=== PATIENT | female | born 1960 | race Caucasian/White ===

== ENCOUNTER → 2019-02-24 09:26 | Outpatient (CLI) | payer OTHER, SELFPAY ==
--- NOTE | 2019-02-24 09:37 | BD_ITS ---
STUDY: DUAL ENERGY X-RAY ABSORPTIOMETRY / DXA REASON FOR EXAM: Female, 59 years old. The patient is postmenopausal. History of breast cancer. TECHNIQUE: Bone Mineral Density (BMD) measurements of lumbar spine and bilateral hips were obtained. COMPARISON: Comparison is made with prior study dated January 24, 2017. FINDINGS: Lumbar Spine (L1-L4): g/cm2 (1.247) / T-score (0.6) / Z-score (1.7) Findings are suggestive of normal bone density with a low fracture risk. Left Femur Total: g/cm2 (0.951) / T-score (-0.5) / Z-score (0.5) Left Femoral Neck: g/cm2 (0.920) / T-score (-0.9) / Z-score (0.4) Right Femur Total: g/cm2 (0.894) / T-score (-0.9) / Z-score (0.0) Right Femoral Neck: g/cm2 (0.879) / T-score (-1.1) / Z-score (0.1) The T-Scores on the most recent prior examination were: Lumbar Spine (L1-L4): There has been worsening of bone density since the previous examination. Left Femur Total: which represents a worsening of 0.5%. Right Femur Total: which represents a worsening of 7.4%. BD/Dexa Bone Density Study IMPRESSION: The patient is considered osteopenic as outlined below according to World Michael Organization (WHO) criteria with a low fracture risk. There has been worsening of bone density since the previous examination. Reference Information: The T-score is the number of standard deviations above or below the standard which is normal for young adults at their peak bone mineral density. The World Health Organization (WHO) interprets the T-scores as follows: Above -1 Normal bone density Between -1 and -2.5 Osteopenia Equal to / or below -2.5 Osteoporosis As a practical clinical guideline, osteopenia may be graded as follows: Mild -1 through -1.5 Moderate -1.6 through -2.0 Severe -2.1 through -2.4 The Z-score is the number of standard deviations above or below age-matched controls. A Z-score of less than -1.5 would be considered abnormal. References: 1. NIH Osteoporosis and Related Bone Diseases http://www.osteo.org 2. International Society for Clinical Densitometry http://www.iscd.org 3. National Osteoporosis Foundation http://www.nof.org Electronically Signed: Dawson Medina, at 8:34 EST , Service support ,
== END ==
PROVIDERS: Family Provider Internal Medicine; PCP Internal Medicine; Referring Provider Internal Medicine Gastroenterology; Visit Provider Internal Medicine Gastroenterology
DX: K74.3 Primary biliary cirrhosis (principal); Z78.0 Asymptomatic menopausal state
CPT/HCPCS: 77080

== ENCOUNTER → 2019-03-02 10:23 | Outpatient (CLI) | payer OTHER, SELFPAY ==
[2019-03-02 12:35] LABS: Vitamin D,25 Hydroxy 70.4 ng/mL (29.95-100.01)
== END ==
PROVIDERS: Family Provider Internal Medicine; PCP Internal Medicine; Referring Provider Internal Medicine Gastroenterology; Visit Provider Internal Medicine Gastroenterology
DX: M85.9 Disorder of bone density and structure, unspecified (principal)
CPT/HCPCS: 36415; 82306

== ENCOUNTER → 2021-11-30 | Outpatient (CLI) | payer BC, SELFPAY ==
--- NOTE | 2021-11-30 08:11 | US_ITS ---
STUDY: ABDOMINAL ULTRASOUND - RIGHT UPPER QUADRANT REASON FOR VISIT: Female, 61 years old . Primary biliary cirrhosis. TECHNIQUE: Ultrasound evaluation of the right upper quadrant was performed with real-time and static barrios-scale imaging. TECHNICAL QUALITY: Adequate. COMPARISON: None. FINDINGS: Liver: The liver is enlarged and measures 18 cm. There is increased echogenicity consistent with fatty infiltration. The bile ducts are within normal limits. There is hepatic color flow. The direction of portal flow is hepatopetal. There is a 1.5 cm x 0.8 cm x 0.8 cm hemangioma in the right lobe of the liver. Gallbladder: Normal distended gallbladder. The gallbladder wall measures 1.3 mm. There is a negative sonographic Garcia''s sign. There is no pericholecystic fluid. There is a solitary echogenic gallstone within the gallbladder. This measures 1.2 cm x 1 cm x 0.4 cm. Common Bile Duct (C.B.D.): The common bile duct measures 3.6 mm. Pancreas: Normal size of the head, body and tail of the pancreas. There is normal echogenicity of the pancreas. There is no demonstrated pancreatic mass or cyst. Right Kidney: Normal size of the right kidney. The right kidney measures 10.8 cm x 4.5 cm x 4.1 cm. Normal renal cortex. The right cortex measures 1.5 cm. There is no demonstrated renal mass or cyst. There is no right hydronephrosis. Findings suggestive of a 2 nonobstructive intrarenal calculi. The larger measures 11 mm x 9 mm x 3 mm. US/Abdomen Limited IMPRESSION: Hepatomegaly and fatty infiltration of the liver. 1.5 cm x 0.8 cm x 0.8 cm hemangioma in the right lobe. Small right intrarenal calculus. Electronically Signed: Dawson Medina MD at 15:08 EDT ,
--- NOTE | 2021-11-30 08:12 | US_ITS ---
STUDY: ABDOMINAL ULTRASOUND - ELASTOGRAPHY REASON FOR VISIT: Female, 61 years old. History of primary biliary cirrhosis. TECHNIQUE: Liver stiffness measurements were obtained on a [employer] RS 85 ultrasound machine using a CA 1-7 probe following the SRU guidelines. 3 measurements were obtained using a 2-D-SWE method. The IQR/M was 19% suggesting a quality data set. TECHNICAL QUALITY: Adequate. COMPARISON: Comparison is made with prior sonogram done earlier today. FINDINGS: Liver: And homogeneous echotexture of the liver. Median liver stiffness measured 6.2 kPa. US/Elastography Parenchyma/Organ IMPRESSION: Liver stiffness measures 6.2 kPa compatible with F2-F3 (Mild to moderate liver fibrosis) Metavir score. Electronically Signed: Dawson Medina MD at 15:11 EDT ,
--- NOTE | 2021-11-30 08:12 | RAD_ITS ---
STUDY: X-RAY - ESOPHAGUS (BARIUM SWALLOW) WITH FLUOROSCOPY REASON FOR EXAM: Female, 61 years old. DYSPHAGIA. Foods get stuck in the esophagus. TECHNIQUE: 26 view(s) of the esophagus were obtained following swallowing of barium. FLUOROSCOPY TIME (if supplied): (54 seconds) minutes/seconds COMPARISON: None. FINDINGS: There is no demonstrated esophageal foreign body. There is no demonstrated stricture or mucosal abnormality. Normal gastroesophageal junction, without a demonstrated hiatal hernia. Tertiary contraction of the distal esophagus. The patient ingested a 12 mm tablet of barium. The tablet described at the gastroesophageal junction. There is atherosclerotic tortuosity of the aortic arch and descending thoracic aorta. Normal visualized pulmonary parenchyma. Normal visualized osseous structures of the thorax. RAD/Esophagus Dual Contrast IMPRESSION: The patient ingested 12 mm tablet that barium. The tablet is trapped at the gastroesophageal junction. Electronically Signed: Dawson Medina MD at 9:36 EDT ,
== END | disposition home or self-care (01) ==
PROVIDERS: PCP Internal Medicine; Referring Provider Internal Medicine Gastroenterology; Visit Provider Internal Medicine Gastroenterology
DX: R13.10 Dysphagia, unspecified (principal)
CPT/HCPCS: 74221; 76705; 76981

== ENCOUNTER → 2021-12-27 | Outpatient (CLI) | payer BC, SELFPAY ==
--- NOTE | 2021-12-27 11:23 | BD_ITS ---
STUDY: DUAL ENERGY X-RAY ABSORPTIOMETRY / DXA REASON FOR EXAM: Female, 61 years old. Z780. Patient is postmenopausal. TECHNIQUE: Bone Mineral Density (BMD) measurements of lumbar spine and left hip were obtained. COMPARISON: Comparison is made with prior study 02/24/2019. FINDINGS: Lumbar Spine (L1-L4): g/cm2 (1.054) / T-score (0.1) / Z-score (1.7) Findings are suggestive of normal bone density with a low fracture risk. Left Femur Total: g/cm2 (0.931) / T-score (-0.1) / Z-score (1.0) Left Femoral Neck: g/cm2 (0.776) / T-score (-0.7) / Z-score (0.8) The T-Scores on the most recent prior examination were: Lumbar Spine (L1-L4): There has been worsening of bone density since the previous examination. Left Femur Total: which represents an improvement of 5.1%. BD/Dexa Bone Density Study IMPRESSION: The patient is considered normal as outlined below according to World Michael Organization (WHO) criteria with a low fracture risk. There has been improvement of bone density since the previous examination. Reference Information: The T-score is the number of standard deviations above or below the standard which is normal for young adults at their peak bone mineral density. The World Health Organization (WHO) interprets the T-scores as follows: Above -1 Normal bone density Between -1 and -2.5 Osteopenia Equal to / or below -2.5 Osteoporosis As a practical clinical guideline, osteopenia may be graded as follows: Mild -1 through -1.5 Moderate -1.6 through -2.0 Severe -2.1 through -2.4 The Z-score is the number of standard deviations above or below age-matched controls. A Z-score of less than -1.5 would be considered abnormal. References: 1. NIH Osteoporosis and Related Bone Diseases www osteo.org 2. International Society for Clinical Densitometry www iscd.org 3. National Osteoporosis Foundation www nof.org Electronically Signed: Dawson Medina MD at 14:25 EDT ,
== END | disposition home or self-care (01) ==
PROVIDERS: PCP Internal Medicine; Visit Provider Internal Medicine Gastroenterology
DX: Z78.0 Asymptomatic menopausal state (principal)
CPT/HCPCS: 77080

== ENCOUNTER 2023-07-08 16:09 | Emergency (ER) | payer BC, SELFPAY ==
[2023-07-08 16:09] VITALS: BP 133/90; PULSE 96; RESP 16; TEMP 36.6; O2SAT 97; BMI 29.9
[2023-07-08 17:38] LABS: Mucous, Urine 0 SEEN /hpf (<or=2+)
[2023-07-08 17:40] LABS: Absolute Lymphocyte Count 1.06 X10^3/uL (0.83-4.51); Absolute Neutrophil Count 6.5 X10^3/uL (2.0-7.7); Basophil# 0.04 X10^3/uL; Basophil% 0.5 % (0-1); Eosinophil# 0.05 X10^3/uL; Eosinophils% 0.6 % (0-5); Hematocrit 32.3 % (37-47); Hemoglobin 10.4 g/dL (12.0-15.0); Lymphocyte # 1.06 X10^3/ul (0.83-4.51); Lymphocyte % 12.7 % (19-41); Mean Corp Hgb Conc 32.2 g/dL (32-36); Mean Corpuscular Hgb 27.8 pg (27.0-32.0); Mean Corpuscular Volume 86.4 fL (81-99); Mean Platelet Vol. 10.4 fl (6.2-12.0); Monocyte# 0.71 X10^3/uL; Monocyte% 8.5 % (0-10); NRBC Flagged by Analyzer 0 % (0-5); Neutrophil # 6.47 X10^3/uL (2.7-7.7); Neutrophil % 77.5 % (47-70); Platelet Count 240 K/mm3 (150-450); RBC Distribution Width CV 14.3 % (11.6-14.6); RBC Distribution Width SD 45.2 fl (35.1-43.9); Red Blood Count 3.74 M/mm3 (4.2-5.4); White Blood Count 8.4 K/mm3 (4.4-11.0)
[2023-07-08 17:53] LABS: Anion Gap 6 (5-15); BUN 15 mg/dL (7-18); BUN/Creat Ratio 13.5 RATIO (10-20); Calcium,Total 9.1 mg/dL (8.5-10.1); Chloride 102 mmol/L (98-107); Creatinine, Serum 1.11 mg/dL (0.55-1.02); EST Glomerular Filtration Rate 53 mL/min (>60); Est Glom Filt Rate - Afr Amer 64 mL/min (>60); Estimated Creatinine Clearance 56.04 ml/min; Glucose 294 mg/dL (74-106); Potassium 3.7 mmol/L (3.5-5.1); Sodium Level 137 mmol/L (136-145)
[2023-07-08 18:01] LABS: Color, Urine Yellow (Yellow); Glucose, Dipstick 1000 mg/dl (Normal); Ketone-Dipstick Negative (Negative); Leukocyte Esterase-Dipstick 500 /ul (Negative); Nitrite-Dipstick Negative (Negative); Occult Blood-Urine 250 /ul (Negative); Protein-Dipstick 100 mg/dl (Negative); Specific Gravity, Urine 1.015 (1.002-1.030); Urine Bilirubin Dipstick Negative (Negative); Urine Clarity Cloudy (Clear); Urine Urobilinogen Normal (Normal)
--- NOTE | 2023-07-08 18:44 | EX.ED.DYSGE1 ---
HPI History of Present Illness Chief Complaint: Complaint Narrative Narrative: 63-year-old female presenting with vague complaint of weakness. She states she just feels off. Patient states she woke up this way but feels better now. She denies chest pain or shortness of breath. She denies fevers or chills. She denies nausea or vomiting. She does state that she has some mild suprapubic pain which is more increased on the left. She states she was at the urgent care prior to coming here and had some blood in her urine. She has increased urinary frequency but no dysuria. No history of kidney stones. No back or flank pain. No diarrhea or constipation. [facility] Medical History Abnormal mammogram of left breast Breast cancer HTN (hypertension) Home Medications trazodone 50 mg tablet 25 mg PO QHS PRN Sleep 06/07/14 [History Last Taken 06/06/14 22:00] ascorbic acid (vitamin C) 100 mg tablet 500 mg PO QDAY 03/29/17 [History Last Taken Unknown] calcium carbonate 600 mg calcium (1,500 mg) tablet (Calcium) 600 mg PO QDAY 03/29/17 [History Last Taken Unknown] lisinopril 20 mg-hydrochlorothiazide 12.5 mg tablet 1 tab PO QDAY 03/29/17 [History Last Taken Unknown] ursodiol 500 mg tablet (DARRELL Forte) 1,500 mg PO QDAY 03/29/17 [History Last Taken Unknown] vitamin E (dl, acetate) 45 mg (100 unit) capsule 400 unit PO QDAY 03/29/17 [History Last Taken Unknown] aspirin 81 mg chewable tablet 81 mg PO ONCE 04/04/17 [History Last Taken 04/16/17] cyanocobalamin (vitamin B-12) 1,000 mcg capsule 1,000 mcg PO DAILY 04/23/17 [History Last Taken Unknown] ergocalciferol (vitamin D2) 1,250 mcg (50,000 unit) capsule (Vitamin D2) 1.25 mg PO TUSA 04/23/17 [History Last Taken Unknown] hydrocodone-acetaminophen 5-325mg 5mg-325mg 1 tab PO Q6H PRN PRN Pain ##10 04/24/17 [Rx Last Taken Unknown] cephalexin 500 mg capsule 500 mg PO Q12 #14 CAPSULES 07/08/23 [Rx Last Taken Unknown] metformin 500 mg tablet,extended release 24 hr 500 mg PO BID #60 tabs 07/08/23 [Rx Last Taken Unknown] Allergy/AdvReac Type Severity Reaction Status Date / Time No Known Allergies Allergy Verified 07/08/23 16:09 Family History Mother Diabetes Heart disease Hypertension CVA (cerebral vascular accident) Father Diabetes Hypertension Surgical History History of section S/P breast biopsy S/P total knee replacement Social History Smoking Status: Never smoker alcohol intake: current alcohol intake frequency: 0-2 drinks per day substance use type: does not use EXAM Physical Exam Const Vital Signs: 07/08/23 16:09 07/08/23 19:00 07/08/23 20:23 Temperature 97.9 F 98.3 F 98.4 F Temperature Source Temporal Temporal Oral Pulse Rate 96 92 71 Respiratory Rate 16 16 16 Blood Pressure 133/90 H 152/89 H 138/74 H Blood Pressure Mean 104 110 95 Pulse Ox 97 97 96 Oxygen Delivery Method Room Air Room Air Positive well nourished General Appearance ED: NAD; Negative for pallor HEENT Reports moist mucous membranes Eyes PERRL and EOMs intact bilaterally Chest Wall inspection of chest normal Resp normal respiratory effort and clear to auscultation bilaterally Auscultation: Negative for rales, rhonchi or wheezes Cardio regular rate and regular rhythm GI GI Narrative: Mild suprapubic tenderness on the left Neuro oriented x3 Sensorium / Orientation: alert Psych mental status grossly normal Skin no rashes or lesions noted General Skin Exam: Negative for jaundice or pallor MDM MDM MDM Narrative Medical decision making narrative: Patient with mild complaints of urine blood in her urine. She states she feels off. Patient denies urinary frequency without dysuria. After discussion patient states that she had blood work done recently which showed her blood sugar was high and she has no history of diabetes. She is not on any medications. She states her blood sugars have been in the 300s. Differential includes new onset diabetes, dehydration, anemia, electro abnormalities, UTI, pyelonephritis. CBC was obtained to assess white blood cell count, hemoglobin, platelets. BMP to assess renal function, electrolytes, glucose, anion gap. Urinalysis to assess for UTI. CBC shows normal white blood cell count. Hemoglobin 10.4 with no recent comparison. Creatinine slightly elevated 1.11 and patient was given IV fluids. Urinalysis shows 500 leukocyte esterase, greater than 100 white blood cells, 2+ bacteria with 0-5 squamous epithelial cells. Patient given Keflex and urine culture sent. Discussed with Dr. Saha who is on-call for her primary care. He recommended starting metformin ER twice daily as the patient states that metformin would give her stomach issues and she already has stomach issues. Dr. Saha stated that the ER metformin would help with the symptoms. Patient also was given Keflex for home. Patient to follow-up next week for diabetic teaching and return precautions discussed. Impression: 1. Hyperglycemia 2. UTI Lab Data Attestation: I reviewed the patient's lab results. Labs: Laboratory Results - last 24 hr 07/08/23 17:25 WBC 8.4 RBC 3.74 L Hgb 10.4 L Hct 32.3 L MCV 86.4 MCH 27.8 MCHC 32.2 RDW Std Deviation 45.2 H RDW Coeff of Rosie 14.3 Plt Count 240 MPV 10.4 Immature Gran % (Auto) 0.200 Neut % (Auto) 77.5 H Lymph % (Auto) 12.7 L [place] % (Auto) 8.5 Eos % (Auto) 0.6 Baso % (Auto) 0.5 Absolute Neuts (auto) 6.5 Absolute Lymphs (auto) 1.06 Nucleated RBC % 0 Sodium 137 Potassium 3.7 Chloride 102 Carbon Dioxide 29.0 Anion Gap 6 BUN 15 Creatinine 1.11 H Estim Creat Clear Calc 56.04 Est GFR (MDRD) Af Amer 64 Est GFR (MDRD) Non-Af 53 L BUN/Creatinine Ratio 13.5 Glucose 294 H Calcium 9.1 Urine Color Yellow Urine Clarity Cloudy Urine pH 6.0 Ur Specific [place] 1.015 Urine Protein 100 H Urine Glucose (UA) 1000 H Urine Ketones Negative Urine Occult Blood 250 H Urine Nitrite Negative Urine Bilirubin Negative Urine Urobilinogen Normal Ur Leukocyte Esterase 500 H Urine RBC 10-25 SEEN Urine WBC >100 SEEN Ur Squamous Epith Cells 0-5 SEEN Amorphous Sediment 1+ URATE Urine Bacteria 2+ Urine Mucus 0 SEEN Discharge Plan Triage Chief Complaint: Complaint ED Provider: Jaquan Nelson Dx/Rx/DC Orders Instructions: ED Diabetic Hyperglycemia, ED Cystitis Female Adult Prescriptions: New metformin 500 mg tablet extended release 24 hr 500 mg PO BID Qty: 60 0RF cephalexin 500 mg capsule 500 mg PO Q12 Qty: 14 0RF No Action aspirin 81 mg tablet,chewable 81 mg PO ONCE lisinopril-hydrochlorothiazide 20-12.5 mg tablet 1 tab PO QDAY vitamin E (dl, acetate) 100 unit capsule 400 unit PO QDAY ascorbic acid (vitamin C) 100 mg tablet 100 mg tablet 500 mg PO QDAY calcium carbonate [Calcium 600] 600 mg calcium (1,500 mg) tablet 600 mg PO QDAY ursodiol [DARRELL Forte] 500 mg tablet 1,500 mg PO QDAY trazodone 50 MG tablet 25 mg PO QHS PRN (Reason: Sleep) ergocalciferol (vitamin D2) [Vitamin D2] 50,000 UNIT capsule 1.25 mg PO TUSA cyanocobalamin (vitamin B-12) 1,000 MCG capsule 1,000 mcg PO DAILY hydrocodone-acetaminophen 1 TABLET tablet 1 tab PO Q6H PRN PRN (Reason: Pain) Qty: 10 0RF Primary Care Provider: Asha Pratt Referrals: Asha Pratt MD [Primary Care Provider] - Disposition Disposition: Home, Self Care
[2023-07-08 18:53] LABS: Amorphous Sediment 1+ URATE; Bacteria 2+ /hpf (None Seen); Red Blood Cells-Urine 10-25 SEEN /hpf (0-5); Squamous Epithelial Cells - UA 0-5 SEEN /hpf (5-10); White Blood Cells >100 SEEN /hpf (0-5)
[2023-07-08] MEDS: 0.9% Normal Saline (1000mL) 1,000 ML 999 ML IV (18:58)
[2023-07-08 19:00] VITALS: BP 152/89; PULSE 92; RESP 16; TEMP 36.8; O2SAT 97
[2023-07-08 20:23] VITALS: BP 138/74; PULSE 71; RESP 16; TEMP 36.9; O2SAT 96
[2023-07-08] MEDS: Cephalexin 250 MG Capsule 500 MG PO (20:32)
[2023-07-08 20:35] VITALS: BP 132/71; PULSE 72; RESP 15; TEMP 36.4; O2SAT 97
== END 2023-07-08 20:40 | disposition home or self-care (01) ==
PROVIDERS: Emergency Provider Student in an Organized Health Care Education/Training Program; PCP Internal Medicine; Visit Provider Student in an Organized Health Care Education/Training Program
DX: R73.9 Hyperglycemia, unspecified (principal); N39.0 Urinary tract infection, site not specified
CPT/HCPCS: 80048; 81001; 85025; 87086; 87088; 96365; 99284; J7030; A4216

== ENCOUNTER 2023-10-15 15:28 | Outpatient (RCR) | payer SELFPAY | END 2023-10-15 19:00 | disposition home or self-care (01) | LOC: PT 15:28 | PROVIDERS: PCP Internal Medicine | DX: Z00.00 Encounter for general adult medical examination without abnormal findings (principal) ==

== ENCOUNTER → 2024-03-24 | Outpatient (CLI) | payer MEDICARE, OTHER, SELFPAY ==
--- NOTE | 2024-03-24 08:27 | US_ITS ---
STUDY: ABDOMINAL ULTRASOUND - RIGHT UPPER QUADRANT REASON FOR VISIT: Female, 64 years old [place] TECHNIQUE: Ultrasound evaluation of the right upper quadrant was performed with real-time and static barrios-scale imaging. TECHNICAL QUALITY: Adequate. COMPARISON: 11/30/2021 FINDINGS: Liver: The liver measures 15.5 cm. There is normal echogenicity of the liver. The bile ducts are within normal limits. There is hepatic color flow. The direction of portal flow is hepatopetal. No change in 1.2 cm hyperechoic mass within the right lobe of liver likely consistent with a small hemangioma. Gallbladder: Normal distended gallbladder. The gallbladder wall measures 2 mm. There is a negative sonographic Garcia''s sign. There is no pericholecystic fluid. There are multiple echogenic structures within the gallbladder, consistent with multiple gallstones. Common Bile Duct (C.B.D.): The common bile duct measures 4 mm. Pancreas: Normal size of the head, body and tail of the pancreas. There is normal echogenicity of the pancreas. There is no demonstrated pancreatic mass or cyst. Right Kidney: Normal size of the right kidney. The right kidney measures 10.6 cm. Normal renal cortex. The right cortex measures 1.3 cm. There is no demonstrated renal mass or cyst. There is no right hydronephrosis. US/Abdomen Limited IMPRESSION: Cholelithiasis. Electronically Signed: Dominic Tracy MD at 12:47 EST ,
--- NOTE | 2024-03-24 09:13 | BD_ITS ---
STUDY: DUAL ENERGY X-RAY ABSORPTIOMETRY / DXA REASON FOR EXAM: Female, 64 years old. Z780 TECHNIQUE: Bone Mineral Density (BMD) measurements of lumbar spine and left hip were obtained. COMPARISON: None. FINDINGS: Lumbar Spine (L1-L4): g/cm2 (1.062) / T-score (0.1) / Z-score (1.9) Findings are suggestive of normal bone density with a low fracture risk. Left Femur Total: g/cm2 (0.925) / T-score (-0.1) / Z-score (1.1) Left Femoral Neck: g/cm2 (0.757) / T-score (-0.8) / Z-score (0.7) The T-Scores on the most recent prior examination were: Lumbar Spine (L1-L4): There has been improvement of bone density since the previous examination. Left Femur Total: which represents a worsening of 0.7%. BD/Dexa Bone Density Study IMPRESSION: The patient is considered normal as outlined below according to World Michael Organization (WHO) criteria with a low fracture risk. There has been improvement of bone density since the previous examination. Reference Information: The T-score is the number of standard deviations above or below the standard which is normal for young adults at their peak bone mineral density. The World Health Organization (WHO) interprets the T-scores as follows: Above -1 Normal bone density Between -1 and -2.5 Osteopenia Equal to / or below -2.5 Osteoporosis As a practical clinical guideline, osteopenia may be graded as follows: Mild -1 through -1.5 Moderate -1.6 through -2.0 Severe -2.1 through -2.4 The Z-score is the number of standard deviations above or below age-matched controls. A Z-score of less than -1.5 would be considered abnormal. References: 1. NIH Osteoporosis and Related Bone Diseases www osteo.org 2. International Society for Clinical Densitometry www iscd.org 3. National Osteoporosis Foundation www nof.org Electronically Signed: Dawson Medina MD at 8:30 EST ,
== END | disposition home or self-care (01) ==
LOC: OPBD 08:26
PROVIDERS: PCP Internal Medicine; Referring Provider Internal Medicine Gastroenterology; Visit Provider Internal Medicine Gastroenterology
DX: Z78.0 Asymptomatic menopausal state (principal); K74.3 Primary biliary cirrhosis
CPT/HCPCS: 76705; 77080

== ENCOUNTER 2024-05-21 11:40 | Emergency (ER) | payer MEDICARE, OTHER, SELFPAY ==
[2024-05-21 11:41] VITALS: BP 197/128; PULSE 124; RESP 16; TEMP 36.4; O2SAT 98; BMI 29.0
--- NOTE | 2024-05-21 12:03 | EKG12_ITS ---
Test Reason : SOB Blood Pressure : */* mmHG Vent. Rate : 126 BPM Atrial Rate : 126 BPM P-R Int : 136 ms QRS Dur : 80 ms QT Int : 312 ms P-R-T Axes : 43 15 72 degrees QTcB Int : 451 ms Sinus tachycardia Possible Left atrial enlargement Borderline ECG Confirmed by EDUARDO NARAYAN, MIKALEA ([id number]), legal editor SERENITY CARLSON ([id number]) on 05/25/2024 8:06:33 AM Referred By: Confirmed By: MIKAELA CLARK MD
--- NOTE | 2024-05-21 12:09 | EX.ED.DYSGE1 ---
HPI History of Present Illness Chief Complaint: Hypertension Informant: patient Narrative Narrative: Presents for evaluation of elevated blood pressure today 214/160. She has been noticing palpitations for 3 days mild dyspnea with deep breaths today. Postop day 3 left breast capsule removal outpatient under general anesthesia. No leg swelling or cramping. No history of PE or DVT. Denies cough symptoms. Denies vomiting or diarrhea. She is tolerating oral fluids. Denies headache chest pains or abdominal pain. 3 weeks ago had added blood pressure medicine of amlodipine 2.5 mg to her 50 mg losartan by her PCP due to systolic blood pressure 150s. She did not take her medications today.Breast cancer history currently on oral chemotherapy and hormone therapy. She is followed by Dr. Olivia. [facility] Medical History Acute kidney injury Chemotherapy induced cardiomyopathy Malignant neoplasm of lower-outer quadrant of left breast of female, estrogen receptor positive Type 2 diabetes mellitus with hyperglycemia Primary biliary cirrhosis History of chemotherapy Breast cancer Abnormal mammogram of left breast HTN (hypertension) Home Medications ?Medication ?Instructions ?Recorded ?Last Taken ?Type ascorbic acid (vitamin C) 100 mg 500 mg PO QDAY 03/29/17 05/20/24 History tablet ursodiol 500 mg tablet (DARRELL Forte) 1,500 mg PO QDAY 03/29/17 05/20/24 History vitamin E (dl, acetate) 45 mg (100 400 unit PO QDAY 03/29/17 05/20/24 History unit) capsule aspirin 81 mg chewable tablet 81 mg PO ONCE 04/04/17 05/20/24 History cyanocobalamin (vitamin B-12) 1,000 mcg PO DAILY 04/23/17 05/20/24 History 1,000 mcg capsule ergocalciferol (vitamin D2) 1,250 50,000 unit PO QWEEK 09/03/23 Unknown History mcg (50,000 unit) capsule (Vitamin D2) everolimus (antineoplastic) 10 mg 10 mg PO DAILY 09/03/23 05/20/24 History tablet exemestane 25 mg tablet 25 mg PO DAILY 09/03/23 05/20/24 History lorazepam 0.5 mg tablet 0.5 mg PO TID PRN anxiety 09/03/23 Unknown History pantoprazole 40 mg tablet,delayed 40 mg PO DAILY 09/03/23 05/20/24 History release calcium carbonate 1,000 mg PO DAILY 10/09/23 Unknown History glipizide 5 mg tablet, extended 5 mg PO BID 10/09/23 Unknown History release 24 hr losartan 50 mg tablet 50 mg PO DAILY #90 tabs 10/09/23 05/20/24 Rx amlodipine 2.5 mg tablet 2.5 mg PO DAILY 05/21/24 05/20/24 History Allergy/AdvReac Type Severity Reaction Status Date / Time No Known Allergies Allergy Verified 05/21/24 12:02 Family History Mother Diabetes Heart disease Hypertension CVA (cerebral vascular accident) Father Diabetes Hypertension Surgical History Hx of total mastectomy of left breast S/P breast biopsy S/P total knee replacement History of section Social History Smoking Status: Never smoker alcohol intake: current alcohol intake frequency: 0-2 drinks per day substance use type: does not use ROS ROS ED Constitutional Constitutional ED: Denies chills, fever(s) or sweats ENT ENT ED: Denies sore throat Cardiovascular Cardiovascular: Reports chest pain and palpitations; Denies leg edema or racing heartbeat Respiratory/Chest Respiratory/Chest: Reports dyspnea; Denies cough or dyspnea on exertion Gastrointestinal Gastrointestinal: Denies abdominal pain, diarrhea, nausea or vomiting Genitourinary Genitourinary ED: Denies dysuria, hematuria or urinary frequency Musculoskeletal Musculoskeletal: Denies back pain, extremity pain or neck pain Integumentary Denies rash or wounds Neurologic Neurologic: Denies headache(s), paresthesias or weakness EXAM Physical Exam Const Vital Signs: 05/21/24 11:41 05/21/24 11:59 05/21/24 14:09 Temperature 97.6 F L Temperature Source Oral Pulse Rate 124 H 119 H Respiratory Rate 16 Respiratory Effort Normal Respiratory Pattern Normal Blood Pressure 197/128 H 170/111 H Blood Pressure Mean 151 130 Pulse Ox 98 98 Oxygen Delivery Method Room Air 05/21/24 16:00 05/21/24 16:13 Temperature 97.4 F L Temperature Source Pulse Rate 112 H 112 H Respiratory Rate 14 14 Respiratory Effort Respiratory Pattern Blood Pressure 161/104 H 161/104 H Blood Pressure Mean 123 123 Pulse Ox 98 98 Oxygen Delivery Method Positive well nourished and well developed General Appearance ED: well developed and NAD HEENT HEENT Narrative: Mild dry mucosal membranes normocephalic and atraumatic Eyes General Eye ED: Yes normal appearance of both eyes Neck full ROM Chest Wall Chest Narrative: Left mastectomy. Drain to left chest, minimal drainage from SHYANN bulb. Resp normal respiratory effort and normal air movement Resp Narrative: Symmetric breath sounds. Effort and Inspection: symmetric chest movement; Negative for respiratory distress Cardio regular rhythm and no murmurs Rate: tachycardic Peripheral Pulses: pulses 2+ throughout GI normal to inspection, nondistended, normoactive bowel sounds and non-tender Palpation: Negative for guarding or rebound tenderness present Extremity normal to inspection General Extremety ED: Negative for edema or tenderness General Extremity: Negative for edema Neuro oriented x3 and no sensory deficits noted Sensorium / Orientation: awake and alert Skin no rashes or lesions noted and no wounds MDM MDM MDM Narrative Medical decision making narrative: Interventions / MDM: Differential diagnosis: Postop dyspnea, elevated blood pressure with history of hypertension. Diagnosis considered but do not suspect: Pulmonary embolism however CT negative. No hypertensive emergency findings. My EKG interpretation: Sinus rate of 126, no ST or T wave changes. Imaging independently reviewed and interpreted by myself: 1 view chest x-ray: Per radiology reporting chest tube however this was a drain tube. Reported apical small pneumothorax residual. CT angiogram chest: No pulmonary embolism, minimal pleural effusion bilaterally per radiology. No pneumothorax on CT. External documents reviewed: N/A Test considered but not ordered:N/A ED course: Patient tachycardic on arrival pulse ox 97 on room air. Slight dry mucosal membranes. No headaches or chest pains. Patient will be given IV fluids will obtain labs including D-dimer low risk Wells criteria with tachycardia and her recent surgery. Blood pressure 197/128. Will monitor and give her home dose of blood pressure medicines. 1350: Patient elevated D-dimer subsequent CTA chest neck for PE small bilateral pleural effusions. Reassured on findings. Blood pressure trending down with her medications. She will monitor her blood pressure. She is not hypoxic. She has follow-up with her doctor this coming Saturday. She will keep the appointment. Discussed tricked return precautions. All questions were answered. Re-evaluation: stable Disposition discussed with patient/family/significant other: Patient and spouse Case discussed with consulting clinician: N/A This note was generated with [employer] dictation software. It may contain incorrect words, spelling, and punctuation that were not noted in checking the note before signing. Lab Data Attestation: I reviewed the patient's lab results. Labs: Laboratory Results - last 24 hr 05/21/24 05/21/24 12:11 12:12 WBC 11.2 H RBC 4.02 L Hgb 10.9 L Hct 34.0 L MCV 84.6 MCH 27.1 MCHC 32.1 RDW Std Deviation 40.3 RDW Coeff of Rosie 13.2 Plt Count 298 MPV 10.2 Immature Gran % (Auto) 1.300 H Neut % (Auto) 73.0 H Lymph % (Auto) 15.6 L [place] % (Auto) 8.9 Eos % (Auto) 0.5 Baso % (Auto) 0.7 Absolute Neuts (auto) 8.2 H Absolute Lymphs (auto) 1.74 Nucleated RBC % 0 PT 13.2 INR 1.0 APTT 26.7 D-Dimer Quant (PE/DVT) 1.50 H* Sodium 137 Potassium 3.6 Chloride 106 Carbon Dioxide 23.0 Anion Gap 8 BUN 19 H Creatinine 1.04 H Estim Creat Clear Calc 58.10 Est GFR (MDRD) Af Amer 68 Est GFR (MDRD) Non-Af 57 L BUN/Creatinine Ratio 18.3 Glucose 200 H Calcium 9.2 Radiography Diagnostic Testing: Clinical Impression(s) from Imaging Studies Chest X-Ray 05/21/24 12:20 IMPRESSION: A left chest tube is in place, only a tiny left apical pneumothorax is seen. Questionable very small left pleural effusion. No right pleural effusion is evident. No evidence of significant pulmonary edema. No acute pneumonic process is otherwise noted. Cardiomediastinal silhouette is within the normal range for age and technique. Reading Location: [address] Chest CTA 05/21/24 14:23 IMPRESSION: No evidence of pulmonary embolism. Small bilateral pleural effusions slightly greater on the right side with mild degree of bibasilar atelectasis. Prominence of the septal lines suggestive of mild vascular congestion. One or more dose reduction techniques were used (e.g., Automated exposure control, adjustment of the mA and/or kV according to patient size, use of iterative reconstruction technique). Reading Location: [place] [address] Discharge Plan Triage Chief Complaint: Hypertension ED Provider: Rai Sterling Dx/Rx/DC Orders Clinical Impression: Dyspnea, Palpitations, Elevated blood pressure reading in office with diagnosis of hypertension Instructions: ED Dyspnea, ED Palpitations Prescriptions: No Action aspirin 81 mg tablet,chewable 81 mg PO ONCE vitamin E (dl, acetate) 100 unit capsule 400 unit PO QDAY ascorbic acid (vitamin C) 100 mg tablet 500 mg PO QDAY ursodiol [DARRELL Forte] 500 mg tablet 1,500 mg PO QDAY lorazepam 0.5 mg tablet 0.5 mg PO TID PRN (Reason: anxiety) exemestane 25 mg tablet 25 mg PO DAILY everolimus (antineoplastic) 10 mg tablet 10 mg PO DAILY pantoprazole 40 mg tablet,delayed release (DR/EC) 40 mg PO DAILY glipizide 5 mg tablet extended release 24hr 5 mg PO BID calcium carbonate 500 mg calcium (1,250 mg) tablet 1,000 mg PO DAILY losartan 50 mg tablet 50 mg PO DAILY Qty: 90 3RF cyanocobalamin (vitamin B-12) 1,000 MCG capsule 1,000 mcg PO DAILY ergocalciferol (vitamin D2) [Vitamin D2] 1,250 mcg (50,000 unit) capsule 50,000 unit PO QWEEK amlodipine 2.5 mg tablet 2.5 mg PO DAILY Primary Care Provider: Asha Pratt Referrals: Asha Pratt MD [Primary Care Provider] - 3-5 Days Activity Restrictions/Additional Instructions: CT chest negative for PE. Labs are stable. EKG sinus tachycardia. Continue oral fluids for hydration. Continue your blood pressure medicines. If you develop recurrent or worsening symptoms, return to ED for reevaluation. Keep your follow-up with your doctors. Print Language: [place] Disposition Disposition: Home, Self Care Discharge Date/Time: 05/21/24 16:14
[2024-05-21] MEDS: 0.9% Normal Saline (1000mL) 1,000 ML 1000 ML IV (12:10)
--- NOTE | 2024-05-21 12:20 | RAD_ITS ---
PROCEDURE: CHEST 1 VIEW (PORTABLE) REASON FOR EXAM: Shortness of breath. TECHNIQUE: AP portable upright chest. COMPARISON: No prior comparison studies are provided. RAD/Chest 1 View (Portable) IMPRESSION: A left chest tube is in place, only a tiny left apical pneumothorax is seen. Questionable very small left pleural effusion. No right pleural effusion is evident. No evidence of significant pulmonary edema. No acute pneumonic process is otherwise noted. Cardiomediastinal silhouette is within the normal range for age and technique. Reading Location: [id number]
[2024-05-21 12:25] LABS: Absolute Lymphocyte Count 1.74 X10^3/uL (0.83-4.51); Absolute Neutrophil Count 8.2 X10^3/uL (2.0-7.7); Basophil# 0.08 X10^3/uL; Basophil% 0.7 % (0-1); Eosinophil# 0.06 X10^3/uL; Eosinophils% 0.5 % (0-5); Hemoglobin 10.9 g/dL (12.0-15.0); Lymphocyte # 1.74 X10^3/ul (0.83-4.51); Lymphocyte % 15.6 % (19-41); Mean Corp Hgb Conc 32.1 g/dL (32-36); Mean Corpuscular Hgb 27.1 pg (27.0-32.0); Mean Corpuscular Volume 84.6 fL (81-99); Mean Platelet Vol. 10.2 fl (6.2-12.0); Monocyte% 8.9 % (0-10); NRBC Flagged by Analyzer 0 % (0-5); Neutrophil # 8.15 X10^3/uL (2.7-7.7); Platelet Count 298 K/mm3 (150-450); RBC Distribution Width CV 13.2 % (11.6-14.6); RBC Distribution Width SD 40.3 fl (35.1-43.9); Red Blood Count 4.02 M/mm3 (4.2-5.4); White Blood Count 11.2 K/mm3 (4.4-11.0)
[2024-05-21 12:34] LABS: Partial Thromboplast Time 26.7 Seconds (24.1-36.2); Prothrombin Time (Protime)PT. 13.2 SECONDS (11.7-14.9)
[2024-05-21 12:40] LABS: Anion Gap 8 (5-15); BUN 19 mg/dL (7-18); BUN/Creat Ratio 18.3 RATIO (10-20); Calcium,Total 9.2 mg/dL (8.5-10.1); Chloride 106 mmol/L (98-107); Creatinine, Serum 1.04 mg/dL (0.55-1.02); EST Glomerular Filtration Rate 57 mL/min (>60); Est Glom Filt Rate - Afr Amer 68 mL/min (>60); Glucose 200 mg/dL (74-106); Potassium 3.6 mmol/L (3.5-5.1); Sodium Level 137 mmol/L (136-145)
[2024-05-21] MEDS: Losartan Potassium 50 MG Tablet PO (13:14)
[2024-05-21] MEDS: amLODIPine 2.5 MG Tablet PO (13:15)
[2024-05-21 14:09] VITALS: BP 170/111; PULSE 119; O2SAT 98
--- NOTE | 2024-05-21 14:23 | CT_ITS ---
PROCEDURE: CTA CHEST W/WO CONTRAST REASON FOR EXAM: Dyspnea. Elevated D-dimer. Recent surgery. Removal of encapsulated breast implant on the left side. TECHNIQUE: CTA imaging of the chest with intravenous contrast. 3D reconstructions. CONTRAST: 100 cc of Isovue 370. COMPARISON: Comparison is made with prior study done earlier in the day. FINDINGS: Hardware: None. Mild subcutaneous emphysema overlying the left anterior chest wall in keeping with recent breast surgery. Lymph nodes: No mediastinal hilar or axillary lymphadenopathy. Heart: Normal heart size. No pericardial effusion. RV/LV Diameter Ratio: N/A Thoracic Aorta: No thoracic aortic aneurysm or dissection. Pulmonary Vessels: No evidence of acute pulmonary emboli through the major subsegmental branches. Most Proximal Level of Embolus (if embolus present): N/A Lungs and Airways: Mild bibasilar atelectasis. Prominence of the septal lines suggestive of mild vascular congestion. Pleura: Small bilateral pleural effusions right slightly greater than left. Upper Abdomen: Visualized portions of the upper abdominal viscera are unremarkable. Bones: Degenerative changes of the thoracic spine. CT/CTA Chest W/WO Contrast IMPRESSION: No evidence of pulmonary embolism. Small bilateral pleural effusions slightly greater on the right side with mild degree of bibasilar atelectasis. Prominence of the septal lines suggestive of mild vascular congestion. One or more dose reduction techniques were used (e.g., Automated exposure contr ol, adjustment of the mA and/or kV according to patient size, use of iterative reconstruction technique). Reading Location: [place] [id number]
[2024-05-21 16:00] VITALS: BP 161/104; PULSE 112; RESP 14; O2SAT 98
[2024-05-21 16:13] VITALS: BP 161/104; PULSE 112; RESP 14; TEMP 36.3; O2SAT 98
== END 2024-05-21 16:14 | disposition home or self-care (01) ==
PROVIDERS: Emergency Provider Emergency Medicine; PCP Internal Medicine; Visit Provider Emergency Medicine
DX: R06.00 Dyspnea, unspecified (principal); C50.512 Malignant neoplasm of lower-outer quadrant of left female breast; E11.9 Type 2 diabetes mellitus without complications; I10 Essential (primary) hypertension; R07.9 Chest pain, unspecified; Z79.899 Other long term (current) drug therapy; Z79.82 Long term (current) use of aspirin
CPT/HCPCS: 71045; 71275; 80048; 85025; 85379; 85610; 85730; 93005; 96360; 96361; 99284; Q9967; A4216

== ENCOUNTER → 2024-08-03 | Outpatient (CLI) | payer MEDICARE, OTHER, SELFPAY ==
[2024-08-03 15:44] LABS: Anion Gap 11 (5-15); BUN 29 mg/dL (4-19); BUN/Creat Ratio 34.2 RATIO (10-20); Calcium,Total 9.3 mg/dL (7.6-11.0); Carbon Dioxide 24.7 mmol/L (21.0-32.0); Chloride 103 mmol/L (98-108); Creatinine, Serum 0.84 mg/dL (0.70-1.20); EST Glomerular Filtration Rate 77 (>60); Glucose 153 mg/dL (70-99); Potassium 3.9 mmol/L (3.3-5.1); Sodium Level 139 mmol/L (133-145)
== END | disposition home or self-care (01) ==
LOC: LAB 13:40
PROVIDERS: PCP Internal Medicine; Referring Provider Internal Medicine Cardiovascular Disease; Visit Provider Internal Medicine Cardiovascular Disease
DX: I10 Essential (primary) hypertension (principal)
CPT/HCPCS: 36415; 80048

== ENCOUNTER 2024-11-15 17:38 | Inpatient (IN) | payer MEDICARE, OTHER, SELFPAY ==
[2024-11-15] VITALS (7 sets, daily range): BP systolic 93–121; BP diastolic 52–67; PULSE 86–102; RESP 16–18; TEMP 36.6–38.5; O2SAT 95–99; BMI 28.2; BMI 28.5
--- NOTE | 2024-11-15 17:55 | EX.ED.DYSGE1 ---
HPI History of Present Illness Chief Complaint: General Illness Informant: patient Onset/Context/Timing Onset: Days (3) Context: Gradual Onset Timing: Continuous Quality: Weakness Location: Generalized Worsened by: Nothing Relieved by: Nothing Narrative Narrative: Patient presents with diarrhea and weakness that has been getting worse over the past 3 days. Patient states she feels weak all over. Patient states it is gradually getting worse. Patient admits to decreased appetite. Patient states nothing makes her symptoms worse and nothing makes them better. Patient admits to some subjective fevers and chills. Patient also admits to some sweats. Patient admits to some decreased urine output but denies any dysuria or hematuria. [facility] Medical History History of removal of left breast implant (05/18/24) Acute kidney injury Chemotherapy induced cardiomyopathy Malignant neoplasm of lower-outer quadrant of left breast of female, estrogen receptor positive Type 2 diabetes mellitus with hyperglycemia Primary biliary cirrhosis History of chemotherapy Breast cancer Abnormal mammogram of left breast HTN (hypertension) Home Medications ?Medication ?Instructions ?Recorded ?Last Taken ?Type ascorbic acid (vitamin C) 100 mg 500 mg PO QDAY 03/29/17 05/20/24 History tablet vitamin E (dl, acetate) 45 mg (100 400 unit PO QDAY 03/29/17 05/20/24 History unit) capsule aspirin 81 mg chewable tablet 81 mg PO ONCE 04/04/17 05/20/24 History cyanocobalamin (vitamin B-12) 1,000 mcg PO DAILY 04/23/17 05/20/24 History 1,000 mcg capsule ergocalciferol (vitamin D2) 1,250 50,000 unit PO QWEEK 09/03/23 Unknown History mcg (50,000 unit) capsule (Vitamin D2) everolimus (antineoplastic) 10 mg 10 mg PO DAILY 09/03/23 05/20/24 History tablet exemestane 25 mg tablet 25 mg PO DAILY 09/03/23 05/20/24 History lorazepam 0.5 mg tablet 0.5 mg PO TID PRN anxiety 09/03/23 Unknown History pantoprazole 40 mg tablet,delayed 40 mg PO DAILY 09/03/23 05/20/24 History release calcium carbonate 1,000 mg PO DAILY 10/09/23 Unknown History amlodipine 5 mg tablet 5 mg PO QDAY #90 tabs 07/02/24 Unknown Rx insulin glargine 100 unit/mL (3 20 unit subcut QAM 07/02/24 Unknown History mL) subcutaneous pen (Lantus Solostar U-100 Insulin) metoprolol succinate 25 mg 25 mg PO QDAY 07/02/24 Unknown History tablet,extended release 24 hr ursodiol 500 mg tablet (DARRELL Forte) 1,250 mg PO QDAY 07/02/24 Unknown History hydrochlorothiazide 12.5 mg tablet 12.5 mg PO QDAY 11/02/24 Unknown History losartan 25 mg tablet 50 mg PO DAILY 11/15/24 Unknown History tirzepatide 2.5 mg/0.5 mL 2.5 mg subcut QWEEK 11/15/24 Unknown History subcutaneous pen injector (Mounjaro) trazodone 50 mg tablet 50 mg PO QHS 11/15/24 Unknown History Allergy/AdvReac Type Severity Reaction Status Date / Time No Known Allergies Allergy Verified 11/02/24 11:11 Family History Mother Diabetes Heart disease Hypertension CVA (cerebral vascular accident) Father Diabetes Hypertension Surgical History Hx of total mastectomy of left breast S/P breast biopsy S/P total knee replacement History of section Social History household members: spouse Smoking Status: Never smoker alcohol intake: current alcohol intake frequency: 0-2 drinks per day substance use type: does not use ROS ROS ED Constitutional Constitutional ED: Reports chills, fever(s), subjective and sweats Eyes Eyes: Reports blurry vision; Denies diplopia ENT ENT ED: Denies rhinorrhea or sore throat Cardiovascular Cardiovascular: Denies chest pain or palpitations Respiratory/Chest Respiratory/Chest: Denies cough or dyspnea Gastrointestinal Gastrointestinal: Reports diarrhea; Denies abdominal pain, nausea or vomiting Genitourinary Genitourinary ED: Denies dysuria or hematuria Musculoskeletal Musculoskeletal: Denies back pain or neck pain Integumentary Denies abscess or rash Neurologic Neurologic: Denies headache(s) or weakness Allergic/Immunologic Allergic/Immunologic ED: Denies mouth swelling or urticaria EXAM Physical Exam Const Vital Signs: 11/15/24 17:38 11/15/24 17:38 11/15/24 19:38 Temperature 97.8 F Temperature Source Oral Pulse Rate 92 86 Pulse Rate [Lying] Pulse Rate [Sitting (for 1 minute prior to obtaining)] Pulse Rate [Standing (for 1 minute prior to obtaining)] Respiratory Rate 18 16 Respiratory Effort Normal Non-Labored Respiratory Pattern Normal Blood Pressure 103/67 103/62 Blood Pressure [Lying] Blood Pressure [Sitting (for 1 minute prior to obtaining)] Blood Pressure [Standing (for 1 minute prior to obtaining)] Blood Pressure Mean 79 75 Blood Pressure Mean [Lying] Blood Pressure Mean [Sitting (for 1 minute prior to obtaining)] Blood Pressure Mean [Standing (for 1 minute prior to obtaining)] Pulse Ox 99 96 Oxygen Delivery Method Room Air Room Air 11/15/24 19:56 11/15/24 21:00 Temperature Temperature Source Pulse Rate 99 Pulse Rate [Lying] 90 Pulse Rate [Sitting (for 1 minute prior to obtaining)] 98 Pulse Rate [Standing (for 1 minute prior to obtaining)] 93 Respiratory Rate 16 Respiratory Effort Respiratory Pattern Blood Pressure 101/55 L Blood Pressure [Lying] 95/59 L Blood Pressure [Sitting (for 1 minute prior to obtaining)] 121/61 H Blood Pressure [Standing (for 1 minute prior to obtaining)] 93/52 L Blood Pressure Mean 70 Blood Pressure Mean [Lying] 71 Blood Pressure Mean [Sitting (for 1 minute prior to obtaining)] 81 Blood Pressure Mean [Standing (for 1 minute prior to obtaining)] 65 Pulse Ox 97 Oxygen Delivery Method Room Air Positive well nourished and well developed General Appearance ED: well developed and NAD HEENT Reports moist mucous membranes Neck supple and no JVD Resp normal respiratory effort and clear to auscultation bilaterally Cardio regular rate and regular rhythm GI non-tender and non-distended Palpation: soft Neuro oriented x3, CN's II-XII intact bilaterally and no sensory deficits noted Sensorium / Orientation: alert Motor Exam: strength 5/5 throughout Psych mental status grossly normal MDM MDM MDM Narrative Medical decision making narrative: Differential diagnosis includes pneumonia, bronchitis, electrolyte abnormality, dehydration, urinary tract infection, and anxiety. CBC will be obtained to assess for leukocytosis and anemia. Basic metabolic profile will be obtained to assess for electrolyte abnormality or renal function. Urinalysis will be obtained to assess for urinary tract infection and hematuria. COVID-19, influenza, and RSV PCR will be obtained to assess for viral illness. History & Record Review Additional record(s) reviewed:: Prior outpatient record and Prior labs Lab Data Attestation: I reviewed the patient's lab results. Lab results narrative: CBC was reviewed. There is a leukocytosis of 12.9. Hemoglobin is slightly low at 9.2 and hematocrit was 26.9. Platelet count was slightly low at 135. Basic metabolic profile was reviewed. Sodium was low at 130 and potassium was low at 2.8. Chloride was low at 93. BUN was elevated at 45 and creatinine was elevated at 3.98. These were new compared to previous results. Urinalysis was reviewed. Leukocyte esterase was 500. There are greater than 100 white blood cells and 2+ bacteria. COVID-19 PCR was reviewed and was negative. Influenza PCR was reviewed and was negative for influenza A and influenza B. RSV PCR was reviewed and was negative. Labs: Laboratory Results - last 24 hr 11/15/24 11/15/24 18:47 19:12 WBC 12.9 H RBC 3.28 L Hgb 9.2 L Hct 26.9 L MCV 82.0 MCH 28.0 MCHC 34.2 RDW Std Deviation 39.1 RDW Coeff of Rosie 13.0 Plt Count 135 L MPV 10.0 Immature Gran % (Auto) 0.300 Neut % (Auto) 86.5 H Lymph % (Auto) 8.9 L [place] % (Auto) 4.2 Eos % (Auto) 0.0 Baso % (Auto) 0.1 Absolute Neuts (auto) 11.1 H Absolute Lymphs (auto) 1.15 Nucleated RBC % 0 Sodium 130 L Potassium 2.8 L Chloride 93 L Carbon Dioxide 22.6 Anion Gap 14 BUN 45 H Creatinine 3.18 H Estim Creat Clear Calc 18.75 L Est GFR (MDRD) Non-Af 16 L BUN/Creatinine Ratio 14.1 Glucose 123 H Calcium 7.7 Phosphorus 2.7 Magnesium 1.5 Urine Color Yellow Urine Clarity Sl. Cloudy Urine pH 5.0 Ur Specific [place] 1.010 Urine Protein 100 H Urine Glucose (UA) Normal Urine Ketones Negative Urine Occult Blood 250 H Urine Nitrite Negative Urine Bilirubin Negative Urine Urobilinogen Normal Ur Leukocyte Esterase 500 H Urine RBC 0-5 SEEN Urine WBC >100 SEEN Ur Squamous Epith Cells 0 SEEN Ur Transition Epith Cell 0-5 SEEN Ur Renal Epithelial Cell 0-5 SEEN Urine Bacteria 2+ Urine Mucus 0 SEEN Management Discussion w/another healthcare provider: Hospitalist Treatment and Re-Evaluation :: Patient was given IV fluids. Patient was given a dose of oral potassium. Patient was advised of her findings. Patient was given a dose of Rocephin. Patient was advised of the need for hospitalization. Patient is agreeable with this. Case was discussed with the hospitalist. She will admit the patient to her service. Patient understood and was agreeable with the plan. All questions were answered. Discharge Plan Dx/Rx/DC Orders Clinical Impression: Acute kidney injury, Hypokalemia, Breast cancer, Urinary tract infection Disposition Disposition: Acute Care Hospital [facility] Discharge Date/Time: 11/15/24 23:08
--- OUTSIDE RECORDS SUMMARY | 2024-11-15 18:34 | XMS RPT_ITS | CCD ---
Author Organization [facility] Care Team Providers Care Quality Control Associate Name Role Phone Mindi Dasilva Unavailable Subhash Silverio Unavailable Palma Carter Unavailable Surinder Valdivia Unavailable Emily Arteaga Unavailable Unavailable Zee Avila Unavailable Unavailable Unavailable Unavailable Ankush RN, Dena Unavailable Unavailable Raul NARAYAN MD, Jesus Unavailable Lisa Malhotra RN Unavailable Jacinta Rivas MD Primary Care Provider Taz Howard MD Unavailable Taz Howard MD Unavailable Dave PT, Lizeth Unavailable Ankush MIRAMONTES, Dena Unavailable Unavailable Raul NARAYAN MD, Jesus Unavailable Lisa Malhotra RN Unavailable Jacinta Rivas MD Primary Care Provider Taz Howard MD Unavailable Taz Howard MD Unavailable Dave PT, Lizeth Unavailable Ankush MIRAMONTES, Dena Unavailable Unavailable Raul NARAYAN MD, Jesus Unavailable Jacinta Rivas MD Primary Care Provider Taz Howard MD Unavailable Taz Howard MD Unavailable Dave PT, Lizeth Unavailable Arash NARAYAN, Eliz Mackey Unavailable Kathy Hartmana Dorsey Unavailable KAM DANGELO Attending Unavailable SERENA CARRASCO Referring Unavailable TALAMPAS, JACINTA D Primary Care Unavailable KAM DANGELO Admitting Unavailable KAM DANGELO Attending Unavailable TALAMPAS, JACINTA D Primary Care Unavailable Hailey Ney F Unavailable Ankush RN, Dena Unavailable Unavailable Ney Hart MD Unavailable Mino Overton Unavailable Unavailcaitlin Carter MD, Jesus Unavailable Eliz Bingham MD Unavailable Paneccasio [facility], Tatianna Unavailable Jacinta Rivas MD Primary Care Provider Dave PT, Lizeth Unavailable Roscoe MIRAMONTES, Lisa Unavailable Burr 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, Cathy Unavailable Rona HULLER OPERATOR.PLATEN GRINDER, Lisbet Unavailable Rona HULLER OPERATOR.PLATEN GRINDER, Lisbet Angelita Unavailable Rona HULLER OPERATOR.PLATEN GRINDER, Lisbet Unavailable Rona HULLER OPERATOR.PLATEN GRINDER, Lisbet Unavailable Rona HULLER OPERATOR.PLATEN GRINDER, Lisbet Unavailable TALAMPAS, JACINTA D Primary Care Unavailable ELIZ BINGHAM Referring Unavailable TALAMPAS, JACINTA D Primary Care Unavailable MICKI BUTLER Attending Unavailable Burr 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, Cathy Unavailable Burr 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, Cathy Unavailable SERENA CARRASCO Referring Unavailable TALAMPAS, JACINTA D Primary Care Unavailable SERENA CARRASCO Referring Unavailable TALAMPAS, JACINTA D Primary Care Unavailable NEL DAY Referring Unavailable TALAMPAS, JACINTA D Primary Care Unavailable TALAMPAS, JACINTA D Primary Care Unavailable PROVIDER, UNKNOWN Referring Unavailable MASCI, SERENA A Referring Unavailable TALAMPAS, JACINTA D Primary Care Unavailable MASCI, SERENA A Referring Unavailable TALAMPAS, JACINTA D Primary Care Unavailable MASCI, SERENA A Referring Unavailable TALAMPAS, JACINTA D Primary Care Unavailable MASCI, SERENA A Referring Unavailable TALAMPAS, JACINTA D Primary Care Unavailable MASCI, SERENA A Referring Unavailable TALAMPAS, JACINTA D Primary Care Unavailable MASCI, SERENA A Referring Unavailable TALAMPAS, JACINTA D Primary Care Unavailable MASCI, SERENA A Referring Unavailable TALAMPAS, JACINTA D Primary Care Unavailable MASCI, SERENA A Referring Unavailable TALAMPAS, JACINTA D Primary Care Unavailable Raffiampas , Dr. Jacinta North Primary Care Provider [phone] Nata NARAYAN, Dr. Mendez Attending Provider Nata NARAYAN, Dr. Mendez Referring Provider Terence NARAYAN, Dr. Jacinta North Referring Provider [phone] Paulo Bajwa Attending Provider [phone] MILAGROS BROWN Attending Unavailable BLOCK, MICKI Referring Unavailable TALAMPAS, JACINTA D Primary Care Unavailable BLOCK, MICKI Referring Unavailable TALAMPAS, JACINTA D Primary Care Unavailable BLOCK, MICKI Referring Unavailable TALAMPAS, JACINTA D Primary Care Unavailable BLOCK, MICKI Referring Unavailable TALAMPAS, JACINTA D Primary Care Unavailable MILAGROS BROWN Attending Unavailable BLOCK, MICKI Referring Unavailable TALAMPAS, JACINTA D Primary Care Unavailable BLOCK, MICKI Referring Unavailable TALAMPAS, JACINTA D Primary Care Unavailable BLOCK, MICKI Referring Unavailable TALAMPAS, JACINTA D Primary Care Unavailable BLOCK, MICKI Referring Unavailable TALAMPAS, JACINTA D Primary Care Unavailable BLOCK, MICKI Referring Unavailable TALAMPAS, JACINTA D Primary Care Unavailable BLOCK, MICKI Referring Unavailable TALAMPAS, JACINTA D Primary Care Unavailable BLOCK, MICKI Referring Unavailable TALAMPAS, JACINTA D Primary Care Unavailable BLOCK, MICKI Referring Unavailable TALAMPAS, JACINTA D Primary Care Unavailable BLOCK, MICKI Referring Unavailable TALAMPAS, JACINTA D Primary Care Unavailable MILAGROS BROWN Attending Unavailable BLOCK, MICKI Referring Unavailable TALAMPAS, JACINTA D Primary Care Unavailable Demiter, Paulo Attending Unavailable Talampas, Jacinta D Referring Unavailable Talampas, Jacinta D Primary Care Unavailable Talampas, Jacinta D Referring Unavailable Talampas, Jacinta D Primary Care Unavailable Nata, Andrea Attending Unavailable Talampas, Jacinta D Primary Care Unavailable Hailey, Kathyent Referring Unavailable Ney Hart Attending Unavailable Talampas, Jacinta D Primary Care Unavailable Nata, Andrea Referring Unavailable Nata, Rector Attending Unavailable Rai Sterling Attending Unavailable Talampas, Jacinta D Primary Care Unavailable Demiter, Paulo Referring Unavailable Demiter, Paulo Attending Unavailable Talampas, Jacinta D Primary Care Unavailable TALAMPAS, JACINTA D Primary Care Unavailable MASCI, SERENA Referring Unavailable TALAMPAS, JACINTA D Primary Care Unavailable MASCI, SERENA Referring Unavailable TALAMPAS, JACINTA D Primary Care Unavailable TALAMPAS, JACINTA D Primary Care Unavailable SELF Referring Unavailable LISBET PZIANO Attending Unavailable MASCI, SERENA Referring Unavailable TALAMPAS, JACINTA D Primary Care Unavailable TALAMPAS, JACINTA D Primary Care Unavailable TALAMPAS, JACINTA D Primary Care Unavailable SELF Referring Unavailable KISHA, MINO L Attending Unavailable TALAMPAS, JACINTA D Primary Care Unavailable BURR, CATHY Attending Unavailable BURR, CATHY Referring Unavailable TALAMPAS, JACINTA D Primary Care Unavailable ELIZ BINGHAM Referring Unavailable TALAMPAS, JACINTA D Primary Care Unavailable TALAMPAS, JACINTA D Primary Care Unavailable BLOCK, MICKI Attending Unavailable TALAMPAS, JACINTA D Primary Care Unavailable KISHA, MINO L Attending Unavailable TALAMPAS, JACINTA D Primary Care Unavailable BURR, CATHY Attending Unavailable TALAMPAS, JACINTA D Primary Care Unavailable TALAMPAS, JACINTA D Primary Care Unavailable MARCELINO, MICKI Attending Unavailable TALAMPAS, JACINTA D Primary Care Unavailable TALAMPAS, JACINTA D Primary Care Unavailable TALAMPAS, JACINTA D Primary Care Unavailable BEARD, MINO L Attending Unavailable TALAMPAS, JACINTA D Primary Care Unavailable BLOCK, MICKI Attending Unavailable TALAMPAS, JACINTA D Primary Care Unavailable MARCELINO, MICKI Attending Unavailable TALAMPAS, JACINTA D Primary Care Unavailable MASCI, SERENA Referring Unavailable MASCI, SERENA Attending Unavailable TALAMPAS, JACINTA D Primary Care Unavailable TALAMPAS, JACINTA D Primary Care Unavailable BEARD, MINO L Attending Unavailable DAISY TITUS Attending Unavailable TALAMPAS, JACINTA D Referring Unavailable TALAMPAS, JACINTA D Primary Care Unavailable LISBET PIZANO Attending Unavailable TALAMPAS, JACINTA D Primary Care Unavailable TALAMPAS, JACINTA D Primary Care Unavailable BURR, CATHY Attending Unavailable TALAMPAS, JACINTA D Primary Care Unavailable BURR, CATHY Attending Unavailable TALAMPAS, JACINTA D Primary Care Unavailable TALAMPAS, JACINTA D Primary Care Unavailable LEMON, BOBBI Attending Unavailable MASCI SERENA Referring Unavailable TALAMPAS, JACINTA D Primary Care Unavailable LEMON, BOBBI Attending Unavailable MASCI, SERENA Referring Unavailable TALAMPAS, JACINTA D Primary Care Unavailable MARCELINOMICKI DONG Admitting Unavailable MARCELINO, MICKI Attending Unavailable TALAMPAS, JACINTA D Primary Care Unavailable BURR, CATHY Referring Unavailable TALAMPAS, JACINTA D Primary Care Unavailable MINO BEARD Attending Unavailable TALAMPAS, JACINTA D Primary Care Unavailable TALAMPAS, JACINAT D Primary Care Unavailable SERENA CARRASCO Attending Unavailable DAISY TITUS Attending Unavailable TALAMPAS, JACINTA D Primary Care Unavailable BARBNEL Referring Unavailable TALAMPAS, JACINTA D Primary Care Unavailable BARBNEL M Attending Unavailable TALAMPAS, JACINTA D Primary Care Unavailable TALAMPAS, JACINTA D Primary Care Unavailable FERMINNINGELIZ Attending Unavailable FERMINNING ELIZ A Referring Unavailable TALAMPAS, JACINTA D Primary Care Unavailable MINO BEARD Attending Unavailable TALAMPAS, JACINTA D Primary Care Unavailable TALAMPAS, JACINTA D Primary Care Unavailable MASCI SERENA Referring Unavailable TALAMPAS, JACINTA D Primary Care Unavailable TALAMPAS, JACINTA D Primary Care Unavailable BURR, CATHY Referring Unavailable BURR, CATHY Attending Unavailable TALAMPAS, JACINTA D Primary Care Unavailable MASCI SERENA Attending Unavailable TALAMPAS, JACINTA D Primary Care Unavailable MASCI, SERENA Referring Unavailable TALAMPAS, JACINTA D Primary Care Unavailable FANNING, ELIZ A Attending Unavailable TALAMPAS, JACINTA D Primary Care Unavailable BURR, CATHY Referring Unavailable TALAMPAS, JACINTA D Primary Care Unavailable MASCI, SERENA Referring Unavailable TALAMPAS, JACINTA D Primary Care Unavailable CARLA FORBES Referring Unavailable TALAMPAS, JACINTA D Primary Care Unavailable LEMBOBBI BATEMAN Attending Unavailable TALAMPAS, JACINTA D Primary Care Unavailable SERENA CARRASCO Referring Unavailable TALAMPAS, JACINTA D Primary Care Unavailable EDSONISERENA Referring Unavailable TALAMPAS, JACINTA D Attending Unavailable TALAMPAS, JACINTA D Primary Care Unavailable DAISY TITUS Attending Unavailable SERENA CARRASCO Referring Unavailable TALAMPAS, JACINTA D Primary Care Unavailable SUBHASH AVILA Attending Unavailable TALAMPAS, JACINTA D Primary Care Unavailable TALAMPAS, JACINTA D Primary Care Unavailable TALAMPAS, JACINTA D Primary Care Unavailable MICKI MARCELINO Referring Unavailable CATHY BURR Referring Unavailable TALAMPAS, JACINTA D Primary Care Unavailable MICKI MARCELINO Attending Unavailable TALAMPAS, JACINTA D Primary Care Unavailable TALAMPAS, JACINTA D Primary Care Unavailable TALAMPAS, JACINTA D Primary Care Unavailable TALAMPAS, JACINTA D Primary Care Unavailable TALAMPAS, JACINTA D Primary Care Unavailable SERENA CARRASCO Referring Unavailable SERENA CARRASCO Attending Unavailable Allergies Allergy Classification Reported Allergen(s) Allergy Type Date of Onset Reaction(s) Facility Penicillins (antibiotic) (2 sources) Amoxicillin Drug Allergy 11-15-2022 [facility] (20 sources) Amoxicillin; Translations: [AMOXICILLIN] Drug Allergy 11-15-2022 [facility] Work Phone: Medications Current Medications Medication Drug Class(es) Dates Sig (Normalized) Sig (Original) acetaminophen 500 mg / diphenhydrAMINE hydrochloride 25 mg oral tablet (20 sources) Histamine-1 Receptor Antagonist take 1 tablet by mouth every twenty-four hours as needed diphenhydrAMINE -Acetaminophen (TYLENOL PM EXTRA STRENGTH) 25-500 mg tab Take 1 tablet by mouth at bedtime as needed. Active acetaminophen 325 mg / oxyCODONE hydrochloride 5 mg oral tablet (7 sources) Opioid Agonist Start: 05-14-2024 End: 05-21-2024 take 1 tablet by mouth every six hours as needed for pain oxyCODONE-aceta minophen (PERCOCET) 5-325 mg tablet Indications: Post-op pain Take 1 tablet by mouth every 6 hours as needed for pain for up to 7 days. 28 tablet 05/14/2024 05/21/2024 Active amLODIPine 5 mg oral tablet (20 sources) Dihydropyridine Calcium Channel Anahy Start: 07-02-2024 take 1 tablet by mouth once daily Amlodipine 5 mg tablet Active 5 mg PO daily 90 3 July 02, 2024 12:00am Start: 05-12-2024 End: 05-12-2025 take 1 tablet by mouth once daily Amlodipine 2.5 mg tablet Discontinued 2.5 mg PO DAILY May 21, 2024 1:00am July 02, 2024 11:11am ascorbic acid 100 mg oral tablet (20 sources) Vitamin C Start: 03-29-2017 take 5 tablets by mouth once daily Ascorbic Acid (Vitamin C) 100 mg tablet Active 500 mg PO daily March 29, 2017 1:00am Start: 09-09-2009 take 1 tablet by severo th once daily VITAMIN C, 100MG (Oral Tablet Chewable) 1 (one) Tablet Chewable Daily for 0 days Quantity: 90 {Tablet_Chewable} Refills: 0 Ordered: 09-Sep-2009 Tasia Phillips RN Start : 09-Sep-2009 Active take 1 tablet by severo th once daily ascorbic acid, vitamin C, (VITAMIN C) 500 mg tablet Take 500 mg by mouth once daily. Active Comment on above: Take 500 mg by mouth once daily. azithromycin 250 mg oral tablet (9 sources) Macrolide Antimicrobial Start: 05-07-19 End: 05-12-19 take 2 tablets by mouth once daily, then take 1 tablet by mouth once daily azithromycin (ZITHROMAX) 250 mg tablet Indications: Sore throat Take 2 tablets by mouth once daily for 1 day, THEN 1 tablet once daily for 4 days. 6 tablet 05/07/2024 05/12/2024 Active Start: 11-12-2022 End: 11-18-2022 azithromycin (ZITHROMAX) 250 mg tablet take 2 tablets by mouth immediately then take 1 tablet by mouth once daily for 4 days 0 11/12/2022 11/18/2022 Active Start: 12-29-2020 End: 01-03-2021 take 2 tablets by mouth once daily, then take 1 tablet by mouth once daily azithromycin (ZITHROMAX) 250 mg tablet Indications: Acute sinusitis, recurrence not specified, unspecified location Take 2 tablets by mouth once daily for 1 day, THEN 1 tablet once daily for 4 days. 6 tablet 12/29/2020 01/03/2021 Start: 07-28-2015 End: 02-11-2017 take 1 tablet by mouth once daily Azithromycin 500 MG Oral Tablet 1 (one) Tablet qd for 0 days Quantity: 10 {Tablet} Refills: 0 Ordered: 11-Feb-2017 Chandler Emily PACHECO Start : 28-Jul-2015 End : 11-Feb-2017 Inactive Comment on above: take 2 tablets by mo uth immediately then take 1 tablet by mouth once daily for 4 days Blood-Glucose Meter monitoring kit (1 source) Start: 4 End: 4 Blood-Glucose Meter monitoring kit Glucose Meter of Choice - Kit - Dx: Type 2 DM - Uncontrolled E11.65 1 Each 0 11/13/2023 11/14/2023 Active calcium carbonate 1250 mg oral tablet (20 sources) Start: 4 take 1 tablet by mouth once daily Calcium Carbonate 500 mg calcium (1,250 mg) tablet Active 1000 mg PO DAILY October 09, 2023 12:00am Start: 03-29-2017 End: 09-03-2023 take 1 tablet by mouth once daily Calcium Carbonate (Calcium 600) 600 mg calcium (1,500 mg) tablet Discontinued 600 mg PO daily March 29, 2017 1:00am September 03, 2023 10:05am take 1 tablet by severo th once daily CALCIUM CARBONATE (CALCIUM 500 ORAL) Take 1 tablet by mouth once daily. Suspended take 1 tablet by severo th once daily CALCIUM CARBONATE (CALCIUM 500 ORAL) Take 1 tablet by mouth once daily. Active take 1 tablet by severo th once daily CALCIUM CARBONATE (CALCIUM 500 ORAL) Take 1 tablet by mouth once daily. 0 Active Comment on above: Take 1 tablet by severo th once daily. cefadroxil 500 mg oral capsule (7 sources) Cephalosporin Antibacterial Start: 5 End: 5 take 1 capsule by mouth twice daily cefADROxil (DURICEF) 500 mg capsule Take 1 capsule by mouth two times a day for 10 days. 20 capsule 05/14/2024 05/24/2024 Active cefuroxime 500 mg oral tablet (5 sources) Cephalosporin Antibacterial Start: 5 End: 5 take 1 tablet by mouth twice daily cefUROXime (CEFTIN) 500 mg tablet Take 1 tablet by mouth two times a day for 10 days. 20 tablet 09/25/2024 10/05/2024 Active Start: 07-28-2015 End: 02-11-2017 take 1 tablet by mouth twice daily Ceftin 500 MG Oral Tablet 1 (one) Tablet bid for 0 days Quantity: 20 {Tablet} Refills: 0 Ordered: 11-Feb-2017 Chandler Emily PACHECO Start : 28-Jul-2015 End : 11-Feb-2017 Inactive doxycycline monohydrate 100 mg oral capsule (10 sources) Tetracycline-class Drug Start: 10-13-2024 End: 10-23-2024 take 1 capsule by mouth twice daily doxycycline monohydrate (MONODOX) 100 mg capsule Indications: Urinary tract infection with hematuria, site unspecified Take 1 capsule by mouth two times a day for 10 days. 20 capsule 10/13/2024 10/23/2024 Active Start: 07-06-2024 End: 07-11-2024 take 1 capsule by mouth twice daily doxycycline hyclate (VIBRAMYCIN) 100 mg capsule Take 1 capsule by mouth two times a day for 5 days. 10 capsule 07/06/2024 07/11/2024 Active ergocalciferol 1.25 mg oral capsule (20 sources) Provitamin D2 Compound Start: 09-03-2023 Ergocalciferol (May min D2) (Vitamin D2) 1,250 mcg (50,000 unit) capsule Active 33682 U PO EVERY WEEK September 03, 2023 10:04am Start: 10-20-2018 take 1 capsule by [facility] two times weekly Ergocalciferol 72620 UNIT Oral Capsule 1 (one) Capsule twice weekly for 0 days Quantity: 24 {Capsule} Refills: 1 Ordered: 20-Oct-2018 Mindi Dasilva DO, DO, Kathleen Start : 20-Oct-2018 Active Start: 07-11-2018 take 1 capsule by mo ut two times weekly Ergocalciferol 02855 UNIT Oral Capsule 1 (one) Capsule twice weekly for 0 days Quantity: 24 {Capsule} Refills: 0 Ordered: 11-Jul-2018 Mindi Dasilva DO, DO, Kathleen Start : 11-Jul-2018 Active Start: 04-21-2018 take 1 capsule by mo ut two times weekly Ergocalciferol 37083 UNIT Oral Capsule 1 (one) Capsule twice weekly for 0 days Quantity: 24 {Capsule} Refills: 0 Ordered: 21-Apr-2018 Brown COMBS Mindi Dhillon DO Start : 21-Apr-2018 Active Start: 04-23-2017 End: 09-03-2023 Ergocalciferol (Vitamin D2) (Vitamin D2) 50,000 UNIT capsule Discontinued 1.25 mg PO TUSA April 23, 2017 1:00am September 03, 2023 10:06am Start: 03-25-2017 take 1 capsule by [facility] every week VITAMIN D 50,000 unit capsule Take 1 capsule by mouth one time a week. 03/25/2017 Active Comment on above: 1 capsule one time a week. 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 90 tablet 3 05/21/2024 Active Comment on above: Take 1 tablet by [facility] once daily. TAKE AFTER A MEAL. hydroCHLOROthiazide 12.5 mg oral tablet (20 sources) Thiazide Diuretic Start : 11-02 take 1 tablet by mouth once daily Hydrochlorothiazide 12.5 mg tablet Active 12.5 mg PO daily November 02, 2024 12:00am Start: 10-30-2024 take 1 capsule by [facility] once daily hydroCHLOROthiazide 12.5 mg capsule Take 1 capsule by mouth once daily. 90 capsule 3 10/30/2024 Active Start: 07-02-2024 End: 11-02-2024 take 1 tablet by mouth once daily in the morning Hydrochlorothiazide 25 mg tablet Discontinued 25 mg PO EVERY MORNING 60 3 July 02, 2024 12:00am November 02, 2024 11:15am On Hold: Fatigue End: 10-30-2024 hydroCHLOROthiazide 25 mg ta blet Take 12.5 mg by mouth once daily. 10/30/2024 Discontinued 3 ml insulin glargine 100 unt/ml pen injector (20 sources) Insulin Analog Start: 09-08-2024 insulin glargi ne (LANTUS SOLOSTAR U-100 INSULIN) 100 unit/mL (3 mL) Inject 30 Units subcutaneously every morning. 15 mL 5 09/08/2024 Active Start: 08-11-2024 End: 09-08-2024 insulin glargine (LANTUS ALFREDA OSTAR U-100 INSULIN) 100 unit/mL (3 mL) Inject 26 Units subcutaneously every morning. 08/11/2024 09/08/2024 Discontinued Start: 07-14-2024 End: 08-11-2024 insulin glargine (LANTUS ALFREDA OSTAR U-100 INSULIN) 100 unit/mL (3 mL) Inject 24 Units subcutaneously every morning. 15 mL 1 07/14/2024 08/11/2024 Discontinued (Adjust Sig - Block E-Cancel) Start: 07-02-2024 Insulin Glargi ne (Lantus Solostar U-100 Insulin) 100 unit/mL (3 mL) insulin pen Active 20 U SC EVERY MORNING July 02, 2024 12:00am Start: 05-05-2024 End: 07-14-2024 insulin glargine (LANTUS ALFREDA OSTAR U-100 INSULIN) 100 unit/mL (3 mL) Inject 20 Units subcutaneously every morning. 05/05/2024 07/14/2024 Discontinued Start: 04-15-2024 End: 05-05-2024 insulin glargine (LANTUS ALFREDA OSTAR U-100 INSULIN) 100 unit/mL (3 mL) Inject 18 Units subcutaneously every morning. 15 mL 2 04/15/2024 05/05/2024 Discontinued (Adjust Sig - Block E-Cancel) Start: 02-05-2024 End: 04-15-2024 insulin glargine (LANTUS ALFREDA OSTAR U-100 INSULIN) 100 unit/mL (3 mL) Inject 12 Units subcutaneously every morning. 15 mL 2 02/25/2024 04/15/2024 Discontinued iv contrast (will be provide d with radiology test) (4 sources) Start: 01-06-2024 End: 01-07-2024 iv contrast (will be provide d with radiology test) MRI Breast DEYVI Inject, intravenously, once for 1 dose. No IV access, insert saline lock prior to the beginning of sedation, infusion, injection of imaging exam. Discontinue saline lock post exam. If Pt has a central line or IVAD, may access for administration according to line specific nursing protocol. Once exam is complete flush line and de-access according to line specific nursing protocol in the MR contrast administration guidelines link 1 Each 01/06/2024 01/07/2024 Active Start: 08-01-2022 End: 08-02-2022 iv contrast (will be provide d with radiology test) MRI Breast DEYVI Inject, intravenously, once for 1 dose. No IV access, insert saline lock prior to the beginning of sedation, infusion, injection of imaging exam. Discontinue saline lock post exam. If Pt has a central line or IVAD, may access for administration according to line specific nursing protocol. Once exam is complete flush line and de-access according to line specific nursing protocol in the MR contrast administration guidelines link 1 Each 0 08/01/2022 08/02/2022 Start: 08-01-2022 End: 08-02-2022 iv contrast (will be provide d with radiology test) MRI Breast DEYVI Inject, intravenously, once for 1 dose. No IV access, insert saline lock prior to the beginning of sedation, infusion, injection of imaging exam. Discontinue saline lock post exam. If Pt has a central line or IVAD, may access for administration according to line specific nursing protocol. Once exam is complete flush line and de-access according to line specific nursing protocol in the MR contrast administration guidelines link 1 Each 0 08/01/2022 08/02/2022 Active Comment on above: MRI Breast DEYVI Injec t, intravenously, once for 1 dose. No IV access, insert saline lock prior to the beginning of sedation, infusion, injection of imaging exam. Discontinue saline lock post exam. If Pt has a central line or IVAD, may access for administration according to line specific nursing protocol. 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 90 tablet 12/12/2023 01/11/2024 Active Start: 11-06-2023 End: 12-06-2023 take 1 tablet by mouth three times daily as needed LORazepam (ATIVAN) 0.5 mg Indications: 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) , Malignant neoplasm of left breast in female, estrogen receptor positive, unspecified site of breast (HCC) , 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 lymph node (HCC) Take 1 tablet by mouth three times a day as needed for up to 30 days. 90 tablet 11/06/2023 12/06/2023 Active Start: 07-05-2023 End: 10-11-2023 take 1 tablet by mouth three times daily as needed LORazepam (ATIVAN) 0.5 mg Indications: 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) , Malignant neoplasm of left breast in female, estrogen receptor positive, unspecified site of breast (HCC) , 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 lymph node (HCC) Take 1 tablet by mouth three times a day as needed for up to 30 days. 90 tablet 0 09/11/2023 10/11/2023 Active Start: 05-24-2023 End: 06-23-2023 take 1 tablet by mouth three times daily as needed LORazepam (ATIVAN) 0.5 mg Indications: Malignant neoplasm of left breast in female, estrogen receptor positive, unspecified site of breast (HCC) , 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) , 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 lymph node (HCC) Take 1 tablet by mouth three times a day as needed for up to 30 days. 90 tablet 0 05/24/2023 06/23/2023 Active Start: 04-11-2023 End: 05-11-2023 take 1 tablet by mouth three times daily as needed LORazepam (ATIVAN) 0.5 mg Indications: Malignant neoplasm of left breast in female, estrogen receptor positive, unspecified site of breast (HCC) (HCC) , 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) , 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 lymph node (HCC) Take 1 tablet by mouth three times a day as needed for up to 30 days. 90 tablet 0 04/11/2023 05/11/2023 Start: 03-07-2007 End: 09-04-2007 take 1 tablet by mouth once daily as needed ATIVAN, 0.5MG (Oral Tablet) 1 (one) Tablet Daily prn for 0 days Quantity: 3 {Tablet} Refills: 0 Ordered: 07-Mar-2007 Emily Arteaga LPN Start : 07-Mar-2007 End : 04-Sep-2007 Inactive Comment on above: Take 1 tablet by severo th three times a day as needed for up to 30 days. losartan potassium 25 mg oral tablet (20 sources) Angiotensin 2 Receptor Anahy Start: 11-02-2024 take 1 tablet by mouth once daily Losartan 25 mg tablet Active 25 mg PO DAILY 30 November 02, 2024 11:47am Start: 11-02-2024 End: 11-02-2024 take 1 tablet by mouth once daily Losartan 50 mg tablet Discontinued 50 mg PO DAILY November 02, 2024 11:13am November 02, 2024 11:47am Start: 10-30-2024 End: 10-30-2025 take 0.5 tablet by mouth once losartan (COZAAR) 100 mg tablet Take 0.5 tablets by mouth every afternoon. 45 tablet 3 10/30/2024 10/30/2025 Active Start: 07-02-2024 End: 11-02-2024 take 2 tablets by mouth once daily Losartan 50 mg tablet Discontinued 100 mg PO DAILY July 02, 2024 11:13am November 02, 2024 11:16am Start: 05-07-2024 End: 05-07-2025 take 1 tablet by mouth once losartan (COZAAR) 100 mg t ablet Take 1 tablet by mouth every afternoon. 90 tablet 3 05/07/2024 10/30/2024 Discontinued Start: 10-09-2023 End: 07-02-2024 take 1 tablet by mouth once losartan (COZAAR) 50 mg ta blet Take 1 tablet by mouth every afternoon. 01/01/2024 05/07/2024 Discontinued Start: 04-11-2023 End: 05-07-2024 take 1 tablet by mouth once daily Losartan 25 mg tablet Discontinued 25 mg PO DAILY September 03, 2023 12:00am October 09, 2023 10:48am Comment on above: Take 1 tablet by severo th once daily. meloxicam 15 mg oral tablet (20 sources) Nonsteroidal Anti-inflammatory Drug Start: 02-22-2023 End: 04-23-2023 take 1 tablet by mouth once daily meloxicam (MOBIC) 15 mg tablet Indications: Arthritis of midfoot Take 1 tablet by mouth once daily. 30 tablet 1 02/22/2023 04/23/2023 Active Start: 01-25-2022 End: 05-07-2022 take 1 tablet by mouth once daily meloxicam (MOBIC) 15 mg tablet take 1 tablet by mouth once daily 30 tablet 1 04/07/2022 05/07/2022 Active Comment on above: Take 15 mg by mouth once daily as needed. Take 1 tablet by severo th once daily. take 1 tablet by seevro th once daily methylPREDNISolone (1 source) Corticosteroid Start : 05-08 End: 05-14 methylPREDNISolone (MEDROL, ALEXEI,) 4 mg Dose-Pack Indications: Acute effusion of right ear Follow dosing instructions, take with food. 21 tablet 0 05/08/2023 05/14/2023 Active Comment on above: Follow dosing instru ctions, take with food. 24 hr metoprolol succinate 25 mg extended release oral tablet (20 sources) beta-Adrenergic Anahy Start : 06-05 End: 06-26 take 1 tablet by mouth once daily metoprolol succinate ER (TOPROL XL) 25 mg 24 hr tablet take 1 tablet by mouth once daily 90 tablet 3 06/26/2024 Active nitrofurantoin, macrocrystals 25 mg / nitrofurantoin, monohydrate 75 mg oral capsule (5 sources) Nitrofuran Antibacterial Start : 09-10 End: 09-17 take 1 capsule by mouth twice daily at mealtime nitrofurantoin monohydrate and macrocrystal (MACROBID) 100 mg capsule Take 1 capsule by mouth two times a day with meals for 7 days. 14 capsule 09/10/2024 09/17/2024 Active Start: 02-05-2022 End: 02-10-2022 take 1 capsule by mouth twice daily nitrofurantoin monohydrate and macrocrystal (MACROBID) 100 mg capsule Take 1 capsule by mouth twice daily for 5 days. 10 capsule 0 02/05/2022 02/07/2022 Discontinued (Clinical Decision) Comment on above: Take 1 capsule by [facility] twice daily for 5 days. ONETOUCH ULTRA PLUS TEST strp (20 sources) Start: 10-30-2023 ONETOUCH ULTRA PLUS TEST strp 1 Each two times a day. E11.65; No insulin 200 Each 3 10/30/2023 Suspended Start: 10-30-2023 ONETOUCH ULTRA PLUS TEST strp 1 Each two times a day. E11.65; No insulin 200 Each 3 10/30/2023 Active Start: 09-05-2023 End: 10-30-2023 ONETOUCH ULTRA PLUS TEST str p 1 Each two times a day. E11.65; No insulin 200 Each 3 09/05/2023 10/30/2023 Discontinued Start: 09-05-2023 ONETOUCH ULTRA PLUS TEST strp 1 Each two times a day. E11.65; No insulin 200 Each 3 09/05/2023 Active Start: 07-19-2023 End: 09-05-2023 ONETOUCH ULTRA PLUS TEST str p 1 Each two times a day. And as needed for symptoms of sugars too high or too low. Diagnosis: E11.65, Insulin: No 200 Each 3 07/19/2023 09/05/2023 Discontinued Start: 07-19-2023 ONETOUCH ULTRA PLUS TEST strp 1 Each two times a day. And as needed for symptoms of sugars too high or too low. Diagnosis: E11.65, Insulin: No 200 Each 3 07/19/2023 Active Comment on above: 1 Each two times a d ay. And as needed for symptoms of sugars too high or too low. Diagnosis: E11.65, Insulin: No pantoprazole 40 mg delayed release oral tablet (20 sources) Proton Pump Inhibitor Start: 2021 take 1 tablet by mouth once daily before breakfast pantoprazole DR (PROTONIX) 40 mg tablet Take 40 mg by mouth daily before breakfast. 01/01/2022 Active Comment on above: Take 40 mg by mouth daily before breakfast. semaglutide (OZEMPIC) 0.25 mg or 0.5 mg (2 mg/3 mL) pen (14 sources) Start: 2023 End: 2023 inject 0.25 mg by subcutaneous injection every week, then inject 0.5 mg by subcutaneous injection every week semaglutide (OZEMPIC) 0.25 mg or 0.5 mg (2 mg/3 mL) pen Inject 0.25 mg subcutaneously one time a week for 28 days, THEN 0.5 mg one time a week. 3 mL 1 08/13/2023 10/22/2023 Active sodium fluoride 2 mg/ml mouthwash (20 sources) Sodium Fluoride, Dental Rinse, 0.2 % SWISH 10 ML BY MOUTH THEN SPIT ONCE WEEKLY Active sulfamethoxazole 800 mg / trimethoprim 160 mg oral tablet (5 sources) Dihydrofolate Reductase Inhibitor Antibacterial, Sulfonamide Antimicrobial Start: 2023 End: 2023 take 1 tablet by mouth twice daily sulfamethoxazole-tri methoprim (BACTRIM DS) 800-160 mg per tablet Indications: Acute cystitis with hematuria Take 1 tablet by mouth two times a day for 7 days. 14 tablet 0 10/23/2023 10/30/2023 Active Start: 09-20-2022 End: 09-23-2022 take 1 tablet by mouth twice daily sulfamethoxazole-trimethoprim (BACTRIM D S) 800-160 mg per tablet Take 1 tablet by mouth twice daily for 3 days. 6 tablet 0 09/20/2022 09/23/2022 Active Comment on above: Take 1 tablet by severo th twice daily for 3 days. tirzepatide (MOUNJARO) 2.5 mg/0.5 mL pen injector (4 sources) Start: 025 inject 2.5 mg by subcutaneous injection every week tirzepatide (MOUNJARO) 2.5 mg/0.5 mL pen injector Indications: Diabetes mellitus treated with injections of non-insulin medication (HCC) Inject 2.5 mg subcutaneously one time a week. 4 each 5 11/05/2024 Active traZODone hydrochloride 50 mg oral tablet (20 sources) Serotonin Reuptake Inhibitor Start: 025 take 1 tablet by mouth once daily at bedtime traZODone (DESYREL) 50 mg tablet Take 1 tablet by mouth daily at bedtime. 90 tablet 3 07/09/2024 Active Start: 07-04-2022 End: 07-04-2023 take 1 tablet by mouth once daily at bedtime traZODone (DESYREL) 50 mg tablet Indications: Insomnia, unspecified type Take 1 tablet by mouth daily at bedtime. 90 tablet 3 07/04/2022 07/04/2023 Active Start: 02-12-2020 End: 05-29-2022 take 1 tablet by mouth once daily at bedtime traZODone (DESYREL) 50 mg tablet Indications: Insomnia, unspecified type Take 1 tablet by mouth daily at bedtime. 90 tablet 3 05/29/2021 05/29/2022 Active Start: 06-06-2017 take 0.5 tablet by m outh once daily at bedtime TraZODone HCl 50 MG Oral Tablet 1/2 Tablet qhs / HS for 0 days Quantity: 30 {Tablet} Refills: 3 Ordered: 06-Jun-2017 Mindi Dasilva DO, DO, Kathleen Start : 06-Jun-2017 Active Start: 06-07-2014 End: 09-03-2023 Trazodone 50 MG tablet Disco ntinued 25 mg PO AT BEDTIME as needed for Sleep June 07, 2014 1:00am September 03, 2023 10:05am Start: 06-07-2014 take 25 mg by mouth at bedtime Trazodone Active 25 MG PO AT BEDTIME June 07, 2014 1:00am Comment on above: Take 1 tablet by severo daily at bedtime. ursodiol 250 mg oral tablet (20 sources) Bile Acid Start: 03-14-2024 take 1 tablet by mouth twice daily ursodiol (LEENA) 250 mg tablet Take 250 mg by mouth two times a day. 03/14/2024 Active Start: 03-29-2017 End: 07-02-2024 take 1 tablet by mouth once daily Ursodiol (Leena Forte) 500 mg tablet Active 1250 mg PO daily 0 July 02, 2024 11:13am Start: 03-25-2017 End: 05-04-2024 take 1.5 tablets by mouth twice daily Ursodiol 500 mg tablet Take 1.5 tablets by mouth twice daily. 03/25/2017 05/04/2024 Discontinued (Duplicate Entry) take 3 tablets by mo ut once daily Lenea Forte 500 MG Oral Tablet 3 qd (500 MG) Active Comment on above: 1.5 tablets twice da anatoliy. Take 1.5 tablets by mouth twice daily. vitamin b12 1 mg oral capsule (20 sources) Vitamin B12 Start: 04-23-2017 take 1 capsule by mouth once daily Cyanocobalamin (Vitamin B-12) 1,000 MCG capsule Active 1000 ug PO DAILY April 23, 2017 1:00am cyanocobalamin ( VITAMIN B-12) 1,000 mcg tab Take 500 mcg by mouth once daily. Active take 1 tablet by mouth once merry y cyanocobalamin (VITAMIN B-12) 1,000 mcg tab Take 1,000 mcg by mouth once daily. 0 Active take 5 tablets by mouth once lew ly VITAMIN B12, 100MCG (Oral Tablet) 5 qd (100 MCG) Active Comment on above: Take 1,000 mcg by mo uth once daily. Take 500 mcg by mout h once daily. dl-alpha tocopheryl acetate 100 unt oral capsule (20 sources) Start: 03-29-2017 Vitamin E (Dl, Acetate) 100 unit capsule Active 400 U PO daily 0 March 29, 2017 1:00am Start: 03-29-2017 take 400 [IU[facility] by [facility] once daily Vitamin E (Dl, Acetate) Active 400 UNIT PO daily March 29, 2017 1:00am Start: 09-09-2009 take 1 capsule by [facility] once daily VITAMIN E, 100UNIT (Oral Capsule) 1 Capsule Daily for 0 days Quantity: 90 {Capsule} Refills: 0 Ordered: 09-Sep-2009 Tasia Phillips RN Start : 09-Sep-2009 Active take 1 capsule by [facility] once daily alpha tocopheryl acetate (VITAMIN E) 400 unit capsule Take 400 Units by mouth once daily. Active take 1 capsule by [facility] once daily alpha tocopheryl acetate (VITAMIN E) 400 unit capsule Take 400 Units by mouth once daily. 0 Active Comment on above: Take 400 Units by [facility] once daily. Completed/Discontinued Medications Medication Drug Class(es) Dates Sig (Normalized) Sig (Original) abemaciclib 150 mg oral tablet (20 sources) Start: 08-16-2022 End: 11-01-2022 take 1 tablet by mouth twice daily abemaciclib (VERZENIO) 150 mg tablet Indications: 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) Take 1 tablet (150 mg) by mouth twice daily. 60 tablet 5 08/17/2022 11/01/2022 Discontinued Comment on above: Take 1 tablet (150 m g) by mouth twice daily. acetaminophen 325 mg oral tablet (20 sources) Start: 11-09-2024 End: 11-09-2024 take 1 dose by mouth once, then take 4000 mg by mouth once daily 650 mg, ORAL, ONCE, 1 dose, On Sat11/09/24 at 0930, No more than 4000 mg of acetaminophen should be given per day (FROM ALL SOURCES) Start: 05-18-2024 End: 05-19-2024 1,000 mg, ORAL, NEEDED, 1 dose, Starting on Sat05/18/24 at 1250, Until Sat05/19/24 at 0303, Mild Pain (1-3) - Enteral Start: 05-18-2024 End: 05-18-2024 take 1 dose by mouth once 1,000 mg, ORAL, PRE-OP ONCE, 1 dose, On Sat05/18/24 at 1030, Preprocedure Start: 04-13-2024 End: 04-13-2024 take 1 dose by mouth once, then take 4000 mg by mouth once daily 650 mg, ORAL, ONCE, 1 dose, On Sat04/13/24 at 1530, No more than 4000 mg of acetaminophen should be given per day (FROM ALL SOURCES) Start: 03-22-2019 End: 08-13-2022 take 1 tablet by mouth every eight hours as needed acetaminophen (TYLENOL) 500 mg tablet Take 500 mg by mouth every 8 hours as needed for Pain. 03/22/2019 08/13/2022 Discontinued Comment on above: Take 500 mg by mouth every 8 hours as needed for Pain. acetaminophen 325 mg / HYDROcodone bitartrate 5 mg oral tablet (6 sources) Opioid Agonist Start: 04-24-2017 End: 09-03-2023 Hydrocodone-Acetaminophen 1 TABLET tablet Discontinued 1 {tbl} PO EVERY 6 HOURS NEEDED as needed for Pain 10 April 24, 2017 1:00am September 03, 2023 10:05am Postoperative pain Other acute postprocedural pain Start: 04-24-2017 take 1 tablet by severo th every six hours as needed Hydrocodone-Acetaminophen Active 1 TABLE T PO EVERY 6 HOURS NEEDED April 24, 2017 1:00am Start: 06-25-2014 End: 03-29-2017 Hydrocodone-Acetaminophen 1 TABLET tablet Discontinued 1 - 2 {tbl} PO EVERY 4 HOURS NEEDED as needed for Pain 12 June 25, 2014 12:00am March 29, 2017 3:41pm Start: 06-25-2014 End: 03-29-2017 take 1 tablet by mouth every four hours as needed Hydrocodone-Acetaminophen Discontinued 1 - 2 TABLET PO EVERY 4 HOURS NEEDED June 25, 2014 12:00am March 29, 2017 3:41pm ACTAVIS (4 sources) ACTAVIS 500mg bi d Active [id number] actuat albuterol 0.09 mg/actuat metered dose inhaler (20 sources) beta2-Adrenergic Agonist Start: 1 End: 2 take 2 puff(s) by inhalation every four hours as needed for wheezing albuterol HFA (VENTOLIN HFA) 90 mcg/actuation inhaler Indications: Bronchitis Inhale 2 Puffs as instructed every 4 hours as needed for wheezing/shortness of breath. 18 g 02/13/2021 02/19/2022 Discontinued Start: 04-21-2010 End: 10-10-2010 ALBUTEROL SULFATE, (2.5 MG/3 ML)0.083% (Inhalation Nebulization Solution) 1 Nebulized Soln q 6 hr prn for 0 days Quantity: 1 {Nebulized_Soln} Refills: 0 Ordered: 10-Oct-2010 Emily Arteaga LPN Start : 21-Apr-2010 End : 10-Oct-2010 Inactive Comments: dispense one box Start: 04-17-2010 End: 10-10-2010 VENTOLIN HFA, 108 (90 Base)M CG/ACT (Inhalation Aerosol Solution) 2 (two) Aerosol Soln Q 4hr/PRN for 0 days Quantity: 1 {Aerosol_Soln} Refills: 0 Ordered: 10-Oct-2010 Emily Arteaga LPN Start : 17-Apr-2010 End : 10-Oct-2010 Inactive Start: 09-09-2009 End: 09-09-2009 PROVENTIL HFA, 108 (90 Base) MCG/ACT (Inhalation Aerosol Solution) 2 (two) Aerosol Soln bid for 0 days Quantity: 1 {Aerosol_Soln} Refills: 0 Ordered: 09-Sep-2009 Mast Tasia MIRAMONTES Start : 09-Sep-2009 End : 09-Sep-2009 Discontinued Comment on above: dispense one box Inhale 2 Puffs as in structed every 4 hours as needed for wheezing/shortness of breath. amoxicillin 500 mg oral capsule (3 sources) Penicillin-class Antibacterial Start: 06-26-19 15 End: 03-29-20 17 take 1 capsule by mouth every twelve hours Amoxicillin 500 MG capsule Discontinued 500 mg PO Q12H 10 June 25, 2014 12:00am March 29, 2017 3:41pm anastrozole 1 mg oral tablet (20 sources) Aromatase Inhibitor Start: 08-12-19 21 End: 08-10-19 23 take 1 tablet by mouth once daily anastrozole (ARIMIDEX) 1 mg tablet take 1 tablet by mouth once daily 90 tablet 3 08/11/2020 05/15/2021 Discontinued Comment on above: Take 1 tablet by severo once daily. TAKE 1 TABLET DAILY aspirin 81 mg delayed release oral tablet (20 sources) Platelet Aggregation Inhibitor, Nonsteroidal Anti-inflammatory Drug Start: 10-09-19 18 End: 08-14-19 23 take 1 tablet by mouth once daily aspirin, enteric coated (ASPIRIN, ENTERIC COATED) 81 mg EC tablet Take 1 tablet by mouth once daily. 10/08/2017 08/13/2022 Discontinued Start: 04-04-2017 take 1 tablet by mouth once As pirin 81 mg tablet,chewable Active 81 mg PO ONCE April 04, 2017 1:00am End: 07-16-2014 take 1 tablet by mouth once daily ASPIRIN LOW DOSE, 81MG (Oral Tablet) 1 QD for 0 days Refills: 0 Ordered: 16-Jul-2014 Cayla Bingham LPN End : 16-Jul-2014 Discontinued Comment on above: Take 1 tablet by severo th once daily. Take 81 mg by mouth once daily. benzonatate 100 mg oral capsule (20 sources) Non-narcotic Antitussive Start: 04-28-19 End: 06-04-19 take 100-200 mg by mouth every eight hours as needed benzonatate (TESSALON PERLE) 100 mg capsule Take 1-2 capsules by mouth three times a day as needed for cough. 60 capsule 1 05/07/2024 06/04/2024 Discontinued black cohosh extract 40 mg oral capsule (2 sources) Start: 10-15-19 14 End: 03-19-20 14 take 1 capsule by mouth once daily BLACK COHOSH HOT FLASH RELIEF, 40MG (Oral Capsule) 1 (one) Capsule daily for 0 days Quantity: 30 {Capsule} Refills: 3 Ordered: 19-Mar-2014 Emily Arteaga LPN Start : 14-Oct-2013 End : 19-Mar-2014 Inactive BLACK COHOSH HOT FLASH RELIEF, 40MG (Oral Capsule) (2 sources) Start: 10-15-19 14 End: 03-19-20 14 take 1 capsule by mouth once daily BLACK COHOSH HOT FLASH RELIEF, 40MG (Oral Capsule) 1 (one) Capsule daily for 0 days Quantity: 30 {Capsule} Refills: 3 Ordered: 19-Mar-2014 Emily Arteaga LPN Start : 14-Oct-2013 End : 19-Mar-2014 Inactive Calcium (4 sources) Phosphate Binder, Calcium take 1 tablet by mouth once daily CALCIUM, 600MG (Oral Tablet) 1 qd for 0 days Refills: 0 Ordered: 11-Feb-2017 Emily Arteaga LPN Active calcium chloride 0.0014 meq/ml / potassium chloride 0.004 meq/ml / sodium chloride 0.103 meq/ml / sodium lactate 0.028 meq/ml injectable solution (2 sources) Start: 05-18-19 End: 05-19-19 take 75 mL intravenously every hour 75 mL/hr, INTRAVENOUS, CONTINUOUS, Starting on Sat05/18/24 at 1300, Until Sat05/19/24 at 0303 [id number] INC ORAL (20 sources) End: 11-04-19 24 take 1 tablet by mouth once daily [id number] INC ORAL Take 1 tablet by mouth once daily. 0 11/04/2023 Discontinued take 1 tablet by mouth once merry y [id number] ORAL Take 1 tablet by mouth once daily. 0 Active Comment on above: Take 1 tablet by [facility] once daily. CANNABIDIOL, CBD, EXTRACT ORAL (2 sources) End: 1 take 1 mL by mouth once daily CANNABIDIOL, CBD, EXTRACT ORAL Take 1 mL by mouth once daily. 02/15/2021 Discontinued celecoxib 200 mg oral capsule (4 sources) Nonsteroidal Anti-inflammatory Drug Start: 5 End: 5 take 1 capsule by mouth once daily CELECOXIB, 200MG (Oral Capsule) 1 (one) Capsule daily for 360 days Quantity: 360 {Capsule} Refills: 0 Ordered: 18-Oct-2014 Cayla Bingham LPN Start : 16-Jul-2014 End : 18-Oct-2014 Discontinued cephalexin 500 mg oral capsule (3 sources) Cephalosporin Antibacterial Start: 4 End: 4 take 1 capsule by mouth every twelve hours Cephalexin 500 mg capsule Discontinued 500 mg PO EVERY 12 HOURS 14 0 July 08, 2023 12:00am October 09, 2023 10:08am Start: 02-07-2022 End: 02-12-2022 take 1 capsule by mouth twice daily cephALEXin (KEFLEX) 500 mg capsule Take 1 capsule by mouth twice daily for 5 days. 10 capsule 0 02/07/2022 02/12/2022 Active Comment on above: Take 1 capsule by [facility] twice daily for 5 days. cetirizine hydrochloride 10 mg oral tablet (17 sources) Histamine-1 Receptor Antagonist Start: 025 End: take 1 tablet by mouth once daily for congestion cetirizine (ZYRTEC) 10 mg tablet Take 1 tablet by mouth once daily. for nasal congestion and drainage 30 tablet 05/07/2024 06/04/2024 Discontinued ciprofloxacin 500 mg oral tablet (11 sources) Quinolone Antimicrobial Start: 025 End: take 1 tablet by mouth twice daily ciprofloxacin HCl (CIPRO) 500 mg tablet Indications: Complicated UTI (urinary tract infection) Take 1 tablet by mouth two times a day for 10 days. 20 tablet 09/07/2024 09/10/2024 Discontinued (Clinical Decision) Start: 11-04-2023 End: 11-14-2023 take 1 tablet by mouth twice daily ciprofloxacin HCl (CIPRO) 500 mg tablet Indications: Complicated UTI (urinary tract infection) Take 1 tablet by mouth two times a day for 10 days. 20 tablet 0 11/04/2023 11/14/2023 Active Start: 02-19-2022 End: 03-01-2022 take 1 tablet by mouth twice daily ciprofloxacin HCl (CIPRO) 500 mg tablet Indications: Acute cystitis without hematuria Take 1 tablet by mouth twice daily for 10 days. 20 tablet 0 02/19/2022 03/01/2022 Active Comment on above: Take 1 tablet by severo twice daily for 10 days. clarithromycin 500 mg oral tablet (8 sources) Macrolide Antimicrobial Start: 2 End: 2 take 1 tablet by mouth twice daily BIAXIN, 500MG (Oral Tablet) 1 Tablet bid for 0 days Quantity: 20 {Tablet} Refills: 0 Ordered: 29-Aug-2011 Emily Arteaga LPN Start : 01-Aug-2011 End : 29-Aug-2011 Inactive Start: 04-17-2010 End: 10-10-2010 take 2 tablets by mouth once daily BIAXIN XL, 500MG (Oral Tablet Extended Release 24 Hour) 2 (two) Tablet ER 24HR qd for 0 days Quantity: 1 {Tablet_ER_24HR} Refills: 0 Ordered: 10-Oct-2010 Emily Arteaga LPN Start : 17-Apr-2010 End : 10-Oct-2010 Inactive Comments: dispense one pack Comment on above: dispense one pack cyclobenzaprine hydrochloride 10 mg oral tablet (8 sources) Muscle Relaxant Start: End: take 1 tablet by mouth three times daily as needed for muscle spasms cyclobenzaprine (FLEXERIL) 10 mg tablet Indications: Neck strain, initial encounter Take 1 tablet by mouth three times a day as needed for muscle spasm for up to 12 doses. 12 tablet 0 10/18/2023 11/11/2023 Discontinued dexamethasone 0.1 mg/ml oral solution (16 sources) Corticosteroid Start: End: take 10 mL by mouth four times daily dexAMETHasone (DECADRON) 0.5 mg/5 mL oral liquid Indications: Malignant neoplasm of left breast in female, estrogen receptor positive, unspecified site of breast (HCC) Take 10 mL by mouth four times daily. (swish for 2 minutes and spit out) 560 mL 5 04/22/2023 07/18/2023 Discontinued Comment on above: Take 10 mL by mouth four times daily. (swish for 2 minutes and spit out) diclofenac 35 mg oral capsule (7 sources) Nonsteroidal Anti-inflammatory Drug Start: End: take 1 capsule by mouth twice daily Diclofenac Submicronized 35 MG capsule Discontinued 35 mg PO TWICE A DAY June 07, 2014 1:00am March 29, 2017 3:40pm Comment on above: Medication taken as needed. diphenhydrAMINE (1 source) Histamine-1 Receptor Antagonist Start: End: 12.5 mg, INTRAVENOUS, NEEDED, 1 dose, Starting on Sat05/18/24 at 1250, Until Sat05/19/24 at 0303, Nausea/Vomiting - Second Line - Parenteral diphenhydrAMINE-maalox -lidocaine (BMX 1:1:1) 1:1:1 liqd (20 sources) Start: End: take 5 mL by mouth every six hours as needed diphenhydrAMINE-maalo x-lidocaine (BMX 1:1:1) 1:1:1 liqd Indications: Stomatitis and mucositis Take 5 mL by mouth every 6 hours as needed. 140 mL 5 05/24/2023 07/05/2023 Start: 05-24-2023 End: 07-05-2023 take 5 mL by mouth every six hours as needed [id number]-jdufil-yngcyevxv (BMX 1: 1:1) 1:1:1 liqd Indications: Stomatitis and mucositis Take 5 mL by mouth every 6 hours as needed. 140 mL 5 05/24/2023 07/05/2023 Active Start: 05-24-2023 End: 05-24-2023 take 5 mL by mouth every six hours as needed [id number]-nbooko-xwakrdlcv (BMX 1: 1:1) 1:1:1 liqd Indications: Stomatitis and mucositis Take 5 mL by mouth every 6 hours as needed. 140 mL 5 05/24/2023 05/24/2023 Discontinued End: 11-04-2023 [id number] cynthia (BMX 1:1:1) 1:1:1 liqd Take by mouth every 4 hours as needed (mucositis). Magic mouthwash PRN 0 11/04/2023 Discontinued diphenhydrAMINE- maalox-lidocaine (BMX 1:1:1) 1:1:1 liqd Take by mouth every 4 hours as needed (mucositis). Magic mouthwash PRN 0 Active Comment on above: Take 5 mL by mouth e very 6 hours as needed. Take by mouth every 4 hours as needed (mucositis). Magic mouthwash PRN DULoxetine 30 mg delayed release oral capsule (20 sources) Serotonin and Norepinephrine Reuptake Inhibitor Start: 07-05-19 take 1 capsule by mouth once daily DULoxetine (CYMBALTA) 30 mg capsule take 1 capsule by mouth once daily 30 capsule 5 12/29/2022 Active Comment on above: Take 1 capsule by [facility] once daily. take 1 capsule by [facility] once daily 1 ml fentaNYL 0.05 mg/ml injection (1 source) Opioid Agonist Start: 05-18-19 End: 05-19-19 50 mcg, INTRAVENOUS, EVERY 5 MINUTES NEEDED, 2 doses, Starting on Sat05/18/24 at 1250, Until Sat05/19/24 at 0303, FIRST LINE THERAPY for moderate or severe pain, USE FOR MODERATE PAIN ONLY IF PATIENT IS UNABLE TO TOLERATE ORAL THERAPY 60 actuat formoterol fumarate 0.005 mg/actuat / mometasone furoate 0.2 mg/actuat metered dose inhaler (4 sources) Corticosteroid, beta2-Adrenergic Agonist Start: 07-11-19 End: 02-12-20 17 Dulera 200-5 MCG/ACT Inhalation Aerosol 1 (one) Aerosol Aerosol bid for 0 days Quantity: 1 {Inhaler} Refills: 0 Ordered: 11-Feb-2017 Emily Arteaga LPN Start : 11-Jul-2015 End : 11-Feb-2017 Inactive glipiZIDE er 10 mg 24 hr extended release oral tablet (20 sources) Sulfonylurea Start: 01-07-20 End: 02-25-20 take 1 tablet by mouth twice daily glipiZIDE (GLUCOTROL XL) 10mg 24 hr tablet Take 1 tablet by mouth two times a day. 180 tablet 1 01/07/2024 02/25/2024 Discontinued Start: 12-02-2023 End: 01-07-2024 take 2 tablets by mouth once daily at breakfast, then take 1 tablet by mouth once daily at dinner glipiZIDE (GLUCOTROL XL) 5 mg 24 hr tablet Take 2 tablets by mouth daily with breakfast AND 1 tablet daily with dinner. 90 tablet 2 12/30/2023 01/07/2024 Discontinued Start: 10-08-2023 End: 07-02-2024 take 1 tablet by mouth twice daily Glipizide 5 mg tablet extended release 24hr Discontinued 5 mg PO TWICE A DAY October 09, 2023 12:00am July 02, 2024 11:14am Start: 07-18-2023 End: 10-08-2023 take 1 tablet by mouth once daily glipiZIDE (GLUCOTROL XL) 5 mg 24 hr tablet Take 1 tablet by mouth once daily. 30 tablet 2 07/18/2023 10/08/2023 Discontinued Comment on above: Take 1 tablet by severo th once daily. glyBURIDE 2.5 mg oral tablet (5 sources) Sulfonylurea Start: End: take 1 tablet by mouth once daily Glyburide 2.5 mg tablet Discontinued 2.5 mg PO DAILY September 03, 2023 12:00am October 09, 2023 10:09am Start: 07-10-2023 End: 07-18-2023 take 1 tablet by mouth once daily at breakfast glyBURIDE 2.5 mg tablet Take 1 tablet by mouth daily with breakfast. 30 tablet 1 07/10/2023 07/18/2023 Discontinued Comment on above: Take 1 tablet by severo th daily with breakfast. hydroCHLOROthiazide 12.5 mg / lisinopril 20 mg oral tablet (20 sources) Thiazide Diuretic, Angiotensin Converting Enzyme Inhibitor Start: take 1 tablet by mouth once daily lisinopril-hyd roCHLOROthiazi de (ZESTORETIC) 20-12.5 mg per tablet Take 1 tablet by mouth once daily. 90 tablet 3 01/18/2023 Active Start: 03-29-2017 take 1 tablet by severo th once daily Lisinopril-Hydrochlorothiazide Active 1 TABLET PO daily March 29, 2017 1:00am Start: 12-05-2016 End: 09-03-2023 take 1 tablet by mouth once daily lisinopril-hydroCHLOROthiazide (PRINZIDE,ZESTORETIC) 20-12.5 mg per tablet take 1 tablet by mouth once daily 90 tablet 3 12/28/2020 05/15/2021 Discontinued Comment on above: Take 1 tablet by severo th once daily. TAKE 1 TABLET DAILY 0.5 ml HYDROmorphone hydrochloride 1 mg/ml prefilled syringe (1 source) Opioid Agonist Start: 05-18-19 End: 05-19-19 0.5 mg, INTRAVENOUS, NEEDED, 4 doses, Starting on Sat05/18/24 at 1250, Until Sat05/19/24 at 0303, SECOND LINE THERAPY for moderate or severe pain, USE FOR MODERATE PAIN ONLY IF PATIENT IS UNABLE TO TOLERATE ORAL THERAPY Caution: IV hydromorphone is approximately 8 times MORE POTENT than IV morphine. For example, hydromorphone 1mg IV = morphine 8mg IV ibuprofen 200 mg oral tablet (5 sources) Nonsteroidal Anti-inflammatory Drug End: 08-14-19 take 1 tablet by mouth every six hours as needed ibuprofen (MOTRIN) 200 mg tablet Take 200 mg by mouth every 6 hours as needed. 0 08/13/2022 Discontinued Comment on above: Take 200 mg by mouth every 6 hours as needed. Lactobacillus acidophilus (16 sources) End: 07-05-19 Lactobacillus acidophilus (PROBIOTIC ORAL) Take by mouth once daily. Super Now 0 07/04/2022 Discontinued Lactobacillus ac idophilus (PROBIOTIC ORAL) Take by mouth once daily. Super Now 0 Active Comment on above: Take by mouth once d aily. Super Now levoFLOXacin 500 mg oral tablet (4 sources) Quinolone Antimicrobial Start: 07-11-19 16 End: 07-18-19 16 take 1 tablet by mouth once daily LEVAQUIN, 500MG (Oral Tablet) 1 Tablet daily for 7 days Quantity: 7 {Tablet} Refills: 0 Ordered: 11-Jul-2015 Mindi Dasilva DO, DO, Kathleen Start : 11-Jul-2015 End : 18-Jul-2015 Inactive lisinopril 10 mg oral tablet (7 sources) Angiotensin Converting Enzyme Inhibitor Start: 10-15-19 End: 03-29-20 17 take 1 tablet by mouth once daily Lisinopril 10 MG tablet Discontinued 10 mg PO DAILY June 07, 2014 1:00am March 29, 2017 3:40pm magnesium oxide 400 mg oral tablet (20 sources) End: 07-18-19 take 1 tablet by mouth once daily magnesium oxide 400 mg magnesium tab Take 1 tablet by mouth once daily. 0 07/18/2023 Discontinued Comment on above: Take 1 tablet by severo once daily. melatonin 10 mg oral capsule (2 sources) End: 02-16-20 take 1 capsule by mouth once daily at bedtime melatonin 10 mg cap Take 10 mg by mouth daily at bedtime. 02/15/2021 Discontinued 1 ml meperidine hydrochloride 25 mg/ml cartridge (1 source) Opioid Agonist Start: 05-18-19 End: 05-19-19 12.5 mg, INTRAVENOUS, EVERY 10 MINUTES NEEDED, 2 doses, Starting on Sat05/18/24 at 1250, Until Sat05/19/24 at 0303, for shivering, May Repeat 12.5 mg in 10 minutes X1 for Continued Shivering metFORMIN hydrochloride 500 mg oral tablet (7 sources) Biguanide Start: 07-08-19 24 End: 07-18-19 24 take 1 tablet by mouth twice daily metFORMIN (GLUCOPHAGE) 500 mg tablet Take 500 mg by mouth two times a day. 0 07/08/2023 07/18/2023 Discontinued (Side Effects) Start: 07-08-2023 End: 09-03-2023 take 1 tablet by mouth twice daily Metformin 500 mg tablet extended release 24 hr Discontinued 500 mg PO TWICE A DAY 60 0 July 08, 2023 12:00am September 03, 2023 10:04am Comment on above: Take 500 mg by mouth two times a day. moxifloxacin 400 mg oral tablet (4 sources) Quinolone Antimicrobial Start: 9 End: 9 take 1 tablet by mouth once daily AVELOX, 400MG (Oral Tablet) 1 (one) Tablet Daily for 0 days Quantity: 10 {Tablet} Refills: 0 Ordered: 28-Jan-2009 MARCELO Morales Start : 28-Jan-2009 End : 18-Mar-2009 Inactive naproxen sodium 220 mg oral tablet (4 sources) Nonsteroidal Anti-inflammatory Drug Start: 2 End: 2 take 2 tablets by mouth twice daily at mealtime ALEVE, 220MG (Oral Tablet) 2 (two) Tablet bid with food for 10 days Refills: 0 Ordered: 08-Oct-2011 Mindi Dasilva DO, DO, Kathleen Start : 29-Aug-2011 End : 08-Sep-2011 Inactive 2 ml ondansetron 2 mg/ml injection (20 sources) Serotonin-3 Receptor Antagonist Start: 5 End: 5 4 mg, INTRAVENOUS, NEEDED, 1 dose, Starting on Sat05/18/24 at 1250, Until Sat05/19/24 at 0303, Nausea/Vomiting - First Line - Parenteral, Give IV push over 2 minutes Start: 09-03-2023 End: 10-09-2023 take 1 tablet by mouth three times daily as needed Ondansetron Hcl 8 mg tablet Discontinued 8 mg PO THREE TIMES A DAY as needed September 03, 2023 12:00am October 09, 2023 10:09am Start: 08-24-2022 End: 07-18-2023 take 1 tablet by mouth every eight hours as needed for nausea ondansetron (ZOFRAN) 8 mg tablet Indications: 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 FOR NAUSEA 30 tablet 2 08/24/2022 07/18/2023 Discontinued Comment on above: Take 1 tablet by severo every 8 hours as needed for nausea/vomiting (For chemotherapy induced nausea). FOR NAUSEA oxyCODONE hydrochloride 5 mg oral tablet (1 source) Opioid Agonist Start: 05-18-2024 End: 05-18-2024 5-10 mg, ORAL, NEEDED, 1 dose, Starting on 05/18/24 at 1250, Until Sat05/18/24 at 1404, Moderate Pain (4-6) - Enteral PARoxetine hydrochloride 10 mg oral tablet (20 sources) Serotonin Reuptake Inhibitor Start: 05-15-2021 End: 07-04-2022 PARoxetine (PAXIL) 10 mg tablet TAKE 1 TABLET DAILY 90 tablet 3 05/25/2022 07/04/2022 Discontinued Start: 08-31-2020 End: 02-27-2021 take 1 tablet by mouth once daily PARoxetine (PAXIL) 10 mg tablet Take 1 tablet by mouth once daily. 30 tablet 5 08/31/2020 02/27/2021 Discontinued Comment on above: Take 1 tablet by [facility] once daily. TAKE 1 TABLET DAILY microencapsulated potassium chloride 20 meq extended release oral tablet (11 sources) Start: End: take 1 tablet by mouth once daily Potassium Chloride 20 mEq tablet,ER particles/crystals Discontinued 20 meq PO DAILY September 03, 2023 12:00am October 09, 2023 10:09am Start: 07-05-2023 End: 08-04-2023 take 1 tablet by mouth twice daily, then take 1 tablet by mouth once daily potassium chloride ER (KLOR-CON) 20 mEq tablet Indications: Malignant neoplasm of lower-outer quadrant of left breast of female, estrogen receptor positive (HCC) , 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) Take 1 tablet by mouth two times a day for 10 days, THEN 1 tablet once daily for 20 days. 40 tablet 0 07/05/2023 08/04/2023 Comment on above: Take 1 tablet by severo two times a day for 10 days, THEN 1 tablet once daily for 20 days. predniSONE 20 mg oral tablet (4 sources) Start: 07-18-19 16 End: 07-24-19 take 1 tablet by mouth twice daily, then take 1 tablet by mouth once daily, then take 0.5 tablet by mouth once daily PREDNISONE, 20MG (Oral Tablet) tad Tablet uad for 6 days Refills: 0 Ordered: 18-Jul-2015 Mindi Dasilva DO, DO, Kathleen Start : 18-Jul-2015 End : 24-Jul-2015 Inactive Comments: 1 tab bid for 2 days then 1 tab qd for 2 days then 1/2 tab daily for 2 days Comment on above: 1 tab bid for 2 days then 1 tab qd for 2 days then 1/2 tab daily for 2 days promethazine hydrochloride 12.5 mg oral tablet (1 source) Phenothiazine Start: 05-18-19 End: 05-18-19 take 1 dose by mouth once 12.5 mg, ORAL, PRE-OP ONCE, 1 dose, On Sat05/18/24 at 1030, Preprocedure Start: 05-18-2024 End: 05-18-2024 take 1 dose by mouth once 12.5 mg, ORAL, PRE-OP ONCE, 1 dose, On Sat05/18/24 at 1030, Preprocedure ribociclib (20 sources) Start: 11-06-2022 take 3 tablets by [facility] once daily Ribociclib 600 mg/day (200 mg X 3) tablets (KISQALI) Indications: Malignant neoplasm of lower-outer quadrant of left breast of female, estrogen receptor positive (HCC) , 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) Take 3 tablets (600 mg) by mouth once daily. for 21 days. Then take a 7-day rest period to complete a 28-day treatment cycle. 63 tablet 5 11/06/2022 Active Start: 11-01-2022 End: 11-06-2022 take 3 tablets by mouth once daily Ribociclib 600 mg/day (200 mg X 3) tablets (KISQALI) Indications: Malignant neoplasm of lower-outer quadrant of left breast of female, estrogen receptor positive (HCC) , 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) Take 3 tablets (600 mg) by mouth once daily. for 21 days. Then take a 7-day rest period to complete a 28-day treatment cycle. 63 tablet 5 11/01/2022 11/06/2022 Discontinued Start: 11-01-2022 take 3 tablets by [facility] once daily Ribociclib 600 mg/day (200 mg X 3) tablets (KISQALI) Indications: Malignant neoplasm of lower-outer quadrant of left breast of female, estrogen receptor positive (HCC) , 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) Take 3 tablets (600 mg) by mouth once daily. for 21 days. Then take a 7-day rest period to complete a 28-day treatment cycle. 63 tablet 5 11/01/2022 Active Comment on above: Take 3 tablets (600 mg) by mouth once daily. for 21 days. Then take a 7-day rest period to complete a 28-day treatment cycle. spironolactone 25 mg oral tablet (20 sources) Aldosterone Antagonist Start: 025 End: take 1 tablet by mouth once daily Spironolactone 25 mg tablet Discontinued 25 mg PO daily July 02, 2024 12:00am July 02, 2024 11:28am triamcinolone acetonide 1 mg/ml topical cream (15 sources) Corticosteroid Start: triamcinolone acetonide (KENALOG) 0.1 % cream Apply to affected area two times a day. 30 g 1 01/09/2023 Active Comment on above: Apply to affected ar ea two times a day. Turmeric extract (2 sources) End: take 1 tablet by mouth once daily TURMERIC ORAL Take 1 tablet by mouth once daily. 02/15/2021 Discontinued 20 actuat zanamivir 5 mg/actuat dry powder inhaler (4 sources) Neuraminidase Inhibitor Start: End: RELENZA DISKHALER, 5MG/BLISTER (Inhalation Aerosol Powder Breath Activated) 2 (two) Aero Pow Br Act Twice daily for 0 days Quantity: 1 {Aero_Pow_Br_Act} Refills: 0 Ordered: 28-Jan-2009 MARCELO Morales Start : 28-Jan-2009 End : 18-Mar-2009 Inactive Comments: for 5 days Comment on above: for 5 days 100 ml zoledronic acid 0.04 mg/ml injection (1 source) Bisphosphonate Start: 025 End: 025 4 mg, INTRAVENOUS, Administer over 15 Minutes, ONCE, 1 dose, On Sat04/13/24 at 1600, Hazardous Potential Reproductive Risk Drug: Use appropriate PPE. Start: 04-13-2024 End: 04-13-2024 4 mg, INTRAVENOUS, Administe r over 15 Minutes, ONCE, 1 dose, On Sat04/13/24 at 1600, Hazardous Potential Reproductive Risk Drug: Use appropriate PPE. zoledronic acid 3 mg in NaCl 0.9% 100 mL (ZOMETA) (1 source) Start: 11-09-2024 End: 11-09-2024 3 mg, INTRAVENOUS, Administe r over 15 Minutes, ONCE, 1 dose, On Sat11/09/24 at 1000, Hazardous Potential Reproductive Risk Drug: Use appropriate PPE. Refrigerate. Exp: (24 HR) Problems Active Problems Problem Classification Problem Date Documented Da te Episodic/Chronic Acute bronchitis (4 sources) Acute bronchitis; Translations: [Bronchitis, acute] 03-14-2017 Episodic Anxiety disorders (16 sources) Anxiety; Translations: [Anxiety] 03-14-2017 Chronic Biliary tract disease (8 sources) Gallstone; Translations: [Disorder of gallbladder] 03-14-2017 Episodic Cancer of breast (20 sources) Malignant neoplasm of female breast; Translations: [Malignant neoplasm of unspecified site of left female breast] Onset: Chronic Cataract (1 source) Age-related cataract of left eye; Translations: [Unspecified age-related cataract] 03-18-2024 Chronic Chronic obstructive pulmonary disease and bronchiectasis (12 sources) Bronchitis; Translations: [Bronchitis] Resolved: 7 02-11-2017 Episodic Chronic obstructive pulmonary disease and bronchiectasis (16 sources) Chronic obstructive pulmonary disease and bronchiectasis Complications of surgical procedures or medical care (20 sources) Anemia due to antineoplastic chemotherapy; Translations: [Antineoplastic chemotherapy induced anemia] Onset: 8 06-12-2017 Chronic Deficiency and other anemia (1 source) Anemia; Translations: [Anemia, unspecified] 05-04-2024 Episodic Diabetes mellitus with complications (6 sources) Type II diabetes mellitus uncontrolled; Translations: [Type 2 diabetes mellitus with hyperglycemia] Onset: 4 08-20-2023 Chronic Diabetes mellitus without complication (20 sources) Newly diagnosed diabetes; Translations: [Type 2 diabetes mellitus without complications] Onset: 4 07-09-2023 Chronic Diabetes mellitus without complication (14 sources) Hyperglycemia; Translations: [Abnormal glucose tolerance test] Onset: 5 03-14-2017 Episodic Comment on above: pt refused metformin will work on diet and exercise Disorders of lipid metabolism (20 sources) Hypercholesterolemia; Translations: [Mixed hyperlipidemia] Onset: 5 03-14-2017 Chronic Esophageal disorders (20 sources) Gastroesophageal reflux disease; Translations: [Gastro-esophageal reflux disease without esophagitis] Onset: 5 05-03-2024 Chronic Essential hypertension (20 sources) Hypertensive disorder; Translations: [Benign essential hypertension] Onset: 9 03-14-2017 Chronic Fever of unknown origin (12 sources) Fever with chills; Translations: [Fever presenting with conditions classified elsewhere] Resolved: 6 07-18-2015 Episodic Comment on above: she has h/o pneumoni a -- ck cxr cover with antibiotics for now and await flu but story isnt classic Genitourinary symptoms and ill-defined conditions (10 sources) Increased frequency of urination; Translations: [Frequency of micturition] Onset: 5 Episodic Immunizations and screening for infectious disease (3 sources) Patient encounter status; Translations: [Encounter for immunization] Episodic Influenza (5 sources) Influenza; Translations: [Flu] Resolved: 4 03-18-2015 Episodic Lymphadenitis (3 sources) Lymphadenopathy; Translations: [Enlarged lymph nodes, unspecified] Onset: 3 Episodic Malaise and fatigue (4 sources) Malaise and fatigue; Translations: [Other malaise and fatigue] 03-14-2017 Episodic Nutritional deficiencies (12 sources) Vitamin D deficiency; Translations: [Vitamin D deficiency] 03-14-2017 Chronic Osteoarthritis (20 sources) Osteoarthritis of right hip joint; Translations: [Unilateral primary osteoarthritis, right hip] Onset: 9 03-20-2019 Chronic Other aftercare (1 source) Drug therapy finding; Translations: [Encounter for therapeutic drug level monitoring] 08-05-2023 Episodic Other aftercare (1 source) Device in situ; Translations: [Encounter for change or removal of drains] 05-29-2024 Episodic Other circulatory disease (4 sources) Elevated blood-pressure reading without diagnosis of hypertension; Translations: [Elevated blood-pressure reading without diagnosis of hypertension] 03-14-2017 Episodic Comment on above: stop sudafed - do bp s at home and call in to me Other circulatory disease (1 source) Low blood pressure; Translations: [Other hypotension] Episodic Other connective tissue disease (20 sources) History of total knee arthroplasty; Translations: [Presence of left artificial knee joint] Onset: 9 02-23-2019 Chronic Other connective tissue disease (20 sources) History of repair of hip joint; Translations: [Presence of right artificial hip joint] Onset: 0 06-02-2019 Chronic Other connective tissue disease (2 sources) History of total hip arthroplasty; Translations: [Presence of right artificial hip joint] Chronic Other connective tissue disease (8 sources) Muscle pain; Translations: [Myalgia] 03-14-2017 Episodic Comment on above: sees Elena Other connective tissue disease (1 source) Iliotibial band friction syndrome of right knee; Translations: [Iliotibial band syndrome, right leg] Episodic Other connective tissue disease (1 source) Disorder of hip; Translations: [Other symptoms and signs involving the musculoskeletal system] 01-13-2024 Episodic Other connective tissue disease (1 source) Trochanteric bursitis of right hip; Translations: [Trochanteric bursitis, right hip] 01-13-2024 Episodic Other connective tissue disease (2 sources) Swelling of limb; Translations: [Other specified soft tissue disorders] 04-10-2024 Episodic Other diseases of kidney and ureters (3 sources) Renal impairment; Translations: [Disorder of kidney and ureter, unspecified] 09-22-2024 Episodic Other diseases of kidney and ureters (4 sources) Acute renal insufficiency; Translations: [Disorder of kidney and ureter, unspecified] 09-23-2024 Episodic Other diseases of kidney and ureters (2 sources) Disorder of kidney and ureter, unspecified; Translations: [Acute renal insufficiency] Onset: 5 Episodic Other diseases of veins and lymphatics (20 sources) Lymphedema of left upper limb; Translations: [Lymphedema, not elsewhere classified] Onset: 4 07-15-2023 Chronic Other diseases of veins and lymphatics (6 sources) Lymphedema; Translations: [Lymphedema, not elsewhere classified] 09-03-2024 Chronic Other diseases of veins and lymphatics (3 sources) Lymphedema, not elsewhere classified; Translations: [Lymphedema of left arm] Onset: 4 Chronic Other eye disorders (1 source) Excessive tear production; Translations: [Unspecified epiphora, bilateral] 03-18-2024 Episodic Other gastrointestinal disorders (4 sources) Dysphagia Episodic Other gastrointestinal disorders (4 sources) Dysphagia, unspecified; Translations: [Dysphagia, unspecified dysphagia] 03-14-2017 Episodic Other hematologic conditions (1 source) Microcytosis; Translations: [Other abnormality of red blood cells] 08-05-2023 Episodic Other liver diseases (20 sources) Primary biliary cholangitis; Translations: [Primary biliary cirrhosis] Onset: 8 03-14-2017 Chronic Other liver diseases (16 sources) Steatosis of liver; Translations: [Fatty liver] 03-14-2017 Chronic Other liver diseases (2 sources) Primary biliary cirrhosis; Translations: [Primary biliary cirrhosis (HCC)] Onset: 8 Chronic Other liver diseases (4 sources) Abnormal levels of other serum enzymes; Translations: [Elevated liver enzymes level] 03-14-2017 Episodic Comment on above: on 10-15 was 257 alk phos was 232 stopped black cohas and on November 02 from insurance physical 206 and alk phos 149 Other lower respiratory disease (20 sources) Cough; Translations: [Cough] Resolved: 7 02-11-2017 Episodic Other lower respiratory disease (8 sources) Wheezing; Translations: [Wheezing] Resolved: 9 11-30-2013 Episodic Other lower respiratory disease (4 sources) Multiple nodules of lung; Translations: [Lung nodules] 03-14-2017 Episodic Other lower respiratory disease (4 sources) Persistent cough; Translations: [Cough, persistent] 07-28-2015 Episodic Other lower respiratory disease (4 sources) Cough; Translations: [Acute cough] 04-28-2024 Episodic Other lower respiratory disease (1 source) Dyspnea; Translations: [Dyspnea, unspecified] 05-29-2024 Episodic Other nervous system disorders (20 sources) Neuropathy caused by chemical substance; Translations: [Drug-induced polyneuropathy] Onset: 8 08-19-2017 Chronic Other non-traumatic joint disorders (9 sources) Hip pain; Translations: [Pain in right hip] 03-14-2017 Episodic Other non-traumatic joint disorders (8 sources) Shoulder pain; Translations: [Shoulder pain] Resolved: 6 07-18-2015 Episodic Other non-traumatic joint disorders (4 sources) Joint pain; Translations: [Pain in unspecified joint] 03-14-2017 Episodic Other non-traumatic joint disorders (8 sources) Knee pain 03-14-2017 Episodic Other nutritional; endocrine; and metabolic disorders (4 sources) Body mass index 30+ - obesity; Translations: [BMI 30.0-30.9,adult] 03-14-2017 Chronic Other nutritional; endocrine; and metabolic disorders (20 sources) Obesity; Translations: [Other obesity due to excess calories] Onset: 3 Chronic Other nutritional; endocrine; and metabolic disorders (20 sources) Obesity caused by energy imbalance; Translations: [Other obesity due to excess calories] Onset: 3 08-09-2022 Chronic Other screening for suspected conditions (not mental disorders or infectious disease) (19 sources) Mammography abnormal; Translations: [Breast neoplasm screening status] 03-22-2017 Episodic Comment on above: also dx code for lup us profile and labs assoc with it is abn chemisty(VINCENZO) Karin-; endo-; and myocarditis; cardiomyopathy (except that caused by tuberculosis or sexually transmitted disease) (20 sources) 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; 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] Onset: 8 08-19-2017 Chronic Residual codes; unclassified (1 source) Insomnia co-occurrent and due to medical condition; Translations: [Insomnia due to medical condition] 07-09-2024 Chronic Residual codes; unclassified (8 sources) Family history of diabetes mellitus Episodic Residual codes; unclassified (9 sources) Insomnia; Translations: [Insomnia, unspecified] 03-14-2017 Episodic Residual codes; unclassified (12 sources) Insomnia, unspecified Episodic Residual codes; unclassified (4 sources) Postmenopausal state; Translations: [Postmenopausal (Renamed from Postmenopausal status)] 03-14-2017 Episodic Residual codes; unclassified (8 sources) Family history of ischemic heart disease; Translations: [Family history of ischemic heart disease] Resolved: 9 11-30-2013 Episodic Residual codes; unclassified (4 sources) FH: Diabetes mellitus; Translations: [Family history of diabetes mellitus] 03-14-2017 Episodic Residual codes; unclassified (10 sources) History of breast reconstruction; Translations: [Other specified postprocedural states] 03-24-2024 Episodic Residual codes; unclassified (9 sources) Postoperative state; Translations: [Other specified postprocedural states] 05-25-2024 Episodic Residual codes; unclassified (1 source) History of antineoplastic chemotherapy; Translations: [Personal history of antineoplastic chemotherapy] 09-03-2023 Episodic Residual codes; unclassified (1 source) Localized edema; Translations: [Localized edema] Onset: 5 Episodic Secondary malignancies (20 sources) Secondary malignant neoplasm of axillary lymph nodes; Translations: [Secondary and unspecified malignant neoplasm of axilla and upper limb lymph nodes] Onset: 8 04-19-2017 Chronic Secondary malignancies (20 sources) Secondary malignant neoplasm of mediastinal lymph nodes; Translations: [Secondary and unspecified malignant neoplasm of intrathoracic lymph nodes] Onset: 3 08-16-2022 Chronic Secondary malignancies (3 sources) Secondary malignant neoplasm of skin; Translations: [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)] Onset: 3 Chronic Secondary malignancies (1 source) Primary malignant neoplasm of breast; Translations: [Secondary malignant neoplasm of unspecified site] 08-20-2023 Chronic Secondary malignancies (3 sources) Carcinomatous metastasis in skin 07-09-2024 Chronic Secondary malignancies (2 sources) Secondary and unspecified malignant neoplasm of intrathoracic lymph nodes; Translations: [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 lymph node (HCC)] Onset: 3 Chronic Skin and subcutaneous tissue infections (4 sources) Cellulitis of left upper limb; Translations: [Cellulitis of left upper limb] Onset: 5 10-13-2024 Episodic Spondylosis; intervertebral disc disorders; other back problems (20 sources) Cervical radiculopathy; Translations: [Degeneration of lumbar intervertebral disc] Onset: 0 03-14-2017 Chronic Spondylosis; intervertebral disc disorders; other back problems (6 sources) Backache; Translations: [Neck pain] Resolved: 7 03-14-2017 Episodic Sprains and strains (1 source) Strain of neck muscle; Translations: [Strain of muscle, fascia and tendon at neck level, initial encounter] 10-18-2023 Episodic Thyroid disorders (5 sources) Non-toxic uninodular goiter; Translations: [Nontoxic single thyroid nodule] Onset: 5 Chronic Unclassified (20 sources) Unclassified (12 sources) Non-smoker; Translations: [Non-smoker] 03-14-2017 Unclassified (16 sources) Elevated liver enzymes Unclassified (8 sources) BMI 30.0-30.9,adult Unclassified (4 sources) Abnormal glucose tolerance test (Renamed from Abnormal glucose tolerance test (GTT)) Unclassified (1 source) Radiology NM Onset: 4 Unclassified (1 source) Acute cough; Translations: [Acute cough] Onset: 5 Urinary tract infections (12 sources) Acute cystitis; Translations: [Acute cystitis without hematuria] Onset: 5 Episodic Viral infection (1 source) Disease caused by 2019-nCoV; Translations: [COVID-19] Episodic Past or Other Problems Problem Classification Problem Date Documented Da te Episodic/Chronic Abdominal pain (4 sources) Abdominal tenderness of left lower quadrant; Translations: [Left lower quadrant rebound abdominal tenderness] Onset: 4 07-08-2023 Episodic Acute and unspecified renal failure (7 sources) Acute injury of kidney; Translations: [Acute kidney failure, unspecified] Onset: 5 Episodic Administrative/social admission (7 sources) Medical examinations/reports status; Translations: [Patient encounter status] Onset: 4 03-14-2017 Episodic Cancer of breast (11 sources) History of malignant neoplasm of breast; Translations: [Personal history of malignant neoplasm of breast] Onset: 5 03-24-2024 Episodic Cardiac dysrhythmias (6 sources) Palpitations; Translations: [Palpitations] Onset: 5 05-26-2024 Episodic Diseases of mouth; excluding dental (20 sources) Inflammatory disease of mucous membrane; Translations: [Other forms of stomatitis] Onset: 8 06-28-2017 Episodic E Codes: Adverse effects of medical drugs (1 source) Adverse effect of antineoplastic and immunosuppressive drugs, initial encounter; Translations: [Chemotherapy-induced cardiomyopathy (HCC)] Onset: 8 Episodic Fluid and electrolyte disorders (20 sources) Dehydration; Translations: [Dehydration] Onset: 3 10-30-2022 Episodic Nonmalignant breast conditions (10 sources) Breast seroma; Translations: [Other specified disorders of breast] Onset: 5 06-04-2024 Episodic Nonspecific chest pain (20 sources) Musculoskeletal chest pain; Translations: [Other chest pain] Onset: 8 11-21-2017 Episodic Other aftercare (2 sources) alf (current) use of insulin; Translations: [Type 2 diabetes mellitus without complication, with long-term current use of insulin (HCC)] Onset: 5 Episodic Other circulatory disease (4 sources) Other specified symptoms and signs involving the circulatory and respiratory systems; Translations: [Abnormal chest sounds] Resolved: 4 02-22-2015 Episodic Other connective tissue disease (4 sources) Spasm; Translations: [Spasm of muscle] Resolved: 6 07-18-2015 Episodic Other connective tissue disease (20 sources) Pain in axilla; Translations: [Pain in left upper arm] Onset: 8 11-21-2017 Episodic Other connective tissue disease (1 source) Other specified soft tissue disorders; Translations: [Swelling of limb] Onset: 5 Episodic Other gastrointestinal disorders (20 sources) Functional diarrhea; Translations: [Functional diarrhea] Onset: 3 Episodic Other lower respiratory disease (4 sources) Rib pain; Translations: [Rib pain on left side] Resolved: 6 07-18-2015 Episodic Other non-traumatic joint disorders (1 source) Pain in right hip; Translations: [Pain in right hip] Onset: 4 Episodic Other non-traumatic joint disorders (1 source) Pain in right hip joint; Translations: [Right hip pain] 03-14-2017 Other upper respiratory infections (19 sources) Sinusitis; Translations: [Sore throat symptom] Onset: 5 03-14-2017 Episodic Pneumonia (except that caused by tuberculosis or sexually transmitted disease) (4 sources) Bacterial pneumonia; Translations: [Unspecified bacterial pneumonia] Resolved: 4 02-22-2015 Episodic Pneumonia (except that caused by tuberculosis or sexually transmitted disease) (8 sources) Pneumonia (except that caused by tuberculosis or sexually transmitted disease) Residual codes; unclassified (9 sources) Estrogen receptor positive status [ER+]; Translations: [Malignant neoplasm of lower-outer quadrant of left breast of female, estrogen receptor positive (HCC)] Onset: 8 Episodic Residual codes; unclassified (5 sources) Other specified postprocedural states; Translations: [Post-operative state] Onset: 4 Episodic Residual codes; unclassified (1 source) Asymptomatic menopausal state; Translations: [Asymptomatic menopausal state] Onset: 5 Episodic Unclassified (12 sources) Well Woman Exam (V72.31) (Pap,Mammo,Routine Female) Unclassified (4 sources) Abnormal mammogram (793.80) Unclassified (4 sources) Breast Biopsy 03-14-2017 Comment on above: 11-16-06 Unclassified (8 sources) Abnormal Lung Sounds/Rales (786.7) Unclassified (4 sources) Deliveries (Parity); Translations: [Deliveries (Parity)] 03-14-2017 Comment on above: 2 Unclassified (3 sources) FLU (487.1) Unclassified (4 sources) GENERAL SYMPTOMS; OTHER MALAISE AND FATIGUE (780.79) Unclassified (12 sources) Patient encounter status; Translations: [Encounter for screening mammogram for breast cancer (Renamed from Encounter for screening mammogram for malignant neoplasm of breast)] 03-14-2017 Unclassified (4 sources) SYMPTOM, FEVER PREST W/ CONDITIONS ELSEWHERE (780.61) Unclassified (8 sources) ARTHRALGIAS 719.40 Unclassified (8 sources) Lung nodules Unclassified (4 sources) Elevated Blood Pressure without diagnosis of Hypertension (796.2) Unclassified (4 sources) Pregnancies (); Translations: [Pregnancies ()] 03-14-2017 Comment on above: 2 Unclassified (4 sources) Breast cancer screening Unclassified (4 sources) Abnormality of left breast on screening mammogram Unclassified (4 sources) Back pain, unspecified back pain laterality, unspecified location Unclassified (4 sources) Rib pain on left side Unclassified (4 sources) Cough, persistent Unclassified (4 sources) Well woman exam with routine gynecological exam Unclassified (4 sources) Postmenopausal (Renamed from Postmenopausal status) Unclassified (4 sources) Screening for HPV (human papillomavirus) (Renamed from Encounter for screening for human papillomavirus (HPV)) Unclassified (4 sources) History of breast reconstruction 06-04-2024 Results Test Name Value Interpretation Reference Range Facility CNTHERAPYon 11-09-2024 CNTHERAPY OT/PT/Speech Visit ([facility]) PAT SORTO ([id number]) 1960 F [facility] Date Time Provider Department 11/09/24 2:15 PM MIL[facility] Date Time Provider Department Center 11/09/2024 2:15 PM [id number], CAROL A RUST N Reason for Visit: PT Progress Note [1596] Primary Visit Diagnosis:Lymphedema of left arm [I89.0] Allergies As of Date: 11/09/2024 Noted Allergy Reaction AMOXICILLIN 11/15/2022 2 - Rash Comments: rash arms trunk neck face, itching Chills Tolerates Ancef Date Reviewed: 11/09/2024 Reviewed by: Karyn Kirk, FE - Fully Assessed Prescriptions as of 11/12/2024 - tirzepatide (MOUNJARO) 2.5 mg/0.5 mL pen injector Inject 2.5 mg subcutaneously one time a week. - losartan (COZAAR) 100 mg tablet Take 0.5 tablets by mouth every afternoon. - hydroCHLOROthiazide 12.5 mg capsule Take 1 capsule by mouth once daily. - insulin glargine (LANTUS SOLOSTAR U-100 INSULIN) 100 unit/mL (3 mL) Inject 30 Units subcutaneously every morning. - DROPLET PEN NEEDLE 31 gauge x 3/16 1 each two times a day. - amLODIPine (NORVASC) 5 mg tablet Take 5 mg by mouth once daily. - traZODone (DESYREL) 50 mg tablet Take 1 tablet by mouth daily at bedtime. - metoprolol succinate ER (TOPROL XL) 25 mg 24 hr tablet take 1 tablet by mouth once daily - exemestane (AROMASIN) 25 mg tablet Take 1 tablet by mouth once daily. - ursodiol (LEENA) 250 mg tablet Take 250 mg by mouth two times a day. - everolimus, antineoplastic, (AFINITOR) 10 mg tablet TAKE 1 TABLET ONCE DAILY - Sodium Fluoride, Dental Rinse, 0.2 % SWISH 10 ML BY MOUTH THEN SPIT ONCE WEEKLY - diphenhydrAMINE-Acetami nophen (TYLENOL PM EXTRA STRENGTH) 25-500 mg tab Take 1 tablet by mouth at bedtime as needed. - Vputi ULTRA PLUS TEST strp 1 Each two times a day. E11.65; No insulin - Lancets Use with blood glucose test two times a day. Insulin Dep? No - blood sugar diagnostic (BLOOD GLUCOSE TEST) test strip Use with blood glucose test two times a day. Insulin Dep? No - aspirin, enteric coated (ASPIRIN, ENTERIC COATED) 81 mg EC tablet Take 81 mg by mouth once daily. - pantoprazole DR (PROTONIX) 40 mg tablet Take 40 mg by mouth daily before breakfast. - ascorbic acid, vitamin C, (VITAMIN C) 500 mg tablet Take 500 mg by mouth once daily. - alpha tocopheryl acetate (VITAMIN E) 400 unit capsule Take 400 Units by mouth once daily. - cyanocobalamin (VITAMIN B-12) 1,000 mcg tab Take 500 mcg by mouth once daily. - VITAMIN D 50,000 unit capsule Take 1 capsule by mouth one time a week. - CALCIUM CARBONATE (CALCIUM 500 ORAL) Take 1 tablet by mouth once daily. [facility] CNPNon 11-06-2024 CNPN [facility] CNTHERAPYon 11-06-2024 CNTHERAPY OT/PT/Speech Visit ([facility]) PAT SORTO ([id number]) 1960 F [facility] Date Time Provider Department 11/06/24 9:45 AM NOE JACKSON Date Time Provider Department Center 11/06/2024 9:45 AM [id number], MIRANDA [facility] Reason for Visit: Physical Therapy [503] Primary Visit Diagnosis:Lymphedema of left arm [I89.0] Allergies As of Date: 11/06/2024 Noted Allergy Reaction AMOXICILLIN 11/15/2022 2 - Rash Comments: rash arms trunk neck face, itching Chills Tolerates Ancef Date Reviewed: 10/30/2024 Reviewed by: Janee Tang Ma, MA - Fully Assessed Prescriptions as of 11/06/2024 - tirzepatide (MOUNJARO) 2.5 mg/0.5 mL pen injector Inject 2.5 mg subcutaneously one time a week. - losartan (COZAAR) 100 mg tablet Take 0.5 tablets by mouth every afternoon. - hydroCHLOROthiazide 12.5 mg capsule Take 1 capsule by mouth once daily. - insulin glargine (LANTUS SOLOSTAR U-100 INSULIN) 100 unit/mL (3 mL) Inject 30 Units subcutaneously every morning. - DROPLET PEN NEEDLE 31 gauge x 3/16 1 each two times a day. - amLODIPine (NORVASC) 5 mg tablet Take 5 mg by mouth once daily. - traZODone (DESYREL) 50 mg tablet Take 1 tablet by mouth daily at bedtime. - metoprolol succinate ER (TOPROL XL) 25 mg 24 hr tablet take 1 tablet by mouth once daily - exemestane (AROMASIN) 25 mg tablet Take 1 tablet by mouth once daily. - ursodiol (LEENA) 250 mg tablet Take 250 mg by mouth two times a day. - everolimus, antineoplastic, (AFINITOR) 10 mg tablet TAKE 1 TABLET ONCE DAILY - Sodium Fluoride, Dental Rinse, 0.2 % SWISH 10 ML BY MOUTH THEN SPIT ONCE WEEKLY - diphenhydrAMINE-Acetami nophen (TYLENOL PM EXTRA STRENGTH) 25-500 mg tab Take 1 tablet by mouth at bedtime as needed. - Vputi ULTRA PLUS TEST strp 1 Each two times a day. E11.65; No insulin - Lancets Use with blood glucose test two times a day. Insulin Dep? No - blood sugar diagnostic (BLOOD GLUCOSE TEST) test strip Use with blood glucose test two times a day. Insulin Dep? No - aspirin, enteric coated (ASPIRIN, ENTERIC COATED) 81 mg EC tablet Take 81 mg by mouth once daily. - pantoprazole DR (PROTONIX) 40 mg tablet Take 40 mg by mouth daily before breakfast. - ascorbic acid, vitamin C, (VITAMIN C) 500 mg tablet Take 500 mg by mouth once daily. - alpha tocopheryl acetate (VITAMIN E) 400 unit capsule Take 400 Units by mouth once daily. - cyanocobalamin (VITAMIN B-12) 1,000 mcg tab Take 500 mcg by mouth once daily. - VITAMIN D 50,000 unit capsule Take 1 capsule by mouth one time a week. - CALCIUM CARBONATE (CALCIUM 500 ORAL) Take 1 tablet by mouth once daily. [facility] CNTHERAPYon 11-04-2024 [facility] ([id number]) 1960 F [facility] Date Time Provider Department 11/04/24 10:30 AM NOE JACKSONOH Date Time Provider Department Center 11/04/2024 10:30 AM [id number], MIRANDA RUST N Reason for Visit: Physical Therapy [503] Primary Visit Diagnosis:Lymphedema of left arm [I89.0] Allergies As of Date: 11/04/2024 Noted Allergy Reaction AMOXICILLIN 11/15/2022 2 - Rash Comments: rash arms trunk neck face, itching Chills Tolerates Ancef Date Reviewed: 10/30/2024 Reviewed by: Janee Tang Ma, MA - Fully Assessed Prescriptions as of 11/04/2024 - losartan (COZAAR) 100 mg tablet Take 0.5 tablets by mouth every afternoon. - hydroCHLOROthiazide 12.5 mg capsule Take 1 capsule by mouth once daily. - insulin glargine (LANTUS SOLOSTAR U-100 INSULIN) 100 unit/mL (3 mL) Inject 30 Units subcutaneously every morning. - DROPLET PEN NEEDLE 31 gauge x 3/16 1 each two times a day. - amLODIPine (NORVASC) 5 mg tablet Take 5 mg by mouth once daily. - traZODone (DESYREL) 50 mg tablet Take 1 tablet by mouth daily at bedtime. - metoprolol succinate ER (TOPROL XL) 25 mg 24 hr tablet take 1 tablet by mouth once daily - exemestane (AROMASIN) 25 mg tablet Take 1 tablet by mouth once daily. - ursodiol (LEENA) 250 mg tablet Take 250 mg by mouth two times a day. - everolimus, antineoplastic, (AFINITOR) 10 mg tablet TAKE 1 TABLET ONCE DAILY - Sodium Fluoride, Dental Rinse, 0.2 % SWISH 10 ML BY MOUTH THEN SPIT ONCE WEEKLY - diphenhydrAMINE-Acetami nophen (TYLENOL PM EXTRA STRENGTH) 25-500 mg tab Take 1 tablet by mouth at bedtime as needed. - AquacueTOUCH ULTRA PLUS TEST strp 1 Each two times a day. E11.65; No insulin - Lancets Use with blood glucose test two times a day. Insulin Dep? No - blood sugar diagnostic (BLOOD GLUCOSE TEST) test strip Use with blood glucose test two times a day. Insulin Dep? No - aspirin, enteric coated (ASPIRIN, ENTERIC COATED) 81 mg EC tablet Take 81 mg by mouth once daily. - pantoprazole DR (PROTONIX) 40 mg tablet Take 40 mg by mouth daily before breakfast. - ascorbic acid, vitamin C, (VITAMIN C) 500 mg tablet Take 500 mg by mouth once daily. - alpha tocopheryl acetate (VITAMIN E) 400 unit capsule Take 400 Units by mouth once daily. - cyanocobalamin (VITAMIN B-12) 1,000 mcg tab Take 500 mcg by mouth once daily. - VITAMIN D 50,000 unit capsule Take 1 capsule by mouth one time a week. - CALCIUM CARBONATE (CALCIUM 500 ORAL) Take 1 tablet by mouth once daily. Normal [facility] Cardiology Visit Reporton Cardiology Visit Report [facility] [address] [place], [place] [id number] OFFICE VISIT Date of Service: 11/02/24 MR#: [id number] Acct: [id number] Name: PAT SORTO Rep #: [id number] : 1960 Provider: RUSSELL Lr Age/Sex: 64/F Location: [facility] Status: Signed HPI HPI History of Present Illness Details: Pat Sorto is a 64-year-old female who presents today for follow-up for monitoring her cardiovascular health. She has a history of metastatic breast carcinoma diagnosed in 2018. Echocardiogram demonstrated decline in her global longitudinal strain. She has a history of hypertension and drug-induced diabetes mellitus and has been on glipizide as well as Afinitor or/and exemestane. Upon presentation today, patient reports she recently had an e. coli UTI currently on antibiotics. She also had cellulitis in her left arm. This infection has been going on for about 2 months now. She reports noticing fatigue but feels this may be due to infection and insomnia. She finds herself intermittently dizzy when she is outside in the heat. Nephrology, Dr Carter, decrease Losartan to 50mg and hctz to 12.5mg last week. Her home BP has been well controlled, sometimes on the lower end. Further ROS below. Intake Vital Signs 07/02/24 11:07 11/02/24 11:11 Height 5 ft 6 in 5 ft 6 in Weight: 170 lb 180 lb BMI 27.4 29.0 BP 157/93 H 115/78 Blood Pressure Location Rt brachial Rt brachial Position Sitting Sitting Respiration 16 18 Pulse 82 82 Pulse Source Monitor Monitor Pulse Oximetry (%) 98 Oxygen Delivery Method room air Intake Visit Reasons: 4 M [employer] Super[employer] Required: No Accompanied by: Self Is patient in pain?: No Allergies No Known Allergies Allergy (Verified 11/02/24 11:11) Medications ???Medication ???Instructions ???Recorded ???Confirmed ???Type ascorbic acid (vitamin C) 100 mg 500 mg PO QDAY 03/29/17 11/02/24 H istory tablet vitamin E (dl, acetate) 45 mg (100 400 unit PO QDAY 03/29/17 History unit) capsule aspirin 81 mg chewable tablet 81 mg PO ONCE 04/04/17 11/02/24 Hi story cyanocobalamin (vitamin B-12) 1,000 mcg PO DAILY 04/23/17 History 1,000 mcg capsule ergocalciferol (vitamin D2) 1,250 50,000 unit PO QWEEK 09/03/23 History mcg (50,000 unit) capsule (Vitamin D2) everolimus (antineoplastic) 10 mg 10 mg PO DAILY 09/03/23 11/02/24 History tablet exemestane 25 mg tablet 25 mg PO DAILY 09/03/23 11/02/24 H istory lorazepam 0.5 mg tablet 0.5 mg PO TID PRN anxiety 09/03/23 11/02/24 History pantoprazole 40 mg tablet,delayed 40 mg PO DAILY 09/03/23 11/02/24 History release calcium carbonate 1,000 mg PO DAILY 10/09/23 5 History amlodipine 5 mg tablet 5 mg PO QDAY #90 tabs 07/02/24 Rx insulin glargine 100 unit/mL (3 20 unit subcut QAM 07/02/24 History mL) subcutaneous pen (Lantus Solostar U-100 Insulin) metoprolol succinate 25 mg 25 mg PO QDAY 07/02/24 11/02/24 Hi story tablet,extended release 24 hr ursodiol 500 mg tablet (LEENA Forte) 1,250 mg PO QDAY 07/02/2411/02 History hydrochlorothiazide 12.5 mg tablet 12.5 mg PO QDAY 11/02/24 5 History losartan 25 mg tablet 25 mg PO DAILY #30 tabs 11/02/24 0 11/02/24 Rx Have you fallen in the past year?: No PFSH Medical History History of removal of left breast implant (05/18/24) Acute kidney injury Chemotherapy induced cardiomyopathy Malignant neoplasm of lower-outer quadrant of left breast of female, estrogen receptor positive Type 2 diabetes mellitus with hyperglycemia Primary biliary cirrhosis History of chemotherapy Breast cancer Abnormal mammogram of left breast HTN (hypertension) Surgical History Hx of total mastectomy of left breast S/P breast biopsy S/P total knee replacement History of section Family History Mother Diabetes Heart disease Hypertension CVA (cerebral vascular accident) Father Diabetes Hypertension Social History Smoking Status: Never smoker alcohol intake: current alcohol intake frequency: 0-2 drinks per day substance use type: does not use ROS Const Const: Positive for fatigue (attributes to bacterial infection); Negative for weakness ENT ENT: Positive for dizziness (intermittently); Negative for balance problems Cardio Chest Pain: No Palpitations: No Edema: None Muscle aches with walking: None Resp Respiratory: Negative for SOB with activity, SOB at rest or SOB orthopnea SOB lying down GI GI: Negative nausea, vomiting o (more content not included)... Normal [facility] CNOVSPon 10-30-2024 CNOVSP Normal [facility] CNTHERAPYon 10-30-2024 CNTHERAPY OT/PT/Speech Visit ([facility]) PAT SORTO ([id number]) 1960 F [facility] Date Time Provider Department 10/30/24 3:00 PM NOE JACKSONOH Date Time Provider Department Center 10/30/2024 3:00 PM [id number], MIRANDA [facility] Reason for Visit: Physical Therapy [503] Primary Visit Diagnosis:Lymphedema of left arm [I89.0] Allergies As of Date: 10/30/2024 Noted Allergy Reaction AMOXICILLIN 11/15/2022 2 - Rash Comments: rash arms trunk neck face, itching Chills Tolerates Ancef Date Reviewed: 10/30/2024 Reviewed by: Janee Tang Ma, MA - Fully Assessed Prescriptions as of 10/30/2024 - losartan (COZAAR) 100 mg tablet Take 0.5 tablets by mouth every afternoon. - hydroCHLOROthiazide 12.5 mg capsule Take 1 capsule by mouth once daily. - insulin glargine (LANTUS SOLOSTAR U-100 INSULIN) 100 unit/mL (3 mL) Inject 30 Units subcutaneously every morning. - DROPLET PEN NEEDLE 31 gauge x 3/16 1 each two times a day. - amLODIPine (NORVASC) 5 mg tablet Take 5 mg by mouth once daily. - traZODone (DESYREL) 50 mg tablet Take 1 tablet by mouth daily at bedtime. - metoprolol succinate ER (TOPROL XL) 25 mg 24 hr tablet take 1 tablet by mouth once daily - exemestane (AROMASIN) 25 mg tablet Take 1 tablet by mouth once daily. - ursodiol (LEENA) 250 mg tablet Take 250 mg by mouth two times a day. - everolimus, antineoplastic, (AFINITOR) 10 mg tablet TAKE 1 TABLET ONCE DAILY - Sodium Fluoride, Dental Rinse, 0.2 % SWISH 10 ML BY MOUTH THEN SPIT ONCE WEEKLY - diphenhydrAMINE-Acetami nophen (TYLENOL PM EXTRA STRENGTH) 25-500 mg tab Take 1 tablet by mouth at bedtime as needed. - ONETOUCH ULTRA PLUS TEST strp 1 Each two times a day. E11.65; No insulin - Lancets Use with blood glucose test two times a day. Insulin Dep? No - blood sugar diagnostic (BLOOD GLUCOSE TEST) test strip Use with blood glucose test two times a day. Insulin Dep? No - aspirin, enteric coated (ASPIRIN, ENTERIC COATED) 81 mg EC tablet Take 81 mg by mouth once daily. - pantoprazole DR (PROTONIX) 40 mg tablet Take 40 mg by mouth daily before breakfast. - ascorbic acid, vitamin C, (VITAMIN C) 500 mg tablet Take 500 mg by mouth once daily. - alpha tocopheryl acetate (VITAMIN E) 400 unit capsule Take 400 Units by mouth once daily. - cyanocobalamin (VITAMIN B-12) 1,000 mcg tab Take 500 mcg by mouth once daily. - VITAMIN D 50,000 unit capsule Take 1 capsule by mouth one time a week. - CALCIUM CARBONATE (CALCIUM 500 ORAL) Take 1 tablet by mouth once daily. [facility] CNTHERAPYon 10-28-2024 CNTHERAPY OT/PT/Speech Visit ([facility]) PAT SORTO ([id number]) 1960 F [facility] Date Time Provider Department 10/28/24 3:45 PM NOE JACKSON Date Time Provider Department Center 10/28/2024 3:45 PM [id number], MIRANDA [facility] Reason for Visit: Physical Therapy [503] Primary Visit Diagnosis:Lymphedema of left arm [I89.0] Allergies As of Date: 10/28/2024 Noted Allergy Reaction AMOXICILLIN 11/15/2022 2 - Rash Comments: rash arms trunk neck face, itching Chills Tolerates Ancef Date Reviewed: 10/26/2024 Reviewed by: Lisbet Pizano APRN.PLATEN GRINDER - Fully Assessed Prescriptions as of 10/28/2024 - insulin glargine (LANTUS SOLOSTAR U-100 INSULIN) 100 unit/mL (3 mL) Inject 30 Units subcutaneously every morning. - DROPLET PEN NEEDLE 31 gauge x 3/16 1 each two times a day. - hydroCHLOROthiazide 25 mg tablet Take 25 mg by mouth once daily. - amLODIPine (NORVASC) 5 mg tablet Take 5 mg by mouth once daily. - traZODone (DESYREL) 50 mg tablet Take 1 tablet by mouth daily at bedtime. - metoprolol succinate ER (TOPROL XL) 25 mg 24 hr tablet take 1 tablet by mouth once daily - exemestane (AROMASIN) 25 mg tablet Take 1 tablet by mouth once daily. - losartan (COZAAR) 100 mg tablet Take 1 tablet by mouth every afternoon. - ursodiol (LEENA) 250 mg tablet Take 250 mg by mouth two times a day. - everolimus, antineoplastic, (AFINITOR) 10 mg tablet TAKE 1 TABLET ONCE DAILY - Sodium Fluoride, Dental Rinse, 0.2 % SWISH 10 ML BY MOUTH THEN SPIT ONCE WEEKLY - diphenhydrAMINE-Acetami nophen (TYLENOL PM EXTRA STRENGTH) 25-500 mg tab Take 1 tablet by mouth at bedtime as needed. - AquacueTOUCH ULTRA PLUS TEST strp 1 Each two times a day. E11.65; No insulin - Lancets Use with blood glucose test two times a day. Insulin Dep? No - blood sugar diagnostic (BLOOD GLUCOSE TEST) test strip Use with blood glucose test two times a day. Insulin Dep? No - aspirin, enteric coated (ASPIRIN, ENTERIC COATED) 81 mg EC tablet Take 81 mg by mouth once daily. - pantoprazole DR (PROTONIX) 40 mg tablet Take 40 mg by mouth daily before breakfast. - ascorbic acid, vitamin C, (VITAMIN C) 500 mg tablet Take 500 mg by mouth once daily. - alpha tocopheryl acetate (VITAMIN E) 400 unit capsule Take 400 Units by mouth once daily. - cyanocobalamin (VITAMIN B-12) 1,000 mcg tab Take 500 mcg by mouth once daily. - VITAMIN D 50,000 unit capsule 1 capsule one time a week. - CALCIUM CARBONATE (CALCIUM 500 ORAL) Take 1 tablet by mouth once daily. Normal [facility] CBC W Auto Differential pane l (Bld)on 10-27-2024 Basophils (Bld) [#/Vol] 0.05 10*3/uL Normal <0.11 [facility] Comment on above: Order Comment: Speci men Type: BLOOD SPECIMENOrdering Facility: [facility] Address: [address] [place] [address] Performed By: #### 5 7021-8 ####[facility] [id number] [place] [address] [place] Basophils/100 WBC (Bld) 0.9 % Normal C [facility] Comment on above: Order Comment: Speci men Type: BLOOD SPECIMENOrdering Facility: [facility] Address: [address] [place], [place] [address] Performed By: #### 5 7021-8 ####[facility] [id number] [place] [address] [place] Differential cell count method Nom (Bld) Auto Normal [facility] Comment on above: Order Comment: Speci men Type: BLOOD SPECIMENOrdering Facility: [facility] Address: [address] [place] [address] Performed By: #### 5 7021-8 ####[facility] MAURYLEJUNIORCARLOSLIA [id number] [place] [address] [place] Eosinophils (Bld) [#/Vol] 0.09 10*3/uL Normal <0.46 [facility] Comment on above: Order Comment: Speci men Type: BLOOD SPECIMENOrdering Facility: [facility] Address: [address] [place] [address] Performed By: #### 5 7021-8 ####[facility] [id number] [place] [address] [place] Eosinophils/100 WBC (Bld) 1.6 % Normal [facility] Comment on above: Order Comment: Speci men Type: BLOOD SPECIMENOrdering Facility: [facility] Address: [address] [place] [address] Performed By: #### 5 7021-8 ####[facility] [id number] [place] [address] [place] Erythrocyte distribution width (RBC) [Ratio] 13.4 % Normal 11.5-15.0 [facility] Comment on above: Order Comment: Speci men Type: BLOOD SPECIMENOrdering Facility: [facility] Address: [address] [place] [address] Performed By: #### 5 7021-8 ####[facility]THNCLIA [id number] [place] [address] [place] Hematocrit (Bld) [Volume fraction] 27.3 % Low 36.0-46.0 [facility] Comment on above: Order Comment: Speci men Type: BLOOD SPECIMENOrdering Facility: [facility] Address: [address] [place] [address] Performed By: #### 5 7021-8 ####[facility]ITALWYISSELA [id number] [place] [address] [place] Hemoglobin (Bld) [Mass/Vol] 9.1 g/dL Low 11.5-15.5 [facility] Comment on above: Order Comment: Speci men Type: BLOOD SPECIMENOrdering Facility: [facility] Address: [address] [place] [address] Performed By: #### 5 7021-8 ####[facility] [id number] [place] [address] [place] Immature granulocytes (Bld) [#/Vol] 0.03 10*3/uL Normal <0.10 [facility] Comment on above: Order Comment: Speci men Type: BLOOD SPECIMENOrdering Facility: [facility] Address: [address] [place] [address] Performed By: #### 5 7021-8 ####[facility] [id number] [place] [address] [place] Immature granulocytes/100 WBC (Bld) 0.5 % Normal [facility] Comment on above: Order Comment: Speci men Type: BLOOD SPECIMENOrdering Facility: [facility] Address: [address] [place] [address] Performed By: #### 5 7021-8 ####[facility] [id number] [place] [address] [place] Lymphocytes (Bld) [#/Vol] 1.48 10*3/uL Normal 1.00-4.00 [facility] Comment on above: Order Comment: Speci men Type: BLOOD SPECIMENOrdering Facility: [facility] Address: [address] [place] [address] Performed By: #### 5 7021-8 ####[facility] NORTHNCLI [id number] [place] [address] [place] Lymphocytes/100 WBC (Bld) 26.4 % Normal [facility] Comment on above: Order Comment: Speci men Type: BLOOD SPECIMENOrdering Facility: [facility] Address: [address] [place] [address] Performed By: #### 5 7021-8 ####[facility] [id number] [address] [place] [facility] MCH (RBC) [Entitic mass] 28.3 pg Normal 26.0-34.0 [facility] Comment on above: Order Comment: Speci men Type: BLOOD SPECIMENOrdering Facility: [facility] Address: [address] [place] [address] Performed By: #### 5 7021-8 ####[facility] [id number] [place] [address] [place] MCHC (RBC) [Mass/Vol] 33.3 g/dL Normal 30.5-36.0 [facility] Comment on above: Order Comment: Speci men Type: BLOOD SPECIMENOrdering Facility: [facility] Address: [address] [place] [address] Performed By: #### 5 7021-8 ####[facility] [id number] [place] [address] [place] MCV (RBC) [Entitic vol] 84.8 fL Normal 80.0-100.0 [facility] Comment on above: Order Comment: Speci men Type: BLOOD SPECIMENOrdering Facility: [facility] Address: [address] [place] [address] Performed By: #### 5 7021-8 ####[facility] [id number] [place] [address] [place] Monocytes (Bld) [#/Vol] 0.44 10*3/uL Normal <0.87 [facility] Comment on above: Order Comment: Speci men Type: BLOOD SPECIMENOrdering Facility: [facility] Address: [address] [place] [address] Performed By: #### 5 7021-8 ####[facility] MAURYLEJUNIORYISSELA [id number] [place] [address] [place] Monocytes/100 WBC (Bld) 7.8 % Normal [facility] Comment on above: Order Comment: Speci men Type: BLOOD SPECIMENOrdering Facility: [facility] Address: [address] [place] [address] Performed By: #### 5 7021-8 ####[facility] NORTHNCLIA [id number] [place] [address] [place] Neutrophils (Bld) [#/Vol] 3.52 10*3/uL Normal 1.45-7.50 [facility] Comment on above: Order Comment: Speci men Type: BLOOD SPECIMENOrdering Facility: [facility] Address: [address] [place] [address] Performed By: #### 5 7021-8 ####[facility] [id number] [place] [address] [place] Neutrophils/100 WBC (Bld) 62.8 % Normal [facility] Comment on above: Order Comment: Speci men Type: BLOOD SPECIMENOrdering Facility: [facility] Address: [address] [place] [address] Performed By: #### 5 7021-8 ####[facility] HOSPITALLIA [id number] [place] [address] [place] Nucleated RBC (Bld) [#/Vol] 10*3/uL Normal <0.01 [facility] Comment on above: Order Comment: Speci men Type: BLOOD SPECIMENOrdering Facility: [facility] Address: [address] [place] [address] Performed By: #### 5 7021-8 ####[facility] FLORIDATOWNCLIA [id number] [place] [address] [place] Nucleated RBC/100 WBC (Bld) [Ratio] 0.0 /100 WBC Normal [facility] Comment on above: Order Comment: Speci men Type: BLOOD SPECIMENOrdering Facility: [facility] Address: [address] [place] [address] Performed By: #### 5 7021-8 ####[facility] MAURYLEJUNIORNIA [id number] [place] [address] [place] Platelet mean volume (Bld) [Entitic vol] 9.8 fL Normal 9.0-12.7 [facility] Comment on above: Order Comment: Speci men Type: BLOOD SPECIMENOrdering Facility: [facility] Address: [address] [place] [address] Performed By: #### 5 7021-8 ####[facility] NORTHCARLOSKey [id number] [place] [address] [place] Platelets (Bld) [#/Vol] 204 10*3/uL Normal 150-400 [facility] Comment on above: Order Comment: Speci men Type: BLOOD SPECIMENOrdering Facility: [facility] Address: [address] [place] [address] Performed By: #### 5 7021-8 ####[facility] MAURYLEJUNIORCARLOSLIA [id number] [place] [address] [place] RBC (Bld) [#/Vol] 3.22 10*6/uL Low 3.90-5.[address] [facility] Comment on above: Order Comment: Speci men Type: BLOOD SPECIMENOrdering Facility: [facility] Address: [address] [place] [address] Performed By: #### 5 7021-8 ####[facility] NORTHNCLIA [id number] [place] [address] [place] WBC (Bld) [#/Vol] 5.61 10*3/uL Normal 3.70-11.[address] [facility] Comment on above: Order Comment: Speci men Type: BLOOD SPECIMENOrdering Facility: [facility] Address: [address] [place] [address] Performed By: #### 5 7021-8 ####[facility] NORTHCARLOSLIA [id number] [place] [address] [place] [facility] Comprehensive metabolic 2000 panelon 10-27-2024 Albumin [Mass/Vol] 3.9 g/dL Normal 3.9-4.9 [facility] Comment on above: Order Comment: Speci men Type: BLOOD SPECIMENOrdering Facility: [facility] Address: [address] [place] [address] Performed By: #### 2 4323-8 ####[facility] HOSPITALLIA [id number] [place] [address] [place] ALP [Catalytic activity/Vol] 57 U/L Normal 34-123 [facility] Comment on above: Order Comment: Speci men Type: BLOOD SPECIMENOrdering Facility: [facility] Address: [address] [place] [address] Performed By: #### 2 4323-8 ####[facility] HOSPITALLIA [id number] [address] OF HEATHER ALT [Catalytic activity/Vol] 16 U/L Normal 7-38 [facility] Comment on above: Order Comment: Speci men Type: BLOOD SPECIMENOrdering Facility: [facility] Address: [address] [place] [address] Performed By: #### 2 4323-8 ####[facility] MILLTOWNCLIA [id number] [place] [address] [place] Anion gap [Moles/Vol] 14 mmol/L Normal 8-15 [facility] Comment on above: Order Comment: Speci men Type: BLOOD SPECIMENOrdering Facility: [facility] Address: [address] [place] [address] Performed By: #### 2 4323-8 ####[facility] FLORESITANCSADAF [id number] [place] [address] [place] AST [Catalytic activity/Vol] 23 U/L Normal 13-35 [facility] Comment on above: Order Comment: Speci men Type: BLOOD SPECIMENOrdering Facility: [facility] Address: [address] [place] [address] Performed By: #### 2 4323-8 ####[facility] FLORESITANCASHAA [id number] [place] [address] [place] Bilirubin [Mass/Vol] 0.4 mg/dL Normal 0.2-1.3 [facility] Comment on above: Order Comment: Speci men Type: BLOOD SPECIMENOrdering Facility: [facility] Address: [address] [place] [address] Performed By: #### 2 4323-8 ####[facility] NORTHNCLIA [id number] [place] [address] [place] Calcium [Mass/Vol] 9.2 mg/dL Normal 8.5-10.2 [facility] Comment on above: Order Comment: Speci men Type: BLOOD SPECIMENOrdering Facility: [facility] Address: [address] [place] [address] Performed By: #### 2 4323-8 ####[facility] MAURYWNCLIA [id number] [place] [address] [place] Chloride [Moles/Vol] 100 mmol/L Normal 98-107 [facility] Comment on above: Order Comment: Speci men Type: BLOOD SPECIMENOrdering Facility: [facility] Address: [address] [place] [address] Performed By: #### 2 4323-8 ####[facility] MILLTORWNCLIA [id number] [place] [address] [place] CO2 [Moles/Vol] 23 mmol/L Normal 22-30 [facility] Comment on above: Order Comment: Speci men Type: BLOOD SPECIMENOrdering Facility: [facility] Address: [address] [place] [address] Performed By: #### 2 4323-8 ####[facility] NORTHNCLIA [id number] [place] [address] [place] Creatinine [Mass/Vol] 1.86 mg/dL High 0.58-0.96 [facility] Comment on above: Order Comment: Speci men Type: BLOOD SPECIMENOrdering Facility: [facility] Address: [address] [place] [address] Performed By: #### 2 4323-8 ####[facility] NORTHNCLIA [id number] [place] [address] [place] eGFRcr SerPlBld CKD-EPI 2020 30 mL/min/1.73m??? Low >=60 [facility] Comment on above: Order Comment: Speci men Type: BLOOD SPECIMENOrdering Facility: [facility] Address: [address] [place] [address] Result Comment: Sherlyn mated Glomerular Filtration Rate (eGFR) is calculated using the 2020 CKD-EPI creatinine equation. This equation utilizes serum creatinine, sex, and age as parameters. The creatinine assay has traceable calibration to isotope dilution-mass spectrometry. Refer to KDIGO guidelines for clinical interpretation. In patients with unstable renal function, e.g. those with acute kidney injury, the eGFR may not accurately reflect actual GFR. Performed By: #### 2 4323-8 ####[facility] MAURYWNCLIA [id number] [place] [address] [place] Glucose [Mass/Vol] 204 mg/dL High 74-99 [facility] Comment on above: Order Comment: Speci men Type: BLOOD SPECIMENOrdering Facility: [facility] Address: [address] [place], [place] [address] Result Comment: The [place] [employer] (ADA) provides guidance for cutoff values for fasting glucose and random glucose. The ADA defines fasting as no caloric intake for at least 8 hours. Fasting plasma glucose results between 100 to 125 mg/dL indicate increased risk for diabetes (prediabetes).Fasting plasma glucose results greater than or equal to 126 mg/dL meet the criteria for diagnosis of diabetes. In the absence of unequivocal hyperglycemia, results should be confirmed by repeat testing. In a patient with classic symptoms of hyperglycemia or hyperglycemic crisis, random plasma glucose results greater than or equal to 200 mg/dL meet the criteria for diagnosis of diabetes.Reference: Standards of Medical Care in Diabetes 2016, [place] [employer]. Diabetes Care. 2016.39(Suppl 1). Performed By: #### 2 4323-8 ####[facility] [id number] [place] [address] [place] Potassium [Moles/Vol] 3.8 mmol/L Normal 3.7-5.1 [facility] Comment on above: Order Comment: Speci men Type: BLOOD SPECIMENOrdering Facility: [facility] Address: [address] [place] [address] Performed By: #### 2 4323-8 ####[facility] [id number] [place] [address] [place] Protein [Mass/Vol] 7.1 g/dL Normal 6.3-8.0 [facility] Comment on above: Order Comment: Speci men Type: BLOOD SPECIMENOrdering Facility: [facility] Address: [address] [place], [place] [address] Performed By: #### 2 4323-8 ####[facility] [id number] [place] [address] [place] Sodium [Moles/Vol] 137 mmol/L Normal 136-144 [facility] Comment on above: Order Comment: Speci men Type: BLOOD SPECIMENOrdering Facility: [facility] Address: [address] [place] [address] Performed By: #### 2 4323-8 ####[facility] [id number] [place] [address] [place] Urea nitrogen [Mass/Vol] 49 mg/dL High 10-26 [facility] Comment on above: Order Comment: Speci men Type: BLOOD SPECIMENOrdering Facility: [facility] Address: [address] [place], [place] [address] Performed By: #### 2 4323-8 ####[facility] [id number] [place] [address] [place] Bacteria Ur Culton Bacteria identified Cx Nom (U) Normal [facility] Comment on above: Performed By: #### 6 30-4 ####[facility] LABCLIA [id number] [place] [address] [place] CNOVon 10-26-2024 CNOV Normal [facility] GLUCOSE, BLOOD (POC)on 10-26 Glucose [Mass/Vol] 115 mg/dL Abnormal 74 - 99 mg/dL [facility] Comment on above: Location:[facility], [address] [place] [address], [address] The Accu-Chek Inform II glucose meter has not been approved for testing on patients receiving intensive medical intervention or therapy and results from this point of care glucose test should not be used for patient management decisions in these cases. Inaccurate results may also occur from other interfering factors, such as N-acetylcysteine (blood concentrations of greater than 5mg/dL), galactose, extremes of hematocrit (<10 or >65), or high doses of ascorbic acid (vitamin C) greater than 3mg/dL. Consider alternate testing mechanisms (e.g. core lab, blood gas instrument) in the above situations. Interpretation and review of laboratory results Abnormal [facility] NM PET/CT SKULL-THIGH SUBQon 10-26-2024 NM PET/CT SKULL-THIGH SUBQ * * *Final Report* * * DATE OF EXAM: Oct 26 2024 10:54AM [facility] 0063 - NM PET/CT SKULL-THIGH SUBQ / PROCEDURE REASON: multiple diagnoses * * * * Physician Interpretation * * * * EXAMINATION: BODY FDG PET-CT CLINICAL HISTORY: Breast cancer EXAM CATEGORY: Subsequent treatment strategy. TECHNIQUE: Radiopharmaceutical was administered intravenously followed by PET imaging from the eyes to thighs. Free breathing, low dose CT of the same body region was acquired without IV contrast for attenuation correction and anatomic localization. Unenhanced imaging is limited for the evaluation of some pathology and the acquired CT was not designed to produce diagnostic CT scan quality. Physiologic/non-patholo gic uptake in some body regions could confound or obscure some pathology. * CT Dose-Length Product (DLP): 353 mGy*cm * CT Dose Reduction Employed: Yes * Blood glucose: 115 mg/dL * Injection site: Right Forearm-Antecubital * Injected activity: 10.9 mCi * Uptake Time: 58 minutes * Radiopharmaceutical: [id number] (FDG) COMPARISON: PET/CT 06/30/2024 RESULT: REFERENCES: FDG uptake is used as a surrogate marker for glucose metabolism. All reported standardized uptake values represent maximum SUV (SUVmax) per body weight, unless otherwise specified. SUV reference values, as follows: * Blood Pool (Descending Aorta): SUVmax 2.7 * Background Liver: SUVmax 3.6; SUVmean 2.8 Localizer Images: No additional findings. HEAD AND NECK: Head: No radiotracer avid lesion or mass effect in the imaged intracranial compartment. Aerodigestive Tract: No radiotracer avid lesion. Lymph Nodes: No radiotracer avid lymphadenopathy. Neck Soft Tissues: No radiotracer avid thyroid nodule. CHEST: Lungs and Pleura: No radiotracer avid mass, nodule, or consolidation. No pleural effusion. Lymph Nodes: Hypermetabolic right axillary lymph nodes measuring up to (max SUV 5.5, about 0.8 cm increased from prior max SUV 3.9). Another mildly hypermetabolic right axillary lymph node (Max SUV 3.8 measures 0.5 cm). Mediastinum: No radiotracer avid mass. Cardiovascular: Blood pool activity. No pericardial effusion. Normal heart size. Chest Wall: No radiotracer avid soft tissue lesion. Left mastectomy with mild diffuse uptake in the left chest wall (max SUV 2.7). ABDOMEN AND PELVIS: Hepatobiliary: No radiotracer avid lesion. No measurable mass. Cholelithiasis. Spleen: No radiotracer avid lesion. No splenomegaly. Pancreas: No radiotracer avid lesion. Adrenals: No radiotracer avid nodule. Urinary Tract: Physiologic radiotracer excretion in the renal collecting systems and urinary bladder. No hydronephrosis. Right renal calculus. GI Tract: No radiotracer avid lesion. No bowel dilation. Peritoneum: No radiotracer avid lesion. No ascites. Lymph Nodes: No radiotracer avid lymphadenopathy. Vasculature: Blood pool activity. Pelvic Organs: No radiotracer avid lesion. MUSCULOSKELETAL: Bones: No radiotracer avid lesion. No lytic or sclerotic lesion. Right hip prosthesis. Soft Tissues: No radiotracer avid lesion. Mild activity with subcutaneous stranding in the gluteal regions is likely inflammatory. IMPRESSION Primary: Postsurgical changes. No FDG avid neoplasm Merlyn: Hypermetabolic right axillary lymph nodes. Increased from prior PET scan Metastases: No metabolically active metastases. Script Worker: MARTÍNEZ Transcribe Date/Time: Oct 26 2024 4:06P Dictated by : ALONDRA MCCAIN MD This examination was interpreted and the report reviewed and electronically signed by: ALONDRA MCCAIN MD on Oct 26 2024 10:51PM EST [id number] [facility] PET+CT Guidance for localiza tion of tumor of Skull base to mid-thigh-- W [id number] Karyn 10-26-2024 * * *Final Report* * * DATE OF EXAM: Oct 26 2024 10:54AM [facility] 0063 - NM PET/CT SKULL-THIGH SUBQ / PROCEDURE REASON: multiple diagnoses * * * * Physician Interpretation * * * * EXAMINATION: BODY FDG PET-CT CLINICAL HISTORY: Breast cancer EXAM CATEGORY: Subsequent treatment strategy. TECHNIQUE: Radiopharmaceutical was administered intravenously followed by PET imaging from the eyes to thighs. Free breathing, low dose CT of the same body region was acquired without IV contrast for attenuation correction and anatomic localization. Unenhanced imaging is limited for the evaluation of some pathology and the acquired CT was not designed to produce diagnostic CT scan quality. Physiologic/non-patholo gic uptake in some body regions could confound or obscure some pathology. * CT Dose-Length Product (DLP): 353 mGy*cm * CT Dose Reduction Employed: Yes * Blood glucose: 115 mg/dL * Injection site: Right Forearm-Antecubital * Injected activity: 10.9 mCi * Uptake Time: 58 minutes * Radiopharmaceutical: K79-Wlntjmvyzkwyaeffoq (FDG) COMPARISON: PET/CT 06/30/2024 RESULT: REFERENCES: FDG uptake is used as a surrogate marker for glucose metabolism. All reported standardized uptake values represent maximum SUV (SUVmax) per body weight, unless otherwise specified. SUV reference values, as follows: * Blood Pool (Descending Aorta): SUVmax 2.7 * Background Liver: SUVmax 3.6; SUVmean 2.8 Localizer Images: No additional findings. HEAD AND NECK: Head: No radiotracer avid lesion or mass effect in the imaged intracranial compartment. Aerodigestive Tract: No radiotracer avid lesion. Lymph Nodes: No radiotracer avid lymphadenopathy. Neck Soft Tissues: No radiotracer avid thyroid nodule. CHEST: Lungs & Pleura: No radiotracer avid mass, nodule, or consolidation. No pleural effusion. Lymph Nodes: Hypermetabolic right axillary lymph nodes measuring up to (max SUV 5.5, about 0.8 cm increased from prior max SUV 3.9). Another mildly hypermetabolic right axillary lymph node (Max SUV 3.8 measures 0.5 cm). Mediastinum: No radiotracer avid mass. Cardiovascular: Blood pool activity. No pericardial effusion. Normal heart size. Chest Wall: No radiotracer avid soft tissue lesion. Left mastectomy with mild diffuse uptake in the left chest wall (max SUV 2.7). ABDOMEN AND PELVIS: Hepatobiliary: No radiotracer avid lesion. No measurable mass. Cholelithiasis. Spleen: No radiotracer avid lesion. No splenomegaly. Pancreas: No radiotracer avid lesion. Adrenals: No radiotracer avid nodule. Urinary Tract: Physiologic radiotracer excretion in the renal collecting systems and urinary bladder. No hydronephrosis. Right renal calculus. GI Tract: No radiotracer avid lesion. No bowel dilation. Peritoneum: No radiotracer avid lesion. No ascites. Lymph Nodes: No radiotracer avid lymphadenopathy. Vasculature: Blood pool activity. Pelvic Organs: No radiotracer avid lesion. MUSCULOSKELETAL: Bones: No radiotracer avid lesion. No lytic or sclerotic lesion. Right hip prosthesis. Soft Tissues: No radiotracer avid lesion. Mild activity with subcutaneous stranding in the gluteal regions is likely inflammatory. IMPRESSION Primary: Postsurgical changes. No FDG avid neoplasm Merlyn: Hypermetabolic right axillary lymph nodes. Increased from prior PET scan Metastases: No metabolically active metastases. Script Worker: PSCMark Anthony Transcribe Date/Time: Oct 26 2024 4:06P Dictated by : ALONDRA MCCAIN MD This examination was interpreted and the report reviewed and electronically signed by: ALONDRA MCCAIN MD on Oct 26 2024 10:51PM [facility] RADIOLOGY Provider, [facility] - 10/26/2024 * * *Final Report* * * DATE OF EXAM: Oct 26 2024 10:54AM MDP 0063 - NM PET/CT SKULL-THIGH SUBQ / PROCEDURE REASON: multiple diagnoses * * * * Physician Interpretation * * * * EXAMINATION: BODY FDG PET-CT CLINICAL HISTORY: Breast cancer EXAM CATEGORY: Subsequent treatment strategy. TECHNIQUE: Radiopharmaceutical was administered intravenously followed by PET imaging from the eyes to thighs. Free breathing, low dose CT of the same body region was acquired without IV contrast for attenuation correction and anatomic localization. Unenhanced imaging is limited for the evaluation of some pathology and the acquired CT was not designed to produce diagnostic CT scan quality. Physiologic/non-patholo gic uptake in some body regions could confound or obscure some pathology. * CT Dose-Length Product (DLP): 353 mGy*cm * CT Dose Reduction Employed: Yes * Blood glucose: 115 mg/dL * Injection site: Right Forearm-Antecubital * Injected activity: 10.9 mCi * Uptake Time: 58 minutes * Radiopharmaceutical: [id number] (FDG) COMPARISON: PET/CT 06/30/2024 RESULT: REFERENCES: FDG uptake is used as a surrogate marker for glucose metabolism. All reported standardized uptake values represent maximum SUV (SUVmax) per body weight, unless otherwise specified. SUV reference values, as follows: * Blood Pool (Descending Aorta): SUVmax 2.7 * Background Liver: SUVmax 3.6; SUVmean 2.8 Localizer Images: No additional findings. HEAD AND NECK: Head: No radiotracer avid lesion or mass effect in the imaged intracranial compartment. Aerodigestive Tract: No radiotracer avid lesion. Lymph Nodes: No radiotracer avid lymphadenopathy. Neck Soft Tissues: No radiotracer avid thyroid nodule. CHEST: Lungs & Pleura: No radiotracer avid mass, nodule, or consolidation. No pleural effusion. Lymph Nodes: Hypermetabolic right axillary lymph nodes measuring up to (max SUV 5.5, about 0.8 cm increased from prior max SUV 3.9). Another mildly hypermetabolic right axillary lymph node (Max SUV 3.8 measures 0.5 cm). Mediastinum: No radiotracer avid mass. Cardiovascular: Blood pool activity. No pericardial effusion. Normal heart size. Chest Wall: No radiotracer avid soft tissue lesion. Left mastectomy with mild diffuse uptake in the left chest wall (max SUV 2.7). ABDOMEN AND PELVIS: Hepatobiliary: No radiotracer avid lesion. No measurable mass. Cholelithiasis. Spleen: No radiotracer avid lesion. No splenomegaly. Pancreas: No radiotracer avid lesion. Adrenals: No radiotracer avid nodule. Urinary Tract: Physiologic radiotracer excretion in the renal collecting systems and urinary bladder. No hydronephrosis. Right renal calculus. GI Tract: No radiotracer avid lesion. No bowel dilation. Peritoneum: No radiotracer avid lesion. No ascites. Lymph Nodes: No radiotracer avid lymphadenopathy. Vasculature: Blood pool activity. Pelvic Organs: No radiotracer avid lesion. MUSCULOSKELETAL: Bones: No radiotracer avid lesion. No lytic or sclerotic lesion. Right hip prosthesis. Soft Tissues: No radiotracer avid lesion. Mild activity with subcutaneous stranding in the gluteal regions is likely inflammatory. IMPRESSION Primary: Postsurgical changes. No FDG avid neoplasm Merlyn: Hypermetabolic right axillary lymph nodes. Increased from prior PET scan Metastases: No metabolically active metastases. 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-- W [id number]-[id number] IVOrdered By: Ccf Provider on 10-26-2024 [facility] UA DIP, URINE (POC)on 2024 BILIRUBIN UA (POCT) Negative Negative [facility] CLARITY UA (POCT) Slightly Cloudy Cl [facility] COLOR UA (POCT) Yellow [facility] GLUCOSE UA (POCT) 500 mg/dL Abnormal Negative [facility] Hemoglobin Ql (U) Large Abnormal Negative [facility] Interpretation and review of laboratory results Abnormal [facility] KETONE UA (POCT) Negative Negative mg/dL [facility] LEUKOCYTES UA (POCT) Small Abnormal Negative [facility]) Negative Negative [facility] PH UA (POCT) 5.5 4.5 - 8.0 [facility] Protein Ql (U) 30 mg/dL Abnormal Negative [facility] SPECIFIC GRAVITY UA (POCT) 1.02 1.005 - 1.030 [facility] UROBILINOGEN UA (POCT) 0.2 Noemy l E.U./dL [facility] Location:[address], [place], [place], [id number] [place] [address] POINT OF CARE [facility] CNTHERAPYon 10-22-2024 CNTHERAPY OT/PT/Speech Visit (PNORCA) PAT SORTO ([id number]) 1960 F UPA Date Time Provider Department 10/22/24 2:15 PM NOE JACKSONOH Date Time Provider Department Center 10/22/2024 2:15 PM [id number], MIRANDA [employer] [facility] N Reason for Visit: Physical Therapy [503] Primary Visit Diagnosis:Lymphedema of left arm [I89.0] Allergies As of Date: 10/22/2024 Noted Allergy Reaction AMOXICILLIN 11/15/2022 2 - Rash Comments: rash arms trunk neck face, itching Chills Tolerates Ancef Date Reviewed: 10/15/2024 Reviewed by: Abigail Mathews OCCA - Fully Assessed Prescriptions as of 10/22/2024 - doxycycline monohydrate (MONODOX) 100 mg capsule Take 1 capsule by mouth two times a day for 10 days. - insulin glargine (LANTUS SOLOSTAR U-100 INSULIN) 100 unit/mL (3 mL) Inject 30 Units subcutaneously every morning. - DROPLET PEN NEEDLE 31 gauge x 3/16 1 each two times a day. - hydroCHLOROthiazide 25 mg tablet Take 25 mg by mouth once daily. - amLODIPine (NORVASC) 5 mg tablet Take 5 mg by mouth once daily. - traZODone (DESYREL) 50 mg tablet Take 1 tablet by mouth daily at bedtime. - metoprolol succinate ER (TOPROL XL) 25 mg 24 hr tablet take 1 tablet by mouth once daily - exemestane (AROMASIN) 25 mg tablet Take 1 tablet by mouth once daily. - losartan (COZAAR) 100 mg tablet Take 1 tablet by mouth every afternoon. - ursodiol (LEENA) 250 mg tablet Take 250 mg by mouth two times a day. - everolimus, antineoplastic, (AFINITOR) 10 mg tablet TAKE 1 TABLET ONCE DAILY - Sodium Fluoride, Dental Rinse, 0.2 % SWISH 10 ML BY MOUTH THEN SPIT ONCE WEEKLY - diphenhydrAMINE-Acetami nophen (TYLENOL PM EXTRA STRENGTH) 25-500 mg tab Take 1 tablet by mouth at bedtime as needed. - AquacueTOUCH ULTRA PLUS TEST strp 1 Each two times a day. E11.65; No insulin - Lancets Use with blood glucose test two times a day. Insulin Dep? No - blood sugar diagnostic (BLOOD GLUCOSE TEST) test strip Use with blood glucose test two times a day. Insulin Dep? No - aspirin, enteric coated (ASPIRIN, ENTERIC COATED) 81 mg EC tablet Take 81 mg by mouth once daily. - pantoprazole DR (PROTONIX) 40 mg tablet Take 40 mg by mouth daily before breakfast. - ascorbic acid, vitamin C, (VITAMIN C) 500 mg tablet Take 500 mg by mouth once daily. - alpha tocopheryl acetate (VITAMIN E) 400 unit capsule Take 400 Units by mouth once daily. - cyanocobalamin (VITAMIN B-12) 1,000 mcg tab Take 500 mcg by mouth once daily. - VITAMIN D 50,000 unit capsule 1 capsule one time a week. - CALCIUM CARBONATE (CALCIUM 500 ORAL) Take 1 tablet by mouth once daily. [facility] CNTHERAPYon 10-21-2024 CNTHERAPY OT/PT/Speech Visit (PNORCA) PAT SORTO ([id number]) 1960 F UPA Date Time Provider Department 10/21/24 3:45 PM [facility] Date Time Provider Department Center 10/21/2024 3:45 PM [id number], MIRANDA [facility] N Reason for Visit: Physical Therapy [503] Primary Visit Diagnosis:Lymphedema of left arm [I89.0] Allergies As of Date: 10/21/2024 Noted Allergy Reaction AMOXICILLIN 11/15/2022 2 - Rash Comments: rash arms trunk neck face, itching Chills Tolerates Ancef Date Reviewed: 10/15/2024 Reviewed by: Abigail Mathews OCCA - Fully Assessed Prescriptions as of 10/21/2024 - doxycycline monohydrate (MONODOX) 100 mg capsule Take 1 capsule by mouth two times a day for 10 days. - insulin glargine (LANTUS SOLOSTAR U-100 INSULIN) 100 unit/mL (3 mL) Inject 30 Units subcutaneously every morning. - DROPLET PEN NEEDLE 31 gauge x 3/16 1 each two times a day. - hydroCHLOROthiazide 25 mg tablet Take 25 mg by mouth once daily. - amLODIPine (NORVASC) 5 mg tablet Take 5 mg by mouth once daily. - traZODone (DESYREL) 50 mg tablet Take 1 tablet by mouth daily at bedtime. - metoprolol succinate ER (TOPROL XL) 25 mg 24 hr tablet take 1 tablet by mouth once daily - exemestane (AROMASIN) 25 mg tablet Take 1 tablet by mouth once daily. - losartan (COZAAR) 100 mg tablet Take 1 tablet by mouth every afternoon. - ursodiol (LEENA) 250 mg tablet Take 250 mg by mouth two times a day. - everolimus, antineoplastic, (AFINITOR) 10 mg tablet TAKE 1 TABLET ONCE DAILY - Sodium Fluoride, Dental Rinse, 0.2 % SWISH 10 ML BY MOUTH THEN SPIT ONCE WEEKLY - diphenhydrAMINE-Acetami nophen (TYLENOL PM EXTRA STRENGTH) 25-500 mg tab Take 1 tablet by mouth at bedtime as needed. - Vputi ULTRA PLUS TEST strp 1 Each two times a day. E11.65; No insulin - Lancets Use with blood glucose test two times a day. Insulin Dep? No - blood sugar diagnostic (BLOOD GLUCOSE TEST) test strip Use with blood glucose test two times a day. Insulin Dep? No - aspirin, enteric coated (ASPIRIN, ENTERIC COATED) 81 mg EC tablet Take 81 mg by mouth once daily. - pantoprazole DR (PROTONIX) 40 mg tablet Take 40 mg by mouth daily before breakfast. - ascorbic acid, vitamin C, (VITAMIN C) 500 mg tablet Take 500 mg by mouth once daily. - alpha tocopheryl acetate (VITAMIN E) 400 unit capsule Take 400 Units by mouth once daily. - cyanocobalamin (VITAMIN B-12) 1,000 mcg tab Take 500 mcg by mouth once daily. - VITAMIN D 50,000 unit capsule 1 capsule one time a week. - CALCIUM CARBONATE (CALCIUM 500 ORAL) Take 1 tablet by mouth once daily. [facility] CNOVon 10-15-[address] [facility] CNTHERAPYon 10-15-2024 CNTHERAPY OT/PT/Speech Visit (PNORCA) PAT SORTO ([id number]) 1960 F UPA Date Time Provider Department 10/15/24 10:30 AM NOE JACKSON PNORCA Date Time Provider Department Center 10/15/2024 10:30 AM [id number], MIRANDA RUST N Reason for Visit: Physical Therapy [503] Primary Visit Diagnosis:Lymphedema of left arm [I89.0] Allergies As of Date: 10/15/2024 Noted Allergy Reaction AMOXICILLIN 11/15/2022 2 - Rash Comments: rash arms trunk neck face, itching Chills Tolerates Ancef Date Reviewed: 10/15/2024 Reviewed by: Abigail Mathews OCCA - Fully Assessed Prescriptions as of 10/15/2024 - doxycycline monohydrate (MONODOX) 100 mg capsule Take 1 capsule by mouth two times a day for 10 days. - insulin glargine (LANTUS SOLOSTAR U-100 INSULIN) 100 unit/mL (3 mL) Inject 30 Units subcutaneously every morning. - DROPLET PEN NEEDLE 31 gauge x 3/16 1 each two times a day. - hydroCHLOROthiazide 25 mg tablet Take 25 mg by mouth once daily. - amLODIPine (NORVASC) 5 mg tablet Take 5 mg by mouth once daily. - traZODone (DESYREL) 50 mg tablet Take 1 tablet by mouth daily at bedtime. - metoprolol succinate ER (TOPROL XL) 25 mg 24 hr tablet take 1 tablet by mouth once daily - exemestane (AROMASIN) 25 mg tablet Take 1 tablet by mouth once daily. - losartan (COZAAR) 100 mg tablet Take 1 tablet by mouth every afternoon. - ursodiol (LEENA) 250 mg tablet Take 250 mg by mouth two times a day. - everolimus, antineoplastic, (AFINITOR) 10 mg tablet TAKE 1 TABLET ONCE DAILY - Sodium Fluoride, Dental Rinse, 0.2 % SWISH 10 ML BY MOUTH THEN SPIT ONCE WEEKLY - diphenhydrAMINE-Acetami nophen (TYLENOL PM EXTRA STRENGTH) 25-500 mg tab Take 1 tablet by mouth at bedtime as needed. - AquacueTOUCH ULTRA PLUS TEST strp 1 Each two times a day. E11.65; No insulin - Lancets Use with blood glucose test two times a day. Insulin Dep? No - blood sugar diagnostic (BLOOD GLUCOSE TEST) test strip Use with blood glucose test two times a day. Insulin Dep? No - aspirin, enteric coated (ASPIRIN, ENTERIC COATED) 81 mg EC tablet Take 81 mg by mouth once daily. - pantoprazole DR (PROTONIX) 40 mg tablet Take 40 mg by mouth daily before breakfast. - ascorbic acid, vitamin C, (VITAMIN C) 500 mg tablet Take 500 mg by mouth once daily. - alpha tocopheryl acetate (VITAMIN E) 400 unit capsule Take 400 Units by mouth once daily. - cyanocobalamin (VITAMIN B-12) 1,000 mcg tab Take 500 mcg by mouth once daily. - VITAMIN D 50,000 unit capsule 1 capsule one time a week. - CALCIUM CARBONATE (CALCIUM 500 ORAL) Take 1 tablet by mouth once daily. [facility] CNOVon 10-14-2024 [facility] CNOVon 10-13-2024 [facility] CNTHERAPYon 10-13-2024 CNTHERAPY OT/PT/Speech Visit (PNORCA) PAT SORTO ([id number]) 1960 F UPA Date Time Provider Department 10/13/24 9:45 AM NOE JACKSON Date Time Provider Department Center 10/13/2024 9:45 AM [id number], MIRANDA RUST N Reason for Visit: Physical Therapy [503] Primary Visit Diagnosis:Lymphedema of left arm [I89.0] Allergies As of Date: 10/13/2024 Noted Allergy Reaction AMOXICILLIN 11/15/2022 2 - Rash Comments: rash arms trunk neck face, itching Chills Tolerates Ancef Date Reviewed: 10/07/2024 Reviewed by: Tatianna Crook RPh - Fully Assessed Prescriptions as of 10/13/2024 - insulin glargine (LANTUS SOLOSTAR U-100 INSULIN) 100 unit/mL (3 mL) Inject 30 Units subcutaneously every morning. - DROPLET PEN NEEDLE 31 gauge x 3/16 1 each two times a day. - hydroCHLOROthiazide 25 mg tablet Take 25 mg by mouth once daily. - amLODIPine (NORVASC) 5 mg tablet Take 5 mg by mouth once daily. - traZODone (DESYREL) 50 mg tablet Take 1 tablet by mouth daily at bedtime. - metoprolol succinate ER (TOPROL XL) 25 mg 24 hr tablet take 1 tablet by mouth once daily - exemestane (AROMASIN) 25 mg tablet Take 1 tablet by mouth once daily. - losartan (COZAAR) 100 mg tablet Take 1 tablet by mouth every afternoon. - ursodiol (LEENA) 250 mg tablet Take 250 mg by mouth two times a day. - everolimus, antineoplastic, (AFINITOR) 10 mg tablet TAKE 1 TABLET ONCE DAILY - Sodium Fluoride, Dental Rinse, 0.2 % SWISH 10 ML BY MOUTH THEN SPIT ONCE WEEKLY - diphenhydrAMINE-Acetami nophen (TYLENOL PM EXTRA STRENGTH) 25-500 mg tab Take 1 tablet by mouth at bedtime as needed. - ONETOUCH ULTRA PLUS TEST strp 1 Each two times a day. E11.65; No insulin - Lancets Use with blood glucose test two times a day. Insulin Dep? No - blood sugar diagnostic (BLOOD GLUCOSE TEST) test strip Use with blood glucose test two times a day. Insulin Dep? No - aspirin, enteric coated (ASPIRIN, ENTERIC COATED) 81 mg EC tablet Take 81 mg by mouth once daily. - pantoprazole DR (PROTONIX) 40 mg tablet Take 40 mg by mouth daily before breakfast. - ascorbic acid, vitamin C, (VITAMIN C) 500 mg tablet Take 500 mg by mouth once daily. - alpha tocopheryl acetate (VITAMIN E) 400 unit capsule Take 400 Units by mouth once daily. - cyanocobalamin (VITAMIN B-12) 1,000 mcg tab Take 500 mcg by mouth once daily. - VITAMIN D 50,000 unit capsule 1 capsule one time a week. - CALCIUM CARBONATE (CALCIUM 500 ORAL) Take 1 tablet by mouth once daily. Sluice Tender: Addendum Therapy (PT/OT/Speech/Resp) ID: [id number] 10/13/2024 10:26 AM Author: NOE JACKSON Signed by NOE JACKSON BACK WEDGER on 10/13/2024 at 10:26 AM * * * This document replaces document [id number] * * * Document text: Program_ID:[id number] Access Code: [email or web address] URL: [email or web address]/ Date: 10-13-2024 Prepared By: Bobbi Vanegas Program Notes Exercises - Supine Chest Stretch with Elbows Bent - 1 x daily - 7 x weekly - sets - 3-5 reps - Standing Single Arm Shoulder Abduction Stretch on Wall - 1 x daily - 7 x weekly - sets - 3-5 reps - Standing Single Arm Shoulder Abduction Stretch on Wall - 1 x daily - 7 x weekly - sets - 3-5 reps - Single Arm Doorway Pec Stretch at 90 Degrees Abduction - 1 x daily - 7 x weekly - 1 sets - 3 reps - Doorway Pec Stretch at 60 Degrees Abduction with Arm Straight - 1 x daily - 7 x weekly - 1 sets - 3 reps [facility] THERAPY NTon 10-13-2024 THERAPY NT HNO ID: [id number] Author: NOE JACKSON PTA Service: ? Author Type: Reinforcer Type: Therapy (PT/OT/Speech/Resp) Filed: 10/13/2024 10:26 Note Text: Program_ID:[id number] Access Code: [email or web address] URL: [email or web address]/ Date: 10-13-2024 Prepared By: Bobbi Vanegas Program Notes Exercises - Supine Chest Stretch with Elbows Bent - 1 x daily - 7 x weekly - sets - 3-5 reps - Standing Single Arm Shoulder Abduction Stretch on Wall - 1 x daily - 7 x weekly - sets - 3-5 reps - Standing Single Arm Shoulder Abduction Stretch on Wall - 1 x daily - 7 x weekly - sets - 3-5 reps - Single Arm Doorway Pec Stretch at 90 Degrees Abduction - 1 x daily - 7 x weekly - 1 sets - 3 reps - Doorway Pec Stretch at 60 Degrees Abduction with Arm Straight - 1 x daily - 7 x weekly - 1 sets - 3 reps [facility] [id number] 10-12-2024 [id number] HNO ID: [id number] Author: MILAGROS BROWN PT Service: ? Author Type: Physical Therapist Type: [id number] Filed: 10/12/2024 07:20 Note Text: [facility] Physical Therapy Plan of Care Certification Patient Name: Pat Sorto : 1960 F #: [id number] Date: 10/07/2024 To: Micki Butler APRN.PLATEN GRINDER From Therapist: Milagros Brown PT RE: Patient Certification/ Recertification Your review, approval and electronic signature are required in order to comply with Payor: MEDICARE / Plan: MEDICARE A AND B / Product Type: Medicare / regulations. The identified Physical Therapy PLAN OF CARE for the patient is as follows: I89.0 Lymphedema of left arm (primary encounter diagnosis) PLAN OF CARE UPDATE: Assessment: Pat Sorto demonstrates no improvement in swelling with volume of left arm increased. The patient has no goals achieved at this time. Patient continues to present with impairments in edema management and symptom management that interfere with gripping, pulling, twisting . Current prognosis is Fair due to: chronic nature of impairments, clinical presentation . Measurements of left arm volume at 4005.02, increased from initial eval measurements at 3376.23. Will look into pump. The patient will benefit from continued skilled therapy services to meet the updated goals for this plan of care as noted below. Goals reviewed 10/07/24 Goals for Episode of Care: established 08/27/24 Patient / family knowledgeable re: all pertinent aspects of CDT Ongoing Patient / family independent with donning / doffing compression garment and proper wearing schedule and care of garment Ongoing Patient / family independent with home exercise program Ongoing Patient will decrease circumferential measurements by 1-2 cm in the following areas: left UE and hand for decreased recurrence of infection, improved mobility, improved range of motion and allow appropriate fit in compressive garment . Ongoing Patient Goals: Ease swelling Time Frame for Goals and Treatment : 11/09/24 Patient Goals: Ease swelling Planned Interventions, Frequency, and Duration: 2x/week, 4 weeks Total Number of Visits Planned: 8 (completed 5 visits as of today, continue for 8 more) Patient to be seen for Therapeutic exercise (85782), Manual therapy (47374), Self-retirement management (22558), Patient/Family/Caregive r Education, Therapeutic activities (07699) (lymphedema program) PLAN FOR NEXT VISIT: lymphedema program For further details regarding this patient refer to the Physical Therapy electronically documented visit dated 10/07/2024. Provider Attestation I have reviewed the treatment plan for Pat Angelita Sorto, [facility]# [id number] for the period of 10/07/24 -- 12/07/24, established on 10/07/2024. Signature certifies the need for therapy services. [facility] CNPNon 10-12-2024 CNPN Normal [facility] Bacteria Ur Culton 5 Bacteria identified Cx Nom (U) Abnormal [facility] Comment on above: Performed By: #### 6 30-4, 89293-7 ####[facility] LABCLIA [id number] [address] [place] CNTHERAPYon 10-07-2024 CNTHERAPY OT/PT/Speech Visit (PNORCA) PAT SORTO ([id number]) 1960 F UPA Date Time Provider Department 10/07/24 10:15 AM MILAGROS BROWN PN[facility] Date Time Provider Department Center 10/07/2024 10:15 AM [id number], CAROL A PNOR[facility] N Reason for Visit: PT Progress Note [1596] Primary Visit Diagnosis:Lymphedema of left arm [I89.0] Allergies As of Date: 10/07/2024 Noted Allergy Reaction AMOXICILLIN 11/15/2022 2 - Rash Comments: rash arms trunk neck face, itching Chills Tolerates Ancef Date Reviewed: 10/07/2024 Reviewed by: Tatianna Crook RP - Fully Assessed Prescriptions as of 10/12/2024 - insulin glargine (LANTUS SOLOSTAR U-100 INSULIN) 100 unit/mL (3 mL) Inject 30 Units subcutaneously every morning. - DROPLET PEN NEEDLE 31 gauge x 3/16 1 each two times a day. - hydroCHLOROthiazide 25 mg tablet Take 25 mg by mouth once daily. - amLODIPine (NORVASC) 5 mg tablet Take 5 mg by mouth once daily. - traZODone (DESYREL) 50 mg tablet Take 1 tablet by mouth daily at bedtime. - metoprolol succinate ER (TOPROL XL) 25 mg 24 hr tablet take 1 tablet by mouth once daily - exemestane (AROMASIN) 25 mg tablet Take 1 tablet by mouth once daily. - losartan (COZAAR) 100 mg tablet Take 1 tablet by mouth every afternoon. - ursodiol (LEENA) 250 mg tablet Take 250 mg by mouth two times a day. - everolimus, antineoplastic, (AFINITOR) 10 mg tablet TAKE 1 TABLET ONCE DAILY - Sodium Fluoride, Dental Rinse, 0.2 % SWISH 10 ML BY MOUTH THEN SPIT ONCE WEEKLY - diphenhydrAMINE-Acetami nophen (TYLENOL PM EXTRA STRENGTH) 25-500 mg tab Take 1 tablet by mouth at bedtime as needed. - AquacueTOUCH ULTRA PLUS TEST strp 1 Each two times a day. E11.65; No insulin - Lancets Use with blood glucose test two times a day. Insulin Dep? No - blood sugar diagnostic (BLOOD GLUCOSE TEST) test strip Use with blood glucose test two times a day. Insulin Dep? No - aspirin, enteric coated (ASPIRIN, ENTERIC COATED) 81 mg EC tablet Take 81 mg by mouth once daily. - pantoprazole DR (PROTONIX) 40 mg tablet Take 40 mg by mouth daily before breakfast. - ascorbic acid, vitamin C, (VITAMIN C) 500 mg tablet Take 500 mg by mouth once daily. - alpha tocopheryl acetate (VITAMIN E) 400 unit capsule Take 400 Units by mouth once daily. - cyanocobalamin (VITAMIN B-12) 1,000 mcg tab Take 500 mcg by mouth once daily. - VITAMIN D 50,000 unit capsule 1 capsule one time a week. - CALCIUM CARBONATE (CALCIUM 500 ORAL) Take 1 tablet by mouth once daily. Normal [facility] Comprehensive metabolic 2000 panelon 10-07-2024 Albumin [Mass/Vol] 3.6 g/dL Low 3.9-4.9 [facility] Comment on above: Order Comment: Speci men Type: BLOOD SPECIMENOrdering Facility: [facility] Address: [address] [place] [address] Performed By: #### 2 4323-8 ####[facility] MILLWNCLIA [id number] [place] [address] [place] ALP [Catalytic activity/Vol] 57 U/L Normal 34-123 [facility] Comment on above: Order Comment: Speci men Type: BLOOD SPECIMENOrdering Facility: [facility] Address: [address] [place] [address] Performed By: #### 2 4323-8 ####[facility]PITALWNCLIA [id number] [place] [address] [place] ALT [Catalytic activity/Vol] 10 U/L Normal 7-38 [facility] Comment on above: Order Comment: Speci men Type: BLOOD SPECIMENOrdering Facility: [facility] Address: [address] [place] [address] Performed By: #### 2 4323-8 ####[facility]OSPITALWNCLIA [id number] [place] [address] [place] Anion gap [Moles/Vol] 12 mmol/L Normal 8-15 [facility] Comment on above: Order Comment: Speci men Type: BLOOD SPECIMENOrdering Facility: [facility] Address: [address] [place] [address] Performed By: #### 2 4323-8 ####[facility] MILLTOWNCLIA [id number] [place] [address] [place] AST [Catalytic activity/Vol] 19 U/L Normal 13-35 [facility] Comment on above: Order Comment: Speci men Type: BLOOD SPECIMENOrdering Facility: [facility] Address: [address] [place] [address] Performed By: #### 2 4323-8 ####[facility] SCOTTASHAA [id number] [place] [address] [place] Bilirubin [Mass/Vol] 0.2 mg/dL Normal 0.2-1.3 [facility] Comment on above: Order Comment: Speci men Type: BLOOD SPECIMENOrdering Facility: [facility] Address: [address] [place] [address] Performed By: #### 2 4323-8 ####[facility]IAL[facility] HOSPITALROMELIA [id number] [place] [address] [place] Calcium [Mass/Vol] 9.6 mg/dL Normal 8.5-10.2 [facility] Comment on above: Order Comment: Speci men Type: BLOOD SPECIMENOrdering Facility: [facility] Address: [address] [place] [address] Performed By: #### 2 4323-8 ####[facility] MAURYLEJUNIORNIA [id number] [place] [address] [place] Chloride [Moles/Vol] 103 mmol/L Normal 98-107 [facility] Comment on above: Order Comment: Speci men Type: BLOOD SPECIMENOrdering Facility: [facility] Address: [address] [place] [address] Performed By: #### 2 4323-8 ####[facility]PITALWNCLIA [id number] [place] [address] [place] CO2 [Moles/Vol] 24 mmol/L Normal 22-30 [facility] Comment on above: Order Comment: Speci men Type: BLOOD SPECIMENOrdering Facility: [facility] Address: [address] [place] [address] Performed By: #### 2 4323-8 ####[facility]THNCLI [id number] [place] [address] [place] Creatinine [Mass/Vol] 1.87 mg/dL High 0.58-0.96 [facility] Comment on above: Order Comment: Speci leah Type: BLOOD SPECIMENOrdering Facility: [facility] Address: [address] [place] [address] Performed By: #### 2 4323-8 ####[facility] [id number] [place] [address] [place] Creatinine and Glomerular filtration rate.predicted panel (S/P/Bld) 30 mL/min/1.73m??? Low >=60 [facility] Comment on above: Order Comment: [facility] Type: BLOOD SPECIMENOrdering Facility: [facility] Address: [address] [place] [address] Result Comment: Sherlyn mated Glomerular Filtration Rate (eGFR) is calculated using the 2020 CKD-EPI creatinine equation. This equation utilizes serum creatinine, sex, and age as parameters. The creatinine assay has traceable calibration to isotope dilution-mass spectrometry. Refer to KDIGO guidelines for clinical interpretation. In patients with unstable renal function, e.g. those with acute kidney injury, the eGFR may not accurately reflect actual GFR. Performed By: #### 2 4323-8 ####[facility] [id number] [place] [address] [place] Glucose [Mass/Vol] 82 mg/dL Normal 74-99 [facility] Comment on above: Order Comment: Speci men Type: BLOOD SPECIMENOrdering Facility: [facility] Address: [address] [place] [address] Result Comment: The [place] Diabetes Association (ADA) provides guidance for cutoff values for fasting glucose and random glucose. The ADA defines fasting as no caloric intake for at least 8 hours. Fasting plasma glucose results between 100 to 125 mg/dL indicate increased risk for diabetes (prediabetes).Fasting plasma glucose results greater than or equal to 126 mg/dL meet the criteria for diagnosis of diabetes. In the absence of unequivocal hyperglycemia, results should be confirmed by repeat testing. In a patient with classic symptoms of hyperglycemia or hyperglycemic crisis, random plasma glucose results greater than or equal to 200 mg/dL meet the criteria for diagnosis of diabetes.Reference: Standards of Medical Care in Diabetes 2016, [place] Diabetes Association. Diabetes Care. 2016.39(Suppl 1). Performed By: #### 2 4323-8 ####[facility] MILLTOWNCLIA [id number] [place] [address] [place] Potassium [Moles/Vol] 3.6 mmol/L Low 3.7-5.1 [facility] Comment on above: Order Comment: Speci men Type: BLOOD SPECIMENOrdering Facility: [facility] Address: [address] [place] [address] Performed By: #### 2 4323-8 ####[facility] NORTHCARLOSLIA [id number] [place] [address] [place] Protein [Mass/Vol] 6.8 g/dL Normal 6.3-8.0 [facility] Comment on above: Order Comment: Kourtneyi leah Type: BLOOD SPECIMENOrdering Facility: [facility] Address: [address] [place] [address] Performed By: #### 2 4323-8 ####[facility] NORTHCARLOSLIA [id number] [place] [address] [place] Sodium [Moles/Vol] 139 mmol/L Normal 136-144 [facility] Comment on above: Order Comment: Speci men Type: BLOOD SPECIMENOrdering Facility: [facility] Address: [address] [place] [address] Performed By: #### 2 4323-8 ####[facility]PITALWNCLIA [id number] [place] [address] [place] Urea nitrogen [Mass/Vol] 50 mg/dL High 7-21 [facility] Comment on above: Order Comment: Speci men Type: BLOOD SPECIMENOrdering Facility: [facility] Address: [address] [place] [address] Performed By: #### 2 4323-8 ####[facility] SHARAD LAINEZ [id number] [place] [address] [place] Urinalysis complete panel (U )on 10-07-2024 BACTERIA UL 1320.6 uL High Negative [facility] Comment on above: Order Comment: Speci men Type: URINE SPECIMENOrdering Facility: [facility] Address: [address] [place] [address] Performed By: #### 6 30-4, 66873-9 ####[facility] LABCLIA [id number] [place] [address] [place] Bilirubin Ql (U) Negative Normal Negative [facility] Comment on above: Order Comment: Speci men Type: URINE SPECIMENOrdering Facility: [facility] Address: [address] [place] [address] Performed By: #### 6 30-4, 82840-9 ####[facility] LABCLIA [id number] [place] [address] [place] Clarity (Unsp spec) Clear Normal Clear [facility] Comment on above: Order Comment: Speci men Type: URINE SPECIMENOrdering Facility: [facility] Address: [address] [place], [place] [address] Performed By: #### 6 30-4, 26379-5 ####[facility] LABCLIA [id number] [place] [id number] [place] Color (U) Yellow Normal Yellow [facility] Comment on above: Order Comment: Speci men Type: URINE SPECIMENOrdering Facility: [facility] Address: [address] [place], [place] [address] Performed By: #### 6 30-4, 98721-7 ####[facility] LABCLIA [id number] [place] [address] [place] Epithelial cells LM.HPF (Urine sed) [#/Area] None Seen Normal [facility] Comment on above: Order Comment: Speci men Type: URINE SPECIMENOrdering Facility: [facility] Address: [address] [place] [address] Performed By: #### 6 30-4, 02536-7 ####[facility] LABCLIA [id number] [place] Glucose Test strip (U) [Mass/Vol] Negative Normal Negative [facility] Comment on above: Order Comment: Speci men Type: URINE SPECIMENOrdering Facility: [facility] Address: [address] [place] [address] Performed By: #### 6 30-4, 82948-9 ####[facility] LABCLIA [id number] [place] [address] [place] Hemoglobin Ql (U) Trace Abnormal Negative [facility] Comment on above: Order Comment: Speci men Type: URINE SPECIMENOrdering Facility: [facility] Address: [address] [place] [address] Performed By: #### 6 30-4, 84657-6 ####[facility] LABCLIA [id number] [place] [address] [place] Hyaline casts (Urine sed) [#/Area] 1-3 /LPF Abnormal 0 /LPF [facility] Comment on above: Order Comment: Speci men Type: URINE SPECIMENOrdering Facility: [facility] Address: [address] [place] [address] Performed By: #### 6 30-4, 31705-2 ####[facility] LABCLIA [id number] [place] [id number] [place] Ketones Ql (U) Negative Normal Negative [facility] Comment on above: Order Comment: Speci men Type: URINE SPECIMENOrdering Facility: [facility] Address: [address] [place] [address] Performed By: #### 6 30-4, 21266-9 ####[facility] LABCLIA [id number] [address], [facility] [place] Leukocyte esterase Test strip Ql (U) 2+ Abnormal Negative [facility] Comment on above: Order Comment: Speci men Type: URINE SPECIMENOrdering Facility: [facility] Address: [address] [place] [address] Performed By: #### 6 30-4, 67785-2 ####[facility] LABCLIA [id number] [address], [place] [address] [place] Nitrite Ql (U) Negative Normal Negative [facility] Comment on above: Order Comment: Speci men Type: URINE SPECIMENOrdering Facility: [facility] Address: [address] [place] [address] Performed By: #### 6 30-4, 16580-1 ####[facility] LABCLIA [id number] [address], [place] [address] [place] pH (U) 5.5 [pH] Normal <8.5 [facility] Comment on above: Order Comment: Speci men Type: URINE SPECIMENOrdering Facility: [facility] Address: [address] [place] [address] Performed By: #### 6 30-4, 84022-8 ####[facility] LABCLIA [id number] [facility] [address], [facility] [place] Protein (U) [Mass/Vol] 1+ Abnormal Negative Cl [facility] Comment on above: Order Comment: Speci men Type: URINE SPECIMENOrdering Facility: [facility] Address: [address] [place] [address] Performed By: #### 6 30-4, 81508-5 ####[facility] LABCLIA [id number] [place] [address] [place] RBC LM.HPF (Urine sed) [#/Area] 3-5 /HPF Abnormal 0-2 /HPF [facility] Comment on above: Order Comment: Speci men Type: URINE SPECIMENOrdering Facility: [facility] Address: [address] [place] [address] Performed By: #### 6 30-4, 00697-7 ####[facility] LABIA [id number] [place] [address] [place] Specific gravity (U) [Rel density] 1.017 Normal 1.005-1.03 0 [facility] Comment on above: Order Comment: Speci men Type: URINE SPECIMENOrdering Facility: [facility] Address: [address] [place] [address] Performed By: #### 6 30-4, 81324-9 ####[facility] LABIA [id number] [address] [place] Urobilinogen Ql (U) 0.2 EU/dL Normal 0.2-1.0 EU/dL [facility] Comment on above: Order Comment: Speci men Type: URINE SPECIMENOrdering Facility: [facility] Address: [address] [place] [address] Performed By: #### 6 30-4, 65750-7 ####[facility]PITAL[facility] [id number] [place] [address] [place] WBC LM.HPF (Urine sed) [#/Area] /[HPF] Abnormal 0-5 /HPF [facility] Comment on above: Order Comment: Speci men Type: URINE SPECIMENOrdering Facility: [facility] Address: [address] [place] [address] Performed By: #### 6 30-4, 31922-9 ####[facility] LABIA [id number] [place] [address] [place] CNPNon 10-05-[address] [facility] 09-25-[address] [facility] Normal [facility] CNPNon 09-24-2024 [facility] CNTHERAPYon 09-24-2024 CNTHERAPY OT/PT/Speech Visit (PNORCA) PAT SORTO ([id number]) 1960 F UPA Date Time Provider Department 09/24/24 9:45 AM NOE JACKSON Date Time Provider Department Center 09/24/2024 9:45 AM [id number], [facility] Reason for Visit: Physical Therapy [503] Primary Visit Diagnosis:Lymphedema of left arm [I89.0] Allergies As of Date: 09/24/2024 Noted Allergy Reaction AMOXICILLIN 11/15/2022 2 - Rash Comments: rash arms trunk neck face, itching Chills Tolerates Ancef Date Reviewed: 09/22/2024 Reviewed by: Brigida Cardoso MA - Fully Assessed Prescriptions as of 09/24/2024 - insulin glargine (LANTUS SOLOSTAR U-100 INSULIN) 100 unit/mL (3 mL) Inject 30 Units subcutaneously every morning. - DROPLET PEN NEEDLE 31 gauge x 3/16 1 each two times a day. - hydroCHLOROthiazide 25 mg tablet Take 25 mg by mouth once daily. - amLODIPine (NORVASC) 5 mg tablet Take 5 mg by mouth once daily. - traZODone (DESYREL) 50 mg tablet Take 1 tablet by mouth daily at bedtime. - metoprolol succinate ER (TOPROL XL) 25 mg 24 hr tablet take 1 tablet by mouth once daily - exemestane (AROMASIN) 25 mg tablet Take 1 tablet by mouth once daily. - losartan (COZAAR) 100 mg tablet Take 1 tablet by mouth every afternoon. - ursodiol (LEENA) 250 mg tablet Take 250 mg by mouth two times a day. - everolimus, antineoplastic, (AFINITOR) 10 mg tablet TAKE 1 TABLET ONCE DAILY - Sodium Fluoride, Dental Rinse, 0.2 % SWISH 10 ML BY MOUTH THEN SPIT ONCE WEEKLY - diphenhydrAMINE-Acetami nophen (TYLENOL PM EXTRA STRENGTH) 25-500 mg tab Take 1 tablet by mouth at bedtime as needed. - ONETOUCH ULTRA PLUS TEST strp 1 Each two times a day. E11.65; No insulin - Lancets Use with blood glucose test two times a day. Insulin Dep? No - blood sugar diagnostic (BLOOD GLUCOSE TEST) test strip Use with blood glucose test two times a day. Insulin Dep? No - aspirin, enteric coated (ASPIRIN, ENTERIC COATED) 81 mg EC tablet Take 81 mg by mouth once daily. - pantoprazole DR (PROTONIX) 40 mg tablet Take 40 mg by mouth daily before breakfast. - ascorbic acid, vitamin C, (VITAMIN C) 500 mg tablet Take 500 mg by mouth once daily. - alpha tocopheryl acetate (VITAMIN E) 400 unit capsule Take 400 Units by mouth once daily. - cyanocobalamin (VITAMIN B-12) 1,000 mcg tab Take 500 mcg by mouth once daily. - VITAMIN D 50,000 unit capsule 1 capsule one time a week. - CALCIUM CARBONATE (CALCIUM 500 ORAL) Take 1 tablet by mouth once daily. Normal [facility] US KIDNEY/BLADDERon 09-24-19 US KIDNEY/BLADDER * * *Final Report* * * DATE OF EXAM: Sep 23 2024 4:16PM LDU 1055 - US KIDNEY/BLADDER / PROCEDURE REASON: multiple diagnoses * * * * Physician Interpretation * * * * EXAMINATION: RENAL ULTRASOUND CLINICAL HISTORY: Acute renal insufficiency, microscopic hematuria TECHNIQUE: Sonography of the kidneys and urinary bladder was performed. Images were obtained and stored in a permanent archive. MQ: UR_1 COMPARISON: PET/CT 06/30/2024, ultrasound 11/19/2023 RESULT: Right Kidney: -Renal length: 9 cm -Parenchyma: Normal parenchymal echogenicity. Normal parenchymal thickness. -Collecting system: No hydronephrosis. -Calculus: 1.6 cm calculus. -Lesion: 1.1 cm cyst at the inferior pole. Left Kidney: -Renal length: 10 cm -Parenchyma: Normal parenchymal echogenicity. Normal parenchymal thickness. -Collecting system: No hydronephrosis. -Calculus: No echogenic, shadowing calculus. -Lesion: None. Bladder: Incompletely distended. IMPRESSION: No acute findings. Script Worker: PSCB Transcribe Date/Time: Sep 23 2024 4:26P Dictated by : KEDAR ORTIZ MD This examination was interpreted and the report reviewed and electronically signed by: KEDAR ORTIZ MD on Sep 23 2024 4:29PM EST [id number] Normal [facility] US Kidney - bilateral and Ur inary bladderon 09-23-2024 IMPRESSION: No acute findings. Script Worker: [facility] Transcribe Date/Time: Sep 23 2024 4:26P Dictated by : KEDAR ORTIZ MD This examination was interpreted and the report reviewed and electronically signed by: KEDAR ORTIZ MD on Sep 23 2024 4:29PM EST [employer] * * *Final Report* * * DATE OF EXAM: Sep 23 2024 4:16PM LDU 1055 - US KIDNEY/BLADDER / PROCEDURE REASON: multiple diagnoses * * * * Physician Interpretation * * * * EXAMINATION: RENAL ULTRASOUND CLINICAL HISTORY: Acute renal insufficiency, microscopic hematuria TECHNIQUE: Sonography of the kidneys and urinary bladder was performed. Images were obtained and stored in a permanent archive. MQ: UR_1 COMPARISON: PET/CT 06/30/2024, ultrasound 11/19/2023 RESULT: Right Kidney: -Renal length: 9 cm -Parenchyma: Normal parenchymal echogenicity. Normal parenchymal thickness. -Collecting system: No hydronephrosis. -Calculus: 1.6 cm calculus. -Lesion: 1.1 cm cyst at the inferior pole. Left Kidney: -Renal length: 10 cm -Parenchyma: Normal parenchymal echogenicity. Normal parenchymal thickness. -Collecting system: No hydronephrosis. -Calculus: No echogenic, shadowing calculus. -Lesion: None. Bladder: Incompletely distended. [employer] RADIOLOGY SYNGO Provider, [facility] - 09/23/2024 * * *Final Report* * * DATE OF EXAM: Sep 23 2024 4:16PM LDU 1055 - US KIDNEY/BLADDER / PROCEDURE REASON: multiple diagnoses * * * * Physician Interpretation * * * * EXAMINATION: RENAL ULTRASOUND CLINICAL HISTORY: Acute renal insufficiency, microscopic hematuria TECHNIQUE: Sonography of the kidneys and urinary bladder was performed. Images were obtained and stored in a permanent archive. MQ: UR_1 COMPARISON: PET/CT 06/30/2024, ultrasound 11/19/2023 RESULT: Right Kidney: -Renal length: 9 cm -Parenchyma: Normal parenchymal echogenicity. Normal parenchymal thickness. -Collecting system: No hydronephrosis. -Calculus: 1.6 cm calculus. -Lesion: 1.1 cm cyst at the inferior pole. Left Kidney: -Renal length: 10 cm -Parenchyma: Normal parenchymal echogenicity. Normal parenchymal thickness. -Collecting system: No hydronephrosis. -Calculus: No echogenic, shadowing calculus. -Lesion: None. Bladder: Incompletely distended. IMPRESSION IMPRESSION: No acute findings. Script Worker: MARTÍNEZ Transcribe Date/Time: Sep 23 2024 4:26P Dictated by : KEDAR ORTIZ MD This examination was interpreted and the report reviewed and electronically signed by: KEDAR ORTIZ MD on Sep 23 2024 4:29PM EST [facility] Radiology Study observation (narrative) [facility] US Kidney - bilateral and Ur inary bladderOrdered By: Ccf Provider on 09-23-2024 [facility] ALBUMIN/CREATININE RATIO, UR INEon 09-22-2024 Albumin DL <= 20 mg/L (U) [Mass/Vol] 209.8 mg/L Normal [facility] Comment on above: Order Comment: Speci men Type: URINE SPECIMENOrdering Facility: [facility] Address: [address] [place] [address] Performed By: #### U ACR ####[facility] LABCLIA [id number] [place] [address] [place] Albumin/Creatinine (U) [Mass ratio] 86 mg/g High <30 [facility] Comment on above: Order Comment: Speci men Type: URINE SPECIMENOrdering Facility: [facility] Address: [address] [place] [address] Result Comment: Adul t Male and Female Nephrotic Criteria:<30 mg/g is considered normal to mildly scqaxlyhb63-554 mg/g is considered moderately increased>300 mg/g is considered severely increasedKDIGO. (2013). KDIGO 2012 Clinical Practice Guideline for the Evaluation and Management of Chronic Kidney Disease. Official Journal of the International Society of Nephrology, 3(1), 1-150. Performed By: #### U ACR ####[facility] LABCLIA [id number] [address] [place] Creatinine (U) [Mass/Vol] 245.1 mg/dL Normal 20.0-300.0 [facility] Comment on above: Order Comment: Speci men Type: URINE SPECIMENOrdering Facility: [facility] Address: [address] [place] [address] Performed By: #### U ACR ####[facility] LABCLIA [id number] [place] Bacteria Ur Culton 5 Bacteria identified Cx Nom (U) Abnormal [facility] Comment on above: Performed By: #### 6 30-4 ####[facility] LABIA [id number] [address] [place] CNOVon 09-22-2024 CNOV Normal [facility] CNPNon 09-22-2024 CNPN Normal [facility] CNTHERAPYon 09-22-2024 CNTHERAPY OT/PT/Speech Visit (PNORCA) PAT SORTO ([id number]) 1960 F UPA Date Time Provider Department 09/22/24 10:30 AM NOE JACKSON PNORCA Date Time Provider Department Center 09/22/2024 10:30 AM [id number], [facility] Reason for Visit: Physical Therapy [503] Primary Visit Diagnosis:Lymphedema of left arm [I89.0] Allergies As of Date: 09/22/2024 Noted Allergy Reaction AMOXICILLIN 11/15/2022 2 - Rash Comments: rash arms trunk neck face, itching Chills Tolerates Ancef Date Reviewed: 09/08/2024 Reviewed by: Tatianna Crook RPh - Fully Assessed Prescriptions as of 09/22/2024 - insulin glargine (LANTUS SOLOSTAR U-100 INSULIN) 100 unit/mL (3 mL) Inject 30 Units subcutaneously every morning. - DROPLET PEN NEEDLE 31 gauge x 3/16 1 each two times a day. - hydroCHLOROthiazide 25 mg tablet Take 25 mg by mouth once daily. - amLODIPine (NORVASC) 5 mg tablet Take 5 mg by mouth once daily. - traZODone (DESYREL) 50 mg tablet Take 1 tablet by mouth daily at bedtime. - metoprolol succinate ER (TOPROL XL) 25 mg 24 hr tablet take 1 tablet by mouth once daily - exemestane (AROMASIN) 25 mg tablet Take 1 tablet by mouth once daily. - losartan (COZAAR) 100 mg tablet Take 1 tablet by mouth every afternoon. - ursodiol (LEENA) 250 mg tablet Take 250 mg by mouth two times a day. - everolimus, antineoplastic, (AFINITOR) 10 mg tablet TAKE 1 TABLET ONCE DAILY - Sodium Fluoride, Dental Rinse, 0.2 % SWISH 10 ML BY MOUTH THEN SPIT ONCE WEEKLY - diphenhydrAMINE-Acetami nophen (TYLENOL PM EXTRA STRENGTH) 25-500 mg tab Take 1 tablet by mouth at bedtime as needed. - GetOutfittedUCH ULTRA PLUS TEST strp 1 Each two times a day. E11.65; No insulin - Lancets Use with blood glucose test two times a day. Insulin Dep? No - blood sugar diagnostic (BLOOD GLUCOSE TEST) test strip Use with blood glucose test two times a day. Insulin Dep? No - aspirin, enteric coated (ASPIRIN, ENTERIC COATED) 81 mg EC tablet Take 81 mg by mouth once daily. - pantoprazole DR (PROTONIX) 40 mg tablet Take 40 mg by mouth daily before breakfast. - ascorbic acid, vitamin C, (VITAMIN C) 500 mg tablet Take 500 mg by mouth once daily. - alpha tocopheryl acetate (VITAMIN E) 400 unit capsule Take 400 Units by mouth once daily. - cyanocobalamin (VITAMIN B-12) 1,000 mcg tab Take 500 mcg by mouth once daily. - VITAMIN D 50,000 unit capsule 1 capsule one time a week. - CALCIUM CARBONATE (CALCIUM 500 ORAL) Take 1 tablet by mouth once daily. Normal [facility] Comprehensive metabolic 2000 panelon 09-22-2024 Albumin [Mass/Vol] 3.8 g/dL Low 3.9-4.9 [facility] Comment on above: Order Comment: Speci men Type: BLOOD SPECIMENOrdering Facility: [facility] Address: [address] [place] [address] Performed By: #### 2 4323-8 ####[facility]THNCLIA [id number] [place] [address] [place]#### LIPNF ####[facility] LABCLIA [id number] [place] [address] [place] ALP [Catalytic activity/Vol] 57 U/L Normal 34-123 [facility] Comment on above: Order Comment: Speci men Type: BLOOD SPECIMENOrdering Facility: [facility] Address: [address] [place] [address] Performed By: #### 2 4323-8 ####[facility] H[facility]PITALLIA [id number] [place] [address] [place]#### LIPNF ####[facility] LABCLIA [id number] [address] [address] [place] ALT [Catalytic activity/Vol] 13 U/L Normal 7-38 [facility] Comment on above: Order Comment: Speci men Type: BLOOD SPECIMENOrdering Facility: [facility] Address: [address] [place] [address] Performed By: #### 2 4323-8 ####[facility] MILLWNCLIA [id number] [place] [address] [place]#### LIPNF ####[facility] LABCLIA [id number] [place] [address] [place] Anion gap [Moles/Vol] 11 mmol/L Normal 8-15 [facility] Comment on above: Order Comment: Speci men Type: BLOOD SPECIMENOrdering Facility: [facility] Address: [address] [place] [address] Performed By: #### 2 4323-8 ####[facility]ITALLIA [id number] [place] [address] [place]#### LIPNF ####[facility] LABCLIA [id number] [place] [address] [place] AST [Catalytic activity/Vol] 20 U/L Normal 13-35 [facility] Comment on above: Order Comment: Speci men Type: BLOOD SPECIMENOrdering Facility: [facility] Address: [address] [place] [address] Performed By: #### 2 4323-8 ####[facility]NCLIA [id number] [place] [address] [place]#### LIPNF ####[facility] LABCLIA [id number] [place] [address] [place] Bilirubin [Mass/Vol] 0.3 mg/dL Normal 0.2-1.3 [facility] Comment on above: Order Comment: Speci men Type: BLOOD SPECIMENOrdering Facility: [facility] Address: [address] [place] [address] Performed By: #### 2 4323-8 ####[facility] [id number] [place] [address] [place]#### LIPNF ####[facility] LABCLIA [id number] [address] [address] [place] Calcium [Mass/Vol] 9.5 mg/dL Normal 8.5-10.2 [facility] Comment on above: Order Comment: Speci men Type: BLOOD SPECIMENOrdering Facility: [facility] Address: [address] [place] [address] Performed By: #### 2 4323-8 ####[facility] MILLTOWNCLIA [id number] [place] [address] [place]#### LIPNF ####[facility] LABCLIA [id number] [place] [address] [place] Chloride [Moles/Vol] 101 mmol/L Normal 98-107 [facility] Comment on above: Order Comment: Speci men Type: BLOOD SPECIMENOrdering Facility: [facility] Address: [address] [place] [address] Performed By: #### 2 4323-8 ####[facility]ITAL[facility]CLIA [id number] [place] [address] [place]#### LIPNF ####[facility] LABCLIA [id number] [place] [address] [place] CO2 [Moles/Vol] 24 mmol/L Normal 22-30 [facility] Comment on above: Order Comment: Speci men Type: BLOOD SPECIMENOrdering Facility: [facility] Address: [address] [place], [place] [address] Performed By: #### 2 4323-8 ####[facility] MILLWNCLIA [id number] [place] [address] [place]#### LIPNF ####[facility] LABCLIA [id number] [place] [address] [place] Creatinine [Mass/Vol] 1.96 mg/dL High 0.58-0.96 [facility] Comment on above: Order Comment: Speci men Type: BLOOD SPECIMENOrdering Facility: [facility] Address: [address] [place] [address] Performed By: #### 2 4323-8 ####[facility] [id number] [place] [address] [place]#### LIPNF ####[facility]ITAL[facility] [id number] [place] [address] [place] Creatinine and Glomerular filtration rate.predicted panel (S/P/Bld) 28 mL/min/1.73m??? Low >=60 [facility] Comment on above: Order Comment: Sunny lynn Type: BLOOD SPECIMENOrdering Facility: [facility] Address: [address] [place] [address] Result Comment: Sherlyn mated Glomerular Filtration Rate (eGFR) is calculated using the 2020 CKD-EPI creatinine equation. This equation utilizes serum creatinine, sex, and age as parameters. The creatinine assay has traceable calibration to isotope dilution-mass spectrometry. Refer to KDIGO guidelines for clinical interpretation. In patients with unstable renal function, e.g. those with acute kidney injury, the eGFR may not accurately reflect actual GFR. Performed By: #### 2 4323-8 ####[facility] [id number] [place] [address] [place]#### LIPNF ####[facility] [id number] [place] [address] [place] Glucose [Mass/Vol] 199 mg/dL High 74-99 [facility] Comment on above: Order Comment: Kourtneyi leah Type: BLOOD SPECIMENOrdering Facility: [facility] Address: [address] [place] [address] Result Comment: The [place] Diabetes Association (ADA) provides guidance for cutoff values for fasting glucose and random glucose. The ADA defines fasting as no caloric intake for at least 8 hours. Fasting plasma glucose results between 100 to 125 mg/dL indicate increased risk for diabetes (prediabetes).Fasting plasma glucose results greater than or equal to 126 mg/dL meet the criteria for diagnosis of diabetes. In the absence of unequivocal hyperglycemia, results should be confirmed by repeat testing. In a patient with classic symptoms of hyperglycemia or hyperglycemic crisis, random plasma glucose results greater than or equal to 200 mg/dL meet the criteria for diagnosis of diabetes.Reference: Standards of Medical Care in Diabetes 2016, [place] Diabetes Association. Diabetes Care. 2016.39(Suppl 1). Performed By: #### 2 4323-8 ####[facility] [id number] [place] [address] [place]#### LIPNF ####[facility] LABIA [id number] [place] [address] [place] Potassium [Moles/Vol] 3.6 mmol/L Low 3.7-5.1 [facility] Comment on above: Order Comment: Speci men Type: BLOOD SPECIMENOrdering Facility: [facility] Address: [address] [place] [address] Performed By: #### 2 4323-8 ####[facility] [id number] [place] [address] [place]#### LIPNF ####[facility] LABCLIA [id number] [place] [address] [place] Protein [Mass/Vol] 6.6 g/dL Normal 6.3-8.0 [facility] Comment on above: Order Comment: Speci men Type: BLOOD SPECIMENOrdering Facility: [facility] Address: [address] [place] [address] Performed By: #### 2 4323-8 ####[facility]PITALLIA [id number] [place] [address] [place]#### LIPNF ####[facility] LABCLIA [id number] [place] [id number] [place] Sodium [Moles/Vol] 136 mmol/L Normal 136-144 [facility] Comment on above: Order Comment: Speci men Type: BLOOD SPECIMENOrdering Facility: [facility] Address: [address] [place] [address] Performed By: #### 2 4323-8 ####[facility]ITALLIA [id number] [place] [address] [place]#### LIPNF ####[facility] LABCLIA [id number] [place] [address] [place] Urea nitrogen [Mass/Vol] 62 mg/dL High 7-21 [facility] Comment on above: Order Comment: Speci men Type: BLOOD SPECIMENOrdering Facility: [facility] Address: [address] [place] [address] Performed By: #### 2 4323-8 ####[facility]ALL[facility] [id number] [place] [address] [place]#### LIPNF ####[facility] LABCLIA [id number] [address] [place] HbA1c (Bld)on 09-22-2024 Average glucose Estimated from glycated hemoglobin (Bld) [Mass/Vol] 174 mg/dL Normal [facility] Comment on above: Order Comment: Speci men Type: BLOOD SPECIMENOrdering Facility: [facility] Address: [address] [place] [address] Result Comment: eAG: (Estimated average glucose) is a calculated value from HgbA1c and is traffic representative of the average blood glucose level in the last 2-3 month period. Performed By: #### 5 5454-3 ####[facility] LABCLIA [id number] [address] [place] HbA1c (Bld) [Mass fraction] 7.7 % High 4.3-5.6 [facility] Comment on above: Order Comment: Sunny lynn Type: BLOOD SPECIMENOrdering Facility: [facility] Address: [address] [place] [address] Result Comment: [place] Diabetes Association guidelines indicate that patients with HgbA1c in the range 5.7-6.4% are at increased risk for development of diabetes, and intervention by lifestyle modification may be beneficial. HgbA1c greater or equal to 6.5% is considered diagnostic of diabetes. Performed By: #### 5 5454-3 ####[facility] LABCLIA [id number] [place] [address] [place] LIPID PANEL, NONFASTINGon Cholesterol [Mass/Vol] 231 mg/dL High <200 [facility] Comment on above: Order Comment: Sunny lynn Type: BLOOD SPECIMENOrdering Facility: [facility] Address: [address] [place] [address] Result Comment: <200 mg/dL, Desirable 200-239 mg/dL, Borderline high>239 mg/dL, High Performed By: #### 2 4323-8 ####[facility]PITALWMNLIA [id number] [address] [place]#### LIPNF ####[facility] LABCLIA [id number] [address] [place] HDL CHOLESTEROL, NF 29 mg/dL Low >[address] [facility] Comment on above: Order Comment: Sunny lynn Type: BLOOD SPECIMENOrdering Facility: [facility] Address: [address] [place] [address] Result Comment: 40-5 9 mg/dL, Acceptable>59 mg/dL, High: Negative risk factor for coronary heart disease<40 mg/dL, Low: Positive risk factor for coronary heart disease Performed By: #### 2 4323-8 ####[facility]ITALWNCLIA [id number] [place] [address] [place]#### LIPNF ####[facility] [id number] [address] STATES [facility] LDL CHOLESTEROL CALCULATED, NF 116 mg/dL High <100 [facility] Comment on above: Order Comment: Speci men Type: BLOOD SPECIMENOrdering Facility: [facility] Address: [address] [place] [address] Result Comment: <100 mg/dL, Optimal 100-129 mg/dL, Near optimal/above optimal 130-159 mg/dL, Borderline high 160-189 mg/dL, High>189 mg/dL, Very highSecondary prevention optimal LDL Cholesterol levels are recommended to be <70 mg/dLLDL cholesterol is calculated using the Fernandez-NIH equation. Performed By: #### 2 4323-8 ####[facility] [id number] [address] STATES [facility]#### LIPNF ####[facility] [id number] [address] STATES [facility] LDL/HDL RATIO, NF 4.00 mg/dL High <2.54 [facility] Comment on above: Order Comment: Speci men Type: BLOOD SPECIMENOrdering Facility: [facility] Address: [address] [place] [address] Result Comment: Refe rence:1. National Cholesterol Education Program ATP III Guideline At-A-Glance Quick Desk Reference: National Heart, Lung, and Blood [place]. National Institutes of Health. 2001: NIH Publication No. 01-3305.2. An International Atherosclerosis Society position paper: global recommendations for the management of dyslipidemia: executive summary, Atherosclerosis. 2014: 232(2):410-413. Performed By: #### 2 4323-8 ####[facility]NCL[facility] [id number] [address] [place]#### LIPNF ####[facility] LABCLIA [id number] [place] [address] [place] NON HDL CHOL, NF 202 mg/dL High <130 [facility] Comment on above: Order Comment: Speci men Type: BLOOD SPECIMENOrdering Facility: [facility] Address: [address] [place] [address] Result Comment: <130 mg/dL, Optimal 130-159 mg/dL, Near optimal/above optimal 160-189 mg/dL, Borderline high 190-219 mg/dL, High>219 mg/dL, Very highSecondary prevention optimal non HDL Cholesterol levels are recommended to be <100 mg/dL Performed By: #### 2 4323-8 ####[facility] H[facility]ITALLIA [id number] [place] [address] [place]#### LIPNF ####[facility] LABCLIA [id number] [place] [address] [place] T CHOL/HDL RATIO NF 7.97 mg/dL High <5.[address] [facility] Comment on above: Order Comment: Speci men Type: BLOOD SPECIMENOrdering Facility: [facility] Address: [address] [place] [address] Performed By: #### 2 4323-8 ####[facility]ITALWNCLIA [id number] [place] [address] [place]#### LIPNF ####[facility] LABCLIA [id number] [place] [address] [place] TRIGLYCERIDES, NF 491 mg/dL High <150 [facility] Comment on above: Order Comment: Speci men Type: BLOOD SPECIMENOrdering Facility: [facility] Address: [address] [place] [address] Result Comment: <150 mg/dL, Normal 150-199 mg/dL, Borderline high 200-499 mg/dL, High>499 mg/dL, Very high Performed By: #### 2 4323-8 ####[facility]CL[facility] [id number] [place] [address] [place]#### LIPNF ####[facility] LABCLIA [id number] [address] [address] [place] VLDL CHOLESTEROL, NF 87 mg/dL High <30 [facility] Comment on above: Order Comment: Speci men Type: BLOOD SPECIMENOrdering Facility: [facility] Address: [address] [place] [address] Performed By: #### 2 4323-8 ####[facility] [id number] [place] [address] [place]#### LIPNF ####[facility] LABCLIA [id number] [place] [address] [place] UA DIP, URINE (POC)on 2024 BILIRUBIN UA (POCT) Negative Negative [facility] CLARITY UA (POCT) Clear [facility] COLOR UA (POCT) Yellow [facility] GLUCOSE UA (POCT) 250 mg/dL Abnormal Negative [facility] Hemoglobin Ql (U) Large Abnormal Negative [facility] Interpretation and review of laboratory results Abnormal [facility] KETONE UA (POCT) Negative Negative mg/dL [facility] LEUKOCYTES UA (POCT) Moderate Abnormal Negative [facility] NITRITE UA (POCT) Negative Negative [facility] PH UA (POCT) 5.5 4.5 - 8.0 [facility] Protein Ql (U) 30 mg/dL Abnormal Negative [facility] SPECIFIC GRAVITY UA (POCT) 1.02 1.005 - 1.030 [facility] UROBILINOGEN UA (POCT) 0.2 Noemy l E.U./dL [facility] Location:[facility], [address] [place] [address], [place], [place], [id number] [place] [address] POINT OF CARE [facility] Urinalysis complete panel (U )on 09-22-2024 Bacteria uL 1220.7 uL High - 941 uL [facility] Bilirubin Ql (U) Negative Negative [facility] Clarity (Unsp spec) Turbid Abnormal Clear [facility] Color (U) Yellow Yellow [facility] Epithelial cells LM.HPF (Urine sed) [#/Area] None Seen /HPF [facility] Glucose Test strip (U) [Mass/Vol] 1+ Abnormal Negative [facility] Hemoglobin Ql (U) 3+ Abnormal Negative [facility] Hyaline casts (Urine sed) [#/Area] 1-3 /LPF Abnormal 0 /LPF [facility] Interpretation and review of laboratory results Abnormal [facility] Ketones Ql (U) Negative Negative [facility] Leukocyte esterase Test strip Ql (U) 3+ Abnormal Negative [facility] Nitrite Ql (U) Negative Negative [facility] pH (U) 6 [pH] NINF - 8.5 [facility] Protein (U) [Mass/Vol] 1+ Abnormal Negative [facility] RBC LM.HPF (Urine sed) [#/Area] /[HPF] Abnormal 0-2 /HPF [facility] Specific gravity (U) [Rel density] 1.016 1.005 - 1.030 [facility] Urobilinogen Ql (U) 0.2 EU/dL 0.2-1.0 EU/dL [facility] WBC LM.HPF (Urine sed) [#/Area] /[HPF] Abnormal 0-5 /HPF [facility] This test was develo ped and its performance characteristics determined by [facility]'s [facility] [place] ([facility]). It has not been cleared or approved by the FDA. [facility] is regulated under CLIA as qualified to perform high-complexity testing. This test is used for clinical purposes. It should not be regarded as investigational or for research. [facility] BACTERIA UL 1220.7 uL High Negative [facility] Comment on above: Order Comment: Speci men Type: URINE SPECIMENOrdering Facility: [facility] Address: [address] [place] [address] Performed By: #### 2 4356-8 ####[facility] LABCLIA [id number] [place] [address] [place] Bilirubin Ql (U) Negative Normal Negative [facility] Comment on above: Order Comment: Speci men Type: URINE SPECIMENOrdering Facility: [facility] Address: [address] [place] [address] Performed By: #### 2 4356-8 ####[facility] LABCLIA [id number] [address] [address] [place] Clarity (Unsp spec) Turbid Abnormal Clear [facility] Comment on above: Order Comment: Speci men Type: URINE SPECIMENOrdering Facility: [facility] Address: [address] [place] [address] Performed By: #### 2 4356-8 ####[facility] LABCLIA [id number] [place] [address] [place] Color (U) Yellow Normal Yellow [facility] Comment on above: Order Comment: Speci men Type: URINE SPECIMENOrdering Facility: [facility] Address: [address] [place] [address] Performed By: #### 2 4356-8 ####[facility] LABCLIA [id number] [place] [address] [place] Epithelial cells LM.HPF (Urine sed) [#/Area] None Seen Normal [facility] Comment on above: Order Comment: Speci men Type: URINE SPECIMENOrdering Facility: [facility] Address: [address] [place] [address] Performed By: #### 2 4356-8 ####[facility] LABCLIA [id number] [address] [address] [place] Glucose Test strip (U) [Mass/Vol] 1+ Abnormal Negative [facility] Comment on above: Order Comment: Speci men Type: URINE SPECIMENOrdering Facility: [facility] Address: [address] [place] [address] Performed By: #### 2 4356-8 ####[facility] LABCLIA [id number] [address] [place] [address] [place] Hemoglobin Ql (U) 3+ Abnormal Negative [facility] Comment on above: Order Comment: Speci men Type: URINE SPECIMENOrdering Facility: [facility] Address: [address] [place] [address] Performed By: #### 2 4356-8 ####[facility] LABCLIA [id number] [address], [facility] [place] Hyaline casts (Urine sed) [#/Area] 1-3 /LPF Abnormal 0 /LPF [facility] Comment on above: Order Comment: Speci men Type: URINE SPECIMENOrdering Facility: [facility] Address: [address] [place] [address] Performed By: #### 2 4356-8 ####[facility] LABCLIA [id number] [address], [place] [address] [place] Ketones Ql (U) Negative Normal Negative [facility] Comment on above: Order Comment: Speci men Type: URINE SPECIMENOrdering Facility: [facility] Address: [address] [place] [address] Performed By: #### 2 4356-8 ####[facility] LABCLIA [id number] [address], [facility] [place] Leukocyte esterase Test strip Ql (U) 3+ Abnormal Negative [facility] Comment on above: Order Comment: Speci men Type: URINE SPECIMENOrdering Facility: [facility] Address: [address] [place] [address] Performed By: #### 2 4356-8 ####[facility] LABCLIA [id number] [address], [facility]95 [place] Nitrite Ql (U) Negative Normal Negative [facility] Comment on above: Order Comment: Speci men Type: URINE SPECIMENOrdering Facility: [facility] Address: [address] [place] [address] Performed By: #### 2 4356-8 ####[facility] LABCLIA [id number] [place] [address] [place] pH (U) 6.0 [pH] Normal <8.5 [facility] Comment on above: Order Comment: Speci men Type: URINE SPECIMENOrdering Facility: [facility] Address: [address] [place] [address] Performed By: #### 2 4356-8 ####[facility] LABIA [id number] [place] [address] [place] Protein (U) [Mass/Vol] 1+ Abnormal Negative Cl [facility] Comment on above: Order Comment: Speci men Type: URINE SPECIMENOrdering Facility: [facility] Address: [address] [place] [address] Performed By: #### 2 4356-8 ####[facility] LABIA [id number] [place], [place] [address] [place] RBC LM.HPF (Urine sed) [#/Area] /[HPF] Abnormal 0-2 /HPF [facility] Comment on above: Order Comment: Speci men Type: URINE SPECIMENOrdering Facility: [facility] Address: [address] [place] [address] Performed By: #### 2 4356-8 ####[facility] LABIA [id number] [place] [address] [place] Specific gravity (U) [Rel density] 1.016 Normal 1.005-1.03 0 [facility] Comment on above: Order Comment: Speci men Type: URINE SPECIMENOrdering Facility: [facility] Address: [address] [place] [address] Performed By: #### 2 4356-8 ####[facility] LABIA [id number] [address] [place] Urobilinogen Ql (U) 0.2 EU/dL Normal 0.2-1.0 EU/dL [facility] Comment on above: Order Comment: Speci men Type: URINE SPECIMENOrdering Facility: [facility] Address: [address] [place] [address] Performed By: #### 2 4356-8 ####[facility] [id number] [place] [address] [place] WBC LM.HPF (Urine sed) [#/Area] /[HPF] Abnormal 0-5 /HPF [facility] Comment on above: Order Comment: Speci men Type: URINE SPECIMENOrdering Facility: [facility] Address: [address] [place] [address] Performed By: #### 2 4356-8 ####[facility] LABIA [id number] [address] [place] CNTHERAPYon 09-11-2024 CNTHERAPY OT/PT/Speech Visit (PNORCA) PAT SORTO ([id number]) 1960 F [place] Date Time Provider Department 09/11/24 9:00 AM NOE JACKSONOH Date Time Provider Department Center 09/11/2024 9:00 AM [id number], MIRANDA RUST N Reason for Visit: Physical Therapy [503] Primary Visit Diagnosis:Lymphedema of left arm [I89.0] Allergies As of Date: 09/11/2024 Noted Allergy Reaction AMOXICILLIN 11/15/2022 2 - Rash Comments: rash arms trunk neck face, itching Chills Tolerates Ancef Date Reviewed: 09/08/2024 Reviewed by: Tatianna Crook RPh - Fully Assessed Prescriptions as of 09/11/2024 - nitrofurantoin monohydrate and macrocrystal (MACROBID) 100 mg capsule Take 1 capsule by mouth two times a day with meals for 7 days. - insulin glargine (LANTUS SOLOSTAR U-100 INSULIN) 100 unit/mL (3 mL) Inject 30 Units subcutaneously every morning. - DROPLET PEN NEEDLE 31 gauge x 3/16 1 each two times a day. - hydroCHLOROthiazide 25 mg tablet Take 25 mg by mouth once daily. - amLODIPine (NORVASC) 5 mg tablet Take 5 mg by mouth once daily. - traZODone (DESYREL) 50 mg tablet Take 1 tablet by mouth daily at bedtime. - metoprolol succinate ER (TOPROL XL) 25 mg 24 hr tablet take 1 tablet by mouth once daily - exemestane (AROMASIN) 25 mg tablet Take 1 tablet by mouth once daily. - losartan (COZAAR) 100 mg tablet Take 1 tablet by mouth every afternoon. - ursodiol (LEENA) 250 mg tablet Take 250 mg by mouth two times a day. - everolimus, antineoplastic, (AFINITOR) 10 mg tablet TAKE 1 TABLET ONCE DAILY - Sodium Fluoride, Dental Rinse, 0.2 % SWISH 10 ML BY MOUTH THEN SPIT ONCE WEEKLY - diphenhydrAMINE-Acetami nophen (TYLENOL PM EXTRA STRENGTH) 25-500 mg tab Take 1 tablet by mouth at bedtime as needed. - ONETOUCH ULTRA PLUS TEST strp 1 Each two times a day. E11.65; No insulin - Lancets Use with blood glucose test two times a day. Insulin Dep? No - blood sugar diagnostic (BLOOD GLUCOSE TEST) test strip Use with blood glucose test two times a day. Insulin Dep? No - aspirin, enteric coated (ASPIRIN, ENTERIC COATED) 81 mg EC tablet Take 81 mg by mouth once daily. - pantoprazole DR (PROTONIX) 40 mg tablet Take 40 mg by mouth daily before breakfast. - ascorbic acid, vitamin C, (VITAMIN C) 500 mg tablet Take 500 mg by mouth once daily. - alpha tocopheryl acetate (VITAMIN E) 400 unit capsule Take 400 Units by mouth once daily. - cyanocobalamin (VITAMIN B-12) 1,000 mcg tab Take 500 mcg by mouth once daily. - VITAMIN D 50,000 unit capsule 1 capsule one time a week. - CALCIUM CARBONATE (CALCIUM 500 ORAL) Take 1 tablet by mouth once daily. Normal [facility] Bacteria Ur Culton Bacteria identified Cx Nom (U) Abnormal [facility] Comment on above: Performed By: #### 6 30-4 ####[facility] LABCLIA [id number] [facility]ITALPrisc[facility] [place] [address] [place] CNOVon 09-07-2024 CNOV Normal [facility] UA DIP, URINE (POC)on 2024 BILIRUBIN UA (POCT) Negative Negative [facility] CLARITY UA (POCT) Cloudy [facility] COLOR UA (POCT) Yellow [facility] GLUCOSE UA (POCT) Negative Negative mg/dL [facility] Hemoglobin Ql (U) Large Abnormal Negative [facility] Interpretation and review of laboratory results Abnormal [facility] KETONE UA (POCT) Negative Negative mg/dL [facility] LEUKOCYTES UA (POCT) Small Abnormal Negative [facility] NITRITE UA (POCT) Negative Negative [facility] PH UA (POCT) 5.5 4.5 - 8.0 [facility] Protein Ql (U) 100 mg/dL Abnormal Negative [facility] SPECIFIC GRAVITY UA (POCT) 1.025 1.005 - 1.030 [facility] UROBILINOGEN UA (POCT) 0.2 Noemy l E.U./dL [facility] Location:[address], [address] [place] [address] POINT OF CARE [facility] CNOVon 09-03-2024 CNOV Normal [facility] CBC W Auto Differential pane l (Bld)on 09-01-2024 Basophils (Bld) [#/Vol] 0.06 10*3/uL Normal <0.11 [facility] Comment on above: Order Comment: Speci men Type: BLOOD SPECIMENOrdering Facility: [facility] Address: [address] [place] [address] Performed By: #### 5 7021-8 ####[facility] [id number] [place] [address] [place] Basophils/100 WBC (Bld) 0.8 % Normal C [facility] Comment on above: Order Comment: Speci men Type: BLOOD SPECIMENOrdering Facility: [facility] Address: [address] [place] [address] Performed By: #### 5 7021-8 ####[facility] MAURYROMELIA [id number] [place] [address] [place] Differential cell count method Nom (Bld) Auto Normal [facility] Comment on above: Order Comment: Speci men Type: BLOOD SPECIMENOrdering Facility: [facility] Address: [address] [place] [address] Performed By: #### 5 7021-8 ####[facility] [id number] [place] [address] [place] Eosinophils (Bld) [#/Vol] 0.11 10*3/uL Normal <0.46 [facility] Comment on above: Order Comment: Speci men Type: BLOOD SPECIMENOrdering Facility: [facility] Address: [address] [place] [address] Performed By: #### 5 7021-8 ####[facility] [id number] [place] [address] [place] Eosinophils/100 WBC (Bld) 1.5 % Normal [facility] Comment on above: Order Comment: Speci men Type: BLOOD SPECIMENOrdering Facility: [facility] Address: [address] [place] [address] Performed By: #### 5 7021-8 ####[facility]ITALLI [id number] [place] [address] [place] Erythrocyte distribution width (RBC) [Ratio] 13.7 % Normal 11.5-15.0 [facility] Comment on above: Order Comment: Speci men Type: BLOOD SPECIMENOrdering Facility: [facility] Address: [address] [place] [address] Performed By: #### 5 7021-8 ####[facility]ITALLIA [id number] [place] [address] [place] Hematocrit (Bld) [Volume fraction] 33.7 % Low 36.0-46.0 [facility] Comment on above: Order Comment: Speci men Type: BLOOD SPECIMENOrdering Facility: [facility] Address: [address] [place] [address] Performed By: #### 5 7021-8 ####[facility] [id number] [place] [address] [place] Hemoglobin (Bld) [Mass/Vol] 11.4 g/dL Low 11.5-15.5 [facility] Comment on above: Order Comment: Speci men Type: BLOOD SPECIMENOrdering Facility: [facility] Address: [address] [place] [address] Performed By: #### 5 7021-8 ####[facility] [id number] [place] [address] [place] Immature granulocytes (Bld) [#/Vol] 0.06 10*3/uL Normal <0.10 [facility] Comment on above: Order Comment: Speci men Type: BLOOD SPECIMENOrdering Facility: [facility] Address: [address] [place] [address] Performed By: #### 5 7021-8 ####[facility] [id number] [place] [address] [place] Immature granulocytes/100 WBC (Bld) 0.8 % Normal [facility] Comment on above: Order Comment: Speci men Type: BLOOD SPECIMENOrdering Facility: [facility] Address: [address] [place] [address] Performed By: #### 5 7021-8 ####[facility]THNCLIA [id number] [place] [address] [place] Lymphocytes (Bld) [#/Vol] 1.73 10*3/uL Normal 1.00-4.00 [facility] Comment on above: Order Comment: Speci men Type: BLOOD SPECIMENOrdering Facility: [facility] Address: [address] [place] [address] Performed By: #### 5 7021-8 ####[facility] [id number] [place] [address] [place] Lymphocytes/100 WBC (Bld) 23.4 % Normal [facility] Comment on above: Order Comment: Speci men Type: BLOOD SPECIMENOrdering Facility: [facility] Address: [address] [place] [address] Performed By: #### 5 7021-8 ####[facility] NORTHNCLI [id number] [place] [address] [place] MCH (RBC) [Entitic mass] 28.8 pg Normal 26.0-34.0 [facility] Comment on above: Order Comment: Speci men Type: BLOOD SPECIMENOrdering Facility: [facility] Address: [address] [place] [address] Performed By: #### 5 7021-8 ####[facility] NORTHNCLI [id number] [place] [address] [place] MCHC (RBC) [Mass/Vol] 33.8 g/dL Normal 30.5-36.0 [facility] Comment on above: Order Comment: Speci men Type: BLOOD SPECIMENOrdering Facility: [facility] Address: [address] [place] [address] Performed By: #### 5 7021-8 ####[facility] NORTHNCLI [id number] [place] [address] [place] MCV (RBC) [Entitic vol] 85.1 fL Normal 80.0-100.0 C [facility] Comment on above: Order Comment: Speci men Type: BLOOD SPECIMENOrdering Facility: [facility] Address: [address] [place] [address] Performed By: #### 5 7021-8 ####[facility] MAURYROMELIA [id number] [place] [address] [place] Monocytes (Bld) [#/Vol] 0.59 10*3/uL Normal <0.87 [facility] Comment on above: Order Comment: Speci men Type: BLOOD SPECIMENOrdering Facility: [facility] Address: [address] [place] [address] Performed By: #### 5 7021-8 ####[facility] NORTHYISSELA [id number] [place] [address] [place] Monocytes/100 WBC (Bld) 8.0 % Normal [facility] Comment on above: Order Comment: Speci men Type: BLOOD SPECIMENOrdering Facility: [facility] Address: [address] [place] [address] Performed By: #### 5 7021-8 ####[facility] NORTHNCKey [id number] [place] [address] [place] Neutrophils (Bld) [#/Vol] 4.83 10*3/uL Normal 1.45-7.50 [facility] Comment on above: Order Comment: Speci men Type: BLOOD SPECIMENOrdering Facility: [facility] Address: [address] [place] [address] Performed By: #### 5 7021-8 ####[facility] NORTHCARLOSLIA [id number] [place] [address] [place] Neutrophils/100 WBC (Bld) 65.5 % Normal [facility] Comment on above: Order Comment: Speci men Type: BLOOD SPECIMENOrdering Facility: [facility] Address: [address] [place] [address] Performed By: #### 5 7021-8 ####[facility] NORTHCARLOSLIA [id number] [place] [address] [place] Nucleated RBC (Bld) [#/Vol] 10*3/uL Normal <0.01 [facility] Comment on above: Order Comment: Speci men Type: BLOOD SPECIMENOrdering Facility: [facility] Address: [address] [place] [address] Performed By: #### 5 7021-8 ####[facility] HOSPITALLIA [id number] [place] [address] [place] Nucleated RBC/100 WBC (Bld) [Ratio] 0.0 /100 WBC Normal [facility] Comment on above: Order Comment: Speci men Type: BLOOD SPECIMENOrdering Facility: [facility] Address: [address] [place] [address] Performed By: #### 5 7021-8 ####[facility] NORTHNCLI [id number] [place] [address] [place] Platelet mean volume (Bld) [Entitic vol] 10.8 fL Normal 9.0-12.7 [facility] Comment on above: Order Comment: Speci men Type: BLOOD SPECIMENOrdering Facility: [facility] Address: [address] [place] [address] Performed By: #### 5 7021-8 ####[facility] HOSPITALLIA [id number] [place] [address] [place] Platelets (Bld) [#/Vol] 186 10*3/uL Normal 150-400 [facility] Comment on above: Order Comment: Speci men Type: BLOOD SPECIMENOrdering Facility: [facility] Address: [address] [place] [address] Performed By: #### 5 7021-8 ####[facility] NORTHNCLIA [id number] [place] [address] [place] RBC (Bld) [#/Vol] 3.96 10*6/uL Normal 3.90-5.[address] [facility] Comment on above: Order Comment: Speci men Type: BLOOD SPECIMENOrdering Facility: [facility] Address: [address] [place] [address] Performed By: #### 5 7021-8 ####[facility] NORTHNIA [id number] [place] [address] [place] WBC (Bld) [#/Vol] 7.38 10*3/uL Normal 3.70-11.[address] [facility] Comment on above: Order Comment: Speci men Type: BLOOD SPECIMENOrdering Facility: [facility] Address: [address] [place] [address] Performed By: #### 5 7021-8 ####[facility] NORTHNIA [id number] [place] [address] [place] Comprehensive metabolic 2000 panelon 09-01-2024 Albumin [Mass/Vol] 4.0 g/dL Normal 3.9-4.9 [facility] Comment on above: Order Comment: Speci men Type: BLOOD SPECIMENOrdering Facility: [facility] Address: [address] [place] [address] Performed By: #### 2 4323-8 ####[facility]THNIA [id number] [place] [address] [place] ALP [Catalytic activity/Vol] 66 U/L Normal 34-123 [facility] Comment on above: Order Comment: Speci men Type: BLOOD SPECIMENOrdering Facility: [facility] Address: [address] [place] [address] Performed By: #### 2 4323-8 ####[facility] NORTHNCLIA [id number] [place] [address] [place] ALT [Catalytic activity/Vol] 18 U/L Normal 7-38 [facility] Comment on above: Order Comment: Speci men Type: BLOOD SPECIMENOrdering Facility: [facility] Address: [address] [place] [address] Performed By: #### 2 4323-8 ####[facility] MAURYWNCLIA [id number] [place] [address] [place] Anion gap [Moles/Vol] 13 mmol/L Normal 8-15 [facility] Comment on above: Order Comment: Speci men Type: BLOOD SPECIMENOrdering Facility: [facility] Address: [address] [place] [address] Performed By: #### 2 4323-8 ####[facility] NORTHNCLIA [id number] [place] [address] [place] AST [Catalytic activity/Vol] 21 U/L Normal 13-35 [facility] Comment on above: Order Comment: Speci men Type: BLOOD SPECIMENOrdering Facility: [facility] Address: [address] [place] [address] Performed By: #### 2 4323-8 ####[facility] [id number] [place] [address] [place] Bilirubin [Mass/Vol] 0.2 mg/dL Normal 0.2-1.3 [facility] Comment on above: Order Comment: Speci men Type: BLOOD SPECIMENOrdering Facility: [facility] Address: [address] [place] [address] Performed By: #### 2 4323-8 ####[facility] NORTHNCLIA [id number] [place] [address] [place] Calcium [Mass/Vol] 9.6 mg/dL Normal 8.5-10.2 [facility] Comment on above: Order Comment: Speci men Type: BLOOD SPECIMENOrdering Facility: [facility] Address: [address] [place] [address] Performed By: #### 2 4323-8 ####[facility] MILLTOWNCLIA [id number] [place] [address] [place] Chloride [Moles/Vol] 102 mmol/L Normal 98-107 [facility] Comment on above: Order Comment: Speci men Type: BLOOD SPECIMENOrdering Facility: [facility] Address: [address] [place] [address] Performed By: #### 2 4323-8 ####[facility]ITALWNCLIA [id number] [place] [address] [place] CO2 [Moles/Vol] 23 mmol/L Normal 22-30 [facility] Comment on above: Order Comment: Speci men Type: BLOOD SPECIMENOrdering Facility: [facility] Address: [address] [place] [address] Performed By: #### 2 4323-8 ####[facility] HOSPITALLIA [id number] [place] [address] [place] Creatinine [Mass/Vol] 1.47 mg/dL High 0.58-0.96 [facility] Comment on above: Order Comment: Speci men Type: BLOOD SPECIMENOrdering Facility: [facility] Address: [address] [place] [address] Performed By: #### 2 4323-8 ####[facility] NORTHNCLIA [id number] [place] [address] [place] [facility] Creatinine and Glomerular filtration rate.predicted panel (S/P/Bld) 39 mL/min/1.73m??? Low >=60 [facility] Comment on above: Order Comment: Speci men Type: BLOOD SPECIMENOrdering Facility: [facility] Address: [address] [place] [address] Result Comment: Sherlyn mated Glomerular Filtration Rate (eGFR) is calculated using the 2020 CKD-EPI creatinine equation. This equation utilizes serum creatinine, sex, and age as parameters. The creatinine assay has traceable calibration to isotope dilution-mass spectrometry. Refer to KDIGO guidelines for clinical interpretation. In patients with unstable renal function, e.g. those with acute kidney injury, the eGFR may not accurately reflect actual GFR. Performed By: #### 2 4323-8 ####[facility]OSPITALWCARLOSLIA [id number] [place] [address] [place] Glucose [Mass/Vol] 261 mg/dL High 74-99 [facility] Comment on above: Order Comment: Speci men Type: BLOOD SPECIMENOrdering Facility: [facility] Address: [address] [place], [place] [address] Result Comment: The [place] Diabetes Association (ADA) provides guidance for cutoff values for fasting glucose and random glucose. The ADA defines fasting as no caloric intake for at least 8 hours. Fasting plasma glucose results between 100 to 125 mg/dL indicate increased risk for diabetes (prediabetes).Fasting plasma glucose results greater than or equal to 126 mg/dL meet the criteria for diagnosis of diabetes. In the absence of unequivocal hyperglycemia, results should be confirmed by repeat testing. In a patient with classic symptoms of hyperglycemia or hyperglycemic crisis, random plasma glucose results greater than or equal to 200 mg/dL meet the criteria for diagnosis of diabetes.Reference: Standards of Medical Care in Diabetes 2016, [place] [employer] Association. Diabetes Care. 2016.39(Suppl 1). Performed By: #### 2 4323-8 ####[facility] HOSPITALLIA [id number] [place] [address] [place] Potassium [Moles/Vol] 4.1 mmol/L Normal 3.7-5.1 [facility] Comment on above: Order Comment: Speci men Type: BLOOD SPECIMENOrdering Facility: [facility] Address: [address] [place] [address] Performed By: #### 2 4323-8 ####[facility]OSPITALWNCLIA [id number] [place] [address] [place] Protein [Mass/Vol] 7.3 g/dL Normal 6.3-8.0 [facility] Comment on above: Order Comment: Speci men Type: BLOOD SPECIMENOrdering Facility: [facility] Address: [address] [place] [address] Performed By: #### 2 4323-8 ####[facility] [id number] [place] [address] [place] Sodium [Moles/Vol] 138 mmol/L Normal 136-144 [facility] Comment on above: Order Comment: Speci men Type: BLOOD SPECIMENOrdering Facility: [facility] Address: [address] [place] [address] Performed By: #### 2 4323-8 ####[facility] NORTHNCLI [id number] [place] [address] [place] Urea nitrogen [Mass/Vol] 44 mg/dL High 7-21 [facility] Comment on above: Order Comment: Speci men Type: BLOOD SPECIMENOrdering Facility: [facility] Address: [address] [place] [address] Performed By: #### 2 4323-8 ####[facility]NCLI [id number] [address] [place] [id number] 08-31-2024 [id number] HNO ID: [id number] Author: MILAGROS BROWN PT Service: ? Author Type: Physical Therapist Type: [id number] Filed: 08/31/2024 10:40 Note Text: [facility] Physical Therapy Plan of Care Certification Patient Name: Pat Sorto : 1960 [facility] #: [id number] Date: 08/27/2024 To: Micki Butler APRN.PLATEN GRINDER From Therapist: Milagros Brown PT RE: Patient Certification/ Recertification Your review, approval and electronic signature are required in order to comply with Payor: MEDICARE / Plan: MEDICARE A AND B / Product Type: Medicare / regulations. The identified Physical Therapy PLAN OF CARE for the patient is as follows: I89.0 Lymphedema of left arm (primary encounter diagnosis) Z85.3 History of breast cancer Z98.890 S/P breast reconstruction N64.89 Seroma of breast PLAN OF CARE: Assessment: Pat Sorto presents with diagnosis of s/p left breast implant removal with left UE lymphedema that interferes with gripping, pulling, twisting . The patient presents with impairments in edema management. PROMIS? (Patient-Reported Outcomes Measurement Information System) scores were reviewed and identified as a rehabilitation concern. Prognosis for therapy is Good due to: current objective clinical presentation . Noting myofascial tightness in chest wall with good scar mobility, lymphedema left UE , hand. The patient will benefit from skilled therapy services to meet the goals established for this plan of care as noted below. Goals for Episode of Care: established 08/27/24 Patient / family knowledgeable re: all pertinent aspects of CDT Patient / family independent with donning / doffing compression garment and proper wearing schedule and care of garment Patient / family independent with home exercise program Patient will decrease circumferential measurements by 1-2 cm in the following areas: left UE and hand for decreased recurrence of infection, improved mobility, improved range of motion and allow appropriate fit in compressive garment . Patient Goals: Ease swelling Time Frame for Goals and Treatment : 09/28/24 Planned Interventions, Frequency, and Duration: Current Frequency: 2x/week Duration: 4 weeks Total Number of Visits Planned: 8 Planned Treatment Interventions: Therapeutic exercise (39115), Manual therapy (87941), Self-retirement management (59338), Patient/Family/Caregive r Education, Therapeutic activities (01255) (lymphedema program) PLAN FOR NEXT VISIT: lymphedema program Patient demonstrates good understanding of plan of care and treatment. The above goals and plan of care were discussed and agreed upon by patient/family. For further details regarding this patient refer to the Physical Therapy electronically documented visit dated 08/27/2024. Provider Attestation I have reviewed the treatment plan for Pat Sorto, CCF# [id number] for the period of 08/27/24 -- 10/26/24, established on 08/27/2024. Signature certifies the need for therapy services. [facility] CNTHERAPYon 08-27-2024 CNTHERAPY OT/PT/Speech Visit (PNORCA) PAT SORTO ([id number]) 1960 F [place] Date Time Provider Department 08/27/24 11:00 AM [facility] Date Time Provider Department Center 08/27/2024 11:00 AM [id number]-OBOEGSYN, CAROL A RUST N Reason for Visit: PT Eval [747] Primary Visit Diagnosis:Lymphedema of left arm [I89.0] Other Visit Diagnoses:History of breast cancer [Z85.3] S/P breast reconstruction [Z98.890] Seroma of breast [N64.89] Allergies As of Date: 08/27/2024 Noted Allergy Reaction AMOXICILLIN 11/15/2022 2 - Rash Comments: rash arms trunk neck face, itching Chills Tolerates Ancef Date Reviewed: 08/11/2024 Reviewed by: Tatianna Crook [facility] - Fully Assessed Prescriptions as of 08/31/2024 - insulin glargine (LANTUS SOLOSTAR U-100 INSULIN) 100 unit/mL (3 mL) Inject 26 Units subcutaneously every morning. - DROPLET PEN NEEDLE 31 gauge x 3/16 1 each two times a day. - hydroCHLOROthiazide 25 mg tablet Take 25 mg by mouth once daily. - amLODIPine (NORVASC) 5 mg tablet Take 5 mg by mouth once daily. - traZODone (DESYREL) 50 mg tablet Take 1 tablet by mouth daily at bedtime. - metoprolol succinate ER (TOPROL XL) 25 mg 24 hr tablet take 1 tablet by mouth once daily - exemestane (AROMASIN) 25 mg tablet Take 1 tablet by mouth once daily. - losartan (COZAAR) 100 mg tablet Take 1 tablet by mouth every afternoon. - ursodiol (LEENA) 250 mg tablet Take 250 mg by mouth two times a day. - everolimus, antineoplastic, (AFINITOR) 10 mg tablet TAKE 1 TABLET ONCE DAILY - Sodium Fluoride, Dental Rinse, 0.2 % SWISH 10 ML BY MOUTH THEN SPIT ONCE WEEKLY - diphenhydrAMINE-Acetami nophen (TYLENOL PM EXTRA STRENGTH) 25-500 mg tab Take 1 tablet by mouth at bedtime as needed. - AquacueTOUCH ULTRA PLUS TEST strp 1 Each two times a day. E11.65; No insulin - Lancets Use with blood glucose test two times a day. Insulin Dep? No - blood sugar diagnostic (BLOOD GLUCOSE TEST) test strip Use with blood glucose test two times a day. Insulin Dep? No - aspirin, enteric coated (ASPIRIN, ENTERIC COATED) 81 mg EC tablet Take 81 mg by mouth once daily. - pantoprazole DR (PROTONIX) 40 mg tablet Take 40 mg by mouth daily before breakfast. - ascorbic acid, vitamin C, (VITAMIN C) 500 mg tablet Take 500 mg by mouth once daily. - alpha tocopheryl acetate (VITAMIN E) 400 unit capsule Take 400 Units by mouth once daily. - cyanocobalamin (VITAMIN B-12) 1,000 mcg tab Take 500 mcg by mouth once daily. - VITAMIN D 50,000 unit capsule 1 capsule one time a week. - CALCIUM CARBONATE (CALCIUM 500 ORAL) Take 1 tablet by mouth once daily. Normal [facility] CBC W Auto Differential pane l (Bld)on 08-04-2024 Basophils (Bld) [#/Vol] 0.04 10*3/uL Normal <0.11 [facility] Comment on above: Order Comment: Speci men Type: BLOOD SPECIMENOrdering Facility: [facility] Address: [address] [place] [address] Performed By: #### 5 7021-8 ####[facility] [id number] [place] [address] [place] Basophils/100 WBC (Bld) 0.7 % Normal C [facility] Comment on above: Order Comment: Speci men Type: BLOOD SPECIMENOrdering Facility: [facility] Address: [address] [place] [address] Performed By: #### 5 7021-8 ####[facility] [id number] [place] [address] [place] Differential cell count method Nom (Bld) Auto Normal [facility] Comment on above: Order Comment: Speci men Type: BLOOD SPECIMENOrdering Facility: [facility] Address: [address] [place] [address] Performed By: #### 5 7021-8 ####[facility] [id number] [place] [address] [place] Eosinophils (Bld) [#/Vol] 0.09 10*3/uL Normal <0.46 [facility] Comment on above: Order Comment: Speci men Type: BLOOD SPECIMENOrdering Facility: [facility] Address: [address] [place] [address] Performed By: #### 5 7021-8 ####[facility] [id number] [place] [address] [place] Eosinophils/100 WBC (Bld) 1.6 % Normal [facility] Comment on above: Order Comment: Speci men Type: BLOOD SPECIMENOrdering Facility: [facility] Address: [address] [place] [address] Performed By: #### 5 7021-8 ####[facility] [id number] [place] [address] [place] Erythrocyte distribution width (RBC) [Ratio] 14.6 % Normal 11.5-15.0 [facility] Comment on above: Order Comment: Speci men Type: BLOOD SPECIMENOrdering Facility: [facility] Address: [address] [place] [address] Performed By: #### 5 7021-8 ####[facility] [id number] [place] [address] [place] Hematocrit (Bld) [Volume fraction] 35.1 % Low 36.0-46.0 [facility] Comment on above: Order Comment: Speci men Type: BLOOD SPECIMENOrdering Facility: [facility] Address: [address] [place] [address] Performed By: #### 5 7021-8 ####[facility] MAURYJaneeNCSADAF [id number] [place] [address] [place] Hemoglobin (Bld) [Mass/Vol] 11.8 g/dL Normal 11.5-15.5 [facility] Comment on above: Order Comment: Speci men Type: BLOOD SPECIMENOrdering Facility: [facility] Address: [address] [place] [address] Performed By: #### 5 7021-8 ####[facility] [id number] [place] [address] [place] Immature granulocytes (Bld) [#/Vol] 10*3/uL Normal <0.10 [facility] Comment on above: Order Comment: Speci men Type: BLOOD SPECIMENOrdering Facility: [facility] Address: [address] [place] [address] Performed By: #### 5 7021-8 ####[facility] [id number] [place] [address] [place] Immature granulocytes/100 WBC (Bld) 0.2 % Normal [facility] Comment on above: Order Comment: Speci men Type: BLOOD SPECIMENOrdering Facility: [facility] Address: [address] [place] [address] Performed By: #### 5 7021-8 ####[facility] [id number] [place] [address] [place] Lymphocytes (Bld) [#/Vol] 1.40 10*3/uL Normal 1.00-4.00 [facility] Comment on above: Order Comment: Speci men Type: BLOOD SPECIMENOrdering Facility: [facility] Address: [address] [place], [place] [address] Performed By: #### 5 7021-8 ####[facility] [id number] [place] [address] [place] Lymphocytes/100 WBC (Bld) 25.2 % Normal [facility] Comment on above: Order Comment: Speci men Type: BLOOD SPECIMENOrdering Facility: [facility] Address: [address] [place] [address] Performed By: #### 5 7021-8 ####[facility] [id number] [place] [address] [place] MCH (RBC) [Entitic mass] 28.6 pg Normal 26.0-34.0 [facility] Comment on above: Order Comment: Speci men Type: BLOOD SPECIMENOrdering Facility: [facility] Address: [address] [place] [address] Performed By: #### 5 7021-8 ####[facility]IT[facility] [id number] [place] [address] [place] MCHC (RBC) [Mass/Vol] 33.6 g/dL Normal 30.5-36.0 [facility] Comment on above: Order Comment: Speci men Type: BLOOD SPECIMENOrdering Facility: [facility] Address: [address] [place] [address] Performed By: #### 5 7021-8 ####[facility] [id number] [place] [address] [place] MCV (RBC) [Entitic vol] 85.2 fL Normal 80.0-100.0 C [facility] Comment on above: Order Comment: Speci men Type: BLOOD SPECIMENOrdering Facility: [facility] Address: [address] [place] [address] Performed By: #### 5 7021-8 ####[facility] [id number] [place] [address] [place] Monocytes (Bld) [#/Vol] 0.39 10*3/uL Normal <0.87 [facility] Comment on above: Order Comment: Speci men Type: BLOOD SPECIMENOrdering Facility: [facility] Address: [address] [place] [address] Performed By: #### 5 7021-8 ####[facility] MILLWNCLIA [id number] [place] [address] [place] Monocytes/100 WBC (Bld) 7.0 % Normal [facility] Comment on above: Order Comment: Speci men Type: BLOOD SPECIMENOrdering Facility: [facility] Address: [address] [place] [address] Performed By: #### 5 7021-8 ####[facility]PIT[facility] [id number] [place] [address] [place] Neutrophils (Bld) [#/Vol] 3.63 10*3/uL Normal 1.45-7.50 [facility] Comment on above: Order Comment: Speci men Type: BLOOD SPECIMENOrdering Facility: [facility] Address: [address] [place] [address] Performed By: #### 5 7021-8 ####[facility] [id number] [place] [address] [place] Neutrophils/100 WBC (Bld) 65.3 % Normal [facility] Comment on above: Order Comment: Speci men Type: BLOOD SPECIMENOrdering Facility: [facility] Address: [address] [place] [address] Performed By: #### 5 7021-8 ####[facility] [id number] [place] [address] [place] Nucleated RBC (Bld) [#/Vol] 10*3/uL Normal <0.01 [facility] Comment on above: Order Comment: Speci men Type: BLOOD SPECIMENOrdering Facility: [facility] Address: [address] [place] [address] Performed By: #### 5 7021-8 ####[facility] MAURYJaneeNCSADAF [id number] [place] [address] [place] Nucleated RBC/100 WBC (Bld) [Ratio] 0.0 /100 WBC Normal [facility] Comment on above: Order Comment: Speci men Type: BLOOD SPECIMENOrdering Facility: [facility] Address: [address] [place] [address] Performed By: #### 5 7021-8 ####[facility]THNCLIKey [id number] [place] [address] [place] Platelet mean volume (Bld) [Entitic vol] 10.0 fL Normal 9.0-12.7 [facility] Comment on above: Order Comment: Speci men Type: BLOOD SPECIMENOrdering Facility: [facility] Address: [address] [place] [address] Performed By: #### 5 7021-8 ####[facility] [id number] [place] [address] [place] Platelets (Bld) [#/Vol] 192 10*3/uL Normal 150-400 [facility] Comment on above: Order Comment: Speci men Type: BLOOD SPECIMENOrdering Facility: [facility] Address: [address] [place] [address] Performed By: #### 5 7021-8 ####[facility] [id number] [place] [address] [place] RBC (Bld) [#/Vol] 4.12 10*6/uL Normal 3.90-5.[address] [facility] Comment on above: Order Comment: Speci men Type: BLOOD SPECIMENOrdering Facility: [facility] Address: [address] [place] [address] Performed By: #### 5 7021-8 ####[facility] MILLTORWNCLIA [id number] [place] [address] [place] WBC (Bld) [#/Vol] 5.56 10*3/uL Normal 3.70-11.[address] [facility] Comment on above: Order Comment: Speci men Type: BLOOD SPECIMENOrdering Facility: [facility] Address: [address] [place] [address] Performed By: #### 5 7021-8 ####[facility] MAURYTORWNCLIA [id number] [place] [address] [place] Comprehensive metabolic 2000 panelon 08-04-2024 Albumin [Mass/Vol] 4.0 g/dL Normal 3.9-4.9 [facility] Comment on above: Order Comment: Speci men Type: BLOOD SPECIMENOrdering Facility: [facility] Address: [address] [place] [address] Performed By: #### 2 4323-8 ####[facility] MAURYSIMONENCLIA [id number] [place] [address] [place] ALP [Catalytic activity/Vol] 67 U/L Normal 34-123 [facility] Comment on above: Order Comment: Speci men Type: BLOOD SPECIMENOrdering Facility: [facility] Address: [address] [place] [address] Performed By: #### 2 4323-8 ####[facility] MAURYTORWNCLIA [id number] [place] [address] [place] ALT [Catalytic activity/Vol] 16 U/L Normal 7-38 [facility] Comment on above: Order Comment: Speci men Type: BLOOD SPECIMENOrdering Facility: [facility] Address: [address] [place] [address] Performed By: #### 2 4323-8 ####[facility] MILLTOWNCLIA [id number] [place] [address] [place] Anion gap [Moles/Vol] 9 mmol/L Normal 8-15 [facility] Comment on above: Order Comment: Speci men Type: BLOOD SPECIMENOrdering Facility: [facility] Address: [address] [place] [address] Performed By: #### 2 4323-8 ####[facility] MILLTOWNCLIA [id number] [place] [address] [place] AST [Catalytic activity/Vol] 22 U/L Normal 13-35 [facility] Comment on above: Order Comment: Speci men Type: BLOOD SPECIMENOrdering Facility: [facility] Address: [address] [place] [address] Performed By: #### 2 4323-8 ####[facility] [id number] [place] [address] [place] Bilirubin [Mass/Vol] 0.3 mg/dL Normal 0.2-1.3 [facility] Comment on above: Order Comment: Speci men Type: BLOOD SPECIMENOrdering Facility: [facility] Address: [address] [place] [address] Performed By: #### 2 4323-8 ####[facility] MILLWNCLIA [id number] [place] [address] [place] Calcium [Mass/Vol] 9.3 mg/dL Normal 8.5-10.2 [facility] Comment on above: Order Comment: Speci men Type: BLOOD SPECIMENOrdering Facility: [facility] Address: [address] [place] [address] Performed By: #### 2 4323-8 ####[facility] MILLWNCLIA [id number] [place] [address] [place] Chloride [Moles/Vol] 105 mmol/L Normal 98-107 [facility] Comment on above: Order Comment: Speci men Type: BLOOD SPECIMENOrdering Facility: [facility] Address: [address] [place] [address] Performed By: #### 2 4323-8 ####[facility] [id number] [place] [address] [place] CO2 [Moles/Vol] 27 mmol/L Normal 22-30 [facility] Comment on above: Order Comment: Speci men Type: BLOOD SPECIMENOrdering Facility: [facility] Address: [address] [place] [address] Performed By: #### 2 4323-8 ####[facility] [id number] [place] [address] [place] Creatinine [Mass/Vol] 1.06 mg/dL High 0.58-0.96 [facility] Comment on above: Order Comment: Speci men Type: BLOOD SPECIMENOrdering Facility: [facility] Address: [address] [place] [address] Performed By: #### 2 4323-8 ####[facility] [id number] [address] [facility] Creatinine and Glomerular filtration rate.predicted panel (S/P/Bld) 58 mL/min/1.73m??? Low >=60 [facility] Comment on above: Order Comment: Speci men Type: BLOOD SPECIMENOrdering Facility: [facility] Address: [address] [place] [address] Result Comment: Sherlyn mated Glomerular Filtration Rate (eGFR) is calculated using the 2020 CKD-EPI creatinine equation. This equation utilizes serum creatinine, sex, and age as parameters. The creatinine assay has traceable calibration to isotope dilution-mass spectrometry. Refer to KDIGO guidelines for clinical interpretation. In patients with unstable renal function, e.g. those with acute kidney injury, the eGFR may not accurately reflect actual GFR. Performed By: #### 2 4323-8 ####[facility] MILLTOWNCLIA [id number] [place] [address] [place] Glucose [Mass/Vol] 150 mg/dL High 74-99 [facility] Comment on above: Order Comment: Speci men Type: BLOOD SPECIMENOrdering Facility: [facility] Address: [address] [place], [place] [address] Result Comment: The [place] Diabetes Association (ADA) provides guidance for cutoff values for fasting glucose and random glucose. The ADA defines fasting as no caloric intake for at least 8 hours. Fasting plasma glucose results between 100 to 125 mg/dL indicate increased risk for diabetes (prediabetes).Fasting plasma glucose results greater than or equal to 126 mg/dL meet the criteria for diagnosis of diabetes. In the absence of unequivocal hyperglycemia, results should be confirmed by repeat testing. In a patient with classic symptoms of hyperglycemia or hyperglycemic crisis, random plasma glucose results greater than or equal to 200 mg/dL meet the criteria for diagnosis of diabetes.Reference: Standards of Medical Care in Diabetes 2016, [place] [employer]. Diabetes Care. 2016.39(Suppl 1). Performed By: #### 2 4323-8 ####[facility] MILLWNCLIA [id number] [place] [address] [place] Potassium [Moles/Vol] 4.1 mmol/L Normal 3.7-5.1 [facility] Comment on above: Order Comment: Speci men Type: BLOOD SPECIMENOrdering Facility: [facility] Address: [address] [place] [address] Performed By: #### 2 4323-8 ####[facility] MILLWNCLIA [id number] [place] [address] [place] Protein [Mass/Vol] 7.4 g/dL Normal 6.3-8.0 [facility] Comment on above: Order Comment: Speci men Type: BLOOD SPECIMENOrdering Facility: [facility] Address: [address] [place] [address] Performed By: #### 2 4323-8 ####[facility]IT[facility] [id number] [place] [address] [place] Sodium [Moles/Vol] 141 mmol/L Normal 136-144 [facility] Comment on above: Order Comment: Speci men Type: BLOOD SPECIMENOrdering Facility: [facility] Address: [address] [place] [address] Performed By: #### 2 4323-8 ####[facility] MAURYWMNLIA [id number] [place] [address] [place] Urea nitrogen [Mass/Vol] 30 mg/dL High 7-21 [facility] Comment on above: Order Comment: Speci men Type: BLOOD SPECIMENOrdering Facility: [facility] Address: [address] [place] [address] Performed By: #### 2 4323-8 ####[facility]IT[facility] [id number] [place] [address] [place] Anion gap in Serum or Plasma Ordered By: Rector Nata on 08-03-2024 Anion gap [Moles/Vol] 11 mmol/L 5-15 [facility] BUN/creatinine ratioOrdered By: Andrea Nata on 08-03-2024 Urea nitrogen/Creatinine [Mass ratio] 34.2 mg/mg High 10- [facility] Basic Metabolic Profile (BMP )on 08-03-2024 BUN/CRE 34.2 RATIO High 10- [facility] Comment on above: Performed By: #### L 500.2500 #### [facility] [address] [facility] [address] Calcium [Mass/Vol] 9.3 mg/dL Normal 7.6-11.0 [facility] Comment on above: Performed By: #### L 500.2500 #### [facility] [address] [place], [address] Chloride [Moles/Vol] 103 mmol/L Normal 98-108 [facility] Comment on above: Performed By: #### L 500.2500 #### [facility] [address] [place], [address] CO2 [Moles/Vol] 24.7 mmol/L Normal 21.0-32.0 [facility] Comment on above: Performed By: #### L 500.2500 #### [facility] [address] [place], [address] Creatinine [Mass/Vol] 0.84 mg/dL Normal 0.70-1.20 [facility] Comment on above: Performed By: #### L 500.2500 #### [facility] [address] [place], [address] GAP 11 Normal 5-15 [facility] Comment on above: Performed By: #### L 500.2500 #### [facility] [address] [place], [address] GFR/1.73 sq M.predicted among non-blacks MDRD (S/P/Bld) [Vol rate/Area] 77 mL/min/{1.73_m2} Normal >60 [facility] Comment on above: Result Comment: mL/m in/1.73m2 CKD-EPI Creatinine Equation (2020) Performed By: #### L 500.2500 #### [facility] [address] [place], [address] Glucose [Mass/Vol] 153 mg/dL High 70-99 [facility] Comment on above: Performed By: #### L 500.2500 #### [facility] [address] [place], [address] Potassium [Moles/Vol] 3.9 mmol/L Normal 3.3-5.1 [facility] Comment on above: Result Comment: Hemo lysis present, Results??could be affected. ?? Performed By: #### L 500.2500 #### [facility] [address] [place], [place], [address] Sodium [Moles/Vol] 139 mmol/L Normal 133-145 [facility] Comment on above: Performed By: #### L 500.2500 #### [facility] [address] [place], [place], [address] Urea nitrogen [Mass/Vol] 29 mg/dL High 4-19 [facility] Comment on above: Performed By: #### L 500.2500 #### [facility] [address] [place], [place], [id number] CNOVon 08-03-2024 CNOV Normal [facility] Carbon dioxide, total [Moles /volume] in Central venous bloodOrdered By: Andrea Peace on 08-03-2024 CO2 [Moles/Vol] 24.7 mmol/L 21.0-32.0 [facility] Chloride assayOrdered By: Silvino Peace on 08-03-2024 Chloride [Moles/Vol] 103 mmol/L 98-108 [facility] Glomerular filtration rate ( GFR) estimation/1.73 sq m using serum, plasma, or whole bOrdered By: Andrea Peace on 08-03-2024 GFR/1.73 sq M.predicted among non-blacks MDRD (S/P/Bld) [Vol rate/Area] 77 mL/min/{1.73_m2} >60 [facility] Comment on above: mL/min/1.73m2 CKD-EP I Creatinine Equation (2020) Potassium measurement (mass/ volume)Ordered By: Andrea Peace on 08-03-2024 Potassium (Unsp spec) [Mass/Vol] 3.9 mmol/L 3.3-5.1 [facility] Comment on above: Hemolysis present, R esults could be affected. Serum creatinine measurement (mass/volume)Ordered By: Andrea Peace on 08-03-2024 Creatinine [Mass/Vol] 0.84 mg/dL 0.70-1.20 [facility] Serum glucose measurement (m ass/volume)Ordered By: Andrea Peace on 08-03-2024 Glucose [Mass/Vol] 153 mg/dL High 70-99 [facility] Serum or plasma calcium ashley urement (mass/volume)Ordered By: Andrea Peace on 08-03-2024 Calcium [Mass/Vol] 9.3 mg/dL 7.6-11.0 [facility] Serum or plasma urea nitroge n measurement (mass/volume)Ordered By: Andrea Peace on 08-03-2024 Urea nitrogen [Mass/Vol] 29 mg/dL High 4-19 [facility] Sodium levelOrdered By: Chicho Peace on 08-03-2024 Sodium [Moles/Vol] 139 mmol/L 133-145 [facility] CNOVon 07-15-2024 CNOV Office Visit (ELIJAH ) PAT SORTO ([id number]) 1960 F [place] Date Time Provider Department 07/15/24 1:00 PM MICKI BUTLER During your visit today, we recorded the following information about you: Temperature 97 degrees Micki Butler APRN.PLATEN GRINDER 07/15/2024 1:31 PM Signed Plastic Surgery Post Op Note CC: post op HPI: Pat Angelita Sorto is a 64 year old female who presents s/p Date of Surgery: 05/18/2024 Surgery: Left Breast Total Capsulectomy and Implant Removal Time Postop: 8 weeks Pt presents for routine post-op visit. Pain: control is good with medications (Tylenol) Drainage from incisions: denies Fever/chills: denies Activity: able to participate in ADLs within recommended restrictions Appetite: low appetite 06/04 35 cc seroma aspirated from left breast 06/25 60 cc seroma aspirated from left breast 07/06 40 cc seroma aspirated from left breast Left breast has some fluid reaccumulation. Completed course of doxycycline that was ordered at [facility]. Hx Radiation Therapy: Yes- completed 12/2017 Hx Chemotherapy: Yes- completed in 2018 Hx of DM, on insulin HBa1c 6.8 recently Wiund culture from 06/25/24 WOUND CULTURE No growth Smear Result No organisms seen No Polymorphonuclear Leukocytes Surgical pathology FINAL DIAGNOSIS 1. Left chest, skin, excision (A) - Invasive ductal carcinoma, Negro grade 3, involving subcutis, dermis and epidermis (including ulceration), (see comment). 2. Left breast implant, excision and removal (B) - Amorphous acellular material. -Breast implant (gross evaluation only). 3. Left breast, inframammary fold, excision (C) - Invasive ductal carcinoma, Negro grade 3, spanning greater than 50 mm, involving capsule, subcutis, dermis and epidermis (including ulceration), (see comment). 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 Husam Hart in [place] PAST SURGICAL HISTORY Procedure Laterality Date ARTHRP ACETBLR/PROX FEM PROSTC AGRFT/ALGRFT Right 03/20/2019 Hip replacement, total ARTHRP KNE CONDYLEANDPLATU MEDIALANDLAT COMPARTMENTS Left 02/2016 BIOPSY BREAST OPEN INCISIONAL Left 2007 [facility] benign pathology per patient BREAST RECONSTRUCTION Left 2018 fat graft/implant exchange DELIVERY ONLY 1996,1993 , low transverse MASTECTOMY HX Left 2017 AND with immediate reconstruction MASTECTOMY, SIMPLE, COMPLETE Left 05/18/2024 removal of implant, WLE of chest wall PAST SURGICAL HISTORY OF 2022 bronchoscopy Current Outpatient Medications on File Prior to Visit Medication Sig metoprolol succinate ER (TOPROL XL) 25 mg 24 hr tablet take 1 tablet by mouth once daily spironolactone (ALDACTONE) 25 mg tablet Take 1 tablet by mouth once daily. exemestane (AROMASIN) 25 mg tablet Take 1 tablet by mouth once daily. losartan (COZAAR) 100 mg tablet Take 1 tablet by mouth every afternoon. insulin glargine (LANTUS SOLOSTAR U-100 INSULIN) 100 unit/mL (3 mL) Inject 20 Units subcutaneously every morning. LORazepam (ATIVAN) 0.5 mg Take 1 tablet by mouth three times a day as needed for up to 90 days. DROPLET PEN NEEDLE 31 gauge x 3/16 1 Each two times a day. ursodiol (LEENA) 250 mg tablet Take 250 mg by mouth two times a day. everolimus, antineoplastic, (AFINITOR) 10 mg tablet TAKE 1 TABLET ONCE DAILY Sodium Fluoride, Dental Rinse, 0.2 % SWISH 10 ML BY MOUTH THEN SPIT ONCE WEEKLY diphenhydrAMINE-Acetami nophen (TYLENOL PM EXTRA STRENGTH) 25-500 mg tab Take 1 tablet by mouth at bedtime as needed. AquacueTOUCH ULTRA PLUS TEST strp 1 Each two times a day. E11.65; No insulin Lancets Use with blood glucose test two times a day. Insulin Dep? No blood sugar diagnostic (BLOOD GLUCOSE TEST) test strip Use with blood glucose test two times a day. Insulin Dep? No aspirin, enteric coated (ASPIRIN, ENTERIC COATED) 81 mg EC tablet Take 81 mg by mouth once daily. pantoprazole DR (PROTONIX) 40 mg tablet Take 40 mg by mouth daily before breakfast. ascorbic acid, vitamin C, (VITAMIN C) 500 mg tablet Take 500 mg by mouth once daily. alpha tocopheryl acetate (VITAMIN E) 400 unit capsule Take 400 Units by mouth once daily. cyanocobalamin (VITAMIN B-12) 1,000 mcg tab Take 500 mcg by mouth once daily. VITAMIN D 50,000 unit capsule 1 capsule one time a week. CALCIUM CARBONATE (CALCIUM 500 ORAL) Take 1 tablet by mouth once daily. No current facility-administered medications on file prior to visit. There were no vitals taken for this visit. PE Alert and oriented in NAD on room air Left breast flat (more content not included)... Normal [facility] CNPNon 07-10-2024 CNPN Normal [facility] CNOVSPon 07-09-2024 CNOVSP Normal [facility] ALBUMIN/CREATININE RATIO, UR INEon 07-08-2024 Albumin DL <= 20 mg/L (U) [Mass/Vol] 86.8 mg/L Normal [facility] Comment on above: Order Comment: Speci men Type: URINE SPECIMENOrdering Facility: [facility] Address: [address] [place], [place] [address] Performed By: #### U ACR ####[facility] LABCLIA [id number] [place] [address] [place] Albumin/Creatinine (U) [Mass ratio] 61 mg/g High <30 [facility] Comment on above: Order Comment: Speci men Type: URINE SPECIMENOrdering Facility: [facility] Address: [address] [place] [address] Result Comment: Adul t Male and Female Nephrotic Criteria:<30 mg/g is considered normal to mildly uxjuwudca30-191 mg/g is considered moderately increased>300 mg/g is considered severely increasedKDIGO. (2013). KDIGO 2012 Clinical Practice Guideline for the Evaluation and Management of Chronic Kidney Disease. Official Journal of the International Society of Nephrology, 3(1), 1-150. Performed By: #### U ACR ####[facility] LABIA [id number] [place] [address] [place] Creatinine (U) [Mass/Vol] 143.0 mg/dL Normal 20.0-300.0 [facility] Comment on above: Order Comment: Speci men Type: URINE SPECIMENOrdering Facility: [facility] Address: [address] [place] [address] Performed By: #### U ACR ####[facility]PITALIA [id number] [place] [address] [place] CBC W Auto Differential pane l (Bld)on 07-08-2024 Basophils (Bld) [#/Vol] 0.04 10*3/uL Normal <0.11 [facility] Comment on above: Order Comment: Speci men Type: BLOOD SPECIMENOrdering Facility: [facility] Address: [address] [place] [address] Performed By: #### 5 7021-8 ####[facility] SHARAD [facility] HOSPITALKey [id number] [place] [address] [place] Basophils/100 WBC (Bld) 0.6 % Normal C [facility] Comment on above: Order Comment: Speci men Type: BLOOD SPECIMENOrdering Facility: [facility] Address: [address] [place] [address] Performed By: #### 5 7021-8 ####[facility] MAURYLEJUNIORNCLIA [id number] [place] [address] [place] Differential cell count method Nom (Bld) Auto Normal [facility] Comment on above: Order Comment: Speci men Type: BLOOD SPECIMENOrdering Facility: [facility] Address: [address] [place] [address] Performed By: #### 5 7021-8 ####[facility] NORTHNCLIA [id number] [place] [address] [place] Eosinophils (Bld) [#/Vol] 0.09 10*3/uL Normal <0.46 [facility] Comment on above: Order Comment: Speci men Type: BLOOD SPECIMENOrdering Facility: [facility] Address: [address] [place] [address] Performed By: #### 5 7021-8 ####[facility]PITALA [id number] [place] [address] [place] Eosinophils/100 WBC (Bld) 1.4 % Normal [facility] Comment on above: Order Comment: Speci men Type: BLOOD SPECIMENOrdering Facility: [facility] Address: [address] [place] [address] Performed By: #### 5 7021-8 ####[facility] NORTHNCLIA [id number] [place] [address] [place] Erythrocyte distribution width (RBC) [Ratio] 14.9 % Normal 11.5-15.0 [facility] Comment on above: Order Comment: Speci men Type: BLOOD SPECIMENOrdering Facility: [facility] Address: [address] [place] [address] Performed By: #### 5 7021-8 ####[facility] NORTHNCLIA [id number] [place] [address] [place] Hematocrit (Bld) [Volume fraction] 38.7 % Normal 36.0-46.0 [facility] Comment on above: Order Comment: Speci men Type: BLOOD SPECIMENOrdering Facility: [facility] Address: [address] [place] [address] Performed By: #### 5 7021-8 ####[facility] NORTHYISSEL [id number] [place] [address] [place] Hemoglobin (Bld) [Mass/Vol] 13.3 g/dL Normal 11.5-15.5 [facility] Comment on above: Order Comment: Speci men Type: BLOOD SPECIMENOrdering Facility: [facility] Address: [address] [place] [address] Performed By: #### 5 7021-8 ####[facility]THCARLOSBL[facility] [id number] [place] [address] [place] Immature granulocytes (Bld) [#/Vol] 10*3/uL Normal <0.10 [facility] Comment on above: Order Comment: Speci men Type: BLOOD SPECIMENOrdering Facility: [facility] Address: [address] [place] [address] Performed By: #### 5 7021-8 ####[facility] HOSPITALASHAA [id number] [place] [address] [place] Immature granulocytes/100 WBC (Bld) 0.2 % Normal [facility] Comment on above: Order Comment: Speci men Type: BLOOD SPECIMENOrdering Facility: [facility] Address: [address] [place] [address] Performed By: #### 5 7021-8 ####[facility] CLERM[facility] HOSPITALLIA [id number] [place] [address] [place] Lymphocytes (Bld) [#/Vol] 1.72 10*3/uL Normal 1.00-4.00 [facility] Comment on above: Order Comment: Speci men Type: BLOOD SPECIMENOrdering Facility: [facility] Address: [address] [place] [address] Performed By: #### 5 7021-8 ####[facility] [id number] [place] [address] [place] Lymphocytes/100 WBC (Bld) 27.4 % Normal [facility] Comment on above: Order Comment: Speci men Type: BLOOD SPECIMENOrdering Facility: [facility] Address: [address] [place] [address] Performed By: #### 5 7021-8 ####[facility]NC[facility] [id number] [place] [address] [place] MCH (RBC) [Entitic mass] 28.7 pg Normal 26.0-34.0 [facility] Comment on above: Order Comment: Speci men Type: BLOOD SPECIMENOrdering Facility: [facility] Address: [address] [place] [address] Performed By: #### 5 7021-8 ####[facility] [id number] [place] [address] [place] MCHC (RBC) [Mass/Vol] 34.4 g/dL Normal 30.5-36.0 [facility] Comment on above: Order Comment: Speci men Type: BLOOD SPECIMENOrdering Facility: [facility] Address: [address] [place] [address] Performed By: #### 5 7021-8 ####[facility] [id number] [place] [address] [place] MCV (RBC) [Entitic vol] 83.4 fL Normal 80.0-100.0 C [facility] Comment on above: Order Comment: Speci men Type: BLOOD SPECIMENOrdering Facility: [facility] Address: [address] [place] [address] Performed By: #### 5 7021-8 ####[facility] MILLTOWNCLIA [id number] [place] [address] [place] Monocytes (Bld) [#/Vol] 0.44 10*3/uL Normal <0.87 [facility] Comment on above: Order Comment: Speci men Type: BLOOD SPECIMENOrdering Facility: [facility] Address: [address] [place] [address] Performed By: #### 5 7021-8 ####[facility] MILLWNCLIA [id number] [place] [address] [place] Monocytes/100 WBC (Bld) 7.0 % Normal [facility] Comment on above: Order Comment: Speci men Type: BLOOD SPECIMENOrdering Facility: [facility] Address: [address] [place] [address] Performed By: #### 5 7021-8 ####[facility] NORTHNCLIA [id number] [place] [address] [place] Neutrophils (Bld) [#/Vol] 3.98 10*3/uL Normal 1.45-7.50 [facility] Comment on above: Order Comment: Speci men Type: BLOOD SPECIMENOrdering Facility: [facility] Address: [address] [place] [address] Performed By: #### 5 7021-8 ####[facility] MILLTOWNCLIA [id number] [place] [address] [place] Neutrophils/100 WBC (Bld) 63.4 % Normal [facility] Comment on above: Order Comment: Speci men Type: BLOOD SPECIMENOrdering Facility: [facility] Address: [address] [place] [address] Performed By: #### 5 7021-8 ####[facility] MILLTOWNCLIA [id number] [place] [address] [place] Nucleated RBC (Bld) [#/Vol] 10*3/uL Normal <0.01 [facility] Comment on above: Order Comment: Speci men Type: BLOOD SPECIMENOrdering Facility: [facility] Address: [address] [place] [address] Performed By: #### 5 7021-8 ####[facility] NORTHNIA [id number] [place] [address] [place] Nucleated RBC/100 WBC (Bld) [Ratio] 0.0 /100 WBC Normal [facility] Comment on above: Order Comment: Speci men Type: BLOOD SPECIMENOrdering Facility: [facility] Address: [address] [place] [address] Performed By: #### 5 7021-8 ####[facility] NORTHNCKey [id number] [place] [address] [place] Platelet mean volume (Bld) [Entitic vol] 11.1 fL Normal 9.0-12.7 [facility] Comment on above: Order Comment: Speci men Type: BLOOD SPECIMENOrdering Facility: [facility] Address: [address] [place] [address] Performed By: #### 5 7021-8 ####[facility] NORTHNCSADAF [id number] [place] [address] [place] Platelets (Bld) [#/Vol] 152 10*3/uL Normal 150-400 [facility] Comment on above: Order Comment: Speci men Type: BLOOD SPECIMENOrdering Facility: [facility] Address: [address] [place] [address] Result Comment: No c lot detected. Performed By: #### 5 7021-8 ####[facility] NORTHNCLIKey [id number] [place] [address] [place] RBC (Bld) [#/Vol] 4.64 10*6/uL Normal 3.90-5.[address] [facility] Comment on above: Order Comment: Speci men Type: BLOOD SPECIMENOrdering Facility: [facility] Address: [address] [place] [address] Performed By: #### 5 7021-8 ####[facility] HOSPITALWNCLIA [id number] [place] [address] [place] WBC (Bld) [#/Vol] 6.28 10*3/uL Normal 3.70-11.[address] [facility] Comment on above: Order Comment: Speci men Type: BLOOD SPECIMENOrdering Facility: [facility] Address: [address] [place] [address] Performed By: #### 5 7021-8 ####[facility] NORTHNCLIA [id number] [place] [address] [place] Comprehensive metabolic 2000 panelon 07-08-2024 Albumin [Mass/Vol] 4.1 g/dL Normal 3.9-4.9 [facility] Comment on above: Order Comment: Speci men Type: BLOOD SPECIMENOrdering Facility: [facility] Address: [address] [place] [address] Performed By: #### 2 4323-8 ####[facility] NORTHNCLIA [id number] [place] [address] [place] ALP [Catalytic activity/Vol] 70 U/L Normal 34-123 [facility] Comment on above: Order Comment: Speci men Type: BLOOD SPECIMENOrdering Facility: [facility] Address: [address] [place] [address] Performed By: #### 2 4323-8 ####[facility] NORTHNCLIA [id number] [place] [address] [place] ALT [Catalytic activity/Vol] 12 U/L Normal 7-38 [facility] Comment on above: Order Comment: Speci men Type: BLOOD SPECIMENOrdering Facility: [facility] Address: [address] [place] [address] Performed By: #### 2 4323-8 ####[facility] MILLTOWNCLIA [id number] [place] [address] [place] Anion gap [Moles/Vol] 8 mmol/L Normal 8-15 [facility] Comment on above: Order Comment: Speci men Type: BLOOD SPECIMENOrdering Facility: [facility] Address: [address] [place] [address] Performed By: #### 2 4323-8 ####[facility] MILLWNCLIA [id number] [place] [address] [place] AST [Catalytic activity/Vol] 16 U/L Normal 13-35 [facility] Comment on above: Order Comment: Speci men Type: BLOOD SPECIMENOrdering Facility: [facility] Address: [address] [place] [address] Performed By: #### 2 4323-8 ####[facility] MILLTOWNCLIA [id number] [place] [address] [place] Bilirubin [Mass/Vol] 0.3 mg/dL Normal 0.2-1.3 [facility] Comment on above: Order Comment: Speci men Type: BLOOD SPECIMENOrdering Facility: [facility] Address: [address] [place] [address] Performed By: #### 2 4323-8 ####[facility] MILLTOWNCLIA [id number] [place] [address] [place] Calcium [Mass/Vol] 9.6 mg/dL Normal 8.5-10.2 [facility] Comment on above: Order Comment: Speci men Type: BLOOD SPECIMENOrdering Facility: [facility] Address: [address] [place] [address] Performed By: #### 2 4323-8 ####[facility] FLORIDAWNCLIA [id number] [place] [address] [place] Chloride [Moles/Vol] 99 mmol/L Normal 98-107 [facility] Comment on above: Order Comment: Speci men Type: BLOOD SPECIMENOrdering Facility: [facility] Address: [address] [place] [address] Performed By: #### 2 4323-8 ####[facility] HOSPITALLIA [id number] [place] [address] [place] CO2 [Moles/Vol] 28 mmol/L Normal 22-30 [facility] Comment on above: Order Comment: Speci men Type: BLOOD SPECIMENOrdering Facility: [facility] Address: [address] [place] [address] Performed By: #### 2 4323-8 ####[facility] [id number] [place] [address] [place] Creatinine [Mass/Vol] 1.16 mg/dL High 0.58-0.96 [facility] Comment on above: Order Comment: Speci men Type: BLOOD SPECIMENOrdering Facility: [facility] Address: [address] [place] [address] Performed By: #### 2 4323-8 ####[facility] HOSPITALLIA [id number] [place] [address] [place] [facility] Creatinine and Glomerular filtration rate.predicted panel (S/P/Bld) 52 mL/min/1.73m??? Low >=60 [facility] Comment on above: Order Comment: Speci men Type: BLOOD SPECIMENOrdering Facility: [facility] Address: [address] [place] [address] Result Comment: Sherlyn mated Glomerular Filtration Rate (eGFR) is calculated using the 2020 CKD-EPI creatinine equation. This equation utilizes serum creatinine, sex, and age as parameters. The creatinine assay has traceable calibration to isotope dilution-mass spectrometry. Refer to KDIGO guidelines for clinical interpretation. In patients with unstable renal function, e.g. those with acute kidney injury, the eGFR may not accurately reflect actual GFR. Performed By: #### 2 4323-8 ####[facility] HOSPITALWNCLIA [id number] [place] [address] [place] Glucose [Mass/Vol] 216 mg/dL High 74-99 [facility] Comment on above: Order Comment: Speci men Type: BLOOD SPECIMENOrdering Facility: [facility] Address: [address] [place], [place] [address] Result Comment: The [place] Diabetes Association (ADA) provides guidance for cutoff values for fasting glucose and random glucose. The ADA defines fasting as no caloric intake for at least 8 hours. Fasting plasma glucose results between 100 to 125 mg/dL indicate increased risk for diabetes (prediabetes).Fasting plasma glucose results greater than or equal to 126 mg/dL meet the criteria for diagnosis of diabetes. In the absence of unequivocal hyperglycemia, results should be confirmed by repeat testing. In a patient with classic symptoms of hyperglycemia or hyperglycemic crisis, random plasma glucose results greater than or equal to 200 mg/dL meet the criteria for diagnosis of diabetes.Reference: Standards of Medical Care in Diabetes 2016, [place] Diabetes Association. Diabetes Care. 2016.39(Suppl 1). Performed By: #### 2 4323-8 ####[facility] NORTHNCLIA [id number] [place] [address] [place] Potassium [Moles/Vol] 4.0 mmol/L Normal 3.7-5.1 [facility] Comment on above: Order Comment: Speci men Type: BLOOD SPECIMENOrdering Facility: [facility] Address: [address] [place] [address] Performed By: #### 2 4323-8 ####[facility]ITALA [id number] [place] [address] [place] Protein [Mass/Vol] 7.7 g/dL Normal 6.3-8.0 [facility] Comment on above: Order Comment: Speci men Type: BLOOD SPECIMENOrdering Facility: [facility] Address: [address] [place] [address] Performed By: #### 2 4323-8 ####[facility] [id number] [place] [address] [place] Sodium [Moles/Vol] 135 mmol/L Low 136-144 [facility] Comment on above: Order Comment: Speci men Type: BLOOD SPECIMENOrdering Facility: [facility] Address: [address] [place] [address] Performed By: #### 2 4323-8 ####[facility] [id number] [place] [address] [place] Urea nitrogen [Mass/Vol] 45 mg/dL High 7-21 [facility] Comment on above: Order Comment: Speci men Type: BLOOD SPECIMENOrdering Facility: [facility] Address: [address] [place] [address] Performed By: #### 2 4323-8 ####[facility] [id number] [place] [address] [place] HbA1c (Bld)on 07-08-2024 Average glucose Estimated from glycated hemoglobin (Bld) [Mass/Vol] 148 mg/dL Normal [facility] Comment on above: Order Comment: Speci men Type: BLOOD SPECIMENOrdering Facility: [facility] Address: [address] [place] [address] Result Comment: eAG: (Estimated average glucose) is a calculated value from HgbA1c and is traffic representative of the average blood glucose level in the last 2-3 month period. Performed By: #### 5 5454-3 ####[facility] LABCLIA [id number] [place] [address] [place] HbA1c (Bld) [Mass fraction] 6.8 % High 4.3-5.6 [facility] Comment on above: Order Comment: Speci men Type: BLOOD SPECIMENOrdering Facility: [facility] Address: [address] [place] [address] Result Comment: [place] Diabetes Association guidelines indicate that patients with HgbA1c in the range 5.7-6.4% are at increased risk for development of diabetes, and intervention by lifestyle modification may be beneficial. HgbA1c greater or equal to 6.5% is considered diagnostic of diabetes. Performed By: #### 5 5454-3 ####[facility] LABCLIA [id number] [place] [address] [place] LIPID PANEL, NONFASTINGon Cholesterol [Mass/Vol] 247 mg/dL High <200 [facility] Comment on above: Order Comment: Sunny lynn Type: BLOOD SPECIMENOrdering Facility: [facility] Address: [address] [place] [address] Result Comment: <200 mg/dL, Desirable 200-239 mg/dL, Borderline high>239 mg/dL, High Performed By: #### L IPNF ####[facility] LABCLIA [id number] [place] [address] [place] HDL CHOLESTEROL, NF 39 mg/dL Low >[address] [facility] Comment on above: Order Comment: Sunny men Type: BLOOD SPECIMENOrdering Facility: [facility] Address: [address] [place] [address] Result Comment: 40-5 9 mg/dL, Acceptable>59 mg/dL, High: Negative risk factor for coronary heart disease<40 mg/dL, Low: Positive risk factor for coronary heart disease Performed By: #### L IPNF ####[facility] LABCLIA [id number] [place] [address] [place] LDL CHOLESTEROL, NF 162 mg/dL High <[address] [facility] Comment on above: Order Comment: Sunny men Type: BLOOD SPECIMENOrdering Facility: [facility] Address: [address] [place] [address] Result Comment: <100 mg/dL, Optimal 100-129 mg/dL, Near optimal/above optimal 130-159 mg/dL, Borderline high 160-189 mg/dL, High>189 mg/dL, Very highSecondary prevention optimal LDL Cholesterol levels are recommended to be < 70 mg/dL Performed By: #### L IPNF ####[facility] LABCLIA [id number] [address] [place] LDL/HDL RATIO, NF 4.15 mg/dL High <2.54 [facility] Comment on above: Order Comment: Speci men Type: BLOOD SPECIMENOrdering Facility: [facility] Address: [address] [place] [address] Result Comment: Refe yobani:1. National Cholesterol Education Program ATP III Guideline At-A-Glance Quick Desk Reference: National Heart, Lung, and Blood [place]. National Institutes of Health. 2001: NIH Publication No. 01-3305.2. An International Atherosclerosis Society position paper: global recommendations for the management of dyslipidemia: executive summary, Atherosclerosis. 2014: 232(2):410-413. Performed By: #### L IPNF ####[facility] LABIA [id number] [address] OF HEATHER NON HDL CHOL, NF 208 mg/dL High <130 [facility] Comment on above: Order Comment: Sunny lynn Type: BLOOD SPECIMENOrdering Facility: [facility] Address: [address] [place] [address] Result Comment: <130 mg/dL, Optimal 130-159 mg/dL, Near optimal/above optimal 160-189 mg/dL, Borderline high 190-219 mg/dL, High>219 mg/dL, Very highSecondary prevention optimal non HDL Cholesterol levels are recommended to be <100 mg/dL Performed By: #### L IPNF ####[facility] LABCLIA [id number] [address] OF HEATH[place] T CHOL/HDL RATIO NF 6.33 mg/dL High <5.[address] [facility] Comment on above: Order Comment: Speci men Type: BLOOD SPECIMENOrdering Facility: [facility] Address: [address] [place] [address] Performed By: #### L IPNF ####[facility] LABCLIA [id number] [place] [address] [place] TRIGLYCERIDES, NF 230 mg/dL High <150 [facility] Comment on above: Order Comment: Speci men Type: BLOOD SPECIMENOrdering Facility: [facility] Address: [address] [place] [address] Result Comment: <150 mg/dL, Normal 150-199 mg/dL, Borderline high 200-499 mg/dL, High>499 mg/dL, Very high Performed By: #### L IPNF ####[facility] LABCLIA [id number] [place] [address] [place] VLDL CHOLESTEROL, NF 46 mg/dL High <30 [facility] Comment on above: Order Comment: Speci men Type: BLOOD SPECIMENOrdering Facility: [facility] Address: [address] [place] [address] Performed By: #### L IPNF ####[facility] LABCLIA [id number] [place] [address] [place] US THYROID/PARATHYROIDon US THYROID/PARATHYROID Normal [facility] CNPNon 07-07-2024 CNPN Normal [facility] CNOVon 07-06-2024 CNOV Normal [facility] Cardiology Visit Reporton Cardiology Visit Report [facility] [address] [place], [place] [address] OFFICE VISIT Date of Service: 07/02/24 MR#: [id number] Acct: [id number] Name: PAT SORTO Rep #: [id number] : 1960 Provider: Dr. nAdrea Peace MD Age/Sex: 64/F Location: [facility] Status: Signed HPI HPI History of Present Illness Details: 64-year-old lady with metastatic breast carcinoma diagnosed in 2017 who presents for an evaluation of her cardiac condition as there has been a decline in her global longitudinal strain. She does have a history of hypertension and drug-induced diabetes mellitus and has been on glipizide as well as Afinitor or and exemestane. She has been feeling well she denies any chest pain or shortness of breath or paroxysmal nocturnal dyspnea or pedal edema. She has been compliant with all her medication. She tells me that she had surgery recently for breast implant and after that was noted to have elevated blood pressure. It has remained elevated. She did have an echocardiogram in August 2023 demonstrating ejection fraction of 59% plus and -5. Intake Vital Signs 10/09/23 10:03 05/21/24 11:41 07/02/24 11:07 Height 5 ft 6 in 5 ft 6 in 5 ft 6 in Weight: 170 lb BMI 27.4 BP 157/93 H Blood Pressure Location Rt brachial Position Sitting Respiration 16 Pulse 82 Pulse Source Monitor Intake Visit Reasons: 8 M [employer] Supervisor Required: No Accompanied by: Self Is patient in pain?: No Allergies No Known Allergies Allergy (Verified 07/02/24 11:11) Medications ???Medication ???Instructions ???Recorded ???Confirmed ???Type ascorbic acid (vitamin C) 100 mg 500 mg PO QDAY 03/29/17 07/02/24 H istory tablet vitamin E (dl, acetate) 45 mg (100 400 unit PO QDAY 03/29/17 History unit) capsule aspirin 81 mg chewable tablet 81 mg PO ONCE 04/04/17 07/02/24 Hi story cyanocobalamin (vitamin B-12) 1,000 mcg PO DAILY 04/23/17 History 1,000 mcg capsule ergocalciferol (vitamin D2) 1,250 50,000 unit PO QWEEK 09/03/23 History mcg (50,000 unit) capsule (Vitamin D2) everolimus (antineoplastic) 10 mg 10 mg PO DAILY 09/03/23 07/02/24 History tablet exemestane 25 mg tablet 25 mg PO DAILY 09/03/23 07/02/24 H istory lorazepam 0.5 mg tablet 0.5 mg PO TID PRN anxiety 09/03/23 07/02/24 History pantoprazole 40 mg tablet,delayed 40 mg PO DAILY 09/03/23 07/02/24 History release calcium carbonate 1,000 mg PO DAILY 10/09/23 5 History amlodipine 5 mg tablet 5 mg PO QDAY #90 tabs 07/02/24 Rx hydrochlorothiazide 25 mg tablet 25 mg PO QAM #60 tabs 07/02/24 Rx insulin glargine 100 unit/mL (3 20 unit subcut QAM 07/02/24 History mL) subcutaneous pen (Lantus Solostar U-100 Insulin) losartan 50 mg tablet 100 mg PO DAILY 07/02/24 07/02/24 History metoprolol succinate 25 mg 25 mg PO QDAY 07/02/24 07/02/24 Hi story tablet,extended release 24 hr ursodiol 500 mg tablet (LEENA Forte) 1,250 mg PO QDAY 07/02/2407/02 History Have you fallen in the past year?: No PFSH Medical History History of removal of left breast implant (05/18/24) Acute kidney injury Chemotherapy induced cardiomyopathy Malignant neoplasm of lower-outer quadrant of left breast of female, estrogen receptor positive Type 2 diabetes mellitus with hyperglycemia Primary biliary cirrhosis History of chemotherapy Breast cancer Abnormal mammogram of left breast HTN (hypertension) Surgical History Hx of total mastectomy of left breast S/P breast biopsy S/P total knee replacement History of section Family History Mother Diabetes Heart disease Hypertension CVA (cerebral vascular accident) Father Diabetes Hypertension Social History Smoking Status: Never smoker alcohol intake: current alcohol intake frequency: 0-2 drinks per day substance use type: does not use ROS Const Const: Negative for fatigue, weakness, headache(s), daytime sleepiness or difficulty sleeping ENT ENT: Negative for headache(s), dizziness or Nosebleed/epistaxis Cardio Chest Pain: No Palpitations: Yes Edema: None Resp Respiratory: Positive for SOB with activity (post surgery); Negative for SOB at rest, SOB orthopnea SOB lying down or Cough GI GI: Negative nausea, vomiting or heartburn Neuro Neuro: Negative for dizziness, lightheadedness, near syncope, headache(s) or weakness Endo Endo: Negative for fatigue Cardiology Exam Const Appearance: cooperative, healthy appearing, no acute distress, well developed and we (more content not included)... Normal [facility] GLUCOSE, BLOOD (POC)on 06-30 Glucose [Mass/Vol] 134 mg/dL Abnormal 74 - 99 mg/dL [facility] Comment on above: Location:[facility] [place], [place], [address] The Accu-Chek Inform II glucose meter has not been approved for testing on patients receiving intensive medical intervention or therapy and results from this point of care glucose test should not be used for patient management decisions in these cases. Inaccurate results may also occur from other interfering factors, such as N-acetylcysteine (blood concentrations of greater than 5mg/dL), galactose, extremes of hematocrit (<10 or >65), or high doses of ascorbic acid (vitamin C) greater than 3mg/dL. Consider alternate testing mechanisms (e.g. core lab, blood gas instrument) in the above situations. 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 EXAM CATEGORY: Subsequent treatment strategy. TECHNIQUE: Radiopharmaceutical was administered intravenously followed by PET imaging from the eyes to thighs. Free breathing, low dose CT of the same body region was acquired without IV contrast for attenuation correction and anatomic localization. Unenhanced imaging is limited for the evaluation of some pathology and the acquired CT was not designed to produce diagnostic CT scan quality. Physiologic/non-patholo gic uptake in some body regions could confound or obscure some pathology. * CT Dose-Length Product (DLP): 305 mGy*cm * CT Dose Reduction Employed: Yes * Blood glucose: 134 mg/dL * Injection site: Right Forearm-Antecubital * Injected activity: 11 mCi * Uptake Time: 54 minutes * Radiopharmaceutical: Q50-Lwppvoggsfhgcdmspg (FDG) COMPARISON: 06/30/2024 CORRELATION: No relevant prior imaging available RESULT: REFERENCES: FDG uptake is used as a surrogate marker for glucose metabolism. All reported standardized uptake values represent maximum SUV (SUVmax) per body weight, unless otherwise specified. SUV reference values, as follows: * Blood Pool (Descending Aorta): SUVmax 2.5 * Background Liver: SUVmax 3.3; SUVmean 2.6 Localizer Images: No additional findings. HEAD AND NECK: Head: No radiotracer avid lesion or mass effect in the imaged intracranial compartment. Aerodigestive Tract: No radiotracer avid lesion. Lymph Nodes: No radiotracer avid lymphadenopathy. Neck Soft Tissues: Approximately 1.2 cm new focal uptake projecting at the left thyroid lobe, SUV max 2.1, CT image 62 CHEST: Lungs and Pleura: 0.3 cm right middle lobe nodule on CT image 119 is not significantly changed in size, and below FDG PET/CT resolution. Anterior left upper lung zone airspace opacities likely sequela of prior radiation therapy. No pleural effusion. Lymph Nodes: At least 2 adjacent right axillary lymph nodes, conspicuous 0.8 cm, SUV max 2.[address] image 94, previously 0.5 cm SUV max 0.9. No focal abnormal left axillary or supraclavicular nodes. Cardiovascular: Blood pool activity. No pericardial effusion. Normal heart size. Chest Wall: New heterogeneous left breast/chest wall uptake, SUV max 3.1, compatible with postprocedural changes. ABDOMEN AND PELVIS: Hepatobiliary: No radiotracer avid lesion. Cholelithiasis. Spleen: No radiotracer avid lesion. No splenomegaly. Pancreas: No radiotracer avid lesion. Adrenals: No radiotracer avid nodule. Urinary Tract: 1.0 cm right renal pelvis nonobstructing calculus redemonstrated. Physiologic radiotracer excretion in the renal collecting systems and urinary bladder. No hydronephrosis. GI Tract: No radiotracer avid lesion. No bowel dilation. Colonic diverticulosis. Peritoneum: No radiotracer avid lesion. No ascites. Lymph Nodes: No radiotracer avid lymphadenopathy. Vasculature: Blood pool activity. Vascular calcifications without an abdominal aortic aneurysm. Pelvic Organs: No radiotracer avid lesion. MUSCULOSKELETAL: Bones: No radiotracer avid lesion. No lytic or sclerotic lesion. Soft Tissues: No radiotracer avid lesion. IMPRESSION PRIMARY DISEASE SITE: * Changing pattern of uptake at the left breast/chest wall likely postoperative following the 05/18/2024 MERLYN DISEASE: * No metabolically active lymphadenopathy in the left thorax. * Slightly changing pattern of uptake in the right axillary node measuring up to 0.8 cm which may be reactive or FDG injection related, neoplastic process is not entirely excluded. Recommend follow-up workup, including mammographic correlation, as clinically indicated. METASTATIC DISEASE: * No metabolically active distant metastases. ADDITIONAL FINDINGS: * Approximately 1.2 cm new focal uptake projecting at the left thyroid lobe. Suggest correlation with with thyroid ultrasound, if not recently performed. * Chronic changes, as described. Script Worker: [facility] ST[facility] MEDICAL CENTERMark Anthony Transcribe Date/Time: Jul 01 2024 10:58P Dictated by : LAMIN HARRINGTON MD This examination was interpreted and the report reviewed and electronically signed by: LAMIN HARRINGTON MD on Jul 02 2024 12:27AM EST [id number] Normal [facility] Bacteria Wnd Culton 06-26-19 25 Bacteria identified Cx Nom (Wound) CULTURE, WOUND: No growth GRAM STAIN: No organisms seen No Polymorphonuclear Leukocytes Normal [facility] Comment on above: Performed By: #### 6 462-6 ####[facility] LABCLIA [id number] [place] [address] [place] CNOVon 06-25-2024 CNOV Normal [facility] CNOVon 06-05-2024 CNOV Normal [facility] CNOVon 06-04-2024 CNOV Normal [facility] Basic metabolic 2000 panelon 06-03-2024 Anion gap [Moles/Vol] 11 mmol/L Normal 8-15 [facility] Comment on above: Order Comment: Speci men Type: BLOOD SPECIMENOrdering Facility: [facility] Address: [address] [place] [address] Performed By: #### 2 4321-2 ####[facility] MILLTOWNCLIA [id number] [place] [address] [place] Calcium [Mass/Vol] 10.1 mg/dL Normal 8.5-10.2 [facility] Comment on above: Order Comment: Speci men Type: BLOOD SPECIMENOrdering Facility: [facility] Address: [address] [place] [address] Performed By: #### 2 4321-2 ####[facility] MILLTOWNCLIA [id number] [place] [address] [place] Chloride [Moles/Vol] 104 mmol/L Normal 98-107 [facility] Comment on above: Order Comment: Speci men Type: BLOOD SPECIMENOrdering Facility: [facility] Address: [address] [place] [address] Performed By: #### 2 4321-2 ####[facility] MILLTOWNCLIA [id number] [place] [address] [place] CO2 [Moles/Vol] 27 mmol/L Normal 22-30 [facility] Comment on above: Order Comment: Speci men Type: BLOOD SPECIMENOrdering Facility: [facility] Address: [address] [place] [address] Performed By: #### 2 4321-2 ####[facility] SH[facility] MILLTOWNCLIA [id number] [place] [address] [place] Creatinine [Mass/Vol] 1.15 mg/dL High 0.58-0.96 [facility] Comment on above: Order Comment: Speci men Type: BLOOD SPECIMENOrdering Facility: [facility] Address: [address] [place] [address] Performed By: #### 2 4321-2 ####[facility] MILLTOWNCLIA [id number] [place] [address] [place] Creatinine and Glomerular filtration rate.predicted panel (S/P/Bld) 53 mL/min/1.73m??? Low >=60 [facility] Comment on above: Order Comment: Sunny lynn Type: BLOOD SPECIMENOrdering Facility: [facility] Address: [address] [place] [address] Result Comment: Sherlyn mated Glomerular Filtration Rate (eGFR) is calculated using the 2020 CKD-EPI creatinine equation. This equation utilizes serum creatinine, sex, and age as parameters. The creatinine assay has traceable calibration to isotope dilution-mass spectrometry. Refer to KDIGO guidelines for clinical interpretation. In patients with unstable renal function, e.g. those with acute kidney injury, the eGFR may not accurately reflect actual GFR. Performed By: #### 2 4321-2 ####[facility] [id number] [place] [address] [place] Glucose [Mass/Vol] 103 mg/dL High 74-99 [facility] Comment on above: Order Comment: Sunny lynn Type: BLOOD SPECIMENOrdering Facility: [facility] Address: [address] [place] [address] Result Comment: The [place] Diabetes Association (ADA) provides guidance for cutoff values for fasting glucose and random glucose. The ADA defines fasting as no caloric intake for at least 8 hours. Fasting plasma glucose results between 100 to 125 mg/dL indicate increased risk for diabetes (prediabetes).Fasting plasma glucose results greater than or equal to 126 mg/dL meet the criteria for diagnosis of diabetes. In the absence of unequivocal hyperglycemia, results should be confirmed by repeat testing. In a patient with classic symptoms of hyperglycemia or hyperglycemic crisis, random plasma glucose results greater than or equal to 200 mg/dL meet the criteria for diagnosis of diabetes.Reference: Standards of Medical Care in Diabetes 2016, [place] Diabetes Association. Diabetes Care. 2016.39(Suppl 1). Performed By: #### 2 4321-2 ####[facility] [id number] [place] [address] [place] Potassium [Moles/Vol] 4.0 mmol/L Normal 3.7-5.1 [facility] Comment on above: Order Comment: Speci men Type: BLOOD SPECIMENOrdering Facility: [facility] Address: [address] [place] [address] Performed By: #### 2 4321-2 ####[facility] [id number] [place] [address] [place] Sodium [Moles/Vol] 142 mmol/L Normal 136-144 [facility] Comment on above: Order Comment: Speci men Type: BLOOD SPECIMENOrdering Facility: [facility] Address: [address] [place] [address] Performed By: #### 2 4321-2 ####[facility] [id number] [place] [address] [place] Urea nitrogen [Mass/Vol] 27 mg/dL High 7-21 [facility] Comment on above: Order Comment: Speci men Type: BLOOD SPECIMENOrdering Facility: [facility] Address: [address] [place] [address] Performed By: #### 2 4321-2 ####[facility] [id number] [place] [address] [place] TSH SerPl-aCncon 06-03-2024 TSH Qn 2.770 m[IU]/L Normal 0.270-4.20 0 [facility] Comment on above: Order Comment: Speci men Type: BLOOD SPECIMENOrdering Facility: [facility] Address: [address] [place] [address] Performed By: #### 3 016-3 ####[facility] LABORATORYCLIA [id number] [place] [address] [place] CNOVon 05-29-2024 CNOV Normal [facility] CNOVon 05-27-2024 CNOV Normal [facility] CNCOon 05-26-2024 CNCO Letter Text Normal [facility] CNOVon 05-26-2024 CNOV Normal [facility] CNPNon 05-26-2024 CNPN Normal [facility] CNOVon 05-25-2024 CNOV Normal [facility] 12 Lead EKGon 05-21-2024 12 Lead EKG [facility] [address] [place] [address] 12 Lead EKG 05/21/24 1155 MR#: [id number] Acct: [id number] Name: PAT SORTO Rep #: [id number] : 1960 64 From: Jada Manuel MD Attending Dr: Status: DEP ER Ordering Dr: Rai Sterling DO Date: 05/21/24 Location: ED Sex: F C Admitted: Test Reason : SOB Blood Pressure : */* mmHG Vent. Rate : 126 BPM Atrial Rate : 126 BPM P-R Int : 136 ms QRS Dur : 80 ms QT Int : 312 ms P-R-T Axes : 43 15 72 degrees QTcB Int : 451 ms Sinus tachycardia Possible Left atrial enlargement Borderline ECG Confirmed by EDUARDO NARAYAN, MIKAELA ([id number]), editor in chief SERENITY CARLSON ([id number]) on 05/25/2024 8:06:33 AM Referred By: Confirmed By: MIKAELA MANUEL MD 05/25/24 0806 Date Jada Manuel MD CC: Dr. Jacinta Rivas MD; Dr. Rai Sterling DO Signed Normal [facility] Basic Metabolic Profile (BMP )on 05-21-2024 BUN/CRE 18.3 RATIO Normal 10-20 [facility] Comment on above: Performed By: #### L 100.0100, L300.3900, L300.4310, L500.2500 #### [facility] [address] [place], [address] CA,Total 9.2 mg/dL Normal 8.5-10.1 [facility] Comment on above: Performed By: #### L 100.0100, L300.3900, L300.4310, L500.2500 #### [facility] [address] [place], [address] Chloride [Moles/Vol] 106 mmol/L Normal 98-107 [facility] Comment on above: Performed By: #### L 100.0100, L300.3900, L300.4310, L500.2500 #### [facility] [address] [place], [address] CO2 [Moles/Vol] 23.0 mmol/L Normal 21.0-32.0 [facility] Comment on above: Performed By: #### L 100.0100, L300.3900, L300.4310, L500.2500 #### [facility] [address] [place], [address] Creatinine [Mass/Vol] 1.04 mg/dL High 0.55-1.02 [facility] Comment on above: Result Comment: The validity of the calculated GFR GFRAA in patients over 70 years has not been determined. Clinical correlation is essential. Performed By: #### L 100.0100, L300.3900, L300.4310, L500.2500 #### [facility] [address] [place], [address] ECRCL 58.10 ml/min Normal [facility] Comment on above: Performed By: #### L 100.0100, L300.3900, L300.4310, L500.2500 #### [facility] [address] [place], [address] EST GFR - AA 68 mL/min Normal >60 [facility] Comment on above: Result Comment: Afri can [place]an GFR Calc Performed By: #### L 100.0100, L300.3900, L300.4310, L500.2500 #### [facility] [address] [place], [address] GAP 8 Normal 5-15 [facility] Comment on above: Performed By: #### L 100.0100, L300.3900, L300.4310, L500.2500 #### [facility] [address] [place], [address] GFR/1.73 sq M.predicted among non-blacks MDRD (S/P/Bld) [Vol rate/Area] 57 mL/min/{1.73_m2} Low >60 [facility] Comment on above: Result Comment: Non- GFR Calc Performed By: #### L 100.0100, L300.3900, L300.4310, L500.2500 #### [facility] [address] [place], [address] Glucose [Mass/Vol] 200 mg/dL High 74-106 [facility] Comment on above: Result Comment: Gluc ose result greater than or equal to 200 mg/dL suggests DIABETES MELLITUS per A.D.A. criteria. Performed By: #### L 100.0100, L300.3900, L300.4310, L500.2500 #### [facility] [address] [place], [address] Potassium [Moles/Vol] 3.6 mmol/L Normal 3.5-5.1 [facility] Comment on above: Performed By: #### L 100.0100, L300.3900, L300.4310, L500.2500 #### [facility] [address] [place], [address] Sodium [Moles/Vol] 137 mmol/L Normal 136-145 [facility] Comment on above: Performed By: #### L 100.0100, L300.3900, L300.4310, L500.2500 #### [facility] [address] [place], [address] Urea nitrogen [Mass/Vol] 19 mg/dL High 7-18 [facility] Comment on above: Performed By: #### L 100.0100, L300.3900, L300.4310, L500.2500 #### [facility] [address] [place], [address] CBC W/Diff, Automatedon 02-04 10-2024 Absolute Lymph 1.74 X10 3/uL Normal 0.83-4.51 [facility] Comment on above: Performed By: #### L 100.0100, L300.3900, L300.4310, L500.2500 #### [facility] [address] [place], [address] Absolute Neut 8.2 X10 3/uL High 2.0-7.7 [facility] Comment on above: Performed By: #### L 100.0100, L300.3900, L300.4310, L500.2500 #### [facility] [address] [place], [address] Basophils/100 WBC (Bld) 0.7 % Normal 0-1 [facility] Comment on above: Performed By: #### L 100.0100, L300.3900, L300.4310, L500.2500 #### [facility] [address] [place], [address] Eosinophils/100 WBC (Bld) 0.5 % Normal 0-5 [facility] Comment on above: Performed By: #### L 100.0100, L300.3900, L300.4310, L500.2500 #### [facility] [address] [place], [address] Erythrocyte distribution width (RBC) [Ratio] 13.2 % Normal 11.6-14.6 [facility] Comment on above: Performed By: #### L 100.0100, L300.3900, L300.4310, L500.2500 #### [facility] [address] [place], [address] Hematocrit (Bld) [Volume fraction] 34.0 % Low 37-47 [facility] Comment on above: Performed By: #### L 100.0100, L300.3900, L300.4310, L500.2500 #### [facility] [address] [place], [address] Hemoglobin (Bld) [Mass/Vol] 10.9 g/dL Low 12.0-15.0 [facility] Comment on above: Performed By: #### L 100.0100, L300.3900, L300.4310, L500.2500 #### [facility] [address] [place], [address] IG% 1.300 High 0.0-0.9 [facility] Comment on above: Result Comment: IG% - Immature Granulocytes (promyelocytes, myelocytes and metamyelocytes) > 1% indicates that a LEFT SHIFT is Present. Performed By: #### L 100.0100, L300.3900, L300.4310, L500.2500 #### [facility] [address] [place] [place], [address] Lymphocytes/100 WBC (Bld) 15.6 % Low 19-41 [facility] Comment on above: Performed By: #### L 100.0100, L300.3900, L300.4310, L500.2500 #### [facility] [address] [place], [address] MCH (RBC) [Entitic mass] 27.1 pg Normal 27.0-32.0 [facility] Comment on above: Performed By: #### L 100.0100, L300.3900, L300.4310, L500.2500 #### [facility] [address] [place], [address] MCHC (RBC) [Mass/Vol] 32.1 g/dL Normal 32-36 [facility] Comment on above: Performed By: #### L 100.0100, L300.3900, L300.4310, L500.2500 #### [facility] [address] [place], [address] MCV (RBC) [Entitic vol] 84.6 fL Normal 81-99 [facility] Comment on above: Performed By: #### L 100.0100, L300.3900, L300.4310, L500.2500 #### [facility] [address] [place], [address] Monocytes/100 WBC (Bld) 8.9 % Normal 0-10 [facility] Comment on above: Performed By: #### L 100.0100, L300.3900, L300.4310, L500.2500 #### [facility] [address] [place], [address] Neutrophils/100 WBC (Bld) 73.0 % High 47-70 [facility] Comment on above: Performed By: #### L 100.0100, L300.3900, L300.4310, L500.2500 #### [facility] [address] [place], [address] Nucleated RBC (Bld) [#/Vol] 0 10*3/uL Normal 0-5 [facility] Comment on above: Performed By: #### L 100.0100, L300.3900, L300.4310, L500.2500 #### [facility] [address] [place], [address] Platelet mean volume (Bld) [Entitic vol] 10.2 fL Normal 6.2-12.0 [facility] Comment on above: Performed By: #### L 100.0100, L300.3900, L300.4310, L500.2500 #### [facility] [address] [place], [address] Platelets (Bld) [#/Vol] 298 10*3/uL Normal 150-450 [facility] Comment on above: Performed By: #### L 100.0100, L300.3900, L300.4310, L500.2500 #### [facility] [address] [place], [address] RBC (Bld) [#/Vol] 4.02 10*6/uL Low 4.2-5.4 [facility] Comment on above: Performed By: #### L 100.0100, L300.3900, L300.4310, L500.2500 #### [facility] [address] [place], [address] RDW SD 40.3 fl Normal 35.1-43.9 [facility] Comment on above: Performed By: #### L 100.0100, L300.3900, L300.4310, L500.2500 #### [facility] [address] [place], [address] WBC (Bld) [#/Vol] 11.2 10*3/uL High 4.4-11.0 [facility] Comment on above: Performed By: #### L 100.0100, L300.3900, L300.4310, L500.2500 #### [facility] [address] [place], [address] CTA Chest W/WO Contraston CTA Chest W/WO Contrast [facility] Imaging Services [address] [place] [address] CTA Chest W/WO Contrast MR#: [id number] Acct: [id number] Name: PAT SORTO Rep #: [id number] : 1960 F 64 From: Wil cox MD PCP: Dr. Jacinta Rivas MD Status: REG ER Study: CTA Chest W/WO Contrast Date of Exam: 05/21/24 Exam# [id number] Ordering Dr: Rai Sterling DO PROCEDURE: CTA CHEST W/WO CONTRAST REASON FOR EXAM: Dyspnea. Elevated D-dimer. Recent surgery. Removal of encapsulated breast implant on the left side. TECHNIQUE: CTA imaging of the chest with intravenous contrast. 3D reconstructions. CONTRAST: 100 cc of Isovue 370. COMPARISON: Comparison is made with prior study done earlier in the day. FINDINGS: Hardware: None. Mild subcutaneous emphysema overlying the left anterior chest wall in keeping with recent breast surgery. Lymph nodes: No mediastinal hilar or axillary lymphadenopathy. Heart: Normal heart size. No pericardial effusion. RV/LV Diameter Ratio: N/A Thoracic Aorta: No thoracic aortic aneurysm or dissection. Pulmonary Vessels: No evidence of acute pulmonary emboli through the major subsegmental branches. Most Proximal Level of Embolus (if embolus present): N/A Lungs and Airways: Mild bibasilar atelectasis. Prominence of the septal lines suggestive of mild vascular congestion. Pleura: Small bilateral pleural effusions right slightly greater than left. Upper Abdomen: Visualized portions of the upper abdominal viscera are unremarkable. Bones: Degenerative changes of the thoracic spine. CT/CTA Chest W/WO Contrast IMPRESSION: No evidence of pulmonary embolism. Small bilateral pleural effusions slightly greater on the right side with mild degree of bibasilar atelectasis. Prominence of the septal lines suggestive of mild vascular congestion. One or more dose reduction techniques were used (e.g., Automated exposure control, adjustment of the mA and/or kV according to patient size, use of iterative reconstruction technique). Reading Location: [place] [address] CC: Dr. Jacinta Rivas MD; Dr. Rai Sterling DO Script Worker: Signed Normal [facility] Chest 1 View (Portable)on Chest 1 View (Portable) [facility] Imaging Services [address] [place] [id number] Chest 1 View (Portable) MR#: [id number] Acct: [id number] Name: PAT SORTO Rep #: [id number] : 1960 F 64 From: [facility] PCP: Dr. Jacinta Rivas MD Status: REG ER Study: Chest 1 View (Portable) Date of Exam: 05/21/24 Exam# [id number] Ordering Dr: Rai Sterling DO PROCEDURE: CHEST 1 VIEW (PORTABLE) REASON FOR EXAM: Shortness of breath. TECHNIQUE: AP portable upright chest. COMPARISON: No prior comparison studies are provided. RAD/Chest 1 View (Portable) IMPRESSION: A left chest tube is in place, only a tiny left apical pneumothorax is seen. Questionable very small left pleural effusion. No right pleural effusion is evident. No evidence of significant pulmonary edema. No acute pneumonic process is otherwise noted. Cardiomediastinal silhouette is within the normal range for age and technique. Reading Location: [address] CC: Dr. Jacinta Rivas MD; Dr. Rai Sterling DO Script Worker: Signed Normal [facility] D-Dimer Quantitative (DVT/PE )on 05-21-2024 D-DIMER QUANT 1.50 FEU/ug/m Invalid Interpretation Code 0.27-0.49 [facility] Comment on above: Result Comment: D-Di brii ELEVATED (>0.49): Additional studies and clinical assessments are indicated to conclude diagnosis of: Deep Vein Thrombosis (DVT) or Pulmonary Embolism (PE) [facility] Jess Magallon. RESULTS READ BACK BY SAME. Performed By: #### L 300.1365 #### [facility] [address] [place], [address] Emergency Department Summary on 05-21-2024 Emergency Department Summary [facility] Medical Records Department [address] [place] [address] Emergency Department Summary 05/21/24 MR#: [id number] Acct: [id number] Name: PAT SORTOE Rep #: [id number] : 1960 64 From: Rai Odom PCP: Dr. Jacinta Rivas MD Status:DEP ER Location: ED HPI History of Present Illness Chief Complaint: Hypertension Informant: patient Narrative Narrative: Presents for evaluation of elevated blood pressure today 214/160. She has been noticing palpitations for 3 days mild dyspnea with deep breaths today. Postop day 3 left breast capsule removal outpatient under general anesthesia. No leg swelling or cramping. No history of PE or DVT. Denies cough symptoms. Denies vomiting or diarrhea. She is tolerating oral fluids. Denies headache chest pains or abdominal pain. 3 weeks ago had added blood pressure medicine of amlodipine 2.5 mg to her 50 mg losartan by her PCP due to systolic blood pressure 150s. She did not take her medications today.Breast cancer history currently on oral chemotherapy and hormone therapy. She is followed by Dr. Carrasco. [facility] Medical History Acute kidney injury Chemotherapy induced cardiomyopathy Malignant neoplasm of lower-outer quadrant of left breast of female, estrogen receptor positive Type 2 diabetes mellitus with hyperglycemia Primary biliary cirrhosis History of chemotherapy Breast cancer Abnormal mammogram of left breast HTN (hypertension) Home Medications ???Medication ???Instructions ???Recorded ???Last Taken ???Type ascorbic acid (vitamin C) 100 mg 500 mg PO QDAY 03/29/17 05/20/24 H istory tablet ursodiol 500 mg tablet (LEENA Forte) 1,500 mg PO QDAY 03/29/1705/20 History vitamin E (dl, acetate) 45 mg (100 400 unit PO QDAY 03/29/17 History unit) capsule aspirin 81 mg chewable tablet 81 mg PO ONCE 04/04/17 05/20/24 Hi story cyanocobalamin (vitamin B-12) 1,000 mcg PO DAILY 04/23/17 History 1,000 mcg capsule ergocalciferol (vitamin D2) 1,250 50,000 unit PO QWEEK 09/03/23 Unk nown History mcg (50,000 unit) capsule (Vitamin D2) everolimus (antineoplastic) 10 mg 10 mg PO DAILY 09/03/23 05/20/24 History tablet exemestane 25 mg tablet 25 mg PO DAILY 09/03/23 05/20/24 H istory lorazepam 0.5 mg tablet 0.5 mg PO TID PRN anxiety 09/03/23 Unknown History pantoprazole 40 mg tablet,delayed 40 mg PO DAILY 09/03/23 05/20/24 History release calcium carbonate 1,000 mg PO DAILY 10/09/23 Unknown History glipizide 5 mg tablet, extended 5 mg PO BID 10/09/23 Unknown Histo ry release 24 hr losartan 50 mg tablet 50 mg PO DAILY #90 tabs 10/09/23 0 05/20/24 Rx amlodipine 2.5 mg tablet 2.5 mg PO DAILY 05/21/24 05/20/24 History Allergy/AdvReac Type Severity Reaction Status Date / Time No Known Allergies Allergy Verified 05/21/24 12:02 Family History Mother Diabetes Heart disease Hypertension CVA (cerebral vascular accident) Father Diabetes Hypertension Surgical History Hx of total mastectomy of left breast S/P breast biopsy S/P total knee replacement History of section Social History Smoking Status: Never smoker alcohol intake: current alcohol intake frequency: 0-2 drinks per day substance use type: does not use ROS ROS ED Constitutional Constitutional ED: Denies chills, fever(s) or sweats ENT ENT ED: Denies sore throat Cardiovascular Cardiovascular: Reports chest pain and palpitations; Denies leg edema or racing heartbeat Respiratory/Chest Respiratory/Chest: Reports dyspnea; Denies cough or dyspnea on exertion Gastrointestinal Gastrointestinal: Denies abdominal pain, diarrhea, nausea or vomiting Genitourinary Genitourinary ED: Denies dysuria, hematuria or urinary frequency Musculoskeletal Musculoskeletal: Denies back pain, extremity pain or neck pain Integumentary Denies rash or wounds Neurologic Neurologic: Denies headache(s), paresthesias or weakness EXAM Physical Exam Const Vital Signs: 05/21/24 11:41 05/21/24 11:59 05/21/24 14:09 Temperature 97.6 F L Temperature Source Oral Pulse Rate 124 H 119 H Respiratory Rate 16 Respiratory Effort Normal Respiratory Pattern Normal Blood Pressure 197/128 H 170/111 H Blood Pressure Mean 151 130 Pulse Ox 98 98 Oxygen Delivery Method Room Air 05/21/24 16:00 05/21/24 16:13 Temperature 97.4 F L Temperature Source Pulse Rate 112 H 112 H Respiratory Rate 14 14 Respiratory Effort Respiratory Pattern Blood Pressure 161/104 H 161/104 H Blood Pressure Mean 123 123 Pulse Ox (more content not included)... Normal [facility] Partial Thromboplast Timeon 05-21-2024 aPTT Coag (Bld) [Time] 26.7 s Normal 24.1-36.2 [facility] Comment on above: Performed By: #### L 100.0100, L300.3900, L300.4310, L500.2500 #### [facility] [address] [place], [address] Prothrombin Time w/INRon INR Coag (PPP) [Relative time] 1.0 {INR} Normal [facility] Comment on above: Performed By: #### L 100.0100, L300.3900, L300.4310, L500.2500 #### [facility] [address] [place], [address] PT Coag (PPP) [Time] 13.2 s Normal 11.7-14.9 [facility] Comment on above: Performed By: #### L 100.0100, L300.3900, L300.4310, L500.2500 #### [facility] [address] [place], [address] CNPNon 05-19-2024 CNPN Normal [facility] ANES POSTPROC EVALon 025 ANES POSTPROC EVAL Normal [facility] ANES PRE-OPon 05-18-2024 ANES PRE-OP Normal [facility] BRIEF OP NOTon 05-18-2024 BRIEF OP NOT Normal [facility] GLUCOSE, BLOOD (POC)on 05-18 Glucose [Mass/Vol] 116 mg/dL Abnormal 74 - 99 mg/dL [facility] Comment on above: Location:[facility], [address] [place], [address] The Accu-Chek Inform II glucose meter has not been approved for testing on patients receiving intensive medical intervention or therapy and results from this point of care glucose test should not be used for patient management decisions in these cases. Inaccurate results may also occur from other interfering factors, such as N-acetylcysteine (blood concentrations of greater than 5mg/dL), galactose, extremes of hematocrit (<10 or >65), or high doses of ascorbic acid (vitamin C) greater than 3mg/dL. Consider alternate testing mechanisms (e.g. core lab, blood gas instrument) in the above situations. Interpretation and review of laboratory results Abnormal [facility] Glucose [Mass/Vol] 130 mg/dL Abnormal 74 - 99 mg/dL [facility] Comment on above: Location:[facility], [address] [place], [address] The Accu-Chek Inform II glucose meter has not been approved for testing on patients receiving intensive medical intervention or therapy and results from this point of care glucose test should not be used for patient management decisions in these cases. Inaccurate results may also occur from other interfering factors, such as N-acetylcysteine (blood concentrations of greater than 5mg/dL), galactose, extremes of hematocrit (<10 or >65), or high doses of ascorbic acid (vitamin C) greater than 3mg/dL. Consider alternate testing mechanisms (e.g. core lab, blood gas instrument) in the above situations. Interpretation and review of laboratory results Abnormal [facility] OPERATIVE NOon 05-18-2024 OPERATIVE NO Normal [facility] OPERATIVE NO Normal [facility] Pathology biopsy report Rommel (Tiss)on 05-18-2024 CASE REPORT Normal [facility] Comment on above: Order Comment: Speci men Type: TISSUE SPECIMENOrdering Facility: [facility] Address: [address] [place] [address] Result Comment: Surg ica Pathology Report Case: [id number] Provider: Micki Marcelino MD Collected: 05/18/2024 11:44 AMOrdering Location: Ambulatory Surgery Received: 05/18/2024 12:56 PMPathologist: David Irene MDSpecimens: A) - Skin, Excision, left chest excision of nodule B) - Breast Implant, Left, left breast implant with capsule C) - Skin, Wide Excision, left breast wide excision inframammory fold recurrence Performed By: #### 6 6121-5 ####[facility] LABIA [id number] [address] [place] CLINICAL HISTORY Normal [facility] Comment on above: Order Comment: Speci leah Type: TISSUE SPECIMENOrdering Facility: [facility] Address: [address] [place] [address] Result Comment: Pre- op diagnosis:Malignant neoplasm of lower-outer quadrant of left breast of female, estrogen receptor positive (HCC) [C50.512, Z17.0] Performed By: #### 6 6121-5 ####[facility] [id number] [address] [place] DIAGNOSIS COMMENT Normal [facility] Comment on above: Order Comment: Sunny lynn Type: TISSUE SPECIMENOrdering Facility: [facility] Address: [address] [place] [address] Result Comment: Part 1 - Invasive carcinoma focally involves the blue inked margin within the dermis, spanning < 1 mm. Immunohistochemistry has been performed and the tumor cells are positive for CKAE1/3.Part 3 - Invasive carcinoma multifocally involves the black inked soft tissue margin, spanning at least 1.5 mm. Immunohistochemistry has been performed and the tumor cells are positive for CKAE1/3.Select slides have been reviewed in consultation with Dr. Picekns, of the [facility] breast pathology department, who concurs.Laboratory Developed Test (LDT) Disclaimer:Performance characteristics of immunohistochemical, immunofluorescent and chromogenic in-situ hybridization tests have been determined by the performing laboratory within [facility]???s Subhash Adames Pathology and Laboratory Medicine Department ([facility], [facility], [facility], , [facility], [facility], or [facility]) in a manner consistent with CLIA requirements. One or more of these tests have not been cleared or approved by the FDA. [facility] is regulated under CLIA as qualified to perform high-complexity testing. These tests are used for clinical purposes. They should not be regarded as investigational or for research. Positive and negative controls stain appropriately. Performed By: #### 6 6121-5 ####[facility] LABCLIA [id number] [address] [place] FINAL DIAGNOSIS Normal [facility] Comment on above: Order Comment: Speci men Type: TISSUE SPECIMENOrdering Facility: [facility] Address: [address] [place] [address] Result Comment: 1. L eft chest, skin, excision (A) - Invasive ductal carcinoma, Negro grade 3, involving subcutis, dermis and epidermis (including ulceration), (see comment).2. Left breast implant, excision and removal (B) - Amorphous acellular material.-Breast implant (gross evaluation only).3. Left breast, inframammary fold, excision (C) - Invasive ductal carcinoma, [place] grade 3, spanning greater than 50 mm, involving capsule, subcutis, dermis and epidermis (including ulceration), (see comment).DEBBIE/debbie/05/25/24 at 1407 EST Performed By: #### 6 6121-5 ####[facility] LABCLIA [id number] [address] STATES OF [facility] FINAL PERFORM[facility] LAB Normal [facility] Comment on above: Order Comment: Speci men Type: TISSUE SPECIMENOrdering Facility: [facility] Address: [address] [place] [address] Result Comment: Diag nostic interpretation performed at: [facility], [address] [place] [address] CLIA# [id number] Director: Gonzales Lazaro MD Performed By: #### 6 6121-5 ####[facility] LABCLIA [id number] [place] [address] [place] GROSS DESCRIPTION Normal [facility] Comment on above: Order Comment: Speci men Type: TISSUE SPECIMENOrdering Facility: [facility] Address: [address] [place] [address] Result Comment: A. S kin, ExcisionReceived in formalin, labeled as left chest excision of nodule is an unoriented ellipse of skin (2.3 x 1.3 cm) and underlying, fragmented fibroadipose tissue measuring 2.3 x 1.3 x 1.0 cm. The line of resection is inked blue. On the skin surface is a pale pink-red ulcerative flat lesion measuring 1.3 x 0.7 x 0.1 cm. This lesion is within 0.3 cm of the nearest skin edge. Sectioning reveals a white-hauser solid granular lesion, measuring up to 1.6 x 1.2 x 0.5 cm and grossly involves and extends to the lateral borders and possibly the subcutaneous tissue. It shows a 0.3 cm depth of invasion. The lesion is within 0.2 cm of the nearest deep margin. The specimen is totally submitted as follows:A1 tipsA2-A3 body of specimen, sequentially submitted from one end to the other May 18, 2024 5:08 PMGross examination performed at [facility], [address] [place], [place] [address]B. Breast Implant, LeftReceived in formalin, labeled as left breast implant with capsule is an intact, smooth lined, silicone-filled breast implant that measures 13.0 x 13.0 x 2.0 cm and weighs 232.3 g. No defects are noted. Inscribed on the surface is STYLE SCL LOT [id number] ALLERGAN 230 CC. Also present in the specimen container are multiple segments of zic-hhnph-udzc granular, rubbery membranous tissue fragments that aggregate to 0.8 0.5 x 6.0 x 2.1 cm. No calcifications are noted. No nodules are present. The implant is for gross examination and is reviewed with Dr. Bullard. [employer] sections of the tissue is submitted in cassettes B1-B2. May 19, 2024 2:11 PMGross examination performed at [facility], [address] [place], [place] [address]C. Skin, Wide ExcisionReceived in formalin labeled as left breast wide excision inframammary fold recurrence is an oriented elliptical shaped segment of skin with underlying breast capsule measuring 7.0 (medial to lateral) x 1.5 (superior to inferior) x 0.6 cm (depth). The tightly adhered breast capsule shows surgical incisions and measures 10.5 x 6.5 x 3.0 cm. The skin has been oriented, per the requisition, with a short stitch at the superior margin and a long stitch at the lateral tip. The margins are inked as follows: Superior margin inked blue, inferior margin inked green, lateral tip inked red, medial tip inked orange and underlying capsule inked black. Situated on the skin surface is a 0.5 x 0.3 cm hypopigmented nodular area which extends within 0.7 cm from the inferior margin, 0.5 cm from the superior margin, 2.5 cm from the medial tip, and 3.7 cm from the lateral tip. Upon sectioning, the subcutaneous tissue along the superior aspect of the skin appears thickened, white, firm with possible involvement measuring 3.0 x 1.0 x 1.5 cm. This area abuts the superior margin. The capsule appears grossly unremarkable.The inner surface of the capsule contains laminated hemorrhagic material. A lesion is not identified. Also received in the same container is an unoriented irregular shaped segment of skin with underlying subcutaneous tissue measuring 3.5 x 3.0 x 1.5 cm. The skin surface appears grossly unremarkable. Sectioning reveals unremarkable cut surfaces. Photographs are taken prior to sectioning.[employer] sections are submitted as follows:C1-lateral tip, shavedC2-medial tip, shavedC3-skin lesion with superior, inferior, and underlying capsuleC4-C14 remainder of skin submitted in consecutive sections from medial to lateral, with underlying. (C5-C9 includes thickened subcutaneous tissue with possible involvement by neoplasm)P00-wgguom capsule duhjY55-wvskocs capsule bwiaX37-bicsbzjua capsule wallThe specimen was removed from the patient at 12:11 PM on 05/18/2024 and placed in formalin at 12:20 PM.Gross examination performed at [facility], [address] [place] [id number] May 19, 2024 9:12 AM Performed By: #### 6 6121-5 ####[facility] LABCLIA [id number] [address] [place] CNTHERAPYon 05-13-2024 CNTHERAPY Normal [facility] CNOVon 05-12-2024 CNOV Normal [facility] CNNURSEon 05-11-2024 CNNURSE Normal [facility] CNOVon 05-07-2024 CNOV Normal [facility] STREP A MOLECULAR (POC)on Procedural Control Valid [facility] Strep A (POCT) Negative Negative [facility] CNTHERAPYon 05-06-2024 CNTHERAPY Normal [facility] CBC W Auto Differential pane l (Bld)on 05-04-2024 Basophils (Bld) [#/Vol] 0.05 10*3/uL Normal <0.11 [facility] Comment on above: Order Comment: Speci men Type: BLOOD SPECIMENOrdering Facility: [facility] Address: [address] [place] [address] Performed By: #### 5 7021-8 ####[facility] [id number] [place] [address] [place] Basophils/100 WBC (Bld) 0.7 % Normal C [facility] Comment on above: Order Comment: Speci men Type: BLOOD SPECIMENOrdering Facility: [facility] Address: [address] [place] [address] Performed By: #### 5 7021-8 ####[facility] [id number] [place] [address] [place] Differential cell count method Nom (Bld) Auto Normal [facility] Comment on above: Order Comment: Speci men Type: BLOOD SPECIMENOrdering Facility: [facility] Address: [address] [place] [address] Performed By: #### 5 7021-8 ####[facility] [id number] [place] [address] [place] Eosinophils (Bld) [#/Vol] 0.09 10*3/uL Normal <0.46 [facility] Comment on above: Order Comment: Speci men Type: BLOOD SPECIMENOrdering Facility: [facility] Address: [address] [place] [address] Performed By: #### 5 7021-8 ####[facility] SENGWNCLIA [id number] [place] [address] [place] Eosinophils/100 WBC (Bld) 1.3 % Normal [facility] Comment on above: Order Comment: Speci men Type: BLOOD SPECIMENOrdering Facility: [facility] Address: [address] [place] [address] Performed By: #### 5 7021-8 ####[facility] MAURYWCARLOSLIA [id number] [place] [address] [place] Erythrocyte distribution width (RBC) [Ratio] 12.8 % Normal 11.5-15.0 [facility] Comment on above: Order Comment: Speci men Type: BLOOD SPECIMENOrdering Facility: [facility] Address: [address] [place] [address] Performed By: #### 5 7021-8 ####[facility] [id number] [place] [address] [place] Hematocrit (Bld) [Volume fraction] 37.3 % Normal 36.0-46.0 [facility] Comment on above: Order Comment: Speci men Type: BLOOD SPECIMENOrdering Facility: [facility] Address: [address] [place] [address] Performed By: #### 5 7021-8 ####[facility] MAURYLEJUNIORNCLIA [id number] [place] [address] [place] Hemoglobin (Bld) [Mass/Vol] 12.3 g/dL Normal 11.5-15.5 [facility] Comment on above: Order Comment: Speci men Type: BLOOD SPECIMENOrdering Facility: [facility] Address: [address] [place] [address] Performed By: #### 5 7021-8 ####[facility] NORTHMNLIA [id number] [place] [address] [place] Immature granulocytes (Bld) [#/Vol] 0.03 10*3/uL Normal <0.10 [facility] Comment on above: Order Comment: Speci men Type: BLOOD SPECIMENOrdering Facility: [facility] Address: [address] [place] [address] Performed By: #### 5 7021-8 ####[facility] [id number] [place] [address] [place] Immature granulocytes/100 WBC (Bld) 0.4 % Normal [facility] Comment on above: Order Comment: Speci men Type: BLOOD SPECIMENOrdering Facility: [facility] Address: [address] [place] [address] Performed By: #### 5 7021-8 ####[facility] [id number] [place] [address] [place] Lymphocytes (Bld) [#/Vol] 1.94 10*3/uL Normal 1.00-4.00 [facility] Comment on above: Order Comment: Speci men Type: BLOOD SPECIMENOrdering Facility: [facility] Address: [address] [place] [address] Performed By: #### 5 7021-8 ####[facility] [id number] [place] [address] [place] Lymphocytes/100 WBC (Bld) 29.0 % Normal [facility] Comment on above: Order Comment: Speci men Type: BLOOD SPECIMENOrdering Facility: [facility] Address: [address] [place] [address] Performed By: #### 5 7021-8 ####[facility] [id number] [place] [address] [place] MCH (RBC) [Entitic mass] 27.2 pg Normal 26.0-34.0 [facility] Comment on above: Order Comment: Speci men Type: BLOOD SPECIMENOrdering Facility: [facility] Address: [address] [place] [address] Performed By: #### 5 7021-8 ####[facility] [id number] [place] [address] [place] MCHC (RBC) [Mass/Vol] 33.0 g/dL Normal 30.5-36.0 [facility] Comment on above: Order Comment: Speci men Type: BLOOD SPECIMENOrdering Facility: [facility] Address: [address] [place], [place] [address] Performed By: #### 5 7021-8 ####[facility] [id number] [place] [address] [place] MCV (RBC) [Entitic vol] 82.3 fL Normal 80.0-100.0 [facility] Comment on above: Order Comment: Speci men Type: BLOOD SPECIMENOrdering Facility: [facility] Address: [address] [place] [address] Performed By: #### 5 7021-8 ####[facility] [id number] [place] [address] [place] Monocytes (Bld) [#/Vol] 0.49 10*3/uL Normal <0.87 [facility] Comment on above: Order Comment: Speci men Type: BLOOD SPECIMENOrdering Facility: [facility] Address: [address] [place] [address] Performed By: #### 5 7021-8 ####[facility] [id number] [place] [address] [place] Monocytes/100 WBC (Bld) 7.3 % Normal [facility] Comment on above: Order Comment: Speci men Type: BLOOD SPECIMENOrdering Facility: [facility] Address: [address] [place] [address] Performed By: #### 5 7021-8 ####[facility] MILLTOWNCLIA [id number] [place] [address] [place] Neutrophils (Bld) [#/Vol] 4.08 10*3/uL Normal 1.45-7.50 [facility] Comment on above: Order Comment: Speci men Type: BLOOD SPECIMENOrdering Facility: [facility] Address: [address] [place] [address] Performed By: #### 5 7021-8 ####[facility] MILLWNCLIA [id number] [place] [address] [place] Neutrophils/100 WBC (Bld) 61.3 % Normal [facility] Comment on above: Order Comment: Speci men Type: BLOOD SPECIMENOrdering Facility: [facility] Address: [address] [place] [address] Performed By: #### 5 7021-8 ####[facility]ITALWNCLIA [id number] [place] [address] [place] Nucleated RBC (Bld) [#/Vol] 10*3/uL Normal <0.01 [facility] Comment on above: Order Comment: Speci men Type: BLOOD SPECIMENOrdering Facility: [facility] Address: [address] [place] [address] Performed By: #### 5 7021-8 ####[facility] MILLTOWNCLIA [id number] [place] [address] [place] Nucleated RBC/100 WBC (Bld) [Ratio] 0.0 /100 WBC Normal [facility] Comment on above: Order Comment: Speci men Type: BLOOD SPECIMENOrdering Facility: [facility] Address: [address] [place] [address] Performed By: #### 5 7021-8 ####[facility] MILLWNCLIA [id number] [place] [address] [place] Platelet mean volume (Bld) [Entitic vol] 9.7 fL Normal 9.0-12.7 [facility] Comment on above: Order Comment: Speci men Type: BLOOD SPECIMENOrdering Facility: [facility] Address: [address] [place] [address] Performed By: #### 5 7021-8 ####[facility] BORISA [id number] [place] [address] [place] Platelets (Bld) [#/Vol] 259 10*3/uL Normal 150-400 [facility] Comment on above: Order Comment: Speci men Type: BLOOD SPECIMENOrdering Facility: [facility] Address: [address] [place] [address] Performed By: #### 5 7021-8 ####[facility] NORTHCARLOSASHAA [id number] [place] [address] [place] RBC (Bld) [#/Vol] 4.53 10*6/uL Normal 3.90-5.[address] [facility] Comment on above: Order Comment: Speci men Type: BLOOD SPECIMENOrdering Facility: [facility] Address: [address] [place] [address] Performed By: #### 5 7021-8 ####[facility] MAURYLEJUNIORCARLOSLIA [id number] [place] [address] [place] WBC (Bld) [#/Vol] 6.68 10*3/uL Normal 3.70-11.[address] [facility] Comment on above: Order Comment: Speci men Type: BLOOD SPECIMENOrdering Facility: [facility] Address: [address] [place] [address] Performed By: #### 5 7021-8 ####[facility] NORTHNCLIA [id number] [place] [address] [place] CNPNon 05-04-2024 CNPN Normal [facility] HISTORY PHYSICALon HISTORY PHYSICAL Normal [facility] CNOVon 04-28-2024 CNOV Normal [facility] CNPNon 04-28-2024 CNPN Normal [facility] INFLUENZA A&B MOLECULAR (POC )on 04-28-2024 Flu A (POCT) Negative Negative [facility] Flu B (POCT) Negative Negative [facility] Procedural Control Valid [facility] Location:[facility], [address] [place] [address], [place], [address] [facility] POINT OF CARE [facility] XR CHEST 2V FRONTAL/LATon XR CHEST 2V FRONTAL/LAT Normal C [facility] XR Chest PA and Lateralon IMPRESSION: No acute radiographic abnormality. Script Worker: [email or web address] Transcribe Date/Time: Apr 28 2024 3:53P Dictated by : FRACISCO BELLO MD This examination was interpreted and the report reviewed and electronically signed by: FRACISCO BELLO MD on Apr 28 2024 4:01PM [facility] DIVISION OF RADIOLOGY * * *Final Report* * * DATE OF EXAM: Apr 28 2024 3:50PM WOX 5291 - XR CHEST 2V FRONTAL/LAT / PROCEDURE REASON: Acute cough * * * * Physician Interpretation * * * * EXAMINATION: CHEST RADIOGRAPH (2 VIEW FRONTAL & LATERAL) CLINICAL HISTORY: Acute cough MQ: XC2_6 EXAM DATE/TIME: 04/28/2024 3:50 PM COMPARISON: Chest x-ray dated 02/13/2021 RESULT: Lines, tubes, and devices: None. Lungs and pleura: No consolidation. No lung mass. No pleural effusion. No pneumothorax. Cardiomediastinal silhouette: Normal cardiomediastinal silhouette. Bones and soft tissues: Degenerative changes are present within the thoracic spine. DIVISION OF RADIOLOGY Provider, [facility] Anitha Reyes - 04/28/2024 * * *Final Report* * * DATE OF EXAM: Apr 28 2024 3:50PM WOX 5291 - XR CHEST 2V FRONTAL/LAT / PROCEDURE REASON: Acute cough * * * * Physician Interpretation * * * * EXAMINATION: CHEST RADIOGRAPH (2 VIEW FRONTAL & LATERAL) CLINICAL HISTORY: Acute cough MQ: XC2_6 EXAM DATE/TIME: 04/28/2024 3:50 PM COMPARISON: Chest x-ray dated 02/13/2021 RESULT: Lines, tubes, and devices: None. Lungs and pleura: No consolidation. No lung mass. No pleural effusion. No pneumothorax. Cardiomediastinal silhouette: Normal cardiomediastinal silhouette. Bones and soft tissues: Degenerative changes are present within the thoracic spine. IMPRESSION IMPRESSION: No acute radiographic abnormality. Script Worker: [email or web address] Transcribe Date/Time: Apr 28 2024 3:53P Dictated by : FRACISCO BELLO MD This examination was interpreted and the report reviewed and electronically signed by: FRACISCO BELLO MD on Apr 28 2024 4:01PM [facility] Radiology Study observation (narrative) [facility] XR Chest PA and LateralOrder ed By: Ccf Provider on 04-28-2024 [facility] [id number] 04-24-2024 [id number] Normal [facility] CNTHERAPYon 04-24-2024 CNTHERAPY Normal [facility] THERAPY NTon 04-24-2024 THERAPY NT Normal [facility] CNOVon 04-15-2024 CNOV Normal [facility] GLOOKO ON DEMANDon Ordered by an unspecified provider. [facility] CNPNon 04-13-2024 CNPN Normal [facility] US DVT UPPER LTon 04-13-2024 US DVT UPPER LT * * *Final Report* * * DATE OF EXAM: Apr 13 2024 11:02AM LDU 1003 - US DVT UPPER LT / PROCEDURE REASON: multiple diagnoses * * * * Physician Interpretation * * * * EXAMINATION: LEFT UPPER EXTREMITY DEEP VENOUS ULTRASOUND WITH DOPPLER IMAGING CLINICAL HISTORY: Left arm swelling TECHNIQUE: Grayscale with compression maneuvers where accessible, color and spectral Doppler of the left internal jugular, subclavian, and axillary veins was performed. Grayscale with compression maneuvers of the left brachial, basilic and cephalic veins was also performed. The contralateral internal jugular and distal subclavian veins were imaged for comparison. Images were obtained and stored in a permanent archive. MQ: USUEL_1 COMPARISON: None RESULT: LEFT UPPER EXTREMITY DEEP VEINS Internal Jugular vein: Normal compression, normal spontaneous flow. Subclavian vein: Normal, spontaneous flow. Axillary vein: Normal compression, normal spontaneous flow. Brachial vein: Normal compression SUPERFICIAL VEINS Basilic vein: Normal compression. Cephalic vein: Normal compression. RIGHT UPPER EXTREMITY (FOR COMPARISON) DEEP VEINS Internal Jugular and Distal Subclavian veins: Normal compression, normal spontaneous flow. IMPRESSION: Negative study for DVT in the left upper extremity. Negative study for superficial thrombophlebitis in the imaged segments of the left upper extremity. Script Worker: [email or web address] Transcribe Date/Time: Apr 13 2024 11:33A Dictated by : ARIELLA ALEX MD This examination was interpreted and the report reviewed and electronically signed by: ARIELLA ALEX MD on Apr 13 2024 11:33AM EST [id number] Normal [facility] US Upper extremity vein - le fton 04-13-2024 IMPRESSION: Negative study for DVT in the left upper extremity. Negative study for superficial thrombophlebitis in the imaged segments of the left upper extremity. Script Worker: [email or web address] Transcribe Date/Time: Apr 13 2024 11:33A Dictated by : ARIELLA ALEX MD This examination was interpreted and the report reviewed and electronically signed by: ARIELLA ALEX MD on Apr 13 2024 11:33AM EST [email or web address] * * *Final Report* * * DATE OF EXAM: Apr 13 2024 11:02AM LDU 1003 - US DVT UPPER LT / PROCEDURE REASON: multiple diagnoses * * * * Physician Interpretation * * * * EXAMINATION: LEFT UPPER EXTREMITY DEEP VENOUS ULTRASOUND WITH DOPPLER IMAGING CLINICAL HISTORY: Left arm swelling TECHNIQUE: Grayscale with compression maneuvers where accessible, color and spectral Doppler of the left internal jugular, subclavian, and axillary veins was performed. Grayscale with compression maneuvers of the left brachial, basilic and cephalic veins was also performed. The contralateral internal jugular and distal subclavian veins were imaged for comparison. Images were obtained and stored in a permanent archive. MQ: USUEL_1 COMPARISON: None RESULT: LEFT UPPER EXTREMITY DEEP VEINS Internal Jugular vein: Normal compression, normal spontaneous flow. Subclavian vein: Normal, spontaneous flow. Axillary vein: Normal compression, normal spontaneous flow. Brachial vein: Normal compression SUPERFICIAL VEINS Basilic vein: Normal compression. Cephalic vein: Normal compression. RIGHT UPPER EXTREMITY (FOR COMPARISON) DEEP VEINS Internal Jugular and Distal Subclavian veins: Normal compression, normal spontaneous flow. [facility] Provider, Krista Reyes - 04/13/2024 * * *Final Report* * * DATE OF EXAM: Apr 13 2024 11:02AM LDU 1003 - US DVT UPPER LT / PROCEDURE REASON: multiple diagnoses * * * * Physician Interpretation * * * * EXAMINATION: LEFT UPPER EXTREMITY DEEP VENOUS ULTRASOUND WITH DOPPLER IMAGING CLINICAL HISTORY: Left arm swelling TECHNIQUE: Grayscale with compression maneuvers where accessible, color and spectral Doppler of the left internal jugular, subclavian, and axillary veins was performed. Grayscale with compression maneuvers of the left brachial, basilic and cephalic veins was also performed. The contralateral internal jugular and distal subclavian veins were imaged for comparison. Images were obtained and stored in a permanent archive. MQ: USUEL_1 COMPARISON: None RESULT: LEFT UPPER EXTREMITY DEEP VEINS Internal Jugular vein: Normal compression, normal spontaneous flow. Subclavian vein: Normal, spontaneous flow. Axillary vein: Normal compression, normal spontaneous flow. Brachial vein: Normal compression SUPERFICIAL VEINS Basilic vein: Normal compression. Cephalic vein: Normal compression. RIGHT UPPER EXTREMITY (FOR COMPARISON) DEEP VEINS Internal Jugular and Distal Subclavian veins: Normal compression, normal spontaneous flow. IMPRESSION IMPRESSION: Negative study for DVT in the left upper extremity. Negative study for superficial thrombophlebitis in the imaged segments of the left upper extremity. Script Worker: [email or web address] Transcribe Date/Time: Apr 13 2024 11:33A Dictated by : ARIELLA ALEX MD This examination was interpreted and the report reviewed and electronically signed by: ARIELLA ALEX MD on Apr 13 2024 11:33AM EST [facility] Radiology Study observation (narrative) [facility] US Upper extremity vein - le ftOrdered By: Ccf Provider on 04-13-2024 [facility] CNOVSPon 04-10-2024 CNOVSP Normal [facility] CNPNon 04-10-2024 CNPN Normal [facility] metabolic 2000 panelon 04-10-2024 Albumin [Mass/Vol] 3.9 g/dL Normal 3.9-4.9 [facility] Comment on above: Order Comment: Speci men Type: BLOOD SPECIMENOrdering Facility: [facility] Address: [address] [place] [address] Performed By: #### 2 4323-8 ####[facility] SHARADCENTRAL VERMONT MEDICAL CENTERWNCLIA [id number] [place] [address] [place] ALP [Catalytic activity/Vol] 65 U/L Normal 34-123 [facility] Comment on above: Order Comment: Speci men Type: BLOOD SPECIMENOrdering Facility: [facility] Address: [address] [place] [address] Performed By: #### 2 4323-8 ####[facility] HOSPITALLIA [id number] [place] [address] [place] ALT [Catalytic activity/Vol] 12 U/L Normal 7-38 [facility] Comment on above: Order Comment: Speci men Type: BLOOD SPECIMENOrdering Facility: [facility] Address: [address] [place] [address] Performed By: #### 2 4323-8 ####[facility] NORTHNCLIA [id number] [place] [address] [place] Anion gap [Moles/Vol] 9 mmol/L Normal 8-15 [facility] Comment on above: Order Comment: Speci men Type: BLOOD SPECIMENOrdering Facility: [facility] Address: [address] [place] [address] Performed By: #### 2 4323-8 ####[facility] NORTHNCLIA [id number] [place] [address] [place] AST [Catalytic activity/Vol] 18 U/L Normal 13-35 [facility] Comment on above: Order Comment: Speci men Type: BLOOD SPECIMENOrdering Facility: [facility] Address: [address] [place] [address] Performed By: #### 2 4323-8 ####[facility] MILLTOWNCLIA [id number] [place] [address] [place] Bilirubin [Mass/Vol] 0.3 mg/dL Normal 0.2-1.3 [facility] Comment on above: Order Comment: Speci men Type: BLOOD SPECIMENOrdering Facility: [facility] Address: [address] [place] [address] Performed By: #### 2 4323-8 ####[facility] MILLTOWNCLIA [id number] [place] [address] [place] Calcium [Mass/Vol] 9.3 mg/dL Normal 8.5-10.2 [facility] Comment on above: Order Comment: Speci men Type: BLOOD SPECIMENOrdering Facility: [facility] Address: [address] [place] [address] Performed By: #### 2 4323-8 ####[facility] MILLTOWNCLIA [id number] [place] [address] [place] Chloride [Moles/Vol] 102 mmol/L Normal 98-107 [facility] Comment on above: Order Comment: Speci men Type: BLOOD SPECIMENOrdering Facility: [facility] Address: [address] [place] [address] Performed By: #### 2 4323-8 ####[facility] MILLTOWNCLIA [id number] [place] [address] [place] CO2 [Moles/Vol] 27 mmol/L Normal 22-30 [facility] Comment on above: Order Comment: Speci men Type: BLOOD SPECIMENOrdering Facility: [facility] Address: [address] [place] [address] Performed By: #### 2 4323-8 ####[facility] MILLTOWNCLIA [id number] [place] [address] [place] Creatinine [Mass/Vol] 0.91 mg/dL Normal 0.58-0.96 [facility] Comment on above: Order Comment: Sunny lynn Type: BLOOD SPECIMENOrdering Facility: [facility] Address: [address] [place] [address] Performed By: #### 2 4323-8 ####[facility] [id number] [place] [address] [place] Creatinine and Glomerular filtration rate.predicted panel (S/P/Bld) 70 mL/min/1.73m??? Normal >=60 [facility] Comment on above: Order Comment: Sunny lynn Type: BLOOD SPECIMENOrdering Facility: [facility] Address: [address] [place] [address] Result Comment: Sherlyn mated Glomerular Filtration Rate (eGFR) is calculated using the 2020 CKD-EPI creatinine equation. This equation utilizes serum creatinine, sex, and age as parameters. The creatinine assay has traceable calibration to isotope dilution-mass spectrometry. Refer to KDIGO guidelines for clinical interpretation. In patients with unstable renal function, e.g. those with acute kidney injury, the eGFR may not accurately reflect actual GFR. Performed By: #### 2 4323-8 ####[facility] [id number] [place] [address] [place] Glucose [Mass/Vol] 183 mg/dL High 74-99 [facility] Comment on above: Order Comment: Sunny lynn Type: BLOOD SPECIMENOrdering Facility: [facility] Address: [address] [place] [address] Result Comment: The [place] Diabetes Association (ADA) provides guidance for cutoff values for fasting glucose and random glucose. The ADA defines fasting as no caloric intake for at least 8 hours. Fasting plasma glucose results between 100 to 125 mg/dL indicate increased risk for diabetes (prediabetes).Fasting plasma glucose results greater than or equal to 126 mg/dL meet the criteria for diagnosis of diabetes. In the absence of unequivocal hyperglycemia, results should be confirmed by repeat testing. In a patient with classic symptoms of hyperglycemia or hyperglycemic crisis, random plasma glucose results greater than or equal to 200 mg/dL meet the criteria for diagnosis of diabetes.Reference: Standards of Medical Care in Diabetes 2016, [place] [employer]. Diabetes Care. 2016.39(Suppl 1). Performed By: #### 2 4323-8 ####[facility] [id number] [place] [address] [place] Potassium [Moles/Vol] 3.5 mmol/L Low 3.7-5.1 [facility] Comment on above: Order Comment: Speci men Type: BLOOD SPECIMENOrdering Facility: [facility] Address: [address] [place] [address] Performed By: #### 2 4323-8 ####[facility] [id number] [place] [address] [place] Protein [Mass/Vol] 7.1 g/dL Normal 6.3-8.0 [facility] Comment on above: Order Comment: Speci men Type: BLOOD SPECIMENOrdering Facility: [facility] Address: [address] [place], [place] [address] Performed By: #### 2 4323-8 ####[facility] [id number] [place] [address] [place] Sodium [Moles/Vol] 138 mmol/L Normal 136-144 [facility] Comment on above: Order Comment: Speci men Type: BLOOD SPECIMENOrdering Facility: [facility] Address: [address] [place] [address] Performed By: #### 2 4323-8 ####[facility] [id number] [place] [address] [place] Urea nitrogen [Mass/Vol] 25 mg/dL High 7-21 [facility] Comment on above: Order Comment: Speci men Type: BLOOD SPECIMENOrdering Facility: [facility] Address: [address] [place] [address] [place] [address] Performed By: #### 2 4323-8 ####[facility] SHARAD ELLSWORTHNIA [id number] [place] [address] [place] GLUCOSE, BLOOD (POC)on 04-06 Glucose [Mass/Vol] 143 mg/dL Abnormal 74 - 99 mg/dL [facility] Comment on above: Location:[facility], [address] [place] [address], [address] The Accu-Chek Inform II glucose meter has not been approved for testing on patients receiving intensive medical intervention or therapy and results from this point of care glucose test should not be used for patient management decisions in these cases. Inaccurate results may also occur from other interfering factors, such as N-acetylcysteine (blood concentrations of greater than 5mg/dL), galactose, extremes of hematocrit (<10 or >65), or high doses of ascorbic acid (vitamin C) greater than 3mg/dL. Consider alternate testing mechanisms (e.g. core lab, blood gas instrument) in the above situations. Interpretation and review of laboratory results Abnormal [facility] NM PET/CT SKULL-THIGH SUBQon 04-06-2024 NM PET/CT SKULL-THIGH SUBQ * * *Final Report* * * DATE OF EXAM: Apr 06 2024 10:09AM MDP 0063 - NM PET/CT SKULL-THIGH SUBQ / PROCEDURE REASON: multiple diagnoses * * * * Physician Interpretation * * * * EXAMINATION: BODY FDG PET-CT CLINICAL HISTORY: Malignant neoplasm of overlapping sites of left breast in female, estrogen receptor positive (HCC). Left breast lower outer quadrant carcinoma. EXAM CATEGORY: Subsequent treatment strategy. TECHNIQUE: Radiopharmaceutical was administered intravenously followed by PET imaging from the eyes to thighs. Free breathing, low dose CT of the same body region was acquired without IV contrast for attenuation correction and anatomic localization. Unenhanced imaging is limited for the evaluation of some pathology and the acquired CT was not designed to produce diagnostic CT scan quality. Physiologic/non-patholo gic uptake in some body regions could confound or obscure some pathology. * CT Dose-Length Product (DLP): 350 mGy*cm * CT Dose Reduction Employed: Yes * Blood glucose: 143 mg/dL * Injection site: Right Forearm-Antecubital * Injected activity: 9.5 mCi * Uptake Time: 60 minutes * Radiopharmaceutical: G34-Hovfrtnzsnhbshjdmv (FDG) COMPARISON: FDG PET/CT 12/30/2023 CORRELATION: MRI breast 02/18/2024 RESULT: REFERENCES: FDG uptake is used as a surrogate marker for glucose metabolism. All reported standardized uptake values represent maximum SUV (SUVmax) per body weight, unless otherwise specified. SUV reference values, as follows: * Blood Pool (Descending Aorta): SUVmax 2.5 * Background Liver: SUVmax 2.9; SUVmean 2.2 Localizer Images: No additional findings. HEAD AND NECK: Head: No radiotracer avid lesion or mass effect in the imaged intracranial compartment. Aerodigestive Tract: No radiotracer avid lesion. Lymph Nodes: No radiotracer avid lymphadenopathy. Neck Soft Tissues: No radiotracer avid thyroid nodule. CHEST: Lungs and Pleura: No radiotracer avid mass, nodule, or consolidation. Redemonstrated non-FDG avid scarring in the left apex from prior radiation. No pleural effusion. Lymph Nodes: Mild activity in the right axillary mer[place] basin (3:88, 93, 100; max SUV 3.2), previous SUV max 1.8. Tracer injection was in the right ACF. No new hypermetabolic intrathoracic lymph nodes. Mediastinum: No radiotracer avid mass. Cardiovascular: Blood pool activity. No pericardial effusion. Normal heart size. Chest Wall: Postsurgical changes from left mastectomy with implant reconstruction. Redemonstrated subcutaneous tissue stranding surrounding the implant and adjacent musculature posterior with similar low level FDG avidity (3:109; max SUV 2.4), previously max SUV 2.5. ABDOMEN AND PELVIS: Hepatobiliary: No radiotracer avid lesion. No measurable mass. Cholelithiasis. Spleen: No radiotracer avid lesion. No splenomegaly. Pancreas: No radiotracer avid lesion. Adrenals: No radiotracer avid nodule. Urinary Tract: Physiologic radiotracer excretion in the renal collecting systems and urinary bladder. Large right renal staghorn calculus with mild right hydronephrosis, stable. GI Tract: No radiotracer avid lesion. No bowel dilation. Colonic diverticulosis. Peritoneum: No radiotracer avid lesion. No ascites. Lymph Nodes: No radiotracer avid lymphadenopathy. Vasculature: Blood pool activity. Pelvic Organs: No radiotracer avid lesion. MUSCULOSKELETAL: Bones: No radiotracer avid lesion. No lytic or sclerotic lesion. Right hip arthroplasty. Degenerative changes Soft Tissues: No radiotracer avid lesion. IMPRESSION: HEAD/NECK: * No metabolically active disease. CHEST: * Mild activity in the right axillary lymph nodes likely reactive. Tracer injection in the right arm. * Stable left breast periprosthetic uptake which is likely secondary to inflammatory changes. ABDOMEN/PELVIS: * No metabolically active disease. MUSCULOSKELETAL: * No metabolically active disease. Script Worker: [email or web address] Transcribe Date/Time: Apr 10 2024 2:35P Dictated by : SUKHJINDER SIMMONS MD This examination was interpreted and the report reviewed and electronically signed by: JOSE ADAMS MD on Apr 10 2024 3:28PM EST [id number] Normal [facility] CNOVon 03-25-2024 CNOV Normal [facility] DBT Breast - right diagnosti c for implanton 03-25-2024 IMPRESSION: There is no mammographic evidence of malignancy in the right breast. Return to annual screening mammogram is recommended. Annual mammogram will be due in 1 year. BI-RADS Category 1: Negative Interpreting Radiologist: Gui Keith M.D. Electronically signed on: 03/25/2024 Script Worker: CINDA Transcribe Date/Time: Mar 25 2024 11:23A Dictated by : GUI KEITH MD This examination was interpreted and the report reviewed and electronically signed by: GUI KEITH MD on Mar 25 2024 11:47AM [facility] DIVISION OF RADIOLOGY * * *Final Report* * * DATE OF EXAM: Mar 25 2024 11:40AM [facility] 0629 - SAMANTHA DIAG W LIN RT / PROCEDURE REASON: multiple diagnoses * * * * Physician Interpretation * * * * [place] [address] #[id number] - SAMANTHA DIAG W LIN RT HISTORY: Patient is 64 years old and is seen for diagnostic evaluation of is asymptomatic in the right breast. The patient has a history of left breast cancer in 2018. COMPARISON STUDIES: The present examination has been compared to prior imaging studies dated 02/04/2020 (mammogram), 08/10/2020 (mammogram), 04/19/2021 (mammogram), 05/31/2022 (mammogram) and 02/18/2024 (MRI). MAMMOGRAM TECHNIQUE: The study was acquired using full field digital technology and interpreted from soft copy. Digital Breast Tomosynthesis (DBT) images were obtained and used to assist in the interpretation of this examination. Computer-aided detection was utilized by the radiologist in the interpretation of this examination. MAMMOGRAM FINDINGS: The breast is heterogeneously dense, which may obscure small masses. No suspicious masses, calcifications or other abnormalities are seen in the right breast. There are no significant interval changes. DIVISION OF RADIOLOGY Provider, [facility] - 03/25/2024 * * *Final Report* * * DATE OF EXAM: Mar 25 2024 11:40AM [facility] 0629 - SAMANTHA DIAG W LIN RT / PROCEDURE REASON: multiple diagnoses * * * * Physician Interpretation * * * * [place] [address] #[id number] - SAMANTHA DIAG W LIN RT HISTORY: Patient is 64 years old and is seen for diagnostic evaluation of is asymptomatic in the right breast. The patient has a history of left breast cancer in 2018. COMPARISON STUDIES: The present examination has been compared to prior imaging studies dated 02/04/2020 (mammogram), 08/10/2020 (mammogram), 04/19/2021 (mammogram), 05/31/2022 (mammogram) and 02/18/2024 (MRI). MAMMOGRAM TECHNIQUE: The study was acquired using full field digital technology and interpreted from soft copy. Digital Breast Tomosynthesis (DBT) images were obtained and used to assist in the interpretation of this examination. Computer-aided detection was utilized by the radiologist in the interpretation of this examination. MAMMOGRAM FINDINGS: The breast is heterogeneously dense, which may obscure small masses. No suspicious masses, calcifications or other abnormalities are seen in the right breast. There are no significant interval changes. IMPRESSION IMPRESSION: There is no mammographic evidence of malignancy in the right breast. Return to annual screening mammogram is recommended. Annual mammogram will be due in 1 year. BI-RADS Category 1: Negative Interpreting Radiologist: Gui Keith M.D. Electronically signed on: 03/25/2024 Script Worker: CINDA Transcribe Date/Time: Mar 25 2024 11:23A Dictated by : GUI KEITH MD This examination was interpreted and the report reviewed and electronically signed by: GUI KEITH MD on Mar 25 2024 11:47AM EST [facility] Radiology Study observation (narrative) [facility] DBT Breast - right diagnosti c for implantOrdered By: [facility] Provider on 03-25-2024 [facility] SAMANTHA DIAG W LIN RTon 024 SAMANTHA DIAG W LIN RT Normal [facility] Abdomen Limitedon 03-24-2024 Abdomen Limited [facility] Imaging Services [address] [place] [address] [id number] Abdomen Limited MR#: [id number] Acct: [id number] Name: PAT SORTO Rep #: [id number] : 1960 F 64 From: Nicci Tracy MD PCP: Dr. Jacinta Rivas MD Status: REG CLI Study: Abdomen Limited Date of Exam: 03/24/24 Exam# [id number] Ordering [place]: [place] [id number] STUDY: ABDOMINAL ULTRASOUND - RIGHT UPPER QUADRANT REASON FOR VISIT: Female, 64 years old CHOLANGITIS TECHNIQUE: Ultrasound evaluation of the right upper quadrant was performed with real-time and static barrios-scale imaging. TECHNICAL QUALITY: Adequate. COMPARISON: 11/30/2021 FINDINGS: Liver: The liver measures 15.5 cm. There is normal echogenicity of the liver. The bile ducts are within normal limits. There is hepatic color flow. The direction of portal flow is hepatopetal. No change in 1.2 cm hyperechoic mass within the right lobe of liver likely consistent with a small hemangioma. Gallbladder: Normal distended gallbladder. The gallbladder wall measures 2 mm. There is a negative sonographic Garcia''s sign. There is no pericholecystic fluid. There are multiple echogenic structures within the gallbladder, consistent with multiple gallstones. Common Bile Duct (C.B.D.): The common bile duct measures 4 mm. Pancreas: Normal size of the head, body and tail of the pancreas. There is normal echogenicity of the pancreas. There is no demonstrated pancreatic mass or cyst. Right Kidney: Normal size of the right kidney. The right kidney measures 10.6 cm. Normal renal cortex. The right cortex measures 1.3 cm. There is no demonstrated renal mass or cyst. There is no right hydronephrosis. US/Abdomen Limited IMPRESSION: Cholelithiasis. Electronically Signed: Nicci Tracy MD at 12:47 EST , CC: Dr. Jacinta Rivas MD; Dr. Ney Hart MD Script Worker: Signed Normal [facility] Dexa Bone Density Studyon Dexa Bone Density Study [facility] Imaging Services [address] [place] [address] [id number] Dexa Bone Density Study MR#: [id number] Acct: [id number] Name: PAT SORTO Rep #: [id number] : 1960 F 64 From: Wil cox MD PCP: Dr. Jacinta Rivas MD Status: [facility] Study: Dexa Bone Density Study Date of Exam: 03/24/24 Exam# [id number] Ordering [place]: [place] [id number] STUDY: DUAL ENERGY X-RAY ABSORPTIOMETRY / DXA REASON FOR EXAM: Female, 64 years old. Z780 TECHNIQUE: Bone Mineral Density (BMD) measurements of lumbar spine and left hip were obtained. COMPARISON: None. FINDINGS: Lumbar Spine (L1-L4): g/cm2 (1.062) / T-score (0.1) / Z-score (1.9) Findings are suggestive of normal bone density with a low fracture risk. Left Femur Total: g/cm2 (0.925) / T-score (-0.1) / Z-score (1.1) Left Femoral Neck: g/cm2 (0.757) / T-score (-0.8) / Z-score (0.7) The T-Scores on the most recent prior examination were: Lumbar Spine (L1-L4): There has been improvement of bone density since the previous examination. Left Femur Total: which represents a worsening of 0.7%. BD/Dexa Bone Density Study IMPRESSION: The patient is considered normal as outlined below according to World Michael Organization (WHO) criteria with a low fracture risk. There has been improvement of bone density since the previous examination. Reference Information: The T-score is the number of standard deviations above or below the standard which is normal for young adults at their peak bone mineral density. The World Health Organization (WHO) interprets the T-scores as follows: Above -1 Normal bone density Between -1 and -2.5 Osteopenia Equal to / or below -2.5 Osteoporosis As a practical clinical guideline, osteopenia may be graded as follows: Mild -1 through -1.5 Moderate -1.6 through -2.0 Severe -2.1 through -2.4 The Z-score is the number of standard deviations above or below age-matched controls. A Z-score of less than -1.5 would be considered abnormal. References: 1. NIH Osteoporosis and Related Bone Diseases www osteo.org 2. International Society for Clinical Densitometry www iscd.org 3. National Osteoporosis Foundation www nof.org Electronically Signed: Wil Arora MD at 8:30 EST Reading Location ID and State: [address] [place] [address] , Service support , CC: Dr. Jacinta Rivas MD; Dr. Ney Hart MD Script Worker: Signed Normal [facility] CNOVon 03-18-2024 CNOV Normal [facility] HEMOGLOBIN A1C (POC)on 03-18 HbA1c (Bld) [Mass fraction] 7.2 % Abnormal 4.3 - 5.6 % [facility] Comment on above: Location:[address], [place], [address] Point of care (POC) Hemoglobin A1c (HGBA1C) testing is intended to assess glucose control and provide a management tool for patients known to have diabetes and their healthcare providers. Target HGBA1C levels may depend on specific clinical circumstances. POC HGBA1C is not intended for use as a diagnostic or screening test; laboratory-based testing should be used for diagnostic purposes. The following information is supplemental and may not be applicable to specific diabetes management situations: The POC device metal grader provides a normal range of 4.2% to 6.5% for the HGBA1C POC test. However, the [place] Diabetes Association guidelines indicate that patients with HGBA1C in the range of 5.7% to 6.4% are at increased risk for development of diabetes and that intervention by lifestyle modification may be beneficial. A HGBA1C level greater than or equal to 6.5% is considered diagnostic of diabetes, pending confirmatory testing. Use of HGBA1C testing to evaluate glucose control may not be appropriate for patients with hemoglobin variants or other conditions (e.g. anemia) that alter red blood cell lifespan. Interpretation and review of laboratory results Abnormal [facility] CNPNon 02-27-2024 CNPN Normal [facility] CNPNon 02-26-2024 CNPN Normal [facility] MRI BREAST 3D POST PROCESSIN Dagoberto 02-18-2024 MRI BREAST 3D POST PROCESSING * * *Final Report* * * DATE OF EXAM: Feb 18 2024 10:54AM [facility]CM 0788 - MRI BREAST 3D POST PROCESSING / PROCEDURE REASON: multiple diagnoses * * * * Physician Interpretation * * * * RESULT: [facility] [address] [place] [address] HISTORY: Patient is 64 years old and is seen for diagnostic evaluation of evaluation for chemotherapy response. Additional history: Personal history of left breast cancer, initially diagnosed in March 2017, status post chemotherapy, radiation therapy and left mastectomy. 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 Evaluate for interval change. COMPARISON STUDIES: The present examination has been compared to prior imaging studies dated 04/18/2017 (MRI), 08/14/2017 (MRI), 02/04/2020 (mammogram), 04/19/2021 (mammogram), 05/31/2022 (mammogram), 07/19/2022 (ultrasound), 08/01/2022 (ultrasound), 08/01/2022 (mammogram), 08/15/2022 (MRI) and 04/10/2023 (ultrasound). Additional comparison studies: PET/CT 12/30/2023, 08/19/2023, 01/28/2023. BREAST MRI: TECHNIQUE: The patient was studied using the dedicated breast coil in the Siemens 1.5 Chelsi scanner. Initial axial T1W NFS, STIR imaging was carried out followed by axial T1-weighted GRE imaging both before and after IV administration of 15 ml of Dotarem. Subsequently, subtraction imaging and 3-D reconstruction were completed on an independent workstation. An additional 4-jgcrui-gryc resolution sequence was performed after the first two 1 minute post-contrast sequences. Complex volumetric analysis requiring post processing was performed using a semi-automated software Playneryacad, on an independent workstation by the physician, with images created, reviewed, and archived. There is heterogeneous fibroglandular tissue and minimal background parenchymal enhancement on the right. Postsurgical changes from prior left mastectomy and prepectoral silicone implant reconstruction. A moderate-sized periimplant fluid collection has mildly increased compared to 03/28/2023 breast MRI. The implant is intact. No left axillary lymphadenopathy. Enhancing mass in the skin of the lower inner reconstructed left breast at site of biopsy-proven skin recurrence measures 1.5 x 0.8 x 0.7 cm on series 13 image 47 and series 16 image 209; on 03/28/2023 it measured 1.3 x 0.8 x 1.2 cm. Therefore, this area is similar to slightly increased compared to prior. Abnormal combined mass and nonmasslike enhancement in the lower outer, 5:00 posterior depth left breast extending into the inframammary fold region measures approximately 1.7 x x 2.9 x 2.1 cm, overall is somewhat difficult to measure given its infiltrative appearance, but appears objectively and subjectively similar compared to prior. It is seen on series 13 image 41 and series 16 image 250.Is extension along the pericapsular region of the left implant. No definite new areas of enhancement in the reconstructed left breast. There are a few stable borderline prominent right axillary lymph nodes, unchanged compared to remote prior breast MRIs. No right axillary lymphadenopathy suspected. No suspicious enhancing masses or areas of nonmasslike enhancement in the right breast. Few scattered enhancing foci and linear areas of nonmasslike enhancement in the right breast remain stable. No internal mammary chain lymphadenopathy. A couple anterior peridiaphragmatic lymph nodes in the right upper quadrant/right lower chest remain stable. IMPRESSION: 1. Postsurgical changes from left mastectomy and silicone implant reconstruction. Enhancing mass in the skin of the lower inner reconstructed left breast at site of known biopsy-proven skin recurrence, similar to slightly larger compared to the breast MRI on 03/28/2023. Additional abnormal mass and nonmasslike enhancement in the 5:00 reconstructed left breast extending along the implant capsule is not significantly changed. No new areas of enhancement in the reconstructed left breast. A moderate-sized left karin-implant fluid collection has mildly increased compared to the prior breast MRI. 2. No suspicious areas of enhancement in the right breast. Consider continued right breast annual mammography (last prior right breast mammogram was 05/31/2022), if felt clinically indicated given known stage 4 metastatic left breast cancer. 3. No definite lymphadenopathy. Appropriate action should be taken BI-RADS Category 6: Known Biopsy-Proven Malignancy Interpreting Radiologist: Delilah Booth M.D. Electronically signed on: 02/19/2024 Transcribed Using Voice Recognition Transcribe Date/Time: Feb 18 2024 10:52A Dictated by: DELILAH BOOTH MD This examination was interpreted and the report reviewed and electronically signed by: DELILAH BOOTH MD on Feb (more content not included)... Normal [facility] MRI BREAST WO/W IVCON BILon 02-18-2024 MRI BREAST WO/W IVCON DEYVI * * *Final Report* * * DATE OF EXAM: Feb 18 2024 10:50AM [facility]CM 0773 - MRI BREAST WO/W IVCON DEYVI / PROCEDURE REASON: multiple diagnoses * * * * Physician Interpretation * * * * RESULT: [facility] [address] [place] [address] HISTORY: Patient is 64 years old and is seen for diagnostic evaluation of evaluation for chemotherapy response. Additional history: Personal history of left breast cancer, initially diagnosed in March 2017, status post chemotherapy, radiation therapy and left mastectomy. 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 Evaluate for interval change. COMPARISON STUDIES: The present examination has been compared to prior imaging studies dated 04/18/2017 (MRI), 08/14/2017 (MRI), 02/04/2020 (mammogram), 04/19/2021 (mammogram), 05/31/2022 (mammogram), 07/19/2022 (ultrasound), 08/01/2022 (ultrasound), 08/01/2022 (mammogram), 08/15/2022 (MRI) and 04/10/2023 (ultrasound). Additional comparison studies: PET/CT 12/30/2023, 08/19/2023, 01/28/2023. BREAST MRI: TECHNIQUE: The patient was studied using the dedicated breast coil in the Siemens 1.5 Chelsi scanner. Initial axial T1W NFS, STIR imaging was carried out followed by axial T1-weighted GRE imaging both before and after IV administration of 15 ml of Dotarem. Subsequently, subtraction imaging and 3-D reconstruction were completed on an independent workstation. An additional 6-ifshvb-yizj resolution sequence was performed after the first two 1 minute post-contrast sequences. Complex volumetric analysis requiring post processing was performed using a semi-automated software Playneryacad, on an independent workstation by the physician, with images created, reviewed, and archived. There is heterogeneous fibroglandular tissue and minimal background parenchymal enhancement on the right. Postsurgical changes from prior left mastectomy and prepectoral silicone implant reconstruction. A moderate-sized periimplant fluid collection has mildly increased compared to 03/28/2023 breast MRI. The implant is intact. No left axillary lymphadenopathy. Enhancing mass in the skin of the lower inner reconstructed left breast at site of biopsy-proven skin recurrence measures 1.5 x 0.8 x 0.7 cm on series 13 image 47 and series 16 image 209; on 03/28/2023 it measured 1.3 x 0.8 x 1.2 cm. Therefore, this area is similar to slightly increased compared to prior. Abnormal combined mass and nonmasslike enhancement in the lower outer, 5:00 posterior depth left breast extending into the inframammary fold region measures approximately 1.7 x x 2.9 x 2.1 cm, overall is somewhat difficult to measure given its infiltrative appearance, but appears objectively and subjectively similar compared to prior. It is seen on series 13 image 41 and series 16 image 250.Is extension along the pericapsular region of the left implant. No definite new areas of enhancement in the reconstructed left breast. There are a few stable borderline prominent right axillary lymph nodes, unchanged compared to remote prior breast MRIs. No right axillary lymphadenopathy suspected. No suspicious enhancing masses or areas of nonmasslike enhancement in the right breast. Few scattered enhancing foci and linear areas of nonmasslike enhancement in the right breast remain stable. No internal mammary chain lymphadenopathy. A couple anterior peridiaphragmatic lymph nodes in the right upper quadrant/right lower chest remain stable. IMPRESSION: 1. Postsurgical changes from left mastectomy and silicone implant reconstruction. Enhancing mass in the skin of the lower inner reconstructed left breast at site of known biopsy-proven skin recurrence, similar to slightly larger compared to the breast MRI on 03/28/2023. Additional abnormal mass and nonmasslike enhancement in the 5:00 reconstructed left breast extending along the implant capsule is not significantly changed. No new areas of enhancement in the reconstructed left breast. A moderate-sized left karin-implant fluid collection has mildly increased compared to the prior breast MRI. 2. No suspicious areas of enhancement in the right breast. Consider continued right breast annual mammography (last prior right breast mammogram was 05/31/2022), if felt clinically indicated given known stage 4 metastatic left breast cancer. 3. No definite lymphadenopathy. Appropriate action should be taken BI-RADS Category 6: Known Biopsy-Proven Malignancy Interpreting Radiologist: Delilah Booth M.D. Electronically signed on: 02/19/2024 Transcribed Using Voice Recognition Transcribe Date/Time: Feb 18 2024 10:50A Dictated by: DELILAH BOOTH MD This examination was interpreted and the report reviewed and electronically signed by: DELILAH BOOTH MD on Feb 18 (more content not included)... Normal [facility] CNOVon 02-05-2024 CNOV Normal [facility] ON DEMANDon Ordered by an unspecified provider. [facility] CNOVon 01-13-2024 CNOV Normal [facility] [facility] X[facility] HIP 2V AP/LAT RTon 2023 XR HIP 2V AP/LAT RT * * *Final Report* * * DATE OF EXAM: Jan 13 2024 1:59PM LALO 5280 - XR HIP 2V AP/LAT RT / PROCEDURE REASON: M25.551-Pain in right hip * * * * Physician Interpretation * * * * PROCEDURE: Right hip INDICATION: Pain in right hip .right hip pain started around 9 months ago TECHNIQUE: XR AP pelvis, crosstable lateral right hip COMPARISON: 03/26/2022 FINDINGS: The right total hip arthroplasty remains in satisfactory position. No periprosthetic lucency or fracture. Advanced left hip osteoarthrosis. Sacroiliac joints and symphysis pubis are maintained. IMPRESSION: No acute abnormality Script Worker: PSCB Transcribe Date/Time: Jan 13 2024 3:50P Dictated by : WENDY MITCHELL MD This examination was interpreted and the report reviewed and electronically signed by: WENDY MITCHELL MD on Jan 13 2024 3:51PM EST [id number] [facility] XR Hip - right AP and Latera carey 01-13-2024 IMPRESSION: No acute abnormality Script Worker: PSCB Transcribe Date/Time: Jan 13 2024 3:50P Dictated by : WENDY MITCHELL MD This examination was interpreted and the report reviewed and electronically signed by: WENDY MITCHELL MD on Jan 13 2024 3:51PM EST [facility] * * *Final Report* * * DATE OF EXAM: Jan 13 2024 1:59PM MDO 5280 - XR HIP 2V AP/LAT RT / PROCEDURE REASON: M25.551-Pain in right hip * * * * Physician Interpretation * * * * PROCEDURE: Right hip INDICATION: Pain in right hip .right hip pain started around 9 months ago TECHNIQUE: XR AP pelvis, crosstable lateral right hip COMPARISON: 03/26/2022 FINDINGS: The right total hip arthroplasty remains in satisfactory position. No periprosthetic lucency or fracture. Advanced left hip osteoarthrosis. Sacroiliac joints and symphysis pubis are maintained. [facility] Provider, Krista Reyes - 01/13/2024 * * *Final Report* * * DATE OF EXAM: Jan 13 2024 1:59PM MDO 5280 - XR HIP 2V AP/LAT RT / PROCEDURE REASON: M25.551-Pain in right hip * * * * Physician Interpretation * * * * PROCEDURE: Right hip INDICATION: Pain in right hip .right hip pain started around 9 months ago TECHNIQUE: XR AP pelvis, crosstable lateral right hip COMPARISON: 03/26/2022 FINDINGS: The right total hip arthroplasty remains in satisfactory position. No periprosthetic lucency or fracture. Advanced left hip osteoarthrosis. Sacroiliac joints and symphysis pubis are maintained. IMPRESSION IMPRESSION: No acute abnormality Script Worker: [facility] Transcribe Date/Time: Jan 13 2024 3:50P Dictated by : WENDY MITCHELL MD This examination was interpreted and the report reviewed and electronically signed by: WENDY MITCHELL MD on Jan 13 2024 3:51PM EST [facility] Radiology Study observation (narrative) [place] [facility] XR Hip - right AP and Latera lOrdered By: [facility] Provider on 01-13-2024 [facility] CBC W Auto Differential pane l (Bld)on 01-06-2024 Basophils (Bld) [#/Vol] 0.04 10*3/uL Normal <0.11 [facility] Comment on above: Order Comment: Speci men Type: BLOOD SPECIMENOrdering Facility: [facility] Address: [address] [place] [address] Performed By: #### 5 7021-8 ####[facility] MILLWNCLIA [id number] [place] [address] [place] Basophils/100 WBC (Bld) 0.7 % Normal C [facility] Comment on above: Order Comment: Speci men Type: BLOOD SPECIMENOrdering Facility: [facility] Address: [address] [place] [address] Performed By: #### 5 7021-8 ####[facility] HOSPITALLIA [id number] [place] [address] [place] Differential cell count method Nom (Bld) Auto Normal [facility] Comment on above: Order Comment: Speci men Type: BLOOD SPECIMENOrdering Facility: [facility] Address: [address] [place] [address] Performed By: #### 5 7021-8 ####[facility]ITALWMNLIA [id number] [place] [address] [place] Eosinophils (Bld) [#/Vol] 0.10 10*3/uL Normal <0.46 [facility] Comment on above: Order Comment: Speci men Type: BLOOD SPECIMENOrdering Facility: [facility] Address: [address] [place] [address] Performed By: #### 5 7021-8 ####[facility]ITALWNCLIA [id number] [place] [address] [place] Eosinophils/100 WBC (Bld) 1.7 % Normal [facility] Comment on above: Order Comment: Speci men Type: BLOOD SPECIMENOrdering Facility: [facility] Address: [address] [place] [address] Performed By: #### 5 7021-8 ####[facility]THNCLIA [id number] [place] [address] [place] Erythrocyte distribution width (RBC) [Ratio] 13.9 % Normal 11.5-15.0 [facility] Comment on above: Order Comment: Speci men Type: BLOOD SPECIMENOrdering Facility: [facility] Address: [address] [place] [address] Performed By: #### 5 7021-8 ####[facility] [id number] [place] [address] [place] Hematocrit (Bld) [Volume fraction] 32.5 % Low 36.0-46.0 [facility] Comment on above: Order Comment: Speci men Type: BLOOD SPECIMENOrdering Facility: [facility] Address: [address] [place] [address] Performed By: #### 5 7021-8 ####[facility] [id number] [place] [address] [place] Hemoglobin (Bld) [Mass/Vol] 10.9 g/dL Low 11.5-15.5 [facility] Comment on above: Order Comment: Speci men Type: BLOOD SPECIMENOrdering Facility: [facility] Address: [address] [place] [address] Performed By: #### 5 7021-8 ####[facility]THNCLIA [id number] [place] [address] [place] Immature granulocytes (Bld) [#/Vol] 0.03 10*3/uL Normal <0.10 [facility] Comment on above: Order Comment: Speci men Type: BLOOD SPECIMENOrdering Facility: [facility] Address: [address] [place] [address] Performed By: #### 5 7021-8 ####[facility]THNCLIA [id number] [place] [address] [place] Immature granulocytes/100 WBC (Bld) 0.5 % Normal [facility] Comment on above: Order Comment: Speci men Type: BLOOD SPECIMENOrdering Facility: [facility] Address: [address] [place] [address] Performed By: #### 5 7021-8 ####[facility] NORTHYISSELA [id number] [place] [address] [place] Lymphocytes (Bld) [#/Vol] 1.41 10*3/uL Normal 1.00-4.00 [facility] Comment on above: Order Comment: Speci men Type: BLOOD SPECIMENOrdering Facility: [facility] Address: [address] [place] [address] Performed By: #### 5 7021-8 ####[facility]CARL[facility] [id number] [place] [address] [place] Lymphocytes/100 WBC (Bld) 23.5 % Normal [facility] Comment on above: Order Comment: Speci men Type: BLOOD SPECIMENOrdering Facility: [facility] Address: [address] [place] [address] Performed By: #### 5 7021-8 ####[facility] NORTHNIA [id number] [place] [address] [place] MCH (RBC) [Entitic mass] 27.9 pg Normal 26.0-34.0 [facility] Comment on above: Order Comment: Speci men Type: BLOOD SPECIMENOrdering Facility: [facility] Address: [address] [place] [address] Performed By: #### 5 7021-8 ####[facility]THNCLIA [id number] [place] [address] [place] MCHC (RBC) [Mass/Vol] 33.5 g/dL Normal 30.5-36.0 [facility] Comment on above: Order Comment: Speci men Type: BLOOD SPECIMENOrdering Facility: [facility] Address: [address] [place] [address] Performed By: #### 5 7021-8 ####[facility] MAURYWNCLIA [id number] [place] [address] [place] MCV (RBC) [Entitic vol] 83.1 fL Normal 80.0-100.0 C [facility] Comment on above: Order Comment: Speci men Type: BLOOD SPECIMENOrdering Facility: [facility] Address: [address] [place] [address] Performed By: #### 5 7021-8 ####[facility] HOSPITALLIA [id number] [place] [address] [place] Monocytes (Bld) [#/Vol] 0.46 10*3/uL Normal <0.87 [facility] Comment on above: Order Comment: Speci men Type: BLOOD SPECIMENOrdering Facility: [facility] Address: [address] [place] [address] Performed By: #### 5 7021-8 ####[facility]ITALA [id number] [place] [address] [place] Monocytes/100 WBC (Bld) 7.7 % Normal C [facility] Comment on above: Order Comment: Speci men Type: BLOOD SPECIMENOrdering Facility: [facility] Address: [address] [place] [address] Performed By: #### 5 7021-8 ####[facility] NORTHCARLOSLIA [id number] [place] [address] [place] Neutrophils (Bld) [#/Vol] 3.95 10*3/uL Normal 1.45-7.50 [facility] Comment on above: Order Comment: Speci men Type: BLOOD SPECIMENOrdering Facility: [facility] Address: [address] [place] [address] Performed By: #### 5 7021-8 ####[facility] NORTHCARLOSLIA [id number] [place] [id number] [place] Neutrophils/100 WBC (Bld) 65.9 % Normal [facility] Comment on above: Order Comment: Speci men Type: BLOOD SPECIMENOrdering Facility: [facility] Address: [address] [place] [address] Performed By: #### 5 7021-8 ####[facility] [id number] [place] [address] [place] Nucleated RBC (Bld) [#/Vol] 10*3/uL Normal <0.01 [facility] Comment on above: Order Comment: Speci men Type: BLOOD SPECIMENOrdering Facility: [facility] Address: [address] [place] [address] Performed By: #### 5 7021-8 ####[facility] [id number] [place] [address] [place] Nucleated RBC/100 WBC (Bld) [Ratio] 0.0 /100 WBC Normal [facility] Comment on above: Order Comment: Speci men Type: BLOOD SPECIMENOrdering Facility: [facility] Address: [address] [place] [address] Performed By: #### 5 7021-8 ####[facility] [id number] [place] [address] [place] Platelet mean volume (Bld) [Entitic vol] 10.1 fL Normal 9.0-12.7 [facility] Comment on above: Order Comment: Speci men Type: BLOOD SPECIMENOrdering Facility: [facility] Address: [address] [place] [address] Performed By: #### 5 7021-8 ####[facility] [id number] [place] [address] [place] Platelets (Bld) [#/Vol] 218 10*3/uL Normal 150-400 [facility] Comment on above: Order Comment: Speci men Type: BLOOD SPECIMENOrdering Facility: [facility] Address: [address] [place] [address] Performed By: #### 5 7021-8 ####[facility] FLORESITAYISSELA [id number] [place] [address] [place] RBC (Bld) [#/Vol] 3.91 10*6/uL Normal 3.90-5.[address] [facility] Comment on above: Order Comment: Speci men Type: BLOOD SPECIMENOrdering Facility: [facility] Address: [address] [place], [place] [address] Performed By: #### 5 7021-8 ####[facility] MAURYROMELIA [id number] [place] [address] [place] WBC (Bld) [#/Vol] 5.99 10*3/uL Normal 3.70-11.[address] [facility] Comment on above: Order Comment: Speci men Type: BLOOD SPECIMENOrdering Facility: [facility] Address: [address] [place] [address] Performed By: #### 5 7021-8 ####[facility] MAURYLEJUNIORYISSELA [id number] [place] [address] [place] CNOVSPon 01-06-2024 CNOVSP Normal [facility] CNPNon 01-06-2024 CNPN Normal [facility] Comprehensive metabolic 2000 panelon 01-06-2024 Albumin [Mass/Vol] 4.0 g/dL Normal 3.9-4.9 [facility] Comment on above: Order Comment: Speci men Type: BLOOD SPECIMENOrdering Facility: [facility] Address: [address] [place] [address] Performed By: #### 2 4323-8 ####[facility]PITALWNCLIA [id number] [place] [address] [place] ALP [Catalytic activity/Vol] 68 U/L Normal 34-123 [facility] Comment on above: Order Comment: Speci men Type: BLOOD SPECIMENOrdering Facility: [facility] Address: [address] [place] [address] Performed By: #### 2 4323-8 ####[facility] SHARAD MILLTOWNCLIA [id number] [place] [address] [place] ALT [Catalytic activity/Vol] 13 U/L Normal 7-38 [facility] Comment on above: Order Comment: Speci men Type: BLOOD SPECIMENOrdering Facility: [facility] Address: [address] [place] [address] Performed By: #### 2 4323-8 ####[facility]ITALWNCLIA [id number] [place] [address] [place] Anion gap [Moles/Vol] 12 mmol/L Normal 8-15 [facility] Comment on above: Order Comment: Speci men Type: BLOOD SPECIMENOrdering Facility: [facility] Address: [address] [place] [address] Performed By: #### 2 4323-8 ####[facility]OSPITALWMNLIA [id number] [place] [address] [place] AST [Catalytic activity/Vol] 20 U/L Normal 13-35 [facility] Comment on above: Order Comment: Speci men Type: BLOOD SPECIMENOrdering Facility: [facility] Address: [address] [place] [address] Performed By: #### 2 4323-8 ####[facility] SHARAD MILLTOWNCLIA [id number] [place] [address] [place] Bilirubin [Mass/Vol] 0.3 mg/dL Normal 0.2-1.3 [facility] Comment on above: Order Comment: Speci men Type: BLOOD SPECIMENOrdering Facility: [facility] Address: [address] [place] [address] Performed By: #### 2 4323-8 ####[facility] SHARAD MILLTOWNCLIA [id number] [place] [address] [place] Calcium [Mass/Vol] 9.6 mg/dL Normal 8.5-10.2 [facility] Comment on above: Order Comment: Speci men Type: BLOOD SPECIMENOrdering Facility: [facility] Address: [address] [place] [address] Performed By: #### 2 4323-8 ####[facility] MILLTOWNCLIA [id number] [place] [address] [place] Chloride [Moles/Vol] 103 mmol/L Normal 98-107 [facility] Comment on above: Order Comment: Speci men Type: BLOOD SPECIMENOrdering Facility: [facility] Address: [address] [place] [address] Performed By: #### 2 4323-8 ####[facility] MILLWNCLIA [id number] [place] [address] [place] CO2 [Moles/Vol] 26 mmol/L Normal 22-30 [facility] Comment on above: Order Comment: Speci men Type: BLOOD SPECIMENOrdering Facility: [facility] Address: [address] [place] [address] Performed By: #### 2 4323-8 ####[facility] MILLTOWNCLIA [id number] [place] [address] [place] Creatinine [Mass/Vol] 0.81 mg/dL Normal 0.58-0.96 [facility] Comment on above: Order Comment: Speci men Type: BLOOD SPECIMENOrdering Facility: [facility] Address: [address] [place] [address] Performed By: #### 2 4323-8 ####[facility] MILLWNCLIA [id number] [place] [address] [place] Creatinine and Glomerular filtration rate.predicted panel (S/P/Bld) 81 mL/min/1.73m??? Normal >=60 [facility] Comment on above: Order Comment: Sunny lynn Type: BLOOD SPECIMENOrdering Facility: [facility] Address: [address] [place] [address] Result Comment: Sherlyn mated Glomerular Filtration Rate (eGFR) is calculated using the 2020 CKD-EPI creatinine equation. This equation utilizes serum creatinine, sex, and age as parameters. The creatinine assay has traceable calibration to isotope dilution-mass spectrometry. Refer to KDIGO guidelines for clinical interpretation. In patients with unstable renal function, e.g. those with acute kidney injury, the eGFR may not accurately reflect actual GFR. Performed By: #### 2 4323-8 ####[facility] [id number] [place] [address] [place] Glucose [Mass/Vol] 171 mg/dL High 74-99 [facility] Comment on above: Order Comment: Sunny lynn Type: BLOOD SPECIMENOrdering Facility: [facility] Address: [address] [place] [address] Result Comment: The [place] Diabetes Association (ADA) provides guidance for cutoff values for fasting glucose and random glucose. The ADA defines fasting as no caloric intake for at least 8 hours. Fasting plasma glucose results between 100 to 125 mg/dL indicate increased risk for diabetes (prediabetes).Fasting plasma glucose results greater than or equal to 126 mg/dL meet the criteria for diagnosis of diabetes. In the absence of unequivocal hyperglycemia, results should be confirmed by repeat testing. In a patient with classic symptoms of hyperglycemia or hyperglycemic crisis, random plasma glucose results greater than or equal to 200 mg/dL meet the criteria for diagnosis of diabetes.Reference: Standards of Medical Care in Diabetes 2016, [place] [employer]. Diabetes Care. 2016.39(Suppl 1). Performed By: #### 2 4323-8 ####[facility] NORTHNCLIA [id number] [place] [address] [place] Potassium [Moles/Vol] 3.6 mmol/L Low 3.7-5.1 [facility] Comment on above: Order Comment: Speci men Type: BLOOD SPECIMENOrdering Facility: [facility] Address: [address] [place] [address] Performed By: #### 2 4323-8 ####[facility] FLORESITANCASHAA [id number] [place] [address] [place] Protein [Mass/Vol] 7.1 g/dL Normal 6.3-8.0 [facility] Comment on above: Order Comment: Speci men Type: BLOOD SPECIMENOrdering Facility: [facility] Address: [address] [place] [address] Performed By: #### 2 4323-8 ####[facility]THNCL[facility] [id number] [place] [address] [place] Sodium [Moles/Vol] 141 mmol/L Normal 136-144 [facility] Comment on above: Order Comment: Speci men Type: BLOOD SPECIMENOrdering Facility: [facility] Address: [address] [place] [address] Performed By: #### 2 4323-8 ####[facility] HOSPITALLIA [id number] [place] [address] [place] Urea nitrogen [Mass/Vol] 21 mg/dL Normal 7-21 [facility] Comment on above: Order Comment: Speci men Type: BLOOD SPECIMENOrdering Facility: [facility] Address: [address] [place] [address] Performed By: #### 2 4323-8 ####[facility]OSPITALLIA [id number] [place] [address] [place] CNPNon 01-02-2024 CNPN Normal [facility] GLUCOSE, BLOOD (POC)on 12-29 Glucose [Mass/Vol] 142 mg/dL Abnormal 74 - 99 mg/dL [facility] Comment on above: Location:[facility] [place], [place], [address] The Accu-Chek Inform II glucose meter has not been approved for testing on patients receiving intensive medical intervention or therapy and results from this point of care glucose test should not be used for patient management decisions in these cases. Inaccurate results may also occur from other interfering factors, such as N-acetylcysteine (blood concentrations of greater than 5mg/dL), galactose, extremes of hematocrit (<10 or >65), or high doses of ascorbic acid (vitamin C) greater than 3mg/dL. Consider alternate testing mechanisms (e.g. core lab, blood gas instrument) in the above situations. Interpretation and review of laboratory results Abnormal [facility] NM PET/CT SKULL-THIGH SUBQon 12-30-2023 NM PET/CT SKULL-THIGH SUBQ * * *Final Report* * * DATE OF EXAM: Dec 30 2023 9:01AM MDP 0063 - NM PET/CT SKULL-THIGH SUBQ / PROCEDURE REASON: multiple diagnoses * * * * Physician Interpretation * * * * EXAMINATION: BODY FDG PET-CT CLINICAL HISTORY: Left breast lower outer quadrant carcinoma. EXAM CATEGORY: Subsequent treatment strategy. TECHNIQUE: Radiopharmaceutical was administered intravenously followed by PET imaging from the eyes to thighs. Free breathing, low dose CT of the same body region was acquired without IV contrast for attenuation correction and anatomic localization. Unenhanced imaging is limited for the evaluation of some pathology and the acquired CT was not designed to produce diagnostic CT scan quality. Physiologic/non-patholo gic uptake in some body regions could confound or obscure some pathology. * CT Dose-Length Product (DLP): 316 mGy*cm * CT Dose Reduction Employed: Yes * Blood glucose: 142 mg/dL * Injected activity: 10.0 mCi * Uptake Time: 49 minutes * Radiopharmaceutical: O15-Ywwxwpryzmvqsxgfyc (FDG) COMPARISON: FDG PET/CT 08/19/2023, 05/01/2023 RESULT: REFERENCES: FDG uptake is used as a surrogate marker for glucose metabolism. All reported standardized uptake values represent maximum SUV (SUVmax) per body weight, unless otherwise specified. SUV reference values, as follows: * Blood Pool (Descending Aorta): SUVmax 2.1 * Background Liver: SUVmax 3.0; Localizer Images: No additional findings. HEAD AND NECK: Head: No radiotracer avid lesion or mass effect in the imaged intracranial compartment. Aerodigestive Tract: No radiotracer avid lesion. Lymph Nodes: No radiotracer avid lymphadenopathy. Neck Soft Tissues: No radiotracer avid thyroid nodule. CHEST: Lungs and Pleura: No radiotracer avid mass, nodule, or consolidation. Non-FDG avid left apex presumed scarring redemonstrated. No pleural effusion. Lymph Nodes: Stable minimal FDG uptake along the right axillary merlyn basin (max SUV 1.8, stable). No new hypermetabolic intrathoracic lymph nodes. Mediastinum: No radiotracer avid mass. Cardiovascular: Blood pool activity. No pericardial effusion. Normal heart size. Chest Wall: Postsurgical changes of left mastectomy with implant reconstruction. Mild stranding within the surrounding subcutaneous tissues and adjacent musculature posteriorly with decreasing low-level FDG uptake (Max SUV 2.5, previously 3.2), reflecting postsurgical changes. ABDOMEN AND PELVIS: Hepatobiliary: No radiotracer avid lesion. No measurable mass. Cholelithiasis. Spleen: No radiotracer avid lesion. No splenomegaly. Pancreas: No radiotracer avid lesion. Adrenals: No radiotracer avid nodule. Urinary Tract: No demonstration of the 1.4 cm right renal staghorn calculus, and mild hydronephrosis. No radiopaque calculi on the left. Physiologic radiotracer excretion in the renal collecting systems and urinary bladder. GI Tract: No radiotracer avid lesion. No bowel dilation. Colonic diverticulosis without evidence of diverticulitis. Normal appendix. Peritoneum: No radiotracer avid lesion. No ascites. Lymph Nodes: No radiotracer avid lymphadenopathy. Vasculature: Blood pool activity. Pelvic Organs: No radiotracer avid lesion. MUSCULOSKELETAL: Bones: No radiotracer avid lesion. No lytic or sclerotic lesion. Right hip arthroplasty. Soft Tissues: No radiotracer avid lesion. IMPRESSION: HEAD/NECK: * No metabolically active disease. CHEST: * No metabolically active disease. * Slightly improved left breast periprosthetic uptake compared to 08/19/2023, favored to be inflammatory. Suggest correlation with the clinical history of exam findings, and attention on follow-up studies. * Stable right axillary node with minimal FDG uptake. ABDOMEN/PELVIS: * No metabolically active disease. MUSCULOSKELETAL: * No metabolically active disease. Script Worker: MARTÍNEZ Transcribe Date/Time: Dec 30 2023 1:24P Dictated by : SUKHJINDER POSEY DO This examination was interpreted and the report reviewed and electronically signed by: LAMIN HARRINGTON MD on Dec 30 2023 3:10PM EST [id number] Normal [facility] PET+CT Guidance for localiza tion of tumor of Skull base to mid-thigh-- W 18F-FDG Karyn 12-30-2023 IMPRESSION: HEAD/NECK: * No metabolically active disease. CHEST: * No metabolically active disease. * Slightly improved left breast periprosthetic uptake compared to 08/19/2023, favored to be inflammatory. Suggest correlation with the clinical history of exam findings, and attention on follow-up studies. * Stable right axillary node with minimal FDG uptake. ABDOMEN/PELVIS: * No metabolically active disease. MUSCULOSKELETAL: * No metabolically active disease. Script Worker: MARTÍNEZ Transcribe Date/Time: Dec 30 2023 1:24P Dictated by : SUKHJINDER POSEY DO This examination was interpreted and the report reviewed and electronically signed by: LAMIN HARRINGTON MD on Dec 30 2023 3:10PM [facility] * * *Final Report* * * DATE OF EXAM: Dec 30 2023 9:01AM MDP 0063 - NM PET/CT SKULL-THIGH SUBQ / PROCEDURE REASON: multiple diagnoses * * * * Physician Interpretation * * * * EXAMINATION: BODY FDG PET-CT CLINICAL HISTORY: Left breast lower outer quadrant carcinoma. EXAM CATEGORY: Subsequent treatment strategy. TECHNIQUE: Radiopharmaceutical was administered intravenously followed by PET imaging from the eyes to thighs. Free breathing, low dose CT of the same body region was acquired without IV contrast for attenuation correction and anatomic localization. Unenhanced imaging is limited for the evaluation of some pathology and the acquired CT was not designed to produce diagnostic CT scan quality. Physiologic/non-patholo gic uptake in some body regions could confound or obscure some pathology. * CT Dose-Length Product (DLP): 316 mGy*cm * CT Dose Reduction Employed: Yes * Blood glucose: 142 mg/dL * Injected activity: 10.0 mCi * Uptake Time: 49 minutes * Radiopharmaceutical: [id number] (FDG) COMPARISON: FDG PET/CT 08/19/2023, 05/01/2023 RESULT: REFERENCES: FDG uptake is used as a surrogate marker for glucose metabolism. All reported standardized uptake values represent maximum SUV (SUVmax) per body weight, unless otherwise specified. SUV reference values, as follows: * Blood Pool (Descending Aorta): SUVmax 2.1 * Background Liver: SUVmax 3.0; Localizer Images: No additional findings. HEAD AND NECK: Head: No radiotracer avid lesion or mass effect in the imaged intracranial compartment. Aerodigestive Tract: No radiotracer avid lesion. Lymph Nodes: No radiotracer avid lymphadenopathy. Neck Soft Tissues: No radiotracer avid thyroid nodule. CHEST: Lungs & Pleura: No radiotracer avid mass, nodule, or consolidation. Non-FDG avid left apex presumed scarring redemonstrated. No pleural effusion. Lymph Nodes: Stable minimal FDG uptake along the right axillary [place] (max SUV 1.8, stable). No new hypermetabolic intrathoracic lymph nodes. Mediastinum: No radiotracer avid mass. Cardiovascular: Blood pool activity. No pericardial effusion. Normal heart size. Chest Wall: Postsurgical changes of left mastectomy with implant reconstruction. Mild stranding within the surrounding subcutaneous tissues and adjacent musculature posteriorly with decreasing low-level FDG uptake (Max SUV 2.5, previously 3.2), reflecting postsurgical changes. ABDOMEN AND PELVIS: Hepatobiliary: No radiotracer avid lesion. No measurable mass. Cholelithiasis. Spleen: No radiotracer avid lesion. No splenomegaly. Pancreas: No radiotracer avid lesion. Adrenals: No radiotracer avid nodule. Urinary Tract: No demonstration of the 1.4 cm right renal staghorn calculus, and mild hydronephrosis. No radiopaque calculi on the left. Physiologic radiotracer excretion in the renal collecting systems and urinary bladder. GI Tract: No radiotracer avid lesion. No bowel dilation. Colonic diverticulosis without evidence of diverticulitis. Normal appendix. Peritoneum: No radiotracer avid lesion. No ascites. Lymph Nodes: No radiotracer avid lymphadenopathy. Vasculature: Blood pool activity. Pelvic Organs: No radiotracer avid lesion. MUSCULOSKELETAL: Bones: No radiotracer avid lesion. No lytic or sclerotic lesion. Right hip arthroplasty. Soft Tissues: No radiotracer avid lesion. [facility] Provider, Krista Welsh [place] - 12/30/2023 * * *Final Report* * * DATE OF EXAM: Dec 30 2023 9:01AM MDP 0063 - NM PET/CT SKULL-THIGH SUBQ / PROCEDURE REASON: multiple diagnoses * * * * Physician Interpretation * * * * EXAMINATION: BODY FDG PET-CT CLINICAL HISTORY: Left breast lower outer quadrant carcinoma. EXAM CATEGORY: Subsequent treatment strategy. TECHNIQUE: Radiopharmaceutical was administered intravenously followed by PET imaging from the eyes to thighs. Free breathing, low dose CT of the same body region was acquired without IV contrast for attenuation correction and anatomic localization. Unenhanced imaging is limited for the evaluation of some pathology and the acquired CT was not designed to produce diagnostic CT scan quality. Physiologic/non-patholo gic uptake in some body regions could confound or obscure some pathology. * CT Dose-Length Product (DLP): 316 mGy*cm * CT Dose Reduction Employed: Yes * Blood glucose: 142 mg/dL * Injected activity: 10.0 mCi * Uptake Time: 49 minutes * Radiopharmaceutical: [id number] (FDG) COMPARISON: FDG PET/CT 08/19/2023, 05/01/2023 RESULT: REFERENCES: FDG uptake is used as a surrogate marker for glucose metabolism. All reported standardized uptake values represent maximum SUV (SUVmax) per body weight, unless otherwise specified. SUV reference values, as follows: * Blood Pool (Descending Aorta): SUVmax 2.1 * Background Liver: SUVmax 3.0; Localizer Images: No additional findings. HEAD AND NECK: Head: No radiotracer avid lesion or mass effect in the imaged intracranial compartment. Aerodigestive Tract: No radiotracer avid lesion. Lymph Nodes: No radiotracer avid lymphadenopathy. Neck Soft Tissues: No radiotracer avid thyroid nodule. CHEST: Lungs & Pleura: No radiotracer avid mass, nodule, or consolidation. Non-FDG avid left apex presumed scarring redemonstrated. No pleural effusion. Lymph Nodes: Stable minimal FDG uptake along the right axillary [place] (max SUV 1.8, stable). No new hypermetabolic intrathoracic lymph nodes. Mediastinum: No radiotracer avid mass. Cardiovascular: Blood pool activity. No pericardial effusion. Normal heart size. Chest Wall: Postsurgical changes of left mastectomy with implant reconstruction. Mild stranding within the surrounding subcutaneous tissues and adjacent musculature posteriorly with decreasing low-level FDG uptake (Max SUV 2.5, previously 3.2), reflecting postsurgical changes. ABDOMEN AND PELVIS: Hepatobiliary: No radiotracer avid lesion. No measurable mass. Cholelithiasis. Spleen: No radiotracer avid lesion. No splenomegaly. Pancreas: No radiotracer avid lesion. Adrenals: No radiotracer avid nodule. Urinary Tract: No demonstration of the 1.4 cm right renal staghorn calculus, and mild hydronephrosis. No radiopaque calculi on the left. Physiologic radiotracer excretion in the renal collecting systems and urinary bladder. GI Tract: No radiotracer avid lesion. No bowel dilation. Colonic diverticulosis without evidence of diverticulitis. Normal appendix. Peritoneum: No radiotracer avid lesion. No ascites. Lymph Nodes: No radiotracer avid lymphadenopathy. Vasculature: Blood pool activity. Pelvic Organs: No radiotracer avid lesion. MUSCULOSKELETAL: Bones: No radiotracer avid lesion. No lytic or sclerotic lesion. Right hip arthroplasty. Soft Tissues: No radiotracer avid lesion. IMPRESSION IMPRESSION: HEAD/NECK: * No metabolically active disease. CHEST: * No metabolically active disease. * Slightly improved left breast periprosthetic uptake compared to 08/19/2023, favored to be inflammatory. Suggest correlation with the clinical history of exam findings, and attention on follow-up studies. * Stable right axillary node with minimal FDG uptake. ABDOMEN/PELVIS: * No metabolically active disease. MUSCULOSKELETAL: * No metabolically active disease. Script Worker: MARTÍNEZ Transcribe Date/Time: Dec 30 2023 1:24P Dictated by : SUKHJINDER POSEY DO This examination was interpreted and the report reviewed and electronically signed by: LAMIN HARRINGTON MD on Dec 30 2023 3:10PM [facility] Radiology Study observation (narrative) [facility]+CT Guidance for localiza tion of tumor of Skull base to mid-thigh-- W 18F-FDG IVOrdered By: [facility] Provider on 12-30-2023 [facility] US ABD RIGHT UPPER QUADRANTo n 11-19-2023 US ABD RIGHT UPPER QUADRANT * * *Final Report* * * DATE OF EXAM: Nov 19 2023 11:01AM LDU 1032 - US ABD RIGHT UPPER QUADRANT / PROCEDURE REASON: Right upper quadrant pain * * * * Physician Interpretation * * * * EXAMINATION: RIGHT UPPER QUADRANT AND SPLEEN ULTRASOUND CLINICAL HISTORY: Right upper quadrant pain TECHNIQUE: Sonography of the right upper quadrant and spleen was performed. Images were obtained and stored in a permanent archive. MQ: [id number]_[email or web address] COMPARISON: PET/CT 08/19/2023 and prior RESULT: Pancreas: Normal sonographic appearance. Portions obscured: tail Liver: Echotexture: Normal, homogeneous. Echogenicity: Normal Surface contour: Smooth Lesions: None. Biliary: No intrahepatic biliary duct dilation. CBD: 0.5 cm at the hilum. Gallbladder: Normal caliber -Contents: Cholelithiasis and sludge present -Wall: Normal -Other: No pericholecystic fluid. Negative sonographic Garcia sign Right Kidney: A 1.7 cm right renal pole echogenic cortical lesion in the anterior aspect of the superior right renal pole, likely corresponding to the hypoattenuating lesion seen on CT, suspected hemorrhagic changes within a cyst noted on prior's. No hydronephrosis. Confluent echogenic foci in the inferior renal pole and measure up to 1.6 cm representing a nonobstructing calculus noted on prior exams. Ascites: None. Spleen: The craniocaudal length of the spleen is 9.4 cm, within normal limits. Stable 2.1 cm cystic lesion as noted on the prior MRI. Other: Visualized portions of the left kidney demonstrate no hydronephrosis. IMPRESSION: Nonobstructing calculi in the inferior right renal pole. No hydronephrosis. Cholelithiasis without evidence of acute inflammation. Other chronic findings, as above. Script Worker: [facility] Transcribe Date/Time: Nov 21 2023 3:42P Dictated by : TELMA GERBER MD This examination was interpreted and the report reviewed and electronically signed by: TELMA GERBER MD on Nov 21 2023 3:51PM EST [id number] Normal [facility] US ABD SPLEEN -NBon 11-19-19 US ABD SPLEEN -NB * * *Final Report* * * DATE OF EXAM: Nov 19 2023 11:01AM LDU 1232 - US ABD SPLEEN -NB / PROCEDURE REASON: Right upper quadrant pain * * * * Physician Interpretation * * * * EXAMINATION: RIGHT UPPER QUADRANT AND SPLEEN ULTRASOUND CLINICAL HISTORY: Right upper quadrant pain TECHNIQUE: Sonography of the right upper quadrant and spleen was performed. Images were obtained and stored in a permanent archive. MQ: [email or web address]_[email or web address] COMPARISON: PET/CT 08/19/2023 and prior RESULT: Pancreas: Normal sonographic appearance. Portions obscured: tail Liver: Echotexture: Normal, homogeneous. Echogenicity: Normal Surface contour: Smooth Lesions: None. Biliary: No intrahepatic biliary duct dilation. CBD: 0.5 cm at the hilum. Gallbladder: Normal caliber -Contents: Cholelithiasis and sludge present -Wall: Normal -Other: No pericholecystic fluid. Negative sonographic Garcia sign Right Kidney: A 1.7 cm right renal pole echogenic cortical lesion in the anterior aspect of the superior right renal pole, likely corresponding to the hypoattenuating lesion seen on CT, suspected hemorrhagic changes within a cyst noted on prior's. No hydronephrosis. Confluent echogenic foci in the inferior renal pole and measure up to 1.6 cm representing a nonobstructing calculus noted on prior exams. Ascites: None. Spleen: The craniocaudal length of the spleen is 9.4 cm, within normal limits. Stable 2.1 cm cystic lesion as noted on the prior MRI. Other: Visualized portions of the left kidney demonstrate no hydronephrosis. IMPRESSION: Nonobstructing calculi in the inferior right renal pole. No hydronephrosis. Cholelithiasis without evidence of acute inflammation. Other chronic findings, as above. Script Worker: MARTÍNEZ Transcribe Date/Time: Nov 21 2023 3:42P Dictated by : TELMA GERBER MD This examination was interpreted and the report reviewed and electronically signed by: TELMA GERBER MD on Nov 21 2023 3:51PM EST [id number] Normal [facility] UA DIP, URINE (POC)on 2023 BILIRUBIN UA (POCT) Small Abnormal Negative [place] CLARITY UA (POCT) Cloudy [facility] COLOR UA (POCT) Dark yellow [facility] GLUCOSE UA (POCT) 100 mg/dL Abnormal Negative [facility] Hemoglobin Ql (U) Large Abnormal Negative [facility] Interpretation and review of laboratory results Abnormal [facility] KETONE UA (POCT) Negative Negative mg/dL [facility] LEUKOCYTES UA (POCT) Trace Abnormal Negative [facility] NITRITE UA (POCT) Negative [facility] PH UA (POCT) 5.5 4.5 - 8.0 [facility] Protein Ql (U) >=300 Abnormal Negative mg/dL [facility] SPECIFIC GRAVITY UA (POCT) >=1.030 1.005 - 1.030 [facility] UROBILINOGEN UA (POCT) 0.2 Noemy l E.U./dL [facility] Location:[address], [facility] [id number] [place] [address] POINT OF CARE [facility] FERRITINon 08-05-2023 Ferritin [Mass/Vol] 144.0 ng/mL 14.7 - 205.1 ng/mL [facility] Ferritin [Mass/Vol]on 2023 Interpretation and review of laboratory results Normal [facility] Iron and Iron binding capaci ty panelon 08-05-2023 Interpretation and review of laboratory results Normal [facility] Iron [Mass/Vol] 49 ug/dL 41 - 186 ug/dL [facility] Iron binding capacity [Mass/Vol] 319 ug/dL 232 - 386 ug/dL [facility] Iron/TIBC [Molar ratio] 15.4 % 15.0 - 57.0 % [facility] HEMOGLOBIN A1C (POC)on 07-15 HbA1c (Bld) [Mass fraction] 9.1 % Abnormal 4.3 - 5.6 % [facility] Comment on above: Location:[address], [address] Point of care (POC) Hemoglobin A1c (HGBA1C) testing is intended to assess glucose control and provide a management tool for patients known to have diabetes and their healthcare providers. Target HGBA1C levels may depend on specific clinical circumstances. POC HGBA1C is not intended for use as a diagnostic or screening test; laboratory-based testing should be used for diagnostic purposes. The following information is supplemental and may not be applicable to specific diabetes management situations: The POC device metal grader provides a normal range of 4.2% to 6.5% for the HGBA1C POC test. However, the [place] [employer] guidelines indicate that patients with HGBA1C in the range of 5.7% to 6.4% are at increased risk for development of diabetes and that intervention by lifestyle modification may be beneficial. A HGBA1C level greater than or equal to 6.5% is considered diagnostic of diabetes, pending confirmatory testing. Use of HGBA1C testing to evaluate glucose control may not be appropriate for patients with hemoglobin variants or other conditions (e.g. anemia) that alter red blood cell lifespan. Interpretation and review of laboratory results Abnormal [facility] Absolute lymphocyte countOrd ered By: Jaquan Nelson on 07-08-2023 Lymphocytes Auto (Unsp spec) [#/Vol] 1.06 10*3/uL 0.83-4.51 [facility] Amorphous sediment detection in urine sediment by light microscopyOrdered By: Jaqaun Nelson on 07-08-2023 Amorphous sediment LM Ql (Urine sed) 1+ URATE [facility] Automated lymphocyte count a s percentage of total leukocytesOrdered By: Jaquan Nelson on 07-08-2023 Lymphocytes/100 WBC Auto (Unsp spec) 12.7 % 19-41 [facility] Basophil percentageOrdered B y: Jaquan Nelson on 07-08-2023 Basophil percentage >100 SEEN /hpf 0-5 [facility] Basophils/100 WBC (Bld) 0.5 % 0-1 [facility] Chloride [Moles/Vol] 102 mmol/L 98-107 [facility] Eosinophils/100 WBC (Bld) 0.6 % 0-5 [facility] Glucose [Mass/Vol] 294 mg/dL 74-106 [facility] Comment on above: Glucose result great er than or equal to 200 mg/dLsuggests DIABETES MELLITUS per A.D.A. criteria. Hemoglobin (Bld) [Mass/Vol] 10.4 g/dL 12.0-15.0 [facility] Monocytes/100 WBC (Bld) 8.5 % 0-10 [facility] Neutrophils (Bld) [#/Vol] 6.5 10*3/uL 2.0-7.7 [facility] Neutrophils/100 WBC (Bld) 77.5 % 47-70 [facility] Potassium [Moles/Vol] 3.7 mmol/L 3.5-5.1 [facility] Sodium [Moles/Vol] 137 mmol/L 136-145 [facility] WBC (Bld) [#/Vol] 8.4 10*3/uL 4.4-11.0 [facility] Bilirubin Test strip Ql (U)O rdered By: Jaquan Nelson on 07-08-2023 Bilirubin Ql (U) Negative Negative [facility] Determination of erythrocyte mean corpuscular volume (MCV)Ordered By: Jaquan Nelson on 07-08-2023 MCV (RBC) [Entitic vol] 86.4 fL 81-99 [facility] Erythrocyte distribution wid th ratioOrdered By: Jaquan Nelson on 07-08-2023 Erythrocyte distribution width (RBC) [Ratio] 14.3 % 11.6-14.6 [facility] Erythrocyte distribution wid th standard deviationOrdered By: Jaquan Nelson on 07-08-2023 Erythrocyte distribution width (RBC) [Entitic vol] 45.2 fL 35.1-43.9 [facility] GLUCOSE, BLOOD (POC)on 07-07 Glucose [Mass/Vol] 339 mg/dL Abnormal 74 - 99 mg/dL [facility] Hematocrit Auto (Bld) [Volum e fraction]Ordered By: Jaquan Nelson on 07-08-2023 Hematocrit (Bld) [Volume fraction] 32.3 % 37-47 [facility] Immature granulocytes/100 WB C Auto (Bld)Ordered By: Jaquan Nelson on 07-08-2023 Immature granulocytes/100 WBC (Bld) 0.200 % 0.0-0.9 [facility] Comment on above: IG% - Immature Granu locytes (promyelocytes, myelocytes and metamyelocytes) > 1% indicates that a LEFT SHIFT is Present. Ketones Test strip Ql (U)Ord ered By: Jaquan Nelson on 07-08-2023 Ketones Ql (U) Negative Negative [facility] Laboratory - Chemistry and C hemistry - challengeOrdered By: Jaquan Nelson on 07-08-2023 CO2 [Moles/Vol] 29.0 mmol/L 21.0-32.0 [facility] Urea nitrogen/Creatinine [Mass ratio] 13.5 mg/mg 10-20 [facility] Laboratory - Hematology and Cell countsOrdered By: Jaquan Nelson on 07-08-2023 MCH (RBC) [Entitic mass] 27.8 pg 27.0-32.0 [facility] MCHC (RBC) [Mass/Vol] 32.2 g/dL 32-36 [facility] Nucleated RBC/100 WBC (Bld) [Ratio] 0 % 0-5 [facility] Platelet mean volume (Bld) [Entitic vol] 10.4 fL 6.2-12.0 [facility] Platelets (Bld) [#/Vol] 240 10*3/uL 150-450 [facility] Mucus LM Ql (Urine sed)Order ed By: Jaquan Nelson on 07-08-2023 Mucus Ql (Urine sed) 0 SEEN /hpf [facility] Nitrite Test strip Ql (U)Ord ered By: Jaquan Nelson on 07-08-2023 Nitrite Ql (U) Negative Negative [facility] No Panel InformationOrdered By: Jaquan Nelson on 07-08-2023 Estimated Creatinine Clearance Calc 56.04 ml/min [facility] Estimated GFR (MDRD) Amer 64 mL/min >60 [facility] Comment on above: GFR Calc Estimated GFR (MDRD) Non-Af Amer 53 mL/min >60 [facility] Comment on above: Non- GFR Calc Urine RBC 10-25 SEEN /hpf 0-5 [facility] Protein Test strip Ql (U)Ord ered By: Jaquan Nelson on 07-08-2023 Protein Ql (U) 100 mg/dl Negative [facility] RBC Auto (Bld) [#/Vol]Ordere d By: Jaquan Nelson on 07-08-2023 RBC (Bld) [#/Vol] 3.74 10*6/uL 4.2-5.4 [facility] Serum or plasma calcium ashley urement (mass/volume)Ordered By: Jaquan Nelson on 07-08-2023 Calcium [Mass/Vol] 9.1 mg/dL 8.5-10.1 [facility] Serum or plasma creatinine m easurement (mass/volume)Ordered By: Jaquan Nelson on 07-08-2023 Creatinine [Mass/Vol] 1.11 mg/dL 0.55-1.02 [facility] Comment on above: The validity of the calculated GFR & GFRAA in patients over 70 years has not been determined. Clinical correlation is essential. Serum or plasma urea nitroge n measurement (mass/volume)Ordered By: Jaquan Nelson on 07-08-2023 Urea nitrogen [Mass/Vol] 15 mg/dL 7-18 [facility] Squamous epithelial cells de tection in urine sediment by light microscopyOrdered By: Jaquan Nelson on 07-08-2023 Epithelial cells.squamous LM Ql (Urine sed) 0-5 SEEN /hpf 5-10 [facility] Thin prep Papanicolaou smear with manual screeningOrdered By: Jaquan Nelson on 07-08-2023 Thin prep Papanicolaou smear with manual screening 6 5-15 [facility] UA DIP, URINE (POC)on 2023 BILIRUBIN UA (POCT) Negative Negative [facility] CLARITY UA (POCT) Cloudy [facility] COLOR UA (POCT) Yellow [facility] GLUCOSE UA (POCT) >=1000 Abnormal Negative mg/dL [facility] Hemoglobin Ql (U) Large Abnormal Negative [facility] KETONE UA (POCT) Negative Negative mg/dL [facility] LEUKOCYTES UA (POCT) Small Abnormal Negative [facility] NITRITE UA (POCT) Negative Negative [facility] PH UA (POCT) 5.5 4.5 - 8.0 [facility] Protein Ql (U) >=300 Abnormal Negative mg/dL [facility] SPECIFIC GRAVITY UA (POCT) 1.020 1.005 - 1.030 [facility] UROBILINOGEN UA (POCT) 0.2 E.U./dL Noemy l E.U./dL [facility] Urine blood detectionOrdered By: Jaquan Nelson on 07-08-2023 RBC Ql (U) 250 /ul Negative [facility] Urine clarityOrdered By: Cheo Nelson on 07-08-2023 Clarity (U) Cloudy Clear [facility] Urine color determinationOrd ered By: Jaquan Nelson on 07-08-2023 Color (U) Yellow Yellow [facility] Urine glucose detectionOrder ed By: Jaquan Nelson on 07-08-2023 Glucose Ql (U) 1000 mg/dl Normal [facility] Urine leukocyte esterase det ection by dipstickOrdered By: Jaquan Nelson on 07-08-2023 Leukocyte esterase Test strip Ql (U) 500 /ul Negative [facility] Urine pHOrdered By: Jaquan harden on 07-08-2023 pH (U) 6.0 [pH] 5.0 - 8.0 [facility] Urine sediment bacteria coun t by microscopy (number/high power field)Ordered By: Jaquan Nelson on 07-08-2023 Bacteria LM.HPF (Urine sed) [#/Area] 2 /[HPF] None Seen [facility] Urine specific gravity measu rementOrdered By: Jaquan Nelson on 07-08-2023 Specific gravity (U) [Rel density] 1.015 1.002-1.03 0 [facility] Urine urobilinogen measureme ntOrdered By: Jaquan Nelson on 07-08-2023 Urobilinogen Ql (U) Normal mg/dl Normal [facility] NM PET/CT SKULL-THIGH SUBSEQ UENTon 01-28-2023 [facility] Basic metabolic 2000 panelon 11-07-2022 Anion gap [Moles/Vol] 10 mmol/L 9 - 18 mmol/L [facility] Calcium [Mass/Vol] 9.6 mg/dL 8.5 - 10. 2 mg/dL [facility] Chloride [Moles/Vol] 105 mmol/L 97 - 10 5 mmol/L [facility] CO2 [Moles/Vol] 25 mmol/L 22 - 30 mmol/L [facility] Creatinine [Mass/Vol] 1.27 mg/dL High 0.58 - 0.96 mg/dL [facility] Estimated Glomerular Filtration Rate 48 mL/min/1.73m Low >=60 mL/min/1.7 3m [facility] Glucose [Mass/Vol] 140 mg/dL High 74 - 99 mg/dL [facility] Potassium [Moles/Vol] 3.8 mmol/L 3.7 - 5.1 mmol/L [facility] Sodium [Moles/Vol] 140 mmol/L 136 - 144 mmol/L [facility] Urea nitrogen [Mass/Vol] 22 mg/dL High 7 - 21 mg/dL [facility] Urinalysis complete panel (U )on 09-20-2022 Bilirubin Ql (U) Negative Negative [facility] Clarity (Unsp spec) Cloudy Abnormal Clear [facility] Color (U) Yellow Yellow [facility] Epithelial cells LM.HPF (Urine sed) [#/Area] Few Abnormal None Seen /HPF [facility] Glucose Test strip (U) [Mass/Vol] Negative Trace, Negative [facility] Hemoglobin Ql (U) 2+ Abnormal Negative, Trace [facility] Hyaline casts (Urine sed) [#/Area] 4-10 /LPF Abnormal 0 /LPF [facility] Ketones Ql (U) Negative Trace, Negative [facility] Leukocyte esterase Test strip Ql (U) 500 Ailin/uL Abnormal Negative, 25 Ailin/uL [facility] Nitrite Ql (U) Negative Negative [facility] pH (U) 5.5 [pH] 5.0 - 8.0 [facility] Protein (U) [Mass/Vol] 1+ Abnormal Trace , Negative [facility] RBC LM.HPF (Urine sed) [#/Area] 11-25 /HPF Abnormal 0-3 /HPF [facility] Specific gravity (U) [Rel density] 1.018 1.005 - 1.030 [facility] Urobilinogen Ql (U) Negative Negative [facility] WBC LM.HPF (Urine sed) [#/Area] /[HPF] Abnormal 0-5 /HPF [facility] MRI BREAST WO/W IVCON BILATE RALon 08-15-2022 [facility] ANES POSTPROC EVALon 023 ANES POSTPROC EVAL HNO ID: [id number] Author: Cliff Payton MD Service: Anesthesiology Author Type: Anesthesiologist Type: Anesthesia Postprocedure Evaluation Filed: 08/14/2022 10:02 AM Note Text: POST ANESTHESIA EVALUATION NOTE : 1960 Procedure Summary Date: 08/14/22 Room / Location: GI02 / GI Anesthesia Start: 903 Anesthesia Stop: 949 Procedure: BRONCHOSCOPY,RIGID/FLEX IBLE W/ FLUORO,W/ENDOBRONCHIAL ULTRASOUND (EBUS) GUIDED TRANSTRACHEAL/ TRANSBRONCHIAL ASPIRATION/BIOPSY,1 OR 2 MEDIASTINAL AND/OR HILAR LYMPH NODE STATIONS/STRUCTURES (Bronchus) Diagnosis: Adenopathy (Adenopathy [R59.9]) Surgeons: Kam Dangelo MD Responsible Provider: Cliff Payton MD Anesthesia Type: general ASA Status: 3 Anesthesia Type: general Airway Type: LMA Last Vitals Vitals Value Taken Time BP 106/71 08/14/22 1000 Temp 36.7 ?C (98.1 ?F) 08/14/22 0945 Pulse 72 08/14/22 1001 Resp 19 08/14/22 1001 SpO2 100 % 08/14/22 1001 Vitals shown include unvalidated device data. Post Anesthesia Patient Status Patient Evaluation: PACU. PACU/ICU Patient Condition: stable. Anticipated Disposition: phase 2 then home. Neurological Status: aware and responsive. Pulmonary Status: breathing comfortably on room air Airway Control: returned to baseline unsupported. Cardiovascular Status: stable. Pain Management: clinically adequate Postoperative Hydration: acceptable. Intraoperative Events: no significant anesthesia events Recommendation: continue current plan of care. Anesthesia Observations No Documentation SIGNATURE: Cliff Payton MD PATIENT NAME: Pat Sorto DATE: August 14, 2022 TIME: 10:02 AM CSN: [id number] [facility] ANES PRE-OPon 08-14-2022 ANES PRE-OP HNO ID: [id number] Author: Cliff Payton MD Service: Anesthesiology Author Type: Anesthesiologist Type: Anesthesia Preprocedure Evaluation Filed: 08/14/2022 8:50 AM Note Text: ANESTHESIOLOGY DAY OF SURGERY NOTE : 1960 Procedure Information Date/Time: 08/14/22 0900 Procedure: BRONCHOSCOPY,RIGID/FLEX IBLE W/ FLUORO,W/ENDOBRONCHIAL ULTRASOUND (EBUS) GUIDED TRANSTRACHEAL/ TRANSBRONCHIAL ASPIRATION/BIOPSY,1 OR 2 MEDIASTINAL AND/OR HILAR LYMPH NODE STATIONS/STRUCTURES (Bronchus) Location: [facility] GI02 / [facility] Surgeons: Kam Dangelo MD Estimated body mass index is 32.77 kg/m? as calculated from the following: Height as of 08/13/22: 167.6 cm (5' 6). Weight as of 08/13/22: 92.1 kg (203 lb). 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 Tracheostomy tube not present Mallampati: II. TM distance: >3 FB. Neck ROM: full ROM without neurological symptoms. Mouth opening: adequate. Short neck: no. Thick neck: no DENTAL Dental findings: teeth intact. Additional exam findings: yes. CARDIOVASCULAR Normal cardiovascular observations. PULMONARY Normal pulmonary observations. Breath sounds clear to auscultation. II - ANESTHESIA PLAN ASA Score: 3 Anesthetic Plan: general Airway type: LMA The patient is not a current smoker. NPO Status: adequate Beta Anahy Monitoring Plan Monitoring plan: standard ASA. Post Procedure Analgesic Plan Postoperative analgesic plan: multimodal analgesia. Informed Consent Anesthetic risks, benefits, alternatives, personnel and consent discussed: yes. Patient / Responsible Alliance Party agrees to proceed: yes Patient / Surrogate agrees to blood products: blood products not planned DNR status not reviewed with patient and/or family prior to surgery. Significant changes in the patient condition since the History and Physical, not otherwise documented in primary service progress note: no. Potential Anesthesia issues that may suggest increased risk of complications or contraindication to planned procedure: none. No vitals data found for the desired time range. No current facility-administered medications on file as of 08/14/2022. Outpatient Medications as of 08/14/2022 Medication Sig - traZODone (DESYREL) 50 mg tablet Take 1 tablet by mouth daily at bedtime. - DULoxetine (CYMBALTA) 30 mg capsule Take 1 capsule by mouth once daily. - lisinopril-hydroCHLOROt hiazide (PRINZIDE,ZESTORETIC) 20-12.5 mg per tablet TAKE 1 TABLET DAILY - pantoprazole DR (PROTONIX) 40 mg tablet Take 40 mg by mouth daily before breakfast. - ascorbic acid, vitamin C, (VITAMIN C) 500 mg tablet Take 500 mg by mouth once daily. - alpha tocopheryl acetate (VITAMIN E) 400 unit capsule Take 400 Units by mouth once daily. - cyanocobalamin (VITAMIN B-12) 1,000 mcg tab Take 1,000 mcg by mouth once daily. - VITAMIN D 50,000 unit capsule 1 capsule one time a week. - Ursodiol 500 mg tablet Take 1.5 tablets by mouth twice daily. - CALCIUM CARBONATE (CALCIUM 500 ORAL) Take 1 tablet by mouth once daily. I have interviewed and examined the patient. I have reviewed the medical record and/or the pre-anesthesia evaluation, pertinent labs, and test results. This contains updated information obtained within 48 hours of Surgery/Procedure. SIGNATURE: Cliff Payton MD PATIENT NAME: Pat Sorto DATE: August 14, 2022 TIME: 8:50 AM CSN: [id number] [facility] NON-GYNon 3 ADEQUACY INTERPRETATION Normal [facility] Comment on above: Order Comment: Speci men Type: SPECIMEN OBTAINED BY ASPIRATION Ordering Facility: [facility] Address: [address] [place] [address] Result Comment: A: # 1 Positive for malignant cells, adenocarcinoma Dr. Rey / Margie Arzola Each letter in the above intra-procedural assessment refers to a unique site. The specific site is indicated in the final diagnosis portion of the report. Each number in this assessment references a discrete evaluation episode. Intra-procedural assessment performed at [facility], [address] [place] [address] Performed By: #### C YTONON #### [facility] CLIA [id number] [address] [place] [address] LAB CLIA [id number] [address] [place] [address] CASE REPORT Normal [facility] Comment on above: Order Comment: Speci men Type: SPECIMEN OBTAINED BY ASPIRATION Ordering Facility: [facility] Address: [address] [place] [address] Result Comment: [facility] Cytology Report Case: [id number] Authorizing Provider: Kam Dangelo MD Collected: 08/14/2022 09:11 AM Ordering Location: [facility] Received: 08/14/2022 10:05 AM Endoscopy - ENDO Pathologist: Adam Rey MD Specimen: EBUS TRANSBRONCHIAL FINE NEEDLE ASPIRATE, LYMPH NODE, 4L Performed By: #### C YTONON #### [facility] CLIA [id number] [address] [place] [address] LAB CLIA [id number] [facility] [address] CLINICAL HISTORY Normal [facility] Comment on above: Order Comment: Speci men Type: SPECIMEN OBTAINED BY ASPIRATION Ordering Facility: [facility] Address: [address] [place] [address] Result Comment: Pre- op diagnosis: Adenopathy [R59.9] Performed By: #### C YTONON #### [facility] CLIA [id number] [address] [id number] [facility] CLIA [id number] [address] DIAGNOSIS COMMENT Normal [facility] Comment on above: Order Comment: Speci men Type: SPECIMEN OBTAINED BY ASPIRATION Ordering Facility: [facility] Address: [address] [address] Result Comment: The following immunohistochemical stains with appropriate controls were performed on the cell block and the results support the interpretation above: GATA3 and TRPS1 - positive. See also related surgical pathology report [id number]. Laboratory Developed Test (LDT) Disclaimer (GATA3): Performance characteristics of immunohistochemical, immunofluorescent and chromogenic in-situ hybridization tests have been determined by the performing laboratory within [facility]???s Subhash Hanson [facility] Pathology and Laboratory Medicine [place] ([facility], [facility], [facility], , [facility], or [facility]) in a manner consistent with CLIA requirements. One or more of these tests have not been cleared or approved by the FDA. [facility] is regulated under CLIA as qualified to perform high-complexity testing. These tests are used for clinical purposes. They should not be regarded as investigational or for research. Positive and negative controls stain appropriately. No validation on specimen type (TRPS1): Positive and negative controls stain appropriately. This test has not been validated for the specimen type submitted (Cellient cell block). The test result should be interpreted with caution and in the context of the patient's clinical condition. Performed By: #### C YTONON #### [facility] [place] [id number] [id number] [facility] CLIA [id number] [address] FINAL DIAGNOSIS Normal [facility] Comment on above: Order Comment: Speci men Type: SPECIMEN OBTAINED BY ASPIRATION Ordering Facility: [facility] Address: [address] [place] [address] Result Comment: A - EBUS TRANSBRONCHIAL FINE NEEDLE ASPIRATE, LYMPH NODE - 4L Positive for malignant cells. Metastatic adenocarcinoma consistent with breast primary (see comment). The following cell blocks were associated with this case: A1 Cell Block, Alcohol Fixed Performed By: #### C YTONON #### [facility] CLIA [id number] [place] [address] LAB CLIA [id number] [address] OF [facility] FINAL PERFORMING LAB Normal [facility] Comment on above: Order Comment: Speci men Type: SPECIMEN OBTAINED BY ASPIRATION Ordering Facility: [facility] Address: [address] [address] Result Comment: Tech nical component, six pack packer screening performed at [facility], [id number] [place] [address] CLIA# [id number] Diagnostic interpretation performed at [facility], [address] [place] [address] CLIA# [id number] Body Shop Mechanic: Adam Rey M.D. Performed By: #### C YTONON #### [facility] CLIA [id number] [address] [place] [address] LAB CLIA [id number] [address] GROSS DESCRIPTION Normal [facility] Comment on above: Order Comment: Speci men Type: SPECIMEN OBTAINED BY ASPIRATION Ordering Facility: [facility] Address: [address] [address] Result Comment: A. E BUS TRANSBRONCHIAL FINE NEEDLE ASPIRATE, LYMPH NODE 30 cc clear light pink CytoLyt with scant particles. ThinPrep and Cell Block prepared and 2 smears (1 air dried and 1 fixed). Performed By: #### C YTONON #### [facility] CLIA [id number] LAB CLIA [id number] [address] [place] [address] ORDER COMMENT [facility] Comment on above: Order Comment: Speci men Type: SPECIMEN OBTAINED BY ASPIRATION Ordering Facility: [facility] Address: [address] [place] [address] Result Comment: Pre- op diagnosis: Adenopathy [R59.9] Performed By: #### C YTONON #### [facility] CLIA [id number] LAB CLIA [id number] [address] HER2 (4B5) BY IHCon 08-15-19 HER2 (4B5) BY IHC [facility] Comment on above: Order Comment: Speci men Type: TISSUE SPECIMEN Ordering Facility: [facility] Address: [address] [place] [address] Result Comment: [facility]anne [facility] [employer] RESULTS: Estrogen Receptor (ER) Positive 91-100% Stain intensity: strong Internal controls: absent External controls: appropriately stained Progesterone Receptor (SC) Positive 91-100% Stain intensity: strong Internal controls: absent External controls: appropriately stained HER2 (ERBB2) IMMUNOHISTOCHEMISTRY ASSAY Interpretation: EQUIVOCAL for HER2 (ERBB2) Expression Score: 2+ Percentage of cells with uniform intense complete membrane staining: Approaching 10% (reported for 2+ and 3+ scores only) Block Number: A1 Tissue Analyzed: Metastatic carcinoma Tumor Grade: n/a Specimen fixative: 10% neutral buffered formalin Length of fixation: >6 and <72 hours Cold ischemia time: not provided Latest ASCO/CAP guidelines for fixation met: indeterminate Reference Range for Hormone Receptors: Staining for SC of greater than or equal to 1% of the tumor cells is considered positive. Staining for ER of 1-10% of the tumor cells is considered low positive. Staining for ER of greater than 10% of the tumor cells is considered positive. Staining for ER or SC of less than 1% is considered negative. Reference Ranges for HER2 (ERBB2) immunohistochemistry: Positive (3+): Complete, intense circumferential membrane staining in >10% of tumor cells Equivocal (2+): Weak to moderate complete membrane staining observed in >10% of tumor cells Negative (1+): Incomplete, faint membrane staining in >10% of tumor cells Negative (0): No staining or incomplete faint membrane staining in Interpretation comments: Consideration of follow-up testing for HER2 (ERBB2) status by fluorescence in situ hybridization (FISH) for all equivocal (2+) results is recommended and will be ordered as a reflex test if FISH was not a testing methodology already employed. Note for ER low results For malignancy with a low level (1%-10%) of ER expression by immunohistochemistry, there are limited data on the overall benefit of endocrine therapies for a patient with low level (1%-10%) ER expression, but they currently suggest possible benefit, so patients are considered eligible for endocrine treatment. There are data that indicate invasive cancers with these results are heterogeneous in both behavior and biology and often have gene expression profiles more similar to ER-negative cancers. Estrogen and Progesterone Receptor Testing in Breast Cancer: [place] Society of Clinical Oncology/College of [place] Pathologists Guideline Update. RACHELLE Arauz, Dennis FISH et al., Arch Pathol Lab Med. 2019Apr 20. METHODS: Estrogen Receptor: Food and Drug Administration (FDA) cleared[place] Primary Antibody: SP1 Progesterone Receptor: FDA cleared: [employer], [place], [place] Primary Antibody: IE2 HER2 (ERBB2) by IHC: FDA cleared: [employer], [place], [place] Primary Antibody:4B5 The hormone receptor tests were performed and reported in accordance with the guidelines approved by the [place] Society of Clinical Oncologists and the College of [place] Pathologists. Regla BUSH et al. Estrogen and Progesterone Receptor Testing in Breast Cancer: [place] Society of Clinical Oncologists and the College of [place] Pathologists Guideline Update. Arch Pathol Lab Med. 2019;144(5):545-563. PMID: [id number]. The hormone receptor assays have been internally validated on decalcified tissues (for [facility] only). Estrogen and progesterone receptor results are valid if tissue was processed according to ASCO/CAP guidelines. Antibody and Detection System: [place]'s Pathway anti-HER2 rabbit monoclonal antibody (clone 4B5), [place] Confirm anti-estrogen receptor rabbit monoclonal antibody (clone SP1) and [place] anti-progesterone receptor rabbit monoclonal antibody (clone IE2) detected with the RSB SPINE UltraView Univeral DAB Detection Kit (indirect biotin-free detection), [employer], [place], [place]. Control Slides: Cell line controls with high, equivocal, low and negative HER2 protein expression, along with known positive control tissue as well as the patient's tissue are evaluated for HER2 expression. A separate slide of the patient's tissue is similarly processed without antibody (negative control); slides were reviewed and showed appropriate staining. The HER2 immunohistochemistry assay was developed, validated, scored, and reported in accordance with the guidelines approved by the [place] Society of Clinical Oncologists and the College of [place] Pathologists. Rochelle FRITZ et al. Arch Pathol Lab Med. 2018;1379(9) The HER2 assay has not been validated on decalcified tissues. Results should be interpreted with caution given the possibility of false negative results on decalcified specimens. Laboratory Developed Test (LDT) Disclaimer: Performance characteristics of immunohistochemical, immunofluorescent and chromogenic in-situ hybridization tests have been determined by the performing laboratory withi (more content not included)... Performed By: #### S , [id number] #### [facility] CLIA [id number] [address] [place] [address] OF [facility] NURSING PROGon 08-14-2022 NURSING PROG HNO ID: [id number] Author: Daily Fernández, RN Service: ? Author Type: Registered Nurse Type: Nursing Progress Note Filed: 08/14/2022 8:49 AM Note Text: PATIENT EDUCATION TOPIC: PROCEDURE / SURGERY: Procedure/Surgery: ebus PATIENT NAME: Pat Sorto PATIENT LOCATION: [facility] ENDO POOL/[facility] ENDO POOL READINESS TO LEARN COGNITIVE ABILITY: Alert and oriented MOTIVATION TO LEARN: Interested FAMILY SUPPORT: None - Unavailable/disinterest ed INSTRUCTION PROVIDED TO: Patient PATIENT LEARNS BEST BY: Individual Instruction FACTORS AFFECTING LEARNING: None PHYSICAL LIMITATIONS AFFECTING LEARNING: None LEARNING RESPONSE DIAGNOSIS: ADULT: ebus PATIENT/FAMILY RESPONSE: Information received as demonstrated by interest and questions METHOD OF INSTRUCTION: Individual instruction FOLLOW-UP PLAN: Complete - No need for follow-up INSTRUCTIONAL AIDS USED: NA SUPPLEMENTAL MATERIAL PROVIDED TO PATIENT: None REFERRAL (RECOMMENDATION): None Electronically Signed By: Daily Fernández Other: ebus [facility] SURGICAL PATHOLOGYon 023 ADDENDUM 1: [facility] Comment on above: Order Comment: Speci men Type: TISSUE SPECIMEN Ordering Facility: [facility] Address: [address] [address] Result Comment: The neoplastic cells are positive for GATA3, TRPS1 and ER, and negative for TTF-1, consistent with a breast primary. ER/SC/HER2 will be reported in an addendum. Addendum electronically signed by Toño Cabrera MD on 08/16/2022 at 10:12 AM Performed By: #### S , [id number] #### [facility] CLIA [id number] [address] [place] [address] CASE REPORT Normal [facility] Comment on above: Order Comment: Speci men Type: TISSUE SPECIMEN Ordering Facility: [facility] Address: [address] [place] [address] Result Comment: Surg [facility] Pathology Report Case: [id number] Authorizing Provider: Kam Dangelo MD Collected: 08/14/2022 09:27 AM Ordering Location: [facility] Received: 08/14/2022 11:28 AM Endoscopy - ENDO Pathologist: Toño Cabrera MD Specimen: LUNG BIOPSY LEFT, station 4L core biopsy Performed By: #### S , [id number] #### [facility] CLIA [id number] [address] [place] [address] CLINICAL HISTORY Normal [facility] Comment on above: Order Comment: Speci men Type: TISSUE SPECIMEN Ordering Facility: [facility] Address: [address] [place] [address] Result Comment: Pre- op diagnosis: Adenopathy [R59.9] Performed By: #### S , [id number] #### [facility] CLIA [id number] [address] [place] [address] OF HEATHER DIAGNOSIS COMMENT Immunohistochemical stains for site of origin have been requested and will be reported in an addendum. [facility] Comment on above: Order Comment: Speci men Type: TISSUE SPECIMEN Ordering Facility: [facility] Address: [address] [place] [address] Performed By: #### S , [id number] #### [facility] CLIA [id number] [address] [place] [address] FINAL DIAGNOSIS Normal [facility] Comment on above: Order Comment: Speci men Type: TISSUE SPECIMEN Ordering Facility: [facility] Address: [address] [place] [address] Result Comment: A. L ymph node, station 4L core biopsy: - Metastatic adenocarcinoma (See comment). Performed By: #### S , [id number] #### [facility] CLIA [id number] [address] [place] [address] FINAL PERFORMING LAB Normal [facility] Comment on above: Order Comment: Speci men Type: TISSUE SPECIMEN Ordering Facility: [facility] Address: [address] [place] [address] Result Comment: Diag nostic interpretation performed at [facility], [address] [place] [address] CLIA# [id number] Body Shop Mechanic: Gonzales Lazaro M.D. Performed By: #### S , [id number] #### [facility] CLIA [id number] [address] [place] [address] GROSS DESCRIPTION Normal [facility] Comment on above: Order Comment: Speci men Type: TISSUE SPECIMEN Ordering Facility: [facility] Address: [address] [place] [address] Result Comment: A. L HOSSEIN BIOPSY LEFT Received in formalin are multiple segments of cylindrical tissue aggregating to 2.0 x 1.1 x 0.2 cm, red-brown and of a soft and friable consistency. Totally submitted in formalin in one cassette. Gross examination performed at [facility], [address] [place] [address] JS 08/14/2022 4:28 PM Performed By: #### S , [id number] #### [facility] CLIA [id number] [address] STATES OF [facility] CNOVon 08-13-2022 CNOV Office Visit (PUFAMO ) PAT SORTO ([id number]) 1960 F [facility] Date Time Provider Department 08/13/22 10:40 AM KAM DANGELO PUFAANTOINETTE During your visit today, we recorded the following information about you: Pulse Blood pressure Weight Height 70/minute 144/87 92.1 kg 1.676 m Kam Dangelo MD 08/13/2022 11:14 AM Signed Interventional Pulmonary Consultation Date of Service: August 13, 2022 Patient: Pat Sorto Medical Record: [id number] Primary Care Physician: Jacinta Rivas MD Referring Physician: Serena Carrasco DO History of Present Illness Pat Sorto is a 62 year old female who has a past medical history of left Breast CA, HTN, and Primary biliary cirrhosis who presents for PET avid lung nodules, referred by Dr. Carrasco. My findings and recommendations will be communicated with the referring physician by way of shared electronic medical record. Patient has a history of breast cancer, with recent skin recurrence, which led to PET scan. PET showed multiple nodes in chest with PET avidity. Patient feeling well otherwise. No cough, dyspnea, chest pain. For breast cancer, treatment included neoadj AC/Taxol, followed by mastectomy with positive nodes, followed by XRT, followed by anastrozole (which was stopped once the skin met was found). Review of Systems GENERAL: No weight loss, malaise or fevers., SEE HPI NECK: Negative for lumps, goiter, pain and significant neck swelling RESPIRATORY: Negative for cough, wheezing or shortness of breath. CARDIOVASCULAR: Negative for chest pain, leg swelling or palpitations. GI: Negative for abdominal discomfort, blood in stools or black stools or change in bowel habits MUSCULOSKELETAL: Negative for joint pain or swelling, back pain or muscle pain. HEMATOLOGY/LYMPHOLOGY Negative for prolonged bleeding, bruising easily or swollen nodes. ENDOCRINE: Negative for cold or heat intolerance, polyuria, polydipsia and goiter. NEURO: No history of headaches, syncope, paralysis, seizures or tremors All other reviewed and negative other than HPI. 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 Husam Hart in [place] Past Surgical History PAST SURGICAL HISTORY Procedure Laterality Date ARTHRP ACETBLR/PROX FEM PROSTC AGRFT/ALGRFT Right 03/20/2019 Hip replacement, total ARTHRP KNE CONDYLEANDPLATU MEDIALANDLAT COMPARTMENTS Left 02/2016 BIOPSY BREAST OPEN INCISIONAL Left 2007 [facility] benign pathology per patient BREAST RECONSTRUCTION Left 2019 fat graft/implant exchange DELIVERY ONLY 1996,1993 , low transverse MASTECTOMY HX Left 2017 AND with immediate reconstruction Family History FAMILY HISTORY Problem Relation Age of Onset Diabetes Mother Heart disease Mother Diabetes Father Hypertension Sister Hypertension Brother twin Hearing Loss Maternal Grandmother Heart disease Maternal Grandmother other (Lung Cancer) Maternal Grandfather smoker Diabetes Paternal Grandmother other (Lung Cancer) Paternal Grandfather smoker No Known Problems Son No Known Problems Son Social Historyy Social History Tobacco Use Smoking status: Never Smokeless tobacco: Never Vaping Use Vaping Use: Never used Substance Use Topics Alcohol use: Yes Comment: occasional Drug use: No Current Medications Current Outpatient Medications Medication Instructions ascorbic acid (vitamin C) (VITAMIN C) 500 mg, ORAL, DAILY CALCIUM CARBONATE (CALCIUM 500 ORAL) 1 tablet, ORAL, DAILY cyanocobalamin (VITAMIN B-12) 1,000 mcg, ORAL, DAILY DULoxetine (CYMBALTA) 30 mg, ORAL, DAILY lisinopril-hydroCHLOROt hiazide (PRINZIDE,ZESTORETIC) 20-12.5 mg per tablet TAKE [address] (PROTONIX) 40 mg, ORAL, DAILY BEFORE BREAKFAST traZODone (DESYREL) 50 mg, ORAL, AT BEDTIME Ursodiol 500 mg tablet 1.5 tablets, ORAL, 2 TIMES DAILY VITAMIN D 50,000 unit capsule 1 capsule, 1 TIME WEEKLY Vitamin E (dl, acetate) (VITAMIN E) 400 Units, ORAL, DAILY Imaging See below. Physical Exam VS BP 144/87 Pulse 70 Ht 5' 6 (1.68m) Wt 203 lb (92.1kg) SpO2 98% BMI 32.78 kg/(m2). GENERAL APPEARANCE: Patient in no acute distress. SKIN: No rashes or lesions. EYES: PERRLA, EOMI,, conjunctivae clear. OROPHARYNX: Lips, mucosa, and tongue normal. Teeth and gums normal. Oropharynx normal. NECK: Supple, no lymphadenopathy, no JVD. BACK: No CVA tenderness, no spinal tenderness LUNGS: Normal breath sounds, clear to auscultation, no wheezes, or crackles. HEART: Normal PMI, Regular rate/rhythm, normal heart sounds, and no murmurs. ABDOMEN: S (more content not included)... Normal [facility] HISTORY PHYSICALon HISTORY PHYSICAL HNO ID: [id number] Author: Kam Dangelo MD Service: ? Author Type: Physician Type: HANDP Filed: 08/13/2022 11:14 AM Note Text: Interventional Pulmonary Consultation Date of Service: August 13, 2022 Patient: Pat Sorto Medical Record: [id number] Primary Care Physician: Jacinta Rivas MD Referring Physician: Serena Carrasco DO History of Present Illness Pat Sorto is a 62 year old female who has a past medical history of left Breast CA, HTN, and Primary biliary cirrhosis who presents for PET avid lung nodules, referred by Dr. Carrasco. My findings and recommendations will be communicated with the referring physician by way of shared electronic medical record. Patient has a history of breast cancer, with recent skin recurrence, which led to PET scan. PET showed multiple nodes in chest with PET avidity. Patient feeling well otherwise. No cough, dyspnea, chest pain. For breast cancer, treatment included neoadj AC/Taxol, followed by mastectomy with positive nodes, followed by XRT, followed by anastrozole (which was stopped once the skin met was found). Review of Systems GENERAL: No weight loss, malaise or fevers., SEE HPI NECK: Negative for lumps, goiter, pain and significant neck swelling RESPIRATORY: Negative for cough, wheezing or shortness of breath. CARDIOVASCULAR: Negative for chest pain, leg swelling or palpitations. GI: Negative for abdominal discomfort, blood in stools or black stools or change in bowel habits MUSCULOSKELETAL: Negative for joint pain or swelling, back pain or muscle pain. HEMATOLOGY/LYMPHOLOGY Negative for prolonged bleeding, bruising easily or swollen nodes. ENDOCRINE: Negative for cold or heat intolerance, polyuria, polydipsia and goiter. NEURO: No history of headaches, syncope, paralysis, seizures or tremors All other reviewed and negative other than HPI. 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 Husam Hart in [place] Past Surgical History PAST SURGICAL HISTORY Procedure Laterality Date ARTHRP ACETBLR/PROX FEM PROSTC AGRFT/ALGRFT Right 03/20/2019 Hip replacement, total ARTHRP KNE CONDYLEANDPLATU MEDIALANDLAT COMPARTMENTS Left 02/2016 BIOPSY BREAST OPEN INCISIONAL Left 2007 [facility] benign pathology per patient BREAST RECONSTRUCTION Left 2019 fat graft/implant exchange DELIVERY ONLY 1996,1993 , low transverse MASTECTOMY HX Left 2017 AND with immediate reconstruction Family History FAMILY HISTORY Problem Relation Age of Onset Diabetes Mother Heart disease Mother Diabetes Father Hypertension Sister Hypertension Brother twin Hearing Loss Maternal Grandmother Heart disease Maternal Grandmother other (Lung Cancer) Maternal Grandfather smoker Diabetes Paternal Grandmother other (Lung Cancer) Paternal Grandfather smoker No Known Problems Son No Known Problems Son Social Historyy Social History Tobacco Use Smoking status: Never Smokeless tobacco: Never Vaping Use Vaping Use: Never used Substance Use Topics Alcohol use: Yes Comment: occasional Drug use: No Current Medications Current Outpatient Medications Medication Instructions ascorbic acid (vitamin C) (VITAMIN C) 500 mg, ORAL, DAILY CALCIUM CARBONATE (CALCIUM 500 ORAL) 1 tablet, ORAL, DAILY cyanocobalamin (VITAMIN B-12) 1,000 mcg, ORAL, DAILY DULoxetine (CYMBALTA) 30 mg, ORAL, DAILY lisinopril-hydroCHLOROt hiazide (PRINZIDE,ZESTORETIC) 20-12.5 mg per tablet TAKE [address] (PROTONIX) 40 mg, ORAL, DAILY BEFORE BREAKFAST traZODone (DESYREL) 50 mg, ORAL, AT BEDTIME Ursodiol 500 mg tablet 1.5 tablets, ORAL, 2 TIMES DAILY VITAMIN D 50,000 unit capsule 1 capsule, 1 TIME WEEKLY Vitamin E (dl, acetate) (VITAMIN E) 400 Units, ORAL, DAILY Imaging See below. Physical Exam VS BP 144/87 Pulse 70 Ht 5' 6 (1.68m) Wt 203 lb (92.1kg) SpO2 98% BMI 32.78 kg/(m2). GENERAL APPEARANCE: Patient in no acute distress. SKIN: No rashes or lesions. EYES: PERRLA, EOMI,, conjunctivae clear. OROPHARYNX: Lips, mucosa, and tongue normal. Teeth and gums normal. Oropharynx normal. NECK: Supple, no lymphadenopathy, no JVD. BACK: No CVA tenderness, no spinal tenderness LUNGS: Normal breath sounds, clear to auscultation, no wheezes, or crackles. HEART: Normal PMI, Regular rate/rhythm, normal heart sounds, and no murmurs. ABDOMEN: Soft, non tender, no palpable masses, normal bowel sounds, no abdominal bruits, No hepatosplenomegaly. EXTREMITIES: No edema or tenderness NEURO: Awake, alert and oriented x3, no involuntary motions. Assessment AND Plan Adenopathy. I personally reviewed the CT-PET (more content not included)... Normal [facility] US BREAST LTD LEFTon 023 [facility] XR Pelvis APon 03-26-2022 * * *Final Report* * * DATE OF EXAM: Mar 26 2022 9:26AM LALO 5239 - XR PELVIS 1V AP / PROCEDURE REASON: M25.551-Right hip pain * * * * Physician Interpretation * * * * PROCEDURE: Pelvis INDICATION: Right hip pain .pain TECHNIQUE: XR PELVIS 1V AP COMPARISON: 03/15/2020 FINDINGS: The right total hip arthroplasty remains in satisfactory position without evidence for loosening. Moderate to advanced left hip osteoarthrosis, showing interval progression. No fracture. [facility] Provider, Krista Welsh [facility] - 03/26/2022 * * *Final Report* * * DATE OF EXAM: Mar 26 2022 9:26AM LALO 5239 - XR PELVIS 1V AP / PROCEDURE REASON: M25.551-Right hip pain * * * * Physician Interpretation * * * * PROCEDURE: Pelvis INDICATION: Right hip pain .pain TECHNIQUE: XR PELVIS 1V AP COMPARISON: 03/15/2020 FINDINGS: The right total hip arthroplasty remains in satisfactory position without evidence for loosening. Moderate to advanced left hip osteoarthrosis, showing interval progression. No fracture. IMPRESSION IMPRESSION: 1. Stable right RED 2. Progressive advanced left hip osteoarthrosis Script Worker: PSCB Transcribe Date/Time: Mar 26 2022 2:12P Dictated by : WENDY MITCHELL MD This examination was interpreted and the report reviewed and electronically signed by: WENDY MITCHELL MD on Mar 26 2022 2:12PM EST [facility] Radiology Study observation (narrative) [facility] XR Pelvis APOrdered By: [facility] Provider on 03-26-2022 [facility] HEMOGLOBIN A1C (POC)on 02-19 HbA1c (Bld) [Mass fraction] 5.9 % 4.2 - 5.6 % [facility] UA DIP, URINE (POC)on 2021 BILIRUBIN UA (POCT) Negative Negative Jaylon [facility] CLARITY UA (POCT) Cloudy [facility] COLOR UA (POCT) Yellow [facility] GLUCOSE UA (POCT) Negative Negative mg/dL [facility] HEMOGLOBIN/BLOOD UA (POCT) Trace-intact Abnormal Negative [facility] KETONE UA (POCT) Negative Negative mg/dL [facility] LEUKOCYTES UA (POCT) Large Abnormal Negative [facility] NITRITE UA (POCT) Positive Abnormal Negative [facility] PH UA (POCT) 5.5 4.5 - 8.0 [facility] Protein Ql (U) Trace Abnormal Negative mg/dL [facility] SPECIFIC GRAVITY UA (POCT) 1.025 1.005 - 1.030 [facility] UROBILINOGEN UA (POCT) 0.2 E.U./dL Noemy l E.U./dL [facility] UA DIP, URINE (POC)on 2021 BILIRUBIN UA (POCT) Negative Negative Jaylon [facility] CLARITY UA (POCT) Cloudy [facility] COLOR UA (POCT) Yellow [facility] GLUCOSE UA (POCT) Negative Negative mg/dL [facility] HEMOGLOBIN/BLOOD UA (POCT) Small Abnormal Negative [facility] KETONE UA (POCT) Negative Negative mg/dL [facility] LEUKOCYTES UA (POCT) Moderate Abnormal Negative [facility]) Positive Abnormal Negative [facility] PH UA (POCT) 5.0 4.5 - 8.0 [facility] Protein Ql (U) 30 mg/dL Abnormal Negative mg/dL [facility] SPECIFIC GRAVITY UA (POCT) 1.020 1.005 - 1.030 [facility] UROBILINOGEN UA (POCT) 0.2 E.U./dL Noemy l E.U./dL [facility] XR Chest PA and Lateralon IMPRESSION: No acute radiographic abnormality. Script Worker: PSCB Transcribe Date/Time: Feb 13 2021 4:51P Dictated by : CHRISTIAN MA MD This examination was interpreted and the report reviewed and electronically signed by: CHRISTIAN MA MD on Feb 13 2021 4:54PM [facility] DIVISION OF RADIOLOGY * * *Final Report* * * DATE OF EXAM: Feb 13 2021 4:28PM WOX 5291 - XR CHEST 2V FRONTAL/LAT / PROCEDURE REASON: Cough * * * * Physician Interpretation * * * * EXAMINATION: CHEST RADIOGRAPH (2 VIEW FRONTAL & LATERAL) CLINICAL HISTORY: Cough MQ: XC2_6 EXAM DATE/TIME: 02/13/2021 4:28 PM COMPARISON: Chest x-ray 01/03/2021 RESULT: Lines, tubes, and devices: None. Lungs and pleura: No consolidation. No lung mass. No pleural effusion. No pneumothorax. Cardiomediastinal silhouette: Normal cardiomediastinal silhouette. Bones and soft tissues: Unremarkable. DIVISION OF RADIOLOGY Provider, [facility] - 02/13/2021 * * *Final Report* * * DATE OF EXAM: Feb 13 2021 4:28PM WOX 5291 - XR CHEST 2V FRONTAL/LAT / PROCEDURE REASON: Cough * * * * Physician Interpretation * * * * EXAMINATION: CHEST RADIOGRAPH (2 VIEW FRONTAL & LATERAL) CLINICAL HISTORY: Cough MQ: XC2_6 EXAM DATE/TIME: 02/13/2021 4:28 PM COMPARISON: Chest x-ray 01/03/2021 RESULT: Lines, tubes, and devices: None. Lungs and pleura: No consolidation. No lung mass. No pleural effusion. No pneumothorax. Cardiomediastinal silhouette: Normal cardiomediastinal silhouette. Bones and soft tissues: Unremarkable. IMPRESSION IMPRESSION: No acute radiographic abnormality. Script Worker: PSCB Transcribe Date/Time: Feb 13 2021 4:51P Dictated by : CHRISTIAN MA MD This examination was interpreted and the report reviewed and electronically signed by: CHRISTIAN MA MD on Feb 13 2021 4:54PM EST [facility] Radiology Study observation (narrative) [facility] XR Chest PA and LateralOrder ed By: [facility] Provider on 02-13-2021 [facility] XR Chest PA and Lateralon IMPRESSION: No acute radiographic abnormality. Script Worker: PSCB Transcribe Date/Time: Jan 03 2021 3:52P Dictated by : RODRÍGUEZ MAGUIRE MD This examination was interpreted and the report reviewed and electronically signed by: RODRÍGUEZ MAGUIRE MD on Jan 03 2021 3:52PM EST DIVISION OF RADIOLOGY * * *Final Report* * * DATE OF EXAM: Jan 03 2021 3:49PM WOX 5291 - XR CHEST 2V FRONTAL/LAT / PROCEDURE REASON: Cough * * * * Physician Interpretation * * * * EXAMINATION: CHEST RADIOGRAPH (2 VIEW FRONTAL & LATERAL) CLINICAL HISTORY: Cough MQ: XC2_6 EXAM DATE/TIME: 01/03/2021 3:49 PM COMPARISON: No relevant prior studies available. RESULT: Lines, tubes, and devices: None. Lungs and pleura: No consolidation. No lung mass. No pleural effusion. No pneumothorax. Cardiomediastinal silhouette: Normal cardiomediastinal silhouette. Bones and soft tissues: The spine shows mild degenerative changes. [facility] * * *Final Report* * * DATE OF EXAM: Jan 03 2021 3:49PM WOX 5291 - XR CHEST 2V FRONTAL/LAT / PROCEDURE REASON: Cough * * * * Physician Interpretation * * * * EXAMINATION: CHEST RADIOGRAPH (2 VIEW FRONTAL & LATERAL) CLINICAL HISTORY: Cough MQ: XC2_6 EXAM DATE/TIME: 01/03/2021 3:49 PM COMPARISON: No relevant prior studies available. RESULT: Lines, tubes, and devices: None. Lungs and pleura: No consolidation. No lung mass. No pleural effusion. No pneumothorax. Cardiomediastinal silhouette: Normal cardiomediastinal silhouette. Bones and soft tissues: The spine shows mild degenerative changes. IMPRESSION IMPRESSION: No acute radiographic abnormality. Script Worker: MARTÍNEZ Transcribe Date/Time: Jan 03 2021 3:52P Dictated by : RODRÍGUEZ MAGUIRE MD This examination was interpreted and the report reviewed and electronically signed by: RODRÍGUEZ MAGUIRE MD on Jan 03 2021 3:52PM EST [facility] Radiology Study observation (narrative) [facility] XR Chest PA and LateralOrder ed By: Ccf Provider on 01-03-2021 [facility] US ELASTOGRAPHY LIVER W/ABD LTDon 08-12-2019 US ELASTOGRAPHY LIVER W/ABD LTD ORIGINAL Ultrasound RIGHT upper quadrant and Hepatic elastography CLINICAL STATEMENT:primary biliary cirrhosis PPE-gloves,mask,goggles , COMPARISON: None FINDINGS: The gallbladder is moderately distended with multiple calculi. There is no abnormal gallbladder wall thickening. Negative sonographic Garcia sign.. There is no intra or extrahepatic bile duct dilatation. The common duct is 4 mm at the brandy hepatis. The liver is normal in size and echogenicity. No obvious nodularity of the liver margins. No focal lesion. The pancreas as visualized is normal, small lesions are not excludable. No ascites is seen in the RIGHT upper quadrant. Limited survey images of the RIGHT kidney shows no pelvocaliectasis. There may be some cortical scarring in the upper portion of the kidney. Elastography of the liver was performed in the right lobe: Median velocity: 1.02 m/s IQR/median ratio: 0.19 (Value less than or equal to 0.3 should be seen to ensure exam adequacy.) IMPRESSION: Normal liver. Elastography shows no evidence of clinically significant fibrosis. Gallstones without other signs of acute cholecystitis. \H\SRU Consensus of Suggested Thresholds in Patients with Hepatitis C (Based upon Siemens pSWE):\N\ Median Velocity: Recommendation: < 1.2 m/s (Seimens No Clinically Significant Fibrosis: METAVIR Stage 2.2 m/s Advanced Fibrosis and/or Cirrhosis: METAVIR Stage F4 and Some F3 Clinically significant Fibrosis \H\ \N\ Elastography Assessment of Liver Fibrosis: Society of Radiologists in Ultrasound Consensus Conference Statement Nicci Wan, Izzy Duran, Adam Hays, Moris Espinoza, Betzaida Jackson, Brent Tate, Dewayne Neal, Subhash Pollock, Karyn Hannah, Nuzhat Mcclellan, and Nuzhat Gotti Radiology 2015 276:3, [phone] Interpreted By: Brett Cheema MD Preliminary Report By: Brett Cheema MD Electronically Signed By: Brett Cheema MD Dictated Date: 08/12/2019 11:16:29 AM Prelim Date: 08/12/2019 11:16:29 AM Sign Date: 08/12/2019 11:18:14 AM Ordering Provider:Ney Hart [facility] ([place]) Basic Metabolic Profile (BMP )Ordered By: Planner Intern on 04-24-2017 Basic metabolic 2000 panel 59 mL/min Abnormal [facility] Work Phone: Comment on above: Non- GFR Calc [facility] [address] [place], [place], [phone] Basic metabolic 2000 panel 25 mg/dL Abnormal 7-18 [facility] Work Phone: Comment on above: [facility] [address] [place], [place], [phone] Basic metabolic 2000 panel 72 mL/min Normal [facility] Work Phone: Comment on above: GFR Calc [facility] [address] [place], [place], [phone] Basic metabolic 2000 panel 56.28 ml/min Normal [facility] Work Phone: Comment on above: [facility] [address] [place], [place], [address] Basic metabolic 2000 panel 24.5 {RATIO} Abnormal 10-20 [facility] Work Phone: Comment on above: [facility] [address] [place], [address] Basic metabolic 2000 panel 123 mg/dL Abnormal 70-110 [facility] Work Phone: Comment on above: Fasting Glucose resu lt from 110 to <126 mg/dLsuggests IMPAIRED HOMEOSTASIS per A.D.A. criteria. [facility] [address] [place], [address] Basic metabolic 2000 panel 3.8 mmol/L Normal 3.5-5.1 [facility] Work Phone: Comment on above: [facility] [address] [place], [place], [address] Basic metabolic 2000 panel 11 1 Normal 5-15 [facility] Work Phone: Comment on above: [facility] [address] [place], [place], [address] Basic metabolic 2000 panel 9.3 mg/dL Normal 8.5-10.1 [facility] Work Phone: Comment on above: [facility] [address] [place], [address] Basic metabolic 2000 panel 24.0 mmol/L Normal 21.0-32.0 [facility] Work Phone: Comment on above: [facility] [address] [place], [address] Basic metabolic 2000 panel 137 mmol/L Normal 136-145 [facility] Work Phone: Comment on above: [facility] [address] [place], [address] Basic metabolic 2000 panel 1.02 mg/dL Normal 0.55-1.02 [facility] Work Phone: Comment on above: The validity of the calculated GFR AND GFRAA in patients over70 years has not been determined. Clinical correlation isessential. [facility] [address] [place], [place], [phone] Basic metabolic 2000 panel 102 mmol/L Normal 98-107 [facility] Work Phone: Comment on above: [facility] [address] [place], [place], [phone] CBC-Complete Blood Cnt No Di ffOrdered By: Planner Intern on 04-24-2017 Erythrocyte distribution width Ratio (RBC) 12.0 % Normal 11.6-14.6 [facility] Work Phone: Comment on above: [facility] [address] [place], [place], [phone] Hematocrit Volume Fraction (Bld) 40.0 % Normal 37-47 [facility] Internal Medicine Work Phone: Comment on above: [facility] [address] [place], [place], [phone] Hemoglobin mass conc (Bld) 13.4 g/dL Normal 12.0-15.0 [facility] Internal Medicine Work Phone: Comment on above: [facility] [address] [place], [place], [phone] MCH Entitic mass (RBC) 29.9 pg Normal 27.0-32.0 [facility] Internal Medicine Work Phone: Comment on above: [facility] [address] [place], [place], [phone] MCHC mass conc (RBC) 33.5 {g/gl} Normal 32-36 [facility] Internal Medicine Work Phone: Comment on above: [facility] [address] [place], [place], [phone] MCV Entitic volume (RBC) 89.3 fL Normal 81-99 [facility] Work Phone: Comment on above: [facility] [address] [place], [place], [phone] Platelet mean volume Entitic volume (Bld) 10.4 fL Normal 6.2-12.0 [facility] Work Phone: Comment on above: [facility] [address] [place], [address] Platelets #/vol (Bld) 256 10*3/uL Normal 150-450 [facility] Work Phone: Comment on above: [facility] [address] [place], [address] RBC #/vol (Bld) 4.48 {M/mm3} Normal 4.2-5.4 Compreh ensive [facility] Medicine Work Phone: Comment on above: [facility] [address] [place], [place], [phone] WBC #/vol (Bld) 9.0 10*3/uL Normal 4.4-11.0 Comprehe nsive [facility] Work Phone: Comment on above: [facility] [address] [place], [address] CBC-Complete Blood Cnt No Diff 38.8 fL Normal 35.1-43.9 [facility] Work Phone: Comment on above: [facility] [address] [place], [address] BREAST BIOPSY (CHOOSE SITE)O rdered By: Planner Intern on 03-29-2017 BREAST BIOPSY (CHOOSE SITE) See Note Normal [facility] Work Phone: Comment on above: Patient: PAT SORTO : 1960 (57/F) Acct Num: [id number] Phys: Nusrat NARAYAN,Subhash Unit Num: [id number] Loc: LABSPEC Specimen: [id number] Received: 03/29/171713 Spec Type: BREAST BX TISSUES TISSUES: Left breast, NOS ADDENDUM Addendum Number 1 This addendum is added to incorporate an outside pathology consultation report. The case was examined at [facility] (#[id number]) and the following diagnosis was rendered. Left breast, core needle biopsy: Invasive ductal carcinoma, nuclear grade 2. Focal ductal carcinoma in situ, nuclear grade 2, cribriform type. Please see complete above mentioned consultation report in EMR Addendum Signed Julius Sheffield 09/04/17 COMMENT Immunohistochemistry ([id number]) supports the above diagnosis. ER/SC/Blw5czw studies are being performed on sections of tumor and the results from this study will be reported separately ([id number]). Please make reference to previous specimen ([id number]) left breast, core biopsy with diagnosis of fibrocystic changes with intraductal hyperplasia without atypia. GROSS DESCRIPTION Received in fixative is one container labeled with the patient's name and designated breast biopsy. The specimen consists of two elongated fragments oftan-yellow fibroadipose tissue that in aggregate measure 1.5 x 0.2 x 0.1 cm. The entire specimen is submitted in one cassette. / ARNOLDO:dru 04/02/17 TC:0 CPT: 03810 HEADER OPERATION: Left breast core biopsy PRE-OP DIAGNOSIS: Left breast lump TISSUE SUBMITTED: Left breast tissue ISCHEMIC TIME: 1 minute FIXATION TIME: 101 hours MICROSCOPIC DESCRIPTION Slides are reviewed. MICROSCOPIC DIAGNOSIS Left breast, core biopsy: Invasive ductal carcinoma, nuclear grade 2 (1.3 cm in greatest length). See comment. ARNOLDO:dru 04/03/17 Signed Julius Sheffield 04/04/17 [facility] [place], [address] IMMUNOHISTOCHEMISTRYOrdered By: Planner Intern on 03-29-2017 IMMUNOHISTOCHEMISTRY See Note Normal Comp rehensive Internal Medicine Work Phone: Comment on above: Patient: PAT SORTO : 1960 (57/F) Acct Num: [id number] Phys: Subhash Silverio MD Unit Num: [id number] Loc: LABSPEC Specimen: [id number] Received: 04/03/17 - 1011 Spec Type: IMMUNO TISSUES TISSUES: Left breast, NOS SPECIMEN INFORMATION: Tissue Source: Left breast Clinical Info: Left breast lump Specimen Number: [id number] CPT code: 26868, 99547 x4, 45910 x3 METHODOLOGY: Deparaffinized sections of prefer/formalin-fixed tissue or PAP/DQ stained slides are incubated with monoclonal/polyclonal antibodies/oligonucleotide probes. Localization is made via biotin free immunoperoxidase method. Appropriate controls are performed and reacted as expected. Results on target cell population are indicated in the following table: RESULTS: ANTIBODY / CLONE RESULT E-Cad (ECH-6) positive CK8 (05nxmjG22) positive CK5-6 (D5 AND 1684) negative Ki-67 (30-9) positive, moderate P53 (DO-7) positive, weak, rare cells MORPHOMETRIC ANALYSIS ER (clone 6F11) >95%, strong SC (clone 16/1E2) >95%, strong Her-2Neu (clone CB11) 0 The prognostic test for HER2 is performed on formalin-fixed paraffin embedded tissue. A 3+ (positive) staining pattern is defined as intense, homogeneous, complete, circumferential membranous staining in >10% of contiguous tumor cells. A similar weak (2+) staining pattern is interpreted as equivocal. IDEGO follow-up testing is recommended for all equivocal cases. Positivity/negativity for ER/SC is reported if > or < 1% of the tumor cells are immuno- reactive, respectively. The ASCO/CAP criteria is used for scoring. Reference: Journal of Clinical Oncology, 2013; 31:0227-2377 AND 2010; 16:0520-7886. Duration of fixation: 99 Hrs; Sample Adequate: Yes. These assays have not been validated on decalcified tissues. Results should beinterpreted with caution given the likelihood of false negativity on decalcifiedspecimens. These tests were developed and their performance characteristics determined by [facility]. They may not have been cleared or approved by the U.S. Food and Drug Administration. The FDA has determined that such clearance or approval is not necessary. INTERPRETATION: Left breast, core biopsy: Invasive ductal carcinoma, nuclear grade 2. Positive for estrogen receptors (favorable prognostic indicator). Positive for progesterone receptors (favorable prognostic indicator). Negative for overexpression of HMZ8tzv. SJ:dru 04/04/17 PHYSICIAN AND INSTITUTION [facility] [address] [place] [address] 22182 Signed Julius Sheffield 04/04/17 [facility] Asam[address]bdial[address] [place], [address] CBC W/AUTO DIFF WBC (37227)O rdered By: Planner Intern on 03-15-2017 Basophils #/vol (Bld) 0.0 {x10E3/uL} Normal 0.0-0.2 [facility] Work Phone: Comment on above: PATIENT WAS FASTINGP ERFORMED BY: LabCoStrategic Health ServicesTqpkit4531 [facility] [id number] Basophils/100 WBC (Bld) 0 % Normal C omprehensive Internal Medicine Work Phone: Comment on above: PATIENT WAS FASTINGP ERFORMED BY: 1calendar Bngdnz0378 [facility] [id number] Eosinophils #/vol (Bld) 0.1 {x10E3/uL} Normal 0.0-0.4 [facility] Work Phone: Comment on above: PATIENT WAS FASTINGP ERFORMED BY: buildabrand6370 [facility] [id number] Eosinophils/100 WBC (Bld) 1 % Normal [facility] Work Phone: Comment on above: PATIENT WAS FASTINGP ERFORMED BY: SongFlame Uccurd5223 [facility] [id number] Erythrocyte distribution width Ratio (RBC) 12.7 % Normal 12.3-15.4 [facility] Work Phone: Comment on above: PATIENT WAS FASTINGP ERFORMED BY: LUIS F Ricks[address] [facility] [id number] Hematocrit Volume Fraction (Bld) 37.1 % Normal 34.0-46.6 [facility] Work Phone: Comment on above: PATIENT WAS FASTINGP ERFORMED BY: LUIS F Ricks6370 [facility] [id number] Hemoglobin mass conc (Bld) 12.2 g/dL Normal 11.1-15.9 [facility] Work Phone: Comment on above: Please note refere nce interval change PATIENT WAS FASTINGP ERFORMED BY: LUIS F Byrdlin6370 [facility] [id number] Immature granulocytes #/vol (Bld) 0.0 {x10E3/uL} Normal 0.0-0.1 [facility] Work Phone: Comment on above: PATIENT WAS FASTINGP ERFORMED BY: LUIS F Byrdlin6370 [facility] [id number] Immature granulocytes/100 WBC (Bld) 0 % Normal [facility] Work Phone: Comment on above: PATIENT WAS FASTINGP ERFORMED BY: LUIS F Byrdlin6370 [facility] [id number] Lymphocytes #/vol (Bld) 2.0 {x10E3/uL} Normal 0.7-3.1 [facility] Work Phone: Comment on above: PATIENT WAS FASTINGP ERFORMED BY: LUIS F MichaelMsbushra ByrdPqoslf3573 [facility] [id number] Lymphocytes/100 WBC (Bld) 27 % Normal [facility] Work Phone: Comment on above: PATIENT WAS FASTINGP ERFORMED BY: LUIS F Byrdlin6370 [facility] [id number] MCH Entitic mass (RBC) 30.1 pg Normal 26.6-33.0 [facility] Internal Medicine Work Phone: Comment on above: PATIENT WAS FASTINGP ERFORMED BY: LUIS F MichaelDoctors [facility] Sqixig[address] [facility] [place] [id number] MCHC mass conc (RBC) 32.9 g/dL Normal 31.5-35.7 [facility] Internal Medicine Work Phone: Comment on above: PATIENT WAS FASTINGP ERFORMED BY: LUIS F LabCo Opjvsr3285 [address] [facility] [place] [id number] MCV Entitic volume (RBC) 92 fL Normal 79-97 [facility] Work Phone: Comment on above: PATIENT WAS FASTINGP ERFORMED BY: LUIS F LabCo Zlvibq1967 [address] RoadEcu Health Edgecombe Hospitalin [place] [id number] Monocytes #/vol (Bld) 0.5 {x10E3/uL} Normal 0.1-0.9 [facility] Work Phone: Comment on above: PATIENT WAS FASTINGP ERFORMED BY: LUIS F [facility] Ubywvc1196 [address] [facility] [id number] Monocytes/100 WBC (Bld) 7 % Normal C [facility] Internal Medicine Work Phone: Comment on above: PATIENT WAS FASTINGP ERFORMED BY: LUIS F LabDoctors [facility] Magmbp2245 [address] [facility] [place] [id number] Neutrophils #/vol (Bld) 5.0 {x10E3/uL} Normal 1.4-7.0 [facility] Work Phone: Comment on above: PATIENT WAS FASTINGP ERFORMED BY: LUIS F LabDoctors [facility] Pcetca7663 [address] [facility] [id number] Neutrophils/100 WBC (Bld) 65 % Normal [facility] Work Phone: Comment on above: PATIENT WAS FASTINGP ERFORMED BY: LUIS F LabDoctors [facility] Shwhvv8604 [address] RoadDublin [place] [id number] Platelets #/vol (Bld) 250 {x10E3/uL} Normal 150-379 [facility] Work Phone: Comment on above: PATIENT WAS FASTINGP ERFORMED BY: LUIS F LabDoctors [facility] Exnzja4940 [address] RoadDublin [place] [id number] RBC #/vol (Bld) 4.05 {x10E6/uL} Normal 3.77-5.28 [facility] Centerens[facility] Work Phone: Comment on above: PATIENT WAS FASTINGP ERFORMED BY: LUIS F [facility] Sxhpbt0495 [address] RoadDublin [place] [id number] WBC #/vol (Bld) 7.7 {x10E3/uL} Normal 3.4-10.8 [facility] Internal Medicine Work Phone: Comment on above: PATIENT WAS FASTINGP ERFORMED BY: CB [facility] Fdcrwe4217 [address] RoadDublin [place] [id number] LIPID PANEL ([id number])Ordered B y: Planner Intern on 03-15-2017 Cholesterol in HDL mass conc 40 mg/dL Normal [facility] Work Phone: Comment on above: PATIENT WAS FASTINGP ERFORMED BY: LUIS F [facility] Myqcld3582 [address] RoadDublin [place] [id number] Cholesterol in LDL mass conc 107 mg/dL Abnormal 0-99 [facility] Work Phone: Comment on above: PATIENT WAS FASTINGP ERFORMED BY: LUIS F [facility] Zaofyi7559 [address] RoadDublin [place] [id number] Cholesterol in LDL/Cholesterol in HDL mass ratio 2.7 {ratio_units} Normal 0.0-3.2 [facility] Work Phone: Comment on above: LDL/HDL Ratio Men Wo men 1/2 Avg.Risk 1.0 1.5 Avg.Risk 3.6 3.2 2X Avg.Risk 6.2 5.0 3X Avg.Risk 8.0 6.1 PATIENT WAS FASTINGP ERFORMED BY: LUIS F [facility] Qaglue4265 [address] RoadDublin [place] [id number] Cholesterol in VLDL mass conc 29 mg/dL Normal 5-40 [facility] Work Phone: Comment on above: PATIENT WAS FASTINGP ERFORMED BY: LUIS F [facility] Seuohc3165 [address] RoadDublin [place] [id number] Cholesterol mass conc 176 mg/dL Normal 100-199 [facility] Work Phone: Comment on above: PATIENT WAS FASTINGP ERFORMED BY: LUIS F [facility] Mmadpo4124 [address] RoadDublin [place] [id number] Triglyceride mass conc 144 mg/dL Normal 0-149 [facility] Internal Medicine Work Phone: Comment on above: PATIENT WAS FASTINGP ERFORMED BY: LUIS F [facility] Btuksm3148 [address] [facility] [place] [id number] METABOLIC PANEL, COMPREHENSI VE ([id number])Ordered By: Planner Intern on 03-15-2017 Albumin mass conc 4.1 g/dL Normal 3.5-5.[address] [facility] Internal Medicine Work Phone: Comment on above: PATIENT WAS FASTINGP ERFORMED BY: LabCo Juezin6609 [address] [facility] [id number] Albumin/Globulin mass ratio 1.3 {ratio} Normal 1.2-2.2 [facility] Work Phone: Comment on above: PATIENT WAS FASTINGP ERFORMED BY: LabCo Locxok3475 [address] [facility] [place] [id number] ALP enzyme act/vol 86 [iU]/L Normal 39-[address] [facility] Internal Medicine Work Phone: Comment on above: PATIENT WAS FASTINGP ERFORMED BY: LabCo Spwptv9318 [address] [facility] [place] [id number] ALT enzyme act/vol 12 [iU]/L Normal 0-[address] [facility] Internal Medicine Work Phone: Comment on above: PATIENT WAS FASTINGP ERFORMED BY: Lab[facility] Miutyy3734 [address] [facility] [place] [id number] AST enzyme act/vol 19 [iU]/L Normal 0-[address] [facility] Internal Medicine Work Phone: Comment on above: PATIENT WAS FASTINGP ERFORMED BY: [facility] Wrhadn1931 [address] [facility] [place] [id number] Bilirubin mass conc 0.4 mg/dL Normal 0.0-1.2 [facility] Internal Medicine Work Phone: Comment on above: PATIENT WAS FASTINGP ERFORMED BY: LUIS F [facility] Wjwzoq4525 [address] RoadDublin [place] [id number] Calcium mass conc 9.5 mg/dL Normal 8.7-10.2 Compreh ensive Internal Medicine Work Phone: Comment on above: PATIENT WAS FASTINGP ERFORMED BY: CB [facility] Lzelin7246 [address] RoadDublin [place] [id number] Chloride molar conc 99 mmol/L Normal 96-106 Compr ehensive Internal Medicine Work Phone: Comment on above: PATIENT WAS FASTINGP ERFORMED BY: LUIS F [facility] Ofufnw1590 [address] RoadDublin [place] [id number] CO2 molar conc 27 mmol/L Normal 18-29 Comprehens leda Internal Medicine Work Phone: Comment on above: PATIENT WAS FASTINGP ERFORMED BY: LUIS F [facility] Ijnpvy5075 [address] RoadEcu Health Edge[facility] Hospitalin [place] [id number] Creatinine mass conc 0.95 mg/dL Normal 0.57-1.[address]ensive Internal Medicine Work Phone: Comment on above: PATIENT WAS FASTINGP ERFORMED BY: LabCo Kdikaj1199 [address] Roadblin [place] [id number] GFR/1.73 sq M predicted among blacks CKD-EPI vol rate/area (S/P/Bld) 76 mL/min/1.73 Normal Comprehe ive Internal Medicine Work Phone: Comment on above: PATIENT WAS FASTINGP ERFORMED BY: [facility] Mqsglv5755 [address] RoadDuin [place] [id number] GFR/1.73 sq M predicted among non-blacks CKD-EPI vol rate/area (S/P/Bld) 66 mL/min/1.73 Normal [facility] Work Phone: Comment on above: PATIENT WAS FASTINGP ERFORMED BY: CB [facility] Uzvchb3753 [address] RoadDublin [place] [id number] Globulin mass conc (S) 3.2 g/dL Normal 1.5-4.5 Co mprensive Internal Medicine Work Phone: Comment on above: PATIENT WAS FASTINGP ERFORMED BY: LUIS F [facility] Qgnxzi4028 [address] RoadDublin [place] [id number] Glucose mass conc 99 mg/dL Normal 65-99 Compreh ensive Internal Medicine Work Phone: Comment on above: PATIENT WAS FASTINGP ERFORMED BY: LUIS F LabKendy ByrdVcghlc1343 [address] RoadDublin [place] [id number] Potassium molar conc 4.1 mmol/L Normal 3.5-5.2 Comp rehensive Internal Medicine Work Phone: Comment on above: PATIENT WAS FASTINGP ERFORMED BY: LUIS F [facility] Lrptks6473 [address] RoadDublin [place] [id number] Protein mass conc 7.3 g/dL Normal 6.0-8.5 Compreh ensive Internal Medicine Work Phone: Comment on above: PATIENT WAS FASTINGP ERFORMED BY: LUIS F LabCobushra ByrdFielad8343 [address] RoadDublin [place] [id number] Sodium molar conc 140 mmol/L Normal 134-144 Compreh ensive Internal Medicine Work Phone: Comment on above: PATIENT WAS FASTINGP ERFORMED BY: LUIS F LabCobushra ByrdXqyaer1531 [address] RoadDublin [place] [id number] Urea nitrogen mass conc 22 mg/dL Normal 6-24 C omprehensive Internal Medicine Work Phone: Comment on above: PATIENT WAS FASTINGP ERFORMED BY: LUIS F LabKendy ByrdVgfbzg8250 [address] RoadDublin [place] [id number] Urea nitrogen/Creatinine mass ratio 23 mg/mg Normal 9-23 [facility] Work Phone: Comment on above: PATIENT WAS FASTINGP ERFORMED BY: LUIS F [facility] Aotcvt6681 [address] RoadDublin [place] [id number] MICROALBUMINOrdered By: Syst em Sales And Service Consultant on 03-15-2017 Albumin DL <= 20 mg/L mass conc (U) 6.1 ug/mL Normal [facility] Work Phone: Comment on above: PATIENT WAS FASTINGP ERFORMED BY: LUIS F [facility] Zbfesb8762 [address] RoadDublin [place] [id number] Albumin/Creatinine mass ratio (U) 3.1 {mg/g_creat} Normal 0.0-30.0 [facility] Work Phone: Comment on above: PATIENT WAS FASTINGP ERFORMED BY: [facility] Ysztax6687 [address] RoadDublin [place] [id number] Creatinine mass conc (U) 196.5 mg/dL Normal [facility] Work Phone: Comment on above: PATIENT WAS FASTINGP ERFORMED BY: [facility] Axnuzn4586 [address] Roadbl[address] [place] [id number] Microscopic ExaminationOrder ed By: Planner Intern on 03-15-2017 Bacteria LM.HPF #/area (Urine sed) Few Normal [facility] Work Phone: Comment on above: PATIENT WAS FASTINGP ERFORMED BY: [facility] Kfymlq7121 [address] [facility] [place] [id number] Casts LM Nom (Urine sed) Hyaline casts Normal [facility] Work Phone: Comment on above: PATIENT WAS FASTINGP ERFORMED BY: [facility] Tmbdtl6915 [address] RoadDublin [place] [id number] Casts LM Ql (Urine sed) Present Abnormal C omprehensive Internal Medicine Work Phone: Comment on above: PATIENT WAS FASTINGP ERFORMED BY: [facility] Gdzkhr9722 [address] [facility] [place] [id number] Epithelial cells LM.HPF #/area (Urine sed) None seen Normal 0 - 10 [facility] Work Phone: Comment on above: PATIENT WAS FASTINGP ERFORMED BY: [facility] Geuahi1766 [address] Roadbl[address] [place] [id number] Mucus Ql (Urine sed) Present Normal Comp rehensive Internal Medicine Work Phone: Comment on above: PATIENT WAS FASTINGP ERFORMED BY: [facility] Macnec5392 [address] RoadDublin [place] [id number] RBC LM.HPF #/area (Urine sed) None seen Normal 0 - 2 [facility] Work Phone: Comment on above: PATIENT WAS FASTINGP ERFORMED BY: LUIS F Lab[facility] Djkqpb1522 [address] RoadDublin [place] [id number] WBC LM.HPF #/area (Urine sed) 0-5 Normal 0 - 5 [facility] Work Phone: Comment on above: PATIENT WAS FASTINGP ERFORMED BY: LUIS F [facility] Clyleq2919 [address] RoadDublin [place] [id number] TSH ([id number])Ordered By: Nourishe m Sales And Service Consultant on 03-15-2017 Thyrotropin Qn 1.510 {uIU/mL} Normal 0.450-4.50 0 [facility] Work Phone: Comment on above: PATIENT WAS FASTINGP ERFORMED BY: LUIS F [facility] Bgxnfp1659 [address] RoadDublin [place] [id number] URINALYSIS, W/ MICRO ([id number]) Ordered By: Planner Intern on 03-15-2017 Appearance Nom (U) Clear Normal Compre hensive Internal Medicine Work Phone: Comment on above: PATIENT WAS FASTINGP ERFORMED BY: LUIS F [facility] Ouhwky0433 [address] RoadDublin [place] [id number] Bilirubin Ql (U) Negative Normal Comprehe nsive Internal Medicine Work Phone: Comment on above: PATIENT WAS FASTINGP ERFORMED BY: LUIS F [facility] Ikdvny9090 [address] RoadDublin [place] [id number] Color Nom (U) Yellow Normal Comprehensi ve Internal Medicine Work Phone: Comment on above: PATIENT WAS FASTINGP ERFORMED BY: LUIS F [facility] Xirkzv3335 [address] RoadDublin [place] [id number] Glucose Ql (U) Negative Normal Comprehens leda Internal Medicine Work Phone: Comment on above: PATIENT WAS FASTINGP ERFORMED BY: LUIS F [facility] Haxxcg6311 [address] RoadDublin [place] [id number] Hemoglobin Ql (U) Negative Normal Compreh ensive Internal Medicine Work Phone: Comment on above: PATIENT WAS FASTINGP ERFORMED BY: LUIS F [facility] Rmdjys7542 [address] RoadDublin [place] [id number] Ketones Ql (U) Negative Normal Comprehens leda Internal Medicine Work Phone: Comment on above: PATIENT WAS FASTINGP ERFORMED BY: LUIS F Ricks6370 [facility] [id number] Leukocyte esterase Test strip Ql (U) Negative Normal [facility] Work Phone: Comment on above: PATIENT WAS FASTINGP ERFORMED BY: LUIS F Ricks6370 [facility] [id number] Microscopic observation LM Nom (Urine sed) MICRON Normal [facility] Work Phone: Comment on above: Microscopic follows if indicated. PATIENT WAS FASTINGP ERFORMED BY: LUIS F Ricks6370 [facility] [id number] Microscopic observation LM Nom (Urine sed) See below: Normal [facility] Work Phone: Comment on above: Microscopic was brittany cated and was performed. PATIENT WAS FASTINGP ERFORMED BY: LUIS F Byrdlin6370 [facility] [id number] Nitrite Ql (U) Negative Normal Comprehens leda Internal Medicine Work Phone: Comment on above: PATIENT WAS FASTINGP ERFORMED BY: LUIS F Ricks6370 [facility] [id number] pH (U) 5.0 [pH] Normal 5.0-7.5 [facility] Work Phone: Comment on above: PATIENT WAS FASTINGP ERFORMED BY: LUIS F Byrdlin6370 [facility] [id number] Protein Ql (U) Negative Normal Comprehens leda Internal Medicine Work Phone: Comment on above: PATIENT WAS FASTINGP ERFORMED BY: LUIS F Ricks6370 [facility] [id number] Specific gravity Relative Density (U) 1.026 1 Normal 1.005-1.03 0 [facility] Work Phone: Comment on above: PATIENT WAS FASTINGP ERFORMED BY: LUIS F Byrdlin6370 [facility] [id number] Urobilinogen Test strip mass conc (U) 0.2 mg/dL Normal 0.2-1.0 [facility] Work Phone: Comment on above: PATIENT WAS FASTINGP ERFORMED BY: LUIS F LabCoStrategic Health ServicesHcescn4026 [facility] [id number] HgA1C , Office ([id number])Ordere d By: Zee Avila on 03-14-2017 Hemoglobin A1c/Hemoglobin.total mass fraction (Bld) 5.9 % Normal 4.6 - 7.1 Comprehensiv e Internal Medicine Work Phone: HPV automatic ([id number])Ordered By: Planner Intern on 02-11-2017 HPV 16+18+31+33+35+39+45+51 +52+56+58+59+68 DNA Probe+sig amp Ql (Cvx) Negative Normal Comprehen sive Internal Medicine Work Phone: Comment on above: This high-risk HPV t est detects thirteen high-risk types(16/18/31/33/35/39/45/51/52/56/58/59/68) without differentiation. . Source.............C ervix;EndocervixNo. of containers..01 ThinPrep VialPATIENT NOT FASTINGPERFORMED BY: WB EmSense W [id number] BY: =G [facility] Ponlltcynj[address]ESr[address] Lal PathLabs [place] [id number] Information: [id number] Microscopic observation Other stain Nom (Unsp spec) . Normal [facility] Work Phone: Comment on above: Source.............C ervix;EndocervixNo. of containers..01 ThinPrep VialPATIENT NOT FASTINGPERFORMED BY: WB LabCicerOOs120 Yostro W [id number] BY: =G [facility] Xqeapihyel[address] Lal [employer] [place] [id number] Information: [id number] Pathology report final diagnosis Narrative SPRCS Normal Comprehensiv e Internal Medicine Work Phone: Comment on above: NEGATIVE FOR INTRAEP ITHELIAL LESION AND MALIGNANCY.THIS SPECIMEN WAS RESCREENED PART OF OUR COTTON HEADER PROGRAM.Satisfactory for evaluation. Endocervical and/or squamous metaplasticcells (endocervical component) are present.Z11.51Scott Janee Morgan, Brooch And Bracelet Maker (ASC)Alee Schulte, Supervisory Brooch And Bracelet Maker (ASCP) Source.............C ervix;EndocervixNo. of containers..01 ThinPrep VialPATIENT NOT FASTINGPERFORMED BY: WB [employer]120 O-CODESrChoose Energyton W [id number] BY: =G [employer]120 FriendsigniazaReflex Systemsrleston [place] [id number] Information: [id number] HPV automatic ([id number]) PAPSMR Normal [facility] prehensive Internal Medicine Work Phone: Comment on above: The Pap smear is a s creening test designed to aid in the detection ofpremalignant and malignant conditions of the uterine cervix. It is not adiagnostic procedure and should not be used as the sole means of detectingcervical cancer. Both false-positive and false-negative reports do occur. .This liquid based ThinPrep(R) pap test was screened with theuse of an image guided system. Source.............C ervix;EndocervixNo. of containers..01 ThinPrep VialPATIENT NOT FASTINGPERFORMED BY: WB [employer]120 [employer] PlaDiatherix LaboratoriesrChoose Energyton [place] [id number] BY: =G [employer]120 [employer] PlazaReflex Systemsrleston [place] [id number] Information: [id number] CBC-Complete Blood Cnt No Di ffOrdered By: Planner Intern on 01-14-2017 Erythrocyte distribution width Ratio (RBC) 12.2 % Normal 11.6-14.6 [facility] Work Phone: Comment on above: [facility] [address] [place], [place], [id number] Hematocrit Volume Fraction (Bld) 37.5 % Normal 37-47 [facility] Work Phone: Comment on above: [facility] [address] [place], [address] Hemoglobin mass conc (Bld) 12.2 g/dL Normal 12.0-15.0 [facility] Internal Medicine Work Phone: Comment on above: [facility] [address] [place], [address] MCH Entitic mass (RBC) 29.6 pg Normal 27.0-32.0 [facility] Internal Medicine Work Phone: Comment on above: [facility] [address] [place], [address] MCHC mass conc (RBC) 32.5 {g/gl} Normal 32-36 Com prehensive Internal Medicine Work Phone: Comment on above: [facility] [address] [place], [address] MCV Entitic volume (RBC) 91.0 fL Normal 81-99 [facility] Internal Medicine Work Phone: Comment on above: [facility] [address] [place], [address] Platelet mean volume Entitic volume (Bld) 11.6 fL Normal 6.2-12.0 [facility] Internal Medicine Work Phone: Comment on above: [facility] [address] [place], [address] Platelets #/vol (Bld) 237 10*3/uL Normal 150-450 [facility] Work Phone: Comment on above: [facility] [address] [place], [place], [phone] RBC #/vol (Bld) 4.12 {M/mm3} Abnormal 4.2-5.4 Compreh ensive Internal Medicine Work Phone: Comment on above: [facility] [address] [place], [place], [address] WBC #/vol (Bld) 8.9 10*3/uL Normal 4.4-11.0 Comprehe nsive Internal Medicine Work Phone: Comment on above: [facility] [address] [place], [place], [address] CBC-Complete Blood Cnt No Diff 40.7 fL Normal 35.1-43.9 [facility] Internal Medicine Work Phone: Comment on above: [facility] [address] [place], [address] Liver ProfileOrdered By: Tejal tem Sales And Service Consultant on 01-14-2017 Albumin mass conc 3.8 g/dL Normal 3.4-5.0 Compreh ensive Internal Medicine Work Phone: Comment on above: [facility] [address] [place], [place], [address] ALP enzyme act/vol 95 U/L Normal 45-117 [facility]pre [facility] Work Phone: Comment on above: [facility] [address] [place], [place], [address] ALT enzyme act/vol 23 U/L Normal 12-78 Compre hensive Internal Medicine Work Phone: Comment on above: [facility] [address] [place], [address] AST enzyme act/vol 19 U/L Normal 15-37 Compre [facility] Internal [facility] Work Phone: Comment on above: [facility] [address] [place], [address] Bilirubin mass conc 0.30 mg/dL Normal 0.20-1.00 [facility] Work Phone: Comment on above: [facility] [address] [place], [address] Bilirubin.direct mass conc 0.09 mg/dL Normal 0.00-0.30 [facility] Internal Medicine Work Phone: Comment on above: [facility] [address] [place], [address] Globulin mass conc (S) 4.1 g/dL Abnormal 2.3-3.5 [facility] Internal Medicine Work Phone: Comment on above: [facility] [address] [place], [address] Protein mass conc 7.9 g/dL Normal 6.4-8.2 [facility] Internal Medicine Work Phone: Comment on above: [facility] [address] [place], [address] Prothrombin Time w/INROrdere d By: Planner Intern on 01-14-2017 INR Coag RelTime (PPP) 1.0 {INR} Normal [facility] Internal Medicine Work Phone: Comment on above: [facility] [address] [place], [address] Prothrombin time (PT) Coag time (PPP) 13.0 s Normal 11.7-14.9 [facility] Internal Medicine Work Phone: Comment on above: [facility] [address] [place], [address] Vitamin D,25 HydroxyOrdered By: Planner Intern on 01-14-2017 Vitamin D,25 Hydroxy 41.1 ng/mL Normal [facility] Internal Medicine Work Phone: Comment on above: Vitamin D 25([place]) Sta tus Range Deficiency <20 ng/mL (50nmol/L) Insuffciency 20 - 30 ng/mL (50 - 75 nmol/L) Sufficiency 30 - 100 ng/mL (75 - 250 nmol/L) Toxicity >100 ng/mL (>250 nmol/L) [facility] [address] [place], [place], [address] Rapid Flu (35462 x 2)Ordered By: Leandra Alex on 06-13-2015 FLUAV Ag IA Ql (Throat) neg a and b Normal [facility] Internal Medicine Work Phone: GGTPOrdered By: System Manag er on 01-12-2015 GGTP 40 U/L Normal 5-55 [facility] Internal Medicine Work Phone: Comment on above: [facility] [address] [place], [place], [address] Liver ProfileOrdered By: Tejal tem Sales And Service Consultant on 01-12-2015 Albumin mass conc 3.4 g/dL Normal 3.4-5.0 Compreh ensive Internal Medicine Work Phone: Comment on above: [facility] [address] [place], [place], [phone] ALP enzyme act/vol 95 U/L Normal 50-136 Compre [facility] Internal [facility] Work Phone: Comment on above: [facility] [address] [place], [place], [address] ALT enzyme act/vol 23 U/L Normal 12-78 Compre [facility] Internal [facility] Work Phone: Comment on above: [facility] [address] [place], [address] AST enzyme act/vol 20 U/L Normal 15-37 Compre hensive Internal Medicine Work Phone: Comment on above: [facility] [address] [place], [place], [phone] Bilirubin mass conc 0.30 mg/dL Normal 0.20-1.00 Compr ehensive Internal Medicine Work Phone: Comment on above: [facility] [address] [place], [place], [address] Bilirubin.direct mass conc 0.10 mg/dL Normal 0.00-0.30 [facility] Internal Medicine Work Phone: Comment on above: [facility] [address] [place], [place], [address] Globulin mass conc (S) 4.0 g/dL Abnormal 2.3-3.5 Co mprehensive Internal Medicine Work Phone: Comment on above: [facility] [address] [place], [place], [address] Protein mass conc 7.4 g/dL Normal 6.4-8.2 Compreh ensive Internal Medicine Work Phone: Comment on above: [facility] [address] [place], [place], [address] Comp. Metabolic Panel (14)Or dered By: Planner Intern on 10-18-2014 Albumin mass conc 4.4 g/dL Normal 3.5-5.5 Compreh ensive Internal Medicine Work Phone: Comment on above: PATIENT NOT FASTINGP ERFORMED BY: CB [facility] Avihdl4583 [facility] [id number] Information: [id number] Albumin/Globulin mass ratio 1.4 {ratio} Normal 1.1-2.5 [facility] Internal Medicine Work Phone: Comment on above: PATIENT NOT FASTINGP ERFORMED BY: CB [facility] Kxwgwe4433 [facility] [id number] Information: [id number] ALP enzyme act/vol 101 [iU]/L Normal 39-117 Compre [facility] Internal Medicine Work Phone: Comment on above: PATIENT NOT FASTINGP ERFORMED BY: CB [facility] Rtvynz9710 [facility] [id number] Information: [id number] ALT enzyme act/vol 19 [iU]/L Normal 0-32 Compre [facility] Internal Medicine Work Phone: Comment on above: PATIENT NOT FASTINGP ERFORMED BY: LUIS F [facility] Cvzaxg3715 [address] [facility] [place] [id number] Information: [id number] AST enzyme act/vol 24 [iU]/L Normal 0-40 Compre [facility] Internal Medicine Work Phone: Comment on above: PATIENT NOT FASTINGP ERFORMED BY: CB [facility] Uprpox1128 [address] [facility] [id number] Information: [id number] Bilirubin mass conc 0.4 mg/dL Normal 0.0-1.2 Compr ensive Internal Medicine Work Phone: Comment on above: PATIENT NOT FASTINGP ERFORMED BY: LUIS F MichaelCobushra ByrdQjmmfk9109 [facility] [id number] Information: [id number] Calcium mass conc 10.0 mg/dL Normal 8.7-10.2 Compreh [facility] Internal [facility] Work Phone: Comment on above: PATIENT NOT FASTINGP ERFORMED BY: LUIS F [facility] Qykmqj4499 [facility] [id number] Information: [id number] Chloride molar conc 101 mmol/L Normal 97-108 Compr ensive Internal Medicine Work Phone: Comment on above: PATIENT NOT FASTINGP ERFORMED BY: LUIS F [facility] Swxvxv4463 [facility] [id number] Information: [id number] CO2 molar conc 25 mmol/L Normal 18-29 Comprehens leda Internal Medicine Work Phone: Comment on above: PATIENT NOT FASTINGP ERFORMED BY: CB [facility] Easgtd5475 [address] [facility] [id number] Information: [id number] Creatinine mass conc 0.88 mg/dL Normal 0.57-1.[address] [facility] Internal [facility] Work Phone: Comment on above: PATIENT NOT FASTINGP ERFORMED BY: CB [facility] Pxtxqx0342 [address]arte RoadDublin [place] [id number] Information: [id number] GFR/1.73 sq M predicted among blacks CKD-EPI vol rate/area (S/P/Bld) 86 mL/min/1.73 Normal Comprehe nsive Internal Medicine Work Phone: Comment on above: PATIENT NOT FASTINGP ERFORMED BY: LUIS F Byrdlin6370 [facility] [id number] Information: [id number] GFR/1.73 sq M predicted among non-blacks CKD-EPI vol rate/area (S/P/Bld) 74 mL/min/1.73 Normal [facility] Internal Medicine Work Phone: Comment on above: PATIENT NOT FASTINGP ERFORMED BY: LUIS F Ricks6370 [facility] [id number] Information: [id number] Globulin mass conc (S) 3.1 g/dL Normal 1.5-4.5 Co mprehensive Internal Medicine Work Phone: Comment on above: PATIENT NOT FASTINGP ERFORMED BY: LUIS F Byrdlin6370 [facility] [id number] Information: [id number] Glucose mass conc 88 mg/dL Normal 65-99 Compreh ensive Internal Medicine Work Phone: Comment on above: PATIENT NOT FASTINGP ERFORMED BY: LUIS F Cohen Rlsdac1308 [facility] [id number] Information: [id number] Potassium molar conc 4.8 mmol/L Normal 3.5-5.2 Comp rehensive Internal Medicine Work Phone: Comment on above: PATIENT NOT FASTINGP ERFORMED BY: LUIS F Byrdlin6370 [facility] [id number] Information: [id number] Protein mass conc 7.5 g/dL Normal 6.0-8.5 Compreh ensive Internal Medicine Work Phone: Comment on above: PATIENT NOT FASTINGP ERFORMED BY: LUIS F [facility] Mtduem0356 [address] [facility] [id number] Information: [id number] Sodium molar conc 141 mmol/L Normal 134-144 Compreh ensive Internal Medicine Work Phone: Comment on above: PATIENT NOT FASTINGP ERFORMED BY: LUIS F [facility] Ufpopc5891 [address] [facility] [id number] Information: [id number] Urea nitrogen mass conc 19 mg/dL Normal 6-24 C omprehensive Internal Medicine Work Phone: Comment on above: PATIENT NOT FASTINGP ERFORMED BY: LUIS F [facility] Arjrqc4818 [address] [facility] [id number] Information: [id number] Urea nitrogen/Creatinine mass ratio 22 mg/mg Normal 9-23 [facility] Internal Medicine Work Phone: Comment on above: PATIENT NOT FASTINGP ERFORMED BY: LUIS F [facility] Qhhgmn2935 [facility] [id number] Information: [id number] Hepatic Function Panel (7)Or dered By: Planner Intern on 10-18-2014 Bilirubin.direct mass conc 0.11 mg/dL Normal 0.00-0.40 [facility] Internal Medicine Work Phone: Comment on above: PATIENT NOT FASTINGP ERFORMED BY: [facility] Ifcsnb8085 [facility] [id number] Lipid Panel With LDL/HDL Rat ioOrdered By: Planner Intern on 10-18-2014 Cholesterol in HDL mass conc 41 mg/dL Normal [facility] Internal Medicine Work Phone: Comment on above: According to ATP-III Guidelines, HDL-C >59 mg/dL is considered anegative risk factor for CHD. PATIENT NOT FASTINGP ERFORMED BY: LUIS F [facility] Eslmgv1397 [address] [facility] [id number] Cholesterol in LDL mass conc 121 mg/dL Abnormal 0-99 [facility] Internal Medicine Work Phone: Comment on above: PATIENT NOT FASTINGP ERFORMED BY: [facility] Ewwpni1841 [address] Iglu.comEcu [facility] Hospitalin [place] [id number] Cholesterol in LDL/Cholesterol in HDL mass ratio 3.0 {ratio_units} Normal 0.0-3.2 [facility] Internal Medicine Work Phone: Comment on above: LDL/HDL Ratio Men Wo men 1/2 Avg.Risk 1.0 1.5 Avg.Risk 3.6 3.2 2X Avg.Risk 6.2 5.0 3X Avg.Risk 8.0 6.1 PATIENT NOT FASTINGP ERFORMED BY: CB [facility] Sognjc2814 [address] [facility] [place] [id number] Cholesterol in VLDL mass conc 47 mg/dL Abnormal 5-40 [facility] Internal Medicine Work Phone: Comment on above: PATIENT NOT FASTINGP ERFORMED BY: [facility] Oouikn4928 [address] [facility] [place] [id number] Cholesterol mass conc 209 mg/dL Abnormal 100-199 Com prehensive Internal Medicine Work Phone: Comment on above: PATIENT NOT FASTINGP ERFORMED BY: [facility] Ennovu3745 [address] [facility] [place] [id number] Triglyceride mass conc 236 mg/dL Abnormal 0-149 [facility] Work Phone: Comment on above: PATIENT NOT FASTINGP ERFORMED BY: [facility] Ydxadr3655 [address] [facility] [id number] CALCIFEDIOL ([id number])Ordered B y: Planner Intern on 07-16-2014 25-Hydroxyvitamin D2+25-Hydroxyvitamin D3 mass conc 24.3 ng/mL Abnormal 30.0-100.0 [facility] Internal Medicine Work Phone: Comment on above: Vitamin D deficiency has been defined by the [place] of[place]icine and an Endocrine Society practice guideline as alevel of serum 25-OH vitamin D less than 20 ng/mL (1,2).The Endocrine Society went on to further define vitamin Dinsufficiency as a level between 21 and 29 ng/mL (2).1. IOM ([place] of Medicine). 2010. Dietary reference intakes for calcium and D. [place]: The National Academies Press.2. Luanne MF, Tessy GONZALEZ, Amanda YOUSIF, et al. Evaluation, treatment, and prevention of vitamin D deficiency: an Endocrine Society clinical practice guideline. JCEM. 2010; 96(7):1911-30. PATIENT NOT FASTINGP ERFORMED BY: CB [facility] Muzzhj7100 [address] RoadDublin [place] [id number] HEPATIC FUNCTION PANEL (8007 6)Ordered By: Planner Intern on 07-16-2014 Albumin mass conc 4.2 g/dL Normal 3.5-5.5 [facility] Internal Medicine Work Phone: Comment on above: PATIENT NOT FASTINGP ERFORMED BY: CB [facility] Jvpbhk0051 [address] RoadDublin [place] [id number] Information: [id number] ALP enzyme act/vol 158 [iU]/L Abnormal 39-[address] [facility] Internal Medicine Work Phone: Comment on above: PATIENT NOT FASTINGP ERFORMED BY: CB [facility] Fneohk3067 [address] RoadDublin [place] [id number] Information: [id number] ALT enzyme act/vol 30 [iU]/L Normal 0-[address] [facility] Internal Medicine Work Phone: Comment on above: PATIENT NOT FASTINGP ERFORMED BY: CB [facility] Iqnhch3309 [address] RoadDublin [place] [id number] Information: [id number] AST enzyme act/vol 26 [iU]/L Normal 0-40 [facility] Internal Medicine Work Phone: Comment on above: PATIENT NOT FASTINGP ERFORMED BY: CB [facility] Uxwmdo9729 [address] RoadDublin [place] [id number] Information: [id number] Bilirubin mass conc 0.4 mg/dL Normal 0.0-1.2 Compr [facility] Internal Medicine Work Phone: Comment on above: PATIENT NOT FASTINGP ERFORMED BY: CB [facility] Dhtudm2369 [address] RoadDublin [place] [id number] Information: [id number] Bilirubin.direct mass conc 0.12 mg/dL Normal 0.00-0.40 [facility] Internal Medicine Work Phone: Comment on above: PATIENT NOT FASTINGP ERFORMED BY: [facility] Tqujdg7437 [facility] [id number] Information: [id number] Protein mass conc 7.3 g/dL Normal 6.0-8.5 Compreh ensive Internal Medicine Work Phone: Comment on above: PATIENT NOT FASTINGP ERFORMED BY: LabCoSt. Joseph's [facility] HospitalYcrfam9463 [facility] [id number] Information: [id number] IMMUNOHISTOCHEMISTRYOrdered By: Planner Intern on 06-07-2014 IMMUNOHISTOCHEMISTRY See Note Normal Comp rehensive Internal Medicine Work Phone: Comment on above: Patient: PAT SORTO : 1960 (54/F) Acct Num: [id number] Phys: Ney Hart Unit Num: [id number] Loc: [facility] Specimen: [id number] Received: 06/09/141215 Spec Type: IMMUNO TISSUES TISSUES: SPECIMEN INFORMATION: Tissue Source: Liver, biopsy Clinical Info: Cirrhosis Specimen Number: [id number] CPT code: 62816 METHODOLOGY: Deparaffinized sections of prefer/formalin-fixed tissue or PAP/DQ stained slides are incubated with monoclonal/polyclonal antibodies/oligonucleotide probes. Localization is made via biotin free immunoperoxidase method. Appropriate controls are performed and reacted as expected. Results on target cell population are indicated in the following table: RESULTS: ANTIBODY / CLONE RESULT CK19 (B170/A53-B/A2.26) positive, focal, see comment These tests were developed and their performance characteristics determined by [facility]. They may not have been cleared or approved by the U.S. Food and Drug Administration. The FDA has determined that such clearance or approval is not necessary. INTERPRETATION: Liver biopsy: Decreased number of bile ducts are noted. Comment: Only a limited tissue is present. SJ:marcia 06/09/14 PHYSICIAN AND INSTITUTION [place] [address] Signed Julius Sheffield 06/10/14 Test performed at:[facility] [address] [place], [place] [address] Patient: PAT SORTO : 1960 (54/F) Acct Num: [id number] Phys: Ney Hart Unit Num: [id number] Loc: [facility] Specimen: [id number] Received: 06/07/14 - 1301 Spec Type: LIVER RES TISSUES TISSUES: COMMENT Morphologic and laboratory findings are consistent with primary biliary cirrhosis. Immunohistochemistry ([id number]) supports the above diagnosis. This case is discussed with Dr. Hart on 06/09/14. Case is reviewed in consultation with Dr Ramirez who concurs with the above diagnosis. IDC:PG GROSS DESCRIPTION Received is one container labeled with the patient name and designated CT guided liver biopsy. The specimen consists of multiple elongated fragments of hauser-white soft tissue measuring in aggregate 1 x 0.1 x < 0.1 cm. The specimen is totally submitted in one cassette. / SJ:libertad 06/07/14 TC:5 CPT: 93416, 61318 x5 HEADER OPERATION: CT guided liver biopsy PRE-OPERATIVE DIAGNOSIS: Cirrhosis TISSUE SUBMITTED: Liver biopsy LIVER PROFILE RESULTS No results available. MICROSCOPIC DESCRIPTION The specimen shows liver parenchymal tissue with preserved lobular architecture. Hepatocytes show minimal reactive changes. Lobular inflammation is not seen. About 16 portal areas are noted in the submitted specimen. Portal areas show moderate chronic inflammatory cell infiltrates predominantly consisting of lymphocytes and a few plasma cells, eosinophils and rare neutrophils. Bile duct inflammation along with destruction is noted. More than 50% of the focal area shows absence of bile duct or bile duct damage. Focal piecemeal necrosis is also noted. Portal l areas also show focal granulomatous inflammation. Focal piecemeal necrosis is also noted. Immunohistochemistry ([id number]) shows decreased number of bile ducts. However, limited tissue is present in the IHC stained slide. Trichrome stain shows focal increased portal fibrosis. Periportal or bridging fibrosis is not seen. Iron stains show absent iron. Reticulin stain is unremarkable. PAS with and without diastase does not show any abnormal accumulation of protein. All stainsare performed with appropriate match control. 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 See Microscopic Description and Comment. SJ:david 06/09/14 Signed Julius Sheffield 06/10/14 Partial Thromboplast TimeOrd ered By: Planner Intern on 06-03-2014 aPTT Coag time (Bld) 33.2 s Normal 24.1-36.2 [facility] Internal Medicine Work Phone: Comment on above: Has pt arrived? YHas pt arrived? YTest performed at:[facility] [address] [place] [address] Platelet CountOrdered By: DeRev stem Sales And Service Consultant on 06-03-2014 Platelets #/vol (Bld) 296 10*3/uL Normal 150-450 [facility] Internal Medicine Work Phone: Comment on above: Has pt arrived? YTes t performed at:[facility] [address] [place] [address] Prothrombin Time w/INROrdere d By: Planner Intern on 06-03-2014 INR Coag RelTime (PPP) 0.9 {INR} Normal [facility] Internal Medicine Work Phone: Comment on above: Has pt arrived? YHas pt arrived? YTest performed at:[facility] [address] [place] [address] Prothrombin time (PT) Coag time (PPP) 12.7 s Normal 11.7-14.9 [facility] Internal Medicine Work Phone: Comment on above: Has pt arrived? YHas pt arrived? YTest performed at:[facility] [address] [place] [address] Liver ProfileOrdered By: Sadiq tem Sales And Service Consultant on 04-28-2014 Albumin mass conc 3.7 g/dL Normal 3.4-5.0 Compreh ensive Internal Medicine Work Phone: Comment on above: Test performed at:[facility] [address] [place] [address] ALT enzyme act/vol 81 U/L Abnormal 12-78 Compre [facility] Internal Medicine Work Phone: Comment on above: Test performed at:[facility] [address] [place] [address] AST enzyme act/vol 48 U/L Abnormal 15-37 Compre [facility] Internal Medicine Work Phone: Comment on above: Test performed at:[facility] [address] [place] [address] Bilirubin mass conc 0.40 mg/dL Normal 0.00-4.00 Compr ensive Internal Medicine Work Phone: Comment on above: Test performed at:[facility] [address] [place] [address] Bilirubin.direct mass conc 0.14 mg/dL Normal 0.00-0.30 [facility] Medicine Work Phone: Comment on above: Test performed at:[facility] [address] [place] [address] Globulin mass conc (S) 4.3 g/dL Abnormal 2.7-4.2 [facility] Internal [facility] Work Phone: Comment on above: Test performed at:[facility] [address] [place] [address] Protein mass conc 8.0 g/dL Normal 6.4-8.2 Compreh ensive Internal Medicine Work Phone: Comment on above: Test performed at:[facility] [address] [place] [address] Liver Profile 286 U/L Abnormal 50-136 Comprehensi ve Internal Medicine Work Phone: Comment on above: Test performed at:[facility] [address] [place] [address] Protein Electroph, SOrdered By: Planner Intern on 04-28-2014 Albumin mass conc 3.8 g/dL Normal 3.2-5.6 Compreh ensive Internal Medicine Work Phone: Comment on above: Test performed at:[facility] [address] [place] [address] Albumin/Globulin mass ratio 1.2 {ratio} Normal 0.7-2.0 [facility] Work Phone: Comment on above: Test performed at:[facility] [address] [place] [address] Globulin mass conc (S) 3.3 g/dL Normal 2.0-4.5 Co mprehensive Internal Medicine Work Phone: Comment on above: Test performed at:[facility] [address] [place] [address] Protein mass conc 7.1 g/dL Normal 6.0-8.5 Compreh ensive Internal Medicine Work Phone: Comment on above: Test performed at:[facility] [address] [place] [address] Protein Electroph, S 1.0 g/dL Normal 0.6-1.3 Comp rehensive Internal Medicine Work Phone: Comment on above: Test performed at:[facility] [address] [place] [address] Protein Electroph, S 0.7 g/dL Normal 0.4-1.2 Comp rehensive Internal Medicine Work Phone: Comment on above: Test performed at:[facility] [address] [place] [address] Protein Electroph, S 0 g/dL Normal Comp rehensive Internal Medicine Work Phone: Comment on above: Test performed at:[facility] [address] [place] [address] Protein Electroph, S 0.3 g/dL Normal 0.1-0.4 Comp rehensive Internal Medicine Work Phone: Comment on above: Test performed at:[facility] [address] [place] [address] Protein Electroph, S Comment Normal Comp rehensive Internal Medicine Work Phone: Comment on above: The SPE pattern appe ars essentially unremarkable. Evidenceof monoclonal protein is not apparent.Performed at: [facility] [id number] Director: Eddie Mclaughlin PhD, Phone: [phone] Test performed at:[facility] [address] [place] [address] Protein electrophore sis scan will follow via computer,mail, or brake lining curer delivery. Protein Electroph, S 1.4 g/dL Normal 0.5-1.6 Comp rehensive Internal Medicine Work Phone: Comment on above: Test performed at:[facility] [address] [place] [address] Vitamin D,25 HydroxyOrdered By: Planner Intern on 04-28-2014 Vitamin D,25 Hydroxy 17.2 ng/mL Normal [facility] rehensive Internal Medicine Work Phone: Comment on above: Vitamin D 25(OH) Sta tus Range Deficiency <20 ng/mL (50nmol/L) Insuffciency 20 - 30 ng/mL (50 - 75 nmol/L) Sufficiency 30 - 100 ng/mL (75 - 250 nmol/L) Toxicity >100 ng/mL (>250 nmol/L) Test performed at:[facility] [address] [place] [address] Basic Metabolic Profile (BMP )Ordered By: Planner Intern on 04-13-2014 Calcium mass conc 8.8 mg/dL Normal 8.5-10.1 [facility]pre[facility] Internal [facility] Work Phone: Comment on above: Test performed at:[facility] [address] [place] [address] Chloride molar conc 103 mmol/L Normal 98-107 Compr ehensive Internal Medicine Work Phone: Comment on above: Test performed at:[facility] [address] [place] [address] CO2 molar conc 30.0 mmol/L Normal 21.0-32.0 Comprehen sive Internal Medicine Work Phone: Comment on above: Test performed at:[facility] [address] [place] [address] Creatinine mass conc 0.8 mg/dL Normal 0.6-1.0 Comp rehensive Internal Medicine Work Phone: Comment on above: Test performed at:[facility] [address] [place] [address] GFR/1.73 sq M predicted among non-blacks MDRD vol rate/area (S/P/Bld) 79 mL/min/{1.73_m2} Normal Comp rehensive Internal Medicine Work Phone: Comment on above: Test performed at:[facility] [address] [place] [address] Glucose mass conc 97 mg/dL Normal 70-110 Compreh ensive Internal Medicine Work Phone: Comment on above: Test performed at:[facility] [address] [place] [address] Potassium molar conc 3.9 mmol/L Normal 3.5-5.1 Comp rehensive Internal Medicine Work Phone: Comment on above: Test performed at:[facility] [address] [place] [address] Sodium molar conc 135 mmol/L Abnormal 136-145 Compreh ensive Internal Medicine Work Phone: Comment on above: Test performed at:[facility] [address] [place], [place] [address] Urea nitrogen mass conc 12 mg/dL Normal 7-18 C omprehensive Internal Medicine Work Phone: Comment on above: Test performed at:[facility] [address] [place] [address] Basic Metabolic Profile (BMP) 2 1 Abnormal 5-15 Comprehensive Internal Medicine Work Phone: Comment on above: Test performed at:[facility] [address] [place] [address] Basic Metabolic Profile (BMP) 15.0 {RATIO} Normal 10-20 Comprehensive Internal Medicine Work Phone: Comment on above: Test performed at:[facility] [address] [place] [address] Basic Metabolic Profile (BMP) 96 mL/min Normal Comprehensive [facility] Medicine Work Phone: Comment on above: Test performed at:[facility] [address] [place] [address] CBC-Complete Blood Cnt No Di ffOrdered By: Planner Intern on 04-13-2014 Erythrocyte distribution width Ratio (RBC) 12.5 % Normal 11.6-14.6 [facility] Medicine Work Phone: Comment on above: Test performed at:[facility] [address] [place] [address] Hematocrit Volume Fraction (Bld) 39.3 % Normal 37-47 Comprehensive Internal Medicine Work Phone: Comment on above: Test performed at:[facility] [address] [place] [address] Hemoglobin mass conc (Bld) 12.8 g/dL Normal 12.0-15.0 Comprehensive Internal Medicine Work Phone: Comment on above: Test performed at:[facility] [address] [place] [address] MCH Entitic mass (RBC) 29.2 pg Normal 27.0-32.0 Co mprehensive Internal Medicine Work Phone: Comment on above: Test performed at:[facility] [address] [place] [address] MCHC mass conc (RBC) 32.6 {g/gl} Normal 32-36 Com prehensive Internal Medicine Work Phone: Comment on above: Test performed at:[facility] [address] [place] [address] MCV Entitic volume (RBC) 89.7 fL Normal 81-99 Comprehensive Internal Medicine Work Phone: Comment on above: Test performed at:[facility] [address] [place] [address] Platelet mean volume Entitic volume (Bld) 11.2 fL Normal 6.2-12.0 Comprehensi ve Internal Medicine Work Phone: Comment on above: Test performed at:[facility] [address] [place] [address] Platelets #/vol (Bld) 284 10*3/uL Normal 150-450 [facility] Work Phone: Comment on above: Test performed at:[facility] [address] [place] [address] RBC #/vol (Bld) 4.38 {M/mm3} Normal 4.2-5.4 Compreh ensive Internal Medicine Work Phone: Comment on above: Test performed at:[facility] [address] [place] [address] WBC #/vol (Bld) 8.2 10*3/uL Normal 4.4-11.0 Comprehe nsive Internal Medicine Work Phone: Comment on above: Test performed at:[facility] [address] [place] [address] CBC-Complete Blood Cnt No Diff 40.1 fL Normal 35.1-43.9 Comprehensive Internal Medicine Work Phone: Comment on above: Test performed at:[facility] [address] [place], [place] [address] Hemoglobin Glyclated (HGB A1 C) (65904)Ordered By: Planner Intern on 03-19-2014 Hemoglobin A1c/Hemoglobin.total mass fraction (Bld) 5.9 % Abnormal 4.8-5.6 Comprehensiv e Internal Medicine Work Phone: Comment on above: . Increased risk for diabetes: 5.7 - 6.4 Diabetes: >6.4 Glycemic control for adults with diabetes: <7.0 PATIENT NOT FASTINGP ERFORMED BY: LabCoSt. Joseph's Wayne HospitalQqmejp0220 [facility] [id number] Information: [id number] MIACREOrdered By: System Man ager on 03-10-2014 Creatinine mass conc 5.8 {mg/g_CRE} Normal [facility] Work Phone: MIACRE 8.2 mg/L Normal [facility] Work Phone: MIACRE 140.5 mg/dL Normal [facility] Work Phone: UAOrdered By: Planner Intern on 03-10-2014 UA Negative Normal [facility] Work Phone: Comment on above: How was Urine Obtain ed? CLEAN CATCH UA 25 /ul Abnormal [facility] Work Phone: Comment on above: How was Urine Obtain ed? CLEAN CATCH UA 10 /ul Abnormal [facility] Work Phone: Comment on above: How was Urine Obtain ed? CLEAN CATCH UA Normal Normal [facility] Work Phone: Comment on above: How was Urine Obtain ed? CLEAN CATCH UA 6.0 1 Normal 5.0 - 8.0 [facility] Medicine Work Phone: Comment on above: How was Urine Obtain ed? CLEAN CATCH UA 1.020 1 Normal 1.002-1.03 0 [facility] Work Phone: Comment on above: How was Urine Obtain ed? CLEAN CATCH UA Clear Normal [facility] Work Phone: Comment on above: How was Urine Obtain ed? CLEAN CATCH UA Yellow Normal [facility] Work Phone: Comment on above: How was Urine Obtain ed? CLEAN CATCH AMAOrdered By: System Manage r on 03-03-2014 AMA 62.4 {Units} Abnormal 0.0-20.0 Comprehensiv e Internal Medicine Work Phone: Comment on above: Negative 0.0 - 20.0E quivocal 20.1 - 24.9Positive >24.9Mitochondrial (M2) Antibodies are found in 90-96% ofpatients with primary biliary cirrhosis.Performed at: [facility] [address] [id number] Director: Eddie Mclaughlin PhD, Phone: [phone] Has pt arrived? Y AMYOrdered By: System Cell Therapy r on 03-03-2014 ROD 58 U/L Normal 25-115 [facility] Medicine Work Phone: Comment on above: Has pt arrived? YHas pt arrived? YHas pt arrived? Y ASMAOrdered By: System Manag er on 03-03-2014 ASMA 21 {Units} Abnormal 0-19 [facility] Work Phone: Comment on above: Negative 0 - 19Weak positive 20 - 30Moderate to strong positive >30Actin Antibodies are found in 52-85% of patients withautoimmune hepatitis or chronic active hepatitis andin 22% of patients with primary biliary cirrhosis.Performed at: [facility] [address] [id number] Director: Eddie Mclaughlin PhD, Phone: [phone] Has pt arrived? Y CMPOrdered By: Mint r on 03-03-2014 Albumin mass conc 3.5 g/dL Normal 3.4-5.0 Compreh ensive Internal Medicine Work Phone: Albumin/Globulin mass ratio 0.8 {RATIO} Abnormal 0.9-2.4 Comprehensive Internal Medicine Work Phone: ALP enzyme act/vol 247 U/L Abnormal 50-136 Compre hensive Internal Medicine Work Phone: ALT enzyme act/vol 51 U/L Normal 12-78 Compre [facility] Internal Medicine Work Phone: AST enzyme act/vol 32 U/L Normal 15-37 Compre [facility] Work Phone: Bilirubin mass conc 0.40 mg/dL Normal 0.00-4.00 Compr ehensive Internal Medicine Work Phone: Calcium mass conc 9.4 mg/dL Normal 8.5-10.1 Compreh ensive Internal Medicine Work Phone: Chloride molar conc 104 mmol/L Normal 98-107 Compr ensive Internal Medicine Work Phone: CO2 molar conc 24.0 mmol/L Normal 21.0-32.0 Comprehen [facility] Internal [facility] Work Phone: Creatinine mass conc 0.8 mg/dL Normal 0.6-1.[address] Work Phone: GFR/1.73 sq M predicted among non-blacks MDRD vol rate/area (S/P/Bld) 79 mL/min/{1.73_m2} Normal Comp rehensive Internal Medicine Work Phone: Globulin mass conc (S) 4.6 g/dL Abnormal 2.7-4.2 Co mprehensive Internal Medicine Work Phone: Glucose mass conc 131 mg/dL Abnormal 70-110 Compreh ensive Internal Medicine Work Phone: Comment on above: Fasting Glucose resu lt greater than or equal to 126 mg/dLsuggests DIABETES MELLITUS per A.D.A. criteria. Potassium molar conc 4.0 mmol/L Normal 3.5-5.1 Comp rehensive Internal Medicine Work Phone: Protein mass conc 8.1 g/dL Normal 6.4-8.2 Compreh ensive Internal Medicine Work Phone: Sodium molar conc 135 mmol/L Abnormal 136-145 Compreh ensive Internal Medicine Work Phone: Urea nitrogen mass conc 17 mg/dL Normal 7-[address]ensive Internal Medicine Work Phone: Urea nitrogen/Creatinine mass ratio 21.3 {RATIO} Abnormal 10-20 Comprehensive Internal Medicine Work Phone: CMP 96 mL/min Normal [facility] Work Phone: CMP 7 1 Normal 5-15 [facility] Work Phone: LIPASEOrdered By: System Lizandro houstonr on 03-03-2014 LIPASE 204 U/L Normal 70-290 [facility] Internal Medicine Work Phone: Comment on above: Has pt arrived? YHas pt arrived? YHas pt arrived? Y LIPIDOrdered By: System Lisa joy on 03-03-2014 Cholesterol in HDL mass conc 52 mg/dL Normal [facility] Work Phone: Comment on above: Reference RangeHDL < 40 mg/dL Low HDL CholesterolHDL >or= 60 mg/dL High HDL Cholesterol Cholesterol in LDL mass conc 124 mg/dL Normal 0-130 [facility] Medicine Work Phone: Cholesterol mass conc 197 mg/dL Normal Com prehensive Internal Medicine Work Phone: Comment on above: <200 mg/dL Desirable 200-240 mg/dL Borderline>240 mg/dL High Risk Triglyceride mass conc 106 mg/dL Normal 0-199 Co mprehensive Internal Medicine Work Phone: Comment on above: Serum Triglycerides Reference IntervalNormal <150 mg/dLBorderline high 150 - 199 mg/dLHigh 200 - 499 mg/dLVery High > or = 500 mg/dL LIPID 21 mg/dL Normal 5-40 Comprehensive Internal Medicine Work Phone: TSHOrdered By: System Manage r on 03-03-2014 Thyrotropin Qn 0.46 {uIU/mL} Normal 0.358-3.74 Compreh ensive Internal Medicine Work Phone: Comment on above: Has pt arrived? YHas pt arrived? YHas pt arrived? Y Thin prep Pap ([id number])Ordered By: Planner Intern on 11-30-2013 Microscopic observation Other stain Nom (Unsp spec) . Normal [facility] Work Phone: Comment on above: Source.............C ervical;EndocervicalNo. of containers..01 CYTYC Thin Prep VialPATIENT NOT FASTINGPERFORMED BY: [facility] [address] [id number] Information: [id number] Pathology report final diagnosis Narrative SPRCS Normal Comprehensiv e Internal Medicine Work Phone: Comment on above: NEGATIVE FOR INTRAEP ITHELIAL LESION AND MALIGNANCY.Satisfactory for evaluation. Endocervical and/or squamous metaplasticcells (endocervical component) are present.V72.31 ; Routine gynecological examinationRachel Paddy Brooch And Bracelet Maker (ASCP) Source.............C ervical;EndocervicalNo. of containers..01 CYTYC Thin Prep VialPATIENT NOT FASTINGPERFORMED BY: 1[address] [id number] Information: [id number] Thin prep Pap ([id number]) PAPSMR Normal [facility] prehensive Internal Medicine Work Phone: Comment on above: The Pap smear is a s creening test designed to aid in the detection ofpremalignant and malignant conditions of the uterine cervix. It is not adiagnostic procedure and should not be used as the sole means of detectingcervical cancer. Both false-positive and false-negative reports do occur. .This liquid based ThinPrep(R) pap test was screened with theuse of an image guided system.The HPV DNA reflex criteria were not met with this specimen resulttherefore, no HPV testing was performed. . Source.............C ervical;EndocervicalNo. of containers..01 CYTYC Thin Prep VialPATIENT NOT FASTINGPERFORMED BY: [facility] [address] [id number] Information: [id number]-[id number] (821 05)Ordered By: Planner Intern on 11-18-2013 AFP.tumor marker mass conc 3.6 ng/mL Normal 0.0-8.3 [facility] Medicine Work Phone: Comment on above: Jesse ECLIA methodol ogy PATIENT NOT FASTINGP ERFORMED BY: LUIS F [facility]Do[facility] Ylvdvl1502 [facility] [id number] HEPATIC FUNCTION PANEL (8007 6)Ordered By: Planner Intern on 11-18-2013 Bilirubin.direct mass conc 0.11 mg/dL Normal 0.00-0.40 [facility] Medicine Work Phone: Comment on above: PATIENT NOT FASTINGP ERFORMED BY: LabCoSt. Joseph's Wayne HospitalSshqvr6839 [facility] [id number] Metabolic Panel, Comprehensi ve (98033)Ordered By: Planner Intern on 11-18-2013 Albumin mass conc 3.9 g/dL Normal 3.5-5.[address] Internal Medicine Work Phone: Comment on above: PATIENT NOT FASTINGP ERFORMED BY: LabAsp[facility]6370 [facility] [id number] Information: [id number] Albumin/Globulin mass ratio 1.3 {ratio} Normal 1.1-2.5 [facility] Medicine Work Phone: Comment on above: PATIENT NOT FASTINGP ERFORMED BY: LUIS F [facility]Co Hpbmgm5769 [facility] [id number] Information: [id number] ALP enzyme act/vol 174 [iU]/L Abnormal 39-117 [facility] Internal Medicine Work Phone: Comment on above: PATIENT NOT FASTINGP ERFORMED BY: [facility]Do[facility] Wzigle7654 [facility] [id number] Information: [id number] ALT enzyme act/vol 29 [iU]/L Normal 0-[address] [facility] Internal Medicine Work Phone: Comment on above: PATIENT NOT FASTINGP ERFORMED BY: [facility]Co Wdvdbq1583 [facility] [id number] Information: [id number] AST enzyme act/vol 32 [iU]/L Normal 0-40 [facility] Internal Medicine Work Phone: Comment on above: PATIENT NOT FASTINGP ERFORMED BY: LUIS F [facility] Lxvyxm0[address] [place] [id number] Information: [id number] Bilirubin mass conc 0.3 mg/dL Normal 0.0-1.2 Compr ehensive Internal Medicine Work Phone: Comment on above: PATIENT NOT FASTINGP ERFORMED BY: LUIS F [facility] Elrqtx[address] [facility] [place] [id number] Information: [id number] Calcium mass conc 9.2 mg/dL Normal 8.7-10.2 Compreh ensive Internal Medicine Work Phone: Comment on above: PATIENT NOT FASTINGP ERFORMED BY: LUIS F LabCobushra ByrdAvmzsy7007 [address] [facility] [place] [id number] Information: [id number] Chloride molar conc 102 mmol/L Normal 97-108 Compr ensive Internal Medicine Work Phone: Comment on above: PATIENT NOT FASTINGP ERFORMED BY: LUIS F [facility] Quhplo4234 [address] [facility] [place] [id number] Information: [id number] CO2 molar conc 24 mmol/L Normal 18-29 Comprehens leda Internal Medicine Work Phone: Comment on above: PATIENT NOT FASTINGP ERFORMED BY: [facility] Cgdgdl8082 [facility] [id number] Information: [id number] Creatinine mass conc 0.75 mg/dL Normal 0.57-1.[address] Internal Medicine Work Phone: Comment on above: PATIENT NOT FASTINGP ERFORMED BY: [facility] Cfymhv7558 [address] [facility] [place] [id number] Information: [id number] GFR/1.73 sq M predicted among blacks CKD-EPI vol rate/area (S/P/Bld) 105 mL/min/1.73 Normal Comprehe nsive Internal Medicine Work Phone: Comment on above: PATIENT NOT FASTINGP ERFORMED BY: CB [facility] Nvpbdr1209 [facility] [id number] Information: [id number] GFR/1.73 sq M predicted among non-blacks CKD-EPI vol rate/area (S/P/Bld) 91 mL/min/1.73 Normal [facility] Medicine Work Phone: Comment on above: PATIENT NOT FASTINGP ERFORMED BY: LUIS F Cohen Wswriq9673 [facility] [id number] Information: [id number] Globulin mass conc (S) 3.1 g/dL Normal 1.5-4.5 Co mprehensive Internal Medicine Work Phone: Comment on above: PATIENT NOT FASTINGP ERFORMED BY: LUIS F Cohen Jbtaxr3861 [facility] [id number] Information: [id number] Glucose mass conc 84 mg/dL Normal 65-99 Compreh ensive Internal Medicine Work Phone: Comment on above: PATIENT NOT FASTINGP ERFORMED BY: LUIS F Cohen Eqvoep4462 [facility] [id number] Information: [id number] Potassium molar conc 4.0 mmol/L Normal 3.5-5.2 Comp rehensive Internal Medicine Work Phone: Comment on above: PATIENT NOT FASTINGP ERFORMED BY: LUIS F MichaelAspirus [facility] Hospital6370 [facility] [id number] Information: [id number] Protein mass conc 7.0 g/dL Normal 6.0-8.5 Compreh ensive Internal Medicine Work Phone: Comment on above: PATIENT NOT FASTINGP ERFORMED BY: LUIS F [facility] Hzsevr6128 [facility] [id number] Information: [id number] Sodium molar conc 137 mmol/L Normal 134-144 Compreh ensive Internal Medicine Work Phone: Comment on above: PATIENT NOT FASTINGP ERFORMED BY: LabLawrence V[place] 1640770 [facility] [id number] Information: [id number] Urea nitrogen mass conc 18 mg/dL Normal 6-[address]ensive Internal Medicine Work Phone: Comment on above: PATIENT NOT FASTINGP ERFORMED BY: [facility]6370 [facility] [id number] Information: [id number] Urea nitrogen/Creatinine mass ratio 24 mg/mg Abnormal 9- Comprehensive Internal Medicine Work Phone: Comment on above: PATIENT NOT FASTINGP ERFORMED BY: [address] [id number] Information: [id number] AMYLASE (66416)Ordered By: S ystem Sales And Service Consultant on 11-02-2013 Amylase enzyme act/vol 61 U/L Normal 31-124 Co mprensive Internal Medicine Work Phone: Comment on above: PATIENT NOT FASTINGP ERFORMED BY: [facility]6370 [facility] [id number] ANTI-NONA-1 [id number] (86124)Orde red By: Planner Intern on 11-02-2013 Nona-1 extractable nuclear Ab Qn (S) <0.2 Normal 0.0-0.9 [facility] Work Phone: Comment on above: PATIENT NOT FASTINGP ERFORMED BY: [facility]6370 [facility] [id number] ANTI-Sm (ANTI REED ANTIBODY ) (13210)Ordered By: Planner Intern on 11-02-2013 Ribonucleoprotein extractable nuclear Ab Qn (S) 0.5 {AI} Normal 0.0-0.9 [facility] Work Phone: Comment on above: PATIENT NOT FASTINGP ERFORMED BY: [facility]6370 [facility] [id number] Reed extractable nuclear Ab Qn (S) <0.2 Normal 0.0-0.9 [facility] Work Phone: Comment on above: PATIENT NOT FASTINGP ERFORMED BY: [employer] Rhlpkh9495 [address] [facility] [place] [id number] ASM (ANTI SMOOTH MUSCLE ANTI BODY) (65301)Ordered By: Planner Intern on 11-02-2013 Actin IgG Qn 13 {Units} Normal 0-19 Comprehensiv e Internal Medicine Work Phone: Comment on above: Negative 0 - 19 Weak positive 20 - 30 Moderate to strong positive >30 . Actin Antibodies are found in 52-85% of patients with autoimmune hepatitis or chronic active hepatitis and in 22% of patients with primary biliary cirrhosis. PATIENT NOT FASTINGP ERFORMED BY: [employer]CoN[employer] Jvohmd[address] Iglu.comEcu Health Edge[facility] Hospitalin [place] [id number] LIPASE (36310)Ordered By: DeRev stem Sales And Service Consultant on 11-02-2013 Lipase enzyme act/vol 45 U/L Normal 0-59 [facility] prehensive Internal Medicine Work Phone: Comment on above: PATIENT NOT FASTINGP ERFORMED BY: [employer] [facility] Lscoou3993 [address] [facility] [place] [id number] TSH (THYROID STIMULATING HOR TIM) (12335)Ordered By: Planner Intern on 11-02-2013 Thyrotropin Qn 1.260 {uIU/mL} Normal 0.450-4.50 0 [facility] Work Phone: Comment on above: PATIENT NOT FASTINGP ERFORMED BY: [employer] Ibuzom9562 [address] Iglu.comNov[facility] [id number] Information: [id number] GGTOrdered By: System Manage r on 10-15-2013 Gamma glutamyl transferase enzyme act/vol 257 [iU]/L Abnormal 0-60 [facility] Work Phone: Comment on above: PATIENT WAS FASTINGP ERFORMED BY: [employer] [facility] Dccejr9866 [address] [facility] [place] [id number] Information: [id number] Written AuthorizationOrdered By: Planner Intern on 10-15-2013 Written Authorization WAR Normal Com prehensive Internal Medicine Work Phone: Comment on above: Written Authorizatio n Received.Authorization received from [facility] AYALA [id number] by Micki Reynolds PATIENT WAS FASTINGP ERFORMED BY: LabCoSt. Joseph's Wayne HospitalUfbawu4308 [facility] [id number] CBC WITH MANUAL DIFF ([id number]) Ordered By: Planner Intern on 10-14-2013 Basophils #/vol (Bld) 0.1 {x10E3/uL} Normal 0.0-0.2 [facility] Work Phone: Comment on above: PATIENT WAS FASTINGP ERFORMED BY: LabCoSt. Joseph's [facility] HospitalRscghr1697 [facility] [id number] Information: [id number] Basophils/100 WBC (Bld) 1 % Normal 0-3 C omprehensive Internal Medicine Work Phone: Comment on above: PATIENT WAS FASTINGP ERFORMED BY: LabCoSt. Joseph's Wayne HospitalQzepfn8562 [facility] [id number] Information: [id number] Eosinophils #/vol (Bld) 0.2 {x10E3/uL} Normal 0.0-0.4 [facility] Work Phone: Comment on above: PATIENT WAS FASTINGP ERFORMED BY: LabCoSt. Joseph's Wayne HospitalVvcodh5476 [facility] [id number] Information: [id number] Eosinophils/100 WBC (Bld) 3 % Normal 0-5 [facility] Work Phone: Comment on above: PATIENT WAS FASTINGP ERFORMED BY: LabCo Nizwcd0362 [facility] [id number] Information: [id number] Erythrocyte distribution width Ratio (RBC) 13.1 % Normal 12.3-15.4 [facility] Work Phone: Comment on above: PATIENT WAS FASTINGP ERFORMED BY: LabCo Thfuap6023 [facility] [id number] Information: [id number] Hematocrit Volume Fraction (Bld) 38.2 % Normal 34.0-46.6 [facility] Work Phone: Comment on above: PATIENT WAS FASTINGP ERFORMED BY: [place] 8722470 [facility] [id number] Information: [id number] Hemoglobin mass conc (Bld) 12.8 g/dL Normal 11.1-15.9 [facility] Work Phone: Comment on above: PATIENT WAS FASTINGP ERFORMED BY: [address] [id number] Information: [id number],[id number] Immature granulocytes #/vol (Bld) 0.0 {x10E3/uL} Normal 0.0-0.1 [facility] Work Phone: Comment on above: PATIENT WAS FASTINGP ERFORMED BY: [address] [id number] Information: [id number] Immature granulocytes/100 WBC (Bld) 0 % Normal 0-2 [facility] Work Phone: Comment on above: PATIENT WAS FASTINGP ERFORMED BY: [address] [id number] Information: [id number] Lymphocytes #/vol (Bld) 1.8 {x10E3/uL} Normal 0.7-3.1 [facility] Work Phone: Comment on above: PATIENT WAS FASTINGP ERFORMED BY: [address] [id number] Information: 512341,[id number] Lymphocytes/100 WBC (Bld) 22 % Normal 14-46 [facility] Work Phone: Comment on above: PATIENT WAS FASTINGP ERFORMED BY: [address] [id number] Information: [id number] MCH Entitic mass (RBC) 29.9 pg Normal 26.6-33.0 Co [facility] Internal Medicine Work Phone: Comment on above: PATIENT WAS FASTINGP ERFORMED BY: [facility]6370 [facility] [id number] Information: [id number] MCHC mass conc (RBC) 33.5 g/dL Normal 31.5-35.7 [facility] Internal Medicine Work Phone: Comment on above: PATIENT WAS FASTINGP ERFORMED BY: [place] 8722470 [facility] [id number] Information: [id number] MCV Entitic volume (RBC) 89 fL Normal 79-97 [facility] Work Phone: Comment on above: PATIENT WAS FASTINGP ERFORMED BY: [address] [id number] Information: [id number] Monocytes #/vol (Bld) 0.5 {x10E3/uL} Normal 0.1-0.9 [facility] Work Phone: Comment on above: PATIENT WAS FASTINGP ERFORMED BY: [place] 8722470 [facility] [id number] Information: [id number] Monocytes/100 WBC (Bld) 6 % Normal 4-12 C [facility] Internal Medicine Work Phone: Comment on above: PATIENT WAS FASTINGP ERFORMED BY: [place] 8722470 [facility] [id number] Information: [id number] Neutrophils #/vol (Bld) 5.9 {x10E3/uL} Normal 1.4-7.0 [facility] Work Phone: Comment on above: PATIENT WAS FASTINGP ERFORMED BY: [place] 8722470 [facility] [id number] Information: [id number],[id number] Neutrophils/100 WBC (Bld) 68 % Normal 40-74 [facility] Work Phone: Comment on above: PATIENT WAS FASTINGP ERFORMED BY: [address] [id number] Information: [id number] Platelets #/vol (Bld) 283 {x10E3/uL} Normal 150-379 [facility] Work Phone: Comment on above: PATIENT WAS FASTINGP ERFORMED BY: [facility] F [facility]Do[facility] Kwjrfs3801 [facility] [id number] Information: [id number] RBC #/vol (Bld) 4.28 {x10E6/uL} Normal 3.77-5.28 [facility] Internal Medicine Work Phone: Comment on above: PATIENT WAS FASTINGP ERFORMED BY: LUIS F [facility]andaDo[facility] Cayzwt8967 [facility] [id number] Information: [id number] WBC #/vol (Bld) 8.5 {x10E3/uL} Normal 3.4-10.8 [facility] Internal Medicine Work Phone: Comment on above: PATIENT WAS FASTINGP ERFORMED BY: [facility] F [facility]andaDo[facility] Swuakr3849 [facility] [id number] Information: [id number] LIPID PANEL ([id number])Ordered B y: Planner Intern on 10-14-2013 Cholesterol in HDL mass conc 46 mg/dL Normal [facility] Work Phone: Comment on above: According to ATP-III Guidelines, HDL-C >59 mg/dL is considered anegative risk factor for CHD. PATIENT WAS FASTINGP ERFORMED BY: LUIS F FernandaAspirus Ironwood Hospital6370 [facility] [id number] Cholesterol in LDL mass conc 110 mg/dL Abnormal 0-99 [facility] Work Phone: Comment on above: PATIENT WAS FASTINGP ERFORMED BY: [facility]6370 [facility] [id number] Cholesterol in LDL/Cholesterol in HDL mass ratio 2.4 {ratio_units} Normal 0.0-3.2 [facility] Work Phone: Comment on above: PATIENT WAS FASTINGP ERFORMED BY: LUIS F [facility]in6[address] RoadDublin [place] [id number] Cholesterol in VLDL mass conc 31 mg/dL Normal 5-40 [facility] Work Phone: Comment on above: PATIENT WAS FASTINGP ERFORMED BY: LUIS F [facility] Bzyiao9459 [address] RoadDublin [place] [id number] Cholesterol mass conc 187 mg/dL Normal 100-199 Com prehensive Internal Medicine Work Phone: Comment on above: PATIENT WAS FASTINGP ERFORMED BY: LUIS F [facility] Tkuwvt2001 [address] Roadblin [place] [id number] Triglyceride mass conc 156 mg/dL Abnormal 0-149 Co mprehensive Internal Medicine Work Phone: Comment on above: PATIENT WAS FASTINGP ERFORMED BY: LUIS F [facility] Jgintg6731 [address] [facility] [place] [id number] METABOLIC PANEL, COMPREHENSI VE ([id number])Ordered By: Planner Intern on 10-14-2013 Albumin mass conc 4.0 g/dL Normal 3.5-5.5 Compreh [facility] Internal Medicine Work Phone: Comment on above: PATIENT WAS FASTINGP ERFORMED BY: LUIS F [facility] Vcfsgk0734 [address] [facility] [place] [id number] Albumin/Globulin mass ratio 1.4 {ratio} Normal 1.1-2.5 [facility] Work Phone: Comment on above: PATIENT WAS FASTINGP ERFORMED BY: [facility] Fckbdm5864 [address] [facility] [place] [id number] ALP enzyme act/vol 232 [iU]/L Abnormal 39-117 Compre [facility] Internal Medicine Work Phone: Comment on above: PATIENT WAS FASTINGP ERFORMED BY: LUIS F [facility] Hsyvcf2930 [address] [facility] [place] [id number] ALT enzyme act/vol 31 [iU]/L Normal 0-32 Compre [facility] Internal Medicine Work Phone: Comment on above: PATIENT WAS FASTINGP ERFORMED BY: LUIS F [facility] Rpcrwv9639 [address] [facility] [place] [id number] AST enzyme act/vol 31 [iU]/L Normal 0-40 Compre [facility] Internal Medicine Work Phone: Comment on above: PATIENT WAS FASTINGP ERFORMED BY: LUIS F LabCobushra Qxewtn3505 [address] [facility] [place] [id number] Bilirubin mass conc 0.5 mg/dL Normal 0.0-1.2 Compr ensive Internal Medicine Work Phone: Comment on above: PATIENT WAS FASTINGP ERFORMED BY: CB [facility] Pdayar9965 [address] [facility] [id number] Calcium mass conc 9.8 mg/dL Normal 8.7-10.2 Compreh [facility] Internal Medicine Work Phone: Comment on above: PATIENT WAS FASTINGP ERFORMED BY: [facility] Wfvuvf9805 [facility] [id number] Chloride molar conc 99 mmol/L Normal 97-108 Compr [facility] Internal Medicine Work Phone: Comment on above: PATIENT WAS FASTINGP ERFORMED BY: [facility] Psdlnf9615 [facility] [id number] CO2 molar conc 24 mmol/L Normal 18-29 Comprehens [facility] Internal Medicine Work Phone: Comment on above: PATIENT WAS FASTINGP ERFORMED BY: [facility] Lswpqn8837 [facility] [id number] Creatinine mass conc 0.67 mg/dL Normal 0.57-1.00 Comp [facility] Internal Medicine Work Phone: Comment on above: PATIENT WAS FASTINGP ERFORMED BY: [facility] Kkhlpa1210 [address] [facility] [id number] GFR/1.73 sq M predicted among blacks CKD-EPI vol rate/area (S/P/Bld) 115 mL/min/1.73 Normal Comprehe [facility] Internal Medicine Work Phone: Comment on above: PATIENT WAS FASTINGP ERFORMED BY: [facility] Tkhahj6215 [address] [facility] [id number] GFR/1.73 sq M predicted among non-blacks CKD-EPI vol rate/area (S/P/Bld) 100 mL/min/1.73 Normal [facility] Work Phone: Comment on above: PATIENT WAS FASTINGP ERFORMED BY: LUIS F [facility] Xjlrtm3471 [address] RoadDublin [place] [id number] Globulin mass conc (S) 2.9 g/dL Normal 1.5-4.5 Co mprehensive Internal Medicine Work Phone: Comment on above: PATIENT WAS FASTINGP ERFORMED BY: [facility] Adfsfr0671 [address] RoadEcu Health Edge[facility] Hospitalin [place] [id number] Glucose mass conc 99 mg/dL Normal 65-99 Compreh ensive Internal Medicine Work Phone: Comment on above: PATIENT WAS FASTINGP ERFORMED BY: LUIS F [facility] Uglssi3232 Uriarte RoadEcu Health Edgecombe Hospitalin [place] [id number] Potassium molar conc 4.6 mmol/L Normal 3.5-5.2 Comp rehensive Internal Medicine Work Phone: Comment on above: PATIENT WAS FASTINGP ERFORMED BY: [facility] Kenfhm6832 [address] [facility] [place] [id number] Protein mass conc 6.9 g/dL Normal 6.0-8.5 Compreh ensive Internal Medicine Work Phone: Comment on above: PATIENT WAS FASTINGP ERFORMED BY: LUIS F [facility] Hzfqrc2068 [address] [facility] [place] [id number] Sodium molar conc 138 mmol/L Normal 134-144 Compreh ensive Internal Medicine Work Phone: Comment on above: PATIENT WAS FASTINGP ERFORMED BY: [facility] Xslsqq5494 [address] [facility] [place] [id number] Urea nitrogen mass conc 12 mg/dL Normal 6-24 C omprehensive Internal Medicine Work Phone: Comment on above: PATIENT WAS FASTINGP ERFORMED BY: [facility] Uchtjv4893 [address] [facility] [place] [id number] Urea nitrogen/Creatinine mass ratio 18 mg/mg Normal 9-23 [facility] Work Phone: Comment on above: PATIENT WAS FASTINGP ERFORMED BY: [facility] Dlyiwy5402 [address] [facility]in [place] [id number] MICROALBUMINOrdered By: Nourish em Sales And Service Consultant on 10-14-2013 Albumin DL <= 20 mg/L mass conc (U) 11.4 ug/mL Normal 0.0-17.0 [facility] Work Phone: Comment on above: PATIENT WAS FASTINGP ERFORMED BY: [facility] Alqtfi3813 [address] RoadEcu Health Edge[facility] Hospitalin [place] [id number] Albumin/Creatinine mass ratio (U) 8.5 {mg/g_creat} Normal 0.0-30.0 [facility] Work Phone: Comment on above: PATIENT WAS FASTINGP ERFORMED BY: [facility] Cqerlc7802 [address] [facility] [place] [id number] Creatinine mass conc (U) 133.8 mg/dL Normal 15.0-278.0 [facility] Work Phone: Comment on above: PATIENT WAS FASTINGP ERFORMED BY: LabDo[facility] Dzbown8769 [facility] [id number] TSH ([id number])Ordered By: Nourish m Sales And Service Consultant on 10-14-2013 Thyrotropin Qn 1.690 {uIU/mL} Normal 0.450-4.50 0 [facility] Work Phone: Comment on above: PATIENT WAS FASTINGP ERFORMED BY: [facility] Igsdrb3147 [facility] [id number] SPINE, CERVICAL (ROUTINE)Ord ered By: Planner Intern on 10-11-2011 SPINE, CERVICAL (ROUTINE) See Note Normal [facility] Work Phone: Comment on above: PROCEDURE: MRI CERVI MONTSERRAT SPINE WITHOUT CONTRAST REASON FOR EXAM: Female, 51 years old. Right neck pain radiating totheright shoulder and arm for 8 weeks with numbness. TECHNIQUE: Standardized fat and water weighted pulse sequences wereobtained in the sagittal and axial planes. COMPARISON: Plain film cervical spine -- 08/29/11. FINDINGS:Normal foramen magnum and brainstem-cervical cord junction. There is nodemonstrated tonsillar ectopia. Normal craniovertebral junction. Normalanterior atlantoaxial articulation. Normal odontoid process. Normal cervical lordosis. Normal vertebral bodies and posterior osseouselements. C2-3: Disc desiccation, Normal disc height, no anterior endplatespondylosis, and posterior left pre-foraminal osteophyte disc complexmeasuring 2 mm (AP). Left greater than right apophyseal joint arthrosis,left uncovertebral arthrosis with mild left and normal right neuralforamina. Normal central canal (T2 axial series image 26). C3-4: Disc desiccation, Normal disc height, no anterior endplatespondylosis, and posterior spondylotic endplate change/ annular discbulging greater to the left. Apophyseal joint arthrosis, uncovertebralarthrosis with mild left greater than right noncompressive neuralforaminalnarrowing. Normal central canal (T2 axial series image 22). C4-5: Disc desiccation, minimal loss of disc height, anterior endplatespondylosis, and posterior spondylotic endplate change/annular discbulginggreatest bilaterally. Bilateral uncovertebral arthrosis, left greaterthanright apophyseal joint arthrosis with mild to moderate neural foraminalnarrowing without definite neural impingement. Normal central canal (T1and T2 axial series image 19 and 20). C5-6: Disc desiccation, minimal loss of disc height, anterior endplatespondylosis, posterior broad-based disc herniation protrusion typemeasuring 2.5 mm (AP) extending greater to the right of midline. Thereispossible impingement of the crossing right C6 nerve root. No significantuncovertebral or apophyseal joint arthrosis with mild to moderate medialright and minimal left neural foraminal narrowing with possible furtherneural impingement on the right. Normal central canal (T1 and T2 axialseries image 15 and 16, and T2 sagittal series image 8 and 9). C6-7: Slight disc desiccation, Normal disc height, minimal anteriorendplate spondylosis, and subtle posterior annular disc bulging. Nouncovertebral or apophyseal joint arthrosis with minimal noncompressiveleft neural foraminal narrowing and normal right neural foramen. Normalcentral canal (T2 axial series image 12). C7-T1: Normal endplates. Normal disc height and morphology. Normalbilateral uncovertebral and apophyseal joints. Normal central canal.Normal intervertebral neuroforamina with incidental 6-mm leftintraforaminal nerve root sleeve cyst (T1 and T2 axial series image 8). T1-2: Normal disc height and hydration, no anterior endplate spondylosisand no posterior annular disc bulge/ protrusion. Facet arthrosis andnormal neural foramina. Normal central canal (T2 axial series image 5). T2-3, T3-4, T4-5: Sagittal imaging only. Normal disc height andhydration,anterior endplate spondylosis at T4-5, and no posterior annular discbulge/protrusion. Minor facet arthrosis and normal neural foramina.Normal central canal (T2 sagittal series image 7). Normal cervical /visualized upper thoracic cord. There are bilateral multiple chain not enlarged cervical lymph nodesnoted. There is minimal mucosal inflammatory disease in the maxillary andethmoidair cells. There is a mild empty sella present. IMPRESSION: Multiple level cervical and upper thoracic degenerative change asdescribedabove. Significant findings include: C2-3 left pre-foraminal small noncompressive osteophyte disc complex. C3-4 spondylotic endplate change such annular disc bulging greater to theleft. C4-5 spondylotic endplate change/ annular disc bulging greatestbilaterally, bilateral noncompressive neural foraminal narrowing. C5-6 broad-based disc protrusion greatest to the right of midline,possibleimpingement of the crossing/exiting right C6 nerve root. C6-7 subtle annular disc bulging. C7-T1 incidental left intraforaminal nerve root sleeve cyst. Multiple chain nonenlarged cervical lymph nodes noted. Minor mucosal fluid or disease in the axillary and ethmoid air cells. Empty sella. Signed:Lila Chaudhary M.D.October 11, 2011 at 3:21:03 PM [phone] Signed LL/LL If you are the referring physician and would like to consult with theradiologist who provided this interpretation, please contact Lila Zafar M.D. at [phone]. If this radiologist is unavailable, you willbe directed to another radiologist to assist. If you are a patient with a question regarding this report, pleasecontactyour referring physician directly. Professional Interpretation Provided By: [employer], Phone , Dictated on 10/11/11 0923 by FATMATA NARAYAN,ANNAATranscribed on 10/11/112219 by ITS IMPORTSign by LILA CHAUDHARY MD on 10/11/112220 Sign by: LILA CHAUDHARY MD CERV SPINE,MIN 4 VIEWSOrdere d By: Planner Intern on 08-29-2011 CERV SPINE,MIN 4 VIEWS See Note Normal Co mprensive Internal Medicine Work Phone: Comment on above: PROCEDURE: X-RAY - C ERVICAL SPINE REASON FOR EXAM: Female, 51 years old. Neck pain and right arm painwithnumbness. TECHNIQUE: Six views of the cervical spine were obtained. COMPARISON: None FINDINGS:Normal craniovertebral junction. Normal anterior atlantoaxialarticulation. Normal odontoid process. Normal cervical lordosis. Normal vertebral bodies and posterior osseouselements. There is a mild degree of disk space narrowing at the C5-C6 level.Normalvisualized intervertebral neuroforamina. Normal visualized soft tissue structures. IMPRESSION:Mild degree of disk space narrowing at the C5-C6 level. Signed:Wil Arora M.D.August 30, 2011 at 12:45:06 PM EDTElectronically Signed GP/GP Professional Interpretation Provided By: [facility] [employer], , To consult with a radiologist regarding this report, please call our [id number] line @ Dictated on 08/29/11 1649 by Adam NARAYAN,Darienribed on 08/30/11 1249 by ITS IMPORTSign by Wil Arora MD on 08/30/11 1250 Sign by: Wil Arora MD Systemic Lupus Profile ([id number])Ordered By: Planner Intern on 11-10-2010 Chromatin Ab Qn <0.2 Normal 0.0-0.9 Comprehen [facility] Internal Medicine Work Phone: Comment on above: PATIENT NOT FASTINGP ERFORMED BY: LUIS F yBrdlin6370 [facility] [id number] Information: [id number] DNA double strand Ab Qn (S) 17 {IU/mL} Abnormal 0-9 [facility] Work Phone: Comment on above: Negative <5 Equivoca l 5 - 9 Positive >9 PATIENT NOT FASTINGP ERFORMED BY: LUIS F Byrdlin6370 [facility] [id number] Information: [id number] Rheumatoid factor Qn 7.0 {IU/mL} Normal 0.0-13.9 [facility] Internal Medicine Work Phone: Comment on above: PATIENT NOT FASTINGP ERFORMED BY: LUIS F Byrdlin6370 [facility] [id number] Information: [id number] Ribonucleoprotein extractable nuclear Ab Qn (S) 0.4 {AI} Normal 0.0-0.9 [facility] Work Phone: Comment on above: PATIENT NOT FASTINGP ERFORMED BY: LUIS F Cohen Dkzhdz4218 [facility] [id number] Information: [id number] Sjogrens syndrome-A extractable nuclear Ab Qn (S) <0.2 Normal 0.0-0.9 [facility] Work Phone: Comment on above: PATIENT NOT FASTINGP ERFORMED BY: LUIS F CohenChristopher Ville 4321970 [facility] [id number] Information: [id number] Sjogrens syndrome-B extractable nuclear Ab Qn (S) <0.2 Normal 0.0-0.9 [facility] Work Phone: Comment on above: PATIENT NOT FASTINGP ERFORMED BY: LUIS F Byrdlin6370 [facility] [id number] Information: [id number] Reed extractable nuclear Ab Qn (S) <0.2 Normal 0.0-0.9 [facility] Work Phone: Comment on above: PATIENT NOT FASTINGP ERFORMED BY: [place] 8722470 [facility] [id number] Information: [id number] Antinuclear Antibodies Direc tOrdered By: Planner Intern on 10-10-2010 Nuclear Ab Ql (S) Positive Abnormal Compreh ensive Internal Medicine Work Phone: Comment on above: PATIENT WAS FASTINGP ERFORMED BY: [place] 8722470 [facility] [id number] BY: [address] [id number] C-Reactive Protein, QuantOrd ered By: Planner Intern on 10-10-2010 CRP mass conc 3.8 mg/L Normal 0.0-4.9 Comprehensi ve Internal Medicine Work Phone: Comment on above: PATIENT WAS FASTINGP ERFORMED BY: [place] 8722470 [facility] [id number] BY: [address] [id number] CBC With Differential/Platel etOrdered By: Planner Intern on 10-10-2010 Basophils #/vol (Bld) 0.0 {x10E3/uL} Normal 0.0-0.2 [facility] Work Phone: Comment on above: PATIENT WAS FASTINGP ERFORMED BY: LabAsp[facility]6370 [facility] [id number] BY: [address] [id number] Basophils/100 WBC (Bld) 1 % Normal 0-3 C omprehensive Internal Medicine Work Phone: Comment on above: PATIENT WAS FASTINGP ERFORMED BY: [place] 8722470 [facility] [id number] BY: [address] [id number] Eosinophils #/vol (Bld) 0.2 {x10E3/uL} Normal 0.0-0.4 [facility] Work Phone: Comment on above: PATIENT WAS FASTINGP ERFORMED BY: [facility] Ojcxpr9229 [facility] [id number] BY: [address] [id number] Eosinophils/100 WBC (Bld) 3 % Normal 0-7 [facility] Work Phone: Comment on above: PATIENT WAS FASTINGP ERFORMED BY: [facility] Czfsbu5187 [facility] [id number] BY: [address] [id number] Erythrocyte distribution width Ratio (RBC) 14.7 % Normal 11.7-15.0 [facility] Work Phone: Comment on above: PATIENT WAS FASTINGP ERFORMED BY: [facility] Efmlwu8705 [facility] [id number] BY: Lab[address] [id number] Hematocrit Volume Fraction (Bld) 36.6 % Normal 34.0-44.0 [facility] Work Phone: Comment on above: PATIENT WAS FASTINGP ERFORMED BY: [facility] Poaplm2628 [facility] [facility] [id number] BY: [address] [id number] Hemoglobin mass conc (Bld) 11.9 g/dL Normal 11.5-15.0 [facility] Work Phone: Comment on above: PATIENT WAS FASTINGP ERFORMED BY: [facility] Elxbwz2840 [facility] [id number] BY: [address] [id number] Immature granulocytes #/vol (Bld) 0.0 {x10E3/uL} Normal 0.0-0.1 [facility] Work Phone: Comment on above: PATIENT WAS FASTINGP ERFORMED BY: LUIS F [facility] Fjlyar4611 [facility] [id number] BY: [address] [id number] Immature granulocytes/100 WBC (Bld) 0 % Normal 0-2 [facility] Work Phone: Comment on above: Please note refere nce interval change PATIENT WAS FASTINGP ERFORMED BY: LUIS F [facility] Oprprr1802 [facility] [id number] BY: LabCo[address] [id number] Lymphocytes #/vol (Bld) 2.2 {x10E3/uL} Normal 0.7-4.5 [facility] Work Phone: Comment on above: PATIENT WAS FASTINGP ERFORMED BY: LUIS F [facility] Chhvow0317 [facility] [id number] BY: [address] [id number] Lymphocytes/100 WBC (Bld) 30 % Normal 14-46 [facility] Work Phone: Comment on above: PATIENT WAS FASTINGP ERFORMED BY: LUIS F [facility] Vlpahj8344 [facility] [id number] BY: [address] [id number] MCH Entitic mass (RBC) 27.4 pg Normal 27.0-34.0 [facility] Internal Medicine Work Phone: Comment on above: PATIENT WAS FASTINGP ERFORMED BY: LUIS F [facility] Tnouug2255 [facility] [id number] BY: [address] [id number] MCHC mass conc (RBC) 32.5 g/dL Normal 32.0-36.0 [facility] Internal Medicine Work Phone: Comment on above: PATIENT WAS FASTINGP ERFORMED BY: LUIS F [facility] Qxjlid3924 [facility] [id number] BY: [address] [id number] MCV Entitic volume (RBC) 84 fL Normal 80-98 [facility] Work Phone: Comment on above: PATIENT WAS FASTINGP ERFORMED BY: LUIS F [facility] Uoihho9789 [address] [facility] [id number] BY: LabCo[address] [id number] Monocytes #/vol (Bld) 0.6 {x10E3/uL} Normal 0.1-1.0 [facility] Work Phone: Comment on above: PATIENT WAS FASTINGP ERFORMED BY: [facility] Asphjc4333 [address] [facility] [id number] BY: [address] [id number] Monocytes/100 WBC (Bld) 8 % Normal 4-13 C omprehensive Internal Medicine Work Phone: Comment on above: PATIENT WAS FASTINGP ERFORMED BY: LUIS F [facility] Plnasz9050 [facility] [id number] BY: [address] [id number] Neutrophils #/vol (Bld) 4.4 {x10E3/uL} Normal 1.8-7.8 [facility] Work Phone: Comment on above: PATIENT WAS FASTINGP ERFORMED BY: [facility] Wwkdma4043 [facility] [id number] BY: [address] [id number] Neutrophils/100 WBC (Bld) 58 % Normal 40-74 [facility] Work Phone: Comment on above: PATIENT WAS FASTINGP ERFORMED BY: [facility] Foracw4993 [facility] [id number] BY: [address] [place] [id number] Platelets #/vol (Bld) 286 {x10E3/uL} Normal 140-415 [facility] Work Phone: Comment on above: PATIENT WAS FASTINGP ERFORMED BY: [place] 8722470 [facility] [id number] BY: [address] [id number] RBC #/vol (Bld) 4.34 {x10E6/uL} Normal 3.80-5.10 Comp rehensive Internal Medicine Work Phone: Comment on above: PATIENT WAS FASTINGP ERFORMED BY: [place] 8722470 [facility] [id number] BY: [address] [id number] WBC #/vol (Bld) 7.3 {x10E3/uL} Normal 4.0-10.5 Compr ehensive Internal Medicine Work Phone: Comment on above: PATIENT WAS FASTINGP ERFORMED BY: [place] 8722470 [facility] [id number] BY: [address] [id number] CCP Antibodies IgG/IgAOrdere d By: Planner Intern on 10-10-2010 Cyclic citrullinated peptide IgA+IgG IA Qn 3 {units} Normal 0-19 Comprehens [facility] Internal Medicine Work Phone: Comment on above: Negative <20 Weak po sitive 20 - 39 Moderate positive 40 - 59 Strong positive >59 PATIENT WAS FASTINGP ERFORMED BY: [place] 8722470 [facility] [id number] BY: [address] [id number] Comp. Metabolic Panel (14)Or dered By: Planner Intern on 10-10-2010 Albumin mass conc 3.9 g/dL Normal 3.5-5.5 Compreh ensive Internal Medicine Work Phone: Comment on above: PATIENT WAS FASTINGP ERFORMED BY: CB [facility] Foawdo7959 [address]arte RoadDublin [place] [id number] BY: [address] [id number] Albumin/Globulin mass ratio 1.1 {ratio} Normal 1.1-2.5 [facility] Internal Medicine Work Phone: Comment on above: PATIENT WAS FASTINGP ERFORMED BY: CB [facility] Lmrdja0595 Uriarte RoadDublin [place] [id number] BY: [facility]Co[address] [id number] ALP enzyme act/vol 123 [iU]/L Normal 25-[address] [facility] Internal Medicine Work Phone: Comment on above: PATIENT WAS FASTINGP ERFORMED BY: CB [facility] Npxymc1855 Uriarte RoadDublin [place] [id number] BY: [address] [id number] ALT enzyme act/vol 26 [iU]/L Normal 0-[address] [facility] Internal Medicine Work Phone: Comment on above: PATIENT WAS FASTINGP ERFORMED BY: LUIS F [facility] Zvkrtt6624 [address]arte RoadDublin [place] [id number] BY: [address] [id number] AST enzyme act/vol 27 [iU]/L Normal 0-[address] [facility] Internal Medicine Work Phone: Comment on above: PATIENT WAS FASTINGP ERFORMED BY: CB [facility] Viqnhe7988 [address] RoadDublin [place] [id number] BY: [address] [id number] Bilirubin mass conc 0.3 mg/dL Normal 0.0-1.2 [facility] Internal Medicine Work Phone: Comment on above: PATIENT WAS FASTINGP ERFORMED BY: CB [facility] Qxygqz0507 Uriarte RoadDuin [place] [id number] BY: [address] [id number] Calcium mass conc 9.0 mg/dL Normal 8.7-10.2 Compreh ensive Internal Medicine Work Phone: Comment on above: PATIENT WAS FASTINGP ERFORMED BY: CB [facility] Ywojlq4520 [address] [facility] [id number] BY: [facility] [address] [id number] Chloride molar conc 103 mmol/L Normal 97-108 Compr ehensive Internal Medicine Work Phone: Comment on above: PATIENT WAS FASTINGP ERFORMED BY: CB [facility] Zayyhi6542 [address] [facility] [id number] BY: [facility] [address] [id number] CO2 molar conc 23 mmol/L Normal 20-32 [facility] Work Phone: Comment on above: PATIENT WAS FASTINGP ERFORMED BY: CB [facility] Eougmg3438 [facility] [id number] BY: [facility] [address] [id number] Creatinine mass conc 0.78 mg/dL Normal 0.57-1.00 Comp rehensive Internal Medicine Work Phone: Comment on above: PATIENT WAS FASTINGP ERFORMED BY: CB [facility] Kggntl8593 [facility] [id number] BY: [facility] [address] [id number] GFR/1.73 sq M predicted among blacks MDRD vol rate/area (S/P/Bld) 102 mL/min/{1.73_m2} Normal Compreh ensive Internal Medicine Work Phone: Comment on above: Note: A persistent e GFR <60 mL/min/1.73 m2 (3 months or more) mayindicate chronic kidney disease. An eGFR >59 mL/min/1.73 m2 with anelevated urine protein also may indicate chronic kidney disease.Calculated using CKD-EPI formula. PATIENT WAS FASTINGP ERFORMED BY: CB [facility] Iqcczm1951 [facility] [id number] BY: [address] [id number] GFR/1.73 sq M predicted among non-blacks CKD-EPI vol rate/area (S/P/Bld) 88 mL/min/1.73 Normal [facility] Work Phone: Comment on above: PATIENT WAS FASTINGP ERFORMED BY: CB [facility] Fckvdp1701 [facility] [id number] BY: [address] [id number] Globulin mass conc (S) 3.6 g/dL Normal 1.5-4.5 [facility] Work Phone: Comment on above: PATIENT WAS FASTINGP ERFORMED BY: CB [facility] Snfsab4133 [facility] [id number] BY: [address] [id number] Glucose mass conc 102 mg/dL Abnormal 65-99 Compreh ensive Internal Medicine Work Phone: Comment on above: PATIENT WAS FASTINGP ERFORMED BY: CB [facility] Jfqsfl6631 [facility] [id number] BY: [address] [id number] Potassium molar conc 3.9 mmol/L Normal 3.5-5.2 Comp rehensive Internal Medicine Work Phone: Comment on above: PATIENT WAS FASTINGP ERFORMED BY: CB [facility] Sxphsa5295 [facility] [id number] BY: [address] [id number] Protein mass conc 7.5 g/dL Normal 6.0-8.5 Compreh ensive Internal Medicine Work Phone: Comment on above: PATIENT WAS FASTINGP ERFORMED BY: CB [facility] Fwkyey7800 [address] [facility] [id number] BY: [facility]Co[address] [id number] Sodium molar conc 140 mmol/L Normal 135-145 Compreh ensive Internal Medicine Work Phone: Comment on above: PATIENT WAS FASTINGP ERFORMED BY: CB [facility] Gdtbcv7739 [address] [facility] [id number] BY: [facility] [address] [id number] Urea nitrogen mass conc 19 mg/dL Normal 6-24 C o[facility] Work Phone: Comment on above: PATIENT WAS FASTINGP ERFORMED BY: CB [facility] Ucooex9000 [address] [facility] [id number] BY: [address] [id number] Urea nitrogen/Creatinine mass ratio 24 mg/mg Abnormal 9- [facility] Work Phone: Comment on above: PATIENT WAS FASTINGP ERFORMED BY: CB [facility] Mawtvx9172 [facility] [id number] BY: [address] [id number] HAND,MIN 3 VIEWSOrdered By: Planner Intern on 10-10-2010 HAND,MIN 3 VIEWS See Note Normal Comprehe nsive Internal Medicine Work Phone: Comment on above: PROCEDURE: X-RAY - R IGHT HAND REASON FOR EXAM: Female, 50 years old. The patient presents withbilateral hand pain. TECHNIQUE: Three views of the hand. COMPARISON: None. FINDINGS:Normal visualized carpal bones. Normal first metacarpus. Normal secondthrough fifth metacarpi. Normal phalanges. There is no demonstratedfracture. Normal carpal articulations. Normal carpometacarpal (CMC) articulation of the thumb. Normalmetacarpophalangeal (MCP) joint of the thumb. Normal interphalangeal(IP) joint of the thumb. Normal second through fifth carpometacarpal (CMC) joints. Normal secondthrough fifth metacarpophalangeal (MCP) joints. Normal proximalinterphalangeal (PIP) and distal interphalangeal (DIP) joints of thesecondthrough fifth fingers. IMPRESSION:Normal x-ray examination of the hand. Dictated on 10/10/101100 by Darien Arora MDribed on 10/10/10 160 by ITS IMPORTSign by Wil Arora MD on 10/10/10 161 Sign by: Wil Arora MD PROCEDURE: X-RAY - R [facility] WRIST REASON FOR EXAM: Female, 50 years old. The patient presents with wristpain. TECHNIQUE: Three views of the wrist were obtained. COMPARISON: None. FINDINGS:Normal visualized distal radius and ulna. Normal distal radioulnararticulation. Normal radiocarpal articulation. Normal carpal bones. Normal carpal articulations. Normal carpometacarpal articulation of the thumb. Normal second throughfifth carpometacarpal articulations. Normal visualized metacarpal bones. IMPRESSION:Normal x-ray examination of the wrist. Dictated on 10/10/101100 by Darien Arora MDribed on 10/10/101610 by ITS IMPORTSign by Wil Arora MD on 10/10/10 1612 Sign by: Wil Arora MD PROCEDURE: X-RAY - L T WRIST REASON FOR EXAM: Female, 50 years old. The patient presents with wristpain. TECHNIQUE: Three views of the wrist were obtained. COMPARISON: None. FINDINGS:Normal visualized distal radius and ulna. Normal distal radioulnararticulation. Normal radiocarpal articulation. Normal carpal bones. Normal carpal articulations. Normal carpometacarpal articulation of the thumb. Normal second throughfifth carpometacarpal articulations. Normal visualized metacarpal bones. IMPRESSION:Normal x-ray examination of the wrist. Dictated on 10/10/101100 by Darien Arora MDribed on 10/10/10 2318 by ITS IMPORTSign by Wil Arora MD on 10/10/10 2319 Sign by: Wil Arora MD PROCEDURE: X-RAY - L EFT HAND REASON FOR EXAM: Female, 50 years old. The patient presents withbilateral hand pain. TECHNIQUE: Three views of the hand. COMPARISON: None. FINDINGS:Normal visualized carpal bones. Normal first metacarpus. Normal secondthrough fifth metacarpi. Normal phalanges. There is no demonstratedfracture. Normal carpal articulations. Normal carpometacarpal (CMC) articulation of the thumb. Normalmetacarpophalangeal (MCP) joint of the thumb. Normal interphalangeal(IP) joint of the thumb. Normal second through fifth carpometacarpal (CMC) joints. Normal secondthrough fifth metacarpophalangeal (MCP) joints. Normal proximalinterphalangeal (PIP) and distal interphalangeal (DIP) joints of thesecondthrough fifth fingers. IMPRESSION:Normal x-ray examination of the hand. Dictated on 10/10/10 1101 by Shirlene Arora MDranscribed on 10/10/10 1610 by ITS IMPORTSign by Wil Arora MD on 10/10/10 1611 Sign by: Wil Arora MD Lipid Panel With LDL/HDL Rat ioOrdered By: Planner Intern on 10-10-2010 Cholesterol in HDL mass conc 39 mg/dL Abnormal [facility] Work Phone: Comment on above: According to ATP-III Guidelines, HDL-C >59 mg/dL is considered anegative risk factor for CHD. PATIENT WAS FASTINGP ERFORMED BY: CB [facility] Qyklyq7075 [facility] [id number] BY: BN [facility] Vcsalesmfi7380 [facility] [id number] Cholesterol in LDL mass conc 111 mg/dL Abnormal 0-99 [facility] Work Phone: Comment on above: PATIENT WAS FASTINGP ERFORMED BY: LUIS F [facility] Cntgih6064 [address] [facility] [place] [id number] BY: [facility] [address] [id number] Cholesterol in LDL/Cholesterol in HDL mass ratio 2.8 {ratio_units} Normal 0.0-3.2 [facility] Work Phone: Comment on above: PATIENT WAS FASTINGP ERFORMED BY: LUIS F [facility] Nvswcr7560 [address] [facility] [id number] BY: [facility] [address] [id number] Cholesterol in VLDL mass conc 32 mg/dL Normal 5-40 [facility] Work Phone: Comment on above: PATIENT WAS FASTINGP ERFORMED BY: LUIS F [facility] Mruhsu4189 [facility] RoadNov[facility] [id number] BY: [facility] [address] [id number] Cholesterol mass conc 182 mg/dL Normal 100-199 [facility] Internal Medicine Work Phone: Comment on above: PATIENT WAS FASTINGP ERFORMED BY: LUIS F [facility] Olupbk4507 [address] [facility] [id number] BY: [facility] [address] [id number] Triglyceride mass conc 159 mg/dL Abnormal 0-149 [facility] Internal Medicine Work Phone: Comment on above: PATIENT WAS FASTINGP ERFORMED BY: CB [facility] Hmiuzp2343 [address] [facility] [place] [id number] BY: [facility] [id number] Microalb/Creat Ratio, Randm UrOrdered By: Planner Intern on 10-10-2010 Albumin DL <= 20 mg/L mass conc (U) 24.2 ug/mL Abnormal 0.0-17.0 [facility] Work Phone: Comment on above: PATIENT WAS FASTINGP ERFORMED BY: LUIS F [facility] Aahadb1249 [address] RoadDublin [place] [id number] BY: [address] [id number] Albumin/Creatinine mass ratio (U) 9.7 {mg/g_creat} Normal 0.0-30.0 [facility] Work Phone: Comment on above: PATIENT WAS FASTINGP ERFORMED BY: LUIS F [facility] Nicnst2670 [facility] [id number] BY: [address] [id number] Creatinine mass conc (U) 249.8 mg/dL Normal 15.0-278.0 [facility] Work Phone: Comment on above: PATIENT WAS FASTINGP ERFORMED BY: LUIS F 1calendar Erboon7487 [facility] [id number] BY: [address] [id number] Rheumatoid Arthritis FactorO rdered By: Planner Intern on 10-10-2010 Rheumatoid factor Qn 6.5 {IU/mL} Normal 0.0-13.9 [facility] Internal Medicine Work Phone: Comment on above: PATIENT WAS FASTINGP ERFORMED BY: LUIS F 1calendarSt. Joseph's Wayne HospitalKhkzls6300 [facility] [id number] BY: [address] [id number] Sedimentation Rate-Westergre nOrdered By: Planner Intern on 10-10-2010 ESR Velocity (Bld) 23 mm/h Normal 0-[address] [facility] Internal Medicine Work Phone: Comment on above: PATIENT WAS FASTINGP ERFORMED BY: LUIS F LabAdFinanceChristopher Ville 4321970 [facility] [id number] BY: [address] [id number] TSHOrdered By: System Manage r on 10-10-2010 Thyrotropin Qn 1.480 {uIU/mL} Normal 0.450-4.50 0 [facility] Work Phone: Comment on above: PATIENT WAS FASTINGP ERFORMED BY: CB [facility] Smdqer6192 [place] [facility] [id number] BY: BN [facility] Srwqtufkzm5594 [facility] [id number] CHEST, PA AND LATERALOrdered By: Planner Intern on 04-21-2010 CHEST, PA AND LATERAL See Note Normal Com prehensive Internal Medicine Work Phone: Comment on above: CLINICAL:Female, 50 years old. Abnormal lung sounds X-RAY EXAMINATION - CHEST TECHNIQUE:PA and lateral COMPARISON:March 29, 2009 FINDINGS: The lungs are expanded. There is no demonstrated pulmonary parenchymalabnormality. There is no demonstrated pleural abnormality. The heart is normal in size and morphology. Normal mediastinum and gosia. Normal visualized pulmonary arteries. Normal visualized aortic arch anddescending thoracic aorta. Normal visualized thoracic spine. IMPRESSION:Normal x-ray examination of the chest. No significant change. Dictated on 04/21/10 1525 by NICCI BUTTTranscribed on 04/23/10 0757 by ITS IMPORTSign by NICCI BUTT on 04/23/10 0758 Sign by: NICCI BUTT Rapid Flu (39816 x 2)Ordered By: Evelina Owens on 04-21-2010 FLUAV Ag IA Ql (Throat) Negative Normal C omprehensive Internal Medicine Work Phone: Thin prep Pap ([id number])Ordered By: Planner Intern on 09-19-2009 Microscopic observation Other stain Nom (Unsp spec) . Normal [facility] Work Phone: Comment on above: LMP / Prev Treat...L [id number]. of containers..01 CYTYC Thin Prep VialPATIENT NOT FASTINGPERFORMED BY: WB [facility] [address] [place] [id number] Information: ADD [id number] Pathology report final diagnosis Narrative SPRCS Normal Comprehensiv e Internal Medicine Work Phone: Comment on above: NEGATIVE FOR INTRAEP ITHELIAL LESION AND MALIGNANCY.Satisfactory for evaluation. Endocervical and/or squamous metaplasticcells (endocervical component) are present.V72.31 ; Routine gynecological examinationGail Casper Brooch And Bracelet Maker LMP / Prev Treat...L VU=[id number]. of containers..01 CYTYC Thin Prep VialPATIENT NOT FASTINGPERFORMED BY: [address] [id number] Information: ADD [id number] Thin prep Pap (49147) PAPSMR Normal [facility] Internal Medicine Work Phone: Comment on above: The Pap smear is a s creening test designed to aid in the detection ofpremalignant and malignant conditions of the uterine cervix. It is not adiagnostic procedure and should not be used as the sole means of detectingcervical cancer. Both false-positive and false-negative reports do occur..The HPV DNA reflex criteria were not met with this specimen resulttherefore, no HPV testing was performed.. LMP / Prev Treat...L KN=[id number]. of containers..01 CYTYC Thin Prep VialPATIENT NOT FASTINGPERFORMED BY: 1calendar Kwjdcwfiog[address] [id number] Information: ADD [id number] CBCD,SMEAR DIFFOrdered By: Maggi ystem Sales And Service Consultant on 09-15-2009 Erythrocyte distribution width Ratio (RBC) 12.6 % Normal 11.6-14.6 [facility] Work Phone: Hematocrit Volume Fraction (Bld) 34.8 % Abnormal 37-47 [facility] Work Phone: Hemoglobin mass conc (Bld) 11.8 g/dL Abnormal 12.0-16.0 [facility] Work Phone: Lymphocytes/100 WBC (Bld) 23 % Normal 19-41 [facility] Work Phone: MCH Entitic mass (RBC) 28.2 pg Normal 27.0-32.0 [facility] Internal Medicine Work Phone: MCHC mass conc (RBC) 34.0 g/dL Normal 32-36 Comp rehensive Internal Medicine Work Phone: MCV Entitic volume (RBC) 82.9 fL Normal 81-99 [facility] Work Phone: Monocytes/100 WBC (Bld) 8 % Normal 0-10 C omprehensive Internal Medicine Work Phone: Neutrophils #/vol (Bld) 6.1 3/uL Normal 2.0-7.7 C omprehensive Internal Medicine Work Phone: Platelets #/vol (Bld) 287 10*3/uL Normal 150-450 Co mprehensive Internal Medicine Work Phone: Platelets #/vol (Bld) SeeNote Normal Com prehensive Internal Medicine Work Phone: Comment on above: Result: ADEQUATE RBC #/vol (Bld) 4.19 {M/mm3} Abnormal 4.2-5.4 Compreh ensive Internal Medicine Work Phone: WBC #/vol (Bld) 9.2 10*3/uL Normal 4.4-11.0 Comprehe nsive Internal Medicine Work Phone: CBCD,SMEAR DIFF 100 1 Normal Comprehen [facility] Internal Medicine Work Phone: CBCD,SMEAR DIFF 69 % Normal 47-70 Comprehen [facility] Internal Medicine Work Phone: COMP METABOLICOrdered By: Sadiq stem Sales And Service Consultant on 09-15-2009 Albumin mass conc 3.4 g/dL Normal 3.4-5.0 Compreh ensive Internal Medicine Work Phone: Albumin/Globulin mass ratio 0.8 {RATIO} Abnormal 0.9-2.4 [facility] Work Phone: ALP enzyme act/vol 123 U/L Normal 50-136 Compre hensive Internal Medicine Work Phone: ALT enzyme act/vol 30 U/L Normal 12-78 [facility]pre [facility] Work Phone: Anion gap molar conc 7 mmol/L Normal 5-15 Comp rehensive Internal Medicine Work Phone: AST enzyme act/vol 21 U/L Normal 15-37 Compre hensive Internal Medicine Work Phone: Bilirubin mass conc 0.40 mg/dL Normal 0.00-1.00 Compr ehensive Internal Medicine Work Phone: Calcium mass conc 8.9 mg/dL Normal 8.5-10.1 Compreh ensive Internal Medicine Work Phone: Chloride molar conc 101 mmol/L Normal 98-107 Compr ehensive Internal Medicine Work Phone: CO2 molar conc 28.0 mmol/L Normal 21.0-32.0 Comprehen sive Internal Medicine Work Phone: Creatinine mass conc 0.8 mg/dL Normal 0.6-1.0 Comp rehensive Internal Medicine Work Phone: GFR/1.73 sq M predicted among blacks MDRD vol rate/area (S/P/Bld) 98 mL/min/{1.73_m2} Normal Comprehe nsive Internal Medicine Work Phone: GFR/1.73 sq M.predicted MDRD vol rate/area 81 mL/min/{1.73_m2} Normal Comprehen [facility] Work Phone: Globulin mass conc (S) 4.4 g/dL Abnormal 2.7-4.2 Co mprehensive Internal Medicine Work Phone: Glucose mass conc 106 mg/dL Normal 70-110 Compreh ensive Internal Medicine Work Phone: Potassium molar conc 4.1 mmol/L Normal 3.5-5.1 Comp rehensive Internal Medicine Work Phone: Protein mass conc 7.8 g/dL Normal 6.4-8.2 Compreh ensive Internal Medicine Work Phone: Sodium molar conc 136 mmol/L Normal 136-145 Compreh [facility] Work Phone: Urea nitrogen mass conc 15 mg/dL Normal 7-18 C [facility] Work Phone: Urea nitrogen/Creatinine mass ratio 18.8 {RATIO} Normal 10-20 [facility] Work Phone: COMPLETE UAOrdered By: Jess guerra Sales And Service Consultant on 09-15-2009 Bacteria LM.HPF #/area (Urine sed) 2+ Normal [facility] Work Phone: Clarity Nom (U) SeeNote Normal [facility] Work Phone: Comment on above: Result: SL CLOUDY Color Nom (U) YELLOW Normal Comprehensi ve [facility] Work Phone: Glucose mass conc SeeNote Normal Compre[facility] Work Phone: Comment on above: Result: NEGATIVE Protein mass conc SeeNote Normal Compreh [facility] Work Phone: Comment on above: Result: NEGATIVE RBC #/vol (U) 0 SEEN Normal 0-5 Comprehensi ve [facility] Medicine Work Phone: WBC #/vol (Bld) SeeNote Normal 0-5 Comprehen [facility] Work Phone: Comment on above: Result: 0-5 SEEN COMPLETE UA SeeNote Normal [facility] Work Phone: Comment on above: Result: NEGATIVE Result: NORM C+C Result: 10-25 SEEN COMPLETE UA 0 SEEN Normal [facility] Work Phone: COMPLETE UA 5.5 1 Normal 5.0-8.0 [facility] Work Phone: COMPLETE UA >=1.030 Normal 1.002-1.03 0 [facility] Work Phone: COMPLETE UA 0.2 EU/dl Normal 0.2 - 1.0 [facility] Work Phone: LIPIDOrdered By: Martine hamilton on 09-15-2009 Cholesterol in HDL mass conc 34 mg/dL Abnormal [facility] Work Phone: Comment on above: Reference RangeHDL < 40 mg/dL Low HDL CholesterolHDL >or= 60 mg/dL High HDL Cholesterol Cholesterol in LDL mass conc 102 mg/dL Normal 0-130 [facility] Work Phone: Cholesterol in VLDL mass conc 26 mg/dL Normal 5-40 [facility] Work Phone: Cholesterol mass conc 162 mg/dL Normal Com prehensive [facility] Work Phone: Comment on above: <200 mg/dL Desirable 200-240 mg/dL Borderline>240 mg/dL High Risk Triglyceride mass conc 130 mg/dL Normal Co m[facility] Work Phone: Comment on above: Serum Triglycerides Reference IntervalNormal <150 mg/dLBorderline high 150 - 199 mg/dLHigh 200 - 499 mg/dLVery High > or = 500 mg/dL MICROALBOrdered By: System Aan jimenez on 09-15-2009 Creatinine mass conc 11.3 {mg/g_CRE} Normal [facility] Work Phone: Creatinine mass conc 141.7 mg/dL Normal Com prehensive [facility] Work Phone: MICROALB 16.1 mg/L Normal [facility] Work Phone: TSHOrdered By: System Manage r on 09-15-2009 Thyrotropin Qn 1.69 {uIU/mL} Normal 0.358-3.74 Compreh ensive [facility] Work Phone: CHEST, PA AND LATERAL (MT)Or dered By: Planner Intern on 03-29-2009 CHEST, PA AND LATERAL (MT) See Note Normal [facility] Work Phone: Comment on above: Exam Number: [id number] CHEST, PA AND LATERAL PA and lateral chest radiographs were obtained. Comparison is madewith the prior examination dated January 28, 2009. HISTORYThis is a 49-year-old female patient with a history of followup forpneumonia. FINDINGSThe previously seen infiltrate in the left upper lobe has cleared.No acute abnormality is seen. IMPRESSIONThe left upper lobe pneumonia has cleared. Reported By: WIL ARORA CHEST, PA AND LATERAL (MT)Or dered By: Planner Intern on 01-28-2009 CHEST, PA AND LATERAL (MT) See Note Normal [facility] Work Phone: Comment on above: Exam Number: [id number] CLINICAL:Fever, cough and shortness of breath X-RAY EXAMINATION: CHEST TECHNIQUE:Two views COMPARISON:No previous studies are immediately available for comparison. FINDINGS:The lung escobedo are expanded with focal parenchymal infiltrate in the left upper lobe, anterior segment. There are no pleural effusions. The heart is normal in size and morphology. Normal visualized aortic arch and descending thoracic aorta. There is no demonstrated mediastinal or hilar abnormality. The visualized pulmonary arteries are normal, without pulmonary vascular congestion. The visualized osseous structures are unremarkable. IMPRESSION:Radiographic findings consistent with left upper lobe pneumonia. Reported By: SHANT HILL M.D. INFLUENZA IMMUNOASSY DIRECT OPTICAL OBSERV ([id number])Ordered By: Emily Arteaga on 01-28-2009 FLUAV Ag IA Ql (Throat) Negative Normal C [facility] Work Phone: Influenza A, H1N1, RT PCROrd ered By: Planner Intern on 01-28-2009 Influenza A, H1N1, RT PCR Negative Normal [facility] Work Phone: Comment on above: Clinical Information : SRC:NL PERFORMED BY: [facility] [id number] [facility] [id number] Viral Culture,Rapid,Influenz aOrdered By: Planner Intern on 01-28-2009 FLUV identified Org specific cx Nom (Unsp spec) Final report Normal [facility] Work Phone: Comment on above: Negative:No Influenz a A or B detected. PERFORMED BY: [facility] [id number] [facility] [id number] Rapid Flu (14373 x 2)Ordered By: Dee Sims on 05-11-2008 FLUAV Ag IA Ql (Throat) Negative Normal [facility] Work Phone: C-REACTIVE PROTOrdered By: Maggi ramireztem Sales And Service Consultant on 09-04-2006 CRP mass conc 7.69 mg/L Abnormal 0.0-6.0 Comprehensi ve Internal Medicine Work Phone: Comment on above: Test performed using the Dimension C-Reactive ProteinExtended Range assay method. This assay meets the AHA/CDC 2003 recommendations fordetermining patients at high risk for cardiovasculardisease. Reference: High risk CRP >3.0 mg/L LIPIDOrdered By: Martine hamilton on 09-04-2006 Cholesterol in HDL mass conc 30 mg/dL Abnormal [facility] Work Phone: Comment on above: Reference Range HDL <40 mg/dL Low HDL Cholesterol HDL >or= 60 mg/dL High HDL Cholesterol Cholesterol in LDL mass conc 105 mg/dL Normal 0-130 [facility] Work Phone: Cholesterol in VLDL mass conc 27 mg/dL Normal 5-40 [facility] Work Phone: Cholesterol mass conc 162 mg/dL Normal Com prehensive [facility] Work Phone: Comment on above: <200 mg/dL Desirable 200-240 mg/dL Borderline >240 mg/dL High Risk Triglyceride mass conc 136 mg/dL Normal Co [facility] Work Phone: Comment on above: Serum Triglycerides Reference Interval Normal <150 mg/dL Borderline high 150 - 199 mg/dL High 200 - 499 mg/dL Very High > or = 500 mg/dL ROUTINE UAOrdered By: Planner Intern on 09-04-2006 Clarity Nom (U) CLOUDY Normal Comprehen sive [facility] Work Phone: Color Nom (U) YELLOW Normal Comprehensi ve [facility] Work Phone: Glucose mass conc SeeNote Normal Compreh ensive [facility] Work Phone: Comment on above: Result: NEGATIVE Protein mass conc SeeNote Normal Compreh ens[facility] Work Phone: Comment on above: Result: NEGATIVE ROUTINE UA SeeNote Normal [facility] Work Phone: Comment on above: Result: NEGATIVE ROUTINE UA 5.5 1 Normal 5.0-8.0 [facility] Work Phone: ROUTINE UA >=1.030 Normal 1.002-1.03 0 [facility] Work Phone: ROUTINE UA 0.2 EU/dl Normal 0.2 - 1.0 [facility] Work Phone: TSHOrdered By: System Manage r on 09-04-2006 Thyrotropin Qn 1.17 {uIU/mL} Normal 0.34-4.82 Compreh ensive [facility] Work Phone: MAMM, UILAT DIAG DIGITAL & C ADOrdered By: Planner Intern on 07-26-2006 MAMM, UINAVJOT DIAG DIGITAL & CAD See Note Normal [facility] Work Phone: Comment on above: Exam Number: [id number] MAMMOGRAM, LEFT UNILATERAL DIAGNOSTIC DIGITAL AND CAD HISTORYAbnormal screening study. TECHNIQUEFull field digital images were obtained in true lateral, rollcraniocaudal, mediolateral oblique, and craniocaudal spot compressionviews. CAD images were reviewed. COMPARISONThe current study is compared to the examinations of 12/08, 03/12, and07/17/06. FINDINGSThere is moderate to severe extent of fibroglandular parenchymapresent. There is no skin thickening or retraction, architecturaldistortion, or cluster of suspicious microcalcifications. There is adensity in the upper outer quadrant of the left breast which appearsto have increased in size and changed in shape. For this reason,surgical evaluation is recommended. IMPRESSIONApparent change in a previously stable density in the upper outerquadrant of the left breast. Surgical evaluation is recommended. FINAL ASSESSMENTSuspicious. BIRADS Category 4. Report will be called to Dr. Victoria Dasilva's office. A letter regarding these results has been sent to the patient. This interpretation was rendered by a radiologist certified under theMammography Quality Standards Act of 1992 (MQSA). The mammograms werealso examined with computer-aided detection software ([employer], [employer] Reported By: KASIE MARCH M.D. MAMM, BILAT SCRN DIGITAL & C ADOrdered By: Planner Intern on 07-17-2006 MAMM, BILAT SCRN DIGITAL & CAD See Note Normal [facility] Work Phone: Comment on above: Exam Number: [id number] MAMMOGRAM, BILATERAL SCREENING DIGITAL & CAD HISTORY: Screening Full field digital images were obtained in mediolateral oblique andcraniocaudal projection. CAD images were reviewed. The current studyis compared to the examinations of 12/08 and 03/12. There ismoderately dense fibroglandular parenchyma present. There is no skinthickening or retraction, architectural distortion or cluster ofsuspicious microcalcifications. There is an area of asymmetricparenchymal density in the upper mid right breast which is unchangedfrom 12/08. There is an area of asymmetric parenchymal density in theouter mid left breast and a second area of asymmetric parenchymaldensity in the upper mid left breast. Both of these densities appearlarger than on previous studies. For further evaluation, truelateral, roll craniocaudal and spot mediolateral oblique andcraniocaudal views were suggested. IMPRESSION1) There are areas of asymmetric parenchymal density bilaterally. Twodensities on the left appear to have increased in size. Additionalviews are therefore recommended. Ultrasound may also be needed. FINAL ASSESSMENTNeed additional imaging evaluation. BIRADS Category zero. A letter regarding the results has been sent to the patient. This interpretation was rendered by a radiologist certified under theMammography Quality Standards Act of 1992 (MQSA). The mammograms werealso examined with computer-aided detection software ([employer].). Reported By: KASIE MARCH M.D. Vital Signs Date Time Vital Sign Value Performing Clinician Facility 11-09-2024 08:00-0400 Body temperature 97.5 [degF] Treatment Wstr Work Phone: [facility] 11-09-2024 08:00-0400 Diastolic blood pressure 89 mm[Hg] Treatment Wstr Work Phone: [facility] 11-09-2024 08:00-0400 Heart rate 92 /min Treatment Wstr Work Phone: [facility] 11-09-2024 08:00-0400 SaO2% (BldA) [Mass fraction] 99 % Treatment Wstr Work Phone: [facility] 11-09-2024 08:00-0400 Systolic blood pressure 138 mm[Hg] Treatment Wstr Work Phone: [facility] 11-02-2024 11:11-0400 Body height 167.[address] Jacinta Rivas MD Work Phone: [facility] 11-02-2024 11:11-0400 Body mass index (BMI) [Ratio] 29 kg/m2 Dr. Jacinta Rivas MD Work Phone: [facility] 11-02-2024 11:11-0400 Body weight 81.[address] Jacinta Rivas MD Work Phone: [facility] 11-02-2024 11:11-0400 Diastolic blood pressure 78 mm[Hg] Dr. Jacinta Rivas MD Work Phone: [facility] 11-02-2024 11:11-0400 Heart rate 82 /min Dr. Jacinta Rivas MD Work Phone: [facility] 11-02-2024 11:11-0400 Respiratory rate 18 /min Dr. Jacinta Rivas MD Work Phone: [facility] 11-02-2024 11:11-0400 SaO2% (BldA) [Mass fraction] 98 % Dr. Jacinta Rivas MD Work Phone: [phone] [place] [address] 11-02-2024 11:11-0400 Systolic blood pressure 115 mm[Hg] Dr. Jacinta Rivas MD Work Phone: [facility] 10-30-2024 09:19-0400 Body mass index (BMI) [Ratio] 29.58 kg/m2 Serena Masci DO Work Phone: [facility] 10-30-2024 09:19-0400 Body temperature 98.29 [degF] Serena Masci DO Work Phone: [facility] 10-30-2024 09:19-0400 Body weight 81.87 kg Serena Masci DO Work Phone: [facility] 10-30-2024 09:19-0400 Diastolic blood pressure 78 mm[Hg] Serena Masci DO Work Phone: [facility] 10-30-2024 09:19-0400 Heart rate 91 /min Serena Masci DO Work Phone: [facility] 10-30-2024 09:19-0400 SaO2% (BldA) [Mass fraction] 100 % Serena Masci DO Work Phone: [facility] 10-30-2024 09:19-0400 Systolic blood pressure 124 mm[Hg] Serena Carrasco DO Work Phone: [facility] 10-26-2024 14:28-0400 Body mass index (BMI) [Ratio] 29.66 kg/m2 Lisbet Rona HULLER OPERATOR.PLATEN GRINDER Work Phone: [facility] 10-26-2024 14:28-0400 Body weight 82.1 kg Lisbet Rona HULLER OPERATOR.PLATEN GRINDER Work Phone: [facility] 10-26-2024 14:28-0400 Diastolic blood pressure 78 mm[Hg] Lisbet Rona HULLER OPERATOR.PLATEN GRINDER Work Phone: [facility] 10-26-2024 14:28-0400 Heart rate 85 /min Lisbet Rona HULLER OPERATOR.PLATEN GRINDER Work Phone: [facility] 10-26-2024 14:28-0400 SaO2% (BldA) [Mass fraction] 97 % Lisbet Rona HULLER OPERATOR.PLATEN GRINDER Work Phone: [facility] 10-26-2024 14:28-0400 Systolic blood pressure 122 mm[Hg] Lisbet Rona HULLER OPERATOR.PLATEN GRINDER Work Phone: [facility] 10-15-2024 13:36-0400 Body temperature 98.91 [degF] Mino Beard HULLER OPERATOR.PLATEN GRINDER Work Phone: [facility] 10-15-2024 13:36-0400 Diastolic blood pressure 77 mm[Hg] Mino Beard HULLER OPERATOR.PLATEN GRINDER Work Phone: [facility] 10-15-2024 13:36-0400 Heart rate 85 /min Mino Beard HULLER OPERATOR.PLATEN GRINDER Work Phone: [facility] 10-15-2024 13:36-0400 SaO2% (BldA) [Mass fraction] 99 % Mino Beard HULLER OPERATOR.PLATEN GRINDER Work Phone: [facility] 10-15-2024 13:36-0400 Systolic blood pressure 122 mm[Hg] Mino Beard HULLER OPERATOR.PLATEN GRINDER Work Phone: [facility] 10-14-2024 11:44-0400 Body height 166.4 cm Daisy Cioce HULLER OPERATOR.PLATEN GRINDER Work Phone: [facility] 10-14-2024 11:44-0400 Body mass index (BMI) [Ratio] 29.6 kg/m2 Daisy Cioce HULLER OPERATOR.PLATEN GRINDER Work Phone: [facility] 10-14-2024 11:44-0400 Body weight 81.92 kg Daisy Cioce HULLER OPERATOR.PLATEN GRINDER Work Phone: [facility] 10-14-2024 11:44-0400 Diastolic blood pressure 64 mm[Hg] Daisy Cioce HULLER OPERATOR.PLATEN GRINDER Work Phone: [facility] 10-14-2024 11:44-0400 Heart rate 84 /min Daisy Cioce HULLER OPERATOR.PLATEN GRINDER Work Phone: [facility] 10-14-2024 11:44-0400 Respiratory rate 17 /min Daisy Cioce HULLER OPERATOR.PLATEN GRINDER Work Phone: [facility] 10-14-2024 11:44-0400 SaO2% (BldA) [Mass fraction] 96 % Daisy Cioce HULLER OPERATOR.PLATEN GRINDER Work Phone: [facility] 10-14-2024 11:44-0400 Systolic blood pressure 110 mm[Hg] Daisy Cioce HULLER OPERATOR.PLATEN GRINDER Work Phone: [facility] 10-13-2024 14:59-0400 Body mass index (BMI) [Ratio] 29.34 kg/m2 Lisbet Rona HULLER OPERATOR.PLATEN GRINDER Work Phone: [facility] 10-13-2024 14:59-0400 Body weight 81.2 kg Lisbet Rona HULLER OPERATOR.PLATEN GRINDER Work Phone: [facility] 10-13-2024 14:59-0400 Diastolic blood pressure 82 mm[Hg] Lisbet Rona HULLER OPERATOR.PLATEN GRINDER Work Phone: [facility] 10-13-2024 14:59-0400 Heart rate 64 /min Lisbet Rona HULLER OPERATOR.PLATEN GRINDER Work Phone: [facility] 10-13-2024 14:59-0400 Systolic blood pressure 146 mm[Hg] Lisbet Rona HULLER OPERATOR.PLATEN GRINDER Work Phone: [facility] 09-22-2024 14:29-0400 Body mass index (BMI) [Ratio] 28.51 kg/m2 Nel OrozcoBarb HULLER OPERATOR.PLATEN GRINDER Work Phone: [facility] 09-22-2024 14:29-0400 Body weight 78.93 kg Nel OrozcoBarb HULLER OPERATOR.PLATEN GRINDER Work Phone: [facility] 09-22-2024 14:29-0400 Diastolic blood pressure 70 mm[Hg] Nel Barb HULLER OPERATOR.PLATEN GRINDER Work Phone: [facility] 09-22-2024 14:29-0400 Heart rate 88 /min Nel Arellanor HULLER OPERATOR.PLATEN GRINDER Work Phone: [facility] 09-22-2024 14:29-0400 Respiratory rate 14 /min Nel OrozcoBarb HULLER OPERATOR.PLATEN GRINDER Work Phone: [facility] 09-22-2024 14:29-0400 SaO2% (BldA) [Mass fraction] 99 % Nel OrozcoBarb HULLER OPERATOR.PLATEN GRINDER Work Phone: [facility] 09-22-2024 14:29-0400 Systolic blood pressure 116 mm[Hg] Nel OrozcoBarb HULLER OPERATOR.PLATEN GRINDER Work Phone: [facility] 09-07-2024 14:18-0400 Body mass index (BMI) [Ratio] 28.54 kg/m2 Cathy Aguileras 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 Work Phone: [facility] 09-07-2024 14:18-0400 Body weight 79 kg Cathy Aguileras 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 Work Phone: [facility] 09-07-2024 14:18-0400 Diastolic blood pressure 75 mm[Hg] Cathy Burr 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 Work Phone: [facility] 09-07-2024 14:18-0400 Heart rate 105 /min Cathy Burr 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 Work Phone: [facility] 09-07-2024 14:18-0400 Respiratory rate 16 /min Cathy Burr 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 Work Phone: [facility] 09-07-2024 14:18-0400 Systolic blood pressure 114 mm[Hg] Cathy Burr 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 Work Phone: [facility] 09-03-2024 13:12-0400 Body temperature 98.01 [degF] Micki Marcelino MD Work Phone: [facility] 09-03-2024 13:12-0400 Diastolic blood pressure 81 mm[Hg] Micki Marcelino MD Work Phone: [facility] 09-03-2024 13:12-0400 Heart rate 87 /min Micki Marcelino MD Work Phone: [facility] 09-03-2024 13:12-0400 Respiratory rate 15 /min Micki Marcelino MD Work Phone: [facility] 09-03-2024 13:12-0400 SaO2% (BldA) [Mass fraction] 99 % Micki Marcelino MD Work Phone: [facility] 09-03-2024 13:12-0400 Systolic blood pressure 135 mm[Hg] Micki Marcelino MD Work Phone: [facility] 07-15-2024 13:02-0400 Body temperature 97 [degF] Micki Butler HULLER OPERATOR.PLATEN GRINDER Work Phone: [facility] 07-09-2024 09:31-0400 Body mass index (BMI) [Ratio] 27.37 kg/m2 Serena Carrasco DO Work Phone: [facility] 07-09-2024 09:31-0400 Body temperature 97.2 [degF] Serena Carrasco DO Work Phone: [facility] 07-09-2024 09:31-0400 Body weight 75.75 kg Serena Masci DO Work Phone: [facility] 07-09-2024 09:31-0400 Diastolic blood pressure 86 mm[Hg] Serena Edsoni DO Work Phone: [facility] 07-09-2024 09:31-0400 Heart rate 75 /min Serena Edsoni DO Work Phone: [facility] 07-09-2024 09:31-0400 Respiratory rate 12 /min Serena Sandhui DO Work Phone: [facility] 07-09-2024 09:31-0400 SaO2% (BldA) [Mass fraction] 99 % Serena Sandhui DO Work Phone: [facility] 07-09-2024 09:31-0400 Systolic blood pressure 121 mm[Hg] Serena Sandhui DO Work Phone: [facility] 06-25-2024 13:06-0400 Body height 166.4 cm Micki Marcelino MD Work Phone: [facility] 06-25-2024 13:06-0400 Body mass index (BMI) [Ratio] 28.84 kg/m2 Micki Marcelino MD Work Phone: [facility] 06-25-2024 13:06-0400 Body temperature 96.91 [degF] Micki Marcelino MD Work Phone: [facility] 06-25-2024 13:06-0400 Body weight 79.83 kg Micki Marcelino MD Work Phone: [facility] 06-25-2024 13:06-0400 Diastolic blood pressure 87 mm[Hg] Micki Marcelino MD Work Phone: [facility] 06-25-2024 13:06-0400 Heart rate 70 /min Micki Marcelino MD Work Phone: [facility] 06-25-2024 13:06-0400 Systolic blood pressure 153 mm[Hg] Micki Marcelino MD Work Phone: [facility] 06-05-2024 08:42-0500 Diastolic blood pressure 103 mm[Hg] Cathy Burr 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 Work Phone: [facility] Comment on above: bp average 06-05-2024 08:42-0500 Heart rate 93 /min Cathy Burr 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 Work Phone: [facility] 06-05-2024 08:42-0500 Systolic blood pressure 162 mm[Hg] Cathy Burr 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 Work Phone: [facility] Comment on above: bp average 06-05-2024 08:36-0500 Body mass index (BMI) [Ratio] 28.9 kg/m2 Cathy Burr 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 Work Phone: [facility] 06-05-2024 08:36-0500 Body weight 80 kg Cathy Burr 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 Work Phone: [facility] 06-05-2024 08:36-0500 Respiratory rate 16 /min Cathy Burr 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 Work Phone: [facility] 06-04-2024 11:04-0500 Diastolic blood pressure 117 mm[Hg] Mino Beard HULLER OPERATOR.PLATEN GRINDER Work Phone: [facility] 06-04-2024 11:04-0500 Heart rate 96 /min Mino Beard HULLER OPERATOR.PLATEN GRINDER Work Phone: [facility] 06-04-2024 11:04-0500 Systolic blood pressure 176 mm[Hg] Mino Beard HULLER OPERATOR.PLATEN GRINDER Work Phone: [facility] 05-26-2024 10:02-0500 Diastolic blood pressure 96 mm[Hg] Cathy Burr 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 Work Phone: [facility] Comment on above: bp average 05-26-2024 10:02-0500 Heart rate 95 /min Cathy Burr 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 Work Phone: [facility] 05-26-2024 10:02-0500 SaO2% (BldA) [Mass fraction] 98 % Cathy Burr 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 Work Phone: [facility] 05-26-2024 10:02-0500 Systolic blood pressure 155 mm[Hg] Cathy Aguileras 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 Work Phone: [facility] Comment on above: bp average 05-26-2024 09:54-0500 Body mass index (BMI) [Ratio] 28.9 kg/m2 Cathy Aguileras 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 Work Phone: [facility] 05-26-2024 09:54-0500 Body weight 80 kg Cathy Aguileras 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 Work Phone: [facility] 05-26-2024 09:54-0500 Respiratory rate 16 /min Cathy Burr 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 Work Phone: [facility] 05-18-2024 14:45-0500 Body temperature 97.3 [degF] Micki Marcelino MD Work Phone: [facility] 05-18-2024 14:45-0500 Diastolic blood pressure 68 mm[Hg] Micki Marcelino MD Work Phone: [facility] 05-18-2024 14:45-0500 Heart rate 80 /min Micki Marcelino MD Work Phone: [facility] 05-18-2024 14:45-0500 Respiratory rate 18 /min Micki Marcelino MD Work Phone: [facility] 05-18-2024 14:45-0500 SaO2% (BldA) [Mass fraction] 97 % Micki Marcelino MD Work Phone: [facility] 05-18-2024 14:45-0500 Systolic blood pressure 122 mm[Hg] Micki Marcelino MD Work Phone: [facility] 05-18-2024 10:26-0500 Body mass index (BMI) [Ratio] 28.72 kg/m2 Micki Marcelino MD Work Phone: [facility] 05-18-2024 10:26-0500 Body weight 79.5 kg Micki Marcelino MD Work Phone: [facility] 05-12-2024 09:41-0500 Body mass index (BMI) [Ratio] 27.82 kg/m2 Cathy Burr 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 Work Phone: [facility] [facility] 05-12-2024 09:41-0500 Body weight 77 kg Cathy Burr 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 Work Phone: [facility] 05-12-2024 09:41-0500 Diastolic blood pressure 92 mm[Hg] Cathy Burr 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 Work Phone: [facility] 05-12-2024 09:41-0500 Heart rate 92 /min Cathy Burr 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 Work Phone: [facility] 05-12-2024 09:41-0500 Respiratory rate 16 /min Cathy Burr 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 Work Phone: [facility] 05-12-2024 09:41-0500 Systolic blood pressure 142 mm[Hg] Cathy Burr 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 Work Phone: [facility] 05-07-2024 07:46-0500 Diastolic blood pressure 86 mm[Hg] Cathy Burr 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 Work Phone: [facility] 05-07-2024 07:46-0500 Systolic blood pressure 136 mm[Hg] Cathy Burr 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 Work Phone: [facility] 05-07-2024 07:44-0500 Body mass index (BMI) [Ratio] 27.46 kg/m2 Cathy Burr 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 Work Phone: [facility] 05-07-2024 07:44-0500 Body weight 76 kg Cathy Burr 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 Work Phone: [facility] 05-07-2024 07:44-0500 Heart rate 92 /min Cathy Burr 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 Work Phone: [facility] 05-07-2024 07:44-0500 Respiratory rate 16 /min Cathy Burr 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 Work Phone: [facility] 05-04-2024 11:10-0500 Body height 166.4 cm [facility] Comment on above: patient reported 05-04-2024 11:10-0500 Body mass index (BMI) [Ratio] 27.04 kg/m2 [facility] 05-04-2024 11:10-0500 Body weight 74.84 kg [facility] Comment on above: patient reported 05-04-2024 11:10-0500 Heart rate 82 /min [facility] Comment on above: [employer] 04-28-2024 14:56-0500 Body mass index (BMI) [Ratio] 28.05 kg/m2 Carla Forbes HULLER OPERATOR.PLATEN GRINDER Work Phone: [facility] 04-28-2024 14:56-0500 Body temperature 99.19 [degF] Carla Forbes HULLER OPERATOR.PLATEN GRINDER Work Phone: [facility] 04-28-2024 14:56-0500 Body weight 77.3 kg Carla Forbes HULLER OPERATOR.PLATEN GRINDER Work Phone: [facility] 04-28-2024 14:56-0500 Diastolic blood pressure 80 mm[Hg] Carla Forbes HULLER OPERATOR.PLATEN GRINDER Work Phone: [facility] 04-28-2024 14:56-0500 Heart rate 96 /min Carla Forbes HULLER OPERATOR.PLATEN GRINDER Work Phone: [facility] 04-28-2024 14:56-0500 Respiratory rate 16 /min Carla Forbes HULLER OPERATOR.PLATEN GRINDER Work Phone: [facility] 04-28-2024 14:56-0500 SaO2% (BldA) [Mass fraction] 96 % Carla Forbes HULLER OPERATOR.PLATEN GRINDER Work Phone: [facility] 04-28-2024 14:56-0500 Systolic blood pressure 126 mm[Hg] Carla Forbes HULLER OPERATOR.PLATEN GRINDER Work Phone: [facility] 04-15-2024 12:10-0500 Body mass index (BMI) [Ratio] 27.33 kg/m2 Daisy Cioce HULLER OPERATOR.PLATEN GRINDER Work Phone: [facility] 04-15-2024 12:10-0500 Body temperature 97.81 [degF] Daisy Cioce HULLER OPERATOR.PLATEN GRINDER Work Phone: [facility] 04-15-2024 12:10-0500 Body weight 75.3 kg Daisy Cioce HULLER OPERATOR.PLATEN GRINDER Work Phone: [facility] 04-15-2024 12:10-0500 Diastolic blood pressure 92 mm[Hg] Daisy Cioce HULLER OPERATOR.PLATEN GRINDER Work Phone: [facility] 04-15-2024 12:10-0500 Heart rate 98 /min Daisy Cioce HULLER OPERATOR.PLATEN GRINDER Work Phone: [facility] 04-15-2024 12:10-0500 SaO2% (BldA) [Mass fraction] 98 % Daisy Cioce HULLER OPERATOR.PLATEN GRINDER Work Phone: [facility] 04-15-2024 12:10-0500 Systolic blood pressure 146 mm[Hg] Daisy Cioce HULLER OPERATOR.PLATEN GRINDER Work Phone: [facility] 04-13-2024 15:01-0500 Body temperature 97.3 [degF] Treatment Wstr Work Phone: [facility] 04-13-2024 15:01-0500 Diastolic blood pressure 92 mm[Hg] Treatment Wstr Work Phone: [facility] 04-13-2024 15:01-0500 Heart rate 98 /min Treatment Wstr Work Phone: [facility] 04-13-2024 15:01-0500 Respiratory rate 18 /min Treatment Wstr Work Phone: [facility] 04-13-2024 15:01-0500 SaO2% (BldA) [Mass fraction] 99 % Treatment Wstr Work Phone: [facility] 04-13-2024 15:01-0500 Systolic blood pressure 142 mm[Hg] Treatment Wstr Work Phone: [facility] 04-10-2024 08:59-0500 Body mass index (BMI) [Ratio] 28.15 kg/m2 Serena Carrasco DO Work Phone: [facility] 04-10-2024 08:59-0500 Body temperature 98.49 [degF] Serena Sandhui DO Work Phone: [facility] 04-10-2024 08:59-0500 Body weight 77.56 kg Serena Sandhui DO Work Phone: [facility] 04-10-2024 08:59-0500 Diastolic blood pressure 90 mm[Hg] Serena Sandhui DO Work Phone: [facility] 04-10-2024 08:59-0500 Heart rate 100 /min Serena Carrasco DO Work Phone: [facility] 04-10-2024 08:59-0500 SaO2% (BldA) [Mass fraction] 96 % Serena Carrasco DO Work Phone: [facility] 04-10-2024 08:59-0500 Systolic blood pressure 134 mm[Hg] Serena Carrasco DO Work Phone: [facility] 03-18-2024 14:22-0500 Diastolic blood pressure 88 mm[Hg] Jacinta Rivas MD Work Phone: [facility] 03-18-2024 14:22-0500 Systolic blood pressure 138 mm[Hg] Jacinta Rivas MD Work Phone: [facility] 03-18-2024 13:20-0500 Body height 166 cm Jacinta Rivas MD Work Phone: [facility] 03-18-2024 13:20-0500 Body mass index (BMI) [Ratio] 27.51 kg/m2 Jacinta Rivas MD Work Phone: [facility] 03-18-2024 13:20-0500 Body temperature 98.01 [degF] Jacinta Rivas MD Work Phone: [facility] 03-18-2024 13:20-0500 Body weight 75.8 kg Jacinta Rivas MD Work Phone: [facility] 03-18-2024 13:20-0500 Heart rate 82 /min Jacinta Rivas MD Work Phone: [facility] 03-18-2024 13:20-0500 Respiratory rate 16 /min Jacinta Rivas MD Work Phone: [facility] 03-18-2024 13:20-0500 SaO2% (BldA) [Mass fraction] 98 % Jacinta Rivas MD Work Phone: [facility] 02-05-2024 14:02-0400 Body height 164.5 cm Daisy Cioce HULLER OPERATOR.PLATEN GRINDER Work Phone: [facility] 02-05-2024 14:02-0400 Body mass index (BMI) [Ratio] 27.9 kg/m2 Daisy Cioce HULLER OPERATOR.PLATEN GRINDER Work Phone: [facility] 02-05-2024 14:02-0400 Body temperature 97.81 [degF] Daisy Cioce HULLER OPERATOR.PLATEN GRINDER Work Phone: [facility] 02-05-2024 14:02-0400 Body weight 75.48 kg Daisy Cioce HULLER OPERATOR.PLATEN GRINDER Work Phone: [facility] 02-05-2024 14:02-0400 Heart rate 81 /min Daisy Cioce HULLER OPERATOR.PLATEN GRINDER Work Phone: [facility] 02-05-2024 14:02-0400 SaO2% (BldA) [Mass fraction] 97 % Daisy Cioce HULLER OPERATOR.PLATEN GRINDER Work Phone: [facility] 01-06-2024 10:08-0400 Body mass index (BMI) [Ratio] 27.42 kg/m2 Serena Carrasco DO Work Phone: [facility] 01-06-2024 10:08-0400 Body temperature 98.49 [degF] Serena Carrasco DO Work Phone: [facility] 01-06-2024 10:08-0400 Body weight 74.16 kg Serena Masci DO Work Phone: [facility] 01-06-2024 10:08-0400 Diastolic blood pressure 96 mm[Hg] Serena Masci DO Work Phone: [facility] 01-06-2024 10:08-0400 Heart rate 92 /min Serena Masci DO Work Phone: [facility] 01-06-2024 10:08-0400 SaO2% (BldA) [Mass fraction] 97 % Serena Masci DO Work Phone: [facility] 01-06-2024 10:08-0400 Systolic blood pressure 168 mm[Hg] Serena Masci DO Work Phone: [facility] 11-11-2023 08:54-0400 Body mass index (BMI) [Ratio] 27.42 kg/m2 Serena Masci DO Work Phone: [facility] 11-11-2023 08:54-0400 Body temperature 98.4 [degF] Serena Masci DO Work Phone: [facility] 11-11-2023 08:54-0400 Body weight 74.16 kg Serena Masci DO Work Phone: [facility] 11-11-2023 08:54-0400 Diastolic blood pressure 77 mm[Hg] Serena Masci DO Work Phone: [facility] 11-11-2023 08:54-0400 Heart rate 92 /min Serena Masci DO Work Phone: [facility] 11-11-2023 08:54-0400 SaO2% (BldA) [Mass fraction] 99 % Serena Masci DO Work Phone: [facility] 11-11-2023 08:54-0400 Systolic blood pressure 118 mm[Hg] Serena Masci DO Work Phone: [facility] 10-23-2023 13:10-0400 Body mass index (BMI) [Ratio] 27.69 kg/m2 Lisbet Rona HULLER OPERATOR.PLATEN GRINDER Work Phone: [facility] 10-23-2023 13:10-0400 Body temperature 100.4 [degF] Lisbet Rona HULLER OPERATOR.PLATEN GRINDER Work Phone: [facility] 10-23-2023 13:10-0400 Body weight 74.89 kg Lisbet Rona HULLER OPERATOR.PLATEN GRINDER Work Phone: [facility] 10-23-2023 13:10-0400 Diastolic blood pressure 62 mm[Hg] Lisbet Rona HULLER OPERATOR.PLATEN GRINDER Work Phone: [facility] 10-23-2023 13:10-0400 Heart rate 120 /min Lisbet Rona HULLER OPERATOR.PLATEN GRINDER Work Phone: [facility] 10-23-2023 13:10-0400 Respiratory rate 16 /min Lisbet Rona HULLER OPERATOR.PLATEN GRINDER Work Phone: [facility] 10-23-2023 13:10-0400 SaO2% (BldA) [Mass fraction] 97 % Lisbet Rona HULLER OPERATOR.PLATEN GRINDER Work Phone: [facility] 10-23-2023 13:10-0400 Systolic blood pressure 98 mm[Hg] Lisbet Rona HULLER OPERATOR.PLATEN GRINDER Work Phone: [facility] 10-18-2023 17:28-0400 Body mass index (BMI) [Ratio] 28.1 kg/m2 Severino Moomaw HULLER OPERATOR.PLATEN GRINDER Work Phone: [facility] 10-18-2023 17:28-0400 Body temperature 98.29 [degF] Severino Moomaw HULLER OPERATOR.PLATEN GRINDER Work Phone: [facility] 10-18-2023 17:28-0400 Body weight 76 kg Severino Moomaw HULLER OPERATOR.PLATEN GRINDER Work Phone: [facility] 10-18-2023 17:28-0400 Diastolic blood pressure 82 mm[Hg] Severino Moomaw HULLER OPERATOR.PLATEN GRINDER Work Phone: [facility] 10-18-2023 17:28-0400 Heart rate 83 /min Severino Moomaw HULLER OPERATOR.PLATEN GRINDER Work Phone: [facility] 10-18-2023 [id number] Respiratory rate 20 /min Severino Moomaw HULLER OPERATOR.PLATEN GRINDER Work Phone: [facility] 10-18-2023 17:28-0400 SaO2% (BldA) [Mass fraction] 99 % Severino Moomaw HULLER OPERATOR.PLATEN GRINDER Work Phone: [facility] 10-18-2023 [id number] Systolic blood pressure 145 mm[Hg] Severino Moomaw HULLER OPERATOR.PLATEN GRINDER Work Phone: [facility] 08-05-2023 10:14-0400 Body mass index (BMI) [Ratio] 30.52 kg/m2 Serena Edsoni DO Work Phone: [facility] 08-05-2023 10:140400 Body temperature 98.6 [degF] Serena Masci DO Work Phone: [facility] 08-05-2023 10:14-0400 Body weight 82.56 kg Serena Masci DO Work Phone: [facility] 08-05-2023 10:14-0400 Diastolic blood pressure 78 mm[Hg] Serena Masci DO Work Phone: [facility] 08-05-2023 10:14-0400 Heart rate 87 /min Serena Masci DO Work Phone: [facility] 08-05-2023 10:14-0400 SaO2% (BldA) [Mass fraction] 99 % Serena Masci DO Work Phone: [facility] 08-05-2023 10:14-0400 Systolic blood pressure 149 mm[Hg] Serena Masci DO Work Phone: [facility] 07-16-2023 11:[id number] Body mass index (BMI) [Ratio] 30.22 kg/m2 Jacinta Rivas MD Work Phone: [facility] [id number] Body weight 81.74 kg Jacinta Rivas MD Work Phone: [facility] 07-16-2023 11:03-0400 Diastolic blood pressure 86 mm[Hg] Jacinta Rivas MD Work Phone: [facility] 07-16-2023 11:03-0400 Heart rate 90 /min Jacinta Rivas MD Work Phone: [facility] 07-16-2023 11:03-0400 SaO2% (BldA) [Mass fraction] 100 % Jacinta Rivas MD Work Phone: [facility] 07-16-2023 11:03-0400 Systolic blood pressure 122 mm[Hg] Jacinta Rivas MD Work Phone: [facility] 07-08-2023 20:35-0400 Body temperature 97.5 [degF] [facility] 07-08-2023 20:35-0400 Diastolic blood pressure 71 mm[Hg] [facility] 07-08-2023 20:35-0400 Heart rate 72 /min [facility] 07-08-2023 20:35-0400 Respiratory rate 15 /min [facility] 07-08-2023 20:35-0400 SaO2% (BldA) [Mass fraction] 97 % [facility] 07-08-2023 20:35-0400 Systolic blood pressure 132 mm[Hg] [facility] 07-08-2023 16:09-0400 Body height 167.64 cm [facility] 07-08-2023 16:09-0400 Body mass index (BMI) [Ratio] 29.9 kg/m2 [facility] 07-08-2023 16:09-0400 Body weight 84.36 kg [facility] 07-08-2023 15:00-0400 Body temperature 99.39 [degF] Carla Forbes HULLER OPERATOR.PLATEN GRINDER Work Phone: [facility] 07-08-2023 15:00-0400 Body weight 83.8 kg Carla Forbes HULLER OPERATOR.PLATEN GRINDER Work Phone: [facility] 07-08-2023 15:00-0400 Diastolic blood pressure 88 mm[Hg] Carla Forbes HULLER OPERATOR.PLATEN GRINDER Work Phone: [facility] 07-08-2023 15:00-0400 Heart rate 103 /min Carla Forbes HULLER OPERATOR.PLATEN GRINDER Work Phone: [facility] 07-08-2023 15:00-0400 Respiratory rate 19 /min Carla Forbes HULLER OPERATOR.PLATEN GRINDER Work Phone: [facility] 07-08-2023 15:00-0400 Systolic blood pressure 130 mm[Hg] Carla Forbes HULLER OPERATOR.PLATEN GRINDER Work Phone: [facility] 07-05-2023 09:04-0400 Body temperature 97.9 [degF] Michell David Work Phone: [facility] 07-05-2023 09:04-0400 Body weight 85.05 kg Micehll David Work Phone: [facility] 07-05-2023 09:04-0400 Diastolic blood pressure 85 mm[Hg] Michell David Work Phone: [facility] 07-05-2023 09:04-0400 Heart rate 93 /min Michell David Work Phone: [facility] 07-05-2023 09:04-0400 SaO2% (BldA) [Mass fraction] 98 % Michell David Work Phone: [facility] 07-05-2023 09:04-0400 Systolic blood pressure 131 mm[Hg] Michell David Work Phone: [facility] 03-05-2023 09:15-0500 Body temperature 98.1 [degF] Injection Wstr Work Phone: [facility] 03-05-2023 09:15-0500 Body weight 85.73 kg Injection Wstr Work Phone: [facility] 03-05-2023 09:15-0500 Diastolic blood pressure 78 mm[Hg] Injection Wstr Work Phone: [facility] 03-05-2023 09:15-0500 Heart rate 89 /min Injection Wstr Work Phone: [facility] 03-05-2023 09:15-0500 Systolic blood pressure 120 mm[Hg] Injection Wstr Work Phone: [facility] 12-26-2022 14:30-0400 Body temperature 97.81 [degF] Treatment Wstr Work Phone: [facility] 12-26-2022 14:30-0400 Diastolic blood pressure 81 mm[Hg] Treatment Wstr Work Phone: [facility] 12-26-2022 14:30-0400 Heart rate 81 /min Treatment Wstr Work Phone: [facility] 12-26-2022 14:30-0400 Systolic blood pressure 119 mm[Hg] Treatment Wstr Work Phone: [facility] 12-17-2022 15:18-0400 Body temperature 97.59 [degF] Serena Masci DO Work Phone: [facility] 12-17-2022 15:18-0400 Body weight 86.41 kg Serean Masci DO Work Phone: [facility] 12-17-2022 15:18-0400 Diastolic blood pressure 67 mm[Hg] Serena Masci DO Work Phone: [facility] 12-17-2022 15:18-0400 Heart rate 73 /min Serena Masci DO Work Phone: [facility] 12-17-2022 15:18-0400 SaO2% (BldA) [Mass fraction] 98 % Serena Masci DO Work Phone: [facility] 12-17-2022 15:18-0400 Systolic blood pressure 110 mm[Hg] Serena Masci DO Work Phone: [facility] 12-13-2022 09:29-0400 Body temperature 98.49 [degF] Injection Wstr Work Phone: [facility] 12-13-2022 09:29-0400 Body weight 85.28 kg Injection Wstr Work Phone: [facility] 12-13-2022 09:29-0400 Diastolic blood pressure 62 mm[Hg] Injection Wstr Work Phone: [facility] 12-13-2022 09:29-0400 Heart rate 57 /min Injection Wstr Work Phone: [facility] 12-13-2022 09:29-0400 Systolic blood pressure 103 mm[Hg] Injection Wstr Work Phone: [facility] 11-15-2022 09:24-0400 Body temperature 97 [degF] Injection Wstr Work Phone: [facility] 11-15-2022 09:24-0400 Body weight 86.64 kg Injection Wstr Work Phone: [facility] 11-15-2022 09:24-0400 Diastolic blood pressure 83 mm[Hg] Injection Wstr Work Phone: [facility] 11-15-2022 09:24-0400 Heart rate 82 /min Injection Wstr Work Phone: [facility] 11-15-2022 09:24-0400 Systolic blood pressure 119 mm[Hg] Injection Wstr Work Phone: [facility] 11-07-2022 10:08-0400 Body temperature 97.2 [degF] Treatment Wstr Work Phone: [facility] 11-07-2022 10:08-0400 Diastolic blood pressure 83 mm[Hg] Treatment Wstr Work Phone: [facility] 11-07-2022 10:08-0400 Heart rate 72 /min Treatment Wstr Work Phone: [facility] 11-07-2022 10:08-0400 SaO2% (BldA) [Mass fraction] 99 % Treatment Wstr Work Phone: [facility] 11-07-2022 10:08-0400 Systolic blood pressure 127 mm[Hg] Treatment Wstr Work Phone: [facility] 11-06-2022 13:32-0400 Body temperature 97.5 [degF] Treatment Wstr Work Phone: [facility] 11-06-2022 13:32-0400 Diastolic blood pressure 65 mm[Hg] Treatment Wstr Work Phone: [facility] 11-06-2022 13:32-0400 Heart rate 78 /min Treatment Wstr Work Phone: [facility] 11-06-2022 13:32-0400 Respiratory rate 18 /min Treatment Wstr Work Phone: [facility] 11-06-2022 13:32-0400 Systolic blood pressure 117 mm[Hg] Treatment Wstr Work Phone: [facility] 10-18-2022 09:30-0400 Body temperature 97.3 [degF] Injection Wstr Work Phone: [facility] 10-18-2022 09:30-0400 Body weight 87.54 kg Injection Wstr Work Phone: [facility] 10-18-2022 09:30-0400 Diastolic blood pressure 71 mm[Hg] Injection Wstr Work Phone: [facility] 10-18-2022 09:30-0400 Heart rate 75 /min Injection Wstr Work Phone: [facility] 10-18-2022 09:30-0400 Systolic blood pressure 102 mm[Hg] Injection Wstr Work Phone: [facility] 09-25-2022 12:27-0400 Diastolic blood pressure 80 mm[Hg] Treatment Wstr Work Phone: [facility] 09-25-2022 12:27-0400 Heart rate 75 /min Treatment Wstr Work Phone: [facility] 09-25-2022 12:27-0400 Systolic blood pressure 126 mm[Hg] Treatment Wstr Work Phone: [facility] 09-21-2022 13:23-0400 Body temperature 97.59 [degF] Treatment Wstr Work Phone: [facility] 09-21-2022 13:23-0400 Diastolic blood pressure 57 mm[Hg] Treatment Wstr Work Phone: [facility] 09-21-2022 13:23-0400 Heart rate 87 /min Treatment Wstr Work Phone: [facility] 09-21-2022 13:23-0400 Respiratory rate 16 /min Treatment Wstr Work Phone: [facility] 09-21-2022 13:23-0400 SaO2% (BldA) [Mass fraction] 100 % Treatment Wstr Work Phone: [facility] 09-21-2022 13:23-0400 Systolic blood pressure 125 mm[Hg] Treatment Wstr Work Phone: [facility] 09-20-2022 10:34-0400 Body temperature 97.2 [degF] Serena Masci DO Work Phone: [facility] 09-20-2022 10:34-0400 Body weight 89.36 kg Serena Masci DO Work Phone: [facility] 09-20-2022 10:34-0400 Diastolic blood pressure 57 mm[Hg] Serena Masci DO Work Phone: [facility] 09-20-2022 10:34-0400 Heart rate 91 /min Serena Masci DO Work Phone: [facility] 09-20-2022 10:34-0400 SaO2% (BldA) [Mass fraction] 97 % Serena Masci DO Work Phone: [facility] 09-20-2022 10:34-0400 Systolic blood pressure 91 mm[Hg] Serena Masci DO Work Phone: [facility] 09-06-2022 09:07-0400 Body temperature 97.9 [degF] Injection Wstr Work Phone: [facility] 09-06-2022 09:07-0400 Body weight 89.36 kg Injection Wstr Work Phone: [facility] 09-06-2022 09:07-0400 Diastolic blood pressure 74 mm[Hg] Injection Wstr Work Phone: [facility] 09-06-2022 09:07-0400 Heart rate 83 /min Injection Wstr Work Phone: [facility] 09-06-2022 09:07-0400 Systolic blood pressure 112 mm[Hg] Injection Wstr Work Phone: [facility] 08-13-2022 10:33-0400 Body height 167.6 cm Kam Dangelo MD Work Phone: [facility] 08-13-2022 10:33-0400 Body weight 92.08 kg Kam Dangelo MD Work Phone: [facility] 08-13-2022 10:33-0400 Diastolic blood pressure 87 mm[Hg] Kam Dangelo MD Work Phone: [facility] 08-13-2022 10:33-0400 Heart rate 70 /min Kam Dangelo MD Work Phone: [facility] 08-13-2022 10:33-0400 SaO2% (BldA) [Mass fraction] 98 % Kam Dangelo MD Work Phone: [facility] 08-13-2022 10:33-0400 Systolic blood pressure 144 mm[Hg] Kam Dangelo MD Work Phone: [facility] 08-09-2022 14:16-0400 Body height 167.6 cm Pacc 1 Work Phone: [facility] 08-09-2022 14:16-0400 Body temperature 97.5 [degF] Pacc 1 Work Phone: [facility] 08-09-2022 14:16-0400 Body weight 92.08 kg Pacc 1 Work Phone: [facility] 08-09-2022 14:16-0400 Diastolic blood pressure 69 mm[Hg] Pacc 1 Work Phone: [facility] 08-09-2022 14:16-0400 Heart rate 96 /min Pacc 1 Work Phone: [facility] 08-09-2022 14:16-0400 Respiratory rate 16 /min Pacc 1 Work Phone: [facility] 08-09-2022 14:16-0400 SaO2% (BldA) [Mass fraction] 97 % Pacc 1 Work Phone: [facility] 08-09-2022 14:16-0400 Systolic blood pressure 119 mm[Hg] Pacc 1 Work Phone: [facility] 08-01-2022 14:59-0400 Body height 165.5 cm Serena Masci DO Work Phone: [facility] 08-01-2022 14:59-0400 Body temperature 98.29 [degF] Serena Masci DO Work Phone: [facility] 08-01-2022 14:59-0400 Body weight 91.85 kg Serena Masci DO Work Phone: [facility] 08-01-2022 14:59-0400 Diastolic blood pressure 78 mm[Hg] Serena Masci DO Work Phone: [facility] 08-01-2022 14:59-0400 Heart rate 95 /min Serena Masci DO Work Phone: [facility] 08-01-2022 14:59-0400 SaO2% (BldA) [Mass fraction] 98 % Serena Masci DO Work Phone: [facility] 08-01-2022 14:59-0400 Systolic blood pressure 124 mm[Hg] Serena Masci DO Work Phone: [facility] 07-09-2022 11:06-0400 Body temperature 96.8 [degF] Treatment Wstr Work Phone: [facility] 07-09-2022 11:06-0400 Diastolic blood pressure 77 mm[Hg] Treatment Wstr Work Phone: [facility] 07-09-2022 11:06-0400 Heart rate 90 /min Treatment Wstr Work Phone: [facility] 07-09-2022 11:06-0400 Respiratory rate 18 /min Treatment Wstr Work Phone: [facility] 07-09-2022 11:06-0400 Systolic blood pressure 119 mm[Hg] Treatment Wstr Work Phone: [facility] 07-04-2022 09:54-0400 Body height 165.7 cm Serena Edsoni DO Work Phone: [facility] 07-04-2022 09:54-0400 Body temperature 97 [degF] Serena Edsoni DO Work Phone: [facility] 07-04-2022 09:54-0400 Body weight 91.63 kg Serena Masci DO Work Phone: [facility] 07-04-2022 09:54-0400 Diastolic blood pressure 81 mm[Hg] Serena Masci DO Work Phone: [facility] 07-04-2022 09:54-0400 Heart rate 80 /min Serena Edsoni DO Work Phone: [facility] 07-04-2022 09:54-0400 SaO2% (BldA) [Mass fraction] 94 % Serena Edsoni DO Work Phone: [facility] 07-04-2022 09:54-0400 Systolic blood pressure 118 mm[Hg] Serena Edsoni DO Work Phone: [facility] 02-19-2022 09:31-0500 Body height 166.4 cm Jacinta Rivas MD Work Phone: [facility] 02-19-2022 09:31-0500 Body weight 90.72 kg Jacinta Rivas MD Work Phone: [facility] 02-19-2022 09:31-0500 Diastolic blood pressure 78 mm[Hg] Jacinta Rivas MD Work Phone: [facility] 02-19-2022 09:31-0500 Heart rate 85 /min Jacinta Rivas MD Work Phone: [facility] 02-19-2022 09:31-0500 SaO2% (BldA) [Mass fraction] 98 % Jacinta Rivas MD Work Phone: [facility] 02-19-2022 09:31-0500 Systolic blood pressure 112 mm[Hg] Jacinta Rivas MD Work Phone: [facility] 02-05-2022 10:12-0400 Body temperature 99 [degF] Victoria Duarte APRN.[employer] Work Phone: [facility] 02-05-2022 10:12-0400 Body weight 91.44 kg Victoria Duarte APRN.[employer]ER Work Phone: [facility] 02-05-2022 10:12-0400 Diastolic blood pressure 92 mm[Hg] Victoria Duarte APRN.[employer]ER Work Phone: [facility] 02-05-2022 10:12-0400 Heart rate 95 /min Victoria Duarte APRN.[employer]ER Work Phone: [facility] 02-05-2022 10:12-0400 Respiratory rate 24 /min Victoria Duarte APRN.[employer]ER Work Phone: [facility] 02-05-2022 10:12-0400 SaO2% (BldA) [Mass fraction] 98 % Victoria Duarte APRN.[employer]ER Work Phone: [facility] 02-05-2022 10:12-0400 Systolic blood pressure 130 mm[Hg] Victoria Duarte APRN.[employer]ER Work Phone: [facility] 01-22-2022 11:00-0400 Body temperature 98.01 [degF] Treatment Wstr Work Phone: [facility] 01-22-2022 11:00-0400 Body weight 90.49 kg Treatment Wstr Work Phone: [facility] 01-22-2022 11:00-0400 Diastolic blood pressure 79 mm[Hg] Treatment Wstr Work Phone: [facility] 01-22-2022 11:00-0400 Heart rate 69 /min Treatment Wstr Work Phone: [facility] 01-22-2022 11:00-0400 Respiratory rate 18 /min Treatment Wstr Work Phone: [facility] 01-22-2022 11:00-0400 SaO2% (BldA) [Mass fraction] 98 % Treatment Wstr Work Phone: [facility] 01-22-2022 11:00-0400 Systolic blood pressure 115 mm[Hg] Treatment Wstr Work Phone: [facility] 08-07-2021 09:02-0400 Body temperature 97.3 [degF] Treatment Wstr Work Phone: [facility] 08-07-2021 09:02-0400 Diastolic blood pressure 86 mm[Hg] Treatment Wstr Work Phone: [facility] 08-07-2021 09:02-0400 Heart rate 72 /min Treatment Wstr Work Phone: [facility] 08-07-2021 09:02-0400 Systolic blood pressure 113 mm[Hg] Treatment Wstr Work Phone: [facility] 08-02-2021 09:00-0400 Body height 165.7 cm Serena Masci DO Work Phone: [facility] 08-02-2021 09:00-0400 Body temperature 98.71 [degF] Serena Masci DO Work Phone: [facility] 08-02-2021 09:00-0400 Body weight 90.27 kg Serena Masci DO Work Phone: [facility] 08-02-2021 09:00-0400 Diastolic blood pressure 75 mm[Hg] Serena Masci DO Work Phone: [facility] 08-02-2021 09:00-0400 Heart rate 86 /min Serena Masci DO Work Phone: [facility] 08-02-2021 09:00-0400 Systolic blood pressure 111 mm[Hg] Serena Masci DO Work Phone: [facility] 03-14-2017 11:48-0500 BMI (Body Mass Index) 30.46 kg/m2 Mindi Dasilva [facility] Work Phone: 03-14-2017 11:48-0500 Body weight 88.23 kg Mindi Dasilva [facility] Work Phone: 03-14-2017 11:48-0500 BP Diastolic 82 mm[Hg] [facility] Work Phone: Comment on above: Patient Position: Sitting; Cuff Location : Left Arm; Cuff Size: Large 03-14-2017 11:48-0500 BP Systolic 128 mm[Hg] Mindi Dasilva [facility] Work Phone: Comment on above: Patient Position: Sitting; Cuff Location : Left Arm; Cuff Size: Large 03-14-2017 11:48-0500 BSA (Body Surface Area) 2 m2 Mindi Dasilva [facility] Work Phone: 03-14-2017 11:48-0500 Height 170.18 cm Mindi Dasilva [facility] Work Phone: 03-14-2017 11:48-0500 Pulse (Heart Rate) 68 /min Mindi Dasilva [facility] Work Phone: Comment on above: Pattern: Regular 03-14-2017 11:48-0500 Pulse Oximetry 98 % Mindi Paredes [facility] Work Phone: Comment on above: Room air 03-14-2017 11:48-0500 Respiratory Rate 18 /min Mindi Paredes [facility] Work Phone: Comment on above: Pattern: Unlabored 03-14-2017 11:48-0500 Weight 88.23 kg Mindi Paredes [facility] Work Phone: 02-11-2017 11:50-0500 BMI (Body Mass Index) 30.44 kg/m2 Mindi Das[facility]va [facility] Work Phone: 02-11-2017 11:50-0500 Body weight 88.17 kg Mindi Paredes [facility] Work Phone: 02-11-2017 11:50-0500 BP Diastolic 72 mm[Hg] Mindi Dasilva [facility] Work Phone: Comment on above: Patient Position: Standing; Cuff Locatio n: Left Arm; Cuff Size: Large 02-11-2017 11:50-0500 BP Systolic 120 mm[Hg] Mindi Dasilva [facility] Work Phone: Comment on above: Patient Position: Standing; Cuff Locatio n: Left Arm; Cuff Size: Large 02-11-2017 11:50-0500 BSA (Body Surface Area) 2 m2 Mindi Dasilva [facility] Work Phone: 02-11-2017 11:50-0500 Height 170.18 cm Mindi Dasilva [facility] Work Phone: 02-11-2017 11:50-0500 Pulse (Heart Rate) 98 /min Mindi Dasilva [facility] Work Phone: Comment on above: Pattern: Regular 02-11-2017 11:50-0500 Pulse Oximetry 98 % Mindi Dasilva [facility] Work Phone: Comment on above: Room air 02-11-2017 11:50-0500 Respiratory Rate 18 /min Mindi Dasilva [facility] Work Phone: Comment on above: Pattern: Unlabored 02-11-2017 11:50-0500 Weight 88.17 kg Mindi Dasilva [facility] Work Phone: 07-28-2015 07:53-0400 BMI (Body Mass Index) 29.5 kg/m2 Mindi Dasilva [facility] Work Phone: 07-28-2015 07:53-0400 Body weight 85.45 kg Mindi Dasilva [facility] Work Phone: 07-28-2015 07:53-0400 BP Diastolic 78 mm[Hg] Mindi Dasilva [facility] Work Phone: Comment on above: Patient Position: Sitting; Cuff Location : Left Arm; Cuff Size: Large 07-28-2015 07:53-0400 BP Systolic 118 mm[Hg] Mindi Dasilva [facility] Work Phone: Comment on above: Patient Position: Sitting; Cuff Location : Left Arm; Cuff Size: Large 07-28-2015 07:53-0400 BSA (Body Surface Area) 1.97 m2 Mindi Dasilva [facility] Work Phone: 07-28-2015 07:53-0400 Height 170.18 cm Mindi Dasilva [facility] Work Phone: 07-28-2015 07:53-0400 Pulse (Heart Rate) 108 /min Mindi Dasilva [facility] Work Phone: Comment on above: Pattern: Regular 07-28-2015 07:53-0400 Pulse Oximetry 98 % Mindi Dasilva [facility] Work Phone: Comment on above: Room air 07-28-2015 07:53-0400 Respiratory Rate 18 /min Mindi Dasilva [facility] Work Phone: Comment on above: Pattern: Unlabored 07-28-2015 07:53-0400 Weight 85.45 kg Mindi Dasilva [facility] Work Phone: 07-18-2015 11:48-0400 BMI (Body Mass Index) 29.97 kg/m2 Mindi Dasilva [facility] Work Phone: 07-18-2015 11:48-0400 Body Temperature 98.7 [degF] Mindi Dasilva [facility] Work Phone: 07-18-2015 11:48-0400 Body weight 86.81 kg Mindi Dasilva [facility] Work Phone: 07-18-2015 11:48-0400 BP Diastolic 64 mm[Hg] Mindi Dasilva [facility] Work Phone: Comment on above: Patient Position: Sitting; Cuff Location : Left Arm; Cuff Size: Large 07-18-2015 11:48-0400 BP Systolic 120 mm[Hg] Mindi Dasilva [facility] Work Phone: Comment on above: Patient Position: Sitting; Cuff Location : Left Arm; Cuff Size: Large 07-18-2015 11:48-0400 BSA (Body Surface Area) 1.98 m2 Mindi Dasilva [facility] Work Phone: 07-18-2015 11:48-0400 Height 170.18 cm Mindi Dasilva [facility] Work Phone: 07-18-2015 11:48-0400 Pulse (Heart Rate) 87 /min Mindi Dasilva [facility] Work Phone: Comment on above: Pattern: Regular 07-18-2015 11:48-0400 Pulse Oximetry 94 % Mindi Dasilva [facility] Work Phone: Comment on above: Room air 07-18-2015 11:48-0400 Respiratory Rate 18 /min Mindi Dasilva [facility] Work Phone: Comment on above: Pattern: Unlabored 07-18-2015 11:48-0400 Weight 86.81 kg Mindi Dasilva [facility] Work Phone: 07-11-2015 14:56-0400 Body weight 86.81 kg Mindi Dasilva [facility] Work Phone: 07-11-2015 14:56-0400 BP Diastolic 80 mm[Hg] Mindi Dasilva [facility] Work Phone: 07-11-2015 14:56-0400 BP Systolic 128 mm[Hg] Mindi Das[facility]va [facility] Work Phone: 07-11-2015 14:56-0400 Pulse (Heart Rate) 89 /min Mindi Dasilva [facility] Work Phone: Comment on above: Pattern: Regular 07-11-2015 14:56-0400 Pulse Oximetry 96 % Mindi Dasilva [facility] Work Phone: Comment on above: Room air 07-11-2015 14:56-0400 Weight 86.81 kg Mindi Dasilva [facility] Work Phone: 06-13-2015 13:18-0500 Body Temperature 97.7 [degF] Mindi Dasilva [facility] Work Phone: Comment on above: Method: Temporal 06-13-2015 13:18-0500 Body weight 83.52 kg Mindi Paredes [facility] Work Phone: 06-13-2015 13:18-0500 BP Diastolic 62 mm[Hg] Mindi Dasilva [facility] Work Phone: Comment on above: Patient Position: Sitting; Cuff Location : Left Arm; Cuff Size: Large 06-13-2015 13:18-0500 BP Systolic 110 mm[Hg] Mindi Dasilva [facility] Work Phone: Comment on above: Patient Position: Sitting; Cuff Location : Left Arm; Cuff Size: Large 06-13-2015 13:18-0500 Pulse (Heart Rate) 81 /min Mindi Dasilva [facility] Work Phone: Comment on above: Pattern: Regular 06-13-2015 13:18-0500 Pulse Oximetry 99 % Mindi Dasilva [facility] Work Phone: Comment on above: Room air 06-13-2015 13:18-0500 Respiratory Rate 16 /min Mindi Dasilva [facility] Work Phone: Comment on above: Pattern: Unlabored 06-13-2015 13:18-0500 Weight 83.52 kg Mindi Dasilva [facility] Work Phone: 10-18-2014 09:46-0400 Body Temperature 97.2 [degF] Mindi Dasilva [facility] Work Phone: 10-18-2014 09:46-0400 Body weight 83.52 kg Mindi Dasilva [facility] Work Phone: 10-18-2014 09:46-0400 BP Diastolic 70 mm[Hg] Mindi Dasilva [facility] Work Phone: Comment on above: Patient Position: Sitting; Cuff Location : Left Arm; Cuff Size: Standard 10-18-2014 09:46-0400 BP Systolic 110 mm[Hg] Mindi Dasilva [facility] Work Phone: Comment on above: Patient Position: Sitting; Cuff Location : Left Arm; Cuff Size: Standard 10-18-2014 09:46-0400 Pulse (Heart Rate) 85 /min Mindi Dasilva [facility] Work Phone: Comment on above: Pattern: Regular 10-18-2014 09:46-0400 Pulse Oximetry 98 % Mindi Dasilva [facility] Work Phone: Comment on above: Room air 10-18-2014 09:46-0400 Respiratory Rate 16 /min Mindi Dasilva [facility] Work Phone: Comment on above: Pattern: Unlabored 10-18-2014 09:46-0400 Weight 83.52 kg Mindi Dasilva [facility] Work Phone: 07-16-2014 09:16-0400 Body Temperature 98.2 [degF] Mindi Dasilva [facility] Work Phone: 07-16-2014 09:16-0400 Body weight 83.01 kg Mindi Dasilva [facility] Work Phone: 07-16-2014 09:16-0400 BP Diastolic 80 mm[Hg] Mindi Dasilva [facility] Work Phone: Comment on above: Patient Position: Sitting; Cuff Location : Left Arm; Cuff Size: Standard 07-16-2014 09:16-0400 BP Systolic 118 mm[Hg] Mindi Dasilva [facility] Work Phone: Comment on above: Patient Position: Sitting; Cuff Location : Left Arm; Cuff Size: Standard 07-16-2014 09:16-0400 Pulse (Heart Rate) 85 /min Mindi Dasilva [facility] Work Phone: Comment on above: Pattern: Regular 07-16-2014 09:16-0400 Pulse Oximetry 98 % Mindi Dasilva [facility] Work Phone: Comment on above: Room air 07-16-2014 09:16-0400 Respiratory Rate 16 /min Mindi Dasilva [facility] Work Phone: Comment on above: Pattern: Unlabored 07-16-2014 09:16-0400 Weight 83.01 kg Mindi Dasilva [facility] Work Phone: 07-02-2014 09:08-0400 Body Temperature 98.2 [degF] Mindi Dasilva [facility] Work Phone: Comment on above: Method: Oral 07-02-2014 09:08-0400 Body weight 83.01 kg Mindi Paredes [facility] Work Phone: 07-02-2014 09:08-0400 BP Diastolic 88 mm[Hg] Mindi Dasilva [facility] Work Phone: Comment on above: Patient Position: Sitting; Cuff Location : Left Arm; Cuff Size: Standard 07-02-2014 09:08-0400 BP Systolic 146 mm[Hg] Mindi Dasilva [facility] Work Phone: Comment on above: Patient Position: Sitting; Cuff Location : Left Arm; Cuff Size: Standard 07-02-2014 09:08-0400 Pulse (Heart Rate) 70 /min Mindi Dasilva [facility] Work Phone: Comment on above: Pattern: Regular 07-02-2014 09:08-0400 Pulse Oximetry 98 % Mindi Dasilva [facility] Work Phone: Comment on above: Room air 07-02-2014 09:08-0400 Respiratory Rate 18 /min Mindi Dasilva [facility] Work Phone: 07-02-2014 09:08-0400 Weight 83.01 kg Mindi Dasilva [facility] Work Phone: 03-19-2014 08:56-0500 Body weight 83.01 kg Mindi Dasilva [facility] Work Phone: 03-19-2014 08:56-0500 BP Diastolic 88 mm[Hg] Mindi Dasilva [facility] Work Phone: Comment on above: Patient Position: Sitting; Cuff Location : Left Arm; Cuff Size: Large 03-19-2014 08:56-0500 BP Systolic 128 mm[Hg] Mindi Dasilva [facility] Work Phone: Comment on above: Patient Position: Sitting; Cuff Location : Left Arm; Cuff Size: Large 03-19-2014 08:56-0500 Pulse (Heart Rate) 76 /min Mindi Dasilva [facility] Work Phone: Comment on above: Pattern: Regular 03-19-2014 08:56-0500 Pulse Oximetry 98 % Mindi Dasilva [facility] Work Phone: Comment on above: Room air 03-19-2014 08:56-0500 Respiratory Rate 20 /min Mindi Dasilva [facility] Work Phone: Comment on above: Pattern: Unlabored 03-19-2014 08:56-0500 Weight 83.01 kg Mindi Dasilva [facility] Work Phone: 11-30-2013 10:13-0400 BMI (Body Mass Index) 29.06 kg/m2 Mindi Dasilva [facility] Work Phone: 11-30-2013 10:130400 Body weight 84.17 kg Mindi Dasilva [facility] Work Phone: 11-30-2013 10:13-0400 BP Diastolic 88 mm[Hg] Mindi Dasilva [facility] Work Phone: Comment on above: Patient Position: Sitting; Cuff Location : Left Arm; Cuff Size: Standard 11-30-2013 10:130400 BP Systolic 142 mm[Hg] Mindi Dasilva [facility] Work Phone: Comment on above: Patient Position: Sitting; Cuff Location : Left Arm; Cuff Size: Standard 11-30-2013 10:130400 BSA (Body Surface Area) 1.96 m2 Mindi Dasilva [facility] Work Phone: 11-30-2013 10:130400 Height 170.18 cm Mindi Dasilva [facility] Work Phone: 11-30-2013 10:13-0400 Pulse (Heart Rate) 86 /min Mindi Paredes [facility] Work Phone: Comment on above: Pattern: Regular 11-30-2013 10:13-0400 Pulse Oximetry 97 % Mindi Paredes [facility] Work Phone: Comment on above: Room air 11-30-2013 10:130400 Respiratory Rate 20 /min Mindi Paredes [facility] Work Phone: Comment on above: Pattern: Unlabored 11-30-2013 10:130400 Weight 84.17 kg Mindi Paredes [facility] Work Phone: 11-18-2013 15:19-0400 BMI (Body Mass Index) 29.29 kg/m2 Mindi Das[facility]va [facility] Work Phone: 11-18-2013 15:19-0400 Body Temperature 97 [degF] Mindi Paredes [facility] Work Phone: Comment on above: Method: Oral 11-18-2013 15:0400 Body weight 84.82 kg Mindi Paredes [facility] Work Phone: 11-18-2013 15:19-0400 BP Diastolic 82 mm[Hg] Mindi Dasilva [facility] Work Phone: Comment on above: Patient Position: Sitting; Cuff Location : Left Arm; Cuff Size: Standard 11-18-2013 15:19-0400 BP Systolic 146 mm[Hg] Mindi Paredes [facility] Work Phone: Comment on above: Patient Position: Sitting; Cuff Location : Left Arm; Cuff Size: Standard 11-18-2013 15:190400 BSA (Body Surface Area) 1.97 m2 Mindi Paredes [facility] Work Phone: 11-18-2013 15:19-0400 Height 170.18 cm Mindi Dasilva [facility] Work Phone: 11-18-2013 15:19-0400 Pulse (Heart Rate) 80 /min Mindi Paredes [facility] Work Phone: Comment on above: Pattern: Regular 11-18-2013 15:0400 Pulse Oximetry 98 % Mindi Dasilva [facility] Work Phone: Comment on above: Room air 11-18-2013 15:19-0400 Respiratory Rate 18 /min Mindi Paredes [facility] Work Phone: 11-18-2013 15:19-0400 Weight 84.82 kg Mindi Paredes [facility] Work Phone: 11-02-2013 09:38-0400 BMI (Body Mass Index) 29.29 kg/m2 Mindi Paredes [facility] Work Phone: 11-02-2013 09:38-0400 Body Temperature 97.4 [degF] Mindi Paredes [facility] Work Phone: Comment on above: Method: Oral 11-02-2013 09:38-0400 Body weight 84.82 kg Mindi Paredes [facility] Work Phone: 11-02-2013 09:38-0400 BP Diastolic 82 mm[Hg] Mindi Dasilva [facility] Work Phone: Comment on above: Patient Position: Sitting; Cuff Location : Left Arm; Cuff Size: Standard 11-02-2013 09:38-0400 BP Systolic 136 mm[Hg] Mindi Dasilva [facility] Work Phone: Comment on above: Patient Position: Sitting; Cuff Location : Left Arm; Cuff Size: Standard 11-02-2013 09:38-0400 BSA (Body Surface Area) 1.97 m2 Mindi Paredes [facility] Work Phone: 11-02-2013 09:38-0400 Height 170.18 cm Mindi Dasilva [facility] Work Phone: 11-02-2013 09:38-0400 Pulse (Heart Rate) 76 /min Mindi Paredes [facility] Work Phone: Comment on above: Pattern: Regular 11-02-2013 09:38-0400 Pulse Oximetry 98 % Mindi Paredes [facility] Work Phone: Comment on above: Room air 11-02-2013 09:38-0400 Weight 84.82 kg Mindi Paredes [facility] Work Phone: 10-14-2013 09:08-0400 BMI (Body Mass Index) 29.29 kg/m2 Mindi Das[facility]va [facility] Work Phone: 10-14-2013 09:08-0400 Body Temperature 97.4 [degF] Mindi Dasilva [facility] Work Phone: Comment on above: Method: Oral 10-14-2013 09:08-0400 Body weight 84.82 kg Mindi Paredes [facility] Work Phone: 10-14-2013 09:08-0400 BP Diastolic 92 mm[Hg] Mindi Dasilva [facility] Work Phone: Comment on above: Patient Position: Sitting; Cuff Location : Left Arm; Cuff Size: Standard 10-14-2013 09:08-0400 BP Systolic 144 mm[Hg] Mindi Dasilva [facility] Work Phone: Comment on above: Patient Position: Sitting; Cuff Location : Left Arm; Cuff Size: Standard 10-14-2013 09:08-0400 BSA (Body Surface Area) 1.97 m2 Mindi Das[facility]va [facility] Work Phone: 10-14-2013 09:08-0400 Height 170.18 cm Mindi Dasilva [facility] Work Phone: 10-14-2013 09:08-0400 Pulse (Heart Rate) 74 /min Mindi Dasilva [facility] Work Phone: Comment on above: Pattern: Regular 10-14-2013 09:08-0400 Pulse Oximetry 97 % Mindi Dasilva [facility] Work Phone: Comment on above: Room air 10-14-2013 09:08-0400 Weight 84.82 kg Mindi Paerdes [facility] Work Phone: 01-15-2013 11:42-0400 BMI (Body Mass Index) 28.72 kg/m2 Mindi Das[facility] Work Phone: 01-15-2013 11:42-0400 Body weight 83.18 kg Mindi Dasilva [facility] Work Phone: 01-15-2013 11:42-0400 BP Diastolic 98 mm[Hg] Mindi Dasilva [facility] Work Phone: Comment on above: Patient Position: Sitting; Cuff Location : Left Arm; Cuff Size: Large 01-15-2013 11:42-0400 BP Systolic 132 mm[Hg] Mindi Dasilva [facility] Work Phone: Comment on above: Patient Position: Sitting; Cuff Location : Left Arm; Cuff Size: Large 01-15-2013 11:42-0400 BSA (Body Surface Area) 1.95 m2 Mindi Dasilva [facility] Work Phone: 01-15-2013 11:42-0400 Height 170.18 cm Mindi Dasilva [facility] Work Phone: 01-15-2013 11:42-0400 Pulse (Heart Rate) 64 /min Mindi Dasilva [facility] Work Phone: Comment on above: Pattern: Regular 01-15-2013 11:42-0400 Respiratory Rate 18 /min Mindi Dasilva [facility] Work Phone: Comment on above: Pattern: Unlabored 01-15-2013 11:42-0400 Weight 83.18 kg Mindi Dasilva [facility] Work Phone: 10-11-2011 07:43-0400 BMI (Body Mass Index) 28.99 kg/m2 Mindi Dasilva [facility] Work Phone: 10-11-2011 07:43-0400 Body weight 83.97 kg Mindi Dasilva [facility] Work Phone: 10-11-2011 07:43-0400 BP Diastolic 82 mm[Hg] Mindi Dasilva [facility] Work Phone: Comment on above: Patient Position: Sitting; Cuff Location : Left Arm; Cuff Size: Large 10-11-2011 07:43-0400 BP Systolic 138 mm[Hg] Mindi Dasilva [facility] Work Phone: Comment on above: Patient Position: Sitting; Cuff Location : Left Arm; Cuff Size: Large 10-11-2011 07:43-0400 BSA (Body Surface Area) 1.96 m2 Mindi Dasilva [facility] Work Phone: 10-11-2011 07:43-0400 Height 170.18 cm Mindi Dasilva [facility] Work Phone: 10-11-2011 07:43-0400 Pulse (Heart Rate) 68 /min Mindi Dasilva [facility] Work Phone: Comment on above: Pattern: Regular 10-11-2011 07:43-0400 Respiratory Rate 18 /min Mindi Dasilva [facility] Work Phone: Comment on above: Pattern: Unlabored 10-11-2011 07:43-0400 Weight 83.97 kg Mindi Dasilva [facility] Work Phone: 08-29-2011 16:06-0400 BMI (Body Mass Index) 28.85 kg/m2 Mindi Dasilva [facility] Work Phone: 08-29-2011 16:06-0400 Body weight 83.55 kg Mindi Dasilva [facility] Work Phone: 08-29-2011 16:06-0400 BP Diastolic 98 mm[Hg] Mindi Dasilva [facility] Work Phone: Comment on above: Patient Position: Sitting; Cuff Location : Left Arm; Cuff Size: Large 08-29-2011 16:06-0400 BP Systolic 140 mm[Hg] Mindi Dasilva [facility] Work Phone: Comment on above: Patient Position: Sitting; Cuff Location : Left Arm; Cuff Size: Large 08-29-2011 16:06-0400 BSA (Body Surface Area) 1.95 m2 Mindi Dasilva [facility] Work Phone: 08-29-2011 16:06-0400 Height 170.18 cm Mindi Dasilva [facility] Work Phone: 08-29-2011 16:06-0400 Pulse (Heart Rate) 60 /min Mindi Dasilva [facility] Work Phone: Comment on above: Pattern: Regular 08-29-2011 16:06-0400 Respiratory Rate 16 /min Mindi Dasilva [facility] Work Phone: Comment on above: Pattern: Unlabored 08-29-2011 16:06-0400 Weight 83.55 kg Mindi Dasilva [facility] Work Phone: 08-01-2011 10:51-0400 BMI (Body Mass Index) 29.13 kg/m2 Mindi Dasilva [facility] Work Phone: 08-01-2011 10:51-0400 Body Temperature 99 [degF] Mindi Dasilva [facility] Work Phone: 08-01-2011 10:51-0400 Body weight 84.37 kg Mindi Dasilva [facility] Work Phone: 08-01-2011 10:51-0400 BP Diastolic 90 mm[Hg] Mindi Dasilva [facility] Work Phone: Comment on above: Patient Position: Sitting; Cuff Location : Left Arm; Cuff Size: Standard 08-01-2011 10:51-0400 BP Systolic 150 mm[Hg] Mindi Dasilva [facility] Work Phone: Comment on above: Patient Position: Sitting; Cuff Location : Left Arm; Cuff Size: Standard 08-01-2011 10:51-0400 BSA (Body Surface Area) 1.96 m2 Mindi Dasilva [facility] Work Phone: 08-01-2011 10:51-0400 Height 170.18 cm Mindi Dasilva [facility] Work Phone: 08-01-2011 10:51-0400 Pulse (Heart Rate) 68 /min Mindi Dasilva [facility] Work Phone: Comment on above: Pattern: Regular 08-01-2011 10:51-0400 Respiratory Rate 16 /min Mindi Dasilva [facility] Work Phone: Comment on above: Pattern: Unlabored 08-01-2011 10:51-0400 Weight 84.37 kg Mindi Paredes Internal Medicine Work Phone: 11-10-2010 13:31-0400 BMI (Body Mass Index) 29.2 kg/m2 Mindi Pardees Internal [facility] Work Phone: 11-10-2010 13:31-0400 Body Temperature 98.6 [degF] Mindi Dasilva [facility] Work Phone: Comment on above: Method: Oral 11-10-2010 13:31-0400 Body weight 84.57 kg Mindi Paredes Internal Medicine Work Phone: 11-10-2010 13:31-0400 BP Diastolic 86 mm[Hg] Mindi Dasilva [facility] Work Phone: Comment on above: Patient Position: Sitting; Cuff Location : Right Arm; Cuff Size: Standard 11-10-2010 13:31-0400 BP Systolic 122 mm[Hg] Mindi Dasilva [facility] Work Phone: Comment on above: Patient Position: Sitting; Cuff Location : Right Arm; Cuff Size: Standard 11-10-2010 13:31-0400 BSA (Body Surface Area) 1.96 m2 Mindi Dasilva [facility] Work Phone: 11-10-2010 13:31-0400 Height 170.18 cm Mindi Paredes Internal Medicine Work Phone: 11-10-2010 13:31-0400 Pulse (Heart Rate) 80 /min Mindi Dasilva [facility] Work Phone: Comment on above: Pattern: Regular 11-10-2010 13:31-0400 Respiratory Rate 20 /min Mindi Dasilva [facility] Work Phone: Comment on above: Pattern: Unlabored 11-10-2010 13:31-0400 Weight 84.57 kg Mindi Paredes Internal Medicine Work Phone: 10-10-2010 09:23-0400 BMI (Body Mass Index) 28.87 kg/m2 Mindi Dasilva [facility] Work Phone: 10-10-2010 09:23-0400 Body weight 83.6 kg Mindi Dasilva [facility] Work Phone: 10-10-2010 09:23-0400 BP Diastolic 90 mm[Hg] Mindi Dasliva [facility] Work Phone: Comment on above: Patient Position: Sitting; Cuff Location : Left Arm; Cuff Size: Large 10-10-2010 09:23-0400 BP Systolic 128 mm[Hg] Mindi Dasilva [facility] Work Phone: Comment on above: Patient Position: Sitting; Cuff Location : Left Arm; Cuff Size: Large 10-10-2010 09:23-0400 BSA (Body Surface Area) 1.95 m2 Mindi Dasilva [facility] Work Phone: 10-10-2010 09:23-0400 Height 170.18 cm Mindi Dasilva [facility] Work Phone: 10-10-2010 09:23-0400 Pulse (Heart Rate) 72 /min Mindi Dasilva [facility] Work Phone: Comment on above: Pattern: Regular 10-10-2010 09:23-0400 Respiratory Rate 18 /min Mindi Dasilva [facility] Work Phone: Comment on above: Pattern: Unlabored 10-10-2010 09:23-0400 Weight 83.6 kg Mindi Dasilva [facility] Work Phone: 04-21-2010 14:07-0500 Body Temperature 97.9 [degF] Mindi Dasilva [facility] Work Phone: Comment on above: Method: Oral 04-21-2010 14:07-0500 Body weight 85.39 kg Mindi Dasilva [facility] Work Phone: 04-21-2010 14:07-0500 BP Diastolic 78 mm[Hg] Mindi Dasilva [facility] Work Phone: Comment on above: Patient Position: Sitting; Cuff Location : Left Arm; Cuff Size: Large 04-21-2010 14:07-0500 BP Systolic 128 mm[Hg] Mindi [facility] Work Phone: Comment on above: Patient Position: Sitting; Cuff Location : Left Arm; Cuff Size: Large 04-21-2010 14:07-0500 Pulse (Heart Rate) 68 /min Mindi Dasilva [facility] Work Phone: Comment on above: Pattern: Regular 04-21-2010 14:07-0500 Respiratory Rate 20 /min Mindi Dasilva [facility] Work Phone: Comment on above: Pattern: Unlabored 04-21-2010 14:07-0500 Weight 85.39 kg Mindi Dasilva [facility] Work Phone: 04-17-2010 15:49-0500 Body Temperature 98.4 [degF] Mindi Dasilva [facility] Work Phone: Comment on above: Method: Oral 04-17-2010 15:49-0500 Body weight 85.39 kg Mindi Dasilva [facility] Work Phone: 04-17-2010 15:49-0500 BP Diastolic 84 mm[Hg] Mindi Dasilva [facility] Work Phone: Comment on above: Patient Position: Sitting; Cuff Location : Left Arm; Cuff Size: Large 04-17-2010 15:49-0500 BP Systolic 122 mm[Hg] Mindi Dasilva [facility] Work Phone: Comment on above: Patient Position: Sitting; Cuff Location : Left Arm; Cuff Size: Large 04-17-2010 15:49-0500 Pulse (Heart Rate) 68 /min Mindi Dasilva [facility] Work Phone: Comment on above: Pattern: Regular 04-17-2010 15:49-0500 Respiratory Rate 20 /min Mindi Dasilva [facility] Work Phone: Comment on above: Pattern: Unlabored 04-17-2010 15:49-0500 Weight 85.39 kg Mindi Dasilva [facility] Work Phone: 09-19-2009 13:28-0400 Body Temperature 98 [degF] Mindi Dasilva [facility] Work Phone: Comment on above: Method: Oral 09-19-2009 13:28-0400 Body weight 85.39 kg Mindi Paredes Internal Medicine Work Phone: 09-19-2009 13:28-0400 BP Diastolic 68 mm[Hg] Mindi Dasilva [facility] Work Phone: Comment on above: Patient Position: Sitting; Cuff Location : Left Arm; Cuff Size: Standard 09-19-2009 13:28-0400 BP Systolic 120 mm[Hg] Mindi Dasilva [facility] Work Phone: Comment on above: Patient Position: Sitting; Cuff Location : Left Arm; Cuff Size: Standard 09-19-2009 13:28-0400 Pulse (Heart Rate) 70 /min Mindi Dasilva [facility] Work Phone: Comment on above: Pattern: Regular 09-19-2009 13:28-0400 Respiratory Rate 18 /min Mindi Dasilva [facility] Work Phone: Comment on above: Pattern: Unlabored 09-19-2009 13:28-0400 Weight 85.39 kg Mindi Dasilva [facility] Work Phone: 09-09-2009 12:18-0400 BMI (Body Mass Index) 40.47 kg/m2 Mindi Dasilva [facility] Work Phone: 09-09-2009 12:18-0400 Body weight 84.82 kg Mindi Dasilva [facility] Work Phone: 09-09-2009 12:18-0400 BP Diastolic 84 mm[Hg] Mindi Dasilva [facility] Work Phone: Comment on above: Patient Position: Sitting; Cuff Location : Left Arm; Cuff Size: Large 09-09-2009 12:18-0400 BP Systolic 120 mm[Hg] Mindi Dasilva [facility] Work Phone: Comment on above: Patient Position: Sitting; Cuff Location : Left Arm; Cuff Size: Large 09-09-2009 12:18-0400 BSA (Body Surface Area) 1.75 m2 Mindi Paredes Internal [facility] Work Phone: 09-09-2009 12:18-0400 Height 144.78 cm Mindi Paredes Internal [facility] Work Phone: 09-09-2009 12:18-0400 Pulse (Heart Rate) 68 /min Mindi Paredes [facility] Work Phone: Comment on above: Pattern: Regular 09-09-2009 12:18-0400 Respiratory Rate 20 /min Mindi Dasilva [facility] Work Phone: Comment on above: Pattern: Unlabored 09-09-2009 12:18-0400 Weight 84.82 kg Mindi Dasilva [facility] Work Phone: 01-28-2009 10:33-0400 Body Temperature 100.4 [degF] Mindi Dasilva [facility] Work Phone: Comment on above: Method: Oral 01-28-2009 10:33-0400 Body weight 0 kg Mindi Dasilva [facility] Work Phone: 01-28-2009 10:33-0400 BP Diastolic 78 mm[Hg] Mindi Dasilva [facility] Work Phone: Comment on above: Patient Position: Sitting; Cuff Location : Left Arm; Cuff Size: Standard 01-28-2009 10:33-0400 BP Systolic 118 mm[Hg] Mindi Dasilva [facility] Work Phone: Comment on above: Patient Position: Sitting; Cuff Location : Left Arm; Cuff Size: Standard 01-28-2009 10:33-0400 Head Circumference 0 cm Mindi Dasilva [facility] Work Phone: 01-28-2009 10:33-0400 Height 0 cm Mindi Dasilva [facility] Work Phone: 01-28-2009 10:33-0400 Pulse (Heart Rate) 78 /min Mindi Paredes [facility] Work Phone: Comment on above: Pattern: Regular 01-28-2009 10:33-0400 Respiratory Rate 16 /min Mindi Paredes [facility] Work Phone: Comment on above: Pattern: Unlabored 01-28-2009 10:33-0400 Weight 0 kg Mindi Paredes [facility] Work Phone: 05-11-2008 14:48-0500 Body Temperature 99.1 [degF] Mindi Paredes [facility] Work Phone: Comment on above: Method: Oral 05-11-2008 14:48-0500 Body weight 83.92 kg Mindi Paredes [facility] Work Phone: 05-11-2008 14:48-0500 BP Diastolic 68 mm[Hg] Mindi Dasilva [facility] Work Phone: Comment on above: Patient Position: Sitting; Cuff Location : Left Arm; Cuff Size: Standard 05-11-2008 14:48-0500 BP Systolic 116 mm[Hg] Mindi Dasilva [facility] Work Phone: Comment on above: Patient Position: Sitting; Cuff Location : Left Arm; Cuff Size: Standard 05-11-2008 14:48-0500 Head Circumference 0 cm Mindi Dasilva [facility] Work Phone: 05-11-2008 14:48-0500 Height 0 cm Mindi Paredes [facility] Work Phone: 05-11-2008 14:48-0500 Pulse (Heart Rate) 68 /min Mindi Paredes [facility] Work Phone: Comment on above: Pattern: Regular 05-11-2008 14:48-0500 Pulse Oximetry 97 % Mindi Paredes [facility] Work Phone: Comment on above: Room air 05-11-2008 14:48-0500 Respiratory Rate 18 /min Mindi Paredes [facility] Work Phone: Comment on above: Pattern: Unlabored 05-11-2008 14:48-0500 Weight 83.92 kg Mindi Paredes [facility] Work Phone: 09-04-2007 09:43-0400 BMI (Body Mass Index) 30.71 kg/m2 Mindi Dasilva [facility] Work Phone: 09-04-2007 09:43-0400 Body weight 86.3 kg Mindi Dasilva [facility] Work Phone: 09-04-2007 09:43-0400 BP Diastolic 88 mm[Hg] Mindi Dasilva [facility] Work Phone: Comment on above: Patient Position: Sitting; Cuff Location : Left Arm; Cuff Size: Standard 09-04-2007 09:43-0400 BP Systolic 138 mm[Hg] Mindi Dasilva [facility] Work Phone: Comment on above: Patient Position: Sitting; Cuff Location : Left Arm; Cuff Size: Standard 09-04-2007 09:43-0400 BSA (Body Surface Area) 1.96 m2 Mindi Dasilva [facility] Work Phone: 09-04-2007 09:43-0400 Head Circumference 0 cm Mindi Dasilva [facility] Work Phone: 09-04-2007 09:43-0400 Height 167.64 cm Mindi Dasilva [facility] Work Phone: 09-04-2007 09:43-0400 Pulse (Heart Rate) 72 /min Mindi Dasilva [facility] Work Phone: Comment on above: Pattern: Regular 09-04-2007 09:43-0400 Respiratory Rate 20 /min Mindi Dasilva [facility] Work Phone: Comment on above: Pattern: Unlabored 09-04-2007 09:43-0400 Weight 86.3 kg Mindi Dasilva [facility] Work Phone: 03-07-2007 09:42-0500 BMI (Body Mass Index) 30.4 kg/m2 Mindi Dasilva [facility] Work Phone: 03-07-2007 09:42-0500 Body weight 85.45 kg Mindi Dasilva [facility] Work Phone: 03-07-2007 09:42-0500 BP Diastolic 70 mm[Hg] Mindi Dasilva [facility] Work Phone: Comment on above: Patient Position: Sitting; Cuff Location : Left Arm; Cuff Size: Standard 03-07-2007 09:42-0500 BP Systolic 118 mm[Hg] Mindi Dasilva [facility] Work Phone: Comment on above: Patient Position: Sitting; Cuff Location : Left Arm; Cuff Size: Standard 03-07-2007 09:42-0500 BSA (Body Surface Area) 1.95 m2 Mindi Dasilva [facility] Work Phone: 03-07-2007 09:42-0500 Head Circumference 0 cm Mindi Dasilva [facility] Work Phone: 03-07-2007 09:42-0500 Height 167.64 cm Mindi Dasilva [facility] Work Phone: 03-07-2007 09:42-0500 Pulse (Heart Rate) 64 /min Mindi Dasilva [facility] Work Phone: Comment on above: Pattern: Regular 03-07-2007 09:42-0500 Respiratory Rate 16 /min Mindi Dasilva [facility] Work Phone: Comment on above: Pattern: Unlabored 03-07-2007 09:42-0500 Weight 85.45 kg Mindi Dasilva [facility] Work Phone: 09-04-2006 09:20-0400 BMI (Body Mass Index) 30.51 kg/m2 Mindi Dasilva [facility] Work Phone: 09-04-2006 09:20-0400 Body Temperature 98.3 [degF] Midni Dasilva [facility] Work Phone: Comment on above: Method: Oral 09-04-2006 09:20-0400 Body weight 85.73 kg Mindi Dasilva [facility] Work Phone: 09-04-2006 09:20-0400 BP Diastolic 76 mm[Hg] Mindi Dasilva [facility] Work Phone: Comment on above: Patient Position: Sitting; Cuff Location : Left Arm; Cuff Size: Standard 09-04-2006 09:20-0400 BP Systolic 122 mm[Hg] Mindi Dasilva [facility] Work Phone: Comment on above: Patient Position: Sitting; Cuff Location : Left Arm; Cuff Size: Standard 09-04-2006 09:20-0400 BSA (Body Surface Area) 1.95 m2 Mindi Dasilva [facility] Work Phone: 09-04-2006 09:20-0400 Head Circumference 0 cm Mindi Dasilva [facility] Work Phone: 09-04-2006 09:20-0400 Height 167.64 cm Mindi Dasilva [facility] Work Phone: 09-04-2006 09:20-0400 Pulse (Heart Rate) 70 /min Mindi Dasilva [facility] Work Phone: Comment on above: Pattern: Regular 09-04-2006 09:20-0400 Respiratory Rate 17 /min Mindi Dasilva [facility] Work Phone: Comment on above: Pattern: Unlabored 09-04-2006 09:20-0400 Weight 85.73 kg Mindi Dasilva [facility] Work Phone: 07-18-2006 09:30-0400 BMI (Body Mass Index) 30.51 kg/m2 Mindi Dasilva [facility] Work Phone: 07-18-2006 09:30-0400 Body Temperature 98.4 [degF] Mindi Dasilva [facility] Work Phone: Comment on above: Method: Undefined 07-18-2006 09:30-0400 Body weight 85.73 kg Mindi Dasilva [facility] Work Phone: 07-18-2006 09:30-0400 BP Diastolic 74 mm[Hg] Mindi Dasilva [facility] Work Phone: Comment on above: Patient Position: Sitting; Cuff Location : Left Arm; Cuff Size: Standard 07-18-2006 09:30-0400 BP Systolic 126 mm[Hg] [facility] Work Phone: Comment on above: Patient Position: Sitting; Cuff Location : Left Arm; Cuff Size: Standard 07-18-2006 09:30-0400 BSA (Body Surface Area) 1.95 m2 Mindi Dasilva [facility] Work Phone: 07-18-2006 09:30-0400 Head Circumference 0 cm [facility] Work Phone: 07-18-2006 09:30-0400 Height 167.64 cm [facility] Work Phone: 07-18-2006 09:30-0400 Weight 85.73 kg [facility] Work Phone: 06-27-2006 10:27-0400 BMI (Body Mass Index) 30.51 kg/m2 [facility] Work Phone: 06-27-2006 10:27-0400 Body Temperature 98.1 [degF] [facility] Work [facility]: Comment on above: Method: Undefined 06-27-2006 10:27-0400 Body weight 85.73 kg [facility] Work Phone: 06-27-2006 10:27-0400 BP Diastolic 64 mm[Hg] [facility] Work Phone: Comment on above: Patient Position: Undefined; Cuff Locati on: Undefined; Cuff Size: Undefined 06-27-2006 10:27-0400 BP Systolic 132 mm[Hg] [facility] Work Phone: Comment on above: Patient Position: Undefined; Cuff Locati on: Undefined; Cuff Size: Undefined 06-27-2006 10:27-0400 BSA (Body Surface Area) 1.95 m2 [facility] Work Phone: 06-27-2006 10:27-0400 Head Circumference 0 cm [facility] Work Phone: 06-27-2006 10:27-0400 Height 167.64 cm Mindi Dasilva [facility] Work Phone: 06-27-2006 10:040 Pulse (Heart Rate) 68 /min Mindi Dasilva [facility] Work Phone: Comment on above: Pattern: Regular 06-27-2006 10: Respiratory Rate 16 /min Mindi Dasilva [facility] Work Phone: Comment on above: Pattern: Undefined 06-27-2006 10: Weight 85.73 kg Mindi Dasilva [facility] Work Phone: Encounters Encounter Date Encounter Type Care Provider Facility Start: 11-19-2024 ambulatory Paulo Salazar Facility :[facility] Start: 11-13-2024 End: 11-13-2024 [facility] Start: 11-10-2024 End: 11-10-2024 ambulatory JACINTA RIVAS Facility:[facility] Start: 11-09-2024 End: 11-09-2024 ambulatory MILAGROS BROWN Facility:[id number] Start: 11-09-2024 End: 11-09-2024 ambulatory Treatment Rm 15 Adrian [facility] Work Phone: Hematology/Oncology Comment on above: Malignant neoplasm o f left breast in female, estrogen receptor positive, unspecified site of breast (HCC) (Primary Dx); 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); Malignant neoplasm of lower-outer quadrant of left breast of female, estrogen receptor positive (HCC); 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 lymph node (HCC) Start: 11-06-2024 End: 11-06-2024 Telephone encounter Daisy Titus APRN.[employer] GRINDER Work Phone: Endocrinology Comment on above: Insurance Authorizat ion (Approval - tirzepatide (MOUNJARO) 2.5 mg/0.5 mL pen injector [[employer]]) Start: 11-06-2024 End: 11-06-2024 ambulatory Noe Jackson BACK WEDGER Work Phone: [facility] [place] Comment on above: Lymphedema of left a rm (Primary Dx) Start: 11-05-2024 End: 11-05-2024 Refill Daisy Titus APRN.[employer]AT[employer] GRINDER Work Phone: Endocrinology Start: 11-04-2024 End: 11-04-2024 ambulatory Noe Harig BACK WEDGER Work Phone: [facility] [place] Comment on above: Lymphedema of left a rm (Primary Dx) Start: 11-02-2024 End: 11-02-2024 Patient encounter procedure Paulo Salazar [place] [facility] Work Phone: Start: 11-02-2024 End: 11-02-[address] Jacinta Rivas MD Work Phone: [facility] Start: 10-30-2024 End: 10-30-2024 Office outpatient visit 25 minutes Serena Carrasco DO Work Phone: Hematology/Oncology Comment on above: Malignant neoplasm o f left breast in female, estrogen receptor positive, unspecified site of breast (HCC) (Primary Dx); 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); 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 lymph node (HCC); Chemotherapy-induced cardiomyopathy (HCC); Lymphedema of left arm; Malignant neoplasm of female breast, unspecified estrogen receptor status, unspecified laterality, unspecified site of breast (HCC) Start: 10-30-2024 End: 10-30-2024 ambulatory Noe Harig BACK [employer]GER Work Phone: [facility] [place] Comment on above: Lymphedema of left a rm (Primary Dx) Start: 10-28-2024 End: 10-28-2024 ambulatory Noe Harig BACK [employer]GER Work Phone: [facility] [place] Comment on above: Lymphedema of left a rm (Primary Dx) Start: 10-27-2024 End: 10-27-2024 ambulatory JACINTA RIVAS Facility:[facility] Start: 10-26-2024 End: 10-26-2024 Patient encounter procedure Lisbet Pizano APRN.[employer] GRINDER Work Phone: Internal Medicine [place] Comment on above: Lymphedema of left a rm (Primary Dx); Urinary tract infection with hematuria, site unspecified; Renal insufficiency Start: 10-26-2024 End: 10-26-2024 ambulatory JACINTA North MARCORICARDO Facility:[facility] Start: 10-26-2024 ambulatory SERENA SANDHUEstelle Facility:[facility] [place] Start: 10-26-2024 End: 10-26-2024 Subsequent hospital visit by physician [facility] Comment on above: Malignant neoplasm o f left breast in female, estrogen receptor positive, unspecified site of breast (HCC) [C50.912, Z17.0] Start: 10-22-2024 End: 10-22-2024 ambulatory Noe Jackson BACK WEDGER Work Phone: [employer] [place] Comment on above: Lymphedema of left a rm (Primary Dx) Start: 10-21-2024 End: 10-21-2024 ambulatory Noe Jackson BACK WEDGER Work Phone: [facility] [place] Comment on above: Lymphedema of left a rm (Primary Dx) Start: 10-15-2024 End: 10-15-2024 Patient encounter procedure Mino Beard HULLER OPERATOR.PLATEN GRINDER Work Phone: Plastic Surgery Comment on above: History of breast re construction (Primary Dx); History of breast cancer; Lymphedema; Cellulitis of left upper limb Start: 10-15-2024 End: 10-15-2024 ambulatory JACINTA RIVAS Facility:[facility] Start: 10-15-2024 End: 10-15-2024 ambulatory Noe Jackson BACK WEDGER Work Phone: [facility] [place] Comment on above: Lymphedema of left a rm (Primary Dx) Start: 10-14-2024 End: 10-14-2024 Patient encounter procedure Daisy Titus HULLER OPERATOR.PLATEN GRINDER Work Phone: Endocrinology Comment on above: Diabetes mellitus tr eated with insulin (HCC) (Primary Dx) Start: 10-14-2024 End: 10-14-2024 ambulatory DAISY TITUS Facility:[facility] Start: 10-13-2024 End: 10-13-2024 Patient encounter procedure Lisbet Rona HULLER OPERATOR.PLATEN GRINDER Work Phone: Internal Medicine [place] Comment on above: Urinary tract infect ion with hematuria, site unspecified (Primary Dx); Lymphedema of left arm; Cellulitis of left upper extremity Start: 10-13-2024 End: 10-13-2024 ambulatory LISBET PIZANO Facility:[facility] Start: 10-13-2024 End: 10-13-2024 ambulatory Noe Jackson BACK WEDGER Work Phone: [facility] [place] Comment on above: Lymphedema of left a rm (Primary Dx) Start: 10-12-2024 End: 10-13-2024 Telephone encounter Jacinta Rivas MD Work Phone: Internal Medicine [place] Comment on above: Results Start: 10-07-2024 End: 10-07-2024 ambulatory JACINTA RIVAS Facility:[facility] Start: 10-07-2024 End: 10-07-2024 Patient encounter procedure Tatianna Crook [facility] Work Phone: [facility] Comment on above: Type 2 diabetes yolanda itus without complication, unspecified 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 insulin use (HCC) (Primary Dx) Start: 10-07-2024 End: 10-07-2024 Telemedicine consultation with patient Tatianna Crook [facility] Work Phone: [facility] Start: 10-07-2024 End: 10-07-2024 ambulatory CATHY BURR Facility:[facility] Start: 10-07-2024 End: 10-07-2024 ambulatory Milagros Brown PT [facility] [place] Comment on above: Lymphedema of left a rm (Primary Dx) Start: 10-05-2024 End: 10-06-2024 Telephone encounter Micki Marcelino MD Work Phone: Plastic Surgery Start: 09-25-2024 End: 09-25-2024 Telephone encounter Cathy Burr APRN.FLOORING MACHINE FEEDER Work Phone: Internal Medicine [place] Comment on above: Results Start: 09-24-2024 End: 09-28-2024 Telephone encounter Serena Carrasco DO Work Phone: Hematology/Oncology Comment on above: Orders; Appointment Start: 09-24-2024 End: 09-24-2024 ambulatory MICKI BUTLER Facility:[id number] Start: 09-24-2024 End: 09-24-2024 ambulatory Noe Jackson BACK WEDGER Work Phone: [facility] Comment on above: Lymphedema of left a rm (Primary Dx) Start: 09-23-2024 End: 09-23-2024 Subsequent hospital visit by physician [facility] Comment on above: Acute renal insuffic iency [N28.9] Start: 09-23-2024 End: 10-15-2024 ambulatory NEL DAY Facility:[facility] Comment on above: IV drip Start: 09-23-2024 End: 09-24-2024 Follow-up encounter Nel Day APRN.CNP Work Phone: Internal Medicine [place] Comment on above: Results Start: 09-22-2024 End: 09-22-2024 ambulatory NEL DAY Facility:[facility] Start: 09-22-2024 End: 09-22-2024 Office outpatient visit 15 minutes Nel Day APRN.PLATEN GRINDER Work Phone: Internal Medicine [place] Comment on above: Urinary frequency (P rimary Dx); Renal insufficiency; Urinary tract infection with hematuria, site unspecified; Glucosuria; Type 2 diabetes mellitus without complication, with long-term current use of insulin (HCC) Start: 09-22-2024 End: 09-22-2024 Telephone encounter Jacinta Rivas MD Work Phone: Internal Medicine [place] Comment on above: Check urine for UTI Start: 09-22-2024 End: 09-22-2024 ambulatory Noe Harig BACK WEDGER Work Phone: [facility] [employer] [facility] Comment on above: Lymphedema of left a rm (Primary Dx) Start: 09-11-2024 End: 09-11-2024 ambulatory Noe Harig BACK WEDGER Work Phone: [facility] [place] Comment on above: Lymphedema of left a rm (Primary Dx) Lymphedema (Primary Dx); History of breast cancer; S/P breast reconstruction Start: 09-10-2024 End: 09-10-2024 Follow-up encounter Cathy Burr APRN.FLOORING MACHINE FEEDER Work Phone: Internal Medicine [place] Comment on above: Results; urine cultu re Start: 09-08-2024 End: 09-08-2024 ambulatory [facility] Facility:[facility] Start: 09-08-2024 End: 09-08-2024 Patient encounter procedure Tatianna Crook [facility] Work Phone: [facility] Comment on above: Type 2 diabetes yolanda itus without complication, unspecified whether fpc insulin use (HCC) (Primary Dx) Start: 09-08-2024 End: 09-08-2024 Telemedicine consultation with patient Tatianna Crook [facility] Work Phone: [facility] Start: 09-07-2024 End: 09-07-2024 ambulatory JACINTA D [facility] Facility:[facility] Start: 09-07-2024 End: 09-07-2024 Office outpatient visit 15 minutes Cathy Burr APRN.FLOORING MACHINE FEEDER Work Phone: Internal Medicine [place] Comment on above: UTI symptoms (Primar y Dx); Complicated UTI (urinary tract infection) Start: 09-03-2024 End: 09-03-2024 Chart abstracting Micki Marcelino MD Work Phone: Plastic Surgery Comment on above: PHOTOS TAKEN Start: 09-03-2024 End: 09-03-2024 Patient encounter procedure Micki Marcelino MD Work Phone: Plastic Surgery Comment on above: Lymphedema (Primary Dx) Start: 09-03-2024 End: 09-03-2024 ambulatory MICKI MARCELINO Facility:[facility] Start: 09-01-2024 End: 09-02-2024 Follow-up encounter Serena Carrasco DO Work Phone: Hematology/Oncology Start: 09-01-2024 End: 09-01-2024 [facility] Start: 08-27-2024 End: 08-27-2024 ambulatory Milagros Brown [facility] [place] Comment on above: Lymphedema of left a rm (Primary Dx); History of breast cancer; S/P breast reconstruction; Seroma of breast Start: 08-11-2024 End: 08-11-2024 [facility] Start: 08-11-2024 End: 08-11-2024 Patient encounter procedure Tatianna Taborlouis [facility] Work Phone: [facility] Comment on above: Type 2 diabetes yolanda itus without complication, unspecified 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 insulin use (HCC) (Primary Dx) Start: 08-11-2024 End: 08-11-2024 Telemedicine consultation with patient Tatianna Crook [facility] Work Phone: [facility] Start: 08-10-2024 End: 08-10-2024 ambulatory Daisy Titus HULLER OPERATOR.PLATEN GRINDER Work Phone: Endocrinology Comment on above: Droplet pen needles Start: 08-04-2024 End: 08-04-2024 [facility] Start: 08-03-2024 End: 08-03-[address] Andrea Peace MD -Laboratory Work Phone: Start: 08-03-2024 End: 08-03-2024 Patient encounter procedure Micki Butler HULLER OPERATOR.PLATEN GRINDER Work Phone: Plastic Surgery Comment on above: Post-operative state (Primary Dx); History of breast cancer; S/P breast reconstruction; Seroma of breast Start: 08-03-2024 End: 08-03-2024 [facility] Start: 08-03-2024 End: 08-03-2024 ambulatory [facility] Facility[facility] Start: 07-16-2024 End: 09-15-2024 Follow-up encounter Cathy Burr 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 Work Phone: Internal Medicine [place] Start: 07-15-2024 End: 07-15-2024 Patient encounter procedure Micki Butler HULLER OPERATOR.PLATEN GRINDER Work Phone: [facility] Comment on above: Seroma of breast (Pr imary Dx); Post-operative state Start: 07-15-2024 End: 07-16-2024 [facility] Facility:[facility] Start: 07-14-2024 End: 07-14-2024 [facility] Facility:[facility] Start: 07-14-2024 End: 07-14-2024 Patient encounter procedure Tatianna Crook [facility] Work Phone: [facility] Comment on above: Type 2 diabetes yolanda itus without complication, unspecified whether fpc insulin use (HCC) (Primary Dx) Start: 07-14-2024 End: 07-14-2024 Telemedicine consultation with patient Tatianna Crook [facility] Work Phone: [facility] Start: 07-10-2024 End: 07-13-2024 Telephone encounter Serena Carrasco DO Work Phone: Hematology/Oncology Comment on above: Results Start: 07-09-2024 End: 07-09-2024 [facility] Facility:[facility] Start: 07-09-2024 End: 07-09-2024 Office outpatient visit 25 minutes Serena Carrasco DO Work Phone: Hematology/Oncology Comment on above: Malignant neoplasm o f left breast in female, estrogen receptor positive, unspecified site of breast (HCC) (Primary Dx); 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 1] Start: 07-07-2024 End: 07-07-2024 Telephone encounter Serena Carrasco DO Work Phone: Hematology/Oncology Comment on above: Orders Start: 07-06-2024 End: 07-06-2024 Patient encounter procedure Micki Butler APRN.PLATEN GRINDER Work Phone: Plastic Surgery Comment on above: Seroma of breast (Pr imary Dx); Post-operative state Start: 07-06-2024 End: 07-06-2024 [facility] Start: 07-02-2024 End: 07-06-2024 ambulatory Michell David Work Phone: Hematology/Oncology Comment on above: Results on PET Scan Start: 06-30-2024 ambulatory SERENA CARRASCO Facility:[facility] [place] Start: 06-30-2024 End: 06-30-2024 Subsequent hospital visit by physician Injection [facility] Comment on above: Malignant neoplasm o f left breast in female, estrogen receptor positive, unspecified site of breast (HCC) [C50.912, Z17.0] Start: 06-26-2024 End: 06-26-2024 Refill Cathy Burr APRN.FLOORING MACHINE FEEDER Work Phone: Internal Medicine [place] Comment on above: Med Change Request Start: 06-25-2024 End: 06-25-2024 [facility] Start: 06-25-2024 End: 06-25-2024 Patient encounter procedure Micki Marcelino MD Work Phone: Plastic Surgery Comment on above: Post-operative state (Primary Dx); History of breast cancer; S/P breast reconstruction; Seroma of breast Start: 06-23-2024 End: 08-24-2024 Follow-up encounter Cathy Burr APRN.FLOORING MACHINE FEEDER Work Phone: Internal Medicine [place] Start: 06-16-2024 End: 06-16-2024 [facility] Start: 06-16-2024 End: 06-16-2024 Patient encounter procedure Tatianna Crook [facility] Work Phone: [facility] Comment on above: Type 2 diabetes yolanda itus without complication, unspecified whether fpc insulin use (HCC) (Primary Dx); Medication management Start: 06-16-2024 End: 06-16-2024 Telemedicine consultation with patient Tatianna Crook [facility] Work Phone: [facility] Start: 06-11-2024 End: 06-11-2024 Refill Serena Carrasco DO Work Phone: Hematology/Oncology Comment on above: Refill Request Post-operative state (Primary Dx); S/P breast reconstruction Start: 06-09-2024 End: 06-22-2024 Follow-up encounter Cathy Burr APRN.CNS Work Phone: Internal Medicine [place] Start: 06-05-2024 End: 06-05-2024 ambulatory [facility] Facility:[facility] Start: 06-05-2024 End: 06-05-2024 Office outpatient visit 25 minutes Cathy Burr APRN.CNS Work Phone: Internal Medicine [place] Comment on above: Primary hypertension (Primary Dx) Start: 06-04-2024 End: 06-05-2024 ambulatory Tatianna Crook [facility] Work Phone: [facility] Start: 06-04-2024 End: 06-05-2024 Patient encounter procedure Mino Beard APRN.PLATEN GRINDER Work Phone: Plastic Surgery Comment on above: Post-operative state (Primary Dx); S/P breast reconstruction; Seroma of breast HBP meds Start: 06-03-2024 End: 06-03-2024 ambulatory [facility] Facility:[facility] Start: 05-29-2024 End: 05-29-2024 ambulatory [facility] Facility:[facility] Start: 05-29-2024 End: 05-29-2024 Patient encounter procedure Mino Beard APRN.PLATEN GRINDER Work Phone: Plastic Surgery Comment on above: Post-operative state (Primary Dx); S/P breast reconstruction; Encounter for change or removal of drains Start: 05-27-2024 End: 05-27-2024 ambulatory JACINTA RIVAS Facility:[facility] Start: 05-27-2024 End: 05-27-2024 Patient encounter procedure Eliz Bingham MD Work Phone: Breast Center Comment on above: Malignant neoplasm o f lower-outer quadrant of left breast of female, estrogen receptor positive (HCC) (Primary Dx); 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); Axillary pain, left Start: 05-26-2024 End: 05-26-2024 Telephone encounter Cathy Burr APRN.FLOORING MACHINE FEEDER Work Phone: Internal Medicine [place] Comment on above: Results Start: 05-26-2024 End: 07-15-2024 ambulatory Cathy Burr APRN.CNS Work Phone: Internal Medicine [place] Start: 05-26-2024 End: 05-26-2024 Office outpatient visit 25 minutes Cathy Burr APRN.FLOORING MACHINE FEEDER Work Phone: Internal Medicine [place] Comment on above: Primary hypertension (Primary Dx); Palpitations Start: 05-25-2024 End: 05-25-2024 ambulatory JACINTA RIVAS Facility:[facility] Start: 05-25-2024 End: 05-25-2024 Patient encounter procedure Mino Beard APRN.PLATEN GRINDER Work Phone: Plastic Surgery Comment on above: Post-operative state (Primary Dx); S/P breast reconstruction Start: 05-21-2024 End: 05-21-2024 ambulatory Jacinta Rivas MD Work Phone: Internal Medicine [place] Comment on above: Hypertension HBP medications Start: 05-21-2024 End: 05-21-2024 Patient encounter procedure Tatianna Crook [facility] Work Phone: [facility] Comment on above: HBP meds Start: 05-21-2024 End: 05-21-2024 Emergency department patient visit Rai Sterling Facility:[facility] Start: 05-20-2024 End: 05-20-2024 Refill Kassypamella Raman HULLER OPERATOR.PLATEN GRINDER Work Phone: Hematology/Oncology Comment on above: Refill Request Start: 05-20-2024 End: 05-21-2024 Refill Kassy Mossenter HULLER OPERATOR.PLATEN GRINDER Work Phone: Hematology/Oncology Comment on above: Refill Request Start: 05-19-2024 End: 05-19-2024 Telephone encounter Cayla Charles PA-C Work Phone: Breast Center Comment on above: Post Op Start: 05-18-2024 ambulatory JACINTA D TALAMPAS Facilit y:[facility] Start: 05-18-2024 End: 05-18-2024 Subsequent hospital visit by physician Micki Marcelino MD Work Phone: Ambulatory Surgery Comment on above: Malignant neoplasm o f lower-outer quadrant of left breast of female, estrogen receptor positive (HCC) [C50.512, Z17.0] Start: 05-13-2024 End: 05-13-2024 ambulatory Bobbi Orourke [facility] Comment on above: Malignant neoplasm o f lower-outer quadrant of left breast of female, estrogen receptor positive (HCC) (Primary Dx); Lymphedema of left arm Start: 05-12-2024 End: 05-12-2024 Office outpatient visit 25 minutes Cathy Burr APRN.CNS Work Phone: Internal Medicine [place] Comment on above: Primary hypertension (Primary Dx); Acute cough; Sore throat Start: 05-12-2024 End: 05-12-2024 ambulatory JACINTA D TALAMPAS Facility:[facility] Start: 05-11-2024 End: 05-11-2024 ambulatory JACINTA D TALAMPAS Facility:[facility] Start: 05-11-2024 End: 05-11-2024 Nursing evaluation of patient and report Bianca Addison RN Breast Center Comment on above: Malignant neoplasm o f lower-outer quadrant of left breast of female, estrogen receptor positive (HCC) (Primary Dx); Encounter for education Start: 05-07-2024 End: 05-07-2024 ambulatory JACINTA D TALAMPAS Facility:[facility] Start: 05-07-2024 End: 05-07-2024 Office outpatient visit 25 minutes Cathy Burr JOSE LUIS Work Phone: Internal Medicine [place] Comment on above: Acute cough (Primary Dx); Primary hypertension; Sore throat Start: 05-06-2024 End: 05-06-2024 ambulatory Bobbi Orourke [facility] Comment on above: Malignant neoplasm o f lower-outer quadrant of left breast of female, estrogen receptor positive (HCC) (Primary Dx); Lymphedema of left arm Start: 05-05-2024 End: 05-05-2024 ambulatory JACINTA Priscila [facility] Facility:[facility] Start: 05-05-2024 End: 05-05-2024 Patient encounter procedure Tatianna Crook [facility] Work Phone: [facility] Comment on above: Type 2 diabetes yolanda itus without complication, unspecified 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 insulin use (HCC) (Primary Dx) Start: 05-05-2024 End: 05-05-2024 Telemedicine consultation with patient Tatianna Crook [facility] Work Phone: [facility] Start: 05-04-2024 End: 05-04-2024 Telephone encounter Serena Carrasco DO Work Phone: Pre Anesthesia Comment on above: Preparations For Mei edson (Follow-up) Start: 05-04-2024 End: 05-04-2024 Admission to establishment [facility] Pre Anesthesia Start: 05-04-2024 End: 05-04-2024 ambulatory JACINTA Priscila [facility] Facility:[facility] Start: 05-04-2024 End: 05-04-2024 Anesthesia consultation Pac [facility] Pre Anesthesia Comment on above: Preop examination (P rimary Dx); Viral URI with cough; Primary hypertension; Chemotherapy-induced cardiomyopathy (HCC); Gastroesophageal reflux disease, unspecified whether esophagitis present; Primary biliary cirrhosis (HCC); Malignant neoplasm of lower-outer quadrant of left breast of female, estrogen receptor positive (HCC); Type 2 diabetes mellitus without complication, with long-term current use of insulin (HCC); Anemia, unspecified type Start: 05-04-2024 Encounter for other preprocedural examination JACINTA RIVAS [facility] Start: 05-04-2024 End: 05-04-2024 Preprocedural examination done [facility] Work Phone: Start: 04-28-2024 End: 04-28-2024 Subsequent hospital visit by physician [facility] [place] Work Phone: Radiology Comment on above: Acute cough [R05.1] Start: 04-28-2024 End: 04-28-2024 ambulatory JACINTA RIVAS Facility:[facility] Start: 04-28-2024 End: 04-28-2024 Patient encounter procedure Carla Forbes HULLER OPERATOR.PLATEN GRINDER Work Phone: [place] [facility] Comment on above: Acute cough (Primary Dx); URI, acute Start: 04-28-2024 End: 04-28-2024 Telephone encounter Jacinta Rivas MD Work Phone: Internal Medicine [place] Comment on above: 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 Start: 04-24-2024 End: 04-24-2024 ambulatory Bobbi Vanegas PT [place] [facility] Comment on above: Lymphedema of left a rm (Primary Dx); Malignant neoplasm of lower-outer quadrant of left breast of female, estrogen receptor positive (HCC) Start: 04-22-2024 End: 04-23-2024 ambulatory Michell David Work Phone: Hematology/Oncology Comment on above: PET Scans Start: 04-21-2024 End: 04-22-2024 Refill Serena Carrasco DO Work Phone: Hematology/Oncology Comment on above: Refill Request Start: 04-15-2024 End: 04-15-2024 ambulatory DAISY TITUS Facility:[facility] Start: 04-15-2024 End: 04-15-2024 Patient encounter procedure Daisy Titus HULLER OPERATOR.PLATEN GRINDER Work Phone: Endocrinology Comment on above: Diabetes mellitus tr eated with insulin (HCC) (Primary Dx) Start: 04-13-2024 End: 04-14-2024 Telephone encounter Cayla Charles PA-C Work Phone: Breast Center Comment on above: Schedule Surgery Results Start: 04-13-2024 End: 04-13-2024 ambulatory Treatment Rm 15 Adrian [facility] Work Phone: Hematology/Oncology Comment on above: Malignant neoplasm o f left breast in female, estrogen receptor positive, unspecified site of breast (HCC) (Primary Dx) Start: 04-13-2024 End: 04-13-2024 Subsequent hospital visit by physician [facility] Comment on above: Malignant neoplasm o f left breast in female, estrogen receptor positive, unspecified site of breast (HCC) [C50.912, Z17.0] Start: 04-10-2024 End: 04-14-2024 Telephone encounter Serena Carrasco DO Work Phone: Hematology/Oncology Comment on above: Results Start: 04-10-2024 End: 04-10-2024 Patient encounter procedure Serena Carrasco DO Work Phone: Hematology/Oncology Start: 04-10-2024 End: 04-10-2024 ambulatory Serena Carrasco DO Work Phone: Hematology/Oncology Comment on above: Malignant neoplasm o f left breast in female, estrogen receptor positive, unspecified site of breast (HCC) (Primary Dx); 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); 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 lymph node (HCC); Swelling of limb; Chemotherapy-induced cardiomyopathy (HCC) Start: 04-06-2024 ambulatory SERENA CARRASCO Facility:[facility] Start: 04-06-2024 End: 04-06-2024 Subsequent hospital visit by physician [facility] Comment on above: Malignant neoplasm o f overlapping sites of left breast in female, estrogen receptor positive (HCC) [C50.812, Z17.0] Start: 03-25-2024 End: 03-25-2024 Chart abstracting Micki Marcelino MD Work Phone: Plastic Surgery Comment on above: PHOTOS TAKEN Start: 03-25-2024 End: 03-25-2024 Refill Serena Carrasco DO Work Phone: Hematology/Oncology Comment on above: Refill Request Start: 03-25-2024 End: 03-25-2024 Subsequent hospital visit by physician [facility] Work Phone: Mammography Start: 03-25-2024 End: 03-25-2024 ambulatory JACINTA LARARICARDO [facility] [facility] Start: 03-25-2024 End: 03-25-2024 Patient encounter procedure Micki Marcelino MD Work Phone: Plastic Surgery Comment on above: Malignant neoplasm o f lower-outer quadrant of left breast of female, estrogen receptor positive (HCC) (Primary Dx); History of breast cancer; History of breast reconstruction; Encounter to discuss breast reconstruction Malignant neoplasm o f lower-outer quadrant of left breast of female, estrogen receptor positive (HCC) (Primary Dx) Start: 03-24-2024 End: 03-24-2024 [facility] Jacinta Priscila Nugentchan [facility] Facility:[facility] Start: 03-18-2024 End: 03-18-2024 [facility] Facility:[facility] Start: 03-18-2024 End: 03-18-2024 Office outpatient visit 25 minutes Jacinta Rivas MD Work Phone: Internal Medicine [place] Comment on above: Type 2 diabetes yolanda itus without complication, without long- term current use of insulin (HCC) (Primary Dx); Chemotherapy-induced neuropathy (HCC); Primary biliary cirrhosis (HCC); Lymphedema of left arm; Sore throat; Excessive tear production of both lacrimal glands; Primary hypertension; Senile cataract of left eye, unspecified age-related cataract type Start: 03-10-2024 End: 03-11-2024 Get Medical Advice Michell David Work Phone: Hematology/Oncology Comment on above: Refill Start: 03-09-2024 End: 03-09-2024 Refill Serena Carrasco DO Work Phone: Hematology/Oncology Comment on above: Refill Request Start: 02-27-2024 End: 02-27-2024 Orders Only Eliz Bingham MD Work Phone: [facility] Comment on above: Malignant neoplasm o f lower-outer quadrant of left breast of female, estrogen receptor positive (HCC) (Primary Dx) 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; Appo intment Start: 02-26-2024 End: 02-26-2024 Telephone encounter Cayla Charles PA-C Work Phone: Breast Center Comment on above: Appointment Start: 02-25-2024 End: 02-25-2024 ambulatory JACINTA North RAFFIJUAN DIEGORICARDO Facility:[facility] Start: 02-25-2024 End: 02-25-2024 Patient encounter procedure Tatianna Crook [facility] Work Phone: [facility] Comment on above: Type 2 diabetes yolanda itus without complication, unspecified whether fpc insulin use (HCC) (Primary Dx) Start: 02-25-2024 End: 02-25-2024 Telemedicine consultation with patient Tatianna Crook [facility] Work Phone: [facility] Start: 02-24-2024 End: 02-26-2024 ambulatory Michell David Work Phone: Hematology/Oncology Comment on above: Recents scans Start: 02-18-2024 ambulatory JACINTAKey RIVAS Facilit y:[facility] Start: 02-18-2024 End: 02-18-2024 Subsequent hospital visit by physician [facility] (I-Stat/1.5t) [facility] Comment on above: Malignant neoplasm o f lower-outer quadrant of left breast of female, estrogen receptor positive (HCC) [C50.512, Z17.0] Start: 02-05-2024 End: 02-05-2024 ambulatory DAISY TITUS Facility:[facility] Start: 02-05-2024 End: 02-05-2024 Patient encounter procedure Daisy Titus HULLER OPERATOR.PLATEN GRINDER Work Phone: Endocrinology Comment on above: Poorly control type 2 diabetes mellitus (HCC) (Primary Dx) Start: 02-03-2024 End: 02-03-2024 Refill Kassy Raman HULLER OPERATOR.PLATEN GRINDER Work Phone: Hematology/Oncology Comment on above: Med Change Request Start: 01-22-2024 End: 01-24-2024 Refill Serena Carrasco DO Work Phone: Hematology/Oncology Comment on above: Refill Request Start: 01-13-2024 End: 01-13-2024 Office outpatient visit 15 minutes Subhash Avila PA-C Work Phone: Orthopaedics Comment on above: Low back pain radiat ing to right leg (Primary Dx); Status post total replacement of right hip; Weakness of right hip; Trochanteric bursitis of right hip Start: 01-13-2024 End: 01-13-2024 ambulatory JACINTA D GOLISANO [facility] Facility:[facility] Start: 01-13-2024 End: 01-13-2024 Subsequent hospital visit by physician Radio Velasquez [facility] Work Phone: Radiology Comment on above: Pain in right hip [M 25.551] Start: 01-07-2024 End: 01-07-2024 ambulatory [facility] Facility:[facility] Start: 01-07-2024 End: 01-07-2024 Patient encounter procedure Tatianna Crook [facility] Work Phone: [facility] Comment on above: Type 2 diabetes yolanda itus without complication, unspecified 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 insulin use (HCC) (Primary Dx) Start: 01-07-2024 End: 01-07-2024 Telemedicine consultation with patient Tatianna Crook [facility] Work Phone: [facility] Start: 01-06-2024 End: 01-06-2024 Telephone encounter Bianca Addison RN Breast Center Comment on above: 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; Public Address Systems Mechanic - Other Start: 01-06-2024 End: 01-06-2024 Patient encounter procedure Serena Carrasco DO Work Phone: Hematology/Oncology Start: 01-06-2024 End: 01-06-2024 ambulatory Serena Carrasco DO Work Phone: Hematology/Oncology Comment on above: Malignant neoplasm o f overlapping sites of left breast in female, estrogen receptor positive (HCC) (Primary Dx); 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); 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 lymph node (HCC); Malignant neoplasm of lower-outer quadrant of left breast of female, estrogen receptor positive (HCC); Type 2 diabetes mellitus with other specified complication, without long-term current use of insulin (HCC); Chemotherapy-induced cardiomyopathy (HCC); LAXMI (acute kidney injury) (HCC) Start: 01-02-2024 End: 01-03-2024 Telephone encounter Subhash Avila PA-C Work Phone: Orthopaedics Comment on above: Appointment Start: 12-30-2023 ambulatory SERENA CARARSCO Facility[facility] Start: 12-30-2023 End: 12-30-2023 Subsequent hospital visit by physician [facility] [place] [facility] Comment on above: 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) [C50.912, C79.2] Start: 12-27-2023 End: 12-30-2023 ambulatory Tatianna Crook [facility] Work Phone: [facility] Start: 12-27-2023 End: 12-30-2023 Patient encounter procedure Tatiannaezio Crook [facility] Work Phone: [facility] Comment on above: Script Start: 12-11-2023 End: 12-12-2023 Refill Serena Carrasco DO Work Phone: Hematology/Oncology Comment on above: Refill Request Start: 12-02-2023 End: 12-02-2023 ambulatory JACINTA RIVAS Facility:[facility] Start: 12-02-2023 End: 12-02-2023 Patient encounter procedure Tatianna Crook [facility] Work Phone: [facility] Comment on above: Type 2 diabetes yolanda itus without complication, unspecified 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 insulin use (HCC) (Primary Dx); Medication management Start: 12-02-2023 End: 12-02-2023 Telemedicine consultation with patient Tatiannajane Crook [facility] Work Phone: [facility] Start: 11-22-2023 ambulatory Serena North O Work Phone: Hematology/Oncology Comment on above: Recent test Start: 11-19-2023 ambulatory SERENA CARRASCO Facility:[facility] Start: 11-19-2023 End: 11-19-2023 Subsequent hospital visit by physician [facility] Comment on above: Right upper quadrant pain [R10.11] Start: 11-13-2023 Telephone encounter Jacinta ambriz MD Work Phone: Internal Medicine [place] Comment on above: Order for Glucometer Start: 11-12-2023 Refill Serena Slaughter Work Phone: Hematology/Oncology Comment on above: Refill Request Results Start: 11-11-2023 End: 11-11-2023 ambulatory Serena Carrasco DO Work Phone: Hematology/Oncology Comment on above: 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) (Primary Dx); 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 lymph node (HCC); Acute cystitis with hematuria; Primary hypertension; Chemotherapy-induced cardiomyopathy (HCC) Start: 11-11-2023 End: 11-11-2023 Patient encounter procedure Serena Carrasco DO Work Phone: Hematology/Oncology Start: 11-05-2023 ambulatory Serena Slaughter Work Phone: Hematology/Oncology Comment on above: Renew Lorazepam Start: 11-04-2023 Telephone encounter Lisbet govea APRN.CNP Work Phone: Internal Medicine [place] Comment on above: patient did follow u p urine sample Start: 10-30-2023 End: 10-30-2023 Patient encounter procedure Tatianna Crook [facility] Work Phone: [facility] Comment on above: Type 2 diabetes yolanda itus without complication, unspecified whether fpc insulin use (HCC) (Primary Dx) Start: 10-30-2023 End: 10-30-2023 Telemedicine consultation with patient Tatianna Crook [facility] Work Phone: [facility] Start: 10-27-2023 ambulatory Serena Slaughter Work Phone: Hematology/Oncology Comment on above: FYI Start: 10-23-2023 Telephone encounter Jacinta ambriz MD Work Phone: Internal Medicine [place] Comment on above: 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 Start: 10-23-2023 End: 10-23-2023 Patient encounter procedure Lisbet Pizano FELICIA.PLATEN GRINDER Work Phone: Internal Medicine [place] Comment on above: Acute cystitis with hematuria (Primary Dx) Start: 10-18-2023 End: 10-18-2023 Patient encounter procedure Severino Sauer HULLER OPERATOR.PLATEN GRINDER Work Phone: [facility] Comment on above: Neck strain, initial encounter (Primary Dx) Start: 10-08-2023 End: 10-08-2023 Patient encounter procedure Tatianna Panshobhacasio [facility] Work Phone: [facility] Comment on above: Type 2 diabetes yolanda itus without complication, unspecified whether fpc insulin use (HCC) (Primary Dx) Start: 10-08-2023 End: 10-08-2023 Telemedicine consultation with patient Tatianna Mckeoncasio [facility] Work Phone: [facility] Start: 09-25-2023 Refill Serena Sandhui D O Work Phone: Hematology/Oncology Comment on above: Refill Request Start: 09-23-2023 Refill Serena Sandhui D O Work Phone: Hematology/Oncology Comment on above: Refill Request Start: 09-10-2023 Refill Michell David Work Phone: Hematology/Oncology Comment on above: Refill Request Lip wound Start: 09-05-2023 End: 09-05-2023 Patient encounter procedure Tatianna Panshobhacasio [facility] Work Phone: [facility] Comment on above: Type 2 diabetes yolanda itus without complication, unspecified whether fpc insulin use (HCC) (Primary Dx) Start: 08-30-2023 ambulatory Tatianna Basurto allynasio [facility] Work Phone: [facility] Start: 08-30-2023 Patient encounter procedure Tatianna Paneccasio [facility] Work Phone: [facility] Comment on above: International travel Start: 08-27-2023 Telephone encounter Serena burgos DO Work Phone: Hematology/Oncology Comment on above: Results Start: 08-25-2023 Telephone encounter Serena burgos DO Work Phone: Hematology/Oncology Comment on above: Results Start: 08-19-2023 End: 08-19-2023 Subsequent hospital visit by physician Injection [facility] Comment on above: Malignant neoplasm o f lower-outer quadrant of left breast of female, estrogen receptor positive (HCC) [C50.512, Z17.0] Start: 08-13-2023 E-mail encounter narda guerra caregiver Tatianna Crook [facility] Work Phone: [facility] Start: 08-13-2023 End: 08-13-2023 Patient encounter procedure Tatianna Crook [facility] Work Phone: [facility] Comment on above: Type 2 diabetes yolanda itus without complication, unspecified whether fpc insulin use (HCC) (Primary Dx) Ozempic Start: 08-13-2023 End: 08-13-2023 Telemedicine consultation with patient Tatianna Crook [facility] Work Phone: [facility] Start: 08-12-2023 Telephone encounter Serena burgos DO Work Phone: Hematology/Oncology Comment on above: Results Start: 08-12-2023 End: 08-12-2023 Subsequent hospital visit by physician Injection [facility] Start: 08-06-2023 Refill Michell David Work Phone: Hematology/Oncology Comment on above: Refill Request Start: 08-05-2023 End: 08-05-2023 ambulatory Serena Carrasco DO Work Phone: Hematology/Oncology Comment on above: Chemotherapy-induced cardiomyopathy (HCC) (Primary Dx); Malignant neoplasm of lower-outer quadrant of left breast of female, estrogen receptor positive (HCC); Encounter for screening mammogram for high-risk patient; Encounter for monitoring cardiotoxic drug therapy; 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 lymph node (HCC); 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); LAXMI (acute kidney injury) (HCC); Primary hypertension; Hyperglycemia; Microcytosis Ozempic. Start: 08-05-2023 End: 08-05-2023 Patient encounter procedure Serena Carrasco Work Phone: Hematology/Oncology Comment on above: Ozempic Start: 07-24-2023 Refill Michell David Work Phone: Hematology/Oncology Comment on above: Refill Request Start: 07-18-2023 ambulatory Jacinta huffman MD Work Phone: Internal Medicine [place] Comment on above: Diabetic tests strip s Start: 07-18-2023 End: 07-18-2023 Patient encounter procedure Tatianna Mckeonnhi [facility] Work Phone: [facility] Comment on above: Type 2 diabetes yolanda itus without complication, unspecified whether fpc insulin use (HCC) (Primary Dx) Start: 07-16-2023 End: 07-16-2023 Office outpatient visit 25 minutes Jacinta Rivas MD Work Phone: Internal Medicine [place] Comment on above: Newly diagnosed Unco ntrolled type 2 diabetes mellitus with hyperglycemia (HCC) (Primary Dx); Urinary tract infection without hematuria, site unspecified; Metastasis from breast cancer (HCC) Start: 07-15-2023 End: 07-15-2023 ambulatory Bobbi Vanegas PT [facility] Comment on above: Lymphedema of left a rm (Primary Dx); Malignant neoplasm of lower-outer quadrant of left breast of female, estrogen receptor positive (HCC); 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 lymph node (HCC); 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) Start: 07-10-2023 ambulatory Jacinta huffman MD Work Phone: Internal Medicine [place] Comment on above: Metforman Start: 07-08-2023 End: 07-08-2023 Emergency department patient visit [facility] Work Phone: Start: 07-08-2023 End: 07-08-2023 Patient encounter procedure Carla Forbes APRN.PLATEN GRINDER Work Phone: [facility] Comment on above: Urinary frequency (P rimary Dx); Glucosuria; Left lower quadrant abdominal tenderness with rebound tenderness; Hyperglycemia Start: 07-08-2023 Telephone encounter Serena burgos DO Work Phone: Hematology/Oncology Comment on above: Results 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 Start: 07-05-2023 End: 07-05-2023 ambulatory Michell David Work Phone: Hematology/Oncology Comment on above: Malignant neoplasm o f lower-outer quadrant of left breast of female, estrogen receptor positive (HCC) (Primary Dx); 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); Malignant neoplasm of left breast in female, estrogen receptor positive, unspecified site of breast (HCC); 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 lymph node (HCC) Start: 07-05-2023 End: 07-05-2023 Patient encounter procedure Michell Frankie Work Phone: [facility] Start: 07-03-2023 Telephone encounter Serena burgos DO Work Phone: Hematology/Oncology Comment on above: Future Appointment Start: 06-03-2023 Telephone encounter Serena burgos DO Work Phone: Hematology/Oncology Comment on above: Follow Up Start: 05-31-2023 Orders Only Serena Slaughter Work Phone: Hematology/Oncology Comment on above: Malignant neoplasm o f left breast in female, estrogen receptor positive, unspecified site of breast (HCC) (Primary Dx); 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); 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 lymph node (HCC) Start: 05-24-2023 Refill Michell Frankie Work Phone: Hematology/Oncology Comment on above: Refill Request Start: 05-23-2023 ambulatory Kassy snell APRN.PLATEN GRINDER Work Phone: Hematology/Oncology Comment on above: mouth wash Start: 05-17-2023 ambulatory Kassy snell APRN.PLATEN GRINDER Work Phone: Hematology/Oncology Comment on above: mouth rinse Start: 05-09-2023 Chart abstracting Chantale Bundy RN Hematology/Oncology Comment on above: Research (CTD CTD) Start: 05-02-2023 Telephone encounter Lisa marquez RN Work Phone: Hematology/Oncology Comment on above: Care Coordination (F ollow Up Note ) Start: 03-12-2023 Telephone encounter Bianca Addison RN Breast Center Comment on above: 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; Appo intment Start: 03-07-2023 Telephone encounter Serena burgos DO Work Phone: Hematology/Oncology Comment on above: Results Start: 03-05-2023 End: 03-05-2023 ambulatory Injection [facility] Work Phone: Hematology/Oncology Comment on above: 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) (Primary Dx); Malignant neoplasm of lower-outer quadrant of left breast of female, estrogen receptor positive (HCC) ; 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) Start: 02-22-2023 Orders Only Myla batista Work Phone: Podiatry Comment on above: Arthritis of midfoot (Primary Dx) mobic Start: 02-18-2023 End: 02-18-2023 ambulatory Myla Springer Work Phone: Podiatry Comment on above: Arthritis of midfoot (Primary Dx) Start: 02-18-2023 End: 02-18-2023 Telemedicine consultation with patient Myla Springer Work Phone: [facility] Start: 02-12-2023 ambulatory Myla batista Work Phone: Podiatry Comment on above: Meloxicam Start: 02-12-2023 Telephone encounter Jacinta ambriz MD Work Phone: Family Medicine [place] Comment on above: Consult Start: 2023 Orders Only Serena Slaughter Work Phone: Hematology/Oncology Comment on above: Malignant neoplasm o f lower-outer quadrant of left breast of female, estrogen receptor positive (HCC) (Primary Dx); 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); 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) Start: 01-29-2023 ambulatory Kassy snell APRN.PLATEN GRINDER Work Phone: Hematology/Oncology Comment on above: PET Start: 01-28-2023 End: 01-28-2023 Subsequent hospital visit by physician Injection [facility] Comment on above: Malignant neoplasm o f left breast in female, estrogen receptor positive, unspecified site of breast (HCC) [C50.912, Z17.0] Start: 01-18-2023 Refill Jacinta huffman MD Work Phone: Internal Medicine [place] Comment on above: Refill Request Start: 01-09-2023 Telephone encounter Kassy baires APRN.PLATEN GRINDER Work Phone: Hematology/Oncology Comment on above: AVS 01/09 Start: 01-08-2023 Telephone encounter Mino DOHERTY Hematology/Oncology Comment on above: Social Work Services Start: 12-27-2022 Telephone encounter Serena burgos DO Work Phone: Hematology/Oncology Comment on above: Results Start: 12-26-2022 End: 12-26-2022 ambulatory Treatment Rm 12 [facility] Work Phone: Hematology/Oncology Comment on above: Malignant neoplasm o f left breast in female, estrogen receptor positive, unspecified site of breast (HCC) (Primary Dx); LAXMI (acute kidney injury) (HCC) Start: 12-19-2022 Orders Only Serena Slaughter Work Phone: Hematology/Oncology Comment on above: Malignant neoplasm o f lower-outer quadrant of left breast of female, estrogen receptor positive (HCC) (Primary Dx); 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); 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 lymph node (HCC) Start: 12-17-2022 End: 12-17-2022 Patient encounter procedure [facility]rena Carrasco DO [facility] Start: 12-17-2022 End: 12-17-2022 ambulatory Lab/[facility] Work Phone: Hematology/Oncology Comment on above: 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) Malignant neoplasm o f left breast in female, estrogen receptor positive, unspecified site of breast (HCC) (Primary Dx); 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); 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 lymph node (HCC); Chemotherapy-induced cardiomyopathy (HCC); LAXMI (acute kidney injury) (HCC) Start: 12-17-2022 Telephone encounter Serena burgos DO Work Phone: Hematology/Oncology Comment on above: Appointment Results Start: 12-13-2022 End: 12-13-2022 ambulatory Injection [facility] Work Phone: Hematology/Oncology Comment on above: 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) (Primary Dx); Malignant neoplasm of lower-outer quadrant of left breast of female, estrogen receptor positive (HCC); 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) Start: 12-03-2022 End: 12-03-2022 ambulatory Lab/[facility] Work Phone: Hematology/Oncology Comment on above: Malignant neoplasm o f lower-outer quadrant of left breast of female, estrogen receptor positive (HCC); 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) Start: 11-28-2022 Telephone encounter Dena Lechuga RN He matology/Oncology Comment on above: Public Address Systems Mechanic - O ther (Oral Anti-Cancer Agents Education/Follow-up ) Start: 11-15-2022 End: 11-15-2022 ambulatory Injection [facility] Work Phone: Hematology/Oncology Comment on above: 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) (Primary Dx); Malignant neoplasm of lower-outer quadrant of left breast of female, estrogen receptor positive (HCC); 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) Start: 11-14-2022 Orders Only Serena Slaughter Work Phone: Hematology/Oncology Comment on above: Malignant neoplasm o f lower-outer quadrant of left breast of female, estrogen receptor positive (HCC) (Primary Dx); 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); 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) Start: 11-07-2022 Telephone encounter Serena burgos DO Work Phone: Hematology/Oncology Comment on above: Patient Question Results Start: 11-07-2022 End: 11-07-2022 ambulatory Treatment Rm 11 [facility] Work Phone: Hematology/Oncology Comment on above: Dehydration (Primary Dx); Functional diarrhea Start: 11-06-2022 End: 11-06-2022 ambulatory Treatment Rm 6 [facility] Work Phone: Hematology/Oncology Comment on above: Dehydration (Primary Dx); Functional diarrhea Refill Request Start: 11-06-2022 Telephone encounter Serena burogs DO Work Phone: Hematology/Oncology Comment on above: Results Start: 11-05-2022 ambulatory [facility] Start: 11-05-2022 Patient encounter procedure [facility] Comment on above: [facility] Oral Oncology/he matology - Treatment Referral (Kisqali); Insurance Inquiry (See if PA is required) Malignant neoplasm o f lower-outer quadrant of left breast of female, estrogen receptor positive (HCC) (Primary Dx); 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); 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 lymph node (HCC) Start: 11-01-2022 Telephone encounter Serena burgos DO Work Phone: Hematology/Oncology Comment on above: Follow Up (Changing from Verzenio to Kisqali) Start: 10-25-2022 Telephone encounter Bianca Addison RN Breast Center Comment on above: 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 Start: 10-18-2022 End: 10-18-2022 ambulatory Injection [facility] Work Phone: Hematology/Oncology Comment on above: 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) (Primary Dx); Malignant neoplasm of lower-outer quadrant of left breast of female, estrogen receptor positive (HCC); 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) Start: 10-01-2022 Telephone encounter Lisa marquez RN Work Phone: Hematology/Oncology Comment on above: Care Coordination (F ollow up Note ) Start: 09-25-2022 End: 09-25-2022 ambulatory Treatment Rm 10 [facility] Work Phone: Hematology/Oncology Comment on above: 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); Functional diarrhea Start: 09-21-2022 Telephone encounter Serena burgos DO Work Phone: Hematology/Oncology Comment on above: Results; Future Appo intment Start: 09-21-2022 End: 09-21-2022 ambulatory Treatment Rm 4 [facility] Work Phone: Hematology/Oncology Comment on above: Functional diarrhea (Primary Dx) Start: 09-20-2022 Nursing evaluation o f patient and report Chantale Bundy RN Hematology/Oncology Comment on above: Examination of parti cipant in clinical trial (Primary Dx) 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) (Primary Dx) Start: 09-20-2022 End: 09-20-2022 Patient encounter procedure Serena Carrasco DO Work Phone: [facility] Start: 09-20-2022 Telephone encounter Serena burgos DO Work Phone: Hematology/Oncology Comment on above: Results (UA) Start: 09-20-2022 End: 09-20-2022 ambulatory Treatment Rm 12 [facility] Work Phone: Hematology/Oncology Comment on above: Functional diarrhea (Primary Dx) Start: 09-20-2022 End: 09-20-2022 ambulatory Injection [facility] Work Phone: Hematology/Oncology Comment on above: 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) (Primary Dx); Malignant neoplasm of lower-outer quadrant of left breast of female, estrogen receptor positive (HCC); 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) Start: 09-20-2022 End: 09-20-2022 ambulatory Serena Carrasco DO Work Phone: Hematology/Oncology Comment on above: Malignant neoplasm o f lower-outer quadrant of left breast of female, estrogen receptor positive (HCC) (Primary Dx); 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); 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 lymph node (HCC); Hypotension due to hypovolemia; Functional diarrhea; LAXMI (acute kidney injury) (HCC) Start: 09-09-2022 Telephone encounter Serena burgos DO Work Phone: Hematology/Oncology Comment on above: Results (Mild increa se in serum Cr and BUN) Start: 09-06-2022 End: 09-06-2022 ambulatory Injection [facility] Work Phone: Hematology/Oncology Comment on above: 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) (Primary Dx); Malignant neoplasm of lower-outer quadrant of left breast of female, estrogen receptor positive (HCC); 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) Start: 09-05-2022 Orders Only Serena Slaughter Work Phone: Hematology/Oncology Comment on above: Malignant neoplasm o f lower-outer quadrant of left breast of female, estrogen receptor positive (HCC) (Primary Dx); 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); 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 lymph node (HCC) Start: 08-18-2022 Telephone encounter Eliz lockwood MD Work Phone: [facility] Comment on above: Results Start: 08-17-2022 Telephone encounter Serena burgos DO Work Phone: Hematology/Oncology Comment on above: Refill Request Start: 08-16-2022 End: 08-16-2022 ambulatory Injection [facility] Work Phone: Hematology/Oncology Comment on above: 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) (Primary Dx); Malignant neoplasm of lower-outer quadrant of left breast of female, estrogen receptor positive (HCC); 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 Comment on above: Malignant neoplasm o f lower-outer quadrant of left breast of female, estrogen receptor positive (HCC) [C50.512, Z17.0] Start: 08-14-2022 End: 08-14-2022 ambulatory Kam Dangelo MD Work Phone: Pulmonology Comment on above: Results (Post bronch oscopy note) Start: 08-13-2022 Telephone encounter Cori Cox RN Pulmonary Medicine Comment on above: Appointment Start: 08-13-2022 End: 08-13-2022 ambulatory KAM DANGELO Facility:[facility] Start: 08-13-2022 End: 08-13-2022 Patient encounter procedure Kam Dangelo MD Work Phone: Pulmonology Comment on above: Adenopathy (Primary Dx); 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); Primary biliary cirrhosis (HCC); Malignant neoplasm of lower-outer quadrant of left breast of female, estrogen receptor positive (HCC) Start: 08-09-2022 End: 08-09-2022 Admission to [place] [id number] Work Phone: [facility] Start: 08-09-2022 End: 08-09-2022 ambulatory [place] [address] Work Phone: Pre Anesthesia Comment on above: Pre-op evaluation (P rimary Dx); Chemotherapy-induced neuropathy (HCC); Chemotherapy-induced cardiomyopathy (HCC); Primary biliary cirrhosis (HCC); Lumbar degenerative disc disease; Class 1 obesity due to excess calories with serious comorbidity and body mass index (BMI) of 32.0 to 32.9 in adult Start: 08-09-2022 End: 08-09-2022 Preprocedural examination done [place] [address] Work Phone: Pre Anesthesia Start: 08-06-2022 ambulatory Kam amaya MD Work Phone: Pulmonology Comment on above: Bronchoscopy Schedul ing Start: 08-02-2022 End: 08-02-2022 Subsequent hospital visit by physician Mri [facility] (1.5t) [facility] Comment on above: Malignant neoplasm o f overlapping sites of left breast in female, estrogen receptor positive (HCC) [C50.812, Z17.0] Start: 08-01-2022 End: 08-01-2022 ambulatory Serena Carrasco DO Work Phone: Hematology/Oncology Comment on above: Malignant neoplasm o f left breast in female, estrogen receptor positive, unspecified site of breast (HCC) (Primary Dx); 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) Start: 08-01-2022 End: 08-01-2022 Patient encounter procedure Serena Carrasco DO Work Phone: [facility] [employer] Comment on above: Malignant neoplasm o f lower-outer quadrant of left breast of female, estrogen receptor positive (HCC) (Primary Dx) Start: 07-19-2022 End: 07-19-2022 Patient encounter procedure Eliz Bingham MD Work Phone: [facility] Comment on above: Malignant neoplasm o f lower-outer quadrant of left breast of female, estrogen receptor positive (HCC) (Primary Dx) Start: 07-09-2022 End: 07-09-2022 ambulatory Treatment Rm 13 [facility] Work Phone: Hematology/Oncology Comment on above: Malignant neoplasm o f left breast in female, estrogen receptor positive, unspecified site of breast (HCC) (Primary Dx) Start: 07-04-2022 Nursing evaluation o f patient and report Chantale Bundy RN Hematology/Oncology Comment on above: Examination of parti cipant in clinical trial (Primary Dx) Start: 07-04-2022 End: 07-04-2022 Patient encounter procedure Serena Carrasco DO Work Phone: [facility] [employer] Start: 07-04-2022 Telephone encounter Bianca Addison RN Breast Center Comment on above: Appointment (DR Shanna watts) Start: 07-04-2022 End: 07-04-2022 ambulatory Serena Carrasco DO Work Phone: Hematology/Oncology Comment on above: Malignant neoplasm o f left breast in female, estrogen receptor positive, unspecified site of breast (HCC) (Primary Dx) Start: 07-03-2022 Orders Only Serena Slaughter Work Phone: Hematology/Oncology Comment on above: Malignant neoplasm o f lower-outer quadrant of left breast of female, estrogen receptor positive (HCC) (Primary Dx) Start: 07-02-2022 Telephone encounter Jacinta ambriz MD Work Phone: [facility] [place] Comment on above: Medication Request Start: 06-26-2022 Orders Only Wendy Madison [facility] HB-3 Comment on above: Abnormal ultrasound of breast (Primary Dx) Start: 06-25-2022 Refill Serena Slaughter Work Phone: Hematology/Oncology Comment on above: Refill Request Start: 06-01-2022 Documentation procedure Mammog abdirashid Coordinator [facility] Start: 06-01-2022 Letter encounter Mammography Coordinator [facility] Department Start: 05-25-2022 Refill Serena Slaughter Work Phone: Hematology/Oncology Comment on above: Refill Request Start: 04-26-2022 Telephone encounter Kassy baires HULLER OPERATOR.PLATEN GRINDER Work Phone: Hematology/Oncology Comment on above: Results Start: 03-26-2022 End: 03-26-2022 Patient encounter procedure Subhash Avila PA-C Work Phone: Orthopaedics Comment on above: It band syndrome, ri ght (Primary Dx); Status post total replacement of right hip; Primary osteoarthritis of right knee Start: 03-26-2022 End: 03-26-2022 Subsequent hospital visit by physician Radio General Veronica Lee Work Phone: Radiology Comment on above: Right hip pain [M25. 551] Start: 03-25-2022 Refill Myla Patton lynne Work Phone: Podiatry Comment on above: Refill Request Start: 03-20-2022 ambulatory Jacinta huffman MD Work Phone: [facility] [place] Comment on above: CTA Abdomen and Pelv is Start: 03-20-2022 E-mail encounter fro m caregiver Jacinta Rivas MD Work Phone: [facility] Start: 02-23-2022 Telephone encounter Kassy baires HULLER OPERATOR.PLATEN GRINDER Work Phone: Hematology/Oncology Comment on above: Patient Question Start: 02-19-2022 End: 02-19-2022 Patient encounter status Jacinta Rivas MD Work Phone: [facility] [place] Start: 02-19-2022 End: 02-19-2022 Periodic preventive med est patient 40-64yrs Jacinta Rivas MD Work Phone: Internal Medicine [place] Comment on above: Routine medical exam (Primary Dx); Elevated glucose; Acute cystitis without hematuria; Encounter for immunization Start: 02-07-2022 Telephone encounter Brent watts APRN.PLATEN GRINDER Work Phone: [facility] Comment on above: Results Start: 02-05-2022 End: 02-05-2022 Patient encounter procedure Victoria Wendy DUARTE.PLATEN GRINDER Work Phone: [facility] Comment on above: Frequent urination ( Primary Dx) Start: 01-25-2022 Orders Only Myla batista Work Phone: Podiatry Start: 01-22-2022 End: 01-22-2022 ambulatory Treatment Rm 13 [facility] Work Phone: Hematology/Oncology Comment on above: Malignant neoplasm o f left breast in female, estrogen receptor positive, unspecified site of breast (HCC) (Primary Dx) Start: 11-30-2021 End: 11-30-2021 ambulatory [facility] Work Phone: Start: 11-30-2021 End: 11-30-2021 Patient encounter procedure [facility] Start: 10-11-2021 End: 10-11-2021 Patient encounter procedure Eliz Bingham MD Work Phone: [facility] Comment on above: Malignant neoplasm o f lower-outer quadrant of left breast of female, estrogen receptor positive (HCC) (Primary Dx) Start: 09-08-2021 ambulatory Jacinta huffman MD Work Phone: Internal Medicine [place] Comment on above: Paxlovid information Start: 09-08-2021 E-mail encounter fro m caregiver Jacinta Rivas MD Work Phone: [facility] Start: 09-08-2021 Telephone encounter Jacinta ambriz MD Work Phone: [facility] [place] Comment on above: Covid19 Concern Start: 09-07-2021 ambulatory Jacinta huffman MD Work Phone: Internal Medicine [place] Comment on above: Tested positive Start: 08-14-2021 Refill Myla Patton lynne Work Phone: Podiatry Comment on above: Refill Request Start: 08-09-2021 End: 08-09-[address] Work Phone: [facility] Start: 08-09-2021 End: 08-09-2021 Nutrition therapy Serenity Godwin RD Work Phone: Radiation Oncology Comment on above: Nutrition Assessment Start: 08-07-2021 End: 08-07-2021 ambulatory Treatment Rm 7 [facility] Work Phone: Hematology/Oncology Comment on above: Malignant neoplasm o f left breast in female, estrogen receptor positive, unspecified site of breast (HCC) (Primary Dx) Start: 08-02-2021 Nursing evaluation o f patient and report Chantale Bundy RN Hematology/Oncology Comment on above: Examination of parti cipant in clinical trial (Primary Dx) Start: 08-02-2021 End: 08-02-2021 Patient encounter procedure Serena Carrasco DO Work Phone: [facility] Start: 08-02-2021 End: 08-02-2021 ambulatory Serena Carrasco DO Work Phone: Hematology/Oncology Comment on above: Malignant neoplasm o f left breast in female, estrogen receptor positive, unspecified site of breast (HCC) (Primary Dx) Start: 08-01-2021 Orders Only Serena Slaughter Work Phone: Hematology/Oncology Comment on above: Malignant neoplasm o f left breast in female, estrogen receptor positive, unspecified site of breast (HCC) (Primary Dx); Nontoxic single thyroid nodule Start: 02-13-2021 End: 02-13-2021 Subsequent hospital visit by physician [facility] [place] Work Phone: Radiology Comment on above: Cough [R05.9] Start: 01-03-2021 End: 01-03-2021 Subsequent hospital visit by physician X[facility] [place] Work Phone: Radiology Comment on above: Cough [R05] Start: 01-27-2018 Patient encounter procedure Serena Carrasco DO Work Phone: [facility] Work Phone: Start: 03-22-2017 End: 03-22-2017 Annotation/Addendum Mindi Dasilva [employer] [facility] al Medicine Start: 03-14-2017 End: 03-14-2017 Office outpatient visit 25 minutes Mindi Paredes Internal Medicine Start: 02-11-2017 End: 02-11-2017 Periodic preventive med est patient 40-64yrs Mindi Paredes Internal Medicine Start: 07-28-2015 End: 07-28-2015 Office outpatient visit 25 minutes Mindi Dasilva [facility] Start: 07-18-2015 End: 07-18-2015 Office outpatient visit 25 minutes Mindi Dasilva [facility] Start: 07-11-2015 End: 07-11-2015 Office outpatient visit 25 minutes Mindi Dasilva [facility] Start: 06-13-2015 End: 06-13-2015 Office outpatient visit 15 minutes Mindi Dasilva [facility] Start: 10-18-2014 End: 10-18-2014 Office outpatient visit 25 minutes Mindi Dasilva [facility] Start: 07-19-2014 End: 07-19-2014 Annotation/Addendum Mindi Paredes [employer] Consultant [facility] Medicine Start: 07-16-2014 End: 07-16-2014 Office outpatient visit 15 minutes Mindi Dasilva [facility] Start: 07-02-2014 End: 07-02-2014 Office outpatient visit 15 minutes Mindi Dasilva [facility] Start: 03-19-2014 End: 03-19-2014 Office outpatient visit 25 minutes Mindi Dasilva [facility] Start: 03-02-2014 End: 03-02-2014 Phone Encounter Mindi Paredes [employer] Consult[facility] al Medicine Start: 11-30-2013 End: 11-30-2013 Periodic preventive med est patient 40-64yrs Mindi Brown [facility] Internal Medicine Start: 11-18-2013 End: 11-18-2013 Annotation/Addendum Mindi Brown [facility] Technology Consultant al Medicine Start: 11-18-2013 End: 11-18-2013 Office outpatient visit 25 minutes Mindi Dasilva [facility] Internal Medicine Start: 11-02-2013 End: 11-02-2013 Office outpatient visit 25 minutes Mindi Brown [facility] Internal Medicine Start: 10-19-2013 End: 10-19-2013 Annotation/Addendum Mindinoel Dasilva [facility] Technology Consultant al Medicine Start: 10-14-2013 End: 10-14-2013 Office outpatient visit 25 minutes Mindi Dasilva [facility] Internal Medicine Start: 01-15-2013 End: 01-15-2013 Patient encounter procedure Mindi Dasilva [facility] Internal Medicine Start: 10-11-2011 End: 10-11-2011 Patient encounter procedure Mindi Dasilva [facility] Internal Medicine Start: 08-29-2011 End: 08-29-2011 Patient encounter procedure Mindi Dasilva [facility] Internal Medicine Start: 08-01-2011 End: 08-01-2011 Patient encounter procedure Mindi Brown [facility] Internal Medicine Start: 11-10-2010 End: 11-10-2010 Patient encounter procedure Mindi Dasilva [facility] Internal Medicine Start: 10-10-2010 End: 10-10-2010 Patient encounter procedure Mindi Dasilva [facility] Internal Medicine Start: 04-21-2010 End: 04-21-2010 Patient encounter procedure Mindi Dasilva [facility] Internal Medicine Start: 04-17-2010 End: 04-17-2010 Patient encounter procedure Mindi Dasilva [facility] Internal Medicine Start: 09-19-2009 End: 09-19-2009 Patient encounter procedure Mindi Dasilva [facility] Internal Medicine Start: 09-09-2009 End: 09-09-2009 Patient encounter procedure Mindi Dasilva [facility] Internal Medicine Start: 01-28-2009 End: 01-28-2009 Patient encounter procedure Mindi Dasilva [facility] Internal Medicine Start: 05-11-2008 End: 05-11-2008 Office outpatient visit 15 minutes Mindi Paredes Internal Medicine Start: 09-04-2007 End: 09-04-2007 Patient encounter procedure Mindi Dasilva [facility] Internal Medicine Start: 03-07-2007 End: 03-07-2007 Office outpatient visit 40 minutes Mindi Brown [facility] Internal Medicine Start: 09-04-2006 End: 09-04-2006 Office outpatient visit 10 minutes Mnidi Dasilva [facility] Internal Medicine Start: 07-18-2006 End: 07-18-2006 Patient encounter procedure Mindi Dasilva [facility] Internal Medicine Start: 06-27-2006 End: 06-27-2006 Office outpatient visit 25 minutes Mindi Dasilva [facility] Internal Medicine Start: 06-24-2006 End: 06-24-2006 Historical Summary Mindi Dasilva [facility] Technology Consultant al Medicine Start: 06-20-2006 End: 06-20-2006 Refill Request Mindi Dasilva [facility] Technology Consultant al Medicine Procedures Date Procedure Procedure Detail Performing Clinician Start: 10-26-2024 Urnls dip stick/tablet rgnt auto w/o microscopy Lisbet Pizano HULLER OPERATOR.PLATEN GRINDER Work Phone: Start: 10-26-[address] attenuation skull base mid-thigh Serena Carrasco DO Work Phone: Start: 10-26-2024 Gluc bld gluc mntr dev cleared fda spec home use [facility] Start: 09-23-2024 [facility] real time w/image complete Nel Day HULLER OPERATOR.PLATEN GRINDER Work Phone: Start: 09-22-2024 Urnls dip stick/tablet reagent auto microscopy Nel Day HULLER OPERATOR.PLATEN GRINDER Work Phone: Start: 09-22-2024 Urnls dip stick/tablet rgnt auto w/o microscopy Nel Day HULLER OPERATOR.PLATEN GRINDER Work Phone: Start: 09-07-2024 Urnls dip stick/tablet rgnt auto w/o microscopy Cathy Burr 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 Work Phone: Start: 06-30-2024 Gluc bld gluc mntr dev cleared fda spec home use [facility] Start: 05-18-2024 Gluc bld gluc mntr dev cleared fda spec home use Micki Marcelino MD Work Phone: Start: 05-18-2024 End: 05-18-2024 Mastectomy partial Eliz Bingham MD Work Phone: Start: 05-18-2024 End: 05-18-2024 Removal intact mammary implant Micki Marcelino MD Work Phone: Start: 05-18-2024 Gluc bld gluc mntr dev cleared fda spec home use Micki Marcelino MD Work Phone: Start: 05-07-2024 STREP A MOLECULAR (POC) Cathy Brur 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 Work Phone: Start: 04-28-2024 Radiologic exam chest 2 views Carlafazal Forbes HULLER OPERATOR.PLATEN GRINDER Work Phone: Start: 04-28-2024 INFLUENZA A&B MOLECULAR (POC) [facility] Start: 04-15-2024 GLOOKO ON DEMAND [facility] Provider Start: 04-13-2024 Dup-scan xtr veins unilateral/limited study Serena Carrasco DO Work Phone: Start: 04-06-2024 Gluc bld gluc mntr dev cleared fda spec home use [facility] Provider Start: 03-25-2024 Digital breast tomosynthesis unilateral Eliz Bingham MD Work Phone: Start: 03-18-2024 Hemoglobin A1c/Hemoglobin.total in Blood Jacinta Rivas MD Work Phone: Start: 02-05-2024 GLOOKO ON DEMAND [facility] Start: 01-13-2024 Radex hip unilateral with pelvis 2-3 views Subhash Avila PA-C Work Phone: Start: 12-30-[address] attenuation skull base mid-thigh Serena Carrasco DO Work Phone: Start: 12-30-2023 Gluc bld gluc mntr dev cleared fda spec home use [facility] Provider Start: 10-23-2023 Urnls dip stick/tablet rgnt auto w/o microscopy Lisbet Pizano HULLER OPERATOR.PLATEN GRINDER Work Phone: Start: 07-16-2023 Hemoglobin A1c/Hemoglobin.total in Blood Jacinta Rivas MD Work Phone: Start: 07-08-2023 Gluc bld gluc mntr dev cleared fda spec home use Carla Forbes HULLER OPERATOR.PLATEN GRINDER Work Phone: Start: 07-08-2023 Urnls dip stick/tablet rgnt auto w/o microscopy Carla Forbes HULLER OPERATOR.PLATEN GRINDER Work Phone: Start: 01-28-[address] attenuation skull base mid-thigh Kassy Raman HULLER OPERATOR.PLATEN GRINDER Work Phone: Start: 09-20-2022 Urnls dip stick/tablet reagent auto microscopy Serena Carrasco DO Work Phone: Start: 08-15-2022 Mri breast without&with contrast w/cad bilateral Eliz Bingham MD Work Phone: Start: 05-31-2022 Mammography Mammography Coordinator Start: 03-26-2022 Radiologic examination pelvis 1/2 views Subhash Avila PA-C Work Phone: Start: 02-19-2022 Hemoglobin A1c/Hemoglobin.total in Blood Jacinta Rivas MD Work Phone: Start: 02-19-2022 INFLUENZA VACCINE QUADRIVALENT 6 MO - 64 YRS IM Jacinta Rivsa MD Work Phone: Start: 02-19-2022 Urnls dip stick/tablet rgnt auto w/o microscopy Jacinta Rivas MD Work Phone: Start: 02-05-2022 Urnls dip stick/tablet rgnt auto w/o microscopy Paige Pepe HULLER OPERATOR.PLATEN GRINDER Work Phone: Start: 11-30-2021 Radiography of esophagus Start: 11-30-2021 Ultrasound elastography Start: 11-30-2021 Ultrasonography of abdomen Start: 07-31-2021 Adult depression screening assessment Serena Carrasco DO Work Phone: Start: 02-13-2021 Radiologic exam chest 2 views Jacinta Rivas MD Work Phone: Start: 01-03-2021 Radiologic exam chest 2 views Paige Pepe HULLER OPERATOR.PLATEN GRINDER Work Phone: Start: 02-26-2019 Mammography Serena Carrasco DO Work Phone: Start: 10-07-2018 Lipid 1996 panel - Serum or Plasma Serena Carrasco DO Work Phone: Start: 08-13-2018 History of radiation therapy History of radiation therapy Serena Carrasco DO Work Phone: Start: 05-01-2017 End: 05-01-2017 12 lead ECG Comments: See Note; NOTES: [facility] Cardiovascular Services [address] [place] [address] 12 Lead EKG 04/24/17 1044 MR#: [id number] Acct: [id number] Name: PAT SORTO Rep #: [id number] : 1960 57 From: Serena Callaway MD Attending Dr: Subhash Silverio MD Status: DEP [facility] Ordering Dr: Subhash Silverio MD Date: 04/24/17 Location: [facility] Sex: F C Admitted: Test Reason : PRE OP Blood Pressure : / mmHG Vent. Rate : 100 BPM Atrial Rate : 100 BPM P-R Int : 114 ms QRS Dur : 078 ms QT Int : 346 ms P-R-T Axes : 025 -06 001 degrees QTc Int : 446 ms Normal sinus rhythm Poor R wave progression Confirmed by SID NARAYAN, SERENA ([id number]), editor in chief TATE BOOTH ([id number]) on 05/01/2017 12:04:39 PM Referred By: Subhash Silverio Confirmed By:SERENA CALLAWAY MD 05/01/17 1204 Date Serena Callaway MD CC: Mindi Dasilva DO; Subhash Silverio MD Signed Mindi Dasilva Start: 04-26-2017 End: 04-26-2017 Discharge Instruction Comments: See Note; NOTES: [facility] Medical Records Department [address] [place] [address] Instructions for Home/Discharge Instructions 04/24/17 1243 MR#: [id number] Acct: [id number] Name: PAT SORTO Rep #: [id number] : 1960 57 From: Subhash Silverio MD PCP: Mindi Dasilva DO Status: DEP [facility] Discharge Diet: Light diet - advance as tolerated - if you have questions about your diet instructions, please talk to you doctor. Discharge Activity: May Not Drive - for 1 week or while taking narcotic pain medicine. May shower in (days): 1 Lifting Restrictions: 10 pounds Call your doctor if your incision/area has: Continuous Slow Oozing, Sudden Increased Bleeding, Increased Pain/ Swelling, Increased Redness, Foul Smelling Discharge Call your doctor if you observe: Fever of 101 or Higher Suture Line Care: Avoid Pulling/Pushing, Avoid Pinching/Bending Additional Dressing/Incision Instructions:: Change or remove dressing in 3 days. Leave steri-strips in place for 1 week. Allergies/Adverse Reactions: Allergies No Known Allergies Allergy (Verified 04/23/17 09:51) Medications to take at Discharge Trazodone HCl [Desyrel] 25 mg PO QHS PRN 06/07/14 ascorbic acid (vitamin C) 100 mg tablet 500 mg PO QDAY 03/29/17 calcium carbonate 600 mg calcium (1,500 mg) tablet 600 mg PO QDAY tab 03/29/17 lisinopril 20 mg-hydrochlorothiazide 12.5 mg tablet 1 tab PO QDAY 03/29/17 ursodiol 500 mg tablet 1,500 mg PO QDAY tab 03/29/17 vitamin E (dl, acetate) 100 unit capsule 400 unit PO QDAY ea 03/29/17 aspirin 81 mg chewable tablet 81 mg PO ONCE 04/04/17 Cyanocobalamin (Vitamin B-12) [Vitamin B-12] 1,000 mcg PO DAILY 04/23/17 Ergocalciferol [Vitamin D] 1.25 mg PO TUSA 04/23/17 Hydrocodone Bitart/Apap 5-325 [[place] 5MG-325MG] 1 tablet PO Q6H PRN PRN #10 tablet 04/24/17 The following prescriptions were given: Hydrocodone Bitart/Apap 5-325 [T[place]edo 5MG-325MG] 1 tablet PO Q6H PRN PRN #10 tablet PRN Reason: Pain Primary Care Physician: Mindi Dasilva DO [Primary Care Provider] - Please Follow Up With: Subhash Silverio MD - [phone] When: Call to make an appointment to be seen in about 10 days. 04/26/17 0617 <Electronically signed by Subhash Silverio MD> Date Subhash Silverio MD CC: Mindi Callejas Start: 04-26-2017 End: 04-26-2017 Operative Report Comments: See Note; NOTES: [facility] Medical Records Department [address] [place] [address] Operative Report 04/24/17 1323 MR#: [id number] Acct: [id number] Name: PAT SORTO Rep #: [id number] : 1960 57 From: Subhash Silverio MD PCP: Mindi Dasilva DO Status: [facility] Location: [facility] Problem List (1) Breast cancer metastasized to axillary lymph node Status: Acute Qualifiers: Laterality: left Qualified Code(s): C50.912 - Malignant neoplasm of unspecified site of left female breast; C77.3 - Secondary and unspecified malignant neoplasm of axilla and upper limb lymph nodes Report of Operation Date of Procedure: 04/24/17 Pre-Operative Diagnosis: Metastatic lower outer left breast cancer Post-Operative Diagnosis: Same Surgery/Procedure Performed:: Right internal jugular 6 Urdu PowerPort placement Description of Surgical Findings:: Right internal jugular 6 Urdu PowerPort placement Timeout and informed consent was obtained. 57-year-old female was taken to the operating place when table. She underwent monitored Ancef 2 g are given intravenously preoperatively. The right neck and chest were sterilely prepped and draped. Ultrasound was used to identify the right internal jugular vein. Under ultrasound guidance 1% lidocaine mixed 50-50 with 0.5% Marcaine. Throughout the procedure total 25 cc was used. Local was instilled. Micropuncture needle inserted. Micropuncture wire inserted. Local instilled down upon the chest wall transverse incision was created and using electrocautery subcutaneous pocket was created. The tubing was then tunneled from the chest of the neck. Micropuncture wire exchanged out over sheath for an 035 J-wire. The sheath dilator was inserted. The wire and dilator removed. The catheter was advanced through the sheath. The sheath was split leaving the catheter position. During fluoroscopy the catheter was positioned at the SVC atrial junction. It was amputated to length and connected to the port device. The port device was placed in the pocket and secured there with interrupted 2-0 silk. Skin edges were approximated with interrupted 3-0 Vicryl. The neck site was closed with interrupted 5-0 Vicryl. Steri-Strips Telfa and OpSite dressings applied. Sponge instrument and needle counts were reported to the surgeon to be correct. Blood loss was minimal. No apparent complications. No specimen. No drains. Blood loss minimal. Stat portable chest x-ray is pending Subhash Silverio M.D., F.A.C.S. Type of Anesthesia:: Local MAC Anesthesiologist: Oskar Hernandez 04/26/17 0617 <Electronically signed by Subhash Silverio MD> Date Subhash Silverio MD CC: Mindi Dasilva DO; Subhash Silverio MD Signed Mindi Dasilva Start: 04-24-2017 End: 04-24-2017 Chest 1 View (Portable) Comments: See Note; NOTES: [facility] Imaging Services [address] [place] [id number] Chest 1 View (Portable) MR#: [id number] Acct: [id number] Name: PAT SORTO Rep #: [id number] : 1960 F 57 From: Wil Arora MD PCP: Mindi Dasilva DO Status: [facility] Study: Chest 1 View (Portable) Date of Exam: 04/24/17 Exam# [id number] Ordering Dr: Subhash Silverio MD STUDY: X-RAY CHEST REASON FOR EXAM: Female, 57 years old. Port placement. TECHNIQUE: Single AP portable view of the chest. COMPARISON: Comparison is made with prior study dated June 13, 2015. FINDINGS: A right-sided brandy catheter has been placed. The tip is at the junction of the superior vena cava and right atrium. EKG electrodes are seen. The lungs are clear and expanded. There is no demonstrated pleural abnormality. Normal size heart. Normal mediastinum and gosia. Normal visualized pulmonary arteries. There is atherosclerotic tortuosity of the aortic arch and descending thoracic aorta. Normal visualized thoracic spine. Normal visualized ribs, clavicles, and shoulders. There is no demonstrated abnormality of the visualized soft tissue structures of the upper abdomen. RAD/Chest 1 View (Portable) IMPRESSION: The tip of the port is at the junction of superior vena cava and right atrium. Electronically Signed: Wil Arora MD at 14:30 EST Tel [phone], Service support , CC: Mindi Dasilva DO; Subhash Silverio MD Script Worker: Signed Mindi Dasilva Start: 04-19-2017 End: 04-19-2017 Surgery Visit Report Comments: See Note; NOTES: [place] [address] OFFICE VISIT Date of Service: 04/19/17 MR#: [id number] Acct: [id number] Name: PAT SORTO Rep #: [id number] : 1960 Provider: Subhash Silverio MD Age/Sex: 57/F Location: [facility] Status: Signed Intake Intake Visit Reasons: Left axillary Lymph node biopsy, discuss surgery [employer] Supervisor Required: No Is patient in pain?: No Allergies No Known Allergies Allergy (Verified 04/09/17 13:20) Medications Trazodone HCl [Desyrel] 25 mg PO QHS 06/07/14 [History Confirmed 04/09/17] ascorbic acid (vitamin C) 100 mg tablet 100 mg PO QDAY 03/29/17 [History Confirmed 04/09/17] calcium carbonate 600 mg calcium (1,500 mg) tablet 600 mg PO QDAY tab 03/29/17 [History Confirmed 04/09/17] ergocalciferol (vitamin D2) 50,000 unit capsule 50,000 unit PO QWEEK 03/29/17 [History Confirmed 04/09/17] lisinopril 20 mg-hydrochlorothiazide 12.5 mg tablet 1 tab PO QDAY 03/29/17 [History Confirmed 04/09/17] ursodiol 500 mg tablet 500 mg PO QDAY tab 03/29/17 [History Confirmed 04/09/17] vitamin B12 1,000 mcg-folic acid 400 mcg sublingual tablet tab SUBLINGUAL QDAY 03/29/17 [History Confirmed 04/09/17] vitamin E (dl, acetate) 100 unit capsule unit PO QDAY ea 03/29/17 [History Confirmed 04/09/17] aspirin 81 mg chewable tablet 81 mg PO ONCE 04/04/17 [History Confirmed 04/09/17] [facility] Medical History Breast cancer (Acute) Abnormal mammogram of left breast (Acute) HTN (hypertension) (Chronic) Surgical History History of section (Acute) S/P breast biopsy (Acute) S/P total knee replacement (Acute) Family History Mother Diabetes Heart disease Hypertension CVA (cerebral vascular accident) Father Diabetes Hypertension Social History Smoking Status: Never smoker alcohol intake: current alcohol intake frequency: 0-2 drinks per day substance use type: does not use HPI HPI HPI: PAT SORTO, is a 57 F who presents to the office today for surgical follow-up of biopsy-proven left breast cancer. My most recent office charting reflects the following [facility] Medical History Abnormal mammogram of left breast (Acute) HTN (hypertension) (Chronic) Surgical History History of section (Acute) S/P breast biopsy (Acute) S/P total knee replacement (Acute) Family History Mother Diabetes Heart disease Hypertension CVA (cerebral vascular accident) Father Diabetes Hypertension Social History Smoking Status: Never smoker alcohol intake: current alcohol intake frequency: 0-2 drinks per day substance use type: does not use HPI HPI HPI: PAT SORTO, is a 57 F who presents to the office today for postoperative discussion regarding her ultrasound-guided needle core biopsy lower outer left breast that I performed for her on March 29, 2017. At her request she scheduled this is a follow-up. Her pre-operative imaging demonstrates a double lesion finding in the lower outer left breast difficult to fully detect on mammogram and better seen on ultrasound. At the 5 o'clock position +6 cm there is a ill-defined irregular solid nodule measuring 1.4 x 1.3 x 1.1 cm. Adjacent to this there is additional nodule measuring 1.4 x 1.1 x 0.9 cm. Both of these were felt to be highly suspicious BI-RADS Category 5 Final pathology demonstrated invasive ductal carcinoma, nuclear grade 2. Estrogen receptor greater than 95%. Progesterone receptor greater than 95%. HER-2/ariane 0. Assessment AND Plan Plan Today was approximately a 40 minute vssj-wc-eozd consultative appointment regarding these findings. Admittedly the patient is very frustrated because she points directly to the tumor site and states it is been present for at least a year and a half and that she has been describing this discomfort to her physicians at that site. She states that she had been evaluated for possible lung cancer with chest x-rays PET scans CAT scans and that no one ever recommended a mammogram. We worked our way through that discussion. I then offered her consideration for surgical treatment options. I have instructed her that there were 2 tandem lesions side by side. I still believe that she would be a candidate for breast conservation surgery with a lumpectomy lower outer left breast and left axillary sentinel lymph node biopsy. I compared and contrasted that with a mastectomy with or without reconstruction. We briefly discussed radiation treatment. An addition I discussed recommendations for a hematology oncology consultation. We discussed radiation oncology appointments. I am recommending to her a bilateral breast MRI. The patient is not clear as to whether she wants to pursue definitive treatment here at [place]. I offered her any of the 4 local sr. director product management oncologist. She is aware that you are associated with [facility] and 2 are associated with [facility]. The patient is leaning toward wanting care Via [facility] physicians. For that reason I have strongly recommended to her that we obtain the MRI through [facility]. As noted on her previous evaluation she is good friends with Matilde. She will clearly discuss these findings with her. I have additionally offered the patient tertiary referral to breast specialty center. At the completion of her appointment we will schedule her for bilateral breast MRI. The patient is to consider her treatment options and we contact us as to how she would like to proceed. I very much appreciate the ongoing opportunity of assisting with her surgical care. cc:Dr Brown Silverio M.D., F.A.C.S. Orders Orders: Breast w/o and/or W Cont Bilat Today C50.919 04/09/17 1636<Electronically signed by Subhash Silverio MD> Date Subhash Matson It is of note that although over the past year and a half she has had chest x-rays and CT scans and PET scans because of a pulmonary finding she did not have a mammogram until recently. At my request on April 18, 2017 she had bilateral breast MRI are performed. It was during my previous office discussion that the patient made a comment that she was considering referral to [facility] specialty breast center. It is for that reason that we obtain the MRI in [place]. The results suggest that the 2 lesions side by side lower outer left breast in conglomerate measure 2.7 x 1.8 x 3.5 cm. In addition there is suspicious left axillary adenopathy. In addition there is suspicious left sub-pectoral region lymph nodes. This information was shared with her today. In addition we discussed hematology oncology. The patient is requesting referral to Dr. Serena Carrasco Office Procedures 13823 Biopsy of Lymph Node Performed By: Procedure performed by: alis Silverio Details: Ultrasound-guided needle core biopsy left axillary lymph nodes 2 Timeout and informed consent was obtained. The patient is felt to have suspicious adenopathy of the left axilla. I performed a focused ultrasound and demonstrated one lymph node that measured 1.8 cm in length another lymph node measured 1.1 cm in diameter. Under ultrasound guidance I utilized 1% lidocaine mixed 50-50 with 0.5% Marcaine and inserted local. I then make a small stab incision. A use of 14-gauge Monopty needle. The lesions were well identified. Color flow imaging was used to assure positioning of vessels. I packed the needle core biopsy so as to not pass point. I obtained one core of the more inferior lymph node and 2 cores of the more superior lymph node. I placed marking clips in each of the areas. Hemostasis was good. She did not have any significant bleeding. She had significant comfort. I placed the course in formalin separately labeled as inferior lymph node and more superior lymph node. These were located in the mid left axilla. There were no apparent complications. I felt the core biopsy would be most likely provide a definitive pathology which would be pertinent in this circumstance to assist with appropriate staging. Procedure Time Out Time Out Informed consent given: Yes Consent signed: Yes Time out checklist: patient, procedure, site marked/identified, positioning of patient, supplies available, allergies confirmed, team agrees on procedure Time out satff in room: Yes Time out verified: Yes Time out date: 04/19/17 Time out time: 12:30 Assessment AND Plan 1. Malignant neoplasm of lower-outer quadrant of left breast of female, estrogen receptor positive C50.512; Z17.0 Plan The patient is requesting referral to Dr. Serena Carrasco hematology oncology. I was able to contact him by phone. He was willing to see the patient and expedite her care today. After his office visit he will be contacted me by phone. He is concerned about her stage IIIc disease. He is recommending port placement to facilitate chemotherapy neoadjuvant/preoperatively. We will schedule and expedite placement of a right internal jugular port. In addition the patient will be notified of pathology results as they become available. The patient is very much aware of the MRI findings and current concern regarding metastatic disease. Cc: Dr. Carrasco and Dr Brown Silverio M.D., F.A.C.S. Plan Detail Other Orders Orders: 04/19/17 1556 <Electronically signed by Subhash Silverio MD> Date Subhash Silverio MD Cosigner Signature: Date (if applicable) CC: Mindi Dasilva DOSeth Callejas Start: 04-09-2017 End: 04-09-2017 Surgery Visit Report Comments: See Note; NOTES: [facility] [address] [place] [address] OFFICE VISIT Date of Service: 04/09/17 MR#: [id number] Acct: [id number] Name: PAT SORTO Rep #: [id number] : 1960 Provider: Subhash Silverio MD Age/Sex: 57/F Location: [facility] Status: Signed Intake Intake Visit Reasons: breast path [employer] Supervisor Required: No Is patient in pain?: No Allergies No Known Allergies Allergy (Verified 04/09/17 13:20) Medications Trazodone HCl [Desyrel] 25 mg PO QHS 06/07/14 [History Confirmed 04/09/17] ascorbic acid (vitamin C) 100 mg tablet 100 mg PO QDAY 03/29/17 [History Confirmed 04/09/17] calcium carbonate 600 mg calcium (1,500 mg) tablet 600 mg PO QDAY tab 03/29/17 [History Confirmed 04/09/17] ergocalciferol (vitamin D2) 50,000 unit capsule 50,000 unit PO QWEEK 03/29/17 [History Confirmed 04/09/17] lisinopril 20 mg-hydrochlorothiazide 12.5 mg tablet 1 tab PO QDAY 03/29/17 [History Confirmed 04/09/17] ursodiol 500 mg tablet 500 mg PO QDAY tab 03/29/17 [History Confirmed 04/09/17] vitamin B12 1,000 mcg-folic acid 400 mcg sublingual tablet tab SUBLINGUAL QDAY 03/29/17 [History Confirmed 04/09/17] vitamin E (dl, acetate) 100 unit capsule unit PO QDAY ea 03/29/17 [History Confirmed 04/09/17] aspirin 81 mg chewable tablet 81 mg PO ONCE 04/04/17 [History Confirmed 04/09/17] [facility] Medical History Abnormal mammogram of left breast (Acute) HTN (hypertension) (Chronic) Surgical History History of section (Acute) S/P breast biopsy (Acute) S/P total knee replacement (Acute) Family History Mother Diabetes Heart disease Hypertension CVA (cerebral vascular accident) Father Diabetes Hypertension Social History Smoking Status: Never smoker alcohol intake: current alcohol intake frequency: 0-2 drinks per day substance use type: does not use HPI HPI HPI: PAT SORTO, is a 57 F who presents to the office today for postoperative discussion regarding her ultrasound-guided needle core biopsy lower outer left breast that I performed for her on March 29, 2017. At her request she scheduled this is a follow-up. Her pre-operative imaging demonstrates a double lesion finding in the lower outer left breast difficult to fully detect on mammogram and better seen on ultrasound. At the 5 o'clock position +6 cm there is a ill-defined irregular solid nodule measuring 1.4 x 1.3 x 1.1 cm. Adjacent to this there is additional nodule measuring 1.4 x 1.1 x 0.9 cm. Both of these were felt to be highly suspicious BI-RADS Category 5 Final pathology demonstrated invasive ductal carcinoma, nuclear grade 2. Estrogen receptor greater than 95%. Progesterone receptor greater than 95%. HER-2/ariane 0. Assessment AND Plan Plan Today was approximately a 40 minute scae-gx-zyqk consultative appointment regarding these findings. Admittedly the patient is very frustrated because she points directly to the tumor site and states it is been present for at least a year and a half and that she has been describing this discomfort to her physicians at that site. She states that she had been evaluated for possible lung cancer with chest x-rays PET scans CAT scans and that no one ever recommended a mammogram. We worked our way through that discussion. I then offered her consideration for surgical treatment options. I have instructed her that there were 2 tandem lesions side by side. I still believe that she would be a candidate for breast conservation surgery with a lumpectomy lower outer left breast and left axillary sentinel lymph node biopsy. I compared and contrasted that with a mastectomy with or without reconstruction. We briefly discussed radiation treatment. An addition I discussed recommendations for a hematology oncology consultation. We discussed radiation oncology appointments. I am recommending to her a bilateral breast MRI. The patient is not clear as to whether she wants to pursue definitive treatment here at [place]. I offered her any of the 4 local sr. director product management oncologist. She is aware that you are associated with [facility] and 2 are associated with [facility]. The patient is leaning toward wanting care Via [facility] physicians. For that reason I have strongly recommended to her that we obtain the MRI through [facility]. As noted on her previous evaluation she is good friends with Matilde. She will clearly discuss these findings with her. I have additionally offered the patient tertiary referral to breast specialty center. At the completion of her appointment we will schedule her for bilateral breast MRI. The patient is to consider her treatment options and we contact us as to how she would like to proceed. I very much appreciate the ongoing opportunity of assisting with her surgical care. cc:Dr Brown Silverio M.D., F.A.C.S. Orders Orders: 04/09/17 1636 <Electronically signed by Subhash Silverio MD> Date Subhash Silverio MD Cosigner Signature: Date (if applicable) CC: Mindi Callejas Start: 04-04-2017 End: 04-04-2017 Orthopedic Visit Report Comments: See Note; NOTES: [facility] [address] [place] [address] OFFICE VISIT Date of Service: 04/04/17 MR#: [id number] Acct: [id number] Name: PAT SORTO Rep #: [id number] : 1960 Provider: Palma Carter DO Age/Sex: 57/F Location: [facility] Status: Signed Intake Vital Signs04/04/17 Height 5 ft 7 in 04/04/17 Weight: 191 lb 04/04/17 Body Mass Index (BMI) 29.9 Intake Visit Reasons: RT HIP FLEXOR PAIN Is patient in pain?: No Allergies No Known Allergies Allergy (Verified 04/04/17 08:18) Medications Trazodone HCl [Desyrel] 25 mg PO QHS 06/07/14 [History Confirmed 04/04/17] ascorbic acid (vitamin C) 100 mg tablet 100 mg PO QDAY 03/29/17 [History Confirmed 04/04/17] calcium carbonate 600 mg calcium (1,500 mg) tablet 600 mg PO QDAY tab 03/29/17 [History Confirmed 04/04/17] ergocalciferol (vitamin D2) 50,000 unit capsule 50,000 unit PO QWEEK 03/29/17 [History Confirmed 04/04/17] lisinopril 20 mg-hydrochlorothiazide 12.5 mg tablet 1 tab PO QDAY 03/29/17 [History Confirmed 04/04/17] ursodiol 500 mg tablet 500 mg PO QDAY tab 03/29/17 [History Confirmed 04/04/17] vitamin B12 1,000 mcg-folic acid 400 mcg sublingual tablet tab SUBLINGUAL QDAY 03/29/17 [History Confirmed 04/04/17] vitamin E (dl, acetate) 100 unit capsule unit PO QDAY ea 03/29/17 [History Confirmed 04/04/17] aspirin 81 mg chewable tablet 81 mg PO ONCE 04/04/17 [History Confirmed 04/04/17] [facility] Medical History Abnormal mammogram of left breast (Acute) HTN (hypertension) (Chronic) Surgical History History of section (Acute) S/P breast biopsy (Acute) S/P total knee replacement (Acute) Family History Mother Diabetes Heart disease Hypertension CVA (cerebral vascular accident) Father Diabetes Hypertension Social History Smoking Status: Never smoker alcohol intake: current alcohol intake frequency: 0-2 drinks per day substance use type: does not use HPI RT HIP FLEXOR PAIN: Details: PAT SORTO is a 57 year old F here today for right hip pain. She states back in September 2016 she had fallen, she landed on her left side but feels she pulled the muscles on right side. She states the more active she is the more constant the anterior, groin right hip pain is. She denies pain into her leg. No tingling/numbness. Occasionally with walking she feels she limps some. She will take Advil as needed for pain which does seem to help. She has seen Dr. Paige Dasilva who referred her here. She has not had a prior x-ray. ROS Const Reports system reviewed and no additional complaints, except as docu Eyes Reports system reviewed and no additional complaints, except as docu ENT Reports system reviewed and no additional complaints, except as docu Card Reports system reviewed and no additional complaints, except as docu Resp Reports system reviewed and no additional complaints, except as docu GI Reports system reviewed and no additional complaints, except as docu Reports system reviewed and no additional complaints, except as docu Musc Reports joint pain Skin/Breast Reports system reviewed and no additional complaints, except as docu Neuro Yes system reviewed and no additional complaints, except as docu Psych Reports system reviewed and no additional complaints, except as docu Endo Reports system reviewed and no additional complaints, except as docu Adrian/Lymph Reports system reviewed and no additional complaints, except as docu Aller/Immun Reports system reviewed and no additional complaints, except as docu Ortho Exam Right Hip Skin: Yes CDI Contralateral Normal: Yes flexion: 110 degrees internal rotation @90 degree flexion: 20 degrees external rotation @90 degree extension: 20 degrees Impingement Test: 2 Special Tests: No iliopsoas snap HIP: neg heel strike, pain with IR and ER Assessment AND Plan 1. Primary osteoarthritis of right hip M16.11; M16.11 Plan Personally reviewed the patient's medical history, medications, surgeries and recent exams if available. Obtained X-rays of patient's right hip. Personally reviewed x-rays. There is no obvious fracture, dislocation, or lucency noted but OA and protrusio with some osteophytes noted. Educated the patient on the anatomy of the hip and core. Explained that the treatment options are do nothing, work on strengthening of the legs and core, an ia injection and/or iliopsoas injection, and if the conservative care fails can consult for RED. Follow up or sooner if pain, swelling, numbness or associated symptoms, or concerns develop. All questions answered. Patient in agreement of plan. Plan Detail Other Orders Orders: 04/04/17 1356 <Electronically signed by Palma Carter DO> Date Palma Carter DO Cosigner Signature: Date (if applicable) CC: Mindi Dasilva Start: 04-04-2017 End: 04-04-2017 Hip 2-3 Views with Pelvis Comments: See Note; NOTES: [facility] [address] [place] [address] Hip 2-3 Views with Pelvis MR#: [id number] Acct: [id number] Name: PAT SORTO Rep #: [id number] : 1960 F 57 From: Alan Eason MD PCP: Mindi aDsilva DO Status: REG CLI Study: Hip 2-3 Views with Pelvis Date of Exam: 04/04/17 Exam# [id number] Ordering Dr: Palma Carter DO STUDY: X-RAY - PELVIS AND RIGHT HIP REASON FOR EXAM: Female, 57 years old. Hip pain after fall 7 months ago. TECHNIQUE: Radiological exam, hip, unilateral, with pelvis when performed; 2 or 3 views. COMPARISON: None. FINDINGS: There is a non-specific bowel gas pattern. Normal visualized soft tissue structures. There is generalized osteopenia. Normal bilateral iliac wings, sacroiliac joints and visualized sacrum. Normal bilateral superior and inferior pubic rami. Normal pubic symphysis. Normal bilateral ischial tuberosities. Normal visualized femoral head. Normal acetabulum. There is moderate arthrosis of the right hip. There is mild arthrosis of the left hip. RAD/Hip 2-3 Views with Pelvis IMPRESSION: Osteopenia with moderate arthrosis of the right hip. Mild arthrosis of the left hip. Electronically Signed: Alan Eason MD at 15:36 EST , Service support , CC: Palma Carter DO; Mindi Dasilva DO Script Worker: Signed Mindi Dasilva Start: 03-29-2017 End: 03-29-2017 Surgery Visit Report Comments: See Note; NOTES: [facility] [address] [place] [address] OFFICE VISIT Date of Service: 03/29/17 MR#: [id number] Acct: [id number] Name: PAT SORTO Rep #: [id number] : 1960 Provider: Subhash Silverio MD Age/Sex: 57/F Location: [facility] Status: Signed Intake Vital Signs03/29/17 Height 5 ft 7 in 03/29/17 Weight: 190 lb 1 oz Intake Visit Reasons: Positive Ultrasound Birads 5 03/21 [facility] Chief Complaint: left breast birads 5 [employer] Supervisor Required: No Is patient in pain?: No Allergies No Known Allergies Allergy (Verified 03/29/17 14:39) Medications Trazodone HCl [Desyrel] 25 mg PO QHS 06/07/14 [History Confirmed 03/29/17] ascorbic acid (vitamin C) 100 mg tablet 100 mg PO QDAY 03/29/17 [History Confirmed 03/29/17] calcium carbonate 600 mg calcium (1,500 mg) tablet 600 mg PO QDAY tab 03/29/17 [History Confirmed 03/29/17] ergocalciferol (vitamin D2) 50,000 unit capsule 50,000 unit PO QWEEK 03/29/17 [History Confirmed 03/29/17] lisinopril 20 mg-hydrochlorothiazide 12.5 mg tablet 1 tab PO QDAY 03/29/17 [History Confirmed 03/29/17] ursodiol 500 mg tablet 500 mg PO QDAY tab 03/29/17 [History Confirmed 03/29/17] vitamin B12 1,000 mcg-folic acid 400 mcg sublingual tablet tab SUBLINGUAL QDAY 03/29/17 [History Confirmed 03/29/17] vitamin E (dl, acetate) 100 unit capsule unit PO QDAY ea 03/29/17 [History Confirmed 03/29/17] [facility] Medical History Abnormal mammogram of left breast (Acute) HTN (hypertension) (Chronic) Surgical History History of section (Acute) S/P breast biopsy (Acute) S/P total knee replacement (Acute) Family History Mother Diabetes Heart disease Hypertension CVA (cerebral vascular accident) Father Diabetes Hypertension Social History Smoking Status: Never smoker alcohol intake: current alcohol intake frequency: 0-2 drinks per day substance use type: does not use HPI HPI HPI: PAT SORTO, is a 57 F who presents to the office today for abnormal mammogram and ultrasound imaging. Upon discussing things with the patient she stated that approximately 1 year ago she had a pulmonary infection. She had some soreness in the lower outer left breast chest wall area. This was felt possibly to be related to scar tissue or even a possible rib fracture secondary to the vigors of her cough. Her son was at the same grade as Drew and he has graduated from the [employer]. 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 7-year-old female. A0. Menarche at age 13. First child was born when she was 30. In [address] she was directed by Dr. Ford Avila to [facility]. By her report she had an excisional left breast biopsy. She has multiple hemostatic clips in the left breast. She states that that was benign. 2 years ago for routine life insurance screening she had laboratory. That demonstrates abnormal liver function tests. She is cared for by and she carries a diagnosis of primary biliary cirrhosis. At the [facility] on March 15, 2017 she had bilateral screening mammography. There was evidence of a previous breast biopsy in the upper outer left breast. BI-RADS Category 2. It was not felt to be any suspicious lesions. An addendum report however suggested that there was a 2.1 x 1.1 cm spiculated nodule in the deep midportion of the left breast. Ultrasound was recommended. On March 21, 2017 a left breast ultrasound was obtained. At the 5 o'clock position +6 cm there is a 1.4 x 1.3 x 1.1 cm ill-defined irregular hypoechoic solid nodule. Adjacent to this there is an additional 1.4 x 1.1 x 0.9 cm hypoechoic solid mass. These 2 suspicious lesions are seen adjacent to each other at the 5 o'clock position left breast. BI-RADS Category 5. Highly suspicious for malignancy. it is this area that the patient points to and notes as the previous known area of nodularity ROS General General: No weight change, appetite, fatigue, colon cancer, breast cancer or weakness HEENT HEENT: No difficulty swallowing, eye injury, eye surgery, swollen glands or hoarseness Endo Endocrine: No thyroid disease, diabetes mellitus, thyroid cancer, Hair loss, heat intolerance or cold intolerance Skin Skin: No rash or changing moles Breast Breast: Yes abnormal mammogram and abnormal US; no left breast lump, right breast lump, nipple discharge, breast pain or breast enlargement Musc Musculoskeletal: No back problems, arthritis, rheumatoid arthritis, gout or joint pain Cardio Cardiovascular: Yes high blood pressure; no murmur, pacemaker, heart disease, atrial fibrillation, heart attack, heart stent, palpitations, shortness of breat with exertion or chest pain Psych Psychiatric: No depression, anxiety or hearing voices Resp Respiratory: No shortness of breath, No sleep apnea, No cough, No COPD, No asthma, No emphysema, No wheezing Gastro Gastrointestinal: No abdominal pain, No nausea or vomiting, No diarrhea, No constipation, No blood in stool, No acid reflux, No hemorrhoids, No ulcers, No gallbladder problem, No black,tarry stools Adrian Hematologic: No blood thinners, No blood disorders, No bleeding, No anemia, No blood clots Neuro Neurologic: No system reviewed and no additional complaints, except as docu, No as per HPI, No abnormal walking, No abnormal hearing, No abnormal movements, No abnormal speech, No behavioral changes, No burning sensations, No confusion, No seizure-like activity, No unsteadiness, No dizziness, No localized weakness, No frequent falls, No headache(s), No lack of coordination, No loss of vision, No memory loss, No numbness, No other visual disturbances, No radiating pain, No restless legs, No sensory deficit, No fainting, No tingling, No tremor(s), No weakness, No other Exam Const General: cooperative, no acute distress Chest Breast Palpation: No nipple discharge Other: Right breast: No focal mass. No nipple discharge. No axillary or clavicular adenopathy Left breast: Well-healed small incision upper outer left breast and outer mid left breast. Focal nodular combine mass lower outer left breast 5 o'clock position quite inferior close to the inframammary fold. Fibrofatty left axilla. No distinct axillary or clavicular adenopathy Resp Auscultation: clear to auscultation bilaterally Cardio Rate: regular rate Rhythm: regular rhythm Heart Sounds: no murmurs GI Palpation: soft, no hepatosplenomegaly Auscultation: normal bowel sounds Skin General: no rashes or lesions noted Neuro General: CN's II-XI intact bilaterally Extrem General: no clubbing, cyanosis or edema Psych Affect: normal affect Office Procedures Breast Biopsy Time Out Consent Signed: Yes Time out performed: Yes Time: 14:00 Time out checklist: patient, procedure, site marked/identified, positioning of patient, supplies available, allergies confirmed, team agrees on procedure Procedure Performed By Procedure performed by: nusrat Breast Biopsy US Guidance Breast Biopsy: Yes Provider Documentation Ultrasound-guided needle core biopsy lower outer left breast Timeout and informed consent was obtained. The patient was taken to procedure room placed on the table. A left shoulder roll was placed. The lower outer left breast was sterilely prepped and draped. This was immediately adjacent to the inframammary fold. Ultrasound was performed identifying the combined areas of significant abnormality. Under ultrasound guidance 1% lidocaine mixed 50-50 with 0.5% Marcaine was used as a local anesthetic. Total of 8 cc was used. A small stab incision was created. A 14-gauge Monopty needle was advanced to prefer depth. Pre-and post fire films were obtained. 2 separate cores were obtained. A small marking clip was left in position. Pressure was held for hemostasis. Steri-Strips Telfa OpSite dressing applied. She was given activity and wound care instructions. The specimen is transferred to formalin for analysis. Progress and prognosis regarding the biopsy are felt to be good Subhash Silverio M.D., F.A.C.S. Assessment AND Plan Plan I am recommending to the patient an ultrasound-guided needle core biopsy lower outer left breast. She is aware of the technique, benefits, risks, alternatives. She has had an opportunity to ask and have questions answered. We will expedite her care by proceeding today. Ultrasound imaging is very suspicious. These 2 areas do occupy some space and are located inferior lower outer left close to the inframammary fold. As noted in the office procedure section we were able to proceed with needle core biopsy today. The specimens are submitted in formalin. She will return to the office in 1 week's time after the holidays. Based upon location and length of time that this is been present I will likely recommend bilateral breast MRI. The patient may additionally benefit from specialty breast referral secondary to the potential need for combination general and plastic surgical intervention. Cc: Dr. Brown Silverio M.D., F.A.C.S. Orders Orders: Medications New: Discontinued: diclofenac submicronized Discontinued Reason: Order Chan35 mg PO BID Phamshilpa Hughes ged 03/29/17 1641 <Electronically signed by Subhash Silverio MD> Date Subhash Silverio MD Cosigner Signature: Date (if applicable) CC: Mindi Callejas Start: 03-21-2017 End: 03-21-2017 Breast Limited Unilateral Comments: See Note; NOTES: [facility] [address] [place] [address] Breast Limited Unilateral MR#: [id number] Acct: [id number] Name: PAT SORTO Rep #: [id number] : 1960 F 57 From: Wil Arora MD PCP: Mindi Dasilva DO Status: REG CLI Study: Breast Limited Unilateral Date of Exam: 03/21/17 Exam# [id number] Ordering Dr: Mindi Dasilva DO STUDY: ULTRASOUND BREAST - LEFT REASON FOR EXAM: Female, 57 years old. Abnormal screening mammogram. Prior left excisional breast biopsy. TECHNIQUE: Axial and longitudinal images of the LEFT breast were performed with a high resolution ultrasound transducer. COMPARISON: Comparison is made with prior mammogram dated March 15, 2017. FINDINGS: LEFT Breast: At the 5:00 position of the breast at 6 cm from the nipple, there is a 1.4 cm x 1.3 cm x 1.1 cm ill-defined irregular hypoechoic solid nodule with posterior acoustical shadowing. Adjacent to this, there is a 1.4 cm x 1.1 cm x 0.9 cm hypoechoic solid mass. A biopsy is recommended. US/Breast Limited Unilateral IMPRESSION: 2 suspicious lesions are seen at the 5:00 position breast a 6 times from nipple. A biopsy recommended. ASSESSMENT CATEGORY: BIRADS Category 5: Highly Suggestive of Malignancy - Appropriate Action Should Be Taken. A letter regarding these results will be sent to the patient by the facility within 30 days. Electronically Signed: Wil Arora MD at 12:40 EST Tel [phone], Service support , CC: Mindi Dasilva DO Script Worker: Signed Mindi Dasilva Work Phone: Start: 03-15-2017 End: 03-15-2017 SCREENING MAMM (CAD), BILAT Comments: See Note; NOTES: [facility] [address] [place] [address] SCREENING MAMM (CAD), BILAT MR#: [id number] Acct: [id number] Name: PAT SORTO Rep #: [id number] : 1960 F 57 From: Wil Arora MD PCP: Mindi Dasilva DO Status: REG CLI Study: SCREENING MAMM (CAD), BILAT Date of Exam: 03/15/17 Exam# [id number] Ordering Dr: Mindi Dasilva DO MAMMOGRAPHY - BILATERAL SCREENING REASON FOR EXAM: Female, 57 years old. Routine annual screening examination. PERTINENT HISTORY: Non-contributory. Prior left excisional breast biopsy. TECHNIQUE: Digital bilateral breast lin (3D mammographic acquisition) in the CC and MLO projections. 2-D mediolateral oblique (MLO) and craniocaudad (CC) views of both breasts were obtained. An exaggerated craniocaudad view of the left breast was obtained as well. CAD: Full Field Digital Mammography with Computer Added Detection was performed. COMPARISON: Comparison is made with prior study dated November 10, 2013 and July 26, 2006. FINDINGS: Breast Composition: The breasts are heterogeneously dense, which may obscure small masses. There are no dominant masses or suspicious calcifications. The patient is status post excisional breast biopsy in the deep upper lateral portion of the left breast. Stable vascular calcification in the retroareolar region of the right breast. No other significant abnormalities are identified. There has been no significant change since the prior study. HPBI/SCREENING MAMM (CAD), BILAT IMPRESSION: Stable bilateral screening mammogram. Yearly follow-up mammogram recommended. (A) ASSESSMENT CATEGORY: BIRADS Category 2: Benign. A letter regarding these results will be sent to the patient by the facility within 30 days. Approximately 10% of breast cancers are not detected by mammography. A normal mammogram should not delay biopsy of a clinically suspicious abnormality. [id number] Electronically Signed: Wil Arora MD at 12:42 EST Tel [phone], Service support , CC: Mindi Dasilva DO Script Worker: Signed Mindi Dasilva Work Phone: Start: 01-28-2017 End: 01-29-2017 Chest without Contrast Comments: See Note; NOTES: [facility] [address] [place] [address] Chest without Contrast MR#: [id number] Acct: [id number] Name: PAT SORTO Rep #: [id number] : 1960 F 56 From: Wil Arora MD PCP: Mindi Dasilva DO Status: REG CLI Study: Chest without Contrast Date of Exam: 01/28/17 Exam# [id number] Ordering Dr: Jarred Schulte MD STUDY: CT CHEST WITHOUT CONTRAST REASON FOR EXAM: Female, 56 years old. Follow-up for lung nodule. RADIATION DOSAGE (If Supplied By Facility): CTDIvol = ( 14.51 ) mGy, DLP = ( 449.22 ) mGycm TECHNIQUE: Transaxial imaging was performed without the administration of intravenous contrast material. Multiplanar coronal and sagittal images were reformatted. Individualized dose optimization techniques were used for this CT. COMPARISON: Comparison is made with prior study dated February 13, 2016. FINDINGS: Stable small lymph nodes are seen in both axillary regions. Minimal increased linear markings at the left lung base suggestive of scarring. Minimal scarring along the pleural aspect of the right lung base. Mild increased linear markings in the superior segment of the left lower lobe. This most likely reflects scarring. There is no demonstrated pleural abnormality. Normal heart and pericardium. There are multiple small lymph nodes within the mediastinum, which are normal in size and morphology most compatible with reactive lymph hyperplasia. Normal hilar regions. Normal unenhanced pulmonary arteries. Normal aorta arch and descending thoracic aorta. There are mild degenerative changes of the thoracic spine. There is no demonstrated abnormality of the visualized upper abdomen. CT/Chest without Contrast IMPRESSION: No pulmonary nodule is seen. Findings suggest mild linear fibrosis at the lung bases slightly worse on the left side as well as the superior segment of the left lower lobe. Electronically Signed: Wil Arora MD at 13:07 EDT Tel [phone], Service support , CC: Jarred Schulte MD; Mindi Dasilva DO Script Worker: Signed Mindi Dasilva Start: 01-24-2017 End: 01-24-2017 Dexa Bone Density Study (HP) Comments: See Note; NOTES: [facility] [address] [place] [address] Dexa Bone Density Study () MR#: [id number] Acct: [id number] Name: PAT SORTO Rep #: [id number] : 1960 F 56 From: Wil Arora MD PCP: Mindi Dasilva DO Status: [facility] Study: Dexa Bone Density Study (HP) Date of Exam: 01/24/17 Exam# [id number] Ordering Dr: Ney Hart MD STUDY: DUAL ENERGY X-RAY ABSORPTIOMETRY / DXA REASON FOR EXAM: Female, 56 years old. The patient is postmenopausal. Loss of height. TECHNIQUE: Bone Mineral Density (BMD) measurements of lumbar spine and bilateral hips were obtained. COMPARISON: Comparison is made with prior study dated November 10, 2013. FINDINGS: Lumbar Spine (L1-L4): g/cm2 (1.298) / T-score (1.0) / Z-score (2.0) Findings are suggestive of normal bone density with a low fracture risk. Left Femur Total: g/cm2 (0.956) / T-score (-0.4) / Z-score (0.4) Left Femoral Neck: g/cm2 (0.958) / T-score (-0.6) / Z-score (0.6) Right Femur Total: g/cm2 (0.965) / T-score (-0.3) / Z-score (0.5) Right Femoral Neck: g/cm2 (0.947) / T-score (-0.7) / Z-score (0.5) The T-Scores on the most recent prior examination were: Lumbar Spine (L1-L4): There has been worsening of bone density since the previous examination. Left Femur Total: which represents a worsening of 11.6%. Right Femur Total: which represents a worsening of 9.7%. HPBD/Dexa Bone Density Study (HP) IMPRESSION: The patient is considered normal as outlined below according to World Mica[place] Organization (WHO) criteria with a low fracture risk. There has been worsening of bone density since the previous examination. Reference Information: The T-score is the number of standard deviations above or below the standard which is normal for young adults at their peak bone mineral density. The World Health Organization (WHO) interprets the T-scores as follows: Above -1 Normal bone density Between -1 and -2.5 Osteopenia Equal to / or below -2.5 Osteoporosis As a practical clinical guideline, osteopenia may be graded as follows: Mild -1 through -1.5 Moderate -1.6 through -2.0 Severe -2.1 through -2.4 The Z-score is the number of standard deviations above or below age-matched controls. A Z-score of less than -1.5 would be considered abnormal. References: 1. NIH Osteoporosis and Related Bone Diseases http://www.osteo.org 2. International Society for Clinical Densitometry http://www.iscd.org 3. National Osteoporosis Foundation http://www.nof.org Electronically Signed: Wil Arora MD at 11:34 EDT Tel [phone], Service support , CC: Mindi Dasilva DO; Ney Hart Script Worker: Signed Mindi Dasilva Start: 03-07-2016 Total knee replacement Mindi Dasilva Comment on above: Patient: PAT SORTO : 1960 (56 /F) Acct Num: [id number] Phys: William De Los Santos DO Unit Num: [id number] Loc: [facility] Specimen: [id number] Received: 03/07/16 - 1222 Spec Type: TOTAL KNEE TISSUES TISSUES: GROSS DESCRIPTION Received is one container designated bone and soft tissue left knee. The specimen consists of multiple fragments of hauser-yellow bone measuring in aggregate 10 x 10 x 3 cm. Also in the specimen container are multiple fragmentsof yellow-white soft tissue measuring in aggregate 8 x 8 x 3 cm. A number of bony fragments contain articular surfaces consistent with tibial plateau and femoral condyle and displaying prominent osteophyte formation, eburnation, and bone erosion. [employer] Elevator Superintendent sections are submitted in two cassettes as follows: 1 - Soft tissue, 2 - bone after decalcification. / SJ:dru 03/07/16 TC:5 CPT: 46112, 81324 HEADER OPERATION: Left total knee arthroplasty PRE-OP DIAGNOSIS: Unilateral primary osteoarthritis, left knee TISSUE SUBMITTED: Bone, left knee MICROSCOPIC DESCRIPTION Slides are reviewed. MICROSCOPIC DIAGNOSIS Bone and soft tissue of left knee, total knee resection: Mild synovial hyperplasia. Severe degenerative joint disease. AM:dru 03/12/16 Signed [facility] 03/12/16 [facility] spital [id number] [facility] [place], [place], [id number] Start: 03-05-2016 End: 03-05-2016 12 lead ECG Comments: See Note; NOTES: [facility] [address] [place] [address] 12 Lead EKG 03/02/16 1031 MR#: [id number] Acct: [id number] Name: PAT KELLEY Rep #: [id number] : 1960 56 From: Serena Callaway MD Attending Dr: Alan Mcqueen Status: REG CLI Ordering Dr: Alan Murry PA-C Date: 03/02/16 Location: LAB Sex: F C Admitted: Test Reason : PRE OP Blood Pressure : / mmHG Vent. Rate : 067 BPM Atrial Rate : 067 BPM P-R Int : 118 ms QRS Dur : 084 ms QT Int : 390 ms P-R-T Axes : 050 017 011 degrees QTc Int : 412 ms Normal sinus rhythm Normal ECG Confirmed by SERENA CALLWAAY MD ([id number]), editor in chief LAURO DECKER ([id number]) on 03/05/2016 9:41:28 AM Referred By: OLGA Confirmed By:SERENA CALLAWAY MD 03/05/16 0941 Date Serena Callaway MD CC: Mindi Dasilva DO Date Dictated: 03/02/16 1031 Date Transcribed: 03/02/16 1031 Script Worker: Signed Mindi Dasilva Start: 02-13-2016 End: 02-13-2016 Chest without Contrast Comments: See Note; NOTES: [facility] [address] [place] [address] Verdana 4d Chest without Contrast MR#: [id number] Acct: [id number] Name: DEBRAPAT SORTOPAT Mackey Rep #: [id number] : 1960 F 56 From: Simone Winchester MD PCP: Mindi Dasilva DO Status: REG CLI Study: Chest without Contrast Date of Exam: 02/13/16 Exam# [id number] Ordering Dr: Jarred Schulte MD STUDY: CT CHEST WITHOUT CONTRAST REASON FOR EXAM: Female, 56 years old. Followup lung nodule RADIATION DOSAGE (If Supplied By Facility): CTDIvol = ( 12.56 ) mGy, DLP = ( 384.06 ) mGycm TECHNIQUE: Transaxial imaging was performed without the administration of intravenous contrast material. Individualized dose optimization techniques were used for this CT. COMPARISON: Prior study of 09/20/15 FINDINGS: There has been interval resolution of a spiculated nodule of the posterior left upper lobe noted on the prior study. There is minimal residual linear fibrosis in the region. The remainder of the lungs are clear. There is no demonstrated pleural abnormality. Normal heart and pericardium. Normal mediastinum. Normal hilar regions. Normal unenhanced pulmonary arteries. Normal aorta arch and descending thoracic aorta. There are mild degenerative changes of the thoracolumbar spine. There is no demonstrated abnormality of the visualized upper abdomen. CT/Chest without Contrast IMPRESSION: Interval resolution of a spiculated nodule in the posterior left upper lobe noted on the prior study. There is minimal residual linear fibrosis in the region. Mild degenerative changes of the thoracolumbar spine. Surgical clips are seen in the left breast. Electronically Signed: Simone Winchester MD at 23:25 EST , Service support [phone], CC: Jarred Schulte MD; Mindi Dasilva DO Script Worker: Signed Mindi Dasilva Start: 09-30-2015 End: 10-04-2015 PET/CT Tumor Base -Thigh Init Comments: See Note; NOTES: [facility] [address] [place] [address] Verdana 4d PET/CT Tumor Base -Thigh Init MR#: [id number] Acct: [id number] Name: PAT KELLEY Rep #: [id number] : 1960 F 55 From: Nicci Shane DO PCP: Mindi Dasilva DO Status: [facility] Study: PET/CT Tumor Base -Thigh Init Date of Exam: 10/03/15 Exam# [id number] Ordering Dr: Felicia Stanley PLUMBING MANAGER-C EXAMINATION: FDG PET CT INDICATIONS: A 55-year-old female with reported history of pulmonary nodularity. COMPARISON EXAMINATION: CT of the chest report dated 09/20/15. INDEX LESION SIZE SUV INTERPRETATION Left mid posterior hemithorax pulmonary parenchyma 0.9 Quantitative criteria for viable neoplasm are not fulfilled, sequential radiologic investigation recommended TECHNIQUE: Following the intravenous administration of 15.2 mCi of F-18 deoxyglucose, multiplanar image acquisitions of the neck, chest, abdomen and pelvis to level of mid thigh, obtained at one hour post radiopharmaceutical administration contemporaneously interpreted with the current CT of the neck, chest, abdomen and pelvis to level of mid thigh, dated 10/03/[address] of the chest report dated 09/20/15 reveal: FINDINGS: 1. Mild increased glucose metabolism is defined in the left mid posterior lung field in the superior segment of the left lower lobe generating a calculated maximum standard uptake value of 0.9. Quantitative criteria for viable neoplasm are not fulfilled. 2. Normal physiologic distribution of the radiopharmaceutical is apparent in the hepatic (3.6) and splenic parenchyma, both renal units, bladder and visualized intestinal tract. There is uniform distribution of the radiopharmaceutical concentration compared on the cerebellar hemispheres and cerebral cortex. Diffuse intestinal tract activity is noted throughout all four quadrants of the abdominal-pelvic retroperitoneum, mesentery consistent with normal physiologic distribution of the radiopharmaceutical. Asymmetric increased glucose concentration is observed in the acromioclavicular compartment of the right shoulder consistent with a component of degenerative arthritis. Prominent glucose concentration is observed in the descending thoracic, as well as abdominal aorta. Pertinent CT findings are as follows. CHEST: There are no additional parenchymal densities-nodules defined in the bilateral hemithorax manifesting quantitatively significant increased glucose metabolism. Bilateral axillary and scattered mediastinal soft tissue is ametabolic. Atherosclerotic calcification is defined in the thoracic aorta without evidence of dilatation, aneurysm formation. ABDOMEN AND PELVIS: Cholelithiasis appears evident. Atherosclerotic calcification is defined in the abdominal aorta without evidence of dilatation, aneurysm formation. Pelvic arterial calcification is observed. Right-left inguinal soft tissue densities are non-glucose avid. SKELETAL: Degenerative changes defined in the cervical, thoracic and lumbar spine demonstrate no evidence for glucose hypermetabolism. IMPRESSION: 1. NEGATIVE EXAMINATION. There is no definitive quantitative scintigraphic evidence of viable neoplasm. 2. Subtle increased glucose concentration observed in the left mid posterior hemithorax pulmonary parenchyma does not fulfill quantitative criteria for viable neoplasm. (Tnog et al, Annals of Internal Medicine, 138:724, 2003). 3. Metabolic and/or anatomic stability may be ensured in the left hemithorax pulmonary parenchymal abnormality with repeat FDG PET study and/or CT of the thorax in three months. (Xiu, Journal of Nuclear Medicine 45:88, P2004. Dali, Seminars in Thoracic and Cardiovascular Surgery 14:292, 2001). 4. Prominent glucose concentration observed in the descending thoracic, as well as abdominal aorta is commensurate with activated leukocytes associated with atherosclerotic plaque formation. (Uvaldo et al, Clinical Nuclear Medicine 29:93, 2004). Electronic Signature Nicci Shane D.O. Electronically Signed: Nicci Shane DO at 21:44 EDT Tel , Service support [phone], CC: Felicia Stanley; Mindi Dasilva DO Script Worker: Signed Mindi Dasilva Start: 09-20-2015 End: 09-20-2015 Chest WITH Contrast Comments: See Note; NOTES: [facility] Imaging Services [address] [place] [address] Verdana 4d Chest WITH Contrast MR#: [id number] Acct: [id number] Name: DEBRAPAT SORTOPAT Key Rep #: [id number] : 1960 F 55 From: Wil Arora MD PCP: Mindi Dasilva DO Status: REG CLI Study: Chest WITH Contrast Date of Exam: 09/20/15 Exam# [id number] Ordering Dr: Jarred Schulte MD STUDY: CT CHEST WITH CONTRAST REASON FOR EXAM: Female, 55 years old. Nodular density in the left upper lobe. RADIATION DOSAGE (If Supplied By Facility): CTDIvol = ( 9.48 ) mGy, DLP = ( 549.92 ) mGycm TECHNIQUE: Transaxial imaging was performed following intravenous administration of 100cc ml of Isovue 300 contrast material. Multiplanar coronal and sagittal images were reformatted. Individualized dose optimization techniques were used for this CT. COMPARISON: None. FINDINGS: There is a 2.5 cm x 1.6 cm x 1.9 cm irregular spiculated nodule in the posterior aspect of the left upper lobe. Correlation with a PET scan is recommended. A biopsy may be indicated. There is no demonstrated pleural abnormality. Normal heart and pericardium. Normal mediastinum. Normal hilar regions. Normal enhanced pulmonary arteries. Normal aorta arch and descending thoracic aorta. There are mild degenerative changes of the thoracic spine. There is no demonstrated abnormality of the visualized upper abdomen. IMPRESSION: 2.5 cm x 1.6 cm x 1.9 cm irregular nodule in the posterior aspect of the left upper lobe as described. Correlation with serum a PET scan and possible biopsy is recommended. Electronically Signed: Wil Arora MD at 8:54 EDT Tel [phone], Service support [phone], CC: Jarred Schulte MD; Mindi Dasilva DO Script Worker: Signed Mindi Dasilva Start: 07-18-2015 End: 07-18-2015 Spmtry w/vc expiratory deion w/wo mxml vol vntj [Preliminary Information] Sensor Calibration Date: 07/26/2014; Sensor SN: [id number]; Pressure: 760; Temperature: 21.7062326357225 [Pre-Bronchodilator] FVC: 2.82272327811809; FEV (0.5 secs): 1.20065318881322; FEV (1.0 sec): 2.32664161827493; FEV (3.0 secs): 1.99352102947851; FEV (6.0 secs): 0; FEV (1.0 sec) / FVC: 83.6536264896069; FEV (3.0 secs) / FVC: 71.4203448064327; FEV (1.0 sec) / FEV (6.0 secs): 0; FEF (25-75%): 2.48053493386513; FEF (75-85%): 0.787699773255873; PEF: 4.5062965709269; FEF (25%): 4.37076031236301; FEF (75%): 1.0411519271829; FEF (200-1200): 3.89688307116945; EXP TIME: 2.5; Best FVC: 2.15558339643909; Best FEV (1.0 sec): 2.16655818680786; V ext.: 0.8705516784343746; FIVC: 2.31259814775372; FIV (0.5 sec): 0.904621770795553; FEV (0.5 secs) / FIV (0.5 secs): 224.20141564902; FIF (50%): 1.3188746906222; FEF (50%) / FIF (50%): 141.097284683320; MVV: 0; MTV: 0; RR: 0; MVV Time: 0; VC: 0; ERV: 0; JUAN: 0; TV: 0; AT: 0; AT%: 0 [Post-Bronchodilator] FVC: 0; FEV (0.5 secs): 0; FEV (1.0 sec): 0; FEV (3.0 secs): 0; FEV (6.0 secs): 0; FEV (1.0 sec) / FVC: 0; FEV (3.0 secs) / FVC: 0; FEV (1.0 sec) / FEV (6.0 secs): 0; FEF (25-75%): 0; FEF (75-85%): 0; PEF: 0; FEF (25%): 0; FEF (75%): 0; FEF (200-1200): 0; EXP TIME: 0; Best FVC: 0; Best FEV (1.0 sec): 0; V ext.: 0; FIVC: 0; FIV (0.5 sec): 0; FEV (0.5 secs) / FIV (0.5 secs): 0; FIF (50%): 0; FEF (50%) / FIF (50%): 0; MVV: 0; MTV: 0; RR: 0; MVV Time: 0; VC: 0; ERV: 0; JUAN: 0; TV: 0; AT: 0; AT%: 0 [Predicted Values] FVC: 0; FEV (0.5 secs): 0; FEV (1.0 sec): 0; FEV (3.0 secs): 0; FEV (6.0 secs): 0; FEV (1.0 sec) / FVC: 0; FEV (3.0 secs) / FVC: 0; FEV (1.0 sec) / FEV (6.0 secs): 0; FEF (25-75%): 0; FEF (75-85%): 0; PEF: 0; FEF (25%): 0; FEF (75%): 0; FEF (200-1200): 0; EXP TIME: 0; Best FVC: 0; Best FEV (1.0 sec): 0; V ext.: 0; FIVC: 0; FIV (0.5 sec): 0; FEV (0.5 secs) / FIV (0.5 secs): 0; FIF (50%): 0; FEF (50%) / FIF (50%): 0; MVV: 0; MTV: 0; RR: 0; MVV Time: 0; VC: 0; ERV: 0; JUAN: 0; TV: 0; AT: 0; AT%: 0 [Spirometry Diagnostic Statements] Date of Test: 07/18/2015 12:40:34; Summary: Unable to perform automatic interpretation because: Predicted FEV1/FVC is not available or valid. Mindi Dasilva Work Phone: Comment on above: mild obstruction - improved from last ti me -- no printed version bc honorio rodrigues not in at tiime and i dindt want to make pt repeat study so i read on computer screenn Start: 07-12-2015 End: 07-13-2015 Ribs Unil 2V No CXR Comments: See Note; NOTES: [facility] Imaging Services [address] [place] [address] Verdana 4d Ribs Unil 2V No CXR MR#: [id number] Acct: [id number] Name: PAT KELLEY Rep #: [id number] : 1960 F 55 From: Wil Arora MD PCP: Mindi Dasilva DO Status: REG CLI Study: Ribs Unil 2V No CXR Date of Exam: 07/12/15 Exam# [id number] Ordering Dr: Mindi Dasilva DO STUDY: X-RAY - UNILATERAL RIBS ( LEFT ) REASON FOR EXAM: Female, 55 years old. Left lateral rib pain following coughing episode. TECHNIQUE: 4 view(s) of the ribs. COMPARISON: None. FINDINGS: Normal visualized ribs without a demonstrated fracture. There is blunting of the left costophrenic angle. Surgical clips are seen overlying the left breast. IMPRESSION: Normal x-ray examination of the ribs. Electronically Signed: Wil Arora MD at 9:58 EDT Tel [phone], Service support [phone], RAD/Ribs Unil 2V No CXR IMPRESSION: Normal x-ray examination of the ribs. Electronically Signed: Wil Arora MD at 9:58 EDT Tel [phone], Service support [phone], CC: Mindi Dasilva DO Script Worker: Signed Mindi Dasilva Work Phone: Start: 07-11-2015 End: 07-11-2015 Spmtry w/vc expiratory deion w/wo mxml vol vntj _ Mindi Dasilva Work Phone: Comment on above: lil obstruction Start: 06-13-2015 End: 06-15-2015 Chest PA and Lateral Comments: See Note; NOTES: [facility] Imaging Services [address] [place] [address] Smith 4d Chest PA and Lateral MR#: [id number] Acct: [id number] Name: PAT KELLEY Rep #: [id number] : 1960 F 55 From: Wil Arora MD PCP: Mindi Dasilva DO Status: REG CLI Study: Chest PA and Lateral Date of Exam: 06/13/15 Exam# [id number] Ordering Dr: Mindi Dasilva DO STUDY: X-RAY CHEST REASON FOR EXAM: Female, 55 years old. Eight-day history of back pain and cough. TECHNIQUE: PA and lateral views of the chest. COMPARISON: None. FINDINGS: There is a 1.9 cm x 1.3 cm nodule in the medial posterior aspect of the left upper lobe. Scattered calcified granulomas. There is no demonstrated pleural abnormality. Normal size heart. Normal mediastinum and gosia. Normal visualized pulmonary arteries. There is atherosclerotic tortuosity of the aortic arch and descending thoracic aorta. There are degenerative changes of the visualized thoracic spine. Normal visualized ribs, clavicles, and shoulders. There is no demonstrated abnormality of the visualized soft tissue structures of the upper abdomen. IMPRESSION: Noncalcified 1.9 cm x 1.3 cm nodule in the left upper lobe. Electronically Signed: Wil Arora MD at 14:21 EST Tel [phone], Service support [phone], RAD/Chest PA and Lateral IMPRESSION: Noncalcified 1.9 cm x 1.3 cm nodule in the left upper lobe. Electronically Signed: Wil Arora MD at 14:21 EST Tel [phone], Service support [phone], CC: Mindi Dasilva DO Script Worker: Signed Mindi Dasilva Work Phone: Start: 06-25-2014 End: 06-25-2014 Emergency Department Summary Comments: See Note; NOTES: [facility] Medical Records Department [address] [place] [address] Emergency Department Summary MR#: [id number] Acct: [id number] Name: PAT SORTO Rep #: [id number] : 1960 54 From: Neeraj Inman MD PCP: Mindi Dasilva DO Status: [facility] ER DATE OF SERVICE: 06/25/2014 CHIEF COMPLAINT: Nosebleed. HISTORY OF PRESENT ILLNESS: The patient is a 54-year-old who presents with approximately 1 hour of right- sided epistaxis that began spontaneously. No trauma. She does take aspirin at home. She does not take any blood thinners otherwise. She denies any recent other associated symptoms. She has no other complaints. She does have a history of hypertension, takes lisinopril. She sees Dr. Dasilva. ALLERGIES: She denies any drug allergies. SOCIAL HISTORY: She denies any alcohol, tobacco or drug use. She lives at home with family. REVIEW OF SYSTEMS: Overall negative. PHYSICAL EXAMINATION: VITAL SIGNS: Initial blood pressure 199/143, temperature 97.6, heart rate 96, respiratory rate 20, 97% on room air, no hypoxia. GENERAL: She is obese. HEENT: Normocephalic, atraumatic. Pupils are equal, round and reactive to light. Extraocular movements are intact. Moist mucous membranes. She has blood clots and active bleeding from the right naris and I see blood going down the posterior pharynx. NECK: Supple otherwise. CARDIOVASCULAR: Regular rate and rhythm without murmur. RESPIRATORY: No distress. Clear and equal to auscultation bilaterally. ABDOMEN: Soft, nontender, nondistended. EXTREMITIES: Nontender without edema. SKIN: Normal color and without rash. NEUROLOGIC: She is alert and oriented. Normal strength, sensation. Normal affect. EMERGENCY DEPARTMENT COURSE: I first attempted to place Afrin-soaked packings in the bilateral nares after having her blood ____ the clots. She continued to have brisk bleeding, no respiratory distress. I then placed an anterior Rapid Rhino pack to the right naris without difficulty with tamponade of the bleeding. It is not coming out of her left naris, it is not going down her posterior pharynx. On re-evaluation at 0220, there is no bleeding, no blood in the posterior pharynx, and she feels improved. I did repeat her blood pressure; it is still elevated at 198/116. I was going to have it checked manually and treated here; however, the patient does not want to wait for this intervention. She wants to go home. I offered to give her an additional dose of her home lisinopril, which she states she did take today and she understands the risks of going home with this blood pressure including stroke. She said she will keep track of her blood pressures at home and follow up with her primary physician tomorrow for re-evaluation. The patient was given prescription for amoxicillin and follow up with Dr. Sen Mahmood at her request. DISPOSITION: Discharge. CONDITION: Stable, improved. IMPRESSION: 1. Epistaxis, resolved with packing. 2. Elevated blood pressure. 3. History of hypertension. MD Hyuen Abel C: Mindi Sánchez MD T: NTS JOB: [id number] 06/25/14 0542 <Electronically signed by Neeraj Inman MD> Date Neeraj Inman MD CC: Mindi Dasilva DO; Sen Mahmood MD Date Dictated: 06/25/14251 Date Transcribed: 06/25/14251 Script Worker: Signed Mindi Dasilva Start: 06-25-2014 End: 06-25-2014 Discharge Instruction Comments: See Note; NOTES: [facility] Medical Records Department [address] [place] [address] Discharge Instruction 06/25/14220 MR#: [id number] Acct: [id number] Name: PAT SORTO Rep #: [id number] : 1960 54 From: Neeraj Inman MD PCP: Mindi Dasilva DO Status: REG ER ED Disposition - Plan for ED Patient: Disposition: Home Chief Complaint: Nosebleed Instructions: Nosebleed Prescriptions: Hydrocodone Bitart/Apap 5-325 [Toledo 5/325] 1 - 2 tablet PO Q4H PRN PRN #12 tablet PRN Reason: Pain Amoxicillin [Amoxil] 500 mg PO Q12H #10 capsule Referrals: Mindi Dasilva DO [Primary Care Provider] - Sen Mahmood MD [STAFF PHYSICIAN] - What to do if you have Problems For any increased pain, shortness of breath, bleeding, nausea or vomiting, chest pain, or any unexpected problems, contact your doctor. Call [facility] ) or report to the closest Emergency Room. Call 911 if necessary. 06/25/14 0224 <Electronically signed by Neeraj Inman MD> Date Neeraj Inman MD Cosigner Signature (If Indicated): Date CC: Mindi Callejas Start: 06-07-2014 End: 06-07-2014 Biopsy/Inj or Needle Placement Comments: See Note; NOTES: [facility] Imaging Services [address] [place] [address] CAT Scan Report MR#: [id number] Acct: [id number] Name: PAT SORTO Rep #: [id number] : 1960 F 54 From: Wil Arora MD PCP: Mindi Dasilva DO Status: REG CLI Study: Biopsy/Inj or Needle Placement Date of Exam: 06/07/14 Exam# [id number] Ordering Dr: Ney Hart MD PROCEDURE: CT GUIDED biopsy of the right lobe of the liver. DATE: June 07, 2014. INDICATION: Female, 54 years old. History of hepatitis. PHYSICIAN: Wil Arora M.D. PROCEDURE: The risks, benefits, and alternatives to the procedure were explained to the patient. The specific risk of hemorrhage requiring further treatment or intervention was detailed and accepted. Follow-up instructions were discussed with the patient as well. Written informed consent was obtained. The patient was brought into the CT suite and placed in the supine position. . An appropriate entry site was identified. The overlying skin was prepped and draped in the usual sterile fashion. 1% lidocaine was administered subcutaneously for local anesthesia. The patient received 2 mg of Versed and 50 mcg of fentanyl intravenously. Conscious sedation was then performed. Under CT guidance, a total of 3 passes were performed 19-gauge core biopsy needle system. The specimens were then placed in the appropriate fluid and transported to the laboratory for analysis. Hemostasis was obtained. The patient tolerated the procedure well without immediate complications. IMPRESSION: Successful CT guided biopsy of the right lobe of the liver, as described above. Electronically Signed: Wil Arora MD at 10:30 EST Tel [phone], Service support [phone], CC: Mindi Dasilva DO; Ney Hart Script Worker: Signed Mindi Dasilva Start: 04-14-2014 End: 04-14-2014 12 lead ECG Comments: See Note; NOTES: [facility] Cardiovascular Services [address] [place] [address] 12 Lead EKG 04/13/14 1412 MR#: [id number] Acct: [id number] Name: PAT SORTO Rep #: [id number] : 1960 54 From: Serena Callaway MD Attending Dr: William De Los Santos DO Status: REG CLI Ordering Dr: William De Los Santos DO Date: 04/13/14 Location: LAB Sex: F C Admitted: Test Reason : PRE-OP Blood Pressure : / mmHG Vent. Rate : 067 BPM Atrial Rate : 067 BPM P-R Int : 110 ms QRS Dur : 080 ms QT Int : 402 ms P-R-T Axes : 059 058 010 degrees QTc Int : 424 ms Sinus rhythm with short SC Low voltage QRS ( LIMB LEADS) Confirmed by SID NARAYAN, SERENA ([id number]), editor in chief TATE BOOTH ([id number]) on 04/14/2014 10:27:14 AM Referred By: ALEM Confirmed By:SERENA CALLAWAY MD 04/14/14 1027 Date Serena Callaway MD CC: Mindi Dasilva DO Date Dictated: 04/13/14 1412 Date Transcribed: 04/13/141411 Script Worker: Signed Mindi Dasilva Start: 11-10-2013 End: 11-10-2013 Bilat Scrn Digital & CAD Comments: See Note; NOTES: [facility] Imaging Services [address] [place] [address] Breast Imaging Report MR#: [id number] Acct: [id number] Name: PAT SORTO Rep #: [id number] : 1960 F 53 From: Wil Arora MD PCP: Mindi Dasilva DO Status: REG CLI Exam# [id number] Ordering Dr: Farhana Alcaraz MAMMOGRAPHY - BILATERAL SCREENING REASON FOR EXAM: Female, 53 years old. Routine annual screening examination. PERTINENT HISTORY: Non-contributory. Prior left excisional biopsy. TECHNIQUE: Digital examination. Mediolateral oblique (MLO) and craniocaudad (CC) views of both breasts were obtained. CAD: CAD was performed on this study. COMPARISON: Comparison is made with prior study dated July 17, 2006. FINDINGS: The breast composition is heterogeneously dense, ranging from 51% to 75% of the total breast volume, which may obscure small masses. Since prior mammogram, the patient has had a excisional biopsy in the upper outer aspect of the left breast. The nodular density has been removed. No new mass lesion is seen. No cluster of microcalcifications present. No other significant abnormalities are identified. IMPRESSION: Status post left excisional biopsy. Yearly follow-up recommended. (A) ASSESSMENT CATEGORY: BIRADS Category 2: Benign finding(s). A letter regarding these results will be sent to the patient by the facility within 30 days. Approximately 10% of breast cancers are not detected by mammography. A normal mammogram should not delay biopsy of a clinically suspicious abnormality. Electronically Signed: Wil Arora MD at 14:53 EDT Tel [phone], Service support [phone], CC: Farhana Alcaraz; Mindi Daislva DO Script Worker: Signed Farhana Alcaraz Work Phone: Start: 11-10-2013 End: 11-10-2013 Dexa Bone Density Study (HP) Comments: See Note; NOTES: [facility] Imaging Services [address] [place] [address] Bone Density Report MR#: [id number] Acct: [id number] Name: PAT SORTO Rep #: [id number] : 1960 F 53 From: Wil Arora MD PCP: Mindi Dasilva DO Status: [facility] Study: Dexa Bone Density Study (HP) Date of Exam: 11/10/13 Exam# [id number] Ordering Dr: Farhana Alcaraz STUDY: DUAL ENERGY X-RAY ABSORPTIOMETRY / DXA REASON FOR EXAM: Female, 53 years old. The patient is postmenopausal. TECHNIQUE: Bone Mineral Density (BMD) measurements of lumbar spine and bilateral hips were obtained. COMPARISON: None. FINDINGS: Lumbar Spine (L1-L4): g/cm2 (1.310) / T-score (1.1) / Z-score (1.9) Findings are suggestive of normal bone density with a low fracture risk. Left Femur Total: g/cm2 (1.082) / T-score (0.6) / Z-score (1.2) Left Femoral Neck: g/cm2 (0.983) / T-score (-0.4) / Z-score (0.6) Right Femur Total: g/cm2 (1.069) / T-score (0.5) / Z-score (1.1) Right Femoral Neck: g/cm2 (1.090) / T-score (0.4) / Z-score (1.4) IMPRESSION: The patient is considered normal as outlined below according to World Michael Organization (WHO) criteria with a low fracture risk. Reference Information: The T-score is the number of standard deviations above or below the standard which is normal for young adults at their peak bone mineral density. The World Health Organization (WHO) interprets the T-scores as follows: Above -1 Normal bone density Between -1 and -2.5 Osteopenia Equal to / or below -2.5 Osteoporosis As a practical clinical guideline, osteopenia may be graded as follows: Mild -1 through -1.5 Moderate -1.6 through -2.0 Severe -2.1 through -2.4 The Z-score is the number of standard deviations above or below age-matched controls. A Z-score of less than -1.5 would be considered abnormal. References: 1. NIH Osteoporosis and Related Bone Diseases http://www.osteo.org 2. International Society for Clinical Densitometry http://www.iscd.org 3. National Osteoporosis Foundation http://www.nof.org Electronically Signed: Wil Arora MD at 16:08 EDT Tel [phone], Service support [phone], CC: Farhana Alcaraz; Mindi Dasilva DO Script Worker: Signed Farhana Burgosleticiakey Work Phone: Start: 11-07-2013 End: 11-08-2013 Abdomen Limited Comments: See Note; NOTES: [facility] Imaging Services [address] [place] [address] Ultrasound Report MR#: [id number] Acct: [id number] Name: PAT SORTO Rep #: [id number] : 1960 F 53 From: Myles Ames PCP: Mindi Dasilva DO Status: REG CLI Study: Abdomen Limited Date of Exam: 11/07/13 Exam# [id number] Ordering Dr: Farhana Alcaraz STUDY: ABDOMINAL ULTRASOUND - RIGHT UPPER QUADRANT REASON FOR VISIT: Female, 53 years old. Elevated liver function tests. TECHNIQUE: Ultrasound evaluation of the right upper quadrant was performed with real-time and static barrios-scale imaging. TECHNICAL QUALITY: Adequate. COMPARISON: None. FINDINGS: Liver: The liver measures 16.9 cm. Within the liver are 2 well-circumscribed echogenic mass is suggestive of hemangiomas in the midportion right lobe measuring 2.4 x 2.3 x 1.9 cm and inferiorly in the posterior segment right lobe measuring 1.8 x 1.4 x 1.5 cm. Questionable fatty liver.. The bile ducts are within normal limits. There is hepatic color flow. The direction of portal flow is hepatopetal. There is no demonstrated mass lesion. Gallbladder: Normal distended gallbladder. The gallbladder wall measures 2 mm. There is a negative sonographic Garcia's sign. There is no pericholecystic fluid. There are multiple echogenic structures within the gallbladder, consistent with multiple gallstones. Common Bile Duct (C.B.D.): The common bile duct measures 4 mm. Pancreas: Normal size of the head, body and tail of the pancreas. There is normal echogenicity of the pancreas. There is no demonstrated pancreatic mass or cyst. Right Kidney: Normal size of the right kidney. The right kidney measures 11.3 x 4.3 x 5.3 cm. Normal renal cortex. The right cortex measures 1.4 cm. There is no demonstrated renal mass or cyst. There is no right hydronephrosis. IMPRESSION: Cholelithiasis. Probable hemangiomas right lobe of the liver. In view of the elevated liver function tests, consider CT or MRI of the abdomen using hemangioma protocol for clarification . Another option is continued followup with ultrasound to assess stability. Possible fatty liver. Electronically Signed: Myles Ames MD at 7:06 EDT Tel [phone] , Service support [phone], CC: Farhana Alcaraz; Mindi Dasilva DO Script Worker: Signed Farhana Alcaraz Work Phone: Plan of Treatment Date Care Activity Detail Author Start: 07-04-2026 Diabetes Screening Diabetes Screening [facility] Start: 06-03-2026 Diabetes Screening Diabetes Screening [facility] Start: 05-01-2026 Diabetes Screening Diabetes Screening [facility] Start: 03-11-2026 Diabetes Screening Diabetes Screening [facility] Start: 03-05-2026 Diabetes Screening Diabetes Screening [facility] Start: 02-07-2026 Diabetes Screening Diabetes Screening [facility] Start: 01-09-2026 Diabetes Screening Diabetes Screening [facility] Start: 12-31-2025 Diabetes Screening Diabetes Screening [facility] Start: 12-20-2025 Diabetes Screening Diabetes Screening [facility] Start: 12-17-2025 DIABETES SCREEN DIABETES SCREEN [facility] Start: 12-17-2025 Diabetes Screening Diabetes Screening [facility] Start: 12-03-2025 DIABETES SCREEN DIABETES SCREEN [facility] Start: 11-15-2025 DIABETES SCREEN DIABETES SCREEN [facility] Start: 11-07-2025 DIABETES SCREEN DIABETES SCREEN [facility] Start: 11-06-2025 DIABETES SCREEN DIABETES SCREEN [facility] Start: 10-31-2025 DIABETES SCREEN DIABETES SCREEN [facility] Start: 10-26-2025 Annual PCP Team Chronic Disease Visit Annual PCP Team Chronic Disease Visit [facility] Start: 10-13-2025 Annual PCP Team Chronic Disease Visit Annual PCP Team Chronic Disease Visit [facility] Start: 09-25-2025 DIABETES SCREEN DIABETES SCREEN [facility] Start: 09-24-2025 DIABETES SCREEN DIABETES SCREEN [facility] Start: 09-22-2025 Annual PCP Team Chronic Disease Visit Annual PCP Team Chronic Disease Visit [facility] Start: 09-22-2025 Hepatitis B surface antibody level LDL Cholesterol [facility] Start: 09-21-2025 DIABETES SCREEN DIABETES SCREEN [facility] Start: 09-20-2025 DIABETES SCREEN DIABETES SCREEN [facility] Start: 09-07-2025 BP Controlled (<130/80) BP Controlled (<130/80) [facility] in Start: 09-06-2025 DIABETES SCREEN DIABETES SCREEN [facility] Start: 07-08-2025 Hepatitis B screening Urine Albumin:Creatinine Ratio [facility] Start: 07-08-2025 Hepatitis B surface antibody level LDL Cholesterol [facility] Start: 07-04-2025 DIABETES SCREEN DIABETES SCREEN [facility] Start: 04-26-2025 End: 04-26-2025 ambulatory [facility] Comment on above: BMP(S)* 2nd Start: 04-24-2025 BP Controlled (<130/80) BP Controlled (<130/80) [facility] in Start: 04-15-2025 End: 04-15-2025 ambulatory 04/15/2025 4:00 PM [facility] Endocrinology [address] [place] [address] Daisy Titus, HULLER OPERATOR.PLATEN GRINDER [address] [place] [address] 6 month f/u Endocrinology Comment on above: 6 month f/u Start: 04-08-2025 End: 07-08-2025 Comprehensive metabolic 2000 panel - Serum or Plasma COMPREHENSIVE METABOLIC PANEL Lab Routine Diabetes mellitus treated with insulin (HCC) Expected: 04/08/2025, Expires: 07/08/[address] [facility] Work Phone: Comment on above: Expected: 04/08/2025, Expires: Start: 04-08-2025 End: 07-08-2025 Hemoglobin A1c in Blood HEMOGLOBIN A1C Lab Routine Diabetes mellitus treated with insulin (HCC) Expected: 04/08/2025, Expires: 07/08/2025 [facility] Comment on above: Expected: 04/08/2025, Expires: Start: 04-08-2025 End: 07-08-2025 LIPID PANEL, NONFASTING LIPID PANEL, NONFASTING Lab Routine Diabetes mellitus treated with insulin (HCC) Expected: 04/08/2025, Expires: 07/08/2025 [facility] Comment on above: Expected: 04/08/2025, Expires: Start: 04-08-2025 End: 07-08-2025 Microalbumin/Creatinine [Mass Ratio] in Urine ALBUMIN/CREATININE RATIO, URINE Lab Routine Diabetes mellitus treated with insulin ([facility]) Expected: 04/08/2025, Expires: 07/08/2025 [facility] Comment on above: Expected: 04/08/2025, Expires: Start: 03-24-2025 Hemoglobin A1c measurement HbA1C [facility] Start: 03-23-2025 End: 03-23-2025 Patient encounter procedure 03/23/2025 10:00 AM EST Office Visit Internal [facility] [place] [address] [place] [address] Jacinta Rivas MD [address] [place] [address] Yearly [facility] [place] Comment on above: Yearly Start: 03-18-2025 Annual PCP Team Chronic Disease Visit Annual PCP Team Chronic Disease Visit [facility] Start: 02-19-2025 DIABETES SCREEN DIABETES SCREEN [facility] Start: 02-08-2025 End: 02-08-2025 ambulatory 02/08/2025 8:50 AM EST Visit (SP) Office Hematology/Oncology [address] [place] [address] Serena Carrasco DO [address] [place] [address] OV PET SCAN Hematology/Oncology Comment on above: OV PET SCAN Start: 02-01-2025 End: 02-01-2025 Patient encounter procedure Mobile PET CT Comment on above: Malignant neoplasm of left breast in fem nicolette, estrogen receptor positive, unspecified site of breast (HCC) [C50.912, Z17.0] Start: 01-18-2025 DIABETES SCREEN DIABETES SCREEN [facility] Start: 01-13-2025 End: 01-13-2025 Patient encounter procedure 01/13/2025 10:00 AM EDT Office Visit Orthopaedics [address] [address] Subhash Avila PA-C [address] [place] [address] 1 year follow up right hip Orthopaedics Comment on above: 1 year follow up right hip Start: 01-07-2025 Hemoglobin A1c measurement HbA1C [facility] Start: 12-22-2024 End: 12-22-2024 Patient encounter procedure 12/22/2024 10:00 AM EDT Office Visit Plastic Surgery [address] [place] [address] Micki Marcelino MD [address] [place] [address] post op Plastic Surgery Comment on above: post op Start: 12-18-2024 End: 12-18-2024 Patient encounter procedure 12/18/2024 10:00 AM EDT Office Visit Cardiology [address] [place] [address] Felicia Armstrong MD [address] [place] [address] Primary hypertension [I10] Cardiology Comment on above: Primary hypertension [I10] Start: 12-17-2024 End: 12-17-2024 Patient encounter procedure 12/17/2024 10:00 AM EDT Office Visit Plastic Surgery [address] [address] Micki Marcelino MD [address] [place], [place] [phone] [facility] Plastic Surgery Comment on above: Reading Start: 12-14-2024 End: 12-14-2024 ambulatory 12/14/2024 11:00 AM EDT Education Endocrinology [address] [place] [address] Giana Phillips, RD [address] [address] Advice for diabetics and kidneys Endocrinology Comment on above: Advice for diabetics and kidneys Start: 12-10-2024 End: 12-10-2024 ambulatory 12/10/2024 12:45 PM EDT OT/PT/Speech Visit [facility] Physical [facility] [address] [place] [address] Milagros Brown, PT lymph [facility] Physical [facility] Comment on above: lymph Start: 12-08-2024 End: 12-08-2024 ambulatory 12/08/2024 2:15 PM EDT OT/PT/Speech Visit [facility] Physical [facility] [address] [place] [address] Noe Jackson, CLIFF [address] [place] [address] lymph [facility] [place] Comment on above: lymph Start: 12-07-2024 Influenza vaccination [facility] Start: 12-06-2024 Subsequent hospital visit by physician 12/06/2024 Hospital Encounter Surgery [facility] [address] [place] [address] Micki Marcelino MD [address] [place], [place] [id number] Lymphedema [I89.0] Surgery Center Comment on above: Lymphedema [I89.0] Start: 11-22-2024 Subsequent hospital visit by physician 11/22/2024 Hospital Encounter Surgery Center [address] [place] [address] Micki Marcelino MD [address] [place] [address] Lymphedema [I89.0] Surgery Center Comment on above: Lymphedema [I89.0] Start: 11-20-2024 Glaucoma screening Dilated Retinal Exam [facility] Start: 11-20-2024 End: 11-20-2024 ambulatory 11/20/2024 10:15 AM EDT Results Only Sharad Ellsworthwn [facility] [address] [place] [address] Sharad El Dorado [facility] Start: 11-18-2024 End: 11-18-2024 ambulatory 11/18/2024 2:15 PM EDT OT/PT[facility] [address] [address] Noe Jackson, BACK WEDGER [address] [place] [address] lymph [facility] [place] Comment on above: lymph Start: 11-17-2024 End: 11-17-2024 Patient encounter procedure 11/17/2024 1:00 PM EDT Office Visit Kidney Medicine [facility] [address] [place] [address] [place] [address] [place] [address] abnormal kidney labs [facility] Comment on above: abnormal kidney labs Start: 11-16-2024 End: 11-16-2024 ambulatory 11/16/2024 9:00 AM EDT OT/PT/Speech Visit [facility] [place] [address] [place] [address] Noe Jackson, BACK WEDGER [address] [place] [address] lymph [facility] [place] Comment on above: lymph Start: 11-13-2024 End: 11-13-2024 Patient encounter procedure 11/13/2024 11:00 AM EDT [facility] [address] [address] Tatianna Crook, [facility] [address] [place] [address] DM f/up [facility] Comment on above: DM f/up Start: 11-10-2024 End: 11-10-2024 Patient encounter procedure 11/10/2024 2:20 PM EDT Office Visit Plastic Surgery [address] [address] Mino Beard APRN.PLATEN GRINDER [address] [address] ICG/Scan Plastic Surgery Comment on above: ICG/Scan Start: 11-10-2024 BP Controlled (<130/80) BP Controlled (<130/80) [facility] in Start: 11-10-2024 Hepatitis B surface antibody level LDL Cholesterol [facility] Start: 11-09-2024 End: 11-09-2024 ambulatory 11/09/2024 2:15 PM EDT OT/PT/Speech Visit [facility] Physical [address] [address] Milagros Brown, PT Progress summary [facility] [place] Comment on above: Progress summary Start: 11-09-2024 End: 11-09-2024 ambulatory Hematology/Oncology Comment on above: Q6MO ZOMETA BMP(S)* Start: 11-06-2024 End: 11-06-2024 ambulatory 11/06/2024 9:45 AM EDT OT/PT/Speech Visit [facility] Physical [facility] [address] [place] [address] Noe Jackson, CLIFF [address] [place] [address] Lymphedema [facility] [place] Comment on above: Lymphedema Start: 11-04-2024 End: 11-04-2024 ambulatory 11/04/2024 10:30 AM EDT OT/PT/Speech Visit [facility] [place] [address] [place] [address] RobbyNoe cheatham, BACK WEDGER [address] [place] [address] Lymphedema [facility] [place] Comment on above: Lymphedema Start: 10-30-2024 End: 10-30-2024 ambulatory Hematology/Oncology Comment on above: 3MO OV* Lymphedema 3MO OV Start: 10-28-2024 End: 10-28-2024 ambulatory 10/28/2024 3:45 PM EDT OT/PT/Speech Visit [facility] Physical [address] [place] [address] Noe Jackson, BACK WEDGER [address] [place] [address] Lymphedema [facility] Physical [facility] Comment on above: Lymphedema Start: 10-27-2024 End: 10-27-2024 [facility] Comment on above: CQMO BC/CMP QMO CBC/CMP(S) Start: 10-26-2024 End: 10-26-2024 ambulatory 10/26/2024 3:00 PM EDT [facility] Endocrinology [address] [place], [place] [phone] Giana Phillips RD [address] [id number] Diabetes mellitus treated with insulin (HCC) [E11.9, Z79.4] Endocrinology Comment on above: Diabetes mellitus treated with insulin ( HCC) [E11.9, Z79.4] Start: 10-26-2024 End: 10-26-2024 Patient encounter procedure 10/26/2024 2:20 PM EDT Office Visit Internal Medicine [place] [address] [place], [place] [phone] Lisbet Pizano APRN.PLATEN GRINDER [address] [place] [address] 10 day follow up Internal Medicine [facility] Comment on above: 10 day follow up Start: 10-26-2024 End: 10-26-2024 Patient encounter procedure Mobile PET CT Comment on above: Dx: Malignant neoplasm of left breast in female, estrogen receptor positive, unspecified site of breast (HCC) [C50.912, Z17.0]; 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) [C50.912, C79.2]; 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] Start: 10-22-2024 End: 10-22-2024 ambulatory 10/22/2024 2:15 PM EDT OT/PT/Speech Visit [facility] [place] [address] [place], [place] [phone] Noe Jackson, BACK WEDGER [address] [place], [place] [phone] Lymphedema [facility] Physical [facility] Comment on above: Lymphedema Start: 10-22-2024 Annual PCP Team Chronic Disease Visit Annual PCP Team Chronic Disease Visit [facility] Start: 10-22-2024 BP Controlled (<130/80) BP Controlled (<130/80) [facility] Start: 10-21-2024 End: 10-21-2024 ambulatory 10/21/2024 3:45 PM EDT OT/PT/Speech Visit [facility] Physical Therapy [address] [address] Noe Jackson, BACK WEDGER [address] [place] [address] Lymphedema [facility] [place] Comment on above: Lymphedema Start: 10-15-2024 End: 10-15-2024 Patient encounter procedure 10/15/2024 1:20 PM EDT Office Visit Plastic Surgery [address] [address] Mino Beard, HULLER OPERATOR.[facility] [address] [address] follow up Plastic Surgery Comment on above: follow up Start: 10-15-2024 End: 10-15-2024 ambulatory 10/15/2024 10:30 AM EDT OT/PT/Speech Visit [facility] [place] [address] [place] [address] Noe Jackson, BACK WEDGER [address] [place] [address] Lymphedema [facility] [place] Comment on above: Lymphedema Start: 10-14-2024 End: 10-14-2024 Patient encounter procedure 10/14/2024 11:45 AM EDT Office Visit Endocrinology [address] [place] [address] Daisy Titus, HULLER OPERATOR.PLATEN GRINDER [address] [place] [address] 6 month f/u Endocrinology Comment on above: 6 month f/u Start: 10-13-2024 End: 10-13-2024 ambulatory 10/13/2024 9:45 AM EDT OT/PT/Speech Visit [facility] [place] [address] [place] [address] Noe Jackson, BACK WEDGER [address] [place] [address] Lymphedema [facility] [place] Comment on above: Lymphedema Start: 10-11-2024 Subsequent hospital visit by physician 10/11/2024 Hospital Encounter Surgery Center [address] [address] Micki Marcelino MD [address] [place], [place] [phone] Lymphedema [I89.0] Surgery Center Comment on above: Lymphedema [I89.0] Start: 10-09-2024 End: 01-08-2025 Urinalysis complete panel - Urine URINALYSIS (WITH MICROSCOPIC) WITH CULTURE IF INDICATED Lab Routine Renal insufficiency Urinary tract infection with hematuria, site unspecified Expected: 10/09/2024 (Approximate), Expires: 01/08/2025 [facility] Comment on above: Expected: 10/09/2024 (Approximate), Expi res: 01/08/2025 Start: 10-07-2024 End: 10-07-2024 Patient encounter procedure 10/07/2024 3:30 PM EDT [facility] Pharm Med [facility] [address] [phone] [facility] [address] [place] [address] DM f/up Pharm [facility] Comment on above: DM f/up Start: 10-07-2024 End: 10-07-2024 ambulatory 10/07/2024 1:45 PM EDT Results Only [facility] [address] [place] [address] [facility] Start: 10-07-2024 End: 10-07-2024 ambulatory 10/07/2024 10:15 AM EDT OT/PT/Speech Visit [facility] Physical [facility] [address] [place] [address] [place] [address] Milagros Brown, PT Lymphedema [facility] [place] Comment on above: Lymphedema Start: 10-06-2024 End: 01-05-2025 Comprehensive metabolic 2000 panel - Serum or Plasma COMPREHENSIVE METABOLIC PANEL Lab Routine Diabetes mellitus treated with insulin (HCC) Expected: 10/06/2024, Expires: 01/05/[address] [facility] Work Phone: Comment on above: Expected: 10/06/2024, Expires: Start: 10-06-2024 End: 01-05-2025 Hemoglobin A1c in Blood HEMOGLOBIN A1C Lab Routine Diabetes mellitus treated with insulin (HCC) Expected: 10/06/2024, Expires: 01/05/2025 [facility] Comment on above: Expected: 10/06/2024, Expires: Start: 10-06-2024 End: 01-05-2025 LIPID PANEL, NONFASTING LIPID PANEL, NONFASTING Lab Routine Diabetes mellitus treated with insulin (HCC) Expected: 10/06/2024, Expires: 01/05/2025 [facility] Comment on above: Expected: 10/06/2024, Expires: Start: 10-06-2024 End: 01-05-2025 Microalbumin/Creatinine [Mass Ratio] in Urine ALBUMIN/CREATININE RATIO, URINE Lab Routine Diabetes mellitus treated with insulin (HCC) Expected: 10/06/2024, Expires: 01/05/2025 [facility] Comment on above: Expected: 10/06/2024, Expires: Start: 09-29-2024 End: 09-29-2024 ambulatory [facility] Comment on above: CQMO BC/CMP QMO CBC/CMP(S) Start: 09-25-2024 End: 12-25-2024 Comprehensive metabolic 2000 panel - Serum or Plasma COMPREHENSIVE METABOLIC PANEL Lab Routine Renal insufficiency Urinary tract infection with hematuria, site unspecified Expected: 09/25/2024, Expires: 12/25/[address] [facility] Work Phone: Comment on above: Expected: 09/25/2024, Expires: Start: 09-24-2024 End: 09-24-2024 ambulatory 09/24/2024 9:45 AM EDT OT/PT/Speech Visit [facility] Physical [facility] [address] [place] [address] Noe Jackson, BACK WEDGER [address] [place] [address] Lymphedema [facility] Physical [facility] Comment on above: Lymphedema Start: 09-22-2024 End: 09-22-2024 ambulatory 09/22/2024 10:30 AM EDT OT/PT/Speech Visit [facility] Physical [address] [place] [address] Renetta Noe, BACK WEDGER [address] [place] [address] Lymphedema [facility] Physical [facility] Comment on above: Lymphedema Start: 09-16-2024 Hemoglobin A1c measurement HbA1C [facility] Start: 09-11-2024 End: 09-11-2024 ambulatory 09/11/2024 9:00 AM EDT OT/PT/Speech Visit [facility] Physical [facility] [address] [place] [address] Noe Jackson, BACK WEDGER [address] [place] [address] Lymphedema [facility] Physical [facility] Comment on above: Lymphedema Start: 09-08-2024 End: 09-08-2024 Patient encounter procedure 09/08/2024 11:00 AM EDT [facility] [address] [phone] [facility] [address] [place] [address] DM f/up [facility] Comment on above: DM f/up Start: 09-03-2024 End: 09-03-2024 Patient encounter procedure 09/03/2024 1:00 PM EDT Office Visit Plastic Surgery [address] [address] Micki Marcelino MD [address] [place] [address] post op Plastic Surgery Comment on above: post op Start: 09-01-2024 End: 09-01-2024 ambulatory Sharad Navarro [facility] Comment on above: CQMO BC/CMP QMO CBC/CMP(S) Start: 08-27-2024 End: 08-27-2024 ambulatory 08/27/2024 11:00 AM EDT OT/PT/Speech Visit [facility] [place] [address] [place] [address] Milagros Brown, PT History of breast cancer [Z85.3] [facility] [place] Comment on above: History of breast cancer [Z85.3] Start: 08-11-2024 End: 08-11-2024 Patient encounter procedure 08/11/2024 11:00 AM EDT [facility] [address] [phone] [facility] [address] [place] [address] DM f/up Pharm Med [facility] Comment on above: DM f/up Start: 08-07-2024 Hepatitis B surface antibody level LDL Cholesterol [facility] Start: 08-04-2024 End: 08-04-2024 ambulatory 08/04/2024 11:00 AM EDT Results Only Sharad El [place]ado [facility] [address] [place] [address] CQMO BC/CMP [facility] Comment on above: CQMO BC/CMP Start: 08-03-2024 End: 08-03-2024 Patient encounter procedure 08/03/2024 10:20 AM EDT Office Visit Plastic Surgery [address] [place] [address] Micki Butler APRN.PLATEN GRINDER [address] [place] [address] Seroma drainage Plastic Surgery Comment on above: Seroma drainage Start: 08-02-2024 DIABETES SCREEN DIABETES SCREEN [facility] Start: 07-15-2024 Annual PCP Team Chronic Disease Visit Annual PCP Team Chronic Disease Visit [facility] Start: 07-15-2024 End: 07-15-2024 Patient encounter procedure 07/15/2024 1:00 PM EDT Office Visit [facility] [address] [address] Micki Butler APRN.PLATEN GRINDER [address] [place] [address] post op [facility] Comment on above: post op Start: 07-14-2024 BP Controlled (<130/80) BP Controlled (<130/80) [facility] Start: 07-14-2024 End: 07-14-2024 Patient encounter procedure 07/14/2024 11:00 AM EDT [facility] Pharm [facility] [address] [phone] [facility] [address] [place], [place] [id number] DM f/up Pharm [facility] Comment on above: DM f/up Start: 07-09-2024 End: 07-09-2024 ambulatory [facility] Comment on above: CBC/CMP(S)* 3MO OV /LABS CBC/CMP (S)* Start: 07-08-2024 End: 07-08-2024 Patient encounter procedure 07/08/2024 11:30 AM EDT Appointment Radiology [address] [address] Thyroid nodule [E04.1] Radiology Comment on above: Thyroid nodule [E04.1] Start: 07-08-2024 End: 07-08-2024 ambulatory 07/08/2024 11:15 AM EDT Results Only [facility] [address] [place] [address] CBC/CMP(S)* [facility] Comment on above: CBC/CMP(S)* Start: 07-07-2024 End: 10-06-2024 CBC W Auto Differential panel - Blood COMPLETE BLOOD COUNT AND DIFFERENTIAL Lab Routine 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) Expected: 07/07/2024, Expires: 10/06/[address] [facility] Work Phone: Comment on above: Expected: 07/07/2024, Expires: Start: 07-07-2024 End: 10-06-2024 Comprehensive metabolic 2000 panel - Serum or Plasma [facility] Work Phone: Comment on above: Expected: 07/07/2024, Expires: Start: 07-07-2024 End: 10-06-2024 Hemoglobin A1c in Blood HEMOGLOBIN A1C Lab Routine Poorly control type 2 diabetes mellitus (HCC) Expected: 07/07/2024, Expires: 10/06/2024 [facility] Comment on above: Expected: 07/07/2024, Expires: Start: 07-07-2024 End: 10-06-2024 LIPID PANEL, NONFASTING LIPID PANEL, NONFASTING Lab Routine Poorly control type 2 diabetes mellitus (HCC) Expected: 07/07/2024, Expires: 10/06/2024 [facility] Comment on above: Expected: 07/07/2024, Expires: Start: 07-07-2024 End: 10-06-2024 Microalbumin/Creatinine [Mass Ratio] in Urine ALBUMIN/CREATININE RATIO, URINE Lab Routine Poorly control type 2 diabetes mellitus (HCC) Expected: 07/07/2024, Expires: 10/06/2024 [facility] Comment on above: Expected: 07/07/2024, Expires: Start: 07-06-2024 End: 07-06-2024 Patient encounter procedure 07/06/2024 10:20 AM EDT Office Visit Plastic Surgery [address] [place] [address] Micki Butler APRN.PLATEN GRINDER [address] [facility] [address] post op Plastic Surgery Comment on above: post op Start: 06-30-2024 End: 06-30-2024 Patient encounter procedure Mobile PET CT Comment on above: Malignant neoplasm of left breast in fem nicolette, estrogen receptor positive, unspecified site of breast (HCC) [C50.912, Z17.0] Start: 06-25-2024 End: 06-25-2024 Patient encounter procedure 06/25/2024 1:00 PM EDT Office Visit Plastic Surgery [address] [address] Micki Marcelino MD [address] [place] [address] drain removal Plastic Surgery Comment on above: drain removal Start: 06-16-2024 End: 06-16-2024 Patient encounter procedure 06/16/2024 10:30 AM EDT [facility] [address] [phone] Tatianna Crook [facility] [address] [place] [address] DM f/up [facility] Comment on above: DM f/up Start: 06-11-2024 End: 06-11-2024 Admission to same day surgery center 06/11/2024 10:20 AM EST [facility] Plastic Surgery [address] [address] Mino Beard APRN.[facility] [address] [address] post op - virtual Plastic Surgery Comment on above: post op - virtual Start: 06-05-2024 End: 06-05-2024 Patient encounter procedure 06/05/2024 8:40 AM EST Office Visit Internal Medicine [place] [address] [place] [address] Cathy Burr APRN.FLOORING MACHINE FEEDER [address] [place], [place] [phone] follow up Internal Medicine [place] Comment on above: follow up Start: 06-04-2024 End: 06-04-2024 Patient encounter procedure Internal Medicine [place] Comment on above: follow up drain removal Start: 06-03-2024 BP Controlled (<130/80) BP Controlled (<130/80) [facility] Start: 05-29-2024 End: 05-29-2024 Patient encounter procedure 05/29/2024 10:40 AM EST Office Visit Plastic Surgery [address] [place] [address] Mino Beard APRN.PLATEN GRINDER [address] [place] [address] drain removal Plastic Surgery Comment on above: drain removal Start: 05-27-2024 End: 05-27-2024 Patient encounter procedure Breast Center Comment on above: post op post op Start: 05-26-2024 End: 08-25-2024 Basic metabolic 2000 panel - Serum or Plasma BASIC METABOLIC PANEL Lab Routine Palpitations Expected: 05/26/2024, Expires: 08/25/[address] [facility] Work Phone: Comment on above: Expected: 05/26/2024, Expires: Start: 05-26-2024 End: 08-25-2024 Thyrotropin [Units/volume] in Serum or Plasma THYROID STIMULATING HORMONE Lab Routine Palpitations Expected: 05/26/2024, Expires: 08/25/2024 [facility] Comment on above: Expected: 05/26/2024, Expires: Start: 05-26-2024 End: 05-26-2024 Patient encounter procedure 05/26/2024 9:40 AM EST Office Visit Internal Medicine [place] [address] [place] [address] Cathy Burr APRN.FLOORING MACHINE FEEDER [address] [place] [address] [facility] ER F/U 05/21/2024; Palpitations [facility] [place] Comment on above: [facility] ER F/U 05/21/2024; Palpitations Start: 05-25-2024 End: 05-25-2024 Patient encounter procedure 05/25/2024 2:00 PM EST Office Visit Plastic Surgery [address] [address] Mino Beard APRN.PLATEN GRINDER [address] [place] [phone] post op surg 05/18 Plastic Surgery Comment on above: post op surg 05/18 Start: 05-18-2024 End: 05-18-2024 Mastectomy partial MASTECTOMY PARTIAL Malignant neoplasm of lower-outer quadrant of left breast of female, estrogen receptor positive (HCC) 05/18/2024 12:34 PM EST [facility] Start: 05-18-2024 End: 05-18-2024 Admission to same day surgery center Ambulatory Surgery Comment on above: MASTECTOMY SIMPLE REMOVAL IMPLANT [facility] Start: 05-18-2024 End: 05-18-2024 Mastectomy simple complete [facility] Start: 05-18-2024 End: 05-18-2024 Periprosthetic capsulectomy breast [facility] Start: 05-18-2024 End: 05-18-2024 Removal intact mammary implant [facility] Start: 05-18-2024 Subsequent hospital visit by physician Ambulatory Surgery Comment on above: Malignant neoplasm of lower-outer quadra nt of left breast of female, estrogen receptor positive (HCC) [C50.512, Z17.0] Start: 05-13-2024 End: 05-13-2024 ambulatory 05/13/2024 8:45 AM EST OT/PT/Speech Visit [facility] Physical Therapy [address] [place] [address] Bobbi Vanegas, PT Priority: Routine [facility] Comment on above: Priority: Routine Start: 05-12-2024 End: 05-12-2024 Patient encounter procedure 05/12/2024 9:40 AM EST Office Visit Internal Medicine [place] [address] [place] [address] Cathy Burr APRN.FLOORING MACHINE FEEDER [address] [place] [address] follow up [facility] Medicine [place] Comment on above: follow up Start: 05-11-2024 End: 05-11-2024 Nursing evaluation of patient and report 05/11/2024 9:30 AM EST Nurse Visit [facility] [address] [place] [address] Bianca Addison, FE PRE OP TEACHING W/ BIANCA [facility] Comment on above: PRE OP TEACHING W/ BIANCA Start: 05-08-2024 Annual PCP Team Chronic Disease Visit Annual PCP Team Chronic Disease Visit [facility] Start: 05-08-2024 BP Controlled (<130/80) BP Controlled (<130/80) [facility] Start: 05-07-2024 End: 05-07-2024 Patient encounter procedure Plastic Surgery Comment on above: POST OP SURG 05/01 cough congestion and check BP Start: 05-06-2024 End: 05-06-2024 ambulatory 05/06/2024 9:45 AM EST OT/PT/Speech Visit [facility] [address] [place] [address] Bobbi Vanegas PT Priority: Routine [facility] Comment on above: Priority: Routine Start: 05-05-2024 End: 05-05-2024 Patient encounter procedure 05/05/2024 10:30 AM EST [facility] [address] [phone] [facility] [address] [place] [address] DM f/up [facility] Comment on above: DM f/up Start: 05-04-2024 End: 05-04-2024 Anesthesia consultation 05/04/2024 11:00 AM EST PAT Pre Anesthesia [address] [place] [address] VIRTUAL PACC Pre Anesthesia Comment on above: VIRT[facility] PACC Start: 04-28-2024 End: 07-28-2024 INFLUENZA A&B MOLECULAR (POC) INFLUENZA A&B MOLECULAR (POC) Microbiology Routine Acute cough Expected: 04/28/2024, Expires: 07/28/[address] [facility] Work Phone: Comment on above: Expected: 04/28/2024, Expires: Start: 04-24-2024 End: 04-24-2024 ambulatory 04/24/2024 11:00 AM EST OT/PT/Speech Visit [facility] Physical Therapy [address] [place] [address] Bobbi Vanegas, PT Malignant neoplasm of lower-outer quadrant of left breast of female, estrogen receptor positive (HCC) [C50.512, Z17.0] [facility] Comment on above: Malignant neoplasm of lower-outer quadra nt of left breast of female, estrogen receptor positive (HCC) [C50.512, Z17.0] Start: 04-15-2024 End: 04-15-2024 Patient encounter procedure 04/15/2024 12:15 PM EST Office Visit Endocrinology [address] [place] [address] Daisy Titus APRN.PLATEN GRINDER [address] [place] [address] 2 MTH F/U Endocrinology Comment on above: 2 MTH F/U Start: 04-13-2024 End: 04-13-2024 ambulatory 04/13/2024 3:00 PM EST Infusion Center Hematology/Oncology [address] [place] [address] Q6MO ZOMETA /MDCR Hematology/Oncology Comment on above: Q6MO ZOMETA /MDCR Start: 04-13-2024 End: 04-13-2024 Patient encounter procedure 04/13/2024 10:00 AM EST Appointment [facility] [address] [place] [address] Malignant neoplasm of left breast in female, estrogen receptor positive, unspecified site of breast (HCC) [C50.912, Z17.0] [facility] Comment on above: Malignant neoplasm of left breast in fem nicolette, estrogen receptor positive, unspecified site of breast (HCC) [C50.912, Z17.0] Start: 04-10-2024 End: 04-10-2024 ambulatory [facility] Comment on above: CBC/CMP(S)* 3MO OV /LABS CBC/CMP * Start: 04-08-2024 Advance Directive Discussion Advance Directive Discussion [facility] Start: 04-06-2024 End: 04-06-2024 Patient encounter procedure Mobile PET CT Comment on above: Malignant neoplasm of overlapping sites of left breast in female, estrogen receptor positive (HCC) [C50.812, Z17.0] Start: 03-25-2024 End: 03-25-2024 Patient encounter procedure Plastic Surgery Comment on above: consult- tissue implant removal per shanna jarrell NEW - STAFF MESSAGE IMAGING - STAFF MESS AGE Start: 03-18-2024 End: 03-18-2024 Patient encounter procedure 03/18/2024 1:00 PM EST Office Visit Internal Medicine [place] [address] [place], [place] [phone] Jacinta Rivas MD [address] [place], [place] [address] Wellness [facility] [place] Comment on above: Wellness Start: 03-11-2024 Annual PCP Team Chronic Disease Visit Annual PCP Team Chronic Disease Visit [facility] Start: 02-26-2024 End: 02-26-2024 Patient encounter procedure Breast Center Comment on above: REGROUP - STAFF MESSAGE CONSULTATION REMOVE IMPLANTS - STAFF MESSAGE REGROUP - STAFF [facility] Imaging per Delonte penny Start: 02-25-2024 End: 02-25-2024 Patient encounter procedure 02/25/2024 1:00 PM EST [facility] [address] [phone] [facility] [address] [place] [address] DM f/up [facility] Comment on above: DM f/up Start: 02-18-2024 End: 02-18-2024 Patient encounter procedure 02/18/2024 9:40 AM EST [facility]ment [facility] [address] [place], [place] [phone] BREAST MRI RADIO [facility] Comment on above: BREAST MRI Start: 02-16-2024 DIABETES SCREEN DIABETES SCREEN [facility] Start: 02-07-2024 Advance Directive Discussion Advance Directive Discussion [facility] Start: 02-07-2024 Screening for osteoporosis Bone Density Screening [facility] Start: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 Work Phone: Start: 02-07-2004 COLOGUARD (FIT-DNA) COLOGUARD (FIT-DNA) [facility] Start: 02-07-2004 Colonoscopy COLONOSCOPY [facility] Start: 02-07-2004 COLORECTAL CANCER SCREENING COLORECTAL CANCER SCREENING [facility] Start: 02-07-[address] COLONOGRAPHY [facility] Start: 02-07-2004 FECAL OCCULT BLOOD FECAL OCCULT BLOOD [facility] Start: 02-07-2004 Screening for malignant neoplasm of colon [facility] Start: 02-07-2004 SIGMOIDOSCOPY SIGMOIDOSCOPY [facility] Start: 1978 Hepatitis A Vaccine (1 of 2 - Risk 2-dose series) Hepatitis A Vaccine (1 of 2 - Risk 2-dose series) [facility] Start: 1978 HEPATITIS B (1 of 3 - Risk 3-dose series) HEPATITIS B (1 of 3 - Risk 3-dose series) [facility] Start: 1978 Shingrix Vaccine (1 of 2) Shingrix Vaccine (1 of 2) [facility] Start: 1978 Urine microalbumin profile [facility] Start: 1977 Anxiety Screening Anxiety Screening [facility] Start: 1977 BP CONTROLLED (<130/80) BP CONTROLLED (<130/80) [facility] Start: 1977 Depression Screening Depression Screening [facility] Start: 1977 HIV SCREENING HIV SCREENING [facility] Start: 1969 Diabetic foot examination Diabetic Foot Exam [facility] Start: 1969 Glaucoma screening Dilated Retinal Exam [facility] Start: 1969 Hepatitis B screening Urine Albumin:Creatinine Ratio [facility] Start: 1965 PNEUMOCOCCAL (1 - PCV) PNEUMOCOCCAL (1 - PCV) [facility] ic Start: 02-07-1960 HEPATITIS A (1 of 2 - Risk 2-dose series) HEPATITIS A (1 of 2 - Risk 2-dose series) [facility] Bacteria identified in Urine by Culture URINE CULTURE Microbiology Routine Frequent urination Ordered: 02/05/[address] [facility] Work Phone: Comment on above: Ordered: 02/05/2022 Bacteria identified in Urine by Culture BACTERIAL CULTURE, URINE Microbiology Routine UTI symptoms 09/07/2024 2:30 PM EDT [facility] Work Phone: Bacteria identified in Urine by Culture BACTERIAL CULTURE, URINE Microbiology Routine Urinary frequency Renal insufficiency 09/22/2024 2:51 PM EDT [facility] Work Phone: Bacteria identified in Urine by Culture BACTERIAL CULTURE, URINE Microbiology Routine Urinary tract infection with hematuria, site unspecified 10/26/2024 3:17 PM EDT [facility] Work Phone: Bacteria identified in Wound by Culture BACTERIAL CULTURE AND GRAM STAIN, ABSCESS AND WOUND (AEROBIC CULTURE) Microbiology Routine Seroma of breast 06/25/2024 1:52 PM T [facility] Work Phone: BREAST MARKERS BREAST MARKERS L ab Routine Malignant neoplasm of lower-outer quadrant of left breast of female, estrogen receptor positive (HCC) 07/19/2022 10:01 AM EDT 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 Work Phone: Comment on above: Every other week for 26 Occurrences star ting 09/05/2022 until 09/05/2023 End: 11-28-2023 CBC W Auto Differential panel - Blood CBC + DIFF Lab STAT 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) Every other week for 30 Occurrences starting 11/28/2022 until 11/28/[address] [facility] Work Phone: Comment on above: Every other week for 30 Occurrences amy kaur 11/28/2022 until 11/28/2023 End: 09-05-2023 Comprehensive metabolic 2000 panel - Serum or Plasma COMP METABOLIC PANEL Lab STAT Malignant neoplasm of lower-outer quadrant of left breast of female, estrogen receptor positive (HCC) 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) Every other week for 26 Occurrences starting 09/05/2022 until 09/05/[address] [facility] Work Phone: Comment on above: Every other week for 26 Occurrences amy kaur 09/05/2022 until 09/05/2023 End: 11-28-2023 Comprehensive metabolic 2000 panel - Serum or Plasma COMP METABOLIC PANEL Lab STAT 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) Every other week for 30 Occurrences starting 11/28/2022 until 11/28/[address] [facility] Work Phone: Comment on above: Every other week for 30 Occurrences amy kaur 11/28/2022 until 11/28/2023 CT angiography of coronary arteries [facility] CYSTATIN C CYSTATIN C Lab R outine LAXMI (acute kidney injury) (HCC) 12/26/2022 2:54 PM EDT [facility] Work Phone: End: 08-07-2023 ECG COMPLETE ECG COMPLETE ECG STAT Adenopathy 1 Occurrences starting 08/06/2022 until 08/07/[address] [facility] Work Phone: Comment on above: 1 Occurrences starting 08/06/2022 until 08/07/2023 End: 11-02-2023 ECG COMPLETE ECG COMPLETE ECG Routine Malignant neoplasm of lower-outer quadrant of left breast of female, estrogen receptor positive (HCC) 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) 1 Occurrences starting 11/01/2022 until 11/02/[address] [facility] Work Phone: Comment on above: 1 Occurrences starting 11/01/2022 until 11/02/2023 End: 11-29-2023 ECG COMPLETE ECG COMPLETE ECG Routine 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) Every other week for 2 Occurrences starting 11/28/2022 until 11/29/[address] [facility] Work Phone: Comment on above: Every other week for 2 Occurrences start ing 11/28/2022 until 11/29/2023 End: 08-04-2024 Echocardiography ECHO Cardiology Routine Chemotherapy-induced cardiomyopathy (HCC) Encounter for monitoring cardiotoxic drug therapy 1 Occurrences starting 08/05/2023 until 08/04/2024 [facility] Comment on above: 1 Occurrences starting 08/05/2023 until 08/04/2024 Injection procedure lymphangiography INJECTION PROCEDURE LYMPHANGIOGRAPHY Lymphedema PLASTICS A60 End: 11-28-2023 Magnesium [Mass/volume] in Serum or Plasma MAGNESIUM BLD Lab Routine 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) Once per month for 6 Occurrences starting 11/28/2022 until 11/28/[address] [facility] Work Phone: Comment on above: Once per month for 6 Occurrences startin g 11/28/2022 until 11/28/2023 End: 03-28-2025 MG Breast - right Diagnostic for implant SAMANTHA DIAGNOSTIC RIGHT Radiology Routine Malignant neoplasm of lower-outer quadrant of left breast of female, estrogen receptor positive (HCC) 1 Occurrences starting 02/27/2024 until 03/28/[address] [facility] Work Phone: Comment on above: 1 Occurrences starting 02/27/2024 until 03/28/2025 End: 02-04-2025 MR Breast - bilateral WO and W contrast IV MRI BREAST WO/W IVCON BILATERAL Radiology Routine Malignant neoplasm of lower-outer quadrant of left breast of female, estrogen receptor positive (HCC) 1 Occurrences starting 01/06/2024 until 02/04/[address] [facility] Work Phone: Comment on above: 1 Occurrences starting 01/06/2024 until 02/04/2025 MR Breast - bilatera l WO and W contrast IV MRI BREAST WO/W IVCON BILATERAL Radiology Routine Malignant neoplasm of lower-outer quadrant of left breast of female, estrogen receptor positive (HCC) 02/18/2024 10:51 AM EST [facility] Work Phone: End: 08-02-2022 Mri brain brain stem w/o w/contrast material [facility] Work Phone: Comment on above: 1 Occurrences starting 08/02/2022 until 08/02/2022 End: 02-04-2025 MRI BREAST 3D POST PROCESSING MRI BREAST 3D POST PROCESSING Radiology Routine Malignant neoplasm of lower-outer quadrant of left breast of female, estrogen receptor positive (HCC) 1 Occurrences starting 01/06/2024 until 02/04/2025 [facility] Comment on above: 1 Occurrences starting 01/06/2024 until 02/04/2025 MRI BREAST 3D POST PROCESSING MRI BREAST 3D POST PROCESSING Radiology Routine Malignant neoplasm of lower-outer quadrant of left breast of female, estrogen receptor positive (HCC) 02/18/2024 10:54 AM EST [facility] End: 08-31-2023 MRI BREAST WO/W IVCON BILATERAL MRI BREAST WO/W IVCON BILATERAL Radiology Routine Malignant neoplasm of lower-outer quadrant of left breast of female, estrogen receptor positive (HCC) 1 Occurrences starting 08/01/2022 until 08/31/[address] 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 Work Phone: Comment on above: 1 Occurrences starting 01/09/2023 until 02/08/2024 OUTSIDE VENDOR CARDI AC OUTPATIENT EXTENDED RHYTHM RECORDING (WITHOUT TELEMETRY) OUTSIDE VENDOR CARDIAC OUTPATIENT EXTENDED RHYTHM RECORDING (WITHOUT TELEMETRY) Holter Routine Palpitations Ordered: 05/26/[address] [facility] Work Phone: Comment on above: Ordered: 05/26/2024 OUTSIDE VENDOR CARDI AC OUTPATIENT EXTENDED RHYTHM RECORDING (WITHOUT TELEMETRY) OUTSIDE VENDOR CARDIAC OUTPATIENT EXTENDED RHYTHM RECORDING (WITHOUT TELEMETRY) Holter Routine Palpitations Ordered: 07/15/[address] [facility] Work Phone: Comment on above: Ordered: 07/15/2024 Patient referral [facility] Work Phone: End: 09-03-2024 PET+CT Guidance for localization of tumor of Skull base to mid-thigh-- W 18F-FDG IV NM PET/CT SKULL-THIGH SUBSEQUENT Radiology Routine Malignant neoplasm of lower-outer quadrant of left breast of female, estrogen receptor positive (HCC) 1 Occurrences starting 08/05/2023 until 09/03/2024 [facility] Comment on above: 1 Occurrences starting 08/05/2023 until 09/03/2024 PET+CT Guidance for localization of tumor of Skull base to mid-thigh-- W 18F-FDG IV NM PET/CT SKULL-THIGH SUBSEQUENT Radiology Routine Malignant neoplasm of lower-outer quadrant of left breast of female, estrogen receptor positive (HCC) 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 Work Phone: End: 12-10-2024 PET+CT Guidance for localization of tumor of Skull base to mid-thigh-- W 18F-FDG IV NM PET/CT SKULL-THIGH SUBSEQUENT Radiology Routine 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) 1 Occurrences starting 11/11/2023 until 12/10/2024 [facility] Comment on above: 1 Occurrences starting 11/11/2023 until 12/10/2024 End: 02-04-2025 PET+CT Guidance for localization of tumor of Skull base to mid-thigh-- W 18F-FDG IV NM PET/CT SKULL-THIGH SUBSEQUENT Radiology Routine Malignant neoplasm of overlapping sites of left breast in female, estrogen receptor positive (HCC) 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) Malignant neoplasm of lower-outer quadrant of left breast of female, estrogen receptor positive (HCC) 1 Occurrences starting 01/06/2024 until 02/04/[address] [facility] Work Phone: Comment on above: 1 Occurrences starting 01/06/2024 until 02/04/2025 PET+CT Guidance for localization of tumor of Skull base to mid-thigh-- W 18F-FDG IV NM PET/CT SKULL-THIGH SUBSEQUENT Radiology Routine Malignant neoplasm of overlapping sites of left breast in female, estrogen receptor positive (HCC) 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) Malignant neoplasm of lower-outer quadrant of left breast of female, estrogen receptor positive (HCC) 04/06/2024 10:09 AM EST [facility] Work Phone: End: 05-13-2025 PET+CT Guidance for localization of tumor of Skull base to mid-thigh-- W 18F-FDG IV NM PET/CT SKULL-THIGH SUBSEQUENT Radiology Routine Malignant neoplasm of left breast in female, estrogen receptor positive, unspecified site of breast (HCC) 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 lymph node (HCC) 1 Occurrences starting 04/13/2024 until 05/13/[address] [facility] Work Phone: Comment on above: 1 Occurrences starting 04/13/2024 until 05/13/2025 End: 06-30-2024 PET+CT Guidance for localization of tumor of Skull base to mid-thigh-- W 18F-FDG IV [facility] Work Phone: Comment on above: 1 Occurrences starting 06/30/2024 until 06/30/2024 End: 08-08-2025 PET+CT Guidance for localization of tumor of Skull base to mid-thigh-- W 18F-FDG IV NM PET/CT SKULL-THIGH SUBSEQUENT Radiology Routine Malignant neoplasm of left breast in female, estrogen receptor positive, unspecified site of breast (HCC) 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) 1 Occurrences starting 07/09/2024 until 08/08/[address] [facility] Work Phone: Comment on above: 1 Occurrences starting 07/09/2024 until 08/08/2025 End: 11-29-2025 PET+CT Guidance for localization of tumor of Skull base to mid-thigh-- W 18F-FDG IV NM PET/CT SKULL-THIGH SUBSEQUENT Radiology Routine Malignant neoplasm of left breast in female, estrogen receptor positive, unspecified site of breast (HCC) 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) 1 Occurrences starting 10/30/2024 until 11/29/[address] [facility] Work Phone: Comment on above: 1 Occurrences starting 10/30/2024 until 11/29/2025 End: 11-28-2023 Phosphate [Mass/volume] in Serum or Plasma PHOSPHORUS INORGANIC Lab Routine 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) Once per month for 6 Occurrences starting 11/28/2022 until 11/28/[address] 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 Work Phone: Comment on above: 1 Occurrences starting 01/29/2023 until 02/28/2024 SARS-CoV-2 (COVID-19 ) RNA [Presence] in Respiratory specimen by EMILIA with probe detection SELF CHECK COVID Microbiology Routine Adenopathy Ordered: 08/06/[address] [facility] Work Phone: Comment on above: Ordered: 08/06/2022 SURGICAL PATHOLOGY SURGICAL PATH OLOGY Lab Routine Malignant neoplasm of lower-outer quadrant of left breast of female, estrogen receptor positive (HCC) 07/19/2022 10:01 AM EDT [facility] Work Phone: Tissue Pathology bio psy report [facility] Work Phone: Comment on above: Release Upon Ordering for 1 Occurrences starting 05/18/2024, 1 completed End: 12-12-2024 US Abdomen RUQ US ABD RIGHT UPPER QUADRANT Radiology Routine Right upper quadrant pain 1 Occurrences starting 11/13/2023 until 12/12/[address] [facility] Work Phone: Comment on above: 1 Occurrences starting 11/13/2023 until 12/12/2024 US Abdomen RUQ US ABD RIGHT UPP ER QUADRANT Radiology Routine Right upper quadrant pain 11/19/2023 11:01 AM EDT [facility] Work Phone: End: 08-18-2023 US BIOPSY BREAST LEFT US BIOPSY BREAST LEFT Radiology Routine Abnormal ultrasound of breast 1 Occurrences starting 07/19/2022 until 08/18/[address] [facility] Work Phone: Comment on above: 1 Occurrences starting 07/19/2022 until 08/18/2023 End: 08-03-2023 US BREAST LTD LEFT US BREAST LTD LEFT Radiology Routine Malignant neoplasm of lower-outer quadrant of left breast of female, estrogen receptor positive (HCC) 1 Occurrences starting 07/04/2022 until 08/03/[address] [facility] Work Phone: Comment on above: 1 Occurrences starting 07/04/2022 until 08/03/2023 End: 08-02-2025 US Thyroid gland US THYROID/PARATHYROID Radiology Routine Thyroid nodule 1 Occurrences starting 07/03/2024 until 08/02/[address] [facility] Work Phone: Comment on above: 1 Occurrences starting 07/03/2024 until 08/02/2025 US Thyroid gland US THYROID/PARA THYROID Radiology Routine Thyroid nodule 07/08/2024 11:41 AM EDT [facility] Work Phone: End: 05-10-2025 US Upper extremity vein - left US DVT UPPER LEFT Radiology Routine Malignant neoplasm of left breast in female, estrogen receptor positive, unspecified site of breast (HCC) Swelling of limb 1 Occurrences starting 04/10/2024 until 05/10/2025 [facility] Comment on above: 1 Occurrences starting 04/10/2024 until 05/10/2025 End: 04-10-2025 US Upper extremity veins US ARM VEIN DVT UNL VAS LAB Vascular Lab Routine Malignant neoplasm of left breast in female, estrogen receptor positive, unspecified site of breast (HCC) 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) Swelling of limb 1 Occurrences starting 04/10/2024 until 04/10/[address] [facility] Work Phone: Comment on above: 1 Occurrences starting 04/10/2024 until 04/10/2025 [facility] Work Phone: [facility] Work Phone: [facility] Work Phone: [facility] Work Phone: [facility] Work Phone: [facility] Work Phone: [facility] Work Phone: [facility] Work Phone[facility] Work Phone: [facility] Work Phone: [facility] Work Phone: [facility] Work Phone: [facility] Work Phone: [facility] Work Phone: [facility] Work Phone: [facility] Work Phone: [facility] Work Phone: [facility] Work Phone: [facility] Work Phone: [facility] Work Phone[facility] Work Phone: [facility] Work Phone: [facility] Work Phone[facility] Work Phone: [facility] Work Phone: [facility] Immunizations Immunization Date Immunization Notes Care Provider Fa [facility] 2023 influenza, seasonal, injectable Bianca Addison RN [facility] 2023 influenza virus vaccine, unspecified formulation Tatianna Crook [facility] Work Phone: [facility] 02-19-2022 influenza, injectabl e, quadrivalent, contains preservative Jacinta Rivas MD Work Phone: [facility] 02-19-2022 pneumococcal (PCV20) vaccine, 20 valent (PREVNAR 20) Jacinta Rivas MD Work Phone: [facility] 02-19-2022 pneumococcal Conjugate, unspecified formulation Jacinta Rivas MD Work Phone: [facility] Work Phone: 02-19-2022 influenza virus vaccine, unspecified formulation Serena Carrasco DO Work Phone: [facility] 02-13-2021 influenza, injectabl e, quadrivalent, contains preservative Serena Sandhui DO Work Phone: [facility] 01-27-2020 influenza, injectabl e, quadrivalent, preservative free Serena Masci DO Work Phone: [facility] Payers Date Payer Category Payer Self-pay [id number] 2024 Medicare [id number] 2023 Medicare [id number] 2023 Medicare [id number] 2021 Unknown 2021 Unknown [employer] PPO [id number] 2021-Present [phone] [address] [place] [address] PPO [id number] 2021 Unknown [id number] 2014 Private Health Insurance [id number] Private Health Insurance [id number] Unknown [id number] Unknown [id number] Unknown [id number] Unknown [id number] Unknown [id number] Unknown [id number] Social History Date Type Detail Facility Start: 02-10-2020 End: 08-23-2022 Alcohol Use Never smoker [facility] Work Phone: Comment on above: Occasional alcohol u se 0-1 QD 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 [facility] Work Phone: Comment on above: 08/29/11 Start: 04-19-2017 End: 10-14-2024 Tobacco smoking status UTIS Never smoked tobacco [facility] Start: 04-19-2017 End: 10-14-2024 Tobacco use and exposure Smokeless tobacco non-user [facility] Start: 02-15-2021 End: 10-30-2024 Alcohol intake Current drinker of alcohol (finding) [facility] Start: 02-11-2020 End: 03-01-2020 History SDOH Alcohol Frequency 2 [facility] Start: 02-11-2020 End: 03-01-2020 History SDOH Alcohol Std Drinks 1 [facility] Start: 02-23-2019 History SDOH Alcohol Comment occasional [facility] Start: 02-11-2020 History SDOH Social Connections Phone 5 [facility] Start: 02-11-2020 History SDOH Social Connections Rastafarian 3 [facility] Start: 02-11-2020 History SDOH Physica l Activity DPW 6 [facility] Start: 02-10-2020 Education 18 [facility] Start: 1960 Sex Assigned At Not on file [facility] Start: 11-29-2020 End: 02-19-2022 Exposure to SARS-CoV-2 (event) Not sure [facility] Start: 08-27-2021 End: 09-06-2021 Exposure to SARS-CoV-2 (event) Unable to assess [facility] Work Phone: Start: 04-23-2017 End: 07-08-2023 Tobacco smoking status UTIS Unknown if ever smoked [facility] Start: 1960 Sex Assigned At Female W [facility] Start: 02-10-2020 End: 08-23-2022 Social connection and isolation panel [facility] Do you belong to any clubs or organizations such as scientologist groups, unions, fraternal or athletic groups, or school groups? Yes [facility] Are you now , , , , never or living with a partner? [facility] How often to you hav e a drink containing alcohol? Monthly or less [facility] How many standard drinks containing alcohol do you have on a typical day? 1 or 2 [facility] How often do you hav e 6 or more drinks on 1 occasion? Never [facility] How hard is it for y ou to pay for the very basics like food, housing, medical care, and heating Not hard at all [facility] Do you feel stress - tense, restless, nervous, or anxious, or unable to sleep at night because your mind is troubled all the time - these days [OSQ] To some extent [facility] The food that (I/we) bought just didn't last, and (I/we) didn't have money to get more. Never true [facility] In the past 12 month s, was there a time when you were not able to pay the mortgage or rent on time? No [facility] Start: 05-04-2024 Alcohol Comment 2 drinks per month [facility] NEGATED: Highlighted rowStart: NINF History of tobacco use Passive smoker [facility] Medical Equipment Procedure Code Equipment Code Equipment Origin al Text Equipment Identifier Dates Matrix Alloderm Thick Acellular Dermis [id number] Tissue Allograft - [id number] Start: 10-08-2017 Trident Solidbac k Acetabular Shell 52mm E [id number] Start: 03-20-2019 Liner 36mm 0d E X3 5.9mm Acetabular Hip - [id number] Start: 03-20-2019 Head V40 36mm 0m m Offset Taper Biolox Delta Femoral Hip - [id number] Start: 03-20-2019 Stem Accolade Ii 4 127d Femoral - [id number] Start: 03-20-2019 Imp Brst 405cc S sm Lorraine Inspr - [id number] Start: 10-08-2017 Implant Dina Inspira Low Profile Silicone Breast Smooth Shell Surface - [id number] Start: 08-29-2018 Comment on above: Description: Natrell e inspira breast implant, smooth round low profile 230 cc PORT,6FR POWER PORT FDA Start: 04-24-2017 PORT,6FR POWER PORT FDA Start: 04-24-2017 [id number], [id number], [id number], [id number], [id number] Start: 07-18-2023 End: 08-10-2024 Comment on above: Use with blood gluco se test two times a day. Insulin Dep? No Use with blood gluco se test two times a day. Insulin Dep? No E11.65 PORT,6FR POWER PORT FDA Start: 04-24-2017 Functional Status Date Assessment Result Facility 05-07-2024 Total score [AUDIT-C] 1 05/07/19 2:27 PM EST User, [email or web address] [facility] 05-07-2024 Within the last year , have you been humiliated or emotionally abused in other ways by your partner or ex-partner? No 05/07/2024 2:27 PM EST User, [email or web address] No [facility] 05-07-2024 Within the last year , have you been afraid of your partner or ex-partner? No 05/07/2024 2:27 PM EST User, [email or web address] No [facility] 05-07-2024 Within the last year , have you been raped or forced to have any kind of sexual activity by your partner or ex-partner? No 05/07/2024 2:27 PM EST User, Mychart No [facility] 05-07-2024 Within the last year , have you been kicked, hit, slapped, or otherwise physically hurt by your partner or ex-partner? No 05/07/2024 2:27 PM EST User, [email or web address] No [facility] 05-07-2024 How often to you hav e a drink containing alcohol? Monthly or less 05/07/2024 2:27 PM EST User, Mychart Monthly or less [facility] 05-07-[address] inks containing alcohol do you have on a typical day? 1 or 2 05/07/2024 2:27 PM EST User, Mychart 1 or 2 [facility] 05-07-2024 How often do you hav e 6 or more drinks on 1 occasion? Never 05/07/2024 2:27 PM EST User, Mychart Never [facility] 03-21-2019 Are you deaf, or do you have serious difficulty hearing No 03/21/2019 1:43 PM Rosendo Henry RN No [facility] 03-21-2019 Are you blind, or do you have serious difficulty seeing, even when wearing glasses No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 scan last year that showed no evidence of malignancy. She's had pain under left breast that was attributed to rib fracture with healing. Over the last year there's been a lump in lower left breast thought associated to healing underlying rib fracture. Core needle biopsy performed on 03/29/2017: Left breast, core biopsy: Invasive ductal carcinoma, nuclear grade 2 (1.3 cm in greatest length). ER (clone [id number]) >95%, strong SC (clone [id number]/[id number]) >95%, strong Her-2Neu (clone [id number]) 0 There was a spiculated mass at the lower outer left breast measuring 2.7 x 1.8 x 3.5 cm with central clip artifact consistent with the biopsy-proven malignancy. It was in the posterior depth but there was no evidence of chest wall involvement. There were no other abnormal areas of enhancement within the left breast. There were 2 abnormally thickened enhancing lymph nodes high in the left axilla that were suspicious for axillary node metastases. There are also several rounded nodes in the left high subpectoral region with the largest measuring 7 mm in short axis. These were noted to be suspicious. A possible 4 mm in short axis left internal mammary node was also appreciated. Full staging workup including CT scans of the chest, abdomen and pelvis as well as brain MRI and whole-body bone scan shows some mild activity in the distal femur on the right. Plain films showed degenerative changes without any osteoblastic or osteolytic activity. The CT scans disclosed 2 hypodense lesions in the liver that on MRI had signal characteristics consistent with hemangioma. Brain MRI was normal. Previous therapy: 1) Neoadjuvant AC followed by Taxol. 2) Underwent a left nipple sparing mastectomy with left axillary lymph node dissection and left arm reverse axillary mapping on 10/08/2017. This was done in conjunction with a implant and acellular dermal matrix with a lymphatico-venous bypass to the left axilla. 3) Adjuvant radiation to left chest wall/axilla and supraclavicular area completed 01/02/2018. Pathology from 10/08/2017 surgery: 1. Left axillary contents, excision (A) - Four of five lymph nodes, positive for metastatic carcinoma (4/5) with treatment effect. - Extranodal extension is present. - Biopsy clips and changes consistent with prior biopsy sites. 2. Left breast, mastectomy (B) - Fibrous tumor bed with residual invasive ductal carcinoma, histologic grade 1. - Ductal carcinoma in situ, intermediate nuclear grade, solid type. - Biopsy clip and changes consistent with prior biopsy site. - Please see synoptic report. SYNOPTIC REPORT OF [place] PATHOLOGIC FINDINGS LEFT BREAST: BREAST INVASIVE CARCINOMA WORKSHEET Part: A and B Procedure: Total mastectomy (including nipple-sparing and skin-sparing mastectomy) Specimen Laterality: Left Tumor size: Size of largest invasive carcinoma: Greatest dimension of largest focus of invasion >1 mm: 9 mm Tumor Focality: Single focus of invasive carcinoma Histologic Type of Invasive Carcinoma: Invasive carcinoma of no special type (ductal, not otherwise specified) Histologic Grade: Glandular (Acinar) / Tubular Differentiation: Score 2 Nuclear Pleomorphism: Score 2 Mitotic Rate: Score 1 (<=3 mitosis per mm2) Overall Grade: Grade I Ductal Carcinoma In Situ: DCIS is present in specimen DCIS Nuclear Grade: Grade II (intermediate) Tumor Extension: Skin: Not applicable Nipple: Not applicable Skeletal muscle: Not applicable Invasive Carcinoma Margins: Margins uninvolved by invasive carcinoma Distance from closest margin: 2 mm Closest margin: Inferior radial DCIS Margins: Margins uninvolved by DCIS Distance from closest margin: 5 mm Closest margin: Inferior radial Lymph Nodes: Involved by tumor cells Number of lymph nodes with macrometastases (>2 mm): 4 Number of lymph nodes with micrometastases (>0.2 mm to 2 mm and/or >200 cells): 0 Number of lymph nodes with isolated tumor cells (<= 0.2 mm and <= 200 cells): 0 Size of largest metastatic deposit: 8 mm Extranodal extension present: 1.5 mm Number of lymph nodes examined: 5 Treatment Effect: Treatment effect in the breast Treatment effect in the lymph nodes Probable or definite response to presurgical therapy in the invasive carcinoma Probable or definite response to presurgical therapy in metastatic carcinoma Lymph-Vascular Invasion: Present Pathologic Stage Classification (pTNM,AJCC 8th ed) TNM Descriptor(s): y (post- treatment) Primary Tumor (Invasive Carcinoma) (pT): pT1b Regional Lymph Nodes (pN): Modifier: Not applicable Category (pN): pN2a Distant metastasis: Distant Metastasis (pM) Not applicable/Not confirmed pathologically in this case Estrogen & progesterone receptors: Previously performed (HER2) ERBB2 Status: 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 3) [facility] Stopped 08/2022. Metastatic disease. 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 Was seen by Dr. Bingham for the nodule appreciated on previous exam. Underwent punch biopsy on 07/19/2022. Pathology: Skin, left breast, punch biopsy: -Consistent with metastatic breast adenocarcinoma, see comment. Histologic sections demonstrate a largely unremarkable epidermis overlying a dermis filled with infiltrative cords and nests of pleomorphic epithelioid cells with ductal formation. To better characterize the specimen, ancillary immunohistochemical staining was performed on block A1 at the [facility] and compared to appropriate reactive controls. The epithelioid cells are positive for CK7 and GATA3. These histologic findings are consistent with metastatic breast adenocarcinoma from the patient's known malignancy. Underwent bronchoscopy on 08/14/2022 where lymph node sampling was performed of a 4L lymph node. Pathology: EBUS TRANSBRONCHIAL FINE NEEDLE ASPIRATE, LYMPH NODE - 4L Positive for malignant cells. Metastatic adenocarcinoma consistent with breast primary (see comment). Previous therapy for metastatic disease: 1) Verzenio. Began began 08/24/2022. Stopped due to fatigue and diarrhea. 2) Faslodex. Began 08/23/2022. 3) Ribociclib. Began 11/19. Current therapy: 1) Exemestane (05/13/2023) and everolimus second week April 2023. Was at [facility]. Had PET scan on 05/02. Demonstrated stable appearance of FDG uptake in the soft tissue thickenings along posterior left breast prosthesis and also small skin nodule left anterior breast as compared with outside PET/CT on 01/28. Small right axillary node with FDG avid uptake was noted to be stable. This was thought to be reactive rather metastatic disease. No other FDG avid lesions were observed including mediastinal and/or hilar adenopathy. Underwent wide local excision of the 2 areas of left chest wall recurrence and explant of contracted left breast implant on 05/18/2024. Both specimens consistent with invasive ductal carcinoma, grade 3. Presents for ongoing oncologic management. Interim history: Saw Dr. Carter. Losartan and and HCTZ dose decreased by 50%. She's having a hard time breaking HCTZ in half. No oral sores/ulcerations. Lips get irritated. Using vaseline and zinc oxide paste. PMH, medications and allergies personally reviewed by me today. Any changes documented in appropriate section. ROS: Constitutional: Denies episodes of fever and night sweats. Neuro: Denies YOUSIF, vertigo, dizziness and imbalance. HEENT: No recent change in voice, vision or hearing. Resp: See HPI. CVS: See HPI.. GI: Denies dysgeusia. Denies symptoms of stomatitis. Denies dysphagia and odynophagia. Denies reflux. : Denies dysuria or gross hematuria. No symptoms of bladder outlet obstruction. Endo: Denies polyuria and polydipsia. Denies heat and cold intolerance. Derm: Denies rash. Denies jaundice and diffuse pruritis. Heme: Denies unusual bleeding and unexplained bruising. Psych: Normal mood. Participation of a fellow, resident, medical student, or advanced practice provider student in performing the sensitive examination was discussed with the patient or authorized traffic representative. The patient or authorized traffic representative has agreed to proceed with the sensitive examination. Myriam Peck LPN chaperoned. PHYSICAL EXAM: Vitals: Blood pressure 124/78, pulse 91, temperature 36.8 C (98.3 F), temperature source Temporal, weight 81.9 kg (180 lb 8 oz), SpO2 100%. -appearing and in no acute distress. EYES: Sclerae are anicteric bilaterally. LYMPHATIC: There is no palpable cervical or supraclavicular adenopathy. No axillary adenopathy bilaterally. CARDIOVASCULAR: Rhythm is regular. BREAST: Left sided implant previous removed. Well-healed. No chest wall mass or nodule. ABDOMEN: The abdomen is nondistended. Extremities: More swelling left arm compared to the right. SKIN: No jaundice or rash. 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 -KPS is 100%. -PET scan indicated disease left chest wall and mediastinal lymph nodes. -MRI brain negative. -Biopsy-proven disease recurrence left chest wall inferior and posterior to implant. -ER positive (99% strong staining intensity), SC positive (2% with strong staining intensity), HER2 2+; nonamplified by FISH testing. 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 -MRI Breast 03/28/2023 demonstrated PD and therapy was rotated to Faslodex and Afinitor. Oncology at [facility] recommended exemestane with Afinitor. -Symptomatically tolerating well. - Reviewed PET scan images and compared to the 2 most recent PET scans. Although uptake in the 2 right axillary nodes slightly increased, that was the site of injection. Size of nodes remains the same. No recurrent mediastinal adenopathy. No evidence of left chest wall disease. Overall stable disease. -Continues to tolerate exemestane and everolimus very well with no unexpected or severe toxicity. Discussed continuing. Plan: -Continue exemestane and everolimus. -Resume every 6 month Zometa. -Follow up with endocrinology for management of diabetes. -PET in about 3-4 months. (I42.7, T45.1X5A) Chemotherapy-induced cardiomyopathy (HCC) Assessment: -Earlier in her clinical course, patient had otherwise unexplained persistent tachycardia. Echo showed normal EF but I had reviewed with cardiology--there was a 10 percent change in the strain pattern suggestive of early cardiomyopathy. -I again discussed with her the importance of blood pressure control. Encouraged her to get a home blood pressure cuff and monitor blood pressures to share with her manager of planning and PCP. Plan: -Continue follow up with cardiology. (I89.0) Lymphedema of left arm Assessment: -Recurrent. -Seeing PT in [place]. Is to get home lymphatic pump. Plan: - Follow-up with physical therapy. HTN -Rx HCTZ 12.5 mg tablets. Portions of this documentation were copied and pasted from my previous office visit note dated 07/09/2024 in order to provide a cohesive continuity of the history. The note has been reviewed and edited and updated as necessary. Serena Carrasco DO documented in this encounter [facility] 10-28-2024 Note HNO ID: [id number] Author: NOE JACKSON PTA Service: ? Author Type: Reinforcer Type: Progress Notes Filed: 10/28/2024 16:36 Note Text: Episode Visit Count: 10 Therapist That Will Accept/Oversee The Plan Of Care: Milagros Brown PT Start of Care Date: 08/27/24 Onset Date: 05/18/24 (diagnosed with breast cancer 2017, subsequent mastectomy) Plan of Care Certification Date: 10/07/24 Next Certification Due Date: 12/07/24 Patient Identified by Name and Date of : Yes REHABILITATION AND SPORTS THERAPY PHYSICAL THERAPY TREATMENT NOTE ASSESSMENT: Pat Sorto tolerated the session with expected muscle soreness. She demonstrated improvement in mobility and tightness post MLD this date. Reached out to [facility] for pump to check in on status of coverage for pump as well as assisted pt with direct contact of pt scheduler conveyor to schedule lymphangiography as doctor requested. The patient will continue to benefit from ongoing skilled physical therapy to progress toward set goals. PLAN FOR NEXT VISIT: Continue with MLD SUBJECTIVE: By night time her arm is pretty stiff. Having a difficult time flexing her wrist and supinating her forearm, feels tight and tender to do this. Went to healthcare analyst, they said the redness is stagnant blood in her arm. No more e coli with her culture test but still something there. Is on another prescription now for this. The sleeve is going okay. Tender at top of her arm. Pain: Pain Pain Location: Upper Arm - Left, Forearm - Left Description: Tightness Post Treatment Pain Post Treatment Pain Level: Better Post Treatment Pain Location: Upper Arm - Left, Forearm - Left OBJECTIVE MEASURES WITH LEVEL OF FUNCTION: Pt arrives to clinic with no sleeve donned; it is in the car. TREATMENT: Manual Therapy: 1: L UE MLD: Supraclavicular LN -- Superficial abdominals -- R axillary L-- inter-axillary anastomoses -- L inguinal LN -- axillo-inguinal anastomoses -- L shoulder/rotators -- L upper arm medial to lateral drainage emphasis -- elbow -- anterior/posterior forearm -- L wrist/hand --fingers -- follow up Skilled Intervention: Manual skills to improve joint mobility, ROM, and decrease pain. Utilized anatomy knowledge of the clinician, and assessment of patient's response to intervention. Self-Senior Care Management: 2: Assisted pt with direct contact with pt scheduler conveyor from [facility] for lymphangiography procedure, as well as rep for pump Skilled Intervention: Skilled judgment in the selection of proper modification for activity of daily living/home management based on clinical presentation, deficits, and needs. Reviewed patient specific diagnosis in relation to activities of daily living/home management. Billing Manual TherapyTreatment Minutes: 21 Self-Care/Home Management Treatment Minutes: 15 Skilled Treatment Time Minutes (timed and untimed codes): 36 Total Session Time (minutes): 36 Session Start Time : 1552 Session Stop Time : 1628 Noe Jackson [facility] 10-28-2024 History of Present illness Narrative Episode Visit Count: 10 Therapist That Will Accept/Oversee The Plan Of Care: Milagros Brown PT Start of Care Date: 08/27/24 Onset Date: 05/18/24 (diagnosed with breast cancer 2018, subsequent mastectomy) Plan of Care Certification Date: 10/07/24 Next Certification Due Date: 12/07/24 Patient Identified by Name and Date of : Yes REHABILITATION AND SPORTS THERAPY PHYSICAL THERAPY TREATMENT NOTE ASSESSMENT: Pat Sorto tolerated the session with expected muscle soreness. She demonstrated improvement in mobility and tightness post MLD this date. Reached out to rep for pump to check in on status of coverage for pump as well as assisted pt with direct contact of pt scheduler conveyor to schedule lymphangiography as doctor requested. The patient will continue to benefit from ongoing skilled physical therapy to progress toward set goals. PLAN FOR NEXT VISIT: Continue with MLD SUBJECTIVE: By night time her arm is pretty stiff. Having a difficult time flexing her wrist and supinating her forearm, feels tight and tender to do this. Went to healthcare analyst, they said the redness is stagnant blood in her arm. No more e coli with her culture test but still something there. Is on another prescription now for this. The sleeve is going okay. Tender at top of her arm. Pain: Pain Pain Location: Upper Arm - Left, Forearm - Left Description: Tightness Post Treatment Pain Post Treatment Pain Level: Better Post Treatment Pain Location: Upper Arm - Left, Forearm - Left OBJECTIVE MEASURES WITH LEVEL OF FUNCTION: Pt arrives to clinic with no sleeve donned; it is in the car. TREATMENT: Manual Therapy: 1: L UE MLD: Supraclavicular LN -- Superficial abdominals -- R axillary L-- inter-axillary anastomoses -- L inguinal LN -- axillo-inguinal anastomoses -- L shoulder/rotators -- L upper arm medial to lateral drainage emphasis -- elbow -- anterior/posterior forearm -- L wrist/hand --fingers -- follow up Skilled Intervention: Manual skills to improve joint mobility, ROM, and decrease pain. Utilized anatomy knowledge of the clinician, and assessment of patient's response to intervention. Self-Senior Care Management: 2: Assisted pt with direct contact with pt scheduler conveyor from [facility] for lymphangiography procedure, as well as [facility] for pump Skilled Intervention: Skilled judgment in the selection of proper modification for activity of daily living/home management based on clinical presentation, deficits, and needs. Reviewed patient specific diagnosis in relation to activities of daily living/home management. Billing Manual TherapyTreatment Minutes: 21 Self-Care/Home Management Treatment Minutes: 15 Skilled Treatment Time Minutes (timed and untimed codes): 36 Total Session Time (minutes): 36 Session Start Time : 1551 Session Stop Time : 1627 Noe Jackson PTA documented in this encounter [facility] 10-26-2024 Note [facility] 10-26-2024 History of Present illness Narrative SUBJECTIVE Pat Sorto is a 64 year old female here today for a check up on her medical problems. Chief Complaint Patient presents with: Recheck: Pain in left arm 6/10 heavy tender full warm discolored HPI Pat Sorto is a 64-year-old female presenting for follow-up on persistent arm swelling and erythema. Pat reports persistent swelling and erythema in her arm, which she attributes to a previous E. coli infection. She notes that the arm remains puffy, discolored, and warm to the touch. Despite ongoing physical therapy, she observes minimal improvement, with only a centimeter reduction in swelling. She expresses concern that the arm is becoming harder and tighter, and she feels behind the eight ball in managing the condition. She also reports a sensation of heaviness in the arm, particularly by the evening, and describes a feeling of bloating and water retention. She is currently taking hydrochlorothiazide. Pat has been wearing a compression sleeve, but notes that it causes tenderness and cuts across inflamed areas of her arm. She has been awaiting a dye test to identify potential blockages and is frustrated with the delay in scheduling. She mentions that her physical therapist is also concerned about the increasing tightness in her arm. She is eager to obtain a pump machine to assist with fluid management. She recently experienced a rash on two fingers, which she attributes to a reaction from doxycycline and sun exposure. The rash was characterized by a burning and itching sensation. She is also concerned about the possibility of ongoing cellulitis and inquires about the need for further antibiotics. Was seen for UTI and culture was positive for e. Coli. Retest today to ensure resolution. Her medications were reviewed today and her list is now up to date. Medications Current Outpatient Medications Medication Sig insulin glargine (LANTUS SOLOSTAR U-100 INSULIN) 100 unit/mL (3 mL) Inject 30 Units subcutaneously every morning. hydroCHLOROthiazide 25 mg tablet Take 25 mg by mouth once daily. amLODIPine (NORVASC) 5 mg tablet Take 5 mg by mouth once daily. traZODone (DESYREL) 50 mg tablet Take 1 tablet by mouth daily at bedtime. metoprolol succinate ER (TOPROL XL) 25 mg 24 hr tablet take 1 tablet by mouth once daily exemestane (AROMASIN) 25 mg tablet Take 1 tablet by mouth once daily. losartan (COZAAR) 100 mg tablet Take 1 tablet by mouth every afternoon. everolimus, antineoplastic, (AFINITOR) 10 mg tablet TAKE 1 TABLET ONCE DAILY Sodium Fluoride, Dental Rinse, 0.2 % SWISH 10 ML BY MOUTH THEN SPIT ONCE WEEKLY diphenhydrAMINE-Acetaminophen (TYLENOL PM EXTRA STRENGTH) 25-500 mg tab Take 1 tablet by mouth at bedtime as needed. aspirin, enteric coated (ASPIRIN, ENTERIC COATED) 81 mg EC tablet Take 81 mg by mouth once daily. pantoprazole DR (PROTONIX) 40 mg tablet Take 40 mg by mouth daily before breakfast. ascorbic acid, vitamin C, (VITAMIN C) 500 mg tablet Take 500 mg by mouth once daily. alpha tocopheryl acetate (VITAMIN E) 400 unit capsule Take 400 Units by mouth once daily. cyanocobalamin (VITAMIN B-12) 1,000 mcg tab Take 500 mcg by mouth once daily. VITAMIN D 50,000 unit capsule 1 capsule one time a week. CALCIUM CARBONATE (CALCIUM 500 ORAL) Take 1 tablet by mouth once daily. DROPLET PEN NEEDLE 31 gauge x /16 1 each two times a day. ursodiol (LEENA) 250 mg tablet Take 250 mg by mouth two times a day. (Patient taking differently: Take 2-3 tablets by mouth two times a day. Takes 3 tablets in AM and 2 tablets in PM) AquacueTOUCH ULTRA PLUS TEST strp 1 Each two times a day. E11.65; No insulin (Patient taking differently: 1 each two times a day. E11.65) Lancets Use with blood glucose test two times a day. Insulin Dep? No blood sugar diagnostic (BLOOD GLUCOSE TEST) test strip Use with blood glucose test two times a day. Insulin Dep? No No current facility-administered medications for this visit. ALLERGIES Allergen Reactions Amoxicillin Rash rash arms trunk neck face, itching Chills Tolerates [facility] ACTIVE PROBLEM LIST Gastroesophageal Reflux Disease - 05/04/2024 Type 2 Diabetes Mellitus Without Complication, With Long-Term Current Use of Insulin ([facility]) - 05/04/2024 Lymphedema of Left Arm - 07/15/2023 Dehydration - 10/30/2022 Functional Diarrhea - 09/20/2022 Metastasis to Mediastinal Lymph Node (Hcc) - 08/16/2022 Class 1 Obesity Due to Excess Calories With Serious Comorbidity and Body Mass Index (Bmi) of 32.0 to 32.9 in Adult - 08/09/2022 Carcinoma of Left Breast Metastatic to Skin (Hcc) - 08/01/2022 Status Post Right Hip Replacement - 06/02/2019 Lumbar Degenerative Disc Disease - 06/02/2019 Primary Localized Osteoarthritis of Right Hip - 03/20/2019 Total Knee Replacement Status, Left - 02/23/2019 History of Radiation Therapy - 08/13/2018 Hypertension - 04/22/2018 Examination of Participant in Clinical Trial - 01/27/2018 Axillary Pain, Left - 11/21/2017 Musculoskeletal Chest Pain - 11/21/2017 Primary Biliary Cirrhosis (Hcc) - 09/24/2017 Chemotherapy-Induced Cardiomyopathy (Hcc) - 08/19/2017 Chemotherapy-Induced Neuropathy (Hcc) - 08/19/2017 Malignant Neoplasm of Left Female Breast (Hcc) - 08/15/2017 Comment: Added automatically from request for surgery [id number] Stomatitis and Mucositis - 06/28/2017 Antineoplastic Chemotherapy Induced Anemia - 06/12/2017 Malignant Neoplasm of Lower-Outer Quadrant of Left Breast of Female, Estrogen Receptor Positive (Hcc) - 04/19/2017 Metastatic Cancer to Axillary Lymph Nodes (Hcc) - 04/19/2017 Social History Tobacco Use Smoking status: Never Passive exposure: Never Smokeless tobacco: Never Vaping Use Vaping status: Never Used Substance Use Topics Alcohol use: Yes Comment: 2 drinks per month Drug use: No Review of Systems Respiratory: Negative. Cardiovascular: Negative. OBJECTIVE BP 122/78 Pulse 85 Wt 181 lb (82.1kg) SpO2 97% Physical Exam Vitals and nursing note reviewed. Constitutional: General: She is awake. She is not in acute distress. Appearance: Normal appearance. She is well-developed and well-groomed. She is not ill-appearing, toxic-appearing or diaphoretic. HENT: Head: Normocephalic. Right Ear: External ear normal. Left Ear: External ear normal. Nose: Nose normal. Eyes: General: Vision grossly intact. Conjunctiva/sclera: Conjunctivae normal. Pupils: Pupils are equal, round, and reactive to light. Neck: Vascular: No JVD. Trachea: Trachea normal. Pulmonary: Effort: Pulmonary effort is normal. No accessory muscle usage, prolonged expiration or respiratory distress. Musculoskeletal: Cervical back: Neck supple. Lymphadenopathy: Comments: Left arm with lymphedema enlargement Skin: General: Skin is warm and dry. Capillary Refill: Capillary refill takes less than 2 seconds. Neurological: General: No focal deficit present. Mental Status: She is alert and oriented to person, place, and time. Mental status is at baseline. Psychiatric: Attention and Perception: Attention and perception normal. Mood and Affect: Mood and affect normal. Speech: Speech normal. Behavior: Behavior normal. Behavior is cooperative. Thought Content: Thought content normal. Cognition and Memory: Cognition and memory normal. Judgment: Judgment normal. ASSESSMENT/PLAN: 1. Lymphedema of left arm (I89.0) Persistent edema with erythema and warmth, likely related to lymphedema rather than residual infection. Minimal improvement noted with current treatment. Patient experiencing discomfort from compression sleeve and reports heaviness in the arm. - Initiated increased dosage of hydrochlorothiazide to two pills daily for 5 days to reduce fluid retention. - Discussed potential use of a steroid course to decrease inflammation if no improvement with diuretic therapy. - Sent message to Dr. Marcelino and Mino Beard to expedite scheduling of lymphangiography with dye test. - Patient to follow up with me in 5 days to report on the effectiveness of the increased diuretic dosage. 2. Urinary tract infection with hematuria, site unspecified (N39.0) Previous E. coli infection suspected to be resolved. No current signs of acute infection. - Ordered urine dipstick and culture to confirm resolution of infection. - Will initiate further antibiotic therapy if culture results indicate persistent infection. 3. Renal insufficiency (N28.9) Stable, no acute changes noted.Only take increased dose of HCTZ for 5 days to avoid any further strain on kidneys. Recording using [employer] software for draft documentation of the visit was discussed with the patient/authorized traffic representative; all questions welcomed and answered. Patient/authorized traffic representative agreed to proceed Portions of this note have been entered by ancillary staff. I have reviewed and when necessary edited, so that they are an adequate record of my encounter with this patient Please note that parts of this document were created using voice recognition software and therefore may contain grammatical errors. Patient verbalizes understanding of instructions from today's visit and in agreement with treatment plan. Questions answered. Agrees to call the office if questions, concerns of issues with acute symptoms not improving or if they worsen. See diagnoses and orders for additional plan(s). Allergies and medications were reviewed, list was updated, and refills given if needed. Past medical, surgical, social, and family history reviewed and updated as appropriate. Encouraged proper diet & exercise as well as compliance with taking medications. Age-appropriate health preventative measures were discussed. Return if symptoms worsen or fail to improve, for Keep next scheduled appointment.. TEZ Ugalde documented in this encounter [facility] 10-26-2024 History of Present illness Narrative RADIOLOGY SERVICE PROGRESS NOTE SERVICE DATE: 10/26/2024 SERVICE TIME: 9:47 AM PATIENT IDENTITY VERIFICATION COMPLETED USING TWO (2) STANDARD IDENTIFIERS: Name and Date of confirmed by patient verbally FALL SCREENING: Has the patient had 2 falls in the last year or 1 fall with injury or currently using an Ambulatory Assistive Device (Walker, Cane, Wheelchair, Crutches, etc.)? No PATIENT GENDER DATA: .female ALLERGIES: Reviewed and unchanged MEDICATIONS REVIEWED: Not applicable PATIENT RELEVANT IMPLANT DATA REVIEWED: Not Applicable PATIENT PRESENTS WITH AN IMPLANTABLE OR ATTACHED BILLING AND INSURANCE COORDINATOR: No CREATININE: Creatinine Date Value Ref Range Status 10/07/2024 1.87 (H) 0.58 - 0.96 mg/dL Final 09/22/2024 1.96 (H) 0.58 - 0.96 mg/dL Final 09/01/2024 1.47 (H) 0.58 - 0.96 mg/dL Final Estimated Glomerular Filtration Rate Date Value Ref Range Status 10/07/2024 30 (L) >=60 mL/min/1.73m Final Comment: Estimated Glomerular Filtration Rate (eGFR) is calculated using the 2020 CKD-EPI creatinine equation. This equation utilizes serum creatinine, sex, and age as parameters. The creatinine assay has traceable calibration to isotope dilution-mass spectrometry. Refer to KDIGO guidelines for clinical interpretation. In patients with unstable renal function, e.g. those with acute kidney injury, the eGFR may not accurately reflect actual GFR. eGFR- Date Value Ref Range Status 02/15/2021 >60 Final P.O.C.T. RESULTS: N/A October 26, [address] PERFORMED: No IV SITE: Ambulatory: NM only - direct IV injection in the Right antecubital site POST EXAM PIV STATUS: Discontinued PROCEDURE TYPE: NM INJECT: PET/CT BODY SCAN. 10.9 mCi F18 FDG. Administered By: mo . No other medications given.. ADMINISTRATION TIME: 0942 PATIENT DISCHARGED TO: Ambulatory patient, left NM department area. Is this a therapy: No A Diagnostic radioactive procedure has taken place, with no further precautions necessary other than routine body substance precautions. More information regarding radiation safety can be found using this link: [email or web address] SIGNATURE: PATRICIA Ying) PATIENT NAME: Pat Sorto DATE: October 26, 2024 TIME: 9:47 AM PAGER/CONTACT #: documented in this encounter [facility] 10-26-2024 Note HNO ID: [id number] Author: MYLA DO RT (R) Service: Nuclear Medicine Author Type: Technologist Type: Progress Notes Filed: 10/26/2024 09:47 Note Text: RADIOLOGY SERVICE PROGRESS NOTE SERVICE DATE: 10/26/2024 SERVICE TIME: 9:47 AM PATIENT IDENTITY VERIFICATION COMPLETED USING TWO (2) STANDARD IDENTIFIERS: Name and Date of confirmed by patient verbally FALL SCREENING: Has the patient had 2 falls in the last year or 1 fall with injury or currently using an Ambulatory Assistive Device (Walker, Cane, Wheelchair, Crutches, etc.)? No PATIENT GENDER DATA: .female ALLERGIES: Reviewed and unchanged MEDICATIONS REVIEWED: Not applicable PATIENT RELEVANT IMPLANT DATA REVIEWED: Not Applicable PATIENT PRESENTS WITH AN IMPLANTABLE OR ATTACHED BILLING AND INSURANCE COORDINATOR: No CREATININE: Creatinine Date Value Ref Range Status 10/07/2024 1.87 (H) 0.58 - 0.96 mg/dL Final 09/22/2024 1.96 (H) 0.58 - 0.96 mg/dL Final 09/01/2024 1.47 (H) 0.58 - 0.96 mg/dL Final Estimated Glomerular Filtration Rate Date Value Ref Range Status 10/07/2024 30 (L) >=60 mL/min/1.73m? Final Comment: Estimated Glomerular Filtration Rate (eGFR) is calculated using the 2020 CKD-EPI creatinine equation. This equation utilizes serum creatinine, sex, and age as parameters. The creatinine assay has traceable calibration to isotope dilution-mass spectrometry. Refer to KDIGO guidelines for clinical interpretation. In patients with unstable renal function, e.g. those with acute kidney injury, the eGFR may not accurately reflect actual GFR. eGFR- Date Value Ref Range Status 02/15/2021 >60 Final P.O.C.T. RESULTS: N/A October 26, [address] PERFORMED: No IV SITE: Ambulatory: [place] only - direct IV injection in the Right antecubital site POST EXAM PIV STATUS: Discontinued PROCEDURE TYPE: NM INJECT: PET/CT BODY SCAN. 10.9 mCi F18 FDG. Administered By: mo . No other medications given.. ADMINISTRATION TIME: 941 PATIENT DISCHARGED TO: Ambulatory patient, left [place] department area. Is this a therapy: No A Diagnostic radioactive procedure has taken place, with no further precautions necessary other than routine body substance precautions. More information regarding radiation safety can be found using this link: [email or web address] SIGNATURE: RT Deonna(R) PATIENT NAME: Pat Sorto DATE: October 26, 2024 TIME: 9:47 AM PAGER/CONTACT #: [facility] 10-22-2024 Note HNO ID: [id number] Author: NOE JACKSON PTA Service: ? Author Type: Reinforcer Type: Progress Notes Filed: 10/22/2024 15:55 Note Text: Episode Visit Count: 9 Therapist That Will Accept/Oversee The Plan Of Care: Milagros Brown PT Start of Care Date: 08/27/24 Onset Date: 05/18/24 (diagnosed with breast cancer 2018, subsequent mastectomy) Plan of Care Certification Date: 10/07/24 Next Certification Due Date: 12/07/24 Patient Identified by Name and Date of : Yes REHABILITATION AND SPORTS THERAPY PHYSICAL THERAPY TREATMENT NOTE ASSESSMENT: Pat Sorto tolerated the session with no issues. She demonstrated improvements in volume measurement at 36 cm above wrist which was down by 1cm compared to previous progress note. We discussed wearing her sleeve and glove throughout her waking hours. The patient will continue to benefit from ongoing skilled physical therapy to progress toward set goals. PLAN FOR NEXT VISIT: Continue with MLD; follow up on sleeve and glove wear SUBJECTIVE: Her arm felt good after yesterday's session. Is able to close her hand a little bit better. Her forearm and wrist are still very tight. Pain: Pain Pain Level: 5 Pain Location: Upper Arm - Left Description: Tightness Post Treatment Pain Post Treatment Pain Level: Better Post Treatment Pain Location: Upper Arm - Left OBJECTIVE MEASURES WITH LEVEL OF FUNCTION: Measured 16cm above wrist at 33 cm -- no change from last reassessment Measured 36cm above wrist at 40.5 cm -- down 1 cm from last reassessment TREATMENT: Manual Therapy: 1: L UE MLD: Supraclavicular LN -- Superficial abdominals -- R axillary L-- inter-axillary anastomoses -- L inguinal LN -- axillo-inguinal anastomoses -- L shoulder/rotators -- L upper arm medial to lateral drainage emphasis -- elbow -- anterior/posterior forearm -- L wrist/hand --fingers -- follow up 2: Fit with new sleeve and older sleeve to determine best fit at this point in time for pt reduction without causing pain Skilled Intervention: Manual skills to improve joint mobility, ROM, and decrease pain. Utilized anatomy knowledge of the clinician, and assessment of patient's response to intervention. Self-Senior Care Management: 1: Education on wearing sleeve for 6 hours per day or longer if tolerated along with glove; not to wear in the evenings or to bed. Education on wearing the glove without the sleeve is okay but not the sleeve without the glove for long time periods. Skilled Intervention: Skilled judgment in the selection of proper modification for activity of daily living/home management based on clinical presentation, deficits, and needs. Reviewed patient specific diagnosis in relation to activities of daily living/home management. Billing Manual TherapyTreatment Minutes: 34 Self-Care/Home Management Treatment Minutes: 8 Skilled Treatment Time Minutes (timed and untimed codes): 42 Total Session Time (minutes): 42 Session Start Time : 1426 Session Stop Time : 1508 Noe RobbylindenCLIFF [facility] 10-22[facility] History of Present illness Narrative Episode Visit Count: 9 Therapist That Will Accept/Oversee The Plan Of Care: Milagros Brown PT Start of Care Date: 08/27/24 Onset Date: 05/18/24 (diagnosed with breast cancer 2018, subsequent mastectomy) Plan of Care Certification Date: 10/07/24 Next Certification Due Date: 12/07/24 Patient Identified by Name and Date of : Yes REHABILITATION AND SPORTS THERAPY PHYSICAL THERAPY TREATMENT NOTE ASSESSMENT: Pat Sorto tolerated the session with no issues. She demonstrated improvements in volume measurement at 36 cm above wrist which was down by 1cm compared to previous progress note. We discussed wearing her sleeve and glove throughout her waking hours. The patient will continue to benefit from ongoing skilled physical therapy to progress toward set goals. PLAN FOR NEXT VISIT: Continue with MLD; follow up on sleeve and glove wear SUBJECTIVE: Her arm felt good after yesterday's session. Is able to close her hand a little bit better. Her forearm and wrist are still very tight. Pain: Pain Pain Level: 5 Pain Location: Upper Arm - Left Description: Tightness Post Treatment Pain Post Treatment Pain Level: Better Post Treatment Pain Location: Upper Arm - Left OBJECTIVE MEASURES WITH LEVEL OF FUNCTION: Measured 16cm above wrist at 33 cm -- no change from last reassessment Measured 36cm above wrist at 40.5 cm -- down 1 cm from last reassessment TREATMENT: Manual Therapy: 1: L UE MLD: Supraclavicular LN -- Superficial abdominals -- R axillary L-- inter-axillary anastomoses -- L inguinal LN -- axillo-inguinal anastomoses -- L shoulder/rotators -- L upper arm medial to lateral drainage emphasis -- elbow -- anterior/posterior forearm -- L wrist/hand --fingers -- follow up 2: Fit with new sleeve and older sleeve to determine best fit at this point in time for pt reduction without causing pain Skilled Intervention: Manual skills to improve joint mobility, ROM, and decrease pain. Utilized anatomy knowledge of the clinician, and assessment of patient's response to intervention. Self-Senior Care Management: 1: Education on wearing sleeve for 6 hours per day or longer if tolerated along with glove; not to wear in the evenings or to bed. Education on wearing the glove without the sleeve is okay but not the sleeve without the glove for long time periods. Skilled Intervention: Skilled judgment in the selection of proper modification for activity of daily living/home management based on clinical presentation, deficits, and needs. Reviewed patient specific diagnosis in relation to activities of daily living/home management. Billing Manual TherapyTreatment Minutes: 34 Self-Care/Home Management Treatment Minutes: 8 Skilled Treatment Time Minutes (timed and untimed codes): 42 Total Session Time (minutes): 42 Session Start Time : 1426 Session Stop Time : 1508 Noe Jackson PTA documented in this encounter [facility] 10-21-2024 Note HNO ID: [id number] Author: NOE JACKSON PTA Service: ? Author Type: Reinforcer Type: Progress Notes Filed: 10/21/2024 16:37 Note Text: Episode Visit Count: 8 Therapist That Will Accept/Oversee The Plan Of Care: Milagros Brown PT Start of Care Date: 08/27/24 Onset Date: 05/18/24 (diagnosed with breast cancer 2017, subsequent mastectomy) Plan of Care Certification Date: 10/07/24 Next Certification Due Date: 12/07/24 Patient Identified by Name and Date of : Yes REHABILITATION AND SPORTS THERAPY PHYSICAL THERAPY TREATMENT NOTE ASSESSMENT: Pat Sorto tolerated the session with expected muscle soreness. She demonstrated improvements in tightness and UE mobility post MLD. Recommended that pt try to put her sleeve on once she gets home if it is comfortable. The patient will continue to benefit from ongoing skilled physical therapy to progress toward set goals. PLAN FOR NEXT VISIT: Continue with MLD; bandaging trial SUBJECTIVE: Saw doctor last week, is supposed to have the dye procedure scheduled. Has not heard from the scheduler conveyor yet. Her arm is not worse. Is on antibiotics for two more days. Sees doctor Saturday to follow up on UTI infection. Pain: Pain Pain Location: Upper Arm - Left, Chest - Left Description: Tightness Post Treatment Pain Post Treatment Pain Level: Better Post Treatment Pain Location: Upper Arm - Left, Chest - Left OBJECTIVE MEASURES WITH LEVEL OF FUNCTION: Pt arrives to clinic in no acute distress. Redness at upper aspect of L UE is decreased since last visit. TREATMENT: Manual Therapy: 1: L UE MLD: Supraclavicular LN -- Superficial abdominals -- R axillary L-- inter-axillary anastomoses -- L inguinal LN -- axillo-inguinal anastomoses -- L shoulder/rotators -- L upper arm medial to lateral drainage emphasis -- elbow -- anterior/posterior forearm -- L wrist/hand --fingers -- follow up Skilled Intervention: Manual skills to improve joint mobility, ROM, and decrease pain. Utilized anatomy knowledge of the clinician, and assessment of patient's response to intervention. Billing Manual TherapyTreatment Minutes: 45 Skilled Treatment Time Minutes (timed and untimed codes): 45 Total Session Time (minutes): 45 Session Start Time : 1545 Session Stop Time : 1630 Noe Jackson [facility] 10-21-2024 History of Present illness Narrative Episode Visit Count: 8 Therapist That Will Accept/Oversee The Plan Of Care: Milagros Brown PT Start of Care Date: 08/27/24 Onset Date: 05/18/24 (diagnosed with breast cancer 2018, subsequent mastectomy) Plan of Care Certification Date: 10/07/24 Next Certification Due Date: 12/07/24 Patient Identified by Name and Date of : Yes REHABILITATION AND SPORTS THERAPY PHYSICAL THERAPY TREATMENT NOTE ASSESSMENT: Pat Sorto tolerated the session with expected muscle soreness. She demonstrated improvements in tightness and UE mobility post MLD. Recommended that pt try to put her sleeve on once she gets home if it is comfortable. The patient will continue to benefit from ongoing skilled physical therapy to progress toward set goals. PLAN FOR NEXT VISIT: Continue with MLD; bandaging trial SUBJECTIVE: Saw doctor last week, is supposed to have the dye procedure scheduled. Has not heard from the scheduler conveyor yet. Her arm is not worse. Is on antibiotics for two more days. Sees doctor Saturday to follow up on UTI infection. Pain: Pain Pain Location: Upper Arm - Left, Chest - Left Description: Tightness Post Treatment Pain Post Treatment Pain Level: Better Post Treatment Pain Location: Upper Arm - Left, Chest - Left OBJECTIVE MEASURES WITH LEVEL OF FUNCTION: Pt arrives to clinic in no acute distress. Redness at upper aspect of L UE is decreased since last visit. TREATMENT: Manual Therapy: 1: L UE MLD: Supraclavicular LN -- Superficial abdominals -- R axillary L-- inter-axillary anastomoses -- L inguinal LN -- axillo-inguinal anastomoses -- L shoulder/rotators -- L upper arm medial to lateral drainage emphasis -- elbow -- anterior/posterior forearm -- L wrist/hand --fingers -- follow up Skilled Intervention: Manual skills to improve joint mobility, ROM, and decrease pain. Utilized anatomy knowledge of the clinician, and assessment of patient's response to intervention. Billing Manual TherapyTreatment Minutes: 45 Skilled Treatment Time Minutes (timed and untimed codes): 45 Total Session Time (minutes): 45 Session Start Time : 1545 Session Stop Time : 1630 Noe Jackson PTA documented in this encounter [facility] 10-15-2024 Instructions Mino Beard APRN.PLATEN GRINDER - 10/15/2024 4:12 PM EDT - Continue your manual lymphatic drainage at home as taught--gently massage your arm to keep fluid moving, but avoid aggressive pressure. - Wear your compression garment every day and start using the compression pump as soon as it arrives to help reduce swelling. - If applying a warm or cold compress feels soothing, you may use it, but it isn t required for lymphedema control. - During air travel, keep your compression garment on and perform brief manual drainage sessions on the plane to counteract pressure changes. - Expect a call from Giana, the surgical instrument repair specialist, to set up your indocyanine green (ICG) lymphatic imaging--appointments are usually on Saturday mornings or Tuesdays at the main campus. You ll receive a reminder about one week before your test. - After your ICG test, schedule a follow-up appointment with Dr. Marcelino in 1-2 weeks to review the results and discuss next steps, which may include: - Liposuction to remove fibrotic (hard) tissue in your arm - A second procedure to reconnect lymphatic channels to your veins - Resume your lymphedema therapy sessions--your physical therapist will restart manual drainage this Saturday. - Continue care with your primary provider for your E. coli UTI and finish the antibiotic course as prescribed. - Remember that lymphedema is a chronic condition requiring ongoing management with therapy, compression, and, when needed, surgical support. documented in this encounter [facility] 10-15-2024 Note [facility] 10-15-2024 History of Present illness Narrative Plastic Surgery Post Op Note CC: post op HPI: Pat Sorto is a 64 year old female who presents s/p Date of Surgery: 05/18/2024 Surgery: Left Breast Total Capsulectomy and Implant Removal Time Postop: 5 months Last Office Visit: She has significant left upper extremity lymphedema which goes to her hand and makes holding a golf club difficult. She has not started compression yet. I discussed the importance of proper therapy. I will have her see Palomo for measurements and ICG and look to do a LVB. Lymphedema: - Noted worsening lymphedema in the right arm. - Currently undergoing lymphedema therapy at home, including manual lymphatic drainage. - Temporarily paused therapy due to recent cellulitis; plans to resume next week. - Using compression garments; awaiting delivery of a new compression garment and a compression pump. - Inquiring about the use of hot or cold compresses to manage swelling. - Expresses concern about fibrosis and its impact on fluid movement. Breast Cancer: - Underwent a lymphatic bypass during mastectomy in 2018. - Asks if the bypass may have failed, leading to current lymphedema. UTI: - Persistent UTI for over a month, identified as E. coli. - Managed by primary care provider; last seen 2 days ago. - Questions if the UTI could have contributed to the cellulitis in the right arm. 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 Husam Hart in [place] PAST SURGICAL HISTORY Procedure Laterality Date ARTHRP ACETBLR/PROX FEM PROSTC AGRFT/ALGRFT Right 03/20/2019 Hip replacement, total ARTHRP KNE CONDYLE&PLATU MEDIAL&LAT COMPARTMENTS Left 02/2016 BIOPSY BREAST OPEN INCISIONAL Left 2007 [facility] benign pathology per patient BREAST RECONSTRUCTION Left 2019 fat graft/implant exchange DELIVERY ONLY 1996,1993 , low transverse MASTECTOMY HX Left 2017 AND with immediate reconstruction MASTECTOMY, SIMPLE, COMPLETE Left 05/18/2024 removal of implant, WLE of chest wall PAST SURGICAL HISTORY OF 2022 bronchoscopy Current Outpatient Medications on File Prior to Visit Medication Sig metoprolol succinate ER (TOPROL XL) 25 mg 24 hr tablet take 1 tablet by mouth once daily spironolactone (ALDACTONE) 25 mg tablet Take 1 tablet by mouth once daily. exemestane (AROMASIN) 25 mg tablet Take 1 tablet by mouth once daily. losartan (COZAAR) 100 mg tablet Take 1 tablet by mouth every afternoon. insulin glargine (LANTUS SOLOSTAR U-100 INSULIN) 100 unit/mL (3 mL) Inject 20 Units subcutaneously every morning. LORazepam (ATIVAN) 0.5 mg Take 1 tablet by mouth three times a day as needed for up to 90 days. DROPLET PEN NEEDLE 31 gauge x 3/16 1 Each two times a day. ursodiol (LEENA) 250 mg tablet Take 250 mg by mouth two times a day. everolimus, antineoplastic, (AFINITOR) 10 mg tablet TAKE 1 TABLET ONCE DAILY Sodium Fluoride, Dental Rinse, 0.2 % SWISH 10 ML BY MOUTH THEN SPIT ONCE WEEKLY diphenhydrAMINE-Acetaminophen (TYLENOL PM EXTRA STRENGTH) 25-500 mg tab Take 1 tablet by mouth at bedtime as needed. AquacueTOUCH ULTRA PLUS TEST strp 1 Each two times a day. E11.65; No insulin Lancets Use with blood glucose test two times a day. Insulin Dep? No blood sugar diagnostic (BLOOD GLUCOSE TEST) test strip Use with blood glucose test two times a day. Insulin Dep? No aspirin, enteric coated (ASPIRIN, ENTERIC COATED) 81 mg EC tablet Take 81 mg by mouth once daily. pantoprazole DR (PROTONIX) 40 mg tablet Take 40 mg by mouth daily before breakfast. ascorbic acid, vitamin C, (VITAMIN C) 500 mg tablet Take 500 mg by mouth once daily. alpha tocopheryl acetate (VITAMIN E) 400 unit capsule Take 400 Units by mouth once daily. cyanocobalamin (VITAMIN B-12) 1,000 mcg tab Take 500 mcg by mouth once daily. VITAMIN D 50,000 unit capsule 1 capsule one time a week. CALCIUM CARBONATE (CALCIUM 500 ORAL) Take 1 tablet by mouth once daily. No current facility-administered medications on file prior to visit. There were no vitals taken for this visit. PE Alert and oriented in NAD on room air Left breast flat closure, no fluid palpated on exam today Incisions c/d/I Swelling/lymphedema of left arm and hand ASSESSMENT/PLAN: 1. History of breast reconstruction (Z98.890) 2. History of breast cancer (Z85.3) 3. Lymphedema (I89.0) - Lymphedema in the left upper limb with fibrosis noted on examination; patient is currently undergoing manual lymphatic drainage (MLD) therapy. - Discussed the need for Indocyanine Green (ICG) lymphography to assess lymphatic flow and identify any disruptions. - Explained the ICG procedure, including subdermal injection of fluorescent dye in three spots (two on the top of the hand, one on the back of the wrist) to visualize lymphatic drainage. - Scheduled ICG lymphography; surgical instrument repair specialist Giana will contact the patient to arrange the appointment, preferably on a Saturday or Saturday at the main campus. - Discussed potential surgical interventions based on ICG findings, including liposuction to remove fibrotic tissue and possible lymphaticovenular anastomosis to reroute lymphatic channels. - Advised continuation of MLD, compression garments, and use of a compression pump to manage symptoms. - Patient is planning to travel to [facility] in five weeks; advised maintaining compression and performing gentle manual drainage during flights to mitigate effects of air pressure changes on lymphatic function. - Follow-up appointment with Dr. Marcelino to discuss ICG results and next steps in management. 4. Cellulitis of left upper limb (L03.114) - Recent episode of cellulitis in the left upper limb; patient is currently on antibiotics. - Advised gentle manual lymphatic drainage to prevent further spread of infection. - Discussed potential link between ongoing E. coli UTI and exacerbation of lymphedema symptoms due to lymphatic system stress. - Patient is under the care of her primary care physician for UTI management. Return to clinic for ICG procedure- will message Giana to get scheduled Mino Beard APRN.CNP October 15, 2024 documented in this encounter [facility] 10-15-2024 Note HNO ID: [id number] Author: NOE JACKSON PTA Service: ? Author Type: Reinforcer Type: Progress Notes Filed: 10/15/2024 16:31 Note Text: Episode Visit Count: 7 Therapist That Will Accept/Oversee The Plan Of Care: Milagros Brown PT Start of Care Date: 08/27/24 Onset Date: 05/18/24 (diagnosed with breast cancer 2018, subsequent mastectomy) Plan of Care Certification Date: 10/07/24 Next Certification Due Date: 12/07/24 Patient Identified by Name and Date of : Yes REHABILITATION AND SPORTS THERAPY PHYSICAL THERAPY TREATMENT NOTE ASSESSMENT: Pat Sorto tolerated the session with increased symptoms and expected muscle soreness. She demonstrated increased tightness and tenderness at lateral region of chest, and inferior aspect of chest/pec region with palpation this date. Continued to hold on MLD this date as pt has only been on antibiotics a couple of days and has not noticed a change in symptoms. Will resume MLD at next visit as long as symptoms are not worse. Pt aware to not wear compression at this time until symptoms begin to resolve. The patient will continue to benefit from ongoing skilled physical therapy to progress toward set goals. PLAN FOR NEXT VISIT: Resume MLD; manual techniques to dec tightness. SUBJECTIVE: Saw the doctor after last therapy appointment, gave her a new antibiotic, they believe it is cellulitis. She started the new medication twice a day for two days now. She hasn't been wearing her compression sleeve. Unsure if it is any different since starting the medication. Pain: Pain Pain Level: 5 Pain Location: Upper Arm - Left, Chest - Left Description: Tenderness Post Treatment Pain Post Treatment Pain Level: Better Post Treatment Pain Location: Upper Arm - Left, Chest - Left OBJECTIVE MEASURES WITH LEVEL OF FUNCTION: Redness located at L medial and upper arm is less compared to previous session prior to new antibiotic use. TREATMENT: Manual Therapy: 3: TPR, sustained pressure and gentle STM to L pec and chest region 4: PROM L UE ER/IR, scaption, ABD and flexion Skilled Intervention: Manual skills to improve joint mobility, ROM, and decrease pain. Utilized anatomy knowledge of the clinician, and assessment of patient's response to intervention. Billing Manual TherapyTreatment Minutes: 34 Skilled Treatment Time Minutes (timed and untimed codes): 34 Total Session Time (minutes): 34 Session Start Time : 1033 Session Stop Time : 1107 Noe Jackson [facility] 10-15-2024 History of Present illness Narrative Episode Visit Count: 7 Therapist That Will Accept/Oversee The Plan Of Care: Milagros Brown PT Start of Care Date: 08/27/24 Onset Date: 05/18/24 (diagnosed with breast cancer 2017, subsequent mastectomy) Plan of Care Certification Date: 10/07/24 Next Certification Due Date: 12/07/24 Patient Identified by Name and Date of : Yes REHABILITATION AND SPORTS THERAPY PHYSICAL THERAPY TREATMENT NOTE ASSESSMENT: Pat Sorto tolerated the session with increased symptoms and expected muscle soreness. She demonstrated increased tightness and tenderness at lateral region of chest, and inferior aspect of chest/pec region with palpation this date. Continued to hold on MLD this date as pt has only been on antibiotics a couple of days and has not noticed a change in symptoms. Will resume MLD at next visit as long as symptoms are not worse. Pt aware to not wear compression at this time until symptoms begin to resolve. The patient will continue to benefit from ongoing skilled physical therapy to progress toward set goals. PLAN FOR NEXT VISIT: Resume MLD; manual techniques to dec tightness. SUBJECTIVE: Saw the doctor after last therapy appointment, gave her a new antibiotic, they believe it is cellulitis. She started the new medication twice a day for two days now. She hasn't been wearing her compression sleeve. Unsure if it is any different since starting the medication. Pain: Pain Pain Level: 5 Pain Location: Upper Arm - Left, Chest - Left Description: Tenderness Post Treatment Pain Post Treatment Pain Level: Better Post Treatment Pain Location: Upper Arm - Left, Chest - Left OBJECTIVE MEASURES WITH LEVEL OF FUNCTION: Redness located at L medial and upper arm is less compared to previous session prior to new antibiotic use. TREATMENT: Manual Therapy: 3: TPR, sustained pressure and gentle STM to L pec and chest region 4: PROM L UE ER/IR, scaption, ABD and flexion Skilled Intervention: Manual skills to improve joint mobility, ROM, and decrease pain. Utilized anatomy knowledge of the clinician, and assessment of patient's response to intervention. Billing Manual TherapyTreatment Minutes: 34 Skilled Treatment Time Minutes (timed and untimed codes): 34 Total Session Time (minutes): 34 Session Start Time : 1033 Session Stop Time : 1107 Noe Jackson PTA documented in this encounter [facility] 10-14-2024 History of Present illness Narrative OFFICE VISIT PROGRESS NOTE CC Pat Sorto is a 64 year old who presents today for blood sugar review, insulin dose review, adjust. HPI Diagnosed with diabetes mellitus type , ~ 2023 Last endocrine OV 04/15/2024 Some elements copied from my note 04/15/2024 which have been updated where appropriate, and all reflect current medical decision making from date of this visit. HPI 10/14/2024 E COLI UTI, x 1 month, 4th different atx Then cellulitis L arm Is going to be seeing PharmD Was in [place], a lot of walking, different diet Sugars are much improved Using chemo daily, breast ca treatment Sts this medication is raising her blood sugars Is still walking, but not as much Gets fatigued very easily CURRENT DM MEDS LANTUS 30 units daily (adjusted by PCP September 08, 2024) OZEMPIC for 7 weeks - GI issues METFORMIN noat tolerated SMBG Type of Monitor: Other Frequency of Monitorin times a day did not bring glucometer - reports BG Values: Breakfast: 125-130 Lunch: Dinner: Bed-time: Values over past week: Highest ; Lowest Hypoglycemia: no Diet: No specific diet regimen Exercise: none DM REVIEW OF SYSTEMS Last Eye Exam : 11/2023 Last Podiatry Exam: Cardiorespiratory: negative, denies chest pain, pressure Claudication: no Dyslipidemia: No High Blood Pressure: No CURRENT LAB Latest Ref Rng 07/08/2024 09/22/2024 Glucose 74 - 99 mg/dL 199 (H) BUN 7 - 21 mg/dL 62 (H) Creatinine 0.58 - 0.96 mg/dL 1.96 (H) Sodium 136 - 144 mmol/L 136 Potassium 3.7 - 5.1 mmol/L 3.6 (L) Chloride 98 - 107 mmol/L 101 CO2 22 - 30 mmol/L 24 Anion Gap 8 - 15 mmol/L 11 eGFR >=60 mL/min/1.73m 28 (L) Total Cholesterol, Nonfasting <200 mg/dL 231 (H) Triglycerides, Nonfasting <150 mg/dL 491 (H) HDL Cholesterol, Nonfasting >39 mg/dL 29 (L) LDL Cholesterol Calculated, Nonfasting <100 mg/dL 116 (H) Non HDL Cholesterol, Nonfasting <130 mg/dL 202 (H) VLDL Cholesterol, Nonfasting <30 mg/dL 87 (H) Total Chol/HDL Ratio, Nonfasting <5.10 mg/dL 7.97 (H) LDL/HDL Ratio, Nonfasting <2.54 mg/dL 4.00 (H) Creatinine, Ur Random (UCRR) 20.0 - 300.0 mg/dL 245.1 Albumin, Urine Random mg/L 209.8 Albumin/Creat Ratio <30 mg/g 86 (H) Hemoglobin A1C 4.3 - 5.6 % 6.8 (H) 7.7 (H) Estimated Average Glucose mg/dL 148 174 Recent Labs 06/12/17 1529 06/27/17 1637 02/23/19 1018 03/18/19 0913 03/18/24 1352 04/10/24 0846 06/03/24 1539 07/08/24 1119 07/08/24 1124 08/04/24 1100 09/01/24 1134 09/22/24 1453 09/22/24 1458 ALT -- < > 10 < > -- < > -- 12 -- 13 -- AST -- < > 15 < > -- < > -- -- -- UCRR -- -- -- -- -- -- -- -- 143.0 -- -- -- 245.1 UALBR -- -- -- -- -- -- -- -- 86.8 -- -- -- 209.8 UALBCR -- -- -- -- -- -- -- -- 61* -- -- -- 86* TSH -- -- -- -- -- -- 2.770 -- -- -- -- -- -- TPROT -- < > 7.1 < > -- < > -- 7.7 -- 7.4 7.3 6.6 -- ALB -- < > 4.1 < > -- < > -- 4.1 -- 4.0 4.0 3.8* -- CA -- < > 9.5 < > -- < > 10.1 9.6 -- 9.3 9.6 9.5 -- TBILI -- < > 0.3 < > -- < > -- 0.3 -- 0.3 0.2 0.3 -- ALKPHOS -- < > 71 < > -- < > -- 70 -- 67 66 57 -- GLUC -- < > 100* < > -- < > 103* 216* -- 150* 261* 199* -- BUN -- < > 23* < > -- < > 27* 45* -- 30* 44* 62* -- CREAT -- < > 0.91 < > -- < > 1.15* 1.16* -- 1.06* 1.47* 1.96* -- NA -- < > 139 < > -- < > 142 135* -- 141 138 136 -- K -- < > 3.6* < > -- < > 4.0 4.0 -- 4.1 4.1 3.6* -- CHLOR -- < > 105 < > -- < > 104 99 -- 105 102 101 -- CO2 -- < > 27 < > -- < > 27 28 -- 27 23 24 -- ANION -- < > 7* < > -- < > 11 8 -- 9 13 11 -- EGFROTH -- < > >60 < > -- < > 53* 52* -- 58* 39* 28* -- HBA1C -- < > -- < > 7.2* -- -- 6.8* -- -- -- 7.7* -- B12 >2,000* -- 1,468* -- -- -- -- -- -- -- -- -- -- < > = values in this interval not displayed. Recent Labs 06/12/17 1529 05/20/18 0904 10/07/18 1012 02/23/19 1018 02/19/22 0957 03/11/23 1144 07/16/23 1145 08/08/23 0845 11/11/23 0843 03/18/24 1352 07/08/24 1119 09/22/24 1453 TG -- < > 151* -- -- -- < > 230* 250* -- 230* 491* CHOL -- < > 167 -- -- -- < > 237* 202* -- 247* 231* HDL -- < > 34* -- -- -- < > 35* 27* -- 39* 29* VLDL -- < > 30* -- -- -- < > 46* 50* -- 46* 87* LDL -- < > 103* -- -- -- < > 156* 125* -- 162* 116* FASTTIME -- -- 12 -- -- -- -- 11 -- -- -- TCHDL -- < > 4.91 -- -- -- < > 6.77* 7.48* -- 6.33* 7.97* LDLHDL -- < > 3.03* -- -- -- < > 4.46* 4.63* -- 4.15* 4.00* NONHDL -- < > 133* -- -- -- < > 202* 175* -- 208* 202* HBA1C -- < > 5.6 -- < > 6.1* < > -- -- 7.2* 6.8* 7.7* HBA0 -- < > 114 -- -- 128 -- -- -- -- 148 174 B12 >2,000* -- -- 1,468* -- -- -- -- -- -- -- -- < > = values in this interval not displayed. 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 Husam Hart in [place] PAST SURGICAL HISTORY Procedure Laterality Date ARTHRP ACETBLR/PROX FEM PROSTC AGRFT/ALGRFT Right 03/20/2019 Hip replacement, total ARTHRP KNE CONDYLE&PLATU MEDIAL&LAT COMPARTMENTS Left 02/2016 BIOPSY BREAST OPEN INCISIONAL Left 2007 [facility] benign pathology per patient BREAST RECONSTRUCTION Left 2019 fat graft/implant exchange DELIVERY ONLY 1996,1993 , low transverse MASTECTOMY HX Left 2018 AND with immediate reconstruction MASTECTOMY, SIMPLE, COMPLETE Left 05/18/2024 removal of implant, WLE of chest wall PAST SURGICAL HISTORY OF 2022 bronchoscopy FAMILY HISTORY Problem Relation Age of Onset Diabetes Mother Heart disease Mother Diabetes Father Hypertension Sister Hypertension Brother twin No Known Problems Son No Known Problems Son Hearing Loss Maternal Grandmother Heart disease Maternal Grandmother other (Lung Cancer) Maternal Grandfather smoker Diabetes Paternal Grandmother other (Lung Cancer) Paternal Grandfather smoker Anesthesia Problems No Family History Social History Tobacco Use Smoking status: Never Smokeless tobacco: Never Vaping Use Vaping status: Never Used Substance Use Topics Alcohol use: Yes Comment: 2 drinks per month Drug use: No Current Outpatient Medications Medication Sig cefUROXime (CEFTIN) 500 mg tablet Take 1 tablet by mouth two times a day for 10 days. insulin glargine (LANTUS SOLOSTAR U-100 INSULIN) 100 unit/mL (3 mL) Inject 30 Units subcutaneously every morning. DROPLET PEN NEEDLE 31 gauge x 3/16 1 each two times a day. hydroCHLOROthiazide 25 mg tablet Take 25 mg by mouth once daily. amLODIPine (NORVASC) 5 mg tablet Take 5 mg by mouth once daily. traZODone (DESYREL) 50 mg tablet Take 1 tablet by mouth daily at bedtime. metoprolol succinate ER (TOPROL XL) 25 mg 24 hr tablet take 1 tablet by mouth once daily exemestane (AROMASIN) 25 mg tablet Take 1 tablet by mouth once daily. losartan (COZAAR) 100 mg tablet Take 1 tablet by mouth every afternoon. ursodiol (LEENA) 250 mg tablet Take 250 mg by mouth two times a day. everolimus, antineoplastic, (AFINITOR) 10 mg tablet TAKE 1 TABLET ONCE DAILY Sodium Fluoride, Dental Rinse, 0.2 % SWISH 10 ML BY MOUTH THEN SPIT ONCE WEEKLY diphenhydrAMINE-Acetaminophen (TYLENOL PM EXTRA STRENGTH) 25-500 mg tab Take 1 tablet by mouth at bedtime as needed. ONETOUCH ULTRA PLUS TEST strp 1 Each two times a day. E11.65; No insulin Lancets Use with blood glucose test two times a day. Insulin Dep? No blood sugar diagnostic (BLOOD GLUCOSE TEST) test strip Use with blood glucose test two times a day. Insulin Dep? No aspirin, enteric coated (ASPIRIN, ENTERIC COATED) 81 mg EC tablet Take 81 mg by mouth once daily. pantoprazole DR (PROTONIX) 40 mg tablet Take 40 mg by mouth daily before breakfast. ascorbic acid, vitamin C, (VITAMIN C) 500 mg tablet Take 500 mg by mouth once daily. alpha tocopheryl acetate (VITAMIN E) 400 unit capsule Take 400 Units by mouth once daily. cyanocobalamin (VITAMIN B-12) 1,000 mcg tab Take 500 mcg by mouth once daily. VITAMIN D 50,000 unit capsule 1 capsule one time a week. CALCIUM CARBONATE (CALCIUM 500 ORAL) Take 1 tablet by mouth once daily. No current facility-administered medications for this visit. ALLERGIES Allergen Reactions Amoxicillin Rash rash arms trunk neck face, itching Chills Tolerates Ancef REVIEW OF SYSTEMS - POSITIVES IN BOLD GENERAL:No weight loss, malaise or fevers HEENT:Negative for frequent or significant headaches, No changes in hearing or vision, no nose bleeds or other nasal problems NECK:Negative for lumps, goiter, pain and significant neck swelling RESPIRATORY: Negative for cough, hemoptysis, wheezing, COPD, dyspnea or shortness of breath CARDIOVASCULAR: Negative for chest pain, leg swelling, hypertension, CHF or palpitations PHYSICAL EXAMINATION: BP 110/64 (BP Site: Right Arm, BP Position: Sitting, BP Cuff Size: Regular Adult) Pulse 84 Resp 17 Ht 166.4 cm (5' 5.5) Wt 81.9 kg (180 lb 9.6 oz) SpO2 96% BMI 29.60 kg/m GENERAL: alert and appropriate, in no distress, well-hydrated, well nourished, and appears tired SKIN: no rash noted HEAD: normocephalic, no abnormality or lesion noted EYES: pupil sizes are equal NECK: no obvious neck swelling or mass ACANTHOSIS: none noted EXTREMITIES: no edema NEUROLOGIC: no facial droop, speech is clear and fluent and no obvious deficit ASSESSMENT/PLAN (E11.9, Z79.4) Diabetes mellitus treated with insulin (HCC) (primary encounter diagnosis) Comment: Patient has currently active UTI and cellulitis, is on antibiotic therapy Drinks about 60 oz of water daily Discussed increase to 1/2 body weight, 90 oz of liquids daily NO diet pop. Will keep current dosing of basal, recently increased by PCP office, patient is reporting well controlled morning sugars Does not check except morning She will follow with PharmD once monthly No changes at this time Recommend see ENDO INSULATION SUPERVISOR, patient is interested ENDOCRINOLOGY INSULATION SUPERVISOR ORDER placed for patient Recommended diet: Low carbohydrate and Low saturated fat, low simple sugar, high fiber diet Exercise minimally 150 minutes per week, increase as tolerated. Adequate hydration - 1/2 body wgt in oz of water daily, unless fluid restriction applies. I instructed the patient to monitor blood sugars 4 times per day If blood sugars are persistently high or low, to call our office. Patient to continue to follow up with her PCP and with other consultants regarding her other medical problems. Plan: COMPREHENSIVE METABOLIC PANEL, LIPID PANEL, NONFASTING, ALBUMIN/CREATININE RATIO, URINE, HEMOGLOBIN A1C Daisy Titus CNP documented in this encounter [facility] 10-14-2024 Note [facility] 10-13-2024 Note [facility] 10-13-2024 History of Present illness Narrative SUBJECTIVE Pat Sorto is a 64 year old female here today for acute concern. Chief Complaint Patient presents with: Edema HPI Pat Sorto is a 64-year-old female with a history of lymphedema and recurrent UTIs, presenting with concerns about worsening lymphedema and a persistent E. coli UTI. Pat reports several months of left arm lymphedema, which has worsened over the past 2 months. She notes increased swelling, warmth, and a rash on the left arm, which she initially thought might be due to her compression sleeve, but the rash persists even when the sleeve is not worn. She also observes discoloration and tightness in the arm and is experiencing difficulty gripping objects and loss of mobility. She denies similar symptoms in the right arm. Pat underwent surgery in May to remove an implant and had four lymph nodes removed from the left axillary region in 2018. She has not had issues with swelling until the past 2 months. She is currently undergoing physical therapy but was advised to pause therapy on the left arm until the infection is cleared. Pat also reports a persistent E. coli UTI, confirmed by a urine test last week. She has been on multiple antibiotic courses, including Cipro and Macrobid, but the infection has not resolved. She expresses concern about the infection spreading to other organs. She experiences nocturia but denies dysuria. She feels tired and run down and notes that her immune system is suppressed due to cancer medication. Her medications were reviewed today and her list is now up to date. Medications Current Outpatient Medications Medication Sig insulin glargine (LANTUS SOLOSTAR U-100 INSULIN) 100 unit/mL (3 mL) Inject 30 Units subcutaneously every morning. DROPLET PEN NEEDLE 31 gauge x 3/16 1 each two times a day. hydroCHLOROthiazide 25 mg tablet Take 25 mg by mouth once daily. amLODIPine (NORVASC) 5 mg tablet Take 5 mg by mouth once daily. traZODone (DESYREL) 50 mg tablet Take 1 tablet by mouth daily at bedtime. metoprolol succinate ER (TOPROL XL) 25 mg 24 hr tablet take 1 tablet by mouth once daily exemestane (AROMASIN) 25 mg tablet Take 1 tablet by mouth once daily. losartan (COZAAR) 100 mg tablet Take 1 tablet by mouth every afternoon. ursodiol (LEENA) 250 mg tablet Take 250 mg by mouth two times a day. everolimus, antineoplastic, (AFINITOR) 10 mg tablet TAKE 1 TABLET ONCE DAILY Sodium Fluoride, Dental Rinse, 0.2 % SWISH 10 ML BY MOUTH THEN SPIT ONCE WEEKLY diphenhydrAMINE-Acetaminophen (TYLENOL PM EXTRA STRENGTH) 25-500 mg tab Take 1 tablet by mouth at bedtime as needed. AquacueTOUCH ULTRA PLUS TEST strp 1 Each two times a day. E11.65; No insulin Lancets Use with blood glucose test two times a day. Insulin Dep? No blood sugar diagnostic (BLOOD GLUCOSE TEST) test strip Use with blood glucose test two times a day. Insulin Dep? No aspirin, enteric coated (ASPIRIN, ENTERIC COATED) 81 mg EC tablet Take 81 mg by mouth once daily. pantoprazole DR (PROTONIX) 40 mg tablet Take 40 mg by mouth daily before breakfast. ascorbic acid, vitamin C, (VITAMIN C) 500 mg tablet Take 500 mg by mouth once daily. alpha tocopheryl acetate (VITAMIN E) 400 unit capsule Take 400 Units by mouth once daily. cyanocobalamin (VITAMIN B-12) 1,000 mcg tab Take 500 mcg by mouth once daily. VITAMIN D 50,000 unit capsule 1 capsule one time a week. CALCIUM CARBONATE (CALCIUM 500 ORAL) Take 1 tablet by mouth once daily. doxycycline monohydrate (MONODOX) 100 mg capsule Take 1 capsule by mouth two times a day for 10 days. No current facility-administered medications for this visit. 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/2022 Class 1 Obesity Due to Excess Calories With Serious Comorbidity and Body Mass Index (Bmi) of 32.0 to 32.9 in Adult - 08/09/2022 Carcinoma of Left Breast Metastatic to Skin ([facility]) - 08/01/2022 Status Post Right Hip Replacement - 06/02/2019 Lumbar Degenerative Disc Disease - 06/02/2019 Primary Localized Osteoarthritis of Right Hip - 03/20/2019 Total Knee Replacement Status, Left - 02/23/2019 History of Radiation Therapy - 08/13/2018 Hypertension - 04/22/2018 Examination of Participant in Clinical Trial - 01/27/2018 Axillary Pain, Left - 11/21/2017 Musculoskeletal Chest Pain - 11/21/2017 Primary Biliary Cirrhosis (Hcc) - 09/24/2017 Chemotherapy-Induced Cardiomyopathy (Hcc) - 08/19/2017 Chemotherapy-Induced Neuropathy (Hcc) - 08/19/2017 Malignant Neoplasm of Left Female Breast ([facility]) - 08/15/2017 Comment: Added automatically from request for surgery [id number] Stomatitis and Mucositis - 06/28/2017 Antineoplastic Chemotherapy Induced Anemia - 06/12/2017 Malignant Neoplasm of Lower-Outer Quadrant of Left Breast of Female, Estrogen Receptor Positive (Hcc) - 04/19/2017 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 Respiratory: Negative. Cardiovascular: Negative. Genitourinary: Positive for frequency and urgency. OBJECTIVE BP 146/82 Pulse 64 Wt 179 lb 0.2 oz (81.2kg) Physical Exam Vitals and nursing note reviewed. Constitutional: General: She is awake. She is not in acute distress. Appearance: Normal appearance. She is well-developed and well-groomed. She is not ill-appearing, toxic-appearing or diaphoretic. HENT: Head: Normocephalic. Right Ear: External ear normal. Left Ear: External ear normal. Nose: Nose normal. Eyes: General: Vision grossly intact. Conjunctiva/sclera: Conjunctivae normal. Pupils: Pupils are equal, round, and reactive to light. Neck: Vascular: No JVD. Trachea: Trachea normal. Cardiovascular: Pulses: Normal pulses. Pulmonary: Effort: Pulmonary effort is normal. No accessory muscle usage, prolonged expiration or respiratory distress. Musculoskeletal: Left upper arm: Edema present. Left forearm: Edema present. Cervical back: Neck supple. Skin: General: Skin is warm and dry. Capillary Refill: Capillary refill takes less than 2 seconds. Neurological: General: No focal deficit present. Mental Status: She is alert and oriented to person, place, and time. Mental status is at baseline. Psychiatric: Attention and Perception: Attention and perception normal. Mood and Affect: Mood and affect normal. Speech: Speech normal. Behavior: Behavior normal. Behavior is cooperative. Thought Content: Thought content normal. Cognition and Memory: Cognition and memory normal. Judgment: Judgment normal. ASSESSMENT/PLAN: 1. Urinary tract infection with hematuria, site unspecified (N39.0) Recurrent UTI with E. coli, resistant to Bactrim and Cipro. Previous treatments included Cipro and Macrobid. Patient reports fatigue and nocturia, but no dysuria. - Initiated Doxycycline 100 mg PO BID for 10 days. - Educated patient on side effects of Doxycycline, including photosensitivity and potential for heartburn; advised to take with food and a full glass of water, remaining upright for at least 30 minutes post-administration. - Scheduled follow-up appointment on the for urine analysis to assess treatment efficacy. 2. Lymphedema of left arm (I89.0) Cellulitis of left upper extremity (L03.114) Lymphedema onset post-implant removal surgery in May and previous lymph node removal in 2017. Noted increased swelling, warmth, and rash on the left arm. Suspected cellulitis due to compromised immune system from cancer medication and concurrent UTI. - Initiated Doxycycline 100 mg PO BID for 10 days to address suspected cellulitis. - Advised patient to monitor for reduction in swelling, redness, and rash. - Recommended holding off on physical therapy for the left arm until improvement is noted. - Patient to call on Saturday to report progress; if no significant improvement, consider follow-up next week. Recording using [employer] software for draft documentation of the visit was discussed with the patient/authorized traffic representative; all questions welcomed and answered. Patient/authorized traffic representative agreed to proceed Portions of this note have been entered by ancillary staff. I have reviewed and when necessary edited, so that they are an adequate record of my encounter with this patient Please note that parts of this document were created using voice recognition software and therefore may contain grammatical errors. Patient verbalizes understanding of instructions from today's visit and in agreement with treatment plan. Questions answered. Agrees to call the office if questions, concerns of issues with acute symptoms not improving or if they worsen. See diagnoses and orders for additional plan(s). Allergies and medications were reviewed, list was updated, and refills given if needed. Past medical, surgical, social, and family history reviewed and updated as appropriate. Encouraged proper diet & exercise as well as compliance with taking medications. Age-appropriate health preventative measures were discussed. Return in 10 days (on 10/23/2024), or if symptoms worsen or fail to improve, for Keep next scheduled appointment.. TEZ Ugalde documented in this encounter [facility] 10-13-2024 Telephone encounter Note E. coli numbers are reduced from previous. If she wants to be checked for arm infection would recommend a visit. Would not expect a UTI to cause an arm infection. Has OV today, can discuss at OV. [facility] 10-13-2024 Miscellaneous Notes E. coli numbers are reduced from previous. If she wants to be checked for arm infection would recommend a visit. Would not expect a UTI to cause an arm infection. Has OV today, can discuss at OV. Pt called and is notified of providers results and instructions. Pt voices understanding. Pt states she finished her antibiotics. She states the only symptom she has is a little tingling when urinating. She states the test came back with he highest level of e coli yet. She states she has lymphedema in her L arm, and the PT person was asking if may the provider though she could have an infection in it, because it is kind of warm. Pt denies running a fever or any nred streaks. She states the arm is pinkish, but she does wear a compression sleeve on it, but not all the times. Pt still reports to having the fatigue which she had with the UTI. I ask the Pt if she had an open wounds on that arm or hand and she denied any, and she reports to using good hand hygiene. She was asking if the e coli could have gotten into her arm with the lymphedema. Please call and advise. Serenity Vilchis RN Labs look like she is not getting enough fluid intake. Would endorse getting 64 ounces of fluid daily. Keep appointment with nephrology. Confirm completed antibiotic. Check to see if UTI symptoms.. Creatinine Date Value Ref Range Status 10/07/2024 1.87 (H) 0.58 - 0.96 mg/dL Final 09/22/2024 1.96 (H) 0.58 - 0.96 mg/dL Final 09/01/2024 1.47 (H) 0.58 - 0.96 mg/dL Final 08/04/2024 1.06 (H) 0.58 - 0.96 mg/dL Final Patient calls and states that she had urinalysis and blood work done last week. Patient is asking about the results. Latest Ref Rng 10/07/2024 Color Yellow Yellow Clarity Clear Clear Glucose, Urine Negative Negative Bilirubin, Urine Negative Negative Ketones, Urine Negative Negative Specific [place], Ur 1.005 - 1.030 1.017 Hemoglobin/Blood,Ur Negative Trace ! pH, Urine <8.5 5.5 Protein, Urine Negative 1+ ! Urobilinogen 0.2-1.0 EU/dL 0.2 EU/dL Nitrites Negative Negative Leukest Negative 2+ ! WBC, Urine 0-5 /HPF >20 /HPF ! RBC, Urine 0-2 /HPF 3-5 /HPF ! Bacteria uL Negative uL 1,320.6 (H) Epithelial Cells /HPF None Seen Hyaline Cast 0 /LPF 1-3 /LPF ! 10/07/2024 Culture 50,000-<100,000 CFU/ml Escherichia coli ! Latest Ref Rng 10/07/2024 Protein, Total 6.3 - 8.0 g/dL 6.8 Albumin 3.9 - 4.9 g/dL 3.6 (L) Calcium 8.5 - 10.2 mg/dL 9.6 Bilirubin, Total 0.2 - 1.3 mg/dL 0.2 Alkaline Phosphatase 34 - 123 U/L 57 AST 13 - 35 U/L 19 ALT 7 - 38 U/L 10 Glucose 74 - 99 mg/dL 82 BUN 7 - 21 mg/dL 50 (H) Creatinine 0.58 - 0.96 mg/dL 1.87 (H) Sodium 136 - 144 mmol/L 139 Potassium 3.7 - 5.1 mmol/L 3.6 (L) Chloride 98 - 107 mmol/L 103 CO2 22 - 30 mmol/L 24 Anion Gap 8 - 15 mmol/L 12 eGFR >=60 mL/min/1.73m 30 (L) documented in this encounter [facility] 10-13-2024 History of Present illness Narrative Program_ID:[id number] Access Code: [email or web address] URL: [email or web address] Date: 10-13-2024 Prepared By: Bobbi Vanegas Program Notes Exercises - Supine Chest Stretch with Elbows Bent - 1 x daily - 7 x weekly - sets - 3-5 reps - Standing Single Arm Shoulder Abduction Stretch on Wall - 1 x daily - 7 x weekly - sets - 3-5 reps - Standing Single Arm Shoulder Abduction Stretch on Wall - 1 x daily - 7 x weekly - sets - 3-5 reps - Single Arm Doorway Pec Stretch at 90 Degrees Abduction - 1 x daily - 7 x weekly - 1 sets - 3 reps - Doorway Pec Stretch at 60 Degrees Abduction with Arm Straight - 1 x daily - 7 x weekly - 1 sets - 3 reps Episode Visit Count: 6 Therapist That Will Accept/Oversee The Plan Of Care: Milagros Brown PT Start of Care Date: 08/27/24 Onset Date: 05/18/24 (diagnosed with breast cancer 2017, subsequent mastectomy) Plan of Care Certification Date: 10/07/24 Next Certification Due Date: 12/07/24 Patient Identified by Name and Date of : Yes REHABILITATION AND SPORTS THERAPY PHYSICAL THERAPY TREATMENT NOTE ASSESSMENT: Pat Sorto tolerated the session with expected muscle soreness. She demonstrated decreased tenderness in L pec/chest region post manual techniques this date. Recommended patient reach out to PCP regarding her warmness feeling in the L arm as well as concern for infection. Her UE is not warm to the touch by clinician although patient notes her arm feeling warm. Did not perform MLD this date due to concern for infection. Pt agreeable to reach out to PCP today. The patient will continue to benefit from ongoing skilled physical therapy to progress toward set goals. PLAN FOR NEXT VISIT: Follow up on visit with PCP regarding potential infection in L UE. Continue with MLD if cleared by doctor. SUBJECTIVE: Her arm is really tender to touch, feels warm and hard. Has been warm for about a week. Had a UTI that developed into E coli and has been on antibiotics. Is wondering if the infection has spread to her arm. Pain: Pain Pain Location: Upper Arm - Left Description: Tenderness Additional Pain Information : Specific pain level not discussed in order to focus on movement/functional goals Post Treatment Pain Post Treatment Pain Level: Better Post Treatment Pain Location: Upper Arm - Left OBJECTIVE MEASURES WITH LEVEL OF FUNCTION: Mild redness and mild warmth at inside of L upper arm. Small raised bumps localized to dorsal aspect of forearm. Bumps are not red in nature. TREATMENT: Manual Therapy: 2: Inspection and objective measures taken for L UE and assessing skin color, signs of infection, etc. 3: TPR, sustained pressure and gentle STM to L pec and chest region 4: PROM L UE ER/IR, scaption, ABD and flexion Skilled Intervention: Manual skills to improve joint mobility, ROM, and decrease pain. Utilized anatomy knowledge of the clinician, and assessment of patient's response to intervention. Self-Senior Care Management: 1: Discussion and education regarding potential infection and why MLD is contraindicated to avoid spread of infection 2: Education on specific signs of cellulitis/infection in UE with visual aid Skilled Intervention: Skilled judgment in the selection of proper modification for activity of daily living/home management based on clinical presentation, deficits, and needs. Reviewed patient specific diagnosis in relation to activities of daily living/home management. Activity progression based on professional judgement. Home Exercise Program Assigned: 1: Access Code: [email or web address] URL: [email or web address] Date: 10/13/2024 Prepared by: SHIRLEY Posada Exercises - Supine Chest Stretch with Elbows Bent - 1 x daily - 7 x weekly - 3-5 reps - 30 sec holds hold - Standing Single Arm Shoulder Abduction Stretch on Wall - 1 x daily - 7 x weekly - 3-5 reps - 30 hold - Standing Single Arm Shoulder Abduction Stretch on Wall - 1 x daily - 7 x weekly - 3-5 reps - 30 seconds hold - Single Arm Doorway Pec Stretch at 90 Degrees Abduction - 1 x daily - 7 x weekly - 1 sets - 3 reps - 20-30 hold - Doorway Pec Stretch at 60 Degrees Abduction with Arm Straight - 1 x daily - 7 x weekly - 1 sets - 3 reps - 20-30 hold Billing Manual TherapyTreatment Minutes: 35 Self-Care/Home Management Treatment Minutes: 10 Skilled Treatment Time Minutes (timed and untimed codes): 45 Total Session Time (minutes): 45 Session Start Time : 940 Session Stop Time : 1025 Noe Jackson PTA documented in this encounter [facility] 10-13-2024 Note HNO ID: [id number] Author: NOE JACKSON PTA Service: ? Author Type: Reinforcer Type: Progress Notes Filed: 10/13/2024 11:17 Note Text: Episode Visit Count: 6 Therapist That Will Accept/Oversee The Plan Of Care: Milagros Brown PT Start of Care Date: 08/27/24 Onset Date: 05/18/24 (diagnosed with breast cancer 2018, subsequent mastectomy) Plan of Care Certification Date: 10/07/24 Next Certification Due Date: 12/07/24 Patient Identified by Name and Date of : Yes REHABILITATION AND SPORTS THERAPY PHYSICAL THERAPY TREATMENT NOTE ASSESSMENT: Pat Sorto tolerated the session with expected muscle soreness. She demonstrated decreased tenderness in L pec/chest region post manual techniques this date. Recommended patient reach out to PCP regarding her warmness feeling in the L arm as well as concern for infection. Her UE is not warm to the touch by clinician although patient notes her arm feeling warm. Did not perform MLD this date due to concern for infection. Pt agreeable to reach out to PCP today. The patient will continue to benefit from ongoing skilled physical therapy to progress toward set goals. PLAN FOR NEXT VISIT: Follow up on visit with PCP regarding potential infection in L UE. Continue with MLD if cleared by doctor. SUBJECTIVE: Her arm is really tender to touch, feels warm and hard. Has been warm for about a week. Had a UTI that developed into E coli and has been on antibiotics. Is wondering if the infection has spread to her arm. Pain: Pain Pain Location: Upper Arm - Left Description: Tenderness Additional Pain Information : Specific pain level not discussed in order to focus on movement/functional goals Post Treatment Pain Post Treatment Pain Level: Better Post Treatment Pain Location: Upper Arm - Left OBJECTIVE MEASURES WITH LEVEL OF FUNCTION: Mild redness and mild warmth at inside of L upper arm. Small raised bumps localized to dorsal aspect of forearm. Bumps are not red in nature. TREATMENT: Manual Therapy: 2: Inspection and objective measures taken for L UE and assessing skin color, signs of infection, etc. 3: TPR, sustained pressure and gentle STM to L pec and chest region 4: PROM L UE ER/IR, scaption, ABD and flexion Skilled Intervention: Manual skills to improve joint mobility, ROM, and decrease pain. Utilized anatomy knowledge of the clinician, and assessment of patient's response to intervention. Self-Senior Care Management: 1: Discussion and education regarding potential infection and why MLD is contraindicated to avoid spread of infection 2: Education on specific signs of cellulitis/infection in UE with visual aid Skilled Intervention: Skilled judgment in the selection of proper modification for activity of daily living/home management based on clinical presentation, deficits, and needs. Reviewed patient specific diagnosis in relation to activities of daily living/home management. Activity progression based on professional judgement. Home Exercise Program Assigned: 1: Access Code: [email or web address] URL: [email or web address] Date: 10/13/2024 Prepared by: SHIRLEY Posada Exercises - Supine Chest Stretch with Elbows Bent - 1 x daily - 7 x weekly - 3-5 reps - 30 sec holds hold - Standing Single Arm Shoulder Abduction Stretch on Wall - 1 x daily - 7 x weekly - 3-5 reps - 30 hold - Standing Single Arm Shoulder Abduction Stretch on Wall - 1 x daily - 7 x weekly - 3-5 reps - 30 seconds hold - Single Arm Doorway Pec Stretch at 90 Degrees Abduction - 1 x daily - 7 x weekly - 1 sets - 3 reps - 20-30 hold - Doorway Pec Stretch at 60 Degrees Abduction with Arm Straight - 1 x daily - 7 x weekly - 1 sets - 3 reps - 20-30 hold Billing Manual TherapyTreatment Minutes: 35 Self-Care/Home Management Treatment Minutes: 10 Skilled Treatment Time Minutes (timed and untimed codes): 45 Total Session Time (minutes): 45 Session Start Time : 940 Session Stop Time : 102 Noe Jackson [facility] 10-12-2024 Telephone encounter Note Pt called and is notified of providers results and instructions. Pt voices understanding. Pt states she finished her antibiotics. She states the only symptom she has is a little tingling when urinating. She states the test came back with he highest level of e coli yet. She states she has lymphedema in her L arm, and the PT person was asking if may the provider though she could have an infection in it, because it is kind of warm. Pt denies running a fever or any nred streaks. She states the arm is pinkish, but she does wear a compression sleeve on it, but not all the times. Pt still reports to having the fatigue which she had with the UTI. I ask the Pt if she had an open wounds on that arm or hand and she denied any, and she reports to using good hand hygiene. She was asking if the e coli could have gotten into her arm with the lymphedema. Please call and advise. Serenity Vilchis RN [facility] 10-12-2024 Telephone encounter Note Labs look like she is not getting enough fluid intake. Would endorse getting 64 ounces of fluid daily. Keep appointment with nephrology. Confirm completed antibiotic. Check to see if UTI symptoms.. Creatinine Date Value Ref Range Status 10/07/2024 1.87 (H) 0.58 - 0.96 mg/dL Final 09/22/2024 1.96 (H) 0.58 - 0.96 mg/dL Final 09/01/2024 1.47 (H) 0.58 - 0.96 mg/dL Final 08/04/2024 1.06 (H) 0.58 - 0.96 mg/dL Final [facility] 10-12-2024 Telephone encounter Note Patient calls and states that she had urinalysis and blood work done last week. Patient is asking about the results. Latest Ref Rng 10/07/2024 Color Yellow Yellow Clarity Clear Clear Glucose, Urine Negative Negative Bilirubin, Urine Negative Negative Ketones, Urine Negative Negative Specific [place], Ur 1.005 - 1.030 1.017 Hemoglobin/Blood,Ur Negative Trace ! pH, Urine <8.5 5.5 Protein, Urine Negative 1+ ! Urobilinogen 0.2-1.0 EU/dL 0.2 EU/dL Nitrites Negative Negative Leukest Negative 2+ ! WBC, Urine 0-5 /HPF >20 /HPF ! RBC, Urine 0-2 /HPF 3-5 /HPF ! Bacteria uL Negative uL 1,320.6 (H) Epithelial Cells /HPF None Seen Hyaline Cast 0 /LPF 1-3 /LPF ! 10/07/2024 Culture 50,000-<100,000 CFU/ml Escherichia coli ! Latest Ref Rng 10/07/2024 Protein, Total 6.3 - 8.0 g/dL 6.8 Albumin 3.9 - 4.9 g/dL 3.6 (L) Calcium 8.5 - 10.2 mg/dL 9.6 Bilirubin, Total 0.2 - 1.3 mg/dL 0.2 Alkaline Phosphatase 34 - 123 U/L 57 AST 13 - 35 U/L 19 ALT 7 - 38 U/L 10 Glucose 74 - 99 mg/dL 82 BUN 7 - 21 mg/dL 50 (H) Creatinine 0.58 - 0.96 mg/dL 1.87 (H) Sodium 136 - 144 mmol/L 139 Potassium 3.7 - 5.1 mmol/L 3.6 (L) Chloride 98 - 107 mmol/L 103 CO2 22 - 30 mmol/L 24 Anion Gap 8 - 15 mmol/L 12 eGFR >=60 mL/min/1.73m 30 (L) [facility] 10-12-2024 Note HNO ID: [id number] Author: MILAGROS BROWN, PT Service: ? Author Type: Physical Therapist Type: Progress Notes Filed: 10/12/2024 07:21 Note Text: Episode Visit Count: 5 Therapist That Will Accept/Oversee The Plan Of Care: Milagros Brown PT Start of Care Date: 08/27/24 Onset Date: 05/18/24 (diagnosed with breast cancer 2018, subsequent mastectomy) Plan of Care Certification Date: 10/07/24 Next Certification Due Date: 12/07/24 Patient Identified by Name and Date of : Yes REHABILITATION AND SPORTS THERAPY PHYSICAL THERAPY PROGRESS REPORT PLAN OF CARE UPDATE: Assessment: Pat Sorto demonstrates no improvement in swelling with volume of left arm increased. The patient has no goals achieved at this time. Patient continues to present with impairments in edema management and symptom management that interfere with gripping, pulling, twisting . Current prognosis is Fair due to: chronic nature of impairments, clinical presentation . Measurements of left arm volume at 4005.02, increased from initial eval measurements at 3376.23. Will look into pump. The patient will benefit from continued skilled therapy services to meet the updated goals for this plan of care as noted below. Goals reviewed 10/07/24 Goals for Episode of Care: established 08/27/24 Patient / family knowledgeable re: all pertinent aspects of CDT Ongoing Patient / family independent with donning / doffing compression garment and proper wearing schedule and care of garment Ongoing Patient / family independent with home exercise program Ongoing Patient will decrease circumferential measurements by 1-2 cm in the following areas: left UE and hand for decreased recurrence of infection, improved mobility, improved range of motion and allow appropriate fit in compressive garment . Ongoing Patient Goals: Ease swelling Time Frame for Goals and Treatment : 11/09/24 Patient Goals: Ease swelling Planned Interventions, Frequency, and Duration: 2x/week, 4 weeks Total Number of Visits Planned: 8 (completed 5 visits as of today, continue for 8 more) Patient to be seen for Therapeutic exercise (66896), Manual therapy (11569), Self-retirement management (73091), Patient/Family/Caregiver Education, Therapeutic activities (62213) (lymphedema program) PLAN FOR NEXT VISIT: lymphedema program SUBJECTIVE: Feels like it is getting worse - more tender, more swelling, reddened along inside of left arm. Pain 5/10. 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 Doing self massage, compression garment hasn't arrived. Did recently travel by plane so that may be the issue. Wore isotoner glove and old sleeve but doesn't think it helped.. Patient Goals: Ease swelling Functional Limitations: gripping, pulling, twisting Prior Level of Function: Independent without limitations Intake Information: Prescription present Previous Treatment: Physical Therapy Falls Interview: No positive findings with falls interview Pain: Pain Pain Level: 5 Pain Location: Upper Arm - Left Description: Pressure Frequency: Continuous Post Treatment Pain Post Treatment Pain Level: No Change Post Treatment Pain Location: Upper Arm - Left PROMIS Scales 09/24/2024 08/27/2024 06/02/2019 Higher is Better Phys Func - T Score 43 (mild dysfunction) 41 (mild dysfunction) Phys Func - Percentile 24 18 Self-Eff Symptom - T Score 38 (Low) 48 (Average) Self-Eff Symptom - Percentile 12 42 Upper Extremity - T Score 42 (mild dysfunction) Upper Extremity - Percentile 21 Proxy-reported 06/02/2019 Lower is Better Pain Interference - T Score 56 (mild) Pain Interference - Percentile 27 Proxy-reported T-scores: mean of general population = 50. 5 points is clinically meaningfully difference Percentiles provide an indication of how the patient's score ranks in relation to the general population. Higher percentile rankings indicate better function/quality of life. 50th percentile is the average of the general population and indicates half of respondents had a worse score. OBJECTIVE MEASURES WITH LEVEL OF FUNCTION: Cognition Cognition: (WNL) Posture / Alignment Posture: Forward head, Rounded shoulders Shoulder Observations L Shoulder Presents with: Incision Incision: healed incision at left breast following implant removal L Shoulder Palpation Tenderness: No tenderness noted, Comments L Shoulder Palpation Tenderness Comments: good mobility of chest scar, myofascial tightness throughout chest area, moderate edema more in right arm, hand with no cording noted Sensation - Upper Extremity UE Light Touch Sensation: Grossly Intact ( feeling near elbow, heavy feeling) Cervical Spine ROM Cervical ROM : (Cervical ROM WNL) Lymphedema Presents with: Swelling Lymphedema is worse: At end of day Lymphedema is better: (not noticing improvement) Lymphedema Contributing Factors: Chemotherapy, Radiation, Lymph Node Remova (more content not included)... [facility] 10-12-2024 History of Present illness Narrative Images from the original note were not included. Episode Visit Count: 5 Therapist That Will Accept/Oversee The Plan Of Care: Milagros Brown PT Start of Care Date: 08/27/24 Onset Date: 05/18/24 (diagnosed with breast cancer 2018, subsequent mastectomy) Plan of Care Certification Date: 10/07/24 Next Certification Due Date: 12/07/24 Patient Identified by Name and Date of : Yes REHABILITATION AND SPORTS THERAPY PHYSICAL THERAPY PROGRESS REPORT PLAN OF CARE UPDATE: Assessment: Pat Angelita Komara demonstrates no improvement in swelling with volume of left arm increased. The patient has no goals achieved at this time. Patient continues to present with impairments in edema management and symptom management that interfere with gripping, pulling, twisting . Current prognosis is Fair due to: chronic nature of impairments, clinical presentation . Measurements of left arm volume at 4005.02, increased from initial eval measurements at 3376.23. Will look into pump. The patient will benefit from continued skilled therapy services to meet the updated goals for this plan of care as noted below. Goals reviewed 10/07/24 Goals for Episode of Care: established 08/27/24 Patient / family knowledgeable re: all pertinent aspects of CDT Ongoing Patient / family independent with donning / doffing compression garment and proper wearing schedule and care of garment Ongoing Patient / family independent with home exercise program Ongoing Patient will decrease circumferential measurements by 1-2 cm in the following areas: left UE and hand for decreased recurrence of infection, improved mobility, improved range of motion and allow appropriate fit in compressive garment . Ongoing Patient Goals: Ease swelling Time Frame for Goals and Treatment : 11/09/24 Patient Goals: Ease swelling Planned Interventions, Frequency, and Duration: 2x/week, 4 weeks Total Number of Visits Planned: 8 (completed 5 visits as of today, continue for 8 more) Patient to be seen for Therapeutic exercise (09019), Manual therapy (33553), Self-retirement management (08802), Patient/Family/Caregiver Education, Therapeutic activities (37322) (lymphedema program) PLAN FOR NEXT VISIT: lymphedema program SUBJECTIVE: Feels like it is getting worse - more tender, more swelling, reddened along inside of left arm. Pain 5/10. 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 Doing self massage, compression garment hasn't arrived. Did recently travel by plane so that may be the issue. Wore isotoner glove and old sleeve but doesn't think it helped.. Patient Goals: Ease swelling Functional Limitations: gripping, pulling, twisting Prior Level of Function: Independent without limitations Intake Information: Prescription present Previous Treatment: Physical Therapy Falls Interview: No positive findings with falls interview Pain: Pain Pain Level: 5 Pain Location: Upper Arm - Left Description: Pressure Frequency: Continuous Post Treatment Pain Post Treatment Pain Level: No Change Post Treatment Pain Location: Upper Arm - Left PROMIS Scales 09/24/2024 08/27/2024 06/02/2019 Higher is Better Phys Func - T Score 43 (mild dysfunction) 41 (mild dysfunction) Phys Func - Percentile 24 18 Self-Eff Symptom - T Score 38 (Low) 48 (Average) Self-Eff Symptom - Percentile 12 42 Upper Extremity - T Score 42 (mild dysfunction) Upper Extremity - Percentile 21 Proxy-reported 06/02/2019 Lower is Better Pain Interference - T Score 56 (mild) Pain Interference - Percentile 27 Proxy-reported T-scores: mean of general population = 50. 5 points is clinically meaningfully difference Percentiles provide an indication of how the patient's score ranks in relation to the general population. Higher percentile rankings indicate better function/quality of life. 50th percentile is the average of the general population and indicates half of respondents had a worse score. OBJECTIVE MEASURES WITH LEVEL OF FUNCTION: Cognition Cognition: (WNL) Posture / Alignment Posture: Forward head, Rounded shoulders Shoulder Observations L Shoulder Presents with: Incision Incision: healed incision at left breast following implant removal L Shoulder Palpation Tenderness: No tenderness noted, Comments L Shoulder Palpation Tenderness Comments: good mobility of chest scar, myofascial tightness throughout chest area, moderate edema more in right arm, hand with no cording noted Sensation - Upper Extremity UE Light Touch Sensation: Grossly Intact ( feeling near elbow, heavy feeling) Cervical Spine ROM Cervical ROM : (Cervical ROM WNL) Lymphedema Presents with: Swelling Lymphedema is worse: At end of day Lymphedema is better: (not noticing improvement) Lymphedema Contributing Factors: Chemotherapy, Radiation, Lymph Node Removal (traveled recently by plane) Relative Contra-indications to Compression: : None Relative Contra-indications to Manual Lymph Drainage: : None Relative Contra-indications to Neck Manual Lymph Drainage: : None Relative Contra-indications for Abdominal Sequences: None Skin: Stemmer Sign, Skin Comments Stemmer Sign Comments: positive Stemmer's sign left Upper Extremity Circumferential Measurements L Thumb (proximal phalanx) (cm): 7.5 cm L Index Finger (proximal phalanx) (cm): 7.3 cm L Middle Finger (proximal phalanx) (cm): 7 cm L Ring Finger (proximal phalanx) (cm): 6.8 cm L Small Finger (proximal phalanx) (cm): 6.5 cm L DPC (cm): 21.3 cm L Distal Wrist Crease (DWC) (cm): 19 cm L 4 cm above wrist (cm): 22.6 cm L 8 cm above wrist (cm): 24.3 cm L 12 cm above wrist (cm): 30 cm L 16 cm above wrist (cm): 33 cm L 20 cm above wrist (cm): 34 cm L 24 cm above wrist (cm): 33.5 cm L 28 cm above wrist (cm): 36.4 cm L 32 cm above wrist (cm): 38.5 cm L 36 cm above wrist (cm): 41.5 cm L 40 cm above wrist (cm): 40.4 cm L 44 cm above wrist (cm): 42 cm Affected Arm : Left Arm L Upper Extremity Volume: 4005.92 UE AROM R UE AROM: WNL L UE AROM: WNL UE and Cervical Strength R UE Strength: 4+/5 L UE Strength: 4+/5 Gait Gait Observation: independent, no gait deviations or loss of balance TREATMENT: Therapeutic Activity: Skilled Intervention: Education - discussed treatment plan and goals. Will pursue lymphedema pump to assist in decreasing swelling. Billing Therapeutic Activity Treatment Minutes: 30 Skilled Treatment Time Minutes (timed and untimed codes): 30 Total Session Time (minutes): 30 Session Start Time : 1030 (15 min late for appointment.) Session Stop Time : 1100 Milagros Brown PT documented in this encounter [facility] 10-07-2024 History of Present illness Narrative Primary Care Pharmacy Visit CC (Reason for Consult): (E11.9) Type 2 diabetes mellitus without complication, unspecified whether fpc insulin use (HCC) (primary encounter diagnosis) Goal(s): A1c <8% per consult Last Collaborating Provider Visit: 09/22/24 with SONIDO Holderkey Sorto is a 64 year old female presenting for follow up visit telephone call. Patient consents to pharmacy collaborative practice agreement. Last Pharmacy Visit: 09/08/24 - Lantus increased to 30 units HPI: Reports doing well States BGs have been better in last week Reports BGs had been high for awhile, got back from [place] and has been better. Was walking a lot while in [place] Reports symptoms of hyperglycemia has improved, not occurring like was previously Current DM Medications: Lantus 30 units once daily in the morning Previously Trialed DM Meds: Ozempic - diarrhea/vomiting Metformin - unable to tolerate Glipizide - stopped when insulin started by endo Diet Ate mostly meat and potatoes while on vacation but was walking a lot GLYCEMIC CONTROL: Glucometer present at visit: Yes Hypoglycemia: No SMBGS (Fingersticks) Date Fasting AM Before Dinner 2 hr PP 10/07 118 10/06 113 10/05 168 10/04 111 10/03 132 10/02 127 10/01 139 09/30 135 09/29 127 09/28 201 09/27 140 09/26 192 09/25 153 09/24 168 09/23 174 218 09/22 177 AVG 147 193 Past medical history reviewed. ALLERGIES Allergen Reactions Amoxicillin Rash rash arms trunk neck face, itching Chills Tolerates Ancef Current Outpatient Medications Medication Sig Dispense Refill insulin glargine (LANTUS SOLOSTAR U-100 INSULIN) 100 unit/mL (3 mL) Inject 30 Units subcutaneously every morning. 15 mL 5 DROPLET PEN NEEDLE 31 gauge x 3/16 1 each two times a day. 300 each 3 hydroCHLOROthiazide 25 mg tablet Take 25 mg by mouth once daily. amLODIPine (NORVASC) 5 mg tablet Take 5 mg by mouth once daily. traZODone (DESYREL) 50 mg tablet Take 1 tablet by mouth daily at bedtime. 90 tablet 3 metoprolol succinate ER (TOPROL XL) 25 mg 24 hr tablet take 1 tablet by mouth once daily 90 tablet 3 exemestane (AROMASIN) 25 mg tablet Take 1 tablet by mouth once daily. 90 tablet 3 losartan (COZAAR) 100 mg tablet Take 1 tablet by mouth every afternoon. 90 tablet 3 ursodiol (LEENA) 250 mg tablet Take 250 mg by mouth two times a day. everolimus, antineoplastic, (AFINITOR) 10 mg tablet TAKE 1 TABLET ONCE DAILY 90 tablet 3 Sodium Fluoride, Dental Rinse, 0.2 % SWISH 10 ML BY MOUTH THEN SPIT ONCE WEEKLY diphenhydrAMINE-Acetaminophen (TYLENOL PM EXTRA STRENGTH) 25-500 mg tab Take 1 tablet by mouth at bedtime as needed. ONETOUCH ULTRA PLUS TEST strp 1 Each two times a day. E11.65; No insulin 200 Each 3 Lancets Use with blood glucose test two times a day. Insulin Dep? No 200 Each 3 blood sugar diagnostic (BLOOD GLUCOSE TEST) test strip Use with blood glucose test two times a day. Insulin Dep? No 200 Each 3 aspirin, enteric coated (ASPIRIN, ENTERIC COATED) 81 mg EC tablet Take 81 mg by mouth once daily. pantoprazole DR (PROTONIX) 40 mg tablet Take 40 mg by mouth daily before breakfast. ascorbic acid, vitamin C, (VITAMIN C) 500 mg tablet Take 500 mg by mouth once daily. alpha tocopheryl acetate (VITAMIN E) 400 unit capsule Take 400 Units by mouth once daily. cyanocobalamin (VITAMIN B-12) 1,000 mcg tab Take 500 mcg by mouth once daily. VITAMIN D 50,000 unit capsule 1 capsule one time a week. CALCIUM CARBONATE (CALCIUM 500 ORAL) Take 1 tablet by mouth once daily. No current facility-administered medications for this visit. Pill bottles are not present. Adherence: denies missed doses. Rx coverage: Payor: MEDICARE / Plan: MEDICARE A AND B / Product Type: Medicare / Medications affordable? Yes PHARMACOTHERAPY PREVENTATIVE MEDS: On LATISHA/ARB: Yes On Statin: No On ASA: Yes EXAM: There were no vitals taken for this visit. Last 3 Encounter BP Readings: Date: BP: 09/22/2024 116/70 09/07/2024 114/75 09/03/2024 135/81 Wt: 78.9 kg (174 lb) BMI: 28.51 kg/(m^2) LABS: Lab Results Component Value Date HBA1C 7.7 09/22/2024 HBA1C 6.8 07/08/2024 HBA1C 7.2 03/18/2024 HBA1C 9.1 07/16/2023 HBA1C 6.1 03/11/2023 HBA1C 5.9 02/19/2022 HBA1C 5.6 10/07/2018 HBA1C 5.7 05/20/2018 Glucose 82 10/07/2024 BUN 50 10/07/2024 Creatinine, Whole Blood (iSTAT) 1.87 10/07/2024 Sodium 139 10/07/2024 Potassium 3.6 10/07/2024 Chloride 103 10/07/2024 CO2 24 10/07/2024 Protein, Total 6.8 10/07/2024 Albumin 3.6 10/07/2024 Calcium 9.6 10/07/2024 Alkaline Phosphatase 57 10/07/2024 Bilirubin, Total 0.2 10/07/2024 AST 19 10/07/2024 ALT 10 10/07/2024 Lab Results Component Value Date CHOL 231 09/22/2024 CHOL 202 11/11/2023 CHOL 167 10/07/2018 LDL 116 09/22/2024 LDL 103 10/07/2018 HDL 29 09/22/2024 HDL 27 11/11/2023 HDL 34 10/07/2018 TG 491 09/22/2024 TG 250 11/11/2023 TG 151 10/07/2018 Albumin/Creat Ratio (mg/g) Date Value 09/22/2024 86 (H) eGFR-All Other Races (.) Date Value 02/15/2021 59 Estimated Glomerular Filtration Rate (mL/min/1.73m ) Date Value 10/07/2024 30 ASSESSMENT/PLAN: 1. Type 2 diabetes mellitus without complication, unspecified 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 insulin use (HCC) - ICD9: 250.00, ICD10: E11.9 - Improving control - Continue current medications - Blood glucose monitoring on a twice daily schedule - Counseled on healthy diet and regular exercise - Discussed diabetic education issues of hypoglycemic/hyperglycemic symptoms - Follow up in 1 month, sooner should any other issues arise. Overdue Diabetes Health Maintenance: Health Maintenance - Diabetes Topic Date Due Diabetic Foot Exam Never done Follow Up: Next PCP visit: 03/23/25 Next PharmD visit: 11/13/24 Tatianna Crook, PharmD, BCACP Primary Care Clinical Putty Remover documented in this encounter [facility] 10-07-2024 Note [facility] 10-06-2024 Telephone encounter Note Faxed and scanned [facility] 10-06-2024 Miscellaneous Notes Faxed and scanned Images from the original note were not included. Katie Carter RN You15 hours ago (5:11 PM) BIRDIE Yes, okay to sign Received an order from [employer], scanned into chart. OK to sign? documented in this encounter [facility] 10-06-2024 Telephone encounter Note Images from the original note were not included. Katie Carter RN You15 hours ago (5:11 PM) BIRDIE Yes, okay to sign [facility] 10-05-2024 Telephone encounter Note See MyChart reply [facility] 10-05-2024 Miscellaneous Notes See MyChart reply documented in this encounter [facility] 10-05-2024 Telephone encounter Note Received an order from [employer], scanned into chart. OK to sign? [facility] 09-25-2024 Telephone encounter Note Pt called back in and was asking if the e coli could be spread to other people since she will be going on vacation. I told her I don't believe it can be, but she needs to make sure to use good hygiene practices like wiping from front to back. Please send a [employer] message to Pt with reply. Serenity Vilchis RN [facility] 09-25-2024 Miscellaneous Notes Pt called back in and was asking if the e coli could be spread to other people since she will be going on vacation. I told her I don't believe it can be, but she needs to make sure to use good hygiene practices like wiping from front to back. Please send a [employer] message to Pt with reply. Serenity Vilchis RN Pt called and is notified of providers message and instructions. Pt voices understanding. She states she will be leaving tomorrow for a week in [place]. Serenity Vilchis RN Please let her know we would like to switch her antibiotic to cefuroxime 500 mg once daily. Would recommend starting that today. Continue to push fluids. Keep appointment with nephrology. Would recommend recheck of urinalysis and metabolic panel for clearing of infection and renal function in 2-3 weeks. If considering travel would base on how she is feeling. Reviewed with Jacinta Rivas MD documented in this encounter [facility] 09-25-2024 Telephone encounter Note Pt called and is notified of providers message and instructions. Pt voices understanding. She states she will be leaving tomorrow for a week in [place]. Serenity Vilchis RN [facility] 09-25-2024 Telephone encounter Note Please let her know we would like to switch her antibiotic to cefuroxime 500 mg once daily. Would recommend starting that today. Continue to push fluids. Keep appointment with nephrology. Would recommend recheck of urinalysis and metabolic panel for clearing of infection and renal function in 2-3 weeks. If considering travel would base on how she is feeling. Reviewed with Jacinta Rivas MD [facility] 09-24-2024 Telephone encounter Note I got patient scheduled with Dr. Annabel Carter on 10/28/2024 @ 11:00. Patient is aware and will arrive at 10:45. Referral faxed. Svetlana Kong LPN [facility] 09-24-2024 Miscellaneous Notes I got patient scheduled with Dr. Annabel Carter on 10/28/2024 @ 11:00. Patient is aware and will arrive at 10:45. Referral faxed. Svetlana Kong LPN Nel Day placed a referral to nephrology yesterday. Svetlana Kong LPN Patient calling in stating Dr. Carrasco would like her to see Nephrology for abnormal kidney labs. If appropriate, please place order. Patient is currently scheduled for first available within the [facility] November 17 in [place]. Patient was concerned she needs to be seen sooner than this. Please review and advise. Morenita Boyd September 24, 2024 12:46 PM documented in this encounter [facility] 09-24-2024 Telephone encounter Note Nel Day placed a referral to nephrology yesterday. Svetlana Kong LPN [facility] 09-24-2024 Telephone encounter Note Patient calling in stating Dr. Carrasco would like her to see Nephrology for abnormal kidney labs. If appropriate, please place order. Patient is currently scheduled for first available within the [facility] November 17 in [place]. Patient was concerned she needs to be seen sooner than this. Please review and advise. Morenita Boyd September 24, 2024 12:46 PM [facility] 09-24-2024 Telephone encounter Note Patient notified of results and provider's instructions. Please let the patient know the ultrasound of her kidneys was normal. Culture results still pending. Dr. Carrasco recommends referral to nephrology LANE, please assist patient in scheduling or fax consult order if she prefers to stay local Nel Day APRN.CNP Patient verbalizes understanding. Karyn Truong RN [facility] 09-24-2024 Miscellaneous Notes Patient notified of results and provider's instructions. Please let the patient know the ultrasound of her kidneys was normal. Culture results still pending. Dr. Carrasco recommends referral to nephrology LANE, please assist patient in scheduling or fax consult order if she prefers to stay local Nel Day APRN.SONIDO Patient verbalizes understanding. Karyn Truong RN documented in this encounter [facility] 09-24-2024 Note HNO ID: [id number] Author: NOE JACKSON PTA Service: ? Author Type: Reinforcer Type: Progress Notes Filed: 09/24/2024 12:41 Note Text: Episode Visit Count: 4 Therapist That Will Accept/Oversee The Plan Of Care: Milagros Brown PT Start of Care Date: 08/27/24 Onset Date: 05/18/24 (diagnosed with breast cancer 2018, subsequent mastectomy) Plan of Care Certification Date: 08/27/24 Next Certification Due Date: 10/26/24 Patient Identified by Name and Date of : Yes REHABILITATION AND SPORTS THERAPY PHYSICAL THERAPY TREATMENT NOTE ASSESSMENT: Pat Sorto tolerated the session with no issues. She demonstrated increased soreness and tenderness at medial aspect of elbow and upper arm on the L. Provided with glove to utilize on plane ride in conjunction with sleeve that she owns; provided with Tubigrip sizes (2) for options for different compression levels. The patient will continue to benefit from ongoing skilled physical therapy for reassessment by supervising therapist. PLAN FOR NEXT VISIT: Progress note due at next visit. SUBJECTIVE: Pat notes that she was sore after last session in her R armpit and her L chest region. Pain: Pain Pain Location: Upper Arm - Left Description: Pressure (heavy) Frequency: Continuous Post Treatment Pain Post Treatment Pain Level: No Change Post Treatment Pain Location: Upper Arm - Left OBJECTIVE MEASURES WITH LEVEL OF FUNCTION: Pt in no acute distress. TREATMENT: Manual Therapy: 1: L UE MLD: Supraclavicular LN -- Superficial abdominals -- R axillary L-- inter-axillary anastomoses -- L inguinal LN -- axillo-inguinal anastomoses -- L shoulder/rotators -- L upper arm medial to lateral drainage emphasis -- elbow -- anterior/posterior forearm -- L wrist/hand --fingers -- follow up 2: Fit with isotoner glove size medium for patient to use in interim for her flight and prior to receiving her garments 3: Provided with size F and G Tubigrip to utilize on plane and have options for compression on her upcoming trip Skilled Intervention: Manual skills to improve joint mobility, ROM, and decrease pain. Utilized anatomy knowledge of the clinician, and assessment of patient's response to intervention. Self-Senior Care Management: 1: Discussion/education/reminders on wearing garments during plane ride and allowing pressure to reset before removing (about an hour) Skilled Intervention: Reviewed patient specific diagnosis in relation to activities of daily living/home management. Billing Manual TherapyTreatment Minutes: 40 Self-Care/Home Management Treatment Minutes: 5 Skilled Treatment Time Minutes (timed and untimed codes): 45 Total Session Time (minutes): 45 Session Start Time : 0945 Session Stop Time : 1030 Noe Jackson PTA [facility] 09-24-2024 History of Present illness Narrative Episode Visit Count: 4 Therapist That Will Accept/Oversee The Plan Of Care: Milagros Brown PT Start of Care Date: 08/27/24 Onset Date: 05/18/24 (diagnosed with breast cancer 2018, subsequent mastectomy) Plan of Care Certification Date: 08/27/24 Next Certification Due Date: 10/26/24 Patient Identified by Name and Date of : Yes REHABILITATION AND SPORTS THERAPY PHYSICAL THERAPY TREATMENT NOTE ASSESSMENT: Pat Sorto tolerated the session with no issues. She demonstrated increased soreness and tenderness at medial aspect of elbow and upper arm on the L. Provided with glove to utilize on plane ride in conjunction with sleeve that she owns; provided with Tubigrip sizes (2) for options for different compression levels. The patient will continue to benefit from ongoing skilled physical therapy for reassessment by supervising therapist. PLAN FOR NEXT VISIT: Progress note due at next visit. SUBJECTIVE: Pat notes that she was sore after last session in her R armpit and her L chest region. Pain: Pain Pain Location: Upper Arm - Left Description: Pressure (heavy) Frequency: Continuous Post Treatment Pain Post Treatment Pain Level: No Change Post Treatment Pain Location: Upper Arm - Left OBJECTIVE MEASURES WITH LEVEL OF FUNCTION: Pt in no acute distress. TREATMENT: Manual Therapy: 1: L UE MLD: Supraclavicular LN -- Superficial abdominals -- R axillary L-- inter-axillary anastomoses -- L inguinal LN -- axillo-inguinal anastomoses -- L shoulder/rotators -- L upper arm medial to lateral drainage emphasis -- elbow -- anterior/posterior forearm -- L wrist/hand --fingers -- follow up 2: Fit with isotoner glove size medium for patient to use in interim for her flight and prior to receiving her garments 3: Provided with size F and G Tubigrip to utilize on plane and have options for compression on her upcoming trip Skilled Intervention: Manual skills to improve joint mobility, ROM, and decrease pain. Utilized anatomy knowledge of the clinician, and assessment of patient's response to intervention. Self-Senior Care Management: 1: Discussion/education/reminders on wearing garments during plane ride and allowing pressure to reset before removing (about an hour) Skilled Intervention: Reviewed patient specific diagnosis in relation to activities of daily living/home management. Billing Manual TherapyTreatment Minutes: 40 Self-Care/Home Management Treatment Minutes: 5 Skilled Treatment Time Minutes (timed and untimed codes): 45 Total Session Time (minutes): 45 Session Start Time : 0945 Session Stop Time : 1030 Noe Jackson PTA documented in this encounter [facility] 09-23-2024 History of Present illness Narrative Radiology Service Progress Note PATIENT NAME: Pat Sorto DATE OF SERVICE: September 23, 2024 TIME: 4:17 PM PATIENT IDENTITY VERIFICATION COMPLETED USING TWO (2) IDENTIFIERS: Name and Date of confirmed by patient verbally. FALL SCREENING: Has the patient had 2 falls in the last year or 1 fall with injury or currently using an Ambulatory Assistive Device (Walker, Cane, Wheelchair, Crutches, etc.)? No PATIENT GENDER DATA: Assigned female at . status: : No status: NO. PATIENT RELEVANT IMPLANT DATA REVIEWED: Yes PATIENT PRESENTS WITH AN IMPLANTABLE OR ATTACHED BILLING AND INSURANCE COORDINATOR: No RADIOLOGY DEPARTMENT: Ultrasound PERIPHERAL IV DATA: Not applicable SIGNED BY: TECHNOLOGIST Brayden September 23, 2024 4:17 PM documented in this encounter [facility] 09-23-2024 Note HNO ID: [id number] Author: TYE NEGRON TECHNOLOGIST Service: ? Author Type: Technologist Type: Progress Notes Filed: 09/23/2024 16:17 Note Text: Radiology Service Progress Note PATIENT NAME: Pat Sorto DATE OF SERVICE: September 23, 2024 TIME: 4:17 PM PATIENT IDENTITY VERIFICATION COMPLETED USING TWO (2) IDENTIFIERS: Name and Date of confirmed by patient verbally. FALL SCREENING: Has the patient had 2 falls in the last year or 1 fall with injury or currently using an Ambulatory Assistive Device (Walker, Cane, Wheelchair, Crutches, etc.)? No PATIENT GENDER DATA: Assigned female at . status: : No status: NO. PATIENT RELEVANT IMPLANT DATA REVIEWED: Yes PATIENT PRESENTS WITH AN IMPLANTABLE OR ATTACHED BILLING AND INSURANCE COORDINATOR: No RADIOLOGY DEPARTMENT: Ultrasound PERIPHERAL IV DATA: Not applicable SIGNED BY: Tye Negron, TECHNOLOGIST September 23, 2024 4:17 PM [facility] 09-22-2024 Note [facility] 09-22-2024 History of Present illness Narrative CC: Patient presents with: Recheck: UTI HPI Recording using [employer] software for draft documentation of the visit was discussed with the patient/authorized traffic representative; all questions welcomed and answered. Patient/authorized traffic representative agreed to proceed Pat Sorto is a 64-year-old female with a history of diabetes mellitus, presenting for follow-up on a UTI. Pat was initially seen on 09/07 for dysuria, urinary frequency, and urgency. A urine dipstick test at that time revealed a large amount of blood, 100 protein, and small leukocytes, leading to a prescription of Cipro for a possible UTI. However, the subsequent urine culture showed resistance to Cipro, and the antibiotic was changed to Macrobid on 09/10. Today, Pat reports persistent urinary frequency and cloudy urine. She denies significant burning but notes a tingly sensation. She also describes a bloating feeling that prompts an urgent need to urinate, though she often does not void much urine. She denies hematuria, back pain, abdominal pressure, fever, chills, nausea, or emesis. Pat is scheduled to travel to [place] on Saturday and expresses a desire to ensure her UTI is resolved before her trip. Pat has a history of diabetes mellitus and reports that her blood glucose levels have been running high. She attributes this to her cancer medication, which raises her blood sugar levels, necessitating insulin use. She also reports chronic dehydration despite efforts to increase water intake, which she believes may be related to her multiple medications, including those for cancer treatment. 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 Husam Hart in [place] PAST SURGICAL HISTORY Procedure Laterality Date ARTHRP ACETBLR/PROX FEM PROSTC AGRFT/ALGRFT Right 03/20/2019 Hip replacement, total ARTHRP KNE CONDYLE&PLATU MEDIAL&LAT COMPARTMENTS Left 02/2016 BIOPSY BREAST OPEN INCISIONAL Left 2007 [facility] benign pathology per patient BREAST RECONSTRUCTION Left 2019 fat graft/implant exchange DELIVERY ONLY 1996,1993 , low transverse MASTECTOMY HX Left 2017 AND with immediate reconstruction MASTECTOMY, SIMPLE, COMPLETE Left 05/18/2024 removal of implant, WLE of chest wall PAST SURGICAL HISTORY OF 2022 bronchoscopy ALLERGIES Amoxicillin MEDICATIONS insulin glargine (LANTUS SOLOSTAR U-100 INSULIN) 100 unit/mL (3 mL) Inject 30 Units subcutaneously every morning. hydroCHLOROthiazide 25 mg tablet Take 25 mg by mouth once daily. amLODIPine (NORVASC) 5 mg tablet Take 5 mg by mouth once daily. traZODone (DESYREL) 50 mg tablet Take 1 tablet by mouth daily at bedtime. metoprolol succinate ER (TOPROL XL) 25 mg 24 hr tablet take 1 tablet by mouth once daily exemestane (AROMASIN) 25 mg tablet Take 1 tablet by mouth once daily. losartan (COZAAR) 100 mg tablet Take 1 tablet by mouth every afternoon. ursodiol (LEENA) 250 mg tablet Take 250 mg by mouth two times a day. everolimus, antineoplastic, (AFINITOR) 10 mg tablet TAKE 1 TABLET ONCE DAILY Sodium Fluoride, Dental Rinse, 0.2 % SWISH 10 ML BY MOUTH THEN SPIT ONCE WEEKLY diphenhydrAMINE-Acetaminophen (TYLENOL PM EXTRA STRENGTH) 25-500 mg tab Take 1 tablet by mouth at bedtime as needed. [employer] ULTRA PLUS TEST strp 1 Each two times a day. E11.65; No insulin Lancets Use with blood glucose test two times a day. Insulin Dep? No blood sugar diagnostic (BLOOD GLUCOSE TEST) test strip Use with blood glucose test two times a day. Insulin Dep? No aspirin, enteric coated (ASPIRIN, ENTERIC COATED) 81 mg EC tablet Take 81 mg by mouth once daily. pantoprazole DR (PROTONIX) 40 mg tablet Take 40 mg by mouth daily before breakfast. ascorbic acid, vitamin C, (VITAMIN C) 500 mg tablet Take 500 mg by mouth once daily. alpha tocopheryl acetate (VITAMIN E) 400 unit capsule Take 400 Units by mouth once daily. cyanocobalamin (VITAMIN B-12) 1,000 mcg tab Take 500 mcg by mouth once daily. VITAMIN D 50,000 unit capsule 1 capsule one time a week. CALCIUM CARBONATE (CALCIUM 500 ORAL) Take 1 tablet by mouth once daily. DROPLET PEN NEEDLE 31 gauge x 3/16 1 each two times a day. FAMILY HISTORY Problem Relation Age of Onset Diabetes Mother Heart disease Mother Diabetes Father Hypertension Sister Hypertension Brother twin No Known Problems Son No Known Problems Son Hearing Loss Maternal Grandmother Heart disease Maternal Grandmother other (Lung Cancer) Maternal Grandfather smoker Diabetes Paternal Grandmother other (Lung Cancer) Paternal Grandfather smoker Anesthesia Problems No Family History Social History Tobacco Use Smoking status: Never Smokeless tobacco: Never Vaping Use Vaping status: Never Used Substance Use Topics Alcohol use: Yes Comment: 2 drinks per month Drug use: No BP 116/70 Pulse 88 Resp 14 Wt 78.9 kg (174 lb) SpO2 99% BMI 28.51 kg/m Physical Exam Vitals reviewed. Constitutional: Appearance: Normal appearance. Cardiovascular: Heart sounds: Normal heart sounds. Abdominal: Palpations: Abdomen is soft. Tenderness: There is no abdominal tenderness. There is no right CVA tenderness or left CVA tenderness. Neurological: Mental Status: She is alert. DATA REVIEWED: Most recent labs and urine tests Latest Ref Rng 09/22/2024 GLUCOSE UA (POCT) Negative mg/dL 250 ! BILIRUBIN UA (POCT) Negative Negative KETONE UA (POCT) Negative mg/dL Negative SPECIFIC GRAVITY UA (POCT) 1.005 - 1.030 1.020 HEMOGLOBIN/BLOOD UA (POCT) Negative Large ! PH UA (POCT) 4.5 - 8.0 5.5 PROTEIN UA (POCT) Negative mg/dL 30 ! UROBILINOGEN UA (POCT) Normal E.U./dL 0.2 NITRITE UA (POCT) Negative Negative LEUKOCYTES UA (POCT) Negative Moderate ! COLOR UA (POCT) Yellow CLARITY UA (POCT) Clear 09/07/2024 Culture 50,000-<100,000 CFU/ml Escherichia coli ! Latest Ref Rng 09/07/2024 GLUCOSE UA (POCT) Negative mg/dL Negative BILIRUBIN UA (POCT) Negative Negative KETONE UA (POCT) Negative mg/dL Negative SPECIFIC GRAVITY UA (POCT) 1.005 - 1.030 1.025 HEMOGLOBIN/BLOOD UA (POCT) Negative Large ! PH UA (POCT) 4.5 - 8.0 5.5 PROTEIN UA (POCT) Negative mg/dL 100 ! UROBILINOGEN UA (POCT) Normal E.U./dL 0.2 NITRITE UA (POCT) Negative Negative LEUKOCYTES UA (POCT) Negative Small ! COLOR UA (POCT) Yellow CLARITY UA (POCT) Cloudy Latest Ref Rng 08/04/2024 09/01/2024 Protein, Total 6.3 - 8.0 g/dL 7.4 7.3 Albumin 3.9 - 4.9 g/dL 4.0 4.0 Calcium 8.5 - 10.2 mg/dL 9.3 9.6 Bilirubin, Total 0.2 - 1.3 mg/dL 0.3 0.2 Alkaline Phosphatase 34 - 123 U/L 67 66 AST 13 - 35 U/L 22 21 ALT 7 - 38 U/L 16 18 Glucose 74 - 99 mg/dL 150 (H) 261 (H) BUN 7 - 21 mg/dL 30 (H) 44 (H) Creatinine 0.58 - 0.96 mg/dL 1.06 (H) 1.47 (H) Sodium 136 - 144 mmol/L 141 138 Potassium 3.7 - 5.1 mmol/L 4.1 4.1 Chloride 98 - 107 mmol/L 105 102 CO2 22 - 30 mmol/L 27 23 Anion Gap 8 - 15 mmol/L 9 13 eGFR >=60 mL/min/1.73m 58 (L) 39 (L) Assessment/Plan 1. Urinary frequency (R35.0) Urinary tract infection with hematuria, site unspecified (N39.0) Persistent urinary frequency and cloudy urine despite treatment with Macrobid. Initial urine dip on 09/07 showed large hematuria and proteinuria. Current urine dip shows large hematuria, moderate leukocyturia, and glucosuria. No fever, chills, or back pain reported. Symptoms may be related to diabetes and/or dehydration. - Ordered urine culture and comprehensive urinalysis. - Await urine culture results before initiating further antibiotic therapy to avoid unnecessary antibiotic exposure and potential side effects such as diarrhea. 2. Renal insufficiency (N28.9) Previous lab work on 5/27 showed worsening kidney function - Ordered repeat kidney function tests to assess current status. 3. Glucosuria (R81) Type 2 diabetes mellitus without complication, with long-term current use of insulin (HCC) (E11.9) Glucosuria likely secondary to elevated blood glucose levels. Patient reports difficulty managing blood glucose due to cancer medication. - Monitor blood glucose levels closely. - Continue current insulin regimen. Prescription instructions reviewed with patient as applicable. Potential red flag symptoms discussed with the patient. Reviewed appropriate action plan to take if red flag symptoms occur. Patient agreeable to treatment plan. Nel Day APRN.PLATEN GRINDER documented in this encounter [facility] 09-22-2024 Telephone encounter Note Pt reports she has been on 2 AB's for UTI with e-coli. Pt will be traveling [place] on [place] and would like to have her urine checked prior to leaving. States she just wants piece of mind the UTI is gone before she travels. Reports no longer having pain with urination, but she is feeling tired and urine is cloudy. Scheduled same day appt with Nel. [facility] 09-22-2024 Miscellaneous Notes Pt reports she has been on 2 AB's for UTI with e-coli. Pt will be traveling abroad on Saturday and would like to have her urine checked prior to leaving. States she just wants piece of mind the UTI is gone before she travels. Reports no longer having pain with urination, but she is feeling tired and urine is cloudy. Scheduled same day appt with Nel. documented in this encounter [facility] 09-22-2024 Note HNO ID: [id number] Author: NOE JACKSON PTA Service: ? Author Type: Reinforcer Type: Progress Notes Filed: 09/22/2024 11:38 Note Text: Episode Visit Count: 3 Therapist That Will Accept/Oversee The Plan Of Care: Milagros Brown PT Start of Care Date: 08/27/24 Onset Date: 05/18/24 (diagnosed with breast cancer 2018, subsequent mastectomy) Plan of Care Certification Date: 08/27/24 Next Certification Due Date: 10/26/24 Patient Identified by Name and Date of : Yes REHABILITATION AND SPORTS THERAPY PHYSICAL THERAPY TREATMENT NOTE ASSESSMENT: Pat Sorto tolerated the session with no issues. She demonstrated improvements in her symptoms of heaviness post MLD this date. The patient will continue to benefit from ongoing skilled physical therapy to progress toward set goals. PLAN FOR NEXT VISIT: Continue with MLD to L UE. SUBJECTIVE: Pat notes her heaviness feeling is maybe a little worse, feels tight. Is unsure whether or not she is getting the dye injection, hasn't scheduled it yet. Pain: Pain Pain Location: Upper Arm - Left Description: Pressure (heavy) Frequency: Continuous Post Treatment Pain Post Treatment Pain Level: Better Post Treatment Pain Location: Upper Arm - Left OBJECTIVE MEASURES WITH LEVEL OF FUNCTION: Most of her swelling localized to medial forearm and elbow and lateral aspect of elbow. TREATMENT: Manual Therapy: 1: L UE MLD: Supraclavicular LN -- Superficial abdominals -- R axillary L-- inter-axillary anastomoses -- L inguinal LN -- axillo-inguinal anastomoses -- L shoulder/rotators -- L upper arm medial to lateral drainage emphasis -- elbow -- anterior/posterior forearm -- L wrist/hand --fingers -- follow up Skilled Intervention: Manual skills to improve joint mobility, ROM, and decrease pain. Utilized anatomy knowledge of the clinician, and assessment of patient's response to intervention. Self-Senior Care Management: 1: Discussion and recommendation on potentially purchasing tight winter glove to wear on her flight next week to assist with hand swelling in conjunction with Tubigrip as her garments will not be in on time. 2: Education on self scar tissue massage to L chest with proper techniques and patterns Skilled Intervention: Skilled judgment in the selection of proper modification for activity of daily living/home management based on clinical presentation, deficits, and needs. Reviewed patient specific diagnosis in relation to activities of daily living/home management. Billing Manual TherapyTreatment Minutes: 40 Self-Care/Home Management Treatment Minutes: 5 Skilled Treatment Time Minutes (timed and untimed codes): 45 Total Session Time (minutes): 45 Session Start Time : 1028 Session Stop Time : 1113 Noe JacksonCLIFF [facility] 09-22-2024 History of Present illness Narrative Episode Visit Count: 3 Therapist That Will Accept/Oversee The Plan Of Care: Milagros Brown PT Start of Care Date: 08/27/24 Onset Date: 05/18/24 (diagnosed with breast cancer 2018, subsequent mastectomy) Plan of Care Certification Date: 08/27/24 Next Certification Due Date: 10/26/24 Patient Identified by Name and Date of : Yes REHABILITATION AND SPORTS THERAPY PHYSICAL THERAPY TREATMENT NOTE ASSESSMENT: Pat Sorto tolerated the session with no issues. She demonstrated improvements in her symptoms of heaviness post MLD this date. The patient will continue to benefit from ongoing skilled physical therapy to progress toward set goals. PLAN FOR NEXT VISIT: Continue with MLD to L UE. SUBJECTIVE: Pat notes her heaviness feeling is maybe a little worse, feels tight. Is unsure whether or not she is getting the dye injection, hasn't scheduled it yet. Pain: Pain Pain Location: Upper Arm - Left Description: Pressure (heavy) Frequency: Continuous Post Treatment Pain Post Treatment Pain Level: Better Post Treatment Pain Location: Upper Arm - Left OBJECTIVE MEASURES WITH LEVEL OF FUNCTION: Most of her swelling localized to medial forearm and elbow and lateral aspect of elbow. TREATMENT: Manual Therapy: 1: L UE MLD: Supraclavicular LN -- Superficial abdominals -- R axillary L-- inter-axillary anastomoses -- L inguinal LN -- axillo-inguinal anastomoses -- L shoulder/rotators -- L upper arm medial to lateral drainage emphasis -- elbow -- anterior/posterior forearm -- L wrist/hand --fingers -- follow up Skilled Intervention: Manual skills to improve joint mobility, ROM, and decrease pain. Utilized anatomy knowledge of the clinician, and assessment of patient's response to intervention. Self-Senior Care Management: 1: Discussion and recommendation on potentially purchasing tight winter glove to wear on her flight next week to assist with hand swelling in conjunction with Tubigrip as her garments will not be in on time. 2: Education on self scar tissue massage to L chest with proper techniques and patterns Skilled Intervention: Skilled judgment in the selection of proper modification for activity of daily living/home management based on clinical presentation, deficits, and needs. Reviewed patient specific diagnosis in relation to activities of daily living/home management. Billing Manual TherapyTreatment Minutes: 40 Self-Care/Home Management Treatment Minutes: 5 Skilled Treatment Time Minutes (timed and untimed codes): 45 Total Session Time (minutes): 45 Session Start Time : 1028 Session Stop Time : 1113 Noe Jackson PTA documented in this encounter [facility] 09-11-2024 Note HNO ID: [id number] Author: NOE JACKSON PTA Service: ? Author Type: Reinforcer Type: Progress Notes Filed: 09/11/2024 11:52 Note Text: Episode Visit Count: 2 Therapist That Will Accept/Oversee The Plan Of Care: Milagros Brown PT Start of Care Date: 08/27/24 Onset Date: 05/18/24 (diagnosed with breast cancer 2017, subsequent mastectomy) Plan of Care Certification Date: 08/27/24 Next Certification Due Date: 10/26/24 Patient Identified by Name and Date of : Yes REHABILITATION AND SPORTS THERAPY PHYSICAL THERAPY TREATMENT NOTE ASSESSMENT: Pat Sorto tolerated the session with no issues. She demonstrated willingness and understanding of home lymphedema management and is in agreement with garment ordering. She would benefit from an upper arm sleeve that fits her as well as a glove to her fingers so she may avoid the increased hand and digit swelling she is currently receiving as she doesn't have one at this time. She would benefit from a sleeve and glove to decongest L limb at 20-30mmHg. We will await updated order/prescription from referring physician prior to submitting for the order. The patient will continue to benefit from ongoing skilled physical therapy to progress toward set goals. PLAN FOR NEXT VISIT: Assess tolerance to self-MLD. Continue with L UE MLD. MFR to L chest and review techniques to reduce scar tissue at home SUBJECTIVE: At night time the pressure and heaviness is more intense than the mornings. She does have a sleeve that she wears that her dog got a hold of, has a rip/tear near top by the band. Pain: Pain Pain Level: 4 Pain Location: Chest - Left Description: Pressure (heaviness) Frequency: Continuous Post Treatment Pain Post Treatment Pain Level: No Change Post Treatment Pain Location: Chest - Left OBJECTIVE MEASURES WITH LEVEL OF FUNCTION: cG-37.1 cm cE - 29.0 cm cC1- 19.4 cm cC- 17.1 cm cA- 20.5cm C-G 43 cm Pt is measuring in a size 5 for comfort arm sleeve made by [employer]. Measuring in size 3 of the [employer] glove with fingers. TREATMENT: Manual Therapy: 1: Demo and pt performance of self-MLD; discussion regarding proper hand technique, proper drainage pattern and direction and hand placement (provided with handout) 2: Modified MLD sequence to L UE: Supraclavicular region, L and R axillary LN's, L shoulder collectors, upper arm, forearm anterior and posterior, dorsal aspect of hand, follow up (modified due to time constaints) 3: Measured L UE for garment Skilled Intervention: Manual skills to improve joint mobility, ROM, and decrease pain. Utilized anatomy knowledge of the clinician, and assessment of patient's response to intervention. Self-Senior Care Management: 1: Discussion on garments and rationale behind obtaining a glove in addition to a new sleeve to avoid hand swelling 2: Answered pt questions regarding garments and educated on wearing sleeve/compression with activity to further assist with mm pump for drainage 3: Education on wearing of compression sleeve with her plane ride coming up soon; leaving on for a couple of hours after the flight to help pressure regulate before removing Skilled Intervention: Skilled judgment in the selection of proper modification for activity of daily living/home management based on clinical presentation, deficits, and needs. Reviewed patient specific diagnosis in relation to activities of daily living/home management. Billing Manual TherapyTreatment Minutes: 35 Self-Care/Home Management Treatment Minutes: 15 Skilled Treatment Time Minutes (timed and untimed codes): 50 Total Session Time (minutes): 50 Session Start Time : 0900 Session Stop Time : 0950 Noe Jackson PTA [facility] 09-11-2024 History of Present illness Narrative Episode Visit Count: 2 Therapist That Will Accept/Oversee The Plan Of Care: Milagros Brown PT Start of Care Date: 08/27/24 Onset Date: 05/18/24 (diagnosed with breast cancer 2018, subsequent mastectomy) Plan of Care Certification Date: 08/27/24 Next Certification Due Date: 10/26/24 Patient Identified by Name and Date of : Yes REHABILITATION AND SPORTS THERAPY PHYSICAL THERAPY TREATMENT NOTE ASSESSMENT: Pat Sorto tolerated the session with no issues. She demonstrated willingness and understanding of home lymphedema management and is in agreement with garment ordering. She would benefit from an upper arm sleeve that fits her as well as a glove to her fingers so she may avoid the increased hand and digit swelling she is currently receiving as she doesn't have one at this time. She would benefit from a sleeve and glove to decongest L limb at 20-30mmHg. We will await updated order/prescription from referring physician prior to submitting for the order. The patient will continue to benefit from ongoing skilled physical therapy to progress toward set goals. PLAN FOR NEXT VISIT: Assess tolerance to self-MLD. Continue with L UE MLD. MFR to L chest and review techniques to reduce scar tissue at home SUBJECTIVE: At night time the pressure and heaviness is more intense than the mornings. She does have a sleeve that she wears that her dog got a hold of, has a rip/tear near top by the band. Pain: Pain Pain Level: 4 Pain Location: Chest - Left Description: Pressure (heaviness) Frequency: Continuous Post Treatment Pain Post Treatment Pain Level: No Change Post Treatment Pain Location: Chest - Left OBJECTIVE MEASURES WITH LEVEL OF FUNCTION: cG-37.1 cm cE - 29.0 cm cC1- 19.4 cm cC- 17.1 cm cA- 20.5cm C-G 43 cm Pt is measuring in a size 5 for comfort arm sleeve made by [employer]. Measuring in size 3 of the [employer] glove with fingers. TREATMENT: Manual Therapy: 1: Demo and pt performance of self-MLD; discussion regarding proper hand technique, proper drainage pattern and direction and hand placement (provided with handout) 2: Modified MLD sequence to L UE: Supraclavicular region, L and R axillary LN's, L shoulder collectors, upper arm, forearm anterior and posterior, dorsal aspect of hand, follow up (modified due to time constaints) 3: Measured L UE for garment Skilled Intervention: Manual skills to improve joint mobility, ROM, and decrease pain. Utilized anatomy knowledge of the clinician, and assessment of patient's response to intervention. Self-Senior Care Management: 1: Discussion on garments and rationale behind obtaining a glove in addition to a new sleeve to avoid hand swelling 2: Answered pt questions regarding garments and educated on wearing sleeve/compression with activity to further assist with mm pump for drainage 3: Education on wearing of compression sleeve with her plane ride coming up soon; leaving on for a couple of hours after the flight to help pressure regulate before removing Skilled Intervention: Skilled judgment in the selection of proper modification for activity of daily living/home management based on clinical presentation, deficits, and needs. Reviewed patient specific diagnosis in relation to activities of daily living/home management. Billing Manual TherapyTreatment Minutes: 35 Self-Care/Home Management Treatment Minutes: 15 Skilled Treatment Time Minutes (timed and untimed codes): 50 Total Session Time (minutes): 50 Session Start Time : 0900 Session Stop Time : 0950 Noe Jackson PTA documented in this encounter [facility] 09-10-2024 Telephone encounter Note Patient returned call and went over results, notes from Cathy Burr PLUMBING MANAGER with understanding. Aware rx sent to the pharmacy. [facility] 09-10-2024 Miscellaneous Notes Patient returned call and went over results, notes from Cathy Burr PLUMBING MANAGER with understanding. Aware rx sent to the pharmacy. Phoned patient left message to return call and ask to speak to a nurse. ----- Message from Cathy Hopson APRN.FLOORING MACHINE FEEDER sent at 09/10/2024 11:16 AM EDT ----- E. coli bacteria present, culture shows resistance to ciprofloxacin and Bactrim. If still having symptoms would recommend switching to Macrobid. Will send in a prescription for her today to [facility]. E. coli bacteria present, culture shows resistance to ciprofloxacin and Bactrim. If still having symptoms would recommend switching to Macrobid. Will send in a prescription for her today to [facility]. documented in this encounter [facility] 09-10-2024 Telephone encounter Note Phoned patient left message to return call and ask to speak to a nurse. [facility] 09-10-2024 Telephone encounter Note ----- Message from Cathy Hopson APRN.CNS sent at 09/10/2024 11:16 AM EDT ----- E. coli bacteria present, culture shows resistance to ciprofloxacin and Bactrim. If still having symptoms would recommend switching to Macrobid. Will send in a prescription for her today to [facility]. [facility] 09-10-2024 Progress note Formatting of t his note might be different from the original. E. coli bacteria present, culture shows resistance to ciprofloxacin and Bactrim. If still having symptoms would recommend switching to Macrobid. Will send in a prescription for her today to [facility]. [facility] 09-08-2024 History of Present illness Narrative Primary Care Pharmacy Visit CC (Reason for Consult): (E11.9) Type 2 diabetes mellitus without complication, unspecified 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 insulin use (HCC) (primary encounter diagnosis) Goal(s): A1c <8% per consult Last Collaborating Provider Visit: 06/05/24 with GIOVANNA Adamson Pat Sorto is a 64 year old female presenting for follow up visit telephone call. Patient consents to pharmacy collaborative practice agreement. Last Pharmacy Visit: 08/11/24 - Lantus increased HPI: Reports doing okay States BGs have been higher lately and not sure why Just been drinking water with lemon and mint Denies any change with medications or changes to diet/lifestyle Reports she has a UTI, just got a Rx yesterday, symptoms started a few days ago-a week ago States she would like to meet with endocrinology to discuss further; is planning to call and make an appointment soon Discussed potential future option of SGLT2i for additional glycemic control; however, would hold off for now given current UTI and recent renal fxn fluctuations due to dehydration Current DM Medications: Lantus 26 units once daily in the morning Previously Trialed DM Meds: Ozempic - diarrhea/vomiting Metformin - unable to tolerate Glipizide - stopped when insulin started by endo Diet Still continuing to watch what she's eating GLYCEMIC CONTROL: Glucometer present at visit: Yes Hypoglycemia: No SMBGS (Fingersticks) Date Fasting AM Before Lunch 2 hr PP Before Dinner 2 hr PP 09/08 171 09/07 163 09/06 135 116 09/05 246 275 09/04 151 246 09/03 208 269 09/02 154 266 09/01 188 245 08/31 231 08/29 193 08/28 197 08/27 159 08/26 210 121 08/25 207 150 08/24 208 247 AVG 188 207 7-day av 14 day av 30 day av Past medical history reviewed. ALLERGIES Allergen Reactions Amoxicillin Rash rash arms trunk neck face, itching Chills Tolerates Ancef Current Outpatient Medications Medication Sig Dispense Refill ciprofloxacin HCl (CIPRO) 500 mg tablet Take 1 tablet by mouth two times a day for 10 days. 20 tablet 0 insulin glargine (LANTUS SOLOSTAR U-100 INSULIN) 100 unit/mL (3 mL) Inject 26 Units subcutaneously every morning. DROPLET PEN NEEDLE 31 gauge x 3/16 1 each two times a day. 300 each 3 hydroCHLOROthiazide 25 mg tablet Take 25 mg by mouth once daily. amLODIPine (NORVASC) 5 mg tablet Take 5 mg by mouth once daily. traZODone (DESYREL) 50 mg tablet Take 1 tablet by mouth daily at bedtime. 90 tablet 3 metoprolol succinate ER (TOPROL XL) 25 mg 24 hr tablet take 1 tablet by mouth once daily 90 tablet 3 exemestane (AROMASIN) 25 mg tablet Take 1 tablet by mouth once daily. 90 tablet 3 losartan (COZAAR) 100 mg tablet Take 1 tablet by mouth every afternoon. 90 tablet 3 ursodiol (LEENA) 250 mg tablet Take 250 mg by mouth two times a day. everolimus, antineoplastic, (AFINITOR) 10 mg tablet TAKE 1 TABLET ONCE DAILY 90 tablet 3 Sodium Fluoride, Dental Rinse, 0.2 % SWISH 10 ML BY MOUTH THEN SPIT ONCE WEEKLY diphenhydrAMINE-Acetaminophen (TYLENOL PM EXTRA STRENGTH) 25-500 mg tab Take 1 tablet by mouth at bedtime as needed. ONETOUCH ULTRA PLUS TEST strp 1 Each two times a day. E11.65; No insulin 200 Each 3 Lancets Use with blood glucose test two times a day. Insulin Dep? No 200 Each 3 blood sugar diagnostic (BLOOD GLUCOSE TEST) test strip Use with blood glucose test two times a day. Insulin Dep? No 200 Each 3 aspirin, enteric coated (ASPIRIN, ENTERIC COATED) 81 mg EC tablet Take 81 mg by mouth once daily. pantoprazole DR (PROTONIX) 40 mg tablet Take 40 mg by mouth daily before breakfast. ascorbic acid, vitamin C, (VITAMIN C) 500 mg tablet Take 500 mg by mouth once daily. alpha tocopheryl acetate (VITAMIN E) 400 unit capsule Take 400 Units by mouth once daily. cyanocobalamin (VITAMIN B-12) 1,000 mcg tab Take 500 mcg by mouth once daily. VITAMIN D 50,000 unit capsule 1 capsule one time a week. CALCIUM CARBONATE (CALCIUM 500 ORAL) Take 1 tablet by mouth once daily. No current facility-administered medications for this visit. Pill bottles are not present. Adherence: denies missed doses. Rx coverage: Payor: MEDICARE / Plan: MEDICARE A AND B / Product Type: Medicare / Medications affordable? Yes PHARMACOTHERAPY PREVENTATIVE MEDS: On LATISHA/ARB: Yes On Statin: No On ASA: Yes EXAM: There were no vitals taken for this visit. Last 3 Encounter BP Readings: Date: BP: 09/07/2024 114/75 09/03/2024 135/81 07/09/2024 121/86 Wt: 79 kg (174 lb 2.6 oz) BMI: 28.54 kg/(m^2) LABS: Lab Results Component Value Date HBA1C 6.8 07/08/2024 HBA1C 7.2 03/18/2024 HBA1C 9.1 07/16/2023 HBA1C 6.1 03/11/2023 HBA1C 5.9 02/19/2022 HBA1C 5.6 10/07/2018 HBA1C 5.7 05/20/2018 Glucose 261 09/01/2024 BUN 44 09/01/2024 Creatinine, Whole Blood (iSTAT) 1.47 09/01/2024 Sodium 138 09/01/2024 Potassium 4.1 09/01/2024 Chloride 102 09/01/2024 CO2 23 09/01/2024 Protein, Total 7.3 09/01/2024 Albumin 4.0 09/01/2024 Calcium 9.6 09/01/2024 Alkaline Phosphatase 66 09/01/2024 Bilirubin, Total 0.2 09/01/2024 AST 21 09/01/2024 ALT 18 09/01/2024 Lab Results Component Value Date CHOL 247 07/08/2024 CHOL 202 11/11/2023 CHOL 167 10/07/2018 LDL 162 07/08/2024 LDL 103 10/07/2018 HDL 39 07/08/2024 HDL 27 11/11/2023 HDL 34 10/07/2018 TG 230 07/08/2024 TG 250 11/11/2023 TG 151 10/07/2018 Albumin/Creat Ratio (mg/g) Date Value 07/08/2024 61 (H) eGFR-All Other Races (.) Date Value 02/15/2021 59 Estimated Glomerular Filtration Rate (mL/min/1.73m ) Date Value 09/01/2024 39 ASSESSMENT/PLAN: 1. Type 2 diabetes mellitus without complication, unspecified whether fpc insulin use (HCC) - ICD9: 250.00, ICD10: E11.9 - Worsening control d/t unknown cause - Increase Lantus to 30 units once daily - Blood glucose monitoring on a twice daily schedule - Counseled on healthy diet and regular exercise - Discussed diabetic education issues of diabetes complications and monitoring required, hypoglycemic/hyperglycemic symptoms, and medication-specific side effects and monitoring - Follow up in 1 month per patient preference, sooner should any other issues arise. Overdue Diabetes Health Maintenance: Health Maintenance - Diabetes Topic Date Due Diabetic Foot Exam Never done Follow Up: Next PCP visit: 03/23/25 Next endo visit: 10/14/24 Next PharmD visit: 10/07/24 Tatianna Crook, PharmD, BCACP Primary Care Clinical Putty Remover documented in this encounter [facility] 09-08-2024 Note [facility] 09-07-2024 History of Present illness Narrative SUBJECTIVE: HPI Pat Sorto is a 64 year old female. 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) Axillary Pain, Left Musculoskeletal Chest Pain Examination of Participant in Clinical Trial Hypertension History of Radiation Therapy Total Knee Replacement Status, Left Primary Localized Osteoarthritis of Right Hip Status Post Right Hip Replacement Lumbar Degenerative Disc Disease Carcinoma of Left Breast Metastatic to Skin (Hcc) Class 1 Obesity Due to Excess Calories With Serious Comorbidity and Body Mass Index (Bmi) of 32.0 to 32.9 in Adult Metastasis to Mediastinal Lymph Node (Hcc) Functional Diarrhea Dehydration Lymphedema of Left Arm Gastroesophageal Reflux Disease Type 2 Diabetes Mellitus Without Complication, With Long-Term Current Use of Insulin (Hcc) Presents for UTI symptoms. Dysuria and Urinary Urgency: - Reports dysuria and urinary urgency. - Last UTI 11/2023 UTI treated with two different antibiotics; Cipro was most effective. - Denies fever. - Possible abdominal pain a few days ago, but believes it is improving. - Increasing fluid intake over the past 5 days. - Upcoming travel to [place] with [id number]; wants to ensure UTI is resolved before departure. Review of Systems Constitutional: (+) fatigue Gastrointestinal: (+) abdominal pain Genitourinary: (+) dysuria, (+) urinary urgency Objective There were no vitals taken for this visit. Physical Exam Vitals and nursing note reviewed. Constitutional: Appearance: Normal appearance. HENT: Head: Normocephalic and atraumatic. Eyes: Conjunctiva/sclera: Conjunctivae normal. Neck: Thyroid: No thyromegaly. Vascular: Normal carotid pulses. No carotid bruit or JVD. Cardiovascular: Rate and Rhythm: Normal rate and regular rhythm. Pulses: Carotid pulses are 2+ on the right side and 2+ on the left side. Radial pulses are 2+ on the right side and 2+ on the left side. Heart sounds: Normal heart sounds. Pulmonary: Effort: Pulmonary effort is normal. Breath sounds: Normal breath sounds. Abdominal: General: Bowel sounds are normal. Palpations: Abdomen is soft. Musculoskeletal: Right lower leg: No edema. Left lower leg: No edema. Skin: General: Skin is warm and dry. Neurological: General: No focal deficit present. Mental Status: She is alert and oriented to person, place, and time. ALLERGIES Allergen Reactions Amoxicillin Rash rash arms trunk neck face, itching Chills Tolerates Ancef Medications insulin glargine (LANTUS SOLOSTAR U-100 INSULIN) 100 unit/mL (3 mL) Inject 26 Units subcutaneously every morning. DROPLET PEN NEEDLE 31 gauge x 3/16 1 each two times a day. hydroCHLOROthiazide 25 mg tablet Take 25 mg by mouth once daily. amLODIPine (NORVASC) 5 mg tablet Take 5 mg by mouth once daily. traZODone (DESYREL) 50 mg tablet Take 1 tablet by mouth daily at bedtime. metoprolol succinate ER (TOPROL XL) 25 mg 24 hr tablet take 1 tablet by mouth once daily exemestane (AROMASIN) 25 mg tablet Take 1 tablet by mouth once daily. losartan (COZAAR) 100 mg tablet Take 1 tablet by mouth every afternoon. ursodiol (LEENA) 250 mg tablet Take 250 mg by mouth two times a day. everolimus, antineoplastic, (AFINITOR) 10 mg tablet TAKE 1 TABLET ONCE DAILY Sodium Fluoride, Dental Rinse, 0.2 % SWISH 10 ML BY MOUTH THEN SPIT ONCE WEEKLY diphenhydrAMINE-Acetaminophen (TYLENOL PM EXTRA STRENGTH) 25-500 mg tab Take 1 tablet by mouth at bedtime as needed. AquacueTOUCH ULTRA PLUS TEST strp 1 Each two times a day. E11.65; No insulin Lancets Use with blood glucose test two times a day. Insulin Dep? No blood sugar diagnostic (BLOOD GLUCOSE TEST) test strip Use with blood glucose test two times a day. Insulin Dep? No aspirin, enteric coated (ASPIRIN, ENTERIC COATED) 81 mg EC tablet Take 81 mg by mouth once daily. pantoprazole DR (PROTONIX) 40 mg tablet Take 40 mg by mouth daily before breakfast. ascorbic acid, vitamin C, (VITAMIN C) 500 mg tablet Take 500 mg by mouth once daily. alpha tocopheryl acetate (VITAMIN E) 400 unit capsule Take 400 Units by mouth once daily. cyanocobalamin (VITAMIN B-12) 1,000 mcg tab Take 500 mcg by mouth once daily. VITAMIN D 50,000 unit capsule 1 capsule one time a week. CALCIUM CARBONATE (CALCIUM 500 ORAL) Take 1 tablet by mouth once daily. 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 Husam Hart in [place] Social History Tobacco Use Smoking status: Never Smokeless tobacco: Never Vaping Use Vaping status: Never Used Substance Use Topics Alcohol use: Yes Comment: 2 drinks per month Drug use: No 1. UTI symptoms (R39.9) - Symptoms include dysuria, fatigue, and urinary urgency; mild abdominal discomfort noted but improving. - UA in office confirms UTI. - Prescribed Ciprofloxacin; sent prescription to [facility] pharmacy. - Advised increased fluid intake to aid in resolution. - Instructed to report if symptoms persist; will consider urine culture if no improvement. Cathy Burr APRN.CNS Medical Decision Making: Problems: Low: Acute, uncomplicated illness or injury Data: Unique test(s) ordered: 2 Risk: Moderate: Drug management Medical Decision Making Level: 3 - Low documented in this encounter [facility] 09-07-2024 Note [facility] 09-03-2024 Note HNO ID: [id number] Author: NOE PASTRANA ST Service: ? Author Type: Surg Toddler Guide Type: Progress Notes Filed: 09/03/2024 13:30 Note Text: DATE OF PHOTOS: 09/03/2024 Body Part: Breasts and Arms NOE PASTRANA September 03, 2024 1:30 PM [facility] 09-03-2024 History of Present illness Narrative DATE OF PHOTOS: 09/03/2024 Body Part: Breasts and Arms NOE PASTRANA, September 03, 2024 1:30 PM documented in this encounter [facility] 09-03-2024 Instructions Valery Razo RN - 09/03/2024 1:24 PM EDT For an appointment call Rehabilitation [facility] Sports Therapy: [phone]. The general claims agent will assist you in selecting the location and specialty service that will best meet your needs. Lymphedema of left upper extremity documented in this encounter [facility] 09-03-2024 History of Present illness Narrative Plastic Surgery Post Op Note CC: post op HPI: Pat Sorto is a 64 year old female who presents s/p Date of Surgery: 05/18/2024 Surgery: Left Breast Total Capsulectomy and Implant Removal Time Postop: 3.5 months Pt presents for routine post-op visit. Pain: control is good with medications (Tylenol) Drainage from incisions: denies Fever/chills: denies Activity: able to participate in ADLs within recommended restrictions 06/04 35 cc seroma aspirated from left breast 06/25 60 cc seroma aspirated from left breast 07/06 40 cc seroma aspirated from left breast 07/15 25 cc seroma aspirated from left breast 08/03 19 cc seroma aspirated from left breast No symptoms or signs of infection (no N/V/F/C, no wound drainage and no new redness) Has prosthetic from [employer], is not interested in any further reconstruction Complains of swelling of left arm and hand, went to therapy last on 08/27/24 Hx Radiation Therapy: Yes- completed 12/2017 Hx Chemotherapy: Yes- completed in 2018 Hx of DM, on insulin HBa1c 6.8 recently Wiund culture from 06/25/24 WOUND CULTURE No growth Smear Result No organisms seen No Polymorphonuclear Leukocytes Surgical pathology FINAL DIAGNOSIS 1. Left chest, skin, excision (A) - Invasive ductal carcinoma, Negro grade 3, involving subcutis, dermis and epidermis (including ulceration), (see comment). 2. Left breast implant, excision and removal (B) - Amorphous acellular material. -Breast implant (gross evaluation only). 3. Left breast, inframammary fold, excision (C) - Invasive ductal carcinoma, [place] grade 3, spanning greater than 50 mm, involving capsule, subcutis, dermis and epidermis (including ulceration), (see comment). 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 Husam Hart in [place] PAST SURGICAL HISTORY Procedure Laterality Date ARTHRP ACETBLR/PROX FEM PROSTC AGRFT/ALGRFT Right 03/20/2019 Hip replacement, total ARTHRP KNE CONDYLE&PLATU MEDIAL&LAT COMPARTMENTS Left 02/2016 BIOPSY BREAST OPEN INCISIONAL Left 2007 [facility] benign pathology per patient BREAST RECONSTRUCTION Left 2019 fat graft/implant exchange DELIVERY ONLY 1996,1993 , low transverse MASTECTOMY HX Left 2017 AND with immediate reconstruction MASTECTOMY, SIMPLE, COMPLETE Left 05/18/2024 removal of implant, WLE of chest wall PAST SURGICAL HISTORY OF 2022 bronchoscopy Current Outpatient Medications on File Prior to Visit Medication Sig metoprolol succinate ER (TOPROL XL) 25 mg 24 hr tablet take 1 tablet by mouth once daily spironolactone (ALDACTONE) 25 mg tablet Take 1 tablet by mouth once daily. exemestane (AROMASIN) 25 mg tablet Take 1 tablet by mouth once daily. losartan (COZAAR) 100 mg tablet Take 1 tablet by mouth every afternoon. insulin glargine (LANTUS SOLOSTAR U-100 INSULIN) 100 unit/mL (3 mL) Inject 20 Units subcutaneously every morning. LORazepam (ATIVAN) 0.5 mg Take 1 tablet by mouth three times a day as needed for up to 90 days. DROPLET PEN NEEDLE 31 gauge x 3/16 1 Each two times a day. ursodiol (LEENA) 250 mg tablet Take 250 mg by mouth two times a day. everolimus, antineoplastic, (AFINITOR) 10 mg tablet TAKE 1 TABLET ONCE DAILY Sodium Fluoride, Dental Rinse, 0.2 % SWISH 10 ML BY MOUTH THEN SPIT ONCE WEEKLY diphenhydrAMINE-Acetaminophen (TYLENOL PM EXTRA STRENGTH) 25-500 mg tab Take 1 tablet by mouth at bedtime as needed. ONETOUCH ULTRA PLUS TEST strp 1 Each two times a day. E11.65; No insulin Lancets Use with blood glucose test two times a day. Insulin Dep? No blood sugar diagnostic (BLOOD GLUCOSE TEST) test strip Use with blood glucose test two times a day. Insulin Dep? No aspirin, enteric coated (ASPIRIN, ENTERIC COATED) 81 mg EC tablet Take 81 mg by mouth once daily. pantoprazole DR (PROTONIX) 40 mg tablet Take 40 mg by mouth daily before breakfast. ascorbic acid, vitamin C, (VITAMIN C) 500 mg tablet Take 500 mg by mouth once daily. alpha tocopheryl acetate (VITAMIN E) 400 unit capsule Take 400 Units by mouth once daily. cyanocobalamin (VITAMIN B-12) 1,000 mcg tab Take 500 mcg by mouth once daily. VITAMIN D 50,000 unit capsule 1 capsule one time a week. CALCIUM CARBONATE (CALCIUM 500 ORAL) Take 1 tablet by mouth once daily. No current facility-administered medications on file prior to visit. BP 135/81 Pulse 87 Temp 36.7 C (98 F) (Temporal) Resp 15 SpO2 99% PE Alert and oriented in NAD on room air Left breast flat closure, no fluid palpated on exam today Incisions c/d/I Swelling of left arm and hand ASSESSMENT/PLAN: post operative state Hx of left chest wall radiation Consult to lymphedema therapy placed today Educated patient on importance of compression and lymphedema management to help with swelling Briefly discussed LVB but swelling must be optimized prior to any intervention ICG request placed today Photos today Encouraged patient to communicate through MyChart for all non-urgent questions or concerns. If experiencing wound complications or have any questions or concerns during business hours call [phone] or after hours (after 5 pm or on the weekend) call [phone] and ask for the plastic surgery resident / fellow sale professional digital marketing for further instructions. If you have increasing swelling or bruising, particularly one side greater than the other. If swelling and redness persists after a few days. If you have increased redness along the incision. If you have severe or increased pain not relieved by medication. If you have an oral temperature of 100.4 degrees or higher. If you have any yellow or greenish drainage from the incisions or notice a foul smell. If you have bleeding from the incisions that is difficult to control with light pressure If you have new chest pain, shortness of breathe or difficulty breathing Return to clinic 3 months The patient is seen and examined by Dr Marcelino and the following reflects her service. Scribed by Valery Razo RN I agree with the Chief Complaint, ROS, and Past Histories independently gathered by the clinical help desk support and the remaining scribed note accurately describes my personal service to the patient. I spent 20 minutes in the visit, with more than 50% of the total [id number] time of the visit in counseling / coordination of care. Today's Office Visit: She has significant left upper extremity lymphedema which goes to her hand and makes holding a golf club difficult. She has not started compression yet. I discussed the importance of proper therapy. I will have her see Palomo for measurements and ICG and look to do a LVB. Micki Marcelino MD documented in this encounter [facility] 09-03-2024 Note [facility] 09-01-2024 Progress note Formatting of t his note might be different from the original. Her serum creatinine is elevated again and appears to be dehydration. Please ask her to remember to hydrate well daily. [facility] 09-01-2024 Miscellaneous Notes Her serum creatinine is elevated again and appears to be dehydration. Please ask her to remember to hydrate well daily. documented in this encounter [facility] 08-31-2024 Note HNO ID: [id number] Author: MILAGROS BROWN, PT Service: ? Author Type: Physical Therapist Type: Progress Notes Filed: 08/31/2024 10:42 Note Text: Episode Visit Count: 1 Therapist That Will Accept/Oversee The Plan Of Care: Milagros Brown PT Start of Care Date: 08/27/24 Onset Date: 05/18/24 (diagnosed with breast cancer 2017, subsequent mastectomy) Plan of Care Certification Date: 08/27/24 Next Certification Due Date: 10/26/24 Patient Identified by Name and Date of : Yes REHABILITATION AND SPORTS THERAPY PHYSICAL THERAPY EVALUATION PLAN OF CARE: Assessment: Pat Sorto presents with diagnosis of s/p left breast implant removal with left UE lymphedema that interferes with gripping, pulling, twisting . The patient presents with impairments in edema management. PROMIS? (Patient-Reported Outcomes Measurement Information System) scores were reviewed and identified as a rehabilitation concern. Prognosis for therapy is Good due to: current objective clinical presentation . Noting myofascial tightness in chest wall with good scar mobility, lymphedema left UE , hand. The patient will benefit from skilled therapy services to meet the goals established for this plan of care as noted below. Goals for Episode of Care: established 08/27/24 Patient / family knowledgeable re: all pertinent aspects of CDT Patient / family independent with donning / doffing compression garment and proper wearing schedule and care of garment Patient / family independent with home exercise program Patient will decrease circumferential measurements by 1-2 cm in the following areas: left UE and hand for decreased recurrence of infection, improved mobility, improved range of motion and allow appropriate fit in compressive garment . Patient Goals: Ease swelling Time Frame for Goals and Treatment : 09/28/24 Planned Interventions, Frequency, and Duration: Current Frequency: 2x/week Duration: 4 weeks Total Number of Visits Planned: 8 Planned Treatment Interventions: Therapeutic exercise (92876), Manual therapy (95257), Self-retirement management (84480), Patient/Family/Caregiver Education, Therapeutic activities (25595) (lymphedema program) PLAN FOR NEXT VISIT: lymphedema program Patient demonstrates good understanding of plan of care and treatment. The above goals and plan of care were discussed and agreed upon by patient/family. SUBJECTIVE: Diagnosed with breast cancer in 2018, mastectomy 2018, implant put in at time of mastectomy. 2 more surgeries following this then in May 2024 removed implant, scar tissue present and multiple seromas. Had reocurring cancer 2022, breast/skin. No therapy since. Had therapy in the past. Lymphedema has increased lately. Complains of twinging, pulling in left chest. On water pill but doesn't make a difference in swelling. Patient Goals: Ease swelling Functional Limitations: gripping, pulling, twisting Prior Level of Function: Independent without limitations Relevant History Past Relevant Medical Conditions: Comments Relevant Medical Conditions Comments: Chemotherapy-induced neuropathy (HCC) Axillary pain, left Chemotherapy-induced cardiomyopathy (HCC) Musculoskeletal chest pain Hypertension Primary biliary cirrhosis (HCC) Functional diarrhea Gastroesophageal reflux disease Type 2 diabetes mellitus without complication, with long-term current use of insulin (HCC) Antineoplastic chemotherapy induced anemia Malignant neoplasm of lower-outer quadrant of left breast of female, estrogen receptor positive (HCC) 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) Malignant neoplasm of left female breast (HCC) 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) Primary localized osteoarthritis of right hip Lumbar degenerative disc disease Musculoskeletal Status post right hip replacement Lymphedema of left arm Stomatitis and mucositis History of radiation therapy Past Relevant Surgical Conditions: Total Hip Replacement-Left, Total Knee Replacement-Left, Comments Relevant Surgical Conditions Comments: 05/18/2024 Mastectomy, simple, complete (Left) removal of implant, WLE of chest wall 2022 Past surgical history of bronchoscopy 03/20/2019 Arthrp acetblr/prox fem prostc agrft/algrft (Right) Hip replacement, total 2019 Breast reconstruction (Left) fat graft/implant exchange 2018 Mastectomy hx (Left) AND with immediate reconstruction 02/2016 Arthrp kne condyleANDplatu medialANDlat compartments (Left) 2008 Biopsy breast open incisional (Left) [facility] benign pathology per patient 1996,1993 delivery only , low transverse Right or Left Handed: Right Hobbies / Interests: golfing Intake Information: Prescription present Previous Treatment: Physical Therapy Falls Interview: No positive findings with falls interview Pain: Pain Pain Level: 0 Pain Location: Chest - Left Post Treatment Pa (more content not included)... [facility] 08-31-2024 History of Present illness Narrative Images from the original note were not included. Episode Visit Count: 1 Therapist That Will Accept/Oversee The Plan Of Care: Milagros Brown PT Start of Care Date: 08/27/24 Onset Date: 05/18/24 (diagnosed with breast cancer 2017, subsequent mastectomy) Plan of Care Certification Date: 08/27/24 Next Certification Due Date: 10/26/24 Patient Identified by Name and Date of : Yes REHABILITATION AND SPORTS THERAPY PHYSICAL THERAPY EVALUATION PLAN OF CARE: Assessment: Pat Sorto presents with diagnosis of s/p left breast implant removal with left UE lymphedema that interferes with gripping, pulling, twisting . The patient presents with impairments in edema management. PROMIS (Patient-Reported Outcomes Measurement Information System) scores were reviewed and identified as a rehabilitation concern. Prognosis for therapy is Good due to: current objective clinical presentation . Noting myofascial tightness in chest wall with good scar mobility, lymphedema left UE , hand. The patient will benefit from skilled therapy services to meet the goals established for this plan of care as noted below. Goals for Episode of Care: established 08/27/24 Patient / family knowledgeable re: all pertinent aspects of CDT Patient / family independent with donning / doffing compression garment and proper wearing schedule and care of garment Patient / family independent with home exercise program Patient will decrease circumferential measurements by 1-2 cm in the following areas: left UE and hand for decreased recurrence of infection, improved mobility, improved range of motion and allow appropriate fit in compressive garment . Patient Goals: Ease swelling Time Frame for Goals and Treatment : 09/28/24 Planned Interventions, Frequency, and Duration: Current Frequency: 2x/week Duration: 4 weeks Total Number of Visits Planned: 8 Planned Treatment Interventions: Therapeutic exercise (12960), Manual therapy (66026), Self-retirement management (42199), Patient/Family/Caregiver Education, Therapeutic activities (91217) (lymphedema program) PLAN FOR NEXT VISIT: lymphedema program Patient demonstrates good understanding of plan of care and treatment. The above goals and plan of care were discussed and agreed upon by patient/family. SUBJECTIVE: Diagnosed with breast cancer in 2017, mastectomy 2017, implant put in at time of mastectomy. 2 more surgeries following this then in May 2024 removed implant, scar tissue present and multiple seromas. Had reocurring cancer 2022, breast/skin. No therapy since. Had therapy in the past. Lymphedema has increased lately. Complains of twinging, pulling in left chest. On water pill but doesn't make a difference in swelling. Patient Goals: Ease swelling Functional Limitations: gripping, pulling, twisting Prior Level of Function: Independent without limitations Relevant History Past Relevant Medical Conditions: Comments Relevant Medical Conditions Comments: Chemotherapy-induced neuropathy (HCC) Axillary pain, left Chemotherapy-induced cardiomyopathy (HCC) Musculoskeletal chest pain Hypertension Primary biliary cirrhosis (HCC) Functional diarrhea Gastroesophageal reflux disease Type 2 diabetes mellitus without complication, with long-term current use of insulin (HCC) Antineoplastic chemotherapy induced anemia Malignant neoplasm of lower-outer quadrant of left breast of female, estrogen receptor positive (HCC) 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) Malignant neoplasm of left female breast (HCC) 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) Primary localized osteoarthritis of right hip Lumbar degenerative disc disease Musculoskeletal Status post right hip replacement Lymphedema of left arm Stomatitis and mucositis History of radiation therapy Past Relevant Surgical Conditions: Total Hip Replacement-Left, Total Knee Replacement-Left, Comments Relevant Surgical Conditions Comments: 05/18/2024 Mastectomy, simple, complete (Left) removal of implant, WLE of chest wall 2022 Past surgical history of bronchoscopy 03/20/2019 Arthrp acetblr/prox fem prostc agrft/algrft (Right) Hip replacement, total 2019 Breast reconstruction (Left) fat graft/implant exchange 2018 Mastectomy hx (Left) AND with immediate reconstruction 02/2016 Arthrp kne condyle&platu medial&lat compartments (Left) 2008 Biopsy breast open incisional (Left) [facility] benign pathology per patient 1996,1993 delivery only , low transverse Right or Left Handed: Right Hobbies / Interests: golfing Intake Information: Prescription present Previous Treatment: Physical Therapy Falls Interview: No positive findings with falls interview Pain: Pain Pain Level: 0 Pain Location: Chest - Left Post Treatment Pain Post Treatment Pain Level: No Change PROMIS Scales 08/27/2024 06/02/2019 Higher is Better Phys Func - T Score 41 (mild dysfunction) Phys Func - Percentile 18 Self-Eff Symptom - T Score 48 (Average) Self-Eff Symptom - Percentile 42 Upper Extremity - T Score 42 (mild dysfunction) Upper Extremity - Percentile 21 Proxy-reported 06/02/2019 Lower is Better Pain Interference - T Score 56 (mild) Pain Interference - Percentile 27 Proxy-reported T-scores: mean of general population = 50. 5 points is clinically meaningfully difference Percentiles provide an indication of how the patient's score ranks in relation to the general population. Higher percentile rankings indicate better function/quality of life. 50th percentile is the average of the general population and indicates half of respondents had a worse score. OBJECTIVE MEASURES WITH LEVEL OF FUNCTION: Cognition Cognition: (WNL) Posture / Alignment Posture: Forward head, Rounded shoulders Shoulder Observations L Shoulder Presents with: Incision Incision: healed incision at left breast following implant removal L Shoulder Palpation Tenderness: No tenderness noted, Comments L Shoulder Palpation Tenderness Comments: good mobility of chest scar, myofascial tightness throughout chest area, moderate edema more in right arm, hand with no cording noted Sensation - Upper Extremity UE Light Touch Sensation: Grossly Intact Cervical Spine ROM Cervical ROM : (Cervical ROM WNL) Lymphedema Presents with: Swelling Lymphedema is worse: At end of day Lymphedema Contributing Factors: Chemotherapy, Radiation, Lymph Node Removal Previous Lymphedema Treatment: (physical therapy lymphedema program) Skin: (WNL) Upper Extremity Circumferential Measurements L Thumb (proximal phalanx) (cm): 7 cm L Index Finger (proximal phalanx) (cm): 7 cm L Middle Finger (proximal phalanx) (cm): 6.5 cm L Ring Finger (proximal phalanx) (cm): 6.5 cm L Small Finger (proximal phalanx) (cm): 6.3 cm L DPC (cm): 21 cm L Distal Wrist Crease (DWC) (cm): 17.5 cm L 4 cm above wrist (cm): 20.6 cm L 8 cm above wrist (cm): 23.2 cm L 12 cm above wrist (cm): 26 cm L 16 cm above wrist (cm): 31 cm L 20 cm above wrist (cm): 30.8 cm L 24 cm above wrist (cm): 31.5 cm L 28 cm above wrist (cm): 33.3 cm L 32 cm above wrist (cm): 34.2 cm L 36 cm above wrist (cm): 36.7 cm L 40 cm above wrist (cm): 39 cm L 44 cm above wrist (cm): 39.3 cm L Upper Extremity Volume: 3376.23 UE AROM R UE AROM: WNL L UE AROM: WNL UE and Cervical Strength R UE Strength: 4+/5 L UE Strength: 4+/5 Gait Gait Observation: independent, no gait deviations or loss of balance Education: Education Learning Preferences: Demonstration, Explanation, Performance, Printed Materials Barriers: None Learning/educational needs: Home exercise program, Plan of Care, Lymphedema Program Education Provided: Yes, see treatment interventions for education provided Education Provided To: Patient Education Mode/Type: Explanation/Discussion Response to Education/Teach Back: States/Identifies TREATMENT: Evaluation Billing * Evaluation Low Complexity: 1 Unit Skilled Treatment Time Minutes (timed and untimed codes): 45 Total Session Time (minutes): 45 Session Start Time : 1105 Session Stop Time : 1150 Milagros Brown PT documented in this encounter [facility] 08-11-2024 History of Present illness Narrative Primary Care Pharmacy Visit CC (Reason for Consult): (E11.9) Type 2 diabetes mellitus without complication, unspecified whether fpc insulin use (HCC) (primary encounter diagnosis) Goal(s): A1c <8% per consult Last Collaborating Provider Visit: 06/05/24 with GIOVANNA Adamson Pat Sorto is a 64 year old female presenting for follow up visit telephone call. Patient consents to pharmacy collaborative practice agreement. Last Pharmacy Visit: 07/14/24 - Lantus increased HPI: Reports doing well States her BGs have been pretty steady lately, some spikes occasionally Starting to get some bloating and swelling since being off of the hydrochlorothiazide Has noticed some weight gain lately as well; however, no changes with diet/lifestyle Current DM Medications: Lantus 24 units once daily in the morning Previously Trialed DM Meds: Ozempic - diarrhea/vomiting Metformin - unable to tolerate Glipizide - stopped when insulin started by endo Diet Staying away from sugary drinks Rarely eating red meats Eats salads with oil and red wine vinegar as dressing Drinking a lot of water throughout GLYCEMIC CONTROL: Glucometer present at visit: Yes Hypoglycemia: No SMBGS (Fingersticks) Date Fasting AM Before Dinner 2 hr PP 5/6 151 5/5 186 5/4 190 5/3 153 5/2 188 5/1 147 247 08/05 151 111 08/04 148 08/02 175 124 08/01 115 258 07/31 155 07/30 110 AVG 155 205 Past medical history reviewed. ALLERGIES Allergen Reactions Amoxicillin Rash rash arms trunk neck face, itching Chills Tolerates Ancef Current Outpatient Medications Medication Sig Dispense Refill DROPLET PEN NEEDLE 31 gauge x 3/16 1 each two times a day. 300 each 3 insulin glargine (LANTUS SOLOSTAR U-100 INSULIN) 100 unit/mL (3 mL) Inject 24 Units subcutaneously every morning. 15 mL 1 hydroCHLOROthiazide 25 mg tablet Take 25 mg by mouth once daily. amLODIPine (NORVASC) 5 mg tablet Take 5 mg by mouth once daily. traZODone (DESYREL) 50 mg tablet Take 1 tablet by mouth daily at bedtime. 90 tablet 3 metoprolol succinate ER (TOPROL XL) 25 mg 24 hr tablet take 1 tablet by mouth once daily 90 tablet 3 exemestane (AROMASIN) 25 mg tablet Take 1 tablet by mouth once daily. 90 tablet 3 losartan (COZAAR) 100 mg tablet Take 1 tablet by mouth every afternoon. 90 tablet 3 ursodiol (LEENA) 250 mg tablet Take 250 mg by mouth two times a day. everolimus, antineoplastic, (AFINITOR) 10 mg tablet TAKE 1 TABLET ONCE DAILY 90 tablet 3 Sodium Fluoride, Dental Rinse, 0.2 % SWISH 10 ML BY MOUTH THEN SPIT ONCE WEEKLY diphenhydrAMINE-Acetaminophen (TYLENOL PM EXTRA STRENGTH) 25-500 mg tab Take 1 tablet by mouth at bedtime as needed. AquacueTOUCH ULTRA PLUS TEST strp 1 Each two times a day. E11.65; No insulin 200 Each 3 Lancets Use with blood glucose test two times a day. Insulin Dep? No 200 Each 3 blood sugar diagnostic (BLOOD GLUCOSE TEST) test strip Use with blood glucose test two times a day. Insulin Dep? No 200 Each 3 aspirin, enteric coated (ASPIRIN, ENTERIC COATED) 81 mg EC tablet Take 81 mg by mouth once daily. pantoprazole DR (PROTONIX) 40 mg tablet Take 40 mg by mouth daily before breakfast. ascorbic acid, vitamin C, (VITAMIN C) 500 mg tablet Take 500 mg by mouth once daily. alpha tocopheryl acetate (VITAMIN E) 400 unit capsule Take 400 Units by mouth once daily. cyanocobalamin (VITAMIN B-12) 1,000 mcg tab Take 500 mcg by mouth once daily. VITAMIN D 50,000 unit capsule 1 capsule one time a week. CALCIUM CARBONATE (CALCIUM 500 ORAL) Take 1 tablet by mouth once daily. No current facility-administered medications for this visit. Pill bottles are not present. Adherence: denies missed doses. Rx coverage: Payor: MEDICARE / Plan: MEDICARE A AND B / Product Type: Medicare / Medications affordable? Yes EXAM: There were no vitals taken for this visit. Last 3 Encounter BP Readings: Date: BP: 07/09/2024 121/86 06/25/2024 153/87 06/05/2024 162/103[bp average[ Wt: 75.8 kg (167 lb) BMI: 27.37 kg/(m^2) LABS: Lab Results Component Value Date HBA1C 6.8 07/08/2024 HBA1C 7.2 03/18/2024 HBA1C 9.1 07/16/2023 HBA1C 6.1 03/11/2023 HBA1C 5.9 02/19/2022 HBA1C 5.6 10/07/2018 HBA1C 5.7 05/20/2018 Glucose 150 08/04/2024 BUN 30 08/04/2024 Creatinine, Whole Blood (iSTAT) 1.06 08/04/2024 Sodium 141 08/04/2024 Potassium 4.1 08/04/2024 Chloride 105 08/04/2024 CO2 27 08/04/2024 Protein, Total 7.4 08/04/2024 Albumin 4.0 08/04/2024 Calcium 9.3 08/04/2024 Alkaline Phosphatase 67 08/04/2024 Bilirubin, Total 0.3 08/04/2024 AST 22 08/04/2024 ALT 16 08/04/2024 Lab Results Component Value Date CHOL 247 07/08/2024 CHOL 202 11/11/2023 CHOL 167 10/07/2018 LDL 162 07/08/2024 LDL 103 10/07/2018 HDL 39 07/08/2024 HDL 27 11/11/2023 HDL 34 10/07/2018 TG 230 07/08/2024 TG 250 11/11/2023 TG 151 10/07/2018 Albumin/Creat Ratio (mg/g) Date Value 07/08/2024 61 (H) eGFR-All Other Races (.) Date Value 02/15/2021 59 Estimated Glomerular Filtration Rate (mL/min/1.73m ) Date Value 08/04/2024 58 ASSESSMENT/PLAN: 1. Type 2 diabetes mellitus without complication, unspecified 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 insulin use (HCC) - ICD9: 250.00, ICD10: E11.9 - Controlled per A1c; however, AM FBGs averaging above goal - Increase Lantus 26 units once daily - Blood glucose monitoring on a twice daily schedule - Counseled on healthy diet and regular exercise - Discussed diabetic education issues of hypoglycemic/hyperglycemic symptoms - Follow up in 1 month, sooner should any other issues arise. Overdue Diabetes Health Maintenance: Health Maintenance - Diabetes Topic Date Due Diabetic Foot Exam Never done Follow Up: Next PCP visit: 03/23/25 Next endo visit: 10/14/24 Next PharmD visit: 09/08/24 Tatianna Crook, PharmD, BCACP Primary Care Clinical Putty Remover documented in this encounter [facility] 08-11-2024 Note [facility] 08-10-2024 Telephone encounter Note Images from the original note were not included. Most recent Endocrinology visit: Last encounter Visit on 04/15/2024 (with Daisy Titus) 02/05/2024 in [facility] with DAISY TITUS for Poorly control type 2 diabetes mellitus (HCC) 04/15/2024 in [facility] with DAISY TITUS for Diabetes mellitus treated with insulin (HCC) Upcoming Endocrinology Appointments - Next 365 Days Visit Type Date Time Department EST ANNIE PATIENT 10/14/2024 11:45 AM [facility] Requested Prescriptions Pending Prescriptions Disp Refills DROPLET PEN NEEDLE 31 gauge x / 300 each 3 Si each two times a day. Latest Ref Rng & Units 07/08/2024 03/18/2024 07/16/2023 Hemoglobin A1C Hemoglobin A1C 4.3 - 5.6 % 6.8 Hemoglobin A1C (POCT) 4.3 - 5.6 % 7.2 9.1 Latest Ref Rng & Units 06/03/2024 TSH TSH 0.270 - 4.200 mIU/L 2.770 Free T3: None on file in the last 12 months Free T4: None on file in the last 12 months Thyroglobulin: None on file in the last 12 months Vitamin D: None on file in the last 12 months Latest Ref Rng & Units 08/04/2024 07/08/2024 05/04/2024 Hematocrit Hematocrit 36.0 - 46.0 % 35.1 38.7 37.3 Latest Ref Rng & Units 08/04/2024 07/08/2024 06/03/2024 Creatinine Creatinine 0.58 - 0.96 mg/dL 1.06 1.16 1.15 Latest Ref Rng & Units 08/04/2024 07/08/2024 06/03/2024 eGFR EGFR >=60 mL/min/1.73m 58 52 53 Latest Ref Rng & Units 08/04/2024 07/08/2024 06/03/2024 Potassium Potassium 3.7 - 5.1 mmol/L 4.1 4.0 4.0 Testosterone: None on file in the last 12 months IGF: None on file in the last 12 months Prolactin: None on file in the last 12 months Cristal Davidson MA [facility] 08-10-2024 Miscellaneous Notes Images from the original note were not included. Most recent Endocrinology visit: Last encounter Visit on 04/15/2024 (with Daisy Titus) 02/05/2024 in [facility] with DAISY TITUS for Poorly control type 2 diabetes mellitus (HCC) 04/15/2024 in [facility] with DAISY TITUS for Diabetes mellitus treated with insulin (HCC) Upcoming Endocrinology Appointments - Next 365 Days Visit Type Date Time Department EST ANNIE PATIENT 10/14/2024 11:45 AM [facility] Requested Prescriptions Pending Prescriptions Disp Refills DROPLET PEN NEEDLE 31 gauge x 3/16 300 each 3 Si each two times a day. Latest Ref Rng & Units 07/08/2024 03/18/2024 07/16/2023 Hemoglobin A1C Hemoglobin A1C 4.3 - 5.6 % 6.8 Hemoglobin A1C (POCT) 4.3 - 5.6 % 7.2 9.1 Latest Ref Rng & Units 06/03/2024 TSH TSH 0.270 - 4.200 mIU/L 2.770 Free T3: None on file in the last 12 months Free T4: None on file in the last 12 months Thyroglobulin: None on file in the last 12 months Vitamin D: None on file in the last 12 months Latest Ref Rng & Units 08/04/2024 07/08/2024 05/04/2024 Hematocrit Hematocrit 36.0 - 46.0 % 35.1 38.7 37.3 Latest Ref Rng & Units 08/04/2024 07/08/2024 06/03/2024 Creatinine Creatinine 0.58 - 0.96 mg/dL 1.06 1.16 1.15 Latest Ref Rng & Units 08/04/2024 07/08/2024 06/03/2024 eGFR EGFR >=60 mL/min/1.73m 58 52 53 Latest Ref Rng & Units 08/04/2024 07/08/2024 06/03/2024 Potassium Potassium 3.7 - 5.1 mmol/L 4.1 4.0 4.0 Testosterone: None on file in the last 12 months IGF: None on file in the last 12 months Prolactin: None on file in the last 12 months Cristal Davidson MA documented in this encounter [facility] 08-03-2024 Instructions Brooke Batista RN - 08/03/2024 10:43 AM EDT Consult to breast rehab - Please call [phone] to schedule, change, cancel or confirm an appointment. - okay to resume activity/exercise slowly, easily progress -okay for water submersion (pools/ baths/ hot tub) when there are no open areas or scabs along incision and you are fully healed -okay for silicone sheets/scar massage if indicated -okay for skin/scar moisturizer, rec Aquaphor/Eucerin/Cerave -okay to sleep on your sides -Okay for tylenol alternating with ibuprofen for pain control (do not exceed 4 g tylenol in a 24 hour period, okay for ibuprofen 600-800 mg every 8 hours as needed for pain) Encouraged patient to communicate through MyChart for all non-urgent questions or concerns. If experiencing wound complications or have any questions or concerns during business hours call [phone] or after hours (after 5 pm or on the weekend) call [phone] and ask for the plastic surgery resident / fellow sale professional digital marketing for further instructions. If you have increasing swelling or bruising, particularly one side greater than the other. If swelling and redness persists after a few days. If you have increased redness along the incision. If you have severe or increased pain not relieved by medication. If you have an oral temperature of 100.4 degrees or higher. If you have any yellow or greenish drainage from the incisions or notice a foul smell. If you have bleeding from the incisions that is difficult to control with light pressure If you have new chest pain, shortness of breathe or difficulty breathing Return to clinic 09/[address] Marcelino documented in this encounter [facility] 08-03-2024 History of Present illness Narrative Plastic Surgery Post Op Note CC: post op HPI: Pat Sorto is a 64 year old female who presents s/p Date of Surgery: 05/18/2024 Surgery: Left Breast Total Capsulectomy and Implant Removal Time Postop: 11 weeks Pt presents for routine post-op visit. Pain: control is good with medications (Tylenol) Drainage from incisions: denies Fever/chills: denies Activity: able to participate in ADLs within recommended restrictions Appetite: low appetite 06/04 35 cc seroma aspirated from left breast 06/25 60 cc seroma aspirated from left breast 07/06 40 cc seroma aspirated from left breast 07/15 25 cc seroma aspirated from left breast Is unsure if left breast has seroma re accumulation, if anything a very small one No symptoms or signs of infection (no N/V/F/C, no wound drainage and no new redness) Completed course of doxycycline prior to last office visit Has prosthetic from [employer], is not interested in any further reconstruction Has some tightness to left upper extremity- [facility] Hx Radiation Therapy: Yes- completed 12/2017 Hx Chemotherapy: Yes- completed in 2018 Hx of DM, on insulin HBa1c 6.8 recently Wiund culture from 06/25/24 WOUND CULTURE No growth Smear Result No organisms seen No Polymorphonuclear Leukocytes Surgical pathology FINAL DIAGNOSIS 1. 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 2. Left breast implant, excision and removal (B) - Amorphous acellular material. -Breast implant (gross evaluation only). 3. Left breast, inframammary fold, excision (C) - Invasive ductal carcinoma, [place] grade 3, spanning greater than 50 mm, involving capsule, subcutis, dermis and epidermis (including ulceration), (see comment). 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 Husam Hart in [place] PAST SURGICAL HISTORY Procedure Laterality Date ARTHRP ACETBLR/PROX FEM PROSTC AGRFT/ALGRFT Right 03/20/2019 Hip replacement, total ARTHRP KNE CONDYLE&PLATU MEDIAL&LAT COMPARTMENTS Left 02/2016 BIOPSY BREAST OPEN INCISIONAL Left 2007 [facility] benign pathology per patient BREAST RECONSTRUCTION Left 2018 fat graft/implant exchange DELIVERY ONLY 1996,1993 , low transverse MASTECTOMY HX Left 2018 AND with immediate reconstruction MASTECTOMY, SIMPLE, COMPLETE Left 05/18/2024 removal of implant, WLE of chest wall PAST SURGICAL HISTORY OF 2022 bronchoscopy Current Outpatient Medications on File Prior to Visit Medication Sig metoprolol succinate ER (TOPROL XL) 25 mg 24 hr tablet take 1 tablet by mouth once daily spironolactone (ALDACTONE) 25 mg tablet Take 1 tablet by mouth once daily. exemestane (AROMASIN) 25 mg tablet Take 1 tablet by mouth once daily. losartan (COZAAR) 100 mg tablet Take 1 tablet by mouth every afternoon. insulin glargine (LANTUS SOLOSTAR U-100 INSULIN) 100 unit/mL (3 mL) Inject 20 Units subcutaneously every morning. LORazepam (ATIVAN) 0.5 mg Take 1 tablet by mouth three times a day as needed for up to 90 days. DROPLET PEN NEEDLE 31 gauge x 3/16 1 Each two times a day. ursodiol (LEENA) 250 mg tablet Take 250 mg by mouth two times a day. everolimus, antineoplastic, (AFINITOR) 10 mg tablet TAKE 1 TABLET ONCE DAILY Sodium Fluoride, Dental Rinse, 0.2 % SWISH 10 ML BY MOUTH THEN SPIT ONCE WEEKLY diphenhydrAMINE-Acetaminophen (TYLENOL PM EXTRA STRENGTH) 25-500 mg tab Take 1 tablet by mouth at bedtime as needed. GetOutfittedUCH ULTRA PLUS TEST strp 1 Each two times a day. E11.65; No insulin Lancets Use with blood glucose test two times a day. Insulin Dep? No blood sugar diagnostic (BLOOD GLUCOSE TEST) test strip Use with blood glucose test two times a day. Insulin Dep? No aspirin, enteric coated (ASPIRIN, ENTERIC COATED) 81 mg EC tablet Take 81 mg by mouth once daily. pantoprazole DR (PROTONIX) 40 mg tablet Take 40 mg by mouth daily before breakfast. ascorbic acid, vitamin C, (VITAMIN C) 500 mg tablet Take 500 mg by mouth once daily. alpha tocopheryl acetate (VITAMIN E) 400 unit capsule Take 400 Units by mouth once daily. cyanocobalamin (VITAMIN B-12) 1,000 mcg tab Take 500 mcg by mouth once daily. VITAMIN D 50,000 unit capsule 1 capsule one time a week. CALCIUM CARBONATE (CALCIUM 500 ORAL) Take 1 tablet by mouth once daily. No current facility-administered medications on file prior to visit. There were no vitals taken for this visit. PE Alert and oriented in NAD on room air Left breast flat closure- fluid collection palpated centrally- smaller than previous Incisions c/d/i Drainage seroma/hematoma Procedure Note- Location: left breast Safety check performed The patient agreed on the procedure to be done Left breast prepped with chloraprep and sterilely draped A 21 gauge butterfly needle was inserted into the left breast, fluid collection yielding 19 cc ss fluid A dry sterile dressing was applied The patient tolerated the procedure well. ASSESSMENT/PLAN: post operative state Left breast seroma Hx of left chest wall radiation Aspiration of seroma today as above Consult breast rehab Encouraged patient to communicate through [facility] for all non-urgent questions or concerns. If experiencing wound complications or have any questions or concerns during business hours call [phone] or after hours (after 5 pm or on the weekend) call [phone] and ask for the plastic surgery resident / fellow sale professional digital marketing for further instructions. If you have increasing swelling or bruising, particularly one side greater than the other. If swelling and redness persists after a few days. If you have increased redness along the incision. If you have severe or increased pain not relieved by medication. If you have an oral temperature of 100.4 degrees or higher. If you have any yellow or greenish drainage from the incisions or notice a foul smell. If you have bleeding from the incisions that is difficult to control with light pressure If you have new chest pain, shortness of breathe or difficulty breathing Return to clinic 09/[address] Marcelino The patient is seen and examined by Micki Butler APRN.CNP and the following reflects her service. Scribed by Brooke Batista RN I agree with the Chief Complaint, ROS, and Past Histories independently gathered by the clinical help desk support and the remaining scribed note accurately describes my personal service to the patient. Micki Butler APRN.CNP August 03, 2024 documented in this encounter [facility] 08-03-2024 Note [facility] 07-17-2024 Progress note Formatting of t his note might be different from the original. NSR, some increased ectopy when compared to previous, remains less than 1% [facility] 07-17-2024 Miscellaneous Notes NSR, some increased ectopy when compared to previous, remains less than 1% documented in this encounter [facility] 07-15-2024 Instructions Katie Carter RN - 07/15/2024 1:09 PM EDT Please call [phone] for Breast Rehab documented in this encounter [facility] 07-15-2024 History of Present illness Narrative Plastic Surgery Post Op Note CC: post op HPI: Pat Sorto is a 64 year old female who presents s/p Date of Surgery: 05/18/2024 Surgery: Left Breast Total Capsulectomy and Implant Removal Time Postop: 8 weeks Pt presents for routine post-op visit. Pain: control is good with medications (Tylenol) Drainage from incisions: denies Fever/chills: denies Activity: able to participate in ADLs within recommended restrictions Appetite: low appetite 06/04 35 cc seroma aspirated from left breast 06/25 60 cc seroma aspirated from left breast 07/06 40 cc seroma aspirated from left breast Left breast has some fluid reaccumulation. Completed course of doxycycline that was ordered at [facility]. Hx Radiation Therapy: Yes- completed 12/2017 Hx Chemotherapy: Yes- completed in 2018 Hx of DM, on insulin HBa1c 6.8 recently Wiund culture from 06/25/24 WOUND CULTURE No growth Smear Result No organisms seen No Polymorphonuclear Leukocytes Surgical pathology FINAL DIAGNOSIS 1. 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 2. Left breast implant, excision and removal (B) - Amorphous acellular material. -Breast implant (gross evaluation only). 3. Left breast, inframammary fold, excision (C) - Invasive ductal carcinoma, [place] grade 3, spanning greater than 50 mm, involving capsule, subcutis, dermis and epidermis (including ulceration), (see comment). 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 Husam Hart in [place] PAST SURGICAL HISTORY Procedure Laterality Date ARTHRP ACETBLR/PROX FEM PROSTC AGRFT/ALGRFT Right 03/20/2019 Hip replacement, total ARTHRP KNE CONDYLE&PLATU MEDIAL&LAT COMPARTMENTS Left 02/2016 BIOPSY BREAST OPEN INCISIONAL Left 2007 [facility] benign pathology per patient BREAST RECONSTRUCTION Left 2018 fat graft/implant exchange DELIVERY ONLY 1996,1993 , low transverse MASTECTOMY HX Left 2017 AND with immediate reconstruction MASTECTOMY, SIMPLE, COMPLETE Left 05/18/2024 removal of implant, WLE of chest wall PAST SURGICAL HISTORY OF 2022 bronchoscopy Current Outpatient Medications on File Prior to Visit Medication Sig metoprolol succinate ER (TOPROL XL) 25 mg 24 hr tablet take 1 tablet by mouth once daily spironolactone (ALDACTONE) 25 mg tablet Take 1 tablet by mouth once daily. exemestane (AROMASIN) 25 mg tablet Take 1 tablet by mouth once daily. losartan (COZAAR) 100 mg tablet Take 1 tablet by mouth every afternoon. insulin glargine (LANTUS SOLOSTAR U-100 INSULIN) 100 unit/mL (3 mL) Inject 20 Units subcutaneously every morning. LORazepam (ATIVAN) 0.5 mg Take 1 tablet by mouth three times a day as needed for up to 90 days. DROPLET PEN NEEDLE 31 gauge x 3/16 1 Each two times a day. ursodiol (LEENA) 250 mg tablet Take 250 mg by mouth two times a day. everolimus, antineoplastic, (AFINITOR) 10 mg tablet TAKE 1 TABLET ONCE DAILY Sodium Fluoride, Dental Rinse, 0.2 % SWISH 10 ML BY MOUTH THEN SPIT ONCE WEEKLY diphenhydrAMINE-Acetaminophen (TYLENOL PM EXTRA STRENGTH) 25-500 mg tab Take 1 tablet by mouth at bedtime as needed. AquacueTOUCH ULTRA PLUS TEST strp 1 Each two times a day. E11.65; No insulin Lancets Use with blood glucose test two times a day. Insulin Dep? No blood sugar diagnostic (BLOOD GLUCOSE TEST) test strip Use with blood glucose test two times a day. Insulin Dep? No aspirin, enteric coated (ASPIRIN, ENTERIC COATED) 81 mg EC tablet Take 81 mg by mouth once daily. pantoprazole DR (PROTONIX) 40 mg tablet Take 40 mg by mouth daily before breakfast. ascorbic acid, vitamin C, (VITAMIN C) 500 mg tablet Take 500 mg by mouth once daily. alpha tocopheryl acetate (VITAMIN E) 400 unit capsule Take 400 Units by mouth once daily. cyanocobalamin (VITAMIN B-12) 1,000 mcg tab Take 500 mcg by mouth once daily. VITAMIN D 50,000 unit capsule 1 capsule one time a week. CALCIUM CARBONATE (CALCIUM 500 ORAL) Take 1 tablet by mouth once daily. No current facility-administered medications on file prior to visit. There were no vitals taken for this visit. PE Alert and oriented in NAD on room air Left breast flat closure- fluid collection palpated centrally- smaller than previous Scab and redness along left breast IMF has now resolved Drainage seroma/hematoma Procedure Note- Location: left breast Safety check performed The patient agreed on the procedure to be done Left breast prepped with chloraprep and sterilely draped A 21 gauge butterfly needle was inserted into the left breast, fluid collection yielding 25 cc ss fluid A dry sterile dressing was applied The patient tolerated the procedure well. ASSESSMENT/PLAN: post operative state Left breast seroma Aspiration of seroma today as above - okay to resume activity/exercise slowly, easily progress -okay for water submersion (pools/ baths/ hot tub) when there are no open areas or scabs along incision and you are fully healed -okay for silicone sheets/scar massage if indicated -okay for skin/scar moisturizer, rec Aquaphor/Eucerin/Cerave -okay to sleep on your sides -Okay for tylenol alternating with ibuprofen for pain control (do not exceed 4 g tylenol in a 24 hour period, okay for ibuprofen 600-800 mg every 8 hours as needed for pain) Encouraged [facility] for all non-urgent questions or concerns. If experiencing wound complications or have any questions or concerns during business hours call [phone] or after hours (after 5 pm or on the weekend) call [phone] and ask for the plastic surgery resident / fellow sale professional digital marketing for further instructions. If you have increasing swelling or bruising, particularly one side greater than the other. If swelling and redness persists after a few days. If you have increased redness along the incision. If you have severe or increased pain not relieved by medication. If you have an oral temperature of 100.4 degrees or higher. If you have any yellow or greenish drainage from the incisions or notice a foul smell. If you have bleeding from the incisions that is difficult to control with light pressure If you have new chest pain, shortness of breathe or difficulty breathing Return to clinic 3 weeks or sooner if indicated The patient is seen and examined by Micki Butler APRN.CNP and the following reflects her service. Scribed by Katie Carter RN I agree with the Chief Complaint, ROS, and Past Histories independently gathered by the clinical help desk support and the remaining scribed note accurately describes my personal service to the patient. Micki Butler APRN.CNP July 15, 2024 documented in this encounter [facility] 07-15-2024 Note HNO ID: [id number] Author: MICKI BUTLER APRN.CNP Service: ? Author Type: Nurse Practitioner Type: Progress Notes Filed: 07/15/2024 13:31 Note Text: Plastic Surgery Post Op Note CC: post op HPI: Pta Sorto is a 64 year old female who presents s/p Date of Surgery: 05/18/2024 Surgery: Left Breast Total Capsulectomy and Implant Removal Time Postop: 8 weeks Pt presents for routine post-op visit. Pain: control is good with medications (Tylenol) Drainage from incisions: denies Fever/chills: denies Activity: able to participate in ADLs within recommended restrictions Appetite: low appetite 06/04 35 cc seroma aspirated from left breast 06/25 60 cc seroma aspirated from left breast 07/06 40 cc seroma aspirated from left breast Left breast has some fluid reaccumulation. Completed course of doxycycline that was ordered at [facility]. Hx Radiation Therapy: Yes- completed 12/2017 Hx Chemotherapy: Yes- completed in 2018 Hx of DM, on insulin HBa1c 6.8 recently Wiund culture from 06/25/24 WOUND CULTURE No growth Smear Result No organisms seen No Polymorphonuclear Leukocytes Surgical pathology FINAL DIAGNOSIS 1. 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 2. Left breast implant, excision and removal (B) - Amorphous acellular material. -Breast implant (gross evaluation only). 3. Left breast, inframammary fold, excision (C) - Invasive ductal carcinoma, [place] grade 3, spanning greater than 50 mm, involving capsule, subcutis, dermis and epidermis (including ulceration), (see comment). 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 Husam Hart in [place] PAST SURGICAL HISTORY Procedure Laterality Date ARTHRP ACETBLR/PROX FEM PROSTC AGRFT/ALGRFT Right 03/20/2019 Hip replacement, total ARTHRP KNE CONDYLEANDPLATU MEDIALANDLAT COMPARTMENTS Left 02/2016 BIOPSY BREAST OPEN INCISIONAL Left 2007 [facility] benign pathology per patient BREAST RECONSTRUCTION Left 2018 fat graft/implant exchange DELIVERY ONLY 1996,1993 , low transverse MASTECTOMY HX Left 2017 AND with immediate reconstruction MASTECTOMY, SIMPLE, COMPLETE Left 05/18/2024 removal of implant, WLE of chest wall PAST SURGICAL HISTORY OF 2022 bronchoscopy Current Outpatient Medications on File Prior to Visit Medication Sig metoprolol succinate ER (TOPROL XL) 25 mg 24 hr tablet take 1 tablet by mouth once daily spironolactone (ALDACTONE) 25 mg tablet Take 1 tablet by mouth once daily. exemestane (AROMASIN) 25 mg tablet Take 1 tablet by mouth once daily. losartan (COZAAR) 100 mg tablet Take 1 tablet by mouth every afternoon. insulin glargine (LANTUS SOLOSTAR U-100 INSULIN) 100 unit/mL (3 mL) Inject 20 Units subcutaneously every morning. LORazepam (ATIVAN) 0.5 mg Take 1 tablet by mouth three times a day as needed for up to 90 days. DROPLET PEN NEEDLE 31 gauge x 3/16 1 Each two times a day. ursodiol (LEENA) 250 mg tablet Take 250 mg by mouth two times a day. everolimus, antineoplastic, (AFINITOR) 10 mg tablet TAKE 1 TABLET ONCE DAILY Sodium Fluoride, Dental Rinse, 0.2 % SWISH 10 ML BY MOUTH THEN SPIT ONCE WEEKLY diphenhydrAMINE-Acetaminophen (TYLENOL PM EXTRA STRENGTH) 25-500 mg tab Take 1 tablet by mouth at bedtime as needed. ONETOUCH ULTRA PLUS TEST strp 1 Each two times a day. E11.65; No insulin Lancets Use with blood glucose test two times a day. Insulin Dep? No blood sugar diagnostic (BLOOD GLUCOSE TEST) test strip Use with blood glucose test two times a day. Insulin Dep? No aspirin, enteric coated (ASPIRIN, ENTERIC COATED) 81 mg EC tablet Take 81 mg by mouth once daily. pantoprazole DR (PROTONIX) 40 mg tablet Take 40 mg by mouth daily before breakfast. ascorbic acid, vitamin C, (VITAMIN C) 500 mg tablet Take 500 mg by mouth once daily. alpha tocopheryl acetate (VITAMIN E) 400 unit capsule Take 400 Units by mouth once daily. cyanocobalamin (VITAMIN B-12) 1,000 mcg tab Take 500 mcg by mouth once daily. VITAMIN D 50,000 unit capsule 1 capsule one time a week. CALCIUM CARBONATE (CALCIUM 500 ORAL) Take 1 tablet by mouth once daily. No current facility-administered medications on file prior to visit. There were no vitals taken for this visit. PE Alert and oriented in NAD on room air Left breast flat closure- fluid collection palpated centrally- smaller than previous Scab and redness along left breast IMF has now resolved Drainage seroma/hematoma Procedure Note- Location: left breast Safety check p (more content not included)... [facility] 07-14-2024 History of Present illness Narrative Primary Care Pharmacy Visit CC (Reason for Consult): (E11.9) Type 2 diabetes mellitus without complication, unspecified whether fpc insulin use (HCC) (primary encounter diagnosis) Goal(s): A1c <8% per consult Last Collaborating Provider Visit: 06/05/24 with Cathy Burr, FLOORING MACHINE FEEDER - metoprolol succinate started Pat Sorto is a 64 year old female presenting for follow up visit telephone call. Patient consents to pharmacy collaborative practice agreement. Last Pharmacy Visit: 06/16/24 - no changes made HPI: Reports doing well Sugars have been up - noticed with the restart of affinitor Patient asked if any of her other medications besides affinitor could be causing change in blood glucose since she has started many new medications lately Advised high blood sugars likely due to affinitor being added back Discussed with patient benefits of adding a statin Patient interested in adding statin in the near future but wants to hold off today to focus more on diabetes control at this time Current DM Medications: Lantus 20 units once daily Previously Trialed DM Meds: Ozempic - diarrhea/vomiting Metformin - unable to tolerate Glipizide - stopped when insulin started by endo Diet Limiting red meat lately, slight improvement in diet per patient GLYCEMIC CONTROL: Glucometer present at visit: Yes Hypoglycemia: No SMBGS (Fingersticks) Date Fasting AM 2 hr PP 07/14 176 07/13 202 188 07/12 195 297 07/11 182 07/10 185 215 07/09 170 166 07/08 136 118 07/07 154 241 07/06 174 246 07/05 206 241 AVG 178 214 7-day: 186 14-day: 195 30-day: 176 Past medical history reviewed. ALLERGIES Allergen Reactions Amoxicillin Rash rash arms trunk neck face, itching Chills Tolerates Ancef Current Outpatient Medications Medication Sig Dispense Refill hydroCHLOROthiazide 25 mg tablet Take 25 mg by mouth once daily. amLODIPine (NORVASC) 5 mg tablet Take 5 mg by mouth once daily. traZODone (DESYREL) 50 mg tablet Take 1 tablet by mouth daily at bedtime. 90 tablet 3 metoprolol succinate ER (TOPROL XL) 25 mg 24 hr tablet take 1 tablet by mouth once daily 90 tablet 3 spironolactone (ALDACTONE) 25 mg tablet Take 1 tablet by mouth once daily. (Patient not taking: Reported on 07/09/2024) 90 tablet 3 exemestane (AROMASIN) 25 mg tablet Take 1 tablet by mouth once daily. 90 tablet 3 losartan (COZAAR) 100 mg tablet Take 1 tablet by mouth every afternoon. 90 tablet 3 insulin glargine (LANTUS SOLOSTAR U-100 INSULIN) 100 unit/mL (3 mL) Inject 20 Units subcutaneously every morning. LORazepam (ATIVAN) 0.5 mg Take 1 tablet by mouth three times a day as needed for up to 90 days. 90 tablet 2 DROPLET PEN NEEDLE 31 gauge x 16 1 Each two times a day. ursodiol (LEENA) 250 mg tablet Take 250 mg by mouth two times a day. everolimus, antineoplastic, (AFINITOR) 10 mg tablet TAKE 1 TABLET ONCE DAILY 90 tablet 3 Sodium Fluoride, Dental Rinse, 0.2 % SWISH 10 ML BY MOUTH THEN SPIT ONCE WEEKLY diphenhydrAMINE-Acetaminophen (TYLENOL PM EXTRA STRENGTH) 25-500 mg tab Take 1 tablet by mouth at bedtime as needed. AquacueTOUCH ULTRA PLUS TEST strp 1 Each two times a day. E11.65; No insulin 200 Each 3 Lancets Use with blood glucose test two times a day. Insulin Dep? No 200 Each 3 blood sugar diagnostic (BLOOD GLUCOSE TEST) test strip Use with blood glucose test two times a day. Insulin Dep? No 200 Each 3 aspirin, enteric coated (ASPIRIN, ENTERIC COATED) 81 mg EC tablet Take 81 mg by mouth once daily. pantoprazole DR (PROTONIX) 40 mg tablet Take 40 mg by mouth daily before breakfast. ascorbic acid, vitamin C, (VITAMIN C) 500 mg tablet Take 500 mg by mouth once daily. alpha tocopheryl acetate (VITAMIN E) 400 unit capsule Take 400 Units by mouth once daily. cyanocobalamin (VITAMIN B-12) 1,000 mcg tab Take 500 mcg by mouth once daily. VITAMIN D 50,000 unit capsule 1 capsule one time a week. CALCIUM CARBONATE (CALCIUM 500 ORAL) Take 1 tablet by mouth once daily. No current facility-administered medications for this visit. Pill bottles are not present. Adherence: denies missed doses. Rx coverage: Payor: MEDICARE / Plan: MEDICARE A AND B / Product Type: Medicare Medications affordable? Yes PHARMACOTHERAPY PREVENTATIVE MEDS: On LATISHA/ARB: Yes On Statin: No On ASA: Yes The 10-year ASCVD risk score (Jacob DASILVA, et al., 2019) is: 16% Values used to calculate the score: Age: 64 years Sex: Female Is Non- : No Diabetic: Yes Tobacco smoker: No Systolic Blood Pressure: 121 mmHg Is BP treated: Yes HDL Cholesterol: 39 mg/dL Total Cholesterol: 247 mg/dL EXAM: There were no vitals taken for this visit. Last 3 Encounter BP Readings: Date: BP: 07/09/2024 121/86 06/25/2024 153/87 06/05/2024 162/103[bp average[ Wt: 75.8 kg (167 lb) BMI: 27.37 kg/(m^2) LABS: Lab Results Component Value Date HBA1C 6.8 07/08/2024 HBA1C 7.2 03/18/2024 HBA1C 9.1 07/16/2023 HBA1C 6.1 03/11/2023 HBA1C 5.9 02/19/2022 HBA1C 5.6 10/07/2018 HBA1C 5.7 05/20/2018 Glucose 216 07/08/2024 BUN 45 07/08/2024 Creatinine, Whole Blood (iSTAT) 1.16 07/08/2024 Sodium 135 07/08/2024 Potassium 4.0 07/08/2024 Chloride 99 07/08/2024 CO2 28 07/08/2024 Protein, Total 7.7 07/08/2024 Albumin 4.1 07/08/2024 Calcium 9.6 07/08/2024 Alkaline Phosphatase 70 07/08/2024 Bilirubin, Total 0.3 07/08/2024 AST 16 07/08/2024 ALT 12 07/08/2024 Lab Results Component Value Date CHOL 247 07/08/2024 CHOL 202 11/11/2023 CHOL 167 10/07/2018 LDL 162 07/08/2024 LDL 103 10/07/2018 HDL 39 07/08/2024 HDL 27 11/11/2023 HDL 34 10/07/2018 TG 230 07/08/2024 TG 250 11/11/2023 TG 151 10/07/2018 Albumin/Creat Ratio (mg/g) Date Value 07/08/2024 61 (H) eGFR-All Other Races (.) Date Value 02/15/2021 59 Estimated Glomerular Filtration Rate (mL/min/1.73m ) Date Value 07/08/2024 52 ASSESSMENT/PLAN: 1. Type 2 diabetes mellitus without complication, unspecified whether fpc insulin use (HCC) - ICD9: 250.00, ICD10: E11.9 - Worsening control - Increase Lantus to 24 units once daily (new prescription sent) - Blood glucose monitoring on a twice daily schedule - Consider adding statin at future appointment - Discussed diabetic education issues of hypoglycemic/hyperglycemic symptoms - Follow up in 1 month, sooner should any other issues arise. Overdue Diabetes Health Maintenance: Health Maintenance - Diabetes Topic Date Due Diabetic Foot Exam Never done Follow Up: Next endocrinology visit: 10/14/24 Next PCP visit: 03/23/25 Next PharmD visit: 08/11/24 Elisabeth Benjamin RPh Patient interviewed independently by the resident. [place] elements of history confirmed. Agree with findings and plan as outlined by the resident. My additions to the progress note are underlined. Tatianna Crook PharmD, BCACP Primary Care Clinical Putty Remover documented in this encounter [facility] 07-14-2024 Note [facility] 07-14-2024 Note [facility] 07-13-2024 Telephone encounter Note I spoke with the patient and answered all questions. Patient to keep all appointments as scheduled. Svetlana Kong LPN [facility] 07-13-2024 Miscellaneous Notes I spoke with the patient and answered all questions. Patient to keep all appointments as scheduled. Svetlana Kong LPN I called and spoke to Pat and let her know the below information. She questioned if no further imaging means that she won't have it again unless theres a problem or if that means it might just be a year or 2 until the next one is ordered? Also patient asked if her PET scan results looked good? Please advise and we can let patient know Edilia Hughes Can let her know the ultrasound thyroid showed one nodule that stable and appears benign compared to the previous ultrasound from 2020. No further imaging needed for thyroid. documented in this encounter [facility] 07-12-2024 Telephone encounter Note I called and spoke to Pat and let her know the below information. She questioned if no further imaging means that she won't have it again unless theres a problem or if that means it might just be a year or 2 until the next one is ordered? Also patient asked if her PET scan results looked good? Please advise and we can let patient know Edilia Hughes [facility] 07-10-2024 Telephone encounter Note Can let her know the ultrasound thyroid showed one nodule that stable and appears benign compared to the previous ultrasound from 2020. No further imaging needed for thyroid. [facility] 07-09-2024 Note [facility] 07-09-2024 History of Present illness Narrative Diagnosis: 1) Breast cancer. HPI: The patient is a 64-year-old female who has a past medical history significant for hypertension and primary biliary cirrhosis. She is seen by her mems process engineer approximately once a year and she has had stable findings. Most recent liver chemistries performed at [facility] on 01/10/2017 showed a total bilirubin of 0.3 mg/dL with a direct bilirubin of 0.09 mg/dL. The AST was 19 and the ALT was 23. Alkaline phosphatase was 95. CBC at that time was normal with a white count of 8900. No differential. Hemoglobin 12.2 g/dL platelet count 237,000. Coagulation studies showed a normal INR 1.0 with a PT of 13.0 seconds. Evidently she was on a trip to [place] about 2 1/2 years ago when she developed pleuritic right-sided chest pain. She presented to local ER there. She's not sure what radiographic studies were done but she was told that there was a concern she had lung cancer and she was to follow-up when she got back home. Over the last 2 years she's had a number of radiographic studies including CT of the chest as well as PET scan last year that showed no evidence of malignancy. She's had pain under left breast that was attributed to rib fracture with healing. Over the last year there's been a lump in lower left breast thought associated to healing underlying rib fracture. Core needle biopsy performed on 03/29/2017: Left breast, core biopsy: Invasive ductal carcinoma, nuclear grade 2 (1.3 cm in greatest length). ER (clone [id number]) >95%, strong SC (clone [id number]/[id number]) >95%, strong Her-2Neu (clone [id number]) 0 There was a spiculated mass at the lower outer left breast measuring 2.7 x 1.8 x 3.5 cm with central clip artifact consistent with the biopsy-proven malignancy. It was in the posterior depth but there was no evidence of chest wall involvement. There were no other abnormal areas of enhancement within the left breast. There were 2 abnormally thickened enhancing lymph nodes high in the left axilla that were suspicious for axillary node metastases. There are also several rounded nodes in the left high subpectoral region with the largest measuring 7 mm in short axis. These were noted to be suspicious. A possible 4 mm in short axis left internal mammary node was also appreciated. Full staging workup including CT scans of the chest, abdomen and pelvis as well as brain MRI and whole-body bone scan shows some mild activity in the distal femur on the right. Plain films showed degenerative changes without any osteoblastic or osteolytic activity. The CT scans disclosed 2 hypodense lesions in the liver that on MRI had signal characteristics consistent with hemangioma. Brain MRI was normal. Previous therapy: 1) Neoadjuvant AC followed by Taxol. 2) Underwent a left nipple sparing mastectomy with left axillary lymph node dissection and left arm reverse axillary mapping on 10/08/2017. This was done in conjunction with a implant and acellular dermal matrix with a lymphatico-venous bypass to the left axilla. 3) Adjuvant radiation to left chest wall/axilla and supraclavicular area completed 01/02/2018. Pathology from 10/08/2017 surgery: 1. Left axillary contents, excision (A) - Four of five lymph nodes, positive for metastatic carcinoma (4/5) with treatment effect. - Extranodal extension is present. - Biopsy clips and changes consistent with prior biopsy sites. 2. Left breast, mastectomy (B) - Fibrous tumor bed with residual invasive ductal carcinoma, histologic grade 1. - Ductal carcinoma in situ, intermediate nuclear grade, solid type. - Biopsy clip and changes consistent with prior biopsy site. - Please see synoptic report. SYNOPTIC REPORT OF [place] PATHOLOGIC FINDINGS LEFT BREAST: BREAST INVASIVE CARCINOMA WORKSHEET Part: A and B Procedure: Total mastectomy (including nipple-sparing and skin-sparing mastectomy) Specimen Laterality: Left Tumor size: Size of largest invasive carcinoma: Greatest dimension of largest focus of invasion >1 mm: 9 mm Tumor Focality: Single focus of invasive carcinoma Histologic Type of Invasive Carcinoma: Invasive carcinoma of no special type (ductal, not otherwise specified) Histologic Grade: Glandular (Acinar) / Tubular Differentiation: Score 2 Nuclear Pleomorphism: Score 2 Mitotic Rate: Score 1 (<=3 mitosis per mm2) Overall Grade: Grade I Ductal Carcinoma In Situ: DCIS is present in specimen DCIS Nuclear Grade: Grade II (intermediate) Tumor Extension: Skin: Not applicable Nipple: Not applicable Skeletal muscle: Not applicable Invasive Carcinoma Margins: Margins uninvolved by invasive carcinoma Distance from closest margin: 2 mm Closest margin: Inferior radial DCIS Margins: Margins uninvolved by DCIS Distance from closest margin: 5 mm Closest margin: Inferior radial Lymph Nodes: Involved by tumor cells Number of lymph nodes with macrometastases (>2 mm): 4 Number of lymph nodes with micrometastases (>0.2 mm to 2 mm and/or >200 cells): 0 Number of lymph nodes with isolated tumor cells (<= 0.2 mm and <= 200 cells): 0 Size of largest metastatic deposit: 8 mm Extranodal extension present: 1.5 mm Number of lymph nodes examined: 5 Treatment Effect: Treatment effect in the breast Treatment effect in the lymph nodes Probable or definite response to presurgical therapy in the invasive carcinoma Probable or definite response to presurgical therapy in metastatic carcinoma Lymph-Vascular Invasion: Present Pathologic Stage Classification (pTNM,AJCC 8th ed) TNM Descriptor(s): y (post- treatment) Primary Tumor (Invasive Carcinoma) (pT): pT1b Regional Lymph Nodes (pN): Modifier: Not applicable Category (pN): pN2a Distant metastasis: Distant Metastasis (pM) Not applicable/Not confirmed pathologically in this case Estrogen & progesterone receptors: Previously performed (HER2) ERBB2 Status: 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 3) Anastrozole on [facility] clinical trial. Stopped 08/2022. Metastatic disease. 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 Was seen by Dr. Bingham for the nodule appreciated on previous exam. Underwent punch biopsy on 07/19/2022. Pathology: Skin, left breast, punch biopsy: -Consistent with metastatic breast adenocarcinoma, see comment. Histologic sections demonstrate a largely unremarkable epidermis overlying a dermis filled with infiltrative cords and nests of pleomorphic epithelioid cells with ductal formation. To better characterize the specimen, ancillary immunohistochemical staining was performed on block A1 at the [facility] and compared to appropriate reactive controls. The epithelioid cells are positive for CK7 and GATA3. These histologic findings are consistent with metastatic breast adenocarcinoma from the patient's known malignancy. Underwent bronchoscopy on 08/14/2022 where lymph node sampling was performed of a 4L lymph node. Pathology: EBUS TRANSBRONCHIAL FINE NEEDLE ASPIRATE, LYMPH NODE - 4L Positive for malignant cells. Metastatic adenocarcinoma consistent with breast primary (see comment). Previous therapy for metastatic disease: 1) Verzenio. Began began 08/24/2022. Stopped due to fatigue and diarrhea. 2) Faslodex. Began 08/23/2022. 3) Ribociclib. Began 11/19. Current therapy: 1) Exemestane (05/13/2023) and everolimus second week April 2023. Was at [facility]. Had PET scan on 05/02. Demonstrated stable appearance of FDG uptake in the soft tissue thickenings along posterior left breast prosthesis and also small skin nodule left anterior breast as compared with outside PET/CT on 01/28. Small right axillary node with FDG avid uptake was noted to be stable. This was thought to be reactive rather metastatic disease. No other FDG avid lesions were observed including mediastinal and/or hilar adenopathy. Presents for ongoing oncologic management. Interim history: Underwent wide local excision of the 2 areas of left chest wall recurrence and explant of contracted left breast implant on 05/18/2024. Both specimens consistent with invasive ductal carcinoma, grade 3. PMH, medications and allergies personally reviewed by me today. Any changes documented in appropriate section. ROS: Constitutional: Denies episodes of fever and night sweats. Neuro: Denies YOUSIF, vertigo, dizziness and imbalance. HEENT: No recent change in voice, vision or hearing. Resp: See HPI. CVS: See HPI.. GI: Denies dysgeusia. Denies symptoms of stomatitis. Denies dysphagia and odynophagia. Denies reflux. : Denies dysuria or gross hematuria. No symptoms of bladder outlet obstruction. Endo: Denies polyuria and polydipsia. Denies heat and cold intolerance. Derm: Denies rash. Denies jaundice and diffuse pruritis. Heme: Denies unusual bleeding and unexplained bruising. Psych: Normal mood. Participation of a fellow, resident, medical student, or advanced practice provider student in performing the sensitive examination was discussed with the patient or authorized traffic representative. The patient or authorized traffic representative has agreed to proceed with the sensitive examination. Svetlana Kong LPN chaperoned. PHYSICAL EXAM: Vitals: Blood pressure 121/86, pulse 75, temperature 36.2 C (97.2 F), resp. rate 12, weight 75.8 kg (167 lb), SpO2 99%. -appearing and in no acute distress. EYES: Sclerae are anicteric bilaterally. LYMPHATIC: There is no palpable cervical or supraclavicular adenopathy. No axillary adenopathy bilaterally. CARDIOVASCULAR: Rhythm is regular. BREAST: Left sided implant removed. Incision appears to be healing well. Small amount fluid. ABDOMEN: The abdomen is nondistended. Extremities: Mild swelling left arm compared to the right. SKIN: No jaundice or rash. 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 -KPS is 100%. -PET scan indicated disease left chest wall and mediastinal lymph nodes. -MRI brain negative. -Biopsy-proven disease recurrence left chest wall inferior and posterior to implant. -ER positive (99% strong staining intensity), SC positive (2% with strong staining intensity), HER2 2+; nonamplified by FISH testing. 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 -MRI Breast 03/28/2023 demonstrated PD and therapy was rotated to Faslodex and Afinitor. Oncology at [facility] recommended exemestane with Afinitor. -Symptomatically tolerating well. -Reviewed PET results and images. Right axillary node appears same size as it was on PET 12/30/2023. FDG avidity may be from injection side. Plan: -Continue exemestane and everolimus. -Follow up with endocrinology for management of diabetes. -Continue every 6 month bisphosphonate therapy. -PET in about 3-4 months. (I42.7, T45.1X5A) Chemotherapy-induced cardiomyopathy (HCC) Assessment: -Earlier in her clinical course, patient had otherwise unexplained persistent tachycardia. Echo showed normal EF but I had reviewed with cardiology--there was a 10 percent change in the strain pattern suggestive of early cardiomyopathy. -I again discussed with her the importance of blood pressure control. Encouraged her to get a home blood pressure cuff and monitor blood pressures to share with her manager of planning and PCP. Plan: -Continue follow up with cardiology. (I89.0) Lymphedema of left arm Assessment: -Self resolved. Plan: -Monitor. (G47.01) Insomnia due to medical condition Assessment: -Lorazepam helps her fall asleep easily but then she typically wakes up a couple hours later, wide-awake and cannot go back to sleep. Trazodone used to work well for her. -Checked for interactions, none. Plan: -Discontinue lorazepam and start trazodone 50 mg at at bedtime. Rx sent. Portions of this documentation were copied and pasted from my previous office visit note dated 04/10/2024 in order to provide a cohesive continuity of the history. The note has been reviewed and edited and updated as necessary. Serena Carrasco DO documented in this encounter [facility] 07-08-2024 History of Present illness Narrative Radiology Service Progress Note PATIENT NAME: Pat Sorto DATE OF SERVICE: July 08, 2024 TIME: 4:22 PM PATIENT IDENTITY VERIFICATION COMPLETED USING TWO (2) IDENTIFIERS: Name and Date of confirmed by patient verbally. FALL SCREENING: Has the patient had 2 falls in the last year or 1 fall with injury or currently using an Ambulatory Assistive Device (Walker, Cane, Wheelchair, Crutches, etc.)? No PATIENT GENDER DATA: Assigned female at . status: : No status: NO. PATIENT RELEVANT IMPLANT DATA REVIEWED: Not Applicable PATIENT PRESENTS WITH AN IMPLANTABLE OR ATTACHED BILLING AND INSURANCE COORDINATOR: No RADIOLOGY DEPARTMENT: Ultrasound PERIPHERAL IV DATA: Not applicable SIGNED BY: Carla Bose RDMS RVT July 08, 2024 4:22 PM documented in this encounter [facility] 07-08-2024 Note [facility] 07-07-2024 Telephone encounter Note Thank you. Filed. Serena Carrasco DO [facility] 07-07-2024 Miscellaneous Notes Thank you. Filed. Serena Carrasco DO Please sign order Kasie Lamb LPN documented in this encounter [facility] 07-07-2024 Telephone encounter Note Please sign order Kasie Lamb LPN [facility] 07-06-2024 Instructions Brooke Batista RN - 07/06/2024 2:02 PM EDT -activity restrictions discussed, okay to resume activity/exercise slowly, easily progress -okay for water submersion (pools/ baths/ hot tub) when there are no open areas or scabs along incision and you are fully healed -okay for silicone sheets/scar massage if indicated -okay for skin/scar moisturizer, rec Aquaphor/Eucerin/Cerave -okay to sleep on your sides -Okay for tylenol alternating with ibuprofen for pain control (do not exceed 4 g tylenol in a 24 hour period, okay for ibuprofen 600-800 mg every 8 hours as needed for pain) Encouraged patient to [facility] for all non-urgent questions or concerns. If experiencing wound complications or have any questions or concerns during business hours call [phone] or after hours (after 5 pm or on the weekend) call [phone] and ask for the plastic surgery resident / fellow sale professional digital marketing for further instructions. If you have increasing swelling or bruising, particularly one side greater than the other. If swelling and redness persists after a few days. If you have increased redness along the incision. If you have severe or increased pain not relieved by medication. If you have an oral temperature of 100.4 degrees or higher. If you have any yellow or greenish drainage from the incisions or notice a foul smell. If you have bleeding from the incisions that is difficult to control with light pressure If you have new chest pain, shortness of breathe or difficulty breathing documented in this encounter [facility] 07-06-2024 History of Present illness Narrative Plastic Surgery Post Op Note CC: post op HPI: Pat Sorto is a 64 year old female who presents s/p Date of Surgery: 05/18/2024 Surgery: Left Breast Total Capsulectomy and Implant Removal Time Postop: 7 weeks Pt presents for routine post-op visit. Pain: control is good with medications (Tylenol) Drainage from incisions: denies Fever/chills: denies Activity: able to participate in ADLs within recommended restrictions Appetite: low appetite 06/04 35 cc seroma aspirated from left breast 06/25 60 cc seroma aspirated from left breast No concerns, left breast feels a little tight, is not sure if she has a fluid collection again. Reports the incision is slightly red, is not currently oozing but feels like it is about to, has scab formation along it. Using aquaphor Hx Radiation Therapy: Yes- completed 12/2017 Hx Chemotherapy: Yes- completed in 2018 Hx of DM, on insulin Wiund culture from 06/25/24 WOUND CULTURE No growth Smear Result No organisms seen No Polymorphonuclear Leukocytes Surgical pathology FINAL DIAGNOSIS 1. Left chest, skin, excision (A) - Invasive ductal carcinoma, Negro grade 3, involving subcutis, dermis and epidermis (including ulceration), (see comment). 2. Left breast implant, excision and removal (B) - Amorphous acellular material. -Breast implant (gross evaluation only). 3. Left breast, inframammary fold, excision (C) - Invasive ductal carcinoma, Negro grade 3, spanning greater than 50 mm, involving capsule, subcutis, dermis and epidermis (including ulceration), (see comment). 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 Husam Hart in [place] PAST SURGICAL HISTORY Procedure Laterality Date ARTHRP ACETBLR/PROX FEM PROSTC AGRFT/ALGRFT Right 03/20/2019 Hip replacement, total ARTHRP KNE CONDYLE&PLATU MEDIAL&LAT COMPARTMENTS Left 02/2016 BIOPSY BREAST OPEN INCISIONAL Left 2007 [facility] benign pathology per patient BREAST RECONSTRUCTION Left 2019 fat graft/implant exchange DELIVERY ONLY 1996,1993 , low transverse MASTECTOMY HX Left 2018 AND with immediate reconstruction MASTECTOMY, SIMPLE, COMPLETE Left 05/18/2024 removal of implant, WLE of chest wall PAST SURGICAL HISTORY OF 2022 bronchoscopy Current Outpatient Medications on File Prior to Visit Medication Sig metoprolol succinate ER (TOPROL XL) 25 mg 24 hr tablet take 1 tablet by mouth once daily spironolactone (ALDACTONE) 25 mg tablet Take 1 tablet by mouth once daily. exemestane (AROMASIN) 25 mg tablet Take 1 tablet by mouth once daily. losartan (COZAAR) 100 mg tablet Take 1 tablet by mouth every afternoon. insulin glargine (LANTUS SOLOSTAR U-100 INSULIN) 100 unit/mL (3 mL) Inject 20 Units subcutaneously every morning. LORazepam (ATIVAN) 0.5 mg Take 1 tablet by mouth three times a day as needed for up to 90 days. DROPLET PEN NEEDLE 31 gauge x 3/16 1 Each two times a day. ursodiol (LEENA) 250 mg tablet Take 250 mg by mouth two times a day. everolimus, antineoplastic, (AFINITOR) 10 mg tablet TAKE 1 TABLET ONCE DAILY Sodium Fluoride, Dental Rinse, 0.2 % SWISH 10 ML BY MOUTH THEN SPIT ONCE WEEKLY diphenhydrAMINE-Acetaminophen (TYLENOL PM EXTRA STRENGTH) 25-500 mg tab Take 1 tablet by mouth at bedtime as needed. ONETOUCH ULTRA PLUS TEST strp 1 Each two times a day. E11.65; No insulin Lancets Use with blood glucose test two times a day. Insulin Dep? No blood sugar diagnostic (BLOOD GLUCOSE TEST) test strip Use with blood glucose test two times a day. Insulin Dep? No aspirin, enteric coated (ASPIRIN, ENTERIC COATED) 81 mg EC tablet Take 81 mg by mouth once daily. pantoprazole DR (PROTONIX) 40 mg tablet Take 40 mg by mouth daily before breakfast. ascorbic acid, vitamin C, (VITAMIN C) 500 mg tablet Take 500 mg by mouth once daily. alpha tocopheryl acetate (VITAMIN E) 400 unit capsule Take 400 Units by mouth once daily. cyanocobalamin (VITAMIN B-12) 1,000 mcg tab Take 500 mcg by mouth once daily. VITAMIN D 50,000 unit capsule 1 capsule one time a week. CALCIUM CARBONATE (CALCIUM 500 ORAL) Take 1 tablet by mouth once daily. No current facility-administered medications on file prior to visit. There were no vitals taken for this visit. PE Alert and oriented in NAD on room air Left breast flat closure- fluid collection palpated centrally Slightly reddened skin irritation surrounding medial breast incision- scab formation Drainage seroma/hematoma Procedure Note- Location: right and left breast Safety check performed The patient agreed on the procedure to be done Left breast prepped with chloraprep and sterilely draped Under ultrasound guidance A 21 gauge butterfly needle was inserted into the left breast, fluid collection yielding 40 cc ss fluid A dry sterile dressing was applied The patient tolerated the procedure well. Did not appear to have loculated fluid collections on ultrasound- has one pocket that was visualized ASSESSMENT/PLAN: post operative state Aspiration of seroma today as above 5 day course of doxycycline should redness around incision not improve- she will keep us updated on condition in the interim Continue compression bra to left breast -activity restrictions discussed, okay to resume activity/exercise slowly, easily progress -okay for water submersion (pools/ baths/ hot tub) when there are no open areas or scabs along incision and you are fully healed -okay for silicone sheets/scar massage if indicated -okay for skin/scar moisturizer, rec Aquaphor/Eucerin/Cerave -okay to sleep on your sides -Okay for tylenol alternating with ibuprofen for pain control (do not exceed 4 g tylenol in a 24 hour period, okay for ibuprofen 600-800 mg every 8 hours as needed for pain) Encouraged patient to communicate through MyChart for all non-urgent questions or concerns. If experiencing wound complications or have any questions or concerns during business hours call [phone] or after hours (after 5 pm or on the weekend) call [phone] and ask for the plastic surgery resident / fellow sale professional digital marketing for further instructions. If you have increasing swelling or bruising, particularly one side greater than the other. If swelling and redness persists after a few days. If you have increased redness along the incision. If you have severe or increased pain not relieved by medication. If you have an oral temperature of 100.4 degrees or higher. If you have any yellow or greenish drainage from the incisions or notice a foul smell. If you have bleeding from the incisions that is difficult to control with light pressure If you have new chest pain, shortness of breathe or difficulty breathing Return to clinic as scheduled for seroma evaluation and possible aspiration, with Dr Marcelino in 2 months The patient is seen and examined by Micki Butler CNP and the following reflects her service. Scribed by Brooke Batista RN I spent 20 minutes in the visit, with more than 50% of the total [id number] time of the visit in counseling / coordination of care. I agree with the Chief Complaint, ROS, and Past Histories independently gathered by the clinical help desk support and the remaining scribed note accurately describes my personal service to the patient. Micki Butler APRN.SONIDO July 06, 2024 documented in this encounter [facility] 07-06-2024 Note [facility] 07-06-2024 Telephone encounter Note I called and spoke to Pat and scheduled her for the below ordered ultrasound for this Saturday07/08/24 @ 11:30 am, she confirmed this date and time Edilia Herrera Pss [facility] 07-06-2024 Miscellaneous Notes I called and spoke to Pat and scheduled her for the below ordered ultrasound for this Saturday07/08/24 @ 11:30 am, she confirmed this date and time Edilia Herrera Pss US thyroid when able. Serena Carrasco DO documented in this encounter [facility] 07-03-2024 Telephone encounter Note US thyroid when able. Serena Carrasco DO [facility] 06-30-2024 History of Present illness Narrative RADIOLOGY SERVICE PROGRESS NOTE SERVICE DATE: 06/30/2024 SERVICE TIME: 10:25 AM PATIENT IDENTITY VERIFICATION COMPLETED USING TWO (2) STANDARD IDENTIFIERS: Name and Date of confirmed by patient verbally FALL SCREENING: Has the patient had 2 falls in the last year or 1 fall with injury or currently using an Ambulatory Assistive Device (Walker, Cane, Wheelchair, Crutches, etc.)? No PATIENT GENDER DATA: .female ALLERGIES: NA MEDICATIONS REVIEWED: Not applicable PATIENT RELEVANT IMPLANT DATA REVIEWED: Not Applicable PATIENT PRESENTS WITH AN IMPLANTABLE OR ATTACHED BILLING AND INSURANCE COORDINATOR: No CREATININE: Creatinine Date Value Ref Range Status 06/03/2024 1.15 (H) 0.58 - 0.96 mg/dL Final 04/10/2024 0.91 0.58 - 0.96 mg/dL Final 01/06/2024 0.81 0.58 - 0.96 mg/dL Final Estimated Glomerular Filtration Rate Date Value Ref Range Status 06/03/2024 53 (L) >=60 mL/min/1.73m Final Comment: Estimated Glomerular Filtration Rate (eGFR) is calculated using the 2020 CKD-EPI creatinine equation. This equation utilizes serum creatinine, sex, and age as parameters. The creatinine assay has traceable calibration to isotope dilution-mass spectrometry. Refer to KDIGO guidelines for clinical interpretation. In patients with unstable renal function, e.g. those with acute kidney injury, the eGFR may not accurately reflect actual GFR. eGFR- Date Value Ref Range Status 02/15/2021 >60 Final P.O.C.T. RESULTS: N/A June 30, [address] PERFORMED: No IV SITE: Ambulatory: NM only - direct IV injection in the Right antecubital site POST EXAM PIV STATUS: Discontinued PROCEDURE TYPE: NM INJECT: PET/CT BODY SCAN. 11.0 mCi F18 FDG. No other medications given.. ADMINISTRATION TIME: 1002 PATIENT DISCHARGED TO: Ambulatory patient, left [place] department area. Is this a therapy: No A Diagnostic radioactive procedure has taken place, with no further precautions necessary other than routine body substance precautions. More information regarding radiation safety can be found using this link: [email or web address] %[email or web address] SIGNATURE: PATRICIA Ying) PATIENT NAME: Pat Sorto DATE: June 30, 2024 TIME: 10:25 AM PAGER/CONTACT #: documented in this encounter [facility] 06-30-2024 Note HNO ID: [id number] Author: MYLA DO RT(R) Service: Nuclear Medicine Author Type: Technologist Type: Progress Notes Filed: 06/30/2024 10:26 Note Text: RADIOLOGY SERVICE PROGRESS NOTE SERVICE DATE: 06/30/2024 SERVICE TIME: 10:25 AM PATIENT IDENTITY VERIFICATION COMPLETED USING TWO (2) STANDARD IDENTIFIERS: Name and Date of confirmed by patient verbally FALL SCREENING: Has the patient had 2 falls in the last year or 1 fall with injury or currently using an Ambulatory Assistive Device (Walker, Cane, Wheelchair, Crutches, etc.)? No PATIENT GENDER DATA: .female ALLERGIES: NA MEDICATIONS REVIEWED: Not applicable PATIENT RELEVANT IMPLANT DATA REVIEWED: Not Applicable PATIENT PRESENTS WITH AN IMPLANTABLE OR ATTACHED BILLING AND INSURANCE COORDINATOR: No CREATININE: Creatinine Date Value Ref Range Status 06/03/2024 1.15 (H) 0.58 - 0.96 mg/dL Final 04/10/2024 0.91 0.58 - 0.96 mg/dL Final 01/06/2024 0.81 0.58 - 0.96 mg/dL Final Estimated Glomerular Filtration Rate Date Value Ref Range Status 06/03/2024 53 (L) >=60 mL/min/1.73m? Final Comment: Estimated Glomerular Filtration Rate (eGFR) is calculated using the 2020 CKD-EPI creatinine equation. This equation utilizes serum creatinine, sex, and age as parameters. The creatinine assay has traceable calibration to isotope dilution-mass spectrometry. Refer to KDIGO guidelines for clinical interpretation. In patients with unstable renal function, e.g. those with acute kidney injury, the eGFR may not accurately reflect actual GFR. eGFR- Date Value Ref Range Status 02/15/2021 >60 Final P.O.C.T. RESULTS: N/A June 30, [address] PERFORMED: No IV SITE: Ambulatory: NM only - direct IV injection in the Right antecubital site POST EXAM PIV STATUS: Discontinued PROCEDURE TYPE: NM INJECT: PET/CT BODY SCAN. 11.0 mCi F18 FDG. No other medications given.. ADMINISTRATION TIME: 1002 PATIENT DISCHARGED TO: Ambulatory patient, left [place] department area. Is this a therapy: No A Diagnostic radioactive procedure has taken place, with no further precautions necessary other than routine body substance precautions. More information regarding radiation safety can be found using this link: [email or web address] 20Diagnostic%20Nuclear%20Medicine% 20Procedures.[email or web address] SIGNATURE: RT Deonna(R) PATIENT NAME: Pat Sorto DATE: June 30, 2024 TIME: 10:25 AM PAGER/CONTACT #: [facility] 06-26-2024 Telephone encounter Note ok [facility] 06-26-2024 Miscellaneous Notes ok pharmacy says insurance will cover 90 day supply. Change? Last saw PLUMBING MANAGER 06/05/24. Next appt with pcp in Mar 2025. documented in this encounter [facility] 06-26-2024 Telephone encounter Note pharmacy says insurance will cover 90 day supply. Change? Last saw PLUMBING MANAGER 06/05/24. Next appt with pcp in Mar 2025. [facility] 06-24-2024 Note [facility] 06-24-2024 History of Present illness Narrative Plastic Surgery Post Op Note CC: post op HPI: Pat Sorto is a 64 year old female who presents s/p Date of Surgery: 05/18/2024 Surgery: Left Breast Total Capsulectomy and Implant Removal Time Postop: 5.5 weeks Pt presents for routine post-op visit. Pain: control is good with medications (Tylenol) Drainage from incisions: denies Fever/chills: denies Activity: able to participate in ADLs within recommended restrictions Appetite: low appetite Last office visit 06/04/24 35 cc seroma drained No concerns, left breast feels a little tight, is not sure if she has a fluid collection again No symptoms or signs of infection (no N/V/F/C, no wound drainage and no new redness) Hx Radiation Therapy: Yes- completed 12/2017 Hx Chemotherapy: Yes- completed in 2018 Surgical pathology FINAL DIAGNOSIS 1. 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 2. Left breast implant, excision and removal (B) - Amorphous acellular material. -Breast implant (gross evaluation only). 3. Left breast, inframammary fold, excision (C) - Invasive ductal carcinoma, Negro grade 3, spanning greater than 50 mm, involving capsule, subcutis, dermis and epidermis (including ulceration), (see comment). 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 Husam Hart in [place] PAST SURGICAL HISTORY Procedure Laterality Date ARTHRP ACETBLR/PROX FEM PROSTC AGRFT/ALGRFT Right 03/20/2019 Hip replacement, total ARTHRP KNE CONDYLE&PLATU MEDIAL&LAT COMPARTMENTS Left 02/2016 BIOPSY BREAST OPEN INCISIONAL Left 2007 [facility] benign pathology per patient BREAST RECONSTRUCTION Left 2018 fat graft/implant exchange DELIVERY ONLY 1996,1993 , low transverse MASTECTOMY HX Left 2017 AND with immediate reconstruction MASTECTOMY, SIMPLE, COMPLETE Left 05/18/2024 removal of implant, WLE of chest wall PAST SURGICAL HISTORY OF 2022 bronchoscopy Current Outpatient Medications on File Prior to Visit Medication Sig metoprolol succinate ER (TOPROL XL) 25 mg 24 hr tablet Take 1 tablet by mouth once daily. spironolactone (ALDACTONE) 25 mg tablet Take 1 tablet by mouth once daily. exemestane (AROMASIN) 25 mg tablet Take 1 tablet by mouth once daily. losartan (COZAAR) 100 mg tablet Take 1 tablet by mouth every afternoon. insulin glargine (LANTUS SOLOSTAR U-100 INSULIN) 100 unit/mL (3 mL) Inject 20 Units subcutaneously every morning. LORazepam (ATIVAN) 0.5 mg Take 1 tablet by mouth three times a day as needed for up to 90 days. DROPLET PEN NEEDLE 31 gauge x 3/16 1 Each two times a day. ursodiol (LEENA) 250 mg tablet Take 250 mg by mouth two times a day. everolimus, antineoplastic, (AFINITOR) 10 mg tablet TAKE 1 TABLET ONCE DAILY Sodium Fluoride, Dental Rinse, 0.2 % SWISH 10 ML BY MOUTH THEN SPIT ONCE WEEKLY diphenhydrAMINE-Acetaminophen (TYLENOL PM EXTRA STRENGTH) 25-500 mg tab Take 1 tablet by mouth at bedtime as needed. AquacueTOUCH ULTRA PLUS TEST strp 1 Each two times a day. E11.65; No insulin Lancets Use with blood glucose test two times a day. Insulin Dep? No blood sugar diagnostic (BLOOD GLUCOSE TEST) test strip Use with blood glucose test two times a day. Insulin Dep? No aspirin, enteric coated (ASPIRIN, ENTERIC COATED) 81 mg EC tablet Take 81 mg by mouth once daily. pantoprazole DR (PROTONIX) 40 mg tablet Take 40 mg by mouth daily before breakfast. ascorbic acid, vitamin C, (VITAMIN C) 500 mg tablet Take 500 mg by mouth once daily. alpha tocopheryl acetate (VITAMIN E) 400 unit capsule Take 400 Units by mouth once daily. cyanocobalamin (VITAMIN B-12) 1,000 mcg tab Take 500 mcg by mouth once daily. VITAMIN D 50,000 unit capsule 1 capsule one time a week. CALCIUM CARBONATE (CALCIUM 500 ORAL) Take 1 tablet by mouth once daily. No current facility-administered medications on file prior to visit. There were no vitals taken for this visit. PE Alert and oriented in NAD on room air Left breast flat closure- fluid collection No s/s of infection ASSESSMENT/PLAN: Expected post operative course Doing well -activity restrictions discussed, okay to resume activity/exercise slowly, easily progress -okay to stop surgical bra, can use sports bra/soft bra, no underwire. Can stop wearing at night -okay for water submersion (pools/ baths/ hot tub) when there are no open areas or scabs along incision and you are fully healed -okay for silicone sheets/scar massage if indicated -okay for skin/scar moisturizer, rec Aquaphor/Eucerin/Cerave -okay to sleep on your sides -Okay for tylenol alternating with ibuprofen for pain control (do not exceed 4 g tylenol in a 24 hour period, okay for ibuprofen 600-800 mg every 8 hours as needed for pain) Encouraged patient to communicate through [facility] for all non-urgent questions or concerns. If experiencing wound complications or have any questions or concerns during business hours call [phone] or after hours (after 5 pm or on the weekend) call [phone] and ask for the plastic surgery resident / fellow sale professional digital marketing for further instructions. If you have increasing swelling or bruising, particularly one side greater than the other. If swelling and redness persists after a few days. If you have increased redness along the incision. If you have severe or increased pain not relieved by medication. If you have an oral temperature of 100.4 degrees or higher. If you have any yellow or greenish drainage from the incisions or notice a foul smell. If you have bleeding from the incisions that is difficult to control with light pressure If you have new chest pain, shortness of breathe or difficulty breathing Return to clinic weekly with Micki Butler for seroma evaluation and possible aspiration, with Dr Marcelino in 2 months The patient is seen and examined by Micki Marcelino M.D. and the following reflects her service. Scribed by Brooke Batista RN I spent 20 minutes in the visit, with more than 50% of the total [id number] time of the visit in counseling / coordination of care. I agree with the Chief Complaint, ROS, and Past Histories independently gathered by the clinical help desk support and the remaining scribed note accurately describes my personal service to the patient. I aspirated 60 cc serous simple fluid from the left breast pocket. Will have her follow with Micki Butler for seroma aspirations. I discussed that once the seroma has resolved for at least 2 weeks than she can start PT and massage. Micki Marcelino MD documented in this encounter [facility] 06-23-2024 Progress note Formatting of t his note might be different from the original. Labs overall look good. Endorse increased hydration [facility] 06-23-2024 Miscellaneous Notes Labs overall look good. Endorse increased hydration documented in this encounter [facility] 06-19-2024 Progress note Formatting of t his note might be different from the original. ZIO shows primarily sinus rhythm with rare ectopics. [facility] 06-19-2024 Miscellaneous Notes ZIO shows primarily sinus rhythm with rare ectopics. Preliminary result shows primarily sinus rhythm with rare ectopic beats. Awaiting final sign off / interpretation by cardiology documented in this encounter [facility] 06-16-2024 History of Present illness Narrative Primary Care Pharmacy Visit CC (Reason for Consult): (E11.9) Type 2 diabetes mellitus without complication, unspecified whether fpc insulin use (HCC) (primary encounter diagnosis) (Z79.899) Medication management Goal(s): A1c <8% per consult Last Collaborating Provider Visit: 06/05/24 with GIOVANNA Adamson - metoprolol succinate started Pat Angelita Sorto is a 64 year old female presenting for follow up visit telephone call. Patient consents to pharmacy collaborative practice agreement. Last Pharmacy Visit: 05/05/24 - Lantus increased to 20 units daily Interim Events: - 05/26/24 INTM visit - spironolactone started HPI: Reports doing well Feeling better since recent BP med changes. Is currently wearing a heart monitor, not having as many palpitations as was previously. Will be wearing the heart monitor until 06/23. Would like to make sure none of the new medications interact with her cancer medications Was off affinitor for 4 weeks because of her surgery, BGs were a lot better when off. Has now been back on affinitor for last 5 days and BGs still doing well Current DM Medications: Lantus 20 units once daily Previously Trialed DM Meds: Ozempic - diarrhea/vomiting Metformin - unable to tolerate Glipizide - stopped when insulin started by endo Diet Denies any recent changes GLYCEMIC CONTROL: Glucometer present at visit: Yes Hypoglycemia: No SMBGS (Fingersticks) Date Fasting AM Before Lunch 2 hr PP Bedtime 06/16 117 3/10 94 136 3/9 111 3/8 103 3/7 94 3/6 103 3/5 101 3/4 136 73 105 /3 83 3/ 105 06/06 173 244 152 06/05 141 AVG 113 131 Past medical history reviewed. ALLERGIES Allergen Reactions Amoxicillin Rash rash arms trunk neck face, itching Chills Tolerates Ancef Current Outpatient Medications Medication Sig Dispense Refill metoprolol succinate ER (TOPROL XL) 25 mg 24 hr tablet Take 1 tablet by mouth once daily. 30 tablet 11 spironolactone (ALDACTONE) 25 mg tablet Take 1 tablet by mouth once daily. 90 tablet 3 exemestane (AROMASIN) 25 mg tablet Take 1 tablet by mouth once daily. 90 tablet 3 losartan (COZAAR) 100 mg tablet Take 1 tablet by mouth every afternoon. 90 tablet 3 insulin glargine (LANTUS SOLOSTAR U-100 INSULIN) 100 unit/mL (3 mL) Inject 20 Units subcutaneously every morning. LORazepam (ATIVAN) 0.5 mg Take 1 tablet by mouth three times a day as needed for up to 90 days. 90 tablet 2 DROPLET PEN NEEDLE 31 gauge x 3/16 1 Each two times a day. ursodiol (LEENA) 250 mg tablet Take 250 mg by mouth two times a day. everolimus, antineoplastic, (AFINITOR) 10 mg tablet TAKE 1 TABLET ONCE DAILY 90 tablet 3 Sodium Fluoride, Dental Rinse, 0.2 % SWISH 10 ML BY MOUTH THEN SPIT ONCE WEEKLY diphenhydrAMINE-Acetaminophen (TYLENOL PM EXTRA STRENGTH) 25-500 mg tab Take 1 tablet by mouth at bedtime as needed. ONETOUCH ULTRA PLUS TEST strp 1 Each two times a day. E11.65; No insulin 200 Each 3 Lancets Use with blood glucose test two times a day. Insulin Dep? No 200 Each 3 blood sugar diagnostic (BLOOD GLUCOSE TEST) test strip Use with blood glucose test two times a day. Insulin Dep? No 200 Each 3 aspirin, enteric coated (ASPIRIN, ENTERIC COATED) 81 mg EC tablet Take 81 mg by mouth once daily. pantoprazole DR (PROTONIX) 40 mg tablet Take 40 mg by mouth daily before breakfast. ascorbic acid, vitamin C, (VITAMIN C) 500 mg tablet Take 500 mg by mouth once daily. alpha tocopheryl acetate (VITAMIN E) 400 unit capsule Take 400 Units by mouth once daily. cyanocobalamin (VITAMIN B-12) 1,000 mcg tab Take 500 mcg by mouth once daily. VITAMIN D 50,000 unit capsule 1 capsule one time a week. CALCIUM CARBONATE (CALCIUM 500 ORAL) Take 1 tablet by mouth once daily. No current facility-administered medications for this visit. Pill bottles are not present. Adherence: denies missed doses. Rx coverage: Payor: MEDICARE / Plan: MEDICARE A AND B / Product Type: Medicare / Medications affordable? Yes PHARMACOTHERAPY PREVENTATIVE MEDS: On LATISHA/ARB: Yes On Statin: No On ASA: Yes EXAM: There were no vitals taken for this visit. Last 3 Encounter BP Readings: Date: BP: 06/05/2024 162/103[bp average[ 06/04/2024 176/117 05/26/2024 155/96[bp average[ Wt: 80 kg (176 lb 5.9 oz) BMI: 28.90 kg/(m^2) LABS: Lab Results Component Value Date HBA1C 7.2 03/18/2024 HBA1C 9.1 07/16/2023 HBA1C 6.1 03/11/2023 HBA1C 5.9 02/19/2022 HBA1C 5.6 10/07/2018 HBA1C 5.7 05/20/2018 Glucose 103 06/03/2024 BUN 27 06/03/2024 Creatinine, Whole Blood (iSTAT) 1.15 06/03/2024 Sodium 142 06/03/2024 Potassium 4.0 06/03/2024 Chloride 104 06/03/2024 CO2 27 06/03/2024 Protein, Total 7.1 04/10/2024 Albumin 3.9 04/10/2024 Calcium 10.1 06/03/2024 Alkaline Phosphatase 65 04/10/2024 Bilirubin, Total 0.3 04/10/2024 AST 18 04/10/2024 ALT 12 04/10/2024 Lab Results Component Value Date CHOL 202 11/11/2023 CHOL 167 10/07/2018 LDL 125 11/11/2023 LDL 103 10/07/2018 HDL 27 11/11/2023 HDL 34 10/07/2018 TG 250 11/11/2023 TG 151 10/07/2018 No results found for: UALBCR eGFR-All Other Races (.) Date Value 02/15/2021 59 Estimated Glomerular Filtration Rate (mL/min/1.73m ) Date Value 06/03/2024 53 ASSESSMENT/PLAN: 1. Type 2 diabetes mellitus without complication, unspecified 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 insulin use (HCC) - ICD9: 250.00, ICD10: E11.9 (primary diagnosis) - Controlled - Continue current medications - Blood glucose monitoring on a twice daily schedule - Counseled on healthy diet and regular exercise - Discussed diabetic education issues of hypoglycemic/hyperglycemic symptoms - Follow up in 1 month, sooner should any other issues arise. 2. Medication management - ICD9: V58.69, ICD10: Z79.899 Reviewed all medications, indications, dosing, frequency, administration, and potential ADRs with pt. Medication list updated as described above. - Reviewed medication adjustments and reviewed for any potential DD interactions; no interactions found. Overdue Diabetes Health Maintenance: Health Maintenance - Diabetes Topic Date Due Urine Albumin:Creatinine Ratio Never done Diabetic Foot Exam Never done Follow Up: Next PCP visit: 03/23/25 Next endo visit: 10/14/24 Next PharmD visit: 07/14/24 Tatianna Crook, BipinD, BCACP Primary Care Clinical Putty Remover documented in this encounter [facility] 06-16-2024 Note [facility] 06-11-2024 Note [facility] 06-11-2024 History of Present illness Narrative Plastic Surgery Post Op Note This is a virtual visit using [employer] Zoom Video Visit. It required patient-provider interaction for the medical decision making as documented below. I have communicated my name and active licensure. The patient's identity and physical location were verified at the time of this visit. Either the patient or their legal traffic representative has been informed of the risks and benefits of -- and alternatives to -- treatment through a remote evaluation and consents to proceed with the evaluation remotely. CC: post op HPI: Pat Sorto is a 64 year old female who presents s/p Date of Surgery: 05/18/2024 Surgery: Left Breast Total Capsulectomy and Implant Removal Time Postop: 3.5 weeks Pt presents for routine post-op visit. Pain: control is good with medications (Tylenol) Drainage from incisions: denies Fever/chills: denies Activity: able to participate in ADLs within recommended restrictions Appetite: low appetite No concerns, left breast feels a little tight, maybe a red Hx Radiation Therapy: Yes- completed 12/2017 Hx Chemotherapy: Yes- completed in 2018 Surgical pathology FINAL DIAGNOSIS 1. 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 2. Left breast implant, excision and removal (B) - Amorphous acellular material. -Breast implant (gross evaluation only). 3. Left breast, inframammary fold, excision (C) - Invasive ductal carcinoma, [place] grade 3, spanning greater than 50 mm, involving capsule, subcutis, dermis and epidermis (including ulceration), (see comment). 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 Husam Hart in [place] PAST SURGICAL HISTORY Procedure Laterality Date ARTHRP ACETBLR/PROX FEM PROSTC AGRFT/ALGRFT Right 03/20/2019 Hip replacement, total ARTHRP KNE CONDYLE&PLATU MEDIAL&LAT COMPARTMENTS Left 02/2016 BIOPSY BREAST OPEN INCISIONAL Left 2007 [facility] benign pathology per patient BREAST RECONSTRUCTION Left 2019 fat graft/implant exchange DELIVERY ONLY 1996,1993 , low transverse MASTECTOMY HX Left 2017 AND with immediate reconstruction MASTECTOMY, SIMPLE, COMPLETE Left 05/18/2024 removal of implant, WLE of chest wall PAST SURGICAL HISTORY OF 2022 bronchoscopy Current Outpatient Medications on File Prior to Visit Medication Sig exemestane (AROMASIN) 25 mg tablet Take 1 tablet by mouth once daily. amLODIPine (NORVASC) 2.5 mg tablet Take 1 tablet by mouth once daily. losartan (COZAAR) 100 mg tablet Take 1 tablet by mouth every afternoon. benzonatate (TESSALON PERLE) 100 mg capsule Take 1-2 capsules by mouth three times a day as needed for cough. cetirizine (ZYRTEC) 10 mg tablet Take 1 tablet by mouth once daily. for nasal congestion and drainage insulin glargine (LANTUS SOLOSTAR U-100 INSULIN) 100 unit/mL (3 mL) Inject 20 Units subcutaneously every morning. LORazepam (ATIVAN) 0.5 mg Take 1 tablet by mouth three times a day as needed for up to 90 days. DROPLET PEN NEEDLE 31 gauge x 3/16 1 Each two times a day. ursodiol (LEENA) 250 mg tablet Take 250 mg by mouth two times a day. everolimus, antineoplastic, (AFINITOR) 10 mg tablet TAKE 1 TABLET ONCE DAILY Sodium Fluoride, Dental Rinse, 0.2 % SWISH 10 ML BY MOUTH THEN SPIT ONCE WEEKLY diphenhydrAMINE-Acetaminophen (TYLENOL PM EXTRA STRENGTH) 25-500 mg tab Take 1 tablet by mouth at bedtime as needed. ONETOUCH ULTRA PLUS TEST strp 1 Each two times a day. E11.65; No insulin Lancets Use with blood glucose test two times a day. Insulin Dep? No blood sugar diagnostic (BLOOD GLUCOSE TEST) test strip Use with blood glucose test two times a day. Insulin Dep? No aspirin, enteric coated (ASPIRIN, ENTERIC COATED) 81 mg EC tablet Take 81 mg by mouth once daily. pantoprazole DR (PROTONIX) 40 mg tablet Take 40 mg by mouth daily before breakfast. ascorbic acid, vitamin C, (VITAMIN C) 500 mg tablet Take 500 mg by mouth once daily. alpha tocopheryl acetate (VITAMIN E) 400 unit capsule Take 400 Units by mouth once daily. cyanocobalamin (VITAMIN B-12) 1,000 mcg tab Take 500 mcg by mouth once daily. VITAMIN D 50,000 unit capsule 1 capsule one time a week. CALCIUM CARBONATE (CALCIUM 500 ORAL) Take 1 tablet by mouth once daily. No current facility-administered medications on file prior to visit. There were no vitals taken for this visit. PE VIDEO EXAM: (if completed, performed via video enabled technology) Alert and oriented in NAD on room air Left breast flat closure- possible fluid collection No s/s of infection ASSESSMENT/PLAN: Expected post operative course Doing well -Shower regularly to keep the incisions clean and inspect for signs of infection (due to decreased sensation) -Walking is encouraged, this helps to reduce swelling and lowers the chance of blood clots. If you were prescribed anticoagulation post operatively, please complete course as instructed -Activity restrictions reviewed with patient. Okay to raise arm above head at 4 weeks if you drains have all been removed and you do not have any wound healing issues. No heavy lifting/pushing/pulling greater than 10 lbs for 6 weeks after surgery. Do not perform dining room manager such as laundry and vacuuming. Do not perform yard work. -Please wear tight closing compression bra 4-6 weeks following surgery -No water submersion/baths until all incisions are fully healed -Okay for driving if not taking any narcotic pain medication and you feel safe to maneuver a car - If you have steri strips over incisions, please leave these in place, they will peel back on their own. Should you have new drainage, spreading redness, odor, or pain in the area please let our office know and we will instruct you further -okay to sleep on your back and lie flat, do not sleep on the surgical side 3-4 weeks after recent procedure -Okay for tylenol alternating with ibuprofen for pain control (do not exceed 4 g tylenol in a 24 hour period, okay for ibuprofen 600-800 mg every 8 hours as needed for pain) Encouraged [facility] for all non-urgent questions or concerns. If experiencing wound complications or have any questions or concerns during business hours call [phone] or after hours (after 5 pm or on the weekend) call [phone] and ask for the plastic surgery resident / fellow sale professional digital marketing for further instructions. If you have increasing swelling or bruising, particularly one side greater than the other. If swelling and redness persists after a few days. If you have increased redness along the incision. If you have severe or increased pain not relieved by medication. If you have an oral temperature of 100.4 degrees or higher. If you have any yellow or greenish drainage from the incisions or notice a foul smell. If you have bleeding from the incisions that is difficult to control with light pressure If you have new chest pain, shortness of breathe or difficulty breathing Return to clinic as needed for possible seroma accumulation Follow up with Dr. Marcelino on 06/25/2024 Mino Beard APRN.CNP June 11, 2024 Elements copied from my note dated 06/04/2024 have been reviewed and updated where appropriate, and all reflect current assessment and medical decision making from today's encounter. documented in this encounter [facility] 06-09-2024 Progress note Formatting of t his note might be different from the original. Preliminary result shows primarily sinus rhythm with rare ectopic beats. Awaiting final sign off / interpretation by cardiology [facility] 06-05-2024 Instructions Cathy Burr APRN.CNS - 06/05/2024 9:02 AM EST Drink about 64 ounces of fluid daily. Add metoprolol succinate 25 mg daily. Check your blood pressure once daily. Call and let us know if your blood pressure is running greater than 150/80 documented in this encounter [facility] 06-05-2024 Note [facility] 06-05-2024 History of Present illness Narrative SUBJECTIVE: Pat Sorto is a 64 year old female. Urine Albumin:Creatinine Ratio Never done Diabetic Foot Exam Never done Depression Screening Never done Anxiety Screening Never done BP Controlled (<130/80) Never done DTaP,Tdap,Td Vaccine(1 - Tdap) Never done Hepatitis A Vaccine(1 of 2 - Risk 2-dose series) Never done Shingrix Vaccine(1 of 2) Never done Colorectal Cancer Screening Never done Hepatitis B Vaccine(1 of 3 - Risk 3-dose series) Never done RSV Vaccine(1 - Risk 60-74 years 1-dose series) Never done Cervical Cancer Screening due on 03/04/2019 Mammogram Screening due on 05/31/2023 Influenza Vaccine(1) due on 12/08/2023 Covid-19 Vaccine( season) due on 12/08/2023 Advance Directive Discussion Never done HPI Pat Sorto is a 64 year old female. 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) Axillary Pain, Left Musculoskeletal Chest Pain Examination of Participant in Clinical Trial Hypertension History of Radiation Therapy Total Knee Replacement Status, Left Primary Localized Osteoarthritis of Right Hip Status Post Right Hip Replacement Lumbar Degenerative Disc Disease Carcinoma of Left Breast Metastatic to Skin (Hcc) Class 1 Obesity Due to Excess Calories With Serious Comorbidity and Body Mass Index (Bmi) of 32.0 to 32.9 in Adult Metastasis to Mediastinal Lymph Node (Hcc) Functional Diarrhea Dehydration Lymphedema of Left Arm Gastroesophageal Reflux Disease Type 2 Diabetes Mellitus Without Complication, With Long-Term Current Use of Insulin (Hcc) Presents for recheck of hypertension and palpitations. HPI excerpted from her previous visit: Presents for ER follow up visit for hypertension. She was seen at [facility] ER 05/21/2024 for hypertensive urgency. She reported palpitations prior to arriving to the ER for 3 days previous. Blood pressure on arrival was 214/160. She was tachypneic, tachycardic showed sinus tachycardia. Pulse ox 97% on room air. Clinically appeared a bit dehydrated. EKG was completed rate [address] or T wave changes. She was treated with IV fluids in the ER. Labs are obtained including D-dimer, low risk Wells criteria with tachycardia and recent surgery. D-dimer was elevated so CTA chest and neck for PE completed and showed small bilateral pleural effusions. She was treated with home medications for blood pressure. She is status post 05/18/2024 Surgery: Left Breast Total Capsulectomy and Implant Removal with general anesthesia. Noted to be doing well at her one week follow up visit yesterday. Today reports noting palpitations daily, has been persistent since before surgery. Notes it most often when she is lying down. Lasts for seconds, can occur multiple times per day. Can feel short of breath with this otherwise no associated symptoms. No chest pain edema presyncope syncope. She does feel a bit puffy all over, especially in feet hands and belly. Weight is a bit increased. Today notes that she feels amlodipine was causing palpitations and would like to switch. She prefers a diuretic to a beta-anahy at this time. Has been consistently taking losartan. Home blood pressure readings over the last week have been 130/85 to 181/122. Heart rate 86-104 bpm. Notes will be heading out of town soon for her grandchild. Notes some concern with elevated blood pressure and heart rate, would like to get this under control. She notes home blood pressure readings have ranged from 137/85 -181/122, HR 86-103 bpm since last seen. She is noting less puffiness in her hands and feet. Weight is stable. She is not short of breath. She is now noting fewer palpitations, only occasionally currently. Notes she has been walking 2 miles and feels well generally with doing this. Last 14 Encounter BP Readings: Date: BP: 06/05/2024 162/103[bp average[ 06/04/2024 176/117 05/26/2024 155/96[bp average[ 05/18/2024 93/51 05/12/2024 142/92 05/07/2024 136/86 04/28/2024 126/80 04/24/2024 [deferred d/t lymphedema precautions[ 04/15/2024 146/92 04/13/2024 122/68 04/13/2024 142/92 04/10/2024 134/90 03/18/2024 138/88 01/06/2024 168/96 She reports receiving Zio in the mail and tried to start using this however it did not work and has had a new one mailed out. She is currently wearing an Latisha wrap and compression bra, to be done for 5 days then recheck with surgery in 1 week. This would be in the area of application for Zio. Review of Systems Constitutional: Negative. Cardiovascular: Positive for palpitations. Objective BP 162/103 Pulse 93 Resp 16 Wt 80 kg (176 lb 5.9 oz) BMI 28.90 kg/m Physical Exam Vitals and nursing note reviewed. Constitutional: Appearance: Normal appearance. HENT: Head: Normocephalic and atraumatic. Eyes: Conjunctiva/sclera: Conjunctivae normal. Neck: Thyroid: No thyromegaly. Vascular: Normal carotid pulses. No carotid bruit or JVD. Cardiovascular: Rate and Rhythm: Normal rate and regular rhythm. Pulses: Carotid pulses are 2+ on the right side and 2+ on the left side. Radial pulses are 2+ on the right side and 2+ on the left side. Heart sounds: Normal heart sounds. Pulmonary: Effort: Pulmonary effort is normal. Breath sounds: Normal breath sounds. Abdominal: General: Bowel sounds are normal. Palpations: Abdomen is soft. Musculoskeletal: Right lower leg: No edema. Left lower leg: No edema. Skin: General: Skin is warm and dry. Neurological: General: No focal deficit present. Mental Status: She is alert and oriented to person, place, and time. ALLERGIES Allergen Reactions Amoxicillin Rash rash arms trunk neck face, itching Chills Tolerates Ancef Medications spironolactone (ALDACTONE) 25 mg tablet Take 1 tablet by mouth once daily. exemestane (AROMASIN) 25 mg tablet Take 1 tablet by mouth once daily. losartan (COZAAR) 100 mg tablet Take 1 tablet by mouth every afternoon. insulin glargine (LANTUS SOLOSTAR U-100 INSULIN) 100 unit/mL (3 mL) Inject 20 Units subcutaneously every morning. LORazepam (ATIVAN) 0.5 mg Take 1 tablet by mouth three times a day as needed for up to 90 days. DROPLET PEN NEEDLE 31 gauge x 3/16 1 Each two times a day. ursodiol (LEENA) 250 mg tablet Take 250 mg by mouth two times a day. everolimus, antineoplastic, (AFINITOR) 10 mg tablet TAKE 1 TABLET ONCE DAILY Sodium Fluoride, Dental Rinse, 0.2 % SWISH 10 ML BY MOUTH THEN SPIT ONCE WEEKLY diphenhydrAMINE-Acetaminophen (TYLENOL PM EXTRA STRENGTH) 25-500 mg tab Take 1 tablet by mouth at bedtime as needed. ONETOUCH ULTRA PLUS TEST strp 1 Each two times a day. E11.65; No insulin Lancets Use with blood glucose test two times a day. Insulin Dep? No blood sugar diagnostic (BLOOD GLUCOSE TEST) test strip Use with blood glucose test two times a day. Insulin Dep? No aspirin, enteric coated (ASPIRIN, ENTERIC COATED) 81 mg EC tablet Take 81 mg by mouth once daily. pantoprazole DR (PROTONIX) 40 mg tablet Take 40 mg by mouth daily before breakfast. ascorbic acid, vitamin C, (VITAMIN C) 500 mg tablet Take 500 mg by mouth once daily. alpha tocopheryl acetate (VITAMIN E) 400 unit capsule Take 400 Units by mouth once daily. cyanocobalamin (VITAMIN B-12) 1,000 mcg tab Take 500 mcg by mouth once daily. VITAMIN D 50,000 unit capsule 1 capsule one time a week. CALCIUM CARBONATE (CALCIUM 500 ORAL) Take 1 tablet by mouth once daily. 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 Husam Hart in [place] Social History Tobacco Use Smoking status: Never Smokeless tobacco: Never Vaping Use Vaping status: Never Used Substance Use Topics Alcohol use: Yes Comment: 2 drinks per month Drug use: No ASSESSMENT/PLAN: 1. Primary hypertension - ICD9: 401.9, ICD10: I10 (primary diagnosis) improved but suboptimal control - Continue losartan and spironolactone. Add metoprolol succinate 25 mg daily. - Recommend home blood pressure monitoring, to bring results to next visit - Encourage sodium restriction, DASH or Mediterranean diet - Recommend regular aerobic exercise - SPIRONOLACTONE 25 MG TABLET - THYROID STIMULATING HORMONE - BASIC METABOLIC PANEL 2. Palpitations - ICD9: 785.1, ICD10: R00.2 Endorse maintaining adequate hydration, aim for 64 ounces per day, avoid caffeinated beverages, maintain protein intake to help with mild anemia. She will complete Zio through mail out. - THYROID STIMULATING HORMONE - BASIC METABOLIC PANEL - OUTSIDE VENDOR CARDIAC OUTPATIENT EXTENDED RHYTHM RECORDING (WITHOUT TELEMETRY)-will complete after latisha wrap is removed next week. Recheck approximately 4-6 weeks, she is going to [place] next week to see her daughter. Can add an additional 25 mg metoprolol succinate daily if BP not well controlled Drink about 64 ounces of fluid daily. Add metoprolol succinate 25 mg daily. Check your blood pressure once daily. Call and let us know if your blood pressure is running greater than 150/80 Cathy Burr APRN.CNS Medical Decision Making: Problems: Moderate: 1+ chronic illnesses with change Data: Unique test result(s) reviewed: 1 Risk: Moderate: Drug management Medical Decision Making Level: 4 - Moderate documented in this encounter [facility] 06-04-2024 History of Present illness Narrative Plastic Surgery Post Op Note CC: post op HPI: Pat Sorto is a 64 year old female who presents s/p Date of Surgery: 05/18/2024 Surgery: Left Breast Total Capsulectomy and Implant Removal Time Postop: 2.5 weeks Pt presents for routine post-op visit. Pain: control is good with medications (Tylenol) Drainage from incisions: denies Fever/chills: denies Antibiotics: Arlen, pt d/c after 2-3 days d/t diarrhea Drain removed at [facility] Activity: able to participate in ADLs within recommended restrictions Appetite: low appetite No concerns Hx Radiation Therapy: Yes- completed 12/2017 Hx Chemotherapy: Yes- completed in 2018 Surgical pathology in process PAST MEDICAL HISTORY Diagnosis Date Breast CA (HCC) 09/2017 Breast cyst, left 2007 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) 08/01/2022 Dehydration 10/30/2022 Functional diarrhea 09/20/2022 HTN (hypertension) Malignant neoplasm of left breast in female, estrogen receptor positive (HCC) 08/01/2022 Primary biliary cirrhosis (HCC) followed by Dr. Husam Hart in [place] PAST SURGICAL HISTORY Procedure Laterality Date ARTHRP ACETBLR/PROX FEM PROSTC AGRFT/ALGRFT Right 03/20/2019 Hip replacement, total ARTHRP KNE CONDYLE&PLATU MEDIAL&LAT COMPARTMENTS Left 02/2016 BIOPSY BREAST OPEN INCISIONAL Left 2007 [facility] benign pathology per patient BREAST RECONSTRUCTION Left 2018 fat graft/implant exchange DELIVERY ONLY 1996,1993 , low transverse MASTECTOMY HX Left 2018 AND with immediate reconstruction MASTECTOMY, SIMPLE, COMPLETE Left 05/18/2024 removal of implant, WLE of chest wall PAST SURGICAL HISTORY OF 2022 bronchoscopy Current Outpatient Medications on File Prior to Visit Medication Sig exemestane (AROMASIN) 25 mg tablet Take 1 tablet by mouth once daily. amLODIPine (NORVASC) 2.5 mg tablet Take 1 tablet by mouth once daily. losartan (COZAAR) 100 mg tablet Take 1 tablet by mouth every afternoon. benzonatate (TESSALON PERLE) 100 mg capsule Take 1-2 capsules by mouth three times a day as needed for cough. cetirizine (ZYRTEC) 10 mg tablet Take 1 tablet by mouth once daily. for nasal congestion and drainage insulin glargine (LANTUS SOLOSTAR U-100 INSULIN) 100 unit/mL (3 mL) Inject 20 Units subcutaneously every morning. LORazepam (ATIVAN) 0.5 mg Take 1 tablet by mouth three times a day as needed for up to 90 days. DROPLET PEN NEEDLE 31 gauge x 3/16 1 Each two times a day. ursodiol (LEENA) 250 mg tablet Take 250 mg by mouth two times a day. everolimus, antineoplastic, (AFINITOR) 10 mg tablet TAKE 1 TABLET ONCE DAILY Sodium Fluoride, Dental Rinse, 0.2 % SWISH 10 ML BY MOUTH THEN SPIT ONCE WEEKLY diphenhydrAMINE-Acetaminophen (TYLENOL PM EXTRA STRENGTH) 25-500 mg tab Take 1 tablet by mouth at bedtime as needed. ONETOUCH ULTRA PLUS TEST strp 1 Each two times a day. E11.65; No insulin Lancets Use with blood glucose test two times a day. Insulin Dep? No blood sugar diagnostic (BLOOD GLUCOSE TEST) test strip Use with blood glucose test two times a day. Insulin Dep? No aspirin, enteric coated (ASPIRIN, ENTERIC COATED) 81 mg EC tablet Take 81 mg by mouth once daily. pantoprazole DR (PROTONIX) 40 mg tablet Take 40 mg by mouth daily before breakfast. ascorbic acid, vitamin C, (VITAMIN C) 500 mg tablet Take 500 mg by mouth once daily. alpha tocopheryl acetate (VITAMIN E) 400 unit capsule Take 400 Units by mouth once daily. cyanocobalamin (VITAMIN B-12) 1,000 mcg tab Take 500 mcg by mouth once daily. VITAMIN D 50,000 unit capsule 1 capsule one time a week. CALCIUM CARBONATE (CALCIUM 500 ORAL) Take 1 tablet by mouth once daily. No current facility-administered medications on file prior to visit. BP 176/117 Pulse 96 PE Alert and oriented in NAD on room air Left breast incisions c/d/I and well approximated Left breast soft, mild fluid wave noted upon exam Bedside US obtained Left breast flaps soft, without s/s of ischemia, cap refill less than 3 sec Left breast flat closure No s/s of infection Drainage seroma/hematoma Procedure Note- Location:left Breast Safety check performed The patient agreed on the procedure to be done The left prepped with chloraprep and sterilely draped Under US guidance A 21 gauge butterfly needle was inserted into the left breast, fluid collection yielding 35 cc SS fluid A dry sterile dressing was applied, Latisha wrap applied to chest for compression The patient tolerated the procedure well. ASSESSMENT/PLAN: Expected post operative course Doing well -Continue chest compression for at least 5 days -Shower regularly to keep the incisions clean and inspect for signs of infection (due to decreased sensation) -Walking is encouraged, this helps to reduce swelling and lowers the chance of blood clots. If you were prescribed anticoagulation post operatively, please complete course as instructed -Activity restrictions reviewed with patient. Okay to raise arm above head at 4 weeks if you drains have all been removed and you do not have any wound healing issues. No heavy lifting/pushing/pulling greater than 10 lbs for 6 weeks after surgery. Do not perform dining room manager such as laundry and vacuuming. Do not perform yard work. -Please wear tight closing compression bra 4-6 weeks following surgery -No water submersion/baths until all incisions are fully healed -Okay for driving if not taking any narcotic pain medication and you feel safe to maneuver a car - If you have steri strips over incisions, please leave these in place, they will peel back on their own. Should you have new drainage, spreading redness, odor, or pain in the area please let our office know and we will instruct you further -okay to sleep on your back and lie flat, do not sleep on the surgical side 3-4 weeks after recent procedure -Okay for tylenol alternating with ibuprofen for pain control (do not exceed 4 g tylenol in a 24 hour period, okay for ibuprofen 600-800 mg every 8 hours as needed for pain) Encouraged patient to [facility] for all non-urgent questions or concerns. If experiencing wound complications or have any questions or concerns during business hours call [phone] or after hours (after 5 pm or on the weekend) call [phone] and ask for the plastic surgery resident / fellow sale professional digital marketing for further instructions. If you have increasing swelling or bruising, particularly one side greater than the other. If swelling and redness persists after a few days. If you have increased redness along the incision. If you have severe or increased pain not relieved by medication. If you have an oral temperature of 100.4 degrees or higher. If you have any yellow or greenish drainage from the incisions or notice a foul smell. If you have bleeding from the incisions that is difficult to control with light pressure If you have new chest pain, shortness of breathe or difficulty breathing Return to clinic 1 for VV and as needed for possible seroma accumulation Follow up with Dr. Marcelino on 06/25/2024 Mino Beard APRN.CNP June 04, 2024 Elements copied from my note dated 05/29/2024 have been reviewed and updated where appropriate, and all reflect current assessment and medical decision making from today's encounter. documented in this encounter [facility] 06-04-2024 Note [facility] 05-29-2024 Note [facility] 05-29-2024 History of Present illness Narrative Plastic Surgery Post Op Note CC: post op HPI: Pat Sorto is a 64 year old female who presents s/p Date of Surgery: 05/18/2024 Surgery: Left Breast Total Capsulectomy and Implant Removal Time Postop: 11 days Pt presents for routine post-op visit. Pain: control is good with medications (Tylenol) Drainage from incisions: denies Fever/chills: denies Antibiotics: Arlen, pt d/c after 2-3 days d/t diarrhea Drain output: ANNIE x1 < 20 x 2 days Activity: able to participate in ADLs within recommended restrictions Appetite: low appetite No concerns Hx Radiation Therapy: Yes- completed 12/2017 Hx Chemotherapy: Yes- completed in 2018 Surgical pathology in process PAST MEDICAL HISTORY Diagnosis Date Breast CA (HCC) 09/2017 Breast cyst, left 2008 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) 08/01/2022 Dehydration 10/30/2022 Functional diarrhea 09/20/2022 HTN (hypertension) Malignant neoplasm of left breast in female, estrogen receptor positive (HCC) 08/01/2022 Primary biliary cirrhosis (HCC) followed by Dr. Husam Hart in [place] PAST SURGICAL HISTORY Procedure Laterality Date ARTHRP ACETBLR/PROX FEM PROSTC AGRFT/ALGRFT Right 03/20/2019 Hip replacement, total ARTHRP KNE CONDYLE&PLATU MEDIAL&LAT COMPARTMENTS Left 02/2016 BIOPSY BREAST OPEN INCISIONAL Left 2007 [facility] benign pathology per patient BREAST RECONSTRUCTION Left 2018 fat graft/implant exchange DELIVERY ONLY 1996,1993 , low transverse MASTECTOMY HX Left 2018 AND with immediate reconstruction MASTECTOMY, SIMPLE, COMPLETE Left 05/18/2024 removal of implant, WLE of chest wall PAST SURGICAL HISTORY OF 2022 bronchoscopy Current Outpatient Medications on File Prior to Visit Medication Sig exemestane (AROMASIN) 25 mg tablet Take 1 tablet by mouth once daily. amLODIPine (NORVASC) 2.5 mg tablet Take 1 tablet by mouth once daily. losartan (COZAAR) 100 mg tablet Take 1 tablet by mouth every afternoon. benzonatate (TESSALON PERLE) 100 mg capsule Take 1-2 capsules by mouth three times a day as needed for cough. cetirizine (ZYRTEC) 10 mg tablet Take 1 tablet by mouth once daily. for nasal congestion and drainage insulin glargine (LANTUS SOLOSTAR U-100 INSULIN) 100 unit/mL (3 mL) Inject 20 Units subcutaneously every morning. LORazepam (ATIVAN) 0.5 mg Take 1 tablet by mouth three times a day as needed for up to 90 days. DROPLET PEN NEEDLE 31 gauge x 3/16 1 Each two times a day. ursodiol (LEENA) 250 mg tablet Take 250 mg by mouth two times a day. everolimus, antineoplastic, (AFINITOR) 10 mg tablet TAKE 1 TABLET ONCE DAILY Sodium Fluoride, Dental Rinse, 0.2 % SWISH 10 ML BY MOUTH THEN SPIT ONCE WEEKLY diphenhydrAMINE-Acetaminophen (TYLENOL PM EXTRA STRENGTH) 25-500 mg tab Take 1 tablet by mouth at bedtime as needed. ONETOUCH ULTRA PLUS TEST strp 1 Each two times a day. E11.65; No insulin Lancets Use with blood glucose test two times a day. Insulin Dep? No blood sugar diagnostic (BLOOD GLUCOSE TEST) test strip Use with blood glucose test two times a day. Insulin Dep? No aspirin, enteric coated (ASPIRIN, ENTERIC COATED) 81 mg EC tablet Take 81 mg by mouth once daily. pantoprazole DR (PROTONIX) 40 mg tablet Take 40 mg by mouth daily before breakfast. ascorbic acid, vitamin C, (VITAMIN C) 500 mg tablet Take 500 mg by mouth once daily. alpha tocopheryl acetate (VITAMIN E) 400 unit capsule Take 400 Units by mouth once daily. cyanocobalamin (VITAMIN B-12) 1,000 mcg tab Take 500 mcg by mouth once daily. VITAMIN D 50,000 unit capsule 1 capsule one time a week. CALCIUM CARBONATE (CALCIUM 500 ORAL) Take 1 tablet by mouth once daily. No current facility-administered medications on file prior to visit. There were no vitals taken for this visit. PE Alert and oriented in NAD on room air Left breast incisions c/d/I and well approximated Left breast soft, no fluid collections noted upon exam Left breast flaps soft, without s/s of ischemia, cap refill less than 3 sec Left breast flat closure No s/s of infection 1 ANNIE drains intact, patent, draining ss drainage ASSESSMENT/PLAN: Expected post operative course Doing well -ANNIE drain removed X 1. DSD applied. Okay to shower in 24 hours. Apply antibiotic ointment to drain sites and cover with band aid until they are healed -Shower regularly to keep the incisions clean and inspect for signs of infection (due to decreased sensation) -Walking is encouraged, this helps to reduce swelling and lowers the chance of blood clots. If you were prescribed anticoagulation post operatively, please complete course as instructed -Activity restrictions reviewed with patient. Okay to raise arm above head at 4 weeks if you drains have all been removed and you do not have any wound healing issues. No heavy lifting/pushing/pulling greater than 10 lbs for 6 weeks after surgery. Do not perform dining room manager such as laundry and vacuuming. Do not perform yard work. -Please wear tight closing compression bra 4-6 weeks following surgery -No water submersion/baths until all incisions are fully healed -Okay for driving if not taking any narcotic pain medication and you feel safe to maneuver a car - If you have steri strips over incisions, please leave these in place, they will peel back on their own. Should you have new drainage, spreading redness, odor, or pain in the area please let our office know and we will instruct you further -okay to sleep on your back and lie flat, do not sleep on the surgical side 3-4 weeks after recent procedure -Okay for tylenol alternating with ibuprofen for pain control (do not exceed 4 g tylenol in a 24 hour period, okay for ibuprofen 600-800 mg every 8 hours as needed for pain) Encouraged patient to communicate through MyChart for all non-urgent questions or concerns. If experiencing wound complications or have any questions or concerns during business hours call [phone] or after hours (after 5 pm or on the weekend) call [phone] and ask for the plastic surgery resident / fellow sale professional digital marketing for further instructions. If you have increasing swelling or bruising, particularly one side greater than the other. If swelling and redness persists after a few days. If you have increased redness along the incision. If you have severe or increased pain not relieved by medication. If you have an oral temperature of 100.4 degrees or higher. If you have any yellow or greenish drainage from the incisions or notice a foul smell. If you have bleeding from the incisions that is difficult to control with light pressure If you have new chest pain, shortness of breathe or difficulty breathing Return to clinic in 1 week post drain removal Follow up with Dr. Marcelino at first available Mino Beard APRN.CNP May 29, 2024 Elements copied from my note dated 05/25/2024 have been reviewed and updated where appropriate, and all reflect current assessment and medical decision making from today's encounter. documented in this encounter [facility] 05-27-2024 History of Present illness Narrative REASON FOR TODAY'S VISIT: Post - operative follow-up 05/18/24. HISTORY: She returns today for a post-operative check s/p WLE excision of biopsy proven skin recurrences x2 and implant explant. EXAMINATION: The IMF incision is healing well. redundant skin/NAC- laying nicely on chest wall her left arm lymphedema is clinically evident/pronounced today Patient's pathology report shows: Left chest, skin, excision (A) - IDC G3 involving subcutis, dermis and epidermis (including ulceration), Left breast, inframammary fold, excision IDC G3 spanning greater than 50 mm, involving capsule, subcutis, dermis and epidermis (including ulceration) IMPRESSION: 2018: Stage IIIC ER/SC positive, HER2 negative left breast cancer treated; NACT ([place]) ; MRM/impkant; PMRT (completed Dec 2017) July 2022; biopsy (punch) proven skin met PET c/w metastatic disease (EBUS: + FNA mediastinal node) verzenio/faslodex/ribociclib on Exemestane implant eventually became contracted and painful and informed discussion held regarding explantation for symptomatic relief/improved QOL; additionally the two biopsy proven skin mets would be excised as best as possible without impacting closure. She understands local excision of skin mets was not intended to be curative. 05/18/24: explantation and WLE of skin mets She is recovering very well- she says she already is significantly more comfortable. Discussed her lymphedema- she has a sleeve- but does not like wearing it and says the LE is not bothering her. She knows to se the sleeve if needed Discussed massage of redundant chest wall skin and stressed importance of continued ROM exercises Reviewed pathology finding with patient. Copy of report given to patient for her records. All questions answered. She will follow up with Dr. Carrasco as scheduled Eliz Bingham MD documented in this encounter [facility] 05-27-2024 Note [facility] 05-26-2024 Note Addended by: CATHY BURR on: 05/26/2024 12:30 PM Modules accepted: Orders [facility] 05-26-2024 Miscellaneous Notes Addended by: CATHY BURR on: 05/26/2024 12:30 PM Modules accepted: Orders documented in this encounter [facility] 05-26-2024 Telephone encounter Note Attempted to contact patient but no answer. Left message that labs done after appointment today were meant to be done next week prior to appointment. Labs from today have been cancelled, please stop in next week to have labs redone. Encounter routed to provider to place lab order again for patient to complete prior to appointment. [facility] 05-26-2024 Miscellaneous Notes Attempted to contact patient but no answer. Left message that labs done after appointment today were meant to be done next week prior to appointment. Labs from today have been cancelled, please stop in next week to have labs redone. Encounter routed to provider to place lab order again for patient to complete prior to appointment. documented in this encounter [facility] 05-26-2024 Note [facility] 05-26-2024 Note [facility] 05-26-2024 History of Present illness Narrative SUBJECTIVE: Pat Sorto is a 64 year old female. Urine Albumin:Creatinine Ratio Never done Diabetic Foot Exam Never done Depression Screening Never done Anxiety Screening Never done BP Controlled (<130/80) Never done DTaP,Tdap,Td Vaccine(1 - Tdap) Never done Hepatitis A Vaccine(1 of 2 - Risk 2-dose series) Never done Shingrix Vaccine(1 of 2) Never done Colorectal Cancer Screening Never done Hepatitis B Vaccine(1 of 3 - Risk 3-dose series) Never done RSV Vaccine(1 - Risk 60-74 years 1-dose series) Never done Cervical Cancer Screening due on 03/04/2019 Mammogram Screening due on 05/31/2023 Influenza Vaccine(1) due on 12/08/2023 Covid-19 Vaccine( season) due on 12/08/2023 Advance Directive Discussion Never done HPI Pat Sorto is a 64 year old female. 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) Axillary Pain, Left Musculoskeletal Chest Pain Examination of Participant in Clinical Trial Hypertension History of Radiation Therapy Total Knee Replacement Status, Left Primary Localized Osteoarthritis of Right Hip Status Post Right Hip Replacement Lumbar Degenerative Disc Disease Carcinoma of Left Breast Metastatic to Skin (Hcc) Class 1 Obesity Due to Excess Calories With Serious Comorbidity and Body Mass Index (Bmi) of 32.0 to 32.9 in Adult Metastasis to Mediastinal Lymph Node (Hcc) Functional Diarrhea Dehydration Lymphedema of Left Arm Gastroesophageal Reflux Disease Type 2 Diabetes Mellitus Without Complication, With Long-Term Current Use of Insulin (Hcc) Presents for ER follow up visit for hypertension. She was seen at [facility] ER 05/21/2024 for hypertensive urgency. She reported palpitations prior to arriving to the ER for 3 days previous. Blood pressure on arrival was 214/160. She was tachypneic, tachycardic showed sinus tachycardia. Pulse ox 97% on room air. Clinically appeared a bit dehydrated. EKG was completed rate [address] or T wave changes. She was treated with IV fluids in the ER. Labs are obtained including D-dimer, low risk Wells criteria with tachycardia and recent surgery. D-dimer was elevated so CTA chest and neck for PE completed and showed small bilateral pleural effusions. She was treated with home medications for blood pressure. She is status post 05/18/2024 Surgery: Left Breast Total Capsulectomy and Implant Removal with general anesthesia. Noted to be doing well at her one week follow up visit yesterday. Today reports noting palpitations daily, has been persistent since before surgery. Notes it most often when she is lying down. Lasts for seconds, can occur multiple times per day. Can feel short of breath with this otherwise no associated symptoms. No chest pain edema presyncope syncope. She does feel a bit puffy all over, especially in feet hands and belly. Weight is a bit increased. Today notes that she feels amlodipine was causing palpitations and would like to switch. She prefers a diuretic to a beta-anahy at this time. Has been consistently taking losartan. Home blood pressure readings over the last week have been 130/85 to 181/122. Heart rate 86-104 bpm. Notes will be heading out of town soon for her grandchild. Notes some concern with elevated blood pressure and heart rate, would like to get this under control. Last 14 Encounter BP Readings: Date: BP: 05/26/2024 155/96[bp average[ 05/18/2024 93/51 05/12/2024 142/92 05/07/2024 136/86 04/28/2024 126/80 04/24/2024 [deferred d/t lymphedema precautions[ 04/15/2024 146/92 04/13/2024 122/68 04/13/2024 142/92 04/10/2024 134/90 03/18/2024 138/88 01/06/2024 168/96 11/11/2023 118/77 10/23/2023 98/62 Review of Systems Constitutional: Negative. Objective BP 155/96 Pulse 95 Resp 16 Wt 80 kg (176 lb 5.9 oz) SpO2 98% BMI 28.90 kg/m Physical Exam Vitals and nursing note reviewed. Constitutional: Appearance: Normal appearance. HENT: Head: Normocephalic and atraumatic. Eyes: Conjunctiva/sclera: Conjunctivae normal. Neck: Thyroid: No thyromegaly. Vascular: Normal carotid pulses. No carotid bruit or JVD. Cardiovascular: Rate and Rhythm: Normal rate and regular rhythm. Pulses: Carotid pulses are 2+ on the right side and 2+ on the left side. Radial pulses are 2+ on the right side and 2+ on the left side. Heart sounds: Normal heart sounds. Pulmonary: Effort: Pulmonary effort is normal. Breath sounds: Normal breath sounds. Abdominal: General: Bowel sounds are normal. Palpations: Abdomen is soft. Musculoskeletal: Right lower leg: No edema. Left lower leg: No edema. Skin: General: Skin is warm and dry. Neurological: General: No focal deficit present. Mental Status: She is alert and oriented to person, place, and time. ALLERGIES Allergen Reactions Amoxicillin Rash rash arms trunk neck face, itching Chills Tolerates Ancef Medications exemestane (AROMASIN) 25 mg tablet Take 1 tablet by mouth once daily. amLODIPine (NORVASC) 2.5 mg tablet Take 1 tablet by mouth once daily. losartan (COZAAR) 100 mg tablet Take 1 tablet by mouth every afternoon. benzonatate (TESSALON PERLE) 100 mg capsule Take 1-2 capsules by mouth three times a day as needed for cough. cetirizine (ZYRTEC) 10 mg tablet Take 1 tablet by mouth once daily. for nasal congestion and drainage insulin glargine (LANTUS SOLOSTAR U-100 INSULIN) 100 unit/mL (3 mL) Inject 20 Units subcutaneously every morning. LORazepam (ATIVAN) 0.5 mg Take 1 tablet by mouth three times a day as needed for up to 90 days. DROPLET PEN NEEDLE 31 gauge x 3/16 1 Each two times a day. ursodiol (LEENA) 250 mg tablet Take 250 mg by mouth two times a day. everolimus, antineoplastic, (AFINITOR) 10 mg tablet TAKE 1 TABLET ONCE DAILY Sodium Fluoride, Dental Rinse, 0.2 % SWISH 10 ML BY MOUTH THEN SPIT ONCE WEEKLY diphenhydrAMINE-Acetaminophen (TYLENOL PM EXTRA STRENGTH) 25-500 mg tab Take 1 tablet by mouth at bedtime as needed. ONETOUCH ULTRA PLUS TEST strp 1 Each two times a day. E11.65; No insulin Lancets Use with blood glucose test two times a day. Insulin Dep? No blood sugar diagnostic (BLOOD GLUCOSE TEST) test strip Use with blood glucose test two times a day. Insulin Dep? No aspirin, enteric coated (ASPIRIN, ENTERIC COATED) 81 mg EC tablet Take 81 mg by mouth once daily. pantoprazole DR (PROTONIX) 40 mg tablet Take 40 mg by mouth daily before breakfast. ascorbic acid, vitamin C, (VITAMIN C) 500 mg tablet Take 500 mg by mouth once daily. alpha tocopheryl acetate (VITAMIN E) 400 unit capsule Take 400 Units by mouth once daily. cyanocobalamin (VITAMIN B-12) 1,000 mcg tab Take 500 mcg by mouth once daily. VITAMIN D 50,000 unit capsule 1 capsule one time a week. CALCIUM CARBONATE (CALCIUM 500 ORAL) Take 1 tablet by mouth once daily. 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 Husam Hart in [place] Social History Tobacco Use Smoking status: Never Smokeless tobacco: Never Vaping Use Vaping status: Never Used Substance Use Topics Alcohol use: Yes Comment: 2 drinks per month Drug use: No ASSESSMENT/PLAN: 1. Primary hypertension - ICD9: 401.9, ICD10: I10 (primary diagnosis) suboptimal control - Start spironolactone, stop amlodipine. - Recommend home blood pressure monitoring, to bring results to next visit - Encouraged sodium restriction, DASH or Mediterranean diet - Recommend regular aerobic exercise - SPIRONOLACTONE 25 MG TABLET - THYROID STIMULATING HORMONE - BASIC METABOLIC PANEL 2. Palpitations - ICD9: 785.1, ICD10: R00.2 Endorse maintaining adequate hydration, aim for 64 ounces per day, avoid caffeinated beverages, maintain protein intake to help with mild anemia. She will complete Zio through mail out. - THYROID STIMULATING HORMONE - BASIC METABOLIC PANEL - OUTSIDE VENDOR CARDIAC OUTPATIENT EXTENDED RHYTHM RECORDING (WITHOUT TELEMETRY) recheck approx one week with labs Cathy Burr APRN.FLOORING MACHINE FEEDER Medical Decision Making: Problems: Moderate: 1+ chronic illnesses with change Data: Unique source(s) for external note(s) reviewed: 1 Unique test result(s) reviewed: 3+ Risk: Moderate: Drug management Medical Decision Making Level: 4 - Moderate documented in this encounter [facility] 05-26-2024 Note [facility] 05-25-2024 Note [facility] 05-25-2024 History of Present illness Narrative Plastic Surgery Post Op Note CC: post op HPI: Pat Sorto is a 64 year old female who presents s/p Date of Surgery: 05/18/2024 Surgery: Left Breast Total Capsulectomy and Implant Removal Time Postop: 1 week Pt presents for initial post-op visit. Pain: control is good with medications (Tylenol) Drainage from incisions: denies Fever/chills: denies Antibiotics: Arlen pt d/c after 2-3 days d/t diarrhea Drain output: ANNIE x1 > 20 x 2 days Activity: able to participate in ADLs within recommended restrictions Appetite: low appetite No concerns Hx Radiation Therapy: Yes- completed 12/2017 Hx Chemotherapy: Yes- completed in 2018 Surgical pathology in process PAST MEDICAL HISTORY Diagnosis Date Breast CA (HCC) 09/2017 Breast cyst, left 2008 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) 08/01/2022 Dehydration 10/30/2022 Functional diarrhea 09/20/2022 HTN (hypertension) Malignant neoplasm of left breast in female, estrogen receptor positive (HCC) 08/01/2022 Primary biliary cirrhosis (HCC) followed by Dr. Husam Hart in [place] PAST SURGICAL HISTORY Procedure Laterality Date ARTHRP ACETBLR/PROX FEM PROSTC AGRFT/ALGRFT Right 03/20/2019 Hip replacement, total ARTHRP KNE CONDYLE&PLATU MEDIAL&LAT COMPARTMENTS Left 02/2016 BIOPSY BREAST OPEN INCISIONAL Left 2007 [facility] benign pathology per patient BREAST RECONSTRUCTION Left 2019 fat graft/implant exchange DELIVERY ONLY 1996,1993 , low transverse MASTECTOMY HX Left 2017 AND with immediate reconstruction MASTECTOMY, SIMPLE, COMPLETE Left 05/18/2024 removal of implant, WLE of chest wall PAST SURGICAL HISTORY OF 2022 bronchoscopy Current Outpatient Medications on File Prior to Visit Medication Sig exemestane (AROMASIN) 25 mg tablet Take 1 tablet by mouth once daily. amLODIPine (NORVASC) 2.5 mg tablet Take 1 tablet by mouth once daily. losartan (COZAAR) 100 mg tablet Take 1 tablet by mouth every afternoon. benzonatate (TESSALON PERLE) 100 mg capsule Take 1-2 capsules by mouth three times a day as needed for cough. cetirizine (ZYRTEC) 10 mg tablet Take 1 tablet by mouth once daily. for nasal congestion and drainage insulin glargine (LANTUS SOLOSTAR U-100 INSULIN) 100 unit/mL (3 mL) Inject 20 Units subcutaneously every morning. LORazepam (ATIVAN) 0.5 mg Take 1 tablet by mouth three times a day as needed for up to 90 days. DROPLET PEN NEEDLE 31 gauge x 3/16 1 Each two times a day. ursodiol (LEENA) 250 mg tablet Take 250 mg by mouth two times a day. everolimus, antineoplastic, (AFINITOR) 10 mg tablet TAKE 1 TABLET ONCE DAILY Sodium Fluoride, Dental Rinse, 0.2 % SWISH 10 ML BY MOUTH THEN SPIT ONCE WEEKLY diphenhydrAMINE-Acetaminophen (TYLENOL PM EXTRA STRENGTH) 25-500 mg tab Take 1 tablet by mouth at bedtime as needed. AquacueTOUCH ULTRA PLUS TEST strp 1 Each two times a day. E11.65; No insulin Lancets Use with blood glucose test two times a day. Insulin Dep? No blood sugar diagnostic (BLOOD GLUCOSE TEST) test strip Use with blood glucose test two times a day. Insulin Dep? No aspirin, enteric coated (ASPIRIN, ENTERIC COATED) 81 mg EC tablet Take 81 mg by mouth once daily. pantoprazole DR (PROTONIX) 40 mg tablet Take 40 mg by mouth daily before breakfast. ascorbic acid, vitamin C, (VITAMIN C) 500 mg tablet Take 500 mg by mouth once daily. alpha tocopheryl acetate (VITAMIN E) 400 unit capsule Take 400 Units by mouth once daily. cyanocobalamin (VITAMIN B-12) 1,000 mcg tab Take 500 mcg by mouth once daily. VITAMIN D 50,000 unit capsule 1 capsule one time a week. CALCIUM CARBONATE (CALCIUM 500 ORAL) Take 1 tablet by mouth once daily. No current facility-administered medications on file prior to visit. There were no vitals taken for this visit. PE Alert and oriented in NAD on room air Left breast incisions c/d/I and well approximated Left breast soft, no fluid collections noted upon exam Left breast flaps soft, without s/s of ischemia, cap refill less than 3 sec Left breast flat closure No s/s of infection 1 ANNIE drains intact, patent, draining ss drainage ASSESSMENT/PLAN: Expected post operative course Doing well -Continue to record remaining ANNIE drain output in cc's or ml's. -Shower regularly to keep the incisions clean and inspect for signs of infection (due to decreased sensation) -Walking is encouraged, this helps to reduce swelling and lowers the chance of blood clots. If you were prescribed anticoagulation post operatively, please complete course as instructed -Activity restrictions reviewed with patient. Okay to raise arm above head at 4 weeks if you drains have all been removed and you do not have any wound healing issues. No heavy lifting/pushing/pulling greater than 10 lbs for 6 weeks after surgery. Do not perform dining room manager such as laundry and vacuuming. Do not perform yard work. -Please wear tight closing compression bra 4-6 weeks following surgery -No water submersion/baths until all incisions are fully healed -Okay for driving if not taking any narcotic pain medication and you feel safe to maneuver a car - If you have steri strips over incisions, please leave these in place, they will peel back on their own. Should you have new drainage, spreading redness, odor, or pain in the area please let our office know and we will instruct you further -okay to sleep on your back and lie flat, do not sleep on the surgical side 3-4 weeks after recent procedure -Okay for tylenol alternating with ibuprofen for pain control (do not exceed 4 g tylenol in a 24 hour period, okay for ibuprofen 600-800 mg every 8 hours as needed for pain) Encouraged patient to communicate through [facility] for all non-urgent questions or concerns. If experiencing wound complications or have any questions or concerns during business hours call [phone] or after hours (after 5 pm or on the weekend) call [phone] and ask for the plastic surgery resident / fellow sale professional digital marketing for further instructions. If you have increasing swelling or bruising, particularly one side greater than the other. If swelling and redness persists after a few days. If you have increased redness along the incision. If you have severe or increased pain not relieved by medication. If you have an oral temperature of 100.4 degrees or higher. If you have any yellow or greenish drainage from the incisions or notice a foul smell. If you have bleeding from the incisions that is difficult to control with light pressure If you have new chest pain, shortness of breathe or difficulty breathing Return to clinic Saturday at for possible drain removal The patient is seen and examined by Mino Beard APRN.CNP and the following reflects her service. Scribed by Katie Carter RN I agree with the Chief Complaint, ROS, and Past Histories independently gathered by the clinical help desk support and the remaining scribed note accurately describes my personal service to the patient. Mino Beard APRN.CNP May 25, 2024 documented in this encounter [facility] 05-21-2024 Telephone encounter Note See nurse triage encounter 05/21/24 [facility] Work Phone: 05-21-2024 Miscellaneous Notes See nurse triage encounter 05/21/24 documented in this encounter [facility] 05-21-2024 Telephone encounter Note See triage nurse encounter [facility] 05-21-2024 Miscellaneous Notes See triage nurse encounter documented in this encounter [facility] 05-21-2024 Telephone encounter Note See pt's MyChart msg below. Pt's BP readings are very high but pt using a wrist BP cuff and has never had it checked for accuracy. Pt states she does feel her heart pounding and can feel it when she is saying down. With readings and this symptom, pt is encouraged to go to the ER. Pt verbalizes understanding. Pt states she does feel like her BP is high. Reason for Disposition [1] Systolic BP >= 160 OR Diastolic >= 100 AND [2] cardiac (e.g., breathing difficulty, chest pain) or neurologic symptoms (e.g., new-onset blurred or double vision, unsteady gait) Answer Assessment - Initial Assessment Questions 1. BLOOD PRESSURE: 1030 am was 172/116 Pt took at 1110 and result was 194/132 pulse was 104. Pt repeated again at 1123 and result was 214/153 pulse 111. 2. ONSET: Last couple days BP has been higher. 3. HOW: wrist BP cuff 4. HISTORY: yes 5. MEDICINES: Pt is on Amlodipine 2.5 mg once a day and Losartan 100 mg once a day. 6. OTHER SYMPTOMS: Denies blurred vision, chest pain, difficulty breathing, headache, weakness or dizziness. 7. :n/a Protocols used: Blood Pressure - [id number] ---- Message ----- From: Pat Sorto Sent: 05/21/2024 10:36 AM EST To: Wstr Intm My Chart Rx Pool Subject: HBP medications Hi Dr. Rivas, I am having some side effects with the new medication Amlodipine Besylate 2.5 MG. I know it's a very small dose, but I am getting swelling and retention of water, feels like my heartbeat is pounding, trouble sleeping , getting flushed and just can't get comfortable to lay down. I am also taking Losartan Potassium 100 MG. my BP has still be high avg. 150/110 with a pulse rate 85-93. this morning its 172/116. It's 10:30 am and I haven't taken any medication. Another question is the Losartan is prescribed to take in the afternoon. should I take that in the afternoon and amlodipine in the morning? Should I reach out to [facility]? [facility] 05-21-2024 Miscellaneous Notes See pt's MyChart msg below. Pt's BP readings are very high but pt using a wrist BP cuff and has never had it checked for accuracy. Pt states she does feel her heart pounding and can feel it when she is saying down. With readings and this symptom, pt is encouraged to go to the ER. Pt verbalizes understanding. Pt states she does feel like her BP is high. Reason for Disposition [1] Systolic BP >= 160 OR Diastolic >= 100 AND [2] cardiac (e.g., breathing difficulty, chest pain) or neurologic symptoms (e.g., new-onset blurred or double vision, unsteady gait) Answer Assessment - Initial Assessment Questions 1. BLOOD PRESSURE: 1030 am was 172/116 Pt took at 1110 and result was 194/132 pulse was 104. Pt repeated again at 1123 and result was 214/153 pulse 111. 2. ONSET: Last couple days BP has been higher. 3. HOW: wrist BP cuff 4. HISTORY: yes 5. MEDICINES: Pt is on Amlodipine 2.5 mg once a day and Losartan 100 mg once a day. 6. OTHER SYMPTOMS: Denies blurred vision, chest pain, difficulty breathing, headache, weakness or dizziness. 7. :n/a Protocols used: Blood Pressure - [id number] ---- Message ----- From: Pat Sorto Sent: 05/21/2024 10:36 AM EST To: [facility] My Chart Rx Pool Subject: HBP medications Hi Dr. Rivas, I am having some side effects with the new medication Amlodipine Besylate 2.5 MG. I know it's a very small dose, but I am getting swelling and retention of water, feels like my heartbeat is pounding, trouble sleeping , getting flushed and just can't get comfortable to lay down. I am also taking Losartan Potassium 100 MG. my BP has still be high avg. 150/110 with a pulse rate 85-93. this morning its 172/116. It's 10:30 am and I haven't taken any medication. Another question is the Losartan is prescribed to take in the afternoon. should I take that in the afternoon and amlodipine in the morning? Should I reach out to [facility]? documented in this encounter [facility] 05-20-2024 Telephone encounter Note Duplicate request. Svetlana Kong LPN [facility] 05-20-2024 Miscellaneous Notes Duplicate request. Svetlana Kong LPN documented in this encounter [facility] 05-19-2024 Telephone encounter Note Spoke to patient today as a follow-up from surgery Overall feels well NO issues with drain- output was 27 cc's at 10 pm last night and 24 cc's this morning She does report some flushing of her cheeks that she thinks may be attributed to anesthesia. No other symptoms noted such as SOB, rash, fever, or itching. Recommended observation for now and to update me if this does not improve over the next few days. Patient verbalized understanding No other questions Cayla Charles PA-C May 19, 2024 .11:59 AM [facility] 05-19-2024 Miscellaneous Notes Spoke to patient today as a follow-up from surgery Overall feels well NO issues with drain- output was 27 cc's at 10 pm last night and 24 cc's this morning She does report some flushing of her cheeks that she thinks may be attributed to anesthesia. No other symptoms noted such as SOB, rash, fever, or itching. Recommended observation for now and to update me if this does not improve over the next few days. Patient verbalized understanding No other questions Cayla Charles PA-C May 19, 2024 .11:59 AM documented in this encounter [facility] 05-18-2024 Surgery Surgical operation note BRIEF OPERATIVE / PROCEDURE NOTE LOG ID: [id number] SURGERY/PROCEDURE DATE: 05/18/2024 INCISION/PROCEDURE START TIME: 11:32 AM INCISION CLOSE/PROCEDURE END TIME: SURGEON(S)/PROCEDURALIST(S) AND JUNIOR DATABASE ADMINISTRATOR(S): Surgeons and Role: Panel 1: * Micki Marcelino MD - Primary * Nathan Osei MD - Resident - Assisting Panel 2: * Eliz Bingham MD - Primary Physician Invoicing Machine Operator: Cayla Charles PA-C SURGERY/PROCEDURE(S): Left WLE of skin recurrence; closure of mastectomy flap ANESTHESIA: General FINDINGS: see dictation ESTIMATED BLOOD LOSS: 0 SPECIMENS: left skin excision at 7 o'clock COMPLICATIONS: None DRAINS: Unmodified 1 15 round Urdu drain CLOSURE TECHNIQUE: Primary PRE-OP/PRE-PROCEDURE DIAGNOSIS: Left breast cancer recurrence POST-OP/POST-PROCEDURE DIAGNOSIS: Same as Preop Patient was accompanied to the next level of care by a licensed practitioner from the surgical team pending completion of this brief op note (or operative note) SIGNATURE: Cayla Charles PA-C PATIENT NAME: Pat Sorto DATE: May 18, 2024 TIME: 12:31 PM [facility] 05-18-2024 Surgical operation note BRIEF OPERATIVE / PROCEDURE NOTE LOG ID: [id number] SURGERY/PROCEDURE DATE: 05/18/2024 INCISION/PROCEDURE START TIME: 11:32 AM INCISION CLOSE/PROCEDURE END TIME: SURGEON(S)/PROCEDURALIST(S) AND JUNIOR DATABASE ADMINISTRATOR(S): Surgeons and Role: Panel 1: * Micki Marcelino MD - Primary * Nathan Osei MD - Resident - Assisting Panel 2: * Eliz Bingham MD - Primary Physician Invoicing Machine Operator: Cayla Charles PA-C SURGERY/PROCEDURE(S): Left WLE of skin recurrence; closure of mastectomy flap ANESTHESIA: General FINDINGS: see dictation ESTIMATED BLOOD LOSS: 0 SPECIMENS: left skin excision at 7 o'clock COMPLICATIONS: None DRAINS: Unmodified 1 15 round Urdu drain CLOSURE TECHNIQUE: Primary PRE-OP/PRE-PROCEDURE DIAGNOSIS: Left breast cancer recurrence POST-OP/POST-PROCEDURE DIAGNOSIS: Same as Preop Patient was accompanied to the next level of care by a licensed practitioner from the surgical team pending completion of this brief op note (or operative note) SIGNATURE: Cayla Charles PA-C PATIENT NAME: Pat Sorto DATE: May 18, 2024 TIME: 12:31 PM documented in this encounter [facility] 05-18-2024 Note [facility] 05-18-2024 Attending History and physical note UPDATED HISTORY AND PHYSICAL EXAMINATION SERVICE DATE: 05/18/2024 SERVICE TIME: 10:14 AM PHYSICAL EXAM MUST BE COMPLETED ON ADMISSION The History and Physical (completed in the past 30 days) has been reviewed and the patient has been examined. The contents accurately reflect the patient's condition with the following additions or revisions since the H&P was completed. Examination indicates no changes. This H&P can be found in the attached. SIGNATURE: Eliz Bingham MD PATIENT NAME: Pat Sorto DATE: May 18, 2024 TIME: 10:14 AM Source Note - Yolanda Seo PA-C - 05/04/2024 11:00 AM EST Images from the original note were not included. PREANESTHESIA CONSULT CLINIC TELEHEALTH VISIT Patient has been identified by name and date of : Yes This is a virtual visit using [employer] Zoom Video Visit. It require patient-provider interaction for the medical decision making as documented below. Reason for contact: PACC visit Accompanied by: Self Scheduled Surgery: Procedure(s) (LRB): REMOVAL IMPLANT BREAST (Left) CAPSULECTOMY BREAST IMPLANT COMPLETE INCLD REMOVAL OF ALL INTRACAPSULAR CONTENTS (Left) MASTECTOMY SIMPLE (Left) I have communicated my name and active licensure. The patient's identity and physical location were verified at the time of this visit. Either the patient or their legal traffic representative has been informed of the risks and benefits of -- and alternatives to -- treatment through a remote evaluation and consents to proceed with the evaluation remotely. ASSESSMENT: 1. Preop examination Scheduled for above procedure 2. Viral URI with cough Onset of symptoms 04/25 with nasal congestion, cough and fatigue. She took home COVID-19 test that was negative and tested negative for influenza in [facility] care. Chest x-ray was negative for pneumonia. She reports that symptoms are improving. She still has an AM cough of green sputum, but has noticed steady improvement of symptoms. She we will keep me updated when symptoms resolve. Addendum: patient was seen by internal medicine team on 05/07 and given a Z-pack. By her follow-up appt. 05/12, her symptoms had resolved. 3. Primary hypertension Patient is maintained on losartan. Patient mentions that BP readings have been less controlled at home with the losartan than they were with lisinopril. Her most recent BP reading in epic was 126/80 on 04/28. Patient questions the validity of this reading. She states she has gotten readings such as 140/110 at home. Patient will check home BP readings and keep me updated. Encouraged patient to reach out to PCP and/or manager of planning if the readings are consistently elevated. She plans to do this Per Inform[employer] message from patient - she states home BP was 153/101 on 05/03 152/105 and 138/93 on 05/04 139/79 on 05/05 158/104 05/06 She followed up with PCP on 05/07. She was given azithromycin and cough medication for URI and increased dose of losartan for uncontrolled HTN. Addendum; patient followed up with IM on 05/12/2023. She was given Amlodipine. Average BP was 136/91 on that date. 4. Chemotherapy-induced cardiomyopathy (HCC) Patient follows with cardiology due to borderline abnormal global myocardial strain pattern. She is on losartan daily. Patient is very active and asymptomatic. She denies CP, SOB, orthopnea, edema, syncope. Her most recent EF on echocardiogram 08/27/2023 was 59%. [employer] note reviewed from 10/09/2023 mentions recommendations for BP optimization. Will work to ensure BP is addressed (if needed) preop Cardiology note Dr. Peace (scanned) 10/09/2023 5. Gastroesophageal reflux disease, unspecified whether esophagitis present On Protonix. Patient reports symptoms are controlled on medication. Stable 6. Primary biliary cirrhosis (HCC) Maintained on ursodiol. Patient denies symptoms and is feeling well. 7. Malignant neoplasm of lower-outer quadrant of left breast of female, estrogen receptor positive (HCC) Scheduled for above procedure. Patient follows with Dr. Carrasco. Patient is maintained on Aromasin and Afinitor. Will discuss preoperative recommendations with Dr. Carrasco 8. Type 2 diabetes mellitus without complication, with long-term current use of insulin (HCC) On Lantus insulin every morning. Patient reports that home BS run around 150 in the morning and around 1 60-1 80 in the evening. Her most recent hemoglobin A1c was 7.2% on 03/18/2024 9. Anemia, unspecified type Mild anemia noted on most recent labs. Patient had updated CBC ordered by oncologist done today that showed resolution of anemia. 10. Anxiety Takes Ativan as needed at at bedtime. Patient reports that she tends to take 2 each night to help with sleep METS: Walk indoors, such as around the house (1.75 METs) Do light work around the house, such as dusting or washing dishes (2.70 METs) Take care of self; that is eating, dressing, bathing, using the toilet (2.75 METs) Walk a block or two on level ground (2.75 METs) Do moderate work around the house such as vacuuming, sweeping floors, or carrying in groceries (3.50 METs) Do yardwork, such as raking leaves, weeding,or pushing a power mower (4.50 METs) Climb a flight of stairs or walk up a hill (5.50 METs) Participate in strenuous sport, such as swimming, singles tennis, football, basketball, or skiing (7.50 METs) Do heavy work around the house, such as scrubbing floors, lifting or moving heavy furniture (8.00 METs) Patient denies any chest pain or undue shortness of breath with the above physical activity. Lots of walking, yoga a couple times per week, trampoline exercise for 20-23 minutes Denies edema, orthopnea, syncope ANESTHESIA FINDINGS: Intubation History: No history of difficult intubation Significant Anesthesia Considerations: Difficult IV/Vein Access: left arm tends to be difficult , but right arm is ok Airway Exam: General: Normal appearance Mallampati Score is CLASS II ULBT: Class I - Lower incisors can bite the upper lip above the renzo line Neck: Normal appearance and function Mouth: Normal tongue size and Mouth opening greater than 2 finger breaths Dentition: upper right molar and lower left molar missing, crowns Airway History: No abnormal airway history STOP BANG Score: Criteria: Snoring Age over 50 (64 year old) HTN Score = 3 Subjective CHIEF COMPLAINT: Patient presents with: Pre-Op Visit HPI: This is a 64 year old female who presents with left breast cancer s/p mastectomy, reconstruction, chemotherapy and radiation in 2018. There are abnormalities on posterior breast prosthesis and anterior left breast. She is being treated with Afinitor and Aromasin. She reports the left breast implant is hard and tender. She was diagnosed with malignant neoplasm of lower-outer quadrant of left breast of female. She elects to proceed with above procedure. 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) Axillary Pain, Left Musculoskeletal Chest Pain Examination of Participant in Clinical Trial Hypertension History of Radiation Therapy Total Knee Replacement Status, Left Primary Localized Osteoarthritis of Right Hip Status Post Right Hip Replacement Lumbar Degenerative Disc Disease Carcinoma of Left Breast Metastatic to Skin (Hcc) Class 1 Obesity Due to Excess Calories With Serious Comorbidity and Body Mass Index (Bmi) of 32.0 to 32.9 in Adult Metastasis to Mediastinal Lymph Node (Hcc) Functional Diarrhea Dehydration Lymphedema of Left Arm Gastroesophageal Reflux Disease Type 2 Diabetes Mellitus Without Complication, With Long-Term Current Use of Insulin (Hcc) PAST MEDICAL HISTORY Diagnosis Date Breast CA (HCC) 09/2017 Breast cyst, left 2007 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) 08/01/2022 Dehydration 10/30/2022 Functional diarrhea 09/20/2022 HTN (hypertension) Malignant neoplasm of left breast in female, estrogen receptor positive (HCC) 08/01/2022 Primary biliary cirrhosis (HCC) followed by Dr. Husam Hart in [place] PAST SURGICAL HISTORY Procedure Laterality Date ARTHRP ACETBLR/PROX FEM PROSTC AGRFT/ALGRFT Right 03/20/2019 Hip replacement, total ARTHRP KNE CONDYLE&PLATU MEDIAL&LAT COMPARTMENTS Left 02/2016 BIOPSY BREAST OPEN INCISIONAL Left 2007 [facility] benign pathology per patient BREAST RECONSTRUCTION Left 2019 fat graft/implant exchange DELIVERY ONLY 1996,1993 , low transverse MASTECTOMY HX Left 2017 AND with immediate reconstruction PAST SURGICAL HISTORY OF 2022 bronchoscopy FAMILY HISTORY Problem Relation Age of Onset Diabetes Mother Heart disease Mother Diabetes Father Hypertension Sister Hypertension Brother twin No Known Problems Son No Known Problems Son Hearing Loss Maternal Grandmother Heart disease Maternal Grandmother other (Lung Cancer) Maternal Grandfather smoker Diabetes Paternal Grandmother other (Lung Cancer) Paternal Grandfather smoker Anesthesia Problems No Family History Social History Tobacco Use Smoking status: Never Smokeless tobacco: Never Vaping Use Vaping status: Never Used Substance Use Topics Alcohol use: Yes Comment: 2 drinks per month Drug use: No ALLERGIES Allergen Reactions Amoxicillin Rash rash arms trunk neck face, itching Chills MEDICATIONS: Current Outpatient Medications Medication Sig LORazepam (ATIVAN) 0.5 mg Take 1 tablet by mouth three times a day as needed for up to 90 days. insulin glargine (LANTUS SOLOSTAR U-100 INSULIN) 100 unit/mL (3 mL) Inject 18 Units subcutaneously every morning. losartan (COZAAR) 50 mg tablet Take 1 tablet by mouth every afternoon. ursodiol (LEENA) 250 mg tablet Take 250 mg by mouth two times a day. everolimus, antineoplastic, (AFINITOR) 10 mg tablet TAKE 1 TABLET ONCE DAILY exemestane (AROMASIN) 25 mg tablet TAKE ONE TABLET BY MOUTH DAILY AFTER A MEAL diphenhydrAMINE-Acetaminophen (TYLENOL PM EXTRA STRENGTH) 25-500 mg tab Take 1 tablet by mouth at bedtime as needed. aspirin, enteric coated (ASPIRIN, ENTERIC COATED) 81 mg EC tablet Take 81 mg by mouth once daily. pantoprazole DR (PROTONIX) 40 mg tablet Take 40 mg by mouth daily before breakfast. benzonatate (TESSALON PERLE) 100 mg capsule Take 1 capsule by mouth three times a day as needed for cough. DROPLET PEN NEEDLE 31 gauge x 3/16 1 Each two times a day. Sodium Fluoride, Dental Rinse, 0.2 % SWISH 10 ML BY MOUTH THEN SPIT ONCE WEEKLY ONETOUCH ULTRA PLUS TEST strp 1 Each two times a day. E11.65; No insulin losartan (COZAAR) 25 mg tablet take 1 tablet by mouth once daily (Patient not taking: Reported on 03/18/2024) Lancets Use with blood glucose test two times a day. Insulin Dep? No blood sugar diagnostic (BLOOD GLUCOSE TEST) test strip Use with blood glucose test two times a day. Insulin Dep? No ascorbic acid, vitamin C, (VITAMIN C) 500 mg tablet Take 500 mg by mouth once daily. alpha tocopheryl acetate (VITAMIN E) 400 unit capsule Take 400 Units by mouth once daily. cyanocobalamin (VITAMIN B-12) 1,000 mcg tab Take 500 mcg by mouth once daily. VITAMIN D 50,000 unit capsule 1 capsule one time a week. CALCIUM CARBONATE (CALCIUM 500 ORAL) Take 1 tablet by mouth once daily. No current facility-administered medications for this visit. COVID-19 Immunization Status Overdue - Covid-19 Vaccine () Overdue since 12/08/2023 03/22/2021 Imm Admin: COVID-19 original vaccine, full dose, monovalent (MODERNA) 07/13/2020 Imm Admin: COVID-19 original vaccine, full dose, monovalent (MODERNA) 06/15/2020 Imm Admin: COVID-19 original vaccine, full dose, monovalent (MODERNA) Only the first 3 history entries have been loaded, but more history exists. Had COVID-19 ~2021. Denies complications or hospitalization. REVIEW OF SYSTEMS: Pain Assessment: General: No weight loss, malaise or fevers. 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 No neurological symptoms or problems. Respiratory: Positive for URI - onset of symptoms 04/25 - nasal congestion, productive cough and fatigue. COVID-19 and flu testing negative. No fever. 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 : N/A, No LMP recorded. Patient is postmenopausal. Endocrine: Diabetes Mellitus on insulin Denies thyroid disease/symptoms Denies oral steroids in the last 30 days Hematology: Chronic anti-coagulation / platelet meds (Aspirin) History of anemia Oncology: left breast cancer - see HPI Psych: Anxiety - takes Ativan at hs for anxiety/sleep Musculoskeletal: Negative for joint pain or swelling, back pain or muscle pain. Skin: Negative for lesions, rash and itching. Objective PHYSICAL EXAM: Pulse 82[fitbit[ Ht 5' 5.5[patient reported[ (1.66m) Wt 165 lb (74.8kg) BMI 27.03 kg/(m^2). VIDEO EXAM: (if completed, exam performed via video enabled technology) GENERAL: alert and appropriate, in no distress, well-hydrated, well nourished, and happy, smiling, interactive HEAD: normocephalic, no abnormality or lesion noted EYES: no injection NOSE: external nose normal without rhinorrhea NECK: full ROM RESPIRATORY: breathing non-labored and no grunting/flaring/retractions CHEST: equal chest rise with normal respiratory effort HEART: Patient confirmed pulse via fitbit. HR 82 BPM. No cyanosis ABDOMEN: soft and non-tender NEUROLOGIC: no cerebral deficits noted Diagnostic tests reviewed for today's visit: Lab Value Units Date High Low HB 12.3 g/dL 05/04/2024 15.5 11.5 HCT 37.3 % 05/04/2024 46.0 36.0 WBC 6.68 k/uL 05/04/2024 11.00 3.70 PLT 259 k/uL 05/04/2024 400 150 NA 138 mmol/L 04/10/2024 144 136 K 3.5 mmol/L 04/10/2024 5.1 3.7 GLUC 183 mg/dL 04/10/2024 99 74 BUN 25 mg/dL 04/10/2024 21 7 CREAT 0.91 mg/dL 04/10/2024 0.96 0.58 PTSEC No results within date range. INR No results within date range. APTT No results within date range. ALT 12 U/L 04/10/2024 38 7 AST 18 U/L 04/10/2024 35 13 TBILI 0.3 mg/dL 04/10/2024 1.3 0.2 TSH No results within date range. Hemoglobin A1C (%) Date Value 03/11/2023 6.1 10/07/2018 5.6 05/20/2018 5.7 Hemoglobin A1C (POCT) (%) Date Value 03/18/2024 7.2 07/16/2023 9.1 02/19/2022 5.9 EKG 12/17/2022 Normal sinus rhythm Echocardiogram 08/27/2023 CONCLUSIONS: - Technically difficult exam due to breast augmentation. - Exam indication: Baseline and serial evaluation in a patient undergoing therapy with cardiotoxic agents - The left ventricle is normal in size. Left ventricular systolic function is normal. EF = 59 5% (2D biplane) Grade I left ventricular diastolic dysfunction. - Global LV myocardial strain is borderline abnormal. - The right ventricle is normal in size. Right ventricular systolic function is normal. - Estimated right ventricular systolic pressure is 36 mmHg consistent with mild pulmonary hypertension. -Ascending aorta measures 3.5cm. - Exam was compared with the prior echocardiographic exam performed on 05/26/2018. Prior RVSP was 39mmHg. Prior EF was 66%. : This patient is optimally prepared for surgery BP was optimized by the internal medicine team URI symptoms resolved following Azithromycin treatment Patient was given instructions by her oncologist to hold Afinitor 1 week before and 2 weeks after surgery. CONSULTS: Patient does not require consults for optimization at this time. Patient followed up with PCP for BP optimization on 05/[address] 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 -KPS is 100%. -PET scan indicated disease left chest wall and mediastinal lymph nodes. -MRI brain negative. -Biopsy-proven disease recurrence left chest wall inferior and posterior to implant. -ER positive (99% strong staining intensity), SC positive (2% with strong staining intensity), HER2 2+; nonamplified by FISH testing. 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 -MRI Breast 03/28/2023 demonstrated PD and therapy was rotated to Faslodex and Afinitor. Oncology at [facility] recommended exemestane with Afinitor. -Symptomatically tolerating well. -Awaiting radiology report on PET. Reviewed images. no obvious new disease. Plan: -Continue exemestane and everolimus. -Follow up with endocrinology for management of diabetes. -Resume every 6 month bisphosphonate therapy. -PET in about 3-4 months pending final results of PET 04/06/2024. -Advised Aquaphor and light Band-Aid to the right breast skin lesion. Hopefully can be excised with upcoming surgery. (I42.7, T45.1X5A) Chemotherapy-induced cardiomyopathy (HCC) Assessment: -Earlier in her clinical course, patient had otherwise unexplained persistent tachycardia. Echo showed normal EF but I had reviewed with cardiology--there was a 10 percent change in the strain pattern suggestive of early cardiomyopathy. -I again discussed with her the importance of blood pressure control. Encouraged her to get a home blood pressure cuff and monitor blood pressures to share with her manager of planning and PCP. Plan: -Continue Cozaar and follow-up with PCP for management of hypertension. (M79.89) Swelling of limb Assessment: -Has history of left-sided lymphedema. -New posterior medial left upper arm pain. Plan: -Ultrasound arm to rule out DVT. If negative, referral back to PT for fitting for compression sleeve with glove/gauntlet. Portions of this documentation were copied and pasted from my previous office visit note dated 01/06/2024 in order to provide a cohesive continuity of the history. The note has been reviewed and edited and updated as necessary. I spent a total of 25 minutes on the date of the service which included preparing to see the patient, [id number] patient care, completing clinical documentation, obtaining and/or reviewing separately obtained history, performing a medically appropriate examination, counseling and educating the patient/family/caregiver, communicating with other HCPs (not separately reported), and communicating results to the patient/family/caregiver. Serena Carrasco, DO The Following Tests/Procedures Have Been Initiated: CBC per oncologist. Planned Anesthetic: Per anesthesia choice Instructions Given to Patient: Patient given verbal instructions and voices comprehension and compliance. Copy sent electronically via My Chart, email, or mobile device. This is a virtual visit. It required patient-provider interaction for the medical decision making as documented above. SIGNATURE: Yolanda Seo PA-C PATIENT NAME: Pat Sorto DATE: 05/04/2024 TIME: 11:10 AM PAGER/CONTACT #: [facility] Work Phone: 05-18-2024 History and physical note UPDATED HISTORY AND PHYSICAL EXAMINATION SERVICE DATE: 05/18/2024 SERVICE TIME: 10:14 AM PHYSICAL EXAM MUST BE COMPLETED ON ADMISSION The History and Physical (completed in the past 30 days) has been reviewed and the patient has been examined. The contents accurately reflect the patient's condition with the following additions or revisions since the H&P was completed. Examination indicates no changes. This H&P can be found in the attached. SIGNATURE: Eliz Bingham MD PATIENT NAME: Pat Sorto DATE: May 18, 2024 TIME: 10:14 AM Source Note - Yolanda Seo PA-C - 05/04/2024 11:00 AM EST Images from the original note were not included. PREANESTHESIA CONSULT CLINIC TELEHEALTH VISIT Patient has been identified by name and date of : Yes This is a virtual visit using [employer] Video Visit. It require patient-provider interaction for the medical decision making as documented below. Reason for contact: PACC visit Accompanied by: Self Scheduled Surgery: Procedure(s) (LRB): REMOVAL IMPLANT BREAST (Left) CAPSULECTOMY BREAST IMPLANT COMPLETE INCLD REMOVAL OF ALL INTRACAPSULAR CONTENTS (Left) MASTECTOMY SIMPLE (Left) I have communicated my name and active licensure. The patient's identity and physical location were verified at the time of this visit. Either the patient or their legal traffic representative has been informed of the risks and benefits of -- and alternatives to -- treatment through a remote evaluation and consents to proceed with the evaluation remotely. ASSESSMENT: 1. Preop examination Scheduled for above procedure 2. Viral URI with cough Onset of symptoms 04/25 with nasal congestion, cough and fatigue. She took home COVID-19 test that was negative and tested negative for influenza in [facility] care. Chest x-ray was negative for pneumonia. She reports that symptoms are improving. She still has an AM cough of green sputum, but has noticed steady improvement of symptoms. She we will keep me updated when symptoms resolve. Addendum: patient was seen by internal medicine team on 05/07 and given a Z-pack. By her follow-up appt. 05/12, her symptoms had resolved. 3. Primary hypertension Patient is maintained on losartan. Patient mentions that BP readings have been less controlled at home with the losartan than they were with lisinopril. Her most recent BP reading in [facility] was 126/80 on 04/28. Patient questions the validity of this reading. She states she has gotten readings such as 140/110 at home. Patient will check home BP readings and keep me updated. Encouraged patient to reach out to PCP and/or manager of planning if the readings are consistently elevated. She plans to do this Per [employer] message from patient - she states home BP was 153/101 on 05/03 152/105 and 138/93 on 05/04 139/79 on 05/05 158/104 05/06 She followed up with PCP on 05/07. She was given azithromycin and cough medication for URI and increased dose of losartan for uncontrolled HTN. Addendum; patient followed up with IM on 05/12/2023. She was given Amlodipine. Average BP was 136/91 on that date. 4. Chemotherapy-induced cardiomyopathy (HCC) Patient follows with cardiology due to borderline abnormal global myocardial strain pattern. She is on losartan daily. Patient is very active and asymptomatic. She denies CP, SOB, orthopnea, edema, syncope. Her most recent EF on echocardiogram 08/27/2023 was 59%. [employer] note reviewed from 10/09/2023 mentions recommendations for BP optimization. Will work to ensure BP is addressed (if needed) preop Cardiology note Dr. Peace (scanned) 10/09/2023 5. Gastroesophageal reflux disease, unspecified whether esophagitis present On Protonix. Patient reports symptoms are controlled on medication. Stable 6. Primary biliary cirrhosis (HCC) Maintained on ursodiol. Patient denies symptoms and is feeling well. 7. Malignant neoplasm of lower-outer quadrant of left breast of female, estrogen receptor positive (HCC) Scheduled for above procedure. Patient follows with Dr. Carrasco. Patient is maintained on Aromasin and Afinitor. Will discuss preoperative recommendations with Dr. Carrasco 8. Type 2 diabetes mellitus without complication, with long-term current use of insulin (HCC) On Lantus insulin every morning. Patient reports that home BS run around 150 in the morning and around 1 60-1 80 in the evening. Her most recent hemoglobin A1c was 7.2% on 03/18/2024 9. Anemia, unspecified type Mild anemia noted on most recent labs. Patient had updated CBC ordered by oncologist done today that showed resolution of anemia. 10. Anxiety Takes Ativan as needed at at bedtime. Patient reports that she tends to take 2 each night to help with sleep METS: Walk indoors, such as around the house (1.75 METs) Do light work around the house, such as dusting or washing dishes (2.70 METs) Take care of self; that is eating, dressing, bathing, using the toilet (2.75 METs) Walk a block or two on level ground (2.75 METs) Do moderate work around the house such as vacuuming, sweeping floors, or carrying in groceries (3.50 METs) Do yardwork, such as raking leaves, weeding,or pushing a power mower (4.50 METs) Climb a flight of stairs or walk up a hill (5.50 METs) Participate in strenuous sport, such as swimming, singles tennis, football, basketball, or skiing (7.50 METs) Do heavy work around the house, such as scrubbing floors, lifting or moving heavy furniture (8.00 METs) Patient denies any chest pain or undue shortness of breath with the above physical activity. Lots of walking, yoga a couple times per week, trampoline exercise for 20-23 minutes Denies edema, orthopnea, syncope ANESTHESIA FINDINGS: Intubation History: No history of difficult intubation Significant Anesthesia Considerations: Difficult IV/Vein Access: left arm tends to be difficult , but right arm is ok Airway Exam: General: Normal appearance Mallampati Score is CLASS II ULBT: Class I - Lower incisors can bite the upper lip above the renzo line Neck: Normal appearance and function Mouth: Normal tongue size and Mouth opening greater than 2 finger breaths Dentition: upper right molar and lower left molar missing, crowns Airway History: No abnormal airway history STOP BANG Score: Criteria: Snoring Age over 50 (64 year old) HTN Score = 3 Subjective CHIEF COMPLAINT: Patient presents with: Pre-Op Visit HPI: This is a 64 year old female who presents with left breast cancer s/p mastectomy, reconstruction, chemotherapy and radiation in 2018. There are abnormalities on posterior breast prosthesis and anterior left breast. She is being treated with Afinitor and Aromasin. She reports the left breast implant is hard and tender. She was diagnosed with malignant neoplasm of lower-outer quadrant of left breast of female. She elects to proceed with above procedure. 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) Axillary Pain, Left Musculoskeletal Chest Pain Examination of Participant in Clinical Trial Hypertension History of Radiation Therapy Total Knee Replacement Status, Left Primary Localized Osteoarthritis of Right Hip Status Post Right Hip Replacement Lumbar Degenerative Disc Disease Carcinoma of Left Breast Metastatic to Skin (Hcc) Class 1 Obesity Due to Excess Calories With Serious Comorbidity and Body Mass Index (Bmi) of 32.0 to 32.9 in Adult Metastasis to Mediastinal Lymph Node (Hcc) Functional Diarrhea Dehydration Lymphedema of Left Arm Gastroesophageal Reflux Disease Type 2 Diabetes Mellitus Without Complication, With Long-Term Current Use of Insulin (Hcc) PAST MEDICAL HISTORY Diagnosis Date Breast CA (HCC) 09/2017 Breast cyst, left 2007 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) 08/01/2022 Dehydration 10/30/2022 Functional diarrhea 09/20/2022 HTN (hypertension) Malignant neoplasm of left breast in female, estrogen receptor positive (HCC) 08/01/2022 Primary biliary cirrhosis (HCC) followed by Dr. Husam Hart in [place] PAST SURGICAL HISTORY Procedure Laterality Date ARTHRP ACETBLR/PROX FEM PROSTC AGRFT/ALGRFT Right 03/20/2019 Hip replacement, total ARTHRP KNE CONDYLE&PLATU MEDIAL&LAT COMPARTMENTS Left 02/2016 BIOPSY BREAST OPEN INCISIONAL Left 2007 [facility] benign pathology per patient BREAST RECONSTRUCTION Left 2019 fat graft/implant exchange DELIVERY ONLY 1996,1993 , low transverse MASTECTOMY HX Left 2018 AND with immediate reconstruction PAST SURGICAL HISTORY OF 2022 bronchoscopy FAMILY HISTORY Problem Relation Age of Onset Diabetes Mother Heart disease Mother Diabetes Father Hypertension Sister Hypertension Brother twin No Known Problems Son No Known Problems Son Hearing Loss Maternal Grandmother Heart disease Maternal Grandmother other (Lung Cancer) Maternal Grandfather smoker Diabetes Paternal Grandmother other (Lung Cancer) Paternal Grandfather smoker Anesthesia Problems No Family History Social History Tobacco Use Smoking status: Never Smokeless tobacco: Never Vaping Use Vaping status: Never Used Substance Use Topics Alcohol use: Yes Comment: 2 drinks per month Drug use: No ALLERGIES Allergen Reactions Amoxicillin Rash rash arms trunk neck face, itching Chills MEDICATIONS: Current Outpatient Medications Medication Sig LORazepam (ATIVAN) 0.5 mg Take 1 tablet by mouth three times a day as needed for up to 90 days. insulin glargine (LANTUS SOLOSTAR U-100 INSULIN) 100 unit/mL (3 mL) Inject 18 Units subcutaneously every morning. losartan (COZAAR) 50 mg tablet Take 1 tablet by mouth every afternoon. ursodiol (LEENA) 250 mg tablet Take 250 mg by mouth two times a day. everolimus, antineoplastic, (AFINITOR) 10 mg tablet TAKE 1 TABLET ONCE DAILY exemestane (AROMASIN) 25 mg tablet TAKE ONE TABLET BY MOUTH DAILY AFTER A MEAL diphenhydrAMINE-Acetaminophen (TYLENOL PM EXTRA STRENGTH) 25-500 mg tab Take 1 tablet by mouth at bedtime as needed. aspirin, enteric coated (ASPIRIN, ENTERIC COATED) 81 mg EC tablet Take 81 mg by mouth once daily. pantoprazole DR (PROTONIX) 40 mg tablet Take 40 mg by mouth daily before breakfast. benzonatate (TESSALON PERLE) 100 mg capsule Take 1 capsule by mouth three times a day as needed for cough. DROPLET PEN NEEDLE 31 gauge x 3/16 1 Each two times a day. Sodium Fluoride, Dental Rinse, 0.2 % SWISH 10 ML BY MOUTH THEN SPIT ONCE WEEKLY AquacueTOUCH ULTRA PLUS TEST strp 1 Each two times a day. E11.65; No insulin losartan (COZAAR) 25 mg tablet take 1 tablet by mouth once daily (Patient not taking: Reported on 03/18/2024) Lancets Use with blood glucose test two times a day. Insulin Dep? No blood sugar diagnostic (BLOOD GLUCOSE TEST) test strip Use with blood glucose test two times a day. Insulin Dep? No ascorbic acid, vitamin C, (VITAMIN C) 500 mg tablet Take 500 mg by mouth once daily. alpha tocopheryl acetate (VITAMIN E) 400 unit capsule Take 400 Units by mouth once daily. cyanocobalamin (VITAMIN B-12) 1,000 mcg tab Take 500 mcg by mouth once daily. VITAMIN D 50,000 unit capsule 1 capsule one time a week. CALCIUM CARBONATE (CALCIUM 500 ORAL) Take 1 tablet by mouth once daily. No current facility-administered medications for this visit. COVID-19 Immunization Status Overdue - Covid-19 Vaccine () Overdue since 12/08/2023 03/22/2021 Imm Admin: COVID-19 original vaccine, full dose, monovalent (MODERNA) 07/13/2020 Imm Admin: COVID-19 original vaccine, full dose, monovalent (MODERNA) 06/15/2020 Imm Admin: COVID-19 original vaccine, full dose, monovalent (MODERNA) Only the first 3 history entries have been loaded, but more history exists. Had COVID-19 ~2021. Denies complications or hospitalization. REVIEW OF SYSTEMS: Pain Assessment: General: No weight loss, malaise or fevers. 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 No neurological symptoms or problems. Respiratory: Positive for URI - onset of symptoms 04/25 - nasal congestion, productive cough and fatigue. COVID-19 and flu testing negative. No fever. 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 : N/A, No LMP recorded. Patient is postmenopausal. Endocrine: Diabetes Mellitus on insulin Denies thyroid disease/symptoms Denies oral steroids in the last 30 days Hematology: Chronic anti-coagulation / platelet meds (Aspirin) History of anemia Oncology: left breast cancer - see HPI Psych: Anxiety - takes Ativan at hs for anxiety/sleep Musculoskeletal: Negative for joint pain or swelling, back pain or muscle pain. Skin: Negative for lesions, rash and itching. Objective PHYSICAL EXAM: Pulse 82[fitbit[ Ht 5' 5.5[patient reported[ (1.66m) Wt 165 lb (74.8kg) BMI 27.03 kg/(m^2). VIDEO EXAM: (if completed, exam performed via video enabled technology) GENERAL: alert and appropriate, in no distress, well-hydrated, well nourished, and happy, smiling, interactive HEAD: normocephalic, no abnormality or lesion noted EYES: no injection NOSE: external nose normal without rhinorrhea NECK: full ROM RESPIRATORY: breathing non-labored and no grunting/flaring/retractions CHEST: equal chest rise with normal respiratory effort HEART: Patient confirmed pulse via fitbit. HR 82 BPM. No cyanosis ABDOMEN: soft and non-tender NEUROLOGIC: no cerebral deficits noted Diagnostic tests reviewed for today's visit: Lab Value Units Date High Low HB 12.3 g/dL 05/04/2024 15.5 11.5 HCT 37.3 % 05/04/2024 46.0 36.0 WBC 6.68 k/uL 05/04/2024 11.00 3.70 PLT 259 k/uL 05/04/2024 400 150 NA 138 mmol/L 04/10/2024 144 136 K 3.5 mmol/L 04/10/2024 5.1 3.7 GLUC 183 mg/dL 04/10/2024 99 74 BUN 25 mg/dL 04/10/2024 21 7 CREAT 0.91 mg/dL 04/10/2024 0.96 0.58 PTSEC No results within date range. INR No results within date range. APTT No results within date range. ALT 12 U/L 04/10/2024 38 7 AST 18 U/L 04/10/2024 35 13 TBILI 0.3 mg/dL 04/10/2024 1.3 0.2 TSH No results within date range. Hemoglobin A1C (%) Date Value 03/11/2023 6.1 10/07/2018 5.6 05/20/2018 5.7 Hemoglobin A1C (POCT) (%) Date Value 03/18/2024 7.2 07/16/2023 9.1 02/19/2022 5.9 EKG 12/17/2022 Normal sinus rhythm Echocardiogram 08/27/2023 CONCLUSIONS: - Technically difficult exam due to breast augmentation. - Exam indication: Baseline and serial evaluation in a patient undergoing therapy with cardiotoxic agents - The left ventricle is normal in size. Left ventricular systolic function is normal. EF = 59 5% (2D biplane) Grade I left ventricular diastolic dysfunction. - Global LV myocardial strain is borderline abnormal. - The right ventricle is normal in size. Right ventricular systolic function is normal. - Estimated right ventricular systolic pressure is 36 mmHg consistent with mild pulmonary hypertension. -Ascending aorta measures 3.5cm. - Exam was compared with the prior echocardiographic exam performed on 05/26/2018. Prior RVSP was 39mmHg. Prior EF was 66%. : This patient is optimally prepared for surgery BP was optimized by the internal medicine team URI symptoms resolved following Azithromycin treatment Patient was given instructions by her oncologist to hold Afinitor 1 week before and 2 weeks after surgery. CONSULTS: Patient does not require consults for optimization at this time. Patient followed up with PCP for BP optimization on 05/[address] Carracso 04/10/2024 ASSESSMENT/PLAN: (C50.912, Z17.0) Malignant neoplasm of left breast in female, estrogen receptor positive, unspecified site of breast (HCC) (primary encounter diagnosis) (C50.912, C79.2) 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) (C77.1) 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 lymph node (HCC) Assessment: -cT3 cN3 (high axillary LNs and possible internal mammary merlyn involvement) MX stage IIIC ER/SC positive, HER2 non overexpressed invasive ductal carcinoma of the right breast. -KPS is 100%. -PET scan indicated disease left chest wall and mediastinal lymph nodes. -MRI brain negative. -Biopsy-proven disease recurrence left chest wall inferior and posterior to implant. -ER positive (99% strong staining intensity), SC positive (2% with strong staining intensity), HER2 2+; nonamplified by FISH testing. 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 -MRI Breast 03/28/2023 demonstrated PD and therapy was rotated to Faslodex and Afinitor. Oncology at [facility] recommended exemestane with Afinitor. -Symptomatically tolerating well. -Awaiting radiology report on PET. Reviewed images. no obvious new disease. Plan: -Continue exemestane and everolimus. -Follow up with endocrinology for management of diabetes. -Resume every 6 month bisphosphonate therapy. -PET in about 3-4 months pending final results of PET 04/06/2024. -Advised Aquaphor and light Band-Aid to the right breast skin lesion. Hopefully can be excised with upcoming surgery. (I42.7, T45.1X5A) Chemotherapy-induced cardiomyopathy (HCC) Assessment: -Earlier in her clinical course, patient had otherwise unexplained persistent tachycardia. Echo showed normal EF but I had reviewed with cardiology--there was a 10 percent change in the strain pattern suggestive of early cardiomyopathy. -I again discussed with her the importance of blood pressure control. Encouraged her to get a home blood pressure cuff and monitor blood pressures to share with her manager of planning and PCP. Plan: -Continue Cozaar and follow-up with PCP for management of hypertension. (M79.89) Swelling of limb Assessment: -Has history of left-sided lymphedema. -New posterior medial left upper arm pain. Plan: -Ultrasound arm to rule out DVT. If negative, referral back to PT for fitting for compression sleeve with glove/gauntlet. Portions of this documentation were copied and pasted from my previous office visit note dated 01/06/2024 in order to provide a cohesive continuity of the history. The note has been reviewed and edited and updated as necessary. I spent a total of 25 minutes on the date of the service which included preparing to see the patient, [id number] patient care, completing clinical documentation, obtaining and/or reviewing separately obtained history, performing a medically appropriate examination, counseling and educating the patient/family/caregiver, communicating with other HCPs (not separately reported), and communicating results to the patient/family/caregiver. Serena Carrasco, DO The Following Tests/Procedures Have Been Initiated: CBC per oncologist. Planned Anesthetic: Per anesthesia choice Instructions Given to Patient: Patient given verbal instructions and voices comprehension and compliance. Copy sent electronically via My Chart, email, or mobile device. This is a virtual visit. It required patient-provider interaction for the medical decision making as documented above. SIGNATURE: Yolanda Seo PA-C PATIENT NAME: Pat Sorto DATE: 05/04/2024 TIME: 11:10 AM PAGER/CONTACT #: documented in this encounter [facility] 05-13-2024 Note [facility] 05-13-2024 History of Present illness Narrative Images from the original note were not included. Episode Visit Count: 3 Therapist That Will Accept/Oversee The Plan Of Care: Vijayjovanna Bobbi Start of Care Date: 04/24/24 Onset Date: 03/24/24 Plan of Care Certification Date: 04/24/24 Next Certification Due Date: 05/25/24 Patient Identified by Name and Date of : Yes REHABILITATION AND SPORTS THERAPY PHYSICAL THERAPY DISCONTINUANCE OF CARE PLAN OF CARE UPDATE: Assessment: Pat Sorto is discontinued from Physical Therapy services due to goal achievement.. Patient was seen for 3 visits from Start of Care Date: 04/24/24 to 05/13/2024 and treatment included: Therapeutic exercise, Manual therapy, Self-retirement management, and Patient/Family/Caregiver Education. Goals for Episode of Care: established 04/24/24 Goals updated on 05/13/2024. Jones in home exercise program. (Met) Patient will decrease pain rating by 2 points to meet minimal clinical important difference for numeric pain rating scale. (Met) Patient will increase active ROM of L shoulder to 170-180 deg flex, full abduction with no pain to allow pt to improve performance of ADLs and golfing without restrictions. (Met) Perform golfing, all daily and household activities with decreased report of symptoms/pain in 4 weeks.(Partially Met)-has not attempted golfing yet (d/t weather) Patient / family knowledgeable re: all pertinent aspects of CDT (Met) Patient / family independent with donning / doffing compression garment and proper wearing schedule and care of garment (Met) Patient will decrease circumferential measurements by 0.5 to 1.0cm in the following areas: L UE for decreased recurrence of infection, improved mobility, improved range of motion and allow appropriate fit in compressive garment. Pt will obtain appropriate and effective compression garment(s) to promote effective self-management. (Not Met)-Pt deferring until after upcoming surgery. Patient Goals: To get ready for upcoming surgery for best effects. To help heal and get motion back as quickly as possible. (Met) SUBJECTIVE: Pt states she feels much better about her arm mobility and function. Notes she has not attempted golf swing, yet d/t weather (winter). Pain: Pain Pain Level: 0 Pain Location: Upper Arm - Left, Elbow - Left Post Treatment Pain Post Treatment Pain Level: 0 PROMIS Scales 06/02/2019 Higher is Better Phys Func - T Score 41 (mild dysfunction) Phys Func - Percentile 18 06/02/2019 Lower is Better Pain Interference - T Score 56 (mild) Pain Interference - Percentile 27 T-scores: mean of general population = 50. 5 points is clinically meaningfully difference Percentiles provide an indication of how the patient's score ranks in relation to the general population. Higher percentile rankings indicate better function/quality of life. 50th percentile is the average of the general population and indicates half of respondents had a worse score. OBJECTIVE MEASURES WITH LEVEL OF FUNCTION: Lymphedema Skin Comments:: Mild soft tissue restrictions anterior superior breast/chest. UE AROM L Shoulder Extension: 70 Degrees L Shoulder Flex: 170 Degrees L Shoulder ABduction: 180 Degrees (plus) L Shoulder External Rotation: 83 Degrees TREATMENT: Manual Therapy: 1: MFR cross-hand techniques for soft tissue restrictions with good releases palpable in axilla, subaxillary/lateral thorax, and anterior chest/shoulder locations. Pt noting stretching, tingling sensations in axilla and anterior chest during treatment. Skilled Intervention: Manual skills to improve joint mobility, ROM, and decrease pain. Utilized anatomy knowledge of the therapist, and assessment of patient's response to intervention. Self-Senior Care Management: 1: Reviewed HEP and continued discussion of compresion garments. Pt states she has a sleeve that she can wear if she needs to, but does not want a glove at this time. She states she will wait to see how arm responds following upcoming procedure (removal of prosthesis) to see if she needs a new or different type of compression garment. Skilled Intervention: Skilled judgment in the selection of proper modification for activity of daily living/home management based on clinical presentation, deficits, and needs. Reviewed patient specific diagnosis in relation to activities of daily living/home management. Billing Manual TherapyTreatment Minutes: 32 Self-Care/Home Management Treatment Minutes: 15 Skilled Treatment Time Minutes (timed and untimed codes): 47 Total Session Time (minutes): 47 Session Start Time : 849 Session Stop Time : 936 Bobbi Vanegas PT documented in this encounter [facility] 05-12-2024 Note [facility] 05-12-2024 History of Present illness Narrative SUBJECTIVE Pat Sorto is a 64 year old female who presents for recheck of cough. She was seen in [facility] on April 28, 2024 for acute cough for 3 days prior to arrival that was worsening. Negative for influenza. No acute findings on chest x-ray. She reports taking cancer therapy and that can increase blood pressure. She notes that lisinopril was switched to losartan due to drug interaction with this medication. Presents today for recheck of cough and congestion and for check of blood pressure. Symptoms include: Fever (>=100.4F): No or Chills: No Cough: resolved Shortness of breath: No or Difficulty breathing: No Fatigue: resolved Muscle aches: No Headache: No New loss of smell or taste: No Sore throat: resolved Nasal congestion: Yes or Rhinorrhea: Yes Nausea: No or Vomiting: No Diarrhea: No OTC meds/remedies that patient has tried: OTC cold medicine. She reports that she has never smoked. She has never used smokeless tobacco. HTN: She reports receiving cancer medication treatment that can cause increased blood pressure. Drug interaction with lisinopril so was switched to losartan. She reports blood pressure readings have been in the range of 138/93 to 152/110 since January or so. Dose of losartan increased from 50 mg to 100 mg daily. Notes home blood pressures are improved. Without report of headache, chest pain, palpitations, dyspnea, peripheral edema, orthopnea, and PND. Last 14 Encounter BP Readings: Date: BP: 05/12/2024 142/92 05/07/2024 136/86 04/28/2024 126/80 04/24/2024 [deferred d/t lymphedema precautions[ 04/15/2024 146/92 04/13/2024 142/92 04/10/2024 134/90 03/18/2024 138/88 01/06/2024 168/96 11/11/2023 118/77 10/23/2023 98/62 10/18/2023 145/82 08/05/2023 149/78 07/16/2023 122/86 OBJECTIVE PHYSICAL EXAM: BP (P) 136/91 Pulse (P) 91 Resp 16 Wt 77 kg (169 lb 12.1 oz) BMI 27.82 kg/m General appearance: alert, cooperative, pleasant, in no acute distress Head: Normocephalic Eyes: conjunctiva/corneas normal Ears: R TM - clear with good landmarks, nl light reflex, L TM - clear with good landmarks, nl light reflex Nose: purulent rhinorrhea, mucosa erythematous and swollen Oropharynx: moist without lesions Neck: supple and small, benign anterior cervical nodes bilaterally Heart: regular rate and rhythm, without murmur Lungs: clear to auscultation, without rales or wheeze, good air exchange ASSESSMENT/PLAN (I10) Primary hypertension (primary encounter diagnosis) (R05.1) Acute cough ASSESSMENT/PLAN: 1. Acute cough - ICD9: 786.2, ICD10: R05.1 (primary diagnosis) Resolved 2. Primary hypertension - ICD9: 401.9, ICD10: I10 suboptimal control - Continue losartan 100 mg daily, add amlodipine 2.5 mg daily - Recommend home blood pressure monitoring, to bring results to next visit - Encourage sodium restriction, DASH or Mediterranean diet - Recommend regular aerobic exercise 3. Sore throat - ICD9: 462, ICD10: J02.9 Strep was negative, did improve with antibiotic. Resolved. Return to clinic for recheck of blood pressure in 1 to 4 weeks. Cathy Burr APRN.FLOORING MACHINE FEEDER Medical Decision Making: Problems: Low: Acute, uncomplicated illness or injury Moderate: 1+ chronic illnesses with change Risk: Moderate: Drug management Medical Decision Making Level: 4 - Moderate documented in this encounter [facility] 05-11-2024 Note [facility] 05-11-2024 History of Present illness Narrative AMBULATORY PATIENT EDUCATION NOTE TOPIC: SURVIVAL SKILLS: Pre and post op education for breast surgery Complication Prevention Disease Education Fatigue Management Medical Equipment annie drain, prevena Pain Management Symptom Management Wound Care Discussed stopping Exemestane today as she had not stopped yet READINESS TO LEARN COGNITIVE ABILITY: Alert and oriented MOTIVATION TO LEARN: Eager Interested FAMILY SUPPORT: Unable to assess - Family not present INSTRUCTION PROVIDED TO: Patient PATIENT LEARNS BEST BY: Multiple Methods FACTORS AFFECTING LEARNING: None PHYSICAL LIMITATIONS AFFECTING LEARNING: None LEARNING RESPONSE DIAGNOSIS: malignant neoplasm of lower-outer quadrant of left breast METHOD OF INSTRUCTION: Teach Back annie drain, prevena Individual instruction Written instruction/Handouts Verbal instruction Demonstration/Hands on Learning Video PATIENT / FAMILY RESPONSE: Verbalizes understanding of: DRAIN CARE- Correct procedure to perform drain care EQUIPMENT USE-Correct use of Equipment POST-OPERATIVE INSTRUCTIONS-Correct actions to take to reduce postoperative complications PRE-OPERATIVE INSTRUCTIONS-Correct action to take to follow pre-operative instructions SYMPTOM MANAGEMENT-Correct actions to take to manage symptoms associated with his/her disease/illness WORSENING CONDITION-Signs and symptoms of a worsening condition that warrant a call to the physician WOUND CARE-Correct procedure to perform wound care FOLLOW-UP PLAN: Complete - No need for follow-up SUPPLEMENTAL MATERIAL: Your Surgical Guide for [facility] REFERRAL (RECOMMENDATION): None Electronically Signed By: Bianca Addison RN In Department: BREAST CENTER Time spent on patient education: 30 minutes. documented in this encounter [facility] 05-07-2024 Instructions Cathy Burr APRN.CNS - 05/07/2024 7:50 AM EST Check your blood pressure daily. Take losartan 100 mg once daily for blood pressure Avoid cough and cold medications that can increase your blood pressure such as pseudoephedrine documented in this encounter [facility] 05-07-2024 History of Present illness Narrative SUBJECTIVE Pat Sorto is a 64 year old female who presents with 7 days of symptoms that are improving but now with sore throat and nasal congestion. She was seen in [facility] on April 28, 2024 for acute cough for 3 days prior to arrival that was worsening. Negative for influenza. No acute findings on chest x-ray. She reports taking cancer therapy and that can increase blood pressure. She notes that lisinopril was switched to losartan due to drug interaction with this medication. Presents today for report of cough and congestion and for checkup blood pressure. Symptoms include: Fever (>=100.4F): No or Chills: No Cough: Yes Shortness of breath: No or Difficulty breathing: No Fatigue: Yes Muscle aches: No Headache: No New loss of smell or taste: No Sore throat: Yes Nasal congestion: Yes or Rhinorrhea: Yes Nausea: No or Vomiting: No Diarrhea: No OTC meds/remedies that patient has tried: OTC cold medicine. She reports that she has never smoked. She has never used smokeless tobacco. HTN: She reports receiving cancer medication treatment that can cause increased blood pressure. Drug interaction with lisinopril so was switched to losartan. She reports blood pressure readings have been in the range of 138/93 to 152/110 since January or so. Without report of headache, chest pain, palpitations, dyspnea, peripheral edema, orthopnea, and PND. Last 14 Encounter BP Readings: Date: BP: 04/28/2024 126/80 04/24/2024 [deferred d/t lymphedema precautions[ 04/15/2024 146/92 04/13/2024 142/92 04/10/2024 134/90 03/18/2024 138/88 01/06/2024 168/96 11/11/2023 118/77 10/23/2023 98/62 10/18/2023 145/82 08/05/2023 149/78 07/16/2023 122/86 07/15/2023 [not assessed today[ 07/08/2023 130/88 OBJECTIVE PHYSICAL EXAM: BP 136/86 Pulse 92 Resp 16 Wt 76 kg (167 lb 8.8 oz) BMI 27.46 kg/m General appearance: alert, cooperative, pleasant, in no acute distress Head: Normocephalic Eyes: conjunctiva/corneas normal Ears: R TM - clear with good landmarks, nl light reflex, L TM - clear with good landmarks, nl light reflex Nose: purulent rhinorrhea, mucosa erythematous and swollen Oropharynx: moist without lesions Neck: supple and small, benign anterior cervical nodes bilaterally Heart: regular rate and rhythm, without murmur Lungs: clear to auscultation, without rales or wheeze, good air exchange ASSESSMENT/PLAN (R05.1) Acute cough (primary encounter diagnosis) (I10) Primary hypertension ASSESSMENT/PLAN: 1. Acute cough - ICD9: 786.2, ICD10: R05.1 (primary diagnosis) Resolving 2. Primary hypertension - ICD9: 401.9, ICD10: I10 suboptimal control - Increase losartan from 50 mg to 100 mg daily - Recommend home blood pressure monitoring, to bring results to next visit - Encouraged sodium restriction, DASH or Mediterranean diet - Recommend regular aerobic exercise 3. Sore throat - ICD9: 462, ICD10: J02.9 Requests antibody, strep test. She may have a superinfection due to duration of her illness. - AZITHROMYCIN 250 MG TABLET - STREP A MOLECULAR (POC) Return to clinic for recheck of blood pressure in 1 to 4 weeks. Cathy Burr APRN.FLOORING MACHINE FEEDER Medical Decision Making: Problems: Low: Acute, uncomplicated illness or injury Moderate: 1+ chronic illnesses with change Risk: Moderate: Drug management Medical Decision Making Level: 4 - Moderate documented in this encounter [facility] 05-07-2024 Note [facility] 05-06-2024 Note [facility] 05-06-2024 History of Present illness Narrative Episode Visit Count: 2 Therapist That Will Accept/Oversee The Plan Of Care: Bobbi Vanegas Start of Care Date: 04/24/24 Onset Date: 03/24/24 Plan of Care Certification Date: 04/24/24 Next Certification Due Date: 05/25/24 Patient Identified by Name and Date of : Yes REHABILITATION AND SPORTS THERAPY PHYSICAL THERAPY TREATMENT NOTE ASSESSMENT: Pat Sorto tolerated the session with no issues. She demonstrated improvements in L shoulder AROM. The patient will continue to benefit from ongoing skilled physical therapy for reassessment by supervising therapist. PLAN FOR NEXT VISIT: POC update with finalization of HEP in preparation for her surgical procedure on 05/18. SUBJECTIVE: Pt reporting no questions and good compliance with HEP. Pain: Pain Pain Level: 0 Pain Location: Upper Arm - Left, Elbow - Left Post Treatment Pain Post Treatment Pain Level: 0 OBJECTIVE MEASURES WITH LEVEL OF FUNCTION: Lymphedema Skin Comments:: mild soft tissue restrictions noted L axillary, L upper chest/anterior shoulder areas. Pt noting tightness in these areas and lower subaxillary at level of base of breast. UE AROM L Shoulder Flex: 170 Degrees L Shoulder ABduction: 180 Degrees (plus) TREATMENT: Therapeutic Exercise: 1: Therapist performed passive L shld flexion, abduction, and ER stretches with pt in semi-reclined position (elevated head d/t pt coughing). Skilled Intervention: Patient was educated in proper exercise technique and purpose for exercises. Skilled judgment was used in selection of appropriate interventions. Correct performance of therapeutic exercises was facilitated with verbal and visual cuing. Patient education as noted. Manual Therapy: 1: MFR cross-hand techniques for soft tissue restrictions with good releases palpable in axilla, subaxillary/lateral thorax, and anterior chest/shoulder locations. Pt noting stretching, tingling sensations in axilla and anterior chest during treatment. Skilled Intervention: Manual skills to improve joint mobility, ROM, and decrease pain. Utilized anatomy knowledge of the therapist, and assessment of patient's response to intervention. Manual techniques were performed with clinical decision-making regarding amount of stretch, intensity of pressure and assessment of responses. Manual techniques to facilitate lymphatic dynamics and improve condition of tissue. Billing Therapeutic Exercise Treatment Minutes: 15 Manual TherapyTreatment Minutes: 41 Skilled Treatment Time Minutes (timed and untimed codes): 56 Total Session Time (minutes): 56 Session Start Time : 958 Session Stop Time : 1054 Bobbi Vanegas PT documented in this encounter [facility] 05-05-2024 History of Present illness Narrative Primary Care Pharmacy Visit CC (Reason for Consult): (E11.9) Type 2 diabetes mellitus without complication, unspecified whether fpc insulin use (HCC) (primary encounter diagnosis) Goal(s): A1c <8% per consult Last Collaborating Provider Visit: 03/18/24 Pat Sorto is a 64 year old female presenting for follow up visit telephone call. Patient consents to pharmacy collaborative practice agreement. Last Pharmacy Visit: 02/25/24 Interim Events: - 04/15/24 endo visit - Lantus increased to 18 units daily HPI: Reports doing well States BGs have been improving, still sometimes high depending on what she eats States BG was a little high today, but thinks its from the fruit she had last night. Has been eating a lot of oranges lately Current DM Medications: Lantus 18 units once daily Previously Trialed DM Meds: Ozempic - diarrhea/vomiting Metformin - unable to tolerate Glipizide - stopped when insulin started by endo Diet Denies any recent changes GLYCEMIC CONTROL: Glucometer present at visit: Yes Hypoglycemia: No SMBGS (Fingersticks) Date Fasting AM Before Dinner 05/05 254 05/04 189 220 05/03 169 168 05/02 105 179 05/01 114 147 04/30 101 04/29 153 88* 04/28 89* 139 04/27 176 142 04/26 128 04/25 224 04/24 128 AVG 152 154 *was sick those days (had fruit bowl last night) 7-day average: 172 14 day av 30 day av Past medical history reviewed. ALLERGIES Allergen Reactions Amoxicillin Rash rash arms trunk neck face, itching Chills Current Outpatient Medications Medication Sig Dispense Refill benzonatate (TESSALON PERLE) 100 mg capsule Take 1 capsule by mouth three times a day as needed for cough. 21 capsule 0 LORazepam (ATIVAN) 0.5 mg Take 1 tablet by mouth three times a day as needed for up to 90 days. 90 tablet 2 DROPLET PEN NEEDLE 31 gauge x 3/16 1 Each two times a day. insulin glargine (LANTUS SOLOSTAR U-100 INSULIN) 100 unit/mL (3 mL) Inject 18 Units subcutaneously every morning. 15 mL 2 losartan (COZAAR) 50 mg tablet Take 1 tablet by mouth every afternoon. ursodiol (LEENA) 250 mg tablet Take 250 mg by mouth two times a day. everolimus, antineoplastic, (AFINITOR) 10 mg tablet TAKE 1 TABLET ONCE DAILY 90 tablet 3 Sodium Fluoride, Dental Rinse, 0.2 % SWISH 10 ML BY MOUTH THEN SPIT ONCE WEEKLY exemestane (AROMASIN) 25 mg tablet TAKE ONE TABLET BY MOUTH DAILY AFTER A MEAL 90 tablet 5 diphenhydrAMINE-Acetaminophen (TYLENOL PM EXTRA STRENGTH) 25-500 mg tab Take 1 tablet by mouth at bedtime as needed. ONETOUCH ULTRA PLUS TEST strp 1 Each two times a day. E11.65; No insulin 200 Each 3 losartan (COZAAR) 25 mg tablet take 1 tablet by mouth once daily (Patient not taking: Reported on 03/18/2024) 30 tablet 5 Lancets Use with blood glucose test two times a day. Insulin Dep? No 200 Each 3 blood sugar diagnostic (BLOOD GLUCOSE TEST) test strip Use with blood glucose test two times a day. Insulin Dep? No 200 Each 3 aspirin, enteric coated (ASPIRIN, ENTERIC COATED) 81 mg EC tablet Take 81 mg by mouth once daily. pantoprazole DR (PROTONIX) 40 mg tablet Take 40 mg by mouth daily before breakfast. ascorbic acid, vitamin C, (VITAMIN C) 500 mg tablet Take 500 mg by mouth once daily. alpha tocopheryl acetate (VITAMIN E) 400 unit capsule Take 400 Units by mouth once daily. cyanocobalamin (VITAMIN B-12) 1,000 mcg tab Take 500 mcg by mouth once daily. VITAMIN D 50,000 unit capsule 1 capsule one time a week. CALCIUM CARBONATE (CALCIUM 500 ORAL) Take 1 tablet by mouth once daily. No current facility-administered medications for this visit. Pill bottles are not present. Adherence: denies missed doses. Rx coverage: Payor: MEDICARE / Plan: MEDICARE A AND B / Product Type: Medicare / Medications affordable? Yes PHARMACOTHERAPY PREVENTATIVE MEDS: On LATISHA/ARB: Yes On Statin: Yes On ASA: No EXAM: There were no vitals taken for this visit. Last 3 Encounter BP Readings: Date: BP: 04/28/2024 126/80 04/24/2024 [deferred d/t lymphedema precautions[ 04/15/2024 146/92 Wt: 74.8 kg (165 lb) BMI: 27.04 kg/(m^2) LABS: Lab Results Component Value Date HBA1C 7.2 03/18/2024 HBA1C 9.1 07/16/2023 HBA1C 6.1 03/11/2023 HBA1C 5.9 02/19/2022 HBA1C 5.6 10/07/2018 HBA1C 5.7 05/20/2018 Glucose 183 04/10/2024 BUN 25 04/10/2024 Creatinine, Whole Blood (iSTAT) 0.91 04/10/2024 Sodium 138 04/10/2024 Potassium 3.5 04/10/2024 Chloride 102 04/10/2024 CO2 27 04/10/2024 Protein, Total 7.1 04/10/2024 Albumin 3.9 04/10/2024 Calcium 9.3 04/10/2024 Alkaline Phosphatase 65 04/10/2024 Bilirubin, Total 0.3 04/10/2024 AST 18 04/10/2024 ALT 12 04/10/2024 Lab Results Component Value Date CHOL 202 11/11/2023 CHOL 167 10/07/2018 LDL 125 11/11/2023 LDL 103 10/07/2018 HDL 27 11/11/2023 HDL 34 10/07/2018 TG 250 11/11/2023 TG 151 10/07/2018 No results found for: UALBCR eGFR-All Other Races (.) Date Value 02/15/2021 59 Estimated Glomerular Filtration Rate (mL/min/1.73m ) Date Value 04/10/2024 70 ASSESSMENT/PLAN: 1. Type 2 diabetes mellitus without complication, unspecified whether fpc insulin use (HCC) - ICD9: 250.00, ICD10: E11.9 - Improving control - Increase Lantus 20 units once daily - Blood glucose monitoring on a twice daily schedule - Counseled on healthy diet and regular exercise - Discussed diabetic education issues of hypoglycemic/hyperglycemic symptoms - Follow up in 6 weeks, sooner should any other issues arise. Follow Up: Next PCP visit: 03/23/25 Next endo visit: 10/14/24 Next PharmD visit: 06/16/24 Tatianna Crook PharmD, BCACP Primary Care Clinical Putty Remover documented in this encounter [facility] 05-05-2024 Note [facility] 05-04-2024 Telephone encounter Note As discussed during our virtual visit, [employer] message will be sent to patient with instructions. Thank you! Yolanda Seo PA-C 05/04/2024 [facility] 05-04-2024 Miscellaneous Notes As discussed during our virtual visit, [employer] message will be sent to patient with instructions. Thank you! Yolanda Seo PA-C 05/04/2024 Giuseppe Guerrero. Actually she should hold the drug for 1 week prior to and 2 weeks after surgery as it can interfere with wound healing. Serena Carrasco DO [place] afternoon Dr. Carrasco, This patient was seen by me for virtual PACC for upcoming Procedure(s) (LRB): REMOVAL IMPLANT BREAST (Left) CAPSULECTOMY BREAST IMPLANT COMPLETE INCLD REMOVAL OF ALL INTRACAPSULAR CONTENTS (Left) MASTECTOMY SIMPLE (Left) scheduled with Dr. Marcelino and Dr. Bingham on 05/18/2024 under General. Patient is on Afinitor. She mentioned being told by a surgical nurse to hold this medication for 1 week before and after surgery. Can you confirm this is the appropriate plan for this patient? (I can't find that information documented). Thank you for your time and help, Yolanda Seo PA-C PACC documented in this encounter [facility] 05-04-2024 Telephone encounter Note Giuseppe Guerrero. Actually she should hold the drug for 1 week prior to and 2 weeks after surgery as it can interfere with wound healing. Serena Carrasco DO [facility] 05-04-2024 Telephone encounter Note [place] afternoon Dr. Carrasco, This patient was seen by me for virtual PACC for upcoming Procedure(s) (LRB): REMOVAL IMPLANT BREAST (Left) CAPSULECTOMY BREAST IMPLANT COMPLETE INCLD REMOVAL OF ALL INTRACAPSULAR CONTENTS (Left) MASTECTOMY SIMPLE (Left) scheduled with Dr. Marcelino and Dr. Bingham on 05/18/2024 under General. Patient is on Afinitor. She mentioned being told by a surgical nurse to hold this medication for 1 week before and after surgery. Can you confirm this is the appropriate plan for this patient? (I can't find that information documented). Thank you for your time and help, Yolanda Seo PA-C PACC [facility] 05-04-2024 Instructions Yolanda Seo PA-C - 05/04/2024 11:39 AM EST Images from the original note were not included. [facility] Pre-Anesthesia Consultation [facility] PATIENT PREOPERATIVE INSTRUCTIONS iMcki Marcelino MD has scheduled you for your procedure at this surgery center: [facility]: [phone] --[id number] [id number] Location is near [facility]. Please read below carefully for your personalized instructions. Dietary Restrictions: - No solid food after midnight. - You may have 12 ounces of clear liquids (water, clear juices such as apple juice or gatorade, carbonated beverages, clear tea, black coffee, jello) until 2 hours before scheduled arrival at facility. - We recommend getting up early enough to have a bottle of water or gatorade in the morning before surgery, but no matter what you must STOP drinking 2 hours before arrival Medications: Unless instructed differently below, stay on all of your medications until your surgery. If you start any new medications after today's visit, please contact your surgeon. Pre-Surgery Med Instructions Medication Instructions LORazepam (ATIVAN) 0.5 mg Ok to take the evening before surgery if needed insulin glargine (LANTUS SOLOSTAR U-100 INSULIN) 100 unit/mL (3 mL) Please check your blood sugar the morning of your procedure. If it is greater than 200, please take half of your morning Lantus insulin (9 units). If it is less than 200, please hold your insulin until after your procedure. losartan (COZAAR) 50 mg tablet Take the day of surgery with a small sip of water ursodiol (LEENA) 250 mg tablet Please hold this the morning of your procedure everolimus, antineoplastic, (AFINITOR) 10 mg tablet I am checking with your prescribing physician for instructions on holding this. exemestane (AROMASIN) 25 mg tablet Take the day of surgery with a small sip of water diphenhydrAMINE-Acetaminophen (TYLENOL PM EXTRA STRENGTH) 25-500 mg tab Ok to take the evening before surgery if needed aspirin, enteric coated (ASPIRIN, ENTERIC COATED) 81 mg EC tablet Stop 7 days before surgery pantoprazole DR (PROTONIX) 40 mg tablet Take the day of surgery with a small sip of water If you start any new medications after today's visit, please contact the surgeon's office. If you are currently using a pxty-nkg-qofl injectable or oral medication for diabetes or weight loss such as Dulaglutide (Trulicity), Exenatide (Byetta, Bydureon), Liraglutide (Victoza, Saxenda), Semaglutide (Ozempic, Wegovy, Rybelsus), or Tirzepatide (Mounjaro), the medicine should be stopped at least 7 days before surgery. These medicines can cause food to remain in your stomach for a very long time and increase the risks from surgery and anesthesia. Not stopping the medication for a long enough time may result in your surgery being rescheduled. Blood Thinning Medications: Please follow your surgeon's instructions regarding which gfor-tzn-jsltmrs supplements and blood thinners you need to avoid prior to your upcoming procedure - Stop NSAIDS (Ibuprofen, Advil, Aleve, Motrin, Celebrex, Mobic, etc.) 7 days before surgery, as directed by your surgeon. - Stop Aspirin 7 days before surgery, as directed by your surgeon. - Stop ALL herbal and dietary supplements 7 days before surgery. - You may take Tylenol (Acetaminophen) or any of your pain medications that do not contain aspirin or NSAIDS as needed. Important Reminders: - Candy, mints, and tobacco products are NOT permitted the morning of surgery. - Hearing aids, dentures and glasses may be worn the morning of surgery. - NO jewelry, body piercings, makeup, hairpins or contacts are to be worn the day of surgery. If you develop symptoms such as a fever, cold, or flu, or have other changes to your health within TWO DAYS of scheduled surgery or the morning of surgery, please contact the surgery center above. Personal Belongings: -Please have photo ID and insurance cards. -If you do not have a copy of advance directives on file with us, please bring a copy with you on the day of surgery. - Leave ALL valuables and money at home or with family members. - Please bring high-quality footwear, such as sneakers, to the hospital for ambulating post-surgery. For Outpatient Procedures: - YOU MUST HAVE A RESPONSIBLE MOLDED RUBBER GOODS CUTTER TAKE YOU HOME. A TRAFFIC REPRESENTATIVE OR DISTRICT REPRESENTATIVE CANNOT BE MADE A RESPONSIBLE MOLDED RUBBER GOODS CUTTER. - We recommend that a responsible person stays with you overnight to take care of you. - You cannot stay in a hotel alone after outpatient surgery. You will not be permitted to have your surgery, if you do not have someone to take care of you. Arrival Time for Surgery: - The Surgery Center or hospital where you are having surgery will call the afternoon before surgery (or Saturday for Saturday surgery) with a scheduled arrival time. - If you have not heard by 4 pm, please contact the surgery center above. Please be aware that emergency situations arise, which may delay or change your surgical time. If this happens, we will notify you as soon as possible and regret any inconvenience. Yolanda Seo PA-C documented in this encounter [facility] 05-04-2024 History and physical note Images from the original note were not included. PREANESTHESIA CONSULT CLINIC TELEHEALTH VISIT Patient has been identified by name and date of : Yes This is a virtual visit using [employer] Video Visit. It require patient-provider interaction for the medical decision making as documented below. Reason for contact: PACC visit Accompanied by: Self Scheduled Surgery: Procedure(s) (LRB): REMOVAL IMPLANT BREAST (Left) CAPSULECTOMY BREAST IMPLANT COMPLETE INCLD REMOVAL OF ALL INTRACAPSULAR CONTENTS (Left) MASTECTOMY SIMPLE (Left) I have communicated my name and active licensure. The patient's identity and physical location were verified at the time of this visit. Either the patient or their legal traffic representative has been informed of the risks and benefits of -- and alternatives to -- treatment through a remote evaluation and consents to proceed with the evaluation remotely. ASSESSMENT: 1. Preop examination Scheduled for above procedure 2. Viral URI with cough Onset of symptoms 04/25 with nasal congestion, cough and fatigue. She took home COVID-19 test that was negative and tested negative for influenza in express care. Chest x-ray was negative for pneumonia. She reports that symptoms are improving. She still has an AM cough of green sputum, but has noticed steady improvement of symptoms. She we will keep me updated when symptoms resolve. 3. Primary hypertension Patient is maintained on losartan. Patient mentions that BP readings have been less controlled at home with the losartan than they were with lisinopril. Her most recent BP reading in [facility] was 126/80 on 1/21. Patient questions the validity of this reading. She states she has gotten readings such as 140/110 at home. Patient will check home BP readings and keep me updated. Encouraged patient to reach out to PCP and/or manager of planning if the readings are consistently elevated. She plans to do this 4. Chemotherapy-induced cardiomyopathy (HCC) Patient follows with cardiology due to borderline abnormal global myocardial strain pattern. She is on losartan daily. Patient is very active and asymptomatic. She denies CP, SOB, orthopnea, edema, syncope. Her most recent EF on echocardiogram 08/27/2023 was 59%. [employer] note reviewed from 10/09/2023 mentions recommendations for BP optimization. Will work to ensure BP is addressed (if needed) preop Cardiology note Dr. Peace (scanned) 10/09/2023 5. Gastroesophageal reflux disease, unspecified whether esophagitis present On Protonix. Patient reports symptoms are controlled on medication. Stable 6. Primary biliary cirrhosis (HCC) Maintained on ursodiol. Patient denies symptoms and is feeling well. 7. Malignant neoplasm of lower-outer quadrant of left breast of female, estrogen receptor positive (HCC) Scheduled for above procedure. Patient follows with Dr. Carrasco. Patient is maintained on Aromasin and Afinitor. Will discuss preoperative recommendations with Dr. Carrasco 8. Type 2 diabetes mellitus without complication, with long-term current use of insulin (HCC) On Lantus insulin every morning. Patient reports that home BS run around 150 in the morning and around 1 60-1 80 in the evening. Her most recent hemoglobin A1c was 7.2% on 03/18/2024 9. Anemia, unspecified type Mild anemia noted on most recent labs. Patient had updated CBC ordered by oncologist done today that showed resolution of anemia. 10. Anxiety Takes Ativan as needed at at bedtime. Patient reports that she tends to take 2 each night to help with sleep METS: Walk indoors, such as around the house (1.75 METs) Do light work around the house, such as dusting or washing dishes (2.70 METs) Take care of self; that is eating, dressing, bathing, using the toilet (2.75 METs) Walk a block or two on level ground (2.75 METs) Do moderate work around the house such as vacuuming, sweeping floors, or carrying in groceries (3.50 METs) Do yardwork, such as raking leaves, weeding,or pushing a power mower (4.50 METs) Climb a flight of stairs or walk up a hill (5.50 METs) Participate in strenuous sport, such as swimming, singles tennis, football, basketball, or skiing (7.50 METs) Do heavy work around the house, such as scrubbing floors, lifting or moving heavy furniture (8.00 METs) Patient denies any chest pain or undue shortness of breath with the above physical activity. Lots of walking, yoga a couple times per week, trampoline exercise for 20-23 minutes Denies edema, orthopnea, syncope ANESTHESIA FINDINGS: Intubation History: No history of difficult intubation Significant Anesthesia Considerations: Difficult IV/Vein Access: left arm tends to be difficult , but right arm is ok Airway Exam: General: Normal appearance Mallampati Score is CLASS II ULBT: Class I - Lower incisors can bite the upper lip above the renzo line Neck: Normal appearance and function Mouth: Normal tongue size and Mouth opening greater than 2 finger breaths Dentition: upper right molar and lower left molar missing, crowns Airway History: No abnormal airway history STOP BANG Score: Criteria: Snoring Age over 50 (64 year old) HTN Score = 3 Subjective CHIEF COMPLAINT: Patient presents with: Pre-Op Visit HPI: This is a 64 year old female who presents with left breast cancer s/p mastectomy, reconstruction, chemotherapy and radiation in 2018. There are abnormalities on posterior breast prosthesis and anterior left breast. She is being treated with Afinitor and Aromasin. She reports the left breast implant is hard and tender. She was diagnosed with malignant neoplasm of lower-outer quadrant of left breast of female. She elects to proceed with above procedure. 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) Axillary Pain, Left Musculoskeletal Chest Pain Examination of Participant in Clinical Trial Hypertension History of Radiation Therapy Total Knee Replacement Status, Left Primary Localized Osteoarthritis of Right Hip Status Post Right Hip Replacement Lumbar Degenerative Disc Disease Carcinoma of Left Breast Metastatic to Skin (Hcc) Class 1 Obesity Due to Excess Calories With Serious Comorbidity and Body Mass Index (Bmi) of 32.0 to 32.9 in Adult Metastasis to Mediastinal Lymph Node (Hcc) Functional Diarrhea Dehydration Lymphedema of Left Arm Gastroesophageal Reflux Disease Type 2 Diabetes Mellitus Without Complication, With Long-Term Current Use of Insulin (Hcc) PAST MEDICAL HISTORY Diagnosis Date Breast CA (HCC) 09/2017 Breast cyst, left 2007 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) 08/01/2022 Dehydration 10/30/2022 Functional diarrhea 09/20/2022 HTN (hypertension) Malignant neoplasm of left breast in female, estrogen receptor positive (HCC) 08/01/2022 Primary biliary cirrhosis (HCC) followed by Dr. Husam Hart in [place] PAST SURGICAL HISTORY Procedure Laterality Date ARTHRP ACETBLR/PROX FEM PROSTC AGRFT/ALGRFT Right 03/20/2019 Hip replacement, total ARTHRP KNE CONDYLE&PLATU MEDIAL&LAT COMPARTMENTS Left 02/2016 BIOPSY BREAST OPEN INCISIONAL Left 2007 [facility] benign pathology per patient BREAST RECONSTRUCTION Left 2019 fat graft/implant exchange DELIVERY ONLY 1996,1993 , low transverse MASTECTOMY HX Left 2017 AND with immediate reconstruction PAST SURGICAL HISTORY OF 2022 bronchoscopy FAMILY HISTORY Problem Relation Age of Onset Diabetes Mother Heart disease Mother Diabetes Father Hypertension Sister Hypertension Brother twin No Known Problems Son No Known Problems Son Hearing Loss Maternal Grandmother Heart disease Maternal Grandmother other (Lung Cancer) Maternal Grandfather smoker Diabetes Paternal Grandmother other (Lung Cancer) Paternal Grandfather smoker Anesthesia Problems No Family History Social History Tobacco Use Smoking status: Never Smokeless tobacco: Never Vaping Use Vaping status: Never Used Substance Use Topics Alcohol use: Yes Comment: 2 drinks per month Drug use: No ALLERGIES Allergen Reactions Amoxicillin Rash rash arms trunk neck face, itching Chills MEDICATIONS: Current Outpatient Medications Medication Sig LORazepam (ATIVAN) 0.5 mg Take 1 tablet by mouth three times a day as needed for up to 90 days. insulin glargine (LANTUS SOLOSTAR U-100 INSULIN) 100 unit/mL (3 mL) Inject 18 Units subcutaneously every morning. losartan (COZAAR) 50 mg tablet Take 1 tablet by mouth every afternoon. ursodiol (LEENA) 250 mg tablet Take 250 mg by mouth two times a day. everolimus, antineoplastic, (AFINITOR) 10 mg tablet TAKE 1 TABLET ONCE DAILY exemestane (AROMASIN) 25 mg tablet TAKE ONE TABLET BY MOUTH DAILY AFTER A MEAL diphenhydrAMINE-Acetaminophen (TYLENOL PM EXTRA STRENGTH) 25-500 mg tab Take 1 tablet by mouth at bedtime as needed. aspirin, enteric coated (ASPIRIN, ENTERIC COATED) 81 mg EC tablet Take 81 mg by mouth once daily. pantoprazole DR (PROTONIX) 40 mg tablet Take 40 mg by mouth daily before breakfast. benzonatate (TESSALON PERLE) 100 mg capsule Take 1 capsule by mouth three times a day as needed for cough. DROPLET PEN NEEDLE 31 gauge x 3/16 1 Each two times a day. Sodium Fluoride, Dental Rinse, 0.2 % SWISH 10 ML BY MOUTH THEN SPIT ONCE WEEKLY AquacueTOUCH ULTRA PLUS TEST strp 1 Each two times a day. E11.65; No insulin losartan (COZAAR) 25 mg tablet take 1 tablet by mouth once daily (Patient not taking: Reported on 03/18/2024) Lancets Use with blood glucose test two times a day. Insulin Dep? No blood sugar diagnostic (BLOOD GLUCOSE TEST) test strip Use with blood glucose test two times a day. Insulin Dep? No ascorbic acid, vitamin C, (VITAMIN C) 500 mg tablet Take 500 mg by mouth once daily. alpha tocopheryl acetate (VITAMIN E) 400 unit capsule Take 400 Units by mouth once daily. cyanocobalamin (VITAMIN B-12) 1,000 mcg tab Take 500 mcg by mouth once daily. VITAMIN D 50,000 unit capsule 1 capsule one time a week. CALCIUM CARBONATE (CALCIUM 500 ORAL) Take 1 tablet by mouth once daily. No current facility-administered medications for this visit. COVID-19 Immunization Status Overdue - Covid-19 Vaccine () Overdue since 12/08/2023 03/22/2021 Imm Admin: COVID-19 original vaccine, full dose, monovalent (MODERNA) 07/13/2020 Imm Admin: COVID-19 original vaccine, full dose, monovalent (MODERNA) 06/15/2020 Imm Admin: COVID-19 original vaccine, full dose, monovalent (MODERNA) Only the first 3 history entries have been loaded, but more history exists. Had COVID-19 ~2021. Denies complications or hospitalization. REVIEW OF SYSTEMS: Pain Assessment: General: No weight loss, malaise or fevers. 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 No neurological symptoms or problems. Respiratory: Positive for URI - onset of symptoms 04/25 - nasal congestion, productive cough and fatigue. COVID-19 and flu testing negative. No fever. 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 : N/A, No LMP recorded. Patient is postmenopausal. Endocrine: Diabetes Mellitus on insulin Denies thyroid disease/symptoms Denies oral steroids in the last 30 days Hematology: Chronic anti-coagulation / platelet meds (Aspirin) History of anemia Oncology: left breast cancer - see HPI Psych: Anxiety - takes Ativan at hs for anxiety/sleep Musculoskeletal: Negative for joint pain or swelling, back pain or muscle pain. Skin: Negative for lesions, rash and itching. Objective PHYSICAL EXAM: Pulse 82[fitbit[ Ht 5' 5.5[patient reported[ (1.66m) Wt 165 lb (74.8kg) BMI 27.03 kg/(m^2). VIDEO EXAM: (if completed, exam performed via video enabled technology) GENERAL: alert and appropriate, in no distress, well-hydrated, well nourished, and happy, smiling, interactive HEAD: normocephalic, no abnormality or lesion noted EYES: no injection NOSE: external nose normal without rhinorrhea NECK: full ROM RESPIRATORY: breathing non-labored and no grunting/flaring/retractions CHEST: equal chest rise with normal respiratory effort HEART: Patient confirmed pulse via fitbit. HR 82 BPM. No cyanosis ABDOMEN: soft and non-tender NEUROLOGIC: no cerebral deficits noted Diagnostic tests reviewed for today's visit: Lab Value Units Date High Low HB 12.3 g/dL 05/04/2024 15.5 11.5 HCT 37.3 % 05/04/2024 46.0 36.0 WBC 6.68 k/uL 05/04/2024 11.00 3.70 PLT 259 k/uL 05/04/2024 400 150 NA 138 mmol/L 04/10/2024 144 136 K 3.5 mmol/L 04/10/2024 5.1 3.7 GLUC 183 mg/dL 04/10/2024 99 74 BUN 25 mg/dL 04/10/2024 21 7 CREAT 0.91 mg/dL 04/10/2024 0.96 0.58 PTSEC No results within date range. INR No results within date range. APTT No results within date range. ALT 12 U/L 04/10/2024 38 7 AST 18 U/L 04/10/2024 35 13 TBILI 0.3 mg/dL 04/10/2024 1.3 0.2 TSH No results within date range. Hemoglobin A1C (%) Date Value 03/11/2023 6.1 10/07/2018 5.6 05/20/2018 5.7 Hemoglobin A1C (POCT) (%) Date Value 03/18/2024 7.2 07/16/2023 9.1 02/19/2022 5.9 EKG 12/17/2022 Normal sinus rhythm Echocardiogram 08/27/2023 CONCLUSIONS: - Technically difficult exam due to breast augmentation. - Exam indication: Baseline and serial evaluation in a patient undergoing therapy with cardiotoxic agents - The left ventricle is normal in size. Left ventricular systolic function is normal. EF = 59 5% (2D biplane) Grade I left ventricular diastolic dysfunction. - Global LV myocardial strain is borderline abnormal. - The right ventricle is normal in size. Right ventricular systolic function is normal. - Estimated right ventricular systolic pressure is 36 mmHg consistent with mild pulmonary hypertension. -Ascending aorta measures 3.5cm. - Exam was compared with the prior CC echocardiographic exam performed on 05/26/2018. Prior RVSP was 39mmHg. Prior EF was 66%. : This patient is optimally prepared for surgery pending home BP readings (?may need optimization), clarification of Afinitor instructions, resolution of URI. CONSULTS: Patient does not require consults for optimization at this time. - may need BP optimization. Oncology office notes Dr. 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 -KPS is 100%. -PET scan indicated disease left chest wall and mediastinal lymph nodes. -MRI brain negative. -Biopsy-proven disease recurrence left chest wall inferior and posterior to implant. -ER positive (99% strong staining intensity), SC positive (2% with strong staining intensity), HER2 2+; nonamplified by FISH testing. 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 -MRI Breast 03/28/2023 demonstrated PD and therapy was rotated to Faslodex and Afinitor. Oncology at [facility] recommended exemestane with Afinitor. -Symptomatically tolerating well. -Awaiting radiology report on PET. Reviewed images. no obvious new disease. Plan: -Continue exemestane and everolimus. -Follow up with endocrinology for management of diabetes. -Resume every 6 month bisphosphonate therapy. -PET in about 3-4 months pending final results of PET 04/06/2024. -Advised Aquaphor and light Band-Aid to the right breast skin lesion. Hopefully can be excised with upcoming surgery. (I42.7, T45.1X5A) Chemotherapy-induced cardiomyopathy (HCC) Assessment: -Earlier in her clinical course, patient had otherwise unexplained persistent tachycardia. Echo showed normal EF but I had reviewed with cardiology--there was a 10 percent change in the strain pattern suggestive of early cardiomyopathy. -I again discussed with her the importance of blood pressure control. Encouraged her to get a home blood pressure cuff and monitor blood pressures to share with her manager of planning and PCP. Plan: -Continue Cozaar and follow-up with PCP for management of hypertension. (M79.89) Swelling of limb Assessment: -Has history of left-sided lymphedema. -New posterior medial left upper arm pain. Plan: -Ultrasound arm to rule out DVT. If negative, referral back to PT for fitting for compression sleeve with glove/gauntlet. Portions of this documentation were copied and pasted from my previous office visit note dated 01/06/2024 in order to provide a cohesive continuity of the history. The note has been reviewed and edited and updated as necessary. I spent a total of 25 minutes on the date of the service which included preparing to see the patient, [id number] patient care, completing clinical documentation, obtaining and/or reviewing separately obtained history, performing a medically appropriate examination, counseling and educating the patient/family/caregiver, communicating with other HCPs (not separately reported), and communicating results to the patient/family/caregiver. Serena Carrasco, DO The Following Tests/Procedures Have Been Initiated: CBC per oncologist. Planned Anesthetic: Per anesthesia choice Instructions Given to Patient: Patient given verbal instructions and voices comprehension and compliance. Copy sent electronically via My Chart, email, or mobile device. This is a virtual visit. It required patient-provider interaction for the medical decision making as documented above. SIGNATURE: Yolanda Seo PA-C PATIENT NAME: Pat Sorto DATE: 05/04/2024 TIME: 11:10 AM PAGER/CONTACT #: [facility] 05-04-2024 History and physical note Images from the original note were not included. PREANESTHESIA CONSULT CLINIC TELEHEALTH VISIT Patient has been identified by name and date of : Yes This is a virtual visit using [employer] Video Visit. It require patient-provider interaction for the medical decision making as documented below. Reason for contact: PACC visit Accompanied by: Self Scheduled Surgery: Procedure(s) (LRB): REMOVAL IMPLANT BREAST (Left) CAPSULECTOMY BREAST IMPLANT COMPLETE INCLD REMOVAL OF ALL INTRACAPSULAR CONTENTS (Left) MASTECTOMY SIMPLE (Left) I have communicated my name and active licensure. The patient's identity and physical location were verified at the time of this visit. Either the patient or their legal traffic representative has been informed of the risks and benefits of -- and alternatives to -- treatment through a remote evaluation and consents to proceed with the evaluation remotely. ASSESSMENT: 1. Preop examination Scheduled for above procedure 2. Viral URI with cough Onset of symptoms 04/25 with nasal congestion, cough and fatigue. She took home COVID-19 test that was negative and tested negative for influenza in express care. Chest x-ray was negative for pneumonia. She reports that symptoms are improving. She still has an AM cough of green sputum, but has noticed steady improvement of symptoms. She we will keep me updated when symptoms resolve. 3. Primary hypertension Patient is maintained on losartan. Patient mentions that BP readings have been less controlled at home with the losartan than they were with lisinopril. Her most recent BP reading in [facility] was 126/80 on 04/28. Patient questions the validity of this reading. She states she has gotten readings such as 140/110 at home. Patient will check home BP readings and keep me updated. Encouraged patient to reach out to PCP and/or manager of planning if the readings are consistently elevated. She plans to do this 4. Chemotherapy-induced cardiomyopathy (HCC) Patient follows with cardiology due to borderline abnormal global myocardial strain pattern. She is on losartan daily. Patient is very active and asymptomatic. She denies CP, SOB, orthopnea, edema, syncope. Her most recent EF on echocardiogram 08/27/2023 was 59%. [employer] note reviewed from 10/09/2023 mentions recommendations for BP optimization. Will work to ensure BP is addressed (if needed) preop Cardiology note Dr. Peace (scanned) 10/09/2023 5. Gastroesophageal reflux disease, unspecified whether esophagitis present On Protonix. Patient reports symptoms are controlled on medication. Stable 6. Primary biliary cirrhosis (HCC) Maintained on ursodiol. Patient denies symptoms and is feeling well. 7. Malignant neoplasm of lower-outer quadrant of left breast of female, estrogen receptor positive (HCC) Scheduled for above procedure. Patient follows with Dr. Carrasco. Patient is maintained on Aromasin and Afinitor. Will discuss preoperative recommendations with Dr. Carrasco 8. Type 2 diabetes mellitus without complication, with long-term current use of insulin (HCC) On Lantus insulin every morning. Patient reports that home BS run around 150 in the morning and around 1 60-1 80 in the evening. Her most recent hemoglobin A1c was 7.2% on 03/18/2024 9. Anemia, unspecified type Mild anemia noted on most recent labs. Patient had updated CBC ordered by oncologist done today that showed resolution of anemia. 10. Anxiety Takes Ativan as needed at at bedtime. Patient reports that she tends to take 2 each night to help with sleep METS: Walk indoors, such as around the house (1.75 METs) Do light work around the house, such as dusting or washing dishes (2.70 METs) Take care of self; that is eating, dressing, bathing, using the toilet (2.75 METs) Walk a block or two on level ground (2.75 METs) Do moderate work around the house such as vacuuming, sweeping floors, or carrying in groceries (3.50 METs) Do yardwork, such as raking leaves, weeding,or pushing a power mower (4.50 METs) Climb a flight of stairs or walk up a hill (5.50 METs) Participate in strenuous sport, such as swimming, singles tennis, football, basketball, or skiing (7.50 METs) Do heavy work around the house, such as scrubbing floors, lifting or moving heavy furniture (8.00 METs) Patient denies any chest pain or undue shortness of breath with the above physical activity. Lots of walking, yoga a couple times per week, trampoline exercise for 20-23 minutes Denies edema, orthopnea, syncope ANESTHESIA FINDINGS: Intubation History: No history of difficult intubation Significant Anesthesia Considerations: Difficult IV/Vein Access: left arm tends to be difficult , but right arm is ok Airway Exam: General: Normal appearance Mallampati Score is CLASS II ULBT: Class I - Lower incisors can bite the upper lip above the renzo line Neck: Normal appearance and function Mouth: Normal tongue size and Mouth opening greater than 2 finger breaths Dentition: upper right molar and lower left molar missing, crowns Airway History: No abnormal airway history STOP BANG Score: Criteria: Snoring Age over 50 (64 year old) HTN Score = 3 Subjective CHIEF COMPLAINT: Patient presents with: Pre-Op Visit HPI: This is a 64 year old female who presents with left breast cancer s/p mastectomy, reconstruction, chemotherapy and radiation in 2018. There are abnormalities on posterior breast prosthesis and anterior left breast. She is being treated with Afinitor and Aromasin. She reports the left breast implant is hard and tender. She was diagnosed with malignant neoplasm of lower-outer quadrant of left breast of female. She elects to proceed with above procedure. 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) Axillary Pain, Left Musculoskeletal Chest Pain Examination of Participant in Clinical Trial Hypertension History of Radiation Therapy Total Knee Replacement Status, Left Primary Localized Osteoarthritis of Right Hip Status Post Right Hip Replacement Lumbar Degenerative Disc Disease Carcinoma of Left Breast Metastatic to Skin (Hcc) Class 1 Obesity Due to Excess Calories With Serious Comorbidity and Body Mass Index (Bmi) of 32.0 to 32.9 in Adult Metastasis to Mediastinal Lymph Node (Hcc) Functional Diarrhea Dehydration Lymphedema of Left Arm Gastroesophageal Reflux Disease Type 2 Diabetes Mellitus Without Complication, With Long-Term Current Use of Insulin (Hcc) PAST MEDICAL HISTORY Diagnosis Date Breast CA (HCC) 09/2017 Breast cyst, left 2007 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) 08/01/2022 Dehydration 10/30/2022 Functional diarrhea 09/20/2022 HTN (hypertension) Malignant neoplasm of left breast in female, estrogen receptor positive (HCC) 08/01/2022 Primary biliary cirrhosis (HCC) followed by Dr. Husam Hart in [place] PAST SURGICAL HISTORY Procedure Laterality Date ARTHRP ACETBLR/PROX FEM PROSTC AGRFT/ALGRFT Right 03/20/2019 Hip replacement, total ARTHRP KNE CONDYLE&PLATU MEDIAL&LAT COMPARTMENTS Left 02/2016 BIOPSY BREAST OPEN INCISIONAL Left 2007 [facility] benign pathology per patient BREAST RECONSTRUCTION Left 2018 fat graft/implant exchange DELIVERY ONLY 1996,1993 , low transverse MASTECTOMY HX Left 2018 AND with immediate reconstruction PAST SURGICAL HISTORY OF 2022 bronchoscopy FAMILY HISTORY Problem Relation Age of Onset Diabetes Mother Heart disease Mother Diabetes Father Hypertension Sister Hypertension Brother twin No Known Problems Son No Known Problems Son Hearing Loss Maternal Grandmother Heart disease Maternal Grandmother other (Lung Cancer) Maternal Grandfather smoker Diabetes Paternal Grandmother other (Lung Cancer) Paternal Grandfather smoker Anesthesia Problems No Family History Social History Tobacco Use Smoking status: Never Smokeless tobacco: Never Vaping Use Vaping status: Never Used Substance Use Topics Alcohol use: Yes Comment: 2 drinks per month Drug use: No ALLERGIES Allergen Reactions Amoxicillin Rash rash arms trunk neck face, itching Chills MEDICATIONS: Current Outpatient Medications Medication Sig LORazepam (ATIVAN) 0.5 mg Take 1 tablet by mouth three times a day as needed for up to 90 days. insulin glargine (LANTUS SOLOSTAR U-100 INSULIN) 100 unit/mL (3 mL) Inject 18 Units subcutaneously every morning. losartan (COZAAR) 50 mg tablet Take 1 tablet by mouth every afternoon. ursodiol (LEENA) 250 mg tablet Take 250 mg by mouth two times a day. everolimus, antineoplastic, (AFINITOR) 10 mg tablet TAKE 1 TABLET ONCE DAILY exemestane (AROMASIN) 25 mg tablet TAKE ONE TABLET BY MOUTH DAILY AFTER A MEAL diphenhydrAMINE-Acetaminophen (TYLENOL PM EXTRA STRENGTH) 25-500 mg tab Take 1 tablet by mouth at bedtime as needed. aspirin, enteric coated (ASPIRIN, ENTERIC COATED) 81 mg EC tablet Take 81 mg by mouth once daily. pantoprazole DR (PROTONIX) 40 mg tablet Take 40 mg by mouth daily before breakfast. benzonatate (TESSALON PERLE) 100 mg capsule Take 1 capsule by mouth three times a day as needed for cough. DROPLET PEN NEEDLE 31 gauge x 3/16 1 Each two times a day. Sodium Fluoride, Dental Rinse, 0.2 % SWISH 10 ML BY MOUTH THEN SPIT ONCE WEEKLY ONETOUCH ULTRA PLUS TEST strp 1 Each two times a day. E11.65; No insulin losartan (COZAAR) 25 mg tablet take 1 tablet by mouth once daily (Patient not taking: Reported on 03/18/2024) Lancets Use with blood glucose test two times a day. Insulin Dep? No blood sugar diagnostic (BLOOD GLUCOSE TEST) test strip Use with blood glucose test two times a day. Insulin Dep? No ascorbic acid, vitamin C, (VITAMIN C) 500 mg tablet Take 500 mg by mouth once daily. alpha tocopheryl acetate (VITAMIN E) 400 unit capsule Take 400 Units by mouth once daily. cyanocobalamin (VITAMIN B-12) 1,000 mcg tab Take 500 mcg by mouth once daily. VITAMIN D 50,000 unit capsule 1 capsule one time a week. CALCIUM CARBONATE (CALCIUM 500 ORAL) Take 1 tablet by mouth once daily. No current facility-administered medications for this visit. COVID-19 Immunization Status Overdue - Covid-19 Vaccine ( season) Overdue since 12/08/2023 03/22/2021 Imm Admin: COVID-19 original vaccine, full dose, monovalent (MODERNA) 07/13/2020 Imm Admin: COVID-19 original vaccine, full dose, monovalent (MODERNA) 06/15/2020 Imm Admin: COVID-19 original vaccine, full dose, monovalent (MODERNA) Only the first 3 history entries have been loaded, but more history exists. Had COVID-19 ~2021. Denies complications or hospitalization. REVIEW OF SYSTEMS: Pain Assessment: General: No weight loss, malaise or fevers. 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 No neurological symptoms or problems. Respiratory: Positive for URI - onset of symptoms 04/25 - nasal congestion, productive cough and fatigue. COVID-19 and flu testing negative. No fever. 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 : N/A, No LMP recorded. Patient is postmenopausal. Endocrine: Diabetes Mellitus on insulin Denies thyroid disease/symptoms Denies oral steroids in the last 30 days Hematology: Chronic anti-coagulation / platelet meds (Aspirin) History of anemia Oncology: left breast cancer - see HPI Psych: Anxiety - takes Ativan at hs for anxiety/sleep Musculoskeletal: Negative for joint pain or swelling, back pain or muscle pain. Skin: Negative for lesions, rash and itching. Objective PHYSICAL EXAM: Pulse 82[fitbit[ Ht 5' 5.5[patient reported[ (1.66m) Wt 165 lb (74.8kg) BMI 27.03 kg/(m^2). VIDEO EXAM: (if completed, exam performed via video enabled technology) GENERAL: alert and appropriate, in no distress, well-hydrated, well nourished, and happy, smiling, interactive HEAD: normocephalic, no abnormality or lesion noted EYES: no injection NOSE: external nose normal without rhinorrhea NECK: full ROM RESPIRATORY: breathing non-labored and no grunting/flaring/retractions CHEST: equal chest rise with normal respiratory effort HEART: Patient confirmed pulse via fitbit. HR 82 BPM. No cyanosis ABDOMEN: soft and non-tender NEUROLOGIC: no cerebral deficits noted Diagnostic tests reviewed for today's visit: Lab Value Units Date High Low HB 12.3 g/dL 05/04/2024 15.5 11.5 HCT 37.3 % 05/04/2024 46.0 36.0 WBC 6.68 k/uL 05/04/2024 11.00 3.70 PLT 259 k/uL 05/04/2024 400 150 NA 138 mmol/L 04/10/2024 144 136 K 3.5 mmol/L 04/10/2024 5.1 3.7 GLUC 183 mg/dL 04/10/2024 99 74 BUN 25 mg/dL 04/10/2024 21 7 CREAT 0.91 mg/dL 04/10/2024 0.96 0.58 PTSEC No results within date range. INR No results within date range. APTT No results within date range. ALT 12 U/L 04/10/2024 38 7 AST 18 U/L 04/10/2024 35 13 TBILI 0.3 mg/dL 04/10/2024 1.3 0.2 TSH No results within date range. Hemoglobin A1C (%) Date Value 03/11/2023 6.1 10/07/2018 5.6 05/20/2018 5.7 Hemoglobin A1C (POCT) (%) Date Value 03/18/2024 7.2 07/16/2023 9.1 02/19/2022 5.9 EKG 12/17/2022 Normal sinus rhythm Echocardiogram 08/27/2023 CONCLUSIONS: - Technically difficult exam due to breast augmentation. - Exam indication: Baseline and serial evaluation in a patient undergoing therapy with cardiotoxic agents - The left ventricle is normal in size. Left ventricular systolic function is normal. EF = 59 5% (2D biplane) Grade I left ventricular diastolic dysfunction. - Global LV myocardial strain is borderline abnormal. - The right ventricle is normal in size. Right ventricular systolic function is normal. - Estimated right ventricular systolic pressure is 36 mmHg consistent with mild pulmonary hypertension. -Ascending aorta measures 3.5cm. - Exam was compared with the prior CC echocardiographic exam performed on 05/26/2018. Prior RVSP was 39mmHg. Prior EF was 66%. : This patient is optimally prepared for surgery pending home BP readings (?may need optimization), clarification of Afinitor instructions, resolution of URI. CONSULTS: Patient does not require consults for optimization at this time. - may need BP optimization. Oncology office notes Dr. 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 -KPS is 100%. -PET scan indicated disease left chest wall and mediastinal lymph nodes. -MRI brain negative. -Biopsy-proven disease recurrence left chest wall inferior and posterior to implant. -ER positive (99% strong staining intensity), SC positive (2% with strong staining intensity), HER2 2+; nonamplified by FISH testing. 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 -MRI Breast 03/28/2023 demonstrated PD and therapy was rotated to Faslodex and Afinitor. Oncology at [facility] recommended exemestane with Afinitor. -Symptomatically tolerating well. -Awaiting radiology report on PET. Reviewed images. no obvious new disease. Plan: -Continue exemestane and everolimus. -Follow up with endocrinology for management of diabetes. -Resume every 6 month bisphosphonate therapy. -PET in about 3-4 months pending final results of PET 04/06/2024. -Advised Aquaphor and light Band-Aid to the right breast skin lesion. Hopefully can be excised with upcoming surgery. (I42.7, T45.1X5A) Chemotherapy-induced cardiomyopathy (HCC) Assessment: -Earlier in her clinical course, patient had otherwise unexplained persistent tachycardia. Echo showed normal EF but I had reviewed with cardiology--there was a 10 percent change in the strain pattern suggestive of early cardiomyopathy. -I again discussed with her the importance of blood pressure control. Encouraged her to get a home blood pressure cuff and monitor blood pressures to share with her manager of planning and PCP. Plan: -Continue Cozaar and follow-up with PCP for management of hypertension. (M79.89) Swelling of limb Assessment: -Has history of left-sided lymphedema. -New posterior medial left upper arm pain. Plan: -Ultrasound arm to rule out DVT. If negative, referral back to PT for fitting for compression sleeve with glove/gauntlet. Portions of this documentation were copied and pasted from my previous office visit note dated 01/06/2024 in order to provide a cohesive continuity of the history. The note has been reviewed and edited and updated as necessary. I spent a total of 25 minutes on the date of the service which included preparing to see the patient, [id number] patient care, completing clinical documentation, obtaining and/or reviewing separately obtained history, performing a medically appropriate examination, counseling and educating the patient/family/caregiver, communicating with other HCPs (not separately reported), and communicating results to the patient/family/caregiver. Serena Carrasco, DO The Following Tests/Procedures Have Been Initiated: CBC per oncologist. Planned Anesthetic: Per anesthesia choice Instructions Given to Patient: Patient given verbal instructions and voices comprehension and compliance. Copy sent electronically via My Chart, email, or mobile device. This is a virtual visit. It required patient-provider interaction for the medical decision making as documented above. SIGNATURE: Yolanda Seo PA-C PATIENT NAME: Pat Sorto DATE: 05/04/2024 TIME: 11:10 AM PAGER/CONTACT #: documented in this encounter [facility] 04-28-2024 Note Addended by: CARLA FORBES on: 04/28/2024 05:49 PM Modules accepted: Orders [facility] 04-28-2024 Miscellaneous Notes Addended by: CARLA FORBES on: 04/28/2024 05:49 PM Modules accepted: Orders documented in this encounter [facility] 04-28-2024 History of Present illness Narrative Radiology Service Progress Note PATIENT NAME: Pat Sorto DATE OF SERVICE: April 28, 2024 TIME: 3:40 PM PATIENT IDENTITY VERIFICATION COMPLETED USING TWO (2) IDENTIFIERS: Name and Date of confirmed by patient verbally. FALL SCREENING: Has the patient had 2 falls in the last year or 1 fall with injury or currently using an Ambulatory Assistive Device (Walker, Cane, Wheelchair, Crutches, etc.)? No PATIENT GENDER DATA: Assigned female at . status: : No status: NO. PATIENT RELEVANT IMPLANT DATA REVIEWED: Yes PATIENT PRESENTS WITH AN IMPLANTABLE OR ATTACHED BILLING AND INSURANCE COORDINATOR: No RADIOLOGY DEPARTMENT: General X-ray: Exam(s) Completed: Chest X-Ray PERIPHERAL IV DATA: Not applicable SIGNED BY: RT Nicolasa(R) April 28, 2024 3:40 PM documented in this encounter [facility] 04-28-2024 Note [facility] 04-28-2024 Note [facility] 04-28-2024 History of Present illness Narrative This note was created using NoteWriter. Subjective Pat Sorto is a 64 year old female. 64 year old female with PMH HTN and breast CA with mets presents for illness. Acute onset 3 days ago +nasal congestion +cough , slightly productive Denies nasal Denies ear +fatigue +watering eyes Denies SOB Denies dyspnea Denies abdominal pain Denies N/V/D Denies tobacco usage The history is provided by the patient. No assistant speech language pathologist was used. Nasal Congestion This is a new problem. The current episode started in the past 7 days. The problem is unchanged. There has been no fever. Her pain is at a severity of 4/10. The pain is moderate. Associated symptoms include chills, congestion, coughing, sinus pressure and sneezing. Pertinent negatives include no diaphoresis, ear pain, headaches, hoarse voice, neck pain, shortness of breath, sore throat or swollen glands. Past treatments include nothing. The treatment provided no relief. 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 Husam Hart in [place] PAST SURGICAL HISTORY Procedure Laterality Date ARTHRP ACETBLR/PROX FEM PROSTC AGRFT/ALGRFT Right 03/20/2019 Hip replacement, total ARTHRP KNE CONDYLE&PLATU MEDIAL&LAT COMPARTMENTS Left 02/2016 BIOPSY BREAST OPEN INCISIONAL Left 2007 [facility] benign pathology per patient BREAST RECONSTRUCTION Left 2019 fat graft/implant exchange DELIVERY ONLY 1996,1993 , low transverse MASTECTOMY HX Left 2017 AND with immediate reconstruction ALLERGIES Amoxicillin MEDICATIONS LORazepam (ATIVAN) 0.5 mg Take 1 tablet by mouth three times a day as needed for up to 90 days. DROPLET PEN NEEDLE 31 gauge x 3/16 1 Each two times a day. insulin glargine (LANTUS SOLOSTAR U-100 INSULIN) 100 unit/mL (3 mL) Inject 18 Units subcutaneously every morning. losartan (COZAAR) 50 mg tablet Take 1 tablet by mouth every afternoon. ursodiol (LEENA) 250 mg tablet Take 250 mg by mouth two times a day. everolimus, antineoplastic, (AFINITOR) 10 mg tablet TAKE 1 TABLET ONCE DAILY Sodium Fluoride, Dental Rinse, 0.2 % SWISH 10 ML BY MOUTH THEN SPIT ONCE WEEKLY exemestane (AROMASIN) 25 mg tablet TAKE ONE TABLET BY MOUTH DAILY AFTER A MEAL diphenhydrAMINE-Acetaminophen (TYLENOL PM EXTRA STRENGTH) 25-500 mg tab Take 1 tablet by mouth at bedtime as needed. AquacueTOUCH ULTRA PLUS TEST strp 1 Each two times a day. E11.65; No insulin Lancets Use with blood glucose test two times a day. Insulin Dep? No blood sugar diagnostic (BLOOD GLUCOSE TEST) test strip Use with blood glucose test two times a day. Insulin Dep? No aspirin, enteric coated (ASPIRIN, ENTERIC COATED) 81 mg EC tablet Take 81 mg by mouth once daily. pantoprazole DR (PROTONIX) 40 mg tablet Take 40 mg by mouth daily before breakfast. ascorbic acid, vitamin C, (VITAMIN C) 500 mg tablet Take 500 mg by mouth once daily. alpha tocopheryl acetate (VITAMIN E) 400 unit capsule Take 400 Units by mouth once daily. cyanocobalamin (VITAMIN B-12) 1,000 mcg tab Take 500 mcg by mouth once daily. VITAMIN D 50,000 unit capsule 1 capsule one time a week. CALCIUM CARBONATE (CALCIUM 500 ORAL) Take 1 tablet by mouth once daily. losartan (COZAAR) 25 mg tablet take 1 tablet by mouth once daily (Patient not taking: Reported on 03/18/2024) Ursodiol 500 mg tablet Take 1.5 tablets by mouth twice daily. (Patient not taking: Reported on 04/15/2024) FAMILY HISTORY Problem Relation Age of Onset Diabetes Mother Heart disease Mother Diabetes Father Hypertension Sister Hypertension Brother twin Hearing Loss Maternal Grandmother Heart disease Maternal Grandmother other (Lung Cancer) Maternal Grandfather smoker Diabetes Paternal Grandmother other (Lung Cancer) Paternal Grandfather smoker No Known Problems Son No Known Problems Son Social History Tobacco Use Smoking status: Never Smokeless tobacco: Never Vaping Use Vaping status: Never Used Substance Use Topics Alcohol use: Yes Comment: occasional Drug use: No Review of Systems Constitutional: Positive for chills. Negative for diaphoresis. HENT: Positive for congestion, rhinorrhea, sinus pressure, sinus pain and sneezing. Negative for ear pain, hoarse voice and sore throat. Eyes: Negative for pain, discharge, redness and itching. Respiratory: Positive for cough. Negative for shortness of breath. Cardiovascular: Negative for chest pain, palpitations and leg swelling. Gastrointestinal: Negative for abdominal pain, diarrhea, nausea and vomiting. Musculoskeletal: Negative for neck pain. Skin: Negative for color change, pallor, rash and wound. Allergic/Immunologic: Negative for environmental allergies, food allergies and immunocompromised state. Neurological: Negative for headaches. Hematological: Negative for adenopathy. Does not bruise/bleed easily. Psychiatric/Behavioral: Negative for agitation and behavioral problems. Objective BP 126/80 Pulse 96 Temp 37.3 C (99.2 F) Resp 16 Wt 77.3 kg (170 lb 6.7 oz) SpO2 96% BMI 28.05 kg/m Physical Exam Vitals and nursing note reviewed. Constitutional: General: She is not in acute distress. Appearance: Normal appearance. She is normal weight. She is not ill-appearing, toxic-appearing or diaphoretic. HENT: Head: Normocephalic and atraumatic. Right Ear: Ear canal and external ear normal. Left Ear: Ear canal and external ear normal. Nose: Congestion present. No rhinorrhea. Mouth/Throat: Mouth: Mucous membranes are moist. Pharynx: Posterior oropharyngeal erythema present. No oropharyngeal exudate. Eyes: General: Right eye: No discharge. Left eye: No discharge. Extraocular Movements: Extraocular movements intact. Conjunctiva/sclera: Conjunctivae normal. Pupils: Pupils are equal, round, and reactive to light. Cardiovascular: Rate and Rhythm: Normal rate and regular rhythm. Pulses: Normal pulses. Heart sounds: Normal heart sounds. No murmur heard. No friction rub. Pulmonary: Effort: Pulmonary effort is normal. No respiratory distress. Breath sounds: Normal breath sounds. No stridor. No wheezing, rhonchi or rales. Chest: Chest wall: No tenderness. Abdominal: General: Abdomen is flat. There is no distension. Palpations: Abdomen is soft. There is no mass. Tenderness: There is no abdominal tenderness. There is no right CVA tenderness, left CVA tenderness, guarding or rebound. Hernia: No hernia is present. Musculoskeletal: General: No swelling, tenderness, deformity or signs of injury. Normal range of motion. Cervical back: Normal range of motion and neck supple. No rigidity. Right lower leg: No edema. Left lower leg: No edema. Lymphadenopathy: Cervical: Cervical adenopathy present. Skin: General: Skin is warm and dry. Capillary Refill: Capillary refill takes less than 2 seconds. Coloration: Skin is not jaundiced or pale. Findings: No bruising, erythema, lesion or rash. Neurological: General: No focal deficit present. Mental Status: She is alert and oriented to person, place, and time. Cranial Nerves: No cranial nerve deficit. Sensory: No sensory deficit. Motor: No weakness. Coordination: Coordination normal. Gait: Gait normal. Psychiatric: Mood and Affect: Mood normal. Behavior: Behavior normal. Thought Content: Thought content normal. Judgment: Judgment normal. Assessment and Plan ASSESSMENT/PLAN: 1. Acute cough - ICD9: 786.2, ICD10: R05.1 (primary diagnosis) X 3 days Worsening No hemoptysis No CP - INFLUENZA A&B MOLECULAR (POC) - XR CHEST 2V FRONTAL/LAT 2. URI, acute - ICD9: 465.9, ICD10: J06.9 X 3 day No red flags POC Influenza negative - Discussed viral etiology and rationale for treatment. - Symptomatic treatment with prn analgesia - Supportive care with fluids and rest - The patient may also use OTC cough and cold meds as needed and nasal saline gtts and suction prn. - Follow up in 3-5 days if symptoms persist or sooner if worsening of symptoms Carla Forbes APRN.PLATEN GRINDER documented in this encounter [facility] 04-28-2024 Telephone encounter Note Patient calling with request for evaluation of respiratory sx's. Denies any severe symptoms such as chest pain, SOB, dizziness or weakness. No appts available this afternoon at this [facility]. Patient agreeable to come to [facility] for evaluation now, as she wishes to begin treatment now, if indicated. Susana Mix RN [facility] 04-28-2024 Miscellaneous Notes Patient calling with request for evaluation of respiratory sx's. Denies any severe symptoms such as chest pain, SOB, dizziness or weakness. No appts available this afternoon at this [facility]. Patient agreeable to come to [facility] for evaluation now, as she wishes to begin treatment now, if indicated. Susana Mix RN documented in this encounter [facility] 04-24-2024 History of Present illness Narrative Program_ID:[id number] Access Code: [email or web address] URL: [email or web address] Date: 04-24-2024 Prepared By: Bobbi Vanegas Program Notes Exercises - Supine Chest Stretch with Elbows Bent - 1 x daily - 7 x weekly - sets - 3-5 reps - Standing Single Arm Shoulder Abduction Stretch on Wall - 1 x daily - 7 x weekly - sets - 3-5 reps - Standing Single Arm Shoulder Abduction Stretch on Wall - 1 x daily - 7 x weekly - sets - 3-5 reps Images from the original note were not included. Episode Visit Count: 1 Therapist That Will Accept/Oversee The Plan Of Care: Bobbi Vanegas Start of Care Date: 04/24/24 Onset Date: 03/24/24 Plan of Care Certification Date: 04/24/24 Next Certification Due Date: 05/25/24 Patient Identified by Name and Date of : Yes REHABILITATION AND SPORTS THERAPY PHYSICAL THERAPY EVALUATION PLAN OF CARE: Assessment: Pat Sorto presents with diagnosis of lymphedema L arm, and malignant neoplasm of L breast that interferes with nothing (Previously was interfering with daily activities, but now is back to normal.) . The patient presents with impairments in edema management, tissue tenderness, and soft tissue restrictions. PROMIS (Patient-Reported Outcomes Measurement Information System) scores were reviewed and identified as a rehabilitation concern. Prognosis for therapy is Excellent due to: current objective clinical presentation, good overall health status, good support system/ coping skills . The patient will benefit from skilled therapy services to meet the goals established for this plan of care as noted below. Goals for Episode of Care: established 04/24/24 Jones in home exercise program. Patient will decrease pain rating by 2 points to meet minimal clinical important difference for numeric pain rating scale. Patient will increase active ROM of L shoulder to 170-180 deg flex, full abduction with no pain to allow pt to improve performance of ADLs and golfing without restrictions. Perform golfing, all daily and household activities with decreased report of symptoms/pain in 4 weeks. Patient / family knowledgeable re: all pertinent aspects of CDT Patient / family independent with donning / doffing compression garment and proper wearing schedule and care of garment Patient will decrease circumferential measurements by 0.5 to 1.0cm in the following areas: L UE for decreased recurrence of infection, improved mobility, improved range of motion and allow appropriate fit in compressive garment. Pt will obtain appropriate and effective compression garment(s) to promote effective self-management. Patient Goals: To get ready for upcoming surgery for best effects. To help heal and get motion back as quickly as possible. Time Frame for Goals and Treatment : 05/25/24 Planned Interventions, Frequency, and Duration: Current Frequency: 1x/week Duration: 4 weeks Total Number of Visits Planned: 4 Planned Treatment Interventions: Therapeutic exercise (17942), Manual therapy (29547), Self-retirement management (50527), Patient/Family/Caregiver Education PLAN FOR NEXT VISIT: Assess performance of and response to HEP. May initiate manual techniques for soft tissue restrictions L chest, subaxillary, lateral thorax, and/or MLD L UE. Patient demonstrates good understanding of plan of care and treatment. The above goals and plan of care were discussed and agreed upon by patient/family. SUBJECTIVE: Pt reporting her L arm acted up about 4 weeks ago. Describes a lot of swelling and pain. Bicep to wrist (tender to touch). It's a lot better now. Still a little tender, but not near as bad as it was. Denies aggravating factors or incident. Lasted about 3-4 weeks. Just now feeling better. US was negative for blood clot. Tried using compression sleeve, but her hand would swell when she wore it. Pt states she doesn't think she would wear a glove d/t how much she uses and washes her hands through the day. Discussed possibly a nighttime garment instead. Has surgery scheduled May 18 to remove the L breast prosthesis/implant. Patient Goals: To get ready for upcoming surgery for best effects. To help heal and get motion back as quickly as possible. Functional Limitations: nothing (Previously was interfering with daily activities, but now is back to normal.) Relevant History Past Relevant Medical Conditions: Hypertension (primary biliary cirrhosis) Past Relevant Surgical Conditions: Total Hip Replacement-Left, Total Knee Replacement-Left Right or Left Handed: Right Employment: Retired ([employer]) Intake Information: Prescription present Previous Treatment: (Wore the compression sleeve, but hand gets swollen when wearing it. Jumping on small trampoline with various arm movements.) Pain: Pain Pain Level: 0 Pain Location: Upper Arm - Left, Elbow - Left Description: Tenderness (mild tenderness to touch) Frequency: Intermittent (with palpation) Post Treatment Pain Post Treatment Pain Level: 0 PROMIS Scales 06/02/2019 Higher is Better Phys Func - T Score 41 (mild dysfunction) Phys Func - Percentile 18 06/02/2019 Lower is Better Pain Interference - T Score 56 (mild) Pain Interference - Percentile 27 T-scores: mean of general population = 50. 5 points is clinically meaningfully difference Percentiles provide an indication of how the patient's score ranks in relation to the general population. Higher percentile rankings indicate better function/quality of life. 50th percentile is the average of the general population and indicates half of respondents had a worse score. OBJECTIVE MEASURES WITH LEVEL OF FUNCTION: Lymphedema Presents with: Swelling, Pain, Decreased knowledge of lymphedema management Lymphedema Contributing Factors: Chemotherapy, Radiation, Lymph Node Removal Relative Contra-indications to Compression: : None Relative Contra-indications to Manual Lymph Drainage: : None Relative Contra-indications to Neck Manual Lymph Drainage: : None Previous Lymphedema Treatment: Compression Garment (Instruction in decongestive exercises) Compression Garment: L sleeve wrist to axilla Skin: Skin Comments Skin Comments:: Skin is well hydrated, soft, and malleable. Indentation is present with removal of her wratchband, but no pitting present upon palpation. Upper Extremity Circumferential Measurements R Thumb (proximal phalanx) (cm): 7 cm R Index Finger (proximal phalanx) (cm): 7 cm R Middle Finger (proximal phalanx) (cm): 6.5 cm R Ring Finger (proximal phalanx) (cm): 6 cm R Small Finger (proximal phalanx) (cm): 6 cm R DPC (cm): 20.5 cm R Distal Wrist Crease (DWC) (cm): 16 cm R 4 cm above wrist (cm): 16.5 cm R 8 cm above wrist (cm): 18.5 cm R 12 cm above wrist (cm): 23 cm R 16 cm above wrist (cm): 25.5 cm R 20 cm above wrist (cm): 25.5 cm R 24 cm above wrist (cm): 25 cm (elbow) R 28 cm above wrist (cm): 26 cm R 32 cm above wrist (cm): 28 cm R 36 cm above wrist (cm): 30 cm R 40 cm above wrist (cm): 33 cm R 44 cm above wrist (cm): 31.5 cm L Thumb (proximal phalanx) (cm): 6.5 cm L Index Finger (proximal phalanx) (cm): 6.5 cm L Middle Finger (proximal phalanx) (cm): 6.5 cm L Ring Finger (proximal phalanx) (cm): 6 cm L Small Finger (proximal phalanx) (cm): 5.5 cm L DPC (cm): 20.5 cm L Distal Wrist Crease (DWC) (cm): 17 cm L 4 cm above wrist (cm): 19.5 cm L 8 cm above wrist (cm): 21.5 cm L 12 cm above wrist (cm): 25 cm L 16 cm above wrist (cm): 27.5 cm L 20 cm above wrist (cm): 27.5 cm L 24 cm above wrist (cm): 27 cm (elbow) L 28 cm above wrist (cm): 28.5 cm L 32 cm above wrist (cm): 29 cm L 36 cm above wrist (cm): 31 cm L 40 cm above wrist (cm): 32.5 cm L 44 cm above wrist (cm): 33.5 cm Affected Arm : Left Arm Calculate Volume : Yes R Upper Extremity Volume: 2271.84 L Upper Extremity Volume: 2572.82 Difference in Volume: 300.98 Difference in % : 13.25 UE AROM R Shoulder Extension: 75 Degrees R Shoulder Flex: 170 Degrees R Shoulder ABduction: 175 Degrees R Shoulder Internal Rotation (Functional): back of hand to inferior angle of scapula R Shoulder External Rotation: 90 Degrees L Shoulder Extension: 65 Degrees L Shoulder Flex: 160 Degrees (pulling anterior upper breast) L Shoulder ABduction: 175 Degrees (tight, lateral breast, subaxillary) L Shoulder Internal Rotation (Functional): back of hand to inferior angle of scapula L Shoulder External Rotation: 82 Degrees (little pulling lateral thorax and top of shoulder) Vitals BP: (deferred d/t lymphedema precautions) Education: Education Learning Preferences: Demonstration, Explanation Barriers: None Learning/educational needs: Home exercise program, Plan of Care, Lymphedema Program Education Provided: Yes, see treatment interventions for education provided Education Provided To: Patient Education Mode/Type: Demonstration, Explanation/Discussion, Literature/Printed Materials, Performance Response to Education/Teach Back: States/Identifies, Return Demonstration TREATMENT: PT Treatment Interventions: Therapeutic Exercise, Self-Senior Care Management Evaluation Therapeutic Exercise: 1: *Pt was instructed in UE Decongestive Exercises 2: *supine butterfly stretch 5 x 30 seconds 3: *standing wall shld flex stretches 3 x 30 sec holds 4: *standing wall shld abduction stretches 3 x 30 sec holds Skilled Intervention: Patient was educated in proper exercise technique and purpose for exercises. Skilled judgment was used in selection of appropriate interventions. Provided written instruction for home exercise program to facilitate proper performance and compliance. Correct performance of therapeutic exercises was facilitated with verbal and visual cuing. Patient education as noted. Self-Senior Care Management: 1: Educated pt on options for compression garments including glove/gauntlets and night time garments. Also instructed that if sleeve is causing hand to swell, may also be d/t current garment is no longer a good fit. May assess in following sessions. Pt would likely benefit from new garment following upcoming procedure. Skilled Intervention: Educated the patient regarding recommendations and provided written instruction to facilitate compliance. Reviewed patient specific diagnosis in relation to activities of daily living/home management. Billing * Evaluation Low Complexity: 1 Unit Therapeutic Exercise Treatment Minutes: 23 Self-Care/Home Management Treatment Minutes: 15 Skilled Treatment Time Minutes (timed and untimed codes): 53 Total Session Time (minutes): 53 Session Start Time : 1104 Session Stop Time : 1157 Bobbi Vanegas PT documented in this encounter [facility] 04-24-2024 Note [facility] 04-15-2024 Note HNO ID: [id number] Author: NINI RUSSELL MA Service: ? Author Type: Humanities Department Chair Type: Progress Notes Filed: 04/15/2024 12:41 Note Text: [facility] 04-15-2024 History of Present illness Narrative Images from the original note were not included. OFFICE VISIT PROGRESS NOTE CC Pat Angelita Komara is a 64 year old who presents today for blood sugar review, DM med dose review. HPI Diagnosed with diabetes mellitus type , ~ 2023 Last endocrine OV 02/05/2024 Some elements copied from my note 02/05/2024 which have been updated where appropriate, and all reflect current medical decision making from date of this visit. HISTORY OF PRESENT ILLNESS; Pat Sorto is a 63 year old FEMALE is presenting as a new patient to me regarding DM Type 2. She was initially diagnosed with diabetes in 2023 Treated for breast malignancy with mets Has chemo induced cardiomyopathy, anemia and neuropathy Hx of primary biliary cirrhosis Reports she was not a diabetic - but fasting sugars show insulin resistance (pre diabetes for 10+ years). Patient sts that she never had any issues with her blood sugars until she started AFINITOR which ' made me a diabetic ' Has been working with PharmD, glipizide was started for patient as she previously was rx'd metformin and ozempic, both of which she did not tolerate Sts sugars are still elevated even with the max dosing of the glipizide. DIETARY HISTORY: Breakfast: egg, on egling muffin or wheat toast w water sometimes tea, sweetened Lunch soup OR turkey sandwich OR ham/cheese sandwich water and arnold hathaway ice tea 4 oz (regular pop) 4 oz Dinner Clute or Steak or Chicken OR pasta with protein on weekends pizza or fish sandwich OR salad with protein sometimes take out/usually weekends only Snacks pretzels or apple slices occ ice cream or cookie IF selecting a sweet (usually after dinner) Drinks water, tea, reg pop or arnold hathaway ice tea sweetened Exercise: walking 10k steps per day HPI 04/15/2024 Dropped 35 pounds altogether with GLP1, is no longer taking GLP1 Had some reactions with GI and rashes Using trampoline (mini) for exercise Walking 3 miles per day Last week not as active Is aromasin for breast ca Noticed increased blood sugars and blood pressure CURRENT DM MEDS LANTUS 12 units daily OZEMPIC for 7 weeks - GI issues METFORMIN noat tolerated SMBG Type of Monitor: Other Frequency of Monitorin times a day BG Values: Breakfast: Lunch: 154-183 Dinner: Bed-time: 169-230 Values over past week: Highest ; Lowest Hypoglycemia: no Diet: No specific diet regimen Exercise: none DM REVIEW OF SYSTEMS Last Eye Exam : 11/2023 Last Podiatry Exam: Cardiorespiratory: negative, denies chest pain, pressure Claudication: no Dyslipidemia: No High Blood Pressure: No CURRENT LABS Latest Ref Rng 03/18/2024 Hemoglobin A1C (POCT) 4.3 - 5.6 % 7.2 ! Legend: ! Abnormal Recent Labs 06/12/17 1529 06/27/17 1637 02/23/19 1018 03/18/19 0913 03/11/23 1144 04/04/23 0945 07/16/23 1145 08/05/23 0950 09/30/23 1044 11/11/23 0843 01/06/24 0951 03/18/24 1352 ALT -- < > 10 < > -- < > -- < > 13 9 13 -- AST -- < > 15 < > -- < > -- < > 20 17 20 -- TPROT -- < > 7.1 < > -- < > -- < > 6.5 7.0 7.1 -- ALB -- < > 4.1 < > -- < > -- < > 3.6* 3.6* 4.0 -- CA -- < > 9.5 < > -- < > -- < > 9.3 9.2 9.6 -- TBILI -- < > 0.3 < > -- < > -- < > 0.2 0.3 0.3 -- ALKPHOS -- < > 71 < > -- < > -- < > 57 74 68 -- GLUC -- < > 100* < > -- < > -- < > 119* 168* 171* -- BUN -- < > 23* < > -- < > -- < > 16 23* 21 -- CREAT -- < > 0.91 < > -- < > -- < > 0.90 1.47* 0.81 -- NA -- < > 139 < > -- < > -- < > 141 137 141 -- K -- < > 3.6* < > -- < > -- < > 3.6* 3.8 3.6* -- CHLOR -- < > 105 < > -- < > -- < > 106 101 103 -- CO2 -- < > 27 < > -- < > -- < > 26 24 26 -- ANION -- < > 7* < > -- < > -- < > 9 12 12 -- EGFROTH -- < > >60 < > -- < > -- < > 72 40* 81 -- HBA1C -- < > -- < > 6.1* -- 9.1* -- -- -- -- 7.2* B12 >2,000* -- 1,468* -- -- -- -- -- -- -- -- -- < > = values in this interval not displayed. Recent Labs 06/12/17 1529 05/20/18 0904 05/20/18 0904 10/07/18 1012 02/23/19 1018 02/19/22 0957 03/11/23 1144 07/16/23 1145 08/08/23 0845 11/11/23 0843 03/18/24 1352 TG -- 164* -- 151* -- -- -- -- 230* 250* -- CHOL -- 167 -- 167 -- -- -- -- 237* 202* -- HDL -- 41 -- 34* -- -- -- -- 35* 27* -- VLDL -- 33* -- 30* -- -- -- -- 46* 50* -- LDL -- 93 -- 103* -- -- -- -- 156* 125* -- FASTTIME -- -- -- 12 -- -- -- -- 12 -- TCHDL -- 4.07 -- 4.91 -- -- -- -- 6.77* 7.48* -- LDLHDL -- 2.27 -- 3.03* -- -- -- -- 4.46* 4.63* -- NONHDL -- 126 -- 133* -- -- -- -- 202* 175* -- HBA1C -- 5.7* < > 5.6 -- < > 6.1* 9.1* -- -- 7.2* HBA0 -- 117 -- 114 -- -- 128 -- -- -- -- B12 >2,000* -- -- -- 1,468* -- -- -- -- -- -- < > = values in this interval not displayed. 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 Husam Hart in [place] PAST SURGICAL HISTORY Procedure Laterality Date ARTHRP ACETBLR/PROX FEM PROSTC AGRFT/ALGRFT Right 03/20/2019 Hip replacement, total ARTHRP KNE CONDYLE&PLATU MEDIAL&LAT COMPARTMENTS Left 02/2016 BIOPSY BREAST OPEN INCISIONAL Left 2007 [facility] benign pathology per patient BREAST RECONSTRUCTION Left 2019 fat graft/implant exchange DELIVERY ONLY 1996,1993 , low transverse MASTECTOMY HX Left 2017 AND with immediate reconstruction FAMILY HISTORY Problem Relation Age of Onset Diabetes Mother Heart disease Mother Diabetes Father Hypertension Sister Hypertension Brother twin Hearing Loss Maternal Grandmother Heart disease Maternal Grandmother other (Lung Cancer) Maternal Grandfather smoker Diabetes Paternal Grandmother other (Lung Cancer) Paternal Grandfather smoker No Known Problems Son No Known Problems Son Social History Tobacco Use Smoking status: Never Smokeless tobacco: Never Vaping Use Vaping status: Never Used Substance Use Topics Alcohol use: Yes Comment: occasional Drug use: No Current Outpatient Medications Medication Sig losartan (COZAAR) 50 mg tablet Take 1 tablet by mouth every afternoon. ursodiol (LEENA) 250 mg tablet Take 250 mg by mouth two times a day. LORazepam (ATIVAN) 0.5 mg Take 1 tablet by mouth three times a day as needed for up to 90 days. everolimus, antineoplastic, (AFINITOR) 10 mg tablet TAKE 1 TABLET ONCE DAILY insulin glargine (LANTUS SOLOSTAR U-100 INSULIN) 100 unit/mL (3 mL) Inject 12 Units subcutaneously every morning. Sodium Fluoride, Dental Rinse, 0.2 % SWISH 10 ML BY MOUTH THEN SPIT ONCE WEEKLY Insulin Moore, Disposable, (PEN NEEDLE) 32 gauge x 5/32 Inject 1 Each subcutaneously every 24 hours. Give with each insulin administration. exemestane (AROMASIN) 25 mg tablet TAKE ONE TABLET BY MOUTH DAILY AFTER A MEAL diphenhydrAMINE-Acetaminophen (TYLENOL PM EXTRA STRENGTH) 25-500 mg tab Take 1 tablet by mouth at bedtime as needed. ONETOUCH ULTRA PLUS TEST strp 1 Each two times a day. E11.65; No insulin losartan (COZAAR) 25 mg tablet take 1 tablet by mouth once daily (Patient not taking: Reported on 03/18/2024) Lancets Use with blood glucose test two times a day. Insulin Dep? No blood sugar diagnostic (BLOOD GLUCOSE TEST) test strip Use with blood glucose test two times a day. Insulin Dep? No aspirin, enteric coated (ASPIRIN, ENTERIC COATED) 81 mg EC tablet Take 81 mg by mouth once daily. pantoprazole DR (PROTONIX) 40 mg tablet Take 40 mg by mouth daily before breakfast. ascorbic acid, vitamin C, (VITAMIN C) 500 mg tablet Take 500 mg by mouth once daily. alpha tocopheryl acetate (VITAMIN E) 400 unit capsule Take 400 Units by mouth once daily. cyanocobalamin (VITAMIN B-12) 1,000 mcg tab Take 500 mcg by mouth once daily. VITAMIN D 50,000 unit capsule 1 capsule one time a week. Ursodiol 500 mg tablet Take 1.5 tablets by mouth twice daily. CALCIUM CARBONATE (CALCIUM 500 ORAL) Take 1 tablet by mouth once daily. No current facility-administered medications for this visit. ALLERGIES Allergen Reactions Amoxicillin Rash rash arms trunk neck face, itching Chills REVIEW OF SYSTEMS - POSITIVES IN BOLD GENERAL:No weight loss, malaise or fevers HEENT:Negative for frequent or significant headaches, No changes in hearing or vision, no nose bleeds or other nasal problems NECK:Negative for lumps, goiter, pain and significant neck swelling RESPIRATORY: Negative for cough, hemoptysis, wheezing, COPD, dyspnea or shortness of breath CARDIOVASCULAR: Negative for chest pain, leg swelling, hypertension, CHF or palpitations PHYSICAL EXAMINATION: Pulse 98 Temp 36.6 C (97.8 F) (Temporal Artery) Wt 75.3 kg (166 lb) SpO2 98% BMI 27.33 kg/m BP this morning at [facility] 160/110 GENERAL: alert and appropriate, in no distress and well-hydrated, well nourished SKIN: no rash noted HEAD: normocephalic, no abnormality or lesion noted EYES: PERRL NECK: full ROM, no cervical LNs noted ACANTHOSIS: none noted EXTREMITIES: normalo NEUROLOGIC: no obvious deficit ASSESSMENT/PLAN (E11.9, Z79.4) Diabetes mellitus treated with insulin (HCC) (primary encounter diagnosis) Comment: Recommend increase LANTUS to 18 units once daily Can increase by 2 units every several days until morning waking sugars are in the 110-120 range Discussed upcoming surgery NPO status and how to adjust LANTUS for NPO status night before surgical procedure Patient will call office for any other issues or questions Recommended diet: Low carbohydrate and Low saturated fat, low simple sugar, high fiber diet Exercise minimally 150 minutes per week, increase as tolerated. Adequate hydration - 1/2 body wgt in oz of water daily, unless fluid restriction applies. I instructed the patient to monitor blood sugars 4 times per day If blood sugars are persistently high or low, to call our office. Patient to continue to follow up with her PCP and with other consultants regarding her other medical problems. Plan: COMPREHENSIVE METABOLIC PANEL, LIPID PANEL, NONFASTING, ALBUMIN/CREATININE RATIO, URINE, HEMOGLOBIN A1C Daisy Titus CNP documented in this encounter [facility] 04-15-2024 Note [facility] 04-13-2024 Telephone encounter Note Spoke to patient Discussed surgery date of Thursday 05/[address] Bingham and Dr. Marcelino which she agreed to Will see for preops the week prior Advised to stop Aromasin one week prior to surgery which pt verbalized understanding Cayla Charles PA-C April 13, 2024 2:20 PM [facility] 04-13-2024 Miscellaneous Notes Spoke to patient Discussed surgery date of Thursday 05/[address] Bingham and Dr. Marcelino which she agreed to Will see for preops the week prior Advised to stop Aromasin one week prior to surgery which pt verbalized understanding Cayla Charles PA-C April 13, 2024 2:20 PM documented in this encounter [facility] 04-13-2024 Telephone encounter Note Apurva as directed [facility] 04-13-2024 Miscellaneous Notes Apurva as directed PSS please reach out to schedule with pt. for repeat PET scan several days before I see her in 3 to 4 months. Kasie Lamb LPN It means they have took some of the tracer that was injected in the right arm. They are not cancerous. Serena Carrasco DO Pt. Contacted concerning results of PET , she questioned what this means Mild activity in the right axillary lymph nodes likely reactive. So she can have a better understanding. PET orders pended, please sign Kasie Lamb LPN Please place order Can let her know PET scan shows stable findings. Mild uptake in the previous areas posterior to the breast. No progression of cancer. We will continue current therapy. Please schedule for repeat PET scan several days before I see her in 3 to 4 months. documented in this encounter [facility] 04-13-2024 Telephone encounter Note Spoke with pt, informed of negative ultrasound .Please refer to physical therapy for lymphedema. Pt. Voiced understanding. Kasie Lamb LPN [facility] 04-13-2024 Miscellaneous Notes Spoke with pt, informed of negative ultrasound .Please refer to physical therapy for lymphedema. Pt. Voiced understanding. Kasie Lamb LPN Can let her know that ultrasound left arm was negative for blood clot. Please refer to physical therapy for lymphedema. Order filed. documented in this encounter [facility] 04-13-2024 Telephone encounter Note Can let her know that ultrasound left arm was negative for blood clot. Please refer to physical therapy for lymphedema. Order filed. [facility] 04-13-2024 Telephone encounter Note PSS please reach out to schedule with pt. for repeat PET scan several days before I see her in 3 to 4 months. Kasie Lamb LPN [facility] 04-13-2024 Telephone encounter Note It means they have took some of the tracer that was injected in the right arm. They are not cancerous. Serena Carrasco DO [facility] 04-13-2024 History of Present illness Narrative Radiology Service Progress Note PATIENT NAME: Pat Sorto DATE OF SERVICE: April 13, 2024 TIME: 10:58 AM PATIENT IDENTITY VERIFICATION COMPLETED USING TWO (2) IDENTIFIERS: Name and Date of confirmed by patient verbally. FALL SCREENING: Has the patient had 2 falls in the last year or 1 fall with injury or currently using an Ambulatory Assistive Device (Walker, Cane, Wheelchair, Crutches, etc.)? No PATIENT GENDER DATA: Female. status: : No status: NO. PATIENT RELEVANT IMPLANT DATA REVIEWED: Yes PATIENT PRESENTS WITH AN IMPLANTABLE OR ATTACHED BILLING AND INSURANCE COORDINATOR: No RADIOLOGY DEPARTMENT: Ultrasound PERIPHERAL IV DATA: Not applicable SIGNED BY: Luann Clarke RDMS, RVT April 13, 2024 10:58 AM documented in this encounter [facility] 04-13-2024 Note HNO ID: [id number] Author: LUANN CLARKE RT (R) Service: ? Author Type: Technologist Type: Progress Notes Filed: 04/13/2024 10:58 Note Text: Radiology Service Progress Note PATIENT NAME: Pat Sorto DATE OF SERVICE: April 13, 2024 TIME: 10:58 AM PATIENT IDENTITY VERIFICATION COMPLETED USING TWO (2) IDENTIFIERS: Name and Date of confirmed by patient verbally. FALL SCREENING: Has the patient had 2 falls in the last year or 1 fall with injury or currently using an Ambulatory Assistive Device (Walker, Cane, Wheelchair, Crutches, etc.)? No PATIENT GENDER DATA: Female. status: : No status: NO. PATIENT RELEVANT IMPLANT DATA REVIEWED: Yes PATIENT PRESENTS WITH AN IMPLANTABLE OR ATTACHED BILLING AND INSURANCE COORDINATOR: No RADIOLOGY DEPARTMENT: Ultrasound PERIPHERAL IV DATA: Not applicable SIGNED BY: Luann Clarke RDMS, RVT April 13, 2024 10:58 AM [facility] 04-13-2024 Telephone encounter Note Pt. Contacted concerning results of PET , she questioned what this means Mild activity in the right axillary lymph nodes likely reactive. So she can have a better understanding. PET orders pended, please sign Kasie Lamb LPN [facility] 04-11-2024 Telephone encounter Note Please place order [facility] 04-10-2024 Telephone encounter Note Can let her know PET scan shows stable findings. Mild uptake in the previous areas posterior to the breast. No progression of cancer. We will continue current therapy. Please schedule for repeat PET scan several days before I see her in 3 to 4 months. [facility] 04-10-2024 Note [facility] 04-10-2024 History of Present illness Narrative Diagnosis: 1) Breast cancer. HPI: The patient is a 64-year-old female who has a past medical history significant for hypertension and primary biliary cirrhosis. She is seen by her mems process engineer approximately once a year and she has had stable findings. Most recent liver chemistries performed at [facility] on 01/10/2017 showed a total bilirubin of 0.3 mg/dL with a direct bilirubin of 0.09 mg/dL. The AST was 19 and the ALT was 23. Alkaline phosphatase was 95. CBC at that time was normal with a white count of 8900. No differential. Hemoglobin 12.2 g/dL platelet count 237,000. Coagulation studies showed a normal INR 1.0 with a PT of 13.0 seconds. Evidently she was on a trip to [place] about 2 1/2 years ago when she developed pleuritic right-sided chest pain. She presented to local ER there. She's not sure what radiographic studies were done but she was told that there was a concern she had lung cancer and she was to follow-up when she got back home. Over the last 2 years she's had a number of radiographic studies including CT of the chest as well as PET scan last year that showed no evidence of malignancy. She's had pain under left breast that was attributed to rib fracture with healing. Over the last year there's been a lump in lower left breast thought associated to healing underlying rib fracture. Core needle biopsy performed on 03/29/2017: Left breast, core biopsy: Invasive ductal carcinoma, nuclear grade 2 (1.3 cm in greatest length). ER (clone [id number]) >95%, strong SC (clone [id number]/1E2) >95%, strong Her-2Neu (clone [id number]) 0 There was a spiculated mass at the lower outer left breast measuring 2.7 x 1.8 x 3.5 cm with central clip artifact consistent with the biopsy-proven malignancy. It was in the posterior depth but there was no evidence of chest wall involvement. There were no other abnormal areas of enhancement within the left breast. There were 2 abnormally thickened enhancing lymph nodes high in the left axilla that were suspicious for axillary node metastases. There are also several rounded nodes in the left high subpectoral region with the largest measuring 7 mm in short axis. These were noted to be suspicious. A possible 4 mm in short axis left internal mammary node was also appreciated. Full staging workup including CT scans of the chest, abdomen and pelvis as well as brain MRI and whole-body bone scan shows some mild activity in the distal femur on the right. Plain films showed degenerative changes without any osteoblastic or osteolytic activity. The CT scans disclosed 2 hypodense lesions in the liver that on MRI had signal characteristics consistent with hemangioma. Brain MRI was normal. Previous therapy: 1) Neoadjuvant AC followed by Taxol. 2) Underwent a left nipple sparing mastectomy with left axillary lymph node dissection and left arm reverse axillary mapping on 10/08/2017. This was done in conjunction with a implant and acellular dermal matrix with a lymphatico-venous bypass to the left axilla. 3) Adjuvant radiation to left chest wall/axilla and supraclavicular area completed 01/02/2018. Pathology from 10/08/2017 surgery: 1. Left axillary contents, excision (A) - Four of five lymph nodes, positive for metastatic carcinoma (4/5) with treatment effect. - Extranodal extension is present. - Biopsy clips and changes consistent with prior biopsy sites. 2. Left breast, mastectomy (B) - Fibrous tumor bed with residual invasive ductal carcinoma, histologic grade 1. - Ductal carcinoma in situ, intermediate nuclear grade, solid type. - Biopsy clip and changes consistent with prior biopsy site. - Please see synoptic report. SYNOPTIC REPORT OF [place] PATHOLOGIC FINDINGS LEFT BREAST: BREAST INVASIVE CARCINOMA WORKSHEET Part: A and B Procedure: Total mastectomy (including nipple-sparing and skin-sparing mastectomy) Specimen Laterality: Left Tumor size: Size of largest invasive carcinoma: Greatest dimension of largest focus of invasion >1 mm: 9 mm Tumor Focality: Single focus of invasive carcinoma Histologic Type of Invasive Carcinoma: Invasive carcinoma of no special type (ductal, not otherwise specified) Histologic Grade: Glandular (Acinar) / Tubular Differentiation: Score 2 Nuclear Pleomorphism: Score 2 Mitotic Rate: Score 1 (<=3 mitosis per mm2) Overall Grade: Grade I Ductal Carcinoma In Situ: DCIS is present in specimen DCIS Nuclear Grade: Grade II (intermediate) Tumor Extension: Skin: Not applicable Nipple: Not applicable Skeletal muscle: Not applicable Invasive Carcinoma Margins: Margins uninvolved by invasive carcinoma Distance from closest margin: 2 mm Closest margin: Inferior radial DCIS Margins: Margins uninvolved by DCIS Distance from closest margin: 5 mm Closest margin: Inferior radial Lymph Nodes: Involved by tumor cells Number of lymph nodes with macrometastases (>2 mm): 4 Number of lymph nodes with micrometastases (>0.2 mm to 2 mm and/or >200 cells): 0 Number of lymph nodes with isolated tumor cells (<= 0.2 mm and <= 200 cells): 0 Size of largest metastatic deposit: 8 mm Extranodal extension present: 1.5 mm Number of lymph nodes examined: 5 Treatment Effect: Treatment effect in the breast Treatment effect in the lymph nodes Probable or definite response to presurgical therapy in the invasive carcinoma Probable or definite response to presurgical therapy in metastatic carcinoma Lymph-Vascular Invasion: Present Pathologic Stage Classification (pTNM,AJCC 8th ed) TNM Descriptor(s): y (post- treatment) Primary Tumor (Invasive Carcinoma) (pT): pT1b Regional Lymph Nodes (pN): Modifier: Not applicable Category (pN): pN2a Distant metastasis: Distant Metastasis (pM) Not applicable/Not confirmed pathologically in this case Estrogen & progesterone receptors: Previously performed (HER2) ERBB2 Status: Previously performed Grain Elevator Superintendent Tumor Block: Specify: B3 Residual tumor burden: Tumor bed dimension #1: 8 mm Tumor bed dimension #2: 5 mm Overall tumor cellularity 50% Percentage in situ 3% Comment: Please see [id number] for the results of estrogen and progesterone receptors and HER2 studies. 3) Anastrozole on clinical trial. Stopped 08/2022. Metastatic disease. 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 Was seen by Dr. Bingham for the nodule appreciated on previous exam. Underwent punch biopsy on 07/19/2022. Pathology: Skin, left breast, punch biopsy: -Consistent with metastatic breast adenocarcinoma, see comment. Histologic sections demonstrate a largely unremarkable epidermis overlying a dermis filled with infiltrative cords and nests of pleomorphic epithelioid cells with ductal formation. To better characterize the specimen, ancillary immunohistochemical staining was performed on block A1 at the [facility] and compared to appropriate reactive controls. The epithelioid cells are positive for CK7 and GATA3. These histologic findings are consistent with metastatic breast adenocarcinoma from the patient's known malignancy. Underwent bronchoscopy on 08/14/2022 where lymph node sampling was performed of a 4L lymph node. Pathology: EBUS TRANSBRONCHIAL FINE NEEDLE ASPIRATE, LYMPH NODE - 4L Positive for malignant cells. Metastatic adenocarcinoma consistent with breast primary (see comment). Previous therapy for metastatic disease: 1) Verzenio. Began began 08/24/2022. Stopped due to fatigue and diarrhea. 2) Faslodex. Began 08/23/2022. 3) Ribociclib. Began 11/19. Current therapy: 1) Exemestane (05/13/2023) and everolimus second week April 2023. Was at [facility]. Had PET scan on 05/02. Demonstrated stable appearance of FDG uptake in the soft tissue thickenings along posterior left breast prosthesis and also small skin nodule left anterior breast as compared with outside PET/CT on 01/28. Small right axillary node with FDG avid uptake was noted to be stable. This was thought to be reactive rather metastatic disease. No other FDG avid lesions were observed including mediastinal and/or hilar adenopathy. Presents for ongoing oncologic management. Interim history: No complaints today. Blood sugars still tends to run high. Not checking home BPs. Has noticed more pain in the medial posterior left upper arm. Some more swelling as well. Has a compression sleeve that goes from wrist to axilla. When she wears it she feels like she has more swelling in the hand which makes her more uncomfortable. Has been using Neosporin on the area of dermal tumor 7 o'clock position right breast. Has not observed any signs of infection. However lesion is not quite healed. PMH, medications and allergies personally reviewed by me today. Any changes documented in appropriate section. ROS: Constitutional: Denies episodes of fever and night sweats. Neuro: Denies YOUSIF, vertigo, dizziness and imbalance. HEENT: No recent change in voice, vision or hearing. Resp: See HPI. CVS: See HPI.. GI: Denies dysgeusia. Denies symptoms of stomatitis. Denies dysphagia and odynophagia. Denies reflux. : Denies dysuria or gross hematuria. No symptoms of bladder outlet obstruction. Endo: Denies polyuria and polydipsia. Denies heat and cold intolerance. Derm: Denies rash. Denies jaundice and diffuse pruritis. Heme: Denies unusual bleeding and unexplained bruising. Psych: Normal mood. The sensitive examination was discussed with the Patient or Patient's Authorized Grain Elevator Superintendent. As applicable, any other physician, advance practice provider, medical student, or other health professional student that will be observing or involved in the sensitive examination for educational or training purposes was discussed with the Patient or Authorized Grain Elevator Superintendent. The Patient or Authorized Grain Elevator Superintendent has agreed to proceed with the sensitive examination. (Sensitive examination includes inspection and/or palpation of the breasts, pelvis, prostate and anorectal regions) Kasie Lamb LPN chaperoned PHYSICAL EXAM: Vitals: Blood pressure 134/90, pulse 100, temperature 36.9 C (98.5 F), temperature source Temporal, weight 77.6 kg (171 lb), SpO2 96%. -appearing and in no acute distress. EYES: Sclerae are anicteric bilaterally. LYMPHATIC: There is no palpable cervical or supraclavicular adenopathy. No axillary adenopathy. CARDIOVASCULAR: Rhythm is regular. BREAST: chaperoned. Left sided implant remains contracted. No longer able to appreciate the previous BB sized metastases along superior margin of the implant. The dermal lesion at 7 o'clock appears as a small ulcerated abrasion measuring about 1 cm across. Skin is mildly hypertrophic but no underlying mass. The scarred tissue in lateral inferior breast fold is again in the less prominent and softer than baseline exam. ABDOMEN: The abdomen is nondistended. Extremities: Mild swelling left arm compared to the right. SKIN: No jaundice or rash. LABS: PET Keshav on 05/02/2023. Resolution of FDG avid mediastinal adenopathy. Stable right axillary lymph node suspicious for reactive lymph node. Stable FDG uptake in the posterior tissues of the left breast prosthesis as well as skin nodule in the anterior 7 o'clock position of the breast. 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 -KPS is 100%. -PET scan indicated disease left chest wall and mediastinal lymph nodes. -MRI brain negative. -Biopsy-proven disease recurrence left chest wall inferior and posterior to implant. -ER positive (99% strong staining intensity), SC positive (2% with strong staining intensity), HER2 2+; nonamplified by FISH testing. 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 -MRI Breast 03/28/2023 demonstrated PD and therapy was rotated to Faslodex and Afinitor. Oncology at [facility] recommended exemestane with Afinitor. -Symptomatically tolerating well. -Awaiting radiology report on PET. Reviewed images. no obvious new disease. Plan: -Continue exemestane and everolimus. -Follow up with endocrinology for management of diabetes. -Resume every 6 month bisphosphonate therapy. -PET in about 3-4 months pending final results of PET 04/06/2024. -Advised Aquaphor and light Band-Aid to the right breast skin lesion. Hopefully can be excised with upcoming surgery. (I42.7, T45.1X5A) Chemotherapy-induced cardiomyopathy (HCC) Assessment: -Earlier in her clinical course, patient had otherwise unexplained persistent tachycardia. Echo showed normal EF but I had reviewed with cardiology--there was a 10 percent change in the strain pattern suggestive of early cardiomyopathy. -I again discussed with her the importance of blood pressure control. Encouraged her to get a home blood pressure cuff and monitor blood pressures to share with her manager of planning and PCP. Plan: -Continue Cozaar and follow-up with PCP for management of hypertension. (M79.89) Swelling of limb Assessment: -Has history of left-sided lymphedema. -New posterior medial left upper arm pain. Plan: -Ultrasound arm to rule out DVT. If negative, referral back to PT for fitting for compression sleeve with glove/gauntlet. Portions of this documentation were copied and pasted from my previous office visit note dated 01/06/2024 in order to provide a cohesive continuity of the history. The note has been reviewed and edited and updated as necessary. I spent a total of 25 minutes on the date of the service which included preparing to see the patient, [id number] patient care, completing clinical documentation, obtaining and/or reviewing separately obtained history, performing a medically appropriate examination, counseling and educating the patient/family/caregiver, communicating with other HCPs (not separately reported), and communicating results to the patient/family/caregiver. Serena Carrasco DO documented in this encounter [facility] 04-06-2024 History of Present illness Narrative RADIOLOGY SERVICE PROGRESS NOTE SERVICE DATE: 04/06/2024 SERVICE TIME: 9:00 AM PATIENT IDENTITY VERIFICATION COMPLETED USING TWO (2) STANDARD IDENTIFIERS: Name and Date of confirmed by patient verbally FALL SCREENING: Has the patient had 2 falls in the last year or 1 fall with injury or currently using an Ambulatory Assistive Device (Walker, Cane, Wheelchair, Crutches, etc.)? No PATIENT GENDER DATA: .female ALLERGIES: NA MEDICATIONS REVIEWED: Not applicable PATIENT RELEVANT IMPLANT DATA REVIEWED: Not Applicable PATIENT PRESENTS WITH AN IMPLANTABLE OR ATTACHED BILLING AND INSURANCE COORDINATOR: No CREATININE: Creatinine Date Value Ref Range Status 01/06/2024 0.81 0.58 - 0.96 mg/dL Final 11/11/2023 1.47 (H) 0.58 - 0.96 mg/dL Final 09/30/2023 0.90 0.58 - 0.96 mg/dL Final Estimated Glomerular Filtration Rate Date Value Ref Range Status 01/06/2024 81 >=60 mL/min/1.73m Final Comment: Estimated Glomerular Filtration Rate (eGFR) is calculated using the 2020 CKD-EPI creatinine equation. This equation utilizes serum creatinine, sex, and age as parameters. The creatinine assay has traceable calibration to isotope dilution-mass spectrometry. Refer to KDIGO guidelines for clinical interpretation. In patients with unstable renal function, e.g. those with acute kidney injury, the eGFR may not accurately reflect actual GFR. eGFR- Date Value Ref Range Status 02/15/2021 >60 Final P.O.C.T. RESULTS: N/A April 06, [address] PERFORMED: No IV SITE: Ambulatory: NM only - direct IV injection in the Right antecubital site POST EXAM PIV STATUS: Discontinued PROCEDURE TYPE: NM INJECT: PET/CT BODY SCAN. 9.5 mCi F18 FDG. No other medications given.. ADMINISTRATION TIME: 08 PATIENT DISCHARGED TO: Ambulatory patient, left [place] department area. Is this a therapy: No A Diagnostic radioactive procedure has taken place, with no further precautions necessary other than routine body substance precautions. More information regarding radiation safety can be found using this link: [email or web address] %[email or web address] SIGNATURE: PATRICIA Ying) PATIENT NAME: Pat Sorto DATE: April 06, 2024 TIME: 9:00 AM PAGER/CONTACT #: documented in this encounter [facility] 04-06-2024 Note HNO ID: [id number] Author: MYLA DO RT (R) Service: Nuclear Medicine Author Type: Technologist Type: Progress Notes Filed: 04/06/2024 09:01 Note Text: RADIOLOGY SERVICE PROGRESS NOTE SERVICE DATE: 04/06/2024 SERVICE TIME: 9:00 AM PATIENT IDENTITY VERIFICATION COMPLETED USING TWO (2) STANDARD IDENTIFIERS: Name and Date of confirmed by patient verbally FALL SCREENING: Has the patient had 2 falls in the last year or 1 fall with injury or currently using an Ambulatory Assistive Device (Walker, Cane, Wheelchair, Crutches, etc.)? No PATIENT GENDER DATA: .female ALLERGIES: NA MEDICATIONS REVIEWED: Not applicable PATIENT RELEVANT IMPLANT DATA REVIEWED: Not Applicable PATIENT PRESENTS WITH AN IMPLANTABLE OR ATTACHED BILLING AND INSURANCE COORDINATOR: No CREATININE: Creatinine Date Value Ref Range Status 01/06/2024 0.81 0.58 - 0.96 mg/dL Final 11/11/2023 1.47 (H) 0.58 - 0.96 mg/dL Final 09/30/2023 0.90 0.58 - 0.96 mg/dL Final Estimated Glomerular Filtration Rate Date Value Ref Range Status 01/06/2024 81 >=60 mL/min/1.73m? Final Comment: Estimated Glomerular Filtration Rate (eGFR) is calculated using the 2020 CKD-EPI creatinine equation. This equation utilizes serum creatinine, sex, and age as parameters. The creatinine assay has traceable calibration to isotope dilution-mass spectrometry. Refer to KDIGO guidelines for clinical interpretation. In patients with unstable renal function, e.g. those with acute kidney injury, the eGFR may not accurately reflect actual GFR. eGFR- Date Value Ref Range Status 02/15/2021 >60 Final P.O.C.T. RESULTS: N/A April 06, [address] PERFORMED: No IV SITE: Ambulatory: NM only - direct IV injection in the Right antecubital site POST EXAM PIV STATUS: Discontinued PROCEDURE TYPE: NM INJECT: PET/CT BODY SCAN. 9.5 mCi F18 FDG. No other medications given.. ADMINISTRATION TIME: 0854 PATIENT DISCHARGED TO: Ambulatory patient, left [place] department area. Is this a therapy: No A Diagnostic radioactive procedure has taken place, with no further precautions necessary other than routine body substance precautions. More information regarding radiation safety can be found using this link: [email or web address] 20Diagnostic%20Nuclear%20Medicine% 20Procedures.[email or web address] SIGNATURE: RT Deonna(R) PATIENT NAME: Pat Sorto DATE: April 06, 2024 TIME: 9:00 AM PAGER/CONTACT #: [facility] 03-25-2024 Note HNO ID: [id number] Author: DELMY PRIDE ST Service: ? Author Type: Surg Toddler Guide Type: Progress Notes Filed: 03/25/2024 11:26 Note Text: DATE OF PHOTOS: 03/25/2024 Body Part: Jermaine ST HANNA March 25, 2024 11:26 AM [facility] 03-25-2024 History of Present illness Narrative DATE OF PHOTOS: 03/25/2024 Body Part: Jermaine ST HANNA March 25, 2024 11:26 AM documented in this encounter [facility] 03-25-2024 History of Present illness Narrative Radiology Service Progress Note PATIENT NAME: Pta Sorto DATE OF SERVICE: March 25, 2024 TIME: 11:20 AM PATIENT IDENTITY VERIFICATION COMPLETED USING TWO (2) IDENTIFIERS: Name and Date of confirmed by patient verbally. FALL SCREENING: Has the patient had 2 falls in the last year or 1 fall with injury or currently using an Ambulatory Assistive Device (Walker, Cane, Wheelchair, Crutches, etc.)? No PATIENT GENDER DATA: Female. status: : No status: NO. PATIENT RELEVANT IMPLANT DATA REVIEWED: Yes PATIENT PRESENTS WITH AN IMPLANTABLE OR ATTACHED BILLING AND INSURANCE COORDINATOR: No RADIOLOGY DEPARTMENT: Mammography PERIPHERAL IV DATA: Not applicable SIGNED BY: RT Gilson(R) March 25, 2024 11:20 AM documented in this encounter [facility] 03-25-2024 Note [facility] 03-25-[address] Peace is prescribing losartan 50 mg. Rx refill refused. Confirmed with patient. Svetlana Kong LPN [facility] 03-25-[address] Peace is prescribing losartan 50 mg. Rx refill refused. Confirmed with patient. Svetlana Kong LPN documented in this encounter [facility] 03-25-2024 History of Present illness Narrative BREAST RECONSTRUCTION EVALUATION CC: Consult for Breast Reconstruction HPI: Pat Sorto is a 64 year old female that presents today for breast reconstruction evaluation. Newly diagnosed with reoccurance -left chest wall inferior and posterior to implant Hx of left breast cancer (2017), hx of bilateral mastectomies (Dr. Bingham) and implant reconstruction (Dr. Rodriguez) Side of Reconstruction: Bilateral Prior Breast Surgery: Yes Left nipple-sparing mastectomy, left axillary lymph node dissection, and left arm reverse axillary mapping. - with Dr. Bingham on 10/08/2017 Left breast reconstruction with implant and Acellular Dermal Matrix (ADM) sling (16 cm x 20 cm) Lymphatico-venous bypass to the left axilla with Dr. Rodriguez on 10/08/2017 Dr. Rodriguez on 08/29/2018 Left breast reconstruction revision with capsulotomies, fat grafting and implant exchange Prior Abdominal Surgery: Yes - x2 c-sections Hx Radiation Therapy: Yes- completed 12/2017 Hx Chemotherapy: Yes- completed in 2017 Bra Size: B Desired Bra Size: B HISTORY OF BREAST DISEASE: Postive patient history of breast disease: in 2017 MAMMOGRAM: No MRI BREAST BILAT: Yes, date: 02/18/2024, results: IMPRESSION: 1. Postsurgical changes from left mastectomy and silicone implant reconstruction. Enhancing mass in the skin of the lower inner reconstructed left breast at site of known biopsy-proven skin recurrence, similar to slightly larger compared to the breast MRI on 03/28/2023. Additional abnormal mass and nonmasslike enhancement in the 5:00 reconstructed left breast extending along the implant capsule is not significantly changed. No new areas of enhancement in the reconstructed left breast. A moderate-sized left karin-implant fluid collection has mildly increased compared to the prior breast MRI. 2. No suspicious areas of enhancement in the right breast. Consider continued right breast annual mammography (last prior right breast mammogram was 05/31/2022), if felt clinically indicated given known stage 4 metastatic left breast cancer. 3. No definite lymphadenopathy. Hx of type 2 diabetes Hemoglobin A1C (%) Date Value 10/07/2018 5.6 Hemoglobin A1C (POCT) (%) Date Value 03/18/2024 7.2 REVIEW OF SYSTEMS All negative except for: GENERAL: []weight loss []malaise []fevers HEENT: []frequent or significant headaches []changes in hearing []change in vision []nose bleeds []other nasal problems NECK: []lumps []goiter []pain and significant neck swelling RESPIRATORY: []cough []hemoptysis []wheezing []COPD []dyspnea []shortness of breath CARDIOVASCULAR: []chest pain []leg swelling []hypertension []CHF []palpitations GI: []nausea []vomiting []diarrhea MUSCULOSKELETAL: [] joint pain or swelling [] back pain []muscle pain SKIN: [] skin lesions []rash []itching PSYCH: []sleep disturbance []mood disorder []recent psychosocial stressors HEMATOLOGY/LYMPHOLOGY: []prolonged bleeding []bruising easily []swollen nodes ENDOCRINE: []cold intolerance []heat intolerance []polyuria []polydipsia []goiter [x] Diabetes HISTORY OF BLEEDING/CLOTTING/recurrent miscarriages (>3): No FAMILY HISTORY OF BLEEDING OR CLOTTING: No PMH: PAST MEDICAL HISTORY Diagnosis Date Breast CA (HCC) 09/2017 Breast cyst, left 2008 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) 08/01/2022 Dehydration 10/30/2022 Functional diarrhea 09/20/2022 HTN (hypertension) Malignant neoplasm of left breast in female, estrogen receptor positive (HCC) 08/01/2022 [facility] ([facility]CC[facility] Medications Medication Sig Dispense Refill losartan (COZAAR) 50 mg tablet Take 1 tablet by mouth every afternoon. ursodiol (LEENA) 250 mg tablet Take 250 mg by mouth two times a day. LORazepam (ATIVAN) 0.5 mg Take 1 tablet by mouth three times a day as needed for up to 90 days. 90 tablet 2 everolimus, antineoplastic, (AFINITOR) 10 mg tablet TAKE 1 TABLET ONCE DAILY 90 tablet 3 insulin glargine (LANTUS SOLOSTAR U-100 INSULIN) 100 unit/mL (3 mL) Inject 12 Units subcutaneously every morning. 15 mL 2 Sodium Fluoride, Dental Rinse, 0.2 % SWISH 10 ML BY MOUTH THEN SPIT ONCE WEEKLY Insulin Moore, Disposable, (PEN NEEDLE) 32 gauge x 5/32 Inject 1 Each subcutaneously every 24 hours. Give with each insulin administration. 100 Each 3 exemestane (AROMASIN) 25 mg tablet TAKE ONE TABLET BY MOUTH DAILY AFTER A MEAL 90 tablet 5 diphenhydrAMINE-Acetaminophen (TYLENOL PM EXTRA STRENGTH) 25-500 mg tab Take 1 tablet by mouth at bedtime as needed. AquacueTOUCH ULTRA PLUS TEST strp 1 Each two times a day. E11.65; No insulin 200 Each 3 losartan (COZAAR) 25 mg tablet take 1 tablet by mouth once daily (Patient not taking: Reported on 03/18/2024) 30 tablet 5 Lancets Use with blood glucose test two times a day. Insulin Dep? No 200 Each 3 blood sugar diagnostic (BLOOD GLUCOSE TEST) test strip Use with blood glucose test two times a day. Insulin Dep? No 200 Each 3 aspirin, enteric coated (ASPIRIN, ENTERIC COATED) 81 mg EC tablet Take 81 mg by mouth once daily. pantoprazole DR (PROTONIX) 40 mg tablet Take 40 mg by mouth daily before breakfast. ascorbic acid, vitamin C, (VITAMIN C) 500 mg tablet Take 500 mg by mouth once daily. alpha tocopheryl acetate (VITAMIN E) 400 unit capsule Take 400 Units by mouth once daily. cyanocobalamin (VITAMIN B-12) 1,000 mcg tab Take 500 mcg by mouth once daily. VITAMIN D 50,000 unit capsule 1 capsule one time a week. Ursodiol 500 mg tablet Take 1.5 tablets by mouth twice daily. CALCIUM CARBONATE (CALCIUM 500 ORAL) Take 1 tablet by mouth once daily. No current facility-administered medications for this visit. 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 Breast Exam: Asymmetry: Yes Masses: skin lesions along the left lower breast pole Axillary Lymphadenopathy: no Scars: left IMF Ptosis: R: Grade III L: Grade III Note: measurements are in centimeters SN to NIPPLE: L 22.5 R: 24.5 IMF to NIPPLE: L: 6.5 R: 9 WIDTH: L: 13 R: 16 Assessment/Plan This is a 64 year old woman with Left breast cancer. The patient is a candidate for Left breast reconstruction with removal of left breast implant and closure or Oncoplastic techniques and possible use of acellular dermal matrix, use of acellular dermal matrix (ADM) is used as an off-label device and can potentially increase postoperative complications. An extensive discussion was undertaken with the patient detailing the risks, benefits and alternatives to removal of implant. We discussed that breast reconstruction is a process and not usually a single stage procedure. The effects of radiation on breast reconstruction, should that become a necessary part of her treatment, were discussed. The patient verbalized understanding of these risks. All questions were fully answered. Pat Sorto was given supplemental information on breast reconstruction. I have advised her to contact me at any time and/or return to see me with further questions she may have regarding breast reconstruction. Photographs have been taken and will be sent to the insurance company as necessary. Encouraged patient to communicate via My Chart message with non-urgent questions or concerns. This plan will be coordinated with Dr. Bingham. Consent obtained. -Follow up after surgery Consultation requested by Dr. Charles for an opinion regarding breast reconstruction. My final recommendations will be communicated back to the requesting physician by way of shared Medical record or letter to requesting physician via US mail. This visit lasted for more than 45 minutes and greater than 50% of the visit was involved in the discussion of the options for treatment. The patient is seen and examined by Dr. Marcelino and the following reflects her service. Scribed by Breanne Solis RN I agree with the Chief Complaint, ROS, and Past Histories independently gathered by the clinical help desk support and the remaining scribed note accurately describes my personal service to the patient. Today's office visit on March 25, 2024 She has metastatic left breast cancer to the skin and pulmonary nodules. She has grade 4 capsular contracture causing extreme discomfort. She has some metastatic lesions. I saw her with Dr Bingham and will plan for palliative surgery to remove her left breast implant, capsulectomies if possible and possibly remove some of the metastatic lesions. However, the preference will be to ensure that we can close the incision primarily. I discussed that if we cannot close primarily than a latissimus flap would be needed which we will try and avoid. I discussed risk and benefits not limited to: unaesthetic result, bleeding, infection, seroma, wound healing issues, need for revisional surgery. 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 [id number] Stage IIIC Neoadjuvant course :ddACx4, Taxol x12 (Masci) 10/08/2017 Left MRM with LVB and implant (Rodriguez) Path: 9 mm residual IDC, DCIS, 4/5 LNs positive for carcinoma with treatment effect y pT1b pN2a 01/02/2018 Completed PMRT (Raul) took anastrozole through August 2022 08/29/2018 s/p Left breast reconstruction revision with capsulotomies, fat grafting and implant exchange 07/19/2022 punch biopsy left breast of suspicious skin nodule c/w metastatic breast adenocarcinoma 07/30/22 PET concerning for paratracheal, pretracheal, pre- and sub-carinal and left hilar metastatic adenopathy local chest wall recurrence on PET is in the inferior - lateral aspect of the left breast prosthesis 08/15/22: breast MRI: LEFT 3.1 x 1.7 x 2.2 cm irregular mass at 5:00 far posterior/lateral along the IMF The mass invades the implant with thickening/irregularity of the implant capsule (especially posteriorly) and karin-implant effusion. Posteriorly, enhancement along the pectoralis muscle which abuts the capsule is concerning for potential disease involvement. Anteriorly, there is enhancement of the overlying skin at the IMF. 1 cm lobulated enhancing mass within the skin of the reconstructed left breast at 7:00 correlates with recent skin punch biopsy and known metastatic disease. - No axillary or internal mammary adenopathy. 08/14/2022: EBUS: + metastatic adeno to mediastinal nodes 01/28/23; interval PET Persistent Hypermetabolic soft tissue thickening along the posterior lateral aspect of the left breast implant suspicious for neoplasm. Mildly hypermetabolic nodule medially to the implant suspicious for metastatic nodule Interval improvement in the previously present hypermetabolic hilar and mediastinal lymph nodes Apr 2023: discussion held and surgical intervention was decided against as she had continued local progression of disease 12/30/23; interval PET : showed INTERVAL IMPROVEMENT Slightly improved left breast periprosthetic uptake compared to 08/19/2023 no other evidence of metabolic disease 02/18/24; interval MRI RIGHT few stable borderline prominent right axillary lymph nodes, unchanged compared to remote prior breast MRIs No suspicious enhancing masses LEFT moderate-sized periimplant fluid collection has mildly increased compared to 03/28/2023 breast MRI No left axillary lymphadenopathy Enhancing mass in the skin of the lower inner at site of biopsy-proven skin recurrence measures: 1.5 x 0.8 x 0.7 cm (03/28/2023 it measured 1.3 x 0.8 x 1.2 cm) Abnormal combined mass and NME lower outer, 5o'c posterior depth extending into IMF: 1.7 x x 2.9 x 2.1 extending along the implant capsule moderate-sized left karin-implant fluid collection has mildly increased compared to the prior breast MRI She has been maintaining on Faslodex (since August 2022) and Ribociclib (since Nov 2022) started exemestane May 2023 HISTORY: additional: known PBC (LFTs stable) and HTN she wears a compression sleeve REVIEW OF SYSTEMS 14 point ROS is negative except for that which is stated above. EXAMINATION: The sensitive examination was discussed with the Patient or Patient's Authorized Grain Elevator Superintendent. As applicable, any other physician, advance practice provider, medical student, or other health professional student that will be observing or involved in the sensitive examination for educational or training purposes was discussed with the Patient or Authorized Grain Elevator Superintendent. The Patient or Authorized Grain Elevator Superintendent has agreed to proceed with the sensitive examination. (Sensitive examination includes inspection and/or palpation of the breasts, pelvis, prostate and anorectal regions) LEFT: the lateral (LOQ) along IMF - known area of recurrence actually has improved - in that it is softer Skin nodule 7o'c LIQ- is flatter- less apparent the sub-Q palpable nodules noted Apr 2023 (see photo from that note) are no longer readily palpable. the implant is firm and contracted she has no visible left arm lymphedema today; decent ROM no regional adenopathy There is a NO dominant mass on the right side. BREAST IMAGING: reviewed priors as it related IMPRESSION/PLAN: PBC HTN 2018: Stage IIIC ER/SC positive, HER2 negative left breast cancer treated; NACT (Masci) ; MRM/impkant; PMRT (completed Dec 2017) July 2022; biopsy (punch) proven skin met PET c/w metastatic disease (EBUS: + FNA mediastinal node) verzenio/faslodex/ribociclib now on Exemestane Her contracted implant is painful and limiting her QOL: we had previously discussed situation (Apr 2023: however at the time: she had less pain and there was clinical evidence of disease progression. No intervention recommended. She presents today with worsening pain and would like to discuss explantation. patient is seen concurrent with Dr. Marcelino- the 3 of us discussed situation and goals if surgery were considered; primarily, surgery to explant would be for symptomatic relief- there is no goal of removing local disease. In terms of the local disease- while explanting any obvious/palpable tumor (aliza LOQ/LIQ) which can be resected is reasonable without altering or extending her recovery. She clearly understands situation and would like to proceed with implant removal. Dr. Marcelino will schedule and I will be available to access mastectomy bed with possible excision of gross disease if deemed safe. I spent a total of 75 minutes on the date of the service which included preparing to see the patient, [id number] patient care, completing clinical documentation, obtaining and/or reviewing separately obtained history, performing a medically appropriate examination, counseling and educating the patient/family/caregiver, ordering medications, tests, or procedures, communicating with other HCPs (not separately reported), independently interpreting results (not separately reported), communicating results to the patient/family/caregiver, and care coordination (not separately reported). Eliz Bingham MD documented in this encounter [facility] 03-25-2024 Note [facility] 03-25-2024 Note [facility] 03-18-2024 Instructions Jacinta Rivas MD - 03/18/2024 2:33 PM EST - Increase Losartan dosage to 50 mg daily to better manage blood pressure. - Monitor blood pressure regularly and report any significant changes. - Continue current insulin regimen; contact your assurance associate to discuss potential adjustments to better control blood sugar levels. - Stay hydrated throughout the day to help manage blood sugar levels and reduce nighttime urination. - Consider drinking broth if blood sugar levels are high to help flush out excess sugar. - Perform light massage on the affected arm to help manage lymphedema. - Use elastic athletic wear to provide gentle compression and support for lymphedema management. - Follow up with your oncologist to discuss potential side effects of Afinitor and explore alternative medications if necessary. - Use coconut oil for oil pulling to help soothe mouth sores and maintain oral hygiene. - Apply tallow or coconut oil to nails to help moisturize and strengthen them. - Use plain saline lubricating eye drops to help manage dry eyes and reduce excessive tearing. - Follow up with your pipe straightener to discuss potential cataract surgery and eyelid surgery to improve vision and reduce tearing. - Follow up with your surgeon to discuss the removal of the implant that is causing discomfort. - Follow up with your mems process engineer to monitor liver function and address any potential issues. - Follow up with your manager of planning to monitor heart function and address any potential issues. - Follow up with your assurance associate to monitor blood sugar levels and adjust insulin dosage as needed. - Follow up with your oncologist to monitor the effectiveness of Afinitor and address any potential side effects. - Follow up with your primary care physician to monitor overall health and address any new or ongoing concerns. documented in this encounter [facility] 03-18-2024 Note [facility] 03-18-2024 History of Present illness Narrative This note was created using [employer]. Subjective Pat Sorto is a 64 year old female. HISTORY Pat Sorto is a 64 year old lady here for yearly exam and follow up appointment. Pat Sorto is a 64-year-old female with a history of diabetes mellitus, HTN, and breast cancer, presenting for a follow-up visit. Pat reports persistent hyperglycemia, with blood glucose levels occasionally reaching 250 mg/dL, despite dietary modifications and insulin therapy. She attributes the elevated blood glucose levels to the initiation of Afinitor, which she believes is contributing to her hyperglycemia. She is currently administering 12 units of insulin daily and denies any episodes of hypoglycemia. Her fasting blood glucose levels range from 170-180 mg/dL, with the lowest recorded level being 120 mg/dL. She is under the care of Keisha Castro NP, for diabetes management. Pat also reports elevated blood pressure readings since starting Afinitor. She is currently taking losartan 25 mg, but her manager of planning, Dr. Peace, has recommended increasing the dosage to 50 mg. She has not yet made this adjustment and is seeking confirmation before doing so. She notes occasional elevations in her resting heart rate and is uncertain if this is related to Afinitor. Additionally, Pat reports a sore throat persisting for approximately 3 weeks, which she describes as worsening over time. She denies any exposure to individuals with streptococcal pharyngitis. She also reports xerostomia and recurrent oral ulcers, which she attributes to her medication regimen. She has previously used BMX solution for oral ulcers but has discontinued it. She denies any issues with deglutition. Pta also reports persistent epiphora, which she attributes to chemotherapy. She has been diagnosed with cataracts, with the left eye being more affected than the right. She is considering surgical intervention for the cataracts. Pat has a history of lymphedema in her left upper extremity following a mastectomy. She reports daily swelling and has been using a compression sleeve, which she finds uncomfortable and often removes during the night. She also reports a history of a surgical procedure to connect a duct to a vein to improve lymphatic drainage, performed approximately 6 years ago. Pat also reports discomfort from a breast implant, which she describes as terrible. She notes that the implant feels hard and causes a significant gap when she lifts her arm. She is scheduled to see her surgeon next week to discuss the possibility of removing the implant. She also reports a history of a blistering rash on her neck, which she believes is related to sun exposure and her medication regimen. The rash was previously treated with topical zinc and Vaseline. She denies any recent episodes of this rash. Pat is currently under the care of an oncologist at [facility] in [place], [place], and has a PET scan scheduled for the end of the month. She is also following up with a mems process engineer for liver issues and is under the care of an assurance associate for diabetes management. She denies any recent changes in her family medical history. 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 Husam Hart in [place] Current Outpatient Medications Medication Sig LORazepam (ATIVAN) 0.5 mg Take 1 tablet by mouth three times a day as needed for up to 90 days. everolimus, antineoplastic, (AFINITOR) 10 mg tablet TAKE 1 TABLET ONCE DAILY insulin glargine (LANTUS SOLOSTAR U-100 INSULIN) 100 unit/mL (3 mL) Inject 12 Units subcutaneously every morning. Sodium Fluoride, Dental Rinse, 0.2 % SWISH 10 ML BY MOUTH THEN SPIT ONCE WEEKLY Insulin Moore, Disposable, (PEN NEEDLE) 32 gauge x 5/32 Inject 1 Each subcutaneously every 24 hours. Give with each insulin administration. exemestane (AROMASIN) 25 mg tablet TAKE ONE TABLET BY MOUTH DAILY AFTER A MEAL diphenhydrAMINE-Acetaminophen (TYLENOL PM EXTRA STRENGTH) 25-500 mg tab Take 1 tablet by mouth at bedtime as needed. AquacueTOUCH ULTRA PLUS TEST strp 1 Each two times a day. E11.65; No insulin losartan (COZAAR) 25 mg tablet take 1 tablet by mouth once daily Lancets Use with blood glucose test two times a day. Insulin Dep? No blood sugar diagnostic (BLOOD GLUCOSE TEST) test strip Use with blood glucose test two times a day. Insulin Dep? No aspirin, enteric coated (ASPIRIN, ENTERIC COATED) 81 mg EC tablet Take 81 mg by mouth once daily. pantoprazole DR (PROTONIX) 40 mg tablet Take 40 mg by mouth daily before breakfast. ascorbic acid, vitamin C, (VITAMIN C) 500 mg tablet Take 500 mg by mouth once daily. alpha tocopheryl acetate (VITAMIN E) 400 unit capsule Take 400 Units by mouth once daily. cyanocobalamin (VITAMIN B-12) 1,000 mcg tab Take 500 mcg by mouth once daily. VITAMIN D 50,000 unit capsule 1 capsule one time a week. Ursodiol 500 mg tablet Take 1.5 tablets by mouth twice daily. CALCIUM CARBONATE (CALCIUM 500 ORAL) Take 1 tablet by mouth once daily. No current facility-administered medications for this visit. ALLERGIES Allergen Reactions Amoxicillin Rash rash arms trunk neck face, itching Chills FAMILY HISTORY Problem Relation Age of Onset Diabetes Mother Heart disease Mother Diabetes Father Hypertension Sister Hypertension Brother twin Hearing Loss Maternal Grandmother Heart disease Maternal Grandmother other (Lung Cancer) Maternal Grandfather smoker Diabetes Paternal Grandmother other (Lung Cancer) Paternal Grandfather smoker No Known Problems Son No Known Problems Son Social History Tobacco Use Smoking status: Never Smokeless tobacco: Never Vaping Use Vaping status: Never Used Substance Use Topics Alcohol use: Yes Comment: occasional Drug use: No Review of Systems Objective BP 148/92 Pulse 82 Temp 36.7 C (98 F) Resp 16 Ht 166 cm (5' 5.35) Wt 75.8 kg (167 lb 1.7 oz) SpO2 98% BMI 27.51 kg/m Last 5 Encounter Wt Readings: Date: Wt: 03/18/2024 75.8 kg (167 lb 1.7 oz) 02/05/2024 75.5 kg (166 lb 6.4 oz) 01/06/2024 74.2 kg (163 lb 8 oz) 11/11/2023 74.2 kg (163 lb 8 oz) 10/23/2023 74.9 kg (165 lb 1.6 oz) No waist measurement recorded Estimated body mass index is 27.51 kg/m as calculated from the following: Height as of this encounter: 166 cm (5' 5.35). Weight as of this encounter: 75.8 kg (167 lb 1.7 oz). Last 5 Encounter BP Readings: Date: BP: 03/18/2024 148/92 01/06/2024 168/96 11/11/2023 118/77 10/23/2023 98/62 10/18/2023 145/82 03/18/24 1320 03/18/24 1422 BP: 148/92 138/88 Pulse: 82 Resp: 16 Temp: 36.7 C (98 F) SpO2: 98% Weight: 75.8 kg (167 lb 1.7 oz) Height: 166 cm (5' 5.35) Physical Exam Vitals reviewed. Constitutional: Appearance: Normal appearance. She is well-developed. HENT: Head: Normocephalic and atraumatic. Right Ear: Tympanic membrane, ear canal and external ear normal. Left Ear: Tympanic membrane, ear canal and external ear normal. Nose: Nose normal. Mouth/Throat: Mouth: Mucous membranes are moist. Pharynx: No oropharyngeal exudate or posterior oropharyngeal erythema. Eyes: Conjunctiva/sclera: Conjunctivae normal. Pupils: Pupils are equal, round, and reactive to light. Neck: Thyroid: No thyromegaly. Vascular: No carotid bruit. Comments: Tonsillar lymph nodes a little prominent Cardiovascular: Rate and Rhythm: Normal rate and regular rhythm. Pulses: Normal pulses. Heart sounds: Normal heart sounds. No murmur heard. No friction rub. No gallop. Pulmonary: Effort: Pulmonary effort is normal. Breath sounds: Normal breath sounds. Abdominal: General: Bowel sounds are normal. There is no distension. Palpations: Abdomen is soft. There is no mass. Tenderness: There is no abdominal tenderness. Musculoskeletal: General: No deformity. Normal range of motion. Right lower leg: No edema. Left lower leg: No edema. Lymphadenopathy: Cervical: No cervical adenopathy. Skin: General: Skin is warm and dry. Coloration: Skin is not jaundiced or pale. Findings: No rash. Neurological: General: No focal deficit present. Mental Status: She is alert and oriented to person, place, and time. Cranial Nerves: No cranial nerve deficit. Sensory: No sensory deficit. Motor: No abnormal muscle tone. Coordination: Coordination normal. Deep Tendon Reflexes: Reflexes normal. Psychiatric: Attention and Perception: Attention and perception normal. Mood and Affect: Mood and affect normal. Speech: Speech normal. Behavior: Behavior normal. Thought Content: Thought content normal. Cognition and Memory: Cognition and memory normal. Judgment: Judgment normal. Latest Ref Rn 07/16/2023 08/05/2023 08/08/2023 08/30/2023 09/30/2023 11/11/2023 01/06/2024 WBC 3.70 - 11.00 k/uL 6.09 6.43 6.08 9.29 5.99 RBC 3.90 - 5.20 m/uL 3.68 (L) 4.16 3.92 3.38 (L) 3.91 Hemoglobin 11.5 - 15.5 g/dL 9.9 (L) 11.0 (L) 10.3 (L) 8.7 (L) 10.9 (L) Hematocrit 36.0 - 46.0 % 30.2 (L) 33.8 (L) 31.6 (L) 27.9 (L) 32.5 (L) MCV 80.0 - 100.0 fL 82.1 81.3 80.6 82.5 83.1 MCH 26.0 - 34.0 pg 26.9 26.4 26.3 25.7 (L) 27.9 MCHC 30.5 - 36.0 g/dL 32.8 32.5 32.6 31.2 33.5 RDW-CV 11.5 - 15.0 % 14.7 14.3 13.8 13.9 13.9 Platelet Count 150 - 400 k/uL 191 195 194 318 218 MPV 9.0 - 12.7 fL 10.4 10.1 9.8 9.3 10.1 Neut% % 64.2 64.0 51.6 69.8 65.9 Abs Neut (ANC) 1.45 - 7.50 k/uL 3.91 4.12 3.13 6.48 3.95 Lymph% % 24.0 25.7 30.4 20.9 23.5 Abs Lymph 1.00 - 4.00 k/uL 1.46 1.65 1.85 1.94 1.41 Chase% % 8.7 7.0 9.7 7.2 7.7 Abs Chase <0.87 k/uL 0.53 0.45 0.59 0.67 0.46 Eosin% % 2.1 2.2 6.7 1.1 1.7 Abs Eosin <0.46 k/uL 0.13 0.14 0.41 0.10 0.10 Baso% % 0.7 0.8 1.3 0.6 0.7 Abs Baso <0.11 k/uL 0.04 0.05 0.08 0.06 0.04 Immature Gran % % 0.3 0.3 0.3 0.4 0.5 IMMATURE GRANS (ABS) <0.10 k/uL <0.03 <0.03 <0.03 0.04 0.03 NRBC /100 WBC 0.0 0.0 0.0 0.0 0.0 Absolute nRBC <0.01 k/uL <0.01 <0.01 <0.01 <0.01 <0.01 DTYPE Auto Auto Auto Auto Auto Protein, Total 6.3 - 8.0 g/dL 7.1 7.2 6.5 7.0 7.1 Albumin 3.9 - 4.9 g/dL 3.8 (L) 3.9 3.6 (L) 3.6 (L) 4.0 Calcium 8.5 - 10.2 mg/dL 9.2 9.6 9.3 9.2 9.6 Bilirubin, Total 0.2 - 1.3 mg/dL 0.3 0.2 0.2 0.3 0.3 Alkaline Phosphatase 34 - 123 U/L 63 66 57 74 68 AST 13 - 35 U/L 20 22 20 17 20 ALT 7 - 38 U/L 17 14 13 9 13 Glucose 74 - 99 mg/dL 249 (H) 166 (H) 119 (H) 168 (H) 171 (H) BUN 7 - 21 mg/dL 16 17 16 23 (H) 21 Creatinine 0.58 - 0.96 mg/dL 0.86 0.91 0.90 1.47 (H) 0.81 Sodium 136 - 144 mmol/L 141 138 141 137 141 Potassium 3.7 - 5.1 mmol/L 3.4 (L) 3.7 3.6 (L) 3.8 3.6 (L) Chloride 98 - 107 mmol/L 106 (H) 103 106 101 103 CO2 22 - 30 mmol/L 27 27 26 24 26 Anion Gap 8 - 15 mmol/L 8 (L) 8 (L) 9 12 12 eGFR >=60 mL/min/1.73m 76 71 72 40 (L) 81 Cholesterol, Total <200 mg/dL 237 (H) 202 (H) Triglyceride <150 mg/dL 230 (H) 250 (H) HDL Cholesterol >39 mg/dL 35 (L) 27 (L) Non HDL Cholesterol <130 mg/dL 202 (H) 175 (H) Fasting Time hrs 11 12 VLDL Cholesterol <30 mg/dL 46 (H) 50 (H) TC:HDL Ratio <5.10 6.77 (H) 7.48 (H) LDL Cholesterol <100 mg/dL 156 (H) 125 (H) LDL:HDL Ratio <2.54 4.46 (H) 4.63 (H) Iron 41 - 186 ug/dL 49 TIBC 232 - 386 ug/dL 319 Transferrin Saturation 15.0 - 57.0 % 15.4 Hemoglobin A1C (POCT) 4.3 - 5.6 % 9.1 ! Ferritin 14.7 - 205.1 ng/mL 144.0 Legend: ! Abnormal (L) Low (H) High Hemoglobin A1C (%) Date Value 03/11/2023 6.1 10/07/2018 5.6 05/20/2018 5.7 Hemoglobin A1C (POCT) (%) Date Value 03/18/2024 7.2 07/16/2023 9.1 02/19/2022 5.9 Assessment and Plan # Type 2 diabetes mellitus without complication, without long-term current use of insulin (HCC) (E11.9) - Hemoglobin A1c improved to 7.2%. - Blood glucose levels occasionally reaching 250 mg/dL; fasting glucose levels range from 120-170 mg/dL. - Continue current insulin regimen; patient to contact Keisha Castro, BipinD, for potential insulin dose adjustments. - Educated on dietary modifications, including increased intake of omega-3 fatty acids (e.g., marine fish, edamame, brown flaxseed, walnuts) to improve HDL levels. - Advised to stay hydrated and consider drinking broth to help manage high blood glucose levels. - Follow-up with endocrinology ([facility] in April. 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 - Continue current management; no new interventions at this time. # Primary biliary cirrhosis (HCC) (K74.3) - No recent follow-up with hepatology. - Monitor liver function tests as per oncologist's recommendations. # Lymphedema of left arm (I89.0) - Mild lymphedema noted; patient has a compression sleeve but finds it uncomfortable. - Educated on the benefits of lymphatic massage and the use of elastic compression garments. - Advised to perform light massage to facilitate lymphatic drainage. # Sore throat (J02.9) - Sore throat persisting for approximately 3 weeks; no significant erythema or exudates observed on examination. - Discussed potential viral etiology and the importance of maintaining hydration. - Recommended coconut oil pulling to soothe oral mucosa and reduce bacterial load. - Monitor for any changes or worsening symptoms; consider ENT referral if symptoms persist. # Excessive tear production of both lacrimal glands (H04.203) - Chronic excessive tearing, more pronounced outdoors; possible underlying dry eye syndrome. - Advised to use plain saline lubricating eye drops in the morning and throughout the day as needed. - Discussed the potential benefit of consistent use to reduce reflex tearing. # Primary hypertension (I10) - Blood pressure readings have been elevated; recent reading 142/90 mmHg. - Currently on losartan 25 mg; instructed to increase dose to 50 mg as previously recommended by manager of planning Dr. Peace. - Discussed the importance of blood pressure control for renal and cardiovascular protection. - Advised to monitor blood pressure regularly and report any hypotensive symptoms. # Senile cataract of left eye, unspecified age-related cataract type (H25.9) - Cataract causing significant visual impairment; patient reports blurriness and excessive tearing. - Referred to ophthalmology for evaluation and potential surgical intervention. - Follow-up with Dr. Osmani Nelson for ongoing eye care. Jacinta Rivas MD documented in this encounter [facility] 03-11-2024 Telephone encounter Note Rx pended. Svetlana Kong LPN [facility] 03-11-2024 Miscellaneous Notes Rx pended. Svetlana Kong LPN documented in this encounter [facility] 03-09-2024 Telephone encounter Note Prescription Refill Information The patient has been identified by name and date of : Yes Caregiver verified no other encounters exist for this prescription request: Yes Caregiver confirmed with patient/requestor that no other refills are due, in the near future, with this provider at this time: Yes The last office visit in the department: 01/06/2024 Does the patient have a future office visit with this provider/department: Yes Requested Prescriptions Pending Prescriptions Disp Refills everolimus, antineoplastic, (AFINITOR) 10 mg tablet [Pharmacy Med Name: EVEROLIMUS 10 MG TABLET] Sig: TAKE 1 TABLET ONCE DAILY Kasie Lamb LPN March 09, 2024 11:12 AM [facility] 03-09-2024 Miscellaneous Notes Prescription Refill Information The patient has been identified by name and date of : Yes Caregiver verified no other encounters exist for this prescription request: Yes Caregiver confirmed with patient/requestor that no other refills are due, in the near future, with this provider at this time: Yes The last office visit in the department: 01/06/2024 Does the patient have a future office visit with this provider/department: Yes Requested Prescriptions Pending Prescriptions Disp Refills everolimus, antineoplastic, (AFINITOR) 10 mg tablet [Pharmacy Med Name: EVEROLIMUS 10 MG TABLET] Sig: TAKE 1 TABLET ONCE DAILY Kasie Lamb LPN March 09, 2024 11:12 AM documented in this encounter [facility] 02-27-2024 Telephone encounter Note Spoke with Pat. She will come in and meet with Dr Bingham and Dr Marcelino on 03/25 at 0830. Will schedule her imaging that day also. No further questions. She will check in and go to Dr Marcelino office. [facility] 02-27-2024 Miscellaneous Notes Spoke with Pat. She will come in and meet with Dr Bingham and Dr Marcelino on 03/25 at 0830. Will schedule her imaging that day also. No further questions. She will check in and go to Dr Marcelino office. documented in this encounter [facility] 02-26-2024 Telephone encounter Note Spoke to patient Advised will r/s apts today with Dr. Bingham and Dr. Marcelino as the purpose would be to be seen together simultaneously Will look into April after her PET scan Will r/s her mammogram in [place] for the right side Pt agreeable Cayla Charles PA-C February 26, 2024 8:44 AM [facility] 02-26-2024 Miscellaneous Notes Spoke to patient Advised will r/s apts today with Dr. Bingham and Dr. Marcelino as the purpose would be to be seen together simultaneously Will look into April after her PET scan Will r/s her mammogram in [place] for the right side Pt agreeable Cayla Charles PA-C February 26, 2024 8:44 AM documented in this encounter [facility] 02-25-2024 History of Present illness Narrative Primary Care Pharmacy Visit CC (Reason for Consult): (E11.9) Type 2 diabetes mellitus without complication, unspecified 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 insulin use (HCC) (primary encounter diagnosis) Goal(s): A1c <8% per consult Last Collaborating Provider Visit: 07/16/[address] Terence Saha Angelita Sorto is a 64 year old female presenting for follow up visit telephone call. Patient consents to pharmacy collaborative practice agreement. Last Pharmacy Visit: 01/07/24 - glipizide increased Interim Events: - 02/05/24 endo visit - glipizide held and insulin glargine started HPI: Reports doing okay Starting to see some improvement in BG readings but not much yet Confirmed starting insulin and no longer taking the glipizide Current DM Medications: Lantus 10 units once daily Glipizide XL 10 mg twice daily - not taking Previously Trialed DM Meds: Ozempic - diarrhea/vomiting Metformin - unable to tolerate Diet Denies any recent changes Has been walking more - about 3 miles/day GLYCEMIC CONTROL: Glucometer present at visit: Yes Hypoglycemia: No SMBGS (Fingersticks) Date Fasting AM Before Dinner 02/07 207 176 02/08 154 113 02/09 193 109 02/10 172 145 6 175 153 02/12 147 181 02/13 183 150 02/14 191 246 02/15 158 213 02/16 146 227 02/17 214 02/18 186 02/19 149 02/20 237 171 02/21 162 02/22 201 141 02/23 158 02/24 154 101 AVG 177 164 Past medical history reviewed. ALLERGIES Allergen Reactions Amoxicillin Rash rash arms trunk neck face, itching Chills Current Outpatient Medications Medication Sig Dispense Refill Sodium Fluoride, Dental Rinse, 0.2 % SWISH 10 ML BY MOUTH THEN SPIT ONCE WEEKLY insulin glargine (LANTUS SOLOSTAR U-100 INSULIN) 100 unit/mL (3 mL) Inject 10 units once daily. CAN TITRATE DOSE UP every 3-4 days by TWO UNITS until morning fasting sugar is 110-130. Then stay at that dose. 10 mL 3 Insulin Moore, Disposable, (PEN NEEDLE) 32 gauge x Inject 1 Each subcutaneously every 24 hours. Give with each insulin administration. 100 Each 3 exemestane (AROMASIN) 25 mg tablet TAKE ONE TABLET BY MOUTH DAILY AFTER A MEAL 90 tablet 5 glipiZIDE (GLUCOTROL XL) 10mg 24 hr tablet Take 1 tablet by mouth two times a day. 180 tablet 1 diphenhydrAMINE-Acetaminophen (TYLENOL PM EXTRA STRENGTH) 25-500 mg tab Take 1 tablet by mouth at bedtime as needed. ONETOUCH ULTRA PLUS TEST strp 1 Each two times a day. E11.65; No insulin 200 Each 3 losartan (COZAAR) 25 mg tablet take 1 tablet by mouth once daily 30 tablet 5 everolimus, antineoplastic, (AFINITOR) 10 mg tablet take 1 tablet once daily 30 tablet 5 Lancets Use with blood glucose test two times a day. Insulin Dep? No 200 Each 3 blood sugar diagnostic (BLOOD GLUCOSE TEST) test strip Use with blood glucose test two times a day. Insulin Dep? No 200 Each 3 aspirin, enteric coated (ASPIRIN, ENTERIC COATED) 81 mg EC tablet Take 81 mg by mouth once daily. pantoprazole DR (PROTONIX) 40 mg tablet Take 40 mg by mouth daily before breakfast. ascorbic acid, vitamin C, (VITAMIN C) 500 mg tablet Take 500 mg by mouth once daily. alpha tocopheryl acetate (VITAMIN E) 400 unit capsule Take 400 Units by mouth once daily. cyanocobalamin (VITAMIN B-12) 1,000 mcg tab Take 500 mcg by mouth once daily. VITAMIN D 50,000 unit capsule 1 capsule one time a week. Ursodiol 500 mg tablet Take 1.5 tablets by mouth twice daily. CALCIUM CARBONATE (CALCIUM 500 ORAL) Take 1 tablet by mouth once daily. No current facility-administered medications for this visit. Pill bottles are not present. Adherence: denies missed doses. Rx coverage: Payor: MEDICARE / Plan: MEDICARE A AND B / Product Type: Medicare / Medications affordable? Yes PHARMACOTHERAPY PREVENTATIVE MEDS: On LATISHA/ARB: Yes On Statin: No On ASA: Yes EXAM: There were no vitals taken for this visit. Last 3 Encounter BP Readings: Date: BP: 01/06/2024 168/96 11/11/2023 118/77 10/23/2023 98/62 Wt: 75.5 kg (166 lb 6.4 oz) BMI: 27.90 kg/(m^2) LABS: Lab Results Component Value Date HBA1C 9.1 07/16/2023 HBA1C 6.1 03/11/2023 HBA1C 5.9 02/19/2022 HBA1C 5.6 10/07/2018 HBA1C 5.7 05/20/2018 Glucose 171 01/06/2024 BUN 21 01/06/2024 Creatinine, Whole Blood (iSTAT) 0.81 01/06/2024 Sodium 141 01/06/2024 Potassium 3.6 01/06/2024 Chloride 103 01/06/2024 CO2 26 01/06/2024 Protein, Total 7.1 01/06/2024 Albumin 4.0 01/06/2024 Calcium 9.6 01/06/2024 Alkaline Phosphatase 68 01/06/2024 Bilirubin, Total 0.3 01/06/2024 AST 20 01/06/2024 ALT 13 01/06/2024 Lab Results Component Value Date CHOL 202 11/11/2023 CHOL 167 10/07/2018 LDL 125 11/11/2023 LDL 103 10/07/2018 HDL 27 11/11/2023 HDL 34 10/07/2018 TG 250 11/11/2023 TG 151 10/07/2018 No results found for: UALBCR eGFR-All Other Races (.) Date Value 02/15/2021 59 Estimated Glomerular Filtration Rate (mL/min/1.73m ) Date Value 01/06/2024 81 ASSESSMENT/PLAN: 1. Type 2 diabetes mellitus without complication, unspecified whether fpc insulin use (HCC) - ICD9: 250.00, ICD10: E11.9 - Improving control - Increase Lantus 12 units once daily - Removed glipizide from med list (stopped by endo, pt no longer taking) - Blood glucose monitoring on a twice daily schedule - Counseled on healthy diet and regular exercise - Discussed diabetic education issues of hypoglycemic/hyperglycemic symptoms - Follow up in 2 months, sooner should any other issues arise. Follow Up: Next PCP visit: 03/18/24 Next Endo visit: 04/15/24 Next PharmD visit: 05/05/24 Tatianna Crook, Last, BCACP Primary Care Clinical Putty Remover documented in this encounter [facility] 02-25-2024 Note [facility] 02-18-2024 History of Present illness Narrative Radiology Service Progress Note DATE OF SERVICE: February 18, 2024 TIME: 9:58 AM PATIENT WEIGHT: 162 LBS PATIENT IDENTITY VERIFICATION COMPLETED USING TWO (2) STANDARD IDENTIFIERS: Name and Date of confirmed by patient verbally. FALL SCREENING: Has the patient had 2 falls in the last year or 1 fall with injury or currently using an Ambulatory Assistive Device (Walker, Cane, Wheelchair, Crutches, etc.)? No PATIENT GENDER DATA: Female. status: : No status: NO. ALLERGIES: Reviewed and unchanged CONTRAST ALLERGY: No EXAM: MRI - CONTRAST TYPE: GROUP II IV SITE: Ambulatory: A peripheral IV was started in the Right antecubital site with a Angio cath: 20 gauge. IV SITE APPEARANCE: Clean,Dry and Intact SIGNATURE: Bianca Le RN PATIENT NAME: Pat Sorot DATE: February 18, 2024 TIME: 9:58 AM Radiology Service Progress Note PATIENT NAME: Pat Sorto DATE OF SERVICE: February 18, 2024 TIME: 10:28 AM PATIENT IDENTITY VERIFICATION COMPLETED USING TWO (2) IDENTIFIERS: Name and Date of confirmed by patient verbally. FALL SCREENING: Has the patient had 2 falls in the last year or 1 fall with injury or currently using an Ambulatory Assistive Device (Walker, Cane, Wheelchair, Crutches, etc.)? No PATIENT GENDER DATA: Female. status: : No status: NO. PATIENT RELEVANT IMPLANT DATA REVIEWED: Yes PATIENT PRESENTS WITH AN IMPLANTABLE OR ATTACHED BILLING AND INSURANCE COORDINATOR: No RADIOLOGY DEPARTMENT: MR; Exam(s) Completed: Chest: Breast PERIPHERAL IV DATA: Site assessment: Clean,Dry and Intact, Site disposition Discontinued SIGNED BY: HAYDEE Andrews February 18, 2024 10:28 AM documented in this encounter [facility] 02-18-2024 Note HNO ID: [id number] Author: BIANCA LE RN Service: Radiology Author Type: Registered Nurse Type: Progress Notes Filed: 02/18/2024 10:05 Note Text: Radiology Service Progress Note DATE OF SERVICE: February 18, 2024 TIME: 9:58 AM PATIENT WEIGHT: 162 LBS PATIENT IDENTITY VERIFICATION COMPLETED USING TWO (2) STANDARD IDENTIFIERS: Name and Date of confirmed by patient verbally. FALL SCREENING: Has the patient had 2 falls in the last year or 1 fall with injury or currently using an Ambulatory Assistive Device (Walker, Cane, Wheelchair, Crutches, etc.)? No PATIENT GENDER DATA: Female. status: : No status: NO. ALLERGIES: Reviewed and unchanged CONTRAST ALLERGY: No EXAM: MRI - CONTRAST TYPE: GROUP II IV SITE: Ambulatory: A peripheral IV was started in the Right antecubital site with a Angio cath: 20 gauge. IV SITE APPEARANCE: Clean,Dry and Intact SIGNATURE: Bianca Le RN PATIENT NAME: Pat Sorto DATE: February 18, 2024 TIME: 9:58 AM [facility] 02-18-2024 Note HNO ID: [id number] Author: JABARI HILL MRI Tech Service: Radiology Author Type: Technologist Type: Progress Notes Filed: 02/18/2024 10:31 Note Text: Radiology Service Progress Note PATIENT NAME: Pat Sorto DATE OF SERVICE: February 18, 2024 TIME: 10:28 AM PATIENT IDENTITY VERIFICATION COMPLETED USING TWO (2) IDENTIFIERS: Name and Date of confirmed by patient verbally. FALL SCREENING: Has the patient had 2 falls in the last year or 1 fall with injury or currently using an Ambulatory Assistive Device (Walker, Cane, Wheelchair, Crutches, etc.)? No PATIENT GENDER DATA: Female. status: : No status: NO. PATIENT RELEVANT IMPLANT DATA REVIEWED: Yes PATIENT PRESENTS WITH AN IMPLANTABLE OR ATTACHED BILLING AND INSURANCE COORDINATOR: No RADIOLOGY DEPARTMENT: MR; Exam(s) Completed: Chest: Breast PERIPHERAL IV DATA: Site assessment: Clean,Dry and Intact, Site disposition Discontinued SIGNED BY: Jabari Hill [employer] February 18, 2024 10:28 AM [facility] 02-05-2024 Note HNO ID: [id number] Author: NINI RUSSELL MA Service: ? Author Type: Humanities Department Chair Type: Progress Notes Filed: 02/05/2024 14:52 Note Text: [facility] 02-05-2024 History of Present illness Narrative Images from the original note were not included. Images from the original note were not included. NEW CONSULT OFFICE PROGRESS NOTE Reason for Consultation: DM Type 2 Referring Physician: SELF My final recommendations will be communicated back to the requesting physician by way of shared Medical record or letter via US mail. HISTORY OF PRESENT ILLNESS; Pat Sorto is a 63 year old FEMALE is presenting as a new patient to me regarding DM Type 2. She was initially diagnosed with diabetes in 2023 Treated for breast malignancy with mets Has chemo induced cardiomyopathy, anemia and neuropathy Hx of primary biliary cirrhosis Reports she was not a diabetic - but fasting sugars show insulin resistance (pre diabetes for 10+ years). Patient sts that she never had any issues with her blood sugars until she started AFINITOR which ' made me a diabetic ' Has been working with PharmD, glipizide was started for patient as she previously was rx'd metformin and ozempic, both of which she did not tolerate Sts sugars are still elevated even with the max dosing of the glipizide. DIETARY HISTORY: Breakfast: egg, on egling muffin or wheat toast w water sometimes tea, sweetened Lunch soup OR turkey sandwich OR ham/cheese sandwich water and arnold hathaway ice tea 4 oz (regular pop) 4 oz Dinner Clute or Steak or Chicken OR pasta with protein on weekends pizza or fish sandwich OR salad with protein sometimes take out/usually weekends only Snacks pretzels or apple slices occ ice cream or cookie IF selecting a sweet (usually after dinner) Drinks water, tea, reg pop or arnold hathaway ice tea sweetened Exercise: walking 10k steps per day CURRENT DM MEDS GLIPIZIDE 10 BID OZEMPIC for 7 weeks - GI issues METFORMIN noat tolerated SMBG Type of Monitor: Other Frequency of Monitorin times a day Hypoglycemia: no Diet: No specific diet regimen Exercise: none DM REVIEW OF SYSTEMS Last Eye Exam : 11/2023 Last Podiatry Exam: Cardiorespiratory: negative, denies chest pain, pressure Claudication: no Dyslipidemia: No High Blood Pressure: No CURRENT LABS HEMOGLOBIN A1C (POC) Component Ref Range & Units 6 mo ago 1 yr ago Hemoglobin A1C (POCT) 4.3 - 5.6 % 9.1 Abnormal Recent Labs 06/12/17 1529 06/27/17 1637 02/23/19 1018 03/18/19 0913 02/19/22 0957 07/04/22 0939 03/11/23 1144 04/04/23 0945 07/16/23 1145 08/05/23 0950 09/30/23 1044 11/11/23 0843 01/06/24 0951 ALT -- < > 10 < > -- < > -- < > -- < > 13 9 13 AST -- < > 15 < > -- < > -- < > -- < > 20 17 20 TPROT -- < > 7.1 < > -- < > -- < > -- < > 6.5 7.0 7.1 ALB -- < > 4.1 < > -- < > -- < > -- < > 3.6* 3.6* 4.0 CA -- < > 9.5 < > -- < > -- < > -- < > 9.3 9.2 9.6 TBILI -- < > 0.3 < > -- < > -- < > -- < > 0.2 0.3 0.3 ALKPHOS -- < > 71 < > -- < > -- < > -- < > 57 74 68 GLUC -- < > 100* < > -- < > -- < > -- < > 119* 168* 171* BUN -- < > 23* < > -- < > -- < > -- < > 16 23* 21 CREAT -- < > 0.91 < > -- < > -- < > -- < > 0.90 1.47* 0.81 NA -- < > 139 < > -- < > -- < > -- < > 141 137 141 K -- < > 3.6* < > -- < > -- < > -- < > 3.6* 3.8 3.6* CHLOR -- < > 105 < > -- < > -- < > -- < > 106 101 103 CO2 -- < > 27 < > -- < > -- < > -- < > 26 24 26 ANION -- < > 7* < > -- < > -- < > -- < > 9 12 12 EGFROTH -- < > >60 < > -- < > -- < > -- < > 72 40* 81 HBA1C -- < > -- -- 5.9 -- 6.1* -- 9.1* -- -- -- -- B12 >2,000* -- 1,468* -- -- -- -- -- -- -- -- -- -- < > = values in this interval not displayed. Recent Labs 06/12/17 1529 05/20/18 0904 05/20/18 0904 10/07/18 1012 02/23/19 1018 02/19/22 0957 03/11/23 1144 07/16/23 1145 08/08/23 0845 11/11/23 0843 TG -- 164* -- 151* -- -- -- -- 230* 250* CHOL -- 167 -- 167 -- -- -- -- 237* 202* HDL -- 41 -- 34* -- -- -- -- 35* 27* VLDL -- 33* -- 30* -- -- -- -- 46* 50* LDL -- 93 -- 103* -- -- -- -- 156* 125* FASTTIME -- -- -- 12 -- -- -- -- 11 12 TCHDL -- 4.07 -- 4.91 -- -- -- -- 6.77* 7.48* LDLHDL -- 2.27 -- 3.03* -- -- -- -- 4.46* 4.63* NONHDL -- 126 -- 133* -- -- -- -- 202* 175* HBA1C -- 5.7* < > 5.6 -- 5.9 6.1* 9.1* -- -- HBA0 -- 117 -- 114 -- -- 128 -- -- -- B12 >2,000* -- -- -- 1,468* -- -- -- -- -- < > = values in this interval not displayed. 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 Husam Hart in [place] PAST SURGICAL HISTORY Procedure Laterality Date ARTHRP ACETBLR/PROX FEM PROSTC AGRFT/ALGRFT Right 03/20/2019 Hip replacement, total ARTHRP KNE CONDYLE&PLATU MEDIAL&LAT COMPARTMENTS Left 02/2016 BIOPSY BREAST OPEN INCISIONAL Left 2007 [facility] benign pathology per patient BREAST RECONSTRUCTION Left 2019 fat graft/implant exchange DELIVERY ONLY 1996,1993 , low transverse MASTECTOMY HX Left 2018 AND with immediate reconstruction FAMILY HISTORY Problem Relation Age of Onset Diabetes Mother Heart disease Mother Diabetes Father Hypertension Sister Hypertension Brother twin Hearing Loss Maternal Grandmother Heart disease Maternal Grandmother other (Lung Cancer) Maternal Grandfather smoker Diabetes Paternal Grandmother other (Lung Cancer) Paternal Grandfather smoker No Known Problems Son No Known Problems Son Social History Tobacco Use Smoking status: Never Smokeless tobacco: Never Vaping Use Vaping status: Never Used Substance Use Topics Alcohol use: Yes Comment: occasional Drug use: No Current Outpatient Medications Medication Sig glipiZIDE (GLUCOTROL XL) 10mg 24 hr tablet Take 1 tablet by mouth two times a day. diphenhydrAMINE-Acetaminophen (TYLENOL PM EXTRA STRENGTH) 25-500 mg tab Take 1 tablet by mouth at bedtime as needed. exemestane (AROMASIN) 25 mg tablet Take 1 tablet by mouth once daily. TAKE AFTER A MEAL. GetOutfitted[employer]CH ULTRA PLUS TEST strp 1 Each two times a day. E11.65; No insulin losartan (COZAAR) 25 mg tablet take 1 tablet by mouth once daily everolimus, antineoplastic, (AFINITOR) 10 mg tablet take 1 tablet once daily Lancets Use with blood glucose test two times a day. Insulin Dep? No blood sugar diagnostic (BLOOD GLUCOSE TEST) test strip Use with blood glucose test two times a day. Insulin Dep? No aspirin, enteric coated (ASPIRIN, ENTERIC COATED) 81 mg EC tablet Take 81 mg by mouth once daily. pantoprazole DR (PROTONIX) 40 mg tablet Take 40 mg by mouth daily before breakfast. ascorbic acid, vitamin C, (VITAMIN C) 500 mg tablet Take 500 mg by mouth once daily. alpha tocopheryl acetate (VITAMIN E) 400 unit capsule Take 400 Units by mouth once daily. cyanocobalamin (VITAMIN B-12) 1,000 mcg tab Take 500 mcg by mouth once daily. VITAMIN D 50,000 unit capsule 1 capsule one time a week. Ursodiol 500 mg tablet Take 1.5 tablets by mouth twice daily. CALCIUM CARBONATE (CALCIUM 500 ORAL) Take 1 tablet by mouth once daily. No current facility-administered medications for this visit. ALLERGIES Allergen Reactions Amoxicillin Rash rash arms trunk neck face, itching Chills REVIEW OF SYSTEMS - POSITIVES IN BOLD GENERAL:No weight loss, malaise or fevers HEENT:Negative for frequent or significant headaches, No changes in hearing or vision, no nose bleeds or other nasal problems NECK:Negative for lumps, goiter, pain and significant neck swelling RESPIRATORY: Negative for cough, hemoptysis, wheezing, COPD, dyspnea or shortness of breath CARDIOVASCULAR: Negative for chest pain, leg swelling, hypertension, CHF or palpitations PHYSICAL EXAMINATION: General appearance: Well appearing, alert, in no acute distress, well-hydrated, well nourished. Skin: Skin color, texture, turgor normal, no suspicious rashes or lesions Head: Normocephalic, no masses, lesions, tenderness or abnormalities Eyes: RAUL Neck: thyroid symmetric to inspection Acanthosis: none noted Extremities: Edema: none Neuro: Negative., Oriented X 3 ASSESSMENT/PLAN (E11.65) Poorly control type 2 diabetes mellitus (HCC) (primary encounter diagnosis) Comment: Latest Ref Rng 07/16/2023 Hemoglobin A1C (POCT) 4.3 - 5.6 % 9.1 ! Legend: ! Abnormal PATIENT METER DOWNLOADED AND REVIEWED FOR OV patient with elevated blood sugars since start of AFINITOR Currently using GLIPIZIDE max dose and not achieving good control. Given cirrhosis, would be better served by using basal insulin to start 10 units LANTUS once daily Consider LUDIN, if covered by medicare Will hold glipizide at this time, patient will stay in touch with blood sugars FOLLOW UP 2 months - recheck A1C Recommended diet: Low carbohydrate and Low saturated fat, low simple sugar, high fiber diet Exercise minimally 150 minutes per week, increase as tolerated. Adequate hydration - 1/2 body wgt in oz of water daily, unless fluid restriction applies. I instructed the patient to monitor blood sugars e4 times per day If blood sugars are persistently high or low, to call our office. Patient to continue to follow up with her PCP and with other consultants regarding her other medical problems. Plan: COMPREHENSIVE METABOLIC PANEL, LIPID PANEL, NONFASTING, ALBUMIN/CREATININE RATIO, URINE, HEMOGLOBIN A1C, ENDOCRINOLOGY DIETITIAN VISIT (MNT) Daisy Titus CNP documented in this encounter [facility] 02-05-2024 Note [facility] 01-13-2024 Note [facility] 01-13-2024 History of Present illness Narrative Images from the original note were not included. DEPARTMENT OF ORTHOPAEDICS CC: Follow-up visit after total hip replacement HPI: Ms. Sorto is here today for her 5 year clinical follow up status post right total hip replacement. Since her last visit Ms. Sorto conveys the interval has been complicated by 6 months of vague right hip, thigh and lateral aspect pain. She denies trauma. Occasionally takes tylenol at night but otherwise no treatment. Pleased with outcome: Yes Pain: 0 and 2 on a scale of 1-10 Ambulatory support: none Distance able to walk:> 30 minutes Stairs Normal sequence Requires a handrail: No Able to arise from chair: Yes with ease Able to do shoes/socks: Yes with ease Back issues: Yes Pain Medication: none REVIEW OF SYSTEMS No new medical issues PAST MEDICAL HISTORY Diagnosis Date Breast CA (HCC) 09/2017 Breast cyst, left 2007 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) 08/01/2022 Dehydration 10/30/2022 Functional diarrhea 09/20/2022 HTN (hypertension) Malignant neoplasm of left breast in female, estrogen receptor positive (HCC) 08/01/2022 Primary biliary cirrhosis (HCC) followed by Dr. Husam Hart in [place] PAST SURGICAL HISTORY Procedure Laterality Date ARTHRP ACETBLR/PROX FEM PROSTC AGRFT/ALGRFT Right 03/20/2019 Hip replacement, total ARTHRP KNE CONDYLE&PLATU MEDIAL&LAT COMPARTMENTS Left 02/2016 BIOPSY BREAST OPEN INCISIONAL Left 2007 [facility] benign pathology per patient BREAST RECONSTRUCTION Left 2018 fat graft/implant exchange DELIVERY ONLY 1996,1993 , low transverse MASTECTOMY HX Left 2017 AND with immediate reconstruction Current Outpatient Medications Medication Sig Dispense Refill glipiZIDE (GLUCOTROL XL) 10mg 24 hr tablet Take 1 tablet by mouth two times a day. 180 tablet 1 diphenhydrAMINE-Acetaminophen (TYLENOL PM EXTRA STRENGTH) 25-500 mg tab Take 1 tablet by mouth at bedtime as needed. exemestane (AROMASIN) 25 mg tablet Take 1 tablet by mouth once daily. TAKE AFTER A MEAL. 30 tablet 5 ONETOUCH ULTRA PLUS TEST strp 1 Each two times a day. E11.65; No insulin 200 Each 3 losartan (COZAAR) 25 mg tablet take 1 tablet by mouth once daily 30 tablet 5 everolimus, antineoplastic, (AFINITOR) 10 mg tablet take 1 tablet once daily 30 tablet 5 Lancets Use with blood glucose test two times a day. Insulin Dep? No 200 Each 3 blood sugar diagnostic (BLOOD GLUCOSE TEST) test strip Use with blood glucose test two times a day. Insulin Dep? No 200 Each 3 aspirin, enteric coated (ASPIRIN, ENTERIC COATED) 81 mg EC tablet Take 81 mg by mouth once daily. pantoprazole DR (PROTONIX) 40 mg tablet Take 40 mg by mouth daily before breakfast. ascorbic acid, vitamin C, (VITAMIN C) 500 mg tablet Take 500 mg by mouth once daily. alpha tocopheryl acetate (VITAMIN E) 400 unit capsule Take 400 Units by mouth once daily. cyanocobalamin (VITAMIN B-12) 1,000 mcg tab Take 500 mcg by mouth once daily. VITAMIN D 50,000 unit capsule 1 capsule one time a week. Ursodiol 500 mg tablet Take 1.5 tablets by mouth twice daily. CALCIUM CARBONATE (CALCIUM 500 ORAL) Take 1 tablet by mouth once daily. No current facility-administered medications for this visit. ALLERGIES Allergen Reactions Amoxicillin Rash rash arms trunk neck face, itching Chills FAMILY HISTORY Problem Relation Age of Onset Diabetes Mother Heart disease Mother Diabetes Father Hypertension Sister Hypertension Brother twin Hearing Loss Maternal Grandmother Heart disease Maternal Grandmother other (Lung Cancer) Maternal Grandfather smoker Diabetes Paternal Grandmother other (Lung Cancer) Paternal Grandfather smoker No Known Problems Son No Known Problems Son Social History Tobacco Use Smoking status: Never Smokeless tobacco: Never Vaping Use Vaping status: Never Used Substance Use Topics Alcohol use: Yes Comment: occasional Drug use: No EXAMINATION: GENERAL: normal body habitus and no apparent distress RESP: Unlabored with no shortness of breath CV: No extremity swelling, varices, edema, pallor, erythema Ms. Sorto has no difficulty arising out of a chair and has no difficulty ambulating in the exam room. her gait was normal, able to toe walk without difficulty, and able to heel walk without difficulty. LOWER EXTREMITIES: Right Hip: . Flexion was 100 degrees, extension full extension, 25 external, 20 degrees internal rotation. Active abduction was 30. Tender to palpation of greater trochanter. KNEE EXAM: Examination of both knees was unremarkable with good ROM and stability Both lower extremities were neurovascularly intact, has no evidence of cellulitis, and has no distal swelling. X-RAYS: Status post primary right total hip arthroplasty with uncemented components. Radiographic review has no findings of loosening, has no findings of wear, and has no other complicating process. ASSESSMENT: S/P right total hip arthroplasty, significantly improved from pre-operative state, and experiencing pain from low back and trochanteric bursitis on the right. PLAN: Continue home exercise program- low back stretching, Continue with activities as tolerated. Follow up will be in 1 year. If there are any questions or problems, patient instructed to call the office. Rx Drug Management: No prescription given at today's appointment. Subhash Avila PA-C documented in this encounter [facility] 01-13-2024 History of Present illness Narrative Radiology Service Progress Note PATIENT NAME: Pat Sorto DATE OF SERVICE: January 13, 2024 TIME: 1:56 PM PATIENT IDENTITY VERIFICATION COMPLETED USING TWO (2) IDENTIFIERS: Name and Date of confirmed by patient verbally. FALL SCREENING: Has the patient had 2 falls in the last year or 1 fall with injury or currently using an Ambulatory Assistive Device (Walker, Cane, Wheelchair, Crutches, etc.)? No PATIENT GENDER DATA: Female. status: : No status: NO. PATIENT RELEVANT IMPLANT DATA REVIEWED: Not Applicable PATIENT PRESENTS WITH AN IMPLANTABLE OR ATTACHED BILLING AND INSURANCE COORDINATOR: No RADIOLOGY DEPARTMENT: General X-ray: Exam(s) Completed: Pelvis X-Ray: Pelvis with Hip Right and Wt. Bearing PERIPHERAL IV DATA: Not applicable SIGNED BY: SUDHIR Irvin January 13, 2024 1:56 PM documented in this encounter [facility] 01-13-2024 Note HNO ID: [id number] Author: KODI REED CT Service: Radiology Author Type: Technologist Type: Progress Notes Filed: 01/13/2024 13:56 Note Text: Radiology Service Progress Note PATIENT NAME: Pat Sorto DATE OF SERVICE: January 13, 2024 TIME: 1:56 PM PATIENT IDENTITY VERIFICATION COMPLETED USING TWO (2) IDENTIFIERS: Name and Date of confirmed by patient verbally. FALL SCREENING: Has the patient had 2 falls in the last year or 1 fall with injury or currently using an Ambulatory Assistive Device (Walker, Cane, Wheelchair, Crutches, etc.)? No PATIENT GENDER DATA: Female. status: : No status: NO. PATIENT RELEVANT IMPLANT DATA REVIEWED: Not Applicable PATIENT PRESENTS WITH AN IMPLANTABLE OR ATTACHED BILLING AND INSURANCE COORDINATOR: No RADIOLOGY DEPARTMENT: General X-ray: Exam(s) Completed: Pelvis X-Ray: Pelvis with Hip Right and Wt. Bearing PERIPHERAL IV DATA: Not applicable SIGNED BY: SUDHIR Irvin January 13, 2024 1:56 PM [facility] 01-07-2024 History of Present illness Narrative Primary Care Pharmacy Visit CC (Reason for Consult): (E11.9) Type 2 diabetes mellitus without complication, unspecified whether fpc insulin use (HCC) (primary encounter diagnosis) Goal(s): A1c <8% per consult Last Collaborating Provider Visit: 07/16/[address] Terence Saha Angelita Sorto is a 63 year old female presenting for follow up visit telephone call. Patient consents to pharmacy collaborative practice agreement. Last Pharmacy Visit: 12/02/23 - glipizide increased HPI: Reports doing okay Denies any recent changes States BGs have been up and down recently Still trying to watch diet and has been pretty active recently; gets in about [id number] steps/day Current DM Medications: Glipizide XL 5 mg #2 every morning and #1 every evening Previously Trialed DM Meds: Ozempic - diarrhea/vomiting Metformin - unable to tolerate GLYCEMIC CONTROL: Glucometer present at visit: Yes Hypoglycemia: No SMBGS (Fingersticks) Fasting AM Bedtime 185 201 151 215 223 173 290 174 153 187 237 182 172 183 147 AVG 185 231 Past medical history reviewed. ALLERGIES Allergen Reactions Amoxicillin Rash rash arms trunk neck face, itching Chills Current Outpatient Medications Medication Sig Dispense Refill diphenhydrAMINE-Acetaminophen (TYLENOL PM EXTRA STRENGTH) 25-500 mg tab Take 1 tablet by mouth at bedtime as needed. iv contrast (will be provided with radiology test) MRI Breast DEYVI Inject, intravenously, once for 1 dose. No IV access, insert saline lock prior to the beginning of sedation, infusion, injection of imaging exam. Discontinue saline lock post exam. If Pt has a central line or IVAD, may access for administration according to line specific nursing protocol. Once exam is complete flush line and de-access according to line specific nursing protocol in the MR contrast administration guidelines link 1 Each 0 glipiZIDE (GLUCOTROL XL) 5 mg 24 hr tablet Take 2 tablets by mouth daily with breakfast AND 1 tablet daily with dinner. 90 tablet 2 LORazepam (ATIVAN) 0.5 mg Take 1 tablet by mouth three times a day as needed for up to 30 days. 90 tablet 0 exemestane (AROMASIN) 25 mg tablet Take 1 tablet by mouth once daily. TAKE AFTER A MEAL. 30 tablet 5 ONETOUCH ULTRA PLUS TEST strp 1 Each two times a day. E11.65; No insulin 200 Each 3 losartan (COZAAR) 25 mg tablet take 1 tablet by mouth once daily 30 tablet 5 everolimus, antineoplastic, (AFINITOR) 10 mg tablet take 1 tablet once daily 30 tablet 5 Lancets Use with blood glucose test two times a day. Insulin Dep? No 200 Each 3 blood sugar diagnostic (BLOOD GLUCOSE TEST) test strip Use with blood glucose test two times a day. Insulin Dep? No 200 Each 3 aspirin, enteric coated (ASPIRIN, ENTERIC COATED) 81 mg EC tablet Take 81 mg by mouth once daily. pantoprazole DR (PROTONIX) 40 mg tablet Take 40 mg by mouth daily before breakfast. ascorbic acid, vitamin C, (VITAMIN C) 500 mg tablet Take 500 mg by mouth once daily. alpha tocopheryl acetate (VITAMIN E) 400 unit capsule Take 400 Units by mouth once daily. cyanocobalamin (VITAMIN B-12) 1,000 mcg tab Take 500 mcg by mouth once daily. VITAMIN D 50,000 unit capsule 1 capsule one time a week. Ursodiol 500 mg tablet Take 1.5 tablets by mouth twice daily. CALCIUM CARBONATE (CALCIUM 500 ORAL) Take 1 tablet by mouth once daily. No current facility-administered medications for this visit. Pill bottles are not present. Adherence: denies missed doses. Rx coverage: Payor: [employer]THE[employer] / Plan: BLUE ACCESS PPO / Product Type: PPO / Medications affordable? Yes PHARMACOTHERAPY PREVENTATIVE MEDS: On LATISHA/ARB: Yes On Statin: No On ASA: Yes EXAM: There were no vitals taken for this visit. Last 3 Encounter BP Readings: Date: BP: 01/06/2024 168/96 11/11/2023 118/77 10/23/2023 98/62 Wt: 74.2 kg (163 lb 8 oz) BMI: 27.42 kg/(m^2) LABS: Lab Results Component Value Date HBA1C 9.1 07/16/2023 HBA1C 6.1 03/11/2023 HBA1C 5.9 02/19/2022 HBA1C 5.6 10/07/2018 HBA1C 5.7 05/20/2018 Glucose 171 01/06/2024 BUN 21 01/06/2024 Creatinine, Whole Blood (iSTAT) 0.81 01/06/2024 Sodium 141 01/06/2024 Potassium 3.6 01/06/2024 Chloride 103 01/06/2024 CO2 26 01/06/2024 Protein, Total 7.1 01/06/2024 Albumin 4.0 01/06/2024 Calcium 9.6 01/06/2024 Alkaline Phosphatase 68 01/06/2024 Bilirubin, Total 0.3 01/06/2024 AST 20 01/06/2024 ALT 13 01/06/2024 Lab Results Component Value Date CHOL 202 11/11/2023 CHOL 167 10/07/2018 LDL 125 11/11/2023 LDL 103 10/07/2018 HDL 27 11/11/2023 HDL 34 10/07/2018 TG 250 11/11/2023 TG 151 10/07/2018 No results found for: UALBCR eGFR-All Other Races (.) Date Value 02/15/2021 59 Estimated Glomerular Filtration Rate (mL/min/1.73m ) Date Value 01/06/2024 81 ASSESSMENT/PLAN: 1. Type 2 diabetes mellitus without complication, unspecified 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 insulin use (HCC) - ICD9: 250.00, ICD10: E11.9 - Worsening control - Increase glipizide XL to 10 mg twice daily - Blood glucose monitoring on a twice daily schedule - Counseled on healthy diet and regular exercise - Discussed diabetic education issues of hypoglycemic/hyperglycemic symptoms - Follow up in 6 weeks, sooner should any other issues arise. Follow Up: Next PCP visit: 03/18/24 Next endo visit: 02/05/24 (to establish care) Next PharmD visit: 02/25/24 Tatianna Crook, BipinD, BCACP Primary Care Clinical Putty Remover documented in this encounter [facility] 01-07-2024 Note [facility] 01-06-2024 Telephone encounter Note Discussed regroup with Dr Bingham and meeting with Dr Marcelino regarding implant removal on Feb 25. Will have MRI the week prior at [place] on Feb 17. Pat verbalized understanding. No further questions. [facility] 01-06-2024 Miscellaneous Notes Discussed regroup with Dr Bingham and meeting with Dr Marcelino regarding implant removal on Feb 25. Will have MRI the week prior at [place] on Feb 17. Pat verbalized understanding. No further questions. documented in this encounter [facility] 01-06-2024 Note [facility] 01-06-2024 History of Present illness Narrative Diagnosis: 1) Breast cancer. HPI: The patient is a 63-year-old female who has a past medical history significant for hypertension and primary biliary cirrhosis. She is seen by her mems process engineer approximately once a year and she has had stable findings. Most recent liver chemistries performed at [facility] on 01/10/2017 showed a total bilirubin of 0.3 mg/dL with a direct bilirubin of 0.09 mg/dL. The AST was 19 and the ALT was 23. Alkaline phosphatase was 95. CBC at that time was normal with a white count of 8900. No differential. Hemoglobin 12.2 g/dL platelet count 237,000. Coagulation studies showed a normal INR 1.0 with a PT of 13.0 seconds. Evidently she was on a trip to [place] about 2 1/2 years ago when she developed pleuritic right-sided chest pain. She presented to local ER there. She's not sure what radiographic studies were done but she was told that there was a concern she had lung cancer and she was to follow-up when she got back home. Over the last 2 years she's had a number of radiographic studies including CT of the chest as well as PET scan last year that showed no evidence of malignancy. She's had pain under left breast that was attributed to rib fracture with healing. Over the last year there's been a lump in lower left breast thought associated to healing underlying rib fracture. Core needle biopsy performed on 03/29/2017: Left breast, core biopsy: Invasive ductal carcinoma, nuclear grade 2 (1.3 cm in greatest length). ER (clone [id number]) >95%, strong SC (clone 16/1E2) >95%, strong Her-2Neu (clone CB11) 0 There was a spiculated mass at the lower outer left breast measuring 2.7 x 1.8 x 3.5 cm with central clip artifact consistent with the biopsy-proven malignancy. It was in the posterior depth but there was no evidence of chest wall involvement. There were no other abnormal areas of enhancement within the left breast. There were 2 abnormally thickened enhancing lymph nodes high in the left axilla that were suspicious for axillary node metastases. There are also several rounded nodes in the left high subpectoral region with the largest measuring 7 mm in short axis. These were noted to be suspicious. A possible 4 mm in short axis left internal mammary node was also appreciated. Full staging workup including CT scans of the chest, abdomen and pelvis as well as brain MRI and whole-body bone scan shows some mild activity in the distal femur on the right. Plain films showed degenerative changes without any osteoblastic or osteolytic activity. The CT scans disclosed 2 hypodense lesions in the liver that on MRI had signal characteristics consistent with hemangioma. Brain MRI was normal. Previous therapy: 1) Neoadjuvant AC followed by Taxol. 2) Underwent a left nipple sparing mastectomy with left axillary lymph node dissection and left arm reverse axillary mapping on 10/08/2017. This was done in conjunction with a implant and acellular dermal matrix with a lymphatico-venous bypass to the left axilla. 3) Adjuvant radiation to left chest wall/axilla and supraclavicular area completed 01/02/2018. Pathology from 10/08/2017 surgery: 1. Left axillary contents, excision (A) - Four of five lymph nodes, positive for metastatic carcinoma (4/5) with treatment effect. - Extranodal extension is present. - Biopsy clips and changes consistent with prior biopsy sites. 2. Left breast, mastectomy (B) - Fibrous tumor bed with residual invasive ductal carcinoma, histologic grade 1. - Ductal carcinoma in situ, intermediate nuclear grade, solid type. - Biopsy clip and changes consistent with prior biopsy site. - Please see synoptic report. SYNOPTIC REPORT OF [place] PATHOLOGIC FINDINGS LEFT BREAST: BREAST INVASIVE CARCINOMA WORKSHEET Part: A and B Procedure: Total mastectomy (including nipple-sparing and skin-sparing mastectomy) Specimen Laterality: Left Tumor size: Size of largest invasive carcinoma: Greatest dimension of largest focus of invasion >1 mm: 9 mm Tumor Focality: Single focus of invasive carcinoma Histologic Type of Invasive Carcinoma: Invasive carcinoma of no special type (ductal, not otherwise specified) Histologic Grade: Glandular (Acinar) / Tubular Differentiation: Score 2 Nuclear Pleomorphism: Score 2 Mitotic Rate: Score 1 (<=3 mitosis per mm2) Overall Grade: Grade I Ductal Carcinoma In Situ: DCIS is present in specimen DCIS Nuclear Grade: Grade II (intermediate) Tumor Extension: Skin: Not applicable Nipple: Not applicable Skeletal muscle: Not applicable Invasive Carcinoma Margins: Margins uninvolved by invasive carcinoma Distance from closest margin: 2 mm Closest margin: Inferior radial DCIS Margins: Margins uninvolved by DCIS Distance from closest margin: 5 mm Closest margin: Inferior radial Lymph Nodes: Involved by tumor cells Number of lymph nodes with macrometastases (>2 mm): 4 Number of lymph nodes with micrometastases (>0.2 mm to 2 mm and/or >200 cells): 0 Number of lymph nodes with isolated tumor cells (<= 0.2 mm and <= 200 cells): 0 Size of largest metastatic deposit: 8 mm Extranodal extension present: 1.5 mm Number of lymph nodes examined: 5 Treatment Effect: Treatment effect in the breast Treatment effect in the lymph nodes Probable or definite response to presurgical therapy in the invasive carcinoma Probable or definite response to presurgical therapy in metastatic carcinoma Lymph-Vascular Invasion: Present Pathologic Stage Classification (pTNM,AJCC 8th ed) TNM Descriptor(s): y (post- treatment) Primary Tumor (Invasive Carcinoma) (pT): pT1b Regional Lymph Nodes (pN): Modifier: Not applicable Category (pN): pN2a Distant metastasis: Distant Metastasis (pM) Not applicable/Not confirmed pathologically in this case Estrogen & progesterone receptors: Previously performed (HER2) ERBB2 Status: Previously performed Grain Elevator Superintendent Tumor Block: Specify: B3 Residual tumor burden: Tumor bed dimension #1: 8 mm Tumor bed dimension #2: 5 mm Overall tumor cellularity 50% Percentage in situ 3% Comment: Please see [id number] for the results of estrogen and progesterone receptors and HER2 studies. 3) Anastrozole on clinical trial. Stopped 08/2022. Metastatic disease. 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 Was seen by Dr. Bingham for the nodule appreciated on previous exam. Underwent punch biopsy on 07/19/2022. Pathology: Skin, left breast, punch biopsy: -Consistent with metastatic breast adenocarcinoma, see comment. Histologic sections demonstrate a largely unremarkable epidermis overlying a dermis filled with infiltrative cords and nests of pleomorphic epithelioid cells with ductal formation. To better characterize the specimen, ancillary immunohistochemical staining was performed on block A1 at the [facility] and compared to appropriate reactive controls. The epithelioid cells are positive for CK7 and GATA3. These histologic findings are consistent with metastatic breast adenocarcinoma from the patient's known malignancy. Underwent bronchoscopy on 08/14/2022 where lymph node sampling was performed of a 4L lymph node. Pathology: EBUS TRANSBRONCHIAL FINE NEEDLE ASPIRATE, LYMPH NODE - 4L Positive for malignant cells. Metastatic adenocarcinoma consistent with breast primary (see comment). Previous therapy for metastatic disease: 1) Verzenio. Began began 08/24/2022. Stopped due to fatigue and diarrhea. 2) Faslodex. Began 08/23/2022. 3) Ribociclib. Began 11/19. Current therapy: 1) Exemestane (05/13/2023) and everolimus second week April 2023. Was at [facility]. Had PET scan on 05/02. Demonstrated stable appearance of FDG uptake in the soft tissue thickenings along posterior left breast prosthesis and also small skin nodule left anterior breast as compared with outside PET/CT on 01/28. Small right axillary node with FDG avid uptake was noted to be stable. This was thought to be reactive rather metastatic disease. No other FDG avid lesions were observed including mediastinal and/or hilar adenopathy. Presents for ongoing oncologic management. Interim history: Has noticed brittle nails. Fatigue--but that has improved. Otherwise tolerating very well. Blood sugars still run high. Implant feels tighter to her. Tender at top of implant--hard time lying on that side and can hurt when she swings golf club. PMH, medications and allergies personally reviewed by me today. Any changes documented in appropriate section. ROS: Constitutional: Denies episodes of fever and night sweats. Neuro: Denies YOUSIF, vertigo, dizziness and imbalance. HEENT: No recent change in voice, vision or hearing. Resp: See HPI. CVS: See HPI.. GI: Denies dysgeusia. Denies symptoms of stomatitis. Denies dysphagia and odynophagia. Denies reflux. : Denies dysuria or gross hematuria. No symptoms of bladder outlet obstruction. Endo: Denies polyuria and polydipsia. Denies heat and cold intolerance. Musculoskeletal: Improvement in previous musculoskeletal side effects from anastrozole. Derm: Denies rash. Denies jaundice and diffuse pruritis. Heme: Denies unusual bleeding and unexplained bruising. Psych: Normal mood. The sensitive examination was discussed with the Patient or Patient's Authorized Grain Elevator Superintendent. As applicable, any other physician, advance practice provider, medical student, or other health professional student that will be observing or involved in the sensitive examination for educational or training purposes was discussed with the Patient or Authorized Grain Elevator Superintendent. The Patient or Authorized Grain Elevator Superintendent has agreed to proceed with the sensitive examination. (Sensitive examination includes inspection and/or palpation of the breasts, pelvis, prostate and anorectal regions) Svetlana Kong LPN chaperoned. PHYSICAL EXAM: Vitals: Blood pressure 168/96, pulse 92, temperature 36.9 C (98.5 F), temperature source Temporal, weight 74.2 kg (163 lb 8 oz), SpO2 97%. -appearing and in no acute distress. EYES: Sclerae are anicteric bilaterally. LYMPHATIC: There is no palpable cervical or supraclavicular adenopathy. No axillary adenopathy. RESPIRATORY: Inspiratory breath sounds are of normal intensity in all [place]. No rales, wheezes or rhonchi. CARDIOVASCULAR: Rhythm is regular. BREAST: Kasie Lamb LPN chaperoned. Left sided implant remains contracted. No longer able to appreciate the previous BB sized metastases along superior margin of the implant. The dermal lesion at 7 o'clock smaller remains. Skin is mildly hypertrophic but no underlying mass. The scarred tissue in lateral inferior breast fold is again in the internal less prominent and softer than prior exam. ABDOMEN: The abdomen is nondistended. No organomegaly. No tenderness. Extremities: No swelling or edema. SKIN: No jaundice or rash. LABS: PET [facility] on 05/02/2023. Resolution of FDG avid mediastinal adenopathy. Stable right axillary lymph node suspicious for reactive lymph node. Stable FDG uptake in the posterior tissues of the left breast prosthesis as well as skin nodule in the anterior 7 o'clock position of the breast. 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 -KPS is 100%. -PET scan indicated disease left chest wall and mediastinal lymph nodes. MRI brain negative. -Biopsy-proven disease recurrence left chest wall inferior and posterior to implant. -ER positive (99% strong staining intensity), SC positive (2% with strong staining intensity), HER2 2+; nonamplified by FISH testing. 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 -MRI Breast 03/28/2023 demonstrated PD and therapy was rotated to Faslodex and Afinitor. Oncology at [facility] recommended exemestane with Afinitor. -Hyperglycemia from Afinitor. -Reviewed PET scan. Continued mild response. Metabolic CR of the hilar and mediastinal lymph nodes. -Implant is getting more bothersome. Plan: -Referral to endocrinology for management of diabetes. -Continue every 6 month bisphosphonate therapy. -Continue exemestane and everolimus. -PET in about 3 months. (I42.7, T45.1X5A) Chemotherapy-induced cardiomyopathy (HCC) Assessment: -Earlier in her clinical course, patient had otherwise unexplained persistent tachycardia. Echo showed normal EF but I had reviewed with cardiology--there was a 10 percent change in the strain pattern suggestive of early cardiomyopathy. Plan: -Continue Cozaar and follow-up with PCP for management of hypertension. (N17.9) LAXMI (acute kidney injury) (HCC) Assessment: -Initially observed when she was having severe diarrhea from abemaciclib. -Improved after hydration and dose reducing Verzenio. -Persisted on ribociclib. Plan: -Continue to monitor. Portions of this documentation were copied and pasted from previous office visit notes in order to provide a cohesive continuity of the history. The note has been reviewed and edited and updated as necessary. I spent a total of 30 minutes on the date of the service which included preparing to see the patient, [id number] patient care, completing clinical documentation, obtaining and/or reviewing separately obtained history, performing a medically appropriate examination, counseling and educating the patient/family/caregiver, ordering medications, tests, or procedures, communicating with other HCPs (not separately reported), and communicating results to the patient/family/caregiver. Serena Carrasco DO documented in this encounter [facility] 01-02-2024 Telephone encounter Note [phone] RIGHT HIP PAIN NO SCHED FOR PROVIDER PLEASE CLL TO DOROTHEAED/ADVISE LAST SEEN 2021 Please call patient to set up an appointment with Subhash Avila [facility] 01-02-2024 Miscellaneous Notes [phone] RIGHT HIP PAIN NO SCHED FOR PROVIDER PLEASE CLL TO DOROTHEAED/ADVISE LAST SEEN 2021 Please call patient to set up an appointment with Subhash Avila documented in this encounter [facility] 12-30-2023 History of Present illness Narrative RADIOLOGY SERVICE PROGRESS NOTE SERVICE DATE: 12/30/2023 SERVICE TIME: 8:09 AM PATIENT IDENTITY VERIFICATION COMPLETED USING TWO (2) STANDARD IDENTIFIERS: Name and Date of confirmed by patient verbally and Name and Date of confirmed by identification band FALL SCREENING: Has the patient had 2 falls in the last year or 1 fall with injury or currently using an Ambulatory Assistive Device (Walker, Cane, Wheelchair, Crutches, etc.)? No PATIENT GENDER DATA: .female ALLERGIES: Reviewed and unchanged MEDICATIONS REVIEWED: Yes PATIENT RELEVANT IMPLANT DATA REVIEWED: Not Applicable PATIENT PRESENTS WITH AN IMPLANTABLE OR ATTACHED BILLING AND INSURANCE COORDINATOR: No CREATININE: Creatinine Date Value Ref Range Status 11/11/2023 1.47 (H) 0.58 - 0.96 mg/dL Final 09/30/2023 0.90 0.58 - 0.96 mg/dL Final 08/30/2023 0.91 0.58 - 0.96 mg/dL Final Estimated Glomerular Filtration Rate Date Value Ref Range Status 11/11/2023 40 (L) >=60 mL/min/1.73m Final Comment: Estimated Glomerular Filtration Rate (eGFR) is calculated using the 2020 CKD-EPI creatinine equation. This equation utilizes serum creatinine, sex, and age as parameters. The creatinine assay has traceable calibration to isotope dilution-mass spectrometry. Refer to KDIGO guidelines for clinical interpretation. In patients with unstable renal function, e.g. those with acute kidney injury, the eGFR may not accurately reflect actual GFR. eGFR- Date Value Ref Range Status 02/15/2021 >60 Final P.O.C.T. RESULTS: N/A December 30, [address] PERFORMED: No IV SITE: Ambulatory: A peripheral IV was started in the Right antecubital site with a Angio cath: 22 gauge. POST EXAM PIV STATUS: Discontinued PROCEDURE TYPE: NM INJECT: PET/CT BODY SCAN. 10.0 mCi F18 FDG. No other medications given.. ADMINISTRATION TIME: 0757 PATIENT DISCHARGED TO: Ambulatory patient, left [place] department area. A Diagnostic radioactive procedure has taken place, with no further precautions necessary other than routine body substance precautions. More information regarding radiation safety can be found using this link: [email or web address] %[email or web address] SIGNATURE: PATRICIA Hou) PATIENT NAME: Pat Sorto DATE: December 30, 2023 TIME: 8:09 AM PAGER/CONTACT #: documented in this encounter [facility] 12-30-2023 Note HNO ID: [id number] Author: JOSE SCOTT RT (R) Service: Radiology Author Type: Technologist Type: Progress Notes Filed: 12/30/2023 08:10 Note Text: RADIOLOGY SERVICE PROGRESS NOTE SERVICE DATE: 12/30/2023 SERVICE TIME: 8:09 AM PATIENT IDENTITY VERIFICATION COMPLETED USING TWO (2) STANDARD IDENTIFIERS: Name and Date of confirmed by patient verbally and Name and Date of confirmed by identification band FALL SCREENING: Has the patient had 2 falls in the last year or 1 fall with injury or currently using an Ambulatory Assistive Device (Walker, Cane, Wheelchair, Crutches, etc.)? No PATIENT GENDER DATA: .female ALLERGIES: Reviewed and unchanged MEDICATIONS REVIEWED: Yes PATIENT RELEVANT IMPLANT DATA REVIEWED: Not Applicable PATIENT PRESENTS WITH AN IMPLANTABLE OR ATTACHED BILLING AND INSURANCE COORDINATOR: No CREATININE: Creatinine Date Value Ref Range Status 11/11/2023 1.47 (H) 0.58 - 0.96 mg/dL Final 09/30/2023 0.90 0.58 - 0.96 mg/dL Final 08/30/2023 0.91 0.58 - 0.96 mg/dL Final Estimated Glomerular Filtration Rate Date Value Ref Range Status 11/11/2023 40 (L) >=60 mL/min/1.73m? Final Comment: Estimated Glomerular Filtration Rate (eGFR) is calculated using the 2020 CKD-EPI creatinine equation. This equation utilizes serum creatinine, sex, and age as parameters. The creatinine assay has traceable calibration to isotope dilution-mass spectrometry. Refer to KDIGO guidelines for clinical interpretation. In patients with unstable renal function, e.g. those with acute kidney injury, the eGFR may not accurately reflect actual GFR. eGFR- Date Value Ref Range Status 02/15/2021 >60 Final P.O.C.T. RESULTS: N/A December 30, [address] PERFORMED: No IV SITE: Ambulatory: A peripheral IV was started in the Right antecubital site with a Angio cath: 22 gauge. POST EXAM PIV STATUS: Discontinued PROCEDURE TYPE: NM INJECT: PET/CT BODY SCAN. 10.0 mCi F18 FDG. No other medications given.. ADMINISTRATION TIME: 0757 PATIENT DISCHARGED TO: Ambulatory patient, left [place] department area. A Diagnostic radioactive procedure has taken place, with no further precautions necessary other than routine body substance precautions. More information regarding radiation safety can be found using this link: [email or web address] 20Diagnostic%20Nuclear%20Medicine% 20Procedures.pdf SIGNATURE: RT Ameya(R) PATIENT NAME: Pat Sorto DATE: December 30, 2023 TIME: 8:09 AM PAGER/CONTACT #: [facility] 12-02-2023 History of Present illness Narrative Primary Care Pharmacy Visit CC (Reason for Consult): (E11.9) Type 2 diabetes mellitus without complication, unspecified 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 insulin use (HCC) (primary encounter diagnosis) (Z79.899) Medication management Goal(s): A1c <8% per consult Last Collaborating Provider Visit: 07/16/[address] Terence Saha Angelita Sorto is a 63 year old female presenting for follow up visit telephone call. Patient consents to pharmacy collaborative practice agreement. Last Pharmacy Visit: 10/30/23 HPI: Reports doing well Felling better overall, infection has resolved since last visit States BGs are improving but are still up and down, difficult to get a consistent number Is wondering if ivermectin for cancer treatment would be a potential option for her that would allow for less side effects. States had researched on her own and planning to discuss with oncologist, but is wondering if PharmD has any information on benefits vs risks Current DM Medications: Glipizide XL 5 mg twice daily Previously Trialed DM Meds: Ozempic - diarrhea/vomiting Metformin - unable to tolerate Diet Denies any recent changes GLYCEMIC CONTROL: Glucometer present at visit: Yes Hypoglycemia: No SMBGS (Fingersticks) Date Fasting AM Before Dinner 12/01 170 11/29 173 215 11/28 152 11/27 135 11/26 157 11/25 152 11/24 123 11/23 148 11/22 174 187 11/21 138 11/19 108 11/18 154 11/17 179 11/16 137 AVG 150 Past medical history reviewed. ALLERGIES Allergen Reactions Amoxicillin Rash rash arms trunk neck face, itching Chills Current Outpatient Medications Medication Sig Dispense Refill glipiZIDE (GLUCOTROL XL) 5 mg 24 hr tablet Take 2 tablets by mouth daily with breakfast AND 1 tablet daily with dinner. 270 tablet 1 exemestane (AROMASIN) 25 mg tablet Take 1 tablet by mouth once daily. TAKE AFTER A MEAL. 30 tablet 5 LORazepam (ATIVAN) 0.5 mg Take 1 tablet by mouth three times a day as needed for up to 30 days. 90 tablet 0 ONETOUCH ULTRA PLUS TEST strp 1 Each two times a day. E11.65; No insulin 200 Each 3 losartan (COZAAR) 25 mg tablet take 1 tablet by mouth once daily 30 tablet 5 everolimus, antineoplastic, (AFINITOR) 10 mg tablet take 1 tablet once daily 30 tablet 5 Lancets Use with blood glucose test two times a day. Insulin Dep? No 200 Each 3 blood sugar diagnostic (BLOOD GLUCOSE TEST) test strip Use with blood glucose test two times a day. Insulin Dep? No 200 Each 3 aspirin, enteric coated (ASPIRIN, ENTERIC COATED) 81 mg EC tablet Take 81 mg by mouth once daily. pantoprazole DR (PROTONIX) 40 mg tablet Take 40 mg by mouth daily before breakfast. ascorbic acid, vitamin C, (VITAMIN C) 500 mg tablet Take 500 mg by mouth once daily. alpha tocopheryl acetate (VITAMIN E) 400 unit capsule Take 400 Units by mouth once daily. cyanocobalamin (VITAMIN B-12) 1,000 mcg tab Take 500 mcg by mouth once daily. VITAMIN D 50,000 unit capsule 1 capsule one time a week. Ursodiol 500 mg tablet Take 1.5 tablets by mouth twice daily. CALCIUM CARBONATE (CALCIUM 500 ORAL) Take 1 tablet by mouth once daily. No current facility-administered medications for this visit. Pill bottles are not present. Adherence: denies missed doses. Rx coverage: Payor: AN[employer] / Plan: BLUE ACCESS PPO / Product Type: PPO / Medications affordable? Yes PHARMACOTHERAPY PREVENTATIVE MEDS: On LATISHA/ARB: Yes On Statin: No On ASA: Yes EXAM: There were no vitals taken for this visit. Last 3 Encounter BP Readings: Date: BP: 11/11/2023 118/77 10/23/2023 98/62 10/18/2023 145/82 Wt: 74.2 kg (163 lb 8 oz) BMI: 27.42 kg/(m^2) LABS: Lab Results Component Value Date HBA1C 9.1 07/16/2023 HBA1C 6.1 03/11/2023 HBA1C 5.9 02/19/2022 HBA1C 5.6 10/07/2018 HBA1C 5.7 05/20/2018 Glucose 168 11/11/2023 BUN 23 11/11/2023 Creatinine, Whole Blood (iSTAT) 1.47 11/11/2023 Sodium 137 11/11/2023 Potassium 3.8 11/11/2023 Chloride 101 11/11/2023 CO2 24 11/11/2023 Protein, Total 7.0 11/11/2023 Albumin 3.6 11/11/2023 Calcium 9.2 11/11/2023 Alkaline Phosphatase 74 11/11/2023 Bilirubin, Total 0.3 11/11/2023 AST 17 11/11/2023 ALT 9 11/11/2023 Lab Results Component Value Date CHOL 202 11/11/2023 CHOL 167 10/07/2018 LDL 125 11/11/2023 LDL 103 10/07/2018 HDL 27 11/11/2023 HDL 34 10/07/2018 TG 250 11/11/2023 TG 151 10/07/2018 No results found for: UALBCR eGFR-All Other Races (.) Date Value 02/15/2021 59 Estimated Glomerular Filtration Rate (mL/min/1.73m ) Date Value 11/11/2023 40 ASSESSMENT/PLAN: 1. Type 2 diabetes mellitus without complication, unspecified whether fpc insulin use (HCC) - ICD9: 250.00, ICD10: E11.9 - Improving control - Increase glipizide XL 5 mg to 1 tablets every morning and 1 tablet every evening - Blood glucose monitoring on a twice daily schedule - Counseled on healthy diet and regular exercise - Discussed diabetic education issues of hypoglycemic/hyperglycemic symptoms and medication-specific side effects and monitoring - Follow up in 1 month, sooner should any other issues arise. 2. Medication management - ICD9: V58.69, ICD10: Z79.899 Patient inquiring about benefits vs risks of ivermectin for cancer treatment. Recommended discussing with oncologist; however, PharmD to look into any potential interactions, side effects, etc associated with medication, per patient request. Follow Up: Next PCP visit: 03/18/24 Next PharmD visit: 01/01/24 Tatianna Crook PharmD, BCACP Primary Care Clinical Putty Remover documented in this encounter [facility] 12-02-2023 Note [facility] 11-19-2023 History of Present illness Narrative Radiology Service Progress Note PATIENT NAME: Pat Sorto DATE OF SERVICE: November 19, 2023 TIME: 10:53 AM PATIENT IDENTITY VERIFICATION COMPLETED USING TWO (2) IDENTIFIERS: Name and Date of confirmed by patient verbally. FALL SCREENING: Has the patient had 2 falls in the last year or 1 fall with injury or currently using an Ambulatory Assistive Device (Walker, Cane, Wheelchair, Crutches, etc.)? No PATIENT GENDER DATA: Female. status: : No status: NO. PATIENT RELEVANT IMPLANT DATA REVIEWED: Yes PATIENT PRESENTS WITH AN IMPLANTABLE OR ATTACHED BILLING AND INSURANCE COORDINATOR: No RADIOLOGY DEPARTMENT: Ultrasound PERIPHERAL IV DATA: Not applicable SIGNED BY: Luann Clarke RDMS, BRENDEN November 19, 2023 10:53 AM documented in this encounter [facility] 11-19-2023 Note HNO ID: [id number] Author: LUANN CLARKE RT(R) Service: ? Author Type: Technologist Type: Progress Notes Filed: 11/19/2023 10:53 Note Text: Radiology Service Progress Note PATIENT NAME: Pat Sorto DATE OF SERVICE: November 19, 2023 TIME: 10:53 AM PATIENT IDENTITY VERIFICATION COMPLETED USING TWO (2) IDENTIFIERS: Name and Date of confirmed by patient verbally. FALL SCREENING: Has the patient had 2 falls in the last year or 1 fall with injury or currently using an Ambulatory Assistive Device (Walker, Cane, Wheelchair, Crutches, etc.)? No PATIENT GENDER DATA: Female. status: : No status: NO. PATIENT RELEVANT IMPLANT DATA REVIEWED: Yes PATIENT PRESENTS WITH AN IMPLANTABLE OR ATTACHED BILLING AND INSURANCE COORDINATOR: No RADIOLOGY DEPARTMENT: Ultrasound PERIPHERAL IV DATA: Not applicable SIGNED BY: Luann Clarke RDMS, RVDelonte November 19, 2023 10:53 AM [facility] 11-13-2023 Miscellaneous Notes Rx sent Tatianna Crook PharmD, BCACP Primary Care Clinical Putty Remover [facility] [place] calling with request for new script for Glucometer. Patient's test strips were changed to One Touch Ultra 2 and they need glucometer script to match. Pharmacist states okay to order generic meter. Pended. Navya Perez RN documented in this encounter [facility] 11-13-2023 Telephone encounter Note Rx sent Tatianna Crook PharmD, BCACP Primary Care Clinical Putty Remover [facility] Work Phone: 11-13-2023 Telephone encounter Note [facility] [place] calling with request for new script for Glucometer. Patient's test strips were changed to One Touch Ultra 2 and they need glucometer script to match. Pharmacist states okay to order generic meter. Pended. Navya Perez RN [facility] 11-13-2023 Telephone encounter Note Spoke with patient and scheduled. Karyn Muñoz [facility] 11-13-2023 Miscellaneous Notes Spoke with patient and scheduled. Karyn Muñoz PSS- please contact patient to schedule RUQ US. Patient is expecting the call. Svtelana Kong LPN Filed. Please file order. Patient is expecting a call to schedule. Svetlana Kong LPN Urine culture suggests resolving UTI. Since she was having right upper quadrant pain as part of the presentation, recommend ultrasound liver and gallbladder. Please pend order. Diagnosis right upper quadrant pain documented in this encounter [facility] 11-13-2023 Telephone encounter Note PSS- please contact patient to schedule RUQ US. Patient is expecting the call. Svetlana Kong LPN [facility] 11-13-2023 Telephone encounter Note Filed. [facility] 11-13-2023 Telephone encounter Note Please file order. Patient is expecting a call to schedule. Svetlana Kong LPN [facility] 11-12-2023 Telephone encounter Note Urine culture suggests resolving UTI. Since she was having right upper quadrant pain as part of the presentation, recommend ultrasound liver and gallbladder. Please pend order. Diagnosis right upper quadrant pain [facility] 11-11-2023 History of Present illness Narrative Diagnosis: 1) Breast cancer. HPI: The patient is a 63-year-old female who has a past medical history significant for hypertension and primary biliary cirrhosis. She is seen by her mems process engineer approximately once a year and she has had stable findings. Most recent liver chemistries performed at [facility] on 01/10/2017 showed a total bilirubin of 0.3 mg/dL with a direct bilirubin of 0.09 mg/dL. The AST was 19 and the ALT was 23. Alkaline phosphatase was 95. CBC at that time was normal with a white count of 8900. No differential. Hemoglobin 12.2 g/dL platelet count 237,000. Coagulation studies showed a normal INR 1.0 with a PT of 13.0 seconds. Evidently she was on a trip to [place] about 2 1/2 years ago when she developed pleuritic right-sided chest pain. She presented to local ER there. She's not sure what radiographic studies were done but she was told that there was a concern she had lung cancer and she was to follow-up when she got back home. Over the last 2 years she's had a number of radiographic studies including CT of the chest as well as PET scan last year that showed no evidence of malignancy. She's had pain under left breast that was attributed to rib fracture with healing. Over the last year there's been a lump in lower left breast thought associated to healing underlying rib fracture. Core needle biopsy performed on 03/29/2017: Left breast, core biopsy: Invasive ductal carcinoma, nuclear grade 2 (1.3 cm in greatest length). ER (clone [id number]) >95%, strong SC (clone 16/1E2) >95%, strong Her-2Neu (clone CB11) 0 There was a spiculated mass at the lower outer left breast measuring 2.7 x 1.8 x 3.5 cm with central clip artifact consistent with the biopsy-proven malignancy. It was in the posterior depth but there was no evidence of chest wall involvement. There were no other abnormal areas of enhancement within the left breast. There were 2 abnormally thickened enhancing lymph nodes high in the left axilla that were suspicious for axillary node metastases. There are also several rounded nodes in the left high subpectoral region with the largest measuring 7 mm in short axis. These were noted to be suspicious. A possible 4 mm in short axis left internal mammary node was also appreciated. Full staging workup including CT scans of the chest, abdomen and pelvis as well as brain MRI and whole-body bone scan shows some mild activity in the distal femur on the right. Plain films showed degenerative changes without any osteoblastic or osteolytic activity. The CT scans disclosed 2 hypodense lesions in the liver that on MRI had signal characteristics consistent with hemangioma. Brain MRI was normal. Previous therapy: 1) Neoadjuvant AC followed by Taxol. 2) Underwent a left nipple sparing mastectomy with left axillary lymph node dissection and left arm reverse axillary mapping on 10/08/2017. This was done in conjunction with a implant and acellular dermal matrix with a lymphatico-venous bypass to the left axilla. 3) Adjuvant radiation to left chest wall/axilla and supraclavicular area completed 01/02/2018. Pathology from 10/08/2017 surgery: 1. Left axillary contents, excision (A) - Four of five lymph nodes, positive for metastatic carcinoma (4/5) with treatment effect. - Extranodal extension is present. - Biopsy clips and changes consistent with prior biopsy sites. 2. Left breast, mastectomy (B) - Fibrous tumor bed with residual invasive ductal carcinoma, histologic grade 1. - Ductal carcinoma in situ, intermediate nuclear grade, solid type. - Biopsy clip and changes consistent with prior biopsy site. - Please see synoptic report. SYNOPTIC REPORT OF [place] PATHOLOGIC FINDINGS LEFT BREAST: BREAST INVASIVE CARCINOMA WORKSHEET Part: A and B Procedure: Total mastectomy (including nipple-sparing and skin-sparing mastectomy) Specimen Laterality: Left Tumor size: Size of largest invasive carcinoma: Greatest dimension of largest focus of invasion >1 mm: 9 mm Tumor Focality: Single focus of invasive carcinoma Histologic Type of Invasive Carcinoma: Invasive carcinoma of no special type (ductal, not otherwise specified) Histologic Grade: Glandular (Acinar) / Tubular Differentiation: Score 2 Nuclear Pleomorphism: Score 2 Mitotic Rate: Score 1 (<=3 mitosis per mm2) Overall Grade: Grade I Ductal Carcinoma In Situ: DCIS is present in specimen DCIS Nuclear Grade: Grade II (intermediate) Tumor Extension: Skin: Not applicable Nipple: Not applicable Skeletal muscle: Not applicable Invasive Carcinoma Margins: Margins uninvolved by invasive carcinoma Distance from closest margin: 2 mm Closest margin: Inferior radial DCIS Margins: Margins uninvolved by DCIS Distance from closest margin: 5 mm Closest margin: Inferior radial Lymph Nodes: Involved by tumor cells Number of lymph nodes with macrometastases (>2 mm): 4 Number of lymph nodes with micrometastases (>0.2 mm to 2 mm and/or >200 cells): 0 Number of lymph nodes with isolated tumor cells (<= 0.2 mm and <= 200 cells): 0 Size of largest metastatic deposit: 8 mm Extranodal extension present: 1.5 mm Number of lymph nodes examined: 5 Treatment Effect: Treatment effect in the breast Treatment effect in the lymph nodes Probable or definite response to presurgical therapy in the invasive carcinoma Probable or definite response to presurgical therapy in metastatic carcinoma Lymph-Vascular Invasion: Present Pathologic Stage Classification (pTNM,AJCC 8th ed) TNM Descriptor(s): y (post- treatment) Primary Tumor (Invasive Carcinoma) (pT): pT1b Regional Lymph Nodes (pN): Modifier: Not applicable Category (pN): pN2a Distant metastasis: Distant Metastasis (pM) Not applicable/Not confirmed pathologically in this case Estrogen & progesterone receptors: Previously performed (HER2) ERBB2 Status: Previously performed Grain Elevator Superintendent Tumor Block: Specify: B3 Residual tumor burden: Tumor bed dimension #1: 8 mm Tumor bed dimension #2: 5 mm Overall tumor cellularity 50% Percentage in situ 3% Comment: Please see [id number] for the results of estrogen and progesterone receptors and HER2 studies. 3) [facility] Stopped 08/2022. Metastatic disease. 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 Was seen by Dr. Bingham for the nodule appreciated on previous exam. Underwent punch biopsy on 07/19/2022. Pathology: Skin, left breast, punch biopsy: -Consistent with metastatic breast adenocarcinoma, see comment. Histologic sections demonstrate a largely unremarkable epidermis overlying a dermis filled with infiltrative cords and nests of pleomorphic epithelioid cells with ductal formation. To better characterize the specimen, ancillary immunohistochemical staining was performed on block A1 at the [facility] and compared to appropriate reactive controls. The epithelioid cells are positive for CK7 and GATA3. These histologic findings are consistent with metastatic breast adenocarcinoma from the patient's known malignancy. Underwent bronchoscopy on 08/14/2022 where lymph node sampling was performed of a 4L lymph node. Pathology: EBUS TRANSBRONCHIAL FINE NEEDLE ASPIRATE, LYMPH NODE - 4L Positive for malignant cells. Metastatic adenocarcinoma consistent with breast primary (see comment). Previous therapy for metastatic disease: 1) Verzenio. Began began 08/24/2022. Stopped due to fatigue and diarrhea. 2) Faslodex. Began 08/23/2022. 3) Ribociclib. Began 11/19. Current therapy: 1) Exemestane (05/13/2023) and everolimus second week April 2023. Was at [facility]. Had PET scan on 05/02. Demonstrated stable appearance of FDG uptake in the soft tissue thickenings along posterior left breast prosthesis and also small skin nodule left anterior breast as compared with outside PET/CT on 01/28. Small right axillary node with FDG avid uptake was noted to be stable. This was thought to be reactive rather metastatic disease. No other FDG avid lesions were observed including mediastinal and/or hilar adenopathy. Presents for ongoing oncologic management. Interim history: Currently on therapy for UTI. Presented with fever, chills and cloudy urine with some blood. No dysuria. UA convincing for UTI. Given Bactrim x7 days. Fever resolved. But still with bladder symptoms. Now on ciprofloxacin. Bladder symptoms improved, but still present mildly. No further fever/chill. Was on Ozempic. Stopped after 7 weeks due to diarrhea, hives and vomiting for several days after each dose. PMH, medications and allergies personally reviewed by me today. Any changes documented in appropriate section. ROS: Constitutional: Denies episodes of fever and night sweats. Neuro: Denies YOUSIF, vertigo, dizziness and imbalance. HEENT: No recent change in voice, vision or hearing. Resp: See HPI. CVS: See HPI.. GI: Denies dysgeusia. Denies symptoms of stomatitis. Denies dysphagia and odynophagia. Denies reflux. : Denies dysuria or gross hematuria. No symptoms of bladder outlet obstruction. Endo: Denies polyuria and polydipsia. Denies heat and cold intolerance. Musculoskeletal: Improvement in previous musculoskeletal side effects from anastrozole. Derm: Denies rash. Denies jaundice and diffuse pruritis. Heme: Denies unusual bleeding and unexplained bruising. Psych: Normal mood. PHYSICAL EXAM: Vitals: Blood pressure 118/77, pulse 92, temperature 36.9 C (98.4 F), temperature source Temporal, weight 74.2 kg (163 lb 8 oz), SpO2 99%. -appearing and in no acute distress. EYES: Sclerae are anicteric bilaterally. LYMPHATIC: There is no palpable cervical or supraclavicular adenopathy. No axillary adenopathy. RESPIRATORY: Inspiratory breath sounds are of normal intensity in all escobedo. No rales, wheezes or rhonchi. CARDIOVASCULAR: Rhythm is regular. BREAST: Kasie Lamb LPN chaperoned. Left sided implant remains contracted. No longer able to appreciate the previous BB sized metastases along superior margin of the implant. The dermal lesion at 7 o'clock smaller remains. Skin is mildly hypertrophic but no underlying mass. The scarred tissue in lateral inferior breast fold is again in the internal less prominent and softer than prior exam. ABDOMEN: The abdomen is nondistended. No organomegaly. No tenderness. Extremities: No swelling or edema. SKIN: No jaundice or rash. LABS: Latest Ref Rng 11/11/2023 WBC 3.70 - 11.00 k/uL 9.29 RBC 3.90 - 5.20 m/uL 3.38 (L) Hemoglobin 11.5 - 15.5 g/dL 8.7 (L) Hematocrit 36.0 - 46.0 % 27.9 (L) MCV 80.0 - 100.0 fL 82.5 MCH 26.0 - 34.0 pg 25.7 (L) MCHC 30.5 - 36.0 g/dL 31.2 RDW-CV 11.5 - 15.0 % 13.9 Platelet Count 150 - 400 k/uL 318 MPV 9.0 - 12.7 fL 9.3 Neut% % 69.8 Abs Neut (ANC) 1.45 - 7.50 k/uL 6.48 Lymph% % 20.9 Abs Lymph 1.00 - 4.00 k/uL 1.94 Chase% % 7.2 Abs Chase <0.87 k/uL 0.67 Eosin% % 1.1 Abs Eosin <0.46 k/uL 0.10 Baso% % 0.6 Abs Baso <0.11 k/uL 0.06 Immature Gran % % 0.4 IMMATURE GRANS (ABS) <0.10 k/uL 0.04 NRBC /100 WBC 0.0 Absolute nRBC <0.01 k/uL <0.01 DTYPE Auto PET [facility] on 05/02/2023. Resolution of FDG avid mediastinal adenopathy. Stable right axillary lymph node suspicious for reactive lymph node. Stable FDG uptake in the posterior tissues of the left breast prosthesis as well as skin nodule in the anterior 7 o'clock position of the breast. 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 -KPS is 100%. -PET scan indicated disease left chest wall and mediastinal lymph nodes. MRI brain negative. -Biopsy-proven disease recurrence left chest wall inferior and posterior to implant. -ER positive (99% strong staining intensity), SC positive (2% with strong staining intensity), HER2 2+; nonamplified by FISH testing. 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 -MRI Breast 03/28/2023 demonstrated PD and therapy was rotated to Faslodex and Afinitor. At [facility] they recommended exemestane with Afinitor. Changes were made. -Exam today suggest continued response. -Hyperglycemia from Afinitor. -Recent UTI. Symptoms continued after course of Bactrim. Currently on Cipro. No longer having fever or chill. But still having some bladder symptoms. -More anemic but possibly due to recent infection. Recent iron studies showed low normal iron saturation and normal ferritin. Plan: -Continue exemestane and everolimus. -PET in about 2 months. -Check urine culture today. -Recheck CBC in a month. If still anemic then repeat iron and check other hematinics. -Repeat lab work at time of PET in 2 months. (I42.7, T45.1X5A) Chemotherapy-induced cardiomyopathy (HCC) Assessment: -Earlier in her clinical course, patient had otherwise unexplained persistent tachycardia. Echo showed normal EF but I had reviewed with cardiology--there was a 10 percent change in the strain pattern suggestive of early cardiomyopathy. -Blood pressure doing much better. Plan: -Continue Cozaar. (N17.9) LAXMI (acute kidney injury) (HCC) Assessment: -Initially observed when she was having severe diarrhea from abemaciclib. -Improved after hydration and dose reducing Verzenio. -Persisted on ribociclib. Plan: -Continue to monitor. Recent UTI. Symptoms slow to resolve. Plan: -Check urine culture. Portions of this documentation were copied and pasted from previous office visit notes in order to provide a cohesive continuity of the history. The note has been reviewed and edited and updated as necessary. I spent a total of 25 minutes on the date of the service which included preparing to see the patient, [id number] patient care, completing clinical documentation, obtaining and/or reviewing separately obtained history, performing a medically appropriate examination, counseling and educating the patient/family/caregiver, ordering medications, tests, or procedures, communicating with other HCPs (not separately reported), and communicating results to the patient/family/caregiver. Serena Carrasco DO documented in this encounter [facility] 11-06-2023 Telephone encounter Note Rx pended. Svetlana Kong LPN [facility] 11-06-2023 Miscellaneous Notes Rx pended. Svetlana Kong LPN documented in this encounter [facility] 11-04-2023 Telephone encounter Note Detailed message left for patient. [facility] 11-04-2023 Miscellaneous Notes Detailed message left for patient. I agree, her repeat urine still indicates infection. I would like to treat her with cipro for 10 days to ensure we get this resolved. Patient calling she did her follow up urine sample, after completing her antibiotic rx on 10/31/2023. Patient is asking if she needs to be placed on stronger antibiotic? she can see her urine results on my chart, very abnormal results. Patient uses [facility] for her pharmacy. Please advise documented in this encounter [facility] 11-04-2023 Telephone encounter Note I agree, her repeat urine still indicates infection. I would like to treat her with cipro for 10 days to ensure we get this resolved. [facility] 11-04-2023 Telephone encounter Note Patient calling she did her follow up urine sample, after completing her antibiotic rx on 10/31/2023. Patient is asking if she needs to be placed on stronger antibiotic? she can see her urine results on my chart, very abnormal results. Patient uses [facility] for her pharmacy. Please advise [facility] 10-30-2023 History of Present illness Narrative Primary Care Pharmacy Visit CC (Reason for Consult): (E11.9) Type 2 diabetes mellitus without complication, unspecified whether fpc insulin use (HCC) (primary encounter diagnosis) Goal(s): A1c <8% per consult Last Collaborating Provider Visit: 07/16/[address] Terence Stewartkey Sorto is a 63 year old female presenting for follow up visit telephone call. Patient consents to pharmacy collaborative practice agreement. Last Pharmacy Visit: 10/08/23 - plan to hold Ozempic d/t side effects; glipizide increased HPI: Reports doing okay States she has been dealing with a bacterial infection for a little over a week, on last day of antibiotic now. Starting to feel better now Confirmed stopping the Ozempic Has not had much appetite the last few days due to the infection Tolerating higher dose of glipizide recently States has noticed higher BGs in last week or so Current DM Medications: Glipizide XL 5 mg twice daily Previously Trialed DM Meds: Ozempic - diarrhea/vomiting Metformin - unable to tolerate GLYCEMIC CONTROL: Glucometer present at visit: Yes Hypoglycemia: No SMBGS (Fingersticks) Date Fasting AM Before Dinner 10/20 220 10/21 189 10/22 157 233 18 175 10/24 158 10/25 116 10/27 214 10/28 240 10/29 264 AVG 192 Past medical history reviewed. ALLERGIES Allergen Reactions Amoxicillin Rash rash arms trunk neck face, itching Chills Current Outpatient Medications Medication Sig Dispense Refill sulfamethoxazole-trimethoprim (BACTRIM DS) 800-160 mg per tablet Take 1 tablet by mouth two times a day for 7 days. 14 tablet 0 cyclobenzaprine (FLEXERIL) 10 mg tablet Take 1 tablet by mouth three times a day as needed for muscle spasm for up to 12 doses. (Patient not taking: Reported on 10/23/2023) 12 tablet 0 glipiZIDE (GLUCOTROL XL) 5 mg 24 hr tablet Take 1 tablet by mouth two times a day. 60 tablet 2 losartan (COZAAR) 25 mg tablet take 1 tablet by mouth once daily 30 tablet 5 everolimus, antineoplastic, (AFINITOR) 10 mg tablet take 1 tablet once daily 30 tablet 5 ONETOUCH ULTRA PLUS TEST strp 1 Each two times a day. E11.65; No insulin 200 Each 3 Lancets Use with blood glucose test two times a day. Insulin Dep? No 200 Each 3 blood sugar diagnostic (BLOOD GLUCOSE TEST) test strip Use with blood glucose test two times a day. Insulin Dep? No 200 Each 3 cmuycylgfpZPAMF-ctbeea-fblmpqukj (BMX 1:1:1) 1:1:1 liqd Take by mouth every 4 hours as needed (mucositis). Magic mouthwash PRN (Patient not taking: Reported on 10/23/2023) aspirin, enteric coated (ASPIRIN, ENTERIC COATED) 81 mg EC tablet Take 81 mg by mouth once daily. FFLIEXE-IVEOJCCGF-KOPE ORAL Take 1 tablet by mouth once daily. (Patient not taking: Reported on 10/23/2023) exemestane (AROMASIN) 25 mg tablet Take 1 tablet by mouth once daily. TAKE AFTER A MEAL. [address] (PROTONIX) 40 mg tablet Take 40 mg by mouth daily before breakfast. ascorbic acid, vitamin C, (VITAMIN C) 500 mg tablet Take 500 mg by mouth once daily. alpha tocopheryl acetate (VITAMIN E) 400 unit capsule Take 400 Units by mouth once daily. cyanocobalamin (VITAMIN B-12) 1,000 mcg tab Take 500 mcg by mouth once daily. VITAMIN D 50,000 unit capsule 1 capsule one time a week. Ursodiol 500 mg tablet Take 1.5 tablets by mouth twice daily. CALCIUM CARBONATE (CALCIUM 500 ORAL) Take 1 tablet by mouth once daily. No current facility-administered medications for this visit. Pill bottles are not present. Adherence: denies missed doses. Rx coverage: Payor: MAGANEM / Plan: BLUE ACCESS PPO / Product Type: PPO / Medications affordable? Yes PHARMACOTHERAPY PREVENTATIVE MEDS: On LATISHA/ARB: Yes On Statin: No On ASA: Yes EXAM: There were no vitals taken for this visit. Last 3 Encounter BP Readings: Date: BP: 10/23/2023 98/62 10/18/2023 145/82 08/05/2023 149/78 Wt: 74.9 kg (165 lb 1.6 oz) BMI: 27.69 kg/(m^2) LABS: Lab Results Component Value Date HBA1C 9.1 07/16/2023 HBA1C 6.1 03/11/2023 HBA1C 5.9 02/19/2022 HBA1C 5.6 10/07/2018 HBA1C 5.7 05/20/2018 Glucose 119 09/30/2023 BUN 16 09/30/2023 Creatinine, Whole Blood (iSTAT) 0.90 09/30/2023 Sodium 141 09/30/2023 Potassium 3.6 09/30/2023 Chloride 106 09/30/2023 CO2 26 09/30/2023 Protein, Total 6.5 09/30/2023 Albumin 3.6 09/30/2023 Calcium 9.3 09/30/2023 Alkaline Phosphatase 57 09/30/2023 Bilirubin, Total 0.2 09/30/2023 AST 20 09/30/2023 ALT 13 09/30/2023 Lab Results Component Value Date CHOL 237 08/08/2023 CHOL 167 10/07/2018 LDL 156 08/08/2023 LDL 103 10/07/2018 HDL 35 08/08/2023 HDL 34 10/07/2018 TG 230 08/08/2023 TG 151 10/07/2018 No results found for: UALBCR eGFR-All Other Races (.) Date Value 02/15/2021 59 Estimated Glomerular Filtration Rate (mL/min/1.73m ) Date Value 09/30/2023 72 ASSESSMENT/PLAN: 1. Type 2 diabetes mellitus without complication, unspecified whether fpc insulin use (HCC) - ICD9: 250.00, ICD10: E11.9 - Worsening control, likely due to recent infection. Previously unable to tolerate Ozempic. Will reassess glycemic control at next visit to determine if further medication adjustments necessary. - Continue current medications - Blood glucose monitoring on a twice daily schedule - Counseled on healthy diet and regular exercise - Follow up in 1 month, sooner should any other issues arise. Follow Up: Next PCP visit: 03/18/24 Next PharmD visit: 11/26/23 Tatianna Crook, PharmD, BCACP Primary Care Clinical Putty Remover documented in this encounter [facility] 10-23-2023 History of Present illness Narrative SUBJECTIVE Pat Sorto is a 63 year old female here today for acute concern. Chief Complaint Patient presents with: Fever: X 3 days, has chills, headache x 3 days, and cloudy urine x 1 month with frequency in the evenings, denies pain or hematuria, HPI Pat Sorto is a 63 year old female. She is an established patient of Jacinta Rivas MD. Here today for acute concerns of fever, chills, headache, cloudy urine and frequency. Onset for the fever and chills and headache was 3 days ago but the cloudy urine and frequency has been on going for a month. She is just not feeling well. Her medications were reviewed today and her list is now up to date. Medications Current Outpatient Medications Medication Sig glipiZIDE (GLUCOTROL XL) 5 mg 24 hr tablet Take 1 tablet by mouth two times a day. losartan (COZAAR) 25 mg tablet take 1 tablet by mouth once daily everolimus, antineoplastic, (AFINITOR) 10 mg tablet take 1 tablet once daily ONETOUCH ULTRA PLUS TEST strp 1 Each two times a day. E11.65; No insulin Lancets Use with blood glucose test two times a day. Insulin Dep? No blood sugar diagnostic (BLOOD GLUCOSE TEST) test strip Use with blood glucose test two times a day. Insulin Dep? No aspirin, enteric coated (ASPIRIN, ENTERIC COATED) 81 mg EC tablet Take 81 mg by mouth once daily. exemestane (AROMASIN) 25 mg tablet Take 1 tablet by mouth once daily. TAKE AFTER A MEAL. pantoprazole DR (PROTONIX) 40 mg tablet Take 40 mg by mouth daily before breakfast. ascorbic acid, vitamin C, (VITAMIN C) 500 mg tablet Take 500 mg by mouth once daily. alpha tocopheryl acetate (VITAMIN E) 400 unit capsule Take 400 Units by mouth once daily. cyanocobalamin (VITAMIN B-12) 1,000 mcg tab Take 500 mcg by mouth once daily. VITAMIN D 50,000 unit capsule 1 capsule one time a week. Ursodiol 500 mg tablet Take 1.5 tablets by mouth twice daily. CALCIUM CARBONATE (CALCIUM 500 ORAL) Take 1 tablet by mouth once daily. sulfamethoxazole-trimethoprim (BACTRIM DS) 800-160 mg per tablet Take 1 tablet by mouth two times a day for 7 days. cyclobenzaprine (FLEXERIL) 10 mg tablet Take 1 tablet by mouth three times a day as needed for muscle spasm for up to 12 doses. (Patient not taking: Reported on 10/23/2023) xxkocchtdsSYKRU-zbsapr-snnztjkco (BMX 1:1:1) 1:1:1 liqd Take by mouth every 4 hours as needed (mucositis). Magic mouthwash PRN (Patient not taking: Reported on 10/23/2023) AWWJLRC-ADFBALAHE-YRSO ORAL Take 1 tablet by mouth once daily. (Patient not taking: Reported on 10/23/2023) No current facility-administered medications for this visit. ALLERGIES Allergen Reactions Amoxicillin Rash rash arms trunk neck face, itching Chills ACTIVE PROBLEM LIST Lymphedema of Left Arm - 07/15/2023 Dehydration - 10/30/2022 Functional Diarrhea - 09/20/2022 Metastasis to Mediastinal Lymph Node (Hcc) - 08/16/2022 Class 1 Obesity Due to Excess Calories With Serious Comorbidity and Body Mass Index (Bmi) of 32.0 to 32.9 in Adult - 08/09/2022 Carcinoma of Left Breast Metastatic to Skin (Hcc) - 08/01/2022 Status Post Right Hip Replacement - 06/02/2019 Lumbar Degenerative Disc Disease - 06/02/2019 Primary Localized Osteoarthritis of Right Hip - 03/20/2019 Total Knee Replacement Status, Left - 02/23/2019 History of Radiation Therapy - 08/13/2018 Hypertension - 04/22/2018 Examination of Participant in Clinical Trial - 01/27/2018 Axillary Pain, Left - 11/21/2017 Musculoskeletal Chest Pain - 11/21/2017 Primary Biliary Cirrhosis (Hcc) - 09/24/2017 Chemotherapy-Induced Cardiomyopathy (Hcc) - 08/19/2017 Chemotherapy-Induced Neuropathy (Hcc) - 08/19/2017 Malignant Neoplasm of Left Female Breast (Hcc) - 08/15/2017 Comment: Added automatically from request for surgery [id number] Stomatitis and Mucositis - 06/28/2017 Antineoplastic Chemotherapy Induced Anemia - 06/12/2017 Malignant Neoplasm of Lower-Outer Quadrant of Left Breast of Female, Estrogen Receptor Positive (Hcc) - 04/19/2017 Metastatic Cancer to Axillary Lymph Nodes (Hcc) - 04/19/2017 Social History Tobacco Use Smoking status: Never Smokeless tobacco: Never Vaping Use Vaping Use: Never used Substance Use Topics Alcohol use: Yes Comment: occasional Drug use: No Review of Systems Respiratory: Negative. Cardiovascular: Negative. Genitourinary: Positive for dysuria and frequency. OBJECTIVE BP 98/62 Pulse 120 Temp 100.4 Resp 16 Wt 165 lb 1.6 oz (74.9kg) SpO2 97% Physical Exam Vitals and nursing note reviewed. Constitutional: General: She is awake. She is not in acute distress. Appearance: Normal appearance. She is well-developed and well-groomed. She is not ill-appearing, toxic-appearing or diaphoretic. HENT: Head: Normocephalic. Right Ear: External ear normal. Left Ear: External ear normal. Nose: Nose normal. Eyes: General: Vision grossly intact. Conjunctiva/sclera: Conjunctivae normal. Pupils: Pupils are equal, round, and reactive to light. Neck: Vascular: No JVD. Trachea: Trachea normal. Pulmonary: Effort: Pulmonary effort is normal. No accessory muscle usage, prolonged expiration or respiratory distress. Musculoskeletal: Cervical back: Neck supple. Skin: General: Skin is warm and dry. Capillary Refill: Capillary refill takes less than 2 seconds. Neurological: General: No focal deficit present. Mental Status: She is alert and oriented to person, place, and time. Mental status is at baseline. Psychiatric: Attention and Perception: Attention and perception normal. Mood and Affect: Mood and affect normal. Speech: Speech normal. Behavior: Behavior normal. Behavior is cooperative. Thought Content: Thought content normal. Cognition and Memory: Cognition and memory normal. Judgment: Judgment normal. ASSESSMENT/PLAN: 1. Acute cystitis with hematuria - ICD9: 595.0, ICD10: N30.01 Start Bactrim for x1 week, repeat dip to ensure resolution of hematuria with treatment of infection. Discussed if symptoms worsen then to seek eval in ER. - UA DIP, URINE (POC) - SULFAMETHOXAZOLE 800 MG-TRIMETHOPRIM 160 MG TABLET - URINALYSIS, WITH MICROSCOPIC Portions of this note have been entered by ancillary staff. I have reviewed and when necessary edited, so that they are an adequate record of my encounter with this patient Please note that parts of this document were created using voice recognition software and therefore may contain grammatical errors. Patient verbalizes understanding of instructions from today's visit and in agreement with treatment plan. Questions answered. Agrees to call the office if questions, concerns of issues with acute symptoms not improving or if they worsen. See diagnoses and orders for additional plan(s). Allergies and medications were reviewed, list was updated, and refills given if needed. Past medical, surgical, social, and family history reviewed and updated as appropriate. Encouraged proper diet & exercise as well as compliance with taking medications. Age-appropriate health preventative measures were discussed. Return if symptoms worsen or fail to improve, for Keep next scheduled appointment.. Lisbet Pizano APRN-SONIDO documented in this encounter [facility] 10-23-2023 Telephone encounter Note Patient calls and states that for the past couple of days she has had fever and chills. Patient also reports that she has had a headache and that her urine is cloudy. Patient states that she has been dizzy at times and is worried about becoming dehydrated. Patient asking if she should get labs done? Advised patient that she needs to set up appointment for provider to evaluated. Patient scheduled today at 1 pm with Rosa. Karyn Truong RN [facility] 10-23-2023 Miscellaneous Notes Patient calls and states that for the past couple of days she has had fever and chills. Patient also reports that she has had a headache and that her urine is cloudy. Patient states that she has been dizzy at times and is worried about becoming dehydrated. Patient asking if she should get labs done? Advised patient that she needs to set up appointment for provider to evaluated. Patient scheduled today at 1 pm with Rosa. Karyn Truong RN documented in this encounter [facility] 10-18-2023 History of Present illness Narrative This note was created using [employer]. Subjective Pat Sorto is a 63 year old female. HPI Pt has occaisonal flares of neck pain She denies any known trauma. She thinks she may have slept on it wrong. Review of Systems Musculoskeletal: Positive for myalgias and neck pain. Objective BP 145/82 Pulse 83 Temp 36.8 C (98.3 F) Resp 20 Wt 76 kg (167 lb 8.8 oz) SpO2 99% BMI 28.10 kg/m Physical Exam Vitals and nursing note reviewed. Constitutional: General: She is not in acute distress. Appearance: Normal appearance. She is not ill-appearing. HENT: Head: Normocephalic. Mouth/Throat: Mouth: Mucous membranes are moist. Eyes: Conjunctiva/sclera: Conjunctivae normal. Neck: Comments: Tenderness over the base of the neck extending into the right trapezius muscle. No specific cervical vertebral tenderness Cardiovascular: Rate and Rhythm: Normal rate and regular rhythm. Pulmonary: Effort: Pulmonary effort is normal. Breath sounds: Normal breath sounds. Musculoskeletal: General: Normal range of motion. Cervical back: Normal range of motion. Skin: General: Skin is warm and dry. Neurological: General: No focal deficit present. Mental Status: She is alert. Psychiatric: Mood and Affect: Mood normal. Behavior: Behavior normal. Assessment and Plan ASSESSMENT/PLAN: 1. Neck strain, initial encounter - ICD9: 847.0, ICD10: S16.1XXA Patient's exam does seem consistent with a strain of the muscles of the neck and right trapezius region. As she is diabetic no steroids will be given but she was given a short prescription for Flexeril. She was instructed to slowly resume activities as tolerated and use intermittent warm compresses for relief. - CYCLOBENZAPRINE 10 MG TABLET Severino Sauer APRN.PLATEN GRINDER documented in this encounter [facility] 10-08-2023 History of Present illness Narrative Primary Care Pharmacy Visit CC (Reason for Consult): (E11.9) Type 2 diabetes mellitus without complication, unspecified 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 insulin use (HCC) (primary encounter diagnosis) Goal(s): A1c <8% per consult Last Collaborating Provider Visit: 07/16/[address] Terence Saha Angelita Sorto is a 63 year old female presenting for follow up visit telephone call. Patient consents to pharmacy collaborative practice agreement. Last Pharmacy Visit: 09/05/23 - Ozempic increased to 0.5 mg weekly HPI: Reports she has not been tolerating the Ozempic well lately. Thinks she's having a reaction to the Ozempic, starts to feel queasy and flushed, with stomach gurgling and diarrhea/vomiting and then gets a rash afterwards. Has noticed this same pattern with each injection, since increasing to the 0.5 mg dose. The first time it happened was a couple days after dose, then next time happened same day, then happened later in the week. Has had same kind of symptoms, even with lower dose this past week Went back to the 0.25 this last week when she refilled prescription States these side effects cause her to get dehydrated and it takes a couple days to recover from it Would like to hold off on continuing Ozempic for now Current DM Medications: Glipizide XL 5 mg once daily Ozempic 0.5 mg once weekly on Previously Trialed DM Meds: Metformin - unable to tolerate GLYCEMIC CONTROL: Glucometer present at visit: Yes Hypoglycemia: No SMBGS (Fingersticks) Date Fasting AM Bedtime 10/07 150 7/ 124 93 94 134 123 86 139 96 119 97 105 135 AVG 121 95 Past medical history reviewed. ALLERGIES Allergen Reactions Amoxicillin Rash rash arms trunk neck face, itching Chills Current Outpatient Medications Medication Sig Dispense Refill losartan (COZAAR) 25 mg tablet take 1 tablet by mouth once daily 30 tablet 5 everolimus, antineoplastic, (AFINITOR) 10 mg tablet take 1 tablet once daily 30 tablet 5 LORazepam (ATIVAN) 0.5 mg Take 1 tablet by mouth three times a day as needed for up to 30 days. 90 tablet 0 GetOutfittedUCH ULTRA PLUS TEST strp 1 Each two times a day. E11.65; No insulin 200 Each 3 Lancets Use with blood glucose test two times a day. Insulin Dep? No 200 Each 3 semaglutide (OZEMPIC) 0.25 mg or 0.5 mg (2 mg/3 mL) pen Inject 0.25 mg subcutaneously one time a week for 28 days, THEN 0.5 mg one time a week. 3 mL 1 glipiZIDE (GLUCOTROL XL) 5 mg 24 hr tablet Take 1 tablet by mouth once daily. 30 tablet 2 blood sugar diagnostic (BLOOD GLUCOSE TEST) test strip Use with blood glucose test two times a day. Insulin Dep? No 200 Each 3 qojbiptgftIYTHV-ogdqca-gpmxenszh (BMX 1:1:1) 1:1:1 liqd Take by mouth every 4 hours as needed (mucositis). Magic mouthwash PRN aspirin, enteric coated (ASPIRIN, ENTERIC COATED) 81 mg EC tablet Take 81 mg by mouth once daily. KWPWHTY-CCACUDCJG-TMKZ ORAL Take 1 tablet by mouth once daily. (Patient not taking: Reported on 07/18/2023) exemestane (AROMASIN) 25 mg tablet Take 1 tablet by mouth once daily. TAKE AFTER A MEAL. [address] (PROTONIX) 40 mg tablet Take 40 mg by mouth daily before breakfast. ascorbic acid, vitamin C, (VITAMIN C) 500 mg tablet Take 500 mg by mouth once daily. alpha tocopheryl acetate (VITAMIN E) 400 unit capsule Take 400 Units by mouth once daily. cyanocobalamin (VITAMIN B-12) 1,000 mcg tab Take 500 mcg by mouth once daily. VITAMIN D 50,000 unit capsule 1 capsule one time a week. Ursodiol 500 mg tablet Take 1.5 tablets by mouth twice daily. CALCIUM CARBONATE (CALCIUM 500 ORAL) Take 1 tablet by mouth once daily. No current facility-administered medications for this visit. Pill bottles are not present. Adherence: denies missed doses. Rx coverage: Payor: ANTHEM / Plan: BLUE ACCESS PPO / Product Type: PPO / Medications affordable? Yes PHARMACOTHERAPY PREVENTATIVE MEDS: On LATISHA/ARB: Yes On Statin: No On ASA: Yes EXAM: There were no vitals taken for this visit. Last 3 Encounter BP Readings: Date: BP: 08/05/2023 149/78 07/16/2023 122/86 07/15/2023 [not assessed today[ Wt: 82.6 kg (182 lb) BMI: 30.52 kg/(m^2) LABS: Lab Results Component Value Date HBA1C 9.1 07/16/2023 HBA1C 6.1 03/11/2023 HBA1C 5.9 02/19/2022 HBA1C 5.6 10/07/2018 HBA1C 5.7 05/20/2018 Glucose 119 09/30/2023 BUN 16 09/30/2023 Creatinine, Whole Blood (iSTAT) 0.90 09/30/2023 Sodium 141 09/30/2023 Potassium 3.6 09/30/2023 Chloride 106 09/30/2023 CO2 26 09/30/2023 Protein, Total 6.5 09/30/2023 Albumin 3.6 09/30/2023 Calcium 9.3 09/30/2023 Alkaline Phosphatase 57 09/30/2023 Bilirubin, Total 0.2 09/30/2023 AST 20 09/30/2023 ALT 13 09/30/2023 Lab Results Component Value Date CHOL 237 08/08/2023 CHOL 167 10/07/2018 LDL 156 08/08/2023 LDL 103 10/07/2018 HDL 35 08/08/2023 HDL 34 10/07/2018 TG 230 08/08/2023 TG 151 10/07/2018 No results found for: UALBCR eGFR-All Other Races (.) Date Value 02/15/2021 59 Estimated Glomerular Filtration Rate (mL/min/1.73m ) Date Value 09/30/2023 72 ASSESSMENT/PLAN: 1. Type 2 diabetes mellitus without complication, unspecified whether fpc insulin use (HCC) - ICD9: 250.00, ICD10: E11.9 - Improving control - Hold Ozempic for now (may consider retrial once symptoms resolve/retrial of different GLP-1RA) - Increase glipizide XL to 5 mg twice daily - Blood glucose monitoring on a twice daily schedule - Counseled on healthy diet and regular exercise - Discussed diabetic education issues of diabetes complications and monitoring required, hypoglycemic/hyperglycemic symptoms, and medication-specific side effects and monitoring - Follow up in 3 weeks, sooner should any other issues arise. - Due for A1c ~10/15/23 Follow Up: Next PCP visit: 03/18/24 Next PharmD visit: 10/30/23 Tatianna Crook, PharmD, BCACP Primary Care Clinical Putty Remover documented in this encounter [facility] 09-11-2023 Telephone encounter Note Pathology results requested from Dr. Del Cid's office. Svetlana Kong LPN [facility] 09-11-2023 Miscellaneous Notes Pathology results requested from Dr. Del Cid's office. Svetlana Kong LPN documented in this encounter [facility] 09-05-2023 History of Present illness Narrative Primary Care Pharmacy Visit CC (Reason for Consult): (E11.9) Type 2 diabetes mellitus without complication, unspecified 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 insulin use (HCC) (primary encounter diagnosis) Goal(s): A1c <8% Last Collaborating Provider Visit: 07/16/[address] Terence Saha Angelita Sorto is a 63 year old female presenting for follow up visit in person. Patient consents to pharmacy collaborative practice agreement. Last Pharmacy Visit: 08/13/23 - Ozempic started HPI: Reports doing well Confirmed starting the Ozempic, having some constipation but it's tolerable Has had 3 doses of the 0.25 mg so far Current DM Medications: Glipizide XL 5 mg once daily Ozempic 0.25 mg once weekly on Previously Trialed DM Meds: Metformin - unable to tolerate Diet Denies any recent changes, other than decreased appetite GLYCEMIC CONTROL: Glucometer present at visit: Yes Hypoglycemia: No SMBGS (Fingersticks) BGs 178 164 149 169 173 186 187 115 181 AVG 166 Past medical history reviewed. ALLERGIES Allergen Reactions Amoxicillin Rash rash arms trunk neck face, itching Chills Current Outpatient Medications Medication Sig Dispense Refill semaglutide (OZEMPIC) 0.25 mg or 0.5 mg (2 mg/3 mL) pen Inject 0.25 mg subcutaneously one time a week for 28 days, THEN 0.5 mg one time a week. 3 mL 1 LORazepam (ATIVAN) 0.5 mg take 1 tablet by mouth three times a day if needed for up to 30 DAYS 90 tablet 0 ONETOUCH ULTRA PLUS TEST strp 1 Each two times a day. And as needed for symptoms of sugars too high or too low. Diagnosis: E11.65, Insulin: No 200 Each 3 Lancets (ONETOUCH ULTRASOFT LANCETS) Use with blood glucose test two times a day. Insulin Dep? No E11.65 200 Each 3 glipiZIDE (GLUCOTROL XL) 5 mg 24 hr tablet Take 1 tablet by mouth once daily. 30 tablet 2 blood sugar diagnostic (BLOOD GLUCOSE TEST) test strip Use with blood glucose test two times a day. Insulin Dep? No 200 Each 3 nmwjlwxkhyLOOPF-vblqpa-gpwqgjiiu (BMX 1:1:1) 1:1:1 liqd Take by mouth every 4 hours as needed (mucositis). Magic mouthwash PRN aspirin, enteric coated (ASPIRIN, ENTERIC COATED) 81 mg EC tablet Take 81 mg by mouth once daily. DDPGBQO-YAHORPWBW-LHPP ORAL Take 1 tablet by mouth once daily. (Patient not taking: Reported on 07/18/2023) exemestane (AROMASIN) 25 mg tablet Take 1 tablet by mouth once daily. TAKE AFTER A MEAL. 30 tablet 5 losartan (COZAAR) 25 mg tablet Take 1 tablet by mouth once daily. 30 tablet 5 everolimus, antineoplastic, (AFINITOR) 10 mg tablet Take 1 tablet (10 mg) by mouth once daily. [address] (PROTONIX) 40 mg tablet Take 40 mg by mouth daily before breakfast. ascorbic acid, vitamin C, (VITAMIN C) 500 mg tablet Take 500 mg by mouth once daily. alpha tocopheryl acetate (VITAMIN E) 400 unit capsule Take 400 Units by mouth once daily. cyanocobalamin (VITAMIN B-12) 1,000 mcg tab Take 500 mcg by mouth once daily. VITAMIN D 50,000 unit capsule 1 capsule one time a week. Ursodiol 500 mg tablet Take 1.5 tablets by mouth twice daily. CALCIUM CARBONATE (CALCIUM 500 ORAL) Take 1 tablet by mouth once daily. No current facility-administered medications for this visit. Pill bottles are not present. Adherence: denies missed doses. Rx coverage: Payor: MAGAN / Plan: BLUE ACCESS PPO / Product Type: PPO / Medications affordable? Yes PHARMACOTHERAPY PREVENTATIVE MEDS: On LATISHA/ARB: Yes On Statin: No On ASA: Yes EXAM: There were no vitals taken for this visit. Last 3 Encounter BP Readings: Date: BP: 08/05/2023 149/78 07/16/2023 122/86 07/15/2023 [not assessed today[ Wt: 82.6 kg (182 lb) BMI: 30.52 kg/(m^2) LABS: Lab Results Component Value Date HBA1C 9.1 07/16/2023 HBA1C 6.1 03/11/2023 HBA1C 5.9 02/19/2022 HBA1C 5.6 10/07/2018 HBA1C 5.7 05/20/2018 Glucose 166 08/30/2023 BUN 17 08/30/2023 Creatinine, Whole Blood (iSTAT) 0.91 08/30/2023 Sodium 138 08/30/2023 Potassium 3.7 08/30/2023 Chloride 103 08/30/2023 CO2 27 08/30/2023 Protein, Total 7.2 08/30/2023 Albumin 3.9 08/30/2023 Calcium 9.6 08/30/2023 Alkaline Phosphatase 66 08/30/2023 Bilirubin, Total 0.2 08/30/2023 AST 22 08/30/2023 ALT 14 08/30/2023 Lab Results Component Value Date CHOL 237 08/08/2023 CHOL 167 10/07/2018 LDL 156 08/08/2023 LDL 103 10/07/2018 HDL 35 08/08/2023 HDL 34 10/07/2018 TG 230 08/08/2023 TG 151 10/07/2018 No results found for: UALBCR eGFR-All Other Races (.) Date Value 02/15/2021 59 Estimated Glomerular Filtration Rate (mL/min/1.73m ) Date Value 08/30/2023 71 ASSESSMENT/PLAN: 1. Type 2 diabetes mellitus without complication, unspecified 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 insulin use (HCC) - ICD9: 250.00, ICD10: E11.9 - Improving control - Increase Ozempic to 0.5 mg once weekly after 4th dose of 0.25 mg this week - Continue glipizide XL 5 mg daily - Blood glucose monitoring on a twice daily schedule - Counseled on healthy diet and regular exercise - Discussed diabetic education issues of hypoglycemic/hyperglycemic symptoms and medication-specific side effects and monitoring - Follow up in 6 weeks, sooner should any other issues arise. - Due for A1c ~10/15/23 Follow Up: Next PCP visit: 03/18/24 Next PharmD visit: 10/08/23 Tatianna Crook PharmD Primary Care Clinical Putty Remover I spent a total of 30 minutes on the date of the service which included preparing to see the patient, xcng-[id number] patient care, completing clinical documentation, counseling and educating the patient/family/caregiver, and ordering medications, tests, or procedures. documented in this encounter [facility] 08-28-2023 Telephone encounter Note Referral faxed and confirmation scanned into [employer]. Karyn Muñoz [facility] 08-28-2023 Miscellaneous Notes Referral faxed and confirmation scanned into [employer]. Karyn Muñoz DX: evaluation in a patient undergoing therapy with cardiotoxic agents Please make sure echo reports, last OV note and a copy of this phone note are sent with referral. Thank you. Svetlana Kong LPN Spoke with patient to schedule. First available cardiology appointment with [facility] isn't until April 2024. Patient requested appointment with [facility]. Please advise on specific diagnosis for the referral so it can be included in the fax to [facility]. Karyn Muñoz Patient is aware of all information. PSS- please contact patient to assist in scheduling with cardiology; she is willing to see someone here or [facility]. Svetlana Kong LPN Her echocardiogram essentially shows stable findings. Mild decrease in heart pumping action when compared to last echo in 2018, but currently the same when compared to echo in December 2017. However given her history of the heart issue from previous chemotherapy, I would like her to see cardiology to make sure we are managing her blood pressure and cardiac issues appropriately. Serena Carrasco DO documented in this encounter [facility] 08-28-2023 Telephone encounter Note DX: evaluation in a patient undergoing therapy with cardiotoxic agents Please make sure echo reports, last OV note and a copy of this phone note are sent with referral. Thank you. Svetlana Kong LPN [facility] 08-28-2023 Telephone encounter Note Spoke with patient to schedule. First available cardiology appointment with [facility] isn't until April 2024. Patient requested appointment with [facility]. Please advise on specific diagnosis for the referral so it can be included in the fax to [facility]. Krayn Muñoz [facility] 08-28-2023 Telephone encounter Note Patient is aware of all information. PSS- please contact patient to assist in scheduling with cardiology; she is willing to see someone here or [facility]. Svetlana Kong LPN [facility] 08-27-2023 Telephone encounter Note Her echocardiogram essentially shows stable findings. Mild decrease in heart pumping action when compared to last echo in 2018, but currently the same when compared to echo in December 2017. However given her history of the heart issue from previous chemotherapy, I would like her to see cardiology to make sure we are managing her blood pressure and cardiac issues appropriately. Serena Carrasco DO [facility] 08-26-2023 Telephone encounter Note Pt. Notified of results, voiced understanding. Kasie Lamb LPN [facility] 08-26-2023 Miscellaneous Notes Pt. Notified of results, voiced understanding. Kasie Lamb LPN Good news. Can let her know the PET scan shows continued response to the cancer. documented in this encounter [facility] 08-25-2023 Telephone encounter Note Good news. Can let her know the PET scan shows continued response to the cancer. [facility] 08-19-2023 History of Present illness Narrative RADIOLOGY SERVICE PROGRESS NOTE SERVICE DATE: 08/19/2023 SERVICE TIME: 7:21 AM PATIENT IDENTITY VERIFICATION COMPLETED USING TWO (2) STANDARD IDENTIFIERS: Name and Date of confirmed by patient verbally FALL SCREENING: Has the patient had 2 falls in the last year or 1 fall with injury or currently using an Ambulatory Assistive Device (Walker, Cane, Wheelchair, Crutches, etc.)? No PATIENT GENDER DATA: .female ALLERGIES: NA MEDICATIONS REVIEWED: Not applicable PATIENT RELEVANT IMPLANT DATA REVIEWED: Not Applicable PATIENT PRESENTS WITH AN IMPLANTABLE OR ATTACHED BILLING AND INSURANCE COORDINATOR: No CREATININE: Creatinine Date Value Ref Range Status 08/05/2023 0.86 0.58 - 0.96 mg/dL Final 07/05/2023 0.96 0.58 - 0.96 mg/dL Final 06/03/2023 1.14 (H) 0.58 - 0.96 mg/dL Final Estimated Glomerular Filtration Rate Date Value Ref Range Status 08/05/2023 76 >=60 mL/min/1.73m Final Comment: Estimated Glomerular Filtration Rate (eGFR) is calculated using the 2020 CKD-EPI creatinine equation. This equation utilizes serum creatinine, sex, and age as parameters. The creatinine assay has traceable calibration to isotope dilution-mass spectrometry. Refer to KDIGO guidelines for clinical interpretation. In patients with unstable renal function, e.g. those with acute kidney injury, the eGFR may not accurately reflect actual GFR. eGFR- Date Value Ref Range Status 02/15/2021 >60 Final P.O.C.T. RESULTS: N/A August 19, [address] PERFORMED: No IV SITE: Ambulatory: NM only - direct IV injection in the Right antecubital site POST EXAM PIV STATUS: Discontinued PROCEDURE TYPE: NM INJECT: PET/CT BODY SCAN. 8.5 mCi F18 FDG. No other medications given.. ADMINISTRATION TIME: 712 PATIENT DISCHARGED TO: Ambulatory patient, left NM department area. A Diagnostic radioactive procedure has taken place, with no further precautions necessary other than routine body substance precautions. More information regarding radiation safety can be found using this link: [email or web address] SIGNATURE: RT Deonna(Alis) PATIENT NAME: Pat Sorto DATE: August 19, 2023 TIME: 7:21 AM PAGER/CONTACT #: documented in this encounter [facility] 08-14-2023 Telephone encounter Note Patient returned call and scheduled. Rea Liang [facility] 08-14-2023 Miscellaneous Notes Patient returned call and scheduled. Rea Liang Fasting Lipid with QMO CBC/CMP scheduled on 8.5 as directed. Left message for patient to return call. When patient calls, please advise below and schedule QMO CBC/CMP and follow up w/ Dr. Carrasco/Kassy in 3 months. Karyn Muñoz For now, can schedule for monthly CBC/CMP and follow up OV with or Kassy in about 3 months. May have to change of course depending on PET results. Serena Carrasco DO Patient aware of all information. PSS- please schedule patient for a fasting lipid panel 11/11/2023 @ 8:30. Patient is aware of appointment date and time. Dr. Carrasco- patient has a PET scan today and an echo 08/20/2023. She is asking when a follow up visit should be scheduled? Svetlana Kong LPN ----- Message from Serena Carrasco DO sent at 08/10/2023 9:59 AM EDT ----- Cholesterol and triglycerides increased. Recommend cutting back on sweets and fatty foods. Also, check in with Dr. Rivas if cholesterol medication indicated. Plan to repeat fasting lipid panel in 3 months. documented in this encounter [facility] 08-13-2023 History of Present illness Narrative Primary Care Pharmacy Visit CC (Reason for Consult): (E11.9) Type 2 diabetes mellitus without complication, unspecified whether fpc insulin use (HCC) (primary encounter diagnosis) Goal(s): A1c <8% Last Collaborating Provider Visit: 07/16/[address] Terence Saha Angelita Sorto is a 63 year old female presenting for follow up visit telephone call. Patient consents to pharmacy collaborative practice agreement. Last Pharmacy Visit: 07/18/23 - glyburide switched to glipizide xl HPI: Reports doing okay States BGs are still not under control Reports has been walking more and watching diet Recently met with Dr. Carrasco who suggested trying Ozempic given continued elevated BGs Current DM Medications: Glipizide XL 5 mg once daily Previously Trialed DM Meds: Metformin - unable to tolerate GLYCEMIC CONTROL: Glucometer present at visit: BG log Hypoglycemia: No SMBGS (Fingersticks) BG Log 189 270 219 201 243 216 247 168 160 173 Checking in the morning and once in evening Past medical history reviewed. ALLERGIES Allergen Reactions Amoxicillin Rash rash arms trunk neck face, itching Chills Current Outpatient Medications Medication Sig Dispense Refill LORazepam (ATIVAN) 0.5 mg take 1 tablet by mouth three times a day if needed for up to 30 DAYS 90 tablet 0 ONETOUCH ULTRA PLUS TEST strp 1 Each two times a day. And as needed for symptoms of sugars too high or too low. Diagnosis: E11.65, Insulin: No 200 Each 3 Lancets (ONETOUCH ULTRASOFT LANCETS) Use with blood glucose test two times a day. Insulin Dep? No E11.65 200 Each 3 glipiZIDE (GLUCOTROL XL) 5 mg 24 hr tablet Take 1 tablet by mouth once daily. 30 tablet 2 blood sugar diagnostic (BLOOD GLUCOSE TEST) test strip Use with blood glucose test two times a day. Insulin Dep? No 200 Each 3 efvgdwlsxeXYQMK-aabdkb-vaqndplgd (BMX 1:1:1) 1:1:1 liqd Take by mouth every 4 hours as needed (mucositis). Magic mouthwash PRN aspirin, enteric coated (ASPIRIN, ENTERIC COATED) 81 mg EC tablet Take 81 mg by mouth once daily. WINOXEP-JSOGLLXAD-ULDS ORAL Take 1 tablet by mouth once daily. (Patient not taking: Reported on 07/18/2023) exemestane (AROMASIN) 25 mg tablet Take 1 tablet by mouth once daily. TAKE AFTER A MEAL. 30 tablet 5 losartan (COZAAR) 25 mg tablet Take 1 tablet by mouth once daily. 30 tablet 5 everolimus, antineoplastic, (AFINITOR) 10 mg tablet Take 1 tablet (10 mg) by mouth once daily. [address] (PROTONIX) 40 mg tablet Take 40 mg by mouth daily before breakfast. ascorbic acid, vitamin C, (VITAMIN C) 500 mg tablet Take 500 mg by mouth once daily. alpha tocopheryl acetate (VITAMIN E) 400 unit capsule Take 400 Units by mouth once daily. cyanocobalamin (VITAMIN B-12) 1,000 mcg tab Take 500 mcg by mouth once daily. VITAMIN D 50,000 unit capsule 1 capsule one time a week. Ursodiol 500 mg tablet Take 1.5 tablets by mouth twice daily. CALCIUM CARBONATE (CALCIUM 500 ORAL) Take 1 tablet by mouth once daily. No current facility-administered medications for this visit. Pill bottles are not present. Adherence: denies missed doses. Rx coverage: Payor: ANTHEM / Plan: BLUE ACCESS PPO / Product Type: PPO / Medications affordable? Yes PHARMACOTHERAPY PREVENTATIVE MEDS: On LATISHA/ARB: Yes On Statin: No On ASA: Yes EXAM: There were no vitals taken for this visit. Last 3 Encounter BP Readings: Date: BP: 08/05/2023 149/78 07/16/2023 122/86 07/15/2023 [not assessed today[ Wt: 82.6 kg (182 lb) BMI: 30.52 kg/(m^2) LABS: Lab Results Component Value Date HBA1C 9.1 07/16/2023 HBA1C 6.1 03/11/2023 HBA1C 5.9 02/19/2022 HBA1C 5.6 10/07/2018 HBA1C 5.7 05/20/2018 Glucose 249 08/05/2023 BUN 16 08/05/2023 Creatinine, Whole Blood (iSTAT) 0.86 08/05/2023 Sodium 141 08/05/2023 Potassium 3.4 08/05/2023 Chloride 106 08/05/2023 CO2 27 08/05/2023 Protein, Total 7.1 08/05/2023 Albumin 3.8 08/05/2023 Calcium 9.2 08/05/2023 Alkaline Phosphatase 63 08/05/2023 Bilirubin, Total 0.3 08/05/2023 AST 20 08/05/2023 ALT 17 08/05/2023 Lab Results Component Value Date CHOL 237 08/08/2023 CHOL 167 10/07/2018 LDL 156 08/08/2023 LDL 103 10/07/2018 HDL 35 08/08/2023 HDL 34 10/07/2018 TG 230 08/08/2023 TG 151 10/07/2018 No results found for: UALBCR eGFR-All Other Races (.) Date Value 02/15/2021 59 Estimated Glomerular Filtration Rate (mL/min/1.73m ) Date Value 08/05/2023 76 ASSESSMENT/PLAN: 1. Type 2 diabetes mellitus without complication, unspecified whether fpc insulin use (HCC) - ICD9: 250.00, ICD10: E11.9 - Uncontrolled - Start semaglutide (Ozempic) 0.25 mg once weekly x4 weeks, then increase to 0.5 mg once weekly. Reviewed appropriate medication administration; will send Equivalent DATAo video link via [employer] - Continue glipizide XL 5 mg once daily - Blood glucose monitoring on a twice daily schedule - Counseled on healthy diet and regular exercise - Discussed diabetic education issues of diabetes complications and monitoring required, hypoglycemic/hyperglycemic symptoms, and medication-specific side effects and monitoring - Follow up in 3 weeks, sooner should any other issues arise. Follow Up: Next PCP visit: 03/18/24 Next PharmD visit: 09/05/23 Tatianna Crook PharmD Primary Care Clinical Putty Remover documented in this encounter [facility] 08-12-2023 Telephone encounter Note Fasting Lipid with QMO CBC/CMP scheduled on 8.5 as directed. Left message for patient to return call. When patient calls, please advise below and schedule QMO CBC/CMP and follow up w/ Dr. Carrasco/Kassy in 3 months. Karyn Muñoz [facility] 08-12-2023 Telephone encounter Note For now, can schedule for monthly CBC/CMP and follow up OV with or Kassy in about 3 months. May have to change of course depending on PET results. Serena Carrasco DO [facility] 08-12-2023 Telephone encounter Note Patient aware of all information. PSS- please schedule patient for a fasting lipid panel 11/11/2023 @ 8:30. Patient is aware of appointment date and time. Dr. Carrasco- patient has a PET scan today and an echo 08/20/2023. She is asking when a follow up visit should be scheduled? Svetlana Kong LPN [facility] 08-12-2023 Telephone encounter Note ----- Message from Serena Carrasco DO sent at 08/10/2023 9:59 AM EDT ----- Cholesterol and triglycerides increased. Recommend cutting back on sweets and fatty foods. Also, check in with Dr. Rivas if cholesterol medication indicated. Plan to repeat fasting lipid panel in 3 months. [facility] 08-05-2023 Telephone encounter Note She has questions about whether Ozempic is appropriate for her. Recently switched from metformin to glipizide. Routing to pharmacist and PCP for review. [facility] Work Phone: 08-05-2023 Miscellaneous Notes She has questions about whether Ozempic is appropriate for her. Recently switched from metformin to glipizide. Routing to pharmacist and PCP for review. documented in this encounter [facility] 08-05-2023 History of Present illness Narrative Diagnosis: 1) Breast cancer. HPI: The patient is a 63-year-old female who has a past medical history significant for hypertension and primary biliary cirrhosis. She is seen by her mems process engineer approximately once a year and she has had stable findings. Most recent liver chemistries performed at [facility] on 01/10/2017 showed a total bilirubin of 0.3 mg/dL with a direct bilirubin of 0.09 mg/dL. The AST was 19 and the ALT was 23. Alkaline phosphatase was 95. CBC at that time was normal with a white count of 8900. No differential. Hemoglobin 12.2 g/dL platelet count 237,000. Coagulation studies showed a normal INR 1.0 with a PT of 13.0 seconds. Evidently she was on a trip to [place] about 2 1/2 years ago when she developed pleuritic right-sided chest pain. She presented to local ER there. She's not sure what radiographic studies were done but she was told that there was a concern she had lung cancer and she was to follow-up when she got back home. Over the last 2 years she's had a number of radiographic studies including CT of the chest as well as PET scan last year that showed no evidence of malignancy. She's had pain under left breast that was attributed to rib fracture with healing. Over the last year there's been a lump in lower left breast thought associated to healing underlying rib fracture. Core needle biopsy performed on 03/29/2017: Left breast, core biopsy: Invasive ductal carcinoma, nuclear grade 2 (1.3 cm in greatest length). ER (clone [id number]) >95%, strong SC (clone [id number]/[id number]) >95%, strong Her-2Neu (clone [id number]) 0 There was a spiculated mass at the lower outer left breast measuring 2.7 x 1.8 x 3.5 cm with central clip artifact consistent with the biopsy-proven malignancy. It was in the posterior depth but there was no evidence of chest wall involvement. There were no other abnormal areas of enhancement within the left breast. There were 2 abnormally thickened enhancing lymph nodes high in the left axilla that were suspicious for axillary node metastases. There are also several rounded nodes in the left high subpectoral region with the largest measuring 7 mm in short axis. These were noted to be suspicious. A possible 4 mm in short axis left internal mammary node was also appreciated. Full staging workup including CT scans of the chest, abdomen and pelvis as well as brain MRI and whole-body bone scan shows some mild activity in the distal femur on the right. Plain films showed degenerative changes without any osteoblastic or osteolytic activity. The CT scans disclosed 2 hypodense lesions in the liver that on MRI had signal characteristics consistent with hemangioma. Brain MRI was normal. Previous therapy: 1) Neoadjuvant AC followed by Taxol. 2) Underwent a left nipple sparing mastectomy with left axillary lymph node dissection and left arm reverse axillary mapping on 10/08/2017. This was done in conjunction with a implant and acellular dermal matrix with a lymphatico-venous bypass to the left axilla. 3) Adjuvant radiation to left chest wall/axilla and supraclavicular area completed 01/02/2018. Pathology from 10/08/2017 surgery: 1. Left axillary contents, excision (A) - Four of five lymph nodes, positive for metastatic carcinoma (4/5) with treatment effect. - Extranodal extension is present. - Biopsy clips and changes consistent with prior biopsy sites. 2. Left breast, mastectomy (B) - Fibrous tumor bed with residual invasive ductal carcinoma, histologic grade 1. - Ductal carcinoma in situ, intermediate nuclear grade, solid type. - Biopsy clip and changes consistent with prior biopsy site. - Please see synoptic report. SYNOPTIC REPORT OF [place] PATHOLOGIC FINDINGS LEFT BREAST: BREAST INVASIVE CARCINOMA WORKSHEET Part: A and B Procedure: Total mastectomy (including nipple-sparing and skin-sparing mastectomy) Specimen Laterality: Left Tumor size: Size of largest invasive carcinoma: Greatest dimension of largest focus of invasion >1 mm: 9 mm Tumor Focality: Single focus of invasive carcinoma Histologic Type of Invasive Carcinoma: Invasive carcinoma of no special type (ductal, not otherwise specified) Histologic Grade: Glandular (Acinar) / Tubular Differentiation: Score 2 Nuclear Pleomorphism: Score 2 Mitotic Rate: Score 1 (<=3 mitosis per mm2) Overall Grade: Grade I Ductal Carcinoma In Situ: DCIS is present in specimen DCIS Nuclear Grade: Grade II (intermediate) Tumor Extension: Skin: Not applicable Nipple: Not applicable Skeletal muscle: Not applicable Invasive Carcinoma Margins: Margins uninvolved by invasive carcinoma Distance from closest margin: 2 mm Closest margin: Inferior radial DCIS Margins: Margins uninvolved by DCIS Distance from closest margin: 5 mm Closest margin: Inferior radial Lymph Nodes: Involved by tumor cells Number of lymph nodes with macrometastases (>2 mm): 4 Number of lymph nodes with micrometastases (>0.2 mm to 2 mm and/or >200 cells): 0 Number of lymph nodes with isolated tumor cells (<= 0.2 mm and <= 200 cells): 0 Size of largest metastatic deposit: 8 mm Extranodal extension present: 1.5 mm Number of lymph nodes examined: 5 Treatment Effect: Treatment effect in the breast Treatment effect in the lymph nodes Probable or definite response to presurgical therapy in the invasive carcinoma Probable or definite response to presurgical therapy in metastatic carcinoma Lymph-Vascular Invasion: Present Pathologic Stage Classification (pTNM,AJCC 8th ed) TNM Descriptor(s): y (post- treatment) Primary Tumor (Invasive Carcinoma) (pT): pT1b Regional Lymph Nodes (pN): Modifier: Not applicable Category (pN): pN2a Distant metastasis: Distant Metastasis (pM) Not applicable/Not confirmed pathologically in this case Estrogen & progesterone receptors: Previously performed (HER2) ERBB2 Status: 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 3) [facility] Stopped 08/2022. Metastatic disease. 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 Was seen by Dr. Bingham for the nodule appreciated on previous exam. Underwent punch biopsy on 07/19/2022. Pathology: Skin, left breast, punch biopsy: -Consistent with metastatic breast adenocarcinoma, see comment. Histologic sections demonstrate a largely unremarkable epidermis overlying a dermis filled with infiltrative cords and nests of pleomorphic epithelioid cells with ductal formation. To better characterize the specimen, ancillary immunohistochemical staining was performed on block A1 at the [facility] and compared to appropriate reactive controls. The epithelioid cells are positive for CK7 and GATA3. These histologic findings are consistent with metastatic breast adenocarcinoma from the patient's known malignancy. Underwent bronchoscopy on 08/14/2022 where lymph node sampling was performed of a 4L lymph node. Pathology: EBUS TRANSBRONCHIAL FINE NEEDLE ASPIRATE, LYMPH NODE - 4L Positive for malignant cells. Metastatic adenocarcinoma consistent with breast primary (see comment). Previous therapy for metastatic disease: 1) Verzenio. Began began 08/24/2022. Stopped due to fatigue and diarrhea. 2) Faslodex. Began 08/23/2022. 3) Ribociclib. Began 11/19. Current therapy: 1) Exemestane (05/13/2023) and everolimus second week April 2023. Was at [facility]. Had PET scan on 05/02. Demonstrated stable appearance of FDG uptake in the soft tissue thickenings along posterior left breast prosthesis and also small skin nodule left anterior breast as compared with outside PET/CT on 01/28. Small right axillary node with FDG avid uptake was noted to be stable. This was thought to be reactive rather metastatic disease. No other FDG avid lesions were observed including mediastinal and/or hilar adenopathy. Presents for ongoing oncologic management. Interim history: Blood sugars have escalated since going on Afinitor. She is on glipizide but still getting sugars in the 200s. Taking exemestane and Afinitor tour in the evening. Feels well in general however. Only issue remains his insomnia. Chronic issue for which she used to take trazodone but that had not been helping as much. PMH, medications and allergies personally reviewed by me today. Any changes documented in appropriate section. ROS: Constitutional: Denies episodes of fever and night sweats. Neuro: Denies YOUSIF, vertigo, dizziness and imbalance. HEENT: No recent change in voice, vision or hearing. Resp: See HPI. CVS: See HPI.. GI: Denies dysgeusia. Denies symptoms of stomatitis. Denies dysphagia and odynophagia. Denies reflux. : Denies dysuria or gross hematuria. No symptoms of bladder outlet obstruction. Endo: Denies polyuria and polydipsia. Denies heat and cold intolerance. Musculoskeletal: Improvement in previous musculoskeletal side effects from anastrozole. Derm: Denies rash. Denies jaundice and diffuse pruritis. Heme: Denies unusual bleeding and unexplained bruising. Psych: Normal mood. PHYSICAL EXAM: Vitals: Blood pressure 149/78, pulse 87, temperature 37 C (98.6 F), temperature source Temporal, weight 82.6 kg (182 lb), SpO2 99%. -appearing and in no acute distress. EYES: Sclerae are anicteric bilaterally. LYMPHATIC: There is no palpable cervical or supraclavicular adenopathy. No axillary adenopathy. RESPIRATORY: Inspiratory breath sounds are of normal intensity in all escobedo. No rales, wheezes or rhonchi. CARDIOVASCULAR: Rhythm is regular. BREAST: chaperoned.. Left sided implant remains contracted. No longer appreciating BB sized metastases along superior margin of the implant. The dermal lesion at 7 o'clock smaller again in the interim. The scarred tissue in lateral IMF is also less prominent and softer than prior exam. ABDOMEN: The abdomen is nondistended. No organomegaly. No tenderness. Extremities: No swelling or edema. SKIN: No jaundice or rash. LABS: ASSESSMENT/PLAN: (C50.512, Z17.0) Malignant neoplasm of lower-outer quadrant of left breast of female, estrogen receptor positive (HCC) (primary encounter diagnosis) (C77.3) 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) Assessment: -cT3 cN3 (high axillary LNs and possible internal mammary merlyn involvement) MX stage IIIC ER/SC positive, HER2 non overexpressed invasive ductal carcinoma of the right breast. -KPS is 100%. -PET scan indicated disease left chest wall and mediastinal lymph nodes. MRI brain negative. -Biopsy-proven disease recurrence left chest wall inferior and posterior to implant. -ER positive (99% strong staining intensity), SC positive (2% with strong staining intensity), HER2 2+; nonamplified by FISH testing. 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 -MRI Breast 03/28/2023 demonstrated PD and therapy was rotated to Faslodex and Afinitor. At [facility] they recommended exemestane with Afinitor. Changes were made. -PET scan results from [facility] on 05/02/2023. Resolution of FDG avid mediastinal adenopathy. Stable right axillary lymph node suspicious for reactive lymph node. Stable FDG uptake in the posterior tissues of the left breast prosthesis as well as skin nodule in the anterior 7 o'clock position of the breast. -Exam today suggest continued response. -Hyperglycemia from Afinitor or. Not well-controlled with glipizide. -Needs fasting lipid panel updated. -Decreasing MCV. -Insomnia. Plan: -Continue exemestane and everolimus. -Due for PET scan. -Trial of Benadryl for insomnia. Discussed trying 25 mg first and if after a couple nights does not seem to help then increase to 2 tablets provided she is not groggy the next day. -Fasting lipid panel this week. -Check iron studies. -She will check with Dr. Rivas about adding Ozempic. (I42.7, T45.1X5A) Chemotherapy-induced cardiomyopathy (HCC) Assessment: -Patient had otherwise unexplained persistent tachycardia. Echo showed normal EF but I had reviewed with cardiology--there was a 10 percent change in the strain pattern suggestive of early cardiomyopathy. -Monitor home blood pressure. Higher than typical today. Plan: -Continue Cozaar. -Due for echocardiogram. (N17.9) LAXMI (acute kidney injury) (HCC) Assessment: -Initially observed when she was having severe diarrhea from abemaciclib. -Improved after hydration and dose reducing Verzenio. -Persisted on ribociclib. -Now serum creatinine back to normal. Plan: -Continue to monitor. Portions of this documentation were copied and pasted from previous office visit notes in order to provide a cohesive continuity of the history. The note has been reviewed and edited and updated as necessary. Serena Carrasco DO documented in this encounter [facility] 07-24-2023 Miscellaneous Notes Was only for 30 days and PCP discontinued on 07/16/2023. Svetlana Kong LPN documented in this encounter [facility] 07-19-2023 Miscellaneous Notes The following approved medication requests have been transmitted electronically. Requested Prescriptions Signed Prescriptions Disp Refills ONETOUCH ULTRA PLUS TEST strp 200 Each 3 Si Each two times a day. And as needed for symptoms of sugars too high or too low. Diagnosis: E11.65, Insulin: No Lancets (ONETOUCH ULTRASOFT LANCETS) 200 Each 3 Sig: Use with blood glucose test two times a day. Insulin Dep? No E11.65 Jacinta Rivas MD documented in this encounter [facility] 07-18-2023 History of Present illness Narrative Primary Care Pharmacy Visit CC (Reason for Consult): (E11.9) Type 2 diabetes mellitus without complication, unspecified 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 insulin use (HCC) (primary encounter diagnosis) Goal(s): A1c <8% Last Collaborating Provider Visit: 07/16/[address] Terence Saha Angelita Sorto is a 63 year old female presenting for initial visit: This initial consult was conducted in person with the patient where the consult agreement was explained. The patient may decline or cancel the agreement at any time. After consideration, the patient consented to the pharmacy consult agreement and agreed to allow medications be collaboratively managed by a pharmacist. HPI: States she was started on Afinitor at end of April. Had been on other chemo medications prior. Follows with oncologist at [facility]. States not sure what duration of therapy with Afinitor will be; however, it is effective, has been shrinking the tumors Confirmed starting the glyburide; was increased to 5 mg after last PCP visit Not able to tolerate the metformin. Experienced diarrhea with low dose immediately after trying Has some baseline GI upset/symptoms from chemotherapy medications as well No longer taking dexamethasone liquid now using magic mouthwash PRN now for mucositis Had a UTI last week Reports some dry mouth in last couple of months Current DM Medications: Glyburide 2.5 mg daily - now taking 5 mg once daily Metformin 500 mg twice daily - not taking Diet Eating 3 meals/day Breakfast - piece of wheat toast with avocado or raisin bran or cheerios, egg on a muffin Lunch - salad with chicken, tuna salad sandwich, toasted cheese sandwich, chicken noodle soup or veggie soup (homemade) Dinner - pasta occasionally, grilled chicken or steak with baked potato, broccoli, side salad, pork chop sometimes, hamburger without bun with broccoli Snacks - none Drinking water throughout the day Occasionally a cup of tea once or twice a week Exercise: walking about 3 miles/day, sometimes more or less Tobacco: No Alcohol: No Caffeine: Yes GLYCEMIC CONTROL: Glucometer present at visit: No Hypoglycemia: No Checking twice a day - morning fasting, evening couple hours after dinner Average form 180-220 Past medical history reviewed. ALLERGIES Allergen Reactions Amoxicillin Rash rash arms trunk neck face, itching Chills Current Outpatient Medications Medication Sig Dispense Refill glyBURIDE 2.5 mg tablet Take 1 tablet by mouth daily with breakfast. 30 tablet 1 metFORMIN (GLUCOPHAGE) 500 mg tablet Take 500 mg by mouth two times a day. (Patient not taking: Reported on 07/16/2023) aspirin, enteric coated (ASPIRIN, ENTERIC COATED) 81 mg EC tablet Take 81 mg by mouth once daily. potassium chloride ER (KLOR-CON) 20 mEq tablet Take 1 tablet by mouth two times a day for 10 days, THEN 1 tablet once daily for 20 days. (Patient not taking: Reported on 07/16/2023) 40 tablet 0 LORazepam (ATIVAN) 0.5 mg Take 1 tablet by mouth three times a day as needed for up to 30 days. 90 tablet 0 [id number] ORAL Take 1 tablet by mouth once daily. exemestane (AROMASIN) 25 mg tablet Take 1 tablet by mouth once daily. TAKE AFTER A MEAL. 30 tablet 5 dexAMETHasone (DECADRON) 0.5 mg/5 mL oral liquid Take 10 mL by mouth four times daily. (swish for 2 minutes and spit out) 560 mL 5 losartan (COZAAR) 25 mg tablet Take 1 tablet by mouth once daily. 30 tablet 5 everolimus, antineoplastic, (AFINITOR) 10 mg tablet Take 1 tablet (10 mg) by mouth once daily. 30 tablet 5 magnesium oxide 400 mg magnesium tab Take 1 tablet by mouth once daily. (Patient not taking: Reported on 07/16/2023) ondansetron (ZOFRAN) 8 mg tablet Take 1 tablet by mouth every 8 hours as needed for nausea/vomiting (For chemotherapy induced nausea). FOR NAUSEA [address] (PROTONIX) 40 mg tablet Take 40 mg by mouth daily before breakfast. ascorbic acid, vitamin C, (VITAMIN C) 500 mg tablet Take 500 mg by mouth once daily. alpha tocopheryl acetate (VITAMIN E) 400 unit capsule Take 400 Units by mouth once daily. cyanocobalamin (VITAMIN B-12) 1,000 mcg tab Take 500 mcg by mouth once daily. VITAMIN D 50,000 unit capsule 1 capsule one time a week. Ursodiol 500 mg tablet Take 1.5 tablets by mouth twice daily. CALCIUM CARBONATE (CALCIUM 500 ORAL) Take 1 tablet by mouth once daily. (Patient not taking: Reported on 07/16/2023) No current facility-administered medications for this visit. Other medications not listed: - CBD oil at night Pill bottles are not present. Adherence: denies missed doses. Rx coverage: Payor: [employer] / Plan: BLUE ACCESS PPO / Product Type: PPO / Medications affordable? Yes PHARMACOTHERAPY PREVENTATIVE MEDS: On LATISHA/ARB: Yes On Statin: No On ASA: Yes EXAM: There were no vitals taken for this visit. Last 3 Encounter BP Readings: Date: BP: 07/16/2023 122/86 07/15/2023 [not assessed today[ 07/08/2023 130/88 Wt: 81.7 kg (180 lb 3.2 oz) BMI: 30.22 kg/(m^2) LABS: Lab Results Component Value Date HBA1C 9.1 07/16/2023 HBA1C 6.1 03/11/2023 HBA1C 5.9 02/19/2022 HBA1C 5.6 10/07/2018 HBA1C 5.7 05/20/2018 Glucose 254 07/05/2023 BUN 18 07/05/2023 Creatinine, Whole Blood (iSTAT) 0.96 07/05/2023 Sodium 136 07/05/2023 Potassium 3.2 07/05/2023 Chloride 99 07/05/2023 CO2 28 07/05/2023 Protein, Total 7.0 07/05/2023 Albumin 3.7 07/05/2023 Calcium 9.3 07/05/2023 Alkaline Phosphatase 65 07/05/2023 Bilirubin, Total 0.3 07/05/2023 AST 19 07/05/2023 ALT 19 07/05/2023 Lab Results Component Value Date CHOL 167 10/07/2018 LDL 103 10/07/2018 HDL 34 10/07/2018 TG 151 10/07/2018 No results found for: UALBCR eGFR-All Other Races (.) Date Value 02/15/2021 59 Estimated Glomerular Filtration Rate (mL/min/1.73m ) Date Value 07/05/2023 66 ASSESSMENT/PLAN: 1. Type 2 diabetes mellitus without complication, unspecified whether fpc insulin use (HCC) - ICD9: 250.00, ICD10: E11.9 - Uncontrolled. A1c not at goal <8% (consult goal). Reported BGs above goal; recent increase in A1c likely directly related to initiation of Afinitor in April. Given recent history of reduced renal fxn, will switch glyburide to glipizide. - Stop glyburide and Start glipizide XL 5 mg once daily - Removed metformin from med list (unable to tolerate previously) - Blood glucose monitoring on a twice daily schedule - Counseled on healthy diet and regular exercise - Discussed diabetic education issues of diabetes complications and monitoring required, hypoglycemic/hyperglycemic symptoms, and medication-specific side effects and monitoring - Follow up in 1 month, sooner should any other issues arise. Follow Up: Next PCP visit: 03/18/24 Next PharmD visit: 08/22/23 Tatianna Crook, Last Primary Care Clinical Putty Remover I spent a total of 60 minutes on the date of the service which included preparing to see the patient, [id number] patient care, completing clinical documentation, counseling and educating the patient/family/caregiver, and ordering medications, tests, or procedures. documented in this encounter [facility] 07-18-2023 Instructions Tatianna Crook RPh - 07/18/2023 1:30 PM EDT Switch glyburide to glipizide - take glipizide XL 5 mg once daily documented in this encounter [facility] 07-16-2023 Instructions Jacinta Rivas MD - 07/16/2023 11:59 AM EDT May increase glyburide to taking 2 pills per day. documented in this encounter [facility] 07-16-2023 History of Present illness Narrative This note was created using [employer]oo[employer]. Subjective Pat Sorto is a 63 year old female. Patient presents with: ER F/U: High BS readings and UTI SUBJECTIVE: Pat Sorto is a 63 year old year old lady here today for ER follow up appointment for review of medical conditions. Reviewed ER records. Sugar 217 this AM. Reviewed did not tolerate metformin--diarrhea. Stomach really sensitive to meds. Tolerating glyburide Potassium upsetting stomach. Was started 07/04 when potassium 3.2. Was 3.7 in ER. Completed Cephalexin for UTI. Urinary frequency improved. 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 Husam Hart in [place] Current Outpatient Medications Medication Sig glyBURIDE 2.5 mg tablet Take 1 tablet by mouth daily with breakfast. aspirin, enteric coated (ASPIRIN, ENTERIC COATED) 81 mg EC tablet Take 81 mg by mouth once daily. potassium chloride ER (KLOR-CON) 20 mEq tablet Take 1 tablet by mouth two times a day for 10 days, THEN 1 tablet once daily for 20 days. LORazepam (ATIVAN) 0.5 mg Take 1 tablet by mouth three times a day as needed for up to 30 days. [id number] ORAL Take 1 tablet by mouth once daily. exemestane (AROMASIN) 25 mg tablet Take 1 tablet by mouth once daily. TAKE AFTER A MEAL. dexAMETHasone (DECADRON) 0.5 mg/5 mL oral liquid Take 10 mL by mouth four times daily. (swish for 2 minutes and spit out) losartan (COZAAR) 25 mg tablet Take 1 tablet by mouth once daily. everolimus, antineoplastic, (AFINITOR) 10 mg tablet Take 1 tablet (10 mg) by mouth once daily. ondansetron (ZOFRAN) 8 mg tablet Take 1 tablet by mouth every 8 hours as needed for nausea/vomiting (For chemotherapy induced nausea). FOR NAUSEA pantoprazole DR (PROTONIX) 40 mg tablet Take 40 mg by mouth daily before breakfast. ascorbic acid, vitamin C, (VITAMIN C) 500 mg tablet Take 500 mg by mouth once daily. alpha tocopheryl acetate (VITAMIN E) 400 unit capsule Take 400 Units by mouth once daily. cyanocobalamin (VITAMIN B-12) 1,000 mcg tab Take 500 mcg by mouth once daily. VITAMIN D 50,000 unit capsule 1 capsule one time a week. Ursodiol 500 mg tablet Take 1.5 tablets by mouth twice daily. metFORMIN (GLUCOPHAGE) 500 mg tablet Take 500 mg by mouth two times a day. (Patient not taking: Reported on 07/16/2023) magnesium oxide 400 mg magnesium tab Take 1 tablet by mouth once daily. (Patient not taking: Reported on 07/16/2023) CALCIUM CARBONATE (CALCIUM 500 ORAL) Take 1 tablet by mouth once daily. (Patient not taking: Reported on 07/16/2023) No current facility-administered medications for this visit. Review of Systems Objective BP 122/86 (BP Site: Left Arm, BP Position: Sitting, BP Cuff Size: Regular Adult) Pulse 90 Wt 81.7 kg (180 lb 3.2 oz) SpO2 100% BMI 30.22 kg/m Physical Exam Constitutional: General: She is not in acute distress. Appearance: Normal appearance. She is not ill-appearing. Eyes: Conjunctiva/sclera: Conjunctivae normal. Pulmonary: Effort: Pulmonary effort is normal. Musculoskeletal: Right lower leg: No edema. Left lower leg: No edema. Neurological: General: No focal deficit present. Mental Status: She is alert and oriented to person, place, and time. Psychiatric: Mood and Affect: Mood normal. Behavior: Behavior normal. Thought Content: Thought content normal. Judgment: Judgment normal. Hemoglobin A1C (%) Date Value 03/11/2023 6.1 10/07/2018 5.6 05/20/2018 5.7 Hemoglobin A1C (POCT) (%) Date Value 07/16/2023 9.1 02/19/2022 5.9 Assessment and Plan Encounter Diagnosis ICD-10-CM 1. Newly diagnosed Uncontrolled type 2 diabetes mellitus with hyperglycemia (HCC) E11.65 CONSULT TO PHARMACY Reviewed symptoms and labs done in ER.Consult to PharmD for medication maangement given current meds to treatment of breast cancer, etc 2. Urinary tract infection without hematuria, site unspecified N39.0 Responded to treatment with cephalexin. No further treatment needed at this time 3. Metastasis from breast cancer (HCC) C79.9 C50.919 Notd med adjustments made. Potential interaction with med options for DM noted. Consult to PharmD as noted above Above issues addressed with patient. Patient involved in shared decision making for management of medical issues. History and medications reviewed. Epic updated as needed Refills and/or prescriptions taken care of and meds adjusted as indicated after reviewed history, exam and labs. Further evaluation and treatment as indicated. Jacinta Rivas MD documented in this encounter [facility] 07-15-2023 History of Present illness Narrative Images from the original note were not included. Episode Visit Count: 1 Therapist That Will Accept/Oversee The Plan Of Care: Bobbi Vanegas Start of Care Date: 07/15/23 Onset Date: 05/09/23 Patient Identified by Name and Date of : Yes REHABILITATION AND SPORTS THERAPY PHYSICAL THERAPY EVALUATION PLAN OF CARE: Assessment: Pat Sorto presents with diagnosis of lymphedema L arm, malignant neoplasm L breast, mts to mediastinal lymph node, mets to skin that interferes with recreational activities, reaching overhead, lifting (golfing) . She presents with impairments in edema management, overall function, range of motion, tissue tenderness, and soft tissue restrictions. Patient did not complete the PROMIS (Patient Reported Outcome Measures Information System). Prognosis for therapy is Excellent due to: current objective clinical presentation, good overall health status, good support system/ coping skills . She will benefit from skilled therapy services to meet the goals established for this plan of care as noted below. Goals for Episode of Care: created on 07/15/23 through 09/14/23 Pt will be able to perform full and normal golf swing without restriction or pain/tightness. Jones in home exercise program. Patient will decrease pain rating by 2 points to meet minimal clinical important difference for numeric pain rating scale. Patient will increase active ROM of L shoulder to 175deg flex and no pain/pulling/tightness at end range of all motions to allow pt to to improve performance of ADLs and golf swing for recreation and work. Perform recreational activities;reaching overhead;lifting; and golfing without pain. Patient able to verbalize skin care and lymphedema risk reductions Patient/family able to verbalize all pertinent aspects of CDT Patient/family independent with donning/doffing compression garment and proper wearing schedule and care of garment(s). Patient Goals: Reduced swelling/tightness in forearm. Any kind of improvements in L shld ROM. Planned Interventions, Frequency, and Duration: Current Frequency: 1x/week Duration: 8 weeks Total Number of Visits Planned: 8 Planned Treatment Interventions: Therapeutic exercise (47295), Manual therapy (19946), Self-retirement management (23225), Patient/Family/Caregiver Education PLAN FOR NEXT VISIT: Assess response to and perfomance of decongestive exercises. Initiate manual techniques and stertches as appropriate to address soft tissue restrictions. Continue education and home management recommendations. Patient demonstrates good understanding of plan of care and treatment. The above goals and plan of care were discussed and agreed upon by patient/family. SUBJECTIVE: Pt reports she starting to notice swelling in her L forearm the past few months. Had PT in past for L shld ROM. Currently pain reaching across body, and pulling in chest reaching overhead. Specifically noting tightness of watch and indentaion left when removing it. Some discomfort in lower part of forearm to palpation. Currently has compression sleeve JUZO 15-20mmHg wrist to axilla. Wears at night, but realizes she pulls it off in middle of night. Sometimes wears during the day, but seems to cause swelling in her hand. After certian timeframe will get hand swelling. Kind of feels better without wearing it. (Just got a month ago.) Most recently, pt with recurrence L chest wall inferior-posterior to implant and mets to mediastinal lymph nodes. Patient Goals: Reduced swelling/tightness in forearm. Any kind of improvements in L shld ROM. 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 5 points is clinically meaningfully difference Percentiles provide an indication of how the patient's score ranks in relation to the general population. Higher percentile rankings indicate better function/quality of life. 50th percentile is the average of the general population and indicates half of respondents had a worse score. OBJECTIVE MEASURES WITH LEVEL OF FUNCTION: Lymphedema Presents with: Swelling, Pain, Decreased knowledge of lymphedema management Lymphedema Contributing Factors: Chemotherapy, Radiation, Lymph Node Removal Relative Contra-indications to Compression: : None Relative Contra-indications to Neck Manual Lymph Drainage: : None Relative Contra-indications for Abdominal Sequences: None Skin: Skin Comments Skin Comments:: tightness, soft tissue restrictions palpable lateral L breast, and axilla (when raises L arm, entire breast tissue elevates as well) Upper Extremity Circumferential Measurements R Thumb (proximal phalanx) (cm): 7 cm R Index Finger (proximal phalanx) (cm): 7 cm R Middle Finger (proximal phalanx) (cm): 6.5 cm R Ring Finger (proximal phalanx) (cm): 6 cm R Small Finger (proximal phalanx) (cm): 21 cm R DPC (cm): 17 cm R Distal Wrist Crease (DWC) (cm): 17.5 cm R 4 cm above wrist (cm): 19.5 cm R 8 cm above wrist (cm): 24.5 cm R 12 cm above wrist (cm): 26.5 cm R 16 cm above wrist (cm): 27 cm R 20 cm above wrist (cm): 26.5 cm (elbow) R 24 cm above wrist (cm): 27.5 cm R 28 cm above wrist (cm): 29.5 cm R 32 cm above wrist (cm): 32.5 cm R 36 cm above wrist (cm): 34 cm R 40 cm above wrist (cm): 34.5 cm L Thumb (proximal phalanx) (cm): 7 cm L Index Finger (proximal phalanx) (cm): 7 cm L Middle Finger (proximal phalanx) (cm): 6 cm L Ring Finger (proximal phalanx) (cm): 6 cm L Small Finger (proximal phalanx) (cm): 6 cm L DPC (cm): 21 cm L Distal Wrist Crease (DWC) (cm): 16.5 cm L 4 cm above wrist (cm): 18 cm L 8 cm above wrist (cm): 20.5 cm L 12 cm above wrist (cm): 24.5 cm L 16 cm above wrist (cm): 27 cm L 20 cm above wrist (cm): 26.5 cm (elbow) L 24 cm above wrist (cm): 28 cm L 28 cm above wrist (cm): 30 cm L 32 cm above wrist (cm): 33 cm L 36 cm above wrist (cm): 36 cm L 40 cm above wrist (cm): 36 cm Affected Arm : Left Arm Calculate Volume : Yes R Upper Extremity Volume: 2449.89 L Upper Extremity Volume: 2426.65 Difference in Volume: -23.24 Difference in % : -0.95 Breast Cancer Related Stage of Lymphedema: At Risk- Limb volume 0%-3% greater than baseline UE PROM R UE PROM: AROM L UE PROM: AROM R Shoulder Flex: 175 Degrees R Shoulder ABduction: 180 Degrees R Shoulder Internal Rotation: (back of hand to inferior angle of scapula) R Shoulder External Rotation: 90 Degrees L Shoulder Flex: 165 Degrees (pain/pulling medial uper arm) L Shoulder ABduction: 180 Degrees (pain/pulling) L Shoulder Internal Rotation: (back of hand to inferior angle of scapula) L Shoulder External Rotation: 85 Degrees Vitals BP: (not assessed today) Education: Education Learning Preferences: Demonstration, Explanation Barriers: None Learning/educational needs: Home exercise program, Plan of Care, Lymphedema Program Education Provided: Yes, see treatment interventions for education provided Education Provided To: Patient Education Mode/Type: Demonstration, Explanation/Discussion, Literature/Printed Materials, Performance Response to Education/Teach Back: States/Identifies, Return Demonstration TREATMENT: PT Treatment Interventions: Therapeutic Exercise, Self-Senior Care Management Evaluation Therapeutic Exercise: 1: *Instruction in UE Decongestive Exercises Skilled Intervention: Patient was educated in proper exercise technique and purpose for exercises. Skilled judgment was used in selection of appropriate interventions. Provided written instruction for home exercise program to facilitate proper performance and compliance. Correct performance of therapeutic exercises was facilitated with verbal and visual cuing. Patient education as noted. Self-Senior Care Management: 1: Educated pt in lymphedema and evaluation findings related to limb volume and soft tissue condition. 2: Educated pt in CDT treatment including skin care/infection prevention, decongestive exercises, MLD, and compression wrapping and garments. Discussed recommendations for compression sleeve in regards to not made for nighttime wear, and schedule of daytime wear, including option of compression glove/gauntlet d/t intermittent hand swelling. Pt with all questions answered by end of session. Skilled Intervention: Educated the patient regarding recommendations and provided written instruction to facilitate compliance. Reviewed patient specific diagnosis in relation to activities of daily living/home management. Billing * Evaluation Low Complexity: 1 Unit Therapeutic Exercise Treatment Minutes: 15 Self-Care/Home Management Treatment Minutes: 23 Skilled Treatment Time Minutes (timed and untimed codes): 53 Total Session Time (minutes): 53 Session Start Time : 1107 Session Stop Time : 1200 Bobbi Vanegas PT documented in this encounter [facility] 07-10-2023 Miscellaneous Notes See PCP Shreyat response, 07/10/23. Patient notified of that message. Susana Mix RN Images from the original note were not included. Patient returned call and wishes to cancel the 07/11 appt that was available to her for ER follow-up; will be going out of town -Saturday. Pt agreeable to keep appt for 07/15. Patient also asking for PCP response to her message sent today (as copied below). Reports she is on cancer medications as well and is concerned for further dehydration. She held her Metformin today and diarrhea has improved. COPIED FROM : Pat Sorto to P Wstr Intm My Chart Rx Pool (supporting Jacinta Rivas MD) 07/10/23 7:56 AM Good morning, Can we talk about the metforman. Yesterday was my first day taking it. I had diarrhea all last night and into this morning. I just can t take that drug. My electrolytes are so messed up now, this diarrhea will dehydrate and I have travel with golf team -Saturday. Any other options? Thanks Pat [phone] Please call patient with PCP response. Thank you. Left message for patient to return call to office. Rescheduled patient for 07/11 with PCP for follow up. If this does not work for patient please cancel. Left appointment for 07/15 as well until we hear back from patient on which appt she would prefer. Noted July eGFR was >60; prior eGFR 40 to 53 range Has 07/15 ER follow up appointment scheduled. See how patient is doing to see if need to see sooner and get set up with teaching to do glucometer for monitoring sugars or if already knows how to check her own sugars. No orders for glucometer and supplies in our orders so can send if needs to get with insurance coverage. Called by Dr. Nelson at [facility] ER for patient presenting with symptoms of UTI with positive UA. Will be treating her with empiric abx and sending for culture. Also noted glucose in the 300's without signs of DKA. Discussed sending her home on Metformin 500 mg BID and would recommend close f/u this week with PCP team to discuss new diagnosis of DM, monitoring, additional testing, and management. documented in this encounter [facility] 07-10-2023 Miscellaneous Notes Addended by: JACINTA RIVAS on: 07/10/2023 04:44 PM Modules accepted: Orders Please see 07/08/23 phone encounter. Will close this encounter. Susana Mix RN documented in this encounter [facility] 07-08-2023 History of Present illness Narrative This note was created using NoteWriter. Subjective Pat Sorto is a 63 year old female. 63 year old female with PMH of breast cancer on chemotherapy, hypertension, and primary biliary cirrhosis presents today with acute onset urinary frequency for one week. Pertinent positives include urinary urgency, fatigue, chills, nausea, decreased appetite, LLQ abdominal discomfort, and hematuria. Pertinent negatives include back pain, pelvic pain, fever, body aches, vaginal discharge, vomiting and diarrhea. The history is provided by the patient. UTI Associated symptoms include chills, nausea, frequency, hematuria and urgency. Pertinent negatives include no vomiting and no flank pain. 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 Husam Hart in [place] PAST SURGICAL HISTORY Procedure Laterality Date ARTHRP ACETBLR/PROX FEM PROSTC AGRFT/ALGRFT Right 03/20/2019 Hip replacement, total ARTHRP KNE CONDYLE&PLATU MEDIAL&LAT COMPARTMENTS Left 02/2016 BIOPSY BREAST OPEN INCISIONAL Left 2007 [facility] benign pathology per patient BREAST RECONSTRUCTION Left 2019 fat graft/implant exchange DELIVERY ONLY 1996,1993 , low transverse MASTECTOMY HX Left 2017 AND with immediate reconstruction ALLERGIES Amoxicillin MEDICATIONS aspirin, enteric coated (ASPIRIN, ENTERIC COATED) 81 mg EC tablet Take 81 mg by mouth once daily. potassium chloride ER (KLOR-CON) 20 mEq tablet Take 1 tablet by mouth two times a day for 10 days, THEN 1 tablet once daily for 20 days. LORazepam (ATIVAN) 0.5 mg Take 1 tablet by mouth three times a day as needed for up to 30 days. [id number]-[id number]-[id number] ORAL Take 1 tablet by mouth once daily. exemestane (AROMASIN) 25 mg tablet Take 1 tablet by mouth once daily. TAKE AFTER A MEAL. dexAMETHasone (DECADRON) 0.5 mg/5 mL oral liquid Take 10 mL by mouth four times daily. (swish for 2 minutes and spit out) losartan (COZAAR) 25 mg tablet Take 1 tablet by mouth once daily. everolimus, antineoplastic, (AFINITOR) 10 mg tablet Take 1 tablet (10 mg) by mouth once daily. ondansetron (ZOFRAN) 8 mg tablet Take 1 tablet by mouth every 8 hours as needed for nausea/vomiting (For chemotherapy induced nausea). FOR NAUSEA pantoprazole DR (PROTONIX) 40 mg tablet Take 40 mg by mouth daily before breakfast. ascorbic acid, vitamin C, (VITAMIN C) 500 mg tablet Take 500 mg by mouth once daily. alpha tocopheryl acetate (VITAMIN E) 400 unit capsule Take 400 Units by mouth once daily. cyanocobalamin (VITAMIN B-12) 1,000 mcg tab Take 500 mcg by mouth once daily. VITAMIN D 50,000 unit capsule 1 capsule one time a week. Ursodiol 500 mg tablet Take 1.5 tablets by mouth twice daily. magnesium oxide 400 mg magnesium tab Take 1 tablet by mouth once daily. CALCIUM CARBONATE (CALCIUM 500 ORAL) Take 1 tablet by mouth once daily. FAMILY HISTORY Problem Relation Age of Onset Diabetes Mother Heart disease Mother Diabetes Father Hypertension Sister Hypertension Brother twin Hearing Loss Maternal Grandmother Heart disease Maternal Grandmother other (Lung Cancer) Maternal Grandfather smoker Diabetes Paternal Grandmother other (Lung Cancer) Paternal Grandfather smoker No Known Problems Son No Known Problems Son Social History Tobacco Use Smoking status: Never Smokeless tobacco: Never Vaping Use Vaping Use: Never used Substance Use Topics Alcohol use: Yes Comment: occasional Drug use: No Review of Systems Constitutional: Positive for activity change, appetite change, chills and fatigue. Negative for fever. Gastrointestinal: Positive for abdominal pain and nausea. Negative for diarrhea and vomiting. Genitourinary: Positive for dysuria, frequency, hematuria and urgency. Negative for difficulty urinating, flank pain, pelvic pain and vaginal discharge. Musculoskeletal: Negative for myalgias. Objective BP 130/88 Pulse 103 Temp 37.4 C (99.4 F) Resp 19 Wt 83.8 kg (184 lb 11.9 oz) SpO2 97% BMI 30.98 kg/m Physical Exam Vitals reviewed. Constitutional: General: She is awake. She is not in acute distress. Appearance: Normal appearance. She is normal weight. She is not ill-appearing, toxic-appearing or diaphoretic. HENT: Head: Normocephalic and atraumatic. Cardiovascular: Rate and Rhythm: Regular rhythm. Tachycardia present. Heart sounds: Normal heart sounds, S1 normal and S2 normal. Heart sounds not distant. No murmur heard. No friction rub. No gallop. No S3 or S4 sounds. Pulmonary: Effort: Pulmonary effort is normal. No tachypnea, bradypnea, accessory muscle usage, prolonged expiration, respiratory distress or retractions. Breath sounds: Normal breath sounds. No stridor or decreased air movement. No decreased breath sounds, wheezing, rhonchi or rales. Chest: Chest wall: No tenderness. Abdominal: General: Abdomen is flat. Bowel sounds are normal. There is no distension. Palpations: Abdomen is soft. There is no mass. Tenderness: There is abdominal tenderness in the left lower quadrant. There is no right CVA tenderness, left CVA tenderness, guarding or rebound. Negative signs include McBurney's sign. Hernia: No hernia is present. Musculoskeletal: General: Normal range of motion. Cervical back: Normal range of motion. Skin: General: Skin is warm and dry. Capillary Refill: Capillary refill takes less than 2 seconds. Coloration: Skin is not jaundiced or pale. Findings: No bruising, erythema, lesion or rash. Neurological: General: No focal deficit present. Mental Status: She is alert and oriented to person, place, and time. Mental status is at baseline. Motor: No weakness. Coordination: Coordination normal. Gait: Gait normal. Psychiatric: Mood and Affect: Mood normal. Behavior: Behavior normal. Behavior is cooperative. Thought Content: Thought content normal. Judgment: Judgment normal. Assessment and Plan ASSESSMENT/PLAN: 1. Urinary frequency - ICD9: 788.41, ICD10: R35.0 (primary diagnosis) Acute - Acute onset urinary frequency and urgency for one week. Reports chills, nausea, fatigue, LLQ pain and one episode of hematuria. - Temp 99.4, pulse 103, BP 130/88, RR 19, SpO2 97% on room air - LCTA, LLQ tenderness, abdomen soft, negative CVA tenderness - UA positive for ailin esterase, hematuria, proteinuria, and glucose >1000. - Patient education for prevention given - UA DIP, URINE (POC) 2. Glucosuria - ICD9: 791.5, ICD10: R81 - Denies history of diabetes - Reports urinary frequency, fatigue, nausea, decreased appetite, and abdominal pain - UA glucose >1000 - Glucose 254 on most recent CMP on 07/05/23 - GLUCOSE, BLOOD (POC)- 339 3. Left lower quadrant abdominal tenderness with rebound tenderness - ICD9: 789.64, ICD10: R10.824 - Reports LLQ pain since Saturday - LLQ tender on exam, abdomen soft - Referred to the ED for further work-up and management 4. Hyperglycemia - ICD9: 790.29, ICD10: R73.9 - Reports urinary frequency, fatigue, nausea, decreased appetite, and abdominal pain - Glucose 254 and potassium 3.2 on most recent CMP on 07/05/23, started on potassium supplements - UA glucose >1000 - GLUCOSE, BLOOD (POC)- 339 - Referred to the ED for further work-up and management Yi Meek Given patient's extensive PMH including current CA treatment on chemo, with trending upward sugar. Recent hypokalemia, Tachycardic and low grade fever, With LLQ abdominal pain. She warrants stat labs and imaging at baseline. Declines EMS Referred to ED TEACHING PROVIDER (Physician/PA/HULLER OPERATOR) NOTE OF PERSONAL INVOLVEMENT IN CARE: I have personally seen and examined the patient and performed the medical decision-making components. I have reviewed the Advanced Practice Registered Nurse (HULLER OPERATOR) Student's documentation and verified the findings in the note as written. Any additions or changes are noted in bold/italics. Signature: Carla Forbes Date: 07/08/2023 Time: 3:57 PM documented in this encounter [facility] 07-08-2023 Discharge summary Note Date/Time July 08, 2023 6:46pm [facility] Medical Records Department [address] [place] [address] Emergency Department Summary 07/08/23 MR#: [id number] Acct: [id number] Name: PAT SORTO Rep #:[id number] : 1960 63 From: Jaquan Nelson DO PCP: Dr. Jacinta Rivas MD Status:RE G ER Location: ED HPI History of Present Illness Chief Complaint: Complaint Narrative Narrative: 63-year-old female presenting with vague complaint of weakness. She states she just feels off. Patient states she woke up this way but feels better now. She denies chest pain or shortness of breath. She denies fevers or chills. Shedenies nausea or vomiting. She does state that she has some mild suprapubic pain which is more increased on the left. She states she [facility] here and had some blood in her urine. She has increased urinaryfrequency but no dysuria. No history of kidney stones. No back or flank pain. No diarrhea or constipation. [facility] Medical History Abnormal mammogram of left breast Breast cancer HTN (hypertension) Home Medications trazodone 50 mg tablet 25 mg PO QHS PRN Sleep 06/07/14 [History Last Taken 06/06/14 22:00] ascorbic acid (vitamin C) 100 mg tablet 500 mg PO QDAY 03/29/17 [History Last Taken Unknown] calcium carbonate 600 mg calcium (1,500 mg) tablet (Calcium) 600 mg PO QDAY 03/29/17 [History Last Taken Unknown] lisinopril 20 mg-hydrochlorothiazide 12.5 mg tablet 1 tab PO QDAY 03/29/17 [History Last Taken Unknown] ursodiol 500 mg tablet (LEENA Forte) 1,500 mg PO QDAY 03/29/17 [History Last Taken Unknown] vitamin E (dl, acetate) 45 mg (100 unit) capsule 400 unit PO QDAY 03/29/17 [History Last Taken Unknown] aspirin 81 mg chewable tablet 81 mg PO ONCE 04/04/17 [History Last Taken 04/16/17] cyanocobalamin (vitamin B-12) 1,000 mcg capsule 1,000 mcg PO DAILY 04/23/17 [History Last Taken Unknown] ergocalciferol (vitamin D2) 1,250 mcg (50,000 unit) capsule (Vitamin D2) 1.25 mgPO TUSA 04/23/17 [History Last Taken Unknown] hydrocodone-acetaminophen 5-325mg 5mg-325mg 1 tab PO Q6H PRN PRN Pain ##10 04/24/17 [Rx Last Taken Unknown] cephalexin 500 mg capsule 500 mg PO Q12 #14 CAPSULES 07/08/23 [Rx Last Taken Unknown] metformin 500 mg tablet,extended release 24 hr 500 mg PO BID #60 tabs 07/08/23 [Rx Last Taken Unknown] Allergy/AdvReac Type Severity Reaction Status Date / Time No Known Allergies Allergy Verified 07/08/23 16:09 Family History Mother Diabetes Heart disease Hypertension CVA (cerebral vascular accident) Father Diabetes Hypertension Surgical History History of section S/P breast biopsy S/P total knee replacement Social History Smoking Status: Never smoker alcohol intake: current alcohol intake frequency: 0-2 drinks per day substance use type: does not use EXAM Physical Exam Const Vital Signs: 07/08/23 16:09 07/08/23 19:00 07/08/23 20:23 Temperature 97.9 F 98.3 F 98.4 F Temperature Source Temporal Temporal Oral Pulse Rate 96 92 71 Respiratory Rate 16 16 16 Blood Pressure 133/90 H 152/89 H 138/74 H Blood Pressure Mean 104 110 95 Pulse Ox 97 97 96 Oxygen Delivery Method Room Air Room Air Positive well nourished General Appearance ED: NAD; Negative for pallor HEENT Reports moist mucous membranes Eyes PERRL and EOMs intact bilaterally Chest Wall inspection of chest normal Resp normal respiratory effort and clear to auscultation bilaterally Auscultation: Negative for rales, rhonchi or wheezes Cardio regular rate and regular rhythm GI GI Narrative: Mild suprapubic tenderness on the left Neuro oriented x3 Sensorium / Orientation: alert Psych mental status grossly normal Skin no rashes or lesions noted General Skin Exam: Negative for jaundice or pallor MDM MDM MDM Narrative Medical decision making narrative: Patient with mild complaints of urine blood in her urine. She states she feels off. Patient denies urinary frequency without dysuria. After discussion patient states that she had blood work done recently which showed her blood sugar was high and she has no history of diabetes. She is not on any medications. She states her blood sugars have been in the 300s. Differential includes new onset diabetes, dehydration, anemia, electro abnormalities, UTI, pyelonephritis. CBC was obtained to assess white blood cell count, hemoglobin, platelets. BMP to assess renal function, electrolytes, glucose, anion gap. Urinalysis to assess for UTI. CBC shows normal white blood cell count. Hemoglobin 10.4 with no recent comparison. Creatinine slightly elevated 1.11 and patient was given IV fluids. Urinalysis shows 500 leukocyte esterase, greater than 100 white blood cells, 2+ bacteria with 0-5 squamous epithelial cells. Patient given Keflex and urine culture sent. Discussed with Dr. Epstein is on-call for her primary care. He recommended starting metformin ER twicedaily as the patient states that metformin would give her stomach issues and tk has stomach issues. Dr. Saha stated that the ER metformin would helpwith the symptoms. Patient also was given Keflex for home. Patient to follow-up next week for diabetic teaching and return precautions discussed. Impression: 1. Hyperglycemia 2. UTI Lab Data Attestation: I reviewed the patient's lab results. Labs: Laboratory Results - last 24 hr 07/08/23 17:25 WBC 8.4 RBC 3.74 L Hgb 10.4 L Hct 32.3 L MCV 86.4 MCH 27.8 MCHC 32.2 RDW Std Deviation 45.2 H RDW Coeff of Rosie 14.3 Plt Count 240 MPV 10.4 Immature Gran % (Auto) 0.200 Neut % (Auto) 77.5 H Lymph % (Auto) 12.7 L Chase % (Auto) 8.5 Eos % (Auto) 0.6 Baso % (Auto) 0.5 Absolute Neuts (auto) 6.5 Absolute Lymphs (auto) 1.06 Nucleated RBC % 0 Sodium 137 Potassium 3.7 Chloride 102 Carbon Dioxide 29.0 Anion Gap 6 BUN 15 Creatinine 1.11 H Estim Creat Clear Calc 56.04 Est GFR (MDRD) Af Amer 64 Est GFR (MDRD) Non-Af 53 L BUN/Creatinine Ratio 13.5 Glucose 294 H Calcium 9.1 Urine Color Yellow Urine Clarity Cloudy Urine pH 6.0 Ur Specific [place] 1.015 Urine Protein 100 H Urine Glucose (UA) 1000 H Urine Ketones Negative Urine Occult Blood 250 H Urine Nitrite Negative Urine Bilirubin Negative Urine Urobilinogen Normal Ur Leukocyte Esterase 500 H Urine RBC 10-25 SEEN Urine WBC >100 SEEN Ur Squamous Epith Cells 0-5 SEEN Amorphous Sediment 1+ URATE Urine Bacteria 2+ Urine Mucus 0 SEEN Discharge Plan Triage Chief Complaint: Complaint ED Provider: Jaquan Nelson Dx/Rx/DC Orders Instructions: ED Diabetic Hyperglycemia, ED Cystitis Female Adult Prescriptions: New metformin 500 mg tablet extended release 24 hr 500 mg PO BID Qty: 60 0RF cephalexin 500 mg capsule 500 mg PO Q12 Qty: 14 0RF No Action aspirin 81 mg tablet,chewable 81 mg PO ONCE lisinopril-hydrochlorothiazide 20-12.5 mg tablet 1 tab PO QDAY vitamin E (dl, acetate) 100 unit capsule 400 unit PO QDAY ascorbic acid (vitamin C) 100 mg tablet 100 mg tablet 500 mg PO QDAY calcium carbonate [Calcium 600] 600 mg calcium (1,500 mg) tablet 600 mg PO QDAY ursodiol [LEENA Forte] 500 mg tablet 1,500 mg PO QDAY trazodone 50 MG tablet 25 mg PO QHS PRN (Reason: Sleep) ergocalciferol (vitamin D2) [Vitamin D2] 50,000 UNIT capsule 1.25 mg PO TUSA cyanocobalamin (vitamin B-12) 1,000 MCG capsule 1,000 mcg PO DAILY hydrocodone-acetaminophen 1 TABLET tablet 1 tab PO Q6H PRN PRN (Reason: Pain) Qty: 10 0RF Primary Care Provider: Jacinta Rivas Referrals: Jacinta Rivas MD [Primary Care Provider] - Disposition Disposition: Home, Self Care What to do if you have Problems For any increased pain, shortness of breath, bleeding, nausea or vomiting, chestpain, or any unexpected problems, contact your Primary Care Provider. Call [facility] ([phone]) or report to the closest Emergency Room. Call 911 if necessary. 07/08/232032 <Electronically signed by Jaquan Nelson DO> Cosigner Signature (if applicable): CC: Dr. Jacinta Rivas MD ~ Signed [facility] Work Phone: [phone] 233-103404-01-2024 Miscellaneous Notes* Telephone Encounter - Kasie Lamb LPN - 07/08/2023 8:50 AM EDT Spoke with pt. Informed Dr. Carrasco noticed on her last few chemistry panels blood glucose is quite high. Advise appointment with PCP's office to review/discuss. In the meantime, avoid sweets and refined sugars. Pt. Voiced understang and will contact her PCP to get scheduled. Kasie Lamb LPN * Telephone Encounter - Serena Carrasco DO - 07/08/2023 6:22 AM EDT I noticed on her last few chemistry panels blood glucose is quite high. Advise appointment with PCP's office to review/discuss. In the meantime, avoid sweets and refined sugars. Serena Carrasco DO documented in this encounterC[facility] History of Present illness Narrative* Michell David - 07/05/2023 8:57 AM EDT Pat Sorto 1960 07/05/2023 Diagnosis: 1) Breast cancer. HPI: The patient is a 63-year-old female who has a past medical history significant for hypertension and primary biliary cirrhosis. She is seen by her mems process engineer approximately once a year and she has had stable findings. Most recent liver chemistries performed at [facility] on 01/10/2017 showed a total bilirubin of 0.3 mg/dL with a direct bilirubin of 0.09 mg/dL. The AST was 19 and the ALT was 23. Alkaline phosphatase was 95. CBC at that time was normal with a white count of 8900. No differential. Hemoglobin 12.2 g/dL platelet count 237,000. Coagulation studies showed a normal INR 1.0 with a PT of 13.0 seconds. Evidently she was on a trip to [place] about 2 1/2 years ago when she developed pleuritic right-sided chest pain. She presented to local ER there. She's not sure what radiographic studies weredone but she was told that there was a concern she had lung cancer and she was to follow-up when she got back home. Over the last 2 years she's had a number of radiographic studies including CT of the chest as well as PET scan last year that showed no evidence of malignancy. She's had pain under left breast that was attributed to rib fracture with healing. Over the last year there's been a lump in lower left breast thought associated to healing underlying rib fracture. Core needle biopsy performed on 03/29/2017: Left breast, core biopsy: Invasive ductal carcinoma, nuclear grade 2 (1.3 cm in greatest length). ER (clone [id number]) >95%, strong SC (clone 16/1E2) >95%, strong Her-2Neu (clone CB11) 0 There was a spiculated mass at the lower outer left breast measuring 2.7 x 1.8 x 3.5 cm with central clip artifact consistent with the biopsy-proven malignancy. It was in the posterior depth but there was no evidence of chest wall involvement. There were no other abnormal areas of enhancement within the left breast. There were 2 abnormally thickened enhancing lymph nodes high in the left axilla that were suspicious for axillary node metastases. There are also several rounded nodes in the left high subpectoral region with the largest measuring 7 mm in short axis. These were noted to be suspicious. A possible 4 mm in short axis left internal mammary node was also appreciated. Full staging workup including CT scans of the chest, abdomen and pelvis as well as brain MRI and whole-body bone scan shows some mild activity in the distal femur on the right. Plain films showed degenerative changes without any osteoblastic or osteolytic activity. The CT scans disclosed 2 hypodense lesions in the liver that on MRI had signal characteristics consistent with hemangioma. Brain MRI was normal. Was at [facility]. Had PET scan on 05/02. Demonstrated stable appearance of FDG uptake in the soft tissue thickenings along posterior left breast prosthesis and also small skin nodule left anterior breast as compared with outside PET/CT on 01/28. Small right axillary node with FDG avid uptake was noted to be stable. This was thought to be reactive rather metastatic disease. No other FDG avid lesions were observed including mediastinal and/or hilar adenopathy. Previous therapy: 1) Neoadjuvant AC followed by Taxol. 2) Underwent a left nipple sparing mastectomy with left axillary lymph node dissection and left armreverse axillary mapping on 10/08/2017. This was done in conjunction with a implant and acellular dermal matrix with a lymphatico-venous bypass to the left axilla. 3) Adjuvant radiation to left chest wall/axilla and supraclavicular area completed 01/02/2018. Pathology from 10/08/2017 surgery: 1. Left axillary contents, excision (A) - Four of five lymph nodes, positive for metastatic carcinoma (4/5) with treatment effect. - Extranodal extension is present. - Biopsy clips and changes consistent with prior biopsy sites. 2. Left breast, mastectomy (B) - Fibrous tumor bed with residual invasive ductal carcinoma, histologic grade 1. - Ductal carcinoma in situ, intermediate nuclear grade, solid type. - Biopsy clip and changes consistent with prior biopsy site. - Please see synoptic report. SYNOPTIC REPORT OF [place] PATHOLOGIC FINDINGS LEFT BREAST: BREAST INVASIVE CARCINOMA WORKSHEET Part: A and B Procedure: Total mastectomy (including nipple-sparing and skin-sparing mastectomy) Specimen Laterality: Left Tumor size: Size of largest invasive carcinoma: Greatest dimension of largest focus of invasion >1 mm: 9 mm Tumor Focality: Single focus of invasive carcinoma Histologic Type of Invasive Carcinoma: Invasive carcinoma of no special type (ductal, not otherwise specified) Histologic Grade: Glandular (Acinar) / Tubular Differentiation: Score 2 Nuclear Pleomorphism: Score 2 Mitotic Rate: Score 1 (<=3 mitosis per mm2) Overall Grade: Grade I Ductal Carcinoma In Situ: DCIS is present in specimen DCIS Nuclear Grade: Grade II (intermediate) Tumor Extension: Skin: Not applicable Nipple: Not applicable Skeletal muscle: Not applicable Invasive Carcinoma Margins: Margins uninvolved by invasive carcinoma Distance from closest margin: 2 mm Closest margin: Inferior radial DCIS Margins: Margins uninvolved by DCIS Distance from closest margin: 5 mm Closest margin: Inferior radial Lymph Nodes: Involved by tumor cells Number of lymph nodes with macrometastases (>2 mm): 4 Number of lymph nodes with micrometastases (>0.2 mm to 2 mm and/or >200 cells): 0 Number of lymph nodes with isolated tumor cells (<= 0.2 mm and <= 200 cells): 0 Size of largest metastatic deposit: 8 mm Extranodal extension present: 1.5 mm Number of lymph nodes examined: 5 Treatment Effect: Treatment effect in the breast Treatment effect in the lymph nodes Probable or definite response to presurgical therapy in the invasive carcinoma Probable or definite response to presurgical therapy in metastatic carcinoma Lymph-Vascular Invasion: Present Pathologic Stage Classification (pTNM,AJCC 8th ed) TNM Descriptor(s): y (post- treatment) Primary Tumor (Invasive Carcinoma) (pT): pT1b Regional Lymph Nodes (pN): Modifier: Not applicable Category (pN): pN2a Distant metastasis: Distant Metastasis (pM) Not applicable/Not confirmed pathologically in this case Estrogen & progesterone receptors: Previously performed (HER2) ERBB2 Status: 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 3) [facility] Stopped 08/2022. Metastatic disease. 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 Was seen by Dr. Bingham for the nodule appreciated on previous exam. Underwent punch biopsy on 07/19/2022. Pathology: Skin, left breast, punch biopsy: -Consistent with metastatic breast adenocarcinoma, see comment. Histologic sections demonstrate a largely unremarkable epidermis overlying a dermis filled with infiltrative cords and nests of pleomorphic epithelioid cells with ductal formation. To better characterize the specimen, ancillary immunohistochemical staining was performed on block [facility]1 [facility] and compared to appropriate reactive controls. The epithelioid cells are positive for CK7 and GATA3. These histologic findings are consistent with metastatic breast adenocarcinoma from the patient's known malignancy. Underwent bronchoscopy on 08/14/2022 where lymph node sampling was performed of a 4L lymph node. Pathology: EBUS TRANSBRONCHIAL FINE NEEDLE ASPIRATE, LYMPH NODE - 4L Positive for malignant cells. Metastatic adenocarcinoma consistent with breast primary (see comment). Previous therapy for metastatic disease: 1) Verzenio. Began began 08/24/2022. Stopped due to fatigue and diarrhea. 2) Faslodex. Began 08/23/2022. 3) Ribociclib. Began 11/19. Current therapy: 1) Exemestane (05/13/2023) and everolimus second week April 2023. Presents for ongoing oncologic management. Interim history: Ms. Sorto presents today for follow up of breast ca on exemestane, everolimus. She denies any recent illnesses, hospitalizations, fevers, chills or NS. Recent return from golf trip to [facility]. Notes sensitivity and blistering of sun exposed areas. Lips very sensitive. Few mouth sores occasionally. Using BMX. No improvement with steroid rinse. Mild to moderate fatigue, generally stable. Falls asleep with 1 mg Ativan at HS and falls asleep easily but typically wakes up about an hour later. Does not feel that 1 mg has been adequate. Used to take trazadone for sleep prior to dx, but that also stopped working. Suggested follow up with PCP. Continues to have urinary urgency at night time. Notes a painful stitch L flank with golf swing over the last few weeks. L side, feels like this is improving. Discussed no indication for imaging at this time with improvement in pain. Advised her to let us know if any changes. Denies bleeding or bruising. PMH, medications and allergies personally reviewed by me today. Any changes documented in appropriate section. ROS: Constitutional: Denies episodes of fever and night sweats. All systems reviewed on 07/05/2023 with pertinent positives and negatives as outlined in the interval history. PHYSICAL EXAM: Vitals: Blood pressure 131/85, pulse 93, temperature 36.6 C (97.9 F), temperature source Temporal, weight 85 kg (187 lb 8 oz), SpO2 98%. -appearing and in no acute distress. EYES: Sclerae are anicteric bilaterally. Oral mucosa somewhat dry. Lips with 2 healing blisters LYMPHATIC: There is no palpable cervical or supraclavicular adenopathy. RESPIRATORY: Inspiratory breath sounds are of normal intensity in all [place]. No rales, wheezes or rhonchi. CARDIOVASCULAR: Rhythm is regular. BREAST: Not performed at today's visit: breast exam at 05/2023 OV ABDOMEN: The abdomen is nondistended, non tender, soft. No organomegaly. No masses, nodules. . Extremities: Trace edema to L wrist SKIN: No jaundice or rash. LABS: ASSESSMENT/PLAN: (C50.512, Z17.0) Malignant neoplasm of lower-outer quadrant of left breast of female, estrogen receptor positive (HCC) (primary encounter diagnosis) (C77.3) 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) Assessment: -cT3 cN3 (high axillary LNs and possible internal mammary mrelyn involvement) MX stage IIIC ER/SC positive, HER2 non overexpressed invasive ductal carcinoma of the right breast. -KPS is 100%. -PET scan indicated disease left chest wall and mediastinal lymph nodes. MRI brain negative. -Biopsy-proven disease recurrence left chest wall inferior and posterior to implant. -ER positive (99% strong staining intensity), SC positive (2% with strong staining intensity), HER22+; nonamplified by FISH testing. 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 -MRI Breast 03/28/2023 demonstrated PD as outlined above. -Therapy was rotated to Faslodex and Afinitor tour. At [facility] they recommended exemestane withAfinitor. Changes were made. -Tolerating exemestane fairly well. Some recurrence of musculoskeletal symptoms but these are not as prominent as they were initially with her AI therapy in the adjuvant setting. -Reviewed PET scan results from [facility] on 05/02/2023. Resolution of FDG avid mediastinal adenopathy. Stable right axillary lymph node suspicious for reactive lymph node. Stable FDG uptake in the posterior tissues of the left breast prosthesis as well as skin nodule in the anterior 7 o'clock position of the breast. -continue with current treatment, -labs generally stable -c/o of now improving L side lower abd pain, worsen with twisting activity - reviewed continue to monitor, advised to call with no improvement in next week or so. Plan: -Continue exemestane and everolimus. -OV with lab work in about a month. -Plan PET scan in about 3 months. (August) -follow up with lymphedema clinic, ref placed by Dr. Carrasco at last OV (I42.7, T45.1X5A) Chemotherapy-induced cardiomyopathy (HCC) Assessment: -Patient had otherwise unexplained persistent tachycardia. Echo showed normal EF but I had reviewedwith cardiology--there was a 10 percent change in the strain pattern suggestive of early cardiomyopathy. Plan: -Change combination LATISHA inhibitor/diuretic to Cozaar. -cont to monitor (N17.9) LAXMI (acute kidney injury) (HCC) Assessment: -Initially observed when she was having severe diarrhea from abemaciclib. -Improved after hydration and dose reducing Verzenio. -Persisted on ribociclib. -labs generally stable today Plan: -Continue to monitor Hypokalemia - k sent today - continue to monitor - RTC in about 4 weeks with labs Michell David APRN.PLATEN GRINDER I spent a total of 30 minutes on the date of the service which included preparing to see the patient, psno-mg-tbvy patient care, completing clinical documentation, performing a medically appropriate examination, and communicating results to the patient/family/caregiver. Portions of this note including HPI, ROS, impression/plan may have been copied forward as to provide important historical information essential in contributing to medical decision making. Documentation has been reviewed and edited as necessary to support clinical decision making for today's visit and to reflect my own independent evaluation of this patient. documented in this encounterC[facility]03-27-2024 Miscellaneous Notes* Telephone Encounter - Bobbi Zarate - 07/03/2023 8:20 AM EDT Patient informed * Telephone Encounter - Karyn Muñoz - 07/03/2023 8:05 AM EDT Left message for patient to return call. When she calls, please advise that Dr. Carrasco would like tosee her at 8:40 instead of 8:20 on 07/04. Karyn Muñoz documented in this encounterC[facility]02-27-2024 Miscellaneous Notes* Telephone Encounter - Kasie Lamb LPN - 06/04/2023 9:18 AM EST Rx faxed for compression sleeve to [facility] as requested. Kasie Lamb LPN * Telephone Encounter - Rea Banda - 06/03/2023 4:51 PM EST When patient checked out we looked for the firsta available for physical therapy and it was after patient left for her golf trip. She didn't want to schedule right now since she wouldn't be able to go before her trip. She wanted to Get the sleeve ordered when I told her first available she said that wouldn't work and she would go to that place up there in [place] to get the sleeve. Thanks, Rea * Telephone Encounter - Serena Carrasco DO - 06/03/2023 4:32 PM EST I placed an order for physical therapy for lymphedema evaluation. I put it in the AVS but had not placed the order at time of OV. Is there now. Serena Carrasco DO documented in this encounterC[facility]02-16-2024 Miscellaneous Notes* Telephone Encounter - Bobbi Zarate - 05/24/2023 4:20 PM EST Patient is calling requesting that prescription go to [facility] in [place] due to complications at pharm. * Telephone Encounter - Michell David - 05/24/2023 12:23 PM EST done * Telephone Encounter - Svetlana Kong LPN - 05/24/2023 11:53 AM EST Please resend Rx to [facility] pharmacy. [address] is unable to compound meds. Svetlana Kong LPN documented in this encounterCleveland [facility]02-16-2024 Miscellaneous Notes* Addendum Note - Svetlana Kong LPN - 05/24/2023 10:52 AM ESTAddended by: SVETLANA KONG on: 05/24/2023 10:52 AM Modules accepted: Orders * Telephone Encounter - Svetlana Kong LPN - 05/24/2023 10:52 AM EST Michell, Can you refill this or does Dr. Mackey have to do it? Svetlana Kong LPN * Telephone Encounter - Michell David - 05/24/2023 8:25 AM EST Absolutely. Signed! * Telephone Encounter - Svetlana Kong LPN - 05/24/2023 7:59 AM EST Michell, Can you please send this since [facility] is out? Svetlana Kong LPN documented in this encounterC[facility]02-[facility]-2024 Miscellaneous Notes* Addendum Note - Serena Carrasco DO - 05/13/2023 1:05 PM ESTAddended by: SERENA CARRASCO on: 05/13/2023 01:05 PM Modules accepted: Orders * Telephone Encounter - Serena Carrasco DO - 05/13/2023 1:03 PM EST I was able to communicate with Dr. Carcamo. His recommendation was to discontinue Faslodex and start Aromasin and continue everolimus. Rx for Aromasin sent. Start now and follow up as scheduled. Serena Carrasco DO * Telephone Encounter - Lisa Malhotra RN - 05/07/2023 2:04 PM EST Call to Breast Center at [facility], , spoke FE Sanders. He provided Dr. Rayo cell number. Given to Dr. Carrasco. Nicki Malhotra RN * Telephone Encounter - Lisa Malhotra RN - 05/07/2023 1:55 PM EST Attempted to call Carla Spears at number provided below. Rings normal and then rings busy. Nicki Malhotra RN Spoke with patient, she will send chart message through [facility]'s [employer] messaging to ask for an alternative number to reach someone in the office. Asked Pat if plan of care, treatment options discussed with her and she said no. She has a follow up video with Dr. Rayo on 05/13/23 and he was hoping to discuss case with Dr. Carrasco prior. She is aware that we have tried to connect. Nicki Malhotra RN * Telephone Encounter - Kasie Lamb LPN - 05/06/2023 4:51 PM EST All numbers except her work number , I get the same [employer] recording. On her work recording it states she is working remotely due to [employer], states you can leave a message or sent info to her via e-mail or my chart. Kasie Lamb LPN * Telephone Encounter - Lisa Malhotra RN - 05/06/2023 4:50 PM EST Spoke with Pat and she will check. Nicki Malhotra RN * Telephone Encounter - Serena Carrasco DO - 05/06/2023 4:36 PM EST I tried calling several times now. After ringing for a while I get a message from [employer] saying the call cannot be completed as dialed please try again later. Perhaps we can get an alternate number? Serena Carrasco DO * Telephone Encounter - Lisa Malhotra RN - 05/03/2023 8:55 AM EST [facility] Coordination FOLLOW-UP NOTE Patient identified by name and date of . YES Spoke to patient Summary: (Reason for follow-up) Patient states she is in [place] at [facility]. She is seeing another oncologist, Dr. Knox. He is recommending for her to stop Faslodex and Afinitor. She would like to cancel her Faslodex appt. tomorrow. Dr. Shook would like to speak to Dr. Carrasco directly about patient. Pat aware that Dr. Carrasco is out for the rest of today (05/02/23) but I will give him an update and facilitate a phone call b/w the [address] Knox nurse: Carla Spears RN. [phone] Care Coordination Plan: as above. Lisa Malhotra RN May 03, 2023 documented in this encounterC[facility] History of Present illness Narrative* Chantale Bundy RN - 05/09/2023 1:55 PM EST IRB#[id number]. LORI 1117: A Randomized, Open-Label, Phase 3 Study of Abemaciclib Combined with Standard Adjuvant Endocrine Therapy versus Standard Adjuvant Endocrine Therapy Alone in Patients with High Risk, Node Positive, Early Stage, Hormone Receptor Positive, Human Epidermal Receptor 2 Negative, Breast Cancer Informed Consent signed on 01/16/2018 prior to any study related procedures not deemed SOC. Randomized on: 01/24/18. ARM: Arm B: Endocrine only. Study ID: [id number] Clinical Trial Draw: Drawn at 9:34AM (4) 6ML EDTA and processed for plasma within the hour per protocol for Disease Recurrence Plasma. 04/04/2023 Stored in -20 freezer until dry ice shipment for bulk with another kit. Shipped today via [employer] [phone] Patient had been unsure if she was willing to submit tissue or blood until today for study. Patientwas agreeable and discussed referral for phase 1 trials. Chantale Bundy RN [phone] documented in this encounterCleveland Clinic [facility] Hospital12-08-2023 Miscellaneous Notes* Telephone Encounter - Serenity Stern RN - 03/15/2023 2:33 PM EST See mychart message 02/22/23 documented in this [facility]12-05-2023 Miscellaneous Notes* Telephone Encounter - Bianca Addison RN - 03/12/2023 3:32 PM EST Reached out to Pat to let her know that I have schedule an MRI and Dr Marcelino on 03/28 at [facility]. Pat verbalized understanding. No further questions. documented in this [facility]11-30-2023 Miscellaneous Notes* Telephone Encounter - eDna Lechuga RN - 03/07/2023 3:39 PM EST Called patient, no answer. Left a VM on patient identified VM stating to push fluids, take imodium as needed, call this nurse with any worsening/new symptoms, follow-up as scheduled. Dena Lechuga RN * Telephone Encounter - Dena Lechuga RN - 03/07/2023 9:27 AM EST [facility] Care Coordination FOLLOW-UP NOTE Patient identified by name and date of . YES Spoke to patient and informed her of Dr. Carrasco's response. Summary: (Reason for follow-up) Patient stated she had 4-5 episodes of diarrhea per day for 4 days. Patient stated the diarrhea would start after eating or dinner and she would have a couple episodes at bedtime. Patient would take imodium, 2 tablets per day. Patient stated the past 2 days she has had formed BMs. On the days shehad diarrhea she would feel a little dizzy and her urine was dark yellow. Patient has been hydrating better and denies dark urine or dizziness at this time. Patient denies fever, chills, N/V, or decrease urine output. Patient will push fluids for the next few days, patient has Gatorade at home and will drink a couple today. This nurse encouraged patient to increase imodium use if needed, can takeup to 8 tablets in a 24 hour period. Patient instructed to call if she has any symptom concerns. Patient stated understanding. Patient verbalized when to seek Medical Attention and an understanding of after- hours phone numberand process: Yes Care Coordination Plan: Will follow up if needed after speaking to Dr. Corwin Lechuga RN March 07, 2023 * Telephone Encounter - Svetlana Kong LPN - 03/07/2023 8:05 AM EST ----- Message from Serena Carrasco DO sent at 03/07/2023 5:12 AM EST ----- Serum Cr elevated a little again. Mg slightly low. Diarrhea? Serena Carrasco DO documented in this encounterCleveland Clinic [facility]11-28-2023 Nurse Note* Kasie Lamb LPN - 03/05/2023 9:22 AM EST Faslodex injection administered,bilateral buttocks, tolerated well, no immediate adverse reactions noted. Kasie Lamb LPN documented in this encounterCleveland Clinic [facility]11-13-2023 History of Present illness Narrative* Myla Springer - 02/18/2023 12:47 PM EST VIRTUAL VISIT PROGRESS NOTE This is a virtual visit using [employer] Zoom Video Visit. It required patient- provider interaction for the medical decision making as documented below. I have communicated my name and active licensure. The patient's identity and physical location wereverified at the time of this visit. Either the patient or their legal traffic representative has been informed of the risks and benefits of -- and alternatives to -- treatment through a remote evaluation andconsents to proceed with the evaluation remotely. Pat Sorto is a 63 year old female seen for b/l foot pain L>R Patient is seen virtually for b/l foot pain. Does take mobic and this does help Is interested in refill. 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 Husam Hart in [place] PAST SURGICAL HISTORY Procedure Laterality Date ARTHRP ACETBLR/PROX FEM PROSTC AGRFT/ALGRFT Right 03/20/2019 Hip replacement, total ARTHRP KNE CONDYLE&PLATU MEDIAL&LAT COMPARTMENTS Left 02/2016 BIOPSY BREAST OPEN INCISIONAL Left 2007 [facility] benign pathology per patient BREAST RECONSTRUCTION Left 2019 fat graft/implant exchange DELIVERY ONLY 1996,1993 , low transverse MASTECTOMY HX Left 2017 AND with immediate reconstruction FAMILY HISTORY Problem Relation Age of Onset Diabetes Mother Heart disease Mother Diabetes Father Hypertension Sister Hypertension Brother twin Hearing Loss Maternal Grandmother Heart disease Maternal Grandmother other (Lung Cancer) Maternal Grandfather smoker Diabetes Paternal Grandmother other (Lung Cancer) Paternal Grandfather smoker No Known Problems Son No Known Problems Son Social History Tobacco Use Smoking status: Never Smokeless tobacco: Never Vaping Use Vaping Use: Never used Substance Use Topics Alcohol use: Yes Comment: occasional Drug use: No Current Outpatient Medications Medication Sig lisinopril-hydroCHLOROthiazide (ZESTORETIC) 20-12.5 mg per tablet Take 1 tablet by mouth once daily. triamcinolone acetonide (KENALOG) 0.1 % cream Apply to affected area two times a day. DULoxetine (CYMBALTA) 30 mg capsule take 1 capsule by mouth once daily magnesium oxide 400 mg magnesium tab Take 1 tablet by mouth once daily. Ribociclib 600 mg/day (200 mg X 3) tablets (KISQALI) Take 3 tablets (600 mg) by mouth once daily. for 21 days. Then take a 7-day rest period to complete a 28- day treatment cycle. ondansetron (ZOFRAN) 8 mg tablet Take 1 tablet by mouth every 8 hours as needed for nausea/vomiting(For chemotherapy induced nausea). FOR NAUSEA traZODone (DESYREL) 50 mg tablet Take 1 tablet by mouth daily at bedtime. pantoprazole DR (PROTONIX) 40 mg tablet Take 40 mg by mouth daily before breakfast. ascorbic acid, vitamin C, (VITAMIN C) 500 mg tablet Take 500 mg by mouth once daily. alpha tocopheryl acetate (VITAMIN E) 400 unit capsule Take 400 Units by mouth once daily. cyanocobalamin (VITAMIN B-12) 1,000 mcg tab Take 500 mcg by mouth once daily. VITAMIN D 50,000 unit capsule 1 capsule one time a week. Ursodiol 500 mg tablet Take 1.5 tablets by mouth twice daily. CALCIUM CARBONATE (CALCIUM 500 ORAL) Take 1 tablet by mouth once daily. No current facility-administered medications for this visit. ALLERGIES Allergen Reactions Amoxicillin Rash rash arms trunk neck face, itching Chills PHYSICAL EXAMINATION: Pain present to b/l midfoot Past xrays reviewed and shows midfoot arthritis ASSESSMENT: (M19.079) Arthritis of midfoot (primary encounter diagnosis) PLAN: Discussed arthritis of midfoot. Would continue with inserts and good supportive shoes Discussed mobic. She has used this in the past. Will prescribe mobic so long as her primary and oncologist are fine with this medication given rise in creatinine. Offered repeat xrays If pain worsens, could consider injection under xray guide There are no Patient Instructions on file for this visit. I spent a total of 12 minutes on the date of the service which included counseling and educating the patient/family/caregiver Myla Springer DPM documented in this encounterCleveland Clinic [facility]11-07-2023 Miscellaneous Notes* Telephone Encounter - Nuzhat Beauchamp LPN - 02/12/2023 4:06 PM EST Referral information and xray faxed to number provided. * Telephone Encounter - Catyh Burr APRN.FLOORING MACHINE FEEDER - 02/12/2023 3:53 PM EST OK, see below * Telephone Encounter - Janee Ray LPN - 02/12/2023 10:15 AM EST Pt is requesting a referral to [facility] for recurring neck pain. She has an appt with them 02/14/23. Pt also requests her thoracic xray from 02/04/23 be faxed as well. Janee Ray LPN documented in this encounterCleveland Clinic [facility] Hospital10-23-2023 History of Present illness Narrative* William Major, RT(R) - 01/28/2023 10:00 AM EDT RADIOLOGY SERVICE PROGRESS NOTE SERVICE DATE: 01/28/2023 SERVICE TIME: 10:10 AM PATIENT IDENTITY VERIFICATION COMPLETED USING TWO (2) STANDARD IDENTIFIERS: Name and Date of confirmed by patient verbally FALL SCREENING: Has the patient had 2 falls in the last year or 1 fall with injury or currently using an Ambulatory Assistive Device (Walker, Cane, Wheelchair, Crutches, etc.)? No PATIENT GENDER DATA: .female : No ALLERGIES: Reviewed and unchanged MEDICATIONS REVIEWED: No PATIENT RELEVANT IMPLANT DATA REVIEWED: Not Applicable CREATININE: Creatinine Date Value Ref Range Status 01/09/2023 1.35 (H) 0.58 - 0.96 mg/dL Final 12/31/2022 1.41 (H) 0.58 - 0.96 mg/dL Final 12/20/2022 1.41 (H) 0.58 - 0.96 mg/dL Final Estimated Glomerular Filtration Rate Date Value Ref Range Status 01/09/2023 44 (L) >=60 mL/min/1.73m Final Comment: Estimated Glomerular Filtration Rate (eGFR) is calculated using the 2020 CKD-EPI creatinine equation. This equation utilizes serum creatinine, sex, and age as parameters. The creatinine assay has traceable calibration to isotope dilution- mass spectrometry. Refer to KDIGO guidelines for clinical interpretation. In patients with unstable renal function, e.g. those with acute kidney injury, the eGFRmay not accurately reflect actual GFR. eGFR- Date Value Ref Range Status 02/15/2021 >60 Final P.O.C.T. RESULTS: N/A January 28, [address] PERFORMED: No IV SITE: Ambulatory: NM only - direct IV injection in the Right antecubital site POST EXAM PIV STATUS: Discontinued PROCEDURE TYPE: NM INJECT: PET/CT BODY SCAN. 9.1 mCi F18 FDG. No other medications given.. ADMINISTRATION TIME: 1004 PATIENT DISCHARGED TO: Ambulatory patient, left NM department area. A Diagnostic radioactive procedure has taken place, with no further precautions necessary other than routine body substance precautions. More information regarding radiation safety can be found usingthis link: [email or web address] SIGNATURE: RT Darlin(R) PATIENT NAME: Pat Sorto DATE: January 28, 2023 TIME: 10:10 AM PAGER/CONTACT #: documented in this encounterCleveland Clinic [facility] Hospital10-13-2023 Miscellaneous Notes* Telephone Encounter - Kasie Lamb LPN - 01/18/2023 11:05 AM EDT See refill encounter. Kasie Lamb LPN * Telephone Encounter - Bobbi Zarate - 01/18/2023 10:42 AM EDT Patient called requesting refill of Lisinopril 20-12.5 mg. Patient requesting to be sent to [facility] in [place]. Unable to find medication on med list. Pt called PCP. She stated Dr. Carrasco refills. Patient going out of town tomorrow. Requesting to draft roller picker today. documented in this encounterCleveland Clinic [facility] Hospital10-11-2023 Miscellaneous Notes* Telephone Encounter - Edilia Craven - 01/16/2023 9:31 AM EDT I called and spoke to Pat and let her know that her PET scan has been authorized, she stated understanding. She is not able to come in on 01/21/23 for PET scan because she will be out of town, she did not want to schedule at another location so she stated she wanted to just keep the PET scan as schedule for 01/28/23. Edilia Herrera Pss * Telephone Encounter - Meri Buchanan - 01/09/2023 2:29 PM EDT Due to PET order being routine and pt's ins had to schedule scan at least 10 days out. Scheduled for first available on 01/28 Keep this encounter open so once it is approved we can try and get pt scheduled soon. OV & Labs scheduled on 02/07 as directed in AVS * Telephone Encounter - Meri Buchanan - 01/09/2023 1:54 PM EDT Check out comments: - Continue monthly faslodex. - PET scan soon. - Needs OV with Dr. Carrasco on Feb.07-same day as faslodex with CBC/CMP/Mag. - Follow up as scheduled otherwise. - Pt. aware to call office with any questions/concerns. * Telephone Encounter - Kassy Raman APRN.CNP - 01/09/2023 12:25 PM EDT Discussed plan with Dr. Carrasco. Please add PET scan soon-Meraz. Pt. aware this has been ordered. Also, per Dr. Carrasco add cystatin lab with each lab draw. Thank you. Kassy Raman APRN.PLATEN GRINDER documented in this encounterCleveland Clinic Av[facility] Hospital10-03-2023 Miscellaneous Notes* Telephone Encounter - Mino Rosales LISW - 01/08/2023 11:26 AM EDT SOCIAL WORK FOLLOW UP NOTE: [facility] Date of service: January 08, 2023 Pat Sorto is being seen for a follow up social work visit. Today's visit includes: patient TOPICS ADDRESSED: SW met with pt and reviewed needed paperwork for time off work. SW completed paperwork, had physician review and sign, and successfully faxed this date. Originals sent to internal scanning. Pt denied any further needs at this time. PLAN: Continue follow up as needed F/U APPOINTMENT: PRN Assigned SW listed in Care Team tab: Yes BESSY Holley-Maggi documented in this encounterCleveland Clinic Avon Hospital09-22-2023 Miscellaneous Notes* Telephone Encounter - Karyn Muñoz - 12/28/2022 10:20 AM EDT Spoke with patient and scheduled. Karyn Muñoz * Telephone Encounter - Анна Peck LPN - 12/27/2022 4:54 PM EDT Pt notified. OK to schedule. Анна Peck LPN * Telephone Encounter - Serena Carrasco DO - 12/27/2022 4:46 PM EDT Can let her know the alternative test for kidney function was good. Okay to proceed with Zometa. My signature documented in this encounterCleveland Clinic Avon Hospital09-20-2023 History of Present illness Narrative* Brindley, Sulma, RN - 12/26/2022 2:57 PM EDT Jason held per order Dr Carrasco. Labs drawn documented in this encounterCleveland Clinic Avon Hospital09-12-2023 Miscellaneous Notes* Telephone Encounter - Meri Buchanan - 12/18/2022 9:11 AM EDT PT scheduled as directed * Telephone Encounter - Kasie Lamb LPN - 12/18/2022 8:31 AM EDT Spoke with pt. , she informed to schedule 12/20 @ 11:30 am lab appt. PSS please schedule Kasie Lamb LPN * Telephone Encounter - Serena Carrasco DO - 12/17/2022 5:51 PM EDT Recheck BMP and phosphorus this . Serena Carrasco DO documented in this encounterCleveland Clinic Avon Hospital09-12-2023 Miscellaneous Notes* Telephone Encounter - Rea Banda - 12/18/2022 7:05 AM EDT Ok. I will let her know. Thank you, Rea * Telephone Encounter - Svetlana Kong LPN - 12/17/2022 4:47 PM EDT Yes. Svetlana Kong LPN * Telephone Encounter - Rea Banda - 12/17/2022 4:22 PM EDT Pt asking if she needs to have labs on both 12/31 and 01/10? Thanks Rea documented in this encounterCleveland Clinic [facility]on Hospital09-11-2023 History of Present illness Narrative* Serena Carrasco, - 12/17/2022 4:02 PM EDT Diagnosis: 1) Breast cancer. HPI: The patient is a 62-year-old postmenopausal female who has a past medical history significant for hypertension and primary biliary cirrhosis. She is seen by her mems process engineer approximately once ayear and she has had stable findings. Most recent liver chemistries performed at [facility] on 01/10/2017 showed a total bilirubin of 0.3 mg/dL with a direct bilirubin of 0.09 mg/dL. The AST was 19 and the ALT was 23. Alkaline phosphatase was 95. CBC at that time was normal with a white count of 8900. No differential. Hemoglobin 12.2 g/dL platelet count 237,000. Coagulation studiesshowed a normal INR 1.0 with a PT of 13.0 seconds. Evidently she was on a trip to [place] about 2 1/2 years ago when she developed pleuritic right-sided chest pain. She presented to local ER there. She's not sure what radiographic studies weredone but she was told that there was a concern she had lung cancer and she was to follow-up when she got back home. Over the last 2 years she's had a number of radiographic studies including CT of the chest as well as PET scan last year that showed no evidence of malignancy. She's had pain under left breast that was attributed to rib fracture with healing. Over the last year there's been a lump in lower left breast thought associated to healing underlying rib fracture. Core needle biopsy performed on 03/29/2017: Left breast, core biopsy: Invasive ductal carcinoma, nuclear grade 2 (1.3 cm in greatest length). ER (clone [id number]) >95%, strong SC (clone 16/1E2) >95%, strong Her-2Neu (clone CB11) 0 There was a spiculated mass at the lower outer left breast measuring 2.7 x 1.8 x 3.5 cm with central clip artifact consistent with the biopsy-proven malignancy. It was in the posterior depth but there was no evidence of chest wall involvement. There were no other abnormal areas of enhancement within the left breast. There were 2 abnormally thickened enhancing lymph nodes high in the left axilla that were suspicious for axillary node metastases. There are also several rounded nodes in the left high subpectoral region with the largest measuring 7 mm in short axis. These were noted to be suspicious. A possible 4 mm in short axis left internal mammary node was also appreciated. Full staging workup including CT scans of the chest, abdomen and pelvis as well as brain MRI and whole-body bone scan shows some mild activity in the distal femur on the right. Plain films showed degenerative changes without any osteoblastic or osteolytic activity. The CT scans disclosed 2 hypodense lesions in the liver that on MRI had signal characteristics consistent with hemangioma. Brain MRI was normal. Previous therapy: 1) Neoadjuvant AC followed by Taxol. 2) Underwent a left nipple sparing mastectomy with left axillary lymph node dissection and left armreverse axillary mapping on 10/08/2017. This was done in conjunction with a implant and acellular dermal matrix with a lymphatico-venous bypass to the left axilla. 3) Adjuvant radiation to left chest wall/axilla and supraclavicular area completed 01/02/2018. Pathology from 10/08/2017 surgery: 1. Left axillary contents, excision (A) - Four of five lymph nodes, positive for metastatic carcinoma (4/5) with treatment effect. - Extranodal extension is present. - Biopsy clips and changes consistent with prior biopsy sites. 2. Left breast, mastectomy (B) - Fibrous tumor bed with residual invasive ductal carcinoma, histologic grade 1. - Ductal carcinoma in situ, intermediate nuclear grade, solid type. - Biopsy clip and changes consistent with prior biopsy site. - Please see synoptic report. SYNOPTIC REPORT OF [facility] PATHOLOGIC FINDINGS LEFT BREAST: BREAST INVASIVE CARCINOMA WORKSHEET Part: A and B Procedure: Total mastectomy (including nipple-sparing and skin-sparing mastectomy) Specimen Laterality: Left Tumor size: Size of largest invasive carcinoma: Greatest dimension of largest focus of invasion >1 mm: 9 mm Tumor Focality: Single focus of invasive carcinoma Histologic Type of Invasive Carcinoma: Invasive carcinoma of no special type (ductal, not otherwise specified) Histologic Grade: Glandular (Acinar) / Tubular Differentiation: Score 2 Nuclear Pleomorphism: Score 2 Mitotic Rate: Score 1 (<=3 mitosis per mm2) Overall Grade: Grade I Ductal Carcinoma In Situ: DCIS is present in specimen DCIS Nuclear Grade: Grade II (intermediate) Tumor Extension: Skin: Not applicable Nipple: Not applicable Skeletal muscle: Not applicable Invasive Carcinoma Margins: Margins uninvolved by invasive carcinoma Distance from closest margin: 2 mm Closest margin: Inferior radial DCIS Margins: Margins uninvolved by DCIS Distance from closest margin: 5 mm Closest margin: Inferior radial Lymph Nodes: Involved by tumor cells Number of lymph nodes with macrometastases (>2 mm): 4 Number of lymph nodes with micrometastases (>0.2 mm to 2 mm and/or >200 cells): 0 Number of lymph nodes with isolated tumor cells (<= 0.2 mm and <= 200 cells): 0 Size of largest metastatic deposit: 8 mm Extranodal extension present: 1.5 mm Number of lymph nodes examined: 5 Treatment Effect: Treatment effect in the breast Treatment effect in the lymph nodes Probable or definite response to presurgical therapy in the invasive carcinoma Probable or definite response to presurgical therapy in metastatic carcinoma Lymph-Vascular Invasion: Present Pathologic Stage Classification (pTNM,AJCC 8th ed) TNM Descriptor(s): y (post- treatment) Primary Tumor (Invasive Carcinoma) (pT): pT1b Regional Lymph Nodes (pN): Modifier: Not applicable Category (pN): pN2a Distant metastasis: Distant Metastasis (pM) Not applicable/Not confirmed pathologically in this case Estrogen & progesterone receptors: Previously performed (HER2) ERBB2 Status: Previously performed Grain Elevator Superintendent Tumor Block: Specify: B3 Residual tumor burden: Tumor bed dimension #1: 8 mm Tumor bed dimension #2: 5 mm Overall tumor cellularity 50% Percentage in situ 3% Comment: Please see [id number] for the results of estrogen and progesterone receptors and HER2 studies. 3) Anastrozole on clinical trial. Stopped 08/2022. Metastatic disease. 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 Was seen by Dr. Bingham for the nodule appreciated on previous exam. Underwent punch biopsy on 07/19/2022. Pathology: Skin, left breast, punch biopsy: -Consistent with metastatic breast adenocarcinoma, see comment. Histologic sections demonstrate a largely unremarkable epidermis overlying a dermis filled with infiltrative cords and nests of pleomorphic epithelioid cells with ductal formation. To better characterize the specimen, ancillary immunohistochemical staining was performed [facility] block [facility] and compared to appropriate reactive controls. The epithelioid cells are positive for CK7 and GATA3. These histologic findings are consistent with metastatic breast adenocarcinoma from the patient's known malignancy. Underwent bronchoscopy on 08/14/2022 where lymph node sampling was performed of a 4L lymph node. Pathology: EBUS TRANSBRONCHIAL FINE NEEDLE ASPIRATE, LYMPH NODE - 4L Positive for malignant cells. Metastatic adenocarcinoma consistent with breast primary (see comment). Previous therapy for metastatic disease: 1) Verzenio. Began began 08/24/2022. Stopped due to fatigue and diarrhea. Current therapy: 1) Faslodex. Began 08/23/2022. 2) Ribociclib. Began 11/19. Presents for ongoing oncologic management. Interim history: She is tolerating ribociclib better than abemaciclib. Mild fatigue is her only side effect. No nausea. No diarrhea. No cough, wheezing, shortness of breath with moderate exertion or chest pain. PMH, medications and allergies personally reviewed by me today. Any changes documented in appropriate section. ROS: Constitutional: Denies episodes of fever and night sweats. Neuro: Denies YOUSIF, vertigo, dizziness and imbalance. HEENT: No recent change in voice, vision or hearing. Resp: See HPI. CVS: See HPI.. GI: Denies dysgeusia. Denies symptoms of stomatitis. Denies dysphagia and odynophagia. Denies reflux. : Denies dysuria or gross hematuria. No symptoms of bladder outlet obstruction. Endo: Denies polyuria and polydipsia. Denies heat and cold intolerance. Musculoskeletal: Improvement in previous musculoskeletal side effects from anastrozole. Derm: Denies rash. Denies jaundice and diffuse pruritis. Heme: Denies unusual bleeding and unexplained bruising. Psych: Normal mood. PHYSICAL EXAM: Vitals: Blood pressure 110/67, pulse 73, temperature 36.4 C (97.6 F), temperature source Temporal, weight 86.4 kg (190 lb 8 oz), SpO2 98 %. Fatigued-appearing and in no acute distress. EYES: Sclerae are anicteric bilaterally. Oral mucosa somewhat dry. LYMPHATIC: There is no palpable cervical or supraclavicular adenopathy. No axillary adenopathy. RESPIRATORY: Inspiratory breath sounds are of normal intensity in all [place]. No rales, wheezes or rhonchi. CARDIOVASCULAR: Rhythm is regular. 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 Left sided implant remains contracted. Stable less than BB sized palpable nodules along the superior margin of the breast implant. There is a new less than BB size small nodule mid central upper breast. Subcutaneous mobile nodule inferior side left breast implant is papular now and measures approximately 7 mm.. The scarred tissue in lateral IMF is less prominent than previously. There is tenderness around most of the implant. ABDOMEN: The abdomen is nondistended. No organomegaly. No tenderness. Extremities: No swelling or edema. SKIN: No jaundice or rash. LABS: Component Latest Ref Rng & Units 12/17/2022 WBC 3.70 - 11.00 k/uL 5.03 RBC 3.90 - 5.20 m/uL 3.09 (L) Hemoglobin 11.5 - 15.5 g/dL 10.6 (L) Hematocrit 36.0 - 46.0 % 30.8 (L) MCV 80.0 - 100.0 fL 99.7 MCH 26.0 - 34.0 pg 34.3 (H) MCHC 30.5 - 36.0 g/dL 34.4 RDW-CV 11.5 - 15.0 % 14.3 Platelet Count 150 - 400 k/uL 241 MPV 9.0 - 12.7 fL 8.6 (L) Neut% % 42.9 Abs Neut (ANC) 1.45 - 7.50 k/uL 2.16 Lymph% % 40.4 Abs Lymph 1.00 - 4.00 k/uL 2.03 Chase% % 13.9 Abs Chase <0.87 k/uL 0.70 Eosin% % 1.2 Abs Eosin <0.46 k/uL 0.06 Baso% % 1.2 Abs Baso <0.11 k/uL 0.06 Immature Gran % % 0.4 IMMATURE GRANS (ABS) <0.10 k/uL <0.03 NRBC /100 WBC 0.0 Absolute nRBC <0.01 k/uL <0.01 DTYPE Auto Protein, Total 6.3 - 8.0 g/dL 7.2 Albumin 3.9 - 4.9 g/dL 4.2 Calcium 8.5 - 10.2 mg/dL 8.9 Bilirubin, Total 0.2 - 1.3 mg/dL 0.2 Alkaline Phosphatase 34 - 123 U/L 67 AST 13 - 35 U/L 18 ALT 7 - 38 U/L 12 Glucose 74 - 99 mg/dL 72 (L) BUN 7 - 21 mg/dL 27 (H) Creatinine 0.58 - 0.96 mg/dL 1.23 (H) Sodium 136 - 144 mmol/L 139 Potassium 3.7 - 5.1 mmol/L 3.6 (L) Chloride 97 - 105 mmol/L 102 CO2 22 - 30 mmol/L 28 Anion Gap 9 - 18 mmol/L 9 eGFR >=60 mL/min/1.73m 49 (L) Magnesium 1.7 - 2.3 mg/dL 1.9 Phosphorus 2.7 - 4.8 mg/dL 2.4 (L) IMAGING: PET 07/31/2022: 1. NECK: No FDG avid neoplastic process. No mass, adenopathy, or fluid collection. 2. CHEST: Hypermetabolic small ill-defined soft tissue density in the left inferolateral aspect of the left breast prosthesis, concerning for malignancy/recurrence of malignancy in this region. Hypermetabolic mediastinal and left hilar lymph nodes, concerning for metastatic disease. 3. ABDOMEN/PELVIS: No FDG avid neoplastic process. No mass, adenopathy, or fluid collection. 4. EXTREMITIES/SKELETON: No FDG avid osseous process. No destructive/traumatic bony abnormality. 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 -KPS is 100%. -PET scan indicated disease left chest wall and mediastinal lymph nodes. MRI brain negative. -Biopsy-proven disease recurrence left chest wall inferior and posterior to implant. -ER positive (99% strong staining intensity), SC positive (2% with strong staining intensity), HER22+; nonamplified by FISH testing. 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 -Tolerating Faslodex symptomatically very well. -Tolerating ribociclib better than abemaciclib. -Reviewed lab work. Plan: -Continue Faslodex monthly. -Okay to begin neck cycle of ribociclib today. -PET and MRI breast in about 2 months. -OV with lab work 01/10 when due for next Faslodex. (I42.7, T45.1X5A) Chemotherapy-induced cardiomyopathy (HCC) Assessment: -Patient had otherwise unexplained persistent tachycardia. Echo showed normal EF but I had reviewedwith cardiology--there was a 10 percent change in the strain pattern suggestive of early cardiomyopathy. -Blood pressure normal today. Plan: -Monitor EKG as per ribociclib. (N17.9) LAXMI (acute kidney injury) (HCC) Assessment: -Initially observed when she was having severe diarrhea from abemaciclib. -Improved after hydration and dose reducing Verzenio. -Persists on ribociclib. -Data available suggesting abemaciclib can inhibit tubular creatinine secretion thus increasing serum creatinine without affecting GFR. Plan: -Continue to monitor for now. Portions of this documentation were copied and pasted from previous office visit notes in order to provide a cohesive continuity of the history. The note has been reviewed and edited and updated as necessary. I spent a total of 30 minutes on the date of the service which included preparing to see the patient, [id number] patient care, completing clinical documentation, obtaining and/or reviewing separately obtained history, performing a medically appropriate examination, counseling and educating the pat ient/family/caregiver, ordering medications, tests, or procedures, communicating with other HCPs (not separately reported), and communicating results to the patient/family/caregiver. Serena Carrasco DO documented in this encounterC[facility] Nurse Note* Kasie Lamb LPN - 12/13/2022 9:44 AM EDT faslodex injection administered,bilateral buttocks, tolerated well, no immediate adverse reactions noted. Kasie Lamb LPN documented in this encounterC[facility]-23-[facility]23 Miscellaneous Notes* Telephone Encounter - Meri Buchanan - 11/28/2022 2:21 PM EDT Spoke with pt, informed of apts and pt stated that those will work * Telephone Encounter - Meri Buchanan - 11/28/2022 2:17 PM EDT Pt scheduled as directed below * Telephone Encounter - Serena Carrasco DO - 11/28/2022 1:33 PM EDT Yes, agree. Thank you. Serena Carrasco DO * Telephone Encounter - Dena Lechuga RN - 11/28/2022 11:28 AM EDT See monitoring parameters copied into previous note per [employer]. Patient will need: CBC & CMP (every 2 weeks for the first 2 cycles, at the beginning of each subsequent 6 cycles),phosphorous and magnesium- beginning of first 6 cycles, had cbc/cmp/mg/phos completed 11/06/22. No hep remote panel completed in the past year, needs one at baseline. ECG- Day 14 and beginning of C2 (can do day of OV) *Patient started/will start taking ribociclib on 11/20/22, off week will be: 12/11- 12/17, C2/D1 starts on 12/18.* Dr. Carrasco: please review lab instructions and advise if any corrections need to be made. Orders pended for your review. PSS, please schedule: 12/03/22- CBC/CMP/Hep remote panel/ECG 12/17/22- CBC/CMP/Phosphorous/Magnesium/ECG/OV (move OV from 12/20 to 12/17) 12/31/22- CBC/CMP Thank you. Dena Lechuga RN * Telephone Encounter - Dena Lechuga RN - 11/28/2022 11:20 AM EDT Monitoring Parameters CBC (baseline, every 2 weeks for the first 2 cycles, at the beginning of each subsequent 4 cycles and as clinically necessary); LFTs (baseline, every 2 weeks for the first 2 cycles, at the beginning of each subsequent 4 cycles and as clinically necessary; if grade 2 or higher abnormalities occur, monitor more frequently); serum electrolytes (including potassium, magnesium, calcium, and phosphorous) prior to treatment, at the beginning of the first 6 cycles, and as clinically indicated. Evaluatepregnancy status prior to treatment (in patients who could become ). Monitor ECG (prior to treatment initiation; repeat on day 14 of cycle 1, at the beginning of cycle 2, and as clinically indicated; if QTcF is prolonged at any time during treatment, monitor ECG more frequently). Monitor for signs/symptoms of dermatologic toxicity and interstitial lung disease/pneumonitis. Monitor adherence. The [place] [employer] hepatitis B virus (HBV) screening and management provisional clinical opinion (ASCO [[place] 2020]) recommends HBV screening with hepatitis B surface antigen, hepatitis B core antibody, total Ig or IgG, and antibody to hepatitis B surface antigen prior to beginning (or at the beginning of) systemic anticancer therapy; do not delay treatment for screening/results. Detection of chronic or past HBV infection requires a risk assessment to determine antiviral prophylaxis requirements, monitoring, and follow-up. * Telephone Encounter - Dena Lechuga RN - 11/28/2022 11:05 AM EDT ORAL ANTI-CANCER AGENTS FOLLOW-UP PHONE CALL/VISIT Patient identified by name and date of . YES patient started on 11/20/22. Patient is on cycle 1, week 2, day 9 of Ribociclib for Breast Cancer. SYMPTOM ASSESSMENT Headache: Yes sometimes after I take the medicine. Lasts a couple hours. Patient stated laying down helps. Patient denies taking pain medicine. 2/10 aching, no particular location. Visual Changes: Yes sometimes my vision gets a little blurry. Dizziness: No Do you have any periods of confusion? No Mood changes: No Mouth or throat pain: No Appetite: no changes in appetite, appetite good Taste changes: No Nausea: No Vomiting: No Heartburn: No. Weight gain/loss: Yes appetite has improved, gained 4-5 lbs Episodes of palpitations/chest discomfort/pressure/pain heart palpitations, sometimes, doesn't notice on a regular basis, sitting and feels her heart beating faster. Shortness of breath: No Cough: No Diarrhea: no Constipation: no Bladder/Urinary Changes: None Pain: No=0 (pain 0 on a scale of 0-10). Fever: No Chills: No Cold sensitivity: No Numbness/weakness: No Edema: No Skin changes: No Itching: No Yellowing of skin or eyes: No Musculoskeletal/joint changes/issues No Bleeding issues: No, bruises easier Activity Level: good Do you need to take naps? Less than 30 minutes some days. Does the patient need interventions or same day appointment:No ADDITIONAL FOLLOW UP: The next outreach call is due on: TBD and was scheduled patient instucted to call with any symptom concerns or questions. The following lab tests are due: every 2 weeks, will set appointments up. Verified patient is aware of next appointment in the cancer center: Yes. Verified patient verbalized how to correctly refill the oral agent prescription. Yes Does the patient have any financial difficulties affording this medication? No Patient verbalizes understanding of when to seek Medical Attention? YES Patient verbalizes understanding of after-hours and weekend phone number? YES Patient verbalized importance of medication compliance in taking the oral agent as prescribed. Patient instructed to call if unable to comply. Dena Lechuga RN ORAL ANTI-CANCER AGENTS EDUCATION patient called today for oral medication education for Ribociclib for Breast Cancer READINESS TO LEARN Cognitive Ability: Alert and oriented Motivation to Learn: Interested Family Support: Unable to assess - Family not present Instruction Provided to: Patient Patient learns best by: Multiple Methods Factors affecting learning: None Physical limitation affecting learning: None BARCLAY ASSESSMENT: 1.) Verified that patient knows that the oral agents are for cancer and are taken by mouth. Yes 2.) Medication reconciliation completed during visit. No 3.) Patient is able to swallow pills. Yes 4.) Patient is able to read the drug label/information. Yes 5.) Patient is able to open the medication bottles and packages. Yes 6.) Has patient taken other pills for cancer? YES, please explain: verzenio stopped d/t side effects. 7.) Is patient experiencing any symptoms that would affect their ability to keep down pills, for example nausea or vomiting? No 8.) Verified that patient understands prescription delivery, benefit investigation and refill process. Yes PATIENT EDUCATION: 1.) Verified that patient attended individualized instruction on chemotherapy taught by a nurse. Yes 2.) Verified that patient received Chemotherapy Safety in the Home handout, ChemoCare Medication Information handout: ribociclib, Eating Hints Booklet, and ACS Oral Chemotherapy booklet: Yes mailed out to patient DRUG-SPECIFIC EDUCATION: 1.) Verified that patient knows the drug name. Yes 2.) Verified patient understands the dose and schedule of oral chemo agent:with water, with or without food. Yes 3.) Verified patient knows what to do if a medication dose is missed. Yes 4.) Verified patient understands where to store the drug. Yes 5.) Verified patient understands potential side effects and how to manage them. Yes Nausea , Vomiting, Diarrhea, Neutropenia, Thrombocytopenia, Fatigue, and Rash 6.)Verified that patient understands handling precautions of oral chemo agent. Yes 7.) Verified that patient understands when and whom to call with questions. Yes 8.) Verified that patient understands where and how to return drug. Yes EVALUATE: Patient was able to demonstrate an understanding of all the above education using the teach-back method. Yes Patient instructed to call us with any questions, concerns, and/or unresolved symptoms. Will continue to follow up with patient and provide reinforcement of teaching topics as needed. Total time spent with patient: 20 minutes Total time spent on encounter: 25 minutes Dena Lechuga RN documented in this encounterC[facility]08-10-2023 History of Present illness Narrative* Анна Peck LPN - 11/15/2022 9:23 AM EDT Pt here for injection of Faslodex. Given IM in bilateral buttocks. Pt tolerated well. Анна Peck LPN documented in this encounterC[facility]08-03-2023 Miscellaneous Notes* Telephone Encounter - Анна Peck LPN - 11/08/2022 8:29 AM EDT Pt notified and voices understanding. Анна Peck LPN * Telephone Encounter - Serena Carrasco DO - 11/07/2022 5:32 PM EDT Her serum creatinine is improving but not yet normal. There is another phone note from today indicating diarrhea has resolved. Please encourage her to continue liberal hydration. Serena Carrasco DO documented in this encounterC[facility]08-02-2023 Miscellaneous Notes* Telephone Encounter - Анна Peck LPN - 11/07/2022 3:33 PM EDT Pt notified that Slow-Mag is OTC and Kisqali will be shipped to her. pt voices understanding. Анна Peck LPN * Telephone Encounter - Bobbi Zarate - 11/07/2022 2:54 PM EDT Relayed message to patient. Scheduled Lab as requested. Patient is asking that Slow Mag be sent to [facility] in [place]. Patient also asking if rx for Kisqali gets shipped to her or if it goes to pharm. Please advise * Telephone Encounter - Rea Banda - 11/07/2022 2:53 PM EDT Lab appointment scheduled on 11/15 Rea * Telephone Encounter - Анна Peck LPN - 11/07/2022 2:09 PM EDT PSS please make lab apt. Left VM for pt to return call to office regarding mag. Анна Peck LPN * Telephone Encounter - Serena Carrasco DO - 11/07/2022 1:45 PM EDT Advise her to start Slow-Mag 1 tablet twice daily. When she is here on 11/15, recheck CBC/CMP/Mg. She can discontinue Slow-Mag if magnesium level on 11/15 back in normal range. Serena Carrasco DO * Telephone Encounter - Mino Avalos RN - 11/07/2022 12:24 PM EDT Patient is here for hydration and magnesium. Should she come back to get labs done again tomorrow? Patient is not on oral magnesium but states that her diarrhea has resolved. documented in this encounterC[facility]08-02-2023 Miscellaneous Notes* Telephone Encounter - Karyn Muñoz - 11/07/2022 8:32 AM EDT Scheduled as directed. Karyn Muñoz * Telephone Encounter - Serena Carrasco DO - 11/07/2022 8:21 AM EDT I put in an order for a stat BMP if needed. Serena Carrasco DO * Telephone Encounter - Svetlana Kong LPN - 11/07/2022 8:11 AM EDT PSS- please schedule patient for a lab appointment for TODAY at 9:45 BMP(S) and on the treatment schedule for hydration and magnesium at 10:00. Patient is aware. Patient's diarrhea has subsided for the most part. Some days she doesn't have any and some days shehas about 2 episodes, nothing like before. Svetlana Kong LPN * Telephone Encounter - Serena Carrasco DO - 11/06/2022 4:57 PM EDT Her labs today show she is still dehydrated and her magnesium is very low. Return tomorrow for morehydration and magnesium administration. Repeat BMP. Is she still having diarrhea? Serena Carrasco DO documented in this encounterC[facility]08-01-2023 Miscellaneous Notes* Telephone Encounter - Tye Daniel [facility] - 11/06/2022 2:07 PM EDT Images from the original note were not included. [facility] received prescription(s) for Kisqali from Dr. Carrasco's office. Benefits investigation was conducted, indicating that a prior authorization is not required at this time per patient's plan with [employer]. However, s/he is required to use [facility] to fill this medication. Will queue prescription(s) to go to designated specialty pharmacy. For reference, their pharmacy phone number is . No further action by [facility] Specialty. Tye Daniel, PharmD Clinical Pharmacist, Oncology [facility] P: , F: Pool: P [facility] Pool #: [id number] documented in this encounterCleveland Clinic [facility]08-01-2023 History of Present illness Narrative* Charlene Kincaid RN - 11/06/2022 1:31 PM EDT EKG completed per phone note. documented in this encounterC[facility]07-27-2023 Miscellaneous Notes* Telephone Encounter - Lisa Malhotra RN - 11/01/2022 4:26 PM EDT Patient aware of message, labs, EKG and new Rx. Questions answered and agreeable with plan. Nicki Malhotra RN * Telephone Encounter - Serena Carrasco DO - 11/01/2022 4:08 PM EDT Going to rotate therapy from Verzenio to [facility]. Rx sent to specialty pharmacy. When she is here on Saturday, add labs filed under this encounter and also obtain baseline EKG. Serena Carrasco DO documented in this encounterC[facility]07-20-2023 Miscellaneous Notes* Telephone Encounter - Bianca Addison RN - 10/25/2022 12:44 PM EDT Spoke with Pat regarding when she should return to see Dr Bingham. Advised that per Dr Bingham, Willie will reach out to us and let us know when we need to see her back. Pat verbalized understanding. No further questions. documented in this encounterCleveland Clinic [facility]07-13-2023 Nurse Note* Kasie Moraes LPN - 10/18/2022 9:37 AM EDT faslosex injection administered, bilateral buttocks,tolerated well, no immediate adverse reactions noted. Kasie Moraes LPN documented in this encounterCleveland [facility]06-26-2023 Miscellaneous Notes* Telephone Encounter - Serena Carrasco DO - 10/01/2022 5:03 PM EDT Agree. Thank you. Serena Carrasco DO * Telephone Encounter - Lisa Malhotra RN - 10/01/2022 4:[address] Carrasco aware of note. Patient to check BP at home. Stop Lisinopril/Hydrochlorothiazide if diarrhea or if systolic BP<100. Call to patient and aware of above message. Questions answered. Nicki Malhotra RN * Telephone Encounter - Lisa Malhotra RN - 10/01/2022 3:59 PM EDT [place] Care Coordination FOLLOW-UP NOTE Patient identified by name and date of . YES Spoke to patient Summary: (Reason for follow-up) Restarted Verzenio 09/25/22 Concerns: (New Barriers to care) Call for update. Patient has not had any diarrhea. States she remembers having issues going into the 3rd week of medication when she originally started. She is not taking any Imodium but understands how to take and will start if any diarrhea. She denies any needs or concerns at this time. She states that she restarted her Lisinopril/Hydrochlorothiazide since her diarrhea has resolved. Medication questions or concerns? yes see above Patient verbalized when to seek Medical Attention and an understanding of after- hours phone numberand process: Yes Care Coordination Plan: No further follow up needed at this time. Patient will call if any issues or diarrhea Lisa Malhotra RN October 01, 2022 documented in this encounterCleveland Clinic [facility]06-20-2023 Nurse Note* Karyn Kirk RN - 09/25/2022 12:38 PM EDT No hydration. Continue liberal hydration. She can restart Verzenio and Nicki will call her about use of Imodium. She should call us if diarrhea not controlled. Per Dr. Carrasco Pt aware to re-start. documented in this encounterCleveland [facility]06-19-2023 Miscellaneous Notes* Telephone Encounter - Karyn Muñoz - 09/24/2022 9:22 AM EDT Added on to schedule as directed. Karyn Muñoz * Telephone Encounter - Lisa Malhotra RN - 09/24/2022 8:52 AM EDT Spoke with patient, she states she is feeling better. Very little diarrhea yesterday, 2 small episodes yesterday, none so far today. States she has been drinking a lot of water. She was able to get out yesterday and do some yard work. She is aware of Dr. Carrasco note/instructions below. She is able to come in at 1pm for lab/hydration. PSS: please schedule patient for BMP(stat) at 1pm in lab and then [address] Carrasco, please place orders. Nicki Malhotra RN * Telephone Encounter - Serena Carrasco DO - 09/21/2022 6:20 PM EDT Can let her know kidney function is improving nicely. Schedule her Saturday for another stat BMP hydration. Has diarrhea stopped? Serena Carrasco DO documented in this encounterCleveland [facility]06-15-2023 Miscellaneous Notes* Telephone Encounter - Kasie Moraes LPN - 09/20/2022 3:20 PM EDT Pt. Notified of results of urinalysis. RX sent to pharmacy take as directed. Pt. Voiced understanding. Kasie Moraes LPN * Telephone Encounter - Serena Carrasco DO - 09/20/2022 2:56 PM EDT UA suggests bladder infection. Rx for Bactrim 1 tablet twice daily x3 days sent to [address]. Serena Carrasco DO documented in this encounterCleveland Clinic [facility]06-15-2023 History of Present illness Narrative* Chantale Bundy RN - 09/20/2022 12:31 PM EDT IRB#[id number]. LORI 1117: A Randomized, Open-Label, Phase 3 Study of Abemaciclib Combined with Standard Adjuvant Endocrine Therapy versus Standard Adjuvant Endocrine Therapy Alone in Patients with High Risk, Node Positive, Early Stage, Hormone Receptor Positive, Human Epidermal Receptor 2 Negative, Breast Cancer Informed Consent signed on 01/16/2018 prior to any study related procedures not deemed SOC. Randomized on: 01/24/18. ARM: Arm B: Endocrine only. Study ID: [id number] Patient is here for Faslodex and address medication changes - this RN is seeing for Unscheduled Visit - Progression ([id number]). Physical exam, toxicities, labs, and medications reviewed with Dr. Carrasco. Patient has confirmed based on biopsy 08/14/2022 there are is recurrance and two tumors in the left breast. There is on on top of the implant and one by the side and that has grown into the chest wall. There is also positive lymph nodes in the sternum - patient on Verzenio and Faslodex - patient Verzenio is on hold since patient is having diarrhea and needed fluids today. Recurrence determined:08/14/2022 ECOG Score: 0- Fully active, able to carry on all pre-disease performance w/o restriction - Last documented by Serena Carrasco DO. Clinical Trial Draw: Not required at this time QOLs: Not required at this time Mammogram: Completed in May and clear - reviewed with Serena Carrasco. 09/20/2022 Weight 89.4 kg (197 lb) BSA 0 BMI 0 Temp 36.2 C (97.2 F) Pulse Ox 97% Pulse 91 BP 91/57 Resp 16 Current Medications reviewed today Drug Dose Use Start/Stop Albuterol HFA (Ventolin HFA) 90 mcg/acuation inhaler PRN Inhale 2 puffs as instructed every 4 hoursPRN For wheezing/SOB Start:02/13/2021 Stopped: 07/07/2022 Lisinopril-Hydrochlorothiazide (Prinzide, Zestoretic) 20-12.5 mg tablet 1 tablet by mouth daily Forhypertension Start:05/15/2021 Paroxetine (Paxil) 10 mg tablet 1 tablet by mouth daily (Started 08/31/2020) For hot flashes Start:05/15/2021 Stop:07/04/2022 Anastrozole (Arimidex) 1 mg tablet 1 tablet by mouth daily For HR+ Breast Cancer Start:01/18/2018 Stopped:08/16/2022 Meloxicam (Mobic) 15 mg tablet Take 1 tablet by mouth daily as needed For pain Start:05/15/2021 Stopped:08/16/2022 Acetaminophen (Tylenol, Extra Strength) 500 mg tablet Take 1 tablet by mouth every 8 hours PRN For pain Start:03/22/2019 Ascorbic Acid (Vitamin C) 500 mg tablet Take 1 tablet by mouth daily Supplement Alpha Tocopheryl Acetate (Vitamin E) 400 unit capsule Take 1 capsule by mouth daily Supplement Enteric Coated Aspirin (ASA) 81 mg tablet Take 1 tablet by mouth daily For VTE/Stroke prevention Start:10/08/2017 Stopped:08/16/2022 Cyanocobalamin (Vit B12) 1000 MG tablet Take 1 tablet by mouth daily Supplement Vitamin D 50,000 unit capsule Take 1 capsule by mouth once weekly Supplement Start:03/25/2017 Ursodiol 500 mg tablet Take 1.5 tablets by mouth twice daily Start:03/25/2017 Calcium Carbonate 500 mg tablet Take 1 tablet by mouth daily Supplement Start:03/25/2017 Zoledronic Acid - Mannitol - 0.9 MaCl 4mg iv Piggyback (Zometa) One infusion (4 mg- 100 mL) every 6months Bone modifying agent (due to AI therapy) Trazadone (Deseyreyl) 50mg Tablet Take 1 tablet by mouth daily and bedtime Insomnia Start:05/29/2021 Stop: 06/06/2022 Trazadone (Deseyreyl) 25mg Tablet Take 1 tablet by mouth daily and bedtime Insomnia Start:06/07/2022 Cymbalta 30 mg Take 1 tablet by mouth daily Hot Flashes Start:07/05/[address] (PROTONIX) 40 mg tablet Take 40 mg by mouth daily before breakfast Acid Reflux Start:12/12/2021 Ondansetron (Zofran) 8 mg tablet Take 1 tablet every 8 hours as need for nausea Nausea Start:08/24/2022 Abemaciclib (Verzenio) 150 mg tablet Take 1 tablet by mouth twice daily Targeted Treatment Start:08/17/2022 On Hold 09/20/2022 Immodium Take 1 tablet as needed every 4-6 hours Diarrhea Start:08/17/2022 Patient reported compliance with anastrozole. Current CTCAE V5 Toxicities Pain (left foot): Grade 2. Start Date: Approximately Feb 2020. Unrelated to anastrozole, related toarthritis. Drugs to Treat: Mobic 15 mg PRN. Action Required: None. Outcome: Ongoing. Hot flashes. Grade 1. Start Date: approximately 02/25/2018. Related to anastrozole. Drugs to Teat: Paxil. Action Required: None. Outcome: Improving and ongoing. Peripheral Sensory Neuropathy (tips of thumbs). Grade 1. PRIOR TO STUDY.Start Date: approximately July 2017. Drugs to Treat: None. Action Required: None. Outcome: Ongoing/Stable. Insomnia. Grade 1. Start Date: Approximately 08/31/2020. Unrelated to anastrozole side effects (hot flashes). Drugs to Treat: Trazadone. Action Required: None. Outcome: Ongoing and improving. Hyperglycemia: Grade 1. Start Date: Prior to study but noted under CTCAE 08/02/2021. Drugs to Treat: None. Action Required:None Outcome: Ongoing Back pain (stiffness): Grade 1. Start Date: 08/02/2021. Drugs to Treat: Mobic and Tylenol. Action Required:None Outcome: Ongoing Hyponatremia: Grade 1. Start Date: 09/20/2021. Drugs to Treat: None. Action Required:Hydration Outcome: Ongoing Creatinine Increased: Grade 1. Start Date: 09/20/2021. Drugs to Treat: None. Action Required:Hydration Outcome: Ongoing Hypoalbuminemia: Grade 1. Start Date: 09/20/2021. Drugs to Treat: None. Action Required:Hydration Outcome: Ongoing Anemia: Grade 1. Start Date: 09/20/2021. Drugs to Treat: None. Action Required:Hydration Outcome: Ongoing Menopausal Status: Post Contraception: NA LMP: 09/06/2009 Follow Up: 12/20/2022 - Serena Carrasco OV/Labs Patient aware that next visit per protocol is in 3 months. Patient has contact information for Dr. Carrasco's office/Research Team for any questions/concerns in the interm. MATTY Bruner, RN Clinical Research Nurse [phone] documented in this encounterCleveland [facility]06[facility] History of Present illness Narrative* Serena Carrasco, DO - 09/20/2022 10:54 AM EDT Diagnosis: 1) Breast cancer. HPI: The patient is a 62-year-old postmenopausal female who has a past medical history significant for hypertension and primary biliary cirrhosis. She is seen by her mems process engineer approximately once ayear and she has had stable findings. Most recent liver chemistries performed at [facility] on 01/10/2017 showed a total bilirubin of 0.3 mg/dL with a direct bilirubin of 0.09 mg/dL. The AST was 19 and the ALT was 23. Alkaline phosphatase was 95. CBC at that time was normal with a white count of 8900. No differential. Hemoglobin 12.2 g/dL platelet count 237,000. Coagulation studiesshowed a normal INR 1.0 with a PT of 13.0 seconds. Evidently she was on a trip to [place] about 2 1/2 years ago when she developed pleuritic right-sided chest pain. She presented to local ER there. She's not sure what radiographic studies weredone but she was told that there was a concern she had lung cancer and she was to follow-up when she got back home. Over the last 2 years she's had a number of radiographic studies including CT of the chest as well as PET scan last year that showed no evidence of malignancy. She's had pain under left breast that was attributed to rib fracture with healing. Over the last year there's been a lump in lower left breast thought associated to healing underlying rib fracture. Core needle biopsy performed on 03/29/2017: Left breast, core biopsy: Invasive ductal carcinoma, nuclear grade 2 (1.3 cm in greatest length). ER (clone [id number]) >95%, strong SC (clone [id number]/[id number]) >95%, strong Her-2Neu (clone [id number]) 0 There was a spiculated mass at the lower outer left breast measuring 2.7 x 1.8 x 3.5 cm with central clip artifact consistent with the biopsy-proven malignancy. It was in the posterior depth but there was no evidence of chest wall involvement. There were no other abnormal areas of enhancement within the left breast. There were 2 abnormally thickened enhancing lymph nodes high in the left axilla that were suspicious for axillary node metastases. There are also several rounded nodes in the left high subpectoral region with the largest measuring 7 mm in short axis. These were noted to be suspicious. A possible 4 mm in short axis left internal mammary node was also appreciated. Full staging workup including CT scans of the chest, abdomen and pelvis as well as brain MRI and whole-body bone scan shows some mild activity in the distal femur on the right. Plain films showed degenerative changes without any osteoblastic or osteolytic activity. The CT scans disclosed 2 hypodense lesions in the liver that on MRI had signal characteristics consistent with hemangioma. Brain MRI was normal. Previous therapy: 1) Neoadjuvant AC followed by Taxol. 2) Underwent a left nipple sparing mastectomy with left axillary lymph node dissection and left armreverse axillary mapping on 10/08/2017. This was done in conjunction with a implant and acellular dermal matrix with a lymphatico-venous bypass to the left axilla. 3) Adjuvant radiation to left chest wall/axilla and supraclavicular area completed 01/02/2018. Pathology from 10/08/2017 surgery: 1. Left axillary contents, excision (A) - Four of five lymph nodes, positive for metastatic carcinoma (4/5) with treatment effect. - Extranodal extension is present. - Biopsy clips and changes consistent with prior biopsy sites. 2. Left breast, mastectomy (B) - Fibrous tumor bed with residual invasive ductal carcinoma, histologic grade 1. - Ductal carcinoma in situ, intermediate nuclear grade, solid type. - Biopsy clip and changes consistent with prior biopsy site. - Please see synoptic report. SYNOPTIC REPORT OF [place] PATHOLOGIC FINDINGS LEFT BREAST: BREAST INVASIVE CARCINOMA WORKSHEET Part: A and B Procedure: Total mastectomy (including nipple-sparing and skin-sparing mastectomy) Specimen Laterality: Left Tumor size: Size of largest invasive carcinoma: Greatest dimension of largest focus of invasion >1 mm: 9 mm Tumor Focality: Single focus of invasive carcinoma Histologic Type of Invasive Carcinoma: Invasive carcinoma of no special type (ductal, not otherwise specified) Histologic Grade: Glandular (Acinar) / Tubular Differentiation: Score 2 Nuclear Pleomorphism: Score 2 Mitotic Rate: Score 1 (<=3 mitosis per mm2) Overall Grade: Grade I Ductal Carcinoma In Situ: DCIS is present in specimen DCIS Nuclear Grade: Grade II (intermediate) Tumor Extension: Skin: Not applicable Nipple: Not applicable Skeletal muscle: Not applicable Invasive Carcinoma Margins: Margins uninvolved by invasive carcinoma Distance from closest margin: 2 mm Closest margin: Inferior radial DCIS Margins: Margins uninvolved by DCIS Distance from closest margin: 5 mm Closest margin: Inferior radial Lymph Nodes: Involved by tumor cells Number of lymph nodes with macrometastases (>2 mm): 4 Number of lymph nodes with micrometastases (>0.2 mm to 2 mm and/or >200 cells): 0 Number of lymph nodes with isolated tumor cells (<= 0.2 mm and <= 200 cells): 0 Size of largest metastatic deposit: 8 mm Extranodal extension present: 1.5 mm Number of lymph nodes examined: 5 Treatment Effect: Treatment effect in the breast Treatment effect in the lymph nodes Probable or definite response to presurgical therapy in the invasive carcinoma Probable or definite response to presurgical therapy in metastatic carcinoma Lymph-Vascular Invasion: Present Pathologic Stage Classification (pTNM,AJCC 8th ed) TNM Descriptor(s): y (post- treatment) Primary Tumor (Invasive Carcinoma) (pT): pT1b Regional Lymph Nodes (pN): Modifier: Not applicable Category (pN): pN2a Distant metastasis: Distant Metastasis (pM) Not applicable/Not confirmed pathologically in this case Estrogen & progesterone receptors: Previously performed (HER2) ERBB2 Status: 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 3) [facility] Stopped 08/2022. Metastatic disease. 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 Was seen by Dr. Fanning for the nodule appreciated on previous exam. Underwent punch biopsy on 07/19/2022. Pathology: Skin, left breast, punch biopsy: -Consistent with metastatic breast adenocarcinoma, see comment. Histologic sections demonstrate a largely unremarkable epidermis overlying a dermis filled with infiltrative cords and nests of pleomorphic epithelioid cells with ductal formation. To better characterize the specimen, ancillary immunohistochemical staining was performed on block [facility] and compared to appropriate reactive controls. The epithelioid cells are positive for CK7 and GATA3. These histologic findings are consistent with metastatic breast adenocarcinoma from the patient's known malignancy. Presents for ongoing oncologic management. Interim history: Underwent bronchoscopy on 08/14/2022 where lymph node sampling was performed of a 4L lymph node. Pathology: EBUS TRANSBRONCHIAL FINE NEEDLE ASPIRATE, LYMPH NODE - 4L Positive for malignant cells. Metastatic adenocarcinoma consistent with breast primary (see comment). Current therapy: 1) Faslodex. Began 08/23/2022. 2) Verzenio. Began began 08/24/2022. Presents for ongoing oncologic management. Interim history: She endorses today she has been having diarrhea on a daily basis for the last several weeks. Mostly2-3 times a day has had days up to 6 or 7 times. Always watery. Appetite decreased. Some nausea. Novomiting. Has not taken more than 2 Imodium tablets in a given day. She is fatigued. No cough, wheezing, shortness of breath with moderate exertion or chest pain. PMH, medications and allergies personally reviewed by me today. Any changes documented in appropriate section. ROS: Constitutional: Denies episodes of fever and night sweats. Neuro: Denies YOUSIF, vertigo, dizziness and imbalance. HEENT: No recent change in voice, vision or hearing. Resp: See HPI. CVS: See HPI.. GI: Denies dysgeusia. Denies symptoms of stomatitis. Denies dysphagia and odynophagia. Denies reflux. : Denies dysuria or gross hematuria. No symptoms of bladder outlet obstruction. Endo: Denies polyuria and polydipsia. Denies heat and cold intolerance. Musculoskeletal: Improvement in previous musculoskeletal side effects from anastrozole. Derm: Denies rash. Denies jaundice and diffuse pruritis. Heme: Denies unusual bleeding and unexplained bruising. Psych: Normal mood. PHYSICAL EXAM: Vitals: Blood pressure 91/57, pulse 91, temperature 36.2 C (97.2 F), weight 89.4 kg (197 lb), SpO2 97 %. Fatigued-appearing and in no acute distress. EYES: Sclerae are anicteric bilaterally. Oral mucosa somewhat dry. LYMPHATIC: There is no palpable cervical or supraclavicular adenopathy. No axillary adenopathy. RESPIRATORY: Inspiratory breath sounds are of normal intensity in all escobedo. No rales, wheezes or rhonchi. CARDIOVASCULAR: Rhythm is regular. BREAST: RN chaperoned. Left sided implant remains contracted. Stable less than BB sized palpable nodules along the superior margin of the breast implant. Subcutaneous mobile nodule inferior side leftbreast implant umbilicated from recent biopsy. The scarred tissue in lateral IMF is not as prominent. ABDOMEN: The abdomen is nondistended. No organomegaly. No tenderness. Extremities: No swelling or edema. SKIN: No jaundice or rash. LABS: Component Latest Ref Rng & Units 09/06/2022 09/20/2022 WBC 3.70 - 11.00 k/uL 5.71 6.70 RBC 3.90 - 5.20 m/uL 3.79 (L) 3.31 (L) Hemoglobin 11.5 - 15.5 g/dL 11.7 10.2 (L) Hematocrit 36.0 - 46.0 % 34.9 (L) 30.8 (L) MCV 80.0 - 100.0 fL 92.1 93.1 MCH 26.0 - 34.0 pg 30.9 30.8 MCHC 30.5 - 36.0 g/dL 33.5 33.1 RDW-CV 11.5 - 15.0 % 12.1 12.7 Platelet Count 150 - 400 k/uL 184 170 MPV 9.0 - 12.7 fL 10.0 9.3 Neut% % 58.2 56.8 Abs Neut (ANC) 1.45 - 7.50 k/uL 3.32 3.80 Lymph% % 33.1 34.0 Abs Lymph 1.00 - 4.00 k/uL 1.89 2.28 Chase% % 4.7 5.8 Abs Chase <0.87 k/uL 0.27 0.39 Eosin% % 3.3 2.2 Abs Eosin <0.46 k/uL 0.19 0.15 Baso% % 0.5 0.9 Abs Baso <0.11 k/uL 0.03 0.06 Immature Gran % % 0.2 0.3 IMMATURE GRANS (ABS) <0.10 k/uL <0.03 <0.03 NRBC /100 WBC 0.0 0.0 Absolute nRBC <0.01 k/uL <0.01 <0.01 DTYPE Auto Auto Protein, Total 6.3 - 8.0 g/dL 6.8 Albumin 3.9 - 4.9 g/dL 3.9 Calcium 8.5 - 10.2 mg/dL 9.4 Bilirubin, Total 0.2 - 1.3 mg/dL 0.3 Alkaline Phosphatase 34 - 123 U/L 56 AST 13 - 35 U/L 14 ALT 7 - 38 U/L 12 Glucose 74 - 99 mg/dL 126 (H) BUN 7 - 21 mg/dL 26 (H) Creatinine 0.58 - 0.96 mg/dL 1.41 (H) Sodium 136 - 144 mmol/L 138 Potassium 3.7 - 5.1 mmol/L 4.0 Chloride 97 - 105 mmol/L 104 CO2 22 - 30 mmol/L 27 Anion Gap 9 - 18 mmol/L 7 (L) eGFR >=60 mL/min/1.73m 42 (L) IMAGING: PET 07/31/2022: 1. NECK: No FDG avid neoplastic process. No mass, adenopathy, or fluid collection. 2. CHEST: Hypermetabolic small ill-defined soft tissue density in the left inferolateral aspect of the left breast prosthesis, concerning for malignancy/recurrence of malignancy in this region. Hypermetabolic mediastinal and left hilar lymph nodes, concerning for metastatic disease. 3. ABDOMEN/PELVIS: No FDG avid neoplastic process. No mass, adenopathy, or fluid collection. 4. EXTREMITIES/SKELETON: No FDG avid osseous process. No destructive/traumatic bony abnormality. 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 -KPS is 100%. -Overall tolerated anastrozole well with the exception of an increase in frequency of hot flashes and continued arthralgias particularly of the base of the thumbs bilaterally. -PET scan indicated disease left chest wall and mediastinal lymph nodes. MRI brain negative. -Biopsy-proven disease recurrence left chest wall inferior and posterior to implant. -ER positive (99% strong staining intensity), SC positive (2% with strong staining intensity), HER22+; nonamplified by FISH testing. 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 -Tolerating Faslodex symptomatically very well but Verzenio is causing diarrhea which is now led tohypovolemia and prerenal azotemia. Plan: -Continue Faslodex monthly. -Hold Verzenio. -No further Zometa q 3 months since no bone metastases until other acute issues resolved. -Hydration today. -Hold lisinopril/HCTZ. -Recheck BMP with hydration plan for tomorrow. -Will restart Verzenio once recovers from LAXMI and patient will be educated further on the use of antimotility agents. If diarrhea occurs again despite that then dose reduction indicated. -PET and MRI breast in about 2-3 months. (I42.7, T45.1X5A) Chemotherapy-induced cardiomyopathy (HCC) Assessment: -Patient had otherwise unexplained persistent tachycardia. Echo showed normal EF but I reviewed with cardiology--there was a 10 percent change in the strain pattern suggestive of early cardiomyopathy. -Changed back to lisinopril/HCTZ which she had been on prior to diagnosis breast cancer. -Blood pressure continues under better control. Plan: -Hold lisinopril/HCTZ. -Follow up with PCP for general health maintenance management. Portions of this documentation were copied and pasted from previous office visit notes in order to provide a cohesive continuity of the history. The note has been reviewed and edited and updated as necessary. I spent a total of 30 minutes on the date of the service which included preparing to see the patient, [id number] patient care, completing clinical documentation, obtaining and/or reviewing separately obtained history, performing a medically appropriate examination, counseling and educating the pat ient/family/caregiver, ordering medications, tests, or procedures, communicating with other HCPs (not separately reported), and communicating results to the patient/family/caregiver. Serena Carrasco DO documented in this encounterC[facility]06-05-2023 Miscellaneous Notes* Telephone Encounter - Svetlana Kong LPN - 09/10/2022 8:24 AM EDT Patient notified and verbalized understanding. Svetlana Kong LPN * Telephone Encounter - Serena aCrrasco DO - 09/09/2022 10:27 AM EDT Let her know that her serum creatinine and BUN are slightly elevated suggesting mild dehydration. Encourage liberal hydration. We will be rechecking her lab work as scheduled. Serena Carrasco DO documented in this encounterCleveland Clinic [facility]06-01-2023 Nurse Note* Kasie Moraes LPN - 09/06/2022 9:08 AM EDT Faslodex injection administered, bilateral tolerated well, no immediate adverse reactions noted. Kasie Moraes LPN documented in this encounterCleveland Clinic [facility]05-13-2023 Miscellaneous Notes* Telephone Encounter - Eliz Bingham MD - 08/18/2022 1:16 PM EDT spoke with patient- reviewed situation reviewed MRI questions answered will follow in the background. Eliz Bingham MD 1:16 PM documented in this encounterCleveland Clinic [facility]05-12-2023 Miscellaneous Notes* Telephone Encounter - Rea Banda - 08/17/2022 9:15 AM EDT PATIENT SCHEDULED DIRECTED BELOW. WILL INFORM PATIENT WHEN SHE IS HERE FOR HER NEXT INJECTION. * Telephone Encounter - Svetlana Kong LPN - 08/17/2022 8:19 AM EDT Patient will be due for Faslodex 09/20/2022. Please split the new patient slot at 10:10 to accommodate her OV same day as injection. Please schedule Faslodex at 11:45 that day and we will work her inafter her OV. Sevtlana Kong LPN * Telephone Encounter - Karyn Muñoz - 08/16/2022 4:29 PM EDT Check Out - Begin Faslodex today. Rx for Verzenio. OV in about a month when here for Faslodex. Change to q 3 month BMP/Zometa beginning in October. Labs TBD once receives Verzenio. Scheduled first [address] Carrasco - you have no office openings other than new patient appointments when the patient is duefor her OV. Please advise. Karyn Muñoz documented in this encounterCleveland Clinic [facility]05-12-2023 Miscellaneous Notes* Telephone Encounter - Serena Carrasco DO - 08/17/2022 8:40 AM EDT The following approved medication requests have been transmitted electronically. Requested Prescriptions Signed Prescriptions Disp Refills abemaciclib (VERZENIO) 150 mg tablet 60 tablet 5 Sig: Take 1 tablet (150 mg) by mouth twice daily. Authorizing Provider: SERENA CARRASCO DO * Telephone Encounter - Tye Daniel [facility] - 08/17/2022 6:07 AM EDT Prior authorization was NOT required for Verzenio. Plan Name: [facility] [place] reference number: N/A Approval Dates: N/A However, s/he is required to use [facility] to fill this medication. Will queue prescription(s) to go to designated specialty pharmacy. For reference, their pharmacy phone number is [phone]. No further action by [facility] Specialty. Tye Daniel, PharmD Clinical Pharmacist, Oncology [facility] P: , F: Pool: P [facility] Pool #: [id number] documented in this encounterCleveland Clinic [facility]05-11-2023 History of Present illness Narrative* Daily Singleton - 08/16/2022 5:39 PM EDT [facility] received prescription(s) for Verzenio from Dr. Carrasco's office. Benefits investigation was conducted, indicating that a prior authorization is not required at this time per patient's plan with [facility]. Prescriptions will now be processed through [facility] for determination of next steps. Daily Singleton documented in this encounterCleveland Clinic [facility]05-11-2023 Nurse Note* Kasie Moraes LPN - 08/16/2022 4:29 PM EDT Injection not given . Pt. Will be out of town the week thru therefore decided not to administer since she would not be available until 09/04 and loading regiman would be interrupted. Per Dr. Corwin Moraes LPN documented in this encounterCleveland Clinic [facility]05-09-2023 NoteHNO ID: [id number] Author: Nini Mansfield RN Service: ? Author Type: Registered Nurse Type: Nursing Progress Note Filed: 08/14/2022 11:08 AM Note Text: 1105 pt given written and verbal dc instructions. Pt verbalized understanding.[facility] [id number] NoteHNO ID: [id number] Author: Kam Dangelo MD Service: ? Author Type: Physician Type: Progress Notes Filed: 08/14/2022 10:12 AM Note Text: Bronchoscopy performed without incident. Please refer to bronchoscopy note. Notable findings and/or preliminary results: Malignant cells found in the 4L node, sent for cytology and in formalin for surg path. Discussed with patient and/or family post-procedure. Instructed to follow up with Dr. Carrasco. Please call with any questions. Kam Dangelo MD 10:11 AM August 14, 2022[facility] [id number] NoteHNO ID: [id number] Author: Gumaro Bey APRN.MUSEUM ARCHIVIST Service: Anesthesiology Author Type: Nurse Cook Box Filler Type: Anesthesia Procedure Notes Filed: 08/14/2022 9:21 AM Note Text: ANESTHESIOLOGY PROCEDURE NOTE Airway General Information Procedure Start Time/Medication Administration: 08/14/2022 9:09 AM Patient location during procedure: OR Timeout Performed Pre-procedure: timeout performed Consent Obtained: Yes Patient identity confirmed: arm band, care cps team lead and patient Staffing MUSEUM ARCHIVIST: Gumaro Bey APRN.MUSEUM ARCHIVIST Performed by: PAMELA Indications and Patient Condition Indications for airway management: anesthesia Preoxygenated: yes anesthesia circuit Patient position: sniffing Method: asleep Difficult Mask: No Final Airway Details Final airway type: supraglottic airway Number of attempts at approach: 1 Final Supraglottic Airway: IGEL Size 5 Seal Adequate: yes Airway not difficult Comments Teeth and lips in preanesthetic condition. SIGNATURE: Gumaro Bey APRN.MUSEUM ARCHIVIST PATIENT NAME: Pat Sorto DATE: August 14, 2022 TIME: 9:20 AM CSN: [id number] [facility] Patient Name: Pat Sorto Procedure Date: 08/14/2022 8:44 AM Date of : 1960 Admit Type: Outpatient Age: 62 Room: Endo 2 Gender: Female Attending MD: Kam Dangelo MD Procedure: Bronchoscopy Indications: Adenopathy Providers: Kam Dangelo MD (Doctor), Lucia Parikh RN (Assisting Nurse) Referring MD: Requesting Physician: Serena Carrasco Medicines: See the Anesthesia note for documentation of the administered medications Complications: No immediate complications Procedure: Pre-Anesthesia Assessment: - A History and Physical has been performed. Patient meds and allergies have been reviewed. The risks and benefits of the procedure and the sedation options and risks were discussed with the patient. All questions were answered and informed consent was obtained. Patient identification and proposed procedure were verified prior to the procedure by the physician, the nurse and the anesthesiologist in the procedure room. Mental Status Examination: normal. Airway Examination: normal oropharyngeal airway. CV Examination: regular rate and rhythm. ASA Grade Assessment: III - A patient with severe systemic disease. After reviewing the risks and benefits, the patient was deemed in satisfactory condition to undergo the procedure. The anesthesia plan was to use general anesthesia. Immediately prior to administration of medications, the patient was re-assessed for adequacy to receive sedatives. The heart rate, respiratory rate, oxygen saturations, blood pressure, adequacy of pulmonary ventilation, and response to care were monitored throughout the procedure. The physical status of the patient was re-assessed after the procedure. After obtaining informed consent, the Bronchoscope was introduced through the mouth, via laryngeal mask airway and advanced to the tracheobronchial tree. the Bronchoscope was introduced through the mouth, via laryngeal mask airway and advanced to the tracheobronchial tree. The procedure was accomplished without difficulty. The patient tolerated the procedure well. Findings: The laryngeal mask airway is in good position. The vocal cords appear normal. The subglottic space is normal. The trachea is of normal caliber. The alicia is sharp. The tracheobronchial tree was examined to at least the first subsegmental level. Bronchial mucosa and anatomy are normal; there are no endobronchial lesions, and no secretions. Once the airway inspection was completed, the standard bronchoscope was withdrawn and the convex probe endobronchial ultrasound (EBUS) bronchoscope was inserted through the same route. Lymph Nodes: The following lymph nodes were evaluated and/or sampled. Lymph node sizing was performed via endobronchial ultrasound. Sampling by transbronchial needle aspiration was also performed using an Olympus ViziShot 22 gauge needle and sent for routine cytology. - The 4L (lower paratracheal) node was 9 mm by EBUS, [address] and hypermetabolic via PET scan. Six samples with the needle were obtained. Lymph Nodes: Rapid On-Site Evaluation (DAO): Preliminary cytology was suggestive of malignancy (final results are pending) in the left lower paratracheal region (level 4L). Impression: - Adenopathy - Lymph node sizing and sampling was performed. - Rapid On-Site Evaluation (DAO): Preliminary cytology was suggestive of malignancy in node level 4L (final results are pending). Recommendation: - The patient will be observed post-procedure, until all discharge criteria are met. Attending Participation: I personally performed the entire procedure. Dr. Kam Dangelo MD 08/14/2022 10:17:48 AM This report has been signed electronically by Kam Dangelo MD Number of Addenda: 0 Note Initiated On: 08/14/2022 8:44 AM Procedure Start: 9:12:46 AM Procedure End: 9:30:06 [facility]05-09-2023 History of Present illness Narrative* Kam Dangelo MD - 08/14/2022 10:11 AM EDT Bronchoscopy performed without incident. Please refer to bronchoscopy note. Notable findings and/or preliminary results: Malignant cells found in the 4L node, sent for cytology and in formalin for surg path. Discussed with patient and/or family post-procedure. Instructed to follow up with Dr. Carrasco. Please call with any questions. Kam Dangleo MD 10:11 AM August 14, 2022 documented in [facility] encounterC[facility] Miscellaneous Notes* Telephone Encounter - Cori Cox RN - 08/13/2022 2:39 PM EDT Call to patient to discuss upcoming bronchoscopy as scheduled at [facility] on 08/14/[address] Dangelo. Patient verified that they received instructions via PAT visit. Arrival time provided by [facility] per patient. Instructed patient they must have a responsible person to bring them home as they will receive general anesthesia. Provided a review of [facility] Bronchoscopy procedure NPO instructions: - No solid food after midnight. - You may have 12 ounces of clear liquids (water, clear juices such as apple juice or gatorade, carbonated beverages, clear tea, black coffee, jello) until 2 hours before scheduled arrival at facility. Current medications reviewed with patient. Anticoagulants: None Cori DIETRICH, RN, CCRN-K Interventional Pulmonary Outpatient Clinical Coordinator [facility] [place] documented in this encounterC[facility]05-[facility] History and physical note * Kam Dangelo MD - 08/13/2022 10:51 AM EDT Images from the original note were not included. Interventional Pulmonary Consultation Date of Service: August 13, 2022 Patient: Pat Sorto Medical Record: [id number] Primary Care Physician: Jacinta Rivas MD Referring Physician: Serena Carrasco DO History of Present Illness Pat Sorto is a 62 year old female who has a past medical history of left Breast CA, HTN, and Primary biliary cirrhosis who presents for PET avid lung nodules, referred by Dr. Carrasco. My findingsand recommendations will be communicated with the referring physician by way of shared electronic medical record. Patient has a history of breast cancer, with recent skin recurrence, which led to PET scan. PET showed multiple nodes in chest with PET avidity. Patient feeling well otherwise. No cough, dyspnea, chest pain. For breast cancer, treatment included neoadj AC/Taxol, followed by mastectomy with positive nodes, followed by XRT, followed by anastrozole (which was stopped once the skin met was found). Review of Systems GENERAL: No weight loss, malaise or fevers., SEE HPI NECK: Negative for lumps, goiter, pain and significant neck swelling RESPIRATORY: Negative for cough, wheezing or shortness of breath. CARDIOVASCULAR: Negative for chest pain, leg swelling or palpitations. GI: Negative for abdominal discomfort, blood in stools or black stools or change in bowel habits MUSCULOSKELETAL: Negative for joint pain or swelling, back pain or muscle pain. HEMATOLOGY/LYMPHOLOGY Negative for prolonged bleeding, bruising easily or swollen nodes. ENDOCRINE: Negative for cold or heat intolerance, polyuria, polydipsia and goiter. NEURO: No history of headaches, syncope, paralysis, seizures or tremors All other reviewed and negative other than HPI. 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 Husam Hart in [place] Past Surgical History PAST SURGICAL HISTORY Procedure Laterality Date ARTHRP ACETBLR/PROX FEM PROSTC AGRFT/ALGRFT Right 03/20/2019 Hip replacement, total ARTHRP KNE CONDYLE&PLATU MEDIAL&LAT COMPARTMENTS Left 02/2016 BIOPSY BREAST OPEN INCISIONAL Left 2007 [facility] benign pathology per patient BREAST RECONSTRUCTION Left 2019 fat graft/implant exchange DELIVERY ONLY 1996,1993 , low transverse MASTECTOMY HX Left 2018 AND with immediate reconstruction Family History FAMILY HISTORY Problem Relation Age of Onset Diabetes Mother Heart disease Mother Diabetes Father Hypertension Sister Hypertension Brother twin Hearing Loss Maternal Grandmother Heart disease Maternal Grandmother other (Lung Cancer) Maternal Grandfather smoker Diabetes Paternal Grandmother other (Lung Cancer) Paternal Grandfather smoker No Known Problems Son No Known Problems Son Social Historyy Social History Tobacco Use Smoking status: Never Smokeless tobacco: Never Vaping Use Vaping Use: Never used Substance Use Topics Alcohol use: Yes Comment: occasional Drug use: No Current Medications Current Outpatient Medications Medication Instructions ascorbic acid (vitamin C) (VITAMIN C) 500 mg, ORAL, DAILY CALCIUM CARBONATE (CALCIUM 500 ORAL) 1 tablet, ORAL, DAILY cyanocobalamin (VITAMIN B-12) 1,000 mcg, ORAL, DAILY DULoxetine (CYMBALTA) 30 mg, ORAL, DAILY lisinopril-hydroCHLOROthiazide (PRINZIDE,ZESTORETIC) 20-12.5 mg per tablet TAKE [address] (PROTONIX) 40 mg, ORAL, DAILY BEFORE BREAKFAST traZODone (DESYREL) 50 mg, ORAL, AT BEDTIME Ursodiol 500 mg tablet 1.5 tablets, ORAL, 2 TIMES DAILY VITAMIN D 50,000 unit capsule 1 capsule, 1 TIME WEEKLY Vitamin E (dl, acetate) (VITAMIN E) 400 Units, ORAL, DAILY Imaging See below. Physical Exam VS BP 144/87 Pulse 70 Ht 5' 6 (1.68m) Wt 203 lb (92.1kg) SpO2 98% BMI 32.78 kg/(m^2). GENERAL APPEARANCE: Patient in no acute distress. SKIN: No rashes or lesions. EYES: PERRLA, EOMI,, conjunctivae clear. OROPHARYNX: Lips, mucosa, and tongue normal. Teeth and gums normal. Oropharynx normal. NECK: Supple, no lymphadenopathy, no JVD. BACK: No CVA tenderness, no spinal tenderness LUNGS: Normal breath sounds, clear to auscultation, no wheezes, or crackles. HEART: Normal PMI, Regular rate/rhythm, normal heart sounds, and no murmurs. ABDOMEN: Soft, non tender, no palpable masses, normal bowel sounds, no abdominal bruits, No hepatosplenomegaly. EXTREMITIES: No edema or tenderness NEURO: Awake, alert and oriented x3, no involuntary motions. Assessment & Plan Adenopathy. I personally reviewed the CT-PET scan. There are several PET avid nodes, the brightest of which is in the 4L region. This does not appear symmetric, so metastasis is high in the ddx. She will need an EBUS-TBNA to sample tissue to determine if metastatic. I spoke with her referring physician, and biopsy is important as this would be a 2nd site of metastasis and would alter therapy. Patient is agreeable to procedure. Breast cancer, metastatic HTN. Stable, managed by PCP Primary biliary cirrhosis. Stable and asymptomatic, managed with ursodiol. Kam Dangelo MD Date: August 13, 2022 Time: 10:51 AM documented in this encounterC[facility]05-04-2023 Instructions* Patient Instructions* Jonathan Ku PA-C - 08/09/2022 2:22 PM EDT PATIENT PREOPERATIVE INSTRUCTIONS Kam Dangelo MD has scheduled you for your procedure at this surgery center: [facility]: [phone] --[id number] [address]. Please check in on the1st floor at registration desk 6. Please read below carefully for your personalized instructions. Dietary Restrictions: - No solid food after midnight. - You may have 12 ounces of clear liquids (water, clear juices such as apple juice or gatorade, carbonated beverages, clear tea, black coffee, jello) until 2 hours before scheduled arrival at facility. - Do not drink any alcohol after midnight the night before your surgery. Medications: Unless instructed differently below, stay on all of your medications until your surgery. Approved medications to take the morning of surgery with a sip of water: pantoprazole DR (PROTONIX) DO NOT TAKE YOUR lisinopril-hydroCHLOROthiazide THE NIGHT BEFORE OR MORNING OF SURGERY. If you start any new medications after today's visit, please contact the surgeon's office. Blood Thinning Medications: - Stop NSAIDS (Ibuprofen, Advil, Aleve, Motrin, Celebrex, Mobic, etc.) 7 days before surgery, as directed by your surgeon. - Stop Aspirin 7 days before surgery, as directed by your surgeon. - Stop Vitamin E, ALL multi-vitamins, herbals and dietary supplements 7 days before surgery. - You may take Tylenol (Acetaminophen) or any of your pain medications that do not contain aspirin or NSAIDS as needed. Important Reminders: - If you use CPAP/BIPAP, bring the machine with you to the surgery center. - If you are prescribed inhalers for breathing, continue using them. - Candy, mints, and tobacco products are NOT permitted the morning of surgery. - Hearing aids, dentures and glasses may be worn the morning of surgery. - NO jewelry, body piercings, makeup, hairpins or contacts are to be worn the day of surgery. If you develop symptoms such as a fever, cold, or flu, or have other changes to your health within TWO DAYS of scheduled surgery or the morning of surgery, please contact the surgery center above. Personal Belongings: -Please have photo ID and insurance cards. -If you do not have a copy of advance directives on file with us, please bring a copy with you on the day of surgery. - Leave ALL valuables and money at home or with family members. For Outpatient Procedures: - YOU MUST HAVE A RESPONSIBLE MOLDED RUBBER GOODS CUTTER TAKE YOU HOME. A TRAFFIC REPRESENTATIVE OR DISTRICT REPRESENTATIVE CANNOT BE MADE A RESPONSIBLE MOLDED RUBBER GOODS CUTTER. - We recommend that a responsible person stays with you overnight to take care of you. - You cannot stay in a hotel alone after outpatient surgery. You will not be permitted to have yoursurgery, if you do not have someone to take care of you. Arrival Time for Surgery: - The Surgery Center or hospital where you are having surgery will call the afternoon before surgery (or Saturday for Saturday surgery) with a scheduled arrival time. - If you have not heard by 4 pm, please contact the surgery center above. Please be aware that emergency situations arise, which may delay or change your surgical time. If this happens, we will notify you as soon as possible and regret any inconvenience. If you already have an Advance Directive, please fax a copy to [phone] or email to for it to be added to your chart. If you do not have an Advance Directive, you can find the appropriate form and more information at [email or web address]. We recommend that youcomplete the Advance Directive form found on the website and bring it with you the day of your surgery. It can be witnessed and scanned into your chart that day. Jonathan Ku PA-C documented in this encounterC[facility]05-04-2023 History and physical note * Jonathan Ku PA-C - 08/09/2022 2:20 PM EDT Images from the original note were not included. HISTORY AND PHYSICAL EXAMINATION SERVICE DATE: 08/08/2022 SERVICE TIME: 2:56 PM PRIMARY CARE PHYSICIAN: Jacinta Rivas MD REASON FOR VISIT: Pat Sorto is a 62 year old female who is scheduled for Procedure(s): BRONCHOSCOPY,RIGID/FLEXIBLE W/ FLUORO,W/ENDOBRONCHIAL ULTRASOUND (EBUS) GUIDED TRANSTRACHEAL/ TRANSBRONCHIAL ASPIRATION/BIOPSY,1 OR 2 MEDIASTINAL AND/OR HILAR LYMPH NODE STATIONS/STRUCTURES (N/A) at the request of Dr. Kam Dangelo for consultation. My final recommendation will be communicated back to the requesting physician by way of shared medical record or letter. 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) Axillary Pain, Left Musculoskeletal Chest Pain Examination of Participant in Clinical Trial Hypertension History of Radiation Therapy Total Knee Replacement Status, Left Primary Localized Osteoarthritis of Right Hip Status Post Right Hip Replacement Lumbar Degenerative Disc Disease Carcinoma of Left Breast Metastatic to Skin (Hcc) Class 1 Obesity Due to Excess Calories With Serious Comorbidity and Body Mass Index (Bmi) of 32.0 to 32.9 in Adult COVID-19 Immunization Status Overdue - COVID-19 VACCINE (4 - Booster for Moderna series) Overdue since 05/17/2021 03/22/2021 Outside Immunization: COVID-19, mRNA, LNP-S, PF, 100 mcg/0.5mL dose or 50 mcg/0.25mL dose 07/13/2020 Outside Immunization: COVID-19, mRNA, LNP-S, PF, 100 mcg/0.5mL dose or 50 mcg/0.25mL dose 06/15/2020 Outside Immunization: COVID-19, mRNA, LNP-S, PF, 100 mcg/0.5mL dose or 50 mcg/0.25mL dose CHIEF COMPLAINT: Pre-anesthesia optimization HPI: Pat Sorto is a 62 year old female presenting for pre-anesthesia consultation. Pt has history of left breast CA in 2018 with definitive treatment, + chemo, + radiation. Under regular survellience found skin changes and punch biopsy performed with PET scan. PET scan concerning for metastatic disease in lymph nodes. Above procedure recommended to manage symptoms. Procedure scheduled on 08/14/2022 at [facility]. REVIEW OF SYSTEMS: General: No weight loss, malaise or fevers. Neurological: Positive for: peripheral neuropathy (chemo induced, thumbs). Negative for: multiple sclerosis and Parkinson's disease. Respiratory: No history of current cough or dyspnea, or pneumonia in the past 6 weeks. No history of respiratory/pulmonary symptoms or problems. Cardiovascular: Positive for: hypertension Negative for: arrhythmia, atrial fibrillation, CAD, chest pain, DVT/PE, hyperlipidemia and murmur/valvular heart disease. GI: Positive for: GERD and liver disease (Primary biliary cirrhosis, follows with hepatology, stable) Negative for: dysphagia, heartburn, irritable bowel syndrome, inflammatory bowel disease and ETOH >2 drinks/day. : No history of dysuria, frequency or incontinence, stones or chronic kidney disease. No difficulty urinating, nocturia > 1 time per night or hematuria. 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 Endocrine: No history of diabetes. Has not taken steroids within the past 30 days. No history of endocrinological symptoms or problems. Hematology: No history of bleeding or clotting disorder. Patient is not taking anti-coagulation or platelet medications. No history of hematological symptoms or problems. Oncology: See HPI. Psych: No history of psychiatric symptoms or problems. Musculoskeletal: S/p right hip and left knee replacements Positive for: back pain (lumbar DDD). Skin: Negative for lesions, rash and itching. PAST MEDICAL HISTORY Diagnosis Date Breast CA (HCC) 09/2017 Breast cyst, left 2007 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) 08/01/2022 HTN (hypertension) Malignant neoplasm of left breast in female, estrogen receptor positive (HCC) 08/01/2022 Primary biliary cirrhosis (HCC) followed by Dr. Husam Hart in [place] PAST SURGICAL HISTORY Procedure Laterality Date ARTHRP ACETBLR/PROX FEM PROSTC AGRFT/ALGRFT Right 03/20/2019 Hip replacement, total ARTHRP KNE CONDYLE&PLATU MEDIAL&LAT COMPARTMENTS Left 02/2016 BIOPSY BREAST OPEN INCISIONAL Left 2007 [facility] benign pathology per patient BREAST RECONSTRUCTION Left 2019 fat graft/implant exchange DELIVERY ONLY 1996,1993 , low transverse MASTECTOMY HX Left 2017 AND with immediate reconstruction FAMILY HISTORY Problem Relation Age of Onset Diabetes Mother Heart disease Mother Diabetes Father Hypertension Sister Hypertension Brother twin Hearing Loss Maternal Grandmother Heart disease Maternal Grandmother other (Lung Cancer) Maternal Grandfather smoker Diabetes Paternal Grandmother other (Lung Cancer) Paternal Grandfather smoker No Known Problems Son No Known Problems Son Social History Tobacco Use Smoking status: Never Smokeless tobacco: Never Vaping Use Vaping Use: Never used Substance Use Topics Alcohol use: Yes Comment: occasional Drug use: No Prior to Admission medications as of 08/09/22 1421 Medication Sig Last Dose Taking traZODone (DESYREL) 50 mg tablet Take 1 tablet by mouth daily at bedtime. Taking Yes DULoxetine (CYMBALTA) 30 mg capsule Take 1 capsule by mouth once daily. Taking Yes lisinopril-hydroCHLOROthiazide (PRINZIDE,ZESTORETIC) 20-12.5 mg per tablet TAKE 1 TABLET DAILY Taking Yes pantoprazole DR (PROTONIX) 40 mg tablet Take 40 mg by mouth daily before breakfast. Taking Yes ascorbic acid, vitamin C, (VITAMIN C) 500 mg tablet Take 500 mg by mouth once daily. Taking Yes alpha tocopheryl acetate (VITAMIN E) 400 unit capsule Take 400 Units by mouth once daily. Taking Yes cyanocobalamin (VITAMIN B-12) 1,000 mcg tab Take 1,000 mcg by mouth once daily. Taking Yes VITAMIN D 50,000 unit capsule 1 capsule one time a week. Taking Yes Ursodiol 500 mg tablet Take 1.5 tablets by mouth twice daily. Taking Yes CALCIUM CARBONATE (CALCIUM 500 ORAL) Take 1 tablet by mouth once daily. Taking Yes ibuprofen (MOTRIN) 200 mg tablet Take 200 mg by mouth every 6 hours as needed. Patient not taking: Reported on 08/09/2022 Not Taking acetaminophen (TYLENOL) 500 mg tablet Take 500 mg by mouth every 8 hours as needed for Pain. Patient not taking: No sig reported Not Taking aspirin, enteric coated (ASPIRIN, ENTERIC COATED) 81 mg EC tablet Take 1 tablet by mouth once daily. Patient not taking: Reported on 08/09/2022 Not Taking No medication comments found. ALLERGIES No Known Allergies Objective PHYSICAL EXAM: General: alert and oriented and healthy appearance. Pertinent negatives noted - not distressed. Skin: normal color, no rash or lesions. HEENT: EOM intact and pupils equal round. Pertinent negatives noted - no carotid bruit. Cardiovascular: regular rate and rhythm, normal S1 and S2, no rub, murmurs, or gallop. Respiratory: normal breath sounds, no wheezes or crackles. No chest wall deformity or tenderness. Abdomen: soft. Pertinent negatives noted - not tender. Extremities: no deformity, no edema or tenderness, no joint swelling or clubbing. Neurological: normal cognition and motor skills. Gait normal. No weakness or sensory deficit. PAIN ASSESSMENT: VITALS: BP 119/69 Pulse 96 Temp (Src) 97.5 (Temporal) Resp 16 Ht 5' 6 (1.68m) Wt 203 lb (92.1kg) SpO2 97% BMI 32.78 kg/(m^2). Diagnostic tests reviewed for today's visit: Lab Value Units Date High Low HB 12.8 g/dL 07/04/2022 15.5 11.5 HCT 38.0 % 07/04/2022 46.0 36.0 WBC 7.27 k/uL 07/04/2022 11.00 3.70 PLT 224 k/uL 07/04/2022 400 150 NA 137 mmol/L 07/04/2022 144 136 K 3.7 mmol/L 07/04/2022 5.1 3.7 GLUC 156 mg/dL 07/04/2022 99 74 BUN 21 mg/dL 07/04/2022 21 7 CREAT 0.95 mg/dL 07/04/2022 0.96 0.58 PTSEC No results within date range. INR No results within date range. APTT No results within date range. ALT 14 U/L 07/04/2022 38 7 AST 18 U/L 07/04/2022 35 13 TBILI 0.2 mg/dL 07/04/2022 1.3 0.2 TSH No results within date range. Lab Value Units Date High Low HCGQT No results within date range. UHCG No results within date range. HCG, BODY* No results within date range. Lab Value Units Date High Low ABORHD No results within date range. ABSCREEN No results within date range. Hemoglobin A1C (%) Date Value 10/07/2018 5.6 05/20/2018 5.7 Hemoglobin A1C (POCT) (%) Date Value 02/19/2022 5.9 No results found for this or any previous visit (from the past 8760 hour(s)). No results found for this or any previous visit (from the past 93415 hour(s)). Assessment Patient has the following medical conditions which may affect karin-operative course: Chemotherapy-induced neuropathy (HCC) Assessment: on DULoxetine (CYMBALTA), reports most numbness in thumbs Hypertension Assessment: BP today in clinic 119/62. Stable on RX. Chemotherapy-induced cardiomyopathy (HCC) Assessment: last echo post-chemo 05/2018 with EF 66%, Grade 1 LVDD, mild concentric left ventricularhypertrophy. Per hematology note 08/01/22: (I42.7, T45.1X5A) Chemotherapy-induced cardiomyopathy (HCC) Assessment: -Patient had otherwise unexplained persistent tachycardia. Echo showed normal EF but I reviewed with cardiology--there was a 10 percent change in the strain pattern suggestive of early cardiomyopathy. -Changed back to lisinopril/HCTZ which she had been on prior to diagnosis breast cancer. -Blood pressure continues under better control. Plan: -Continue lisinopril/HCTZ. -Follow up with PCP for general health maintenance management. Primary biliary cirrhosis (HCC) Assessment: stable, Malignant neoplasm of left female breast (HCC) Assessment: s/p masectomy, radiation and chemo 2018 Lumbar degenerative disc disease Assessment: no previous surgery Class 1 obesity due to excess calories with serious comorbidity and body mass index (BMI) of 32.0 to 32.9 in adult Assessment: Body mass index is 32.77 kg/m . Herbert Activity Status Index: METS: Climb a flight of stairs or walk up a hill (5.50 METs) DASI Score: 5.5 Patient denies any chest pain or undue shortness of breath with the above physical activity. Clinical Frailty Scale: 3. Well, with treated comorbid disease STOP-Bang Score: Snores loudly Has or is being treated for high blood pressure Patient over 50 years old Denies feeling tired, fatigued, or sleepy during the daytime Has not been observed to stop breathing or choking/gasping during sleep BMI less than or equal to 35 kg/m^2 Does not have a large neck Non-male patient STOP-Bang Score: 3 [id number] Score: Age: <65 Sex: female CHF history: No Hypertension history: Yes Stroke/TIA/thromboembolism history: No Vascular disease history: No Diabetes history: No [id number] Score: 2 ASA Class: 2 ANESTHESIA FINDINGS: Intubation History: No history of difficult intubation. No abnormal airway history Significant Anesthesia Considerations: none Airway History: No history of difficult airway No abnormal airway history I - PHYSICAL EVALUATION AIRWAY Patient intubated: No. Tracheostomy tube not present Mallampati: IV. TM distance: >3 FB. Neck ROM: full ROM without neurological symptoms. Mouth opening: adequate. Short neck: no. Thick neck: no Lip Bite Test: I DENTAL Dental findings: missing tooth/teeth. Additional comments: + caps top front, + crown. II - ANESTHESIA PLAN ASA Score: 2 Anesthetic Plan: general Beta Anahy Monitoring Plan Post Procedure Analgesic Plan Prepared for Surgery: optimally prepared for surgery. Per PACC guidelines no other testing is required CONSULTS: Patient does not require consults for optimization at this time Planned Anesthetic: general The Following Tests/Procedures Have Been Initiated: No orders of the defined types were placed in this encounter. Instructions Given to Patient: Instructions located in the after visit summary. Patient given verbal and written preop instructions and voices comprehension and compliance. SIGNATURE: Jonathan Ku PA-C PATIENT NAME: Pat Sorto DATE: August 08, 2022 TIME: 10:03 AM PAGER/CONTACT #: documented in this encounterC[facility] NoteHNO ID: [id number] Author: Kam Dangelo MD Service: ? Author Type: Physician Type: Progress Notes Filed: 08/06/2022 11:03 PM Note Text: Bronchoscopy Request: Please schedule patient for the following: Bronchoscopy Procedures: EBUS Pre-Procedure visit required: Yes Visit type: New Consultation Anticipated Procedure Date: 08/14/22 Physician Performing Bronchoscopy: Dr. Dangelo Needs Labs: No Needs EKG: Yes Needs CT: No Does the pt need cardiac clearance? No Is he/she on anticoagulants/anti-plt therapy? No Diagnosis/Reason for Bronchoscopy: Breast cancer, PET avid adenopathy. Suspicious for recurrence Referred by: Corwin Reviewed by: TAYLA Dangelo MD August 06, 2022 11:23 [facility]05-01-2023 History of Present illness Narrative* Kam Dangelo MD - 08/06/2022 11:22 AM EDT Bronchoscopy Request: Please schedule patient for the following: Bronchoscopy Procedures: EBUS Pre-Procedure visit required: Yes Visit type: New Consultation Anticipated Procedure Date: 06/14/22 Physician Performing Bronchoscopy: Dr. Dangelo Needs Labs: No Needs EKG: Yes Needs CT: No Does the pt need cardiac clearance? No Is he/she on anticoagulants/anti-plt therapy? No Diagnosis/Reason for Bronchoscopy: Breast cancer, PET avid adenopathy. Suspicious for recurrence Referred by: Corwin Reviewed by: TAYLA Dangelo MD August 06, 2022 11:23 AM documented in this encounterC[facility]04-27-[facility] History of Present illness Narrative* RT Jessica(R) - 08/02/2022 2:15 PM EDT Radiology Service Progress Note DATE OF SERVICE: August 02, 2022 TIME: 3:14 PM PATIENT IDENTITY VERIFICATION COMPLETED USING TWO (2) STANDARD IDENTIFIERS: Name and Date of confirmed by patient verbally. FALL SCREENING: Has the patient had 2 falls in the last year or 1 fall with injury or currently using an Ambulatory Assistive Device (Walker, Cane, Wheelchair, Crutches, etc.)? No PATIENT GENDER DATA: Female. status: : No status: NO. PATIENT RELEVANT IMPLANT DATA REVIEWED: Yes ALLERGIES: Reviewed and unchanged CONTRAST ALLERGY: NO. EXAM: MRI - CONTRAST TYPE: GROUP I OR GROUP III RISK FACTORS: History of hypertension requiring medical therapy CREATININE: Creatinine Date Value Ref Range Status 07/04/2022 0.95 0.58 - 0.96 mg/dL Final 02/16/2022 1.00 (H) 0.58 - 0.96 mg/dL Final 01/18/2022 0.93 0.58 - 0.96 mg/dL Final Estimated Glomerular Filtration Rate Date Value Ref Range Status 07/04/2022 67 >=60 mL/min/1.73m Final Comment: Estimated Glomerular Filtration Rate (eGFR) is calculated using the 2020 CKD-EPI creatinine equation. This equation utilizes serum creatinine, sex, and age as parameters. The creatinine assay has traceable calibration to isotope dilution- mass spectrometry. Refer to KDIGO guidelines for clinical interpretation. In patients with unstable renal function, e.g. those with acute kidney injury, the eGFRmay not accurately reflect actual GFR. eGFR- Date Value Ref Range Status 02/15/2021 >60 Final P.O.C.T. RESULTS: N/A August 02, 2022 TREATMENT: N/A PERIPHERAL IV DATA: Ambulatory: A peripheral IV was started in the Right antecubital site with a Angio cath: 22 gauge. RADIOLOGY DEPARTMENT: MR; Exam(s) Completed: Head: Routine Brain SIGNATURE: Luann Clarke RDMS, RVT - Jose ([facility]) PATIENT NAME: Pat Sorto DATE: August 02, 2022 TIME: 3:14 PM documented in this encounterC[facility]04-26-2023 History of Present illness Narrative* Serena Carrasco, - 08/01/2022 2:55 PM EDT Diagnosis: 1) Breast cancer. HPI: The patient is a 61-year-old postmenopausal female who has a past medical history significant for hypertension and primary biliary cirrhosis. She is seen by her mems process engineer approximately once ayear and she has had stable findings. Most recent liver chemistries performed at [facility] on 01/10/2017 showed a total bilirubin of 0.3 mg/dL with a direct bilirubin of 0.09 mg/dL. The AST was 19 and the ALT was 23. Alkaline phosphatase was 95. CBC at that time was normal with a white count of 8900. No differential. Hemoglobin 12.2 g/dL platelet count 237,000. Coagulation studiesshowed a normal INR 1.0 with a PT of 13.0 seconds. Evidently she was on a trip to [place] about 2 1/2 years ago when she developed pleuritic right-sided chest pain. She presented to local ER there. She's not sure what radiographic studies weredone but she was told that there was a concern she had lung cancer and she was to follow-up when she got back home. Over the last 2 years she's had a number of radiographic studies including CT of the chest as well as PET scan last year that showed no evidence of malignancy. She's had pain under left breast that was attributed to rib fracture with healing. Over the last year there's been a lump in lower left breast thought associated to healing underlying rib fracture. Core needle biopsy performed on 03/29/2017: Left breast, core biopsy: Invasive ductal carcinoma, nuclear grade 2 (1.3 cm in greatest length). ER (clone [id number]) >95%, strong SC (clone 16/1E2) >95%, strong Her-2Neu (clone CB11) 0 There was a spiculated mass at the lower outer left breast measuring 2.7 x 1.8 x 3.5 cm with central clip artifact consistent with the biopsy-proven malignancy. It was in the posterior depth but there was no evidence of chest wall involvement. There were no other abnormal areas of enhancement within the left breast. There were 2 abnormally thickened enhancing lymph nodes high in the left axilla that were suspicious for axillary node metastases. There are also several rounded nodes in the left high subpectoral region with the largest measuring 7 mm in short axis. These were noted to be suspicious. A possible 4 mm in short axis left internal mammary node was also appreciated. Full staging workup including CT scans of the chest, abdomen and pelvis as well as brain MRI and whole-body bone scan shows some mild activity in the distal femur on the right. Plain films showed degenerative changes without any osteoblastic or osteolytic activity. The CT scans disclosed 2 hypodense lesions in the liver that on MRI had signal characteristics consistent with hemangioma. Brain MRI was normal. Previous therapy: 1) Neoadjuvant AC followed by Taxol. 2) Underwent a left nipple sparing mastectomy with left axillary lymph node dissection and left armreverse axillary mapping on 10/08/2017. This was done in conjunction with a implant and acellular dermal matrix with a lymphatico-venous bypass to the left axilla. 3) Adjuvant radiation. Completed 01/02/2018. Pathology from 10/08/2017 surgery: 1. Left axillary contents, excision (A) - Four of five lymph nodes, positive for metastatic carcinoma (4/5) with treatment effect. - Extranodal extension is present. - Biopsy clips and changes consistent with prior biopsy sites. 2. Left breast, mastectomy (B) - Fibrous tumor bed with residual invasive ductal carcinoma, histologic grade 1. - Ductal carcinoma in situ, intermediate nuclear grade, solid type. - Biopsy clip and changes consistent with prior biopsy site. - Please see synoptic report. SYNOPTIC REPORT OF [place] PATHOLOGIC FINDINGS LEFT BREAST: BREAST INVASIVE CARCINOMA WORKSHEET Part: A and B Procedure: Total mastectomy (including nipple-sparing and skin-sparing mastectomy) Specimen Laterality: Left Tumor size: Size of largest invasive carcinoma: Greatest dimension of largest focus of invasion >1 mm: 9 mm Tumor Focality: Single focus of invasive carcinoma Histologic Type of Invasive Carcinoma: Invasive carcinoma of no special type (ductal, not otherwise specified) Histologic Grade: Glandular (Acinar) / Tubular Differentiation: Score 2 Nuclear Pleomorphism: Score 2 Mitotic Rate: Score 1 (<=3 mitosis per mm2) Overall Grade: Grade I Ductal Carcinoma In Situ: DCIS is present in specimen DCIS Nuclear Grade: Grade II (intermediate) Tumor Extension: Skin: Not applicable Nipple: Not applicable Skeletal muscle: Not applicable Invasive Carcinoma Margins: Margins uninvolved by invasive carcinoma Distance from closest margin: 2 mm Closest margin: Inferior radial DCIS Margins: Margins uninvolved by DCIS Distance from closest margin: 5 mm Closest margin: Inferior radial Lymph Nodes: Involved by tumor cells Number of lymph nodes with macrometastases (>2 mm): 4 Number of lymph nodes with micrometastases (>0.2 mm to 2 mm and/or >200 cells): 0 Number of lymph nodes with isolated tumor cells (<= 0.2 mm and <= 200 cells): 0 Size of largest metastatic deposit: 8 mm Extranodal extension present: 1.5 mm Number of lymph nodes examined: 5 Treatment Effect: Treatment effect in the breast Treatment effect in the lymph nodes Probable or definite response to presurgical therapy in the invasive carcinoma Probable or definite response to presurgical therapy in metastatic carcinoma Lymph-Vascular Invasion: Present Pathologic Stage Classification (pTNM,AJCC 8th ed) TNM Descriptor(s): y (post- treatment) Primary Tumor (Invasive Carcinoma) (pT): pT1b Regional Lymph Nodes (pN): Modifier: Not applicable Category (pN): pN2a Distant metastasis: Distant Metastasis (pM) Not applicable/Not confirmed pathologically in this case Estrogen & progesterone receptors: Previously performed (HER2) ERBB2 Status: 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 2) Radiation to left chest wall/axilla and supraclavicular area completed 01/02/2018. 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 Current therapy: 1) Anastrozole on [facility] clinical trial. Presents for ongoing oncologic management. Interim history: Rotated to [facility] at the time of last visit for increase in hot flashes. Was seen by Dr. Bingham for the nodule appreciated on previous exam. Underwent punch biopsy on 07/19/2022. Pathology: Skin, left breast, punch biopsy: -Consistent with metastatic breast adenocarcinoma, see comment. Histologic sections demonstrate a largely unremarkable epidermis overlying a dermis filled with infiltrative cords and nests of pleomorphic epithelioid cells with ductal formation. To better characterize the specimen, ancillary immunohistochemical staining was performed on block [facility] and compared to appropriate reactive controls. The epithelioid cells are positive for CK7 and GATA3. These histologic findings are consistent with metastatic breast adenocarcinoma from the patient's known malignancy. She has no complaints today. No cough, wheezing or chest pain. PMH, medications and allergies personally reviewed by me today. Any changes documented in appropriate section. ROS: Constitutional: Denies episodes of fever and night sweats. Neuro: Denies YOUSIF, vertigo, dizziness and imbalance. HEENT: No recent change in voice, vision or hearing. Resp: Denies cough, wheeze and hemoptysis. CVS: See above. GI: Denies dysgeusia. Denies symptoms of stomatitis. Denies dysphagia and odynophagia. Denies reflux. : Denies dysuria or gross hematuria. No symptoms of bladder outlet obstruction. Endo: Denies polyuria and polydipsia. Denies heat and cold intolerance. Musculoskeletal: See above. Derm: Denies rash. Denies jaundice and diffuse pruritis. Heme: Denies unusual bleeding and unexplained bruising. Psych: Normal mood. PHYSICAL EXAM: Vitals: Blood pressure 124/78, pulse 95, temperature 36.8 C (98.3 F), height 165.5 cm (5' 5.16), weight 91.9 kg (202 lb 8 oz), SpO2 98 %. Well-appearing and in no acute distress. EYES: Sclerae are anicteric bilaterally. LYMPHATIC: There is no palpable cervical or supraclavicular adenopathy. No axillary adenopathy. RESPIRATORY: Inspiratory breath sounds are of normal intensity in all escobedo. No rales, wheezes or rhonchi. CARDIOVASCULAR: Rhythm is regular. BREAST: Family chaperoned. Left sided implant remains contracted. Stable less than BB sized palpable nodules along the superior margin of the breast implant. Subcutaneous mobile nodule inferior side left breast implant removed. ABDOMEN: The abdomen is nondistended. No organomegaly. No tenderness. Extremities: No swelling or edema. SKIN: No jaundice or rash. NEUROLOGIC: spa director/finance II-XII are grossly intact. No focal motor weakness. MUSCULOSKELETAL: No muscle wasting. No joint swelling of the hands. IMAGING: PET 07/31/2022: 1. NECK: No FDG avid neoplastic process. No mass, adenopathy, or fluid collection. 2. CHEST: Hypermetabolic small ill-defined soft tissue density in the left inferolateral aspect of the left breast prosthesis, concerning for malignancy/recurrence of malignancy in this region. Hypermetabolic mediastinal and left hilar lymph nodes, concerning for metastatic disease. 3. ABDOMEN/PELVIS: No FDG avid neoplastic process. No mass, adenopathy, or fluid collection. 4. EXTREMITIES/SKELETON: No FDG avid osseous process. No destructive/traumatic bony abnormality. 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 -KPS is 100%. -Overall tolerated anastrozole well with the exception of an increase in frequency of hot flashes and continued arthralgias particularly of the base of the thumbs bilaterally. -Reviewed the results of the biopsy, PET scan and CT scans. -Reviewed PET images with the patient and her family. -Discussed plan for opinion on bronchoscopy for definitive diagnosis of mediastinal lymph nodes. -Discussed plan for Faslodex and CD4/6 inhibitor. Further plan for surgery once mediastinal and left hilar nodes assessed. Plan: -Move up MRI brain if possible. -I will communicate with pulmonary medicine about bronchoscopy. -Order for Faslodex filed to start prior authorization process. (I42.7, T45.1X5A) Chemotherapy-induced cardiomyopathy (HCC) Assessment: -Patient had otherwise unexplained persistent tachycardia. Echo showed normal EF but I reviewed with cardiology--there was a 10 percent change in the strain pattern suggestive of early cardiomyopathy. -Changed back to lisinopril/HCTZ which she had been on prior to diagnosis breast cancer. -Blood pressure continues under better control. Plan: -Continue lisinopril/HCTZ. -Follow up with PCP for general health maintenance management. Portions of this documentation were copied and pasted from previous office visit notes in order to provide a cohesive continuity of the history. The note has been reviewed and edited and updated as necessary. I spent a total of 45 minutes on the date of the service which included preparing to see the patient, [id number] patient care, completing clinical documentation, obtaining and/or reviewing separately obtained history, performing a medically appropriate examination, counseling and educating the pat ient/family/caregiver, ordering medications, tests, or procedures, communicating with other HCPs (not separately reported), independently interpreting results (not separately reported), and communicating results to the patient/family/caregiver. Serena Carrasco DO documented in this encounterC[facility]04-26-2023 Nurse Note* Bianca Addison RN - 08/01/2022 10:07 AM EDT Patient was referred by: lasha Did patient bring outside records to appt today? : No Last mammogram on: 05/31/2022 Results: see epic Patient current bra size: 40B Coping: It is normal to feel some distress when you have cancer. On a scale of 0-10 please indicatethe number that best describes your level of distress on the average over the past week. 04/17 Referred to social work: No Is the patient active on [employer] Yes Electronically Signed By: Bianca Addison RN In Department: BREAST CENTER REVIEW OF PATIENT HISTORY: OB History T2 L2 SAB0 IAB0 Ectopic0 Multiple0 Live Births2 FAMILY HISTORY Problem Relation Age of Onset Diabetes Mother Heart disease Mother Diabetes Father Hearing Loss Maternal Grandmother Heart disease Maternal Grandmother other (Lung Cancer) Paternal Grandfather smoker other (Lung Cancer) Maternal Grandfather smoker No Known Problems Sister Hypertension Brother twin Diabetes Paternal Grandmother No Known Problems Son No Known Problems Son PAST MEDICAL HISTORY Diagnosis Date Breast CA (HCC) 09/2017 Breast cyst, left 2007 HTN (hypertension) Primary biliary cirrhosis (HCC) followed by Dr. Husam Hart in [place] PAST SURGICAL HISTORY Procedure Laterality Date ARTHRP ACETBLR/PROX FEM PROSTC AGRFT/ALGRFT Right 03/20/2019 Hip replacement, total ARTHRP KNE CONDYLE&PLATU MEDIAL&LAT COMPARTMENTS Left 02/2016 BIOPSY BREAST OPEN INCISIONAL Left 2007 [facility] benign pathology per patient BREAST RECONSTRUCTION Left 2019 fat graft/implant exchange DELIVERY ONLY 1996,1993 , low transverse MASTECTOMY HX Left 2017 AND with immediate reconstruction Social History Tobacco Use Smoking status: Never Smokeless tobacco: Never Vaping Use Vaping Use: Never used Substance Use Topics Alcohol use: Yes Comment: occasional Drug use: No documented in this encounterC[facility]04-26-2023 History of Present illness Narrative* Eliz Bingham MD - 08/01/2022 10:00 AM EDT Images from the original note were not included. regroup to discuss punch biopsy results from 07/19/22: Skin, left breast, punch biopsy: -Consistent with metastatic breast adenocarcinoma, see comment. ER 99 SC 2 Her 2 (FISH) non amplified Dr. Carrasco is aware - and has ordered and scheduled a PET scan PET completed 07/30/22 Mediastinal and hilar LNs concerning for mets; no distant mets Hypermetabolic small ill-defined soft tissue density in the left inferolateral aspect of the left breast prosthesis, concerning for malignancy/recurrence of malignancy in this region. CTs- completed 07/31/22 - clear for metastatic disease She is meeting with Dr. Carrasco later today - and has a consult scheduled with Dr. Carter 08/06/22 recall breast history: Presented in 2018 with ER/SC positive, HER2 negative left LABC (worked up at [place]) [id number] Stage IIIC Neoadjuvant course (Corwin): ddACx4, Taxol x12 10/08/2017 s/p Left MRM with LVB and implant (Jennifer) Path: 9 mm residual IDC, DCIS, 4/5 LNs positive for carcinoma with treatment effect y pT1b pN2a Completed PMRT 01/02/2018 (Raul) 08/29/2018 s/p Left breast reconstruction revision with capsulotomies, fat grafting and implant exchange She continues to follow with Corwin Kuhn and is maintained on q 6 month Zometa and anastrozole. She was recently (last 1-2 years) had increased imaging surveillance secondary to palpable findings- that have all been noted to be stable and c/w oil cysts- fat necrosis GIVEN FINDING NOTED ON PET SCAN CONCERN THAT THIS RECURRENCE IS NOT JUST THE BIOPSY PROVEN SKIN NODULE- WHICH INITIALLY I THOUGHT IT WAS- REPEAT TARGETED IMAGING (D/W DR MORTENSEN) IN THE INFERIOR-LATERALQUADRANT- INCLUDING THE IMF SCAR. imaging: MAMMOGRAM- non-diagnostic US: few areas of fat necrosis- but per Ken- the US is difficult due to the scarring and she does not feel US is well assessing the tissue. RECOMMENDS MRI FOR FURTHER EVALUATION. D/W Dr Carrasco situation. He is going to proceed with evaluation of the mediastinal nodes to establish involvement If mediastinum is clear and no other evidence of systemic disease - would certainly be aggressive with treating the local disease (which still needs to be defined-as to extent). Work-up in progress Track closely I spent a total of 45 minutes on the date of the service which included preparing to see the patient, [id number] patient care, completing clinical documentation, obtaining and/or reviewing separately obtained history, performing a medically appropriate examination, counseling and educating the pat ient/family/caregiver, ordering medications, tests, or procedures, communicating with other HCPs (not separately reported), independently interpreting results (not separately reported), communicatingresults to the patient/family/caregiver, and care coordination (not separately reported). Eliz Bingham MD documented in this encounterCleveland Clinic [facility]04-13-2023 History of Present illness Narrative* Eliz Bingham MD - 07/19/2022 9:45 AM EDT Images from the original note were not included. LAST SEEN October 2021 for routine follow up of breast cancer history Presents today for concern regarding a palpable area on the left reconstructed breast- noted by at routine follow up on 07/04/22- patient had not noticed it herself She states she feels well and has no systemiccomplaints She had a targeted US earlier this morning at the site of concern She is maintaining on anastrozole-and seems to be tolerating it well with expected SEs including arthralgias Recall she has had chronic discomfort related to her left implant really since it was placed. She is scheduled with Rosalinda in January for a RODNYE HISTORY: Presented in 2017 with ER/SC positive, HER2 negative left LABC (worked up at [place]) [id number] Stage IIIC Neoadjuvant course (Masci): ddACx4, Taxol x12 10/08/2017 s/p Left MRM with LVB and implant (Jennifer) Path: 9 mm residual IDC, DCIS, 4/5 LNs positive for carcinoma with treatment effect y pT1b pN2a Completed PMRT 01/02/2018 (Raul) 08/29/2018 s/p Left breast reconstruction revision with capsulotomies, fat grafting and implant exchange She continues to follow with Corwin Kuhn and is maintained on q 6 month Zometa and anastrozole. She was recently (last 1-2 years) had increased imaging surveillance secondary to palpable findings- that have all been noted to be stable and c/w oil cysts- fat necrosis LAST IMAGIN05/31/22: RIGHT IMPRESSION: NEGATIVE There is no mammographic evidence of malignancy. A 1 year screening mammogram is recommended. US: LEFT- TODAY: 0.9 cm x 0.6 cm x 0.9 cm irregular mass with an indistinct margin in the left breast at 7 o'clock middle depth 6 CMFN. Biopsy recommended REVIEW OF SYSTEMS 14 point ROS is negative except for that which is stated above. EXAMINATION: RIGHT: no concerning masses LEFT: SEE PHOTOS BELOW Implant is contracted and shrunken (stable); skin pocket is fibrotic AOC: 8mm raised erythematous skin nodule at 8 o'c - concerning for metastatic skin nodule No regional adenopathy IMPRESSION: 2018: Clinical Stage IIIC ER/SC positive, HER2 negative left breast cancer s/p NACT ([facility]) s/p MRM with LV-bypass and implant October 2017 s/p PMRT- completed December 2017 maintained on q 6 month Zometa and anastrozole implant contracture secondary to radiation h/o biliary cirrhosis chemo induced cardiomyopathy. ECHO stable. On lisinopril/HCTZ s/p LEFT hip replacement (DJD) remote history of traumatic left rib fracture Change in CBE- interval development of single nodule on skin flap that is concerning for metastaticnodule. needs punch biopsy to establish diagnosis After informed consent was obtained, using Betadine for cleansing and 1% Lidocaine without epinephrine for anesthetic, with sterile technique a 4 mm punch biopsy was used to obtain a biopsy specimen of the lesion. Hemostasis was obtained by direct pressure. Antibiotic dressing is applied, and woundcare instructions provided. Be alert for any signs of cutaneous infection. The specimen is labelledand sent to pathology for evaluation. The procedure was well tolerated without complications. D/W radiology breast MRI would have little usefulness- so will schedule CT chest to access rest of the chest wall around the contracted implant I spent a total of 60 minutes on the date of the service which included preparing to see the patient, [id number] patient care, completing clinical documentation, obtaining and/or reviewing separately obtained history, performing a medically appropriate examination, counseling and educating the pat ient/family/caregiver, ordering medications, tests, or procedures, communicating with other HCPs (not separately reported), independently interpreting results (not separately reported), communicatingresults to the patient/family/caregiver, and care coordination (not separately reported). Eliz Bingham MD documented in this encounterC[facility]04-13-2023 Nurse Note* Bianca Addison RN - 07/19/2022 9:25 AM EDT Patient was referred by: follow up Did patient bring outside records to appt today? : No Last mammogram on: 05/31/2022 Results: normal Patient current bra size:40B Is the patient active on MyChart Yes Electronically Signed By: Bianca Addison RN In Department: BREAST CENTER REVIEW OF PATIENT HISTORY: OB History T2 L2 SAB0 IAB0 Ectopic0 Multiple0 Live Births2 FAMILY HISTORY Problem Relation Age of Onset Diabetes Mother Heart disease Mother Diabetes Father Hearing Loss Maternal Grandmother Heart disease Maternal Grandmother other (Lung Cancer) Paternal Grandfather smoker other (Lung Cancer) Maternal Grandfather smoker No Known Problems Sister Hypertension Brother twin Diabetes Paternal Grandmother No Known Problems Son No Known Problems Son PAST MEDICAL HISTORY Diagnosis Date Breast CA (HCC) 09/2017 Breast cyst, left 2007 HTN (hypertension) Primary biliary cirrhosis (HCC) followed by Dr. Husam Hart in [place] PAST SURGICAL HISTORY Procedure Laterality Date ARTHRP ACETBLR/PROX FEM PROSTC AGRFT/ALGRFT Right 03/20/2019 Hip replacement, total ARTHRP KNE CONDYLE&PLATU MEDIAL&LAT COMPARTMENTS Left 02/2016 BIOPSY BREAST OPEN INCISIONAL Left 2007 [facility] benign pathology per patient BREAST RECONSTRUCTION Left 2018 fat graft/implant exchange DELIVERY ONLY 1996,1993 , low transverse MASTECTOMY HX Left 2017 AND with immediate reconstruction Social History Tobacco Use Smoking status: Never Smokeless tobacco: Never Vaping Use Vaping Use: Never used Substance Use Topics Alcohol use: Yes Comment: occasional Drug use: No documented in this encounterC[facility] Clinic [facility]03-29-2023 Miscellaneous Notes* Telephone Encounter - Bianca Addison RN - 07/04/2022 3:09 PM EDT Reached out to Pat to offer her appt to see Dr Bingham on 07/19 at 9:45 with imaging prior. At 8:15. Patient accepted with appt. No further questions. documented in this encounterCleveland Clinic [facility]03-29-2023 History of Present illness Narrative* Chantale Bundy RN - 07/04/2022 11:01 AM EDT IRB#[id number]. LORI 1117: A Randomized, Open-Label, Phase 3 Study of Abemaciclib Combined with Standard Adjuvant Endocrine Therapy versus Standard Adjuvant Endocrine Therapy Alone in Patients with High Risk, Node Positive, Early Stage, Hormone Receptor Positive, Human Epidermal Receptor 2 Negative, Breast Cancer Informed Consent signed on 01/16/2018 prior to any study related procedures not deemed SOC. Randomized on: 01/24/18. ARM: Arm B: Endocrine only. Study ID: [id number] Patient is here for Zometa - this RN is seeing for Q6 month follow-up visit (V806). Physical exam, toxicities, labs, and medications reviewed with Dr. Carrasco. Spoke with Corwin in regards to patients pending implant removal vs live tissue. Patient at this time is having issues with their left implant and is looking into removal options or treatments. Patient continues to meet protocol requirements for anastrozole treatment and clinical trial follow-up. Patient is following up due to possible new mass under the left implant. ECOG Score: 0- Fully active, able to carry on all pre-disease performance w/o restriction - Last documented by Serena Carrasco DO. Clinical Trial Draw: Not required at this time QOLs: Not required at this time Mammogram: Completed in May and clear - reviewed with Serena Carrasco. 07/04/2022 Weight 91.6 kg (202 lb) Height 165.7 cm (5' 5.25) BSA 2.05 BMI 33.36 Temp 36.1 C (97 F) Pulse 80 Resp 16 Pulse Ox 94% BP 118/81 Current Medications reviewed today Drug Dose Use Start/Stop Albuterol HFA (Ventolin HFA) 90 mcg/acuation inhaler PRN Inhale 2 puffs as instructed every 4 hoursPRN For wheezing/SOB Start:02/13/2021 Lisinopril-Hydrochlorothiazide (Prinzide, Zestoretic) 20-12.5 mg tablet 1 tablet by mouth daily Forhypertension Start:05/15/2021 Paroxetine (Paxil) 10 mg tablet 1 tablet by mouth daily (Started 08/31/2020) For hot flashes Start:05/15/2021 Stop:07/04/2022 Anastrozole (Arimidex) 1 mg tablet 1 tablet by mouth daily For HR+ Breast Cancer Start:01/18/2018 Meloxicam (Mobic) 15 mg tablet Take 1 tablet by mouth daily as needed For pain Start:05/15/2021 Acetaminophen (Tylenol, Extra Strength) 500 mg tablet Take 1 tablet by mouth every 8 hours PRN For pain Start:03/22/2019 Ascorbic Acid (Vitamin C) 500 mg tablet Take 1 tablet by mouth daily Supplement Alpha Tocopheryl Acetate (Vitamin E) 400 unit capsule Take 1 capsule by mouth daily Supplement Enteric Coated Aspirin (ASA) 81 mg tablet Take 1 tablet by mouth daily For VTE/Stroke prevention Start:10/08/2017 Cyanocobalamin (Vit B12) 1000 MG tablet Take 1 tablet by mouth daily Supplement Vitamin D 50,000 unit capsule Take 1 capsule by mouth once weekly Supplement Start:03/25/2017 Ursodiol 500 mg tablet Take 1.5 tablets by mouth twice daily Start:03/25/2017 Calcium Carbonate 500 mg tablet Take 1 tablet by mouth daily Supplement Start:03/25/2017 Zoledronic Acid - Mannitol - 0.9 MaCl 4mg iv Piggyback (Zometa) One infusion (4 mg- 100 mL) every 6months Bone modifying agent (due to AI therapy) Trazadone (Deseyreyl) 50mg Tablet Take 1 tablet by mouth daily and bedtime Insomnia Start:05/29/2021 Stop: 06/06/2022 Trazadone (Deseyreyl) 25mg Tablet Take 1 tablet by mouth daily and bedtime Insomnia Start:06/07/2022 Cymbalta 30 mg Take 1 tablet by mouth daily Hot Flashes Start:07/05/[address] (PROTONIX) 40 mg tablet Take 40 mg by mouth daily before breakfast Acid Reflux Start:12/12/2021 Patient reported compliance with anastrozole. Current CTCAE V5 Toxicities Pain (left foot): Grade 2. Start Date: Approximately Feb 2020. Unrelated to anastrozole, related toarthritis. Drugs to Treat: Mobic 15 mg PRN. Action Required: None. Outcome: Ongoing. Hot flashes. Grade 1. Start Date: approximately 02/25/2018. Related to anastrozole. Drugs to Teat: Paxil. Action Required: None. Outcome: Improving and ongoing. Peripheral Sensory Neuropathy (tips of thumbs). Grade 1. PRIOR TO STUDY.Start Date: approximately July 2017. Drugs to Treat: None. Action Required: None. Outcome: Ongoing/Stable. Insomnia. Grade 1. Start Date: Approximately 08/31/2020. Unrelated to anastrozole side effects (hot flashes). Drugs to Treat: Trazadone. Action Required: None. Outcome: Ongoing and improving. Hyperglycemia: Grade 1. Start Date: Prior to study but noted under CTCAE 08/02/2021. Drugs to Treat: None. Action Required:None Outcome: Ongoing Hypokalemia: Grade 1. Start Date: 01/18/2022 Stopped Date: 07/04/2022. Drugs to Treat: None. ActionRequired:None Outcome: RESOLVED Back pain (stiffness): Grade 1. Start Date: 08/02/2021. Drugs to Treat: Mobic and Tylenol. Action Required:None Outcome: Ongoing Menopausal Status: Post Contraception: NA LMP: 09/06/2009 Follow Up: 10/25/2022 - Eliz Bingham for nodule 12/20/2022 - Serena Carrasco OV/Labs Patient aware that next visit per protocol is in 6 months. Patient has contact information for Dr. Carrasco's office/Research Team for any questions/concerns in the interm. MATTY Bruner, RN Clinical Research Nurse [phone] documented in this encounterCleveland Clinic [facility]03-29-2023 History of Present illness Narrative* Serena Carrasco DO - 07/04/2022 10:01 AM EDT Diagnosis: 1) Breast cancer. HPI: The patient is a 61-year-old postmenopausal female who has a past medical history significant for hypertension and primary biliary cirrhosis. She is seen by her mems process engineer approximately once ayear and she has had stable findings. Most recent liver chemistries performed at [facility] on 01/10/2017 showed a total bilirubin of 0.3 mg/dL with a direct bilirubin of 0.09 mg/dL. The AST was 19 and the ALT was 23. Alkaline phosphatase was 95. CBC at that time was normal with a white count of 8900. No differential. Hemoglobin 12.2 g/dL platelet count 237,000. Coagulation studiesshowed a normal INR 1.0 with a PT of 13.0 seconds. Evidently she was on a trip to [place] about 2 1/2 years ago when she developed pleuritic right-sided chest pain. She presented to local ER there. She's not sure what radiographic studies weredone but she was told that there was a concern she had lung cancer and she was to follow-up when she got back home. Over the last 2 years she's had a number of radiographic studies including CT of the chest as well as PET scan last year that showed no evidence of malignancy. She's had pain under left breast that was attributed to rib fracture with healing. Over the last year there's been a lump in lower left breast thought associated to healing underlying rib fracture. Core needle biopsy performed on 03/29/2017: Left breast, core biopsy: Invasive ductal carcinoma, nuclear grade 2 (1.3 cm in greatest length). ER (clone [id number]) >95%, strong SC (clone 16/1E2) >95%, strong Her-2Neu (clone CB11) 0 There was a spiculated mass at the lower outer left breast measuring 2.7 x 1.8 x 3.5 cm with central clip artifact consistent with the biopsy-proven malignancy. It was in the posterior depth but there was no evidence of chest wall involvement. There were no other abnormal areas of enhancement within the left breast. There were 2 abnormally thickened enhancing lymph nodes high in the left axilla that were suspicious for axillary node metastases. There are also several rounded nodes in the left high subpectoral region with the largest measuring 7 mm in short axis. These were noted to be suspicious. A possible 4 mm in short axis left internal mammary node was also appreciated. Full staging workup including CT scans of the chest, abdomen and pelvis as well as brain MRI and whole-body bone scan shows some mild activity in the distal femur on the right. Plain films showed degenerative changes without any osteoblastic or osteolytic activity. The CT scans disclosed 2 hypodense lesions in the liver that on MRI had signal characteristics consistent with hemangioma. Brain MRI was normal. Previous therapy: 1) Neoadjuvant AC followed by Taxol. 2) Underwent a left nipple sparing mastectomy with left axillary lymph node dissection and left armreverse axillary mapping on 10/08/2017. This was done in conjunction with a implant and acellular dermal matrix with a lymphatico-venous bypass to the left axilla. 3) Adjuvant radiation. Completed 01/02/2018. Pathology from 10/08/2017 surgery: 1. Left axillary contents, excision (A) - Four of five lymph nodes, positive for metastatic carcinoma (4/5) with treatment effect. - Extranodal extension is present. - Biopsy clips and changes consistent with prior biopsy sites. 2. Left breast, mastectomy (B) - Fibrous tumor bed with residual invasive ductal carcinoma, histologic grade 1. - Ductal carcinoma in situ, intermediate nuclear grade, solid type. - Biopsy clip and changes consistent with prior biopsy site. - Please see synoptic report. SYNOPTIC REPORT OF [place] PATHOLOGIC FINDINGS LEFT BREAST: BREAST INVASIVE CARCINOMA WORKSHEET Part: A and B Procedure: Total mastectomy (including nipple-sparing and skin-sparing mastectomy) Specimen Laterality: Left Tumor size: Size of largest invasive carcinoma: Greatest dimension of largest focus of invasion >1 mm: 9 mm Tumor Focality: Single focus of invasive carcinoma Histologic Type of Invasive Carcinoma: Invasive carcinoma of no special type (ductal, not otherwise specified) Histologic Grade: Glandular (Acinar) / Tubular Differentiation: Score 2 Nuclear Pleomorphism: Score 2 Mitotic Rate: Score 1 (<=3 mitosis per mm2) Overall Grade: Grade I Ductal Carcinoma In Situ: DCIS is present in specimen DCIS Nuclear Grade: Grade II (intermediate) Tumor Extension: Skin: Not applicable Nipple: Not applicable Skeletal muscle: Not applicable Invasive Carcinoma Margins: Margins uninvolved by invasive carcinoma Distance from closest margin: 2 mm Closest margin: Inferior radial DCIS Margins: Margins uninvolved by DCIS Distance from closest margin: 5 mm Closest margin: Inferior radial Lymph Nodes: Involved by tumor cells Number of lymph nodes with macrometastases (>2 mm): 4 Number of lymph nodes with micrometastases (>0.2 mm to 2 mm and/or >200 cells): 0 Number of lymph nodes with isolated tumor cells (<= 0.2 mm and <= 200 cells): 0 Size of largest metastatic deposit: 8 mm Extranodal extension present: 1.5 mm Number of lymph nodes examined: 5 Treatment Effect: Treatment effect in the breast Treatment effect in the lymph nodes Probable or definite response to presurgical therapy in the invasive carcinoma Probable or definite response to presurgical therapy in metastatic carcinoma Lymph-Vascular Invasion: Present Pathologic Stage Classification (pTNM,AJCC 8th ed) TNM Descriptor(s): y (post- treatment) Primary Tumor (Invasive Carcinoma) (pT): pT1b Regional Lymph Nodes (pN): Modifier: Not applicable Category (pN): pN2a Distant metastasis: Distant Metastasis (pM) Not applicable/Not confirmed pathologically in this case Estrogen & progesterone receptors: Previously performed (HER2) ERBB2 Status: 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 2) Radiation to left chest wall/axilla and supraclavicular area completed 01/02/2018. 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 Current therapy: 1[facility] Presents for ongoing oncologic management. Interim history: Has noticed an increase in frequency of hot flashes. Not as bad as they were prior to Paxil. Stable numbness of the fingertips and some stiffness and pain of the carpometacarpal joints of the thumbs. No symptoms of cardiomyopathy including chest pain/pressure, shortness of breath at rest or with exertion, lower extremity swelling/edema, PND or orthopnea. Endurance improving. PMH, medications and allergies personally reviewed by me today. Any changes documented in appropriate section. ROS: Constitutional: Denies episodes of fever and night sweats. Neuro: Denies YOUSIF, vertigo, dizziness and imbalance. HEENT: No recent change in voice, vision or hearing. Resp: Denies cough, wheeze and hemoptysis. CVS: See above. GI: Denies dysgeusia. Denies symptoms of stomatitis. Denies dysphagia and odynophagia. Denies reflux. : Denies dysuria or gross hematuria. No symptoms of bladder outlet obstruction. Endo: Denies polyuria and polydipsia. Denies heat and cold intolerance. Musculoskeletal: See above. Derm: Denies rash. Denies jaundice and diffuse pruritis. Heme: Denies unusual bleeding and unexplained bruising. Psych: Normal mood. PHYSICAL EXAM: Vitals: Blood pressure 118/81, pulse 80, temperature 36.1 C (97 F), temperature source Temporal, height 165.7 cm (5' 5.25), weight 91.6 kg (202 lb), SpO2 94 %. Well-appearing and in no acute distress. EYES: Sclerae are anicteric bilaterally. LYMPHATIC: There is no palpable cervical or supraclavicular adenopathy. No axillary adenopathy. RESPIRATORY: Inspiratory breath sounds are of normal intensity in all [place]ob[place]. No rales, wheezes or rhonchi. CARDIOVASCULAR: Rhythm is regular. 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 Left sided implant remains contracted. Stable less than BB sized palpable nodules along the superior margin of the breast implant. There is a new, firm subcutaneous mobilenodule inferior side left breast implant. Right breast--No mass or nodule. ABDOMEN: The abdomen is nondistended. No organomegaly. No tenderness. Extremities: No swelling or edema. SKIN: No jaundice or rash. NEUROLOGIC: spa director/finance II-XII are grossly intact. No focal motor weakness. MUSCULOSKELETAL: No muscle wasting. No joint swelling of the hands. 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 -KPS is 100%. -Overall tolerating anastrozole well with the exception of an increase in frequency of hot flashes and continued arthralgias particularly of the base of the thumbs bilaterally. -Fingertip numbness stable -New firm subcutaneous nodule underside of left breast. -Reviewed mammogram results. Plan: -Referral to Dr. Bingham for assessment of the nodule. -Due for right mammogram 04/2023. -Continue q 6 month Zometa. Last planned dose August of this year. -Continue anastrozole. -Rotate from Paxil to duloxetine 30 mg daily. -OV in 6 months. (I42.7, T45.1X5A) Chemotherapy-induced cardiomyopathy (HCC) Assessment: -Patient had otherwise unexplained persistent tachycardia. Echo showed normal EF but I reviewed with cardiology--there was a 10 percent change in the strain pattern suggestive of early cardiomyopathy. -Changed back to lisinopril/HCTZ which she had been on prior to diagnosis breast cancer. -Blood pressure continues under better control. Plan: -Continue lisinopril/HCTZ. -Follow up with PCP for general health maintenance management. Portions of this documentation were copied and pasted from previous office visit notes in order to provide a cohesive continuity of the history. The note has been reviewed and edited and updated as necessary. I spent a total of 25 minutes on the date of the service which included preparing to see the patient, [id number] patient care, completing clinical documentation, obtaining and/or reviewing separately obtained history, performing a medically appropriate examination, counseling and educating the pat ient/family/caregiver, ordering medications, tests, or procedures, communicating with other HCPs (not separately reported), and communicating results to the patient/family/caregiver. Serena Carrasco DO documented in this encounterCleveland Clinic [facility]03-27-2023 Miscellaneous Notes* Telephone Encounter - Kamala Morales LPN - 07/02/2022 1:19 PM EDT Last office visit: 02/19/22 Next appointment scheduled: 03/11/23 * Telephone Encounter - Val Gray [facility] [place] - 07/02/2022 12:11 PM EDT Pat Sorto is calling Jacinta Rivas MD today to request a medication not found on current med list: Trazadone 50 mg taking one daily When provider approves [facility] [place] Call patient with any concerns at phone number below which has been verified. Patient has been identified by name and birthdate. Person calling: self Call patient at: on cell [phone] cell Was an appointment scheduled: No Closing statement: Results or non-symptom based questions: Thank you for calling [facility], your call will be returned within the next business day. Val Gray [facility] documented in this encounterCleveland Clinic [facility]03-20-2023 Miscellaneous Notes* Telephone Encounter - Kasie Moraes LPN - 06/25/2022 7:31 AM EDT Patient has been identified by name and date of : Yes Requested Prescriptions Pending Prescriptions Disp Refills anastrozole (ARIMIDEX) 1 mg tablet [Pharmacy Med Name: ANASTROZOLE TABS 1MG] 90 tablet 3 Sig: TAKE 1 TABLET DAILY RX INSTRUCTIONS: Patient aware RX will be sent to pharmacy. No need to notify patient. Kasie Moraes LPN documented in this encounterCleveland Clinic [facility] Hospital02-24-2023 Miscellaneous Notes* Letter - Mammography Coordinator - 06/01/2022 8:22 AM EST June 04, 2022 PID: [id number] Pat Sorto [address] [place] [address] Dear Ms. Sorto, We are pleased to inform you that the results of your recent breast imaging exam on 05/31/2022 are normal. Your mammogram demonstrates that you have dense breast tissue, which could hide abnormalities. Dense breast tissue, in and of itself, is a relatively common condition. Therefore, this information is not provided to cause undue concern; rather, it is to raise your awareness and promote discussion with your health care provider regarding the presence of dense breast tissue in addition to other riskfactors. Early detection of cancer is very important. We also understand recommendations regarding breast cancer screening are controversial. Please discuss with your primary care provider which strategy is best for you and whether a mammogram is right for you. Your imaging studies and report will be kept on file at [facility] as part of your permanent medical record and are available for your continuing care. Thank you for allowing us to help in meeting your health care needs. Sincerely, Dr. Ro Interpreting Radiologist [facility] (Normal over 40) documented in this encounterCleveland Clinic [facility] Hospital02-17-2023 Miscellaneous Notes* Telephone Encounter - Kasie Moraes LPN - 05/25/2022 7:31 AM EST Patient has been identified by name and date of : Yes Requested Prescriptions Pending Prescriptions Disp Refills lisinopril-hydroCHLOROthiazide (PRINZIDE,ZESTORETIC) 20-12.5 mg per tablet [Pharmacy Med Name: LISINOPRIL/HCTZ TABS 20/12.5MG] 90 tablet 3 Sig: TAKE 1 TABLET DAILY PARoxetine (PAXIL) 10 mg tablet [Pharmacy Med Name: PAROXETINE HCL TABS 10MG] 90 tablet 3 Sig: TAKE 1 TABLET DAILY RX INSTRUCTIONS: Patient aware RX will be sent to pharmacy. No need to notify patient. Kasie Moraes LPN documented in this encounterC[facility]-19-[facility]23 Miscellaneous Notes* Telephone Encounter - Анна Peck LPN - 04/26/2022 9:00 AM EST Pt notified and voices understanding. Анна Peck LPN * Telephone Encounter - Kassy Raman APRN.CNP - 04/26/2022 8:37 AM EST Please inform pt. of her MRI results. Impression: Splenic lesion seen on CTA is benign, either a cyst/pseudocyst. No worrisome findings in the abdomen. Follow up as scheduled. Thank you. Kassy Raman APRN.SONIDO documented in this encounterCleveland Clinic [facility]12-19-2022 NoteIMPRESSION: 1. Stable right RED 2. Progressive advanced left hip osteoarthrosis Script Worker: MARTÍNEZ Transcribe Date/Time: Mar 26 2022 2:12P Dictated by : WENDY MITCHELL MD This examination was interpreted and the report reviewed and electronically signed by: WENDY MITCHELL MD on Mar 26 2022 2:12PM EST MERAZ [id number] History of Present illness Narrative* Subhash Avila PA-C - 03/26/2022 9:51 AM EST Images from the original note were not included. DEPARTMENT OF ORTHOPAEDICS CC: Follow-up visit after total hip replacement HPI: Ms. Sorto is here today for her 3 year clinical follow up status post right total hip replacement.Since her last visit Ms. Sorto conveys the interval has been complicated by occasional right hip pain that radiates to her knee. She denies trauma or change inactivity level. She has known OA of theright knee but states this pain is different. Some relief with ibuprofen. Pleased with outcome: Yes Pain: 0 and 7 on a scale of 1-10 Ambulatory support: none Distance able to walk:> 30 minutes Stairs Normal sequence, unless pain is aggravated Requires a handrail: No Able to arise from chair: Yes with ease Able to do shoes/socks: Yes with ease Back issues: Yes Pain Medication: none REVIEW OF SYSTEMS No new medical issues PAST MEDICAL HISTORY Diagnosis Date Breast CA (HCC) 09/2017 Breast cyst, left 2007 HTN (hypertension) Primary biliary cirrhosis (HCC) followed by Dr. Husam Hart in [place] PAST SURGICAL HISTORY Procedure Laterality Date ARTHRP ACETBLR/PROX FEM PROSTC AGRFT/ALGRFT Right 03/20/2019 Hip replacement, total ARTHRP KNE CONDYLE&PLATU MEDIAL&LAT COMPARTMENTS Left 02/2016 BIOPSY BREAST OPEN INCISIONAL Left 2007 [facility] benign pathology per patient BREAST RECONSTRUCTION Left 2019 fat graft/implant exchange DELIVERY ONLY 1996,1993 , low transverse MASTECTOMY HX Left 2017 AND with immediate reconstruction Current Outpatient Medications Medication Sig Dispense Refill pantoprazole DR (PROTONIX) 40 mg tablet Take 40 mg by mouth daily before breakfast. Lactobacillus acidophilus (PROBIOTIC ORAL) Take by mouth once daily. Super Now traZODone (DESYREL) 50 mg tablet Take 1 tablet by mouth daily at bedtime. 90 tablet 3 PARoxetine (PAXIL) 10 mg tablet Take 1 tablet by mouth once daily. 90 tablet 3 lisinopril-hydroCHLOROthiazide (PRINZIDE,ZESTORETIC) 20-12.5 mg per tablet Take 1 tablet by mouth once daily. 90 tablet 3 anastrozole (ARIMIDEX) 1 mg tablet Take 1 tablet by mouth once daily. 90 tablet 3 meloxicam (MOBIC) 15 mg tablet Take 15 mg by mouth once daily as needed. acetaminophen (TYLENOL) 500 mg tablet Take 500 mg by mouth every 8 hours as needed for Pain. ascorbic acid, vitamin C, (VITAMIN C) 500 mg tablet Take 500 mg by mouth once daily. alpha tocopheryl acetate (VITAMIN E) 400 unit capsule Take 400 Units by mouth once daily. aspirin, enteric coated (ASPIRIN, ENTERIC COATED) 81 mg EC tablet Take 1 tablet by mouth once daily. cyanocobalamin (VITAMIN B-12) 1,000 mcg tab Take 1,000 mcg by mouth once daily. VITAMIN D 50,000 unit capsule 1 capsule one time a week. Ursodiol 500 mg tablet 1.5 tablets twice daily. CALCIUM CARBONATE (CALCIUM 500 ORAL) Take 1 tablet by mouth once daily. No current facility-administered medications for this visit. ALLERGIES No Known Allergies FAMILY HISTORY Problem Relation Age of Onset Diabetes Mother Heart disease Mother Diabetes Father Hearing Loss Maternal Grandmother Heart disease Maternal Grandmother other (Lung Cancer) Paternal Grandfather smoker other (Lung Cancer) Maternal Grandfather smoker No Known Problems Sister Hypertension Brother twin Diabetes Paternal Grandmother No Known Problems Son No Known Problems Son Social History Tobacco Use Smoking status: Never Smokeless tobacco: Never Vaping Use Vaping Use: Never used Substance Use Topics Alcohol use: Yes Comment: occasional Drug use: No EXAMINATION: GENERAL: no apparent distress RESP: Unlabored with no shortness of breath CV: No extremity swelling, varices, edema, pallor, erythema Ms. Sorto has no difficulty arising out of a chair and has no difficulty ambulating in the exam room. her gait was normal and able to toe walk without difficulty. LOWER EXTREMITIES: Right Hip: . Flexion was 100 degrees, extension full extension, 25 external, 20 degrees internal rotation. Active abduction was 25. Left Hip: Flexion was 110 degrees, extension full extension, 30 external, 20 degrees internal rotation. Active abduction was 30. KNEE EXAM: Examination of the left knee, S/P TKA, was unremarkable with good ROM and stability. Knee exam on the right shows mild effusion. Range of motion full extension to 120 degrees of flexion . Significant patellofemoral crepitus. No instability. Ligamentous structures are intact. McMurrays was negative. Both lower extremities were neurovascularly intact, has no evidence of cellulitis, and has no distal swelling. X-RAYS: Status post primary right total hip arthroplasty with uncemented components. Radiographic review has no findings of loosening, has no findings of wear, and has no other complicating process. ASSESSMENT: S/P right total hip arthroplasty, significantly improved from pre-operative state, and experiencingpain from IT band syndrome and arthritis right knee PLAN: Prescription given for out-patient physical therapy, Continue home exercise program. Consider knee injection in future Follow up will be in 2 years. If there are any questions or problems, patient instructed to call the office. Rx Drug Management: New prescription entered into [employer]. Subhash Avila PA-C documented in this encounterCleveland Clinic [facility]12-19-2022 Miscellaneous Notes* Kasie Alvarado RT(R) - 03/26/2022 9:00 AM EST Radiology Service Progress Note PATIENT NAME: Pat Sorto DATE OF SERVICE: March 26, 2022 TIME: 9:25 AM PATIENT IDENTITY VERIFICATION COMPLETED USING TWO (2) IDENTIFIERS: Name and Date of confirmedby patient verbally. FALL SCREENING: Has the patient had 2 falls in the last year or 1 fall with injury or currently using an Ambulatory Assistive Device (Walker, Cane, Wheelchair, Crutches, etc.)? No PATIENT GENDER DATA: Female. status: : No status: NO. PATIENT RELEVANT IMPLANT DATA REVIEWED: Not Applicable RADIOLOGY DEPARTMENT: General X-ray: Exam(s) Completed: Pelvis X-Ray: Pelvis General AP PERIPHERAL IV DATA: Not applicable SIGNED BY: RT Laura(Alis) March 26, 2022 9:25 AM documented in this encounterCleveland Clinic [facility]12-19-2022 Progress note* Kasie Alvarado RT(R) - 03/26/2022 9:00 AM EST Radiology Service Progress Note PATIENT NAME: Pat Sorto DATE OF SERVICE: March 26, 2022 TIME: 9:25 AM PATIENT IDENTITY VERIFICATION COMPLETED USING TWO (2) IDENTIFIERS: Name and Date of confirmedby patient verbally. FALL SCREENING: Has the patient had 2 falls in the last year or 1 fall with injury or currently using an Ambulatory Assistive Device (Walker, Cane, Wheelchair, Crutches, etc.)? No PATIENT GENDER DATA: Female. status: : No status: NO. PATIENT RELEVANT IMPLANT DATA REVIEWED: Not Applicable RADIOLOGY DEPARTMENT: General X-ray: Exam(s) Completed: Pelvis X-Ray: Pelvis General AP PERIPHERAL IV DATA: Not applicable SIGNED BY: RT Laura(R) March 26, 2022 9:25 AM [facility]12-13-[facility] Miscellaneous Notes* Telephone Encounter - Jacinta Rivas MD - 03/20/2022 10:13 PM EST See MyChart reply documented in this encounterCleveland Clinic [facility]11-21-2022 Miscellaneous Notes* Telephone Encounter - Svetlana Kong LPN - 02/26/2022 9:25 AM EST Detailed message left on patient's identified VM. Patient to contact ofice for further questions. Svetlana Kong LPN * Telephone Encounter - Kassy Raman APRN.CNP - 02/26/2022 9:10 AM EST CTA was ordered by Dr. Rodriguez. She will need to discuss with her. Thank you. Kassy Raman APRN.CNP * Telephone Encounter - Анна Peck LPN - 02/23/2022 2:55 PM EST Will fax to Dr Tellez. She is asking for results of CTA. Анна Peck LPN * Telephone Encounter - Susana Castillo Pss - 02/23/2022 2:33 PM EST Patient is requesting a return call from [place] in regards to a few test that was completed and asking if they was sent to Dr Tellez in [place]? She is also asking about the results of the CTA please return call to patient. documented in this encounterCleveland Clinic [facility]11-14-2022 History of Present illness Narrative* Jacinta Rivas MD - 02/19/2022 9:20 AM EST This note was created using [employer]. Subjective Pat Sorto is a 62 year old female. HISTORY Pat Sorto is a 62 year old lady here for yearly exam and follow up appointment. UTI still after 2 different antibiotics treated through [facility]. Symptoms would get better with just some pain at end of stream. Still really tired and fatigued, Urine still cloudy. Worse UTI symptoms off antibody. Thinks getting enough fluids most days--has Yeti. Paxil great for hot flashes. Only needs meloxicam a couple times a week. Walking 6 miles a day sometimes and still can be up a pound. Watching carbs and sugars. Rare pop. PAST MEDICAL HISTORY Diagnosis Date Breast CA (HCC) 09/2017 Breast cyst, left 2007 HTN (hypertension) Primary biliary cirrhosis (HCC) followed by Dr. Husam Hart in [place] Current Outpatient Medications Medication Sig meloxicam (MOBIC) 15 mg tablet Take 1 tablet by mouth once daily. pantoprazole DR (PROTONIX) 40 mg tablet Take 40 mg by mouth daily before breakfast. Lactobacillus acidophilus (PROBIOTIC ORAL) Take by mouth once daily. Super Now traZODone (DESYREL) 50 mg tablet Take 1 tablet by mouth daily at bedtime. PARoxetine (PAXIL) 10 mg tablet Take 1 tablet by mouth once daily. lisinopril-hydroCHLOROthiazide (PRINZIDE,ZESTORETIC) 20-12.5 mg per tablet Take 1 tablet by mouth once daily. anastrozole (ARIMIDEX) 1 mg tablet Take 1 tablet by mouth once daily. albuterol HFA (VENTOLIN HFA) 90 mcg/actuation inhaler Inhale 2 Puffs as instructed every 4 hours asneeded for wheezing/shortness of breath. meloxicam (MOBIC) 15 mg tablet Take 15 mg by mouth once daily as needed. acetaminophen (TYLENOL) 500 mg tablet Take 500 mg by mouth every 8 hours as needed for Pain. ascorbic acid, vitamin C, (VITAMIN C) 500 mg tablet Take 500 mg by mouth once daily. alpha tocopheryl acetate (VITAMIN E) 400 unit capsule Take 400 Units by mouth once daily. aspirin, enteric coated (ASPIRIN, ENTERIC COATED) 81 mg EC tablet Take 1 tablet by mouth once daily. cyanocobalamin (VITAMIN B-12) 1,000 mcg tab Take 1,000 mcg by mouth once daily. VITAMIN D 50,000 unit capsule 1 capsule one time a week. Ursodiol 500 mg tablet 1.5 tablets twice daily. CALCIUM CARBONATE (CALCIUM 500 ORAL) Take 1 tablet by mouth once daily. No current facility-administered medications for this visit. ALLERGIES No Known Allergies FAMILY HISTORY Problem Relation Age of Onset Diabetes Mother Heart disease Mother Diabetes Father Hearing Loss Maternal Grandmother Heart disease Maternal Grandmother other (Lung Cancer) Paternal Grandfather smoker other (Lung Cancer) Maternal Grandfather smoker No Known Problems Sister Hypertension Brother twin Diabetes Paternal Grandmother No Known Problems Son No Known Problems Son Social History Tobacco Use Smoking status: Never Smokeless tobacco: Never Vaping Use Vaping Use: Never used Substance Use Topics Alcohol use: Yes Comment: occasional Drug use: No Review of Systems Objective BP 112/78 Pulse 85 Ht 166.4 cm (5' 5.5) Wt 90.7 kg (200 lb) SpO2 98% BMI 32.78 kg/m Physical Exam Vitals reviewed. Constitutional: Appearance: She is well-developed. HENT: Head: Normocephalic and atraumatic. Right Ear: External ear normal. Left Ear: External ear normal. Nose: Nose normal. Eyes: Conjunctiva/sclera: Conjunctivae normal. Neck: Thyroid: No thyromegaly. Cardiovascular: Rate and Rhythm: Normal rate and regular rhythm. Pulses: Normal pulses. Heart sounds: Normal heart sounds. No murmur heard. No friction rub. No gallop. Pulmonary: Effort: Pulmonary effort is normal. Breath sounds: Normal breath sounds. Abdominal: General: Bowel sounds are normal. There is no distension. Palpations: Abdomen is soft. There is no mass. Tenderness: There is no abdominal tenderness. Musculoskeletal: General: No deformity. Normal range of motion. Lymphadenopathy: Cervical: No cervical adenopathy. Skin: General: Skin is warm and dry. Coloration: Skin is not jaundiced or pale. Findings: No rash. Neurological: General: No focal deficit present. Mental Status: She is alert and oriented to person, place, and time. Cranial Nerves: No cranial nerve deficit. Sensory: No sensory deficit. Motor: No abnormal muscle tone. Coordination: Coordination normal. Deep Tendon Reflexes: Reflexes normal. Psychiatric: Mood and Affect: Mood normal. Behavior: Behavior normal. Thought Content: Thought content normal. Judgment: Judgment normal. Component Latest Ref Rng & Units 08/02/2021 01/18/2022 02/16/2022 WBC 3.70 - 11.00 k/uL 7.21 8.96 RBC 3.90 - 5.20 m/uL 4.15 4.04 Hemoglobin 11.5 - 15.5 g/dL 12.9 12.6 Hematocrit 36.0 - 46.0 % 38.1 37.2 MCV 80.0 - 100.0 fL 91.8 92.1 MCH 26.0 - 34.0 pg 31.1 31.2 MCHC 30.5 - 36.0 g/dL 33.9 33.9 RDW-CV 11.5 - 15.0 % 12.1 12.1 Platelet Count 150 - 400 k/uL 224 240 MPV 9.0 - 12.7 fL 10.4 10.4 Neut% % 60.9 71.1 Abs Neut (ANC) 1.45 - 7.50 k/uL 4.40 6.36 Lymph% % 28.6 20.5 Abs Lymph 1.00 - 4.00 k/uL 2.06 1.84 Chase% % 7.8 6.1 Abs Chase <0.87 k/uL 0.56 0.55 Eosin% % 1.8 1.3 Abs Eosin <0.46 k/uL 0.13 0.12 Baso% % 0.6 0.6 Abs Baso <0.11 k/uL 0.04 0.05 Immature Gran % % 0.3 0.4 IMMATURE GRANS (ABS) <0.10 k/uL <0.03 0.04 NRBC /100 WBC 0.0 0.0 Absolute nRBC <0.01 k/uL <0.01 <0.01 DTYPE Auto Auto Protein, Total 6.3 - 8.0 g/dL 7.2 6.8 Albumin 3.9 - 4.9 g/dL 4.1 3.9 Calcium 8.5 - 10.2 mg/dL 9.3 8.7 9.1 Bilirubin, Total 0.2 - 1.3 mg/dL 0.4 0.3 Alkaline Phosphatase 34 - 123 U/L 56 68 AST 13 - 35 U/L 16 16 ALT 7 - 38 U/L 12 11 Glucose 74 - 99 mg/dL 133 (H) 137 (H) 158 (H) BUN 7 - 21 mg/dL 27 (H) 21 22 (H) Creatinine 0.58 - 0.96 mg/dL 0.91 0.93 1.00 (H) Sodium 136 - 144 mmol/L 137 137 138 Potassium 3.7 - 5.1 mmol/L 4.0 3.4 (L) 3.8 Chloride 97 - 105 mmol/L 103 103 103 CO2 22 - 30 mmol/L 24 26 28 Anion Gap 9 - 18 mmol/L 10 8 (L) 7 (L) eGFR >=60 mL/min/1.73m 71 70 63 Noted02/14/22 CT abd/pelvis: IMPRESSION: 1. There is a new well-circumscribed low-density lesion in the anterior aspect of the spleen which may represent a cyst. This could be further evaluated by MRI. 2. Cholelithiasis 3. Right renal calculi. No hydronephrosis. ACTIONABLE RESULT: FOLLOW-UP Acuity: Actionable Findings: Other Routing Code: Misc_1 Recommendation: Unlisted Recommendation (see report) Time Frame: At the discretion of the clinical team. COMMUNICATION: Results will be communicated with the ordering provider via [employer] staff message or phone message by [facility] within 2 business days of report finalization. Assessment and Plan Encounter Diagnosis ICD-10-CM 1. Routine medical exam Z00.00 2. Elevated glucose R73.09 HEMOGLOBIN A1C (POC) 3. Acute cystitis without hematuria N30.00 UA DIP, URINE (POC) ciprofloxacin HCl (CIPRO) 500 mg tablet 4. Encounter for immunization Z23 PNEUMOCOCCAL VACCINE (PREVNAR 20) Patient here for yearly exam and follow up. Discussed exercise and diet to help prevent diabetes mellitus as well as to help with weight. Needsto keep working on diet and exercise with lifestyle changes for effective weight loss as well as prevention of DM, and control of BP and lipids. Discussed management of UTIs. Discussed Cipro and need to avoid taking with calcium or iron with it; also risk of Achilles rupture. Further evaluation and treatment as indicated. Above issues addressed with patient. Patient involved in shared decision making for management of medical issues. History and medications reviewed. Epic updated as needed Refills taken care of and meds adjusted as indicated after reviewed history, exam and labs. Health Maintenance reviewed. Updated record and/or ordered tests as recorded. Encouraged on efforts at healthy diet and regular exercise and adequate sleep. Jacinta Rivas MD documented in this encounterCleveland [facility]11-03-2022 Miscellaneous Notes* Telephone Encounter - Henrietta Burk MA - 02/08/2022 8:27 AM EDT Informed pt of medication change. Pt verbalized understanding. Henrietta Burk MA * Telephone Encounter - Sen Lopez MD - 02/07/2022 12:50 PM EDT Keflex Rx sent. Stop nitrofurantoin. * Telephone Encounter - Bobbi Saavedra - 02/07/2022 12:42 PM EDT Patient states she is still having a lot of frequency, cloudy and odor. requesting different medication. Please call patient with recommendation. Bobbi Saavedra * Telephone Encounter - Brent Wall APRN.CNP - 02/07/2022 11:40 AM EDT Please notify that urine culture came back positive for uti. The antibiotic came back intermediate/possible not to work. Ask if s/s still present or getting worse, I will order different atb. If s/s resolved can leave on macrobid documented in this encounterCleveland Clinic [facility]10-31-2022 History of Present illness Narrative* Victoria Duarte APRN.SONIDO - 02/05/2022 10:20 AM EDT CC: Patient presents with: UTI: Frequency, burning x 5 days HPI Pat Sorto is a 61 year old female who presents with complaint of possible UTI. These symptomshave been present for 5 days. Associated symptoms: burning and frequency Denies: fever, chills, sweats, abdominal pain, and flank pain Treatments: nothing The ROS was otherwise negative. PMH, Medications, labs, allergies, and recent past visits with PCP were reviewed and updated as able. PHYSICAL EXAM: BP 130/92 Pulse 95 Temp 37.2 C (99 F) Resp 24 Wt 91.4 kg (201 lb 9.6 oz) SpO2 98% BMI 33.29 kg/m General: Well appearing and alert CV: Regular rate and rhythm without obvious murmur Lungs: clear to auscultation bilaterally Back: straight and symmetric Abdomen: soft, nontender, nondistended PAST MEDICAL HISTORY Diagnosis Date Breast CA (HCC) 09/2017 Breast cyst, left 2007 HTN (hypertension) Primary biliary cirrhosis (HCC) followed by Dr. Husam Hart in [place] PAST SURGICAL HISTORY Procedure Laterality Date ARTHRP ACETBLR/PROX FEM PROSTC AGRFT/ALGRFT Right 03/20/2019 Hip replacement, total ARTHRP KNE CONDYLE&PLATU MEDIAL&LAT COMPARTMENTS Left 02/2016 BIOPSY BREAST OPEN INCISIONAL Left 2007 [facility] benign pathology per patient BREAST RECONSTRUCTION Left 2018 fat graft/implant exchange DELIVERY ONLY 1996,1993 , low transverse MASTECTOMY HX Left 2018 AND with immediate reconstruction ALLERGIES Patient has no known allergies. MEDICATIONS meloxicam (MOBIC) 15 mg tablet Take 1 tablet by mouth once daily. pantoprazole DR (PROTONIX) 40 mg tablet Take 40 mg by mouth daily before breakfast. Lactobacillus acidophilus (PROBIOTIC ORAL) Take by mouth once daily. Super Now traZODone (DESYREL) 50 mg tablet Take 1 tablet by mouth daily at bedtime. PARoxetine (PAXIL) 10 mg tablet Take 1 tablet by mouth once daily. lisinopril-hydroCHLOROthiazide (PRINZIDE,ZESTORETIC) 20-12.5 mg per tablet Take 1 tablet by mouth once daily. anastrozole (ARIMIDEX) 1 mg tablet Take 1 tablet by mouth once daily. albuterol HFA (VENTOLIN HFA) 90 mcg/actuation inhaler Inhale 2 Puffs as instructed every 4 hours asneeded for wheezing/shortness of breath. meloxicam (MOBIC) 15 mg tablet Take 15 mg by mouth once daily as needed. acetaminophen (TYLENOL) 500 mg tablet Take 500 mg by mouth every 8 hours as needed for Pain. ascorbic acid, vitamin C, (VITAMIN C) 500 mg tablet Take 500 mg by mouth once daily. alpha tocopheryl acetate (VITAMIN E) 400 unit capsule Take 400 Units by mouth once daily. aspirin, enteric coated (ASPIRIN, ENTERIC COATED) 81 mg EC tablet Take 1 tablet by mouth once daily. cyanocobalamin (VITAMIN B-12) 1,000 mcg tab Take 1,000 mcg by mouth once daily. VITAMIN D 50,000 unit capsule 1 capsule one time a week. Ursodiol 500 mg tablet 1.5 tablets twice daily. CALCIUM CARBONATE (CALCIUM 500 ORAL) Take 1 tablet by mouth once daily. nitrofurantoin monohydrate and macrocrystal (MACROBID) 100 mg capsule Take 1 capsule by mouth twicedaily for 5 days. FAMILY HISTORY Problem Relation Age of Onset Diabetes Mother Heart disease Mother Diabetes Father Hearing Loss Maternal Grandmother Heart disease Maternal Grandmother other (Lung Cancer) Paternal Grandfather smoker other (Lung Cancer) Maternal Grandfather smoker No Known Problems Sister Hypertension Brother twin Diabetes Paternal Grandmother No Known Problems Son No Known Problems Son Social History Tobacco Use Smoking status: Never Smokeless tobacco: Never Vaping Use Vaping Use: Never used Substance Use Topics Alcohol use: Yes Comment: occasional Drug use: No ASSESSMENT/PLAN: 1. Frequent urination - ICD9: 788.41, ICD10: R35.0 - UA DIP, URINE (POC) - URINE CULTURE Macrobid twice a day for 5 days. Will adjust medication when culture comes back if necessary. Prescription instructions reviewed with patient as applicable. Potential red flag symptoms discussed with the patient. Reviewed appropriate action plan to take if red flag symptoms occur. Patient agreeable to treatment plan. Victoria Duarte APRN.PLATEN GRINDER documented in this encounterCleveland Clinic [facility]07-06-2022 Nurse Note* Bianca Addison RN - 10/11/2021 12:13 PM EDT Patient was referred by: Follow up Did patient bring outside records to appt today? : No Last mammogram on: 04/19/21 right Results: normal Patient current bra size: 40B Coping: It is normal to feel some distress when you have cancer. On a scale of 0-10 please indicatethe number that best describes your level of distress on the average over the past week. 0/10 Referred to social work: No Is the patient active on [employer] Yes Electronically Signed By: Bianca Addison RN In Department: BREAST C[facility] REVIEW OF PATIENT HISTORY: OB History T2 L2 SAB0 IAB0 Ectopic0 Multiple0 Live Births2 FAMILY HISTORY Problem Relation Age of Onset Diabetes Mother Heart disease Mother Diabetes Father Hearing Loss Maternal Grandmother Heart disease Maternal Grandmother other (Lung Cancer) Paternal Grandfather smoker other (Lung Cancer) Maternal Grandfather smoker No Known Problems Sister Hypertension Brother twin Diabetes Paternal Grandmother No Known Problems Son No Known Problems Son PAST MEDICAL HISTORY Diagnosis Date Breast CA (HCC) 09/2017 Breast cyst, left 2007 HTN (hypertension) Primary biliary cirrhosis (HCC) followed by Dr. Husam Hart in [place] PAST SURGICAL HISTORY Procedure Laterality Date ARTHRP ACETBLR/PROX FEM PROSTC AGRFT/ALGRFT Right 03/20/2019 Hip replacement, total ARTHRP KNE CONDYLE&PLATU MEDIAL&LAT COMPARTMENTS Left 02/2016 BIOPSY BREAST OPEN INCISIONAL Left 2007 [facility] benign pathology per patient BREAST RECONSTRUCTION Left 2018 fat graft/implant exchange DELIVERY ONLY 1996,1993 , low transverse MASTECTOMY HX Left 2017 AND with immediate reconstruction Social History Tobacco Use Smoking status: Never Smoker Smokeless tobacco: Never Used Vaping Use Vaping Use: Never used Substance Use Topics Alcohol use: Yes Comment: occasional Drug use: No documented in this encounterCleveland Clinic [facility]07-06-2022 History of Present illness Narrative* Eliz Bingham MD - 10/11/2021 12:00 PM EDT LAST SEEN AUGUST 2020 for routine follow up of breast cancer history Presents today for scheduled annual exam She is maintaining the anastrozole- hot flashes have improved; joint stiffness is the worst SE She has increased discomfort around her left implant HISTORY: Presented in 2018 with ER/SC positive, 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 She was recently (last 1-2 years) had increased imaging surveillance secondary to palpable findings- that have all been noted to be stable and c/w oil cysts- fat necrosis LAST IMAGING: Apr 2021 She most recently saw Dr. Carrasco Feb 2021 and is scheduled annually with him (next Jan 2022) PMH: She continues to follow with hepatology (in [place]) for known biliary cirrhosis Left - 2018 REVIEW OF SYSTEMS PAIN ASSESSMENT: Negative for pain, history of chronic pain, or current treatment for a chronic pain condition. 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 palpable areas 10o'c-12o'c that correspond to previously documented to represent FN. Her implant is obviously contracted - superiorly and laterally; it is relatively immobile in the fibrotic pocket. 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 ECHO stable. On lisinopril/HCTZ s/p LEFT hip replacement (DJD) remote history of traumatic left rib fracture PLAN: She will continue to follow annually with Dr. Carrasco as scheduled while maintained on Bi-annual Zometa and maintenance endocrine therapy. Additionally she will alternate her annual visits with a interval 6 months visit with [facility] medical breast. She will be due for her scheduled imaging Apr 2022- will coordinated an imaging and consult with medical breast clinic at that time. She is encouraged to call with any future breast concerns She plans on traveling to [place] to consult with Dr. Rodriguez regarding her implant contracture. I spent a total of 30 minutes on the date of the service which included preparing to see the patient, nxyp-kr-kpnd patient care, completing clinical documentation, obtaining and/or reviewing separately obtained history, performing a medically appropriate examination, counseling and educating the pat ient/family/caregiver, ordering medications, tests, or procedures, communicating with other HCPs (not separately reported), independently interpreting results (not separately reported), communicatingresults to the patient/family/caregiver and care coordination (not separately reported). Eliz Bingham MD documented in this encounterC[facility] Miscellaneous Notes* Telephone Encounter - Jacinta Rivas MD - 09/13/2021 12:14 AM EDT Canceled pended order since did not need over the weekend. * Telephone Encounter - Jacinta Rivas MD - 09/08/2021 7:48 PM EDT Called patient. No problems with oxygen level. Symptoms are not severe. Reviewed that had gotten back from [place] trip last Saturday. Several group members tested + for COVID so were left behind. [place] Since she seems to be getting better, okay to hold off on Paxlovid. If changes her mind if symptoms get worse, has until September 10 to get Paxlovid Nirmatrelvir/Ritonavir (Paxlovid) Eligibility and Patient Discussion [facility] Formulary Restriction Criteria: Adult outpatients 18 years and older with ALL of the following: [x] Patient has positive SARS-COV-2 viral test (PCR or antigen test) during current illness [x] Patient has symptoms for 5 days or less [x] Not requiring hospitalization at any time for management of COVID-19 [x] Not requiring supplemental oxygen or a change in baseline supplemental oxygen[x] Not utilized for pre-exposure or post-exposure prophylaxis for prevention of COVID-19 [] Patient does not have severe renal impairment (eGFR < 30 mL/min) or severe hepatic impairment(Child-Rice Class C) [x] Meeting patient criteria as below: [] Older age (age >/= 65 years) OR [x] 18 years and older with at least one of the following: [x] Obesity or being overweight (BMI > 30) [] [] Chronic kidney diseases with eGFR > 30 mL/min and not requiring dialysis [] Diabetes [x] Cardiovascular disease including hypertension [] COPD/other chronic respiratory disease [] Sickle cell disease [] Neurodevelopmental disorder (e.g. cerebral palsy) or other conditions that confer medical complexity (e.g. genetic or metabolic syndromes and severe congenital abnormalities) [] Medical related technological dependence (e.g. tracheostomy, gastrostomy, or positive pressure ventilation (not related to COVID-19)) OR [] 18 years and older with immunosuppressive disease or immunosuppressive therapy defined as: [] Immune-mediated inflammatory disease (rheumatoid arthritis, psoriatic arthritis, ankylosing spondylitis, psoriasis, systemic lupus erythematous, idiopathic inflammatory myositis, systemic sclerosis, primary systemic vasculitis, Sjogren s syndrome, inflammatory bowel disease) AND receiving at least one of the following: [] Prednisone (equivalent of > 10 mg daily at time of infusion) [] Rituximab [] 5-ASA derivatives (e.g., sulfasalazine, mesalamine) [] Solid Organ Transplant recipients [] Post-transplant AND on immunosuppression [] Cancer center patients AND at least one of the following: [] On treatment with anti-B cell monoclonal antibodies (e.g., Rituximab, Obinutuzumab, Ofatumumab) [] On treatment with high-intensity chemotherapy regimen [] Myeloablative hematopoietic stem cell transplant recipients within 6 months of transplant or on systemic therapy for ofhkz-akmjii-tvcx disease [] CAR T-cell/other cellular therapy recipients within 6 months of infusion [] Hypogammaglobulinemia due to cancer/hematologic disease or its treatment [] Primary immunodeficiency disorder (including common variable immuno immunodeficiency disorder and selective antibody deficiency disorder) Criteria above are met: Yes Date of Positive Test:09/07/21 Date of Symptom Onset: 09/05/21 Patient received COVID vaccine: Yes -Date(s) of vaccine: 06/15/20, 07/13/20, 03/22/21 Drug-Drug interactions reviewed: Yes. No drug interactions were identified. I have discussed the use of the investigational therapeutic, nirmatrelvir/ritonavir, for the treatment of mild to moderate COVID-19 and its use under Emergency Use Authorization with the patient. The patient was informed that nirmatrelvir/ritonavir is not an FDA approved drug and that it is authorized for use under this Emergency Use Authorization. The patient was also informed of the significant known benefits and potential risks of nirmatrelvir/ritonavir, and the extent to which such potential risks and benefits are unknown. The patient was informed that there is mandatory reporting of all medication errors and serious adverse events potentially related to nirmatrelvir/ritonavir treatment within 7 calendar days from the onset of the event and that events up to 28 days after completion of therapy need to be reported. The discussion included alternatives to receiving nirmatrelvir/rit onavir, including clinical trials, and potential the risks and benefits of those alternatives. The patient was provided electronically with the Fact Sheet for Patients, Parents and Caregivers. The patient was also instructed that in addition to the treatment with nirmatrelvir/ritonavir, he/she should continue to self-isolate and use infection control measures (e.g., wear mask, isolate, social distance, avoid sharing personal items, clean and disinfect high touch surfaces, and frequent h andwashing) according to CDC guidelines. The patient stated understanding and gave verbal consent to proceeding with nirmatrelvir/ritonavir treatment. I pended the order and answered the questions in case patient called in the next couple days and decide wanted the Paxlovid. I can update the date of approval and send in the RX if person covering over the weekend prefers I place the order. Jacinta Rivas MD September 08, 2021 8:02 PM * Telephone Encounter - Odette Martinez LPN - 09/08/2021 4:46 PM EDT Called pt back to review she notes symptoms started 09/05/21. Runny nose. They thought allergy symptoms. Tested positive 09/07/21. She is using OCT mucinex with effects. Did review antiviral needed to be started with in 5 days of symptoms. * Telephone Encounter - Saadia Zepeda LPN - 09/08/2021 11:12 AM EDT Pt. tested positive for Covid yesterday. She has slight Chest congestion, headache, cough. She has scarring in lungs from previous breast Cancer Treatment. Please advise. She uses [facility]. Saadia Zepeda LPN documented in this encounterC[facility]06-04-[facility] Miscellaneous Notes* Telephone Encounter - Jacinta Rivas MD - 09/09/2021 12:27 PM EDT Addressed. See telephone encounter documented in this encounterC[facility]06-[facility]-2022 Miscellaneous Notes* Telephone Encounter - Jacinta Rivas MD - 09/08/2021 8:07 PM EDT I pended Paxlovid orders in other encounter so can fill easily if needed. documented in this encounterC[facility]06-[facility]-2022 Instructions* Patient Instructions* Jacinta Rivas MD - 09/08/2021 8:04 PM EDT FACT SHEET FOR PATIENTS, PARENTS, AND CAREGIVERS EMERGENCY USE AUTHORIZATION (EUA) OF PAXLOVID FOR CORONAVIRUS DISEASE 2019 (COVID-19) You are being given this Fact Sheet because your healthcare provider believes it is necessary to provide you with PAXLOVID for the treatment of mowp-vy-ttbrxkcy coronavirus disease (COVID-19) caused by the SARS-CoV-2 virus. This Fact Sheet contains information to help you understand the risks and benefits of taking the PAXLOVID you have received or may receive. The U.S. Food and Drug Administration (FDA) has issued an Emergency Use Authorization (EUA) to makePAXLOVID available during the COVID-19 pandemic (for more details about an EUA please see What is an Emergency Use Authorization? at the end of this document). PAXLOVID is not an FDA-approved medicine in the [place]. Read this Fact Sheet for information about PAXLOVID. Talk to your healthcareprovider about your options or if you have any questions. It is your choice to take PAXLOVID. What is COVID-19? COVID-19 is caused by a virus called a coronavirus. You can get COVID-19 through close contact withanother person who has the virus. COVID-19 illnesses have ranged from very xlaz-ml-fqeqct, including illness resulting in . While information so far suggests that most COVID-19 illness is mild, serious illness can happen and maycause some of your other medical conditions to become worse. Older people and people of all ages with severe, long lasting (chronic) medical conditions like heart disease, lung disease, and diabetes,for example seem to be at higher risk of being hospitalized for COVID-19. What is PAXLOVID? PAXLOVID is an investigational medicine used to treat iwkd-bp-saktyytb COVID-19 in adults and children [12 years of age and older weighing at least 88 pounds (40 kg)] with positive results of direct SARS-CoV-2 viral testing, and who are at high risk for progression to severe COVID-19, including hospitalization or . PAXLOVID is investigational because it is still being studied. There is limited information about the safety and effectiveness of using PAXLOVID to treat people with ywol-qi-cnnygdgb COVID-19. The FDA has authorized the emergency use of PAXLOVID for the treatment of rwmj-vu-ncqadcdy COVID-19in adults and children [12 years of age and older weighing at least 88 pounds (40 kg)] with a positive test for the virus that causes COVID-19, and who are at high risk for progression to severe COVID-19, including hospitalization or , under an EUA. 1 Revised: 23 June 2021 What should I tell my healthcare provider before I take PAXLOVID? Tell your healthcare provider if you: Have any allergies Have liver or kidney disease Are or plan to become Are a child Have any serious illnesses Tell your healthcare provider about all the medicines you take, including prescription and blmg-evz-nfecxff medicines, vitamins, and herbal supplements. Some medicines may interact with PAXLOVID and may cause serious side effects. Keep a list of your medicines to show your healthcare provider and pharmacist when you get a new medicine. You can ask your healthcare provider or pharmacist for a list of medicines that interact with PAXLOVID. Do not start taking a new medicine without telling your healthcare provider. Your healthcare provider can tell you if it is safe to take PAXLOVID with other medicines. Tell your healthcare provider if you are taking combined hormonal contraceptive. PAXLOVID may affect how your control pills work. Females who are able to become should use another effective alternative form of contraception or an additional barrier method of contraception. Talk to your healthcare provider if you have any questions about contraceptive methods thatmight be right for you. How do I take PAXLOVID? PAXLOVID consists of 2 medicines: nirmatrelvir and ritonavir. Take 2 pink tablets of nirmatrelvir with 1 white tablet of ritonavir by mouth 2 times each day (in the morning and in the evening) for 5 days. For each dose, take all 3 tablets at the same time. If you have kidney disease, talk to your healthcare provider. You may need a different dose. Swallow the tablets whole. Do not chew, break, or crush the tablets. Take PAXLOVID with or without food. Do not stop taking PAXLOVID without talking to your healthcare provider, even if you feel better. If you miss a dose of PAXLOVID within 8 hours of the time it is usually taken, take it as soon as you remember. If you miss a dose by more than 8 hours, skip the missed dose and take the next dose atyour regular time. Do not take 2 doses of PAXLOVID at the same time. If you take too much PAXLOVID, call your healthcare provider or go to the nearest hospital emergency room right away. If you are taking a ritonavir-or cobicistat-containing medicine to treat hepatitis C or Human Immunodeficiency Virus (HIV), you should continue to take your medicine as prescribed by your healthcare provider. Talk to your healthcare provider if you do not feel better or if you feel worse after 5 days. Who should generally not take PAXLOVID? Do not take PAXLOVID if: You are allergic to nirmatrelvir, ritonavir, or any of the ingredients in PAXLOVID You are taking any of the following medicines: Alfuzosin Pethidine, propoxyphene Ranolazine Amiodarone, dronedarone, flecainide, propafenone, quinidine Colchicine Lurasidone, pimozide, clozapine Dihydroergotamine, ergotamine, methylergonovine Lovastatin, simvastatin Sildenafil (Revatio ) for pulmonary arterial hypertension (PAH) Triazolam, oral midazolam Apalutamide Carbamazepine, phenobarbital, phenytoin Rifampin Kenny s Wort (hypericum perforatum) Taking PAXLOVID with these medicines may cause serious or life-threatening side effects or affect how PAXLOVID works. These are not the only medicines that may cause serious side effects if taken with PAXLOVID. PAXLOVID may increase or decrease the levels of multiple other medicines. It is very important to tell your healthcare provider about all of the medicines you are taking because additional laboratory tests or changes in the dose of your other medicines may be necessary while you are taking PAXLOVID. Your healthcare provider may also tell you about specific symptoms to watch out for that may indicate that you need to stop or decrease the dose of some of your other medicines. What are the important possible side effects of PAXLOVID? Possible side effects of PAXLOVID are: Allergic Reactions. Allergic reactions can happen in people taking PAXLOVID, even after only 1 dose. Stop taking PAXLOVID and call your healthcare provider right away if you get any of the following symptoms of an allergic reaction: hives trouble swallowing or breathing swelling of the mouth, lips, or face throat tightness hoarseness skin rash Liver Problems. Tell your healthcare provider right away if you have any of these signs and symptoms of liver problems: loss of appetite, yellowing of your skin and the whites of eyes (jaundice), dark-colored urine, pale colored stools and itchy skin, stomach area (abdominal) pain. Resistance to HIV Medicines. If you have untreated HIV infection, PAXLOVID may lead to some HIV medicines not working as well in the future. Other possible side effects include: altered sense of taste diarrhea high blood pressure muscle aches These are not all the possible side effects of PAXLOVID. Not many people have taken PAXLOVID. Serious and unexpected side effects may happen. PAXLOVID is still being studied, so it is possible that all of the risks are not known at this time. What other treatment choices are there? Veklury (remdesivir) is FDA-approved for the treatment of klkh-ks-yhmahzjz COVID-19 in certain adults and children. Talk with your doctor to see if Veklury is appropriate for you. Like PAXLOVID, FDA may also allow for the emergency use of other medicines to treat people with COVID-19. Go to https://www.fda.gov/winqjefgr-xrdqeeiivypx-quecfpnruui/mce-ucidj-vyhdoblusf-and- policy-framework/vlzewwjwg-bfk-cwrxocilvmjhr for information on the emergency use of other medicines that are authorized by FDA to treat people with COVID-19. Your healthcare provider may talk with you aboutclinical trials for which you may be eligible. It is your choice to be treated or not to be treated with PAXLOVID. Should you decide not to receive it or for your child not to receive it, it will not change your standard medical care. What if I am or ? There is x ray technologist treating women or mothers with PAXLOVID. For a motherand unborn baby, the benefit of taking PAXLOVID may be greater than the risk from the treatment. Ifyou are , discuss your options and specific situation with your healthcare provider. It is recommended that you use effective barrier contraception or do not have sexual activity whiletaking PAXLOVID. If you are , discuss your options and specific situation with your healthcare provider. How do I report side effects with PAXLOVID? Contact your healthcare provider if you have any side effects that bother you or do not go away. Report side effects to FDA MedWatch at www.fda.gov/medwatch or call 8-213-FRW7922 or you can reportside effects to [employer]. at the contact information provided below. Website Fax number Telephone number WebNotes How should I store PAXLOVID? Store PAXLOVID tablets at room temperature, between 68?F to 77?F (20?C to 25?C). How can I learn more about COVID-19? Ask your healthcare provider. Visit https://www.cdc.gov/COVID19. Contact your local or state public health department. What is an Emergency Use Authorization (EUA)? The [place] FDA has made PAXLOVID available under an emergency access mechanism called an Emergency Use Authorization (EUA). The EUA is supported by a Range Manager of Health and Human Service (HHS) declaration that circumstances exist to justify the emergency use of drugs and biological productsduring the COVID-19 pandemic. PAXLOVID for the treatment of dkem-kg-txvdzzuf COVID-19 in adults and children [12 years of age andolder weighing at least 88 pounds (40 kg)] with positive results of direct SARS-CoV-2 viral testing, and who are at high risk for progression to severe COVID-19, including hospitalization or , has not undergone the same type of review as an FDA-approved product. In issuing an EUA under the COVID-19 public health emergency, the FDA has determined, among other things, that based on the total amount of scientific evidence available including data from adequate and well-controlled clinical trials, if available, it is reasonable to believe that the product may be effective for diagnosing, treating, or preventing COVID-19, or a serious or life-threatening disease or condition caused by COVID-19; that the known and potential benefits of the product, when used to diagnose, treat, or prevent such disease or condition, outweigh the known and potential risks of such product; and that there are no adequate, approved, and available alternatives. All of these criteria must be met to allow for the product to be used in the treatment of patients during the COVID-19 pandemic. The EUA for PAXLOVID is in effect for the duration of the COVID-19 declaration justifying emergency use of this product, unless terminated or revoked (after which the products may no longer be used under the EUA). Additional Information For general questions, visit the website or call the telephone number provided below. Website Telephone number [email or web address] (9-371-U65-PKIA) You can also go to [email or web address] or call for more information. Pfizer Distributed by [employer] [place] [address] [id number] Revised: 23 June 2021 documented in this encounterC[facility]05-04-[facility]22 History of Present illness Narrative* Serenity Godwin RD - 08/09/2021 1:52 PM EDTSummary: Nutrition counseling Nutrition Therapy Initial Assessment RECOMMENDED MALNUTRITION DIAGNOSIS: NO MALNUTRITION IDENTIFIED Reason for visit: Nutrition Counseling Nutrition Diagnosis: Altered nutrient needs related to hyperglycemia as evidenced by lab values. Nutrition Intervention: - aim for 5-6 small/frequent meals - incorporate lean sources of protein/plant based proteins at meals - Stay well hydrated - sip on fluids throughout the day (60 oz). - Keep food record - Balance high fiber carbohydrates with protein foods. - 45g carb per meal Educational materials provided: Nutrition Basics for People with Diabetes Nutrition Assessment Diet History (24hr recall): 9am Breakfast - bowl of cereal cheerios// pc toast wheat, banana// hb egg; water Snack - Lunch - garden salad, chicken, hummus, carrots, feta, hb egg, vinegar based or ranch dressing// turkey sandwich, singaporean on wheat mustard// soup// fruit Snack - Dinner - homemade; salmon once per week; chicken and rice; hamburger; pasta every two weeks Snack - popcorn, pretzels Beverages - water, occasional cola (3 per week) Alcohol- rarely Vitamins/Supplements - BG 133 fasting. Occasional diarrhea - possibly after high fat meals r/t primary biliary cirrhosis Anthropometrics: Height: Last 1 Encounter Ht Readings: Date: Ht: 08/02/2021 165.7 cm (5' 5.25) Current weight: Last 10 Encounter Wt Readings: Date: Wt: 08/02/2021 90.3 kg (199 lb) 02/15/2021 89.4 kg (197 lb) 02/13/2021 89 kg (196 lb 3.2 oz) 01/03/2021 90.5 kg (199 lb 9.6 oz) 12/29/2020 88.9 kg (196 lb) 06/01/2020 89.6 kg (197 lb 8 oz) 03/01/2020 88 kg (194 lb) 02/12/2020 87.6 kg (193 lb 3.2 oz) 01/27/2020 86.6 kg (191 lb) 09/10/2019 89.1 kg (196 lb 8 oz) Estimated body mass index is 32.86 kg/m as calculated from the following: Height as of 08/02/21: 165.7 cm (5' 5.25). Weight as of 08/02/21: 90.3 kg (199 lb). Resting Metabolic Rate: 1471 Weight Loss: none Estimated Needs: Dosing Weight: 90.3 kg Estimated kilocalorie needs: 0013-0053 kilocalories determined by 15-18 kcal/kg Estimated protein needs: 90 grams determined by 1.0 g/kg Dosing weight Estimated fluid needs: 1800 milliliters based on 1 mL per kcal Readiness to Learn Cognitive ability: Alert and oriented Motivation to learn: Eager Family support: Unable to assess - Family not present Instruction provided to: Patient Patient learns best by: Multiple Methods Factors affecting learning: None Physical limitations affecting learning: None NUTRITION FOCUSED PHYSICAL EXAM: Subcutaneous Fat Loss Orbital No fat loss Triceps No fat loss Mid-axillary at the iliac crest Unable to determine at this time Muscle Loss Locations: Temporalis No muscle loss Pectoralis No muscle loss Deltoids No muscle loss Interosseous No muscle loss Latissimus dorsi, trapezius No muscle loss Quadriceps No muscle loss Gastrocnemius No muscle loss Potential micronutrient deficiency revealed in: No deficiency identified Edema: No Ascites: No Assessment of Functional Status: No functional impairment, normal with no limitations Potential Signs of Inflammation: chronic condition Allergies: Patient has no known allergies. Medications: Current Outpatient Medications Medication Sig Dispense Refill traZODone (DESYREL) 50 mg tablet Take 1 tablet by mouth daily at bedtime. 90 tablet 3 PARoxetine (PAXIL) 10 mg tablet Take 1 tablet by mouth once daily. 90 tablet 3 lisinopril-hydroCHLOROthiazide (PRINZIDE,ZESTORETIC) 20-12.5 mg per tablet Take 1 tablet by mouth once daily. 90 tablet 3 anastrozole (ARIMIDEX) 1 mg tablet Take 1 tablet by mouth once daily. 90 tablet 3 albuterol HFA (VENTOLIN HFA) 90 mcg/actuation inhaler Inhale 2 Puffs as instructed every 4 hours asneeded for wheezing/shortness of breath. 18 g 0 meloxicam (MOBIC) 15 mg tablet Take 15 mg by mouth once daily as needed. acetaminophen (TYLENOL EXTRA STRENGTH) 500 mg tablet Take 500 mg by mouth every 8 hours as needed for Pain. ascorbic acid, vitamin C, (VITAMIN C) 500 mg tablet Take 500 mg by mouth once daily. alpha tocopheryl acetate (VITAMIN E) 400 unit capsule Take 400 Units by mouth once daily. aspirin, enteric coated (ASPIRIN, ENTERIC COATED) 81 mg EC tablet Take 1 tablet by mouth once daily. cyanocobalamin (VITAMIN B-12) 1,000 mcg tab Take 1,000 mcg by mouth once daily. VITAMIN D 50,000 unit capsule 1 capsule one time a week. Ursodiol 500 mg tablet 1.5 tablets twice daily. CALCIUM CARBONATE (CALCIUM 500 ORAL) Take 1 tablet by mouth once daily. No current facility-administered medications for this visit. (date of last encounter ): Nutrition Monitoring & Evaluation: PO intake Supplement tolerance Wt status Biochemical Markers Skin integrity Plan of care Patient met goal(s): Yes Need for Follow up: Will follow up in summer Referred/Supervised by: Dr. Carrasco Thank you for allowing me to participate in the care of this pt. MNT Billing Type: Initial Assess/15 min 3 units Signed by: Serenity Godwin RD,LD documented [facility] History of Present illness Narrative* Serena Carrasco, DO - 08/02/2021 9:22 AM EDT Diagnosis: 1) Breast cancer. HPI: The patient is a 61-year-old postmenopausal female who has a past medical history significant for hypertension and primary biliary cirrhosis. She is seen by her mems process engineer approximately once ayear and she has had stable findings. Most recent liver chemistries performed at [facility] on 01/10/2017 showed a total bilirubin of 0.3 mg/dL with a direct bilirubin of 0.09 mg/dL. The AST was 19 and the ALT was 23. Alkaline phosphatase was 95. CBC at that time was normal with a white count of 8900. No differential. Hemoglobin 12.2 g/dL platelet count 237,000. Coagulation studiesshowed a normal INR 1.0 with a PT of 13.0 seconds. Evidently she was on a trip to [place] about 2 1/2 years ago when she developed pleuritic right-sided chest pain. She presented to local ER there. She's not sure what radiographic studies weredone but she was told that there was a concern she had lung cancer and she was to follow-up when she got back home. Over the last 2 years she's had a number of radiographic studies including CT of the chest as well as PET scan last year that showed no evidence of malignancy. She's had pain under left breast that was attributed to rib fracture with healing. Over the last year there's been a lump in lower left breast thought associated to healing underlying rib fracture. Core needle biopsy performed on 03/29/2017: Left breast, core biopsy: Invasive ductal carcinoma, nuclear grade 2 (1.3 cm in greatest length). ER (clone [id number]) >95%, strong SC (clone 16/1E2) >95%, strong Her-2Neu (clone CB11) 0 There was a spiculated mass at the lower outer left breast measuring 2.7 x 1.8 x 3.5 cm with central clip artifact consistent with the biopsy-proven malignancy. It was in the posterior depth but there was no evidence of chest wall involvement. There were no other abnormal areas of enhancement within the left breast. There were 2 abnormally thickened enhancing lymph nodes high in the left axilla that were suspicious for axillary node metastases. There are also several rounded nodes in the left high subpectoral region with the largest measuring 7 mm in short axis. These were noted to be suspicious. A possible 4 mm in short axis left internal mammary node was also appreciated. Full staging workup including CT scans of the chest, abdomen and pelvis as well as brain MRI and whole-body bone scan shows some mild activity in the distal femur on the right. Plain films showed degenerative changes without any osteoblastic or osteolytic activity. The CT scans disclosed 2 hypodense lesions in the liver that on MRI had signal characteristics consistent with hemangioma. Brain MRI was normal. Previous therapy: 1) Neoadjuvant AC followed by Taxol. 2) Underwent a left nipple sparing mastectomy with left axillary lymph node dissection and left armreverse axillary mapping on 10/08/2017. This was done in conjunction with a implant and acellular dermal matrix with a lymphatico-venous bypass to the left axilla. 3) Adjuvant radiation. Completed 01/02/2018. Pathology from 10/08/2017 surgery: 1. Left axillary contents, excision (A) - Four of five lymph nodes, positive for metastatic carcinoma (4/5) with treatment effect. - Extranodal extension is present. - Biopsy clips and changes consistent with prior biopsy sites. 2. Left breast, mastectomy (B) - Fibrous tumor bed with residual invasive ductal carcinoma, histologic grade 1. - Ductal carcinoma in situ, intermediate nuclear grade, solid type. - Biopsy clip and changes consistent with prior biopsy site. - Please see synoptic report. SYNOPTIC REPORT OF [place] PATHOLOGIC FINDINGS LEFT BREAST: BREAST INVASIVE CARCINOMA WORKSHEET Part: A and B Procedure: Total mastectomy (including nipple-sparing and skin-sparing mastectomy) Specimen Laterality: Left Tumor size: Size of largest invasive carcinoma: Greatest dimension of largest focus of invasion >1 mm: 9 mm Tumor Focality: Single focus of invasive carcinoma Histologic Type of Invasive Carcinoma: Invasive carcinoma of no special type (ductal, not otherwise specified) Histologic Grade: Glandular (Acinar) / Tubular Differentiation: Score 2 Nuclear Pleomorphism: Score 2 Mitotic Rate: Score 1 (<=3 mitosis per mm2) Overall Grade: Grade I Ductal Carcinoma In Situ: DCIS is present in specimen DCIS Nuclear Grade: Grade II (intermediate) Tumor Extension: Skin: Not applicable Nipple: Not applicable Skeletal muscle: Not applicable Invasive Carcinoma Margins: Margins uninvolved by invasive carcinoma Distance from closest margin: 2 mm Closest margin: Inferior radial DCIS Margins: Margins uninvolved by DCIS Distance from closest margin: 5 mm Closest margin: Inferior radial Lymph Nodes: Involved by tumor cells Number of lymph nodes with macrometastases (>2 mm): 4 Number of lymph nodes with micrometastases (>0.2 mm to 2 mm and/or >200 cells): 0 Number of lymph nodes with isolated tumor cells (<= 0.2 mm and <= 200 cells): 0 Size of largest metastatic deposit: 8 mm Extranodal extension present: 1.5 mm Number of lymph nodes examined: 5 Treatment Effect: Treatment effect in the breast Treatment effect in the lymph nodes Probable or definite response to presurgical therapy in the invasive carcinoma Probable or definite response to presurgical therapy in metastatic carcinoma Lymph-Vascular Invasion: Present Pathologic Stage Classification (pTNM,AJCC 8th ed) TNM Descriptor(s): y (post- treatment) Primary Tumor (Invasive Carcinoma) (pT): pT1b Regional Lymph Nodes (pN): Modifier: Not applicable Category (pN): pN2a Distant metastasis: Distant Metastasis (pM) Not applicable/Not confirmed pathologically in this case Estrogen & progesterone receptors: Previously performed (HER2) ERBB2 Status: 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 2) Radiation to left chest wall/axilla and supraclavicular area completed 01/02/2018. 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 Current therapy: 1[facility] Presents for ongoing oncologic management. Interim history: Paxil still helping significantly with nocturnal hot flashes. Sleeping much better. Stable numbness of the fingertips and some stiffness and pain of the carpometacarpal joints of the thumbs. No symptoms of cardiomyopathy including chest pain/pressure, shortness of breath at rest or with exertion, lower extremity swelling/edema, PND or orthopnea. PMH, medications and allergies personally reviewed by me today. Any changes documented in appropriate section. ROS: Constitutional: Denies episodes of fever and night sweats. Neuro: Denies YOUSIF, vertigo, dizziness and imbalance. HEENT: No recent change in voice, vision or hearing. Resp: Denies cough, wheeze and hemoptysis. CVS: See above. GI: Denies dysgeusia. Denies symptoms of stomatitis. Denies dysphagia and odynophagia. Denies reflux. : Denies dysuria or gross hematuria. No symptoms of bladder outlet obstruction. Endo: Denies polyuria and polydipsia. Denies heat and cold intolerance. Musculoskeletal: See above. Derm: Denies rash. Denies jaundice and diffuse pruritis. Heme: Denies unusual bleeding and unexplained bruising. Psych: Normal mood. PHYSICAL EXAM: Vitals: Blood pressure 111/75, pulse 86, temperature 37.1 C (98.7 F), temperature source Temporal, height 165.7 cm (5' 5.25), weight 90.3 kg (199 lb). Well-appearing and in no acute distress. EYES: Sclerae are anicteric bilaterally. NECK: Supple. Tender without mass between SCM and thyroid cartilage left. LYMPHATIC: There is no palpable cervical or supraclavicular adenopathy. No axillary adenopathy. RESPIRATORY: Inspiratory breath sounds are of normal intensity in all [place]. No rales, wheezes or rhonchi. CARDIOVASCULAR: Rhythm is regular. 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 Left sided implant remains contracted. Lessl BB sized palpable nodules along the superior margin of the breast implant. Right breast--No mass or nodule. ABDOMEN: The abdomen is nondistended. No organomegaly. No tenderness. Extremities: No swelling or edema. SKIN: No jaundice or rash. NEUROLOGIC: spa director/finance II-XII are grossly intact. No focal motor weakness. MUSCULOSKELETAL: No muscle wasting. No joint swelling of the hands. 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 -KPS is 100%. -Overall tolerating anastrozole well with the exception of hot flashes and mild musculoskeletal side effect. Paxil helping a great deal with hot flashes. Plan: -Due for right mammogram 04/2022. -Continue q 6 month Zometa. -Continue anastrozole. -Continue Paxil 10 mg at at bedtime. -OV in 6 months. (I42.7, T45.1X5A) Chemotherapy-induced cardiomyopathy (HCC) Assessment: -Patient had otherwise unexplained persistent tachycardia. Echo showed normal EF but I reviewed with cardiology--there was a 10 percent change in the strain pattern suggestive of early cardiomyopathy. -Changed back to lisinopril/HCTZ which she had been on prior to diagnosis breast cancer. -Blood pressure continues under excellent control. Plan: -Continue lisinopril/HCTZ. -Follow up with PCP for general health maintenance management. Portions of this documentation were copied and pasted from previous office visit notes in order to provide a cohesive continuity of the history. The note has been reviewed and edited and updated as necessary. Serena Carrasco DO documented in this encounterC[facility]04-27-2022 History of Present illness Narrative* Chantale Bundy RN - 08/02/2021 9:00 AM EDT IRB#[id number]. LORI 1117: A Randomized, Open-Label, Phase 3 Study of Abemaciclib Combined with Standard Adjuvant Endocrine Therapy versus Standard Adjuvant Endocrine Therapy Alone in Patients with High Risk, Node Positive, Early Stage, Hormone Receptor Positive, Human Epidermal Receptor 2 Negative, Breast Cancer Informed Consent signed on 01/16/2018 prior to any study related procedures not deemed SOC. Randomized on: 01/24/18. ARM: Arm B: Endocrine only. Study ID: [id number] Patient is here for Q6 month follow-up visit (V804). Physical exam, toxicities, labs and medications reviewed with Dr. Carrasco. Patient continues to meet protocol requirements for anastrozole treatment and clinical trial follow-up. Patient prior neck tenderness gone and improved. ECOG Score: 0- Fully active, able to carry on all pre-disease performance w/o restriction Clinical Trial Draw: Not required at this time QOLs: Not required at this time 08/02/2021 Weight 90.3 kg (199 lb) Height 165.7 cm (5' 5.25) BSA 2.04 BMI 32.86 Temp 37.1 C (98.7 F) Pulse 86 BP 111/75 Current Medications reviewed today Albuterol HFA (Ventolin HFA) 90 mcg/acuation inhaler PRN Inhale 2 puffs as instructed every 4 hoursPRN For wheezing/SOB 02/13/2021 Lisinopril-Hydrochlorothiazide (Prinzide, Zestoretic) 20-12.5 mg tablet 1 tablet by mouth daily Forhypertension Paroxetine (Paxil) 10 mg tablet 1 tablet by mouth daily (Started 08/31/2020) For hot flashes Anastrozole (Arimidex) 1 mg tablet 1 tablet by mouth daily For HR+ Breast Cancer Meloxicam (Mobic) 15 mg tablet Take 1 tablet by mouth daily as needed For pain Acetaminophen (Tylenol, Extra Strength) 500 mg tablet Take 1 tablet by mouth every 8 hours PRN For pain 03/22/2019 Ascorbic Acid (Vitamin C) 500 mg tablet Take 1 tablet by mouth daily Supplement Alpha Tocopheryl Acetate (Vitamin E) 400 unit capsule Take 1 capsule by mouth daily Supplement Enteric Coated Aspirin (ASA) 81 mg tablet Take 1 tablet by mouth daily For VTE/Stroke prevention 10/08/2017 Cyanocobalamin (Vit B12) 1000 MG tablet Take 1 tablet by mouth daily Supplement Vitamin D 50,000 unit capsule Take 1 capsule by mouth once weekly Supplement 03/25/2017 Ursodiol 500 mg tablet Take 1.5 tablets by mouth twice daily 03/25/2017 Calcium Carbonate 500 mg tablet Take 1 tablet by mouth daily Supplement 03/25/2017 Zoledronic Acid - Mannitol - 0.9 MaCl 4mg iv Piggyback (Zometa) One infusion (4 mg- 100 mL) every 6months Bone modifying agent (due to AI therapy) Trazadone (Deseyreyl) 50mg Tablet Take 1 tablet by mouth daily and bedtime Insomnia 05/29/2021 Patient reported compliance with anastrozole. Current CTCAE V5 Toxicities Pain (left foot): Grade 2. Start Date: Approximately Feb 2020. Unrelated to anastrozole, related toarthritis. Drugs to Treat: Mobic 15 mg PRN. Action Required: None. Outcome: Ongoing. Hot flashes. Grade 1. Start Date: approximately 02/25/2018. Related to anastrozole. Drugs to Teat: Paxil. Action Required: None. Outcome: Improving and ongoing. Peripheral Sensory Neuropathy (tips of thumbs). Grade 1. PRIOR TO STUDY.Start Date: approximately July 2017. Drugs to Treat: None. Action Required: None. Outcome: Ongoing/Stable. Insomnia. Grade 1. Start Date: Approximately 08/31/2020. Unrelated to anastrozole side effects (hot flashes). Drugs to Treat: Trazadone. Action Required: None. Outcome: Ongoing and improving. Hyperglycemia: Grade 1. Start Date: Prior to study but noted under CTCAE 08/02/2021. Drugs to Treat: None. Action Required:None Outcome: Ongoing Back pain (stiffness): Grade 1. Start Date: 08/02/2021. Drugs to Treat: Mobic and Tylenol. Action Required:None Outcome: Ongoing Not gradable per CTCAE -Elevated BUN. PRIOR TO STUDY. Unrelated to anastrozole Menopausal Status: Post Contraception: NA LMP: 09/06/2009 Patient aware that next visit per protocol is in 6 months. Patient has contact information for Dr. Carrasco's office/Research Team for any questions/concerns in the interm. Chantale Bundy, Research Nurse, BSN, RN [phone] documented in this encounterC[facility]11-08-2021 History of Present illness Narrative* Helen Randall RT(R) - 02/13/2021 4:20 PM EST Radiology Service Progress Note PATIENT NAME: Pat Sorto DATE OF SERVICE: February 13, 2021 TIME: 4:17 PM PATIENT IDENTITY VERIFICATION COMPLETED USING TWO (2) IDENTIFIERS: Name and Date of confirmedby patient verbally. FALL SCREENING: Has the patient had 2 falls in the last year or 1 fall with injury or currently using an Ambulatory Assistive Device (Walker, Cane, Wheelchair, Crutches, etc.)? No PATIENT GENDER DATA: Female. status: : No status: NO. PATIENT RELEVANT IMPLANT DATA REVIEWED: Yes RADIOLOGY DEPARTMENT: General X-ray: Exam(s) Completed: Chest X-Ray PERIPHERAL IV DATA: Not applicable SIGNED BY: RT Rebecca(R) February 13, 2021 4:17 PM documented in this encounterC[facility]09-28-2021 History of Present illness Narrative* Hleen Fay RT(R) - 01/03/2021 3:50 PM EDT Radiology Service Progress Note PATIENT NAME: Pat Sorto DATE OF SERVICE: January 03, 2021 TIME: 3:41 PM PATIENT IDENTITY VERIFICATION COMPLETED USING TWO (2) IDENTIFIERS: Name and Date of confirmedby patient verbally. FALL SCREENING: Has the patient had 2 falls in the last year or 1 fall with injury or currently using an Ambulatory Assistive Device (Walker, Cane, Wheelchair, Crutches, etc.)? No PATIENT GENDER DATA: Female. status: : No status: NO. PATIENT RELEVANT IMPLANT DATA REVIEWED: Not Applicable RADIOLOGY DEPARTMENT: General X-ray: Exam(s) Completed: Chest X-Ray PERIPHERAL IV DATA: Not applicable SIGNED BY: RT Jeovanny(R) January 03, 2021 3:41 PM [facility] Diagnosis Malignant neoplasm of left breast in female, estrogen receptor positive, unspecified site of breast (HCC)- Primary Nontoxic single thyroid nodule Nontoxic uninodular goiter [facility]* Diagnosis Malignant neoplasm of left breast in female, estrogen receptor positive, unspecified site of breast (HCC)- Primary [facility]* Diagnosis Examination of participant in clinical trial- Primary [facility]* Diagnosis Malignant neoplasm of left breast in female, estrogen receptor positive, unspecified site of breast (HCC)- Primary [facility]* Diagnosis Primary biliary cirrhosis (HCC)- Primary Biliary cirrhosis [facility]* Diagnosis COVID-19 virus infection- Primary [facility]* Diagnosis Malignant neoplasm of lower-outer quadrant of left breast of female, estrogen receptor positive (HCC)- Primary documented [facility] noteNo assessment information availableWSumma Health Work Phone: Evaluation note* Diagnosis Frequent urination- Primary Urinary frequency [facility]* Diagnosis Routine medical exam- Primary Routine general medical examination at a health care facility Elevated glucose Other abnormal glucose Acute cystitis without hematuria Acute cystitis Encounter for immunization Need for other specified prophylactic vaccination against single bacterial disease [facility]* Diagnosis It band syndrome, right- Primary Status post total replacement of right hip Primary osteoarthritis of right knee Primary localized osteoarthrosis, lower leg [facility]* Diagnosis Malignant neoplasm of lower-outer quadrant of left breast of female, estrogen receptor positive (HCC)- Primary [facility]* Diagnosis Insomnia, unspecified type [facility]* Diagnosis Malignant neoplasm of left breast in female, estrogen receptor positive, unspecified site of breast (HCC)- Primary [facility]* Diagnosis Malignant neoplasm of lower-outer quadrant of left breast of female, estrogen receptor positive (HCC)- Primary [facility]* Diagnosis Malignant neoplasm of left breast in female, estrogen receptor positive, unspecified site of breast (HCC)- [facility] Abnormal [facility] of breast- Primary Other (abnormal) findings on radiological examination of breast [facility] Malignant neoplasm of lower-outer quadrant of left breast of female, estrogen receptor positive (HCC)- Primary [facility] Diagnosis Malignant neoplasm of left breast in female, estrogen receptor positive, unspecified site of breast (HCC)- Primary 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) [facility] Diagnosis Malignant neoplasm of overlapping sites of left breast in female, estrogen receptor positive (HCC) 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) [facility] Diagnosis Malignant neoplasm of lower-outer quadrant of left breast of female, estrogen receptor positive (HCC)- Primary [facility]* Diagnosis Adenopathy- Primary Enlargement of lymph nodes Adenopathy Enlargement of lymph nodes [facility] Diagnosis Pre-op evaluation- Primary Preoperative examination, unspecified 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, unspecified Primary biliary cirrhosis (HCC) Biliary cirrhosis Lumbar degenerative disc disease Degeneration of lumbar or lumbosacral intervertebral disc Class 1 obesity due to excess calories with serious comorbidity and body mass index (BMI) of 32.0 to 32.9 in adult Adenopathy Enlargement of lymph nodes [facility] Diagnosis Adenopathy- Primary Enlargement of lymph nodes 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) Primary biliary cirrhosis (HCC) Biliary cirrhosis Malignant neoplasm of lower-outer quadrant of left breast of female, estrogen receptor positive (HCC) Adenopathy Enlargement of lymph nodes [facility] Malignant neoplasm of lower-outer quadrant of left breast of female, estrogen receptor positive (HCC) [facility] 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)- Primary Malignant neoplasm of lower-outer quadrant of left breast of female, estrogen receptor positive (HCC) 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 [facility] Diagnosis 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 unspecified malignant neoplasm of intrathoracic lymph nodes [facility] Diagnosis 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)- Primary [facility] Diagnosis Malignant neoplasm of lower-outer quadrant of left breast of female, estrogen receptor positive (HCC)- Primary 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 [facility] 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)- Primary Malignant neoplasm of lower-outer quadrant of left breast of female, estrogen receptor positive (HCC) 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 [facility] Diagnosis Malignant neoplasm of lower-outer quadrant of left breast of female, estrogen receptor positive (HCC)- Primary 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 Hypotension due to hypovolemia Functional diarrhea LAXMI (acute kidney injury) (HCC) Acute kidney failure, unspecified [facility] Diagnosis 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)- Primary Malignant neoplasm of lower-outer quadrant of left breast of female, estrogen receptor positive (HCC) 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 [facility] Diagnosis Examination of participant in clinical trial- Primary [facility] Diagnosis 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)- Primary [facility] Diagnosis Functional diarrhea- Primary [facility] Diagnosis Functional diarrhea- Primary [facility] Diagnosis 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)- Primary Secondary and unspecified malignant neoplasm of lymph nodes of axilla and upper limb [facility] Diagnosis 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 unspecified malignant neoplasm of intrathoracic lymph nodes Functional diarrhea [facility] Diagnosis 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)- Primary Malignant neoplasm of lower-outer quadrant of left breast of female, estrogen receptor positive (HCC) 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 [facility] Diagnosis Malignant neoplasm of lower-outer quadrant of left breast of female, estrogen receptor positive (HCC)- Primary 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) [facility] Diagnosis 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 unspecified malignant neoplasm of intrathoracic lymph nodes [facility] Diagnosis Malignant neoplasm of lower-outer quadrant of left breast of female, estrogen receptor positive (HCC)- Primary 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 [facility] Diagnosis Dehydration- Primary Functional diarrhea [facility] Diagnosis Malignant neoplasm of lower-outer quadrant of left breast of female, estrogen receptor positive (HCC) 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) [facility] Diagnosis Functional diarrhea- Primary [facility] Diagnosis Malignant neoplasm of lower-outer quadrant of left breast of female, estrogen receptor positive (HCC)- Primary 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) 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 [facility] Diagnosis 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)- Primary Malignant neoplasm of lower-outer quadrant of left breast of female, estrogen receptor positive (HCC) 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 [facility] Diagnosis 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)- Primary [facility] Diagnosis Malignant neoplasm of lower-outer quadrant of left breast of female, estrogen receptor positive (HCC) 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) [facility] Diagnosis 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)- Primary Malignant neoplasm of lower-outer quadrant of left breast of female, estrogen receptor positive (HCC) 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 [facility] Diagnosis 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) [facility] Diagnosis Malignant neoplasm of left breast in female, estrogen receptor positive, unspecified site of breast (HCC)- Primary 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, unspecified LAXMI (acute kidney injury) (HCC) Acute kidney failure, unspecified [facility] Diagnosis Malignant neoplasm of lower-outer quadrant of left breast of female, estrogen receptor positive (HCC)- Primary 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 [facility] Diagnosis Malignant neoplasm of left breast in female, estrogen receptor positive, unspecified site of breast (HCC)- Primary LAXMI (acute kidney injury) (HCC) Acute kidney failure, unspecified [facility] Diagnosis Malignant neoplasm of left breast in female, estrogen receptor positive, unspecified site of breast (HCC)- Primary Malignant neoplasm of lower-outer quadrant of left breast of female, estrogen receptor positive (HCC) 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) [facility] Diagnosis Malignant neoplasm of left breast in female, estrogen receptor positive, unspecified site of breast (HCC) Malignant neoplasm of lower-outer quadrant of left breast of female, estrogen receptor positive (HCC) 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) [facility] Diagnosis Malignant neoplasm of lower-outer quadrant of left breast of female, estrogen receptor positive (HCC)- Primary 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 Abnormal positron emission tomography (PET) scan Nonspecific abnormal results of other specified function study [facility] Diagnosis Malignant neoplasm of lower-outer quadrant of left breast of female, estrogen receptor positive (HCC)- Primary 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) [facility]* Diagnosis Cervicalgia- Primary [facility]* Diagnosis Arthritis of midfoot- Primary Unspecified arthropathy, ankle and foot [facility] Diagnosis Arthritis of midfoot- Primary Unspecified arthropathy, ankle and foot [facility]* Diagnosis 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)- Primary Malignant neoplasm of lower-outer quadrant of left breast of female, estrogen receptor positive (HCC) 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 [facility]* Diagnosis Stomatitis and mucositis- Primary Stomatitis and mucositis, unspecified Malignant neoplasm of left breast in female, estrogen receptor positive, unspecified site of breast (HCC) (HCC) 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 [facility]* Diagnosis Stomatitis and mucositis Stomatitis and mucositis, unspecified [facility]* Diagnosis Malignant neoplasm of left breast in female, estrogen receptor positive, unspecified site of breast (HCC)- Primary 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 [facility] Diagnosis Malignant neoplasm of lower-outer quadrant of left breast of female, estrogen receptor positive (HCC)- Primary 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) Malignant neoplasm of left breast in female, estrogen receptor positive, unspecified site of breast (HCC) 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 [facility] Diagnosis Urinary frequency- Primary Glucosuria Glycosuria Left lower quadrant abdominal tenderness with rebound tenderness Hyperglycemia Other abnormal glucose [facility] Diagnosis Newly diagnosed diabetes (HCC)- Primary Type II or unspecified type diabetes mellitus without mention of complication, not stated as uncontrolled documented in this encounter [facility] note* Diagnosis Lymphedema of left arm- Primary Malignant neoplasm of lower-outer quadrant of left breast of female, estrogen receptor positive (HCC) 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) [facility] Diagnosis Type 2 diabetes mellitus without complication, unspecified 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 insulin use (HCC)- Primary [facility] Diagnosis Malignant neoplasm of lower-outer quadrant of left breast of female, estrogen receptor positive (HCC) 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) [facility] Diagnosis Chemotherapy-induced cardiomyopathy (HCC)- Primary Secondary cardiomyopathy, unspecified Malignant neoplasm of lower-outer quadrant of left breast of female, estrogen receptor positive (HCC) Encounter for screening mammogram for high-risk patient Encounter for monitoring cardiotoxic drug therapy Encounter for therapeutic drug monitoring 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) LAXMI (acute kidney injury) (HCC) Acute kidney failure, unspecified Primary hypertension Unspecified essential hypertension Hyperglycemia Other abnormal glucose Microcytosis Other abnormality of red blood cells documented in this encounter [facility] note* Diagnosis 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) Malignant neoplasm of left breast in female, estrogen receptor positive, unspecified site of breast (HCC) 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 [facility] Diagnosis Malignant neoplasm of lower-outer quadrant of left breast of female, estrogen receptor positive (HCC) Type 2 diabetes mellitus without complication, unspecified 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 insulin use (HCC)- Primary [facility]* Diagnosis Type 2 diabetes mellitus without complication, unspecified 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 insulin use (HCC)- Primary [facility] Diagnosis Newly diagnosed Uncontrolled type 2 diabetes mellitus with hyperglycemia (HCC)- Primary Urinary tract infection without hematuria, site unspecified Metastasis from breast cancer (HCC) [facility] Diagnosis Malignant neoplasm of lower-outer quadrant of left breast of female, estrogen receptor positive (HCC) 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) 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 [facility] Diagnosis Type 2 diabetes mellitus without complication, unspecified whether fpc insulin use (HCC)- Primary [facility] Diagnosis 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) Malignant neoplasm of left breast in female, estrogen receptor positive, unspecified site of breast (HCC) 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 [facility] Diagnosis Malignant neoplasm of left breast in female, estrogen receptor positive, unspecified site of breast (HCC) 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 [facility]* Diagnosis Type 2 diabetes mellitus without complication, unspecified whether fpc insulin use (HCC)- Primary [facility]* Diagnosis Neck strain, initial encounter- Primary [facility]* Diagnosis Acute cystitis with hematuria- Primary Acute cystitis [facility]* Diagnosis Complicated UTI (urinary tract infection)- Primary Urinary tract infection, site not specified [facility] Diagnosis 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) Malignant neoplasm of left breast in female, estrogen receptor positive, unspecified site of breast (HCC) 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 [facility] Diagnosis 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)- Primary 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 Acute cystitis with hematuria Acute cystitis Primary hypertension Unspecified essential hypertension 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, unspecified [facility] Diagnosis 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)- Primary Malignant neoplasm of overlapping sites of left breast in female, estrogen receptor positive (HCC) [facility]* Diagnosis Right upper quadrant pain- Primary Abdominal pain, right upper quadrant [facility] Diagnosis Right upper quadrant pain Abdominal pain, right upper quadrant documented in this encounter [facility] note* Diagnosis Pre-operative examination- Primary Preoperative examination, unspecified History of radiation therapy Personal history of irradiation, presenting hazards to health Malignant neoplasm of left female breast, unspecified estrogen receptor status, unspecified site of breast (HCC) 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, unspecified Hypertension, unspecified type Primary biliary cirrhosis (HCC) Biliary cirrhosis Preop examination- Primary Preoperative examination, unspecified Pain in right hip Pain in joint, pelvic region and thigh Essential hypertension Unspecified essential hypertension Primary biliary cirrhosis (HCC) Biliary cirrhosis Malignant neoplasm of left female breast, unspecified estrogen receptor status, unspecified site of breast (HCC) Total knee replacement status, left Pre-op evaluation- Primary Preoperative examination, unspecified 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, unspecified Primary biliary cirrhosis (HCC) Biliary cirrhosis Lumbar degenerative disc disease Degeneration of lumbar or lumbosacral intervertebral disc Class 1 obesity due to excess calories with serious comorbidity and body mass index (BMI) of 32.0 to 32.9 in adult Type 2 diabetes mellitus without complication, unspecified 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 insulin use (HCC)- Primary Medication management Encounter for long-term (current) use of other medications [facility] Diagnosis Pre-operative examination- Primary Preoperative examination, unspecified History of radiation therapy Personal history of irradiation, presenting hazards to health Malignant neoplasm of left female breast, unspecified estrogen receptor status, unspecified site of breast (HCC) 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, unspecified Hypertension, unspecified type Primary biliary cirrhosis (HCC) Biliary cirrhosis Preop examination- Primary Preoperative examination, unspecified Pain in right hip Pain in joint, pelvic region and thigh Essential hypertension Unspecified essential hypertension Primary biliary cirrhosis (HCC) Biliary cirrhosis Malignant neoplasm of left female breast, unspecified estrogen receptor status, unspecified site of breast (HCC) Total knee replacement status, left Pre-op evaluation- Primary Preoperative examination, unspecified 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, unspecified Primary biliary cirrhosis (HCC) Biliary cirrhosis Lumbar degenerative disc disease Degeneration of lumbar or lumbosacral intervertebral disc Class 1 obesity due to excess calories with serious comorbidity and body mass index (BMI) of 32.0 to 32.9 in adult 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) Malignant neoplasm of left breast in female, estrogen receptor positive, unspecified site of breast (HCC) 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 [facility]* Diagnosis Pre-operative examination- Primary Preoperative examination, unspecified History of radiation therapy Personal history of irradiation, presenting hazards to health Malignant neoplasm of left female breast, unspecified estrogen receptor status, unspecified site of breast (HCC) 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, unspecified Hypertension, unspecified type Primary biliary cirrhosis (HCC) Biliary cirrhosis Preop examination- Primary Preoperative examination, unspecified Pain in right hip Pain in joint, pelvic region and thigh Essential hypertension Unspecified essential hypertension Primary biliary cirrhosis (HCC) Biliary cirrhosis Malignant neoplasm of left female breast, unspecified estrogen receptor status, unspecified site of breast (HCC) Total knee replacement status, left Pre-op evaluation- Primary Preoperative examination, unspecified 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, unspecified Primary biliary cirrhosis (HCC) Biliary cirrhosis Lumbar degenerative disc disease Degeneration of lumbar or lumbosacral intervertebral disc Class 1 obesity due to excess calories with serious comorbidity and body mass index (BMI) of 32.0 to 32.9 in adult 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 [facility] Diagnosis Pre-operative examination- Primary Preoperative examination, unspecified History of radiation therapy Personal history of irradiation, presenting hazards to health Malignant neoplasm of left female breast, unspecified estrogen receptor status, unspecified site of breast (HCC) 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, unspecified Hypertension, unspecified type Primary biliary cirrhosis (HCC) Biliary cirrhosis Preop examination- Primary Preoperative examination, unspecified Pain in right hip Pain in joint, pelvic region and thigh Essential hypertension Unspecified essential hypertension Primary biliary cirrhosis (HCC) Biliary cirrhosis Malignant neoplasm of left female breast, unspecified estrogen receptor status, unspecified site of breast (HCC) Total knee replacement status, left Right hip pain Pain in joint, pelvic region and thigh Pre-op evaluation- Primary Preoperative examination, unspecified 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, unspecified Primary biliary cirrhosis (HCC) Biliary cirrhosis Lumbar degenerative disc disease Degeneration of lumbar or lumbosacral intervertebral disc Class 1 obesity due to excess calories with serious comorbidity and body mass index (BMI) of 32.0 to 32.9 in adult [facility] Diagnosis Pre-operative examination- Primary Preoperative examination, unspecified History of radiation therapy Personal history of irradiation, presenting hazards to health Malignant neoplasm of left female breast, unspecified estrogen receptor status, unspecified site of breast (HCC) 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, unspecified Hypertension, unspecified type Primary biliary cirrhosis (HCC) Biliary cirrhosis Preop examination- Primary Preoperative examination, unspecified Pain in right hip Pain in joint, pelvic region and thigh Essential hypertension Unspecified essential hypertension Primary biliary cirrhosis (HCC) Biliary cirrhosis Malignant neoplasm of left female breast, unspecified estrogen receptor status, unspecified site of breast (HCC) Total knee replacement status, left Pre-op evaluation- Primary Preoperative examination, unspecified 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, unspecified Primary biliary cirrhosis (HCC) Biliary cirrhosis Lumbar degenerative disc disease Degeneration of lumbar or lumbosacral intervertebral disc Class 1 obesity due to excess calories with serious comorbidity and body mass index (BMI) of 32.0 to 32.9 in adult Malignant neoplasm of overlapping sites of left breast in female, estrogen receptor positive (HCC)- Primary 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 Malignant neoplasm of lower-outer quadrant of left breast of female, estrogen receptor positive (HCC) Type 2 diabetes mellitus with other specified complication, without long-term current use of insulin (HCC) 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, unspecified LAXMI (acute kidney injury) (HCC) Acute kidney failure, unspecified documented in this encounter [facility] note* Diagnosis Pre-operative examination- Primary Preoperative examination, unspecified History of radiation therapy Personal history of irradiation, presenting hazards to health Malignant neoplasm of left female breast, unspecified estrogen receptor status, unspecified site of breast (HCC) 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, unspecified Hypertension, unspecified type Primary biliary cirrhosis (HCC) Biliary cirrhosis Preop examination- Primary Preoperative examination, unspecified Pain in right hip Pain in joint, pelvic region and thigh Essential hypertension Unspecified essential hypertension Primary biliary cirrhosis (HCC) Biliary cirrhosis Malignant neoplasm of left female breast, unspecified estrogen receptor status, unspecified site of breast (HCC) Total knee replacement status, left Pre-op evaluation- Primary Preoperative examination, unspecified 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, unspecified Primary biliary cirrhosis (HCC) Biliary cirrhosis Lumbar degenerative disc disease Degeneration of lumbar or lumbosacral intervertebral disc Class 1 obesity due to excess calories with serious comorbidity and body mass index (BMI) of 32.0 to 32.9 in adult Malignant neoplasm of lower-outer quadrant of left breast of female, estrogen receptor positive (HCC)- Primary documented in this encounter [facility] note* Diagnosis Pre-operative examination- Primary Preoperative examination, unspecified History of radiation therapy Personal history of irradiation, presenting hazards to health Malignant neoplasm of left female breast, unspecified estrogen receptor status, unspecified site of breast (HCC) 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, unspecified Hypertension, unspecified type Primary biliary cirrhosis (HCC) Biliary cirrhosis Preop examination- Primary Preoperative examination, unspecified Pain in right hip Pain in joint, pelvic region and thigh Essential hypertension Unspecified essential hypertension Primary biliary cirrhosis (HCC) Biliary cirrhosis Malignant neoplasm of left female breast, unspecified estrogen receptor status, unspecified site of breast (HCC) Total knee replacement status, left Cough Pre-op evaluation- Primary Preoperative examination, unspecified 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, unspecified Primary biliary cirrhosis (HCC) Biliary cirrhosis Lumbar degenerative disc disease Degeneration of lumbar or lumbosacral intervertebral disc Class 1 obesity due to excess calories with serious comorbidity and body mass index (BMI) of 32.0 to 32.9 in adult documented in this encounter [facility] note* Diagnosis Pre-operative examination- Primary Preoperative examination, unspecified History of radiation therapy Personal history of irradiation, presenting hazards to health Malignant neoplasm of left female breast, unspecified estrogen receptor status, unspecified site of breast (HCC) 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, unspecified Hypertension, unspecified type Primary biliary cirrhosis (HCC) Biliary cirrhosis Preop examination- Primary Preoperative examination, unspecified Pain in right hip Pain in joint, pelvic region and thigh Essential hypertension Unspecified essential hypertension Primary biliary cirrhosis (HCC) Biliary cirrhosis Malignant neoplasm of left female breast, unspecified estrogen receptor status, unspecified site of breast (HCC) Total knee replacement status, left Pre-op evaluation- Primary Preoperative examination, unspecified 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, unspecified Primary biliary cirrhosis (HCC) Biliary cirrhosis Lumbar degenerative disc disease Degeneration of lumbar or lumbosacral intervertebral disc Class 1 obesity due to excess calories with serious comorbidity and body mass index (BMI) of 32.0 to 32.9 in adult Type 2 diabetes mellitus without complication, unspecified whether fpc insulin use (HCC)- Primary documented in this encounter [facility] note* Diagnosis Pre-operative examination- Primary Preoperative examination, unspecified History of radiation therapy Personal history of irradiation, presenting hazards to health Malignant neoplasm of left female breast, unspecified estrogen receptor status, unspecified site of breast (HCC) 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, unspecified Hypertension, unspecified type Primary biliary cirrhosis (HCC) Biliary cirrhosis Preop examination- Primary Preoperative examination, unspecified Pain in right hip Pain in joint, pelvic region and thigh Essential hypertension Unspecified essential hypertension Primary biliary cirrhosis (HCC) Biliary cirrhosis Malignant neoplasm of left female breast, unspecified estrogen receptor status, unspecified site of breast (HCC) Total knee replacement status, left Cough Pre-op evaluation- Primary Preoperative examination, unspecified 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, unspecified Primary biliary cirrhosis (HCC) Biliary cirrhosis Lumbar degenerative disc disease Degeneration of lumbar or lumbosacral intervertebral disc Class 1 obesity due to excess calories with serious comorbidity and body mass index (BMI) of 32.0 to 32.9 in adult documented in this encounter [facility] note* Diagnosis Pre-operative examination- Primary Preoperative examination, unspecified History of radiation therapy Personal history of irradiation, presenting hazards to health Malignant neoplasm of left female breast, unspecified estrogen receptor status, unspecified site of breast (HCC) 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, unspecified Hypertension, unspecified type Primary biliary cirrhosis (HCC) Biliary cirrhosis Preop examination- Primary Preoperative examination, unspecified Pain in right hip Pain in joint, pelvic region and thigh Essential hypertension Unspecified essential hypertension Primary biliary cirrhosis (HCC) Biliary cirrhosis Malignant neoplasm of left female breast, unspecified estrogen receptor status, unspecified site of breast (HCC) Total knee replacement status, left Pre-op evaluation- Primary Preoperative examination, unspecified 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, unspecified Primary biliary cirrhosis (HCC) Biliary cirrhosis Lumbar degenerative disc disease Degeneration of lumbar or lumbosacral intervertebral disc Class 1 obesity due to excess calories with serious comorbidity and body mass index (BMI) of 32.0 to 32.9 in adult Low back pain radiating to right leg- Primary Lumbago Status post total replacement of right hip Weakness of right hip Trochanteric bursitis of right hip Enthesopathy of hip region documented in this encounter [facility] note* Diagnosis Pre-operative examination- Primary Preoperative examination, unspecified History of radiation therapy Personal history of irradiation, presenting hazards to health Malignant neoplasm of left female breast, unspecified estrogen receptor status, unspecified site of breast (HCC) 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, unspecified Hypertension, unspecified type Primary biliary cirrhosis (HCC) Biliary cirrhosis Preop examination- Primary Preoperative examination, unspecified Pain in right hip Pain in joint, pelvic region and thigh Essential hypertension Unspecified essential hypertension Primary biliary cirrhosis (HCC) Biliary cirrhosis Malignant neoplasm of left female breast, unspecified estrogen receptor status, unspecified site of breast (HCC) Total knee replacement status, left Pre-op evaluation- Primary Preoperative examination, unspecified 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, unspecified Primary biliary cirrhosis (HCC) Biliary cirrhosis Lumbar degenerative disc disease Degeneration of lumbar or lumbosacral intervertebral disc Class 1 obesity due to excess calories with serious comorbidity and body mass index (BMI) of 32.0 to 32.9 in adult Pain in right hip Pain in joint, pelvic region and thigh documented in this encounter [facility] note* Diagnosis Pre-operative examination- Primary Preoperative examination, unspecified History of radiation therapy Personal history of irradiation, presenting hazards to health Malignant neoplasm of left female breast, unspecified estrogen receptor status, unspecified site of breast (HCC) 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, unspecified Hypertension, unspecified type Primary biliary cirrhosis (HCC) Biliary cirrhosis Preop examination- Primary Preoperative examination, unspecified Pain in right hip Pain in joint, pelvic region and thigh Essential hypertension Unspecified essential hypertension Primary biliary cirrhosis (HCC) Biliary cirrhosis Malignant neoplasm of left female breast, unspecified estrogen receptor status, unspecified site of breast (HCC) Total knee replacement status, left Pre-op evaluation- Primary Preoperative examination, unspecified 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, unspecified Primary biliary cirrhosis (HCC) Biliary cirrhosis Lumbar degenerative disc disease Degeneration of lumbar or lumbosacral intervertebral disc Class 1 obesity due to excess calories with serious comorbidity and body mass index (BMI) of 32.0 to 32.9 in adult 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) Malignant neoplasm of left breast in female, estrogen receptor positive, unspecified site of breast (HCC) 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 documented in this encounter [facility] note* Diagnosis Pre-operative examination- Primary Preoperative examination, unspecified History of radiation therapy Personal history of irradiation, presenting hazards to health Malignant neoplasm of left female breast, unspecified estrogen receptor status, unspecified site of breast (HCC) 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, unspecified Hypertension, unspecified type Primary biliary cirrhosis (HCC) Biliary cirrhosis Preop examination- Primary Preoperative examination, unspecified Pain in right hip Pain in joint, pelvic region and thigh Essential hypertension Unspecified essential hypertension Primary biliary cirrhosis (HCC) Biliary cirrhosis Malignant neoplasm of left female breast, unspecified estrogen receptor status, unspecified site of breast (HCC) Total knee replacement status, left Pre-op evaluation- Primary Preoperative examination, unspecified 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, unspecified Primary biliary cirrhosis (HCC) Biliary cirrhosis Lumbar degenerative disc disease Degeneration of lumbar or lumbosacral intervertebral disc Class 1 obesity due to excess calories with serious comorbidity and body mass index (BMI) of 32.0 to 32.9 in adult 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) Malignant neoplasm of overlapping sites of left breast in female, estrogen receptor positive (HCC) Poorly control type 2 diabetes mellitus (HCC)- Primary documented in this encounter [facility] note* Diagnosis Pre-operative examination- Primary Preoperative examination, unspecified History of radiation therapy Personal history of irradiation, presenting hazards to health Malignant neoplasm of left female breast, unspecified estrogen receptor status, unspecified site of breast (HCC) 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, unspecified Hypertension, unspecified type Primary biliary cirrhosis (HCC) Biliary cirrhosis Preop examination- Primary Preoperative examination, unspecified Pain in right hip Pain in joint, pelvic region and thigh Essential hypertension Unspecified essential hypertension Primary biliary cirrhosis (HCC) Biliary cirrhosis Malignant neoplasm of left female breast, unspecified estrogen receptor status, unspecified site of breast (HCC) Total knee replacement status, left Pre-op evaluation- Primary Preoperative examination, unspecified 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, unspecified Primary biliary cirrhosis (HCC) Biliary cirrhosis Lumbar degenerative disc disease Degeneration of lumbar or lumbosacral intervertebral disc Class 1 obesity due to excess calories with serious comorbidity and body mass index (BMI) of 32.0 to 32.9 in adult Poorly control type 2 diabetes mellitus (HCC)- Primary documented in this encounter [facility] note* Diagnosis Pre-operative examination- Primary Preoperative examination, unspecified History of radiation therapy Personal history of irradiation, presenting hazards to health Malignant neoplasm of left female breast, unspecified estrogen receptor status, unspecified site of breast (HCC) 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, unspecified Hypertension, unspecified type Primary biliary cirrhosis (HCC) Biliary cirrhosis Preop examination- Primary Preoperative examination, unspecified Pain in right hip Pain in joint, pelvic region and thigh Essential hypertension Unspecified essential hypertension Primary biliary cirrhosis (HCC) Biliary cirrhosis Malignant neoplasm of left female breast, unspecified estrogen receptor status, unspecified site of breast (HCC) Total knee replacement status, left Pre-op evaluation- Primary Preoperative examination, unspecified 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, unspecified Primary biliary cirrhosis (HCC) Biliary cirrhosis Lumbar degenerative disc disease Degeneration of lumbar or lumbosacral intervertebral disc Class 1 obesity due to excess calories with serious comorbidity and body mass index (BMI) of 32.0 to 32.9 in adult Malignant neoplasm of lower-outer quadrant of left breast of female, estrogen receptor positive (HCC) documented in this encounter [facility] note* Diagnosis Pre-operative examination- Primary Preoperative examination, unspecified History of radiation therapy Personal history of irradiation, presenting hazards to health Malignant neoplasm of left female breast, unspecified estrogen receptor status, unspecified site of breast (HCC) 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, unspecified Hypertension, unspecified type Primary biliary cirrhosis (HCC) Biliary cirrhosis Preop examination- Primary Preoperative examination, unspecified Pain in right hip Pain in joint, pelvic region and thigh Essential hypertension Unspecified essential hypertension Primary biliary cirrhosis (HCC) Biliary cirrhosis Malignant neoplasm of left female breast, unspecified estrogen receptor status, unspecified site of breast (HCC) Total knee replacement status, left Pre-op evaluation- Primary Preoperative examination, unspecified 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, unspecified Primary biliary cirrhosis (HCC) Biliary cirrhosis Lumbar degenerative disc disease Degeneration of lumbar or lumbosacral intervertebral disc Class 1 obesity due to excess calories with serious comorbidity and body mass index (BMI) of 32.0 to 32.9 in adult Type 2 diabetes mellitus without complication, unspecified 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 insulin use (HCC)- Primary History of breast cancer- Primary Personal history of malignant neoplasm of breast History of breast reconstruction Breast replaced by other means Encounter to discuss breast reconstruction Other specified counseling documented in this encounter [facility] note* Diagnosis Pre-operative examination- Primary Preoperative examination, unspecified History of radiation therapy Personal history of irradiation, presenting hazards to health Malignant neoplasm of left female breast, unspecified estrogen receptor status, unspecified site of breast (HCC) 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, unspecified Hypertension, unspecified type Primary biliary cirrhosis (HCC) Biliary cirrhosis Preop examination- Primary Preoperative examination, unspecified Pain in right hip Pain in joint, pelvic region and thigh Essential hypertension Unspecified essential hypertension Primary biliary cirrhosis (HCC) Biliary cirrhosis Malignant neoplasm of left female breast, unspecified estrogen receptor status, unspecified site of breast (HCC) Total knee replacement status, left Pre-op evaluation- Primary Preoperative examination, unspecified 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, unspecified Primary biliary cirrhosis (HCC) Biliary cirrhosis Lumbar degenerative disc disease Degeneration of lumbar or lumbosacral intervertebral disc Class 1 obesity due to excess calories with serious comorbidity and body mass index (BMI) of 32.0 to 32.9 in adult Malignant neoplasm of lower-outer quadrant of left breast of female, estrogen receptor positive (HCC)- Primary documented in this encounter [facility] note* Diagnosis Pre-operative examination- Primary Preoperative examination, unspecified History of radiation therapy Personal history of irradiation, presenting hazards to health Malignant neoplasm of left female breast, unspecified estrogen receptor status, unspecified site of breast (HCC) 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, unspecified Hypertension, unspecified type Primary biliary cirrhosis (HCC) Biliary cirrhosis Preop examination- Primary Preoperative examination, unspecified Pain in right hip Pain in joint, pelvic region and thigh Essential hypertension Unspecified essential hypertension Primary biliary cirrhosis (HCC) Biliary cirrhosis Malignant neoplasm of left female breast, unspecified estrogen receptor status, unspecified site of breast (HCC) Total knee replacement status, left Pre-op evaluation- Primary Preoperative examination, unspecified 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, unspecified Primary biliary cirrhosis (HCC) Biliary cirrhosis Lumbar degenerative disc disease Degeneration of lumbar or lumbosacral intervertebral disc Class 1 obesity due to excess calories with serious comorbidity and body mass index (BMI) of 32.0 to 32.9 in adult Malignant neoplasm of left breast in female, estrogen receptor positive, unspecified site of breast (HCC) 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 documented in this encounter [facility] note* Diagnosis Pre-operative examination- Primary Preoperative examination, unspecified History of radiation therapy Personal history of irradiation, presenting hazards to health Malignant neoplasm of left female breast, unspecified estrogen receptor status, unspecified site of breast (HCC) 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, unspecified Hypertension, unspecified type Primary biliary cirrhosis (HCC) Biliary cirrhosis Preop examination- Primary Preoperative examination, unspecified Pain in right hip Pain in joint, pelvic region and thigh Essential hypertension Unspecified essential hypertension Primary biliary cirrhosis (HCC) Biliary cirrhosis Malignant neoplasm of left female breast, unspecified estrogen receptor status, unspecified site of breast (HCC) Total knee replacement status, left Pre-op evaluation- Primary Preoperative examination, unspecified 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, unspecified Primary biliary cirrhosis (HCC) Biliary cirrhosis Lumbar degenerative disc disease Degeneration of lumbar or lumbosacral intervertebral disc Class 1 obesity due to excess calories with serious comorbidity and body mass index (BMI) of 32.0 to 32.9 in adult 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) Malignant neoplasm of left breast in female, estrogen receptor positive, unspecified site of breast (HCC) 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 documented in this encounter [facility] note* Diagnosis Pre-operative examination- Primary Preoperative examination, unspecified History of radiation therapy Personal history of irradiation, presenting hazards to health Malignant neoplasm of left female breast, unspecified estrogen receptor status, unspecified site of breast (HCC) 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, unspecified Hypertension, unspecified type Primary biliary cirrhosis (HCC) Biliary cirrhosis Preop examination- Primary Preoperative examination, unspecified Pain in right hip Pain in joint, pelvic region and thigh Essential hypertension Unspecified essential hypertension Primary biliary cirrhosis (HCC) Biliary cirrhosis Malignant neoplasm of left female breast, unspecified estrogen receptor status, unspecified site of breast (HCC) Total knee replacement status, left Pre-op evaluation- Primary Preoperative examination, unspecified 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, unspecified Primary biliary cirrhosis (HCC) Biliary cirrhosis Lumbar degenerative disc disease Degeneration of lumbar or lumbosacral intervertebral disc Class 1 obesity due to excess calories with serious comorbidity and body mass index (BMI) of 32.0 to 32.9 in adult Malignant neoplasm of lower-outer quadrant of left breast of female, estrogen receptor positive (HCC)- Primary History of breast cancer Personal history of malignant neoplasm of breast History of breast reconstruction Breast replaced by other means Encounter to discuss breast reconstruction Other specified counseling [facility] Diagnosis Pre-operative examination- Primary Preoperative examination, unspecified History of radiation therapy Personal history of irradiation, presenting hazards to health Malignant neoplasm of left female breast, unspecified estrogen receptor status, unspecified site of breast (HCC) 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, unspecified Hypertension, unspecified type Primary biliary cirrhosis (HCC) Biliary cirrhosis Preop examination- Primary Preoperative examination, unspecified Pain in right hip Pain in joint, pelvic region and thigh Essential hypertension Unspecified essential hypertension Primary biliary cirrhosis (HCC) Biliary cirrhosis Malignant neoplasm of left female breast, unspecified estrogen receptor status, unspecified site of breast (HCC) Total knee replacement status, left Pre-op evaluation- Primary Preoperative examination, unspecified 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, unspecified Primary biliary cirrhosis (HCC) Biliary cirrhosis Lumbar degenerative disc disease Degeneration of lumbar or lumbosacral intervertebral disc Class 1 obesity due to excess calories with serious comorbidity and body mass index (BMI) of 32.0 to 32.9 in adult Malignant neoplasm of lower-outer quadrant of left breast of female, estrogen receptor positive (HCC) documented in this encounter [facility] note* Diagnosis Pre-operative examination- Primary Preoperative examination, unspecified History of radiation therapy Personal history of irradiation, presenting hazards to health Malignant neoplasm of left female breast, unspecified estrogen receptor status, unspecified site of breast (HCC) 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, unspecified Hypertension, unspecified type Primary biliary cirrhosis (HCC) Biliary cirrhosis Preop examination- Primary Preoperative examination, unspecified Pain in right hip Pain in joint, pelvic region and thigh Essential hypertension Unspecified essential hypertension Primary biliary cirrhosis (HCC) Biliary cirrhosis Malignant neoplasm of left female breast, unspecified estrogen receptor status, unspecified site of breast (HCC) Total knee replacement status, left Pre-op evaluation- Primary Preoperative examination, unspecified 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, unspecified Primary biliary cirrhosis (HCC) Biliary cirrhosis Lumbar degenerative disc disease Degeneration of lumbar or lumbosacral intervertebral disc Class 1 obesity due to excess calories with serious comorbidity and body mass index (BMI) of 32.0 to 32.9 in adult Malignant neoplasm of overlapping sites of left breast in female, estrogen receptor positive (HCC) 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 Malignant neoplasm of lower-outer quadrant of left breast of female, estrogen receptor positive (HCC) Diabetes mellitus treated with insulin (HCC)- Primary [facility] Diagnosis Pre-operative examination- Primary Preoperative examination, unspecified History of radiation therapy Personal history of irradiation, presenting hazards to health Malignant neoplasm of left female breast, unspecified estrogen receptor status, unspecified site of breast (HCC) 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, unspecified Hypertension, unspecified type Primary biliary cirrhosis (HCC) Biliary cirrhosis Preop examination- Primary Preoperative examination, unspecified Pain in right hip Pain in joint, pelvic region and thigh Essential hypertension Unspecified essential hypertension Primary biliary cirrhosis (HCC) Biliary cirrhosis Malignant neoplasm of left female breast, unspecified estrogen receptor status, unspecified site of breast (HCC) Total knee replacement status, left Pre-op evaluation- Primary Preoperative examination, unspecified 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, unspecified Primary biliary cirrhosis (HCC) Biliary cirrhosis Lumbar degenerative disc disease Degeneration of lumbar or lumbosacral intervertebral disc Class 1 obesity due to excess calories with serious comorbidity and body mass index (BMI) of 32.0 to 32.9 in adult Malignant neoplasm of left breast in female, estrogen receptor positive, unspecified site of breast (HCC)- Primary 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 Swelling of limb 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, unspecified Diabetes mellitus treated with insulin (HCC)- Primary documented in this encounter [facility] note* Diagnosis Pre-operative examination- Primary Preoperative examination, unspecified History of radiation therapy Personal history of irradiation, presenting hazards to health Malignant neoplasm of left female breast, unspecified estrogen receptor status, unspecified site of breast (HCC) 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, unspecified Hypertension, unspecified type Primary biliary cirrhosis (HCC) Biliary cirrhosis Preop examination- Primary Preoperative examination, unspecified Pain in right hip Pain in joint, pelvic region and thigh Essential hypertension Unspecified essential hypertension Primary biliary cirrhosis (HCC) Biliary cirrhosis Malignant neoplasm of left female breast, unspecified estrogen receptor status, unspecified site of breast (HCC) Total knee replacement status, left Pre-op evaluation- Primary Preoperative examination, unspecified 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, unspecified Primary biliary cirrhosis (HCC) Biliary cirrhosis Lumbar degenerative disc disease Degeneration of lumbar or lumbosacral intervertebral disc Class 1 obesity due to excess calories with serious comorbidity and body mass index (BMI) of 32.0 to 32.9 in adult Malignant neoplasm of left breast in female, estrogen receptor positive, unspecified site of breast (HCC)- Primary Diabetes mellitus treated with insulin (HCC)- Primary Malignant neoplasm of lower-outer quadrant of left breast of female, estrogen receptor positive (HCC) [facility] Diagnosis Pre-operative examination- Primary Preoperative examination, unspecified History of radiation therapy Personal history of irradiation, presenting hazards to health Malignant neoplasm of left female breast, unspecified estrogen receptor status, unspecified site of breast (HCC) 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, unspecified Hypertension, unspecified type Primary biliary cirrhosis (HCC) Biliary cirrhosis Preop examination- Primary Preoperative examination, unspecified Pain in right hip Pain in joint, pelvic region and thigh Essential hypertension Unspecified essential hypertension Primary biliary cirrhosis (HCC) Biliary cirrhosis Malignant neoplasm of left female breast, unspecified estrogen receptor status, unspecified site of breast (HCC) Total knee replacement status, left Pre-op evaluation- Primary Preoperative examination, unspecified 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, unspecified Primary biliary cirrhosis (HCC) Biliary cirrhosis Lumbar degenerative disc disease Degeneration of lumbar or lumbosacral intervertebral disc Class 1 obesity due to excess calories with serious comorbidity and body mass index (BMI) of 32.0 to 32.9 in adult Malignant neoplasm of left breast in female, estrogen receptor positive, unspecified site of breast (HCC) Swelling of limb Diabetes mellitus treated with insulin (HCC)- Primary Malignant neoplasm of lower-outer quadrant of left breast of female, estrogen receptor positive (HCC) [facility]* Diagnosis Pre-operative examination- Primary Preoperative examination, unspecified History of radiation therapy Personal history of irradiation, presenting hazards to health Malignant neoplasm of left female breast, unspecified estrogen receptor status, unspecified site of breast (HCC) 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, unspecified Hypertension, unspecified type Primary biliary cirrhosis (HCC) Biliary cirrhosis Preop examination- Primary Preoperative examination, unspecified Pain in right hip Pain in joint, pelvic region and thigh Essential hypertension Unspecified essential hypertension Primary biliary cirrhosis (HCC) Biliary cirrhosis Malignant neoplasm of left female breast, unspecified estrogen receptor status, unspecified site of breast (HCC) Total knee replacement status, left Pre-op evaluation- Primary Preoperative examination, unspecified 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, unspecified Primary biliary cirrhosis (HCC) Biliary cirrhosis Lumbar degenerative disc disease Degeneration of lumbar or lumbosacral intervertebral disc Class 1 obesity due to excess calories with serious comorbidity and body mass index (BMI) of 32.0 to 32.9 in adult Lymphedema of left arm- Primary Malignant neoplasm of lower-outer quadrant of left breast of female, estrogen receptor positive (HCC) Diabetes mellitus treated with insulin (HCC)- Primary Malignant neoplasm of lower-outer quadrant of left breast of female, estrogen receptor positive (HCC) documented in this encounter [facility] note* Diagnosis Pre-operative examination- Primary Preoperative examination, unspecified History of radiation therapy Personal history of irradiation, presenting hazards to health Malignant neoplasm of left female breast, unspecified estrogen receptor status, unspecified site of breast (HCC) 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, unspecified Hypertension, unspecified type Primary biliary cirrhosis (HCC) Biliary cirrhosis Preop examination- Primary Preoperative examination, unspecified Pain in right hip Pain in joint, pelvic region and thigh Essential hypertension Unspecified essential hypertension Primary biliary cirrhosis (HCC) Biliary cirrhosis Malignant neoplasm of left female breast, unspecified estrogen receptor status, unspecified site of breast (HCC) Total knee replacement status, left Pre-op evaluation- Primary Preoperative examination, unspecified 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, unspecified Primary biliary cirrhosis (HCC) Biliary cirrhosis Lumbar degenerative disc disease Degeneration of lumbar or lumbosacral intervertebral disc Class 1 obesity due to excess calories with serious comorbidity and body mass index (BMI) of 32.0 to 32.9 in adult Malignant neoplasm of left breast in female, estrogen receptor positive, unspecified site of breast (HCC)- Primary 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 Diabetes mellitus treated with insulin (HCC)- Primary Malignant neoplasm of lower-outer quadrant of left breast of female, estrogen receptor positive (HCC) [facility]* Diagnosis Pre-operative examination- Primary Preoperative examination, unspecified History of radiation therapy Personal history of irradiation, presenting hazards to health Malignant neoplasm of left female breast, unspecified estrogen receptor status, unspecified site of breast (HCC) 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, unspecified Hypertension, unspecified type Primary biliary cirrhosis (HCC) Biliary cirrhosis Preop examination- Primary Preoperative examination, unspecified Pain in right hip Pain in joint, pelvic region and thigh Essential hypertension Unspecified essential hypertension Primary biliary cirrhosis (HCC) Biliary cirrhosis Malignant neoplasm of left female breast, unspecified estrogen receptor status, unspecified site of breast (HCC) Total knee replacement status, left Pre-op evaluation- Primary Preoperative examination, unspecified 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, unspecified Primary biliary cirrhosis (HCC) Biliary cirrhosis Lumbar degenerative disc disease Degeneration of lumbar or lumbosacral intervertebral disc Class 1 obesity due to excess calories with serious comorbidity and body mass index (BMI) of 32.0 to 32.9 in adult Diabetes mellitus treated with insulin (HCC)- Primary Malignant neoplasm of lower-outer quadrant of left breast of female, estrogen receptor positive (HCC) documented in this encounter [facility] note* Diagnosis Pre-operative examination- Primary Preoperative examination, unspecified History of radiation therapy Personal history of irradiation, presenting hazards to health Malignant neoplasm of left female breast, unspecified estrogen receptor status, unspecified site of breast (HCC) 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, unspecified Hypertension, unspecified type Primary biliary cirrhosis (HCC) Biliary cirrhosis Preop examination- Primary Preoperative examination, unspecified Pain in right hip Pain in joint, pelvic region and thigh Essential hypertension Unspecified essential hypertension Primary biliary cirrhosis (HCC) Biliary cirrhosis Malignant neoplasm of left female breast, unspecified estrogen receptor status, unspecified site of breast (HCC) Total knee replacement status, left Pre-op evaluation- Primary Preoperative examination, unspecified 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, unspecified Primary biliary cirrhosis (HCC) Biliary cirrhosis Lumbar degenerative disc disease Degeneration of lumbar or lumbosacral intervertebral disc Class 1 obesity due to excess calories with serious comorbidity and body mass index (BMI) of 32.0 to 32.9 in adult Type 2 diabetes mellitus without complication, without long-term current use of insulin (HCC)- Primary 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 (HCC) Biliary cirrhosis Lymphedema of left arm Sore throat Acute pharyngitis Excessive tear production of both lacrimal glands Primary hypertension Unspecified essential hypertension Senile cataract of left eye, unspecified age-related cataract type Malignant neoplasm of lower-outer quadrant of left breast of female, estrogen receptor positive (HCC) [facility] Diagnosis Pre-operative examination- Primary Preoperative examination, unspecified History of radiation therapy Personal history of irradiation, presenting hazards to health Malignant neoplasm of left female breast, unspecified estrogen receptor status, unspecified site of breast (HCC) 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, unspecified Hypertension, unspecified type Primary biliary cirrhosis (HCC) Biliary cirrhosis Preop examination- Primary Preoperative examination, unspecified Pain in right hip Pain in joint, pelvic region and thigh Essential hypertension Unspecified essential hypertension Primary biliary cirrhosis (HCC) Biliary cirrhosis Malignant neoplasm of left female breast, unspecified estrogen receptor status, unspecified site of breast (HCC) Total knee replacement status, left Pre-op evaluation- Primary Preoperative examination, unspecified 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, unspecified Primary biliary cirrhosis (HCC) Biliary cirrhosis Lumbar degenerative disc disease Degeneration of lumbar or lumbosacral intervertebral disc Class 1 obesity due to excess calories with serious comorbidity and body mass index (BMI) of 32.0 to 32.9 in adult 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) Malignant neoplasm of left breast in female, estrogen receptor positive, unspecified site of breast (HCC) 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 Malignant neoplasm of lower-outer quadrant of left breast of female, estrogen receptor positive (HCC) documented in this encounter [facility] note* Diagnosis Pre-operative examination- Primary Preoperative examination, unspecified History of radiation therapy Personal history of irradiation, presenting hazards to health Malignant neoplasm of left female breast, unspecified estrogen receptor status, unspecified site of breast (HCC) 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, unspecified Hypertension, unspecified type Primary biliary cirrhosis (HCC) Biliary cirrhosis Preop examination- Primary Preoperative examination, unspecified Pain in right hip Pain in joint, pelvic region and thigh Essential hypertension Unspecified essential hypertension Primary biliary cirrhosis (HCC) Biliary cirrhosis Malignant neoplasm of left female breast, unspecified estrogen receptor status, unspecified site of breast (HCC) Total knee replacement status, left Pre-op evaluation- Primary Preoperative examination, unspecified 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, unspecified Primary biliary cirrhosis (HCC) Biliary cirrhosis Lumbar degenerative disc disease Degeneration of lumbar or lumbosacral intervertebral disc Class 1 obesity due to excess calories with serious comorbidity and body mass index (BMI) of 32.0 to 32.9 in adult Lymphedema of left arm- Primary Malignant neoplasm of lower-outer quadrant of left breast of female, estrogen receptor positive (HCC) Malignant neoplasm of lower-outer quadrant of left breast of female, estrogen receptor positive (HCC) documented in this encounter [facility] note* Diagnosis Pre-operative examination- Primary Preoperative examination, unspecified History of radiation therapy Personal history of irradiation, presenting hazards to health Malignant neoplasm of left female breast, unspecified estrogen receptor status, unspecified site of breast (HCC) 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, unspecified Hypertension, unspecified type Primary biliary cirrhosis (HCC) Biliary cirrhosis Preop examination- Primary Preoperative examination, unspecified Pain in right hip Pain in joint, pelvic region and thigh Essential hypertension Unspecified essential hypertension Primary biliary cirrhosis (HCC) Biliary cirrhosis Malignant neoplasm of left female breast, unspecified estrogen receptor status, unspecified site of breast (HCC) Total knee replacement status, left Pre-op evaluation- Primary Preoperative examination, unspecified 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, unspecified Primary biliary cirrhosis (HCC) Biliary cirrhosis Lumbar degenerative disc disease Degeneration of lumbar or lumbosacral intervertebral disc Class 1 obesity due to excess calories with serious comorbidity and body mass index (BMI) of 32.0 to 32.9 in adult Acute cough- Primary URI, acute Acute upper respiratory infections of unspecified site Acute cough Malignant neoplasm of lower-outer quadrant of left breast of female, estrogen receptor positive (HCC) [facility] Diagnosis Pre-operative examination- Primary Preoperative examination, unspecified History of radiation therapy Personal history of irradiation, presenting hazards to health Malignant neoplasm of left female breast, unspecified estrogen receptor status, unspecified site of breast (HCC) 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, unspecified Hypertension, unspecified type Primary biliary cirrhosis (HCC) Biliary cirrhosis Preop examination- Primary Preoperative examination, unspecified Pain in right hip Pain in joint, pelvic region and thigh Essential hypertension Unspecified essential hypertension Primary biliary cirrhosis (HCC) Biliary cirrhosis Malignant neoplasm of left female breast, unspecified estrogen receptor status, unspecified site of breast (HCC) Total knee replacement status, left Pre-op evaluation- Primary Preoperative examination, unspecified 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, unspecified Primary biliary cirrhosis (HCC) Biliary cirrhosis Lumbar degenerative disc disease Degeneration of lumbar or lumbosacral intervertebral disc Class 1 obesity due to excess calories with serious comorbidity and body mass index (BMI) of 32.0 to 32.9 in adult Acute cough Malignant neoplasm of lower-outer quadrant of left breast of female, estrogen receptor positive (HCC) [facility] Diagnosis Pre-operative examination- Primary Preoperative examination, unspecified History of radiation therapy Personal history of irradiation, presenting hazards to health Malignant neoplasm of left female breast, unspecified estrogen receptor status, unspecified site of breast (HCC) 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, unspecified Hypertension, unspecified type Primary biliary cirrhosis (HCC) Biliary cirrhosis Preop examination- Primary Preoperative examination, unspecified Pain in right hip Pain in joint, pelvic region and thigh Essential hypertension Unspecified essential hypertension Primary biliary cirrhosis (HCC) Biliary cirrhosis Malignant neoplasm of left female breast, unspecified estrogen receptor status, unspecified site of breast (HCC) Total knee replacement status, left Pre-op evaluation- Primary Preoperative examination, unspecified 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, unspecified Primary biliary cirrhosis (HCC) Biliary cirrhosis Lumbar degenerative disc disease Degeneration of lumbar or lumbosacral intervertebral disc Class 1 obesity due to excess calories with serious comorbidity and body mass index (BMI) of 32.0 to 32.9 in adult Preop examination- Primary Preoperative examination, unspecified Viral URI with cough Acute upper respiratory infections of unspecified site Primary hypertension Unspecified essential hypertension 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, unspecified Gastroesophageal reflux disease, unspecified whether esophagitis present Primary biliary cirrhosis (HCC) Biliary cirrhosis Malignant neoplasm of lower-outer quadrant of left breast of female, estrogen receptor positive (HCC) Type 2 diabetes mellitus without complication, with long-term current use of insulin (HCC) Anemia, unspecified type Malignant neoplasm of lower-outer quadrant of left breast of female, estrogen receptor positive (HCC) [facility] Diagnosis Pre-operative examination- Primary Preoperative examination, unspecified History of radiation therapy Personal history of irradiation, presenting hazards to health Malignant neoplasm of left female breast, unspecified estrogen receptor status, unspecified site of breast (HCC) 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, unspecified Hypertension, unspecified type Primary biliary cirrhosis (HCC) Biliary cirrhosis Preop examination- Primary Preoperative examination, unspecified Pain in right hip Pain in joint, pelvic region and thigh Essential hypertension Unspecified essential hypertension Primary biliary cirrhosis (HCC) Biliary cirrhosis Malignant neoplasm of left female breast, unspecified estrogen receptor status, unspecified site of breast (HCC) Total knee replacement status, left Pre-op evaluation- Primary Preoperative examination, unspecified 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, unspecified Primary biliary cirrhosis (HCC) Biliary cirrhosis Lumbar degenerative disc disease Degeneration of lumbar or lumbosacral intervertebral disc Class 1 obesity due to excess calories with serious comorbidity and body mass index (BMI) of 32.0 to 32.9 in adult Type 2 diabetes mellitus without complication, unspecified 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 insulin use (HCC)- Primary Malignant neoplasm of lower-outer quadrant of left breast of female, estrogen receptor positive (HCC) documented in this encounter [facility] note* Diagnosis Pre-operative examination- Primary Preoperative examination, unspecified History of radiation therapy Personal history of irradiation, presenting hazards to health Malignant neoplasm of left female breast, unspecified estrogen receptor status, unspecified site of breast (HCC) 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, unspecified Hypertension, unspecified type Primary biliary cirrhosis (HCC) Biliary cirrhosis Preop examination- Primary Preoperative examination, unspecified Pain in right hip Pain in joint, pelvic region and thigh Essential hypertension Unspecified essential hypertension Primary biliary cirrhosis (HCC) Biliary cirrhosis Malignant neoplasm of left female breast, unspecified estrogen receptor status, unspecified site of breast (HCC) Total knee replacement status, left Pre-op evaluation- Primary Preoperative examination, unspecified 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, unspecified Primary biliary cirrhosis (HCC) Biliary cirrhosis Lumbar degenerative disc disease Degeneration of lumbar or lumbosacral intervertebral disc Class 1 obesity due to excess calories with serious comorbidity and body mass index (BMI) of 32.0 to 32.9 in adult Malignant neoplasm of lower-outer quadrant of left breast of female, estrogen receptor positive (HCC)- Primary Lymphedema of left arm Malignant neoplasm of lower-outer quadrant of left breast of female, estrogen receptor positive (HCC) documented in this encounter [facility] note* Diagnosis Pre-operative examination- Primary Preoperative examination, unspecified History of radiation therapy Personal history of irradiation, presenting hazards to health Malignant neoplasm of left female breast, unspecified estrogen receptor status, unspecified site of breast (HCC) 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, unspecified Hypertension, unspecified type Primary biliary cirrhosis (HCC) Biliary cirrhosis Preop examination- Primary Preoperative examination, unspecified Pain in right hip Pain in joint, pelvic region and thigh Essential hypertension Unspecified essential hypertension Primary biliary cirrhosis (HCC) Biliary cirrhosis Malignant neoplasm of left female breast, unspecified estrogen receptor status, unspecified site of breast (HCC) Total knee replacement status, left Pre-op evaluation- Primary Preoperative examination, unspecified 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, unspecified Primary biliary cirrhosis (HCC) Biliary cirrhosis Lumbar degenerative disc disease Degeneration of lumbar or lumbosacral intervertebral disc Class 1 obesity due to excess calories with serious comorbidity and body mass index (BMI) of 32.0 to 32.9 in adult Acute cough- Primary Primary hypertension Unspecified essential hypertension Sore throat Acute pharyngitis Malignant neoplasm of lower-outer quadrant of left breast of female, estrogen receptor positive (HCC) documented in this encounter [facility] note* Diagnosis Pre-operative examination- Primary Preoperative examination, unspecified History of radiation therapy Personal history of irradiation, presenting hazards to health Malignant neoplasm of left female breast, unspecified estrogen receptor status, unspecified site of breast (HCC) 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, unspecified Hypertension, unspecified type Primary biliary cirrhosis (HCC) Biliary cirrhosis Preop examination- Primary Preoperative examination, unspecified Pain in right hip Pain in joint, pelvic region and thigh Essential hypertension Unspecified essential hypertension Primary biliary cirrhosis (HCC) Biliary cirrhosis Malignant neoplasm of left female breast, unspecified estrogen receptor status, unspecified site of breast (HCC) Total knee replacement status, left Pre-op evaluation- Primary Preoperative examination, unspecified 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, unspecified Primary biliary cirrhosis (HCC) Biliary cirrhosis Lumbar degenerative disc disease Degeneration of lumbar or lumbosacral intervertebral disc Class 1 obesity due to excess calories with serious comorbidity and body mass index (BMI) of 32.0 to 32.9 in adult Malignant neoplasm of lower-outer quadrant of left breast of female, estrogen receptor positive (HCC)- Primary Encounter for education Counseling NOS Malignant neoplasm of lower-outer quadrant of left breast of female, estrogen receptor positive (HCC) documented in this encounter [facility] note* Diagnosis Pre-operative examination- Primary Preoperative examination, unspecified History of radiation therapy Personal history of irradiation, presenting hazards to health Malignant neoplasm of left female breast, unspecified estrogen receptor status, unspecified site of breast (HCC) 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, unspecified Hypertension, unspecified type Primary biliary cirrhosis (HCC) Biliary cirrhosis Preop examination- Primary Preoperative examination, unspecified Pain in right hip Pain in joint, pelvic region and thigh Essential hypertension Unspecified essential hypertension Primary biliary cirrhosis (HCC) Biliary cirrhosis Malignant neoplasm of left female breast, unspecified estrogen receptor status, unspecified site of breast (HCC) Total knee replacement status, left Pre-op evaluation- Primary Preoperative examination, unspecified 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, unspecified Primary biliary cirrhosis (HCC) Biliary cirrhosis Lumbar degenerative disc disease Degeneration of lumbar or lumbosacral intervertebral disc Class 1 obesity due to excess calories with serious comorbidity and body mass index (BMI) of 32.0 to 32.9 in adult Primary hypertension- Primary Unspecified essential hypertension Acute cough Sore throat Acute pharyngitis Malignant neoplasm of lower-outer quadrant of left breast of female, estrogen receptor positive (HCC) documented in this encounter [facility] note* Diagnosis Pre-operative examination- Primary Preoperative examination, unspecified History of radiation therapy Personal history of irradiation, presenting hazards to health Malignant neoplasm of left female breast, unspecified estrogen receptor status, unspecified site of breast (HCC) 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, unspecified Hypertension, unspecified type Primary biliary cirrhosis (HCC) Biliary cirrhosis Preop examination- Primary Preoperative examination, unspecified Pain in right hip Pain in joint, pelvic region and thigh Essential hypertension Unspecified essential hypertension Primary biliary cirrhosis (HCC) Biliary cirrhosis Malignant neoplasm of left female breast, unspecified estrogen receptor status, unspecified site of breast (HCC) Total knee replacement status, left Pre-op evaluation- Primary Preoperative examination, unspecified 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, unspecified Primary biliary cirrhosis (HCC) Biliary cirrhosis Lumbar degenerative disc disease Degeneration of lumbar or lumbosacral intervertebral disc Class 1 obesity due to excess calories with serious comorbidity and body mass index (BMI) of 32.0 to 32.9 in adult Malignant neoplasm of lower-outer quadrant of left breast of female, estrogen receptor positive (HCC)- Primary Lymphedema of left arm Malignant neoplasm of lower-outer quadrant of left breast of female, estrogen receptor positive (HCC) documented in this encounter [facility] note* Diagnosis Pre-operative examination- Primary Preoperative examination, unspecified History of radiation therapy Personal history of irradiation, presenting hazards to health Malignant neoplasm of left female breast, unspecified estrogen receptor status, unspecified site of breast (HCC) 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, unspecified Hypertension, unspecified type Primary biliary cirrhosis (HCC) Biliary cirrhosis Preop examination- Primary Preoperative examination, unspecified Pain in right hip Pain in joint, pelvic region and thigh Essential hypertension Unspecified essential hypertension Primary biliary cirrhosis (HCC) Biliary cirrhosis Malignant neoplasm of left female breast, unspecified estrogen receptor status, unspecified site of breast (HCC) Total knee replacement status, left Pre-op evaluation- Primary Preoperative examination, unspecified 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, unspecified Primary biliary cirrhosis (HCC) Biliary cirrhosis Lumbar degenerative disc disease Degeneration of lumbar or lumbosacral intervertebral disc Class 1 obesity due to excess calories with serious comorbidity and body mass index (BMI) of 32.0 to 32.9 in adult Malignant neoplasm of lower-outer quadrant of left breast of female, estrogen receptor positive (HCC)- Primary documented in this encounter [facility] note* Diagnosis Pre-operative examination- Primary Preoperative examination, unspecified History of radiation therapy Personal history of irradiation, presenting hazards to health Malignant neoplasm of left female breast, unspecified estrogen receptor status, unspecified site of breast (HCC) 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, unspecified Hypertension, unspecified type Primary biliary cirrhosis (HCC) Biliary cirrhosis Preop examination- Primary Preoperative examination, unspecified Pain in right hip Pain in joint, pelvic region and thigh Essential hypertension Unspecified essential hypertension Primary biliary cirrhosis (HCC) Biliary cirrhosis Malignant neoplasm of left female breast, unspecified estrogen receptor status, unspecified site of breast (HCC) Total knee replacement status, left Pre-op evaluation- Primary Preoperative examination, unspecified 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, unspecified Primary biliary cirrhosis (HCC) Biliary cirrhosis Lumbar degenerative disc disease Degeneration of lumbar or lumbosacral intervertebral disc Class 1 obesity due to excess calories with serious comorbidity and body mass index (BMI) of 32.0 to 32.9 in adult Malignant neoplasm of lower-outer quadrant of left breast of female, estrogen receptor positive (HCC) documented in this encounter [facility] note* Diagnosis Pre-operative examination- Primary Preoperative examination, unspecified History of radiation therapy Personal history of irradiation, presenting hazards to health Malignant neoplasm of left female breast, unspecified estrogen receptor status, unspecified site of breast (HCC) 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, unspecified Hypertension, unspecified type Primary biliary cirrhosis (HCC) Biliary cirrhosis Preop examination- Primary Preoperative examination, unspecified Pain in right hip Pain in joint, pelvic region and thigh Essential hypertension Unspecified essential hypertension Primary biliary cirrhosis (HCC) Biliary cirrhosis Malignant neoplasm of left female breast, unspecified estrogen receptor status, unspecified site of breast (HCC) Total knee replacement status, left Pre-op evaluation- Primary Preoperative examination, unspecified 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, unspecified Primary biliary cirrhosis (HCC) Biliary cirrhosis Lumbar degenerative disc disease Degeneration of lumbar or lumbosacral intervertebral disc Class 1 obesity due to excess calories with serious comorbidity and body mass index (BMI) of 32.0 to 32.9 in adult 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) Malignant neoplasm of overlapping sites of left breast in female, estrogen receptor positive (HCC) documented in this encounter [facility] note* Diagnosis Pre-operative examination- Primary Preoperative examination, unspecified History of radiation therapy Personal history of irradiation, presenting hazards to health Malignant neoplasm of left female breast, unspecified estrogen receptor status, unspecified site of breast (HCC) 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, unspecified Hypertension, unspecified type Primary biliary cirrhosis (HCC) Biliary cirrhosis Preop examination- Primary Preoperative examination, unspecified Pain in right hip Pain in joint, pelvic region and thigh Essential hypertension Unspecified essential hypertension Primary biliary cirrhosis (HCC) Biliary cirrhosis Malignant neoplasm of left female breast, unspecified estrogen receptor status, unspecified site of breast (HCC) Total knee replacement status, left Pre-op evaluation- Primary Preoperative examination, unspecified 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, unspecified Primary biliary cirrhosis (HCC) Biliary cirrhosis Lumbar degenerative disc disease Degeneration of lumbar or lumbosacral intervertebral disc Class 1 obesity due to excess calories with serious comorbidity and body mass index (BMI) of 32.0 to 32.9 in adult 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) Malignant neoplasm of overlapping sites of left breast in female, estrogen receptor positive (HCC) documented in this encounter [facility] note* Diagnosis Pre-operative examination- Primary Preoperative examination, unspecified History of radiation therapy Personal history of irradiation, presenting hazards to health Malignant neoplasm of left female breast, unspecified estrogen receptor status, unspecified site of breast (HCC) 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, unspecified Hypertension, unspecified type Primary biliary cirrhosis (HCC) Biliary cirrhosis Preop examination- Primary Preoperative examination, unspecified Pain in right hip Pain in joint, pelvic region and thigh Essential hypertension Unspecified essential hypertension Primary biliary cirrhosis (HCC) Biliary cirrhosis Malignant neoplasm of left female breast, unspecified estrogen receptor status, unspecified site of breast (HCC) Total knee replacement status, left Pre-op evaluation- Primary Preoperative examination, unspecified 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, unspecified Primary biliary cirrhosis (HCC) Biliary cirrhosis Lumbar degenerative disc disease Degeneration of lumbar or lumbosacral intervertebral disc Class 1 obesity due to excess calories with serious comorbidity and body mass index (BMI) of 32.0 to 32.9 in adult Post-operative state- Primary Other postprocedural status S/P breast reconstruction Breast replaced by other means documented in this encounter [facility] note* Diagnosis Pre-operative examination- Primary Preoperative examination, unspecified History of radiation therapy Personal history of irradiation, presenting hazards to health Malignant neoplasm of left female breast, unspecified estrogen receptor status, unspecified site of breast (HCC) 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, unspecified Hypertension, unspecified type Primary biliary cirrhosis (HCC) Biliary cirrhosis Preop examination- Primary Preoperative examination, unspecified Pain in right hip Pain in joint, pelvic region and thigh Essential hypertension Unspecified essential hypertension Primary biliary cirrhosis (HCC) Biliary cirrhosis Malignant neoplasm of left female breast, unspecified estrogen receptor status, unspecified site of breast (HCC) Total knee replacement status, left Pre-op evaluation- Primary Preoperative examination, unspecified 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, unspecified Primary biliary cirrhosis (HCC) Biliary cirrhosis Lumbar degenerative disc disease Degeneration of lumbar or lumbosacral intervertebral disc Class 1 obesity due to excess calories with serious comorbidity and body mass index (BMI) of 32.0 to 32.9 in adult Primary hypertension- Primary Unspecified essential hypertension Palpitations [facility] Diagnosis Pre-operative examination- Primary Preoperative examination, unspecified History of radiation therapy Personal history of irradiation, presenting hazards to health Malignant neoplasm of left female breast, unspecified estrogen receptor status, unspecified site of breast (HCC) 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, unspecified Hypertension, unspecified type Primary biliary cirrhosis (HCC) Biliary cirrhosis Preop examination- Primary Preoperative examination, unspecified Pain in right hip Pain in joint, pelvic region and thigh Essential hypertension Unspecified essential hypertension Primary biliary cirrhosis (HCC) Biliary cirrhosis Malignant neoplasm of left female breast, unspecified estrogen receptor status, unspecified site of breast (HCC) Total knee replacement status, left Pre-op evaluation- Primary Preoperative examination, unspecified 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, unspecified Primary biliary cirrhosis (HCC) Biliary cirrhosis Lumbar degenerative disc disease Degeneration of lumbar or lumbosacral intervertebral disc Class 1 obesity due to excess calories with serious comorbidity and body mass index (BMI) of 32.0 to 32.9 in adult Palpitations- Primary documented in this encounter [facility] note* Diagnosis Pre-operative examination- Primary Preoperative examination, unspecified History of radiation therapy Personal history of irradiation, presenting hazards to health Malignant neoplasm of left female breast, unspecified estrogen receptor status, unspecified site of breast (HCC) 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, unspecified Hypertension, unspecified type Primary biliary cirrhosis (HCC) Biliary cirrhosis Preop examination- Primary Preoperative examination, unspecified Pain in right hip Pain in joint, pelvic region and thigh Essential hypertension Unspecified essential hypertension Primary biliary cirrhosis (HCC) Biliary cirrhosis Malignant neoplasm of left female breast, unspecified estrogen receptor status, unspecified site of breast (HCC) Total knee replacement status, left Pre-op evaluation- Primary Preoperative examination, unspecified 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, unspecified Primary biliary cirrhosis (HCC) Biliary cirrhosis Lumbar degenerative disc disease Degeneration of lumbar or lumbosacral intervertebral disc Class 1 obesity due to excess calories with serious comorbidity and body mass index (BMI) of 32.0 to 32.9 in adult Malignant neoplasm of lower-outer quadrant of left breast of female, estrogen receptor positive (HCC)- Primary 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 Axillary pain, left [facility]* Diagnosis Pre-operative examination- Primary Preoperative examination, unspecified History of radiation therapy Personal history of irradiation, presenting hazards to health Malignant neoplasm of left female breast, unspecified estrogen receptor status, unspecified site of breast (HCC) 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, unspecified Hypertension, unspecified type Primary biliary cirrhosis (HCC) Biliary cirrhosis Preop examination- Primary Preoperative examination, unspecified Pain in right hip Pain in joint, pelvic region and thigh Essential hypertension Unspecified essential hypertension Primary biliary cirrhosis (HCC) Biliary cirrhosis Malignant neoplasm of left female breast, unspecified estrogen receptor status, unspecified site of breast (HCC) Total knee replacement status, left Pre-op evaluation- Primary Preoperative examination, unspecified 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, unspecified Primary biliary cirrhosis (HCC) Biliary cirrhosis Lumbar degenerative disc disease Degeneration of lumbar or lumbosacral intervertebral disc Class 1 obesity due to excess calories with serious comorbidity and body mass index (BMI) of 32.0 to 32.9 in adult Post-operative state- Primary Other postprocedural status S/P breast reconstruction Breast replaced by other means Encounter for change or removal of drains Other specified aftercare following surgery documented in this encounter [facility] note* Diagnosis Pre-operative examination- Primary Preoperative examination, unspecified History of radiation therapy Personal history of irradiation, presenting hazards to health Malignant neoplasm of left female breast, unspecified estrogen receptor status, unspecified site of breast (HCC) 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, unspecified Hypertension, unspecified type Primary biliary cirrhosis (HCC) Biliary cirrhosis Preop examination- Primary Preoperative examination, unspecified Pain in right hip Pain in joint, pelvic region and thigh Essential hypertension Unspecified essential hypertension Primary biliary cirrhosis (HCC) Biliary cirrhosis Malignant neoplasm of left female breast, unspecified estrogen receptor status, unspecified site of breast (HCC) Total knee replacement status, left Pre-op evaluation- Primary Preoperative examination, unspecified 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, unspecified Primary biliary cirrhosis (HCC) Biliary cirrhosis Lumbar degenerative disc disease Degeneration of lumbar or lumbosacral intervertebral disc Class 1 obesity due to excess calories with serious comorbidity and body mass index (BMI) of 32.0 to 32.9 in adult Post-operative state- Primary Other postprocedural status S/P breast reconstruction Breast replaced by other means Seroma of breast documented in this encounter [facility] note* Diagnosis Pre-operative examination- Primary Preoperative examination, unspecified History of radiation therapy Personal history of irradiation, presenting hazards to health Malignant neoplasm of left female breast, unspecified estrogen receptor status, unspecified site of breast (HCC) 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, unspecified Hypertension, unspecified type Primary biliary cirrhosis (HCC) Biliary cirrhosis Preop examination- Primary Preoperative examination, unspecified Pain in right hip Pain in joint, pelvic region and thigh Essential hypertension Unspecified essential hypertension Primary biliary cirrhosis (HCC) Biliary cirrhosis Malignant neoplasm of left female breast, unspecified estrogen receptor status, unspecified site of breast (HCC) Total knee replacement status, left Pre-op evaluation- Primary Preoperative examination, unspecified 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, unspecified Primary biliary cirrhosis (HCC) Biliary cirrhosis Lumbar degenerative disc disease Degeneration of lumbar or lumbosacral intervertebral disc Class 1 obesity due to excess calories with serious comorbidity and body mass index (BMI) of 32.0 to 32.9 in adult Primary hypertension- Primary Unspecified essential hypertension documented in this encounter [facility] note* Diagnosis Pre-operative examination- Primary Preoperative examination, unspecified History of radiation therapy Personal history of irradiation, presenting hazards to health Malignant neoplasm of left female breast, unspecified estrogen receptor status, unspecified site of breast (HCC) 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, unspecified Hypertension, unspecified type Primary biliary cirrhosis (HCC) Biliary cirrhosis Preop examination- Primary Preoperative examination, unspecified Pain in right hip Pain in joint, pelvic region and thigh Essential hypertension Unspecified essential hypertension Primary biliary cirrhosis (HCC) Biliary cirrhosis Malignant neoplasm of left female breast, unspecified estrogen receptor status, unspecified site of breast (HCC) Total knee replacement status, left Pre-op evaluation- Primary Preoperative examination, unspecified 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, unspecified Primary biliary cirrhosis (HCC) Biliary cirrhosis Lumbar degenerative disc disease Degeneration of lumbar or lumbosacral intervertebral disc Class 1 obesity due to excess calories with serious comorbidity and body mass index (BMI) of 32.0 to 32.9 in adult Malignant neoplasm of left breast in female, estrogen receptor positive, unspecified site of breast (HCC) 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 documented in this encounter [facility] note* Diagnosis Pre-operative examination- Primary Preoperative examination, unspecified History of radiation therapy Personal history of irradiation, presenting hazards to health Malignant neoplasm of left female breast, unspecified estrogen receptor status, unspecified site of breast (HCC) 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, unspecified Hypertension, unspecified type Primary biliary cirrhosis (HCC) Biliary cirrhosis Preop examination- Primary Preoperative examination, unspecified Pain in right hip Pain in joint, pelvic region and thigh Essential hypertension Unspecified essential hypertension Primary biliary cirrhosis (HCC) Biliary cirrhosis Malignant neoplasm of left female breast, unspecified estrogen receptor status, unspecified site of breast (HCC) Total knee replacement status, left Pre-op evaluation- Primary Preoperative examination, unspecified 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, unspecified Primary biliary cirrhosis (HCC) Biliary cirrhosis Lumbar degenerative disc disease Degeneration of lumbar or lumbosacral intervertebral disc Class 1 obesity due to excess calories with serious comorbidity and body mass index (BMI) of 32.0 to 32.9 in adult Post-operative state- Primary Other postprocedural status S/P breast reconstruction Breast replaced by other means documented in this encounter [facility] note* Diagnosis Pre-operative examination- Primary Preoperative examination, unspecified History of radiation therapy Personal history of irradiation, presenting hazards to health Malignant neoplasm of left female breast, unspecified estrogen receptor status, unspecified site of breast (HCC) 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, unspecified Hypertension, unspecified type Primary biliary cirrhosis (HCC) Biliary cirrhosis Preop examination- Primary Preoperative examination, unspecified Pain in right hip Pain in joint, pelvic region and thigh Essential hypertension Unspecified essential hypertension Primary biliary cirrhosis (HCC) Biliary cirrhosis Malignant neoplasm of left female breast, unspecified estrogen receptor status, unspecified site of breast (HCC) Total knee replacement status, left Pre-op evaluation- Primary Preoperative examination, unspecified 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, unspecified Primary biliary cirrhosis (HCC) Biliary cirrhosis Lumbar degenerative disc disease Degeneration of lumbar or lumbosacral intervertebral disc Class 1 obesity due to excess calories with serious comorbidity and body mass index (BMI) of 32.0 to 32.9 in adult Type 2 diabetes mellitus without complication, unspecified 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 insulin use (HCC)- Primary Medication management Encounter for long-term (current) use of other medications documented in this encounter [facility] note* Diagnosis Pre-operative examination- Primary Preoperative examination, unspecified History of radiation therapy Personal history of irradiation, presenting hazards to health Malignant neoplasm of left female breast, unspecified estrogen receptor status, unspecified site of breast (HCC) 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, unspecified Hypertension, unspecified type Primary biliary cirrhosis (HCC) Biliary cirrhosis Preop examination- Primary Preoperative examination, unspecified Pain in right hip Pain in joint, pelvic region and thigh Essential hypertension Unspecified essential hypertension Primary biliary cirrhosis (HCC) Biliary cirrhosis Malignant neoplasm of left female breast, unspecified estrogen receptor status, unspecified site of breast (HCC) Total knee replacement status, left Pre-op evaluation- Primary Preoperative examination, unspecified 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, unspecified Primary biliary cirrhosis (HCC) Biliary cirrhosis Lumbar degenerative disc disease Degeneration of lumbar or lumbosacral intervertebral disc Class 1 obesity due to excess calories with serious comorbidity and body mass index (BMI) of 32.0 to 32.9 in adult Post-operative state- Primary Other postprocedural status History of breast cancer Personal history of malignant neoplasm of breast S/P breast reconstruction Breast replaced by other means Seroma of breast [facility]* Diagnosis Pre-operative examination- Primary Preoperative examination, unspecified History of radiation therapy Personal history of irradiation, presenting hazards to health Malignant neoplasm of left female breast, unspecified estrogen receptor status, unspecified site of breast (HCC) 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, unspecified Hypertension, unspecified type Primary biliary cirrhosis (HCC) Biliary cirrhosis Preop examination- Primary Preoperative examination, unspecified Pain in right hip Pain in joint, pelvic region and thigh Essential hypertension Unspecified essential hypertension Primary biliary cirrhosis (HCC) Biliary cirrhosis Malignant neoplasm of left female breast, unspecified estrogen receptor status, unspecified site of breast (HCC) Total knee replacement status, left Pre-op evaluation- Primary Preoperative examination, unspecified 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, unspecified Primary biliary cirrhosis (HCC) Biliary cirrhosis Lumbar degenerative disc disease Degeneration of lumbar or lumbosacral intervertebral disc Class 1 obesity due to excess calories with serious comorbidity and body mass index (BMI) of 32.0 to 32.9 in adult Malignant neoplasm of left breast in female, estrogen receptor positive, unspecified site of breast (HCC) 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 documented in this encounter [facility] note* Diagnosis Pre-operative examination- Primary Preoperative examination, unspecified History of radiation therapy Personal history of irradiation, presenting hazards to health Malignant neoplasm of left female breast, unspecified estrogen receptor status, unspecified site of breast (HCC) 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, unspecified Hypertension, unspecified type Primary biliary cirrhosis (HCC) Biliary cirrhosis Preop examination- Primary Preoperative examination, unspecified Pain in right hip Pain in joint, pelvic region and thigh Essential hypertension Unspecified essential hypertension Primary biliary cirrhosis (HCC) Biliary cirrhosis Malignant neoplasm of left female breast, unspecified estrogen receptor status, unspecified site of breast (HCC) Total knee replacement status, left Pre-op evaluation- Primary Preoperative examination, unspecified 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, unspecified Primary biliary cirrhosis (HCC) Biliary cirrhosis Lumbar degenerative disc disease Degeneration of lumbar or lumbosacral intervertebral disc Class 1 obesity due to excess calories with serious comorbidity and body mass index (BMI) of 32.0 to 32.9 in adult Thyroid nodule- Primary Nontoxic uninodular goiter [facility]* Diagnosis Pre-operative examination- Primary Preoperative examination, unspecified History of radiation therapy Personal history of irradiation, presenting hazards to health Malignant neoplasm of left female breast, unspecified estrogen receptor status, unspecified site of breast (HCC) 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, unspecified Hypertension, unspecified type Primary biliary cirrhosis (HCC) Biliary cirrhosis Preop examination- Primary Preoperative examination, unspecified Pain in right hip Pain in joint, pelvic region and thigh Essential hypertension Unspecified essential hypertension Primary biliary cirrhosis (HCC) Biliary cirrhosis Malignant neoplasm of left female breast, unspecified estrogen receptor status, unspecified site of breast (HCC) Total knee replacement status, left Pre-op evaluation- Primary Preoperative examination, unspecified 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, unspecified Primary biliary cirrhosis (HCC) Biliary cirrhosis Lumbar degenerative disc disease Degeneration of lumbar or lumbosacral intervertebral disc Class 1 obesity due to excess calories with serious comorbidity and body mass index (BMI) of 32.0 to 32.9 in adult Seroma of breast- Primary Post-operative state Other postprocedural status documented in this encounter [facility] note* Diagnosis Pre-operative examination- Primary Preoperative examination, unspecified History of radiation therapy Personal history of irradiation, presenting hazards to health Malignant neoplasm of left female breast, unspecified estrogen receptor status, unspecified site of breast (HCC) 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, unspecified Hypertension, unspecified type Primary biliary cirrhosis (HCC) Biliary cirrhosis Preop examination- Primary Preoperative examination, unspecified Pain in right hip Pain in joint, pelvic region and thigh Essential hypertension Unspecified essential hypertension Primary biliary cirrhosis (HCC) Biliary cirrhosis Malignant neoplasm of left female breast, unspecified estrogen receptor status, unspecified site of breast (HCC) Total knee replacement status, left Pre-op evaluation- Primary Preoperative examination, unspecified 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, unspecified Primary biliary cirrhosis (HCC) Biliary cirrhosis Lumbar degenerative disc disease Degeneration of lumbar or lumbosacral intervertebral disc Class 1 obesity due to excess calories with serious comorbidity and body mass index (BMI) of 32.0 to 32.9 in adult 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)- Primary 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 documented in this encounter [facility] note* Diagnosis Pre-operative examination- Primary Preoperative examination, unspecified History of radiation therapy Personal history of irradiation, presenting hazards to health Malignant neoplasm of left female breast, unspecified estrogen receptor status, unspecified site of breast (HCC) 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, unspecified Hypertension, unspecified type Primary biliary cirrhosis (HCC) Biliary cirrhosis Preop examination- Primary Preoperative examination, unspecified Pain in right hip Pain in joint, pelvic region and thigh Essential hypertension Unspecified essential hypertension Primary biliary cirrhosis (HCC) Biliary cirrhosis Malignant neoplasm of left female breast, unspecified estrogen receptor status, unspecified site of breast (HCC) Total knee replacement status, left Pre-op evaluation- Primary Preoperative examination, unspecified 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, unspecified Primary biliary cirrhosis (HCC) Biliary cirrhosis Lumbar degenerative disc disease Degeneration of lumbar or lumbosacral intervertebral disc Class 1 obesity due to excess calories with serious comorbidity and body mass index (BMI) of 32.0 to 32.9 in adult Thyroid nodule Nontoxic uninodular goiter documented in this encounter [facility] note* Diagnosis Pre-operative examination- Primary Preoperative examination, unspecified History of radiation therapy Personal history of irradiation, presenting hazards to health Malignant neoplasm of left female breast, unspecified estrogen receptor status, unspecified site of breast (HCC) 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, unspecified Hypertension, unspecified type Primary biliary cirrhosis (HCC) Biliary cirrhosis Preop examination- Primary Preoperative examination, unspecified Pain in right hip Pain in joint, pelvic region and thigh Essential hypertension Unspecified essential hypertension Primary biliary cirrhosis (HCC) Biliary cirrhosis Malignant neoplasm of left female breast, unspecified estrogen receptor status, unspecified site of breast (HCC) Total knee replacement status, left Pre-op evaluation- Primary Preoperative examination, unspecified 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, unspecified Primary biliary cirrhosis (HCC) Biliary cirrhosis Lumbar degenerative disc disease Degeneration of lumbar or lumbosacral intervertebral disc Class 1 obesity due to excess calories with serious comorbidity and body mass index (BMI) of 32.0 to 32.9 in adult Malignant neoplasm of left breast in female, estrogen receptor positive, unspecified site of breast (HCC)- Primary 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, unspecified Lymphedema of left arm Insomnia due to medical condition Insomnia due to medical condition classified elsewhere [facility] Diagnosis Pre-operative examination- Primary Preoperative examination, unspecified History of radiation therapy Personal history of irradiation, presenting hazards to health Malignant neoplasm of left female breast, unspecified estrogen receptor status, unspecified site of breast (HCC) 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, unspecified Hypertension, unspecified type Primary biliary cirrhosis (HCC) Biliary cirrhosis Preop examination- Primary Preoperative examination, unspecified Pain in right hip Pain in joint, pelvic region and thigh Essential hypertension Unspecified essential hypertension Primary biliary cirrhosis (HCC) Biliary cirrhosis Malignant neoplasm of left female breast, unspecified estrogen receptor status, unspecified site of breast (HCC) Total knee replacement status, left Pre-op evaluation- Primary Preoperative examination, unspecified 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, unspecified Primary biliary cirrhosis (HCC) Biliary cirrhosis Lumbar degenerative disc disease Degeneration of lumbar or lumbosacral intervertebral disc Class 1 obesity due to excess calories with serious comorbidity and body mass index (BMI) of 32.0 to 32.9 in adult Type 2 diabetes mellitus without complication, unspecified whether fpc insulin use (HCC)- Primary documented in this encounter [facility] note* Diagnosis Pre-operative examination- Primary Preoperative examination, unspecified History of radiation therapy Personal history of irradiation, presenting hazards to health Malignant neoplasm of left female breast, unspecified estrogen receptor status, unspecified site of breast (HCC) 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, unspecified Hypertension, unspecified type Primary biliary cirrhosis (HCC) Biliary cirrhosis Preop examination- Primary Preoperative examination, unspecified Pain in right hip Pain in joint, pelvic region and thigh Essential hypertension Unspecified essential hypertension Primary biliary cirrhosis (HCC) Biliary cirrhosis Malignant neoplasm of left female breast, unspecified estrogen receptor status, unspecified site of breast (HCC) Total knee replacement status, left Pre-op evaluation- Primary Preoperative examination, unspecified 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, unspecified Primary biliary cirrhosis (HCC) Biliary cirrhosis Lumbar degenerative disc disease Degeneration of lumbar or lumbosacral intervertebral disc Class 1 obesity due to excess calories with serious comorbidity and body mass index (BMI) of 32.0 to 32.9 in adult Seroma of breast- Primary Post-operative state Other postprocedural status documented in this encounter [facility] note* Diagnosis Pre-operative examination- Primary Preoperative examination, unspecified History of radiation therapy Personal history of irradiation, presenting hazards to health Malignant neoplasm of left female breast, unspecified estrogen receptor status, unspecified site of breast (HCC) 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, unspecified Hypertension, unspecified type Primary biliary cirrhosis (HCC) Biliary cirrhosis Preop examination- Primary Preoperative examination, unspecified Pain in right hip Pain in joint, pelvic region and thigh Essential hypertension Unspecified essential hypertension Primary biliary cirrhosis (HCC) Biliary cirrhosis Malignant neoplasm of left female breast, unspecified estrogen receptor status, unspecified site of breast (HCC) Total knee replacement status, left Pre-op evaluation- Primary Preoperative examination, unspecified 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, unspecified Primary biliary cirrhosis (HCC) Biliary cirrhosis Lumbar degenerative disc disease Degeneration of lumbar or lumbosacral intervertebral disc Class 1 obesity due to excess calories with serious comorbidity and body mass index (BMI) of 32.0 to 32.9 in adult Palpitations- Primary documented in this encounter [facility] note* Diagnosis Pre-operative examination- Primary Preoperative examination, unspecified History of radiation therapy Personal history of irradiation, presenting hazards to health Malignant neoplasm of left female breast, unspecified estrogen receptor status, unspecified site of breast (HCC) 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, unspecified Hypertension, unspecified type Primary biliary cirrhosis (HCC) Biliary cirrhosis Preop examination- Primary Preoperative examination, unspecified Pain in right hip Pain in joint, pelvic region and thigh Essential hypertension Unspecified essential hypertension Primary biliary cirrhosis (HCC) Biliary cirrhosis Malignant neoplasm of left female breast, unspecified estrogen receptor status, unspecified site of breast (HCC) Total knee replacement status, left Pre-op evaluation- Primary Preoperative examination, unspecified 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, unspecified Primary biliary cirrhosis (HCC) Biliary cirrhosis Lumbar degenerative disc disease Degeneration of lumbar or lumbosacral intervertebral disc Class 1 obesity due to excess calories with serious comorbidity and body mass index (BMI) of 32.0 to 32.9 in adult Post-operative state- Primary Other postprocedural status History of breast cancer Personal history of malignant neoplasm of breast S/P breast reconstruction Breast replaced by other means Seroma of breast documented in this encounter [facility] note* Diagnosis Pre-operative examination- Primary Preoperative examination, unspecified History of radiation therapy Personal history of irradiation, presenting hazards to health Malignant neoplasm of left female breast, unspecified estrogen receptor status, unspecified site of breast (HCC) 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, unspecified Hypertension, unspecified type Primary biliary cirrhosis (HCC) Biliary cirrhosis Preop examination- Primary Preoperative examination, unspecified Pain in right hip Pain in joint, pelvic region and thigh Essential hypertension Unspecified essential hypertension Primary biliary cirrhosis (HCC) Biliary cirrhosis Malignant neoplasm of left female breast, unspecified estrogen receptor status, unspecified site of breast (HCC) Total knee replacement status, left Pre-op evaluation- Primary Preoperative examination, unspecified 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, unspecified Primary biliary cirrhosis (HCC) Biliary cirrhosis Lumbar degenerative disc disease Degeneration of lumbar or lumbosacral intervertebral disc Class 1 obesity due to excess calories with serious comorbidity and body mass index (BMI) of 32.0 to 32.9 in adult Type 2 diabetes mellitus without complication, unspecified 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 insulin use (HCC)- Primary documented in this encounter [facility] note* Diagnosis Pre-operative examination- Primary Preoperative examination, unspecified History of radiation therapy Personal history of irradiation, presenting hazards to health Malignant neoplasm of left female breast, unspecified estrogen receptor status, unspecified site of breast (HCC) 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, unspecified Hypertension, unspecified type Primary biliary cirrhosis (HCC) Biliary cirrhosis Preop examination- Primary Preoperative examination, unspecified Pain in right hip Pain in joint, pelvic region and thigh Essential hypertension Unspecified essential hypertension Primary biliary cirrhosis (HCC) Biliary cirrhosis Malignant neoplasm of left female breast, unspecified estrogen receptor status, unspecified site of breast (HCC) Total knee replacement status, left Pre-op evaluation- Primary Preoperative examination, unspecified 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, unspecified Primary biliary cirrhosis (HCC) Biliary cirrhosis Lumbar degenerative disc disease Degeneration of lumbar or lumbosacral intervertebral disc Class 1 obesity due to excess calories with serious comorbidity and body mass index (BMI) of 32.0 to 32.9 in adult Lymphedema of left arm- Primary History of breast cancer Personal history of malignant neoplasm of breast S/P breast reconstruction Breast replaced by other means Seroma of breast documented in this encounter [facility] note* Diagnosis Pre-operative examination- Primary Preoperative examination, unspecified History of radiation therapy Personal history of irradiation, presenting hazards to health Malignant neoplasm of left female breast, unspecified estrogen receptor status, unspecified site of breast (HCC) 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, unspecified Hypertension, unspecified type Primary biliary cirrhosis (HCC) Biliary cirrhosis Preop examination- Primary Preoperative examination, unspecified Pain in right hip Pain in joint, pelvic region and thigh Essential hypertension Unspecified essential hypertension Primary biliary cirrhosis (HCC) Biliary cirrhosis Malignant neoplasm of left female breast, unspecified estrogen receptor status, unspecified site of breast (HCC) Total knee replacement status, left Pre-op evaluation- Primary Preoperative examination, unspecified 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, unspecified Primary biliary cirrhosis (HCC) Biliary cirrhosis Lumbar degenerative disc disease Degeneration of lumbar or lumbosacral intervertebral disc Class 1 obesity due to excess calories with serious comorbidity and body mass index (BMI) of 32.0 to 32.9 in adult Lymphedema- Primary Other lymphedema documented in this encounter [facility] note* Diagnosis Pre-operative examination- Primary Preoperative examination, unspecified History of radiation therapy Personal history of irradiation, presenting hazards to health Malignant neoplasm of left female breast, unspecified estrogen receptor status, unspecified site of breast (HCC) 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, unspecified Hypertension, unspecified type Primary biliary cirrhosis (HCC) Biliary cirrhosis Preop examination- Primary Preoperative examination, unspecified Pain in right hip Pain in joint, pelvic region and thigh Essential hypertension Unspecified essential hypertension Primary biliary cirrhosis (HCC) Biliary cirrhosis Malignant neoplasm of left female breast, unspecified estrogen receptor status, unspecified site of breast (HCC) Total knee replacement status, left Pre-op evaluation- Primary Preoperative examination, unspecified 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, unspecified Primary biliary cirrhosis (HCC) Biliary cirrhosis Lumbar degenerative disc disease Degeneration of lumbar or lumbosacral intervertebral disc Class 1 obesity due to excess calories with serious comorbidity and body mass index (BMI) of 32.0 to 32.9 in adult UTI symptoms- Primary Other symptoms involving urinary system Complicated UTI (urinary tract infection) Urinary tract infection, site not specified documented in this encounter [facility] note* Diagnosis Pre-operative examination- Primary Preoperative examination, unspecified History of radiation therapy Personal history of irradiation, presenting hazards to health Malignant neoplasm of left female breast, unspecified estrogen receptor status, unspecified site of breast (HCC) 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, unspecified Hypertension, unspecified type Primary biliary cirrhosis (HCC) Biliary cirrhosis Preop examination- Primary Preoperative examination, unspecified Pain in right hip Pain in joint, pelvic region and thigh Essential hypertension Unspecified essential hypertension Primary biliary cirrhosis (HCC) Biliary cirrhosis Malignant neoplasm of left female breast, unspecified estrogen receptor status, unspecified site of breast (HCC) Total knee replacement status, left Pre-op evaluation- Primary Preoperative examination, unspecified 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, unspecified Primary biliary cirrhosis (HCC) Biliary cirrhosis Lumbar degenerative disc disease Degeneration of lumbar or lumbosacral intervertebral disc Class 1 obesity due to excess calories with serious comorbidity and body mass index (BMI) of 32.0 to 32.9 in adult Lymphedema of left arm- Primary documented in this encounter [facility] note* Diagnosis Pre-operative examination- Primary Preoperative examination, unspecified History of radiation therapy Personal history of irradiation, presenting hazards to health Malignant neoplasm of left female breast, unspecified estrogen receptor status, unspecified site of breast (HCC) 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, unspecified Hypertension, unspecified type Primary biliary cirrhosis (HCC) Biliary cirrhosis Preop examination- Primary Preoperative examination, unspecified Pain in right hip Pain in joint, pelvic region and thigh Essential hypertension Unspecified essential hypertension Primary biliary cirrhosis (HCC) Biliary cirrhosis Malignant neoplasm of left female breast, unspecified estrogen receptor status, unspecified site of breast (HCC) Total knee replacement status, left Pre-op evaluation- Primary Preoperative examination, unspecified 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, unspecified Primary biliary cirrhosis (HCC) Biliary cirrhosis Lumbar degenerative disc disease Degeneration of lumbar or lumbosacral intervertebral disc Class 1 obesity due to excess calories with serious comorbidity and body mass index (BMI) of 32.0 to 32.9 in adult Lymphedema- Primary Other lymphedema History of breast cancer Personal history of malignant neoplasm of breast S/P breast reconstruction Breast replaced by other means documented in this encounter [facility] note* Diagnosis Pre-operative examination- Primary Preoperative examination, unspecified History of radiation therapy Personal history of irradiation, presenting hazards to health Malignant neoplasm of left female breast, unspecified estrogen receptor status, unspecified site of breast (HCC) 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, unspecified Hypertension, unspecified type Primary biliary cirrhosis (HCC) Biliary cirrhosis Preop examination- Primary Preoperative examination, unspecified Pain in right hip Pain in joint, pelvic region and thigh Essential hypertension Unspecified essential hypertension Primary biliary cirrhosis (HCC) Biliary cirrhosis Malignant neoplasm of left female breast, unspecified estrogen receptor status, unspecified site of breast (HCC) Total knee replacement status, left Pre-op evaluation- Primary Preoperative examination, unspecified 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, unspecified Primary biliary cirrhosis (HCC) Biliary cirrhosis Lumbar degenerative disc disease Degeneration of lumbar or lumbosacral intervertebral disc Class 1 obesity due to excess calories with serious comorbidity and body mass index (BMI) of 32.0 to 32.9 in adult Type 2 diabetes mellitus without complication, unspecified whether fpc insulin use (HCC)- Primary documented in this encounter [facility] note* Diagnosis Pre-operative examination- Primary Preoperative examination, unspecified History of radiation therapy Personal history of irradiation, presenting hazards to health Malignant neoplasm of left female breast, unspecified estrogen receptor status, unspecified site of breast (HCC) 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, unspecified Hypertension, unspecified type Primary biliary cirrhosis (HCC) Biliary cirrhosis Preop examination- Primary Preoperative examination, unspecified Pain in right hip Pain in joint, pelvic region and thigh Essential hypertension Unspecified essential hypertension Primary biliary cirrhosis (HCC) Biliary cirrhosis Malignant neoplasm of left female breast, unspecified estrogen receptor status, unspecified site of breast (HCC) Total knee replacement status, left Pre-op evaluation- Primary Preoperative examination, unspecified 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, unspecified Primary biliary cirrhosis (HCC) Biliary cirrhosis Lumbar degenerative disc disease Degeneration of lumbar or lumbosacral intervertebral disc Class 1 obesity due to excess calories with serious comorbidity and body mass index (BMI) of 32.0 to 32.9 in adult Lymphedema of left arm- Primary documented in this encounter [facility] note* Diagnosis Pre-operative examination- Primary Preoperative examination, unspecified History of radiation therapy Personal history of irradiation, presenting hazards to health Malignant neoplasm of left female breast, unspecified estrogen receptor status, unspecified site of breast (HCC) 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, unspecified Hypertension, unspecified type Primary biliary cirrhosis (HCC) Biliary cirrhosis Preop examination- Primary Preoperative examination, unspecified Pain in right hip Pain in joint, pelvic region and thigh Essential hypertension Unspecified essential hypertension Primary biliary cirrhosis (HCC) Biliary cirrhosis Malignant neoplasm of left female breast, unspecified estrogen receptor status, unspecified site of breast (HCC) Total knee replacement status, left Pre-op evaluation- Primary Preoperative examination, unspecified 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, unspecified Primary biliary cirrhosis (HCC) Biliary cirrhosis Lumbar degenerative disc disease Degeneration of lumbar or lumbosacral intervertebral disc Class 1 obesity due to excess calories with serious comorbidity and body mass index (BMI) of 32.0 to 32.9 in adult Urinary frequency- Primary Renal insufficiency Unspecified disorder of kidney and ureter Urinary tract infection with hematuria, site unspecified Glucosuria Glycosuria Type 2 diabetes mellitus without complication, with long-term current use of insulin (HCC) [facility] Diagnosis Pre-operative examination- Primary Preoperative examination, unspecified History of radiation therapy Personal history of irradiation, presenting hazards to health Malignant neoplasm of left female breast, unspecified estrogen receptor status, unspecified site of breast (HCC) 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, unspecified Hypertension, unspecified type Primary biliary cirrhosis (HCC) Biliary cirrhosis Preop examination- Primary Preoperative examination, unspecified Pain in right hip Pain in joint, pelvic region and thigh Essential hypertension Unspecified essential hypertension Primary biliary cirrhosis (HCC) Biliary cirrhosis Malignant neoplasm of left female breast, unspecified estrogen receptor status, unspecified site of breast (HCC) Total knee replacement status, left Pre-op evaluation- Primary Preoperative examination, unspecified 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, unspecified Primary biliary cirrhosis (HCC) Biliary cirrhosis Lumbar degenerative disc disease Degeneration of lumbar or lumbosacral intervertebral disc Class 1 obesity due to excess calories with serious comorbidity and body mass index (BMI) of 32.0 to 32.9 in adult Acute renal insufficiency Unspecified disorder of kidney and ureter Other [facility] Pre[facility] examination- Primary Preoperative examination, unspecified History of radiation therapy Personal history of irradiation, presenting hazards to health Malignant neoplasm of left female breast, unspecified estrogen receptor status, unspecified site of breast (HCC) 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, unspecified Hypertension, unspecified type Primary biliary cirrhosis (HCC) Biliary cirrhosis Preop examination- Primary Preoperative examination, unspecified Pain in right hip Pain in joint, pelvic region and thigh Essential hypertension Unspecified essential hypertension Primary biliary cirrhosis (HCC) Biliary cirrhosis Malignant neoplasm of left female breast, unspecified estrogen receptor status, unspecified site of breast (HCC) Total knee replacement status, left Pre-op evaluation- Primary Preoperative examination, unspecified 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, unspecified Primary biliary cirrhosis (HCC) Biliary cirrhosis Lumbar degenerative disc disease Degeneration of lumbar or lumbosacral intervertebral disc Class 1 obesity due to excess calories with serious comorbidity and body mass index (BMI) of 32.0 to 32.9 in adult Acute renal insufficiency- Primary Unspecified disorder of kidney and ureter documented in this encounter [facility] note* Diagnosis Pre-operative examination- Primary Preoperative examination, unspecified History of radiation therapy Personal history of irradiation, presenting hazards to health Malignant neoplasm of left female breast, unspecified estrogen receptor status, unspecified site of breast (HCC) 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, unspecified Hypertension, unspecified type Primary biliary cirrhosis (HCC) Biliary cirrhosis Preop examination- Primary Preoperative examination, unspecified Pain in right hip Pain in joint, pelvic region and thigh Essential hypertension Unspecified essential hypertension Primary biliary cirrhosis (HCC) Biliary cirrhosis Malignant neoplasm of left female breast, unspecified estrogen receptor status, unspecified site of breast (HCC) Total knee replacement status, left Pre-op evaluation- Primary Preoperative examination, unspecified 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, unspecified Primary biliary cirrhosis (HCC) Biliary cirrhosis Lumbar degenerative disc disease Degeneration of lumbar or lumbosacral intervertebral disc Class 1 obesity due to excess calories with serious comorbidity and body mass index (BMI) of 32.0 to 32.9 in adult Lymphedema of left arm- Primary documented in this encounter [facility] note* Diagnosis Pre-operative examination- Primary Preoperative examination, unspecified History of radiation therapy Personal history of irradiation, presenting hazards to health Malignant neoplasm of left female breast, unspecified estrogen receptor status, unspecified site of breast (HCC) 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, unspecified Hypertension, unspecified type Primary biliary cirrhosis (HCC) Biliary cirrhosis Preop examination- Primary Preoperative examination, unspecified Pain in right hip Pain in joint, pelvic region and thigh Essential hypertension Unspecified essential hypertension Primary biliary cirrhosis (HCC) Biliary cirrhosis Malignant neoplasm of left female breast, unspecified estrogen receptor status, unspecified site of breast (HCC) Total knee replacement status, left Pre-op evaluation- Primary Preoperative examination, unspecified 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, unspecified Primary biliary cirrhosis (HCC) Biliary cirrhosis Lumbar degenerative disc disease Degeneration of lumbar or lumbosacral intervertebral disc Class 1 obesity due to excess calories with serious comorbidity and body mass index (BMI) of 32.0 to 32.9 in adult Renal insufficiency- Primary Unspecified disorder of kidney and ureter Urinary tract infection with hematuria, site unspecified documented in this encounter [facility] note* Diagnosis Pre-operative examination- Primary Preoperative examination, unspecified History of radiation therapy Personal history of irradiation, presenting hazards to health Malignant neoplasm of left female breast, unspecified estrogen receptor status, unspecified site of breast (HCC) 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, unspecified Hypertension, unspecified type Primary biliary cirrhosis (HCC) Biliary cirrhosis Preop examination- Primary Preoperative examination, unspecified Pain in right hip Pain in joint, pelvic region and thigh Essential hypertension Unspecified essential hypertension Primary biliary cirrhosis (HCC) Biliary cirrhosis Malignant neoplasm of left female breast, unspecified estrogen receptor status, unspecified site of breast (HCC) Total knee replacement status, left Pre-op evaluation- Primary Preoperative examination, unspecified 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, unspecified Primary biliary cirrhosis (HCC) Biliary cirrhosis Lumbar degenerative disc disease Degeneration of lumbar or lumbosacral intervertebral disc Class 1 obesity due to excess calories with serious comorbidity and body mass index (BMI) of 32.0 to 32.9 in adult Type 2 diabetes mellitus without complication, unspecified 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 insulin use (HCC)- Primary Diabetes mellitus treated with insulin (HCC)- Primary documented in this encounter [facility] note* Diagnosis Pre-operative examination- Primary Preoperative examination, unspecified History of radiation therapy Personal history of irradiation, presenting hazards to health Malignant neoplasm of left female breast, unspecified estrogen receptor status, unspecified site of breast (HCC) 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, unspecified Hypertension, unspecified type Primary biliary cirrhosis (HCC) Biliary cirrhosis Preop examination- Primary Preoperative examination, unspecified Pain in right hip Pain in joint, pelvic region and thigh Essential hypertension Unspecified essential hypertension Primary biliary cirrhosis (HCC) Biliary cirrhosis Malignant neoplasm of left female breast, unspecified estrogen receptor status, unspecified site of breast (HCC) Total knee replacement status, left Pre-op evaluation- Primary Preoperative examination, unspecified 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, unspecified Primary biliary cirrhosis (HCC) Biliary cirrhosis Lumbar degenerative disc disease Degeneration of lumbar or lumbosacral intervertebral disc Class 1 obesity due to excess calories with serious comorbidity and body mass index (BMI) of 32.0 to 32.9 in adult Lymphedema of left arm- Primary Diabetes mellitus treated with insulin (HCC)- Primary documented in this encounter [facility] note* Diagnosis Pre-operative examination- Primary Preoperative examination, unspecified History of radiation therapy Personal history of irradiation, presenting hazards to health Malignant neoplasm of left female breast, unspecified estrogen receptor status, unspecified site of breast (HCC) 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, unspecified Hypertension, unspecified type Primary biliary cirrhosis (HCC) Biliary cirrhosis Preop examination- Primary Preoperative examination, unspecified Pain in right hip Pain in joint, pelvic region and thigh Essential hypertension Unspecified essential hypertension Primary biliary cirrhosis (HCC) Biliary cirrhosis Malignant neoplasm of left female breast, unspecified estrogen receptor status, unspecified site of breast (HCC) Total knee replacement status, left Pre-op evaluation- Primary Preoperative examination, unspecified 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, unspecified Primary biliary cirrhosis (HCC) Biliary cirrhosis Lumbar degenerative disc disease Degeneration of lumbar or lumbosacral intervertebral disc Class 1 obesity due to excess calories with serious comorbidity and body mass index (BMI) of 32.0 to 32.9 in adult Lymphedema of left arm- Primary Diabetes mellitus treated with insulin (HCC)- Primary documented in this encounter [facility] note* Diagnosis Pre-operative examination- Primary Preoperative examination, unspecified History of radiation therapy Personal history of irradiation, presenting hazards to health Malignant neoplasm of left female breast, unspecified estrogen receptor status, unspecified site of breast (HCC) 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, unspecified Hypertension, unspecified type Primary biliary cirrhosis (HCC) Biliary cirrhosis Preop examination- Primary Preoperative examination, unspecified Pain in right hip Pain in joint, pelvic region and thigh Essential hypertension Unspecified essential hypertension Primary biliary cirrhosis (HCC) Biliary cirrhosis Malignant neoplasm of left female breast, unspecified estrogen receptor status, unspecified site of breast (HCC) Total knee replacement status, left Pre-op evaluation- Primary Preoperative examination, unspecified 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, unspecified Primary biliary cirrhosis (HCC) Biliary cirrhosis Lumbar degenerative disc disease Degeneration of lumbar or lumbosacral intervertebral disc Class 1 obesity due to excess calories with serious comorbidity and body mass index (BMI) of 32.0 to 32.9 in adult Urinary tract infection with hematuria, site unspecified- Primary Lymphedema of left arm Cellulitis of left upper extremity Cellulitis and abscess of upper arm and forearm Diabetes mellitus treated with insulin (HCC)- Primary documented in this encounter [facility] note* Diagnosis Pre-operative examination- Primary Preoperative examination, unspecified History of radiation therapy Personal history of irradiation, presenting hazards to health Malignant neoplasm of left female breast, unspecified estrogen receptor status, unspecified site of breast (HCC) 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, unspecified Hypertension, unspecified type Primary biliary cirrhosis (HCC) Biliary cirrhosis Preop examination- Primary Preoperative examination, unspecified Pain in right hip Pain in joint, pelvic region and thigh Essential hypertension Unspecified essential hypertension Primary biliary cirrhosis (HCC) Biliary cirrhosis Malignant neoplasm of left female breast, unspecified estrogen receptor status, unspecified site of breast (HCC) Total knee replacement status, left Pre-op evaluation- Primary Preoperative examination, unspecified 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, unspecified Primary biliary cirrhosis (HCC) Biliary cirrhosis Lumbar degenerative disc disease Degeneration of lumbar or lumbosacral intervertebral disc Class 1 obesity due to excess calories with serious comorbidity and body mass index (BMI) of 32.0 to 32.9 in adult Diabetes mellitus treated with insulin (HCC)- Primary documented in this encounter [facility] note* Diagnosis Pre-operative examination- Primary Preoperative examination, unspecified History of radiation therapy Personal history of irradiation, presenting hazards to health Malignant neoplasm of left female breast, unspecified estrogen receptor status, unspecified site of breast (HCC) 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, unspecified Hypertension, unspecified type Primary biliary cirrhosis (HCC) Biliary cirrhosis Preop examination- Primary Preoperative examination, unspecified Pain in right hip Pain in joint, pelvic region and thigh Essential hypertension Unspecified essential hypertension Primary biliary cirrhosis (HCC) Biliary cirrhosis Malignant neoplasm of left female breast, unspecified estrogen receptor status, unspecified site of breast (HCC) Total knee replacement status, left Pre-op evaluation- Primary Preoperative examination, unspecified 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, unspecified Primary biliary cirrhosis (HCC) Biliary cirrhosis Lumbar degenerative disc disease Degeneration of lumbar or lumbosacral intervertebral disc Class 1 obesity due to excess calories with serious comorbidity and body mass index (BMI) of 32.0 to 32.9 in adult History of breast reconstruction- Primary Breast replaced by other means History of breast cancer Personal history of malignant neoplasm of breast Lymphedema Other lymphedema Cellulitis of left upper limb documented in this encounter [facility] note* Diagnosis Pre-operative examination- Primary Preoperative examination, unspecified History of radiation therapy Personal history of irradiation, presenting hazards to health Malignant neoplasm of left female breast, unspecified estrogen receptor status, unspecified site of breast (HCC) 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, unspecified Hypertension, unspecified type Primary biliary cirrhosis (HCC) Biliary cirrhosis Preop examination- Primary Preoperative examination, unspecified Pain in right hip Pain in joint, pelvic region and thigh Essential hypertension Unspecified essential hypertension Primary biliary cirrhosis (HCC) Biliary cirrhosis Malignant neoplasm of left female breast, unspecified estrogen receptor status, unspecified site of breast (HCC) Total knee replacement status, left Pre-op evaluation- Primary Preoperative examination, unspecified 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, unspecified Primary biliary cirrhosis (HCC) Biliary cirrhosis Lumbar degenerative disc disease Degeneration of lumbar or lumbosacral intervertebral disc Class 1 obesity due to excess calories with serious comorbidity and body mass index (BMI) of 32.0 to 32.9 in adult Lymphedema of left arm- Primary documented in this encounter [facility] note* Diagnosis Pre-operative examination- Primary Preoperative examination, unspecified History of radiation therapy Personal history of irradiation, presenting hazards to health Malignant neoplasm of left female breast, unspecified estrogen receptor status, unspecified site of breast (HCC) 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, unspecified Hypertension, unspecified type Primary biliary cirrhosis (HCC) Biliary cirrhosis Preop examination- Primary Preoperative examination, unspecified Pain in right hip Pain in joint, pelvic region and thigh Essential hypertension Unspecified essential hypertension Primary biliary cirrhosis (HCC) Biliary cirrhosis Malignant neoplasm of left female breast, unspecified estrogen receptor status, unspecified site of breast (HCC) Total knee replacement status, left Pre-op evaluation- Primary Preoperative examination, unspecified 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, unspecified Primary biliary cirrhosis (HCC) Biliary cirrhosis Lumbar degenerative disc disease Degeneration of lumbar or lumbosacral intervertebral disc Class 1 obesity due to excess calories with serious comorbidity and body mass index (BMI) of 32.0 to 32.9 in adult Lymphedema of left arm- Primary documented in this encounter [facility] note* Diagnosis Pre-operative examination- Primary Preoperative examination, unspecified History of radiation therapy Personal history of irradiation, presenting hazards to health Malignant neoplasm of left female breast, unspecified estrogen receptor status, unspecified site of breast (HCC) 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, unspecified Hypertension, unspecified type Primary biliary cirrhosis (HCC) Biliary cirrhosis Preop examination- Primary Preoperative examination, unspecified Pain in right hip Pain in joint, pelvic region and thigh Essential hypertension Unspecified essential hypertension Primary biliary cirrhosis (HCC) Biliary cirrhosis Malignant neoplasm of left female breast, unspecified estrogen receptor status, unspecified site of breast (HCC) Total knee replacement status, left Pre-op evaluation- Primary Preoperative examination, unspecified 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, unspecified Primary biliary cirrhosis (HCC) Biliary cirrhosis Lumbar degenerative disc disease Degeneration of lumbar or lumbosacral intervertebral disc Class 1 obesity due to excess calories with serious comorbidity and body mass index (BMI) of 32.0 to 32.9 in adult Lymphedema of left arm- Primary documented in this encounter [facility] note* Diagnosis Pre-operative examination- Primary Preoperative examination, unspecified History of radiation therapy Personal history of irradiation, presenting hazards to health Malignant neoplasm of left female breast, unspecified estrogen receptor status, unspecified site of breast (HCC) 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, unspecified Hypertension, unspecified type Primary biliary cirrhosis (HCC) Biliary cirrhosis Preop examination- Primary Preoperative examination, unspecified Pain in right hip Pain in joint, pelvic region and thigh Essential hypertension Unspecified essential hypertension Primary biliary cirrhosis (HCC) Biliary cirrhosis Malignant neoplasm of left female breast, unspecified estrogen receptor status, unspecified site of breast (HCC) Total knee replacement status, left Pre-op evaluation- Primary Preoperative examination, unspecified 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, unspecified Primary biliary cirrhosis (HCC) Biliary cirrhosis Lumbar degenerative disc disease Degeneration of lumbar or lumbosacral intervertebral disc Class 1 obesity due to excess calories with serious comorbidity and body mass index (BMI) of 32.0 to 32.9 in adult Lymphedema of left arm- Primary Urinary tract infection with hematuria, site unspecified Renal insufficiency Unspecified disorder of kidney and ureter documented in this encounter [facility] note* Diagnosis Pre-operative examination- Primary Preoperative examination, unspecified History of radiation therapy Personal history of irradiation, presenting hazards to health Malignant neoplasm of left female breast, unspecified estrogen receptor status, unspecified site of breast (HCC) 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, unspecified Hypertension, unspecified type Primary biliary cirrhosis (HCC) Biliary cirrhosis Preop examination- Primary Preoperative examination, unspecified Pain in right hip Pain in joint, pelvic region and thigh Essential hypertension Unspecified essential hypertension Primary biliary cirrhosis (HCC) Biliary cirrhosis Malignant neoplasm of left female breast, unspecified estrogen receptor status, unspecified site of breast (HCC) Total knee replacement status, left Pre-op evaluation- Primary Preoperative examination, unspecified 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, unspecified Primary biliary cirrhosis (HCC) Biliary cirrhosis Lumbar degenerative disc disease Degeneration of lumbar or lumbosacral intervertebral disc Class 1 obesity due to excess calories with serious comorbidity and body mass index (BMI) of 32.0 to 32.9 in adult Malignant neoplasm of left breast in female, estrogen receptor positive, unspecified site of breast (HCC) 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 documented in this encounter [facility] note* Diagnosis Pre-operative examination- Primary Preoperative examination, unspecified History of radiation therapy Personal history of irradiation, presenting hazards to health Malignant neoplasm of left female breast, unspecified estrogen receptor status, unspecified site of breast (HCC) 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, unspecified Hypertension, unspecified type Primary biliary cirrhosis (HCC) Biliary cirrhosis Preop examination- Primary Preoperative examination, unspecified Pain in right hip Pain in joint, pelvic region and thigh Essential hypertension Unspecified essential hypertension Primary biliary cirrhosis (HCC) Biliary cirrhosis Malignant neoplasm of left female breast, unspecified estrogen receptor status, unspecified site of breast (HCC) Total knee replacement status, left Pre-op evaluation- Primary Preoperative examination, unspecified 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, unspecified Primary biliary cirrhosis (HCC) Biliary cirrhosis Lumbar degenerative disc disease Degeneration of lumbar or lumbosacral intervertebral disc Class 1 obesity due to excess calories with serious comorbidity and body mass index (BMI) of 32.0 to 32.9 in adult Lymphedema of left arm- Primary documented in this encounter [facility] note* Diagnosis Pre-operative examination- Primary Preoperative examination, unspecified History of radiation therapy Personal history of irradiation, presenting hazards to health Malignant neoplasm of left female breast, unspecified estrogen receptor status, unspecified site of breast (HCC) 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, unspecified Hypertension, unspecified type Primary biliary cirrhosis (HCC) Biliary cirrhosis Preop examination- Primary Preoperative examination, unspecified Pain in right hip Pain in joint, pelvic region and thigh Essential hypertension Unspecified essential hypertension Primary biliary cirrhosis (HCC) Biliary cirrhosis Malignant neoplasm of left female breast, unspecified estrogen receptor status, unspecified site of breast (HCC) Total knee replacement status, left Pre-op evaluation- Primary Preoperative examination, unspecified 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, unspecified Primary biliary cirrhosis (HCC) Biliary cirrhosis Lumbar degenerative disc disease Degeneration of lumbar or lumbosacral intervertebral disc Class 1 obesity due to excess calories with serious comorbidity and body mass index (BMI) of 32.0 to 32.9 in adult Malignant neoplasm of left breast in female, estrogen receptor positive, unspecified site of breast (HCC)- Primary 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, unspecified Lymphedema of left arm Malignant neoplasm of female breast, unspecified estrogen receptor status, unspecified laterality, unspecified site of breast (HCC[facility] Onset Date Resolution Status Admit Date 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, 2024 11:07am Hyperlipemia, mixed acute November 02, 2024 11:07am HTN (hypertension) chronic October [id number] 11:07am [facility] Work Phone: Evaluation note* Diagnosis Pre-operative examination- Primary Preoperative examination, unspecified History of radiation therapy Personal history of irradiation, presenting hazards to health Malignant neoplasm of left female breast, unspecified estrogen receptor status, unspecified site of breast (HCC) 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, unspecified Hypertension, unspecified type Primary biliary cirrhosis (HCC) Biliary cirrhosis Preop examination- Primary Preoperative examination, unspecified Pain in right hip Pain in joint, pelvic region and thigh Essential hypertension Unspecified essential hypertension Primary biliary cirrhosis (HCC) Biliary cirrhosis Malignant neoplasm of left female breast, unspecified estrogen receptor status, unspecified site of breast (HCC) Total knee replacement status, left Pre-op evaluation- Primary Preoperative examination, unspecified 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, unspecified Primary biliary cirrhosis (HCC) Biliary cirrhosis Lumbar degenerative disc disease Degeneration of lumbar or lumbosacral intervertebral disc Class 1 obesity due to excess calories with serious comorbidity and body mass index (BMI) of 32.0 to 32.9 in adult Lymphedema of left arm- Primary documented in this encounter [facility] note* Diagnosis Pre-operative examination- Primary Preoperative examination, unspecified History of radiation therapy Personal history of irradiation, presenting hazards to health Malignant neoplasm of left female breast, unspecified estrogen receptor status, unspecified site of breast (HCC) 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, unspecified Hypertension, unspecified type Primary biliary cirrhosis (HCC) Biliary cirrhosis Preop examination- Primary Preoperative examination, unspecified Pain in right hip Pain in joint, pelvic region and thigh Essential hypertension Unspecified essential hypertension Primary biliary cirrhosis (HCC) Biliary cirrhosis Malignant neoplasm of left female breast, unspecified estrogen receptor status, unspecified site of breast (HCC) Total knee replacement status, left Pre-op evaluation- Primary Preoperative examination, unspecified 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, unspecified Primary biliary cirrhosis (HCC) Biliary cirrhosis Lumbar degenerative disc disease Degeneration of lumbar or lumbosacral intervertebral disc Class 1 obesity due to excess calories with serious comorbidity and body mass index (BMI) of 32.0 to 32.9 in adult Diabetes mellitus treated with injections of non-insulin medication (HCC)- Primary documented in this encounter [facility] note* Diagnosis Pre-operative examination- Primary Preoperative examination, unspecified History of radiation therapy Personal history of irradiation, presenting hazards to health Malignant neoplasm of left female breast, unspecified estrogen receptor status, unspecified site of breast (HCC) 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, unspecified Hypertension, unspecified type Primary biliary cirrhosis (HCC) Biliary cirrhosis Preop examination- Primary Preoperative examination, unspecified Pain in right hip Pain in joint, pelvic region and thigh Essential hypertension Unspecified essential hypertension Primary biliary cirrhosis (HCC) Biliary cirrhosis Malignant neoplasm of left female breast, unspecified estrogen receptor status, unspecified site of breast (HCC) Total knee replacement status, left Pre-op evaluation- Primary Preoperative examination, unspecified 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, unspecified Primary biliary cirrhosis (HCC) Biliary cirrhosis Lumbar degenerative disc disease Degeneration of lumbar or lumbosacral intervertebral disc Class 1 obesity due to excess calories with serious comorbidity and body mass index (BMI) of 32.0 to 32.9 in adult Lymphedema of left arm- Primary documented in this encounter [facility] note* Diagnosis Pre-operative examination- Primary Preoperative examination, unspecified History of radiation therapy Personal history of irradiation, presenting hazards to health Malignant neoplasm of left female breast, unspecified estrogen receptor status, unspecified site of breast (HCC) 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, unspecified Hypertension, unspecified type Primary biliary cirrhosis (HCC) Biliary cirrhosis Preop examination- Primary Preoperative examination, unspecified Pain in right hip Pain in joint, pelvic region and thigh Essential hypertension Unspecified essential hypertension Primary biliary cirrhosis (HCC) Biliary cirrhosis Malignant neoplasm of left female breast, unspecified estrogen receptor status, unspecified site of breast (HCC) Total knee replacement status, left Pre-op evaluation- Primary Preoperative examination, unspecified 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, unspecified Primary biliary cirrhosis (HCC) Biliary cirrhosis Lumbar degenerative disc disease Degeneration of lumbar or lumbosacral intervertebral disc Class 1 obesity due to excess calories with serious comorbidity and body mass index (BMI) of 32.0 to 32.9 in adult Malignant neoplasm of left breast in female, estrogen receptor positive, unspecified site of breast (HCC)- Primary 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) Malignant neoplasm of lower-outer quadrant of left breast of female, estrogen receptor positive (HCC) 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 documented in this encounter [facility] for referral (narrative)* Diagnostic Procedure Only (Routine) - Authorized Specialty Diagnoses / Procedures Referred By Contac t Referred To Contact BR IMAGING Diagnoses Malignant neoplasm of lower-outer quadrant of left breast of female, estrogen receptor positive (HCC) Procedures US BREAST LTD LEFT US BREAST UNI REAL [place] [address] [place] [address] [facility] [address] [place] [phone] Referral ID Status Reason Start Date Expiration Date Visits Requested Visits Authorized [id number] Authorized Auto-Generat ed Referral 07/04/2022 08/03/2023 1 1 [facility] for referral (narrative)* Diagnostic Procedure Only (Routine) - Pending Review Specialty Diagnoses / Procedures Referred By Contac t Referred To Contact BR IMAGING Diagnoses Abnormal ultrasound of breast Procedures US BIOPSY BREAST LEFT BX BREAST W/DEVICE 1ST LESION ULTRASOUND GUID Chaz Birmingham MD [address] [place] [address] [facility] [address] [place] [phone] Referral ID Status Reason Start Date Expiration Date Visits Requested Visits Authorized [id number] Pending Review Auto-Generat ed Referral 07/19/2022 08/18/2023 1 1 T [facility] for referral (narrative)* Outpatient Procedure (Urgent) - Pending Review Specialty Diagnoses / Procedures [facility] Diagnoses Adenopathy Procedures ECG COMPLETE ECG ROUTINE ECG W/LEAST 12 LDS W/I&R Kam Dangelo MD [address] [place] [address] [address] Referral ID Status Reason Start Date Expiration Date Visits Requested Visits Authorized [id number] Pending Review Auto-Generat ed Referral 08/06/2022 08/06/2023 1 1 T [facility] for referral (narrative)* Outpatient Procedure (Routine) - Pending Review Specialty Diagnoses / Procedures [facility] To Contact [facility] Diagnoses Malignant neoplasm of lower-outer quadrant of left breast of female, estrogen receptor positive (HCC) 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) Procedures ECG COMPLETE ECG ROUTINE ECG W/LEAST 12 LDS W/I&R Serena Carrasco DO [address] [place] [address] [facility] [address] [place] [address] Referral ID Status Reason Start Date Expiration Date Visits Requested Visits Authorized [id number] Pending Review Auto-Generat ed Referral 11/01/2022 11/01/2023 1 1 [facility] for referral (narrative)* Outpatient Procedure (Routine) - Authorized Specialty Diagnoses / Procedures Referred By Parmjit cabrera Referred [facility] Diagnoses 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) Procedures ECG COMPLETE ECG ROUTINE ECG W/LEAST 12 LDS W/I&R Serena Carrasco DO [address] [place] [address] [facility] [address] [place] [address] Referral ID Status Reason Start Date Expiration Date Visits Requested Visits Authorized [id number] Authorized Auto-Generat ed Referral 11/28/2022 11/28/2023 2 2 [facility] for referral (narrative)* Diagnostic Procedure Only (Routine) - Authorized Specialty Diagnoses / Procedures Referred By Parmjit t Referred To Contact [facility] Diagnoses Malignant neoplasm of left breast in female, estrogen receptor positive, unspecified site of breast (HCC) Malignant neoplasm of lower-outer quadrant of left breast of female, estrogen receptor positive (HCC) 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) Procedures NM PET/CT SKULL-THIGH SUBSEQUENT PET IMAGING CT ATTENUATION SKULL BASE MID-THIGH Kassy Raman, FELICIA.PLATEN GRINDER [address] [place] [address] [facility] [address] [place] [address] Referral ID Status Reason Start Date Expiration Date Visits Requested Visits Authorized [id number] Authorized Auto-Generat ed Referral 3 02/13/2023 1 1 [facility] for referral (narrative)* Diagnostic Procedure Only (Routine) - Closed Specialty Diagnoses / Procedures Referred By Parmjit cabrera Referred To Contact [facility] Diagnoses Malignant neoplasm of left breast in female, estrogen receptor positive, unspecified site of breast (HCC) Malignant neoplasm of lower-outer quadrant of left breast of female, estrogen receptor positive (HCC) 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) Procedures NM PET/CT SKULL-THIGH SUBSEQUENT PET IMAGING CT ATTENUATION SKULL BASE MID-THIGH Kassy Raman APRN.PLATEN GRINDER [address] [place] [address] [facility] [address] [place] [address] Referral ID Status Reason Start Date Expiration Date V isits Requested Visits Authorized [id number] Closed Auto-Generate d Referral 01/15/2023 02/13/2023 1 1 [facility] for referral (narrative)* Diagnostic Procedure Only (Routine) - Pending Review Specialty Diagnoses / Procedures Referred By Parmjit cabrera Referred To Contact XR IMAGING Diagnoses Malignant neoplasm of lower-outer quadrant of left breast of female, estrogen receptor positive (HCC) 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) Abnormal positron emission tomography (PET) scan Procedures XR THORACIC LIMITED 2V AP/LAT RADEX SPINE THORACIC 2 VIEWS Kassy Raman APRN.PLATEN GRINDER [address] [place] [address] [facility] [place] [address] Referral ID Status Reason Start Date Expiration Date Visits Requested Visits Authorized [id number] Pending Review Auto-Generat ed Referral 3 02/28/2024 1 1 [facility] for referral (narrative)* Diagnostic Procedure Only (Routine) - Authorized Specialty Diagnoses / Procedures Referred By Parmjit t Referred To Contact [facility] Diagnoses Malignant neoplasm of lower-outer quadrant of left breast of female, estrogen receptor positive (HCC) Procedures NM PET/CT SKULL-THIGH SUBSEQUENT PET IMAGING CT ATTENUATION SKULL BASE MID-THIGH Serena Carrasco DO [address] [place] [address] [facility] [address] [place] [address] Referral ID Status Reason Start Date Expiration Date Visits Requested Visits Authorized [id number] Authorized Auto-Generat ed Referral 08/05/2023 09/03/2023 2 2 * Outpatient Procedure (Routine) - Authorized Specialty Diagnoses / Procedures Referred By Parmjit cabrera Referred To [facility] Diagnoses Chemotherapy-induced cardiomyopathy (HCC) Encounter for monitoring cardiotoxic drug therapy Procedures ECHO ECHO TTHRC R-T 2D W/WOM-MODE COMPL SPEC&COLR D Serena Carrasco DO [address] [place] [address] [facility] [address] [place] [address] Referral ID Status Reason Start Date Expiration Date Visits Requested Visits Authorized [id number] Authorized Auto-Generat ed Referral 08/05/2023 08/04/2024 1 1 [facility] for referral (narrative)* Diagnostic Procedure Only (Routine) - Additional Clinical Info Needed Specialty Diagnoses / Procedures Referred By Parmjit cabrera Referred To Contact [facility]CULAR [facility] FUNCTIONAL [facility]AGING Diagnoses 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) Procedures NM PET/CT SKULL-THIGH SUBSEQUENT PET IMAGING CT ATTENUATION SKULL BASE MID-THIGH Serena Carrasco DO [address] [place] [address] [facility] [address] [place] [address] Referral ID Status Reason Start Date Expiration Date Visits Requested Visits Authorized [id number] Additional Clinical Info Needed Auto-Generat ed Referral 11/11/2023 12/10/2024 1 1 [facility] for referral (narrative)* Diagnostic Procedure Only (Routine) - Authorized Specialty Diagnoses / Procedures Referred By Contac t Referred To Contact US IMAGING Diagnoses Right upper quadrant pain Procedures US ABD RIGHT UPPER QUADRANT US ABDOMINAL REAL TIME W/IMAGE LIMITED Serena Carrasco, DO [address] [place] [address] [facility] [place] [address] Referral ID Status Reason Start Date Expiration Date Visits Requested Visits Authorized [id number] Authorized Auto-Generat ed Referral 11/13/2023 12/12/2024 1 1 [facility] for referral (narrative)* Diagnostic Procedure Only (Routine) - Closed Specialty Diagnoses / Procedures Referred By Contac t Referred To Contact [facility] Diagnoses 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) Procedures NM PET/CT SKULL-THIGH SUBSEQUENT PET IMAGING CT ATTENUATION SKULL BASE MID-THIGH Serena Carrasco, DO [address] [place] [address] [facility] [address] [place] [address] Referral ID Status Reason Start Date Expiration Date V isits Requested Visits Authorized [id number] Closed Auto-Generate d Referral 12/13/2023 01/11/2024 1 1 [facility] for referral (narrative)* Diagnostic Procedure Only (Routine) - Closed Specialty Diagnoses / Procedures Referred By Contac t Referred To Contact XR IMAGING Diagnoses Right hip pain Procedures XR PELVIS 1V AP RADIOLOGIC EXAMINATION PELVIS 1/2 VIEWS Subhash Avila PA-C [address] [place] [address] [facility] [address] Referral ID Status Reason Start Date Expiration Date V isits Requested Visits Authorized [id number] Closed Auto-Generate d Referral 03/20/2022 04/19/2023 1 1 [facility] for referral (narrative)* Diagnostic Procedure Only (Routine) - Pending Review Specialty Diagnoses / Procedures Referred By Contac t Referred To Contact [facility] Diagnoses Malignant neoplasm of overlapping sites of left breast in female, estrogen receptor positive (HCC) 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) Malignant neoplasm of lower-outer quadrant of left breast of female, estrogen receptor positive (HCC) Procedures NM PET/CT SKULL-THIGH SUBSEQUENT PET IMAGING CT ATTENUATION SKULL BASE MID-THIGH Serena Carrasco DO [address] [facility] [place] [address] [facility] [address] [place] [address] Referral ID Status Reason Start Date Expiration Date Visits Requested Visits Authorized [id number] Pending Review Auto-Generat ed Referral 01/06/2024 02/04/2025 1 1 * Consult, Test, Treat (Routine) - Authorized Specialty Diagnoses / Procedures Referred By Contclaudia t Referred To Contact Endocrinology Diagnoses Type 2 diabetes mellitus with other specified complication, without long-term current use of insulin (HCC) Procedures CONSULT TO ENDOCRINOLOGY OFFICE/OUTPATIENT [facility] 60 MINUTES Serena Carrasco DO [address] [facility] [place] [place] [address] Referral ID Status Reason Start Date Expiration Date Visits Requested Visits Authorized [id number] Authorized PCP Requested Referral 01/06/2024 01/05/2025 1 1 [facility] for referral (narrative)* Diagnostic Procedure Only (Routine) - Closed Specialty Diagnoses / Procedures Referred By Contac t Referred To Contact XR IMAGING Diagnoses Pain in right hip Procedures XR HIP 2V AP/LAT RIGHT (AK,FL,ME,UN) RADEX HIP UNILATERAL WITH PELVIS 2-3 VIEWS Subhash Avila PA-C [address] [place] [address] [place] [address] Referral ID Status Reason Start Date Expiration Date V isits Requested Visits Authorized [id number] Closed Auto-Generate d Referral 01/03/2024 02/01/2025 1 1 [facility] for referral (narrative)* Diagnostic Procedure Only (Routine) - New Request Specialty Diagnoses / Procedures Referred By Contac t Referred To Contact BR IMAG[facility] Diagnoses Malignant neoplasm of lower-outer quadrant of left breast of female, estrogen receptor positive (HCC) Procedures SAMANTHA DIAGNOSTIC RIGHT DIAGNOSTIC MAMMOGRAPHY COMPUTER-[place] [address] [place] [address] [facility] [address] [place] [address] Referral ID Status Reason Start Date Expiration Date Visits Requested Visits Authorized [id number] New Request Auto-Generat ed Referral 03/28/2025 1 1 [facility] for referral (narrative)* Diagnostic Procedure Only (Routine) - Authorized Specialty Diagnoses / Procedures Referred By Contac t Referred To Contact US IMAGING Diagnoses Malignant neoplasm of left breast in female, estrogen receptor positive, unspecified site of breast (HCC) Swelling of limb Procedures US DVT UPPER LEFT DUP-SCAN XTR VEINS UNILATERAL/LIMITED STUDY Serena Carrasco DO [address] [place] [address] [place] [address] Referral ID Status Reason Start Date Expiration Date Visits Requested Visits Authorized [id number] Authorized Auto-Generat ed Referral 04/10/2024 05/10/2025 1 1 * Outpatient Procedure (Routine) - New Request Specialty Diagnoses / Procedures Referred By Contac t Referred To Contact [facility] Diagnoses Malignant neoplasm of left breast in female, estrogen receptor positive, unspecified site of breast (HCC) 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) Swelling of limb Procedures US ARM VEIN DVT UNL VAS LAB DUP-SCAN XTR VEINS UNILATERAL/LIMITED STUDY Serena Carrasco DO [address] [place] [address] [facility] [address] [place] [address] Referral ID Status Reason Start Date Expiration Date Visits Requested Visits Authorized [id number] New Request Auto-Generat ed Referral 04/10/2024 04/10/2025 1 1 [facility] Diagnostic Procedure Only (Routine) - Closed Specialty Diagnoses / Procedures Referred By Contac t Referred To Contact US IMAGING Diagnoses Malignant neoplasm of left breast in female, estrogen receptor positive, unspecified site of breast (HCC) Swelling of limb Procedures US DVT UPPER LEFT DUP-SCAN XTR VEINS UNILATERAL/LIMITED STUDY Serena Carrasco DO [address] [place] [address] [place] [address] Referral ID Status Reason Start Date Expiration Date V isits Requested Visits Authorized [id number] Closed Auto-Generate d Referral 04/10/2024 05/10/2025 1 1 [facility] (narrative)* Diagnostic Procedure Only (Routine) - Authorized Specialty Diagnoses / Procedures [facility] To [facility] Diagnoses Malignant neoplasm of left breast in female, estrogen receptor positive, unspecified site of breast (HCC) 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 lymph node (HCC) Procedures NM PET/CT SKULL-THIGH SUBSEQUENT PET IMAGING CT ATTENUATION SKULL BASE MID-THIGH Serena Carrasco DO [address] [place] [address] [facility] [address] [place] [address] Referral ID Status Reason Start Date Expiration Date Visits Requested Visits Authorized [id number] Authorized Auto-Generat ed Referral 04/13/2024 05/13/2025 1 1 [facility] for referral (narrative)No reason for referral information [facility] Phone: [facility] for visit Narrative* Diagnostic Procedure Only (Routine) - Closed Specialty Diagnoses / Procedures Referred By Contac t Referred To Contact [facility]AL [facility] Diagnoses Malignant neoplasm of left breast in female, estrogen receptor positive, unspecified site of breast (HCC) Malignant neoplasm of lower-outer quadrant of left breast of female, estrogen receptor positive (HCC) 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) Procedures NM PET/CT SKULL-THIGH SUBSEQUENT PET IMAGING CT ATTENUATION SKULL BASE MID-THIGH Kassy Raman APRN.PLATEN GRINDER [address] [place] [address] [facility] [address] [place] [address] Referral ID Status Reason Start Date Expiration Date V isits Requested Visits Authorized [id number] Closed Auto-Generate d Referral 01/15/2023 02/13/2023 1 1 [facility] for visit Narrative* Diagnostic Procedure Only (Routine) - Closed Specialty Diagnoses / Procedures Referred By Contac t Referred To Contact [facility] Diagnoses Malignant neoplasm of lower-outer quadrant of left breast of female, estrogen receptor positive (HCC) 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) Procedures NM PET/CT SKULL-THIGH SUBSEQUENT PET IMAGING CT ATTENUATION SKULL BASE MID-THIGH Serena Carrasco DO [address] [place] [address] [facility] [address] [place] [address] Referral ID Status Reason Start Date Expiration Date V isits Requested Visits Authorized [id number] Closed Auto-Generate d Referral 08/16/2023 09/14/2023 2 2 [facility] for visit Narrative* Diagnostic Procedure Only (Routine) - Closed Specialty Diagnoses / Procedures Referred By Contac t Referred To Contact US IMAGING Diagnoses Right upper quadrant pain Procedures US ABD RIGHT UPPER QUADRANT US ABDOMINAL REAL TIME W/IMAGE LIMITED Serena Carrasco, DO [address] [place] [address] [place] [address] Referral ID Status Reason Start Date Expiration Date V isits Requested Visits Authorized [id number] Closed Auto-Generate d Referral 11/13/2023 12/12/2024 1 1 [facility] for visit Narrative* Diagnostic Procedure Only (Routine) - Closed Specialty Diagnoses / Procedures Referred By Contac t Referred To Contact [facility] FUN[facility] Diagnoses 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) Procedures NM PET/CT SKULL-THIGH SUBSEQUENT PET IMAGING CT ATTENUATION SKULL BASE MID-THIGH Serena Carrasco, DO [address] [place] [address] [facility] [address] [place] [address] Referral ID Status Reason Start Date Expiration Date V isits Requested Visits Authorized [id number] Closed Auto-Generate d Referral 12/13/2023 01/11/2024 1 1 [facility] for visit Narrative* Diagnostic Procedure Only (Routine) - Closed Specialty Diagnoses / Procedures Referred By Contac t Referred To Contact XR IMAGING Diagnoses Right hip pain Procedures XR PELVIS 1V AP RADIOLOGIC EXAMINATION PELVIS 1/2 VIEWS Suhbash Avila PA-C [address] [place] [address] [place] [address] Referral ID Status Reason Start Date Expiration Date V isits Requested Visits Authorized [id number] Closed Auto-Generate d Referral 03/20/2022 04/19/2023 1 1 [facility] for visit Narrative* Diagnostic Procedure Only (Routine) - Closed Specialty Diagnoses / Procedures Referred By Contac t Referred To Contact XR IMAGING Diagnoses Pain in right hip Procedures XR HIP 2V AP/LAT RIGHT (AK,FL,ME,UN) RADEX HIP UNILATERAL WITH PELVIS 2-3 VIEWS Subhash Avila PA-C [address] [place] [address] [place] [address] Referral ID Status Reason Start Date Expiration Date V isits Requested Visits Authorized [id number] Closed Auto-Generate d Referral 01/03/2024 02/01/2025 1 1 [facility] for visit Narrative* Diagnostic Procedure Only (Routine) - Closed Specialty Diagnoses / Procedures [facility] FUN[facility]AL [facility]AGING Diagnoses Malignant neoplasm of overlapping sites of left breast in female, estrogen receptor positive (HCC) 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) Malignant neoplasm of lower-outer quadrant of left breast of female, estrogen receptor positive (HCC) Procedures NM PET/CT SKULL-THIGH SUBSEQUENT PET IMAGING CT ATTENUATION SKULL BASE MID-THIGH Serena Carrasco DO [address] [place] [address] [facility] [address] [place] [address] Referral ID Status Reason Start Date Expiration Date V isits Requested Visits Authorized [id number] Closed Auto-Generate d Referral 01/06/2024 02/04/2025 1 1 [facility] for visit Narrative* Diagnostic Procedure Only (Routine) - Closed Specialty Diagnoses / Procedures [facility] Diagnoses Malignant neoplasm of left breast in female, estrogen receptor positive, unspecified site of breast (HCC) Swelling of limb Procedures US DVT UPPER LEFT DUP-SCAN XTR VEINS UNILATERAL/LIMITED STUDY Serena Carrasco DO [address] [place] [address] [facility] Referral ID Status Reason Start Date Expiration Date V isits Requested Visits Authorized [id number] Closed Auto-Generate d Referral 04/10/2024 05/10/2025 1 1 [facility] for visit Narrative* Auth/Cert (Routine) Specialty Diagnoses / Procedures Referred By Parmjit cabrera Referred To Contact [facility] Diagnoses Malignant neoplasm of lower-outer quadrant of left breast of female, estrogen receptor positive (HCC) Malignant neoplasm of lower-outer quadrant of left breast of female, estrogen receptor positive (HCC) [C50.512, Z17.0] Procedures REMOVAL OF BREAST IMPLANT KARIN-IMPLANT CAPSULECTOMY BREAST COMPLETE MASTECTOMY, SIMPLE, COMPLETE MASTECTOMY, PARTIAL REMOVAL IMPLANT BREAST CAPSULECTOMY BREAST IMPLANT COMPLETE INCLD REMOVAL OF ALL INTRACAPSULAR CONTENTS MASTECTOMY PARTIAL Ambulatory Surgery [address] [place] [address] Referral ID Status Reason Start Date Expiration Date Visits Re quested Visits Authorized [id number] 1 1 [facility] for visit Narrative* Diagnostic Procedure Only (Routine) - Closed Specialty Diagnoses / Procedures Referred By Parmjit cabrera Referred To Contact MOLECULAR [facility] FUNCTIONAL IMAGING Diagnoses Malignant neoplasm of left breast in female, estrogen receptor positive, unspecified site of breast (HCC) 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 lymph node (HCC) Procedures NM PET/CT SKULL-THIGH SUBSEQUENT PET IMAGING CT ATTENUATION SKULL BASE MID-THIGH Serena Carrasco, DO [address] [place] [address] Phone: tel: fax: Molecular Imaging [address] [place] [address] Phone: tel: Referral ID Status Reason Start Date Expiration Date V isits Requested Visits Authorized [id number] Closed Auto-Generate d Referral 04/13/2024 05/13/2025 1 1 [facility] for visit Narrative* Diagnostic Procedure Only (Urgent) - Closed Specialty Diagnoses / Procedures Referred By Parmjit cabrera Referred To Contact US IMAGING Diagnoses Acute renal insufficiency Other microscopic hematuria Procedures US KIDNEY/BLADDER US RETROPERITONEAL REAL TIME W/IMAGE COMPLETE Nel Day M, HULLER OPERATOR.PLATEN GRINDER [address] [place] [address] Phone: tel: fax: [place] [address] Referral ID Status Reason Start Date Expiration Date V isits Requested Visits Authorized [id number] Closed Auto-Generate d Referral 09/23/2024 10/23/2025 1 1 [facility] for visit Narrative* Diagnostic Procedure Only (Routine) - Closed Specialty Diagnoses / Procedures Referred By Parmjit cabrera Referred To Contact MOLECULAR & FUNCTIONAL IMAGING Diagnoses Malignant neoplasm of left breast in female, estrogen receptor positive, unspecified site of breast (HCC) 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) Procedures NM PET/CT SKULL-THIGH SUBSEQUENT PET IMAGING CT ATTENUATION SKULL BASE MID-THIGH Serena Carrasco, DO [address] [place] [address] Phone: tel: fax: Molecular Imaging [address] [place], [place] [id number] Phone: tel: Referral ID Status Reason Start Date Expiration Date V isits Requested Visits Authorized [id number] Closed Auto-Generate d Referral 07/09/2024 08/08/2025 1 1 [facility] Instructions Name Dates Details Non-smoker : How to access h ealth information online Indication:Non-smoker Non-smoker : How to access h ealth information online - Detail Indication:Non-smoker Non-smoker : Patient Instruc tions Indication:Non-smoker BMI 30.0-30.9,adult : How to access health information online Indication:BMI 30.0-30.9,adult BMI 30.0-30.9,adult : How to access health information online - Detail Indication:BMI 30.0-30.9,adult BMI 30.0-30.9,adult : Patien t Instructions Indication:BMI 30.0-30.9,adult Bronchitis : How to access h ealth information online Indication:Bronchitis Bronchitis : How to access h ealth information online - Detail Indication:Bronchitis Bronchitis : Patient Instruc tions Indication:Bronchitis Cough : Patient Instructions Indication:Cough Fever and chills : How to ac cess health information online Indication:Fever and chills Fever and chills : How to ac cess health information online - Detail Indication:Fever and chills Fever and chills : Patient I nstructions Indication:Fever and chills Sinusitis : Patient Instruct ions Indication:Sinusitis Fatty liver : How to access health information online Indication:Fatty liver Fatty liver : How to access health information online - Detail Indication:Fatty liver Fatty liver : Patient Instru ctions Indication:Fatty liver Breast cancer screening : [place] Instructions Indication:Breast cancer screening Elevated liver enzymes : Pat ient Instructions Indication:Elevated liver enzymes Name Dates Details How to access health informa tion online Indication:Non-smoker Start:14-Mar-2017 Instruction Type:Patient Education How to access health informa tion online - Detail Indication:Non-smoker Start:14-Mar-2017 Instruction Type:Patient Education Patient Instructions Indication:Non-smoker Start:14-Mar-2017 Instruction Type:Provider Instructions for Treatment How to access health informa tion online Indication:BMI 30.0-30.9,adult Start:11-Feb-2017 Instruction Type:Patient Education How to access health informa tion online - Detail Indication:BMI 30.0-30.9,adult Start:11-Feb-2017 Instruction Type:Patient Education Patient Instructions Indication:BMI 30.0-30.9,adult Start:11-Feb-2017 Instruction Type:Provider Instructions for Treatment How to access health informa tion online Indication:Bronchitis Start:28-Jul-2015 Instruction Type:Patient Education How to access health informa tion online - Detail Indication:Bronchitis Start:28-Jul-2015 Instruction Type:Patient Education Patient Instructions Indication:Bronchitis Start:28-Jul-2015 Instruction Type:Provider Instructions for Treatment Patient Instructions Indication:Cough Start:18-Jul-2015 Instruction Type:Provider Instructions for Treatment How to access health informa tion online Indication:Fever and chills Start:13-Jun-2015 Instruction Type:Patient Education How to access health informa tion online - Detail Indication:Fever and chills Start:13-Jun-2015 Instruction Type:Patient Education Patient Instructions Indication:Fever and chills Start:13-Jun-2015 Instruction Type:Provider Instructions for Treatment Patient Instructions Indication:Sinusitis Start:02-Jul-2014 Instruction Type:Provider Instructions for Treatment How to access health informa tion online Indication:Fatty liver Start:19-Mar-2014 Instruction Type:Patient Education How to access health informa tion online - Detail Indication:Fatty liver Start:19-Mar-2014 Instruction Type:Patient Education Patient Instructions Indication:Fatty liver Start:19-Mar-2014 Instruction Type:Provider Instructions for Treatment Patient Instructions Indication:Breast cancer screening Start:30-Nov-2013 Instruction Type:Provider Instructions for Treatment Patient Instructions Indication:Elevated liver enzymes Start:18-Nov-2013 Instruction Type:Provider Instructions for Treatment Patient Instructions Indication:Elevated liver enzymes Start:02-Nov-2013 Instruction Type:Provider Instructions for Treatment Patient Instructions Indication:Sinusitis Start:15-Jan-2013 Instruction Type:Provider Instructions for Treatment Summary Purpose Family History Relationship Condition Age at Onset Recorded Date/T tyler mother Diabetes mellitus Unknown Cardiac disease Unknown Hypertension Unknown Cerebrovascular accident (CVA) Unknown father Diabetes mellitus Unknown No Family History Records Found Advance Directives No Advanced Directives Records FoundDocuments on File Type Date Recorded 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 Advance Directive(s) 09/24/2017 4:22 PM Date Activated Date Inactivated Comments 03/31/2019 1:31 PM 08/14/2022 8:33 AM Latest Code Status on File Code Status Date Activated Date Inactivated Comments Full Code 03/31/2019 1:31 PM Documents on File Type Date Recorded 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 Advance Directive(s) 03/20/2019 6:42 AM Advance Directive(s) 03/09/2019 12:12 PM Advance Directive(s) 08/29/2018 9:49 AM Advance Directive(s) 08/08/2018 9:48 AM Advance Directive(s) 09/24/2017 4:06 PM Advance Directive(s) 09/24/2017 4:23 PM Advance Directive(s) 09/24/2017 4:22 PM Advance Directive Response Recorded Date/ Time Advance Directives Yes June 07 10:05am Living Will No April 23 10:55am Power of Debridging Machine Operator No April 23, 2017 10:55am Documents on File Type Date Recorded 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 Advance Directive(s) 09/24/2017 4:22 PM Latest Code Status on File Code Status Date Activated Date Inactivated Comments Full Code 03/31/2019 1:31 PM Latest Code Status on File Code Status Date Activated Date Inactivated Comments Full Code 03/31/2019 1:31 PM 08/14/2022 8:33 AM Latest Code Status on File Code Status Date Activated Date Inactivated Comments Full Code 03/31/2019 1:31 PM 08/14/2022 8:33 AM Latest Code Status on File Code Status Date Activated Date Inactivated Comments Full Code 03/31/2019 1:31 PM 08/14/2022 8:33 AM Latest Code Status on File Code Status Date Activated Date Inactivated Comments Full Code 03/31/2019 1:31 PM 08/14/2022 8:33 AM Advance Directive Response Recorded Date/ Time Advance Directives Yes June 07 10:05am Living Will No July 08, 2023 6:21pm Power of Debridging Machine Operator No July 07 6:21pm Date Activated Date Inactivated Comments 03/31/2019 1:31 PM 08/14/2022 8:33 AM Advance Directive Response Recorded Date/ Time Advance Directives Yes June 07 10:05am Medications Administered Section Inactive Administered Medications - up to 3 most recent administrations Medication Order MAR Action Action Date Dose Rate Site zoledronic ux-itdcmhcy-0.9NaCl 4 mg iv piggyback 100 mL (ZOMETA) 4 mg, INTRAVENOUS, Administer over 15 Minutes, ONCE, 1 dose, On Sat08/07/21 at 0930, Hazardous Potential Reproductive Risk Drug: Use appropriate PPE. New Bag/Syringe/Bottle 08/07/2021 9:12 AM EDT 4 mg Inactive Administered Medications - up to 3 most recent administrations Medication Order MAR Action Action Date Dose Rate Site zoledronic hy-vagwgehc-9.9NaCl 4 mg iv piggyback 100 mL (ZOMETA) 4 mg, INTRAVENOUS, Administer over 15 Minutes, ONCE, 1 dose, On Sat01/22/22 at 1130, Hazardous Potential Reproductive Risk Drug: Use appropriate PPE. New Bag/Syringe/Bottle 01/22/2022 11:40 AM EDT 4 mg Inactive Administered Medications - up to 3 most recent administrations Medication Order MAR Action Action Date Dose Rate Site zoledronic el-acghtpwm-0.9NaCl 4 mg iv piggyback 100 mL (ZOMETA) 4 mg, INTRAVENOUS, Administer over 15 Minutes, ONCE, 1 dose, On Sat07/09/22 at 1130, Hazardous Potential Reproductive Risk Drug: Use appropriate PPE. New Bag/Syringe/Bottle 07/09/2022 11:16 AM EDT 4 mg Inactive Administered Medications - up to 3 most recent administrations Medication Order MAR Action Action Date Dose Rate Site fulvestrant 500 mg injection (FASLODEX) 500 mg, INTRAMUSCULAR, ONCE, 1 dose, On Sat09/06/22 at 0900, Hazardous Chemotherapy Drug: Use appropriate PPE. Refrigerate. Given 09/06/2022 9:06 AM EDT 500 mg Buttocks, Left Inactive Administered Medications - up to 3 most recent administrations Medication Order MAR Action Action Date Dose Rate Site fulvestrant 500 mg injection (FASLODEX) 500 mg, INTRAMUSCULAR, ONCE, 1 dose, On Sat09/20/22 at 1200, Hazardous Chemotherapy Drug: Use appropriate PPE. Refrigerate. Given 09/20/2022 12:31 PM EDT 500 mg Buttocks, Right Inactive Administered Medications - up to 3 most recent administrations Medication Order MAR Action Action Date Dose Rate Site NaCl 0.9% 1,000 mL INTRAVENOUS, at 500 mL/hr, Administer over 2 Hours, ONCE, 1 dose, On Sat09/20/22 at 1130 New Bag/Syringe/Bottle 09/20/2022 11:30 AM EDT 500 mL/hr Inactive Administered Medications - up to 3 most recent administrations Medication Order MAR Action Action Date Dose Rate Site NaCl 0.9% 1,000 mL INTRAVENOUS, at 500 mL/hr, Administer over 2 Hours, ONCE, 1 dose, On Sat09/21/22 at 1330 New Bag/Syringe/Bottle 09/21/2022 1:30 PM EDT 500 mL/hr Inactive Administered Medications - up to 3 most recent administrations Medication Order MAR Action Action Date Dose Rate Site NaCl 0.9% 500 mL INTRAVENOUS, at 500 mL/hr, Administer over 1 Hours, ONCE, 1 dose, On Sat09/25/22 at 1200 New Bag/Syringe/Bottle 09/25/2022 11:56 AM EDT 500 mL/hr Inactive Administered Medications - up to 3 most recent administrations Medication Order MAR Action Action Date Dose Rate Site fulvestrant 500 mg injection (FASLODEX) 500 mg, INTRAMUSCULAR, ONCE, 1 dose, On Sat10/18/22 at 0930, Hazardous Chemotherapy Drug: Use appropriate PPE. Refrigerate. Given 10/18/2022 9:34 AM EDT 500 mg Buttocks, Right Inactive Administered Medications - up to 3 most recent administrations Medication Order MAR Action Action Date Dose Rate Site NaCl 0.9% 1,000 mL INTRAVENOUS, at 500 mL/hr, Administer over 2 Hours, ONCE, 1 dose, On Sat11/06/22 at 1400 New Bag/Syringe/Bottle 11/06/2022 1:41 PM EDT 500 mL/hr Inactive Administered Medications - up to 3 most recent administrations Medication Order MAR Action Action Date Dose Rate Site magnesium sulfate in sterile water 4 g in 100 mL iv piggyback 4 g, INTRAVENOUS, at 25-50 mL/hr, Administer over 2-4 Hours, ONCE, 1 dose, On Sat11/07/22 at 1030, Total 6 gm today Magnesium Sulfate IV bolus will be infused at a rate of 1 gram/hr. The following care areas may administer a magnesium sulfate bolus at a rate of 2 grams/hr if necessary: 1) ICUs/PACU/ED 2) Adult Hematology/Oncology 3) Labor and Delivery 4) Cardiac Step Down 5) Headache Clinic The following care areas may administer a magnesium sulfate bolus at a rate of GREATER than 2 grams/hr if necessary: 1) Adult and Pediatric Asthma Exacerbations 2) [place] Point[place] 3) Pediatric BMT and Hematology/Oncology 4) Eclampsia or Preeclampsia New Bag/Syringe/Bottle 11/07/2022 10:26 AM EDT 4 g 50 mL/hr magnesium sulfate iv piggyback in sterile water 2 g 50 mL 2 g, INTRAVENOUS, at 25-50 mL/hr, Administer over 1-2 Hours, ONCE, 1 dose, On Sat11/07/22 at 1030, Magnesium Sulfate IV bolus will be infused at a rate of 1 gram/hr. The following care areas may administer a magnesium sulfate bolus at a rate of 2 grams/hr if necessary: 1) ICUs/PACU/ED 2) Adult Hematology/Oncology 3) Labor and Delivery 4) Cardiac Step Down 5) Headache Clinic The following care areas may administer a magnesium sulfate bolus at a rate of GREATER than 2 grams/hr if necessary: 1) Adult and Pediatric Asthma Exacerbations 2) [place] 3) Pediatric BMT and Hematology/Oncology 4) Eclampsia or Preeclampsia New Bag/Syringe/Bottle 11/07/2022 12:23 PM EDT 2 g 50 mL/hr NaCl 0.9% 1,000 mL INTRAVENOUS, at 500 mL/hr, Administer over 2 Hours, ONCE, 1 dose, On Sat11/07/22 at 1030 New Bag/Syringe/Bottle 11/07/2022 10:20 AM EDT 500 mL/hr Inactive Administered Medications - up to 3 most recent administrations Medication Order MAR Action Action Date Dose Rate Site fulvestrant 500 mg injection (FASLODEX) 500 mg, INTRAMUSCULAR, ONCE, 1 dose, On [place] 11/15/22 at 0930, Hazardous Chemotherapy Drug: Use appropriate PPE. Refrigerate. Given 11/15/2022 9:29 AM EDT 500 mg Buttocks, Left Inactive Administered Medications - up to 3 most recent administrations Medication Order MAR Action Action Date Dose Rate Site fulvestrant 500 mg injection (FASLODEX) 500 mg, INTRAMUSCULAR, ONCE, 1 dose, On [place] 12/13/22 at 0930, Hazardous Chemotherapy Drug: Use appropriate PPE. Refrigerate. Given 12/13/2022 9:42 AM EDT 500 mg Buttocks, Left Inactive Administered Medications - up to 3 most recent administrations Medication Order MAR Action Action Date Dose Rate Site fulvestrant 500 mg injection (FASLODEX) 500 mg, INTRAMUSCULAR, ONCE, 1 dose, On e 03/05/23 at 0930, Hazardous Chemotherapy Drug: Use appropriate PPE. Refrigerate. 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 Hyperlipemia, mixed November 02, 2024 11:0 7am HTN (hypertension) November 02, 2024 11:0 7am Reason for Referral Specialty Diagnoses / Procedures Referred By Parmjit cabrera Referred To Contact [facility] Diagnoses It band syndrome, right Status post total replacement of right hip Procedures CONSULT TO PHYSICAL THERAPY PHYSICAL THERAPY EVALUATION HIGH COMPLEX 45 MINS Subhash Avila PA-C [address] [place] [address] [facility] [address] [address] Referral ID Status Reason Start Date Expiration Date Visits Requested Visits Authorized [id number] Pending Review Auto-Generat ed Referral 2 03/26/2023 1 1 Specialty Diagnoses / Procedures Referred By Parmjit cabrera Referred To Contact MR IMAGING Diagnoses Malignant neoplasm of overlapping sites of left breast in female, estrogen receptor positive (HCC) 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) Procedures MRI BRAIN WO/W IVCON MRI BRAIN BRAIN STEM W/O W/CONTRAST MATERIAL Serena Carrasco DO [address] [place] [address] Mr Imaging Referral ID Status Reason Start Date Expiration Date V isits Requested Visits Authorized [id number] Closed Auto-Generate d Referral 07/26/2022 08/25/2023 1 1 Specialty Diagnoses / Procedures Referred By Contac t Referred To Contact MR IMAGING Diagnoses Malignant neoplasm of lower-outer quadrant of left breast of female, estrogen receptor positive (HCC) Procedures MRI BREAST WO/W IVCON BILATERAL MRI BREAST WITHOUT&WITH CONTRAST W/[place] [address] [place] [address] Mr Imaging Referral ID Status Reason Start Date Expiration Date Visits Requested Visits Authorized [id number] Authorized Auto-Generat ed Referral 08/01/2022 08/31/2023 1 1 Specialty Diagnoses / Procedures Referred By Contac t Referred To Contact BR IMAGING Diagnoses Malignant neoplasm of lower-outer quadrant of left breast of female, estrogen receptor positive (HCC) Procedures US BREAST LTD LEFT US BREAST UNI REAL TIME WITH IMAGE [place] [id number] [place] [address] [facility] [address] [place] [address] Referral ID Status Reason Start Date Expiration Date V isits Requested Visits Authorized [id number] Closed Auto-Generate d Referral 08/01/2022 04/07/2023 1 1 Referral ID Status Reason Start Date Expiration Date V isits Requested Visits Authorized [id number] Closed Auto-Generate d Referral 08/01/2022 08/31/2023 1 1 Specialty Diagnoses / Procedures Referred By Contac t Referred To Contact Orthopedics Diagnoses Cervicalgia Procedures CONSULT TO ORTHOPAEDICS OFFICE/OUTPATIENT [facility] 60-74 MINUTES 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, 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 [address] [place] [address] Referral ID Status Reason Start Date Expiration Date Visits Requested Visits Authorized [id number] Authorized PCP Requested Referral 02/12/2023 02/12/2024 1 1 Specialty Diagnoses / Procedures Referred By Contac t Referred To Contact MR IMAGING Diagnoses Malignant neoplasm of lower-outer quadrant of left breast of female, estrogen receptor positive (HCC) Procedures MRI BREAST WO/W IVCON BILATERAL MRI BREAST WITHOUT&WITH CONTRAST W/[place] [address] [place] [address] [place] [address] Referral ID Status Reason Start Date Expiration Date Visits Requested Visits Authorized [id number] New Request Auto-Generat ed Referral 01/06/2024 02/04/2025 1 1 Specialty Diagnoses / Procedures Referred By Contac t Referred To Contact Diagnoses Poorly control type 2 diabetes mellitus (HCC) Procedures ENDOCRINOLOGY DIETITIAN VISIT (MNT) MEDICAL NUTRITION ASSMT&IVNTJ INDIV EACH 15 GA MEDICAL NUTRITION ASSMT&IVNTJ INDIV EACH 15 GA MEDICAL NUTRITION ASSMT&IVNTJ INDIV EACH 15 GA MEDICAL NUTRITION ASSMT&IVNTJ INDIV EACH 15 GA Daisy Titus APRN.PLATEN GRINDER [address] [place] [address] Referral ID Status Reason Start Date Expiration Date Visits Requested Visits Authorized [id number] Authorized PCP Requested Referral 02/04/2025 1 1 Specialty Diagnoses / Procedures Referred By Contac t Referred To Contact [facility] Diagnoses Malignant neoplasm of lower-outer quadrant of left breast of female, estrogen receptor positive (HCC) Lymphedema of left arm Procedures CONSULT TO LYMPHEDEMA THERAPY OFFICE/OUTPATIENT NEW HIGH MDM 60 MINUTES Serena Carrasco, [address] [place] [address] [facility] [place] [address] [place] [address] Referral ID Status Reason Start Date Expiration Date Visits Requested Visits Authorized [id number] Authorized Auto-Generat ed Referral 04/13/2024 04/13/2025 99 99 Additional Source Comments INFORMATION SOURCE (unrecogn ized section and content) DATE CREATED AUTHOR 08/22/2019 [facility] ([place]) DATE CREATED AUTHOR AUTHOR'S ORGANIZ ATION 08/18/2022 [facility] DATE CREATED AUTHOR AUTHOR'S ORGANIZ ATION 07/17/2024 [facility] DATE CREATED AUTHOR AUTHOR'S ORGANIZ ATION 09/26/2024 [facility] DATE CREATED AUTHOR AUTHOR'S ORGANIZ ATION 10/27/2024 [facility] DATE CREATED AUTHOR AUTHOR'S ORGANIZ ATION 11/14/2024 [facility] DATE CREATED AUTHOR AUTHOR'S ORGANIZ ATION 11/15/2024 [facility] DATE CREATED AUTHOR AUTHOR'S ORGANIZ ATION 11/15/2024 [facility] Source Comments (unrecognize d section and content) In the event this informatio n is protected by the Federal Confidentiality of Alcohol and Drug Abuse Patient Records regulations: The Federal rules restrict any use of the information to criminally investigate or prosecute any alcohol or drug abuse patient.[facility] the event this information is protected by the Federal Confidentiality of Alcohol and Drug Abuse Patient Records regulations: The Federal rules restrict any use of the information to criminally investigate or prosecute any alcohol or drug abuse patient.[facility] the event this information is protected by the Federal Confidentiality of Alcohol and Drug Abuse Patient Records regulations: The Federal rules restrict any use of the information to criminally investigate or prosecute any alcohol or drug abuse patient.[facility] the event this information is protected by the Federal Confidentiality of Alcohol and Drug Abuse Patient Records regulations: The Federal rules restrict any use of the information to criminally investigate or prosecute any alcohol or drug abuse patient.[facility] the event this information is protected by the Federal Confidentiality of Alcohol and Drug Abuse Patient Records regulations: The Federal rules restrict any use of the information to criminally investigate or prosecute any alcohol or drug abuse patient.[facility] the event this information is protected by the Federal Confidentiality of Alcohol and Drug Abuse Patient Records regulations: The Federal rules restrict any use of the information to criminally investigate or prosecute any alcohol or drug abuse patient.[facility] the event this information is protected by the Federal Confidentiality of Alcohol and Drug Abuse Patient Records regulations: The Federal rules restrict any use of the information to criminally investigate or prosecute any alcohol or drug abuse patient.[facility] Hospital[facility] the event this information is protected by the Federal Confidentiality of Alcohol and Drug Abuse Patient Records regulations: The Federal rules restrict any use of the information to criminally investigate or prosecute any alcohol or drug abuse patient.[facility] the event this information is protected by the Federal Confidentiality of Alcohol and Drug Abuse Patient Records regulations: The Federal rules restrict any use of the information to criminally investigate or prosecute any alcohol or drug abuse patient.[facility] the event this information is protected by the Federal Confidentiality of Alcohol and Drug Abuse Patient Records regulations: The Federal rules restrict any use of the information to criminally investigate or prosecute any alcohol or drug abuse patient.[facility] Hospital[facility] the event this information is protected by the Federal Confidentiality of Alcohol and Drug Abuse Patient Records regulations: The Federal rules restrict any use of the information to criminally investigate or prosecute any alcohol or drug abuse patient.[facility] Hospital[facility] the event this information is protected by the Federal Confidentiality of Alcohol and Drug Abuse Patient Records regulations: The Federal rules restrict any use of the information to criminally investigate or prosecute any alcohol or drug abuse patient.[facility] [facility] the event this information is protected by the Federal Confidentiality of Alcohol and Drug Abuse Patient Records regulations: The Federal rules restrict any use of the information to criminally investigate or prosecute any alcohol or drug abuse patient.[facility]In the event this information is protected by the Federal Confidentiality of Alcohol and Drug Abuse Patient Records regulations: The Federal rules restrict any use of the information to criminally investigate or prosecute any alcohol or drug abuse patient.[facility] HospitalIn the event this information is protected by the Federal Confidentiality of Alcohol and Drug Abuse Patient Records regulations: The Federal rules restrict any use of the information to criminally investigate or prosecute any alcohol or drug abuse patient.[facility] HospitalIn the event this information is protected by the Federal Confidentiality of Alcohol and Drug Abuse Patient Records regulations: The Federal rules restrict any use of the information to criminally investigate or prosecute any alcohol or drug abuse patient.[facility] HospitalIn the event this information is protected by the Federal Confidentiality of Alcohol and Drug Abuse Patient Records regulations: The Federal rules restrict any use of the information to criminally investigate or prosecute any alcohol or drug abuse patient.[facility] HospitalIn the event this information is protected by the Federal Confidentiality of Alcohol and Drug Abuse Patient Records regulations: The Federal rules restrict any use of the information to criminally investigate or prosecute any alcohol or drug abuse patient.[facility] HospitalIn the event this information is protected by the Federal Confidentiality of Alcohol and Drug Abuse Patient Records regulations: The Federal rules restrict any use of the information to criminally investigate or prosecute any alcohol or drug abuse patient.[facility] HospitalIn the event this information is protected by the Federal Confidentiality of Alcohol and Drug Abuse Patient Records regulations: The Federal rules restrict any use of the information to criminally investigate or prosecute any alcohol or drug abuse patient.[facility] HospitalIn the event this information is protected by the Federal Confidentiality of Alcohol and Drug Abuse Patient Records regulations: The Federal rules restrict any use of the information to criminally investigate or prosecute any alcohol or drug abuse patient.[facility] HospitalIn the event this information is protected by the Federal Confidentiality of Alcohol and Drug Abuse Patient Records regulations: The Federal rules restrict any use of the information to criminally investigate or prosecute any alcohol or drug abuse patient.[facility] HospitalIn the event this information is protected by the Federal Confidentiality of Alcohol and Drug Abuse Patient Records regulations: The Federal rules restrict any use of the information to criminally investigate or prosecute any alcohol or drug abuse patient.[facility] HospitalIn the event this information is protected by the Federal Confidentiality of Alcohol and Drug Abuse Patient Records regulations: The Federal rules restrict any use of the information to criminally investigate or prosecute any alcohol or drug abuse patient.[facility] HospitalIn the event this information is protected by the Federal Confidentiality of Alcohol and Drug Abuse Patient Records regulations: The Federal rules restrict any use of the information to criminally investigate or prosecute any alcohol or drug abuse patient.[facility] HospitalIn the event this information is protected by the Federal Confidentiality of Alcohol and Drug Abuse Patient Records regulations: The Federal rules restrict any use of the information to criminally investigate or prosecute any alcohol or drug abuse patient.[facility] HospitalIn the event this information is protected by the Federal Confidentiality of Alcohol and Drug Abuse Patient Records regulations: The Federal rules restrict any use of the information to criminally investigate or prosecute any alcohol or drug abuse patient.[facility] HospitalIn the event this information is protected by the Federal Confidentiality of Alcohol and Drug Abuse Patient Records regulations: The Federal rules restrict any use of the information to criminally investigate or prosecute any alcohol or drug abuse patient.[facility] HospitalIn the event this information is protected by the Federal Confidentiality of Alcohol and Drug Abuse Patient Records regulations: The Federal rules restrict any use of the information to criminally investigate or prosecute any alcohol or drug abuse patient.[facility] HospitalIn the event this information is protected by the Federal Confidentiality of Alcohol and Drug Abuse Patient Records regulations: The Federal rules restrict any use of the information to criminally investigate or prosecute any alcohol or drug abuse patient.[facility] HospitalIn the event this information is protected by the Federal Confidentiality of Alcohol and Drug Abuse Patient Records regulations: The Federal rules restrict any use of the information to criminally investigate or prosecute any alcohol or drug abuse patient.[facility] HospitalIn the event this information is protected by the Federal Confidentiality of Alcohol and Drug Abuse Patient Records regulations: The Federal rules restrict any use of the information to criminally investigate or prosecute any alcohol or drug abuse patient.[facility] HospitalIn the event this information is protected by the Federal Confidentiality of Alcohol and Drug Abuse Patient Records regulations: The Federal rules restrict any use of the information to criminally investigate or prosecute any alcohol or drug abuse patient.[facility] HospitalIn the event this information is protected by the Federal Confidentiality of Alcohol and Drug Abuse Patient Records regulations: The Federal rules restrict any use of the information to criminally investigate or prosecute any alcohol or drug abuse patient.[facility] HospitalIn the event this information is protected by the Federal Confidentiality of Alcohol and Drug Abuse Patient Records regulations: The Federal rules restrict any use of the information to criminally investigate or prosecute any alcohol or drug abuse patient.[facility] HospitalIn the event this information is protected by the Federal Confidentiality of Alcohol and Drug Abuse Patient Records regulations: The Federal rules restrict any use of the information to criminally investigate or prosecute any alcohol or drug abuse patient.[facility] HospitalIn the event this information is protected by the Federal Confidentiality of Alcohol and Drug Abuse Patient Records regulations: The Federal rules restrict any use of the information to criminally investigate or prosecute any alcohol or drug abuse patient.[facility] HospitalIn the event this information is protected by the Federal Confidentiality of Alcohol and Drug Abuse Patient Records regulations: The Federal rules restrict any use of the information to criminally investigate or prosecute any alcohol or drug abuse patient.[facility] HospitalIn the event this information is protected by the Federal Confidentiality of Alcohol and Drug Abuse Patient Records regulations: The Federal rules restrict any use of the information to criminally investigate or prosecute any alcohol or drug abuse patient.[facility] HospitalIn the event this information is protected by the Federal Confidentiality of Alcohol and Drug Abuse Patient Records regulations: The Federal rules restrict any use of the information to criminally investigate or prosecute any alcohol or drug abuse patient.[facility] HospitalIn the event this information is protected by the Federal Confidentiality of Alcohol and Drug Abuse Patient Records regulations: The Federal rules restrict any use of the information to criminally investigate or prosecute any alcohol or drug abuse patient.[facility] HospitalIn the event this information is protected by the Federal Confidentiality of Alcohol and Drug Abuse Patient Records regulations: The Federal rules restrict any use of the information to criminally investigate or prosecute any alcohol or drug abuse patient.[facility] HospitalIn the event this information is protected by the Federal Confidentiality of Alcohol and Drug Abuse Patient Records regulations: The Federal rules restrict any use of the information to criminally investigate or prosecute any alcohol or drug abuse patient.[facility] HospitalIn the event this information is protected by the Federal Confidentiality of Alcohol and Drug Abuse Patient Records regulations: The Federal rules restrict any use of the information to criminally investigate or prosecute any alcohol or drug abuse patient.[facility] HospitalIn the event this information is protected by the Federal Confidentiality of Alcohol and Drug Abuse Patient Records regulations: The Federal rules restrict any use of the information to criminally investigate or prosecute any alcohol or drug abuse patient.[facility] HospitalIn the event this information is protected by the Federal Confidentiality of Alcohol and Drug Abuse Patient Records regulations: The Federal rules restrict any use of the information to criminally investigate or prosecute any alcohol or drug abuse patient.[facility] HospitalIn the event this information is protected by the Federal Confidentiality of Alcohol and Drug Abuse Patient Records regulations: The Federal rules restrict any use of the information to criminally investigate or prosecute any alcohol or drug abuse patient.[facility] HospitalIn the event this information is protected by the Federal Confidentiality of Alcohol and Drug Abuse Patient Records regulations: The Federal rules restrict any use of the information to criminally investigate or prosecute any alcohol or drug abuse patient.[facility] HospitalIn the event this information is protected by the Federal Confidentiality of Alcohol and Drug Abuse Patient Records regulations: The Federal rules restrict any use of the information to criminally investigate or prosecute any alcohol or drug abuse patient.[facility] HospitalIn the event this information is protected by the Federal Confidentiality of Alcohol and Drug Abuse Patient Records regulations: The Federal rules restrict any use of the information to criminally investigate or prosecute any alcohol or drug abuse patient.[facility] HospitalIn the event this information is protected by the Federal Confidentiality of Alcohol and Drug Abuse Patient Records regulations: The Federal rules restrict any use of the information to criminally investigate or prosecute any alcohol or drug abuse patient.[facility] HospitalIn the event this information is protected by the Federal Confidentiality of Alcohol and Drug Abuse Patient Records regulations: The Federal rules restrict any use of the information to criminally investigate or prosecute any alcohol or drug abuse patient.[facility] HospitalIn the event this information is protected by the Federal Confidentiality of Alcohol and Drug Abuse Patient Records regulations: The Federal rules restrict any use of the information to criminally investigate or prosecute any alcohol or drug abuse patient.[facility] HospitalIn the event this information is protected by the Federal Confidentiality of Alcohol and Drug Abuse Patient Records regulations: The Federal rules restrict any use of the information to criminally investigate or prosecute any alcohol or drug abuse patient.[facility] HospitalIn the event this information is protected by the Federal Confidentiality of Alcohol and Drug Abuse Patient Records regulations: The Federal rules restrict any use of the information to criminally investigate or prosecute any alcohol or drug abuse patient.[facility] HospitalIn the event this information is protected by the Federal Confidentiality of Alcohol and Drug Abuse Patient Records regulations: The Federal rules restrict any use of the information to criminally investigate or prosecute any alcohol or drug abuse patient.[facility] HospitalIn the event this information is protected by the Federal Confidentiality of Alcohol and Drug Abuse Patient Records regulations: The Federal rules restrict any use of the information to criminally investigate or prosecute any alcohol or drug abuse patient.[facility] HospitalIn the event this information is protected by the Federal Confidentiality of Alcohol and Drug Abuse Patient Records regulations: The Federal rules restrict any use of the information to criminally investigate or prosecute any alcohol or drug abuse patient.[facility] HospitalIn the event this information is protected by the Federal Confidentiality of Alcohol and Drug Abuse Patient Records regulations: The Federal rules restrict any use of the information to criminally investigate or prosecute any alcohol or drug abuse patient.[facility] HospitalIn the event this information is protected by the Federal Confidentiality of Alcohol and Drug Abuse Patient Records regulations: The Federal rules restrict any use of the information to criminally investigate or prosecute any alcohol or drug abuse patient.[facility] HospitalIn the event this information is protected by the Federal Confidentiality of Alcohol and Drug Abuse Patient Records regulations: The Federal rules restrict any use of the information to criminally investigate or prosecute any alcohol or drug abuse patient.[facility] HospitalIn the event this information is protected by the Federal Confidentiality of Alcohol and Drug Abuse Patient Records regulations: The Federal rules restrict any use of the information to criminally investigate or prosecute any alcohol or drug abuse patient.[facility] HospitalIn the event this information is protected by the Federal Confidentiality of Alcohol and Drug Abuse Patient Records regulations: The Federal rules restrict any use of the information to criminally investigate or prosecute any alcohol or drug abuse patient.[facility] HospitalIn the event this information is protected by the Federal Confidentiality of Alcohol and Drug Abuse Patient Records regulations: The Federal rules restrict any use of the information to criminally investigate or prosecute any alcohol or drug abuse patient.[facility] HospitalIn the event this information is protected by the Federal Confidentiality of Alcohol and Drug Abuse Patient Records regulations: The Federal rules restrict any use of the information to criminally investigate or prosecute any alcohol or drug abuse patient.[facility] HospitalIn the event this information is protected by the Federal Confidentiality of Alcohol and Drug Abuse Patient Records regulations: The Federal rules restrict any use of the information to criminally investigate or prosecute any alcohol or drug abuse patient.[facility] HospitalIn the event this information is protected by the Federal Confidentiality of Alcohol and Drug Abuse Patient Records regulations: The Federal rules restrict any use of the information to criminally investigate or prosecute any alcohol or drug abuse patient.[facility] HospitalIn the event this information is protected by the Federal Confidentiality of Alcohol and Drug Abuse Patient Records regulations: The Federal rules restrict any use of the information to criminally investigate or prosecute any alcohol or drug abuse patient.[facility] HospitalIn the event this information is protected by the Federal Confidentiality of Alcohol and Drug Abuse Patient Records regulations: The Federal rules restrict any use of the information to criminally investigate or prosecute any alcohol or drug abuse patient.[facility] HospitalIn the event this information is protected by the Federal Confidentiality of Alcohol and Drug Abuse Patient Records regulations: The Federal rules restrict any use of the information to criminally investigate or prosecute any alcohol or drug abuse patient.[facility] HospitalIn the event this information is protected by the Federal Confidentiality of Alcohol and Drug Abuse Patient Records regulations: The Federal rules restrict any use of the information to criminally investigate or prosecute any alcohol or drug abuse patient.[facility] HospitalIn the event this information is protected by the Federal Confidentiality of Alcohol and Drug Abuse Patient Records regulations: The Federal rules restrict any use of the information to criminally investigate or prosecute any alcohol or drug abuse patient.[facility] HospitalIn the event this information is protected by the Federal Confidentiality of Alcohol and Drug Abuse Patient Records regulations: The Federal rules restrict any use of the information to criminally investigate or prosecute any alcohol or drug abuse patient.[facility] HospitalIn the event this information is protected by the Federal Confidentiality of Alcohol and Drug Abuse Patient Records regulations: The Federal rules restrict any use of the information to criminally investigate or prosecute any alcohol or drug abuse patient.[facility] HospitalIn the event this information is protected by the Federal Confidentiality of Alcohol and Drug Abuse Patient Records regulations: The Federal rules restrict any use of the information to criminally investigate or prosecute any alcohol or drug abuse patient.[facility] HospitalIn the event this information is protected by the Federal Confidentiality of Alcohol and Drug Abuse Patient Records regulations: The Federal rules restrict any use of the information to criminally investigate or prosecute any alcohol or drug abuse patient.[facility] HospitalIn the event this information is protected by the Federal Confidentiality of Alcohol and Drug Abuse Patient Records regulations: The Federal rules restrict any use of the information to criminally investigate or prosecute any alcohol or drug abuse patient.[facility] HospitalIn the event this information is protected by the Federal Confidentiality of Alcohol and Drug Abuse Patient Records regulations: The Federal rules restrict any use of the information to criminally investigate or prosecute any alcohol or drug abuse patient.[facility] HospitalIn the event this information is protected by the Federal Confidentiality of Alcohol and Drug Abuse Patient Records regulations: The Federal rules restrict any use of the information to criminally investigate or prosecute any alcohol or drug abuse patient.[facility] HospitalIn the event this information is protected by the Federal Confidentiality of Alcohol and Drug Abuse Patient Records regulations: The Federal rules restrict any use of the information to criminally investigate or prosecute any alcohol or drug abuse patient.[facility] HospitalIn the event this information is protected by the Federal Confidentiality of Alcohol and Drug Abuse Patient Records regulations: The Federal rules restrict any use of the information to criminally investigate or prosecute any alcohol or drug abuse patient.[facility] HospitalIn the event this information is protected by the Federal Confidentiality of Alcohol and Drug Abuse Patient Records regulations: The Federal rules restrict any use of the information to criminally investigate or prosecute any alcohol or drug abuse patient.[facility] HospitalIn the event this information is protected by the Federal Confidentiality of Alcohol and Drug Abuse Patient Records regulations: The Federal rules restrict any use of the information to criminally investigate or prosecute any alcohol or drug abuse patient.[facility] HospitalIn the event this information is protected by the Federal Confidentiality of Alcohol and Drug Abuse Patient Records regulations: The Federal rules restrict any use of the information to criminally investigate or prosecute any alcohol or drug abuse patient.[facility] HospitalIn the event this information is protected by the Federal Confidentiality of Alcohol and Drug Abuse Patient Records regulations: The Federal rules restrict any use of the information to criminally investigate or prosecute any alcohol or drug abuse patient.[facility] HospitalIn the event this information is protected by the Federal Confidentiality of Alcohol and Drug Abuse Patient Records regulations: The Federal rules restrict any use of the information to criminally investigate or prosecute any alcohol or drug abuse patient.[facility] HospitalIn the event this information is protected by the Federal Confidentiality of Alcohol and Drug Abuse Patient Records regulations: The Federal rules restrict any use of the information to criminally investigate or prosecute any alcohol or drug abuse patient.[facility] HospitalIn the event this information is protected by the Federal Confidentiality of Alcohol and Drug Abuse Patient Records regulations: The Federal rules restrict any use of the information to criminally investigate or prosecute any alcohol or drug abuse patient.[facility] HospitalIn the event this information is protected by the Federal Confidentiality of Alcohol and Drug Abuse Patient Records regulations: The Federal rules restrict any use of the information to criminally investigate or prosecute any alcohol or drug abuse patient.[facility] HospitalIn the event this information is protected by the Federal Confidentiality of Alcohol and Drug Abuse Patient Records regulations: The Federal rules restrict any use of the information to criminally investigate or prosecute any alcohol or drug abuse patient.[facility] HospitalIn the event this information is protected by the Federal Confidentiality of Alcohol and Drug Abuse Patient Records regulations: The Federal rules restrict any use of the information to criminally investigate or prosecute any alcohol or drug abuse patient.[facility] HospitalIn the event this information is protected by the Federal Confidentiality of Alcohol and Drug Abuse Patient Records regulations: The Federal rules restrict any use of the information to criminally investigate or prosecute any alcohol or drug abuse patient.[facility] HospitalIn the event this information is protected by the Federal Confidentiality of Alcohol and Drug Abuse Patient Records regulations: The Federal rules restrict any use of the information to criminally investigate or prosecute any alcohol or drug abuse patient.[facility] HospitalIn the event this information is protected by the Federal Confidentiality of Alcohol and Drug Abuse Patient Records regulations: The Federal rules restrict any use of the information to criminally investigate or prosecute any alcohol or drug abuse patient.[facility] HospitalIn the event this information is protected by the Federal Confidentiality of Alcohol and Drug Abuse Patient Records regulations: The Federal rules restrict any use of the information to criminally investigate or prosecute any alcohol or drug abuse patient.[facility] HospitalIn the event this information is protected by the Federal Confidentiality of Alcohol and Drug Abuse Patient Records regulations: The Federal rules restrict any use of the information to criminally investigate or prosecute any alcohol or drug abuse patient.[facility] HospitalIn the event this information is protected by the Federal Confidentiality of Alcohol and Drug Abuse Patient Records regulations: The Federal rules restrict any use of the information to criminally investigate or prosecute any alcohol or drug abuse patient.[facility] HospitalIn the event this information is protected by the Federal Confidentiality of Alcohol and Drug Abuse Patient Records regulations: The Federal rules restrict any use of the information to criminally investigate or prosecute any alcohol or drug abuse patient.[facility] HospitalIn the event this information is protected by the Federal Confidentiality of Alcohol and Drug Abuse Patient Records regulations: The Federal rules restrict any use of the information to criminally investigate or prosecute any alcohol or drug abuse patient.[facility] HospitalIn the event this information is protected by the Federal Confidentiality of Alcohol and Drug Abuse Patient Records regulations: The Federal rules restrict any use of the information to criminally investigate or prosecute any alcohol or drug abuse patient.[facility] HospitalIn the event this information is protected by the Federal Confidentiality of Alcohol and Drug Abuse Patient Records regulations: The Federal rules restrict any use of the information to criminally investigate or prosecute any alcohol or drug abuse patient.[facility] HospitalIn the event this information is protected by the Federal Confidentiality of Alcohol and Drug Abuse Patient Records regulations: The Federal rules restrict any use of the information to criminally investigate or prosecute any alcohol or drug abuse patient.[facility] HospitalIn the event this information is protected by the Federal Confidentiality of Alcohol and Drug Abuse Patient Records regulations: The Federal rules restrict any use of the information to criminally investigate or prosecute any alcohol or drug abuse patient.[facility] HospitalIn the event this information is protected by the Federal Confidentiality of Alcohol and Drug Abuse Patient Records regulations: The Federal rules restrict any use of the information to criminally investigate or prosecute any alcohol or drug abuse patient.[facility] HospitalIn the event this information is protected by the Federal Confidentiality of Alcohol and Drug Abuse Patient Records regulations: The Federal rules restrict any use of the information to criminally investigate or prosecute any alcohol or drug abuse patient.[facility] HospitalIn the event this information is protected by the Federal Confidentiality of Alcohol and Drug Abuse Patient Records regulations: The Federal rules restrict any use of the information to criminally investigate or prosecute any alcohol or drug abuse patient.[facility] HospitalIn the event this information is protected by the Federal Confidentiality of Alcohol and Drug Abuse Patient Records regulations: The Federal rules restrict any use of the information to criminally investigate or prosecute any alcohol or drug abuse patient.[facility] HospitalIn the event this information is protected by the Federal Confidentiality of Alcohol and Drug Abuse Patient Records regulations: The Federal rules restrict any use of the information to criminally investigate or prosecute any alcohol or drug abuse patient.[facility] HospitalIn the event this information is protected by the Federal Confidentiality of Alcohol and Drug Abuse Patient Records regulations: The Federal rules restrict any use of the information to criminally investigate or prosecute any alcohol or drug abuse patient.[facility] HospitalIn the event this information is protected by the Federal Confidentiality of Alcohol and Drug Abuse Patient Records regulations: The Federal rules restrict any use of the information to criminally investigate or prosecute any alcohol or drug abuse patient.[facility] HospitalIn the event this information is protected by the Federal Confidentiality of Alcohol and Drug Abuse Patient Records regulations: The Federal rules restrict any use of the information to criminally investigate or prosecute any alcohol or drug abuse patient.[facility] HospitalIn the event this information is protected by the Federal Confidentiality of Alcohol and Drug Abuse Patient Records regulations: The Federal rules restrict any use of the information to criminally investigate or prosecute any alcohol or drug abuse patient.[facility] HospitalIn the event this information is protected by the Federal Confidentiality of Alcohol and Drug Abuse Patient Records regulations: The Federal rules restrict any use of the information to criminally investigate or prosecute any alcohol or drug abuse patient.[facility] HospitalIn the event this information is protected by the Federal Confidentiality of Alcohol and Drug Abuse Patient Records regulations: The Federal rules restrict any use of the information to criminally investigate or prosecute any alcohol or drug abuse patient.[facility] HospitalIn the event this information is protected by the Federal Confidentiality of Alcohol and Drug Abuse Patient Records regulations: The Federal rules restrict any use of the information to criminally investigate or prosecute any alcohol or drug abuse patient.[facility] HospitalIn the event this information is protected by the Federal Confidentiality of Alcohol and Drug Abuse Patient Records regulations: The Federal rules restrict any use of the information to criminally investigate or prosecute any alcohol or drug abuse patient.[facility] HospitalIn the event this information is protected by the Federal Confidentiality of Alcohol and Drug Abuse Patient Records regulations: The Federal rules restrict any use of the information to criminally investigate or prosecute any alcohol or drug abuse patient.[facility] HospitalIn the event this information is protected by the Federal Confidentiality of Alcohol and Drug Abuse Patient Records regulations: The Federal rules restrict any use of the information to criminally investigate or prosecute any alcohol or drug abuse patient.[facility] HospitalIn the event this information is protected by the Federal Confidentiality of Alcohol and Drug Abuse Patient Records regulations: The Federal rules restrict any use of the information to criminally investigate or prosecute any alcohol or drug abuse patient.[facility] HospitalIn the event this information is protected by the Federal Confidentiality of Alcohol and Drug Abuse Patient Records regulations: The Federal rules restrict any use of the information to criminally investigate or prosecute any alcohol or drug abuse patient.[facility] HospitalIn the event this information is protected by the Federal Confidentiality of Alcohol and Drug Abuse Patient Records regulations: The Federal rules restrict any use of the information to criminally investigate or prosecute any alcohol or drug abuse patient.[facility] HospitalIn the event this information is protected by the Federal Confidentiality of Alcohol and Drug Abuse Patient Records regulations: The Federal rules restrict any use of the information to criminally investigate or prosecute any alcohol or drug abuse patient.[facility] HospitalIn the event this information is protected by the Federal Confidentiality of Alcohol and Drug Abuse Patient Records regulations: The Federal rules restrict any use of the information to criminally investigate or prosecute any alcohol or drug abuse patient.[facility] HospitalIn the event this information is protected by the Federal Confidentiality of Alcohol and Drug Abuse Patient Records regulations: The Federal rules restrict any use of the information to criminally investigate or prosecute any alcohol or drug abuse patient.[facility] HospitalIn the event this information is protected by the Federal Confidentiality of Alcohol and Drug Abuse Patient Records regulations: The Federal rules restrict any use of the information to criminally investigate or prosecute any alcohol or drug abuse patient.[facility] HospitalIn the event this information is protected by the Federal Confidentiality of Alcohol and Drug Abuse Patient Records regulations: The Federal rules restrict any use of the information to criminally investigate or prosecute any alcohol or drug abuse patient.[facility] HospitalIn the event this information is protected by the Federal Confidentiality of Alcohol and Drug Abuse Patient Records regulations: The Federal rules restrict any use of the information to criminally investigate or prosecute any alcohol or drug abuse patient.[facility] HospitalIn the event this information is protected by the Federal Confidentiality of Alcohol and Drug Abuse Patient Records regulations: The Federal rules restrict any use of the information to criminally investigate or prosecute any alcohol or drug abuse patient.[facility] HospitalIn the event this information is protected by the Federal Confidentiality of Alcohol and Drug Abuse Patient Records regulations: The Federal rules restrict any use of the information to criminally investigate or prosecute any alcohol or drug abuse patient.[facility] HospitalIn the event this information is protected by the Federal Confidentiality of Alcohol and Drug Abuse Patient Records regulations: The Federal rules restrict any use of the information to criminally investigate or prosecute any alcohol or drug abuse patient.[facility] HospitalIn the event this information is protected by the Federal Confidentiality of Alcohol and Drug Abuse Patient Records regulations: The Federal rules restrict any use of the information to criminally investigate or prosecute any alcohol or drug abuse patient.[facility] HospitalIn the event this information is protected by the Federal Confidentiality of Alcohol and Drug Abuse Patient Records regulations: The Federal rules restrict any use of the information to criminally investigate or prosecute any alcohol or drug abuse patient.[facility] HospitalIn the event this information is protected by the Federal Confidentiality of Alcohol and Drug Abuse Patient Records regulations: The Federal rules restrict any use of the information to criminally investigate or prosecute any alcohol or drug abuse patient.[facility] HospitalIn the event this information is protected by the Federal Confidentiality of Alcohol and Drug Abuse Patient Records regulations: The Federal rules restrict any use of the information to criminally investigate or prosecute any alcohol or drug abuse patient.[facility] HospitalIn the event this information is protected by the Federal Confidentiality of Alcohol and Drug Abuse Patient Records regulations: The Federal rules restrict any use of the information to criminally investigate or prosecute any alcohol or drug abuse patient.[facility] HospitalIn the event this information is protected by the Federal Confidentiality of Alcohol and Drug Abuse Patient Records regulations: The Federal rules restrict any use of the information to criminally investigate or prosecute any alcohol or drug abuse patient.[facility] HospitalIn the event this information is protected by the Federal Confidentiality of Alcohol and Drug Abuse Patient Records regulations: The Federal rules restrict any use of the information to criminally investigate or prosecute any alcohol or drug abuse patient.[facility] HospitalIn the event this information is protected by the Federal Confidentiality of Alcohol and Drug Abuse Patient Records regulations: The Federal rules restrict any use of the information to criminally investigate or prosecute any alcohol or drug abuse patient.[facility] HospitalIn the event this information is protected by the Federal Confidentiality of Alcohol and Drug Abuse Patient Records regulations: The Federal rules restrict any use of the information to criminally investigate or prosecute any alcohol or drug abuse patient.[facility] HospitalIn the event this information is protected by the Federal Confidentiality of Alcohol and Drug Abuse Patient Records regulations: The Federal rules restrict any use of the information to criminally investigate or prosecute any alcohol or drug abuse patient.[facility] HospitalIn the event this information is protected by the Federal Confidentiality of Alcohol and Drug Abuse Patient Records regulations: The Federal rules restrict any use of the information to criminally investigate or prosecute any alcohol or drug abuse patient.[facility] HospitalIn the event this information is protected by the Federal Confidentiality of Alcohol and Drug Abuse Patient Records regulations: The Federal rules restrict any use of the information to criminally investigate or prosecute any alcohol or drug abuse patient.[facility] HospitalIn the event this information is protected by the Federal Confidentiality of Alcohol and Drug Abuse Patient Records regulations: The Federal rules restrict any use of the information to criminally investigate or prosecute any alcohol or drug abuse patient.[facility] HospitalIn the event this information is protected by the Federal Confidentiality of Alcohol and Drug Abuse Patient Records regulations: The Federal rules restrict any use of the information to criminally investigate or prosecute any alcohol or drug abuse patient.[facility] HospitalIn the event this information is protected by the Federal Confidentiality of Alcohol and Drug Abuse Patient Records regulations: The Federal rules restrict any use of the information to criminally investigate or prosecute any alcohol or drug abuse patient.[facility] HospitalIn the event this information is protected by the Federal Confidentiality of Alcohol and Drug Abuse Patient Records regulations: The Federal rules restrict any use of the information to criminally investigate or prosecute any alcohol or drug abuse patient.[facility] HospitalIn the event this information is protected by the Federal Confidentiality of Alcohol and Drug Abuse Patient Records regulations: The Federal rules restrict any use of the information to criminally investigate or prosecute any alcohol or drug abuse patient.[facility] HospitalIn the event this information is protected by the Federal Confidentiality of Alcohol and Drug Abuse Patient Records regulations: The Federal rules restrict any use of the information to criminally investigate or prosecute any alcohol or drug abuse patient.[facility] HospitalIn the event this information is protected by the Federal Confidentiality of Alcohol and Drug Abuse Patient Records regulations: The Federal rules restrict any use of the information to criminally investigate or prosecute any alcohol or drug abuse patient.[facility] HospitalIn the event this information is protected by the Federal Confidentiality of Alcohol and Drug Abuse Patient Records regulations: The Federal rules restrict any use of the information to criminally investigate or prosecute any alcohol or drug abuse patient.[facility] HospitalIn the event this information is protected by the Federal Confidentiality of Alcohol and Drug Abuse Patient Records regulations: The Federal rules restrict any use of the information to criminally investigate or prosecute any alcohol or drug abuse patient.[facility] HospitalIn the event this information is protected by the Federal Confidentiality of Alcohol and Drug Abuse Patient Records regulations: The Federal rules restrict any use of the information to criminally investigate or prosecute any alcohol or drug abuse patient.[facility] HospitalIn the event this information is protected by the Federal Confidentiality of Alcohol and Drug Abuse Patient Records regulations: The Federal rules restrict any use of the information to criminally investigate or prosecute any alcohol or drug abuse patient.[facility] HospitalIn the event this information is protected by the Federal Confidentiality of Alcohol and Drug Abuse Patient Records regulations: The Federal rules restrict any use of the information to criminally investigate or prosecute any alcohol or drug abuse patient.[facility] HospitalIn the event this information is protected by the Federal Confidentiality of Alcohol and Drug Abuse Patient Records regulations: The Federal rules restrict any use of the information to criminally investigate or prosecute any alcohol or drug abuse patient.[facility] HospitalIn the event this information is protected by the Federal Confidentiality of Alcohol and Drug Abuse Patient Records regulations: The Federal rules restrict any use of the information to criminally investigate or prosecute any alcohol or drug abuse patient.[facility] HospitalIn the event this information is protected by the Federal Confidentiality of Alcohol and Drug Abuse Patient Records regulations: The Federal rules restrict any use of the information to criminally investigate or prosecute any alcohol or drug abuse patient.[facility] HospitalIn the event this information is protected by the Federal Confidentiality of Alcohol and Drug Abuse Patient Records regulations: The Federal rules restrict any use of the information to criminally investigate or prosecute any alcohol or drug abuse patient.[facility] HospitalIn the event this information is protected by the Federal Confidentiality of Alcohol and Drug Abuse Patient Records regulations: The Federal rules restrict any use of the information to criminally investigate or prosecute any alcohol or drug abuse patient.[facility] HospitalIn the event this information is protected by the Federal Confidentiality of Alcohol and Drug Abuse Patient Records regulations: The Federal rules restrict any use of the information to criminally investigate or prosecute any alcohol or drug abuse patient.[facility] HospitalIn the event this information is protected by the Federal Confidentiality of Alcohol and Drug Abuse Patient Records regulations: The Federal rules restrict any use of the information to criminally investigate or prosecute any alcohol or drug abuse patient.[facility] HospitalIn the event this information is protected by the Federal Confidentiality of Alcohol and Drug Abuse Patient Records regulations: The Federal rules restrict any use of the information to criminally investigate or prosecute any alcohol or drug abuse patient.[facility] HospitalIn the event this information is protected by the Federal Confidentiality of Alcohol and Drug Abuse Patient Records regulations: The Federal rules restrict any use of the information to criminally investigate or prosecute any alcohol or drug abuse patient.[facility] HospitalIn the event this information is protected by the Federal Confidentiality of Alcohol and Drug Abuse Patient Records regulations: The Federal rules restrict any use of the information to criminally investigate or prosecute any alcohol or drug abuse patient.[facility] HospitalIn the event this information is protected by the Federal Confidentiality of Alcohol and Drug Abuse Patient Records regulations: The Federal rules restrict any use of the information to criminally investigate or prosecute any alcohol or drug abuse patient.[facility] HospitalIn the event this information is protected by the Federal Confidentiality of Alcohol and Drug Abuse Patient Records regulations: The Federal rules restrict any use of the information to criminally investigate or prosecute any alcohol or drug abuse patient.[facility] HospitalIn the event this information is protected by the Federal Confidentiality of Alcohol and Drug Abuse Patient Records regulations: The Federal rules restrict any use of the information to criminally investigate or prosecute any alcohol or drug abuse patient.[facility] HospitalIn the event this information is protected by the Federal Confidentiality of Alcohol and Drug Abuse Patient Records regulations: The Federal rules restrict any use of the information to criminally investigate or prosecute any alcohol or drug abuse patient.[facility] HospitalIn the event this information is protected by the Federal Confidentiality of Alcohol and Drug Abuse Patient Records regulations: The Federal rules restrict any use of the information to criminally investigate or prosecute any alcohol or drug abuse patient.[facility] HospitalIn the event this information is protected by the Federal Confidentiality of Alcohol and Drug Abuse Patient Records regulations: The Federal rules restrict any use of the information to criminally investigate or prosecute any alcohol or drug abuse patient.[facility] HospitalIn the event this information is protected by the Federal Confidentiality of Alcohol and Drug Abuse Patient Records regulations: The Federal rules restrict any use of the information to criminally investigate or prosecute any alcohol or drug abuse patient.[facility] HospitalIn the event this information is protected by the Federal Confidentiality of Alcohol and Drug Abuse Patient Records regulations: The Federal rules restrict any use of the information to criminally investigate or prosecute any alcohol or drug abuse patient.[facility] HospitalIn the event this information is protected by the Federal Confidentiality of Alcohol and Drug Abuse Patient Records regulations: The Federal rules restrict any use of the information to criminally investigate or prosecute any alcohol or drug abuse patient.[facility] HospitalIn the event this information is protected by the Federal Confidentiality of Alcohol and Drug Abuse Patient Records regulations: The Federal rules restrict any use of the information to criminally investigate or prosecute any alcohol or drug abuse patient.[facility] HospitalIn the event this information is protected by the Federal Confidentiality of Alcohol and Drug Abuse Patient Records regulations: The Federal rules restrict any use of the information to criminally investigate or prosecute any alcohol or drug abuse patient.[facility] HospitalIn the event this information is protected by the Federal Confidentiality of Alcohol and Drug Abuse Patient Records regulations: The Federal rules restrict any use of the information to criminally investigate or prosecute any alcohol or drug abuse patient.[facility] HospitalIn the event this information is protected by the Federal Confidentiality of Alcohol and Drug Abuse Patient Records regulations: The Federal rules restrict any use of the information to criminally investigate or prosecute any alcohol or drug abuse patient.[facility] HospitalIn the event this information is protected by the Federal Confidentiality of Alcohol and Drug Abuse Patient Records regulations: The Federal rules restrict any use of the information to criminally investigate or prosecute any alcohol or drug abuse patient.[facility] HospitalIn the event this information is protected by the Federal Confidentiality of Alcohol and Drug Abuse Patient Records regulations: The Federal rules restrict any use of the information to criminally investigate or prosecute any alcohol or drug abuse patient.[facility] HospitalIn the event this information is protected by the Federal Confidentiality of Alcohol and Drug Abuse Patient Records regulations: The Federal rules restrict any use of the information to criminally investigate or prosecute any alcohol or drug abuse patient.[facility] HospitalIn the event this information is protected by the Federal Confidentiality of Alcohol and Drug Abuse Patient Records regulations: The Federal rules restrict any use of the information to criminally investigate or prosecute any alcohol or drug abuse patient.[facility] HospitalIn the event this information is protected by the Federal Confidentiality of Alcohol and Drug Abuse Patient Records regulations: The Federal rules restrict any use of the information to criminally investigate or prosecute any alcohol or drug abuse patient.[facility] HospitalIn the event this information is protected by the Federal Confidentiality of Alcohol and Drug Abuse Patient Records regulations: The Federal rules restrict any use of the information to criminally investigate or prosecute any alcohol or drug abuse patient.[facility] HospitalIn the event this information is protected by the Federal Confidentiality of Alcohol and Drug Abuse Patient Records regulations: The Federal rules restrict any use of the information to criminally investigate or prosecute any alcohol or drug abuse patient.[facility] HospitalIn the event this information is protected by the Federal Confidentiality of Alcohol and Drug Abuse Patient Records regulations: The Federal rules restrict any use of the information to criminally investigate or prosecute any alcohol or drug abuse patient.[facility] HospitalIn the event this information is protected by the Federal Confidentiality of Alcohol and Drug Abuse Patient Records regulations: The Federal rules restrict any use of the information to criminally investigate or prosecute any alcohol or drug abuse patient.[facility] HospitalIn the event this information is protected by the Federal Confidentiality of Alcohol and Drug Abuse Patient Records regulations: The Federal rules restrict any use of the information to criminally investigate or prosecute any alcohol or drug abuse patient.[facility] HospitalIn the event this information is protected by the Federal Confidentiality of Alcohol and Drug Abuse Patient Records regulations: The Federal rules restrict any use of the information to criminally investigate or prosecute any alcohol or drug abuse patient.[facility] HospitalIn the event this information is protected by the Federal Confidentiality of Alcohol and Drug Abuse Patient Records regulations: The Federal rules restrict any use of the information to criminally investigate or prosecute any alcohol or drug abuse patient.[facility] HospitalIn the event this information is protected by the Federal Confidentiality of Alcohol and Drug Abuse Patient Records regulations: The Federal rules restrict any use of the information to criminally investigate or prosecute any alcohol or drug abuse patient.[facility] HospitalIn the event this information is protected by the Federal Confidentiality of Alcohol and Drug Abuse Patient Records regulations: The Federal rules restrict any use of the information to criminally investigate or prosecute any alcohol or drug abuse patient.[facility] HospitalIn the event this information is protected by the Federal Confidentiality of Alcohol and Drug Abuse Patient Records regulations: The Federal rules restrict any use of the information to criminally investigate or prosecute any alcohol or drug abuse patient.[facility] HospitalIn the event this information is protected by the Federal Confidentiality of Alcohol and Drug Abuse Patient Records regulations: The Federal rules restrict any use of the information to criminally investigate or prosecute any alcohol or drug abuse patient.[facility] HospitalIn the event this information is protected by the Federal Confidentiality of Alcohol and Drug Abuse Patient Records regulations: The Federal rules restrict any use of the information to criminally investigate or prosecute any alcohol or drug abuse patient.[facility] HospitalIn the event this information is protected by the Federal Confidentiality of Alcohol and Drug Abuse Patient Records regulations: The Federal rules restrict any use of the information to criminally investigate or prosecute any alcohol or drug abuse patient.[facility] HospitalIn the event this information is protected by the Federal Confidentiality of Alcohol and Drug Abuse Patient Records regulations: The Federal rules restrict any use of the information to criminally investigate or prosecute any alcohol or drug abuse patient.[facility] HospitalIn the event this information is protected by the Federal Confidentiality of Alcohol and Drug Abuse Patient Records regulations: The Federal rules restrict any use of the information to criminally investigate or prosecute any alcohol or drug abuse patient.[facility] HospitalIn the event this information is protected by the Federal Confidentiality of Alcohol and Drug Abuse Patient Records regulations: The Federal rules restrict any use of the information to criminally investigate or prosecute any alcohol or drug abuse patient.[facility] HospitalIn the event this information is protected by the Federal Confidentiality of Alcohol and Drug Abuse Patient Records regulations: The Federal rules restrict any use of the information to criminally investigate or prosecute any alcohol or drug abuse patient.[facility] HospitalIn the event this information is protected by the Federal Confidentiality of Alcohol and Drug Abuse Patient Records regulations: The Federal rules restrict any use of the information to criminally investigate or prosecute any alcohol or drug abuse patient.[facility] HospitalIn the event this information is protected by the Federal Confidentiality of Alcohol and Drug Abuse Patient Records regulations: The Federal rules restrict any use of the information to criminally investigate or prosecute any alcohol or drug abuse patient.[facility] HospitalIn the event this information is protected by the Federal Confidentiality of Alcohol and Drug Abuse Patient Records regulations: The Federal rules restrict any use of the information to criminally investigate or prosecute any alcohol or drug abuse patient.[facility] HospitalIn the event this information is protected by the Federal Confidentiality of Alcohol and Drug Abuse Patient Records regulations: The Federal rules restrict any use of the information to criminally investigate or prosecute any alcohol or drug abuse patient.[facility] HospitalIn the event this information is protected by the Federal Confidentiality of Alcohol and Drug Abuse Patient Records regulations: The Federal rules restrict any use of the information to criminally investigate or prosecute any alcohol or drug abuse patient.[facility] HospitalIn the event this information is protected by the Federal Confidentiality of Alcohol and Drug Abuse Patient Records regulations: The Federal rules restrict any use of the information to criminally investigate or prosecute any alcohol or drug abuse patient.[facility] HospitalIn the event this information is protected by the Federal Confidentiality of Alcohol and Drug Abuse Patient Records regulations: The Federal rules restrict any use of the information to criminally investigate or prosecute any alcohol or drug abuse patient.[facility] HospitalIn the event this information is protected by the Federal Confidentiality of Alcohol and Drug Abuse Patient Records regulations: The Federal rules restrict any use of the information to criminally investigate or prosecute any alcohol or drug abuse patient.[facility] HospitalIn the event this information is protected by the Federal Confidentiality of Alcohol and Drug Abuse Patient Records regulations: The Federal rules restrict any use of the information to criminally investigate or prosecute any alcohol or drug abuse patient.[facility] HospitalIn the event this information is protected by the Federal Confidentiality of Alcohol and Drug Abuse Patient Records regulations: The Federal rules restrict any use of the information to criminally investigate or prosecute any alcohol or drug abuse patient.[facility] HospitalIn the event this information is protected by the Federal Confidentiality of Alcohol and Drug Abuse Patient Records regulations: The Federal rules restrict any use of the information to criminally investigate or prosecute any alcohol or drug abuse patient.[facility] HospitalIn the event this information is protected by the Federal Confidentiality of Alcohol and Drug Abuse Patient Records regulations: The Federal rules restrict any use of the information to criminally investigate or prosecute any alcohol or drug abuse patient.[facility] HospitalIn the event this information is protected by the Federal Confidentiality of Alcohol and Drug Abuse Patient Records regulations: The Federal rules restrict any use of the information to criminally investigate or prosecute any alcohol or drug abuse patient.[facility] HospitalIn the event this information is protected by the Federal Confidentiality of Alcohol and Drug Abuse Patient Records regulations: The Federal rules restrict any use of the information to criminally investigate or prosecute any alcohol or drug abuse patient.[facility] HospitalIn the event this information is protected by the Federal Confidentiality of Alcohol and Drug Abuse Patient Records regulations: The Federal rules restrict any use of the information to criminally investigate or prosecute any alcohol or drug abuse patient.[facility] HospitalIn the event this information is protected by the Federal Confidentiality of Alcohol and Drug Abuse Patient Records regulations: The Federal rules restrict any use of the information to criminally investigate or prosecute any alcohol or drug abuse patient.[facility] HospitalIn the event this information is protected by the Federal Confidentiality of Alcohol and Drug Abuse Patient Records regulations: The Federal rules restrict any use of the information to criminally investigate or prosecute any alcohol or drug abuse patient.[facility] HospitalIn the event this information is protected by the Federal Confidentiality of Alcohol and Drug Abuse Patient Records regulations: The Federal rules restrict any use of the information to criminally investigate or prosecute any alcohol or drug abuse patient.[facility] HospitalIn the event this information is protected by the Federal Confidentiality of Alcohol and Drug Abuse Patient Records regulations: The Federal rules restrict any use of the information to criminally investigate or prosecute any alcohol or drug abuse patient.[facility] HospitalIn the event this information is protected by the Federal Confidentiality of Alcohol and Drug Abuse Patient Records regulations: The Federal rules restrict any use of the information to criminally investigate or prosecute any alcohol or drug abuse patient.[facility] HospitalIn the event this information is protected by the Federal Confidentiality of Alcohol and Drug Abuse Patient Records regulations: The Federal rules restrict any use of the information to criminally investigate or prosecute any alcohol or drug abuse patient.[facility] HospitalIn the event this information is protected by the Federal Confidentiality of Alcohol and Drug Abuse Patient Records regulations: The Federal rules restrict any use of the information to criminally investigate or prosecute any alcohol or drug abuse patient.[facility] HospitalIn the event this information is protected by the Federal Confidentiality of Alcohol and Drug Abuse Patient Records regulations: The Federal rules restrict any use of the information to criminally investigate or prosecute any alcohol or drug abuse patient.[facility] HospitalIn the event this information is protected by the Federal Confidentiality of Alcohol and Drug Abuse Patient Records regulations: The Federal rules restrict any use of the information to criminally investigate or prosecute any alcohol or drug abuse patient.[facility] HospitalIn the event this information is protected by the Federal Confidentiality of Alcohol and Drug Abuse Patient Records regulations: The Federal rules restrict any use of the information to criminally investigate or prosecute any alcohol or drug abuse patient.[facility] HospitalIn the event this information is protected by the Federal Confidentiality of Alcohol and Drug Abuse Patient Records regulations: The Federal rules restrict any use of the information to criminally investigate or prosecute any alcohol or drug abuse patient.[facility] HospitalIn the event this information is protected by the Federal Confidentiality of Alcohol and Drug Abuse Patient Records regulations: The Federal rules restrict any use of the information to criminally investigate or prosecute any alcohol or drug abuse patient.[facility] HospitalIn the event this information is protected by the Federal Confidentiality of Alcohol and Drug Abuse Patient Records regulations: The Federal rules restrict any use of the information to criminally investigate or prosecute any alcohol or drug abuse patient.[facility] HospitalIn the event this information is protected by the Federal Confidentiality of Alcohol and Drug Abuse Patient Records regulations: The Federal rules restrict any use of the information to criminally investigate or prosecute any alcohol or drug abuse patient.[facility] HospitalIn the event this information is protected by the Federal Confidentiality of Alcohol and Drug Abuse Patient Records regulations: The Federal rules restrict any use of the information to criminally investigate or prosecute any alcohol or drug abuse patient.[facility] HospitalIn the event this information is protected by the Federal Confidentiality of Alcohol and Drug Abuse Patient Records regulations: The Federal rules restrict any use of the information to criminally investigate or prosecute any alcohol or drug abuse patient.[facility] HospitalIn the event this information is protected by the Federal Confidentiality of Alcohol and Drug Abuse Patient Records regulations: The Federal rules restrict any use of the information to criminally investigate or prosecute any alcohol or drug abuse patient.[facility] HospitalIn the event this information is protected by the Federal Confidentiality of Alcohol and Drug Abuse Patient Records regulations: The Federal rules restrict any use of the information to criminally investigate or prosecute any alcohol or drug abuse patient.[facility] HospitalIn the event this information is protected by the Federal Confidentiality of Alcohol and Drug Abuse Patient Records regulations: The Federal rules restrict any use of the information to criminally investigate or prosecute any alcohol or drug abuse patient.[facility] HospitalIn the event this information is protected by the Federal Confidentiality of Alcohol and Drug Abuse Patient Records regulations: The Federal rules restrict any use of the information to criminally investigate or prosecute any alcohol or drug abuse patient.[facility] HospitalIn the event this information is protected by the Federal Confidentiality of Alcohol and Drug Abuse Patient Records regulations: The Federal rules restrict any use of the information to criminally investigate or prosecute any alcohol or drug abuse patient.[facility] HospitalIn the event this information is protected by the Federal Confidentiality of Alcohol and Drug Abuse Patient Records regulations: The Federal rules restrict any use of the information to criminally investigate or prosecute any alcohol or drug abuse patient.[facility] HospitalIn the event this information is protected by the Federal Confidentiality of Alcohol and Drug Abuse Patient Records regulations: The Federal rules restrict any use of the information to criminally investigate or prosecute any alcohol or drug abuse patient.[facility] HospitalIn the event this information is protected by the Federal Confidentiality of Alcohol and Drug Abuse Patient Records regulations: The Federal rules restrict any use of the information to criminally investigate or prosecute any alcohol or drug abuse patient.[facility] HospitalIn the event this information is protected by the Federal Confidentiality of Alcohol and Drug Abuse Patient Records regulations: The Federal rules restrict any use of the information to criminally investigate or prosecute any alcohol or drug abuse patient.[facility] HospitalIn the event this information is protected by the Federal Confidentiality of Alcohol and Drug Abuse Patient Records regulations: The Federal rules restrict any use of the information to criminally investigate or prosecute any alcohol or drug abuse patient.[facility] HospitalIn the event this information is protected by the Federal Confidentiality of Alcohol and Drug Abuse Patient Records regulations: The Federal rules restrict any use of the information to criminally investigate or prosecute any alcohol or drug abuse patient.[facility] HospitalIn the event this information is protected by the Federal Confidentiality of Alcohol and Drug Abuse Patient Records regulations: The Federal rules restrict any use of the information to criminally investigate or prosecute any alcohol or drug abuse patient.[facility] HospitalIn the event this information is protected by the Federal Confidentiality of Alcohol and Drug Abuse Patient Records regulations: The Federal rules restrict any use of the information to criminally investigate or prosecute any alcohol or drug abuse patient.[facility] HospitalIn the event this information is protected by the Federal Confidentiality of Alcohol and Drug Abuse Patient Records regulations: The Federal rules restrict any use of the information to criminally investigate or prosecute any alcohol or drug abuse patient.[facility] HospitalIn the event this information is protected by the Federal Confidentiality of Alcohol and Drug Abuse Patient Records regulations: The Federal rules restrict any use of the information to criminally investigate or prosecute any alcohol or drug abuse patient.[facility] HospitalIn the event this information is protected by the Federal Confidentiality of Alcohol and Drug Abuse Patient Records regulations: The Federal rules restrict any use of the information to criminally investigate or prosecute any alcohol or drug abuse patient.[facility] HospitalIn the event this information is protected by the Federal Confidentiality of Alcohol and Drug Abuse Patient Records regulations: The Federal rules restrict any use of the information to criminally investigate or prosecute any alcohol or drug abuse patient.[facility] HospitalIn the event this information is protected by the Federal Confidentiality of Alcohol and Drug Abuse Patient Records regulations: The Federal rules restrict any use of the information to criminally investigate or prosecute any alcohol or drug abuse patient.[facility] HospitalIn the event this information is protected by the Federal Confidentiality of Alcohol and Drug Abuse Patient Records regulations: The Federal rules restrict any use of the information to criminally investigate or prosecute any alcohol or drug abuse patient.[facility] HospitalIn the event this information is protected by the Federal Confidentiality of Alcohol and Drug Abuse Patient Records regulations: The Federal rules restrict any use of the information to criminally investigate or prosecute any alcohol or drug abuse patient.[facility] HospitalIn the event this information is protected by the Federal Confidentiality of Alcohol and Drug Abuse Patient Records regulations: The Federal rules restrict any use of the information to criminally investigate or prosecute any alcohol or drug abuse patient.[facility] HospitalIn the event this information is protected by the Federal Confidentiality of Alcohol and Drug Abuse Patient Records regulations: The Federal rules restrict any use of the information to criminally investigate or prosecute any alcohol or drug abuse patient.[facility] HospitalIn the event this information is protected by the Federal Confidentiality of Alcohol and Drug Abuse Patient Records regulations: The Federal rules restrict any use of the information to criminally investigate or prosecute any alcohol or drug abuse patient.[facility] HospitalIn the event this information is protected by the Federal Confidentiality of Alcohol and Drug Abuse Patient Records regulations: The Federal rules restrict any use of the information to criminally investigate or prosecute any alcohol or drug abuse patient.[facility] HospitalIn the event this information is protected by the Federal Confidentiality of Alcohol and Drug Abuse Patient Records regulations: The Federal rules restrict any use of the information to criminally investigate or prosecute any alcohol or drug abuse patient.[facility] HospitalIn the event this information is protected by the Federal Confidentiality of Alcohol and Drug Abuse Patient Records regulations: The Federal rules restrict any use of the information to criminally investigate or prosecute any alcohol or drug abuse patient.[facility] HospitalIn the event this information is protected by the Federal Confidentiality of Alcohol and Drug Abuse Patient Records regulations: The Federal rules restrict any use of the information to criminally investigate or prosecute any alcohol or drug abuse patient.[facility] HospitalIn the event this information is protected by the Federal Confidentiality of Alcohol and Drug Abuse Patient Records regulations: The Federal rules restrict any use of the information to criminally investigate or prosecute any alcohol or drug abuse patient.[facility] HospitalIn the event this information is protected by the Federal Confidentiality of Alcohol and Drug Abuse Patient Records regulations: The Federal rules restrict any use of the information to criminally investigate or prosecute any alcohol or drug abuse patient.[facility] HospitalIn the event this information is protected by the Federal Confidentiality of Alcohol and Drug Abuse Patient Records regulations: The Federal rules restrict any use of the information to criminally investigate or prosecute any alcohol or drug abuse patient.[facility] HospitalIn the event this information is protected by the Federal Confidentiality of Alcohol and Drug Abuse Patient Records regulations: The Federal rules restrict any use of the information to criminally investigate or prosecute any alcohol or drug abuse patient.[facility] HospitalIn the event this information is protected by the Federal Confidentiality of Alcohol and Drug Abuse Patient Records regulations: The Federal rules restrict any use of the information to criminally investigate or prosecute any alcohol or drug abuse patient.[facility] HospitalIn the event this information is protected by the Federal Confidentiality of Alcohol and Drug Abuse Patient Records regulations: The Federal rules restrict any use of the information to criminally investigate or prosecute any alcohol or drug abuse patient.[facility] HospitalIn the event this information is protected by the Federal Confidentiality of Alcohol and Drug Abuse Patient Records regulations: The Federal rules restrict any use of the information to criminally investigate or prosecute any alcohol or drug abuse patient.[facility] HospitalIn the event this information is protected by the Federal Confidentiality of Alcohol and Drug Abuse Patient Records regulations: The Federal rules restrict any use of the information to criminally investigate or prosecute any alcohol or drug abuse patient.[facility] HospitalIn the event this information is protected by the Federal Confidentiality of Alcohol and Drug Abuse Patient Records regulations: The Federal rules restrict any use of the information to criminally investigate or prosecute any alcohol or drug abuse patient.[facility] HospitalIn the event this information is protected by the Federal Confidentiality of Alcohol and Drug Abuse Patient Records regulations: The Federal rules restrict any use of the information to criminally investigate or prosecute any alcohol or drug abuse patient.[facility] HospitalIn the event this information is protected by the Federal Confidentiality of Alcohol and Drug Abuse Patient Records regulations: The Federal rules restrict any use of the information to criminally investigate or prosecute any alcohol or drug abuse patient.[facility] HospitalIn the event this information is protected by the Federal Confidentiality of Alcohol and Drug Abuse Patient Records regulations: The Federal rules restrict any use of the information to criminally investigate or prosecute any alcohol or drug abuse patient.[facility] HospitalIn the event this information is protected by the Federal Confidentiality of Alcohol and Drug Abuse Patient Records regulations: The Federal rules restrict any use of the information to criminally investigate or prosecute any alcohol or drug abuse patient.[facility] HospitalIn the event this information is protected by the Federal Confidentiality of Alcohol and Drug Abuse Patient Records regulations: The Federal rules restrict any use of the information to criminally investigate or prosecute any alcohol or drug abuse patient.[facility] HospitalIn the event this information is protected by the Federal Confidentiality of Alcohol and Drug Abuse Patient Records regulations: The Federal rules restrict any use of the information to criminally investigate or prosecute any alcohol or drug abuse patient.[facility] HospitalIn the event this information is protected by the Federal Confidentiality of Alcohol and Drug Abuse Patient Records regulations: The Federal rules restrict any use of the information to criminally investigate or prosecute any alcohol or drug abuse patient.[facility] HospitalIn the event this information is protected by the Federal Confidentiality of Alcohol and Drug Abuse Patient Records regulations: The Federal rules restrict any use of the information to criminally investigate or prosecute any alcohol or drug abuse patient.[facility] HospitalIn the event this information is protected by the Federal Confidentiality of Alcohol and Drug Abuse Patient Records regulations: The Federal rules restrict any use of the information to criminally investigate or prosecute any alcohol or drug abuse patient.[facility] HospitalIn the event this information is protected by the Federal Confidentiality of Alcohol and Drug Abuse Patient Records regulations: The Federal rules restrict any use of the information to criminally investigate or prosecute any alcohol or drug abuse patient.[facility] HospitalIn the event this information is protected by the Federal Confidentiality of Alcohol and Drug Abuse Patient Records regulations: The Federal rules restrict any use of the information to criminally investigate or prosecute any alcohol or drug abuse patient.[facility] HospitalIn the event this information is protected by the Federal Confidentiality of Alcohol and Drug Abuse Patient Records regulations: The Federal rules restrict any use of the information to criminally investigate or prosecute any alcohol or drug abuse patient.[facility] HospitalIn the event this information is protected by the Federal Confidentiality of Alcohol and Drug Abuse Patient Records regulations: The Federal rules restrict any use of the information to criminally investigate or prosecute any alcohol or drug abuse patient.[facility] Care Teams (unrecognized sec tion and content) Quality Control Associate Relationship Specialty Start Date End Date Jacinta Rivas MD [address] [place], [place] 2[address]31 PCP - General Internal Medicine 02/03/19 Dena Lechuga RN Specialty Public Address Systems Mechanic Oncology 04/24/17 Jesus Carter MD, [address] [place], [place] [address]641 Physician Radiation Oncology 04/24/17 Lisa Malhotra RN [address] [place] [address] Research Nurse Hematology/Oncology 05/23/18 Taz Howard MD [address] [address] Home Care Physician Orthopedics 03/20/19 Taz Howard MD [address] [address] Referring Orthopedics 03/20/19 Lizeth Acosta, PT [address] [place] [address] Sound Editor Acute Care 03/21/19 Quality Control Associate Relationship Specialty Start Date End Date Jacinta Rivas MD [address] [place] [address] PCP - General Internal Medicine 02/03/19 Dena Lechuga RN Specialty Public Address Systems Mechanic Oncology 04/24/17 Jesus Carter MD, [address] [place] [address] Physician Radiation Oncology 04/24/17 Lisa Malhotra RN [address] [place] [address] Research Nurse Hematology/Oncology 05/23/18 Taz Howard MD [address] [address] Home Care Physician Orthopedics 03/20/19 Taz Howard MD [address] [address] Referring Orthopedics 03/20/19 Lizeth Acosta, PT [address] [place] [address] Sound Editor Acute Care 03/21/19 Quality Control Associate Relationship Specialty Start Date End Date Jacinta Rivas MD [address] [place] [address] PCP - General Internal Medicine 02/03/19 Dena Lechuga RN Specialty Public Address Systems Mechanic Oncology 04/24/17 Jesus Carter MD, [address] [place] [address] Physician Radiation Oncology 04/24/17 Lisa Malhotra, FE [address] [place] [address] Research Nurse Hematology/Oncology 05/23/18 Taz Howard MD [address] [address] Home Care Physician Orthopedics 03/20/19 Taz Howard MD [address] [address] Referring Orthopedics 03/20/19 Lizeth Acosta, PT [address] [place] [address] Sound Editor Acute Care 03/21/19 Quality Control Associate Relationship Specialty Start Date End Date Jacinta Rivas MD [address] [place] [address] PCP - General Internal Medicine 02/03/19 Dena Lechuga RN Specialty Public Address Systems Mechanic Oncology 04/24/17 Jesus Carter MD, [address] [place] [address] Physician Radiation Oncology 04/24/17 Lisa Malhotra, FE [address] [place] [address] Research Nurse Hematology/Oncology 05/23/18 Taz Howard MD [address] [address] Home Care Physician Orthopedics 03/20/19 Taz Howard MD [address] [place] [address] Referring Orthopedics 03/20/19 Lizeth Acosta, PT [address] [place], [place] [id number] Sound Editor Acute Care 03/21/19 Quality Control Associate Relationship Specialty Start Date End Date Jacinta Rivas MD [address] [place] [address] PCP - General Internal Medicine 02/03/19 Dena Lechuga RN Specialty Public Address Systems Mechanic Oncology 04/24/17 Jesus Carter MD, MD [address] [place] [address] Physician Radiation Oncology 04/24/17 Lisa Malhotra, FE [address] [place] [address] Research Nurse Hematology/Oncology 05/23/18 Taz Howard MD [address] [address] Home Care Physician Orthopedics 03/20/19 Taz Howard MD [address] [address] Referring Orthopedics 03/20/19 Lizeth Acosta, PT [address] [place] [address] Sound Editor Acute Care 03/21/19 Quality Control Associate Relationship Specialty Start Date End Date Jacinta Rivas MD [address] [place] [address] PCP - General Internal Medicine 02/03/19 Dena Lechuga RN Specialty Public Address Systems Mechanic Oncology 04/24/17 Jesus Carter MD, [address] [place] [address] Physician Radiation Oncology 04/24/17 Lisa Malhotra, FE [address] [facility] [place] [address] Research Nurse Hematology/Oncology 05/23/18 Taz Howard MD [address] [address] Home Care Physician Orthopedics 03/20/19 Taz Howard MD [address] [address] Referring Orthopedics 03/20/19 Lizeth Acosta, PT [address] [place], [place] [id number] Sound Editor Acute Care 03/21/19 Quality Control Associate Relationship Specialty Start Date End Date Jacinta Rivas MD [address] [place] [address] PCP - General Internal Medicine 02/03/19 Dena Lechuga RN Specialty Public Address Systems Mechanic Oncology 04/24/17 Jesus Carter MD, [address] [place] [address] Physician Radiation Oncology 04/24/17 Lisa Malhotra, FE [address] [facility] [place] [address] Research Nurse Hematology/Oncology 05/23/18 Taz Howard MD [address] [address] Home Care Physician Orthopedics 03/20/19 Taz Howard MD [address] [address] Referring Orthopedics 03/20/19 Lizeth Acosta, PT [address] [place] [address] Sound Editor Acute Care 03/21/19 Quality Control Associate Relationship Specialty Start Date End Date Jacinta Rivas MD [address] [place] [address] PCP - General Internal Medicine 02/03/19 Dena Lechuga RN Specialty Public Address Systems Mechanic Oncology 04/24/17 Jesus Carter MD, [address] [place] [address] Physician Radiation Oncology 04/24/17 Lisa Malhotra, FE [address] [place] [address] Research Nurse Hematology/Oncology 05/23/18 Taz Howard MD [address] [address] Home Care Physician Orthopedics 03/20/19 Taz Howard MD [address] [address] Referring Orthopedics 03/20/19 Lizeth Acosta, PT [address] [place] [address] Sound Editor Acute Care 03/21/19 Quality Control Associate Relationship Specialty Start Date End Date Jacinta Rivas MD [address] [place] [address] PCP - General Internal Medicine 02/03/19 Dena Lechuga RN Specialty Public Address Systems Mechanic Oncology 04/24/17 Jesus Carter MD, [address] [place] [address] Physician Radiation Oncology 04/24/17 Lisa Malhotra RN [address] [facility] [place] [address] Research Nurse Hematology/Oncology 05/23/18 Taz Howard MD [address] [address] Home Care Provider Orthopedics 03/20/19 Taz Howard MD [address] [address] Referring Orthopedics 03/20/19 Lizeth Acosta, PT [address] [place] [address] Sound Editor Acute Care 03/21/19 Quality Control Associate Relationship Specialty Start Date End Date Jacinta Rivas MD [address] [place] [address] PCP - General Internal Medicine 02/03/19 Dena Lechuga RN Specialty Public Address Systems Mechanic Oncology 04/24/17 Jesus Carter MD, [address] [place] [address] Physician Radiation Oncology 04/24/17 Lisa Malhotra RN [address] [place] [address] Research Nurse Hematology/Oncology 05/23/18 Taz Howard MD [address] [address] Home Care Provider Orthopedics 03/20/19 Taz Howard MD [address] [address] Referring Orthopedics 03/20/19 Lizeth Acosta, PT [address] [place] [address] Sound Editor Acute Care 03/21/19 Quality Control Associate Relationship Specialty Start Date End Date Jacinta Rivas MD [address] [place] [address] PCP - General Internal Medicine 02/03/19 Dena Lechuga, RN Specialty Public Address Systems Mechanic Oncology 04/24/17 Jesus Carter MD, MD [address] [place] [address] Physician Radiation Oncology 04/24/17 Taz Howard MD [address] [address] Home Care Provider Orthopedics 03/20/19 Taz Howard MD [address] [address] Referring Orthopedics 03/20/19 Lizeth Acosta, PT [address] [place] [address] Sound Editor Acute Care 03/21/19 Quality Control Associate Relationship Specialty Start Date End Date Jacinta Rivas MD [address] [place] [address] PCP - General Internal Medicine 02/03/19 Dena Lechuga RN Specialty Public Address Systems Mechanic Oncology 04/24/17 Jesus Carter MD, MD [address] [place] [address] Physician Radiation Oncology 04/24/17 Taz Howard MD [address] [address] Home Care Provider Orthopedics 03/20/19 Taz Howard MD [address] [address] Referring Orthopedics 03/20/19 Lizeth Acosta, PT [address] [place] [address] Sound Editor Acute Care 03/21/19 Quality Control Associate Relationship Specialty Start Date End Date Jacinta Rivas MD [address] [place] [address] PCP - General Internal Medicine 02/03/19 Dena Lechuga RN Specialty Public Address Systems Mechanic Oncology 04/24/17 Jesus Carter MD, [address] [place] [address] Physician Radiation Oncology 04/24/17 Taz Howard MD [address] [address] Home Care Provider Orthopedics 03/20/19 Taz Howard MD [address] [address] Referring Orthopedics 03/20/19 Lizeth Acosta, PT [address] [place] [address] Sound Editor Acute Care 03/21/19 Quality Control Associate Relationship Specialty Start Date End Date Jacinta Rivas MD [address] [place] [address] PCP - General Internal Medicine 02/03/19 Dena Lechuga RN Specialty Public Address Systems Mechanic Oncology 04/24/17 Jesus Carter MD, [address] [place] [address] Physician Radiation Oncology 04/24/17 Taz Howard MD [address] [address] Home Care Provider Orthopedics 03/20/19 Taz Howard MD [address] [address] Referring Orthopedics 03/20/19 Lizeth Acosta, PT [address] [place] [address] Sound Editor Acute Care 03/21/19 Quality Control Associate Relationship Specialty Start Date End Date Jacinta Rivas MD [address] [place] [address] PCP - General Internal Medicine 02/03/19 Dena Lechuga, RN Specialty Public Address Systems Mechanic Oncology 04/24/17 Jesus Carter MD, [address] [place] [address] Physician Radiation Oncology 04/24/17 Taz Howard MD [address] [address] Home Care Provider Orthopedics 03/20/19 Taz Howard MD [address] [address] Referring Orthopedics 03/20/19 Lizeth Acosta, PT [address] [place], [place] 7609331 Sound Editor Acute Care 03/21/19 Quality Control Associate Relationship Specialty Start Date End Date Jacinta Rivas MD [address] [place], [place] 611758 [phone] PCP - General Internal Medicine 02/03/19 Dena Lechuga, RN Specialty Public Address Systems Mechanic Oncology 04/24/17 Jesus Carter MD, [address] [place], [place] 205252 [phone] Physician Radiation Oncology 04/24/17 Taz Howard MD [address] [address] Home Care Provider Orthopedics 03/20/19 Taz Howard MD [address] [address] Referring Orthopedics 03/20/19 Lizeth Acosta, PT [address] [place], [place] [id number] Sound Editor Acute Care 03/21/19 Quality Control Associate Relationship Specialty Start Date End Date Jacinta Rivas MD [address] [place] [address] PCP - General Internal Medicine 02/03/19 Dena Lechuga, RN Specialty Public Address Systems Mechanic Oncology 04/24/17 Jesus Carter MD, [address] [place] [address] Physician Radiation Oncology 04/24/17 Taz Howard MD [address] [address] Home Care Provider Orthopedics 03/20/19 Taz Howard MD [address] [address] Referring Orthopedics 03/20/19 Lizeth Acosta, PT [address] [place], [place] 5258331 Sound Editor Acute Care 03/21/19 Quality Control Associate Relationship Specialty Start Date End Date Jacinta Rivas MD [address] [place], [place] 88[address] PCP - General Internal Medicine 02/03/19 Dena Lechuga, RN Specialty Public Address Systems Mechanic Oncology 04/24/17 Jesus Carter MD, [address] [place] [address] Physician Radiation Oncology 04/24/17 Taz Howard MD [address] [address] Home Care Provider Orthopedics 03/20/19 Taz Howard MD [address] [address] Referring Orthopedics 03/20/19 Lizeth Acosta, PT [address] [place] [address] Sound Editor Acute Care 03/21/19 Quality Control Associate Relationship Specialty Start Date End Date Jacinta Rivas MD [address] [place] [address] PCP - General Internal Medicine 02/03/19 Dena Lechuga, RN Specialty Public Address Systems Mechanic Oncology 04/24/17 Jesus Carter MD, [address] [place] [address] Physician Radiation Oncology 04/24/17 Taz Howard MD [address] [address] Home Care Provider Orthopedics 03/20/19 Taz Howard MD [address] [address] Referring Orthopedics 03/20/19 Lizeth Acosta, PT [address] [place] [address] Sound Editor Acute Care 03/21/19 Quality Control Associate Relationship Specialty Start Date End Date Jacinta Rivas MD [address] [place] [address] PCP - General Internal Medicine 02/03/19 Dena Lechuga, RN Specialty Public Address Systems Mechanic Oncology 04/24/17 Jesus Carter MD, MD [address] [facility] [place] [address] Physician Radiation Oncology 04/24/17 Taz Howard MD [address] [address] Home Care Provider Orthopedics 03/20/19 Taz Howard MD [address] [address] Referring Orthopedics 03/20/19 Lizeth Acosta, PT [address] [place] [address] Sound Editor Acute Care 03/21/19 Eliz Bingham MD [address] [facility] [address] [place] [address] General Surgery 07/04/22 Ney Hart [address] [facility] [address] [address] Gastroenterology 07/04/22 Quality Control Associate Relationship Specialty Start Date End Date Jacinta Rivas MD [address] [place], [place] [id number] PCP - General Internal Medicine 02/03/19 Dena Lechuga, RN Specialty Public Address Systems Mechanic Oncology 04/24/17 Jesus Carter MD, [address] [facility] [place] [address] Physician Radiation Oncology 04/24/17 Taz Howard MD [address] [address] Home Care Provider Orthopedics 03/20/19 Taz Howard MD [address] [address] Referring Orthopedics 03/20/19 Lizeth Acosta, PT [address] [place] [address] Sound Editor Acute Care 03/21/19 Eliz Bingham MD [address] [place] [address] [id number] General Surgery 07/04/22 Ney Hart [address] 7[address] Gastroenterology 07/04/22 Quality Control Associate Relationship Specialty Start Date End Date Jacinta Rivas MD [address] [place] [address] PCP - General Internal Medicine 02/03/19 Dena Lechuga, RN Specialty Public Address Systems Mechanic Oncology 04/24/17 Jesus Carter MD, [address] [facility] [place] [id number] Physician Radiation Oncology 04/24/17 Taz Howard MD [address] [address] Home Care Provider Orthopedics 03/20/19 Taz Howard MD [address] [address] Referring Orthopedics 03/20/19 Lizeth Acosta, PT [address] [place] [address] Sound Editor Acute Care 03/21/19 Eliz Bingham MD [address] [place] [address] General Surgery 07/04/22 Ney Hart [facility] [address] [place] [address] Gastroenterology 07/04/22 Quality Control Associate Relationship Specialty Start Date End Date Jacinta Rivas MD [address] [place] [address] PCP - General Internal Medicine 02/03/19 Dena Lechuga, RN Specialty Public Address Systems Mechanic Oncology 04/24/17 Jesus Carter MD, MD [address] [place] [address] Physician Radiation Oncology 04/24/17 Taz Howard MD [address] [address] Home Care Provider Orthopedics 03/20/19 Taz Howard MD [address] [address] Referring Orthopedics 03/20/19 Lizeth Acosta, PT [address] [place] [address] Sound Editor Acute Care 03/21/19 Elzi Bingham MD [address] [place] [address] General Surgery 07/04/22 Ney Hart [facility] [address] [place] [address] Gastroenterology 07/04/22 Quality Control Associate Relationship Specialty Start Date End Date Jacinta Rivas MD [address] [place] [address] PCP - General Internal Medicine 02/03/19 Dena Lechuga, RN Specialty Public Address Systems Mechanic Oncology 04/24/17 Jesus Carter MD, [address] [facility] [place] [address] Physician Radiation Oncology 04/24/17 Taz Howard MD [address] [address] Home Care Provider Orthopedics 03/20/19 Taz Howard MD [address] [address] Referring Orthopedics 03/20/19 Lizeth Acosta, PT [address] [place] [address] Sound Editor Acute Care 03/21/19 Eliz Bingham MD 9500 [facility] [address] [place] [address] General Surgery 07/04/22 Ney Hart [address] [address] Gastroenterology 07/04/22 Quality Control Associate Relationship Specialty Start Date End Date Jacinta Rivas MD [address] [place] [address] PCP - General Internal Medicine 02/03/19 Dena Lechuga, RN Specialty Public Address Systems Mechanic Oncology 04/24/17 Jesus Carter MD, [address] [facility] [place] [id number] Physician Radiation Oncology 04/24/17 Taz Howard MD [address] 6[address] Home Care Provider Orthopedics 03/20/19 Taz Howard MD [address] [address] Referring Orthopedics 03/20/19 Lizeth Acosta, PT [address] [place] [address] Sound Editor Acute Care 03/21/19 Eliz Bingham MD [address] [place] [address] General Surgery 07/04/22 Ney Hart [address] [address] Gastroenterology 07/04/22 Quality Control Associate Relationship Specialty Start Date End Date Jacinta Rivas MD [address] [place] [address] PCP - General Internal Medicine 02/03/19 Dena Lechuga, FE Specialty Public Address Systems Mechanic Oncology 04/24/17 Jesus Carter MD, [address] [facility] [place] [id number] Physician Radiation Oncology 04/24/17 Taz Howard MD [address] [address] Home Care Provider Orthopedics 03/20/19 Taz Howard MD [address] [address] Referring Orthopedics 03/20/19 Lizeth Acosta, PT [address] [place] [address] Sound Editor Acute Care 03/21/19 Eliz Bingham MD [address] [place] [address] General Surgery 07/04/22 Ney Hart [address] [facility] [address] [place] [address] Gastroenterology 07/04/22 Quality Control Associate Relationship Specialty Start Date End Date Jacinta Rivas MD [address] [place] [address] PCP - General Internal Medicine 02/03/19 Dena Lechuga RN Specialty Public Address Systems Mechanic Oncology 04/24/17 Jesus Catrer MD, MD [address] [place] [address] Physician Radiation Oncology 04/24/17 Taz Howard MD [address] [address] Home Care Provider Orthopedics 03/20/19 Taz Howard MD [address] [address] Referring Orthopedics 03/20/19 Lizeth Acosta, PT [address] [place] [address] Sound Editor Acute Care 03/21/19 Eliz Bingham MD [address] [facility] [address] [place] [address] [id number] General Surgery 07/04/22 Ney Hart [address] [facility] [address] [place] [address] Gastroenterology 07/04/22 Quality Control Associate Relationship Specialty Start Date End Date Jacinta Rivas MD [address] [place] [address] PCP - General Internal Medicine 02/03/19 Dena Lechuga RN Specialty Public Address Systems Mechanic Oncology 04/24/17 Jesus Carter MD, MD [address] [place] [address] Physician Radiation Oncology 04/24/17 Taz Howard MD [address] [address] Home Care Provider Orthopedics 03/20/19 Taz Howard MD [address] [address] Referring Orthopedics 03/20/19 Lizeth Acosta, PT [address] [place] [address] Sound Editor Acute Care 03/21/19 Eliz Bingham MD [address] [place] [address] [id number] General Surgery 07/04/22 Ney Hrat [address] [address] Gastroenterology 07/04/22 Quality Control Associate Relationship Specialty Start Date End Date Jacinta Rivas MD [address] [place] [address] PCP - General Internal Medicine 02/03/19 Dena Lechuga, RN Specialty Public Address Systems Mechanic Oncology 04/24/17 Jesus Carter MD, [address] [place] [address] Physician Radiation Oncology 04/24/17 Taz Howard MD [address] [address] Home Care Provider Orthopedics 03/20/19 Taz Howard MD [address] [address] Referring Orthopedics 03/20/19 Lizeth Acosta, PT [address] [place] [address] Sound Editor Acute Care 03/21/19 Eliz Bingham MD [address] [place] [address] General Surgery 07/04/22 Ney Hart E [facility] [address] [place] [address] Gastroenterology 07/04/22 Quality Control Associate Relationship Specialty Start Date End Date Jacinta Rivas MD [address] [place] [address] PCP - General Internal Medicine 02/03/19 Dena Lechuga RN Specialty Public Address Systems Mechanic Oncology 04/24/17 Jesus Carter MD, MD [address] [place] [address] Physician Radiation Oncology 04/24/17 Taz Howard MD [address] [address] Home Care Provider Orthopedics 03/20/19 Taz Howard MD [address] [address] Referring Orthopedics 03/20/19 Lizeth Acosta, PT [address] [place] [address] Sound Editor Acute Care 03/21/19 Eliz Bingham MD [address] [place] [address] General Surgery 07/04/22 Ney Hart E [facility] [address] [place] [address] Gastroenterology 07/04/22 Quality Control Associate Relationship Specialty Start Date End Date Jacinta Rivas MD [address] [place] [address] PCP - General Internal Medicine 02/03/19 Dena Lechuga RN Specialty Public Address Systems Mechanic Oncology 04/24/17 Jesus Carter MD, [address] [place] [address] Physician Radiation Oncology 04/24/17 Taz Howard MD [address] [address] Home Care Provider Orthopedics 03/20/19 Taz Howard MD [address] [place] [address] Referring Orthopedics 03/20/19 Lizeth Acosta, PT [address] [place] [address] Sound Editor Acute Care 03/21/19 Eilz Bingham MD [address] [place] [address] General Surgery 07/04/22 Ney Hart [address] [address] Gastroenterology 07/04/22 Quality Control Associate Relationship Specialty Start Date End Date Jacinta Rivas MD [address] [place] [address] PCP - General Internal Medicine 02/03/19 Dena Lechuga, RN Specialty Public Address Systems Mechanic Oncology 04/24/17 Jesus Carter MD, [address] [place] [address] Physician Radiation Oncology 04/24/17 Taz Howard MD [address] [id number] Home Care Provider Orthopedics 03/20/19 Taz Howard MD [address] [address] Referring Orthopedics 03/20/19 Lizeth Acosta, PT [address] [place] [address] Sound Editor Acute Care 03/21/19 Eliz Bingham MD [address] [place] [address] General Surgery 07/04/22 Ney Hart 128 [facility] [address] [place] [address] Gastroenterology 07/04/22 Quality Control Associate Relationship Specialty Start Date End Date Jacinta Rivas MD [address] [place] [address] PCP - General Internal Medicine 02/03/19 Dena Lechuga, RN Specialty Public Address Systems Mechanic Oncology 04/24/17 Jesus Carter MD, [address] [place] [address] Physician Radiation Oncology 04/24/17 Taz Howard MD [address] [address] Home Care Provider Orthopedics 03/20/19 Taz Howard MD [address] [address] Referring Orthopedics 03/20/19 Lizeth Acosta, PT [address] [place] [address] Sound Editor Acute Care 03/21/19 Eliz Bingham MD [address] [place] [address] General Surgery 07/04/22 Ney Hart 128 E [facility] [address] [place] [address] Gastroenterology 07/04/22 Quality Control Associate Relationship Specialty Start Date End Date Jacinta Rivas MD [address] [place], [place] 107071 PCP - General Internal Medicine 02/03/19 Dena Lechuga, RN Specialty Public Address Systems Mechanic Oncology 04/24/17 Jesus Carter MD, MD [address] [place] [address] Physician Radiation Oncology 04/24/17 Taz Howard MD [address] [address] Home Care Provider Orthopedics 03/20/19 Taz Howard MD 970 E [facility] [address] [place] [address] Referring Orthopedics 03/20/19 Lizeth Acosta, PT [address] [place], [place] 8656731 Sound Editor Acute Care 03/21/19 Eliz Bingham MD 9500 [facility] [address] [place] [address] General Surgery 07/04/22 Ney Hart 128 E [facility] [address] [place] [address] Gastroenterology 07/04/22 Quality Control Associate Relationship Specialty Start Date End Date Jacinta Rivas MD [address] [place], [place] 243681 PCP - General Internal Medicine 02/03/19 Dena Lechuga, RN Specialty Public Address Systems Mechanic Oncology 04/24/17 Jesus Carter MD, MD [address] [place] [address] Physician Radiation Oncology 04/24/17 Taz Howard MD [address] [address] Home Care Provider Orthopedics 03/20/19 Taz Howard MD [address] [address] Referring Orthopedics 03/20/19 Lizeth Acosta, PT [address] [place] [address] Sound Editor Acute Care 03/21/19 Eliz Bingham MD 9500 [facility] [address] [place] [address] [id number] General Surgery 07/04/22 Ney Hart F [address] [address] Gastroenterology 07/04/22 Quality Control Associate Relationship Specialty Start Date End Date Jacinta Rivas MD [address] [place] [address] PCP - General Internal Medicine 02/03/19 Dena Lechuga, RN Specialty Public Address Systems Mechanic Oncology 04/24/17 Jesus Carter MD, [address] [place] [address] Physician Radiation Oncology 04/24/17 Taz Howard MD [address] [address] Home Care Provider Orthopedics 03/20/19 Taz Howard MD [address] [address] Referring Orthopedics 03/20/19 Lizeth Acosta, PT [address] [place] [address] Sound Editor Acute Care 03/21/19 Eliz Bingham MD [address] [place] [address] General Surgery 07/04/22 Ney Hart E [facility] [address] [place], [place] 243011 Gastroenterology 07/04/22 Quality Control Associate Relationship Specialty Start Date End Date Jacinta Rivas MD [address] [place], [place] 600831 PCP - General Internal Medicine 02/03/19 Dena Lechuga RN Specialty Public Address Systems Mechanic Oncology 04/24/17 Jesus Carter MD, MD [address] [place] [address] Physician Radiation Oncology 04/24/17 Taz Howard MD [address] [address] Home Care Provider Orthopedics 03/20/19 Taz Howard MD [address] [address] Referring Orthopedics 03/20/19 Lizeth Acosta, PT [address] [place] [address] Sound Editor Acute Care 03/21/19 Eliz Bingham MD [address] [place] [address] General Surgery 07/04/22 Ney Hart E [facility] [address] [place] [address] Gastroenterology 07/04/22 Quality Control Associate Relationship Specialty Start Date End Date Jacinta Rivas MD [address] [place], [place] 219521 PCP - General Internal Medicine 02/03/19 Dena Lechuga RN Specialty Public Address Systems Mechanic Oncology 04/24/17 Jesus Carter MD, MD [address] [place], [place] 191021 Physician Radiation Oncology 04/24/17 Taz Howard MD [address] [address] Home Care Provider Orthopedics 03/20/19 Taz Howard MD [address] [address] Referring Orthopedics 03/20/19 Lizeth Acosta, PT [address] [place] [address] Sound Editor Acute Care 03/21/19 Eliz Bingham MD 9500 [facility] [address] [place] [address] [id number] General Surgery 07/04/22 Ney Hart [address] [address] Gastroenterology 07/04/22 Quality Control Associate Relationship Specialty Start Date End Date Jacinta Rivas MD [address] [place], [place] 133251 PCP - General Internal Medicine 02/03/19 Dena Lechuga, RN Specialty Public Address Systems Mechanic Oncology 04/24/17 Jesus Carter MD, MD [address] [place], [place] 539481 Physician Radiation Oncology 04/24/17 Taz Howard MD [address] [address] Home Care Provider Orthopedics 03/20/19 Taz Howard MD [address] [address] Referring Orthopedics 03/20/19 Lizeth Acosta, PT [address] [place] [address] Sound Editor Acute Care 03/21/19 Eliz Bingham MD [address] [place] [address] General Surgery 07/04/22 Ney Hart [address] [address] Gastroenterology 07/04/22 Quality Control Associate Relationship Specialty Start Date End Date Jacinta Rivas MD [address] [place] [address] PCP - General Internal Medicine 02/03/19 Dena Lechuga, RN Specialty Public Address Systems Mechanic Oncology 04/24/17 Jesus Carter MD, [address] [place] [address] Physician Radiation Oncology 04/24/17 Taz Howard MD [address] [address] Home Care Provider Orthopedics 03/20/19 Taz Howard MD [address] [address] Referring Orthopedics 03/20/19 Lizeth Acosta, PT [address] [place] [address] Sound Editor Acute Care 03/21/19 Eliz Bingham MD [address] [place] [address] General Surgery 07/04/22 Ney Hart 128 E [facility] [address] [place] [address] Gastroenterology 07/04/22 Quality Control Associate Relationship Specialty Start Date End Date Jacinta Rivas MD [address] [place] [address] PCP - General Internal Medicine 02/03/19 Dena Lechuga RN Specialty Public Address Systems Mechanic Oncology 04/24/17 Jesus Carter MD, MD [address] [place] [address] Physician Radiation Oncology 04/24/17 Taz Howard MD [address] [address] Home Care Provider Orthopedics 03/20/19 Taz Howard MD [address] [address] Referring Orthopedics 03/20/19 Lizeth Acosta, PT [address] [place] [address] Sound Editor Acute Care 03/21/19 Eliz Bingham MD [address] [place] [id number] General Surgery 07/04/22 Ney Hart [address] [facility] [address] [address] Gastroenterology 07/04/22 Quality Control Associate Relationship Specialty Start Date End Date Jacinta Rivas MD [address] [place], [place] 105601 PCP - General Internal Medicine 02/03/19 Dena Lechuga, RN Specialty Public Address Systems Mechanic Oncology 04/24/17 Jesus Carter MD, MD [address] [place] [address] Physician Radiation Oncology 04/24/17 Taz Howard MD [address] [address] Home Care Provider Orthopedics 03/20/19 Taz Howard MD [address] [address] Referring Orthopedics 03/20/19 Lizeth Acosta, PT [address] [place], [place] 0397431 Sound Editor Acute Care 03/21/19 Eliz Bingham MD [address] [place] [address] General Surgery 07/04/22 Ney Hart [address] [facility] [address] [address] Gastroenterology 07/04/22 Quality Control Associate Relationship Specialty Start Date End Date Jacinta Rivas MD [address] [place] [address] PCP - General Internal Medicine 02/03/19 Dena Lechuga RN Specialty Public Address Systems Mechanic Oncology 04/24/17 Jesus Carter MD, [address] [place] [address] Physician Radiation Oncology 04/24/17 Taz Howard MD 970 [address] [facility] [address] [place] [address] Home Care Provider Orthopedics 03/20/19 Taz Howard MD 970 [address] [facility] [address] [place] [address] Referring Orthopedics 03/20/19 Eliz Bingham MD [address] [place] [address] General Surgery 07/04/22 Ney Hart [address] [address] Gastroenterology 07/04/22 Quality Control Associate Relationship Specialty Start Date End Date Jacinta Rivas MD [address] [place] [address] PCP - General Internal Medicine 02/03/19 Dena Lechuga, FE Specialty Public Address Systems Mechanic Oncology 04/24/17 Jesus Carter MD, [address] [place] [address] Physician Radiation Oncology 04/24/17 Taz Howard MD [address] [address] Home Care Provider Orthopedics 03/20/19 Taz Howard MD [address] [address] Referring Orthopedics 03/20/19 Eliz Bingham MD [address] [place] [address] General Surgery 07/04/22 Ney Hart [address] [address] Gastroenterology 07/04/22 Quality Control Associate Relationship Specialty Start Date End Date Jacinta Rivas MD [address] [place] [address] PCP - General Internal Medicine 02/03/19 Dena Lechuga, RN Specialty Public Address Systems Mechanic Oncology 04/24/17 Jesus Carter MD, [address] [place] [address] Physician Radiation Oncology 04/24/17 Taz Howard MD [address] [address] Home Care Provider Orthopedics 03/20/19 Taz Howard MD [address] [address] Referring Orthopedics 03/20/19 Eliz Bingham MD [address] [place] [address] General Surgery 07/04/22 Ney Hart 128 E [facility] [address] [place] [address] Gastroenterology 07/04/22 Quality Control Associate Relationship Specialty Start Date End Date Jacinta Rivas MD [address] [place], [place] 615941 PCP - General Internal Medicine 02/03/19 Dena Lechuga RN Specialty Public Address Systems Mechanic Oncology 04/24/17 Jesus Carter MD, [address] [place] [address] Physician Radiation Oncology 04/24/17 Taz Howard MD [address] [address] Home Care Provider Orthopedics 03/20/19 Taz Howard MD [address] [address] Referring Orthopedics 03/20/19 Eliz Bingham MD [address] [address] General Surgery 07/04/22 Ney Hart 128 E [facility] [address] [place] [address] Gastroenterology 07/04/22 Quality Control Associate Relationship Specialty Start Date End Date Jacinta Rivas MD [address] [place] [address] PCP - General Internal Medicine 02/03/19 Doup, Dena, RN Specialty Public Address Systems Mechanic Oncology 04/24/17 Jesus Carter MD, MD [address] [place] [address] Physician Radiation Oncology 04/24/17 Taz Howard MD [address] [address] Home Care Provider Orthopedics 03/20/19 Taz Howard MD [address] [address] Referring Orthopedics 03/20/19 Eliz Bingham MD 9500 [facility] [address] [place] [address] General Surgery 07/04/22 Ney Hart [address] [place] [address] [address] Gastroenterology 07/04/22 Quality Control Associate Relationship Specialty Start Date End Date Jacinta Rivas MD [address] [place] [address] PCP - General Internal Medicine 02/03/19 Dena Lechuga RN Specialty Public Address Systems Mechanic Oncology 04/24/17 Jesus Carter MD, MD [address] [place] [address] Physician Radiation Oncology 04/24/17 Taz Howard MD [address] [address] Home Care Provider Orthopedics 03/20/19 Taz Howard MD [address] [address] Referring Orthopedics 03/20/19 Eliz Bingham MD [address] [place] [address] General Surgery 07/04/22 Ney Hart 128 E S[facility] [address] [place] [address] Gastroenterology 07/04/22 Quality Control Associate Relationship Specialty Start Date End Date Jacinta Rivas MD [address] [place] [address] PCP - General Internal Medicine 02/03/19 Dena Lechuga RN Specialty Public Address Systems Mechanic Oncology 04/24/17 Jesus Carter MD, [address] [place] [address] Physician Radiation Oncology 04/24/17 Taz Howard MD [address] [address] Home Care Provider Orthopedics 03/20/19 Taz Howard MD [address] [address] Referring Orthopedics 03/20/19 Eliz Bingham MD [address] [place] [address] General Surgery 07/04/22 Ney Hart 128 E [facility] [facility] [address] [place] [address] Gastroenterology 07/04/22 Quality Control Associate Relationship Specialty Start Date End Date Jacinta Rivas MD [address] [place], [place] 606911 PCP - General Internal Medicine 02/03/19 Dena Lechuga RN Specialty Public Address Systems Mechanic Oncology 04/24/17 Jesus Carter MD, MD [address] [place] [address] Physician Radiation Oncology 04/24/17 Taz Howard MD [address] [address] Home Care Provider Orthopedics 03/20/19 Taz Howard MD [address] [address] Referring Orthopedics 03/20/19 Eliz Bingham MD 9500 [facility] [address] [place] [address] General Surgery 07/04/22 Ney Hart [address] 345911 Gastroenterology 07/04/22 Quality Control Associate Relationship Specialty Start Date End Date Jacinta Rivas MD [address] [place], [place] 245781 PCP - General Internal Medicine 02/03/19 Dena Lechuga RN Specialty Public Address Systems Mechanic Oncology 04/24/17 Jesus Carter MD, 7[address] E [facility] [place] [place] 135161 Physician Radiation Oncology 04/24/17 Taz Howard MD [address] [address] Home Care Provider Orthopedics 03/20/19 Taz Howard MD [address] [address] Referring Orthopedics 03/20/19 Eliz Bingham MD [address] [address] General Surgery 07/04/22 Ney Hart 128 E [facility] [address] [address] Gastroenterology 07/04/22 Quality Control Associate Relationship Specialty Start Date End Date Jacinta Rivas MD [address] [place] [address] PCP - General Internal Medicine 02/03/19 Dena Lechuga, RN Specialty Public Address Systems Mechanic Oncology 04/24/17 Jesus Carter MD, [address] [place] [address] Physician Radiation Oncology 04/24/17 Taz Howard MD [address] [address] Home Care Provider Orthopedics 03/20/19 Taz Howard MD [address] [address] Referring Orthopedics 03/20/19 Eliz Bingham MD [address] [place] [address] General Surgery 07/04/22 Ney Hart [address] [facility] [address] [place] [address] Gastroenterology 07/04/22 Quality Control Associate Relationship Specialty Start Date End Date Jacinta Rivas MD [address] [place] [address] PCP - General Internal Medicine 02/03/19 Dena Lechuga RN Specialty Public Address Systems Mechanic Oncology 04/24/17 Jesus Carter MD, [address] [place] [address] Physician Radiation Oncology 04/24/17 Taz Howard MD [address] [address] Home Care Provider Orthopedics 03/20/19 Taz Howard MD [address] [address] Referring Orthopedics 03/20/19 Eliz Bingham MD [address] [place] [address] General Surgery 07/04/22 Ney Hart 128 E [facility] [facility] [address] [place] [address] Gastroenterology 07/04/22 Quality Control Associate Relationship Specialty Start Date End Date Jacinta Rivas MD [address] [place] [address] PCP - General Internal Medicine 02/03/19 Dena Lechuga, RN Specialty Public Address Systems Mechanic Oncology 04/24/17 Jesus Carter MD, MD [address] [place] [address] Physician Radiation Oncology 04/24/17 Taz Howard MD [address] [address] Home Care Provider Orthopedics 03/20/19 Taz Howard MD [address] [address] Referring Orthopedics 03/20/19 Eliz Bingham MD [address] [place] [address] General Surgery 07/04/22 Ney Hart MD [address] [place] [address] [address] Gastroenterology 07/04/22 Mino Rosales LISW [address] [place] [address] Senior Php Developer Hematology/Oncology 01/08/23 Quality Control Associate Relationship Specialty Start Date End Date Jacinta Rivas MD [address] [place] [address] PCP - General Internal Medicine 02/03/19 Dena Lechuga, RN Specialty Public Address Systems Mechanic Oncology 04/24/17 Jesus Carter MD, [address] [place] [address] Physician Radiation Oncology 04/24/17 Taz Howard MD [address] [address] Home Care Provider Orthopedics 03/20/19 Taz Howard MD [address] [address] Referring Orthopedics 03/20/19 Eliz Bingham MD [address] [place] [address] General Surgery 07/04/22 Ney Hart MD [address] [address] Gastroenterology 07/04/22 Mino Rosales LISW [address] [place] [address] Senior Php Developer Hematology/Oncology 01/08/23 Quality Control Associate Relationship Specialty Start Date End Date Jacinta Rivas MD [address] [place] [address] PCP - General Internal Medicine 02/03/19 Dena Lechuga, RN Specialty Public Address Systems Mechanic Oncology 04/24/17 Jesus Carter MD, [address] [place] [address] Physician Radiation Oncology 04/24/17 Taz Howard MD [address] [address] Home Care Provider Orthopedics 03/20/19 Taz Howard MD [address] [address] Referring Orthopedics 03/20/19 Eliz Bingham MD [address] [place] [address] General Surgery 07/04/22 Ney Hart MD 128 E [facility] [address] [place] [address] Gastroenterology 07/04/22 Mino Rosales LISW [address] [place] [address] Senior Php Developer Hematology/Oncology 01/08/23 Quality Control Associate Relationship Specialty Start Date End Date Jacinta Rivas MD [address] [place] [address] PCP - General Internal Medicine 02/03/19 Dena Lechuga RN Specialty Public Address Systems Mechanic Oncology 04/24/17 Jesus Carter MD, [address] [place] [address] Physician Radiation Oncology 04/24/17 Taz Howard MD [address] [address] Home Care Provider Orthopedics 03/20/19 Taz Howard MD [address] [address] Referring Orthopedics 03/20/19 Eliz Bingham MD [address] [place] [address] General Surgery 07/04/22 Ney Hart MD [address] E [facility] [address] [place] [address] Gastroenterology 07/04/22 Mino Rosales LISW [address] [place] [address] Senior Php Developer Hematology/Oncology 01/08/23 Quality Control Associate Relationship Specialty Start Date End Date Jacinta Rivas MD [address] [place] [address] PCP - General Internal Medicine 02/03/19 Dena Lechuga RN Specialty Public Address Systems Mechanic Oncology 04/24/17 Jesus Carter MD, [address] [place] [address] Physician Radiation Oncology 04/24/17 Taz Howard MD [address] [address] Home Care Provider Orthopedics 03/20/19 Taz Howard MD [address] [address] Referring Orthopedics 03/20/19 Eliz Bingham MD [address] [place] [address] General Surgery 07/04/22 Ney Hart MD [address] E [facility] [address] [place] [address] Gastroenterology 07/04/22 Mino Rosales LISW [address] [place] [address] Senior Php Developer Hematology/Oncology 01/08/23 Quality Control Associate Relationship Specialty Start Date End Date Jacinta Rivas MD [address] [place] [address] PCP - General Internal Medicine 02/03/19 Dena Lechuga RN Specialty Public Address Systems Mechanic Oncology 04/24/17 Jesus Carter MD, MD [address] [place] [address] Physician Radiation Oncology 04/24/17 Taz Howard MD [address] [address] Home Care Provider Orthopedics 03/20/19 Taz Howard MD [address] [address] Referring Orthopedics 03/20/19 Eliz Bingham MD [address] [place] [address] General Surgery 07/04/22 Ney Hart MD [address] [place] [address] [address] Gastroenterology 07/04/22 Mino Rosales LISW [address] [place] [address] Senior Php Developer Hematology/Oncology 01/08/23 Quality Control Associate Relationship Specialty Start Date End Date Jacinta Rivas MD [address] [place] [address] PCP - General Internal Medicine 02/03/19 Dena Lechuga RN Specialty Public Address Systems Mechanic Oncology 04/24/17 Jesus Carter MD, [address] [place] [place] [address] Physician Radiation Oncology 04/24/17 Taz Howard MD [address] [address] Home Care Provider Orthopedics 03/20/19 Taz Howard MD [address] [address] Referring Orthopedics 03/20/19 Eliz Bingham MD [address] [address] [place] [address] General Surgery 07/04/22 Ney Hart MD [address] [place] [address] [address] Gastroenterology 07/04/22 Mino Rosales LISW [address] [place] [address] Senior Php Developer Hematology/Oncology 01/08/23 Quality Control Associate Relationship Specialty Start Date End Date Jacinta Rivas MD [address] [place] [address] PCP - General Internal Medicine 02/03/19 Dena Lechuga, RN Specialty Public Address Systems Mechanic Oncology 04/24/17 Jesus Carter MD, [address] [place] [address] Physician Radiation Oncology 04/24/17 Taz Howard MD [address] [address] Home Care Provider Orthopedics 03/20/19 Taz Howard MD [address] [address] Referring Orthopedics 03/20/19 Eliz Bingham MD [address] [place], [place] [id number] General Surgery 07/04/22 Ney Hart MD [address] [facility] 206 [place] [address] Gastroenterology 07/04/22 Mino Rosales LISW [address] [place] [address] Senior Php Developer Hematology/Oncology 01/08/23 Quality Control Associate Relationship Specialty Start Date End Date Jacinta Rivas MD [address]40 [place] [address] PCP - General Internal Medicine 02/03/19 Dena Lechuga RN Specialty Public Address Systems Mechanic Oncology 04/24/17 Jesus Carter MD, [address] [place] [address] Physician Radiation Oncology 04/24/17 Taz Howard MD [address] [address] Home Care Provider Orthopedics 03/20/19 Taz Howard MD [address] [address] Referring Orthopedics 03/20/19 Eliz Bingham MD [address] [place] [address] General Surgery 07/04/22 Ney Hart MD [address] [facility] [address] [place] [address] Gastroenterology 07/04/22 Mino Rosales LISW [address] [place] [address] Senior Php Developer Hematology/Oncology 01/08/23 Quality Control Associate Relationship Specialty Start Date End Date Jacinta Rivas MD [address] [place] [address] PCP - General Internal Medicine 02/03/19 Dena Lechuga RN Specialty Public Address Systems Mechanic Oncology 04/24/17 Jesus Carter MD, MD [address] [place] [place], [place] [address]891 Physician Radiation Oncology 04/24/17 Taz Howard MD [address] [address] Home Care Provider Orthopedics 03/20/19 Taz Howard MD [address] [address] Referring Orthopedics 03/20/19 Eliz Bingham MD [address] [place] [address] General Surgery 07/04/22 Ney Hart MD [address] [facility] [address] [address] Gastroenterology 07/04/22 Mino Rosales LISW [address] [place] [address] Senior Php Developer Hematology/Oncology 01/08/23 Quality Control Associate Relationship Specialty Start Date End Date Jacinta Rivas MD [address] [place] [address] PCP - General Internal Medicine 02/03/19 Dena Lechuga, RN Specialty Public Address Systems Mechanic Oncology 04/24/17 Jesus Carter MD, MD [address] [place] [address] Physician Radiation Oncology 04/24/17 Taz Howard MD [address] [address] Home Care Provider Orthopedics 03/20/19 Taz Howard MD [address] [address] Referring Orthopedics 03/20/19 Eliz Bingham MD [address] [place] [address] General Surgery 07/04/22 Ney Hart MD [address] [place] [address] [address] Gastroenterology 07/04/22 Mino Rosales LISW [address] [place] [address] Senior Php Developer Hematology/Oncology 01/08/23 Quality Control Associate Relationship Specialty Start Date End Date Jacinta Rivas MD [address] [place] [address] PCP - General Internal Medicine 02/03/19 Dena Lechuga, RN Specialty Public Address Systems Mechanic Oncology 04/24/17 Jesus Carter MD, MD [address] [place] [address] Physician Radiation Oncology 04/24/17 Taz Howard MD [address] [address] Home Care Provider Orthopedics 03/20/19 Taz Howard MD [address] [address] Referring Orthopedics 03/20/19 Eliz Bingham MD [address] [place] [address] General Surgery 07/04/22 Ney Hart MD [address] [facility] [address] [address] Gastroenterology 07/04/22 Mino Rosales LISW [address] [place] [address] Senior Php Developer Hematology/Oncology 01/08/23 Quality Control Associate Relationship Specialty Start Date End Date Jacinta Rivas MD [address] [place] [address] PCP - General Internal Medicine 02/03/19 Dena Lechuga, RN Specialty Public Address Systems Mechanic Oncology 04/24/17 Jesus Carter MD, [address] [place] [address] Physician Radiation Oncology 04/24/17 Taz Howard MD [address] [address] Home Care Provider Orthopedics 03/20/19 Taz Howard MD [address] [address] Referring Orthopedics 03/20/19 Eliz Bingham MD [address] [place], [place] [id number] General Surgery 07/04/22 Ney Hart MD [address] [facility] 206 [place] [address] Gastroenterology 07/04/22 Mino Rosales LISW [address] [place] [address] Senior Php Developer Hematology/Oncology 01/08/23 Quality Control Associate Relationship Specialty Start Date End Date Jacinta Rivas MD [address] [place] [address] PCP - General Internal Medicine 02/03/19 Dena Lechuga RN Specialty Public Address Systems Mechanic Oncology 04/24/17 Jesus Carter MD [address] [place] [address] Physician Radiation Oncology 04/24/17 Taz Howard MD [address] [address] Home Care Provider Orthopedics 03/20/19 Taz Howard MD [address] [address] Referring Orthopedics 03/20/19 Eliz Bingham MD [address] [place] [address] General Surgery 07/04/22 Ney Hart MD [address] [facility] 206 [place], [place] [address] Gastroenterology 07/04/22 Mino Rosales LISW [address] [place] [address] Senior Php Developer Hematology/Oncology 01/08/23 Quality Control Associate Relationship Specialty Start Date End Date Jacinta Rivas MD [address] [place] [address] PCP - General Internal Medicine 02/03/19 Dena Lechuga, RN Specialty Public Address Systems Mechanic Oncology 04/24/17 Jesus Carter MD [address] [place] [address] Physician Radiation Oncology 04/24/17 Taz Howard MD [address] [address] Home Care Provider Orthopedics 03/20/19 Taz Howard MD [address] [address] Referring Orthopedics 03/20/19 Eliz Bingham MD [address] [place] [address] General Surgery 07/04/22 Ney Hart MD [address] [place] [address] Gastroenterology 07/04/22 Mino Rosales LISW [address] [place] [address] Senior Php Developer Hematology/Oncology 01/08/23 Quality Control Associate Relationship Specialty Start Date End Date Jacinta Rivas MD [address] [place] [address] PCP - General Internal Medicine 02/03/19 Dena Lechuga RN Specialty Public Address Systems Mechanic Oncology 04/24/17 Jesus Carter MD [address] [place] [address] Physician Radiation Oncology 04/24/17 Taz Howard MD [address] [address] Home Care Provider Orthopedics 03/20/19 Taz Howard MD [address] [address] Referring Orthopedics 03/20/19 Eliz Bingham MD [address] [facility] [address] [address] [place] [address] General Surgery 07/04/22 Ney Hart MD [address] [address] Gastroenterology 07/04/22 Mino Rosales LISW [address] [place] [address] Senior Php Developer Hematology/Oncology 01/08/23 Quality Control Associate Relationship Specialty Start Date End Date Jacinta Rivas MD [address] [place] [address] PCP - General Internal Medicine 02/03/19 Dena Lechuga RN Specialty Public Address Systems Mechanic Oncology 04/24/17 Jesus Carter MD [address] [place] [address] Physician Radiation Oncology 04/24/17 Taz Howard MD [address] [address] Home Care Provider Orthopedics 03/20/19 Taz Howard MD [address] [address] Referring Orthopedics 03/20/19 Eliz Bingham MD [address] [place] [address] General Surgery 07/04/22 Ney Hart MD [address] [address] Gastroenterology 07/04/22 Mino Rosales LISW [address] [place] [address] Senior Php Developer Hematology/Oncology 01/08/23 Quality Control Associate Relationship Specialty Start Date End Date Jacinta Rivas MD [address] [place] [address] PCP - General Internal Medicine 02/03/19 Dena Lechuga, RN Specialty Public Address Systems Mechanic Oncology 04/24/17 Jesus Carter MD [address] [place] [address] Physician Radiation Oncology 04/24/17 Taz Howard MD [address] [address] Home Care Provider Orthopedics 03/20/19 Taz Howard MD [address] [address] Referring Orthopedics 03/20/19 Eliz Bingham MD [address] [place] [address] General Surgery 07/04/22 Ney Hart MD [address] [facility] 206 [place] [address] Gastroenterology 07/04/22 Mino Rosales LISW [address] [place] [address] Senior Php Developer Hematology/Oncology 01/08/23 Quality Control Associate Relationship Specialty Start Date End Date Jacinta Rivas MD [address] [place] [address] PCP - General Internal Medicine 02/03/19 Dnea Lechuga RN Specialty Public Address Systems Mechanic Oncology 04/24/17 Jesus Carter MD [address] [place] [address] Physician Radiation Oncology 04/24/17 Taz Howard MD [address] [address] Home Care Provider Orthopedics 03/20/19 Taz Howard MD [address] [address] Referring Orthopedics 03/20/19 Eliz Bingham MD [address] [address] General Surgery 07/04/22 Ney Hart MD [address] [facility] 206 [place] [address] Gastroenterology 07/04/22 Mino Rosales LISW [address] [place] [address] Senior Php Developer Hematology/Oncology 01/08/23 Quality Control Associate Relationship Specialty Start Date End Date Jacinta Rivas MD [address] [place] [address] PCP - General Internal Medicine 02/03/19 Dena Lechuga, FE Specialty Public Address Systems Mechanic Oncology 04/24/17 Jesus Carter MD [address] [place] [address] Physician Radiation Oncology 04/24/17 Taz Howard MD [address] [address] Home Care Provider Orthopedics 03/20/19 Taz Howard MD [address] [address] Referring Orthopedics 03/20/19 Eliz Bingham MD [address] [address] General Surgery 07/04/22 Ney Hart MD [address] [place] [address] Gastroenterology 07/04/22 Mino Rosales LISW [address] [place] [address] Senior Php Developer Hematology/Oncology 01/08/23 Team Status: Active Member Role Status Dates Dr. Jacinta Rivas MD Family Provider Active Dr. Jacinta Rivas MD Primary Care Provider Active Team Status: Inactive Member Role Status Dates Dr. Jacinta Rivas MD Primary Care Provider Active Dr. Jaquan Nelson DO Emergency Provider Active Quality Control Associate Relationship Specialty Start Date End Date Jacinta Rivas MD [address] [place] [address] PCP - General Internal Medicine 02/03/19 Dena Lechuga RN Specialty Public Address Systems Mechanic Oncology 04/24/17 Jesus Carter MD [address] [place] [address] Physician Radiation Oncology 04/24/17 Taz Howard MD [address] [address] Home Care Provider Orthopedics 03/20/19 Taz Howard MD [address] [address] Referring Orthopedics 03/20/19 Eliz Bingham MD [address] [address] General Surgery 07/04/22 Ney Hart MD [address] [facility] 206 [place] [address] Gastroenterology 07/04/22 Mino Rosales LISW [address] [place] [address] Senior Php Developer Hematology/Oncology 01/08/23 Quality Control Associate Relationship Specialty Start Date End Date Jacinta Rivas MD [address] [place] [address] PCP - General Internal Medicine 02/03/19 Dena Lechuga RN Specialty Public Address Systems Mechanic Oncology 04/24/17 Jesus Carter MD [address] [place] [address] Physician Radiation Oncology 04/24/17 Taz Howard MD [address] [address] Home Care Provider Orthopedics 03/20/19 Taz Howard MD [address] [address] Referring Orthopedics 03/20/19 Eliz Bingham MD [address] [place] [address] General Surgery 07/04/22 Ney Hart MD [address] [address] Gastroenterology 07/04/22 Mino Rosales LISW [address] [place] [address] Senior Php Developer Hematology/Oncology 01/08/23 Quality Control Associate Relationship Specialty Start Date End Date Jacinta Rivas MD [address] [place] [address] PCP - General Internal Medicine 02/03/19 Dena Lechuga, FE Specialty Public Address Systems Mechanic Oncology 04/24/17 Jesus Carter MD [address] [facility] [place] [address] Physician Radiation Oncology 04/24/17 Taz Howard MD [address] [address] Home Care Provider Orthopedics 03/20/19 Taz Howard MD [address] [address] Referring Orthopedics 03/20/19 Eliz Bingham MD [address] [address] General Surgery 07/04/22 Ney Hart MD [address] [facility] 206 [place] [address] Gastroenterology 07/04/22 Mino Rosales LISW 721 [place] [address] Senior Php Developer Hematology/Oncology 01/08/23 Quality Control Associate Relationship Specialty Start Date End Date Jacinta Rivas MD [address] [place] [address] PCP - General Internal Medicine 02/03/19 Dena Lechuga, FE Specialty Public Address Systems Mechanic Oncology 04/24/17 Jesus Carter MD [address] [place] [address] Physician Radiation Oncology 04/24/17 Taz Howard MD [address] [address] Home Care Provider Orthopedics 03/20/19 Taz Howard MD [address] [address] Referring Orthopedics 03/20/19 Eliz Bingham MD [address] [address] General Surgery 07/04/22 Ney Hart MD [address] [place] [address] Gastroenterology 07/04/22 Mino Rosales LISW [address] [facility] [place] [address] Senior Php Developer Hematology/Oncology 01/08/23 Quality Control Associate Relationship Specialty Start Date End Date Jacinta Rivas MD [address] [place] [address] PCP - General Internal Medicine 02/03/19 Dena Lechuga RN Specialty Public Address Systems Mechanic Oncology 04/24/17 Jesus Carter MD [address] [place] [address] Physician Radiation Oncology 04/24/17 Taz Howard MD [address] [address] Home Care Provider Orthopedics 03/20/19 Taz Howard MD [address] [address] Referring Orthopedics 03/20/19 Eliz Bingham MD [address] [address] General Surgery 07/04/22 Ney Hart MD [address] [place] [address] Gastroenterology 07/04/22 Mino Rosales LISW [address] [place] [address] Senior Php Developer Hematology/Oncology 01/08/23 Tatianna Crook [facility] [address] [place] [address] Pharmacist Pharmacy 07/18/23 Quality Control Associate Relationship Specialty Start Date End Date Jacinta Rivas MD [address] [place] [address] PCP - General Internal Medicine 02/03/19 Dena Lechuga, FE Specialty Public Address Systems Mechanic Oncology 04/24/17 Jesus Carter MD [address] [facility] [place] [address] Physician Radiation Oncology 04/24/17 Taz Howard MD [address] [address] Home Care Provider Orthopedics 03/20/19 Taz Howard MD [address] [address] Referring Orthopedics 03/20/19 Eliz Bingham MD [address] [address] General Surgery 07/04/22 Ney Hart MD [address] [facility] [address] [address] Gastroenterology 07/04/22 Mino Rosales LISW [address] [place] [address] Senior Php Developer Hematology/Oncology 01/08/23 Tatianna Crook [facility] [address] [place] [address] Pharmacist Pharmacy 07/18/23 Quality Control Associate Relationship Specialty Start Date End Date Jacinta Rivas MD [address] [place] [address] PCP - General Internal Medicine 02/03/19 Dena Lechuga, RN Specialty Public Address Systems Mechanic Oncology 04/24/17 Jesus Carter MD [address] [place] [address] Physician Radiation Oncology 04/24/17 Taz Howard MD [address] [address] Home Care Provider Orthopedics 03/20/19 Taz Howard MD [address] [address] Referring Orthopedics 03/20/19 Eliz Bingham MD [address] [address] General Surgery 07/04/22 Ney Hart MD [address] [address] Gastroenterology 07/04/22 Mino Rosales LISW [address] [place] [address] Senior Php Developer Hematology/Oncology 01/08/23 Tatianna Crook, [facility] [address] [place] [address] Pharmacist Pharmacy 07/18/23 Quality Control Associate Relationship Specialty Start Date End Date Jacinta Rivas MD [address] [place] [address] PCP - General Internal Medicine 02/03/19 Dena Lechuga RN Specialty Public Address Systems Mechanic Oncology 04/24/17 Jesus Carter MD [address] [place] [address] Physician Radiation Oncology 04/24/17 Taz Howard MD [address] [address] Home Care Provider Orthopedics 03/20/19 Taz Howard MD [address] [address] Referring Orthopedics 03/20/19 Eliz Bingham MD [address] [address] General Surgery 07/04/22 Ney Hart MD [address] [address] Gastroenterology 07/04/22 Mino Rosales LISW [address] [place] [address] Senior Php Developer Hematology/Oncology 01/08/23 Tatianna Crook, [facility] [address] [place] [address] Pharmacist Pharmacy 07/18/23 Quality Control Associate Relationship Specialty Start Date End Date Jacinta Rivas MD [address] [place] [address] PCP - General Internal Medicine 02/03/19 Dena Lechuga RN Specialty Public Address Systems Mechanic Oncology 04/24/17 Jesus Carter MD [address] [facility] [place] [address] Physician Radiation Oncology 04/24/17 Taz Howard MD [address] [address] Home Care Provider Orthopedics 03/20/19 Taz Howard MD [address] [address] Referring Orthopedics 03/20/19 Eliz Bingham MD [address] [address] General Surgery 07/04/22 Ney Hart MD [address] [address] Gastroenterology 07/04/22 Mino Rosales LISW [address] [place] [address] Senior Php Developer Hematology/Oncology 01/08/23 Tatianna Crook, [facility] [address] [place] [address] Pharmacist Pharmacy 07/18/23 Quality Control Associate Relationship Specialty Start Date End Date Jacinta Rivas MD [address] [place] [address] PCP - General Internal Medicine 02/03/19 Dena Lechuga RN Specialty Public Address Systems Mechanic Oncology 04/24/17 Jesus Carter MD [address] [facility] [place] [address] Physician Radiation Oncology 04/24/17 Taz Howard MD [address] [address] Home Care Provider Orthopedics 03/20/19 Taz Howard MD [address] [address] Referring Orthopedics 03/20/19 Eliz Bingham MD [address] [address] General Surgery 07/04/22 Ney Hart MD [address] [address] Gastroenterology 07/04/22 Mino Rosales LISW [address] [place] [address] Senior Php Developer Hematology/Oncology 01/08/23 Tatianna Crook, [facility] [address] [place] [address] Pharmacist Pharmacy 07/18/23 Quality Control Associate Relationship Specialty Start Date End Date Jacinta Rivas MD [address] [place] [address] PCP - General Internal Medicine 02/03/19 Dena Lechuga, RN Specialty Public Address Systems Mechanic Oncology 04/24/17 Jesus Carter MD [address] [place] [address] Physician Radiation Oncology 04/24/17 Taz Howard MD [address] [address] Home Care Provider Orthopedics 03/20/19 Taz Howard MD [address] [address] Referring Orthopedics 03/20/19 Eliz Bingham MD [address] [address] General Surgery 07/04/22 Ney Hart MD [address] [address] Gastroenterology 07/04/22 Mino Rosales LISW [address] [place] [address] Senior Php Developer Hematology/Oncology 01/08/23 Tatianna Crook, [facility] [address] [place] [address] Pharmacist Pharmacy 07/18/23 Quality Control Associate Relationship Specialty Start Date End Date Jacinta Rivas MD [address] [place] [address] PCP - General Internal Medicine 02/03/19 Dena Lechuga, RN Specialty Public Address Systems Mechanic Oncology 04/24/17 Jesus Carter MD [address] [place] [address] Physician Radiation Oncology 04/24/17 Taz Howard MD [address] [address] Home Care Provider Orthopedics 03/20/19 Taz Howard MD [address] [facility] [address] [place] [address] Referring Orthopedics 03/20/19 Eliz Bingham MD [address] [facility] [address] [place] [address] General Surgery 07/04/22 Ney Hart MD [address] [address] Gastroenterology 07/04/22 Mino Rosales LISW [address] [place] [address] Senior Php Developer Hematology/Oncology 01/08/23 Tatianna Crook, [facility] [address] [place] [address] Pharmacist Pharmacy 07/18/23 Quality Control Associate Relationship Specialty Start Date End Date Jacinta Rivas MD [address] [place] [address] PCP - General Internal Medicine 02/03/19 Dena Lechuga, RN Specialty Public Address Systems Mechanic Oncology 04/24/17 Jesus Carter MD [address] [place] [address] Physician Radiation Oncology 04/24/17 Taz Hoawrd MD [address] [place] [address] Home Care Provider Orthopedics 03/20/19 Taz Howard MD [address] [address] Referring Orthopedics 03/20/19 Eliz Bingham MD [address] [address] General Surgery 07/04/22 Ney Hart MD [address] [address] Gastroenterology 07/04/22 Mino Rosales LISW [address] [place] [address] Senior Php Developer Hematology/Oncology 01/08/23 Tatianna Crook, [facility] [address] [place] [address] Pharmacist Pharmacy 07/18/23 Quality Control Associate Relationship Specialty Start Date End Date Jacinta Rivas MD [address] [place] [address] PCP - General Internal Medicine 02/03/19 Dena Lechuga, RN Specialty Public Address Systems Mechanic Oncology 04/24/17 Jesus Carter MD [address] [place] [address] Physician Radiation Oncology 04/24/17 Taz Howard MD [address] [address] Home Care Provider Orthopedics 03/20/19 Taz Howard MD [address] [address] Referring Orthopedics 03/20/19 Eliz Bingham MD [address] [address] General Surgery 07/04/22 Ney Hart MD [address] [facility] [address] [place] [address] Gastroenterology 07/04/22 Mino Rosales LISW [address] [place] [address] Senior Php Developer Hematology/Oncology 01/08/23 Tatianna Crook, [facility] [address] [facility] [place] [address] Pharmacist Pharmacy 07/18/23 Quality Control Associate Relationship Specialty Start Date End Date Jacinta Rivas MD [address] [place] [address] PCP - General Internal Medicine 02/03/19 Dena Lechuga RN Specialty Public Address Systems Mechanic Oncology 04/24/17 Jesus Carter MD [address] [place] [address] Physician Radiation Oncology 04/24/17 Taz Howard MD [address] [address] Home Care Provider Orthopedics 03/20/19 Taz Howard MD [address] [address] Referring Orthopedics 03/20/19 Eliz Bingham MD [address] [address] General Surgery 07/04/22 Ney Hart MD [address] [facility] [address] [place] [address] Gastroenterology 07/04/22 Mino Rosales LISW [address] [place] [address] Senior Php Developer Hematology/Oncology 01/08/23 Quality Control Associate Relationship Specialty Start Date End Date Jacinta Rivas MD [address] [place] [address] PCP - General Internal Medicine 02/03/19 Dena Lechuga RN Specialty Public Address Systems Mechanic Oncology 04/24/17 Jesus Carter MD [address] [facility] [place] [address] Physician Radiation Oncology 04/24/17 Taz Howard MD [address] [address] Home Care Provider Orthopedics 03/20/19 Taz Howard MD [address] [address] Referring Orthopedics 03/20/19 Eliz Bingham MD [address] [address] General Surgery 07/04/22 Ney Hart MD [address] [facility] [address] [address] Gastroenterology 07/04/22 Mino Rosales LISW [address] [place] [address] Senior Php Developer Hematology/Oncology 01/08/23 Tatianna Crook, [facility] [address] [place] [address] Pharmacist Pharmacy 07/18/23 Quality Control Associate Relationship Specialty Start Date End Date Jacinta Rivas MD [address] [place] [address] PCP - General Internal Medicine 02/03/19 Dena Lechuga, RN Specialty Public Address Systems Mechanic Oncology 04/24/17 Jesus Carter MD [address] [place] [address] Physician Radiation Oncology 04/24/17 Taz Howard MD [address] [address] Home Care Provider Orthopedics 03/20/19 Taz Howard MD [address] [address] Referring Orthopedics 03/20/19 Eliz Bingham MD [address] [address] General Surgery 07/04/22 Ney Hart MD [address] [address] Gastroenterology 07/04/22 Mino Rosales LISW [address] [place] [address] Senior Php Developer Hematology/Oncology 01/08/23 Tatianna Crook [facility] [address] [place] [address] Pharmacist Pharmacy 07/18/23 Quality Control Associate Relationship Specialty Start Date End Date Jacinta Rivas MD [address] [place] [address] PCP - General Internal Medicine 02/03/19 Dena Lechuga RN Specialty Public Address Systems Mechanic Oncology 04/24/17 Jesus Carter MD [address] [place] [address] Physician Radiation Oncology 04/24/17 Taz Howard MD [address] [address] Home Care Provider Orthopedics 03/20/19 Taz Howard MD [address] [address] Referring Orthopedics 03/20/19 Eliz Bingham MD [address] [address] General Surgery 07/04/22 Ney Hart MD [address] [address] Gastroenterology 07/04/22 Mino Rosales LISW [address] [place] [address] Senior Php Developer Hematology/Oncology 01/08/23 Tatianna Crook, [facility] [address] [place] [address] Pharmacist Pharmacy 07/18/23 Quality Control Associate Relationship Specialty Start Date End Date Jacinta Rivas MD [address] [place] [address] PCP - General Internal Medicine 02/03/19 Dena Lechuga RN Specialty Public Address Systems Mechanic Oncology 04/24/17 Jesus Carter MD [address] [facility] [place] [address] Physician Radiation Oncology 04/24/17 Taz Howard MD [address] [address] Home Care Provider Orthopedics 03/20/19 Taz Howard MD [address] [address] Referring Orthopedics 03/20/19 Eliz Bingham MD [address] [address] General Surgery 07/04/22 Ney Hart MD [address] [address] Gastroenterology 07/04/22 Mino Rosales LISW [address] [place] [address] Senior Php Developer Hematology/Oncology 01/08/23 MikecaTatianna poon, [facility] [address] [place] [address] Pharmacist Pharmacy 07/18/23 Quality Control Associate Relationship Specialty Start Date End Date Jacinta Rivas MD [address] [place] [address] PCP - General Internal Medicine 02/03/19 Dena Lechuga, RN Specialty Public Address Systems Mechanic Oncology 04/24/17 Jesus Carter MD [address] [place] [address] Physician Radiation Oncology 04/24/17 Taz Howard MD [address] [address] Home Care Provider Orthopedics 03/20/19 Taz Howard MD [address] [address] Referring Orthopedics 03/20/19 Eliz Bingham MD [address] [address] General Surgery 07/04/22 Ney Hart MD [address] [address] Gastroenterology 07/04/22 Mino Rosales LISW [address] [place] [address] Senior Php Developer Hematology/Oncology 01/08/23 Tatianna Crook, [facility] [address] [place] [address] Pharmacist Pharmacy 07/18/23 Quality Control Associate Relationship Specialty Start Date End Date Jacinta Rivas MD [address] [place] [address] PCP - General Internal Medicine 02/03/19 Dena Lechuga, RN Specialty Public Address Systems Mechanic Oncology 04/24/17 Jesus Carter MD [address] [place] [address] Physician Radiation Oncology 04/24/17 Taz Howard MD [address] [address] Home Care Provider Orthopedics 03/20/19 Taz Howard MD [address] [address] Referring Orthopedics 03/20/19 Eliz Bingham MD [address] [address] General Surgery 07/04/22 Ney Hart MD [address] [address] Gastroenterology 07/04/22 Mino Rosales LISW [address] [place] [address] Senior Php Developer Hematology/Oncology 01/08/23 Tatianna Crook, Formerly [facility] [address] [place] [address] Pharmacist Pharmacy 07/18/23 Quality Control Associate Relationship Specialty Start Date End Date Jacinta Rivas MD [address] [place] [address] PCP - General Internal Medicine 02/03/19 Dena Lechuga, FE Specialty Public Address Systems Mechanic Oncology 04/24/17 Jesus Carter MD [address] [place] [address] Physician Radiation Oncology 04/24/17 Taz Howard MD [address] [address] Home Care Provider Orthopedics 03/20/19 Taz Howard MD [address] [address] Referring Orthopedics 03/20/19 Eliz Bingham MD [address] [address] General Surgery 07/04/22 Ney Hart MD [address] [address] Gastroenterology 07/04/22 Mino Rosales LISW [address] [place] [address] Senior Php Developer Hematology/Oncology 01/08/23 Tatianna Crook, [facility]ly [facility] [address] [place] [address] Pharmacist Pharmacy 07/18/23 Quality Control Associate Relationship Specialty Start Date End Date Jacinta Rivas MD [address] [place] [address] PCP - General Internal Medicine 02/03/19 Dena Lechuga, RN Specialty Public Address Systems Mechanic Oncology 04/24/17 Jesus Carter MD [address] [place] [address] Physician Radiation Oncology 04/24/17 Taz Howard MD [address] [address] Home Care Provider Orthopedics 03/20/19 Taz Howard MD [address] [address] Referring Orthopedics 03/20/19 Eliz Bingham MD [address] [address] General Surgery 07/04/22 Ney Hart MD [address] [address] Gastroenterology 07/04/22 Mino Rosales LISW [address] [place] [address] Senior Php Developer Hematology/Oncology 01/08/23 Tatianna Crook, [facility] [address] [place] [address] Pharmacist Pharmacy 07/18/23 Quality Control Associate Relationship Specialty Start Date End Date Jacinta Rivas MD [address] [place] [address] PCP - General Internal Medicine 02/03/19 Dena Lechuga, RN Specialty Public Address Systems Mechanic Oncology 04/24/17 Jesus Carter MD [address] [place] [address] Physician Radiation Oncology 04/24/17 Taz Howard MD [address] [address] Home Care Provider Orthopedics 03/20/19 Taz Howard MD [address] [address] Referring Orthopedics 03/20/19 Eliz Bingham MD [address] [address] General Surgery 07/04/22 Ney Hart MD [address] [facility] [address] [place] [address] Gastroenterology 07/04/22 Bobby Mino TILE DESIGNER [address] [place] [address] Senior Php Developer Hematology/Oncology 01/08/23 Tatianna Crook, [facility]ly [facility] [address] [facility] [place] [address] Pharmacist Pharmacy 07/18/23 Quality Control Associate Relationship Specialty Start Date End Date Jacinta Rivas MD [address] [place] [address] PCP - General Internal Medicine 02/03/19 Dena Lechuga RN Specialty Public Address Systems Mechanic Oncology 04/24/17 Jesus Carter MD [address] [place] [address] Physician Radiation Oncology 04/24/17 Taz Howard MD [address] [address] Home Care Provider Orthopedics 03/20/19 Taz Howard MD [address] [address] Referring Orthopedics 03/20/19 Eliz Bingham MD [address] [address] General Surgery 07/04/22 Ney Hart MD [address] [facility] [address] [place] [address] Gastroenterology 07/04/22 Mino Rosales LISW [address] [place] [address] Senior Php Developer Hematology/Oncology 01/08/23 Tatianna Crook, [facility] [address] [facility] [place] [address] Pharmacist Pharmacy 07/18/23 Quality Control Associate Relationship Specialty Start Date End Date Jacinta Rivas MD [address] [place] [address] PCP - General Internal Medicine 02/03/19 Dena Lechuga, FE Specialty Public Address Systems Mechanic Oncology 04/24/17 Jesus Carter MD [address] [place] [address] Physician Radiation Oncology 04/24/17 Taz Howard MD [address] [address] Home Care Provider Orthopedics 03/20/19 Taz Howard MD [address] [address] Referring Orthopedics 03/20/19 Eliz Bingham MD [address] [address] General Surgery 07/04/22 Ney Hart MD [address] [facility] [address] [address] Gastroenterology 07/04/22 Mino Rosales LISW [address] [place] [address] Senior Php Developer Hematology/Oncology 01/08/23 Tatianna Crook, [facility] [address] [place] [address] Pharmacist Pharmacy 07/18/23 Quality Control Associate Relationship Specialty Start Date End Date Jacinta Rivas MD [address] [place] [address] PCP - General Internal Medicine 02/03/19 Dena Lechuga RN Specialty Public Address Systems Mechanic Oncology 04/24/17 Jesus Carter MD [address] [place] [address] Physician Radiation Oncology 04/24/17 Taz Howard MD [address] [address] Home Care Provider Orthopedics 03/20/19 Taz Howard MD [address] [address] Referring Orthopedics 03/20/19 Eliz Bingham MD [address] [address] General Surgery 07/04/22 Ney Hart MD [address] [facility] [address] [address] Gastroenterology 07/04/22 Mino Rosales LISW [address] [place] [address] Senior Php Developer Hematology/Oncology 01/08/23 Tatianna Crook, [facility] [address] [place] [address] Pharmacist Pharmacy 07/18/23 Quality Control Associate Relationship Specialty Start Date End Date Jacinta Rivas MD [address] [place] [address] PCP - General Internal Medicine 02/03/19 Dena Lechuga, RN Specialty Public Address Systems Mechanic Oncology 04/24/17 Jesus Carter MD [address] [place] [address] Physician Radiation Oncology 04/24/17 Taz Howard MD [address] [address] Home Care Provider Orthopedics 03/20/19 Taz Howard MD [address] [address] Referring Orthopedics 03/20/19 Eliz Bingham MD [address] [address] General Surgery 07/04/22 Ney Hart MD [address] [address] Gastroenterology 07/04/22 Mino Rosales LISW [address] [place] [address] Senior Php Developer Hematology/Oncology 01/08/23 Tatianna Crook [facility] [address] [place] [address] Pharmacist Pharmacy 07/18/23 Quality Control Associate Relationship Specialty Start Date End Date Jacinta Rivas MD [address] [place] [address] PCP - General Internal Medicine 02/03/19 Dena Lechuga RN Specialty Public Address Systems Mechanic Oncology 04/24/17 Jesus Carter MD [address] [place] [address] Physician Radiation Oncology 04/24/17 Taz Howard MD [address] [address] Home Care Provider Orthopedics 03/20/19 Taz Howard MD [address] [address] Referring Orthopedics 03/20/19 Eliz Bingham MD [address] [address] General Surgery 07/04/22 Ney Hart MD [address] [address] Gastroenterology 07/04/22 Mino Rosales LISW [address] [place] [address] Senior Php Developer Hematology/Oncology 01/08/23 Tatianna Crook, [facility] [address] [place] [address] Pharmacist Pharmacy 07/18/23 Quality Control Associate Relationship Specialty Start Date End Date Jacinta Rivas MD [address] [place] [address] PCP - General Internal Medicine 02/03/19 Dena Lechuga RN Specialty Public Address Systems Mechanic Oncology 04/24/17 Jesus Carter MD [address] [facility] [address] Physician Radiation Oncology 04/24/17 Taz Howard MD [address] [facility] [address] [place] [address] Home Care Provider Orthopedics 03/20/19 Taz Howard MD [address] [facility] [address] [place] [address] Referring Orthopedics 03/20/19 Eliz Bingham MD [address] [facility] [address] [place] [address] General Surgery 07/04/22 Ney Hart MD [address] [address] Gastroenterology 07/04/22 Mino Rosales LISW [address] [place] [address] Senior Php Developer Hematology/Oncology 01/08/23 PaneccaTatianna poon, [facility]ly [facility] [address] [place] [address] Pharmacist Pharmacy 07/18/23 Quality Control Associate Relationship Specialty Start Date End Date Jacinta Rivas MD [address] [place] [address] PCP - General Internal Medicine 02/03/19 Dena Lechuga, RN Specialty Public Address Systems Mechanic Oncology 04/24/17 Jesus Carter MD [address] [place] [address] Physician Radiation Oncology 04/24/17 Taz Howard MD [address] [address] Home Care Provider Orthopedics 03/20/19 Taz Howard MD [address] [address] Referring Orthopedics 03/20/19 Eliz Bingham MD [address] [address] General Surgery 07/04/22 Ney Hart MD [address] [address] Gastroenterology 07/04/22 Mino Rosales LISW [address] [place] [address] Senior Php Developer Hematology/Oncology 01/08/23 Tatianna Crook, [facility] [address] [place] [address] Pharmacist Pharmacy 07/18/23 Quality Control Associate Relationship Specialty Start Date End Date Jacinta Rivas MD [address] [place] [address] PCP - General Internal Medicine 02/03/19 Dena Lechuga, RN Specialty Public Address Systems Mechanic Oncology 04/24/17 Jesus Carter MD [address] [place] [address] Physician Radiation Oncology 04/24/17 Taz Howard MD [address] [address] Home Care Provider Orthopedics 03/20/19 Taz Howard MD [address] [address] Referring Orthopedics 03/20/19 Lizeth Acosta, PT [address] [place] [address] Sound Editor Acute Care 03/21/19 11/05/22 Quality Control Associate Relationship Specialty Start Date End Date Jacinta Rivas MD [address] [place] [address] PCP - General Internal Medicine 02/03/19 Dena Lechuga, RN Specialty Public Address Systems Mechanic Oncology 04/24/17 Jesus Carter MD [address] [place] [place] [address] Physician Radiation Oncology 04/24/17 Taz Howard MD [address] [address] Home Care Provider Orthopedics 03/20/19 Taz Howard MD [address] [address] Referring Orthopedics 03/20/19 Eliz Bingham MD [address] [address] General Surgery 07/04/22 Ney Hart MD [address] [place] [address] [address] Gastroenterology 07/04/22 Mino Rosales LISW [address] [place] [address] Senior Php Developer Hematology/Oncology 01/08/23 Tatianna Crook [facility] [address] [facility] [place] [address] Pharmacist Pharmacy 07/18/23 Quality Control Associate Relationship Specialty Start Date End Date Jacinta Rivas MD [address] [place] [address] PCP - General Internal Medicine 02/03/19 Dena Lechuga, FE Specialty Public Address Systems Mechanic Oncology 04/24/17 Jesus Carter MD [address] [place] [address] Physician Radiation Oncology 04/24/17 Taz Howard MD [address] [address] Home Care Provider Orthopedics 03/20/19 Taz Howard MD [address] [address] Referring Orthopedics 03/20/19 Eliz Bingham MD [address] [address] General Surgery 07/04/22 Ney Hart MD [address] [facility] [address] [address] Gastroenterology 07/04/22 Mino Rosales LISW [address] [place] [address] Senior Php Developer Hematology/Oncology 01/08/23 Tatianna Crook [facility] [address] [place] [address] Pharmacist Pharmacy 07/18/23 Quality Control Associate Relationship Specialty Start Date End Date Jacinta Rivas MD [address] [place] [address] PCP - General Internal Medicine 02/03/19 Dena Lechuga, FE Specialty Public Address Systems Mechanic Oncology 04/24/17 Jesus Carter MD [address] [place] [address] Physician Radiation Oncology 04/24/17 Taz Howard MD [address] [address] Home Care Provider Orthopedics 03/20/19 Taz Howard MD [address] [address] Referring Orthopedics 03/20/19 Eliz Bingham MD [address] [address] General Surgery 07/04/22 Ney Hart MD [address] [address] Gastroenterology 07/04/22 Mino Rosales LISW [address] [place] [address] Senior Php Developer Hematology/Oncology 01/08/23 Tatianna Crook, [facility] [address] [place] [address] Pharmacist Pharmacy 07/18/23 Quality Control Associate Relationship Specialty Start Date End Date Jacinta Rivas MD [address] [place] [address] PCP - General Internal Medicine 02/03/19 Dena Lechuga, RN Specialty Public Address Systems Mechanic Oncology 04/24/17 Jesus Carter MD [address] [place] [address] Physician Radiation Oncology 04/24/17 Lisa Malhotra, FE [address] [place] [address] Research Nurse Hematology/Oncology 05/23/18 01/25/22 Taz Howard MD [address] [address] Home Care Provider Orthopedics 03/20/19 Taz Howard MD [address] [address] Referring Orthopedics 03/20/19 Lizeth Acosta, PT [address] [place], [place] [address] Sound Editor Acute Care 03/21/19 11/05/22 Quality Control Associate Relationship Specialty Start Date End Date Jacinta Rivas MD [address] [place] [address] PCP - General Internal Medicine 02/03/19 Dena Lechuga, RN Specialty Public Address Systems Mechanic Oncology 04/24/17 Jesus Carter MD [address] [place] [address] Physician Radiation Oncology 04/24/17 Taz Howard MD [address] [facility] [address] [place] [address] Home Care Provider Orthopedics 03/20/19 Taz Howard MD [address] [facility] [address] [place] [address] Referring Orthopedics 03/20/19 Eliz Bingham MD [address] [facility] [address] [place] [address] General Surgery 07/04/22 Nye Hart MD [address] [facility] [address] [address] Gastroenterology 07/04/22 Mino Rosales LISW [address] [place] [address] Senior Php Developer Hematology/Oncology 01/08/23 Tatianna Crook, [facility] [address] [facility] [place] [address] Pharmacist Pharmacy 07/18/23 Quality Control Associate Relationship Specialty Start Date End Date Jacinta Rivas MD [address] [place] [address] PCP - General Internal Medicine 02/03/19 Dena Lechuga RN Specialty Public Address Systems Mechanic Oncology 04/24/17 Jesus Carter MD [address] [facility] [place] [address] Physician Radiation Oncology 04/24/17 Lisa Malhotra, FE [address] [facility] [place] [address] Research Nurse Hematology/Oncology 05/23/18 01/25/22 Taz Howard MD [address] [address] Home Care Provider Orthopedics 03/20/19 Taz Howard MD [address] [address] Referring Orthopedics 03/20/19 Lizeth Acosta, PT [address] [place] [address] Sound Editor Acute Care 03/21/19 11/05/22 Quality Control Associate Relationship Specialty Start Date End Date Jacinta Rivas MD [address] [place] [address] PCP - General Internal Medicine 02/03/19 Dena Lechuga RN Specialty Public Address Systems Mechanic Oncology 04/24/17 Jesus Carter MD [address] [place] [address] Physician Radiation Oncology 04/24/17 Taz Howard MD [address] [place] [address] Home Care Provider Orthopedics 03/20/19 Taz Howard MD [address] [address] Referring Orthopedics 03/20/19 Eliz Bingham MD [address] [address] General Surgery 07/04/22 Ney Hart MD [address] [facility] [address] [place] [address] Gastroenterology 07/04/22 Mino Rosales LISW [address] [place] [address] Senior Php Developer Hematology/Oncology 01/08/23 Ambreen Tatianna, [facility] [address] [place] [address] Pharmacist Pharmacy 07/18/23 Quality Control Associate Relationship Specialty Start Date End Date Jacinta Rivas MD [address] [place] [address] PCP - General Internal Medicine 02/03/19 Dena Lechuga, RN Specialty Public Address Systems Mechanic Oncology 04/24/17 Jesus Carter MD [address] [place] [address] Physician Radiation Oncology 04/24/17 Taz Howard MD [address] [address] Home Care Provider Orthopedics 03/20/19 Taz Howard MD [address] [address] Referring Orthopedics 03/20/19 Eliz Bingham MD [address] [address] General Surgery 07/04/22 Ney Hart MD [address] [facility] [address] [place] [address] Gastroenterology 07/04/22 Mino Rosales LISW [address] [place] [address] Senior Php Developer Hematology/Oncology 01/08/23 Tatianna Crook [facility] [address] [facility] [place] [address] Pharmacist Pharmacy 07/18/23 Quality Control Associate Relationship Specialty Start Date End Date Jacinta Rivas MD [address] [place] [address] PCP - General Internal Medicine 02/03/19 Dena Lechuga, FE Specialty Public Address Systems Mechanic Oncology 04/24/17 Jesus Carter MD [address] [facility] [place] [address] Physician Radiation Oncology 04/24/17 Taz Howard MD [address] [address] Home Care Provider Orthopedics 03/20/19 Taz Howard MD [address] [address] Referring Orthopedics 03/20/19 Eliz Bingham MD [address] [address] General Surgery 07/04/22 Ney Hart MD [address] [facility] [address] [address] Gastroenterology 07/04/22 Mino Rosales LISW [address] [place] [address] Senior Php Developer Hematology/Oncology 01/08/23 Tatianna Crook [facility] [address] [place] [address] Pharmacist Pharmacy 07/18/23 Quality Control Associate Relationship Specialty Start Date End Date Jacinta Rivas MD [address] [place] [address] PCP - General Internal Medicine 02/03/19 Dena Lechuga, FE Specialty Public Address Systems Mechanic Oncology 04/24/17 Jesus Carter MD [address] [place] [address] Physician Radiation Oncology 04/24/17 Taz Howard MD [address] [address] Home Care Provider Orthopedics 03/20/19 Taz Howard MD [address] [address] Referring Orthopedics 03/20/19 Eliz Bingham MD [address] [address] General Surgery 07/04/22 Ney Hart MD [address] [address] Gastroenterology 07/04/22 Mino Rosales LISW [address] [place] [address] Senior Php Developer Hematology/Oncology 01/08/23 Tatianna Crook, [facility] [address] [place] [address] Pharmacist Pharmacy 07/18/23 Quality Control Associate Relationship Specialty Start Date End Date Jacinta Rivas MD [address] [place] [address] PCP - General Internal Medicine 02/03/19 Dena Lechuga, RN Specialty Public Address Systems Mechanic Oncology 04/24/17 Jesus Carter MD [address] [place] [address] Physician Radiation Oncology 04/24/17 Taz Howard MD [address] [facility] [address] [place] [address] Home Care Provider Orthopedics 03/20/19 Taz Howard MD [address] [facility] [address] [place] [address] Referring Orthopedics 03/20/19 Eliz Bingham MD [address] [facility] [address] [place] [address] General Surgery 07/04/22 Ney Hart MD [address] [address] Gastroenterology 07/04/22 Mino Rosales LISW [address] [place] [address] Senior Php Developer Hematology/Oncology 01/08/23 Tatianna Crook, [facility] [address] [place], [place] [address] Pharmacist Pharmacy 07/18/23 Quality Control Associate Relationship Specialty Start Date End Date Jacinta Rivas MD [address] [place] [address] PCP - General Internal Medicine 02/03/19 Dena Lechuga RN Specialty Public Address Systems Mechanic Oncology 04/24/17 Jesus Carter MD [address] [facility] [place] [address] Physician Radiation Oncology 04/24/17 Taz Howard MD [address] [address] Home Care Provider Orthopedics 03/20/19 Taz Howard MD [address] [address] Referring Orthopedics 03/20/19 Eliz Bingham MD [address] [address] General Surgery 07/04/22 Ney Hart MD [address] [address] Gastroenterology 07/04/22 Mino Rosales LISW [address] [place] [address] Senior Php Developer Hematology/Oncology 01/08/23 Tatianna Crook, [facility] [address] [place] [address] Pharmacist Pharmacy 07/18/23 Quality Control Associate Relationship Specialty Start Date End Date Jacinta Rivas MD [address] [place] [address] PCP - General Internal Medicine 02/03/19 Dena Lechuga RN Specialty Public Address Systems Mechanic Oncology 04/24/17 Jesus Carter MD [address] [place] [address] Physician Radiation Oncology 04/24/17 Taz Howard MD [address] [address] Home Care Provider Orthopedics 03/20/19 Taz Howard MD [address] [address] Referring Orthopedics 03/20/19 Elzi Bingham MD [address] [address] General Surgery 07/04/22 Ney Hart MD [address] [address] Gastroenterology 07/04/22 Mino Rosales LISW [address] [place] [address] Senior Php Developer Hematology/Oncology 01/08/23 Tatianna Crook, [facility] [address] [place] [address] Pharmacist Pharmacy 07/18/23 Quality Control Associate Relationship Specialty Start Date End Date Jacinta Rivas MD [address] [place] [address] PCP - General Internal Medicine 02/03/19 Dena Lechuga, RN Specialty Public Address Systems Mechanic Oncology 04/24/17 Jesus Carter MD [address] [place] [address] Physician Radiation Oncology 04/24/17 Taz Howard MD [address] [address] Home Care Provider Orthopedics 03/20/19 Taz Howard MD [address] [address] Referring Orthopedics 03/20/19 Eliz Bingham MD [address] [address] General Surgery 07/04/22 Ney Hart MD [address] [address] Gastroenterology 07/04/22 Mino Rosales LISW [address] [place] [address] Senior Php Developer Hematology/Oncology 01/08/23 PaneccasiTatianna slaughter, [facility] [address] [place] [address] Pharmacist Pharmacy 07/18/23 Quality Control Associate Relationship Specialty Start Date End Date Jacinta Rivas MD [address] [place] [address] PCP - General Internal Medicine 02/03/19 Dena Lechuga, RN Specialty Public Address Systems Mechanic Oncology 04/24/17 Jesus Carter MD [address] [place] [address] Physician Radiation Oncology 04/24/17 Taz Howard MD [address] [address] Home Care Provider Orthopedics 03/20/19 Taz Howard MD [address] [facility] [address] [place] [address] Referring Orthopedics 03/20/19 Eliz Bingham MD [address] [facility] [address] [place] [address] General Surgery 07/04/22 Ney Hrat MD [address] [address] Gastroenterology 07/04/22 Mino Rosales LISW [address] [place] [address] Senior Php Developer Hematology/Oncology 01/08/23 Tatianna Crook, [facility] [address] [place] [address] Pharmacist Pharmacy 07/18/23 Cathy Burr, 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 [address] [place] [address] Hardener Helper Internal Medicine 03/16/24 Lisbet Pizano HULLER OPERATOR.PLATEN GRINDER [address] [place] [address] Hardener Helper Internal Medicine 03/16/24 Quality Control Associate Relationship Specialty Start Date End Date Jacinta Rivas MD [address] [place] [address] PCP - General Internal Medicine 02/03/19 Dena Lechuga, RN Specialty Public Address Systems Mechanic Oncology 04/24/17 Jesus Carter MD [address] [place] [address] Physician Radiation Oncology 04/24/17 Taz Howard MD [address] [facility] [address] [place] [address] Home Care Provider Orthopedics 03/20/19 Taz Howard MD [address] [facility] [address] [place] [address] Referring Orthopedics 03/20/19 Eliz Bingham MD [address] [facility] [address] [place] [address] General Surgery 07/04/22 Ney Hart MD [address] [address] Gastroenterology 07/04/22 Mino Rosales LISW [address] [place] [address] Senior Php Developer Hematology/Oncology 01/08/23 Tatianna Crook [facility] [address] [place] [address] Pharmacist Pharmacy 07/18/23 Cathy Burr APRN.FLOORING MACHINE FEEDER [address] [place] [address] Hardener Helper Internal Medicine 03/16/24 Lisbet Pizano HULLER OPERATOR.PLATEN GRINDER [address] [place], [place] [address] Hardener Helper Internal Medicine 03/16/24 Quality Control Associate Relationship Specialty Start Date End Date Jacinta Rivas MD [address] [place] [address] PCP - General Internal Medicine 02/03/19 Dena Lechuga, RN Specialty Public Address Systems Mechanic Oncology 04/24/17 Jesus Carter MD [address] [place] [place] [address] Physician Radiation Oncology 04/24/17 Taz Howard MD [address] [address] Home Care Provider Orthopedics 03/20/19 Taz Howard MD [address] [address] Referring Orthopedics 03/20/19 Eliz Bingham MD [address] [address] General Surgery 07/04/22 Ney Hart MD [address] [facility] [address] [address] Gastroenterology 07/04/22 Mino Rosales LISW [address] [place] [address] Senior Php Developer Hematology/Oncology 01/08/23 Tatianna Crook, [facility] [address] [place] [address] Pharmacist Pharmacy 07/18/23 Cathy Burr APRN.FLOORING MACHINE FEEDER [address] [place] [address] Hardener Helper Internal Medicine 03/16/24 Lisbet Pizano APRN.PLATEN GRINDER [address] [place] [address] Hardener Helper Internal Medicine 03/16/24 Quality Control Associate Relationship Specialty Start Date End Date Jacinta Rivas MD [address] [place] [address] PCP - General Internal Medicine 02/03/19 Dena Lechuga, RN Specialty Public Address Systems Mechanic Oncology 04/24/17 Jeuss Carter MD [address] [place] [address] Physician Radiation Oncology 04/24/17 Taz Howard MD [address] [address] Home Care Provider Orthopedics 03/20/19 Taz Howard MD [address] [address] Referring Orthopedics 03/20/19 Eliz Bingham MD [address] [address] General Surgery 07/04/22 Ney Hart MD [address] [address] Gastroenterology 07/04/22 Mino Rosales LISW [address] [place] [address] Senior Php Developer Hematology/Oncology 01/08/23 Tatianna Crook [facility] [address] [place] [address] Pharmacist Pharmacy 07/18/23 Cathy Burr APRN.FLOORING MACHINE FEEDER [address] [place], [place] 130971 Hardener Helper Internal Medicine 03/16/24 Lisbet Pizano APRN.PLATEN GRINDER [address] [place], [place] 035881 Hardener Helper Internal Medicine 03/16/24 Quality Control Associate Relationship Specialty Start Date End Date Jacinta Rivas MD [address] [place], [place] 130531 PCP - General Internal Medicine 02/03/19 Dena Lechuga, FE Specialty Public Address Systems Mechanic Oncology 04/24/17 Jesus Carter MD [address] [place] [address] Physician Radiation Oncology 04/24/17 Taz Howard MD [address] [address] Home Care Provider Orthopedics 03/20/19 Taz Howard MD [address] [address] Referring Orthopedics 03/20/19 Eliz Bingham MD [address] [address] General Surgery 07/04/22 Ney Hart MD [address] [facility] [address] [address] Gastroenterology 07/04/22 Mino Rosales LISW [address] [place] [address] Senior Php Developer Hematology/Oncology 01/08/23 Tatianna Crook, [facility] [address] [place] [address] Pharmacist Pharmacy 07/18/23 Cathy Burr APRN.FLOORING MACHINE FEEDER [address] [place] [address] Hardener Helper Internal Medicine 03/16/24 Lisbet Pizano APRN.PLATEN GRINDER [address] [place], [place] 213941 Hardener Helper Internal Medicine 03/16/24 Quality Control Associate Relationship Specialty Start Date End Date Jacinta Rivas MD [address] [place] [address] PCP - General Internal Medicine 02/03/19 Dena Lechuga RN Specialty Public Address Systems Mechanic Oncology 04/24/17 Jesus Carter MD [address] [place] [address] Physician Radiation Oncology 04/24/17 Taz Howard MD [address] [address] Home Care Provider Orthopedics 03/20/19 Taz Howard MD [address] [address] Referring Orthopedics 03/20/19 Eliz Bingham MD [address] [address] General Surgery 07/04/22 Ney Hart MD [address] [address]71 Gastroenterology 07/04/22 Mino Rosales LISW [address] [place] [address] Senior Php Developer Hematology/Oncology 01/08/23 Tatianna Crook, [facility] [address] [place] [address] Pharmacist Pharmacy 07/18/23 Cathy Burr APRN.FLOORING MACHINE FEEDER [address] [place], [place] 616941 Hardener Helper Internal Medicine 03/16/24 Lisbet Pizano APRN.PLATEN GRINDER [address] [place], [place] 330811 Hardener Helper Internal Medicine 03/16/24 Quality Control Associate Relationship Specialty Start Date End Date Jacinta Rivas MD [address] [place], [place] 963261 PCP - General Internal Medicine 02/03/19 Dena Lechuga, FE Specialty Public Address Systems Mechanic Oncology 04/24/17 Jesus Carter MD [address] [place], [place] 057421 Physician Radiation Oncology 04/24/17 Taz Howard MD [address] [address] Home Care Provider Orthopedics 03/20/19 Taz Howard MD [address] [address] Referring Orthopedics 03/20/19 Eliz Bingham MD [address] [address] General Surgery 07/04/22 Ney Hart MD [address] [facility] [address] [address] Gastroenterology 07/04/22 Mino Rosales LISW [address] [place] [address] Senior Php Developer Hematology/Oncology 01/08/23 Tatianna Crook, [facility] [address] [place] [address] Pharmacist Pharmacy 07/18/23 Cathy Burr APRN.FLOORING MACHINE FEEDER [address] [place] [address] Hardener Helper Internal Medicine 03/16/24 Lisbet Pizano HULLER OPERATOR.PLATEN GRINDER [address] [place], [place] 137231 Hardener Helper Internal Medicine 03/16/24 Quality Control Associate Relationship Specialty Start Date End Date Jacinta Rivas MD [address] [place], [place] 255491 PCP - General Internal Medicine 02/03/19 Dena Lechuga, FE Specialty Public Address Systems Mechanic Oncology 04/24/17 Jesus Carter MD [address] [facility] [place] [address] Physician Radiation Oncology 04/24/17 Taz Howard MD [address] [place] [address] [address] [place] [address] Home Care Provider Orthopedics 03/20/19 Taz Howard MD [address] [facility] [address] [place] [address] Referring Orthopedics 03/20/19 Eliz Bingham MD [address] [facility] [address] [place] [address] General Surgery 07/04/22 Ney Hart MD [address] [facility] [address] [place] [address] Gastroenterology 07/04/22 Mino Rosales LISW [address] [place] [address] Senior Php Developer Hematology/Oncology 01/08/23 Tatianna Crook, [facility] [address] [place] [address] Pharmacist Pharmacy 07/18/23 Cathy Burr, FELICIA.FLOORING MACHINE FEEDER [address] [place] [address] Hardener Helper Internal Medicine 03/16/24 Lisbet Pizano APRN.PLATEN GRINDER [address] [place] [address] Hardener Helper Internal Medicine 03/16/24 Quality Control Associate Relationship Specialty Start Date End Date Jacinta Rivas MD [address] [place] [address] PCP - General Internal Medicine 02/03/19 Dena Lechuga, FE Specialty Public Address Systems Mechanic Oncology 04/24/17 Jesus Carter MD [address] [facility] [place] [address] Physician Radiation Oncology 04/24/17 Taz Howard MD [address] [facility] [address] [place] [address] Home Care Provider Orthopedics 03/20/19 Taz Howard MD [address] [facility] [address] [place] [address] Referring Orthopedics 03/20/19 Eliz Bingham MD [address] [facility] [address] [place] [address] General Surgery 07/04/22 Ney Hart MD [address] [address] Gastroenterology 07/04/22 Mino Rosales LISW [address] [place] [address] Senior Php Developer Hematology/Oncology 01/08/23 SbeccaTatianna poon, [facility] [address] [place] [address] Pharmacist Pharmacy 07/18/23 Cathy Burr, 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 [address] [place] [address] Hardener Helper Internal Medicine 03/16/24 Lisbet Pizano, HULLER OPERATOR.PLATEN GRINDER [address] [place] [address] Hardener Helper Internal Medicine 03/16/24 Quality Control Associate Relationship Specialty Start Date End Date Jacinta Rivas MD [address] [place] [address] PCP - General Internal Medicine 02/03/19 Dena Lechuga, FE Specialty Public Address Systems Mechanic Oncology 04/24/17 Jesus Carter MD [address] [place] [address] Physician Radiation Oncology 04/24/17 Taz Howard MD [address] [address] Home Care Provider Orthopedics 03/20/19 Taz Howard MD [address] [address] Referring Orthopedics 03/20/19 Eliz Bingham MD [address] [address] General Surgery 07/04/22 Ney Hart MD [address] [facility] [address] [address] Gastroenterology 07/04/22 Mino Rosales LISW [address] [place] [address] Senior Php Developer Hematology/Oncology 01/08/23 PaneccaTatianna poon, [facility] [address] [place] [address] Pharmacist Pharmacy 07/18/23 Cathy Burr APRN.FLOORING MACHINE FEEDER [address] [place] [address] Hardener Helper Internal Medicine 03/16/24 Lisbet Pizano APRN.PLATEN GRINDER [address] [place] [address] Hardener Helper Internal Medicine 03/16/24 Quality Control Associate Relationship Specialty Start Date End Date Jacinta Rivas MD [address] [place] [address] PCP - General Internal Medicine 02/03/19 Dena Lechuga, RN Specialty Public Address Systems Mechanic Oncology 04/24/17 Jesus Carter MD [address] [place] [address] Physician Radiation Oncology 04/24/17 Taz Howard MD [address] [facility] [address] [place] [address] Home Care Provider Orthopedics 03/20/19 Taz Howard MD [address] [facility] [address] [place] [address] Referring Orthopedics 03/20/19 Eliz Bingham MD [address] [facility] [address] [place] [address] General Surgery 07/04/22 Ney Hart MD [address] [address] Gastroenterology 07/04/22 Mino Rosales LISW [address] [place] [address] Senior Php Developer Hematology/Oncology 01/08/23 SbecTatianna hankins, [facility] [address] [place], [place] [id number] Pharmacist Pharmacy 07/18/23 Cathy Burr APRN.FLOORING MACHINE FEEDER [address] [place], [place] 141011 Hardener Helper Internal Medicine 03/16/24 Lisbet Pizano APRN.PLATEN GRINDER [address] [place] [address] Hardener Helper Internal Medicine 03/16/24 Quality Control Associate Relationship Specialty Start Date End Date Jacinta Rivas MD [address] [place] [address] PCP - General Internal Medicine 02/03/19 Dena Lechuga, FE Specialty Public Address Systems Mechanic Oncology 04/24/17 Jesus Carter MD [address] [place], [place] 9578[address] Physician Radiation Oncology 04/24/17 Taz Howard MD [address] [address] Home Care Provider Orthopedics 03/20/19 Taz Howard MD [address] [id number] Referring Orthopedics 03/20/19 Eliz Bingham MD [address] [address] General Surgery 07/04/22 Ney aHrt MD [address] [address] Gastroenterology 07/04/22 Mino Rosales LISW [address] [place] [address] Senior Php Developer Hematology/Oncology 01/08/23 Tatianna Crook, [facility] [address] [place], [place] 8[address] Pharmacist Pharmacy 07/18/23 Cathy Burr, 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 [address] [place], [place] 392721 Hardener Helper Internal Medicine 03/16/24 Lisbet Pizano APRN.PLATEN GRINDER [address] [place], [place] [id number] [facility] Internal Medicine 03/16/24 Quality Control Associate Relationship Specialty Start Date End Date Jacinta Rivas MD [address] [place], [place] [id number] PCP - General Internal Medicine 02/03/19 Dena Lechuga RN Specialty Public Address Systems Mechanic Oncology 04/24/17 Jesus Carter MD [address] [place] [address] Physician Radiation Oncology 04/24/17 Taz Howard MD [address] [address] Home Care Provider Orthopedics 03/20/19 Taz Howard MD [address] [address] Referring Orthopedics 03/20/19 Eliz Bingham MD [address] [address] General Surgery 07/04/22 Ney Hart MD [address] [place] [address] [address] Gastroenterology 07/04/22 Mino Rosales LISW [address] [place] [address] Senior Php Developer Hematology/Oncology 01/08/23 Tatianna Crook [facility] [address] [place] [address] Pharmacist Pharmacy 07/18/23 Cathy Burr APRN.FLOORING MACHINE FEEDER [address] [place], [place] 143361 Hardener Helper Internal Medicine 03/16/24 Lisbet Pizano APRN.PLATEN GRINDER [address] [place], [place] [address] Hardener Helper Internal Medicine 03/16/24 Quality Control Associate Relationship Specialty Start Date End Date Jacinta Rivas MD [address] [place] [address] PCP - General Internal Medicine 02/03/19 Dena Lechuga, FE Specialty Public Address Systems Mechanic Oncology 04/24/17 Jesus Carter MD [address] [place] [address] Physician Radiation Oncology 04/24/17 Taz Howard MD [address] [address] Home Care Provider Orthopedics 03/20/19 Taz Howard MD [address] [address] Referring Orthopedics 03/20/19 Eliz Bingham MD [address] [address] General Surgery 07/04/22 Ney Hart MD [address] [address] Gastroenterology 07/04/22 Mino Rosales LISW [address] [place] [address] Senior Php Developer Hematology/Oncology 01/08/23 Tatianna Crook, [facility] [address] [place] [address] Pharmacist Pharmacy 07/18/23 Cathy Burr APRN.FLOORING MACHINE FEEDER [address] [place] [address] Hardener Helper Internal Medicine 03/16/24 Lisbet Pizano APRN.PLATEN GRINDER [address] [place] [address] Hardener Helper Internal Medicine 03/16/24 Quality Control Associate Relationship Specialty Start Date End Date Jacinta Rivas MD [address] [place] [address] PCP - General Internal Medicine 02/03/19 Dena Lechuga, RN Specialty Public Address Systems Mechanic Oncology 04/24/17 Jesus Carter MD [address] [place] [address] Physician Radiation Oncology 04/24/17 Taz Howard MD [address] [address] Home Care Provider Orthopedics 03/20/19 Taz Howard MD [address] [address] Referring Orthopedics 03/20/19 Eliz Bingham MD [address] [address] General Surgery 07/04/22 Ney Hart MD [address] [address] Gastroenterology 07/04/22 Mino Rosales LISW [address] [place] [address] Senior Php Developer Hematology/Oncology 01/08/23 Tatianna Crook, [facility] [address] [place] [address] Pharmacist Pharmacy 07/18/23 Cathy Burr, 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 [address] [place] [address] Hardener Helper Internal Medicine 03/16/24 Lisbet Pizano, HULLER OPERATOR.PLATEN GRINDER [address] [place] [address] Hardener Helper Internal Medicine 03/16/24 Quality Control Associate Relationship Specialty Start Date End Date Jacinta Rivas MD [address] [place] [address] PCP - General Internal Medicine 02/03/19 Dena Lechuga, RN Specialty Public Address Systems Mechanic Oncology 04/24/17 Jesus Carter MD [address] [place] [address] Physician Radiation Oncology 04/24/17 Taz Howard MD [address] [address] Home Care Provider Orthopedics 03/20/19 Taz Howard MD [address] [address] Referring Orthopedics 03/20/19 Eliz Bingham MD [address] [address] General Surgery 07/04/22 Ney Hart MD [address] [address] Gastroenterology 07/04/22 Mino Rosales LISW [address] [place] [address] Senior Php Developer Hematology/Oncology 01/08/23 Tatianna Crook [facility] [address] [place] [address] Pharmacist Pharmacy 07/18/23 Cathy Burr APRN.FLOORING MACHINE FEEDER [address] [place] [address] Hardener Helper Internal Medicine 03/16/24 Lisbet Pizano APRN.PLATEN GRINDER [address] [place] [address] Hardener Helper Internal Medicine 03/16/24 Quality Control Associate Relationship Specialty Start Date End Date Jacinta Rivas MD [address] [place] [address] PCP - General Internal Medicine 02/03/19 Dena Lechuga, FE Specialty Public Address Systems Mechanic Oncology 04/24/17 Jesus Carter MD [address] [place] [address] Physician Radiation Oncology 04/24/17 Taz Howard MD [address] [address] Home Care Provider Orthopedics 03/20/19 Taz Howard MD [address] [address] Referring Orthopedics 03/20/19 Eliz Bingham MD [address] [address] General Surgery 07/04/22 Ney Hart MD [address] [address] Gastroenterology 07/04/22 Mino Rosales LISW [address] [place] [address] Senior Php Developer Hematology/Oncology 01/08/23 PaneccaTatianna poon, [facility] [address] [place] [address] Pharmacist Pharmacy 07/18/23 Cathy Burr APRN.FLOORING MACHINE FEEDER [address] [place] [address] Hardener Helper Internal Medicine 03/16/24 Lisbet Pizano APRN.PLATEN GRINDER [address] [place] [address] Hardener Helper Internal Medicine 03/16/24 Quality Control Associate Relationship Specialty Start Date End Date Jacinta Rivas MD [address] [place] [address] PCP - General Internal Medicine 02/03/19 Dena Lechuga, RN Specialty Public Address Systems Mechanic Oncology 04/24/17 Jesus Carter MD [address] [place] [address] Physician Radiation Oncology 04/24/17 Taz Howard MD [address] [facility] [address] [place] [address] Home Care Provider Orthopedics 03/20/19 Taz Howard MD [address] [address] Referring Orthopedics 03/20/19 Eliz Bingham MD [address] [address] General Surgery 07/04/22 Ney Hart MD [address] [address] Gastroenterology 07/04/22 Mino Rosales LISW [address] [place] [address] Senior Php Developer Hematology/Oncology 01/08/23 PanecTatianna hankins, [facility] [address] [place] [address] Pharmacist Pharmacy 07/18/23 Cathy Burr APRN.FLOORING MACHINE FEEDER [address] [place] [address] Hardener Helper Internal Medicine 03/16/24 Lisbet Pizano APRN.PLATEN GRINDER [address] [place] [address] Hardener Helper Internal Medicine 03/16/24 Quality Control Associate Relationship Specialty Start Date End Date Jacinta Rivas MD [address] [place] [address] PCP - General Internal Medicine 02/03/19 Dena Lechuga, FE Specialty Public Address Systems Mechanic Oncology 04/24/17 Jseus Carter MD [address] [place], [place] 607981 Physician Radiation Oncology 04/24/17 Taz Howard MD [address] [address] Home Care Provider Orthopedics 03/20/19 Taz Howard MD [address] [address] Referring Orthopedics 03/20/19 Eliz Bingham MD [address] [address] General Surgery 07/04/22 Ney Hart MD [address] [address] Gastroenterology 07/04/22 Mino Rosales LISW [address] [place] [address] Senior Php Developer Hematology/Oncology 01/08/23 Tatianna Crook, [facility] [address] [place], [place] 168531 Pharmacist Pharmacy 07/18/23 Cathy Burr APRN.FLOORING MACHINE FEEDER [address] [place] [address] Hardener Helper Internal Medicine 03/16/24 Lisbet Pizano HULLER OPERATOR.PLATEN GRINDER [address] [place] [address] Hardener Helper Internal Medicine 03/16/24 Quality Control Associate Relationship Specialty Start Date End Date Jacinta Rivas MD [address] [place], [place] 333261 PCP - General Internal Medicine 02/03/19 Dena Lechuga, FE Specialty Public Address Systems Mechanic Oncology 04/24/17 Jesus Carter MD [address] [place] [address] Physician Radiation Oncology 04/24/17 Taz Howard MD [address] [address] Home Care Provider Orthopedics 03/20/19 Taz Howard MD [address] [address] Referring Orthopedics 03/20/19 Eliz Bingham MD [address] [address] General Surgery 07/04/22 Ney Hart MD [address] [place] [address] [address] Gastroenterology 07/04/22 Mino Rosales LISW [address] [place] [address] Senior Php Developer Hematology/Oncology 01/08/23 Tatianna Crook [facility] [address] [place], [place] 806781 Pharmacist Pharmacy 07/18/23 Cathy Burr APRN.FLOORING MACHINE FEEDER [address] [place], [place] 026921 Hardener Helper Internal Medicine 03/16/24 Lisbet Pizano HULLER OPERATOR.PLATEN GRINDER [address] [place], [place] 24686[address] Hardener Helper Internal Medicine 03/16/24 Quality Control Associate Relationship Specialty Start Date End Date Jacinta Rivas MD [address] [place], [place] 57737691 PCP - General Internal Medicine 02/03/19 Dena Lechuga, FE Specialty Public Address Systems Mechanic Oncology 04/24/17 Jesus Carter MD [address] [place], [place] 57055691 Physician Radiation Oncology 04/24/17 Taz Howard MD [address] [address] Home Care Provider Orthopedics 03/20/19 Taz Howard MD [address] [address] Referring Orthopedics 03/20/19 Eliz Bingham MD [address] [address] General Surgery 07/04/22 Ney Hart MD [address] [address] Gastroenterology 07/04/22 Mino Rosales LISW [address] [place] [address] Senior Php Developer Hematology/Oncology 01/08/23 Tatianna Crook, [facility] [address] [place] [address] Pharmacist Pharmacy 07/18/23 Cathy Burr, 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 [address] [place] [address] Hardener Helper Internal Medicine 03/16/24 Lisbet Pizano HULLER OPERATOR.PLATEN GRINDER [address] [place], [place] 637621 Hardener Helper Internal Medicine 03/16/24 Quality Control Associate Relationship Specialty Start Date End Date Jacinta Rivas MD [address] [place], [place] 222381 PCP - General Internal Medicine 02/03/19 Dena Lechuga, RN Specialty Public Address Systems Mechanic Oncology 04/24/17 Jesus Carter MD [address] [place], [place] 030371 Physician Radiation Oncology 04/24/17 Taz Howard MD [address] [address] Home Care Provider Orthopedics 03/20/19 Taz Howard MD [address] [address] Referring Orthopedics 03/20/19 Eliz Bingham MD [address] [address] General Surgery 07/04/22 Ney Hart MD [address] [address] Gastroenterology 07/04/22 Mino Rosales LISW [address] [place] [address] Senior Php Developer Hematology/Oncology 01/08/23 Tatianna Crook [facility] [address] [place] [address] Pharmacist Pharmacy 07/18/23 Cathy Burr APRN.FLOORING MACHINE FEEDER [address] [place] [address] Hardener Helper Internal Medicine 03/16/24 Lisbet Pizano HULLER OPERATOR.PLATEN GRINDER [address] [place], [place] 767911 Hardener Helper Internal Medicine 03/16/24 Quality Control Associate Relationship Specialty Start Date End Date Jacinta Rivas MD [address] [place] [address] PCP - General Internal Medicine 02/03/19 Dena Lechuga, RN Specialty Public Address Systems Mechanic Oncology 04/24/17 Jesus Carter MD [address] [place], [place] 248521 Physician Radiation Oncology 04/24/17 Taz Howard MD [address] [address] Home Care Provider Orthopedics 03/20/19 Taz Howard MD [address] [address] Referring Orthopedics 03/20/19 Eliz Bingham MD [address] [address] General Surgery 07/04/22 Ney Hart MD [address] [address] Gastroenterology 07/04/22 Mino Rosales LISW [address] [place] [address] Senior Php Developer Hematology/Oncology 01/08/23 [facility] [address] [place] [address] Pharmacist Pharmacy 07/18/23 Cathy Burr APRN.FLOORING MACHINE FEEDER [address] [place] [address] Hardener Helper Internal Medicine 03/16/24 Lisbet Pizano APRN.PLATEN GRINDER [address] [place] [address] Hardener Helper Internal Medicine 03/16/24 Quality Control Associate Relationship Specialty Start Date End Date Jacinta Rivas MD [address] [place], [place] 077491 PCP - General Internal Medicine 02/03/19 Dena Lechuga, RN Specialty Public Address Systems Mechanic Oncology 04/24/17 Jesus Carter MD [address] [place] [address] Physician Radiation Oncology 04/24/17 Taz Howard MD [address] [address] Home Care Provider Orthopedics 03/20/19 Taz Howard MD [address] [address] Referring Orthopedics 03/20/19 Eliz Bingham MD [address] [address] General Surgery 07/04/22 Ney Hart MD [address] [address] Gastroenterology 07/04/22 Mino Rosales LISW [address] [place] [address] Senior Php Developer Hematology/Oncology 01/08/23 Tatianna Crook, [facility] [address] [place] [address] Pharmacist Pharmacy 07/18/23 Cathy Burr APRN.FLOORING MACHINE FEEDER [address] [place] [address] Hardener Helper Internal Medicine 03/16/24 Lisbet Pizano APRN.PLATEN GRINDER [address] [place], [place] 417411 Hardener Helper Internal Medicine 03/16/24 Quality Control Associate Relationship Specialty Start Date End Date Jacinta Rivas MD [address] [place] [address] PCP - General Internal Medicine 02/03/19 Dena Lechuga, RN Specialty Public Address Systems Mechanic Oncology 04/24/17 Jesus Carter MD [address] [place] [address] Physician Radiation Oncology 04/24/17 Taz Howard MD [address] [address] Home Care Provider Orthopedics 03/20/19 Taz Howard MD [address] [address] Referring Orthopedics 03/20/19 Eliz Bingham MD [address] [address] General Surgery 07/04/22 Ney Hart MD [address] [address] Gastroenterology 07/04/22 Mino Rosales LISW [address] [place] [address] Senior Php Developer Hematology/Oncology 01/08/23 Tatianna Crook, [facility] [address] [place] [address] Pharmacist Pharmacy 07/18/23 Cathy Burr APRN.FLOORING MACHINE FEEDER [address] [place] [address] Hardener Helper Internal Medicine 03/16/24 Lisbet Pizano, HULLER OPERATOR.PLATEN GRINDER [address] [place] [address] Hardener Helper Internal Medicine 03/16/24 Quality Control Associate Relationship Specialty Start Date End Date Jacinta Rivas MD [address] [place] [address] PCP - General Internal Medicine 02/03/19 Dena Lechuga, FE Specialty Public Address Systems Mechanic Oncology 04/24/17 Jesus Carter MD [address] [place] [address] Physician Radiation Oncology 04/24/17 Taz Howard MD [address] [address] Home Care Provider Orthopedics 03/20/19 Taz Howard MD [address] [address] Referring Orthopedics 03/20/19 Eliz Bingham MD [address] [address] General Surgery 07/04/22 Ney Hart MD [address] [address] Gastroenterology 07/04/22 Mino Rosales LISW [address] [place] [address] Senior Php Developer Hematology/Oncology 01/08/23 Tatianna Crook, [facility] [address] [place] [address] Pharmacist Pharmacy 07/18/23 Cathy Burr APRN.FLOORING MACHINE FEEDER [address] [place] [address] Hardener Helper Internal Medicine 03/16/24 Lisbet Pizano APRN.PLATEN GRINDER [address] [place] [address] Hardener Helper Internal Medicine 03/16/24 Quality Control Associate Relationship Specialty Start Date End Date Jacinta Rivas MD [address] [place] [address] PCP - General Internal Medicine 02/03/19 Dena Lechuga, FE Specialty Public Address Systems Mechanic Oncology 04/24/17 Jesus Carter MD [address] [place] [place] [address] Physician Radiation Oncology 04/24/17 Taz Howard MD [address] [address] Home Care Provider Orthopedics 03/20/19 Taz Howard MD [address] [address] Referring Orthopedics 03/20/19 Eliz Bingham MD [address] [address] General Surgery 07/04/22 Ney Hart MD [address] [address] Gastroenterology 07/04/22 Mino Rosales LISW [address] [place] [address] Senior Php Developer Hematology/Oncology 01/08/23 Tatianna Crook [facility] 1740 [facility] [place] [address] Pharmacist Pharmacy 07/18/23 Cathy Burr, FELICIA.FLOORING MACHINE FEEDER [address]40 [place] [address] Hardener Helper Internal Medicine 03/16/24 Lisbet Pizano HULLER OPERATOR.PLATEN GRINDER [address] [place] [address] Hardener Helper Internal Medicine 03/16/24 Quality Control Associate Relationship Specialty Start Date End Date Jacinta Rivas MD [address] [place] [address] PCP - General Internal Medicine 02/03/19 Dena Lechuga, FE Specialty Public Address Systems Mechanic Oncology 04/24/17 Jesus Carter MD [address] [place] [address] Physician Radiation Oncology 04/24/17 Taz Howard MD [address] [address] Home Care Provider Orthopedics 03/20/19 Taz Howard MD [address] [address] Referring Orthopedics 03/20/19 Eliz Bingham MD [address] [address] General Surgery 07/04/22 Ney Hart MD [address] [place] [address] Gastroenterology 07/04/22 Mino Rosales LISW [address] [place] [address] Senior Php Developer Hematology/Oncology 01/08/23 Ambreen Tatianna, [facility]ly [facility] 1740 [place] [address] Pharmacist Pharmacy 07/18/23 Cathy Burr, 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 [address] [facility] [place] [address] Hardener Helper Internal Medicine 03/16/24 Lisbet Pizano HULLER OPERATOR.PLATEN GRINDER [address] [facility] [place] [address] Hardener Helper Internal Medicine 03/16/24 Quality Control Associate Relationship Specialty Start Date End Date Jacinta Rivas MD [address] [facility] [place] [address] PCP - General Internal Medicine 02/03/19 Dena Lechuga, RN Specialty Public Address Systems Mechanic Oncology 04/24/17 Jesus Carter MD [address] [facility] [place] [address] Physician Radiation Oncology 04/24/17 Taz Howard MD [address] [address] Home Care Provider Orthopedics 03/20/19 Taz Howard MD [address] [address] Referring Orthopedics 03/20/19 Eliz Bingham MD [address] [address] General Surgery 07/04/22 Ney Hart MD [address] [address] Gastroenterology 07/04/22 Mino Rosales LISW [address]21 [place] [address] Senior Php Developer Hematology/Oncology 01/08/23 SbecTatianna hankins, Formerly [facility] [address] [place] [address] Pharmacist Pharmacy 07/18/23 Cathy Burr APRN.FLOORING MACHINE FEEDER [address] [place] [address] Hardener Helper Internal Medicine 03/16/24 Lisbet Pizano HULLER OPERATOR.PLATEN GRINDER [address] [place] [address] Hardener Helper Internal Medicine 03/16/24 Quality Control Associate Relationship Specialty Start Date End Date Jacinta Rivas MD [address] [place] [address] PCP - General Internal Medicine 02/03/19 Dena Lechuga, RN Specialty Public Address Systems Mechanic Oncology 04/24/17 Jesus Carter MD [address] [facility] [place] [address] Physician Radiation Oncology 04/24/17 Taz Howard MD [address] [address] Home Care Provider Orthopedics 03/20/19 Taz Howard MD [address] [facility] [address] [place] [address] Referring Orthopedics 03/20/19 Eliz Bingham MD [address] [facility] [address] [place] [address] General Surgery 07/04/22 Ney Hart MD [address] [facility] [address] [place] [address] Gastroenterology 07/04/22 Mino Rosales LISW 721 [place] [address] Senior Php Developer Hematology/Oncology 01/08/23 [facility] 1740 [facility] [place] [address] Pharmacist Pharmacy 07/18/23 Cathy Burr, 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 [address]40 [place] [address] Hardener Helper Internal Medicine 03/16/24 Lisbet Pizano APRN.PLATEN GRINDER [address] [place] [address] Hardener Helper Internal Medicine 03/16/24 Quality Control Associate Relationship Specialty Start Date End Date Jacinta Rivas MD [address] [place] [address] PCP - General Internal Medicine 02/03/19 Dena Lechuga, RN Specialty Public Address Systems Mechanic Oncology 04/24/17 Jesus Carter MD [address] [place] [address] Physician Radiation Oncology 04/24/17 Taz Howard MD [address] [facility] [address] [place] [address] Home Care Provider Orthopedics 03/20/19 Taz Howard MD [address] [facility] [address] [place] [address] Referring Orthopedics 03/20/19 Eliz Bingham MD [address] [facility] [address] [place] [address] General Surgery 07/04/22 Ney Hart MD [address] [facility] [address] [address] Gastroenterology 07/04/22 Mino Rosales LISW 721 [place] [address] Senior Php Developer Hematology/Oncology 01/08/23 Tatianna Crook [facility] [address] [place] [address] Pharmacist Pharmacy 07/18/23 Cathy Burr, 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 [address] [place] [address] Hardener Helper Internal Medicine 03/16/24 Lisbet Pizano, HULLER OPERATOR.PLATEN GRINDER [address] [place] [address] Hardener Helper Internal Medicine 03/16/24 Quality Control Associate Relationship Specialty Start Date End Date Jacinta Rivas MD [address] [place] [address] PCP - General Internal Medicine 02/03/19 Dena Lechuga, RN Specialty Public Address Systems Mechanic Oncology 04/24/17 Jesus Carter MD [address] [place] [place] [address] Physician Radiation Oncology 04/24/17 Taz Howard MD [address] [address] Home Care Provider Orthopedics 03/20/19 Taz Howard MD [address] [address] Referring Orthopedics 03/20/19 Eliz Bingham MD [address] [address] General Surgery 07/04/22 Ney Hart MD [address] [address] Gastroenterology 07/04/22 Mino Rosales LISW 721 [place] [address] Senior Php Developer Hematology/Oncology 01/08/23 Tatianna Crook [facility] [address] [place] [address] Pharmacist Pharmacy 07/18/23 Cathy Burr APRN.FLOORING MACHINE FEEDER [address] [place] [address] Hardener Helper Internal Medicine 03/16/24 Lisbet Pizano APRN.PLATEN GRINDER [address] [place] [address] Hardener Helper Internal Medicine 06/30/24 Quality Control Associate Relationship Specialty Start Date End Date Jacinta Rivas MD [address] [place], [place] [address] PCP - General Internal Medicine 02/03/19 Dena Lechuga, RN Specialty Public Address Systems Mechanic Oncology 04/24/17 Jesus Carter MD [address] [place] [address] Physician Radiation Oncology 04/24/17 Taz Howard MD [address] [address] Home Care Provider Orthopedics 03/20/19 Taz Howard MD [address] [address] Referring Orthopedics 03/20/19 Eliz Bingham MD [address] [address] General Surgery 07/04/22 Ney Hart MD [address] [address] Gastroenterology 07/04/22 Mino Rosales LISW [address]21 [place] [address] Senior Php Developer Hematology/Oncology 01/08/23 Tatianna Crook [facility] [address] [place] [address] Pharmacist Pharmacy 07/18/23 Cathy Burr APRN.FLOORING MACHINE FEEDER [address] [place], [place] 733171 Hardener Helper Internal Medicine 03/16/24 Lisbet Pizano APRN.PLATEN GRINDER [address] [place], [place] [address] Hardener Helper Internal Medicine 06/30/24 Quality Control Associate Relationship Specialty Start Date End Date Jacinta Rivas MD [address] [place] [address] PCP - General Internal Medicine 02/03/19 Dena Lechuga, FE Specialty Public Address Systems Mechanic Oncology 04/24/17 Jesus Carter MD [address] [facility] [place] [address] Physician Radiation Oncology 04/24/17 Taz Howard MD [address] [address] Home Care Provider Orthopedics 03/20/19 Taz Howard MD [address] [address] Referring Orthopedics 03/20/19 Eliz Bingham MD [address] [address] General Surgery 07/04/22 Ney Hart MD [address] [address] Gastroenterology 07/04/22 Mino Rosales LISW [address] [place] [address] Senior Php Developer Hematology/Oncology 01/08/23 Tatianna Crook [facility] [address] [place] [address] Pharmacist Pharmacy 07/18/23 Cathy Burr, FELICIA.FLOORING MACHINE FEEDER [address] [facility] [place] [address] Hardener Helper Internal Medicine 03/16/24 Lisbet Pizano HULLER OPERATOR.PLATEN GRINDER [address] [facility] [place] [address] Hardener Helper Internal Medicine 06/30/24 Quality Control Associate Relationship Specialty Start Date End Date Jacinta Rivas MD [address] [place] [address] PCP - General Internal Medicine 02/03/19 Dena Lechuga RN Specialty Public Address Systems Mechanic Oncology 04/24/17 Jesus Carter MD [address] [place] [address] Physician Radiation Oncology 04/24/17 Taz Howard MD [address] [address] Home Care Provider Orthopedics 03/20/19 Taz Howard MD [address] [address] Referring Orthopedics 03/20/19 Eliz Bingham MD [address] [address] General Surgery 07/04/22 Ney Hart MD [address] [address] Gastroenterology 07/04/22 Mino Rosales LISW [address]21 [place] [address] Senior Php Developer Hematology/Oncology 01/08/23 Tatianna Crook, [facility] [address] [place] [address] Pharmacist Pharmacy 07/18/23 Cathy Burr, 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 [address] [place] [address] Hardener Helper Internal Medicine 03/16/24 Lisbet Pizano HULLER OPERATOR.PLATEN GRINDER [address] [place] [address] Hardener Helper Internal Medicine 06/30/24 Quality Control Associate Relationship Specialty Start Date End Date Jacinta Rivas MD [address] [place] [address] PCP - General Internal Medicine 02/03/19 Dena Lechuga, FE Specialty Public Address Systems Mechanic Oncology 04/24/17 Jesus Carter MD [address] [place] [address] Physician Radiation Oncology 04/24/17 Taz Howard MD [address] [address] Home Care Provider Orthopedics 03/20/19 Taz Howard MD [address] [address] Referring Orthopedics 03/20/19 Eliz Bingham MD [address] [address] General Surgery 07/04/22 Ney Hart MD [address] E [facility] [place] [address] Gastroenterology 07/04/22 Mino Rosales LISW [address] [place] [address] Senior Php Developer Hematology/Oncology 01/08/23 Tatianna Crook [facility] 1740 [place] [address] Pharmacist Pharmacy 07/18/23 Cathy Burr APRN.FLOORING MACHINE FEEDER [address] [place] [address] Hardener Helper Internal Medicine 03/16/24 Lisbet Pizano HULLER OPERATOR.PLATEN GRINDER [address] [place] [address] Hardener Helper Internal Medicine 06/30/24 Quality Control Associate Relationship Specialty Start Date End Date Jacinta Rivas MD [address] [place] [address] PCP - General Internal Medicine 02/03/19 Dena Lechuga, FE Specialty Public Address Systems Mechanic Oncology 04/24/17 Jesus Carter MD [address] [place] [address] Physician Radiation Oncology 04/24/17 Taz Howard MD [address] [address] Home Care Provider Orthopedics 03/20/19 Taz Howard MD [address] [facility] [address] [place] [address] Referring Orthopedics 03/20/19 Eilz Bingham MD [address] [facility] [address] [place] [address] General Surgery 07/04/22 Ney Hart MD [address] [facility] [address] [place] [address] Gastroenterology 07/04/22 Mino Rosales LISW 721 [place] [address] Senior Php Developer Hematology/Oncology 01/08/23 PaneccaTatianna poon, Formerly [facility] [address] [facility] [place] [address] Pharmacist Pharmacy 07/18/23 Cathy Burr, 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 [address] [place] [address] Hardener Helper Internal Medicine 03/16/24 Lisbet Pizano, HULLER OPERATOR.PLATEN GRINDER [address] [facility] [place] [address] Hardener Helper Internal Medicine 06/30/24 Quality Control Associate Relationship Specialty Start Date End Date Jacinta Rivas MD [address] [facility] [place] [address] PCP - General Internal Medicine 02/03/19 Dena Lechuga, FE Specialty Public Address Systems Mechanic Oncology 04/24/17 Jesus Carter MD [address] [place] [address] Physician Radiation Oncology 04/24/17 Taz Howard MD [address] [facility] [address] [place] [address] Home Care Provider Orthopedics 03/20/19 Taz Howard MD [address] [facility] [address] [place] [address] Referring Orthopedics 03/20/19 Eliz Bingham MD [address] [facility] [address] [place] [address] General Surgery 07/04/22 Ney Hart MD [address] [address] Gastroenterology 07/04/22 Mino Rosales LISW 721 [place] [address] Senior Php Developer Hematology/Oncology 01/08/23 SbeccaTatianna poon, Former[facility] 1740 [facility] [place] [address] Pharmacist Pharmacy 07/18/23 Cathy Burr, 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 [address] [place] [address] Hardener Helper Internal Medicine 03/16/24 Lisbet Pizano, HULLER OPERATOR.PLATEN GRINDER [address] [place] [address] Hardener Helper Internal Medicine 06/30/24 Quality Control Associate Relationship Specialty Start Date End Date Jacinta Rivas MD [address] [place] [address] PCP - General Internal Medicine 02/03/19 Dena Lechuga, RN Specialty Public Address Systems Mechanic Oncology 04/24/17 Jesus Carter MD [address] [place] [address] Physician Radiation Oncology 04/24/17 Taz Howard MD [address] [address] Home Care Provider Orthopedics 03/20/19 Taz Howard MD [address] [address] Referring Orthopedics 03/20/19 Eliz Bingham MD [address] [address] General Surgery 07/04/22 Ney Hart MD [address] [address] Gastroenterology 07/04/22 Mino Rosales LISW [address] [place] [address] Senior Php Developer Hematology/Oncology 01/08/23 Tatianna Crook [facility] [address] [place] [address] Pharmacist Pharmacy 07/18/23 Cathy Burr APRN.FLOORING MACHINE FEEDER [address] [place] [address] Hardener Helper Internal Medicine 03/16/24 Lisbet Pizano APRN.PLATEN GRINDER [address] [place] [address] Hardener Helper Internal Medicine 06/30/24 Quality Control Associate Relationship Specialty Start Date End Date Jacinta Rivas MD [address] [place] [address] PCP - General Internal Medicine 02/03/19 Dena Lechuga, RN Specialty Public Address Systems Mechanic Oncology 04/24/17 Jesus Carter MD [address] [place] [address] Physician Radiation Oncology 04/24/17 Taz Howard MD [address] [facility] [address] [place] [address] Home Care Provider Orthopedics 03/20/19 Taz Howard MD [address] [facility] [address] [place] [address] Referring Orthopedics 03/20/19 Eliz Bingham MD [address] [facility] [address] [place] [address] General Surgery 07/04/22 Ney Hart MD [address] [address] Gastroenterology 07/04/22 Mino Rosales LISW [address] [place] [address] Senior Php Developer Hematology/Oncology 01/08/23 Tatianna Crook, [facility] [address] [place], [place] [address] Pharmacist Pharmacy 07/18/23 Cathy Burr APRN.FLOORING MACHINE FEEDER [address] [place], [place] [address] Hardener Helper Internal Medicine 03/16/24 Lisbet Pizano APRN.PLATEN GRINDER [address] [place] [address] Hardener Helper Internal Medicine 06/30/24 Quality Control Associate Relationship Specialty Start Date End Date Jacinta Rivas MD [address] [place] [address] PCP - General Internal Medicine 02/03/19 Dena Lechuga, FE Specialty Public Address Systems Mechanic Oncology 04/24/17 Jesus Carter MD [address] [facility] [place] [address] Physician Radiation Oncology 04/24/17 Taz Hwoard MD [address] [address] Home Care Provider Orthopedics 03/20/19 Taz Howard MD [address] [address] Referring Orthopedics 03/20/19 Eliz Bingham MD [address] [address] General Surgery 07/04/22 Ney Hart MD [address] [facility] [address] [address] Gastroenterology 07/04/22 Mino Rosales LISW [address] [place] [address] Senior Php Developer Hematology/Oncology 01/08/23 Tatianna Crook, [facility] [address] [place] [address] Pharmacist Pharmacy 07/18/23 Cathy Burr APRN.FLOORING MACHINE FEEDER [address] [place], [place] [address] Hardener Helper Internal Medicine 03/16/24 Lisbet Pizano APRN.PLATEN GRINDER [address] [place] [address] [facility] Internal Medicine 03/16/24 06/26/24 Lisbet Pizano APRN.PLATEN GRINDER [address] [place] [address] [facility] Internal Medicine 06/30/24 Quality Control Associate Relationship Specialty Start Date End Date Jacinta Rivas MD [address] [place] [address] PCP - General Internal Medicine 02/03/19 Dena Lechuga, FE Specialty Public Address Systems Mechanic Oncology 04/24/17 Jesus Carter MD [address] [place] [address] Physician Radiation Oncology 04/24/17 Taz Howard MD [address] [address] Home Care Provider Orthopedics 03/20/19 Taz Howard MD [address] [address] Referring Orthopedics 03/20/19 Eliz Bingham MD [address] [address] General Surgery 07/04/22 Ney Hart MD [address] [address] Gastroenterology 07/04/22 Mino Rosales LISW [address] [place] [address] Senior Php Developer Hematology/Oncology 01/08/23 [facility] [address] [place] [address] Pharmacist Pharmacy 07/18/23 Cathy Burr APRN.FLOORING MACHINE FEEDER [address] [place] [address] Hardener Helper Internal Medicine 03/16/24 Lisbet Pizano HULLER OPERATOR.PLATEN GRINDER [address] [place] [address] Hardener Helper Internal Medicine 06/30/24 Quality Control Associate Relationship Specialty Start Date End Date Jacinta Rivas MD [address] [place] [address] PCP - General Internal Medicine 02/03/19 Dena Lechuga, RN Specialty Public Address Systems Mechanic Oncology 04/24/17 Jesus Carter MD [address] [place] [address] Physician Radiation Oncology 04/24/17 Taz Howard MD [address] [address] Home Care Provider Orthopedics 03/20/19 Taz Howard MD [address] [address] Referring Orthopedics 03/20/19 Eliz Bingham MD [address] [address] General Surgery 07/04/22 Ney Hart MD [address] [address] Gastroenterology 07/04/22 Mino Rosales LISW [address] [place] [address] Senior Php Developer Hematology/Oncology 01/08/23 Tatianna Crook [facility] [address] [place] [address] Pharmacist Pharmacy 07/18/23 Cathy Burr APRN.FLOORING MACHINE FEEDER [address] [place] [address] Hardener Helper Internal Medicine 03/16/24 Lisbet Pizano HULLER OPERATOR.PLATEN GRINDER [address] [place] [address] Hardener Helper Internal Medicine 06/30/24 Quality Control Associate Relationship Specialty Start Date End Date Jacinta Rivas MD [address] [place] [address] PCP - General Internal Medicine 02/03/19 Dena Lechuga, RN Specialty Public Address Systems Mechanic Oncology 04/24/17 Jesus Carter MD [address] [facility] [place] [address] Physician Radiation Oncology 04/24/17 Taz Howard MD [address] [address] Home Care Provider Orthopedics 03/20/19 Taz Howard MD [address] [facility] [address] [place] [address] Referring Orthopedics 03/20/19 Eliz Bingham MD [address] [facility] [address] [place] [address] General Surgery 07/04/22 Ney Hart MD [address] [facility] [address] [address] Gastroenterology 07/04/22 Mino Rosales LISW [address] [place] [address] Senior Php Developer Hematology/Oncology 01/08/23 Tatianna Crook, [facility] [address] [place] [address] Pharmacist Pharmacy 07/18/23 Cathy Burr, FELICIA.FLOORING MACHINE FEEDER [address] [place] [address] Hardener Helper Internal Medicine 03/16/24 Lisbet Pizano, HULLER OPERATOR.PLATEN GRINDER [address] [place] [address] Hardener Helper Internal Medicine 06/30/24 Quality Control Associate Relationship Specialty Start Date End Date Jacinta Rivas MD [address] [place] [address] PCP - General Internal Medicine 02/03/19 Dena Lechuga, FE Specialty Public Address Systems Mechanic Oncology 04/24/17 Jesus Carter MD [address] [place] [place] [address] Physician Radiation Oncology 04/24/17 Taz Howard MD [address] [facility] [address] [place] [address] Home Care Provider Orthopedics 03/20/19 Taz Howard MD [address] [facility] [address] [place] [address] Referring Orthopedics 03/20/19 Eliz Bingham MD [address] [address] General Surgery 07/04/22 Ney Hart MD [address] [place] [address] [address] Gastroenterology 07/04/22 Mino Rosales LISW [address] [place] [address] Senior Php Developer Hematology/Oncology 01/08/23 Tatianna Crook [facility] [address]40 [facility] [place] [address] Pharmacist Pharmacy 07/18/23 Cathy Burr APRN.FLOORING MACHINE FEEDER [address] [place] [address] Hardener Helper Internal Medicine 03/16/24 Lisbet Pizano APRN.PLATEN GRINDER [address] [place] [address] Hardener Helper Internal Medicine 03/16/24 06/26/24 Lisbet Pizano APRN.PLATEN GRINDER [address] [place] [address] Hardener Helper Internal Medicine 06/30/24 Quality Control Associate Relationship Specialty Start Date End Date Jacinta Rivas MD [address] [place] [address] PCP - General Internal Medicine 02/03/19 Dena Lechuga, FE Specialty Public Address Systems Mechanic Oncology 04/24/17 Jesus Carter MD [address] [place] [address] Physician Radiation Oncology 04/24/17 Taz Howard MD [address] [address] Home Care Provider Orthopedics 03/20/19 Taz Howard MD [address] [address] Referring Orthopedics 03/20/19 Eliz Bingham MD [address] [address] General Surgery 07/04/22 Ney Hart MD [address] [address] Gastroenterology 07/04/22 Mino Rosales LISW [address] [place] [address] Senior Php Developer Hematology/Oncology 01/08/23 Tatianna Crook, [facility] [address] [place] [address] Pharmacist Pharmacy 07/18/23 Lisbet Pizano APRN.PLATEN GRINDER [address] [place] [address] Hardener Helper Internal Medicine 06/30/24 Cathy Burr APRN.FLOORING MACHINE FEEDER [address] [place] [address] Hardener Helper Internal Medicine 08/26/24 Quality Control Associate Relationship Specialty Start Date End Date Jacinta Rivas MD [address] [place] [address] PCP - General Internal Medicine 02/03/19 Dena Lechuga, FE Specialty Public Address Systems Mechanic Oncology 04/24/17 Jesus Carter MD [address] [place] [address] Physician Radiation Oncology 04/24/17 Taz Howard MD [address] [address] Home Care Provider Orthopedics 03/20/19 Taz Howard MD [address] [address] Referring Orthopedics 03/20/19 Eliz Bingham MD [address] [address] General Surgery 07/04/22 Ney Hart MD [address] [address] [address] Gastroenterology 07/04/22 Mino Rosales LISW [address] [place] [address] Senior Php Developer Hematology/Oncology 01/08/23 Tatianna Crook, [facility] [address] [place], [place] [address] Pharmacist Pharmacy 07/18/23 Lisbet Pizano, HULLER OPERATOR.PLATEN GRINDER [address] [place] [address] Hardener Helper Internal Medicine 06/30/24 Cathy Burr, 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 [address] [place] [address] Hardener Helper Internal Medicine 08/26/24 Quality Control Associate Relationship Specialty Start Date End Date Jacinta Rivas MD [address] [place], [place] [address] PCP - General Internal Medicine 02/03/19 Dena Lechuga RN Specialty Public Address Systems Mechanic Oncology 04/24/17 Jesus Carter MD [address] [place], [place] [address] Physician Radiation Oncology 04/24/17 Taz Howard MD [address] [address] Home Care Provider Orthopedics 03/20/19 Taz Howard MD [address] [address] Referring Orthopedics 03/20/19 Eliz Bingham MD [address] [address] General Surgery 07/04/22 Ney Hart MD [address] [facility] [address] [place] [address] Gastroenterology 07/04/22 Mino Rosales LISW [address] [place] [address] Senior Php Developer Hematology/Oncology 01/08/23 Cl Crookietta, [facility]ly [facility] [address] [facility] [place] [address] Pharmacist Pharmacy 07/18/23 Lisbet Pizano, HULLER OPERATOR.PLATEN GRINDER [address] [facility] [place] [place] [address] Hardener Helper Internal Medicine 06/30/24 Cathy Burr APRN.FLOORING MACHINE FEEDER [address] [facility] [place] [address] Hardener Helper Internal Medicine 08/26/24 Quality Control Associate Relationship Specialty Start Date End Date Jacinta Rivas MD [address] [facility] [place] [address] PCP - General Internal Medicine 02/03/19 Dena Lechuga, RN Specialty Public Address Systems Mechanic Oncology 04/24/17 Jesus Carter MD [address] [facility] [place] [address] Physician Radiation Oncology 04/24/17 Taz Howard MD [address] [address] Home Care Provider Orthopedics 03/20/19 Taz Howard MD [address] [address] Referring Orthopedics 03/20/19 Eliz Bingham MD [address] [facility] [address] [place] [address] General Surgery 07/04/22 Ney Hart MD [address] [facility] [address] [address] Gastroenterology 07/04/22 Mino Rosales LISW [address] [place] [address] Senior Php Developer Hematology/Oncology 01/08/23 SbeccaTatianna poon, Formerly [facility] [address] [place] [address] Pharmacist Pharmacy 07/18/23 Lisbet Pizano, HULLER OPERATOR.PLATEN GRINDER [address] [place] [address] Hardener Helper Internal Medicine 06/30/24 Cathy Burr, 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 [address] [place] [address] Hardener Helper Internal Medicine 08/26/24 Quality Control Associate Relationship Specialty Start Date End Date Jacinta Rivas MD [address] [place] [address] PCP - General Internal Medicine 02/03/19 Dena Lechuga, RN Specialty Public Address Systems Mechanic Oncology 04/24/17 Jesus Carter MD [address] [facility] [place] [address] Physician Radiation Oncology 04/24/17 Taz Howard MD [address] [address] Home Care Provider Orthopedics 03/20/19 Taz Howard MD [address] [facility] [address] [place] [address] Referring Orthopedics 03/20/19 Eliz Bingham MD [address] [facility] [address] [place] [address] General Surgery 07/04/22 Ney Hart MD [address] [facility] 206 [place] [address] Gastroenterology 07/04/22 Mino Rosales LISW 721 [place] [address] Senior Php Developer Hematology/Oncology 01/08/23 [facility] [address] [place] [address] Pharmacist Pharmacy 07/18/23 Lisbet Pizano HULLER OPERATOR.PLATEN GRINDER [address] [place] [address] Hardener Helper Internal Medicine 06/30/24 Cathy Burr APRN.FLOORING MACHINE FEEDER [address] [place] [address] Hardener Helper Internal Medicine 08/26/24 Quality Control Associate Relationship Specialty Start Date End Date Jacinta Rivas MD [address] [place] [address] PCP - General Internal Medicine 02/03/19 Dena Lechuga, RN Specialty Public Address Systems Mechanic Oncology 04/24/17 Jesus Carter MD [address] [facility] [place] [address] Physician Radiation Oncology 04/24/17 Taz Howard MD [address] [address] Home Care Provider Orthopedics 03/20/19 Taz Howard MD [address] [address] Referring Orthopedics 03/20/19 Eliz Bingham MD [address] [address] General Surgery 07/04/22 Ney Hart MD [address] [facility] [address] [address] Gastroenterology 07/04/22 Mino Rosales LISW [address] [place] [address] Senior Php Developer Hematology/Oncology 01/08/23 Tatianna Crook [facility] [address] [place] [address] Pharmacist Pharmacy 07/18/23 Lisbet Pizano, HULLER OPERATOR.PLATEN GRINDER [address] [place] [address] Hardener Helper Internal Medicine 06/30/24 Cathy Burr, 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 [address] [place] [address] Hardener Helper Internal Medicine 08/26/24 Quality Control Associate Relationship Specialty Start Date End Date Jacinta Rivas MD [address] [place] [address] PCP - General Internal Medicine 02/03/19 Dena Lechuga, RN Specialty Public Address Systems Mechanic Oncology 04/24/17 Jesus Carter MD [address] [place] [address] Physician Radiation Oncology 04/24/17 Taz Howard MD [address] [address] Home Care Provider Orthopedics 03/20/19 Taz Howard MD [address] [address] Referring Orthopedics 03/20/19 Eliz Bingham MD [address] [address] General Surgery 07/04/22 Ney Hart MD [address] [facility] [address] [address] Gastroenterology 07/04/22 Mino Rosales LISW [address] [place] [address] Senior Php Developer Hematology/Oncology 01/08/23 Tatianna Crook [facility] [address] [place] [address] Pharmacist Pharmacy 07/18/23 Lisbet Pizano APRN.PLATEN GRINDER [address] [place] [address] Hardener Helper Internal Medicine 06/30/24 Cathy Burr APRN.FLOORING MACHINE FEEDER [address] [place] [address] Hardener Helper Internal Medicine 08/26/24 Quality Control Associate Relationship Specialty Start Date End Date Jacinta Rivas MD [address] [place] [address] PCP - General Internal Medicine 02/03/19 Dena Lechuga, RN Specialty Public Address Systems Mechanic Oncology 04/24/17 Jesus Carter MD [address] [place] [address] Physician Radiation Oncology 04/24/17 Taz Howard MD [address] [address] Home Care Provider Orthopedics 03/20/19 Taz Howard MD [address] [address] Referring Orthopedics 03/20/19 Eliz Bingham MD [address] [address] General Surgery 07/04/22 Ney Hart MD [address] [address] Gastroenterology 07/04/22 Mino Rosales LISW [address] [place] [address] Senior Php Developer Hematology/Oncology 01/08/23 Tatianna Crook [facility] [address] [place] [address] Pharmacist Pharmacy 07/18/23 Cathy Burr APRN.FLOORING MACHINE FEEDER [address] [place], [place] [address] Hardener Helper Internal Medicine 03/16/24 08/25/24 Lisbet Pizano APRN.PLATEN GRINDER [address] [place] [address] Hardener Helper Internal Medicine 06/30/24 Cathy Burr APRN.FLOORING MACHINE FEEDER [address] [place] [address] Hardener Helper Internal Medicine 08/26/24 Quality Control Associate Relationship Specialty Start Date End Date Jacinta Rivas MD [address] [place] [address] PCP - General Internal Medicine 02/03/19 Dena Lechuga RN Specialty Public Address Systems Mechanic Oncology 04/24/17 Jesus Carter MD [address] [place] [address] Physician Radiation Oncology 04/24/17 Taz Howard MD [address] [address] Home Care Provider Orthopedics 03/20/19 Taz Howard MD [address] [address] Referring Orthopedics 03/20/19 Eliz Bingham MD [address] [address] General Surgery 07/04/22 Ney Hart MD [address] [place] [address] [address] Gastroenterology 07/04/22 Mino Rosales LISW [address]21 [place] [address] Senior Php Developer Hematology/Oncology 01/08/23 Tatianna Crook, [facility] [address] [place] [address] Pharmacist Pharmacy 07/18/23 Lisbet Pizano HULLER OPERATOR.PLATEN GRINDER [address] [place] [address] Hardener Helper Internal Medicine 06/30/24 Cathy Burr APRN.FLOORING MACHINE FEEDER [address] [place] [address] Hardener Helper Internal Medicine 08/26/24 Quality Control Associate Relationship Specialty Start Date End Date Jacinta Rivas MD [address] [place] [address] PCP - General Internal Medicine 02/03/19 Dena Lechuga, FE Specialty Public Address Systems Mechanic Oncology 04/24/17 Jesus Carter MD [address] [place] [address] Physician Radiation Oncology 04/24/17 Taz Howard MD [address] [address] Home Care Provider Orthopedics 03/20/19 Taz Howard MD [address] [address] Referring Orthopedics 03/20/19 Eliz Bingham MD [address] [address] General Surgery 07/04/22 Ney Hart MD [address] [place] [facility] 206 [place] [address] Gastroenterology 07/04/22 Mino Rosales LISW [address] [place] [address] Senior Php Developer Hematology/Oncology 01/08/23 [facility] 1740 [place] [address] Pharmacist Pharmacy 07/18/23 Lisbet Pizano APRN.PLATEN GRINDER [address] [place] [address] Hardener Helper Internal Medicine 06/30/24 Cathy Burr APRN.FLOORING MACHINE FEEDER [address] [facility] [place] [address] Hardener Helper Internal Medicine 08/26/24 Quality Control Associate Relationship Specialty Start Date End Date Jacinta Rivas MD [address] [place] [address] PCP - General Internal Medicine 02/03/19 Dena Lechuga, FE Specialty Public Address Systems Mechanic Oncology 04/24/17 Jesus Carter MD [address] [place] [address] Physician Radiation Oncology 04/24/17 Taz Howard MD [address] [place] [address] [address] [place] [address] Home Care Provider Orthopedics 03/20/19 Taz Howard MD [address] [facility] [address] [place] [address] Referring Orthopedics 03/20/19 Eliz Bingham MD [address] [facility] [address] [place] [address] General Surgery 07/04/22 Ney Hart MD [address] [facility] 206 [place] [address] Gastroenterology 07/04/22 Mino Rosales LISW 721 [place] [address] Senior Php Developer Hematology/Oncology 01/08/23 Tatianna Crook [facility] 1740 [facility] [place] [address] Pharmacist Pharmacy 07/18/23 Lisbet Pizano, HULLER OPERATOR.PLATEN GRINDER [address] [place] [address] Hardener Helper Internal Medicine 06/30/24 Cathy Burr, FELICIA.FLOORING MACHINE FEEDER [address] [place] [address] Hardener Helper Internal Medicine 08/26/24 Quality Control Associate Relationship Specialty Start Date End Date Jacinta Rivas MD [address] [place] [address] PCP - General Internal Medicine 02/03/19 Dena Lechuga, FE Specialty Public Address Systems Mechanic Oncology 04/24/17 Jesus Carter MD [address] [facility] [address] Physician Radiation Oncology 04/24/17 Taz Howard MD [address] [facility] [address] [place] [address] Home Care Provider Orthopedics 03/20/19 Taz Howard MD [address] [facility] [address] [place] [address] Referring Orthopedics 03/20/19 Eliz Bingham MD [address] [facility] [address] [place] [address] General Surgery 07/04/22 Ney Hart MD [address] [address] Gastroenterology 07/04/22 Mino Rosales LISW [address]21 [place] [address] Senior Php Developer Hematology/Oncology 01/08/23 Tatianna Crook, [facility] 1740 [facility] [place] [address] Pharmacist Pharmacy 07/18/23 Lisbet Pizano, HULLER OPERATOR.PLATEN GRINDER [address] [place] [address] Hardener Helper Internal Medicine 06/30/24 Cathy Burr, 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 [address] [place] [address] Hardener Helper Internal Medicine 08/26/24 Quality Control Associate Relationship Specialty Start Date End Date Jacinta Rivas MD [address] [place] [address] PCP - General Internal Medicine 02/03/19 Dena Lechuga, FE Specialty Public Address Systems Mechanic Oncology 04/24/17 Jesus Carter MD [address] [place] [address] Physician Radiation Oncology 04/24/17 Taz Howard MD [address] [address] Home Care Provider Orthopedics 03/20/19 Taz Howard MD [address] [address] Referring Orthopedics 03/20/19 Eliz Bingham MD [address] [address] General Surgery 07/04/22 Ney Hart MD [address] [address] [address] Gastroenterology 07/04/22 Mino Rosales LISW [address] [place] [address] Senior Php Developer Hematology/Oncology 01/08/23 Tatianna Crook [facility] [address]40 [facility] [place] [address] Pharmacist Pharmacy 07/18/23 Lisbet Pizano APRN.PLATEN GRINDER [address] [place] [address] Hardener Helper Internal Medicine 06/30/24 Cathy Burr APRN.FLOORING MACHINE FEEDER [address] [place] [address] Hardener Helper Internal Medicine 08/26/24 Quality Control Associate Relationship Specialty Start Date End Date Jacinta Rivas MD [address] [place] [address] PCP - General Internal Medicine 02/03/19 Dena Lechuga, RN Specialty Public Address Systems Mechanic Oncology 04/24/17 Jesus Carter MD [address] [place] [address] Physician Radiation Oncology 04/24/17 Taz Howard MD [address] [facility] [address] [place] [address] Home Care Provider Orthopedics 03/20/19 Taz Howard MD [address] [facility] [address] [place] [address] Referring Orthopedics 03/20/19 Eliz Bingham MD [address] [facility] [address] [place] [address] General Surgery 07/04/22 Ney Hart MD [address] [address] Gastroenterology 07/04/22 Mino Rosales LISW [address]21 [place] [address] Senior Php Developer Hematology/Oncology 01/08/23 SbecTatianna hankins, [facility] [address] [place], [place] [id number] Pharmacist Pharmacy 07/18/23 Lisbet Pizano APRN.PLATEN GRINDER [address] [place], [place] [address] Hardener Helper Internal Medicine 06/30/24 Cathy Burr, FELICIA.FLOORING MACHINE FEEDER [address] [place] [address] Hardener Helper Internal Medicine 08/26/24 Quality Control Associate Relationship Specialty Start Date End Date Jacinta Rivas MD [address] [place] [address] PCP - General Internal Medicine 02/03/19 Dena Lechuga, FE Specialty Public Address Systems Mechanic Oncology 04/24/17 Jesus Carter MD [address] [facility] [place], [place] [address] Physician Radiation Oncology 04/24/17 Taz Howard MD [address] [address] Home Care Provider Orthopedics 03/20/19 Taz Howard MD [address] [address] Referring Orthopedics 03/20/19 Eliz Bingham MD [address] [address] General Surgery 07/04/22 Ney Hart MD [address] [facility] [address] [address] Gastroenterology 07/04/22 Mino Rosales LISW [address] [place] [address] Senior Php Developer Hematology/Oncology 01/08/23 Tatianna Crook, [facility] [address] [place] [address] Pharmacist Pharmacy 07/18/23 Lisbet Pizano APRN.PLATEN GRINDER [address] [place], [place] [address] Hardener Helper Internal Medicine 06/30/24 Cathy Burr APRN.FLOORING MACHINE FEEDER [address] [place], [place] [address] Hardener Helper Internal Medicine 08/26/24 Quality Control Associate Relationship Specialty Start Date End Date Jacinta Rivas MD [address] [place], [place] [id number] PCP - General Internal Medicine 02/03/19 Dena Lechuga, RN Specialty Public Address Systems Mechanic Oncology 04/24/17 Jesus Carter MD [address] [place] [address] Physician Radiation Oncology 04/24/17 Taz Howard MD [address] [address] Home Care Provider Orthopedics 03/20/19 Taz Howard MD [address] [address] Referring Orthopedics 03/20/19 Eliz Bingham MD [address] [address] General Surgery 07/04/22 Ney Hart MD [address] [place] [address] [address] Gastroenterology 07/04/22 Mino Rosales LISW [address] [place] [address] Senior Php Developer Hematology/Oncology 01/08/23 Tatianna Crook [facility] [address] [place] [address] Pharmacist Pharmacy 07/18/23 Lisbet Pizano HULLER OPERATOR.PLATEN GRINDER [address] [place] [address] Hardener Helper Internal Medicine 06/30/24 Cathy Burr APRN.FLOORING MACHINE FEEDER [address] [place] [address] Hardener Helper Internal Medicine 08/26/24 Quality Control Associate Relationship Specialty Start Date End Date Jacinta Rivas MD [address] [place] [address] PCP - General Internal Medicine 02/03/19 Dena Lechuga, FE Specialty Public Address Systems Mechanic Oncology 04/24/17 Jesus Carter MD [address] [place] [address] Physician Radiation Oncology 04/24/17 Taz Howard MD [address] [address] Home Care Provider Orthopedics 03/20/19 Taz Howard MD [address] [address] Referring Orthopedics 03/20/19 Eliz Bingham MD [address] [address] General Surgery 07/04/22 Ney Hart MD [address] [place] [address] [address] Gastroenterology 07/04/22 Mino Rosales LISW [address] [place] [address] Senior Php Developer Hematology/Oncology 01/08/23 Tatianna Crook, [facility] [address]40 [facility] [place] [address] Pharmacist Pharmacy 07/18/23 Lisbet Pizano HULLER OPERATOR.PLATEN GRINDER [address] [facility] [place] [address] Hardener Helper Internal Medicine 06/30/24 Cathy Burr APRN.FLOORING MACHINE FEEDER [address] [place] [address] Hardener Helper Internal Medicine 08/26/24 Quality Control Associate Relationship Specialty Start Date End Date Jacinta Rivas MD [address] [place] [address] PCP - General Internal Medicine 02/03/19 Dena Lechuga, RN Specialty Public Address Systems Mechanic Oncology 04/24/17 Jesus Carter MD [address] [place] [address] Physician Radiation Oncology 04/24/17 Taz Howard MD [address] [address] Home Care Provider Orthopedics 03/20/19 Taz Howard MD [address] [address] Referring Orthopedics 03/20/19 Eliz Bingham MD [address] [address] General Surgery 07/04/22 Ney Hart MD [address] [address] Gastroenterology 07/04/22 Mino Rosales LISW [address] [place] [address] Senior Php Developer Hematology/Oncology 01/08/23 [facility] [address] [place] [address] Pharmacist Pharmacy 07/18/23 Lisbet Pizano, HULLER OPERATOR.PLATEN GRINDER [address] [place] [address] Hardener Helper Internal Medicine 06/30/24 Cathy Burr, 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 [address] [place] [address] Hardener Helper Internal Medicine 08/26/24 Quality Control Associate Relationship Specialty Start Date End Date Jacinta Rivas MD [address] [place] [address] PCP - General Internal Medicine 02/03/19 Dena Lechuga, RN Specialty Public Address Systems Mechanic Oncology 04/24/17 Jesus Carter MD [address] [place] [address] Physician Radiation Oncology 04/24/17 Taz Howard MD [address] [address] Home Care Provider Orthopedics 03/20/19 Taz Howard MD [address] [address] Referring Orthopedics 03/20/19 Eliz Bingham MD [address] [address] General Surgery 07/04/22 Ney Hart MD [address] [address] Gastroenterology 07/04/22 Mino Rosales LISW [address] [place] [address] Senior Php Developer Hematology/Oncology 01/08/23 Tatianna Crook [facility] [address] [place] [address] Pharmacist Pharmacy 07/18/23 Lisbet Pizano APRN.PLATEN GRINDER [address] [place] [address] Hardener Helper Internal Medicine 06/30/24 Cathy Burr APRN.FLOORING MACHINE FEEDER [address] [place] [address] Hardener Helper Internal Medicine 08/26/24 Quality Control Associate Relationship Specialty Start Date End Date Jacinta Rivas MD [address] [place] [address] PCP - General Internal Medicine 02/03/19 Dena Lechuga, FE Specialty Public Address Systems Mechanic Oncology 04/24/17 Jesus Carter MD [address] [place] [address] Physician Radiation Oncology 04/24/17 Taz Howard MD [address] [address] Home Care Provider Orthopedics 03/20/19 Taz Howard MD [address] [address] Referring Orthopedics 03/20/19 Eliz Bingham MD [address] [address] General Surgery 07/04/22 Ney Hart MD [address] [place] [address] [address] Gastroenterology 07/04/22 Mino Rosales LISW [address] [place] [address] Senior Php Developer Hematology/Oncology 01/08/23 PaneccaTatianna poon, [facility] [address] [place] [address] Pharmacist Pharmacy 07/18/23 Lisbet Pizano, HULLER OPERATOR.PLATEN GRINDER [address] [place] [address] Hardener Helper Internal Medicine 06/30/24 Cathy Burr APRN.FLOORING MACHINE FEEDER [address] [place] [address] Hardener Helper Internal Medicine 08/26/24 Quality Control Associate Relationship Specialty Start Date End Date Jacinta Rivas MD [address] [place] [address] PCP - General Internal Medicine 02/03/19 Dena Lechuga, RN Specialty Public Address Systems Mechanic Oncology 04/24/17 Jesus Carter MD [address] [place] [address] Physician Radiation Oncology 04/24/17 Taz Howard MD [address] [facility] [address] [place] [address] Home Care Provider Orthopedics 03/20/19 Taz Howard MD [address] [address] Referring Orthopedics 03/20/19 Eliz Bingham MD [address] [address] General Surgery 07/04/22 Ney Hart MD [address] [address] Gastroenterology 07/04/22 Mino Rosales LISW [address]21 [place] [address] Senior Php Developer Hematology/Oncology 01/08/23 Tatianna Crook, [facility] [address] [place] [address] Pharmacist Pharmacy 07/18/23 Lisbet Pizano APRN.PLATEN GRINDER [address] [place] [address] Hardener Helper Internal Medicine 06/30/24 Cathy Burr APRN.FLOORING MACHINE FEEDER [address] [place] [address] Hardener Helper Internal Medicine 08/26/24 Quality Control Associate Relationship Specialty Start Date End Date Jacinta Rivas MD [address] [facility] [place] [address] PCP - General Internal Medicine 02/03/19 Dena Lechuga, FE Specialty Public Address Systems Mechanic Oncology 04/24/17 Jesus Carter MD [address] [place] [address] Physician Radiation Oncology 04/24/17 Tza Howard MD [address] [address] Home Care Provider Orthopedics 03/20/19 Taz Howard MD [address] [address] Referring Orthopedics 03/20/19 Eliz Bingham MD [address] [address] General Surgery 07/04/22 Ney Hart MD [address] [facility] [address] [place] [address] Gastroenterology 07/04/22 Mino Rosales LISW [address] [place] [address] Senior Php Developer Hematology/Oncology 01/08/23 Tatianna Crook, [facility] [address]40 [facility] [place] [address] Pharmacist Pharmacy 07/18/23 Lisbet Pizano APRN.PLATEN GRINDER [address] [place] [address] Hardener Helper Internal Medicine 06/30/24 Cathy Burr, FELICIA.FLOORING MACHINE FEEDER [address] [place] [address] Hardener Helper Internal Medicine 08/26/24 Quality Control Associate Relationship Specialty Start Date End Date Jacinta Rivas MD [address] [place] [address] PCP - General Internal Medicine 02/03/19 Dena Lechuga, FE Specialty Public Address Systems Mechanic Oncology 04/24/17 Jesus Carter MD [address] [place] [address] Physician Radiation Oncology 04/24/17 Taz Howard MD [address] [address] Home Care Provider Orthopedics 03/20/19 Taz Howard MD [address] [address] Referring Orthopedics 03/20/19 Eliz Bingham MD [address] [address] General Surgery 07/04/22 Ney Hart MD [address] [place] [address] [address] Gastroenterology 07/04/22 Mino Rosales LISW [address] [place] [address] Senior Php Developer Hematology/Oncology 01/08/23 Tatianna Crook [facility] [address] [place], [place] [address] Pharmacist Pharmacy 07/18/23 Lisbet Pizano HULLER OPERATOR.PLATEN GRINDER [address] [place], [place] [address]30[address] Hardener Helper Internal Medicine 06/30/24 Cathy Burr APRN.FLOORING MACHINE FEEDER [address] [place], [place] [address] Hardener Helper Internal Medicine 08/26/24 Quality Control Associate Relationship Specialty Start Date End Date Jacinta Rivas MD [address] [place], [place] [address]291 PCP - General Internal Medicine 02/03/19 Dena Lechuga, FE Specialty Public Address Systems Mechanic Oncology 04/24/17 Jesus Carter MD [address] [place], [place] 27[address]21 Physician Radiation Oncology 04/24/17 Taz Howard MD [address] [address] Home Care Provider Orthopedics 03/20/19 Taz Howard MD [address] [address] Referring Orthopedics 03/20/19 Eliz Bingham MD [address] [address] General Surgery 07/04/22 Ney Hart MD [address] [facility] [address] [place] [address] Gastroenterology 07/04/22 Mino Rosales LISW [address] [place] [address] Senior Php Developer Hematology/Oncology 01/08/23 Tatianna Crook [facility] [address] [facility] [place] [address] Pharmacist Pharmacy 07/18/23 Lisbet Pizano, HULLER OPERATOR.PLATEN GRINDER [address] [place] [address] Hardener Helper Internal Medicine 06/30/24 Cathy Burr, 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 [address] [place] [address] Hardener Helper Internal Medicine 08/26/24 Team Status: Active Member Role/Relationship Status Dates Dr. Jacinta Rivas MD Primary Care Provider Active Team Status: Inactive Member Role/Relationship Status Dates Dr. Jacinta Rivas MD Primary Care Provider Active Start: August 03, 2024 End: August 03, 2024 Dr. Andrea Peace MD Attending Provider Active S tart: August 03, 2024 End: August 03, 2024 Dr. Andrea Peace MD Referring Provider Active S tart: August 03, 2024 End: August 03, 2024 Team Status: Inactive Member Role/Relationship Status Dates Dr. Jacinta Rivas MD Primary Care Provider Active Start: November 02, 2024 End: November 02, 2024 Dr. Jacinta Rivas MD Referring Provider Active Start: November 02, 2024 End: November 02, 2024 RUSSELL Lr Attending Provider Active St art: November 02, 2024 End: November 02, 2024 Quality Control Associate Relationship Specialty Start Date End Date Jacinta Rivas MD [address] [place] [address] PCP - General Internal Medicine 02/03/19 Dena Lechuga, RN Specialty Public Address Systems Mechanic Oncology 04/24/17 Jesus Carter MD [address] [facility] [place] [address] Physician Radiation Oncology 04/24/17 Taz Howard MD [address] [address] Home Care Provider Orthopedics 03/20/19 Taz Howard MD [address] [address] Referring Orthopedics 03/20/19 Eliz Bingham MD [address] [address] General Surgery 07/04/22 Ney Hart MD [address] [address] Gastroenterology 07/04/22 Mino Rosales LISW [address] [place] [address] Senior Php Developer Hematology/Oncology 01/08/23 Tatianna Crook [facility] [address] [place] [address] Pharmacist Pharmacy 07/18/23 Lisbet Pizano APRN.PLATEN GRINDER [address] [place] [address] Hardener Helper Internal Medicine 06/30/24 Cathy Burr APRN.FLOORING MACHINE FEEDER [address] [place] [id number] Hardener Helper Internal Medicine 08/26/24 Reason for Visit (unrecogniz ed section and content) Reason Comments Physical Therapy Specialty Diagnoses / Procedures Referred By Parmjit cabrera Referred To Contact [facility] Diagnoses History of breast cancer S/P breast reconstruction Seroma of breast Procedures CONSULT TO BREAST REHAB PROGRAM PHYSICAL THERAPY EVALUATION HIGH COMPLEX 45 MINS OCCUPATIONAL THERAPY EVAL HIGH COMPLEX 60 MINS Micki Butler APRN.PLATEN GRINDER [address] [place] [address] Phone: tel: fax: [facility] [address] [place] [address] Referral ID Status Reason Start Date Expiration Date Visits Requested Visits Authorized [id number] Authorized PCP Requested Referral Auto-Generate d Referral 04/08/2024 04/07/2025 99 99 Reason Comments PT Progress Note Specialty Diagnoses / Procedures Referred By Parmjit cabrera Referred To Contact [facility] Diagnoses Malignant neoplasm of lower-outer quadrant of left breast of female, estrogen receptor positive (HCC) Lymphedema of left arm Procedures CONSULT TO LYMPHEDEMA THERAPY OFFICE/OUTPATIENT [facility] 60 MINUTES Serena Carrasco DO [address] [place] [address] [facility] [place] [address] [place] [address] Referral ID Status Reason Start Date Expiration Date Visits Requested Visits Authorized [id number] Authorized Auto-Generat ed Referral 04/13/2024 04/13/2025 99 99 Reason Comments Established Patient Reason Comments Non-Chemotherapy Treatment Specialty Diagnoses / Procedures Referred By Parmjit cabrera Referred To Contact Diagnoses Malignant neoplasm of left breast in female, estrogen receptor positive, unspecified site of breast (HCC) C50.912,Z17.0 (ICD-10-CM) - Malignant neoplasm of left breast in female, estrogen receptor positive, unspecified site of breast (HCC) Procedures INJECTION, ZOLEDRONIC ACID, 1 MG BONE MODIFYING AGENT: $ - Q6 MONTHS IF CRCL IS GREATER THAN 30 ML/MIN Serena Carrasco DO [address] [place] [address] [facility] [address] [place] [address] Referral ID Status Reason Start Date Expiration Date V isits Requested Visits Authorized [id number] Authorized 03/01/2020 08/03/2022 99 99 Reason Comments Nutrition Assessment Reason Comments Refill Request Reason Comments Covid19 Concern Reason Comments Follow Up Specialty Diagnoses / Procedures Referred By [facility] Referred To Contact Diagnoses Malignant neoplasm of left breast in female, estrogen receptor positive, unspecified site of breast (HCC) C50.912,Z17.0 (ICD-10-CM) - Malignant neoplasm of left breast in female, estrogen receptor positive, unspecified site of breast (HCC) Procedures INJECTION, ZOLEDRONIC ACID, 1 MG BONE MODIFYING AGENT: $ - Q6 MONTHS IF CRCL IS GREATER THAN 30 ML/MIN Serena Carrasco DO [address] [facility] [address] [facility] [address] [place] [address] Reason Comments UTI Frequency, burning x 5 days Reason Comments Results Reason Comments Wellness Reason Comments Patient Question Reason Comments Established Patient Hip Replacement Follow Up Pain Reason Comments Medication Request Reason Comments Appointment DR Bingham Reason Comments New Patient Specialty Diagnoses / Procedures Referred By [facility] Referred To Contact MR IMAGING Diagnoses Malignant neoplasm of overlapping sites of left breast in female, estrogen receptor positive (HCC) 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) Procedures MRI BRAIN WO/W IVCON MRI BRAIN BRAIN STEM W/O W/CONTRAST MATERIAL Serena Carrasco DO [address] [facility] [place] [address] Mr Imaging Referral ID Status Reason Start Date Expiration Date V isits Requested Visits Authorized [id number] Closed Auto-Generate d Referral 07/26/2022 08/25/2023 1 1 Reason Comments Established Patient regroup Reason Comments Bronchoscopy Scheduling Reason Comments Anesthesia Consult Reason Comments Appointment Reason Comments Results Post bronchoscopy no te Specialty Diagnoses / Procedures Referred By Contac t Referred To Contact MR IMAGING Diagnoses Malignant neoplasm of lower-outer quadrant of left breast of female, estrogen receptor positive (HCC) Procedures MRI BREAST WO/W IVCON BILATERAL MRI BREAST WITHOUT&WITH CONTRAST W/[place] [address] [place] [address] Mr Imaging Referral ID Status Reason Start Date Expiration Date V isits Requested Visits Authorized [id number] Closed Auto-Generate d Referral 08/01/2022 08/31/2023 1 1 Reason Comments Imm/Inj Specialty Diagnoses / Procedures [facility] Diagnoses Malignant neoplasm of lower-outer quadrant of left breast of female, estrogen receptor positive (HCC) 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 [address] [place] [address] Referral ID Status Reason Start Date Expiration Date V isits Requested Visits Authorized [id number] Authorized 08/03/2022 08/03/2023 16 16 Reason Onset Date Comments SPP Oral Oncology/hematology - Treatment Referra l 08/16/2022 Verzenio Reason Onset Date Comments Refill Request 08/17/2022 Reason Comments AVS 08/16/22 Question Reason Comments Results Mild increase in ser um Cr and BUN Specialty Diagnoses / Procedures [facility] To Contact Diagnoses Malignant neoplasm of lower-outer quadrant of left breast of female, estrogen receptor positive (HCC) 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) Procedures INJECTION, FULVESTRANT (TEVA) NOT THERAPEUTICALLY EQUIVALENT TO J9395, 25 MG Masci, Serena A, DO [address] [place] [address] [facility] [address] [place] [address] Reason Comments Results UA Reason Comments HYDRATION Reason Comments Results Future Appointment Reason Comments Care Coordination Follow up Note Reason Comments 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 Reason Comments Follow Up Changing from Verzen io to Kisqali Reason Onset Date Comments SPP Oral Oncology/hematology - Treatment Referra l 11/05/2022 Kisqali Insurance Inquiry 11/05/2022 See if PA is r equired Reason Onset Date Comments Refill Request 11/06/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 Education/Follow-up Reason Comments EKG Specialty Diagnoses / Procedures Referred By Contac t Referred To Contact [facility] Diagnoses Malignant neoplasm of lower-outer quadrant of left breast of female, estrogen receptor positive (HCC) 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) Procedures ECG COMPLETE ECG ROUTINE ECG W/LEAST 12 LDS W/I&R Serena Carrasco, DO [address] [place] [address] [facility] [place] [address] [place] [address] Referral ID Status Reason Start Date Expiration Date V isits Requested Visits Authorized [id number] Closed Auto-Generate d Referral 11/01/2022 11/01/2023 1 1 Specialty Diagnoses / Procedures Referred By Contac t Referred To [facility] Diagnoses 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) Procedures ECG COMPLETE ECG ROUTINE ECG W/LEAST 12 LDS W/I&R Serena Carrasco, DO [address] [place] [address] [facility] [place] [address] [place] [address] Referral ID Status Reason Start Date Expiration Date Visits Requested Visits Authorized [id number] Authorized Auto-Generat ed Referral 11/28/2022 11/28/2023 2 2 Referral ID Status Reason Start Date Expiration Date V isits Requested Visits Authorized [id number] Authorized 03/01/2020 04/07/2023 99 99 Reason Comments Social Work Services Reason Comments AVS 01/09 Reason Onset Date Comments Refill Request 01/18/2023 Reason Comments Radiology NM Reason Comments Consult Reason Comments Pain Specialty Diagnoses / Procedures Referred By Contac t Referred To Contact Diagnoses Malignant neoplasm of lower-outer quadrant of left breast of female, estrogen receptor positive (HCC) 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) Procedures INJECTION, FULVESTRANT (TEVA) NOT THERAPEUTICALLY EQUIVALENT TO J9395, 25 MG Serena Carrasco, DO [address] [facility] [place] [address] [facility] [address] [place] [address] Reason Comments 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 Appointment Reason Comments Research CTD CTD Reason Comments Care Coordination Follow Up Note Reason Onset Date Comments Refill Request 05/24/2023 Reason Comments Future Appointment Reason Comments Urinary Problem Possible uti, freque ncy x 1 week Reason Comments PT Eval Specialty Diagnoses / Procedures [facility] To [facility] Diagnoses Malignant neoplasm of lower-outer quadrant of left breast of female, estrogen receptor positive (HCC) 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) Lymphedema of left arm Procedures CONSULT TO LYMPHEDEMA THERAPY OFFICE/OUTPATIENT NEW HIGH MDM 60 MINUTES Serena Carrasco, DO [address] [place] [address] [facility] [place] [address] [place] [address] Referral ID Status Reason Start Date Expiration Date V isits Requested Visits Authorized [id number] Closed Auto-Generate d Referral 06/03/2023 06/02/2024 1 1 Reason Comments Diabetes Reason Comments Established Patient Specialty Diagnoses / Procedures [facility] Referred To Contact Radiology / RADIO PET CT [facility] Diagnoses Malignant neoplasm of lower-outer quadrant of left breast of female, estrogen receptor positive (HCC) [C50.512, Z17.0] Procedures INJECTION PET CT Serena Carrasco, DO [address] [facility] [place] [address] [facility] [address] [place] [address] Referral ID Status Reason Start Date Expiration Date Visits Re quested Visits Authorized [id number] Closed 08/12/2023 11/10/2023 1 1 Reason Comments ER F/U High BS readings and UTI Reason Comments Radiology NM Specialty Diagnoses / Procedures [facility] Referred To Contact [facility] Diagnoses Malignant neoplasm of lower-outer quadrant of left breast of female, estrogen receptor positive (HCC) 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) Procedures NM PET/CT SKULL-THIGH SUBSEQUENT PET IMAGING CT ATTENUATION SKULL BASE MID-THIGH Serena Carrasco, DO [address] [place] [address] [facility] [address] [place] [address] Referral ID Status Reason Start Date Expiration Date V isits Requested Visits Authorized [id number] Closed Auto-Generate d Referral 08/16/2023 09/14/2023 2 2 Reason Onset Date Comments Refill Request 09/10/2023 Reason Comments Neck Pain Radiating down to th e bicep and tricep, throbbing and pinching x 8 days Reason Comments Fever X 3 days, has chills , headache x 3 days, and cloudy urine x 1 month with frequency in the evenings, denies pain or hematuria, Reason Comments patient did follow up urine sample Reason Comments Established Patient Reason Onset Date Comments Refill Request 11/12/2023 Reason Comments Results Reason Comments Order for Glucometer Reason Onset Date Comments Refill Request 12/11/2023 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 Comments 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 X6 months Reason Onset Date Comments Refill Request 01/22/2024 Reason Comments Med Change Request Reason Comments type 2 diabetes Specialty Diagnoses / Procedures [facility]erred To Contact Endocrinology Diagnoses Type 2 diabetes mellitus with other specified complication, without long-term current use of insulin (HCC) Procedures CONSULT TO ENDOCRINOLOGY OFFICE/OUTPATIENT NEW HIGH MDM 60 MINUTES Serena Carrasco, DO [address] [facility] [place] [address] Referral ID Status Reason Start Date Expiration Date V isits Requested Visits Authorized [id number] Closed PCP Requested Referral 01/06/2024 01/05/2025 1 1 Specialty Diagnoses / Procedures Referred By Parmjit cabrera Referred To Contact MR IMAGING Diagnoses Malignant neoplasm of lower-outer quadrant of left breast of female, estrogen receptor positive (HCC) Procedures MRI BREAST WO/W IVCON BILATERAL MRI BREAST WITHOUT&WITH CONTRAST W/[place] [address] [place] [address] [place] [address] Referral ID Status Reason Start Date Expiration Date V isits Requested Visits Authorized [id number] Closed Auto-Generate d Referral 02/05/2024 03/05/2024 1 1 Reason Comments Consult Breast Reconstructio n Reason Comments PHOTOS TAKEN Reason Comments Radiology Mammogram Specialty Diagnoses / Procedures Referred By Parmjit cabrera Referred To Contact BR IMAGING Diagnoses Malignant neoplasm of lower-outer quadrant of left breast of female, estrogen receptor positive (HCC) Procedures SAMANTHA DIAGNOSTIC RIGHT DIAGNOSTIC MAMMOGRAPHY COMPUTER-[place] [address] [place] [address] [facility] [address] [place] [address] Referral ID Status Reason Start Date Expiration Date V isits Requested Visits Authorized [id number] Closed Auto-Generate d Referral 02/27/2024 03/28/2025 1 1 Specialty Diagnoses / Procedures Referred By Parmjit cabrera Referred To Contact [facility] Diagnoses Malignant neoplasm of overlapping sites of left breast in female, estrogen receptor positive (HCC) 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) Malignant neoplasm of lower-outer quadrant of left breast of female, estrogen receptor positive (HCC) Procedures NM PET/CT SKULL-THIGH SUBSEQUENT PET IMAGING CT ATTENUATION SKULL BASE MID-THIGH Serena Carrasco DO [address] [place] [address] [facility] [address] [place] [address] Referral ID Status Reason Start Date Expiration Date V isits Requested Visits Authorized [id number] Closed Auto-Generate d Referral 01/06/2024 02/04/2025 1 1 Reason Comments Schedule Surgery Specialty Diagnoses / Procedures Referred By Contac t Referred To Contact Diagnoses Malignant neoplasm of left breast in female, estrogen receptor positive, unspecified site of breast (HCC) Serena Carrasco, DO [address] [place] [address] [facility] [address] [address] Referral ID Status Reason Start Date Expiration Date V isits Requested Visits Authorized [id number] Authorized 04/10/2024 07/09/2024 99 99 Reason Comments Type 2 Diabetes Reason Comments Yearly Exam Reason Onset Date Comments Refill Request 04/21/2024 Reason Comments Nasal Congestion drainage, some cough x 3 days Reason Comments Pre-Op Visit Reason Comments Preparations For Surgery Follow-up Reason Comments URI Reason Comments Pre-Op Teaching Reason Comments Post Op Reason Comments Hypertension Reason Onset Date Comments Refill Request 05/20/2024 Reason Comments Hospital Follow Up Reason Comments Follow Up Reason Onset Date Comments Refill Request 06/11/2024 Reason Comments Radiology NM Specialty Diagnoses / Procedures [facility] Referred To Contact [facility] Diagnoses Malignant neoplasm of left breast in female, estrogen receptor positive, unspecified site of breast (HCC) 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 lymph node (HCC) Procedures NM PET/CT SKULL-THIGH SUBSEQUENT PET IMAGING CT ATTENUATION SKULL BASE MID-THIGH Serena Carrasco, DO [address] [place] [address] Phone: tel: fax: Molecular Imaging [address] [place] [address] Phone: tel: Referral ID Status Reason Start Date Expiration Date V isits Requested Visits Authorized [id number] Closed Auto-Generate d Referral 04/13/2024 05/13/2025 1 1 Reason Comments Post Op Left Breast Total ca psulectomy and implant removal Reason Comments Orders Reason Comments Radiology US Specialty Diagnoses / Procedures Referred By [facility] Referred To Contact US IMAGING Diagnoses Thyroid nodule Procedures US THYROID/PARATHYROID US SOFT TISSUE HEAD & NECK REAL TIME IMGE DOC Serena Carrasco, DO [address] [place] [address] Phone: tel: fax: [place] [address] Referral ID Status Reason Start Date Expiration Date V isits Requested Visits Authorized [id number] Closed Auto-Generate d Referral 07/03/2024 08/02/2025 1 1 Reason Comments Established Patient 3 month OV, lab and PET results. US still in process Reason Comments Post Op Left implant removal and total capsulectomy Reason Comments UTI Reason Onset Date Comments Results 09/10/2024 urine culture 09/10/2024 Reason Comments Check urine for UTI Reason Comments Recheck UTI Reason Onset Date Comments Results 09/23/2024 Reason Comments Orders Appointment Reason Comments Edema Reason Comments Insulin Dependent Diabetes Mellitus Reason Comments Follow Up Post Op Reason Comments Recheck Pain in left arm 09/06 0 heavy tender full warm discolored Reason Comments Radiology NM Specialty Diagnoses / Procedures Referred By Contac t Referred To Contact [facility] Diagnoses Malignant neoplasm of left breast in female, estrogen receptor positive, unspecified site of breast (HCC) 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) Procedures NM PET/CT SKULL-THIGH SUBSEQUENT PET IMAGING CT ATTENUATION SKULL BASE MID-THIGH Serena Carrasco DO [address] [place] [address] Phone: tel: fax: Molecular Imaging [address] [place] [address] Phone: tel: Referral ID Status Reason Start Date Expiration Date V isits Requested Visits Authorized [id number] Closed Auto-Generate d Referral 07/09/2024 08/08/2025 1 1 Reason Comments Insurance Authorization Approval - tirze patide (MOUNJARO) 2.5 mg/0.5 mL pen injector [[employer]] Specialty Diagnoses / Procedures Referred By Contac t Referred To Contact Diagnoses Malignant neoplasm of left breast in female, estrogen receptor positive, unspecified site of breast (HCC) 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) Malignant neoplasm of lower-outer quadrant of left breast of female, estrogen receptor positive (HCC) 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 lymph node (HCC) Serena Carrasco, DO [address] [place] [address] Phone: tel: fax: Hematology/Oncology [address] [place] [address] Phone: tel: fax: Referral ID Status Reason Start Date Expiration Date V isits Requested Visits Authorized [id number] Authorized 11/04/2024 02/02/2025 99 99 Goals (unrecognized section and content) Goals may be documented in a n alternate sectionGoals may be documented in an alternate sectionGoals may be documented in an alternate section Scheduled Active and Recently Administ ered Medications (unrecognized section and content) Medication Order 05/16/2024 05/17/2024 05/18/2024 acetaminophen 1,000 mg tab(s) (TYLENOL) (COMPLETED) 1,000 mg, ORAL, PRE-OP ONCE, 1 dose, On Sat05/18/24 at 1030, Preprocedure 1021 (Given - Provid er: Karyn Noe RN) ceFAZolin 2 g in dextrose (iso-osmotic) 50 mL (ANCEF,KEFZOL) (COMPLETED) 2 g, INTRAVENOUS, at 100 mL/hr, Administer over 30 Minutes, PRE-OP ONCE, 1 dose, On Sat05/18/24 at 1030, General Cases PRE-OP ANTIBIOTIC ADMINISTER ONLY IN SURGICAL AREA DO NOT ADMINSTER ON THE FLOOR REFRIGERATE, Antimicrobial indication: Prophylaxis, Preprocedure 1029 (Sent with Sisi ent - Provider: Karyn Noe RN)1128 (Given - Provider: LORENZA Perry) promethazine 12.5 mg tab(s) (PHENERGAN) (COMPLETED) 12.5 mg, ORAL, PRE-OP ONCE, 1 dose, On Sat05/18/24 at 1030, Preprocedure 1021 (Given - Provid er: Karyn Noe RN) Continuous Medication Order 05/16/2024 05/17/2024 05/18/2024 lactated ringers iv infusion (CANCELED) 30 mL/hr, INTRAVENOUS, CONTINUOUS, Starting on Sat05/18/24 at 1030, Until Sat05/18/24 at 1246, Preprocedure 1021 (New Bag/Syring e/Bottle - Provider: Karyn Noe RN)1246 (Due: Order Ending - Provider: Reg In Adtr - Comment: [Order ends at this time. Document a Stopped action when infusion is complete.]) lactated ringers iv infusion 75 mL/hr, INTRAVENOUS, CONTINUOUS, Starting on Sat05/18/24 at 1300, Until Sat05/19/24 at 0303 1300 (Due) PRN Medication Order 05/16/2024 05/17/2024 05/18/2024 acetaminophen 1,000 mg tab(s) (TYLENOL) 1,000 mg, ORAL, NEEDED, 1 dose, Starting on Sat05/18/24 at 1250, Until Sat05/19/24 at 0303, Mild Pain (1-3) - Enteral bupivacaine (PF) 0.25 % (2.5 mg/mL) 30 mL, BUPivacaine liposome (PF) 20 mL (CANCELED) X (OR/PROCEDURE) PRN, Starting on Sat05/18/24 at 1217, Until Sat05/18/24 at 1304, Intraprocedure 1217 (Given - Provid er: Micki Marcelino MD) diphenhydrAMINE 12.5 mg injection (BENADRYL) 12.5 mg, INTRAVENOUS, NEEDED, 1 dose, Starting on Sat05/18/24 at 1250, Until Sat05/19/24 at 0303, Nausea/Vomiting - Second Line - Parenteral fentaNYL 50 mcg/mL 50 mcg injection (SUBLIMAZE) 50 mcg, INTRAVENOUS, EVERY 5 MINUTES NEEDED, 2 doses, Starting on Sat05/18/24 at 1250, Until Sat05/19/24 at 0303, FIRST LINE THERAPY for moderate or severe pain, USE FOR MODERATE PAIN ONLY IF PATIENT IS UNABLE TO TOLERATE ORAL THERAPY HYDROmorphone 0.5 mg injection (DILAUDID) 0.5 mg, INTRAVENOUS, NEEDED, 4 doses, Starting on Sat05/18/24 at 1250, Until Sat05/19/24 at 0303, SECOND LINE THERAPY for moderate or severe pain, USE FOR MODERATE PAIN ONLY IF PATIENT IS UNABLE TO TOLERATE ORAL THERAPY Caution: IV hydromorphone is approximately 8 times MORE POTENT than IV morphine. For example, hydromorphone 1mg IV = morphine 8mg IV meperidine (PF) 12.5 mg injection (DEMEROL) 12.5 mg, INTRAVENOUS, EVERY 10 MINUTES NEEDED, 2 doses, Starting on Sat05/18/24 at 1250, Until 05/19/24 at 0303, for shivering, May Repeat 12.5 mg in 10 minutes X1 for Continued Shivering NaCl 0.9% irrigation bottle (CANCELED) X (OR/PROCEDURE) PRN, Starting on 05/18/24 at 1130, Until 05/18/24 at 1304, Intraprocedure 1130 (Given - Provid er: Micki Marcelino MD - Comment: on back table) ondansetron (PF) 4 mg injection (ZOFRAN) 4 mg, INTRAVENOUS, NEEDED, 1 dose, Starting on Sat05/18/24 at 1250, Until Tu05/19/24 at 0303, Nausea/Vomiting - First Line - Parenteral, Give IV push over 2 minutes oxyCODONE IR 5-10 mg tab(s) (ROXICODONE) (COMPLETED) 5-10 mg, ORAL, NEEDED, 1 dose, Starting on Sat05/18/24 at 1250, Until 05/18/24 at 1404, Moderate Pain (4-6) - Enteral 1404 (Given - Provid er: Sulma Arriaga RN) FOR RECORDS PERTAINING TO PATIENTS WHO ARE OR HAVE BEEN ENROLLED IN A CHEMICAL DEPENDENCY/SUBSTANCEABUSE PROGRAM, SOME INFORMATION MAY BE OMITTED. This clinical summary was aggregated from multiple sources. Caution should be exercised in using it in the provision of clinical care. This summary normalizes information from multiple sources, and as a consequence, information in this document may materially change the coding, format and clinical context of patient data. In addition, data may be omitted in some cases. CLINICAL DECISIONS SHOULD BE BASED ON THE PRIMARY CLINICAL RECORDS. [employer] [facility]. provides no warranty or guarantee of the accuracy or completeness of information in this document.
[2024-11-15 18:51] LABS: Hematocrit 26.9 % (37-47); Hemoglobin 9.2 g/dL (12.0-15.0); Immature Granulocytes Count 0.040 X10^3/uL (0.0-0.0); Mean Corp Hgb Conc 34.2 g/dL (32-36); Mean Corpuscular Volume 82.0 fL (81-99); Mean Platelet Vol. 10.0 fl (6.2-12.0); NRBC Flagged by Analyzer 0 % (0-5); Platelet Count 135 K/mm3 (150-450); RBC Distribution Width CV 13.0 % (11.6-14.6); RBC Distribution Width SD 39.1 fl (35.1-43.9); Red Blood Count 3.28 M/mm3 (4.2-5.4); White Blood Count 12.9 K/mm3 (4.4-11.0)
[2024-11-15] MEDS: 0.9% Normal Saline (1000mL) 1,000 ML 1000 ML IV (18:55)
[2024-11-15 19:19] LABS: Anion Gap 14 (5-15); BUN 45 mg/dL (4-19); BUN/Creat Ratio 14.1 RATIO (10-20); Calcium,Total 7.7 mg/dL (7.6-11.0); Carbon Dioxide 22.6 mmol/L (21.0-32.0); Chloride 93 mmol/L (98-108); Estimated Creatinine Clearance 18.75 ml/min (50-250); Glucose 123 mg/dL (70-99); Potassium 2.8 mmol/L (3.3-5.1)
[2024-11-15 19:20] LABS: Mucous, Urine 0 SEEN /hpf (<or=2+); Squamous Epithelial Cells - UA 0 SEEN /hpf (5-10)
[2024-11-15 19:49] LABS: Color, Urine Yellow (Yellow); Glucose, Dipstick Normal (Normal); Ketone-Dipstick Negative (Negative); Leukocyte Esterase-Dipstick 500 /ul (Negative); Nitrite-Dipstick Negative (Negative); Occult Blood-Urine 250 /ul (Negative); Protein-Dipstick 100 mg/dl (Negative); Specific Gravity, Urine 1.010 (1.002-1.030); Urine Bilirubin Dipstick Negative (Negative)
[2024-11-15 20:36] LABS: Red Blood Cells-Urine 0-5 SEEN /hpf (0-5)
[2024-11-15 20:38] LABS: Transitional Epithelial - Ur 0-5 SEEN /hpf (0-5)
[2024-11-15] MEDS: Potassium Chloride Oral Tablet 20 MEQ 40 MEQ PO (22:14)
--- NOTE | 2024-11-15 22:14 | PCM.HP.STD ---
HPI - General General Date of Admission: 11/15/24 Date of Service: 11/15/24 Chief Complaint: Decreased oral intake, decreased UOP, diarrhea. HPI Narrative The patient is a 64 y/o F w/ PMHx: CKD stage II per GFR trending, Chronic anemia, Overweight, GERD, Diabetes mellitus type II, HTN, HLD, Hx L breast CA unclear specific type s/p L total breast mastectomy considered in remission, Primary biliary cirrhosis who presents to the [facility] ED on 11/15/2024 with significant fatigue, malaise, increasing weakness as well as loose stools over the last 3 days with decreased oral intake with subjective fevers and chills and diaphoresis with decreased urine output prompting eventual ED evaluation. She does report that she had urinary intact infection approximate 1 month prior specifically E. coli and at that time was treated with Augmentin as far as recent antibiotic therapies but none since. Workup in the ED included T97.8, heart rate 92, BP 103/67, respiratory 18, 99% on room air, notable orthostatic vital signs although slightly atypical with laying 95/59, sitting 121/61, standing 93/52 with no heart rate alteration, most recent repeat vitals of heart rate 99, BP 101/55, respiratory rate 16, 97% on room air, CBC with WC 12.9, hemoglobin 9.2, MCV 82, platelet 135 with left shift, BMP with sodium 130, potassium 2.8, chloride 93, BUN/canaille 45/3.18, GFR 16, glucose 123, urinalysis noted to be cloudy, protein 100, occult blood 250, nitrate negative, leukocyte esterase 500 with urine WBCs greater than 100 with 2+ bacteria with urine culture pending per ED, rapid SARS COVID/)/RSV PCR negative. In the ED patient ministered 1 L normal saline, potassium 40 mill equivalent p.o. x 1, IV Rocephin 1 g x 1. [facility] Medical History History of removal of left breast implant (05/18/24) Acute kidney injury Chemotherapy induced cardiomyopathy Malignant neoplasm of lower-outer quadrant of left breast of female, estrogen receptor positive Type 2 diabetes mellitus with hyperglycemia Primary biliary cirrhosis History of chemotherapy Breast cancer Abnormal mammogram of left breast HTN (hypertension) Home Medications ?Medication ?Instructions ?Recorded ?Last Taken ?Type ascorbic acid (vitamin C) 100 mg 500 mg PO QDAY 03/29/17 05/20/24 History tablet vitamin E (dl, acetate) 45 mg (100 400 unit PO QDAY 03/29/17 05/20/24 History unit) capsule aspirin 81 mg chewable tablet 81 mg PO ONCE 04/04/17 05/20/24 History cyanocobalamin (vitamin B-12) 1,000 mcg PO DAILY 04/23/17 05/20/24 History 1,000 mcg capsule ergocalciferol (vitamin D2) 1,250 50,000 unit PO QWEEK 09/03/23 Unknown History mcg (50,000 unit) capsule (Vitamin D2) everolimus (antineoplastic) 10 mg 10 mg PO DAILY 09/03/23 05/20/24 History tablet exemestane 25 mg tablet 25 mg PO DAILY 09/03/23 05/20/24 History lorazepam 0.5 mg tablet 0.5 mg PO TID PRN anxiety 09/03/23 Unknown History pantoprazole 40 mg tablet,delayed 40 mg PO DAILY 09/03/23 05/20/24 History release calcium carbonate 1,000 mg PO DAILY 10/09/23 Unknown History amlodipine 5 mg tablet 5 mg PO QDAY #90 tabs 07/02/24 Unknown Rx insulin glargine 100 unit/mL (3 20 unit subcut QAM 07/02/24 Unknown History mL) subcutaneous pen (Lantus Solostar U-100 Insulin) metoprolol succinate 25 mg 25 mg PO QDAY 07/02/24 Unknown History tablet,extended release 24 hr ursodiol 500 mg tablet (DARRELL Forte) 1,250 mg PO QDAY 07/02/24 Unknown History hydrochlorothiazide 12.5 mg tablet 12.5 mg PO QDAY 11/02/24 Unknown History losartan 25 mg tablet 50 mg PO DAILY 11/15/24 Unknown History tirzepatide 2.5 mg/0.5 mL 2.5 mg subcut QWEEK 11/15/24 Unknown History subcutaneous pen injector (Mounjaro) trazodone 50 mg tablet 50 mg PO QHS 11/15/24 Unknown History Allergy/AdvReac Type Severity Reaction Status Date / Time No Known Allergies Allergy Verified 11/02/24 11:11 Family History Mother Diabetes Heart disease Hypertension CVA (cerebral vascular accident) Father Diabetes Hypertension Surgical History Hx of total mastectomy of left breast S/P breast biopsy S/P total knee replacement History of section Social History household members: spouse Smoking Status: Never smoker alcohol intake: current alcohol intake frequency: 0-2 drinks per day substance use type: does not use ROS ROS Narrative Admission Review of Systems: CONSTITUTIONAL: No weight loss, + fever, chills, weakness or fatigue. HEENT: Eyes: No visual loss, blurred vision, double vision or yellow sclerae. Ears, Nose, Throat: No hearing loss, sneezing, congestion, runny nose or sore throat. SKIN: No rash or itching, lesions, wounds. CARDIOVASCULAR: No chest pain, chest pressure or chest discomfort, palpitations, edema, orthopnea, syncopal events. RESPIRATORY: No shortness of breath, cough or sputum, wheezing, hemoptysis. GASTROINTESTINAL: + anorexia, nausea, diarrhea. No vomiting, abdominal pain, melena, BRBPR. GENITOURINARY: + Decreased urine output. No dysuria, frequency, urgency or retention. NEUROLOGICAL: No headache, dizziness, syncope, paralysis, ataxia, numbness or tingling in the extremities, focal weakness, change in bowel or bladder control, seizure. MUSCULOSKELETAL: + muscle, back pain, joint pain or stiffness. HEMATOLOGIC: + Chronic anemia, easy bleeding/bruising. LYMPHATICS: No enlarged nodes. No history of splenectomy. PSYCHIATRIC: + History of anxiety. ENDOCRINOLOGIC: No reports of sweating, cold or heat intolerance. No polyuria or polydipsia. ALLERGIES: No history of asthma, hives, eczema or rhinitis. Vital Signs Vital Signs Vital Signs: 11/15/24 17:38 11/15/24 17:38 11/15/24 19:38 Temperature 97.8 F Temperature Source Oral Pulse Rate 92 86 Pulse Rate [Lying] Pulse Rate [Sitting (for 1 minute prior to obtaining)] Pulse Rate [Standing (for 1 minute prior to obtaining)] Respiratory Rate 18 16 Respiratory Effort Normal Non-Labored Respiratory Pattern Normal Blood Pressure 103/67 103/62 Blood Pressure [Lying] Blood Pressure [Sitting (for 1 minute prior to obtaining)] Blood Pressure [Standing (for 1 minute prior to obtaining)] Blood Pressure Mean 79 75 Blood Pressure Mean [Lying] Blood Pressure Mean [Sitting (for 1 minute prior to obtaining)] Blood Pressure Mean [Standing (for 1 minute prior to obtaining)] Pulse Ox 99 96 Oxygen Delivery Method Room Air Room Air 11/15/24 19:56 11/15/24 21:00 Temperature Temperature Source Pulse Rate 99 Pulse Rate [Lying] 90 Pulse Rate [Sitting (for 1 minute prior to obtaining)] 98 Pulse Rate [Standing (for 1 minute prior to obtaining)] 93 Respiratory Rate 16 Respiratory Effort Respiratory Pattern Blood Pressure 101/55 L Blood Pressure [Lying] 95/59 L Blood Pressure [Sitting (for 1 minute prior to obtaining)] 121/61 H Blood Pressure [Standing (for 1 minute prior to obtaining)] 93/52 L Blood Pressure Mean 70 Blood Pressure Mean [Lying] 71 Blood Pressure Mean [Sitting (for 1 minute prior to obtaining)] 81 Blood Pressure Mean [Standing (for 1 minute prior to obtaining)] 65 Pulse Ox 97 Oxygen Delivery Method Room Air Weight Weight: 175 lb Body Mass Index (BMI) 28.2 Physical Exam Narrative Physical Examination: General: Awake, alert, oriented x 3 and cooperative, seated upright in the ED bed in no apparent distress, fatigued but denies any acute complaints at this time. Skin: Normal color, normal turgor, no icterus, no cyanosis except occasional stage ecchymoses, abrasion. HEENT: AT/NC, EOMI, PERRLA, moderately dry MM, no carotid bruits or JVD noted. Lungs: CTA bilaterally, moderate effort, mild decrease BL bases, no rales, ronchi or wheezing. Heart: Mildly tachycardic with regular rhythm; no gallop, rub audible. Abdomen: Soft, overweight, NTTP, ND, mildly hyperactive BS, no appreciated HSM. Extremities: No cyanosis, no clubbing, no significant pitting edema noted. Neurological: Patient awake, alert, oriented as noted, cognitive function intact; pupils equally reactive to light and accommodation, cranial nerves grossly normal, moving all 4 extremities, no focal deficits, strength moderately globally decreased secondary to acute presentation complaints. Psychiatric: Affect appears mildly flat, fatigued, no acute evidence of depressive or anxiety feelings but does have underlying anxiety history. Results Lab / Micro Data 11/15/24 18:47 11/15/24 18:47 Labs: Laboratory Results - last 24 hr 11/15/24 18:47: WBC 12.9 H, RBC 3.28 L, Hgb 9.2 L, Hct 26.9 L, MCV 82.0, MCH 28.0, MCHC 34.2, RDW Std Deviation 39.1, RDW Coeff of Rosie 13.0, Plt Count 135 L, MPV 10.0, Immature Gran % (Auto) 0.300, Neut % (Auto) 86.5 H, Lymph % (Auto) 8.9 L, Arthur % (Auto) 4.2, Eos % (Auto) 0.0, Baso % (Auto) 0.1, Absolute Neuts (auto) 11.1 H, Absolute Lymphs (auto) 1.15, Nucleated RBC % 0, Sodium 130 L, Potassium 2.8 L, Chloride 93 L, Carbon Dioxide 22.6, Anion Gap 14, BUN 45 H, Creatinine 3.18 H, Estim Creat Clear Calc 18.75 L, Est GFR (MDRD) Non-Af 16 L, BUN/Creatinine Ratio 14.1, Glucose 123 H, Calcium 7.7 11/15/24 19:12: Urine Color Yellow, Urine Clarity Sl. Cloudy, Urine pH 5.0, Ur Specific [place] 1.010, Urine Protein 100 H, Urine Glucose (UA) Normal, Urine Ketones Negative, Urine Occult Blood 250 H, Urine Nitrite Negative, Urine Bilirubin Negative, Urine Urobilinogen Normal, Ur Leukocyte Esterase 500 H, Urine RBC 0-5 SEEN, Urine WBC >100 SEEN, Ur Squamous Epith Cells 0 SEEN, Ur Transition Epith Cell 0-5 SEEN, Ur Renal Epithelial Cell 0-5 SEEN, Urine Bacteria 2+, Urine Mucus 0 SEEN Micro: Microbiology 11/15/24 19:12 Mucosa - Nose SARS-CoV-2, Influenza & RSV (PCR) - Final Assessment & Plan Assessment/Plan (1) Urinary tract infection: PLAN: Plan The patient is a 64 y/o F w/ PMHx: CKD stage II per GFR trending, Chronic anemia, Overweight, GERD, Diabetes mellitus type II, HTN, HLD, Hx L breast CA unclear specific type s/p L total breast mastectomy considered in remission, Primary biliary cirrhosis who presents to the [facility] ED on 11/15/2024 with significant fatigue, malaise, increasing weakness as well as loose stools over the last 3 days with decreased oral intake with subjective fevers and chills and diaphoresis with decreased urine output prompting eventual ED evaluation. #1. Acute Urinary Tract Infection: Will admit to [facility] upon ED evaluation remarkable, pending UCx, will continue IVFs, monitor I/Os, continue IV Rocephin w/ transition as able pending sensitivities and speciation. Bld cx x 2 obtained in the ED. #2. Acute kidney injury on CKD stage II per previous GFR trending although has occasionally vacillated: Secondary to acute presentation as noted #1, in addition to GI losses and poor oral intake hypovolemic component. Admission BUN/Cr 45/3.18, GFR 16, prior baseline creatinine noted to be primarily 0.8-1.1. Will continue to aggressively hydrate, hold nephrotoxic medications and repeat chemistry in AM. #3. Persistent diarrhea, potentially gastroenteritis versus secondary to #1: Will continue aggressive hydration, will obtain c diff, stool cx to be cautious however do suspect likely secondary to acute complicated urinary tract infection, as noted will maintain on IV Rocephin in the interim. #4. Thrombocytopenia, acute: Admission platelets 135, no prior significant thrombocytopenia noted, potentially reactive given acute presentation as noted above, will trend CBC. Cautiously using chemoprophylaxis as noted. #5. Hyponatremia, hypochloremia, suspected hypovolemic etiology secondary to GI losses and poor intake: Admission sodium 130, chloride 93, likely hypovolemic especially given #1 presentation, will continue aggressive hydration, repeat CMP in AM. #6. Hypokalemia: Admission K+ 2.8, magnesium level requested, supplementation given, repeat level in AM. #7. Hx L breast CA unclear specific type: s/p L total breast mastectomy considered in remission, encouraged continued outpatient follow-up as previously arranged. Clarifying chronic regimen as listed on everolimus and exemestane. #8. Primary biliary cirrhosis: Noted in history, will obtain CMP in a.m. is only BMP obtained upon presentation, will continue patient on ursodiol regimen, continue to encourage outpatient GI evaluation and follow-up. #9. Hypertension: Will temporally hold hypertensive regimen as BP low normal in the ED as well as LAXMI, resume once clinically appropriate. #10. Chronic normocytic anemia: Admission hemoglobin 9.2, MCV 82, has vacillated, baseline hemoglobin more recently noted to be low 10 range, will continue to trend. #11. Overweight: Weight loss and lifestyle changes encouraged. #12. Anxiety: Will cautiously continue patient low-dose as needed lorazepam regimen, hold for sedation, do not want to cause patient withdrawal but if necessary with worsening renal function will hold. #13. Diabetes mellitus type II: Hold oral home regimen, continue home insulin regimen, encourage oral intake/ADA diet, accu checks w/ ISS. #14. GERD: Will continue patient on PPI. #15. Hyperlipidemia: Not on regimen, potential secondary to underlying primary biliary cirrhosis, defer to outpatient. #16. DVT prophylaxis: Heparin. #17. CODE status: Patient GUILHERME is her and living will is currently in place. Discussed CODE status at length including difference between FULL code, DNR-CCA and DNR-CC status. Following discussions about the differences in these status, requested Full Code status. Charges/Coding Visit Charges Inpatient E&M: 75400 Init Hosp L3
--- OUTSIDE RECORDS SUMMARY | 2024-11-15 22:49 | XMS RPT_ITS | CCD ---
Author Organization [facility] Care Team Providers Care Print Line Supervisor Name Role Phone Mindi Dasilva Unavailable Subhash Silverio Unavailable Palma Carter Unavailable Surinder Valdivia Unavailable Emily Arteaga Unavailable Unavailable Zee Avlia Unavailable Unavailable Unavailable Unavailable Ankush RN, Dena [...] Jesus Unavailable Eliz Bingham MD Unavailable Paneccasio [facility], Tatianna Unavailable Jacinta Rivas MD Primary Care Provider Dave PT, Lizeth Unavailable Roscoe MIRAMONTES, Lisa Unavailable Burr 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, Cathy Unavailable Rona 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, Lisbet Unavailable Rona 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, Lisbet Angelita Unavailable Rona 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, Lisbet Unavailable Rona 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, Lisbet Unavailable Rona 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, Lisbet Unavailable TALAMPAS, JACINTA D Primary Care Unavailable ELIZ BINGHAM Referring Unavailable TALAMPAS, JACINTA D Primary Care Unavailable MICKI BUTLER Attending Unavailable Burr 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, Cathy Unavailable Burr 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, Cathy Unavailable SERENA CARRASCO Referring Unavailable TALAMPAS, [...] , Dr. Jacinta North Primary Care Provider Nata NARAYAN, Dr. Mendez Attending Provider Nata NARAYAN, Dr. Mendez Referring Provider Terence NARAYAN, Dr. Jacinta North Referring Provider [phone] Paulo Bajwa Attending Provider MILAGROS BROWN Attending Unavailable BLOCK, MICKI Referring [...] Care Unavailable Nata, Andrea Referring Unavailable Nata, Aurora Attending Unavailable Rai Sterling Attending Unavailable Talampas, Jacinta D Primary Care Unavailable Demiter, Paulo Referring Unavailable Demiter, Paulo Attending Unavailable Talampas, Jacinta D Primary Care Unavailable TALAMPAS, JACINTA D Primary Care Unavailable MASCI, SERENA Referring Unavailable TALAMPAS, JACINTA D Primary Care Unavailable MASCI, SERENA Referring Unavailable TALAMPAS, JACINTA D Primary Care Unavailable TALAMPAS, JACINTA D Primary Care Unavailable SELF Referring Unavailable LISBET PIZANO Attending Unavailable MASCI, SERENA Referring Unavailable TALAMPAS, [...] JACINTA D Primary Care Unavailable SERENA CARRASCO Attending [...] (antibiotic) (2 sources) Amoxicillin Drug Allergy 11-15-2022 [facility] (20 sources) Amoxicillin; Translations: [AMOXICILLIN] Drug Allergy 11-15-2022 [facility] Work Phone: Medications Current Medications Medication Drug [...] D2) 1,250 mcg (50,000 unit) capsule Active 99605 U PO EVERY WEEK September 03, 2023 10:04am Start: 10-20-2018 take 1 capsule by [facility] two times weekly Ergocalciferol 81602 UNIT Oral Capsule 1 (one) Capsule twice weekly for 0 days Quantity: 24 {Capsule} Refills: 1 Ordered: 20-Oct-2018 Mindi Dasilva DO, DO, Kathleen Start : 20-Oct-2018 Active Start: 07-11-2018 take 1 capsule by mo ut two times weekly Ergocalciferol 30441 UNIT Oral Capsule 1 (one) Capsule twice weekly for 0 days Quantity: 24 {Capsule} Refills: 0 Ordered: 11-Jul-2018 Mindi Dasilva DO, DO, Kathleen Start : 11-Jul-2018 Active Start: 04-21-2018 take 1 capsule by mo ut two times weekly Ergocalciferol 00920 UNIT Oral Capsule 1 (one) Capsule twice weekly for 0 days Quantity: 24 {Capsule} Refills: 0 Ordered: 21-Apr-2018 Brown COMBS Mindi Dhillon DO Start : 21-Apr-2018 Active Start: 04-23-2017 End: 09-03-2023 Ergocalciferol (Vitamin D2) (Vitamin D2) 50,000 UNIT capsule Discontinued 1.25 mg PO TUSA April 23, 2017 1:00am September 03, 2023 10:06am Start: 03-25-2017 take 1 capsule by [facility] every week VITAMIN D 50,000 unit capsule [...] Comment on above: Take 1 tablet by [facility] once daily. TAKE AFTER A MEAL. hydroCHLOROthiazide 12.5 mg oral tablet (20 sources) Thiazide Diuretic Start : 11-02 take 1 tablet by mouth once daily Hydrochlorothiazide 12.5 mg tablet Active 12.5 mg PO daily November 02, 2024 12:00am Start: 10-30-2024 take 1 capsule by [facility] once daily hydroCHLOROthiazide 12.5 mg capsule Take [...] th once daily. take 1 tablet by severo th once daily methylPREDNISolone (1 source) Corticosteroid [...] Comment on above: Take 1 capsule by [facility] twice daily for 5 days. ONETOUCH ULTRA [...] 3 tablets by mo ut once daily Leena Forte 500 MG Oral Tablet 3 qd [...] 1:00am Start: 03-29-2017 take 400 [facility]IU[facility] Vitamin E (Dl, Acetate) Active 400 UNIT PO daily March 29, 2017 1:00am Start: 09-09-2009 take 1 capsule by mo [facility] once daily VITAMIN E, 100UNIT (Oral Capsule) 1 Capsule Daily for 0 days Quantity: 90 {Capsule} Refills: 0 Ordered: 09-Sep-2009 Tasia Phillips RN Start : 09-Sep-2009 Active take 1 capsule by mo [facility] once daily alpha tocopheryl acetate (VITAMIN E) 400 unit capsule Take 400 Units by mouth once daily. Active take 1 capsule by mo [facility] once daily alpha tocopheryl acetate (VITAMIN E) 400 unit capsule Take 400 Units by mouth once daily. 0 Active Comment on above: Take 400 Units by [facility] once daily. Completed/Discontinued Medications Medication Drug Class(es) [...] (4 sources) ACTAVIS 500mg bi d Active [id number] 200 actuat albuterol 0.09 mg/actuat metered dose [...] Sat05/18/24 at 1300, Until Sat05/19/24 at 0303 MHZJZAX-JXCQKYROO-T INC ORAL (20 sources) End: 11-04-19 24 take 1 tablet by mouth once daily LJLAKFX-TMNAJGGLD-M INC ORAL Take 1 tablet by mouth once daily. 0 11/04/2023 Discontinued take 1 tablet by mouth once merry y EUDOQDK-GQVSPMSNI-WQYM ORAL Take 1 tablet by mouth once daily. 0 Active Comment on above: Take 1 tablet by [facility] once daily. CANNABIDIOL, CBD, EXTRACT ORAL (2 [...] on above: Take 1 capsule by mo [facility] twice daily for 5 days. cetirizine hydrochloride [...] by mouth every six hours as needed uzfdprrgsjZGIWW-uyugya-yqqadkyrc (BMX 1: 1:1) 1:1:1 liqd Indications: Stomatitis and mucositis Take 5 mL by mouth every 6 hours as needed. 140 mL 5 05/24/2023 07/05/2023 Active Start: 05-24-2023 End: 05-24-2023 take 5 mL by mouth every six hours as needed arbwhdflgvEIUAB-wgdtlc-sgtlunkxu (BMX 1: 1:1) 1:1:1 liqd Indications: Stomatitis and mucositis Take 5 mL by mouth every 6 hours as needed. 140 mL 5 05/24/2023 05/24/2023 Discontinued End: 11-04-2023 jwihgkgysxOWASX-nwzugl-bnqlc cynthia (BMX 1:1:1) 1:1:1 liqd Take by [...] Comment on above: Take 1 capsule by [facility] once daily. take 1 capsule by [facility] once daily 1 ml fentaNYL 0.05 mg/ml [...] Comment on above: Take 1 tablet by [facility] once daily. TAKE 1 TABLET DAILY microencapsulated [...] sources) Start: 11-06-2022 take 3 tablets by [facility] once daily Ribociclib 600 mg/day (200 mg [...] Discontinued Start: 11-01-2022 take 3 tablets by [facility] once daily Ribociclib 600 mg/day (200 mg [...] 8 11-21-2017 Episodic Other aftercare (2 sources) [facility] (current) use of insulin; Translations: [Type 2 [...] 11-09-2024 CNTHERAPY OT/PT/Speech Visit (PNORCA) PAT SORTO ([id number]) 1960 F [facility] Date Time Provider Department 11/09/24 2:15 PM MILAGROS BROWN [facility] Date Time Provider Department Center 11/09/2024 2:15 PM [id number], CAROL A [facility] N Reason for Visit: PT Progress Note [...] by mouth at bedtime as needed. - [employer] ULTRA PLUS TEST strp 1 Each two [...] Take 1 tablet by mouth once daily. [facility] CNPNon 11-06-2024 CNPN [facility] CNTHERAPYon 11-06-2024 CNTHERAPY OT/PT/Speech Visit (PNORCA) PAT SORTO ([id number]) 1960 F [facility] Date Time Provider Department 11/06/24 9:45 AM NOE JACKSON Date Time Provider Department Center 11/06/2024 9:45 AM [id number], MIRANDA RALEIGH [facility] N Reason for Visit: Physical [...] by mouth at bedtime as needed. - [employer] ULTRA PLUS TEST strp 1 Each two [...] Take 1 tablet by mouth once daily. [facility] CNTHERAPYon 11-04-2024 [facility] ([id number]) 1960 F [facility] Date Time Provider Department 11/04/24 10:30 AM NOE JACKSONWA Date Time Provider Department Center 11/04/2024 10:30 AM [id number], MIRANDA [facility] N Reason for Visit: Physical Therapy [503] [...] by mouth at bedtime as needed. - [employer] FinancialTOUCH ULTRA PLUS TEST strp 1 Each two [...] 1 tablet by mouth once daily. Normal [facility] Cardiology Visit Reporton Cardiology Visit Report [facility] [address] [place], [place] [id number] OFFICE VISIT Date of Service: 11/02/24 MR#: [id number] Acct: [id number] Name: PAT SORTO Rep #: [id number] : 1960 Provider: RUSSELL Lr Age/Sex: 64/F Location: [facility] Status: Signed HPI HPI History of Present [...] room air Intake Visit Reasons: 4 M Epic Specialist Required: No Accompanied by: Self Is patient [...] vomiting o (more content not included)... Normal [facility] CNOVSPon 10-30-2024 CNOVSP Normal [facility] CNTHERAPYon 10-30-2024 CNTHERAPY OT/PT/Speech Visit (PNORCA) PAT SORTO ([id number]) 1960 F [facility] Date Time Provider Department 10/30/24 3:00 PM NOE JACKSONWA Date Time Provider Department Center 10/30/2024 3:00 PM [id number], MIRANDA [facility] N Reason for Visit: Physical [...] Take 1 tablet by mouth once daily. [facility] CNTHERAPYon 10-28-2024 CNTHERAPY OT/PT/Speech Visit (PNORCA) PAT SORTO ([id number]) 1960 F [facility] Date Time Provider Department 10/28/24 3:45 PM NOE JACKSON Date Time Provider Department Center 10/28/2024 3:45 PM [id number], MIRANDA [facility] N Reason for Visit: Physical Therapy [503] Primary Visit Diagnosis:Lymphedema of left arm [I89.0] Allergies As of Date: 10/28/2024 Noted Allergy Reaction AMOXICILLIN 11/15/2022 2 - Rash Comments: rash arms trunk neck face, itching Chills Tolerates Ancef Date Reviewed: 10/26/2024 Reviewed by: Lisbet Pizano APRN.SECURITY GUARD DISPATCHER - Fully Assessed Prescriptions as of 10/28/2024 [...] by mouth at bedtime as needed. - [employer] FinancialTOUCH ULTRA PLUS TEST strp 1 Each two [...] 1 tablet by mouth once daily. Normal [facility] CBC W Auto Differential pane l (Bld)on 10-27-2024 Basophils (Bld) [#/Vol] 0.05 10*3/uL Normal <0.11 [facility] Comment on above: Order Comment: Speci men Type: BLOOD SPECIMENOrdering Facility: [facility] Address: [address] [place] [address] Performed By: #### 5 7021-8 ####[facility] [id number] [place] [address] [place] Basophils/100 WBC (Bld) 0.9 % Normal [facility] Comment on above: Order Comment: Speci men Type: BLOOD SPECIMENOrdering Facility: [facility] Address: [address] [place], [place] [address] Performed By: #### 5 7021-8 ####[facility] [id number] [place] [address] [place] Differential cell count method Nom (Bld) Auto Normal [facility] Comment on above: Order Comment: Speci men Type: BLOOD SPECIMENOrdering Facility: [facility] Address: [address] [place] [address] Performed By: #### 5 7021-8 ####[facility] MAURYHAMPSHIRECARLOSLIA [id number] [place] [address] [place] Eosinophils (Bld) [#/Vol] 0.09 10*3/uL Normal <0.46 [facility] Comment on above: Order Comment: Speci men Type: BLOOD SPECIMENOrdering Facility: [facility] Address: [address] [place] [address] Performed By: #### 5 7021-8 ####[facility] [id number] [place] [address] [place] Eosinophils/100 WBC (Bld) 1.6 % Normal [facility] Comment on above: Order Comment: Speci men Type: BLOOD SPECIMENOrdering Facility: [facility] Address: [address] [place] [address] Performed By: #### 5 7021-8 ####[facility] [id number] [place] [address] [place] Erythrocyte distribution width (RBC) [Ratio] 13.4 % Normal 11.5-15.0 [facility] Comment on above: Order Comment: Speci men Type: BLOOD SPECIMENOrdering Facility: [facility] Address: [address] [place] [address] Performed By: #### 5 7021-8 ####[facility]ITALNCLIA [id number] [place] [address] [place] Hematocrit (Bld) [Volume fraction] 27.3 % Low 36.0-46.0 [facility] Comment on above: Order Comment: Speci men Type: BLOOD SPECIMENOrdering Facility: [facility] Address: [address] [place] [address] Performed By: #### 5 7021-8 ####[facility]ITALWYISSELA [id number] [place] [address] [place] Hemoglobin (Bld) [Mass/Vol] 9.1 g/dL Low 11.5-15.5 [facility] Comment on above: Order Comment: Speci men Type: BLOOD SPECIMENOrdering Facility: [facility] Address: [address] [place] [address] Performed By: #### 5 7021-8 ####[facility] [id number] [place] [address] [place] Immature granulocytes (Bld) [#/Vol] 0.03 10*3/uL Normal <0.10 [facility] Comment on above: Order Comment: Speci men Type: BLOOD SPECIMENOrdering Facility: [facility] Address: [address] [place] [address] Performed By: #### 5 7021-8 ####[facility] [id number] [place] [address] [place] Immature granulocytes/100 WBC (Bld) 0.5 % Normal [facility] Comment on above: Order Comment: Speci men Type: BLOOD SPECIMENOrdering Facility: [facility] Address: [address] [place] [address] Performed By: #### 5 7021-8 ####[facility] [id number] [place] [address] [place] Lymphocytes (Bld) [#/Vol] 1.48 10*3/uL Normal 1.00-4.00 [facility] Comment on above: Order Comment: Speci men Type: BLOOD SPECIMENOrdering Facility: [facility] Address: [address] [place] [address] Performed By: #### 5 7021-8 ####[facility] HOSPITALNCLI [id number] [place] [address] [place] Lymphocytes/100 WBC (Bld) 26.4 % Normal [facility] Comment on above: Order Comment: Speci men Type: BLOOD SPECIMENOrdering Facility: [facility] Address: [address] [place] [address] Performed By: #### 5 7021-8 ####[facility]ITALNCM[facility] [id number] [address] [place] [facility] MCH (RBC) [Entitic mass] 28.3 pg Normal 26.0-34.0 [facility] Comment on above: Order Comment: Speci men Type: BLOOD SPECIMENOrdering Facility: [facility] Address: [address] [place] [address] Performed By: #### 5 7021-8 ####[facility] [id number] [place] [address] [place] MCHC (RBC) [Mass/Vol] 33.3 g/dL Normal 30.5-36.0 [facility] Comment on above: Order Comment: Speci men Type: BLOOD SPECIMENOrdering Facility: [facility] Address: [address] [place] [address] Performed By: #### 5 7021-8 ####[facility] [id number] [place] [address] [place] MCV (RBC) [Entitic vol] 84.8 fL Normal 80.0-100.0 [facility] Comment on above: Order Comment: Speci men Type: BLOOD SPECIMENOrdering Facility: [facility] Address: [address] [place] [address] Performed By: #### 5 7021-8 ####[facility]ITALNCM[facility] [id number] [place] [address] [place] Monocytes (Bld) [#/Vol] 0.44 10*3/uL Normal <0.87 [facility] Comment on above: Order Comment: Speci men Type: BLOOD SPECIMENOrdering Facility: [facility] Address: [address] [place] [address] Performed By: #### 5 7021-8 ####[facility] MAURYHAMPSHIREYISSELA [id number] [place] [address] [place] Monocytes/100 WBC (Bld) 7.8 % Normal [facility] Comment on above: Order Comment: Speci men Type: BLOOD SPECIMENOrdering Facility: [facility] Address: [address] [place] [address] Performed By: #### 5 7021-8 ####[facility] HOS[facility]ITALNCLIA [id number] [place] [address] [place] Neutrophils (Bld) [#/Vol] 3.52 10*3/uL Normal 1.45-7.50 [facility] Comment on above: Order Comment: Speci men Type: BLOOD SPECIMENOrdering Facility: [facility] Address: [address] [place] [address] Performed By: #### 5 7021-8 ####[facility] [id number] [place] [address] [place] Neutrophils/100 WBC (Bld) 62.8 % Normal [facility] Comment on above: Order Comment: Speci men Type: BLOOD SPECIMENOrdering Facility: [facility] Address: [address] [place] [address] Performed By: #### 5 7021-8 ####[facility]ABIL[facility] HOSPITALLIA [id number] [place] [address] [place] Nucleated RBC (Bld) [#/Vol] 10*3/uL Normal <0.01 [facility] Comment on above: Order Comment: Speci men Type: BLOOD SPECIMENOrdering Facility: [facility] Address: [address] [place] [address] Performed By: #### 5 7021-8 ####[facility]OSPITALTOWNCLIA [id number] [place] [address] [place] Nucleated RBC/100 WBC (Bld) [Ratio] 0.0 /100 WBC Normal [facility] Comment on above: Order Comment: Speci men Type: BLOOD SPECIMENOrdering Facility: [facility] Address: [address] [place] [address] Performed By: #### 5 7021-8 ####[facility] MAURYHAMPSHIRENIA [id number] [place] [address] [place] Platelet mean volume (Bld) [Entitic vol] 9.8 fL Normal 9.0-12.7 [facility] Comment on above: Order Comment: Speci men Type: BLOOD SPECIMENOrdering Facility: [facility] Address: [address] [place] [address] Performed By: #### 5 7021-8 ####[facility] HOSPITALCARLOSKey [id number] [place] [address] [place] Platelets (Bld) [#/Vol] 204 10*3/uL Normal 150-400 [facility] Comment on above: Order Comment: Speci men Type: BLOOD SPECIMENOrdering Facility: [facility] Address: [address] [place] [address] Performed By: #### 5 7021-8 ####[facility] MAURYHAMPSHIRECARLOSLIA [id number] [place] [address] [place] RBC (Bld) [#/Vol] 3.22 10*6/uL Low 3.90-5.[address] [facility] Comment on above: Order Comment: Speci men Type: BLOOD SPECIMENOrdering Facility: [facility] Address: [address] [place] [address] Performed By: #### 5 7021-8 ####[facility] HOSPITALNCLIA [id number] [place] [address] [place] WBC (Bld) [#/Vol] 5.61 10*3/uL Normal 3.70-11.[address] [facility] Comment on above: Order Comment: Speci men Type: BLOOD SPECIMENOrdering Facility: [facility] Address: [address] [place] [address] Performed By: #### 5 7021-8 ####[facility] HOSPITALCARLOSLIA [id number] [place] [address] [facility] Comprehensive metabolic 2000 panelon 10-27-2024 Albumin [Mass/Vol] 3.9 g/dL Normal 3.9-4.[address] [facility] Comment on above: Order Comment: Speci men Type: BLOOD SPECIMENOrdering Facility: [facility] Address: [address] [place] [address] Performed By: #### 2 4323-8 ####[facility]ABIL[facility] HOSPITALLIA [id number] [place] [address] [place] ALP [Catalytic activity/Vol] 57 U/L Normal 34-123 [facility] Comment on above: Order Comment: Speci men Type: BLOOD SPECIMENOrdering Facility: [facility] Address: [address] [place] [address] Performed By: #### 2 4323-8 ####[facility]IL[facility] HOSPITALLIA [id number] [address] OF HEATHER ALT [Catalytic activity/Vol] 16 U/L Normal 7-38 [facility] Comment on above: Order Comment: Speci men Type: BLOOD SPECIMENOrdering Facility: [facility] Address: [address] [place] [address] Performed By: #### 2 4323-8 ####[facility] MILLTOWNCLIA [id number] [place] [address] [place] Anion gap [Moles/Vol] 14 mmol/L Normal 8-15 [facility] Comment on above: Order Comment: Speci men Type: BLOOD SPECIMENOrdering Facility: [facility] Address: [address] [place] [address] Performed By: #### 2 4323-8 ####[facility] FLORESITANCSADAF [id number] [place] [address] [place] AST [Catalytic activity/Vol] 23 U/L Normal 13-35 [facility] Comment on above: Order Comment: Speci men Type: BLOOD SPECIMENOrdering Facility: [facility] Address: [address] [place] [address] Performed By: #### 2 4323-8 ####[facility] FLORESITANCASHAA [id number] [place] [address] [place] Bilirubin [Mass/Vol] 0.4 mg/dL Normal 0.2-1.3 [facility] Comment on above: Order Comment: Speci men Type: BLOOD SPECIMENOrdering Facility: [facility] Address: [address] [place] [address] Performed By: #### 2 4323-8 ####[facility] HOSPITALNCLIA [id number] [place] [address] [place] Calcium [Mass/Vol] 9.2 mg/dL Normal 8.5-10.[address] [facility] Comment on above: Order Comment: Speci men Type: BLOOD SPECIMENOrdering Facility: [facility] Address: [address] [place] [address] Performed By: #### 2 4323-8 ####[facility] MAURYWNCLIA [id number] [place] [address] [place] Chloride [Moles/Vol] 100 mmol/L Normal 98-107 [facility] Comment on above: Order Comment: Speci men Type: BLOOD SPECIMENOrdering Facility: [facility] Address: [address] [place] [address] Performed By: #### 2 4323-8 ####[facility] MILLTORWNCLIA [id number] [place] [address] [place] CO2 [Moles/Vol] 23 mmol/L Normal 22-30 [facility] Comment on above: Order Comment: Speci men Type: BLOOD SPECIMENOrdering Facility: [facility] Address: [address] [place] [address] Performed By: #### 2 4323-8 ####[facility] HOSPITALNCLIA [id number] [place] [address] [place] Creatinine [Mass/Vol] 1.86 mg/dL High 0.58-0.96 [facility] Comment on above: Order Comment: Speci men Type: BLOOD SPECIMENOrdering Facility: [facility] Address: [address] [place] [address] Performed By: #### 2 4323-8 ####[facility] HOSPITALNCLIA [id number] [place] [address] [place] eGFRcr SerPlBld CKD-EPI 2020 30 mL/min/1.73m??? Low >=60 [facility] Comment on above: Order Comment: Speci men Type: BLOOD SPECIMENOrdering Facility: [facility] Address: [address] [place] [address] Result Comment: Sherlyn mated Glomerular Filtration Rate [...] actual GFR. Performed By: #### 2 4323-8 ####[facility] MAURYWNCLIA [id number] [place] [address] [place] Glucose [Mass/Vol] 204 mg/dL High 74-[address] [facility] Comment on above: Order Comment: Speci men Type: BLOOD SPECIMENOrdering Facility: [facility] Address: [address] [place], [place] [address] Result Comment: The [place] Diabetes [employer] (ADA) provides guidance for cutoff [...] Standards of Medical Care in Diabetes 2016, [place] [employer]. Diabetes Care. 2016.39(Suppl 1). Performed By: #### 2 4323-8 ####[facility] [id number] [place] [address] [place] Potassium [Moles/Vol] 3.8 mmol/L Normal 3.7-5.1 [facility] Comment on above: Order Comment: Speci men Type: BLOOD SPECIMENOrdering Facility: [facility] Address: [address] [place] [address] Performed By: #### 2 4323-8 ####[facility] [id number] [place] [address] [place] Protein [Mass/Vol] 7.1 g/dL Normal 6.3-8.[address] [facility] Comment on above: Order Comment: Speci men Type: BLOOD SPECIMENOrdering Facility: [facility] Address: [address] [place], [place] [address] Performed By: #### 2 4323-8 ####[facility] [id number] [place] [address] [place] Sodium [Moles/Vol] 137 mmol/L Normal 136-[address] [facility] Comment on above: Order Comment: Speci men Type: BLOOD SPECIMENOrdering Facility: [facility] Address: [address] [place] [address] Performed By: #### 2 4323-8 ####[facility] [id number] [place] [address] [place] Urea nitrogen [Mass/Vol] 49 mg/dL High 10-26 [facility] Comment on above: Order Comment: Speci men Type: BLOOD SPECIMENOrdering Facility: [facility] Address: [address] [place], [place] [address] Performed By: #### 2 4323-8 ####[facility] [id number] [place] [address] [place] Bacteria Ur Culton Bacteria identified Cx Nom (U) Normal [facility] Comment on above: Performed By: #### 6 30-4 ####[facility] LABCLIA [id number] [place] [address] [place] CNOVon 10-26-2024 CNOV Normal [facility] GLUCOSE, BLOOD (POC)on 10-26 Glucose [Mass/Vol] 115 mg/dL Abnormal 74 - 99 mg/dL [facility] Comment on above: Location:[facility], [address] [place] [address], [address] The Accu-Chek Inform II glucose meter has [...] review of laboratory results Abnormal [facility] NM PET/CT SKULL-THIGH SUBQon 10-26-2024 NM PET/CT [...] * Uptake Time: 58 minutes * Radiopharmaceutical: L15-Athjhrihjbhgoagqob (FDG) COMPARISON: PET/CT 06/30/2024 RESULT: REFERENCES: FDG [...] PET scan Metastases: No metabolically active metastases. 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 Electric Meter Installer: PSCMark Anthony Transcribe Date/Time: Oct 26 2024 4:06P Dictated by : ALONDRA MCCAIN MD This examination was interpreted and the report reviewed and electronically signed by: ALONDRA MCCAIN MD on Oct 26 2024 10:51PM [employer] [facility] Provider, [facility] - 10/26/2024 * * *Final Report* * [...] * Uptake Time: 58 minutes * Radiopharmaceutical: V56-Qujwlmotyaxefuqlvk (FDG) COMPARISON: PET/CT 06/30/2024 RESULT: REFERENCES: FDG [...] PET scan Metastases: No metabolically active metastases. 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-- W 18F-FDG IVOrdered By: Ccf Provider on 10-26-2024 [facility] UA DIP, URINE (POC)on 2024 BILIRUBIN UA (POCT) Negative Negative [facility] CLARITY UA (POCT) Slightly Cloudy Cl [facility] COLOR UA (POCT) Yellow [facility] GLUCOSE UA (POCT) 500 mg/dL Abnormal Negative [facility] Hemoglobin Ql (U) Large Abnormal Negative [facility] Interpretation and review of laboratory results Abnormal [facility] KETONE UA (POCT) Negative Negative mg/dL [facility] LEUKOCYTES UA (POCT) Small Abnormal Negative [facility] NITRITE UA (POCT) Negative Negative [facility] PH UA (POCT) 5.5 4.5 - 8.0 [facility] Protein Ql (U) 30 mg/dL Abnormal Negative [facility] SPECIFIC GRAVITY UA (POCT) 1.02 1.005 - 1.030 [facility] UROBILINOGEN UA (POCT) 0.2 Noemy l E.U./dL [facility] Location:[address], [place], [place], [id number] [place] [address] POINT OF CARE [facility] CNTHERAPYon 10-22-2024 CNTHERAPY OT/PT/Speech Visit (PNORCA) PAT SORTO ([id number]) 1960 F UPA Date Time Provider Department 10/22/24 2:15 PM NOE JACKSONWA Date Time Provider Department Center 10/22/2024 2:15 PM [id number], MIRANDA OSG Records Management [facility] N Reason for Visit: Physical Therapy [503] [...] by mouth at bedtime as needed. - BlueTarp FinancialTOUCH ULTRA PLUS TEST strp 1 Each two [...] Take 1 tablet by mouth once daily. [facility] CNTHERAPYon 10-21-2024 CNTHERAPY OT/PT/Speech Visit (PNORCA) PAT SORTO ([id number]) 1960 F UPA Date Time Provider Department 10/21/24 3[facility] Provider Department Center 10/21/2024 3:45 PM [id number], MIRANDA [facility] N Reason for Visit: Physical [...] by mouth at bedtime as needed. - [employer] ULTRA PLUS TEST strp 1 Each two [...] Take 1 tablet by mouth once daily. [facility] CNOVon 10-15-2024 [facility] CNTHERAPYon 10-15-2024 CNTHERAPY OT/PT/Speech Visit (PNORCA) PAT SORTO ([id number]) 1960 F UPA Date Time Provider Department 10/15/24 10:30 AM NOE JACKSON PNORCA Date Time Provider Department Center 10/15/2024 10:30 AM [id number], MIRANDA [facility] N Reason for Visit: Physical Therapy [503] [...] by mouth at bedtime as needed. - BlueTarp FinancialTOUCH ULTRA PLUS TEST strp 1 Each two [...] Take 1 tablet by mouth once daily. [facility] CNOVon 10-14-2024 CNOV [facility] CNOVon 10-13-2024 CNOV [facility] CNTHERAPYon 10-13-2024 CNTHERAPY OT/PT/Speech Visit (PNORCA) PAT SORTO ([id number]) 1960 F UPA Date Time Provider Department 10/13/24 9:45 AM NOE JACKSON Date Time Provider Department Center 10/13/2024 9:45 AM [id number], MIRANDA [facility] N Reason for Visit: Physical Therapy [503] [...] Take 1 tablet by mouth once daily. Liaison Inspection Laboratory Assistant: Addendum Therapy (PT/OT/Speech/Resp) ID: [id number] 10/13/2024 10:26 AM Author: NOE JACKSON Signed by NOE JACKSON TILT TRAY DRIVER on 10/13/2024 at 10:26 AM * * * This document replaces document [id number] * * * Document text: Program_ID:[id number] Access Code: [email or web address] URL: [email or web address] Date: 10-13-2024 Prepared By: Bobbi Vanegas Program [...] weekly - 1 sets - 3 reps [facility] THERAPY NTon 10-13-2024 THERAPY NT HNO ID: [id number] Author: NOE JACKSON PTA Service: ? Author Type: Cashier Tube Room Type: Therapy (PT/OT/Speech/Resp) Filed: 10/13/2024 10:26 Note Text: Program_ID:[id number] Access Code: [email or web address] URL: [email or web address] Date: 10-13-2024 Prepared By: Bobbi Vanegas Program [...] weekly - 1 sets - 3 reps [facility] [id number] 10-12-2024 [id number] HNO ID: [id number] Author: MILAGROS BROWN PT Service: ? Author Type: Physical Therapist Type: [id number] Filed: 10/12/2024 07:20 Note Text: [facility] Rehabilitation and Sports Therapy Physical Therapy Plan of Care Certification Patient Name: Pat Sorto : 1960 F #: [id number] Date: 10/07/2024 To: Micki Butler APRN.SECURITY GUARD DISPATCHER From Therapist: Milagros Brown PT RE: Patient [...] Patient to be seen for Therapeutic exercise (07558), Manual therapy (35371), Self-long term management (72175), Patient/Family/Caregive r Education, Therapeutic activities (64106) (lymphedema program) PLAN FOR NEXT VISIT: lymphedema program For further details regarding this patient refer to the Physical Therapy electronically documented visit dated 10/07/2024. Provider Attestation I have reviewed the treatment plan for Pat Angelita Sorto, [facility]# [id number] for the period of 10/07/24 -- 12/07/24, established on 10/07/2024. Signature certifies the need for therapy services. [facility] CNPNon 10-12-2024 CNPN Normal [facility] Bacteria Ur Culton 5 Bacteria identified Cx Nom (U) Abnormal [facility] Comment on above: Performed By: #### 6 30-4, 03892-3 ####[facility] LABCLIA [id number] [address] [place] CNTHERAPYon 10-07-2024 CNTHERAPY OT/PT/Speech Visit (PNORCA) PAT SORTO ([id number]) 1960 F UPA Date Time Provider Department 10/07/24 10:15 AM MILAGROS BROWN PNORCA Date Time Provider Department Center 10/07/2024 10:15 AM [id number], CAROL A PNORCA [facility] N Reason for Visit: PT Progress Note [...] by mouth at bedtime as needed. - BlueT[employer] FinancialTOUCH ULTRA PLUS TEST strp 1 Each two [...] 1 tablet by mouth once daily. Normal [facility] Comprehensive metabolic 2000 panelon 10-07-2024 Albumin [Mass/Vol] 3.6 g/dL Low 3.9-4.[address] [facility] Comment on above: Order Comment: Speci men Type: BLOOD SPECIMENOrdering Facility: [facility] Address: [address] [place] [address] Performed By: #### 2 4323-8 ####[facility] MILLWNCLIA [id number] [place] [address] [place] ALP [Catalytic activity/Vol] 57 U/L Normal 34-123 [facility] Comment on above: Order Comment: Speci men Type: BLOOD SPECIMENOrdering Facility: [facility] Address: [address] [place] [address] Performed By: #### 2 4323-8 ####[facility]CL[facility] [id number] [place] [address] [place] ALT [Catalytic activity/Vol] 10 U/L Normal 7-38 [facility] Comment on above: Order Comment: Speci men Type: BLOOD SPECIMENOrdering Facility: [facility] Address: [address] [place] [address] Performed By: #### 2 4323-8 ####[facility] [id number] [place] [address] [place] Anion gap [Moles/Vol] 12 mmol/L Normal 8-15 [facility] Comment on above: Order Comment: Speci men Type: BLOOD SPECIMENOrdering Facility: [facility] Address: [address] [place] [address] Performed By: #### 2 4323-8 ####[facility] MILLTOWNCLIA [id number] [place] [address] [place] AST [Catalytic activity/Vol] 19 U/L Normal 13-35 [facility] Comment on above: Order Comment: Speci men Type: BLOOD SPECIMENOrdering Facility: [facility] Address: [address] [place] [address] Performed By: #### 2 4323-8 ####[facility]ITALANN SCOTTASHAA [id number] [place] [address] [place] Bilirubin [Mass/Vol] 0.2 mg/dL Normal 0.2-1.3 [facility] Comment on above: Order Comment: Speci men Type: BLOOD SPECIMENOrdering Facility: [facility] Address: [address] [place] [address] Performed By: #### 2 4323-8 ####[facility]OS[facility]ITALROMELIA [id number] [place] [address] [place] Calcium [Mass/Vol] 9.6 mg/dL Normal 8.5-10.[address] [facility] Comment on above: Order Comment: Speci men Type: BLOOD SPECIMENOrdering Facility: [facility] Address: [address] [place] [address] Performed By: #### 2 4323-8 ####[facility] MAURYHAMPSHIRENIA [id number] [place] [address] [place] Chloride [Moles/Vol] 103 mmol/L Normal 98-107 [facility] Comment on above: Order Comment: Speci men Type: BLOOD SPECIMENOrdering Facility: [facility] Address: [address] [place] [address] Performed By: #### 2 4323-8 ####[facility]ITALWNCLIA [id number] [place] [address] [place] CO2 [Moles/Vol] 24 mmol/L Normal 22-30 [facility] Comment on above: Order Comment: Speci men Type: BLOOD SPECIMENOrdering Facility: [facility] Address: [address] [place] [address] Performed By: #### 2 4323-8 ####[facility]ITALNCLI [id number] [place] [address] [place] Creatinine [Mass/Vol] 1.87 mg/dL High 0.58-0.96 [facility] Comment on above: Order Comment: Speci leah Type: BLOOD SPECIMENOrdering Facility: [facility] Address: [address] [place] [address] Performed By: #### 2 4323-8 ####[facility] [id number] [place] [address] [place] Creatinine and Glomerular filtration rate.predicted panel (S/P/Bld) 30 mL/min/1.73m??? Low >=60 [facility] Comment on above: Order Comment: [facility] Type: BLOOD SPECIMENOrdering Facility: [facility] Address: [address] [place] [address] Result Comment: Sherlyn mated Glomerular Filtration Rate [...] actual GFR. Performed By: #### 2 4323-8 ####[facility] [id number] [place] [address] [place] Glucose [Mass/Vol] 82 mg/dL Normal 74-[address] [facility] Comment on above: Order Comment: Speci men Type: BLOOD SPECIMENOrdering Facility: [facility] Address: [address] [place] [address] Result Comment: The [place] [employer] (ADA) provides guidance for cutoff [...] Standards of Medical Care in Diabetes 2016, [place] [employer]. Diabetes Care. 2016.39(Suppl 1). Performed By: #### 2 4323-8 ####[facility] MILLTOWNCLIA [id number] [place] [address] [place] Potassium [Moles/Vol] 3.6 mmol/L Low 3.7-5.1 [facility] Comment on above: Order Comment: Speci men Type: BLOOD SPECIMENOrdering Facility: [facility] Address: [address] [place] [address] Performed By: #### 2 4323-8 ####[facility] HOSPITALCARLOSLIA [id number] [place] [address] [place] Protein [Mass/Vol] 6.8 g/dL Normal 6.3-8.[address] [facility] Comment on above: Order Comment: Kourtneyi leah Type: BLOOD SPECIMENOrdering Facility: [facility] Address: [address] [place] [address] Performed By: #### 2 4323-8 ####[facility] HOSPITALCARLOSLIA [id number] [place] [address] [place] Sodium [Moles/Vol] 139 mmol/L Normal 136-[address] [facility] Comment on above: Order Comment: Speci men Type: BLOOD SPECIMENOrdering Facility: [facility] Address: [address] [place] [address] Performed By: #### 2 4323-8 ####[facility]ITALWNCLIA [id number] [place] [address] [place] Urea nitrogen [Mass/Vol] 50 mg/dL High 7-21 [facility] Comment on above: Order Comment: Speci men Type: BLOOD SPECIMENOrdering Facility: [facility] Address: [address] [place] [address] Performed By: #### 2 4323-8 ####[facility] SHARAD LAINEZ [id number] [place] [address] [place] Urinalysis complete panel (U )on 10-07-2024 BACTERIA UL 1320.6 uL High Negative [facility] Comment on above: Order Comment: Speci men Type: URINE SPECIMENOrdering Facility: [facility] Address: [address] [place] [address] Performed By: #### 6 30-4, 05661-3 ####[facility] LABCLIA [id number] [place] [address] [place] Bilirubin Ql (U) Negative Normal Negative [facility] Comment on above: Order Comment: Speci men Type: URINE SPECIMENOrdering Facility: [facility] Address: [address] [place] [address] Performed By: #### 6 30-4, 70287-6 ####[facility] LABCLIA [id number] [place] [address] [place] Clarity (Unsp spec) Clear Normal Clear [facility] Comment on above: Order Comment: Speci men Type: URINE SPECIMENOrdering Facility: [facility] Address: [address] [place], [place] [address] Performed By: #### 6 30-4, 26580-4 ####[facility] LABCLIA [id number] [place] [address] [place] Color (U) Yellow Normal Yellow [facility] Comment on above: Order Comment: Speci men Type: URINE SPECIMENOrdering Facility: [facility] Address: [address] [place], [place] [address] Performed By: #### 6 30-4, 52749-7 ####[facility] LABCLIA [id number] [place] [address] [place] Epithelial cells LM.HPF (Urine sed) [#/Area] None Seen Normal [facility] Comment on above: Order Comment: Speci men Type: URINE SPECIMENOrdering Facility: [facility] Address: [address] [place] [address] Performed By: #### 6 30-4, 48235-6 ####[facility] LABCLIA [id number] [address] [place] Glucose Test strip (U) [Mass/Vol] Negative Normal Negative [facility] Comment on above: Order Comment: Speci men Type: URINE SPECIMENOrdering Facility: [facility] Address: [address] [place] [address] Performed By: #### 6 30-4, 90333-7 ####[facility] LABCLIA [id number] [place] [address] [place] Hemoglobin Ql (U) Trace Abnormal Negative [facility] Comment on above: Order Comment: Speci men Type: URINE SPECIMENOrdering Facility: [facility] Address: [address] [place] [address] Performed By: #### 6 30-4, 35652-4 ####[facility] LABCLIA [id number] [place] [address] [place] Hyaline casts (Urine sed) [#/Area] 1-3 /LPF Abnormal 0 /LPF [facility] Comment on above: Order Comment: Speci men Type: URINE SPECIMENOrdering Facility: [facility] Address: [address] [place] [address] Performed By: #### 6 30-4, 04865-8 ####[facility] LABCLIA [id number] [place] [address] [place] Ketones Ql (U) Negative Normal Negative [facility] Comment on above: Order Comment: Speci men Type: URINE SPECIMENOrdering Facility: [facility] Address: [address] [place] [address] Performed By: #### 6 30-4, 42676-2 ####[facility] LABCLIA [id number] [address], [facility] [place] Leukocyte esterase Test strip Ql (U) 2+ Abnormal Negative [facility] Comment on above: Order Comment: Speci men Type: URINE SPECIMENOrdering Facility: [facility] Address: [address] [place] [address] Performed By: #### 6 30-4, 96989-4 ####[facility] LABCLIA [id number] [address], [place] [address] [place] Nitrite Ql (U) Negative Normal Negative [facility] Comment on above: Order Comment: Speci men Type: URINE SPECIMENOrdering Facility: [facility] Address: [address] [place] [address] Performed By: #### 6 30-4, 66925-8 ####[facility] LABCLIA [id number] [address], [place] [address] [place] pH (U) 5.5 [pH] Normal <8.5 [facility] Comment on above: Order Comment: Speci men Type: URINE SPECIMENOrdering Facility: [facility] Address: [address] [place] [address] Performed By: #### 6 30-4, 36666-7 ####[facility] LABCLIA [id number] [facility] [address], [facility] [place] Protein (U) [Mass/Vol] 1+ Abnormal Negative [facility] Comment on above: Order Comment: Speci men Type: URINE SPECIMENOrdering Facility: [facility] Address: [address] [place] [address] Performed By: #### 6 30-4, 83635-8 ####[facility] LABCLIA [id number] [place] [address] [place] RBC LM.HPF (Urine sed) [#/Area] 3-5 /HPF Abnormal 0-2 /HPF [facility] Comment on above: Order Comment: Speci men Type: URINE SPECIMENOrdering Facility: [facility] Address: [address] [place] [address] Performed By: #### 6 30-4, 55175-0 ####[facility] LABIA [id number] [place] [address] [place] Specific gravity (U) [Rel density] 1.017 Normal 1.005-1.03 0 [facility] Comment on above: Order Comment: Speci men Type: URINE SPECIMENOrdering Facility: [facility] Address: [address] [place] [address] Performed By: #### 6 30-4, 91223-4 ####[facility] LABIA [id number] [address] [place] Urobilinogen Ql (U) 0.2 EU/dL Normal 0.2-1.0 EU/dL [facility] Comment on above: Order Comment: Speci men Type: URINE SPECIMENOrdering Facility: [facility] Address: [address] [place] [address] Performed By: #### 6 30-4, 99416-7 ####[facility]ITAL[facility] [id number] [place] [address] [place] WBC LM.HPF (Urine sed) [#/Area] /[HPF] Abnormal 0-5 /HPF [facility] Comment on above: Order Comment: Speci men Type: URINE SPECIMENOrdering Facility: [facility] Address: [address] [place] [address] Performed By: #### 6 30-4, 41886-3 ####[facility] LABIA [id number] [place] [address] [place] CNPNon 10-05-2024 [facility] 09-25-2024 [facility] Normal [facility] CNPNon 09-24-2024 [facility] CNTHERAPYon 09-24-2024 CNTHERAPY OT/PT/Speech Visit (PNORCA) PAT SORTO ([id number]) 1960 F UPA Date Time Provider Department 09/24/24 9:45 AM NOE JACKSON Date Time Provider Department Center 09/24/2024 9:45 AM [id number], [facility] Reason for Visit: Physical [...] 1 tablet by mouth once daily. Normal [facility] US KIDNEY/BLADDERon 09-24-19 US KIDNEY/BLADDER * * [...] Bladder: Incompletely distended. IMPRESSION: No acute findings. Electric Meter Installer: PSCB Transcribe Date/Time: Sep 23 2024 4:26P Dictated by : KEDAR ORTIZ MD This examination was interpreted and the report reviewed and electronically signed by: KEDAR ORTIZ MD on Sep 23 2024 4:29PM EST [id number] Normal [facility] US Kidney - bilateral and Ur inary bladderon 09-23-2024 IMPRESSION: No acute findings. Electric Meter Installer: [facility] Transcribe Date/Time: Sep 23 2024 4:26P Dictated by : KEDAR ORTIZ MD This examination was interpreted and the report reviewed and electronically signed by: KEDAR ORTIZ MD on Sep 23 2024 4:29PM EST [employer] * * *Final Report* * * DATE [...] shadowing calculus. -Lesion: None. Bladder: Incompletely distended. [facility]IOLOG[facility] SYNGO Provider, [facility] - 09/23/2024 * * *Final Report* * [...] Incompletely distended. IMPRESSION IMPRESSION: No acute findings. Electric Meter Installer: MARTÍNEZ Transcribe Date/Time: Sep 23 2024 4:26P Dictated by : KEDAR ORTIZ MD This examination was interpreted and the report reviewed and electronically signed by: KEDAR ORTIZ MD on Sep 23 2024 4:29PM EST [facility] Radiology Study observation (narrative) [facility] US Kidney - bilateral and Ur inary bladderOrdered By: Ccf Provider on 09-23-2024 [facility] ALBUMIN/CREATININE RATIO, UR INEon 09-22-2024 Albumin DL <= 20 mg/L (U) [Mass/Vol] 209.8 mg/L Normal [facility] Comment on above: Order Comment: Speci men Type: URINE SPECIMENOrdering Facility: [facility] Address: [address] [place] [address] Performed By: #### U ACR ####[facility] LABCLIA [id number] [place] [address] [place] Albumin/Creatinine (U) [Mass ratio] 86 mg/g High <30 [facility] Comment on above: Order Comment: Speci men Type: URINE SPECIMENOrdering Facility: [facility] Address: [address] [place] [address] Result Comment: Adul t Male and Female Nephrotic Criteria:<30 mg/g is considered normal to mildly iqzjhwska19-155 mg/g is considered moderately increased>300 mg/g is considered severely increasedKDIGO. (2013). KDIGO 2012 Clinical Practice Guideline for the Evaluation and Management of Chronic Kidney Disease. Official Journal of the International Society of Nephrology, 3(1), 1-150. Performed By: #### U ACR ####[facility] LABCLIA [id number] [address] [place] Creatinine (U) [Mass/Vol] 245.1 mg/dL Normal 20.0-300.0 [facility] Comment on above: Order Comment: Speci men Type: URINE SPECIMENOrdering Facility: [facility] Address: [address] [place] [address] Performed By: #### U ACR ####[facility] LABCLIA [id number] [address] [place] Bacteria Ur Culton 5 Bacteria identified Cx Nom (U) Abnormal [facility] Comment on above: Performed By: #### 6 30-4 ####[facility] LABIA [id number] [address] [place] CNOVon 09-22-2024 CNOV Normal [facility] CNPNon 09-22-2024 CNPN Normal [facility] CNTHERAPYon 09-22-2024 CNTHERAPY OT/PT/Speech Visit (PNORCA) PAT SORTO ([id number]) 1960 F UPA Date Time Provider Department 09/22/24 10:30 AM NOE JACKSON PNORCA Date Time Provider Department Center 09/22/2024 10:30 AM [id number], [facility] Reason for Visit: Physical [...] by mouth at bedtime as needed. - TeravacUCH ULTRA PLUS TEST strp 1 Each two [...] 1 tablet by mouth once daily. Normal [facility] Comprehensive metabolic 2000 panelon 09-22-2024 Albumin [Mass/Vol] 3.8 g/dL Low 3.9-4.[address] [facility] Comment on above: Order Comment: Speci men Type: BLOOD SPECIMENOrdering Facility: [facility] Address: [address] [place] [address] Performed By: #### 2 4323-8 ####[facility]ITAL[facility]CLIA [id number] [place] [address] [place]#### LIPNF ####[facility] LABCLIA [id number] [place] [address] [place] ALP [Catalytic activity/Vol] 57 U/L Normal 34-123 [facility] Comment on above: Order Comment: Speci men Type: BLOOD SPECIMENOrdering Facility: [facility] Address: [address] [place] [address] Performed By: #### 2 4323-8 ####[facility]ALLIA [id number] [place] [address] [place]#### LIPNF ####[facility] LABCLIA [id number] [address] [address] [place] ALT [Catalytic activity/Vol] 13 U/L Normal 7-38 [facility] Comment on above: Order Comment: Speci men Type: BLOOD SPECIMENOrdering Facility: [facility] Address: [address] [place] [address] Performed By: #### 2 4323-8 ####[facility] MILLWNCLIA [id number] [place] [address] [place]#### LIPNF ####[facility] LABCLIA [id number] [place] [address] [place] Anion gap [Moles/Vol] 11 mmol/L Normal 8-15 [facility] Comment on above: Order Comment: Speci men Type: BLOOD SPECIMENOrdering Facility: [facility] Address: [address] [place] [address] Performed By: #### 2 4323-8 ####[facility]ITALLIA [id number] [place] [address] [place]#### LIPNF ####[facility] LABCLIA [id number] [place] [address] [place] AST [Catalytic activity/Vol] 20 U/L Normal 13-35 [facility] Comment on above: Order Comment: Speci men Type: BLOOD SPECIMENOrdering Facility: [facility] Address: [address] [place] [address] Performed By: #### 2 4323-8 ####[facility]ITALNCLIA [id number] [place] [address] [place]#### LIPNF ####[facility] LABCLIA [id number] [place] [address] [place] Bilirubin [Mass/Vol] 0.3 mg/dL Normal 0.2-1.3 [facility] Comment on above: Order Comment: Speci men Type: BLOOD SPECIMENOrdering Facility: [facility] Address: [address] [place] [address] Performed By: #### 2 4323-8 ####[facility]ITALWNCLIA [id number] [place] [address] [place]#### LIPNF ####[facility] LABCLIA [id number] [address] [address] [place] Calcium [Mass/Vol] 9.5 mg/dL Normal 8.5-10.[address] [facility] Comment on above: Order Comment: Speci men Type: BLOOD SPECIMENOrdering Facility: [facility] Address: [address] [place] [address] Performed By: #### 2 4323-8 ####[facility] MILLTOWNCLIA [id number] [place] [address] [place]#### LIPNF ####[facility] LABCLIA [id number] [place] [address] [place] Chloride [Moles/Vol] 101 mmol/L Normal 98-107 [facility] Comment on above: Order Comment: Speci men Type: BLOOD SPECIMENOrdering Facility: [facility] Address: [address] [place] [address] Performed By: #### 2 4323-8 ####[facility]ITALWNCLIA [id number] [place] [address] [place]#### LIPNF ####[facility] LABCLIA [id number] [place] [address] [place] CO2 [Moles/Vol] 24 mmol/L Normal 22-30 [facility] Comment on above: Order Comment: Speci men Type: BLOOD SPECIMENOrdering Facility: [facility] Address: [address] [place], [place] [address] Performed By: #### 2 4323-8 ####[facility] MILLWNCLIA [id number] [place] [address] [place]#### LIPNF ####[facility] LABCLIA [id number] [place] [address] [place] Creatinine [Mass/Vol] 1.96 mg/dL High 0.58-0.96 [facility] Comment on above: Order Comment: Speci men Type: BLOOD SPECIMENOrdering Facility: [facility] Address: [address] [place] [address] Performed By: #### 2 4323-8 ####[facility] [id number] [place] [address] [place]#### LIPNF ####[facility]ITAL[facility] [id number] [place] [address] [place] Creatinine and Glomerular filtration rate.predicted panel (S/P/Bld) 28 mL/min/1.73m??? Low >=60 [facility] Comment on above: Order Comment: Sunny lynn Type: BLOOD SPECIMENOrdering Facility: [facility] Address: [address] [place] [address] Result Comment: Sherlyn mated Glomerular Filtration Rate [...] actual GFR. Performed By: #### 2 4323-8 ####[facility] [id number] [place] [address] [place]#### LIPNF ####[facility] [id number] [place] [address] [place] Glucose [Mass/Vol] 199 mg/dL High 74-[address] [facility] Comment on above: Order Comment: Kourtneyi leah Type: BLOOD SPECIMENOrdering Facility: [facility] Address: [address] [place] [address] Result Comment: The [place] Diabetes Association (ADA) provides guidance for cutoff [...] Standards of Medical Care in Diabetes 2016, [place] Diabetes Association. Diabetes Care. 2016.39(Suppl 1). Performed By: #### 2 4323-8 ####[facility] [id number] [place] [address] [place]#### LIPNF ####[facility] LABIA [id number] [place] [address] [place] Potassium [Moles/Vol] 3.6 mmol/L Low 3.7-5.1 [facility] Comment on above: Order Comment: Speci men Type: BLOOD SPECIMENOrdering Facility: [facility] Address: [address] [place] [address] Performed By: #### 2 4323-8 ####[facility] [id number] [place] [address] [place]#### LIPNF ####[facility] LABCLIA [id number] [place] [address] [place] Protein [Mass/Vol] 6.6 g/dL Normal 6.3-8.[address] [facility] Comment on above: Order Comment: Speci men Type: BLOOD SPECIMENOrdering Facility: [facility] Address: [address] [place] [address] Performed By: #### 2 4323-8 ####[facility] HOS[facility]ITALLIA [id number] [place] [address] [place]#### LIPNF ####[facility] LABCLIA [id number] [place] [id number] [place] Sodium [Moles/Vol] 136 mmol/L Normal 136-[address] [facility] Comment on above: Order Comment: Speci men Type: BLOOD SPECIMENOrdering Facility: [facility] Address: [address] [place] [address] Performed By: #### 2 4323-8 ####[facility] HOS[facility]ITALLIA [id number] [place] [address] [place]#### LIPNF ####[facility] LABCLIA [id number] [place] [address] [place] Urea nitrogen [Mass/Vol] 62 mg/dL High 7-21 [facility] Comment on above: Order Comment: Speci men Type: BLOOD SPECIMENOrdering Facility: [facility] Address: [address] [place] [address] Performed By: #### 2 4323-8 ####[facility]OS[facility]ITALLIA [id number] [place] [address] [place]#### LIPNF ####[facility] LABCLIA [id number] [address] [place] HbA1c (Bld)on 09-22-2024 Average glucose Estimated from glycated hemoglobin (Bld) [Mass/Vol] 174 mg/dL Normal [facility] Comment on above: Order Comment: Speci men Type: BLOOD SPECIMENOrdering Facility: [facility] Address: [address] [place] [address] Result Comment: eAG: (Estimated average glucose) is a calculated value from HgbA1c and is parts representative of the average blood glucose level in the last 2-3 month period. Performed By: #### 5 5454-3 ####[facility] LABCLIA [id number] [address] [place] HbA1c (Bld) [Mass fraction] 7.7 % High 4.3-5.6 [facility] Comment on above: Order Comment: Sunny lynn Type: BLOOD SPECIMENOrdering Facility: [facility] Address: [address] [place] [address] Result Comment: [place] Diabetes Association guidelines indicate that patients with HgbA1c in the range 5.7-6.4% are at increased risk for development of diabetes, and intervention by lifestyle modification may be beneficial. HgbA1c greater or equal to 6.5% is considered diagnostic of diabetes. Performed By: #### 5 5454-3 ####[facility] LABCLIA [id number] [place] [address] [place] LIPID PANEL, NONFASTINGon Cholesterol [Mass/Vol] 231 mg/dL High <200 [facility] Comment on above: Order Comment: Sunny lynn Type: BLOOD SPECIMENOrdering Facility: [facility] Address: [address] [place] [address] Result Comment: <200 mg/dL, Desirable 200-239 mg/dL, Borderline high>239 mg/dL, High Performed By: #### 2 4323-8 ####[facility]ITALWVALIA [id number] [address] [place]#### LIPNF ####[facility] LABCLIA [id number] [address] [place] HDL CHOLESTEROL, NF 29 mg/dL Low >[address] [facility] Comment on above: Order Comment: Sunny lynn Type: BLOOD SPECIMENOrdering Facility: [facility] Address: [address] [place] [address] Result Comment: 40-5 9 mg/dL, Acceptable>59 mg/dL, High: Negative risk factor for coronary heart disease<40 mg/dL, Low: Positive risk factor for coronary heart disease Performed By: #### 2 4323-8 ####[facility]ITALWNCLIA [id number] [place] [address] [place]#### LIPNF ####[facility] [id number] [address] STATES [facility] LDL CHOLESTEROL CALCULATED, NF 116 mg/dL High <100 [facility] Comment on above: Order Comment: Speci men Type: BLOOD SPECIMENOrdering Facility: [facility] Address: [address] [place] [address] Result Comment: <100 mg/dL, Optimal 100-129 mg/dL, Near optimal/above optimal 130-159 mg/dL, Borderline high 160-189 mg/dL, High>189 mg/dL, Very highSecondary prevention optimal LDL Cholesterol levels are recommended to be <70 mg/dLLDL cholesterol is calculated using the Fernandez-NIH equation. Performed By: #### 2 4323-8 ####[facility] [id number] [address] STATES [facility]#### LIPNF ####[facility] [id number] [address] STATES [facility] LDL/HDL RATIO, NF 4.00 mg/dL High <2.54 [facility] Comment on above: Order Comment: Speci men Type: BLOOD SPECIMENOrdering Facility: [facility] Address: [address] [place] [address] Result Comment: Refe rence:1. National Cholesterol Education Program ATP III Guideline At-A-Glance Quick Desk Reference: National Heart, Lung, and Blood [place]. National Institutes of Health. 2001: NIH Publication No. 01-3305.2. An International Atherosclerosis Society position paper: global recommendations for the management of dyslipidemia: executive summary, Atherosclerosis. 2014: 232(2):410-413. Performed By: #### 2 4323-8 ####[facility]ITALNCLI [id number] [address] [place]#### LIPNF ####[facility] LABCLIA [id number] [place] [address] [place] NON HDL CHOL, NF 202 mg/dL High <130 [facility] Comment on above: Order Comment: Speci men Type: BLOOD SPECIMENOrdering Facility: [facility] Address: [address] [place] [address] Result Comment: <130 mg/dL, Optimal 130-159 mg/dL, Near optimal/above optimal 160-189 mg/dL, Borderline high 190-219 mg/dL, High>219 mg/dL, Very highSecondary prevention optimal non HDL Cholesterol levels are recommended to be <100 mg/dL Performed By: #### 2 4323-8 ####[facility] HOS[facility]ITALLIA [id number] [place] [address] [place]#### LIPNF ####[facility] LABCLIA [id number] [place] [address] [place] T CHOL/HDL RATIO NF 7.97 mg/dL High <5.[address] [facility] Comment on above: Order Comment: Speci men Type: BLOOD SPECIMENOrdering Facility: [facility] Address: [address] [place] [address] Performed By: #### 2 4323-8 ####[facility]WNCLIA [id number] [place] [address] [place]#### LIPNF ####[facility] LABCLIA [id number] [place] [address] [place] TRIGLYCERIDES, NF 491 mg/dL High <150 [facility] Comment on above: Order Comment: Speci men Type: BLOOD SPECIMENOrdering Facility: [facility] Address: [address] [place] [address] Result Comment: <150 mg/dL, Normal 150-199 mg/dL, Borderline high 200-499 mg/dL, High>499 mg/dL, Very high Performed By: #### 2 4323-8 ####[facility]ITALNCLIA [id number] [place] [address] [place]#### LIPNF ####[facility] LABCLIA [id number] [address] [address] [place] VLDL CHOLESTEROL, NF 87 mg/dL High <30 [facility] Comment on above: Order Comment: Speci men Type: BLOOD SPECIMENOrdering Facility: [facility] Address: [address] [place] [address] Performed By: #### 2 4323-8 ####[facility] [id number] [place] [address] [place]#### LIPNF ####[facility] LABCLIA [id number] [place] [address] [place] UA DIP, URINE (POC)on 2024 BILIRUBIN UA (POCT) Negative Negative [facility] CLARITY UA (POCT) Clear [facility] COLOR UA (POCT) Yellow [facility] GLUCOSE UA (POCT) 250 mg/dL Abnormal Negative [facility] Hemoglobin Ql (U) Large Abnormal Negative [facility] Interpretation and review of laboratory results Abnormal [facility] KETONE UA (POCT) Negative Negative mg/dL [facility] LEUKOCYTES UA (POCT) Moderate Abnormal Negative [facility] NITRITE UA (POCT) Negative Negative [facility] PH UA (POCT) 5.5 4.5 - 8.0 [facility] Protein Ql (U) 30 mg/dL Abnormal Negative [facility] SPECIFIC GRAVITY UA (POCT) 1.02 1.005 - 1.030 [facility] UROBILINOGEN UA (POCT) 0.2 Noemy l E.U./dL [facility] Location:[facility], [address] [place] [address], [place], [place], [id number] [place] [address] POINT OF CARE [facility] Urinalysis complete panel (U )on 09-22-2024 Bacteria uL 1220.7 uL High - 941 uL [facility] Bilirubin Ql (U) Negative Negative [facility] Clarity (Unsp spec) Turbid Abnormal Clear [facility] Color (U) Yellow Yellow [facility] Epithelial cells LM.HPF (Urine sed) [#/Area] None Seen /HPF [facility] Glucose Test strip (U) [Mass/Vol] 1+ Abnormal Negative [facility] Hemoglobin Ql (U) 3+ Abnormal Negative [facility] Hyaline casts (Urine sed) [#/Area] 1-3 /LPF Abnormal 0 /LPF [facility] Interpretation and review of laboratory results Abnormal [facility] Ketones Ql (U) Negative Negative [facility] Leukocyte esterase Test strip Ql (U) 3+ Abnormal Negative [facility] Nitrite Ql (U) Negative Negative [facility] pH (U) 6 [pH] NINF - 8.5 [facility] Protein (U) [Mass/Vol] 1+ Abnormal Negative [facility] RBC LM.HPF (Urine sed) [#/Area] /[HPF] Abnormal 0-2 /HPF [facility] Specific gravity (U) [Rel density] 1.016 1.005 - 1.030 [facility] Urobilinogen Ql (U) 0.2 EU/dL 0.2-1.0 EU/dL [facility] WBC LM.HPF (Urine sed) [#/Area] /[HPF] Abnormal 0-5 /HPF [facility] This test was develo ped and its performance characteristics determined by [facility]'s [facility] Pathology and Laboratory Medicine [place] ([facility]). It has not been cleared or approved by the FDA. [facility] is regulated under CLIA as qualified to perform high-complexity testing. This test is used for clinical purposes. It should not be regarded as investigational or for research. [facility] BACTERIA UL 1220.7 uL High Negative [facility] Comment on above: Order Comment: Speci men Type: URINE SPECIMENOrdering Facility: [facility] Address: [address] [place] [address] Performed By: #### 2 4356-8 ####[facility] LABCLIA [id number] [place] [address] [place] Bilirubin Ql (U) Negative Normal Negative [facility] Comment on above: Order Comment: Speci men Type: URINE SPECIMENOrdering Facility: [facility] Address: [address] [place] [address] Performed By: #### 2 4356-8 ####[facility] LABCLIA [id number] [address] [address] [place] Clarity (Unsp spec) Turbid Abnormal Clear [facility] Comment on above: Order Comment: Speci men Type: URINE SPECIMENOrdering Facility: [facility] Address: [address] [place] [address] Performed By: #### 2 4356-8 ####[facility] LABCLIA [id number] [place] [address] [place] Color (U) Yellow Normal Yellow [facility] Comment on above: Order Comment: Speci men Type: URINE SPECIMENOrdering Facility: [facility] Address: [address] [place] [address] Performed By: #### 2 4356-8 ####[facility] LABCLIA [id number] [place] [address] [place] Epithelial cells LM.HPF (Urine sed) [#/Area] None Seen Normal [facility] Comment on above: Order Comment: Speci men Type: URINE SPECIMENOrdering Facility: [facility] Address: [address] [place] [address] Performed By: #### 2 4356-8 ####[facility] LABCLIA [id number] [address] [address] [place] Glucose Test strip (U) [Mass/Vol] 1+ Abnormal Negative [facility] Comment on above: Order Comment: Speci men Type: URINE SPECIMENOrdering Facility: [facility] Address: [address] [place] [address] Performed By: #### 2 4356-8 ####[facility] LABCLIA [id number] [address] [place] [address] [place] Hemoglobin Ql (U) 3+ Abnormal Negative [facility] Comment on above: Order Comment: Speci men Type: URINE SPECIMENOrdering Facility: [facility] Address: [address] [place] [address] Performed By: #### 2 4356-8 ####[facility] LABCLIA [id number] [address], [facility] [place] Hyaline casts (Urine sed) [#/Area] 1-3 /LPF Abnormal 0 /LPF [facility] Comment on above: Order Comment: Speci men Type: URINE SPECIMENOrdering Facility: [facility] Address: [address] [place] [address] Performed By: #### 2 4356-8 ####[facility] LABCLIA [id number] [address], [place] [address] [place] Ketones Ql (U) Negative Normal Negative [facility] Comment on above: Order Comment: Speci men Type: URINE SPECIMENOrdering Facility: [facility] Address: [address] [place] [address] Performed By: #### 2 4356-8 ####[facility] LABCLIA [id number] [address], [facility] [place] [place] Leukocyte esterase Test strip Ql (U) 3+ Abnormal Negative [facility] Comment on above: Order Comment: Speci men Type: URINE SPECIMENOrdering Facility: [facility] Address: [address] [place] [address] Performed By: #### 2 4356-8 ####[facility] LABCLIA [id number] [address], [facility] [place] Nitrite Ql (U) Negative Normal Negative [facility] Comment on above: Order Comment: Speci men Type: URINE SPECIMENOrdering Facility: [facility] Address: [address] [place] [address] Performed By: #### 2 4356-8 ####[facility] LABCLIA [id number] [place] [address] [place] pH (U) 6.0 [pH] Normal <8.5 [facility] Comment on above: Order Comment: Speci men Type: URINE SPECIMENOrdering Facility: [facility] Address: [address] [place] [address] Performed By: #### 2 4356-8 ####[facility] LABIA [id number] [place] [address] [place] Protein (U) [Mass/Vol] 1+ Abnormal Negative [facility] Comment on above: Order Comment: Speci men Type: URINE SPECIMENOrdering Facility: [facility] Address: [address] [place] [address] Performed By: #### 2 4356-8 ####[facility] LABIA [id number] [place] [address] [place] RBC LM.HPF (Urine sed) [#/Area] /[HPF] Abnormal 0-2 /HPF [facility] Comment on above: Order Comment: Speci men Type: URINE SPECIMENOrdering Facility: [facility] Address: [address] [place] [address] Performed By: #### 2 4356-8 ####[facility] LABIA [id number] [place] [address] [place] Specific gravity (U) [Rel density] 1.016 Normal 1.005-1.03 0 [facility] Comment on above: Order Comment: Speci men Type: URINE SPECIMENOrdering Facility: [facility] Address: [address] [place] [address] Performed By: #### 2 4356-8 ####[facility] LABIA [id number] [address] [place] Urobilinogen Ql (U) 0.2 EU/dL Normal 0.2-1.0 EU/dL [facility] Comment on above: Order Comment: Speci men Type: URINE SPECIMENOrdering Facility: [facility] Address: [address] [place] [address] Performed By: #### 2 4356-8 ####[facility]ITALIA [id number] [place] [address] [place] WBC LM.HPF (Urine sed) [#/Area] /[HPF] Abnormal 0-5 /HPF [facility] Comment on above: Order Comment: Speci men Type: URINE SPECIMENOrdering Facility: [facility] Address: [address] [place] [address] Performed By: #### 2 4356-8 ####[facility] LABIA [id number] [address] [place] CNTHERAPYon 09-11-2024 CNTHERAPY OT/PT/Speech Visit (PNORCA) PAT SORTO ([id number]) 1960 F [facility] Date Time Provider Department 09/11/24 9:00 AM NOE JACKSONWA Date Time Provider Department Center 09/11/2024 9:00 AM [id number], MIRANDA [facility] N Reason for Visit: Physical Therapy [503] [...] 1 tablet by mouth once daily. Normal [facility] Bacteria Ur Culton Bacteria identified Cx Nom (U) Abnormal [facility] Comment on above: Performed By: #### 6 30-4 ####[facility] LABCLIA [id number] [facility]Pr[facility] [facility] [place] [address] [place] CNOVon 09-07-2024 CNOV Normal [facility] UA DIP, URINE (POC)on 2024 BILIRUBIN UA (POCT) Negative Negative [facility] CLARITY UA (POCT) Cloudy [facility] COLOR UA (POCT) Yellow [facility] GLUCOSE UA (POCT) Negative Negative mg/dL [facility] Hemoglobin Ql (U) Large Abnormal Negative [facility] Interpretation and review of laboratory results Abnormal [facility] KETONE UA (POCT) Negative Negative mg/dL [facility] LEUKOCYTES UA (POCT) Small Abnormal Negative [facility] NITRITE UA (POCT) Negative Negative [facility] PH UA (POCT) 5.5 4.5 - 8.0 [facility] Protein Ql (U) 100 mg/dL Abnormal Negative [facility] SPECIFIC GRAVITY UA (POCT) 1.025 1.005 - 1.030 [facility] UROBILINOGEN UA (POCT) 0.2 Noemy l E.U./dL [facility] Location:[address], [address] [place] [address] POINT OF CARE [facility] CNOVon 09-03-2024 CNOV Normal [facility] CBC W Auto Differential pane l (Bld)on 09-01-2024 Basophils (Bld) [#/Vol] 0.06 10*3/uL Normal <0.11 [facility] Comment on above: Order Comment: Speci men Type: BLOOD SPECIMENOrdering Facility: [facility] Address: [address] [place] [address] Performed By: #### 5 7021-8 ####[facility] [id number] [place] [address] [place] Basophils/100 WBC (Bld) 0.8 % Normal [facility] Comment on above: Order Comment: Speci men Type: BLOOD SPECIMENOrdering Facility: [facility] Address: [address] [place] [address] Performed By: #### 5 7021-8 ####[facility] MAURYROMELIA [id number] [place] [address] [place] Differential cell count method Nom (Bld) Auto Normal [facility] Comment on above: Order Comment: Speci men Type: BLOOD SPECIMENOrdering Facility: [facility] Address: [address] [place] [address] Performed By: #### 5 7021-8 ####[facility] [id number] [place] [address] [place] Eosinophils (Bld) [#/Vol] 0.11 10*3/uL Normal <0.46 [facility] Comment on above: Order Comment: Speci men Type: BLOOD SPECIMENOrdering Facility: [facility] Address: [address] [place] [address] Performed By: #### 5 7021-8 ####[facility] [id number] [place] [address] [place] Eosinophils/100 WBC (Bld) 1.5 % Normal [facility] Comment on above: Order Comment: Speci men Type: BLOOD SPECIMENOrdering Facility: [facility] Address: [address] [place] [address] Performed By: #### 5 7021-8 ####[facility] HOSPITALLI [id number] [place] [address] [place] Erythrocyte distribution width (RBC) [Ratio] 13.7 % Normal 11.5-15.0 [facility] Comment on above: Order Comment: Speci men Type: BLOOD SPECIMENOrdering Facility: [facility] Address: [address] [place] [address] Performed By: #### 5 7021-8 ####[facility] HOSPITALLIA [id number] [place] [address] [place] Hematocrit (Bld) [Volume fraction] 33.7 % Low 36.0-46.0 [facility] Comment on above: Order Comment: Speci men Type: BLOOD SPECIMENOrdering Facility: [facility] Address: [address] [place] [address] Performed By: #### 5 7021-8 ####[facility] [id number] [place] [address] [place] Hemoglobin (Bld) [Mass/Vol] 11.4 g/dL Low 11.5-15.5 [facility] Comment on above: Order Comment: Speci men Type: BLOOD SPECIMENOrdering Facility: [facility] Address: [address] [place] [address] Performed By: #### 5 7021-8 ####[facility] [id number] [place] [address] [place] Immature granulocytes (Bld) [#/Vol] 0.06 10*3/uL Normal <0.10 [facility] Comment on above: Order Comment: Speci men Type: BLOOD SPECIMENOrdering Facility: [facility] Address: [address] [place] [address] Performed By: #### 5 7021-8 ####[facility] [id number] [place] [address] [place] Immature granulocytes/100 WBC (Bld) 0.8 % Normal [facility] Comment on above: Order Comment: Speci men Type: BLOOD SPECIMENOrdering Facility: [facility] Address: [address] [place] [address] Performed By: #### 5 7021-8 ####[facility]ITALNCLIA [id number] [place] [address] [place] Lymphocytes (Bld) [#/Vol] 1.73 10*3/uL Normal 1.00-4.00 [facility] Comment on above: Order Comment: Speci men Type: BLOOD SPECIMENOrdering Facility: [facility] Address: [address] [place] [address] Performed By: #### 5 7021-8 ####[facility] HOSPITALNCMOUNTAINSTAR [facility] [id number] [place] [address] [place] Lymphocytes/100 WBC (Bld) 23.4 % Normal [facility] Comment on above: Order Comment: Speci men Type: BLOOD SPECIMENOrdering Facility: [facility] Address: [address] [place] [address] Performed By: #### 5 7021-8 ####[facility] HOSPITALNCLI [id number] [place] [address] [place] MCH (RBC) [Entitic mass] 28.8 pg Normal 26.0-34.0 [facility] Comment on above: Order Comment: Speci men Type: BLOOD SPECIMENOrdering Facility: [facility] Address: [address] [place] [address] Performed By: #### 5 7021-8 ####[facility] HOSPITALNCLI [id number] [place] [address] [place] MCHC (RBC) [Mass/Vol] 33.8 g/dL Normal 30.5-36.0 [facility] Comment on above: Order Comment: Speci men Type: BLOOD SPECIMENOrdering Facility: [facility] Address: [address] [place] [address] Performed By: #### 5 7021-8 ####[facility] HOSPITALNCLI [id number] [place] [address] [place] MCV (RBC) [Entitic vol] 85.1 fL Normal 80.0-100.[address] [facility] Comment on above: Order Comment: Speci men Type: BLOOD SPECIMENOrdering Facility: [facility] Address: [address] [place] [address] Performed By: #### 5 7021-8 ####[facility] MAURYROMELIA [id number] [place] [address] [place] Monocytes (Bld) [#/Vol] 0.59 10*3/uL Normal <0.87 [facility] Comment on above: Order Comment: Speci men Type: BLOOD SPECIMENOrdering Facility: [facility] Address: [address] [place] [address] Performed By: #### 5 7021-8 ####[facility] HOSPITALYISSELA [id number] [place] [address] [place] Monocytes/100 WBC (Bld) 8.0 % Normal [facility] Comment on above: Order Comment: Speci men Type: BLOOD SPECIMENOrdering Facility: [facility] Address: [address] [place] [address] Performed By: #### 5 7021-8 ####[facility] HOSPITALNCKey [id number] [place] [address] [place] Neutrophils (Bld) [#/Vol] 4.83 10*3/uL Normal 1.45-7.50 [facility] Comment on above: Order Comment: Speci men Type: BLOOD SPECIMENOrdering Facility: [facility] Address: [address] [place] [address] Performed By: #### 5 7021-8 ####[facility] HOSPITALCARLOSLIA [id number] [place] [address] [place] Neutrophils/100 WBC (Bld) 65.5 % Normal [facility] Comment on above: Order Comment: Speci men Type: BLOOD SPECIMENOrdering Facility: [facility] Address: [address] [place] [address] Performed By: #### 5 7021-8 ####[facility] HOSPITALCARLOSLIA [id number] [place] [address] [place] Nucleated RBC (Bld) [#/Vol] 10*3/uL Normal <0.01 [facility] Comment on above: Order Comment: Speci men Type: BLOOD SPECIMENOrdering Facility: [facility] Address: [address] [place] [address] Performed By: #### 5 7021-8 ####[facility]ABIL[facility] HOSPITALLIA [id number] [place] [address] [place] Nucleated RBC/100 WBC (Bld) [Ratio] 0.0 /100 WBC Normal [facility] Comment on above: Order Comment: Speci men Type: BLOOD SPECIMENOrdering Facility: [facility] Address: [address] [place] [address] Performed By: #### 5 7021-8 ####[facility] HOSPITALNCLI [id number] [place] [address] [place] Platelet mean volume (Bld) [Entitic vol] 10.8 fL Normal 9.0-12.7 [facility] Comment on above: Order Comment: Speci men Type: BLOOD SPECIMENOrdering Facility: [facility] Address: [address] [place] [address] Performed By: #### 5 7021-8 ####[facility]HABIL[facility] HOSPITALLIA [id number] [place] [address] [place] Platelets (Bld) [#/Vol] 186 10*3/uL Normal 150-400 [facility] Comment on above: Order Comment: Speci men Type: BLOOD SPECIMENOrdering Facility: [facility] Address: [address] [place] [address] Performed By: #### 5 7021-8 ####[facility] HOSPITALNCLIA [id number] [place] [address] [place] RBC (Bld) [#/Vol] 3.96 10*6/uL Normal 3.90-5.[address] [facility] Comment on above: Order Comment: Speci men Type: BLOOD SPECIMENOrdering Facility: [facility] Address: [address] [place] [address] Performed By: #### 5 7021-8 ####[facility]DR[facility] HOSPITALNIA [id number] [place] [address] [place] WBC (Bld) [#/Vol] 7.38 10*3/uL Normal 3.70-11.[address] [facility] Comment on above: Order Comment: Speci men Type: BLOOD SPECIMENOrdering Facility: [facility] Address: [address] [place] [address] Performed By: #### 5 7021-8 ####[facility] HOSPITALNIA [id number] [place] [address] [place] Comprehensive metabolic 2000 panelon 09-01-2024 Albumin [Mass/Vol] 4.0 g/dL Normal 3.9-4.[address] [facility] Comment on above: Order Comment: Speci men Type: BLOOD SPECIMENOrdering Facility: [facility] Address: [address] [place] [address] Performed By: #### 2 4323-8 ####[facility]DR[facility] HOSPITALNIA [id number] [place] [address] [place] ALP [Catalytic activity/Vol] 66 U/L Normal 34-123 [facility] Comment on above: Order Comment: Speci men Type: BLOOD SPECIMENOrdering Facility: [facility] Address: [address] [place] [address] Performed By: #### 2 4323-8 ####[facility] HOSPITALNCLIA [id number] [place] [address] [place] ALT [Catalytic activity/Vol] 18 U/L Normal 7-38 [facility] Comment on above: Order Comment: Speci men Type: BLOOD SPECIMENOrdering Facility: [facility] Address: [address] [place] [address] Performed By: #### 2 4323-8 ####[facility] MAURYWNCLIA [id number] [place] [address] [place] Anion gap [Moles/Vol] 13 mmol/L Normal 8-15 [facility] Comment on above: Order Comment: Speci men Type: BLOOD SPECIMENOrdering Facility: [facility] Address: [address] [place] [address] Performed By: #### 2 4323-8 ####[facility] HOSPITALNCLIA [id number] [place] [address] [place] AST [Catalytic activity/Vol] 21 U/L Normal 13-35 [facility] Comment on above: Order Comment: Speci men Type: BLOOD SPECIMENOrdering Facility: [facility] Address: [address] [place] [address] Performed By: #### 2 4323-8 ####[facility] [id number] [place] [address] [place] Bilirubin [Mass/Vol] 0.2 mg/dL Normal 0.2-1.3 [facility] Comment on above: Order Comment: Speci men Type: BLOOD SPECIMENOrdering Facility: [facility] Address: [address] [place] [address] Performed By: #### 2 4323-8 ####[facility] HOSPITALNCLIA [id number] [place] [address] [place] Calcium [Mass/Vol] 9.6 mg/dL Normal 8.5-10.[address] [facility] Comment on above: Order Comment: Speci men Type: BLOOD SPECIMENOrdering Facility: [facility] Address: [address] [place] [address] Performed By: #### 2 4323-8 ####[facility] MILLTOWNCLIA [id number] [place] [address] [place] Chloride [Moles/Vol] 102 mmol/L Normal 98-107 [facility] Comment on above: Order Comment: Speci men Type: BLOOD SPECIMENOrdering Facility: [facility] Address: [address] [place] [address] Performed By: #### 2 4323-8 ####[facility] HOSPITALWNCLIA [id number] [place] [address] [place] CO2 [Moles/Vol] 23 mmol/L Normal 22-30 [facility] Comment on above: Order Comment: Speci men Type: BLOOD SPECIMENOrdering Facility: [facility] Address: [address] [place] [address] Performed By: #### 2 4323-8 ####[facility]IL[facility] HOSPITALLIA [id number] [place] [address] [place] Creatinine [Mass/Vol] 1.47 mg/dL High 0.58-0.96 [facility] Comment on above: Order Comment: Speci men Type: BLOOD SPECIMENOrdering Facility: [facility] Address: [address] [place] [address] Performed By: #### 2 4323-8 ####[facility] HOSPITALNCLIA [id number] [place] [address] [place] [facility] Creatinine and Glomerular filtration rate.predicted panel (S/P/Bld) 39 mL/min/1.73m??? Low >=60 [facility] Comment on above: Order Comment: Speci men Type: BLOOD SPECIMENOrdering Facility: [facility] Address: [address] [place] [address] Result Comment: Sherlyn mated Glomerular Filtration Rate [...] actual GFR. Performed By: #### 2 4323-8 ####[facility] HOSPITALWCARLOSLIA [id number] [place] [address] [place] Glucose [Mass/Vol] 261 mg/dL High 74-[address] [facility] Comment on above: Order Comment: Speci men Type: BLOOD SPECIMENOrdering Facility: [facility] Address: [address] [place], [place] [address] Result Comment: The [place] [employer] (ADA) provides guidance for cutoff [...] Standards of Medical Care in Diabetes 2016, [place] [employer]. Diabetes Care. 2016.39(Suppl 1). Performed By: #### 2 4323-8 ####[facility]ABIL[facility] HOSPITALLIA [id number] [place] [address] [place] Potassium [Moles/Vol] 4.1 mmol/L Normal 3.7-5.1 [facility] Comment on above: Order Comment: Speci men Type: BLOOD SPECIMENOrdering Facility: [facility] Address: [address] [place] [address] Performed By: #### 2 4323-8 ####[facility] HOSPITALWNCLIA [id number] [place] [address] [place] Protein [Mass/Vol] 7.3 g/dL Normal 6.3-8.[address] [facility] Comment on above: Order Comment: Speci men Type: BLOOD SPECIMENOrdering Facility: [facility] Address: [address] [place] [address] Performed By: #### 2 4323-8 ####[facility] HOSPITALNCMOUNTAINSTAR HEALTHCARE [id number] [place] [address] [place] Sodium [Moles/Vol] 138 mmol/L Normal 136-[address] [facility] Comment on above: Order Comment: Speci men Type: BLOOD SPECIMENOrdering Facility: [facility] Address: [address] [place] [address] Performed By: #### 2 4323-8 ####[facility] HOSPITALNCLI [id number] [place] [address] [place] Urea nitrogen [Mass/Vol] 44 mg/dL High 7-21 [facility] Comment on above: Order Comment: Speci men Type: BLOOD SPECIMENOrdering Facility: [facility] Address: [address] [place] [address] Performed By: #### 2 4323-8 ####[facility] HOSPITALNCLI [id number] [address] [place] [id number] 08-31-2024 [id number] HNO ID: [id number] Author: MILAGROS BROWN PT Service: ? Author Type: Physical Therapist Type: [id number] Filed: 08/31/2024 10:40 Note Text: [facility] Physical Therapy Plan of Care Certification Patient Name: Pat Sorto : 1960 [facility] #: [id number] Date: 08/27/2024 To: Mciki Butler APRN.SECURITY GUARD DISPATCHER From Therapist: Milagros Brown PT RE: Patient [...] Seroma of breast PLAN OF CARE: Assessment: aPt Sorto presents with diagnosis of s/p left [...] Planned: 8 Planned Treatment Interventions: Therapeutic exercise (88386), Manual therapy (70929), Self-long term management (89490), Patient/Family/Caregive r Education, Therapeutic activities (75098) (lymphedema program) PLAN FOR NEXT VISIT: lymphedema program Patient demonstrates good understanding of plan of care and treatment. The above goals and plan of care were discussed and agreed upon by patient/family. For further details regarding this patient refer to the Physical Therapy electronically documented visit dated 08/27/2024. Provider Attestation I have reviewed the treatment plan for Pat Sorto, CCF# [id number] for the period of 08/27/24 -- 10/26/24, established on 08/27/2024. Signature certifies the need for therapy services. [facility] CNTHERAPYon 08-27-2024 CNTHERAPY OT/PT/Speech Visit (PNORCA) PAT SORTO ([id number]) 1960 F [place] Date Time Provider Department 08/27/24 11:00 AM MILAGROS BROWN [facility] Date Time Provider Department Center 08/27/2024 11:00 AM [id number], CAROL A [facility] N Reason for Visit: PT Eval [747] Primary Visit Diagnosis:Lymphedema of left arm [I89.0] Other Visit Diagnoses:History of breast cancer [Z85.3] S/P breast reconstruction [Z98.890] Seroma of breast [N64.89] Allergies As of Date: 08/27/2024 Noted Allergy Reaction AMOXICILLIN 11/15/2022 2 - Rash Comments: rash arms trunk neck face, itching Chills Tolerates Ancef Date Reviewed: 08/11/2024 Reviewed by: Tatianna Crook [facility] - Fully Assessed Prescriptions as of 08/31/2024 [...] by mouth at bedtime as needed. - BlueT[employer] FinancialTOUCH ULTRA PLUS TEST strp 1 Each two [...] 1 tablet by mouth once daily. Normal [facility] CBC W Auto Differential pane l (Bld)on 08-04-2024 Basophils (Bld) [#/Vol] 0.04 10*3/uL Normal <0.11 [facility] Comment on above: Order Comment: Speci men Type: BLOOD SPECIMENOrdering Facility: [facility] Address: [address] [place] [address] Performed By: #### 5 7021-8 ####[facility] [id number] [place] [address] [place] Basophils/100 WBC (Bld) 0.7 % Normal [facility] Comment on above: Order Comment: Speci men Type: BLOOD SPECIMENOrdering Facility: [facility] Address: [address] [place] [address] Performed By: #### 5 7021-8 ####[facility] [id number] [place] [address] [place] Differential cell count method Nom (Bld) Auto Normal [facility] Comment on above: Order Comment: Speci men Type: BLOOD SPECIMENOrdering Facility: [facility] Address: [address] [place] [address] Performed By: #### 5 7021-8 ####[facility] [id number] [place] [address] [place] Eosinophils (Bld) [#/Vol] 0.09 10*3/uL Normal <0.46 [facility] Comment on above: Order Comment: Speci men Type: BLOOD SPECIMENOrdering Facility: [facility] Address: [address] [place] [address] Performed By: #### 5 7021-8 ####[facility] [id number] [place] [address] [place] Eosinophils/100 WBC (Bld) 1.6 % Normal [facility] Comment on above: Order Comment: Speci men Type: BLOOD SPECIMENOrdering Facility: [facility] Address: [address] [place] [address] Performed By: #### 5 7021-8 ####[facility] [id number] [place] [address] [place] Erythrocyte distribution width (RBC) [Ratio] 14.6 % Normal 11.5-15.0 [facility] Comment on above: Order Comment: Speci men Type: BLOOD SPECIMENOrdering Facility: [facility] Address: [address] [place] [address] Performed By: #### 5 7021-8 ####[facility] [id number] [place] [address] [place] Hematocrit (Bld) [Volume fraction] 35.1 % Low 36.0-46.0 [facility] Comment on above: Order Comment: Speci men Type: BLOOD SPECIMENOrdering Facility: [facility] Address: [address] [place] [address] Performed By: #### 5 7021-8 ####[facility] MAURYJaneeNCSADAF [id number] [place] [address] [place] Hemoglobin (Bld) [Mass/Vol] 11.8 g/dL Normal 11.5-15.5 [facility] Comment on above: Order Comment: Speci men Type: BLOOD SPECIMENOrdering Facility: [facility] Address: [address] [place] [address] Performed By: #### 5 7021-8 ####[facility] [id number] [place] [address] [place] Immature granulocytes (Bld) [#/Vol] 10*3/uL Normal <0.10 [facility] Comment on above: Order Comment: Speci men Type: BLOOD SPECIMENOrdering Facility: [facility] Address: [address] [place] [address] Performed By: #### 5 7021-8 ####[facility]ITALNCLIA [id number] [place] [address] [place] Immature granulocytes/100 WBC (Bld) 0.2 % Normal [facility] Comment on above: Order Comment: Speci men Type: BLOOD SPECIMENOrdering Facility: [facility] Address: [address] [place] [address] Performed By: #### 5 7021-8 ####[facility]OS[facility]ITALNCLIA [id number] [place] [address] [place] Lymphocytes (Bld) [#/Vol] 1.40 10*3/uL Normal 1.00-4.00 [facility] Comment on above: Order Comment: Speci men Type: BLOOD SPECIMENOrdering Facility: [facility] Address: [address] [place], [place] [address] Performed By: #### 5 7021-8 ####[facility]ITALNCLIA [id number] [place] [address] [place] Lymphocytes/100 WBC (Bld) 25.2 % Normal [facility] Comment on above: Order Comment: Speci men Type: BLOOD SPECIMENOrdering Facility: [facility] Address: [address] [place] [address] Performed By: #### 5 7021-8 ####[facility]ITALNCLIA [id number] [place] [address] [place] MCH (RBC) [Entitic mass] 28.6 pg Normal 26.0-34.0 [facility] Comment on above: Order Comment: Speci men Type: BLOOD SPECIMENOrdering Facility: [facility] Address: [address] [place] [address] Performed By: #### 5 7021-8 ####[facility] HOSPITALLIA [id number] [place] [address] [place] MCHC (RBC) [Mass/Vol] 33.6 g/dL Normal 30.5-36.0 [facility] Comment on above: Order Comment: Speci men Type: BLOOD SPECIMENOrdering Facility: [facility] Address: [address] [place] [address] Performed By: #### 5 7021-8 ####[facility]ITALNCLIA [id number] [place] [address] [place] MCV (RBC) [Entitic vol] 85.2 fL Normal 80.0-100.[address] [facility] Comment on above: Order Comment: Speci men Type: BLOOD SPECIMENOrdering Facility: [facility] Address: [address] [place] [address] Performed By: #### 5 7021-8 ####[facility]ITALNCM[facility] [id number] [place] [address] [place] Monocytes (Bld) [#/Vol] 0.39 10*3/uL Normal <0.87 [facility] Comment on above: Order Comment: Speci men Type: BLOOD SPECIMENOrdering Facility: [facility] Address: [address] [place] [address] Performed By: #### 5 7021-8 ####[facility] MILLWNCLIA [id number] [place] [address] [place] Monocytes/100 WBC (Bld) 7.0 % Normal [facility] Comment on above: Order Comment: Speci men Type: BLOOD SPECIMENOrdering Facility: [facility] Address: [address] [place] [address] Performed By: #### 5 7021-8 ####[facility] HOSPITALLIA [id number] [place] [address] [place] Neutrophils (Bld) [#/Vol] 3.63 10*3/uL Normal 1.45-7.50 [facility] Comment on above: Order Comment: Speci men Type: BLOOD SPECIMENOrdering Facility: [facility] Address: [address] [place] [address] Performed By: #### 5 7021-8 ####[facility] HOSPITALNCLIA [id number] [place] [address] [place] Neutrophils/100 WBC (Bld) 65.3 % Normal [facility] Comment on above: Order Comment: Speci men Type: BLOOD SPECIMENOrdering Facility: [facility] Address: [address] [place] [address] Performed By: #### 5 7021-8 ####[facility]ITALNCLIA [id number] [place] [address] [place] Nucleated RBC (Bld) [#/Vol] 10*3/uL Normal <0.01 [facility] Comment on above: Order Comment: Speci men Type: BLOOD SPECIMENOrdering Facility: [facility] Address: [address] [place] [address] Performed By: #### 5 7021-8 ####[facility] MAURYJaneeNCSADAF [id number] [place] [address] [place] Nucleated RBC/100 WBC (Bld) [Ratio] 0.0 /100 WBC Normal [facility] Comment on above: Order Comment: Speci men Type: BLOOD SPECIMENOrdering Facility: [facility] Address: [address] [place] [address] Performed By: #### 5 7021-8 ####[facility] HOSPITALNCLIKey [id number] [place] [address] [place] Platelet mean volume (Bld) [Entitic vol] 10.0 fL Normal 9.0-12.7 [facility] Comment on above: Order Comment: Speci men Type: BLOOD SPECIMENOrdering Facility: [facility] Address: [address] [place] [address] Performed By: #### 5 7021-8 ####[facility] HOSPITALNCLIA [id number] [place] [address] [place] Platelets (Bld) [#/Vol] 192 10*3/uL Normal 150-400 [facility] Comment on above: Order Comment: Speci men Type: BLOOD SPECIMENOrdering Facility: [facility] Address: [address] [place] [address] Performed By: #### 5 7021-8 ####[facility] HOSPITALNCLIA [id number] [place] [address] [place] RBC (Bld) [#/Vol] 4.12 10*6/uL Normal 3.90-5.[address] [facility] Comment on above: Order Comment: Speci men Type: BLOOD SPECIMENOrdering Facility: [facility] Address: [address] [place] [address] Performed By: #### 5 7021-8 ####[facility] MILLTORWNCLIA [id number] [place] [address] [place] WBC (Bld) [#/Vol] 5.56 10*3/uL Normal 3.70-11.[address] [facility] Comment on above: Order Comment: Speci men Type: BLOOD SPECIMENOrdering Facility: [facility] Address: [address] [place] [address] Performed By: #### 5 7021-8 ####[facility] MAURYOTRWNCLIA [id number] [place] [address] [place] Comprehensive metabolic 2000 panelon 08-04-2024 Albumin [Mass/Vol] 4.0 g/dL Normal 3.9-4.[address] [facility] Comment on above: Order Comment: Speci men Type: BLOOD SPECIMENOrdering Facility: [facility] Address: [address] [place] [address] Performed By: #### 2 4323-8 ####[facility] MAURYSIMONENCLIA [id number] [place] [address] [place] ALP [Catalytic activity/Vol] 67 U/L Normal 34-123 [facility] Comment on above: Order Comment: Speci men Type: BLOOD SPECIMENOrdering Facility: [facility] Address: [address] [place] [address] Performed By: #### 2 4323-8 ####[facility] MAURYTORWNCLIA [id number] [place] [address] [place] ALT [Catalytic activity/Vol] 16 U/L Normal 7-38 [facility] Comment on above: Order Comment: Speci men Type: BLOOD SPECIMENOrdering Facility: [facility] Address: [address] [place] [address] Performed By: #### 2 4323-8 ####[facility] MILLTOWNCLIA [id number] [place] [address] [place] Anion gap [Moles/Vol] 9 mmol/L Normal 8-15 [facility] Comment on above: Order Comment: Speci men Type: BLOOD SPECIMENOrdering Facility: [facility] Address: [address] [place] [address] Performed By: #### 2 4323-8 ####[facility] MILLTOWNCLIA [id number] [place] [address] [place] AST [Catalytic activity/Vol] 22 U/L Normal 13-35 [facility] Comment on above: Order Comment: Speci men Type: BLOOD SPECIMENOrdering Facility: [facility] Address: [address] [place] [address] Performed By: #### 2 4323-8 ####[facility] HOSPITALNCLIA [id number] [place] [address] [place] Bilirubin [Mass/Vol] 0.3 mg/dL Normal 0.2-1.3 [facility] Comment on above: Order Comment: Speci men Type: BLOOD SPECIMENOrdering Facility: [facility] Address: [address] [place] [address] Performed By: #### 2 4323-8 ####[facility] MILLWNCLIA [id number] [place] [address] [place] Calcium [Mass/Vol] 9.3 mg/dL Normal 8.5-10.[address] [facility] Comment on above: Order Comment: Speci men Type: BLOOD SPECIMENOrdering Facility: [facility] Address: [address] [place] [address] Performed By: #### 2 4323-8 ####[facility] MILLWNCLIA [id number] [place] [address] [place] Chloride [Moles/Vol] 105 mmol/L Normal 98-107 [facility] Comment on above: Order Comment: Speci men Type: BLOOD SPECIMENOrdering Facility: [facility] Address: [address] [place] [address] Performed By: #### 2 4323-8 ####[facility]ITALNCMOUNT[facility]STAR [facility]ALTH[facility] [id number] [place] [address] [place] CO2 [Moles/Vol] 27 mmol/L Normal 22-30 [facility] Comment on above: Order Comment: Speci men Type: BLOOD SPECIMENOrdering Facility: [facility] Address: [address] [place] [address] Performed By: #### 2 4323-8 ####[facility] [id number] [place] [address] [place] Creatinine [Mass/Vol] 1.06 mg/dL High 0.58-0.96 [facility] Comment on above: Order Comment: Speci men Type: BLOOD SPECIMENOrdering Facility: [facility] Address: [address] [place] [address] Performed By: #### 2 4323-8 ####[facility] [id number] [address] [facility] Creatinine and Glomerular filtration rate.predicted panel (S/P/Bld) 58 mL/min/1.73m??? Low >=60 [facility] Comment on above: Order Comment: Speci men Type: BLOOD SPECIMENOrdering Facility: [facility] Address: [address] [place] [address] Result Comment: Sherlyn mated Glomerular Filtration Rate [...] actual GFR. Performed By: #### 2 4323-8 ####[facility] MILLTOWNCLIA [id number] [place] [address] [place] Glucose [Mass/Vol] 150 mg/dL High 74-[address] [facility] Comment on above: Order Comment: Speci men Type: BLOOD SPECIMENOrdering Facility: [facility] Address: [address] [place], [place] [address] Result Comment: The [place] [employer] (ADA) provides guidance for cutoff [...] Standards of Medical Care in Diabetes 2016, [place] [employer]. Diabetes Care. 2016.39(Suppl 1). Performed By: #### 2 4323-8 ####[facility] MILLWNCLIA [id number] [place] [address] [place] Potassium [Moles/Vol] 4.1 mmol/L Normal 3.7-5.1 [facility] Comment on above: Order Comment: Speci men Type: BLOOD SPECIMENOrdering Facility: [facility] Address: [address] [place] [address] Performed By: #### 2 4323-8 ####[facility] MILLWNCLIA [id number] [place] [address] [place] Protein [Mass/Vol] 7.4 g/dL Normal 6.3-8.[address] [facility] Comment on above: Order Comment: Speci men Type: BLOOD SPECIMENOrdering Facility: [facility] Address: [address] [place] [address] Performed By: #### 2 4323-8 ####[facility]IL[facility] HOSPITALLIA [id number] [place] [address] [place] Sodium [Moles/Vol] 141 mmol/L Normal 136-[address] [facility] Comment on above: Order Comment: Speci men Type: BLOOD SPECIMENOrdering Facility: [facility] Address: [address] [place] [address] Performed By: #### 2 4323-8 ####[facility] MAURYWVALIA [id number] [place] [address] [place] Urea nitrogen [Mass/Vol] 30 mg/dL High 7-21 [facility] Comment on above: Order Comment: Speci men Type: BLOOD SPECIMENOrdering Facility: [facility] Address: [address] [place] [address] Performed By: #### 2 4323-8 ####[facility]IL[facility] HOSPITALLIA [id number] [place] [address] [place] Anion gap in Serum or Plasma Ordered By: Aurora Nata on 08-03-2024 Anion gap [Moles/Vol] 11 mmol/L 5-15 [facility] BUN/creatinine ratioOrdered By: Andrea Nata on 08-03-2024 Urea nitrogen/Creatinine [Mass ratio] 34.2 mg/mg High 10- [facility] Basic Metabolic Profile (BMP )on 08-03-2024 BUN/CRE 34.2 RATIO High 10- [facility] Comment on above: Performed By: #### L 500.2500 #### [facility] [address] [facility] [address] Calcium [Mass/Vol] 9.3 mg/dL Normal 7.6-11.0 [facility] Comment on above: Performed By: #### L 500.2500 #### [facility] [address] [place], [address] Chloride [Moles/Vol] 103 mmol/L Normal 98-108 [facility] Comment on above: Performed By: #### L 500.2500 #### [facility] [address] [place], [address] CO2 [Moles/Vol] 24.7 mmol/L Normal 21.0-32.0 [facility] Comment on above: Performed By: #### L 500.2500 #### [facility] [address] [place], [address] Creatinine [Mass/Vol] 0.84 mg/dL Normal 0.70-1.20 [facility] Comment on above: Performed By: #### L 500.2500 #### [facility] [address] [place], [address] GAP 11 Normal 5-15 [facility] Comment on above: Performed By: #### L 500.2500 #### [facility] [address] [place], [address] GFR/1.73 sq M.predicted among non-blacks MDRD (S/P/Bld) [Vol rate/Area] 77 mL/min/{1.73_m2} Normal >60 [facility] Comment on above: Result Comment: mL/m in/1.73m2 CKD-EPI Creatinine Equation (2020) Performed By: #### L 500.2500 #### [facility] [address] [place], [address] Glucose [Mass/Vol] 153 mg/dL High 70-99 [facility] Comment on above: Performed By: #### L 500.2500 #### [facility] [address] [place], [address] Potassium [Moles/Vol] 3.9 mmol/L Normal 3.3-5.1 [facility] Comment on above: Result Comment: Hemo lysis present, Results??could be affected. ?? Performed By: #### L 500.2500 #### [facility] [address] [place], [place], [address] Sodium [Moles/Vol] 139 mmol/L Normal 133-145 [facility] Comment on above: Performed By: #### L 500.2500 #### [facility] [address] [place], [place], [address] Urea nitrogen [Mass/Vol] 29 mg/dL High 4-19 [facility] Comment on above: Performed By: #### L 500.2500 #### [facility] [address] [place], [place], [id number] CNOVon 08-03-2024 CNOV Normal [facility] Carbon dioxide, total [Moles /volume] in Central venous bloodOrdered By: Andrea Peace on 08-03-2024 CO2 [Moles/Vol] 24.7 mmol/L 21.0-32.0 [facility] Chloride assayOrdered By: Silvino Peace on 08-03-2024 Chloride [Moles/Vol] 103 mmol/L 98-108 [facility] Glomerular filtration rate ( GFR) estimation/1.73 sq m using serum, plasma, or whole bOrdered By: Andrea Peace on 08-03-2024 GFR/1.73 sq M.predicted among non-blacks MDRD (S/P/Bld) [Vol rate/Area] 77 mL/min/{1.73_m2} >60 [facility] Comment on above: mL/min/1.73m2 CKD-EP I Creatinine Equation (2020) Potassium measurement (mass/ volume)Ordered By: Andrea Peace on 08-03-2024 Potassium (Unsp spec) [Mass/Vol] 3.9 mmol/L 3.3-5.1 [facility] Comment on above: Hemolysis present, R esults could be affected. Serum creatinine measurement (mass/volume)Ordered By: Andrea Peace on 08-03-2024 Creatinine [Mass/Vol] 0.84 mg/dL 0.70-1.20 [facility] Serum glucose measurement (m ass/volume)Ordered By: Andrea Peace on 08-03-2024 Glucose [Mass/Vol] 153 mg/dL High 70-99 [facility] Serum or plasma calcium ashley urement (mass/volume)Ordered By: Andrea Peace on 08-03-2024 Calcium [Mass/Vol] 9.3 mg/dL 7.6-11.0 [facility] Serum or plasma urea nitroge n measurement (mass/volume)Ordered By: Andrea Peace on 08-03-2024 Urea nitrogen [Mass/Vol] 29 mg/dL High 4-19 [facility] Sodium levelOrdered By: Chicho Peace on 08-03-2024 Sodium [Moles/Vol] 139 mmol/L 133-145 [facility] CNOVon 07-15-2024 CNOV Office Visit (ELIJAH ) PAT SORTO ([id number]) 1960 F [place] Date Time Provider Department 07/15/24 1:00 PM MICKI BUTLER During your visit today, we recorded the following information about you: Temperature 97 degrees Micki Butler APRN.[employer]ITY GUARD DISPATCHER 07/15/2024 1:31 PM Signed Plastic Surgery Post [...] course of doxycycline that was ordered at [facility]. Hx Radiation Therapy: Yes- completed 12/2017 Hx [...] (HCC) followed by Dr. Husam Hart in [place] PAST SURGICAL HISTORY Procedure Laterality Date ARTHRP ACETBLR/PROX FEM PROSTC AGRFT/ALGRFT Right 03/20/2019 Hip replacement, total ARTHRP KNE CONDYLEANDPLATU MEDIALANDLAT COMPARTMENTS Left 02/2016 BIOPSY BREAST OPEN INCISIONAL Left 2007 [facility] benign pathology per patient BREAST RECONSTRUCTION Left [...] tablet by mouth at bedtime as needed. [employer] FinancialTOUCH ULTRA PLUS TEST strp 1 Each two [...] breast flat (more content not included)... Normal [facility] CNPNon 07-10-2024 CNPN Normal [facility] CNOVSPon 07-09-2024 CNOVSP Normal [facility] ALBUMIN/CREATININE RATIO, UR INEon 07-08-2024 Albumin DL <= 20 mg/L (U) [Mass/Vol] 86.8 mg/L Normal [facility] Comment on above: Order Comment: Speci men Type: URINE SPECIMENOrdering Facility: [facility] Address: [address] [place], [place] [address] Performed By: #### U ACR ####[facility] LABCLIA [id number] [place] [address] [place] Albumin/Creatinine (U) [Mass ratio] 61 mg/g High <30 [facility] Comment on above: Order Comment: Speci men Type: URINE SPECIMENOrdering Facility: [facility] Address: [address] [place] [address] Result Comment: Adul t Male and Female Nephrotic Criteria:<30 mg/g is considered normal to mildly bvubfekwh55-203 mg/g is considered moderately increased>300 mg/g is considered severely increasedKDIGO. (2013). KDIGO 2012 Clinical Practice Guideline for the Evaluation and Management of Chronic Kidney Disease. Official Journal of the International Society of Nephrology, 3(1), 1-150. Performed By: #### U ACR ####[facility] LABIA [id number] [place] [address] [place] Creatinine (U) [Mass/Vol] 143.0 mg/dL Normal 20.0-300.0 [facility] Comment on above: Order Comment: Speci men Type: URINE SPECIMENOrdering Facility: [facility] Address: [address] [place] [address] Performed By: #### U ACR ####[facility]OSPITALIA [id number] [place] [address] [place] CBC W Auto Differential pane l (Bld)on 07-08-2024 Basophils (Bld) [#/Vol] 0.04 10*3/uL Normal <0.11 [facility] Comment on above: Order Comment: Speci men Type: BLOOD SPECIMENOrdering Facility: [facility] Address: [address] [place] [address] Performed By: #### 5 7021-8 ####[facility] HOSPITALKey [id number] [place] [address] [place] Basophils/100 WBC (Bld) 0.6 % Normal [facility] Comment on above: Order Comment: Speci men Type: BLOOD SPECIMENOrdering Facility: [facility] Address: [address] [place] [address] Performed By: #### 5 7021-8 ####[facility] MAURYHAMPSHIRENCLIA [id number] [place] [address] [place] Differential cell count method Nom (Bld) Auto Normal [facility] Comment on above: Order Comment: Speci men Type: BLOOD SPECIMENOrdering Facility: [facility] Address: [address] [place] [address] Performed By: #### 5 7021-8 ####[facility] HOSPITALNCLIA [id number] [place] [address] [place] Eosinophils (Bld) [#/Vol] 0.09 10*3/uL Normal <0.46 [facility] Comment on above: Order Comment: Speci men Type: BLOOD SPECIMENOrdering Facility: [facility] Address: [address] [place] [address] Performed By: #### 5 7021-8 ####[facility] [id number] [place] [address] [place] Eosinophils/100 WBC (Bld) 1.4 % Normal [facility] Comment on above: Order Comment: Speci men Type: BLOOD SPECIMENOrdering Facility: [facility] Address: [address] [place] [address] Performed By: #### 5 7021-8 ####[facility] HOSPITALNCLIA [id number] [place] [address] [place] Erythrocyte distribution width (RBC) [Ratio] 14.9 % Normal 11.5-15.0 [facility] Comment on above: Order Comment: Speci men Type: BLOOD SPECIMENOrdering Facility: [facility] Address: [address] [place] [address] Performed By: #### 5 7021-8 ####[facility] HOSPITALNCLIA [id number] [place] [address] [place] Hematocrit (Bld) [Volume fraction] 38.7 % Normal 36.0-46.0 [facility] Comment on above: Order Comment: Speci men Type: BLOOD SPECIMENOrdering Facility: [facility] Address: [address] [place] [address] Performed By: #### 5 7021-8 ####[facility] HOSPITALYISSEL [id number] [place] [address] [place] Hemoglobin (Bld) [Mass/Vol] 13.3 g/dL Normal 11.5-15.5 [facility] Comment on above: Order Comment: Speci men Type: BLOOD SPECIMENOrdering Facility: [facility] Address: [address] [place] [address] Performed By: #### 5 7021-8 ####[facility] HOSPITALCARLOSMOUNTAINSTAR HEALTHCARE [id number] [place] [address] [place] Immature granulocytes (Bld) [#/Vol] 10*3/uL Normal <0.10 [facility] Comment on above: Order Comment: Speci men Type: BLOOD SPECIMENOrdering Facility: [facility] Address: [address] [place] [address] Performed By: #### 5 7021-8 ####[facility] HOSPITALASHAA [id number] [place] [address] [place] Immature granulocytes/100 WBC (Bld) 0.2 % Normal [facility] Comment on above: Order Comment: Speci men Type: BLOOD SPECIMENOrdering Facility: [facility] [facility] Address: [address] [place] [address] Performed By: #### 5 7021-8 ####[facility] HOSPITALLIA [id number] [place] [address] [place] Lymphocytes (Bld) [#/Vol] 1.72 10*3/uL Normal 1.00-4.00 [facility] Comment on above: Order Comment: Speci men Type: BLOOD SPECIMENOrdering Facility: [facility] Address: [address] [place] [address] Performed By: #### 5 7021-8 ####[facility] [id number] [place] [address] [place] Lymphocytes/100 WBC (Bld) 27.4 % Normal [facility] Comment on above: Order Comment: Speci men Type: BLOOD SPECIMENOrdering Facility: [facility] Address: [address] [place] [address] Performed By: #### 5 7021-8 ####[facility] [id number] [place] [address] [place] MCH (RBC) [Entitic mass] 28.7 pg Normal 26.0-34.0 [facility] Comment on above: Order Comment: Speci men Type: BLOOD SPECIMENOrdering Facility: [facility] Address: [address] [place] [address] Performed By: #### 5 7021-8 ####[facility] [id number] [place] [address] [place] MCHC (RBC) [Mass/Vol] 34.4 g/dL Normal 30.5-36.0 [facility] Comment on above: Order Comment: Speci men Type: BLOOD SPECIMENOrdering Facility: [facility] Address: [address] [place] [address] Performed By: #### 5 7021-8 ####[facility] [id number] [place] [address] [place] MCV (RBC) [Entitic vol] 83.4 fL Normal 80.0-100.[address] [facility] Comment on above: Order Comment: Speci men Type: BLOOD SPECIMENOrdering Facility: [facility] Address: [address] [place] [address] Performed By: #### 5 7021-8 ####[facility] MILLTOWNCLIA [id number] [place] [address] [place] Monocytes (Bld) [#/Vol] 0.44 10*3/uL Normal <0.87 [facility] Comment on above: Order Comment: Speci men Type: BLOOD SPECIMENOrdering Facility: [facility] Address: [address] [place] [address] Performed By: #### 5 7021-8 ####[facility] MILLWNCLIA [id number] [place] [address] [place] Monocytes/100 WBC (Bld) 7.0 % Normal [facility] Comment on above: Order Comment: Speci men Type: BLOOD SPECIMENOrdering Facility: [facility] Address: [address] [place] [address] Performed By: #### 5 7021-8 ####[facility] HOSPITALNCLIA [id number] [place] [address] [place] Neutrophils (Bld) [#/Vol] 3.98 10*3/uL Normal 1.45-7.50 [facility] Comment on above: Order Comment: Speci men Type: BLOOD SPECIMENOrdering Facility: [facility] Address: [address] [place] [address] Performed By: #### 5 7021-8 ####[facility] MILLTOWNCLIA [id number] [place] [address] [place] Neutrophils/100 WBC (Bld) 63.4 % Normal [facility] Comment on above: Order Comment: Speci men Type: BLOOD SPECIMENOrdering Facility: [facility] Address: [address] [place] [address] Performed By: #### 5 7021-8 ####[facility] MILLTOWNCLIA [id number] [place] [address] [place] Nucleated RBC (Bld) [#/Vol] 10*3/uL Normal <0.01 [facility] Comment on above: Order Comment: Speci men Type: BLOOD SPECIMENOrdering Facility: [facility] Address: [address] [place] [address] Performed By: #### 5 7021-8 ####[facility] HOSPITALNIA [id number] [place] [address] [place] Nucleated RBC/100 WBC (Bld) [Ratio] 0.0 /100 WBC Normal [facility] Comment on above: Order Comment: Speci men Type: BLOOD SPECIMENOrdering Facility: [facility] Address: [address] [place] [address] Performed By: #### 5 7021-8 ####[facility] HOSPITALNCKey [id number] [place] [address] [place] Platelet mean volume (Bld) [Entitic vol] 11.1 fL Normal 9.0-12.7 [facility] Comment on above: Order Comment: Speci men Type: BLOOD SPECIMENOrdering Facility: [facility] Address: [address] [place] [address] Performed By: #### 5 7021-8 ####[facility] HOSPITALNCSADAF [id number] [place] [address] [place] Platelets (Bld) [#/Vol] 152 10*3/uL Normal 150-400 [facility] Comment on above: Order Comment: Speci men Type: BLOOD SPECIMENOrdering Facility: [facility] Address: [address] [place] [address] Result Comment: No c lot detected. Performed By: #### 5 7021-8 ####[facility] HOSPITALNCLIKey [id number] [place] [address] [place] RBC (Bld) [#/Vol] 4.64 10*6/uL Normal 3.90-5.[address] [facility] Comment on above: Order Comment: Speci men Type: BLOOD SPECIMENOrdering Facility: [facility] Address: [address] [place] [address] Performed By: #### 5 7021-8 ####[facility]PITALWNCLIA [id number] [place] [address] [place] WBC (Bld) [#/Vol] 6.28 10*3/uL Normal 3.70-11.[address] [facility] Comment on above: Order Comment: Speci men Type: BLOOD SPECIMENOrdering Facility: [facility] Address: [address] [place] [address] Performed By: #### 5 7021-8 ####[facility] HOSPITALNCLIA [id number] [place] [address] [place] Comprehensive metabolic 2000 panelon 07-08-2024 Albumin [Mass/Vol] 4.1 g/dL Normal 3.9-4.[address] [facility] Comment on above: Order Comment: Speci men Type: BLOOD SPECIMENOrdering Facility: [facility] Address: [address] [place] [address] Performed By: #### 2 4323-8 ####[facility] HOSPITALNCLIA [id number] [place] [address] [place] ALP [Catalytic activity/Vol] 70 U/L Normal 34-123 [facility] Comment on above: Order Comment: Speci men Type: BLOOD SPECIMENOrdering Facility: [facility] Address: [address] [place] [address] Performed By: #### 2 4323-8 ####[facility] HOSPITALNCLIA [id number] [place] [address] [place] ALT [Catalytic activity/Vol] 12 U/L Normal 7-38 [facility] Comment on above: Order Comment: Speci men Type: BLOOD SPECIMENOrdering Facility: [facility] Address: [address] [place] [address] Performed By: #### 2 4323-8 ####[facility] MILLTOWNCLIA [id number] [place] [address] [place] Anion gap [Moles/Vol] 8 mmol/L Normal 8-15 [facility] Comment on above: Order Comment: Speci men Type: BLOOD SPECIMENOrdering Facility: [facility] Address: [address] [place] [address] Performed By: #### 2 4323-8 ####[facility] MILLWNCLIA [id number] [place] [address] [place] AST [Catalytic activity/Vol] 16 U/L Normal 13-35 [facility] Comment on above: Order Comment: Speci men Type: BLOOD SPECIMENOrdering Facility: [facility] Address: [address] [place] [address] Performed By: #### 2 4323-8 ####[facility] MILLTOWNCLIA [id number] [place] [address] [place] Bilirubin [Mass/Vol] 0.3 mg/dL Normal 0.2-1.3 [facility] Comment on above: Order Comment: Speci men Type: BLOOD SPECIMENOrdering Facility: [facility] Address: [address] [place] [address] Performed By: #### 2 4323-8 ####[facility] MILLTOWNCLIA [id number] [place] [address] [place] Calcium [Mass/Vol] 9.6 mg/dL Normal 8.5-10.[address] [facility] Comment on above: Order Comment: Speci men Type: BLOOD SPECIMENOrdering Facility: [facility] Address: [address] [place] [address] Performed By: #### 2 4323-8 ####[facility] HOSPITALWNCLIA [id number] [place] [address] [place] Chloride [Moles/Vol] 99 mmol/L Normal 98-107 [facility] Comment on above: Order Comment: Speci men Type: BLOOD SPECIMENOrdering Facility: [facility] Address: [address] [place] [address] Performed By: #### 2 4323-8 ####[facility] HOSPITALLIA [id number] [place] [address] [place] CO2 [Moles/Vol] 28 mmol/L Normal 22-30 [facility] Comment on above: Order Comment: Speci men Type: BLOOD SPECIMENOrdering Facility: [facility] Address: [address] [place] [address] Performed By: #### 2 4323-8 ####[facility] [id number] [place] [address] [place] Creatinine [Mass/Vol] 1.16 mg/dL High 0.58-0.96 [facility] Comment on above: Order Comment: Speci men Type: BLOOD SPECIMENOrdering Facility: [facility] Address: [address] [place] [address] Performed By: #### 2 4323-8 ####[facility]IL[facility] HOSPITALLIA [id number] [place] [address] [place] [facility] Creatinine and Glomerular filtration rate.predicted panel (S/P/Bld) 52 mL/min/1.73m??? Low >=60 [facility] Comment on above: Order Comment: Speci men Type: BLOOD SPECIMENOrdering Facility: [facility] Address: [address] [place] [address] Result Comment: Sherlyn mated Glomerular Filtration Rate [...] actual GFR. Performed By: #### 2 4323-8 ####[facility] HOSPITALWNCLIA [id number] [place] [address] [place] Glucose [Mass/Vol] 216 mg/dL High 74-[address] [facility] Comment on above: Order Comment: Speci men Type: BLOOD SPECIMENOrdering Facility: [facility] Address: [address] [place], [place] [address] Result Comment: The [place] Diabetes Association (ADA) provides guidance for cutoff [...] Standards of Medical Care in Diabetes 2016, [place] [employer] Association. Diabetes Care. 2016.39(Suppl 1). Performed By: #### 2 4323-8 ####[facility] HOSPITALNCLIA [id number] [place] [address] [place] Potassium [Moles/Vol] 4.0 mmol/L Normal 3.7-5.1 [facility] Comment on above: Order Comment: Speci men Type: BLOOD SPECIMENOrdering Facility: [facility] Address: [address] [place] [address] Performed By: #### 2 4323-8 ####[facility] [id number] [place] [address] [place] Protein [Mass/Vol] 7.7 g/dL Normal 6.3-8.[address] [facility] Comment on above: Order Comment: Speci men Type: BLOOD SPECIMENOrdering Facility: [facility] Address: [address] [place] [address] Performed By: #### 2 4323-8 ####[facility] [id number] [place] [address] [place] Sodium [Moles/Vol] 135 mmol/L Low 136-[address] [facility] Comment on above: Order Comment: Speci men Type: BLOOD SPECIMENOrdering Facility: [facility] Address: [address] [place] [address] Performed By: #### 2 4323-8 ####[facility] [id number] [place] [address] [place] Urea nitrogen [Mass/Vol] 45 mg/dL High 7-21 [facility] Comment on above: Order Comment: Speci men Type: BLOOD SPECIMENOrdering Facility: [facility] Address: [address] [place] [address] Performed By: #### 2 4323-8 ####[facility] [id number] [place] [address] [place] HbA1c (Bld)on 07-08-2024 Average glucose Estimated from glycated hemoglobin (Bld) [Mass/Vol] 148 mg/dL Normal [facility] Comment on above: Order Comment: Speci men Type: BLOOD SPECIMENOrdering Facility: [facility] Address: [address] [place] [address] Result Comment: eAG: (Estimated average glucose) is a calculated value from HgbA1c and is parts representative of the average blood glucose level in the last 2-3 month period. Performed By: #### 5 5454-3 ####[facility] LABCLIA [id number] [place] [address] [place] HbA1c (Bld) [Mass fraction] 6.8 % High 4.3-5.6 [facility] Comment on above: Order Comment: Speci men Type: BLOOD SPECIMENOrdering Facility: [facility] Address: [address] [place] [address] Result Comment: [place] Diabetes Association guidelines indicate that patients with HgbA1c in the range 5.7-6.4% are at increased risk for development of diabetes, and intervention by lifestyle modification may be beneficial. HgbA1c greater or equal to 6.5% is considered diagnostic of diabetes. Performed By: #### 5 5454-3 ####[facility] LABCLIA [id number] [place] [address] [place] LIPID PANEL, NONFASTINGon Cholesterol [Mass/Vol] 247 mg/dL High <200 [facility] Comment on above: Order Comment: Sunny lynn Type: BLOOD SPECIMENOrdering Facility: [facility] Address: [address] [place] [address] Result Comment: <200 mg/dL, Desirable 200-239 mg/dL, Borderline high>239 mg/dL, High Performed By: #### L IPNF ####[facility] LABCLIA [id number] [place] [address] [place] HDL CHOLESTEROL, NF 39 mg/dL Low >[address] [facility] Comment on above: Order Comment: Sunny men Type: BLOOD SPECIMENOrdering Facility: [facility] Address: [address] [place] [address] Result Comment: 40-5 9 mg/dL, Acceptable>59 mg/dL, High: Negative risk factor for coronary heart disease<40 mg/dL, Low: Positive risk factor for coronary heart disease Performed By: #### L IPNF ####[facility] LABCLIA [id number] [place] [address] [place] LDL CHOLESTEROL, NF 162 mg/dL High <[address] [facility] Comment on above: Order Comment: Sunny men Type: BLOOD SPECIMENOrdering Facility: [facility] Address: [address] [place] [address] Result Comment: <100 mg/dL, Optimal 100-129 mg/dL, Near optimal/above optimal 130-159 mg/dL, Borderline high 160-189 mg/dL, High>189 mg/dL, Very highSecondary prevention optimal LDL Cholesterol levels are recommended to be < 70 mg/dL Performed By: #### L IPNF ####[facility] LABCLIA [id number] [address] STATES OF HEATHER LDL/HDL RATIO, NF 4.15 mg/dL High <2.54 [facility] Comment on above: Order Comment: Speci men Type: BLOOD SPECIMENOrdering Facility: [facility] Address: [address] [place] [address] Result Comment: Refe yobani:1. National Cholesterol Education Program ATP III Guideline At-A-Glance Quick Desk Reference: National Heart, Lung, and Blood [place]. National Institutes of Health. 2001: NIH Publication No. 01-3305.2. An International Atherosclerosis Society position paper: global recommendations for the management of dyslipidemia: executive summary, Atherosclerosis. 2014: 232(2):410-413. Performed By: #### L IPNF ####[facility] LABIA [id number] [address] OF HEATHER NON HDL CHOL, NF 208 mg/dL High <130 [facility] Comment on above: Order Comment: Sunny lynn Type: BLOOD SPECIMENOrdering Facility: [facility] Address: [address] [place] [address] Result Comment: <130 mg/dL, Optimal 130-159 mg/dL, Near optimal/above optimal 160-189 mg/dL, Borderline high 190-219 mg/dL, High>219 mg/dL, Very highSecondary prevention optimal non HDL Cholesterol levels are recommended to be <100 mg/dL Performed By: #### L IPNF ####[facility] LABCLIA [id number] [address] OF HEATHER T CHOL/HDL RATIO NF 6.33 mg/dL High <5.[address] [facility] Comment on above: Order Comment: Speci men Type: BLOOD SPECIMENOrdering Facility: [facility] Address: [address] [place] [address] Performed By: #### L IPNF ####[facility] LABCLIA [id number] [place] [address] [place] TRIGLYCERIDES, NF 230 mg/dL High <150 [facility] Comment on above: Order Comment: Speci men Type: BLOOD SPECIMENOrdering Facility: [facility] Address: [address] [place] [address] Result Comment: <150 mg/dL, Normal 150-199 mg/dL, Borderline high 200-499 mg/dL, High>499 mg/dL, Very high Performed By: #### L IPNF ####[facility] LABCLIA [id number] [place] [address] [place] VLDL CHOLESTEROL, NF 46 mg/dL High <30 [facility] Comment on above: Order Comment: Speci men Type: BLOOD SPECIMENOrdering Facility: [facility] Address: [address] [place] [address] Performed By: #### L IPNF ####[facility] LABCLIA [id number] [place] [address] [place] US THYROID/PARATHYROIDon US THYROID/PARATHYROID Normal [facility] CNPNon 07-07-2024 CNPN Normal [facility] CNOVon 07-06-2024 CNOV Normal [facility] Cardiology Visit Reporton Cardiology Visit Report [facility] [address] [place], [place] [address] OFFICE VISIT Date of Service: 07/02/24 MR#: [id number] Acct: [id number] Name: PAT SORTO Rep #: [id number] : 1960 Provider: Dr. Andrea Peace MD Age/Sex: 64/F Location: [facility] Status: Signed HPI HPI History of Present [...] Source Monitor Intake Visit Reasons: 8 M Epic Specialist Required: No Accompanied by: Self Is patient [...] and we (more content not included)... Normal [facility] GLUCOSE, BLOOD (POC)on 06-30 Glucose [Mass/Vol] 134 mg/dL Abnormal 74 - 99 mg/dL [facility] Comment on above: Location:[facility] [place], [place], [address] The Accu-Chek Inform II glucose meter has [...] review of laboratory results Abnormal [facility] NM PET/CT SKULL-THIGH SUBQon 06-30-2024 NM PET/CT [...] * Uptake Time: 54 minutes * Radiopharmaceutical: D31-Rwofdxzctkcxidlcvg (FDG) COMPARISON: 06/30/2024 CORRELATION: No relevant prior [...] recently performed. * Chronic changes, as described. Electric Meter Installer: [facility]ITALMark Anthony Transcribe Date/Time: Jul 01 2024 10:58P Dictated by : LAMIN HARRINGTON MD This examination was interpreted and the report reviewed and electronically signed by: LAMIN HARRINGTON MD on Jul 02 2024 12:27AM EST [id number] Normal [facility] Bacteria Wnd Culton 06-26-19 25 Bacteria identified Cx Nom (Wound) CULTURE, WOUND: No growth GRAM STAIN: No organisms seen No Polymorphonuclear Leukocytes Normal [facility] Comment on above: Performed By: #### 6 462-6 ####[facility] LABCLIA [id number] [place] [address] [place] CNOVon 06-25-2024 CNOV Normal [facility] CNOVon 06-05-2024 CNOV Normal [facility] CNOVon 06-04-2024 CNOV Normal [facility] Basic metabolic 2000 panelon 06-03-2024 Anion gap [Moles/Vol] 11 mmol/L Normal 8-15 [facility] Comment on above: Order Comment: Speci men Type: BLOOD SPECIMENOrdering Facility: [facility] Address: [address] [place] [address] Performed By: #### 2 4321-2 ####[facility] MILLTOWNCLIA [id number] [place] [address] [place] Calcium [Mass/Vol] 10.1 mg/dL Normal 8.5-10.[address] [facility] Comment on above: Order Comment: Speci men Type: BLOOD SPECIMENOrdering Facility: [facility] Address: [address] [place] [address] Performed By: #### 2 4321-2 ####[facility] MILLTOWNCLIA [id number] [place] [address] [place] Chloride [Moles/Vol] 104 mmol/L Normal 98-107 [facility] Comment on above: Order Comment: Speci men Type: BLOOD SPECIMENOrdering Facility: [facility] Address: [address] [place] [address] Performed By: #### 2 4321-2 ####[facility] MILLTOWNCLIA [id number] [place] [address] [place] CO2 [Moles/Vol] 27 mmol/L Normal 22-30 [facility] Comment on above: Order Comment: Speci men Type: BLOOD SPECIMENOrdering Facility: [facility] Address: [address] [place] [address] Performed By: #### 2 4321-2 ####[facility] MILLTOWNCLIA [id number] [place] [address] [place] Creatinine [Mass/Vol] 1.15 mg/dL High 0.58-0.96 [facility] Comment on above: Order Comment: Speci men Type: BLOOD SPECIMENOrdering Facility: [facility] Address: [address] [place] [address] Performed By: #### 2 4321-2 ####[facility] MILLTOWNCLIA [id number] [place] [address] [place] Creatinine and Glomerular filtration rate.predicted panel (S/P/Bld) 53 mL/min/1.73m??? Low >=60 [facility] Comment on above: Order Comment: Sunny lynn Type: BLOOD SPECIMENOrdering Facility: [facility] Address: [address] [place] [address] Result Comment: Sherlyn mated Glomerular Filtration Rate [...] actual GFR. Performed By: #### 2 4321-2 ####[facility] [id number] [place] [address] [place] Glucose [Mass/Vol] 103 mg/dL High 74-[address] [facility] Comment on above: Order Comment: Sunny lynn Type: BLOOD SPECIMENOrdering Facility: [facility] Address: [address] [place] [address] Result Comment: The [place] Diabetes Association (ADA) provides guidance for cutoff [...] Standards of Medical Care in Diabetes 2016, [place] [employer]. Diabetes Care. 2016.39(Suppl 1). Performed By: #### 2 4321-2 ####[facility] [id number] [place] [address] [place] Potassium [Moles/Vol] 4.0 mmol/L Normal 3.7-5.1 [facility] Comment on above: Order Comment: Speci men Type: BLOOD SPECIMENOrdering Facility: [facility] Address: [address] [place] [address] Performed By: #### 2 4321-2 ####[facility] [id number] [place] [address] [place] Sodium [Moles/Vol] 142 mmol/L Normal 136-[address] [facility] Comment on above: Order Comment: Speci men Type: BLOOD SPECIMENOrdering Facility: [facility] Address: [address] [place] [address] Performed By: #### 2 4321-2 ####[facility] [id number] [place] [address] [place] Urea nitrogen [Mass/Vol] 27 mg/dL High 7-21 [facility] Comment on above: Order Comment: Speci men Type: BLOOD SPECIMENOrdering Facility: [facility] Address: [address] [place] [address] Performed By: #### 2 4321-2 ####[facility] [id number] [place] [address] [place] TSH SerPl-aCncon 06-03-2024 TSH Qn 2.770 m[IU]/L Normal 0.270-4.20 0 [facility] Comment on above: Order Comment: Speci men Type: BLOOD SPECIMENOrdering Facility: [facility] Address: [address] [place] [address] Performed By: #### 3 016-3 ####[facility] LABORATORYCLIA [id number] [place] [address] [place] CNOVon 05-29-2024 CNOV Normal [facility] CNOVon 05-27-2024 CNOV Normal [facility] CNCOon 05-26-2024 CNCO Letter Text Normal [facility] CNOVon 05-26-2024 CNOV Normal [facility] CNPNon 05-26-2024 CNPN Normal [facility] CNOVon 05-25-2024 CNOV Normal [facility] 12 Lead EKGon 05-21-2024 12 Lead EKG [facility] Cardi[facility] Services [address] [place] [address] 12 Lead EKG 05/21/24 1155 MR#: [id number] Acct: [id number] Name: PAT SORTO Rep #: [id number] : 1960 64 From: Jada Manuel MD [...] Borderline ECG Confirmed by EDUARDO NARAYAN, MIKAELA ([id number]), assistant production editor SERENITY CARLSON ([id number]) on 05/25/2024 8:06:33 AM Referred By: Confirmed By: MIKAELA MANUEL MD 05/25/24 0806 Date Jada Manuel MD CC: Dr. Jacinta Rivas MD; Dr. Rai Sterling DO Signed Normal [facility] Basic Metabolic Profile (BMP )on 05-21-2024 BUN/CRE 18.3 RATIO Normal 10-20 [facility] Comment on above: Performed By: #### L 100.0100, L300.3900, L300.4310, L500.2500 #### [facility] [address] [place], [address] CA,Total 9.2 mg/dL Normal 8.5-10.1 [facility] Comment on above: Performed By: #### L 100.0100, L300.3900, L300.4310, L500.2500 #### [facility] [address] [place], [address] Chloride [Moles/Vol] 106 mmol/L Normal 98-107 [facility] Comment on above: Performed By: #### L 100.0100, L300.3900, L300.4310, L500.2500 #### [facility] [address] [place], [address] CO2 [Moles/Vol] 23.0 mmol/L Normal 21.0-32.0 [facility] Comment on above: Performed By: #### L 100.0100, L300.3900, L300.4310, L500.2500 #### [facility] [address] [place], [address] Creatinine [Mass/Vol] 1.04 mg/dL High 0.55-1.02 [facility] Comment on above: Result Comment: The validity of the calculated GFR GFRAA in patients over 70 years has not been determined. Clinical correlation is essential. Performed By: #### L 100.0100, L300.3900, L300.4310, L500.2500 #### [facility] [address] [place], [address] ECRCL 58.10 ml/min Normal [facility] Comment on above: Performed By: #### L 100.0100, L300.3900, L300.4310, L500.2500 #### [facility] [address] [place], [address] EST GFR - AA 68 mL/min Normal >60 [facility] Comment on above: Result Comment: Afri can Eritrean GFR Calc Performed By: #### L 100.0100, L300.3900, L300.4310, L500.2500 #### [facility] [address] [place], [address] GAP 8 Normal 5-15 [facility] Comment on above: Performed By: #### L 100.0100, L300.3900, L300.4310, L500.2500 #### [facility] [address] [place], [address] GFR/1.73 sq M.predicted among non-blacks MDRD (S/P/Bld) [Vol rate/Area] 57 mL/min/{1.73_m2} Low >60 [facility] Comment on above: Result Comment: Non- GFR Calc Performed By: #### L 100.0100, L300.3900, L300.4310, L500.2500 #### [facility] [address] [place], [address] Glucose [Mass/Vol] 200 mg/dL High 74-106 [facility] Comment on above: Result Comment: Gluc ose result greater than or equal to 200 mg/dL suggests DIABETES MELLITUS per A.D.A. criteria. Performed By: #### L 100.0100, L300.3900, L300.4310, L500.2500 #### [facility] [address] [place], [address] Potassium [Moles/Vol] 3.6 mmol/L Normal 3.5-5.1 [facility] Comment on above: Performed By: #### L 100.0100, L300.3900, L300.4310, L500.2500 #### [facility] [address] [place], [address] Sodium [Moles/Vol] 137 mmol/L Normal 136-145 [facility] Comment on above: Performed By: #### L 100.0100, L300.3900, L300.4310, L500.2500 #### [facility] [address] [place], [address] Urea nitrogen [Mass/Vol] 19 mg/dL High 7-18 [facility] Comment on above: Performed By: #### L 100.0100, L300.3900, L300.4310, L500.2500 #### [facility] [address] [place], [address] CBC W/Diff, Automatedon 02-04 10-2024 Absolute Lymph 1.74 X10 3/uL Normal 0.83-4.51 [facility] Comment on above: Performed By: #### L 100.0100, L300.3900, L300.4310, L500.2500 #### [facility] [address] [place], [address] Absolute Neut 8.2 X10 3/uL High 2.0-7.7 [facility] Comment on above: Performed By: #### L 100.0100, L300.3900, L300.4310, L500.2500 #### [facility] [address] [place], [address] Basophils/100 WBC (Bld) 0.7 % Normal 0-1 [facility] Comment on above: Performed By: #### L 100.0100, L300.3900, L300.4310, L500.2500 #### [facility] [address] [place], [address] Eosinophils/100 WBC (Bld) 0.5 % Normal 0-5 [facility] Comment on above: Performed By: #### L 100.0100, L300.3900, L300.4310, L500.2500 #### [facility] [address] [place], [address] Erythrocyte distribution width (RBC) [Ratio] 13.2 % Normal 11.6-14.6 [facility] Comment on above: Performed By: #### L 100.0100, L300.3900, L300.4310, L500.2500 #### [facility] [address] [place], [address] Hematocrit (Bld) [Volume fraction] 34.0 % Low 37-47 [facility] Comment on above: Performed By: #### L 100.0100, L300.3900, L300.4310, L500.2500 #### [facility] [address] [place], [address] Hemoglobin (Bld) [Mass/Vol] 10.9 g/dL Low 12.0-15.0 [facility] Comment on above: Performed By: #### L 100.0100, L300.3900, L300.4310, L500.2500 #### [facility] [address] [place], [address] IG% 1.300 High 0.0-0.9 [facility] Comment on above: Result Comment: IG% - Immature Granulocytes (promyelocytes, myelocytes and metamyelocytes) > 1% indicates that a LEFT SHIFT is Present. Performed By: #### L 100.0100, L300.3900, L300.4310, L500.2500 #### [facility] [address] [place], [address] Lymphocytes/100 WBC (Bld) 15.6 % Low 19-41 [facility] Comment on above: Performed By: #### L 100.0100, L300.3900, L300.4310, L500.2500 #### [facility] [address] [place], [address] MCH (RBC) [Entitic mass] 27.1 pg Normal 27.0-32.0 [facility] Comment on above: Performed By: #### L 100.0100, L300.3900, L300.4310, L500.2500 #### [facility] [address] [place], [address] MCHC (RBC) [Mass/Vol] 32.1 g/dL Normal 32-36 [facility] Comment on above: Performed By: #### L 100.0100, L300.3900, L300.4310, L500.2500 #### [facility] [address] [place], [address] MCV (RBC) [Entitic vol] 84.6 fL Normal 81-99 [facility] Comment on above: Performed By: #### L 100.0100, L300.3900, L300.4310, L500.2500 #### [facility] [address] [place], [address] Monocytes/100 WBC (Bld) 8.9 % Normal 0-10 [facility] Comment on above: Performed By: #### L 100.0100, L300.3900, L300.4310, L500.2500 #### [facility] [address] [place], [address] Neutrophils/100 WBC (Bld) 73.0 % High 47-70 [facility] Comment on above: Performed By: #### L 100.0100, L300.3900, L300.4310, L500.2500 #### [facility] [address] [place], [address] Nucleated RBC (Bld) [#/Vol] 0 10*3/uL Normal 0-5 [facility] Comment on above: Performed By: #### L 100.0100, L300.3900, L300.4310, L500.2500 #### [facility] [address] [place], [address] Platelet mean volume (Bld) [Entitic vol] 10.2 fL Normal 6.2-12.0 [facility] Comment on above: Performed By: #### L 100.0100, L300.3900, L300.4310, L500.2500 #### [facility] [address] [place], [address] Platelets (Bld) [#/Vol] 298 10*3/uL Normal 150-450 [facility] Comment on above: Performed By: #### L 100.0100, L300.3900, L300.4310, L500.2500 #### [facility] [address] [place], [address] RBC (Bld) [#/Vol] 4.02 10*6/uL Low 4.2-5.4 [facility] Comment on above: Performed By: #### L 100.0100, L300.3900, L300.4310, L500.2500 #### [facility] [address] [place], [address] RDW SD 40.3 fl Normal 35.1-43.9 [facility] Comment on above: Performed By: #### L 100.0100, L300.3900, L300.4310, L500.2500 #### [facility] [address] [place], [address] WBC (Bld) [#/Vol] 11.2 10*3/uL High 4.4-11.0 [facility] Comment on above: Performed By: #### L 100.0100, L300.3900, L300.4310, L500.2500 #### [facility] [address] [place], [address] CTA Chest W/WO Contraston CTA Chest W/WO Contrast [facility] Imaging Services [address] [place] [address] CTA Chest W/WO Contrast MR#: [id number] Acct: [id number] Name: PAT SORTO Rep #: [id number] : 1960 F 64 From: Wil cox MD PCP: Dr. Jacinta Rivas MD Status: REG ER Study: CTA Chest W/WO Contrast Date of Exam: 05/21/24 Exam# [id number] Ordering Dr: Rai Sterling DO PROCEDURE: CTA [...] use of iterative reconstruction technique). Reading Location: [place] [address] CC: Dr. Jacinta Rivas MD; Dr. Rai Sterling DO Electric Meter Installer: Signed Normal [facility] Chest 1 View (Portable)on Chest 1 View (Portable) [facility] Imaging Services [address] [place] [id number] Chest 1 View (Portable) MR#: [id number] Acct: [id number] Name: PAT SORTO Rep #: [id number] : 1960 F 64 From: [employer] [place] PCP: Dr. Jacinta Rivas MD Status: REG ER Study: Chest 1 View (Portable) Date of Exam: 05/21/24 Exam# [id number] Ordering Dr: Rai Sterling DO PROCEDURE: CHEST [...] range for age and technique. Reading Location: [address] CC: Dr. Jacinta Rivas MD; Dr. Rai Sterling DO Electric Meter Installer: Signed Normal [facility] D-Dimer Quantitative (DVT/PE )on 05-21-2024 D-DIMER QUANT 1.50 FEU/ug/m Invalid Interpretation Code 0.27-0.49 [facility] Comment on above: Result Comment: D-Di brii ELEVATED (>0.49): Additional studies and clinical assessments are indicated to conclude diagnosis of: Deep Vein Thrombosis (DVT) or Pulmonary Embolism (PE) [facility] Jess Magallon. RESULTS READ BACK BY SAME. Performed By: #### L 300.5465 #### [facility] [address] [place], [address] Emergency Department Summary on 05-21-2024 Emergency Department Summary [facility] Medical Records Department [address] [place] [address] Emergency Department Summary 05/21/24 MR#: [id number] Acct: [id number] Name: PAT SORTOE Rep #: [id number] : 1960 64 From: Rai Odom PCP: [...] therapy. She is followed by Dr. Carrasco. [facility] Medical History Acute kidney injury Chemotherapy induced [...] Pulse Ox (more content not included)... Normal [facility] Partial Thromboplast Timeon 05-21-2024 aPTT Coag (Bld) [Time] 26.7 s Normal 24.1-36.2 [facility] Comment on above: Performed By: #### L 100.0100, L300.3900, L300.4310, L500.2500 #### [facility] [address] [place], [address] Prothrombin Time w/INRon INR Coag (PPP) [Relative time] 1.0 {INR} Normal [facility] Comment on above: Performed By: #### L 100.0100, L300.3900, L300.4310, L500.2500 #### [facility] [address] [place], [address] PT Coag (PPP) [Time] 13.2 s Normal 11.7-14.9 [facility] Comment on above: Performed By: #### L 100.0100, L300.3900, L300.4310, L500.2500 #### [facility] [address] [place], [address] CNPNon 05-19-2024 CNPN Normal [facility] ANES POSTPROC EVALon 025 ANES POSTPROC EVAL Normal [facility] ANES PRE-OPon 05-18-2024 ANES PRE-OP Normal [facility] BRIEF OP NOTon 05-18-2024 BRIEF OP NOT Normal [facility] GLUCOSE, BLOOD (POC)on 05-18 Glucose [Mass/Vol] 116 mg/dL Abnormal 74 - 99 mg/dL [facility] Comment on above: Location:[facility], [address] [place], [address] The Accu-Chek Inform II glucose meter has [...] review of laboratory results Abnormal [facility] Glucose [Mass/Vol] 130 mg/dL Abnormal 74 - 99 mg/dL [facility] Comment on above: Location:[facility], [address] [place], [address] The Accu-Chek Inform II glucose meter has [...] review of laboratory results Abnormal [facility] OPERATIVE NOon 05-18-2024 OPERATIVE NO Normal [facility] OPERATIVE NO Normal [facility] Pathology biopsy report Rommel (Tiss)on 05-18-2024 CASE REPORT Normal [facility] Comment on above: Order Comment: Speci men Type: TISSUE SPECIMENOrdering Facility: [facility] Address: [address] [place] [address] Result Comment: Surg ica Pathology Report Case: [id number] Provider: Micki Marcelino MD Collected: 05/18/2024 11:44 AMOrdering Location: Ambulatory Surgery Received: 05/18/2024 12:56 PMPathologist: David Irene MDSpecimens: A) - Skin, Excision, left chest excision of nodule B) - Breast Implant, Left, left breast implant with capsule C) - Skin, Wide Excision, left breast wide excision inframammory fold recurrence Performed By: #### 6 6121-5 ####[facility] LABIA [id number] [address] [place] CLINICAL HISTORY Normal [facility] Comment on above: Order Comment: Speci leah Type: TISSUE SPECIMENOrdering Facility: [facility] Address: [address] [place] [address] Result Comment: Pre- op diagnosis:Malignant neoplasm of lower-outer quadrant of left breast of female, estrogen receptor positive (HCC) [C50.512, Z17.0] Performed By: #### 6 6121-5 ####[facility] [id number] [address] [place] DIAGNOSIS COMMENT Normal [facility] Comment on above: Order Comment: Sunny lynn Type: TISSUE SPECIMENOrdering Facility: [facility] Address: [address] [place] [address] Result Comment: Part 1 - Invasive carcinoma [...] have been reviewed in consultation with Dr. Pickens, of the [facility] breast pathology department, who concurs.Laboratory Developed Test (LDT) Disclaimer:Performance characteristics of immunohistochemical, immunofluorescent and chromogenic in-situ hybridization tests have been determined by the performing laboratory within [facility]???s Subhash Adames Pathology and Laboratory Medicine Department ([facility], [facility], [facility], [facility], [facility], [facility], or [facility]) in a manner consistent with CLIA requirements. One or more of these tests have not been cleared or approved by the FDA. [facility] is regulated under CLIA as qualified to perform high-complexity testing. These tests are used for clinical purposes. They should not be regarded as investigational or for research. Positive and negative controls stain appropriately. Performed By: #### 6 6121-5 ####[facility] LABCLIA [id number] [address] [place] FINAL DIAGNOSIS Normal [facility] Comment on above: Order Comment: Speci men Type: TISSUE SPECIMENOrdering Facility: [facility] Address: [address] [place] [address] Result Comment: 1. L eft chest, skin, excision (A) - Invasive ductal carcinoma, Negro grade 3, involving subcutis, dermis and epidermis (including ulceration), (see comment).2. Left breast implant, excision and removal (B) - Amorphous acellular material.-Breast implant (gross evaluation only).3. Left breast, inframammary fold, excision (C) - Invasive ductal carcinoma, Colrain grade 3, spanning greater than 50 mm, involving capsule, subcutis, dermis and epidermis (including ulceration), (see comment).DEBBIE/debbie/05/25/24 at 1407 EST Performed By: #### 6 6121-5 ####[facility] LABCLIA [id number] [address] STATES OF [facility] FINAL PERFORMING LAB Normal [facility] Comment on above: Order Comment: Speci men Type: TISSUE SPECIMENOrdering Facility: [facility] Address: [address] [place] [address] Result Comment: Diag nostic interpretation performed at: [facility], [address] [place] [address] CLIA# [id number] Director: Gonzales Lazaro MD Performed By: #### 6 6121-5 ####[facility] LABCLIA [id number] [place] [address] [place] GROSS DESCRIPTION Normal [facility] Comment on above: Order Comment: Speci men Type: TISSUE SPECIMENOrdering Facility: [facility] Address: [address] [place] [address] Result Comment: A. S kin, ExcisionReceived in [...] 18, 2024 5:08 PMGross examination performed at [facility], [address] [place], [place] [address]B. Breast Implant, LeftReceived in formalin, labeled as left breast implant with capsule is an intact, smooth lined, silicone-filled breast implant that measures 13.0 x 13.0 x 2.0 cm and weighs 232.3 g. No defects are noted. Inscribed on the surface is STYLE SCL LOT [id number] ALLERGAN 230 CC. Also present in the specimen container are multiple segments of lgm-alfmy-zuvb granular, rubbery membranous tissue fragments that aggregate to 0.8 0.5 x 6.0 x 2.1 cm. No calcifications are noted. No nodules are present. The implant is for gross examination and is reviewed with Dr. Bullard. Lace Weaver sections of the tissue is submitted in cassettes B1-B2. May 19, 2024 2:11 PMGross examination performed at [facility], [address] [place], [place] [address]C. Skin, Wide ExcisionReceived in formalin labeled as [...] cut surfaces. Photographs are taken prior to sectioning.Lace Weaver sections are submitted as follows:C1-lateral tip, shavedC2-medial tip, shavedC3-skin lesion with superior, inferior, and underlying capsuleC4-C14 remainder of skin submitted in consecutive sections from medial to lateral, with underlying. (C5-C9 includes thickened subcutaneous tissue with possible involvement by neoplasm)T86-jzndcn capsule vfwbW04-jnpjkvx capsule dihoI10-awoxefqbp capsule wallThe specimen was removed from the patient at 12:11 PM on 05/18/2024 and placed in formalin at 12:20 PM.Gross examination performed at [facility], [address] [place] [id number] May 19, 2024 9:12 AM Performed By: #### 6 6121-5 ####[facility] LABCLIA [id number] [address] [place] CNTHERAPYon 05-13-2024 CNTHERAPY Normal [facility] CNOVon 05-12-2024 CNOV Normal [facility] CNNURSEon 05-11-2024 CNNURSE Normal [facility] CNOVon 05-07-2024 CNOV Normal [facility] STREP A MOLECULAR (POC)on Procedural Control Valid [facility] Strep A (POCT) Negative Negative [facility] CNTHERAPYon 05-06-2024 CNTHERAPY Normal [facility] CBC W Auto Differential pane l (Bld)on 05-04-2024 Basophils (Bld) [#/Vol] 0.05 10*3/uL Normal <0.11 [facility] Comment on above: Order Comment: Speci men Type: BLOOD SPECIMENOrdering Facility: [facility] Address: [address] [place] [address] Performed By: #### 5 7021-8 ####[facility] [id number] [place] [address] [place] Basophils/100 WBC (Bld) 0.7 % Normal [facility] Comment on above: Order Comment: Speci men Type: BLOOD SPECIMENOrdering Facility: [facility] Address: [address] [place] [address] Performed By: #### 5 7021-8 ####[facility] [id number] [place] [address] [place] Differential cell count method Nom (Bld) Auto Normal [facility] Comment on above: Order Comment: Speci men Type: BLOOD SPECIMENOrdering Facility: [facility] Address: [address] [place] [address] Performed By: #### 5 7021-8 ####[facility] [id number] [place] [address] [place] Eosinophils (Bld) [#/Vol] 0.09 10*3/uL Normal <0.46 [facility] Comment on above: Order Comment: Speci men Type: BLOOD SPECIMENOrdering Facility: [facility] Address: [address] [place] [address] Performed By: #### 5 7021-8 ####[facility] SENGWNCLIA [id number] [place] [address] [place] Eosinophils/100 WBC (Bld) 1.3 % Normal [facility] Comment on above: Order Comment: Speci men Type: BLOOD SPECIMENOrdering Facility: [facility] Address: [address] [place] [address] Performed By: #### 5 7021-8 ####[facility] MAURYWCARLOSLIA [id number] [place] [address] [place] Erythrocyte distribution width (RBC) [Ratio] 12.8 % Normal 11.5-15.0 [facility] Comment on above: Order Comment: Speci men Type: BLOOD SPECIMENOrdering Facility: [facility] Address: [address] [place] [address] Performed By: #### 5 7021-8 ####[facility] [id number] [place] [address] [place] Hematocrit (Bld) [Volume fraction] 37.3 % Normal 36.0-46.0 [facility] Comment on above: Order Comment: Speci men Type: BLOOD SPECIMENOrdering Facility: [facility] Address: [address] [place] [address] Performed By: #### 5 7021-8 ####[facility] MAURYHAMPSHIRENCLIA [id number] [place] [address] [place] Hemoglobin (Bld) [Mass/Vol] 12.3 g/dL Normal 11.5-15.5 [facility] Comment on above: Order Comment: Speci men Type: BLOOD SPECIMENOrdering Facility: [facility] Address: [address] [place] [address] Performed By: #### 5 7021-8 ####[facility] [id number] [place] [address] [place] Immature granulocytes (Bld) [#/Vol] 0.03 10*3/uL Normal <0.10 [facility] Comment on above: Order Comment: Speci men Type: BLOOD SPECIMENOrdering Facility: [facility] Address: [address] [place] [address] Performed By: #### 5 7021-8 ####[facility] [id number] [place] [address] [place] Immature granulocytes/100 WBC (Bld) 0.4 % Normal [facility] Comment on above: Order Comment: Speci men Type: BLOOD SPECIMENOrdering Facility: [facility] Address: [address] [place] [address] Performed By: #### 5 7021-8 ####[facility] [id number] [place] [address] [place] Lymphocytes (Bld) [#/Vol] 1.94 10*3/uL Normal 1.00-4.00 [facility] Comment on above: Order Comment: Speci men Type: BLOOD SPECIMENOrdering Facility: [facility] Address: [address] [place] [address] Performed By: #### 5 7021-8 ####[facility] [id number] [place] [address] [place] Lymphocytes/100 WBC (Bld) 29.0 % Normal [facility] Comment on above: Order Comment: Speci men Type: BLOOD SPECIMENOrdering Facility: [facility] Address: [address] [place] [address] Performed By: #### 5 7021-8 ####[facility] [id number] [place] [address] [place] MCH (RBC) [Entitic mass] 27.2 pg Normal 26.0-34.0 [facility] Comment on above: Order Comment: Speci men Type: BLOOD SPECIMENOrdering Facility: [facility] Address: [address] [place] [address] Performed By: #### 5 7021-8 ####[facility] [id number] [place] [address] [place] MCHC (RBC) [Mass/Vol] 33.0 g/dL Normal 30.5-36.0 [facility] Comment on above: Order Comment: Speci men Type: BLOOD SPECIMENOrdering Facility: [facility] Address: [address] [place], [place] [address] Performed By: #### 5 7021-8 ####[facility] [id number] [place] [address] [place] MCV (RBC) [Entitic vol] 82.3 fL Normal 80.0-100.[address] [facility] Comment on above: Order Comment: Speci men Type: BLOOD SPECIMENOrdering Facility: [facility] Address: [address] [place] [address] Performed By: #### 5 7021-8 ####[facility] [id number] [place] [address] [place] Monocytes (Bld) [#/Vol] 0.49 10*3/uL Normal <0.87 [facility] Comment on above: Order Comment: Speci men Type: BLOOD SPECIMENOrdering Facility: [facility] Address: [address] [place] [address] Performed By: #### 5 7021-8 ####[facility] [id number] [place] [address] [place] Monocytes/100 WBC (Bld) 7.3 % Normal [facility] Comment on above: Order Comment: Speci men Type: BLOOD SPECIMENOrdering Facility: [facility] Address: [address] [place] [address] Performed By: #### 5 7021-8 ####[facility] MILLTOWNCLIA [id number] [place] [address] [place] Neutrophils (Bld) [#/Vol] 4.08 10*3/uL Normal 1.45-7.50 [facility] Comment on above: Order Comment: Speci men Type: BLOOD SPECIMENOrdering Facility: [facility] Address: [address] [place] [address] Performed By: #### 5 7021-8 ####[facility] MILLWNCLIA [id number] [place] [address] [place] Neutrophils/100 WBC (Bld) 61.3 % Normal [facility] Comment on above: Order Comment: Speci men Type: BLOOD SPECIMENOrdering Facility: [facility] Address: [address] [place] [address] Performed By: #### 5 7021-8 ####[facility]CL[facility] [id number] [place] [address] [place] Nucleated RBC (Bld) [#/Vol] 10*3/uL Normal <0.01 [facility] Comment on above: Order Comment: Speci men Type: BLOOD SPECIMENOrdering Facility: [facility] Address: [address] [place] [address] Performed By: #### 5 7021-8 ####[facility] MILLTOWNCLIA [id number] [place] [address] [place] Nucleated RBC/100 WBC (Bld) [Ratio] 0.0 /100 WBC Normal [facility] Comment on above: Order Comment: Speci men Type: BLOOD SPECIMENOrdering Facility: [facility] Address: [address] [place] [address] Performed By: #### 5 7021-8 ####[facility] MILLWNCLIA [id number] [place] [address] [place] Platelet mean volume (Bld) [Entitic vol] 9.7 fL Normal 9.0-12.7 [facility] Comment on above: Order Comment: Speci men Type: BLOOD SPECIMENOrdering Facility: [facility] Address: [address] [place] [address] Performed By: #### 5 7021-8 ####[facility] BORISA [id number] [place] [address] [place] Platelets (Bld) [#/Vol] 259 10*3/uL Normal 150-400 [facility] Comment on above: Order Comment: Speci men Type: BLOOD SPECIMENOrdering Facility: [facility] Address: [address] [place] [address] Performed By: #### 5 7021-8 ####[facility] HOSPITALCARLOSASHAA [id number] [place] [address] [place] RBC (Bld) [#/Vol] 4.53 10*6/uL Normal 3.90-5.[address] [facility] Comment on above: Order Comment: Speci men Type: BLOOD SPECIMENOrdering Facility: [facility] Address: [address] [place] [address] Performed By: #### 5 7021-8 ####[facility] MAURYHAMPSHIRECARLOSLIA [id number] [place] [address] [place] WBC (Bld) [#/Vol] 6.68 10*3/uL Normal 3.70-11.[address] [facility] Comment on above: Order Comment: Speci men Type: BLOOD SPECIMENOrdering Facility: [facility] Address: [address] [place] [address] Performed By: #### 5 7021-8 ####[facility]ITALNCLIA [id number] [place] [address] [place] CNPNon 05-04-2024 CNPN Normal [facility] HISTORY PHYSICALon HISTORY PHYSICAL [facility] of [facility] CNOVon 04-28-2024 CNOV Normal [facility] CNPNon 04-28-2024 CNPN Normal [facility] INFLUENZA A&B MOLECULAR (POC )on 04-28-2024 Flu A (POCT) Negative Negative [facility] Flu B (POCT) Negative Negative [facility] Procedural Control Valid [facility] Location:[facility], [address] [place] [address], [place], [address] [facility] POINT OF CARE [facility] XR CHEST 2V FRONTAL/LATon XR CHEST 2V FRONTAL/LAT Normal [facility] XR Chest PA and Lateralon IMPRESSION: No acute radiographic abnormality. Electric Meter Installer: MARTÍNEZ Transcribe Date/Time: Apr 28 2024 3:53P Dictated by : FRACISCO BELLO MD This examination was interpreted and the report reviewed and electronically signed by: FRACISCO BELLO MD on Apr 28 2024 4:01PM [facility] DIVISION OF RADIOLOGY * * [...] the thoracic spine. DIVISION OF RADIOLOGY Provider, [facility] Anitha Reyes - 04/28/2024 * * *Final [...] spine. IMPRESSION IMPRESSION: No acute radiographic abnormality. Electric Meter Installer: PSCB Transcribe Date/Time: Apr 28 2024 3:53P Dictated by : FRACISCO BELLO MD This examination was interpreted and the report reviewed and electronically signed by: FRACISCO BELLO MD on Apr 28 2024 4:01PM [facility] Radiology Study observation (narrative) [facility] XR Chest PA and LateralOrder ed By: Ccf Provider on 04-28-2024 [facility] [id number] 04-24-2024 [id number] Normal [facility] CNTHERAPYon 04-24-2024 CNTHERAPY Normal [facility] THERAPY NTon 04-24-2024 THERAPY NT Normal [facility] CNOVon 04-15-2024 CNOV Normal [facility] [place] ON DEMANDon Ordered by an unspecified provider. [facility] CNPNon 04-13-2024 CNPN Normal [facility] US DVT UPPER LTon 04-13-2024 US [...] imaged segments of the left upper extremity. Electric Meter Installer: Localize Direct Transcribe Date/Time: Apr 13 2024 11:33A Dictated by : ARIELLA ALEX MD This examination was interpreted and the report reviewed and electronically signed by: ARIELLA ALEX MD on Apr 13 2024 11:33AM EST [id number] Normal [facility] US Upper extremity vein - le fton 04-13-2024 IMPRESSION: Negative study for DVT in the left upper extremity. Negative study for superficial thrombophlebitis in the imaged segments of the left upper extremity. Electric Meter Installer: Localize Direct Transcribe Date/Time: Apr 13 2024 11:33A Dictated by : ARIELLA ALEX MD This examination was interpreted and the report reviewed and electronically signed by: ARIELLA ALEX MD on Apr 13 2024 11:33AM EST [facility] * * *Final Report* * [...] imaged segments of the left upper extremity. Electric Meter Installer: PSCB Transcribe Date/Time: Apr 13 2024 11:33A Dictated by : ARIELLA ALEX MD This examination was interpreted and the report reviewed and electronically signed by: ARIELLA ALEX MD on Apr 13 2024 11:33AM EST [facility] Radiology Study observation (narrative) [facility] US Upper extremity vein - le ftOrdered By: Ccf Provider on 04-13-2024 [facility] CNOVSPon 04-10-2024 CNOVSP Normal [facility] CNPNon 04-10-2024 CNPN Normal [facility] metabolic 2000 panelon 04-10-2024 Albumin [Mass/Vol] 3.9 g/dL Normal 3.9-4.[address] [facility] Comment on above: Order Comment: Speci men Type: BLOOD SPECIMENOrdering Facility: [facility] Address: [address] [place] [address] Performed By: #### 2 4323-8 ####[facility] SHARADST JOHNSBURY HOSPITALWNCLIA [id number] [place] [address] [place] ALP [Catalytic activity/Vol] 65 U/L Normal 34-123 [facility] Comment on above: Order Comment: Speci men Type: BLOOD SPECIMENOrdering Facility: [facility] Address: [address] [place] [address] Performed By: #### 2 4323-8 ####[facility] HOSPITALLIA [id number] [place] [address] [place] ALT [Catalytic activity/Vol] 12 U/L Normal 7-38 [facility] Comment on above: Order Comment: Speci men Type: BLOOD SPECIMENOrdering Facility: [facility] Address: [address] [place] [address] Performed By: #### 2 4323-8 ####[facility]ITALNCLIA [id number] [place] [address] [place] Anion gap [Moles/Vol] 9 mmol/L Normal 8-15 [facility] Comment on above: Order Comment: Speci men Type: BLOOD SPECIMENOrdering Facility: [facility] Address: [address] [place] [address] Performed By: #### 2 4323-8 ####[facility] HOSPITALNCLIA [id number] [place] [address] [place] AST [Catalytic activity/Vol] 18 U/L Normal 13-35 [facility] Comment on above: Order Comment: Speci men Type: BLOOD SPECIMENOrdering Facility: [facility] Address: [address] [place] [address] Performed By: #### 2 4323-8 ####[facility] MILLTOWNCLIA [id number] [place] [address] [place] Bilirubin [Mass/Vol] 0.3 mg/dL Normal 0.2-1.3 [facility] Comment on above: Order Comment: Speci men Type: BLOOD SPECIMENOrdering Facility: [facility] Address: [address] [place] [address] Performed By: #### 2 4323-8 ####[facility] MILLTOWNCLIA [id number] [place] [address] [place] Calcium [Mass/Vol] 9.3 mg/dL Normal 8.5-10.[address] [facility] Comment on above: Order Comment: Speci men Type: BLOOD SPECIMENOrdering Facility: [facility] Address: [address] [place] [address] Performed By: #### 2 4323-8 ####[facility] MILLTOWNCLIA [id number] [place] [address] [place] Chloride [Moles/Vol] 102 mmol/L Normal 98-107 [facility] Comment on above: Order Comment: Speci men Type: BLOOD SPECIMENOrdering Facility: [facility] Address: [address] [place] [address] Performed By: #### 2 4323-8 ####[facility] MILLTOWNCLIA [id number] [place] [address] [place] CO2 [Moles/Vol] 27 mmol/L Normal 22-30 [facility] Comment on above: Order Comment: Speci men Type: BLOOD SPECIMENOrdering Facility: [facility] Address: [address] [place] [address] Performed By: #### 2 4323-8 ####[facility] MILLTOWNCLIA [id number] [place] [address] [place] Creatinine [Mass/Vol] 0.91 mg/dL Normal 0.58-0.96 [facility] Comment on above: Order Comment: Sunny lynn Type: BLOOD SPECIMENOrdering Facility: [facility] Address: [address] [place] [address] Performed By: #### 2 4323-8 ####[facility] [id number] [place] [address] [place] Creatinine and Glomerular filtration rate.predicted panel (S/P/Bld) 70 mL/min/1.73m??? Normal >=60 [facility] Comment on above: Order Comment: Sunny lynn Type: BLOOD SPECIMENOrdering Facility: [facility] Address: [address] [place] [address] Result Comment: Sherlyn mated Glomerular Filtration Rate [...] actual GFR. Performed By: #### 2 4323-8 ####[facility] [id number] [place] [address] [place] Glucose [Mass/Vol] 183 mg/dL High 74-[address] [facility] Comment on above: Order Comment: Sunny lynn Type: BLOOD SPECIMENOrdering Facility: [facility] Address: [address] [place] [address] Result Comment: The [place] Diabetes Association (ADA) provides guidance for cutoff [...] Standards of Medical Care in Diabetes 2016, [place] [employer]. Diabetes Care. 2016.39(Suppl 1). Performed By: #### 2 4323-8 ####[facility] [id number] [place] [address] [place] Potassium [Moles/Vol] 3.5 mmol/L Low 3.7-5.1 [facility] Comment on above: Order Comment: Speci men Type: BLOOD SPECIMENOrdering Facility: [facility] Address: [address] [place] [address] Performed By: #### 2 4323-8 ####[facility] [id number] [place] [address] [place] Protein [Mass/Vol] 7.1 g/dL Normal 6.3-8.[address] [facility] Comment on above: Order Comment: Speci men Type: BLOOD SPECIMENOrdering Facility: [facility] Address: [address] [place], [place] [address] Performed By: #### 2 4323-8 ####[facility] [id number] [place] [address] [place] Sodium [Moles/Vol] 138 mmol/L Normal 136-[address] [facility] Comment on above: Order Comment: Speci men Type: BLOOD SPECIMENOrdering Facility: [facility] Address: [address] [place] [address] Performed By: #### 2 4323-8 ####[facility] [id number] [place] [address] [place] Urea nitrogen [Mass/Vol] 25 mg/dL High 7-21 [facility] Comment on above: Order Comment: Speci men Type: BLOOD SPECIMENOrdering Facility: [facility] Address: [address] [place] [address] [place] [address] Performed By: #### 2 4323-8 ####[facility] SHARAD ELLSWORTHNIA [id number] [place] [address] [place] GLUCOSE, BLOOD (POC)on 04-06 Glucose [Mass/Vol] 143 mg/dL Abnormal 74 - 99 mg/dL [facility] Comment on above: Location:[facility], [address] [place] [address], [address] The Accu-Chek Inform II glucose meter has [...] review of laboratory results Abnormal [facility] NM PET/CT SKULL-THIGH SUBQon 04-06-2024 NM PET/CT [...] * Uptake Time: 60 minutes * Radiopharmaceutical: I95-Voaibqgtlpmqhltdgv (FDG) COMPARISON: FDG PET/CT 12/30/2023 CORRELATION: MRI [...] disease. MUSCULOSKELETAL: * No metabolically active disease. Electric Meter Installer: MARTÍNEZ Transcribe Date/Time: Apr 10 2024 2:35P Dictated by : SUKHJINDER SIMMONS MD This examination was interpreted and the report reviewed and electronically signed by: JOSE ADAMS MD on Apr 10 2024 3:28PM EST [id number] Normal [facility] CNOVon 03-25-2024 CNOV Normal [facility] DBT Breast - right diagnosti c for implanton 03-25-2024 IMPRESSION: There is no mammographic evidence of malignancy in the right breast. Return to annual screening mammogram is recommended. Annual mammogram will be due in 1 year. BI-RADS Category 1: Negative Interpreting Radiologist: Gui Keith M.D. Electronically signed on: 03/25/2024 Electric Meter Installer: CINDA Transcribe Date/Time: Mar 25 2024 11:23A Dictated by : GUI KEITH MD This examination was interpreted and the report reviewed and electronically signed by: GUI KEITH MD on Mar 25 2024 11:47AM [facility] DIVISION OF RADIOLOGY * * *Final Report* * * DATE OF EXAM: Mar 25 2024 11:40AM [facility] 0629 - SAMANTHA DIAG W LIN RT / PROCEDURE REASON: multiple diagnoses * * * * Physician Interpretation * * * * [place] [address] #[id number] - SAMANTHA DIAG W LIN RT HISTORY: [...] significant interval changes. DIVISION OF RADIOLOGY Provider, [facility] - 03/25/2024 * * *Final Report* * * DATE OF EXAM: Mar 25 2024 11:40AM [facility] 0629 - SAMANTHA DIAG W LIN RT / PROCEDURE REASON: multiple diagnoses * * * * Physician Interpretation * * * * [place] [address] #[id number] - SAMANTHA DIAG W LIN RT HISTORY: [...] Gui Keith M.D. Electronically signed on: 03/25/2024 Electric Meter Installer: CINDA Transcribe Date/Time: Mar 25 2024 11:23A Dictated by : GUI KEITH MD This examination was interpreted and the report reviewed and electronically signed by: GUI KEITH MD on Mar 25 2024 11:47AM EST [facility] Radiology Study observation (narrative) [facility] DBT Breast - right diagnosti c for implantOrdered By: Ccf Provider on 03-25-2024 [facility] SAMANTHA DIAG W LIN RTon 024 SAMANTHA DIAG W LIN RT Normal [facility] Abdomen Limitedon 03-24-2024 Abdomen Limited [facility] [address] [place] [address] Abdomen Limited MR#: [id number] Acct: [id number] Name: PAT SORTO Rep #: [id number] : 1960 F 64 From: Nicci Tracy MD PCP: Dr. Jacinta Rivas MD Status: REG CLI Study: Abdomen Limited Date of Exam: 03/24/24 Exam# [id number] Ordering Dr: [place] [id number] STUDY: ABDOMINAL ULTRASOUND - RIGHT UPPER QUADRANT [...] CC: Dr. Jacinta Rivas MD; Dr. Ney Hatr MD Electric Meter Installer: Signed Normal [facility] Dexa Bone Density Studyon Dexa Bone Density Study [facility] Services [address] [place] [id number] Dexa Bone Density Study MR#: [id number] Acct: [id number] Name: PAT SORTO Rep #: [id number] : 1960 F 64 From: Wil cox MD PCP: Dr. Jacinta Rivas MD Status: [facility] Study: Dexa Bone Density Study Date of Exam: 03/24/24 Exam# [id number] Ordering Dr: [place] [id number] STUDY: DUAL ENERGY X-RAY ABSORPTIOMETRY / DXA [...] 8:30 EST Reading Location ID and State: [address] [place] [address] , Service support , CC: Dr. Jacinta Rivas MD; Dr. Ney Hart MD Electric Meter Installer: Signed Normal [facility] CNOVon 03-18-2024 CNOV Normal [facility] HEMOGLOBIN A1C (POC)on 03-18 HbA1c (Bld) [Mass fraction] 7.2 % Abnormal 4.3 - 5.6 % [facility] Comment on above: Location:[address], [place], [address] Point of care (POC) Hemoglobin A1c (HGBA1C) [...] specific diabetes management situations: The POC device iuss analyst provides a normal range of 4.2% to 6.5% for the HGBA1C POC test. However, the [place] Diabetes Association guidelines indicate that patients with [...] review of laboratory results Abnormal [facility] CNPNon 02-27-2024 CNPN Normal [facility] CNPNon 02-26-2024 CNPN Normal [facility] MRI BREAST 3D POST PROCESSIN Dagoberto 02-18-2024 MRI BREAST 3D POST PROCESSING * * *Final Report* * * DATE OF EXAM: Feb 18 2024 10:54AM [facility] 0788 - MRI BREAST 3D POST PROCESSING / PROCEDURE REASON: multiple diagnoses * * * * Physician Interpretation * * * * RESULT: [facility] [address] [place] [address] HISTORY: Patient is 64 years old and [...] completed on an independent workstation. An additional 6-admraj-cwwi resolution sequence was performed after the first two 1 minute post-contrast sequences. Complex volumetric analysis requiring post processing was performed using a semi-automated software Topicmarksacad, on an independent workstation by the physician, [...] on Feb (more content not included)... Normal [facility] MRI BREAST WO/W IVCON BILon 02-18-2024 MRI BREAST WO/W IVCON DEYVI * * *Final Report* * * DATE OF EXAM: Feb 18 2024 10:50AM [facility] 0773 - MRI BREAST WO/W IVCON DEYVI / PROCEDURE REASON: multiple diagnoses * * * * Physician Interpretation * * * * RESULT: [facility] [address] [place] [address] HISTORY: Patient is 64 years old and [...] completed on an independent workstation. An additional 7-tnusqo-xyxj resolution sequence was performed after the first two 1 minute post-contrast sequences. Complex volumetric analysis requiring post processing was performed using a semi-automated software Topicmarksacad, on an independent workstation by the physician, [...] Feb 18 (more content not included)... Normal [facility] CNOVon 02-05-2024 CNOV Normal [facility] ON DEMANDon Ordered by an unspecified provider. [facility] CNOVon 01-13-2024 CNOV Normal [facility] XR HIP 2V AP/LAT RTon 2023 [...] pubis are maintained. IMPRESSION: No acute abnormality Electric Meter Installer: PSCB Transcribe Date/Time: Jan 13 2024 3:50P Dictated by : WENDY MITCHELL MD This examination was interpreted and the report reviewed and electronically signed by: WENDY MITCHELL MD on Jan 13 2024 3:51PM EST [id number] [facility] XR Hip - right AP and Latera carey 01-13-2024 IMPRESSION: No acute abnormality Electric Meter Installer: PSCB Transcribe Date/Time: Jan 13 2024 3:50P Dictated by : WENDY MITCHELL MD This examination was interpreted and the report reviewed and electronically signed by: WENDY MITCHELL MD on Jan 13 2024 3:51PM EST [facility] * * *Final Report* * * [...] Sacroiliac joints and symphysis pubis are maintained. [facility] Provider, Krista Reyes - 01/13/2024 * [...] are maintained. IMPRESSION IMPRESSION: No acute abnormality Electric Meter Installer: [facility] Transcribe Date/Time: Jan 13 2024 3:50P Dictated by : WENDY MITCHELL MD This examination was interpreted and the report reviewed and electronically signed by: WENDY MITCHELL MD on Jan 13 2024 3:51PM EST [facility] Radiology Study observation (narrative) [facility] XR Hip - right AP and Latera lOrdered By: Ccf Provider on 01-13-2024 [facility] CBC W Auto Differential pane l (Bld)on 01-06-2024 Basophils (Bld) [#/Vol] 0.04 10*3/uL Normal <0.11 [facility] Comment on above: Order Comment: Speci men Type: BLOOD SPECIMENOrdering Facility: [facility] Address: [address] [place] [address] Performed By: #### 5 7021-8 ####[facility] MILLWNCLIA [id number] [place] [address] [place] Basophils/100 WBC (Bld) 0.7 % Normal [facility] Comment on above: Order Comment: Speci men Type: BLOOD SPECIMENOrdering Facility: [facility] Address: [address] [place] [address] Performed By: #### 5 7021-8 ####[facility] HOSPITALLIA [id number] [place] [address] [place] Differential cell count method Nom (Bld) Auto Normal [facility] Comment on above: Order Comment: Speci men Type: BLOOD SPECIMENOrdering Facility: [facility] Address: [address] [place] [address] Performed By: #### 5 7021-8 ####[facility]ITALWVALIA [id number] [place] [address] [place] Eosinophils (Bld) [#/Vol] 0.10 10*3/uL Normal <0.46 [facility] Comment on above: Order Comment: Speci men Type: BLOOD SPECIMENOrdering Facility: [facility] Address: [address] [place] [address] Performed By: #### 5 7021-8 ####[facility] HOSPITALWNCLIA [id number] [place] [address] [place] Eosinophils/100 WBC (Bld) 1.7 % Normal [facility] Comment on above: Order Comment: Speci men Type: BLOOD SPECIMENOrdering Facility: [facility] Address: [address] [place] [address] Performed By: #### 5 7021-8 ####[facility]OSPITALNCLIA [id number] [place] [address] [place] Erythrocyte distribution width (RBC) [Ratio] 13.9 % Normal 11.5-15.0 [facility] Comment on above: Order Comment: Speci men Type: BLOOD SPECIMENOrdering Facility: [facility] Address: [address] [place] [address] Performed By: #### 5 7021-8 ####[facility]ITALNCMOUNTAINSTAR HEALTHC[facility] [id number] [place] [address] [place] Hematocrit (Bld) [Volume fraction] 32.5 % Low 36.0-46.0 [facility] Comment on above: Order Comment: Speci men Type: BLOOD SPECIMENOrdering Facility: [facility] Address: [address] [place] [address] Performed By: #### 5 7021-8 ####[facility]ITALNCMOUNTAINSTAR HEALTHC[facility] [id number] [place] [address] [place] Hemoglobin (Bld) [Mass/Vol] 10.9 g/dL Low 11.5-15.5 [facility] Comment on above: Order Comment: Speci men Type: BLOOD SPECIMENOrdering Facility: [facility] Address: [address] [place] [address] Performed By: #### 5 7021-8 ####[facility] HOSPITALNCLIA [id number] [place] [address] [place] Immature granulocytes (Bld) [#/Vol] 0.03 10*3/uL Normal <0.10 [facility] Comment on above: Order Comment: Speci men Type: BLOOD SPECIMENOrdering Facility: [facility] Address: [address] [place] [address] Performed By: #### 5 7021-8 ####[facility] HOSPITALNCLIA [id number] [place] [address] [place] Immature granulocytes/100 WBC (Bld) 0.5 % Normal [facility] Comment on above: Order Comment: Speci men Type: BLOOD SPECIMENOrdering Facility: [facility] Address: [address] [place] [address] Performed By: #### 5 7021-8 ####[facility] HOSPITALYISSELA [id number] [place] [address] [place] Lymphocytes (Bld) [#/Vol] 1.41 10*3/uL Normal 1.00-4.00 [facility] Comment on above: Order Comment: Speci men Type: BLOOD SPECIMENOrdering Facility: [facility] Address: [address] [place] [address] Performed By: #### 5 7021-8 ####[facility] HOSPITALCARLOSMOUNTAINSTAR HEALTHCARE [id number] [place] [address] [place] Lymphocytes/100 WBC (Bld) 23.5 % Normal [facility] Comment on above: Order Comment: Speci men Type: BLOOD SPECIMENOrdering Facility: [facility] Address: [address] [place] [address] Performed By: #### 5 7021-8 ####[facility] HOSPITALNIA [id number] [place] [address] [place] MCH (RBC) [Entitic mass] 27.9 pg Normal 26.0-34.0 [facility] Comment on above: Order Comment: Speci men Type: BLOOD SPECIMENOrdering Facility: [facility] Address: [address] [place] [address] Performed By: #### 5 7021-8 ####[facility] HOSPITALNCLIA [id number] [place] [address] [place] MCHC (RBC) [Mass/Vol] 33.5 g/dL Normal 30.5-36.0 [facility] Comment on above: Order Comment: Speci men Type: BLOOD SPECIMENOrdering Facility: [facility] Address: [address] [place] [address] Performed By: #### 5 7021-8 ####[facility] MAURYWNCLIA [id number] [place] [address] [place] MCV (RBC) [Entitic vol] 83.1 fL Normal 80.0-100.[address] [facility] Comment on above: Order Comment: Speci men Type: BLOOD SPECIMENOrdering Facility: [facility] Address: [address] [place] [address] Performed By: #### 5 7021-8 ####[facility]IL[facility] HOSPITALLIA [id number] [place] [address] [place] Monocytes (Bld) [#/Vol] 0.46 10*3/uL Normal <0.87 [facility] Comment on above: Order Comment: Speci men Type: BLOOD SPECIMENOrdering Facility: [facility] Address: [address] [place] [address] Performed By: #### 5 7021-8 ####[facility] [id number] [place] [address] [place] Monocytes/100 WBC (Bld) 7.7 % Normal [facility] Comment on above: Order Comment: Speci men Type: BLOOD SPECIMENOrdering Facility: [facility] Address: [address] [place] [address] Performed By: #### 5 7021-8 ####[facility] HOSPITALCARLOSLIA [id number] [place] [address] [place] Neutrophils (Bld) [#/Vol] 3.95 10*3/uL Normal 1.45-7.50 [facility] Comment on above: Order Comment: Speci men Type: BLOOD SPECIMENOrdering Facility: [facility] Address: [address] [place] [address] Performed By: #### 5 7021-8 ####[facility] HOSPITALCARLOSLIA [id number] [place] [id number] [place] Neutrophils/100 WBC (Bld) 65.9 % Normal [facility] Comment on above: Order Comment: Speci men Type: BLOOD SPECIMENOrdering Facility: [facility] Address: [address] [place] [address] Performed By: #### 5 7021-8 ####[facility] HOSPITALNCMOUNTAINSTAR HEALTHC[facility] [id number] [place] [address] [place] Nucleated RBC (Bld) [#/Vol] 10*3/uL Normal <0.01 [facility] Comment on above: Order Comment: Speci men Type: BLOOD SPECIMENOrdering Facility: [facility] Address: [address] [place] [address] Performed By: #### 5 7021-8 ####[facility] HOSPITALNCMOUNTAINSTAR [facility]ALTH[facility] [id number] [place] [address] [place] Nucleated RBC/100 WBC (Bld) [Ratio] 0.0 /100 WBC Normal [facility] Comment on above: Order Comment: Speci men Type: BLOOD SPECIMENOrdering Facility: [facility] Address: [address] [place] [address] Performed By: #### 5 7021-8 ####[facility]OSPITALNCMOUNTAINSTAR [facility]ALTHC[facility] [id number] [place] [address] [place] Platelet mean volume (Bld) [Entitic vol] 10.1 fL Normal 9.0-12.7 [facility] Comment on above: Order Comment: Speci men Type: BLOOD SPECIMENOrdering Facility: [facility] Address: [address] [place] [address] Performed By: #### 5 7021-8 ####[facility] [id number] [place] [address] [place] Platelets (Bld) [#/Vol] 218 10*3/uL Normal 150-400 [facility] Comment on above: Order Comment: Speci men Type: BLOOD SPECIMENOrdering Facility: [facility] Address: [address] [place] [address] Performed By: #### 5 7021-8 ####[facility] FLORESITAYISSELA [id number] [place] [address] [place] RBC (Bld) [#/Vol] 3.91 10*6/uL Normal 3.90-5.[address] [facility] Comment on above: Order Comment: Speci men Type: BLOOD SPECIMENOrdering Facility: [facility] Address: [address] [place], [place] [address] Performed By: #### 5 7021-8 ####[facility] MAURYROMELIA [id number] [place] [address] [place] WBC (Bld) [#/Vol] 5.99 10*3/uL Normal 3.70-11.[address] [facility] Comment on above: Order Comment: Speci men Type: BLOOD SPECIMENOrdering Facility: [facility] Address: [address] [place] [address] Performed By: #### 5 7021-8 ####[facility] MAURYHAMPSHIREYISSELA [id number] [place] [address] [place] CNOVSPon 01-06-2024 CNOVSP Normal [facility] CNPNon 01-06-2024 CNPN Normal [facility] Comprehensive metabolic 2000 panelon 01-06-2024 Albumin [Mass/Vol] 4.0 g/dL Normal 3.9-4.[address] [facility] Comment on above: Order Comment: Speci men Type: BLOOD SPECIMENOrdering Facility: [facility] Address: [address] [place] [address] Performed By: #### 2 4323-8 ####[facility] HOSPITALWNCLIA [id number] [place] [address] [place] ALP [Catalytic activity/Vol] 68 U/L Normal 34-123 [facility] Comment on above: Order Comment: Speci men Type: BLOOD SPECIMENOrdering Facility: [facility] Address: [address] [place] [address] Performed By: #### 2 4323-8 ####[facility] SHARAD MILLTOWNCLIA [id number] [place] [address] [place] ALT [Catalytic activity/Vol] 13 U/L Normal 7-38 [facility] Comment on above: Order Comment: Speci men Type: BLOOD SPECIMENOrdering Facility: [facility] Address: [address] [place] [address] Performed By: #### 2 4323-8 ####[facility] HOSPITALWNCLIA [id number] [place] [address] [place] Anion gap [Moles/Vol] 12 mmol/L Normal 8-15 [facility] Comment on above: Order Comment: Speci men Type: BLOOD SPECIMENOrdering Facility: [facility] Address: [address] [place] [address] Performed By: #### 2 4323-8 ####[facility] HOSPITALWVALIA [id number] [place] [address] [place] AST [Catalytic activity/Vol] 20 U/L Normal 13-35 [facility] Comment on above: Order Comment: Speci men Type: BLOOD SPECIMENOrdering Facility: [facility] Address: [address] [place] [address] Performed By: #### 2 4323-8 ####[facility] SHARAD MILLTOWNCLIA [id number] [place] [address] [place] Bilirubin [Mass/Vol] 0.3 mg/dL Normal 0.2-1.3 [facility] Comment on above: Order Comment: Speci men Type: BLOOD SPECIMENOrdering Facility: [facility] Address: [address] [place] [address] Performed By: #### 2 4323-8 ####[facility] SHARAD MILLTOWNCLIA [id number] [place] [address] [place] Calcium [Mass/Vol] 9.6 mg/dL Normal 8.5-10.[address] [facility] Comment on above: Order Comment: Speci men Type: BLOOD SPECIMENOrdering Facility: [facility] Address: [address] [place] [address] Performed By: #### 2 4323-8 ####[facility] MILLTOWNCLIA [id number] [place] [address] [place] Chloride [Moles/Vol] 103 mmol/L Normal 98-107 [facility] Comment on above: Order Comment: Speci men Type: BLOOD SPECIMENOrdering Facility: [facility] Address: [address] [place] [address] Performed By: #### 2 4323-8 ####[facility] MILLWNCLIA [id number] [place] [address] [place] CO2 [Moles/Vol] 26 mmol/L Normal 22-30 [facility] Comment on above: Order Comment: Speci men Type: BLOOD SPECIMENOrdering Facility: [facility] Address: [address] [place] [address] Performed By: #### 2 4323-8 ####[facility] MILLTOWNCLIA [id number] [place] [address] [place] Creatinine [Mass/Vol] 0.81 mg/dL Normal 0.58-0.96 [facility] Comment on above: Order Comment: Speci men Type: BLOOD SPECIMENOrdering Facility: [facility] Address: [address] [place] [address] Performed By: #### 2 4323-8 ####[facility] MILLWNCLIA [id number] [place] [address] [place] Creatinine and Glomerular filtration rate.predicted panel (S/P/Bld) 81 mL/min/1.73m??? Normal >=60 [facility] Comment on above: Order Comment: Sunny lynn Type: BLOOD SPECIMENOrdering Facility: [facility] Address: [address] [place] [address] Result Comment: Sherlyn mated Glomerular Filtration Rate [...] actual GFR. Performed By: #### 2 4323-8 ####[facility]ITALNCMOUNT[facility]STAR [facility] [id number] [place] [address] [place] Glucose [Mass/Vol] 171 mg/dL High 74-[address] [facility] Comment on above: Order Comment: Sunny lynn Type: BLOOD SPECIMENOrdering Facility: [facility] Address: [address] [place] [address] Result Comment: The [place] [employer] (ADA) provides guidance for cutoff [...] Standards of Medical Care in Diabetes 2016, [place] [employer]. Diabetes Care. 2016.39(Suppl 1). Performed By: #### 2 4323-8 ####[facility] HOSPITALNCLIA [id number] [place] [address] [place] Potassium [Moles/Vol] 3.6 mmol/L Low 3.7-5.1 [facility] Comment on above: Order Comment: Speci men Type: BLOOD SPECIMENOrdering Facility: [facility] Address: [address] [place] [address] Performed By: #### 2 4323-8 ####[facility] FLORESITANCASHAA [id number] [place] [address] [place] Protein [Mass/Vol] 7.1 g/dL Normal 6.3-8.[address] [facility] Comment on above: Order Comment: Speci men Type: BLOOD SPECIMENOrdering Facility: [facility] Address: [address] [place] [address] Performed By: #### 2 4323-8 ####[facility] HOSPITALNCLIA [id number] [place] [address] [place] Sodium [Moles/Vol] 141 mmol/L Normal 136-[address] [facility] Comment on above: Order Comment: Speci men Type: BLOOD SPECIMENOrdering Facility: [facility] Address: [address] [place] [address] Performed By: #### 2 4323-8 ####[facility]HABIL[facility]ATION HOSPITALLIA [id number] [place] [address] [place] Urea nitrogen [Mass/Vol] 21 mg/dL Normal 7-21 [facility] Comment on above: Order Comment: Speci men Type: BLOOD SPECIMENOrdering Facility: [facility] Address: [address] [place] [address] Performed By: #### 2 4323-8 ####[facility]HABIL[facility] HOSPITALLIA [id number] [place] [address] [place] CNPNon 01-02-2024 CNPN Normal [facility] GLUCOSE, BLOOD (POC)on 12-29 Glucose [Mass/Vol] 142 mg/dL Abnormal 74 - 99 mg/dL [facility] Comment on above: Location:[facility] [place], [place], [address] The Accu-Chek Inform II glucose meter has [...] review of laboratory results Abnormal [facility] NM PET/CT SKULL-THIGH SUBQon 12-30-2023 NM PET/CT [...] * Uptake Time: 49 minutes * Radiopharmaceutical: T97-Oxemqhttzdagfhgoem (FDG) COMPARISON: FDG PET/CT 08/19/2023, 05/01/2023 RESULT: [...] disease. MUSCULOSKELETAL: * No metabolically active disease. Electric Meter Installer: MARTÍNEZ Transcribe Date/Time: Dec 30 2023 1:24P Dictated by : SUKHJINDER POSEY DO This examination was interpreted and the report reviewed and electronically signed by: LAMIN HARRINGTON MD on Dec 30 2023 3:10PM EST [id number] Normal [facility] PET+CT Guidance for localiza tion of [...] disease. MUSCULOSKELETAL: * No metabolically active disease. Electric Meter Installer: MARTÍNEZ Transcribe Date/Time: Dec 30 2023 1:24P Dictated by : SUKHJINDER POSEY DO This examination was interpreted and the report reviewed and electronically signed by: LAMIN HARRINGTON MD on Dec 30 2023 3:10PM [facility] * * *Final Report* * * [...] * Uptake Time: 49 minutes * Radiopharmaceutical: W69-Oybdjplrrfozyqcetc (FDG) COMPARISON: FDG PET/CT 08/19/2023, 05/01/2023 RESULT: [...] arthroplasty. Soft Tissues: No radiotracer avid lesion. [facility] Provider, Krista Welsh [place] - 12/30/2023 * * *Final Report* * [...] * Uptake Time: 49 minutes * Radiopharmaceutical: K45-Xqqdckncfjxtsgzpnc (FDG) COMPARISON: FDG PET/CT 08/19/2023, 05/01/2023 RESULT: [...] disease. MUSCULOSKELETAL: * No metabolically active disease. Electric Meter Installer: MARTÍNEZ Transcribe Date/Time: Dec 30 2023 1:24P Dictated by : SUKHJINDER POSEY DO This examination was interpreted and the report reviewed and electronically signed by: LAMIN HARRINGTON MD on Dec 30 2023 3:10PM [facility] Radiology Study observation (narrative) [facility] PET+CT Guidance for localiza tion of tumor of Skull base to mid-thigh-- W 18F-FDG IVOrdered By: Ccf Provider on 12-30-2023 [facility] US ABD RIGHT UPPER QUADRANTo n 11-19-2023 [...] acute inflammation. Other chronic findings, as above. Electric Meter Installer: [facility] Transcribe Date/Time: Nov 21 2023 3:42P Dictated by : TELMA GERBER MD This examination was interpreted and the report reviewed and electronically signed by: TELMA GERBER MD on Nov 21 2023 3:51PM EST [id number] Normal [facility] US ABD SPLEEN -NBon 11-19-19 US ABD [...] acute inflammation. Other chronic findings, as above. Electric Meter Installer: MARTÍNEZ Transcribe Date/Time: Nov 21 2023 3:42P Dictated by : TELMA GERBER MD This examination was interpreted and the report reviewed and electronically signed by: TELMA GERBER MD on Nov 21 2023 3:51PM EST [id number] Normal [facility] UA DIP, URINE (POC)on 2023 BILIRUBIN UA (POCT) Small Abnormal Negative [facility] CLARITY UA (POCT) Cloudy [facility] COLOR UA (POCT) Dark yellow [facility] GLUCOSE UA (POCT) 100 mg/dL Abnormal Negative [facility] Hemoglobin Ql (U) Large Abnormal Negative [facility] Interpretation and review of laboratory results Abnormal [facility] KETONE UA (POCT) Negative Negative mg/dL [facility] LEUKOCYTES UA (POCT) Trace Abnormal Negative [facility] NITRITE UA (POCT) Negative [facility] PH UA (POCT) 5.5 4.5 - 8.0 [facility] Protein Ql (U) >=300 Abnormal Negative mg/dL [facility] SPECIFIC GRAVITY UA (POCT) >=1.030 1.005 - 1.030 [facility] UROBILINOGEN UA (POCT) 0.2 Noemy l E.U./dL [facility] Location:[address], [facility] [id number] [place] [address] POINT OF CARE [facility] FERRITINon 08-05-2023 Ferritin [Mass/Vol] 144.0 ng/mL 14.7 - 205.1 ng/mL [facility] Ferritin [Mass/Vol]on 2023 Interpretation and review of laboratory results Normal [facility] Iron and Iron binding capaci ty panelon 08-05-2023 Interpretation and review of laboratory results Normal [facility] Iron [Mass/Vol] 49 ug/dL 41 - 186 ug/dL [facility] Iron binding capacity [Mass/Vol] 319 ug/dL 232 - 386 ug/dL [facility] Iron/TIBC [Molar ratio] 15.4 % 15.0 - 57.0 % [facility] HEMOGLOBIN A1C (POC)on 07-15 HbA1c (Bld) [Mass fraction] 9.1 % Abnormal 4.3 - 5.6 % [facility] Comment on above: Location:[address], [address] Point of care (POC) Hemoglobin A1c (HGBA1C) [...] specific diabetes management situations: The POC device iuss analyst provides a normal range of 4.2% to 6.5% for the HGBA1C POC test. However, the [place] Diabetes [employer] guidelines indicate that patients with [...] review of laboratory results Abnormal [facility] Absolute lymphocyte countOrd ered By: Jaquan Nelson on 07-08-2023 Lymphocytes Auto (Unsp spec) [#/Vol] 1.06 10*3/uL 0.83-4.51 [facility] Amorphous sediment detection in urine sediment by light microscopyOrdered By: Jaquan Nelson on 07-08-2023 Amorphous sediment LM Ql (Urine sed) 1+ URATE [facility] Automated lymphocyte count a s percentage of total leukocytesOrdered By: Jaquan Nelson on 07-08-2023 Lymphocytes/100 WBC Auto (Unsp spec) 12.7 % 19-41 [facility] Basophil percentageOrdered B y: Jaquan Nelson on 07-08-2023 Basophil percentage >100 SEEN /hpf 0-5 [facility] Basophils/100 WBC (Bld) 0.5 % 0-1 [facility] Chloride [Moles/Vol] 102 mmol/L 98-107 [facility] Eosinophils/100 WBC (Bld) 0.6 % 0-5 [facility] Glucose [Mass/Vol] 294 mg/dL 74-106 [facility] Comment on above: Glucose result great er than or equal to 200 mg/dLsuggests DIABETES MELLITUS per A.D.A. criteria. Hemoglobin (Bld) [Mass/Vol] 10.4 g/dL 12.0-15.0 [facility] Monocytes/100 WBC (Bld) 8.5 % 0-10 [facility] Neutrophils (Bld) [#/Vol] 6.5 10*3/uL 2.0-7.7 [facility] Neutrophils/100 WBC (Bld) 77.5 % 47-70 [facility] Potassium [Moles/Vol] 3.7 mmol/L 3.5-5.1 [facility] Sodium [Moles/Vol] 137 mmol/L 136-145 [facility] WBC (Bld) [#/Vol] 8.4 10*3/uL 4.4-11.0 [facility] Bilirubin Test strip Ql (U)O rdered By: Jaquan Nelson on 07-08-2023 Bilirubin Ql (U) Negative Negative [facility] Determination of erythrocyte mean corpuscular volume (MCV)Ordered By: Jaquan Nelson on 07-08-2023 MCV (RBC) [Entitic vol] 86.4 fL 81-99 [facility] Erythrocyte distribution wid th ratioOrdered By: Jaquan Nelson on 07-08-2023 Erythrocyte distribution width (RBC) [Ratio] 14.3 % 11.6-14.6 [facility] Erythrocyte distribution wid th standard deviationOrdered By: Jaquan eNlson on 07-08-2023 Erythrocyte distribution width (RBC) [Entitic vol] 45.2 fL 35.1-43.9 [facility] GLUCOSE, BLOOD (POC)on 07-07 Glucose [Mass/Vol] 339 mg/dL Abnormal 74 - 99 mg/dL [facility] Hematocrit Auto (Bld) [Volum e fraction]Ordered By: Jaquan Nelson on 07-08-2023 Hematocrit (Bld) [Volume fraction] 32.3 % 37-47 [facility] Immature granulocytes/100 WB C Auto (Bld)Ordered By: Jaquan Nelson on 07-08-2023 Immature granulocytes/100 WBC (Bld) 0.200 % 0.0-0.9 [facility] Comment on above: IG% - Immature Granu locytes (promyelocytes, myelocytes and metamyelocytes) > 1% indicates that a LEFT SHIFT is Present. Ketones Test strip Ql (U)Ord ered By: Jaquan Nelson on 07-08-2023 Ketones Ql (U) Negative Negative [facility] Laboratory - Chemistry and C hemistry - challengeOrdered By: Jaquan Nelson on 07-08-2023 CO2 [Moles/Vol] 29.0 mmol/L 21.0-32.0 [facility] Urea nitrogen/Creatinine [Mass ratio] 13.5 mg/mg 10-20 [facility] - Hematology and Cell countsOrdered By: Jaquan Nelson on 07-08-2023 MCH (RBC) [Entitic mass] 27.8 pg 27.0-32.0 [facility] MCHC (RBC) [Mass/Vol] 32.2 g/dL 32-36 [facility] Nucleated RBC/100 WBC (Bld) [Ratio] 0 % 0-5 [facility] Platelet mean volume (Bld) [Entitic vol] 10.4 fL 6.2-12.0 [facility] Platelets (Bld) [#/Vol] 240 10*3/uL 150-450 [facility] Mucus LM Ql (Urine sed)Order ed By: Jaquan Nelson on 07-08-2023 Mucus Ql (Urine sed) 0 SEEN /hpf [facility] Nitrite Test strip Ql (U)Ord ered By: Jaquan Nelson on 07-08-2023 Nitrite Ql (U) Negative Negative [facility] No Panel InformationOrdered By: Jaquan Nelson on 07-08-2023 Estimated Creatinine Clearance Calc 56.04 ml/min [facility] Estimated GFR (MDRD) Amer 64 mL/min >60 [facility] Comment on above: GFR Calc Estimated GFR (MDRD) Non-Af Amer 53 mL/min >60 [facility] Comment on above: Non- GFR Calc Urine RBC 10-25 SEEN /hpf 0-5 [facility] Protein Test strip Ql (U)Ord ered By: Jaquan Nelson on 07-08-2023 Protein Ql (U) 100 mg/dl Negative [facility] RBC Auto (Bld) [#/Vol]Ordere d By: Jaquan Nelson on 07-08-2023 RBC (Bld) [#/Vol] 3.74 10*6/uL 4.2-5.4 [place] [facility] Serum or plasma calcium ashley urement (mass/volume)Ordered By: Jaquan Nelson on 07-08-2023 Calcium [Mass/Vol] 9.1 mg/dL 8.5-10.1 [facility] Serum or plasma creatinine m easurement (mass/volume)Ordered By: Jaquan Nelson on 07-08-2023 Creatinine [Mass/Vol] 1.11 mg/dL 0.55-1.02 [facility] Comment on above: The validity of the calculated GFR & GFRAA in patients over 70 years has not been determined. Clinical correlation is essential. Serum or plasma urea nitroge n measurement (mass/volume)Ordered By: Jaquan Nelson on 07-08-2023 Urea nitrogen [Mass/Vol] 15 mg/dL 7-18 [facility] Squamous epithelial cells de tection in urine sediment by light microscopyOrdered By: Jaquan Nelson on 07-08-2023 Epithelial cells.squamous LM Ql (Urine sed) 0-5 SEEN /hpf 5-10 [facility] Thin prep Papanicolaou smear with manual screeningOrdered By: Jaquan Nelson on 07-08-2023 Thin prep Papanicolaou smear with manual screening 6 5-15 [facility] UA DIP, URINE (POC)on 2023 BILIRUBIN UA (POCT) Negative Negative [facility] CLARITY UA (POCT) [facility] COLOR UA (POCT) Yellow [facility] GLUCOSE UA (POCT) >=1000 Abnormal Negative mg/dL [facility] Hemoglobin Ql (U) Large Abnormal Negative [facility] KETONE UA (POCT) Negative Negative mg/dL [facility] LEUKOCYTES UA (POCT) Small Abnormal Negative [facility] NITRITE UA (POCT) Negative Negative [facility] PH UA (POCT) 5.5 4.5 - 8.0 [facility] Protein Ql (U) >=300 Abnormal Negative mg/dL [facility] SPECIFIC GRAVITY UA (POCT) 1.020 1.005 - 1.030 [facility] UROBILINOGEN UA (POCT) 0.2 E.U./dL Noemy l E.U./dL [facility] Urine blood detectionOrdered By: Jaquan Nelson on 07-08-2023 RBC Ql (U) 250 /ul Negative [facility] Urine clarityOrdered By: Cheo Nelson on 07-08-2023 Clarity (U) Cloudy Clear [facility] Urine color determinationOrd ered By: Jaquan Nelson on 07-08-2023 Color (U) Yellow Yellow [facility] Urine glucose detectionOrder ed By: Jaquan Nelson on 07-08-2023 Glucose Ql (U) 1000 mg/dl Normal [facility] Urine leukocyte esterase det ection by dipstickOrdered By: Jaquan Nelson on 07-08-2023 Leukocyte esterase Test strip Ql (U) 500 /ul Negative [facility] Urine pHOrdered By: Jaquan harden on 07-08-2023 pH (U) 6.0 [pH] 5.0 - 8.0 [facility] Urine sediment bacteria coun t by microscopy (number/high power field)Ordered By: Jaquan Nelson on 07-08-2023 Bacteria LM.HPF (Urine sed) [#/Area] 2 /[HPF] None Seen [facility] Urine specific gravity measu rementOrdered By: Jaquan Nelson on 07-08-2023 Specific gravity (U) [Rel density] 1.015 1.002-1.03 0 [facility] Urine urobilinogen measureme ntOrdered By: Jaquan Nelson on 07-08-2023 Urobilinogen Ql (U) Normal mg/dl Normal [facility] NM PET/CT SKULL-THIGH SUBSEQ UENTon 01-28-2023 [facility] Basic metabolic 2000 panelon 11-07-2022 Anion gap [Moles/Vol] 10 mmol/L 9 - 18 mmol/L [facility] Calcium [Mass/Vol] 9.6 mg/dL 8.5 - 10. 2 mg/dL [facility] Chloride [Moles/Vol] 105 mmol/L 97 - 10 5 mmol/L [facility] CO2 [Moles/Vol] 25 mmol/L 22 - 30 mmol/L [facility] Creatinine [Mass/Vol] 1.27 mg/dL High 0.58 - 0.96 mg/dL [facility] Estimated Glomerular Filtration Rate 48 mL/min/1.73m Low >=60 mL/min/1.7 3m [facility] Glucose [Mass/Vol] 140 mg/dL High 74 - 99 mg/dL [facility] Potassium [Moles/Vol] 3.8 mmol/L 3.7 - 5.1 mmol/L [facility] Sodium [Moles/Vol] 140 mmol/L 136 - 144 mmol/L [facility] Urea nitrogen [Mass/Vol] 22 mg/dL High 7 - 21 mg/dL [facility] Urinalysis complete panel (U )on 09-20-2022 Bilirubin Ql (U) Negative [facility] Clarity (Unsp spec) Cloudy Abnormal Clear [facility] Color (U) Yellow Yellow [facility] Epithelial cells LM.HPF (Urine sed) [#/Area] Few Abnormal None Seen /HPF [facility] Glucose Test strip (U) [Mass/Vol] Negative Trace, Negative [facility] Hemoglobin Ql (U) 2+ Abnormal Negative, Trace [facility] Hyaline casts (Urine sed) [#/Area] 4-10 /LPF Abnormal 0 /LPF [facility] Ketones Ql (U) Negative Trace, Negative [facility] Leukocyte esterase Test strip Ql (U) 500 Ailin/uL Abnormal Negative, 25 Ailin/uL [facility] Nitrite Ql (U) Negative Negative [facility] pH (U) 5.5 [pH] 5.0 - 8.0 [facility] Protein (U) [Mass/Vol] 1+ Abnormal Trace , Negative [facility] RBC LM.HPF (Urine sed) [#/Area] 11-25 /HPF Abnormal 0-3 /HPF [facility] Specific gravity (U) [Rel density] 1.018 1.005 - 1.030 [facility] Urobilinogen Ql (U) Negative Negative [facility] WBC LM.HPF (Urine sed) [#/Area] /[HPF] Abnormal 0-5 /HPF [facility] MRI BREAST WO/W IVCON BILATE RALon 08-15-2022 [facility] ANES POSTPROC EVALon 023 ANES POSTPROC EVAL HNO ID: [id number] Author: Cliff Payton MD Service: Anesthesiology Author [...] August 14, 2022 TIME: 10:02 AM CSN: [id number] [facility] ANES PRE-OPon 08-14-2022 ANES PRE-OP HNO ID: [id number] Author: Cliff Payton MD Service: Anesthesiology Author [...] and consent discussed: yes. Patient / Responsible Republican agrees to proceed: yes Patient / Surrogate [...] August 14, 2022 TIME: 8:50 AM CSN: [id number] [facility] NON-GYNon 3 ADEQUACY INTERPRETATION Normal [facility] Comment on above: Order Comment: Speci men Type: SPECIMEN OBTAINED BY ASPIRATION Ordering Facility: [facility] Address: [address] [place] [address] Result Comment: A: # 1 Positive for malignant cells, adenocarcinoma Dr. Rey / Mragie Arzola Each letter in the above intra-procedural assessment refers to a unique site. The specific site is indicated in the final diagnosis portion of the report. Each number in this assessment references a discrete evaluation episode. Intra-procedural assessment performed at [facility], [address] [place] [address] Performed By: #### C YTONON #### [facility] CLIA [id number] [address] [place] [address] LAB CLIA [id number] [address] [place] [address] CASE REPORT Normal [facility] Comment on above: Order Comment: Speci men Type: SPECIMEN OBTAINED BY ASPIRATION Ordering Facility: [facility] Address: [address] [place] [address] Result Comment: [facility] Cytology Report Case: [id number] Authorizing Provider: Kam Dangelo MD Collected: 08/14/2022 09:11 AM Ordering Location: [facility] Received: 08/14/2022 10:05 AM Endoscopy - ENDO Pathologist: Adam Rey MD Specimen: EBUS TRANSBRONCHIAL FINE NEEDLE ASPIRATE, LYMPH NODE, 4L Performed By: #### C YTONON #### [facility] CLIA [id number] [address] [place] [address] LAB CLIA [id number] [facility] [address] CLINICAL HISTORY Normal [facility] Comment on above: Order Comment: Speci men Type: SPECIMEN OBTAINED BY ASPIRATION Ordering Facility: [facility] Address: [address] [place] [address] Result Comment: Pre- op diagnosis: Adenopathy [R59.9] Performed By: #### C YTONON #### [facility] CLIA [id number] [address] [id number] [facility] CLIA [id number] [address] DIAGNOSIS COMMENT Normal [facility] Comment on above: Order Comment: Speci men Type: SPECIMEN OBTAINED BY ASPIRATION Ordering Facility: [facility] Address: [address] [address] Result Comment: The following immunohistochemical stains with appropriate controls were performed on the cell block and the results support the interpretation above: GATA3 and TRPS1 - positive. See also related surgical pathology report [id number]. Laboratory Developed Test (LDT) Disclaimer (GATA3): Performance characteristics of immunohistochemical, immunofluorescent and chromogenic in-situ hybridization tests have been determined by the performing laboratory within [facility]???s Subhash Hanson [facility] Pathology and Laboratory Medicine [place] ([facility], [facility], [facility], [facility], [facility], or [facility]) in a manner consistent with CLIA [...] condition. Performed By: #### C YTONON #### [facility] [place] [id number] [address] [id number] [facility] CLIA [id number] [address] FINAL DIAGNOSIS Normal [facility] Comment on above: Order Comment: Speci men Type: SPECIMEN OBTAINED BY ASPIRATION Ordering Facility: [facility] Address: [address] [place] [address] Result Comment: A - EBUS TRANSBRONCHIAL FINE NEEDLE ASPIRATE, LYMPH NODE - 4L Positive for malignant cells. Metastatic adenocarcinoma consistent with breast primary (see comment). The following cell blocks were associated with this case: A1 Cell Block, Alcohol Fixed Performed By: #### C YTONON #### [facility] CLIA [id number] [place] [address] LAB CLIA [id number] [address] OF [facility] FINAL PERFORMING LAB Normal [facility] Comment on above: Order Comment: Speci men Type: SPECIMEN OBTAINED BY ASPIRATION Ordering Facility: [facility] Address: [address] [address] Result Comment: Tech nical component, curtain feller blindstitch screening performed at [facility], [address] [place] [address] CLIA# [id number] Diagnostic interpretation performed at [facility], [address] [place] [address] CLIA# [id number] [employer] Supervisor: Adam Rey M.D. Performed By: #### C YTONON #### [facility] CLIA [id number] [address] [place] [address] LAB CLIA [id number] [address] GROSS DESCRIPTION Normal [facility] Comment on above: Order Comment: Speci men Type: SPECIMEN OBTAINED BY ASPIRATION Ordering Facility: [facility] Address: [address] [address] Result Comment: A. E BUS TRANSBRONCHIAL FINE NEEDLE ASPIRATE, LYMPH NODE 30 cc clear light pink CytoLyt with scant particles. ThinPrep and Cell Block prepared and 2 smears (1 air dried and 1 fixed). Performed By: #### C YTONON #### [facility] CLIA [id number] LAB CLIA [id number] [address] ORDER COMMENT [facility] Comment on above: Order Comment: Speci men Type: SPECIMEN OBTAINED BY ASPIRATION Ordering Facility: [facility] Address: [address] [place] [address] Result Comment: Pre- op diagnosis: Adenopathy [R59.9] Performed By: #### C YTONON #### [facility] CLIA [id number] LAB CLIA [id number] [address] HER2 (4B5) BY IHCon 08-15-19 HER2 (4B5) BY IHC [facility] Comment on above: Order Comment: Speci men Type: TISSUE SPECIMEN Ordering Facility: [facility] Address: [address] [place] [address] Result Comment: [facility] [employer] RESULTS: Estrogen Receptor (ER) Positive 91-100% Stain intensity: strong Internal controls: absent External controls: appropriately stained Progesterone Receptor (GA) Positive 91-100% Stain intensity: strong Internal controls: [...] Reference Range for Hormone Receptors: Staining for GA of greater than or equal to 1% of the tumor cells is considered positive. Staining for ER of 1-10% of the tumor cells is considered low positive. Staining for ER of greater than 10% of the tumor cells is considered positive. Staining for ER or GA of less than 1% is considered negative. [...] and Progesterone Receptor Testing in Breast Cancer: [place] Society of Clinical Oncology/College of [place] Pathologists Guideline Update. RACHELLE Arauz, Dennis FISH et al., Arch Pathol Lab Med. 2019Apr 20. METHODS: Estrogen Receptor: Food and Drug Administration (FDA) cleared: [place] Primary Antibody: SP1 Progesterone Receptor: FDA cleared: [employer], [place], [place] Primary Antibody: IE2 HER2 (ERBB2) by IHC: FDA cleared: [employer], [place], [place] Primary Antibody:4B5 The hormone receptor tests were performed and reported in accordance with the guidelines approved by the [place] Society of Clinical Oncologists and the College of [place] Pathologists. Regla BUSH et al. Estrogen and Progesterone Receptor Testing in Breast Cancer: [place] Society of Clinical Oncologists and the College of [place] Pathologists Guideline Update. Arch Pathol Lab Med. 2019;144(5):545-563. PMID: [id number]. The hormone receptor assays have been internally validated on decalcified tissues (for [facility] only). Estrogen and progesterone receptor results are valid if tissue was processed according to ASCO/CAP guidelines. Antibody and Detection System: Wheatley's Pathway anti-HER2 rabbit monoclonal antibody (clone 4B5), Wheatley Confirm anti-estrogen receptor rabbit monoclonal antibody (clone SP1) and Wheatley anti-progesterone receptor rabbit monoclonal antibody (clone IE2) detected with the [employer]Feed UltraView Univeral DAB Detection Kit (indirect biotin-free detection), [employer], [place], [place]. Control Slides: Cell line controls with high, [...] accordance with the guidelines approved by the [place] Society of Clinical Oncologists and the College of [place] Pathologists. Rochelle FRITZ et al. Arch Pathol [...] not included)... Performed By: #### S , [id number] #### [facility] CLIA [id number] [address] [place] [address] OF [facility] NURSING PROGon 08-14-2022 NURSING PROG HNO ID: [id number] Author: Daily Fernández, RN Service: ? Author [...] Electronically Signed By: Daily Fernández Other: ebus [facility] SURGICAL PATHOLOGYon 023 ADDENDUM 1: [facility] Comment on above: Order Comment: Speci men Type: TISSUE SPECIMEN Ordering Facility: [facility] Address: [address] [address] Result Comment: The neoplastic cells are positive for GATA3, TRPS1 and ER, and negative for TTF-1, consistent with a breast primary. ER/GA/HER2 will be reported in an addendum. Addendum electronically signed by Tñoo Cabrera MD on 08/16/2022 at 10:12 AM Performed By: #### S , [id number] #### [facility] CLIA [id number] [address] [place] [address] CASE REPORT Normal [facility] Comment on above: Order Comment: Speci men Type: TISSUE SPECIMEN Ordering Facility: [facility] Address: [address] [place] [address] Result Comment: Surg [facility] Pathology Report Case: [id number] Authorizing Provider: Kam Dangelo MD Collected: 08/14/2022 09:27 AM Ordering Location: [facility] Received: 08/14/2022 11:28 AM Endoscopy - ENDO Pathologist: Toño Cabrera MD Specimen: LUNG BIOPSY LEFT, station 4L core biopsy Performed By: #### S , [id number] #### [facility] CLIA [id number] [address] [place] [address] CLINICAL HISTORY Normal [facility] Comment on above: Order Comment: Speci men Type: TISSUE SPECIMEN Ordering Facility: [facility] Address: [address] [place] [address] Result Comment: Pre- op diagnosis: Adenopathy [R59.9] Performed By: #### S , [id number] #### [facility] CLIA [id number] [address] [place] [address] OF HEATHER DIAGNOSIS COMMENT Immunohistochemical stains for site of origin have been requested and will be reported in an addendum. [facility] Comment on above: Order Comment: Speci men Type: TISSUE SPECIMEN Ordering Facility: [facility] Address: [address] [place] [address] Performed By: #### S , [id number] #### [facility] CLIA [id number] [address] [place] [address] FINAL DIAGNOSIS Normal [facility] Comment on above: Order Comment: Speci men Type: TISSUE SPECIMEN Ordering Facility: [facility] Address: [address] [place] [address] Result Comment: A. L ymph node, station 4L core biopsy: - Metastatic adenocarcinoma (See comment). Performed By: #### S , [id number] #### [facility] CLIA [id number] [address] [place] [address] FINAL PERFORMING LAB Normal [facility] Comment on above: Order Comment: Speci men Type: TISSUE SPECIMEN Ordering Facility: [facility] Address: [address] [place] [address] Result Comment: Diag nostic interpretation performed at [facility], [address] [place] [address] CLIA# [id number] [employer] Supervisor: Gonzales Lazaro M.D. Performed By: #### S , [id number] #### [facility] CLIA [id number] [address] [place] [address] GROSS DESCRIPTION Normal [facility] Comment on above: Order Comment: Speci men Type: TISSUE SPECIMEN Ordering Facility: [facility] Address: [address] [place] [address] Result Comment: A. L HOSSEIN BIOPSY LEFT Received in formalin are multiple segments of cylindrical tissue aggregating to 2.0 x 1.1 x 0.2 cm, red-brown and of a soft and friable consistency. Totally submitted in formalin in one cassette. Gross examination performed at [facility], [address] [place] [address] JS 08/14/2022 4:28 PM Performed By: #### S , [id number] #### [facility] CLIA [id number] [address] STATES OF [facility] CNOVon 08-13-2022 CNOV Office Visit (PUFAMO ) PAT SORTO ([id number]) 1960 F U[place] Date Time Provider Department 08/13/22 10:40 AM KAM DANGELO PUFAANTOINETTE During your visit today, we recorded the following information about you: Pulse Blood pressure Weight Height 70/minute 144/87 92.1 kg 1.676 m Kam Dangelo MD 08/13/2022 11:14 AM Signed Interventional Pulmonary Consultation Date of Service: August 13, 2022 Patient: Pat Sorto Medical Record: [id number] Primary Care Physician: Jacinta Rivas MD Referring [...] (HCC) followed by Dr. Husam Hart in [place] Past Surgical History PAST SURGICAL HISTORY Procedure Laterality Date ARTHRP ACETBLR/PROX FEM PROSTC AGRFT/ALGRFT Right 03/20/2019 Hip replacement, total ARTHRP KNE CONDYLEANDPLATU MEDIALANDLAT COMPARTMENTS Left 02/2016 BIOPSY BREAST OPEN INCISIONAL Left 2007 [facility] benign pathology per patient BREAST RECONSTRUCTION Left [...] ABDOMEN: S (more content not included)... Normal [facility] HISTORY PHYSICALon HISTORY PHYSICAL HNO ID: [id number] Author: Kam Dangelo MD Service: ? Author Type: Physician Type: HANDP Filed: 08/13/2022 11:14 AM Note Text: Interventional Pulmonary Consultation Date of Service: August 13, 2022 Patient: Pat Sorto Medical Record: [id number] Primary Care Physician: Jacinta Rivas MD Referring [...] (HCC) followed by Dr. Husam Hart in [place] Past Surgical History PAST SURGICAL HISTORY Procedure Laterality Date ARTHRP ACETBLR/PROX FEM PROSTC AGRFT/ALGRFT Right 03/20/2019 Hip replacement, total ARTHRP KNE CONDYLEANDPLATU MEDIALANDLAT COMPARTMENTS Left 02/2016 BIOPSY BREAST OPEN INCISIONAL Left 2007 [facility] benign pathology per patient BREAST RECONSTRUCTION Left [...] the CT-PET (more content not included)... Normal [facility] US BREAST LTD LEFTon 023 [facility] XR Pelvis APon 03-26-2022 * * *Final [...] hip osteoarthrosis, showing interval progression. No fracture. [facility] Provider, Krista Welsh [facility] - 03/26/2022 * * *Final Report* [...] RED 2. 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[employer] Transcribe Date/Time: Mar 26 2022 2:12P Dictated by : WENDY MITCHELL MD This examination was interpreted and the report reviewed and electronically signed by: WENDY MITCHELL MD on Mar 26 2022 2:12PM EST [facility] Radiology Study observation (narrative) [facility] XR Pelvis APOrdered By: [facility] Provider on 03-26-2022 [facility] HEMOGLOBIN A1C (POC)on 02-19 HbA1c (Bld) [Mass fraction] 5.9 % 4.2 - 5.6 % [facility] UA DIP, URINE (POC)on 2021 BILIRUBIN UA (POCT) Negative Negative [facility] CLARITY UA (POCT) Cloudy [facility] COLOR UA (POCT) Yellow [facility] GLUCOSE UA (POCT) Negative Negative mg/dL [facility] HEMOGLOBIN/BLOOD UA (POCT) Trace-intact Abnormal Negative [facility] KETONE UA (POCT) Negative Negative mg/dL [facility] LEUKOCYTES UA (POCT) Large Abnormal Negative [facility] NITRITE UA (POCT) Positive Abnormal Negative [facility] PH UA (POCT) 5.5 4.5 - 8.0 [facility] Protein Ql (U) Trace Abnormal Negative mg/dL [facility] SPECIFIC GRAVITY UA (POCT) 1.025 1.005 - 1.030 [facility] UROBILINOGEN UA (POCT) 0.2 E.U./dL Noemy l E.U./dL [facility] UA DIP, URINE (POC)on 2021 BILIRUBIN UA (POCT) Negative Negative [facility] CLARITY UA (POCT) [facility] COLOR UA (POCT) Yellow [facility] GLUCOSE UA (POCT) Negative Negative mg/dL [facility] HEMOGLOBIN/BLOOD UA (POCT) Small Abnormal Negative [facility] KETONE UA (POCT) Negative Negative mg/dL [facility] LEUKOCYTES UA (POCT) Moderate Abnormal Negative [facility] (POCT) Positive Abnormal Negative [facility] PH UA (POCT) 5.0 4.5 - 8.0 [facility] Protein Ql (U) 30 mg/dL Abnormal Negative mg/dL [facility] SPECIFIC GRAVITY UA (POCT) 1.020 1.005 - 1.030 [facility] UROBILINOGEN UA (POCT) 0.2 E.U./dL Noemy l E.U./dL [facility] XR Chest PA and Lateralon IMPRESSION: No acute radiographic abnormality. 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 DIVISION OF RADIOLOGY Provider, [facility] - 02/13/2021 * * *Final Report* * [...] Unremarkable. IMPRESSION IMPRESSION: No acute radiographic abnormality. Electric Meter Installer: PSCB Transcribe Date/Time: Feb 13 2021 4:51P Dictated by : CHRISTIAN MA MD This examination was interpreted and the report reviewed and electronically signed by: CHRISTIAN MA MD on Feb 13 2021 4:54PM EST [facility] Radiology Study observation (narrative) [facility] XR Chest PA and LateralOrder ed By: Ccf Provider on 02-13-2021 [facility] XR Chest PA and Lateralon IMPRESSION: No acute radiographic abnormality. Electric Meter Installer: PSCB Transcribe Date/Time: Jan 03 2021 3:52P [...] mild degenerative changes. DIVISION [facility]Y [facility] * * *Final Report* [...] changes. IMPRESSION IMPRESSION: No acute radiographic abnormality. Electric Meter Installer: MARTÍNEZ Transcribe Date/Time: Jan 03 2021 3:52P Dictated by : RODRÍGUEZ MAGUIRE MD This examination was interpreted and the report reviewed and electronically signed by: RODRÍGUEZ MAGUIRE MD on Jan 03 2021 3:52PM EST [facility] Radiology Study observation (narrative) [facility] XR Chest PA and LateralOrder ed By: Ccf Provider on 01-03-2021 [facility] [place] ELASTOGRAPHY LIVER W/ABD LTDon 08-12-2019 [place] [...] Date: 08/12/2019 11:18:14 AM Ordering Provider:Ney Hart [facility] ([place]) Basic Metabolic Profile (BMP )Ordered By: Calcine Furnace Tender on 04-24-2017 Basic metabolic 2000 panel 59 mL/min Abnormal [facility] Work Phone: Comment on above: Non- GFR Calc [facility] [address] [place], [place], [phone] Basic metabolic 2000 panel 25 mg/dL Abnormal 7-18 [facility] Work Phone: Comment on above: [facility] [address] [place], [place], [phone] Basic metabolic 2000 panel 72 mL/min Normal [facility] Work Phone: Comment on above: GFR Calc [facility] [address] [place], [place], [phone] Basic metabolic 2000 panel 56.28 ml/min Normal [facility] Work Phone: Comment on above: [facility] [address] [place], [place], [address] Basic metabolic 2000 panel 24.5 {RATIO} Abnormal 10-20 [facility] Work Phone: Comment on above: [facility] [address] [place], [address] Basic metabolic 2000 panel 123 mg/dL Abnormal 70-110 [facility] Work Phone: Comment on above: Fasting Glucose resu lt from 110 to <126 mg/dLsuggests IMPAIRED HOMEOSTASIS per A.D.A. criteria. [facility] [address] [place], [address] Basic metabolic 2000 panel 3.8 mmol/L Normal 3.5-5.1 [facility] Work Phone: Comment on above: [facility] [address] [place], [place], [address] Basic metabolic 2000 panel 11 1 Normal 5-15 [facility] Work Phone: Comment on above: [facility] [address] [place], [place], [address] Basic metabolic 2000 panel 9.3 mg/dL Normal 8.5-10.1 [facility] Work Phone: Comment on above: [facility] [address] [place], [address] Basic metabolic 2000 panel 24.0 mmol/L Normal 21.0-32.0 [facility] Work Phone: Comment on above: [facility] [address] [place], [address] Basic metabolic 2000 panel 137 mmol/L Normal 136-145 [facility] Work Phone: Comment on above: [facility] [address] [place], [address] Basic metabolic 2000 panel 1.02 mg/dL Normal 0.55-1.02 [facility] Work Phone: Comment on above: The validity of the calculated GFR AND GFRAA in patients over70 years has not been determined. Clinical correlation isessential. [facility] [address] [place], [place], [phone] Basic metabolic 2000 panel 102 mmol/L Normal 98-107 [facility] Work Phone: Comment on above: [facility] [address] [place], [place], [phone] CBC-Complete Blood Cnt No Di ffOrdered By: Calcine Furnace Tender on 04-24-2017 Erythrocyte distribution width Ratio (RBC) 12.0 % Normal 11.6-14.6 [facility] Work Phone: Comment on above: [facility] [address] [place], [place], [phone] Hematocrit Volume Fraction (Bld) 40.0 % Normal 37-47 [facility] Internal Medicine Work Phone: Comment on above: [facility] [address] [place], [place], [phone] Hemoglobin mass conc (Bld) 13.4 g/dL Normal 12.0-15.0 [facility] Internal Medicine Work Phone: Comment on above: [facility] [address] [place], [place], [phone] MCH Entitic mass (RBC) 29.9 pg Normal 27.0-32.0 [facility] Internal Medicine Work Phone: Comment on above: [facility] [address] [place], [place], [phone] MCHC mass conc (RBC) 33.5 {g/gl} Normal 32-36 [facility] Internal Medicine Work Phone: Comment on above: [facility] [address] [place], [place], [phone] MCV Entitic volume (RBC) 89.3 fL Normal 81-99 [facility] Work Phone: Comment on above: [facility] [address] [place], [place], [phone] Platelet mean volume Entitic volume (Bld) 10.4 fL Normal 6.2-12.0 Comprehensi ve Internal Medicine Work Phone: Comment on above: [facility] [address] [place], [address] Platelets #/vol (Bld) 256 10*3/uL Normal 150-450 Co mprehensive Internal Medicine Work Phone: Comment on above: [facility] [address] [place], [address] RBC #/vol (Bld) 4.48 {M/mm3} Normal 4.2-5.4 Compreh ensive Internal Medicine Work Phone: Comment on above: [facility] [address] [place], [place], [phone] WBC #/vol (Bld) 9.0 10*3/uL Normal 4.4-11.0 Comprehe nsive Internal Medicine Work Phone: Comment on above: [facility] [address] [place], [address] CBC-Complete Blood Cnt No Diff 38.8 fL Normal 35.1-43.9 [facility] Work Phone: Comment on above: [facility] [address] [place], [address] BREAST BIOPSY (CHOOSE SITE)O rdered By: Calcine Furnace Tender on 03-29-2017 BREAST BIOPSY (CHOOSE SITE) See Note Normal [facility] Work Phone: Comment on above: Patient: PAT SORTO : 1960 (57/F) Acct Num: [id number] Phys: Nusrat NARAYAN,Subhash Unit Num: [id number] Loc: LABSPEC Specimen: [id number] Received: 03/29/171713 Spec Type: BREAST BX TISSUES TISSUES: Left breast, NOS ADDENDUM Addendum Number 1 This addendum is added to incorporate an outside pathology consultation report. The case was examined at [facility] (#[id number]) and the following diagnosis was rendered. Left breast, core needle biopsy: Invasive ductal carcinoma, nuclear grade 2. Focal ductal carcinoma in situ, nuclear grade 2, cribriform type. Please see complete above mentioned consultation report in EMR Addendum Signed Julius Sheffield 09/04/17 COMMENT Immunohistochemistry ([id number]) supports the above diagnosis. ER/GA/Hqq5dxp studies are being performed on sections of tumor and the results from this study will be reported separately ([id number]). Please make reference to previous specimen ([id number]) left breast, core biopsy with diagnosis of [...] one cassette. / ARNOLDO:dru 04/02/17 TC:0 CPT: 84954 HEADER OPERATION: Left breast core biopsy PRE-OP DIAGNOSIS: Left breast lump TISSUE SUBMITTED: Left breast tissue ISCHEMIC TIME: 1 minute FIXATION TIME: 101 hours MICROSCOPIC DESCRIPTION Slides are reviewed. MICROSCOPIC DIAGNOSIS Left breast, core biopsy: Invasive ductal carcinoma, nuclear grade 2 (1.3 cm in greatest length). See comment. ARNOLDO:dru 04/03/17 Signed Julius Sheffield 04/04/17 [facility] [place], [address] IMMUNOHISTOCHEMISTRYOrdered By: Calcine Furnace Tender on 03-29-2017 IMMUNOHISTOCHEMISTRY See Note Normal Comp rehensive Internal Medicine Work Phone: Comment on above: Patient: PAT SORTO : 1960 (57/F) Acct Num: [id number] Phys: Subhash Silverio MD Unit Num: [id number] Loc: LABSPEC Specimen: [id number] Received: 04/03/17 - 1011 Spec Type: IMMUNO TISSUES TISSUES: Left breast, NOS SPECIMEN INFORMATION: Tissue Source: Left breast Clinical Info: Left breast lump Specimen Number: [id number] CPT code: 63202, 68724 x4, 03798 x3 METHODOLOGY: Deparaffinized sections of prefer/formalin-fixed tissue or PAP/DQ stained slides are incubated with monoclonal/polyclonal antibodies/oligonucleotide probes. Localization is made via biotin free immunoperoxidase method. Appropriate controls are performed and reacted as expected. Results on target cell population are indicated in the following table: RESULTS: ANTIBODY / CLONE RESULT E-Cad (ECH-6) positive CK8 (29jusoR69) positive CK5-6 (D5 AND 1684) negative Ki-67 (30-9) positive, moderate P53 (DO-7) positive, weak, rare cells MORPHOMETRIC ANALYSIS ER (clone 6F11) >95%, strong GA (clone 16/1E2) >95%, strong Her-2Neu (clone CB11) 0 The prognostic test for HER2 is performed on formalin-fixed paraffin embedded tissue. A 3+ (positive) staining pattern is defined as intense, homogeneous, complete, circumferential membranous staining in >10% of contiguous tumor cells. A similar weak (2+) staining pattern is interpreted as equivocal. DIEGO follow-up testing is recommended for all equivocal cases. Positivity/negativity for ER/GA is reported if > or < 1% of the tumor cells are immuno- reactive, respectively. The ASCO/CAP criteria is used for scoring. Reference: Journal of Clinical Oncology, 2013; 31:7328-0071 AND 2010; 16:5820-3749. Duration of fixation: 99 Hrs; Sample Adequate: Yes. These assays have not been validated on decalcified tissues. Results should beinterpreted with caution given the likelihood of false negativity on decalcifiedspecimens. These tests were developed and their performance characteristics determined by [facility]. They may not have been cleared or approved by the U.S. Food and Drug Administration. The FDA has determined that such clearance or approval is not necessary. INTERPRETATION: Left breast, core biopsy: Invasive ductal carcinoma, nuclear grade 2. Positive for estrogen receptors (favorable prognostic indicator). Positive for progesterone receptors (favorable prognostic indicator). Negative for overexpression of UGR3jld. SJ:dru 04/04/17 PHYSICIAN AND INSTITUTION [facility] [address] [place] [address] Signed Julius Sheffield 04/04/17 [facility] [address] [place], [address] CBC W/AUTO DIFF WBC (36527)O rdered By: Calcine Furnace Tender on 03-15-2017 Basophils #/vol (Bld) 0.0 {x10E3/uL} Normal 0.0-0.2 [facility] Work Phone: Comment on above: PATIENT WAS FASTINGP ERFORMED BY: LabCoLoveland TechnologiesWnhqii1238 [facility] [id number] Basophils/100 WBC (Bld) 0 % Normal C omprehensive Internal Medicine Work Phone: Comment on above: PATIENT WAS FASTINGP ERFORMED BY: [employer] Efpasx2702 [facility] [id number] Eosinophils #/vol (Bld) 0.1 {x10E3/uL} Normal 0.0-0.4 [facility] Work Phone: Comment on above: PATIENT WAS FASTINGP ERFORMED BY: YouNoodle6370 [facility] [id number] Eosinophils/100 WBC (Bld) 1 % Normal [facility] Work Phone: Comment on above: PATIENT WAS FASTINGP ERFORMED BY: [employer] Sozbcm1689 [facility] [id number] Erythrocyte distribution width Ratio (RBC) 12.7 % Normal 12.3-15.4 [facility] Work Phone: Comment on above: PATIENT WAS FASTINGP ERFORMED BY: LUIS F Ricks[address] [facility] [id number] Hematocrit Volume Fraction (Bld) 37.1 % Normal 34.0-46.6 [facility] Work Phone: Comment on above: PATIENT WAS FASTINGP ERFORMED BY: LUIS F Ricks6370 [facility] [id number] Hemoglobin mass conc (Bld) 12.2 g/dL Normal 11.1-15.9 [facility] Work Phone: Comment on above: Please note refere nce interval change PATIENT WAS FASTINGP ERFORMED BY: LUIS F Byrdlin6370 [facility] [id number] Immature granulocytes #/vol (Bld) 0.0 {x10E3/uL} Normal 0.0-0.1 [facility] Work Phone: Comment on above: PATIENT WAS FASTINGP ERFORMED BY: LUIS F Byrdlin6370 [facility] [id number] Immature granulocytes/100 WBC (Bld) 0 % Normal [facility] Work Phone: Comment on above: PATIENT WAS FASTINGP ERFORMED BY: LUIS F Byrdlin6370 [facility] [id number] Lymphocytes #/vol (Bld) 2.0 {x10E3/uL} Normal 0.7-3.1 [facility] Work Phone: Comment on above: PATIENT WAS FASTINGP ERFORMED BY: LUIS F MichaelHibushra ByrdHjjngo4392 [facility] [id number] Lymphocytes/100 WBC (Bld) 27 % Normal [facility] Work Phone: Comment on above: PATIENT WAS FASTINGP ERFORMED BY: LUIS F Byrdlin6370 [facility] [id number] MCH Entitic mass (RBC) 30.1 pg Normal 26.6-33.0 [facility] Internal Medicine Work Phone: Comment on above: PATIENT WAS FASTINGP ERFORMED BY: LUIS F [facility]Progress [facility] Ucdrtm[address] [facility] [place] [id number] MCHC mass conc (RBC) 32.9 g/dL Normal 31.5-35.7 [facility] Internal Medicine Work Phone: Comment on above: PATIENT WAS FASTINGP ERFORMED BY: LUIS F LabCo Tzxzdm[address]32 [address] [facility] [place] [id number] MCV Entitic volume (RBC) 92 fL Normal 79-97 [facility] Work Phone: Comment on above: PATIENT WAS FASTINGP ERFORMED BY: LUIS F LabCo Kthdjm6983 [address] RoadScionhealthin [place] [id number] Monocytes #/vol (Bld) 0.5 {x10E3/uL} Normal 0.1-0.9 [facility] Work Phone: Comment on above: PATIENT WAS FASTINGP ERFORMED BY: LUIS F [facility] Wzanzh[address]05 [address] [facility] [id number] Monocytes/100 WBC (Bld) 7 % Normal C [facility] Internal Medicine Work Phone: Comment on above: PATIENT WAS FASTINGP ERFORMED BY: LUIS F LabProgress [facility] Rfyjys7946 [address] [facility] [place] [id number] Neutrophils #/vol (Bld) 5.0 {x10E3/uL} Normal 1.4-7.0 [facility] Work Phone: Comment on above: PATIENT WAS FASTINGP ERFORMED BY: LUIS F LabProgress [facility] Emmppr0510 [address] [facility] [id number] Neutrophils/100 WBC (Bld) 65 % Normal [facility] Work Phone: Comment on above: PATIENT WAS FASTINGP ERFORMED BY: LUIS F LabProgress [facility] Cgfziy5524 [address] RoadDublin [place] [id number] Platelets #/vol (Bld) 250 {x10E3/uL} Normal 150-379 [facility] Work Phone: Comment on above: PATIENT WAS FASTINGP ERFORMED BY: LUIS F [facility]Progress [facility] Zpgqxy2844 [address] RoadDublin [place] [id number] RBC #/vol (Bld) 4.05 {x10E6/uL} Normal 3.77-5.28 [facility] Hospital[facility] Work Phone: Comment on above: PATIENT WAS FASTINGP ERFORMED BY: LUIS F [facility] Nhzgte7902 [address] RoadDublin [place] [id number] WBC #/vol (Bld) 7.7 {x10E3/uL} Normal 3.4-10.8 [facility] Internal Medicine Work Phone: Comment on above: PATIENT WAS FASTINGP ERFORMED BY: CB [facility] Tsiyyv6536 [address] RoadDublin [place] [id number] LIPID PANEL (79040)Ordered B y: Calcine Furnace Tender on 03-15-2017 Cholesterol in HDL mass conc 40 mg/dL Normal [facility] Work Phone: Comment on above: PATIENT WAS FASTINGP ERFORMED BY: LUIS F [facility] Nfpxsw1006 [address] RoadDublin [place] [id number] Cholesterol in LDL mass conc 107 mg/dL Abnormal 0-99 [facility] Work Phone: Comment on above: PATIENT WAS FASTINGP ERFORMED BY: LUIS F [facility] Axpywl0904 [address] RoadDublin [place] [id number] Cholesterol in LDL/Cholesterol in HDL mass ratio 2.7 {ratio_units} Normal 0.0-3.2 [facility] Work Phone: Comment on above: LDL/HDL Ratio Men Wo men 1/2 Avg.Risk 1.0 1.5 Avg.Risk 3.6 3.2 2X Avg.Risk 6.2 5.0 3X Avg.Risk 8.0 6.1 PATIENT WAS FASTINGP ERFORMED BY: LUIS F [facility] Olwdjn9071 [address] RoadDublin [place] [id number] Cholesterol in VLDL mass conc 29 mg/dL Normal 5-40 [facility] Work Phone: Comment on above: PATIENT WAS FASTINGP ERFORMED BY: LUIS F [facility] Siyupg3492 [address] RoadDublin [place] [id number] Cholesterol mass conc 176 mg/dL Normal 100-199 [facility] Work Phone: Comment on above: PATIENT WAS FASTINGP ERFORMED BY: LUIS F [facility] Lbvjis0868 [address] RoadDublin [place] [id number] Triglyceride mass conc 144 mg/dL Normal 0-149 Co [facility] Internal Medicine Work Phone: Comment on above: PATIENT WAS FASTINGP ERFORMED BY: LUIS F [facility] Yfvzrt[address] [facility]in [place] [id number] METABOLIC PANEL, COMPREHENSI VE (78388)Ordered By: Calcine Furnace Tender on 03-15-2017 Albumin mass conc 4.1 g/dL Normal 3.5-5.5 Compreh [facility] Internal Medicine Work Phone: Comment on above: PATIENT WAS FASTINGP ERFORMED BY: LabCo Xvliwm5699 [address] [facility] [id number] Albumin/Globulin mass ratio 1.3 {ratio} Normal 1.2-2.2 [facility] Work Phone: Comment on above: PATIENT WAS FASTINGP ERFORMED BY: Lab[facility] Czetju8619 [address] [facility]in [place] [id number] ALP enzyme act/vol 86 [iU]/L Normal 39-117 [facility] Internal Medicine Work Phone: Comment on above: PATIENT WAS FASTINGP ERFORMED BY: Lab[facility] Gqtdug7437 [address] [facility]in [place] [id number] ALT enzyme act/vol 12 [iU]/L Normal 0-32 [facility] Internal Medicine Work Phone: Comment on above: PATIENT WAS FASTINGP ERFORMED BY: Lab[facility] Gckjqr3557 [address] [facility]in [place] [id number] AST enzyme act/vol 19 [iU]/L Normal 0-40 [facility] Internal Medicine Work Phone: Comment on above: PATIENT WAS FASTINGP ERFORMED BY: [facility] Hyawep3824 [address] [facility]in [place] [id number] Bilirubin mass conc 0.4 mg/dL Normal 0.0-1.2 [facility] Internal Medicine Work Phone: Comment on above: PATIENT WAS FASTINGP ERFORMED BY: LUIS F [facility] Jppvvd9305 [address] RoadDublin [place] [id number] Calcium mass conc 9.5 mg/dL Normal 8.7-10.2 Compreh ensive Internal Medicine Work Phone: Comment on above: PATIENT WAS FASTINGP ERFORMED BY: CB [facility] Gibbiz1070 [address] RoadDublin [place] [id number] Chloride molar conc 99 mmol/L Normal 96-106 Compr ehensive Internal Medicine Work Phone: Comment on above: PATIENT WAS FASTINGP ERFORMED BY: LUIS F [facility] Renfxd2974 [address] RoadDublin [place] [id number] CO2 molar conc 27 mmol/L Normal 18-29 Comprehens [facility]a Internal Medicine Work Phone: Comment on above: PATIENT WAS FASTINGP ERFORMED BY: LUIS F [facility] Rinttp0085 [address] RoadScionhealthin [place] [id number] Creatinine mass conc 0.95 mg/dL Normal 0.57-1.00 Comp [facility]erensive Internal Medicine Work Phone: Comment on above: PATIENT WAS FASTINGP ERFORMED BY: LabCo Hzposc4440 [address] Roadblin [place] [id number] GFR/1.73 sq M predicted among blacks CKD-EPI vol rate/area (S/P/Bld) 76 mL/min/1.73 Normal Comprehe ive Internal Medicine Work Phone: Comment on above: PATIENT WAS FASTINGP ERFORMED BY: [facility] Lkxixj7790 [address] RoadDuin [place] [id number] GFR/1.73 sq M predicted among non-blacks CKD-EPI vol rate/area (S/P/Bld) 66 mL/min/1.73 Normal [facility] Work Phone: Comment on above: PATIENT WAS FASTINGP ERFORMED BY: CB [facility] Acnsjh0856 [address]Dublin [place] [id number] Globulin mass conc (S) 3.2 g/dL Normal 1.5-4.5 Co mprensive Internal Medicine Work Phone: Comment on above: PATIENT WAS FASTINGP ERFORMED BY: LUIS F [facility] Grvpdz1654 [address] RoadDublin [place] [id number] Glucose mass conc 99 mg/dL Normal 65-99 Compreh ensive Internal Medicine Work Phone: Comment on above: PATIENT WAS FASTINGP ERFORMED BY: LUIS F LabKendy ByrdCftjmo2880 [address] RoadDublin [place] [id number] Potassium molar conc 4.1 mmol/L Normal 3.5-5.2 Comp rehensive Internal Medicine Work Phone: Comment on above: PATIENT WAS FASTINGP ERFORMED BY: LUIS F [facility] Qmbqio6211 [address] RoadDublin [place] [id number] Protein mass conc 7.3 g/dL Normal 6.0-8.5 Compreh ensive Internal Medicine Work Phone: Comment on above: PATIENT WAS FASTINGP ERFORMED BY: LUIS F LabCobushra ByrdKnmmgl2616 [address] RoadDublin [place] [id number] Sodium molar conc 140 mmol/L Normal 134-144 Compreh ensive Internal Medicine Work Phone: Comment on above: PATIENT WAS FASTINGP ERFORMED BY: LUIS F LabCobushra ByrdFfkmou1578 [address] RoadDublin [place] [id number] Urea nitrogen mass conc 22 mg/dL Normal 6-24 C omprehensive Internal Medicine Work Phone: Comment on above: PATIENT WAS FASTINGP ERFORMED BY: LUIS F LabKendy ByrdMsylwv6404 [address]Dublin [place] [id number] Urea nitrogen/Creatinine mass ratio 23 mg/mg Normal 9-23 [facility] Work Phone: Comment on above: PATIENT WAS FASTINGP ERFORMED BY: LUIS F [facility] Zuhate4752 [address] RoadDublin [place] [id number] MICROALBUMINOrdered By: Syst em Spray Cementer on 03-15-2017 Albumin DL <= 20 mg/L mass conc (U) 6.1 ug/mL Normal [facility] Work Phone: Comment on above: PATIENT WAS FASTINGP ERFORMED BY: LUIS F [facility] Wotrde6957 [address]Dublin [place] [id number] Albumin/Creatinine mass ratio (U) 3.1 {mg/g_creat} Normal 0.0-30.0 [facility] Work Phone: Comment on above: PATIENT WAS FASTINGP ERFORMED BY: [facility] Rexddf9463 [address]Dublin [place] [id number] Creatinine mass conc (U) 196.5 mg/dL Normal [facility] Work Phone: Comment on above: PATIENT WAS FASTINGP ERFORMED BY: [facility] Zhhmms9894 [address]bl[address] [place] [id number] Microscopic ExaminationOrder ed By: Calcine Furnace Tender on 03-15-2017 Bacteria LM.HPF #/area (Urine sed) Few Normal [facility] Work Phone: Comment on above: PATIENT WAS FASTINGP ERFORMED BY: [facility] Rfbqrc8034 [address] [facility]in [place] [id number] Casts LM Nom (Urine sed) Hyaline casts Normal [facility] Work Phone: Comment on above: PATIENT WAS FASTINGP ERFORMED BY: [facility] Osbzuy8987 [address]Dublin [place] [id number] Casts LM Ql (Urine sed) Present Abnormal C omprehensive Internal Medicine Work Phone: Comment on above: PATIENT WAS FASTINGP ERFORMED BY: [facility] Kophev0920 [address] [facility]in [place] [id number] Epithelial cells LM.HPF #/area (Urine sed) None seen Normal 0 - 10 [facility] Work Phone: Comment on above: PATIENT WAS FASTINGP ERFORMED BY: [facility] Hkmtkb5878 [address]bl[address] [place] [id number] Mucus Ql (Urine sed) Present Normal Comp rehensive Internal Medicine Work Phone: Comment on above: PATIENT WAS FASTINGP ERFORMED BY: [facility] Aulcae8871 [address]Dublin [place] [id number] RBC LM.HPF #/area (Urine sed) None seen Normal 0 - 2 [facility] Work Phone: Comment on above: PATIENT WAS FASTINGP ERFORMED BY: LUIS F [facility] Pqfwiw5440 [address]Dublin [place] [id number] WBC LM.HPF #/area (Urine sed) 0-5 Normal 0 - 5 [facility] Work Phone: Comment on above: PATIENT WAS FASTINGP ERFORMED BY: LUIS F [facility] Xjkilz7325 [address] RoadDublin [place] [id number] TSH ([id number])Ordered By: Carnet de Modee m Spray Cementer on 03-15-2017 Thyrotropin Qn 1.510 {uIU/mL} Normal 0.450-4.50 0 [facility] Work Phone: Comment on above: PATIENT WAS FASTINGP ERFORMED BY: LUIS F [facility] Mifvmo3760 [address] RoadDublin [place] [id number] URINALYSIS, W/ MICRO ([id number]) Ordered By: Calcine Furnace Tender on 03-15-2017 Appearance Nom (U) Clear Normal Compre hensive Internal Medicine Work Phone: Comment on above: PATIENT WAS FASTINGP ERFORMED BY: LUIS F [facility] Chxhiv0508 [address] RoadDublin [place] [id number] Bilirubin Ql (U) Negative Normal Comprehe nsive Internal Medicine Work Phone: Comment on above: PATIENT WAS FASTINGP ERFORMED BY: LUIS F [facility] Xzgvrz0948 [address] RoadDublin [place] [id number] Color Nom (U) Yellow Normal Comprehensi ve Internal Medicine Work Phone: Comment on above: PATIENT WAS FASTINGP ERFORMED BY: LUIS F [facility] Micwrn8789 [address] RoadDublin [place] [id number] Glucose Ql (U) Negative Normal Comprehens leda Internal Medicine Work Phone: Comment on above: PATIENT WAS FASTINGP ERFORMED BY: LUIS F [facility] Tbjgbb3461 [address] RoadDublin [place] [id number] Hemoglobin Ql (U) Negative Normal Compreh ensive Internal Medicine Work Phone: Comment on above: PATIENT WAS FASTINGP ERFORMED BY: LUIS F [facility] Fvpooz3669 [address] RoadDublin [place] [id number] Ketones Ql (U) Negative Normal Comprehens leda Internal Medicine Work Phone: Comment on above: PATIENT WAS FASTINGP ERFORMED BY: LUIS F Ricks6370 [facility] [id number] Leukocyte esterase Test strip Ql (U) Negative Normal [facility] Work Phone: Comment on above: PATIENT WAS FASTINGP ERFORMED BY: LUIS F Ricks6370 [facility] [id number] Microscopic observation LM Nom (Urine sed) MICRON Normal [facility] Work Phone: Comment on above: Microscopic follows if indicated. PATIENT WAS FASTINGP ERFORMED BY: LUIS F Ricks6370 [facility] [id number] Microscopic observation LM Nom (Urine sed) See below: Normal [facility] Work Phone: Comment on above: Microscopic was brittany cated and was performed. PATIENT WAS FASTINGP ERFORMED BY: LUIS F Byrdlin6370 [facility] [id number] Nitrite Ql (U) Negative Normal Comprehens leda Internal Medicine Work Phone: Comment on above: PATIENT WAS FASTINGP ERFORMED BY: LUIS F Ricks6370 [facility] [id number] pH (U) 5.0 [pH] Normal 5.0-7.5 [facility] Work Phone: Comment on above: PATIENT WAS FASTINGP ERFORMED BY: LUIS F Byrdlin6370 [facility] [id number] Protein Ql (U) Negative Normal Comprehens leda Internal Medicine Work Phone: Comment on above: PATIENT WAS FASTINGP ERFORMED BY: LUIS F Ricks6370 [facility] [id number] Specific gravity Relative Density (U) 1.026 1 Normal 1.005-1.03 0 [facility] Work Phone: Comment on above: PATIENT WAS FASTINGP ERFORMED BY: LUIS F Byrdlin6370 [facility] [id number] Urobilinogen Test strip mass conc (U) 0.2 mg/dL Normal 0.2-1.0 [facility] Work Phone: Comment on above: PATIENT WAS FASTINGP ERFORMED BY: LUIS F LabCoLoveland TechnologiesYtykpd6062 [facility] [id number] HgA1C , Office ([id number])Ordere d By: Zee Avila on 03-14-2017 Hemoglobin A1c/Hemoglobin.total mass fraction (Bld) 5.9 % Normal 4.6 - 7.1 Comprehensiv e Internal Medicine Work Phone: HPV automatic (52325)Ordered By: Calcine Furnace Tender on 02-11-2017 HPV 16+18+31+33+35+39+45+51 +52+56+58+59+68 DNA Probe+sig amp Ql (Cvx) Negative Normal Comprehen sive Internal Medicine Work Phone: Comment on above: This high-risk HPV t est detects thirteen high-risk types(16/18/31/33/35/39/45/51/52/56/58/59/68) without differentiation. . Source.............C ervix;EndocervixNo. of containers..01 ThinPrep VialPATIENT NOT FASTINGPERFORMED BY: [employer] W [id number] BY: =G [facility] Wahnhbgopa449 Fit FugitivesrLeanStream Media PA [id number] Information: [id number] Microscopic observation Other stain Nom (Unsp spec) . Normal [facility] Work Phone: Comment on above: Source.............C ervix;EndocervixNo. of containers..01 ThinPrep VialPATIENT NOT FASTINGPERFORMED BY: WB LabEcovative Design120 [employer] W [id number] BY: =G [facility] Rtjmxcjreb848 Fit FugitivesrLeanStream Media PA [id number] Information: [id number] Pathology report final diagnosis Narrative SPRCS Normal Comprehensiv e Internal Medicine Work Phone: Comment on above: NEGATIVE FOR INTRAEP ITHELIAL LESION AND MALIGNANCY.THIS SPECIMEN WAS RESCREENED PART OF OUR RADIOLOGIC TECHNOLOGY TEACHER PROGRAM.Satisfactory for evaluation. Endocervical and/or squamous metaplasticcells (endocervical component) are present.Z11.51Scott Janee Morgan, Hvac Engineering Technician (ASC)Alee Schulte, Supervisory Hvac Engineering Technician (ASCP) Source.............C ervix;EndocervixNo. of containers..01 ThinPrep VialPATIENT NOT FASTINGPERFORMED BY: WB Symvato120 Fit FugitivesrTixAlertton W [id number] BY: =G Symvato120 PointworthyzaZokemrleston [place] [id number] Information: [id number] HPV automatic (53688) PAPSMR Normal [facility] prehensive Internal Medicine Work Phone: Comment [...] containers..01 ThinPrep VialPATIENT NOT FASTINGPERFORMED BY: WB Symvato120 whoplusyou PlaeMoneyUnionrTixAlertton [place] [id number] BY: =G Symvato120 whoplusyou PlazaZokemrleston [place] [id number] Information: [id number] CBC-Complete Blood Cnt No Di ffOrdered By: Calcine Furnace Tender on 01-14-2017 Erythrocyte distribution width Ratio (RBC) 12.2 % Normal 11.6-14.6 [facility] Work Phone: Comment on above: [facility] [address] [place], [place], [phone] Hematocrit Volume Fraction (Bld) 37.5 % Normal 37-47 [facility] Work Phone: Comment on above: [facility] [address] [place], [address] Hemoglobin mass conc (Bld) 12.2 g/dL Normal 12.0-15.0 [facility] Internal Medicine Work Phone: Comment on above: [facility] [address] [place], [address] MCH Entitic mass (RBC) 29.6 pg Normal 27.0-32.0 Co [facility] Internal Medicine Work Phone: Comment on above: [facility] [address] [place], [address] MCHC mass conc (RBC) 32.5 {g/gl} Normal 32-36 Com prehensive Internal Medicine Work Phone: Comment on above: [facility] [address] [place], [address] MCV Entitic volume (RBC) 91.0 fL Normal 81-99 [facility] Internal Medicine Work Phone: Comment on above: [facility] [address] [place], [address] Platelet mean volume Entitic volume (Bld) 11.6 fL Normal 6.2-12.0 [facility] Work Phone: Comment on above: [facility] [address] [place], [address] Platelets #/vol (Bld) 237 10*3/uL Normal 150-450 Co [facility] Work Phone: Comment on above: [facility] [address] [place], [place], [address] RBC #/vol (Bld) 4.12 {M/mm3} Abnormal 4.2-5.4 Compreh ensive Internal Medicine Work Phone: Comment on above: [facility] [address] [place], [place], [phone] WBC #/vol (Bld) 8.9 10*3/uL Normal 4.4-11.0 Comprehe nsive Internal Medicine Work Phone: Comment on above: [facility] [address] [place], [place], [address] CBC-Complete Blood Cnt No Diff 40.7 fL Normal 35.1-43.9 [facility] Work Phone: Comment on above: [facility] [address] [place], [address] Liver ProfileOrdered By: Tejal tem Spray Cementer on 01-14-2017 Albumin mass conc 3.8 g/dL Normal 3.4-5.0 Compreh ensive Internal Medicine Work Phone: Comment on above: [facility] [address] [place], [place], [phone] ALP enzyme act/vol 95 U/L Normal 45-117 Compre [facility] Work Phone: Comment on above: [facility] [address] [place], [place], [address] ALT enzyme act/vol 23 U/L Normal 12-78 Compre hensive Internal Medicine Work Phone: Comment on above: [facility] [address] [place], [address] AST enzyme act/vol 19 U/L Normal 15-37 Compre [facility] Work Phone: Comment on above: [facility] [address] [place], [address] Bilirubin mass conc 0.30 mg/dL Normal 0.20-1.00 [facility] Work Phone: Comment on above: [facility] [address] [place], [address] Bilirubin.direct mass conc 0.09 mg/dL Normal 0.00-0.30 [facility] Work Phone: Comment on above: [facility] [address] [place], [address] Globulin mass conc (S) 4.1 g/dL Abnormal 2.3-3.5 [facility] Internal Medicine Work Phone: Comment on above: [facility] [address] [place], [address] Protein mass conc 7.9 g/dL Normal 6.4-8.2 [facility] Internal Medicine Work Phone: Comment on above: [facility] [address] [place], [address] Prothrombin Time w/INROrdere d By: Calcine Furnace Tender on 01-14-2017 INR Coag RelTime (PPP) 1.0 {INR} Normal Co [facility] Internal Medicine Work Phone: Comment on above: [facility] [address] [place], [address] Prothrombin time (PT) Coag time (PPP) 13.0 s Normal 11.7-14.9 [facility] Internal Medicine Work Phone: Comment on above: [facility] [address] [place], [address] Vitamin D,25 HydroxyOrdered By: Calcine Furnace Tender on 01-14-2017 Vitamin D,25 Hydroxy 41.1 ng/mL Normal [facility] Internal Medicine Work Phone: Comment on above: Vitamin D 25(OH) Sta tus Range Deficiency <20 ng/mL (50nmol/L) Insuffciency 20 - 30 ng/mL (50 - 75 nmol/L) Sufficiency 30 - 100 ng/mL (75 - 250 nmol/L) Toxicity >100 ng/mL (>250 nmol/L) [facility] [address] [place], [place], [phone] Rapid Flu (81087 x 2)Ordered By: Leandra Alex on 06-13-2015 FLUAV Ag IA Ql (Throat) neg a and b Normal [facility] Work Phone: GGTPOrdered By: System Manag er on 01-12-2015 GGTP 40 U/L Normal 5-55 [facility] Work Phone: Comment on above: [facility] [address] [place], [place], [phone] Liver ProfileOrdered By: Tejal tem Spray Cementer on 01-12-2015 Albumin mass conc 3.4 g/dL Normal 3.4-5.0 Compreh ensive Internal Medicine Work Phone: Comment on above: [facility] [address] [place], [place], [address] ALP enzyme act/vol 95 U/L Normal 50-136 Compre [facility] Work Phone: Comment on above: [facility] [address] [place], [place], [address] ALT enzyme act/vol 23 U/L Normal 12-78 Compre [facility] Work Phone: Comment on above: [facility] [address] [place], [address] AST enzyme act/vol 20 U/L Normal 15-37 Compre hensive Internal Medicine Work Phone: Comment on above: [facility] [address] [place], [place], [phone] Bilirubin mass conc 0.30 mg/dL Normal 0.20-1.00 Compr ehensive Internal Medicine Work Phone: Comment on above: [facility] [address] [place], [place], [address] Bilirubin.direct mass conc 0.10 mg/dL Normal 0.00-0.30 [facility] Work Phone: Comment on above: [facility] [address] [place], [place], [address] Globulin mass conc (S) 4.0 g/dL Abnormal 2.3-3.5 Co mprehensive Internal Medicine Work Phone: Comment on above: [facility] [address] [place], [place], [address] Protein mass conc 7.4 g/dL Normal 6.4-8.2 Compreh ensive Internal Medicine Work Phone: Comment on above: [facility] [address] [place], [place], [address] Comp. Metabolic Panel (14)Or dered By: Calcine Furnace Tender on 10-18-2014 Albumin mass conc 4.4 g/dL Normal 3.5-5.5 Compreh ensive Internal Medicine Work Phone: Comment on above: PATIENT NOT FASTINGP ERFORMED BY: CB [facility] Esrskn7413 [facility] [id number] Information: [id number] Albumin/Globulin mass ratio 1.4 {ratio} Normal 1.1-2.5 [facility] Work Phone: Comment on above: PATIENT NOT FASTINGP ERFORMED BY: CB [facility] Vcujnp3160 [facility] [id number] Information: [id number] ALP enzyme act/vol 101 [iU]/L Normal 39-117 Compre [facility] Internal Medicine Work Phone: Comment on above: PATIENT NOT FASTINGP ERFORMED BY: CB [facility] Wswbzd0576 [facility] [id number] Information: [id number] ALT enzyme act/vol 19 [iU]/L Normal 0-32 Compre [facility] Internal Medicine Work Phone: Comment on above: PATIENT NOT FASTINGP ERFORMED BY: LUIS F [facility] Egwpgf[address] [facility]in [place] [id number] Information: [id number] AST enzyme act/vol 24 [iU]/L Normal 0-40 Compre [facility] Internal Medicine Work Phone: Comment on above: PATIENT NOT FASTINGP ERFORMED BY: CB [facility] Cxgeoe9001 [address] [facility] [id number] Information: [id number] Bilirubin mass conc 0.4 mg/dL Normal 0.0-1.2 Compr ensive Internal Medicine Work Phone: Comment on above: PATIENT NOT FASTINGP ERFORMED BY: LUIS F MichaelCobushra ByrdAnfqdv0288 [facility] [id number] Information: [id number] Calcium mass conc 10.0 mg/dL Normal 8.7-10.2 Compreh [facility] Work Phone: Comment on above: PATIENT NOT FASTINGP ERFORMED BY: LUIS F [facility] Pbzcll4882 [facility] [id number] Information: [id number] Chloride molar conc 101 mmol/L Normal 97-108 Compr ensive Internal Medicine Work Phone: Comment on above: PATIENT NOT FASTINGP ERFORMED BY: LUIS F [facility] Jqpesq0654 [facility] [id number] Information: [id number] CO2 molar conc 25 mmol/L Normal 18-29 Comprehens [facility]a Internal Medicine Work Phone: Comment on above: PATIENT NOT FASTINGP ERFORMED BY: CB [facility] Hoxgdh[address]93 [address] [facility] [id number] Information: [id number] Creatinine mass conc 0.88 mg/dL Normal 0.57-1.00 Comp [facility]eren[facility]ive Internal [facility] Work Phone: Comment on above: PATIENT NOT FASTINGP ERFORMED BY: CB [facility] Lkppst4940 [address] RoadDublin [place] [id number] Information: [id number] GFR/1.73 sq M predicted among blacks CKD-EPI vol rate/area (S/P/Bld) 86 mL/min/1.73 Normal Comprehe nsive Internal Medicine Work Phone: Comment on above: PATIENT NOT FASTINGP ERFORMED BY: LUIS F Byrdlin6370 [facility] [id number] Information: [id number] GFR/1.73 sq M predicted among non-blacks CKD-EPI vol rate/area (S/P/Bld) 74 mL/min/1.73 Normal [facility] Work Phone: Comment on above: PATIENT NOT FASTINGP ERFORMED BY: LUIS F Ricks6370 [facility] [id number] Information: [id number],[id number] Globulin mass conc (S) 3.1 g/dL Normal 1.5-4.5 Co mprehensive Internal Medicine Work Phone: Comment on above: PATIENT NOT FASTINGP ERFORMED BY: LUIS F Byrdlin6370 [facility] [id number] Information: [id number] Glucose mass conc 88 mg/dL Normal 65-99 Compreh ensive Internal Medicine Work Phone: Comment on above: PATIENT NOT FASTINGP ERFORMED BY: LUIS F Cohen Xcyzal9758 [facility] [id number] Information: [id number] Potassium molar conc 4.8 mmol/L Normal 3.5-5.2 Comp rehensive Internal Medicine Work Phone: Comment on above: PATIENT NOT FASTINGP ERFORMED BY: LUIS F Byrdlin6370 [facility] [id number] Information: [id number],[id number] Protein mass conc 7.5 g/dL Normal 6.0-8.5 Compreh ensive Internal Medicine Work Phone: Comment on above: PATIENT NOT FASTINGP ERFORMED BY: LUIS F [facility] Aosxxv1964 [address] [facility] [id number] Information: 866939,[id number] Sodium molar conc 141 mmol/L Normal 134-144 Compreh ensive Internal Medicine Work Phone: Comment on above: PATIENT NOT FASTINGP ERFORMED BY: LUIS F [facility] Rmkafy3195 [address] [facility] [id number] Information: [id number],[id number] Urea nitrogen mass conc 19 mg/dL Normal 6-24 C omprehensive Internal Medicine Work Phone: Comment on above: PATIENT NOT FASTINGP ERFORMED BY: LUIS F [facility] Bxqppr8606 [address] [facility] [id number] Information: [id number] Urea nitrogen/Creatinine mass ratio 22 mg/mg Normal 9-23 [facility] Work Phone: Comment on above: PATIENT NOT FASTINGP ERFORMED BY: LUIS F [facility] Klopsd2262 [facility] [id number] Information: [id number] Hepatic Function Panel (7)Or dered By: Calcine Furnace Tender on 10-18-2014 Bilirubin.direct mass conc 0.11 mg/dL Normal 0.00-0.40 [facility] Work Phone: Comment on above: PATIENT NOT FASTINGP ERFORMED BY: [facility] Hrvrht5915 [facility] [id number] Lipid Panel With LDL/HDL Rat ioOrdered By: Calcine Furnace Tender on 10-18-2014 Cholesterol in HDL mass conc 41 mg/dL Normal [facility] Work Phone: Comment on above: According to ATP-III Guidelines, HDL-C >59 mg/dL is considered anegative risk factor for CHD. PATIENT NOT FASTINGP ERFORMED BY: LUIS F [facility] Rpyiem5279 [address] [facility] [id number] Cholesterol in LDL mass conc 121 mg/dL Abnormal 0-99 [facility] Work Phone: Comment on above: PATIENT NOT FASTINGP ERFORMED BY: [facility] Zbpwsx4593 [address] [employer] [facility] ServicesScionhealthin [place] [id number] Cholesterol in LDL/Cholesterol in HDL mass ratio 3.0 {ratio_units} Normal 0.0-3.2 [facility] Work Phone: Comment on above: LDL/HDL Ratio Men Wo men 1/2 Avg.Risk 1.0 1.5 Avg.Risk 3.6 3.2 2X Avg.Risk 6.2 5.0 3X Avg.Risk 8.0 6.1 PATIENT NOT FASTINGP ERFORMED BY: CB [facility] Ngakdo1503 [address] [facility] [place] [id number] Cholesterol in VLDL mass conc 47 mg/dL Abnormal 5-40 [facility] Work Phone: Comment on above: PATIENT NOT FASTINGP ERFORMED BY: [facility] Xzjvsq6607 [address] [facility] [place] [id number] Cholesterol mass conc 209 mg/dL Abnormal 100-199 Com prehensive Internal Medicine Work Phone: Comment on above: PATIENT NOT FASTINGP ERFORMED BY: [facility] Zhyblg7121 [address] [facility] [place] [id number] Triglyceride mass conc 236 mg/dL Abnormal 0-149 Co [facility] Work Phone: Comment on above: PATIENT NOT FASTINGP ERFORMED BY: [facility] Szmtjw6644 [address] [facility] [id number] CALCIFEDIOL (08892)Ordered B y: Calcine Furnace Tender on 07-16-2014 25-Hydroxyvitamin D2+25-Hydroxyvitamin D3 mass conc 24.3 ng/mL Abnormal 30.0-100.0 [facility] Work Phone: Comment on above: Vitamin D deficiency has been defined by the [place] ofMedicine and an Endocrine Society practice guideline as alevel of serum 25-OH vitamin D less than 20 ng/mL (1,2).The Endocrine Society went on to further define vitamin Dinsufficiency as a level between 21 and 29 ng/mL (2).1. IOM ([place] of Medicine). 2010. Dietary reference intakes for calcium and D. [place]: The National Academies Press.2. Luanne MF, Tessy GONZALEZ, Amanda YOUSIF, et al. Evaluation, treatment, and prevention of vitamin D deficiency: an Endocrine Society clinical practice guideline. JCEM. 2010; 96(7):1911-30. PATIENT NOT FASTINGP ERFORMED BY: CB [facility] Saztjb6414 [address] RoadDublin [place] [id number] HEPATIC FUNCTION PANEL (8007 6)Ordered By: Calcine Furnace Tender on 07-16-2014 Albumin mass conc 4.2 g/dL Normal 3.5-5.5 [facility] Internal Medicine Work Phone: Comment on above: PATIENT NOT FASTINGP ERFORMED BY: CB [facility] Nvwjpi2469 [address] RoadDublin [place] [id number] Information: [id number] ALP enzyme act/vol 158 [iU]/L Abnormal 39-117 [facility] Internal Medicine Work Phone: Comment on above: PATIENT NOT FASTINGP ERFORMED BY: CB [facility] Masves8518 [address] RoadDublin [place] [id number] Information: [id number],[id number] ALT enzyme act/vol 30 [iU]/L Normal 0-32 [facility] Internal Medicine Work Phone: Comment on above: PATIENT NOT FASTINGP ERFORMED BY: CB [facility] Rhsttv9702 [address] RoadDublin [place] [id number] Information: [id number],[id number] AST enzyme act/vol 26 [iU]/L Normal 0-40 [facility] Internal [facility] Work Phone: Comment on above: PATIENT NOT FASTINGP ERFORMED BY: CB [facility] Dsieor0752 [address] RoadDublin [place] [id number] Information: [id number],I36701 Bilirubin mass conc 0.4 mg/dL Normal 0.0-1.2 Compr [facility] Internal Medicine Work Phone: Comment on above: PATIENT NOT FASTINGP ERFORMED BY: CB [facility] Xvjluq4578 [address] RoadDublin [place] [id number] Information: [id number] Bilirubin.direct mass conc 0.12 mg/dL Normal 0.00-0.40 [facility] Work Phone: Comment on above: PATIENT NOT FASTINGP ERFORMED BY: [facility] Hoimmr3458 [facility] [id number] Information: [id number],R34091 Protein mass conc 7.3 g/dL Normal 6.0-8.5 Compreh ensive Internal Medicine Work Phone: Comment on above: PATIENT NOT FASTINGP ERFORMED BY: LabCoKessler Institute for RehabilitationYjawqe8519 [facility] [id number] Information: 487704,[id number] IMMUNOHISTOCHEMISTRYOrdered By: Calcine Furnace Tender on 06-07-2014 IMMUNOHISTOCHEMISTRY See Note Normal Comp rehensive Internal Medicine Work Phone: Comment on above: Patient: PAT SORTO : 1960 (54/F) Acct Num: [id number] Phys: Ney Hart Unit Num: [id number] Loc: [facility] Specimen: [id number] Received: 06/09/141215 Spec Type: IMMUNO TISSUES TISSUES: SPECIMEN INFORMATION: Tissue Source: Liver, biopsy Clinical Info: Cirrhosis Specimen Number: [id number] CPT code: 99158 METHODOLOGY: Deparaffinized sections of prefer/formalin-fixed tissue or [...] developed and their performance characteristics determined by [facility]. They may not have been cleared or approved by the U.S. Food and Drug Administration. The FDA has determined that such clearance or approval is not necessary. INTERPRETATION: Liver biopsy: Decreased number of bile ducts are noted. Comment: Only a limited tissue is present. 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 Immunohistochemistry ([id number]) supports the above diagnosis. This case is [...] one cassette. / SJ:libertad 06/07/14 TC:5 CPT: 48187, 54612 x5 HEADER OPERATION: CT guided liver biopsy [...] Focal piecemeal necrosis is also noted. Immunohistochemistry ([id number]) shows decreased number of bile ducts. However, [...] [place] 06/10/14 Partial Thromboplast TimeOrd ered By: Calcine Furnace Tender on 06-03-2014 aPTT Coag time (Bld) 33.2 s Normal 24.1-36.2 [facility] Internal Medicine Work Phone: Comment on above: Has pt arrived? YHas pt arrived? YTest performed at:[facility] [address] [place] [address] Platelet CountOrdered By: Notifo stem Spray Cementer on 06-03-2014 Platelets #/vol (Bld) 296 10*3/uL Normal 150-450 Co [facility] Internal Medicine Work Phone: Comment on above: Has pt arrived? YTes t performed at:[facility] [address] [place] [address] Prothrombin Time w/INROrdere d By: Calcine Furnace Tender on 06-03-2014 INR Coag RelTime (PPP) 0.9 {INR} Normal [facility] Internal Medicine Work Phone: Comment on above: Has pt arrived? YHas pt arrived? YTest performed at:[facility] [address] [place] [address] Prothrombin time (PT) Coag time (PPP) 12.7 s Normal 11.7-14.9 [facility] Internal Medicine Work Phone: Comment on above: Has pt arrived? YHas pt arrived? YTest performed at:[facility] [address] [place] [address] Liver ProfileOrdered By: Sadiq tem Spray Cementer on 04-28-2014 Albumin mass conc 3.7 g/dL Normal 3.4-5.0 Compreh ensive Internal Medicine Work Phone: Comment on above: Test performed at:[facility] [address] [place] [address] ALT enzyme act/vol 81 U/L Abnormal 12-78 Compre [facility] Internal Medicine Work Phone: Comment on above: Test performed at:[facility] [address] [place] [address] AST enzyme act/vol 48 U/L Abnormal 15-37 Compre [facility] Internal Medicine Work Phone: Comment on above: Test performed at:[facility] [address] [place] [address] Bilirubin mass conc 0.40 mg/dL Normal 0.00-4.00 Compr ensive Internal Medicine Work Phone: Comment on above: Test performed at:[facility] [address] [place] [address] Bilirubin.direct mass conc 0.14 mg/dL Normal 0.00-0.30 [facility] Work Phone: Comment on above: Test performed at:[facility] [address] [place] [address] Globulin mass conc (S) 4.3 g/dL Abnormal 2.7-4.2 [facility] Work Phone: Comment on above: Test performed at:[facility] [address] [place] [address] Protein mass conc 8.0 g/dL Normal 6.4-8.2 Compreh ensive Internal Medicine Work Phone: Comment on above: Test performed at:[facility] [address] [place] [address] Liver Profile 286 U/L Abnormal 50-136 Comprehensi ve Internal Medicine Work Phone: Comment on above: Test performed at:[facility] [address] [place] [address] Protein Electroph, SOrdered By: Calcine Furnace Tender on 04-28-2014 Albumin mass conc 3.8 g/dL Normal 3.2-5.6 Compreh ensive Internal Medicine Work Phone: Comment on above: Test performed at:[facility] [address] [place] [address] Albumin/Globulin mass ratio 1.2 {ratio} Normal 0.7-2.0 [facility] Work Phone: Comment on above: Test performed at:[facility] [address] [place] [address] Globulin mass conc (S) 3.3 g/dL Normal 2.0-4.5 Co mprehensive Internal Medicine Work Phone: Comment on above: Test performed at:[facility] [address] [place] [address] Protein mass conc 7.1 g/dL Normal 6.0-8.5 Compreh ensive Internal Medicine Work Phone: Comment on above: Test performed at:[facility] [address] [place] [address] Protein Electroph, S 1.0 g/dL Normal 0.6-1.3 Comp rehensive Internal Medicine Work Phone: Comment on above: Test performed at:[facility] [address] [place] [address] Protein Electroph, S 0.7 g/dL Normal 0.4-1.2 Comp rehensive Internal Medicine Work Phone: Comment on above: Test performed at:[facility] [address] [place] [address] Protein Electroph, S 0 g/dL Normal Comp rehensive Internal Medicine Work Phone: Comment on above: Test performed at:[facility] [address] [place] [address] Protein Electroph, S 0.3 g/dL Normal 0.1-0.4 Comp rehensive Internal Medicine Work Phone: Comment on above: Test performed at:[facility] [address] [place] [address] Protein Electroph, S Comment Normal Comp rehensive Internal Medicine Work Phone: Comment on above: The SPE pattern appe ars essentially unremarkable. Evidenceof monoclonal protein is not apparent.Performed at: [facility] [id number] Director: Eddie Mclaughlin PhD, Phone: [phone] Test performed at:[facility] [address] [place] [address] Protein electrophore sis scan will follow via computer,mail, or geospatial program management officer delivery. Protein Electroph, S 1.4 g/dL Normal 0.5-1.6 Comp rehensive Internal Medicine Work Phone: Comment on above: Test performed at:[facility] [address] [place] [address] Vitamin D,25 HydroxyOrdered By: Calcine Furnace Tender on 04-28-2014 Vitamin D,25 Hydroxy 17.2 ng/mL Normal [facility] rehensive Internal Medicine Work Phone: Comment on above: Vitamin D 25(OH) Sta tus Range Deficiency <20 ng/mL (50nmol/L) Insuffciency 20 - 30 ng/mL (50 - 75 nmol/L) Sufficiency 30 - 100 ng/mL (75 - 250 nmol/L) Toxicity >100 ng/mL (>250 nmol/L) Test performed at:[facility] [address] [place] [address] Basic Metabolic Profile (BMP )Ordered By: Calcine Furnace Tender on 04-13-2014 Calcium mass conc 8.8 mg/dL Normal 8.5-10.1 [facility] Internal Medicine Work Phone: Comment on above: Test performed at:[facility] [address] [place] [address] Chloride molar conc 103 mmol/L Normal 98-107 Compr ehensive Internal Medicine Work Phone: Comment on above: Test performed at:[facility] [address] [place] [address] CO2 molar conc 30.0 mmol/L Normal 21.0-32.0 Comprehen sive Internal Medicine Work Phone: Comment on above: Test performed at:[facility] [address] [place] [address] Creatinine mass conc 0.8 mg/dL Normal 0.6-1.0 Comp rehensive Internal Medicine Work Phone: Comment on above: Test performed at:[facility] [address] [place] [address] GFR/1.73 sq M predicted among non-blacks MDRD vol rate/area (S/P/Bld) 79 mL/min/{1.73_m2} Normal Comp rehensive Internal Medicine Work Phone: Comment on above: Test performed at:[facility] [address] [place] [address] Glucose mass conc 97 mg/dL Normal 70-110 Compreh ensive Internal Medicine Work Phone: Comment on above: Test performed at:[facility] [address] [place] [address] Potassium molar conc 3.9 mmol/L Normal 3.5-5.1 Comp rehensive Internal Medicine Work Phone: Comment on above: Test performed at:[facility] [address] [place] [address] Sodium molar conc 135 mmol/L Abnormal 136-145 Compreh ensive Internal Medicine Work Phone: Comment on above: Test performed at:[facility] [address] [place], [place] [address] Urea nitrogen mass conc 12 mg/dL Normal 7-18 C omprehensive Internal Medicine Work Phone: Comment on above: Test performed at:[facility] [address] [place] [address] Basic Metabolic Profile (BMP) 2 1 Abnormal 5-15 [facility] Internal Medicine Work Phone: Comment on above: Test performed at:[facility] [address] [place] [address] Basic Metabolic Profile (BMP) 15.0 {RATIO} Normal 10-20 [facility] Internal Medicine Work Phone: Comment on above: Test performed at:[facility] [address] [place] [address] Basic Metabolic Profile (BMP) 96 mL/min Normal [facility] Internal Medicine Work Phone: Comment on above: Test performed at:[facility] [address] [place] [address] CBC-Complete Blood Cnt No Di ffOrdered By: Calcine Furnace Tender on 04-13-2014 Erythrocyte distribution width Ratio (RBC) 12.5 % Normal 11.6-14.6 [facility] Medicine Work Phone: Comment on above: Test performed at:[facility] [address] [place] [address] Hematocrit Volume Fraction (Bld) 39.3 % Normal 37-47 [facility] Internal Medicine Work Phone: Comment on above: Test performed at:[facility] [address] [place] [address] Hemoglobin mass conc (Bld) 12.8 g/dL Normal 12.0-15.0 [facility] Internal Medicine Work Phone: Comment on above: Test performed at:[facility] [address] [place] [address] MCH Entitic mass (RBC) 29.2 pg Normal 27.0-32.0 Co mprehensive Internal Medicine Work Phone: Comment on above: Test performed at:[facility] [address] [place] [address] MCHC mass conc (RBC) 32.6 {g/gl} Normal 32-36 Com prehensive Internal Medicine Work Phone: Comment on above: Test performed at:[facility] [address] [place] [address] MCV Entitic volume (RBC) 89.7 fL Normal 81-99 [facility] Internal Medicine Work Phone: Comment on above: Test performed at:[facility] [address] [place] [address] Platelet mean volume Entitic volume (Bld) 11.2 fL Normal 6.2-12.0 Comprehensi ve Internal Medicine Work Phone: Comment on above: Test performed at:[facility] [address] [place] [address] Platelets #/vol (Bld) 284 10*3/uL Normal 150-450 [facility] Work Phone: Comment on above: Test performed at:[facility] [address] [place] [address] RBC #/vol (Bld) 4.38 {M/mm3} Normal 4.2-5.4 Compreh ensive Internal Medicine Work Phone: Comment on above: Test performed at:[facility] [address] [place] [address] WBC #/vol (Bld) 8.2 10*3/uL Normal 4.4-11.0 Comprehe nsive Internal Medicine Work Phone: Comment on above: Test performed at:[facility] [address] [place] [address] CBC-Complete Blood Cnt No Diff 40.1 fL Normal 35.1-43.9 [facility] Medicine Work Phone: Comment on above: Test performed at:[facility] [address] [place], [place] [address] Hemoglobin Glyclated (HGB A1 C) (88790)Ordered By: Calcine Furnace Tender on 03-19-2014 Hemoglobin A1c/Hemoglobin.total mass fraction (Bld) 5.9 % Abnormal 4.8-5.6 Comprehensiv e Internal Medicine Work Phone: Comment on above: . Increased risk for diabetes: 5.7 - 6.4 Diabetes: >6.4 Glycemic control for adults with diabetes: <7.0 PATIENT NOT FASTINGP ERFORMED BY: LabCoKessler Institute for RehabilitationAevsos1766 [facility] [id number] Information: [id number] MIACREOrdered By: System Man ager on 03-10-2014 Creatinine mass conc 5.8 {mg/g_CRE} Normal [facility] Work Phone: MIACRE 8.2 mg/L Normal [facility] Internal Medicine Work Phone: MIACRE 140.5 mg/dL Normal [facility] Internal Medicine Work Phone: UAOrdered By: Calcine Furnace Tender on 03-10-2014 UA Negative Normal [facility] Internal [...] 90-96% ofpatients with primary biliary cirrhosis.Performed at: [facility] [address] [id number] Director: Eddie Mclaughlin PhD, Phone: [phone] Has pt arrived? Y AMYOrdered By: System [employer] r on 03-03-2014 ROD 58 U/L Normal [...] of patients with primary biliary cirrhosis.Performed at: [facility] [address] [id number] Director: Eddie Mclaughlin PhD, Phone: [phone] Has pt arrived? Y CMPOrdered By: [employer] r on 03-03-2014 Albumin mass conc 3.5 g/dL Normal 3.4-5.0 Compreh ensive Internal Medicine Work Phone: Albumin/Globulin mass ratio 0.8 {RATIO} Abnormal 0.9-2.4 [facility] Internal Medicine Work Phone: ALP enzyme act/vol 247 U/L Abnormal 50-136 Compre hensive Internal Medicine Work Phone: ALT enzyme act/vol 51 U/L Normal 12-78 Compre [facility] Internal Medicine Work Phone: AST enzyme act/vol 32 U/L Normal 15-37 Compre [facility] Work Phone: Bilirubin mass conc 0.40 mg/dL Normal 0.00-4.00 Compr ehensive Internal Medicine Work Phone: Calcium mass conc 9.4 mg/dL Normal 8.5-10.1 Compreh ensive Internal Medicine Work Phone: Chloride molar conc 104 mmol/L Normal 98-107 Compr ensive Internal Medicine Work Phone: CO2 molar conc 24.0 mmol/L Normal 21.0-32.0 Comprehen [facility] Internal Medicine Work Phone: Creatinine mass conc 0.8 mg/dL Normal 0.6-1.0 Comp [facility] Internal [facility] Work Phone: GFR/1.73 sq M [...] mass conc 17 mg/dL Normal 7-18 C [facility]outh[facility] centerens[facility] Internal Medicine Work Phone: Urea nitrogen/Creatinine mass [...] YHas pt arrived? Y Thin prep Pap ([id number])Ordered By: Calcine Furnace Tender on 11-30-2013 Microscopic observation Other stain Nom (Unsp spec) . Normal [facility] Internal Medicine Work Phone: Comment on above: Source.............C ervical;EndocervicalNo. of containers..01 CYTYC Thin Prep VialPATIENT NOT FASTINGPERFORMED BY: [employer] plcProgress [facility] [address] [id number] Information: [id number] Pathology report final diagnosis Narrative SPRCS Normal Comprehensiv e Internal Medicine Work Phone: Comment on above: NEGATIVE FOR INTRAEP ITHELIAL LESION AND MALIGNANCY.Satisfactory for evaluation. Endocervical and/or squamous metaplasticcells (endocervical component) are present.V72.31 ; Routine gynecological examinationRachel Paddy Hvac Engineering Technician (ASCP) Source.............C ervical;EndocervicalNo. of containers..01 CYTYC Thin Prep VialPATIENT NOT FASTINGPERFORMED BY: [employer] [address] [id number] Information: [id number] Thin prep Pap (22755) PAPSMR Normal [facility] prehensive Internal Medicine Work Phone: Comment [...] CYTYC Thin Prep VialPATIENT NOT FASTINGPERFORMED BY: [employer] plc[facility] [address] [id number] Information: [id number] (821 05)Ordered By: Calcine Furnace Tender on 11-18-2013 AFP.tumor marker mass conc 3.6 ng/mL Normal 0.0-8.3 [facility] Internal Medicine Work Phone: Comment on above: Jesse ECLIA methodol ogy PATIENT NOT FASTINGP ERFORMED BY: LUIS F LabProgress [facility] Bymdco4942 [facility] [id number] HEPATIC FUNCTION PANEL (8007 6)Ordered By: Calcine Furnace Tender on 11-18-2013 Bilirubin.direct mass conc 0.11 mg/dL Normal 0.00-0.40 [facility] Internal Medicine Work Phone: Comment on above: PATIENT NOT FASTINGP ERFORMED BY: LabCoKessler Institute for RehabilitationSzmtij9904 [facility] [id number] Metabolic Panel, Comprehensi ve (75613)Ordered By: Calcine Furnace Tender on 11-18-2013 Albumin mass conc 3.9 g/dL Normal 3.5-5.5 Compreh [facility] Internal Medicine Work Phone: Comment on above: PATIENT NOT FASTINGP ERFORMED BY: LabAscension [facility] Hospital6370 [facility] [id number] Information: [id number] Albumin/Globulin mass ratio 1.3 {ratio} Normal 1.1-2.5 [facility] Internal Medicine Work Phone: Comment on above: PATIENT NOT FASTINGP ERFORMED BY: LUIS F [facility] Khwksy3059 [facility] [id number] Information: [id number] ALP enzyme act/vol 174 [iU]/L Abnormal 39-117 [facility] Internal Medicine Work Phone: Comment on above: PATIENT NOT FASTINGP ERFORMED BY: LabProgress [facility] Faxhsn5872 [facility] [id number] Information: [id number] ALT enzyme act/vol 29 [iU]/L Normal 0-32 [facility] Internal Medicine Work Phone: Comment on above: PATIENT NOT FASTINGP ERFORMED BY: [facility] Akzhpi0752 [facility] [id number] Information: [id number] AST enzyme act/vol 32 [iU]/L Normal 0-40 [facility] Internal Medicine Work Phone: Comment on above: PATIENT NOT FASTINGP ERFORMED BY: LUIS F [facility] [address]ln[address] [place] [id number] Information: [id number] Bilirubin mass conc 0.3 mg/dL Normal 0.0-1.2 Compr ehensive Internal Medicine Work Phone: Comment on above: PATIENT NOT FASTINGP ERFORMED BY: LUIS F [facility] Wjgina[address] [facility]in [place] [id number] Information: [id number] Calcium mass conc 9.2 mg/dL Normal 8.7-10.2 Compreh ensive Internal Medicine Work Phone: Comment on above: PATIENT NOT FASTINGP ERFORMED BY: LUIS F LabCobushra ByrdUpvbdy[address] [facility]in [place] [id number] Information: [id number] Chloride molar conc 102 mmol/L Normal 97-108 Compr ensive Internal Medicine Work Phone: Comment on above: PATIENT NOT FASTINGP ERFORMED BY: LUIS F [facility] Wcavss[address] [facility] Hospitalin [place] [id number] Information: [id number] CO2 molar conc 24 mmol/L Normal 18-29 Comprehens [facility]a Internal Medicine Work Phone: Comment on above: PATIENT NOT FASTINGP ERFORMED BY: [facility] Trsbrt9229 [facility] [id number] Information: [id number] Creatinine mass conc 0.75 mg/dL Normal 0.57-1.00 Comp [facility] centerensive Internal Medicine Work Phone: Comment on above: PATIENT NOT FASTINGP ERFORMED BY: [facility] Ryfluy[address] [facility]in [place] [id number] Information: [id number] GFR/1.73 sq M predicted among blacks CKD-EPI vol rate/area (S/P/Bld) 105 mL/min/1.73 Normal Comprehe nsive Internal Medicine Work Phone: Comment on above: PATIENT NOT FASTINGP ERFORMED BY: CB [facility] Miglaq3079 [facility] [id number] Information: [id number] GFR/1.73 sq M predicted among non-blacks CKD-EPI vol rate/area (S/P/Bld) 91 mL/min/1.73 Normal [facility] Internal Medicine Work Phone: Comment on above: PATIENT NOT FASTINGP ERFORMED BY: LUIS F Cohen Linhby1300 [facility] [id number] Information: [id number] Globulin mass conc (S) 3.1 g/dL Normal 1.5-4.5 Co mprehensive Internal Medicine Work Phone: Comment on above: PATIENT NOT FASTINGP ERFORMED BY: LUIS F Cohen Rbikfl6289 [facility] [id number] Information: [id number] Glucose mass conc 84 mg/dL Normal 65-99 Compreh ensive Internal Medicine Work Phone: Comment on above: PATIENT NOT FASTINGP ERFORMED BY: LUIS F Cohen Xemtgl5368 [facility] [id number] Information: [id number] Potassium molar conc 4.0 mmol/L Normal 3.5-5.2 Comp rehensive Internal Medicine Work Phone: Comment on above: PATIENT NOT FASTINGP ERFORMED BY: LUIS F MichaelAscension Providence Hospital6370 [facility] [id number] Information: [id number] Protein mass conc 7.0 g/dL Normal 6.0-8.5 Compreh ensive Internal Medicine Work Phone: Comment on above: PATIENT NOT FASTINGP ERFORMED BY: LUIS F [facility] Wqyind5925 [facility] [id number] Information: [id number] Sodium molar conc 137 mmol/L Normal 134-144 Compreh ensive Internal Medicine Work Phone: Comment on above: PATIENT NOT FASTINGP ERFORMED BY: LabChristina Ville 0684570 [facility] [id number] Information: [id number] Urea nitrogen mass conc 18 mg/dL Normal 6-24 C ompsouthview medical centerensive Internal Medicine Work Phone: Comment on above: PATIENT NOT FASTINGP ERFORMED BY: [facility]6370 [facility] [id number] Information: [id number] Urea nitrogen/Creatinine mass ratio 24 mg/mg Abnormal 9- [facility] Internal Medicine Work Phone: Comment on above: PATIENT NOT FASTINGP ERFORMED BY: [address] [id number] Information: [id number] AMYLASE (38974)Ordered By: S ystem Spray Cementer on 11-02-2013 Amylase enzyme act/vol 61 U/L Normal 31-124 Co mprensive Internal Medicine Work Phone: Comment on above: PATIENT NOT FASTINGP ERFORMED BY: [facility]6370 [facility] [id number] ANTI-NONA-1 [id number] (21566)Orde red By: Calcine Furnace Tender on 11-02-2013 Nona-1 extractable nuclear Ab Qn (S) <0.2 Normal 0.0-0.9 [facility] Work Phone: Comment on above: PATIENT NOT FASTINGP ERFORMED BY: [facility]6370 [facility] [id number] ANTI-Sm (ANTI REED ANTIBODY ) ([id number])Ordered By: Calcine Furnace Tender on 11-02-2013 Ribonucleoprotein extractable nuclear Ab Qn (S) 0.5 {AI} Normal 0.0-0.9 [facility] Work Phone: Comment on above: PATIENT NOT FASTINGP ERFORMED BY: [facility]6370 [facility] [id number] Reed extractable nuclear Ab Qn (S) <0.2 Normal 0.0-0.9 [facility] Medicine Work Phone: Comment on above: PATIENT NOT FASTINGP ERFORMED BY: [employer] Yqhpnb[address] [id number] ASM (ANTI SMOOTH MUSCLE ANTI BODY) (11733)Ordered By: Calcine Furnace Tender on 11-02-2013 Actin IgG Qn 13 {Units} Normal 0-19 Comprehensiv e Internal Medicine Work Phone: Comment on above: Negative 0 - 19 Weak positive 20 - 30 Moderate to strong positive >30 . Actin Antibodies are found in 52-85% of patients with autoimmune hepatitis or chronic active hepatitis and in 22% of patients with primary biliary cirrhosis. PATIENT NOT FASTINGP ERFORMED BY: [employer] [facility] Rpbcad[address] [place] [employer] Information ServicesScionhealthin [place] [id number] LIPASE (71790)Ordered By: Notifo stem Spray Cementer on 11-02-2013 Lipase enzyme act/vol 45 U/L Normal 0-59 [facility] prehensive Internal Medicine Work Phone: Comment on above: PATIENT NOT FASTINGP ERFORMED BY: [facility] Vtuiel[address] [facility] [place] [id number] TSH (THYROID STIMULATING HOR TIM) ([id number])Ordered By: Calcine Furnace Tender on 11-02-2013 Thyrotropin Qn 1.260 {uIU/mL} Normal 0.450-4.50 0 [facility] Medicine Work Phone: Comment on above: PATIENT NOT FASTINGP ERFORMED BY: [employer] Mttmpm[address]017 [address] [place] [employer] ServicesFormerly [facility] [id number] Information: [id number] GGTOrdered By: System Manage r on 10-15-2013 Gamma glutamyl transferase enzyme act/vol 257 [iU]/L Abnormal 0-60 [facility] Work Phone: Comment on above: PATIENT WAS FASTINGP ERFORMED BY: [facility] Xqwcgy[address]18 [address] [facility]in [place] [id number] Information: [id number] Written AuthorizationOrdered By: Calcine Furnace Tender on 10-15-2013 Written Authorization WAR Normal Com prehensive Internal Medicine Work Phone: Comment on above: Written Authorizatio n Received.Authorization received from [facility] AYALA [id number] by Micki Reynolds PATIENT WAS FASTINGP ERFORMED BY: LabCoKessler Institute for RehabilitationReezem4041 [facility] [id number] CBC WITH MANUAL DIFF (22329) Ordered By: Calcine Furnace Tender on 10-14-2013 Basophils #/vol (Bld) 0.1 {x10E3/uL} Normal 0.0-0.2 [facility] Work Phone: Comment on above: PATIENT WAS FASTINGP ERFORMED BY: [facility]CoKessler Institute for RehabilitationNncyyx4600 [facility] [id number] Information: [id number] Basophils/100 WBC (Bld) 1 % Normal 0-3 C omprehensive Internal Medicine Work Phone: Comment on above: PATIENT WAS FASTINGP ERFORMED BY: [facility]CoKessler Institute for RehabilitationFtzqju9862 [facility] [id number] Information: [id number],[id number] Eosinophils #/vol (Bld) 0.2 {x10E3/uL} Normal 0.0-0.4 [facility] Work Phone: Comment on above: PATIENT WAS FASTINGP ERFORMED BY: [facility]CoKessler Institute for RehabilitationIzluas5431 [facility] [id number] Information: [id number] Eosinophils/100 WBC (Bld) 3 % Normal 0-5 [facility] Work Phone: Comment on above: PATIENT WAS FASTINGP ERFORMED BY: LabCo Bjeuan3055 [facility] [id number] Information: [id number] Erythrocyte distribution width Ratio (RBC) 13.1 % Normal 12.3-15.4 [facility] Work Phone: Comment on above: PATIENT WAS FASTINGP ERFORMED BY: LabCo Soezul3570 [facility] [id number] Information: [id number] Hematocrit Volume Fraction (Bld) 38.2 % Normal 34.0-46.6 [facility] Work Phone: Comment on above: PATIENT WAS FASTINGP ERFORMED BY: [place] 2204170 [facility] [id number] Information: 110313,[id number] Hemoglobin mass conc (Bld) 12.8 g/dL Normal 11.1-15.9 [facility] Work Phone: Comment on above: PATIENT WAS FASTINGP ERFORMED BY: [address] [id number] Information: [id number] Immature granulocytes #/vol (Bld) 0.0 {x10E3/uL} Normal 0.0-0.1 [facility] Work Phone: Comment on above: PATIENT WAS FASTINGP ERFORMED BY: [address] [id number] Information: [id number] Immature granulocytes/100 WBC (Bld) 0 % Normal 0-2 [facility] Work Phone: Comment on above: PATIENT WAS FASTINGP ERFORMED BY: [address] [id number] Information: [id number],[id number] Lymphocytes #/vol (Bld) 1.8 {x10E3/uL} Normal 0.7-3.1 [facility] Work Phone: Comment on above: PATIENT WAS FASTINGP ERFORMED BY: [address] [id number] Information: [id number],[id number] Lymphocytes/100 WBC (Bld) 22 % Normal 14-46 [facility] Work Phone: Comment on above: PATIENT WAS FASTINGP ERFORMED BY: [address] [id number] Information: 601449,[id number] MCH Entitic mass (RBC) 29.9 pg Normal 26.6-33.0 Co [facility] Internal Medicine Work Phone: Comment on above: PATIENT WAS FASTINGP ERFORMED BY: [facility]6370 [facility] [id number] Information: [id number] MCHC mass conc (RBC) 33.5 g/dL Normal 31.5-35.7 [facility] Internal Medicine Work Phone: Comment on above: PATIENT WAS FASTINGP ERFORMED BY: [place] 2204170 [facility] [id number] Information: [id number],[id number] MCV Entitic volume (RBC) 89 fL Normal 79-97 [facility] Work Phone: Comment on above: PATIENT WAS FASTINGP ERFORMED BY: [address] [id number] Information: [id number],[id number] Monocytes #/vol (Bld) 0.5 {x10E3/uL} Normal 0.1-0.9 [facility] Work Phone: Comment on above: PATIENT WAS FASTINGP ERFORMED BY: [place] 2204170 [facility] [id number] Information: [id number],[id number] Monocytes/100 WBC (Bld) 6 % Normal 4-12 C [facility] Internal Medicine Work Phone: Comment on above: PATIENT WAS FASTINGP ERFORMED BY: [place] 2204170 [facility] [id number] Information: [id number] Neutrophils #/vol (Bld) 5.9 {x10E3/uL} Normal 1.4-7.0 [facility] Work Phone: Comment on above: PATIENT WAS FASTINGP ERFORMED BY: [place] 2204170 [facility] [id number] Information: 180452,[id number] Neutrophils/100 WBC (Bld) 68 % Normal 40-74 [facility] Work Phone: Comment on above: PATIENT WAS FASTINGP ERFORMED BY: [address] [id number] Information: [id number] Platelets #/vol (Bld) 283 {x10E3/uL} Normal 150-379 [facility] Work Phone: Comment on above: PATIENT WAS FASTINGP ERFORMED BY: LUIS F FernandaProgress [facility] Hospital Wxkfuj1774 [facility] [id number] Information: [id number] RBC #/vol (Bld) 4.28 {x10E6/uL} Normal 3.77-5.28 [facility] Internal Medicine Work Phone: Comment on above: PATIENT WAS FASTINGP ERFORMED BY: LUIS F FernandaProgress [facility] Hospital Tgitzc8249 [facility] [id number] Information: [id number],[id number] WBC #/vol (Bld) 8.5 {x10E3/uL} Normal 3.4-10.8 [facility] Internal Medicine Work Phone: Comment on above: PATIENT WAS FASTINGP ERFORMED BY: LUIS F [facility]andaProgress [facility] Hospital Gvltdp8034 [facility] [id number] Information: [id number] LIPID PANEL (98153)Ordered B y: Calcine Furnace Tender on 10-14-2013 Cholesterol in HDL mass conc 46 mg/dL Normal [facility] Work Phone: Comment on above: According to ATP-III Guidelines, HDL-C >59 mg/dL is considered anegative risk factor for CHD. PATIENT WAS FASTINGP ERFORMED BY: LUIS F FernandaAscension Providence Hospital6370 [facility] [id number] Cholesterol in LDL mass conc 110 mg/dL Abnormal 0-99 [facility] Work Phone: Comment on above: PATIENT WAS FASTINGP ERFORMED BY: [facility]6370 [facility] [id number] Cholesterol in LDL/Cholesterol in HDL mass ratio 2.4 {ratio_units} Normal 0.0-3.2 [facility] Work Phone: Comment on above: PATIENT WAS FASTINGP ERFORMED BY: LUIS F [facility]irmarylin6370 [address] RoadDublin [place] [id number] Cholesterol in VLDL mass conc 31 mg/dL Normal 5-40 [facility] Work Phone: Comment on above: PATIENT WAS FASTINGP ERFORMED BY: LUIS F [facility] Jtwjet4047 [address] RoadDublin [place] [id number] Cholesterol mass conc 187 mg/dL Normal 100-199 Com prehensive Internal Medicine Work Phone: Comment on above: PATIENT WAS FASTINGP ERFORMED BY: LUIS F [facility] Fjkghz7224 Uriarte Roadblin [place] [id number] Triglyceride mass conc 156 mg/dL Abnormal 0-149 Co mprehensive [facility] Work Phone: Comment on above: PATIENT WAS FASTINGP ERFORMED BY: LUIS F [facility] Klcabs[address] [facility]in [place] [id number] METABOLIC PANEL, COMPREHENSI VE (21664)Ordered By: Calcine Furnace Tender on 10-14-2013 Albumin mass conc 4.0 g/dL Normal 3.5-5.5 Compreh [facility] centerive Internal Medicine Work Phone: Comment on above: PATIENT WAS FASTINGP ERFORMED BY: LUIS F [facility] Zkdmoo[address] [facility] Hospitalblin [place] [id number] Albumin/Globulin mass ratio 1.4 {ratio} Normal 1.1-2.5 [facility] Work Phone: Comment on above: PATIENT WAS FASTINGP ERFORMED BY: [facility] Ciiqpw0946 [address] [facility]in [place] [id number] ALP enzyme act/vol 232 [iU]/L Abnormal 39-117 Compre [facility] Internal Medicine Work Phone: Comment on above: PATIENT WAS FASTINGP ERFORMED BY: LUIS F [facility] Msniwt8[address] [facility] Hospitalblin [place] [id number] ALT enzyme act/vol 31 [iU]/L Normal 0-32 Compre [facility] Internal Medicine Work Phone: Comment on above: PATIENT WAS FASTINGP ERFORMED BY: LUIS F [facility] Crilvi2216 [address] [facility] Hospitalblin [place] [id number] AST enzyme act/vol 31 [iU]/L Normal 0-40 Compre [facility] Internal Medicine Work Phone: Comment on above: PATIENT WAS FASTINGP ERFORMED BY: LUIS F LabCobushra Aogrgr7617 [address] [facility]in [place] [id number] Bilirubin mass conc 0.5 mg/dL Normal 0.0-1.2 Compr ensive Internal Medicine Work Phone: Comment on above: PATIENT WAS FASTINGP ERFORMED BY: CB [facility] Whvoig7[address] [facility] [id number] Calcium mass conc 9.8 mg/dL Normal 8.7-10.2 Compreh [facility] centerive Internal Medicine Work Phone: Comment on above: PATIENT WAS FASTINGP ERFORMED BY: [facility] Qlbxmz8482 [facility] [id number] Chloride molar conc 99 mmol/L Normal 97-108 Compr [facility] Internal Medicine Work Phone: Comment on above: PATIENT WAS FASTINGP ERFORMED BY: [facility] Mjpbsj2226 [facility] [id number] CO2 molar conc 24 mmol/L Normal 18-29 Comprehens [facility] Internal Medicine Work Phone: Comment on above: PATIENT WAS FASTINGP ERFORMED BY: [facility] Prahes9820 [facility] [id number] Creatinine mass conc 0.67 mg/dL Normal 0.57-1.00 Comp [facility] Internal Medicine Work Phone: Comment on above: PATIENT WAS FASTINGP ERFORMED BY: [facility] Qajzhn5048 [address] [facility] [id number] GFR/1.73 sq M predicted among blacks CKD-EPI vol rate/area (S/P/Bld) 115 mL/min/1.73 Normal Comprehe [facility] Internal Medicine Work Phone: Comment on above: PATIENT WAS FASTINGP ERFORMED BY: [facility] Bjgrzm6453 [address] [facility] [id number] GFR/1.73 sq M predicted among non-blacks CKD-EPI vol rate/area (S/P/Bld) 100 mL/min/1.73 Normal [facility] Work Phone: Comment on above: PATIENT WAS FASTINGP ERFORMED BY: LUIS F [facility] Sqdpdj8340 [address] RoadDublin [place] [id number] Globulin mass conc (S) 2.9 g/dL Normal 1.5-4.5 Co mprehensive Internal Medicine Work Phone: Comment on above: PATIENT WAS FASTINGP ERFORMED BY: [facility] Qbzddz5571 [address] RoadScionhealthin [place] [id number] Glucose mass conc 99 mg/dL Normal 65-99 Compreh ensive Internal Medicine Work Phone: Comment on above: PATIENT WAS FASTINGP ERFORMED BY: LUIS F [facility] Ahwelg5331 Uriarte RoadScionhealthin [place] [id number] Potassium molar conc 4.6 mmol/L Normal 3.5-5.2 Comp rehensive Internal Medicine Work Phone: Comment on above: PATIENT WAS FASTINGP ERFORMED BY: [facility] Szxslp6036 [address] [facility]in [place] [id number] Protein mass conc 6.9 g/dL Normal 6.0-8.5 Compreh ensive Internal Medicine Work Phone: Comment on above: PATIENT WAS FASTINGP ERFORMED BY: LUIS F [facility] Ztwlem6996 [address] [facility]in [place] [id number] Sodium molar conc 138 mmol/L Normal 134-144 Compreh ensive Internal Medicine Work Phone: Comment on above: PATIENT WAS FASTINGP ERFORMED BY: [facility] Odwemn6097 [address] [facility] Hospitalblin [place] [id number] Urea nitrogen mass conc 12 mg/dL Normal 6-24 C omprehensive Internal Medicine Work Phone: Comment on above: PATIENT WAS FASTINGP ERFORMED BY: [facility] Likrqp8472 [address] [facility] Hospitalblin [place] [id number] Urea nitrogen/Creatinine mass ratio 18 mg/mg Normal 9-23 [facility] Work Phone: Comment on above: PATIENT WAS FASTINGP ERFORMED BY: [employer] Naezde8174 [address] [facility]in [place] [id number] MICROALBUMINOrdered By: Carnet de Mode em Spray Cementer on 10-14-2013 Albumin DL <= 20 mg/L mass conc (U) 11.4 ug/mL Normal 0.0-17.0 [facility] Work Phone: Comment on above: PATIENT WAS FASTINGP ERFORMED BY: [facility] Mmfvrn3559 [address] RoadScionhealthin [place] [id number] Albumin/Creatinine mass ratio (U) 8.5 {mg/g_creat} Normal 0.0-30.0 [facility] Work Phone: Comment on above: PATIENT WAS FASTINGP ERFORMED BY: LabMangia Tbqfrx0435 [address] [facility]in [place] [id number] Creatinine mass conc (U) 133.8 mg/dL Normal 15.0-278.0 [facility] Work Phone: Comment on above: PATIENT WAS FASTINGP ERFORMED BY: LabProgress [facility] Sfkzcx8627 [facility] [id number] TSH ([id number])Ordered By: Carnet de Mode m Spray Cementer on 10-14-2013 Thyrotropin Qn 1.690 {uIU/mL} Normal 0.450-4.50 0 [facility] Work Phone: Comment on above: PATIENT WAS FASTINGP ERFORMED BY: [facility] Muchbl8021 [facility] [id number] SPINE, CERVICAL (ROUTINE)Ord ered By: Calcine Furnace Tender on 10-11-2011 SPINE, CERVICAL (ROUTINE) See Note [...] Chaudhary M.D.October 11, 2011 at 3:21:03 PM [phone] Signed LL/LL If you are the referring physician and would like to consult with theradiologist who provided this interpretation, please contact Lila Zafar M.D. at [phone]. If this radiologist is unavailable, you willbe directed to another radiologist to assist. If you are a patient with a question regarding this report, pleasecontactyour referring physician directly. Professional Interpretation Provided By: [employer], Phone , Dictated on 10/11/11 0923 by FATMATA NARAYAN,ANNAATranscribed on 10/11/112219 by ITS IMPORTSign by LILA CHAUDHARY MD on 10/11/112220 Sign by: LILA CHAUDHARY MD CERV SPINE,MIN 4 VIEWSOrdere d By: Calcine Furnace Tender on 08-29-2011 CERV SPINE,MIN 4 VIEWS See [...] EDTElectronically Signed GP/GP Professional Interpretation Provided By: [facility], , To consult with a radiologist regarding this report, please call our [id number] line @ Dictated on 08/29/11 1649 by Adam NARAYAN,Darienribed on 08/30/11 1249 by ITS IMPORTSign by Wil Arora MD on 08/30/11 1250 Sign by: Wil Arora MD Systemic Lupus Profile (8623 5)Ordered By: Calcine Furnace Tender on 11-10-2010 Chromatin Ab Qn <0.2 Normal 0.0-0.9 Comprehen [facility] Internal Medicine Work Phone: Comment on above: PATIENT NOT FASTINGP ERFORMED BY: LUIS F Byrdlin6370 [facility] [id number] Information: [id number] DNA double strand Ab Qn (S) 17 {IU/mL} Abnormal 0-9 [facility] Work Phone: Comment on above: Negative <5 Equivoca l 5 - 9 Positive >9 PATIENT NOT FASTINGP ERFORMED BY: LUIS F Byrdlin6370 [facility] [id number] Information: 605379,[id number] Rheumatoid factor Qn 7.0 {IU/mL} Normal 0.0-13.9 [facility] Internal Medicine Work Phone: Comment on above: PATIENT NOT FASTINGP ERFORMED BY: LUIS F Byrdlin6370 [facility] [id number] Information: [id number] Ribonucleoprotein extractable nuclear Ab Qn (S) 0.4 {AI} Normal 0.0-0.9 [facility] Work Phone: Comment on above: PATIENT NOT FASTINGP ERFORMED BY: LUIS F Cohen Iidwsw4095 [facility] [id number] Information: 030753,[id number] Sjogrens syndrome-A extractable nuclear Ab Qn (S) <0.2 Normal 0.0-0.9 [facility] Work Phone: Comment on above: PATIENT NOT FASTINGP ERFORMED BY: LUIS F CohenErica V[place] 7278170 [facility] [id number] Information: 128295,[id number] Sjogrens syndrome-B extractable nuclear Ab Qn (S) <0.2 Normal 0.0-0.9 [facility] Work Phone: Comment on above: PATIENT NOT FASTINGP ERFORMED BY: LUIS F Byrdlin6370 [facility] [id number] Information: [id number],[id number] Reed extractable nuclear Ab Qn (S) <0.2 Normal 0.0-0.9 [facility] Work Phone: Comment on above: PATIENT NOT FASTINGP ERFORMED BY: [place] 2204170 [facility] [id number] Information: 528323,[id number] Antinuclear Antibodies Direc tOrdered By: Calcine Furnace Tender on 10-10-2010 Nuclear Ab Ql (S) Positive Abnormal Compreh ensive Internal Medicine Work Phone: Comment on above: PATIENT WAS FASTINGP ERFORMED BY: [place] 2204170 [facility] [id number] BY: [address] [id number] C-Reactive Protein, QuantOrd ered By: Calcine Furnace Tender on 10-10-2010 CRP mass conc 3.8 mg/L Normal 0.0-4.9 Comprehensi ve Internal Medicine Work Phone: Comment on above: PATIENT WAS FASTINGP ERFORMED BY: [place] 2204170 [facility] [id number] BY: [address] [id number] CBC With Differential/Platel etOrdered By: Calcine Furnace Tender on 10-10-2010 Basophils #/vol (Bld) 0.0 {x10E3/uL} Normal 0.0-0.2 [facility] Work Phone: Comment on above: PATIENT WAS FASTINGP ERFORMED BY: LabAsc[facility] Hospital6370 [facility] [id number] BY: [address] [id number] Basophils/100 WBC (Bld) 1 % Normal 0-3 C omprehensive Internal Medicine Work Phone: Comment on above: PATIENT WAS FASTINGP ERFORMED BY: [place] 2204170 [facility] [id number] BY: [address] [id number] Eosinophils #/vol (Bld) 0.2 {x10E3/uL} Normal 0.0-0.4 [facility] Work Phone: Comment on above: PATIENT WAS FASTINGP ERFORMED BY: [facility] Hdphhy8424 [facility] [id number] BY: [address] [id number] Eosinophils/100 WBC (Bld) 3 % Normal 0-7 [facility] Work Phone: Comment on above: PATIENT WAS FASTINGP ERFORMED BY: [facility] Ivtgqb2674 [facility] [id number] BY: [address] [id number] Erythrocyte distribution width Ratio (RBC) 14.7 % Normal 11.7-15.0 [facility] Work Phone: Comment on above: PATIENT WAS FASTINGP ERFORMED BY: [facility] Qhmorl9715 [facility] [id number] BY: Lab[address] [id number] Hematocrit Volume Fraction (Bld) 36.6 % Normal 34.0-44.0 [facility] Work Phone: Comment on above: PATIENT WAS FASTINGP ERFORMED BY: [facility] Vtcqye9809 [facility] [id number] BY: Lab[address] [id number] Hemoglobin mass conc (Bld) 11.9 g/dL Normal 11.5-15.0 [facility] Work Phone: Comment on above: PATIENT WAS FASTINGP ERFORMED BY: [facility] Igndsc7032 [facility] [id number] BY: [address] [id number] Immature granulocytes #/vol (Bld) 0.0 {x10E3/uL} Normal 0.0-0.1 [facility] Work Phone: Comment on above: PATIENT WAS FASTINGP ERFORMED BY: LUIS F [facility] Ceqdbd7796 [facility] [id number] BY: Lab[address] [id number] Immature granulocytes/100 WBC (Bld) 0 % Normal 0-2 [facility] Work Phone: Comment on above: Please note refere nce interval change PATIENT WAS FASTINGP ERFORMED BY: LUIS F [facility] Fsfvii3643 [facility] [id number] BY: LabCo[address] [id number] Lymphocytes #/vol (Bld) 2.2 {x10E3/uL} Normal 0.7-4.5 [facility] Work Phone: Comment on above: PATIENT WAS FASTINGP ERFORMED BY: LUIS F [facility] Vulevi9418 [facility] [id number] BY: Lab[address] [id number] Lymphocytes/100 WBC (Bld) 30 % Normal 14-46 [facility] Work Phone: Comment on above: PATIENT WAS FASTINGP ERFORMED BY: LUIS F [facility] Mdrotv3422 [facility] [id number] BY: [address] [id number] MCH Entitic mass (RBC) 27.4 pg Normal 27.0-34.0 [facility] Internal Medicine Work Phone: Comment on above: PATIENT WAS FASTINGP ERFORMED BY: LUIS F [facility] Gccasl5626 [facility] [id number] BY: [address] [id number] MCHC mass conc (RBC) 32.5 g/dL Normal 32.0-36.0 [facility] Internal Medicine Work Phone: Comment on above: PATIENT WAS FASTINGP ERFORMED BY: LUIS F [facility] Mompjk8260 [facility] [id number] BY: [address] [id number] MCV Entitic volume (RBC) 84 fL Normal 80-98 [facility] Work Phone: Comment on above: PATIENT WAS FASTINGP ERFORMED BY: LUIS F [facility] Oabpzi5[address] [facility] [id number] BY: LabCo[address] [id number] Monocytes #/vol (Bld) 0.6 {x10E3/uL} Normal 0.1-1.0 [facility] Work Phone: Comment on above: PATIENT WAS FASTINGP ERFORMED BY: [facility] Vpvnjg4905 [address] [facility] [id number] BY: [address] [id number] Monocytes/100 WBC (Bld) 8 % Normal 4-13 C omprehensive Internal Medicine Work Phone: Comment on above: PATIENT WAS FASTINGP ERFORMED BY: LUIS F [facility] Vtixch0272 [facility] [id number] BY: [address] [id number] Neutrophils #/vol (Bld) 4.4 {x10E3/uL} Normal 1.8-7.8 [facility] Work Phone: Comment on above: PATIENT WAS FASTINGP ERFORMED BY: [facility] Lavwqh9659 [facility] [id number] BY: Lab[address] [id number] Neutrophils/100 WBC (Bld) 58 % Normal 40-74 [facility] Work Phone: Comment on above: PATIENT WAS FASTINGP ERFORMED BY: [facility] Hxmlep4272 [facility] [id number] BY: [address] [place] [id number] Platelets #/vol (Bld) 286 {x10E3/uL} Normal 140-415 [facility] Work Phone: Comment on above: PATIENT WAS FASTINGP ERFORMED BY: [place] 2204170 [facility] [id number] BY: [address] [id number] RBC #/vol (Bld) 4.34 {x10E6/uL} Normal 3.80-5.10 Comp rehensive Internal Medicine Work Phone: Comment on above: PATIENT WAS FASTINGP ERFORMED BY: [place] 2204170 [facility] [id number] BY: [address] [id number] WBC #/vol (Bld) 7.3 {x10E3/uL} Normal 4.0-10.5 Compr ehensive Internal Medicine Work Phone: Comment on above: PATIENT WAS FASTINGP ERFORMED BY: [place] 2204170 [facility] [id number] BY: [address] [id number] CCP Antibodies IgG/IgAOrdere d By: Calcine Furnace Tender on 10-10-2010 Cyclic citrullinated peptide IgA+IgG IA Qn 3 {units} Normal 0-19 Comprehens [facility] Internal Medicine Work Phone: Comment on above: Negative <20 Weak po sitive 20 - 39 Moderate positive 40 - 59 Strong positive >59 PATIENT WAS FASTINGP ERFORMED BY: [place] 2204170 [facility] [id number] BY: [address] [id number] Comp. Metabolic Panel (14)Or dered By: Calcine Furnace Tender on 10-10-2010 Albumin mass conc 3.9 g/dL Normal 3.5-5.5 Compreh ensive Internal Medicine Work Phone: Comment on above: PATIENT WAS FASTINGP ERFORMED BY: CB [facility] Dswzfa9242 [address] RoadDublin [place] [id number] BY: [address] [id number] Albumin/Globulin mass ratio 1.1 {ratio} Normal 1.1-2.5 [facility] Internal Medicine Work Phone: Comment on above: PATIENT WAS FASTINGP ERFORMED BY: CB [facility] Drbfhy8552 [address] RoadDublin [place] [id number] BY: LabCo[address] [id number] ALP enzyme act/vol 123 [iU]/L Normal 25-150 [facility] Internal Medicine Work Phone: Comment on above: PATIENT WAS FASTINGP ERFORMED BY: CB [facility] Naqjqx5933 [address] RoadDublin [place] [id number] BY: Lab[address] [id number] ALT enzyme act/vol 26 [iU]/L Normal 0-40 [facility] Internal Medicine Work Phone: Comment on above: PATIENT WAS FASTINGP ERFORMED BY: LUIS F [facility] Aagkiw9558 [address] RoadDublin [place] [id number] BY: [address] [id number] AST enzyme act/vol 27 [iU]/L Normal 0-40 [facility] Internal Medicine Work Phone: Comment on above: PATIENT WAS FASTINGP ERFORMED BY: CB [facility] Oskavm3358 [address] RoadDublin [place] [id number] BY: Lab[address] [id number] Bilirubin mass conc 0.3 mg/dL Normal 0.0-1.2 [facility] Internal Medicine Work Phone: Comment on above: PATIENT WAS FASTINGP ERFORMED BY: CB [facility] Avuekz1457 Uriarte RoadDuin [place] [id number] BY: Airphrame[address] [id number] Calcium mass conc 9.0 mg/dL Normal 8.7-10.2 Compreh ensive Internal Medicine Work Phone: Comment on above: PATIENT WAS FASTINGP ERFORMED BY: CB [facility] Qxnank0062 [address] [facility] [id number] BY: [facility] [address] [id number] Chloride molar conc 103 mmol/L Normal 97-108 Compr ehensive Internal Medicine Work Phone: Comment on above: PATIENT WAS FASTINGP ERFORMED BY: CB [facility] Gvrtab2602 [address] [facility] [id number] BY: [facility] [address] [id number] CO2 molar conc 23 mmol/L Normal 20-32 Comprehens leda Internal Medicine Work Phone: Comment on above: PATIENT WAS FASTINGP ERFORMED BY: CB [facility] Ydtmkr8393 [facility] [id number] BY: [facility] [address] [id number] Creatinine mass conc 0.78 mg/dL Normal 0.57-1.00 Comp rehensive Internal Medicine Work Phone: Comment on above: PATIENT WAS FASTINGP ERFORMED BY: CB [facility] Jdbydm1907 [facility] [id number] BY: [facility] [address] [id number] GFR/1.73 sq M predicted among blacks MDRD vol rate/area (S/P/Bld) 102 mL/min/{1.73_m2} Normal Compreh ensive Internal Medicine Work Phone: Comment on above: Note: A persistent e GFR <60 mL/min/1.73 m2 (3 months or more) mayindicate chronic kidney disease. An eGFR >59 mL/min/1.73 m2 with anelevated urine protein also may indicate chronic kidney disease.Calculated using CKD-EPI formula. PATIENT WAS FASTINGP ERFORMED BY: CB [facility] Syrhqg8757 [facility] [id number] BY: [address] [id number] GFR/1.73 sq M predicted among non-blacks CKD-EPI vol rate/area (S/P/Bld) 88 mL/min/1.73 Normal [facility] Work Phone: Comment on above: PATIENT WAS FASTINGP ERFORMED BY: CB [facility] Byxhtr4410 [facility] [id number] BY: [address] [id number] Globulin mass conc (S) 3.6 g/dL Normal 1.5-4.5 [facility] Work Phone: Comment on above: PATIENT WAS FASTINGP ERFORMED BY: CB [facility] Vzdazq7560 [facility] [id number] BY: [address] [id number] Glucose mass conc 102 mg/dL Abnormal 65-99 Compreh ensive Internal Medicine Work Phone: Comment on above: PATIENT WAS FASTINGP ERFORMED BY: CB [facility] Sxforb1109 [facility] [id number] BY: [address] [id number] Potassium molar conc 3.9 mmol/L Normal 3.5-5.2 Comp rehensive Internal Medicine Work Phone: Comment on above: PATIENT WAS FASTINGP ERFORMED BY: CB [facility] Wbcelz0784 [facility] [id number] BY: [address] [id number] Protein mass conc 7.5 g/dL Normal 6.0-8.5 Compreh ensive Internal Medicine Work Phone: Comment on above: PATIENT WAS FASTINGP ERFORMED BY: CB [facility] Snvies5810 [facility] [facility] [id number] BY: [facility]Co[address] [id number] Sodium molar conc 140 mmol/L Normal 135-145 Compreh ensive Internal Medicine Work Phone: Comment on above: PATIENT WAS FASTINGP ERFORMED BY: CB [facility] Psvugy4814 [address] [facility] [id number] BY: [facility] [address] [id number] Urea nitrogen mass conc 19 mg/dL Normal 6-24 C omprehensive Internal Medicine Work Phone: Comment on above: PATIENT WAS FASTINGP ERFORMED BY: CB [facility] Tkluvv5875 [address] [facility] [id number] BY: [facility] [id number] Urea nitrogen/Creatinine mass ratio 24 mg/mg Abnormal 9- [facility] Work Phone: Comment on above: PATIENT WAS FASTINGP ERFORMED BY: CB [facility] Thyhzb6854 [facility] [id number] BY: [address] [id number] HAND,MIN 3 VIEWSOrdered By: Calcine Furnace Tender on 10-10-2010 HAND,MIN 3 VIEWS See Note [...] Wil Arora MD PROCEDURE: [facility]: Female, 50 years [...] Lipid Panel With LDL/HDL Rat ioOrdered By: Calcine Furnace Tender on 10-10-2010 Cholesterol in HDL mass conc 39 mg/dL Abnormal [facility] Work Phone: Comment on above: According to ATP-III Guidelines, HDL-C >59 mg/dL is considered anegative risk factor for CHD. PATIENT WAS FASTINGP ERFORMED BY: CB [facility] Qhwmus4793 [facility] [id number] BY: BN [facility] Gujbdpcjmk4752 [facility] [id number] Cholesterol in LDL mass conc 111 mg/dL Abnormal 0-99 [facility] Work Phone: Comment on above: PATIENT WAS FASTINGP ERFORMED BY: LUIS F [facility] Ewwcmq2497 [address] [facility] [place] [id number] BY: [facility] [address] [id number] Cholesterol in LDL/Cholesterol in HDL mass ratio 2.8 {ratio_units} Normal 0.0-3.2 [facility] Work Phone: Comment on above: PATIENT WAS FASTINGP ERFORMED BY: LUIS F [facility] Jfqsaq0081 [address] [facility] [id number] BY: [facility] [address] [id number] Cholesterol in VLDL mass conc 32 mg/dL Normal 5-40 [facility] Work Phone: Comment on above: PATIENT WAS FASTINGP ERFORMED BY: LUIS F [facility] Jglnqy4913 [address] RoadFormerly [facility] [id number] BY: [facility] [address] [id number] Cholesterol mass conc 182 mg/dL Normal 100-199 [facility] Internal Medicine Work Phone: Comment on above: PATIENT WAS FASTINGP ERFORMED BY: LUIS F [facility] Cradiy5463 [address] [facility] [id number] BY: [facility] [address] [id number] Triglyceride mass conc 159 mg/dL Abnormal 0-149 Co [facility] Internal Medicine Work Phone: Comment on above: PATIENT WAS FASTINGP ERFORMED BY: CB [facility] Aldpro5137 [address] [facility] [place] [id number] BY: [facility] [id number] Microalb/Creat Ratio, Randm UrOrdered By: Calcine Furnace Tender on 10-10-2010 Albumin DL <= 20 mg/L mass conc (U) 24.2 ug/mL Abnormal 0.0-17.0 [facility] Work Phone: Comment on above: PATIENT WAS FASTINGP ERFORMED BY: LUIS F [facility] Enyabv4649 Uriarte RoadDublin [place] [id number] BY: [address] [id number] Albumin/Creatinine mass ratio (U) 9.7 {mg/g_creat} Normal 0.0-30.0 [facility] Work Phone: Comment on above: PATIENT WAS FASTINGP ERFORMED BY: LUIS F [facility] Vzlbis2640 [facility] [id number] BY: [address] [id number] Creatinine mass conc (U) 249.8 mg/dL Normal 15.0-278.0 [facility] Work Phone: Comment on above: PATIENT WAS FASTINGP ERFORMED BY: LUIS F [employer] Vikozm1335 [facility] [id number] BY: [address] [id number] Rheumatoid Arthritis FactorO rdered By: Calcine Furnace Tender on 10-10-2010 Rheumatoid factor Qn 6.5 {IU/mL} Normal 0.0-13.9 [facility] Internal Medicine Work Phone: Comment on above: PATIENT WAS FASTINGP ERFORMED BY: LUIS F [facility]rameKessler Institute for RehabilitationTwzydb8357 [facility] [id number] BY: [address] [id number] Sedimentation Rate-Westergre nOrdered By: Calcine Furnace Tender on 10-10-2010 ESR Velocity (Bld) 23 mm/h Normal 0-56 [facility] Internal Medicine Work Phone: Comment on above: PATIENT WAS FASTINGP ERFORMED BY: LUIS F LabMangiaE[place] 7278170 [facility] [id number] BY: [address] [id number] TSHOrdered By: System Manage r on 10-10-2010 Thyrotropin Qn 1.480 {uIU/mL} Normal 0.450-4.50 0 [facility] Work Phone: Comment on above: PATIENT WAS FASTINGP ERFORMED BY: CB [facility] Djbwww1437 [facility] [id number] BY: BN [facility] Hdnywhlwzo7017 [facility] [id number] CHEST, PA AND LATERALOrdered By: Calcine Furnace Tender on 04-21-2010 CHEST, PA AND LATERAL See [...] 0758 Sign by: NICCI BUTT Rapid Flu (00344 x 2)Ordered By: Evelina Owens on 04-21-2010 FLUAV Ag IA Ql (Throat) Negative Normal C omprehensive Internal Medicine Work Phone: Thin prep Pap (36136)Ordered By: Calcine Furnace Tender on 09-19-2009 Microscopic observation Other stain Nom (Unsp spec) . Normal [facility] Work Phone: Comment on above: LMP / Prev Treat...L VX=[id number]. of containers..01 CYTYC Thin Prep VialPATIENT NOT FASTINGPERFORMED BY: WB [facility] [address] [place] [id number] Information: ADD [id number] Pathology report final diagnosis Narrative SPRCS Normal Comprehensiv e Internal Medicine Work Phone: Comment on above: NEGATIVE FOR INTRAEP ITHELIAL LESION AND MALIGNANCY.Satisfactory for evaluation. Endocervical and/or squamous metaplasticcells (endocervical component) are present.V72.31 ; Routine gynecological examinationGail Casper Hvac Engineering Technician LMP / Prev Treat...L KX=[id number]. of containers..01 CYTYC Thin Prep VialPATIENT NOT FASTINGPERFORMED BY: [address] [id number] Information: ADD [id number] Thin prep Pap (01295) PAPSMR Normal [facility] Internal Medicine [...] testing was performed.. LMP / Prev Treat...L JX=[id number]. of containers..01 CYTYC Thin Prep VialPATIENT NOT FASTINGPERFORMED BY: Airphrame [address]isruyxqo[address] [id number] Information: ADD [id number] CBCD,SMEAR DIFFOrdered By: Maggi ystem Spray Cementer on 09-15-2009 Erythrocyte distribution width Ratio (RBC) 12.6 % Normal 11.6-14.6 [facility] Work Phone: Hematocrit Volume Fraction (Bld) 34.8 % Abnormal 37-47 [facility] Work Phone: Hemoglobin mass conc (Bld) 11.8 g/dL Abnormal 12.0-16.0 [facility] Work Phone: Lymphocytes/100 WBC (Bld) 23 % Normal 19-41 [facility] Work Phone: MCH Entitic mass (RBC) 28.2 pg Normal 27.0-32.0 [facility] Internal Medicine Work Phone: MCHC mass conc [...] Phone: CBCD,SMEAR DIFF 100 1 Normal Comprehen [facility] Internal Medicine Work Phone: CBCD,SMEAR DIFF 69 % Normal 47-70 Comprehen [facility] Internal Medicine Work Phone: COMP METABOLICOrdered By: Sadiq stem Spray Cementer on 09-15-2009 Albumin mass conc 3.4 g/dL Normal 3.4-5.0 Compreh ensive Internal Medicine Work Phone: Albumin/Globulin mass ratio 0.8 {RATIO} Abnormal 0.9-2.4 [facility] Work Phone: ALP enzyme act/vol 123 U/L Normal 50-136 Compre hensive Internal Medicine Work Phone: ALT enzyme act/vol 30 U/L Normal 12-78 [facility]pre [facility] Work Phone: Anion gap molar [...] MDRD vol rate/area 81 mL/min/{1.73_m2} Normal Comprehen [facility] Internal Medicine Work Phone: Globulin mass conc [...] Work Phone: COMPLETE UAOrdered By: Jess guerra Spray Cementer on 09-15-2009 Bacteria LM.HPF #/area (Urine sed) 2+ Normal [facility] Work Phone: Clarity Nom (U) SeeNote Normal Comprehen [facility] Internal Medicine Work Phone: Comment on above: [...] WBC #/vol (Bld) SeeNote Normal 0-5 Comprehen [facility] Internal Medicine Work Phone: Comment on [...] or = 500 mg/dL MICROALBOrdered By: System Ana jimenez on 09-15-2009 Creatinine mass conc 11.3 {mg/g_CRE} Normal [facility] Work Phone: Creatinine mass conc 141.7 mg/dL Normal Com prehensive Internal Medicine Work Phone: MICROALB 16.1 mg/L Normal [facility] Work Phone: TSHOrdered By: System Manage r on 09-15-2009 Thyrotropin Qn 1.69 {uIU/mL} Normal 0.358-3.74 Compreh ensive Internal Medicine Work Phone: CHEST, PA AND LATERAL (MT)Or dered By: Calcine Furnace Tender on 03-29-2009 CHEST, PA AND LATERAL (MT) See Note Normal [facility] Work Phone: Comment on above: Exam Number: [id number] CHEST, PA AND LATERAL PA and [...] CHEST, PA AND LATERAL (MT)Or dered By: Calcine Furnace Tender on 01-28-2009 CHEST, PA AND LATERAL (MT) See Note Normal [facility] Work Phone: Comment on above: Exam Number: [id number] CLINICAL:Fever, cough and shortness of breath [...] HILL M.D. INFLUENZA IMMUNOASSY DIRECT OPTICAL OBSERV (52901)Ordered By: Emily Arteaga on 01-28-2009 FLUAV Ag IA Ql (Throat) Negative Normal C omprehensive Internal Medicine Work Phone: Influenza A, H1N1, RT PCROrd ered By: Calcine Furnace Tender on 01-28-2009 Influenza A, H1N1, RT PCR Negative Normal [facility] Work Phone: Comment on above: Clinical Information : SRC:NL PERFORMED BY: [facility] Enwnyb8417 [facility] [facility] [id number] Viral Culture,Rapid,Influenz aOrdered By: Calcine Furnace Tender on 01-28-2009 FLUV identified Org specific cx Nom (Unsp spec) Final report Normal [facility] Work Phone: Comment on above: Negative:No Influenz a A or B detected. PERFORMED BY: [facility] Hnbwdd3987 [facility] [id number] Rapid Flu (47146 x 2)Ordered By: Dee Sims on 05-11-2008 FLUAV Ag IA Ql (Throat) Negative Normal C omprehensive Internal Medicine Work Phone: C-REACTIVE PROTOrdered By: Maggi ramireztem Spray Cementer on 09-04-2006 CRP mass conc 7.69 mg/L [...] or = 500 mg/dL ROUTINE UAOrdered By: Calcine Furnace Tender on 09-04-2006 Clarity Nom (U) CLOUDY Normal [...] UILAT DIAG DIGITAL & C ADOrdered By: Calcine Furnace Tender on 07-26-2006 MAMM, UINAVJOT DIAG DIGITAL & CAD See Note Normal [facility] Work Phone: Comment on above: Exam Number: [id number] MAMMOGRAM, LEFT UNILATERAL DIAGNOSTIC DIGITAL AND [...] werealso examined with computer-aided detection software ([employer], [employer] Reported By: KASIE MARCH M.D. MAMM, BILAT SCRN DIGITAL & C ADOrdered By: Calcine Furnace Tender on 07-17-2006 MAMM, BILAT SCRN DIGITAL & CAD See Note Normal [facility] Work Phone: Comment on above: Exam Number: [id number] MAMMOGRAM, BILATERAL SCREENING DIGITAL & CAD [...] mammograms werealso examined with computer-aided detection software ([employer] Reported By: KASIE MARCH M.D. Vital Signs Date Time Vital Sign Value Performing Clinician Facility 11-09-2024 08:00-0400 Body temperature 97.5 [degF] Treatment Wstr Work Phone: [facility] 11-09-2024 08:00-0400 Diastolic blood pressure 89 mm[Hg] Treatment Wstr Work Phone: [facility] 11-09-2024 08:00-0400 Heart rate 92 /min Treatment Wstr Work Phone: [facility] 11-09-2024 08:00-0400 SaO2% (BldA) [Mass fraction] 99 % Treatment Wstr Work Phone: [facility] 11-09-2024 08:00-0400 Systolic blood pressure 138 mm[Hg] Treatment Wstr Work Phone: [facility] 11-02-2024 11:11-0400 Body height 167.[address] Jacinta Rivas MD Work Phone: [facility] 11-02-2024 11:11-0400 Body mass index (BMI) [Ratio] 29 kg/m2 Dr. Jacinta Rivas MD Work Phone: [facility] 11-02-2024 11:11-0400 Body weight 81.[address] Jacinta Rivas MD Work Phone: [facility] 11-02-2024 11:11-0400 Diastolic blood pressure 78 mm[Hg] Dr. Jacinta Rivas MD Work Phone: [facility] 11-02-2024 11:11-0400 Heart rate 82 /min Dr. Jacinta Rivas MD Work Phone: [facility] 11-02-2024 11:11-0400 Respiratory rate 18 /min Dr. Jacinta Rivas MD Work Phone: [facility] 11-02-2024 11:11-0400 SaO2% (BldA) [Mass fraction] 98 % Dr. Jacinta Rivas MD Work Phone: [phone] [place] [address] 11-02-2024 11:11-0400 Systolic blood pressure 115 mm[Hg] Dr. Jacinta Rivas MD Work Phone: [facility] 10-30-2024 09:19-0400 Body mass index (BMI) [Ratio] 29.58 kg/m2 Serena Masci DO Work Phone: [facility] 10-30-2024 09:19-0400 Body temperature 98.29 [degF] Serena Masci DO Work Phone: [facility] 10-30-2024 09:19-0400 Body weight 81.87 kg Serena Masci DO Work Phone: [facility] 10-30-2024 09:19-0400 Diastolic blood pressure 78 mm[Hg] Serena Masci DO Work Phone: [facility] 10-30-2024 09:19-0400 Heart rate 91 /min Serena Masci DO Work Phone: [facility] 10-30-2024 09:19-0400 SaO2% (BldA) [Mass fraction] 100 % Serena Masci DO Work Phone: [facility] 10-30-2024 09:19-0400 Systolic blood pressure 124 mm[Hg] Serena Carrasco DO Work Phone: [facility] 10-26-2024 14:28-0400 Body mass index (BMI) [Ratio] 29.66 kg/m2 Lisbet Rona 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 Work Phone: [facility] 10-26-2024 14:28-0400 Body weight 82.1 kg Lsibet Rona 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 Work Phone: [facility] 10-26-2024 14:28-0400 Diastolic blood pressure 78 mm[Hg] Lisbet Rona 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 Work Phone: [facility] 10-26-2024 14:28-0400 Heart rate 85 /min Lisbet Rona 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 Work Phone: [facility] 10-26-2024 14:28-0400 SaO2% (BldA) [Mass fraction] 97 % Lisbet Rona 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 Work Phone: [facility] 10-26-2024 14:28-0400 Systolic blood pressure 122 mm[Hg] Lisbet Rona 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 Work Phone: [facility] 10-15-2024 13:36-0400 Body temperature 98.91 [degF] Mino Beard 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 Work Phone: [facility] 10-15-2024 13:36-0400 Diastolic blood pressure 77 mm[Hg] Mino Beard 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 Work Phone: [facility] 10-15-2024 13:36-0400 Heart rate 85 /min Mino Beard 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 Work Phone: [facility] 10-15-2024 13:36-0400 SaO2% (BldA) [Mass fraction] 99 % Mino Beard 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 Work Phone: [facility] 10-15-2024 13:36-0400 Systolic blood pressure 122 mm[Hg] Mino Beard 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 Work Phone: [facility] 10-14-2024 11:44-0400 Body height 166.4 cm Daisy Cioce 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 Work Phone: [facility] 10-14-2024 11:44-0400 Body mass index (BMI) [Ratio] 29.6 kg/m2 Daisy Cioce 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 Work Phone: [facility] 10-14-2024 11:44-0400 Body weight 81.92 kg Daisy Cioce 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 Work Phone: [facility] 10-14-2024 11:44-0400 Diastolic blood pressure 64 mm[Hg] Daisy Cioce 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 Work Phone: [facility] 10-14-2024 11:44-0400 Heart rate 84 /min Daisy Cioce 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 Work Phone: [facility] 10-14-2024 11:44-0400 Respiratory rate 17 /min Daisy Cioce 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 Work Phone: [facility] 10-14-2024 11:44-0400 SaO2% (BldA) [Mass fraction] 96 % Daisy Cioce 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 Work Phone: [facility] 10-14-2024 11:44-0400 Systolic blood pressure 110 mm[Hg] Daisy Cioce 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 Work Phone: [facility] 10-13-2024 14:59-0400 Body mass index (BMI) [Ratio] 29.34 kg/m2 Lisbet Rona 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 Work Phone: [facility] 10-13-2024 14:59-0400 Body weight 81.2 kg Lisbet Rona 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 Work Phone: [facility] 10-13-2024 14:59-0400 Diastolic blood pressure 82 mm[Hg] Lisbet Rona 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 Work Phone: [facility] 10-13-2024 14:59-0400 Heart rate 64 /min Lisbet Rona 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 Work Phone: [facility] 10-13-2024 14:59-0400 Systolic blood pressure 146 mm[Hg] Lisbet Rona 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 Work Phone: [facility] 09-22-2024 14:29-0400 Body mass index (BMI) [Ratio] 28.51 kg/m2 Nel OrozcoBarb 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 Work Phone: [facility] 09-22-2024 14:29-0400 Body weight 78.93 kg Nel OrozcoBarb 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 Work Phone: [facility] 09-22-2024 14:29-0400 Diastolic blood pressure 70 mm[Hg] Nel Barb 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 Work Phone: [facility] 09-22-2024 14:29-0400 Heart rate 88 /min Nel Arellanor 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 Work Phone: [facility] 09-22-2024 14:29-0400 Respiratory rate 14 /min Nel OrozcoBarb 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 Work Phone: [facility] 09-22-2024 14:29-0400 SaO2% (BldA) [Mass fraction] 99 % Nel OrozcoBarb 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 Work Phone: [facility] 09-22-2024 14:29-0400 Systolic blood pressure 116 mm[Hg] Nel OrozcoBarb 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 Work Phone: [facility] 09-07-2024 14:18-0400 Body mass index (BMI) [Ratio] 28.54 kg/m2 Cathy Aguileras 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 Work Phone: [facility] 09-07-2024 14:18-0400 Body weight 79 kg Cathy Aguileras 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 Work Phone: [facility] 09-07-2024 14:18-0400 Diastolic blood pressure 75 mm[Hg] Cathy Burr 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 Work Phone: [facility] 09-07-2024 14:18-0400 Heart rate 105 /min Cathy Burr 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 Work Phone: [facility] 09-07-2024 14:18-0400 Respiratory rate 16 /min Cathy Burr 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 Work Phone: [facility] 09-07-2024 14:18-0400 Systolic blood pressure 114 mm[Hg] Cathy Burr 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 Work Phone: [facility] 09-03-2024 13:12-0400 Body temperature 98.01 [degF] Micki Marcelino MD Work Phone: [facility] 09-03-2024 13:12-0400 Diastolic blood pressure 81 mm[Hg] Micki Marcelino MD Work Phone: [facility] 09-03-2024 13:12-0400 Heart rate 87 /min Micki Marcelino MD Work Phone: [facility] 09-03-2024 13:12-0400 Respiratory rate 15 /min Micki Marcelino MD Work Phone: [facility] 09-03-2024 13:12-0400 SaO2% (BldA) [Mass fraction] 99 % Micki Marcelino MD Work Phone: [facility] 09-03-2024 13:12-0400 Systolic blood pressure 135 mm[Hg] Micki Marcelino MD Work Phone: [facility] 07-15-2024 13:02-0400 Body temperature 97 [degF] Micki Butler 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 Work Phone: [facility] 07-09-2024 09:31-0400 Body mass index (BMI) [Ratio] 27.37 kg/m2 Serena Carrasco DO Work Phone: [facility] 07-09-2024 09:31-0400 Body temperature 97.2 [degF] Serena Carrasco DO Work Phone: [facility] 07-09-2024 09:31-0400 Body weight 75.75 kg Serena Masci DO Work Phone: [facility] 07-09-2024 09:31-0400 Diastolic blood pressure 86 mm[Hg] Serena Edsoni DO Work Phone: [facility] 07-09-2024 09:31-0400 Heart rate 75 /min Serena Edsoni DO Work Phone: [facility] 07-09-2024 09:31-0400 Respiratory rate 12 /min Serena Sandhui DO Work Phone: [facility] 07-09-2024 09:31-0400 SaO2% (BldA) [Mass fraction] 99 % Serena Sandhui DO Work Phone: [facility] 07-09-2024 09:31-0400 Systolic blood pressure 121 mm[Hg] Serena Sandhui DO Work Phone: [facility] 06-25-2024 13:06-0400 Body height 166.4 cm Micki Marcelino MD Work Phone: [facility] 06-25-2024 13:06-0400 Body mass index (BMI) [Ratio] 28.84 kg/m2 Micki Marcelino MD Work Phone: [facility] 06-25-2024 13:06-0400 Body temperature 96.91 [degF] Micki Marcelino MD Work Phone: [facility] 06-25-2024 13:06-0400 Body weight 79.83 kg Micki Marcelino MD Work Phone: [facility] 06-25-2024 13:06-0400 Diastolic blood pressure 87 mm[Hg] Micki Marcelino MD Work Phone: [facility] 06-25-2024 13:06-0400 Heart rate 70 /min Micki Marcelino MD Work Phone: [facility] 06-25-2024 13:06-0400 Systolic blood pressure 153 mm[Hg] Micki Marcelino MD Work Phone: [facility] 06-05-2024 08:42-0500 Diastolic blood pressure 103 mm[Hg] Cathy Burr 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 Work Phone: [facility] Comment on above: bp average 06-05-2024 08:42-0500 Heart rate 93 /min Cathy Burr 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 Work Phone: [facility] 06-05-2024 08:42-0500 Systolic blood pressure 162 mm[Hg] Cathy Burr 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 Work Phone: [facility] Comment on above: bp average 06-05-2024 08:36-0500 Body mass index (BMI) [Ratio] 28.9 kg/m2 Cathy Burr 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 Work Phone: [facility] 06-05-2024 08:36-0500 Body weight 80 kg Cathy Burr 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 Work Phone: [facility] 06-05-2024 08:36-0500 Respiratory rate 16 /min Cathy Burr 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 Work Phone: [facility] 06-04-2024 11:04-0500 Diastolic blood pressure 117 mm[Hg] Mino Beard 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 Work Phone: [facility] 06-04-2024 11:04-0500 Heart rate 96 /min Mino Beard 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 Work Phone: [facility] 06-04-2024 11:04-0500 Systolic blood pressure 176 mm[Hg] Mino Beard 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 Work Phone: [facility] 05-26-2024 10:02-0500 Diastolic blood pressure 96 mm[Hg] Cathy Burr 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 Work Phone: [facility] Comment on above: bp average 05-26-2024 10:02-0500 Heart rate 95 /min Cathy Burr 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 Work Phone: [facility] 05-26-2024 10:02-0500 SaO2% (BldA) [Mass fraction] 98 % Cathy Burr 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 Work Phone: [facility] 05-26-2024 10:02-0500 Systolic blood pressure 155 mm[Hg] Cathy Aguileras 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 Work Phone: [facility] Comment on above: bp average 05-26-2024 09:54-0500 Body mass index (BMI) [Ratio] 28.9 kg/m2 Cathy Aguileras 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 Work Phone: [facility] 05-26-2024 09:54-0500 Body weight 80 kg Cathy Aguileras 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 Work Phone: [facility] 05-26-2024 09:54-0500 Respiratory rate 16 /min Cathy Burr 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 Work Phone: [facility] 05-18-2024 14:45-0500 Body temperature 97.3 [degF] Micki Marcelino MD Work Phone: [facility] 05-18-2024 14:45-0500 Diastolic blood pressure 68 mm[Hg] Micki Marcelino MD Work Phone: [facility] 05-18-2024 14:45-0500 Heart rate 80 /min Micki Marcelino MD Work Phone: [facility] 05-18-2024 14:45-0500 Respiratory rate 18 /min Micki Marcelino MD Work Phone: [facility] 05-18-2024 14:45-0500 SaO2% (BldA) [Mass fraction] 97 % Micki Marcelino MD Work Phone: [facility] 05-18-2024 14:45-0500 Systolic blood pressure 122 mm[Hg] Micki Marcelino MD Work Phone: [facility] 05-18-2024 10:26-0500 Body mass index (BMI) [Ratio] 28.72 kg/m2 Micki Marcelino MD Work Phone: [facility] 05-18-2024 10:26-0500 Body weight 79.5 kg Micki Marcelino MD Work Phone: [facility] 05-12-2024 09:41-0500 Body mass index (BMI) [Ratio] 27.82 kg/m2 Cathy Burr 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 Work Phone: [facility] 05-12-2024 09:41-0500 Body weight 77 kg Cathy Burr 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 Work Phone: [facility] 05-12-2024 09:41-0500 Diastolic blood pressure 92 mm[Hg] Cathy Burr 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 Work Phone: [facility] 05-12-2024 09:41-0500 Heart rate 92 /min Cathy Burr 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 Work Phone: [facility] 05-12-2024 09:41-0500 Respiratory rate 16 /min Cathy Burr 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 Work Phone: [facility] 05-12-2024 09:41-0500 Systolic blood pressure 142 mm[Hg] Cathy Burr 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 Work Phone: [facility] 05-07-2024 07:46-0500 Diastolic blood pressure 86 mm[Hg] Cathy Burr 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 Work Phone: [facility] 05-07-2024 07:46-0500 Systolic blood pressure 136 mm[Hg] Cathy Burr 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 Work Phone: [facility] 05-07-2024 07:44-0500 Body mass index (BMI) [Ratio] 27.46 kg/m2 Cathy Burr 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 Work Phone: [facility] 05-07-2024 07:44-0500 Body weight 76 kg Cathy Burr 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 Work Phone: [facility] 05-07-2024 07:44-0500 Heart rate 92 /min Cathy Burr 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 Work Phone: [facility] 05-07-2024 07:44-0500 Respiratory rate 16 /min Cathy Burr 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 Work Phone: [facility] 05-04-2024 11:10-0500 Body height 166.4 cm [facility] Comment on above: patient reported 05-04-2024 11:10-0500 Body mass index (BMI) [Ratio] 27.04 kg/m2 [facility] 05-04-2024 11:10-0500 Body weight 74.84 kg [facility] Comment on above: patient reported 05-04-2024 11:10-0500 Heart rate 82 /min [facility] Comment on above: [facility] 04-28-2024 14:56-0500 Body mass index (BMI) [Ratio] 28.05 kg/m2 Carla Forbes 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 Work Phone: [facility] 04-28-2024 14:56-0500 Body temperature 99.19 [degF] Carla Forbes 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 Work Phone: [facility] 04-28-2024 14:56-0500 Body weight 77.3 kg Carla Forbes 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 Work Phone: [facility] 04-28-2024 14:56-0500 Diastolic blood pressure 80 mm[Hg] Carla Forbes 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 Work Phone: [facility] 04-28-2024 14:56-0500 Heart rate 96 /min Carla Forbes 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 Work Phone: [facility] 04-28-2024 14:56-0500 Respiratory rate 16 /min Carla Forbes 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 Work Phone: [facility] 04-28-2024 14:56-0500 SaO2% (BldA) [Mass fraction] 96 % Carla Forbes 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 Work Phone: [facility] 04-28-2024 14:56-0500 Systolic blood pressure 126 mm[Hg] Carla Forbes 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 Work Phone: [facility] 04-15-2024 12:10-0500 Body mass index (BMI) [Ratio] 27.33 kg/m2 Daisy Cioce 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 Work Phone: [facility] 04-15-2024 12:10-0500 Body temperature 97.81 [degF] Daisy Cioce 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 Work Phone: [facility] 04-15-2024 12:10-0500 Body weight 75.3 kg Daisy Cioce 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 Work Phone: [facility] 04-15-2024 12:10-0500 Diastolic blood pressure 92 mm[Hg] Daisy Cioce 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 Work Phone: [facility] 04-15-2024 12:10-0500 Heart rate 98 /min Daisy Cioce 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 Work Phone: [facility] 04-15-2024 12:10-0500 SaO2% (BldA) [Mass fraction] 98 % Daisy Cioce 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 Work Phone: [facility] 04-15-2024 12:10-0500 Systolic blood pressure 146 mm[Hg] Daisy Cioce 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 Work Phone: [facility] 04-13-2024 15:01-0500 Body temperature 97.3 [degF] Treatment Wstr Work Phone: [facility] 04-13-2024 15:01-0500 Diastolic blood pressure 92 mm[Hg] Treatment Wstr Work Phone: [facility] 04-13-2024 15:01-0500 Heart rate 98 /min Treatment Wstr Work Phone: [facility] 04-13-2024 15:01-0500 Respiratory rate 18 /min Treatment Wstr Work Phone: [facility] 04-13-2024 15:01-0500 SaO2% (BldA) [Mass fraction] 99 % Treatment Wstr Work Phone: [facility] 04-13-2024 15:01-0500 Systolic blood pressure 142 mm[Hg] Treatment Wstr Work Phone: [facility] 04-10-2024 08:59-0500 Body mass index (BMI) [Ratio] 28.15 kg/m2 Serena Carrasco DO Work Phone: [facility] 04-10-2024 08:59-0500 Body temperature 98.49 [degF] Serena Sandhui DO Work Phone: [facility] 04-10-2024 08:59-0500 Body weight 77.56 kg Serena Sandhui DO Work Phone: [facility] 04-10-2024 08:59-0500 Diastolic blood pressure 90 mm[Hg] Serena Sanduhi DO Work Phone: [facility] 04-10-2024 08:59-0500 Heart rate 100 /min Serena Carrasco DO Work Phone: [facility] 04-10-2024 08:59-0500 SaO2% (BldA) [Mass fraction] 96 % Serena Carrasco DO Work Phone: [facility] 04-10-2024 08:59-0500 Systolic blood pressure 134 mm[Hg] Serena Carrasco DO Work Phone: [facility] 03-18-2024 14:22-0500 Diastolic blood pressure 88 mm[Hg] Jacinta Rivas MD Work Phone: [facility] 03-18-2024 14:22-0500 Systolic blood pressure 138 mm[Hg] Jacinta Rivas MD Work Phone: [facility] 03-18-2024 13:20-0500 Body height 166 cm Jacinta Rivas MD Work Phone: [facility] 03-18-2024 13:20-0500 Body mass index (BMI) [Ratio] 27.51 kg/m2 Jacinta Rivas MD Work Phone: [facility] 03-18-2024 13:20-0500 Body temperature 98.01 [degF] Jacinta Rivas MD Work Phone: [facility] 03-18-2024 13:20-0500 Body weight 75.8 kg Jacinta Rivas MD Work Phone: [facility] 03-18-2024 13:20-0500 Heart rate 82 /min Jacinta iRvas MD Work Phone: [facility] 03-18-2024 13:20-0500 Respiratory rate 16 /min Jacinta Rivas MD Work Phone: [facility] 03-18-2024 13:20-0500 SaO2% (BldA) [Mass fraction] 98 % Jacinta Rivas MD Work Phone: [facility] 02-05-2024 14:02-0400 Body height 164.5 cm Daisy Cioce 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 Work Phone: [facility] 02-05-2024 14:02-0400 Body mass index (BMI) [Ratio] 27.9 kg/m2 Daisy Cioce 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 Work Phone: [facility] 02-05-2024 14:02-0400 Body temperature 97.81 [degF] Daisy Cioce 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 Work Phone: [facility] 02-05-2024 14:02-0400 Body weight 75.48 kg Daisy Cioce 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 Work Phone: [facility] 02-05-2024 14:02-0400 Heart rate 81 /min Daisy Cioce 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 Work Phone: [facility] 02-05-2024 14:02-0400 SaO2% (BldA) [Mass fraction] 97 % Daisy Cioce 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 Work Phone: [facility] 01-06-2024 10:08-0400 Body mass index (BMI) [Ratio] 27.42 kg/m2 Serena Carrasco DO Work Phone: [facility] 01-06-2024 10:08-0400 Body temperature 98.49 [degF] Serena Carrasco DO Work Phone: [facility] 01-06-2024 10:08-0400 Body weight 74.16 kg Serena Masci DO Work Phone: [facility] 01-06-2024 10:08-0400 Diastolic blood pressure 96 mm[Hg] Serena Masci DO Work Phone: [facility] 01-06-2024 10:08-0400 Heart rate 92 /min Serena Masci DO Work Phone: [facility] 01-06-2024 10:08-0400 SaO2% (BldA) [Mass fraction] 97 % Serena Masci DO Work Phone: [facility] 01-06-2024 10:08-0400 Systolic blood pressure 168 mm[Hg] Serena Masci DO Work Phone: [facility] 11-11-2023 08:54-0400 Body mass index (BMI) [Ratio] 27.42 kg/m2 Serena Masci DO Work Phone: [facility] 11-11-2023 08:54-0400 Body temperature 98.4 [degF] Serena Masci DO Work Phone: [facility] 11-11-2023 08:54-0400 Body weight 74.16 kg Serena Masci DO Work Phone: [facility] 11-11-2023 08:54-0400 Diastolic blood pressure 77 mm[Hg] Serena Masci DO Work Phone: [facility] 11-11-2023 08:54-0400 Heart rate 92 /min Serena Masci DO Work Phone: [facility] 11-11-2023 08:54-0400 SaO2% (BldA) [Mass fraction] 99 % Serena Masci DO Work Phone: [facility] 11-11-2023 08:54-0400 Systolic blood pressure 118 mm[Hg] Serena Masci DO Work Phone: [facility] 10-23-2023 13:10-0400 Body mass index (BMI) [Ratio] 27.69 kg/m2 Lisbet Rona 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 Work Phone: [facility] 10-23-2023 13:10-0400 Body temperature 100.4 [degF] Lisbet Rona 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 Work Phone: [facility] 10-23-2023 13:10-0400 Body weight 74.89 kg Lisbet Rona 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 Work Phone: [facility] 10-23-2023 13:10-0400 Diastolic blood pressure 62 mm[Hg] Lisbet Rona 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 Work Phone: [facility] 10-23-2023 13:10-0400 Heart rate 120 /min Lisbet Rona 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 Work Phone: [facility] 10-23-2023 13:10-0400 Respiratory rate 16 /min Lisbet Rona 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 Work Phone: [facility] 10-23-2023 13:10-0400 SaO2% (BldA) [Mass fraction] 97 % Lisbet Rona 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 Work Phone: [facility] 10-23-2023 13:10-0400 Systolic blood pressure 98 mm[Hg] Lisbet Rona 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 Work Phone: [facility] 10-18-2023 17:28-0400 Body mass index (BMI) [Ratio] 28.1 kg/m2 Severino Moomaw 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 Work Phone: [facility] 10-18-2023 17:28-0400 Body temperature 98.29 [degF] Severino Moomaw 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 Work Phone: [facility] 10-18-2023 17:28-0400 Body weight 76 kg Severino Moomaw 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 Work Phone: [facility] 10-18-2023 17:28-0400 Diastolic blood pressure 82 mm[Hg] Severino Moomaw 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 Work Phone: [facility] 10-18-2023 17:28-0400 Heart rate 83 /min Severino Moomaw 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 Work Phone: [facility] 10-18-2023 [id number] Respiratory rate 20 /min Severino Moomaw 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 Work Phone: [facility] 10-18-2023 17:28-0400 SaO2% (BldA) [Mass fraction] 99 % Severino Moomaw 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 Work Phone: [facility] 10-18-2023 [id number] Systolic blood pressure 145 mm[Hg] Severino Moomaw 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 Work Phone: [facility] 08-05-2023 10:14-0400 Body mass index (BMI) [Ratio] 30.52 kg/m2 Serena Edsoni DO Work Phone: [facility] 08-05-2023 10:140400 Body temperature 98.6 [degF] Serena Masci DO Work Phone: [facility] 08-05-2023 10:14-0400 Body weight 82.56 kg Serena Masci DO Work Phone: [facility] 08-05-2023 10:14-0400 Diastolic blood pressure 78 mm[Hg] Serena Masci DO Work Phone: [facility] 08-05-2023 10:14-0400 Heart rate 87 /min Serena Masci DO Work Phone: [facility] 08-05-2023 10:14-0400 SaO2% (BldA) [Mass fraction] 99 % Serena Masci DO Work Phone: [facility] 08-05-2023 10:14-0400 Systolic blood pressure 149 mm[Hg] Serena Masci DO Work Phone: [facility] [id number] Body mass index (BMI) [Ratio] 30.22 kg/m2 Jacinta Rivas MD Work Phone: [facility] [id number] Body weight 81.74 kg Jacinta Rivas MD Work Phone: [facility] 07-16-2023 11:03-0400 Diastolic blood pressure 86 mm[Hg] Jacinta Rivas MD Work Phone: [facility] 07-16-2023 11:03-0400 Heart rate 90 /min Jacinta Rivas MD Work Phone: [facility] 07-16-2023 11:03-0400 SaO2% (BldA) [Mass fraction] 100 % Jacinta Rivas MD Work Phone: [facility] 07-16-2023 11:03-0400 Systolic blood pressure 122 mm[Hg] Jacinta Rivas MD Work Phone: [facility] 07-08-2023 20:35-0400 Body temperature 97.5 [degF] [facility] 07-08-2023 20:35-0400 Diastolic blood pressure 71 mm[Hg] [facility] 07-08-2023 20:35-0400 Heart rate 72 /min [facility] 07-08-2023 20:35-0400 Respiratory rate 15 /min [facility] 07-08-2023 20:35-0400 SaO2% (BldA) [Mass fraction] 97 % [facility] 07-08-2023 20:35-0400 Systolic blood pressure 132 mm[Hg] [facility] 07-08-2023 16:09-0400 Body height 167.64 cm [facility] 07-08-2023 16:09-0400 Body mass index (BMI) [Ratio] 29.9 kg/m2 [facility] 07-08-2023 16:09-0400 Body weight 84.36 kg [facility] 07-08-2023 15:00-0400 Body temperature 99.39 [degF] Carla Forbes 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 Work Phone: [facility] 07-08-2023 15:00-0400 Body weight 83.8 kg Carla Forbes 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 Work Phone: [facility] 07-08-2023 15:00-0400 Diastolic blood pressure 88 mm[Hg] Carla Forbes 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 Work Phone: [facility] 07-08-2023 15:00-0400 Heart rate 103 /min Carla Forbes 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 Work Phone: [facility] 07-08-2023 15:00-0400 Respiratory rate 19 /min Carla Forbes 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 Work Phone: [facility] 07-08-2023 15:00-0400 Systolic blood pressure 130 mm[Hg] Carla Forbes 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 Work Phone: [facility] 07-05-2023 09:04-0400 Body temperature 97.9 [degF] Michell David Work Phone: [facility] 07-05-2023 09:04-0400 Body weight 85.05 kg Michell David Work Phone: [facility] 07-05-2023 09:04-0400 Diastolic blood pressure 85 mm[Hg] Michell David Work Phone: [facility] 07-05-2023 09:04-0400 Heart rate 93 /min Michell David Work Phone: [facility] 07-05-2023 09:04-0400 SaO2% (BldA) [Mass fraction] 98 % Michell David Work Phone: [facility] 07-05-2023 09:04-0400 Systolic blood pressure 131 mm[Hg] Michell David Work Phone: [facility] 03-05-2023 09:15-0500 Body temperature 98.1 [degF] Injection Wstr Work Phone: [facility] 03-05-2023 09:15-0500 Body weight 85.73 kg Injection Wstr Work Phone: [facility] 03-05-2023 09:15-0500 Diastolic blood pressure 78 mm[Hg] Injection Wstr Work Phone: [facility] 03-05-2023 09:15-0500 Heart rate 89 /min Injection Wstr Work Phone: [facility] 03-05-2023 09:15-0500 Systolic blood pressure 120 mm[Hg] Injection Wstr Work Phone: [facility] 12-26-2022 14:30-0400 Body temperature 97.81 [degF] Treatment Wstr Work Phone: [facility] 12-26-2022 14:30-0400 Diastolic blood pressure 81 mm[Hg] Treatment Wstr Work Phone: [facility] 12-26-2022 14:30-0400 Heart rate 81 /min Treatment [facility] Work Phone: [facility] [facility] 12-26-2022 14:30-0400 Systolic blood pressure 119 mm[Hg] Treatment Wstr Work Phone: [facility] 12-17-2022 15:18-0400 Body temperature 97.59 [degF] Serena Masci DO Work Phone: [facility] 12-17-2022 15:18-0400 Body weight 86.41 kg Serena Masci DO Work Phone: [facility] 12-17-2022 15:18-0400 Diastolic blood pressure 67 mm[Hg] Serena Masci DO Work Phone: [facility] 12-17-2022 15:18-0400 Heart rate 73 /min Serena Masci DO Work Phone: [facility] 12-17-2022 15:18-0400 SaO2% (BldA) [Mass fraction] 98 % Serena Masci DO Work Phone: [facility] 12-17-2022 15:18-0400 Systolic blood pressure 110 mm[Hg] Serena Masci DO Work Phone: [facility] 12-13-2022 09:29-0400 Body temperature 98.49 [degF] Injection Wstr Work Phone: [facility] 12-13-2022 09:29-0400 Body weight 85.28 kg Injection Wstr Work Phone: [facility] 12-13-2022 09:29-0400 Diastolic blood pressure 62 mm[Hg] Injection Wstr Work Phone: [facility] 12-13-2022 09:29-0400 Heart rate 57 /min Injection Wstr Work Phone: [facility] 12-13-2022 09:29-0400 Systolic blood pressure 103 mm[Hg] Injection Wstr Work Phone: [facility] 11-15-2022 09:24-0400 Body temperature 97 [degF] Injection Wstr Work Phone: [facility] 11-15-2022 09:24-0400 Body weight 86.64 kg Injection Wstr Work Phone: [facility] 11-15-2022 09:24-0400 Diastolic blood pressure 83 mm[Hg] Injection Wstr Work Phone: [facility] 11-15-2022 09:24-0400 Heart rate 82 /min Injection Wstr Work Phone: [facility] 11-15-2022 09:24-0400 Systolic blood pressure 119 mm[Hg] Injection Wstr Work Phone: [facility] 11-07-2022 10:08-0400 Body temperature 97.2 [degF] Treatment Wstr Work Phone: [facility] 11-07-2022 10:08-0400 Diastolic blood pressure 83 mm[Hg] Treatment Wstr Work Phone: [facility] 11-07-2022 10:08-0400 Heart rate 72 /min Treatment Wstr Work Phone: [facility] 11-07-2022 10:08-0400 SaO2% (BldA) [Mass fraction] 99 % Treatment Wstr Work Phone: [facility] 11-07-2022 10:08-0400 Systolic blood pressure 127 mm[Hg] Treatment Wstr Work Phone: [facility] 11-06-2022 13:32-0400 Body temperature 97.5 [degF] Treatment Wstr Work Phone: [facility] 11-06-2022 13:32-0400 Diastolic blood pressure 65 mm[Hg] Treatment Wstr Work Phone: [facility] 11-06-2022 13:32-0400 Heart rate 78 /min Treatment Wstr Work Phone: [facility] 11-06-2022 13:32-0400 Respiratory rate 18 /min Treatment Wstr Work Phone: [facility] 11-06-2022 13:32-0400 Systolic blood pressure 117 mm[Hg] Treatment Wstr Work Phone: [facility] 10-18-2022 09:30-0400 Body temperature 97.3 [degF] Injection Wstr Work Phone: [facility] 10-18-2022 09:30-0400 Body weight 87.54 kg Injection Wstr Work Phone: [facility] 10-18-2022 09:30-0400 Diastolic blood pressure 71 mm[Hg] Injection Wstr Work Phone: [facility] 10-18-2022 09:30-0400 Heart rate 75 /min Injection Wstr Work Phone: [facility] 10-18-2022 09:30-0400 Systolic blood pressure 102 mm[Hg] Injection Wstr Work Phone: [facility] 09-25-2022 12:27-0400 Diastolic blood pressure 80 mm[Hg] Treatment Wstr Work Phone: [facility] 09-25-2022 12:27-0400 Heart rate 75 /min Treatment Wstr Work Phone: [facility] 09-25-2022 12:27-0400 Systolic blood pressure 126 mm[Hg] Treatment Wstr Work Phone: [facility] 09-21-2022 13:23-0400 Body temperature 97.59 [degF] Treatment Wstr Work Phone: [facility] 09-21-2022 13:23-0400 Diastolic blood pressure 57 mm[Hg] Treatment Wstr Work Phone: [facility] 09-21-2022 13:23-0400 Heart rate 87 /min Treatment Wstr Work Phone: [facility] 09-21-2022 13:23-0400 Respiratory rate 16 /min Treatment Wstr Work Phone: [facility] 09-21-2022 13:23-0400 SaO2% (BldA) [Mass fraction] 100 % Treatment Wstr Work Phone: [facility] 09-21-2022 13:23-0400 Systolic blood pressure 125 mm[Hg] Treatment Wstr Work Phone: [facility] 09-20-2022 10:34-0400 Body temperature 97.2 [degF] Serena Masci DO Work Phone: [facility] 09-20-2022 10:34-0400 Body weight 89.36 kg Serena Masci DO Work Phone: [facility] 09-20-2022 10:34-0400 Diastolic blood pressure 57 mm[Hg] Serena Masci DO Work Phone: [facility] 09-20-2022 10:34-0400 Heart rate 91 /min Serena Masci DO Work Phone: [facility] 09-20-2022 10:34-0400 SaO2% (BldA) [Mass fraction] 97 % Serena Masci DO Work Phone: [facility] 09-20-2022 10:34-0400 Systolic blood pressure 91 mm[Hg] Serena Masci DO Work Phone: [facility] 09-06-2022 09:07-0400 Body temperature 97.9 [degF] Injection Wstr Work Phone: [facility] 09-06-2022 09:07-0400 Body weight 89.36 kg Injection Wstr Work Phone: [facility] 09-06-2022 09:07-0400 Diastolic blood pressure 74 mm[Hg] Injection Wstr Work Phone: [facility] 09-06-2022 09:07-0400 Heart rate 83 /min Injection Wstr Work Phone: [facility] 09-06-2022 09:07-0400 Systolic blood pressure 112 mm[Hg] Injection Wstr Work Phone: [facility] 08-13-2022 10:33-0400 Body height 167.6 cm Kam Dangelo MD Work Phone: [facility] 08-13-2022 10:33-0400 Body weight 92.08 kg Kma Dangelo MD Work Phone: [facility] 08-13-2022 10:33-0400 Diastolic blood pressure 87 mm[Hg] Kam Dangelo MD Work Phone: [facility] 08-13-2022 10:33-0400 Heart rate 70 /min Kam Dangelo MD Work Phone: [facility] 08-13-2022 10:33-0400 SaO2% (BldA) [Mass fraction] 98 % Kam Dangelo MD Work Phone: [facility] 08-13-2022 10:33-0400 Systolic blood pressure 144 mm[Hg] Kam Dangelo MD Work Phone: [facility] 08-09-2022 14:16-0400 Body height 167.6 cm Pacc 1 Work Phone: [facility] 08-09-2022 14:16-0400 Body temperature 97.5 [degF] Pacc 1 Work Phone: [facility] 08-09-2022 14:16-0400 Body weight 92.08 kg Pacc 1 Work Phone: [facility] 08-09-2022 14:16-0400 Diastolic blood pressure 69 mm[Hg] Pacc 1 Work Phone: [facility] 08-09-2022 14:16-0400 Heart rate 96 /min Pacc 1 Work Phone: [facility] 08-09-2022 14:16-0400 Respiratory rate 16 /min Pacc 1 Work Phone: [facility] 08-09-2022 14:16-0400 SaO2% (BldA) [Mass fraction] 97 % Pacc 1 Work Phone: [facility] 08-09-2022 14:16-0400 Systolic blood pressure 119 mm[Hg] Pacc 1 Work Phone: [facility] 08-01-2022 14:59-0400 Body height 165.5 cm Serena Masci DO Work Phone: [facility] 08-01-2022 14:59-0400 Body temperature 98.29 [degF] Serena Masci DO Work Phone: [facility] 08-01-2022 14:59-0400 Body weight 91.85 kg Serena Masci DO Work Phone: [facility] 08-01-2022 14:59-0400 Diastolic blood pressure 78 mm[Hg] Serena Masci DO Work Phone: [facility] 08-01-2022 14:59-0400 Heart rate 95 /min Serena Masci DO Work Phone: [facility] 08-01-2022 14:59-0400 SaO2% (BldA) [Mass fraction] 98 % Sreena Masci DO Work Phone: [facility] 08-01-2022 14:59-0400 Systolic blood pressure 124 mm[Hg] Serena Masci DO Work Phone: [facility] 07-09-2022 11:06-0400 Body temperature 96.8 [degF] Treatment Wstr Work Phone: [facility] 07-09-2022 11:06-0400 Diastolic blood pressure 77 mm[Hg] Treatment Wstr Work Phone: [facility] 07-09-2022 11:06-0400 Heart rate 90 /min Treatment Wstr Work Phone: [facility] 07-09-2022 11:06-0400 Respiratory rate 18 /min Treatment Wstr Work Phone: [facility] 07-09-2022 11:06-0400 Systolic blood pressure 119 mm[Hg] Treatment Wstr Work Phone: [facility] 07-04-2022 09:54-0400 Body height 165.7 cm Serena Edsoni DO Work Phone: [facility] 07-04-2022 09:54-0400 Body temperature 97 [degF] Serena Edsoni DO Work Phone: [facility] 07-04-2022 09:54-0400 Body weight 91.63 kg Serena Masci DO Work Phone: [facility] 07-04-2022 09:54-0400 Diastolic blood pressure 81 mm[Hg] Serena Masci DO Work Phone: [facility] 07-04-2022 09:54-0400 Heart rate 80 /min Serena Edsoni DO Work Phone: [facility] 07-04-2022 09:54-0400 SaO2% (BldA) [Mass fraction] 94 % Serena Edsoni DO Work Phone: [facility] 07-04-2022 09:54-0400 Systolic blood pressure 118 mm[Hg] Serena Edsoni DO Work Phone: [facility] 02-19-2022 09:31-0500 Body height 166.4 cm Jacinta Rivas MD Work Phone: [facility] 02-19-2022 09:31-0500 Body weight 90.72 kg Jacinta Rivas MD Work Phone: [facility] 02-19-2022 09:31-0500 Diastolic blood pressure 78 mm[Hg] Jacinta Rivas MD Work Phone: [facility] 02-19-2022 09:31-0500 Heart rate 85 /min Jacinta Rivas MD Work Phone: [facility] 02-19-2022 09:31-0500 SaO2% (BldA) [Mass fraction] 98 % Jacinta Rivas MD Work Phone: [facility] 02-19-2022 09:31-0500 Systolic blood pressure 112 mm[Hg] Jacinta Rivas MD Work Phone: [facility] 02-05-2022 10:12-0400 Body temperature 99 [degF] Victoria Duarte APRN.[employer]ARD [employer]ATCHER Work Phone: [facility] 02-05-2022 10:12-0400 Body weight 91.44 kg Victoria Duarte APRN.[employer]ARD [employer]PATCHER Work Phone: [facility] 02-05-2022 10:12-0400 Diastolic blood pressure 92 mm[Hg] Victoria Duarte APRN.[employer] GUARD [employer]PATCHER Work Phone: [facility] 02-05-2022 10:12-0400 Heart rate 95 /min Victoria Duarte APRN.[employer]ARD [employer]PATCHER Work Phone: [facility] 02-05-2022 10:12-0400 Respiratory rate 24 /min Victoria Duarte APRN.[employer]ARD [employer]PATCHER Work Phone: [facility] 02-05-2022 10:12-0400 SaO2% (BldA) [Mass fraction] 98 % Victoria Duarte APRN.[employer]UR[employer] GUARD DISPATCHER Work Phone: [facility] 02-05-2022 10:12-0400 Systolic blood pressure 130 mm[Hg] Victoria Duarte APRN.SECUR[employer] GUARD DISPATCHER Work Phone: [facility] 01-22-2022 11:00-0400 Body temperature 98.01 [degF] Treatment Wstr Work Phone: [facility] 01-22-2022 11:00-0400 Body weight 90.49 kg Treatment Wstr Work Phone: [facility] 01-22-2022 11:00-0400 Diastolic blood pressure 79 mm[Hg] Treatment Wstr Work Phone: [facility] 01-22-2022 11:00-0400 Heart rate 69 /min Treatment Wstr Work Phone: [facility] 01-22-2022 11:00-0400 Respiratory rate 18 /min Treatment Wstr Work Phone: [facility] 01-22-2022 11:00-0400 SaO2% (BldA) [Mass fraction] 98 % Treatment Wstr Work Phone: [facility] 01-22-2022 11:00-0400 Systolic blood pressure 115 mm[Hg] Treatment Wstr Work Phone: [facility] 08-07-2021 09:02-0400 Body temperature 97.3 [degF] Treatment Wstr Work Phone: [facility] 08-07-2021 09:02-0400 Diastolic blood pressure 86 mm[Hg] Treatment Wstr Work Phone: [facility] 08-07-2021 09:02-0400 Heart rate 72 /min Treatment Wstr Work Phone: [facility] 08-07-2021 09:02-0400 Systolic blood pressure 113 mm[Hg] Treatment Wstr Work Phone: [facility] 08-02-2021 09:00-0400 Body height 165.7 cm Serena Masci DO Work Phone: [facility] 08-02-2021 09:00-0400 Body temperature 98.71 [degF] Serena Masci DO Work Phone: [facility] 08-02-2021 09:00-0400 Body weight 90.27 kg Serena Masci DO Work Phone: [facility] 08-02-2021 09:00-0400 Diastolic blood pressure 75 mm[Hg] Serena Masci DO Work Phone: [facility] 08-02-2021 09:00-0400 Heart rate 86 /min Serena Masci DO Work Phone: [facility] 08-02-2021 09:00-0400 Systolic blood pressure 111 mm[Hg] Serena Masci DO Work Phone: [facility] 03-14-2017 11:48-0500 BMI (Body Mass Index) 30.46 kg/m2 Mindi Dasilva [facility] Work Phone: 03-14-2017 11:48-0500 Body [...] 11:50-0500 BP Systolic 120 mm[Hg] Mindi Dasilva [facility] Work Phone: Comment on above: Patient Position: Standing; Cuff Locatio n: Left Arm; Cuff Size: Large 02-11-2017 11:50-0500 BSA (Body Surface Area) 2 m2 Mindi Dasilva [facility] Work Phone: 02-11-2017 11:50-0500 Height 170.18 cm Mindi Dasilva [facility] Work Phone: 02-11-2017 11:50-0500 Pulse (Heart Rate) 98 /min Mindi Dasilva [facility] Work Phone: Comment on above: Pattern: Regular 02-11-2017 11:50-0500 Pulse Oximetry 98 % Mindi Dasilva [facility] Work Phone: Comment on above: Room air 02-11-2017 11:50-0500 Respiratory Rate 18 /min Mindi Dasilva [facility] Work Phone: Comment on above: Pattern: Unlabored 02-11-2017 11:50-0500 Weight 88.17 kg Mindi Dasilva [facility] Work Phone: 07-28-2015 07:53-0400 BMI (Body Mass Index) 29.5 kg/m2 Mindi Dasilva [facility] Work Phone: 07-28-2015 07:53-0400 Body weight 85.45 kg Mindi Dasilva [facility] Work Phone: 07-28-2015 07:53-0400 BP Diastolic 78 mm[Hg] Mindi Dasilva [facility] Work Phone: Comment on above: Patient Position: Sitting; Cuff Location : Left Arm; Cuff Size: Large 07-28-2015 07:53-0400 BP Systolic 118 mm[Hg] Mindi Dasilva [facility] Work Phone: Comment on above: Patient Position: Sitting; Cuff Location : Left Arm; Cuff Size: Large 07-28-2015 07:53-0400 BSA (Body Surface Area) 1.97 m2 Mindi Dasilva [facility] Work Phone: 07-28-2015 07:53-0400 Height 170.18 cm Mindi Dasilva [facility] Work Phone: 07-28-2015 07:53-0400 Pulse (Heart Rate) 108 /min Mindi Dasilva [facility] Work Phone: Comment on above: Pattern: Regular 07-28-2015 07:53-0400 Pulse Oximetry 98 % Mindi Dasilva [facility] Work Phone: Comment on above: Room air 07-28-2015 07:53-0400 Respiratory Rate 18 /min Mindi Dasilva [facility] Work Phone: Comment on above: Pattern: Unlabored 07-28-2015 07:53-0400 Weight 85.45 kg Mindi Dasilva [facility] Work Phone: 07-18-2015 11:48-0400 BMI (Body Mass Index) 29.97 kg/m2 Mindi Dasilva [facility] Work Phone: 07-18-2015 11:48-0400 Body Temperature 98.7 [degF] Mindi Dasilva [facility] Work Phone: 07-18-2015 11:48-0400 Body weight 86.81 kg Mindi Dasilva [facility] Work Phone: 07-18-2015 11:48-0400 BP Diastolic 64 mm[Hg] Mindi Dasilva [facility] Work Phone: Comment on above: Patient Position: Sitting; Cuff Location : Left Arm; Cuff Size: Large 07-18-2015 11:48-0400 BP Systolic 120 mm[Hg] Mindi Dasilva [facility] Work Phone: Comment on [...] 13:18-0500 Pulse Oximetry 99 % Mindi Dasilva [facility] Work Phone: Comment on above: Room air 06-13-2015 13:18-0500 Respiratory Rate 16 /min Mindi Dasilva [facility] Work Phone: Comment on above: Pattern: Unlabored 06-13-2015 13:18-0500 Weight 83.52 kg Mindi Dasilva [facility] Work Phone: 10-18-2014 09:46-0400 Body Temperature 97.2 [degF] Mindi [facility] Work Phone: 10-18-2014 09:46-0400 Body weight 83.52 kg Mindi Dasilva [facility] Work Phone: 10-18-2014 09:46-0400 BP [...] 09:16-0400 Body weight 83.01 kg Mindi Dasilva [facility] Work Phone: 07-16-2014 09:16-0400 BP [...] 09:16-0400 Respiratory Rate 16 /min Mindi Dasilva [facility] Work Phone: Comment on above: Pattern: Unlabored 07-16-2014 09:16-0400 Weight 83.01 kg Mindi Dasilva [facility] Work Phone: 07-02-2014 09:08-0400 Body Temperature 98.2 [degF] Mindi Dasilva [facility] Work Phone: Comment on above: Method: Oral 07-02-2014 09:08-0400 Body weight 83.01 kg Mindi Paredes [facility] Work Phone: 07-02-2014 09:08-0400 BP Diastolic 88 mm[Hg] Mindi Dasilva [facility] Work Phone: Comment on above: Patient Position: Sitting; Cuff Location : Left Arm; Cuff Size: Standard 07-02-2014 09:08-0400 BP Systolic 146 mm[Hg] Mindi Dasilva [facility] Work Phone: Comment on above: Patient Position: Sitting; Cuff Location : Left Arm; Cuff Size: Standard 07-02-2014 09:08-0400 Pulse (Heart Rate) 70 /min Mindi Dasilva [facility] Work Phone: Comment on above: Pattern: Regular 07-02-2014 09:08-0400 Pulse Oximetry 98 % Mindi Dasilva [facility] Work Phone: Comment on above: Room air 07-02-2014 09:08-0400 Respiratory Rate 18 /min Mindi Dasilva [facility] Work Phone: 07-02-2014 09:08-0400 Weight 83.01 kg Mindi Dasilva [facility] Work Phone: 03-19-2014 08:56-0500 Body weight 83.01 kg Mindi Dasilva [facility] Work Phone: 03-19-2014 08:56-0500 BP Diastolic 88 mm[Hg] Mindi Dasilva [facility] Work Phone: Comment on [...] 08:56-0500 Respiratory Rate 20 /min Mindi Dasilva [facility] Work Phone: Comment on above: Pattern: Unlabored 03-19-2014 08:56-0500 Weight 83.01 kg Mindi Dasilva [facility] Work Phone: 11-30-2013 10:13-0400 BMI (Body Mass Index) 29.06 kg/m2 Mindi Dasilva [facility] Work Phone: 11-30-2013 10:130400 Body weight 84.17 kg Mindi Dasilva [facility] Work Phone: 11-30-2013 10:13-0400 BP [...] (Body Surface Area) 1.96 m2 Mindi Dasilva [facility] Work Phone: 11-30-2013 10:130400 Height 170.18 cm Mindi Dasilva [facility] Work Phone: 11-30-2013 10:13-0400 Pulse (Heart Rate) 86 /min Mindi Paredes [facility] Work Phone: Comment on above: Pattern: Regular 11-30-2013 10:13-0400 Pulse Oximetry 97 % Minid Paredes [facility] Work Phone: Comment on above: Room air 11-30-2013 10:130400 Respiratory Rate 20 /min Mindi Paredes [facility] Work Phone: Comment on above: Pattern: Unlabored 11-30-2013 10:130400 Weight 84.17 kg Mindi Pareeds [facility] Work Phone: 11-18-2013 15:19-0400 BMI [...] 09:38-0400 BP Diastolic 82 mm[Hg] Mindi Dasilva [facility] Work Phone: Comment on [...] 11-02-2013 09:38-0400 Height 170.18 cm Mindi Dasilva [facility] Work Phone: 11-02-2013 09:38-0400 Pulse [...] 10-14-2013 09:08-0400 Height 170.18 cm Mindi Dasilva [facility] Work Phone: 10-14-2013 09:08-0400 Pulse (Heart Rate) 74 /min Mindi Dasilva [facility] Work Phone: Comment on above: Pattern: Regular 10-14-2013 09:08-0400 Pulse Oximetry 97 % Mindi Dasilva [facility] Work Phone: Comment on above: Room air 10-14-2013 09:08-0400 Weight 84.82 kg Mindi Paredes [facility] Work Phone: 01-15-2013 11:42-0400 BMI (Body Mass Index) 28.72 kg/m2 Mindi Dasilva [facility] Work Phone: 01-15-2013 11:42-0400 Body weight 83.18 kg Mindi Dasilva [facility] Work Phone: 01-15-2013 11:42-0400 BP Diastolic 98 mm[Hg] Mindi Dasilva [facility] Work Phone: Comment on above: Patient Position: Sitting; Cuff Location : Left Arm; Cuff Size: Large 01-15-2013 11:42-0400 BP Systolic 132 mm[Hg] Mindi Dasilva [facility] Work Phone: Comment on above: Patient Position: Sitting; Cuff Location : Left Arm; Cuff Size: Large 01-15-2013 11:42-0400 BSA (Body Surface Area) 1.95 m2 Mindi Dasilva [facility] Work Phone: 01-15-2013 11:42-0400 Height 170.18 cm Mindi Dasilva [facility] Work Phone: 01-15-2013 11:42-0400 Pulse (Heart Rate) 64 /min Mindi Dasilva [facility] Work Phone: Comment on above: Pattern: Regular 01-15-2013 11:42-0400 Respiratory Rate 18 /min Mindi Dasilva [facility] Work Phone: Comment on above: Pattern: Unlabored 01-15-2013 11:42-0400 Weight 83.18 kg Mindi Dasilva [facility] Work Phone: 10-11-2011 07:43-0400 BMI (Body Mass Index) 28.99 kg/m2 Mindi Dasilva [facility] Work Phone: 10-11-2011 07:43-0400 Body weight 83.97 kg Mindi Dasilva [facility] Work Phone: 10-11-2011 07:43-0400 BP Diastolic 82 mm[Hg] Mindi Dasilva [facility] Work Phone: Comment on above: Patient Position: Sitting; Cuff Location : Left Arm; Cuff Size: Large 10-11-2011 07:43-0400 BP Systolic 138 mm[Hg] Mindi Dasilva [facility] Work Phone: Comment on above: Patient Position: Sitting; Cuff Location : Left Arm; Cuff Size: Large 10-11-2011 07:43-0400 BSA (Body Surface Area) 1.96 m2 Mindi Dasilva [facility] Work Phone: 10-11-2011 07:43-0400 Height 170.18 cm Mindi Dasilva [facility] Work Phone: 10-11-2011 07:43-0400 Pulse (Heart Rate) 68 /min Mindi Dasilva [facility] Work Phone: Comment on above: Pattern: Regular 10-11-2011 07:43-0400 Respiratory Rate 18 /min Mindi Dasilva [facility] Internal Medicine Work Phone: Comment on above: Pattern: Unlabored 10-11-2011 07:43-0400 Weight 83.97 kg Mindi Dasilva [facility] Internal Medicine Work Phone: 08-29-2011 16:06-0400 BMI (Body Mass Index) 28.85 kg/m2 Mindi Dasilva [facility] Internal Medicine Work Phone: 08-29-2011 16:06-0400 Body weight 83.55 kg Mindi Dasilva [facility] Internal Medicine Work Phone: 08-29-2011 16:06-0400 BP Diastolic 98 mm[Hg] Mindi Dasilva [facility] Internal Medicine Work Phone: Comment on above: Patient Position: Sitting; Cuff Location : Left Arm; Cuff Size: Large 08-29-2011 16:06-0400 BP Systolic 140 mm[Hg] Mindi Dasilva [facility] Internal Medicine Work Phone: Comment on above: Patient Position: Sitting; Cuff Location : Left Arm; Cuff Size: Large 08-29-2011 16:06-0400 BSA (Body Surface Area) 1.95 m2 Mindi Dasilva [facility] Internal Medicine Work Phone: 08-29-2011 16:06-0400 Height 170.18 cm Mindi Dasilva [facility] Medicine Work Phone: 08-29-2011 16:06-0400 Pulse (Heart Rate) 60 /min Mindi Dasilva [facility] Internal Medicine Work Phone: Comment on above: Pattern: Regular 08-29-2011 16:06-0400 Respiratory Rate 16 /min Mindi Dasilva [facility] Internal Medicine Work Phone: Comment on above: Pattern: Unlabored 08-29-2011 16:06-0400 Weight 83.55 kg Mindi Dasilva [facility] Internal Medicine Work Phone: 08-01-2011 10:51-0400 BMI (Body Mass Index) 29.13 kg/m2 Mindi Dasilva [facility] Internal Medicine Work Phone: 08-01-2011 10:51-0400 Body Temperature 99 [degF] Mindi Dasilva [facility] Internal Medicine Work Phone: 08-01-2011 10:51-0400 Body weight 84.37 kg Mindi Dasilva [facility] Internal Medicine Work Phone: 08-01-2011 10:51-0400 BP Diastolic 90 mm[Hg] Mindi Dasilva [facility] Internal Medicine Work Phone: Comment on above: Patient Position: Sitting; Cuff Location : Left Arm; Cuff Size: Standard 08-01-2011 10:51-0400 BP Systolic 150 mm[Hg] Mindi Dasilva [facility] Internal Medicine Work Phone: Comment on above: Patient Position: Sitting; Cuff Location : Left Arm; Cuff Size: Standard 08-01-2011 10:51-0400 BSA (Body Surface Area) 1.96 m2 Mindi Dasilva [facility] Internal Medicine Work Phone: 08-01-2011 10:51-0400 Height 170.18 cm Mindi Dasilva [facility] Internal Medicine Work Phone: 08-01-2011 10:51-0400 Pulse (Heart Rate) 68 /min Mindi Dasilva [facility] Internal Medicine Work Phone: Comment on above: Pattern: Regular 08-01-2011 10:51-0400 Respiratory Rate 16 /min Mindi Dasilva [facility] Internal Medicine Work Phone: Comment on above: Pattern: Unlabored 08-01-2011 10:51-0400 Weight 84.37 kg Mindi Paredes Internal Medicine Work Phone: 11-10-2010 13:31-0400 BMI (Body Mass Index) 29.2 kg/m2 Mindi Paredes Internal Medicine Work Phone: 11-10-2010 13:31-0400 Body Temperature 98.6 [degF] Mindi Dasilva [facility] Internal Medicine Work Phone: Comment on above: Method: Oral 11-10-2010 13:31-0400 Body weight 84.57 kg Mindi Paredes Internal Medicine Work Phone: 11-10-2010 13:31-0400 BP Diastolic 86 mm[Hg] Mindi Dasilva [facility] Internal Medicine Work Phone: Comment on above: Patient Position: Sitting; Cuff Location : Right Arm; Cuff Size: Standard 11-10-2010 13:31-0400 BP Systolic 122 mm[Hg] Mindi Dasilva [facility] Internal Medicine Work Phone: Comment on above: Patient Position: Sitting; Cuff Location : Right Arm; Cuff Size: Standard 11-10-2010 13:31-0400 BSA (Body Surface Area) 1.96 m2 Mindi Dasilva [facility] Internal Medicine Work Phone: 11-10-2010 13:31-0400 Height 170.18 cm Mindi Paredes Internal Medicine Work Phone: 11-10-2010 13:31-0400 Pulse (Heart Rate) 80 /min Mindi Dasilva [facility] Internal Medicine Work Phone: Comment on above: Pattern: Regular 11-10-2010 13:31-0400 Respiratory Rate 20 /min Mindi Dasilva [facility] Internal Medicine Work Phone: Comment on above: Pattern: Unlabored 11-10-2010 13:31-0400 Weight 84.57 kg Mindi Paredes Internal Medicine Work Phone: 10-10-2010 09:23-0400 BMI (Body Mass Index) 28.87 kg/m2 Mindi Dasilva [facility] Internal Medicine Work Phone: 10-10-2010 09:23-0400 Body weight 83.6 kg Mindi Dasilva [facility] Internal Medicine Work Phone: 10-10-2010 09:23-0400 BP Diastolic 90 mm[Hg] Mindi Dasilva [facility] Internal Medicine Work Phone: Comment on above: Patient Position: Sitting; Cuff Location : Left Arm; Cuff Size: Large 10-10-2010 09:23-0400 BP Systolic 128 mm[Hg] Mindi Dasilva [facility] Internal Medicine Work Phone: Comment on above: Patient Position: Sitting; Cuff Location : Left Arm; Cuff Size: Large 10-10-2010 09:23-0400 BSA (Body Surface Area) 1.95 m2 Mindi Dasilva [facility] Internal Medicine Work Phone: 10-10-2010 09:23-0400 Height 170.18 cm Mindi Dasilva [facility] Internal Medicine Work Phone: 10-10-2010 09:23-0400 Pulse (Heart Rate) 72 /min Mindi Dasilva [facility] Internal Medicine Work Phone: Comment on above: Pattern: Regular 10-10-2010 09:23-0400 Respiratory Rate 18 /min Mindi Dasilva [facility] Internal Medicine Work Phone: Comment on above: Pattern: Unlabored 10-10-2010 09:23-0400 Weight 83.6 kg Mindi Dasilva [facility] Internal Medicine Work Phone: 04-21-2010 14:07-0500 Body Temperature 97.9 [degF] Mindi Dasilva [facility] Internal Medicine Work Phone: Comment on above: Method: Oral 04-21-2010 14:07-0500 Body weight 85.39 kg Mindi Dasilva [facility] Internal Medicine Work Phone: 04-21-2010 14:07-0500 BP Diastolic 78 mm[Hg] Mindi Dasilva [facility] Internal Medicine Work Phone: Comment on [...] 13:28-0400 BP Diastolic 68 mm[Hg] Mindi Dasilva [facility] Internal Medicine Work Phone: Comment on above: Patient Position: Sitting; Cuff Location : Left Arm; Cuff Size: Standard 09-19-2009 13:28-0400 BP Systolic 120 mm[Hg] Mindi Dasilva [facility] Internal Medicine Work Phone: Comment on above: Patient Position: Sitting; Cuff Location : Left Arm; Cuff Size: Standard 09-19-2009 13:28-0400 Pulse (Heart Rate) 70 /min Mindi Dasilva [facility] Internal Medicine Work Phone: Comment on above: Pattern: Regular 09-19-2009 13:28-0400 Respiratory Rate 18 /min Mindi Dasilva [facility] Internal Medicine Work Phone: Comment on above: Pattern: Unlabored 09-19-2009 13:28-0400 Weight 85.39 kg Mindi Dasilva [facility] Medicine Work Phone: 09-09-2009 12:18-0400 BMI (Body Mass Index) 40.47 kg/m2 Mindi Dasilva [facility] Medicine Work Phone: 09-09-2009 12:18-0400 Body weight 84.82 kg Mindi Dasilva [facility] Medicine Work Phone: 09-09-2009 12:18-0400 BP Diastolic 84 mm[Hg] Mindi Dasilva [facility] Internal Medicine Work Phone: Comment on above: Patient Position: Sitting; Cuff Location : Left Arm; Cuff Size: Large 09-09-2009 12:18-0400 BP Systolic 120 mm[Hg] Mindi Dasilva [facility] Internal Medicine Work Phone: Comment on [...] 12:18-0400 Respiratory Rate 20 /min Mindi Dasilva [facility] Medicine Work Phone: Comment on above: Pattern: Unlabored 09-09-2009 12:18-0400 Weight 84.82 kg Mindi Dasilva [facility] Medicine Work Phone: 01-28-2009 10:33-0400 Body Temperature 100.4 [degF] Mindi Dasilva [facility] Medicine Work Phone: Comment on above: Method: Oral 01-28-2009 10:33-0400 Body weight 0 kg Mindi Dasilva [facility] Medicine Work Phone: 01-28-2009 10:33-0400 BP Diastolic 78 mm[Hg] Mindi Dasilva [facility] Internal Medicine Work Phone: Comment on above: Patient Position: Sitting; Cuff Location : Left Arm; Cuff Size: Standard 01-28-2009 10:33-0400 BP Systolic 118 mm[Hg] Mindi Dasilva [facility] Internal Medicine Work Phone: Comment on above: Patient Position: Sitting; Cuff Location : Left Arm; Cuff Size: Standard 01-28-2009 10:33-0400 Head Circumference 0 cm Mindi Dasilva [facility] Work Phone: 01-28-2009 10:33-0400 Height 0 cm Mindi Dasilva [facility] Work Phone: 01-28-2009 10:33-0400 Pulse [...] (Body Mass Index) 30.71 kg/m2 Mindi Dasilva [facility] Work Phone: 09-04-2007 09:43-0400 Body weight 86.3 kg Mindi Dasilva [facility] Medicine Work Phone: 09-04-2007 09:43-0400 BP Diastolic 88 mm[Hg] Mindi Dasilva [facility] Medicine Work Phone: Comment on above: Patient Position: Sitting; Cuff Location : Left Arm; Cuff Size: Standard 09-04-2007 09:43-0400 BP Systolic 138 mm[Hg] Mindi Dasilva [facility] Medicine Work Phone: Comment on above: Patient Position: Sitting; Cuff Location : Left Arm; Cuff Size: Standard 09-04-2007 09:43-0400 BSA (Body Surface Area) 1.96 m2 Mindi Dasilva [facility] Medicine Work Phone: 09-04-2007 09:43-0400 Head Circumference 0 cm Mindi Dasilva [facility] Medicine Work Phone: 09-04-2007 09:43-0400 Height 167.64 cm Mindi Dasilva [facility] Work Phone: 09-04-2007 09:43-0400 Pulse (Heart Rate) 72 /min Mindi Dasilva [facility] Medicine Work Phone: Comment on above: Pattern: Regular 09-04-2007 09:43-0400 Respiratory Rate 20 /min Mindi Dasilva [facility] Work Phone: Comment on above: Pattern: Unlabored 09-04-2007 09:43-0400 Weight 86.3 kg Mindi Dasilva [facility] Work Phone: 03-07-2007 09:42-0500 BMI (Body Mass Index) 30.4 kg/m2 Mindi Dasilva [facility] Work Phone: 03-07-2007 09:42-0500 Body weight 85.45 kg Mindi Dasilva [facility] Work Phone: 03-07-2007 09:42-0500 BP Diastolic 70 mm[Hg] Mindi Dasilva [facility] Medicine Work Phone: Comment on above: Patient Position: Sitting; Cuff Location : Left Arm; Cuff Size: Standard 03-07-2007 09:42-0500 BP Systolic 118 mm[Hg] Mindi Dasilva [facility] Medicine Work Phone: Comment on above: Patient Position: Sitting; Cuff Location : Left Arm; Cuff Size: Standard 03-07-2007 09:42-0500 BSA (Body Surface Area) 1.95 m2 Mindi Dasilva [facility] Medicine Work Phone: 03-07-2007 09:42-0500 Head Circumference 0 cm Mindi Dasilva [facility] Medicine Work Phone: 03-07-2007 09:42-0500 Height 167.64 cm Mindi Dasilva [facility] Medicine Work Phone: 03-07-2007 09:42-0500 Pulse (Heart Rate) 64 /min Mindi Dasilva [facility] Medicine Work Phone: Comment on above: Pattern: Regular 03-07-2007 09:42-0500 Respiratory Rate 16 /min Mindi Dasilva [facility] Work Phone: Comment on above: Pattern: Unlabored 03-07-2007 09:42-0500 Weight 85.45 kg Mindi Dasilva [facility] Work Phone: 09-04-2006 09:20-0400 BMI (Body Mass Index) 30.51 kg/m2 Mindi Dasilva [facility] Work Phone: 09-04-2006 09:20-0400 Body Temperature 98.3 [degF] Mindi Dasilva [facility] Medicine Work Phone: Comment on above: Method: Oral 09-04-2006 09:20-0400 Body weight 85.73 kg Mindi Dasilva [facility] Work Phone: 09-04-2006 09:20-0400 BP Diastolic 76 mm[Hg] Mindi Dasilva [facility] Work Phone: Comment on above: Patient Position: Sitting; Cuff Location : Left Arm; Cuff Size: Standard 09-04-2006 09:20-0400 BP Systolic 122 mm[Hg] Mindi Dasilva [facility] Work Phone: Comment on above: Patient Position: Sitting; Cuff Location : Left Arm; Cuff Size: Standard 09-04-2006 09:20-0400 BSA (Body Surface Area) 1.95 m2 Mindi Dasilva [facility] Work Phone: 09-04-2006 09:20-0400 Head Circumference 0 cm Mindi Dasilva [facility] Work Phone: 09-04-2006 09:20-0400 Height 167.64 cm Mindi Dasilva [facility] Work Phone: 09-04-2006 09:20-0400 Pulse (Heart Rate) 70 /min Mindi Dasilva [facility] Medicine Work Phone: Comment on above: Pattern: Regular 09-04-2006 09:20-0400 Respiratory Rate 17 /min Mindi Dasilva [facility] Medicine Work Phone: Comment on above: Pattern: Unlabored 09-04-2006 09:20-0400 Weight 85.73 kg Mindi Dasilva [facility] Medicine Work Phone: 07-18-2006 09:30-0400 BMI (Body Mass Index) 30.51 kg/m2 Mindi Dasilva [facility] Medicine Work Phone: 07-18-2006 09:30-0400 Body Temperature 98.4 [degF] Mindi Dasivla [facility] Work Phone: Comment on above: Method: Undefined 07-18-2006 09:30-0400 Body weight 85.73 kg Mindi Dasilva [facility] Medicine Work Phone: 07-18-2006 09:30-0400 BP Diastolic 74 mm[Hg] Mindi Dasilva [facility] Medicine Work Phone: Comment on above: Patient Position: Sitting; Cuff Location : Left Arm; Cuff Size: Standard 07-18-2006 09:30-0400 BP Systolic 126 mm[Hg] [facility]: Comment on above: Patient Position: Sitting; Cuff Location : Left Arm; Cuff Size: Standard 07-18-2006 09:30-0400 BSA (Body Surface Area) 1.95 m2 Mindi Dasilva [facility] Work Phone: 07-18-2006 09:30-0400 Head Circumference 0 [facility]: 07-18-2006 09:30-0400 Height 167.64 cm [facility]: 07-18-2006 09:30-0400 Weight 85.73 [facility] Work Phone: 06-27-2006 10:27-0400 BMI (Body Mass Index) 30.51 kg/m2 [facility] Work Phone: 06-27-2006 10:27-0400 Body Temperature 98.1 [degF] [facility]: Comment on above: Method: Undefined 06-27-2006 10:27-0400 Body weight 85.73 [facility] Work [facility]: 06-27-2006 10:27-0400 BP Diastolic 64 mm[Hg] [facility]: Comment on above: Patient Position: Undefined; Cuff Locati on: Undefined; Cuff Size: Undefined 06-27-2006 10:27-0400 BP Systolic 132 mm[Hg] [facility]: Comment on above: Patient Position: Undefined; Cuff Locati on: Undefined; Cuff Size: Undefined 06-27-2006 10:27-0400 BSA (Body Surface Area) 1.95 m2 [facility] Work Phone: 06-27-2006 10:27-0400 Head Circumference 0 cm [facility] Work Phone: 06-27-2006 10:27-0400 Height 167.64 cm Mindi Dasilva [facility] Medicine Work Phone: 06-27-2006 10:040 Pulse (Heart Rate) 68 /min Mindi Dasilva [facility] Work Phone: Comment on above: Pattern: Regular 06-27-2006 10: Respiratory Rate 16 /min Mindi Dasilva [facility] Medicine Work Phone: Comment on above: Pattern: Undefined 06-27-2006 10: Weight 85.73 kg Mindi Dasilva [facility] Internal Medicine Work Phone: Encounters Encounter Date Encounter Type Care Provider Facility Start: 11-19-2024 ambulatory Paulo Salazar Facility :[facility] Start: 11-13-2024 End: 11-13-2024 [facility] Start: 11-10-2024 End: 11-10-2024 ambulatory JACINTA RIVAS Facility:[facility] Start: 11-09-2024 End: 11-09-2024 ambulatory MILAGROS BROWN Facility:[id number] Start: 11-09-2024 End: 11-09-2024 ambulatory Treatment Rm 15 Adrian [facility] Work Phone: Hematology/Oncology Comment on above: Malignant neoplasm o f left breast in female, estrogen receptor positive, unspecified site of breast (HCC) (Primary Dx); 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); Malignant neoplasm of lower-outer quadrant of left breast of female, estrogen receptor positive (HCC); 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 lymph node (HCC) Start: 11-06-2024 End: 11-06-2024 Telephone encounter Daisy Titus APRN.SECURITY GUARD DISPATCHER Work Phone: Endocrinology Comment on above: Insurance Authorizat ion (Approval - tirzepatide (MOUNJARO) 2.5 mg/0.5 mL pen injector [[employer]]) Start: 11-06-2024 End: 11-06-2024 ambulatory Noe Jackson TILT TRAY DRIVER Work Phone: [facility] [place] Comment on above: Lymphedema of left a rm (Primary Dx) Start: 11-05-2024 End: 11-05-2024 Refill Daisy Titus APRN.SECURITY GUARD DISPATCHER Work Phone: Endocrinology Start: 11-04-2024 End: 11-04-2024 ambulatory Noe Harig TILT TRAY DRIVER Work Phone: [employer] [facility] [place] Comment on above: Lymphedema of left a rm (Primary Dx) Start: 11-02-2024 End: 11-02-2024 Patient encounter procedure Paulo Salazar [place] [facility] [facility] Work Phone: Start: 11-02-2024 End: 11-02-[address] Jacinta Rivas MD Work Phone: -[employer] [facility] Start: 10-30-2024 End: 10-30-2024 Office outpatient visit [...] Start: 10-30-2024 End: 10-30-2024 ambulatory Noe Harig TILT TRAY DRIVER Work Phone: [employer] [place] Comment on above: Lymphedema of left a rm (Primary Dx) Start: 10-28-2024 End: 10-28-2024 ambulatory Noe Harig TILT TRAY DRIVER Work Phone: [employer] [place] Comment on above: Lymphedema of left a rm (Primary Dx) Start: 10-27-2024 End: 10-27-2024 ambulatory JACINTA RIVAS Facility:[facility] Start: 10-26-2024 End: 10-26-2024 Patient encounter procedure Lisbet Pizano APRN.SECURITY GUARD DISPATCHER Work Phone: Internal Medicine [place] Comment on above: Lymphedema of left a rm (Primary Dx); Urinary tract infection with hematuria, site unspecified; Renal insufficiency Start: 10-26-2024 End: 10-26-2024 ambulatory JACINTA North MARCORICRADO Facility:[facility] Start: 10-26-2024 ambulatory SERENA SANDHUEstelle Facility:[facility] Start: 10-26-2024 End: 10-26-2024 Subsequent hospital visit by physician [facility] [place] [facility] Comment on above: Malignant neoplasm o f left breast in female, estrogen receptor positive, unspecified site of breast (HCC) [C50.912, Z17.0] Start: 10-22-2024 End: 10-22-2024 ambulatory Noe Jackson TILT TRAY DRIVER Work Phone: [employer] [place] Comment on above: Lymphedema of left a rm (Primary Dx) Start: 10-21-2024 End: 10-21-2024 ambulatory Noe Jackson TILT TRAY DRIVER Work Phone: [employer] [place] Comment on above: Lymphedema of left a rm (Primary Dx) Start: 10-15-2024 End: 10-15-2024 Patient encounter procedure Mino Beard 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 Work Phone: Plastic Surgery Comment on above: History of breast re construction (Primary Dx); History of breast cancer; Lymphedema; Cellulitis of left upper limb Start: 10-15-2024 End: 10-15-2024 ambulatory JACINTA RIVAS Facility:[facility] Start: 10-15-2024 End: 10-15-2024 ambulatory Noe Jackson TILT TRAY DRIVER Work Phone: [employer] [place] Comment on above: Lymphedema of left a rm (Primary Dx) Start: 10-14-2024 End: 10-14-2024 Patient encounter procedure Daisy Titus 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 Work Phone: Endocrinology Comment on above: Diabetes mellitus tr eated with insulin (HCC) (Primary Dx) Start: 10-14-2024 End: 10-14-2024 ambulatory DAISY TITUS Facility:[facility] Start: 10-13-2024 End: 10-13-2024 Patient encounter procedure Lisbet Rona 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 Work Phone: Internal Medicine [place] Comment on above: Urinary tract infect ion with hematuria, site unspecified (Primary Dx); Lymphedema of left arm; Cellulitis of left upper extremity Start: 10-13-2024 End: 10-13-2024 ambulatory LISBET PIZANO Facility:[facility] Start: 10-13-2024 End: 10-13-2024 ambulatory Noe Jackson TILT TRAY DRIVER Work Phone: [facility] [place] Comment on above: Lymphedema of left a rm (Primary Dx) Start: 10-12-2024 End: 10-13-2024 Telephone encounter Jacinta Rivas MD Work Phone: Internal Medicine [place] Comment on above: Results Start: 10-07-2024 End: 10-07-2024 ambulatory JACINTA RIVAS Facility:[facility] Start: 10-07-2024 End: 10-07-2024 Patient encounter procedure Tatianna Crook [facility] Work Phone: [facility] Comment on above: Type 2 diabetes yolanda itus without complication, unspecified whether long term care administrator insulin use (HCC) (Primary Dx) Start: 10-07-2024 End: 10-07-2024 Telemedicine consultation with patient Tatianna Crook [facility] Work Phone: [facility] Start: 10-07-2024 End: 10-07-2024 ambulatory CATHY BURR Facility:[facility] Start: 10-07-2024 End: 10-07-2024 ambulatory Milagros Brown PT [facility] [place] Comment on above: Lymphedema of left a rm (Primary Dx) Start: 10-05-2024 End: 10-06-2024 Telephone encounter Micki Marcelino MD Work Phone: Plastic Surgery Start: 09-25-2024 End: 09-25-2024 Telephone encounter Cathy Burr APRN.LOGISTICS TEAM LEADER Work Phone: Internal Medicine [place] Comment on above: Results Start: 09-24-2024 End: 09-28-2024 Telephone encounter Serena Carrasco DO Work Phone: Hematology/Oncology Comment on above: Orders; Appointment Start: 09-24-2024 End: 09-24-2024 ambulatory MICKI BUTLER Facility:[id number] Start: 09-24-2024 End: 09-24-2024 ambulatory Noe Jackson TILT TRAY DRIVER Work Phone: [facility] Comment on above: Lymphedema of left a rm (Primary Dx) Start: 09-23-2024 End: 09-23-2024 Subsequent hospital visit by physician [facility] Comment on above: Acute renal insuffic iency [N28.9] Start: 09-23-2024 End: 10-15-2024 ambulatory NEL DAY Facility:[facility] Comment on above: IV drip Start: 09-23-2024 End: 09-24-2024 Follow-up encounter Nel Day APRN.CNP Work Phone: Internal Medicine [place] Comment on above: Results Start: 09-22-2024 End: 09-22-2024 ambulatory NEL DAY Facility:[facility] Start: 09-22-2024 End: 09-22-2024 Office outpatient visit 15 minutes Nel Day APRN.SECURITY GUARD DISPATCHER Work Phone: Internal Medicine [place] Comment on above: Urinary frequency (P rimary Dx); Renal insufficiency; Urinary tract infection with hematuria, site unspecified; Glucosuria; Type 2 diabetes mellitus without complication, with long-term current use of insulin (HCC) Start: 09-22-2024 End: 09-22-2024 Telephone encounter Jacinta Rivas MD Work Phone: Internal Medicine [place] Comment on above: Check urine for UTI Start: 09-22-2024 End: 09-22-2024 ambulatory Noe Harig TILT TRAY DRIVER Work Phone: [facility] [employer] [facility] Comment on above: Lymphedema of left a rm (Primary Dx) Start: 09-11-2024 End: 09-11-2024 ambulatory Noe Harig TILT TRAY DRIVER Work Phone: [facility] [place] Comment on above: Lymphedema of left a rm (Primary Dx) Lymphedema (Primary Dx); History of breast cancer; S/P breast reconstruction Start: 09-10-2024 End: 09-10-2024 Follow-up encounter Cathy Burr APRN.LOGISTICS TEAM LEADER Work Phone: Internal Medicine [place] Comment on above: Results; urine cultu re Start: 09-08-2024 End: 09-08-2024 ambulatory [facility] Facility:[facility] Start: 09-08-2024 End: 09-08-2024 Patient encounter procedure Tatianna Crook [facility] Work Phone: [facility] Comment on above: Type 2 diabetes yolanda itus without complication, unspecified whether senior living insulin use (HCC) (Primary Dx) Start: 09-08-2024 End: 09-08-2024 Telemedicine consultation with patient Tatianna Crook [facility] Work Phone: [facility] Start: 09-07-2024 End: 09-07-2024 ambulatory [facility] Facility[facility] Start: 09-07-2024 End: 09-07-2024 Office outpatient visit 15 minutes Cathy Burr APRN.LOGISTICS TEAM LEADER Work Phone: Internal Medicine [place] Comment on above: UTI symptoms (Primar y Dx); Complicated UTI (urinary tract infection) Start: 09-03-2024 End: 09-03-2024 Chart abstracting Micki Marcelino MD Work Phone: Plastic Surgery Comment on above: PHOTOS TAKEN Start: 09-03-2024 End: 09-03-2024 Patient encounter procedure Micki Marcelino MD Work Phone: Plastic Surgery Comment on above: Lymphedema (Primary Dx) Start: 09-03-2024 End: 09-03-2024 ambulatory MICKI MARCELINO Facility:[facility] Start: 09-01-2024 End: 09-02-2024 Follow-up encounter Serena Carrasco DO Work Phone: Hematology/Oncology Start: 09-01-2024 End: 09-01-2024 [facility] Start: 08-27-2024 End: 08-27-2024 ambulatory Milagros [facility] Physical [facility]ra Juan Carlos Posada Comment on above: Lymphedema of left a rm (Primary Dx); History of breast cancer; S/P breast reconstruction; Seroma of breast Start: 08-11-2024 End: 08-11-2024 [facility] Start: 08-11-2024 End: 08-11-2024 Patient encounter procedure Tatianna Taborlouis [facility] Work Phone: [facility] Comment on above: Type 2 diabetes yolanda itus without complication, unspecified whether long term care administrator insulin use (HCC) (Primary Dx) Start: 08-11-2024 End: 08-11-2024 Telemedicine consultation with patient Tatianna Crook [facility] Work Phone: [facility] Start: 08-10-2024 End: 08-10-2024 ambulatory Daisy Titus 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 Work Phone: Endocrinology Comment on above: Droplet pen needles Start: 08-04-2024 End: 08-04-2024 [facility] Start: 08-03-2024 End: 08-03-[address] Andrea Peace MD -Laboratory Work Phone: Start: 08-03-2024 End: 08-03-2024 Patient encounter procedure Micki Butler 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 Work Phone: Plastic Surgery Comment on above: Post-operative state (Primary Dx); History of breast cancer; S/P breast reconstruction; Seroma of breast Start: 08-03-2024 End: 08-03-2024 [facility] Start: 08-03-2024 End: 08-03-2024 [facility] Start: 07-16-2024 End: 09-15-2024 Follow-up encounter Cathy Burr 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 Work Phone: Internal Medicine [place] Start: 07-15-2024 End: 07-15-2024 Patient encounter procedure Micki Butler 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 Work Phone: [facility] Comment on above: Seroma of breast (Pr imary Dx); Post-operative state Start: 07-15-2024 End: 07-16-2024 [facility] Facility:[facility] Start: 07-14-2024 End: 07-14-2024 [facility] Facility:[facility] Start: 07-14-2024 End: 07-14-2024 Patient encounter procedure Tatianna Crook [facility] Work Phone: [facility] Comment on above: Type 2 diabetes yolanda itus without complication, unspecified whether senior living insulin use (HCC) (Primary Dx) Start: 07-14-2024 End: 07-14-2024 Telemedicine consultation with patient Tatianna Crook [facility] Work Phone: [facility] Start: 07-10-2024 End: 07-13-2024 Telephone encounter Serena Carrasco DO Work Phone: Hematology/Oncology Comment on above: Results Start: 07-09-2024 End: 07-09-2024 [facility] Facility:[facility] Start: 07-09-2024 End: 07-09-2024 Office outpatient visit [...] to medical condition Start: 07-08-2024 End: 07-08-2024 [facility] Facility:[facility] Start: 07-08-2024 End: 07-08-2024 Subsequent hospital visit by physician [facility] Work Phone: Radiology Comment on above: Thyroid nodule [E04. 1] Start: 07-07-2024 End: 07-07-2024 Telephone encounter Serena Carrasco DO Work Phone: Hematology/Oncology Comment on above: Orders Start: 07-06-2024 End: 07-06-2024 Patient encounter procedure Micki Butler APRN.SECURITY GUARD DISPATCHER Work Phone: Plastic Surgery Comment on above: Seroma of breast (Pr imary Dx); Post-operative state Start: 07-06-2024 End: 07-06-2024 [facility] Start: 07-02-2024 End: 07-06-2024 ambulatory Michell David Work Phone: Hematology/Oncology Comment on above: Results on PET Scan Start: 06-30-2024 ambulatory SERENA CARRASCO Facility:[facility] Start: 06-30-2024 End: 06-30-2024 Subsequent hospital visit by physician Injection [facility] [place] [facility] CT Comment on above: Malignant neoplasm o f left breast in female, estrogen receptor positive, unspecified site of breast (HCC) [C50.912, Z17.0] Start: 06-26-2024 End: 06-26-2024 Refill Cathy Burr APRN.LOGISTICS TEAM LEADER Work Phone: Internal Medicine [place] Comment on above: Med Change Request Start: 06-25-2024 End: 06-25-2024 [facility] Start: 06-25-2024 End: 06-25-2024 Patient encounter procedure Micki Marcelino MD Work Phone: Plastic Surgery Comment on above: Post-operative state (Primary Dx); History of breast cancer; S/P breast reconstruction; Seroma of breast Start: 06-23-2024 End: 08-24-2024 Follow-up encounter Cathy Burr APRN.LOGISTICS TEAM LEADER Work Phone: Internal Medicine [place] Start: 06-16-2024 End: 06-16-2024 [facility] Start: 06-16-2024 End: 06-16-2024 Patient encounter procedure Tatianna Crook [facility] Work Phone: [facility] Comment on above: Type 2 diabetes yolanda itus without complication, unspecified whether senior living insulin use (HCC) (Primary Dx); Medication management Start: 06-16-2024 End: 06-16-2024 Telemedicine consultation with patient Tatianna Crook [facility] Work Phone: [facility] Start: 06-11-2024 End: 06-11-2024 Refill Serena Carrasco DO Work Phone: Hematology/Oncology Comment on above: Refill Request Post-operative state (Primary Dx); S/P breast reconstruction Start: 06-09-2024 End: 06-22-2024 Follow-up encounter Cathy Burr APRN.CNS Work Phone: Internal Medicine [place] Start: 06-05-2024 End: 06-05-2024 ambulatory [facility] Facility:[facility] Start: 06-05-2024 End: 06-05-2024 Office outpatient visit 25 minutes Cathy Burr APRN.CNS Work Phone: Internal Medicine [place] Comment on above: Primary hypertension (Primary Dx) Start: 06-04-2024 End: 06-05-2024 ambulatory Tatianna Crook [facility] Work Phone: [facility] Start: 06-04-2024 End: 06-05-2024 Patient encounter procedure Mino Beard APRN.SECURITY GUARD DISPATCHER Work Phone: Plastic Surgery Comment on above: Post-operative state (Primary Dx); S/P breast reconstruction; Seroma of breast HBP meds Start: 06-03-2024 End: 06-03-2024 ambulatory [facility] Facility:[facility] Start: 05-29-2024 End: 05-29-2024 ambulatory [facility] Facility:[facility] Start: 05-29-2024 End: 05-29-2024 Patient encounter procedure Mino Beard APRN.SECURITY GUARD DISPATCHER Work Phone: Plastic Surgery Comment on above: Post-operative state (Primary Dx); S/P breast reconstruction; Encounter for change or removal of drains Start: 05-27-2024 End: 05-27-2024 ambulatory JACINTA RIVAS Facility:[facility] Start: 05-27-2024 End: 05-27-2024 Patient encounter procedure Eliz Bingham MD Work Phone: Breast Center Comment on above: Malignant neoplasm o f lower-outer quadrant of left breast of female, estrogen receptor positive (HCC) (Primary Dx); 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); Axillary pain, left Start: 05-26-2024 End: 05-26-2024 Telephone encounter Cathy Burr APRN.LOGISTICS TEAM LEADER Work Phone: Internal Medicine [place] Comment on above: Results Start: 05-26-2024 End: 07-15-2024 ambulatory Cathy Burr APRN.CNS Work Phone: Internal Medicine [place] Start: 05-26-2024 End: 05-26-2024 Office outpatient visit 25 minutes Cathy Burr APRN.LOGISTICS TEAM LEADER Work Phone: Internal Medicine [place] Comment on above: Primary hypertension (Primary Dx); Palpitations Start: 05-25-2024 End: 05-25-2024 ambulatory JACINTA RIVAS Facility:[facility] Start: 05-25-2024 End: 05-25-2024 Patient encounter procedure Mino Beard APRN.SECURITY GUARD DISPATCHER Work Phone: Plastic Surgery Comment on above: Post-operative state (Primary Dx); S/P breast reconstruction Start: 05-21-2024 End: 05-21-2024 ambulatory Jacinta Rivas MD Work Phone: Internal Medicine [place] Comment on above: Hypertension HBP medications Start: 05-21-2024 End: 05-21-2024 Patient encounter procedure Tatianna Crook [facility] Work Phone: [facility] Comment on above: HBP meds Start: 05-21-2024 End: 05-21-2024 Emergency department patient visit Rai Sterling Facility:[facility] Start: 05-20-2024 End: 05-20-2024 Refill Kassypamella Raman 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 Work Phone: Hematology/Oncology Comment on above: Refill Request Start: 05-20-2024 End: 05-21-2024 Refill Kassy Mossenter 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 Work Phone: Hematology/Oncology Comment on above: Refill Request Start: 05-19-2024 End: 05-19-2024 Telephone encounter Cayla Charles PA-C Work Phone: Breast Center Comment on above: Post Op Start: 05-18-2024 ambulatory JACINTA D TALAMPAS Facilit y:[facility] Start: 05-18-2024 End: 05-18-2024 Subsequent hospital visit by physician Micki Marcelino MD Work Phone: Ambulatory Surgery Comment on above: Malignant neoplasm o f lower-outer quadrant of left breast of female, estrogen receptor positive (HCC) [C50.512, Z17.0] Start: 05-13-2024 End: 05-13-2024 ambulatory Bobbi Orourke [facility] Physical Therapy Comment on above: Malignant neoplasm o f lower-outer quadrant of left breast of female, estrogen receptor positive (HCC) (Primary Dx); Lymphedema of left arm Start: 05-12-2024 End: 05-12-2024 Office outpatient visit 25 minutes Cathy Burr APRN.CNS Work Phone: Internal Medicine [place] Comment on above: Primary hypertension (Primary Dx); Acute cough; Sore throat Start: 05-12-2024 End: 05-12-2024 ambulatory JACINTA D TALAMPAS Facility:[facility] Start: 05-11-2024 End: 05-11-2024 ambulatory JACINTA D TALAMPAS Facility:[facility] Start: 05-11-2024 End: 05-11-2024 Nursing evaluation of patient and report Bianca Addison RN Breast Center Comment on above: Malignant neoplasm o f lower-outer quadrant of left breast of female, estrogen receptor positive (HCC) (Primary Dx); Encounter for education Start: 05-07-2024 End: 05-07-2024 ambulatory JACINTA D TALAMPAS Facility:[facility] Start: 05-07-2024 End: 05-07-2024 Office outpatient visit 25 minutes Cathy Burr JOSE LUIS Work Phone: Internal Medicine [place] Comment on above: Acute cough (Primary Dx); Primary hypertension; Sore throat Start: 05-06-2024 End: 05-06-2024 ambulatory Bobbi Orourke [facility] Physical Therapy Comment on above: Malignant neoplasm o f lower-outer quadrant of left breast of female, estrogen receptor positive (HCC) (Primary Dx); Lymphedema of left arm Start: 05-05-2024 End: 05-05-2024 ambulatory [facility] Facility:[facility] Start: 05-05-2024 End: 05-05-2024 Patient encounter procedure Tatianna Crook [facility] Work Phone: [facility] Comment on above: Type 2 diabetes yolanda itus without complication, unspecified whether long term care administrator insulin use (HCC) (Primary Dx) Start: 05-05-2024 End: 05-05-2024 Telemedicine consultation with patient Tatianna Crook [facility] Work Phone: [facility] Start: 05-04-2024 End: 05-04-2024 Telephone encounter Serena Carrasco DO Work Phone: Pre Anesthesia Comment on above: Preparations For Mei edson (Follow-up) Start: 05-04-2024 End: 05-04-2024 Admission to establishment [facility] Pre Anesthesia Start: 05-04-2024 End: 05-04-2024 ambulatory [facility]TA [facility] Facility:[facility] Start: 05-04-2024 End: 05-04-2024 Anesthesia consultation Pac [...] Encounter for other preprocedural examination JACINTA RIVAS [facility] Start: 05-04-2024 End: 05-04-2024 Preprocedural examination done [facility] Work Phone: Start: 04-28-2024 End: 04-28-2024 Subsequent hospital visit by physician [facility] [place] Work Phone: Radiology Comment on above: Acute cough [R05.1] Start: 04-28-2024 End: 04-28-2024 ambulatory JACINTA RIVAS Facility:[facility] Start: 04-28-2024 End: 04-28-2024 Patient encounter procedure Carla Forbes 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 Work Phone: [place] [facility] Comment on above: Acute cough (Primary Dx); URI, acute Start: 04-28-2024 End: 04-28-2024 Telephone encounter Jacinta Rivas MD Work Phone: Internal Medicine [place] Comment on above: 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 Start: 04-24-2024 End: 04-24-2024 ambulatory Bobbi Vanegas PT [place] [facility] Physical Therapy Comment on above: Lymphedema of [...] Start: 04-15-2024 End: 04-15-2024 ambulatory DAISY TITUS Facility:[facility] Start: 04-15-2024 End: 04-15-2024 Patient encounter procedure Daisy Titus 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 Work Phone: Endocrinology Comment on above: Diabetes mellitus tr eated with insulin (HCC) (Primary Dx) Start: 04-13-2024 End: 04-14-2024 Telephone encounter Cayla Charles PA-C Work Phone: Breast Center Comment on above: Schedule Surgery Results Start: 04-13-2024 End: 04-13-2024 ambulatory Treatment Rm 15 [facility] Work Phone: Hematology/Oncology Comment on above: Malignant neoplasm o f left breast in female, estrogen receptor positive, unspecified site of breast (HCC) (Primary Dx) Start: 04-13-2024 End: 04-13-2024 Subsequent hospital visit by physician [facility] Comment on [...] cardiomyopathy (HCC) Start: 04-06-2024 ambulatory SERENA CARRASCO Facility:[facility] Start: 04-06-2024 End: 04-06-2024 Subsequent hospital visit by physician [facility] [place] [facility] PET CT Comment on above: Malignant [...] hospital visit by physician [facility] Work Phone: Mammography Start: 03-25-2024 End: 03-25-2024 ambulatory JACINTA LARARICARDO Facility:[facility] Start: 03-25-2024 End: 03-25-2024 Patient encounter procedure [...] (HCC) (Primary Dx) Start: 03-24-2024 End: 03-24-2024 [facility] Start: 03-18-2024 End: 03-18-2024 [facility] Facility:[facility] Start: 03-18-2024 End: 03-18-2024 Office outpatient visit 25 minutes Jacinta Rivas MD Work Phone: Internal Medicine [place] Comment on above: Type 2 diabetes yolanda [...] Orders Only Eliz Bingham MD Work Phone: [facility] Comment on above: Malignant neoplasm o f lower-outer quadrant of left breast of female, estrogen receptor positive (HCC) (Primary Dx) 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; Appo intment Start: 02-26-2024 End: 02-26-2024 Telephone encounter Cayla Charles PA-C Work Phone: Breast Center Comment on above: Appointment Start: 02-25-2024 End: 02-25-2024 ambulatory JACINTA [place] [facility] Facility:[facility] Start: 02-25-2024 End: 02-25-2024 Patient encounter procedure Tatianna Crook [facility] Work Phone: [facility] Comment on above: Type 2 diabetes yolanda itus without complication, unspecified whether senior living insulin use (HCC) (Primary Dx) Start: 02-25-2024 End: 02-25-2024 Telemedicine consultation with patient Tatianna Crook [facility] Work Phone: [facility] Start: 02-24-2024 End: 02-26-2024 ambulatory Michell David Work Phone: Hematology/Oncology Comment on above: Recents scans Start: 02-18-2024 ambulatory JACINTAKey RIVAS Facilit y:[facility] Start: 02-18-2024 End: 02-18-2024 Subsequent hospital visit by physician [facility] (I-Stat/1.5t) [facility] Comment on above: Malignant neoplasm o f lower-outer quadrant of left breast of female, estrogen receptor positive (HCC) [C50.512, Z17.0] Start: 02-05-2024 End: 02-05-2024 ambulatory DAISY TITUS Facility:[facility] Start: 02-05-2024 End: 02-05-2024 Patient encounter procedure Daisy Titus 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 Work Phone: Endocrinology Comment on above: Poorly control type 2 diabetes mellitus (HCC) (Primary Dx) Start: 02-03-2024 End: 02-03-2024 Refill Kassy Raman 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 Work Phone: Hematology/Oncology Comment on above: Med [...] Start: 01-13-2024 End: 01-13-2024 ambulatory [facility] Facility[facility] Start: 01-13-2024 End: 01-13-2024 Subsequent hospital visit by physician Radio Velasquez [facility] Work Phone: Radiology Comment on above: Pain in right hip [M 25.551] Start: 01-07-2024 End: 01-07-2024 ambulatory [facility] Facility:[facility] Start: 01-07-2024 End: 01-07-2024 Patient encounter procedure Tatianna Crook [facility] Work Phone: [facility] Comment on above: Type 2 diabetes yolanda itus without complication, unspecified whether long term care administrator insulin use (HCC) (Primary Dx) Start: 01-07-2024 End: 01-07-2024 Telemedicine consultation with patient Tatianna Crook [facility] Work Phone: [facility] Start: 01-06-2024 End: 01-06-2024 Telephone encounter Bianca Addison RN Breast Center Comment on above: 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; 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 Start: 01-06-2024 End: 01-06-2024 Patient [...] on above: Appointment Start: 12-30-2023 ambulatory SERENA CARRASCO Facility:[facility] Start: 12-30-2023 End: 12-30-2023 Subsequent hospital visit by physician [facility] [place] [facility] PET CT Comment on above: 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) [C50.912, C79.2] Start: 12-27-2023 End: 12-30-2023 ambulatory Tatianna Croko [facility] Work Phone: [facility] Start: 12-27-2023 End: 12-30-2023 Patient encounter procedure Tatiannaezio Crook [facility] Work Phone: [facility] Comment on above: Script Start: 12-11-2023 End: 12-12-2023 Refill Serena Carrasco DO Work Phone: Hematology/Oncology Comment on above: Refill Request Start: 12-02-2023 End: 12-02-2023 ambulatory JACINTA RIVAS Facility:[facility] Start: 12-02-2023 End: 12-02-2023 Patient encounter procedure Tatianna Crook [facility] Work Phone: [facility] Comment on above: Type 2 diabetes yolanda itus without complication, unspecified whether long term care administrator insulin use (HCC) (Primary Dx); Medication management Start: 12-02-2023 End: 12-02-2023 Telemedicine consultation with patient Tatiannajane Crook [facility] Work Phone: [facility] Start: 11-22-2023 ambulatory Serena North O Work Phone: Hematology/Oncology Comment on above: Recent test Start: 11-19-2023 ambulatory SERENA CARRASCO Facility:[facility] Start: 11-19-2023 End: 11-19-2023 Subsequent hospital visit by physician [facility] Comment on above: Right upper quadrant pain [R10.11] Start: 11-13-2023 Telephone encounter Jacinta ambriz MD Work Phone: Internal Medicine [place] Comment on above: Order for Glucometer Start: [...] Lisbet govea APRN.CNP Work Phone: Internal Medicine [place] Comment on above: patient did follow u p urine sample Start: 10-30-2023 End: 10-30-2023 Patient encounter procedure Tatianna Crook [facility] Work Phone: [facility] Comment on above: Type 2 diabetes yolanda itus without complication, unspecified whether senior living insulin use (HCC) (Primary Dx) Start: 10-30-2023 End: 10-30-2023 Telemedicine consultation with patient Tatianna Crook [facility] Work Phone: [facility] Start: 10-27-2023 ambulatory Serena Slaughter Work Phone: Hematology/Oncology Comment on above: FYI Start: 10-23-2023 Telephone encounter Jacinta ambriz MD Work Phone: Internal Medicine [place] Comment on above: 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 Start: 10-23-2023 End: 10-23-2023 Patient encounter procedure Lisbet Pizano FELICIA.SECURITY GUARD DISPATCHER Work Phone: Internal Medicine [place] Comment on above: Acute cystitis with hematuria (Primary Dx) Start: 10-18-2023 End: 10-18-2023 Patient encounter procedure Severino Sauer 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 Work Phone: [facility] Comment on above: Neck strain, initial encounter (Primary Dx) Start: 10-08-2023 End: 10-08-2023 Patient encounter procedure Tatianna Panshobhacasio [facility] Work Phone: [facility] Comment on above: Type 2 diabetes yolanda itus without complication, unspecified whether senior living insulin use (HCC) (Primary Dx) Start: 10-08-2023 End: 10-08-2023 Telemedicine consultation with patient Tatianna Mckeoncasio [facility] Work Phone: [facility] Start: 09-25-2023 Refill Serena Sandhui D O Work Phone: Hematology/Oncology Comment on above: Refill Request Start: 09-23-2023 Refill Serena Sandhui D O Work Phone: Hematology/Oncology Comment on above: Refill Request Start: 09-10-2023 Refill Michell David Work Phone: Hematology/Oncology Comment on above: Refill Request Lip wound Start: 09-05-2023 End: 09-05-2023 Patient encounter procedure Tatianna Panshobhacasio [facility] Work Phone: [facility] Comment on above: Type 2 diabetes yolanda itus without complication, unspecified whether senior living insulin use (HCC) (Primary Dx) Start: 08-30-2023 ambulatory Tatianna Basurto allynasio [facility] Work Phone: [facility] Start: 08-30-2023 Patient encounter procedure Tatianna Paneccasio [facility] Work Phone: [facility] Comment on [...] E-mail encounter narda guerra caregiver Tatianna Crook [facility] Work Phone: [facility] Start: 08-13-2023 End: 08-13-2023 Patient encounter procedure Tatianna Crook [facility] Work Phone: [facility] Comment on above: Type 2 diabetes yolanda itus without complication, unspecified whether senior living insulin use (HCC) (Primary Dx) Ozempic Start: 08-13-2023 End: 08-13-2023 Telemedicine consultation with patient Tatianna Crook [facility] Work Phone: [facility] Start: 08-12-2023 [...] Jacinta huffman MD Work Phone: Internal Medicine [place] Comment on above: Diabetic tests strip s Start: 07-18-2023 End: 07-18-2023 Patient encounter procedure Tatianna [facility] Work Phone: [facility] Comment on above: Type 2 diabetes yolanda itus without complication, unspecified whether senior living insulin use (HCC) (Primary Dx) Start: 07-16-2023 End: 07-16-2023 Office outpatient visit 25 minutes Jacinta Rivas MD Work Phone: Internal Medicine [place] Comment on above: Newly diagnosed Unco ntrolled type 2 diabetes mellitus with hyperglycemia (HCC) (Primary Dx); Urinary tract infection without hematuria, site unspecified; Metastasis from breast cancer (HCC) Start: 07-15-2023 End: 07-15-2023 ambulatory Bobbi Vanegas PT [facility] Physical Therapy Comment on above: Lymphedema of left a rm (Primary Dx); Malignant neoplasm of lower-outer quadrant of left breast of female, estrogen receptor positive (HCC); 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 lymph node (HCC); 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) Start: 07-10-2023 ambulatory Jacinta huffman MD Work Phone: Internal Medicine [place] Comment on above: Metforman Start: 07-08-2023 End: 07-08-2023 Emergency department patient visit [facility]-Emergency Department Work Phone: Start: 07-08-2023 End: 07-08-2023 Patient encounter procedure Carla Forbes APRN.SECURITY GUARD DISPATCHER Work Phone: [facility] Comment on above: Urinary frequency (P rimary [...] Patient encounter procedure Michell Frankie Work Phone: [facility] Start: 07-03-2023 Telephone encounter Serena burgos DO [...] Refill Request Start: 05-23-2023 ambulatory Kassy snell APRN.SECURITY GUARD DISPATCHER Work Phone: Hematology/Oncology Comment on above: mouth wash Start: 05-17-2023 ambulatory Kassy snell APRN.SECURITY GUARD DISPATCHER Work Phone: Hematology/Oncology Comment on above: mouth [...] Start: 03-05-2023 End: 03-05-2023 ambulatory Injection [facility] Work Phone: Hematology/Oncology Comment on above: [...] with patient Myla Springer Work Phone: [facility] Start: 02-12-2023 ambulatory Myla batista Work Phone: Podiatry Comment on above: Meloxicam Start: 02-12-2023 Telephone encounter Jacinta ambriz MD Work Phone: Family Medicine [place] Comment on above: Consult Start: 2023 Orders Only Serena Slaughter Work Phone: Hematology/Oncology Comment on above: Malignant neoplasm o f lower-outer quadrant of left breast of female, estrogen receptor positive (HCC) (Primary Dx); 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); 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) Start: 01-29-2023 ambulatory Kassy snell APRN.SECURITY GUARD DISPATCHER Work Phone: Hematology/Oncology Comment on above: PET Start: 01-28-2023 End: 01-28-2023 Subsequent hospital visit by physician Injection [facility] CT Comment on above: Malignant neoplasm o f left breast in female, estrogen receptor positive, unspecified site of breast (HCC) [C50.912, Z17.0] Start: 01-18-2023 Refill Jacinta huffman MD Work Phone: Internal Medicine [place] Comment on above: Refill Request Start: 01-09-2023 Telephone encounter Kassy baires APRN.SECURITY GUARD DISPATCHER Work Phone: Hematology/Oncology Comment on above: AVS 01/09 Start: 01-08-2023 Telephone encounter Mino DOHERTY Hematology/Oncology Comment on above: Social Work Services Start: 12-27-2022 Telephone encounter Serena burgos DO Work Phone: Hematology/Oncology Comment on above: Results Start: 12-26-2022 End: 12-26-2022 ambulatory Treatment Rm 12 [facility] Work Phone: Hematology/Oncology Comment on above: [...] encounter procedure Serena Carrasco DO Work Phone: [facility] Start: 12-17-2022 End: 12-17-2022 ambulatory Lab/[facility] Work Phone: Hematology/Oncology Comment on above: [...] Start: 12-13-2022 End: 12-13-2022 ambulatory Injection [facility] Work Phone: Hematology/Oncology Comment on above: 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) (Primary Dx); Malignant neoplasm of lower-outer quadrant of left breast of female, estrogen receptor positive (HCC); 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) Start: 12-03-2022 End: 12-03-2022 ambulatory Lab/[facility] Work Phone: Hematology/Oncology Comment on above: Malignant neoplasm o f lower-outer quadrant of left breast of female, estrogen receptor positive (HCC); 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) Start: 11-28-2022 Telephone encounter Dena Lechuga RN He matology/Oncology Comment on above: Button Tufting Machine Operator - O ther (Oral Anti-Cancer Agents Education/Follow-up ) Start: 11-15-2022 End: 11-15-2022 ambulatory Injection [facility] Work Phone: Hematology/Oncology Comment on above: [...] End: 11-07-2022 ambulatory Treatment Rm 11 [facility] Work Phone: Hematology/Oncology Comment on above: Dehydration (Primary Dx); Functional diarrhea Start: 11-06-2022 End: 11-06-2022 ambulatory Treatment Rm 6 [facility] Work Phone: Hematology/Oncology Comment on above: Dehydration (Primary Dx); Functional diarrhea Refill Request Start: 11-06-2022 Telephone encounter Serena burgos DO Work Phone: Hematology/Oncology Comment on above: Results Start: 11-05-[address] [facility] Start: 11-05-2022 Patient encounter procedure 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); Functional diarrhea Start: 09-21-2022 Telephone encounter Serena burgos DO Work Phone: Hematology/Oncology Comment on above: Results; Future Appo intment Start: 09-21-2022 End: 09-21-2022 ambulatory Treatment Rm 4 [facility] Work Phone: Hematology/Oncology Comment on above: Functional diarrhea (Primary Dx) Start: 09-20-2022 Nursing evaluation o f patient and report Chantale Bundy RN Hematology/Oncology Comment on above: Examination of parti cipant in clinical trial (Primary Dx) 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) (Primary Dx) Start: 09-20-2022 End: 09-20-2022 Patient encounter procedure Serena Carrasco DO Work Phone: [facility] Start: 09-20-2022 Telephone encounter Serena burgos DO Work Phone: Hematology/Oncology Comment on above: Results (UA) Start: 09-20-2022 End: 09-20-2022 ambulatory Treatment Rm 12 [facility] Work Phone: Hematology/Oncology Comment on above: Functional diarrhea (Primary Dx) Start: 09-20-2022 End: 09-20-2022 ambulatory Injection [facility] Work Phone: Hematology/Oncology Comment on above: Carcinoma [...] Start: 09-06-2022 End: 09-06-2022 ambulatory Injection [facility] Work Phone: Hematology/Oncology Comment on above: [...] Telephone encounter Eliz lockwood MD Work Phone: [facility] Comment on above: Results Start: 08-17-2022 Telephone encounter Serena burgos DO Work Phone: Hematology/Oncology Comment on above: Refill Request Start: 08-16-2022 End: 08-16-2022 ambulatory Injection [facility] Work Phone: Hematology/Oncology Comment on above: 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) (Primary Dx); Malignant neoplasm of lower-outer quadrant of left breast of female, estrogen receptor positive (HCC); 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) Start: 08-16-2022 Patient encounter procedure Kenyon Lopes [facility] Comment on above: SPP Oral Oncology/he matology - Treatment Referral (Verzenio) Start: 08-16-2022 Telephone encounter Serena burgos DO Work Phone: Hematology/Oncology Comment on above: AVS 08/16/22; Questio n Start: 08-15-2022 End: 08-15-2022 Subsequent hospital visit by physician Mri [facility] (1.5t/Lg Bore 70cm) Work Phone: [facility] Comment on above: Malignant neoplasm o f lower-outer quadrant of left breast of female, estrogen receptor positive (HCC) [C50.512, Z17.0] Start: 08-14-2022 End: 08-14-2022 ambulatory Kam Dangelo MD Work Phone: Pulmonology Comment on above: Results (Post bronch oscopy note) Start: 08-13-2022 Telephone encounter Cori Cox RN Pulmonary Medicine Comment on above: Appointment Start: 08-13-2022 End: 08-13-2022 ambulatory KAM DANGELO Facility:[facility] Start: 08-13-2022 End: 08-13-2022 Patient encounter procedure Kam Dangelo MD Work Phone: Pulmonology Comment on above: Adenopathy (Primary Dx); 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); Primary biliary cirrhosis (HCC); Malignant neoplasm of lower-outer quadrant of left breast of female, estrogen receptor positive (HCC) Start: 08-09-2022 End: 08-09-2022 Admission to [place] [id number] Work Phone: [facility] Start: 08-09-2022 End: 08-09-2022 ambulatory [place] [address] Work Phone: Pre Anesthesia Comment on above: Pre-op evaluation (P rimary Dx); Chemotherapy-induced neuropathy (HCC); Chemotherapy-induced cardiomyopathy (HCC); Primary biliary cirrhosis (HCC); Lumbar degenerative disc disease; Class 1 obesity due to excess calories with serious comorbidity and body mass index (BMI) of 32.0 to 32.9 in adult Start: 08-09-2022 End: 08-09-2022 Preprocedural examination done [place] [id number] Work Phone: Pre Anesthesia Start: 08-06-2022 ambulatory Kam amaya MD Work Phone: Pulmonology Comment on above: Bronchoscopy Schedul ing Start: 08-02-2022 End: 08-02-2022 Subsequent hospital visit by physician [facility] (1.5t) [facility] Comment [...] encounter procedure Serena Carrasco DO Work Phone: [facility] [email or web address] Comment on above: Malignant neoplasm o f lower-outer quadrant of left breast of female, estrogen receptor positive (HCC) (Primary Dx) Start: 07-19-2022 End: 07-19-2022 Patient encounter procedure Eliz Bingham MD Work Phone: Breast Center Comment on above: Malignant neoplasm o f lower-outer quadrant of left breast of female, estrogen receptor positive (HCC) (Primary Dx) Start: 07-09-2022 End: 07-09-2022 ambulatory Treatment Rm 13 [facility] Work Phone: Hematology/Oncology Comment on above: Malignant neoplasm o f left breast in female, estrogen receptor positive, unspecified site of breast (HCC) (Primary Dx) Start: 07-04-2022 Nursing evaluation o f patient and report Chantale Bundy RN Hematology/Oncology Comment on above: Examination of parti cipant in clinical trial (Primary Dx) Start: 07-04-2022 End: 07-04-2022 Patient encounter procedure Serena Carrasco DO Work Phone: [facility] Start: 07-04-2022 Telephone encounter Bianca Addison RN [...] Jacinta ambriz MD Work Phone: Family Medicine [place] Comment on above: Medication Request Start: 06-26-2022 Orders Only Wendy Madison [facility] HB-3 Comment on above: Abnormal ultrasound of breast (Primary Dx) Start: 06-25-2022 Refill Serena Slaughter Work Phone: Hematology/Oncology Comment on above: Refill Request Start: 06-01-2022 Documentation procedure Mammog abdirashid Coordinator [facility] Start: 06-01-2022 Letter encounter Mammography Coordinator [facility] Department Start: 05-25-2022 Refill Serena Slaughter Work Phone: Hematology/Oncology Comment on above: Refill Request Start: 04-26-2022 Telephone encounter Kassy baires 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 Work Phone: Hematology/Oncology Comment on above: Results [...] [facility] Start: 02-23-2022 Telephone encounter Kassy baires 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 Work Phone: Hematology/Oncology Comment on above: Patient Question Start: 02-19-2022 End: 02-19-2022 Patient encounter status Jacinta Rivas MD Work Phone: Internal Medicine [place] Start: 02-19-2022 End: 02-19-2022 Periodic preventive med est patient 40-64yrs Jacinta Rivas MD Work Phone: Internal Medicine [place] Comment on above: Routine medical exam (Primary Dx); Elevated glucose; Acute cystitis without hematuria; Encounter for immunization Start: 02-07-2022 Telephone encounter Brent watts APRN.SECURITY GUARD DISPATCHER Work Phone: [facility] Comment on above: Results Start: 02-05-2022 End: 02-05-2022 Patient encounter procedure Victoria Wendy DUARTE.SECURITY GUARD DISPATCHER Work Phone: [place] [facility] Comment on above: Frequent urination ( Primary Dx) Start: 01-25-2022 Orders Only Myla batista Work Phone: Podiatry Start: 01-22-2022 End: 01-22-2022 ambulatory Treatment Rm 13 [facility] Work Phone: Hematology/Oncology Comment on above: Malignant neoplasm o f left breast in female, estrogen receptor positive, unspecified site of breast (HCC) (Primary Dx) Start: 11-30-2021 End: 11-30-2021 ambulatory [facility] Work Phone: Start: 11-30-2021 End: 11-30-2021 Patient encounter procedure [facility]Radiology, [facility] Start: 10-11-2021 End: 10-11-2021 Patient encounter procedure Eliz Bingham MD Work Phone: Breast Center Comment on above: Malignant neoplasm o f lower-outer quadrant of left breast of female, estrogen receptor positive (HCC) (Primary Dx) Start: 09-08-2021 ambulatory Jacinta huffman MD Work Phone: Internal Medicine [place] Comment on above: Paxlovid information Start: 09-08-2021 [...] 08-09-[address] Work Phone: [facility] Start: 08-09-2021 End: 08-09-2021 Nutrition therapy Seren[address] Godwin RD Work Phone: Radiation Oncology Comment on above: Nutrition Assessment Start: 08-07-2021 End: 08-07-2021 ambulatory Treatment Rm 7 [facility] Work Phone: Hematology/Oncology Comment on above: Malignant neoplasm o f left breast in female, estrogen receptor positive, unspecified site of breast (HCC) (Primary Dx) Start: 08-02-2021 Nursing evaluation o f patient and report Chantale Bundy RN Hematology/Oncology Comment on above: Examination of parti cipant in clinical trial (Primary Dx) Start: 08-02-2021 End: 08-02-2021 Patient encounter procedure Serena Carrasco DO Work Phone: [facility] Start: 08-02-2021 End: 08-02-2021 ambulatory Serena Carrasco [...] 02-13-2021 Subsequent hospital visit by physician [facility] [place] Work Phone: Radiology Comment on above: Cough [R05.9] Start: 01-03-2021 End: 01-03-2021 Subsequent hospital visit by physician [facility] Work Phone: Radiology Comment on above: Cough [R05] Start: 01-27-2018 Patient encounter procedure Serena Carrasco DO Work Phone: [facility] Work Phone: Start: 03-22-2017 End: 03-22-2017 Annotation/Addendum Mindi Dasilva [employer] Officer al Medicine Start: 03-14-2017 End: 03-14-2017 Office [...] Start: 07-19-2014 End: 07-19-2014 Annotation/Addendum Mindi Paredes Flight [employer] Officer al Medicine Start: 07-16-2014 End: 07-16-2014 Office outpatient visit 15 minutes Mindi Dasilva [facility] Start: 07-02-2014 End: 07-02-2014 Office outpatient visit 15 minutes Mindi Dasilva [facility] Start: 03-19-2014 End: 03-19-2014 Office outpatient visit 25 minutes Mindi Dasilva [facility] Start: 03-02-2014 End: 03-02-2014 Phone Encounter Mindi Paredes Flight [employer] Officer al Medicine Start: 11-30-2013 End: 11-30-2013 Periodic preventive med est patient 40-64yrs Mindi Brown [facility] Internal Medicine Start: 11-18-2013 End: 11-18-2013 Annotation/Addendum Mindi Brown [facility] Flight Communications Officer al Medicine Start: 11-18-2013 End: 11-18-2013 Office outpatient visit 25 minutes Mindi Dasilva [facility] Internal Medicine Start: 11-02-2013 End: 11-02-2013 Office outpatient visit 25 minutes Mindi Brown [facility] Internal Medicine Start: 10-19-2013 End: 10-19-2013 Annotation/Addendum Mindinoel Dasilva [facility] Flight [employer] Officer al Medicine Start: 10-14-2013 End: 10-14-2013 Office outpatient visit 25 minutes Mindi Dasilva [facility] Internal Medicine Start: 01-15-2013 End: 01-15-2013 Patient encounter procedure Mindi Dasilva [facility] Internal Medicine Start: 10-11-2011 End: 10-11-2011 Patient encounter procedure Mindi Dasilva [facility] Internal Medicine Start: 08-29-2011 End: 08-29-2011 Patient encounter procedure Mindi Dasilva [facility] Internal Medicine Start: 08-01-2011 End: 08-01-2011 Patient encounter procedure Mindi Brown [facility] Internal Medicine Start: 11-10-2010 End: 11-10-2010 Patient encounter procedure Mindi Dasilva [facility] Internal Medicine Start: 10-10-2010 End: 10-10-2010 Patient encounter procedure Mindi Dasilva [facility] Internal Medicine Start: 04-21-2010 End: 04-21-2010 Patient encounter procedure Mindi Dasilva [facility] Internal Medicine Start: 04-17-2010 End: 04-17-2010 Patient encounter procedure Mindi Dasilva [facility] Internal Medicine Start: 09-19-2009 End: 09-19-2009 Patient encounter procedure Mindi Dasilva [facility] Internal Medicine Start: 09-09-2009 End: 09-09-2009 Patient encounter procedure Mindi Dasilva [facility] Internal Medicine Start: 01-28-2009 End: 01-28-2009 Patient encounter procedure Mindi Dasilva [facility] Internal Medicine Start: 05-11-2008 End: 05-11-2008 Office outpatient visit 15 minutes Mindi Paredes Internal Medicine Start: 09-04-2007 End: 09-04-2007 Patient encounter procedure Mindi Dasilva [facility] Internal Medicine Start: 03-07-2007 End: 03-07-2007 Office outpatient visit 40 minutes Mindi Brown [facility] Internal Medicine Start: 09-04-2006 End: 09-04-2006 Office outpatient visit 10 minutes Mindi Dasilva [facility] Internal Medicine Start: 07-18-2006 End: 07-18-2006 Patient encounter procedure Mindi Dasilva [facility] Internal Medicine Start: 06-27-2006 End: 06-27-2006 Office outpatient visit 25 minutes Mindi Dasilva [facility] Internal Medicine Start: 06-24-2006 End: 06-24-2006 Historical Summary Mindi Dasilva [facility] Flight [employer] Officer al Medicine Start: 06-20-2006 End: 06-20-2006 Refill Request Mindi Dasilva [facility] Flight [employer] Officer al Medicine Procedures Date Procedure Procedure Detail Performing Clinician Start: 10-26-2024 Urnls dip stick/tablet rgnt auto w/o microscopy Lisbet Pizano 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 Work Phone: Start: 10-26-[address] attenuation skull base mid-thigh Serena Carrasco DO Work Phone: Start: 10-26-2024 Gluc bld gluc mntr dev cleared fda spec home use [facility] Provider Start: 09-23-2024 [facility] real time w/image complete Nel Day 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 Work Phone: Start: 09-22-2024 Urnls dip stick/tablet reagent auto microscopy Nel Day 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 Work Phone: Start: 09-22-2024 Urnls dip stick/tablet rgnt auto w/o microscopy Nel Day 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 Work Phone: Start: 09-07-2024 Urnls dip stick/tablet rgnt auto w/o microscopy Cathy Burr 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 Work Phone: Start: 06-30-2024 Gluc bld gluc [...] Start: 05-07-2024 STREP A MOLECULAR (POC) Cathy Burr 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 Work Phone: Start: 04-28-2024 Radiologic exam chest 2 views Carlafazal Forbes 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 Work Phone: Start: 04-28-2024 INFLUENZA A&B MOLECULAR (POC) [facility] Provider Start: 04-15-2024 GLOOKO ON DEMAND [facility] Provider Start: 04-13-2024 Dup-scan xtr veins unilateral/limited study Serena Carrsaco DO Work Phone: Start: 04-06-2024 Gluc bld [...] stick/tablet rgnt auto w/o microscopy Lisbet Pizano 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 Work Phone: Start: 07-16-2023 Hemoglobin A1c/Hemoglobin.total in Blood Jacinta Rivas MD Work Phone: Start: 07-08-2023 Gluc bld gluc mntr dev cleared fda spec home use Carla Forbes 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 Work Phone: Start: 07-08-2023 Urnls dip stick/tablet rgnt auto w/o microscopy Carla Forbes 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 Work Phone: Start: 01-28-[address] attenuation skull base mid-thigh Kassy Raman 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 Work Phone: Start: 09-20-2022 Urnls dip stick/tablet [...] 6 MO - 64 YRS IM Jacinta Rivas MD Work Phone: Start: 02-19-2022 Urnls dip stick/tablet rgnt auto w/o microscopy Jacinta Rivas MD Work Phone: Start: 02-05-2022 Urnls dip stick/tablet rgnt auto w/o microscopy Paige Pepe 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 Work Phone: Start: 11-30-2021 Radiography of esophagus Start: 11-30-2021 Ultrasound elastography Start: 11-30-2021 Ultrasonography of abdomen Start: 07-31-2021 Adult depression screening assessment Serena Carrasco DO Work Phone: Start: 02-13-2021 Radiologic exam chest 2 views Jacinta Rivas MD Work Phone: Start: 01-03-2021 Radiologic exam chest 2 views Paige Pepe 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 Work Phone: Start: 02-26-2019 Mammography Serena Carrasco DO Work Phone: Start: 10-07-2018 Lipid 1996 panel - Serum or Plasma Serena Carrasco DO Work Phone: Start: 08-13-2018 History of radiation therapy History of radiation therapy Serena Carrasco DO Work Phone: Start: 05-01-2017 End: 05-01-2017 12 lead ECG Comments: See Note; NOTES: [facility] Cardiovascular Services [address] [place] [address] 12 Lead EKG 04/24/17 1044 MR#: [id number] Acct: [id number] Name: PAT SORTO Rep #: [id number] : 1960 57 From: Serena Callaway MD Attending Dr: Subhash Silverio MD Status: DEP [facility] Ordering Dr: Subhash Silverio MD Date: 04/24/17 Location: [facility] [place] Sex: F C Admitted: [...] wave progression Confirmed by SID NARAYAN, SERENA ([id number]), assistant production editor TATE BOOTH ([id number]) on 05/01/2017 12:04:39 PM Referred By: Subhash Silverio Confirmed By:SERENA CALLAWAY MD 05/01/17 1204 Date Serena Callaway MD CC: Mindi Dasilva DO; Subhash Silverio MD Signed Mindi Dasilva Start: 04-26-2017 End: 04-26-2017 Discharge Instruction Comments: See Note; NOTES: [facility] Medical Records Department [address] [place] [address] Instructions for Home/Discharge Instructions 04/24/17 1243 MR#: [id number] Acct: [id number] Name: PAT SORTO Rep #: [id number] : 1960 57 From: Subhash Silverio MD PCP: Mindi Dasilva DO Status: DEP [facility] [place] Discharge Diet: Light diet [...] mg PO TUSA 04/23/17 Hydrocodone Bitart/Apap 5-325 [[place] 5MG-325MG] 1 tablet PO Q6H PRN PRN #10 tablet 04/24/17 The following prescriptions were given: Hydrocodone Bitart/Apap 5-325 [[place] 5MG-325MG] 1 tablet PO Q6H PRN PRN #10 tablet PRN Reason: Pain Primary Care Physician: Mindi Dasilva DO [Primary Care Provider] - Please Follow Up With: Subhash Silverio MD - [phone] When: Call to make an appointment to be seen in about 10 days. 04/26/17 0617 <Electronically signed by Subhash Silverio MD> Date Subhash Silverio MD CC: Mindi Callejas Start: 04-26-2017 End: 04-26-2017 Operative Report Comments: See Note; NOTES: [facility] Medical Records Department [address] [place] [address] Operative Report 04/24/17 1323 MR#: [id number] Acct: [id number] Name: PAT SORTO Rep #: [id number] : 1960 57 From: Subhash Silverio MD PCP: Mindi Dasilva DO Status: [facility] Y Location: [facility] [place] Problem List (1) Breast [...] Same Surgery/Procedure Performed:: Right internal jugular 6 Italian PowerPort placement Description of Surgical Findings:: Right internal jugular 6 Italian PowerPort placement Timeout and informed consent was [...] 1 View (Portable) Comments: See Note; NOTES: [facility] Imaging Services [address] [place] [address] Chest 1 View (Portable) MR#: [id number] Acct: [id number] Name: PAT SORTO Rep #: [id number] : 1960 F 57 From: Wil Arora MD PCP: Mindi Dasilva DO Status: [facility] Study: Chest 1 View (Portable) Date of Exam: 04/24/17 Exam# [id number] Ordering Dr: Subhash Silverio MD STUDY: X-RAY [...] Wil Arora MD at 14:30 EST Tel [phone], Service support , CC: Mindi Dasilva DO; Subhash Sivlerio MD Electric Meter Installer: Signed Mindi Dasilva Start: 04-19-2017 End: 04-19-2017 Surgery Visit Report Comments: See Note; NOTES: [place] [address] OFFICE VISIT Date of Service: 04/19/17 MR#: [id number] Acct: [id number] Name: PAT SORTO Rep #: [id number] : 1960 Provider: Subhash Silverio MD Age/Sex: 57/F Location: [facility] Status: Signed Intake Intake Visit Reasons: Left axillary Lymph node biopsy, discuss surgery Epic Specialist Required: No Is patient in pain?: No [...] mg PO ONCE 04/04/17 [History Confirmed 04/09/17] [facility] Medical History Breast cancer (Acute) Abnormal [...] most recent office charting reflects the following [facility] Medical History Abnormal mammogram of left [...] Plan Today was approximately a 40 minute zqaw-dz-kjvh consultative appointment regarding these findings. Admittedly the [...] wants to pursue definitive treatment here at [place]. I offered her any of the 4 local encoding clerk oncologist. She is aware that you are associated with [facility] and 2 are associated with [facility]. The patient is leaning toward wanting care Via [facility] physicians. For that reason I have strongly recommended to her that we obtain the MRI through [facility]. As noted on her previous evaluation she [...] comment that she was considering referral to [facility] specialty breast center. It is for that reason that we obtain the MRI in [place]. The results suggest that the 2 lesions [...] referral to Dr. Serena Carrasco Office Procedures 40629 Biopsy of Lymph Node Performed By: Procedure [...] Surgery Visit Report Comments: See Note; NOTES: [facility] [address] [place] [address] OFFICE VISIT Date of Service: 04/09/17 MR#: [id number] Acct: [id number] Name: PAT SORTO Rep #: [id number] : 1960 Provider: Subhash Silverio MD Age/Sex: 57/F Location: [facility] Status: Signed Intake Intake Visit Reasons: breast path Epic Specialist Required: No Is patient in pain?: No [...] mg PO ONCE 04/04/17 [History Confirmed 04/09/17] [facility] Medical History Abnormal mammogram of left [...] Plan Today was approximately a 40 minute jltc-re-ljzn consultative appointment regarding these findings. Admittedly the [...] wants to pursue definitive treatment here at [place]. I offered her any of the 4 local encoding clerk oncologist. She is aware that you are associated with [facility] and 2 are associated with [facility]. The patient is leaning toward wanting care Via [facility] physicians. For that reason I have strongly recommended to her that we obtain the MRI through [facility]. As noted on her previous evaluation she [...] Orthopedic Visit Report Comments: See Note; NOTES: [facility] Medicine [address] [place] [address] OFFICE VISIT Date of Service: 04/04/17 MR#: [id number] Acct: [id number] Name: PAT SORTO Rep #: [id number] : 1960 Provider: Palma Carter DO Age/Sex: 57/F Location: [facility] Status: Signed Intake Vital Signs04/04/17 Height [...] mg PO ONCE 04/04/17 [History Confirmed 04/04/17] [facility] Medical History Abnormal mammogram of left [...] Views with Pelvis Comments: See Note; NOTES: [facility] Imaging Services [address] [place] [address] Hip 2-3 Views with Pelvis MR#: [id number] Acct: [id number] Name: PAT SORTO Rep #: [id number] : 1960 F 57 From: Alan Eason MD PCP: Mindi Dasilva DO Status: REG CLI Study: Hip 2-3 Views with Pelvis Date of Exam: 04/04/17 Exam# [id number] Ordering Dr: Palma Carter DO STUDY: X-RAY [...] CC: Palma Carter DO; Mindi Dasilva DO Electric Meter Installer: Signed Mindi Dasilva Start: 03-29-2017 End: 03-29-2017 Surgery Visit Report Comments: See Note; NOTES: [facility] [address] [place] [address] OFFICE VISIT Date of Service: 03/29/17 MR#: [id number] Acct: [id number] Name: PAT SORTO Rep #: [id number] : 1960 Provider: Subhash Silverio MD Age/Sex: 57/F Location: [facility] Status: Signed Intake Vital Signs03/29/17 Height 5 ft 7 in 03/29/17 Weight: 190 lb 1 oz Intake Visit Reasons: Positive Ultrasound Birads 5 03/21 [facility] Chief Complaint: left breast birads 5 Epic Specialist Required: No Is patient in pain?: No [...] PO QDAY ea 03/29/17 [History Confirmed 03/29/17] [facility] Medical History Abnormal mammogram of left [...] Drew and he has graduated from the [employer]. 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 7-year-old female. A0. Menarche at age 13. First child was born when she was 30. In 2006 she [address] directed by Dr. Ford Avila to [facility]. By her report she had an excisional left breast biopsy. She has multiple hemostatic clips in the left breast. She states that that was benign. 2 years ago for routine life insurance screening she had laboratory. That demonstrates abnormal liver function tests. She is cared for by and she carries a diagnosis of primary biliary cirrhosis. At the [facility] on March 15, 2017 she had bilateral [...] Breast Limited Unilateral Comments: See Note; NOTES: [facility] Imaging Services [address] [place] [address] Breast Limited Unilateral MR#: [id number] Acct: [id number] Name: PAT SORTO Rep #: [id number] : 1960 F 57 From: Wil Arora MD PCP: Mindi Dasilva DO Status: REG CLI Study: Breast Limited Unilateral Date of Exam: 03/21/17 Exam# [id number] Ordering Dr: Mindi Dasilva DO STUDY: ULTRASOUND [...] Wil Arora MD at 12:40 EST Tel [phone], Service support , CC: Mindi Dasilva DO Electric Meter Installer: Signed Mindi Dasilva Work Phone: Start: 03-15-2017 End: 03-15-2017 SCREENING MAMM (CAD), BILAT Comments: See Note; NOTES: [facility] Imaging Services [address] [place] [address] SCREENING MAMM (CAD), BILAT MR#: [id number] Acct: [id number] Name: PAT SORTO Rep #: [id number] : 1960 F 57 From: Wil Arora MD PCP: Mindi Dasilva DO Status: REG CLI Study: SCREENING MAMM (CAD), BILAT Date of Exam: 03/15/17 Exam# [id number] Ordering Dr: Mindi Dasilva DO MAMMOGRAPHY - [...] delay biopsy of a clinically suspicious abnormality. [id number] Electronically Signed: Wil Arora MD at 12:42 EST Tel [phone], Service support , CC: Mindi Dasilva DO Electric Meter Installer: Signed Mindi Dasilva Work Phone: Start: 01-28-2017 End: 01-29-2017 Chest without Contrast Comments: See Note; NOTES: [facility] Imaging Services [address] [place] [address] Chest without Contrast MR#: [id number] Acct: [id number] Name: PAT SORTO Rep #: [id number] : 1960 F 56 From: Wil Arora MD PCP: Mindi Dasilva DO Status: REG CLI Study: Chest without Contrast Date of Exam: 01/28/17 Exam# [id number] Ordering Dr: Jarred Schulte MD STUDY: CT [...] Wil Arora MD at 13:07 EDT Tel [phone], Service support , CC: Jarred Schulte MD; Mindi Dasilva DO Electric Meter Installer: Signed Mindi Dasilva Start: 01-24-2017 End: 01-24-2017 Dexa Bone Density Study (HP) Comments: See Note; NOTES: [facility] Imaging Services [address] [place] [address] Dexa Bone Density Study () MR#: [id number] Acct: [id number] Name: PAT SORTO Rep #: [id number] : 1960 F 56 From: Wil Arora MD PCP: Mindi Dasilva DO Status: [facility] Study: Dexa Bone Density Study (HP) Date of Exam: 01/24/17 Exam# [id number] Ordering Dr: Ney Hart MD STUDY: DUAL [...] Wil Arora MD at 11:34 EDT Tel [phone], Service support , CC: Mindi Dasilva DO; Ney Hart Electric Meter Installer: Signed Mindi Dasilva Start: 03-07-2016 Total knee replacement Mindi Dasilva Comment on above: Patient: PAT SORTO : 1960 (56 /F) Acct Num: [id number] Phys: William De Los Santos DO Unit Num: [id number] Loc: [facility] Specimen: [id number] Received: 03/07/16 - 1222 Spec Type: TOTAL [...] prominent osteophyte formation, eburnation, and bone erosion. Lace Weaver sections are submitted in two cassettes as follows: 1 - Soft tissue, 2 - bone after decalcification. / SJ:dru 03/07/16 TC:5 CPT: 15848, 39536 HEADER OPERATION: Left total knee arthroplasty PRE-OP DIAGNOSIS: Unilateral primary osteoarthritis, left knee TISSUE SUBMITTED: Bone, left knee MICROSCOPIC DESCRIPTION Slides are reviewed. MICROSCOPIC DIAGNOSIS Bone and soft tissue of left knee, total knee resection: Mild synovial hyperplasia. Severe degenerative joint disease. AM:dru 03/12/16 Signed Bill [facility] 03/12/16 [facility] [id number] [facility] [place], [place], [id number] Start: 03-05-2016 End: 03-05-2016 12 lead ECG Comments: See Note; NOTES: [facility] Cardiovascular Services [address] [place] [address] 12 Lead EKG 03/02/16 1031 MR#: [id number] Acct: [id number] Name: PAT KELLEY Rep #: [id number] : 1960 56 From: Serena Callaway MD [...] sinus rhythm Normal ECG Confirmed by SERENA CALLAWAY MD ([id number]), assistant production editor LAURO DECKER ([id number]) on 03/05/2016 9:41:28 AM Referred By: OLGA Confirmed By:SERENA CALLAWAY MD 03/05/16 0941 Date Serena Callaway MD CC: Mindi Dasilva DO Date Dictated: 03/02/16 1031 Date Transcribed: 03/02/16 1031 Electric Meter Installer: Signed Mindi Dasilva Start: 02-13-2016 End: 02-13-2016 Chest without Contrast Comments: See Note; NOTES: [facility] Imaging Services [address] [place] [address] Verdana 4d Chest without Contrast MR#: [id number] Acct: [id number] Name: DEBRAPAT SORTOPAT Mackey Rep #: [id number] : 1960 F 56 From: Simone Winchester MD PCP: Mindi Dasilva DO Status: REG CLI Study: Chest without Contrast Date of Exam: 02/13/16 Exam# [id number] Ordering Dr: Jarred Schulte MD STUDY: CT [...] MD at 23:25 EST , Service support [phone], CC: Jarred Schulte MD; Mindi Dasilva DO Electric Meter Installer: Signed Mindi Dasilva Start: 09-30-2015 End: 10-04-2015 PET/CT Tumor Base -Thigh Init Comments: See Note; NOTES: [facility] Imaging Services [address] [place] [address] Verdana 4d PET/CT Tumor Base -Thigh Init MR#: [id number] Acct: [id number] Name: PAT KELLEY Rep #: [id number] : 1960 F 55 From: Nicci Shane DO PCP: Mindi Dasilva DO Status: [facility] Study: PET/CT Tumor Base -Thigh Init Date of Exam: 10/03/15 Exam# [id number] Ordering Dr: Felicia Stanley PROJECT SYSTEMS ENGINEER-C EXAMINATION: FDG PET CT INDICATIONS: A 55-year-old [...] not fulfill quantitative criteria for viable neoplasm. (Tong et al, Annals of Internal Medicine, 138:724, [...] at 21:44 EDT Tel , Service support [phone], CC: Felicia Stanley; Mindi Dasilva DO Electric Meter Installer: Signed Mindi Dasilva Start: 09-20-2015 End: 09-20-2015 Chest WITH Contrast Comments: See Note; NOTES: [facility] Imaging Services [address] [place] [address] Verdana 4d Chest WITH Contrast MR#: [id number] Acct: [id number] Name: DEBRAPAT SORTOPAT Key Rep #: [id number] : 1960 F 55 From: Wil Arora MD PCP: Mindi Dasilva DO Status: REG CLI Study: Chest WITH Contrast Date of Exam: 09/20/15 Exam# [id number] Ordering Dr: Jarred Schulte MD STUDY: CT [...] Wil Arora MD at 8:54 EDT Tel [phone], Service support [phone], CC: Jarred Schulte MD; Mindi Dasilva DO Electric Meter Installer: Signed Mindi Dasilva Start: 07-18-2015 End: 07-18-2015 Spmtry w/vc expiratory deion w/wo mxml vol vntj [Preliminary Information] Sensor Calibration Date: 07/26/2014; Sensor SN: [id number]; Pressure: 760; Temperature: 21.3575144594215 [Pre-Bronchodilator] FVC: 2.22977596559653; FEV (0.5 secs): 1.82791788951721; FEV (1.0 sec): 2.37272815091518; FEV (3.0 secs): 1.62380966726021; FEV (6.0 secs): 0; FEV (1.0 sec) / FVC: 83.4141460151390; FEV (3.0 secs) / FVC: 71.4821890060014; FEV (1.0 sec) / FEV (6.0 secs): 0; FEF (25-75%): 2.39335735217813; FEF (75-85%): 0.819871087282135; PEF: 4.6082691552466; FEF (25%): 4.24164915932478; FEF (75%): 1.7022971708853; FEF (200-1200): 3.98210449313264; EXP TIME: 2.5; Best FVC: 2.72107525070505; Best FEV (1.0 sec): 2.34013032219062; V ext.: 0.0055927691411324; FIVC: 2.66102005514603; FIV (0.5 sec): 0.055689498152962; FEV (0.5 secs) / FIV (0.5 secs): 224.16160622714; FIF (50%): 1.0830286328022; FEF (50%) / FIF (50%): 141.085457428052; MVV: 0; MTV: 0; RR: 0; MVV [...] 2V No CXR Comments: See Note; NOTES: [facility] Imaging Services [address] [place] [address] Verdana 4d Ribs Unil 2V No CXR MR#: [id number] Acct: [id number] Name: PAT KELLEY Rep #: [id number] : 1960 F 55 From: Wil Arora MD PCP: Mindi Dasilva DO Status: REG CLI Study: Ribs Unil 2V No CXR Date of Exam: 07/12/15 Exam# [id number] Ordering Dr: Mindi Dasilva DO STUDY: X-RAY [...] Wil Arora MD at 9:58 EDT Tel [phone], Service support [phone], RAD/Ribs Unil 2V No CXR IMPRESSION: Normal x-ray examination of the ribs. Electronically Signed: Wil Arora MD at 9:58 EDT Tel [phone], Service support [phone], CC: Mindi Dasilva DO Electric Meter Installer: Signed Mindi Dasilva Work Phone: Start: 07-11-2015 End: 07-11-2015 Spmtry w/vc expiratory deion w/wo mxml vol vntj _ Mindi Dasilva Work Phone: Comment on above: lil obstruction Start: 06-13-2015 End: 06-15-2015 Chest PA and Lateral Comments: See Note; NOTES: [facility] Imaging Services [address] [place] [address] Smith 4d Chest PA and Lateral MR#: [id number] Acct: [id number] Name: PAT KELLEY Rep #: [id number] : 1960 F 55 From: Wil Arora MD PCP: Mindi Dasilva DO Status: REG CLI Study: Chest PA and Lateral Date of Exam: 06/13/15 Exam# [id number] Ordering Dr: Mindi Dasilva DO STUDY: X-RAY [...] Wil Arora MD at 14:21 EST Tel [phone], Service support [phone], RAD/Chest PA and Lateral IMPRESSION: Noncalcified 1.9 cm x 1.3 cm nodule in the left upper lobe. Electronically Signed: Wil Arora MD at 14:21 EST Tel [phone], Service support [phone], CC: Mindi Dasilva DO Electric Meter Installer: Signed Mindi Dasilva Work Phone: Start: 06-25-2014 End: 06-25-2014 Emergency Department Summary Comments: See Note; NOTES: [facility] Medical Records Department [address] [place] [address] Emergency Department Summary MR#: [id number] Acct: [id number] Name: PAT SORTO Rep #: [id number] : 1960 54 From: Neeraj Inman MD PCP: Mindi Dasilva DO Status: [facility] ER DATE OF SERVICE: 06/25/2014 CHIEF [...] blood pressure. 3. History of hypertension. MD Huyen Abel C: Mindi Sánchez MD T: NTS JOB: [id number] 06/25/14 0542 <Electronically signed by Neeraj Inman MD> Date Neeraj Inman MD CC: Mindi Dasilva DO; Sen Mahmood MD Date Dictated: 06/25/14251 Date Transcribed: 06/25/14251 Electric Meter Installer: Signed Mindi Dasilva Start: 06-25-2014 End: 06-25-2014 Discharge Instruction Comments: See Note; NOTES: [facility] Medical Records Department [address] [place] [address] Discharge Instruction 06/25/14220 MR#: [id number] Acct: [id number] Name: PAT SORTO Rep #: [id number] : 1960 54 From: Neeraj Inman MD PCP: Mindi Dasilva DO Status: REG ER ED Disposition - Plan for ED Patient: Disposition: Home Chief Complaint: Nosebleed Instructions: Nosebleed Prescriptions: Hydrocodone Bitart/Apap 5-325 [Wa[place]a 5/325] 1 - 2 tablet PO Q4H [...] problems, contact your doctor. Call [facility] ( [phone]) or report to the closest Emergency Room. Call 911 if necessary. 06/25/14 0224 <Electronically signed by Neeraj Inman MD> Date Neeraj Inman MD Cosigner Signature (If Indicated): Date CC: Mindi Callejas Start: 06-07-2014 End: 06-07-2014 Biopsy/Inj or Needle Placement Comments: See Note; NOTES: [facility] Imaging Services [address] [place] [address] CAT Scan Report MR#: [id number] Acct: [id number] Name: PAT SORTO Rep #: [id number] : 1960 F 54 From: Wil Arora MD PCP: Mindi Dasilva DO Status: REG CLI Study: Biopsy/Inj or Needle Placement Date of Exam: 06/07/14 Exam# [id number] Ordering Dr: Ney Hart MD PROCEDURE: CT [...] Wil Arora MD at 10:30 EST Tel [phone], Service support [phone], CC: Mindi Dasilva DO; Ney Hart Electric Meter Installer: Signed Mindi Dasilva Start: 04-14-2014 End: 04-14-2014 12 lead ECG Comments: See Note; NOTES: [facility] Cardiovascular Services [address] [place] [address] 12 Lead EKG 04/13/14 1412 MR#: [id number] Acct: [id number] Name: PAT SORTO Rep #: [id number] : 1960 54 From: Serena Callaway MD [...] : 424 ms Sinus rhythm with short GA Low voltage QRS ( LIMB LEADS) Confirmed by SID NARAYAN, SERENA ([id number]), assistant production editor TATE BOOTH ([id number]) on 04/14/2014 10:27:14 AM Referred By: ALEM Confirmed By:SERENA CALLAWAY MD 04/14/14 1027 Date Serena Callaway MD CC: Mindi Dasilva DO Date Dictated: 04/13/14 1412 Date Transcribed: 04/13/141411 Electric Meter Installer: Signed Mindi Dasilva Start: 11-10-2013 End: 11-10-2013 Bilat Scrn Digital & CAD Comments: See Note; NOTES: [facility] Imaging Services [address] [place] [address] Breast Imaging Report MR#: [id number] Acct: [id number] Name: PAT SORTO Rep #: [id number] : 1960 F 53 From: Wil Arora MD PCP: Mindi Dasilva DO Status: REG CLI Exam# [id number] Ordering Dr: Farhana Alcaraz MAMMOGRAPHY - BILATERAL [...] Wil Arora MD at 14:53 EDT Tel [phone], Service support [phone], CC: Farhana Alcaraz; Mindi Dasilva DO Electric Meter Installer: Signed Farhana Alcaraz Work Phone: Start: 11-10-2013 End: 11-10-2013 Dexa Bone Density Study (HP) Comments: See Note; NOTES: [facility] Imaging Services [address] [place] [address]26 Bone Density Report MR#: [id number] Acct: [id number] Name: PAT SORTO Rep #: [id number] : 1960 F 53 From: Wil Arora MD PCP: Mindi Dasilva DO Status: [facility] Study: Dexa Bone Density Study (HP) Date of Exam: 11/10/13 Exam# [id number] Ordering Dr: Farhana Alcaraz STUDY: DUAL ENERGY [...] Wil Arora MD at 16:08 EDT Tel [phone], Service support [phone], CC: Farhana Alcaraz; Mindi Dasilva DO Electric Meter Installer: Signed Farhana Burgosleticiakey Work Phone: Start: 11-07-2013 End: 11-08-2013 Abdomen Limited Comments: See Note; NOTES: [facility] Imaging Services [address] [place] [address] Ultrasound Report MR#: [id number] Acct: [id number] Name: PAT SORTO Rep #: [id number] : 1960 F 53 From: Myles Ames PCP: Mindi Dasilva DO Status: REG CLI Study: Abdomen Limited Date of Exam: 11/07/13 Exam# [id number] Ordering Dr: Farhana Alcaraz STUDY: ABDOMINAL ULTRASOUND [...] Myles Ames MD at 7:06 EDT Tel [phone] , Service support [phone], CC: Farhana Alcaraz; Mindi Dasilva DO Electric Meter Installer: Signed Farhana Alcaraz Work Phone: Plan of Treatment Date Care Activity Detail Author Start: 07-04-2026 Diabetes Screening Diabetes Screening [facility] Start: 06-03-2026 Diabetes Screening Diabetes Screening [facility] Start: 05-01-2026 Diabetes Screening Diabetes Screening [facility] Start: 03-11-2026 Diabetes Screening Diabetes Screening [facility] Start: 03-05-2026 Diabetes Screening Diabetes Screening [facility] Start: 02-07-2026 Diabetes Screening Diabetes Screening [facility] Start: 01-09-2026 Diabetes Screening Diabetes Screening [facility] Start: 12-31-2025 Diabetes Screening Diabetes Screening [facility] Start: 12-20-2025 Diabetes Screening Diabetes Screening [facility] Start: 12-17-2025 DIABETES SCREEN DIABETES SCREEN [facility] Start: 12-17-2025 Diabetes Screening Diabetes Screening [facility] Start: 12-03-2025 DIABETES SCREEN DIABETES SCREEN [facility] Start: 11-15-2025 DIABETES SCREEN DIABETES SCREEN [facility] Start: 11-07-2025 DIABETES SCREEN DIABETES SCREEN [facility] Start: 11-06-2025 DIABETES SCREEN DIABETES SCREEN [facility] Start: 10-31-2025 DIABETES SCREEN DIABETES SCREEN [facility] Start: 10-26-2025 Annual PCP Team Chronic Disease Visit Annual PCP Team Chronic Disease Visit [facility] Start: 10-13-2025 Annual PCP Team Chronic Disease Visit Annual PCP Team Chronic Disease Visit [facility] Start: 09-25-2025 DIABETES SCREEN DIABETES SCREEN [facility] Start: 09-24-2025 DIABETES SCREEN DIABETES SCREEN [facility] Start: 09-22-2025 Annual PCP Team Chronic Disease Visit Annual PCP Team Chronic Disease Visit [facility] Start: 09-22-2025 Hepatitis B surface antibody level LDL Cholesterol [facility] Start: 09-21-2025 DIABETES SCREEN DIABETES SCREEN [facility] Start: 09-20-2025 DIABETES SCREEN DIABETES SCREEN [facility] Start: 09-07-2025 BP Controlled (<130/80) BP Controlled (<130/80) [facility] in Start: 09-06-2025 DIABETES SCREEN DIABETES SCREEN [facility] Start: 07-08-2025 Hepatitis B screening Urine Albumin:Creatinine Ratio [facility] Start: 07-08-2025 Hepatitis B surface antibody level LDL Cholesterol [facility] Start: 07-04-2025 DIABETES SCREEN DIABETES SCREEN [facility] Start: 04-26-2025 End: 04-26-2025 ambulatory [facility] Comment on above: BMP(S)* 2nd Start: 04-24-2025 BP Controlled (<130/80) BP Controlled (<130/80) [facility] in Start: 04-15-2025 End: 04-15-2025 ambulatory 04/15/2025 4:00 PM [facility] Endocrinology [address] [place] [address] Daisy Titus, 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 [address] [place] [address] 6 month f/u Endocrinology Comment on above: 6 month f/u Start: 04-08-2025 End: 07-08-2025 Comprehensive metabolic 2000 panel - Serum or Plasma COMPREHENSIVE METABOLIC PANEL Lab Routine Diabetes mellitus treated with insulin (HCC) Expected: 04/08/2025, Expires: 07/08/2025 [facility] Work Phone: Comment on above: Expected: 04/08/2025, Expires: Start: 04-08-2025 End: 07-08-2025 Hemoglobin A1c in Blood HEMOGLOBIN A1C Lab Routine Diabetes mellitus treated with insulin (HCC) Expected: 04/08/2025, Expires: 07/08/2025 [facility] Comment on above: Expected: 04/08/2025, Expires: Start: 04-08-2025 End: 07-08-2025 LIPID PANEL, NONFASTING LIPID PANEL, NONFASTING Lab Routine Diabetes mellitus treated with insulin (HCC) Expected: 04/08/2025, Expires: 07/08/2025 [facility] Comment on above: Expected: 04/08/2025, Expires: Start: 04-08-2025 End: 07-08-2025 Microalbumin/Creatinine [Mass Ratio] in Urine ALBUMIN/CREATININE RATIO, URINE Lab Routine Diabetes mellitus treated with insulin ([facility]) Expected: 04/08/2025, Expires: 07/08/2025 [facility] Comment on above: Expected: 04/08/2025, Expires: Start: 03-24-2025 Hemoglobin A1c measurement HbA1C [facility] Start: 03-23-2025 End: 03-23-2025 Patient encounter procedure 03/23/2025 10:00 AM EST Office Visit Internal Medicine [place] [address] [place] [address] Jacinta Rivas MD [address] [place] [address] Yearly Internal Medicine [place] Comment on above: Yearly Start: 03-18-2025 Annual PCP Team Chronic Disease Visit Annual PCP Team Chronic Disease Visit [facility] Start: 02-19-2025 DIABETES SCREEN DIABETES SCREEN [facility] Start: 02-08-2025 End: 02-08-2025 ambulatory 02/08/2025 8:50 AM EST Visit (SP) Office Hematology/Oncology [address] [place] [address] Serena Carrasco DO [address] [place] [address] OV PET SCAN Hematology/Oncology Comment on above: OV PET SCAN Start: 02-01-2025 End: 02-01-2025 Patient encounter procedure Mobile PET CT Comment on above: Malignant neoplasm of left breast in fem nicolette, estrogen receptor positive, unspecified site of breast (HCC) [C50.912, Z17.0] Start: 01-18-2025 DIABETES SCREEN DIABETES SCREEN [facility] Start: 01-13-2025 End: 01-13-2025 Patient encounter procedure 01/13/2025 10:00 AM EDT Office Visit Orthopaedics [address] [address] Subhash Avila PA-C [address] [place] [address] 1 year follow up right hip Orthopaedics Comment on above: 1 year follow up right hip Start: 01-07-2025 Hemoglobin A1c measurement HbA1C [facility] Start: 12-22-2024 End: 12-22-2024 Patient encounter procedure 12/22/2024 10:00 AM EDT Office Visit Plastic Surgery [address] [place] [address] Micki Marcelino MD [address] [place] [address] post op Plastic Surgery Comment on above: post op Start: 12-18-2024 End: 12-18-2024 Patient encounter procedure 12/18/2024 10:00 AM EDT Office Visit Cardiology [address] [place] [address] Felicia Armstrong MD [address] [place] [address] Primary hypertension [I10] Cardiology Comment on above: Primary hypertension [I10] Start: 12-17-2024 End: 12-17-2024 Patient encounter procedure 12/17/2024 10:00 AM EDT Office Visit Plastic Surgery [address] [address] Micki Marcelino MD [address] [place], [place] [phone] Reading Plastic Surgery Comment on above: Reading Start: 12-14-2024 End: 12-14-2024 ambulatory 12/14/2024 11:00 AM EDT Education Endocrinology [address] [place] [address] Giana Phillips, RD [address] [address] Advice for diabetics and kidneys Endocrinology Comment on above: Advice for diabetics and kidneys Start: 12-10-2024 End: 12-10-2024 ambulatory 12/10/2024 12:45 PM EDT OT/PT/Speech Visit [facility] Physical [facility] [address] [facility] [address] Milagros Brown, PT lymph [facility] Physical [facility] Comment on above: lymph Start: 12-08-2024 End: 12-08-2024 ambulatory 12/08/2024 2:15 PM EDT OT/PT/Speech Visit [facility] Physical [facility] [address] [place] [place] [address] Noe Jackson, CLIFF [address] [address] lymph [facility] Physical [facility] [place] Comment on above: lymph Start: 12-07-2024 Influenza vaccination [facility] Start: 12-06-2024 Subsequent hospital visit by physician 12/06/2024 Hospital Encounter Surgery Center [address] [place] [address] Micki Marcelino MD [address] [place], [place] [phone] Lymphedema [I89.0] Surgery Center Comment on above: Lymphedema [I89.0] Start: 11-22-2024 Subsequent hospital visit by physician 11/22/2024 Hospital Encounter Surgery Center [address] [place] [address] Micki Marcelino MD [address] [place] [address] Lymphedema [I89.0] Surgery Center Comment on above: Lymphedema [I89.0] Start: 11-20-2024 Glaucoma screening Dilated Retinal Exam [facility] Start: 11-20-2024 End: 11-20-2024 ambulatory 11/20/2024 10:15 AM EDT Results Only [facility] [place] [facility] [address] [place] [address] Sharad [place] [facility] Start: 11-18-2024 End: 11-18-2024 ambulatory 11/18/2024 2:15 PM EDT OT[facility]PT[facility] [address] [address] Noe Jackson, TILT TRAY DRIVER [address] [place] [address] lymph [facility] [place] Comment on above: lymph Start: 11-17-2024 End: 11-17-2024 Patient encounter procedure 11/17/2024 1:00 PM EDT Office Visit Kidney Medicine [facility] [address] [place] [address] [place] [address] [place] [address] abnormal kidney labs Kidney Medicine [facility] Comment on above: abnormal kidney labs Start: 11-16-2024 End: 11-16-2024 ambulatory 11/16/2024 9:00 AM EDT OT/PT/Speech Visit [facility] [place] [address] [facility] [address] Noe Jackson, TILT TRAY DRIVER [address] [address] [address] lymph [facility] [place] Comment on above: lymph Start: 11-13-2024 End: 11-13-2024 Patient encounter procedure 11/13/2024 11:00 AM EDT [facility] [address] [address] Tatianna Crook, [facility] [address] [place] [address] DM f/up Pharm [facility] Comment on above: DM f/up Start: 11-10-2024 End: 11-10-2024 Patient encounter procedure 11/10/2024 2:20 PM EDT Office Visit Plastic Surgery [address] [address] Mino Beard APRN.SECURITY GUARD DISPATCHER [address] [address] ICG/Scan Plastic Surgery Comment on above: ICG/Scan Start: 11-10-2024 BP Controlled (<130/80) BP Controlled (<130/80) [facility] in Start: 11-10-2024 Hepatitis B surface antibody level LDL Cholesterol [facility] Start: 11-09-2024 End: 11-09-2024 ambulatory 11/09/2024 2:15 PM EDT OT/PT/Speech Visit [facility] Physical [address] [address] Milagros Brown, PT Progress summary [facility] [place] Comment on above: Progress summary Start: 11-09-2024 End: 11-09-2024 ambulatory Hematology/Oncology Comment on above: Q6MO ZOMETA BMP(S)* Start: 11-06-2024 End: 11-06-2024 ambulatory 11/06/2024 9:45 AM EDT OT/PT/Speech Visit [facility] Physical [facility] [address] [place] [address] Noe Jackson, CLIFF [address] [place] [address] Lymphedema [facility] Physical [facility] [place] Comment on above: Lymphedema Start: 11-04-2024 End: 11-04-2024 ambulatory 11/04/2024 10:30 AM EDT OT/PT/Speech Visit [facility] Physical Therapy [place] [address] [place] [address] RobbyNoe cheatham, TILT TRAY DRIVER [address] [facility] [place] [address] Lymphedema [facility] [place] Comment on above: Lymphedema Start: 10-30-2024 End: 10-30-2024 ambulatory Hematology/Oncology Comment on above: 3MO OV* Lymphedema 3MO OV Start: 10-28-2024 End: 10-28-2024 ambulatory 10/28/2024 3:45 PM EDT OT/PT/Speech Visit [facility] Physical [place] [address] [place] [address] Noe Jackson, TILT TRAY DRIVER [address] [place] [address] Lymphedema [facility] Physical [facility] Comment on above: Lymphedema Start: 10-27-2024 End: 10-27-2024 ambulatory [facility] Comment on above: CQMO BC/CMP QMO CBC/CMP(S) Start: 10-26-2024 End: 10-26-2024 ambulatory 10/26/2024 3:00 PM EDT [facility] Endocrinology [address] [place], [place] [phone] Giana Phillips RD [address] [id number] Diabetes mellitus treated with insulin (HCC) [E11.9, Z79.4] Endocrinology Comment on above: Diabetes mellitus treated with insulin ( HCC) [E11.9, Z79.4] Start: 10-26-2024 End: 10-26-2024 Patient encounter procedure 10/26/2024 2:20 PM EDT Office Visit Internal Medicine [place] [address] [place], [place] [phone] Lisbet Pizano APRN.SECURITY GUARD DISPATCHER [address] [place] [address] 10 day follow up Internal Medicine Sharad [...] ambulatory 10/22/2024 2:15 PM EDT OT/PT/Speech Visit [facility] [place] [address] [place], [place] [phone] Noe Jackson, TILT TRAY DRIVER [address] [place], [place] [phone] Lymphedema [facility] Physical [facility] Comment on above: Lymphedema Start: 10-22-2024 Annual PCP Team Chronic Disease Visit Annual PCP Team Chronic Disease Visit [facility] Start: 10-22-2024 BP Controlled (<130/80) BP Controlled (<130/80) [facility] Start: 10-21-2024 End: 10-21-2024 ambulatory 10/21/2024 3:45 PM EDT OT/PT/Speech Visit [facility] Physical Therapy [address] [address] Noe Jackson, TILT TRAY DRIVER [address] [facility] [address] Lymphedema [facility] [place] Comment on above: Lymphedema Start: 10-15-2024 End: 10-15-2024 Patient encounter procedure 10/15/2024 1:20 PM EDT Office Visit Plastic Surgery [address] [address] Mino Beard, USER EXPERIENCE DESIGNER.[facility] [address] [address] follow up Plastic Surgery Comment on above: follow up Start: 10-15-2024 End: 10-15-2024 ambulatory 10/15/2024 10:30 AM EDT OT/PT/Speech Visit [facility] [place] [address] [facility] [place] [address] Noe Jackson, TILT TRAY DRIVER [address] [facility] [address] L[facility]hedema [facility] [place] Comment on above: Lymphedema Start: 10-14-2024 End: 10-14-2024 Patient encounter procedure 10/14/2024 11:45 AM EDT Office Visit Endocrinology [address] [address] Daisy Titus, 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 [address] [place] [address] 6 month f/u Endocrinology Comment on above: 6 month f/u Start: 10-13-2024 End: 10-13-2024 ambulatory 10/13/2024 9:45 AM EDT OT/PT/Speech Visit [facility] [place] [address] [facility] [place] [address] Noe Jackson, TILT TRAY DRIVER [address] [place] [address] Lymphedema [facility] [place] Comment on above: Lymphedema Start: 10-11-2024 Subsequent hospital visit by physician 10/11/2024 Hospital Encounter Surgery Center [address] [address] Micki Marcelino MD [address] [place], [place] [phone] Lymphedema [I89.0] Surgery Center Comment on above: Lymphedema [I89.0] Start: 10-09-2024 End: 01-08-2025 Urinalysis complete panel - Urine URINALYSIS (WITH MICROSCOPIC) WITH CULTURE IF INDICATED Lab Routine Renal insufficiency Urinary tract infection with hematuria, site unspecified Expected: 10/09/2024 (Approximate), Expires: 01/08/2025 [facility] Comment on above: Expected: 10/09/2024 (Approximate), Expi res: 01/08/2025 Start: 10-07-2024 End: 10-07-2024 Patient encounter procedure 10/07/2024 3:30 PM EDT [facility] Pharm [facility] [address] [phone] [facility] [address] [place] [address] DM f/up Pharm Med Clinic Comment on above: DM f/up Start: 10-07-2024 End: 10-07-2024 ambulatory 10/07/2024 1:45 PM EDT Results Only [facility] [address] [place] [address] [facility] Start: 10-07-2024 End: 10-07-2024 ambulatory 10/07/2024 10:15 AM EDT OT/PT/Speech Visit [facility] Physical [facility] [address] [place] [address] [place] [address] Milagros Brown, PT Lymphedema [facility] [place] Comment on above: Lymphedema Start: 10-06-2024 End: 01-05-2025 Comprehensive metabolic 2000 panel - Serum or Plasma COMPREHENSIVE METABOLIC PANEL Lab Routine Diabetes mellitus treated with insulin (HCC) Expected: 10/06/2024, Expires: 01/05/2025 [facility] Work Phone: Comment on above: Expected: 10/06/2024, Expires: Start: 10-06-2024 End: 01-05-2025 Hemoglobin A1c in Blood HEMOGLOBIN A1C Lab Routine Diabetes mellitus treated with insulin (HCC) Expected: 10/06/2024, Expires: 01/05/2025 [facility] Comment on above: Expected: 10/06/2024, Expires: Start: 10-06-2024 End: 01-05-2025 LIPID PANEL, NONFASTING LIPID PANEL, NONFASTING Lab Routine Diabetes mellitus treated with insulin (HCC) Expected: 10/06/2024, Expires: 01/05/2025 [facility] Comment on above: Expected: 10/06/2024, Expires: Start: 10-06-2024 End: 01-05-2025 Microalbumin/Creatinine [Mass Ratio] in Urine ALBUMIN/CREATININE RATIO, URINE Lab Routine Diabetes mellitus treated with insulin (HCC) Expected: 10/06/2024, Expires: 01/05/2025 [facility] Comment on above: Expected: 10/06/2024, Expires: Start: 09-29-2024 End: 09-29-2024 ambulatory [place] [facility] Comment on above: CQMO BC/CMP QMO CBC/CMP(S) Start: 09-25-2024 End: 12-25-2024 Comprehensive metabolic 2000 panel - Serum or Plasma COMPREHENSIVE METABOLIC PANEL Lab Routine Renal insufficiency Urinary tract infection with hematuria, site unspecified Expected: 09/25/2024, Expires: 12/25/2024 [facility] Work Phone: Comment on above: Expected: 09/25/2024, Expires: Start: 09-24-2024 End: 09-24-2024 ambulatory 09/24/2024 9:45 AM EDT OT/PT/Speech Visit [facility] Physical [facility] [address] [place] [address] Noe Jackson, TILT TRAY DRIVER [address] [place] [address] Lymphedema [facility] Physical [facility] Comment on above: Lymphedema Start: 09-22-2024 End: 09-22-2024 ambulatory 09/22/2024 10:30 AM EDT OT/PT/Speech Visit [facility] Physical [place] [id number] [place] [address] Renetta Noe, TILT TRAY DRIVER [address] [place] [address] Lymphedema [facility] Physical [facility] Comment on above: Lymphedema Start: 09-16-2024 Hemoglobin A1c measurement HbA1C [facility] Start: 09-11-2024 End: 09-11-2024 ambulatory 09/11/2024 9:00 AM EDT OT/PT/Speech Visit [facility] Physical [facility] [address] [facility] [place] [address] Noe Jackson, TILT TRAY DRIVER [address] [facility] [place] [address] Lymphedema [facility] Physical [facility] Comment on above: Lymphedema Start: 09-08-2024 End: 09-08-2024 Patient encounter procedure 09/08/2024 11:00 AM EDT [facility] [address] [phone] [facility] [address] [place] [address] DM f/up Pharm Med [facility] Comment on above: DM f/up Start: 09-03-2024 End: 09-03-2024 Patient encounter procedure 09/03/2024 1:00 PM EDT Office Visit Plastic Surgery [address] [address] Micki Marcelino MD [address] [place] [address] post op Plastic Surgery Comment on above: post op Start: 09-01-2024 End: 09-01-2024 ambulatory Sharad Navarro [facility] Comment on above: CQMO BC/CMP QMO CBC/CMP(S) Start: 08-27-2024 End: 08-27-2024 ambulatory 08/27/2024 11:00 AM EDT OT/PT/Speech Visit [facility] [place] [address] [place] [address] Milagros Brown, PT History of breast cancer [Z85.3] [facility] [place] Comment on above: History of breast cancer [Z85.3] Start: 08-11-2024 End: 08-11-2024 Patient encounter procedure 08/11/2024 11:00 AM EDT [facility] [address] [phone] [facility] [address] [place] [address] DM f/up Pharm [facility] Comment on above: DM f/up Start: 08-07-2024 Hepatitis B surface antibody level LDL Cholesterol [facility] Start: 08-04-2024 End: 08-04-2024 ambulatory 08/04/2024 11:00 AM EDT Results Only Sharad [place] [facility] [address] [place] [address] CQMO BC/CMP [facility] Comment on above: CQMO BC/CMP Start: 08-03-2024 End: 08-03-2024 Patient encounter procedure 08/03/2024 10:20 AM EDT Office Visit Plastic Surgery [address] [place] [address] Micki Butler APRN.SECURITY GUARD DISPATCHER [address] [place] [address] Seroma drainage Plastic Surgery Comment on above: Seroma drainage Start: 08-02-2024 DIABETES SCREEN DIABETES SCREEN [facility] Start: 07-15-2024 Annual PCP Team Chronic Disease Visit Annual PCP Team Chronic Disease Visit [facility] Start: 07-15-2024 End: 07-15-2024 Patient encounter procedure 07/15/2024 1:00 PM EDT Office Visit [facility] [address] [place] [address] Micki Butler APRN.SECURITY GUARD DISPATCHER [address] [place] [address] post op [facility] Comment on above: post op Start: 07-14-2024 BP Controlled (<130/80) BP Controlled (<130/80) [facility] Start: 07-14-2024 End: 07-14-2024 Patient encounter procedure 07/14/2024 11:00 AM EDT [facility] [address] [phone] [facility] [address] [place], [place] [phone] DM f/up Pharm [facility] Comment on above: DM f/up Start: 07-09-2024 End: 07-09-2024 ambulatory [facility] Comment on above: CBC/CMP(S)* 3MO OV /LABS CBC/CMP (S)* Start: 07-08-2024 End: 07-08-2024 Patient encounter procedure 07/08/2024 11:30 AM EDT Appointment Radiology [address] [address] Thyroid nodule [E04.1] Radiology Comment on above: Thyroid nodule [E04.1] Start: 07-08-2024 End: 07-08-2024 ambulatory 07/08/2024 11:15 AM EDT Results Only [facility] [address] [place] [address] CBC/CMP(S)* [facility] Comment on above: CBC/CMP(S)* Start: 07-07-2024 End: 10-06-2024 CBC W Auto Differential panel - Blood COMPLETE BLOOD COUNT AND DIFFERENTIAL Lab Routine 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) Expected: 07/07/2024, Expires: 10/06/2024 [facility] Work Phone: Comment on above: Expected: 07/07/2024, Expires: Start: 07-07-2024 End: 10-06-2024 Comprehensive metabolic 2000 panel - Serum or Plasma [facility] Work Phone: Comment on above: Expected: 07/07/2024, Expires: Start: 07-07-2024 End: 10-06-2024 Hemoglobin A1c in Blood HEMOGLOBIN A1C Lab Routine Poorly control type 2 diabetes mellitus (HCC) Expected: 07/07/2024, Expires: 10/06/2024 [facility] Comment on above: Expected: 07/07/2024, Expires: Start: 07-07-2024 End: 10-06-2024 LIPID PANEL, NONFASTING LIPID PANEL, NONFASTING Lab Routine Poorly control type 2 diabetes mellitus (HCC) Expected: 07/07/2024, Expires: 10/06/2024 [facility] Comment on above: Expected: 07/07/2024, Expires: Start: 07-07-2024 End: 10-06-2024 Microalbumin/Creatinine [Mass Ratio] in Urine ALBUMIN/CREATININE RATIO, URINE Lab Routine Poorly control type 2 diabetes mellitus (HCC) Expected: 07/07/2024, Expires: 10/06/2024 [facility] Comment on above: Expected: 07/07/2024, Expires: Start: 07-06-2024 End: 07-06-2024 Patient encounter procedure 07/06/2024 10:20 AM EDT Office Visit Plastic Surgery [address] [place] [address] Micki Butler APRN.SECURITY GUARD DISPATCHER [address] [facility] [place] [address] post op Plastic Surgery Comment on above: post op Start: 06-30-2024 End: 06-30-2024 Patient encounter procedure Mobile PET CT Comment on above: Malignant neoplasm of left breast in fem nicolette, estrogen receptor positive, unspecified site of breast (HCC) [C50.912, Z17.0] Start: 06-25-2024 End: 06-25-2024 Patient encounter procedure 06/25/2024 1:00 PM EDT Office Visit Plastic Surgery [address] [address] Micki Marcelino MD [address] [place] [address] drain removal Plastic Surgery Comment on above: drain removal Start: 06-16-2024 End: 06-16-2024 Patient encounter procedure 06/16/2024 10:30 AM EDT [facility] [address] [phone] Tatianna Crook [facility] [address] [place] [address] DM f/up Pharm Med Clinic Comment on above: DM f/up Start: 06-11-2024 End: 06-11-2024 Admission to same day surgery center 06/11/2024 10:20 AM EST [facility] Plastic Surgery [address] [address] Mino Beard APRN.[facility] [address] [address] post op - virtual Plastic Surgery Comment on above: post op - virtual Start: 06-05-2024 End: 06-05-2024 Patient encounter procedure 06/05/2024 8:40 AM EST Office Visit Internal Medicine [facility] [address] [place] [address] Cathy Burr APRN.LOGISTICS TEAM LEADER [address] [place], [place] [address] follow up Internal Medicine Sharad Comment on above: follow up Start: 06-04-2024 End: 06-04-2024 Patient encounter procedure Internal Medicine Sharad Comment on above: follow up drain removal Start: 06-03-2024 BP Controlled (<130/80) BP Controlled (<130/80) [facility] Start: 05-29-2024 End: 05-29-2024 Patient encounter procedure 05/29/2024 10:40 AM EST Office Visit Plastic Surgery [address] [place] [address] Mino Beard APRN.SECURITY GUARD DISPATCHER [address] [place] [address] drain removal Plastic Surgery Comment on above: drain removal Start: 05-27-2024 End: 05-27-2024 Patient encounter procedure Breast Center Comment on above: post op post op Start: 05-26-2024 End: 08-25-2024 Basic metabolic 2000 panel - Serum or Plasma BASIC METABOLIC PANEL Lab Routine Palpitations Expected: 05/26/2024, Expires: 08/25/2024 [facility] Work Phone: Comment on above: Expected: 05/26/2024, Expires: Start: 05-26-2024 End: 08-25-2024 Thyrotropin [Units/volume] in Serum or Plasma THYROID STIMULATING HORMONE Lab Routine Palpitations Expected: 05/26/2024, Expires: 08/25/2024 [facility] Comment on above: Expected: 05/26/2024, Expires: Start: 05-26-2024 End: 05-26-2024 Patient encounter procedure 05/26/2024 9:40 AM EST Office Visit Internal Medicine Sharad [address] [place] [address] Cathy Burr APRN.LOGISTICS TEAM LEADER [address] [place] [address] [facility] ER F/U 05/21/2024; Palpitations Internal Medicine [place] Comment on above: [facility] ER F/U 05/21/2024; Palpitations Start: 05-25-2024 End: 05-25-2024 Patient encounter procedure 05/25/2024 2:00 PM EST Office Visit Plastic Surgery [address] [address] Mino Beard APRN.SECURITY GUARD DISPATCHER [address] [place] [address] post op surg 05/18 Plastic Surgery Comment on above: post op surg 05/18 Start: 05-18-2024 End: 05-18-2024 Mastectomy partial MASTECTOMY PARTIAL Malignant neoplasm of lower-outer quadrant of left breast of female, estrogen receptor positive (HCC) 05/18/2024 12:34 PM EST [facility] Start: 05-18-2024 End: 05-18-2024 Admission to same day surgery center Ambulatory Surgery Comment on above: MASTECTOMY SIMPLE REMOVAL IMPLANT [facility] Start: 05-18-2024 End: 05-18-2024 Mastectomy simple complete [facility] Start: 05-18-2024 End: 05-18-2024 Periprosthetic capsulectomy breast [facility] Start: 05-18-2024 End: 05-18-2024 Removal intact mammary implant [facility] Start: 05-18-2024 Subsequent hospital visit by physician Ambulatory Surgery Comment on above: Malignant neoplasm of lower-outer quadra nt of left breast of female, estrogen receptor positive (HCC) [C50.512, Z17.0] Start: 05-13-2024 End: 05-13-2024 ambulatory 05/13/2024 8:45 AM EST OT/PT/Speech Visit [facility] [address] [place] [address] Bobbi Vanegas, PT Priority: Routine [facility] Comment on above: Priority: Routine Start: 05-12-2024 End: 05-12-2024 Patient encounter procedure 05/12/2024 9:40 AM EST Office Visit [facility] [place] [address] [place] [address] Cathy Burr APRN.LOGISTICS TEAM LEADER [address] [place] [address] follow up [facility] [place] Comment on above: follow up Start: 05-11-2024 End: 05-11-2024 Nursing evaluation of patient and report 05/11/2024 9:30 AM EST Nurse Visit [facility] [address] [place] [address] Bianca Addison, FE PRE OP TEACHING W/ BIANCA [facility] Comment on above: PRE OP TEACHING W/ BIANCA Start: 05-08-2024 Annual PCP Team Chronic Disease Visit Annual PCP Team Chronic Disease Visit [facility] Start: 05-08-2024 BP Controlled (<130/80) BP Controlled (<130/80) [facility] Start: 05-07-2024 End: 05-07-2024 Patient encounter procedure Plastic Surgery Comment on above: POST OP SURG 05/01 cough congestion and check BP Start: 05-06-2024 End: 05-06-2024 ambulatory 05/06/2024 9:45 AM EST OT/PT/Speech Visit [facility] [address] [place] [address] Bobbi Vanegas PT Priority: Routine [facility] Comment on above: Priority: Routine Start: 05-05-2024 End: 05-05-2024 Patient encounter procedure 05/05/2024 10:30 AM EST [facility] [address] [phone] [facility] [address] [place] [address] DM f/up [facility] Comment on above: DM f/up Start: 05-04-2024 End: 05-04-2024 Anesthesia consultation 05/04/2024 11:00 AM EST PAT Pre Anesthesia [address] [place] [address] [facility] PACC Pre Anesthesia Comment on above: [facility] Start: 04-28-2024 End: 07-28-2024 INFLUENZA A&B MOLECULAR (POC) INFLUENZA A&B MOLECULAR (POC) Microbiology Routine Acute cough Expected: 04/28/2024, Expires: 07/28/2024 [facility] Work Phone: Comment on above: Expected: 04/28/2024, Expires: Start: 04-24-2024 End: 04-24-2024 ambulatory 04/24/2024 11:00 AM EST OT/PT/Speech Visit [facility] [address] [place] [address] Bobbi Vanegas, PT Malignant neoplasm of lower-outer quadrant of left breast of female, estrogen receptor positive (HCC) [C50.512, Z17.0] [facility] Comment on above: Malignant neoplasm of lower-outer quadra nt of left breast of female, estrogen receptor positive (HCC) [C50.512, Z17.0] Start: 04-15-2024 End: 04-15-2024 Patient encounter procedure 04/15/2024 12:15 PM EST Office Visit Endocrinology [address] [place] [address] Daisy Titus APRN.SECURITY GUARD DISPATCHER [address] [place] [address] 2 MTH F/U Endocrinology Comment on above: 2 MTH F/U Start: 04-13-2024 End: 04-13-2024 ambulatory 04/13/2024 3:00 PM EST Infusion Center Hematology/Oncology [address] [place] [address] Q6MO ZOMETA /MDCR Hematology/Oncology Comment on above: Q6MO ZOMETA /MDCR Start: 04-13-2024 End: 04-13-2024 Patient encounter procedure 04/13/2024 10:00 AM EST Appointment [facility] [address] [place] [id number] Malignant neoplasm of left breast in female, estrogen receptor positive, unspecified site of breast (HCC) [C50.912, Z17.0] [facility] Comment on above: Malignant neoplasm of left breast in fem nicolette, estrogen receptor positive, unspecified site of breast (HCC) [C50.912, Z17.0] Start: 04-10-2024 End: 04-10-2024 ambulatory [facility] Comment on above: CBC/CMP(S)* 3MO OV /LABS CBC/CMP * Start: 04-08-2024 Advance Directive Discussion Advance Directive Discussion [facility] Start: 04-06-2024 End: 04-06-2024 Patient encounter procedure [...] 1:00 PM EST Office Visit [facility] [place] [address] [place], [place] [phone] Jacinta Rivas MD [address] [place], [place] [phone] [facility]ness [facility] [place] Comment on above: Wellness Start: 03-11-2024 Annual PCP Team Chronic Disease Visit Annual PCP Team Chronic Disease Visit [facility] Start: 02-26-2024 End: 02-26-2024 Patient encounter procedure Breast Center Comment on above: REGROUP - STAFF MESSAGE CONSULTATION REMOVE IMPLANTS - STAFF MESSAGE REGROUP - STAFF [facility] Imaging per Delonte penny Start: 02-25-2024 End: 02-25-2024 Patient encounter procedure 02/25/2024 1:00 PM EST [facility] [address] [phone] [facility] [address] [place] [address] DM f/up [facility] Comment on above: DM f/up Start: 02-18-2024 End: 02-18-2024 Patient encounter procedure 02/18/2024 9:40 AM EST [facility]ment [facility] [address] [place], [place] [phone] BREAST MRI [facility] Comment on above: BREAST MRI Start: 02-16-2024 DIABETES SCREEN DIABETES SCREEN [facility] Start: 02-07-2024 Advance Directive Discussion Advance Directive Discussion [facility] Start: 02-07-2024 Screening for osteoporosis Bone Density Screening [facility] Start: 02-05-2024 End: 02-05-2024 Patient encounter procedure 02/05/2024 2:00 PM EDT Office Visit Endocrinology [facility] [place] [address] Daisy Titus APRN.SECURITY GUARD DISPATCHER [address] [place] [address] Type 2 diabetes mellitus with other specified [...] Annual Wellness Visit Medicare Annual Wellness Visit [facility] Start: 01-07-2024 End: 01-07-2024 Patient encounter procedure 01/07/2024 1:00 PM EDT [facility] [address] [phone] [facility] [address] [place], [place] [phone] DM f/up [facility] Comment on above: DM f/up Start: 01-06-2024 End: 01-06-2024 [facility] Comment on above: CBC/CMP* 2 MO OV/LABS EARLY/P ET 12/29/ON AFFINITOR* Start: 01-01-2024 End: 01-01-2024 Patient encounter procedure 01/01/2024 1:00 PM EDT [facility] [address] [phone] [facility] [address] [place], [place] [phone] DM f/up [facility] Comment on above: DM f/up Start: 12-30-2023 End: 12-30-2023 Patient encounter procedure Mobile PET CT Comment on above: Carcinoma of left breast metastatic to s kin (HCC) [C50.912, C79.2] Start: 12-18-2023 BP CONTROLLED (<130/80) BP CONTROLLED (<130/80) [facility] Start: 12-08-2023 Covid-19 Vaccine () Covid-19 Vaccine () [facility] Start: 12-08-2023 Covid-19 Vaccine () Covid-19 Vaccine () [facility] Start: 12-08-2023 Influenza [facility] Start: 11-26-2023 End: 11-26-2023 Patient encounter procedure 11/26/2023 1:30 PM EDT [facility] [address] [phone] [facility] [address], [place] [phone] f/up [facility] Comment on above: DM f/up Start: 11-19-2023 End: 11-19-2023 Patient encounter procedure 11/19/2023 10:00 AM EDT Appointment [facility] [address] [place] [phone] Right upper quadrant pain [R10.11] [facility] Comment on above: Right upper quadrant pain [R10.11] Start: 11-11-2023 End: 02-10-2024 Bacteria identified in Urine by Culture [facility] Work Phone: Comment on above: Expected: 11/11/2023, Expires: Start: 11-11-2023 End: 11-11-2023 ambulatory Sharad Navarro [facility] Comment on above: LIPID(FASTING)/(SO) CBC/CMP* 3 MO OV/LAB EARLY* Start: 10-30-2023 End: 10-30-2023 Patient encounter procedure 10/30/2023 2:00 PM EDT [facility] [place] [address] [phone] [facility] [address] [place] [address] DM f/up [facility] Comment on above: DM f/up Start: 10-23-2023 End: 01-22-2024 Urinalysis complete panel - Urine URINALYSIS, WITH MICROSCOPIC Lab Routine Acute cystitis with hematuria Expected: 10/23/2023, Expires: 01/22/2024 [facility] Work Phone: Comment on above: Expected: 10/23/2023, Expires: Start: 10-15-2023 Hemoglobin A1c measurement HbA1C [facility] Start: 10-08-2023 Lipid 1996 panel - Serum or Plasma Lipid Screening [facility] Start: 10-08-2023 Lipid panel Lipid Screening [facility] Start: 10-08-2023 LIPID SCREEN LIPID SCREEN [facility] Start: 10-08-2023 End: 10-08-2023 Patient encounter procedure 10/08/2023 10:00 AM EDT [facility] [address] [phone] [facility] [address] [place] [address] DM f/up [facility] Comment on above: DM f/up Start: 09-30-2023 End: 09-30-2023 ambulatory 09/30/2023 8:00 AM EDT Results Only Sharad Navarro [facility] [address] [place] [address] QMO [facility] Comment on above: QMO CBC/CMP Start: 09-21-2023 BP CONTROLLED (<130/80) BP CONTROLLED (<130/80) [facility] Start: 09-05-2023 End: 09-05-2023 Patient encounter procedure 09/05/2023 10:00 AM EDT Office Visit [facility] [address] [facility] [place] [address] 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 [address], [place] [phone] DM f/up; discuss Ozempic start [facility] Comment on above: DM f/up; discuss Ozempic start Start: 08-12-2023 End: 08-12-2023 Patient encounter procedure Mobile PET CT Comment on above: Malignant neoplasm of lower-outer quadra nt of left breast of female, estrogen receptor positive (HCC) [C50.512, Z17.0] Start: 08-10-2023 BP CONTROLLED (<130/80) BP CONTROLLED (<130/80) [facility] Start: 08-08-2023 End: 08-08-2023 ambulatory 08/08/2023 8:30 AM EDT Results Only Sharad Ellsworthwn [facility] [address] [place] [address] LIPID* [facility] Comment on above: LIPID* Start: 08-05-2023 End: 11-04-2023 Lipid 1996 panel - Serum or Plasma LIPID PANEL BASIC Lab Routine Chemotherapy-induced cardiomyopathy (HCC) Expected: 08/05/2023, Expires: 11/04/2023 [facility] Work Phone: Comment on above: Expected: 08/05/2023, Expires: Start: 08-02-2023 BP CONTROLLED (<130/80) BP CONTROLLED (<130/80) [facility] Start: 07-08-2023 [facility] Start: 07-08-2023 Bacteria identified in Urine by Culture [facility] Start: 06-03-2023 End: 09-02-2023 CYSTATIN C CYSTATIN C Lab Routine Malignant neoplasm of left breast in female, estrogen receptor positive, unspecified site of breast (HCC) (HCC) 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) Expected: 06/03/2023, Expires: 09/02/2023 [facility] Work Phone: Comment on above: Expected: 06/03/2023, Expires: Start: 06-03-2023 End: 09-02-2023 Magnesium [Mass/volume] in Serum or Plasma MAGNESIUM BLD Lab STAT Malignant neoplasm of left breast in female, estrogen receptor positive, unspecified site of breast (HCC) (HCC) 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) Expected: 06/03/2023, Expires: 09/02/2023 [facility] Work Phone: Comment on above: Expected: 06/03/2023, Expires: Start: 06-03-2023 End: 09-02-2023 Phosphate [Mass/volume] in Serum or Plasma PHOSPHORUS INORGANIC Lab Routine Malignant neoplasm of left breast in female, estrogen receptor positive, unspecified site of breast (HCC) (HCC) 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) Expected: 06/03/2023, Expires: 09/02/2023 [facility] Work Phone: Comment on above: Expected: 06/03/2023, Expires: Start: 05-31-2023 Mammography [facility] Start: 05-31-2023 Screening for malignant neoplasm of breast Mammogram Screening [facility] Start: 04-08-2023 Behavioral Health Screening Behavioral Health Screening [facility] Start: 04-08-2023 Depression Assessment Depression Assessment [facility] Start: 03-04-2023 HPV TESTING HPV TESTING [facility] Start: 03-04-2023 PAP TESTING PAP TESTING [facility] Start: 03-04-2023 Screening for malignant neoplasm of cervix [facility] Start: 02-19-2023 ANNUAL PCP TEAM CHRONIC DISEASE VISIT ANNUAL PCP TEAM CHRONIC DISEASE VISIT [facility] Start: 02-19-2023 BP CONTROLLED (<130/80) BP CONTROLLED (<130/80) [facility] Start: 02-19-2023 HEPATITIS A (1 of 2 - Risk 2-dose series) HEPATITIS A (1 of 2 - Risk 2-dose series) [facility] Comment on above: Postponed from 02/07/1961 (Declined at t his time) Postponed from 02/06 (Declined at this time) Start: 02-19-2023 Hepatitis A Vaccine (1 of 2 - Risk 2-dose series) Hepatitis A Vaccine (1 of 2 - Risk 2-dose series) [facility] Comment on above: Postponed from 1978 (Declined at t his time) Start: 02-19-2023 HEPATITIS B (1 of 3 - Risk 3-dose series) HEPATITIS B (1 of 3 - Risk 3-dose series) [facility] Comment on above: Postponed from 2019 (Declined at t his time) Start: 02-19-2023 Hepatitis B Vaccine (1 of 3 - Risk 3-dose series) Hepatitis B Vaccine (1 of 3 - Risk 3-dose series) [facility] Comment on above: Postponed from 2019 (Declined at t his time) Start: 02-19-2023 SHINGRIX VACCINE (1 of 2) SHINGRIX VACCINE (1 of 2) [facility] Comment on above: Postponed from 2009 (Declined at t his time) Postponed from 02/06 (Declined at this time) Start: 02-19-2023 Urine microalbumin profile [facility] Comment on above: Postponed from 1978 (Declined at t his time) Start: 02-07-2023 End: 05-09-2023 Magnesium [Mass/volume] in Serum or Plasma MAGNESIUM BLD Lab STAT Malignant neoplasm of lower-outer quadrant of left breast of female, estrogen receptor positive (HCC) 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) Expected: 02/07/2023, Expires: 05/09/2023 [facility] Work Phone: Comment on above: Expected: 02/07/2023, Expires: 4 Start: 01-18-2023 BP CONTROLLED (<130/80) BP CONTROLLED (<130/80) [facility] Start: 12-20-2022 End: 02-19-2023 Basic metabolic 2000 panel - Serum or Plasma BASIC METABOLIC PNL Lab STAT Malignant neoplasm of lower-outer quadrant of left breast of female, estrogen receptor positive (HCC) 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) Expected: 12/20/2022, Expires: 02/19/2023 [facility] Work Phone: Comment on above: Expected: 12/20/2022, Expires: 3 Start: 12-07-2022 Covid-19 Vaccine () Covid-19 Vaccine () [facility] Start: 12-07-2022 Influenza vaccination [facility] Start: 11-28-2022 End: 01-28-2023 Chronic hepatitis differentiation between hepatitis B and C virus panel - Serum or Plasma HEP REMOTE PANEL BL Lab Routine Carcinoma of left breast metastatic to skin (HCC) Expected: 11/28/2022, Expires: 01/28/2023 [facility] Work Phone: Comment on above: Expected: 11/28/2022, Expires: 3 Start: 11-15-2022 End: 01-15-2023 CBC W Auto Differential panel - Blood CBC + DIFF Lab STAT Malignant neoplasm of lower-outer quadrant of left breast of female, estrogen receptor positive (HCC) Carcinoma of left breast metastatic to skin (HCC) 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) Expected: 11/15/2022, Expires: 01/15/2023 [facility] Work Phone: Comment on above: Expected: 11/15/2022, Expires: 3 Start: 11-15-2022 End: 01-15-2023 Comprehensive metabolic 2000 panel - Serum or Plasma COMP METABOLIC PANEL Lab STAT Malignant neoplasm of lower-outer quadrant of left breast of female, estrogen receptor positive (HCC) Carcinoma of left breast metastatic to skin (HCC) 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) Expected: 11/15/2022, Expires: 01/15/2023 [facility] Work Phone: Comment on above: Expected: 11/15/2022, Expires: Start: 11-15-2022 End: 01-15-2023 Magnesium [Mass/volume] in Serum or Plasma MAGNESIUM BLD Lab STAT Malignant neoplasm of lower-outer quadrant of left breast of female, estrogen receptor positive (HCC) Carcinoma of left breast metastatic to skin (HCC) 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) Expected: 11/15/2022, Expires: 01/15/2023 [facility] Work Phone: Comment on above: Expected: 11/15/2022, Expires: Start: 11-06-2022 End: 01-06-2023 Basic metabolic 2000 panel - Serum or Plasma BASIC METABOLIC PNL Lab STAT Malignant neoplasm of lower-outer quadrant of left breast of female, estrogen receptor positive (HCC) 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) Expected: 11/06/2022, Expires: 01/06/2023 [facility] Work Phone: Comment on above: Expected: 11/06/2022, Expires: Start: 11-01-2022 End: 01-01-2023 CBC W Auto Differential panel - Blood CBC + DIFF Lab Routine Malignant neoplasm of lower-outer quadrant of left breast of female, estrogen receptor positive (HCC) Carcinoma of left breast metastatic to skin (HCC) Expected: 11/01/2022, Expires: 01/01/2023 [facility] Work Phone: Comment on above: Expected: 11/01/2022, Expires: 3 Start: 11-01-2022 End: 01-01-2023 Magnesium [Mass/volume] in Serum or Plasma MAGNESIUM BLD Lab STAT Malignant neoplasm of lower-outer quadrant of left breast of female, estrogen receptor positive (HCC) Carcinoma of left breast metastatic to skin (HCC) Expected: 11/01/2022, Expires: 01/01/2023 [facility] Work Phone: Comment on above: Expected: 11/01/2022, Expires: 3 Start: 11-01-2022 End: 01-01-2023 Phosphate [Mass/volume] in Serum or Plasma PHOSPHORUS INORGANIC Lab Routine Malignant neoplasm of lower-outer quadrant of left breast of female, estrogen receptor positive (HCC) Carcinoma of left breast metastatic to skin (HCC) Expected: 11/01/2022, Expires: 01/01/2023 [facility] Work Phone: Comment on above: Expected: 11/01/2022, Expires: 3 Start: 08-02-2022 BP CONTROLLED (<130/80) BP CONTROLLED (<130/80) [facility] Start: 07-31-2022 Adult depression screening assessment DEPRESSION SCREENING [facility] Start: 07-04-2022 End: 09-03-2022 CBC W Auto Differential panel - Blood CBC + DIFF Lab STAT Malignant neoplasm of lower-outer quadrant of left breast of female, estrogen receptor positive (HCC) Expected: 07/04/2022, Expires: 09/03/2022 [facility] Work Phone: Comment on above: Expected: 07/04/2022, Expires: 3 Start: 07-04-2022 End: 09-03-2022 Comprehensive metabolic 2000 panel - Serum or Plasma COMP METABOLIC PANEL Lab STAT Malignant neoplasm of lower-outer quadrant of left breast of female, estrogen receptor positive (HCC) Expected: 07/04/2022, Expires: 09/03/2022 [facility] Work Phone: Comment on above: Expected: 07/04/2022, Expires: 3 Start: 04-08-2022 DEPRESSION ASSESSMENT DEPRESSION ASSESSMENT [facility] Start: 02-15-2022 BP CONTROLLED (<130/80) BP CONTROLLED (<130/80) [facility] Start: 02-13-2022 ANNUAL PCP TEAM CHRONIC DISEASE VISIT ANNUAL PCP TEAM CHRONIC DISEASE VISIT [facility] Start: 02-13-2022 SHINGRIX VACCINE (1 of 2) SHINGRIX VACCINE (1 of 2) [facility] Comment on above: Postponed from 2009 (Declined at t his time) Postponed from 02/06 (Declined at this time) Start: 12-07-2021 Influenza vaccination INFLUENZA (#1) [facility] Start: 08-02-2021 End: 10-02-2021 CBC W Auto Differential panel - Blood CBC + DIFF Lab STAT Malignant neoplasm of left breast in female, estrogen receptor positive, unspecified site of breast (HCC) Nontoxic single thyroid nodule Expected: 08/02/2021, Expires: 10/02/2021 [facility] Work Phone: Comment on above: Expected: 08/02/2021, Expires: 2 Start: 08-02-2021 End: 10-02-2021 Comprehensive metabolic 2000 panel - Serum or Plasma COMP METABOLIC PANEL Lab Routine Malignant neoplasm of left breast in female, estrogen receptor positive, unspecified site of breast (HCC) Nontoxic single thyroid nodule Expected: 08/02/2021, Expires: 10/02/2021 [facility] Work Phone: Comment on above: Expected: 08/02/2021, Expires: 2 Start: 06-20-2021 COVID-19 VACCINE (4 - Booster for Moderna series) COVID-19 VACCINE (4 - Booster for Moderna series) [facility] [place] Start: 05-17-2021 COVID-19 VACCINE (4 - Booster for Moderna series) COVID-19 VACCINE (4 - Booster for Moderna series) [facility] Start: 05-17-2021 COVID-19 VACCINE (4 - Moderna series) COVID-19 VACCINE (4 - Moderna series) [facility] Start: 04-08-2021 DEPRESSION ASSESSMENT DEPRESSION ASSESSMENT [facility] Start: 02-27-2020 Mammography MAMMOGRAM [facility] Start: 10-08-2019 Hepatitis B surface antibody level LDL Cholesterol [facility] Start: 03-04-2019 Screening for malignant neoplasm of cervix Cervical Cancer Screening [facility] Start: 2019 HEPATITIS B (1 of 3 - Risk 3-dose series) HEPATITIS B (1 of 3 - Risk 3-dose series) [facility] Start: 2019 Hepatitis B Vaccine (1 of 3 - Risk 3-dose series) Hepatitis B Vaccine (1 of 3 - Risk 3-dose series) [facility] Start: 2019 RSV Vaccine (1 - 1-dose 60+ series) RSV Vaccine (1 - 1-dose 60+ series) [facility] Start: 2019 RSV Vaccine (1 - Risk 60-74 years 1-dose series) RSV Vaccine (1 - Risk 60-74 years 1-dose series) [facility] Start: 03-14-2017 Provider Instructions for Treatment [facility] Work Phone: Start: 02-11-2017 Provider Instructions for Treatment [facility] Work Phone: Start: 02-11-2017 Cytp cerv/vag auto thin layer prep mnl screen Thin prep Pap (70130) (no STD testing) [facility] Work [...] imfluor stain ea Influenza A&B Viral Culture (06862) [facility] Work Phone: Start: 10-18-2014 Provider Instructions for Treatment Follow up if no improvement or if symptoms worsen [facility] Work Phone: Start: 10-18-2014 ALP enzyme act/vol ALKALINE PHOSPHATASE (93974) [facility] Work Phone: Start: 10-18-2014 Comprehensive metabolic panel Metabolic Panel, Comprehensive (78294) [facility] Work Phone: Start: 10-18-2014 Hepatic function panel HEPATIC FUNCTION PANEL (29317) [facility] Work Phone: Start: 10-18-2014 Lipid panel Lipid Panel (11588) [facility] Work Phone: Start: 07-16-2014 Provider Instructions for Treatment Follow up in 3 months gen med KF [facility] Work Phone: Start: 07-02-2014 Provider Instructions for Treatment [facility] Work Phone: Start: 03-19-2014 Provider Instructions for Treatment [facility] Work Phone: Start: 03-02-2014 Urine albumin quantitative MICROALBUMIN: CREATININE RATIO (45005) AND (86123) [facility] Work Phone: Start: 03-02-2014 Urinalysis qual/semiquant except immunoassays URINALYSIS (52229) [facility] Work Phone: Start: 03-02-2014 Thyrotropin Qn TSH (99654) [facility] Work Phone: Start: 03-02-2014 Blood count manual cell count each CBC WITH MANUAL DIFF (07431) [facility] Work Phone: Start: 03-02-2014 Comprehensive metabolic panel Metabolic Panel, Comprehensive (96784) [facility] Work Phone: Start: 03-02-2014 Lipid panel Lipid Panel (80543) [facility] Work Phone: Start: 11-30-2013 Patient Education Mammogram *: gynecological health [facility] Work Phone: Start: 11-30-2013 Provider Instructions for Treatment [facility] Work Phone: Start: 11-30-2013 Blood occult fecal hgb deter ia qual feces 1-3 FECAL OCCULT HGB ASSAY- tubes sent home (44318) [facility] Work Phone: Start: 11-02-2013 Provider Instructions for Treatment *Colon Cancer Screening [facility] Work Phone: Start: 11-02-2013 Extractable nuclear antigen antibody any method Anti-Nona-1 (48897) [facility] Work Phone: Start: 10-19-2013 Fluorescent nonnfct agt antb screen ea antibody ASM (ANTI SMOOTH MUSCLE ANTIBODY) (57121) [facility] Work Phone: Start: 10-19-2013 Immunoassay analyte qual/semiqual multiple step ANTIMITOCHONDRIAL AB 6650 (09889) [facility] Work Phone: Start: 10-19-2013 Thyrotropin Qn TSH (THYROID STIMULATING HORMONE) (27725) [facility] Work Phone: Start: 10-19-2013 Amylase enzyme act/vol AMYLASE (30771) [facility] Work Phone: Start: 10-19-2013 Assay of lipase LIPASE (20255) [facility] Work Phone: Start: 10-14-2013 Provider Instructions for Treatment [facility] Work Phone: Start: 10-14-2013 Urine albumin quantitative MICROALBUMIN URINE QUANT (07085) [facility] Work Phone: Start: 01-15-2013 [...] Phone: Start: 03-26-2011 Lipid panel LIPID PANEL (35485) [facility] Work Phone: Start: 11-13-2010 Glucose mass conc Glucose, PP/2 Hour (60545) [facility] Work Phone: Start: 11-10-2010 Dna antibody [place]/double stranded DNA ANTIBODY-NATV/DBL ST (37925) test code [id number] [facility] Work Phone: Start: 11-10-2010 Rheumatoid factor quantitative RHEUMATOID FACTOR-QUANT (62567) test code 143448 [facility] Work Phone: Start: 11-10-2010 Extractable nuclear antigen antibody any method [facility] Work Phone: Start: 11-10-2010 Protein mass conc 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[employer] DESIGNER (ANTI RIBONUCLEAR PROTEIN ANTIBODY) (36389) test code 402198 [facility] Work Phone: Start: 11-10-2010 Provider Instructions for Treatment [facility] Work Phone: Start: 10-10-2010 Provider Instructions for Treatment FOLLOW UP - MAKE APPT AFTER DIAGNOSTIC TESTS [facility] Work Phone: Start: 10-10-2010 Cyclic citrullinated peptide antibody CCP ANTIBODY (15899) [facility] Work Phone: Start: 10-10-2010 Sedimentation rate rbc non-automated SED RATE ERYTHROCYTE (81838) [facility] Work Phone: Start: 10-10-2010 Blood count manual cell count each CBC WITH MANUAL DIFF (74194) [facility] Work Phone: Start: 10-10-2010 CRP mass conc C-REACTIVE PROTEIN (82822) [facility] Work Phone: Start: 10-10-2010 Nuclear Ab IF titer (S) VINCENZO (ANTINUCLEAR ANTIBODY) (50797) [facility] Work Phone: Start: 10-10-2010 Rheumatoid factor quantitative RHEUMATOID FACTOR-QUANT (47889) [facility] Work Phone: Start: 10-10-2010 Thyrotropin Qn TSH (69995) [facility] Work Phone: Start: 10-10-2010 Comprehensive metabolic panel METABOLIC PANEL, COMPREHENSIVE (76371) [facility] Work Phone: Start: 09-19-2009 Provider Instructions for Treatment [facility] Work Phone: Start: 09-19-2009 Blood occult fecal hgb deter ia qual feces 1-3 FECAL OCCULT HGB ASSAY- tubes sent home (64662) [facility] Work Phone: Start: 09-09-2009 Provider Instructions for Treatment [facility] Work Phone: Start: 09-09-2009 Thyrotropin Qn TSH (93503) [facility] Work Phone: Start: 09-09-2009 Urnls dip stick/tablet reagent auto microscopy URINALYSIS, W/ MICRO (06099) [facility] Work Phone: Start: 09-09-2009 Urine albumin quantitative MICROALBUMIN: CREATININE RATIO (61774) AND (55106) [facility] Work Phone: Start: 09-09-2009 Comprehensive metabolic panel METABOLIC PANEL, COMPREHENSIVE (44422) [facility] Work Phone: Start: 09-09-2009 Lipid panel LIPID PANEL (02967) [facility] Work Phone: Start: 09-09-2009 Blood count manual cell count each CBC WITH MANUAL DIFF (52558) [facility] Work Phone: Start: 05-11-2008 Provider Instructions for Treatment [facility] Work Phone: Start: 09-04-2007 Provider Instructions for Treatment [facility] Work Phone: Start: 09-04-2007 Glucose mass conc Glucose, PP/2 Hour (48698) [facility] Work Phone: Start: 09-04-2007 Thyrotropin Qn TSH (37538) [facility] Work Phone: Start: 09-04-2007 Lipid panel LIPID PANEL (07175) [facility] Work Phone: Start: 03-07-2007 Provider Instructions for Treatment [facility] Work Phone: Start: 03-07-2007 Electrolyte panel Electrolyte Panel (56153) [facility] Work Phone: Start: 03-07-2007 Lipid panel LIPID PANEL (67247) [facility] Work Phone: Comment on above: do in 4-6 months Start: 07-18-2006 Provider Instructions for Treatment [facility] Work Phone: Start: 07-18-2006 Cytp cerv/vag auto thin layer prep mnl screen Thin prep Pap (03963) [facility] Work Phone: Start: 06-27-2006 CRP mass conc C-Reactive Protein (15787) [facility] Work Phone: Start: 06-27-2006 Urnls dip stick/tablet rgnt auto w/o microscopy URINALYSIS W/O MICRO (16297) [facility] Work Phone: Start: 06-27-2006 Thyrotropin Qn TSH (92005) [facility] Work Phone: Start: 06-27-2006 Lipid panel LIPID PANEL (16931) [facility] Work Phone: Start: 02-07-2004 COLOGUARD (FIT-DNA) COLOGUARD (FIT-DNA) [facility] Start: 02-07-2004 Colonoscopy COLONOSCOPY [facility] Start: 02-07-2004 COLORECTAL CANCER SCREENING COLORECTAL CANCER SCREENING [facility] Start: 02-07-[address] COLONOGRAPHY [facility] Start: 02-07-2004 FECAL OCCULT BLOOD FECAL OCCULT BLOOD [facility] Start: 02-07-2004 Screening for malignant neoplasm of colon [facility] Start: 02-07-2004 SIGMOIDOSCOPY SIGMOIDOSCOPY [facility] Start: 1978 Hepatitis A Vaccine (1 of 2 - Risk 2-dose series) Hepatitis A Vaccine (1 of 2 - Risk 2-dose series) [facility] Start: 1978 HEPATITIS B (1 of 3 - Risk 3-dose series) HEPATITIS B (1 of 3 - Risk 3-dose series) [facility] Start: 1978 Shingrix Vaccine (1 of 2) Shingrix Vaccine (1 of 2) [facility] Start: 1978 Urine microalbumin profile [facility] Start: 1977 Anxiety Screening Anxiety Screening [facility] Start: 1977 BP CONTROLLED (<130/80) BP CONTROLLED (<130/80) [facility] in Start: 1977 Depression Screening Depression Screening [facility] Start: 1977 HIV SCREENING HIV SCREENING [facility] Start: 1969 Diabetic foot examination Diabetic Foot Exam [facility] Start: 1969 Glaucoma screening Dilated Retinal Exam [facility] Start: 1969 Hepatitis B screening Urine Albumin:Creatinine Ratio [facility] Start: 1965 PNEUMOCOCCAL (1 - PCV) PNEUMOCOCCAL (1 - PCV) [facility] Start: 02-07-1960 HEPATITIS A (1 of 2 - Risk 2-dose series) HEPATITIS A (1 of 2 - Risk 2-dose series) [facility] Bacteria identified in Urine by Culture URINE CULTURE Microbiology Routine Frequent urination Ordered: 02/05/2022 [facility] Work Phone: Comment on above: Ordered: 02/05/2022 Bacteria identified in Urine by Culture BACTERIAL CULTURE, URINE Microbiology Routine UTI symptoms 09/07/2024 2:30 PM EDT [facility] Work Phone: Bacteria identified in Urine by Culture BACTERIAL CULTURE, URINE Microbiology Routine Urinary frequency Renal insufficiency 09/22/2024 2:51 PM EDT [facility] Work Phone: Bacteria identified in Urine by Culture BACTERIAL CULTURE, URINE Microbiology Routine Urinary tract infection with hematuria, site unspecified 10/26/2024 3:17 PM EDT [facility] Work Phone: Bacteria identified in Wound by Culture BACTERIAL CULTURE AND GRAM STAIN, ABSCESS AND WOUND (AEROBIC CULTURE) Microbiology Routine Seroma of breast 06/25/2024 1:52 PM T [facility] Work Phone: BREAST MARKERS BREAST MARKERS L ab Routine Malignant neoplasm of lower-outer quadrant of left breast of female, estrogen receptor positive (HCC) 07/19/2022 10:01 AM EDT [facility] Work Phone: End: 09-05-2023 CBC W Auto Differential panel - Blood CBC + DIFF Lab STAT Malignant neoplasm of lower-outer quadrant of left breast of female, estrogen receptor positive (HCC) 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) Every other week for 26 Occurrences starting 09/05/2022 until 09/05/2023 [facility] Work Phone: Comment on above: Every other week for 26 Occurrences star ting 09/05/2022 until 09/05/2023 End: 11-28-2023 CBC W Auto Differential panel - Blood CBC + DIFF Lab STAT Carcinoma of left breast metastatic to skin (HCC) Every other week for 30 Occurrences starting 11/28/2022 until 11/28/2023 [facility] Work Phone: Comment on above: Every other [...] for 26 Occurrences starting 09/05/2022 until 09/05/2023 [facility] Work Phone: Comment on above: Every other week for 26 Occurrences amy kaur 09/05/2022 until 09/05/2023 End: 11-28-2023 Comprehensive metabolic 2000 panel - Serum or Plasma COMP METABOLIC PANEL Lab STAT Carcinoma of left breast metastatic to skin (HCC) Every other week for 30 Occurrences starting 11/28/2022 until 11/28/2023 [facility] Work Phone: Comment on above: Every other week for 30 Occurrences amy kaur 11/28/2022 until 11/28/2023 CT angiography of coronary arteries [facility] CYSTATIN C CYSTATIN C Lab R outine LAXMI (acute kidney injury) (HCC) 12/26/2022 2:54 PM EDT [facility] Work Phone: End: 08-07-2023 ECG COMPLETE ECG COMPLETE ECG STAT Adenopathy 1 Occurrences starting 08/06/2022 until 08/07/2023 [facility] Work Phone: Comment on above: 1 Occurrences starting 08/06/2022 until 08/07/2023 End: 11-02-2023 ECG COMPLETE ECG COMPLETE ECG Routine Malignant neoplasm of lower-outer quadrant of left breast of female, estrogen receptor positive (HCC) Carcinoma of left breast metastatic to skin (HCC) 1 Occurrences starting 11/01/2022 until 11/02/2023 [facility] Work Phone: Comment on above: 1 Occurrences starting 11/01/2022 until 11/02/2023 End: 11-29-2023 ECG COMPLETE ECG COMPLETE ECG Routine Carcinoma of left breast metastatic to skin (HCC) Every other week for 2 Occurrences starting 11/28/2022 until 11/29/2023 [facility] Work Phone: Comment on above: Every other week for 2 Occurrences start ing 11/28/2022 until 11/29/2023 End: 08-04-2024 Echocardiography ECHO Cardiology Routine Chemotherapy-induced cardiomyopathy (HCC) Encounter for monitoring cardiotoxic drug therapy 1 Occurrences starting 08/05/2023 until 08/04/2024 [facility] Comment on above: 1 Occurrences starting 08/05/2023 until 08/04/2024 Injection procedure lymphangiography INJECTION PROCEDURE LYMPHANGIOGRAPHY Lymphedema PLASTICS A60 End: 11-28-2023 Magnesium [Mass/volume] in Serum or Plasma MAGNESIUM BLD Lab Routine Carcinoma of left breast metastatic to skin (HCC) Once per month for 6 Occurrences starting 11/28/2022 until 11/28/2023 [facility] Work Phone: Comment on above: Once per month for 6 Occurrences startin g 11/28/2022 until 11/28/2023 End: 03-28-2025 MG Breast - right Diagnostic for implant SAMANTHA DIAGNOSTIC RIGHT Radiology Routine Malignant neoplasm of lower-outer quadrant of left breast of female, estrogen receptor positive (HCC) 1 Occurrences starting 02/27/2024 until 03/28/2025 [facility] Work Phone: Comment on above: 1 Occurrences starting 02/27/2024 until 03/28/2025 End: 02-04-2025 MR Breast - bilateral WO and W contrast IV MRI BREAST WO/W IVCON BILATERAL Radiology Routine Malignant neoplasm of lower-outer quadrant of left breast of female, estrogen receptor positive (HCC) 1 Occurrences starting 01/06/2024 until 02/04/2025 [facility] Work Phone: Comment on above: 1 Occurrences starting 01/06/2024 until 02/04/2025 MR Breast - bilatera l WO and W contrast IV MRI BREAST WO/W IVCON BILATERAL Radiology Routine Malignant neoplasm of lower-outer quadrant of left breast of female, estrogen receptor positive (HCC) 02/18/2024 10:51 AM EST [facility] Work Phone: End: 08-02-2022 Mri brain brain stem w/o w/contrast material [facility] Work Phone: Comment on above: 1 Occurrences starting 08/02/2022 until 08/02/2022 End: 02-04-2025 MRI BREAST 3D POST PROCESSING MRI BREAST 3D POST PROCESSING Radiology Routine Malignant neoplasm of lower-outer quadrant of left breast of female, estrogen receptor positive (HCC) 1 Occurrences starting 01/06/2024 until 02/04/2025 [facility] Comment on above: 1 Occurrences starting 01/06/2024 until 02/04/2025 MRI BREAST 3D POST PROCESSING MRI BREAST 3D POST PROCESSING Radiology Routine Malignant neoplasm of lower-outer quadrant of left breast of female, estrogen receptor positive (HCC) 02/18/2024 10:54 AM EST [facility] End: 08-31-2023 MRI BREAST WO/W IVCON BILATERAL MRI BREAST WO/W IVCON BILATERAL Radiology Routine Malignant neoplasm of lower-outer quadrant of left breast of female, estrogen receptor positive (HCC) 1 Occurrences starting 08/01/2022 until 08/31/2023 [facility] Work Phone: Comment on above: 1 Occurrences [...] (HCC) 1 Occurrences starting 01/09/2023 until 02/08/2024 [facility] Work Phone: Comment on above: 1 Occurrences starting 01/09/2023 until 02/08/2024 OUTSIDE VENDOR CARDI AC OUTPATIENT EXTENDED RHYTHM RECORDING (WITHOUT TELEMETRY) OUTSIDE VENDOR CARDIAC OUTPATIENT EXTENDED RHYTHM RECORDING (WITHOUT TELEMETRY) Holter Routine Palpitations Ordered: 05/26/2024 [facility] Work Phone: Comment on above: Ordered: 05/26/2024 OUTSIDE VENDOR CARDI AC OUTPATIENT EXTENDED RHYTHM RECORDING (WITHOUT TELEMETRY) OUTSIDE VENDOR CARDIAC OUTPATIENT EXTENDED RHYTHM RECORDING (WITHOUT TELEMETRY) Holter Routine Palpitations Ordered: 07/15/2024 [facility] Work Phone: Comment on above: Ordered: 07/15/2024 Patient referral [facility] Work Phone: End: 09-03-2024 PET+CT Guidance for localization of tumor of Skull base to mid-thigh-- W 18F-FDG IV NM PET/CT SKULL-THIGH SUBSEQUENT Radiology Routine Malignant neoplasm of lower-outer quadrant of left breast of female, estrogen receptor positive (HCC) 1 Occurrences starting 08/05/2023 until 09/03/2024 [facility] Comment on above: 1 Occurrences starting 08/05/2023 [...] lymph node (HCC) 08/19/2023 8:16 AM EDT [facility] Work Phone: End: 12-10-2024 PET+CT Guidance for localization of tumor of Skull base to mid-thigh-- W 18F-FDG IV NM PET/CT SKULL-THIGH SUBSEQUENT Radiology Routine 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) 1 Occurrences starting 11/11/2023 until 12/10/2024 [facility] Comment on above: 1 Occurrences starting 11/11/2023 [...] (HCC) 1 Occurrences starting 01/06/2024 until 02/04/2025 [facility] Work Phone: Comment on above: 1 Occurrences [...] receptor positive (HCC) 04/06/2024 10:09 AM EST [facility] Work Phone: End: 05-13-2025 PET+CT Guidance for localization of tumor of Skull base to mid-thigh-- W 18F-FDG IV NM PET/CT SKULL-THIGH SUBSEQUENT Radiology Routine Malignant neoplasm of left breast in female, estrogen receptor positive, unspecified site of breast (HCC) 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 lymph node (HCC) 1 Occurrences starting 04/13/2024 until 05/13/2025 [facility] Work Phone: Comment on above: 1 Occurrences starting 04/13/2024 until 05/13/2025 End: 06-30-2024 PET+CT Guidance for localization of tumor of Skull base to mid-thigh-- W 18F-FDG IV [facility] Work Phone: Comment on above: 1 Occurrences [...] (HCC) 1 Occurrences starting 07/09/2024 until 08/08/2025 [facility] Work Phone: Comment on above: 1 Occurrences [...] (HCC) 1 Occurrences starting 10/30/2024 until 11/29/2025 [facility] Work Phone: Comment on above: 1 Occurrences starting 10/30/2024 until 11/29/2025 End: 11-28-2023 Phosphate [Mass/volume] in Serum or Plasma PHOSPHORUS INORGANIC Lab Routine 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 (HCC) Once per month for 6 Occurrences starting 11/28/2022 until 11/28/2023 [facility] Work Phone: Comment on above: Once per month for 6 Occurrences startin g 11/28/2022 until 11/28/2023 End: 02-28-2024 Radex spine thoracic 2 views XR THORACIC LIMITED 2V AP/LAT Radiology Routine Malignant neoplasm of lower-outer quadrant of left breast of female, estrogen receptor positive (HCC) 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) Abnormal positron emission tomography (PET) scan 1 Occurrences starting 01/29/2023 until 02/28/2024 [facility] Work Phone: Comment on above: 1 Occurrences starting 01/29/2023 until 02/28/2024 SARS-CoV-2 (COVID-19 ) RNA [Presence] in Respiratory specimen by EMILIA with probe detection SELF CHECK COVID Microbiology Routine Adenopathy Ordered: 08/06/2022 [facility] Work Phone: Comment on above: Ordered: 08/06/2022 SURGICAL PATHOLOGY SURGICAL PATH OLOGY Lab Routine Malignant neoplasm of lower-outer quadrant of left breast of female, estrogen receptor positive (HCC) 07/19/2022 10:01 AM EDT [facility] Work Phone: Tissue Pathology bio psy report [facility] Work Phone: Comment on above: Release Upon Ordering for 1 Occurrences starting 05/18/2024, 1 completed End: 12-12-2024 US Abdomen RUQ US ABD RIGHT UPPER QUADRANT Radiology Routine Right upper quadrant pain 1 Occurrences starting 11/13/2023 until 12/12/2024 [facility] Work Phone: Comment on above: 1 Occurrences starting 11/13/2023 until 12/12/2024 US Abdomen RUQ US ABD RIGHT UPP ER QUADRANT Radiology Routine Right upper quadrant pain 11/19/2023 11:01 AM EDT [facility] [facility] Work Phone: End: 08-18-2023 US BIOPSY BREAST LEFT US BIOPSY BREAST LEFT Radiology Routine Abnormal ultrasound of breast 1 Occurrences starting 07/19/2022 until 08/18/2023 [facility] Work Phone: Comment on above: 1 Occurrences starting 07/19/2022 until 08/18/2023 End: 08-03-2023 US BREAST LTD LEFT US BREAST LTD LEFT Radiology Routine Malignant neoplasm of lower-outer quadrant of left breast of female, estrogen receptor positive (HCC) 1 Occurrences starting 07/04/2022 until 08/03/2023 [facility] Work Phone: Comment on above: 1 Occurrences starting 07/04/2022 until 08/03/2023 End: 08-02-2025 US Thyroid gland US THYROID/PARATHYROID Radiology Routine Thyroid nodule 1 Occurrences starting 07/03/2024 until 08/02/2025 [facility] Work Phone: Comment on above: 1 Occurrences starting 07/03/2024 until 08/02/2025 US Thyroid gland US THYROID/PARA THYROID Radiology Routine Thyroid nodule 07/08/2024 11:41 AM EDT [facility] Work Phone: End: 05-10-2025 US Upper extremity vein - left US DVT UPPER LEFT Radiology Routine Malignant neoplasm of left breast in female, estrogen receptor positive, unspecified site of breast (HCC) Swelling of limb 1 Occurrences starting 04/10/2024 until 05/10/2025 [facility] Comment on above: 1 Occurrences starting 04/10/2024 until 05/10/2025 End: 04-10-2025 US Upper extremity veins US ARM VEIN DVT UNL VAS LAB Vascular Lab Routine Malignant neoplasm of left breast in female, estrogen receptor positive, unspecified site of breast (HCC) 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) Swelling of limb 1 Occurrences starting 04/10/2024 until 04/10/2025 [facility] Work Phone: Comment on above: 1 Occurrences [...] Work Phone: [facility] Work Phone: [facility] Immunizations Immunization Date Immunization Notes Care Provider Fa [facility] 2023 influenza, seasonal, injectable Bianca Addison RN [facility] 2023 influenza virus vaccine, unspecified formulation Tatianna Crook [facility] Work Phone: [facility] 02-19-2022 influenza, injectabl e, quadrivalent, contains preservative Jacinta Rivas MD Work Phone: [facility] 02-19-2022 pneumococcal (PCV20) vaccine, 20 valent (PREVNAR 20) Jacinta Rivas MD Work Phone: [facility] 02-19-2022 pneumococcal Conjugate, unspecified formulation Jacinta Rivas MD Work Phone: [facility] Work Phone: 02-19-2022 influenza virus vaccine, unspecified formulation Serena Carrasco DO Work Phone: [facility] 02-13-2021 influenza, injectabl e, quadrivalent, contains preservative Serena Sandhui DO Work Phone: [facility] 01-27-2020 influenza, injectabl e, quadrivalent, preservative free Serena Masci DO Work Phone: [facility] Payers Date Payer Category Payer Self-pay [id number] 2024 Medicare [id number] 2023 Medicare [id number] 2023 Medicare [id number] 2021 Unknown 2021 Unknown [employer] PPO [id number] 2021-Present [phone] [address] [place] [address] PPO [id number] 2021 Unknown [id number] 2014 Private Health Insurance [id number] Private Health Insurance [id number] Unknown [id number] Unknown [id number] Unknown [id number] Unknown [id number] Unknown [id number] Unknown [id number] Social History Date Type Detail Facility Start: 02-10-2020 End: 08-23-2022 Alcohol Use Never smoker [facility] Work Phone: Comment on above: Occasional alcohol u se 0-1 QD 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 [facility] Work Phone: Comment on above: 08/29/11 Start: 04-19-2017 End: 10-14-2024 Tobacco smoking status NMIS Never smoked tobacco [facility] Start: 04-19-2017 End: 10-14-2024 Tobacco use and exposure Smokeless tobacco non-user [facility] Start: 02-15-2021 End: 10-30-2024 Alcohol intake Current drinker of alcohol (finding) [facility] Start: 02-11-2020 End: 03-01-2020 History SDOH Alcohol Frequency 2 [facility] Start: 02-11-2020 End: 03-01-2020 History SDOH Alcohol Std Drinks 1 [facility] Start: 02-23-2019 History SDOH Alcohol Comment occasional [facility] Start: 02-11-2020 History SDOH Social Connections Phone 5 [facility] Start: 02-11-2020 History SDOH Social Connections Voodoo 3 [facility] Start: 02-11-2020 History SDOH Physica l Activity DPW 6 [facility] Start: 02-10-2020 Education 18 [facility] Start: 1960 Sex Assigned At Not on file C [facility] Start: 11-29-2020 End: 02-19-2022 Exposure to SARS-CoV-2 (event) Not sure [facility] Start: 08-27-2021 End: 09-06-2021 Exposure to SARS-CoV-2 (event) Unable to assess [facility] Work Phone: Start: 04-23-2017 End: 07-08-2023 Tobacco smoking status NMIS Unknown if ever smoked [facility] Start: 1960 Sex Assigned At Female [facility] Start: 02-10-2020 End: 08-23-2022 Social connection and isolation panel [facility] Do you belong to any clubs or organizations such as temple groups, unions, fraternal or athletic groups, or school groups? Yes [facility] Are you now , , , , never or living with a partner? [facility] How often to you hav e a drink containing alcohol? Monthly or less [facility] How many standard drinks containing alcohol do you have on a typical day? 1 or 2 [facility] How often do you hav e 6 or more drinks on 1 occasion? Never [facility] How hard is it for y ou to pay for the very basics like food, housing, medical care, and heating Not hard at all [facility] Do you feel stress - tense, restless, nervous, or anxious, or unable to sleep at night because your mind is troubled all the time - these days [OSQ] To some extent [facility] The food that (I/we) bought just didn't last, and (I/we) didn't have money to get more. Never true [facility] In the past 12 month s, was there a time when you were not able to pay the mortgage or rent on time? No [facility] Start: 05-04-2024 Alcohol Comment 2 drinks per month [facility] NEGATED: Highlighted rowStart: NINF History of tobacco use Passive smoker [facility] Medical Equipment Procedure Code Equipment Code Equipment Origin al Text Equipment Identifier Dates Matrix Alloderm Thick Acellular Dermis [id number] Tissue Allograft - [id number] Start: 10-08-2017 Trident Solidbac k Acetabular Shell 52mm E [id number] Start: 03-20-2019 Liner 36mm 0d E X3 5.9mm Acetabular Hip - [id number] Start: 03-20-2019 Head V40 36mm 0m m Offset Taper Biolox Delta Femoral Hip - [id number] Start: 03-20-2019 Stem Accolade Ii 4 127d Femoral - [id number] Start: 03-20-2019 Imp Brst 405cc S sm Lorraine Inspr - [id number] Start: 10-08-2017 Implant Dina Inspira Low Profile Silicone Breast Smooth Shell Surface - [id number] Start: 08-29-2018 Comment on above: Description: Natrell e inspira breast implant, smooth round low profile 230 cc PORT,6FR POWER PORT FDA Start: 04-24-2017 PORT,6FR POWER PORT FDA Start: 04-24-2017 [id number], [id number], [id number], [id number], [id number] Start: 07-18-2023 End: 08-10-2024 Comment on above: Use with blood gluco se test two times a day. Insulin Dep? No Use with blood gluco se test two times a day. Insulin Dep? No E11.65 PORT,6FR POWER PORT FDA Start: 04-24-2017 Functional Status Date Assessment Result Facility 05-07-2024 Total score [AUDIT-C] 1 05/07/19 2:27 PM EST User, [email or web address] [facility] 05-07-2024 Within the last year , have you been humiliated or emotionally abused in other ways by your partner or ex-partner? No 05/07/2024 2:27 PM EST User, [email or web address] No [facility] 05-07-2024 Within the last year , have you been afraid of your partner or ex-partner? No 05/07/2024 2:27 PM EST User, [email or web address] No [facility] 05-07-2024 Within the last year , have you been raped or forced to have any kind of sexual activity by your partner or ex-partner? No 05/07/2024 2:27 PM EST User, [email or web address] No [facility] 05-07-2024 Within the last year , have you been kicked, hit, slapped, or otherwise physically hurt by your partner or ex-partner? No 05/07/2024 2:27 PM EST User, [email or web address] No [facility] 05-07-2024 How often to you hav e a drink containing alcohol? Monthly or less 05/07/2024 2:27 PM EST User, [email or web address] Monthly or less [facility] 05-07-[address] inks containing alcohol do you have on a typical day? 1 or 2 05/07/2024 2:27 PM EST User, [email or web address] 1 or 2 [facility] 05-07-2024 How often do you hav e 6 or more drinks on 1 occasion? Never 05/07/2024 2:27 PM EST User, [email or web address] Never [facility] 03-21-2019 Are you deaf, or do you have serious difficulty hearing No 03/21/2019 1:43 PM Rosendo Henry RN No [facility] 03-21-2019 Are you blind, or do you have serious difficulty seeing, even when wearing glasses No 03/21/2019 1:43 PM Rosendo Henry RN No [facility] 03-21-2019 Do you have serious difficulty walking or climbing stairs Yes 03/21/2019 1:43 PM Rosendo Henry RN Yes [facility] 03-21-2019 Do you have difficul ty dressing or bathing Yes 03/21/2019 1:43 PM Rosendo Henry, FE Yes [facility] 03-21-2019 Because of a physica l, mental, or emotional condition, do you have difficulty doing errands alone such as visiting a physician's office or shopping Yes 03/21/2019 1:43 PM Rosendo Henry RN Yes [facility] Mental Status Date Assessment Result Facility 03-21-2019 Because of a physica l, mental, or emotional condition, do you have serious difficulty concentrating, remembering, or making decisions No 03/21/2019 1:43 PM Rosendo Henry RN No [facility] Clinical Notes 01-03-2021 to 11-11-2024 Telephone Encounter - Saadia Gonsales - 11/06/2024 10:54 AM EDTTelephone Encounter - Saadia Gonsales - 11/06/2024 10:54 AM EDTTelephone Encounter - Saadia Gonsales - 11/06/2024 10:42 AM EDTPatient Instructions Note Date & Type Note Facility 11-11-2024 Note HNO ID: [id number] Author: MILAGROS BROWN, PT Service: ? Author [...] Patient to be seen for Therapeutic exercise (34566), Manual therapy (28902), Self-long term management (16895), Patient/Family/Caregiver Education, Therapeutic activities (85105) (lymphedema program) PLAN FOR NEXT VISIT: lymphedema program SUBJECTIVE: no pump yet, trying to figure out order. pump people say they sent it but doctor hasn't received it. needs the pump before she leaves for [place]. having lymph dye test tomorrow. Asked if [...] and goals. Deyvi (more content not included)... [facility] 11-06-2024 Telephone encounter Note Images from the original note were not included. tirzepatide (MOUNJARO) 2.5 mg/0.5 mL pen injector has been approved [facility] SUBHASH HURLEY Prior Sewing Machine Repairer [facility]ocrinology & Metabolism [facility] 11-06-2024 Miscellaneous Notes Images from the original note were not included. tirzepatide (MOUNJARO) 2.5 mg/0.5 mL pen injector has been approved Notified patient through mychart SUBHASH HURLEY Prior Sewing Machine Repairer III [facility] Endocrinology & Metabolism Initiated PA for tirzepatide (MOUNJARO) 2.5 mg/0.5 mL pen injector through [employer] via [employer] Clinical notes and labs attached Questions Completed Waiting for determination SUBHASH HURLEY Prior Sewing Machine Repairer III [facility] Endocrinology & Metabolism documented in this encounter [facility] 11-06-2024 Telephone encounter Note Initiated PA for tirzepatide (MOUNJARO) 2.5 mg/0.5 mL pen injector through [employer] via [employer] Clinical notes and labs attached Questions Completed Waiting for determination SUBHASH HURLEY Prior Sewing Machine Repairer [facility] Endocrinology & Metabolism [facility] 11-06-2024 Note HNO ID: [id number] Author: NOE JACKSON PTA Service: ? Author Type: Cashier Tube Room Type: Progress Notes Filed: 11/06/2024 10:50 Note [...] taking it with her on vacation to [facility]. Was riding her bike yesterday and took [...] taking it with her on vacation to [facility]. Was riding her bike yesterday and took [...] Noe Jackson PTA documented in this encounter [facility] 11-05-2024 Telephone encounter Note . [facility] 11-05-2024 Miscellaneous Notes . documented in this encounter [facility] 11-04-2024 Note HNO ID: [id number] Author: NOE JACKSON PTA Service: ? Author Type: Cashier Tube Room Type: Progress Notes Filed: 11/04/2024 11:55 Note [...] Noe Jackson PTA documented in this encounter [facility] 10-30-2024 Note HNO ID: [id number] Author: NOE JACKSON PTA Service: ? Author Type: Cashier Tube Room Type: Progress Notes Filed: 10/30/2024 15:55 Note [...] FOR NEXT VISIT: Continue with MLD SUBJECTIVE: [place] good after last session and by night [...] FOR NEXT VISIT: Continue with MLD SUBJECTIVE: [place] good after last session and by night [...] Noe Jackson PTA documented in this encounter [facility] 10-30-2024 Note [facility] 10-30-2024 History of Present illness Narrative Diagnosis: 1) Breast cancer. HPI: The patient is a 64-year-old female who has a past medical history significant for hypertension and primary biliary cirrhosis. 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 Most recent liver chemistries performed at [facility] on 01/10/2017 showed a total bilirubin of [...] Evidently she was on a trip to [place] about 2 1/2 years ago when she [...] greatest length). ER (clone 6F11) >95%, strong GA (clone 16/1E2) >95%, strong Her-2Neu (clone CB11) [...] Previously performed (HER2) ERBB2 Status: Previously performed Lace Weaver Tumor Block: Specify: B3 Residual tumor burden: Tumor bed dimension #1: 8 mm Tumor bed dimension #2: 5 mm Overall tumor cellularity 50% Percentage in situ 3% Comment: Please see [id number] for the results of estrogen and progesterone receptors and HER2 studies. 3) [facility] Stopped 08/2022. Metastatic disease. Had [...] was performed on block A1 at the [facility] and compared to appropriate reactive controls. The [...] everolimus second week April 2023. Was at [facility]. Had PET scan on 05/02. Demonstrated stable [...] was discussed with the patient or authorized parts representative. The patient or authorized parts representative has agreed to proceed with the [...] internal mammary merlyn involvement) MX stage IIIC ER/GA positive, HER2 non overexpressed invasive ductal carcinoma of the right breast. -KPS is 100%. -PET scan indicated disease left chest wall and mediastinal lymph nodes. -MRI brain negative. -Biopsy-proven disease recurrence left chest wall inferior and posterior to implant. -ER positive (99% strong staining intensity), GA positive (2% with strong staining intensity), HER2 2+; nonamplified by FISH testing. 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 -MRI Breast 03/28/2023 demonstrated PD and therapy was rotated to Faslodex and Afinitor. Oncology at [facility] recommended exemestane with Afinitor. -Symptomatically tolerating well. [...] monitor blood pressures to share with her mobility specialist and PCP. Plan: -Continue follow up with cardiology. (I89.0) Lymphedema of left arm Assessment: -Recurrent. -Seeing PT in [place]. Is to get home lymphatic pump. Plan: - Follow-up with physical therapy. HTN -Rx HCTZ 12.5 mg tablets. Portions of this documentation were copied and pasted from my previous office visit note dated 07/09/2024 in order to provide a cohesive continuity of the history. The note has been reviewed and edited and updated as necessary. Serena Carrasco DO documented in this encounter [facility] 10-28-2024 Note HNO ID: [id number] Author: NOE JACKSON PTA Service: ? Author Type: Cashier Tube Room Type: Progress Notes Filed: 10/28/2024 16:36 Note [...] post MLD this date. Reached out to [facility] for pump to check in on status of coverage for pump as well as assisted pt with direct contact of pt oracle obiee developer to schedule lymphangiography as doctor requested. The patient will continue to benefit from ongoing skilled physical therapy to progress toward set goals. PLAN FOR NEXT VISIT: Continue with MLD SUBJECTIVE: By night time her arm is pretty stiff. Having a difficult time flexing her wrist and supinating her forearm, feels tight and tender to do this. Went to industry analyst, they said the redness is stagnant [...] and assessment of patient's response to intervention. Self-Fdc Management: 2: Assisted pt with direct contact with pt oracle obiee developer from [facility] for lymphangiography procedure, as [...] assisted pt with direct contact of pt oracle obiee developer to schedule lymphangiography as doctor requested. The patient will continue to benefit from ongoing skilled physical therapy to progress toward set goals. PLAN FOR NEXT VISIT: Continue with MLD SUBJECTIVE: By night time her arm is pretty stiff. Having a difficult time flexing her wrist and supinating her forearm, feels tight and tender to do this. Went to industry analyst, they said the redness is stagnant [...] and assessment of patient's response to intervention. Self-Fdc Management: 2: Assisted pt with direct contact with pt oracle obiee developer from [facility] for lymphangiography procedure, as well as [facility] for pump Skilled Intervention: Skilled judgment in [...] Noe Jackson PTA documented in this encounter [facility] 10-26-2024 Note [facility] 10-26-2024 History of Present illness Narrative [...] in AM and 2 tablets in PM) [employer] FinancialTOUCH ULTRA PLUS TEST strp 1 Each two [...] arms trunk neck face, itching Chills Tolerates [facility] ACTIVE PROBLEM LIST Gastroesophageal Reflux Disease - 05/04/2024 Type 2 Diabetes Mellitus Without Complication, With Long-Term Current Use of Insulin ([facility]) - 05/04/2024 Lymphedema of Left Arm - [...] Comment: Added automatically from request for surgery [id number] Stomatitis and Mucositis - 06/28/2017 Antineoplastic Chemotherapy [...] any further strain on kidneys. Recording using Neura software for draft documentation of the visit was discussed with the patient/authorized parts representative; all questions welcomed and answered. Patient/authorized parts representative agreed to proceed Portions of this [...] appointment.. TEZ Ugalde documented in this encounter [facility] 10-26-2024 History of Present illness Narrative RADIOLOGY [...] PATIENT PRESENTS WITH AN IMPLANTABLE OR ATTACHED BAND INSTRUMENT MAKER: No CREATININE: Creatinine Date Value Ref Range [...] safety can be found using this link: [email or web address] [email or web address] %[email or web address] SIGNATURE: PATRICIA Ying) PATIENT NAME: Pat Sorto DATE: October 26, 2024 TIME: 9:47 AM PAGER/CONTACT #: documented in this encounter [facility] 10-26-2024 Note HNO ID: [id number] Author: MYLA DO RT (R) Service: Nuclear [...] PATIENT PRESENTS WITH AN IMPLANTABLE OR ATTACHED BAND INSTRUMENT MAKER: No CREATININE: Creatinine Date Value Ref Range [...] DIAGNOSTIC CT PERFORMED: No IV SITE: Ambulatory: AK only - direct IV injection in the Right antecubital site POST EXAM PIV STATUS: Discontinued PROCEDURE TYPE: NM INJECT: PET/CT BODY SCAN. 10.9 mCi F18 FDG. Administered By: mo . No other medications given.. ADMINISTRATION TIME: 941 PATIENT DISCHARGED TO: Ambulatory patient, left AK department area. Is this a therapy: No A Diagnostic radioactive procedure has taken place, with no further precautions necessary other than routine body substance precautions. More information regarding radiation safety can be found using this link: [email or web address] [email or web address] 20Diagnostic%20Nuclear%20Medicine% 20Procedures.pdf SIGNATURE: RT Deonna(R) PATIENT NAME: Pat Sorto DATE: October 26, 2024 TIME: 9:47 AM PAGER/CONTACT #: [facility] 10-22-2024 Note HNO ID: [id number] Author: NOE JACKSON PTA Service: ? Author Type: Cashier Tube Room Type: Progress Notes Filed: 10/22/2024 15:55 Note [...] and assessment of patient's response to intervention. Self-Fdc Management: 1: Education on wearing sleeve for [...] 1426 Session Stop Time : 1508 Noe RobbylindenCILFF [facility] 10-22-2024 History of Present illness Narrative Episode [...] and assessment of patient's response to intervention. Self-Fdc Management: 1: Education on wearing sleeve for [...] Noe Jackson PTA documented in this encounter [facility] 10-21-2024 Note HNO ID: [id number] Author: NOE JACKSON PTA Service: ? Author Type: Cashier Tube Room Type: Progress Notes Filed: 10/21/2024 16:37 Note [...] procedure scheduled. Has not heard from the oracle obiee developer yet. Her arm is not worse. Is [...] procedure scheduled. Has not heard from the oracle obiee developer yet. Her arm is not worse. Is [...] Noe Jackson PTA documented in this encounter [facility] 10-15-2024 Instructions Mino Beard APRN.SECURITY GUARD DISPATCHER - 10/15/2024 4:12 PM EDT - Continue [...] - Expect a call from Giana, the certified surgical tech/first assistant, to set up your indocyanine green (ICG) [...] needed, surgical support. documented in this encounter [facility] [place] [facility] 10-15-2024 Note [facility] 10-15-2024 History of Present illness Narrative [...] (HCC) followed by Dr. Husam Hart in [place] PAST SURGICAL HISTORY Procedure Laterality Date ARTHRP ACETBLR/PROX FEM PROSTC AGRFT/ALGRFT Right 03/20/2019 Hip replacement, total ARTHRP KNE CONDYLE&PLATU MEDIAL&LAT COMPARTMENTS Left 02/2016 BIOPSY BREAST OPEN INCISIONAL Left 2007 [facility] benign pathology per patient BREAST RECONSTRUCTION Left [...] tablet by mouth at bedtime as needed. [employer] FinancialTOUCH ULTRA PLUS TEST strp 1 Each two [...] visualize lymphatic drainage. - Scheduled ICG lymphography; certified surgical tech/first assistant Giana will contact the patient to arrange [...] - Patient is planning to travel to [facility] in five weeks; advised maintaining compression and [...] October 15, 2024 documented in this encounter [facility] [place] [facility] 10-15-2024 Note HNO ID: [id number] Author: NOE JACKSON PTA Service: ? Author Type: Cashier Tube Room Type: Progress Notes Filed: 10/15/2024 16:31 Note [...] Noe Jackson PTA documented in this encounter [facility] [place] [facility] 10-14-2024 History of Present illness Narrative OFFICE [...] going to be seeing PharmD Was in [place], a lot of walking, different diet Sugars [...] 02/2016 BIOPSY BREAST OPEN INCISIONAL Left 2007 [facility] benign pathology per patient BREAST RECONSTRUCTION Left [...] changes at this time Recommend see ENDO IT ARCHITECTURE CONSULTANT, patient is interested ENDOCRINOLOGY IT ARCHITECTURE CONSULTANT ORDER placed for patient Recommended diet: Low [...] Daisy Titus CNP documented in this encounter [facility] [place] [facility] 10-14-2024 Note [facility] 10-13-2024 Note [facility] 10-13-2024 History of Present illness Narrative [...] tablet by mouth at bedtime as needed. 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 Recording using Neura software for draft documentation of the visit was discussed with the patient/authorized parts representative; all questions welcomed and answered. Patient/authorized parts representative agreed to proceed Portions of this [...] appointment.. TEZ Ugalde documented in this encounter [facility] [place] [facility] 10-13-2024 Telephone encounter Note E. coli numbers are reduced from previous. If she wants to be checked for arm infection would recommend a visit. Would not expect a UTI to cause an arm infection. Has OV today, can discuss at OV. [facility] [place] [facility] 10-13-2024 Miscellaneous Notes E. coli numbers are [...] Negative Negative Ketones, Urine Negative Negative Specific [place], Ur 1.005 - 1.030 1.017 Hemoglobin/Blood,Ur Negative [...] mL/min/1.73m 30 (L) documented in this encounter [facility] [place] [facility] 10-13-2024 History of Present illness Narrative Program_ID:[id number] Access Code: [email or web address] URL: [email or web address] Date: 10-13-2024 Prepared By: Bobbi Vanegas Program [...] and assessment of patient's response to intervention. Self-Fdc Management: 1: Discussion and education regarding potential [...] Program Assigned: 1: Access Code: [email or web address] URL: [email or web address] Date: 10/13/2024 Prepared by: SHIRLEY Posada Exercises [...] Noe Jackson PTA documented in this encounter [facility] [place] [facility] 10-13-2024 Note HNO ID: [id number] Author: NOE JACKSON PTA Service: ? Author Type: Cashier Tube Room Type: Progress Notes Filed: 10/13/2024 11:17 Note [...] and assessment of patient's response to intervention. Self-Fdc Management: 1: Discussion and education regarding potential [...] Program Assigned: 1: Access Code: [email or web address] URL: [email or web address] Date: 10/13/2024 Prepared by: SHIRLEY Posada Exercises [...] Please call and advise. Serenity Vilchis RN [facility] [place] [facility] 10-12-2024 Telephone encounter Note Labs look like [...] 1.06 (H) 0.58 - 0.96 mg/dL Final [facility] [place] [facility] 10-12-2024 Telephone encounter Note Patient calls and states that she had urinalysis and blood work done last week. Patient is asking about the results. Latest Ref Rng 10/07/2024 Color Yellow Yellow Clarity Clear Clear Glucose, Urine Negative Negative Bilirubin, Urine Negative Negative Ketones, Urine Negative Negative Specific [place], Ur 1.005 - 1.030 1.017 Hemoglobin/Blood,Ur Negative [...] mmol/L 12 eGFR >=60 mL/min/1.73m 30 (L) [facility] [place] [facility] 10-12-2024 Note HNO ID: [id number] Author: MILAGROS BROWN, PT Service: ? Author [...] Patient to be seen for Therapeutic exercise (63144), Manual therapy (55732), Self-long term management (67835), Patient/Family/Caregiver Education, Therapeutic activities (29786) (lymphedema program) PLAN FOR NEXT VISIT: lymphedema program SUBJECTIVE: Feels like it is getting worse - more tender, more swelling, reddened along inside of left arm. Pain 5/10. Decrease demi chef, difficult to grab things due to swelling. [...] Lymph Node Remova (more content not included)... [facility] 10-12-2024 History of Present illness Narrative Images [...] Patient to be seen for Therapeutic exercise (56438), Manual therapy (40578), Self-long term management (76699), Patient/Family/Caregiver Education, Therapeutic activities (55155) (lymphedema program) PLAN FOR NEXT VISIT: lymphedema program SUBJECTIVE: Feels like it is getting worse - more tender, more swelling, reddened along inside of left arm. Pain 5/10. Decrease demi chef, difficult to grab things due to swelling. [...] Milagros Brown PT documented in this encounter [facility] [place] [facility] 10-07-2024 History of Present illness Narrative Primary Care Pharmacy Visit CC (Reason for Consult): (E11.9) Type 2 diabetes mellitus without complication, unspecified whether senior living insulin use (HCC) (primary encounter diagnosis) Goal(s): A1c <8% per consult Last Collaborating Provider Visit: 09/22/24 with SONIDO Holderkey oSrto is a 64 year old female presenting for follow up visit telephone call. Patient consents to pharmacy collaborative practice agreement. Last Pharmacy Visit: 09/08/24 - Lantus increased to 30 units HPI: Reports doing well States BGs have been better in last week Reports BGs had been high for awhile, got back from [place] and has been better. Was walking a lot while in [place] Reports symptoms of hyperglycemia has improved, not [...] 2 diabetes mellitus without complication, unspecified whether long term care administrator insulin use (HCC) - ICD9: 250.00, ICD10: [...] Tatianna Crook, PharmD, BCACP Primary Care Clinical Supervisor [employer] documented in this encounter [facility] [place] [facility] 10-07-2024 Note [facility] 10-06-2024 Telephone encounter Note Faxed and scanned [facility] [place] [facility] 10-06-2024 Miscellaneous Notes Faxed and scanned Images from the original note were not included. Katie Carter RN You15 hours ago (5:11 PM) BIRDIE Yes, okay to sign Received an order from [employer], scanned into chart. OK to sign? documented in this encounter [facility] [place] [facility] 10-06-2024 Telephone encounter Note Images from the original note were not included. Katie Carter RN You15 hours ago (5:11 PM) BIRDIE Yes, okay to sign [facility] [place] [facility] 10-05-2024 Telephone encounter Note See MyChart reply [facility] [place] [facility] 10-05-2024 Miscellaneous Notes See MyChart reply documented in this encounter [facility] [place] [facility] 10-05-2024 Telephone encounter Note Received an order from [employer], scanned into chart. OK to sign? [facility] [place] [facility] 09-25-2024 Telephone encounter Note Pt called back in and was asking if the e coli could be spread to other people since she will be going on vacation. I told her I don't believe it can be, but she needs to make sure to use good hygiene practices like wiping from front to back. Please send a Numblebee message to Pt with reply. Serenity Vilchis RN [facility] [place] [facility] 09-25-2024 Miscellaneous Notes Pt called back in and was asking if the e coli could be spread to other people since she will be going on vacation. I told her I don't believe it can be, but she needs to make sure to use good hygiene practices like wiping from front to back. Please send a Numblebee message to Pt with reply. Serenity Vilchis RN Pt called and is notified of providers message and instructions. Pt voices understanding. She states she will be leaving tomorrow for a week in [place]. Serenity Vilchis RN Please let her know [...] Jacinta Rivas MD documented in this encounter [facility] [place] [facility] 09-25-2024 Telephone encounter Note Pt called and is notified of providers message and instructions. Pt voices understanding. She states she will be leaving tomorrow for a week in [place]. Serenity Vilchis RN [facility] [place] [facility] 09-25-2024 Telephone encounter Note Please let her [...] on how she is feeling. Reviewed with Jacnita Rivas MD [facility] [place] [facility] 09-24-2024 Telephone encounter Note I got patient scheduled with Dr. Annabel Carter on 10/28/2024 @ 11:00. Patient is aware and will arrive at 10:45. Referral faxed. Svetlana Kong LPN [facility] [place] [facility] 09-24-2024 Miscellaneous Notes I got patient scheduled [...] currently scheduled for first available within the [facility] [place] [facility] November 17 in [place]. Patient was concerned she needs to be seen sooner than this. Please review and advise. Morenita Boyd September 24, 2024 12:46 PM documented in this encounter [facility] [place] [facility] 09-24-2024 Telephone encounter Note Nel Day placed a referral to nephrology yesterday. Svetlana Kong LPN [facility] [place] [facility] 09-24-2024 Telephone encounter Note Patient calling in stating Dr. Carrasco would like her to see Nephrology for abnormal kidney labs. If appropriate, please place order. Patient is currently scheduled for first available within the [facility] [place] [facility] November 17 in [place]. Patient was concerned she needs to be seen sooner than this. Please review and advise. Morenita Boyd September 24, 2024 12:46 PM [facility] [place] [facility] 09-24-2024 Telephone encounter Note Patient notified of results and provider's instructions. Please let the patient know the ultrasound of her kidneys was normal. Culture results still pending. Dr. Carrasco recommends referral to nephrology LANE, please assist patient in scheduling or fax consult order if she prefers to stay local Nel Day APRN.CNP Patient verbalizes understanding. Karyn Truong RN [facility] [place] [facility] 09-24-2024 Miscellaneous Notes Patient notified of results and provider's instructions. Please let the patient know the ultrasound of her kidneys was normal. Culture results still pending. Dr. Carrasco recommends referral to nephrology LANE, please assist patient in scheduling or fax consult order if she prefers to stay local Nel Day APRN.SONIDO Patient verbalizes understanding. Karyn Truong RN documented in this encounter [facility] [place] [facility] 09-24-2024 Note HNO ID: [id number] Author: NOE JACKSON PTA Service: ? Author Type: Cashier Tube Room Type: Progress Notes Filed: 09/24/2024 12:41 Note [...] and assessment of patient's response to intervention. Self-Fdc Management: 1: Discussion/education/reminders on wearing garments during [...] Stop Time : 1030 Noe Jackson PTA [facility] 09-24-2024 History of Present illness Narrative Episode [...] and assessment of patient's response to intervention. Self-Fdc Management: 1: Discussion/education/reminders on wearing garments during [...] Noe Jackson PTA documented in this encounter [facility] [place] [facility] 09-23-2024 History of Present illness Narrative Radiology [...] PATIENT PRESENTS WITH AN IMPLANTABLE OR ATTACHED BAND INSTRUMENT MAKER: No RADIOLOGY DEPARTMENT: Ultrasound PERIPHERAL IV DATA: Not applicable SIGNED BY: TECHNOLOGIST Brayden September 23, 2024 4:17 PM documented in this encounter [facility] [place] [facility] 09-23-2024 Note HNO ID: [id number] Author: TYE NEGRON TECHNOLOGIST Service: ? Author [...] PATIENT PRESENTS WITH AN IMPLANTABLE OR ATTACHED BAND INSTRUMENT MAKER: No RADIOLOGY DEPARTMENT: Ultrasound PERIPHERAL IV DATA: Not applicable SIGNED BY: Tye Negron, TECHNOLOGIST September 23, 2024 4:17 PM [facility] 09-22-2024 Note [facility] 09-22-2024 History of Present illness Narrative CC: Patient presents with: Recheck: UTI HPI Recording using Neura software for draft documentation of the visit was discussed with the patient/authorized parts representative; all questions welcomed and answered. Patient/authorized parts representative agreed to proceed Pat Sorto is [...] emesis. Pat is scheduled to travel to [place] on Saturday and expresses a desire to [...] (HCC) followed by Dr. Husam Hart in [place] PAST SURGICAL HISTORY Procedure Laterality Date ARTHRP ACETBLR/PROX FEM PROSTC AGRFT/ALGRFT Right 03/20/2019 Hip replacement, total ARTHRP KNE CONDYLE&PLATU MEDIAL&LAT COMPARTMENTS Left 02/2016 BIOPSY BREAST OPEN INCISIONAL Left 2007 [facility] benign pathology per patient BREAST RECONSTRUCTION Left [...] tablet by mouth at bedtime as needed. [employer]avacUCH ULTRA PLUS TEST strp 1 Each two [...] Patient agreeable to treatment plan. Nel Day APRN.SECURITY GUARD DISPATCHER documented in this encounter [facility] [place] [facility] 09-22-2024 Telephone encounter Note Pt reports she [...] cloudy. Scheduled same day appt with Nel. [facility] [place] [facility] 09-22-2024 Miscellaneous Notes Pt reports she has [...] appt with Nel. documented in this encounter [facility] [place] [facility] 09-22-2024 Note HNO ID: [id number] Author: NOE JACKSON PTA Service: ? Author Type: Cashier Tube Room Type: Progress Notes Filed: 09/22/2024 11:38 Note [...] and assessment of patient's response to intervention. Self-Fdc Management: 1: Discussion and recommendation on potentially [...] Session Stop Time : 1113 Noe JacksonCLIFF [facility] 09-22-2024 History of Present illness Narrative Episode [...] and assessment of patient's response to intervention. Self-Fdc Management: 1: Discussion and recommendation on potentially [...] Noe Jackson PTA documented in this encounter [facility] [place] [facility] 09-11-2024 Note HNO ID: [id number] Author: NOE JACKSON PTA Service: ? Author Type: Cashier Tube Room Type: Progress Notes Filed: 09/11/2024 11:52 Note [...] 5 for comfort arm sleeve made by [employer]. Measuring in size 3 of the harmony [...] and assessment of patient's response to intervention. Self-Fdc Management: 1: Discussion on garments and rationale [...] Stop Time : 0950 Noe Jackson PTA [facility] 09-11-2024 History of Present illness Narrative Episode [...] 5 for comfort arm sleeve made by [employer]. Measuring in size 3 of the harmony [...] and assessment of patient's response to intervention. Self-Fdc Management: 1: Discussion on garments and rationale [...] Noe Jackson PTA documented in this encounter [facility] [place] [facility] 09-10-2024 Telephone encounter Note Patient returned call and went over results, notes from Cathy Burr PROJECT SYSTEMS ENGINEER with understanding. Aware rx sent to the pharmacy. [facility] [place] [facility] 09-10-2024 Miscellaneous Notes Patient returned call and went over results, notes from Cathy Burr PROJECT SYSTEMS ENGINEER with understanding. Aware rx sent to the pharmacy. Phoned patient left message to return call and ask to speak to a nurse. ----- Message from Cathy Hopson APRN.LOGISTICS TEAM LEADER sent at 09/10/2024 11:16 AM EDT ----- [...] to [facility]. documented in this encounter [facility] [place] [facility] 09-10-2024 Telephone encounter Note Phoned patient left message to return call and ask to speak to a nurse. [facility] [place] [facility] 09-10-2024 Telephone encounter Note ----- Message from Cathy Hopson APRN.CNS sent at 09/10/2024 11:16 AM EDT ----- E. coli bacteria present, culture shows resistance to ciprofloxacin and Bactrim. If still having symptoms would recommend switching to Macrobid. Will send in a prescription for her today to [facility]. [facility] [place] [facility] 09-10-2024 Progress note Formatting of t his note might be different from the original. E. coli bacteria present, culture shows resistance to ciprofloxacin and Bactrim. If still having symptoms would recommend switching to Macrobid. Will send in a prescription for her today to [facility]. [facility] [place] [facility] 09-08-2024 History of Present illness Narrative Primary Care Pharmacy Visit CC (Reason for Consult): (E11.9) Type 2 diabetes mellitus without complication, unspecified whether long term care administrator insulin use (HCC) (primary encounter diagnosis) Goal(s): [...] 2 diabetes mellitus without complication, unspecified whether senior living insulin use (HCC) - ICD9: 250.00, ICD10: [...] Tatianna Crook, PharmD, BCACP Primary Care Clinical Supervisor [employer] documented in this encounter [facility] [place] [facility] 09-08-2024 Note [facility] 09-07-2024 History of Present illness Narrative [...] past 5 days. - Upcoming travel to [place] with [id number]; wants to ensure UTI is resolved before [...] tablet by mouth at bedtime as needed. [employer] FinancialTOUCH ULTRA PLUS TEST strp 1 Each two [...] (HCC) followed by Dr. Husam Hart in [place] Social History Tobacco Use Smoking status: Never Smokeless tobacco: Never Vaping Use Vaping status: Never Used Substance Use Topics Alcohol use: Yes Comment: 2 drinks per month Drug use: No 1. UTI symptoms (R39.9) - Symptoms include dysuria, fatigue, and urinary urgency; mild abdominal discomfort noted but improving. - UA in office confirms UTI. - Prescribed Ciprofloxacin; sent prescription to [facility] pharmacy. - Advised increased fluid intake to aid in resolution. - Instructed to report if symptoms persist; will consider urine culture if no improvement. Cathy Burr APRN.CNS Medical Decision Making: Problems: Low: Acute, uncomplicated illness or injury Data: Unique test(s) ordered: 2 Risk: Moderate: Drug management Medical Decision Making Level: 3 - Low documented in this encounter [facility] [place] [facility] 09-07-2024 Note [facility] 09-03-2024 Note HNO ID: [id number] Author: NOE PASTRANA ST Service: ? Author Type: Surg Telegraph Plant Maintainer Type: Progress Notes Filed: 09/03/2024 13:30 Note Text: DATE OF PHOTOS: 09/03/2024 Body Part: Breasts and Arms NOE PASTRANA September 03, 2024 1:30 PM [facility] 09-03-2024 History of Present illness Narrative DATE OF PHOTOS: 09/03/2024 Body Part: Breasts and Arms NOE PASTRANA, September 03, 2024 1:30 PM documented in this encounter [facility] [place] [facility] 09-03-2024 Instructions Valery Razo RN - 09/03/2024 1:24 PM EDT For an appointment call Rehabilitation [facility] Sports Therapy: [phone]. The tourist agent will assist you in selecting the location and specialty service that will best meet your needs. 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 Husam Hart in [place] PAST SURGICAL HISTORY Procedure Laterality Date ARTHRP ACETBLR/PROX FEM PROSTC AGRFT/ALGRFT Right 03/20/2019 Hip replacement, total ARTHRP KNE CONDYLE&PLATU MEDIAL&LAT COMPARTMENTS Left 02/2016 BIOPSY BREAST OPEN INCISIONAL Left 2007 [facility] benign pathology per patient BREAST RECONSTRUCTION Left [...] questions or concerns during business hours call [phone] or after hours (after 5 pm or on the weekend) call [phone] and ask for the plastic surgery resident / fellow juvenile detention officer for further instructions. If you have increasing [...] Past Histories independently gathered by the clinical software support technician and the remaining scribed note accurately describes my personal service to the patient. I spent 20 minutes in the visit, with more than 50% of the total [id number] time of the visit in counseling / [...] Micki Marcelino MD documented in this encounter [facility] [place] [facility] 09-03-2024 Note [facility] 09-01-2024 Progress note Formatting of t his note might be different from the original. Her serum creatinine is elevated again and appears to be dehydration. Please ask her to remember to hydrate well daily. [facility] [place] [facility] 09-01-2024 Miscellaneous Notes Her serum creatinine is elevated again and appears to be dehydration. Please ask her to remember to hydrate well daily. documented in this encounter [facility] [place] [facility] 08-31-2024 Note HNO ID: [id number] Author: MILAGROS BROWN, PT Service: ? Author [...] Planned: 8 Planned Treatment Interventions: Therapeutic exercise (49985), Manual therapy (45939), Self-long term management (01675), Patient/Family/Caregiver Education, Therapeutic activities (66835) (lymphedema program) PLAN FOR NEXT VISIT: lymphedema [...] (Left) 2008 Biopsy breast open incisional (Left) [facility] benign pathology per patient 1996,1993 delivery only , low transverse Right or Left Handed: Right Hobbies / Interests: golfing Intake Information: Prescription present Previous Treatment: Physical Therapy Falls Interview: No positive findings with falls interview Pain: Pain Pain Level: 0 Pain Location: Chest - Left Post Treatment Pa (more content not included)... [facility] 08-31-2024 History of Present illness Narrative Images [...] Planned: 8 Planned Treatment Interventions: Therapeutic exercise (22606), Manual therapy (37448), Self-long term management (35815), Patient/Family/Caregiver Education, Therapeutic activities (26849) (lymphedema program) PLAN FOR NEXT VISIT: lymphedema [...] (Left) 2008 Biopsy breast open incisional (Left) [facility] benign pathology per patient 1996,1993 delivery only [...] Milagros Brown PT documented in this encounter [facility] [place] [facility] 08-11-2024 History of Present illness Narrative Primary Care Pharmacy Visit CC (Reason for Consult): (E11.9) Type 2 diabetes mellitus without complication, unspecified whether senior living insulin use (HCC) (primary encounter diagnosis) Goal(s): [...] tablet by mouth at bedtime as needed. [employer] FinancialTOUCH ULTRA PLUS TEST strp 1 Each two [...] 2 diabetes mellitus without complication, unspecified whether long term care administrator insulin use (HCC) - ICD9: 250.00, ICD10: [...] Tatianna Crook, PharmD, BCACP Primary Care Clinical Supervisor [employer] documented in this encounter [facility] 08-11-2024 Note [facility] 08-10-2024 Telephone encounter Note Images from the original note were not included. Most recent Endocrinology visit: Last encounter Visit on 04/15/2024 (with Daisy Titus) 02/05/2024 in [facility] with DAISY TITUS for Poorly control type 2 diabetes mellitus (HCC) 04/15/2024 in [facility] with DAISY TITUS for Diabetes mellitus treated with insulin (HCC) Upcoming Endocrinology Appointments - Next 365 Days Visit Type Date Time Department EST ANNIE PATIENT 10/14/2024 11:45 AM [facility] Requested Prescriptions Pending Prescriptions Disp Refills DROPLET [...] the last 12 months Cristal Davidson MA [facility] 08-10-2024 Miscellaneous Notes Images from the original note were not included. Most recent Endocrinology visit: Last encounter Visit on 04/15/2024 (with Daisy Titus) 02/05/2024 in [facility] with DAISY TITUS for Poorly control type 2 diabetes mellitus (HCC) 04/15/2024 in [facility] with DAISY TITUS for Diabetes mellitus treated with insulin (HCC) Upcoming Endocrinology Appointments - Next 365 Days Visit Type Date Time Department EST ANNIE PATIENT 10/14/2024 11:45 AM [facility] Requested Prescriptions Pending Prescriptions Disp Refills DROPLET [...] Cristal Davidson MA documented in this encounter [facility] 08-03-2024 Instructions Brooke Batista RN - 08/03/2024 10:43 AM EDT Consult to breast rehab - Please call [phone] to schedule, change, cancel or confirm an [...] questions or concerns during business hours call [phone] or after hours (after 5 pm or on the weekend) call [phone] and ask for the plastic surgery resident / fellow juvenile detention officer for further instructions. If you have increasing [...] with Dr. Marcelino documented in this encounter [facility] 08-03-2024 History of Present illness Narrative Plastic [...] to last office visit Has prosthetic from [employer], is not interested in any further reconstruction Has some tightness to left upper extremity- saw bobbi at [facility] in the past Hx Radiation Therapy: Yes- completed 12/2017 Hx Chemotherapy: Yes- completed in 2018 Hx of DM, on insulin HBa1c 6.8 recently Wiund culture from 06/25/24 WOUND CULTURE No growth Smear Result No organisms seen No Polymorphonuclear Leukocytes Surgical pathology FINAL DIAGNOSIS 1. Left chest, skin, excision (A) - Invasive ductal carcinoma, Colrain grade 3, involving subcutis, dermis and epidermis (including ulceration), (see comment). 2. Left breast implant, excision and removal (B) - Amorphous acellular material. -Breast implant (gross evaluation only). 3. Left breast, inframammary fold, excision (C) - Invasive ductal carcinoma, Colrain grade 3, spanning greater than 50 mm, [...] (HCC) followed by Dr. Husam Hart in [place] PAST SURGICAL HISTORY Procedure Laterality Date ARTHRP ACETBLR/PROX FEM PROSTC AGRFT/ALGRFT Right 03/20/2019 Hip replacement, total ARTHRP KNE CONDYLE&PLATU MEDIAL&LAT COMPARTMENTS Left 02/2016 BIOPSY BREAST OPEN INCISIONAL Left 2007 [facility] benign pathology per patient BREAST RECONSTRUCTION Left [...] tablet by mouth at bedtime as needed. TeravacUCH ULTRA PLUS TEST strp 1 Each two [...] breast rehab Encouraged [facility] to [facility] for all non-urgent questions or concerns. If experiencing wound complications or have any questions or concerns during business hours call [phone] or after hours (after 5 pm or on the weekend) call [phone] and ask for the plastic surgery resident / fellow juvenile detention officer for further instructions. If you have increasing [...] Past Histories independently gathered by the clinical software support technician and the remaining scribed note accurately describes my personal service to the patient. Micki Butler APRN.CNP August 03, 2024 documented in this encounter [facility] 08-03-2024 Note [facility] 07-17-2024 Progress note Formatting of t his note might be different from the original. NSR, some increased ectopy when compared to previous, remains less than 1% [facility] 07-17-2024 Miscellaneous Notes NSR, some increased ectopy when compared to previous, remains less than 1% documented in this encounter [facility] 07-15-2024 Instructions Katie Carter RN - 07/15/2024 1:09 PM EDT Please call [phone] for Breast Rehab documented in this encounter [facility] 07-15-2024 History of Present illness Narrative Plastic [...] course of doxycycline that was ordered at [facility]. Hx Radiation Therapy: Yes- completed 12/2017 Hx Chemotherapy: Yes- completed in 2018 Hx of DM, on insulin HBa1c 6.8 recently Wiund culture from 06/25/24 WOUND CULTURE No growth Smear Result No organisms seen No Polymorphonuclear Leukocytes Surgical pathology FINAL DIAGNOSIS 1. Left chest, skin, excision (A) - Invasive ductal carcinoma, Colrain grade 3, involving subcutis, dermis and epidermis (including ulceration), (see comment). 2. Left breast implant, excision and removal (B) - Amorphous acellular material. -Breast implant (gross evaluation only). 3. Left breast, inframammary fold, excision (C) - Invasive ductal carcinoma, Colrain grade 3, spanning greater than 50 mm, [...] (HCC) followed by Dr. Husam Hart in [place] PAST SURGICAL HISTORY Procedure Laterality Date ARTHRP ACETBLR/PROX FEM PROSTC AGRFT/ALGRFT Right 03/20/2019 Hip replacement, total ARTHRP KNE CONDYLE&PLATU MEDIAL&LAT COMPARTMENTS Left 02/2016 BIOPSY BREAST OPEN INCISIONAL Left 2007 [facility] benign pathology per patient BREAST RECONSTRUCTION Left [...] tablet by mouth at bedtime as needed. [employer] FinancialTOUCH ULTRA PLUS TEST strp 1 Each two [...] for pain) [facility] for all non-[facility]ent questions or concerns. If experiencing wound complications or have any questions or concerns during business hours call [phone] or after hours (after 5 pm or on the weekend) call [phone] and ask for the plastic surgery resident / fellow juvenile detention officer for further instructions. If you have increasing [...] Past Histories independently gathered by the clinical software support technician and the remaining scribed note accurately describes my personal service to the patient. Micki Butler APRN.CNP July 15, 2024 documented in this encounter [facility] 07-15-2024 Note HNO ID: [id number] Author: MICKI BUTLER APRN.CNP Service: ? Author [...] course of doxycycline that was ordered at [facility]. Hx Radiation Therapy: Yes- completed 12/2017 Hx Chemotherapy: Yes- completed in 2018 Hx of DM, on insulin HBa1c 6.8 recently Wiund culture from 06/25/24 WOUND CULTURE No growth Smear Result No organisms seen No Polymorphonuclear Leukocytes Surgical pathology FINAL DIAGNOSIS 1. Left chest, skin, excision (A) - Invasive ductal carcinoma, Colrain grade 3, involving subcutis, dermis and epidermis (including ulceration), (see comment). 2. Left breast implant, excision and removal (B) - Amorphous acellular material. -Breast implant (gross evaluation only). 3. Left breast, inframammary fold, excision (C) - Invasive ductal carcinoma, Colrain grade 3, spanning greater than 50 mm, [...] (HCC) followed by Dr. Husam Hart in [place] PAST SURGICAL HISTORY Procedure Laterality Date ARTHRP ACETBLR/PROX FEM PROSTC AGRFT/ALGRFT Right 03/20/2019 Hip replacement, total ARTHRP KNE CONDYLEANDPLATU MEDIALANDLAT COMPARTMENTS Left 02/2016 BIOPSY BREAST OPEN INCISIONAL Left 2007 [facility] benign pathology per patient BREAST RECONSTRUCTION Left [...] Safety check p (more content not included)... [facility] 07-14-2024 History of Present illness Narrative Primary Care Pharmacy Visit CC (Reason for Consult): (E11.9) Type 2 diabetes mellitus without complication, unspecified whether senior living insulin use (HCC) (primary encounter diagnosis) Goal(s): A1c <8% per consult Last Collaborating Provider Visit: 06/05/24 with Cathy Burr, LOGISTICS TEAM LEADER - metoprolol succinate started Pat Sorto is [...] tablet by mouth at bedtime as needed. [employer] FinancialTOUCH ULTRA PLUS TEST strp 1 Each two [...] 2 diabetes mellitus without complication, unspecified whether senior living insulin use (HCC) - ICD9: 250.00, ICD10: [...] Tatianna Crook PharmD, BCACP Primary Care Clinical Supervisor [employer] documented in this encounter [facility] 07-14-2024 Note [facility] 07-14-2024 Note [facility] 07-13-2024 Telephone encounter Note I spoke with the patient and answered all questions. Patient to keep all appointments as scheduled. Svetlana Kong LPN [facility] 07-13-2024 Miscellaneous Notes I spoke with the [...] needed for thyroid. documented in this encounter [facility] 07-12-2024 Telephone encounter Note I called and [...] we can let patient know Edilia Hughes [facility] 07-10-2024 Telephone encounter Note Can let her know the ultrasound thyroid showed one nodule that stable and appears benign compared to the previous ultrasound from 2020. No further imaging needed for thyroid. [facility] 07-09-2024 Note [facility] 07-09-2024 History of Present illness Narrative Diagnosis: 1) Breast cancer. HPI: The patient is a 64-year-old female who has a past medical history significant for hypertension and primary biliary cirrhosis. 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 Most recent liver chemistries performed at [facility] on 01/10/2017 showed a total bilirubin of [...] Evidently she was on a trip to [place] about 2 1/2 years ago when she [...] greatest length). ER (clone 6F11) >95%, strong GA (clone 16/1E2) >95%, strong Her-2Neu (clone CB11) [...] Previously performed (HER2) ERBB2 Status: Previously performed Lace Weaver Tumor Block: Specify: B3 Residual tumor burden: Tumor bed dimension #1: 8 mm Tumor bed dimension #2: 5 mm Overall tumor cellularity 50% Percentage in situ 3% Comment: Please see [id number] for the results of estrogen and progesterone [...] was performed on block A1 at the [facility] and compared to appropriate reactive controls. The [...] everolimus second week April 2023. Was at [facility]. Had PET scan on 05/02. Demonstrated stable [...] was discussed with the patient or authorized parts representative. The patient or authorized parts representative has agreed to proceed with the [...] internal mammary merlyn involvement) MX stage IIIC ER/GA positive, HER2 non overexpressed invasive ductal carcinoma of the right breast. -KPS is 100%. -PET scan indicated disease left chest wall and mediastinal lymph nodes. -MRI brain negative. -Biopsy-proven disease recurrence left chest wall inferior and posterior to implant. -ER positive (99% strong staining intensity), GA positive (2% with strong staining intensity), HER2 2+; nonamplified by FISH testing. 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 -MRI Breast 03/28/2023 demonstrated PD and therapy was rotated to Faslodex and Afinitor. Oncology at [facility] recommended exemestane with Afinitor. -Symptomatically tolerating well. [...] monitor blood pressures to share with her mobility specialist and PCP. Plan: -Continue follow up with [...] Serena Carrasco DO documented in this encounter [facility] 07-08-2024 History of Present illness Narrative Radiology [...] PATIENT PRESENTS WITH AN IMPLANTABLE OR ATTACHED BAND INSTRUMENT MAKER: No RADIOLOGY DEPARTMENT: Ultrasound PERIPHERAL IV DATA: Not applicable SIGNED BY: Carla Bose RDMS RVT July 08, 2024 4:22 PM documented in this encounter [facility] 07-08-2024 Note [facility] 07-07-2024 Telephone encounter Note Thank you. Filed. Serena Carrasco DO [facility] 07-07-2024 Miscellaneous Notes Thank you. Filed. Serena Carrasco DO Please sign order Kasie Lamb LPN documented in this encounter [facility] 07-07-2024 Telephone encounter Note Please sign order Kasie Lamb LPN [facility] 07-06-2024 Instructions Brooke Batista RN - 07/06/2024 [...] for pain) Encouraged [facility] to [facility] for all non-urgent questions or concerns. If experiencing wound complications or have any questions or concerns during business hours call [phone] or after hours (after 5 pm or on the weekend) call [phone] and ask for the plastic surgery resident / fellow juvenile detention officer for further instructions. If you have increasing [...] or difficulty breathing documented in this encounter [facility] 07-06-2024 History of Present illness Narrative Plastic [...] (HCC) followed by Dr. Husam Hart in [place] PAST SURGICAL HISTORY Procedure Laterality Date ARTHRP ACETBLR/PROX FEM PROSTC AGRFT/ALGRFT Right 03/20/2019 Hip replacement, total ARTHRP KNE CONDYLE&PLATU MEDIAL&LAT COMPARTMENTS Left 02/2016 BIOPSY BREAST OPEN INCISIONAL Left 2007 [facility] benign pathology per patient BREAST RECONSTRUCTION Left [...] questions or concerns during business hours call [phone] or after hours (after 5 pm or on the weekend) call [phone] and ask for the plastic surgery resident / fellow juvenile detention officer for further instructions. If you have increasing [...] with more than 50% of the total xnof-ai-fuab time of the visit in counseling / coordination of care. I agree with the Chief Complaint, ROS, and Past Histories independently gathered by the clinical software support technician and the remaining scribed note accurately describes my personal service to the patient. Micki Butler APRN.SONIDO July 06, 2024 documented in this encounter [facility] 07-06-2024 Note [facility] 07-06-2024 Telephone encounter Note I called and spoke to Pat and scheduled her for the below ordered ultrasound for this Saturday07/08/24 @ 11:30 am, she confirmed this date and time Ediila Herrera Pss [facility] 07-06-2024 Miscellaneous Notes I called and spoke to Pat and scheduled her for the below ordered ultrasound for this Saturday07/08/24 @ 11:30 am, she confirmed this date and time Edilia Herrera Pss US thyroid when able. Serena Carrasco DO documented in this encounter [facility] 07-03-2024 Telephone encounter Note US thyroid when able. Serena Carrasco DO [facility] 06-30-2024 History of Present illness Narrative RADIOLOGY [...] PATIENT PRESENTS WITH AN IMPLANTABLE OR ATTACHED BAND INSTRUMENT MAKER: No CREATININE: Creatinine Date Value Ref Range [...] safety can be found using this link: [email or web address] %[email or web address] SIGNATURE: PATRICIA Ying) PATIENT NAME: Pat Sorto DATE: June 30, 2024 TIME: 10:25 AM PAGER/CONTACT #: documented in this encounter [facility] 06-30-2024 Note HNO ID: [id number] Author: MYLA DO RT(R) Service: Nuclear Medicine [...] PATIENT PRESENTS WITH AN IMPLANTABLE OR ATTACHED BAND INSTRUMENT MAKER: No CREATININE: Creatinine Date Value Ref Range [...] 1002 PATIENT DISCHARGED TO: Ambulatory patient, left [place] department area. Is this a therapy: No A Diagnostic radioactive procedure has taken place, with no further precautions necessary other than routine body substance precautions. More information regarding radiation safety can be found using this link: [email or web address] [email or web address]-% 20Diagnostic%20Nuclear%20Medicine% 20Procedures.pdf SIGNATURE: RT Deonna(R) PATIENT NAME: Pat Sorto DATE: June 30, 2024 TIME: 10:25 AM PAGER/CONTACT #: [facility] 06-26-2024 Telephone encounter Note ok [facility] 06-26-2024 Miscellaneous Notes ok pharmacy says insurance will cover 90 day supply. Change? Last saw PROJECT SYSTEMS ENGINEER 06/05/24. Next appt with pcp in Mar 2025. documented in this encounter [facility] 06-26-2024 Telephone encounter Note pharmacy says insurance will cover 90 day supply. Change? Last saw PROJECT SYSTEMS ENGINEER 06/05/24. Next appt with pcp in Mar 2025. [facility] 06-24-2024 Note [facility] 06-24-2024 History of Present illness Narrative [...] skin, excision (A) - Invasive ductal carcinoma, Colrain grade 3, involving subcutis, dermis and epidermis [...] (HCC) followed by Dr. Husam Hart in [place] PAST SURGICAL HISTORY Procedure Laterality Date ARTHRP ACETBLR/PROX FEM PROSTC AGRFT/ALGRFT Right 03/20/2019 Hip replacement, total ARTHRP KNE CONDYLE&PLATU MEDIAL&LAT COMPARTMENTS Left 02/2016 BIOPSY BREAST OPEN INCISIONAL Left 2007 [facility] benign pathology per patient BREAST RECONSTRUCTION Left [...] tablet by mouth at bedtime as needed. [employer] FinancialTOUCH ULTRA PLUS TEST strp 1 Each two [...] for pain) Encouraged patient to communicate [facility] for all non-urgent questions or concerns. If experiencing wound complications or have any questions or concerns during business hours call [phone] or after hours (after 5 pm or on the weekend) call [phone] and ask for the plastic surgery resident / fellow juvenile detention officer for further instructions. If you have increasing [...] with more than 50% of the total owba-am-ltcb time of the visit in counseling / coordination of care. I agree with the Chief Complaint, ROS, and Past Histories independently gathered by the clinical software support technician and the remaining scribed note accurately describes my personal service to the patient. I aspirated 60 cc serous simple fluid from the left breast pocket. Will have her follow with Micki Butler for seroma aspirations. I discussed that once the seroma has resolved for at least 2 weeks than she can start PT and massage. Micki Marcelino MD documented in this encounter [facility] 06-23-2024 Progress note Formatting of t his note might be different from the original. Labs overall look good. Endorse increased hydration [facility] 06-23-2024 Miscellaneous Notes Labs overall look good. Endorse increased hydration documented in this encounter [facility] 06-19-2024 Progress note Formatting of t his note might be different from the original. ZIO shows primarily sinus rhythm with rare ectopics. [facility] 06-19-2024 Miscellaneous Notes ZIO shows primarily sinus rhythm with rare ectopics. Preliminary result shows primarily sinus rhythm with rare ectopic beats. Awaiting final sign off / interpretation by cardiology documented in this encounter [facility] 06-16-2024 History of Present illness Narrative Primary Care Pharmacy Visit CC (Reason for Consult): (E11.9) Type 2 diabetes mellitus without complication, unspecified whether senior living insulin use (HCC) (primary encounter diagnosis) (Z79.899) [...] 2 diabetes mellitus without complication, unspecified whether long term care administrator insulin use (HCC) - ICD9: 250.00, ICD10: [...] Tatianna Crook, BipinD, BCACP Primary Care Clinical Supervisor [employer] documented in this encounter [facility] 06-16-2024 Note [facility] 06-11-2024 Note [facility] 06-11-2024 History of Present illness Narrative Plastic Surgery Post Op Note This is a virtual visit using [employer] Zoom Video Visit. It required patient-provider interaction for the medical decision making as documented below. I have communicated my name and active licensure. The patient's identity and physical location were verified at the time of this visit. Either the patient or their legal parts representative has been informed of the risks [...] skin, excision (A) - Invasive ductal carcinoma, Colrain grade 3, involving subcutis, dermis and epidermis [...] (HCC) followed by Dr. Husam Hart in [place] PAST SURGICAL HISTORY Procedure Laterality Date ARTHRP ACETBLR/PROX FEM PROSTC AGRFT/ALGRFT Right 03/20/2019 Hip replacement, total ARTHRP KNE CONDYLE&PLATU MEDIAL&LAT COMPARTMENTS Left 02/2016 BIOPSY BREAST OPEN INCISIONAL Left 2007 [facility] benign pathology per patient BREAST RECONSTRUCTION Left [...] 6 weeks after surgery. Do not perform clinical provider trainer such as laundry and vacuuming. Do not [...] for pain) Encouraged [facility] to [facility] for all non-urgent questions or concerns. If experiencing wound complications or have any questions or concerns during business hours call [phone] or after hours (after 5 pm or on the weekend) call [phone] and ask for the plastic surgery resident / fellow juvenile detention officer for further instructions. If you have increasing [...] from today's encounter. documented in this encounter [facility] 06-09-2024 Progress note Formatting of t his note might be different from the original. Preliminary result shows primarily sinus rhythm with rare ectopic beats. Awaiting final sign off / interpretation by cardiology [facility] 06-05-2024 Instructions Cathy Burr APRN.CNS - 06/05/2024 9:02 AM EST Drink about 64 ounces of fluid daily. Add metoprolol succinate 25 mg daily. Check your blood pressure once daily. Call and let us know if your blood pressure is running greater than 150/80 documented in this encounter [facility] 06-05-2024 Note [facility] 06-05-2024 History of Present illness Narrative [...] visit for hypertension. She was seen at [facility] ER 05/21/2024 for hypertensive urgency. She [...] (HCC) followed by Dr. Husam Hart in [place] Social History Tobacco Use Smoking status: Never [...] 4 - Moderate documented in this encounter [facility] 06-04-2024 History of Present illness Narrative Plastic [...] 2-3 days d/t diarrhea Drain removed at [facility] Activity: able to participate in ADLs within [...] (HCC) followed by Dr. Husam Hart in [place] PAST SURGICAL HISTORY Procedure Laterality Date ARTHRP ACETBLR/PROX FEM PROSTC AGRFT/ALGRFT Right 03/20/2019 Hip replacement, total ARTHRP KNE CONDYLE&PLATU MEDIAL&LAT COMPARTMENTS Left 02/2016 BIOPSY BREAST OPEN INCISIONAL Left 2007 [facility] benign pathology per patient BREAST RECONSTRUCTION Left [...] 6 weeks after surgery. Do not perform clinical provider trainer such as laundry and vacuuming. Do not [...] for pain) Encouraged [facility] to [facility] for all non-urgent questions or concerns. If experiencing wound complications or have any questions or concerns during business hours call [phone] or after hours (after 5 pm or on the weekend) call [phone] and ask for the plastic surgery resident / fellow juvenile detention officer for further instructions. If you have increasing [...] from today's encounter. documented in this encounter [facility] 06-04-2024 Note [facility] 05-29-2024 Note [facility] 05-29-2024 History of Present illness Narrative [...] (HCC) followed by Dr. Husam Hart in [place] PAST SURGICAL HISTORY Procedure Laterality Date ARTHRP ACETBLR/PROX FEM PROSTC AGRFT/ALGRFT Right 03/20/2019 Hip replacement, total ARTHRP KNE CONDYLE&PLATU MEDIAL&LAT COMPARTMENTS Left 02/2016 BIOPSY BREAST OPEN INCISIONAL Left 2007 [facility] benign pathology per patient BREAST RECONSTRUCTION Left [...] 6 weeks after surgery. Do not perform clinical provider trainer such as laundry and vacuuming. Do not [...] questions or concerns during business hours call [phone] or after hours (after 5 pm or on the weekend) call [phone] and ask for the plastic surgery resident / fellow juvenile detention officer for further instructions. If you have increasing [...] from today's encounter. documented in this encounter [facility] 05-27-2024 History of Present illness Narrative REASON [...] epidermis (including ulceration) IMPRESSION: 2018: Stage IIIC ER/GA positive, HER2 negative left breast cancer treated; [...] Eliz Bingham MD documented in this encounter [facility] 05-27-2024 Note [facility] 05-26-2024 Note Addended by: CATHY BURR on: 05/26/2024 12:30 PM Modules accepted: Orders [facility] 05-26-2024 Miscellaneous Notes Addended by: CATHY BURR on: 05/26/2024 12:30 PM Modules accepted: Orders documented in this encounter [facility] 05-26-2024 Telephone encounter Note Attempted to contact patient but no answer. Left message that labs done after appointment today were meant to be done next week prior to appointment. Labs from today have been cancelled, please stop in next week to have labs redone. Encounter routed to provider to place lab order again for patient to complete prior to appointment. [facility] 05-26-2024 Miscellaneous Notes Attempted to contact patient but no answer. Left message that labs done after appointment today were meant to be done next week prior to appointment. Labs from today have been cancelled, please stop in next week to have labs redone. Encounter routed to provider to place lab order again for patient to complete prior to appointment. documented in this encounter [facility] 05-26-2024 Note [facility] 05-26-2024 Note [facility] 05-26-2024 History of Present illness Narrative [...] visit for hypertension. She was seen at [facility] ER 05/21/2024 for hypertensive urgency. She [...] (HCC) followed by Dr. Husam Hart in [place] Social History Tobacco Use Smoking status: Never [...] approx one week with labs Cathy Burr APRN.LOGISTICS TEAM LEADER Medical Decision Making: Problems: Moderate: 1+ chronic illnesses with change Data: Unique source(s) for external note(s) reviewed: 1 Unique test result(s) reviewed: 3+ Risk: Moderate: Drug management Medical Decision Making Level: 4 - Moderate documented in this encounter [facility] 05-26-2024 Note [facility] 05-25-2024 Note [facility] 05-25-2024 History of Present illness Narrative [...] (HCC) followed by Dr. Husam Hart in [place] PAST SURGICAL HISTORY Procedure Laterality Date ARTHRP ACETBLR/PROX FEM PROSTC AGRFT/ALGRFT Right 03/20/2019 Hip replacement, total ARTHRP KNE CONDYLE&PLATU MEDIAL&LAT COMPARTMENTS Left 02/2016 BIOPSY BREAST OPEN INCISIONAL Left 2007 [facility] benign pathology per patient BREAST RECONSTRUCTION Left [...] tablet by mouth at bedtime as needed. [employer] FinancialTOUCH ULTRA PLUS TEST strp 1 Each two [...] 6 weeks after surgery. Do not perform clinical provider trainer such as laundry and vacuuming. Do not [...] for pain) Encouraged patient to [facility] for all non-urgent questions or concerns. If experiencing wound complications or have any questions or concerns during business hours call [phone] or after hours (after 5 pm or on the weekend) call [phone] and ask for the plastic surgery resident / fellow juvenile detention officer for further instructions. If you have increasing [...] Past Histories independently gathered by the clinical software support technician and the remaining scribed note accurately describes my personal service to the patient. Mino Beard APRN.CNP May 25, 2024 documented in this encounter [facility] 05-21-2024 Telephone encounter Note See nurse triage encounter 05/21/24 [facility] Work Phone: 05-21-2024 Miscellaneous Notes See nurse triage encounter 05/21/24 documented in this encounter [facility] 05-21-2024 Telephone encounter Note See triage nurse encounter [facility] 05-21-2024 Miscellaneous Notes See triage nurse encounter documented in this encounter [facility] 05-21-2024 Telephone encounter Note See pt's MyChart [...] 7. :n/a Protocols used: Blood Pressure - [id number] ---- Message ----- From: Pat Sorto Sent: [...] Should I reach out to Marine harrell? [facility] 05-21-2024 Miscellaneous Notes See pt's MyChart msg [...] 7. :n/a Protocols used: Blood Pressure - [id number] ---- Message ----- From: Pat Sorto Sent: [...] to Marine harrell? documented in this encounter [facility] 05-20-2024 Telephone encounter Note Duplicate request. Svetlana Kong LPN [facility] 05-20-2024 Miscellaneous Notes Duplicate request. Svetlana Kong LPN documented in this encounter [facility] 05-19-2024 Telephone encounter Note Spoke to patient [...] Charles PA-C May 19, 2024 .11:59 AM [facility] 05-19-2024 Miscellaneous Notes Spoke to patient today [...] 2024 .11:59 AM documented in this encounter [facility] 05-18-2024 Surgery Surgical operation note BRIEF OPERATIVE / PROCEDURE NOTE LOG ID: [id number] SURGERY/PROCEDURE DATE: 05/18/2024 INCISION/PROCEDURE START TIME: 11:32 AM INCISION CLOSE/PROCEDURE END TIME: SURGEON(S)/PROCEDURALIST(S) AND ROOFER HELPER VINYL COATING(S): Surgeons and Role: Panel 1: * Micki Marcelino MD - Primary * Nathan Osei MD - Resident - Assisting Panel 2: * Eliz Bingham MD - Primary Physician Battery Assembler Plastic: Cayla Charles PA-C SURGERY/PROCEDURE(S): Left WLE of skin recurrence; closure of mastectomy flap ANESTHESIA: General FINDINGS: see dictation ESTIMATED BLOOD LOSS: 0 SPECIMENS: left skin excision at 7 o'clock COMPLICATIONS: None DRAINS: Unmodified 1 15 round Italian drain CLOSURE TECHNIQUE: Primary PRE-OP/PRE-PROCEDURE DIAGNOSIS: Left breast cancer recurrence POST-OP/POST-PROCEDURE DIAGNOSIS: Same as Preop Patient was accompanied to the next level of care by a licensed practitioner from the surgical team pending completion of this brief op note (or operative note) SIGNATURE: Cayla Charles PA-C PATIENT NAME: Pat Sorto DATE: May 18, 2024 TIME: 12:31 PM [facility] 05-18-2024 Surgical operation note BRIEF OPERATIVE / PROCEDURE NOTE LOG ID: [id number] SURGERY/PROCEDURE DATE: 05/18/2024 INCISION/PROCEDURE START TIME: 11:32 AM INCISION CLOSE/PROCEDURE END TIME: SURGEON(S)/PROCEDURALIST(S) AND ROOFER HELPER VINYL COATING(S): Surgeons and Role: Panel 1: * Micki Marcelino MD - Primary * Nathan Osei MD - Resident - Assisting Panel 2: * Eliz Bingham MD - Primary Physician Battery Assembler Plastic: Cayla Charles PA-C SURGERY/PROCEDURE(S): Left WLE of skin recurrence; closure of mastectomy flap ANESTHESIA: General FINDINGS: see dictation ESTIMATED BLOOD LOSS: 0 SPECIMENS: left skin excision at 7 o'clock COMPLICATIONS: None DRAINS: Unmodified 1 15 round Italian drain CLOSURE TECHNIQUE: Primary PRE-OP/PRE-PROCEDURE DIAGNOSIS: Left breast cancer recurrence POST-OP/POST-PROCEDURE DIAGNOSIS: Same as Preop Patient was accompanied to the next level of care by a licensed practitioner from the surgical team pending completion of this brief op note (or operative note) SIGNATURE: Cayla Charles PA-C PATIENT NAME: Pat Sorto DATE: May 18, 2024 TIME: 12:31 PM documented in this encounter [facility] 05-18-2024 Note [facility] 05-18-2024 Attending History and physical note [...] Yes This is a virtual visit using [employer] Zoom Video Visit. It require patient-provider interaction [...] visit. Either the patient or their legal parts representative has been informed of the risks [...] negative and tested negative for influenza in [facility] care. Chest x-ray was negative for pneumonia. [...] patient to reach out to PCP and/or mobility specialist if the readings are consistently elevated. She plans to do this Per [employer] message from patient - she states home [...] recent EF on echocardiogram 08/27/2023 was 59%. Cyber Security Engineer note reviewed from 10/09/2023 mentions recommendations for [...] (HCC) followed by Dr. Husam Hart in [place] PAST SURGICAL HISTORY Procedure Laterality Date ARTHRP ACETBLR/PROX FEM PROSTC AGRFT/ALGRFT Right 03/20/2019 Hip replacement, total ARTHRP KNE CONDYLE&PLATU MEDIAL&LAT COMPARTMENTS Left 02/2016 BIOPSY BREAST OPEN INCISIONAL Left 2007 [facility] benign pathology per patient BREAST RECONSTRUCTION Left [...] fevers. Neuro: No history of TIA's, stroke, LOGISTICS TEAM LEADER tumor, impaired sensorium, hemiplegia, paraplegia or quadraplegia. No neurological symptoms or problems. Respiratory: Positive for URI - onset of symptoms 04/25 - nasal congestion, productive cough and fatigue. COVID-19 and flu testing negative. No fever. Improving - AM cough productive green sputum that is progressively improving, Negative for Asthma, COPD Cardiovascular: Positive for: Hypertension, history of cardiomyopathy during chemotherapy 2017, Negative for Recent ME, Angina, CAD, Chest Pain, Valvular Heart Disease, DVT/PE GI: Positive for GERD, PBC, Negative for Nausea, Vomiting, Abdominal pain, Hepatitis, Pancreatitis : No history of dysuria, frequency or incontinence,, stones or chronic kidney disease STUDIO HAND: Negative for abnormal vaginal bleeding, abnormal vaginal [...] internal mammary merlyn involvement) MX stage IIIC ER/GA positive, HER2 non overexpressed invasive ductal carcinoma of the right breast. -KPS is 100%. -PET scan indicated disease left chest wall and mediastinal lymph nodes. -MRI brain negative. -Biopsy-proven disease recurrence left chest wall inferior and posterior to implant. -ER positive (99% strong staining intensity), GA positive (2% with strong staining intensity), HER2 2+; nonamplified by FISH testing. 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 -MRI Breast 03/28/2023 demonstrated PD and therapy was rotated to Faslodex and Afinitor. Oncology at [facility] recommended exemestane with Afinitor. -Symptomatically tolerating well. [...] monitor blood pressures to share with her mobility specialist and PCP. Plan: -Continue Cozaar and follow-up [...] which included preparing to see the patient, [id number] patient care, completing clinical documentation, obtaining and/or [...] DATE: 05/04/2024 TIME: 11:10 AM PAGER/CONTACT #: [facility] Work Phone: 05-18-2024 History and physical note [...] Yes This is a virtual visit using [employer] Video Visit. It require patient-provider interaction for [...] visit. Either the patient or their legal parts representative has been informed of the risks [...] negative and tested negative for influenza in [facility] care. Chest x-ray was negative for pneumonia. [...] lisinopril. Her most recent BP reading in [facility] was 126/80 on 04/28. Patient questions the validity of this reading. She states she has gotten readings such as 140/110 at home. Patient will check home BP readings and keep me updated. Encouraged patient to reach out to PCP and/or mobility specialist if the readings are consistently elevated. She plans to do this Per [employer] message from patient - she states home [...] recent EF on echocardiogram 08/27/2023 was 59%. Cyber Security Engineer note reviewed from 10/09/2023 mentions recommendations for [...] (HCC) followed by Dr. Husam Hart in [place] PAST SURGICAL HISTORY Procedure Laterality Date ARTHRP ACETBLR/PROX FEM PROSTC AGRFT/ALGRFT Right 03/20/2019 Hip replacement, total ARTHRP KNE CONDYLE&PLATU MEDIAL&LAT COMPARTMENTS Left 02/2016 BIOPSY BREAST OPEN INCISIONAL Left 2007 [facility] benign pathology per patient BREAST RECONSTRUCTION Left [...] ML BY MOUTH THEN SPIT ONCE WEEKLY [employer] FinancialTOUCH ULTRA PLUS TEST strp 1 Each two [...] fevers. Neuro: No history of TIA's, stroke, LOGISTICS TEAM LEADER tumor, impaired sensorium, hemiplegia, paraplegia or quadraplegia. No neurological symptoms or problems. Respiratory: Positive for URI - onset of symptoms 04/25 - nasal congestion, productive cough and fatigue. COVID-19 and flu testing negative. No fever. Improving - AM cough productive green sputum that is progressively improving, Negative for Asthma, COPD Cardiovascular: Positive for: Hypertension, history of cardiomyopathy during chemotherapy 2017, Negative for Recent ME, Angina, CAD, Chest Pain, Valvular Heart Disease, DVT/PE GI: Positive for GERD, PBC, Negative for Nausea, Vomiting, Abdominal pain, Hepatitis, Pancreatitis : No history of dysuria, frequency or incontinence,, stones or chronic kidney disease STUDIO HAND: Negative for abnormal vaginal bleeding, abnormal vaginal [...] internal mammary merlyn involvement) MX stage IIIC ER/GA positive, HER2 non overexpressed invasive ductal carcinoma of the right breast. -KPS is 100%. -PET scan indicated disease left chest wall and mediastinal lymph nodes. -MRI brain negative. -Biopsy-proven disease recurrence left chest wall inferior and posterior to implant. -ER positive (99% strong staining intensity), GA positive (2% with strong staining intensity), HER2 2+; nonamplified by FISH testing. 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 -MRI Breast 03/28/2023 demonstrated PD and therapy was rotated to Faslodex and Afinitor. Oncology at [facility] recommended exemestane with Afinitor. -Symptomatically tolerating well. [...] monitor blood pressures to share with her mobility specialist and PCP. Plan: -Continue Cozaar and follow-up [...] which included preparing to see the patient, [id number] patient care, completing clinical documentation, obtaining and/or [...] AM PAGER/CONTACT #: documented in this encounter [facility] 05-13-2024 Note [facility] 05-13-2024 History of Present illness Narrative [...] OF CARE PLAN OF CARE UPDATE: Assessment: Pta Sorto is discontinued from Physical Therapy services due to goal achievement.. Patient was seen for 3 visits from Start of Care Date: 04/24/24 to 05/13/2024 and treatment included: Therapeutic exercise, Manual therapy, Self-long term management, and Patient/Family/Caregiver Education. Goals for Episode of Care: established 04/24/24 Goals updated on 05/13/2024. [place] in home exercise program. (Met) Patient will [...] and assessment of patient's response to intervention. Self-Fdc Management: 1: Reviewed HEP and continued discussion [...] Bobbi Vanegas PT documented in this encounter [facility] 05-12-2024 Note [facility] 05-12-2024 History of Present illness Narrative SUBJECTIVE Pat Sorto is a 64 year old female who presents for recheck of cough. She was seen in [facility] on April 28, 2024 for [...] in 1 to 4 weeks. Cathy Burr APRN.LOGISTICS TEAM LEADER Medical Decision Making: Problems: Low: Acute, uncomplicated illness or injury Moderate: 1+ chronic illnesses with change Risk: Moderate: Drug management Medical Decision Making Level: 4 - Moderate documented in this encounter [facility] 05-11-2024 Note [facility] 05-11-2024 History of Present illness Narrative [...] education: 30 minutes. documented in this encounter [facility] 05-07-2024 Instructions Cathy Burr APRN.CNS - 05/07/2024 7:50 AM EST Check your blood pressure daily. Take losartan 100 mg once daily for blood pressure Avoid cough and cold medications that can increase your blood pressure such as pseudoephedrine documented in this encounter [facility] 05-07-2024 History of Present illness Narrative SUBJECTIVE Pat Sorto is a 64 year old female who presents with 7 days of symptoms that are improving but now with sore throat and nasal congestion. She was seen in [facility] on April 28, 2024 for [...] in 1 to 4 weeks. Cathy Burr APRN.LOGISTICS TEAM LEADER Medical Decision Making: Problems: Low: Acute, uncomplicated illness or injury Moderate: 1+ chronic illnesses with change Risk: Moderate: Drug management Medical Decision Making Level: 4 - Moderate documented in this encounter [facility] 05-07-2024 Note [facility] 05-06-2024 Note [facility] 05-06-2024 History of Present illness Narrative [...] Bobbi Vanegas PT documented in this encounter [facility] 05-05-2024 History of Present illness Narrative Primary Care Pharmacy Visit CC (Reason for Consult): (E11.9) Type 2 diabetes mellitus without complication, unspecified whether senior living insulin use (HCC) (primary encounter diagnosis) Goal(s): [...] 2 diabetes mellitus without complication, unspecified whether senior living insulin use (HCC) - ICD9: 250.00, ICD10: [...] Tatianna Crook PharmD, BCACP Primary Care Clinical Supervisor [employer] documented in this encounter [facility] 05-05-2024 Note [facility] 05-04-2024 Telephone encounter Note As discussed during our virtual visit, [employer] message will be sent to patient with instructions. Thank you! Yolanda Seo PA-C 05/04/2024 [facility] 05-04-2024 Miscellaneous Notes As discussed during our virtual visit, [employer] message will be sent to patient with instructions. Thank you! Yolanda Soe PA-C 05/04/2024 Giuseppe Guerrero. Actually she should [...] Seo PA-C PACC documented in this encounter [facility] 05-04-2024 Telephone encounter Note Giuseppe Guerrero. Actually she should hold the drug for 1 week prior to and 2 weeks after surgery as it can interfere with wound healing. Serena Carrasco DO [facility] 05-04-2024 Telephone encounter Note Dyllan afternoon Dr. [...] time and help, Yolanda Seo PA-C PACC [facility] 05-04-2024 Instructions Yolanda Seo PA-C - 05/04/2024 11:39 AM EST Images from the original note were not included. [facility]est[facility] PATIENT PREOPERATIVE INSTRUCTIONS Micki Marcelino MD has scheduled you for your procedure at this surgery center: [facility]: [phone] --[id number] [id number] Location is near [facility]. Please read below carefully for your personalized [...] office. If you are currently using a ebxp-shv-otft injectable or oral medication for diabetes or [...] Please follow your surgeon's instructions regarding which hfeh-xpl-rexccwe supplements and blood thinners you need to [...] Procedures: - YOU MUST HAVE A RESPONSIBLE TYRE FINISHER AND EXAMINER TAKE YOU HOME. A BICYCLE REPAIR TECHNICIAN OR SECURITY VEHICLE PATROL OFFICER CANNOT BE MADE A RESPONSIBLE TYRE FINISHER AND EXAMINER. - We recommend that a responsible person [...] Yolanda Seo PA-C documented in this encounter [facility] 05-04-2024 History and physical note Images from the original note were not included. PREANESTHESIA CONSULT CLINIC TELEHEALTH VISIT Patient has been identified by name and date of : Yes This is a virtual visit using [employer] Video Visit. It require patient-provider interaction for [...] visit. Either the patient or their legal parts representative has been informed of the risks [...] lisinopril. Her most recent BP reading in [facility] was 126/80 on 1/21. Patient questions the validity of this reading. She states she has gotten readings such as 140/110 at home. Patient will check home BP readings and keep me updated. Encouraged patient to reach out to PCP and/or mobility specialist if the readings are consistently elevated. She plans to do this 4. Chemotherapy-induced cardiomyopathy (HCC) Patient follows with cardiology due to borderline abnormal global myocardial strain pattern. She is on losartan daily. Patient is very active and asymptomatic. She denies CP, SOB, orthopnea, edema, syncope. Her most recent EF on echocardiogram 08/27/2023 was 59%. Cyber Security Engineer note reviewed from 10/09/2023 mentions recommendations for [...] (HCC) followed by Dr. Husam Hart in [place] PAST SURGICAL HISTORY Procedure Laterality Date ARTHRP ACETBLR/PROX FEM PROSTC AGRFT/ALGRFT Right 03/20/2019 Hip replacement, total ARTHRP KNE CONDYLE&PLATU MEDIAL&LAT COMPARTMENTS Left 02/2016 BIOPSY BREAST OPEN INCISIONAL Left 2007 [facility] benign pathology per patient BREAST RECONSTRUCTION Left [...] ML BY MOUTH THEN SPIT ONCE WEEKLY [employer] FinancialTOUCH ULTRA PLUS TEST strp 1 Each two [...] fevers. Neuro: No history of TIA's, stroke, LOGISTICS TEAM LEADER tumor, impaired sensorium, hemiplegia, paraplegia or quadraplegia. No neurological symptoms or problems. Respiratory: Positive for URI - onset of symptoms 04/25 - nasal congestion, productive cough and fatigue. COVID-19 and flu testing negative. No fever. Improving - AM cough productive green sputum that is progressively improving, Negative for Asthma, COPD Cardiovascular: Positive for: Hypertension, history of cardiomyopathy during chemotherapy 2018, Negative for Recent ME, Angina, CAD, Chest Pain, Valvular Heart Disease, DVT/PE GI: Positive for GERD, PBC, Negative for Nausea, Vomiting, Abdominal pain, Hepatitis, Pancreatitis : No history of dysuria, frequency or incontinence,, stones or chronic kidney disease STUDIO HAND: Negative for abnormal vaginal bleeding, abnormal vaginal [...] internal mammary merlyn involvement) MX stage IIIC ER/GA positive, HER2 non overexpressed invasive ductal carcinoma of the right breast. -KPS is 100%. -PET scan indicated disease left chest wall and mediastinal lymph nodes. -MRI brain negative. -Biopsy-proven disease recurrence left chest wall inferior and posterior to implant. -ER positive (99% strong staining intensity), GA positive (2% with strong staining intensity), HER2 2+; nonamplified by FISH testing. 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 -MRI Breast 03/28/2023 demonstrated PD and therapy was rotated to Faslodex and Afinitor. Oncology at [facility] recommended exemestane with Afinitor. -Symptomatically tolerating well. [...] monitor blood pressures to share with her mobility specialist and PCP. Plan: -Continue Cozaar and follow-up [...] which included preparing to see the patient, [id number] patient care, completing clinical documentation, obtaining and/or [...] DATE: 05/04/2024 TIME: 11:10 AM PAGER/CONTACT #: [facility] 05-04-2024 History and physical note Images from the original note were not included. PREANESTHESIA CONSULT CLINIC TELEHEALTH VISIT Patient has been identified by name and date of : Yes This is a virtual visit using [employer] Video Visit. It require patient-provider interaction for [...] visit. Either the patient or their legal parts representative has been informed of the risks [...] lisinopril. Her most recent BP reading in [facility] was 126/80 on 04/28. Patient questions the validity of this reading. She states she has gotten readings such as 140/110 at home. Patient will check home BP readings and keep me updated. Encouraged patient to reach out to PCP and/or mobility specialist if the readings are consistently elevated. She plans to do this 4. Chemotherapy-induced cardiomyopathy (HCC) Patient follows with cardiology due to borderline abnormal global myocardial strain pattern. She is on losartan daily. Patient is very active and asymptomatic. She denies CP, SOB, orthopnea, edema, syncope. Her most recent EF on echocardiogram 08/27/2023 was 59%. Cyber Security Engineer note reviewed from 10/09/2023 mentions recommendations for [...] (HCC) followed by Dr. Husam Hart in [place] PAST SURGICAL HISTORY Procedure Laterality Date ARTHRP ACETBLR/PROX FEM PROSTC AGRFT/ALGRFT Right 03/20/2019 Hip replacement, total ARTHRP KNE CONDYLE&PLATU MEDIAL&LAT COMPARTMENTS Left 02/2016 BIOPSY BREAST OPEN INCISIONAL Left 2007 [facility] benign pathology per patient BREAST RECONSTRUCTION Left [...] fevers. Neuro: No history of TIA's, stroke, LOGISTICS TEAM LEADER tumor, impaired sensorium, hemiplegia, paraplegia or quadraplegia. No neurological symptoms or problems. Respiratory: Positive for URI - onset of symptoms 04/25 - nasal congestion, productive cough and fatigue. COVID-19 and flu testing negative. No fever. Improving - AM cough productive green sputum that is progressively improving, Negative for Asthma, COPD Cardiovascular: Positive for: Hypertension, history of cardiomyopathy during chemotherapy 2017, Negative for Recent ME, Angina, CAD, Chest Pain, Valvular Heart Disease, DVT/PE GI: Positive for GERD, PBC, Negative for Nausea, Vomiting, Abdominal pain, Hepatitis, Pancreatitis : No history of dysuria, frequency or incontinence,, stones or chronic kidney disease STUDIO HAND: Negative for abnormal vaginal bleeding, abnormal vaginal [...] internal mammary merlyn involvement) MX stage IIIC ER/GA positive, HER2 non overexpressed invasive ductal carcinoma of the right breast. -KPS is 100%. -PET scan indicated disease left chest wall and mediastinal lymph nodes. -MRI brain negative. -Biopsy-proven disease recurrence left chest wall inferior and posterior to implant. -ER positive (99% strong staining intensity), GA positive (2% with strong staining intensity), HER2 2+; nonamplified by FISH testing. 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 -MRI Breast 03/28/2023 demonstrated PD and therapy was rotated to Faslodex and Afinitor. Oncology at [facility] recommended exemestane with Afinitor. -Symptomatically tolerating well. [...] monitor blood pressures to share with her mobility specialist and PCP. Plan: -Continue Cozaar and follow-up [...] which included preparing to see the patient, [id number] patient care, completing clinical documentation, obtaining and/or [...] AM PAGER/CONTACT #: documented in this encounter [facility] 04-28-2024 Note Addended by: CARLA FORBES on: 04/28/2024 05:49 PM Modules accepted: Orders [facility] 04-28-2024 Miscellaneous Notes Addended by: CARLA FORBES on: 04/28/2024 05:49 PM Modules accepted: Orders documented in this encounter [facility] 04-28-2024 History of Present illness Narrative Radiology [...] PATIENT PRESENTS WITH AN IMPLANTABLE OR ATTACHED BAND INSTRUMENT MAKER: No RADIOLOGY DEPARTMENT: General X-ray: Exam(s) Completed: Chest X-Ray PERIPHERAL IV DATA: Not applicable SIGNED BY: RT Nicolasa(R) April 28, 2024 3:40 PM documented in this encounter [facility] 04-28-2024 Note [facility] 04-28-2024 Note [facility] 04-28-2024 History of Present illness Narrative [...] history is provided by the patient. No russian language instructor was used. Nasal Congestion This is a [...] (HCC) followed by Dr. Husam Hart in [place] PAST SURGICAL HISTORY Procedure Laterality Date ARTHRP ACETBLR/PROX FEM PROSTC AGRFT/ALGRFT Right 03/20/2019 Hip replacement, total ARTHRP KNE CONDYLE&PLATU MEDIAL&LAT COMPARTMENTS Left 02/2016 BIOPSY BREAST OPEN INCISIONAL Left 2007 [facility] benign pathology per patient BREAST RECONSTRUCTION Left [...] tablet by mouth at bedtime as needed. BlueT[employer] FinancialTOUCH ULTRA PLUS TEST strp 1 Each two [...] sooner if worsening of symptoms Carla Forbes APRN.SECURITY GUARD DISPATCHER documented in this encounter [facility] 04-28-2024 Telephone encounter Note Patient calling with request for evaluation of respiratory sx's. Denies any severe symptoms such as chest pain, SOB, dizziness or weakness. No appts available this afternoon at this [facility]. Patient agreeable to come to [facility] for evaluation now, as she wishes to begin treatment now, if indicated. Susana Mix RN [facility] 04-28-2024 Miscellaneous Notes Patient calling with request for evaluation of respiratory sx's. Denies any severe symptoms such as chest pain, SOB, dizziness or weakness. No appts available this afternoon at this [facility]. Patient agreeable to come to [facility] for evaluation now, as she wishes to begin treatment now, if indicated. Susana Mix RN documented in this encounter [facility] 04-24-2024 History of Present illness Narrative Program_ID:[id number] Access Code: [email or web address] URL: [email or web address] Date: 04-24-2024 Prepared By: Bobbi Vanegas Program [...] Goals for Episode of Care: established 04/24/24 [place] in home exercise program. 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 Patient education as noted. Self-Fdc Management: 1: Educated pt on options for [...] Bobbi Vanegas PT documented in this encounter [facility] 04-24-2024 Note [facility] 04-15-2024 Note HNO ID: [id number] Author: NINI RUSSELL MA Service: ? Author Type: Drapery Sewer Hand Type: Progress Notes Filed: 04/15/2024 12:41 Note Text: [facility] 04-15-2024 History of Present illness Narrative [...] 4 oz (regular pop) 4 oz Dinner Warba or Steak or Chicken OR pasta with [...] (HCC) followed by Dr. Husam Hart in [place] PAST SURGICAL HISTORY Procedure Laterality Date ARTHRP ACETBLR/PROX FEM PROSTC AGRFT/ALGRFT Right 03/20/2019 Hip replacement, total ARTHRP KNE CONDYLE&PLATU MEDIAL&LAT COMPARTMENTS Left 02/2016 BIOPSY BREAST OPEN INCISIONAL Left 2007 [facility] benign pathology per patient BREAST RECONSTRUCTION Left [...] BY MOUTH THEN SPIT ONCE WEEKLY Insulin Hamer, Disposable, (PEN NEEDLE) 32 gauge x 5/32 [...] BMI 27.33 kg/m BP this morning at [facility] 160/110 GENERAL: alert and appropriate, in [...] Daisy Titus CNP documented in this encounter [facility] 04-15-2024 Note [facility] 04-13-2024 Telephone encounter Note Spoke to patient Discussed surgery date of Thursday 05/[address] Bingham and Dr. Marcelino which she agreed to Will see for preops the week prior Advised to stop Aromasin one week prior to surgery which pt verbalized understanding Cayla Charles PA-C April 13, 2024 2:20 PM [facility] 04-13-2024 Miscellaneous Notes Spoke to patient Discussed surgery date of Thursday 05/[address] Bingham and Dr. Marcelino which she agreed to Will see for preops the week prior Advised to stop Aromasin one week prior to surgery which pt verbalized understanding Cayla Charles PA-C April 13, 2024 2:20 PM documented in this encounter [facility] 04-13-2024 Telephone encounter Note Apurva as directed [facility] 04-13-2024 Miscellaneous Notes Apurva as directed PSS [...] to 4 months. documented in this encounter [facility] 04-13-2024 Telephone encounter Note Spoke with pt, informed of negative ultrasound .Please refer to physical therapy for lymphedema. Pt. Voiced understanding. Kasie Lamb LPN [facility] 04-13-2024 Miscellaneous Notes Spoke with pt, informed of negative ultrasound .Please refer to physical therapy for lymphedema. Pt. Voiced understanding. Kasie Lamb LPN Can let her know that ultrasound left arm was negative for blood clot. Please refer to physical therapy for lymphedema. Order filed. documented in this encounter [facility] 04-13-2024 Telephone encounter Note Can let her know that ultrasound left arm was negative for blood clot. Please refer to physical therapy for lymphedema. Order filed. [facility] 04-13-2024 Telephone encounter Note PSS please reach out to schedule with pt. for repeat PET scan several days before I see her in 3 to 4 months. Kasie Lamb LPN [facility] 04-13-2024 Telephone encounter Note It means they have took some of the tracer that was injected in the right arm. They are not cancerous. Serena Carrasco DO [facility] 04-13-2024 History of Present illness Narrative [...] PATIENT PRESENTS WITH AN IMPLANTABLE OR ATTACHED BAND INSTRUMENT MAKER: No RADIOLOGY DEPARTMENT: Ultrasound PERIPHERAL IV DATA: Not applicable SIGNED BY: Luann Clarke RDMS, RVT April 13, 2024 10:58 AM documented in this encounter [facility] 04-13-2024 Note HNO ID: [id number] Author: LUANN CLARKE RT (R) Service: ? [...] PATIENT PRESENTS WITH AN IMPLANTABLE OR ATTACHED BAND INSTRUMENT MAKER: No RADIOLOGY DEPARTMENT: Ultrasound PERIPHERAL IV DATA: Not applicable SIGNED BY: Luann Clarke RDMS, RVT April 13, 2024 10:58 AM [facility] 04-13-2024 Telephone encounter Note Pt. Contacted concerning results of PET , she questioned what this means Mild activity in the right axillary lymph nodes likely reactive. So she can have a better understanding. PET orders pended, please sign Kasie Lamb LPN [facility] 04-11-2024 Telephone encounter Note Please place order [facility] 04-10-2024 Telephone encounter Note Can let her know PET scan shows stable findings. Mild uptake in the previous areas posterior to the breast. No progression of cancer. We will continue current therapy. Please schedule for repeat PET scan several days before I see her in 3 to 4 months. [facility] 04-10-2024 Note [facility] 04-10-2024 History of Present illness Narrative Diagnosis: 1) Breast cancer. HPI: The patient is a 64-year-old female who has a past medical history significant for hypertension and primary biliary cirrhosis. 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 Most recent liver chemistries performed at [facility] on 01/10/2017 showed a total bilirubin of [...] Evidently she was on a trip to [place] about 2 1/2 years ago when she [...] greatest length). ER (clone 6F11) >95%, strong GA (clone 16/1E2) >95%, strong Her-2Neu (clone CB11) [...] Previously performed (HER2) ERBB2 Status: Previously performed Lace Weaver Tumor Block: Specify: B3 Residual tumor burden: Tumor bed dimension #1: 8 mm Tumor bed dimension #2: 5 mm Overall tumor cellularity 50% Percentage in situ 3% Comment: Please see [id number] for the results of estrogen and progesterone [...] was performed on block A1 at the [facility] and compared to appropriate reactive controls. The [...] everolimus second week April 2023. Was at [facility]. Had PET scan on 05/02. Demonstrated stable [...] discussed with the Patient or Patient's Authorized Lace Weaver. As applicable, any other physician, advance practice provider, medical student, or other health professional student that will be observing or involved in the sensitive examination for educational or training purposes was discussed with the Patient or Authorized Lace Weaver. The Patient or Authorized Lace Weaver has agreed to proceed with the sensitive [...] internal mammary merlyn involvement) MX stage IIIC ER/GA positive, HER2 non overexpressed invasive ductal carcinoma of the right breast. -KPS is 100%. -PET scan indicated disease left chest wall and mediastinal lymph nodes. -MRI brain negative. -Biopsy-proven disease recurrence left chest wall inferior and posterior to implant. -ER positive (99% strong staining intensity), GA positive (2% with strong staining intensity), HER2 2+; nonamplified by FISH testing. 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 -MRI Breast 03/28/2023 demonstrated PD and therapy was rotated to Faslodex and Afinitor. Oncology at [facility] recommended exemestane with Afinitor. -Symptomatically tolerating well. [...] monitor blood pressures to share with her mobility specialist and PCP. Plan: -Continue Cozaar and follow-up [...] which included preparing to see the patient, [id number] patient care, completing clinical documentation, obtaining and/or reviewing separately obtained history, performing a medically appropriate examination, counseling and educating the patient/family/caregiver, communicating with other HCPs (not separately reported), and communicating results to the patient/family/caregiver. Serena Carrasco DO documented in this encounter [facility] 04-06-2024 History of Present illness Narrative RADIOLOGY [...] PATIENT PRESENTS WITH AN IMPLANTABLE OR ATTACHED BAND INSTRUMENT MAKER: No CREATININE: Creatinine Date Value Ref Range [...] safety can be found using this link: [email or web address] %[email or web address] SIGNATURE: PATRICIA Ying) PATIENT NAME: Pat Sorto DATE: April 06, 2024 TIME: 9:00 AM PAGER/CONTACT #: documented in this encounter [facility] 04-06-2024 Note HNO ID: [id number] Author: MYLA DO RT (R) Service: Nuclear [...] PATIENT PRESENTS WITH AN IMPLANTABLE OR ATTACHED BAND INSTRUMENT MAKER: No CREATININE: Creatinine Date Value Ref Range [...] 0854 PATIENT DISCHARGED TO: Ambulatory patient, left [place] department area. Is this a therapy: No A Diagnostic radioactive procedure has taken place, with no further precautions necessary other than routine body substance precautions. More information regarding radiation safety can be found using this link: [email or web address] [email or web address] 20Diagnostic%20Nuclear%20Medicine% 20Procedures.pdf SIGNATURE: RT Deonna(R) PATIENT NAME: Pat Sorto DATE: April 06, 2024 TIME: 9:00 AM PAGER/CONTACT #: [facility] 03-25-2024 Note HNO ID: [id number] Author: DELMY PRIDE ST Service: ? Author Type: Surg Telegraph Plant Maintainer Type: Progress Notes Filed: 03/25/2024 11:26 Note Text: DATE OF PHOTOS: 03/25/2024 Body Part: Jermaine ST HANNA March 25, 2024 11:26 AM [facility] 03-25-2024 History of Present illness Narrative DATE OF PHOTOS: 03/25/2024 Body Part: Jermaine ST HANNA March 25, 2024 11:26 AM documented in this encounter [facility] 03-25-2024 History of Present illness Narrative Radiology Service Progress Note PATIENT NAME: Pat Sorto DATE OF SERVICE: March 25, 2024 [...] PATIENT PRESENTS WITH AN IMPLANTABLE OR ATTACHED BAND INSTRUMENT MAKER: No RADIOLOGY DEPARTMENT: Mammography PERIPHERAL IV DATA: Not applicable SIGNED BY: RT Gilson(R) March 25, 2024 11:20 AM documented in this encounter [facility] 03-25-2024 Note [facility] 03-25-[address] Peace is prescribing losartan 50 mg. Rx refill refused. Confirmed with patient. Svetlana Kong LPN [facility] 03-25-[address] Peace is prescribing losartan 50 mg. Rx refill refused. Confirmed with patient. Svetlana Kong LPN documented in this encounter [facility] 03-25-2024 History of Present illness Narrative BREAST [...] [facility] Medications Medication Sig Dispense Refill [...] BY MOUTH THEN SPIT ONCE WEEKLY Insulin Hamer, Disposable, (PEN NEEDLE) 32 gauge x 5/32 Inject 1 Each subcutaneously every 24 hours. Give with each insulin administration. 100 Each 3 exemestane (AROMASIN) 25 mg tablet TAKE ONE TABLET BY MOUTH DAILY AFTER A MEAL 90 tablet 5 diphenhydrAMINE-Acetaminophen (TYLENOL PM EXTRA STRENGTH) 25-500 mg tab Take 1 tablet by mouth at bedtime as needed. Blue[employer] FinancialTOUCH ULTRA PLUS TEST strp 1 Each two [...] Past Histories independently gathered by the clinical software support technician and the remaining scribed note accurately describes [...] Micki Marcelino MD documented in this encounter [facility] 03-25-2024 History of Present illness Narrative LAST [...] scheduled 04/06/24 HISTORY: Presented in 2018 with ER/GA positive, HER2 negative left LABC [id number] Stage IIIC Neoadjuvant course :ddACx4, Taxol x12 [...] discussed with the Patient or Patient's Authorized Lace Weaver. As applicable, any other physician, advance practice provider, medical student, or other health professional student that will be observing or involved in the sensitive examination for educational or training purposes was discussed with the Patient or Authorized Lace Weaver. The Patient or Authorized Lace Weaver has agreed to proceed with the sensitive [...] related IMPRESSION/PLAN: PBC HTN 2018: Stage IIIC ER/GA positive, HER2 negative left breast cancer treated; [...] which included preparing to see the patient, [id number] patient care, completing clinical documentation, obtaining and/or reviewing separately obtained history, performing a medically appropriate examination, counseling and educating the patient/family/caregiver, ordering medications, tests, or procedures, communicating with other HCPs (not separately reported), independently interpreting results (not separately reported), communicating results to the patient/family/caregiver, and care coordination (not separately reported). Eliz Bingham MD documented in this encounter [facility] 03-25-2024 Note [facility] 03-25-2024 Note [facility] 03-18-2024 Instructions Jacinta Rivas MD - 03/18/2024 2:33 PM EST - Increase Losartan dosage to 50 mg daily to better manage blood pressure. - Monitor blood pressure regularly and report any significant changes. - Continue current insulin regimen; contact your panel gluer to discuss potential adjustments to better control [...] excessive tearing. - Follow up with your agricultural produce commission agent to discuss potential cataract surgery and eyelid surgery to improve vision and reduce tearing. - Follow up with your surgeon to discuss the removal of the implant that is causing discomfort. - Follow up with your electronics production supervisor to monitor liver function and address any potential issues. - Follow up with your mobility specialist to monitor heart function and address any potential issues. - Follow up with your panel gluer to monitor blood sugar levels and adjust insulin dosage as needed. - Follow up with your oncologist to monitor the effectiveness of Afinitor and address any potential side effects. - Follow up with your primary care physician to monitor overall health and address any new or ongoing concerns. documented in this encounter [facility] 03-18-2024 Note [facility] 03-18-2024 History of Present illness Narrative This note was created using [employer]. Subjective Pat Sorto is a 64 year [...] currently taking losartan 25 mg, but her mobility specialist, Dr. Peace, has recommended increasing the dosage [...] it. She denies any issues with deglutition. Pat also reports persistent epiphora, which she attributes [...] under the care of an oncologist at [facility] in [place], [place], and has a PET scan scheduled for the end of the month. She is also following up with a electronics production supervisor for liver issues and is under the care of an panel gluer for diabetes management. She denies any recent [...] (HCC) followed by Dr. Husam Hart in [place] Current Outpatient Medications Medication Sig LORazepam (ATIVAN) [...] BY MOUTH THEN SPIT ONCE WEEKLY Insulin Hamer, Disposable, (PEN NEEDLE) 32 gauge x 5/32 Inject 1 Each subcutaneously every 24 hours. Give with each insulin administration. exemestane (AROMASIN) 25 mg tablet TAKE ONE TABLET BY MOUTH DAILY AFTER A MEAL diphenhydrAMINE-Acetaminophen (TYLENOL PM EXTRA STRENGTH) 25-500 mg tab Take 1 tablet by mouth at bedtime as needed. Blue[employer] FinancialTOUCH ULTRA PLUS TEST strp 1 Each two [...] 4.00 k/uL 1.46 1.65 1.85 1.94 1.41 Williams% % 8.7 7.0 9.7 7.2 7.7 Abs Williams <0.87 k/uL 0.53 0.45 0.59 0.67 0.46 [...] to 50 mg as previously recommended by mobility specialist Dr. Peace. - Discussed the importance of [...] Jacinta Rivas MD documented in this encounter [facility] 03-11-2024 Telephone encounter Note Rx pended. Svetlana Kong LPN [facility] 03-11-2024 Miscellaneous Notes Rx pended. Svetlana Kong LPN documented in this encounter [facility] 03-09-2024 Telephone encounter Note Prescription Refill Information [...] Lamb LPN March 09, 2024 11:12 AM [facility] 03-09-2024 Miscellaneous Notes Prescription Refill Information The [...] 2024 11:12 AM documented in this encounter [facility] 02-27-2024 Telephone encounter Note Spoke with Pat. She will come in and meet with Dr Bingham and Dr Marcelino on 03/25 at 0830. Will schedule her imaging that day also. No further questions. She will check in and go to Dr Marcelino office. [facility] 02-27-2024 Miscellaneous Notes Spoke with Pat. She will come in and meet with Dr Bingham and Dr Marcelino on 03/25 at 0830. Will schedule her imaging that day also. No further questions. She will check in and go to Dr Marcelino office. documented in this encounter [facility] 02-26-2024 Telephone encounter Note Spoke to patient Advised will r/s apts today with Dr. Bingham and Dr. Marcelino as the purpose would be to be seen together simultaneously Will look into April after her PET scan Will r/s her mammogram in [place] for the right side Pt agreeable Cayla Charles PA-C February 26, 2024 8:44 AM [facility] 02-26-2024 Miscellaneous Notes Spoke to patient Advised will r/s apts today with Dr. Bingham and Dr. Marcelino as the purpose would be to be seen together simultaneously Will look into April after her PET scan Will r/s her mammogram in [place] for the right side Pt agreeable Cayla Charles PA-C February 26, 2024 8:44 AM documented in this encounter [facility] [facility] 02-25-2024 History of Present illness Narrative Primary Care Pharmacy Visit CC (Reason for Consult): (E11.9) Type 2 diabetes mellitus without complication, unspecified whether long term care administrator insulin use (HCC) (primary encounter diagnosis) Goal(s): [...] at that dose. 10 mL 3 Insulin Hamer, Disposable, (PEN NEEDLE) 32 gauge x Inject [...] 2 diabetes mellitus without complication, unspecified whether senior living insulin use (HCC) - ICD9: 250.00, ICD10: [...] Tatianna Crook, Last, BCACP Primary Care Clinical Supervisor [employer] documented in this encounter [facility] 02-25-2024 Note [facility] 02-18-2024 History of Present illness Narrative [...] PATIENT PRESENTS WITH AN IMPLANTABLE OR ATTACHED BAND INSTRUMENT MAKER: No RADIOLOGY DEPARTMENT: MR; Exam(s) Completed: Chest: Breast PERIPHERAL IV DATA: Site assessment: Clean,Dry and Intact, Site disposition Discontinued SIGNED BY: HAYDEE Andrews February 18, 2024 10:28 AM documented in this encounter [facility] 02-18-2024 Note HNO ID: [id number] Author: BIANCA LE RN Service: Radiology Author [...] DATE: February 18, 2024 TIME: 9:58 AM [facility] 02-18-2024 Note HNO ID: [id number] Author: JABARI HILL MRI Tech Service: Radiology [...] PATIENT PRESENTS WITH AN IMPLANTABLE OR ATTACHED BAND INSTRUMENT MAKER: No RADIOLOGY DEPARTMENT: MR; Exam(s) Completed: Chest: Breast PERIPHERAL IV DATA: Site assessment: Clean,Dry and Intact, Site disposition Discontinued SIGNED BY: Jabari Hill [employer] February 18, 2024 10:28 AM [facility] 02-05-2024 Note HNO ID: [id number] Author: NINI RUSSELL MA Service: ? Author Type: Drapery Sewer Hand Type: Progress Notes Filed: 02/05/2024 14:52 Note Text: [facility] 02-05-2024 History of Present illness Narrative [...] 4 oz (regular pop) 4 oz Dinner Warba or Steak or Chicken OR pasta with [...] (HCC) followed by Dr. Husam Hart in [place] PAST SURGICAL HISTORY Procedure Laterality Date ARTHRP ACETBLR/PROX FEM PROSTC AGRFT/ALGRFT Right 03/20/2019 Hip replacement, total ARTHRP KNE CONDYLE&PLATU MEDIAL&LAT COMPARTMENTS Left 02/2016 BIOPSY BREAST OPEN INCISIONAL Left 2007 [facility] benign pathology per patient BREAST RECONSTRUCTION Left [...] mouth once daily. TAKE AFTER A MEAL. TeravacUCH ULTRA PLUS TEST strp 1 Each two [...] Daisy Titus CNP documented in this encounter [facility] 02-05-2024 Note [facility] 01-13-2024 Note [facility] 01-13-2024 History of Present illness Narrative [...] (HCC) followed by Dr. Husam Hart in [place] PAST SURGICAL HISTORY Procedure Laterality Date ARTHRP ACETBLR/PROX FEM PROSTC AGRFT/ALGRFT Right 03/20/2019 Hip replacement, total ARTHRP KNE CONDYLE&PLATU MEDIAL&LAT COMPARTMENTS Left 02/2016 BIOPSY BREAST OPEN INCISIONAL Left 2007 [facility] benign pathology per patient BREAST RECONSTRUCTION Left [...] Subhash Avila PA-C documented in this encounter [facility] 01-13-2024 History of Present illness Narrative Radiology [...] PATIENT PRESENTS WITH AN IMPLANTABLE OR ATTACHED BAND INSTRUMENT MAKER: No RADIOLOGY DEPARTMENT: General X-ray: Exam(s) Completed: Pelvis X-Ray: Pelvis with Hip Right and Wt. Bearing PERIPHERAL IV DATA: Not applicable SIGNED BY: SUDHIR Irvin January 13, 2024 1:56 PM documented in this encounter [facility] 01-13-2024 Note HNO ID: [id number] Author: KODI REED CT Service: Radiology Author [...] PATIENT PRESENTS WITH AN IMPLANTABLE OR ATTACHED BAND INSTRUMENT MAKER: No RADIOLOGY DEPARTMENT: General X-ray: Exam(s) Completed: Pelvis X-Ray: Pelvis with Hip Right and Wt. Bearing PERIPHERAL IV DATA: Not applicable SIGNED BY: SUDHIR Irvin January 13, 2024 1:56 PM [facility] 01-07-2024 History of Present illness Narrative Primary Care Pharmacy Visit CC (Reason for Consult): (E11.9) Type 2 diabetes mellitus without complication, unspecified whether senior living insulin use (HCC) (primary encounter diagnosis) Goal(s): [...] been pretty active recently; gets in about [id number] steps/day Current DM Medications: Glipizide XL 5 [...] 2 diabetes mellitus without complication, unspecified whether long term care administrator insulin use (HCC) - ICD9: 250.00, ICD10: [...] Tatianna Crook, BipinD, BCACP Primary Care Clinical Supervisor [employer] documented in this encounter [facility] 01-07-2024 Note [facility] 01-06-2024 Telephone encounter Note Discussed regroup with Dr Bingham and meeting with Dr Marcelino regarding implant removal on Feb 25. Will have MRI the week prior at [place] on Feb 17. Pat verbalized understanding. No further questions. [facility] 01-06-2024 Miscellaneous Notes Discussed regroup with Dr Bingham and meeting with Dr Marcelino regarding implant removal on Feb 25. Will have MRI the week prior at [place] on Feb 17. Pat verbalized understanding. No further questions. documented in this encounter [facility] 01-06-2024 Note [facility] 01-06-2024 History of Present illness Narrative Diagnosis: 1) Breast cancer. HPI: The patient is a 63-year-old female who has a past medical history significant for hypertension and primary biliary cirrhosis. 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 Most recent liver chemistries performed at [facility] on 01/10/2017 showed a total bilirubin of [...] Evidently she was on a trip to [place] about 2 1/2 years ago when she [...] greatest length). ER (clone 6F11) >95%, strong GA (clone 16/1E2) >95%, strong Her-2Neu (clone CB11) [...] Previously performed (HER2) ERBB2 Status: Previously performed Lace Weaver Tumor Block: Specify: B3 Residual tumor burden: Tumor bed dimension #1: 8 mm Tumor bed dimension #2: 5 mm Overall tumor cellularity 50% Percentage in situ 3% Comment: Please see [id number] for the results of estrogen and progesterone [...] was performed on block A1 at the [facility] and compared to appropriate reactive controls. The [...] everolimus second week April 2023. Was at [facility]. Had PET scan on 05/02. Demonstrated stable [...] discussed with the Patient or Patient's Authorized Lace Weaver. As applicable, any other physician, advance practice provider, medical student, or other health professional student that will be observing or involved in the sensitive examination for educational or training purposes was discussed with the Patient or Authorized Lace Weaver. The Patient or Authorized Lace Weaver has agreed to proceed with the sensitive [...] SKIN: No jaundice or rash. LABS: PET [facility] on 05/02/2023. Resolution of FDG avid mediastinal [...] internal mammary merlyn involvement) MX stage IIIC ER/GA positive, HER2 non overexpressed invasive ductal carcinoma of the right breast. -KPS is 100%. -PET scan indicated disease left chest wall and mediastinal lymph nodes. MRI brain negative. -Biopsy-proven disease recurrence left chest wall inferior and posterior to implant. -ER positive (99% strong staining intensity), GA positive (2% with strong staining intensity), HER2 2+; nonamplified by FISH testing. 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 -MRI Breast 03/28/2023 demonstrated PD and therapy was rotated to Faslodex and Afinitor. Oncology at [facility] recommended exemestane with Afinitor. -Hyperglycemia from Afinitor. [...] which included preparing to see the patient, anzu-wk-atoo patient care, completing clinical documentation, obtaining and/or reviewing separately obtained history, performing a medically appropriate examination, counseling and educating the patient/family/caregiver, ordering medications, tests, or procedures, communicating with other HCPs (not separately reported), and communicating results to the patient/family/caregiver. Serena Carrasco DO documented in this encounter [facility] 01-02-2024 Telephone encounter Note [phone] RIGHT HIP PAIN NO SCHED FOR PROVIDER PLEASE CLL TO DOROTHEAED/ADVISE LAST SEEN 2021 Please call patient to set up an appointment with Subhash Avila [facility] 01-02-2024 Miscellaneous Notes [phone] RIGHT HIP PAIN NO SCHED FOR PROVIDER PLEASE CLL TO DOROTHEAED/ADVISE LAST SEEN 2021 Please call patient to set up an appointment with Subhash Avila documented in this encounter [facility] 12-30-2023 History of Present illness Narrative RADIOLOGY [...] PATIENT PRESENTS WITH AN IMPLANTABLE OR ATTACHED BAND INSTRUMENT MAKER: No CREATININE: Creatinine Date Value Ref Range [...] 0757 PATIENT DISCHARGED TO: Ambulatory patient, left [place] department area. A Diagnostic radioactive procedure has taken place, with no further precautions necessary other than routine body substance precautions. More information regarding radiation safety can be found using this link: [email or web address] %[email or web address] SIGNATURE: PATRICIA Hou) PATIENT NAME: Pat Sorto DATE: December 30, 2023 TIME: 8:09 AM PAGER/CONTACT #: documented in this encounter [facility] 12-30-2023 Note HNO ID: [id number] Author: JOSE SCOTT RT (R) Service: Radiology [...] PATIENT PRESENTS WITH AN IMPLANTABLE OR ATTACHED BAND INSTRUMENT MAKER: No CREATININE: Creatinine Date Value Ref Range [...] 0757 PATIENT DISCHARGED TO: Ambulatory patient, left [place] department area. A Diagnostic radioactive procedure has taken place, with no further precautions necessary other than routine body substance precautions. More information regarding radiation safety can be found using this link: [email or web address] [email or web address]-% 20Diagnostic%20Nuclear%20Medicine% 20Procedures.pdf SIGNATURE: RT Ameya(R) PATIENT NAME: Pat Sorto DATE: December 30, 2023 TIME: 8:09 AM PAGER/CONTACT #: [facility] 12-02-2023 History of Present illness Narrative Primary Care Pharmacy Visit CC (Reason for Consult): (E11.9) Type 2 diabetes mellitus without complication, unspecified whether long term care administrator insulin use (HCC) (primary encounter diagnosis) (Z79.899) [...] 2 diabetes mellitus without complication, unspecified whether senior living insulin use (HCC) - ICD9: 250.00, ICD10: [...] Tatianna Crook PharmD, BCACP Primary Care Clinical Supervisor [employer] documented in this encounter [facility] 12-02-2023 Note [facility] 11-19-2023 History of Present illness Narrative [...] PATIENT PRESENTS WITH AN IMPLANTABLE OR ATTACHED BAND INSTRUMENT MAKER: No RADIOLOGY DEPARTMENT: Ultrasound PERIPHERAL IV DATA: Not applicable SIGNED BY: Luann Clarke RDMS, BRENDEN November 19, 2023 10:53 AM documented in this encounter [facility] 11-19-2023 Note HNO ID: [id number] Author: LUANN CLARKE RT(R) Service: ? Author [...] PATIENT PRESENTS WITH AN IMPLANTABLE OR ATTACHED BAND INSTRUMENT MAKER: No RADIOLOGY DEPARTMENT: Ultrasound PERIPHERAL IV DATA: Not applicable SIGNED BY: Luann Clarke RDMS, RVDelonte November 19, 2023 10:53 AM [facility] 11-13-2023 Miscellaneous Notes Rx sent Tatianna Crook PharmD, BCACP Primary Care Clinical Supervisor [employer] [facility] [place] calling with request for new script for Glucometer. Patient's test strips were changed to One Touch Ultra 2 and they need glucometer script to match. Pharmacist states okay to order generic meter. Pended. Navya Perez RN documented in this encounter [facility] 11-13-2023 Telephone encounter Note Rx sent Tatianna Crook PharmD, BCACP Primary Care Clinical Supervisor [employer] [facility] Work Phone: 11-13-2023 Telephone encounter Note [facility] [place] calling with request for new script for Glucometer. Patient's test strips were changed to One Touch Ultra 2 and they need glucometer script to match. Pharmacist states okay to order generic meter. Pended. Navya Perez RN [facility] 11-13-2023 Telephone encounter Note Spoke with patient and scheduled. Karyn Muñoz [facility] 11-13-2023 Miscellaneous Notes Spoke with patient and scheduled. Karyn Muñoz PSS- please contact patient to schedule RUQ US. Patient is expecting the call. Svetlana Kong LPN Filed. Please file order. Patient is expecting a call to schedule. Svetlana Kong LPN Urine culture suggests resolving UTI. Since she was having right upper quadrant pain as part of the presentation, recommend ultrasound liver and gallbladder. Please pend order. Diagnosis right upper quadrant pain documented in this encounter [facility] 11-13-2023 Telephone encounter Note PSS- please contact patient to schedule RUQ US. Patient is expecting the call. Svetlana Kong LPN [facility] 11-13-2023 Telephone encounter Note Filed. [facility] 11-13-2023 Telephone encounter Note Please file order. Patient is expecting a call to schedule. Svetlana Kong LPN [facility] 11-12-2023 Telephone encounter Note Urine culture suggests resolving UTI. Since she was having right upper quadrant pain as part of the presentation, recommend ultrasound liver and gallbladder. Please pend order. Diagnosis right upper quadrant pain [facility] 11-11-2023 History of Present illness Narrative Diagnosis: 1) Breast cancer. HPI: The patient is a 63-year-old female who has a past medical history significant for hypertension and primary biliary cirrhosis. 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 Most recent liver chemistries performed at [facility] on 01/10/2017 showed a total bilirubin of [...] Evidently she was on a trip to [place] about 2 1/2 years ago when she [...] greatest length). ER (clone 6F11) >95%, strong GA (clone 16/1E2) >95%, strong Her-2Neu (clone CB11) [...] Previously performed (HER2) ERBB2 Status: Previously performed Lace Weaver Tumor Block: Specify: B3 Residual tumor burden: Tumor bed dimension #1: 8 mm Tumor bed dimension #2: 5 mm Overall tumor cellularity 50% Percentage in situ 3% Comment: Please see [id number] for the results of estrogen and progesterone receptors and HER2 studies. 3[facility] Stopped 08/20[facility]. Metastatic disease. Had [...] was performed on block A1 at the [facility] and compared to appropriate reactive controls. The [...] everolimus second week April 2023. Was at [facility]. Had PET scan on 05/02. Demonstrated stable [...] Abs Lymph 1.00 - 4.00 k/uL 1.94 Williams% % 7.2 Abs Williams <0.87 k/uL 0.67 Eosin% % 1.1 Abs Eosin <0.46 k/uL 0.10 Baso% % 0.6 Abs Baso <0.11 k/uL 0.06 Immature Gran % % 0.4 IMMATURE GRANS (ABS) <0.10 k/uL 0.04 NRBC /100 WBC 0.0 Absolute nRBC <0.01 k/uL <0.01 DTYPE Auto PET [facility] on 05/02/2023. Resolution of FDG avid mediastinal [...] internal mammary merlyn involvement) MX stage IIIC ER/GA positive, HER2 non overexpressed invasive ductal carcinoma of the right breast. -KPS is 100%. -PET scan indicated disease left chest wall and mediastinal lymph nodes. MRI brain negative. -Biopsy-proven disease recurrence left chest wall inferior and posterior to implant. -ER positive (99% strong staining intensity), GA positive (2% with strong staining intensity), HER2 2+; nonamplified by FISH testing. 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 -MRI Breast 03/28/2023 demonstrated PD and therapy was rotated to Faslodex and Afinitor. At [facility] they recommended exemestane with Afinitor. Changes were [...] which included preparing to see the patient, nacu-qb-qszp patient care, completing clinical documentation, obtaining and/or reviewing separately obtained history, performing a medically appropriate examination, counseling and educating the patient/family/caregiver, ordering medications, tests, or procedures, communicating with other HCPs (not separately reported), and communicating results to the patient/family/caregiver. Serena Carrasco DO documented in this encounter [facility] 11-06-2023 Telephone encounter Note Rx pended. Svetlana Kong LPN [facility] 11-06-2023 Miscellaneous Notes Rx pended. Svetlana Kong LPN documented in this encounter [facility] 11-04-2023 Telephone encounter Note Detailed message left for patient. [facility] 11-04-2023 Miscellaneous Notes Detailed message left for [...] my chart, very abnormal results. Patient uses [facility] for her pharmacy. Please advise documented in this encounter [facility] 11-04-2023 Telephone encounter Note I agree, her repeat urine still indicates infection. I would like to treat her with cipro for 10 days to ensure we get this resolved. [facility] 11-04-2023 Telephone encounter Note Patient calling she did her follow up urine sample, after completing her antibiotic rx on 10/31/2023. Patient is asking if she needs to be placed on stronger antibiotic? she can see her urine results on my chart, very abnormal results. Patient uses [facility] for her pharmacy. Please advise [facility] 10-30-2023 History of Present illness Narrative Primary Care Pharmacy Visit CC (Reason for Consult): (E11.9) Type 2 diabetes mellitus without complication, unspecified whether senior living insulin use (HCC) (primary encounter diagnosis) Goal(s): [...] day. Insulin Dep? No 200 Each 3 mnboedurzoPGVNO-dyadqi-zyflmphmk (BMX 1:1:1) 1:1:1 liqd Take by mouth every 4 hours as needed (mucositis). Magic mouthwash PRN (Patient not taking: Reported on 10/23/2023) aspirin, enteric coated (ASPIRIN, ENTERIC COATED) 81 mg EC tablet Take 81 mg by mouth once daily. CIMAXYJ-HJVOIZJRM-WEHG ORAL Take 1 tablet by mouth once [...] 2 diabetes mellitus without complication, unspecified whether senior living insulin use (HCC) - ICD9: 250.00, ICD10: [...] Tatianna Crook, PharmD, BCACP Primary Care Clinical Supervisor [employer] documented in this encounter [facility] 10-23-2023 History of Present illness Narrative SUBJECTIVE [...] doses. (Patient not taking: Reported on 10/23/2023) azonsxskzsOPWXV-keyrvx-rbuhzolsl (BMX 1:1:1) 1:1:1 liqd Take by mouth every 4 hours as needed (mucositis). Magic mouthwash PRN (Patient not taking: Reported on 10/23/2023) TDFKOIU-SIDZVEQGT-CAOG ORAL Take 1 tablet by mouth once [...] Comment: Added automatically from request for surgery [id number] Stomatitis and Mucositis - 06/28/2017 Antineoplastic Chemotherapy [...] Lisbet Pizano APRN-SONIDO documented in this encounter [facility] 10-23-2023 Telephone encounter Note Patient calls and [...] 1 pm with Rosa. Karyn Truong RN [facility] 10-23-2023 Miscellaneous Notes Patient calls and states [...] Karyn Truong RN documented in this encounter [facility] 10-18-2023 History of Present illness Narrative This note was created using [employer]. Subjective Pat Sorto is a 63 year [...] - CYCLOBENZAPRINE 10 MG TABLET Severino Sauer APRN.SECURITY GUARD DISPATCHER documented in this encounter [facility] 10-08-2023 History of Present illness Narrative Primary Care Pharmacy Visit CC (Reason for Consult): (E11.9) Type 2 diabetes mellitus without complication, unspecified whether long term care administrator insulin use (HCC) (primary encounter diagnosis) Goal(s): [...] up to 30 days. 90 tablet 0 TeravacUCH ULTRA PLUS TEST strp 1 Each two [...] day. Insulin Dep? No 200 Each 3 uxbfizpavjLUHAN-eauyws-tepcyfdzc (BMX 1:1:1) 1:1:1 liqd Take by mouth every 4 hours as needed (mucositis). Magic mouthwash PRN aspirin, enteric coated (ASPIRIN, ENTERIC COATED) 81 mg EC tablet Take 81 mg by mouth once daily. IADTAAW-BWORKCLUD-DHKM ORAL Take 1 tablet by mouth once [...] 2 diabetes mellitus without complication, unspecified whether senior living insulin use (HCC) - ICD9: 250.00, ICD10: [...] Tatianna Crook, PharmD, BCACP Primary Care Clinical Supervisor [employer] documented in this encounter [facility] 09-11-2023 Telephone encounter Note Pathology results requested from Dr. Del Cid's office. Svetlana Kong LPN [facility] 09-11-2023 Miscellaneous Notes Pathology results requested from Dr. Del Cid's office. Svetlana Kong LPN documented in this encounter [facility] 09-05-2023 History of Present illness Narrative Primary Care Pharmacy Visit CC (Reason for Consult): (E11.9) Type 2 diabetes mellitus without complication, unspecified whether long term care administrator insulin use (HCC) (primary encounter diagnosis) Goal(s): [...] day. Insulin Dep? No 200 Each 3 ztepzctubdHLMUV-inqkwb-ulabbkoqv (BMX 1:1:1) 1:1:1 liqd Take by mouth every 4 hours as needed (mucositis). Magic mouthwash PRN aspirin, enteric coated (ASPIRIN, ENTERIC COATED) 81 mg EC tablet Take 81 mg by mouth once daily. JLJJOXH-RFMDARTCH-XYTD ORAL Take 1 tablet by mouth once [...] 2 diabetes mellitus without complication, unspecified whether long term care administrator insulin use (HCC) - ICD9: 250.00, ICD10: [...] 10/08/23 Tatianna Crook PharmD Primary Care Clinical Supervisor [employer] I spent a total of 30 minutes on the date of the service which included preparing to see the patient, qymc-pc-ogot patient care, completing clinical documentation, counseling and educating the patient/family/caregiver, and ordering medications, tests, or procedures. documented in this encounter [facility] 08-28-2023 Telephone encounter Note Referral faxed and confirmation scanned into [employer]. Karyn Muñoz [facility] 08-28-2023 Miscellaneous Notes Referral faxed and confirmation scanned into [employer]. Karyn Muñoz DX: evaluation in a patient undergoing therapy with cardiotoxic agents Please make sure echo reports, last OV note and a copy of this phone note are sent with referral. Thank you. Svetlana Kong LPN Spoke with patient to schedule. First available cardiology appointment with [facility] isn't until April 2024. Patient requested appointment with [facility]. Please advise on specific diagnosis for the referral so it can be included in the fax to [facility]. Karyn Muñoz Patient is aware of all information. PSS- please contact patient to assist in scheduling with cardiology; she is willing to see someone here or [facility]. Svetlana Kong LPN Her echocardiogram essentially [...] Serena Carrasco DO documented in this encounter [facility] 08-28-2023 Telephone encounter Note DX: evaluation in a patient undergoing therapy with cardiotoxic agents Please make sure echo reports, last OV note and a copy of this phone note are sent with referral. Thank you. Svetlana Kong LPN [facility] 08-28-2023 Telephone encounter Note Spoke with patient to schedule. First available cardiology appointment with [facility] isn't until April 2024. Patient requested appointment with [facility]. Please advise on specific diagnosis for the referral so it can be included in the fax to [facility]. Karyn Muñoz [facility] 08-28-2023 Telephone encounter Note Patient is aware of all information. PSS- please contact patient to assist in scheduling with cardiology; she is willing to see someone here or [facility]. Svetlana Kong LPN [facility] 08-27-2023 Telephone encounter Note Her echocardiogram essentially [...] and cardiac issues appropriately. Serena Carrasco DO [facility] 08-26-2023 Telephone encounter Note Pt. Notified of results, voiced understanding. Kasie Lamb LPN [facility] 08-26-2023 Miscellaneous Notes Pt. Notified of results, voiced understanding. Kasie Lamb LPN Good news. Can let her know the PET scan shows continued response to the cancer. documented in this encounter [facility] 08-25-2023 Telephone encounter Note Good news. Can let her know the PET scan shows continued response to the cancer. [facility] 08-19-2023 History of Present illness Narrative RADIOLOGY [...] PATIENT PRESENTS WITH AN IMPLANTABLE OR ATTACHED BAND INSTRUMENT MAKER: No CREATININE: Creatinine Date Value Ref Range [...] AM PAGER/CONTACT #: documented in this encounter [facility] 08-14-2023 Telephone encounter Note Patient returned call and scheduled. Rea Liang [facility] 08-14-2023 Miscellaneous Notes Patient returned call and [...] in 3 months. documented in this encounter [facility] 08-13-2023 History of Present illness Narrative Primary Care Pharmacy Visit CC (Reason for Consult): (E11.9) Type 2 diabetes mellitus without complication, unspecified whether senior living insulin use (HCC) (primary encounter diagnosis) Goal(s): [...] day. Insulin Dep? No 200 Each 3 jfvrbjfwqlWEOLA-taoneo-glrvkwzrc (BMX 1:1:1) 1:1:1 liqd Take by mouth every 4 hours as needed (mucositis). Magic mouthwash PRN aspirin, enteric coated (ASPIRIN, ENTERIC COATED) 81 mg EC tablet Take 81 mg by mouth once daily. PEXGWZX-LVRTSPIAD-WHMA ORAL Take 1 tablet by mouth once [...] 2 diabetes mellitus without complication, unspecified whether senior living insulin use (HCC) - ICD9: 250.00, ICD10: E11.9 - Uncontrolled - Start semaglutide (Ozempic) 0.25 mg once weekly x4 weeks, then increase to 0.5 mg once weekly. Reviewed appropriate medication administration; will send Our[employer] video link via [employer] - Continue glipizide XL 5 mg once [...] 09/05/23 Tatianna Crook PharmD Primary Care Clinical Supervisor [employer] documented in this encounter [facility] 08-12-2023 Telephone encounter Note Fasting Lipid with QMO CBC/CMP scheduled on 8.5 as directed. Left message for patient to return call. When patient calls, please advise below and schedule QMO CBC/CMP and follow up w/ Dr. Carrasco/Kassy in 3 months. Karyn Muñoz [facility] 08-12-2023 Telephone encounter Note For now, can schedule for monthly CBC/CMP and follow up OV with or Kassy in about 3 months. May have to change of course depending on PET results. Serena Carrasco DO [facility] 08-12-2023 Telephone encounter Note Patient aware of all information. PSS- please schedule patient for a fasting lipid panel 11/11/2023 @ 8:30. Patient is aware of appointment date and time. Dr. Carrasco- patient has a PET scan today and an echo 08/20/2023. She is asking when a follow up visit should be scheduled? Svetlana Kong LPN [facility] 08-12-2023 Telephone encounter Note ----- Message from Serena Carrasco DO sent at 08/10/2023 9:59 AM EDT ----- Cholesterol and triglycerides increased. Recommend cutting back on sweets and fatty foods. Also, check in with Dr. Rivas if cholesterol medication indicated. Plan to repeat fasting lipid panel in 3 months. [facility] 08-05-2023 Telephone encounter Note She has questions about whether Ozempic is appropriate for her. Recently switched from metformin to glipizide. Routing to pharmacist and PCP for review. [facility] Work Phone: 08-05-2023 Miscellaneous Notes She has questions about whether Ozempic is appropriate for her. Recently switched from metformin to glipizide. Routing to pharmacist and PCP for review. documented in this encounter [facility] 08-05-2023 History of Present illness Narrative Diagnosis: 1) Breast cancer. HPI: The patient is a 63-year-old female who has a past medical history significant for hypertension and primary biliary cirrhosis. 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 Most recent liver chemistries performed at [facility] on 01/10/2017 showed a total bilirubin of [...] Evidently she was on a trip to [place] about 2 1/2 years ago when she [...] greatest length). ER (clone 6F11) >95%, strong GA (clone 16/1E2) >95%, strong Her-2Neu (clone CB11) [...] Previously performed (HER2) ERBB2 Status: Previously performed Lace Weaver Tumor Block: Specify: B3 Residual tumor burden: Tumor bed dimension #1: 8 mm Tumor bed dimension #2: 5 mm Overall tumor cellularity 50% Percentage in situ 3% Comment: Please see [id number] for the results of estrogen and progesterone receptors and HER2 studies. 3) [facility] Stopped 08/20[facility]. Metastatic disease. Had [...] was performed on block A1 at the [facility] and compared to appropriate reactive controls. The [...] everolimus second week April 2023. Was at [facility]. Had PET scan on 05/02. Demonstrated stable [...] internal mammary merlyn involvement) MX stage IIIC ER/GA positive, HER2 non overexpressed invasive ductal carcinoma of the right breast. -KPS is 100%. -PET scan indicated disease left chest wall and mediastinal lymph nodes. MRI brain negative. -Biopsy-proven disease recurrence left chest wall inferior and posterior to implant. -ER positive (99% strong staining intensity), GA positive (2% with strong staining intensity), HER2 2+; nonamplified by FISH testing. 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 -MRI Breast 03/28/2023 demonstrated PD and therapy was rotated to Faslodex and Afinitor. At [facility] they recommended exemestane with Afinitor. Changes were made. -PET scan results from [facility] on 05/02/2023. Resolution of FDG avid mediastinal [...] Serena Carrasco DO documented in this encounter [facility] 07-24-2023 Miscellaneous Notes Was only for 30 days and PCP discontinued on 07/16/2023. Svetlana Kong LPN documented in this encounter [facility] 07-19-2023 Miscellaneous Notes The following approved medication [...] Jacinta Rivas MD documented in this encounter [facility] 07-18-2023 History of Present illness Narrative Primary Care Pharmacy Visit CC (Reason for Consult): (E11.9) Type 2 diabetes mellitus without complication, unspecified whether long term care administrator insulin use (HCC) (primary encounter diagnosis) Goal(s): [...] chemo medications prior. Follows with oncologist at [facility]. States not sure what duration of therapy [...] up to 30 days. 90 tablet 0 TJYXEKN-BLRGAPGCT-JTZP ORAL Take 1 tablet by mouth once [...] 2 diabetes mellitus without complication, unspecified whether senior living insulin use (HCC) - ICD9: 250.00, ICD10: [...] 08/22/23 Tatianna Crook, Last Primary Care Clinical Supervisor [employer] I spent a total of 60 minutes on the date of the service which included preparing to see the patient, kttt-dx-phln patient care, completing clinical documentation, counseling and educating the patient/family/caregiver, and ordering medications, tests, or procedures. documented in this encounter [facility] 07-18-2023 Instructions Tatianna Crook RPh - 07/18/2023 1:30 PM EDT Switch glyburide to glipizide - take glipizide XL 5 mg once daily documented in this encounter [facility] 07-16-2023 Instructions Jacinta Rivas MD - 07/16/2023 11:59 AM EDT May increase glyburide to taking 2 pills per day. documented in this encounter [facility] 07-16-2023 History of Present illness Narrative This note was created using Akellar[employer]. Subjective Pat Sorto is a 63 year [...] (HCC) followed by Dr. Husam Hart in [place] Current Outpatient Medications Medication Sig glyBURIDE 2.5 [...] as needed for up to 30 days. PJIAGRY-AUBZVQZRU-OSJR ORAL Take 1 tablet by mouth once [...] Jacinta Rivas MD documented in this encounter [facility] 07-15-2023 History of Present illness Narrative Images [...] normal golf swing without restriction or pain/tightness. [place] in home exercise program. 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 Skilled judgment was used in selection of appropriate interventions. Provided written instruction for home exercise program to facilitate proper performance and compliance. Correct performance of therapeutic exercises was facilitated with verbal and visual cuing. Patient education as noted. Self-Fdc Management: 1: Educated pt in lymphedema and [...] Bobbi Vanegas PT documented in this encounter [facility] 07-10-2023 Miscellaneous Notes See PCP Shreyat response, [...] team -Saturday. Any other options? Thanks Pat [phone] Please call patient with PCP response. Thank [...] insurance coverage. Called by Dr. Nelson at [facility] ER for patient presenting with symptoms [...] testing, and management. documented in this encounter [facility] 07-10-2023 Miscellaneous Notes Addended by: JACINTA RIVAS on: 07/10/2023 04:44 PM Modules accepted: Orders Please see 07/08/23 phone encounter. Will close this encounter. Susana Mix RN documented in this encounter [facility] 07-08-2023 History of Present illness Narrative This [...] (HCC) followed by Dr. Husam Hart in [place] PAST SURGICAL HISTORY Procedure Laterality Date ARTHRP ACETBLR/PROX FEM PROSTC AGRFT/ALGRFT Right 03/20/2019 Hip replacement, total ARTHRP KNE CONDYLE&PLATU MEDIAL&LAT COMPARTMENTS Left 02/2016 BIOPSY BREAST OPEN INCISIONAL Left 2007 [facility] benign pathology per patient BREAST RECONSTRUCTION Left [...] as needed for up to 30 days. YIIOAJS-DJAFTLVJX-JLSL ORAL Take 1 tablet by mouth once [...] Declines EMS Referred to ED TEACHING PROVIDER (Physician/PA/USER EXPERIENCE DESIGNER) NOTE OF PERSONAL INVOLVEMENT IN CARE: I have personally seen and examined the patient and performed the medical decision-making components. I have reviewed the Advanced Practice Registered Nurse (USER EXPERIENCE DESIGNER) Student's documentation and verified the findings in the note as written. Any additions or changes are noted in bold/italics. Signature: Carla Forbes Date: 07/08/2023 Time: 3:57 PM documented in this encounter [facility] 07-08-2023 Discharge summary Note Date/Time July 08, 2023 6:46pm [facility] Medical Records Department [address] [place] [address] Emergency Department Summary 07/08/23 MR#: [id number] Acct: [id number] Name: PAT SORTO Rep #:[id number] : 1960 63 From: Jaquan Nelson DO [...] or flank pain. No diarrhea or constipation. [facility] Medical History Abnormal mammogram of left breast [...] 77.5 H Lymph % (Auto) 12.7 L Williams % (Auto) 8.5 Eos % (Auto) 0.6 [...] Clarity Cloudy Urine pH 6.0 Ur Specific [place] 1.015 Urine Protein 100 H Urine Glucose [...] your Primary Care Provider. Call [facility] ([phone]) or report to the closest Emergency Room. Call 911 if necessary. 07/08/232032 <Electronically signed by Jaquan Nelson DO> Cosigner Signature (if applicable): CC: Dr. Jacinta Riavs MD ~ Signed [facility] Work Phone: 1(734) 756-351404-01-2024 Miscellaneous Notes* Telephone Encounter - Kasie Lamb [...] sugars. Serena Carrasco DO documented in this encounterPrem[facility] History of Present illness Narrative* Michell David - 07/05/2023 8:57 AM EDT Pat Sorto 1960 07/05/2023 Diagnosis: 1) Breast cancer. HPI: The patient is a 63-year-old female who has a past medical history significant for hypertension and primary biliary cirrhosis. 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 Most recent liver chemistries performed at [facility] on 01/10/2017 showed a total bilirubin of [...] Evidently she was on a trip to [place] about 2 1/2 years ago when she [...] greatest length). ER (clone 6F11) >95%, strong GA (clone 16/1E2) >95%, strong Her-2Neu (clone CB11) [...] hemangioma. Brain MRI was normal. Was at [facility]. Had PET scan on 05/02. Demonstrated stable [...] Previously performed (HER2) ERBB2 Status: Previously performed Lace Weaver Tumor Block: Specify: B3 Residual tumor burden: Tumor bed dimension #1: 8 mm Tumor bed dimension #2: 5 mm Overall tumor cellularity 50% Percentage in situ 3% Comment: Please see [id number] for the results of estrogen and progesterone receptors and HER2 studies. 3) [facility] Stopped 08/2022. Metastatic disease. Had [...] was performed on block A1 at the [facility] and compared to appropriate reactive controls. The [...] NS. Recent return from golf trip to [facility]. Notes sensitivity and blistering of sun exposed [...] internal mammary merlyn involvement) MX stage IIIC ER/GA positive, HER2 non overexpressed invasive ductal carcinoma of the right breast. -KPS is 100%. -PET scan indicated disease left chest wall and mediastinal lymph nodes. MRI brain negative. -Biopsy-proven disease recurrence left chest wall inferior and posterior to implant. -ER positive (99% strong staining intensity), GA positive (2% with strong staining intensity), HER22+; nonamplified by FISH testing. 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 -MRI Breast 03/28/2023 demonstrated PD as outlined above. -Therapy was rotated to Faslodex and Afinitor tour. At [facility] they recommended exemestane withAfinitor. Changes were made. -Tolerating exemestane fairly well. Some recurrence of musculoskeletal symptoms but these are not as prominent as they were initially with her AI therapy in the adjuvant setting. -Reviewed PET scan results from [facility] on 05/02/2023. Resolution of FDG avid mediastinal [...] about 4 weeks with labs Michell David APRN.SECURITY GUARD DISPATCHER I spent a total of 30 minutes on the date of the service which included preparing to see the patient, auwc-gj-yyfl patient care, completing clinical documentation, performing a [...] evaluation of this patient. documented in this encounterPremier [facility]03-27-[facility]24 Miscellaneous Notes* Telephone Encounter - Bobbi Zarate - 07/03/2023 8:20 AM EDT Patient informed * Telephone Encounter - Karyn Muñoz - 07/03/2023 8:05 AM EDT Left message for patient to return call. When she calls, please advise that Dr. Carrasco would like tosee her at 8:40 instead of 8:20 on 07/04. Karyn Muñoz documented in this encounterPremier Health [facility]02-27-2024 Miscellaneous Notes* Telephone Encounter - Kasie Lamb [...] go to that place up there in [place] to get the sleeve. Thanks, Rea * Telephone Encounter - Serena Carrasco DO - 06/03/2023 4:32 PM EST I placed an order for physical therapy for lymphedema evaluation. I put it in the AVS but had not placed the order at time of OV. Is there now. Serena Carrasco DO documented in this encounterPremier Health [facility]-16-2024 Miscellaneous Notes* Telephone Encounter - Bobbi Zarate - 05/24/2023 4:20 PM EST Patient is calling requesting that prescription go to [facility] in [place] due to complications at pharm. * Telephone Encounter - Michell David - 05/24/2023 12:23 PM EST done * Telephone Encounter - Svetlana Kong LPN - 05/24/2023 11:53 AM EST Please resend Rx to [facility] pharmacy. [address] is unable to compound meds. Svetlana Kong LPN documented in this encounterPremier Health [facility]02-16-2024 Miscellaneous Notes* Addendum Note - Svetlana Kong [...] out? Svetlana Kong LPN documented in this encounterPremier Health [facility]02-05-2024 Miscellaneous Notes* Addendum Note - Serena Carrasco [...] PM EST Call to [facility] at [facility], , spoke FE Sanders. He provided Dr. Rayo cell number. Given to Dr. Carrasco. Nicki Malhotra RN * Telephone Encounter - Lisa Malhotra RN - 05/07/2023 1:55 PM EST Attempted to call Carla Spears at number provided below. Rings normal and then rings busy. Nicki Malhotra RN Spoke with patient, she will send chart message through [facility]'s [employer] messaging to ask for an alternative number [...] a while I get a message from [employer] saying the call cannot be completed as dialed please try again later. Perhaps we can get an alternate number? Serena Carrasco DO * Telephone Encounter - Lisa Malhotra RN - 05/03/2023 8:55 AM EST [place] Care Coordination FOLLOW-UP NOTE Patient identified by name and date of . YES Spoke to patient Summary: (Reason for follow-up) Patient states she is in [place] at [facility]. She is seeing another oncologist, Dr. Knox. [...] physicians. Dr. Knox nurse: Carla Spears RN. [phone] Care Coordination Plan: as above. Lisa Malhotra RN May 03, 2023 documented in this encounterPremier Health [facility]02-01-[facility]24 History of Present illness Narrative* Chantale Bundy [...] bulk with another kit. Shipped today via [employer] [phone] Patient had been unsure if she was willing to submit tissue or blood until today for study. Patientwas agreeable and discussed referral for phase 1 trials. Chantale Bundy RN [phone] documented in this encounterPremier Health [facility]12-08-2023 Miscellaneous Notes* Telephone Encounter - Serenity Stern RN - 03/15/2023 2:33 PM EST See mychart message 02/22/23 documented in this [facility]12-05-2023 Miscellaneous Notes* Telephone Encounter - Bianca Addison RN - 03/12/2023 3:32 PM EST Reached out to Pat to let her know that I have schedule an MRI and Dr Marcelino on 03/28 at [facility]. Pat verbalized understanding. No further questions. documented in this [facility]11-30-2023 Miscellaneous Notes* Telephone Encounter - Dena Lechuga RN - 03/07/2023 3:39 PM EST Called patient, no answer. Left a VM on patient identified VM stating to push fluids, take imodium as needed, call this nurse with any worsening/new symptoms, follow-up as scheduled. Dena Lechuga RN * Telephone Encounter - Dena Lechuga RN - 03/07/2023 9:27 AM EST [facility] Care Coordination FOLLOW-UP NOTE Patient identified by [...] Diarrhea? Serena Carrasco DO documented in this encounterPremier Health [facility]11-28-2023 Nurse Note* Kasie Lamb LPN - 03/05/2023 9:22 AM EST Faslodex injection administered,bilateral buttocks, tolerated well, no immediate adverse reactions noted. Kasie Lamb LPN documented in this encounterPremier Health [facility]11-13-2023 History of Present illness Narrative* Myla Springer - 02/18/2023 12:47 PM EST VIRTUAL VISIT PROGRESS NOTE This is a virtual visit using Numblebee Zoom Video Visit. It required patient- provider interaction for the medical decision making as documented below. I have communicated my name and active licensure. The patient's identity and physical location wereverified at the time of this visit. Either the patient or their legal parts representative has been informed of the risks [...] (HCC) followed by Dr. Husam Hart in [place] PAST SURGICAL HISTORY Procedure Laterality Date ARTHRP ACETBLR/PROX FEM PROSTC AGRFT/ALGRFT Right 03/20/2019 Hip replacement, total ARTHRP KNE CONDYLE&PLATU MEDIAL&LAT COMPARTMENTS Left 02/2016 BIOPSY BREAST OPEN INCISIONAL Left 2007 [facility] benign pathology per patient BREAST RECONSTRUCTION Left [...] patient/family/caregiver Myla Springer DPM documented in this encounterPremier Health [facility]11-07-2023 Miscellaneous Notes* Telephone Encounter - Nuzhat Beauchamp LPN - 02/12/2023 4:06 PM EST Referral information and xray faxed to number provided. * Telephone Encounter - Cathy Burr APRN.LOGISTICS TEAM LEADER - 02/12/2023 3:53 PM EST OK, see below * Telephone Encounter - Janee Ray LPN - 02/12/2023 10:15 AM EST Pt is requesting a referral to [facility] for recurring neck pain. She has an appt with them 02/14/23. Pt also requests her thoracic xray from 02/04/23 be faxed as well. Janee Ray LPN documented in this encounterPremier Health [facility]10-23-2023 History of Present illness Narrative* William Major, [...] radiation safety can be found usingthis link: [email or web address] SIGNATURE: RT Darlin(R) PATIENT NAME: Pat Sorto DATE: January 28, 2023 TIME: 10:10 AM PAGER/CONTACT #: documented in this encounterPremier Health [facility]10-13-2023 Miscellaneous Notes* Telephone Encounter - Kasie Lamb LPN - 01/18/2023 11:05 AM EDT See refill encounter. Kasie Lamb LPN * Telephone Encounter - Bobbi Zarate - 01/18/2023 10:42 AM EDT Patient called requesting refill of Lisinopril 20-12.5 mg. Patient requesting to be sent to [facility] in [place]. Unable to find medication on med list. Pt called PCP. She stated Dr. Carrasco refills. Patient going out of town tomorrow. Requesting to fruit picker today. documented in this encounterPremier Health [facility]10-11-2023 Miscellaneous Notes* Telephone Encounter - Edilia Craven [...] each lab draw. Thank you. Kassy Raman APRN.SECURITY GUARD DISPATCHER documented in this encounterPremier Health Miami [facility]10-03-2023 Miscellaneous Notes* Telephone Encounter - Mino Rosales [...] tab: Yes BESSY Holley-Maggi documented in this encounterPremier Health [facility]09-22-2023 Miscellaneous Notes* Telephone Encounter - Karyn Muñoz [...] with Zometa. My signature documented in this encounterPremier Health Miami Valley Hospital [facility]09-20-2023 History of Present illness Narrative* Brindley, Sulma, RN - 12/26/2022 2:57 PM EDT Jason held per order Dr Carrasco. Labs drawn documented in this encounterPremier Health [facility]09-12-2023 Miscellaneous Notes* Telephone Encounter - Meri Buchanan [...] . Serena Carrasco DO documented in this encounterPremier Health [facility]09-12-2023 Miscellaneous Notes* Telephone Encounter - Rea Banda [...] and 01/10? Thanks Rea documented in this encounterPremier Health Miami Valley Hospital [place] History of Present illness Narrative* Serena Carrasco, - 12/17/2022 4:02 PM EDT Diagnosis: 1) Breast cancer. HPI: The patient is a 62-year-old postmenopausal female who has a past medical history significant for hypertension and primary biliary cirrhosis. 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 Most recent liver chemistries performed at [facility] on 01/10/2017 showed a total bilirubin of [...] Evidently she was on a trip to [place] about 2 1/2 years ago when she [...] greatest length). ER (clone 6F11) >95%, strong GA (clone 16/1E2) >95%, strong Her-2Neu (clone CB11) [...] Previously performed (HER2) ERBB2 Status: Previously performed Lace Weaver Tumor Block: Specify: B3 Residual tumor burden: Tumor bed dimension #1: 8 mm Tumor bed dimension #2: 5 mm Overall tumor cellularity 50% Percentage in situ 3% Comment: Please see [id number] for the results of estrogen and progesterone [...] was performed on block A1 at the [facility] and compared to appropriate reactive controls. The [...] rhonchi. CARDIOVASCULAR: Rhythm is regular. 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 Left sided implant remains contracted. Stable less [...] Abs Lymph 1.00 - 4.00 k/uL 2.03 Williams% % 13.9 Abs Williams <0.87 k/uL 0.70 Eosin% % 1.2 Abs [...] internal mammary merlyn involvement) MX stage IIIC ER/GA positive, HER2 non overexpressed invasive ductal carcinoma of the right breast. -KPS is 100%. -PET scan indicated disease left chest wall and mediastinal lymph nodes. MRI brain negative. -Biopsy-proven disease recurrence left chest wall inferior and posterior to implant. -ER positive (99% strong staining intensity), GA positive (2% with strong staining intensity), HER22+; [...] which included preparing to see the patient, [id number]-ov-[id number] patient care, completing clinical documentation, obtaining and/or reviewing separately obtained history, performing a medically appropriate examination, counseling and educating the pat ient/family/caregiver, ordering medications, tests, or procedures, communicating with other HCPs (not separately reported), and communicating results to the patient/family/caregiver. Serena Carrasco DO documented in this encounterPremier Health [facility]09-07-2023 Nurse Note* Kasie Lamb LPN - 12/13/2022 9:44 AM EDT faslodex injection administered,bilateral buttocks, tolerated well, no immediate adverse reactions noted. Kasie Lamb LPN documented in this encounterPremier Health [facility]08-23-2023 Miscellaneous Notes* Telephone Encounter - Meir Buchanan - 11/28/2022 2:21 PM EDT Spoke [...] and interstitial lung disease/pneumonitis. Monitor adherence. The [employer] [employer] hepatitis B virus [...] minutes Dena Lechuga RN documented in this encounterPremier Health [facility]08-10-2023 History of Present illness Narrative* Анна Peck LPN - 11/15/2022 9:23 AM EDT Pt here for injection of Faslodex. Given IM in bilateral buttocks. Pt tolerated well. Анна Peck LPN documented in this encounterPremier Health Miami [facility]08-03-2023 Miscellaneous Notes* Telephone Encounter - Анна Peck [...] hydration. Serena Carrasco DO documented in this encounterPremier Health [facility]08-02-2023 Miscellaneous Notes* Telephone Encounter - Анна Peck LPN - 11/07/2022 3:33 PM EDT Pt notified that Slow-Mag is OTC and Kisqali will be shipped to her. pt voices understanding. Анна Peck LPN * Telephone Encounter - Bobbi Zarate - 11/07/2022 2:54 PM EDT Relayed message to patient. Scheduled Lab as requested. Patient is asking that Slow Mag be sent to [facility] in [place]. Patient also asking if rx for Kisqali [...] Carrasco DO * Telephone Encounter - Mino Avalso RN - 11/07/2022 12:24 PM EDT Patient is here for hydration and magnesium. Should she come back to get labs done again tomorrow? Patient is not on oral magnesium but states that her diarrhea has resolved. documented in this encounterPremier Health [facility]08-02-2023 Miscellaneous Notes* Telephone Encounter - Karyn Muñoz [...] diarrhea? Serena Carrasco DO documented in this encounterPremier Health [facility]08-01-2023 Miscellaneous Notes* Telephone Encounter - Tye Daniel [facility] - 11/06/2022 2:07 PM EDT Images from the original note were not included. [facility] received prescription(s) for Kisqali from [...] number is . No further action by [facility] Specialty. Tye Daniel, PharmD Clinical Pharmacist, Oncology [facility] P: , F: Pool: P [facility] Pool #: [id number] documented in this encounterPremier Health Miami [facility]08-01-2023 History of Present illness Narrative* Charlene Kincaid RN - 11/06/2022 1:31 PM EDT EKG completed per phone note. documented in this encounterPremier Health Miami [facility]07-27-2023 Miscellaneous Notes* Telephone Encounter - Lisa Malhotra RN - 11/01/2022 4:26 PM EDT Patient aware of message, labs, EKG and new Rx. Questions answered and agreeable with plan. Nicki Malhotra RN * Telephone Encounter - Serena Carrasco DO - 11/01/2022 4:08 PM EDT Going to rotate therapy from Verzenio to [facility]. Rx sent to specialty pharmacy. When she is here on Saturday, add labs filed under this encounter and also obtain baseline EKG. Serena Carrasco DO documented in this encounterPremier Health [facility]07-20-2023 Miscellaneous Notes* Telephone Encounter - Bianca Addison RN - 10/25/2022 12:44 PM EDT Spoke with Pat regarding when she should return to see Dr Bingham. Advised that per Dr Bingham, Willie will reach out to us and let us know when we need to see her back. Pat verbalized understanding. No further questions. documented in this encounterPremier Health Miami [facility]07-13-2023 Nurse Note* Kasie Moraes LPN - 10/18/2022 9:37 AM EDT faslosex injection administered, bilateral buttocks,tolerated well, no immediate adverse reactions noted. Kasie Moraes LPN documented in this encounterPremier Health [facility]06-26-2023 Miscellaneous Notes* Telephone Encounter - Serena Carrasco [...] RN October 01, 2022 documented in this encounterPremier Health Miami Valley Hospital North06-20-2023 Nurse Note* Karyn Kirk RN - 09/25/2022 12:38 PM EDT No hydration. Continue liberal hydration. She can restart Verzenio and Nicki will call her about use of Imodium. She should call us if diarrhea not controlled. Per Dr. Carrasco Pt aware to re-start. documented in this encounterPremier Health [facility]06-19-2023 Miscellaneous Notes* Telephone Encounter - Karyn Muñoz [...] stopped? Serena Carrasco DO documented in this encounterPremier Health [facility]06-15-2023 Miscellaneous Notes* Telephone Encounter - Kasie Moraes [...] Way. Serena Carrasco DO documented in this encounterPremier Health Miami [facility]06-15-2023 History of Present illness Narrative* Chantale Bundy [...] interm. MATTY Bruner, RN Clinical Research Nurse [phone] documented in this encounterPremier Health Miami Valley [facility]06-15-2023 History of Present illness Narrative* Serena Carrasco, DO - 09/20/2022 10:54 AM EDT Diagnosis: 1) Breast cancer. HPI: The patient is a 62-year-old postmenopausal female who has a past medical history significant for hypertension and primary biliary cirrhosis. 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 Most recent liver chemistries performed at [facility] on 01/10/2017 showed a total bilirubin of [...] Evidently she was on a trip to [place] about 2 1/2 years ago when she [...] greatest length). ER (clone 6F11) >95%, strong GA (clone 16/1E2) >95%, strong Her-2Neu (clone CB11) [...] Previously performed (HER2) ERBB2 Status: Previously performed Lace Weaver Tumor Block: Specify: B3 Residual tumor burden: Tumor bed dimension #1: 8 mm Tumor bed dimension #2: 5 mm Overall tumor cellularity 50% Percentage in situ 3% Comment: Please see [id number] for the results of estrogen and progesterone receptors and HER2 studies. 3[facility] Stopped [facility]. Metastatic disease. Had [...] was performed on block A1 at the [facility] and compared to appropriate reactive controls. The [...] Lymph 1.00 - 4.00 k/uL 1.89 2.28 Williams% % 4.7 5.8 Abs Williams <0.87 k/uL 0.27 0.39 Eosin% % 3.3 [...] internal mammary merlyn involvement) MX stage IIIC ER/GA positive, HER2 non overexpressed invasive ductal carcinoma [...] implant. -ER positive (99% strong staining intensity), GA positive (2% with strong staining intensity), HER22+; [...] which included preparing to see the patient, kvnz-me-alre patient care, completing clinical documentation, obtaining and/or reviewing separately obtained history, performing a medically appropriate examination, counseling and educating the pat ient/family/caregiver, ordering medications, tests, or procedures, communicating with other HCPs (not separately reported), and communicating results to the patient/family/caregiver. Serena Carrasco DO documented in this encounterPremier Health [facility]06-05-2023 Miscellaneous Notes* Telephone Encounter - Svetlana Kong LPN - 09/10/2022 8:24 AM EDT Patient notified and verbalized understanding. Svetlana Kong LPN * Telephone Encounter - Serena Carrasco DO - 09/09/2022 10:27 AM EDT Let her know that her serum creatinine and BUN are slightly elevated suggesting mild dehydration. Encourage liberal hydration. We will be rechecking her lab work as scheduled. Serena Carrasco DO documented in this encounterPremier Health Miami [facility]06-01-2023 Nurse Note* Kasie Moraes LPN - 09/06/2022 9:08 AM EDT Faslodex injection administered, bilateral tolerated well, no immediate adverse reactions noted. Kasie Moraes LPN documented in this encounterPremier Health [facility]05-13-2023 Miscellaneous Notes* Telephone Encounter - Eliz Bingham MD - 08/18/2022 1:16 PM EDT spoke with patient- reviewed situation reviewed MRI questions answered will follow in the background. Eliz Bingham MD 1:16 PM documented in this encounterPremier Health [facility]05-12-2023 Miscellaneous Notes* Telephone Encounter - Rea Banda [...] we will work her inafter her OV. Svetlana Kong LPN * Telephone Encounter - Karyn [...] Please advise. Karyn Muñoz documented in this encounterPremier Health [facility]05-12-2023 Miscellaneous Notes* Telephone Encounter - Serena Carrasco DO - 08/17/2022 8:40 AM EDT The following approved medication requests have been transmitted electronically. Requested Prescriptions Signed Prescriptions Disp Refills abemaciclib (VERZENIO) 150 mg tablet 60 tablet 5 Sig: Take 1 tablet (150 mg) by mouth twice daily. Authorizing Provider: SERENA CARRASCO DO * Telephone Encounter - Tye Daniel [facility] - 08/17/2022 6:07 AM EDT Prior authorization was NOT required for Verzenio. Plan Name: [facility] [place] reference number: N/A Approval Dates: N/A However, s/he is required to use [facility] to fill this medication. Will queue prescription(s) to go to designated specialty pharmacy. For reference, their pharmacy phone number is [phone]. No further action by [facility] Specialty. Tye Daniel, PharmD Clinical Pharmacist, Oncology [facility] P: , F: Pool: P [facility] Pool #: [id number] documented in this encounterPremier Health [facility]05-11-2023 History of Present illness Narrative* Daily Singleton - 08/16/2022 5:39 PM EDT [facility] received prescription(s) for Verzenio from Dr. Carrasco's office. Benefits investigation was conducted, indicating that a prior authorization is not required at this time per patient's plan with [facility]. Prescriptions will now be processed through [facility] for determination of next steps. Daily Singleton documented in this encounterPremier Health [facility]05-11-2023 Nurse Note* Kasie Moraes LPN - 08/16/2022 4:29 PM EDT Injection not given . Pt. Will be out of town the week thru therefore decided not to administer since she would not be available until 09/04 and loading regiman would be interrupted. Per Dr. Corwin Moraes LPN documented in this encounterPremier Health [facility]05-09-2023 NoteHNO ID: [id number] Author: Nini Mansfield RN Service: ? Author Type: Registered Nurse Type: Nursing Progress Note Filed: 08/14/2022 11:08 AM Note Text: 1105 pt given written and verbal dc instructions. Pt verbalized understanding.[facility] [id number] NoteHNO ID: [id number] Author: Kam Dangelo MD Service: ? Author [...] Kam Dangelo MD 10:11 AM August 14, 2022Bellevue [id number] NoteHNO ID: [id number] Author: Gumaro Bey APRN.MUSIC EDUCATION ADJUNCT PROFESSOR Service: Anesthesiology Author Type: Nurse Plastic Die Maker Apprentice Type: Anesthesia Procedure Notes Filed: 08/14/2022 9:21 AM Note Text: ANESTHESIOLOGY PROCEDURE NOTE Airway General Information Procedure Start Time/Medication Administration: 08/14/2022 9:09 AM Patient location during procedure: OR Timeout Performed Pre-procedure: timeout performed Consent Obtained: Yes Patient identity confirmed: arm band, care steam box operator and patient Staffing MUSIC EDUCATION ADJUNCT PROFESSOR: Gumaro Bey APRN.MUSIC EDUCATION ADJUNCT PROFESSOR Performed by: PAMELA Indications and Patient Condition Indications for airway management: anesthesia Preoxygenated: yes anesthesia circuit Patient position: sniffing Method: asleep Difficult Mask: No Final Airway Details Final airway type: supraglottic airway Number of attempts at approach: 1 Final Supraglottic Airway: IGEL Size 5 Seal Adequate: yes Airway not difficult Comments Teeth and lips in preanesthetic condition. SIGNATURE: Gumaro Bey APRN.MUSIC EDUCATION ADJUNCT PROFESSOR PATIENT NAME: Pat Sorto DATE: August 14, 2022 TIME: 9:20 AM CSN: [id number] [facility] Patient Name: Pat Sorto Procedure Date: [...] Procedure Start: 9:12:46 AM Procedure End: 9:30:06 [facility]05-09-2023 History of Present illness Narrative* Kam [...] Kam Dangelo MD 10:11 AM August 14, 2022 documented in this encounterPremier Health [facility]05-08-2023 Miscellaneous Notes* Telephone Encounter - Cori Cox RN - 08/13/2022 2:39 PM EDT Call to patient to discuss upcoming bronchoscopy as scheduled at [facility] on 08/14/[address] Dangelo. Patient verified that they received instructions via PAT visit. Arrival time provided by [facility] per patient. Instructed patient they must have a responsible person to bring them home as they will receive general anesthesia. Provided a review of [facility] Bronchoscopy procedure NPO instructions: - No solid food after midnight. - You may have 12 ounces of clear liquids (water, clear juices such as apple juice or gatorade, carbonated beverages, clear tea, black coffee, jello) until 2 hours before scheduled arrival at facility. Current medications reviewed with patient. Anticoagulants: None Cori DIETRICH, RN, CCRN-K Interventional Pulmonary Outpatient Clinical Coordinator Respiratory [place] documented in this encounterPremier Health [facility]05-08-2023 History and physical note * Kam Dangelo MD - 08/13/2022 10:51 AM EDT Images from the original note were not included. Interventional Pulmonary Consultation Date of Service: August 13, 2022 Patient: Pat Sorto Medical Record: [id number] Primary Care Physician: Jacinta Rivas MD Referring [...] (HCC) followed by Dr. Husam Hart in [place] Past Surgical History PAST SURGICAL HISTORY Procedure Laterality Date ARTHRP ACETBLR/PROX FEM PROSTC AGRFT/ALGRFT Right 03/20/2019 Hip replacement, total ARTHRP KNE CONDYLE&PLATU MEDIAL&LAT COMPARTMENTS Left 02/2016 BIOPSY BREAST OPEN INCISIONAL Left 2007 [facility] benign pathology per patient BREAST RECONSTRUCTION Left [...] 2022 Time: 10:51 AM documented in this encounterPremier Health [facility]05-04-2023 Instructions* Patient Instructions* Jonathan Ku PA-C - 08/09/2022 2:22 PM EDT PATIENT PREOPERATIVE INSTRUCTIONS Kam Dangelo MD has scheduled you for your procedure at this [facility] center: [facility]: [phone] --[id number] [address]. Please check in on the1st floor at [...] Procedures: - YOU MUST HAVE A RESPONSIBLE TYRE FINISHER AND EXAMINER TAKE YOU HOME. A BICYCLE REPAIR TECHNICIAN OR SECURITY VEHICLE PATROL OFFICER CANNOT BE MADE A RESPONSIBLE TYRE FINISHER AND EXAMINER. - We recommend that a responsible person [...] Advance Directive, please fax a copy to [phone] or email to for it to be [...] day. Jonathan Ku PA-C documented in this encounterPremier Health [facility]05-04-2023 History and physical note * Jonathan Ku [...] manage symptoms. Procedure scheduled on 08/14/2022 at [facility]. REVIEW OF SYSTEMS: General: No weight loss, [...] > 1 time per night or hematuria. STUDIO HAND: Negative for abnormal vaginal bleeding, abnormal vaginal [...] (HCC) followed by Dr. Husam Hart in [place] PAST SURGICAL HISTORY Procedure Laterality Date ARTHRP ACETBLR/PROX FEM PROSTC AGRFT/ALGRFT Right 03/20/2019 Hip replacement, total ARTHRP KNE CONDYLE&PLATU MEDIAL&LAT COMPARTMENTS Left 02/2016 BIOPSY BREAST OPEN INCISIONAL Left 2007 [facility] benign pathology per patient BREAST RECONSTRUCTION Left [...] or any previous visit (from the past [id number] hour(s)). Assessment Patient has the following medical [...] large neck Non-male patient STOP-Bang Score: 3 [id number] Score: Age: <65 Sex: female CHF history: No Hypertension history: Yes Stroke/TIA/thromboembolism history: No Vascular disease history: No Diabetes history: No [id number] Score: 2 ASA Class: 2 ANESTHESIA FINDINGS: [...] 10:03 AM PAGER/CONTACT #: documented in this encounterPremier Health [facility]05-01-2023 NoteHNO ID: [id number] Author: Kam Dangelo MD Service: ? Author [...] TAYLA Dangelo MD August 06, 2022 11:23 [facility]05-01-2023 History of Present illness Narrative* Kam [...] 06, 2022 11:23 AM documented in this encounterPremier Health Miami [facility]04-27-2023 History of Present illness Narrative* RT Jessica(R) [...] SIGNATURE: Luann Clarke RDMS, RVT - Jose ([facility]) PATIENT NAME: Pat Sorto DATE: August 02, 2022 TIME: 3:14 PM documented in this encounterPremier Health [facility]04-26-2023 History of Present illness Narrative* Serena Carrasco, - 08/01/2022 2:55 PM EDT Diagnosis: 1) Breast cancer. HPI: The patient is a 61-year-old postmenopausal female who has a past medical history significant for hypertension and primary biliary cirrhosis. 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 Most recent liver chemistries performed at [facility] on 01/10/2017 showed a total bilirubin of [...] Evidently she was on a trip to [place] about 2 1/2 years ago when she [...] greatest length). ER (clone 6F11) >95%, strong GA (clone 16/1E2) >95%, strong Her-2Neu (clone CB11) [...] Previously performed (HER2) ERBB2 Status: Previously performed Lace Weaver Tumor Block: Specify: B3 Residual tumor burden: Tumor bed dimension #1: 8 mm Tumor bed dimension #2: 5 mm Overall tumor cellularity 50% Percentage in situ 3% Comment: Please see [id number] for the results of estrogen and progesterone receptors and HER2 studies. 2) Radiation to left chest wall/axilla and supraclavicular area completed 01/02/2018. 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 Current therapy: 1) Anastrozole on [facility] clinical trial. Presents for ongoing oncologic management. Interim history: Rotated to [facility] at the time of last visit [...] was performed on block A1 at the [facility] and compared to appropriate reactive controls. The [...] edema. SKIN: No jaundice or rash. 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 No focal motor [...] internal mammary merlyn involvement) MX stage IIIC ER/GA positive, HER2 non overexpressed invasive ductal carcinoma [...] which included preparing to see the patient, [id number]-kb-qmjz patient care, completing clinical documentation, obtaining and/or reviewing separately obtained history, performing a medically appropriate examination, counseling and educating the pat ient/family/caregiver, ordering medications, tests, or procedures, communicating with other HCPs (not separately reported), independently interpreting results (not separately reported), and communicating results to the patient/family/caregiver. Serena Carrasco DO documented in this encounterPremier Health Miami [facility]04-26-2023 Nurse Note* Bianca Addison RN - 08/01/2022 [...] work: No Is the patient active on [employer] Yes Electronically Signed By: Bianca Addison RN [...] (HCC) followed by Dr. Husam Hart in [place] PAST SURGICAL HISTORY Procedure Laterality Date ARTHRP ACETBLR/PROX FEM PROSTC AGRFT/ALGRFT Right 03/20/2019 Hip replacement, total ARTHRP KNE CONDYLE&PLATU MEDIAL&LAT COMPARTMENTS Left 02/2016 BIOPSY BREAST OPEN INCISIONAL Left 2007 [facility] benign pathology per patient BREAST RECONSTRUCTION Left 2019 fat graft/implant exchange DELIVERY ONLY 1996,1993 , low transverse MASTECTOMY HX Left 2017 AND with immediate reconstruction Social History Tobacco Use Smoking status: Never Smokeless tobacco: Never Vaping Use Vaping Use: Never used Substance Use Topics Alcohol use: Yes Comment: occasional Drug use: No documented in this encounterPremier Health Miami [facility]04-26-2023 History of Present illness Narrative* Eliz Bingham MD - 08/01/2022 10:00 AM EDT Images from the original note were not included. regroup to discuss punch biopsy results from 07/19/22: Skin, left breast, punch biopsy: -Consistent with metastatic breast adenocarcinoma, see comment. ER 99 GA 2 Her 2 (FISH) non amplified Dr. [...] recall breast history: Presented in 2018 with ER/GA positive, HER2 negative left LABC (worked up at [place]) [id number] Stage IIIC Neoadjuvant course ([place]): ddACx4, Taxol [...] which included preparing to see the patient, dhab-si-vaen patient care, completing clinical documentation, obtaining and/or reviewing separately obtained history, performing a medically appropriate examination, counseling and educating the pat ient/family/caregiver, ordering medications, tests, or procedures, communicating with other HCPs (not separately reported), independently interpreting results (not separately reported), communicatingresults to the patient/family/caregiver, and care coordination (not separately reported). Eliz Bingham MD documented in this encounterPremier Health [facility]04-13-2023 History of Present illness Narrative* Eliz Bingham [...] scheduled with Rosalinda in January for a RODNEY HISTORY: Presented in 2017 with ER/GA positive, HER2 negative left LABC (worked up at [place]) [id number] Stage IIIC Neoadjuvant course ([place]asci): ddACx4, Taxol [...] regional adenopathy IMPRESSION: 2018: Clinical Stage IIIC ER/GA positive, HER2 negative left breast cancer s/p [...] which included preparing to see the patient, bokq-kb-oqpd patient care, completing clinical documentation, obtaining and/or reviewing separately obtained history, performing a medically appropriate examination, counseling and educating the pat ient/family/caregiver, ordering medications, tests, or procedures, communicating with other HCPs (not separately reported), independently interpreting results (not separately reported), communicatingresults to the patient/family/caregiver, and care coordination (not separately reported). Eliz Bingham MD documented in this encounterPremier Health [facility]04-13-2023 Nurse Note* Bianca Addison RN - 07/19/2022 [...] (HCC) followed by Dr. Husam Hart in [place] PAST SURGICAL HISTORY Procedure Laterality Date ARTHRP ACETBLR/PROX FEM PROSTC AGRFT/ALGRFT Right 03/20/2019 Hip replacement, total ARTHRP KNE CONDYLE&PLATU MEDIAL&LAT COMPARTMENTS Left 02/2016 BIOPSY BREAST OPEN INCISIONAL Left 2007 [facility] benign pathology per patient BREAST RECONSTRUCTION Left 2018 fat graft/implant exchange DELIVERY ONLY 1996,1993 , low transverse MASTECTOMY HX Left 2017 AND with immediate reconstruction Social History Tobacco Use Smoking status: Never Smokeless tobacco: Never Vaping Use Vaping Use: Never used Substance Use Topics Alcohol use: Yes Comment: occasional Drug use: No documented in this encounterPremier Health [facility]03-29-2023 Miscellaneous Notes* Telephone Encounter - Bianca Addison RN - 07/04/2022 3:09 PM EDT Reached out to Pat to offer her appt to see Dr Bingham on 07/19 at 9:45 with imaging prior. At 8:15. Patient accepted with appt. No further questions. documented in this encounterPremier Health Miami [facility]03-29-2023 History of Present illness Narrative* Chantale Bundy [...] interm. MATTY Bruner, RN Clinical Research Nurse [phone] documented in this encounterPremier Health Miami [facility]03-29-2023 History of Present illness Narrative* Serena Carrasco DO - 07/04/2022 10:01 AM EDT Diagnosis: 1) Breast cancer. HPI: The patient is a 61-year-old postmenopausal female who has a past medical history significant for hypertension and primary biliary cirrhosis. 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 Most recent liver chemistries performed at [facility] on 01/10/2017 showed a total bilirubin of [...] Evidently she was on a trip to [place] about 2 1/2 years ago when she [...] greatest length). ER (clone 6F11) >95%, strong GA (clone 16/1E2) >95%, strong Her-2Neu (clone CB11) [...] Previously performed (HER2) ERBB2 Status: Previously performed Lace Weaver Tumor Block: Specify: B3 Residual tumor burden: Tumor bed dimension #1: 8 mm Tumor bed dimension #2: 5 mm Overall tumor cellularity 50% Percentage in situ 3% Comment: Please see [id number] for the results of estrogen and progesterone receptors and HER2 studies. 2) Radiation to left chest wall/axilla and supraclavicular area completed 01/02/2018. 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 Current therapy: 1[facility] Presents for ongoing oncologic management. [...] rhonchi. CARDIOVASCULAR: Rhythm is regular. 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 Left sided implant remains contracted. Stable less than BB sized palpable nodules along the superior margin of the breast implant. There is a new, firm subcutaneous mobilenodule inferior side left breast implant. Right breast--No mass or nodule. ABDOMEN: The abdomen is nondistended. No organomegaly. No tenderness. Extremities: No swelling or edema. SKIN: No jaundice or rash. 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 No focal motor weakness. MUSCULOSKELETAL: No muscle wasting. No joint swelling of the hands. ASSESSMENT/PLAN: (C50.512, Z17.0) Malignant neoplasm of lower-outer quadrant of left breast of female, estrogen receptor positive (HCC) (primary encounter diagnosis) (C77.3) 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) Assessment: -cT3 cN3 (high axillary LNs and possible internal mammary merlyn involvement) MX stage IIIC ER/GA positive, HER2 non overexpressed invasive ductal carcinoma [...] which included preparing to see the patient, scbu-xv-asfz patient care, completing clinical documentation, obtaining and/or reviewing separately obtained history, performing a medically appropriate examination, counseling and educating the pat ient/family/caregiver, ordering medications, tests, or procedures, communicating with other HCPs (not separately reported), and communicating results to the patient/family/caregiver. Serena Carrasco DO documented in this encounterPremier Health [facility]03-27-2023 Miscellaneous Notes* Telephone Encounter - Kamala Morales LPN - 07/02/2022 1:19 PM EDT Last office visit: 02/19/22 Next appointment scheduled: 03/11/23 * Telephone Encounter - [facility] - 07/02/2022 12:11 PM EDT Pat Sorto is calling Jacinta Rivas MD today to request a medication not found on current med list: Trazadone 50 mg taking one daily When provider approves [facility] [place] Call patient with any concerns at phone number below which has been verified. Patient has been identified by name and birthdate. Person calling: self Call patient at: on cell [phone] cell Was an appointment scheduled: No Closing statement: Results or non-symptom based questions: Thank you for calling [facility], your call will be returned within the next business day. [facility] documented in this encounterPremier Health [facility]03-20-2023 Miscellaneous Notes* Telephone Encounter - Kasie Moraes [...] patient. Kasie Moraes LPN documented in this encounterPremier Health Miami [facility]02-24-2023 Miscellaneous Notes* Letter - Mammography Coordinator - 06/01/2022 8:22 AM EST June 04, 2022 PID: [id number] Pat Sorto [address] [place] [address] Dear Ms. Sorto, We are pleased to [...] report will be kept on file at [facility] as part of your permanent medical record and are available for your continuing care. Thank you for allowing us to help in meeting your health care needs. Sincerely, Dr. Ro Interpreting Radiologist [facility], [facility] (Normal over 40) documented in this encounterPremier Health Miami [facility]02-17-2023 Miscellaneous Notes* Telephone Encounter - Kasie Moraes [...] patient. Kasie Moraes LPN documented in this encounterPremier Health [facility] North01-19-2023 Miscellaneous Notes* Telephone Encounter - Анна Peck [...] you. Kassy Raman APRN.SONIDO documented in this encounterPremier Health Miami Valley Hospital North12-19-2022 NoteIMPRESSION: 1. Stable right RED 2. Progressive advanced left hip osteoarthrosis Electric Meter Installer: MARTÍNEZ Transcribe Date/Time: Mar 26 2022 2:12P Dictated by : WENDY MITCHELL MD This examination was interpreted and the report reviewed and electronically signed by: WENDY MITCHELL MD on Mar 26 2022 2:12PM EST MERAZ [id number] History of Present illness Narrative* Subhash Avila [...] (HCC) followed by Dr. Husam Hart in [place] PAST SURGICAL HISTORY Procedure Laterality Date ARTHRP ACETBLR/PROX FEM PROSTC AGRFT/ALGRFT Right 03/20/2019 Hip replacement, total ARTHRP KNE CONDYLE&PLATU MEDIAL&LAT COMPARTMENTS Left 02/2016 BIOPSY BREAST OPEN INCISIONAL Left 2007 [facility] benign pathology per patient BREAST RECONSTRUCTION Left [...] Rx Drug Management: New prescription entered into [facility]. Subhash Avila PA-C documented in this encounterPremier Health Miami [facility]12-19-2022 Miscellaneous Notes* Kasie Alvarado RT(R) - 03/26/2022 [...] 26, 2022 9:25 AM documented in this encounterPremier Health Miami Valley [facility] North12-19-2022 Progress note* Kasie Alvarado RT(R) - 03/26/2022 [...] RT Laura(R) March 26, 2022 9:25 AM [facility]12-13-2022 Miscellaneous Notes* Telephone Encounter - Jacinta Rivas MD - 03/20/2022 10:13 PM EST See MyChart reply documented in this encounterPremier Health Miami [facility] North11-21-2022 Miscellaneous Notes* Telephone Encounter - Svetlana Kong [...] Patient is requesting a return call from [facility] in regards to a few test that was completed and asking if they was sent to Dr Tellez in [place]? She is also asking about the results of the CTA please return call to patient. documented in this encounterPremier Health Miami [facility]11-14-2022 History of Present illness Narrative* Jacinta Rivas MD - 02/19/2022 9:20 AM EST This note was created using Akellariter. Subjective Pat Sorto is a 62 year [...] (HCC) followed by Dr. Husam Hart in [place] Current Outpatient Medications Medication Sig meloxicam (MOBIC) [...] Lymph 1.00 - 4.00 k/uL 2.06 1.84 Williams% % 7.8 6.1 Abs Williams <0.87 k/uL 0.56 0.55 Eosin% % 1.8 [...] be communicated with the ordering provider via [employer] staff message or phone message by Imaging [...] sleep. Jacinta Rivas MD documented in this encounterPremier Health [facility]11-03-2022 Miscellaneous Notes* Telephone Encounter - Henrietta Burk [...] can leave on macrobid documented in this encounterPremier Health Miami Valley [facility] North10-31-2022 History of Present illness Narrative* Victoria Duarte [...] (HCC) followed by Dr. Husam Hart in [place] PAST SURGICAL HISTORY Procedure Laterality Date ARTHRP ACETBLR/PROX FEM PROSTC AGRFT/ALGRFT Right 03/20/2019 Hip replacement, total ARTHRP KNE CONDYLE&PLATU MEDIAL&LAT COMPARTMENTS Left 02/2016 BIOPSY BREAST OPEN INCISIONAL Left 2007 [facility] benign pathology per patient BREAST RECONSTRUCTION Left [...] Patient agreeable to treatment plan. Victoria Duarte APRN.SECURITY GUARD DISPATCHER documented in this encounterPremier Health Miami [facility]07-06-2022 Nurse Note* Bianca Addison RN - 10/11/2021 [...] work: No Is the patient active on [employer] Yes Electronically Signed By: Bianca Addison RN [...] (HCC) followed by Dr. Husam Hart in [place] PAST SURGICAL HISTORY Procedure Laterality Date ARTHRP ACETBLR/PROX FEM PROSTC AGRFT/ALGRFT Right 03/20/2019 Hip replacement, total ARTHRP KNE CONDYLE&PLATU MEDIAL&LAT COMPARTMENTS Left 02/2016 BIOPSY BREAST OPEN INCISIONAL Left 2007 [facility] benign pathology per patient BREAST RECONSTRUCTION Left 2018 fat graft/implant exchange DELIVERY ONLY 1996,1993 , low transverse MASTECTOMY HX Left 2017 AND with immediate reconstruction Social History Tobacco Use Smoking status: Never Smoker Smokeless tobacco: Never Used Vaping Use Vaping Use: Never used Substance Use Topics Alcohol use: Yes Comment: occasional Drug use: No documented in this encounterPremier Health [facility]07-06-2022 History of Present illness Narrative* Eliz Bingham MD - 10/11/2021 12:00 PM EDT LAST SEEN AUGUST 2020 for routine follow up of breast cancer history Presents today for scheduled annual exam She is maintaining the anastrozole- hot flashes have improved; joint stiffness is the worst SE She has increased discomfort around her left implant HISTORY: Presented in 2018 with ER/GA positive, HER2 negative left LABC (worked up at [place]) [id number] Stage IIIC Neoadjuvant course (Masci): ddACx4, Taxol [...] She continues to follow with hepatology (in [place]) for known biliary cirrhosis Left - 2018 [...] No history of dysuria, frequency or incontinence STUDIO HAND: Negative for abnormal vaginal bleeding, abnormal vaginal [...] year old female, with Clinical Stage IIIC ER/GA positive, HER2 negative left breast cancer in [...] breast concerns She plans on traveling to [place] to consult with Dr. Rodriguez regarding her implant contracture. I spent a total of 30 minutes on the date of the service which included preparing to see the patient, odmk-sp-avyp patient care, completing clinical documentation, obtaining and/or reviewing separately obtained history, performing a medically appropriate examination, counseling and educating the pat ient/family/caregiver, ordering medications, tests, or procedures, communicating with other HCPs (not separately reported), independently interpreting results (not separately reported), communicatingresults to the patient/family/caregiver and care coordination (not separately reported). Eliz Bingham MD documented in this encounterPremier Health [facility]06-08-2022 Miscellaneous Notes* Telephone Encounter - Jacinta Rivas [...] Paxlovid Nirmatrelvir/Ritonavir (Paxlovid) Eligibility and Patient Discussion [facility] Formulary Restriction Criteria: Adult outpatients 18 years [...] of transplant or on systemic therapy for tlzvd-yspucs-ndqu disease [] CAR T-cell/other cellular therapy recipients [...] Sharad. Saadia Zepeda LPN documented in this encounterPremier Health Miami [facility] North06-04-2022 Miscellaneous Notes* Telephone Encounter - Jacinta Rivas MD - 09/09/2021 12:27 PM EDT Addressed. See telephone encounter documented in this encounterPremier Health Miami Valley Hospital North06-03-2022 Miscellaneous Notes* Telephone Encounter - Jacinta Rivas MD - 09/08/2021 8:07 PM EDT I pended Paxlovid orders in other encounter so can fill easily if needed. documented in this encounterPremier Health Miami Valley Hospital North06-03-2022 Instructions* Patient Instructions* Jacinta Rivas MD - 09/08/2021 8:04 PM EDT FACT SHEET FOR PATIENTS, PARENTS, AND CAREGIVERS EMERGENCY USE AUTHORIZATION (EUA) OF PAXLOVID FOR CORONAVIRUS DISEASE 2019 (COVID-19) You are being given this Fact Sheet because your healthcare provider believes it is necessary to provide you with PAXLOVID for the treatment of xwqv-ol-cgefoyws coronavirus disease (COVID-19) caused by the SARS-CoV-2 [...] virus. COVID-19 illnesses have ranged from very exya-gi-uwtpwk, including illness resulting in . While information [...] is an investigational medicine used to treat wgxg-pj-odihsbmp COVID-19 in adults and children [12 years [...] of using PAXLOVID to treat people with fnvs-gk-ojiznqvs COVID-19. The FDA has authorized the emergency use of PAXLOVID for the treatment of adho-em-hhtsvxew COVID-19in adults and children [12 years of [...] the medicines you take, including prescription and czht-zmk-gcqdnsp medicines, vitamins, and herbal supplements. Some medicines [...] (remdesivir) is FDA-approved for the treatment of ecjv-du-axpkdldp COVID-19 in certain adults and children. Talk with your doctor to see if Veklury is appropriate for you. Like PAXLOVID, FDA may also allow for the emergency use of other medicines to treat people with COVID-19. Go to https://www.fda.gov/dhzmvaoyp-ghgmuqpbanae-jxgfuhxihkw/qyp-cxrfp-lhptopdiij-and- policy-framework/xdhjsirbd-del-ztchnwxuweqdg for information on the emergency use of [...] if I am or ? There is wax ball knock out worker treating women or mothers with PAXLOVID. For [...] to FDA MedWatch at www.fda.gov/medwatch or call 1-387-TLZ5166 or you can reportside effects to [employer]. at the contact information provided below. Website Fax number Telephone number Specialized Pharm[employer]ss How should I store PAXLOVID? Store PAXLOVID [...] (EUA). The EUA is supported by a Armoring Machine Operator of Health and Human Service (HHS) declaration that circumstances exist to justify the emergency use of drugs and biological productsduring the COVID-19 pandemic. PAXLOVID for the treatment of cmqh-ma-klbwoppf COVID-19 in adults and children [12 years [...] telephone number provided below. Website Telephone number www.AFSGD74hbubQn.com (9-375-Q46-TWKA) You can also go to www.DiscountDoc.[employer] or call for more information. Pfizer Distributed by [employer] [place] [address] [id number] Revised: 23 June 2021 documented in this encounterPremier Health [facility]05-04-2022 History of Present illness Narrative* Serenity Godwin [...] vinegar based or ranch dressing// turkey sandwich, kittitian on wheat mustard// soup// fruit Snack - [...] Dosing Weight: 90.3 kg Estimated kilocalorie needs: 4723-1299 kilocalories determined by 15-18 kcal/kg Estimated protein [...] by: Serenity Godwin RD,LD documented in this encounterPremier Health [facility]04-27-2022 History of Present illness Narrative* Serena Carrasco, DO - 08/02/2021 9:22 AM EDT Diagnosis: 1) Breast cancer. HPI: The patient is a 61-year-old postmenopausal female who has a past medical history significant for hypertension and primary biliary cirrhosis. 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 Most recent liver chemistries performed at [facility] on 01/10/2017 showed a total bilirubin of [...] Evidently she was on a trip to [place] about 2 1/2 years ago when she [...] greatest length). ER (clone 6F11) >95%, strong GA (clone 16/1E2) >95%, strong Her-2Neu (clone CB11) [...] Previously performed (HER2) ERBB2 Status: Previously performed Lace Weaver Tumor Block: Specify: B3 Residual tumor burden: Tumor bed dimension #1: 8 mm Tumor bed dimension #2: 5 mm Overall tumor cellularity 50% Percentage in situ 3% Comment: Please see [id number] for the results of estrogen and progesterone receptors and HER2 studies. 2) Radiation to left chest wall/axilla and supraclavicular area completed 01/02/2018. 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 Current therapy: 1[facility] Presents for ongoing oncologic management. [...] rhonchi. CARDIOVASCULAR: Rhythm is regular. 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 Left sided implant remains contracted. Lessl BB sized palpable nodules along the superior margin of the breast implant. Right breast--No mass or nodule. ABDOMEN: The abdomen is nondistended. No organomegaly. No tenderness. Extremities: No swelling or edema. SKIN: No jaundice or rash. 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 No focal motor weakness. MUSCULOSKELETAL: No muscle wasting. No joint swelling of the hands. 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 Serena Carrasco DO documented in this encounterPremier Health [facility]04-27-2022 History of Present illness Narrative* Chantale Bundy [...] interm. Chantale Bundy, Research Nurse, BSN, RN [phone] documented in this encounterPremier Health Miami [facility]11-08-2021 History of Present illness Narrative* Helen Randall [...] 13, 2021 4:17 PM documented in this encounterPremier Health Miami [facility] North09-28-2021 History of Present illness Narrative* Helen Fay RT(R) - 01/03/2021 3:50 PM EDT [...] 03, 2021 3:41 PM [facility] in [facility]Way[facility]* Diagnosis Malignant neoplasm of left breast in female, estrogen receptor positive, unspecified site of breast (HCC)- Primary Nontoxic single thyroid nodule Nontoxic uninodular goiter documented in this encounter [facility]* Diagnosis Malignant neoplasm of left breast in female, estrogen receptor positive, unspecified site of breast (HCC)- Primary documented in this encounter [facility]* Diagnosis Examination of participant in clinical trial- Primary documented in this encounter [facility]* Diagnosis Malignant neoplasm of left breast in female, estrogen receptor positive, unspecified site of breast (HCC)- Primary [facility] this encounter [facility]* Diagnosis Primary biliary cirrhosis (HCC)- Primary Biliary cirrhosis documented in this encounter [facility]* Diagnosis COVID-19 virus infection- Primary documented in this encounter [facility]* Diagnosis Malignant neoplasm of lower-outer quadrant of left breast of female, estrogen receptor positive (HCC)- Primary documented in this encounter [facility] noteNo assessment information availableWDunlap Memorial [facility] Work Phone: Evaluation note* Diagnosis Frequent urination- Primary Urinary frequency documented in this encounter [facility]* Diagnosis Routine medical exam- Primary Routine general medical examination at a health care facility Elevated glucose Other abnormal glucose Acute cystitis without hematuria Acute cystitis Encounter for immunization Need for other specified prophylactic vaccination against single bacterial disease documented in this encounter [facility]* Diagnosis It band syndrome, right- Primary Status post total replacement of right hip Primary osteoarthritis of right knee Primary localized osteoarthrosis, lower leg documented in this encounter [facility]* Diagnosis Malignant neoplasm of lower-outer quadrant of left breast of female, estrogen receptor positive (HCC)- Primary documented in this encounter [facility]* Diagnosis Insomnia, unspecified type documented in this encounter [facility]* Diagnosis Malignant neoplasm of left breast in female, estrogen receptor positive, unspecified site of breast (HCC)- Primary [facility] in this encounter [facility]* Diagnosis Malignant neoplasm of lower-outer quadrant of left breast of female, estrogen receptor positive (HCC)- Primary documented in this encounter [facility]Eval[facility]* Diagnosis Malignant neoplasm of left breast in female, estrogen receptor positive, unspecified site of breast (HCC)- Primary [facility] Abnormal ultrasound of breast- Primary Other (abnormal) findings on radiological examination of breast [facility] Diagnosis Malignant neoplasm of lower-outer [...] to skin (HCC) [facility]* Diagnosis Malignant neoplasm of lower-outer quadrant of left breast of female, estrogen receptor positive (HCC)- Primary [facility]* Diagnosis Adenopathy- Primary Enlargement of lymph nodes Adenopathy Enlargement of lymph nodes [facility]* Diagnosis Pre-op evaluation- Primary Preoperative [...] of lymph nodes documented [facility]* Diagnosis Adenopathy- Primary Enlargement of lymph [...] receptor positive (HCC) [facility]* Diagnosis Carcinoma of left breast [...] intrathoracic lymph nodes documented in this encounter [facility]* Diagnosis Urinary frequency- Primary Glucosuria Glycosuria Left lower quadrant abdominal tenderness with rebound tenderness Hyperglycemia Other abnormal glucose [facility]* Diagnosis Newly diagnosed diabetes (HCC)- Primary Type II or unspecified type diabetes mellitus without mention of complication, not stated as uncontrolled documented in this encounter [facility] note* Diagnosis Lymphedema of left arm- Primary Malignant neoplasm of lower-outer quadrant of left breast of female, estrogen receptor positive (HCC) 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) documented in this [facility] Diagnosis Type 2 diabetes mellitus without complication, unspecified whether long term care administrator insulin use (HCC)- Primary documented in this [facility] Diagnosis Malignant neoplasm of lower-outer quadrant of left breast of female, estrogen receptor positive (HCC) Carcinoma of left breast metastatic to skin (HCC) documented [facility] this [facility] Diagnosis Chemotherapy-induced cardiomyopathy (HCC)- Primary Secondary [...] red blood cells documented in this encounter [facility] note* Diagnosis Carcinoma of left breast metastatic to skin (HCC) Malignant neoplasm of left breast in female, estrogen receptor positive, unspecified site of breast (HCC) 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 [facility] Diagnosis Malignant neoplasm of lower-outer quadrant of left breast of female, estrogen receptor positive (HCC) Type 2 diabetes mellitus without complication, unspecified whether long term care administrator insulin use (HCC)- Primary [facility]* Diagnosis Type 2 diabetes mellitus without complication, unspecified whether long term care administrator insulin use (HCC)- Primary [facility] Newly diagnosed Uncontrolled type 2 diabetes mellitus with hyperglycemia (HCC)- Primary Urinary tract infection without hematuria, site unspecified Metastasis from breast cancer (HCC) documented in this [facility] Diagnosis Malignant neoplasm of lower-outer quadrant of left breast of female, estrogen receptor positive (HCC) Carcinoma of left breast metastatic to skin (HCC) 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 documented [facility] this [facility] Diagnosis Type 2 diabetes mellitus without complication, unspecified whether senior living insulin use (HCC)- Primary documented [facility] this [facility] Diagnosis Carcinoma of left breast metastatic to skin (HCC) Malignant neoplasm of left breast in female, estrogen receptor positive, unspecified site of breast (HCC) 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 [facility] Diagnosis Malignant neoplasm of left breast in female, estrogen receptor positive, unspecified site of breast (HCC) 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 [facility] Diagnosis Type 2 diabetes mellitus without complication, unspecified whether senior living insulin use (HCC)- Primary [facility] Diagnosis Neck strain, initial encounter- Primary [facility] Diagnosis Acute cystitis with hematuria- Primary Acute cystitis [facility] Diagnosis Complicated UTI (urinary tract infection)- Primary Urinary tract infection, site not specified documented in this [facility]* Diagnosis Carcinoma of left breast metastatic to skin (HCC) Malignant neoplasm of left breast in female, estrogen receptor positive, unspecified site of breast (HCC) 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 [facility] Diagnosis Carcinoma of left breast metastatic to skin (HCC)- Primary 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 Acute cystitis with hematuria Acute cystitis Primary hypertension Unspecified essential hypertension 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, unspecified documented in this [facility] Diagnosis Carcinoma of left breast metastatic to skin (HCC)- Primary Malignant neoplasm of overlapping sites of left breast in female, estrogen receptor positive (HCC) documented in this encounter [facility]* Diagnosis Right upper quadrant pain- Primary Abdominal pain, right upper quadrant [facility] Diagnosis Right upper quadrant pain Abdominal pain, right upper quadrant documented in this encounter [facility] note* Diagnosis Pre-operative examination- Primary Preoperative examination, [...] 2 diabetes mellitus without complication, unspecified whether long term care administrator insulin use (HCC)- Primary Medication management Encounter for long-term (current) use of other medications [facility] this [facility] Diagnosis Pre-operative examination- Primary Preoperative examination, [...] intrathoracic lymph nodes documented [facility] this [facility] Diagnosis Pre-operative examination- Primary Preoperative examination, [...] intrathoracic lymph nodes [facility]* Diagnosis Pre-operative examination- Primary Preoperative examination, [...] 32.9 in adult documented in this [facility] Diagnosis Pre-operative examination- Primary Preoperative examination, [...] kidney failure, unspecified documented in this encounter [facility] note* Diagnosis Pre-operative examination- Primary Preoperative examination, [...] positive (HCC)- Primary documented in this encounter [facility] note* Diagnosis Pre-operative examination- Primary Preoperative examination, [...] 32.9 in adult documented in this encounter [facility] note* Diagnosis Pre-operative examination- Primary Preoperative examination, [...] 2 diabetes mellitus without complication, unspecified whether senior living insulin use (HCC)- Primary documented in this encounter [facility] note* Diagnosis Pre-operative examination- Primary Preoperative examination, [...] 32.9 in adult documented in this encounter [facility] note* Diagnosis Pre-operative examination- Primary Preoperative examination, [...] of hip region documented in this encounter [facility] note* Diagnosis Pre-operative examination- Primary Preoperative examination, [...] region and thigh documented in this encounter [facility] note* Diagnosis Pre-operative examination- Primary Preoperative examination, [...] intrathoracic lymph nodes documented in this encounter [facility] note* Diagnosis Pre-operative examination- Primary Preoperative examination, [...] mellitus (HCC)- Primary documented in this encounter [facility] note* Diagnosis Pre-operative examination- Primary Preoperative examination, [...] mellitus (HCC)- Primary documented in this encounter [facility] note* Diagnosis Pre-operative examination- Primary Preoperative examination, [...] receptor positive (HCC) documented in this encounter [facility] note* Diagnosis Pre-operative examination- Primary Preoperative examination, [...] 2 diabetes mellitus without complication, unspecified whether long term care administrator insulin use (HCC)- Primary History of breast cancer- Primary Personal history of malignant neoplasm of breast History of breast reconstruction Breast replaced by other means Encounter to discuss breast reconstruction Other specified counseling documented in this encounter [facility] note* Diagnosis Pre-operative examination- Primary Preoperative examination, [...] positive (HCC)- Primary documented in this encounter [facility] note* Diagnosis Pre-operative examination- Primary Preoperative examination, [...] intrathoracic lymph nodes documented in this encounter [facility] note* Diagnosis Pre-operative examination- Primary Preoperative examination, [...] intrathoracic lymph nodes documented in this encounter [facility] note* Diagnosis Pre-operative examination- Primary Preoperative examination, [...] Other specified counseling [facility] Diagnosis Pre-operative examination- Primary Preoperative examination, [...] receptor positive (HCC) documented in this encounter [facility] note* Diagnosis Pre-operative examination- Primary Preoperative examination, [...] insulin (HCC)- Primary [facility] this [facility] Diagnosis Pre-operative examination- Primary Preoperative examination, [...] insulin (HCC)- Primary documented in this encounter [facility] note* Diagnosis Pre-operative examination- Primary Preoperative examination, [...] receptor positive (HCC) documented in this [facility] Diagnosis Pre-operative examination- Primary Preoperative examination, [...] receptor positive (HCC) documented [facility] Diagnosis Pre-operative examination- Primary Preoperative examination, [...] receptor positive (HCC) documented in this encounter [facility] note* Diagnosis Pre-operative examination- Primary Preoperative examination, [...] receptor positive (HCC) documented [facility] Diagnosis Pre-operative examination- Primary Preoperative examination, [...] receptor positive (HCC) documented in this encounter [facility] note* Diagnosis Pre-operative examination- Primary Preoperative examination, [...] receptor positive (HCC) documented in this encounter [facility] Diagnosis Pre-operative examination- Primary Preoperative examination, [...] receptor positive (HCC) documented in this encounter [facility] note* Diagnosis Pre-operative examination- Primary Preoperative examination, [...] receptor positive (HCC) documented in this encounter [facility] note* Diagnosis Pre-operative examination- Primary Preoperative examination, [...] receptor positive (HCC) documented in this encounter [facility] Diagnosis Pre-operative examination- Primary Preoperative examination, [...] receptor positive (HCC) documented in this encounter [facility] Diagnosis Pre-operative examination- Primary Preoperative examination, [...] receptor positive (HCC) documented in this encounter [facility] Diagnosis Pre-operative examination- Primary Preoperative examination, [...] 2 diabetes mellitus without complication, unspecified whether long term care administrator insulin use (HCC)- Primary Malignant neoplasm of lower-outer quadrant of left breast of female, estrogen receptor positive (HCC) documented in this encounter [facility] note* Diagnosis Pre-operative examination- Primary Preoperative examination, [...] receptor positive (HCC) documented in this encounter [facility] note* Diagnosis Pre-operative examination- Primary Preoperative examination, [...] receptor positive (HCC) documented in this encounter [facility] note* Diagnosis Pre-operative examination- Primary Preoperative examination, [...] receptor positive (HCC) documented in this encounter [facility] note* Diagnosis Pre-operative examination- Primary Preoperative examination, [...] receptor positive (HCC) documented in this encounter [facility] note* Diagnosis Pre-operative examination- Primary Preoperative examination, [...] receptor positive (HCC) documented in this encounter [facility] note* Diagnosis Pre-operative examination- Primary Preoperative examination, [...] positive (HCC)- Primary documented in this encounter [facility] note* Diagnosis Pre-operative examination- Primary Preoperative examination, [...] receptor positive (HCC) documented in this encounter [facility] note* Diagnosis Pre-operative examination- Primary Preoperative examination, [...] receptor positive (HCC) documented in this encounter [facility] note* Diagnosis Pre-operative examination- Primary Preoperative examination, [...] receptor positive (HCC) documented in this encounter [facility] note* Diagnosis Pre-operative examination- Primary Preoperative examination, [...] by other means documented in this encounter [facility] note* Diagnosis Pre-operative examination- Primary Preoperative examination, [...] essential hypertension Palpitations [facility] Diagnosis Pre-operative examination- Primary Preoperative examination, [...] adult Palpitations- Primary documented in this encounter [facility] note* Diagnosis Pre-operative examination- Primary Preoperative examination, [...] Axillary pain, left documented [facility] Diagnosis Pre-operative examination- Primary Preoperative examination, [...] aftercare following surgery documented in this encounter [facility] note* Diagnosis Pre-operative examination- Primary Preoperative examination, [...] Seroma of breast documented in this encounter [facility] note* Diagnosis Pre-operative examination- Primary Preoperative examination, [...] Unspecified essential hypertension documented in this encounter [facility] note* Diagnosis Pre-operative examination- Primary Preoperative examination, [...] intrathoracic lymph nodes documented in this encounter [facility] note* Diagnosis Pre-operative examination- Primary Preoperative examination, [...] by other means documented in this encounter [facility] note* Diagnosis Pre-operative examination- Primary Preoperative examination, [...] 2 diabetes mellitus without complication, unspecified whether long term care administrator insulin use (HCC)- Primary Medication management Encounter for long-term (current) use of other medications documented in this encounter [facility] note* Diagnosis Pre-operative examination- Primary Preoperative examination, [...] Seroma of breast documented [facility] Diagnosis Pre-operative examination- Primary Preoperative examination, [...] intrathoracic lymph nodes documented in this encounter [facility] note* Diagnosis Pre-operative examination- Primary Preoperative examination, [...] Nontoxic uninodular goiter documented [facility] Diagnosis Pre-operative examination- Primary Preoperative examination, [...] Other postprocedural status documented in this encounter [facility] note* Diagnosis Pre-operative examination- Primary Preoperative examination, [...] intrathoracic lymph nodes documented in this encounter [facility] note* Diagnosis Pre-operative examination- Primary Preoperative examination, [...] Nontoxic uninodular goiter documented in this encounter [facility] note* Diagnosis Pre-operative examination- Primary Preoperative examination, [...] condition classified elsewhere [facility] Diagnosis Pre-operative examination- Primary Preoperative examination, [...] 2 diabetes mellitus without complication, unspecified whether senior living insulin use (HCC)- Primary documented in this encounter [facility] note* Diagnosis Pre-operative examination- Primary Preoperative examination, [...] Other postprocedural status documented in this encounter [facility] note* Diagnosis Pre-operative examination- Primary Preoperative examination, [...] adult Palpitations- Primary documented in this encounter [facility] note* Diagnosis Pre-operative examination- Primary Preoperative examination, [...] Seroma of breast documented in this encounter [facility] note* Diagnosis Pre-operative examination- Primary Preoperative examination, [...] 2 diabetes mellitus without complication, unspecified whether long term care administrator insulin use (HCC)- Primary documented in this encounter [facility] note* Diagnosis Pre-operative examination- Primary Preoperative examination, [...] Seroma of breast documented in this encounter [facility] note* Diagnosis Pre-operative examination- Primary Preoperative examination, [...] Primary Other lymphedema documented in this encounter [facility] note* Diagnosis Pre-operative examination- Primary Preoperative examination, [...] site not specified documented in this encounter [facility] note* Diagnosis Pre-operative examination- Primary Preoperative examination, [...] left arm- Primary documented in this encounter [facility] note* Diagnosis Pre-operative examination- Primary Preoperative examination, [...] by other means documented in this encounter [facility] note* Diagnosis Pre-operative examination- Primary Preoperative examination, [...] 2 diabetes mellitus without complication, unspecified whether senior living insulin use (HCC)- Primary documented in this encounter [facility] note* Diagnosis Pre-operative examination- Primary Preoperative examination, [...] left arm- Primary documented in this encounter [facility] note* Diagnosis Pre-operative examination- Primary Preoperative examination, [...] of insulin (HCC) documented [facility] Diagnosis Pre-operative examination- Primary Preoperative examination, [...] kidney and ureter documented in this encounter [facility] note* Diagnosis Pre-operative examination- Primary Preoperative examination, [...] left arm- Primary documented in this encounter [facility] note* Diagnosis Pre-operative examination- Primary Preoperative examination, [...] hematuria, site unspecified documented in this encounter [facility] note* Diagnosis Pre-operative examination- Primary Preoperative examination, [...] 2 diabetes mellitus without complication, unspecified whether long term care administrator insulin use (HCC)- Primary Diabetes mellitus treated with insulin (HCC)- Primary documented in this encounter [facility] note* Diagnosis Pre-operative examination- Primary Preoperative examination, [...] insulin (HCC)- Primary documented in this encounter [facility] note* Diagnosis Pre-operative examination- Primary Preoperative examination, [...] insulin (HCC)- Primary documented in this encounter [facility] note* Diagnosis Pre-operative examination- Primary Preoperative examination, [...] insulin (HCC)- Primary documented in this encounter [facility] note* Diagnosis Pre-operative examination- Primary Preoperative examination, [...] insulin (HCC)- Primary documented in this encounter [facility] note* Diagnosis Pre-operative examination- Primary Preoperative examination, [...] left upper limb documented in this encounter [facility] note* Diagnosis Pre-operative examination- Primary Preoperative examination, [...] left arm- Primary documented in this encounter [facility] note* Diagnosis Pre-operative examination- Primary Preoperative examination, [...] left arm- Primary documented in this encounter [facility] note* Diagnosis Pre-operative examination- Primary Preoperative examination, [...] left arm- Primary documented in this encounter [facility] note* Diagnosis Pre-operative examination- Primary Preoperative examination, [...] kidney and ureter documented in this encounter [facility] note* Diagnosis Pre-operative examination- Primary Preoperative examination, [...] intrathoracic lymph nodes documented in this encounter [facility] note* Diagnosis Pre-operative examination- Primary Preoperative examination, [...] left arm- Primary documented in this encounter [facility] note* Diagnosis Pre-operative examination- Primary Preoperative examination, [...] of breast (HCC) [facility]* Diagnosis Onset Date Resolution Status Admit Date 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, 2024 11:07am Hyperlipemia, mixed acute November 02, 2024 11:07am HTN (hypertension) chronic October [id number] 11:07am [facility] Work Phone: Evaluation note* Diagnosis Pre-operative examination- [...] left arm- Primary documented in this encounter [facility] note* Diagnosis Pre-operative examination- Primary Preoperative examination, [...] medication (HCC)- Primary documented in this encounter [facility] note* Diagnosis Pre-operative examination- Primary Preoperative examination, [...] left arm- Primary documented in this encounter [facility] note* Diagnosis Pre-operative examination- Primary Preoperative examination, [...] intrathoracic lymph nodes documented in this encounter [facility] for referral (narrative)* Diagnostic Procedure Only (Routine) - Authorized Specialty Diagnoses / Procedures Referred By Contac t Referred To Contact [facility] Diagnoses Malignant neoplasm of lower-outer quadrant of left breast of female, estrogen receptor positive (HCC) Procedures US BREAST LTD LEFT US BREAST UNI REAL [place] [id number] [place] [address] [facility] [address] [place] [id number] Referral ID Status Reason Start Date Expiration Date Visits Requested Visits Authorized [id number] Authorized Auto-Generat ed Referral 07/04/2022 08/03/2023 1 1 [facility] for referral (narrative)* Diagnostic Procedure Only (Routine) - Pending Review Specialty Diagnoses / Procedures Referred By Contac t Referred To Contact [facility] Diagnoses Abnormal ultrasound of breast Procedures US BIOPSY BREAST LEFT BX BREAST W/DEVICE 1ST LESION ULTRASOUND [place] [id number] [place] [address] [facility] [address] [place] [id number] Referral ID Status Reason Start Date Expiration Date Visits Requested Visits Authorized [id number] Pending Review Auto-Generat ed Referral 07/19/2022 08/18/2023 1 1 T [facility] for referral (narrative)* Outpatient Procedure (Urgent) - Pending Review Specialty Diagnoses / Procedures [facility] By [facility] Referred To Contact [facility] Diagnoses Adenopathy Procedures ECG COMPLETE ECG ROUTINE ECG W/LEAST 12 LDS W/I&R Kam Dangelo MD [address] [place] [address] [address] Referral ID Status Reason Start Date Expiration Date Visits Requested Visits Authorized [id number] Pending Review Auto-Generat ed Referral 08/06/2022 08/06/2023 1 1 T [facility] for referral (narrative)* Outpatient Procedure (Routine) - Pending Review Specialty Diagnoses / Procedures Referred By [facility] Referred To Contact [facility] Diagnoses Malignant neoplasm of lower-outer quadrant of left breast of female, estrogen receptor positive (HCC) 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) Procedures ECG COMPLETE ECG ROUTINE ECG W/LEAST 12 LDS W/I&R Serena Carrasco DO [address] [place] [address] [facility] [place] [address] [place] [address] Referral ID Status Reason Start Date Expiration Date Visits Requested Visits Authorized [id number] Pending Review Auto-Generat ed Referral 11/01/2022 11/01/2023 1 1 [facility] for referral (narrative)* Outpatient Procedure (Routine) - Authorized Specialty Diagnoses / Procedures Referred By Parmjit cabrera Referred [facility] Diagnoses 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) Procedures ECG COMPLETE ECG ROUTINE ECG W/LEAST 12 LDS W/I&R Serena Carrasco DO [address] [place] [address] [facility] [place] [address] [place] [address] Referral ID Status Reason Start Date Expiration Date Visits Requested Visits Authorized [id number] Authorized Auto-Generat ed Referral 11/28/2022 11/28/2023 2 2 [facility] for referral (narrative)* Diagnostic Procedure Only [...] CT ATTENUATION SKULL BASE MID-THIGH Kassy Raman, FELICIA.SECURITY GUARD DISPATCHER [address] [place] [address] [facility] [address] [place] [address] Referral ID Status Reason Start Date Expiration Date Visits Requested Visits Authorized [id number] Authorized Auto-Generat ed Referral 3 02/13/2023 1 1 [facility] for referral (narrative)* Diagnostic Procedure Only [...] CT ATTENUATION SKULL BASE MID-THIGH Kassy Raman APRN.SECURITY GUARD DISPATCHER [address] [place] [address] [facility] [address] [place] [address] Referral ID Status Reason Start Date Expiration Date V isits Requested Visits Authorized [id number] Closed Auto-Generate d Referral 01/15/2023 02/13/2023 1 1 [facility] for referral (narrative)* Diagnostic Procedure Only [...] RADEX SPINE THORACIC 2 VIEWS Kassy Raman APRN.SECURITY GUARD DISPATCHER [address] [place] [address] [facility] [place] [address] Referral ID Status Reason Start Date Expiration Date Visits Requested Visits Authorized [id number] Pending Review Auto-Generat ed Referral 3 02/28/2024 1 1 [facility] for referral (narrative)* Diagnostic Procedure Only (Routine) - Authorized Specialty Diagnoses / Procedures Referred By Parmjit t Referred To Contact MOLECULAR & FUNCTIONAL IMAGING Diagnoses Malignant neoplasm of lower-outer quadrant of left breast of female, estrogen receptor positive (HCC) Procedures NM PET/CT SKULL-THIGH SUBSEQUENT PET IMAGING CT ATTENUATION SKULL BASE MID-THIGH Serena Carrasco DO [address] [place] [address] [facility] [address] [place] [address] Referral ID Status Reason Start Date Expiration Date Visits Requested Visits Authorized [id number] Authorized Auto-Generat ed Referral 08/05/2023 09/03/2023 2 2 * Outpatient Procedure (Routine) - Authorized Specialty Diagnoses / Procedures Referred By Parmjit cabrera Referred [facility] Diagnoses Chemotherapy-induced cardiomyopathy (HCC) Encounter for monitoring cardiotoxic drug therapy Procedures ECHO ECHO TTHRC R-T 2D W/WOM-MODE COMPL SPEC&COLR D Serena Carrasco DO [address] [place] [address] [facility] [place] [address] [place] [address] Referral ID Status Reason Start Date Expiration Date Visits Requested Visits Authorized [id number] Authorized Auto-Generat ed Referral 08/05/2023 08/04/2024 1 1 [facility] for referral (narrative)* Diagnostic Procedure Only (Routine) - Additional Clinical Info Needed Specialty Diagnoses / Procedures Referred By Parmjit cabrera Referred To Contact MOLECULAR & FUNCTIONAL IMAGING Diagnoses 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) Procedures NM PET/CT SKULL-THIGH SUBSEQUENT PET IMAGING CT ATTENUATION SKULL BASE MID-THIGH Serena Carrasco DO [address] [place] [address] [facility] [address] [place] [address] Referral ID Status Reason Start Date Expiration Date Visits Requested Visits Authorized [id number] Additional Clinical Info Needed Auto-Generat ed Referral 11/11/2023 12/10/2024 1 1 [facility] for referral (narrative)* Diagnostic Procedure Only (Routine) - Authorized Specialty Diagnoses / Procedures Referred By Contac t Referred To Contact US IMAGING Diagnoses Right upper quadrant pain Procedures US ABD RIGHT UPPER QUADRANT US ABDOMINAL REAL TIME W/IMAGE LIMITED Serena Carrasco, DO [address] [place] [address] [facility] [place] [address] Referral ID Status Reason Start Date Expiration Date Visits Requested Visits Authorized [id number] Authorized Auto-Generat ed Referral 11/13/2023 12/12/2024 1 1 [facility] for referral (narrative)* Diagnostic Procedure Only (Routine) - Closed Specialty Diagnoses / Procedures Referred By Contac t Referred To Contact MOLECULAR [facility] FUNCTIONAL IMAGING Diagnoses 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) Procedures NM PET/CT SKULL-THIGH SUBSEQUENT PET IMAGING CT ATTENUATION SKULL BASE MID-THIGH Serena Carrasco, DO [address] [place] [address] [facility] [address] [place] [address] Referral ID Status Reason Start Date Expiration Date V isits Requested Visits Authorized [id number] Closed Auto-Generate d Referral 12/13/2023 01/11/2024 1 1 [facility] for referral (narrative)* Diagnostic Procedure Only (Routine) - Closed Specialty Diagnoses / Procedures Referred By Contac t Referred To Contact XR IMAGING Diagnoses Right hip pain Procedures XR PELVIS 1V AP RADIOLOGIC EXAMINATION PELVIS 1/2 VIEWS Subhash Avila PA-C [address] [place] [address] [facility] [address] Referral ID Status Reason Start Date Expiration Date V isits Requested Visits Authorized [id number] Closed Auto-Generate d Referral 03/20/2022 04/19/2023 1 1 [facility] for referral (narrative)* Diagnostic Procedure Only [...] ATTENUATION SKULL BASE MID-THIGH Serena Carrasco DO [address] [facility] [address] Molecular [facility] Imaging [address] [place] [address] Referral ID Status Reason Start Date Expiration Date Visits Requested Visits Authorized [id number] Pending Review Auto-Generat ed Referral 01/06/2024 02/04/2025 1 1 * Consult, Test, Treat (Routine) - Authorized Specialty Diagnoses / Procedures Referred By Contclaudia t Referred To Contact Endocrinology Diagnoses Type 2 diabetes mellitus with other specified complication, without long-term current use of insulin (HCC) Procedures CONSULT TO ENDOCRINOLOGY OFFICE/OUTPATIENT [facility] 60 MINUTES Serena Carrasco DO [address] [facility] [address] Referral ID Status Reason Start Date Expiration Date Visits Requested Visits Authorized [id number] Authorized PCP Requested Referral 01/06/2024 01/05/2025 1 1 [facility] for referral (narrative)* Diagnostic Procedure Only (Routine) - Closed Specialty Diagnoses / Procedures Referred By Contac t Referred To Contact XR IMAGING Diagnoses Pain in right hip Procedures XR HIP 2V AP/LAT RIGHT (AK,FL,ME,UN) RADEX HIP UNILATERAL WITH PELVIS 2-3 VIEWS Subhash Avila PA-C [address] [place] [address] [place] [address] Referral ID Status Reason Start Date Expiration Date V isits Requested Visits Authorized [id number] Closed Auto-Generate d Referral 01/03/2024 02/01/2025 1 1 [facility] for referral (narrative)* Diagnostic Procedure Only (Routine) - New Request Specialty Diagnoses / Procedures Referred By Contac t Referred To Contact [facility] Diagnoses Malignant neoplasm of lower-outer quadrant of left breast of female, estrogen receptor positive (HCC) Procedures SAMANTHA DIAGNOSTIC RIGHT DIAGNOSTIC MAMMOGRAPHY COMPUTER-[place] [address] [place] [address] [facility] [address] [place] [address] Referral ID Status Reason Start Date Expiration Date Visits Requested Visits Authorized [id number] New Request Auto-Generat ed Referral 03/28/2025 1 1 [facility] for referral (narrative)* Diagnostic Procedure Only (Routine) - Authorized Specialty Diagnoses / Procedures Referred By Contac t Referred To Contact US IMAGING Diagnoses Malignant neoplasm of left breast in female, estrogen receptor positive, unspecified site of breast (HCC) Swelling of limb Procedures US DVT UPPER LEFT DUP-SCAN XTR VEINS UNILATERAL/LIMITED STUDY Serena Carrasco DO [address] [place] [address] [place] [address] Referral ID Status Reason Start Date Expiration Date Visits Requested Visits Authorized [id number] Authorized Auto-Generat ed Referral 04/10/2024 05/10/2025 1 [...] Serena Carrasco DO [address] [place] [address] [facility] [place] [address] [place] [address] Referral ID Status Reason Start Date Expiration Date Visits Requested Visits Authorized [id number] New Request Auto-Generat ed Referral 04/10/2024 04/10/2025 1 1 [facility] for referral (narrative)* Diagnostic Procedure Only (Routine) - Closed Specialty Diagnoses / Procedures Referred By Contac t Referred To Contact US IMAGING Diagnoses Malignant neoplasm of left breast in female, estrogen receptor positive, unspecified site of breast (HCC) Swelling of limb Procedures US DVT UPPER LEFT DUP-SCAN XTR VEINS UNILATERAL/LIMITED STUDY Serena Carrasco DO [address] [place] [address] [place] [address] Referral ID Status Reason Start Date Expiration Date V isits Requested Visits Authorized [id number] Closed Auto-Generate d Referral 04/10/2024 05/10/2025 1 1 [facility] for referral (narrative)* Diagnostic Procedure Only (Routine) - Authorized Specialty Diagnoses / Procedures [facility] Referred To Contact [facility]ULAR [facility] FUNCTIONAL IMAGING Diagnoses Malignant neoplasm of left breast in female, estrogen receptor positive, unspecified site of breast (HCC) 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 lymph node (HCC) Procedures NM PET/CT SKULL-THIGH SUBSEQUENT PET IMAGING CT ATTENUATION SKULL BASE MID-THIGH Serena Carrasco DO [address] [place] [address] [facility] [address] [place] [address] Referral ID Status Reason Start Date Expiration Date Visits Requested Visits Authorized [id number] Authorized Auto-Generat ed Referral 04/13/2024 05/13/2025 1 1 [facility] for referral (narrative)No reason for referral information [facility] Phone: [facility] Narrative* Diagnostic Procedure Only [...] CT ATTENUATION SKULL BASE MID-THIGH Kassy Raman APRN.SECURITY GUARD DISPATCHER [address] [place] [address] Molecular [facility] [address] [place] [address] Referral ID Status Reason Start Date Expiration Date V isits Requested Visits Authorized [id number] Closed Auto-Generate d Referral 01/15/2023 02/13/2023 1 1 [facility] for visit Narrative* Diagnostic Procedure Only [...] MID-THIGH Serena Carrasco DO [address] [place] [address] [facility] Imaging [address] [place] [address] Referral ID Status Reason Start Date Expiration Date V isits Requested Visits Authorized [id number] Closed Auto-Generate d Referral 08/16/2023 09/14/2023 2 2 [facility] for visit Narrative* Diagnostic Procedure Only (Routine) - Closed Specialty Diagnoses / Procedures Referred By Contac t Referred To Contact US IMAGING Diagnoses Right upper quadrant pain Procedures US ABD RIGHT UPPER QUADRANT US ABDOMINAL REAL TIME W/IMAGE LIMITED Serena Carrasco, DO [address] [place] [address] [place] [address] Referral ID Status Reason Start Date Expiration Date V isits Requested Visits Authorized [id number] Closed Auto-Generate d Referral 11/13/2023 12/12/2024 1 1 [facility] for visit Narrative* Diagnostic Procedure Only (Routine) - Closed Specialty Diagnoses / Procedures Referred By Contac t Referred To Contact MOLECULAR [facility] FUNCTIONAL IMAGING Diagnoses 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) Procedures NM PET/CT SKULL-THIGH SUBSEQUENT PET IMAGING CT ATTENUATION SKULL BASE MID-THIGH Serena Carrasco, DO [address] [place] [address] [facility] [address] [place] [address] Referral ID Status Reason Start Date Expiration Date V isits Requested Visits Authorized [id number] Closed Auto-Generate d Referral 12/13/2023 01/11/2024 1 1 [facility] for visit Narrative* Diagnostic Procedure Only (Routine) - Closed Specialty Diagnoses / Procedures Referred By Contac t Referred To Contact XR IMAGING Diagnoses Right hip pain Procedures XR PELVIS 1V AP RADIOLOGIC EXAMINATION PELVIS 1/2 VIEWS Subhash Avila PA-C [address] [place] [address] [place] [address] Referral ID Status Reason Start Date Expiration Date V isits Requested Visits Authorized [id number] Closed Auto-Generate d Referral 03/20/2022 04/19/2023 1 1 [facility] for visit Narrative* Diagnostic Procedure Only (Routine) - Closed Specialty Diagnoses / Procedures Referred By Contac t Referred To Contact XR IMAGING Diagnoses Pain in right hip Procedures XR HIP 2V AP/LAT RIGHT (AK,FL,ME,UN) RADEX HIP UNILATERAL WITH PELVIS 2-3 VIEWS Subhash Avila PA-C [address] [place] [address] [place] [address] Referral ID Status Reason Start Date Expiration Date V isits Requested Visits Authorized [id number] Closed Auto-Generate d Referral 01/03/2024 02/01/2025 1 1 [facility] for visit Narrative* Diagnostic Procedure Only (Routine) - Closed Specialty Diagnoses / Procedures Ref[facility] By [facility] Referred To Contact MOLECULAR & FUNCTIONAL [...] ATTENUATION SKULL BASE MID-THIGH Serena Carrasco DO [address] [place] [address] Molecular [facility] Functional Imaging [address] [place] [address] Referral ID Status Reason Start Date Expiration Date V isits Requested Visits Authorized [id number] Closed Auto-Generate d Referral 01/06/2024 02/04/2025 1 1 [facility] for visit Narrative* Diagnostic Procedure Only (Routine) - Closed Specialty Diagnoses / Procedures Referred [facility] Referred To Contact [facility] IM[facility] Diagnoses Malignant neoplasm of left breast in female, estrogen receptor positive, unspecified site of breast (HCC) Swelling of limb Procedures US DVT UPPER LEFT DUP-SCAN XTR VEINS UNILATERAL/LIMITED STUDY Serena Carrasco DO [address] [place] [address] Us Imaging [facility] Referral ID Status Reason Start Date Expiration Date V isits Requested Visits Authorized [id number] Closed Auto-Generate d Referral 04/10/2024 05/10/2025 1 1 [facility] for visit Narrative* Auth/Cert (Routine) Specialty Diagnoses / Procedures Referred By Parmjit cabrera Referred To Contact [facility] Diagnoses Malignant neoplasm of lower-outer [...] ALL INTRACAPSULAR CONTENTS MASTECTOMY PARTIAL Ambulatory Surgery [address] [place] [address] Referral ID Status Reason Start Date Expiration Date Visits Re quested Visits Authorized [id number] 1 1 [facility] for visit Narrative* Diagnostic Procedure Only [...] MID-THIGH Serena Carrasco, DO [address] [place] [address] Phone: tel: fax: Molecular Imaging [address] [place] [address] Phone: tel: Referral ID Status Reason Start Date Expiration Date V isits Requested Visits Authorized [id number] Closed Auto-Generate d Referral 04/13/2024 05/13/2025 1 1 [facility] for visit Narrative* Diagnostic Procedure Only (Urgent) - Closed Specialty Diagnoses / Procedures Referred By Parmjit cabrera Referred To Contact US IMAGING Diagnoses Acute renal insufficiency Other microscopic hematuria Procedures US KIDNEY/BLADDER US RETROPERITONEAL REAL TIME W/IMAGE COMPLETE Nel Day M, 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 [address] [place] [address] Phone: tel: fax: [place] [address] Referral ID Status Reason Start Date Expiration Date V isits Requested Visits Authorized [id number] Closed Auto-Generate d Referral 09/23/2024 10/23/2025 1 1 [facility] for visit Narrative* Diagnostic Procedure Only [...] MID-THIGH Serena Carrasco, DO [address] [place] [address] Phone: tel: fax: Molecular Imaging [address] [place], [place] [address] Phone: tel: Referral ID Status Reason Start Date Expiration Date V isits Requested Visits Authorized [id number] Closed Auto-Generate d Referral 07/09/2024 08/08/2025 1 1 [facility] Instructions Name Dates Details Non-smoker : How [...] FoundDocuments on File Type Date Recorded Patient Lace Weaver Expl anation Advance Directive(s) 09/24/2017 4:22 PM Date Activated Date Inactivated Comments 03/31/2019 1:31 PM 08/14/2022 8:33 AM Latest Code Status on File Code Status Date Activated Date Inactivated Comments Full Code 03/31/2019 1:31 PM Documents on File Type Date Recorded Patient Lace Weaver Expl anation Advance Directive(s) 03/20/2019 6:42 AM Advance Directive(s) 03/09/2019 12:12 PM Advance Directive(s) 08/29/2018 9:49 AM Advance Directive(s) 08/08/2018 9:48 AM Advance Directive(s) 09/24/2017 4:06 PM Advance Directive(s) 09/24/2017 4:23 PM Advance Directive(s) 09/24/2017 4:22 PM Advance Directive Response Recorded Date/ Time Advance Directives Yes June 07 10:05am Living Will No April 23 10:55am Power of Resident In Diagnostic Radiology No April 23, 2017 10:55am Documents on File Type Date Recorded Patient Lace Weaver Expl anation Advance Directive(s) 09/24/2017 4:22 PM [...] No July 08, 2023 6:21pm Power of Resident In Diagnostic Radiology No July 07 6:21pm Date Activated Date Inactivated Comments 03/31/2019 1:31 PM 08/14/2022 8:33 AM Advance Directive Response Recorded Date/ Time Advance Directives Yes June 07 10:05am Medications Administered Section Inactive Administered Medications - up to 3 most recent administrations Medication Order MAR Action Action Date Dose Rate Site zoledronic ka-tbrrdrzq-0.9NaCl 4 mg iv piggyback 100 mL (ZOMETA) 4 mg, INTRAVENOUS, Administer over 15 Minutes, ONCE, 1 dose, On Sat08/07/21 at 0930, Hazardous Potential Reproductive Risk Drug: Use appropriate PPE. New Bag/Syringe/Bottle 08/07/2021 9:12 AM EDT 4 mg Inactive Administered Medications - up to 3 most recent administrations Medication Order MAR Action Action Date Dose Rate Site zoledronic wl-wumbjsfj-8.9NaCl 4 mg iv piggyback 100 mL (ZOMETA) 4 mg, INTRAVENOUS, Administer over 15 Minutes, ONCE, 1 dose, On Sat01/22/22 at 1130, Hazardous Potential Reproductive Risk Drug: Use appropriate PPE. New Bag/Syringe/Bottle 01/22/2022 11:40 AM EDT 4 mg Inactive Administered Medications - up to 3 most recent administrations Medication Order MAR Action Action Date Dose Rate Site zoledronic lu-gmtswlft-3.9NaCl 4 mg iv piggyback 100 mL (ZOMETA) [...] 45 MINS Subhash Avila PA-C [address] [place] [address] [facility] [address] [address] Referral ID Status Reason Start Date Expiration Date Visits Requested Visits Authorized [id number] Pending Review Auto-Generat ed Referral 2 03/26/2023 [...] Serena Carrasco DO [address] [place] [address] Mr Imaging Referral ID Status Reason Start Date Expiration Date V isits Requested Visits Authorized [id number] Closed Auto-Generate d Referral 07/26/2022 08/25/2023 1 1 Specialty Diagnoses / Procedures Referred By Contac t Referred To Contact MR IMAGING Diagnoses Malignant neoplasm of lower-outer quadrant of left breast of female, estrogen receptor positive (HCC) Procedures MRI BREAST WO/W IVCON BILATERAL MRI BREAST WITHOUT&WITH CONTRAST W/[place] [address] [place] [address] Mr Imaging Referral ID Status Reason Start Date Expiration Date Visits Requested Visits Authorized [id number] Authorized Auto-Generat ed Referral 08/01/2022 08/31/2023 1 1 Specialty Diagnoses / Procedures Referred By Contac t Referred To Contact BR IMAGING Diagnoses Malignant neoplasm of lower-outer quadrant of left breast of female, estrogen receptor positive (HCC) Procedures US BREAST LTD LEFT US BREAST UNI REAL TIME WITH IMAGE [place] [id number] [place] [address] [facility] [address] [place] [address] Referral ID Status Reason Start Date Expiration Date V isits Requested Visits Authorized [id number] Closed Auto-Generate d Referral 08/01/2022 04/07/2023 1 1 Referral ID Status Reason Start Date Expiration Date V isits Requested Visits Authorized [id number] Closed Auto-Generate d Referral 08/01/2022 08/31/2023 1 1 Specialty Diagnoses / Procedures Referred By Contac t Referred To Contact Orthopedics Diagnoses Cervicalgia Procedures CONSULT TO ORTHOPAEDICS OFFICE/OUTPATIENT [facility] 60-74 MINUTES 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, 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 [address] [place] [address] Referral ID Status Reason Start Date Expiration Date Visits Requested Visits Authorized [id number] Authorized PCP Requested Referral 02/12/2023 02/12/2024 1 1 Specialty Diagnoses / Procedures Referred By Contac t Referred To Contact MR IMAGING Diagnoses Malignant neoplasm of lower-outer quadrant of left breast of female, estrogen receptor positive (HCC) Procedures MRI BREAST WO/W IVCON BILATERAL MRI BREAST WITHOUT&WITH CONTRAST W/[place] [address] [place] [address] [place] [address] Referral ID Status Reason Start Date Expiration Date Visits Requested Visits Authorized [id number] New Request Auto-Generat ed Referral 01/06/2024 02/04/2025 1 1 Specialty Diagnoses / Procedures Referred By Contac t Referred To Contact Diagnoses Poorly control type 2 diabetes mellitus (HCC) Procedures ENDOCRINOLOGY DIETITIAN VISIT (MNT) MEDICAL NUTRITION ASSMT&IVNTJ INDIV EACH 15 ME MEDICAL NUTRITION ASSMT&IVNTJ INDIV EACH 15 ME MEDICAL NUTRITION ASSMT&IVNTJ INDIV EACH 15 ME MEDICAL NUTRITION ASSMT&IVNTJ INDIV EACH 15 ME Daisy Titus APRN.SECURITY GUARD DISPATCHER [address] [place] [address] Referral ID Status Reason Start Date Expiration Date Visits Requested Visits Authorized [id number] Authorized PCP Requested Referral 02/04/2025 1 1 Specialty Diagnoses / Procedures Referred By Contac t Referred To Contact [facility] Diagnoses Malignant neoplasm of lower-outer quadrant of left breast of female, estrogen receptor positive (HCC) Lymphedema of left arm Procedures CONSULT TO LYMPHEDEMA THERAPY OFFICE/OUTPATIENT NEW HIGH MDM 60 MINUTES Serena Carrasco, [address] [place] [address] [facility] [place] [address] [place] [address] Referral ID Status Reason Start Date Expiration Date Visits Requested Visits Authorized [id number] Authorized Auto-Generat ed Referral 04/13/2024 04/13/2025 99 [id number] Additional Source Comments INFORMATION SOURCE (unrecogn ized section and content) DATE CREATED AUTHOR 08/22/2019 [facility] ([place]) DATE CREATED AUTHOR AUTHOR'S ORGANIZ ATION 08/18/2022 [facility] DATE CREATED AUTHOR AUTHOR'S ORGANIZ ATION 07/17/2024 [facility] DATE CREATED AUTHOR AUTHOR'S ORGANIZ ATION 09/26/2024 [facility] DATE CREATED AUTHOR AUTHOR'S ORGANIZ ATION 10/27/2024 [facility] DATE CREATED AUTHOR AUTHOR'S ORGANIZ ATION 11/14/2024 [facility] DATE CREATED AUTHOR AUTHOR'S ORGANIZ ATION 11/15/2024 [facility] DATE CREATED AUTHOR AUTHOR'S ORGANIZ ATION 11/15/2024 [facility] Source Comments (unrecognize d section and content) In the event this informatio n is protected by the Federal Confidentiality of Alcohol and Drug Abuse Patient Records regulations: The Federal rules restrict any use of the information to criminally investigate or prosecute any alcohol or drug abuse patient.[facility]In the event this information is protected by the Federal Confidentiality of Alcohol and Drug Abuse Patient Records regulations: The Federal rules restrict any use of the information to criminally investigate or prosecute any alcohol or drug abuse patient.[facility] NorthIn the event this information is protected by the Federal Confidentiality of Alcohol and Drug Abuse Patient Records regulations: The Federal rules restrict any use of the information to criminally investigate or prosecute any alcohol or drug abuse patient.[facility] NorthIn the event this information is protected by the Federal Confidentiality of Alcohol and Drug Abuse Patient Records regulations: The Federal rules restrict any use of the information to criminally investigate or prosecute any alcohol or drug abuse patient.[facility] NorthIn the event this information is protected by the Federal Confidentiality of Alcohol and Drug Abuse Patient Records regulations: The Federal rules restrict any use of the information to criminally investigate or prosecute any alcohol or drug abuse patient.[facility] NorthIn the event this information is protected by the Federal Confidentiality of Alcohol and Drug Abuse Patient Records regulations: The Federal rules restrict any use of the information to criminally investigate or prosecute any alcohol or drug abuse patient.[facility] NorthIn the event this information is protected by the Federal Confidentiality of Alcohol and Drug Abuse Patient Records regulations: The Federal rules restrict any use of the information to criminally investigate or prosecute any alcohol or drug abuse patient.[facility] NorthIn the event this information is protected by the Federal Confidentiality of Alcohol and Drug Abuse Patient Records regulations: The Federal rules restrict any use of the information to criminally investigate or prosecute any alcohol or drug abuse patient.[facility] NorthIn the event this information is protected by the Federal Confidentiality of Alcohol and Drug Abuse Patient Records regulations: The Federal rules restrict any use of the information to criminally investigate or prosecute any alcohol or drug abuse patient.[facility] NorthIn the event this information is protected by the Federal Confidentiality of Alcohol and Drug Abuse Patient Records regulations: The Federal rules restrict any use of the information to criminally investigate or prosecute any alcohol or drug abuse patient.[facility] NorthIn the event this information is protected by the Federal Confidentiality of Alcohol and Drug Abuse Patient Records regulations: The Federal rules restrict any use of the information to criminally investigate or prosecute any alcohol or drug abuse patient.[facility] NorthIn the event this information is protected by the Federal Confidentiality of Alcohol and Drug Abuse Patient Records regulations: The Federal rules restrict any use of the information to criminally investigate or prosecute any alcohol or drug abuse patient.[facility] NorthIn the event this information is protected by the Federal Confidentiality of Alcohol and Drug Abuse Patient Records regulations: The Federal rules restrict any use of the information to criminally investigate or prosecute any alcohol or drug abuse patient.[facility] NorthIn the event this information is protected by the Federal Confidentiality of Alcohol and Drug Abuse Patient Records regulations: The Federal rules restrict any use of the information to criminally investigate or prosecute any alcohol or drug abuse patient.[facility] NorthIn the event this information is protected by the Federal Confidentiality of Alcohol and Drug Abuse Patient Records regulations: The Federal rules restrict any use of the information to criminally investigate or prosecute any alcohol or drug abuse patient.[facility] NorthIn the event this information is protected by the Federal Confidentiality of Alcohol and Drug Abuse Patient Records regulations: The Federal rules restrict any use of the information to criminally investigate or prosecute any alcohol or drug abuse patient.[facility] NorthIn the event this information is protected by the Federal Confidentiality of Alcohol and Drug Abuse Patient Records regulations: The Federal rules restrict any use of the information to criminally investigate or prosecute any alcohol or drug abuse patient.[facility] NorthIn the event this information is protected by the Federal Confidentiality of Alcohol and Drug Abuse Patient Records regulations: The Federal rules restrict any use of the information to criminally investigate or prosecute any alcohol or drug abuse patient.[facility] NorthIn the event this information is protected by the Federal Confidentiality of Alcohol and Drug Abuse Patient Records regulations: The Federal rules restrict any use of the information to criminally investigate or prosecute any alcohol or drug abuse patient.[facility] NorthIn the event this information is protected by the Federal Confidentiality of Alcohol and Drug Abuse Patient Records regulations: The Federal rules restrict any use of the information to criminally investigate or prosecute any alcohol or drug abuse patient.[facility] NorthIn the event this information is protected by the Federal Confidentiality of Alcohol and Drug Abuse Patient Records regulations: The Federal rules restrict any use of the information to criminally investigate or prosecute any alcohol or drug abuse patient.[facility] NorthIn the event this information is protected by the Federal Confidentiality of Alcohol and Drug Abuse Patient Records regulations: The Federal rules restrict any use of the information to criminally investigate or prosecute any alcohol or drug abuse patient.[facility] NorthIn the event this information is protected by the Federal Confidentiality of Alcohol and Drug Abuse Patient Records regulations: The Federal rules restrict any use of the information to criminally investigate or prosecute any alcohol or drug abuse patient.[facility] NorthIn the event this information is protected by the Federal Confidentiality of Alcohol and Drug Abuse Patient Records regulations: The Federal rules restrict any use of the information to criminally investigate or prosecute any alcohol or drug abuse patient.[facility] NorthIn the event this information is protected by the Federal Confidentiality of Alcohol and Drug Abuse Patient Records regulations: The Federal rules restrict any use of the information to criminally investigate or prosecute any alcohol or drug abuse patient.[facility] NorthIn the event this information is protected by the Federal Confidentiality of Alcohol and Drug Abuse Patient Records regulations: The Federal rules restrict any use of the information to criminally investigate or prosecute any alcohol or drug abuse patient.[facility] NorthIn the event this information is protected by the Federal Confidentiality of Alcohol and Drug Abuse Patient Records regulations: The Federal rules restrict any use of the information to criminally investigate or prosecute any alcohol or drug abuse patient.[facility] NorthIn the event this information is protected by the Federal Confidentiality of Alcohol and Drug Abuse Patient Records regulations: The Federal rules restrict any use of the information to criminally investigate or prosecute any alcohol or drug abuse patient.[facility] NorthIn the event this information is protected by the Federal Confidentiality of Alcohol and Drug Abuse Patient Records regulations: The Federal rules restrict any use of the information to criminally investigate or prosecute any alcohol or drug abuse patient.[facility] NorthIn the event this information is protected by the Federal Confidentiality of Alcohol and Drug Abuse Patient Records regulations: The Federal rules restrict any use of the information to criminally investigate or prosecute any alcohol or drug abuse patient.[facility] NorthIn the event this information is protected by the Federal Confidentiality of Alcohol and Drug Abuse Patient Records regulations: The Federal rules restrict any use of the information to criminally investigate or prosecute any alcohol or drug abuse patient.[facility] NorthIn the event this information is protected by the Federal Confidentiality of Alcohol and Drug Abuse Patient Records regulations: The Federal rules restrict any use of the information to criminally investigate or prosecute any alcohol or drug abuse patient.[facility] NorthIn the event this information is protected by the Federal Confidentiality of Alcohol and Drug Abuse Patient Records regulations: The Federal rules restrict any use of the information to criminally investigate or prosecute any alcohol or drug abuse patient.[facility] NorthIn the event this information is protected by the Federal Confidentiality of Alcohol and Drug Abuse Patient Records regulations: The Federal rules restrict any use of the information to criminally investigate or prosecute any alcohol or drug abuse patient.[facility] NorthIn the event this information is protected by the Federal Confidentiality of Alcohol and Drug Abuse Patient Records regulations: The Federal rules restrict any use of the information to criminally investigate or prosecute any alcohol or drug abuse patient.[facility] NorthIn the event this information is protected by the Federal Confidentiality of Alcohol and Drug Abuse Patient Records regulations: The Federal rules restrict any use of the information to criminally investigate or prosecute any alcohol or drug abuse patient.[facility] NorthIn the event this information is protected by the Federal Confidentiality of Alcohol and Drug Abuse Patient Records regulations: The Federal rules restrict any use of the information to criminally investigate or prosecute any alcohol or drug abuse patient.[facility] NorthIn the event this information is protected by the Federal Confidentiality of Alcohol and Drug Abuse Patient Records regulations: The Federal rules restrict any use of the information to criminally investigate or prosecute any alcohol or drug abuse patient.[facility] NorthIn the event this information is protected by the Federal Confidentiality of Alcohol and Drug Abuse Patient Records regulations: The Federal rules restrict any use of the information to criminally investigate or prosecute any alcohol or drug abuse patient.[facility] NorthIn the event this information is protected by the Federal Confidentiality of Alcohol and Drug Abuse Patient Records regulations: The Federal rules restrict any use of the information to criminally investigate or prosecute any alcohol or drug abuse patient.[facility] NorthIn the event this information is protected by the Federal Confidentiality of Alcohol and Drug Abuse Patient Records regulations: The Federal rules restrict any use of the information to criminally investigate or prosecute any alcohol or drug abuse patient.[facility] NorthIn the event this information is protected by the Federal Confidentiality of Alcohol and Drug Abuse Patient Records regulations: The Federal rules restrict any use of the information to criminally investigate or prosecute any alcohol or drug abuse patient.[facility] NorthIn the event this information is protected by the Federal Confidentiality of Alcohol and Drug Abuse Patient Records regulations: The Federal rules restrict any use of the information to criminally investigate or prosecute any alcohol or drug abuse patient.[facility] NorthIn the event this information is protected by the Federal Confidentiality of Alcohol and Drug Abuse Patient Records regulations: The Federal rules restrict any use of the information to criminally investigate or prosecute any alcohol or drug abuse patient.[facility] NorthIn the event this information is protected by the Federal Confidentiality of Alcohol and Drug Abuse Patient Records regulations: The Federal rules restrict any use of the information to criminally investigate or prosecute any alcohol or drug abuse patient.[facility] NorthIn the event this information is protected by the Federal Confidentiality of Alcohol and Drug Abuse Patient Records regulations: The Federal rules restrict any use of the information to criminally investigate or prosecute any alcohol or drug abuse patient.[facility] NorthIn the event this information is protected by the Federal Confidentiality of Alcohol and Drug Abuse Patient Records regulations: The Federal rules restrict any use of the information to criminally investigate or prosecute any alcohol or drug abuse patient.[facility] NorthIn the event this information is protected by the Federal Confidentiality of Alcohol and Drug Abuse Patient Records regulations: The Federal rules restrict any use of the information to criminally investigate or prosecute any alcohol or drug abuse patient.[facility] NorthIn the event this information is protected by the Federal Confidentiality of Alcohol and Drug Abuse Patient Records regulations: The Federal rules restrict any use of the information to criminally investigate or prosecute any alcohol or drug abuse patient.[facility] NorthIn the event this information is protected by the Federal Confidentiality of Alcohol and Drug Abuse Patient Records regulations: The Federal rules restrict any use of the information to criminally investigate or prosecute any alcohol or drug abuse patient.[facility] NorthIn the event this information is protected by the Federal Confidentiality of Alcohol and Drug Abuse Patient Records regulations: The Federal rules restrict any use of the information to criminally investigate or prosecute any alcohol or drug abuse patient.[facility] NorthIn the event this information is protected by the Federal Confidentiality of Alcohol and Drug Abuse Patient Records regulations: The Federal rules restrict any use of the information to criminally investigate or prosecute any alcohol or drug abuse patient.[facility] NorthIn the event this information is protected by the Federal Confidentiality of Alcohol and Drug Abuse Patient Records regulations: The Federal rules restrict any use of the information to criminally investigate or prosecute any alcohol or drug abuse patient.[facility] NorthIn the event this information is protected by the Federal Confidentiality of Alcohol and Drug Abuse Patient Records regulations: The Federal rules restrict any use of the information to criminally investigate or prosecute any alcohol or drug abuse patient.[facility] NorthIn the event this information is protected by the Federal Confidentiality of Alcohol and Drug Abuse Patient Records regulations: The Federal rules restrict any use of the information to criminally investigate or prosecute any alcohol or drug abuse patient.[facility] NorthIn the event this information is protected by the Federal Confidentiality of Alcohol and Drug Abuse Patient Records regulations: The Federal rules restrict any use of the information to criminally investigate or prosecute any alcohol or drug abuse patient.[facility] NorthIn the event this information is protected by the Federal Confidentiality of Alcohol and Drug Abuse Patient Records regulations: The Federal rules restrict any use of the information to criminally investigate or prosecute any alcohol or drug abuse patient.[facility] NorthIn the event this information is protected by the Federal Confidentiality of Alcohol and Drug Abuse Patient Records regulations: The Federal rules restrict any use of the information to criminally investigate or prosecute any alcohol or drug abuse patient.[facility] NorthIn the event this information is protected by the Federal Confidentiality of Alcohol and Drug Abuse Patient Records regulations: The Federal rules restrict any use of the information to criminally investigate or prosecute any alcohol or drug abuse patient.[facility] NorthIn the event this information is protected by the Federal Confidentiality of Alcohol and Drug Abuse Patient Records regulations: The Federal rules restrict any use of the information to criminally investigate or prosecute any alcohol or drug abuse patient.[facility] NorthIn the event this information is protected by the Federal Confidentiality of Alcohol and Drug Abuse Patient Records regulations: The Federal rules restrict any use of the information to criminally investigate or prosecute any alcohol or drug abuse patient.[facility] NorthIn the event this information is protected by the Federal Confidentiality of Alcohol and Drug Abuse Patient Records regulations: The Federal rules restrict any use of the information to criminally investigate or prosecute any alcohol or drug abuse patient.[facility] NorthIn the event this information is protected by the Federal Confidentiality of Alcohol and Drug Abuse Patient Records regulations: The Federal rules restrict any use of the information to criminally investigate or prosecute any alcohol or drug abuse patient.[facility] NorthIn the event this information is protected by the Federal Confidentiality of Alcohol and Drug Abuse Patient Records regulations: The Federal rules restrict any use of the information to criminally investigate or prosecute any alcohol or drug abuse patient.[facility] NorthIn the event this information is protected by the Federal Confidentiality of Alcohol and Drug Abuse Patient Records regulations: The Federal rules restrict any use of the information to criminally investigate or prosecute any alcohol or drug abuse patient.[facility] NorthIn the event this information is protected by the Federal Confidentiality of Alcohol and Drug Abuse Patient Records regulations: The Federal rules restrict any use of the information to criminally investigate or prosecute any alcohol or drug abuse patient.[facility] NorthIn the event this information is protected by the Federal Confidentiality of Alcohol and Drug Abuse Patient Records regulations: The Federal rules restrict any use of the information to criminally investigate or prosecute any alcohol or drug abuse patient.[facility] NorthIn the event this information is protected by the Federal Confidentiality of Alcohol and Drug Abuse Patient Records regulations: The Federal rules restrict any use of the information to criminally investigate or prosecute any alcohol or drug abuse patient.[facility] NorthIn the event this information is protected by the Federal Confidentiality of Alcohol and Drug Abuse Patient Records regulations: The Federal rules restrict any use of the information to criminally investigate or prosecute any alcohol or drug abuse patient.[facility] NorthIn the event this information is protected by the Federal Confidentiality of Alcohol and Drug Abuse Patient Records regulations: The Federal rules restrict any use of the information to criminally investigate or prosecute any alcohol or drug abuse patient.[facility] NorthIn the event this information is protected by the Federal Confidentiality of Alcohol and Drug Abuse Patient Records regulations: The Federal rules restrict any use of the information to criminally investigate or prosecute any alcohol or drug abuse patient.[facility] NorthIn the event this information is protected by the Federal Confidentiality of Alcohol and Drug Abuse Patient Records regulations: The Federal rules restrict any use of the information to criminally investigate or prosecute any alcohol or drug abuse patient.[facility] NorthIn the event this information is protected by the Federal Confidentiality of Alcohol and Drug Abuse Patient Records regulations: The Federal rules restrict any use of the information to criminally investigate or prosecute any alcohol or drug abuse patient.[facility] NorthIn the event this information is protected by the Federal Confidentiality of Alcohol and Drug Abuse Patient Records regulations: The Federal rules restrict any use of the information to criminally investigate or prosecute any alcohol or drug abuse patient.[facility] NorthIn the event this information is protected by the Federal Confidentiality of Alcohol and Drug Abuse Patient Records regulations: The Federal rules restrict any use of the information to criminally investigate or prosecute any alcohol or drug abuse patient.[facility] NorthIn the event this information is protected by the Federal Confidentiality of Alcohol and Drug Abuse Patient Records regulations: The Federal rules restrict any use of the information to criminally investigate or prosecute any alcohol or drug abuse patient.[facility] NorthIn the event this information is protected by the Federal Confidentiality of Alcohol and Drug Abuse Patient Records regulations: The Federal rules restrict any use of the information to criminally investigate or prosecute any alcohol or drug abuse patient.[facility] NorthIn the event this information is protected by the Federal Confidentiality of Alcohol and Drug Abuse Patient Records regulations: The Federal rules restrict any use of the information to criminally investigate or prosecute any alcohol or drug abuse patient.[facility] NorthIn the event this information is protected by the Federal Confidentiality of Alcohol and Drug Abuse Patient Records regulations: The Federal rules restrict any use of the information to criminally investigate or prosecute any alcohol or drug abuse patient.[facility] NorthIn the event this information is protected by the Federal Confidentiality of Alcohol and Drug Abuse Patient Records regulations: The Federal rules restrict any use of the information to criminally investigate or prosecute any alcohol or drug abuse patient.[facility] NorthIn the event this information is protected by the Federal Confidentiality of Alcohol and Drug Abuse Patient Records regulations: The Federal rules restrict any use of the information to criminally investigate or prosecute any alcohol or drug abuse patient.[facility] NorthIn the event this information is protected by the Federal Confidentiality of Alcohol and Drug Abuse Patient Records regulations: The Federal rules restrict any use of the information to criminally investigate or prosecute any alcohol or drug abuse patient.[facility] NorthIn the event this information is protected by the Federal Confidentiality of Alcohol and Drug Abuse Patient Records regulations: The Federal rules restrict any use of the information to criminally investigate or prosecute any alcohol or drug abuse patient.[facility] NorthIn the event this information is protected by the Federal Confidentiality of Alcohol and Drug Abuse Patient Records regulations: The Federal rules restrict any use of the information to criminally investigate or prosecute any alcohol or drug abuse patient.[facility] NorthIn the event this information is protected by the Federal Confidentiality of Alcohol and Drug Abuse Patient Records regulations: The Federal rules restrict any use of the information to criminally investigate or prosecute any alcohol or drug abuse patient.[facility] NorthIn the event this information is protected by the Federal Confidentiality of Alcohol and Drug Abuse Patient Records regulations: The Federal rules restrict any use of the information to criminally investigate or prosecute any alcohol or drug abuse patient.[facility] NorthIn the event this information is protected by the Federal Confidentiality of Alcohol and Drug Abuse Patient Records regulations: The Federal rules restrict any use of the information to criminally investigate or prosecute any alcohol or drug abuse patient.[facility] NorthIn the event this information is protected by the Federal Confidentiality of Alcohol and Drug Abuse Patient Records regulations: The Federal rules restrict any use of the information to criminally investigate or prosecute any alcohol or drug abuse patient.[facility] NorthIn the event this information is protected by the Federal Confidentiality of Alcohol and Drug Abuse Patient Records regulations: The Federal rules restrict any use of the information to criminally investigate or prosecute any alcohol or drug abuse patient.[facility] NorthIn the event this information is protected by the Federal Confidentiality of Alcohol and Drug Abuse Patient Records regulations: The Federal rules restrict any use of the information to criminally investigate or prosecute any alcohol or drug abuse patient.[facility] NorthIn the event this information is protected by the Federal Confidentiality of Alcohol and Drug Abuse Patient Records regulations: The Federal rules restrict any use of the information to criminally investigate or prosecute any alcohol or drug abuse patient.[facility] NorthIn the event this information is protected by the Federal Confidentiality of Alcohol and Drug Abuse Patient Records regulations: The Federal rules restrict any use of the information to criminally investigate or prosecute any alcohol or drug abuse patient.[facility] NorthIn the event this information is protected by the Federal Confidentiality of Alcohol and Drug Abuse Patient Records regulations: The Federal rules restrict any use of the information to criminally investigate or prosecute any alcohol or drug abuse patient.[facility] NorthIn the event this information is protected by the Federal Confidentiality of Alcohol and Drug Abuse Patient Records regulations: The Federal rules restrict any use of the information to criminally investigate or prosecute any alcohol or drug abuse patient.[facility] NorthIn the event this information is protected by the Federal Confidentiality of Alcohol and Drug Abuse Patient Records regulations: The Federal rules restrict any use of the information to criminally investigate or prosecute any alcohol or drug abuse patient.[facility] NorthIn the event this information is protected by the Federal Confidentiality of Alcohol and Drug Abuse Patient Records regulations: The Federal rules restrict any use of the information to criminally investigate or prosecute any alcohol or drug abuse patient.[facility] NorthIn the event this information is protected by the Federal Confidentiality of Alcohol and Drug Abuse Patient Records regulations: The Federal rules restrict any use of the information to criminally investigate or prosecute any alcohol or drug abuse patient.[facility] NorthIn the event this information is protected by the Federal Confidentiality of Alcohol and Drug Abuse Patient Records regulations: The Federal rules restrict any use of the information to criminally investigate or prosecute any alcohol or drug abuse patient.[facility] NorthIn the event this information is protected by the Federal Confidentiality of Alcohol and Drug Abuse Patient Records regulations: The Federal rules restrict any use of the information to criminally investigate or prosecute any alcohol or drug abuse patient.[facility] NorthIn the event this information is protected by the Federal Confidentiality of Alcohol and Drug Abuse Patient Records regulations: The Federal rules restrict any use of the information to criminally investigate or prosecute any alcohol or drug abuse patient.[facility] NorthIn the event this information is protected by the Federal Confidentiality of Alcohol and Drug Abuse Patient Records regulations: The Federal rules restrict any use of the information to criminally investigate or prosecute any alcohol or drug abuse patient.[facility] NorthIn the event this information is protected by the Federal Confidentiality of Alcohol and Drug Abuse Patient Records regulations: The Federal rules restrict any use of the information to criminally investigate or prosecute any alcohol or drug abuse patient.[facility] NorthIn the event this information is protected by the Federal Confidentiality of Alcohol and Drug Abuse Patient Records regulations: The Federal rules restrict any use of the information to criminally investigate or prosecute any alcohol or drug abuse patient.[facility] NorthIn the event this information is protected by the Federal Confidentiality of Alcohol and Drug Abuse Patient Records regulations: The Federal rules restrict any use of the information to criminally investigate or prosecute any alcohol or drug abuse patient.[facility] NorthIn the event this information is protected by the Federal Confidentiality of Alcohol and Drug Abuse Patient Records regulations: The Federal rules restrict any use of the information to criminally investigate or prosecute any alcohol or drug abuse patient.[facility] NorthIn the event this information is protected by the Federal Confidentiality of Alcohol and Drug Abuse Patient Records regulations: The Federal rules restrict any use of the information to criminally investigate or prosecute any alcohol or drug abuse patient.[facility] NorthIn the event this information is protected by the Federal Confidentiality of Alcohol and Drug Abuse Patient Records regulations: The Federal rules restrict any use of the information to criminally investigate or prosecute any alcohol or drug abuse patient.[facility] NorthIn the event this information is protected by the Federal Confidentiality of Alcohol and Drug Abuse Patient Records regulations: The Federal rules restrict any use of the information to criminally investigate or prosecute any alcohol or drug abuse patient.[facility] NorthIn the event this information is protected by the Federal Confidentiality of Alcohol and Drug Abuse Patient Records regulations: The Federal rules restrict any use of the information to criminally investigate or prosecute any alcohol or drug abuse patient.[facility] NorthIn the event this information is protected by the Federal Confidentiality of Alcohol and Drug Abuse Patient Records regulations: The Federal rules restrict any use of the information to criminally investigate or prosecute any alcohol or drug abuse patient.[facility]In the event this information is protected by the Federal Confidentiality of Alcohol and Drug Abuse Patient Records regulations: The Federal rules restrict any use of the information to criminally investigate or prosecute any alcohol or drug abuse patient.[facility] NorthIn the event this information is protected by the Federal Confidentiality of Alcohol and Drug Abuse Patient Records regulations: The Federal rules restrict any use of the information to criminally investigate or prosecute any alcohol or drug abuse patient.[facility] NorthIn the event this information is protected by the Federal Confidentiality of Alcohol and Drug Abuse Patient Records regulations: The Federal rules restrict any use of the information to criminally investigate or prosecute any alcohol or drug abuse patient.[facility] NorthIn the event this information is protected by the Federal Confidentiality of Alcohol and Drug Abuse Patient Records regulations: The Federal rules restrict any use of the information to criminally investigate or prosecute any alcohol or drug abuse patient.[facility] NorthIn the event this information is protected by the Federal Confidentiality of Alcohol and Drug Abuse Patient Records regulations: The Federal rules restrict any use of the information to criminally investigate or prosecute any alcohol or drug abuse patient.[facility] NorthIn the event this information is protected by the Federal Confidentiality of Alcohol and Drug Abuse Patient Records regulations: The Federal rules restrict any use of the information to criminally investigate or prosecute any alcohol or drug abuse patient.[facility] NorthIn the event this information is protected by the Federal Confidentiality of Alcohol and Drug Abuse Patient Records regulations: The Federal rules restrict any use of the information to criminally investigate or prosecute any alcohol or drug abuse patient.[facility] NorthIn the event this information is protected by the Federal Confidentiality of Alcohol and Drug Abuse Patient Records regulations: The Federal rules restrict any use of the information to criminally investigate or prosecute any alcohol or drug abuse patient.[facility]In the event this information is protected by the Federal Confidentiality of Alcohol and Drug Abuse Patient Records regulations: The Federal rules restrict any use of the information to criminally investigate or prosecute any alcohol or drug abuse patient.[facility] NorthIn the event this information is protected by the Federal Confidentiality of Alcohol and Drug Abuse Patient Records regulations: The Federal rules restrict any use of the information to criminally investigate or prosecute any alcohol or drug abuse patient.[facility] NorthIn the event this information is protected by the Federal Confidentiality of Alcohol and Drug Abuse Patient Records regulations: The Federal rules restrict any use of the information to criminally investigate or prosecute any alcohol or drug abuse patient.[facility] NorthIn the event this information is protected by the Federal Confidentiality of Alcohol and Drug Abuse Patient Records regulations: The Federal rules restrict any use of the information to criminally investigate or prosecute any alcohol or drug abuse patient.[facility] NorthIn the event this information is protected by the Federal Confidentiality of Alcohol and Drug Abuse Patient Records regulations: The Federal rules restrict any use of the information to criminally investigate or prosecute any alcohol or drug abuse patient.[facility] NorthIn the event this information is protected by the Federal Confidentiality of Alcohol and Drug Abuse Patient Records regulations: The Federal rules restrict any use of the information to criminally investigate or prosecute any alcohol or drug abuse patient.[facility] NorthIn the event this information is protected by the Federal Confidentiality of Alcohol and Drug Abuse Patient Records regulations: The Federal rules restrict any use of the information to criminally investigate or prosecute any alcohol or drug abuse patient.[facility] NorthIn the event this information is protected by the Federal Confidentiality of Alcohol and Drug Abuse Patient Records regulations: The Federal rules restrict any use of the information to criminally investigate or prosecute any alcohol or drug abuse patient.[facility] NorthIn the event this information is protected by the Federal Confidentiality of Alcohol and Drug Abuse Patient Records regulations: The Federal rules restrict any use of the information to criminally investigate or prosecute any alcohol or drug abuse patient.[facility] NorthIn the event this information is protected by the Federal Confidentiality of Alcohol and Drug Abuse Patient Records regulations: The Federal rules restrict any use of the information to criminally investigate or prosecute any alcohol or drug abuse patient.[facility] NorthIn the event this information is protected by the Federal Confidentiality of Alcohol and Drug Abuse Patient Records regulations: The Federal rules restrict any use of the information to criminally investigate or prosecute any alcohol or drug abuse patient.[facility] NorthIn the event this information is protected by the Federal Confidentiality of Alcohol and Drug Abuse Patient Records regulations: The Federal rules restrict any use of the information to criminally investigate or prosecute any alcohol or drug abuse patient.[facility] NorthIn the event this information is protected by the Federal Confidentiality of Alcohol and Drug Abuse Patient Records regulations: The Federal rules restrict any use of the information to criminally investigate or prosecute any alcohol or drug abuse patient.[facility] NorthIn the event this information is protected by the Federal Confidentiality of Alcohol and Drug Abuse Patient Records regulations: The Federal rules restrict any use of the information to criminally investigate or prosecute any alcohol or drug abuse patient.[facility]In the event this information is protected by the Federal Confidentiality of Alcohol and Drug Abuse Patient Records regulations: The Federal rules restrict any use of the information to criminally investigate or prosecute any alcohol or drug abuse patient.[facility]In the event this information is protected by the Federal Confidentiality of Alcohol and Drug Abuse Patient Records regulations: The Federal rules restrict any use of the information to criminally investigate or prosecute any alcohol or drug abuse patient.[facility]In the event this information is protected by the Federal Confidentiality of Alcohol and Drug Abuse Patient Records regulations: The Federal rules restrict any use of the information to criminally investigate or prosecute any alcohol or drug abuse patient.[facility] NorthIn the event this information is protected by the Federal Confidentiality of Alcohol and Drug Abuse Patient Records regulations: The Federal rules restrict any use of the information to criminally investigate or prosecute any alcohol or drug abuse patient.[facility] NorthIn the event this information is protected by the Federal Confidentiality of Alcohol and Drug Abuse Patient Records regulations: The Federal rules restrict any use of the information to criminally investigate or prosecute any alcohol or drug abuse patient.[facility] NorthIn the event this information is protected by the Federal Confidentiality of Alcohol and Drug Abuse Patient Records regulations: The Federal rules restrict any use of the information to criminally investigate or prosecute any alcohol or drug abuse patient.[facility] NorthIn the event this information is protected by the Federal Confidentiality of Alcohol and Drug Abuse Patient Records regulations: The Federal rules restrict any use of the information to criminally investigate or prosecute any alcohol or drug abuse patient.[facility] NorthIn the event this information is protected by the Federal Confidentiality of Alcohol and Drug Abuse Patient Records regulations: The Federal rules restrict any use of the information to criminally investigate or prosecute any alcohol or drug abuse patient.[facility] NorthIn the event this information is protected by the Federal Confidentiality of Alcohol and Drug Abuse Patient Records regulations: The Federal rules restrict any use of the information to criminally investigate or prosecute any alcohol or drug abuse patient.[facility] NorthIn the event this information is protected by the Federal Confidentiality of Alcohol and Drug Abuse Patient Records regulations: The Federal rules restrict any use of the information to criminally investigate or prosecute any alcohol or drug abuse patient.[facility] NorthIn the event this information is protected by the Federal Confidentiality of Alcohol and Drug Abuse Patient Records regulations: The Federal rules restrict any use of the information to criminally investigate or prosecute any alcohol or drug abuse patient.[facility] NorthIn the event this information is protected by the Federal Confidentiality of Alcohol and Drug Abuse Patient Records regulations: The Federal rules restrict any use of the information to criminally investigate or prosecute any alcohol or drug abuse patient.[facility] NorthIn the event this information is protected by the Federal Confidentiality of Alcohol and Drug Abuse Patient Records regulations: The Federal rules restrict any use of the information to criminally investigate or prosecute any alcohol or drug abuse patient.[facility] NorthIn the event this information is protected by the Federal Confidentiality of Alcohol and Drug Abuse Patient Records regulations: The Federal rules restrict any use of the information to criminally investigate or prosecute any alcohol or drug abuse patient.[facility]In the event this information is protected by the Federal Confidentiality of Alcohol and Drug Abuse Patient Records regulations: The Federal rules restrict any use of the information to criminally investigate or prosecute any alcohol or drug abuse patient.[facility] NorthIn the event this information is protected by the Federal Confidentiality of Alcohol and Drug Abuse Patient Records regulations: The Federal rules restrict any use of the information to criminally investigate or prosecute any alcohol or drug abuse patient.[facility]In the event this information is protected by the Federal Confidentiality of Alcohol and Drug Abuse Patient Records regulations: The Federal rules restrict any use of the information to criminally investigate or prosecute any alcohol or drug abuse patient.[facility] NorthIn the event this information is protected by the Federal Confidentiality of Alcohol and Drug Abuse Patient Records regulations: The Federal rules restrict any use of the information to criminally investigate or prosecute any alcohol or drug abuse patient.[facility] NorthIn the event this information is protected by the Federal Confidentiality of Alcohol and Drug Abuse Patient Records regulations: The Federal rules restrict any use of the information to criminally investigate or prosecute any alcohol or drug abuse patient.[facility] NorthIn the event this information is protected by the Federal Confidentiality of Alcohol and Drug Abuse Patient Records regulations: The Federal rules restrict any use of the information to criminally investigate or prosecute any alcohol or drug abuse patient.[facility] NorthIn the event this information is protected by the Federal Confidentiality of Alcohol and Drug Abuse Patient Records regulations: The Federal rules restrict any use of the information to criminally investigate or prosecute any alcohol or drug abuse patient.[facility] NorthIn the event this information is protected by the Federal Confidentiality of Alcohol and Drug Abuse Patient Records regulations: The Federal rules restrict any use of the information to criminally investigate or prosecute any alcohol or drug abuse patient.[facility] NorthIn the event this information is protected by the Federal Confidentiality of Alcohol and Drug Abuse Patient Records regulations: The Federal rules restrict any use of the information to criminally investigate or prosecute any alcohol or drug abuse patient.[facility] NorthIn the event this information is protected by the Federal Confidentiality of Alcohol and Drug Abuse Patient Records regulations: The Federal rules restrict any use of the information to criminally investigate or prosecute any alcohol or drug abuse patient.[facility] NorthIn the event this information is protected by the Federal Confidentiality of Alcohol and Drug Abuse Patient Records regulations: The Federal rules restrict any use of the information to criminally investigate or prosecute any alcohol or drug abuse patient.[facility] NorthIn the event this information is protected by the Federal Confidentiality of Alcohol and Drug Abuse Patient Records regulations: The Federal rules restrict any use of the information to criminally investigate or prosecute any alcohol or drug abuse patient.[facility] NorthIn the event this information is protected by the Federal Confidentiality of Alcohol and Drug Abuse Patient Records regulations: The Federal rules restrict any use of the information to criminally investigate or prosecute any alcohol or drug abuse patient.[facility]In the event this information is protected by the Federal Confidentiality of Alcohol and Drug Abuse Patient Records regulations: The Federal rules restrict any use of the information to criminally investigate or prosecute any alcohol or drug abuse patient.[facility] NorthIn the event this information is protected by the Federal Confidentiality of Alcohol and Drug Abuse Patient Records regulations: The Federal rules restrict any use of the information to criminally investigate or prosecute any alcohol or drug abuse patient.[facility] NorthIn the event this information is protected by the Federal Confidentiality of Alcohol and Drug Abuse Patient Records regulations: The Federal rules restrict any use of the information to criminally investigate or prosecute any alcohol or drug abuse patient.[facility] NorthIn the event this information is protected by the Federal Confidentiality of Alcohol and Drug Abuse Patient Records regulations: The Federal rules restrict any use of the information to criminally investigate or prosecute any alcohol or drug abuse patient.[facility] NorthIn the event this information is protected by the Federal Confidentiality of Alcohol and Drug Abuse Patient Records regulations: The Federal rules restrict any use of the information to criminally investigate or prosecute any alcohol or drug abuse patient.[facility] NorthIn the event this information is protected by the Federal Confidentiality of Alcohol and Drug Abuse Patient Records regulations: The Federal rules restrict any use of the information to criminally investigate or prosecute any alcohol or drug abuse patient.[facility] NorthIn the event this information is protected by the Federal Confidentiality of Alcohol and Drug Abuse Patient Records regulations: The Federal rules restrict any use of the information to criminally investigate or prosecute any alcohol or drug abuse patient.[facility] NorthIn the event this information is protected by the Federal Confidentiality of Alcohol and Drug Abuse Patient Records regulations: The Federal rules restrict any use of the information to criminally investigate or prosecute any alcohol or drug abuse patient.[facility] NorthIn the event this information is protected by the Federal Confidentiality of Alcohol and Drug Abuse Patient Records regulations: The Federal rules restrict any use of the information to criminally investigate or prosecute any alcohol or drug abuse patient.[facility] NorthIn the event this information is protected by the Federal Confidentiality of Alcohol and Drug Abuse Patient Records regulations: The Federal rules restrict any use of the information to criminally investigate or prosecute any alcohol or drug abuse patient.[facility] NorthIn the event this information is protected by the Federal Confidentiality of Alcohol and Drug Abuse Patient Records regulations: The Federal rules restrict any use of the information to criminally investigate or prosecute any alcohol or drug abuse patient.[facility] NorthIn the event this information is protected by the Federal Confidentiality of Alcohol and Drug Abuse Patient Records regulations: The Federal rules restrict any use of the information to criminally investigate or prosecute any alcohol or drug abuse patient.[facility] NorthIn the event this information is protected by the Federal Confidentiality of Alcohol and Drug Abuse Patient Records regulations: The Federal rules restrict any use of the information to criminally investigate or prosecute any alcohol or drug abuse patient.[facility] NorthIn the event this information is protected by the Federal Confidentiality of Alcohol and Drug Abuse Patient Records regulations: The Federal rules restrict any use of the information to criminally investigate or prosecute any alcohol or drug abuse patient.[facility] NorthIn the event this information is protected by the Federal Confidentiality of Alcohol and Drug Abuse Patient Records regulations: The Federal rules restrict any use of the information to criminally investigate or prosecute any alcohol or drug abuse patient.[facility] NorthIn the event this information is protected by the Federal Confidentiality of Alcohol and Drug Abuse Patient Records regulations: The Federal rules restrict any use of the information to criminally investigate or prosecute any alcohol or drug abuse patient.[facility] NorthIn the event this information is protected by the Federal Confidentiality of Alcohol and Drug Abuse Patient Records regulations: The Federal rules restrict any use of the information to criminally investigate or prosecute any alcohol or drug abuse patient.[facility] NorthIn the event this information is protected by the Federal Confidentiality of Alcohol and Drug Abuse Patient Records regulations: The Federal rules restrict any use of the information to criminally investigate or prosecute any alcohol or drug abuse patient.[facility]In the event this information is protected by the Federal Confidentiality of Alcohol and Drug Abuse Patient Records regulations: The Federal rules restrict any use of the information to criminally investigate or prosecute any alcohol or drug abuse patient.[facility]In the event this information is protected by the Federal Confidentiality of Alcohol and Drug Abuse Patient Records regulations: The Federal rules restrict any use of the information to criminally investigate or prosecute any alcohol or drug abuse patient.[facility]In the event this information is protected by the Federal Confidentiality of Alcohol and Drug Abuse Patient Records regulations: The Federal rules restrict any use of the information to criminally investigate or prosecute any alcohol or drug abuse patient.[facility]In the event this information is protected by the Federal Confidentiality of Alcohol and Drug Abuse Patient Records regulations: The Federal rules restrict any use of the information to criminally investigate or prosecute any alcohol or drug abuse patient.[facility] NorthIn the event this information is protected by the Federal Confidentiality of Alcohol and Drug Abuse Patient Records regulations: The Federal rules restrict any use of the information to criminally investigate or prosecute any alcohol or drug abuse patient.[facility]In the event this information is protected by the Federal Confidentiality of Alcohol and Drug Abuse Patient Records regulations: The Federal rules restrict any use of the information to criminally investigate or prosecute any alcohol or drug abuse patient.[facility]In the event this information is protected by the Federal Confidentiality of Alcohol and Drug Abuse Patient Records regulations: The Federal rules restrict any use of the information to criminally investigate or prosecute any alcohol or drug abuse patient.[facility]In the event this information is protected by the Federal Confidentiality of Alcohol and Drug Abuse Patient Records regulations: The Federal rules restrict any use of the information to criminally investigate or prosecute any alcohol or drug abuse patient.[facility]In the event this information is protected by the Federal Confidentiality of Alcohol and Drug Abuse Patient Records regulations: The Federal rules restrict any use of the information to criminally investigate or prosecute any alcohol or drug abuse patient.[facility]In the event this information is protected by the Federal Confidentiality of Alcohol and Drug Abuse Patient Records regulations: The Federal rules restrict any use of the information to criminally investigate or prosecute any alcohol or drug abuse patient.[facility]In the event this information is protected by the Federal Confidentiality of Alcohol and Drug Abuse Patient Records regulations: The Federal rules restrict any use of the information to criminally investigate or prosecute any alcohol or drug abuse patient.[facility]In the event this information is protected by the Federal Confidentiality of Alcohol and Drug Abuse Patient Records regulations: The Federal rules restrict any use of the information to criminally investigate or prosecute any alcohol or drug abuse patient.[facility]In the event this information is protected by the Federal Confidentiality of Alcohol and Drug Abuse Patient Records regulations: The Federal rules restrict any use of the information to criminally investigate or prosecute any alcohol or drug abuse patient.[facility]In the event this information is protected by the Federal Confidentiality of Alcohol and Drug Abuse Patient Records regulations: The Federal rules restrict any use of the information to criminally investigate or prosecute any alcohol or drug abuse patient.[facility]In the event this information is protected by the Federal Confidentiality of Alcohol and Drug Abuse Patient Records regulations: The Federal rules restrict any use of the information to criminally investigate or prosecute any alcohol or drug abuse patient.[facility]In the event this information is protected by the Federal Confidentiality of Alcohol and Drug Abuse Patient Records regulations: The Federal rules restrict any use of the information to criminally investigate or prosecute any alcohol or drug abuse patient.[facility]In the event this information is protected by the Federal Confidentiality of Alcohol and Drug Abuse Patient Records regulations: The Federal rules restrict any use of the information to criminally investigate or prosecute any alcohol or drug abuse patient.[facility]In the event this information is protected by the Federal Confidentiality of Alcohol and Drug Abuse Patient Records regulations: The Federal rules restrict any use of the information to criminally investigate or prosecute any alcohol or drug abuse patient.[facility]In the event this information is protected by the Federal Confidentiality of Alcohol and Drug Abuse Patient Records regulations: The Federal rules restrict any use of the information to criminally investigate or prosecute any alcohol or drug abuse patient.[facility]In the event this information is protected by the Federal Confidentiality of Alcohol and Drug Abuse Patient Records regulations: The Federal rules restrict any use of the information to criminally investigate or prosecute any alcohol or drug abuse patient.[facility]In the event this information is protected by the Federal Confidentiality of Alcohol and Drug Abuse Patient Records regulations: The Federal rules restrict any use of the information to criminally investigate or prosecute any alcohol or drug abuse patient.[facility]In the event this information is protected by the Federal Confidentiality of Alcohol and Drug Abuse Patient Records regulations: The Federal rules restrict any use of the information to criminally investigate or prosecute any alcohol or drug abuse patient.[facility]In the event this information is protected by the Federal Confidentiality of Alcohol and Drug Abuse Patient Records regulations: The Federal rules restrict any use of the information to criminally investigate or prosecute any alcohol or drug abuse patient.[facility]In the event this information is protected by the Federal Confidentiality of Alcohol and Drug Abuse Patient Records regulations: The Federal rules restrict any use of the information to criminally investigate or prosecute any alcohol or drug abuse patient.[facility]In the event this information is protected by the Federal Confidentiality of Alcohol and Drug Abuse Patient Records regulations: The Federal rules restrict any use of the information to criminally investigate or prosecute any alcohol or drug abuse patient.[facility]In the event this information is protected by the Federal Confidentiality of Alcohol and Drug Abuse Patient Records regulations: The Federal rules restrict any use of the information to criminally investigate or prosecute any alcohol or drug abuse patient.[facility]In the event this information is protected by the Federal Confidentiality of Alcohol and Drug Abuse Patient Records regulations: The Federal rules restrict any use of the information to criminally investigate or prosecute any alcohol or drug abuse patient.[facility]In the event this information is protected by the Federal Confidentiality of Alcohol and Drug Abuse Patient Records regulations: The Federal rules restrict any use of the information to criminally investigate or prosecute any alcohol or drug abuse patient.[facility] NorthIn the event this information is protected by the Federal Confidentiality of Alcohol and Drug Abuse Patient Records regulations: The Federal rules restrict any use of the information to criminally investigate or prosecute any alcohol or drug abuse patient.[facility]In the event this information is protected by the Federal Confidentiality of Alcohol and Drug Abuse Patient Records regulations: The Federal rules restrict any use of the information to criminally investigate or prosecute any alcohol or drug abuse patient.[facility]In the event this information is protected by the Federal Confidentiality of Alcohol and Drug Abuse Patient Records regulations: The Federal rules restrict any use of the information to criminally investigate or prosecute any alcohol or drug abuse patient.[facility]In the event this information is protected by the Federal Confidentiality of Alcohol and Drug Abuse Patient Records regulations: The Federal rules restrict any use of the information to criminally investigate or prosecute any alcohol or drug abuse patient.[facility]In the event this information is protected by the Federal Confidentiality of Alcohol and Drug Abuse Patient Records regulations: The Federal rules restrict any use of the information to criminally investigate or prosecute any alcohol or drug abuse patient.[facility]In the event this information is protected by the Federal Confidentiality of Alcohol and Drug Abuse Patient Records regulations: The Federal rules restrict any use of the information to criminally investigate or prosecute any alcohol or drug abuse patient.[facility]In the event this information is protected by the Federal Confidentiality of Alcohol and Drug Abuse Patient Records regulations: The Federal rules restrict any use of the information to criminally investigate or prosecute any alcohol or drug abuse patient.[facility]In the event this information is protected by the Federal Confidentiality of Alcohol and Drug Abuse Patient Records regulations: The Federal rules restrict any use of the information to criminally investigate or prosecute any alcohol or drug abuse patient.[facility]In the event this information is protected by the Federal Confidentiality of Alcohol and Drug Abuse Patient Records regulations: The Federal rules restrict any use of the information to criminally investigate or prosecute any alcohol or drug abuse patient.[facility]In the event this information is protected by the Federal Confidentiality of Alcohol and Drug Abuse Patient Records regulations: The Federal rules restrict any use of the information to criminally investigate or prosecute any alcohol or drug abuse patient.[facility]In the event this information is protected by the Federal Confidentiality of Alcohol and Drug Abuse Patient Records regulations: The Federal rules restrict any use of the information to criminally investigate or prosecute any alcohol or drug abuse patient.[facility]In the event this information is protected by the Federal Confidentiality of Alcohol and Drug Abuse Patient Records regulations: The Federal rules restrict any use of the information to criminally investigate or prosecute any alcohol or drug abuse patient.[facility]In the event this information is protected by the Federal Confidentiality of Alcohol and Drug Abuse Patient Records regulations: The Federal rules restrict any use of the information to criminally investigate or prosecute any alcohol or drug abuse patient.[facility]In the event this information is protected by the Federal Confidentiality of Alcohol and Drug Abuse Patient Records regulations: The Federal rules restrict any use of the information to criminally investigate or prosecute any alcohol or drug abuse patient.[facility] NorthIn the event this information is protected by the Federal Confidentiality of Alcohol and Drug Abuse Patient Records regulations: The Federal rules restrict any use of the information to criminally investigate or prosecute any alcohol or drug abuse patient.[facility] NorthIn the event this information is protected by the Federal Confidentiality of Alcohol and Drug Abuse Patient Records regulations: The Federal rules restrict any use of the information to criminally investigate or prosecute any alcohol or drug abuse patient.[facility] NorthIn the event this information is protected by the Federal Confidentiality of Alcohol and Drug Abuse Patient Records regulations: The Federal rules restrict any use of the information to criminally investigate or prosecute any alcohol or drug abuse patient.[facility] NorthIn the event this information is protected by the Federal Confidentiality of Alcohol and Drug Abuse Patient Records regulations: The Federal rules restrict any use of the information to criminally investigate or prosecute any alcohol or drug abuse patient.[facility] NorthIn the event this information is protected by the Federal Confidentiality of Alcohol and Drug Abuse Patient Records regulations: The Federal rules restrict any use of the information to criminally investigate or prosecute any alcohol or drug abuse patient.[facility]In the event this information is protected by the Federal Confidentiality of Alcohol and Drug Abuse Patient Records regulations: The Federal rules restrict any use of the information to criminally investigate or prosecute any alcohol or drug abuse patient.[facility]In the event this information is protected by the Federal Confidentiality of Alcohol and Drug Abuse Patient Records regulations: The Federal rules restrict any use of the information to criminally investigate or prosecute any alcohol or drug abuse patient.[facility]In the event this information is protected by the Federal Confidentiality of Alcohol and Drug Abuse Patient Records regulations: The Federal rules restrict any use of the information to criminally investigate or prosecute any alcohol or drug abuse patient.[facility]In the event this information is protected by the Federal Confidentiality of Alcohol and Drug Abuse Patient Records regulations: The Federal rules restrict any use of the information to criminally investigate or prosecute any alcohol or drug abuse patient.[facility]In the event this information is protected by the Federal Confidentiality of Alcohol and Drug Abuse Patient Records regulations: The Federal rules restrict any use of the information to criminally investigate or prosecute any alcohol or drug abuse patient.[facility]In the event this information is protected by the Federal Confidentiality of Alcohol and Drug Abuse Patient Records regulations: The Federal rules restrict any use of the information to criminally investigate or prosecute any alcohol or drug abuse patient.[facility] NorthIn the event this information is protected by the Federal Confidentiality of Alcohol and Drug Abuse Patient Records regulations: The Federal rules restrict any use of the information to criminally investigate or prosecute any alcohol or drug abuse patient.[facility]In the event this information is protected by the Federal Confidentiality of Alcohol and Drug Abuse Patient Records regulations: The Federal rules restrict any use of the information to criminally investigate or prosecute any alcohol or drug abuse patient.[facility]In the event this information is protected by the Federal Confidentiality of Alcohol and Drug Abuse Patient Records regulations: The Federal rules restrict any use of the information to criminally investigate or prosecute any alcohol or drug abuse patient.[facility] NorthIn the event this information is protected by the Federal Confidentiality of Alcohol and Drug Abuse Patient Records regulations: The Federal rules restrict any use of the information to criminally investigate or prosecute any alcohol or drug abuse patient.[facility] NorthIn the event this information is protected by the Federal Confidentiality of Alcohol and Drug Abuse Patient Records regulations: The Federal rules restrict any use of the information to criminally investigate or prosecute any alcohol or drug abuse patient.[facility]In the event this information is protected by the Federal Confidentiality of Alcohol and Drug Abuse Patient Records regulations: The Federal rules restrict any use of the information to criminally investigate or prosecute any alcohol or drug abuse patient.[facility] NorthIn the event this information is protected by the Federal Confidentiality of Alcohol and Drug Abuse Patient Records regulations: The Federal rules restrict any use of the information to criminally investigate or prosecute any alcohol or drug abuse patient.[facility] NorthIn the event this information is protected by the Federal Confidentiality of Alcohol and Drug Abuse Patient Records regulations: The Federal rules restrict any use of the information to criminally investigate or prosecute any alcohol or drug abuse patient.[facility] NorthIn the event this information is protected by the Federal Confidentiality of Alcohol and Drug Abuse Patient Records regulations: The Federal rules restrict any use of the information to criminally investigate or prosecute any alcohol or drug abuse patient.[facility] NorthIn the event this information is protected by the Federal Confidentiality of Alcohol and Drug Abuse Patient Records regulations: The Federal rules restrict any use of the information to criminally investigate or prosecute any alcohol or drug abuse patient.[facility] NorthIn the event this information is protected by the Federal Confidentiality of Alcohol and Drug Abuse Patient Records regulations: The Federal rules restrict any use of the information to criminally investigate or prosecute any alcohol or drug abuse patient.[facility] NorthIn the event this information is protected by the Federal Confidentiality of Alcohol and Drug Abuse Patient Records regulations: The Federal rules restrict any use of the information to criminally investigate or prosecute any alcohol or drug abuse patient.[facility] NorthIn the event this information is protected by the Federal Confidentiality of Alcohol and Drug Abuse Patient Records regulations: The Federal rules restrict any use of the information to criminally investigate or prosecute any alcohol or drug abuse patient.[facility] NorthIn the event this information is protected by the Federal Confidentiality of Alcohol and Drug Abuse Patient Records regulations: The Federal rules restrict any use of the information to criminally investigate or prosecute any alcohol or drug abuse patient.[facility] NorthIn the event this information is protected by the Federal Confidentiality of Alcohol and Drug Abuse Patient Records regulations: The Federal rules restrict any use of the information to criminally investigate or prosecute any alcohol or drug abuse patient.[facility] NorthIn the event this information is protected by the Federal Confidentiality of Alcohol and Drug Abuse Patient Records regulations: The Federal rules restrict any use of the information to criminally investigate or prosecute any alcohol or drug abuse patient.[facility] NorthIn the event this information is protected by the Federal Confidentiality of Alcohol and Drug Abuse Patient Records regulations: The Federal rules restrict any use of the information to criminally investigate or prosecute any alcohol or drug abuse patient.[facility] NorthIn the event this information is protected by the Federal Confidentiality of Alcohol and Drug Abuse Patient Records regulations: The Federal rules restrict any use of the information to criminally investigate or prosecute any alcohol or drug abuse patient.[facility] NorthIn the event this information is protected by the Federal Confidentiality of Alcohol and Drug Abuse Patient Records regulations: The Federal rules restrict any use of the information to criminally investigate or prosecute any alcohol or drug abuse patient.[facility] NorthIn the event this information is protected by the Federal Confidentiality of Alcohol and Drug Abuse Patient Records regulations: The Federal rules restrict any use of the information to criminally investigate or prosecute any alcohol or drug abuse patient.[facility] NorthIn the event this information is protected by the Federal Confidentiality of Alcohol and Drug Abuse Patient Records regulations: The Federal rules restrict any use of the information to criminally investigate or prosecute any alcohol or drug abuse patient.[facility] NorthIn the event this information is protected by the Federal Confidentiality of Alcohol and Drug Abuse Patient Records regulations: The Federal rules restrict any use of the information to criminally investigate or prosecute any alcohol or drug abuse patient.[facility] NorthIn the event this information is protected by the Federal Confidentiality of Alcohol and Drug Abuse Patient Records regulations: The Federal rules restrict any use of the information to criminally investigate or prosecute any alcohol or drug abuse patient.[facility] NorthIn the event this information is protected by the Federal Confidentiality of Alcohol and Drug Abuse Patient Records regulations: The Federal rules restrict any use of the information to criminally investigate or prosecute any alcohol or drug abuse patient.[facility] NorthIn the event this information is protected by the Federal Confidentiality of Alcohol and Drug Abuse Patient Records regulations: The Federal rules restrict any use of the information to criminally investigate or prosecute any alcohol or drug abuse patient.[facility] NorthIn the event this information is protected by the Federal Confidentiality of Alcohol and Drug Abuse Patient Records regulations: The Federal rules restrict any use of the information to criminally investigate or prosecute any alcohol or drug abuse patient.[facility] NorthIn the event this information is protected by the Federal Confidentiality of Alcohol and Drug Abuse Patient Records regulations: The Federal rules restrict any use of the information to criminally investigate or prosecute any alcohol or drug abuse patient.[facility] NorthIn the event this information is protected by the Federal Confidentiality of Alcohol and Drug Abuse Patient Records regulations: The Federal rules restrict any use of the information to criminally investigate or prosecute any alcohol or drug abuse patient.[facility] NorthIn the event this information is protected by the Federal Confidentiality of Alcohol and Drug Abuse Patient Records regulations: The Federal rules restrict any use of the information to criminally investigate or prosecute any alcohol or drug abuse patient.[facility] NorthIn the event this information is protected by the Federal Confidentiality of Alcohol and Drug Abuse Patient Records regulations: The Federal rules restrict any use of the information to criminally investigate or prosecute any alcohol or drug abuse patient.[facility] NorthIn the event this information is protected by the Federal Confidentiality of Alcohol and Drug Abuse Patient Records regulations: The Federal rules restrict any use of the information to criminally investigate or prosecute any alcohol or drug abuse patient.[facility] NorthIn the event this information is protected by the Federal Confidentiality of Alcohol and Drug Abuse Patient Records regulations: The Federal rules restrict any use of the information to criminally investigate or prosecute any alcohol or drug abuse patient.[facility] NorthIn the event this information is protected by the Federal Confidentiality of Alcohol and Drug Abuse Patient Records regulations: The Federal rules restrict any use of the information to criminally investigate or prosecute any alcohol or drug abuse patient.[facility] NorthIn the event this information is protected by the Federal Confidentiality of Alcohol and Drug Abuse Patient Records regulations: The Federal rules restrict any use of the information to criminally investigate or prosecute any alcohol or drug abuse patient.[facility] NorthIn the event this information is protected by the Federal Confidentiality of Alcohol and Drug Abuse Patient Records regulations: The Federal rules restrict any use of the information to criminally investigate or prosecute any alcohol or drug abuse patient.[facility] NorthIn the event this information is protected by the Federal Confidentiality of Alcohol and Drug Abuse Patient Records regulations: The Federal rules restrict any use of the information to criminally investigate or prosecute any alcohol or drug abuse patient.[facility] NorthIn the event this information is protected by the Federal Confidentiality of Alcohol and Drug Abuse Patient Records regulations: The Federal rules restrict any use of the information to criminally investigate or prosecute any alcohol or drug abuse patient.[facility] NorthIn the event this information is protected by the Federal Confidentiality of Alcohol and Drug Abuse Patient Records regulations: The Federal rules restrict any use of the information to criminally investigate or prosecute any alcohol or drug abuse patient.[facility] NorthIn the event this information is protected by the Federal Confidentiality of Alcohol and Drug Abuse Patient Records regulations: The Federal rules restrict any use of the information to criminally investigate or prosecute any alcohol or drug abuse patient.[facility] NorthIn the event this information is protected by the Federal Confidentiality of Alcohol and Drug Abuse Patient Records regulations: The Federal rules restrict any use of the information to criminally investigate or prosecute any alcohol or drug abuse patient.[facility] NorthIn the event this information is protected by the Federal Confidentiality of Alcohol and Drug Abuse Patient Records regulations: The Federal rules restrict any use of the information to criminally investigate or prosecute any alcohol or drug abuse patient.[facility] NorthIn the event this information is protected by the Federal Confidentiality of Alcohol and Drug Abuse Patient Records regulations: The Federal rules restrict any use of the information to criminally investigate or prosecute any alcohol or drug abuse patient.[facility] NorthIn the event this information is protected by the Federal Confidentiality of Alcohol and Drug Abuse Patient Records regulations: The Federal rules restrict any use of the information to criminally investigate or prosecute any alcohol or drug abuse patient.[facility] NorthIn the event this information is protected by the Federal Confidentiality of Alcohol and Drug Abuse Patient Records regulations: The Federal rules restrict any use of the information to criminally investigate or prosecute any alcohol or drug abuse patient.[facility] NorthIn the event this information is protected by the Federal Confidentiality of Alcohol and Drug Abuse Patient Records regulations: The Federal rules restrict any use of the information to criminally investigate or prosecute any alcohol or drug abuse patient.[facility] NorthIn the event this information is protected by the Federal Confidentiality of Alcohol and Drug Abuse Patient Records regulations: The Federal rules restrict any use of the information to criminally investigate or prosecute any alcohol or drug abuse patient.[facility] NorthIn the event this information is protected by the Federal Confidentiality of Alcohol and Drug Abuse Patient Records regulations: The Federal rules restrict any use of the information to criminally investigate or prosecute any alcohol or drug abuse patient.[facility] NorthIn the event this information is protected by the Federal Confidentiality of Alcohol and Drug Abuse Patient Records regulations: The Federal rules restrict any use of the information to criminally investigate or prosecute any alcohol or drug abuse patient.[facility] NorthIn the event this information is protected by the Federal Confidentiality of Alcohol and Drug Abuse Patient Records regulations: The Federal rules restrict any use of the information to criminally investigate or prosecute any alcohol or drug abuse patient.[facility] Care Teams (unrecognized sec tion and content) Print Line Supervisor Relationship Specialty Start Date End Date Jacinta Rivas MD [address] [place], [place] [id number] PCP - General Internal Medicine 02/03/19 Dena Lechuga RN Specialty Button Tufting Machine Operator Oncology 04/24/17 Jesus Carter MD, [address] [place], [place] [address] Physician Radiation Oncology 04/24/17 Lisa Malhotra RN [address] [place] [address] Research Nurse Hematology/Oncology 05/23/18 Taz Howard MD [address] [address] Home Care Physician Orthopedics 03/20/19 Taz Howard MD [address] [address] Referring Orthopedics 03/20/19 Lizeth Acosta, PT [address] [place] [address] Sterile Technician Acute Care 03/21/19 Print Line Supervisor Relationship Specialty Start Date End Date Jacinta Rivas MD [address] [place] [address] PCP - General Internal Medicine 02/03/19 Dena Lechuga RN Specialty Button Tufting Machine Operator Oncology 04/24/17 Jesus Carter MD, [address] [place] [address] Physician Radiation Oncology 04/24/17 Lisa Malhotra RN [address] [place] [address] Research Nurse Hematology/Oncology 05/23/18 Taz Howard MD [address] [address] Home Care Physician Orthopedics 03/20/19 Taz Howard MD [address] [address] Referring Orthopedics 03/20/19 Lizeth Acosta, PT [address] [place] [address] Sterile Technician Acute Care 03/21/19 Print Line Supervisor Relationship Specialty Start Date End Date Jacinta Rivas MD [address] [facility] [place] [address] PCP - General Internal Medicine 02/03/19 Dena Lechuga RN Specialty Button Tufting Machine Operator Oncology 04/24/17 Jesus Carter MD, [address] [address] Physician Radiation Oncology 04/24/17 Lisa Malhotra, FE [address] [place] [address] Research Nurse Hematology/Oncology 05/23/18 Taz Howard MD [address] [address] Home Care Physician Orthopedics 03/20/19 Taz Howard MD [address] [address] Referring Orthopedics 03/20/19 Lizeth Acosta, PT [address] [place] [address] Sterile Technician Acute Care 03/21/19 Print Line Supervisor Relationship Specialty Start Date End Date Jacinta Rivas MD [address] [facility] [place] [address] PCP - General Internal Medicine 02/03/19 Dena Lechuga RN Specialty Button Tufting Machine Operator Oncology 04/24/17 Jesus Carter MD, [address] [place] [address] Physician Radiation Oncology 04/24/17 Lisa Malhotra, FE [address] [place] [place] [address] Research Nurse Hematology/Oncology 05/23/18 Taz Howard MD [address] [address] Home Care Physician Orthopedics 03/20/19 Taz Howard MD [address] [place] [address] Referring Orthopedics 03/20/19 Lizeth Acosta, PT [address] [place], [place] [id number] Sterile Technician Acute Care 03/21/19 Print Line Supervisor Relationship Specialty Start Date End Date Jacinta Rivas MD [address] [place] [address] PCP - General Internal Medicine 02/03/19 Dena Lechuga RN Specialty Button Tufting Machine Operator Oncology 04/24/17 Jesus Carter MD, MD [address] [place] [address] Physician Radiation Oncology 04/24/17 Lisa Malhotra, FE [address] [place] [address] Research Nurse Hematology/Oncology 05/23/18 Taz Howard MD [address] [address] Home Care Physician Orthopedics 03/20/19 Taz Howard MD [address] [address] Referring Orthopedics 03/20/19 Lizeth Acosta, PT [address] [place] [address] Sterile Technician Acute Care 03/21/19 Print Line Supervisor Relationship Specialty Start Date End Date Jacinta Rivas MD [address] [facility] [place] [address] PCP - General Internal Medicine 02/03/19 Dena Lechuga RN Specialty Button Tufting Machine Operator Oncology 04/24/17 Jesus Carter MD, [address] [facility] [place] [address] Physician Radiation Oncology 04/24/17 Lisa Malhotra, FE [address] [facility] [place] [address] Research Nurse Hematology/Oncology 05/23/18 Taz Howard MD [address] [address] Home Care Physician Orthopedics 03/20/19 Taz Howard MD [address] [address] Referring Orthopedics 03/20/19 Lizeth Acosta, PT [address] [place], [place] [id number] Sterile Technician Acute Care 03/21/19 Print Line Supervisor Relationship Specialty Start Date End Date Jacinta Rivas MD [address] [facility] [place] [address] PCP - General Internal Medicine 02/03/19 Dena Lechuga RN Specialty Button Tufting Machine Operator Oncology 04/24/17 Jesus Carter MD, [address] [place] [address] Physician Radiation Oncology 04/24/17 Lisa Malhotra, FE [address] [facility] [place] [address] Research Nurse Hematology/Oncology 05/23/18 Taz Howard MD [address] [address] Home Care Physician Orthopedics 03/20/19 Taz Howard MD [address] [address] Referring Orthopedics 03/20/19 Lizeth Acosta, PT [address] [place] [address] Sterile Technician Acute Care 03/21/19 Print Line Supervisor Relationship Specialty Start Date End Date Jacinta Rivas MD [address] [place] [address] PCP - General Internal Medicine 02/03/19 Dena Lechuga RN Specialty Button Tufting Machine Operator Oncology 04/24/17 Jesus Carter MD, [address] [place] [address] Physician Radiation Oncology 04/24/17 Lisa Malhotra, FE [address] [place] [address] Research Nurse Hematology/Oncology 05/23/18 Taz Howard MD [address] [address] Home Care Physician Orthopedics 03/20/19 Taz Howard MD [address] [address] Referring Orthopedics 03/20/19 Lizeth Acosta, PT [address] [place] [address] Sterile Technician Acute Care 03/21/19 Print Line Supervisor Relationship Specialty Start Date End Date Jacinta Rivas MD [address] [place] [address] PCP - General Internal Medicine 02/03/19 Dena Lechuga RN Specialty Button Tufting Machine Operator Oncology 04/24/17 Jesus Carter MD, [address] [place] [address] Physician Radiation Oncology 04/24/17 Lisa Malhotra RN [address] [facility] [address] Research Nurse Hematology/Oncology 05/23/18 Taz Howard MD [address] [address] Home Care Provider Orthopedics 03/20/19 Taz Howard MD [address] [address] Referring Orthopedics 03/20/19 Lizeth Acosta, PT [address] [place] [address] Sterile Technician Acute Care 03/21/19 Print Line Supervisor Relationship Specialty Start Date End Date Jacinta Rivas MD [address] [place] [address] PCP - General Internal Medicine 02/03/19 Dena Lechuga RN Specialty Button Tufting Machine Operator Oncology 04/24/17 Jesus Carter MD, [address] [place] [address] Physician Radiation Oncology 04/24/17 Lisa Malhotra RN [address] [place] [address] Research Nurse Hematology/Oncology 05/23/18 Taz Howard MD [address] [address] Home Care Provider Orthopedics 03/20/19 Taz Howard MD [address] [address] Referring Orthopedics 03/20/19 Lizeth Acosta, PT [address] [place] [address] Sterile Technician Acute Care 03/21/19 Print Line Supervisor Relationship Specialty Start Date End Date Jacinta Rivas MD [address] [place] [address] PCP - General Internal Medicine 02/03/19 Dena Lechuga, RN Specialty Button Tufting Machine Operator Oncology 04/24/17 Jesus Carter MD, MD [address] [place] [address] Physician Radiation Oncology 04/24/17 Taz Howard MD [address] [address] Home Care Provider Orthopedics 03/20/19 Taz Howard MD [address] [address] Referring Orthopedics 03/20/19 Lizeth Acosta, PT [address] [place] [address] Sterile Technician Acute Care 03/21/19 Print Line Supervisor Relationship Specialty Start Date End Date Jacinta Rivas MD [address] [place] [address] PCP - General Internal Medicine 02/03/19 Dena Lechuga RN Specialty Button Tufting Machine Operator Oncology 04/24/17 Jesus Carter MD, MD [address] [place] [address] Physician Radiation Oncology 04/24/17 Taz Howard MD [address] [address] Home Care Provider Orthopedics 03/20/19 Taz Howard MD [address] [address] Referring Orthopedics 03/20/19 Lizeth Acosta, PT [address] [place] [address] Sterile Technician Acute Care 03/21/19 Print Line Supervisor Relationship Specialty Start Date End Date Jacinta Rivas MD [address] [place] [address] PCP - General Internal Medicine 02/03/19 Dena Lechuga RN Specialty Button Tufting Machine Operator Oncology 04/24/17 Jesus Carter MD, [address] [place] [address] Physician Radiation Oncology 04/24/17 Taz Howard MD [address] [address] Home Care Provider Orthopedics 03/20/19 Taz Howard MD [address] [address] Referring Orthopedics 03/20/19 Lizeth Acosta, PT [address] [place] [address] Sterile Technician Acute Care 03/21/19 Print Line Supervisor Relationship Specialty Start Date End Date Jacinta Rivas MD [address] [place] [address] PCP - General Internal Medicine 02/03/19 Dena Lechuga RN Specialty Button Tufting Machine Operator Oncology 04/24/17 Jesus Carter MD, [address] [place] [address] Physician Radiation Oncology 04/24/17 Taz Howard MD [address] [address] Home Care Provider Orthopedics 03/20/19 Taz Howard MD [address] [address] Referring Orthopedics 03/20/19 Lizeth Acosta, PT [address] [place] [address] Sterile Technician Acute Care 03/21/19 Print Line Supervisor Relationship Specialty Start Date End Date Jacinta Rivas MD [address] [place] [address] PCP - General Internal Medicine 02/03/19 Dena Lechuga, RN Specialty Button Tufting Machine Operator Oncology 04/24/17 Jesus Carter MD, [address] [place] [address] Physician Radiation Oncology 04/24/17 Taz Howard MD [address] [address] Home Care Provider Orthopedics 03/20/19 Taz Howard MD [address] [address] Referring Orthopedics 03/20/19 Lizeth Acosta, PT [address] [place], [place] [id number] Sterile Technician Acute Care 03/21/19 Print Line Supervisor Relationship Specialty Start Date End Date Jacinta Rivas MD [address] [place], [place] [address] [phone] PCP - General Internal Medicine 02/03/19 Dena Lechuga, RN Specialty Button Tufting Machine Operator Oncology 04/24/17 Jesus Carter MD, [address] [place], [place] [phone] Physician Radiation Oncology 04/24/17 Taz Howard MD [address] [address] Home Care Provider Orthopedics 03/20/19 Taz Howard MD [address] [address] Referring Orthopedics 03/20/19 Lizeth Acosta, PT [address] [place], [place] [address] Sterile Technician Acute Care 03/21/19 Print Line Supervisor Relationship Specialty Start Date End Date Jacinta Rivas MD [address] [place] [address] PCP - General Internal Medicine 02/03/19 Dena Lechuga, RN Specialty Button Tufting Machine Operator Oncology 04/24/17 Jesus Carter MD, [address] [place] [address] Physician Radiation Oncology 04/24/17 Taz Howard MD [address] [address] Home Care Provider Orthopedics 03/20/19 Taz Howard MD [address] [address] Referring Orthopedics 03/20/19 Lizeth Acosta, PT [address] [place], [place] [id number] Sterile Technician Acute Care 03/21/19 Print Line Supervisor Relationship Specialty Start Date End Date Jacinta Rivas MD [address] [place], [place] [address] PCP - General Internal Medicine 02/03/19 Dena Lechuga, RN Specialty Button Tufting Machine Operator Oncology 04/24/17 Jesus Carter MD, [address] [place] [address] Physician Radiation Oncology 04/24/17 Taz Howard MD [address] [address] Home Care Provider Orthopedics 03/20/19 Taz Howard MD [address] [address] Referring Orthopedics 03/20/19 Lizeth Acosta, PT [address] [place] [address] Sterile Technician Acute Care 03/21/19 Print Line Supervisor Relationship Specialty Start Date End Date Jacinta Rivas MD [address] [place] [address] PCP - General Internal Medicine 02/03/19 Dena Lechuga, RN Specialty Button Tufting Machine Operator Oncology 04/24/17 Jesus Carter MD, [address] [place] [address] Physician Radiation Oncology 04/24/17 Taz Howard MD [address] [address] Home Care Provider Orthopedics 03/20/19 Taz Howard MD [address] [address] Referring Orthopedics 03/20/19 Lizeth Acosta, PT [address] [place] [address] Sterile Technician Acute Care 03/21/19 Print Line Supervisor Relationship Specialty Start Date End Date Jacinta Rivas MD [address] [place] [address] PCP - General Internal Medicine 02/03/19 Dena Lechuga, RN Specialty Button Tufting Machine Operator Oncology 04/24/17 Jesus Carter MD, MD [address] [facility] [address] Physician Radiation Oncology 04/24/17 Taz Howard MD [address] [address] Home Care Provider Orthopedics 03/20/19 Taz Howard MD [address] [address] Referring Orthopedics 03/20/19 Lizeth Acosta, PT [address] [place] [address] Sterile Technician Acute Care 03/21/19 Eliz Bingham MD [facility]00 [facility] [address] [place] [address] General Surgery 07/04/22 Ney Hart 128 E [facility] [address] [address] Gastroenterology 07/04/22 Print Line Supervisor Relationship Specialty Start Date End Date Jacinta Rivas MD [address] [place], [place] [id number] PCP - General Internal Medicine 02/03/19 Dena Lechuga, RN Specialty Button Tufting Machine Operator Oncology 04/24/17 Jesus Carter MD, [address] [facility] [address] Physician Radiation Oncology 04/24/17 Taz Howard MD [address] [address] Home Care Provider Orthopedics 03/20/19 Taz Howard MD [address] [address] Referring Orthopedics 03/20/19 Lizeth Acosta, PT [address] [place] [address] Sterile Technician Acute Care 03/21/19 Eliz Bingham MD [address] [place] [address] [id number] General Surgery 07/04/22 Ney Hart [address] [id number] Gastroenterology 07/04/22 Print Line Supervisor Relationship Specialty Start Date End Date Jacinta Rivas MD [address]40 [place] [address] PCP - General Internal Medicine 02/03/19 Dena Lechuga, RN Specialty Button Tufting Machine Operator Oncology 04/24/17 Jesus Carter MD, 7[address] E [facility] [place], [place] [id number] Physician Radiation Oncology 04/24/17 Taz Howard MD [address] [address] Home Care Provider Orthopedics 03/20/19 Taz Howard MD [address] [address] Referring Orthopedics 03/20/19 Lizeth Acosta, PT [address] [place] [address] Sterile Technician Acute Care 03/21/19 Eliz Bingham MD [address] [place] [address] General Surgery 07/04/22 Ney Hart [facility] [address] [place] [address] Gastroenterology 07/04/22 Print Line Supervisor Relationship Specialty Start Date End Date Jacinta Rivas MD [address] [place] [address] PCP - General Internal Medicine 02/03/19 Dena Lechuga, RN Specialty Button Tufting Machine Operator Oncology 04/24/17 Jesus Carter MD, MD [address] [place] [address] Physician Radiation Oncology 04/24/17 Taz Howard MD [address] [address] Home Care Provider Orthopedics 03/20/19 Taz Howard MD [address] [address] Referring Orthopedics 03/20/19 Lizeth Acosta, PT [address] [place] [address] Sterile Technician Acute Care 03/21/19 Eliz Bingham MD [address] [address] [place] [address] General Surgery 07/04/22 Ney Hart [facility] [address] [place] [address] Gastroenterology 07/04/22 Print Line Supervisor Relationship Specialty Start Date End Date Jacinta Rivas MD [address] [place] [address] PCP - General Internal Medicine 02/03/19 Dena Lechuga, RN Specialty Button Tufting Machine Operator Oncology 04/24/17 Jesus Carter MD, 721 [facility] [place] [address] Physician Radiation Oncology 04/24/17 Taz Howard MD [address] [address] Home Care Provider Orthopedics 03/20/19 Taz Howard MD [address] [address] Referring Orthopedics 03/20/19 Lizeth Acosta, PT [address] [place] [address] Sterile Technician Acute Care 03/21/19 Eliz Bingham MD [address] [facility] [address] [place] [address] General Surgery 07/04/22 Ney Hart [address] [address] Gastroenterology 07/04/22 Print Line Supervisor Relationship Specialty Start Date End Date Jacinta Rivas MD [address] [place] [address] PCP - General Internal Medicine 02/03/19 Dena Lechuga, RN Specialty Button Tufting Machine Operator Oncology 04/24/17 Jesus Carter MD, 7[address] [facility] [place], [place] [id number] Physician Radiation Oncology 04/24/17 Taz Howard MD [address] 99429256 Home Care Provider Orthopedics 03/20/19 Taz Howard MD [address] [address] Referring Orthopedics 03/20/19 Lizeth Acosta, PT [address] [place] [address] Sterile Technician Acute Care 03/21/19 Eliz Bingham MD [address] [place] [address] General Surgery 07/04/22 Ney Hart E PATY [address] [address] Gastroenterology 07/04/22 Print Line Supervisor Relationship Specialty Start Date End Date Jacinta Rivas MD [address] [place] [address] PCP - General Internal Medicine 02/03/19 Dena Lechuga, FE Specialty Button Tufting Machine Operator Oncology 04/24/17 Jesus Carter MD, 7[address] [facility] [place], [place] [id number] Physician Radiation Oncology 04/24/17 Taz Howard MD [address] [address] Home Care Provider Orthopedics 03/20/19 Taz Howard MD [address] [address] Referring Orthopedics 03/20/19 Lizeth Acosta, PT [address] [place] [address] Sterile Technician Acute Care 03/21/19 Eliz Bingham MD [address] [place] [address] General Surgery 07/04/22 Ney Hart 128 E [facility] [address] [place] [address] Gastroenterology 07/04/22 Print Line Supervisor Relationship Specialty Start Date End Date Jacinta Rivas MD [address] [place] [address] PCP - General Internal Medicine 02/03/19 Dena Lechuga RN Specialty Button Tufting Machine Operator Oncology 04/24/17 Jesus Carter MD, MD [address] [place] [address] Physician Radiation Oncology 04/24/17 Taz Howard MD [address] [address] Home Care Provider Orthopedics 03/20/19 Taz Howard MD [address] [address] Referring Orthopedics 03/20/19 Lizeth Acosta, PT [address] [place] [address] Sterile Technician Acute Care 03/21/19 Eliz Bingham MD 9500 [facility] [address] [place] [address] [id number] General Surgery 07/04/22 Ney Hart 128 [address] [facility] [address] [place] [address] Gastroenterology 07/04/22 Print Line Supervisor Relationship Specialty Start Date End Date Jacinta Rivas MD [address] [place] [address] PCP - General Internal Medicine 02/03/19 Dena Lechuga RN Specialty Button Tufting Machine Operator Oncology 04/24/17 Jesus Carter MD, MD [address] [place] [address] Physician Radiation Oncology 04/24/17 Taz Howard MD [address] [address] Home Care Provider Orthopedics 03/20/19 Taz Howard MD [address] [address] Referring Orthopedics 03/20/19 Lizeth Acosta, PT [address] [place] [address] Sterile Technician Acute Care 03/21/19 Eliz Bingham MD [address] [place] [address] [phone] General Surgery 07/04/22 Ney Hart [address] [address] Gastroenterology 07/04/22 Print Line Supervisor Relationship Specialty Start Date End Date Jacinta Rivas MD [address] [place] [address] PCP - General Internal Medicine 02/03/19 Dena Lechuga, RN Specialty Button Tufting Machine Operator Oncology 04/24/17 Jesus Carter MD, [address] [place] [address] Physician Radiation Oncology 04/24/17 Taz Howard MD [address] [address] Home Care Provider Orthopedics 03/20/19 Taz Howard MD [address] [address] Referring Orthopedics 03/20/19 Lizeth Acosta, PT [address] [place] [address] Sterile Technician Acute Care 03/21/19 Eliz Bingham MD [address] [place] [address] General Surgery 07/04/22 Ney Hart E [facility] [address] [place] [address] Gastroenterology 07/04/22 Print Line Supervisor Relationship Specialty Start Date End Date Jacinta Rivas MD [address] [place] [address] PCP - General Internal Medicine 02/03/19 Dena Lechuga RN Specialty Button Tufting Machine Operator Oncology 04/24/17 Jesus Carter MD, MD [address] [place] [address] Physician Radiation Oncology 04/24/17 Taz Howard MD [address] [address] Home Care Provider Orthopedics 03/20/19 Taz Howard MD [address] [address] Referring Orthopedics 03/20/19 Lizeth Acosta, PT [address] [place] [address] Sterile Technician Acute Care 03/21/19 Eliz Bingham MD [address] [place] [address] General Surgery 07/04/22 Ney Hart E [facility] [address] [place] [address] Gastroenterology 07/04/22 Print Line Supervisor Relationship Specialty Start Date End Date Jacinta Rivas MD [address] [place] [address] PCP - General Internal Medicine 02/03/19 Dena Lechuga RN Specialty Button Tufting Machine Operator Oncology 04/24/17 Jesus Carter MD, [address] [place] [address] Physician Radiation Oncology 04/24/17 Taz Howard MD [address] [address] Home Care Provider Orthopedics 03/20/19 Taz Howard MD [address] [place] [address] Referring Orthopedics 03/20/19 Lizeth Acosta, PT [address] [place] [address] Sterile Technician Acute Care 03/21/19 Eliz Bingham MD [address] [place] [address] General Surgery 07/04/22 Ney Hart [address] [address] Gastroenterology 07/04/22 Print Line Supervisor Relationship Specialty Start Date End Date Jacinta Rivas MD [address] [place] [address] PCP - General Internal Medicine 02/03/19 Dena Lechuga, RN Specialty Button Tufting Machine Operator Oncology 04/24/17 Jesus Carter MD, [address] [place] [address] Physician Radiation Oncology 04/24/17 Taz Howard MD [address] 52749256 Home Care Provider Orthopedics 03/20/19 Taz Howard MD [address] [address] Referring Orthopedics 03/20/19 Lizeth Acosta, PT [address] [place] [address] Sterile Technician Acute Care 03/21/19 Eliz Bingham MD [address] [place] [address] General Surgery 07/04/22 Ney Hart 128 [facility] [address] [place] [address] Gastroenterology 07/04/22 Print Line Supervisor Relationship Specialty Start Date End Date Jacinta Rivas MD [address] [place] [address] PCP - General Internal Medicine 02/03/19 Dena Lechuga, RN Specialty Button Tufting Machine Operator Oncology 04/24/17 Jesus Carter MD, 721 [place] [address] Physician Radiation Oncology 04/24/17 Taz Howard MD [address] [address] Home Care Provider Orthopedics 03/20/19 Taz Howard MD [address] [address] Referring Orthopedics 03/20/19 Lizeth Acosta, PT [address] [place] [address] Sterile Technician Acute Care 03/21/19 Eliz Bingham MD [address] [place] [address] General Surgery 07/04/22 Ney Hart 128 [address] [facility] [address] [place] [address] Gastroenterology 07/04/22 Print Line Supervisor Relationship Specialty Start Date End Date Jacinta Rivas MD [address] [place], [place] 719141 PCP - General Internal Medicine 02/03/19 Dena Lechuga, RN Specialty Button Tufting Machine Operator Oncology 04/24/17 Jesus Carter MD, MD [address] [place] [address] Physician Radiation Oncology 04/24/17 Taz Howard MD [address] [address] Home Care Provider Orthopedics 03/20/19 Taz Howard MD 970 E [facility] [address] [place] [address] Referring Orthopedics 03/20/19 Lizeth Acosta, PT [address] [place], [place] 1589031 Sterile Technician Acute Care 03/21/19 Eliz Bingham MD 9500 [facility] [address] [place] [address] General Surgery 07/04/22 Ney Hart 128 [address] [facility] [address] [place] [address] Gastroenterology 07/04/22 Print Line Supervisor Relationship Specialty Start Date End Date Jacinta Rivas MD [address] [place], [place] 128411 PCP - General Internal Medicine 02/03/19 Dena Lechuga, RN Specialty Button Tufting Machine Operator Oncology 04/24/17 Jesus Carter MD, MD [address] [place] [address] Physician Radiation Oncology 04/24/17 Taz Howard MD [address] [address] Home Care Provider Orthopedics 03/20/19 Taz Howard MD [address] [address] Referring Orthopedics 03/20/19 Lizeth Acosta, PT [address] [place] [address] Sterile Technician Acute Care 03/21/19 Eliz Bingham MD 9500 [facility] [address] [place] [address] [phone] General Surgery 07/04/22 Ney Hart F [address] [address] Gastroenterology 07/04/22 Print Line Supervisor Relationship Specialty Start Date End Date Jacinta Rivas MD [address] [place] [address] PCP - General Internal Medicine 02/03/19 Dena Lechuga, RN Specialty Button Tufting Machine Operator Oncology 04/24/17 Jesus Carter MD, [address] [place] [address] Physician Radiation Oncology 04/24/17 Taz Howard MD [address] [address] Home Care Provider Orthopedics 03/20/19 Taz Howard MD [address] [address] Referring Orthopedics 03/20/19 Lizeth Acosta, PT [address] [place] [address] Sterile Technician Acute Care 03/21/19 Eliz Bingham MD [address] [place] [address] General Surgery 07/04/22 Ney Hart E [facility] [address] [place], [place] 808831 Gastroenterology 07/04/22 Print Line Supervisor Relationship Specialty Start Date End Date Jacinta Rivas MD [address] [place], [place] 631871 PCP - General Internal Medicine 02/03/19 Dena Lechuga RN Specialty Button Tufting Machine Operator Oncology 04/24/17 Jesus Carter MD, MD [address] [place] [address] Physician Radiation Oncology 04/24/17 Taz Howard MD [address] [address] Home Care Provider Orthopedics 03/20/19 Taz Howard MD [address] [address] Referring Orthopedics 03/20/19 Lizeth Acosta, PT [address] [place] [address] Sterile Technician Acute Care 03/21/19 Eliz Bingham MD [address] [place] [address] General Surgery 07/04/22 Ney Hart E [facility] [address] [place] [address] Gastroenterology 07/04/22 Print Line Supervisor Relationship Specialty Start Date End Date Jacinta Rivas MD [address] [place], [place] 855721 PCP - General Internal Medicine 02/03/19 Dena Lechuga RN Specialty Button Tufting Machine Operator Oncology 04/24/17 Jesus Carter MD, MD [address] [place], [place] 996061 Physician Radiation Oncology 04/24/17 Taz Howard MD [address] [address] Home Care Provider Orthopedics 03/20/19 Taz Howard MD [address] [address] Referring Orthopedics 03/20/19 Lizeth Acosta, PT [address] [place] [address] Sterile Technician Acute Care 03/21/19 Eliz Bingham MD [address] [facility] [address] [place] [address] [id number] General Surgery 07/04/22 Ney Hart [address] [address] Gastroenterology 07/04/22 Print Line Supervisor Relationship Specialty Start Date End Date Jacinta Rivas MD [address] [place], [place] 209731 PCP - General Internal Medicine 02/03/19 Dena Lechuga, RN Specialty Button Tufting Machine Operator Oncology 04/24/17 Jesus Carter MD, MD [address] [place], [place] 856941 Physician Radiation Oncology 04/24/17 Taz Howard MD [address] [address] Home Care Provider Orthopedics 03/20/19 Taz Howard MD [address] [address] Referring Orthopedics 03/20/19 Lizeth Acosta, PT [address] [place] [address] Sterile Technician Acute Care 03/21/19 Eliz Bingham MD [address] [place] [address] General Surgery 07/04/22 Ney Hart [address] [address] Gastroenterology 07/04/22 Print Line Supervisor Relationship Specialty Start Date End Date Jacinta Rivas MD [address] [place] [address] PCP - General Internal Medicine 02/03/19 Dena Lechuga, RN Specialty Button Tufting Machine Operator Oncology 04/24/17 Jesus Carter MD, [address] [place] [address] Physician Radiation Oncology 04/24/17 Taz Howard MD [address] [address] Home Care Provider Orthopedics 03/20/19 Taz Howard MD [address] [address] Referring Orthopedics 03/20/19 Lizeth Acosta, PT [address] [place] [address] Sterile Technician Acute Care 03/21/19 Eliz Bingham MD [address] [place] [address] General Surgery 07/04/22 Ney Hart 128 E [facility] [address] [place] [address] Gastroenterology 07/04/22 Print Line Supervisor Relationship Specialty Start Date End Date Jacinta Rivas MD [address] [place] [address] PCP - General Internal Medicine 02/03/19 Dena Lechuga RN Specialty Button Tufting Machine Operator Oncology 04/24/17 Jesus Carter MD, MD [address] [place] [address] Physician Radiation Oncology 04/24/17 Taz Howard MD [address] [address] Home Care Provider Orthopedics 03/20/19 Taz Howard MD [address] [address] Referring Orthopedics 03/20/19 Lizeth Acosta, PT [address] [place] [address] Sterile Technician Acute Care 03/21/19 Eliz Bingham MD [address] [place] [id number] General Surgery 07/04/22 Ney Hart [address] [facility] [address] [address] Gastroenterology 07/04/22 Print Line Supervisor Relationship Specialty Start Date End Date Jacinta Rivas MD [address] [place], [place] 872281 PCP - General Internal Medicine 02/03/19 Dena Lechuga, RN Specialty Button Tufting Machine Operator Oncology 04/24/17 Jesus Carter MD, MD [address] [place] [address] Physician Radiation Oncology 04/24/17 Taz Howard MD [address] [address] Home Care Provider Orthopedics 03/20/19 Taz Howard MD [address] [address] Referring Orthopedics 03/20/19 Lizeth Acosta, PT [address] [place], [place] 5074131 Sterile Technician Acute Care 03/21/19 Eliz Bingham MD [address] [place] [address] General Surgery 07/04/22 Ney Hart [address] [address] [address] Gastroenterology 07/04/22 Print Line Supervisor Relationship Specialty Start Date End Date Jacinta Rivas MD [address] [place] [address] PCP - General Internal Medicine 02/03/19 Dena Lechuga RN Specialty Button Tufting Machine Operator Oncology 04/24/17 Jesus Carter MD, [address] [place] [address] Physician Radiation Oncology 04/24/17 Taz Howard MD 970 E [facility] [address] [place] [address] Home Care Provider Orthopedics 03/20/19 Taz Howard MD 970 E [facility] [address] [place] [address] Referring Orthopedics 03/20/19 Eliz Bingham MD [address] [place] [address] General Surgery 07/04/22 Ney Hart [address] [address] Gastroenterology 07/04/22 Print Line Supervisor Relationship Specialty Start Date End Date Jacinta Rivas MD [address] [place] [address] PCP - General Internal Medicine 02/03/19 Dena Lechuga, FE Specialty Button Tufting Machine Operator Oncology 04/24/17 Jesus Carter MD, [address] [place] [address] Physician Radiation Oncology 04/24/17 Taz Howard MD [address] [address] Home Care Provider Orthopedics 03/20/19 Taz Howard MD [address] [address] Referring Orthopedics 03/20/19 Eliz Bingham MD [address] [place] [address] General Surgery 07/04/22 Ney Hart [address] [address] Gastroenterology 07/04/22 Print Line Supervisor Relationship Specialty Start Date End Date Jacinta Rivas MD [address] [place] [address] PCP - General Internal Medicine 02/03/19 Dena Lechuga, RN Specialty Button Tufting Machine Operator Oncology 04/24/17 Jesus Carter MD, [address] [place] [address] Physician Radiation Oncology 04/24/17 Taz Howard MD [address] [address] Home Care Provider Orthopedics 03/20/19 Taz Howard MD [address] [address] Referring Orthopedics 03/20/19 Eliz Bingham MD [address] [place] [address] General Surgery 07/04/22 Ney Hart 128 E [facility] [address] [place] [address] Gastroenterology 07/04/22 Print Line Supervisor Relationship Specialty Start Date End Date Jacinta Rivas MD [address] [place], [place] 038131 PCP - General Internal Medicine 02/03/19 Dena Lechuga RN Specialty Button Tufting Machine Operator Oncology 04/24/17 Jesus Carter MD, [address] [place] [address] Physician Radiation Oncology 04/24/17 Taz Howard MD [address] [address] Home Care Provider Orthopedics 03/20/19 Taz Howard MD [address] [address] Referring Orthopedics 03/20/19 Eliz Bingham MD [address] [address] General Surgery 07/04/22 Ney Hart 128 E [facility] [address] [place] [address] Gastroenterology 07/04/22 Print Line Supervisor Relationship Specialty Start Date End Date Jacinta Rivas MD [address] [place] [address] PCP - General Internal Medicine 02/03/19 Doup, Dena, RN Specialty Button Tufting Machine Operator Oncology 04/24/17 Jesus Carter MD, MD [address] [place] [address] Physician Radiation Oncology 04/24/17 Taz Howard MD [address] [address] Home Care Provider Orthopedics 03/20/19 Taz Howard MD [address] [address] Referring Orthopedics 03/20/19 Eliz Bingham MD 9500 [facility] [address] [place] [address] General Surgery 07/04/22 Ney Hart [address] [address] [address] Gastroenterology 07/04/22 Print Line Supervisor Relationship Specialty Start Date End Date Jacinta Rivas MD [address] [place] [address] PCP - General Internal Medicine 02/03/19 Dena Lechuga RN Specialty Button Tufting Machine Operator Oncology 04/24/17 Jesus Carter MD, MD [address] [place] [address] Physician Radiation Oncology 04/24/17 Taz Howard MD [address] [address] Home Care Provider Orthopedics 03/20/19 Taz Howard MD [address] [address] Referring Orthopedics 03/20/19 Eliz Bingham MD [address] [place] [address] General Surgery 07/04/22 Ney Hart 128 E [facility]ENG[facility] [address] [place] [address] Gastroenterology 07/04/22 Print Line Supervisor Relationship Specialty Start Date End Date Jacinta Rivas MD [address] [place] [address] PCP - General Internal Medicine 02/03/19 Dena Lechuga RN Specialty Button Tufting Machine Operator Oncology 04/24/17 Jesus Carter MD, [address] [place] [address] Physician Radiation Oncology 04/24/17 Taz Howard MD [address] [address] Home Care Provider Orthopedics 03/20/19 Taz Howard MD [address] [address] Referring Orthopedics 03/20/19 Eliz Bingham MD [address] [place] [address] General Surgery 07/04/22 Ney Hart 128 [address] [facility] [facility] [address] [place] [address] Gastroenterology 07/04/22 Print Line Supervisor Relationship Specialty Start Date End Date Jacinta Rivas MD [address] [place], [place] 724531 PCP - General Internal Medicine 02/03/19 Dena Lechuga RN Specialty Button Tufting Machine Operator Oncology 04/24/17 Jesus Carter MD, MD [address] [place] [address] Physician Radiation Oncology 04/24/17 Taz Howard MD [address] [address] Home Care Provider Orthopedics 03/20/19 Taz Howard MD [address] [address] Referring Orthopedics 03/20/19 Eliz Bingham MD 9500 [facility] [address] [place] [address] General Surgery 07/04/22 N[address] aHrt [address] 386601 Gastroenterology 07/04/22 Print Line Supervisor Relationship Specialty Start Date End Date Jacinta Rivas MD [address] [place], [place] 310671 PCP - General Internal Medicine 02/03/19 Dena Lechuga RN Specialty Button Tufting Machine Operator Oncology 04/24/17 Jesus Carter MD, 721 E [facility] [place], [place] 289[address] Physician Radiation Oncology 04/24/17 Taz Howard MD [address] [address] Home Care Provider Orthopedics 03/20/19 Taz Howard MD [address] [address] Referring Orthopedics 03/20/19 Eliz Bingham MD [address] [address] General Surgery 07/04/22 Ney Hart 128 E [facility] [address] [address] Gastroenterology 07/04/22 Print Line Supervisor Relationship Specialty Start Date End Date Jacinta Rivas MD [address] [place] [address] PCP - General Internal Medicine 02/03/19 Dena Lechuga, RN Specialty Button Tufting Machine Operator Oncology 04/24/17 Jesus Carter MD, [address] [place] [address] Physician Radiation Oncology 04/24/17 Taz Howard MD [address] [address] Home Care Provider Orthopedics 03/20/19 Taz Howard MD [address] [address] Referring Orthopedics 03/20/19 Eliz Bingham MD [address] [place] [address] General Surgery 07/04/22 Ney Hart [address] [facility] [address] [place] [address] Gastroenterology 07/04/22 Print Line Supervisor Relationship Specialty Start Date End Date Jacinta Rivas MD [address] [place] [address] PCP - General Internal Medicine 02/03/19 Dena Lechuga RN Specialty Button Tufting Machine Operator Oncology 04/24/17 Jesus Carter MD, [address] [place] [address] Physician Radiation Oncology 04/24/17 Taz Howard MD [address] [address] Home Care Provider Orthopedics 03/20/19 Taz Howard MD [address] [address] Referring Orthopedics 03/20/19 Eliz Bingham MD [address] [place] [address] General Surgery 07/04/22 Ney Hart [address] [facility] [address] [place] [address] Gastroenterology 07/04/22 Print Line Supervisor Relationship Specialty Start Date End Date Jacinta Rivas MD [address] [place] [address] PCP - General Internal Medicine 02/03/19 Dena Lechuga, RN Specialty Button Tufting Machine Operator Oncology 04/24/17 Jesus Carter MD, MD [address] [place] [address] Physician Radiation Oncology 04/24/17 Taz Howard MD [address] [address] Home Care Provider Orthopedics 03/20/19 Taz Howard MD [address] [address] Referring Orthopedics 03/20/19 Eliz Bingham MD [address] [place] [address] General Surgery 07/04/22 Ney Hart MD [address] [address] Gastroenterology 07/04/22 Mino Rosales LISW [address] [place] [address] Legal Document Assistant Hematology/Oncology 01/08/23 Print Line Supervisor Relationship Specialty Start Date End Date Jacinta Rivas MD [address] [place] [address] PCP - General Internal Medicine 02/03/19 Dena Lechuga, RN Specialty Button Tufting Machine Operator Oncology 04/24/17 Jesus Carter MD, [address] [place] [address] Physician Radiation Oncology 04/24/17 Taz Howard MD [address] [address] Home Care Provider Orthopedics 03/20/19 Taz Howard MD [address] [address] Referring Orthopedics 03/20/19 Eliz Bingham MD [address] [place] [address] General Surgery 07/04/22 Ney Hart MD [address] [address] Gastroenterology 07/04/22 Mino Rosales LISW [address] [place] [address] Legal Document Assistant Hematology/Oncology 01/08/23 Print Line Supervisor Relationship Specialty Start Date End Date Jacinta Rivas MD [address] [place] [address] PCP - General Internal Medicine 02/03/19 Dena Lechuga, RN Specialty Button Tufting Machine Operator Oncology 04/24/17 Jesus Carter MD, [address] [place] [address] Physician Radiation Oncology 04/24/17 Taz Howard MD [address] [address] Home Care Provider Orthopedics 03/20/19 Taz Howard MD [address] [address] Referring Orthopedics 03/20/19 Eliz Bingham MD [address] [place] [address] General Surgery 07/04/22 Ney Hart MD [address] [facility] [address] [place] [address] Gastroenterology 07/04/22 Mino Rosales LISW [address] [place] [address] Legal Document Assistant Hematology/Oncology 01/08/23 Print Line Supervisor Relationship Specialty Start Date End Date Jacinta Rivas MD [address] [place] [address] PCP - General Internal Medicine 02/03/19 Dena Lechuga RN Specialty Button Tufting Machine Operator Oncology 04/24/17 Jesus Carter MD, [address] [place] [address] Physician Radiation Oncology 04/24/17 Taz Howard MD [address] [address] Home Care Provider Orthopedics 03/20/19 Taz Howard MD [address] [address] Referring Orthopedics 03/20/19 Eliz Bingham MD [address] [place] [address] General Surgery 07/04/22 Ney Hart MD [address] [place] [facility] [address] [place] [address] Gastroenterology 07/04/22 Mino Rosales LISW [address] [place] [address] Legal Document Assistant Hematology/Oncology 01/08/23 Print Line Supervisor Relationship Specialty Start Date End Date Jacinta Rivas MD [address] [place] [address] PCP - General Internal Medicine 02/03/19 Dena Lechuga RN Specialty Button Tufting Machine Operator Oncology 04/24/17 Jesus Carter MD, [address] [place] [address] Physician Radiation Oncology 04/24/17 Taz Howard MD [address] [address] Home Care Provider Orthopedics 03/20/19 Taz Howard MD [address] [address] Referring Orthopedics 03/20/19 Eliz Bingham MD [address] [place] [address] General Surgery 07/04/22 Ney Hart MD [address] [facility] [address] [place] [address] Gastroenterology 07/04/22 Mino Rosales LISW [address] [place] [address] Legal Document Assistant Hematology/Oncology 01/08/23 Print Line Supervisor Relationship Specialty Start Date End Date Jacinta Rivas MD [address] [place] [address] PCP - General Internal Medicine 02/03/19 Dena Lechuga RN Specialty Button Tufting Machine Operator Oncology 04/24/17 Jesus Carter MD, MD [address] [place] [place] [address] Physician Radiation Oncology 04/24/17 Taz Howard MD [address] [address] Home Care Provider Orthopedics 03/20/19 Taz Howard MD [address] [address] Referring Orthopedics 03/20/19 Eliz Bingham MD [address] [place] [address] General Surgery 07/04/22 Ney Hart MD [address] [address] Gastroenterology 07/04/22 Mino Rosales LISW [address] [place] [address] Legal Document Assistant Hematology/Oncology 01/08/23 Print Line Supervisor Relationship Specialty Start Date End Date Jacinta Rivas MD [address] [place] [address] PCP - General Internal Medicine 02/03/19 Dena Lechuga RN Specialty Button Tufting Machine Operator Oncology 04/24/17 Jesus Carter MD, [address] [place] [address] Physician Radiation Oncology 04/24/17 Taz Howard MD [address] [address] Home Care Provider Orthopedics 03/20/19 Taz Howard MD [address] [address] Referring Orthopedics 03/20/19 Eliz Bingham MD [address] [place] [address] General Surgery 07/04/22 Ney Hart MD [address] [address] Gastroenterology 07/04/22 Mino Rosales LISW [address] [place] [address] Legal Document Assistant Hematology/Oncology 01/08/23 Print Line Supervisor Relationship Specialty Start Date End Date Jacinta Rivas MD [address] [place] [address] PCP - General Internal Medicine 02/03/19 Dena Lechuga, RN Specialty Button Tufting Machine Operator Oncology 04/24/17 Jesus Carter MD, [address] [place] [address] Physician Radiation Oncology 04/24/17 Taz Howard MD [address] [address] Home Care Provider Orthopedics 03/20/19 Taz Howard MD [address] [address] Referring Orthopedics 03/20/19 Eliz Bingham MD [address] [place], [place] [id number] General Surgery 07/04/22 Ney Hart MD [address] [facility] [address] [place] [address] Gastroenterology 07/04/22 Mino Rosales LISW [address] [place] [address] Legal Document Assistant Hematology/Oncology 01/08/23 Print Line Supervisor Relationship Specialty Start Date End Date Jacinta Rivas MD [address] [facility] [place] [address] PCP - General Internal Medicine 02/03/19 Dena Lechuga RN Specialty Button Tufting Machine Operator Oncology 04/24/17 Jesus Carter MD, [address] [place] [address] Physician Radiation Oncology 04/24/17 Taz Howard MD [address] [address] Home Care Provider Orthopedics 03/20/19 Taz Howard MD [address] [address] Referring Orthopedics 03/20/19 Eliz Bingham MD [address] [place] [address] General Surgery 07/04/22 Ney Hart MD [address] [facility] [address] [place] [address] Gastroenterology 07/04/22 Mino Rosales LISW [address] [place] [address] Legal Document Assistant Hematology/Oncology 01/08/23 Print Line Supervisor Relationship Specialty Start Date End Date Jacinta Rivas MD [address] [place] [address] PCP - General Internal Medicine 02/03/19 Dena Lechuga RN Specialty Button Tufting Machine Operator Oncology 04/24/17 Jesus Carter MD, MD [address] [place], [place] [address] Physician Radiation Oncology 04/24/17 Taz Howard MD [address] [address] Home Care Provider Orthopedics 03/20/19 Taz Howard MD [address] [address] Referring Orthopedics 03/20/19 Eliz Bingham MD [address] [place] [address] General Surgery 07/04/22 Ney Hart MD [address] [address] [address] Gastroenterology 07/04/22 Mino Rosales LISW [address] [place] [address] Legal Document Assistant Hematology/Oncology 01/08/23 Print Line Supervisor Relationship Specialty Start Date End Date Jacinta Rivas MD [address] [place] [address] PCP - General Internal Medicine 02/03/19 Dena Lechuga, RN Specialty Button Tufting Machine Operator Oncology 04/24/17 Jesus Carter MD, MD [address] [place] [address] Physician Radiation Oncology 04/24/17 Taz Howard MD [address] [address] Home Care Provider Orthopedics 03/20/19 Taz Howard MD [address] [address] Referring Orthopedics 03/20/19 Eliz Bingham MD [address] [place] [address] General Surgery 07/04/22 Ney Hart MD [address] [address] [address] Gastroenterology 07/04/22 Mino Rosales LISW [address] [place] [address] Legal Document Assistant Hematology/Oncology 01/08/23 Print Line Supervisor Relationship Specialty Start Date End Date Jacinta Rivas MD [address] [place] [address] PCP - General Internal Medicine 02/03/19 Dena Lechuga, RN Specialty Button Tufting Machine Operator Oncology 04/24/17 Jesus Carter MD, MD [address] [place] [address] Physician Radiation Oncology 04/24/17 Taz Howard MD [address] [address] Home Care Provider Orthopedics 03/20/19 Taz Howard MD [address] [address] Referring Orthopedics 03/20/19 Eliz Bingham MD [address] [place] [address] General Surgery 07/04/22 Ney Hart MD [address] [facility] [address] [address] Gastroenterology 07/04/22 Mino Rosales LISW [address] [place] [address] Legal Document Assistant Hematology/Oncology 01/08/23 Print Line Supervisor Relationship Specialty Start Date End Date Jacinta Rivas MD [address] [place] [address] PCP - General Internal Medicine 02/03/19 Dena Lechuga, RN Specialty Button Tufting Machine Operator Oncology 04/24/17 Jesus Carter MD, [address] [place] [address] Physician Radiation Oncology 04/24/17 Taz Howard MD [address] [address] Home Care Provider Orthopedics 03/20/19 Taz Howard MD [address] [address] Referring Orthopedics 03/20/19 Eliz Bingham MD [address] [place], [place] [id number] General Surgery 07/04/22 Ney Hart MD [address] [facility] [address] [place] [address] Gastroenterology 07/04/22 Mino Rosales LISW [address] [place] [address] Legal Document Assistant Hematology/Oncology 01/08/23 Print Line Supervisor Relationship Specialty Start Date End Date Jacinta Rivas MD [address] [place] [address] PCP - General Internal Medicine 02/03/19 Dena Lechuga RN Specialty Button Tufting Machine Operator Oncology 04/24/17 Jesus Carter MD [address] [place] [address] Physician Radiation Oncology 04/24/17 Taz Howard MD [address] [address] Home Care Provider Orthopedics 03/20/19 Tza Howard MD [address] [address] Referring Orthopedics 03/20/19 Eliz Bingham MD [address] [place] [address] General Surgery 07/04/22 Ney Hart MD [address] [facility] [address] [place], [place] [address] Gastroenterology 07/04/22 Mino Rosales LISW [address] [place] [address] Legal Document Assistant Hematology/Oncology 01/08/23 Print Line Supervisor Relationship Specialty Start Date End Date Jacinta Rivas MD [address] [facility] [place] [address] PCP - General Internal Medicine 02/03/19 Dena Lechuga, RN Specialty Button Tufting Machine Operator Oncology 04/24/17 Jesus Carter MD [address] [facility] [place] [address] Physician Radiation Oncology 04/24/17 Taz Howard MD [address] [address] Home Care Provider Orthopedics 03/20/19 Taz Howard MD [address] [address] Referring Orthopedics 03/20/19 Eliz Bingham MD [address] [place] [address] General Surgery 07/04/22 Ney Hart MD [address] [place] [address] Gastroenterology 07/04/22 Mino Rosales LISW [address] [place] [address] Legal Document Assistant Hematology/Oncology 01/08/23 Print Line Supervisor Relationship Specialty Start Date End Date Jacinta Rivas MD [address] [facility] [place] [address] PCP - General Internal Medicine 02/03/19 Dena Lechuga RN Specialty Button Tufting Machine Operator Oncology 04/24/17 Jesus Carter MD [address] [place] [address] Physician Radiation Oncology 04/24/17 Taz Howard MD [address] [address] Home Care Provider Orthopedics 03/20/19 Taz Howard MD [address] [address] Referring Orthopedics 03/20/19 Eliz Bingham MD 9500 [facility] [address] [place] [address] General Surgery 07/04/22 Ney Hart MD [address] [address] [address] Gastroenterology 07/04/22 Mino Rosales LISW [address] [place] [address] Legal Document Assistant Hematology/Oncology 01/08/23 Print Line Supervisor Relationship Specialty Start Date End Date Jacinta Rivas MD [address] [place] [address] PCP - General Internal Medicine 02/03/19 Dena Lechuga RN Specialty Button Tufting Machine Operator Oncology 04/24/17 Jesus Carter MD [address] [place] [address] Physician Radiation Oncology 04/24/17 Taz Howard MD [address] [address] Home Care Provider Orthopedics 03/20/19 Taz Howard MD [address] [address] Referring Orthopedics 03/20/19 Eliz Bingham MD [address] [place] [address] General Surgery 07/04/22 Ney Hart MD [address] [address] Gastroenterology 07/04/22 Mino Rosales LISW [address] [place] [address] Legal Document Assistant Hematology/Oncology 01/08/23 Print Line Supervisor Relationship Specialty Start Date End Date Jacinta Rivas MD [address] [place] [address] PCP - General Internal Medicine 02/03/19 Dena Lechuga, RN Specialty Button Tufting Machine Operator Oncology 04/24/17 Jesus Carter MD [address] [place] [address] Physician Radiation Oncology 04/24/17 Taz Howard MD [address] [address] Home Care Provider Orthopedics 03/20/19 Taz Howard MD [address] [address] Referring Orthopedics 03/20/19 Eliz Bingham MD [address] [place] [address] General Surgery 07/04/22 Ney Hart MD [address] [facility] [address] [place] [address] Gastroenterology 07/04/22 Mino Rosales LISW [address] [place] [address] Legal Document Assistant Hematology/Oncology 01/08/23 Print Line Supervisor Relationship Specialty Start Date End Date Jacinta Rivas MD [address] [place] [address] PCP - General Internal Medicine 02/03/19 Dena Lechuga RN Specialty Button Tufting Machine Operator Oncology 04/24/17 Jesus Carter MD [address] [place] [address] Physician Radiation Oncology 04/24/17 Taz Howard MD [address] [address] Home Care Provider Orthopedics 03/20/19 Taz Howard MD [address] [address] Referring Orthopedics 03/20/19 Eliz Bingham MD [address] [address] General Surgery 07/04/22 Ney Hart MD [address] [facility] [address] [place] [address] Gastroenterology 07/04/22 Mino Rosales LISW [address] [place] [address] Legal Document Assistant Hematology/Oncology 01/08/23 Print Line Supervisor Relationship Specialty Start Date End Date Jacinta Rivas MD [address] [place] [address] PCP - General Internal Medicine 02/03/19 Dena Lechuga, FE Specialty Button Tufting Machine Operator Oncology 04/24/17 Jesus Carter MD [address] [place] [address] Physician Radiation Oncology 04/24/17 Taz Howard MD [address] [address] Home Care Provider Orthopedics 03/20/19 Taz Howard MD [address] [address] Referring Orthopedics 03/20/19 Eliz Bingham MD [address] [address] General Surgery 07/04/22 Ney Hart MD [address] [place] [address] [place] [address] Gastroenterology 07/04/22 Mino Rosales LISW [address] [place] [address] Legal Document Assistant Hematology/Oncology 01/08/23 Team Status: Active Member Role Status Dates Dr. Jacinta Rivas MD Family Provider Active Dr. Jacinta Rivas MD Primary Care Provider Active Team Status: Inactive Member Role Status Dates Dr. Jacinta Rivas MD Primary Care Provider Active Dr. Jaquan Nelson DO Emergency Provider Active Print Line Supervisor Relationship Specialty Start Date End Date Jacinta Rivas MD [address] [place] [address] PCP - General Internal Medicine 02/03/19 Dena Lechuga RN Specialty Button Tufting Machine Operator Oncology 04/24/17 Jesus Carter MD [address] [place] [address] Physician Radiation Oncology 04/24/17 Taz Howard MD [address] [address] Home Care Provider Orthopedics 03/20/19 Taz Howard MD [address] [address] Referring Orthopedics 03/20/19 Eliz Bingham MD [address] [address] General Surgery 07/04/22 Ney Hart MD [address] [facility] [address] [place] [address] Gastroenterology 07/04/22 Mino Rosales LISW [address] [place] [address] Legal Document Assistant Hematology/Oncology 01/08/23 Print Line Supervisor Relationship Specialty Start Date End Date Jacinta Rivas MD [address] [place] [address] PCP - General Internal Medicine 02/03/19 Dena Lechuga RN Specialty Button Tufting Machine Operator Oncology 04/24/17 Jesus Carter MD [address] [place] [address] Physician Radiation Oncology 04/24/17 Taz Howard MD [address] [address] Home Care Provider Orthopedics 03/20/19 Taz Howard MD [address] [address] Referring Orthopedics 03/20/19 Eliz Bingham MD [address] [place] [address] General Surgery 07/04/22 Ney Hart MD [address] [address] Gastroenterology 07/04/22 Mino Rosales LISW [address] [place] [address] Legal Document Assistant Hematology/Oncology 01/08/23 Print Line Supervisor Relationship Specialty Start Date End Date Jacinta Rivas MD [address] [place] [address] PCP - General Internal Medicine 02/03/19 Dena Lechuga, FE Specialty Button Tufting Machine Operator Oncology 04/24/17 Jesus Carter MD [address] [facility] [address] Physician Radiation Oncology 04/24/17 Taz Howard MD [address] [address] Home Care Provider Orthopedics 03/20/19 Taz Howard MD [address] [address] Referring Orthopedics 03/20/19 Eliz Bingham MD [address] [address] General Surgery 07/04/22 Ney Hart MD [address] [facility] [address] [place] [address] Gastroenterology 07/04/22 Mino Rosales LISW 721 [place] [address] Legal Document Assistant Hematology/Oncology 01/08/23 Print Line Supervisor Relationship Specialty Start Date End Date Jacinta Rivas MD [address] [facility] [place] [address] PCP - General Internal Medicine 02/03/19 Dena Lechuga, FE Specialty Button Tufting Machine Operator Oncology 04/24/17 Jesus Carter MD [address] [place] [address] Physician Radiation Oncology 04/24/17 Taz Howard MD [address] [address] Home Care Provider Orthopedics 03/20/19 Taz Howard MD [address] [address] Referring Orthopedics 03/20/19 Eliz Bingham MD [address] [address] General Surgery 07/04/22 Ney Hart MD [address] [place] [address] Gastroenterology 07/04/22 Mino Rosales LISW [address] [place] [facility] [place] [address] Legal Document Assistant Hematology/Oncology 01/08/23 Print Line Supervisor Relationship Specialty Start Date End Date Jacinta Rivas MD [address] [facility] [place] [address] PCP - General Internal Medicine 02/03/19 Dena Lechuga RN Specialty Button Tufting Machine Operator Oncology 04/24/17 Jesus Carter MD [address] [place] [address] Physician Radiation Oncology 04/24/17 Taz Howard MD [address] [address] Home Care Provider Orthopedics 03/20/19 Taz Howard MD [address] [address] Referring Orthopedics 03/20/19 Eliz Bingham MD [address] [address] General Surgery 07/04/22 Ney Hart MD [address] [place] [address] Gastroenterology 07/04/22 Mino Rosales LISW [address] [place] [address] Legal Document Assistant Hematology/Oncology 01/08/23 Tatianna Crook [facility] [address] [place] [address] Pharmacist Pharmacy 07/18/23 Print Line Supervisor Relationship Specialty Start Date End Date Jacinta Rivas MD [address] [place] [address] PCP - General Internal Medicine 02/03/19 Dena Lechuga, FE Specialty Button Tufting Machine Operator Oncology 04/24/17 Jesus Carter MD [address] [facility] [place] [address] Physician Radiation Oncology 04/24/17 Taz Howard MD [address] [address] Home Care Provider Orthopedics 03/20/19 aTz Howard MD [address] [address] Referring Orthopedics 03/20/19 Eliz Bingham MD [address] [address] General Surgery 07/04/22 Ney Hart MD [address] [facility] [address] [address] Gastroenterology 07/04/22 Mino Rosales LISW [address] [place] [address] Legal Document Assistant Hematology/Oncology 01/08/23 Tatianna Crook [facility] [address] [place] [address] Pharmacist Pharmacy 07/18/23 Print Line Supervisor Relationship Specialty Start Date End Date Jacinta Rivas MD [address] [place] [address] PCP - General Internal Medicine 02/03/19 Dena Lechuga, RN Specialty Button Tufting Machine Operator Oncology 04/24/17 Jesus Carter MD [address] [place] [address] Physician Radiation Oncology 04/24/17 Taz Howard MD [address] [address] Home Care Provider Orthopedics 03/20/19 Taz Howard MD [address] [address] Referring Orthopedics 03/20/19 Eliz Bingham MD [address] [address] General Surgery 07/04/22 Ney Hart MD [address] [address] Gastroenterology 07/04/22 Mino Rosales LISW [address] [place] [address] Legal Document Assistant Hematology/Oncology 01/08/23 Tatianna Crook, [facility] [address] [place] [address] Pharmacist Pharmacy 07/18/23 Print Line Supervisor Relationship Specialty Start Date End Date Jacinta Rivas MD [address] [facility] [place] [address] PCP - General Internal Medicine 02/03/19 Dena Lechuga RN Specialty Button Tufting Machine Operator Oncology 04/24/17 Jesus Carter MD [address] [place] [address] Physician Radiation Oncology 04/24/17 Taz Howard MD [address] [address] Home Care Provider Orthopedics 03/20/19 Taz Howard MD [address] [address] Referring Orthopedics 03/20/19 Eliz Bingham MD [address] [address] General Surgery 07/04/22 Ney Hart MD [address] [address] Gastroenterology 07/04/22 Mino Rosales LISW [address] [place] [address] Legal Document Assistant Hematology/Oncology 01/08/23 Tatianna Crook, [facility] [address] [place] [address] Pharmacist Pharmacy 07/18/23 Print Line Supervisor Relationship Specialty Start Date End Date Jacinta Rivas MD [address] [place] [address] PCP - General Internal Medicine 02/03/19 Dena Lechuga RN Specialty Button Tufting Machine Operator Oncology 04/24/17 Jesus Carter MD [address] [facility] [place] [address] Physician Radiation Oncology 04/24/17 Taz Howard MD [address] [address] Home Care Provider Orthopedics 03/20/19 Taz Howard MD [address] [address] Referring Orthopedics 03/20/19 Eliz Bingham MD [address] [address] General Surgery 07/04/22 Ney Hart MD [address] [address] Gastroenterology 07/04/22 Mino Rosales LISW [address] [place] [address] Legal Document Assistant Hematology/Oncology 01/08/23 Tatianna Crook, [facility] [address] [place] [address] Pharmacist Pharmacy 07/18/23 Print Line Supervisor Relationship Specialty Start Date End Date Jacinta Rivas MD [address] [place] [address] PCP - General Internal Medicine 02/03/19 Dena Lechuga RN Specialty Button Tufting Machine Operator Oncology 04/24/17 Jesus Carter MD [address] [facility] [place] [address] Physician Radiation Oncology 04/24/17 Taz Howard MD [address] [address] Home Care Provider Orthopedics 03/20/19 Taz Howard MD [address] [address] Referring Orthopedics 03/20/19 Eliz Bingham MD [address] [address] General Surgery 07/04/22 Ney Hart MD [address] [address] Gastroenterology 07/04/22 Mino Rosales LISW [address] [place] [address] Legal Document Assistant Hematology/Oncology 01/08/23 Tatianna Crook, [facility] [address] [place] [address] Pharmacist Pharmacy 07/18/23 Print Line Supervisor Relationship Specialty Start Date End Date Jacinta Rivas MD [address] [place] [address] PCP - General Internal Medicine 02/03/19 Dena Lechuga, RN Specialty Button Tufting Machine Operator Oncology 04/24/17 Jesus Carter MD [address] [place] [address] Physician Radiation Oncology 04/24/17 Taz Howard MD [address] [address] Home Care Provider Orthopedics 03/20/19 Taz Howard MD [address] [address] Referring Orthopedics 03/20/19 Eliz Bingham MD [address] [address] General Surgery 07/04/22 Ney Hart MD [address] [address] Gastroenterology 07/04/22 Mino Rosales LISW [address] [place] [address] Legal Document Assistant Hematology/Oncology 01/08/23 Tatianna Crook, [facility] [address] [place] [address] Pharmacist Pharmacy 07/18/23 Print Line Supervisor Relationship Specialty Start Date End Date Jacinta Rivas MD [address] [place] [address] PCP - General Internal Medicine 02/03/19 Dena Lechuga, RN Specialty Button Tufting Machine Operator Oncology 04/24/17 Jesus Carter MD [address] [place] [address] Physician Radiation Oncology 04/24/17 Taz Howard MD [address] [address] Home Care Provider Orthopedics 03/20/19 Taz Howard MD [address] [facility] [address] [place] [address] Referring Orthopedics 03/20/19 Eliz Bingham MD [address] [facility] [address] [place] [address] General Surgery 07/04/22 Ney Hart MD [address] [address] Gastroenterology 07/04/22 Mino Rosales LISW [address] [place] [address] Legal Document Assistant Hematology/Oncology 01/08/23 Tatianna Crook, [facility] [address] [place] [address] Pharmacist Pharmacy 07/18/23 Print Line Supervisor Relationship Specialty Start Date End Date Jacinta Rivas MD [address] [place] [address] PCP - General Internal Medicine 02/03/19 Dena Lechuga, RN Specialty Button Tufting Machine Operator Oncology 04/24/17 Jesus Carter MD [address] [place] [address] Physician Radiation Oncology 04/24/17 Taz Howard MD [address] [place] [address] Home Care Provider Orthopedics 03/20/19 Taz Howard MD [address] [address] Referring Orthopedics 03/20/19 Eliz Bingham MD [address] [address] General Surgery 07/04/22 Ney Hart MD [address] [address] Gastroenterology 07/04/22 Mino Rosales LISW 721 [facility] [address] Legal Document Assistant Hematology/Oncology 01/08/23 Tatianna Crook, [facility] [address] [place] [address] Pharmacist Pharmacy 07/18/23 Print Line Supervisor Relationship Specialty Start Date End Date Jacinta Rivas MD [address] [place] [address] PCP - General Internal Medicine 02/03/19 Dena Lechuga, RN Specialty Button Tufting Machine Operator Oncology 04/24/17 Jesus Carter MD [address] [place] [address] Physician Radiation Oncology 04/24/17 Taz Howard MD [address] [address] Home Care Provider Orthopedics 03/20/19 Taz Howard MD [address] [address] Referring Orthopedics 03/20/19 Eliz Bingham MD [address] [address] General Surgery 07/04/22 Ney Hart MD [address] [facility] [address] [place] [address] Gastroenterology 07/04/22 Mino Rosales LISW 721 [place] [address] Legal Document Assistant Hematology/Oncology 01/08/23 Tatianna Crook, [facility] 1740 [place] [address] Pharmacist Pharmacy 07/18/23 Print Line Supervisor Relationship Specialty Start Date End Date Jacinta Rivas MD [address]40 [facility] [place] [address] PCP - General Internal Medicine 02/03/19 Dena Lechuga RN Specialty Button Tufting Machine Operator Oncology 04/24/17 Jesus Carter MD [address] [facility] [place] [address] Physician Radiation Oncology 04/24/17 Taz Howard MD [address] [address] Home Care Provider Orthopedics 03/20/19 Taz Howard MD [address] [address] Referring Orthopedics 03/20/19 Eliz Bingham MD [address] [address] General Surgery 07/04/22 Ney Hart MD [address] [facility] [facility] [address] [place] [address] Gastroenterology 07/04/22 Mino Rosales LISW [address] [place] [address] Legal Document Assistant Hematology/Oncology 01/08/23 Print Line Supervisor Relationship Specialty Start Date End Date Jacinta Rivas MD [address] [place] [address] PCP - General Internal Medicine 02/03/19 Dena Lechuga RN Specialty Button Tufting Machine Operator Oncology 04/24/17 Jesus Carter MD 7[address] [facility] [address] Physician Radiation Oncology 04/24/17 Taz Howard MD [address] [address] Home Care Provider Orthopedics 03/20/19 Taz Howard MD [address] [address] Referring Orthopedics 03/20/19 Eliz Bingham MD [address] [address] General Surgery 07/04/22 Ney Hart MD [address] [facility] [address] [address] Gastroenterology 07/04/22 Mino Rosales LISW [address] [place] [address] Legal Document Assistant Hematology/Oncology 01/08/23 Tatianna Crook, [facility] [address] [place] [address] Pharmacist Pharmacy 07/18/23 Print Line Supervisor Relationship Specialty Start Date End Date Jacinta Rivas MD [address] [place] [address] PCP - General Internal Medicine 02/03/19 Dena Lechuga, RN Specialty Button Tufting Machine Operator Oncology 04/24/17 Jesus Carter MD [address] [place] [address] Physician Radiation Oncology 04/24/17 Taz Howard MD [address] [address] Home Care Provider Orthopedics 03/20/19 Taz Howard MD [address] [address] Referring Orthopedics 03/20/19 Eliz Bingham MD [address] [address] General Surgery 07/04/22 Ney Hart MD [address] [address] Gastroenterology 07/04/22 Mino Rosales LISW [address] [place] [address] Legal Document Assistant Hematology/Oncology 01/08/23 Tatianna Crook [facility] [address] [place] [address] Pharmacist Pharmacy 07/18/23 Print Line Supervisor Relationship Specialty Start Date End Date Jacinta Rivas MD [address] [place] [address] PCP - General Internal Medicine 02/03/19 Dena Lechuga RN Specialty Button Tufting Machine Operator Oncology 04/24/17 Jesus Carter MD [address] [place] [address] Physician Radiation Oncology 04/24/17 Taz Howard MD [address] [address] Home Care Provider Orthopedics 03/20/19 Taz Howard MD [address] [address] Referring Orthopedics 03/20/19 Eliz Bingham MD [address] [address] General Surgery 07/04/22 Ney Hart MD [address] [address] Gastroenterology 07/04/22 Mino Rosales LISW [address] [place] [address] Legal Document Assistant Hematology/Oncology 01/08/23 Tatianna Crook, [facility] [address] [place] [address] Pharmacist Pharmacy 07/18/23 Print Line Supervisor Relationship Specialty Start Date End Date Jacinta Rivas MD [address] [place] [address] PCP - General Internal Medicine 02/03/19 Dena Lechuga RN Specialty Button Tufting Machine Operator Oncology 04/24/17 Jesus Carter MD [address] E [facility] [place] [address] Physician Radiation Oncology 04/24/17 Taz Howard MD [address] [address] Home Care Provider Orthopedics 03/20/19 Taz Howard MD [address] [address] Referring Orthopedics 03/20/19 Eliz Bingham MD [address] [address] General Surgery 07/04/22 Ney Hart MD [address] [address] Gastroenterology 07/04/22 Mino Rosales LISW [address] [place] [address] Legal Document Assistant Hematology/Oncology 01/08/23 MikecaTatianna poon, [facility] [address] [place] [address] Pharmacist Pharmacy 07/18/23 Print Line Supervisor Relationship Specialty Start Date End Date Jacinta Rivas MD [address] [place] [address] PCP - General Internal Medicine 02/03/19 Dena Lechuga, RN Specialty Button Tufting Machine Operator Oncology 04/24/17 Jesus Carter MD [address] [place] [address] Physician Radiation Oncology 04/24/17 Taz Howard MD [address] [address] Home Care Provider Orthopedics 03/20/19 Taz Howard MD [address] [address] Referring Orthopedics 03/20/19 Eliz Bingham MD [address] [address] General Surgery 07/04/22 Ney Hart MD [address] [address] Gastroenterology 07/04/22 Mino Rosales LISW [address] [place] [address] Legal Document Assistant Hematology/Oncology 01/08/23 Tatianna Crook, [facility] [address] [place] [address] Pharmacist Pharmacy 07/18/23 Print Line Supervisor Relationship Specialty Start Date End Date Jacinta Rivas MD [address] [place] [address] PCP - General Internal Medicine 02/03/19 Dena Lechuga, RN Specialty Button Tufting Machine Operator Oncology 04/24/17 Jesus Carter MD [address] [place] [address] Physician Radiation Oncology 04/24/17 Taz Howard MD [address] [address] Home Care Provider Orthopedics 03/20/19 Taz Howard MD [address] [address] Referring Orthopedics 03/20/19 Eliz Bingham MD [address] [address] General Surgery 07/04/22 Ney Hart MD [address] [address] Gastroenterology 07/04/22 Mino Rosales LISW [address] [place] [address] Legal Document Assistant Hematology/Oncology 01/08/23 Tatianna Crook, [facility] [address] [place] [address] Pharmacist Pharmacy 07/18/23 Print Line Supervisor Relationship Specialty Start Date End Date Jacinta Rivas MD [address] [place] [address] PCP - General Internal Medicine 02/03/19 Dena Lechuga, FE Specialty Button Tufting Machine Operator Oncology 04/24/17 Jesus Carter MD [address] [place] [address] Physician Radiation Oncology 04/24/17 Taz Howard MD [address] [address] Home Care Provider Orthopedics 03/20/19 Taz Howard MD [address] [address] Referring Orthopedics 03/20/19 Eliz Bingham MD [address] [address] General Surgery 07/04/22 Ney Hart MD [address] [address] Gastroenterology 07/04/22 Mino Rosales LISW [address] [place] [address] Legal Document Assistant Hematology/Oncology 01/08/23 Tatianna Crook, [facility] [address] [place] [address] Pharmacist Pharmacy 07/18/23 Print Line Supervisor Relationship Specialty Start Date End Date Jacinta Rivas MD [address] [place] [address] PCP - General Internal Medicine 02/03/19 Dena Lechuga, RN Specialty Button Tufting Machine Operator Oncology 04/24/17 Jesus Carter MD [address] [place] [address] Physician Radiation Oncology 04/24/17 Taz Howard MD [address] [address] Home Care Provider Orthopedics 03/20/19 Taz Howard MD [address] [address] Referring Orthopedics 03/20/19 Eliz Bingham MD [address] [address] General Surgery 07/04/22 Ney Hart MD [address] [address] Gastroenterology 07/04/22 Mino Rosales LISW [address] [place] [address] Legal Document Assistant Hematology/Oncology 01/08/23 Tatianna Crook, [facility] [address] [place] [address] Pharmacist Pharmacy 07/18/23 Print Line Supervisor Relationship Specialty Start Date End Date Jacinta Rivas MD [address] [place] [address] PCP - General Internal Medicine 02/03/19 Dena Lechuga, RN Specialty Button Tufting Machine Operator Oncology 04/24/17 Jesus Carter MD [address] [place] [address] Physician Radiation Oncology 04/24/17 Taz Howard MD [address] [address] Home Care Provider Orthopedics 03/20/19 Taz Howard MD [address] [address] Referring Orthopedics 03/20/19 Eliz Bingham MD [address] [address] General Surgery 07/04/22 Ney Hart MD [address] [facility] [address] [place] [address] Gastroenterology 07/04/22 Bobby Mino OIL PIPELINE OPERATOR 721 [place] [address] Legal Document Assistant Hematology/Oncology 01/08/23 Tatianna Crook, [facility] 1740 [place] [address] Pharmacist Pharmacy 07/18/23 Print Line Supervisor Relationship Specialty Start Date End Date Jacinta Rivas MD [address]40 [facility] [place] [address] PCP - General Internal Medicine 02/03/19 Dena Lechuga RN Specialty Button Tufting Machine Operator Oncology 04/24/17 Jesus Carter MD [address] [facility] [place] [address] Physician Radiation Oncology 04/24/17 Taz Howard MD [address] [address] Home Care Provider Orthopedics 03/20/19 Taz Howard MD [address] [address] Referring Orthopedics 03/20/19 Eliz Bingham MD [address] [address] General Surgery 07/04/22 Ney Hart MD [address] [facility] [facility] [address] [place] [address] Gastroenterology 07/04/22 Mino Rosales LISW [address] [place] [address] Legal Document Assistant Hematology/Oncology 01/08/23 Tatianna Crook, [facility] 1740 [place] [address] Pharmacist Pharmacy 07/18/23 Print Line Supervisor Relationship Specialty Start Date End Date Jacinta Rivas MD [address] [facility] [place] [address] PCP - General Internal Medicine 02/03/19 Dena Lechuga, FE Specialty Button Tufting Machine Operator Oncology 04/24/17 Jesus Carter MD [address] [place] [address] Physician Radiation Oncology 04/24/17 Taz Howard MD [address] [address] Home Care Provider Orthopedics 03/20/19 Taz Howard MD [address] [address] Referring Orthopedics 03/20/19 Eliz Bingham MD [address] [address] General Surgery 07/04/22 Ney Hart MD [address] [facility] [address] [address] Gastroenterology 07/04/22 Mino Rosales LISW [address] [place] [address] Legal Document Assistant Hematology/Oncology 01/08/23 Tatianna Crook, [facility] [address] [place] [address] Pharmacist Pharmacy 07/18/23 Print Line Supervisor Relationship Specialty Start Date End Date Jacinta Rivas MD [address] [place] [address] PCP - General Internal Medicine 02/03/19 Dena Lechuga RN Specialty Button Tufting Machine Operator Oncology 04/24/17 Jesus Carter MD [address] [place] [address] Physician Radiation Oncology 04/24/17 Taz Howard MD [address] [address] Home Care Provider Orthopedics 03/20/19 Taz Howard MD [address] [address] Referring Orthopedics 03/20/19 Eliz Bingham MD [address] [address] General Surgery 07/04/22 Ney Hart MD [address] [facility] [address] [address] Gastroenterology 07/04/22 Mino Rosales LISW [address] [place] [address] Legal Document Assistant Hematology/Oncology 01/08/23 Tatianna Crook, [facility] [address] [place] [address] Pharmacist Pharmacy 07/18/23 Print Line Supervisor Relationship Specialty Start Date End Date Jacinta Rivas MD [address] [place] [address] PCP - General Internal Medicine 02/03/19 Dena Lechuga, RN Specialty Button Tufting Machine Operator Oncology 04/24/17 Jesus Carter MD [address] [place] [address] Physician Radiation Oncology 04/24/17 Taz Howard MD [address] [address] Home Care Provider Orthopedics 03/20/19 Taz Howard MD [address] [address] Referring Orthopedics 03/20/19 Eliz Bingham MD [address] [address] General Surgery 07/04/22 Ney Hart MD [address] [address] Gastroenterology 07/04/22 Mino Rosales LISW [address] [place] [address] Legal Document Assistant Hematology/Oncology 01/08/23 Tatianna Crook [facility] [address] [place] [address] Pharmacist Pharmacy 07/18/23 Print Line Supervisor Relationship Specialty Start Date End Date Jaicnta Rivas MD [address] [place] [address] PCP - General Internal Medicine 02/03/19 Dena Lechuga RN Specialty Button Tufting Machine Operator Oncology 04/24/17 Jesus Carter MD [address] [place] [address] Physician Radiation Oncology 04/24/17 Taz Howard MD [address] [address] Home Care Provider Orthopedics 03/20/19 Taz Howard MD [address] [address] Referring Orthopedics 03/20/19 Eliz Bingham MD [address] [address] General Surgery 07/04/22 Ney Hart MD [address] [address] Gastroenterology 07/04/22 Mino Rosales LISW [address] [place] [address] Legal Document Assistant Hematology/Oncology 01/08/23 Tatianna Crook, [facility] [address] [place] [address] Pharmacist Pharmacy 07/18/23 Print Line Supervisor Relationship Specialty Start Date End Date Jacinta Rivas MD [address] [place] [address] PCP - General Internal Medicine 02/03/19 Dena Lechuga RN Specialty Button Tufting Machine Operator Oncology 04/24/17 Jesus Carter MD [address] [place] [address] Physician Radiation Oncology 04/24/17 Taz Howard MD [address] [facility] [address] [place] [address] Home Care Provider Orthopedics 03/20/19 Taz Howard MD [address] [facility] [address] [place] [address] Referring Orthopedics 03/20/19 Eliz Bingham MD [address] [facility] [address] [place] [address] General Surgery 07/04/22 Ney Hart MD [address] [address] Gastroenterology 07/04/22 Mino Rosales LISW [address] [place] [address] Legal Document Assistant Hematology/Oncology 01/08/23 PaneccaTatianna poon, [facility] [address] [place] [address] Pharmacist Pharmacy 07/18/23 Print Line Supervisor Relationship Specialty Start Date End Date Jacinta Rivas MD [address] [place] [address] PCP - General Internal Medicine 02/03/19 Dena Lechuga, RN Specialty Button Tufting Machine Operator Oncology 04/24/17 Jesus Carter MD [address] [place] [address] Physician Radiation Oncology 04/24/17 Taz Howard MD [address] [address] Home Care Provider Orthopedics 03/20/19 Taz Howard MD [address] [address] Referring Orthopedics 03/20/19 Eliz Bingham MD [address] [address] General Surgery 07/04/22 Ney Hart MD [address] [address] Gastroenterology 07/04/22 Mino Rosales LISW [address] [place] [address] Legal Document Assistant Hematology/Oncology 01/08/23 Tatianna Crook, [facility] [address] [place] [address] Pharmacist Pharmacy 07/18/23 Print Line Supervisor Relationship Specialty Start Date End Date Jacinta Rivas MD [address] [place] [address] PCP - General Internal Medicine 02/03/19 Dena Lechuga, RN Specialty Button Tufting Machine Operator Oncology 04/24/17 Jesus Carter MD [address] [place] [address] Physician Radiation Oncology 04/24/17 Taz Howard MD [address] [address] Home Care Provider Orthopedics 03/20/19 Taz Howard MD [address] [address] Referring Orthopedics 03/20/19 Lizeth [place]osta, PT [address] [place] [address] Sterile Technician Acute Care 03/21/19 11/05/22 Print Line Supervisor Relationship Specialty Start Date End Date Jacinta Rivas MD [address] [place] [address] PCP - General Internal Medicine 02/03/19 Dena Lechuga, RN Specialty Button Tufting Machine Operator Oncology 04/24/17 Jesus Carter MD [address] [place] [address] Physician Radiation Oncology 04/24/17 Taz Howard MD [address] [address] Home Care Provider Orthopedics 03/20/19 Taz Howard MD [address] [address] Referring Orthopedics 03/20/19 Eliz Bingham MD [address] [address] General Surgery 07/04/22 Ney Hart MD [address] [place] [address] [address] Gastroenterology 07/04/22 Mino Rosales LISW 721 [place] [address] Legal Document Assistant Hematology/Oncology 01/08/23 Tatianna Crook [facility] 1740 [place] [address] Pharmacist Pharmacy 07/18/23 Print Line Supervisor Relationship Specialty Start Date End Date Jacinta Rivas MD [address] [facility] [place] [address] PCP - General Internal Medicine 02/03/19 Dena Lechuga, FE Specialty Button Tufting Machine Operator Oncology 04/24/17 Jesus Carter MD [address] [facility] [place] [address] Physician Radiation Oncology 04/24/17 Taz Howard MD [address] [address] Home Care Provider Orthopedics 03/20/19 Taz Howard MD [address] [address] Referring Orthopedics 03/20/19 Eliz Bingham MD [address] [address] General Surgery 07/04/22 Ney Hart MD [address] [facility] [address] [address] Gastroenterology 07/04/22 Mino Rosales LISW 721 [place] [address] Legal Document Assistant Hematology/Oncology 01/08/23 Tatianna Crook [facility] [address] [place] [address] Pharmacist Pharmacy 07/18/23 Print Line Supervisor Relationship Specialty Start Date End Date Jacinta Rivas MD [address] [place] [address] PCP - General Internal Medicine 02/03/19 Dena Lechuga, FE Specialty Button Tufting Machine Operator Oncology 04/24/17 Jesus Carter MD [address] [place] [address] Physician Radiation Oncology 04/24/17 Taz Howard MD [address] [address] Home Care Provider Orthopedics 03/20/19 Taz Howard MD [address] [address] Referring Orthopedics 03/20/19 Eliz Bingham MD [address] [address] General Surgery 07/04/22 Ney Hart MD [address] [address] Gastroenterology 07/04/22 Mino Rosales LISW [address] [place] [address] Legal Document Assistant Hematology/Oncology 01/08/23 Tatianna Crook, [facility] [address] [place] [address] Pharmacist Pharmacy 07/18/23 Print Line Supervisor Relationship Specialty Start Date End Date Jacinta Rivas MD [address] [place] [address] PCP - General Internal Medicine 02/03/19 Dena Lechuga, RN Specialty Button Tufting Machine Operator Oncology 04/24/17 Jesus Carter MD [address] [place] [address] Physician Radiation Oncology 04/24/17 Lisa Malhotra, FE [address] [place] [address] Research Nurse Hematology/Oncology 05/23/18 01/25/22 Taz Howard MD [address] [address] Home Care Provider Orthopedics 03/20/19 Taz Howard MD [address] [address] Referring Orthopedics 03/20/19 Lizeth Acosta, PT [address] [place], [place] [address] Sterile Technician Acute Care 03/21/19 11/05/22 Print Line Supervisor Relationship Specialty Start Date End Date Jacinta Rivas MD [address] [place] [address] PCP - General Internal Medicine 02/03/19 Dena Lechuga, RN Specialty Button Tufting Machine Operator Oncology 04/24/17 Jesus Carter MD [address] [place] [address] Physician Radiation Oncology 04/24/17 Taz Howard MD [address] [facility] [address] [place] [address] Home Care Provider Orthopedics 03/20/19 Taz Howard MD [address] [facility] [address] [place] [address] Referring Orthopedics 03/20/19 Eliz Bingham MD [address] [facility] [address] [place] [address] General Surgery 07/04/22 Ney Hart MD [address] [facility] [address] [address] Gastroenterology 07/04/22 Mino Rosales LISW 721 [place] [address] Legal Document Assistant Hematology/Oncology 01/08/23 Tatianna Crook, [facility] 1740 [place] [address] Pharmacist Pharmacy 07/18/23 Print Line Supervisor Relationship Specialty Start Date End Date Jacinta Rivas MD [address] [place] [address] PCP - General Internal Medicine 02/03/19 Dena Lechuga RN Specialty Button Tufting Machine Operator Oncology 04/24/17 Jesus Carter MD [address] [facility] [address] Physician Radiation Oncology 04/24/17 Lisa Malhotra, FE [address] [facility] [place] [address] Research Nurse Hematology/Oncology 05/23/18 01/25/22 Taz Howard MD [address] [address] Home Care Provider Orthopedics 03/20/19 Taz Howard MD [address] [address] Referring Orthopedics 03/20/19 Lizeth Acosta, PT [address] [place] [address] Sterile Technician Acute Care 03/21/19 11/05/22 Print Line Supervisor Relationship Specialty Start Date End Date Jacinta Rivas MD [address] [place] [address] PCP - General Internal Medicine 02/03/19 Dena Lechuga RN Specialty Button Tufting Machine Operator Oncology 04/24/17 Jesus Carter MD [address]21 [place] [address] Physician Radiation Oncology 04/24/17 Taz Howard MD [address] [place] [address] Home Care Provider Orthopedics 03/20/19 Taz Howard MD [address] [address] Referring Orthopedics 03/20/19 Eliz Bingham MD [address] [address] General Surgery 07/04/22 Ney Hart MD [address] [facility] [address] [place] [address] Gastroenterology 07/04/22 Mino Rosales LISW 721 [place] [address] Legal Document Assistant Hematology/Oncology 01/08/23 Ambreen Tatianna, [facility] 1740 [place] [address] Pharmacist Pharmacy 07/18/23 Print Line Supervisor Relationship Specialty Start Date End Date Jacinta Rivas MD [address]40 [place] [address] PCP - General Internal Medicine 02/03/19 Dena Lechuga, RN Specialty Button Tufting Machine Operator Oncology 04/24/17 Jesus Carter MD [address] [place] [address] Physician Radiation Oncology 04/24/17 Taz Howard MD [address] [address] Home Care Provider Orthopedics 03/20/19 Taz Howard MD [address] [address] Referring Orthopedics 03/20/19 Eliz Bingham MD [address] [address] General Surgery 07/04/22 Ney Hart MD [address] [facility] [address] [place] [address] Gastroenterology 07/04/22 Mino Rosales LISW [address] [place] [address] Legal Document Assistant Hematology/Oncology 01/08/23 Tatianna Crook [facility] 1740 [place] [address] Pharmacist Pharmacy 07/18/23 Print Line Supervisor Relationship Specialty Start Date End Date Jacinta Rivas MD 1740 [facility] [place] [address] PCP - General Internal Medicine 02/03/19 Dena Lechuga, FE Specialty Button Tufting Machine Operator Oncology 04/24/17 Jesus Carter MD 721 E [facility] [place] [address] Physician Radiation Oncology 04/24/17 Taz Howard MD [address] [address] Home Care Provider Orthopedics 03/20/19 Taz Howard MD [address] [address] Referring Orthopedics 03/20/19 Eliz Bingham MD [address] [address] General Surgery 07/04/22 Ney Hart MD [address] [facility] [address] [address] Gastroenterology 07/04/22 Mino Rosales LISW [address] [place] [address] Legal Document Assistant Hematology/Oncology 01/08/23 Tatianna Crook [facility] [address] [place] [address] Pharmacist Pharmacy 07/18/23 Print Line Supervisor Relationship Specialty Start Date End Date Jacinta Rivas MD [address] [place] [address] PCP - General Internal Medicine 02/03/19 Dena Lechuga, FE Specialty Button Tufting Machine Operator Oncology 04/24/17 Jesus Carter MD [address] [place] [address] Physician Radiation Oncology 04/24/17 Taz Howard MD [address] [address] Home Care Provider Orthopedics 03/20/19 Taz Howard MD [address] [address] Referring Orthopedics 03/20/19 Eliz Bingham MD [address] [address] General Surgery 07/04/22 Ney Hart MD [address] [address] Gastroenterology 07/04/22 Mino Rosales LISW [address] [place] [address] Legal Document Assistant Hematology/Oncology 01/08/23 Tatianna Crook, [facility] [address] [place] [address] Pharmacist Pharmacy 07/18/23 Print Line Supervisor Relationship Specialty Start Date End Date Jacinta Rivas MD [address] [place] [address] PCP - General Internal Medicine 02/03/19 Dena Lechuga, RN Specialty Button Tufting Machine Operator Oncology 04/24/17 Jesus Carter MD [address] [place] [address] Physician Radiation Oncology 04/24/17 Taz Howard MD 970 [address] [facility] [address] [place] [address] Home Care Provider Orthopedics 03/20/19 Tza Howard MD [address] [facility] [address] [place] [address] Referring Orthopedics 03/20/19 Eliz Bingham MD [address] [facility] [address] [place] [address] General Surgery 07/04/22 Ney Hart MD [address] [address] Gastroenterology 07/04/22 Mino Rosales LISW [address]21 [place] [address] Legal Document Assistant Hematology/Oncology 01/08/23 Tatianna Crook, [facility] 17[address] [place], [place] [address] Pharmacist Pharmacy 07/18/23 Print Line Supervisor Relationship Specialty Start Date End Date Jacinta Rivas MD [address] [place] [address] PCP - General Internal Medicine 02/03/19 Dena Lechuga RN Specialty Button Tufting Machine Operator Oncology 04/24/17 Jesus Carter MD 721 E [facility] [place] [address] Physician Radiation Oncology 04/24/17 Taz Howard MD [address] [address] Home Care Provider Orthopedics 03/20/19 Taz Howard MD [address] [address] Referring Orthopedics 03/20/19 Eliz Bingham MD [address] [address] General Surgery 07/04/22 Ney Hart MD [address] [address] Gastroenterology 07/04/22 Mino Rosales LISW [address] [place] [address] Legal Document Assistant Hematology/Oncology 01/08/23 Tatianna Crook, [facility] [address] [place] [address] Pharmacist Pharmacy 07/18/23 Print Line Supervisor Relationship Specialty Start Date End Date Jacinta Rivas MD [address] [place] [address] PCP - General Internal Medicine 02/03/19 Dena Lechuga RN Specialty Button Tufting Machine Operator Oncology 04/24/17 Jesus Carter MD [address] [place] [address] Physician Radiation Oncology 04/24/17 Taz Howard MD [address] [address] Home Care Provider Orthopedics 03/20/19 Taz Howard MD [address] [address] Referring Orthopedics 03/20/19 Eliz Bingham MD [address] [address] General Surgery 07/04/22 Ney Hart MD [address] [address] Gastroenterology 07/04/22 Mino Rosales LISW 721 [place] [address] Legal Document Assistant Hematology/Oncology 01/08/23 Tatianna Crook, [facility] [address] [place] [address] Pharmacist Pharmacy 07/18/23 Print Line Supervisor Relationship Specialty Start Date End Date Jacinta Rivas MD [address] [place] [address] PCP - General Internal Medicine 02/03/19 Dena Lechuga, RN Specialty Button Tufting Machine Operator Oncology 04/24/17 Jesus Carter MD [address] [place] [address] Physician Radiation Oncology 04/24/17 Taz Howard MD [address] [address] Home Care Provider Orthopedics 03/20/19 Taz Howard MD [address] [address] Referring Orthopedics 03/20/19 Eliz Bingham MD [address] [address] General Surgery 07/04/22 Ney Hart MD [address] [address] Gastroenterology 07/04/22 Mino Rosales LISW 721 [place] [address] Legal Document Assistant Hematology/Oncology 01/08/23 PaneccasiTatianna slaughter, [facility] [address] [place] [address] Pharmacist Pharmacy 07/18/23 Print Line Supervisor Relationship Specialty Start Date End Date Jacinta Rivas MD [address] [place] [address] PCP - General Internal Medicine 02/03/19 Dena Lechuga, RN Specialty Button Tufting Machine Operator Oncology 04/24/17 Jesus Carter MD [address] [place] [address] Physician Radiation Oncology 04/24/17 Taz Howard MD [address] [address] Home Care Provider Orthopedics 03/20/19 Taz Howard MD [address] [facility] [address] [place] [address] Referring Orthopedics 03/20/19 Eliz Bingham MD [address] [facility] [address] [place] [address] General Surgery 07/04/22 Ney Hart MD [address] [address] Gastroenterology 07/04/22 Mino Rosales LISW 721 [place] [address] Legal Document Assistant Hematology/Oncology 01/08/23 Tatianna Crook, [facility] [address] [place] [address] Pharmacist Pharmacy 07/18/23 Cathy Burr, 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 [address] [place] [address] Feeder Loader Internal Medicine 03/16/24 Lisbet Pizano 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 [address] [place] [address] Feeder Loader Internal Medicine 03/16/24 Print Line Supervisor Relationship Specialty Start Date End Date Jacinta Rivas MD [address] [place] [address] PCP - General Internal Medicine 02/03/19 Dena Lechuga, RN Specialty Button Tufting Machine Operator Oncology 04/24/17 Jesus Carter MD [address] [place] [address] Physician Radiation Oncology 04/24/17 Taz Howard MD [address] [facility] [address] [place] [address] Home Care Provider Orthopedics 03/20/19 Taz Howard MD [address] [facility] [address] [place] [address] Referring Orthopedics 03/20/19 Eliz Bingham MD [address] [facility] [address] [place] [address] General Surgery 07/04/22 Ney Hart MD [address] [address] Gastroenterology 07/04/22 Mino Rosales LISW 721 [place] [address] Legal Document Assistant Hematology/Oncology 01/08/23 Tatianna Crook [facility] [address] [place] [address] Pharmacist Pharmacy 07/18/23 Cathy Burr APRN.LOGISTICS TEAM LEADER [address] [place] [address] Feeder Loader Internal Medicine 03/16/24 Lisbet Pizano 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 [address] [place], [place] [address]40941 Feeder Loader Internal Medicine 03/16/24 Print Line Supervisor Relationship Specialty Start Date End Date Jacinta Rivas MD [address] [place] [address] PCP - General Internal Medicine 02/03/19 Dena Lechuga, RN Specialty Button Tufting Machine Operator Oncology 04/24/17 Jesus Carter MD [address] [place] [place] [address] Physician Radiation Oncology 04/24/17 Taz Howard MD [address] [address] Home Care Provider Orthopedics 03/20/19 Taz Howard MD [address] [address] Referring Orthopedics 03/20/19 Eliz Bingham MD [address] [address] General Surgery 07/04/22 Ney Hart MD [address] [place] [address] [address] Gastroenterology 07/04/22 Mino Rosales LISW [address] [place] [address] Legal Document Assistant Hematology/Oncology 01/08/23 Tatianna Crook, [facility] [address] [place] [address] Pharmacist Pharmacy 07/18/23 Cathy Burr APRN.LOGISTICS TEAM LEADER [address] [place] [address] Feeder Loader Internal Medicine 03/16/24 Lisbet Pizano APRN.SECURITY GUARD DISPATCHER [address] [place] [address] Feeder Loader Internal Medicine 03/16/24 Print Line Supervisor Relationship Specialty Start Date End Date Jacinta Rivas MD [address] [place] [address] PCP - General Internal Medicine 02/03/19 Dena Lechuga, RN Specialty Button Tufting Machine Operator Oncology 04/24/17 Jesus Carter MD [address] [place] [address] Physician Radiation Oncology 04/24/17 Taz Howard MD [address] [address] Home Care Provider Orthopedics 03/20/19 Taz Howard MD [address] [address] Referring Orthopedics 03/20/19 Eliz Bingham MD [address] [address] General Surgery 07/04/22 Ney Hart MD [address] [address] Gastroenterology 07/04/22 Mino Rosales LISW [address] [place] [address] Legal Document Assistant Hematology/Oncology 01/08/23 Tatianna Crook [facility] [address] [place] [address] Pharmacist Pharmacy 07/18/23 Cathy Burr APRN.LOGISTICS TEAM LEADER [address] [place], [place] 593071 Feeder Loader Internal Medicine 03/16/24 Lisbet Pizano APRN.SECURITY GUARD DISPATCHER [address] [place], [place] 718161 Feeder Loader Internal Medicine 03/16/24 Print Line Supervisor Relationship Specialty Start Date End Date Jacinta Rivas MD [address] [place], [place] 144261 PCP - General Internal Medicine 02/03/19 Dena Lechuga, FE Specialty Button Tufting Machine Operator Oncology 04/24/17 Jesus Carter MD [address] [place] [address] Physician Radiation Oncology 04/24/17 Taz Howard MD [address] [address] Home Care Provider Orthopedics 03/20/19 Taz Howard MD [address] [address] Referring Orthopedics 03/20/19 Eliz Bingham MD [address] [address] General Surgery 07/04/22 Ney Hart MD [address] [facility] [address] [address] Gastroenterology 07/04/22 Mino Rosales LISW [address] [place] [address] Legal Document Assistant Hematology/Oncology 01/08/23 Tatianna Crook, [facility] [address] [place] [address] Pharmacist Pharmacy 07/18/23 Cathy Burr APRN.LOGISTICS TEAM LEADER [address] [place] [address] Feeder Loader Internal Medicine 03/16/24 Lisbet Pizano APRN.SECURITY GUARD DISPATCHER [address] [place], [place] 683611 Feeder Loader Internal Medicine 03/16/24 Print Line Supervisor Relationship Specialty Start Date End Date Jacinta Rivas MD [address] [place] [address] PCP - General Internal Medicine 02/03/19 Dena Lechuga RN Specialty Button Tufting Machine Operator Oncology 04/24/17 eJsus Carter MD [address] [place] [address] Physician Radiation Oncology 04/24/17 Taz Howard MD [address] [address] Home Care Provider Orthopedics 03/20/19 Taz Howard MD [address] [address] Referring Orthopedics 03/20/19 Eliz Bingham MD [address] [address] General Surgery 07/04/22 Ney Hart MD [address] [address] Gastroenterology 07/04/22 Mino Rosales LISW [address] [place] [address] Legal Document Assistant Hematology/Oncology 01/08/23 Tatianna Crook, [facility] [address] [place] [address] Pharmacist Pharmacy 07/18/23 Cathy Burr APRN.LOGISTICS TEAM LEADER [address] [place], [place] 307291 Feeder Loader Internal Medicine 03/16/24 Lisbet Pizano APRN.SECURITY GUARD DISPATCHER [address] [place], [place] 401871 Feeder Loader Internal Medicine 03/16/24 Print Line Supervisor Relationship Specialty Start Date End Date Jacinta Rivas MD [address] [place], [place] 196491 PCP - General Internal Medicine 02/03/19 Dena Lechuga, FE Specialty Button Tufting Machine Operator Oncology 04/24/17 Jesus Carter MD [address] [place], [place] 233441 Physician Radiation Oncology 04/24/17 Taz Howard MD [address] [address] Home Care Provider Orthopedics 03/20/19 Taz Howard MD [address] [address] Referring Orthopedics 03/20/19 Eliz Bingham MD [address] [address] General Surgery 07/04/22 Ney Hart MD [address] [facility] [address] [address] Gastroenterology 07/04/22 Mino Rosales LISW [address] [place] [address] Legal Document Assistant Hematology/Oncology 01/08/23 Tatianna Crook, [facility] [address] [place] [address] Pharmacist Pharmacy 07/18/23 Cathy Burr APRN.LOGISTICS TEAM LEADER [address] [place] [address] Feeder Loader Internal Medicine 03/16/24 Lisbet Pizano 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 [address] [place], [place] [address] Feeder Loader Internal Medicine 03/16/24 Print Line Supervisor Relationship Specialty Start Date End Date Jacinta Rivas MD [address] [place], [place] 071071 PCP - General Internal Medicine 02/03/19 Dena Lechuga, FE Specialty Button Tufting Machine Operator Oncology 04/24/17 Jesus Carter MD [address] [facility] [address] Physician Radiation Oncology 04/24/17 Taz Howard MD [address] [place] [address] [address] [place] [address] Home Care Provider Orthopedics 03/20/19 Taz Howard MD [address] [facility] [address] [place] [address] Referring Orthopedics 03/20/19 Eliz Bingham MD [address] [facility] [address] [place] [address] General Surgery 07/04/22 Ney Hart MD [address] [facility] 206 [place] [address] Gastroenterology 07/04/22 Mino Rosales LISW [address] [place] [address] Legal Document Assistant Hematology/Oncology 01/08/23 Tatianna Crook, [facility] [address] [place] [address] Pharmacist Pharmacy 07/18/23 Cathy Burr, FLEICIA.LOGISTICS TEAM LEADER [address] [place] [address] Feeder Loader Internal Medicine 03/16/24 Lisbet Pizano APRN.SECURITY GUARD DISPATCHER [address] [place] [address] Feeder Loader Internal Medicine 03/16/24 Print Line Supervisor Relationship Specialty Start Date End Date Jacinta Rivas MD [address] [place] [address] PCP - General Internal Medicine 02/03/19 Dena Lechuga, FE Specialty Button Tufting Machine Operator Oncology 04/24/17 Jesus Carter MD [address] [facility] [place] [address] Physician Radiation Oncology 04/24/17 Taz Howard MD [address] [facility] [address] [place] [address] Home Care Provider Orthopedics 03/20/19 Taz Howard MD [address] [facility] [address] [place] [address] Referring Orthopedics 03/20/19 Eliz Bingham MD [address] [facility] [address] [place] [address] General Surgery 07/04/22 Ney Hart MD [address] [address] Gastroenterology 07/04/22 Mino Rosales LISW [address] [place] [address] Legal Document Assistant Hematology/Oncology 01/08/23 SbeccaTatianna poon, [facility] [address] [place] [address] Pharmacist Pharmacy 07/18/23 Cathy Burr, 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 [address] [place] [address] Feeder Loader Internal Medicine 03/16/24 Lisbet Pizano, 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 [address] [place] [address] Feeder Loader Internal Medicine 03/16/24 Print Line Supervisor Relationship Specialty Start Date End Date Jacinta Rivas MD [address] [place] [address] PCP - General Internal Medicine 02/03/19 Dena Lechuga, FE Specialty Button Tufting Machine Operator Oncology 04/24/17 Jesus Carter MD [address] [place] [address] Physician Radiation Oncology 04/24/17 Taz Howard MD [address] [address] Home Care Provider Orthopedics 03/20/19 Taz Howard MD [address] [address] Referring Orthopedics 03/20/19 Eliz Bingham MD [address] [address] General Surgery 07/04/22 Ney Hart MD [address] [place] [address] [address] Gastroenterology 07/04/22 Mino Rosales LISW [address] [place] [address] Legal Document Assistant Hematology/Oncology 01/08/23 PaneccaTatianna poon, [facility] [address] [place] [address] Pharmacist Pharmacy 07/18/23 Cathy Burr APRN.LOGISTICS TEAM LEADER [address] [place] [address] Feeder Loader Internal Medicine 03/16/24 Lisbet Pizano APRN.SECURITY GUARD DISPATCHER [address] [place] [address] Feeder Loader Internal Medicine 03/16/24 Print Line Supervisor Relationship Specialty Start Date End Date Jacinta Rivas MD [address] [place] [address] PCP - General Internal Medicine 02/03/19 Dena Lechuga, RN Specialty Button Tufting Machine Operator Oncology 04/24/17 Jesus Carter MD [address] [place] [address] Physician Radiation Oncology 04/24/17 Taz Howard MD [address] [facility] [address] [place] [address] Home Care Provider Orthopedics 03/20/19 Taz Howard MD [address] [facility] [address] [place] [address] Referring Orthopedics 03/20/19 Eliz Bingham MD [address] [facility] [address] [place] [address] General Surgery 07/04/22 Ney Hart MD [address] [address] Gastroenterology 07/04/22 Mino Rosales LISW [address] [place] [address] Legal Document Assistant Hematology/Oncology 01/08/23 SbecTatianna hankins, [facility] [address] [place], [place] 58[address] Pharmacist Pharmacy 07/18/23 Cathy Burr APRN.LOGISTICS TEAM LEADER [address] [place], [place] [address]58191 Feeder Loader Internal Medicine 03/16/24 Lisbet Pizano APRN.SECURITY GUARD DISPATCHER [address] [place] [address] Feeder Loader Internal Medicine 03/16/24 Print Line Supervisor Relationship Specialty Start Date End Date Jacinta Rivas MD [address] [place] [address] PCP - General Internal Medicine 02/03/19 Dena Lechuga, FE Specialty Button Tufting Machine Operator Oncology 04/24/17 Jesus Carter MD [address] [place], [place] [address] Physician Radiation Oncology 04/24/17 Taz Howard MD [address] [address] Home Care Provider Orthopedics 03/20/19 Taz Howard MD [address] [address] Referring Orthopedics 03/20/19 Eliz Bingham MD [address] [address] General Surgery 07/04/22 Ney Hart MD [address] [address] Gastroenterology 07/04/22 Mino Rosales LISW [address] [place] [address] Legal Document Assistant Hematology/Oncology 01/08/23 Tatianna Crook, [facility] [address] [place], [place] [address] Pharmacist Pharmacy 07/18/23 Cathy Burr, 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 [address] [place], [place] 134261 Feeder Loader Internal Medicine 03/16/24 Lisbet Pizano APRN.SECURITY GUARD DISPATCHER [address] [place], [place] [id number] [facility] [place] [facility] Internal Medicine 03/16/24 Print Line Supervisor Relationship Specialty Start Date End Date Jacinta Rivas MD [address] [place], [place] [address] PCP - General Internal Medicine 02/03/19 Dena Lechuga RN Specialty Button Tufting Machine Operator Oncology 04/24/17 Jesus Carter MD [address] [place] [address] Physician Radiation Oncology 04/24/17 Taz Howard MD [address] [address] Home Care Provider Orthopedics 03/20/19 Taz Howard MD [address] [address] Referring Orthopedics 03/20/19 Eliz Bingham MD [address] [address] General Surgery 07/04/22 Ney Hatr MD [address] [place] [address] [address] Gastroenterology 07/04/22 Mino Rosales LISW [address] [place] [address] Legal Document Assistant Hematology/Oncology 01/08/23 Tatianna Crook [facility] [address] [place] [address] Pharmacist Pharmacy 07/18/23 Cathy Burr APRN.LOGISTICS TEAM LEADER [address] [place], [place] 556021 Feeder Loader Internal Medicine 03/16/24 Lisbet Pizano APRN.SECURITY GUARD DISPATCHER [address] [place], [place] [address] Feeder Loader Internal Medicine 03/16/24 Print Line Supervisor Relationship Specialty Start Date End Date Jacinta Rivas MD [address] [place] [address] PCP - General Internal Medicine 02/03/19 Dena Lechuga, FE Specialty Button Tufting Machine Operator Oncology 04/24/17 Jesus Carter MD [address] [place] [address] Physician Radiation Oncology 04/24/17 Taz Howard MD [address] [address] Home Care Provider Orthopedics 03/20/19 Taz Howard MD [address] [address] Referring Orthopedics 03/20/19 Eliz Bingham MD [address] [address] General Surgery 07/04/22 Ney Hart MD [address] [address] Gastroenterology 07/04/22 Mino Rosales LISW [address] [place] [address] Legal Document Assistant Hematology/Oncology 01/08/23 Tatianna Crook, [facility] [address] [place] [address] Pharmacist Pharmacy 07/18/23 Cathy Burr APRN.LOGISTICS TEAM LEADER [address] [place] [address] Feeder Loader Internal Medicine 03/16/24 Lisbet Pizano APRN.SECURITY GUARD DISPATCHER [address] [place] [address] Feeder Loader Internal Medicine 03/16/24 Print Line Supervisor Relationship Specialty Start Date End Date Jacinta Rivas MD [address] [place] [address] PCP - General Internal Medicine 02/03/19 Dena Lechuga, RN Specialty Button Tufting Machine Operator Oncology 04/24/17 Jesus Carter MD [address] [place] [address] Physician Radiation Oncology 04/24/17 Taz Howard MD [address] [address] Home Care Provider Orthopedics 03/20/19 Taz Howard MD [address] [address] Referring Orthopedics 03/20/19 Eliz Bingham MD [address] [address] General Surgery 07/04/22 Ney Hart MD [address] [address] Gastroenterology 07/04/22 Mino Rosales LISW [address] [place] [address] Legal Document Assistant Hematology/Oncology 01/08/23 Tatianna Crook, [facility] [address] [place] [address] Pharmacist Pharmacy 07/18/23 Cathy Burr, 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 [address] [place] [address] Feeder Loader Internal Medicine 03/16/24 Lisbet Pizano, 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 [address] [place] [address] Feeder Loader Internal Medicine 03/16/24 Print Line Supervisor Relationship Specialty Start Date End Date Jacinta Rivas MD [address] [place] [address] PCP - General Internal Medicine 02/03/19 Dena Lechuga, RN Specialty Button Tufting Machine Operator Oncology 04/24/17 Jesus Carter MD [address] [place] [address] Physician Radiation Oncology 04/24/17 Taz Howard MD [address] [address] Home Care Provider Orthopedics 03/20/19 Taz Howard MD [address] [address] Referring Orthopedics 03/20/19 Eliz Bingham MD [address] [address] General Surgery 07/04/22 Ney Hart MD [address] [address] Gastroenterology 07/04/22 Mino Rosales LISW [address] [place] [address] Legal Document Assistant Hematology/Oncology 01/08/23 Tatianna Crook [facility] [address] [place] [address] Pharmacist Pharmacy 07/18/23 Cathy Burr APRN.LOGISTICS TEAM LEADER [address] [place] [address] Feeder Loader Internal Medicine 03/16/24 Lisbet Pizano APRN.SECURITY GUARD DISPATCHER [address] [place] [address] Feeder Loader Internal Medicine 03/16/24 Print Line Supervisor Relationship Specialty Start Date End Date Jacinta Rivas MD [address] [place] [address] PCP - General Internal Medicine 02/03/19 Dena Lechuga, FE Specialty Button Tufting Machine Operator Oncology 04/24/17 Jesus Carter MD [address] [place] [address] Physician Radiation Oncology 04/24/17 Taz Howard MD [address] [address] Home Care Provider Orthopedics 03/20/19 Taz Howard MD [address] [address] Referring Orthopedics 03/20/19 Eliz Bingham MD [address] [address] General Surgery 07/04/22 Ney Hart MD [address] [address] Gastroenterology 07/04/22 Mino Rosales LISW [address]21 [place] [address] Legal Document Assistant Hematology/Oncology 01/08/23 PaneccaTatianna poon, [facility] [address]40 [place] [address] Pharmacist Pharmacy 07/18/23 Cathy Burr APRN.LOGISTICS TEAM LEADER [address] [place] [address] Feeder Loader Internal Medicine 03/16/24 Lisbet Pizano APRN.SECURITY GUARD DISPATCHER [address] [place] [address] Feeder Loader Internal Medicine 03/16/24 Print Line Supervisor Relationship Specialty Start Date End Date Jacinta Rivas MD [address]40 [facility] [place] [address] PCP - General Internal Medicine 02/03/19 Dena Lechuga, RN Specialty Button Tufting Machine Operator Oncology 04/24/17 Jesus Carter MD [address] [facility] [place] [address] Physician Radiation Oncology 04/24/17 Taz Howard MD [address] [facility] [address] [place] [address] Home Care Provider Orthopedics 03/20/19 Taz Howard MD [address] [address] Referring Orthopedics 03/20/19 Eliz Bingham MD [address] [address] General Surgery 07/04/22 Ney Hart MD [address] [address] Gastroenterology 07/04/22 Mino Rosales LISW 721 [place] [address] Legal Document Assistant Hematology/Oncology 01/08/23 PanecTatianna hankins, [facility] [address] [place] [address] Pharmacist Pharmacy 07/18/23 Cathy Burr APRN.LOGISTICS TEAM LEADER [address] [place] [address] Feeder Loader Internal Medicine 03/16/24 Lisbet Pizano APRN.SECURITY GUARD DISPATCHER [address] [place] [address] Feeder Loader Internal Medicine 03/16/24 Print Line Supervisor Relationship Specialty Start Date End Date Jacinta Rivas MD [address] [place] [address] PCP - General Internal Medicine 02/03/19 Dena Lechuga, FE Specialty Button Tufting Machine Operator Oncology 04/24/17 Jesus Carter MD [address] [place], [place] [address]761 Physician Radiation Oncology 04/24/17 Taz Howard MD [address] [address] Home Care Provider Orthopedics 03/20/19 Taz Howard MD [address] [address] Referring Orthopedics 03/20/19 Eliz Bingham MD [address] [address] General Surgery 07/04/22 Ney Hart MD [address] [address] Gastroenterology 07/04/22 Mino Rosales LISW [address]21 [place] [address] Legal Document Assistant Hematology/Oncology 01/08/23 Tatianna Crook, [facility] [address] [place], [place] [address]11 Pharmacist Pharmacy 07/18/23 Cathy Burr APRN.LOGISTICS TEAM LEADER [address] [facility] [place] [address] Feeder Loader Internal Medicine 03/16/24 Lisbet Pizano 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 [address] [place] [address] Feeder Loader Internal Medicine 03/16/24 Print Line Supervisor Relationship Specialty Start Date End Date Jacinta Rivas MD [address] [place], [place] 985181 PCP - General Internal Medicine 02/03/19 Dena Lechuga, FE Specialty Button Tufting Machine Operator Oncology 04/24/17 Jesus Carter MD [address] [place] [address] Physician Radiation Oncology 04/24/17 Taz Howard MD [address] [address] Home Care Provider Orthopedics 03/20/19 Taz Howard MD [address] [address] Referring Orthopedics 03/20/19 Eliz Bingham MD [address] [address] General Surgery 07/04/22 Ney Hart MD [address] [place] [address] [address] Gastroenterology 07/04/22 Mino Rosales LISW [address] [place] [address] Legal Document Assistant Hematology/Oncology 01/08/23 Tatianna Crook [facility] [address] [place], [place] 776081 Pharmacist Pharmacy 07/18/23 Cathy Burr APRN.LOGISTICS TEAM LEADER [address] [place], [place] 764911 Feeder Loader Internal Medicine 03/16/24 Lisbet Pizano 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 [address] [place], [place] [id number] Feeder Loader Internal Medicine 03/16/24 Print Line Supervisor Relationship Specialty Start Date End Date Jacinta Rivas MD [address] [place], [place] [id number] PCP - General Internal Medicine 02/03/19 Dena Lechuga, FE Specialty Button Tufting Machine Operator Oncology 04/24/17 Jesus Carter MD [address] [place], [place] 422[address] Physician Radiation Oncology 04/24/17 Taz Howard MD [address] [address] Home Care Provider Orthopedics 03/20/19 Taz Howard MD [address] [address] Referring Orthopedics 03/20/19 Eliz Bingham MD [address] [address] General Surgery 07/04/22 Ney Hart MD [address] [address] Gastroenterology 07/04/22 Mino Rosales LISW [address] [place] [address] Legal Document Assistant Hematology/Oncology 01/08/23 Tatianna Crook, [facility] [address] [place] [address] Pharmacist Pharmacy 07/18/23 Cathy Burr, 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 [address] [place] [address] Feeder Loader Internal Medicine 03/16/24 Lisbet Pizano 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 [address] [place], [place] 434651 Feeder Loader Internal Medicine 03/16/24 Print Line Supervisor Relationship Specialty Start Date End Date Jacinta Rivas MD [address] [place], [place] 902531 PCP - General Internal Medicine 02/03/19 Dena Lechuga, RN Specialty Button Tufting Machine Operator Oncology 04/24/17 Jesus Carter MD [address] [place], [place] 380771 Physician Radiation Oncology 04/24/17 Taz Howard MD [address] [address] Home Care Provider Orthopedics 03/20/19 Taz Howard MD [address] [address] Referring Orthopedics 03/20/19 Eliz Bingham MD [address] [address] General Surgery 07/04/22 Ney Hart MD [address] [address] Gastroenterology 07/04/22 Mino Rosales LISW [address] [place] [address] Legal Document Assistant Hematology/Oncology 01/08/23 Tatianna Crook [facility] [address] [place] [address] Pharmacist Pharmacy 07/18/23 Cathy Burr APRN.LOGISTICS TEAM LEADER [address] [place] [address] Feeder Loader Internal Medicine 03/16/24 Lisbet Pizano 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 [address] [place], [place] [address]96011 Feeder Loader Internal Medicine 03/16/24 Print Line Supervisor Relationship Specialty Start Date End Date Jacinta Rivas MD [address] [place] [address] PCP - General Internal Medicine 02/03/19 Dena Lechuga, RN Specialty Button Tufting Machine Operator Oncology 04/24/17 Jesus Carter MD [address] [place], [place] 196461 Physician Radiation Oncology 04/24/17 Taz Howard MD [address] [address] Home Care Provider Orthopedics 03/20/19 Taz Howard MD [address] [address] Referring Orthopedics 03/20/19 Eliz Bingham MD [address] [address] General Surgery 07/04/22 Ney Hart MD [address] [address] Gastroenterology 07/04/22 Mino Rosales LISW [address] [place] [address] Legal Document Assistant Hematology/Oncology 01/08/23 [facility] [address] [place] [address] Pharmacist Pharmacy 07/18/23 Cathy Burr APRN.LOGISTICS TEAM LEADER [address] [place] [address] Feeder Loader Internal Medicine 03/16/24 Lisbet Pizano APRN.SECURITY GUARD DISPATCHER [address] [place] [address] Feeder Loader Internal Medicine 03/16/24 Print Line Supervisor Relationship Specialty Start Date End Date Jacinta Rivas MD [address] [place], [place] 070131 PCP - General Internal Medicine 02/03/19 Dena Lechuga, RN Specialty Button Tufting Machine Operator Oncology 04/24/17 Jesus Carter MD [address] [place] [address] Physician Radiation Oncology 04/24/17 Taz Howard MD [address] [address] Home Care Provider Orthopedics 03/20/19 Taz Howard MD [address] [address] Referring Orthopedics 03/20/19 Eliz Bingham MD [address] [address] General Surgery 07/04/22 Ney Hart MD [address] [address] Gastroenterology 07/04/22 Mino Rosales LISW [address]21 [place] [address] Legal Document Assistant Hematology/Oncology 01/08/23 Tatianna Crook, [facility] [address] [place] [address] Pharmacist Pharmacy 07/18/23 Cathy Burr APRN.LOGISTICS TEAM LEADER [address] [place] [address] Feeder Loader Internal Medicine 03/16/24 Lisbet Pizano APRN.SECURITY GUARD DISPATCHER [address] [place], [place] 332641 Feeder Loader Internal Medicine 03/16/24 Print Line Supervisor Relationship Specialty Start Date End Date Jacinta Rivas MD [address] [place] [address] PCP - General Internal Medicine 02/03/19 Dena Lechuga, RN Specialty Button Tufting Machine Operator Oncology 04/24/17 Jesus Carter MD [address] [place] [address] Physician Radiation Oncology 04/24/17 Taz Howard MD [address] [address] Home Care Provider Orthopedics 03/20/19 Taz Howard MD [address] [address] Referring Orthopedics 03/20/19 Eliz Bingham MD [address] [address] General Surgery 07/04/22 Ney Hart MD [address] [address] Gastroenterology 07/04/22 Mino Rosales LISW [address] [place] [address] Legal Document Assistant Hematology/Oncology 01/08/23 Tatianna Crook, [facility] [address] [place] [address] Pharmacist Pharmacy 07/18/23 Cathy Burr APRN.LOGISTICS TEAM LEADER [address] [place] [address] Feeder Loader Internal Medicine 03/16/24 Lisbet Pizano, 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 [address] [place] [address] Feeder Loader Internal Medicine 03/16/24 Print Line Supervisor Relationship Specialty Start Date End Date Jacinta Rivas MD [address] [place] [address] PCP - General Internal Medicine 02/03/19 Dena Lechuga, FE Specialty Button Tufting Machine Operator Oncology 04/24/17 Jesus Carter MD [address] [place] [address] Physician Radiation Oncology 04/24/17 Taz Howard MD [address] [address] Home Care Provider Orthopedics 03/20/19 Taz Howard MD [address] [address] Referring Orthopedics 03/20/19 Eliz Bingham MD [address] [address] General Surgery 07/04/22 Ney Hart MD [address] [address] Gastroenterology 07/04/22 Mino Rosales LISW [address] [place] [address] Legal Document Assistant Hematology/Oncology 01/08/23 Tatianna Crook, [facility] [address] [place] [address] Pharmacist Pharmacy 07/18/23 Cathy Burr APRN.LOGISTICS TEAM LEADER [address] [place] [address] Feeder Loader Internal Medicine 03/16/24 Lisbet Pizano APRN.SECURITY GUARD DISPATCHER [address] [place] [address] Feeder Loader Internal Medicine 03/16/24 Print Line Supervisor Relationship Specialty Start Date End Date Jacinta Rivas MD [address] [place] [address] PCP - General Internal Medicine 02/03/19 Dena Lechuga, FE Specialty Button Tufting Machine Operator Oncology 04/24/17 Jesus Carter MD [address] [place] [place] [address] Physician Radiation Oncology 04/24/17 Taz Howard MD [address] [address] Home Care Provider Orthopedics 03/20/19 Taz Howard MD [address] [address] Referring Orthopedics 03/20/19 Eliz Bingham MD [address] [address] General Surgery 07/04/22 Ney Hart MD [address] [address] Gastroenterology 07/04/22 Mino Rosales LISW [address] [place] [address] Legal Document Assistant Hematology/Oncology 01/08/23 Tatianna Crook [facility] 1740 [place] [address] Pharmacist Pharmacy 07/18/23 Cathy Burr, FELICIA.LOGISTICS TEAM LEADER [address] [facility] [place] [address] Feeder Loader Internal Medicine 03/16/24 Lisbet Pizano 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 [address] [facility] [place] [address] Feeder Loader Internal Medicine 03/16/24 Print Line Supervisor Relationship Specialty Start Date End Date Jacinta Rivas MD [address] [place] [address] PCP - General Internal Medicine 02/03/19 Dena Lechuga, FE Specialty Button Tufting Machine Operator Oncology 04/24/17 Jesus Carter MD [address] [place] [address] Physician Radiation Oncology 04/24/17 Taz Howard MD [address] [address] Home Care Provider Orthopedics 03/20/19 Taz Howard MD [address] [address] Referring Orthopedics 03/20/19 Eliz Bingham MD [address] [address] General Surgery 07/04/22 Ney Hart MD [address] [place] [address] Gastroenterology 07/04/22 Mino Rosales LISW [address] [place] [address] Legal Document Assistant Hematology/Oncology 01/08/23 Ambreen Tatianna, [facility] 1740 [facility] [address] Pharmacist Pharmacy 07/18/23 Cathy Burr, 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 [address] [place] [address] Feeder Loader Internal Medicine 03/16/24 Lisbet Pizano 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 [address] [place] [address] Feeder Loader Internal Medicine 03/16/24 Print Line Supervisor Relationship Specialty Start Date End Date Jacinta Rivas MD [address] [place] [address] PCP - General Internal Medicine 02/03/19 Dena Lechuga, RN Specialty Button Tufting Machine Operator Oncology 04/24/17 Jesus Carter MD [address] E [facility] [place] [address] Physician Radiation Oncology 04/24/17 Taz Howard MD [address] [address] Home Care Provider Orthopedics 03/20/19 Taz Howard MD [address] [address] Referring Orthopedics 03/20/19 Eliz Bingham MD [address] [address] General Surgery 07/04/22 Ney Hart MD [address] [address] Gastroenterology 07/04/22 Mino Rosales LISW [address]21 [place] [address] Legal Document Assistant Hematology/Oncology 01/08/23 SbecTatianna hankins, [facility] [address] [place] [address] Pharmacist Pharmacy 07/18/23 Cathy Burr APRN.LOGISTICS TEAM LEADER [address] [place] [address] Feeder Loader Internal Medicine 03/16/24 Lisbet Pizano 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 [address] [place] [address] Feeder Loader Internal Medicine 03/16/24 Print Line Supervisor Relationship Specialty Start Date End Date Jacinta Rivas MD [address] [place] [address] PCP - General Internal Medicine 02/03/19 Dena Lechuga, RN Specialty Button Tufting Machine Operator Oncology 04/24/17 Jesus Carter MD 7[address] E [facility] [place] [address] Physician Radiation Oncology 04/24/17 Taz Howard MD [address] [address] Home Care Provider Orthopedics 03/20/19 Taz Howard MD [address] [facility] [address] [place] [address] Referring Orthopedics 03/20/19 Eliz Bingham MD [address] [facility] [address] [place] [address] General Surgery 07/04/22 Ney Hart MD [address] [facility] [address] [place] [address] Gastroenterology 07/04/22 Mino Rosales LISW 721 [place] [address] Legal Document Assistant Hematology/Oncology 01/08/23 [facility] 1740 [place] [address] Pharmacist Pharmacy 07/18/23 Cathy Burr, 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 [address]40 [facility] [place] [address] Feeder Loader Internal Medicine 03/16/24 Lisbet Pizano APRN.SECURITY GUARD DISPATCHER [address] [facility] [place] [address] Feeder Loader Internal Medicine 03/16/24 Print Line Supervisor Relationship Specialty Start Date End Date Jacinta Rivas MD [address] [facility] [place] [address] PCP - General Internal Medicine 02/03/19 Dena Lechuga, RN Specialty Button Tufting Machine Operator Oncology 04/24/17 Jesus Carter MD [address] [facility] [place] [address] Physician Radiation Oncology 04/24/17 Taz Howard MD [address] [facility] [address] [place] [address] Home Care Provider Orthopedics 03/20/19 Taz Howard MD [address] [facility] [address] [place] [address] Referring Orthopedics 03/20/19 Eliz Bingham MD [address] [facility] [address] [place] [address] General Surgery 07/04/22 Ney Hart MD [address] [facility] [address] [address] Gastroenterology 07/04/22 Mino Rosales LISW [address] [place] [address] Legal Document Assistant Hematology/Oncology 01/08/23 Tatianna Crook [facility] [address] [place] [address] Pharmacist Pharmacy 07/18/23 Cathy Burr, 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 [address] [place] [address] Feeder Loader Internal Medicine 03/16/24 Lisbet Pizano, 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 [address] [place] [address] Feeder Loader Internal Medicine 03/16/24 Print Line Supervisor Relationship Specialty Start Date End Date Jacinta Rivas MD [address] [place] [address] PCP - General Internal Medicine 02/03/19 Dena Lechuga, RN Specialty Button Tufting Machine Operator Oncology 04/24/17 Jesus Carter MD [address] [place] [place] [address] Physician Radiation Oncology 04/24/17 Taz Howard MD [address] [address] Home Care Provider Orthopedics 03/20/19 Taz Howard MD [address] [address] Referring Orthopedics 03/20/19 Eliz Bingham MD [address] [address] General Surgery 07/04/22 Ney Hart MD [address] [address] [address] Gastroenterology 07/04/22 Mino Rosales LISW [address] [place] [address] Legal Document Assistant Hematology/Oncology 01/08/23 Tatianna Crook [facility] [address] [place] [address] Pharmacist Pharmacy 07/18/23 Cathy Burr APRN.LOGISTICS TEAM LEADER [address] [place] [address] Feeder Loader Internal Medicine 03/16/24 Lisbet Pizano APRN.SECURITY GUARD DISPATCHER [address] [place] [address] Feeder Loader Internal Medicine 06/30/24 Print Line Supervisor Relationship Specialty Start Date End Date Jacinta Rivas MD [address] [place], [place] [address]32951 PCP - General Internal Medicine 02/03/19 Dena Lechuga, RN Specialty Button Tufting Machine Operator Oncology 04/24/17 Jesus Carter MD [address] [place] [address] Physician Radiation Oncology 04/24/17 Taz Howard MD [address] [address] Home Care Provider Orthopedics 03/20/19 Taz Howard MD [address] [address] Referring Orthopedics 03/20/19 Eliz Bingham MD [address] [address] General Surgery 07/04/22 Ney Hart MD [address] [address] Gastroenterology 07/04/22 Mino Rosales LISW [address] [place] [address] Legal Document Assistant Hematology/Oncology 01/08/23 Tatianna Crook [facility] [address] [place] [address] Pharmacist Pharmacy 07/18/23 Cathy Burr APRN.LOGISTICS TEAM LEADER [address] [place], [place] [address]86001 Feeder Loader Internal Medicine 03/16/24 Lisbet Pizano APRN.SECURITY GUARD DISPATCHER [address] [place], [place] [address]48741 Feeder Loader Internal Medicine 06/30/24 Print Line Supervisor Relationship Specialty Start Date End Date Jacinta Rivas MD [address] [place] [address] PCP - General Internal Medicine 02/03/19 Dena Lechuga, FE Specialty Button Tufting Machine Operator Oncology 04/24/17 Jesus Carter MD 7[address] E [facility] [address] Physician Radiation Oncology 04/24/17 Taz Howard MD [address] [address] Home Care Provider Orthopedics 03/20/19 Taz Howard MD [address] [address] Referring Orthopedics 03/20/19 Eliz Bingham MD [address] [address] General Surgery 07/04/22 Ney Hart MD [address] [address] Gastroenterology 07/04/22 Mino Rosales LISW [address] [place] [address] Legal Document Assistant Hematology/Oncology 01/08/23 Tatianna Crook [facility] [address] [place] [address] Pharmacist Pharmacy 07/18/23 Cathy Burr, FELICIA.LOGISTICS TEAM LEADER [address] [place] [address] Feeder Loader Internal Medicine 03/16/24 Lisbet Pizano 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 [address] [place] [address] Feeder Loader Internal Medicine 06/30/24 Print Line Supervisor Relationship Specialty Start Date End Date Jacinta Rivas MD [address] [place] [address] PCP - General Internal Medicine 02/03/19 Dena Lechuga RN Specialty Button Tufting Machine Operator Oncology 04/24/17 Jesus Carter MD [address] [place] [address] Physician Radiation Oncology 04/24/17 Taz Howard MD [address] [address] Home Care Provider Orthopedics 03/20/19 Taz Howard MD [address] [address] Referring Orthopedics 03/20/19 Eliz Bingham MD [address] [address] General Surgery 07/04/22 Ney Hart MD [address] [place] [address] [address] Gastroenterology 07/04/22 Mino Rosales LISW [address] [place] [address] Legal Document Assistant Hematology/Oncology 01/08/23 Tatianna Crook, [facility] [address] [place] [address] Pharmacist Pharmacy 07/18/23 Cathy Burr, 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 [address] [place] [address] Feeder Loader Internal Medicine 03/16/24 Lisbet Pizano 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 [address] [place] [address] Feeder Loader Internal Medicine 06/30/24 Print Line Supervisor Relationship Specialty Start Date End Date Jacinta Rivas MD [address] [place] [address] PCP - General Internal Medicine 02/03/19 Dena Lechuga, FE Specialty Button Tufting Machine Operator Oncology 04/24/17 Jesus Carter MD [address] [place] [address] Physician Radiation Oncology 04/24/17 Taz Howard MD [address] [address] Home Care Provider Orthopedics 03/20/19 Taz Howard MD [address] [address] Referring Orthopedics 03/20/19 Eliz Bingham MD [address] [address] General Surgery 07/04/22 Ney Hart MD [address] [facility] [address] Gastroenterology 07/04/22 Mino Rosales LISW [address] [place] [address] Legal Document Assistant Hematology/Oncology 01/08/23 Tatianna Crook [facility] 1740 [facility] [address] Pharmacist Pharmacy 07/18/23 Cathy Burr APRN.LOGISTICS TEAM LEADER [address] [place] [address] Feeder Loader Internal Medicine 03/16/24 Lisbet Pizano 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 [address] [place] [address] Feeder Loader Internal Medicine 06/30/24 Print Line Supervisor Relationship Specialty Start Date End Date Jacinta Rivas MD [address] [place] [address] PCP - General Internal Medicine 02/03/19 Dena Lechuga, FE Specialty Button Tufting Machine Operator Oncology 04/24/17 Jesus Carter MD [address] [place] [address] Physician Radiation Oncology 04/24/17 Taz Howard MD [address] [address] Home Care Provider Orthopedics 03/20/19 Taz Howard MD [address] [facility] [address] [place] [address] Referring Orthopedics 03/20/19 Eliz Bingham MD [address] [facility] [address] [place] [address] General Surgery 07/04/22 Ney Hart MD [address] [facility] [address] [place] [address] Gastroenterology 07/04/22 Mino Rosales LISW 721 [place] [address] Legal Document Assistant Hematology/Oncology 01/08/23 PaneccaTatianna poon, [facility] 1740 [place] [address] Pharmacist Pharmacy 07/18/23 Cathy Burr, 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 [address] [facility] [place] [address] Feeder Loader Internal Medicine 03/16/24 Lisbet Pizano, 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 [address] [place] [address] Feeder Loader Internal Medicine 06/30/24 Print Line Supervisor Relationship Specialty Start Date End Date Jacinta Rivas MD [address] [place] [address] PCP - General Internal Medicine 02/03/19 Dena Lechuga, FE Specialty Button Tufting Machine Operator Oncology 04/24/17 Jesus Carter MD [address] [place] [address] Physician Radiation Oncology 04/24/17 Taz Howard MD [address] [facility] [address] [place] [address] Home Care Provider Orthopedics 03/20/19 Taz Howard MD [address] [facility] [address] [place] [address] Referring Orthopedics 03/20/19 Eliz Bingham MD [address] [facility] [address] [place] [address] General Surgery 07/04/22 Ney Hart MD [address] [address] Gastroenterology 07/04/22 Mino Rosales LISW 721 [place] [address] Legal Document Assistant Hematology/Oncology 01/08/23 SbeccaTatianna poon, [facility] 1740 [place] [address] Pharmacist Pharmacy 07/18/23 Cathy Burr, 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 [address] [facility] [place] [address] Feeder Loader Internal Medicine 03/16/24 Lisbet Pizano, 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 [address] [facility] [place] [address] Feeder Loader Internal Medicine 06/30/24 Print Line Supervisor Relationship Specialty Start Date End Date Jacinta Rivas MD [address] [facility] [place] [address] PCP - General Internal Medicine 02/03/19 Dena Lechuga, RN Specialty Button Tufting Machine Operator Oncology 04/24/17 Jesus Carter MD [address] [place] [address] Physician Radiation Oncology 04/24/17 Taz Howard MD [address] [address] Home Care Provider Orthopedics 03/20/19 Taz oHward MD [address] [address] Referring Orthopedics 03/20/19 Eliz Bingham MD [address] [address] General Surgery 07/04/22 Ney Hart MD [address] [address] Gastroenterology 07/04/22 Mino Rosales LISW [address] [place] [address] Legal Document Assistant Hematology/Oncology 01/08/23 Tatianna Crook [facility] [address] [place] [address] Pharmacist Pharmacy 07/18/23 Cathy uBrr APRN.LOGISTICS TEAM LEADER [address] [place] [address] Feeder Loader Internal Medicine 03/16/24 Lisbet Pizano APRN.SECURITY GUARD DISPATCHER [address] [place] [address] Feeder Loader Internal Medicine 06/30/24 Print Line Supervisor Relationship Specialty Start Date End Date Jacinta Rivas MD [address] [place] [address] PCP - General Internal Medicine 02/03/19 Dena Lechuga, RN Specialty Button Tufting Machine Operator Oncology 04/24/17 Jesus Carter MD [address] [place] [address] Physician Radiation Oncology 04/24/17 Taz Howard MD [address] [facility] [address] [place] [address] Home Care Provider Orthopedics 03/20/19 Taz Howard MD [address] [facility] [address] [place] [address] Referring Orthopedics 03/20/19 Eliz Bingham MD [address] [facility] [address] [place] [address] General Surgery 07/04/22 Ney Hart MD [address] [address] Gastroenterology 07/04/22 Mino Rosales LISW [address] [place] [address] Legal Document Assistant Hematology/Oncology 01/08/23 Tatianna Crook, [facility] [address] [place], [place] [address] Pharmacist Pharmacy 07/18/23 Cathy Burr APRN.LOGISTICS TEAM LEADER [address] [place], [place] [id number] Feeder Loader Internal Medicine 03/16/24 Lisbet Pizano APRN.SECURITY GUARD DISPATCHER [address] [place] [address] Feeder Loader Internal Medicine 06/30/24 Print Line Supervisor Relationship Specialty Start Date End Date Jacinta Rivas MD [address] [place] [address] PCP - General Internal Medicine 02/03/19 Dena Lechuga, FE Specialty Button Tufting Machine Operator Oncology 04/24/17 Jesus Carter MD [address] [facility] [address] [place], [place] [id number] Physician Radiation Oncology 04/24/17 Taz Howard MD [address] [address] Home Care Provider Orthopedics 03/20/19 Taz Howard MD [address] [address] Referring Orthopedics 03/20/19 Eliz Bingham MD [address] [address] General Surgery 07/04/22 Ney Hart MD [address] [facility] [address] [address] Gastroenterology 07/04/22 Mino Rosales LISW [address] [place] [address] Legal Document Assistant Hematology/Oncology 01/08/23 Tatianna Crook, [facility] [address] [place] [address] Pharmacist Pharmacy 07/18/23 Cathy Burr APRN.LOGISTICS TEAM LEADER [address] [place], [place] [address] Feeder Loader Internal Medicine 03/16/24 Lisbet Pizano APRN.SECURITY GUARD DISPATCHER [address] [place] [address] [facility] Internal Medicine 03/16/24 06/26/24 Lisbet Pizano APRN.SECURITY GUARD DISPATCHER [address] [place] [address] [facility] Internal Medicine 06/30/24 Print Line Supervisor Relationship Specialty Start Date End Date Jacinta Rivas MD [address] [place] [address] PCP - General Internal Medicine 02/03/19 Dena Lechuga, FE Specialty Button Tufting Machine Operator Oncology 04/24/17 Jesus Carter MD [address] [place] [address] Physician Radiation Oncology 04/24/17 Taz Howard MD [address] [address] Home Care Provider Orthopedics 03/20/19 Taz Howard MD [address] [address] Referring Orthopedics 03/20/19 Eliz Bingham MD [address] [address] General Surgery 07/04/22 Ney Hart MD [address] [address] [address] Gastroenterology 07/04/22 Mino Rosales LISW [address] [place] [address] Legal Document Assistant Hematology/Oncology 01/08/23 [facility] [address] [place] [address] Pharmacist Pharmacy 07/18/23 Cathy Burr APRN.LOGISTICS TEAM LEADER [address] [place] [address] Feeder Loader Internal Medicine 03/16/24 Lisbet Pizano 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 [address] [place] [address] Feeder Loader Internal Medicine 06/30/24 Print Line Supervisor Relationship Specialty Start Date End Date Jacinta Rivas MD [address] [place] [address] PCP - General Internal Medicine 02/03/19 Dena Lechuga, RN Specialty Button Tufting Machine Operator Oncology 04/24/17 Jesus Carter MD [address] [place] [place] [address] Physician Radiation Oncology 04/24/17 Taz Howard MD [address] [address] Home Care Provider Orthopedics 03/20/19 Taz Howard MD [address] [address] Referring Orthopedics 03/20/19 Eliz Bingham MD [address] [address] General Surgery 07/04/22 Ney Hart MD [address] [address] Gastroenterology 07/04/22 Mino Rosales LISW [address] [place] [address] Legal Document Assistant Hematology/Oncology 01/08/23 Tatianna Crook [facility] [address] [place] [address] Pharmacist Pharmacy 07/18/23 Cathy Burr APRN.LOGISTICS TEAM LEADER [address] [place] [address] Feeder Loader Internal Medicine 03/16/24 Lisbet Pizano 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 [address] [place] [address] Feeder Loader Internal Medicine 06/30/24 Print Line Supervisor Relationship Specialty Start Date End Date Jacinta Rivas MD [address] [place] [address] PCP - General Internal Medicine 02/03/19 Dena Lechuga, RN Specialty Button Tufting Machine Operator Oncology 04/24/17 Jesus Carter MD [address] [facility] [place] [address] Physician Radiation Oncology 04/24/17 Taz Howard MD [address] [address] Home Care Provider Orthopedics 03/20/19 Taz Howard MD [address] [facility] [address] [place] [address] Referring Orthopedics 03/20/19 Eliz Bingham MD [address] [facility] [address] [place] [address] General Surgery 07/04/22 Ney Hart MD [address] [facility] [address] [address] Gastroenterology 07/04/22 Mino Rosales LISW [address] [place] [address] Legal Document Assistant Hematology/Oncology 01/08/23 Tatianna Crook, [facility] [address] [place] [address] Pharmacist Pharmacy 07/18/23 Cathy Burr, FELICIA.LOGISTICS TEAM LEADER [address] [place] [address] Feeder Loader Internal Medicine 03/16/24 Lisbet Pizano, 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 [address] [place] [address] Feeder Loader Internal Medicine 06/30/24 Print Line Supervisor Relationship Specialty Start Date End Date Jacinta Rivas MD [address] [place] [address] PCP - General Internal Medicine 02/03/19 Dena Lechuga, FE Specialty Button Tufting Machine Operator Oncology 04/24/17 Jesus Carter MD [address] [place] [address] Physician Radiation Oncology 04/24/17 Taz Howard MD [address] [facility] [address] [place] [address] Home Care Provider Orthopedics 03/20/19 Taz Howard MD [address] [facility] [address] [place] [address] Referring Orthopedics 03/20/19 Eliz Bingham MD [address] [address] General Surgery 07/04/22 Ney Hart MD [address] [facility] [address] Gastroenterology 07/04/22 Mino Rosales LISW [address] [place] [address] Legal Document Assistant Hematology/Oncology 01/08/23 aTtianna Crook [facility] [address] [place] [address] Pharmacist Pharmacy 07/18/23 Cathy Burr APRN.LOGISTICS TEAM LEADER [address] [facility] [place] [address] Feeder Loader Internal Medicine 03/16/24 Lisbet Pizano APRN.SECURITY GUARD DISPATCHER [address] [facility] [place] [address] Feeder Loader Internal Medicine 03/16/24 06/26/24 Lisbet Pizano APRN.SECURITY GUARD DISPATCHER [address] [place] [address] Feeder Loader Internal Medicine 06/30/24 Print Line Supervisor Relationship Specialty Start Date End Date Jacinta Rivas MD [address] [place] [address] PCP - General Internal Medicine 02/03/19 Dena Lechuga, FE Specialty Button Tufting Machine Operator Oncology 04/24/17 Jesus Carter MD [address] [place] [address] Physician Radiation Oncology 04/24/17 Taz Howard MD [address] [address] Home Care Provider Orthopedics 03/20/19 Taz Howard MD [address] [address] Referring Orthopedics 03/20/19 Eliz Bingham MD [address] [address] General Surgery 07/04/22 Ney Hart MD [address] [address] Gastroenterology 07/04/22 Mino Rosales LISW [address] [place] [address] Legal Document Assistant Hematology/Oncology 01/08/23 Tatianna Crook, [facility] [address] [place] [address] Pharmacist Pharmacy 07/18/23 Lisbet Pizano APRN.SECURITY GUARD DISPATCHER [address] [place] [address] Feeder Loader Internal Medicine 06/30/24 Cathy Burr APRN.LOGISTICS TEAM LEADER [address] [place] [address] Feeder Loader Internal Medicine 08/26/24 Print Line Supervisor Relationship Specialty Start Date End Date Jacinta Rivas MD [address] [place] [address] PCP - General Internal Medicine 02/03/19 Dena Lechuga, FE Specialty Button Tufting Machine Operator Oncology 04/24/17 Jesus Carter MD [address] [place] [address] Physician Radiation Oncology 04/24/17 Taz Howard MD [address] [address] Home Care Provider Orthopedics 03/20/19 Taz Howard MD [address] [address] Referring Orthopedics 03/20/19 Eliz Bingham MD [address] [address] General Surgery 07/04/22 Ney Hart MD [address] [address] [address] Gastroenterology 07/04/22 Mino Rosales LISW [address] [place] [address] Legal Document Assistant Hematology/Oncology 01/08/23 Tatianna Crook, [facility] [address] [place], [place] [address] Pharmacist Pharmacy 07/18/23 Lisbet Pizano, 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 [address] [place] [address] Feeder Loader Internal Medicine 06/30/24 Cathy Burr, 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 [address] [place] [address] Feeder Loader Internal Medicine 08/26/24 Print Line Supervisor Relationship Specialty Start Date End Date Jacinta Rivas MD [address] [place], [place] [address] PCP - General Internal Medicine 02/03/19 Dena Lechuga RN Specialty Button Tufting Machine Operator Oncology 04/24/17 Jesus Carter MD [address] [place], [place] [address] Physician Radiation Oncology 04/24/17 Taz Howard MD [address] [address] Home Care Provider Orthopedics 03/20/19 Taz Howard MD [address] [address] Referring Orthopedics 03/20/19 Eliz Bingham MD [address] [address] General Surgery 07/04/22 Ney Hart MD [address] [facility] [address] [place] [address] Gastroenterology 07/04/22 Mino Rosales LISW [address] [place] [address] Legal Document Assistant Hematology/Oncology 01/08/23 Cl Crookietta, [facility] [address] [facility] [place] [address] Pharmacist Pharmacy 07/18/23 Lisbet Pizano, 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 [address] [place] [address] Feeder Loader Internal Medicine 06/30/24 Cathy Burr APRN.LOGISTICS TEAM LEADER [address] [place] [address] Feeder Loader Internal Medicine 08/26/24 Print Line Supervisor Relationship Specialty Start Date End Date Jacinta Rivas MD [address] [place] [address] PCP - General Internal Medicine 02/03/19 Dena Lechuga, RN Specialty Button Tufting Machine Operator Oncology 04/24/17 Jesus Carter MD [address] [facility] [place] [address] Physician Radiation Oncology 04/24/17 Taz Howard MD [address] [address] Home Care Provider Orthopedics 03/20/19 Taz Howard MD [address] [address] Referring Orthopedics 03/20/19 Eliz Bingham MD [address] [facility] [address] [place] [address] General Surgery 07/04/22 Ney Hart MD [address] [facility] [address] [address] Gastroenterology 07/04/22 Mino Rosales LISW [address] [place] [address] Legal Document Assistant Hematology/Oncology 01/08/23 SbeccaTatianna poon, [facility] [address] [place] [address] Pharmacist Pharmacy 07/18/23 Lisbet Pizano, 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 [address] [place] [address] Feeder Loader Internal Medicine 06/30/24 Cathy Burr, 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 [address] [place] [address] Feeder Loader Internal Medicine 08/26/24 Print Line Supervisor Relationship Specialty Start Date End Date Jacinta Rivas MD [address] [place] [address] PCP - General Internal Medicine 02/03/19 Dena Lechuga, RN Specialty Button Tufting Machine Operator Oncology 04/24/17 Jesus Carter MD [address] [facility] [place] [address] Physician Radiation Oncology 04/24/17 Taz Howard MD [address] [address] Home Care Provider Orthopedics 03/20/19 Taz Howard MD [address] [facility] [address] [place] [address] Referring Orthopedics 03/20/19 Eliz Bingham MD [address] [facility] [address] [place] [address] General Surgery 07/04/22 Ney Hart MD [address] [facility] [address] [place] [address] Gastroenterology 07/04/22 Mino Rosales LISW [address] [place] [address] Legal Document Assistant Hematology/Oncology 01/08/23 [facility] [address] [place] [address] Pharmacist Pharmacy 07/18/23 Lisbet Pizano 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 [address] [place] [address] Feeder Loader Internal Medicine 06/30/24 Cathy Burr APRN.LOGISTICS TEAM LEADER [address] [place] [address] Feeder Loader Internal Medicine 08/26/24 Print Line Supervisor Relationship Specialty Start Date End Date Jacinta Rivas MD [address] [place] [address] PCP - General Internal Medicine 02/03/19 Dena Lechuga, RN Specialty Button Tufting Machine Operator Oncology 04/24/17 Jesus Carter MD [address] [facility] [address] Physician Radiation Oncology 04/24/17 Taz Howard MD [address] [address] Home Care Provider Orthopedics 03/20/19 Taz Howard MD [address] [address] Referring Orthopedics 03/20/19 Eliz Bingham MD [address] [address] General Surgery 07/04/22 Ney Hart MD [address] [facility] [address] [address] Gastroenterology 07/04/22 Mino Rosales LISW [address] [place] [address] Legal Document Assistant Hematology/Oncology 01/08/23 Tatianna Crook [facility] [address] [place] [address] Pharmacist Pharmacy 07/18/23 Lisbet Pizano, 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 [address] [place] [address] Feeder Loader Internal Medicine 06/30/24 Cathy Burr, 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 [address] [place] [address] Feeder Loader Internal Medicine 08/26/24 Print Line Supervisor Relationship Specialty Start Date End Date Jacinta Rivas MD [address] [place] [address] PCP - General Internal Medicine 02/03/19 Dena Lechuga, RN Specialty Button Tufting Machine Operator Oncology 04/24/17 Jesus Carter MD [address] [place] [place] [address] Physician Radiation Oncology 04/24/17 Taz Howard MD [address] [address] Home Care Provider Orthopedics 03/20/19 Taz Howard MD [address] [address] Referring Orthopedics 03/20/19 Eliz Bingham MD [address] [address] General Surgery 07/04/22 Ney Hart MD [address] [place] [address] [address] Gastroenterology 07/04/22 Mino Rosales LISW [address] [place] [address] Legal Document Assistant Hematology/Oncology 01/08/23 Tatianna Crook [facility] [address] [place] [address] Pharmacist Pharmacy 07/18/23 Lisbet Pizano APRN.SECURITY GUARD DISPATCHER [address] [place] [address] Feeder Loader Internal Medicine 06/30/24 Cathy Burr APRN.LOGISTICS TEAM LEADER [address] [place] [address] Feeder Loader Internal Medicine 08/26/24 Print Line Supervisor Relationship Specialty Start Date End Date Jacinta Rivas MD [address] [place] [address] PCP - General Internal Medicine 02/03/19 Dena Lechuga, RN Specialty Button Tufting Machine Operator Oncology 04/24/17 Jesus Carter MD [address] [place] [address] Physician Radiation Oncology 04/24/17 Taz Howard MD [address] [address] Home Care Provider Orthopedics 03/20/19 Taz Howard MD [address] [address] Referring Orthopedics 03/20/19 Eliz Bingham MD [address] [address] General Surgery 07/04/22 Ney Hart MD [address] [address] Gastroenterology 07/04/22 Mino Rosales LISW [address] [place] [address] Legal Document Assistant Hematology/Oncology 01/08/23 Tatianna Crook [facility] [address] [place] [address] Pharmacist Pharmacy 07/18/23 Cathy Burr APRN.LOGISTICS TEAM LEADER [address] [place], [place] [address] Feeder Loader Internal Medicine 03/16/24 08/25/24 Lisbet Pizano APRN.SECURITY GUARD DISPATCHER [address] [place] [address] Feeder Loader Internal Medicine 06/30/24 Cathy Burr APRN.LOGISTICS TEAM LEADER [address] [place] [address] Feeder Loader Internal Medicine 08/26/24 Print Line Supervisor Relationship Specialty Start Date End Date Jacinta Rivas MD [address] [place] [address] PCP - General Internal Medicine 02/03/19 Dena Lechuga RN Specialty Button Tufting Machine Operator Oncology 04/24/17 Jesus Carter MD [address] [place] [address] Physician Radiation Oncology 04/24/17 Taz Howard MD [address] [address] Home Care Provider Orthopedics 03/20/19 Taz Howard MD [address] [address] Referring Orthopedics 03/20/19 Eliz Bingham MD [address] [address] General Surgery 07/04/22 Ney Hart MD [address] [place] [address] [address] Gastroenterology 07/04/22 Mino Rosales LISW [address] [place] [address] Legal Document Assistant Hematology/Oncology 01/08/23 Tatianna Crook, [facility] [address] [place] [address] Pharmacist Pharmacy 07/18/23 Libset Pizano 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 [address] [place] [address] Feeder Loader Internal Medicine 06/30/24 Cathy Burr APRN.LOGISTICS TEAM LEADER [address] [place] [address] Feeder Loader Internal Medicine 08/26/24 Print Line Supervisor Relationship Specialty Start Date End Date Jacinta Rivas MD [address] [place] [address] PCP - General Internal Medicine 02/03/19 Dena Lechuga, FE Specialty Button Tufting Machine Operator Oncology 04/24/17 Jesus Carter MD [address] [place] [address] Physician Radiation Oncology 04/24/17 Taz Howard MD [address] [address] Home Care Provider Orthopedics 03/20/19 Taz Howard MD [address] [address] Referring Orthopedics 03/20/19 Eliz Bingham MD [address] [address] General Surgery 07/04/22 Ney Hart MD [address] [place] [address] [facility] [address] [place] [address] Gastroenterology 07/04/22 Mino Rosales LISW [address] [place] [address] Legal Document Assistant Hematology/Oncology 01/08/23 [facility] [address] [facility] [address] Pharmacist Pharmacy 07/18/23 Lisbet Pizano APRN.SECURITY GUARD DISPATCHER [address] [place] [address] Feeder Loader Internal Medicine 06/30/24 Cathy Burr APRN.LOGISTICS TEAM LEADER [address] [place] [address] Feeder Loader Internal Medicine 08/26/24 Print Line Supervisor Relationship Specialty Start Date End Date Jacinta Rivas MD [address] [place] [address] PCP - General Internal Medicine 02/03/19 Dena Lechuga, FE Specialty Button Tufting Machine Operator Oncology 04/24/17 Jesus Carter MD [address] [place] [address] Physician Radiation Oncology 04/24/17 Taz Howard MD [address] [place] [address] [address] [place] [address] Home Care Provider Orthopedics 03/20/19 Taz Howard MD [address] [facility] [address] [place] [address] Referring Orthopedics 03/20/19 Eliz Bingham MD [address] [facility] [address] [place] [address] General Surgery 07/04/22 Ney Hart MD [address] [facility] [address] [place] [address] Gastroenterology 07/04/22 Mino Rosales LISW [address] [place] [address] Legal Document Assistant Hematology/Oncology 01/08/23 Tatianna Crook [facility] [address] [place] [address] Pharmacist Pharmacy 07/18/23 Lisbet Pizano, 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 [address] [facility] [place] [address] Feeder Loader Internal Medicine 06/30/24 Cathy Burr, FELICIA.LOGISTICS TEAM LEADER [address] [facility] [place] [address] Feeder Loader Internal Medicine 08/26/24 Print Line Supervisor Relationship Specialty Start Date End Date Jacinta Rivas MD [address] [facility] [place] [address] PCP - General Internal Medicine 02/03/19 Dena Lechuga, FE Specialty Button Tufting Machine Operator Oncology 04/24/17 Jesus Carter MD [address] [place] [address] Physician Radiation Oncology 04/24/17 Taz Howard MD [address] [facility] [address] [place] [address] Home Care Provider Orthopedics 03/20/19 Taz Howard MD [address] [facility] [address] [place] [address] Referring Orthopedics 03/20/19 Eliz Bingham MD [address] [facility] [address] [place] [address] General Surgery 07/04/22 Ney Hart MD [address] [address] Gastroenterology 07/04/22 Mino Rosales LISW [address] [place] [address] Legal Document Assistant Hematology/Oncology 01/08/23 Tatianna Crook, [facility] [address] [place] [address] Pharmacist Pharmacy 07/18/23 Lisbet Pizano, 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 [address] [facility] [place] [address] Feeder Loader Internal Medicine 06/30/24 Catyh Burr, 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 [address] [facility] [place] [address] Feeder Loader Internal Medicine 08/26/24 Print Line Supervisor Relationship Specialty Start Date End Date Jacinta Rivas MD [address] [facility] [place] [address] PCP - General Internal Medicine 02/03/19 Dena Lechuga, FE Specialty Button Tufting Machine Operator Oncology 04/24/17 Jesus Carter MD [address] [place] [address] Physician Radiation Oncology 04/24/17 Taz Howard MD [address] [address] Home Care Provider Orthopedics 03/20/19 Taz Howard MD [address] [address] Referring Orthopedics 03/20/19 Eliz Bingham MD [address] [address] General Surgery 07/04/22 Ney Hatr MD [address] [address] Gastroenterology 07/04/22 Mino Rosales LISW [address] [place] [address] Legal Document Assistant Hematology/Oncology 01/08/23 Tatianna Crook [facility] [address] [place] [address] Pharmacist Pharmacy 07/18/23 Lisbet Pizano APRN.SECURITY GUARD DISPATCHER [address] [facility] [place] [address] Feeder Loader Internal Medicine 06/30/24 Cathy Burr APRN.LOGISTICS TEAM LEADER [address] [facility] [place] [address] Feeder Loader Internal Medicine 08/26/24 Print Line Supervisor Relationship Specialty Start Date End Date Jacinta Rivas MD [address] [place] [address] PCP - General Internal Medicine 02/03/19 Dena Lechuga, RN Specialty Button Tufting Machine Operator Oncology 04/24/17 Jesus Carter MD [address] [place] [address] Physician Radiation Oncology 04/24/17 Taz Howard MD [address] [facility] [address] [place] [address] Home Care Provider Orthopedics 03/20/19 Taz Howard MD [address] [facility] [address] [place] [address] Referring Orthopedics 03/20/19 Eliz Bingham MD [address] [facility] [address] [place] [address] General Surgery 07/04/22 Ney Hart MD [address] [address] Gastroenterology 07/04/22 Mino Rosales LISW [address] [place] [address] Legal Document Assistant Hematology/Oncology 01/08/23 SbecTatianna hankins, [facility] [address] [place], [place] [address] Pharmacist Pharmacy 07/18/23 Lisbet Pizano APRN.SECURITY GUARD DISPATCHER [address] [place], [place] [id number] Feeder Loader Internal Medicine 06/30/24 Cathy Burr, FELICIA.LOGISTICS TEAM LEADER [address] [place] [address] Feeder Loader Internal Medicine 08/26/24 Print Line Supervisor Relationship Specialty Start Date End Date Jacinta Rivas MD [address] [place] [address] PCP - General Internal Medicine 02/03/19 Dena Lechuga, FE Specialty Button Tufting Machine Operator Oncology 04/24/17 Jesus Carter MD [address] [facility] [place], [place] [address] Physician Radiation Oncology 04/24/17 Taz Howard MD [address] [address] Home Care Provider Orthopedics 03/20/19 Taz Howard MD [address] [address] Referring Orthopedics 03/20/19 Eliz Bingham MD [address] [address] General Surgery 07/04/22 Ney Hart MD [address] [facility] [address] [address] Gastroenterology 07/04/22 Mino Rosales LISW [address] [place] [address] Legal Document Assistant Hematology/Oncology 01/08/23 Tatianna Crook, [facility] [address] [place] [address] Pharmacist Pharmacy 07/18/23 Lisbet Pizano APRN.SECURITY GUARD DISPATCHER [address] [place], [place] [address] Feeder Loader Internal Medicine 06/30/24 Cathy Burr APRN.LOGISTICS TEAM LEADER [address] [place], [place] [address] Feeder Loader Internal Medicine 08/26/24 Print Line Supervisor Relationship Specialty Start Date End Date Jacinta Rivas MD [address] [place], [place] [id number] PCP - General Internal Medicine 02/03/19 Dena Lechuga, RN Specialty Button Tufting Machine Operator Oncology 04/24/17 Jesus Carter MD [address] [place] [address] Physician Radiation Oncology 04/24/17 Taz Howard MD [address] [address] Home Care Provider Orthopedics 03/20/19 Taz Howard MD [address] [address] Referring Orthopedics 03/20/19 Eliz Bingham MD [address] [address] General Surgery 07/04/22 Ney Hart MD [address] [place] [address] [address] Gastroenterology 07/04/22 Mino Rosales LISW [address] [place] [address] Legal Document Assistant Hematology/Oncology 01/08/23 Tatianna Crook [facility] [address] [place] [address] Pharmacist Pharmacy 07/18/23 Lisbet Pizano 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 [address] [place] [address] Feeder Loader Internal Medicine 06/30/24 Cathy Burr APRN.LOGISTICS TEAM LEADER [address] [place] [address] Feeder Loader Internal Medicine 08/26/24 Print Line Supervisor Relationship Specialty Start Date End Date Jacinta Rivas MD [address] [place] [address] PCP - General Internal Medicine 02/03/19 Dena Lechuga, FE Specialty Button Tufting Machine Operator Oncology 04/24/17 Jesus Carter MD [address] [place] [address] Physician Radiation Oncology 04/24/17 Taz Howard MD [address] [address] Home Care Provider Orthopedics 03/20/19 Taz Howard MD [address] [address] Referring Orthopedics 03/20/19 Eliz Bingham MD [address] [address] General Surgery 07/04/22 Ney Hart MD [address] [place] [address] [address] Gastroenterology 07/04/22 Mino Rosales LISW [address] [place] [address] Legal Document Assistant Hematology/Oncology 01/08/23 Tatianna Crook, [facility] [address] [facility] [place] [address] Pharmacist Pharmacy 07/18/23 Lisbet Pizano 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 [address] [place] [address] Feeder Loader Internal Medicine 06/30/24 Cathy Burr APRN.LOGISTICS TEAM LEADER [address] [place] [address] Feeder Loader Internal Medicine 08/26/24 Print Line Supervisor Relationship Specialty Start Date End Date Jacinta Rivas MD [address] [place] [address] PCP - General Internal Medicine 02/03/19 Dena Lechuga, RN Specialty Button Tufting Machine Operator Oncology 04/24/17 Jesus Carter MD [address] [place] [place] [address] Physician Radiation Oncology 04/24/17 Taz Howard MD [address] [address] Home Care Provider Orthopedics 03/20/19 Taz Howard MD [address] [address] Referring Orthopedics 03/20/19 Eliz Bingham MD [address] [address] General Surgery 07/04/22 Ney Hart MD [address] [address] Gastroenterology 07/04/22 Mino Rosales LISW [address] [place] [address] Legal Document Assistant Hematology/Oncology 01/08/23 [facility] [address] [place] [address] Pharmacist Pharmacy 07/18/23 Lisbet Pizano, 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 [address] [place] [address] Feeder Loader Internal Medicine 06/30/24 Cathy Burr, 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 [address] [place] [address] Feeder Loader Internal Medicine 08/26/24 Print Line Supervisor Relationship Specialty Start Date End Date Jacinta Rivas MD [address] [place] [address] PCP - General Internal Medicine 02/03/19 Dena Lechuga, RN Specialty Button Tufting Machine Operator Oncology 04/24/17 Jesus Carter MD [address] [place] [address] Physician Radiation Oncology 04/24/17 Taz Howard MD [address] [address] Home Care Provider Orthopedics 03/20/19 Taz Howard MD [address] [address] Referring Orthopedics 03/20/19 Eliz Bingham MD [address] [address] General Surgery 07/04/22 Ney Hart MD [address] [address] Gastroenterology 07/04/22 Mino Rosales LISW [address] [place] [address] Legal Document Assistant Hematology/Oncology 01/08/23 Tatianna Crook [facility] [address] [place] [address] Pharmacist Pharmacy 07/18/23 Lisbet Pizano APRN.SECURITY GUARD DISPATCHER [address] [place] [address] Feeder Loader Internal Medicine 06/30/24 Cathy Burr APRN.LOGISTICS TEAM LEADER [address] [place] [address] Feeder Loader Internal Medicine 08/26/24 Print Line Supervisor Relationship Specialty Start Date End Date Jacinta Rivas MD [address] [place] [address] PCP - General Internal Medicine 02/03/19 Dena Lechuga, FE Specialty Button Tufting Machine Operator Oncology 04/24/17 Jesus Carter MD [address] [place] [place] [address] Physician Radiation Oncology 04/24/17 Taz Howard MD [address] [address] Home Care Provider Orthopedics 03/20/19 Taz Howard MD [address] [address] Referring Orthopedics 03/20/19 Eliz Bingham MD [address] [address] General Surgery 07/04/22 Ney Hart MD [address] [address] [address] Gastroenterology 07/04/22 Mino Rosales LISW [address] [place] [address] Legal Document Assistant Hematology/Oncology 01/08/23 PaneccaTatianna poon, [facility] [address] [place] [address] Pharmacist Pharmacy 07/18/23 Lisbet Pizano, 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 [address] [place] [address] Feeder Loader Internal Medicine 06/30/24 Cathy Burr APRN.LOGISTICS TEAM LEADER [address] [place] [address] Feeder Loader Internal Medicine 08/26/24 Print Line Supervisor Relationship Specialty Start Date End Date Jacinta Rivas MD [address] [facility] [place] [address] PCP - General Internal Medicine 02/03/19 Dena Lechuga, RN Specialty Button Tufting Machine Operator Oncology 04/24/17 Jesus Carter MD [address] [place] [address] Physician Radiation Oncology 04/24/17 Taz Howard MD [address] [facility] [address] [place] [address] Home Care Provider Orthopedics 03/20/19 Taz Howard MD [address] [address] Referring Orthopedics 03/20/19 Eliz Bingham MD [address] [address] General Surgery 07/04/22 Ney Hart MD [address] [address] Gastroenterology 07/04/22 Mino Rosales LISW 721 [place] [address] Legal Document Assistant Hematology/Oncology 01/08/23 Tatianna Crook, [facility] [address] [place] [address] Pharmacist Pharmacy 07/18/23 Lisbet Pizano APRN.SECURITY GUARD DISPATCHER [address] [place] [address] Feeder Loader Internal Medicine 06/30/24 Cathy Burr APRN.LOGISTICS TEAM LEADER [address] [facility] [place] [address] Feeder Loader Internal Medicine 08/26/24 Print Line Supervisor Relationship Specialty Start Date End Date Jacinta Rivas MD [address] [place] [address] PCP - General Internal Medicine 02/03/19 Dena Lechuga, FE Specialty Button Tufting Machine Operator Oncology 04/24/17 Jesus Carter MD [address] [place] [address] Physician Radiation Oncology 04/24/17 Taz Howard MD [address] [address] Home Care Provider Orthopedics 03/20/19 Taz Howard MD [address] [address] Referring Orthopedics 03/20/19 Eliz Bingham MD [address] [address] General Surgery 07/04/22 Ney Hart MD [address] [facility] [address] [place] [address] Gastroenterology 07/04/22 Mino Rosales LISW [address]21 [place] [address] Legal Document Assistant Hematology/Oncology 01/08/23 Tatianna Crook, [facility] [address] [place] [address] Pharmacist Pharmacy 07/18/23 Lisbet Pizano APRN.SECURITY GUARD DISPATCHER [address] [facility] [place] [address] Feeder Loader Internal Medicine 06/30/24 Cathy Burr, FELICIA.LOGISTICS TEAM LEADER [address] [facility] [place] [address] Feeder Loader Internal Medicine 08/26/24 Print Line Supervisor Relationship Specialty Start Date End Date Jacinta Rivas MD [address] [facility] [place] [address] PCP - General Internal Medicine 02/03/19 Dena Lechuga, FE Specialty Button Tufting Machine Operator Oncology 04/24/17 Jesus Carter MD [address] [place] [address] Physician Radiation Oncology 04/24/17 Taz Howard MD [address] [address] Home Care Provider Orthopedics 03/20/19 Taz Howard MD [address] [address] Referring Orthopedics 03/20/19 Eliz Bingham MD [address] [address] General Surgery 07/04/22 Ney Hart MD [address] [place] [address] [address] Gastroenterology 07/04/22 Mino Rosales LISW [address] [place] [address] Legal Document Assistant Hematology/Oncology 01/08/23 Tatianna Crook [facility] [address] [place], [place] [address] Pharmacist Pharmacy 07/18/23 Lisbet Pizano 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 [address] [place], [place] [address] Feeder Loader Internal Medicine 06/30/24 Cathy Burr APRN.LOGISTICS TEAM LEADER [address] [place], [place] [address] Feeder Loader Internal Medicine 08/26/24 Print Line Supervisor Relationship Specialty Start Date End Date Jacinta Rivas MD [address] [place], [place] 16[address] PCP - General Internal Medicine 02/03/19 Dena Lechuga, FE Specialty Button Tufting Machine Operator Oncology 04/24/17 Jesus Carter MD [address] [place], [place] [address] Physician Radiation Oncology 04/24/17 Taz Howard MD [address] [address] Home Care Provider Orthopedics 03/20/19 Taz Howard MD [address] [address] Referring Orthopedics 03/20/19 Eliz Bingham MD [address] [address] General Surgery 07/04/22 Ney Hart MD [address] [facility] [address] [place] [address] Gastroenterology 07/04/22 Mino Rosales LISW [address] [place] [address] Legal Document Assistant Hematology/Oncology 01/08/23 Tatianna Crook [facility] [address] [place] [address] Pharmacist Pharmacy 07/18/23 Lisbet Pizano, 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 [address] [facility] [place] [address] Feeder Loader Internal Medicine 06/30/24 Cathy Burr, 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 [address] [facility] [place] [address] Feeder Loader Internal Medicine 08/26/24 Team Status: Active Member [...] November 02, 2024 End: November 02, 2024 Print Line Supervisor Relationship Specialty Start Date End Date Jacinta Rivas MD [address] [place] [address] PCP - General Internal Medicine 02/03/19 Dena Lechuga, RN Specialty Button Tufting Machine Operator Oncology 04/24/17 Jesus Carter MD [address] [facility] [address] Physician Radiation Oncology 04/24/17 Taz Howard MD [address] [address] Home Care Provider Orthopedics 03/20/19 Taz Howard MD [address] [address] Referring Orthopedics 03/20/19 Eliz Bingham MD [address] [address] General Surgery 07/04/22 Ney Hart MD [address] [address] Gastroenterology 07/04/22 Mino Rosales LISW [address] [place] [address] Legal Document Assistant Hematology/Oncology 01/08/23 Tatianna Crook [facility] [address] [place] [address] Pharmacist Pharmacy 07/18/23 Lisbet Pizano APRN.SECURITY GUARD DISPATCHER [address] [place] [address] Feeder Loader Internal Medicine 06/30/24 Cathy Burr APRN.LOGISTICS TEAM LEADER [address] [place] [address] Feeder Loader Internal Medicine 08/26/24 Reason for Visit (unrecogniz [...] EVAL HIGH COMPLEX 60 MINS Micki Butler APRN.SECURITY GUARD DISPATCHER [address] [place] [address] Phone: tel: fax: [facility] [address] [place] [address] Referral ID Status Reason Start Date Expiration Date Visits Requested Visits Authorized [id number] Authorized PCP Requested Referral Auto-Generate d Referral 04/08/2024 04/07/2025 99 99 Reason Comments PT Progress Note Specialty Diagnoses / Procedures Referred By Parmjit cabrera Referred To Contact [facility] Diagnoses Malignant neoplasm of lower-outer quadrant of left breast of female, estrogen receptor positive (HCC) Lymphedema of left arm Procedures CONSULT TO LYMPHEDEMA THERAPY OFFICE/OUTPATIENT [facility] 60 MINUTES Serena Carrasco DO [address] [place] [address] [facility] [place] [address] [place] [address] Referral ID Status Reason Start Date Expiration Date Visits Requested Visits Authorized [id number] Authorized Auto-Generat ed Referral 04/13/2024 04/13/2025 99 [...] 30 ML/MIN Serena Carrasco DO [address] [place] [address] [facility] [address] [place] [address] Referral ID Status Reason Start Date Expiration Date V isits Requested Visits Authorized [id number] Authorized 03/01/2020 08/03/2022 99 99 Reason Comments Nutrition Assessment Reason Comments Refill Request Reason Comments Covid19 Concern Reason Comments Follow Up Specialty Diagnoses / Procedures Referred By [facility] Referred To Contact Diagnoses Malignant [...] 30 ML/MIN Serena Carrasco DO [address] [facility] [place] [address] [facility] [address] [place] [address] Reason Comments UTI Frequency, burning x 5 days Reason Comments Results Reason Comments Wellness Reason Comments Patient Question Reason Comments Established Patient Hip Replacement Follow Up Pain Reason Comments Medication Request Reason Comments Appointment DR Bingham Reason Comments New Patient Specialty Diagnoses / Procedures Referred By [facility] Referred To Contact MR IMAGING Diagnoses Malignant neoplasm of overlapping sites of left breast in female, estrogen receptor positive (HCC) 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) Procedures MRI BRAIN WO/W IVCON MRI BRAIN BRAIN STEM W/O W/CONTRAST MATERIAL Serena Carrasco DO [address] [facility] [place] [address] Mr Imaging Referral ID Status Reason Start Date Expiration Date V isits Requested Visits Authorized [id number] Closed Auto-Generate d Referral 07/26/2022 08/25/2023 1 [...] WITHOUT&WITH CONTRAST W/[place] [address] [place] [address] Mr Imaging Referral ID Status Reason Start Date Expiration Date V isits Requested Visits Authorized [id number] Closed Auto-Generate d Referral 08/01/2022 08/31/2023 1 1 Reason Comments Imm/Inj Specialty Diagnoses / Procedures [facility] Referred To Contact Diagnoses Malignant neoplasm of lower-outer quadrant of left breast of female, estrogen receptor positive (HCC) 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) Procedures INJECTION, FULVESTRANT (TEVA) NOT THERAPEUTICALLY EQUIVALENT TO J9395, 25 MG Masci, Serena A, DO [address] [place] [address] [facility] [address] [place] [address] Referral ID Status Reason Start Date Expiration Date V isits Requested Visits Authorized [id number] Authorized 08/03/2022 08/03/2023 16 16 Reason Onset Date Comments SPP Oral Oncology/hematology - Treatment Referra l 08/16/2022 Verzenio Reason Onset Date Comments Refill Request 08/17/2022 Reason Comments AVS 08/16/22 Question Reason Comments Results Mild increase in ser um Cr and BUN Specialty Diagnoses / Procedures [facility] Referred To Contact Diagnoses Malignant neoplasm of lower-outer quadrant of left breast of female, estrogen receptor positive (HCC) 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) Procedures INJECTION, FULVESTRANT (TEVA) NOT THERAPEUTICALLY EQUIVALENT TO J9395, 25 MG Masci, Serena A, DO [address] [place] [address] [facility] [address] [place] [address] Reason Comments Results UA Reason Comments HYDRATION [...] Date Comments Refill Request 11/06/2022 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) Procedures ECG COMPLETE ECG ROUTINE ECG W/LEAST 12 LDS W/I&R Serena Carrasco, DO [address] [place] [address] [facility] [place] [address] [place] [address] Referral ID Status Reason Start Date Expiration Date Visits Requested Visits Authorized [id number] Authorized Auto-Generat ed Referral 11/28/2022 11/28/2023 2 2 Referral ID Status Reason Start Date Expiration Date V isits Requested Visits Authorized [id number] Authorized 03/01/2020 04/07/2023 99 99 Reason Comments [...] 25 MG Serena Carrasco, DO [address] [facility] [place] [address] [facility] [address] [place] [address] Reason Comments 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 Appointment Reason Comments Research CTD CTD Reason Comments Care Coordination Follow Up Note Reason Onset Date Comments Refill Request 05/24/2023 Reason Comments Future Appointment Reason Comments Urinary Problem Possible uti, freque ncy x 1 week Reason Comments PT Eval Specialty Diagnoses / Procedures [facility] Referred To Contact [facility] Diagnoses Malignant neoplasm of lower-outer quadrant of left breast of female, estrogen receptor positive (HCC) 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) Lymphedema of left arm Procedures CONSULT TO LYMPHEDEMA THERAPY OFFICE/OUTPATIENT NEW HIGH MDM 60 MINUTES Serena Carrasco, DO [address] [place] [address] [facility] [place] [address] [place] [address] Referral ID Status Reason Start Date Expiration Date V isits Requested Visits Authorized [id number] Closed Auto-Generate d Referral 06/03/2023 06/02/2024 1 1 Reason Comments Diabetes Reason Comments Established Patient Specialty Diagnoses / Procedures [facility] Referred To Contact Radiology / RADIO PET CT MOBILE TUSTIN Diagnoses Malignant neoplasm of lower-outer quadrant of left breast of female, estrogen receptor positive (HCC) [C50.512, Z17.0] Procedures INJECTION PET CT Serena Carrasco, DO [address] [facility] [address] Mobile [facility] [address] [place] [address] Referral ID Status Reason Start Date Expiration Date Visits Re quested Visits Authorized [id number] Closed 08/12/2023 11/10/2023 1 1 Reason Comments ER F/U High BS readings and UTI Reason Comments Radiology NM Specialty Diagnoses / Procedures [facility] Referred To Contact MOLECULAR & FUNCTIONAL IMAGING Diagnoses Malignant neoplasm of lower-outer quadrant of left breast of female, estrogen receptor positive (HCC) 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) Procedures NM PET/CT SKULL-THIGH SUBSEQUENT PET IMAGING CT ATTENUATION SKULL BASE MID-THIGH Serena Carrasco, DO [address] [place] [address] Molecular & Functional Imaging [address] [place] [address] Referral ID Status Reason Start Date Expiration Date V isits Requested Visits Authorized [id number] Closed Auto-Generate d Referral 08/16/2023 09/14/2023 2 [...] Refill Request 12/11/2023 Reason Comments 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 Reason Comments Pain X6 months Reason Onset Date Comments Refill Request 01/22/2024 Reason Comments Med Change Request Reason Comments type 2 diabetes Specialty Diagnoses / Procedures [facility] Referred To Contact Endocrinology Diagnoses Type 2 diabetes mellitus with other specified complication, without long-term current use of insulin (HCC) Procedures CONSULT TO ENDOCRINOLOGY OFFICE/OUTPATIENT NEW HIGH MDM 60 MINUTES Serena Carrasco, DO [address] [facility] [address] Referral ID Status Reason Start Date Expiration Date V isits Requested Visits Authorized [id number] Closed PCP Requested Referral 01/06/2024 01/05/2025 1 1 Specialty Diagnoses / Procedures Referred By Parmjit cabrera Referred To Contact MR IMAGING Diagnoses Malignant neoplasm of lower-outer quadrant of left breast of female, estrogen receptor positive (HCC) Procedures MRI BREAST WO/W IVCON BILATERAL MRI BREAST WITHOUT&WITH CONTRAST W/[place] [address] [place] [address] [place] [address] Referral ID Status Reason Start Date Expiration Date V isits Requested Visits Authorized [id number] Closed Auto-Generate d Referral 02/05/2024 03/05/2024 1 1 Reason Comments Consult Breast Reconstructio n Reason Comments PHOTOS TAKEN Reason Comments Radiology Mammogram Specialty Diagnoses / Procedures Referred By Parmjit cabrera Referred To Contact BR IMAGING Diagnoses Malignant neoplasm of lower-outer quadrant of left breast of female, estrogen receptor positive (HCC) Procedures [facility] DIAGNOST[facility] RIGHT DIAGNOSTIC MAMMOGRAPHY COMPUTER-[place] [address] [place] [address] [facility] [address] [place] [address] Referral ID Status Reason Start Date Expiration Date V isits Requested Visits Authorized [id number] Closed Auto-Generate d Referral 02/27/2024 03/28/2025 1 [...] MID-THIGH Serena Carrasco DO [address] [place] [address] Molecular & Functional Imaging [address] [place] [address] Referral ID Status Reason Start Date Expiration Date V isits Requested Visits Authorized [id number] Closed Auto-Generate d Referral 01/06/2024 02/04/2025 1 1 Reason Comments Schedule Surgery Specialty Diagnoses / Procedures Referred By Contac t Referred To Contact Diagnoses Malignant neoplasm of left breast in female, estrogen receptor positive, unspecified site of breast (HCC) Serena Carrasco, DO [address] [place] [address] [facility] [address] [place] [address] Referral ID Status Reason Start Date Expiration Date V isits Requested Visits Authorized [id number] Authorized 04/10/2024 07/09/2024 99 99 Reason Comments [...] NM Specialty Diagnoses / Procedures [facility] By [facility] Referred To Contact MOLECULAR & FUNCTIONAL IMAGING Diagnoses Malignant neoplasm of left breast in female, estrogen receptor positive, unspecified site of breast (HCC) 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 lymph node (HCC) Procedures NM PET/CT SKULL-THIGH SUBSEQUENT [facility] ATTENUATION SKULL BASE [employer]-THIGH Serena Carrasco, DO [address] [place] [address] Phone: tel: fax: Molecular Imaging [address] [place] [address] Phone: tel: Referral ID Status Reason Start Date Expiration Date V isits Requested Visits Authorized [id number] Closed Auto-Generate d Referral 04/13/2024 05/13/2025 1 1 Reason Comments Post Op Left Breast Total ca psulectomy and implant removal Reason Comments Orders Reason Comments Radiology US Specialty Diagnoses / Procedures Referred By [facility] Referred To Contact US IMAGING Diagnoses Thyroid nodule Procedures US THYROID/PARATHYROID US SOFT TISSUE HEAD & NECK REAL TIME IMGE DOC Serena Carrasco, DO [address] [place] [address] Phone: tel: fax: [place] [phone] Referral ID Status Reason Start Date Expiration Date V isits Requested Visits Authorized [id number] Closed Auto-Generate d Referral 07/03/2024 08/02/2025 1 [...] ATTENUATION SKULL [employer]IGH Serena Carrasco DO [address] [place] [address] Phone: tel: fax: Molecular Imaging [address] [place] [address] Phone: tel: Referral ID Status Reason Start Date Expiration Date V isits Requested Visits Authorized [id number] Closed Auto-Generate d Referral 07/09/2024 08/08/2025 1 [...] Serena Carrasco, DO [address] [place] [address] Phone: tel: fax: Hematology/Oncology [address] [place] [address] Phone: tel: fax: Referral ID Status Reason Start Date Expiration Date V isits Requested Visits Authorized [id number] Authorized 11/04/2024 02/02/2025 99 99 Goals (unrecognized [...] 1030, Preprocedure 1021 (Given - Provid er: Kayrn Noe RN) ceFAZolin 2 g in dextrose [...] BE BASED ON THE PRIMARY CLINICAL RECORDS. [employer] [facility]. provides no warranty or guarantee of the accuracy or completeness of information in this document.
[2024-11-15 23:36] LABS: Magnesium 1.5 mg/dL (1.5-2.2)
[2024-11-15] MEDS: 0.9% Normal Saline (1000mL) 1,000 ML 999 ML IV (23:57)
[2024-11-16] VITALS (8 sets, daily range): BP systolic 114–137; BP diastolic 67–75; PULSE 88–110; RESP 16–18; TEMP 36.8–39; O2SAT 98–100; BMI 28.4
[2024-11-16] MEDS: 0.9% Normal Saline (1000mL) 1,000 ML 100 ML IV (01:09)
[2024-11-16 06:51] LABS: Hematocrit 25.5 % (37-47); Hemoglobin 8.6 g/dL (12.0-15.0); Immature Granulocytes Count 0.030 X10^3/uL (0.0-0.0); Mean Corp Hgb Conc 33.7 g/dL (32-36); Mean Corpuscular Volume 82.0 fL (81-99); Mean Platelet Vol. 10.9 fl (6.2-12.0); NRBC Flagged by Analyzer 0 % (0-5); Platelet Count 123 K/mm3 (150-450); RBC Distribution Width CV 12.8 % (11.6-14.6); RBC Distribution Width SD 38.8 fl (35.1-43.9); Red Blood Count 3.11 M/mm3 (4.2-5.4); White Blood Count 8.0 K/mm3 (4.4-11.0)
[2024-11-16 07:13] LABS: AST(SGOT) 69 U/L (<=31); Alanine Aminotransfer ALT/SGPT 25 U/L (<=34); Albumin, Serum 3.1 g/dL (3.4-4.8); Alkaline Phosphatase 57 U/L (35-104); Anion Gap 14 (5-15); BUN 42 mg/dL (4-19); BUN/Creat Ratio 13.3 RATIO (10-20); Calcium,Total 7.0 mg/dL (7.6-11.0); Carbon Dioxide 18.6 mmol/L (21.0-32.0); Chloride 101 mmol/L (98-108); Estimated Creatinine Clearance 18.90 ml/min (50-250); Globulin 3.0 g/dL (2.2-4.2); Glucose 75 mg/dL (70-99); Potassium 3.0 mmol/L (3.3-5.1)
--- NOTE | 2024-11-16 09:29 | PCM.PN.HOSP ---
Subjective Subjective Doing well, no issues overnight. Feels better. Objective Data Objective Data Vital Signs: Vital Signs Temp Pulse Resp BP Pulse Ox O2 Del Method 98.9 F 88 18 114/70 98 Room Air 11/16/24 09:26 11/16/24 09:26 11/16/24 09:26 11/16/24 09:26 11/16/24 09:26 11/16/24 09:26 Oxygen Delivery Method Room Air Weight: 176 lb 12.972 oz Body Mass Index (BMI) 28.4 Intake & Output: Intake and Output for Last 24 Hours 11/15/24 11/16/24 11/17/24 03:59 03:59 03:59 Intake Total 2099 / 2099 Output Total 100 / 100 200 / 200 Balance 1999 / 1999 -200 / -200 Lab / Micro Data 11/16/24 05:35 11/16/24 05:35 Labs: Laboratory Results - last 24 hr 11/15/24 18:47: WBC 12.9 H, RBC 3.28 L, Hgb 9.2 L, Hct 26.9 L, MCV 82.0, MCH 28.0, MCHC 34.2, RDW Std Deviation 39.1, RDW Coeff of Rosie 13.0, Plt Count 135 L, MPV 10.0, Immature Gran % (Auto) 0.300, Neut % (Auto) 86.5 H, Lymph % (Auto) 8.9 L, [place] % (Auto) 4.2, Eos % (Auto) 0.0, Baso % (Auto) 0.1, Absolute Neuts (auto) 11.1 H, Absolute Lymphs (auto) 1.15, Nucleated RBC % 0, Sodium 130 L, Potassium 2.8 L, Chloride 93 L, Carbon Dioxide 22.6, Anion Gap 14, BUN 45 H, Creatinine 3.18 H, Estim Creat Clear Calc 18.75 L, Est GFR (MDRD) Non-Af 16 L, BUN/Creatinine Ratio 14.1, Glucose 123 H, Calcium 7.7, Phosphorus 2.7, Magnesium 1.5 11/15/24 19:12: Urine Color Yellow, Urine Clarity Sl. Cloudy, Urine pH 5.0, Ur Specific [place] 1.010, Urine Protein 100 H, Urine Glucose (UA) Normal, Urine Ketones Negative, Urine Occult Blood 250 H, Urine Nitrite Negative, Urine Bilirubin Negative, Urine Urobilinogen Normal, Ur Leukocyte Esterase 500 H, Urine RBC 0-5 SEEN, Urine WBC >100 SEEN, Ur Squamous Epith Cells 0 SEEN, Ur Transition Epith Cell 0-5 SEEN, Ur Renal Epithelial Cell 0-5 SEEN, Urine Bacteria 2+, Urine Mucus 0 SEEN 11/16/24 05:35: WBC 8.0, RBC 3.11 L, Hgb 8.6 L, Hct 25.5 L, MCV 82.0, MCH 27.7, MCHC 33.7, RDW Std Deviation 38.8, RDW Coeff of Rosie 12.8, Plt Count 123 L, MPV 10.9, Immature Gran % (Auto) 0.400, Neut % (Auto) 83.6 H, Lymph % (Auto) 9.0 L, [place] % (Auto) 6.9, Eos % (Auto) 0.0, Baso % (Auto) 0.1, Absolute Neuts (auto) 6.7, Absolute Lymphs (auto) 0.72 L, Nucleated RBC % 0, Sodium 134, Potassium 3.0 L, Chloride 101, Carbon Dioxide 18.6 L, Anion Gap 14, BUN 42 H, Creatinine 3.17 H, Estim Creat Clear Calc 18.90 L, Est GFR (MDRD) Non-Af 16 L, BUN/Creatinine Ratio 13.3, Glucose 75, Calcium 7.0 L, Total Bilirubin 0.21, AST 69 H, ALT 25, Alkaline Phosphatase 57, Total Protein 6.1, Albumin 3.1 L, Globulin 3.0, Albumin/Globulin Ratio 1.0 11/16/24 06:27: POC Glucose 66 L 11/16/24 07:33: POC Glucose 133 H Micro: Microbiology 11/15/24 19:12 Mucosa - Nose SARS-CoV-2, Influenza & RSV (PCR) - Final Physical Exam Narrative General: Alert, Oriented x3, Cooperative, No apparent distress HEENT: Atraumatic, PERRLA, EOMI, Normocephalic Oral: Moist Mucosa Neck: Supple, No JVD Lungs: Clear to auscultation, Normal air movement, No rhonchi, No wheeze, No rales Cardiovascular: Regular rate, Regular Rhythm, Normal S1, Normal S2, No murmurs Abdomen: Soft, Non Tender, Non-Distended, No Hepato-splenomegaly Extremities: No edema Skin: No rashes, No breakdown Musculoskeletal: No Tenderness to Palpation of Joints or Extremities Neurological: No focal neurological deficits, Motor Exam 5/5 strength throughout, Sensory exam intact to light touch and pain Psych/Mental Status: Normal Affect, Appropriate Assessment & Plan Assessment/Plan (1) Urinary tract infection: PLAN: Plan 1. Acute UTI with LAXMI ? Urine and blood cultures are pending ? Continue with Rocephin ? Continue with IV fluids ? Creatinine is 3.1 today we will monitor as her baseline is around 1 ? She says diarrhea is improving however a C. difficile test is pending though unclear if she has been able to give a sample yet likely indicating that she does not have C. difficile ? Hypokalemia, will replace 2. Anemia and thrombocytopenia in the setting of metastatic breast cancer/anxiety ? Continue with chemotherapy ? She follows with [facility] oncology ? Continue with low-dose Ativan as needed 3. Essential HTN/HLD ? Blood pressures are stable ? Resume her home blood pressure medications ? Will monitor and make adjustments as necessary 4. DM2 ? Continue with her insulin and sliding scale ? Accu-Cheks ACHS ? Will monitor and make adjustments as necessary 5. GERD ? Stable ? Continue with PPI 6. Primary biliary cirrhosis ? Follows outpatient with GI ? Continue with ursodiol DVT: Heparin Charges/Coding Visit Charges Inpatient E&M: 72346 Subs Hosp L2
[2024-11-16] MEDS: Heparin Injection (Vial) 5,000 UNIT/ML VIAL 5000 UNIT SC ×2 (09:30→22:31)
[2024-11-16] MEDS: Insulin Glargine-YFGN 100 UNIT/ML Pen 20 UNIT SC (09:31)
[2024-11-16] MEDS: Potassium Chloride Oral Tablet 20 MEQ 40 MEQ PO (10:40)
--- NOTE | 2024-11-16 12:15 | CASEMGMT ---
FE MONTGOMERY Assessment Face to Face with patient for initial transition planning/care coordination assessment. FE MONTGOMERY introduced self and role at [facility], pt voices understanding. Pt is A&Ox4 and is resting comfortably in bed and is calm. Care providers, pharmacy, and demographics verified. Admitting dx: UTI, LAXMI LACE Strata: 3 PCP: Asha Pratt Specialists: Corwin (Oncology), Raul (Nephro) Preferred Pharmacy: [facility] Insurance: MCR A/B, [employer] MCR Supp Plan G Prescription Benefit: Yes LNOK: Kam (H) Living Arrangements: Pt lives with her in a 2 story home with 2 steps to enter ADLs/IADLs: Indep. 6-Click score is 24 Transportation: Self, DME: [facility] with sufficient supplies including lancets, test strips, pen needles, and EtOH swabs. BP Machine HHC/SNF: Denies hx or needs Pt?s goal: Home Plan: Home with pt's , anticipate no additional needs. Pt states that she feels safe returning home with her SO and denies the need for any additional therapy, resources, or needs. Report given to GALA MIRAMONTES CM. Mark Anthony Haque RN, CM
[2024-11-16] MEDS: 0.9% Saline Lock 10 ML Syringe IV (22:34)
[2024-11-17] VITALS (7 sets, daily range): BP systolic 123–134; BP diastolic 71–87; PULSE 85–105; RESP 16–18; TEMP 36.7–38.3; O2SAT 95–100; BMI 28.9
[2024-11-17 06:04] LABS: Hematocrit 24.2 % (37-47); Hemoglobin 8.3 g/dL (12.0-15.0); Immature Granulocytes Count 0.040 X10^3/uL (0.0-0.0); Mean Corp Hgb Conc 34.3 g/dL (32-36); Mean Corpuscular Volume 81.8 fL (81-99); Mean Platelet Vol. 11.0 fl (6.2-12.0); NRBC Flagged by Analyzer 0 % (0-5); Platelet Count 119 K/mm3 (150-450); RBC Distribution Width CV 12.8 % (11.6-14.6); RBC Distribution Width SD 38.8 fl (35.1-43.9); Red Blood Count 2.96 M/mm3 (4.2-5.4); White Blood Count 5.5 K/mm3 (4.4-11.0)
[2024-11-17 06:28] LABS: Anion Gap 15 (5-15); BUN 39 mg/dL (4-19); BUN/Creat Ratio 12.3 RATIO (10-20); Calcium,Total 7.3 mg/dL (7.6-11.0); Carbon Dioxide 18.0 mmol/L (21.0-32.0); Chloride 100 mmol/L (98-108); Estimated Creatinine Clearance 19.05 ml/min (50-250); Glucose 78 mg/dL (70-99); Magnesium 1.7 mg/dL (1.5-2.2); Potassium 2.9 mmol/L (3.3-5.1)
[2024-11-17 08:16] LABS: Ferritin 520 ng/mL (22-378); Iron 12 ug/dL (50-170); Iron Binding Capacity,Unsat 210 ug/dL (228-428)
[2024-11-17 08:18] LABS: Iron Binding Capacity,Total 222 ug/dL (250-450)
--- NOTE | 2024-11-17 08:59 | PCM.PN.HOSP ---
Subjective Subjective Doing well today, no issues overnight. Hemoglobin did drop again unclear as to the etiology Objective Data Objective Data Vital Signs: Vital Signs Temp Pulse Resp BP Pulse Ox O2 Del Method 98.1 F 88 16 134/84 H 100 Room Air 11/17/24 08:56 11/17/24 08:56 11/17/24 08:56 11/17/24 08:56 11/17/24 08:56 11/17/24 08:56 Oxygen Delivery Method Room Air Weight: 179 lb 14.355 oz Body Mass Index (BMI) 28.9 Intake & Output: Intake and Output for Last 24 Hours 11/16/24 11/17/24 11/18/24 03:59 03:59 03:59 Intake Total 2100 / 2100 1050 / 1050 Output Total 100 / 100 950 / 950 Balance 1999 / 1999 100 / 100 Lab / Micro Data 11/17/24 04:43 11/17/24 04:43 Labs: Laboratory Results - last 24 hr 11/16/24 11:23: POC Glucose 109 H 11/16/24 17:12: POC Glucose 96 11/16/24 22:41: POC Glucose 108 H 11/17/24 04:43: WBC 5.5, RBC 2.96 L, Hgb 8.3 L, Hct 24.2 L, MCV 81.8, MCH 28.0, MCHC 34.3, RDW Std Deviation 38.8, RDW Coeff of Rosie 12.8, Plt Count 119 L, MPV 11.0, Immature Gran % (Auto) 0.700, Neut % (Auto) 73.7 H, Lymph % (Auto) 14.6 L, [place] % (Auto) 10.6 H, Eos % (Auto) 0.2, Baso % (Auto) 0.2, Absolute Neuts (auto) 4.1, Absolute Lymphs (auto) 0.81 L, Nucleated RBC % 0, Sodium 133, Potassium 2.9 L, Chloride 100, Carbon Dioxide 18.0 L, Anion Gap 15, BUN 39 H, Creatinine 3.17 H, Estim Creat Clear Calc 19.05 L, Est GFR (MDRD) Non-Af 16 L, BUN/Creatinine Ratio 12.3, Glucose 78, Calcium 7.3 L, Phosphorus 2.2 L, Magnesium 1.7, Iron 12 L, TIBC 222 L, Iron Saturation 5.4 L, Unsaturated IBC 210 L, Ferritin 520 H 11/17/24 06:49: POC Glucose 78 Micro: Microbiology 11/15/24 19:12 Urine, Clean Catch Urine Culture - Final Escherichia coli Gram negative jessie 11/15/24 19:12 Mucosa - Nose SARS-CoV-2, Influenza & RSV (PCR) - Final Physical Exam Narrative General: Alert, Oriented x3, Cooperative, No apparent distress HEENT: Atraumatic, PERRLA, EOMI, Normocephalic Oral: Moist Mucosa Neck: Supple, No JVD Lungs: Clear to auscultation, Normal air movement, No rhonchi, No wheeze, No rales Cardiovascular: Regular rate, Regular Rhythm, Normal S1, Normal S2, No murmurs Abdomen: Soft, Non Tender, Non-Distended, No Hepato-splenomegaly Extremities: No edema Skin: No rashes, No breakdown Musculoskeletal: No Tenderness to Palpation of Joints or Extremities Neurological: No focal neurological deficits, Motor Exam 5/5 strength throughout, Sensory exam intact to light touch and pain Psych/Mental Status: Normal Affect, Appropriate Assessment & Plan Assessment/Plan (1) Urinary tract infection: PLAN: Plan 1. Acute UTI due to E. coli with LAXMI ? Urine urine cultures with an intermediately resistant E. coli, blood cultures are pending ? Continue with Rocephin ? Continue with IV fluids ? Creatinine is 3.1 today, will obtain urine studies and consult nephrology ?She has not had a bowel movement since admission therefore we will discontinue C. difficile testing le ? Hypokalemia, will replace 2. Anemia and thrombocytopenia in the setting of metastatic breast cancer/anxiety ? Continue with chemotherapy ? She follows with [facility] oncology ? Iron studies demonstrate a mixed picture, given chemotherapy and likely nutritional deficiency may benefit from iron supplementation. ? Fecal occult is pending ? Continue with low-dose Ativan as needed 3. Essential HTN/HLD ? Blood pressures are stable ? Resume her home blood pressure medications ? Will monitor and make adjustments as necessary 4. DM2 ? Continue with her insulin and sliding scale ? Accu-Cheks ACHS ? Will monitor and make adjustments as necessary 5. GERD ? Stable ? Continue with PPI 6. Primary biliary cirrhosis ? Follows outpatient with GI ? Continue with ursodiol DVT: Heparin Charges/Coding Visit Charges Inpatient E&M: 75492 Subs Hosp L2
[2024-11-17] MEDS: Potassium Phosphate 21 MM in 0.9% Normal Saline (250mL Bag) 250 ML 84 MM IV (09:33)
[2024-11-17] MEDS: Insulin Glargine-YFGN 100 UNIT/ML Pen 20 UNIT SC (09:33)
[2024-11-17] MEDS: 0.9% Normal Saline (1000mL) 1,000 ML 100 ML IV (09:33)
[2024-11-17] MEDS: Heparin Injection (Vial) 5,000 UNIT/ML VIAL 5000 UNIT SC ×2 (09:35→22:09)
[2024-11-17 11:04] LABS: Creatinine, Urine (random) 85.60 mg/dL (28.00-217.00)
--- NOTE | 2024-11-17 14:48 | US_ITS ---
PROCEDURE: KIDNEY AND BLADDER 11/17/2024 REASON FOR EXAM: LAXMI TECHNIQUE: KIDNEY AND BLADDER COMPARISON: Ultrasound abdomen 03/24/2024. FINDINGS: Kidneys: Normal renal sizes, parenchymal thicknesses, and echotextures. Bilateral ureteral jets are not visualized. [place]: No hydronephrosis visualized. Cysts or Masses: No cysts or large solid renal masses. Other: There is hyperechoic structure within right midpole with posterior acoustic shadowing measuring 1.1 x 0.3 x 0.7 cm likely representing nonobstructing renal calculus RIGHT Kidney Size: 10.8 x 4.5 x 4.8 Volume: 122.6 mL Parenchymal Thickness: 19 mm (>14mm is normal) Cortical Thickness (if discernible): 10 (>6mm is normal) LEFT Kidney Size: 10.9 x 5.2 x 4.7 Volume: 140.9 mL Parenchymal Thickness: 16 mm (>14mm is normal) Cortical Thickness (if discernible): 10 (>6mm is normal) Bladder: Bladder is distended with anechoic urine with volume of 19.7 mL and wall thickness of 0.2 cm without any sonographic evidence of any mass. US/Kidney and Bladder IMPRESSION: 1. Nonobstructing right midpole renal calculus measuring 1 cm. 2. No hydronephrosis is visualized in bilateral kidneys. Reading Location: [id number]
--- NOTE | 2024-11-17 15:58 | NURSING ---
pt is off unit for testing
--- NOTE | 2024-11-17 16:08 | PCM.CONS.R ---
Assessment & Plan Assessment/Plan (1) Acute kidney injury: PLAN: Creatinine 0.8 in Dec 2023, progressed to 1.09 on 08/04/24, 1.47 eGFR 39cc/min on 09/01/24 to 1.96 on 09/22/24. Creatinine 1.86 eGFR 30cc/min on 10/27/24. She has been on ARB therapy with HCTZ. Doses decreased in office on initial visit 10/28/24. Creatinine 3.1 eGFR 16cc/min on admit. BP low on admit improved with iv hydration. She may have ATN from prolonged hypotension at home prior to admit vs AIN from infection vs multiple antibx therapy for UTI. She received zometa on 11/10 where biphosphonates can cause LAXMI. Aromasin and Everolimus can also increased creatinine level. Discussed with pt possible kidney biopsy if renal fxn does not improve to evaluate for AIN. Hx proteinuria that can be caused by chemotherapy agents, hypokalemia. 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 Check renal US, VINCENZO, ANCA for microscopic hematuria. DW hospitalist, nursing staff, pt and pt spouse. (2) Hypokalemia: PLAN: likely due to HCTZ, poor intake, diarrhea, chemotherapy. Potassium 2.9 phos 2.2 replaced with Kphos (3) Urinary tract infection: PLAN: on ceftriaxone (4) HTN (hypertension): QUALIFIERS: Hypertension type: primary hypertension Qualified Code(s): I10 - Essential (primary) hypertension PLAN: hold BP meds (5) History of chemotherapy: PLAN: both aromasin and everolimus can increase serum creatinine. Consider reducing dose due to rising creatinine. Defer to oncology (6) Type 2 diabetes mellitus with hyperglycemia: PLAN: chemotherapy induced on insulin (7) Breast cancer metastasized to axillary lymph node: QUALIFIERS: Laterality: left Qualified Code(s): C50.912 - Malignant neoplasm of unspecified site of left female breast; C77.3 - Secondary and unspecified malignant neoplasm of axilla and upper limb lymph nodes (8) Iron deficiency anemia: PLAN: would benefit from iv iron therapy hgb 8.3g iron level 12 (9) Hypocalcemia: PLAN: s/p zometa dose on 11/09/24 HPI Consult Data Date of Consult: 11/18/24 HPI Narrative Reason for Consultation: LAXMI on CKD stage 3B HPI Narrative: PAT SORTO, is a 64 F who presents with LAXMI, hypotension improved with iv fluids. Creatinine 1.89 eGFR 30cc/min on 11/08/24. [place] weak, sleepy, blurred vision, poor appetite, nausea, muscle cramps on Saturday11/13/24 after traveling to [place] last Saturday, gave 4 golf lessons in the heat Saturday. She had some chills, diarrhea watery then with mucous since last dose of Mounjaro 1 week ago. Urine output decreased over weekend. She was treated with multiple antibx for Ecoli UTI past month. She was on Losartan and HCTZ along with amlodipine and metoprolol for hypertension. BP low on admit received iv fluids. Denied nausea, vomiting currently, no tremor. She is on Aromasin and Everolimus for breast cancer. She received zometa on 11/09/24 as outpt. Recent PET scan a month ago was stable per pt. She had lymphedema study on 11/10/24 with indocyanine green dye for chronic lymphedema on LUE. Denies chest pain, shortness of breath. She has drug induced diabetes on insulin and mounjaro. [facility], LAT[facility] Medical History History of removal of left breast implant (05/18/24) Acute kidney injury Chemotherapy induced cardiomyopathy Malignant neoplasm of lower-outer quadrant of left breast of female, estrogen receptor positive Type 2 diabetes mellitus with hyperglycemia Primary biliary cirrhosis History of chemotherapy Breast cancer Abnormal mammogram of left breast HTN (hypertension) Home Medications ?Medication ?Instructions ?Recorded ?Last Taken ?Type ascorbic acid (vitamin C) 100 mg 500 mg PO QDAY 03/29/17 05/20/24 History tablet vitamin E (dl, acetate) 45 mg (100 400 unit PO QDAY 03/29/17 05/20/24 History unit) capsule aspirin 81 mg chewable tablet 81 mg PO ONCE 04/04/17 05/20/24 History cyanocobalamin (vitamin B-12) 1,000 mcg PO DAILY 04/23/17 05/20/24 History 1,000 mcg capsule ergocalciferol (vitamin D2) 1,250 50,000 unit PO QWEEK 09/03/23 Unknown History mcg (50,000 unit) capsule (Vitamin D2) everolimus (antineoplastic) 10 mg 10 mg PO DAILY 09/03/23 05/20/24 History tablet exemestane 25 mg tablet 25 mg PO DAILY 09/03/23 05/20/24 History lorazepam 0.5 mg tablet 0.5 mg PO TID PRN anxiety 09/03/23 Unknown History pantoprazole 40 mg tablet,delayed 40 mg PO DAILY 09/03/23 05/20/24 History release calcium carbonate 1,000 mg PO DAILY 10/09/23 Unknown History amlodipine 5 mg tablet 5 mg PO QDAY #90 tabs 07/02/24 Unknown Rx insulin glargine 100 unit/mL (3 20 unit subcut QAM 07/02/24 Unknown History mL) subcutaneous pen (Lantus Solostar U-100 Insulin) metoprolol succinate 25 mg 25 mg PO QDAY 07/02/24 Unknown History tablet,extended release 24 hr ursodiol 500 mg tablet (DARRELL Forte) 1,250 mg PO QDAY 07/02/24 Unknown History hydrochlorothiazide 12.5 mg tablet 12.5 mg PO QDAY 11/02/24 Unknown History losartan 25 mg tablet 50 mg PO DAILY 11/15/24 Unknown History tirzepatide 2.5 mg/0.5 mL 2.5 mg subcut QWEEK 11/15/24 Unknown History subcutaneous pen injector (Mounjaro) trazodone 50 mg tablet 50 mg PO QHS 11/15/24 Unknown History Allergy/AdvReac Type Severity Reaction Status Date / Time No Known Allergies Allergy Verified 11/02/24 11:11 Family History Mother Diabetes Heart disease Hypertension CVA (cerebral vascular accident) Father Diabetes Hypertension Surgical History Hx of total mastectomy of left breast S/P breast biopsy S/P total knee replacement History of section Social History household members: spouse Smoking Status: Never smoker alcohol intake: current alcohol intake frequency: 0-2 drinks per day substance use type: does not use ROS Constitutional Constitutional: Reports chills and weakness; Denies fever(s) Eyes Eyes: Reports blurry vision ENT HEENT: Reports dry mouth Cardiovascular Cardiovascular: Denies chest pain, diaphoresis, dyspnea on exertion, leg edema or syncope Respiratory/Chest Respiratory/Chest: Denies dry cough, dyspnea on exertion, hemoptysis or shortness of breath at rest Gastrointestinal Gastrointestinal: Reports anorexia, diarrhea and nausea; Denies abdominal pain, hematemesis, hematochezia, melena or vomiting Genitourinary Genitourinary: Reports change in urinary stream and oliguria; Denies dysuria or hematuria Musculoskeletal Musculoskeletal: Reports muscle cramps Integumentary Integumentary: Denies rash Neurologic Neurologic: Reports weakness; Denies abnormal gait, focal weakness or tremor(s) Endocrine Endocrinology: Reports fatigue Hematologic/Lymphatic Hematologic/Lymphatic: Reports anemia Physical Exam Const alert and oriented x3 General Appearance: well developed Eyes EOMs intact bilaterally Resp clear to auscultation bilaterally Cardio regular rate, no murmurs and no rub GI non-tender and non-distended Auscultation: normoactive bowel sounds Palpation: soft Extremity no clubbing, cyanosis or edema Extremity Narrative: LUE lymphedema Lab / Micro Data 11/18/24 05:18 11/18/24 05:18 Labs: Laboratory Results - last 24 hr 11/16/24 17:12: POC Glucose 96 11/16/24 22:41: POC Glucose 108 H 11/17/24 04:43: WBC 5.5, RBC 2.96 L, Hgb 8.3 L, Hct 24.2 L, MCV 81.8, MCH 28.0, MCHC 34.3, RDW Std Deviation 38.8, RDW Coeff of Rosie 12.8, Plt Count 119 L, MPV 11.0, Immature Gran % (Auto) 0.700, Neut % (Auto) 73.7 H, Lymph % (Auto) 14.6 L, [place] % (Auto) 10.6 H, Eos % (Auto) 0.2, Baso % (Auto) 0.2, Absolute Neuts (auto) 4.1, Absolute Lymphs (auto) 0.81 L, Nucleated RBC % 0, Sodium 133, Potassium 2.9 L, Chloride 100, Carbon Dioxide 18.0 L, Anion Gap 15, BUN 39 H, Creatinine 3.17 H, Estim Creat Clear Calc 19.05 L, Est GFR (MDRD) Non-Af 16 L, BUN/Creatinine Ratio 12.3, Glucose 78, Calcium 7.3 L, Phosphorus 2.2 L, Magnesium 1.7, Iron 12 L, TIBC 222 L, Iron Saturation 5.4 L, Unsaturated IBC 210 L, Ferritin 520 H 11/17/24 06:49: POC Glucose 78 11/17/24 10:15: Ur Random Sodium 77, Urine Creatinine 85.60, Urine Potassium 25.0, Urine Chloride 82 11/17/24 11:17: POC Glucose 156 H Micro: Microbiology 11/17/24 10:00 Stool Stool Occult Blood ([place]) - Final 11/15/24 19:12 Urine, Clean Catch Urine Culture - Final Escherichia coli Gram negative jsesie Imaging Radiology Impression Renal Ultrasound 11/17/24 14:48 IMPRESSION: 1. Nonobstructing right midpole renal calculus measuring 1 cm. 2. No hydronephrosis is visualized in bilateral kidneys. Reading Location: [id number]
[2024-11-17 22:00] LABS: Creatinine, Urine (random) 88.30 mg/dL (28.00-217.00); Protein, Urine (Random) 62.6 mg/dL (0.0-12.0); Protein:Creat Ratio 709 mg/g CRE (0-200)
[2024-11-18] MEDS: 0.9% Normal Saline (1000mL) 1,000 ML 100 ML IV (02:04)
[2024-11-18 02:07] VITALS: BP 140/86; PULSE 80; RESP 16; TEMP 36.9; O2SAT 97
[2024-11-18 06:00] VITALS: BMI 29.0
[2024-11-18 06:29] LABS: Hematocrit 23.0 % (37-47); Hemoglobin 7.9 g/dL (12.0-15.0); Immature Granulocytes Count 0.020 X10^3/uL (0.0-0.0); Mean Corp Hgb Conc 34.3 g/dL (32-36); Mean Corpuscular Volume 80.4 fL (81-99); Mean Platelet Vol. 11.3 fl (6.2-12.0); NRBC Flagged by Analyzer 0 % (0-5); Platelet Count 113 K/mm3 (150-450); RBC Distribution Width CV 12.8 % (11.6-14.6); RBC Distribution Width SD 37.3 fl (35.1-43.9); Red Blood Count 2.86 M/mm3 (4.2-5.4); White Blood Count 5.7 K/mm3 (4.4-11.0)
[2024-11-18 06:38] LABS: Anion Gap 15 (5-15); BUN 35 mg/dL (4-19); BUN/Creat Ratio 11.5 RATIO (10-20); Calcium,Total 7.3 mg/dL (7.6-11.0); Carbon Dioxide 19.2 mmol/L (21.0-32.0); Chloride 103 mmol/L (98-108); Estimated Creatinine Clearance 19.74 ml/min (50-250); Glucose 87 mg/dL (70-99); Potassium 3.0 mmol/L (3.3-5.1)
[2024-11-18 08:00] VITALS: BP 123/75; PULSE 85; RESP 18; TEMP 37.2; O2SAT 98
--- NOTE | 2024-11-18 08:13 | NURSING ---
iron not on unit for pt scheduled 0800 infusion
[2024-11-18 08:30] LABS: Immature Platelet Fraction 3.4 % (1.0-7.9); Immature Reticulocyte Fraction 6.20 % (3.00-15.90); Platelet Count 115 K/mm3 (150-450); Reticulocyte Count 1.12 % (0.5-1.5)
[2024-11-18] MEDS: Sodium Ferric Gluconat/Sucrose 250 MG in 0.9% Normal Saline (250mL Bag) 250 ML 135 MG IV (08:34)
[2024-11-18] MEDS: Potassium Chloride Oral Tablet 20 MEQ 40 MEQ PO (08:34)
--- NOTE | 2024-11-18 09:12 | NURSING ---
pt received pureed pancake and she will not eat it, also did not receive her vanilla creamer-they acknowledged and said they will send up
[2024-11-18 09:44] LABS: CRP 176.00 mg/L (0.0-3.0)
[2024-11-18 10:25] VITALS: PULSE 85
[2024-11-18] MEDS: Heparin Injection (Vial) 5,000 UNIT/ML VIAL 5000 UNIT SC (11:13)
[2024-11-18] MEDS: Insulin Glargine-YFGN 100 UNIT/ML Pen 20 UNIT SC (11:13)
--- NOTE | 2024-11-18 12:10 | PCM.DC ---
Discharge Instructions DC O2, CPAP, BIPAP needs Home O2 Discharge instructions: No Dressing / Incision Discharge Activity: Return to Normal Activity Dressing / Incision Call your doctor if you observe: Fever of 101 or Higher, Shortness of breath, Dizziness, Fainting spells, Swelling in the ankles, Chest pain and Increased palpitations (irregular heartbeat) Follow Up Care Test Results: Test results from this visit will be discussed in further detail at your follow-up appointment, if applicable. Discharge Plan Admission Admit Date/Time: 11/15/24 22:14 Attending Provider: William Minaya Primary Care Provider: Asha Pratt Consulting Providers: Meri Vu; Annabel Carter Instructions Additional Instructions / Restrictions: I discussed your case with your oncologist, he feels that you would be able to hold your everolimus and exemestane for a week or 2 while you are in [facility] to allow time for your kidneys to recover. I discontinued all of your blood pressure medications except for your amlodipine. I do recommend that you follow-up with your PCP when you return from [facility] to see if any further adjustments need to be made. I gave you 10 days worth of cefdinir 300 mg p.o. daily this antibiotic is dose adjusted because of your kidney disease. Please take 5 tablets and then take the remainder with you to [facility] in case you develop symptoms of a UTI while there. Discharge Orders/Prescriptions Prescriptions: New cefdinir 300 mg capsule 300 mg PO DAILY 10 Days Qty: 10 0RF Rx Instructions: Take 5 days tablet. Keep 5 tablets for when you go to [facility] incase you develop a recurrent infection Continued aspirin 81 mg tablet,chewable 81 mg PO ONCE vitamin E (dl, acetate) 100 unit capsule 400 unit PO QDAY ascorbic acid (vitamin C) 100 mg tablet 500 mg PO QDAY ursodiol [DARRELL Forte] 500 mg tablet 1,250 mg PO QDAY lorazepam 0.5 mg tablet 0.5 mg PO TID PRN (Reason: anxiety) exemestane 25 mg tablet 25 mg PO DAILY everolimus (antineoplastic) 10 mg tablet 10 mg PO DAILY pantoprazole 40 mg tablet,delayed release (DR/EC) 40 mg PO DAILY calcium carbonate 500 mg calcium (1,250 mg) tablet 1,000 mg PO DAILY insulin glargine [Lantus Solostar U-100 Insulin] 100 unit/mL (3 mL) insulin pen 20 unit subcut QAM amlodipine 5 mg tablet 5 mg PO QDAY Qty: 90 3RF cyanocobalamin (vitamin B-12) 1,000 MCG capsule 1,000 mcg PO DAILY ergocalciferol (vitamin D2) [Vitamin D2] 1,250 mcg (50,000 unit) capsule 50,000 unit PO QWEEK trazodone 50 mg tablet 50 mg PO QHS Mounjaro 2.5 mg/0.5 mL pen injector 2.5 mg subcut QWEEK Discontinued metoprolol succinate 25 mg tablet extended release 24 hr 25 mg PO QDAY hydrochlorothiazide 12.5 mg tablet 12.5 mg PO QDAY losartan 25 mg tablet 50 mg PO DAILY Referrals / Follow Up: Asha Pratt MD [Primary Care Provider] - Alan Olivia DO [Med Staff - Active Staff] - Within 1 Week Disposition Disposition (needs filled in before D/C Order can be placed): Home, Self Care
--- NOTE | 2024-11-18 12:22 | PCM.PN.REN ---
Subjective Subjective Creatinine slightly improved today at 3.0. BP stable. No uremic symptoms. Urine output good Objective Data Objective Data Vital Signs: Vital Signs Temp Pulse Resp BP Pulse Ox O2 Del Method O2 Flow Rate 99.0 F 85 18 123/75 H 98 Nasal Cannula 2 11/18/24 08:00 11/18/24 10:25 11/18/24 08:00 11/18/24 08:00 11/18/24 08:00 11/18/24 08:00 11/18/24 08:00 Oxygen Flow Rate (L/min) 2 Oxygen Delivery Method Nasal Cannula Weight: 82.1 kg Body Mass Index (BMI) 29.0 Intake & Output: Intake and Output for Last 24 Hours 11/16/24 11/17/24 11/18/24 23:59 23:59 23:59 Intake Total 2050 / 2050 1795 / 1795 455 / 455 Output Total 1050 / 1050 1000 / 1000 Balance 1000 / 1000 795 / 795 455 / 455 Lab / Micro Data 11/18/24 05:18 11/18/24 05:18 Labs: Laboratory Results - last 24 hr 11/17/24 10:15: U Random Total Protein 62.6 H, Urine Creatinine 88.30, Protein/Creatinin Ratio 709 H 11/17/24 16:09: ROS-1 Antibody TNP, Sm (Beckham) Antibody TNP, FRONT OF HOUSE MANAGER Antibody TNP, Scl-70 Scleroderma Ab TNP, Antichromatin Antibodies TNP, Centromere B Antibody TNP 11/17/24 22:18: POC Glucose 115 H 11/18/24 05:18: WBC 5.7, RBC 2.86 L, Hgb 7.9 L, Hct 23.0 L, MCV 80.4 L, MCH 27.6, MCHC 34.3, RDW Std Deviation 37.3, RDW Coeff of Rosie 12.8, Plt Count 113 L, MPV 11.3, Immature Gran % (Auto) 0.300, Neut % (Auto) 67.2, Lymph % (Auto) 18.5 L, Alfalfa % (Auto) 13.5 H, Eos % (Auto) 0.2, Baso % (Auto) 0.3, Absolute Neuts (auto) 3.8, Absolute Lymphs (auto) 1.06, Nucleated RBC % 0, Immature Plt Fraction 3.4, Retic Count 1.12, Immature Retic Fraction 6.20, Retic Hgb Equivalent 24.7 L, Sodium 137, Potassium 3.0 L, Chloride 103, Carbon Dioxide 19.2 L, Anion Gap 15, BUN 35 H, Creatinine 3.06 H, Estim Creat Clear Calc 19.74 L, Est GFR (MDRD) Non-Af 16 L, BUN/Creatinine Ratio 11.5, Glucose 87, Calcium 7.3 L, C-React Prot Ext Range 176.00 H 11/18/24 06:45: POC Glucose 87 11/18/24 11:32: POC Glucose 141 H Micro: Microbiology 11/15/24 22:38 Blood Culture (Wb) - Anticubital Right Blood Culture - Preliminary No growth in 48 hours. 11/15/24 22:38 Blood Culture (Wb) - Right Hand Blood Culture - Preliminary No growth in 48 hours. 11/17/24 10:00 Stool Stool Occult Blood (ISRA[place]) - Final 11/15/24 19:12 Urine, Clean Catch Urine Culture - Final Escherichia coli Gram negative jessie 11/15/24 19:12 Mucosa - Nose SARS-CoV-2, Influenza & RSV (PCR) - Final Radiography Diagnostic Testing: Radiology Impression Renal Ultrasound 11/17/24 14:48 IMPRESSION: 1. Nonobstructing right midpole renal calculus measuring 1 cm. 2. No hydronephrosis is visualized in bilateral kidneys. Reading Location: [facility] Physical Exam Const alert and oriented x3 Resp clear to auscultation bilaterally Cardio regular rate GI non-tender and non-distended Auscultation: normoactive bowel sounds Palpation: soft Extremity Extremity Narrative: lymphedema LUE Skin no rashes or lesions noted Neuro CN's II-XII intact bilaterally Psych cooperative Assessment & Plan Assessment/Plan (1) Acute kidney injury: PLAN: Creatinine 0.8 in Dec 2023, progressed to 1.09 on 08/04/24, 1.47 eGFR 39cc/min on 09/01/24 to 1.96 on 09/22/24. Creatinine 1.86 eGFR 30cc/min on 10/27/24. Creatinine improved slightly to 3.0. UOP good. Continue to hold ARB, HCTZ. Check labs later this week. DW hospitalist (2) Hypokalemia: PLAN: likely due to HCTZ, poor intake, diarrhea, chemotherapy. Potassium 3.0 (3) Urinary tract infection: (4) HTN (hypertension): QUALIFIERS: Hypertension type: primary hypertension Qualified Code(s): I10 - Essential (primary) hypertension PLAN: hold BP meds, resume amlodipine if needed (5) History of chemotherapy: PLAN: both aromasin and everolimus can increase serum creatinine. Consider reducing dose due to rising creatinine. Defer to oncology (6) Type 2 diabetes mellitus with hyperglycemia: PLAN: chemotherapy induced on insulin (7) Breast cancer metastasized to axillary lymph node: QUALIFIERS: Laterality: left Qualified Code(s): C50.912 - Malignant neoplasm of unspecified site of left female breast; C77.3 - Secondary and unspecified malignant neoplasm of axilla and upper limb lymph nodes (8) Iron deficiency anemia: PLAN: iv iron (9) Hypocalcemia: PLAN: s/p zometa dose on 11/09/24
--- NOTE | 2024-11-18 14:01 | PCM.DC.SUM ---
Providers Date of Admission: 11/15/24 Primary Care Physician: Dr. Asha Pratt MD Consultations 11/17/24 09:01 Consult: Nephrology Routine Consulting Provider: Annabel Carter Reason for Consult: LAXMI/ATN EMERGENT Consult: No MD Notified: Yes Date Notified: 11/17/24 Time Notified: 09:31 Method of Notification: Text Reason For Visit: UTI, LAXMI Diagnosis Discharge Diagnosis (1) Acute kidney injury: Status: Acute Code(s): N17.9 - Acute kidney failure, unspecified (2) Hypokalemia: Status: Acute Code(s): E87.6 - Hypokalemia (3) Urinary tract infection: Status: Acute Code(s): N39.0 - Urinary tract infection, site not specified (4) HTN (hypertension): Status: Chronic Code(s): I10 - Essential (primary) hypertension Qualifiers: Hypertension type: primary hypertension Qualified Code(s): I10 - Essential (primary) hypertension (5) History of chemotherapy: Status: Acute Code(s): Z92.21 - Personal history of antineoplastic chemotherapy (6) Type 2 diabetes mellitus with hyperglycemia: Status: Acute Code(s): E11.65 - Type 2 diabetes mellitus with hyperglycemia (7) Breast cancer metastasized to axillary lymph node: Status: Acute Code(s): C50.919 - Malignant neoplasm of unspecified site of unspecified female breast; C77.3 - Secondary and unspecified malignant neoplasm of axilla and upper limb lymph nodes Qualifiers: Laterality: left Qualified Code(s): C50.912 - Malignant neoplasm of unspecified site of left female breast; C77.3 - Secondary and unspecified malignant neoplasm of axilla and upper limb lymph nodes (8) Iron deficiency anemia: Status: Acute Code(s): D50.9 - Iron deficiency anemia, unspecified (9) Hypocalcemia: Status: Acute Code(s): E83.51 - Hypocalcemia Medications at Discharge Home Medications ascorbic acid (vitamin C) 100 mg tablet 500 mg PO QDAY 03/29/17 vitamin E (dl, acetate) 45 mg (100 unit) capsule 400 unit PO QDAY 03/29/17 aspirin 81 mg chewable tablet 81 mg PO ONCE 04/04/17 cyanocobalamin (vitamin B-12) 1,000 mcg capsule 1,000 mcg PO DAILY 04/23/17 ergocalciferol (vitamin D2) 1,250 mcg (50,000 unit) capsule (Vitamin D2) 50,000 unit PO QWEEK 09/03/23 everolimus (antineoplastic) 10 mg tablet 10 mg PO DAILY 09/03/23 exemestane 25 mg tablet 25 mg PO DAILY 09/03/23 lorazepam 0.5 mg tablet 0.5 mg PO TID PRN anxiety 09/03/23 pantoprazole 40 mg tablet,delayed release 40 mg PO DAILY 09/03/23 calcium carbonate 1,000 mg PO DAILY 10/09/23 amlodipine 5 mg tablet 5 mg PO QDAY #90 tabs 07/02/24 insulin glargine 100 unit/mL (3 mL) subcutaneous pen (Lantus Solostar U-100 Insulin) 20 unit subcut QAM 07/02/24 ursodiol 500 mg tablet (DARRELL Forte) 1,250 mg PO QDAY 07/02/24 tirzepatide 2.5 mg/0.5 mL subcutaneous pen injector (Mounjaro) 2.5 mg subcut QWEEK 11/15/24 trazodone 50 mg tablet 50 mg PO QHS 11/15/24 cefdinir 300 mg capsule 300 mg PO DAILY 10 days #10 caps 11/18/24 Hospital Course Operations None Procedures None Summary of Care Provided Minutes Spent on Discharge: 36 Hospital Course: Per HPI: The patient is a 64 y/o F w/ PMHx: CKD stage II per GFR trending, Chronic anemia, Overweight, GERD, Diabetes mellitus type II, HTN, HLD, Hx L breast CA unclear specific type s/p L total breast mastectomy considered in remission, Primary biliary cirrhosis who presents to the [facility] ED on 11/15/2024 with significant fatigue, malaise, increasing weakness as well as loose stools over the last 3 days with decreased oral intake with subjective fevers and chills and diaphoresis with decreased urine output prompting eventual ED evaluation. She does report that she had urinary intact infection approximate 1 month prior specifically E. coli and at that time was treated with Augmentin as far as recent antibiotic therapies but none since. Workup in the ED included T97.8, heart rate 92, BP 103/67, respiratory 18, 99% on room air, notable orthostatic vital signs although slightly atypical with laying 95/59, sitting 121/61, standing 93/52 with no heart rate alteration, most recent repeat vitals of heart rate 99, BP 101/55, respiratory rate 16, 97% on room air, CBC with WC 12.9, hemoglobin 9.2, MCV 82, platelet 135 with left shift, BMP with sodium 130, potassium 2.8, chloride 93, BUN/canaille 45/3.18, GFR 16, glucose 123, urinalysis noted to be cloudy, protein 100, occult blood 250, nitrate negative, leukocyte esterase 500 with urine WBCs greater than 100 with 2+ bacteria with urine culture pending per ED, rapid SARS COVID/)/RSV PCR negative. In the ED patient ministered 1 L normal saline, potassium 40 mill equivalent p.o. x 1, IV Rocephin 1 g x 1. Hospital Course: 1. Acute UTI secondary to E. coli with LAXMI due to ATN/AIN/anemia of chronic disease with chronic thrombocytopenia complicated by chemotherapy?64-year-old female presented to the hospital with fatigue and malaise and increasing weakness and loose stools. While here she did not have any more diarrhea so the C. difficile testing was canceled. She was started on IV antibiotics and found to have with UTI with an intermediately resistant E. coli. She was on Rocephin. Urine culture only had 25-50,000 CFU's however given the fact that she is on chemotherapy for metastatic breast cancer we will treat aggressively. Will plan to discharge on cefdinir 300 mg p.o. daily secondary to her renal function for 5 days though she is planning on going to [facility] on Saturday so I gave her 10 days total of antibiotics to take with her in case she were to develop a UTI while in [place]. I did consult nephrology to make aware the ATN/AIN however I discussed the case with oncology who felt that it would be okay for her to take a break from the chemotherapy pills as well as discontinuing her hydrochlorothiazide, losartan and metoprolol. Will leave her just on the amlodipine for blood pressure control. She did develop anemia which is appear to be related to chronic disease CRP was elevated to 176 and ferritin was also elevated, iron sat was 5.4 with an iron of 12 so she was given a dose of Venofer and I recommended she follow-up with her oncologist on Saturday. Blood cultures have been negative for 48 hours and stool occult for blood was also negative. I discussed with her the plan for discharge today and she expressed understanding of the risks and benefits of going home and would like to go home today. I do recommend outpatient follow-up with her PCP for lab work. 2. Essential hypertension, hyperlipidemia, metastatic breast cancer, anxiety, depression, type 2 diabetes, GERD, primary biliary cirrhosis her chronic medical conditions which complicate her care. Her home medications were continued where appropriate. I recommend discontinuation of hydrochlorothiazide and losartan as well as metoprolol. She can have repeat blood pressure checks as an outpatient by her PCP to determine whether any medications need to be reinitiated. Will continue with her amlodipine for her blood pressure control. Physical Exam Narrative General: Alert, Oriented x3, Cooperative, No apparent distress HEENT: Atraumatic, PERRLA, EOMI, Normocephalic Oral: Moist Mucosa Neck: Supple, No JVD Lungs: Clear to auscultation, Normal air movement, No rhonchi, No wheeze, No rales Cardiovascular: Regular rate, Regular Rhythm, Normal S1, Normal S2, No murmurs Abdomen: Soft, Non Tender, Non-Distended, No Hepato-splenomegaly Extremities: No edema Skin: No rashes, No breakdown Musculoskeletal: No Tenderness to Palpation of Joints or Extremities Neurological: No focal neurological deficits, Motor Exam 5/5 strength throughout, Sensory exam intact to light touch and pain Psych/Mental Status: Normal Affect, Appropriate Weight / BMI Weight Weight: 180 lb 15.992 oz Body Mass Index (BMI) 29.0 ABG / Lab / Microbiology Data 11/18/24 05:18 11/18/24 05:18 Laboratory: Laboratory Results - last 24 hr 11/17/24 10:15: U Random Total Protein 62.6 H, Urine Creatinine 88.30, Protein/Creatinin Ratio 709 H 11/17/24 16:09: ROS-1 Antibody TNP, Sm (Beckham) Antibody TNP, BOTTLER HELPER Antibody TNP, Scl-70 Scleroderma Ab TNP, Antichromatin Antibodies TNP, Centromere B Antibody TNP 11/17/24 22:18: POC Glucose 115 H 11/18/24 05:18: WBC 5.7, RBC 2.86 L, Hgb 7.9 L, Hct 23.0 L, MCV 80.4 L, MCH 27.6, MCHC 34.3, RDW Std Deviation 37.3, RDW Coeff of Rosie 12.8, Plt Count 113 L, MPV 11.3, Immature Gran % (Auto) 0.300, Neut % (Auto) 67.2, Lymph % (Auto) 18.5 L, [place] % (Auto) 13.5 H, Eos % (Auto) 0.2, Baso % (Auto) 0.3, Absolute Neuts (auto) 3.8, Absolute Lymphs (auto) 1.06, Nucleated RBC % 0, Immature Plt Fraction 3.4, Retic Count 1.12, Immature Retic Fraction 6.20, Retic Hgb Equivalent 24.7 L, Sodium 137, Potassium 3.0 L, Chloride 103, Carbon Dioxide 19.2 L, Anion Gap 15, BUN 35 H, Creatinine 3.06 H, Estim Creat Clear Calc 19.74 L, Est GFR (MDRD) Non-Af 16 L, BUN/Creatinine Ratio 11.5, Glucose 87, Calcium 7.3 L, C-React Prot Ext Range 176.00 H 11/18/24 06:45: POC Glucose 87 11/18/24 11:32: POC Glucose 141 H Microbiology: Microbiology 11/15/24 22:38 Blood Culture (Wb) - Anticubital Right Blood Culture - Preliminary No growth in 48 hours. 11/15/24 22:38 Blood Culture (Wb) - Right Hand Blood Culture - Preliminary No growth in 48 hours. 11/17/24 10:00 Stool Stool Occult Blood ([place]) - Final 11/15/24 19:12 Urine, Clean Catch Urine Culture - Final Escherichia coli Gram negative jessie 11/15/24 19:12 Mucosa - Nose SARS-CoV-2, Influenza & RSV (PCR) - Final Radiography Diagnostic Testing: Radiology Impression Renal Ultrasound 11/17/24 14:48 IMPRESSION: 1. Nonobstructing right midpole renal calculus measuring 1 cm. 2. No hydronephrosis is visualized in bilateral kidneys. Reading Location: [facility] D/C Instructions Call your doctor if you observe: Fever of 101 or Higher, Shortness of breath, Dizziness, Fainting spells, Swelling in the ankles, Chest pain and Increased palpitations (irregular heartbeat) DC O2, CPAP, BIPAP Needs Home O2 Discharge instructions: No Meaningful Use Info Meaningful Use Meaningful Use Diagnoses (Choose all that apply): None applicable Discharge Plan Admission Admit Date/Time: 11/15/24 22:14 Attending Provider: William Minaya Primary Care Provider: Asha Pratt Consulting Providers: Meri Vu; Annabel Carter Instructions Additional Instructions / Restrictions: I discussed your case with your oncologist, he feels that you would be able to hold your everolimus and exemestane for a week or 2 while you are in [facility] to allow time for your kidneys to recover. I discontinued all of your blood pressure medications except for your amlodipine. I do recommend that you follow-up with your PCP when you return from [facility] to see if any further adjustments need to be made. I gave you 10 days worth of cefdinir 300 mg p.o. daily this antibiotic is dose adjusted because of your kidney disease. Please take 5 tablets and then take the remainder with you to [facility] in case you develop symptoms of a UTI while there. Discharge Orders/Prescriptions Prescriptions: New cefdinir 300 mg capsule 300 mg PO DAILY 10 Days Qty: 10 0RF Rx Instructions: Take 5 days tablet. Keep 5 tablets for when you go to [facility] incase you develop a recurrent infection Continued aspirin 81 mg tablet,chewable 81 mg PO ONCE vitamin E (dl, acetate) 100 unit capsule 400 unit PO QDAY ascorbic acid (vitamin C) 100 mg tablet 500 mg PO QDAY ursodiol [DARRELL Forte] 500 mg tablet 1,250 mg PO QDAY lorazepam 0.5 mg tablet 0.5 mg PO TID PRN (Reason: anxiety) exemestane 25 mg tablet 25 mg PO DAILY everolimus (antineoplastic) 10 mg tablet 10 mg PO DAILY pantoprazole 40 mg tablet,delayed release (DR/EC) 40 mg PO DAILY calcium carbonate 500 mg calcium (1,250 mg) tablet 1,000 mg PO DAILY insulin glargine [Lantus Solostar U-100 Insulin] 100 unit/mL (3 mL) insulin pen 20 unit subcut QAM amlodipine 5 mg tablet 5 mg PO QDAY Qty: 90 3RF cyanocobalamin (vitamin B-12) 1,000 MCG capsule 1,000 mcg PO DAILY ergocalciferol (vitamin D2) [Vitamin D2] 1,250 mcg (50,000 unit) capsule 50,000 unit PO QWEEK trazodone 50 mg tablet 50 mg PO QHS Mounjaro 2.5 mg/0.5 mL pen injector 2.5 mg subcut QWEEK Discontinued metoprolol succinate 25 mg tablet extended release 24 hr 25 mg PO QDAY hydrochlorothiazide 12.5 mg tablet 12.5 mg PO QDAY losartan 25 mg tablet 50 mg PO DAILY Referrals / Follow Up: Asha Pratt MD [Primary Care Provider] - Alan Olivia DO [Med Staff - Active Staff] - Within 1 Week Disposition Disposition (needs filled in before D/C Order can be placed): Home, Self Care Charges/Coding Visit Charges Inpatient E&M: 50180 Disch Hosp >30min
[2024-11-19 14:09] LABS: ANTINUCLEAR ANTIBODIES DIRECT Negative (Negative); Cytoplasmic Ab (C-ANCA) <1:20 titer (Neg:<1:20); Perinuclear Ab (P-ANCA) <1:20 titer (Neg:<1:20)
== END 2024-11-18 12:56 | disposition home or self-care (01) | DRG 689 ==
LOC: ED 22:28 → MS3 22:43
PROVIDERS: Internal Medicine Nephrology; Admitting Provider Family Medicine; Emergency Provider Emergency Medicine; PCP Internal Medicine; Visit Provider Family Medicine
DX: N39.0 Urinary tract infection, site not specified (principal); N17.0 Acute kidney failure with tubular necrosis; C77.3 Secondary and unspecified malignant neoplasm of axilla and upper limb lymph nodes; E87.1 Hypo-osmolality and hyponatremia; E83.51 Hypocalcemia; B96.20 Unspecified Escherichia coli [E. coli] as the cause of diseases classified elsewhere; K74.3 Primary biliary cirrhosis; E11.22 Type 2 diabetes mellitus with diabetic chronic kidney disease; D50.9 Iron deficiency anemia, unspecified; I12.9 Hypertensive chronic kidney disease with stage 1 through stage 4 chronic kidney disease, or unspecified chronic kidney disease; E11.65 Type 2 diabetes mellitus with hyperglycemia; D63.0 Anemia in neoplastic disease; E78.5 Hyperlipidemia, unspecified; E87.6 Hypokalemia; Z79.4 Long term (current) use of insulin; K21.9 Gastro-esophageal reflux disease without esophagitis; F41.9 Anxiety disorder, unspecified; R19.7 Diarrhea, unspecified; N18.2 Chronic kidney disease, stage 2 (mild); E87.8 Other disorders of electrolyte and fluid balance, not elsewhere classified; E86.1 Hypovolemia; E66.3 Overweight; Z79.82 Long term (current) use of aspirin; Z92.21 Personal history of antineoplastic chemotherapy; Z85.3 Personal history of malignant neoplasm of breast; Z90.12 Acquired absence of left breast and nipple
CPT/HCPCS: 36415; 76770; 80048; 80053; 81001; 82274; 82436; 82570; 82728; 82962; 83540; 83550; 83735; 84100; 84133; 84156; 84300; 85025; 85045; 86037; 86038; 86140; 86225; 87040; 87077; 87086; 87088; 87186; 87631; 94668; 99285; A4216; J2916

== ENCOUNTER → 2024-12-15 | Outpatient (CLI) | payer MEDICARE, OTHER, SELFPAY ==
--- NOTE | 2024-12-15 12:55 | ECHODONC_ITS ---
Reason For Study Reason For Study: Decreased Strain, Chemotherapy Procedure This was a 2D Doppler, Color Flow transthoracic echocardiogram. Myocardial strain analysis was performed in this exam to aid in the assessment of cardiac function. Exam performed in department. Left Ventricle Normal LV size. The global longitudinal strain = -13.9% (abnormal). Left ventricular systolic function is lower limits of normal. The left ventricular ejection fraction is 50 %. Stage 1 diastolic dysfunction. Right Ventricle Normal RV size. Normal systolic function. Atria Normal left atrium. Normal right atrium. Mitral Valve There is Mild focal posterior mitral annular calcification. Mild (1+) mitral valve insufficiency. Tricuspid Valve Normal tricuspid valve. Mild to moderate (1-2+) tricuspid valve insufficiency. Pulmonary artery systolic pressure is 29 mmHg. Aortic Valve Trisinus/trileaflet aortic valve. Pulmonic Valve Normal pulmonic valve. Trivial pulmonic valve insufficiency. Great Vessels Normal sized aortic root. Pericardium/Pleural No pericardial effusion. MMode/2D Measurements & Calculations LVIDd: 4.9 cm IVSd: 0.88 cm Ao root diam: 3.4 cm LVIDs: 3.4 cm LVPWd: 0.89 cm RVDd: 3.6 cm FS: 30.0 % LAV(MOD-bp): 52.7 ml LVAd ap4: 29.7 cm2 SV(MOD-sp4): 40.6 ml LAV(MOD-bp) Indexed: 27.5 ml/m2 LVLd ap4: 7.6 cm SI(MOD-sp4): 21.2 ml/m2 LAV(MOD-sp2): 54.0 ml EDV(MOD-sp4): 94.0 ml LAV(MOD-sp4): 46.2 ml EDV(sp4-el): 97.9 ml LVAs ap4: 20.5 cm2 LVLs ap4: 6.7 cm ESV(MOD-sp4): 53.4 ml ESV(sp4-el): 53.1 ml EF(MOD-sp4): 43.2 % EF(sp4-el): 45.7 % SV(sp4-el): 44.7 ml LA A4 area: 18.2 cm2 LA dimension(2D): 3.8 cm RA A4 area: 15.2 cm2 Time Measurements MV dec time: 0.21 sec Doppler Measurements & Calculations MV E max oziel: 56.3 cm/sec Lat Peak E' Oziel: 8.5 cm/sec Med Peak E' Oziel: 3.9 cm/sec MV A max oziel: 94.7 cm/sec E/E' lat: 6.6 E/E' med: 14.3 MV E/A: 0.59 MV V2 max: 112.6 cm/sec MV P1/2t max oziel: 61.1 cm/sec Ao V2 max: 141.3 cm/sec MV max P.1 mmHg MV P1/2t: 70.0 msec Ao max P.0 mmHg MV V2 mean: 54.5 cm/sec Ao V2 mean: 99.7 cm/sec MV mean P.4 mmHg MV dec slope: 255.8 cm/sec2 Ao mean P.5 mmHg MV V2 VTI: 19.0 cm MVA(P1/2t): 3.1 cm2 Ao V2 VTI: 28.9 cm AV (velocity ratio): 0.79 LV V1 max: 113.3 cm/sec PA V2 max: 101.4 cm/sec TR max oziel: 256.1 cm/sec LV V1 max P.1 mmHg TR max P.4 mmHg LV V1 mean P.1 mmHg LV V1 mean: 83.8 cm/sec LV V1 VTI: 22.8 cm ECHO/ONC Echo Complete Interpretation Summary The left ventricular ejection fraction is 50 %. Stage 1 diastolic dysfunction. Mild (1+) mitral valve insufficiency. Mild to moderate (1-2+) tricuspid valve insufficiency. The global longitudinal strain = -13.9% (abnormal). Compared to the previous echo from August 2023 that has been some reduction in the left ventricular ejection fraction. Ordering Physician: Paulo Salazar Referring Physician: Paulo Salazar Performed By: Jamal Siegel RCS
== END | disposition home or self-care (01) ==
LOC: CVS 12:50
PROVIDERS: PCP Internal Medicine; Referring Provider Student in an Organized Health Care Education/Training Program; Visit Provider Student in an Organized Health Care Education/Training Program
DX: R60.0 Localized edema (principal)
CPT/HCPCS: 93306; 93356

== ENCOUNTER 2025-01-31 13:11 | Emergency (ER) | payer MEDICARE, OTHER, SELFPAY ==
[2025-01-31 13:12] VITALS: BP 130/61; PULSE 110; RESP 18; TEMP 37.1; O2SAT 98; BMI 28.3
--- NOTE | 2025-01-31 13:44 | EX.ED.DYSGE1 ---
HPI History of Present Illness Chief Complaint: General Illness Detail of Chief Complaint: Not feeling well since Saturday, diarrhea, thirst, orthostatic lightheaded Informant: patient Onset/Context/Timing Onset: Days (Detailed HPI narrative) Context: Sudden Onset Timing: Intermittent Quality: Initially soft stool, watery stool since last evening Location: GI and general Current Severity: Mild Maximum Severity: Severe Worsened by: Nothing Relieved by: Took 2 Imodium tablets earlier today Associated Symptoms Associated Symptoms: HPI narrative Narrative Narrative: Patient is 64-year-old woman. She has history of iron deficiency anemia, hypertension, type 2 diabetes, breast cancer who presents with not feeling well, thirsty, orthostatic lightheadedness and diarrhea since last evening. She was recently on antibiotic for urologic procedure. She was on cephalexin. She complains of subjective fever with chills. She denies headache, visual, ocular or auditory symptoms. She denies cardiac or respiratory symptoms. She denies abdominal pain, distention. She denies dysuria, frequency, urgency or hematuria. If anything she has decreased urine output. This is of concern because she has a past history of kidney injury. Prior similar symptoms: Yes Recent Illness/Hospitalization: No [facility] Medical History History of removal of left breast implant (05/18/24) Acute kidney injury Chemotherapy induced cardiomyopathy Malignant neoplasm of lower-outer quadrant of left breast of female, estrogen receptor positive Type 2 diabetes mellitus with hyperglycemia Primary biliary cirrhosis History of chemotherapy Breast cancer Abnormal mammogram of left breast HTN (hypertension) Home Medications ?Medication ?Instructions ?Recorded ?Last Taken ?Type ascorbic acid (vitamin C) 100 mg 500 mg PO QDAY 03/29/17 01/30/25 History tablet aspirin 81 mg chewable tablet 81 mg PO ONCE 04/04/17 01/30/25 History cyanocobalamin (vitamin B-12) 1,000 mcg PO DAILY 04/23/17 01/30/25 History 1,000 mcg capsule ergocalciferol (vitamin D2) 1,250 50,000 unit PO QWEEK 09/03/23 01/27/25 History mcg (50,000 unit) capsule (Vitamin D2) everolimus (antineoplastic) 10 mg 10 mg PO DAILY 09/03/23 01/31/25 History tablet exemestane 25 mg tablet 25 mg PO DAILY 09/03/23 01/31/25 History pantoprazole 40 mg tablet,delayed 40 mg PO DAILY 09/03/23 01/31/25 History release calcium carbonate 1,000 mg PO DAILY 10/09/23 01/30/25 History amlodipine 5 mg tablet 5 mg PO QDAY #90 tabs 07/02/24 01/31/25 Rx insulin glargine 100 unit/mL (3 30 unit subcut QAM 07/02/24 01/31/25 History mL) subcutaneous pen (Lantus Solostar U-100 Insulin) trazodone 50 mg tablet 50 mg PO QHS 11/15/24 01/30/25 History losartan 25 mg tablet 25 mg PO DAILY 01/31/25 Unknown History ursodiol 250 mg tablet 250 mg PO .COMPLEX 01/31/25 01/30/25 History Allergy/AdvReac Type Severity Reaction Status Date / Time No Known Allergies Allergy Verified 01/31/25 13:12 Family History Mother Diabetes Heart disease Hypertension CVA (cerebral vascular accident) Father Diabetes Hypertension Surgical History Hx of total mastectomy of left breast S/P breast biopsy S/P total knee replacement History of section Social History household members: spouse Smoking Status: Never smoker alcohol intake: current alcohol intake frequency: 0-2 drinks per day substance use type: does not use ROS ROS ED Constitutional Constitutional ED: Reports chills, fever(s), subjective and sweats; Denies weight loss Eyes Eyes: Denies blurry vision, change in vision or diplopia ENT ENT ED: Denies ear pain, rhinorrhea or sore throat Cardiovascular Cardiovascular: Denies chest pain, orthopnea, palpitations or racing heartbeat Respiratory/Chest Respiratory/Chest: Denies cough, dyspnea, dyspnea on exertion or orthopnea Gastrointestinal Gastrointestinal: Reports diarrhea and nausea; Denies abdominal pain, constipation, melena or vomiting Genitourinary Genitourinary ED: Denies dysuria, hematuria or urinary frequency Musculoskeletal Musculoskeletal: Denies arthralgias or myalgias Integumentary Denies rash Neurologic Neurologic: Reports weakness; Denies paresthesias Hematologic/Lymphatic Hematologic/Lymphatic: Reports systems reviewed and no addt'l complaints, except as documented EXAM Physical Exam Const Vital Signs: 01/31/25 13:12 01/31/25 13:12 01/31/25 15:12 Temperature 98.8 F Temperature Source Oral Pulse Rate 110 H 99 Respiratory Rate 18 29 H Respiratory Effort Normal Non-Labored Respiratory Pattern Normal Blood Pressure 130/61 H 127/66 H Blood Pressure Mean 84 86 Pulse Ox 98 94 Oxygen Delivery Method Room Air Room Air Positive well nourished and well developed Constitutional Narrative: Patient appears ill but not toxic. She is tachycardic. General Appearance ED: well developed, NAD and pallor; Negative for cyanotic or diaphoretic HEENT Reports dry mucous membranes HEENT Narrative: Head is atraumatic and normocephalic. Ears normal. Nares patent. Mouth ED: Yes dry mucous membranes Mouth: dry mucous membranes Eyes PERRL and EOMs intact bilaterally General Eye ED: Negative for pale conjunctiva or scleral icterus Neck no lymphadenopathy and no JVD Resp normal respiratory effort and clear to auscultation bilaterally Cardio regular rhythm, S1 normal heart sound, S2 normal heart sound and no murmurs Rate: tachycardic GI non-tender and no masses; Negative for non-distended or hepatosplenomegaly Inspection: abdominal distention Auscultation: hyperactive bowel sounds Palpation: soft; Negative for tender or guarding Back/Spine no CVA tenderness Extremity normal to inspection Neuro oriented x3 and CN's II-XII intact bilaterally Sensorium / Orientation: alert Psych mental status grossly normal Skin no rashes or lesions noted and no wounds General Skin Exam: pallor; Negative for elasticity normal or jaundice MDM MDM MDM Narrative Medical decision making narrative: Clinically patient is dehydrated. Will have nurse administer 1 L normal saline. She received Zofran for her nausea. BMP was obtained to assess glucose and she is diabetic and renal function she has prior history of kidney injury as well as electrolytes and specifically to evaluate for hypokalemia. CBC to assess white count and determine if there is eosinophilia. If she has any further loose stools will need to consider pseudomembranous colitis since she recently had antibiotics. Patient is on no thiazide or loop diuretic. He hypoglycemia and hyper chloremia may be due to the fact that she is drinking a lot of water. The hypokalemia and only because due to the fact that she been having diarrhea. To confirm my suspicion we will obtain urine and serum osmolarity and urine sodium and chloride. Lab Data Attestation: I reviewed the patient's lab results. Lab results narrative: White count is elevated 14.7 thousand. Patient is anemic with an H&H of 9.2 and 26.6. Prior H&H 7.9 and 23.0 on November 18, 2024. Patient has hyponatremia, hypokalemia and hypochloremia. Creatinine is better than prior. Will asked patient if she is on a thiazide diuretic or loop diuretic. None is listed on her medication list. Labs: Laboratory Results - last 24 hr 01/31/25 14:04 WBC 14.2 H RBC 3.21 L Hgb 9.2 L Hct 26.6 L MCV 82.9 MCH 28.7 MCHC 34.6 RDW Std Deviation 40.4 RDW Coeff of Rosie 13.4 Plt Count 146 L MPV 10.1 Immature Gran % (Auto) 0.600 Neut % (Auto) 85.6 H Lymph % (Auto) 5.1 L Miner % (Auto) 8.5 Eos % (Auto) 0.1 Baso % (Auto) 0.1 Absolute Neuts (auto) 12.1 H Absolute Lymphs (auto) 0.73 L Nucleated RBC % 0 Sodium 131 L Potassium 2.9 L Chloride 95 L Carbon Dioxide 22.1 Anion Gap 14 BUN 23 H Creatinine 1.93 H Estim Creat Clear Calc 30.92 L Est GFR (MDRD) Non-Af 28 L BUN/Creatinine Ratio 12.0 Glucose 237 H Calcium 7.9 Cortisol level is elevated not low. Discharge Plan Triage Chief Complaint: General Illness ED Provider: Nic Vital Dx/Rx/DC Orders Clinical Impression: Diarrhea, Chronic kidney disease (CKD) stage G4/A1, severely decreased glomerular filtration rate (GFR) between 15-29 mL/min/1.73 square meter and albuminuria creatinine ratio less than 30 mg/g, Sinus tachycardia seen on threat monitoring analyst, Chronic anemia, Leukocytosis, Acute hypokalemia, Acute hyponatremia, Type 1 diabetes, Hypertension Instructions: ED Diarrhea, Unknown Cause, ED Hyponatremia Prescriptions: No Action aspirin 81 mg tablet,chewable 81 mg PO ONCE ascorbic acid (vitamin C) 100 mg tablet 500 mg PO QDAY exemestane 25 mg tablet 25 mg PO DAILY everolimus (antineoplastic) 10 mg tablet 10 mg PO DAILY pantoprazole 40 mg tablet,delayed release (DR/EC) 40 mg PO DAILY calcium carbonate 500 mg calcium (1,250 mg) tablet 1,000 mg PO DAILY insulin glargine [Lantus Solostar U-100 Insulin] 100 unit/mL (3 mL) insulin pen 30 unit subcut QAM amlodipine 5 mg tablet 5 mg PO QDAY Qty: 90 3RF cyanocobalamin (vitamin B-12) 1,000 MCG capsule 1,000 mcg PO DAILY ergocalciferol (vitamin D2) [Vitamin D2] 1,250 mcg (50,000 unit) capsule 50,000 unit PO QWEEK losartan 25 mg tablet 25 mg PO DAILY ursodiol 250 mg tablet 250 mg PO .COMPLEX Rx Instructions: 250 mg orally 3 TABLETS AM AND 2 TABS PM; trazodone 50 mg tablet 50 mg PO QHS Primary Care Provider: Asha Pratt Referrals: Asha Pratt MD [Primary Care Provider, Internal Medicine] - 3-5 Days if not improving Activity Restrictions/Additional Instructions: Do not drink just plain water. Print Language: Sammarinese Disposition Disposition: Home, Self Care
--- OUTSIDE RECORDS SUMMARY | 2025-01-31 13:54 | XMS RPT_ITS | CCD ---
Author Organization [facility] Care Team Providers Care Wind Development Director Name Role Phone Mindi Dasilva Unavailable Adebayo Silverio Unavailable Palma Carter Unavailable Surinder Valdivia [...] Jesus Unavailable Eliz Bingham MD Unavailable Paneccasio [facility], Tatianna Unavailable Jacinta Rivas MD Primary Care Provider Dvae PT, Lizeth Unavailable Roscoe MIRAMONTES, Lisa Unavailable Burr 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.FORM BLOCK MAKER, Cathy Unavailable Rona 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.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, Lisbet Unavailable Rona 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.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, Lisbet Angelita Unavailable Rona 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.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, Lisbet Unavailable Rona 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.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, Lisbet Unavailable Rona 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.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, Lisbet Unavailable TALAMPAS, JACINTA D Primary Care Unavailable ELIZ BINGHAM Referring Unavailable TALAMPAS, JACINTA D Primary Care Unavailable MICKI BUTLER Attending Unavailable Burr 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.FORM BLOCK MAKER, Cathy Unavailable Burr 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.FORM BLOCK MAKER, Cathy Unavailable SERENA CARRASCO Referring Unavailable TALAMPAS, JACINTA D Primary Care Unavailable SERENA CARRASCO Referring Unavailable TALAMPAS, JACINTA D Primary Care Unavailable NEL DAY Referring Unavailable TALAMPAS, JACINTA D Primary Care Unavailable Talampas MD, Dr. Jacinta North Primary Care Provider Nata NARAYAN, Dr. Mendez Attending Provider Nata NARAYAN, Dr. Mendez Referring Provider Terence NARAYAN, Dr. Jacinta North Referring Provider Paulo Bajwa Attending Provider Dr. Tyson Doherty DO Emergency Provider Mirella NARAYAN, Dr. Meri Gonzalez Admit Provider Mirella NARAYAN, Dr. Meri Gonzalez Attending Provider Mirella NARAYAN, Dr. Meri Gonzalez Other Provider Rei NARAYAN, Dr. William Dorsey Attending Provider Raul COMBS, Dr. Jin Other Provider Rei NARAYAN, Dr. William Dorsey Other Provider [phone] MASCI, SERENA A Referring Unavailable TALAMPAS, JACINTA D Primary Care Unavailable MASCI, SERENA A Referring Unavailable TALAMPAS, JACINTA D Primary Care Unavailable MASCI, SERENA A Referring Unavailable TALAMPAS, JACINTA D Primary Care Unavailable TALAMPAS, JACINTA D Primary Care Unavailable MASCI, SERENA A Referring Unavailable TALAMPAS, JACINTA D Primary Care Unavailable PROVIDER, UNKNOWN Admitting Unavailable PROVIDER, UNKNOWN Attending Unavailable TALAMPAS, JACINTA D Primary Care Unavailable MASCI, SERENA A Referring Unavailable TALAMPAS, JACINTA D Primary Care Unavailable MASCI, SERENA A Referring Unavailable MASCI, SERENA A Referring Unavailable TALAMPAS, JACINTA D Primary Care Unavailable MASCI, SERENA A Referring Unavailable TALAMPAS, JACINTA D Primary Care Unavailable PROVIDER, UNKNOWN Referring Unavailable TALAMPAS, JACINTA D Primary Care Unavailable Talampas, Jacinta D Primary Care Unavailable White Meri L Admitting Unavailable Meri Vu L Consulting Unavailable William Minaya Attending Unavailable Annabel Carter Consulting Unavailable William Minaya Consulting Unavailable Talampas, Jacinta D Primary Care Unavailable Paulo Salazar Referring Unavailable Paulo Salazar Attending Unavailable Meri Vu L Consulting Unavailable Meri Vu L Admitting Unavailable William Minaya Attending Unavailable Talampas, Jacinta D Primary Care Unavailable Annabel Carter Consulting Unavailable Talampas, Jacinta D Primary Care Unavailable Rai Sterling Attending Unavailable Paulo Salazar Referring Unavailable DemiterPaulo Attending Unavailable Talampas, Jacinta D Primary Care Unavailable Talampas, Jacinta D Primary Care Unavailable Nata, Stanley Referring Unavailable Nata Andrea Attending Unavailable Talampas, Jacinta D Primary Care Unavailable Jabour, Vincent Referring Unavailable Jabour Vincent Attending Unavailable Talampas, Jacinta D Primary Care Unavailable Nata, Stanley Attending Unavailable Talampas, Jacinta D Referring Unavailable Talampas, Jacinta D Primary Care Unavailable Nata, Andrea Attending Unavailable Talampas, Jacinta D Referring Unavailable Talampas, Jacinta D Primary Care Unavailable Paulo Salazar Attending Unavailable Meri Vu Attending Unavailable Talampas , Dr. Jacinta North Primary Care Physician Paulo Bajwa Attending Physician Dr. Tyson Doherty DO Emergency Department Physi alisa Mirella NARAYAN, Dr. Meri Gonzalez Admitting Physician Mirella NARAYAN, Dr. Meri Gonzalez Nurse Practitioner Rei NARAYAN, Dr. William Dorsey Attending Physician Dr. Annabel Carter DO Nurse Practitioner Rei NARAYAN, Dr. William Dorsey Nurse Practitioner Paulo Bajwa Referring Provider [phone] Nata NARAYAN, Dr. Mendez Attending Physician MICKI MARCELINO Referring Unavailable TALAMPAS, JACINTA D Primary Care Unavailable TALAMPAS, JACINTA D Primary Care Unavailable MICKI BUTLER Attending Unavailable TALAMPAS, JACINTA D Primary Care Unavailable TALAMPAS, JACINTA D Primary Care Unavailable TALAMPAS, JACINTA D Primary Care Unavailable SELF Referring Unavailable LISBET PIZANO Attending Unavailable DAISY TITUS Attending Unavailable TALAMPAS, JACINTA D Primary Care Unavailable TALAMPAS, JACINTA D Primary Care Unavailable TALAMPAS, JACINTA D Primary Care Unavailable CATHY BURR Referring Unavailable BARB, NEL M Referring Unavailable TALAMPAS, JACINTA D Primary Care Unavailable TALAMPAS, JACINTA D Primary Care Unavailable BURR, CATHY Attending Unavailable TALAMPAS, JACITNA D Primary Care Unavailable MASCISERENA Referring Unavailable TALAMPAS, JACINTA D Primary Care Unavailable LISBET PIZANO Attending Unavailable TALAMPAS, JACINTA D Primary Care Unavailable BURR, CATHY Attending Unavailable TALAMPAS, JACINTA D Primary Care Unavailable SERENA CARRASCO Referring Unavailable SERENA CARRASCO Referring Unavailable TALAMPAS, JACINTA D Primary Care Unavailable TALAMPAS, JACINTA D Primary Care Unavailable MINO BEARD Attending Unavailable TALAMPAS, JACINTA D Primary Care Unavailable TALAMPAS, JACINTA D Primary Care Unavailable SERENA CARRASCO Referring Unavailable TALAMPAS, JACINTA D Primary Care Unavailable MINO BEARD Attending Unavailable SELF Referring Unavailable TALAMPAS, JACINTA D Primary Care Unavailable TALAMPAS, JACINTA D Primary Care Unavailable SERENA CARRASCO Attending Unavailable TALAMPAS, JACINTA D Primary Care Unavailable TALAMPAS, JACINTA D Primary Care Unavailable SERENA CARRASCO Attending Unavailable SERENA CARRASCO Referring Unavailable TALAMPAS, JACINTA D Primary Care Unavailable MASCISERENA Attending Unavailable LUIS ALBERTO RAMAN Referring Unavailable TALAMPAS, JACINTA D Primary Care Unavailable STEVE LA Attending Unavailable DAISY TITUS Attending Unavailable TALAMPAS, JACINTA D Referring Unavailable TALAMPAS, JACINTA D Primary Care Unavailable TALAMPAS, JACINTA D Primary Care Unavailable TALAMPAS, JACINTA D Primary Care Unavailable TALAMPAS, JACINTA D Primary Care Unavailable MARCELINO, MICKI Admitting Unavailable MARCELINO, MICKI Attending Unavailable TALAMPAS, JACINTA D Primary Care Unavailable TALAMPAS, JACINTA D Primary Care Unavailable TALAMPAS, JACINTA D Primary Care Unavailable BURR, CATHY Attending Unavailable EDSONISERENA Referring Unavailable TALAMPAS, JACINTA D Primary Care Unavailable DAVID ARMSTRONG Attending Unavailable TALAMPAS, JACINTA D Primary Care Unavailable TALAMPAS, JACINTA D Primary Care Unavailable DAISY TITUS Attending Unavailable TALAMPAS, JACINTA D Primary Care Unavailable SERENA CARRASCO Referring Unavailable SERENA CARRASCO Attending Unavailable TALAMPAS, JACINTA D Primary Care Unavailable TALAMPAS, JACINTA D Primary Care Unavailable MASCI, SERENA A Referring Unavailable TALAMPAS, JACINTA D Primary Care Unavailable TALAMPAS, JACINTA D Primary Care Unavailable MASCI, SERENA A Referring Unavailable TALAMPAS, JACINTA D Primary Care Unavailable TALAMPAS, JACINTA D Primary Care Unavailable MASCI, SERENA A Referring Unavailable MICKI MARCELINO Attending Unavailable TALAMPAS, JACINTA D Primary Care Unavailable TALAMPAS, JACINTA D Primary Care Unavailable TALAMPAS, JACINTA D Primary Care Unavailable MINO BEARD Attending Unavailable TALAMPAS, JACINTA D Primary Care Unavailable BURR, CATHY Attending Unavailable BURR, CATHY Referring Unavailable TALAMPAS, JACINTA D Primary Care Unavailable LUIS ALBERTO RAMAN Attending Unavailable TALAMPAS, JACINTA D Primary Care Unavailable BURR, CATHY Attending Unavailable TALAMPAS, JACINTA D Primary Care Unavailable MINO BEARD Attending Unavailable TALAMPAS, JACINTA D Primary Care Unavailable BURR, CATHY Attending Unavailable BURR, CATHY Referring Unavailable TALAMPAS, JACINTA D Primary Care Unavailable FANNING, ELIZ A Referring Unavailable TALAMPAS, JACINTA D Primary Care Unavailable FANNING ELIZ Key Attending Unavailable FANNING, ELIZ A Referring Unavailable TALAMPAS, JACINTA D Primary Care Unavailable BURR, CATHY Referring Unavailable TALAMPAS, JACINTA D Primary Care Unavailable TALAMPAS, JACINTA D Primary Care Unavailable MASCI, SERENA A Referring Unavailable TALAMPAS, JACINTA D Primary Care Unavailable TALAMPAS, JACINTA D Primary Care Unavailable GARTH REZA Referring Unavailable TALAMPAS, JACINTA D Primary Care Unavailable NEL DAY Attending Unavailable TALAMPAS, JACINTA D Primary Care Unavailable MICKI BUTLER Attending Unavailable TALAMPAS, JACINTA D Primary Care Unavailable TALAMPAS, JACINTA D Primary Care Unavailable BURR, CATHY Referring Unavailable MASCI, SERENA A Referring Unavailable TALAMPAS, JACINTA D Primary Care Unavailable MICKI MARCELINO Attending Unavailable SELF Referring Unavailable TALAMPAS, JACINTA D Primary Care Unavailable MASCI, SERENA A Referring Unavailable TALAMPAS, JACINTA D Primary Care Unavailable ERICA LYONS Attending Unavailable DAISY TITUS Referring Unavailable TALAMPAS, JACINTA D Primary Care Unavailable TALAMPAS, JACINTA D Primary Care Unavailable TALAMPAS, JACINTA D Primary Care Unavailable FANNING, ELIZ A Attending Unavailable TALAMPAS, JACINTA D Primary Care Unavailable MARCELINO, MICKI Attending Unavailable TALAMPAS, JACINTA D Primary Care Unavailable TALAMPAS, JACINTA D Attending Unavailable TALAMPAS, JACINTA D Primary Care Unavailable TALAMPAS, JACINTA D Primary Care Unavailable BEARD, MINO Gonzalez Attending Unavailable TALAMPAS, JACINTA D Primary Care Unavailable BEARD, MINO Gonzalez Attending Unavailable TALAMPAS, JACINTA D Primary Care Unavailable MARCELINO, MICKI Attending Unavailable TALAMPAS, JACINTA D Primary Care Unavailable TALAMPAS, JACINTA D Primary Care Unavailable CARLA FORBES Referring Unavailable TALAMPAS, JACINTA D Primary Care Unavailable MASCI, SERENA Mackey Referring Unavailable TALAMPAS, JACINTA D Primary Care Unavailable LEMON, BOBBI Attending Unavailable TALAMPAS, JACINTA D Primary Care Unavailable MASCI, SERENA A Referring Unavailable LEMON, BOBBI Attending Unavailable TALAMPAS, JACINTA D Primary Care Unavailable MASCI, SERENA Mackey Referring Unavailable LEMON, BOBBI Attending Unavailable MASCI, SERENA A Referring Unavailable TALAMPAS, JACINTA D Primary Care Unavailable TALAMPAS, JACINTA D Primary Care Unavailable MASCI, SERENA Mackey Referring Unavailable BONAMICO, MILAGROS Mackey Attending Unavailable BLOCK, MICKI Referring Unavailable TALAMPAS, JACINTA D Primary Care Unavailable BLOCK, MICKI Referring Unavailable TALAMPAS, JACINTA D Primary Care Unavailable BLOCK, MICKI Referring Unavailable TALAMPAS, JACINTA D Primary Care Unavailable BLOCK, MICKI Referring Unavailable TALAMPAS, JACINTA D Primary Care Unavailable BONAMICSukhjinder, MILAGROS Mackey Attending Unavailable BLOCK, MICKI Referring Unavailable TALAMPAS, [...] Unavailable TALAMPAS, JACINTA D Primary Care Unavailable BONARACHEL, MILAGROS Mackey Attending Unavailable BLOCK, MICKI Referring Unavailable TALAMPAS, JACINTA D Primary Care Unavailable BLOCK, MICKI Referring Unavailable TALAMPAS, JACINTA D Primary Care Unavailable BLOCK, MICKI Referring Unavailable TALAMPAS, JACINTA D Primary Care Unavailable GARTH REZA Attending Unavailable CATHY BURR Referring Unavailable TALAMPAS, JACINTA [...] Unavailable TALAMPAS, JACINTA D Primary Care Unavailable GARTH REZA Admitting Unavailable GARTH REZA Attending Unavailable TALAMPAS, JACINTA D Primary Care Unavailable BONAMICOMILAGROS Attending Unavailable BLOCK, MICKI Referring Unavailable TALAMPAS, JACINTA D Primary Care Unavailable BLOCK, MICKI Referring Unavailable TALAMPAS, JACINTA D Primary Care Unavailable Allergies Allergy Classification Reported Allergen(s) Allergy Type Date of Onset Reaction(s) Facility Penicillins (antibiotic) (2 sources) Amoxicillin Drug Allergy 11-15-2022 [facility] (20 sources) Amoxicillin; Translations: [AMOXICILLIN] Drug Allergy 11-15-2022 [facility] Work Phone: Medications Current Medications Medication [...] take 1 tablet by mouth once daily Start: 05-12-2024 End: 05-12-2025 take 1 tablet by mouth once daily Amlodipine 2.5 mg tablet Discontinued 2.5 mg PO DAILY May 21, 2024 1:00am July 02, 2024 11:11am ascorbic acid 100 mg oral tablet (20 sources) Vitamin C Start: 03-29-2017 take 5 tablets by mo [facility] once daily Start: 09-09-2009 take 1 tablet by severo th once daily VITAMIN C, 100MG (Oral Tablet Chewable) 1 (one) Tablet Chewable Daily for 0 days Quantity: 90 {Tablet_Chewable} Refills: 0 Ordered: 09-Sep-2009 Tasia Phillips RN Start : 09-Sep-2009 Active take 1 tablet by severo once daily ascorbic acid, vitamin C, (VITAMIN C) 500 mg tablet Take 500 mg by mouth once daily. Active Comment on above: Take 500 mg by mouth once daily. atorvastatin 40 mg oral tablet (5 sources) HMG-CoA Reductase Inhibitor Start: 12-19-19 End: 12-19-19 26 take 1 tablet by mouth once daily atorvastatin (LIPITOR) 40 mg tablet Take 1 tablet by mouth once daily. 30 tablet 11 12/18/2024 12/18/2025 Active azithromycin 250 mg oral tablet (9 sources) Macrolide Antimicrobial Start: 05-07-19 End: 05-12-19 25 take 2 tablets by mouth once daily, [...] 0 11/12/2022 11/18/2022 Active Start: 12-29-2020 End: 09-28-2021 take 2 tablets by mouth once daily, [...] {Tablet} Refills: 0 Ordered: 11-Feb-2017 Chandler Emily LPN Start : 28-Jul-2015 End : 11-Feb-2017 Inactive Comment on above: take 2 tablets by mo uth immediately then take 1 tablet by mouth once daily for 4 days Blood-Glucose Meter monitoring kit (1 source) Start: 4 End: Blood-Glucose Meter monitoring kit Glucose Meter of Choice - Kit - Dx: Type 2 DM - Uncontrolled E11.65 1 Each 0 11/13/2023 11/14/2023 Active calcium carbonate 1250 mg oral tablet (20 sources) Start: 4 take 1 tablet by mouth once daily Start: 03-29-2017 End: 09-03-2023 take 1 tablet [...] 10 days. 20 capsule 05/14/2024 05/24/2024 Active cefdinir 300 mg oral capsule (2 sources) Cephalosporin Antibacterial Start: 5 cefuroxime 500 mg oral tablet (5 sources) [...] Quantity: 20 {Tablet} Refills: 0 Ordered: 11-Feb-2017 Emily Arteaga LPN Start : 28-Jul-2015 End : 11-Feb-2017 Inactive [...] (20 sources) Provitamin D2 Compound Start: 09-03-2023 Start: 10-20-2018 take 1 capsule by [facility] two times weekly Ergocalciferol 85548 UNIT Oral Capsule 1 (one) Capsule twice weekly for 0 days Quantity: 24 {Capsule} Refills: 1 Ordered: 20-Oct-2018 Mindi Dasilva DO, DO, Kathleen Start : 20-Oct-2018 Active Start: 07-11-2018 take 1 capsule by [facility] two times weekly Ergocalciferol 50016 UNIT Oral Capsule 1 (one) Capsule twice weekly for 0 days Quantity: 24 {Capsule} Refills: 0 Ordered: 11-Jul-2018 Mindi Dasilva DO, DO, Kathleen Start : 11-Jul-2018 Active Start: 04-21-2018 take 1 capsule by [facility] two times weekly Ergocalciferol 38656 UNIT Oral Capsule 1 (one) Capsule twice weekly for 0 days Quantity: 24 {Capsule} Refills: 0 Ordered: 21-Apr-2018 Mindi Dasilva DO, DO, Kathleen Start : 21-Apr-2018 Active Start: 04-23-2017 End: 09-03-2023 Ergocalciferol (Vitamin D2) (Vitamin D2) 50,000 UNIT capsule Discontinued 1.25 mg PO TUSA April 23, 2017 1:00am September 03, 2023 10:06am Start: 03-25-2017 take 1 capsule by [facility] every week VITAMIN D 50,000 unit capsule Take 1 capsule by mouth one time a week. 03/25/2017 Active Comment on above: 1 capsule one time a week. everolimus 10 mg oral tablet (20 sources) Kinase Inhibitor, mTOR Inhibitor Immunosuppressant Start: 04-11-19 End: 03-09-20 take 1 tablet by mouth once daily Comment on above: Take 1 tablet (10 mg ) by mouth once daily. exemestane 25 mg oral tablet (20 sources) Aromatase Inhibitor Start: 05-13-19 End: 05-20-19 take 1 tablet by mouth once daily Comment on above: Take 1 tablet by [facility] once daily. TAKE AFTER A MEAL. 3 ml insulin glargine 100 unt/ml pen injector (20 sources) Insulin Analog Start: 09-09-19 insulin glargine (LANTUS SOLOSTAR U-100 INSULIN) 100 [...] (Adjust Sig - Block E-Cancel) Start: 07-02-2024 Start: 05-05-2024 End: 07-14-2024 insulin glargine (LANTUS [...] in the MR contrast administration guidelines link lidocaine 25 mg/ml / prilocaine 25 mg/ml topical cream (19 sources) Antiarrhythmic, Amide Local Anesthetic Start: End: lidocaine-prilocain e (EMLA) 2.5-2.5 % cream Apply to affected area as needed. 15 g 11 11/30/2024 11/30/2025 Active LORazepam 0.5 mg oral tablet (20 sources) [...] 90 tablet 2 04/22/2024 07/21/2024 Active Start: 07-05-2023 End: 02-23-2024 take 1 tablet by mouth [...] days. 90 tablet 01/24/2024 02/23/2024 Active Start: 05-24-2023 End: 06-23-2023 take 1 [...] as needed for up to 30 days. meloxicam 15 mg oral tablet (20 sources) [...] th once daily methylPREDNISolone (1 source) Corticosteroid Start: 2023 End: 2023 methylPREDNISolone (MEDROL, ALEXEI,) 4 mg Dose-Pack Indications: Acute effusion of right ear Follow dosing instructions, take with food. 21 tablet 0 05/08/2023 05/14/2023 Active Comment on above: Follow dosing instru ctions, take with food. nitrofurantoin, macrocrystals 25 mg / nitrofurantoin, monohydrate 75 mg oral capsule (20 sources) Nitrofuran Antibacterial Start: 2024 End: 2024 take 1 capsule by mouth twice daily nitrofurantoin monohydrate and macrocrystal (MACROBID) 100 mg capsule Take 1 capsule by mouth two times a day for 7 days. FOR 7 DAYS. 14 capsule 12/16/2024 12/23/2024 Active Start: 09-10-2024 End: 09-17-2024 take 1 capsule by mouth twice daily [...] Comment on above: Take 1 capsule by [facility] twice daily for 5 days. ONETOUCH ULTRA [...] tablet (20 sources) Proton Pump Inhibitor Start: 2 take 1 tablet by mouth once daily Comment on above: Take 40 mg by mouth daily before breakfast. microencapsulated potassium chloride 20 meq extended release oral tablet (20 sources) Start: 5 End: 5 take 1 tablet by mouth twice daily potassium chloride ER (KLOR-CON) 20 mEq tablet TAKE 1 TABLET BY MOUTH TWICE A DAY 180 tablet 1 12/14/2024 Active Start: 09-03-2023 End: 10-09-2023 take 1 tablet by mouth once daily [...] 1 tablet once daily for 20 days. semaglutide (OZEMPIC) 0.25 mg or 0.5 mg [...] Comment on above: Take 1 tablet by [facility] twice daily for 3 days. Tirzepatide (1 source) Start: tirzepatide (MOUNJARO) 2.5 mg/0.5 mL pen injector (20 sources) Start: inject 2.5 mg by subcutaneous injection every week tirzepatide (MOUNJARO) 2.5 mg/0.5 mL pen injector Indications: Diabetes mellitus treated with injections of non-insulin medication (HCC) Inject 2.5 mg subcutaneously one time a week. 4 each 5 11/05/2024 Active Tirzepatide (Mounjaro) 2.5 mg/0.5 mL pen injector (1 source) Start: Tirzepatide (Mounjaro) 2.5 mg/0.5 mL pen injector Active 2.5 mg SC EVERY WEEK November 15, 2024 12:00am Tirzepatide (Tirzepatide 2.5 Mg/0.5 Ml Subcutaneous Pen Injector) 2.5 mg/0.5 mL pen injector (1 source) Start: Tirzepatide (Tirzepatide 2.5 Mg/0.5 Ml Subcutaneous Pen Injector) 2.5 mg/0.5 mL pen injector Active 2.5 mg SC EVERY WEEK November 15, 2024 12:00am traZODone hydrochloride 50 mg oral tablet (20 sources) Serotonin Reuptake Inhibitor Start: take 1 tablet by mouth at bedtime Start: 07-04-2022 End: 07-04-2023 take 1 tablet [...] Comment on above: [facility] ursodiol 500 mg oral tablet (20 sources) Bile Acid Start: 03-14-2024 take 1 tablet by mouth twice daily ursodiol (LEENA) 250 mg tablet Take 250 mg by mouth two times a day. 03/14/2024 Active Start: 03-29-2017 End: 07-02-2024 take 1 tablet by mouth once daily Start: 03-25-2017 End: 05-04-2024 take 1.5 tablets by mouth twice daily Ursodiol 500 mg tablet Take 1.5 tablets by mouth twice daily. 03/25/2017 05/04/2024 Discontinued (Duplicate Entry) take 3 tablets by mo [facility] once daily Leena Forte 500 MG Oral Tablet 3 qd (500 MG) Active Comment on above: 1.5 tablets twice da anatoliy. Take 1.5 tablets by mouth twice daily. vitamin b12 1 mg oral capsule (20 sources) Vitamin B12 Start: 04-23-2017 take 1 capsule by mouth once daily cyanocobalamin ( VITAMIN B-12) 1,000 mcg tab Take 500 mcg by mouth once daily. Active take 1 tablet by mouth once merry y cyanocobalamin (VITAMIN B-12) 1,000 mcg tab Take 1,000 mcg by mouth once daily. 0 Active take 5 tablets by mouth once lew ly VITAMIN B12, 100MCG (Oral Tablet) 5 qd (100 MCG) Active Comment on above: Take 1,000 mcg by [facility] once daily. Take 500 mcg by mout h once daily. dl-alpha tocopheryl acetate 100 unt oral capsule (20 sources) Start: 03-29-2017 Start: 03-29-2017 take 400 [facility] Vitamin E (Dl, Acetate) Active 400 UNIT PO daily March 29, 2017 1:00am Start: 09-09-2009 take 1 capsule by mo [facility] once daily VITAMIN E, 100UNIT (Oral Capsule) 1 Capsule Daily for 0 days Quantity: 90 {Capsule} Refills: 0 Ordered: 09-Sep-2009 Tasia Phillips RN Start : 09-Sep-2009 Active take 1 capsule by mo [facility] once daily alpha tocopheryl acetate (VITAMIN E) 400 unit capsule Take 400 Units by mouth once daily. Active take 1 capsule by mo [facility] once daily alpha tocopheryl acetate (VITAMIN E) 400 unit capsule Take 400 Units by mouth once daily. 0 Active Comment on above: Take 400 Units by [facility] once daily. Completed/Discontinued Medications Medication Drug Class(es) [...] / HYDROcodone bitartrate 5 mg oral tablet (12 sources) Opioid Agonist Start: 04-24-2017 End: 09-03-2023 [...] (4 sources) ACTAVIS 500mg bi d Active [id number] 200 actuat albuterol 0.09 mg/actuat metered dose [...] of breath. amoxicillin 500 mg oral capsule (6 sources) Penicillin-class Antibacterial Start: 06-26-19 15 End: 03-29-20 17 take 1 capsule by mouth every twelve hours Amoxicillin 500 MG capsule Discontinued 500 mg PO Q12H 10 0 June 25, 2014 12:00am March 29, 2017 3:41pm anastrozole 1 mg oral tablet (20 sources) Aromatase Inhibitor Start: 08-12-19 21 End: 08-10-19 23 take 1 tablet by mouth once daily anastrozole (ARIMIDEX) 1 mg tablet take 1 tablet by mouth once daily 90 tablet 3 08/11/2020 05/15/2021 Discontinued Comment on above: Take 1 tablet by severo th once daily. TAKE 1 TABLET DAILY aspirin 81 mg delayed release oral tablet (20 sources) Platelet Aggregation Inhibitor, Nonsteroidal Anti-inflammatory Drug Start: 10-09-19 18 End: 08-14-19 23 take 1 tablet by mouth once daily aspirin, enteric coated (ASPIRIN, ENTERIC COATED) 81 mg EC tablet Take 1 tablet by mouth once daily. 10/08/2017 08/13/2022 Discontinued Start: 04-04-2017 take 1 tablet by mouth once End: 07-16-2014 take 1 tablet by mouth [...] solution (2 sources) Start: 05-18-19 End: 05-19-19 25 take 75 mL intravenously every hour 75 mL/hr, INTRAVENOUS, CONTINUOUS, Starting on Sat05/18/24 at 1300, Until Sat05/19/24 at 0303 [id number] INC ORAL (20 sources) End: 11-04-19 24 take 1 tablet by mouth once daily [id number] INC ORAL Take 1 tablet by mouth once daily. 0 11/04/2023 Discontinued take 1 tablet by mouth once merry y [id number] ORAL Take 1 tablet by mouth once daily. 0 Active Comment on above: Take 1 tablet by severo th once daily. CANNABIDIOL, CBD, EXTRACT ORAL (2 [...] Quantity: 360 {Capsule} Refills: 0 Ordered: 18-Oct-2014 Otilia CONNELLYCayla Mayorga Start : 16-Jul-2014 End : 18-Oct-2014 Discontinued cephalexin 500 mg oral capsule (6 sources) Cephalosporin Antibacterial Start: 4 End: 4 [...] above: Take 1 capsule by mo [facility] twice daily for 5 days. cetirizine hydrochloride [...] Comment on above: Take 1 tablet by [facility] twice daily for 10 days. clarithromycin 500 [...] spit out) diclofenac 35 mg oral capsule (10 sources) Nonsteroidal Anti-inflammatory Drug Start: 015 End: 017 take 1 capsule by mouth twice daily Diclofenac Submicronized 35 MG capsule Discontinued 35 mg PO TWICE A DAY June 07, 2014 1:00am March 29, 2017 3:40pm Comment on above: Medication taken as needed. diphenhydrAMINE (1 source) Histamine-1 Receptor Antagonist Start: 025 End: 12.5 mg, INTRAVENOUS, NEEDED, 1 dose, Starting on Sat05/18/24 at 1250, Until Sat05/19/24 at 0303, Nausea/Vomiting - Second Line - Parenteral diphenhydrAMINE-maalox -lidocaine (BMX 1:1:1) 1:1:1 liqd (20 sources) Start: 024 End: take 5 mL by mouth every six hours as needed diphenhydrAMINE-maalo x-lidocaine (BMX 1:1:1) 1:1:1 liqd Indications: Stomatitis and mucositis Take 5 mL by mouth every 6 hours as needed. 140 mL 5 05/24/2023 07/05/2023 Start: 05-24-2023 End: 07-05-2023 take 5 mL by mouth every six hours as needed cqltglqmnsYQUYA-rctaes-fwcxtpqto (BMX 1: 1:1) 1:1:1 liqd Indications: Stomatitis and mucositis Take 5 mL by mouth every 6 hours as needed. 140 mL 5 05/24/2023 07/05/2023 Active Start: 05-24-2023 End: 05-24-2023 take 5 mL by mouth every six hours as needed pgztjpmhidRUNYC-mnzwkd-fgtbinpjq (BMX 1: 1:1) 1:1:1 liqd Indications: Stomatitis and mucositis Take 5 mL by mouth every 6 hours as needed. 140 mL 5 05/24/2023 05/24/2023 Discontinued End: 11-04-2023 ktwwvwcrwcVSMIS-ttaoqx-gedzq cynthia (BMX 1:1:1) 1:1:1 liqd Take by [...] above: Take 1 capsule by mo [facility] once daily. take 1 capsule by [facility] once daily 1 ml fentaNYL 0.05 mg/ml injection (1 source) Opioid Agonist Start: 05-18-19 End: 05-19-19 25 50 mcg, INTRAVENOUS, EVERY 5 MINUTES NEEDED, 2 doses, Starting on Sat05/18/24 at 1250, Until Sat05/19/24 at 0303, FIRST LINE THERAPY for moderate or severe pain, USE FOR MODERATE PAIN ONLY IF PATIENT IS UNABLE TO TOLERATE ORAL THERAPY 60 actuat formoterol fumarate 0.005 mg/actuat / mometasone furoate 0.2 mg/actuat metered dose inhaler (4 sources) Corticosteroid, beta2-Adrenergic Agonist Start: 07-11-19 16 End: 02-12-20 17 Dulera 200-5 MCG/ACT Inhalation Aerosol 1 (one) Aerosol Aerosol bid for 0 days Quantity: 1 {Inhaler} Refills: 0 Ordered: 11-Feb-2017 Emily Arteaga LPN Start : 11-Jul-2015 End : 11-Feb-2017 Inactive glipiZIDE er 10 mg 24 hr extended release oral tablet (20 sources) Sulfonylurea Start: 01-07-20 End: 02-25-20 24 take 1 tablet by mouth twice [...] Take 1 tablet by severo once daily. glyBURIDE 2.5 mg oral tablet (8 sources) Sulfonylurea Start: End: take 1 tablet [...] above: Take 1 tablet by severo daily with breakfast. hydroCHLOROthiazide 12.5 mg oral tablet (20 sources) Thiazide Diuretic Start: 2024 End: 2024 take 1 tablet by mouth once daily Hydrochlorothiazide 12.5 mg tablet Discontinued 12.5 mg PO daily November 02, 2024 12:00am November 18, 2024 12:12pm Start: 10-30-2024 take 1 capsule by mo [facility] once daily hydroCHLOROthiazide 12.5 mg capsule Take [...] mg by mouth once daily. 10/30/2024 Discontinued hydroCHLOROthiazide 12.5 mg / lisinopril 20 mg oral tablet (20 sources) Thiazide Diuretic, Angiotensin Converting Enzyme Inhibitor Start: 03-29-2017 take 1 tablet by mouth once daily Lisinopril-Hydrochlorothiazide Active 1 TABLET PO daily March 29, 2017 1:00am Start: 12-05-2016 End: 09-03-2023 Lisinopril-Hydrochlorothiazi de 20-12.5 mg tablet Discontinued 1 {tbl} PO daily March 29, 2017 1:00am September 03, 2023 10:05am Comment on above: Take 1 tablet by [...] by mouth every 6 hours as needed. 10 ml iron sucrose 20 mg/ml injection (4 sources) Parenteral Iron Replacement Start: 12-22-19 End: 12-22-19 200 mg, INTRAVENOUS, ONCE, 1 dose, On Sat12/21/24 at 1000 Start: 12-18-2024 End: 12-18-2024 200 mg, INTRAVENOUS, ONCE, 1 dose, On Sat12/18/24 at 1500 Start: 12-15-2024 End: 12-15-2024 200 mg, INTRAVENOUS, ONCE, 1 dose, On Tu12/15/24 at 1100 Start: 12-11-2024 End: 12-11-2024 200 mg, INTRAVENOUS, ONCE, 1 dose, On Sat12/11/24 at 0900 Lactobacillus acidophilus (16 sources) End: 07-04-2022 Lactobacillus acidophilus (P ROBIOTIC ORAL) Take by mouth once daily. Super Now 0 07/04/2022 Discontinued Lactobacillus ac idophilus (PROBIOTIC ORAL) Take by mouth once daily. Super Now 0 Active Comment on above: Take by mouth once d aily. Super Now levoFLOXacin 500 mg oral tablet (4 sources) Quinolone Antimicrobial Start: 07-11-19 End: 07-18-19 16 take 1 tablet by mouth once daily LEVAQUIN, 500MG (Oral Tablet) 1 Tablet daily for 7 days Quantity: 7 {Tablet} Refills: 0 Ordered: 11-Jul-2015 Mindi Dasilva DO, DO, Kathleen Start : 11-Jul-2015 End : 18-Jul-2015 Inactive lisinopril 10 mg oral tablet (10 sources) Angiotensin Converting Enzyme Inhibitor Start: 10-15-19 14 End: 03-29-20 17 take 1 tablet by mouth once daily Lisinopril 10 MG tablet Discontinued 10 mg PO DAILY June 07, 2014 1:00am March 29, 2017 3:40pm losartan potassium 25 mg oral tablet (20 sources) Angiotensin 2 Receptor Anahy Start: 11-16-19 End: 11-19-19 take 2 tablets by mouth once daily Losartan 25 mg tablet Discontinued 50 mg PO DAILY November 15, 2024 12:00am November 18, 2024 12:12pm Start: 11-02-2024 End: 11-15-2024 take 1 tablet by mouth once daily Losartan 25 mg tablet Discontinued 25 mg PO DAILY 30 4 November 02, 2024 11:47am November 15, 2024 10:23pm Start: 11-02-2024 End: 11-02-2024 take 1 tablet [...] mg tablet Discontinued 50 mg PO DAILY 90 3 October 09, 2023 10:48am July 02, 2024 11:14am Start: 04-11-2023 End: 05-07-2024 take 1 tablet by mouth once daily Losartan 25 mg tablet Discontinued 25 mg PO DAILY September 03, 2023 12:00am October 09, 2023 10:48am Comment on above: Take 1 tablet by severo once daily. magnesium oxide 400 mg oral tablet (20 sources) End: 4 take 1 tablet by mouth once daily magnesium oxide 400 mg magnesium tab Take 1 tablet by mouth once daily. 0 07/18/2023 Discontinued Comment on above: Take 1 tablet by severo once daily. melatonin 10 mg oral capsule (2 sources) End: 1 take 1 capsule by mouth once daily at bedtime melatonin 10 mg cap Take 10 mg by mouth daily at bedtime. 02/15/2021 Discontinued 1 ml meperidine hydrochloride 25 mg/ml cartridge (1 source) Opioid Agonist Start: 5 End: 5 12.5 mg, INTRAVENOUS, EVERY 10 MINUTES NEEDED, 2 doses, Starting on 05/18/24 at 1250, Until Sat05/19/24 at 0303, for shivering, August Repeat 12.5 mg in 10 minutes X1 for Continued Shivering metFORMIN hydrochloride 500 mg oral tablet (10 sources) Biguanide Start: End: take 1 tablet by mouth twice [...] mg by mouth two times a day. metoprolol tartrate 50 mg oral tablet (20 sources) beta-Adrenergic Anahy Start: 12-09-2024 End: 12-12-2024 take 1 tablet by mouth every hour Metoprolol Tartrate 50 mg tablet Discontinued 50 mg PO ONCE 2 0 December 09, 2024 12:00am December 11, 2024 12:00am December 12, 2024 12:08am Take one tab one hour prior to your test; take additional tab with you to the testing center with you Start: 06-05-2024 End: 11-18-2024 take 1 tablet by mouth once daily Metoprolol Succinate 25 mg tablet extended release 24 hr Discontinued 25 mg PO daily July 02, 2024 12:00am November 18, 2024 12:12pm moxifloxacin 400 mg oral tablet (4 sources) Quinolone Antimicrobial Start: 01-28-2009 End: 03-18-2009 take 1 tablet by mouth once daily AVELOX, 400MG (Oral Tablet) 1 (one) Tablet Daily for 0 days Quantity: 10 {Tablet} Refills: 0 Ordered: 28-Jan-2009 MARCELO Morales Start : 28-Jan-2009 End : 18-Mar-2009 Inactive naproxen sodium 220 mg oral tablet (4 sources) Nonsteroidal Anti-inflammatory Drug Start: 08-29-2011 End: 09-08-2011 take 2 tablets by mouth twice daily at mealtime ALEVE, 220MG (Oral Tablet) 2 (two) Tablet bid with food for 10 days Refills: 0 Ordered: 08-Oct-2011 Mindi Dasilva DO, DO, Kathleen Start : 29-Aug-2011 End : 08-Sep-2011 Inactive 2 ml ondansetron 2 mg/ml injection (20 sources) Serotonin-3 Receptor Antagonist Start: 05-18-2024 End: 05-19-2024 4 mg, INTRAVENOUS, NEEDED, 1 dose, Starting [...] dose, Starting on Sat05/18/24 at 1250, Until Sat05/18/24 at 1404, Moderate [...] th once daily. TAKE 1 TABLET DAILY potassium chloride iv piggyback 60 mEq (20 mEq x 3 doses) (1 source) Start: 11-21-19 End: 11-21-19 20 mEq, INTRAVENOUS, at 50-100 mL/hr, Administer over 1-2 Hours, EVERY 1 HOUR, 3 doses, First dose on Sat11/20/24 at 1200, Last dose on Sat11/20/24 at 1400, Dispensed as potassium chloride 20 mEq/100 mL x 3 = 60 mEq. Potassium 2.6 to 3 infuse 60mEq KCl IV over 3 hours. NONCYTOTOXIC VESICANT If ordered with infusion rate range, start with maximum infusion rate and decrease rate if infusion is not tolerated predniSONE 20 mg oral tablet (4 sources) Start: 07-18-19 End: 07-24-19 take 1 tablet by mouth [...] sources) Start: 11-06-2022 take 3 tablets by [facility] once daily Ribociclib 600 mg/day (200 mg [...] Discontinued Start: 11-01-2022 take 3 tablets by [facility] once daily Ribociclib 600 mg/day (200 mg [...] period to complete a 28-day treatment cycle. 1000 ml sodium chloride 9 mg/ml injection (1 source) Start: 11-20-2024 End: 11-20-2024 500 mL, INTRAVENOUS, at 500 mL/hr, Administer over 1 Hours, ONCE, 1 dose, On Sat11/20/24 at 1500 Start: 11-20-2024 End: 11-20-2024 500 mL, INTRAVENOUS, at 500 mL/hr, Administer over 1 Hours, ONCE, 1 dose, On Sat11/20/24 at 1500 spironolactone 25 mg oral tablet (20 sources) Aldosterone Antagonist Start: 05-26-2024 End: 07-15-2024 take 1 tablet by mouth once daily Spironolactone 25 mg tablet Discontinued 25 mg PO daily July 02, 2024 12:00am July 02, 2024 11:28am triamcinolone acetonide 1 mg/ml topical cream (15 sources) Corticosteroid Start: 01-09-2023 triamcinolone acetonide (KENALOG) 0.1 % cream Apply to affected area two times a day. 30 g 1 01/09/2023 Active Comment on above: Apply to affected ar ea two times a day. Turmeric extract (2 sources) End: 02-15-2021 take 1 tablet by mouth once daily TURMERIC ORAL Take 1 tablet by mouth once daily. 02/15/2021 Discontinued 20 actuat zanamivir 5 mg/actuat dry powder inhaler (4 sources) Neuraminidase Inhibitor Start: 01-28-2009 End: 03-18-2009 RELENZA DISKHALER, 5MG/BLISTER (Inhalation Aerosol Powder Breath Activated) 2 (two) Aero Pow Br Act Twice daily for 0 days Quantity: 1 {Aero_Pow_Br_Act} Refills: 0 Ordered: 28-Jan-2009 MARCELO Morales Start : 28-Jan-2009 End : 18-Mar-2009 Inactive Comments: for 5 days Comment on above: for 5 days 100 ml zoledronic acid 0.04 mg/ml injection (1 source) Bisphosphonate Start: 04-13-2024 End: 04-13-2024 4 mg, INTRAVENOUS, Administer over 15 Minutes, [...] Gallstone; Translations: [Disorder of gallbladder] 03-14-2017 Episodic Calculus of urinary tract (3 sources) Kidney stone; Translations: [Calculus of kidney] Onset: 5 12-16-2024 Episodic Cancer of breast (20 sources) Malignant neoplasm of female breast; Translations: [Malignant neoplasm of unspecified site of left female breast] Onset: 8 Chronic Cardiac dysrhythmias (10 sources) Palpitations; Translations: [Palpitations] Onset: 5 05-26-2024 Episodic Cataract (1 source) Age-related cataract of left [...] chemotherapy induced anemia] Onset: 8 06-12-2017 Chronic Coronary atherosclerosis and other heart disease (2 sources) Calcification of coronary artery; Translations: [Atherosclerotic heart disease of [place] coronary artery without angina pectoris] Onset: 5 12-17-2024 Chronic Deficiency and other anemia (1 source) Anemia co-occurrent and due to chronic kidney disease stage 3; Translations: [Anemia due to stage 3b chronic kidney disease (HCC)] 12-01-2024 Chronic Deficiency and other anemia (20 sources) Anemia; Translations: [Anemia in stage 3b chronic kidney disease] Onset: 5 12-03-2024 Chronic Deficiency and other anemia (2 sources) Anemia in chronic kidney disease; Translations: [Anemia in stage 3b chronic kidney disease (HCC)] Onset: 5 Chronic Deficiency and other anemia (1 source) Anemia; Translations: [Anemia, unspecified] 05-04-2024 Episodic Deficiency and other anemia (4 sources) Iron deficiency anemia; Translations: [Iron deficiency anemia, unspecified] 11-17-2024 Episodic Deficiency and other anemia (1 source) Iron deficiency anemia, unspecified; Translations: [Iron deficiency anemia, unspecified] Onset: 5 Episodic Deficiency and other anemia (2 sources) Deficiency and other anemia; Translations: [Anemia in stage 3b chronic kidney disease (HCC)] Onset: 5 Diabetes mellitus with complications (12 sources) Type II diabetes mellitus uncontrolled; Translations: [Type 2 diabetes mellitus with hyperglycemia] Onset: 4 08-20-2023 Chronic Diabetes mellitus without complication (20 sources) Newly diagnosed diabetes; Translations: [Type 2 diabetes mellitus without complications] Onset: 5 07-09-2023 Chronic Disorders of lipid metabolism (20 sources) Hypercholesterolemia; [...] and await flu but story isnt classic Fluid and electrolyte disorders (20 sources) Dehydration; Translations: [Dehydration] Onset: 3 10-30-2022 Episodic Genitourinary symptoms and ill-defined conditions (15 sources) Increased frequency of urination; Translations: [Frequency [...] Episodic Other diseases of kidney and ureters (6 sources) Acute renal insufficiency; Translations: [Disorder of kidney and ureter, unspecified] 09-23-2024 Episodic Other diseases of veins and lymphatics (20 sources) Lymphedema of left upper limb; Translations: [Lymphedema, not elsewhere classified] Onset: 4 07-15-2023 Chronic Other diseases of veins and lymphatics (7 sources) Lymphedema; Translations: [Lymphedema, not elsewhere classified] 09-03-2024 Chronic Other diseases of veins and lymphatics (4 sources) Lymphedema, not elsewhere classified; Translations: [Lymphedema of left arm] Onset: 4 Chronic Other eye disorders (1 source) Excessive tear production; Translations: [Unspecified epiphora, bilateral] 03-18-2024 Episodic Other gastrointestinal disorders (20 sources) Malabsorption - iron; Translations: [Intestinal malabsorption, unspecified] Onset: 5 12-03-2024 Chronic Other gastrointestinal disorders (1 source) Intestinal malabsorption, unspecified; Translations: [Iron malabsorption (HCC)] Onset: 5 Chronic Other gastrointestinal disorders (4 sources) Dysphagia Episodic [...] cough] 04-28-2024 Episodic Other lower respiratory disease (4 sources) Dyspnea; Translations: [Dyspnea, unspecified] 05-29-2024 Episodic Other [...] excess calories] Onset: 3 08-09-2022 Chronic Other nutritional; endocrine; and metabolic disorders (4 sources) Hypocalcemia; Translations: [Hypocalcemia] 11-17-2024 Chronic Other nutritional; endocrine; and metabolic disorders (1 source) Hypocalcemia; Translations: [Hypocalcemia] Onset: 5 Chronic Other screening for suspected conditions (not [...] diabetes mellitus] 03-14-2017 Episodic Residual codes; unclassified (11 sources) History of breast reconstruction; Translations: [Other specified postprocedural states] 03-24-2024 Episodic Residual codes; unclassified (9 sources) Postoperative state; Translations: [Other specified postprocedural states] 05-25-2024 Episodic Residual codes; unclassified (6 sources) History of antineoplastic chemotherapy; Translations: [Personal history of antineoplastic chemotherapy] 09-03-2023 Episodic Residual codes; unclassified (1 source) Localized edema; Translations: [Localized edema] Onset: 5 Episodic Residual codes; unclassified (1 source) Personal history of antineoplastic chemotherapy; Translations: [Personal history of antineoplastic chemotherapy] Onset: 5 Episodic Secondary malignancies (20 sources) [...] mediastinal lymph node (HCC)] Onset: 3 Chronic Secondary malignancies (3 sources) Secondary and unspecified malignant neoplasm of axilla and upper limb lymph nodes; Translations: [Secondary and unspecified malignant neoplasm of axilla and upper limb lymph nodes] Onset: 8 Chronic Spondylosis; intervertebral disc disorders; other back [...] from Abnormal glucose tolerance test (GTT)) Unclassified (8 sources) Autogenerated Problem Onset: 5 11-20-2024 Unclassified (1 source) Radiology NM Onset: 4 Unclassified (1 source) port check Onset: 5 Unclassified (1 source) Acute cough; Translations: [Acute cough] Onset: 5 Urinary tract infections (20 sources) Acute cystitis; Translations: [Acute cystitis without hematuria] Onset: 5 Episodic Viral infection (1 source) Disease caused by 2019-nCoV; Translations: [COVID-19] Episodic Past or Other Problems Problem Classification Problem Date Documented Da te Episodic/Chronic Abdominal pain (4 sources) Abdominal tenderness of left lower quadrant; Translations: [Left lower quadrant rebound abdominal tenderness] Onset: 4 07-08-2023 Episodic Acute and unspecified renal failure (15 sources) Acute injury of kidney; Translations: [Acute kidney failure, unspecified] Onset: 5 Episodic Administrative/social admission (7 sources) Medical examinations/reports status; Translations: [Patient encounter status] Onset: 4 03-14-2017 Episodic Cancer of breast (12 sources) History of malignant neoplasm of breast; Translations: [Personal history of malignant neoplasm of breast] Onset: 5 03-24-2024 Episodic Diabetes mellitus without complication (14 sources) Hyperglycemia; Translations: [Abnormal glucose tolerance test] Onset: 5 03-14-2017 Episodic Comment on above: pt refused metformin will work on diet and exercise Diseases of mouth; excluding dental (20 sources) Inflammatory disease of mucous membrane; Translations: [Other forms of stomatitis] Onset: 8 06-28-2017 Episodic E Codes: Adverse effects of medical drugs (2 sources) Adverse effect of antineoplastic and immunosuppressive drugs, initial encounter; Translations: [Chemotherapy induced cardiomyopathy (HCC)] Onset: 8 Episodic Nonmalignant breast conditions (10 sources) Breast seroma; Translations: [Other specified disorders of breast] Onset: 5 06-04-2024 Episodic Nonspecific chest pain (20 sources) Musculoskeletal chest pain; Translations: [Other chest pain] Onset: 8 11-21-2017 Episodic Other aftercare (2 sources) 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; Translations: [Diabetes mellitus treated with insulin (HCC)] Onset: 5 Episodic Other circulatory [...] [Swelling of limb] Onset: 5 Episodic Other diseases of kidney and ureters (2 sources) Disorder of kidney and ureter, unspecified; Translations: [Acute renal insufficiency] Onset: 5 Episodic Other gastrointestinal disorders (20 [...] or sexually transmitted disease) Residual codes; unclassified (10 sources) Estrogen receptor positive status [ER+]; Translations: [Malignant neoplasm of lower-outer quadrant of left breast of female, estrogen receptor positive (HCC)] Onset: 8 Episodic Residual codes; unclassified (5 sources) Other specified postprocedural states; Translations: [Post-operative state] Onset: 5 Episodic Residual codes; unclassified (1 source) Asymptomatic menopausal state; Translations: [Asymptomatic menopausal state] Onset: 5 Episodic Skin and subcutaneous tissue infections (4 sources) Cellulitis of left upper limb; Translations: [Cellulitis of left upper limb] Onset: 5 10-13-2024 Episodic Unclassified (12 sources) Well Woman Exam [...] Test Name Value Interpretation Reference Range Facility CNTHERAPY 01-26-2025 CNTHERAPY OT/PT/Speech Visit ([facility]) EDVINPAT WHELAN ANGELITA ([id number]) 1960 F [place] Date Time Provider Department 01/26/25 9:45 AM NOE JACKSONCHRISTIANO Date Time Provider Department Center 01/26/2025 9:45 AM [id number] [id number] [facility] N Reason for Visit: Physical Therapy [503] Primary Visit Diagnosis:Lymphedema of left arm [I89.0] Allergies As of Date: 01/26/2025 Noted Allergy Reaction AMOXICILLIN 11/15/2022 2 - Rash Comments: rash arms trunk neck face, itching Chills Tolerates Ancef Date Reviewed: 01/26/2025 Reviewed by: Charlene Kincaid RN - Fully Assessed Prescriptions as of 01/26/2025 - nitrofurantoin monohydrate and macrocrystal (MACROBID) 100 mg capsule Take 1 capsule by mouth two times a day for 7 days. - exemestane (AROMASIN) 25 mg tablet Take 1 tablet by mouth once daily. - insulin glargine (LANTUS SOLOSTAR U-100 INSULIN) 100 unit/mL (3 mL) Inject 28 Units subcutaneously every morning. - atorvastatin (LIPITOR) 40 mg tablet Take 1 tablet by mouth once daily. - potassium chloride ER (KLOR-CON) 20 mEq tablet TAKE 1 TABLET BY MOUTH TWICE A DAY - lidocaine-prilocaine (EMLA) 2.5-2.5 % cream Apply to affected area as needed. - losartan (COZAAR) 100 mg tablet Take 0.5 tablets by mouth every afternoon. - DROPLET PEN NEEDLE 31 gauge x 3/16 1 each two times a day. - amLODIPine (NORVASC) 5 mg tablet Take 5 mg by mouth once daily. - traZODone (DESYREL) 50 mg tablet Take 1 tablet by mouth daily at bedtime. - ursodiol (LEENA) 250 mg tablet Take 250 mg by mouth. 3 tabs in the AM and 2 tabs in the PM - everolimus, antineoplastic, (AFINITOR) 10 mg tablet [...] times a day. Insulin Dep? No - pantoprazole DR (PROTONIX) 40 mg tablet Take 40 mg by mouth daily before breakfast. - ascorbic acid, vitamin C, (VITAMIN C) 500 mg tablet Take 500 mg by mouth once daily. Last dos 01/06/25 - alpha tocopheryl acetate (VITAMIN E) 400 unit capsule Take 400 Units by mouth once daily. Last dose 01/06/25 - cyanocobalamin (VITAMIN B-12) 1,000 mcg tab Take 1,000 mcg by mouth once daily. Last dose 01/06/25 - VITAMIN D 50,000 unit capsule Take 1 capsule by mouth one time a week. - CALCIUM CARBONATE (CALCIUM 500 ORAL) Take 1 tablet by mouth once daily. Last dose 01/06/25 [facility] CNTHERAPYon 01-21-2025 CNTHERAPY OT/PT/Speech Visit ([facility]) PAT SORTO ([id number]) 1960 F [place] Date Time Provider Department 01/21/25 10:15 AM MILAGROS BROWN Date Time Provider Department Center 01/21/2025 10:15 AM [id number] Reason for Visit: PT Progress Note [6726] Primary Visit Diagnosis:Lymphedema of left arm [I89.0] Allergies As of Date: 01/21/2025 Noted Allergy Reaction AMOXICILLIN 11/15/2022 2 - Rash Comments: rash arms trunk neck face, itching Chills Tolerates Ancef Date Reviewed: 01/19/2025 Reviewed by: Angélica Andrade, FE - Fully Assessed Prescriptions as of 01/22/2025 - nitrofurantoin monohydrate and macrocrystal (MACROBID) 100 mg capsule Take 1 capsule by mouth two times a day for 7 days. - exemestane (AROMASIN) 25 mg tablet Take 1 tablet by mouth once daily. - insulin glargine (LANTUS SOLOSTAR U-100 INSULIN) 100 unit/mL (3 mL) Inject 28 Units subcutaneously every morning. - atorvastatin (LIPITOR) 40 mg tablet Take 1 tablet by mouth once daily. - potassium chloride ER (KLOR-CON) 20 mEq tablet TAKE 1 TABLET BY MOUTH TWICE A DAY - lidocaine-prilocaine (EMLA) 2.5-2.5 % cream Apply to affected area as needed. - losartan (COZAAR) 100 mg tablet Take 0.5 tablets by mouth every afternoon. - DROPLET PEN NEEDLE 31 gauge x 3/16 1 each two times a day. - amLODIPine (NORVASC) 5 mg tablet Take 5 mg by mouth once daily. - traZODone (DESYREL) 50 mg tablet Take 1 tablet by mouth daily at bedtime. - ursodiol (LEENA) 250 mg tablet Take 250 mg by mouth. 3 tabs in the AM and 2 tabs in the PM - everolimus, antineoplastic, (AFINITOR) 10 mg tablet TAKE 1 TABLET ONCE DAILY - Sodium Fluoride, Dental Rinse, 0.2 % SWISH 10 ML BY MOUTH THEN SPIT ONCE WEEKLY - diphenhydrAMINE-Acetami nophen (TYLENOL PM EXTRA STRENGTH) 25-500 mg tab Take 1 tablet by mouth at bedtime as needed. - [employer] Pool TechnologiesTOUCH ULTRA PLUS TEST strp 1 Each two times a day. E11.65; No insulin - Lancets Use with blood glucose test two times a day. Insulin Dep? No - blood sugar diagnostic (BLOOD GLUCOSE TEST) test strip Use with blood glucose test two times a day. Insulin Dep? No - pantoprazole DR (PROTONIX) 40 mg tablet Take 40 mg by mouth daily before breakfast. - ascorbic acid, vitamin C, (VITAMIN C) 500 mg tablet Take 500 mg by mouth once daily. Last dos 01/06/25 - alpha tocopheryl acetate (VITAMIN E) 400 unit capsule Take 400 Units by mouth once daily. Last dose 01/06/25 - cyanocobalamin (VITAMIN B-12) 1,000 mcg tab Take 1,000 mcg by mouth once daily. Last dose 01/06/25 - VITAMIN D 50,000 unit capsule Take 1 capsule by mouth one time a week. - CALCIUM CARBONATE (CALCIUM 500 ORAL) Take 1 tablet by mouth once daily. Last dose 01/06/25 [facility] ANES POSTPROC EVALon 025 ANES POSTPROC EVAL HNO ID: [id number] Author: LILIAN RINCON DO Service: Anesthesiology Author Type: Anesthesiologist Type: Anesthesia Postprocedure Evaluation Filed: 01/19/2025 16:41 Note Text: POST ANESTHESIA EVALUATION NOTE : 1960 Procedure Summary Date: 01/19/25 Room / Location: OR 08 / OR Anesthesia Start: 1454 Anesthesia Stop: 1613 Procedures: EXTRACORPOREAL SHOCKWAVE LITHOTRIPSY UNILATERAL (Right: Abdomen) INSERTION STENT DOUBLE J (Right: Abdomen) Diagnosis: Renal stones (Renal stones [N20.0]) Surgeons: Garth Reza MD Responsible Provider: Lilian Rincon DO Anesthesia Type: general ASA Status: 3 Anesthesia Type: general Airway Type: LMA Last Vitals Vitals Value Taken Time BP 161/90 01/19/25 16:30 Temp 36.6 ?C (97.8 ?F) 01/19/25 16:12 Pulse 80 01/19/25 16:38 Resp 16 01/19/25 16:30 SpO2 100 % 01/19/25 16:38 Vitals shown include unfiled device data. Post Anesthesia Patient Status Patient Evaluation: PACU. PACU/ICU Patient Condition: stable. Anticipated Disposition: phase 2 then home. Neurological Status: aware and responsive. Pulmonary Status: breathing comfortably on room air Airway Control: returned to baseline unsupported. Cardiovascular Status: stable. Pain Management: satisfactory to patient Postoperative Hydration: acceptable. Intraoperative Events: no significant anesthesia events Post Operative Nausea/Vomiting Status: no significant post operative nausea or vomiting Recommendation: continue current plan of care. Anesthesia Observations No Documentation SIGNATURE: Lilian Rincon DO PATIENT NAME: Pat Sorto DATE: January 19, 2025 TIME: 4:41 PM CSN: [id number] [facility] ANES PRE-OPon 01-19-2025 ANES PRE-OP HNO ID: [id number] Author: NOBLE MORENO DO Service: ? Author Type: Anesthesiologist Type: Anesthesia Preprocedure Evaluation Filed: 01/19/2025 14:17 Note Text: ANESTHESIOLOGY DAY OF SURGERY NOTE : 1960 Procedure Information Date/Time: 01/19/25 1430 Procedures: EXTRACORPOREAL SHOCKWAVE LITHOTRIPSY UNILATERAL (Right: Abdomen) INSERTION STENT DOUBLE J (Right: Abdomen) Location: MR OR 08 / MR OR Surgeons: Garth Reza MD Estimated body mass index is 29.18 kg/m? as calculated from the following: Height as of this encounter: 167.6 cm (5' 6). Weight as of this encounter: 82 kg (180 lb 12.4 oz). Most recent hematocrit and potassium results: Hematocrit 30.4 01/18/2025 Potassium 3.7 01/18/2025 Hemoglobin (g/dL) Date Value 01/18/2025 10.6 02/15/2021 12.0 Hematocrit (%) Date Value 01/18/2025 30.4 02/15/2021 35.5 WBC (k/uL) Date Value 01/18/2025 6.69 02/15/2021 7.16 Platelet Count (k/uL) Date Value 01/18/2025 208 02/15/2021 214 CMP: Glucose 207 01/18/2025 BUN 30 01/18/2025 Creatinine, Whole Blood (iSTAT) 1.25 01/18/2025 Sodium 140 01/18/2025 Potassium 3.7 01/18/2025 Chloride 105 01/18/2025 CO2 24 01/18/2025 Protein, Total 7.3 01/18/2025 Albumin 4.0 01/18/2025 Calcium 9.5 01/18/2025 Alkaline Phosphatase 71 01/18/2025 Bilirubin, Total 0.3 01/18/2025 AST 20 01/18/2025 ALT 16 01/18/2025 Relevant Problems ANESTHESIA (within normal limits) CARDIO (+) Hypertension ENDO (+) Type 2 diabetes mellitus without complication, with long-term current use of insulin (HCC) GI (+) Gastroesophageal reflux disease -RENAL (+) Primary biliary cirrhosis (HCC) Neurology (+) Chemotherapy-induced neuropathy (HCC) Cardiovascular (+) Chemotherapy-induced cardiomyopathy (HCC) Nephrology (+) Anemia in stage 3b chronic kidney disease (HCC) Musculoskeletal (+) Lymphedema of left arm Other (+) History of radiation therapy (+) 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 Tracheostomy tube not present Mallampati: II. TM distance: >3 FB. Neck ROM: full ROM without neurological symptoms. Mouth opening: >3 FB. Short neck: no. Thick neck: no Microretrognathia/Micro nagthia/Recessed Chin: No DENTAL Dental findings: teeth intact and caps/crowns. Additional exam findings: yes. CARDIOVASCULAR Rhythm: regular Rate: normal Additional comments: mediport. PULMONARY Normal pulmonary observations. Other findings: AANDOx3. Lymphedema of LUE. II - ANESTHESIA PLAN ASA Score: 3 Anesthetic Plan: general Airway type: LMA The patient is not a current smoker. NPO Status: adequate Monitoring Plan Monitoring plan: standard ASA. Post Procedure Analgesic Plan Postoperative analgesic plan: parenteral or oral opioids and multimodal analgesia. Informed Consent Anesthetic risks, benefits, alternatives, personnel and consent discussed: yes. Patient / Responsible Republican agrees to proceed: yes Patient / Surrogate agrees to blood products: blood products not planned Significant changes in the patient condition since the History and Physical, not otherwise documented in primary service progress note: no. Potential Anesthesia issues that may suggest increased risk of complications or contraindication to planned procedure: none. Discussed the possibility of lip / dental damage: yes Vitals Value Taken Time BP 177/104 01/19/25 13:05 Pulse 87 01/19/25 13:04 Resp 18 01/19/25 13:03 Temp 36.3 ?C (97.4 ?F) 01/19/25 13:03 SpO2 98 % 01/19/25 13:04 Vitals shown include unfiled device data. Facility-Administered Medications as of 01/19/2025 Medication Dose Route Frequency lidocaine (PF) 10 mg/mL (1 %) 1-2 mg injection (XYLOCAINE) 0.1-0.2 mL INTRADERMAL PRN lactated ringers iv infusion 5-30 mL/hr INTRAVENOUS CONTINUOUS NaCl 0.9% iv flush bag 20 mL INTRAVENOUS PRN clindamycin iv piggyback 900 mg in D5W 50 mL (CLEOCIN) 900 mg INTRAVENOUS Pre-Op Once NaCl 0.9% iv infusion 30 mL/hr INTRAVENOUS CONTINUOUS lactated ringers iv infusion 75 mL/hr INTRAVENOUS CONTINUOUS acetaminophen 650 mg tab(s) (TYLENOL) 650 mg ORAL q 4 H PRN oxyCODONE-acetaminophen 5-325 mg 1 tablet (PERCOCET) 1 tablet ORAL q 4 H PRN morphine 4 mg injection 4 mg INTRAVENOUS q 2 H PRN ondansetron orally disintegrating 4 mg tab(s) (ZOFRAN ODT) 4 mg ORAL q 6 H PRN Or ondansetron (PF) 4 mg injection (ZOFRAN) 4 mg INTRAVENOUS q 6 H PRN Outpatient Medications as of 01/19/2025 Medication Sig lidocaine-prilocaine (EMLA) (more content not included)... Normal [facility] ECG COMPLETEon 01-19-2025 ECG COMPLETE Ventricular Rate : 8 3 BPM Atrial Rate : 83 BPM P-R Interval : 140 ms QRS Duration : 90 ms Q-T Interval : 390 ms QTC Calculation(Bazett) : 458 ms Calculated P [place] : 38 degrees Calculated R [place] : -4 degrees Calculated T [place] : 46 degrees Normal sinus rhythm Moderate voltage criteria for LVH, may be normal variant ( R in aVL , Mukund product ) Borderline ECG No previous ECGs available Confirmed by JR RAJPUT MD ([id number]) on 01/24/2025 9:55:41 AM NAME : PAT SORTO PID : [id number] : 1960 Gender : Female Race : ORD : [id number] Procedure Date : Jan 19 2025 13:29:26 Edit Date : Jan 24 2025 09:55:47 Diagnosis: Normal sinus rhythm Moderate voltage criteria for LVH, may be normal variant ( R in aVL , Mukund product ) Borderline ECG No previous ECGs available Confirmed by JR RAJPUT MD ([id number]) on 01/24/2025 9:55:41 AM Test Reason : STAT Location : 23 : SURG MRORPL Overread By : JR RAJPUT MD Edited By : JR RAJPUT MD Referred By : , Acquired by : TONY PABLO [facility] HISTORY PHYSICALon HISTORY PHYSICAL HNO ID: [id number] Author: GARTH REZA MD Service: Urology Author Type: Physician Type: H&P Filed: 01/19/2025 14:06 Note Text: The patient had a recent PET CT scan on 10/26/2024 that revealed a large right renal pelvis stone not very well-seen on a KUB. The plan will be cystoscopy stent placement possible retrograde pyelogram and ESWL. Since the stone may be difficult to identify a follow-up later ureteroscopy possible lasering basketing to clear out any stone fragments since it is such a large stone and not readily seen on plain x-ray. Review of Systems LAB No results found for: PSA, PSASC Creatinine Date Value Ref Range Status 12/15/2024 1.08 (H) 0.58 - 0.96 mg/dL Final GLUCOSE UA (POCT) (mg/dL) Date Value 12/16/2024 Negative BILIRUBIN UA (POCT) (no units) Date Value 12/16/2024 Negative KETONE UA (POCT) (mg/dL) Date Value 12/16/2024 Negative SPECIFIC GRAVITY UA (POCT) (no units) Date Value 12/16/2024 1.020 HEMOGLOBIN/BLOOD UA (POCT) (no units) Date Value 12/16/2024 Large (A) PH UA (POCT) (no units) Date Value 12/16/2024 5.5 PROTEIN UA (POCT) (mg/dL) Date Value 12/16/2024 30 (A) UROBILINOGEN UA (POCT) (E.U./dL) Date Value 12/16/2024 0.2 NITRITE UA (POCT) (no units) Date Value 12/16/2024 Negative LEUKOCYTES UA (POCT) (no units) Date Value 12/16/2024 Moderate (A) COLOR UA (POCT) (no units) Date Value 12/16/2024 Yellow CLARITY UA (POCT) (no units) Date Value 12/16/2024 Clear ] MEDICATIONS CURRENT MEDICATIONS potassium chloride ER (KLOR-CON) 20 mEq tablet TAKE 1 TABLET BY MOUTH TWICE A DAY lidocaine-prilocaine (EMLA) 2.5-2.5 % cream Apply to affected area as needed. insulin glargine (LANTUS SOLOSTAR U-100 INSULIN) 100 unit/mL (3 mL) Inject 30 Units subcutaneously every morning. DROPLET PEN NEEDLE 31 gauge x 3/16 1 each two times a day. amLODIPine (NORVASC) 5 mg tablet Take 5 mg by mouth once daily. traZODone (DESYREL) 50 mg tablet Take 1 tablet by mouth daily at bedtime. ursodiol (LEENA) 250 mg tablet Take 250 mg by mouth two times a day. everolimus, antineoplastic, (AFINITOR) 10 mg tablet TAKE 1 TABLET ONCE DAILY Sodium Fluoride, Dental Rinse, 0.2 % SWISH 10 ML BY MOUTH THEN SPIT ONCE WEEKLY diphenhydrAMINE-Acetami nophen (TYLENOL PM EXTRA STRENGTH) 25-500 mg tab Take 1 tablet by mouth at bedtime as needed. Solar Pool TechnologiesTOUCH ULTRA PLUS TEST strp 1 Each two [...] once daily. VITAMIN D 50,000 unit capsule Take 1 capsule by mouth one time a week. CALCIUM CARBONATE (CALCIUM 500 ORAL) Take 1 tablet by mouth once daily. nitrofurantoin monohydrate and macrocrystal (MACROBID) 100 mg capsule Take 1 capsule by mouth two times a day with meals for 7 days. tirzepatide (MOUNJARO) 2.5 mg/0.5 mL pen injector Inject 2.5 mg subcutaneously one time a week. (Patient not taking: Reported on 12/15/2024) losartan (COZAAR) 100 mg tablet Take 0.5 tablets by mouth every afternoon. (Patient not taking: Reported on 12/15/2024) hydroCHLOROthiazide 12.5 mg capsule Take 1 capsule by mouth once daily. (Patient not taking: Reported on 12/15/2024) metoprolol succinate ER (TOPROL XL) 25 mg 24 hr tablet take 1 tablet by mouth once daily (Patient not taking: Reported on 12/15/2024) exemestane (AROMASIN) 25 mg tablet Take 1 tablet by mouth once daily. (Patient not taking: Reported on 12/15/2024) HISTORIES PAST MEDICAL HISTORY PAST MEDICAL HISTORY Diagnosis Date Anemia in stage 3b chronic kidney disease (HCC) 12/03/2024 Breast CA (HCC) 09/2017 Breast cyst, left 2007 Carcinoma of left breast metastatic to skin (HCC) 08/01/2022 Dehydration 10/30/2022 Functional diarrhea 09/20/2022 HTN (hypertension) Iron malabsorption (HCC) 12/03/2024 Malignant neoplasm of left breast in female, estrogen receptor positive (HCC) 08/01/2022 Primary biliary cirrhosis (HCC) followed by Dr. Husam Hart in [place] PAST SURGICAL HISTORY PAST SURGICAL HISTORY Procedure Laterality Date ARTHRP ACETBLR/PROX FEM PROSTC AGRFT/ALGRFT Right 03/20/2019 Hip replacement, total ARTHRP KNE CONDYLEANDPLATU MEDIALANDLAT COMPARTMENTS Left 02/2016 BIOPSY BREAST OPEN INCISIONAL Left 2007 [facility] benign pathology per patient BREAST RECONSTRUCTION Left 2018 fat graft/implant exchange DELIVERY ONLY 1996,1993 C-secti (more content not included)... [facility] OPERATIVE NOon 01-19-2025 OPERATIVE NO HNO ID: [id number] Author: GARTH REZA MD Service: Urology Author Type: Physician Type: Operative Report Filed: 01/19/2025 15:43 Note Text: OPERATIVE/PROCEDURE REPORT LOG ID: [id number] SURGERY/PROCEDURE DATE: 01/19/2025 INCISION/PROCEDURE START TIME: 3:12 PM INCISION CLOSE/PROCEDURE END TIME: SURGEON(S)/PROCEDURALIS T(S) AND JAVA DEVELOPER(S): Surgeons and Role: * Garth Reza MD - Primary No Additional Staff SURGERY/PROCEDURE(S): 1. Right ESWL 2500 shocks 2. Cystoscopy right stent placement 6 x 24 regular ANESTHESIA: General SURGERY/PROCEDURE DETAILS: The patient was taken operatively given anesthetic in supine position with SCDs on. The patient then was placed in dorsolithotomy prepped and draped. The patient under fluoroscopy could not have the stone identified easily. The patient then had a Glidewire placed up the right ureteral orifice and over this the 6 x 24 stent was deployed. The patient then alongside the stent had a wire and open-ended catheter placed and retrograde revealed a large bifid pelvis with a stone in the lower limb. This was quite a large stone. The bladder was drained. The patient then under biplanar fluoroscopic guidance and periodic injection of contrast had a total of 2500 shocks with morphologic change to the stone. It will be difficult to follow the clearance of stone fragments with the plan already in 3 to 4 weeks to plan ureteroscopy laser manipulations stone basketing to assure clearance of this large stone. PRE-OP/PRE-PROCEDURE DIAGNOSIS: Right renal pelvis stone 1.5 cm POST-OP/POST-PROCEDURE DIAGNOSIS: Same as Preop, uric acid stone ESTIMATED BLOOD LOSS: 0 ml SPECIMENS: None IMPLANTABLE DEVICES: NONE DRAINS: None COMPLICATIONS: None PARTICIPATION IN SURGERY/PROCEDURE: I/primary surgeon/proceduralist performed the procedure with assistance. SIGNATURE: Garth Reza MD PATIENT NAME: Pat Sorto DATE: January 19, 2025 TIME: 3:[address] [facility] XR ABDOMEN 1V SUPINEon 01-19 XR ABDOMEN 1V SUPINE * * *Final Report* * * DATE OF EXAM: Jan 19 2025 12:56PM [id number] [id number] - XR ABDOMEN 1V SUPINE / PROCEDURE REASON: Kidney stone suspected * * * * Physician Interpretation * * * * XR ABDOMEN 1V SUPINE Ordering Physician: GARTH ASENCIO Clinical Statement: Kidney stone Comparison: PET/CT 10/26/2024 FINDINGS: There are multiple calcifications overlying the superior pole of the right kidney which are compatible with cholelithiasis is demonstrated on prior PET/CT. There is suspected calcification in the right renal pelvis. No calcifications seen in the left renal shadow or along expected course of the ureters. Bowel gas pattern is unremarkable. Patient is status post right hip arthroplasty. Degenerative changes are noted in the left hip. IMPRESSION: 1. Suspected calcification right renal pelvis, similar to prior PET/CT. 2. Cholelithiasis. Tape Rules Printing Machine Operator: MARTÍNEZ Transcribe Date/Time: Jan 19 2025 1:36P Dictated by : GELY MACHADO MD This examination was interpreted and the report reviewed and electronically signed by: GELY MACHADO MD on Jan 19 2025 1:39PM EST [id number] [facility] CNTHERAPYon 01-18-2025 CNTHERAPY OT/PT/Speech Visit (PNORCA) PAT SORTO ([id number]) 1960 F [place] Date Time Provider Department 01/18/25 9:00 AM NOE JACKSON [facility] Date Time Provider Department Center 01/18/2025 9:00 AM [id number], [facility] N Reason for Visit: Physical Therapy [503] Primary Visit Diagnosis:Lymphedema of left arm [I89.0] Allergies As of Date: 01/18/2025 Noted Allergy Reaction AMOXICILLIN 11/15/2022 2 - Rash Comments: rash arms trunk neck face, itching Chills Tolerates Ancef Date Reviewed: 01/14/2025 Reviewed by: Jose Rodriguez, RN - Fully Assessed Prescriptions as of 01/18/2025 - exemestane (AROMASIN) 25 mg tablet Take 1 tablet by mouth once daily. - insulin glargine (LANTUS SOLOSTAR U-100 INSULIN) 100 unit/mL (3 mL) Inject 28 Units subcutaneously every morning. - atorvastatin (LIPITOR) 40 mg tablet Take 1 tablet by mouth once daily. - potassium chloride ER (KLOR-CON) 20 mEq tablet TAKE 1 TABLET BY MOUTH TWICE A DAY - lidocaine-prilocaine (EMLA) 2.5-2.5 % cream Apply to affected area as needed. - losartan (COZAAR) 100 mg tablet Take 0.5 tablets by mouth every afternoon. - DROPLET PEN NEEDLE 31 gauge x 3/16 1 each two times a day. - amLODIPine (NORVASC) 5 mg tablet Take 5 mg by mouth once daily. - traZODone (DESYREL) 50 mg tablet Take 1 tablet by mouth daily at bedtime. - metoprolol succinate ER (TOPROL XL) 25 mg 24 hr tablet take 1 tablet by mouth once daily - ursodiol (LEENA) 250 mg tablet Take 250 mg by mouth. 3 tabs in the AM and 2 tabs in the PM - everolimus, antineoplastic, (AFINITOR) 10 mg tablet TAKE 1 TABLET ONCE DAILY - Sodium Fluoride, Dental Rinse, 0.2 % SWISH 10 ML BY MOUTH THEN SPIT ONCE WEEKLY - diphenhydrAMINE-Acetami nophen (TYLENOL PM EXTRA STRENGTH) 25-500 mg tab Take 1 tablet by mouth at bedtime as needed. - Whisk (formerly Zypsee) ULTRA PLUS TEST strp 1 Each two [...] Take 81 mg by mouth once daily. Last dose 01/06/25 just takes as a precaution FH CAD - pantoprazole DR (PROTONIX) 40 mg tablet Take 40 mg by mouth daily before breakfast. - ascorbic acid, vitamin C, (VITAMIN C) 500 mg tablet Take 500 mg by mouth once daily. Last dos 01/06/25 - alpha tocopheryl acetate (VITAMIN E) 400 unit capsule Take 400 Units by mouth once daily. Last dose 01/06/25 - cyanocobalamin (VITAMIN B-12) 1,000 mcg tab Take 1,000 mcg by mouth once daily. Last dose 01/06/25 - VITAMIN D 50,000 unit capsule Take 1 capsule by mouth one time a week. - CALCIUM CARBONATE (CALCIUM 500 ORAL) Take 1 tablet by mouth once daily. Last dose 01/06/25 [facility] CNTHERAPYon 01-14-2025 CNTHERAPY OT/PT/Speech Visit ([facility]CA) EDVINPAT WHELAN ([id number]) 1960 F [place] Date Time Provider Department 01/14/25 9:00 AM NOE JACKSON Date Time Provider Department Center 01/14/2025 9:00 AM [id number], MIRANDA [facility] Reason for Visit: Physical Therapy [503] Primary Visit Diagnosis:Lymphedema of left arm [I89.0] Allergies As of Date: 01/14/2025 Noted Allergy Reaction AMOXICILLIN 11/15/2022 2 - Rash Comments: rash arms trunk neck face, itching Chills Tolerates Ancef Date Reviewed: 01/08/2025 Reviewed by: Janee Tang Ma, DAVID - Fully Assessed Prescriptions as of 01/14/2025 - exemestane (AROMASIN) 25 mg tablet Take 1 tablet by mouth once daily. - nitrofurantoin monohydrate and macrocrystal (MACROBID) 100 mg capsule Take 1 capsule by mouth two times a day with meals for 7 days. - insulin glargine (LANTUS SOLOSTAR U-100 INSULIN) 100 unit/mL (3 mL) Inject 28 Units subcutaneously every morning. - atorvastatin (LIPITOR) 40 mg tablet Take 1 tablet by mouth once daily. - potassium chloride ER (KLOR-CON) 20 mEq tablet TAKE 1 TABLET BY MOUTH TWICE A DAY - lidocaine-prilocaine (EMLA) 2.5-2.5 % cream Apply to affected area as needed. - losartan (COZAAR) 100 mg tablet Take 0.5 tablets by mouth every afternoon. - DROPLET PEN NEEDLE 31 gauge x 3/16 1 each two times a day. - amLODIPine (NORVASC) 5 mg tablet Take 5 mg by mouth once daily. - traZODone (DESYREL) 50 mg tablet Take 1 tablet by mouth daily at bedtime. - metoprolol succinate ER (TOPROL XL) 25 mg 24 hr tablet take 1 tablet by mouth once daily - ursodiol (LEENA) 250 mg tablet Take 250 mg by mouth two times a day. - everolimus, antineoplastic, (AFINITOR) 10 mg tablet TAKE 1 TABLET ONCE DAILY - Sodium Fluoride, Dental Rinse, 0.2 % SWISH 10 ML BY MOUTH THEN SPIT ONCE WEEKLY - diphenhydrAMINE-Acetami nophen (TYLENOL PM EXTRA STRENGTH) 25-500 mg tab Take 1 tablet by mouth at bedtime as needed. - Whisk (formerly Zypsee) ULTRA PLUS TEST strp 1 Each two [...] Take 1 tablet by mouth once daily. [facility] CNTHERAPYon 01-11-2025 CNTHERAPY OT/PT/Speech Visit (PNORCA) PAT SORTO ([id number]) 1960 F [place] Date Time Provider Department 01/11/25 8:15 AM NOE JACKSONAL Date Time Provider Department Center 01/11/2025 8:15 AM [id number], [facility] Reason for Visit: Physical Therapy [503] Primary Visit Diagnosis:Lymphedema of left arm [I89.0] Allergies As of Date: 01/11/2025 Noted Allergy Reaction AMOXICILLIN 11/15/2022 2 - Rash Comments: rash arms trunk neck face, itching Chills Tolerates Ancef Date Reviewed: 01/08/2025 Reviewed by: Janee Tang Ma, MA - Fully Assessed Prescriptions as of 01/11/2025 - exemestane (AROMASIN) 25 mg tablet Take 1 tablet by mouth once daily. - nitrofurantoin monohydrate and macrocrystal (MACROBID) 100 mg capsule Take 1 capsule by mouth two times a day with meals for 7 days. - insulin glargine (LANTUS SOLOSTAR U-100 INSULIN) 100 unit/mL (3 mL) Inject 28 Units subcutaneously every morning. - atorvastatin (LIPITOR) 40 mg tablet Take 1 tablet by mouth once daily. - potassium chloride ER (KLOR-CON) 20 mEq tablet TAKE 1 TABLET BY MOUTH TWICE A DAY - lidocaine-prilocaine (EMLA) 2.5-2.5 % cream Apply to affected area as needed. - losartan (COZAAR) 100 mg tablet Take 0.5 tablets by mouth every afternoon. - DROPLET PEN NEEDLE 31 gauge x 3/16 1 each two times a day. - amLODIPine (NORVASC) 5 mg tablet Take 5 mg by mouth once daily. - traZODone (DESYREL) 50 mg tablet Take 1 tablet by mouth daily at bedtime. - metoprolol succinate ER (TOPROL XL) 25 mg 24 hr tablet take 1 tablet by mouth once daily - ursodiol (LEENA) 250 mg tablet Take 250 mg by mouth two times a day. - everolimus, antineoplastic, (AFINITOR) 10 mg tablet TAKE 1 TABLET ONCE DAILY - Sodium Fluoride, Dental Rinse, 0.2 % SWISH 10 ML BY MOUTH THEN SPIT ONCE WEEKLY - diphenhydrAMINE-Acetami nophen (TYLENOL PM EXTRA STRENGTH) 25-500 mg tab Take 1 tablet by mouth at bedtime as needed. - Solar Pool TechnologiesTOUCH ULTRA PLUS TEST strp 1 Each two [...] Take 1 tablet by mouth once daily. [facility] CNTHERAPYon 01-08-2025 CNTHERAPY OT/PT/Speech Visit (PNORCA) PAT SORTO ([id number]) 1960 F [place] Date Time Provider Department 01/08/25 9:00 AM NOE JACKSON [facility] Date Time Provider Department Center 01/08/2025 9:00 AM [id number], MIRANDA [facility] N Reason for Visit: Physical Therapy [503] Primary Visit Diagnosis:Lymphedema of left arm [I89.0] Allergies As of Date: 01/08/2025 Noted Allergy Reaction AMOXICILLIN 11/15/2022 2 - Rash Comments: rash arms trunk neck face, itching Chills Tolerates Ancef Date Reviewed: 12/29/2024 Reviewed by: Sussy Vargas MA - Fully Assessed Prescriptions as of 01/08/2025 - nitrofurantoin monohydrate and macrocrystal (MACROBID) 100 mg capsule Take 1 capsule by mouth two times a day with meals for 7 days. - insulin glargine (LANTUS SOLOSTAR U-100 INSULIN) 100 unit/mL (3 mL) Inject 28 Units subcutaneously every morning. - atorvastatin (LIPITOR) 40 mg tablet Take 1 tablet by mouth once daily. - potassium chloride ER (KLOR-CON) 20 mEq tablet TAKE 1 TABLET BY MOUTH TWICE A DAY - lidocaine-prilocaine (EMLA) 2.5-2.5 % cream Apply to affected area as needed. - losartan (COZAAR) 100 mg tablet Take 0.5 tablets by mouth every afternoon. - hydroCHLOROthiazide 12.5 mg capsule Take 1 capsule by mouth once daily. - DROPLET PEN NEEDLE 31 gauge x [...] by mouth at bedtime as needed. - Solar Pool TechnologiesTOUCH ULTRA PLUS TEST strp 1 Each two [...] Take 1 tablet by mouth once daily. [facility] Mihir 01-07-2025 CNPN Telephone (URMASS) PAT SORTO ([id number]) 1960 F [place] Date Time Provider Department 01/07/25 GARTH REZA During your visit today, we recorded the following information about you: Nuzhat Bhat MA 01/07/2025 2:53 PM Signed Patient called having ESWL on the . She had UC done at PCP and they gave her an ATB. It is still under preliminary. She was wanting to know if Dr Reza still wanted her to have Culture done prior to the surgery? Called and had to leave message. What ATB was given? And for her to call for the final results tomorrow? Trina Reed MA 01/07/2025 3:14 PM Signed Spoke to pt and she said her PCP started her on Macrobid 100mg 1 tab bid for 7 days. She has not picked up the rx yet but she will. Would you like her to do another CANDS after she completes the atb? DAVID Sewell Jodi, MA 01/11/2025 12:21 PM Signed Spoke to pt and she voiced understanding. Trina Reed MA Allergies As of Date: 01/07/2025 Noted Allergy Reaction AMOXICILLIN 11/15/2022 2 - Rash Comments: rash arms trunk neck face, itching Chills Tolerates Ancef Date Reviewed: 12/29/2024 Reviewed by: Sussy Vargas MA - Fully Assessed Primary Visit Diagnosis:Recurrent UTI [N39.0] Order(s):BACTERIAL CULTURE, URINE [SQURCUL] Order #: [id number] STANDING Prescriptions as of 01/11/2025 - exemestane (AROMASIN) 25 mg tablet Take 1 tablet by mouth once daily. - nitrofurantoin monohydrate and macrocrystal (MACROBID) 100 mg capsule Take 1 capsule by mouth two times a day with meals for 7 days. - insulin glargine (LANTUS SOLOSTAR U-100 INSULIN) 100 unit/mL (3 mL) Inject 28 Units subcutaneously every morning. - atorvastatin (LIPITOR) 40 mg tablet Take 1 tablet by mouth once daily. - potassium chloride ER (KLOR-CON) 20 mEq tablet TAKE 1 TABLET BY MOUTH TWICE A DAY - lidocaine-prilocaine (EMLA) 2.5-2.5 % cream Apply to affected area as needed. - losartan (COZAAR) 100 mg tablet Take 0.5 tablets by mouth every afternoon. - DROPLET PEN NEEDLE 31 gauge x 3/16 1 each two times a day. - amLODIPine (NORVASC) 5 mg tablet Take 5 mg by mouth once daily. - traZODone (DESYREL) 50 mg tablet Take 1 tablet by mouth daily at bedtime. - metoprolol succinate ER (TOPROL XL) 25 mg 24 hr tablet take 1 tablet by mouth once daily - ursodiol (LEENA) 250 mg tablet Take 250 mg by mouth two times a day. - everolimus, antineoplastic, (AFINITOR) 10 mg tablet TAKE 1 TABLET ONCE DAILY - Sodium Fluoride, Dental Rinse, 0.2 % SWISH 10 ML BY MOUTH THEN SPIT ONCE WEEKLY - diphenhydrAMINE-Acetami nophen (TYLENOL PM EXTRA STRENGTH) 25-500 mg tab Take 1 tablet by mouth at bedtime as needed. - Solar Pool TechnologiesTOUCH ULTRA PLUS TEST strp 1 Each two [...] Take 1 tablet by mouth once daily. 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, T*08/19/2017 Primary biliary cirrhosis (HCC) [K74.3] 09/24/2017 Axillary pain, left [M79.622] 11/21/2017 Musculoskeletal chest pain [R07.89] 11/21/2017 Examination of participant in clinical trial [Z*01/27/2018 Hypertension [I10] 04/22/2018 History of radiation therapy [Z92.3] 08/13/2018 Total knee replacement status, left [Z96.652] 02/23/2019 Primary localized osteoarthritis of right hip [*03/20/2019 Status post right hip replacement [Z96.641] 06/02/2019 Lumbar degenerative disc disease [M51.369] 06/02/2019 Carcinoma of left breast metastatic to skin (HC*08/01/2022 Class 1 obesity due to excess calories with ser*08/09/2022 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 [facility] CNTHERAPYon 01-06-2025 CNTHERAPY OT/PT/Speech Visit (PNORCA) PAT SORTO ([id number]) 1960 F UPA Date Time Provider Department 01/06/25 9:45 AM NOE JACKSON Date Time Provider Department Center 01/06/2025 9:45 AM [id number], [facility] N Reason for Visit: Physical Therapy [503] Primary Visit Diagnosis:Lymphedema of left arm [I89.0] Allergies As of Date: 01/06/2025 Noted Allergy Reaction AMOXICILLIN 11/15/2022 2 - Rash Comments: rash arms trunk neck face, itching Chills Tolerates Ancef Date Reviewed: 12/29/2024 Reviewed by: Sussy Vargas MA - Fully Assessed Prescriptions as of 01/06/2025 - insulin glargine (LANTUS SOLOSTAR U-100 INSULIN) 100 unit/mL (3 mL) Inject 28 Units subcutaneously every morning. - atorvastatin (LIPITOR) 40 mg tablet Take 1 tablet by mouth once daily. - potassium chloride ER (KLOR-CON) 20 mEq tablet TAKE 1 TABLET BY MOUTH TWICE A DAY - lidocaine-prilocaine (EMLA) 2.5-2.5 % cream Apply to affected area as needed. - losartan (COZAAR) 100 mg tablet Take 0.5 tablets by mouth every afternoon. - hydroCHLOROthiazide 12.5 mg capsule Take 1 capsule by mouth once daily. - DROPLET PEN NEEDLE 31 gauge x [...] Take 1 tablet by mouth once daily. [facility] CNTHERAPYon 12-28-2024 CNTHERAPY OT/PT/Speech Visit (PNORCA) PAT SORTO ([id number]) 1960 F U[place] Date Time Provider Department 12/28/24 8:15 AM NOE JACKSON [facility] Date Time Provider Department Center 12/28/2024 8:15 AM [id number], MIRANDA [facility] N Reason for Visit: Physical Therapy [503] Primary Visit Diagnosis:Lymphedema of left arm [I89.0] Allergies As of Date: 12/28/2024 Noted Allergy Reaction AMOXICILLIN 11/15/2022 2 - Rash Comments: rash arms trunk neck face, itching Chills Tolerates Ancef Date Reviewed: 12/25/2024 Reviewed by: Tatianna Crook [facility] - Fully Assessed Prescriptions as of 12/28/2024 - insulin glargine (LANTUS SOLOSTAR U-100 INSULIN) 100 unit/mL (3 mL) Inject 28 Units subcutaneously every morning. - atorvastatin (LIPITOR) 40 mg tablet Take 1 tablet by mouth once daily. - potassium chloride ER (KLOR-CON) 20 mEq tablet TAKE 1 TABLET BY MOUTH TWICE A DAY - lidocaine-prilocaine (EMLA) 2.5-2.5 % cream Apply to affected area as needed. - losartan (COZAAR) 100 mg tablet Take 0.5 tablets by mouth every afternoon. - hydroCHLOROthiazide 12.5 mg capsule Take 1 capsule by mouth once daily. - DROPLET PEN NEEDLE 31 gauge x [...] by mouth at bedtime as needed. - Solar Pool TechnologiesTOUCH ULTRA PLUS TEST strp 1 Each two [...] Take 1 tablet by mouth once daily. [facility] CNTHERAPYon 12-25-2024 CNTHERAPY OT/PT/Speech Visit (PNORCA) PAT SORTO ([id number]) 1960 F [place] Date Time Provider Department 12/25/24 9:45 AM NOE JACKSON [facility] Date Time Provider Department Center 12/25/2024 9:45 AM [id number], MIRANDA [facility] N Reason for Visit: Physical Therapy [503] Primary Visit Diagnosis:Lymphedema of left arm [I89.0] Allergies As of Date: 12/25/2024 Noted Allergy Reaction AMOXICILLIN 11/15/2022 2 - Rash Comments: rash arms trunk neck face, itching Chills Tolerates Ancef Date Reviewed: 12/24/2024 Reviewed by: Karyn Kirk, FE - Fully Assessed Prescriptions as of 12/25/2024 - atorvastatin (LIPITOR) 40 mg tablet Take 1 tablet by mouth once daily. - potassium chloride ER (KLOR-CON) 20 mEq tablet TAKE 1 TABLET BY MOUTH TWICE A DAY - lidocaine-prilocaine (EMLA) 2.5-2.5 % cream Apply to affected area as needed. - tirzepatide (MOUNJARO) 2.5 mg/0.5 mL pen [...] by mouth at bedtime as needed. - mycujooUCH ULTRA PLUS TEST strp 1 Each two [...] Take 1 tablet by mouth once daily. [facility] [id number] 12-23-2024 [id number] HNO ID: [id number] Author: MILAGROS BROWN PT Service: ? Author Type: Physical Therapist Type: [id number] Filed: 12/23/2024 07:54 Note Text: [facility] Physical Therapy Plan of Care Certification Patient Name: Pat Sorto : 1960 [facility] #: [id number] Date: 12/21/2024 To: Micki Butler APRN.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 From Therapist: Milagros Brown PT RE: Patient [...] OF CARE UPDATE: Assessment: Pat Sorto demonstrates improvements in decrease tightness, hardness of tissue in left arm. Skin softer, more mobile but continues with lymphedema. The patient has progressed toward goals. Patient continues to present with impairments in edema management and symptom management that interfere with gripping, pulling, twisting . Current prognosis is Good due to: current objective clinical presentation Fair due to: chronic nature of impairments, multiple co- morbidities . The patient will benefit from continued skilled therapy services to meet the updated goals for this plan of care as noted below. Goals reviewed 12/21/24 Goals for Episode of Care: established 08/27/24 Patient / family knowledgeable re: all pertinent aspects of CDT Ongoing Patient / family independent with donning / doffing compression garment and proper wearing schedule and care of garment Ongoing, new garment does not fit at this time. Patient / family independent with home exercise program Ongoing Patient will decrease circumferential measurements by 1-2 cm in the following areas: left UE and hand for decreased recurrence of infection, improved mobility, improved range of motion and allow appropriate fit in compressive garment . Ongoing Patient Goals: Ease swelling Time Frame for Goals and Treatment : 01/20/25 Patient Goals: Decrease swelling Planned Interventions, Frequency, and Duration: 2x/week (2-3x/week as indicated), 4 weeks Total Number of Visits Planned: 8 Patient to be seen for Therapeutic exercise (77568), Manual therapy (56670), Self-halfway management (07819), Patient/Family/Caregive r Education, Therapeutic activities (22489) (lymphedema program) PLAN FOR NEXT VISIT: continue current program - need to discuss compression garment, possibly one for night use. For further details regarding this patient refer to the Physical Therapy electronically documented visit dated 12/21/2024. Provider Attestation I have reviewed the treatment plan for Pat Sorto, [facility]# [id number] for the period of 12/21/24 -- 02/19/25, established on 12/21/2024. Signature certifies the need for therapy services. Normal [facility] VINCENZO w/ Reflex Mult Confirmon 12-23-2024 ANTI-DNA (DS)AB TNP Normal [facility] Comment on above: Performed By: #### L 500.9400 #### [facility] [address] [place], [place], [address] ANTI-SS-A TNP Normal [facility] Comment on above: Performed By: #### L 500.9400 #### [facility] [address] [place], [place], [address] ANTI-SS-B TNP Normal [facility] Comment on above: Performed By: #### L 500.9400 #### [facility] [address] [place], [place], [address] CNTHERAPYon 12-23-2024 CNTHERAPY OT/PT/Speech Visit (PNORCA) PAT SORTO ([id number]) 1960 F [place] Date Time Provider Department 12/23/24 9:00 AM NOE JACKSON Date Time Provider Department Center 12/23/2024 9:00 AM [id number] [id number] [facility] N Reason for Visit: Physical Therapy [503] Primary Visit Diagnosis:Lymphedema of left arm [I89.0] Allergies As of Date: 12/23/2024 Noted Allergy Reaction AMOXICILLIN 11/15/2022 2 - Rash Comments: rash arms trunk neck face, itching Chills Tolerates Anc Date Reviewed: 12/21/2024 Reviewed by: Gui Reaves RN - Fully Assessed Prescriptions as of 12/23/2024 - atorvastatin (LIPITOR) 40 mg tablet Take 1 tablet by mouth once daily. - nitrofurantoin monohydrate and macrocrystal (MACROBID) 100 mg capsule Take 1 capsule by mouth two times a day for 7 days. FOR 7 DAYS. - potassium chloride ER (KLOR-CON) 20 mEq tablet TAKE 1 TABLET BY MOUTH TWICE A DAY - lidocaine-prilocaine (EMLA) 2.5-2.5 % cream Apply to affected area as needed. - tirzepatide (MOUNJARO) 2.5 mg/0.5 mL pen [...] by mouth at bedtime as needed. - Solar Pool TechnologiesTOUCH ULTRA PLUS TEST strp 1 Each two [...] Take 1 tablet by mouth once daily. [facility] Coronary Angiography CTon Coronary Angiography CT [facility] Imaging Services [address] [place] [address] 12/23/24 1848 MR#: [id number] Acct: [id number] Name: PAT SORTO Rep #: [id number] : 1960 64 From: Andrea Peace MD PCP: Dr. Jacinta Rivas MD Status:REG REF Y Location: CT Calcium Scoring Date of Study:: 12/10/24 Indications Indications: HLD Coronary Calcium Scoring: High-resolution Computed Tomographic imaging of the chest was performed on [12/10/24 ], with particular attention paid to the coronary arteries. Images from the examination were analyzed for the presence and extent of coronary artery calcification , using coronary calcium quantification software. The patient tolerated the procedure well and there were no complications. The results of the coronary calcification analysis are provided below. Findings Coronary Artery Left Main (LM): 0 Left Anterior Descending (LAD): 1.1 Left Circumflex (LCX): 0 Right Coronary Artery (RCA): 0 Total Agatston Score: 1.1 Percentile Rankin% Calcium Scoring Interpretation: Different methods to categorize the overall amount of coronary plaque. Overall amount CAC SIS Visual of coronary plaque P1 Mild -100 <2 1-2 vessels with mild amount of plaque P2 Moderate 101-300 3-4 1-2 vessels with moderate amount, 3 vessels with mild amount of plaque P3 Severe 301-999 5-7 3 vessels with moderate amount, 1 vessel with severe amount of plaque P4 Extensive >1000 >8 2-3 vessels with severe amount of plaque Conclusion: Trivial plaque noted. 12/23/24 1849 Date Andrea Peace MD Cosigner Signature (if applicable): Date CC: Dr. Andrea Peace MD; Dr. Jacinta Rivas MD; RUSSELL Lr Signed Normal [facility] Echocardiogram study reportO rdered By: Andrea Peace on 12-23-2024 Study report [facility] Cardi[facility] Services [address] [place] [address] ONC Echo Complete 12/15/24 1304 MR#: [id number] Acct: [id number] Name: PAT SORTO Rep #:[id number] : 1960 64 From: Andrea North Attending Dr: RUSSELL Lr atus: REG CLI Ordering Dr: Paulo Salazar Date: 12/15/24 Location: [facility] Sex: F C Admitted: Reason For Study Reason For Study: Decreased Strain, Chemotherapy Procedure This was a 2D Doppler, Color Flow transthoracic echocardiogram. Myocardial strain analysis was performed in this exam to aid in the assessment of cardiac function. Exam performed in department. Left Ventricle Normal LV size. The global longitudinal strain = -13.9% (abnormal). Left ventricular systolic function is lower limits of normal. The left ventricular ejection fraction is 50 %. Stage 1 diastolic dysfunction. Right Ventricle Normal RV size. Normal systolic function. Atria Normal left atrium. Normal right atrium. Mitral Valve There is Mild focal posterior mitral annular calcification. Mild (1+) mitral valve insufficiency. Tricuspid Valve Normal tricuspid valve. Mild to moderate (1-2+) tricuspid valve insufficiency. Pulmonary artery systolic pressure is 29 mmHg. Aortic Valve Trisinus/trileaflet aortic valve. Pulmonic Valve Normal pulmonic valve. Trivial pulmonic valve insufficiency. Great Vessels Normal sized aortic root. Pericardium/Pleural No pericardial effusion. MMode/2D Measurements & Calculations LVIDd: 4.9 cm IVSd: 0.88 cm Ao root diam: 3.4 cm LVIDs: 3.4 cm LVPWd: 0.89 cm RVDd: 3.6 cm FS: 30.0 % LAV(MOD-bp): 52.7 ml LVAd ap4: 29.7 cm2 SV(MOD-sp4): 40.6 ml LAV(MOD-bp) Indexed: 27.5 ml/m2 LVLd ap4: 7.6 cm SI(MOD-sp4): 21.2 ml/m2 LAV(MOD-sp2): 54.0 ml EDV(MOD-sp4): 94.0 ml LAV(MOD-sp4): 46.2 ml EDV(sp4-el): 97.9 ml LVAs ap4: 20.5 cm2 LVLs ap4: 6.7 cm ESV(MOD-sp4): 53.4 ml ESV(sp4-el): 53.1 ml EF(MOD-sp4): 43.2 % EF(sp4-el): 45.7 % SV(sp4-el): 44.7 ml LA A4 area: 18.2 cm2 LA dimension(2D): 3.8 cm RA A4 area: 15.2 cm2 Time Measurements MV dec time: 0.21 sec Doppler Measurements & Calculations MV E max ericka: 56.3 cm/sec Lat Peak E' Ericka: 8.5 cm/sec Med Peak E' Ericka: 3.9 cm/sec MV A max ericka: 94.7 cm/sec E/E' lat: 6.6 E/E' med: 14.3 MV E/A: 0.59 MV V2 max: 112.6 cm/sec MV P1/2t max ericka: 61.1 cm/sec Ao V2 max: 141.3 cm/sec MV max P.1 mmHg MV P1/2t: 70.0 msec Ao max P.0 mmHg MV V2 mean: 54.5 cm/sec Ao V2 mean: 99.7 cm/sec MV mean P.4 mmHg MV dec slope: 255.8 cm/sec2 Ao mean P.5 mmHg MV V2 VTI: 19.0 cm MVA(P1/2t): 3.1 cm2 Ao V2 VTI: 28.9 cm AV (velocity ratio): 0.79 LV V1 max: 113.3 cm/sec PA V2 max: 101.4 cm/sec TR max ericka: 256.1 cm/sec LV V1 max P.1 mmHg TR max P.4 mmHg LV V1 mean P.1 mmHg LV V1 mean: 83.8 cm/sec LV V1 VTI: 22.8 cm ECHO/ONC Echo Complete Interpretation Summary The left ventricular ejection fraction is 50 %. Stage 1 diastolic dysfunction. Mild (1+) mitral valve insufficiency. Mild to moderate (1-2+) tricuspid valve insufficiency. The global longitudinal strain = -13.9% (abnormal). Compared to the previous echo from August 2023 that has been some reduction in the left ventricular ejection fraction. Ordering Physician: Paulo Salazar Referring Physician: Paulo Salazar Performed By: Jamal Siegle [facility] 12/23/24620 Date _ Andrea Peace MD CC: Dr. 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 Work Phone: CBC W Auto Differential pane l (Bld)on 12-21-2024 Basophils (Bld) [#/Vol] 0.03 10*3/uL NINF [facility] Basophils/100 WBC (Bld) 0.5 % C [facility] Differential cell count method Nom (Bld) Auto [facility] Eosinophils (Bld) [#/Vol] 0.16 10*3/uL [facility] Eosinophils/100 WBC (Bld) 2.6 % [facility] Erythrocyte distribution width (RBC) [Ratio] 15.1 % High 11.5 - 15.0 % [facility] Hematocrit (Bld) [Volume fraction] 29.8 % Low 36.0 - 46.0 % [facility] Hemoglobin (Bld) [Mass/Vol] 10.0 g/dL Low 11.5 - 15.5 g/dL [facility] Immature granulocytes (Bld) [#/Vol] 0.03 10*3/uL [facility] Immature granulocytes/100 WBC (Bld) 0.5 % [facility] Interpretation and review of laboratory results Abnormal [facility] Lymphocytes (Bld) [#/Vol] 1.37 10*3/uL [facility] Lymphocytes/100 WBC (Bld) 22.1 % [facility] MCH (RBC) [Entitic mass] 28.7 pg 26.0 - 34.0 pg [facility] MCHC (RBC) [Mass/Vol] 33.6 g/dL 30.5 - 36.0 g/dL [facility] MCV (RBC) [Entitic vol] 85.6 fL 80.0 - 100.0 fL [facility] Monocytes (Bld) [#/Vol] 0.47 10*3/uL [facility] Monocytes/100 WBC (Bld) 7.6 % C [facility] Neutrophils (Bld) [#/Vol] 4.15 10*3/uL [facility] Neutrophils/100 WBC (Bld) 66.7 % [facility] Nucleated RBC (Bld) [#/Vol] [facility] Nucleated RBC/100 WBC (Bld) [Ratio] 0.0 % /100 WBC [facility] Platelet mean volume (Bld) [Entitic vol] 9.7 fL 9.0 - 12.7 fL [facility] Platelets (Bld) [#/Vol] 154 10*3/uL [facility] RBC (Bld) [#/Vol] 3.48 10*6/uL Low 3.90 - 5.20 m/uL [facility] WBC (Bld) [#/Vol] 6.21 10*3/uL [facility] CNTHERAPYon 12-21-2024 CNTHERAPY OT/PT/Speech Visit (PNORCA) PAT SORTO ([id number]) 1960 F [place] Date Time Provider Department 12/21/24 4:30 PM MILAGROS BROWN Date Time Provider Department Center 12/21/2024 4:30 PM [id number] Reason for Visit: PT Progress Note [1596] Primary Visit Diagnosis:Lymphedema of left arm [I89.0] Allergies As of Date: 12/21/2024 Noted Allergy Reaction AMOXICILLIN 11/15/2022 2 - Rash Comments: rash arms trunk neck face, itching Chills Tolerates Ancef Date Reviewed: 12/21/2024 Reviewed by: Gui Reaves, FE - Fully Assessed Prescriptions as of 12/23/2024 - atorvastatin (LIPITOR) 40 mg tablet Take 1 tablet by mouth once daily. - nitrofurantoin monohydrate and macrocrystal (MACROBID) 100 mg capsule Take 1 capsule by mouth two times a day for 7 days. FOR 7 DAYS. - potassium chloride ER (KLOR-CON) 20 mEq tablet TAKE 1 TABLET BY MOUTH TWICE A DAY - lidocaine-prilocaine (EMLA) 2.5-2.5 % cream Apply to affected area as needed. - tirzepatide (MOUNJARO) 2.5 mg/0.5 mL pen [...] by mouth at bedtime as needed. - Whisk (formerly Zypsee) ULTRA PLUS TEST strp 1 Each two [...] 1 tablet by mouth once daily. Normal [facility] Comprehensive metabolic 2000 panelOrdered By: Marga Calhoun on 12-21-2024 Albumin [Mass/Vol] 3.6 g/dL Low 3.9 - 4.9 g/dL [facility] ALP [Catalytic activity/Vol] 73 U/L 34 - 123 U/L [facility] ALT [Catalytic activity/Vol] 11 U/L 7 - 38 U/L [facility] Anion gap [Moles/Vol] 13 mmol/L 8 - 15 mmol/L [facility] AST [Catalytic activity/Vol] 21 U/L 13 - 35 U/L [facility] Bilirubin [Mass/Vol] 0.3 mg/dL 0.2 - 1 .3 mg/dL [facility] Calcium [Mass/Vol] 9.1 mg/dL 8.5 - 10. 2 mg/dL [facility] Chloride [Moles/Vol] 106 mmol/L 98 - 10 7 mmol/L [facility] CO2 [Moles/Vol] 22 mmol/L 22 - 30 mmol/L [facility] Creatinine [Mass/Vol] 1.06 mg/dL High 0.58 - 0.96 mg/dL [facility] GFR/1.73 sq M.predicted among non-blacks MDRD (S/P/Bld) [Vol rate/Area] 58 mL/min/{1.73_m2} Low - PINF [facility] Comment on above: Estimated Glomerular Filtration Rate (eGFR) is calculated using the 2020 CKD-EPI creatinine equation. This equation utilizes serum creatinine, sex, and age as parameters. The creatinine assay has traceable calibration to isotope dilution-mass spectrometry. Refer to KDIGO guidelines for clinical interpretation. In patients with unstable renal function, e.g. those with acute kidney injury, the eGFR may not accurately reflect actual GFR. Glucose [Mass/Vol] 175 mg/dL High 74 - 99 mg/dL [facility] Comment on above: The [place] [employer] (ADA) provides guidance for cutoff values for fasting glucose and random glucose. The ADA defines fasting as no caloric intake for at least 8 hours. Fasting plasma glucose results between 100 to 125 mg/dL indicate increased risk for diabetes (prediabetes). Fasting plasma glucose results greater than or equal to 126 mg/dL meet the criteria for diagnosis of diabetes. In the absence of unequivocal hyperglycemia, results should be confirmed by repeat testing. In a patient with classic symptoms of hyperglycemia or hyperglycemic crisis, random plasma glucose results greater than or equal to 200 mg/dL meet the criteria for diagnosis of diabetes. Reference: Standards of Medical Care in Diabetes 2016, [place] [employer]. Diabetes Care. 2016.39(Suppl 1). Interpretation and review of laboratory results Abnormal [facility] Potassium [Moles/Vol] 3.9 mmol/L 3.7 - 5.1 mmol/L [facility] Protein [Mass/Vol] 6.9 g/dL 6.3 - 8.0 g/dL [facility] Sodium [Moles/Vol] 141 mmol/L 136 - 144 mmol/L [facility] Urea nitrogen [Mass/Vol] 26 mg/dL High 7 - 21 mg/dL [facility] CNPNon 12-17-2024 CNPN Telephone (URCANT) PAT SORTO ([id number]) 1960 F [place] Date Time Provider Department 12/17/24 GARTH REZA URCANT During your visit today, we recorded the following information about you: Sesar Gunn 12/17/2024 8:53 AM Signed Garth Reza MD Smith-Mizik, Marryssa Anne Stop asa 1 week Start macrobid 3 d prior and get urine cx 10 days prior Plan R stent eswl Sesar Gunn 12/17/2024 11:35 AM Signed Called pt and had to leave message. Sesar Zamarripa 12/21/2024 2:56 PM Signed Pt called and is on 01/12. Aware of instructions, aware of urine culture and Macrobid. Sesar Zamarripa 12/22/2024 1:03 PM Signed Pt called and is on 01/19, she states 01/12 is not a good day for her. Sesar Zamarripa 12/22/2024 1:28 PM Signed Pt is on for an ESWL + stent under general anesthesia with on 01/19/2025 CASE# [id number] Pt is aware of prep and arrival instructions given verbally 12/21. Pt states they are on baby Asprin, OTC but aware to stop. [employer] message sent 12/22. Post Op 02/03/2025 at 10:15 in the [place] office ESWL bed REF# [id number] per portal 12/22 Sesar Zamarripa 01/15/2025 12:53 PM Signed Called to confirm surgery with pt and had to leave message. Sesar Gunn Palma 01/18/2025 2:51 PM Signed Called to confirm surgery and pt confirmed date and procedure. 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 Reminded no NSAIDS and NPO. Confirmed no nsaids in last seven days. Sesar Zamarripae 01/20/2025 10:09 AM Signed Called pt about her post op and she voiced understanding. Sesar Waldrop Maricarmentomas Allergies As of Date: 12/17/2024 Noted Allergy Reaction AMOXICILLIN 11/15/2022 2 - Rash Comments: rash arms trunk neck face, itching Chills Tolerates Ancef Date Reviewed: 12/17/2024 Reviewed by: Belle Couch OCCA - Fully Assessed Reason for Visit: Surgery [Other] Prescriptions as of 01/20/2025 - nitrofurantoin monohydrate and macrocrystal (MACROBID) 100 mg capsule Take 1 capsule by mouth two times a day for 7 days. - exemestane (AROMASIN) 25 mg tablet Take 1 tablet by mouth once daily. - insulin glargine (LANTUS SOLOSTAR U-100 INSULIN) 100 unit/mL (3 mL) Inject 28 Units subcutaneously every morning. - atorvastatin (LIPITOR) 40 mg tablet Take 1 tablet by mouth once daily. - potassium chloride ER (KLOR-CON) 20 mEq tablet TAKE 1 TABLET BY MOUTH TWICE A DAY - lidocaine-prilocaine (EMLA) 2.5-2.5 % cream Apply to affected area as needed. - losartan (COZAAR) 100 mg tablet Take 0.5 tablets by mouth every afternoon. - DROPLET PEN NEEDLE 31 gauge x 3/16 1 each two times a day. - amLODIPine (NORVASC) 5 mg tablet Take 5 mg by mouth once daily. - traZODone (DESYREL) 50 mg tablet Take 1 tablet by mouth daily at bedtime. - ursodiol (LEENA) 250 mg tablet Take 250 mg by mouth. 3 tabs in the AM and 2 tabs in the PM - everolimus, antineoplastic, (AFINITOR) 10 mg tablet TAKE 1 TABLET ONCE DAILY - Sodium Fluoride, Dental Rinse, 0.2 % SWISH 10 ML BY MOUTH THEN SPIT ONCE WEEKLY - diphenhydrAMINE-Acetami nophen (TYLENOL PM EXTRA STRENGTH) 25-500 mg tab Take 1 tablet by mouth at bedtime as needed. - Whisk (formerly Zypsee) ULTRA PLUS TEST strp 1 Each two times a day. E11.65; No insulin - Lancets Use with blood glucose test two times a day. Insulin Dep? No - blood sugar diagnostic (BLOOD GLUCOSE TEST) test strip Use with blood glucose test two times a day. Insulin Dep? No - pantoprazole DR (PROTONIX) 40 mg tablet Take 40 mg by mouth daily before breakfast. - ascorbic acid, vitamin C, (VITAMIN C) 500 mg tablet Take 500 mg by mouth once daily. Last dos 01/06/25 - alpha tocopheryl acetate (VITAMIN E) 400 unit capsule Take 400 Units by mouth once daily. Last dose 01/06/25 - cyanocobalamin (VITAMIN B-12) 1,000 mcg tab Take 1,000 mcg by mouth once daily. Last dose 01/06/25 - VITAMIN D 50,000 unit capsule Take 1 capsule by mouth one time a week. - CALCIUM CARBONATE (CALCIUM 500 ORAL) Take 1 tablet by mouth once daily. 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 [facility] BLADDER SCANon 12-16-[address] [facility] Bacteria Ur Culton Bacteria identified Cx Nom (U) ORGANISM ID: 1 50,000-<100,000 CFU/ml Mixed microbiota No further workup. Mixed microbiota can be due to???urine???contaminat ion with skin bacteria at time of collection or presence of a long-term urinary catheter. If a new culture is needed, please consider re-education of the patient on proper midstream collection technique or straight catheterization for???urine???collectio n. Normal [facility] Comment on above: Performed By: #### 6 30-4 ####[facility]ORATORYCLIA [id number] [employer] [address] OF [facility] CNOVon 12-16-2024 CNOV Office Visit (URCANT ) PAT SORTO ([id number]) 1960 F UPA Date Time Provider Department 12/16/24 4:00 PM GARTH REZA URCANT During your visit today, we recorded the following information about you: Weight Height 78.5 kg 1.676 m Garth Reza MD 12/16/2024 5:05 PM Signed [facility] NEW PATIENT ENCOUNTER Consultation requested by Jacinta Dorsey for an opinion regarding Nay. My final recommendations will be communicated back to the requesting physician by way of shared Medical record or letter to requesting physician via US mail. HISTORY OF PRESENT ILLNESS: Patient presents with: Consult recurrent uti: New patient here for recurrent UTI PVR 0ml she is on estrogen, exemestane, and everolimus. For breast cancer. She has been getting more UTI's in the past 2 years Pat Sorto is a 64 year old female who never had uti prior last 2-3 yrs, no hematuria, No prior stones or colic had large R stones since 2022, Plan R eswl, stent, the later use/laser Review of Systems LAB No results found for: PSA, PSASC Creatinine Date Value Ref Range Status 12/15/2024 1.08 (H) 0.58 - 0.96 mg/dL Final GLUCOSE UA (POCT) (mg/dL) Date Value 12/16/2024 Negative BILIRUBIN UA (POCT) (no units) Date Value 12/16/2024 Negative KETONE UA (POCT) (mg/dL) Date Value 12/16/2024 Negative SPECIFIC GRAVITY UA (POCT) (no units) Date Value 12/16/2024 1.020 HEMOGLOBIN/BLOOD UA (POCT) (no units) Date Value 12/16/2024 Large (A) PH UA (POCT) (no units) Date Value 12/16/2024 5.5 PROTEIN UA (POCT) (mg/dL) Date Value 12/16/2024 30 (A) UROBILINOGEN UA (POCT) (E.U./dL) Date Value 12/16/2024 0.2 NITRITE UA (POCT) (no units) Date Value 12/16/2024 Negative LEUKOCYTES UA (POCT) (no units) Date Value 12/16/2024 Moderate (A) COLOR UA (POCT) (no units) Date Value 12/16/2024 Yellow CLARITY UA (POCT) (no units) Date Value 12/16/2024 Clear ] MEDICATIONS potassium chloride ER (KLOR-CON) 20 mEq tablet TAKE 1 TABLET BY MOUTH TWICE A DAY lidocaine-prilocaine (EMLA) 2.5-2.5 % cream Apply to affected area as needed. insulin glargine (LANTUS SOLOSTAR U-100 INSULIN) 100 unit/mL (3 mL) Inject 30 Units subcutaneously every morning. DROPLET PEN NEEDLE 31 gauge x 3/16 1 each two times a day. amLODIPine (NORVASC) 5 mg tablet Take 5 mg by mouth once daily. traZODone (DESYREL) 50 mg tablet Take 1 tablet by mouth daily at bedtime. ursodiol (LEENA) 250 mg tablet Take 250 mg by mouth two times a day. everolimus, antineoplastic, (AFINITOR) 10 mg tablet TAKE 1 TABLET ONCE DAILY Sodium Fluoride, Dental Rinse, 0.2 % SWISH 10 ML BY MOUTH THEN SPIT ONCE WEEKLY diphenhydrAMINE-Acetami nophen (TYLENOL PM EXTRA STRENGTH) 25-500 mg tab Take 1 tablet by mouth at bedtime as needed. mycujooUCH ULTRA PLUS TEST strp 1 Each two [...] once daily. VITAMIN D 50,000 unit capsule Take 1 capsule by mouth one time a week. CALCIUM CARBONATE (CALCIUM 500 ORAL) Take 1 tablet by mouth once daily. nitrofurantoin monohydrate and macrocrystal (MACROBID) 100 mg capsule Take 1 capsule by mouth two times a day with meals for 7 days. tirzepatide (MOUNJARO) 2.5 mg/0.5 mL pen injector Inject 2.5 mg subcutaneously one time a week. (Patient not taking: Reported on 12/15/2024) losartan (COZAAR) 100 mg tablet Take 0.5 tablets by mouth every afternoon. (Patient not taking: Reported on 12/15/2024) hydroCHLOROthiazide 12.5 mg capsule Take 1 capsule by mouth once daily. (Patient not taking: Reported on 12/15/2024) metoprolol succinate ER (TOPROL XL) 25 mg 24 hr tablet take 1 tablet by mouth once daily (Patient not taking: Reported on 12/15/2024) exemestane (AROMASIN) 25 mg tablet Take 1 tablet by mouth once daily. 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 Normal [facility] UA DIP, URINE (POC)on 2024 BILIRUBIN UA (POCT) Negative Negative [facility] CLARITY UA (POCT) [facility] COLOR UA (POCT) Yellow [facility] GLUCOSE UA (POCT) Negative Negative mg/dL [facility] Hemoglobin Ql (U) Large Abnormal Negative [facility] Interpretation and review of laboratory results Abnormal [facility] KETONE UA (POCT) Negative Negative mg/dL [facility] LEUKOCYTES UA (POCT) Moderate Abnormal Negative [facility] NITRITE UA (POCT) Negative Negative [facility] PH UA (POCT) 5.5 4.5 - 8.0 [facility] Protein Ql (U) 30 mg/dL Abnormal Negative [facility] SPECIFIC GRAVITY UA (POCT) 1.020 1.005 - 1.030 [facility] UROBILINOGEN UA (POCT) 0.2 Noemy l E.U./dL [facility] Location:[facility], [address] [place] [address], [address] [place] [address] POINT OF CARE [facility] CBC W Auto Differential pane l (Bld)on 12-15-2024 Basophils (Bld) [#/Vol] 0.06 10*3/uL [facility] Basophils/100 WBC (Bld) 0.7 % [facility] Differential cell count method Nom (Bld) Auto [facility] Eosinophils (Bld) [#/Vol] 0.14 10*3/uL [facility] Eosinophils/100 WBC (Bld) 1.7 % [facility] Erythrocyte distribution width (RBC) [Ratio] 15.5 % High 11.5 - 15.0 % [facility] Hematocrit (Bld) [Volume fraction] 30.6 % Low 36.0 - 46.0 % [facility] Hemoglobin (Bld) [Mass/Vol] 10.0 g/dL Low 11.5 - 15.5 g/dL [facility] Immature granulocytes (Bld) [#/Vol] NINF [facility] Immature granulocytes/100 WBC (Bld) 0.2 % [facility] Interpretation and review of laboratory results Abnormal [facility] Lymphocytes (Bld) [#/Vol] 1.41 10*3/uL [facility] Lymphocytes/100 WBC (Bld) 17.4 % [facility] MCH (RBC) [Entitic mass] 28.8 pg 26.0 - 34.0 pg [facility] MCHC (RBC) [Mass/Vol] 32.7 g/dL 30.5 - 36.0 g/dL [facility] MCV (RBC) [Entitic vol] 88.2 fL 80.0 - 100.0 fL [facility] Monocytes (Bld) [#/Vol] 0.48 10*3/uL [facility] Monocytes/100 WBC (Bld) 5.9 % [facility] Neutrophils (Bld) [#/Vol] 5.98 10*3/uL [facility] Neutrophils/100 WBC (Bld) 74.1 % [facility] Nucleated RBC (Bld) [#/Vol] NINF [facility] Nucleated RBC/100 WBC (Bld) [Ratio] 0.0 % /100 WBC [facility] Platelet mean volume (Bld) [Entitic vol] 10.1 fL 9.0 - 12.7 fL [facility] Platelets (Bld) [#/Vol] 176 10*3/uL [facility] RBC (Bld) [#/Vol] 3.47 10*6/uL Low 3.90 - 5.20 m/uL [facility] WBC (Bld) [#/Vol] 8.09 10*3/uL [facility] Comprehensive metabolic 2000 panelOrdered By: Annabel Piña on 12-15-2024 Albumin [Mass/Vol] 4.0 g/dL 3.9 - 4.9 g/dL [facility] ALP [Catalytic activity/Vol] 71 U/L 34 - 123 U/L [facility] ALT [Catalytic activity/Vol] 9 U/L 7 - 38 U/L [facility] Anion gap [Moles/Vol] 13 mmol/L 8 - 15 mmol/L [facility] AST [Catalytic activity/Vol] 17 U/L 13 - 35 U/L [facility] Bilirubin [Mass/Vol] 0.3 mg/dL 0.2 - 1 .3 mg/dL [facility] Calcium [Mass/Vol] 9.1 mg/dL 8.5 - 10. 2 mg/dL [facility] Chloride [Moles/Vol] 105 mmol/L 98 - 10 7 mmol/L [facility] CO2 [Moles/Vol] 22 mmol/L 22 - 30 mmol/L [facility] Creatinine [Mass/Vol] 1.08 mg/dL High 0.58 - 0.96 mg/dL [facility] GFR/1.73 sq M.predicted among non-blacks MDRD (S/P/Bld) [Vol rate/Area] 57 mL/min/{1.73_m2} Low - PINF [facility] Comment on above: Estimated Glomerular Filtration Rate (eGFR) is calculated using the 2020 CKD-EPI creatinine equation. This equation utilizes serum creatinine, sex, and age as parameters. The creatinine assay has traceable calibration to isotope dilution-mass spectrometry. Refer to KDIGO guidelines for clinical interpretation. In patients with unstable renal function, e.g. those with acute kidney injury, the eGFR may not accurately reflect actual GFR. Glucose [Mass/Vol] 177 mg/dL High 74 - 99 mg/dL [facility] Comment on above: The [place] [employer] (ADA) provides guidance for cutoff values for fasting glucose and random glucose. The ADA defines fasting as no caloric intake for at least 8 hours. Fasting plasma glucose results between 100 to 125 mg/dL indicate increased risk for diabetes (prediabetes). Fasting plasma glucose results greater than or equal to 126 mg/dL meet the criteria for diagnosis of diabetes. In the absence of unequivocal hyperglycemia, results should be confirmed by repeat testing. In a patient with classic symptoms of hyperglycemia or hyperglycemic crisis, random plasma glucose results greater than or equal to 200 mg/dL meet the criteria for diagnosis of diabetes. Reference: Standards of Medical Care in Diabetes 2016, [place] [employer]. Diabetes Care. 2016.39(Suppl 1). Interpretation and review of laboratory results Abnormal [facility] Potassium [Moles/Vol] 4.3 mmol/L 3.7 - 5.1 mmol/L [facility] Protein [Mass/Vol] 7.4 g/dL 6.3 - 8.0 g/dL [facility] Sodium [Moles/Vol] 140 mmol/L 136 - 144 mmol/L [facility] Urea nitrogen [Mass/Vol] 27 mg/dL High 7 - 21 mg/dL [facility] ONC Echo Completeon 12-16-19 25 ONC Echo Complete [facility] [address] [place] [address] ONC Echo Complete 12/15/24 1304 MR#: [id number] Acct: [id number] Name: PAT SORTO Rep #: [id number] : 1960 64 From: Andrea Peace MD Attending Dr: RUSSELL Lr Status: REG CL I Ordering Dr: Paulo Salazar Date: 12/15/24 Location: [facility] Sex: F C Admitted: Reason For Study Reason For Study: Decreased Strain, Chemotherapy Procedure This was a 2D Doppler, Color Flow transthoracic echocardiogram. Myocardial strain analysis was performed in this exam to aid in the assessment of cardiac function. Exam performed in department. Left Ventricle Normal LV size. The global longitudinal strain = -13.9% (abnormal). Left ventricular systolic function is lower limits of normal. The left ventricular ejection fraction is 50 %. Stage 1 diastolic dysfunction. Right Ventricle Normal RV size. Normal systolic function. Atria Normal left atrium. Normal right atrium. Mitral Valve There is Mild focal posterior mitral annular calcification. Mild (1+) mitral valve insufficiency. Tricuspid Valve Normal tricuspid valve. Mild to moderate (1-2+) tricuspid valve insufficiency. Pulmonary artery systolic pressure is 29 mmHg. Aortic Valve Trisinus/trileaflet aortic valve. Pulmonic Valve Normal pulmonic valve. Trivial pulmonic valve insufficiency. Great Vessels Normal sized aortic root. Pericardium/Pleural No pericardial effusion. MMode/2D Measurements Calculations LVIDd: 4.9 cm IVSd: 0.88 cm Ao root diam: 3.4 cm LVIDs: 3.4 cm LVPWd: 0.89 cm RVDd: 3.6 cm FS: 30.0 % LAV(MOD-bp): 52.7 ml LVAd ap4: 29.7 cm2 SV(MOD-sp4): 40.6 ml LAV(MOD-bp) Indexed: 27.5 ml/m2 LVLd ap4: 7.6 cm SI(MOD-sp4): 21.2 ml/m2 LAV(MOD-sp2): 54.0 ml EDV(MOD-sp4): 94.0 ml LAV(MOD-sp4): 46.2 ml EDV(sp4-el): 97.9 ml LVAs ap4: 20.5 cm2 LVLs ap4: 6.7 cm ESV(MOD-sp4): 53.4 ml ESV(sp4-el): 53.1 ml EF(MOD-sp4): 43.2 % EF(sp4-el): 45.7 % SV(sp4-el): 44.7 ml LA A4 area: 18.2 cm2 LA dimension(2D): 3.8 cm RA A4 area: 15.2 cm2 Time Measurements MV dec time: 0.21 sec Doppler Measurements Calculations MV E max ericka: 56.3 cm/sec Lat Peak E' Ericka: 8.5 cm/sec Med Peak E' Ericka: 3.9 cm/sec MV A max ericka: 94.7 cm/sec E/E' lat: 6.6 E/E' med: 14.3 MV E/A: 0.59 MV V2 max: 112.6 cm/sec MV P1/2t max ericka: 61.1 cm/sec Ao V2 max: 141.3 cm/sec MV max P.1 mmHg MV P1/2t: 70.0 msec Ao max P.0 mmHg MV V2 mean: 54.5 cm/sec Ao V2 mean: 99.7 cm/sec MV mean P.4 mmHg MV dec slope: 255.8 cm/sec2 Ao mean P.5 mmHg MV V2 VTI: 19.0 cm MVA(P1/2t): 3.1 cm2 Ao V2 VTI: 28.9 cm AV (velocity ratio): 0.79 LV V1 max: 113.3 cm/sec PA V2 max: 101.4 cm/sec TR max ericka: 256.1 cm/sec LV V1 max P.1 mmHg TR max P.4 mmHg LV V1 mean P.1 mmHg LV V1 mean: 83.8 cm/sec LV V1 VTI: 22.8 cm ECHO/ONC Echo Complete Interpretation Summary The left ventricular ejection fraction is 50 %. Stage 1 diastolic dysfunction. Mild (1+) mitral valve insufficiency. Mild to moderate (1-2+) tricuspid valve insufficiency. The global longitudinal strain = -13.9% (abnormal). Compared to the previous echo from August 2023 that has been some reduction in the left ventricular ejection fraction. Ordering Physician: Paulo Salazra Referring Physician: Paulo Salazar Performed By: Jamal Siegel RCS 12/23/24620 Date Andrea Peace MD CC: Dr. Jacinta Rivas MD; RUSSELL Lr Date Dictated: 12/15/24 1304 Date Transcribed: 12/23/24620 Tape Rules Printing Machine Operator: Signed Normal [facility] UA DIP, URINE (POC)on 2024 BILIRUBIN UA (POCT) Negative Negative [facility] CLARITY UA (POCT) Cloudy [facility] COLOR UA (POCT) Dark yellow [facility] GLUCOSE UA (POCT) 100 mg/dL Abnormal Negative [facility] Hemoglobin Ql (U) Large Abnormal Negative [facility] Interpretation and review of laboratory results Abnormal [facility] KETONE UA (POCT) Negative Negative mg/dL [facility] LEUKOCYTES UA (POCT) Moderate Abnormal [facility] ([facility]) Positive Abnormal Negative [facility] PH UA (POCT) 5.5 4.5 - 8.0 [facility] Protein Ql (U) 100 mg/dL Abnormal Negative [facility] SPECIFIC GRAVITY UA (POCT) 1.020 1.005 - 1.030 [facility] UROBILINOGEN UA (POCT) 0.2 Noemy l E.U./dL [facility] Location:[facility], [address], [place], [address] [facility] POINT OF CARE [facility] Limited Chest CT Cardiac Onl yon 12-10-[address] Cardiac Only [facility] Imaging Services [address] [place], [place] [id number] Limited Chest CT Cardiac Only MR#: [id number] Acct: [id number] Name: PAT SORTO Rep #: [id number] : 1960 F 64 From: Wil cox MD PCP: Dr. Jacinta Rivas MD Status: REG REF Study: Limited Chest CT Cardiac Only Date of Exam: Exam# [id number] Ordering Dr: Paulo Salazar PROCEDURE: LIMITED CHEST CT CARDIAC ONLY 12/10/2024 REASON FOR EXAM: FAM HX/HTN/ASCVS RISK TECHNIQUE: Procedure Code: [id number] Modality: CT Procedure: LIMITED CHEST CT CARDIAC ONLY CONTRAST: None One or more dose reduction techniques were used (e.g., Automated exposure control, adjustment of the mA and/or kV according to patient size, use of iterative reconstruction technique). RADIATION DOSE SUMMARY: CTDlvol: 12.19 mGy DLP: 219.42 mGycm COMPARISON: None FINDINGS: Mild coronary artery calcification. The heart is nonenlarged. Small benign-appearing mediastinal lymph nodes. The visualized lungs are unremarkable. CT/Limited Chest CT Cardiac Only IMPRESSION: Mild coronary artery calcification. Reading Location: [facility]--1 CC: Dr. Jacinta Rivas MD; RUSSELL Lr Tape Rules Printing Machine Operator: Signed Normal [facility] CNTHERAPYon 12-08-2024 CNTHERAPY OT/PT/Speech Visit (PNORCA) MACARIOPAT ANGELITA ([id number]) 1960 F UPA Date Time Provider Department 12/08/24 2:15 PM NOE JACKSON Date Time Provider Department Center 12/[facility]24 2[id number] [503] Primary Visit Diagnosis:Lymphedema of left arm [I89.0] Allergies As of Date: 12/08/2024 Noted Allergy Reaction AMOXICILLIN 11/15/2022 2 - Rash Comments: rash arms trunk neck face, itching Chills Tolerates Ancef Date Reviewed: 11/23/2024 Reviewed by: Zakia Roe, RN - Fully Assessed Prescriptions as of 12/08/2024 - lidocaine-prilocaine (EMLA) 2.5-2.5 % cream Apply to affected area as needed. - potassium chloride ER (KLOR-CON) 20 mEq tablet Take 1 tablet by mouth two times a day. - tirzepatide (MOUNJARO) 2.5 mg/0.5 mL pen [...] Take 1 tablet by mouth once daily. [facility] CNTHERAPYon 12-03-2024 CNTHERAPY OT/PT/Speech Visit (PNORCA) PAT SORTO ([id number]) 1960 F UPA Date Time Provider Department 12/03/24 9:45 AM NOE JACKSON [facility] Date Time Provider Department Center 12/03/2024 9:45 AM [id number], MIRANDA [facility] N Reason for Visit: Physical Therapy [503] Primary Visit Diagnosis:Lymphedema of left arm [I89.0] Allergies As of Date: 12/03/2024 Noted Allergy Reaction AMOXICILLIN 11/15/2022 2 - Rash Comments: rash arms trunk neck face, itching Chills Tolerates Anc Date Reviewed: 11/23/2024 Reviewed by: Zakia Roe, RN - Fully Assessed Prescriptions as of 12/03/2024 - lidocaine-prilocaine (EMLA) 2.5-2.5 % cream Apply to affected area as needed. - potassium chloride ER (KLOR-CON) 20 mEq tablet Take 1 tablet by mouth two times a day. - tirzepatide (MOUNJARO) 2.5 mg/0.5 mL pen [...] by mouth at bedtime as needed. - [employer] Technologies[employer]CH ULTRA PLUS TEST strp 1 Each two [...] 1 tablet by mouth once daily. Normal [facility] FERRITINon 12-01-2024 Ferritin [Mass/Vol] 307.0 ng/mL High 14.7 - 205.1 ng/mL [facility] Ferritin [Mass/Vol]on 2024 Interpretation and review of laboratory results Abnormal [facility] Iron and Iron binding capaci ty panelon 12-01-2024 Interpretation and review of laboratory results Normal [facility] Iron [Mass/Vol] 80 ug/dL 41 - 186 ug/dL [facility] Iron binding capacity [Mass/Vol] 282 ug/dL 232 - 386 ug/dL [facility] Iron/TIBC [Molar ratio] 28.4 % 15.0 - 57.0 % [facility] CBC W Auto Differential pane l (Bld)on 11-27-2024 Basophils (Bld) [#/Vol] 0.05 10*3/uL [facility] Basophils/100 WBC (Bld) 0.6 % [facility] Differential cell count method Nom (Bld) Auto [facility] Eosinophils (Bld) [#/Vol] 0.08 10*3/uL [facility] Eosinophils/100 WBC (Bld) 1.0 % [facility] Erythrocyte distribution width (RBC) [Ratio] 13.4 % 11.5 - 15.0 % [facility] Hematocrit (Bld) [Volume fraction] 26.7 % Low 36.0 - 46.0 % [facility] Hemoglobin (Bld) [Mass/Vol] 8.5 g/dL Low 11.5 - 15.5 g/dL [facility] Immature granulocytes (Bld) [#/Vol] 0.14 10*3/uL High [facility] Immature granulocytes/100 WBC (Bld) 1.7 % [facility] Interpretation and review of laboratory results Abnormal [facility] Lymphocytes (Bld) [#/Vol] 1.16 10*3/uL [facility] Lymphocytes/100 WBC (Bld) 14.0 % [facility] MCH (RBC) [Entitic mass] 27.3 pg 26.0 - 34.0 pg [facility] MCHC (RBC) [Mass/Vol] 31.8 g/dL 30.5 - 36.0 g/dL [facility] MCV (RBC) [Entitic vol] 85.9 fL 80.0 - 100.0 fL [facility] Monocytes (Bld) [#/Vol] 0.56 10*3/uL [facility] Monocytes/100 WBC (Bld) 6.8 % [facility] Neutrophils (Bld) [#/Vol] 6.28 10*3/uL [facility] Neutrophils/100 WBC (Bld) 75.9 % [facility] Nucleated RBC (Bld) [#/Vol] [facility] [facility] Nucleated RBC/100 WBC (Bld) [Ratio] 0.0 % /100 WBC [facility] Platelet mean volume (Bld) [Entitic vol] 9.0 fL 9.0 - 12.7 fL [facility] Platelets (Bld) [#/Vol] 385 10*3/uL [facility] RBC (Bld) [#/Vol] 3.11 10*6/uL Low 3.90 - 5.20 m/uL [facility] WBC (Bld) [#/Vol] 8.27 10*3/uL [facility] Comprehensive metabolic 2000 panelOrdered By: Annabel Piña on 11-27-2024 Albumin [Mass/Vol] 3.5 g/dL Low 3.9 - 4.9 g/dL [facility] ALP [Catalytic activity/Vol] 69 U/L 34 - 123 U/L [facility] ALT [Catalytic activity/Vol] 15 U/L 7 - 38 U/L [facility] Anion gap [Moles/Vol] 11 mmol/L 8 - 15 mmol/L [facility] AST [Catalytic activity/Vol] 17 U/L 13 - 35 U/L [facility] Bilirubin [Mass/Vol] 0.2 mg/dL 0.2 - 1 .3 mg/dL [facility] Calcium [Mass/Vol] 9.9 mg/dL 8.5 - 10. 2 mg/dL [facility] Chloride [Moles/Vol] 105 mmol/L 98 - 10 7 mmol/L [facility] CO2 [Moles/Vol] 22 mmol/L 22 - 30 mmol/L [facility] Creatinine [Mass/Vol] 1.58 mg/dL High 0.58 - 0.96 mg/dL [facility] GFR/1.73 sq M.predicted among non-blacks MDRD (S/P/Bld) [Vol rate/Area] 36 mL/min/{1.73_m2} Low - PINF [facility] Comment on above: Estimated Glomerular Filtration Rate (eGFR) is calculated using the 2020 CKD-EPI creatinine equation. This equation utilizes serum creatinine, sex, and age as parameters. The creatinine assay has traceable calibration to isotope dilution-mass spectrometry. Refer to KDIGO guidelines for clinical interpretation. In patients with unstable renal function, e.g. those with acute kidney injury, the eGFR may not accurately reflect actual GFR. Glucose [Mass/Vol] 146 mg/dL High 74 - 99 mg/dL [facility] Comment on above: The [place] [employer] (ADA) provides guidance for cutoff values for fasting glucose and random glucose. The ADA defines fasting as no caloric intake for at least 8 hours. Fasting plasma glucose results between 100 to 125 mg/dL indicate increased risk for diabetes (prediabetes). Fasting plasma glucose results greater than or equal to 126 mg/dL meet the criteria for diagnosis of diabetes. In the absence of unequivocal hyperglycemia, results should be confirmed by repeat testing. In a patient with classic symptoms of hyperglycemia or hyperglycemic crisis, random plasma glucose results greater than or equal to 200 mg/dL meet the criteria for diagnosis of diabetes. Reference: Standards of Medical Care in Diabetes 2016, [place] [employer]. Diabetes Care. 2016.39(Suppl 1). Interpretation and review of laboratory results Abnormal [facility] Potassium [Moles/Vol] 4.7 mmol/L 3.7 - 5.1 mmol/L [facility] Protein [Mass/Vol] 6.9 g/dL 6.3 - 8.0 g/dL [facility] Sodium [Moles/Vol] 138 mmol/L 136 - 144 mmol/L [facility] Urea nitrogen [Mass/Vol] 28 mg/dL High 7 - 21 mg/dL [facility] BRIEF OP NOTon 11-23-2024 BRIEF OP NOT HNO ID: [id number] Author: LUCIAN RYAN MD Service: Interventional Radiology Author Type: Physician Type: Brief Op Note Filed: 11/23/2024 12:35 Note Text: INTERVENTIONAL RADIOLOGY POST PROCEDURE NOTE DATE: 11/23/24 NAME: Pat Sorto LOG ID: [id number] Pre-Procedure Diagnosis: Left breast cancer Manager Beauty: Surgeon(s) and Role: * Lucian Ryan MD, MD - Primary Procedure: Chest port insertion (right IJV) Anesthesia: Local anesthesia and procedural sedation Findings: US shows patency of the chosen IJV. A chest port was placed under fluoroscopic guidance. The port has good position and function and is ready to use. Estimated Blood Loss: 5 mL Specimen: None Complications: None Post-Op/Post-Procedure Diagnosis: Successful placement of a chest port as described above. 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 Husam Hart in [place] PAST SURGICAL HISTORY Procedure Laterality Date ARTHRP ACETBLR/PROX FEM PROSTC AGRFT/ALGRFT Right 03/20/2019 Hip replacement, total ARTHRP KNE CONDYLEANDPLATU MEDIALANDLAT COMPARTMENTS Left 02/2016 BIOPSY BREAST OPEN INCISIONAL Left 2007 [facility] benign pathology per patient BREAST RECONSTRUCTION Left 2018 fat graft/implant exchange DELIVERY ONLY 1996,1993 , low transverse MASTECTOMY HX Left 2017 AND with immediate reconstruction MASTECTOMY, SIMPLE, COMPLETE Left 05/18/2024 removal of implant, WLE of chest wall PAST SURGICAL HISTORY OF 2022 bronchoscopy No current facility-administered medications for this encounter. ALLERGIES Allergen Reactions Amoxicillin Rash rash arms trunk neck face, itching Chills Tolerates Ancef REVIEW OF SYSTEMS: PAIN ASSESSMENT: No history of chronic pain. No current treatment for chronic pain. GENERAL: Negative for significant weight loss, malaise or fevers HEENT: Negative for headaches. No changes in hearing or vision. No nose bleeds. NECK: Negative for large lumps, goiter or neck swelling. RESPIRATORY: Negative for cough, hemoptysis, wheezing, dyspnea or shortness of breath. CARDIOVASCULAR: Negative for chest pain, leg swelling, hypertension, CHF or palpitations GI: No nausea, vomiting, or diarrhea. : No dysuria, frequency or incontinence MUSCULOSKELETAL: Negative for joint pain or swelling, back pain or muscle pain. SKIN: Negative for lesions, rash, and itching. PSYCH: Negative for sleep disturbance, mood disorder and recent psychosocial stressors. HEMATOLOGY/LYMPHOLOGY: Negative for prolonged bleeding and bruising. No swollen nodes. ENDOCRINE: Negative for cold or heat intolerance, polyuria, polydipsia and goiter. NEURO: No history of headaches, syncope, paralysis, seizures or tremors. PHYSICAL EXAM: BP 171/82 Temp (Src) 97.7 (Temporal) Resp 18 Ht 5' 6 (1.68m) Wt 178 lb (80.7kg) SpO2 100% BMI 28.74 kg/(m2). O2 Therapy: Room Air GENERAL: Alert. No distress. Cooperative. SKIN: Skin color, texture, turgor are normal. No significant rashes or lesions. HEAD/SINUSES: No significant findings EYES: PERRLA, EOMI EARS: External ears normal. Canals not evaluated. NOSE: Nares normal. Septum midline. OROPHARYNX: No significant lesions in lips, mucosa, tongue, teeth, gums, and oropharynx. NECK: No venous distention, No carotid bruits, Carotid pulse normal. BACK: Back symmetric, normal curvature, ROM normal. LUNGS: Lungs clear to auscultation, Good diaphragmatic excursion. CARDIAC: Normal S1 and S2; no rubs, murmurs, or gallops. BREASTS: Noncontributory. ABDOMEN: Abdomen soft, non-tender, BS normal, No masses or organomegaly. EXTREMITIES: No deformities, edema, skin discoloration, or ulcers. Good capillary refill. NEURO: Gait normal. Reflexes normal and symmetric. Sensation grossly intact. PULSES: 2+ radial, 2+ carotid. GENITALIA: Noncontributory. RECTAL: Noncontributory. WOUND: None. PRESSURE ULCERS: None. The remainder of the physical exam is noncontributory. RELEVANT LABS: Hemoglobin (g/dL) Date Value 11/20/2024 9.0 02/15/2021 12.0 Hematocrit (%) Date Value 11/20/2024 26.8 02/15/2021 35.5 WBC (k/uL) Date Value 11/20/2024 6.40 02/15/2021 7.16 Glucose (mg/dL) Date Value 11/20/2024 136 11/09/2024 144 10/27/2024 204 02/15/2021 148 08/31/2020 125 07/19/2020 102 Potassium (mmol/L) Date Value 11/20/2024 3.0 11/09/2024 3.6 10/27/2024 3.8 02/15/2021 3.9 08/31/2020 4.0 07/19/2020 3.9 Sodium (mmol/L) Date Value 11/20/2024 138 11/09/2024 139 10/27/2024 137 02/15/2021 136 08/31/2020 140 07/19/2020 139 Chloride (mmol/L) Date Value 11/20/2024 102 11/09/2024 99 10/27/2024 100 02/15/2021 102 08/31/2020 105 07/19/2020 103 CO2 (mmol/L) Date Value 11/20/2024 21 11/09/2024 25 10/27/2024 23 02/15/2021 23 08/31/2020 25 07/19/2020 28 Creatinine (mg/dL) Date Value 11/20/2024 2.77 11/09/2024 1.89 10/27/2024 1.86 02/15/2021 0.96 08/31/2020 0.89 07/19/2020 1.00 BUN (mg/dL) Date Value 11/20/2024 30 11/09/2024 40 10/27/2024 49 02/15/2021 29 08/31/2020 29 07/20/19 (more content not included)... Normal [facility] IR PORTOCATH PLACEMENTon IR PORTOCATH PLACEMENT * * *Final Report * * * DATE OF EXAM: Nov 23 2024 12:15PM [facility] 0792 - IR PORTOCATH PLACEMENT / PROCEDURE REASON: Malignant neoplasm of left breast in female, estrogen recept * * * * Physician Interpretation * * * * 1. SONOGRAPHY GUIDED PUNCTURE: Right internal jugular vein 2. CHEST PORT PLACEMENT UNDER FLUOROSCOPIC GUIDANCE: Right chest. 3. MODERATE SEDATION CLINICAL DATA: Left breast cancer. The referring physician has requested image-guided chest port placement. COMPARISON: None. TECHNIQUE AND FINDINGS: The advantages, alternatives and potential complications of chest port placement (including but not limited to bleeding, infection, vessel perforation / thrombosis, pneumothorax, air embolism, adverse reaction to medications used during the procedure, and aggravation of underlying medical conditions among others) were discussed with the patient who understood the discussion and provided consent for the procedure. Preprocedural laboratory values were in an acceptable range for chest port placement. Time out was performed prior to the study. Sonographic evaluation of the neck confirmed patency of the right internal jugular vein. The surgical site was cleaned, prepped and draped. Maximal sterile barrier technique was used throughout the complete procedure. Local anesthesia was given to the soft tissues with lidocaine 1%. The chosen internal jugular vein was puncture under direct sonographic guidance with a 0.018-inches microset. A 0.035-inches guidewire was then advanced centrally. A surgical pocket was created in the soft tissues of the upper chest. The pocket was flushed with sterile normal saline. The connected port chamber and catheter were tunneled from the surgical pocket to the venous entry site. The reservoir was then introduced inside the pocket. The port chamber was secured to the pocket with Ethilon 2-0 x 2 sutures At the venous entry site, a peel-away sheath was placed over the wire. The catheter portion of the port was advanced centrally. The tip of the catheter was placed at the junction of the superior vena cava and right atrium. There was good aspiration and injection of the port. The port chamber was flushed with 20 cc of sterile normal saline. Suturing of the pocket was performed in 2 planes, deep interrupted with 2-0 Vycril and subcuticular with 4-0 Vycril. Surgical glue was applied to the incision sites. The patient tolerated the procedure well and was discharged from the IR suite in stable condition. There were no immediate complications. MODERATE SEDATION: Under Dr. Hyatt's supervision, Versed 1.5 mg and Fentanyl 75 micrograms were provided intravenously for moderate conscious sedation. Heart rate, blood pressure and oxygen saturation were continuously monitored during the complete procedure by the IR physician and IR nurse. Moderate sedation physician-patient face time: 49 minutes. Sedation time: Start 1126 hours. End: 1215 hours. Contrast: None. Cumulative dose: 0.73 mGy. Fluoroscopy time: 0.3 minutes. Estimated blood loss: Less than 10 cc. Prophylactic antibiotic: Cipro 400 mg IV. Medications: Lidocaine 1% 20 cc. IMPRESSION: 1. Successful placement of a right internal jugular vein chest port as described above. The chest port is ready for use. 2. No immediate complications. T[employer] Printing Machine Operator: PSCB Transcribe Date/Time: Nov 23 2024 9:46P Dictated by : LUCIAN RYAN MD This examination was interpreted and the report reviewed and electronically signed by: LUCIAN RYAN MD on Nov 23 2024 9:56PM EST [id number] Normal [facility] PT panel Coag (PPP)on 2024 INR Coag (PPP) [Relative time] 1.1 {INR} Normal 0.9-1.3 [facility] Comment on above: Order Comment: Speci men Type: BLOOD SPECIMENOrdering Facility: [facility] Address: [address] [place] [address] Result Comment: May min K Antagonist (VKA) Therapeutic Range: INR 2 to 3 (Target INR of 2.5) Note: For patients treated with VKA drugs, such as warfarin, the [place] [employer] 2012 Guideline recommends a therapeutic INR range of 2 to 3 (target INR of 2.5). This recommendation includes high-risk patients with antiphospholipid syndrome with previous arterial or venous thromboembolism, current-generation mechanical or bioprosthetic aortic heart valve replacement. Note: Patients with mechanical aortic valve replacement and additional risk factors for thromboembolic events (atrial fibrillation, previous thromboembolism, LV dysfunction, hypercoagulable conditions) or an older generation mechanical AVR (i.e., ball in-Cage) or any mechanical MVR should have a INR therapeutic range of 2.5 to 3.5 (target INR of 3). Marii KULKARNI, et al. Chest 2012, 141:7S-47S Alejandra RODRIGUES et al. [facility] 2017, 70: 252-289 Performed By: #### 3 4528-0 ####[facility] [id number] [place] [address] [place] PT Coag (PPP) [Time] 11.6 s Normal 9.7-13.0 [facility] Comment on above: Order Comment: Speci men Type: BLOOD SPECIMENOrdering Facility: [facility] Address: [address] [place] [address] Performed By: #### 3 4528-0 ####[facility] [id number] [place] [address] [place] Stroke after atrial fibrilla tion 5 year risk [#] Martinez 2002on 11-23-2024 IMPRESSION: 1. Successful placement of a right internal jugular vein chest port as described above. The chest port is ready for use. 2. No immediate complications. [employer] Printing Machine Operator: MARTÍNEZ Transcribe Date/Time: Nov 23 2024 9:46P Dictated by : LUCIAN RYAN MD This examination was interpreted and the report reviewed and electronically signed by: LUCIAN RYAN MD on Nov 23 2024 9:56PM [facility] * * *Final Report* * * DATE OF EXAM: Nov 23 2024 12:15PM [facility] 0792 - IR PORTOCATH PLACEMENT / PROCEDURE REASON: Malignant neoplasm of left breast in female, estrogen recept * * * * Physician Interpretation * * * * 1. SONOGRAPHY GUIDED PUNCTURE: Right internal jugular vein 2. CHEST PORT PLACEMENT UNDER FLUOROSCOPIC GUIDANCE: Right chest. 3. MODERATE SEDATION CLINICAL DATA: Left breast cancer. The referring physician has requested image-guided chest port placement. COMPARISON: None. TECHNIQUE AND FINDINGS: The advantages, alternatives and potential complications of chest port placement (including but not limited to bleeding, infection, vessel perforation / thrombosis, pneumothorax, air embolism, adverse reaction to medications used during the procedure, and aggravation of underlying medical conditions among others) were discussed with the patient who understood the discussion and provided consent for the procedure. Preprocedural laboratory values were in an acceptable range for chest port placement. Time out was performed prior to the study. Sonographic evaluation of the neck confirmed patency of the right internal jugular vein. The surgical site was cleaned, prepped and draped. Maximal sterile barrier technique was used throughout the complete procedure. Local anesthesia was given to the soft tissues with lidocaine 1%. The chosen internal jugular vein was puncture under direct sonographic guidance with a 0.018-inches microset. A 0.035-inches guidewire was then advanced centrally. A surgical pocket was created in the soft tissues of the upper chest. The pocket was flushed with sterile normal saline. The connected port chamber and catheter were tunneled from the surgical pocket to the venous entry site. The reservoir was then introduced inside the pocket. The port chamber was secured to the pocket with Ethilon 2-0 x 2 sutures At the venous entry site, a peel-away sheath was placed over the wire. The catheter portion of the port was advanced centrally. The tip of the catheter was placed at the junction of the superior vena cava and right atrium. There was good aspiration and injection of the port. The port chamber was flushed with 20 cc of sterile normal saline. Suturing of the pocket was performed in 2 planes, deep interrupted with 2-0 Vycril and subcuticular with 4-0 Vycril. Surgical glue was applied to the incision sites. The patient tolerated the procedure well and was discharged from the IR suite in stable condition. There were no immediate complications. MODERATE SEDATION: Under Dr. Hyatt's supervision, Versed 1.5 mg and Fentanyl 75 micrograms were provided intravenously for moderate conscious sedation. Heart rate, blood pressure and oxygen saturation were continuously monitored during the complete procedure by the IR physician and IR nurse. Moderate sedation physician-patient face time: 49 minutes. Sedation time: Start 1126 hours. End: 1215 hours. Contrast: None. Cumulative dose: 0.73 mGy. Fluoroscopy time: 0.3 minutes. Estimated blood loss: Less than 10 cc. Prophylactic antibiotic: Cipro 400 mg IV. Medications: Lidocaine 1% 20 cc. [facility] Provider, [facility] Anitha turner Friend - 11/23/2024 * * *Final Report* * * DATE OF EXAM: Nov 23 2024 12:15PM [facility] 0792 - IR PORTOCATH PLACEMENT / PROCEDURE REASON: Malignant neoplasm of left breast in female, estrogen recept * * * * Physician Interpretation * * * * 1. SONOGRAPHY GUIDED PUNCTURE: Right internal jugular vein 2. CHEST PORT PLACEMENT UNDER FLUOROSCOPIC GUIDANCE: Right chest. 3. MODERATE SEDATION CLINICAL DATA: Left breast cancer. The referring physician has requested image-guided chest port placement. COMPARISON: None. TECHNIQUE AND FINDINGS: The advantages, alternatives and potential complications of chest port placement (including but not limited to bleeding, infection, vessel perforation / thrombosis, pneumothorax, air embolism, adverse reaction to medications used during the procedure, and aggravation of underlying medical conditions among others) were discussed with the patient who understood the discussion and provided consent for the procedure. Preprocedural laboratory values were in an acceptable range for chest port placement. Time out was performed prior to the study. Sonographic evaluation of the neck confirmed patency of the right internal jugular vein. The surgical site was cleaned, prepped and draped. Maximal sterile barrier technique was used throughout the complete procedure. Local anesthesia was given to the soft tissues with lidocaine 1%. The chosen internal jugular vein was puncture under direct sonographic guidance with a 0.018-inches microset. A 0.035-inches guidewire was then advanced centrally. A surgical pocket was created in the soft tissues of the upper chest. The pocket was flushed with sterile normal saline. The connected port chamber and catheter were tunneled from the surgical pocket to the venous entry site. The reservoir was then introduced inside the pocket. The port chamber was secured to the pocket with Ethilon 2-0 x 2 sutures At the venous entry site, a peel-away sheath was placed over the wire. The catheter portion of the port was advanced centrally. The tip of the catheter was placed at the junction of the superior vena cava and right atrium. There was good aspiration and injection of the port. The port chamber was flushed with 20 cc of sterile normal saline. Suturing of the pocket was performed in 2 planes, deep interrupted with 2-0 Vycril and subcuticular with 4-0 Vycril. Surgical glue was applied to the incision sites. The patient tolerated the procedure well and was discharged from the IR suite in stable condition. There were no immediate complications. MODERATE SEDATION: Under Dr. Hyatt's supervision, Versed 1.5 mg and Fentanyl 75 micrograms were provided intravenously for moderate conscious sedation. Heart rate, blood pressure and oxygen saturation were continuously monitored during the complete procedure by the IR physician and IR nurse. Moderate sedation physician-patient face time: 49 minutes. Sedation time: Start 1126 hours. End: 1215 hours. Contrast: None. Cumulative dose: 0.73 mGy. Fluoroscopy time: 0.3 minutes. Estimated blood loss: Less than 10 cc. Prophylactic antibiotic: Cipro 400 mg IV. Medications: Lidocaine 1% 20 cc. IMPRESSION IMPRESSION: 1. Successful placement of a right internal jugular vein chest port as described above. The chest port is ready for use. 2. No immediate complications. Tape Rules Printing Machine Operator: MARTÍNEZ Transcribe Date/Time: Nov 23 2024 9:46P Dictated by : LUCIAN RYAN MD This examination was interpreted and the report reviewed and electronically signed by: LUCIAN RYAN MD on Nov 23 2024 9:56PM EST [facility] Radiology Study observation (narrative) [facility] Stroke after atrial fibrilla tion 5 year risk [#] MarquitaJessicaMitch 2002Ordered By: [facility] Provider on 11-23-2024 [facility] Culture, Blood (WB)on 2024 CUB Blood cultures x2, f rom two different sites No growth in 5 days. Normal [facility] Comment on above: Performed By: #### M 200.1000 ####[facility] [id number] [place], [place], [id number] ANCAon 11-19-2024 Atypical pANCA <1:20 Normal Neg:<1:[address] [facility] Comment on above: Result Comment: The atypical pANCA pattern has been observed in a significant percentage of patients with ulcerative colitis, primary sclerosing cholangitis and autoimmune hepatitis. Performed at: - Lab[address] [id number] Tapering Machine Operator: Ney Echeverria PhD, Phone: [phone] Performed By: #### L 224.099 #### [facility] [address] [place], [place], [address] Cytoplasmic Ab <1:20 Normal Neg:<1:[address] [facility] Comment on above: Performed By: #### L 501.080 #### [facility] [address] [place], [place], [id number] Perinuclear Ab. <1:20 Normal Neg:<1:[address] [facility] Comment on above: Result Comment: The presence of positive fluorescence exhibiting P-ANCA or C-ANCA patterns alone is not specific for the diagnosis of Henrique's Granulomatosis (WG) or microscopic polyangiitis. Decisions about treatment should not be based solely on ANCA IFA results. The International ANCA Group Consensus recommends follow up testing of positive sera with both [place]- 3 and MPO-ANCA enzyme immunoassays. As many as 5% serum samples are positive only by EIA. Ref. AM J Clin Pathol 1999;111:507-513. Performed By: #### L 501.080 #### [facility] [address] [place], [place], [address] Absolute lymphocyte countOrd ered By: William Minaya on 11-18-2024 Lymphocytes Auto (Unsp spec) [#/Vol] 1.06 10*3/uL 0.83-4.[address] [facility] Absolute neutrophil countOrd ered By: William Minaya on 11-18-2024 Neutrophils (Bld) [#/Vol] 3.8 10*3/uL 2.0-7.[address] [facility] Anion gap in Serum or Plasma Ordered By: William Minaya on 11-18-2024 Anion gap [Moles/Vol] 15 mmol/L 5-15 [facility] Automated lymphocyte count a s percentage of total leukocytesOrdered By: William Minaya on 11-18-2024 Lymphocytes/100 WBC Auto (Unsp spec) 18.5 % Low 19-[address] [facility] BUN/creatinine ratioOrdered By: William Minaya on 11-18-2024 Urea nitrogen/Creatinine [Mass ratio] 11.5 mg/mg 10-[address] [facility] Basic Metabolic Profile (BMP )on 11-18-2024 BUN/CRE 11.5 RATIO Normal -[address] [facility] Comment on above: Performed By: #### L 501.080 #### [facility] [address] [place], [address] Calcium [Mass/Vol] 7.3 mg/dL Low 7.6-11.0 [facility] Comment on above: Performed By: #### L 501.080 #### [facility] [address] [place], [address] Chloride [Moles/Vol] 103 mmol/L Normal 98-108 [facility] Comment on above: Performed By: #### L 501.080 #### [facility] [address] [place], [address] CO2 [Moles/Vol] 19.2 mmol/L Low 21.0-32.[address] [facility] Comment on above: Performed By: #### L 501.080 #### [facility] [address] [place], [address] Creatinine [Mass/Vol] 3.06 mg/dL High 0.70-1.20 [facility] Comment on above: Performed By: #### L 501.080 #### [facility] [address] [place], [address] ECRCL 19.74 ml/min Low 50-[address] [facility] Comment on above: Performed By: #### L 501.080 #### [facility] [address] [place], [address] GAP 15 Normal 5-[address] [facility] Comment on above: Performed By: #### L 501.080 #### [facility] [address] [place], [address] GFR/1.73 sq M.predicted among non-blacks MDRD (S/P/Bld) [Vol rate/Area] 16 mL/min/{1.73_m2} Low >[address] [facility] Comment on above: Result Comment: mL/m in/1.73m2 CKD-EPI Creatinine Equation (2020) Performed By: #### L 501.080 #### [facility] [address] [place], [address] Glucose [Mass/Vol] 87 mg/dL Normal 70-99 [facility] Comment on above: Performed By: #### L 501.080 #### [facility] [address] [place], [address] Potassium [Moles/Vol] 3.0 mmol/L Low 3.3-5.1 [facility] Comment on above: Performed By: #### L 501.080 #### [facility] [address] [place], [address] Sodium [Moles/Vol] 137 mmol/L Normal 133-145 [facility] Comment on above: Performed By: #### L 501.080 #### [facility] [address] [place], [address] Urea nitrogen [Mass/Vol] 35 mg/dL High 4-[address] [facility] Comment on above: Performed By: #### L 501.080 #### [facility] [address] [place], [address] Basophil percentageOrdered B y: William Minaya on 11-18-2024 Basophils/100 WBC (Bld) 0.3 % 0-1 [facility] Bedside Glucoseon 11-18-2024 FINGERSTICK GLU 141 mg/dL High 74-[address] [facility] Comment on above: Result Comment: LISA BECKHAM OF PATIENT CARE PER NURSING PROTOCOL Performed By: #### L 501.080 ####[facility] [address] [place], [address] FINGERSTICK GLU 87 mg/dL Normal 74-[address] [facility] Comment on above: Result Comment: LISA BECKHAM OF PATIENT CARE PER NURSING PROTOCOL Performed By: #### L 501.080 ####[facility] [address] [place], [address] CBC W/Diff, Automatedon 08-04 10-2024 Absolute Lymph 1.06 X10 3/uL Normal 0.83-4.[address] [facility] Comment on above: Performed By: #### L 501.080 #### [facility] [address] [place], [address] Absolute Neut 3.8 X10 3/uL Normal 2.0-7.[address] [facility] Comment on above: Performed By: #### L 501.080 #### [facility] [address] [place], [address] Basophils/100 WBC (Bld) 0.3 % Normal 0-1 [facility] Comment on above: Performed By: #### L [id number] #### [facility] [address] [place], [address] Eosinophils/100 WBC (Bld) 0.2 % Normal 0-[address] [facility] Comment on above: Performed By: #### L [id number] #### [facility] [address] [place], [address] Erythrocyte distribution width (RBC) [Ratio] 12.8 % Normal 11.6-14.[address] [facility] Comment on above: Performed By: #### L [id number] #### [facility] [address] [place], [address] Hematocrit (Bld) [Volume fraction] 23.0 % Low 37-[address] [facility] Comment on above: Performed By: #### L [id number] #### [facility] [address] [place], [address] Hemoglobin (Bld) [Mass/Vol] 7.9 g/dL Low 12.0-15.[address] [facility] Comment on above: Performed By: #### L 501.080 #### [facility] [address] [place], [address] IG% 0.300 Normal 0.0-0.[address] [facility] Comment on above: Result Comment: IG% - Immature Granulocytes (promyelocytes, myelocytes and metamyelocytes) > 1% indicates that a LEFT SHIFT is Present. Performed By: #### L 501.080 #### [facility] [address] [place], [address] Lymphocytes/100 WBC (Bld) 18.5 % Low 19-[address] [facility] Comment on above: Performed By: #### L 501.080 #### [facility] [address] [place], [address] MCH (RBC) [Entitic mass] 27.6 pg Normal 27.0-32.[address] [facility] Comment on above: Performed By: #### L [id number] #### [facility] [address] [place], [address] MCHC (RBC) [Mass/Vol] 34.3 g/dL Normal 32-36 [facility] Comment on above: Performed By: #### L [id number] #### [facility] [address] [place], [address] MCV (RBC) [Entitic vol] 80.4 fL Low 81-99 [facility] Comment on above: Performed By: #### L 501.080 #### [facility] [address] [place], [address] Monocytes/100 WBC (Bld) 13.5 % High 0-10 [facility] Comment on above: Performed By: #### L 501.080 #### [facility] [address] [place], [address] Neutrophils/100 WBC (Bld) 67.2 % Normal 47-[address] [facility] Comment on above: Performed By: #### L 501.080 #### [facility] [address] [place], [address] Nucleated RBC (Bld) [#/Vol] 0 10*3/uL Normal 0-[address] [facility] Comment on above: Performed By: #### L 501.080 #### [facility] [address] [place], [address] Platelet mean volume (Bld) [Entitic vol] 11.3 fL Normal 6.2-12.[address] [facility] Comment on above: Performed By: #### L [id number] #### [facility] [address] [place], [address] Platelets (Bld) [#/Vol] 113 10*3/uL Low 150-[address] [facility] Comment on above: Performed By: #### L 501.080 #### [facility] [address] [place], [address] RBC (Bld) [#/Vol] 2.86 10*6/uL Low 4.2-5.4 [facility] Comment on above: Performed By: #### L 501.080 #### [facility] [address] [place], [address] RDW SD 37.3 fl Normal 35.1-43.[address] [facility] Comment on above: Performed By: #### L 501.080 #### [facility] [address] [place], [address] WBC (Bld) [#/Vol] 5.7 10*3/uL Normal 4.4-11.0 [facility] Comment on above: Performed By: #### L 501.080 #### [facility] [address] [place], [address] CRPon 11-18-2024 C-REACTIVE PROT 176.00 mg/L High 0.0-3.[address] [facility] Comment on above: Performed By: #### L 501.6710, L100.9950 ####[facility] [address], [address] Carbon dioxide, total [Moles /volume] in Central venous bloodOrdered By: William Minaya on 11-18-2024 CO2 [Moles/Vol] 19.2 mmol/L Low 21.0-32.[address] [facility] Chloride assayOrdered By: Sushila Minaya on 11-18-2024 Chloride [Moles/Vol] 103 mmol/L 98-108 [facility] Discharge Instructionon 11-06 Discharge Instruction [facility] Medical Records Department [address] [place] [address] Instructions for Home/Discharge Instructions 11/18/24 1210 MR#: [id number] Acct: [id number] Name: PAT SORTO Rep #: [id number] : 1960 64 From: William Minaya MD PCP: Dr. Jacinta Rivas MD Status:ADM IN Discharge Instructions DC O2, CPAP, BIPAP needs Home O2 Discharge instructions: No Dressing / Incision Discharge Activity: Return to Normal Activity Dressing / Incision Call your doctor if you observe: Fever of 101 or Higher, Shortness of breath, Dizziness, Fainting spells, Swelling in the ankles, Chest pain and Increased palpitations (irregular heartbeat) Follow Up Care Test Results: Test results from this visit will be discussed in further detail at your follow-up appointment, if applicable. Discharge Plan Admission Admit Date/Time: 11/15/24 22:14 Attending Provider: William Minaya Primary Care Provider: Jacinta Rivas Consulting Providers: Meri Vu; Annabel Carter Instructions Additional Instructions / Restrictions: I discussed your case with your oncologist, he feels that you would be able to hold your everolimus and exemestane for a week or 2 while you are in [facility] to allow time for your kidneys to recover. I discontinued all of your blood pressure medications except for your amlodipine. I do recommend that you follow-up with your PCP when you return from [facility] to see if any further adjustments need to be made. I gave you 10 days worth of cefdinir 300 mg p.o. daily this antibiotic is dose adjusted because of your kidney disease. Please take 5 tablets and then take the remainder with you to [place] in case you develop symptoms of a UTI while there. Discharge Orders/Prescriptions Prescriptions: New cefdinir 300 mg capsule 300 mg PO DAILY 10 Days Qty: 10 0RF Rx Instructions: Take 5 days tablet. Keep 5 tablets for when you go to [facility] incase you develop a recurrent infection Continued aspirin 81 mg tablet,chewable 81 mg PO ONCE vitamin E (dl, acetate) 100 unit capsule 400 unit PO QDAY ascorbic acid (vitamin C) 100 mg tablet 500 mg PO QDAY ursodiol [LEENA Forte] 500 mg tablet 1,250 mg PO QDAY lorazepam 0.5 mg tablet 0.5 mg PO TID PRN (Reason: anxiety) exemestane 25 mg tablet 25 mg PO DAILY everolimus (antineoplastic) 10 mg tablet 10 mg PO DAILY pantoprazole 40 mg tablet,delayed release (DR/EC) 40 mg PO DAILY calcium carbonate 500 mg calcium (1,250 mg) tablet 1,000 mg PO DAILY insulin glargine [Lantus Solostar U-100 Insulin] 100 unit/mL (3 mL) insulin pen 20 unit subcut QAM amlodipine 5 mg tablet 5 mg PO QDAY Qty: 90 3RF cyanocobalamin (vitamin B-12) 1,000 MCG capsule 1,000 mcg PO DAILY ergocalciferol (vitamin D2) [Vitamin D2] 1,250 mcg (50,000 unit) capsule 50,000 unit PO QWEEK trazodone 50 mg tablet 50 mg PO QHS Mounjaro 2.5 mg/0.5 mL pen injector 2.5 mg subcut QWEEK Discontinued metoprolol succinate 25 mg tablet extended release 24 hr 25 mg PO QDAY hydrochlorothiazide 12.5 mg tablet 12.5 mg PO QDAY losartan 25 mg tablet 50 mg PO DAILY Referrals / Follow Up: Jacinta Rivas MD [Primary Care Provider] - Serena Carrasco DO [Med Staff - Active Staff] - Within 1 Week Disposition Disposition (needs filled in before D/C Order can be placed): Home, Self Care 11/18/24 1216 William Minaya MD CC: Dr. Meri Vu MD; Dr. Annabel Carter DO; Dr. Jacinta Rivas MD Signed Normal [facility] Eosinophil percentageOrdered By: William Minaya on 11-18-2024 Eosinophils/100 WBC (Bld) 0.2 % 0-[address] [facility] Erythrocyte distribution wid th ratioOrdered By: William Minaya on 11-18-2024 Erythrocyte distribution width (RBC) [Ratio] 12.8 % 11.6-14.[address] [facility] Erythrocyte distribution wid th standard deviationOrdered By: William Minaya on 11-18-2024 Erythrocyte distribution width (RBC) [Ratio] 37.3 fl 35.1-43.[address] [facility] Glomerular filtration rate ( GFR) estimation/1.73 sq m using serum, plasma, or whole bOrdered By: William Minaya on 11-18-2024 GFR/1.73 sq M.predicted among non-blacks MDRD (S/P/Bld) [Vol rate/Area] 16 mL/min/{1.73_m2} Low >[address] [facility] Comment on above: mL/min/1.73m2 CKD-EP I Creatinine Equation (2020) [facility] deOrdered By: William Minaya on 11-18-2024 Glucose [Mass/Vol] 141 mg/dL High 74-106 [facility] Comment on above: MANAGEMENT OF PATIEN T CARE PER NURSING PROTOCOL Hematocrit Auto (Bld) [Volum e fraction]Ordered By: William Minaya on 11-18-2024 Hematocrit (Bld) [Volume fraction] 23.0 % Low 37-[address] [facility] Hemoglobin measurementOrdere d By: William Minaya on 11-18-2024 Hemoglobin (Bld) [Mass/Vol] 7.9 g/dL Low 12.0-15.[address] [facility] Immature granulocytes/100 WB C Auto (Bld)Ordered By: William Minaya on 11-18-2024 Immature granulocytes/100 WBC (Bld) 0.300 % 0.0-0.[address] [facility] Comment on above: IG% - Immature Granu locytes (promyelocytes, myelocytes and metamyelocytes) > 1% indicates that a LEFT SHIFT is Present. Immature platelet percentage Ordered By: William Minaya on 11-18-2024 Platelets reticulated/100 platelets Auto (Bld) 3.4 % 1.0-7.[address] [facility] Comment on above: Low PLT + Low IPF marie ggest a bone marrow production disorderLow PLT + high IPF suggests peripheral destruction(e.g.ITP, TTP, HIT, DIC, autoimmune) or bone marrow recoveryTrending of serial IPF measurements is recommended when evaluating for bone marrow responesValue above normal range indicates an increase in RBC cellular response from bone marrow. MCV (mean corpuscular volume ) determinationOrdered By: William Minaya on 11-18-2024 MCV (RBC) [Entitic vol] 80.4 fL Low 81-99 [facility] Mean corpuscular hemoglobin (MCH) determinationOrdered By: William Minaya on 11-18-2024 MCH (RBC) [Entitic mass] 27.6 pg 27.0-32.[address] [facility] Mean corpuscular hemoglobin concentration (MCHC) determinationOrdered By: William Minaya on 11-18-2024 MCHC (RBC) [Mass/Vol] 34.3 g/dL 32-36 [facility] Mean platelet volume determi nationOrdered By: William Minaya on 11-18-2024 Platelet mean volume (Bld) [Entitic vol] 11.3 fL 6.2-12.[address] [facility] Monocyte percentageOrdered B y: William Minaya on 11-18-2024 Monocytes/100 WBC (Bld) 13.5 % High 0-10 [facility] Neutrophil percentageOrdered By: William Minaya on 11-18-2024 Neutrophils/100 WBC (Bld) 67.2 % 47-[address] [facility] Nucleated red blood cell per centageOrdered By: William Minaya on 11-18-2024 Nucleated RBC/100 WBC (Bld) [Ratio] 0 % 0-[address] [facility] Platelet countOrdered By: Sushila Minaya on 11-18-2024 Platelets (Bld) [#/Vol] 113 10*3/uL Low 150-[address] [facility] Potassium measurement (mass/ volume)Ordered By: William Minaya on 11-18-2024 Potassium (Unsp spec) [Mass/Vol] 3.0 mmol/L Low 3.3-5.[address] [facility] RBC Auto (Bld) [#/Vol]Ordere d By: William Minaya on 11-18-2024 RBC (Bld) [#/Vol] 2.86 10*6/uL Low 4.2-5.4 [facility] Retic Panelon 11-18-2024 IM RET FRACTION 6.20 Normal 3.00-15.[address] [facility] Comment on above: Performed By: #### L 501.6710, L100.9950 ####[facility] [address] [place], [place], [address] IPF 3.4 Normal 1.0-7.[address] [facility] Comment on above: Result Comment: Low PLT + Low IPF suggest a bone marrow production disorder Low PLT + high IPF suggests peripheral destruction (e.g.ITP, TTP, HIT, DIC, autoimmune) or bone marrow recovery Trending of serial IPF measurements is recommended when evaluating for bone marrow respones Value above normal range indicates an increase in RBC cellular response from bone marrow. Performed By: #### L 501.6710, L100.9950 ####[facility] [address] [place], [address] RET-HE 24.7 pg Low 30-[address] [facility] Comment on above: Performed By: #### L 501.6710, L100.9950 ####[facility] [address] [place], [address] Retic Count 1.12 Normal 0.5-1.[address] [facility] Comment on above: Performed By: #### L 501.6710, L100.9950 ####[facility] [address] [place], [address] Reticulocyte hemoglobin equi valent (RET-He) measurementOrdered By: William Minaya on 11-18-2024 Hemoglobin (Reticulocytes) [Entitic mass] 24.7 pg Low 30-[address] [facility] Reticulocytes Auto (Bld) [#/ Vol]Ordered By: William Minaya on 11-18-2024 Reticulocytes/100 RBC (Bld) 1.12 % 0.5-1.[address] [facility] Serum creatinine measurement (mass/volume)Ordered By: William Minaya on 11-18-2024 Creatinine [Mass/Vol] 3.06 mg/dL High 0.70-1.20 [facility] Serum glucose measurement (m ass/volume)Ordered By: William Minaya on 11-18-2024 Glucose [Mass/Vol] 87 mg/dL 70-99 [facility] Serum or plasma C reactive p rotein measurement (mass/volume)Ordered By: William Minaya on 11-18-2024 CRP [Mass/Vol] 176.00 mg/L High 0.0-3.[address] [facility] Serum or plasma calcium ashley urement (mass/volume)Ordered By: William Minaya on 11-18-2024 Calcium [Mass/Vol] 7.3 mg/dL Low 7.6-11.0 [facility] Serum or plasma urea nitroge n measurement (mass/volume)Ordered By: William Minaya on 11-18-2024 Urea nitrogen [Mass/Vol] 35 mg/dL High 4-[address] [facility] Sodium levelOrdered By: Garret Minaya on 11-18-2024 Sodium [Moles/Vol] 137 mmol/L 133-145 [facility] White blood cell (WBC) count Ordered By: William Minaya on 11-18-2024 WBC (Bld) [#/Vol] 5.7 10*3/uL 4.4-11.0 [facility] Basic Metabolic Profile (BMP )on 11-17-2024 BUN/CRE 12.3 RATIO Normal 10-[address] [facility] Comment on above: Performed By: #### L 500.9400 #### [facility] [address] [place], [address] Calcium [Mass/Vol] 7.3 mg/dL Low 7.6-11.0 [facility] Comment on above: Performed By: #### L 500.9400 #### [facility] [address] [place], [address] Chloride [Moles/Vol] 100 mmol/L Normal 98-108 [facility] Comment on above: Performed By: #### L 500.9400 #### [facility] [address] [place], [address] CO2 [Moles/Vol] 18.0 mmol/L Low 21.0-32.[address] [facility] Comment on above: Performed By: #### L 500.9400 #### [facility] [address] [place], [address] Creatinine [Mass/Vol] 3.17 mg/dL High 0.70-1.20 [facility] Comment on above: Performed By: #### L [id number] #### [facility] [address] [place], [address] ECRCL 19.05 ml/min Low 50-[address] [facility] Comment on above: Performed By: #### L [id number] #### [facility] [address] [place], [address] GAP 15 Normal 5-[address] [facility] Comment on above: Performed By: #### L 500.9400 #### [facility] [address] [place], [address] GFR/1.73 sq M.predicted among non-blacks MDRD (S/P/Bld) [Vol rate/Area] 16 mL/min/{1.73_m2} Low >[address] [facility] Comment on above: Result Comment: mL/m in/1.73m2 CKD-EPI Creatinine Equation (2020) Performed By: #### L 500.9400 #### [facility] [address] [place], [address] Glucose [Mass/Vol] 78 mg/dL Normal 70-99 [facility] Comment on above: Performed By: #### L 500.9400 #### [facility] [address] [place], [address] Potassium [Moles/Vol] 2.9 mmol/L Low 3.3-5.1 [facility] Comment on above: Performed By: #### L 500.9400 #### [facility] [address] [place], [address] Sodium [Moles/Vol] 133 mmol/L Normal 133-145 [facility] Comment on above: Performed By: #### L 500.9400 #### [facility] [address] [place], [address] Urea nitrogen [Mass/Vol] 39 mg/dL High 4-[address] [facility] Comment on above: Performed By: #### L 500.9400 #### [facility] [address] [place], [address] Bedside Glucoseon 11-17-2024 FINGERSTICK GLU 115 mg/dL High 74-[address] [facility] Comment on above: Result Comment: LISA GEMENT OF PATIENT CARE PER NURSING PROTOCOL Performed By: #### L 501.080 ####[facility] [address] [place], [address] FINGERSTICK GLU 156 mg/dL High 74-[address] [facility] Comment on above: Result Comment: LISA GEMENT OF PATIENT CARE PER NURSING PROTOCOL Performed By: #### L 500.9400 #### [facility] [address] [place], [address] FINGERSTICK GLU 78 mg/dL Normal 74-[address] [facility] Comment on above: Result Comment: LISA BECKHAM OF PATIENT CARE PER NURSING PROTOCOL Performed By: #### L 501.080 #### [facility] [address] [place], [address] CBC W/Diff, Automatedon 08-04 09-2024 Absolute Lymph 0.81 X10 3/uL Low 0.83-4.[address] [facility] Comment on above: Performed By: #### L 501.080 #### [facility] [address] [place], [address] Absolute Neut 4.1 X10 3/uL Normal 2.0-7.[address] [facility] Comment on above: Performed By: #### L 501.080 #### [facility] [address] [place], [address] Basophils/100 WBC (Bld) 0.2 % Normal 0-1 [facility] Comment on above: Performed By: #### L 501.080 #### [facility] [address] [place], [address] Eosinophils/100 WBC (Bld) 0.2 % Normal 0-[address] [facility] Comment on above: Performed By: #### L 501.080 #### [facility] [address] [place], [address] Erythrocyte distribution width (RBC) [Ratio] 12.8 % Normal 11.6-14.[address] [facility] Comment on above: Performed By: #### L 501.080 #### [facility] [address] [place], [address] Hematocrit (Bld) [Volume fraction] 24.2 % Low 37-[address] [facility] Comment on above: Performed By: #### L 501.080 #### [facility] [address] [place], [address] Hemoglobin (Bld) [Mass/Vol] 8.3 g/dL Low 12.0-15.[address] [facility] Comment on above: Performed By: #### L 501.080 #### [facility] [address] [place], [address] IG% 0.700 Normal 0.0-0.[address] [facility] Comment on above: Result Comment: IG% - Immature Granulocytes (promyelocytes, myelocytes and metamyelocytes) > 1% indicates that a LEFT SHIFT is Present. Performed By: #### L 501.080 #### [facility] [address] [place], [address] Lymphocytes/100 WBC (Bld) 14.6 % Low 19-[address] [facility] Comment on above: Performed By: #### L 501.080 #### [facility] [address] [place], [address] MCH (RBC) [Entitic mass] 28.0 pg Normal 27.0-32.[address] [facility] Comment on above: Performed By: #### L 501.080 #### [facility] [address] [place], [address] MCHC (RBC) [Mass/Vol] 34.3 g/dL Normal 32-36 [facility] Comment on above: Performed By: #### L 501.080 #### [facility] [address] [place], [address] MCV (RBC) [Entitic vol] 81.8 fL Normal 81-99 [facility] Comment on above: Performed By: #### L 501.080 #### [facility] [address] [place], [address] Monocytes/100 WBC (Bld) 10.6 % High 0-10 [facility] Comment on above: Performed By: #### L 501.080 #### [facility] [address] [place], [address] Neutrophils/100 WBC (Bld) 73.7 % High 47-[address] [facility] Comment on above: Performed By: #### L 501.080 #### [facility] [address] [place], [address] Nucleated RBC (Bld) [#/Vol] 0 10*3/uL Normal 0-[address] [facility] Comment on above: Performed By: #### L 501.080 #### [facility] [address] [place], [address] Platelet mean volume (Bld) [Entitic vol] 11.0 fL Normal 6.2-12.[address] [facility] Comment on above: Performed By: #### L 501.080 #### [facility] [address] [place], [address] Platelets (Bld) [#/Vol] 119 10*3/uL Low 150-[address] [facility] Comment on above: Performed By: #### L 501.080 #### [facility] [address] [place], [address] RBC (Bld) [#/Vol] 2.96 10*6/uL Low 4.2-5.4 [facility] Comment on above: Performed By: #### L 501.080 #### [facility] [address] [place], [address] RDW SD 38.8 fl Normal 35.1-43.[address] [facility] Comment on above: Performed By: #### L 501.080 #### [facility] [address] [place], [address] WBC (Bld) [#/Vol] 5.5 10*3/uL Normal 4.4-11.0 [facility] Comment on above: Performed By: #### L 501.080 #### [facility] [address] [place], [address] Consultation - Nephrologyon 11-17-2024 Consultation - Nephrology [facility] Medical Records Department [address] [place] [address] Consultation - Nephrology 11/17/24 1608 MR#: [id number] Acct: [id number] Name: PAT SORTO Rep #: [id number] : 1960 64 From: Annabel Carter DO PCP: Dr. Jacinta Rivas MD Status:ADM IN [facility] Plan Assessment/Plan (1) Acute kidney injury: PLAN: Creatinine 0.8 in Dec 2023, progressed to 1.09 on 08/04/24, 1.47 eGFR 39cc/min on 09/01/24 to 1.96 on 09/22/24. Creatinine 1.86 eGFR 30cc/min on 10/27/24. She has been on ARB therapy with HCTZ. Doses decreased in office on initial visit 10/28/24. Creatinine 3.1 eGFR 16cc/min on admit. BP low on admit improved with iv hydration. She may have ATN from prolonged hypotension at home prior to admit vs AIN from infection vs multiple antibx therapy for UTI. She received zometa on 11/10 where biphosphonates can cause LAXMI. Aromasin and Everolimus can also increased creatinine level. Discussed with pt possible kidney biopsy if renal fxn does not improve to evaluate for AIN. Hx proteinuria that can be caused by chemotherapy agents, hypokalemia. 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 Check renal US, VINCENZO, ANCA for microscopic hematuria. DW hospitalist, nursing staff, pt and pt spouse. (2) Hypokalemia: PLAN: likely due to HCTZ, poor intake, diarrhea, chemotherapy. Potassium 2.9 phos 2.2 replaced with Kphos (3) Urinary tract infection: PLAN: on ceftriaxone (4) HTN (hypertension): QUALIFIERS: Hypertension type: primary hypertension Qualified Code(s): I10 - Essential (primary) hypertension PLAN: hold BP meds (5) History of chemotherapy: PLAN: both aromasin and everolimus can increase serum creatinine. Consider reducing dose due to rising creatinine. Defer to oncology (6) Type 2 diabetes mellitus with hyperglycemia: PLAN: chemotherapy induced on insulin (7) Breast cancer metastasized to axillary lymph node: QUALIFIERS: Laterality: left Qualified Code(s): C50.912 - Malignant neoplasm of unspecified site of left female breast; C77.3 - Secondary and unspecified malignant neoplasm of axilla and upper limb lymph nodes (8) Iron deficiency anemia: PLAN: would benefit from iv iron therapy hgb 8.3g iron level 12 (9) Hypocalcemia: PLAN: s/p zometa dose on 11/09/24 HPI Consult Data Date of Consult: 11/18/24 HPI Narrative Reason for Consultation: LAXMI on CKD stage 3B HPI Narrative: PAT SORTO, is a 64 F who presents with LAXMI, hypotension improved with iv fluids. Creatinine 1.89 eGFR 30cc/min on 11/08/24. [place] weak, sleepy, blurred vision, poor appetite, nausea, muscle cramps on Saturday11/13/24 after traveling to [place] last Saturday, gave 4 golf lessons in the heat Saturday. She had some chills, diarrhea watery then with mucous since last dose of Mounjaro 1 week ago. Urine output decreased over weekend. She was treated with multiple antibx for Ecoli UTI past month. She was on Losartan and HCTZ along with amlodipine and metoprolol for hypertension. BP low on admit received iv fluids. Denied nausea, vomiting currently, no tremor. She is on Aromasin and Everolimus for breast cancer. She received zometa on 11/09/24 as outpt. Recent PET scan a month ago was stable per pt. She had lymphedema study on 11/10/24 with indocyanine green dye for chronic lymphedema on LUE. Denies chest pain, shortness of breath. She has drug induced diabetes on insulin and mounjaro. [facility] Medical History History of removal of left [...] PO QDAY 03/29/17 05/20/24 H istory tablet vitamin E (dl, acetate) [...] 1,000 mg PO DAILY 10/09/23 Unknown History amlodipine 5 mg tablet 5 (more content not included)... Normal [facility] Creatinine, Urine (random)on 11-17-2024 UR CREAT 85.60 mg/dL Normal 28.00-217. [address] [facility] Comment on above: Performed By: #### L 500.9400 #### [facility] [address] [place], [place], [address] Ferritinon 11-17-2024 Ferritin [Mass/Vol] 520 ng/mL High 22-378 [facility] Comment on above: Performed By: #### L 501.080 #### [facility] [address] [place], [place], [address] Iron measurement (mass/mass) Ordered By: William Minaya on 11-17-2024 Iron (Unsp spec) [Mass/Mass] 12 ug/dL Low 50-[address] [facility] Iron+Iron Binding Capacityon 11-17-2024 TIBC 222 ug/dL Low 250-[address] [facility] Comment on above: Performed By: #### L 503.6550, L503.6030 ####[facility] [address] [place], [address] Kidney and Bladderon 025 Kidney and Bladder [facility] Imaging Services [address] [place] [address] Kidney and Bladder MR#: [id number] Acct: [id number] Name: PAT SORTO Rep #: [id number] : 1960 F 64 From: Judson Painting MD PCP: Dr. Jacinta Rivas MD Status: ADM IN Study: Kidney and Bladder Date of Exam: 11/17/24 Exam# [id number] Ordering Dr: Annabel Carter DO PROCEDURE: KIDNEY AND BLADDER 11/17/2024 REASON FOR EXAM: LAXMI TECHNIQUE: KIDNEY AND BLADDER COMPARISON: Ultrasound abdomen 03/24/2024. FINDINGS: Kidneys: Normal renal sizes, parenchymal thicknesses, and echotextures. Bilateral ureteral jets are not visualized. [place]: No hydronephrosis visualized. Cysts or Masses: No cysts or large solid renal masses. Other: There is hyperechoic structure within right midpole with posterior acoustic shadowing measuring 1.1 x 0.3 x 0.7 cm likely representing nonobstructing renal calculus RIGHT Kidney Size: 10.8 x 4.5 x 4.8 Volume: 122.6 mL Parenchymal Thickness: 19 mm (>14mm is normal) Cortical Thickness (if discernible): 10 (>6mm is normal) LEFT Kidney Size: 10.9 x 5.2 x 4.7 Volume: 140.9 mL Parenchymal Thickness: 16 mm (>14mm is normal) Cortical Thickness (if discernible): 10 (>6mm is normal) Bladder: Bladder is distended with anechoic urine with volume of 19.7 mL and wall thickness of 0.2 cm without any sonographic evidence of any mass. US/Kidney and Bladder IMPRESSION: 1. Nonobstructing right midpole renal calculus measuring 1 cm. 2. No hydronephrosis is visualized in bilateral kidneys. Reading Location: [id number] CC: Dr. Annabel Carter DO; Dr. Jacinta Rivas MD Tape Rules Printing Machine Operator: Signed Normal [facility] Magnesiumon 11-17-2024 Magnesium [Mass/Vol] 1.7 mg/dL Normal 1.5-2.2 [facility] Comment on above: Performed By: #### L 500.9400 #### [facility] [address] [place], [address] Magnesium measurement (mass/ volume)Ordered By: William Minaya on 11-17-2024 Magnesium (Unsp spec) [Mass/Vol] 1.7 mg/dL 1.5-2.[address] [facility] No Panel InformationOrdered By: William Minaya on 11-17-2024 Unsaturated Iron Binding Capacity 210 ug/dL Low 228-[address] [facility] Phosphoruson 11-17-2024 Phosphate [Mass/Vol] 2.2 mg/dL Low 2.7-4.5 [facility] Comment on above: Performed By: #### L 500.9400 #### [facility] [address] [place], [address] Protein+Creatinine Ratio,Uri neon 11-17-2024 PROT:CRE RATIO 709 mg/g CRE High 0-[address] [facility] Comment on above: Performed By: #### L 501.080 #### [facility] [address] [place], [address] UR CREAT 88.30 mg/dL Normal 28.00-217. [address] [facility] Comment on above: Performed By: #### L 501.080 #### [facility] [address] [place], [address] Random urine creatinine ashley urement (mass/volume)Ordered By: Annabel Carter on 11-17-2024 Creatinine Unsp time (U) [Mass/Vol] 88.30 mg/dL 28.00-217. [address] [facility] Serum DNA double strand anti body assay (units/volume)Ordered By: Annabel Carter on 11-17-2024 DNA double strand Ab Qn (S) [facility] Comment on above: Test not performed Serum Scl-70 antibody assay (units/volume)Ordered By: Annabel Carter on 11-17-2024 SCL-70 extractable nuclear Ab Qn (S) [facility] Comment on above: Test not performed Serum classic neutrophil cyt oplasmic antibody assay (units/volume)Ordered By: Annabel Carter on 11-17-2024 Neutrophil cytoplasmic Ab.classic Qn (S) <1:20 titer Neg:<1:[address] [facility] Serum or plasma ferritin ashok surement (mass/volume)Ordered By: William Minaya on 11-17-2024 Ferritin [Mass/Vol] 520 ng/mL High 22-378 [facility] Serum or plasma iron saturat ion measurement (mass fraction)Ordered By: William Minaya on 11-17-2024 Iron saturation [Mass fraction] 5.4 % Low 13-[address] [facility] Comment on above: Previous reported re sult: 6.0 %Edited by: DENNY on 11/17/24:0818 AMENDED REPORT 11/17/24 0818 IRON SATURATION previously reported as: 6.0 L % Serum perinuclear neutrophil cytoplasmic antibody titer by immunofluorescenceOrdered By: Annabel Carter on 11-17-2024 Neutrophil cytoplasmic Ab.perinuclear IF (S) [Titer] <1:20 titer Neg:<1:[address] [facility] Comment on above: The presence of posi tive fluorescence exhibiting P-ANCA orC-ANCA patterns alone is not specific for the diagnosis ofWegener's Granulomatosis (WG) or microscopic polyangiitis.Decisions about treatment should not be based solely onANCA IFA results. The [employer] ANCA Group Consensusrecommends follow up testing of positive sera with both [place]-3 and MPO-ANCA enzyme immunoassays. As many as 5% serumsamples are positive only by EIA. Ref. AM J Clin Ysvozv0550;111:507-513. Stool Occult Blood iFOBon STOB Negative Normal [facility] Comment on above: Performed By: #### M 100.7900 ####[facility] [address] [place], [address] Stool gastrointestinal hemog lobin detection by immunologic methodOrdered By: William Minaya on 11-17-2024 Lower GI hemoglobin IA Ql (Stl) [facility] Urine Cultureon 11-17-2024 URC #2 POSSIBLE PROTEUS SPP. Below infection level. Escherichia coli [place] Count 25,000-50,000 Gram negative jessie Gram negative jessie Escherichia coli: REACTION Ampicillin Islt [place] >=32 R Ampicillin+Sulbac Islt [place] 16 Cefepime Islt [place] <=0.12 S cefTRIAXone Islt [place] 1 S Ciprofloxacin Islt [place] >=4 R B-Lactamase Extended Susc Islt NEG Gentamicin Islt [place] <=1 S levoFLOXacin Islt [place] >=8 R Meropenem Islt [place] <=0.25 S Nitrofurantoin Islt [place] <=16 S Pip+Tazo Islt [place] <=4 S TMP SMX Islt [place] >=320 R Normal [facility] Comment on above: Performed By: #### M 100.2200 ####[facility] [address], [address] Urine Electrolytes- Randomon 11-17-2024 Chloride,URINE 82 mmol/L Normal Not Establ. [facility] Comment on above: Performed By: #### L 500.9400 #### [facility] [address] [place], [address] Sodium (U) [Moles/Vol] 77 mmol/L Normal Not Establ. [facility] Comment on above: Performed By: #### L 500.9400 #### [facility] [address] [place], [address] UR K 25.0 mmol/L Normal Not Establ. [facility] Comment on above: Performed By: #### L 500.9400 #### [facility] [address] [place], [address] Urine potassium measurement (moles/volume)Ordered By: William Minaya on 11-17-2024 Potassium (U) [Moles/Vol] 25.0 mmol/L Not Establ. [facility] Urine protein measurement (m ass/volume)Ordered By: Annabel Carter on 11-17-2024 Protein (U) [Mass/Vol] 62.6 mg/dL High 0.0-12.0 [facility] Comment on above: Performed By: #### L 501.080 #### [facility] [address] [place], [address] Urine protein/creatinine mas s ratioOrdered By: Annabel Carter on 11-17-2024 Protein/Creatinine (U) [Mass ratio] 709 mg/g CRE High 0-[address] [facility] Urine sodium measurement (mo les/volume)Ordered By: William Minaya on 11-17-2024 Sodium (U) [Moles/Vol] 77 mmol/L Not Establ. [facility] Bedside Glucoseon 11-16-2024 FINGERSTICK GLU 108 mg/dL High 74-[address] [facility] Comment on above: Result Comment: LISA GEMENT OF PATIENT CARE PER NURSING PROTOCOL Performed By: #### L 500.9400 #### [facility] [address] [place], [address] FINGERSTICK GLU 96 mg/dL Normal 74-[address] [facility] Comment on above: Result Comment: LISA GEMENT OF PATIENT CARE PER NURSING PROTOCOL Performed By: #### L 501.080 #### [facility] [address] [place], [address] FINGERSTICK GLU 109 mg/dL High 74-[address] [facility] Comment on above: Result Comment: LISA GEMENT OF PATIENT CARE PER NURSING PROTOCOL Performed By: #### L 501.080 #### [facility] [address] [place], [address] FINGERSTICK GLU 133 mg/dL High 74-[address] [facility] Comment on above: Result Comment: LISA GEMENT OF PATIENT CARE PER NURSING PROTOCOL Performed By: #### L 500.9400 #### [facility] [address] [place], [address] FINGERSTICK GLU 66 mg/dL Low 74-[address] [facility] Comment on above: Result Comment: LISA GEMENT OF PATIENT CARE PER NURSING PROTOCOL Performed By: #### L 500.9400 #### [facility] [address] [place], [address] Bilirubin, totalOrdered By: Meri Vu on 11-16-2024 Bilirubin [Mass/Vol] 0.21 mg/dL 0.00-1.30 [facility] CBC W/Diff, Automatedon 11-06 Absolute Lymph 0.72 X10 3/uL Low 0.83-4.[address] [facility] Comment on above: Performed By: #### L 500.4050, L100.0100 #### [facility] [address] [place], [address] Absolute Neut 6.7 X10 3/uL Normal 2.0-7.[address] [facility] Comment on above: Performed By: #### L 500.4050, L100.0100 #### [facility] [address] [place], [address] Basophils/100 WBC (Bld) 0.1 % Normal 0-1 [facility] Comment on above: Performed By: #### L 500.4050, L100.0100 #### [facility] [address] [place], [address] Eosinophils/100 WBC (Bld) 0.0 % Normal 0-[address] [facility] Comment on above: Performed By: #### L 500.4050, L100.0100 #### [facility] [address] [place], [address] Erythrocyte distribution width (RBC) [Ratio] 12.8 % Normal 11.6-14.[address] [facility] Comment on above: Performed By: #### L 500.4050, L100.0100 #### [facility] [address] [place], [address] Hematocrit (Bld) [Volume fraction] 25.5 % Low 37-[address] [facility] Comment on above: Performed By: #### L 500.4050, L100.0100 #### [facility] [address] [place], [address] Hemoglobin (Bld) [Mass/Vol] 8.6 g/dL Low 12.0-15.[address] [facility] Comment on above: Performed By: #### L 500.4050, L100.0100 #### [facility] [address] [place], [address] IG% 0.400 Normal 0.0-0.[address] [facility] Comment on above: Result Comment: IG% - Immature Granulocytes (promyelocytes, myelocytes and metamyelocytes) > 1% indicates that a LEFT SHIFT is Present. Performed By: #### L 500.4050, L100.0100 #### [facility] [address] [place], [address] Lymphocytes/100 WBC (Bld) 9.0 % Low 19-[address] [facility] Comment on above: Performed By: #### L 500.4050, L100.0100 #### [facility] [address] [place], [address] MCH (RBC) [Entitic mass] 27.7 pg Normal 27.0-32.[address] [facility] Comment on above: Performed By: #### L 500.4050, L100.0100 #### [facility] [address] [place], [address] MCHC (RBC) [Mass/Vol] 33.7 g/dL Normal 32-36 [facility] Comment on above: Performed By: #### L 500.4050, L100.0100 #### [facility] [address] [place], [address] MCV (RBC) [Entitic vol] 82.0 fL Normal 81-99 [facility] Comment on above: Performed By: #### L 500.4050, L100.0100 #### [facility] [address] [place], [address] Monocytes/100 WBC (Bld) 6.9 % Normal 0-10 [facility] Comment on above: Performed By: #### L 500.4050, L100.0100 #### [facility] [address] [place], [address] Neutrophils/100 WBC (Bld) 83.6 % High 47-[address] [facility] Comment on above: Performed By: #### L 500.4050, L100.0100 #### [facility] [address] [place], [address] Nucleated RBC (Bld) [#/Vol] 0 10*3/uL Normal 0-[address] [facility] Comment on above: Performed By: #### L 500.4050, L100.0100 #### [facility] [address] [place], [address] Platelet mean volume (Bld) [Entitic vol] 10.9 fL Normal 6.2-12.[address] [facility] Comment on above: Performed By: #### L 500.4050, L100.0100 #### [facility] [address] [place], [address] Platelets (Bld) [#/Vol] 123 10*3/uL Low 150-[address] [facility] Comment on above: Performed By: #### L 500.4050, L100.0100 #### [facility] [address] [place], [address] RBC (Bld) [#/Vol] 3.11 10*6/uL Low 4.2-5.4 [facility] Comment on above: Performed By: #### L 500.4050, L100.0100 #### [facility] [address] [place], [address] RDW SD 38.8 fl Normal 35.1-43.[address] [facility] Comment on above: Performed By: #### L 500.4050, L100.0100 #### [facility] [address] [place], [address] WBC (Bld) [#/Vol] 8.0 10*3/uL Normal 4.4-11.0 [facility] Comment on above: Performed By: #### L 500.4050, L100.0100 #### [facility] [address] [place], [address] Comprehensive Metabolic Prof [facility] 11-16-2024 Albumin [Mass/Vol] 3.1 g/dL Low 3.4-4.8 [facility] Comment on above: Performed By: #### L 500.4050, L100.0100 #### [facility] [address] [place], [address] Albumin/Globulin [Mass ratio] 1.0 {ratio} Normal 0.9-2.[address] [facility] Comment on above: Performed By: #### L 500.4050, L100.0100 #### [facility] [address] [place], [address] ALK PHOS 57 U/L Normal 35-[address] [facility] Comment on above: Performed By: #### L 500.4050, L100.0100 #### [facility] [address] [place], [address] ALT [Catalytic activity/Vol] 25 U/L Normal <=[address] [facility] Comment on above: Performed By: #### L 500.4050, L100.0100 #### [facility] [address] [place], [address] AST [Catalytic activity/Vol] 69 U/L High <=[address] [facility] Comment on above: Performed By: #### L 500.4050, L100.0100 #### [facility] [address] [place], [address] Bilirubin [Mass/Vol] 0.21 mg/dL Normal 0.00-1.30 [facility] Comment on above: Performed By: #### L 500.4050, L100.0100 #### [facility] [address] [place], [address] BUN/CRE 13.3 RATIO Normal 10-[address] [facility] Comment on above: Performed By: #### L 500.4050, L100.0100 #### [facility] [address] [place], [address] Calcium [Mass/Vol] 7.0 mg/dL Low 7.6-11.0 [facility] Comment on above: Performed By: #### L 500.4050, L100.0100 #### [facility] [address] [place], [address] Chloride [Moles/Vol] 101 mmol/L Normal 98-108 [facility] Comment on above: Performed By: #### L 500.4050, L100.0100 #### [facility] [address] [place], [address] CO2 [Moles/Vol] 18.6 mmol/L Low 21.0-32.[address] [facility] Comment on above: Performed By: #### L 500.4050, L100.0100 #### [facility] [address] [place], [address] Creatinine [Mass/Vol] 3.17 mg/dL High 0.70-1.20 [facility] Comment on above: Performed By: #### L 500.4050, L100.0100 #### [facility] [address] [place], [address] ECRCL 18.90 ml/min Low 50-[address] [facility] Comment on above: Performed By: #### L 500.4050, L100.0100 #### [facility] [address] [place], [address] GAP 14 Normal 5-[address] [facility] Comment on above: Performed By: #### L 500.4050, L100.0100 #### [facility] [address] [place], [address] GFR/1.73 sq M.predicted among non-blacks MDRD (S/P/Bld) [Vol rate/Area] 16 mL/min/{1.73_m2} Low >[address] [facility] Comment on above: Result Comment: mL/m in/1.73m2 CKD-EPI Creatinine Equation (2020) Performed By: #### L 500.4050, L100.0100 #### [facility] [address] [place], [address] Globulin (S) [Mass/Vol] 3.0 g/dL Normal 2.2-4.2 [facility] Comment on above: Performed By: #### L 500.4050, L100.0100 #### [facility] [address] [place], [address] Glucose [Mass/Vol] 75 mg/dL Normal 70-99 [facility] Comment on above: Performed By: #### L 500.4050, L100.0100 #### [facility] [address] [place], [address] Potassium [Moles/Vol] 3.0 mmol/L Low 3.3-5.1 [facility] Comment on above: Performed By: #### L 500.4050, L100.0100 #### [facility] [address] [place], [address] Sodium [Moles/Vol] 134 mmol/L Normal 133-145 [facility] Comment on above: Performed By: #### L 500.4050, L100.0100 #### [facility] [address] [place], [address] T PROT 6.1 g/dL Normal 5.9-8.[address] [facility] Comment on above: Performed By: #### L 500.4050, L100.0100 #### [facility] [address] [place], [address] Urea nitrogen [Mass/Vol] 42 mg/dL High 4-[address] [facility] Comment on above: Performed By: #### L 500.4050, L100.0100 #### [facility] [address] [place], [address] Laboratory - Chemistry and C hemistry - challengeOrdered By: Meri Vu on 11-16-2024 AST [Catalytic activity/Vol] 69 U/L High <[address] [facility] Serum globulin measurementOr dered By: Meri Vu on 11-16-2024 Globulin (S) [Mass/Vol] 3.0 g/dL 2.2-4.2 [facility] Serum or plasma alanine burrell otransferase (ALT) measurementOrdered By: Meri Mirella on 11-16-2024 ALT [Catalytic activity/Vol] 25 U/L <[address] [facility] Serum or plasma albumin ashley urement (mass/volume)Ordered By: Meri Vu on 11-16-2024 Albumin [Mass/Vol] 3.1 g/dL Low 3.4-4.8 [facility] Serum or plasma albumin/glob ulin mass ratioOrdered By: Meri Vu on 11-16-2024 Albumin/Globulin [Mass ratio] 1.0 {ratio} 0.9-2.[address] [facility] Serum or plasma alkaline jignesh sphatase measurementOrdered By: Meri Vu on 11-16-2024 ALP [Catalytic activity/Vol] 57 U/L 35-[address] [facility] Total proteinOrdered By: Chet eric Vu on 11-16-2024 Protein [Mass/Vol] 6.1 g/dL 5.9-8.4 [facility] Absolute lymphocyte countOrd ered By: Tyson Doherty on 11-15-2024 Lymphocytes Auto (Unsp spec) [#/Vol] 1.15 10*3/uL 0.83-4.[address] [facility] Absolute neutrophil countOrd ered By: Tyson Doherty on 11-15-2024 Neutrophils (Bld) [#/Vol] 11.1 10*3/uL High 2.0-7.[address] [facility] Anion gap in Serum or Plasma Ordered By: Tyson Doherty on 11-15-2024 Anion gap [Moles/Vol] 14 mmol/L 5-15 [facility] Automated lymphocyte count a s percentage of total leukocytesOrdered By: Tyson Doherty on 11-15-2024 Lymphocytes/100 WBC Auto (Unsp spec) 8.9 % Low 19-[address] [facility] BUN/creatinine ratioOrdered By: Tyson Doherty on 11-15-2024 Urea nitrogen/Creatinine [Mass ratio] 14.1 mg/mg [address] [facility] Basic Metabolic Profile (BMP )on 11-15-2024 BUN/CRE 14.1 RATIO Normal 01-[address] [facility] Comment on above: Performed By: #### L 100.0100, L500.2500 ####[facility] [address] [place], [address] Calcium [Mass/Vol] 7.7 mg/dL Normal 7.6-11.0 [facility] Comment on above: Performed By: #### L 100.0100, L500.2500 ####[facility] [address] [place], [address] Chloride [Moles/Vol] 93 mmol/L Low 98-108 [facility] Comment on above: Performed By: #### L 100.0100, L500.2500 ####[facility] [address] [place], [address] CO2 [Moles/Vol] 22.6 mmol/L Normal 21.0-32.[address] [facility] Comment on above: Performed By: #### L 100.0100, L500.2500 ####[facility] [address] [place], [address] Creatinine [Mass/Vol] 3.18 mg/dL High 0.70-1.20 [facility] Comment on above: Performed By: #### L 100.0100, L500.2500 ####[facility] [address] [place], [address] ECRCL 18.75 ml/min Low 50-[address] [facility] Comment on above: Performed By: #### L 100.0100, L500.2500 ####[facility] [address] [place], [address] GAP 14 Normal 5-[address] [facility] Comment on above: Performed By: #### L 100.0100, L500.2500 ####[facility] [address] [place], [address] GFR/1.73 sq M.predicted among non-blacks MDRD (S/P/Bld) [Vol rate/Area] 16 mL/min/{1.73_m2} Low >[address] [facility] Comment on above: Result Comment: mL/m in/1.73m2 CKD-EPI Creatinine Equation (2020) Performed By: #### L 100.0100, L500.2500 ####[facility] [address] [place], [address] Glucose [Mass/Vol] 123 mg/dL High 70-99 [facility] Comment on above: Performed By: #### L 100.0100, L500.2500 ####[facility] [address] [place], [address] Potassium [Moles/Vol] 2.8 mmol/L Low 3.3-5.1 [facility] Comment on above: Performed By: #### L 100.0100, L500.2500 ####[facility] [address] [place], [address] Sodium [Moles/Vol] 130 mmol/L Low 133-145 [facility] Comment on above: Performed By: #### L 100.0100, L500.2500 ####[facility] [address] [place], [address] Urea nitrogen [Mass/Vol] 45 mg/dL High 4-[address] [facility] Comment on above: Performed By: #### L 100.0100, L500.2500 ####[facility] [address] [place], [address] Basophil percentageOrdered B y: Tyson Doherty on 11-15-2024 Basophils/100 WBC (Bld) 0.1 % 0-1 [facility] Bilirubin Test strip Ql (U)O rdered By: Tyson Doherty on 11-15-2024 Bilirubin Ql (U) Negative Negative [facility] Blood cultureOrdered By: Debi Doherty on 11-15-2024 Bacteria identified Cx Nom (Bld) No growth in [address] [facility] CBC W/Diff, Automatedon 11-06 Absolute Lymph 1.15 X10 3/uL Normal 0.83-4.[address] [facility] Comment on above: Performed By: #### L 100.0100, L500.2500 #### [facility] [address] [place], [address] Absolute Neut 11.1 X10 3/uL High 2.0-7.[address] [facility] Comment on above: Performed By: #### L 100.0100, L500.2500 #### [facility] [address] [place], [address] Basophils/100 WBC (Bld) 0.1 % Normal 0-1 [facility] Comment on above: Performed By: #### L 100.0100, L500.2500 #### [facility] [address] [place], [address] Eosinophils/100 WBC (Bld) 0.0 % Normal 0-[address] [facility] Comment on above: Performed By: #### L 100.0100, L500.2500 #### [facility] [address] [place], [address] Erythrocyte distribution width (RBC) [Ratio] 13.0 % Normal 11.6-14.[address] [facility] Comment on above: Performed By: #### L 100.0100, L500.2500 #### [facility] [address] [place], [address] Hematocrit (Bld) [Volume fraction] 26.9 % Low 37-[address] [facility] Comment on above: Performed By: #### L 100.0100, L500.2500 #### [facility] [address] [place], [address] Hemoglobin (Bld) [Mass/Vol] 9.2 g/dL Low 12.0-15.[address] [facility] Comment on above: Performed By: #### L 100.0100, L500.2500 #### [facility] [address] [place], [address] IG% 0.300 Normal 0.0-0.[address] [facility] Comment on above: Result Comment: IG% - Immature Granulocytes (promyelocytes, myelocytes and metamyelocytes) > 1% indicates that a LEFT SHIFT is Present. Performed By: #### L 100.0100, L500.2500 #### [facility] [address] [place], [address] Lymphocytes/100 WBC (Bld) 8.9 % Low 19-[address] [facility] Comment on above: Performed By: #### L 100.0100, L500.2500 #### [facility] [address] [place], [address] MCH (RBC) [Entitic mass] 28.0 pg Normal 27.0-32.[address] [facility] Comment on above: Performed By: #### L 100.0100, L500.2500 #### [facility] [address] [place], [address] MCHC (RBC) [Mass/Vol] 34.2 g/dL Normal 32-36 [facility] Comment on above: Performed By: #### L 100.0100, L500.2500 #### [facility] [address] [place], [address] MCV (RBC) [Entitic vol] 82.0 fL Normal 81-99 [facility] Comment on above: Performed By: #### L 100.0100, L500.2500 #### [facility] [address] [place], [address] Monocytes/100 WBC (Bld) 4.2 % Normal 0-10 [facility] Comment on above: Performed By: #### L 100.0100, L500.2500 #### [facility] [address] [place], [address] Neutrophils/100 WBC (Bld) 86.5 % High 47-[address] [facility] Comment on above: Performed By: #### L 100.0100, L500.2500 #### [facility] [address] [place], [address] Nucleated RBC (Bld) [#/Vol] 0 10*3/uL Normal 0-[address] [facility] Comment on above: Performed By: #### L 100.0100, L500.2500 #### [facility] [address] [place], [address] Platelet mean volume (Bld) [Entitic vol] 10.0 fL Normal 6.2-12.[address] [facility] Comment on above: Performed By: #### L 100.0100, L500.2500 #### [facility] [address] [place], [address] Platelets (Bld) [#/Vol] 135 10*3/uL Low 150-[address] [facility] Comment on above: Performed By: #### L 100.0100, L500.2500 #### [facility] [address] [place], [address] RBC (Bld) [#/Vol] 3.28 10*6/uL Low 4.2-5.4 [facility] Comment on above: Performed By: #### L 100.0100, L500.2500 #### [facility] [address] [place], [address] RDW SD 39.1 fl Normal 35.1-43.[address] [facility] Comment on above: Performed By: #### L 100.0100, L500.2500 #### [facility] [address] [place], [address] WBC (Bld) [#/Vol] 12.9 10*3/uL High 4.4-11.0 [facility] Comment on above: Performed By: #### L 100.0100, L500.2500 #### [facility] [address] [place], [address] Carbon dioxide, total [Moles /volume] in Central venous bloodOrdered By: Tyson Doherty on 11-15-2024 CO2 [Moles/Vol] 22.6 mmol/L 21.0-32.[address] [facility] Chloride assayOrdered By: Giovanny Doherty on 11-15-2024 Chloride [Moles/Vol] 93 mmol/L Low 98-108 [facility] Emergency Department Summary on 11-15-2024 Emergency Department Summary [facility] Medical Records Department [address] [place] [address] Emergency Department Summary 11/15/24 MR#: [id number] Acct: [id number] Name: PAT SORTO Rep #: [id number] : 1960 64 From: Tyson Doherty DO PCP: Dr. Jacinta Rivas MD Status:ADM IN Location: MS3 CA087-0 HPI History of Present Illness Chief Complaint: General Illness Informant: patient Onset/Context/Timing Onset: Days (3) Context: Gradual Onset Timing: Continuous Quality: Weakness Location: Generalized Worsened by: Nothing Relieved by: Nothing Narrative Narrative: Patient presents with diarrhea and weakness that has been getting worse over the past 3 days. Patient states she feels weak all over. Patient states it is gradually getting worse. Patient admits to decreased appetite. Patient states nothing makes her symptoms worse and nothing makes them better. Patient admits to some subjective fevers and chills. Patient also admits to some sweats. Patient admits to some decreased urine output but denies any dysuria or hematuria. [facility] Medical History History of removal of left [...] PO QDAY 03/29/17 05/20/24 H istory tablet vitamin E (dl, acetate) [...] 1,000 mg PO DAILY 10/09/23 Unknown History amlodipine 5 mg tablet 5 mg PO QDAY #90 tabs 07/02/24 Unk nown Rx insulin glargine 100 unit/mL (3 20 unit subcut QAM 07/02/24 Unknow n History mL) subcutaneous pen (Lantus Solostar U-100 Insulin) metoprolol succinate 25 mg 25 mg PO QDAY 07/02/24 Unknown His tory tablet,extended release 24 hr ursodiol 500 mg tablet (LEENA Forte) 1,250 mg PO QDAY 07/02/24 Unkno wn History hydrochlorothiazide 12.5 mg tablet 12.5 mg PO QDAY 11/02/24 Unknown History losartan 25 mg tablet 50 mg PO DAILY 11/15/24 Unknown Hi story tirzepatide 2.5 mg/0.5 mL 2.5 mg subcut QWEEK 11/15/24 Unkno wn History subcutaneous pen injector (Mounjaro) trazodone 50 mg tablet 50 mg PO QHS 11/15/24 Unknown Hist ory Allergy/AdvReac Type Severity Reaction Status Date / Time No Known Allergies Allergy Verified 11/02/24 11:11 Family History Mother Diabetes Heart disease Hypertension CVA (cerebral vascular accident) Father Diabetes Hypertension Surgical History Hx of total mastectomy of left breast S/P breast biopsy S/P total knee replacement History of section Social History household members: spouse Smoking Status: Never smoker alcohol intake: current alcohol intake frequency: 0-2 drinks per day substance use type: does not use ROS ROS ED Constitutional Constitutional ED: Reports chills, fever(s), subjective and sweats Eyes Eyes: Reports blurry vision; Denies diplopia ENT ENT ED: Denies rhinorrhea or sore throat Cardiovascular Cardiovascular: Denies chest pain or palpitations Respiratory/Chest Respiratory/Chest: Denies cough or dyspnea Gastrointestinal Gastrointestinal: Reports diarrhea; Denies abdominal pain, nausea or vomiting Genitourinary Genitourinary ED: Denies dysuria or hematuria Musculoskeletal Musculoskeletal: Denies back pain or neck pain Integumentary Denies abscess or rash Neurologic Neurologic: Denies headache(s) or weakness Allergic/Immunologic Allergic/Immunologic ED: Denies mouth swelling or urticaria EXAM Physical Exam Const Vital Signs: 11/15/24 17:38 11/15/24 17:38 11/15/24 19:38 Temper (more content not included)... Normal [facility] Eosinophil percentageOrdered By: Tyson Doherty on 11-15-2024 Eosinophils/100 WBC (Bld) 0.0 % 0-[address] [facility] Erythrocyte distribution wid th ratioOrdered By: Tyson Doherty on 11-15-2024 Erythrocyte distribution width (RBC) [Ratio] 13.0 % 11.6-14.[address] [facility] Erythrocyte distribution wid th standard deviationOrdered By: Tyson Doherty on 11-15-2024 Erythrocyte distribution width (RBC) [Ratio] 39.1 fl 35.1-43.[address] [facility] Glomerular filtration rate ( GFR) estimation/1.73 sq m using serum, plasma, or whole bOrdered By: Tyson Doherty on 11-15-2024 GFR/1.73 sq M.predicted among non-blacks MDRD (S/P/Bld) [Vol rate/Area] 16 mL/min/{1.73_m2} Low >[address] [facility] Comment on above: mL/min/1.73m2 CKD-EP I Creatinine Equation (2020) H AND P Exam - Hospitaliston 11-15-2024 H&P Exam - Hospitalist [facility] Medical Records Department [address] [place] [address] H P Exam - Hospitalist 11/15/24 0069 MR#: [id number] Acct: [id number] Name: PAT SORTO Rep #: [id number] : 1960 64 From: Meri Vu MD PCP: Dr. Jacinta Rivas MD Status:ADM IN Location: [facility] [id number] HPI - General General Date of Admission: 11/15/24 Date of Service: 11/15/24 Chief Complaint: Decreased oral intake, decreased UOP, diarrhea. HPI Narrative The patient is a 64 y/o F w/ PMHx: CKD stage II per GFR trending, Chronic anemia, Overweight, GERD, Diabetes mellitus type II, HTN, HLD, Hx L breast CA unclear specific type s/p L total breast mastectomy considered in remission, Primary biliary cirrhosis who presents to the [facility] ED on 11/15/2024 with significant fatigue, malaise, increasing weakness as well as loose stools over the last 3 days with decreased oral intake with subjective fevers and chills and diaphoresis with decreased urine output prompting eventual ED evaluation. She does report that she had urinary intact infection approximate 1 month prior specifically E. coli and at that time was treated with Augmentin as far as recent antibiotic therapies but none since. Workup in the ED included T97.8, heart rate 92, BP 103/67, respiratory 18, 99% on room air, notable orthostatic vital signs although slightly atypical with laying 95/59, sitting 121/61, standing 93/52 with no heart rate alteration, most recent repeat vitals of heart rate 99, BP 101/55, respiratory rate 16, 97% on room air, CBC with WC 12.9, hemoglobin 9.2, MCV 82, platelet 135 with left shift, BMP with sodium 130, potassium 2.8, chloride 93, BUN/canaille 45/3.18, GFR 16, glucose 123, urinalysis noted to be cloudy, protein 100, occult blood 250, nitrate negative, leukocyte esterase 500 with urine WBCs greater than 100 with 2+ bacteria with urine culture pending per ED, rapid SARS COVID/)/RSV PCR negative. In the ED patient ministered 1 L normal saline, potassium 40 mill equivalent p.o. x 1, IV Rocephin 1 g x 1. [facility] Medical History History of removal of left [...] PO QDAY 03/29/17 05/20/24 H istory tablet vitamin E (dl, acetate) [...] 1,000 mg PO DAILY 10/09/23 Unknown History amlodipine 5 mg tablet 5 mg PO QDAY #90 tabs 07/02/24 Unk nown Rx insulin glargine 100 unit/mL (3 20 unit subcut QAM 07/02/24 Unknow n History mL) subcutaneous pen (Lantus Solostar U-100 Insulin) metoprolol succinate 25 mg 25 mg PO QDAY 07/02/24 Unknown His tory tablet,extended release 24 hr ursodiol 500 mg tablet (LEENA Forte) 1,250 mg PO QDAY 07/02/24 Unkno wn History hydrochlorothiazide 12.5 mg tablet 12.5 mg PO QDAY 11/02/24 Unknown History losartan 25 mg tablet 50 mg PO DAILY 11/15/24 Unknown Hi story tirzepatide 2.5 mg/0.5 mL 2.5 mg subcut QWEEK 11/15/24 Unkno wn History subcutaneous pen injector (Mounjaro) trazodone 50 mg tablet 50 mg PO QHS 11/15/24 Unknown Hist ory Allergy/AdvReac Type Severity Reaction Status Date / Time No Known Allergies Allergy Verified 11/02/24 11:11 Family History Mother Diabetes Heart disease Hypertension CVA (cerebral vascular accident) Father Diabetes Hypertension Surgical History Hx of total mastectomy of left breast S/P breast biopsy S/P total knee replacement History of section Social History household members: spouse Smoking Stat (more content not included)... Normal [facility] Hematocrit Auto (Bld) [Volum e fraction]Ordered By: Tyson Doherty on 11-15-2024 Hematocrit (Bld) [Volume fraction] 26.9 % Low 37-[address] [facility] Hemoglobin measurementOrdere d By: Tyson Doherty on 11-15-2024 Hemoglobin (Bld) [Mass/Vol] 9.2 g/dL Low 12.0-15.[address] [facility] Immature granulocytes/100 WB C Auto (Bld)Ordered By: Tyson Doherty on 11-15-2024 Immature granulocytes/100 WBC (Bld) 0.300 % 0.0-0.[address] [facility] Comment on above: IG% - Immature Granu locytes (promyelocytes, myelocytes and metamyelocytes) > 1% indicates that a LEFT SHIFT is Present. Influenza virus A and B and SARS-CoV-2 (COVID-19) and Respiratory syncytial virus RNAOrdered By: Tyson Doherty on 11-15-2024 SARS-CoV-2 (COVID-19) RNA EMILIA+probe Ql (Unsp spec) [facility] Ketones Test strip Ql (U)Ord ered By: Tyson Doherty on 11-15-2024 Ketones Ql (U) Negative Negative [facility] M100.678on 11-15-2024 M100.678 SARS-CoV-2 (COVID 19 ) Negative INFLUENZA A Negative INFLUENZA B Negative RSV PCR Negative Normal [facility] Comment on above: Performed By: #### L 501.080 #### [facility] [address] [place], [address] MCV (mean corpuscular volume ) determinationOrdered By: Tyson Doherty on 11-15-2024 MCV (RBC) [Entitic vol] 82.0 fL 81-99 [facility] Magnesiumon 11-15-2024 Magnesium [Mass/Vol] 1.5 mg/dL Normal 1.5-2.2 [facility] Comment on above: Order Comment: Comme nts: May add to ED labs Comments: may add to ED labs Performed By: #### L 501.2300, L501.5200 #### [facility] [address] [facility] [place], [place], [address] Mean corpuscular hemoglobin (MCH) determinationOrdered By: Tyson Doherty on 11-15-2024 MCH (RBC) [Entitic mass] 28.0 pg 27.0-32.[address] [facility] Mean corpuscular hemoglobin concentration (MCHC) determinationOrdered By: Tyson Doherty on 11-15-2024 MCHC (RBC) [Mass/Vol] 34.2 g/dL 32-36 [facility] Mean platelet volume determi nationOrdered By: Tyson Doherty on 11-15-2024 Platelet mean volume (Bld) [Entitic vol] 10.0 fL 6.2-12.[address] [facility] Microscopic analysis of urin e for red blood cells (RBC)Ordered By: Tyson Doherty on 11-15-2024 Microscopic analysis of urine for red blood cells (RBC) 0-5 SEEN /hpf 0-[address] [facility] Monocyte percentageOrdered B y: Tyson Doherty on 11-15-2024 Monocytes/100 WBC (Bld) 4.2 % 0-10 [facility] Mucus LM Ql (Urine sed)Order ed By: Tyson Doherty on 11-15-2024 Mucus Ql (Urine sed) 0 SEEN /hpf [facility] Neutrophil percentageOrdered By: Tyson Doherty on 11-15-2024 Neutrophils/100 WBC (Bld) 86.5 % High 47-[address] [facility] Nitrite Test strip Ql (U)Ord ered By: Tyson Doherty on 11-15-2024 Nitrite Ql (U) Negative Negative [facility] Nucleated red blood cell per centageOrdered By: Tyson Doherty on 11-15-2024 Nucleated RBC/100 WBC (Bld) [Ratio] 0 % 0-[address] [facility] Phosphoruson 11-15-2024 Phosphate [Mass/Vol] 2.7 mg/dL Normal 2.7-4.5 [facility] Comment on above: Order Comment: Comme nts: May add to ED labs Comments: may add to ED labs Performed By: #### L 501.2300, L501.5200 #### [facility] [address], [place], [id number] Platelet countOrdered By: Giovanny Doherty on 11-15-2024 Platelets (Bld) [#/Vol] 135 10*3/uL Low 150-[address] [facility] Potassium measurement (mass/ volume)Ordered By: Tyson Doherty on 11-15-2024 Potassium (Unsp spec) [Mass/Vol] 2.8 mmol/L Low 3.3-5.[address] [facility] Protein Test strip Ql (U)Ord ered By: Tyson Doherty on 11-15-2024 Protein Ql (U) 100 mg/dl High Negative [facility] RBC Auto (Bld) [#/Vol]Ordere d By: Tyson Doherty on 11-15-2024 RBC (Bld) [#/Vol] 3.28 10*6/uL Low 4.2-5.4 [facility] Serum creatinine measurement (mass/volume)Ordered By: Tyson Doherty on 11-15-2024 Creatinine [Mass/Vol] 3.18 mg/dL High 0.70-1.20 [facility] Serum glucose measurement (m ass/volume)Ordered By: Tyson Doherty on 11-15-2024 Glucose [Mass/Vol] 123 mg/dL High 70-99 [facility] Serum or plasma calcium ashley urement (mass/volume)Ordered By: Tyson Doherty on 11-15-2024 Calcium [Mass/Vol] 7.7 mg/dL 7.6-11.0 [facility] Serum or plasma urea nitroge n measurement (mass/volume)Ordered By: Tyson Doherty on 11-15-2024 Urea nitrogen [Mass/Vol] 45 mg/dL High 4-[address] [facility] Sodium levelOrdered By: Tyson Doherty on 11-15-2024 Sodium [Moles/Vol] 130 mmol/L Low 133-145 [facility] Squamous epithelial cells de tection in urine sediment by light microscopyOrdered By: Tyson Doherty on 11-15-2024 Epithelial cells.squamous LM Ql (Urine sed) 0 SEEN /hpf 5-[address] [facility] Transitional cells detection in urine sediment by light microscopyOrdered By: Tyson Doherty on 11-15-2024 Transitional cells LM Ql (Urine sed) 0-5 SEEN /hpf 0-[address] [facility] Urinalysis, Completeon 11-15 EPI,RENAL 0-5 SEEN Normal 0-[address] [facility] Comment on above: Order Comment: CLEAN CATCH Performed By: #### L 501.080 #### [facility] [address] [place], [place], [id number] EPI,TRANSITION 0-5 SEEN Normal 0-[address] [facility] Comment on above: Order Comment: CLEAN CATCH Performed By: #### L 501.080 #### [facility] [address] [place], [address] BACTERIA 2+ /hpf Normal None Seen [facility] Comment on above: Order Comment: CLEAN CATCH Performed By: #### L 501.080 #### [facility] [address] [place], [address] RBC 0-5 SEEN Normal 0-[address] [facility] Comment on above: Order Comment: CLEAN CATCH Performed By: #### L 501.080 #### [facility] [address] [place], [address] WBC >100 SEEN Normal 0-[address] [facility] Comment on above: Order Comment: CLEAN CATCH Performed By: #### L 501.080 #### [facility] [address] [place], [place], [id number] EPI,SQUAMOUS 0 SEEN Normal 5-[address] [facility] Comment on above: Order Comment: CLEAN CATCH Performed By: #### L 501.080 #### [facility] [address] [place], [place], [id number] Mucus Ql (Urine sed) 0 SEEN Normal [facility] Comment on above: Order Comment: CLEAN CATCH Performed By: #### L 501.080 #### [facility] [address] [place], [place], [id number] Urine clarityOrdered By: Debi Doherty on 11-15-2024 Clarity (U) Sl. Cloudy Clear [facility] Urine color determinationOrd ered By: Tyson Doherty on 11-15-2024 Color (U) Yellow Yellow [facility] Urine cultureOrdered By: Debi Doherty on 11-15-2024 Bacteria identified Cx Nom (U) Escherichia coli Abnormal [facility] Bacteria identified Cx Nom (U) Negative Abnormal [facility] Urine glucose detectionOrder ed By: Tyson Doherty on 11-15-2024 Glucose Ql (U) Normal mg/dl Normal [facility] Urine leukocyte esterase det ection by dipstickOrdered By: Tyson Doherty on 11-15-2024 Leukocyte esterase Test strip Ql (U) 500 /ul High Negative [facility] Urine pHOrdered By: Tyson tanner on 11-15-2024 pH (U) 5.0 [pH] 5.0 - 8.[address] [facility] Urine sediment bacteria coun t by microscopy (number/high power field)Ordered By: Tyson Doherty on 11-15-2024 Bacteria LM.HPF (Urine sed) [#/Area] 2 /[HPF] None Seen [facility] Urine sediment renal epithel ial cell count by microscopy (number/high power field)Ordered By: Tyson Doherty on 11-15-2024 Epithelial cells.renal LM.HPF (Urine sed) [#/Area] 0 /[HPF] 0-[address] [facility] Urine specific gravity measu rementOrdered By: yTson Doherty on 11-15-2024 Specific gravity (U) [Rel density] 1.010 1.002-1.[address] [facility] Urine urobilinogen measureme ntOrdered By: Tyson Doherty on 11-15-2024 Urobilinogen Ql (U) Normal mg/dl Normal [facility] White blood cell (WBC) count Ordered By: Tyson Doherty on 11-15-2024 WBC (Bld) [#/Vol] 12.9 10*3/uL High 4.4-11.0 [facility] White blood cell countOrdere d By: Tyson Doherty on 11-15-2024 White blood cell count >100 SEEN /hpf 0-[address] [facility] CNTHERAPYon 11-09-2024 CNTHERAPY OT/PT/Speech Visit (PNORCA) PAT SORTO ([id number]) 1960 F UPA Date Time Provider Department 11/09/24 2:15 PM MILAGROS BROWN [facility] Date Time Provider Department Center 11/09/2024 2:15 PM [id number], CAROL A [facility] N Reason for Visit: PT Progress Note [1596] Primary Visit Diagnosis:Lymphedema of left arm [I89.0] Allergies As of Date: 11/09/2024 Noted Allergy Reaction AMOXICILLIN 11/15/2022 2 - Rash Comments: rash arms trunk neck face, itching Chills Tolerates Ancef Date Reviewed: 11/09/2024 Reviewed by: Karyn Kirk RN - Fully Assessed Prescriptions as of 11/12/2024 [...] by mouth at bedtime as needed. - Solar Pool TechnologiesTOUCH ULTRA PLUS TEST strp 1 Each two [...] Take 1 tablet by mouth once daily. [facility] CNTHERAPYon 11-06-2024 CNTHERAPY OT/PT/Speech Visit (PNORCA) PAT SORTO ([id number]) 1960 F UPA Date Time Provider Department 11/06/24 9:45 AM NOE JACKSON [facility] Date Time Provider Department Center 11/06/2024 9:45 AM [id number], MIRANDA [facility] N Reason for Visit: Physical [...] Take 1 tablet by mouth once daily. [facility] CNTHERAPYon 11-04-2024 CNTHERAPY OT/PT/Speech Visit (PNORCA) PAT SORTO ([id number]) 1960 F UPA Date Time Provider Department 11/04/24 10:30 AM [facility] Date Time Provider Department Center 11/04/2024 10:30 AM [id number], MIRANDA [facility] N Reason for Visit: [...] by mouth at bedtime as needed. - Whisk (formerly Zypsee) ULTRA PLUS TEST strp 1 Each two [...] 1 tablet by mouth once daily. Normal [facility] Cardiology Visit Reporton Cardiology Visit Report [facility] [address] [place] [address] OFFICE VISIT Date of Service: 11/02/24 MR#: [id number] Acct: [id number] Name: PAT SORTO Rep #: [id number] : 1960 Provider: RUSSELL Lr Age/Sex: 64/F Location: [facility] Status: Signed HPI HPI History of [...] room air Intake Visit Reasons: 4 M FU Branch Officer Required: No Accompanied by: Self Is patient [...] vomiting o (more content not included)... Normal [facility] CNTHERAPYon 10-30-2024 CNTHERAPY OT/PT/Speech Visit (PNORCA) PAT SORTO ([id number]) 1960 F U[place] Date Time Provider Department 10/30/24 3:00 PM NOE JACKSON Date Time Provider Department Center 10/30/2024 3:00 PM [id number] JACKSON [facility] N Reason for Visit: Physical [...] by mouth at bedtime as needed. - mycujooUCH ULTRA PLUS TEST strp 1 Each two [...] Take 1 tablet by mouth once daily. [facility] CNTHERAPYon 10-28-2024 CNTHERAPY OT/PT/Speech Visit (PNORCA) PAT SORTO ([id number]) 1960 F U[facility] Date Time Provider Department 10/28/24 3:45 PM [facility] Date Time Provider Department Center 10/28/2024 3:45 PM [id number], MIRANDA [facility] N Reason for Visit: Physical Therapy [503] Primary Visit Diagnosis:Lymphedema of left arm [I89.0] Allergies As of Date: 10/28/2024 Noted Allergy Reaction AMOXICILLIN 11/15/2022 2 - Rash Comments: rash arms trunk neck face, itching Chills Tolerates Ancef Date Reviewed: 10/26/2024 Reviewed by: Lisbet Pizano APRN.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 - Fully Assessed Prescriptions as of 10/28/2024 [...] by mouth at bedtime as needed. - mycujooUCH ULTRA PLUS TEST strp 1 Each two [...] 1 tablet by mouth once daily. Normal [facility] GLUCOSE, BLOOD (POC)on 10-26 Glucose [Mass/Vol] 115 mg/dL Abnormal 74 - 99 mg/dL [facility] Comment on above: Location:[facility] [place], [place], [address] The Accu-Chek Inform II glucose meter has [...] Interpretation and review of laboratory results Abnormal [facility] PET/CT SKULL-THIGH SUBQon 10-26-2024 NM PET/CT SKULL-THIGH [...] * Uptake Time: 58 minutes * Radiopharmaceutical: X68-Ifrqvhxevqnaxbrdjb (FDG) COMPARISON: PET/CT 06/30/2024 RESULT: REFERENCES: FDG [...] PET scan Metastases: No metabolically active metastases. Tape Rules Printing Machine Operator[facility] Transcribe Date/Time: Oct 26 2024 4:06P Dictated by : ALONDRA MCCAIN MD This examination was interpreted and the report reviewed and electronically signed by: ALONDRA MCCAIN MD on Oct 26 2024 10:51PM EST [id number] Normal [facility] PET+CT Guidance for localiza tion of tumor [...] * Uptake Time: 58 minutes * Radiopharmaceutical: C32-Dvtbiqzqdsqotzcdcd (FDG) COMPARISON: PET/CT 06/30/2024 RESULT: REFERENCES: FDG [...] PET scan Metastases: No metabolically active metastases. Tape Rules Printing Machine Operator: MARTÍNEZ Transcribe Date/Time: Oct 26 2024 4:06P Dictated by : ALONDRA MCCAIN MD This examination was interpreted and the report reviewed and electronically signed by: ALONDRA MCCAIN MD on Oct 26 2024 10:51PM [facility] Provider, [facility] - 10/26/2024 * * *Final Report* * [...] * Uptake Time: 58 minutes * Radiopharmaceutical: H38-Dzciebnxgkomjpxltp (FDG) COMPARISON: PET/CT 06/30/2024 RESULT: REFERENCES: FDG [...] PET scan Metastases: No metabolically active metastases. 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 CLARITY UA (POCT) Slightly Cloudy Cl [facility] COLOR UA (POCT) Yellow [facility] GLUCOSE UA (POCT) 500 mg/dL Abnormal Negative [facility] Hemoglobin Ql (U) Large Abnormal Negative [facility] Interpretation and review of laboratory results Abnormal [facility] KETONE UA (POCT) Negative Negative mg/dL [facility] LEUKOCYTES UA (POCT) Small Abnormal Negative [facility] NITRITE UA (POCT) Negative Negative [facility] PH UA (POCT) 5.5 4.5 - 8.0 [facility] Protein Ql (U) 30 mg/dL Abnormal Negative [facility] SPECIFIC GRAVITY UA (POCT) 1.02 1.005 - 1.030 [facility] UROBILINOGEN UA (POCT) 0.2 Noemy l E.U./dL [facility] Location:[facility], [address] [place] [address], [place], [place], [address] [place] [address] POINT OF CARE [facility] CNTHERAPYon 10-22-2024 CNTHERAPY OT/PT/Speech Visit (PNORCA) PAT SORTO ([id number]) 1960 F [place] Date Time Provider Department 10/22/24 2:15 PM NOE JACKSON Date Time Provider Department Center 10/22/2024 2:15 PM [id number], MIRANDA [facility] N Reason for Visit: Physical Therapy [503] [...] by mouth at bedtime as needed. - Solar Pool TechnologiesTOUCH ULTRA PLUS TEST strp 1 Each two [...] Take 1 tablet by mouth once daily. [facility] CNTHERAPYon 10-21-2024 CNTHERAPY OT/PT/Speech Visit (PNORCA) PAT SORTO ([id number]) 1960 F [place] Date Time Provider Department 10/21/24 3:45 PM NOE JACKSON [facility] Date Time Provider Department Center 10/21/2024 3:45 PM [id number] [facility] N Reason for Visit: Physical [...] - DROPLET PEN NEEDLE 31 gauge x 06/21 1 each two times a day. - [...] by mouth at bedtime as needed. - Whisk (formerly Zypsee) ULTRA PLUS TEST strp 1 Each two [...] Take 1 tablet by mouth once daily. [facility] CNTHERAPYon 10-15-2024 CNTHERAPY OT/PT/Speech Visit (PNORCA) PAT SORTO ([id number]) 1960 F [place] Date Time Provider Department 10/15/24 10:30 AM NOE JACKSON PNORCA Date Time Provider Department Center 10/15/2024 10:30 AM [id number], MIRANDA [facility] N Reason for Visit: Physical [...] by mouth at bedtime as needed. - Solar Pool TechnologiesTOUCH ULTRA PLUS TEST strp 1 Each two [...] Take 1 tablet by mouth once daily. [facility] CNTHERAPYon 10-13-2024 CNTHERAPY OT/PT/Speech Visit (PNORCA) PAT SORTO ([id number]) 1960 F [facility] Date Time Provider Department 10/13/24 9:45 AM NOE JACKSON [facility] Date Time Provider Department Center 10/13/2024 9:45 AM [id number], MIRANDA [facility] N Reason for Visit: Physical Therapy [503] Primary Visit Diagnosis:Lymphedema of left arm [I89.0] Allergies As of Date: 10/13/2024 Noted Allergy Reaction AMOXICILLIN 11/15/2022 2 - Rash Comments: rash arms trunk neck face, itching Chills Tolerates Ancef Date Reviewed: 10/07/2024 Reviewed by: Tatianna Crook [facility] - Fully Assessed Prescriptions as of 10/13/2024 [...] by mouth at bedtime as needed. - Solar Pool TechnologiesTOUCH ULTRA PLUS TEST strp 1 Each two [...] Take 1 tablet by mouth once daily. Bag Bundler: Addendum Therapy (PT/OT/Speech/Resp) ID: [id number] 10/13/2024 10:26 AM Author: NOE JACKSON Signed by NOE JACKSON [employer]RIVER CARPENTER on 10/13/2024 at 10:26 AM * * * This document replaces document [id number] * * * Document text: Program_ID:[id number] Access Code: [email or web address] URL: [email or web address] Date: 10-13-2024 Prepared By: Bobbi Vanegas Program [...] weekly - 1 sets - 3 reps [facility] THERAPY NTon 10-13-2024 THERAPY NT HNO ID: [id number] Author: NOE JACKSON PTA Service: ? Author Type: Supervisor Transferring [employer] Boxing Type: Therapy (PT/OT/Speech/Resp) Filed: 10/13/2024 10:26 Note Text: Program_ID:[id number] Access Code: [email or web address] URL: [email or web address] Date: 10-13-2024 Prepared By: Bobbi Vanegas Program [...] weekly - 1 sets - 3 reps [facility] [id number] 10-12-2024 [id number] HNO ID: [id number] Author: MILAGROS BROWN PT Service: ? Author Type: Physical Therapist Type: [id number] Filed: 10/12/2024 07:20 Note Text: [facility] Therapy Physical Therapy Plan of Care Certification Patient Name: Pat Sorto : 1960 [facility] #: [id number] Date: 10/07/2024 To: Micki Butler APRN.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 From Therapist: Milagros Brown PT RE: Patient [...] Patient to be seen for Therapeutic exercise (21164), Manual therapy (55226), Self-halfway management (00144), Patient/Family/Caregive r Education, Therapeutic activities (18247) (lymphedema program) PLAN FOR NEXT VISIT: lymphedema program For further details regarding this patient refer to the Physical Therapy electronically documented visit dated 10/07/2024. Provider Attestation I have reviewed the treatment plan for Pat Goldstein Macario, [facility]# [id number] for the period of 10/07/24 -- 12/07/24, established on 10/07/2024. Signature certifies the need for therapy services. [facility] CNTHERAPYon 10-07-2024 CNTHERAPY OT/PT/Speech Visit (PNORCA) PAT SORTO ([id number]) 1960 F U[place] Date Time Provider Department 10/07/24 10:15 AM MILAGROS BROWN Date Time Provider Department Center 10/07/2024 10:15 AM [id number] BROWN [facility] N Reason for Visit: PT Progress Note [1596] Primary Visit Diagnosis:Lymphedema of left arm [I89.0] Allergies As of Date: 10/07/2024 Noted Allergy Reaction AMOXICILLIN 11/15/2022 2 - Rash Comments: rash arms trunk neck face, itching Chills Tolerates Ancef Date Reviewed: 10/07/2024 Reviewed by: Tatianna Crook RPh - Fully Assessed Prescriptions as of 10/12/2024 [...] by mouth at bedtime as needed. - Whisk (formerly Zypsee) ULTRA PLUS TEST strp 1 Each two [...] Take 1 tablet by mouth once daily. [facility] CNTHERAPYon 09-24-2024 CNTHERAPY OT/PT/Speech Visit (PNORCA) PAT SORTO ([id number]) 1960 F U[place] Date Time Provider Department 09/24/24 9:45 AM NOE JACKSON Date Time Provider Department [place] 09/24/2024 9:45 AM [id number] JACKSON [facility] N Reason for Visit: Physical Therapy [503] Primary Visit Diagnosis:Lymphedema of left arm [I89.0] Allergies As of Date: 09/24/2024 Noted Allergy Reaction AMOXICILLIN 11/15/2022 2 - Rash Comments: rash arms trunk neck face, itching Chills Tolerates Ancef Date Reviewed: 09/22/2024 Reviewed by: Gely Cardoso MA - Fully Assessed Prescriptions as [...] by mouth at bedtime as needed. - Solar Pool TechnologiesTOUCH ULTRA PLUS TEST strp 1 Each two [...] 1 tablet by mouth once daily. Normal [facility] US KIDNEY/BLADDERon 09-24-19 US KIDNEY/BLADDER * * [...] Bladder: Incompletely distended. IMPRESSION: No acute findings. Tape Rules Printing Machine Operator: PSCB Transcribe Date/Time: Sep 23 2024 4:26P Dictated by : KEDAR ORTIZ MD This examination was interpreted and the report reviewed and electronically signed by: KEDAR ORTIZ MD on Sep 23 2024 4:29PM EST [id number] Normal [facility] US Kidney - bilateral and Ur inary bladderon 09-23-2024 IMPRESSION: No acute findings. Tape Rules Printing Machine Operator: MARTÍNEZ Transcribe Date/Time: Sep 23 2024 4:26P Dictated by : KEDAR ORTIZ MD This examination was interpreted and the report reviewed and electronically signed by: KEDAR ORTIZ MD on Sep 23 2024 4:29PM EST [facility] * * *Final Report* * * DATE [...] shadowing calculus. -Lesion: None. Bladder: Incompletely distended. [facility] SYNGO Provider, [facility] - 09/23/2024 * * *Final Report* * [...] Incompletely distended. IMPRESSION IMPRESSION: No acute findings. Tape Rules Printing Machine Operator: MARTÍNEZ Transcribe Date/Time: Sep 23 2024 4:26P Dictated by : KEDAR ORTIZ MD This examination was interpreted and the report reviewed and electronically signed by: KEDAR ORTIZ MD on Sep 23 2024 4:29PM [facility] Radiology Study observation (narrative) [facility] US Kidney - bilateral and Ur inary bladderOrdered By: Ccf Provider on 09-23-2024 [facility] ALBUMIN/CREATININE RATIO, UR INEon 09-22-2024 Albumin DL <= 20 mg/L (U) [Mass/Vol] 209.8 mg/L Normal [facility] Comment on above: Order Comment: Speci men Type: URINE SPECIMENOrdering Facility: [facility] Address: [address] [place] [address] Performed By: #### U ACR ####[facility] LABCLIA [id number] [place] [address] [place] Albumin/Creatinine (U) [Mass ratio] 86 mg/g High <30 [facility] Comment on above: Order Comment: Speci men Type: URINE SPECIMENOrdering Facility: [facility] Address: [address] [place] [address] Result Comment: Adul t Male and Female Nephrotic Criteria:<30 mg/g is considered normal to mildly qcciirneb22-623 mg/g is considered moderately increased>300 mg/g is considered severely increasedKDIGO. (2013). KDIGO 2012 Clinical Practice Guideline for the Evaluation and Management of Chronic Kidney Disease. Official Journal of the International Society of Nephrology, 3(1), 1-150. Performed By: #### U ACR ####[facility] LABCLIA [id number] [place] [id number] [place] Creatinine (U) [Mass/Vol] 245.1 mg/dL Normal 20.0-300.0 [facility] Comment on above: Order Comment: Speci men Type: URINE SPECIMENOrdering Facility: [facility] Address: [address] [place] [address] Performed By: #### U ACR ####[facility] LABCLIA [id number] [place] [address] [place] CNOVon 09-22-2024 CNOV Normal [facility] CNPNon 09-22-2024 CNPN Normal [facility] CNTHERAPYon 09-22-2024 CNTHERAPY OT/PT/Speech Visit (PNORCA) PAT SORTO ([id number]) 1960 F UPA Date Time Provider Department 09/22/24 10:30 AM NOE JACKSON [facility] Date Time Provider Department Center 09/22/2024 10:30 AM [id number], MIRANDA [facility] N Reason for Visit: Physical Therapy [503] Primary Visit Diagnosis:Lymphedema of left arm [I89.0] Allergies As of Date: 09/22/2024 Noted Allergy Reaction AMOXICILLIN 11/15/2022 2 - Rash Comments: rash arms trunk neck face, itching Chills Tolerates Ancef Date Reviewed: 09/08/2024 Reviewed by: Tatianna Crook [facility] - Fully Assessed Prescriptions as of 09/22/2024 [...] by mouth at bedtime as needed. - Solar Pool TechnologiesTOAnavex ULTRA PLUS TEST strp 1 Each two [...] 1 tablet by mouth once daily. Normal [facility] Comprehensive metabolic 2000 panelon 09-22-2024 Albumin [Mass/Vol] 3.8 g/dL Low 3.9-4.9 [facility] Comment on above: Order Comment: Speci men Type: BLOOD SPECIMENOrdering Facility: [facility] Address: [address] [place] [address] Performed By: #### 2 4323-8 ####[facility] [id number] [address] OF HEATHER#### LIPNF ####[facility] LABCLIA [id number] [place] [address] [place] ALP [Catalytic activity/Vol] 57 U/L Normal 34-123 [facility] Comment on above: Order Comment: Speci men Type: BLOOD SPECIMENOrdering Facility: [facility] Address: [address] [place] [address] Performed By: #### 2 4323-8 ####[facility] MILLTOWNCLIA [id number] [place] [address] [place]#### LIPNF ####[facility] LABCLIA [id number] [place] [address] [place] ALT [Catalytic activity/Vol] 13 U/L Normal 7-38 [facility] Comment on above: Order Comment: Speci men Type: BLOOD SPECIMENOrdering Facility: [facility] Address: [address] [place] [address] Performed By: #### 2 4323-8 ####[facility]ITAL[facility] [id number] [place] [address] [place]#### LIPNF ####[facility] LABCLIA [id number] [place] [address] [place] Anion gap [Moles/Vol] 11 mmol/L Normal 8-15 [facility] Comment on above: Order Comment: Speci men Type: BLOOD SPECIMENOrdering Facility: [facility] Address: [address] [place], [place] [address] Performed By: #### 2 4323-8 ####[facility] MILLTOWNCLIA [id number] [place] [address] [place]#### LIPNF ####[facility] LABCLIA [id number] [place] [address] [place] AST [Catalytic activity/Vol] 20 U/L Normal 13-35 [facility] Comment on above: Order Comment: Speci men Type: BLOOD SPECIMENOrdering Facility: [facility] Address: [address] [place] [address] Performed By: #### 2 4323-8 ####[facility] MILLTOWNCLIA [id number] [place] [address] [place]#### LIPNF ####[facility] LABCLIA [id number] [place] [address] [place] Bilirubin [Mass/Vol] 0.3 mg/dL Normal 0.2-1.[address] [facility] Comment on above: Order Comment: Speci men Type: BLOOD SPECIMENOrdering Facility: [facility] Address: [address] [place] [address] Performed By: #### 2 4323-8 ####[facility]ITAL[facility]CL[facility] [id number] [place] [address] [place]#### LIPNF ####[facility] LABCLIA [id number] [place] [address] [place] Calcium [Mass/Vol] 9.5 mg/dL Normal 8.5-10.2 [facility] Comment on above: Order Comment: Speci men Type: BLOOD SPECIMENOrdering Facility: [facility] Address: [address] [place] [address] Performed By: #### 2 4323-8 ####[facility] MILLWNCLIA [id number] [place] [address] [place]#### LIPNF ####[facility] LABCLIA [id number] [place] [address] [place] Chloride [Moles/Vol] 101 mmol/L Normal 98-[address] [facility] Comment on above: Order Comment: Speci men Type: BLOOD SPECIMENOrdering Facility: [facility] Address: [address] [place] [address] Performed By: #### 2 4323-8 ####[facility]ITAL[facility]CL[facility] [id number] [place] [address] [place]#### LIPNF ####[facility] LABCLIA [id number] [place] [address] [place] CO2 [Moles/Vol] 24 mmol/L Normal 22-30 [facility] Comment on above: Order Comment: Speci men Type: BLOOD SPECIMENOrdering Facility: [facility] Address: [address] [place] [address] Performed By: #### 2 4323-8 ####[facility]OSPITALL[facility] [id number] [place] [address] [place]#### LIPNF ####[facility] LABCLIA [id number] [place] [address] [place] Creatinine [Mass/Vol] 1.96 mg/dL High 0.58-0.96 [facility] Comment on above: Order Comment: Speci men Type: BLOOD SPECIMENOrdering Facility: [facility] Address: [address] [place] [address] Performed By: #### 2 4323-8 ####[facility] MILLWNCLIA [id number] [place] [address] [place] OF HEATHER#### LIPNF ####[facility] LABCLIA [id number] [place] [address] [place] Creatinine and Glomerular filtration rate.predicted panel (S/P/Bld) 28 mL/min/1.73m??? Low >=60 [facility] Comment on above: Order Comment: Speci men Type: BLOOD SPECIMENOrdering Facility: [facility] Address: [address] [place] [address] Result Comment: Sherlyn mated Glomerular Filtration Rate [...] actual GFR. Performed By: #### 2 4323-8 ####[facility] [id number] [place] [address] [place]#### LIPNF ####[facility] LABIA [id number] [place] [address] [place] Glucose [Mass/Vol] 199 mg/dL High 74-99 [facility] Comment on above: Order Comment: Speci men Type: BLOOD SPECIMENOrdering Facility: [facility] Address: [address] [place] [address] Result Comment: The [place] Diabetes Association (ADA) provides guidance for cutoff [...] Standards of Medical Care in Diabetes 2016, [place] Diabetes Association. Diabetes Care. 2016.39(Suppl 1). Performed By: #### 2 4323-8 ####[facility] [id number] [place] [address] [place]#### LIPNF ####[facility] LABCLIA [id number] [place] [address] [place] Potassium [Moles/Vol] 3.6 mmol/L Low 3.7-5.1 [facility] Comment on above: Order Comment: Speci men Type: BLOOD SPECIMENOrdering Facility: [facility] Address: [address] [place] [address] Performed By: #### 2 4323-8 ####[facility] [id number] [place] [address] [place]#### LIPNF ####[facility] LABCLIA [id number] [place] [address] [place] Protein [Mass/Vol] 6.6 g/dL Normal 6.3-8.0 [facility] Comment on above: Order Comment: Speci men Type: BLOOD SPECIMENOrdering Facility: [facility] Address: [address] [place] [address] Performed By: #### 2 4323-8 ####[facility] [id number] [place] [address] [place]#### LIPNF ####[facility] LABCLIA [id number] [place] [address] [place] Sodium [Moles/Vol] 136 mmol/L Normal 136-144 [facility] Comment on above: Order Comment: Speci men Type: BLOOD SPECIMENOrdering Facility: [facility] Address: [address] [place] [address] Performed By: #### 2 4323-8 ####[facility] [id number] [place] [address] [place]#### LIPNF ####[facility] LABCLIA [id number] [place] [address] [place] Urea nitrogen [Mass/Vol] 62 mg/dL High 7-21 [facility] Comment on above: Order Comment: Sunny leah Type: BLOOD SPECIMENOrdering Facility: [facility] Address: [address] [place] [address] Performed By: #### 2 4323-8 ####[facility] ELLSWORTHNIA [id number] [place] [address] [place]#### LIPNF ####[facility] LABCLIA [id number] [place] [address] [place] HbA1c (Bld)on 09-22-2024 Average glucose Estimated from glycated hemoglobin (Bld) [Mass/Vol] 174 mg/dL Normal [facility] Comment on above: Order Comment: Sunny lynn Type: BLOOD SPECIMENOrdering Facility: [facility] Address: [address] [place] [address] Result Comment: eAG: (Estimated average glucose) is a calculated value from HgbA1c and is senior customer service representative of the average blood glucose level in the last 2-3 month period. Performed By: #### 5 5454-3 ####[facility] LABCLIA [id number] [place] [address] [place] HbA1c (Bld) [Mass fraction] 7.7 % High 4.3-5.6 [facility] Comment on above: Order Comment: Sunny leah Type: BLOOD SPECIMENOrdering Facility: [facility] Address: [address] [place] [address] Result Comment: [place] Diabetes Association guidelines indicate that patients with HgbA1c in the range 5.7-6.4% are at increased risk for development of diabetes, and intervention by lifestyle modification may be beneficial. HgbA1c greater or equal to 6.5% is considered diagnostic of diabetes. Performed By: #### 5 5454-3 ####[facility] LABCLIA [id number] [address] [address] [place] LIPID PANEL, NONFASTINGon Cholesterol [Mass/Vol] 231 mg/dL High <200 [facility] Comment on above: Order Comment: Speci men Type: BLOOD SPECIMENOrdering Facility: [facility] Address: [address] [place] [address] Result Comment: <200 mg/dL, Desirable 200-239 mg/dL, Borderline high>239 mg/dL, High Performed By: #### 2 4323-8 ####[facility] [id number] [place] [address] [place]#### LIPNF ####[facility] LABCLIA [id number] [place] [address] [place] HDL CHOLESTEROL, NF 29 mg/dL Low >39 [facility] Comment on above: Order Comment: Speci men Type: BLOOD SPECIMENOrdering Facility: [facility] Address: [address] [place] [address] Result Comment: 40-5 9 mg/dL, Acceptable>59 mg/dL, High: Negative risk factor for coronary heart disease<40 mg/dL, Low: Positive risk factor for coronary heart disease Performed By: #### 2 4323-8 ####[facility] [id number] [place] [address] [place]#### LIPNF ####[facility] LABCLIA [id number] [address] STATES OF HEATHER LDL CHOLESTEROL CALCULATED, NF 116 mg/dL High <100 [facility] Comment on above: Order Comment: Speci men Type: BLOOD SPECIMENOrdering Facility: [facility] Address: [address] [place] [address] Result Comment: <100 mg/dL, Optimal 100-129 mg/dL, Near optimal/above optimal 130-159 mg/dL, Borderline high 160-189 mg/dL, High>189 mg/dL, Very highSecondary prevention optimal LDL Cholesterol levels are recommended to be <70 mg/dLLDL cholesterol is calculated using the Fernandez-NIH equation. Performed By: #### 2 4323-8 ####[facility]ITAL[facility]CL[facility] [id number] [place] [address] [place]#### LIPNF ####[facility] LABCLIA [id number] [place] [address] [place] LDL/HDL RATIO, NF 4.00 mg/dL High <2.54 [facility] Comment on above: Order Comment: Speci men Type: BLOOD SPECIMENOrdering Facility: [facility] Address: [address] [place] [address] Result Comment: Refe rence:1. National Cholesterol Education Program ATP III Guideline At-A-Glance Quick Desk Reference: National Heart, Lung, and Blood Friend. National Institutes of Health. 2001: NIH Publication No. 01-3305.2. An International Atherosclerosis Society position paper: global recommendations for the management of dyslipidemia: executive summary, Atherosclerosis. 2014: 232(2):410-413. Performed By: #### 2 432-8 ####[facility] [id number] [place] [address] [place]#### LIPNF ####[facility] LABCLIA [id number] [place] [address] [place] NON HDL CHOL, NF 202 mg/dL High <130 [facility] Comment on above: Order Comment: Speci men Type: BLOOD SPECIMENOrdering Facility: [facility] Address: [address] [place] [address] Result Comment: <130 mg/dL, Optimal 130-159 mg/dL, Near optimal/above optimal 160-189 mg/dL, Borderline high 190-219 mg/dL, High>219 mg/dL, Very highSecondary prevention optimal non HDL Cholesterol levels are recommended to be <100 mg/dL Performed By: #### 2 4323-8 ####[facility]ITAL[facility]CL[facility] [id number] [place] [address] [place]#### LIPNF ####[facility] LABCLIA [id number] [place] [address] [place] T CHOL/HDL RATIO NF 7.97 mg/dL High <5.10 [facility] Comment on above: Order Comment: Speci men Type: BLOOD SPECIMENOrdering Facility: [facility] Address: [address] [place] [address] Performed By: #### 2 4323-8 ####[facility]ITAL[facility]CL[facility] [id number] [place] [address] [place]#### LIPNF ####[facility] LABCLIA [id number] [place] [address] [place] TRIGLYCERIDES, NF 491 mg/dL High <150 [facility] Comment on above: Order Comment: Speci men Type: BLOOD SPECIMENOrdering Facility: [facility] Address: [address] [place] [address] Result Comment: <150 mg/dL, Normal 150-199 mg/dL, Borderline high 200-499 mg/dL, High>499 mg/dL, Very high Performed By: #### 2 4323-8 ####[facility] [id number] [place] [address] [place]#### LIPNF ####[facility] LABCLIA [id number] [place] [address] [place] VLDL CHOLESTEROL, NF 87 mg/dL High <[address] [facility] Comment on above: Order Comment: Speci men Type: BLOOD SPECIMENOrdering Facility: [facility] Address: [address] [place] [address] Performed By: #### 2 4323-8 ####[facility]ITAL[facility]CL[facility] [id number] [place] [address] [place]#### LIPNF ####[facility] LABCLIA [id number] [place] [address] [place] UA DIP, URINE (POC)on 2024 BILIRUBIN UA (POCT) Negative Negative [facility] CLARITY UA (POCT) Clear [facility] COLOR UA (POCT) Yellow [facility] GLUCOSE UA (POCT) 250 mg/dL Abnormal [facility] Hemoglobin Ql (U) Large Abnormal Negative [facility] Interpretation and review of laboratory results Abnormal [facility] KETONE UA (POCT) Negative Negative mg/dL [facility] LEUKOCYTES UA (POCT) Moderate Abnormal Negative [facility] NITRITE UA (POCT) Negative Negative [facility] PH UA (POCT) 5.5 4.5 - 8.0 [facility] Protein Ql (U) 30 mg/dL Abnormal Negative [facility] SPECIFIC GRAVITY UA (POCT) 1.02 1.005 - 1.030 [facility] UROBILINOGEN UA (POCT) 0.2 Noemy l E.U./dL [facility] Location:[facility], [address] [place] [address], [id number] [place] [address] POINT OF CARE [facility] Urinalysis complete panel (U )on 09-22-2024 Bacteria uL 1220.7 uL High - 941 uL [facility] Bilirubin Ql (U) Negative Negative [facility] Clarity (Unsp spec) Turbid Abnormal Clear [facility] Color (U) Yellow Yellow [facility] Epithelial cells LM.HPF (Urine sed) [#/Area] None Seen /HPF [facility] Glucose Test strip (U) [Mass/Vol] 1+ Abnormal Negative [facility] Hemoglobin Ql (U) 3+ Abnormal Negative [facility] Hyaline casts (Urine sed) [#/Area] 1-3 /LPF Abnormal 0 /LPF [facility] Interpretation and review of laboratory results Abnormal [facility] Ketones Ql (U) Negative Negative [facility] Leukocyte esterase Test strip Ql (U) 3+ Abnormal Negative [facility] Nitrite Ql (U) Negative Negative [facility] pH (U) 6 [pH] NINF - 8.5 [facility] Protein (U) [Mass/Vol] 1+ Abnormal Negative Cl [facility] RBC LM.HPF (Urine sed) [#/Area] /[HPF] Abnormal 0-2 /HPF [facility] Specific gravity (U) [Rel density] 1.016 1.005 - 1.030 [facility] Urobilinogen Ql (U) 0.2 EU/dL 0.2-1.0 EU/dL [facility] WBC LM.HPF (Urine sed) [#/Area] /[HPF] Abnormal 0-5 /HPF [facility] This test was develo ped and its performance characteristics determined by [facility]'s [facility] Pathology and Laboratory Medicine Friend (RTPLMI). It has not been cleared or approved by the FDA. -[facility] is regulated under CLIA as qualified to perform high-complexity testing. This test is used for clinical purposes. It should not be regarded as investigational or for research. [facility] BACTERIA UL 1220.7 uL High Negative [facility] Comment on above: Order Comment: Speci men Type: URINE SPECIMENOrdering Facility: [facility] Address: [address] [place] [address] Performed By: #### 2 4356-8 ####[facility] LABIA [id number] [place] [address] [place] Bilirubin Ql (U) Negative Normal Negative [facility] Comment on above: Order Comment: Speci men Type: URINE SPECIMENOrdering Facility: [facility] Address: [address] [place] [address] Performed By: #### 2 4356-8 ####[facility] LABIA [id number] [place] [address] [place] Clarity (Unsp spec) Turbid Abnormal Clear [facility] Comment on above: Order Comment: Speci men Type: URINE SPECIMENOrdering Facility: [facility] Address: [address] [place] [address] Performed By: #### 2 4356-8 ####[facility] LABIA [id number] [place] [address] [place] Color (U) Yellow Normal Yellow [facility] Comment on above: Order Comment: Speci men Type: URINE SPECIMENOrdering Facility: [facility] Address: [address] [place] [address] Performed By: #### 2 4356-8 ####[facility] LABCLIA [id number] [address] [place] [address] [place] Epithelial cells LM.HPF (Urine sed) [#/Area] None Seen Normal [facility] Comment on above: Order Comment: Speci men Type: URINE SPECIMENOrdering Facility: [facility] Address: [address] [place] [address] Performed By: #### 2 4356-8 ####[facility] LABCLIA [id number] [address] [place] [address] [place] Glucose Test strip (U) [Mass/Vol] 1+ Abnormal Negative [facility] Comment on above: Order Comment: Speci men Type: URINE SPECIMENOrdering Facility: [facility] Address: [address] [place] [address] Performed By: #### 2 4356-8 ####[facility] LABCLIA [id number] [address], [facility] [place] Hemoglobin Ql (U) 3+ Abnormal Negative [facility] Comment on above: Order Comment: Speci men Type: URINE SPECIMENOrdering Facility: [facility] Address: [address] [place] [address] Performed By: #### 2 4356-8 ####[facility] LABCLIA [id number] [facility] [address] [place] [address] [place] Hyaline casts (Urine sed) [#/Area] 1-3 /LPF Abnormal 0 /LPF [facility] Comment on above: Order Comment: Speci men Type: URINE SPECIMENOrdering Facility: [facility] Address: [address] [place] [address] Performed By: #### 2 4356-8 ####[facility] LABCLIA [id number] [address] [place] [address] [place] Ketones Ql (U) Negative Normal Negative [facility] Comment on above: Order Comment: Speci men Type: URINE SPECIMENOrdering Facility: [facility] Address: [address] [place] [address] Performed By: #### 2 4356-8 ####[facility] LABCLIA [id number] [address], [place] [address] [place] Leukocyte esterase Test strip Ql (U) 3+ Abnormal Negative [facility] Comment on above: Order Comment: Speci men Type: URINE SPECIMENOrdering Facility: [facility] Address: [address] [place] [address] Performed By: #### 2 4356-8 ####[facility] LABCLIA [id number] [place] [address] [place] Nitrite Ql (U) Negative Normal Negative [facility] Comment on above: Order Comment: Speci men Type: URINE SPECIMENOrdering Facility: [facility] Address: [address] [place] [address] Performed By: #### 2 4356-8 ####[facility] LABCLIA [id number] [address], [place] [address] [place] pH (U) 6.0 [pH] Normal <8.5 [facility] Comment on above: Order Comment: Speci men Type: URINE SPECIMENOrdering Facility: [facility] Address: [address] [place] [address] Performed By: #### 2 4356-8 ####[facility] LABIA [id number] [place] [address] [place] Protein (U) [Mass/Vol] 1+ Abnormal Negative [facility] Comment on above: Order Comment: Speci men Type: URINE SPECIMENOrdering Facility: [facility] Address: [address] [place] [address] Performed By: #### 2 4356-8 ####[facility] LABIA [id number] [place] [address] [place] RBC LM.HPF (Urine sed) [#/Area] /[HPF] Abnormal 0-2 /HPF [facility] Comment on above: Order Comment: Speci men Type: URINE SPECIMENOrdering Facility: [facility] Address: [address] [place] [address] Performed By: #### 2 4356-8 ####[facility] LABIA [id number] [place] [address] [place] Specific gravity (U) [Rel density] 1.016 Normal 1.005-1.03 0 [facility] Comment on above: Order Comment: Speci men Type: URINE SPECIMENOrdering Facility: [facility] Address: [address] [place] [address] Performed By: #### 2 4356-8 ####[facility] [id number] [address] [place] Urobilinogen Ql (U) 0.2 EU/dL Normal 0.2-1.0 EU/dL [facility] Comment on above: Order Comment: Speci men Type: URINE SPECIMENOrdering Facility: [facility] Address: [address] [place] [address] Performed By: #### 2 4356-8 ####[facility] LABIA [id number] [place] [address] [place] WBC LM.HPF (Urine sed) [#/Area] /[HPF] Abnormal 0-5 /HPF [facility] Comment on above: Order Comment: Speci men Type: URINE SPECIMENOrdering Facility: [facility] Address: [address] [place] [address] Performed By: #### 2 4356-8 ####[facility] LABIA [id number] [place] [address] [facility] CNTHERAPYon 09-11-2024 CNTHERAPY OT/PT/Speech Visit (PNORCA) PAT SORTO ([id number]) 1960 F UPA Date Time Provider Department 09/11/24 9:00 AM NOE JACKSON [facility] Date Time Provider Department Center 09/11/2024 9:00 AM [id number], MIRANDA [facility] N Reason for Visit: [...] by mouth at bedtime as needed. - mycujooUCH ULTRA PLUS TEST strp 1 Each two [...] 1 tablet by mouth once daily. Normal [facility] Bacteria Ur Culton 5 Bacteria identified Cx Nom (U) Abnormal [facility] Comment on above: Performed By: #### 6 30-4 ####[facility] LABCLIA [id number] [address] [place] CNOVon 09-07-2024 CNOV Normal [facility] UA DIP, URINE (POC)on 2024 BILIRUBIN UA (POCT) Negative Negative [facility] CLARITY UA (POCT) Cloudy [facility] COLOR UA (POCT) Yellow [facility] GLUCOSE UA (POCT) Negative Negative mg/dL [facility] Hemoglobin Ql (U) Large Abnormal Negative [facility] Interpretation and review of laboratory results Abnormal [facility] KETONE UA (POCT) Negative Negative mg/dL [facility] LEUKOCYTES UA (POCT) Small Abnormal Negative [facility] NITRITE UA (POCT) Negative Negative [facility] PH UA (POCT) 5.5 4.5 - 8.0 [facility] Protein Ql (U) 100 mg/dL Abnormal Negative [facility] SPECIFIC GRAVITY UA (POCT) 1.025 1.005 - 1.030 [facility] UROBILINOGEN UA (POCT) 0.2 Noemy l E.U./dL [facility] Location:[address], [address] [place] [address] POINT OF CARE [facility] CNOVon 09-03-2024 CNOV Normal [facility] CBC W Auto Differential pane l (Bld)on 09-01-2024 Basophils (Bld) [#/Vol] 0.06 10*3/uL Normal <0.11 [facility] Comment on above: Order Comment: Speci men Type: BLOOD SPECIMENOrdering Facility: [facility] Address: [address] [place] [address] Performed By: #### 5 7021-8 ####[facility] [id number] [place] [address] [place] Basophils/100 WBC (Bld) 0.8 % Normal [facility] Comment on above: Order Comment: Speci men Type: BLOOD SPECIMENOrdering Facility: [facility] Address: [address] [place] [address] Performed By: #### 5 7021-8 ####[facility] [id number] [place] [address] [place] Differential cell count method Nom (Bld) Auto Normal [facility] Comment on above: Order Comment: Speci men Type: BLOOD SPECIMENOrdering Facility: [facility] Address: [address] [place] [address] Performed By: #### 5 7021-8 ####[facility] [id number] [place] [address] [place] Eosinophils (Bld) [#/Vol] 0.11 10*3/uL Normal <0.46 [facility] Comment on above: Order Comment: Speci men Type: BLOOD SPECIMENOrdering Facility: [facility] Address: [address] [place] [address] Performed By: #### 5 7021-8 ####[facility] [id number] [place] [address] [place] Eosinophils/100 WBC (Bld) 1.5 % Normal [facility] Comment on above: Order Comment: Speci men Type: BLOOD SPECIMENOrdering Facility: [facility] Address: [address] [place] [address] Performed By: #### 5 7021-8 ####[facility] [id number] [place] [address] [place] Erythrocyte distribution width (RBC) [Ratio] 13.7 % Normal 11.5-15.0 [facility] Comment on above: Order Comment: Speci men Type: BLOOD SPECIMENOrdering Facility: [facility] Address: [address] [place] [address] Performed By: #### 5 7021-8 ####[facility] [id number] [place] [address] [place] Hematocrit (Bld) [Volume fraction] 33.7 % Low 36.0-46.0 [facility] Comment on above: Order Comment: Speci men Type: BLOOD SPECIMENOrdering Facility: [facility] Address: [address] [place] [address] Performed By: #### 5 7021-8 ####[facility] [id number] [place] [address] [place] Hemoglobin (Bld) [Mass/Vol] 11.4 g/dL Low 11.5-15.5 [facility] Comment on above: Order Comment: Speci men Type: BLOOD SPECIMENOrdering Facility: [facility] Address: [address] [place] [address] Performed By: #### 5 7021-8 ####[facility] MILLTOWNCLIA [id number] [place] [address] [place] Immature granulocytes (Bld) [#/Vol] 0.06 10*3/uL Normal <0.10 [facility] Comment on above: Order Comment: Speci men Type: BLOOD SPECIMENOrdering Facility: [facility] Address: [address] [place] [address] Performed By: #### 5 7021-8 ####[facility] MAURYWNCLIA [id number] [place] [address] [place] Immature granulocytes/100 WBC (Bld) 0.8 % Normal [facility] Comment on above: Order Comment: Speci men Type: BLOOD SPECIMENOrdering Facility: [facility] Address: [address] [place] [address] Performed By: #### 5 7021-8 ####[facility] MAURYWNCLIA [id number] [place] [address] [place] Lymphocytes (Bld) [#/Vol] 1.73 10*3/uL Normal 1.00-4.00 [facility] Comment on above: Order Comment: Speci men Type: BLOOD SPECIMENOrdering Facility: [facility] Address: [address] [place] [address] Performed By: #### 5 7021-8 ####[facility] MILLTOWNCLIA [id number] [place] [address] [place] Lymphocytes/100 WBC (Bld) 23.4 % Normal [facility] Comment on above: Order Comment: Speci men Type: BLOOD SPECIMENOrdering Facility: [facility] Address: [address] [place] [address] Performed By: #### 5 7021-8 ####[facility] [id number] [place] [address] [place] MCH (RBC) [Entitic mass] 28.8 pg Normal 26.0-34.0 [facility] Comment on above: Order Comment: Speci men Type: BLOOD SPECIMENOrdering Facility: [facility] Address: [address] [place] [address] Performed By: #### 5 7021-8 ####[facility] [id number] [place] [address] [place] MCHC (RBC) [Mass/Vol] 33.8 g/dL Normal 30.5-36.0 [facility] Comment on above: Order Comment: Speci men Type: BLOOD SPECIMENOrdering Facility: [facility] Address: [address] [place] [address] Performed By: #### 5 7021-8 ####[facility] [id number] [place] [address] [place] MCV (RBC) [Entitic vol] 85.1 fL Normal 80.0-100.0 [facility] Comment on above: Order Comment: Speci men Type: BLOOD SPECIMENOrdering Facility: [facility] Address: [address] [place] [address] Performed By: #### 5 7021-8 ####[facility] [id number] [place] [address] [place] Monocytes (Bld) [#/Vol] 0.59 10*3/uL Normal <0.87 [facility] Comment on above: Order Comment: Speci men Type: BLOOD SPECIMENOrdering Facility: [facility] Address: [address] [place] [address] Performed By: #### 5 7021-8 ####[facility] [id number] [address] [place] Monocytes/100 WBC (Bld) 8.0 % Normal [facility] Comment on above: Order Comment: Speci men Type: BLOOD SPECIMENOrdering Facility: [facility] Address: [address] [place] [address] Performed By: #### 5 7021-8 ####[facility] [id number] [place] [address] [place] Neutrophils (Bld) [#/Vol] 4.83 10*3/uL Normal 1.45-7.50 [facility] Comment on above: Order Comment: Speci men Type: BLOOD SPECIMENOrdering Facility: [facility] Address: [address] [place] [address] Performed By: #### 5 7021-8 ####[facility] [id number] [place] [address] [place] Neutrophils/100 WBC (Bld) 65.5 % Normal [facility] Comment on above: Order Comment: Speci men Type: BLOOD SPECIMENOrdering Facility: [facility] Address: [address] [place] [address] Performed By: #### 5 7021-8 ####[facility] [id number] [place] [address] [place] Nucleated RBC (Bld) [#/Vol] 10*3/uL Normal <0.01 [facility] Comment on above: Order Comment: Speci men Type: BLOOD SPECIMENOrdering Facility: [facility] Address: [address] [place] [address] Performed By: #### 5 7021-8 ####[facility] [id number] [place] [address] [place] Nucleated RBC/100 WBC (Bld) [Ratio] 0.0 /100 WBC Normal [facility] Comment on above: Order Comment: Speci men Type: BLOOD SPECIMENOrdering Facility: [facility] Address: [address] [place] [address] Performed By: #### 5 7021-8 ####[facility] FLORESITANCSADAF [id number] [place] [address] [place] Platelet mean volume (Bld) [Entitic vol] 10.8 fL Normal 9.0-12.7 [facility] Comment on above: Order Comment: Speci men Type: BLOOD SPECIMENOrdering Facility: [facility] Address: [address] [place] [address] Performed By: #### 5 7021-8 ####[facility] HOSPITALNCKey [id number] [place] [address] [place] Platelets (Bld) [#/Vol] 186 10*3/uL Normal 150-400 [facility] Comment on above: Order Comment: Speci men Type: BLOOD SPECIMENOrdering Facility: [facility] Address: [address] [place] [address] Performed By: #### 5 7021-8 ####[facility] HOSPITALNCASHAA [id number] [place] [address] [place] RBC (Bld) [#/Vol] 3.96 10*6/uL Normal 3.90-5.20 [facility] Comment on above: Order Comment: Speci men Type: BLOOD SPECIMENOrdering Facility: [facility] Address: [address] [place] [address] Performed By: #### 5 7021-8 ####[facility] HOSPITALNCLIA [id number] [place] [address] [place] WBC (Bld) [#/Vol] 7.38 10*3/uL Normal 3.70-11.00 [facility] Comment on above: Order Comment: Speci men Type: BLOOD SPECIMENOrdering Facility: [facility] Address: [address] [place] [address] Performed By: #### 5 7021-8 ####[facility] MILLTOWNCLIA [id number] [place] [address] [place] Comprehensive metabolic 2000 panelon 09-01-2024 Albumin [Mass/Vol] 4.0 g/dL Normal 3.9-4.9 [facility] Comment on above: Order Comment: Speci men Type: BLOOD SPECIMENOrdering Facility: [facility] Address: [address] [place] [address] Performed By: #### 2 4323-8 ####[facility] MILLWNCLIA [id number] [place] [address] [place] ALP [Catalytic activity/Vol] 66 U/L Normal 34-123 [facility] Comment on above: Order Comment: Speci men Type: BLOOD SPECIMENOrdering Facility: [facility] Address: [address] [place] [address] Performed By: #### 2 4323-8 ####[facility] HOSPITALNCLIA [id number] [place] [address] [place] ALT [Catalytic activity/Vol] 18 U/L Normal 7-38 [facility] Comment on above: Order Comment: Speci men Type: BLOOD SPECIMENOrdering Facility: [facility] Address: [address] [place] [address] Performed By: #### 2 4323-8 ####[facility] MILLWNCLIA [id number] [place] [address] [place] Anion gap [Moles/Vol] 13 mmol/L Normal 8-15 [facility] Comment on above: Order Comment: Speci men Type: BLOOD SPECIMENOrdering Facility: [facility] Address: [address] [place] [address] Performed By: #### 2 4323-8 ####[facility] HOSPITALTOWNCLIA [id number] [place] [address] [place] AST [Catalytic activity/Vol] 21 U/L Normal 13-35 [facility] Comment on above: Order Comment: Speci men Type: BLOOD SPECIMENOrdering Facility: [facility] Address: [address] [place] [address] Performed By: #### 2 4323-8 ####[facility] HOSPITALNCINTERMOUNTAIN MEDICAL [facility]ENTER [id number] [place] [address] [place] Bilirubin [Mass/Vol] 0.2 mg/dL Normal 0.2-1.[address] [facility] Comment on above: Order Comment: Speci men Type: BLOOD SPECIMENOrdering Facility: [facility] Address: [address] [place] [address] Performed By: #### 2 4323-8 ####[facility] HOSPITALNCINTERMOUNTAIN MEDICAL [facility]ENTER [id number] [place] [address] [place] Calcium [Mass/Vol] 9.6 mg/dL Normal 8.5-10.2 [facility] Comment on above: Order Comment: Speci men Type: BLOOD SPECIMENOrdering Facility: [facility] Address: [address] [place] [address] Performed By: #### 2 4323-8 ####[facility]OSPITALNCINTERMOUNTAIN MEDICAL [facility]ENTER [id number] [place] [address] [place] Chloride [Moles/Vol] 102 mmol/L Normal 98-[address] [facility] Comment on above: Order Comment: Speci men Type: BLOOD SPECIMENOrdering Facility: [facility] Address: [address] [place] [address] Performed By: #### 2 4323-8 ####[facility] HOSPITALA [id number] [place] [address] [place] CO2 [Moles/Vol] 23 mmol/L Normal 22-30 [facility] Comment on above: Order Comment: Speci men Type: BLOOD SPECIMENOrdering Facility: [facility] Address: [address] [place] [address] Performed By: #### 2 4323-8 ####[facility] HOSPITALNCINTERMOUNTAIN MEDICAL CENTER [id number] [place] [address] [place] Creatinine [Mass/Vol] 1.47 mg/dL High 0.58-0.96 [facility] Comment on above: Order Comment: Speci men Type: BLOOD SPECIMENOrdering Facility: [facility] Address: [address] [place] [address] Performed By: #### 2 4323-8 ####[facility]INCIA[facility] HOSPITALNCLI [id number] [place] [address] [place] Creatinine and Glomerular filtration rate.predicted panel (S/P/Bld) 39 mL/min/1.73m??? Low >=60 [facility] Comment on above: Order Comment: Speci men Type: BLOOD SPECIMENOrdering Facility: [facility] Address: [address] [place] [address] Result Comment: Sherlyn mated Glomerular Filtration Rate [...] GFR. Performed By: #### 2 4323-8 ####[facility] HOSPITALA [id number] [place] [address] [place] Glucose [Mass/Vol] 261 mg/dL High 74-99 [facility] Comment on above: Order Comment: Speci men Type: BLOOD SPECIMENOrdering Facility: [facility] Address: [address] [place] [address] Result Comment: The [place] [employer] (ADA) provides guidance for cutoff [...] Standards of Medical Care in Diabetes 2016, [place] [employer]. Diabetes Care. 2016.39(Suppl 1). Performed By: #### 2 4323-8 ####[facility] MILLTOWNCLIA [id number] [place] [address] [place] Potassium [Moles/Vol] 4.1 mmol/L Normal 3.7-5.1 [facility] Comment on above: Order Comment: Speci men Type: BLOOD SPECIMENOrdering Facility: [facility] Address: [address] [place] [address] Performed By: #### 2 4323-8 ####[facility] MILLTOWNCLIA [id number] [place] [address] [place] Protein [Mass/Vol] 7.3 g/dL Normal 6.3-8.0 [facility] Comment on above: Order Comment: Speci men Type: BLOOD SPECIMENOrdering Facility: [facility] Address: [address] [place] [address] Performed By: #### 2 4323-8 ####J[facility] HOSPITALTOWNCLIA [id number] [place] [address] [place] Sodium [Moles/Vol] 138 mmol/L Normal 136-144 [facility] Comment on above: Order Comment: Speci men Type: BLOOD SPECIMENOrdering Facility: [facility] Address: [address] [place] [address] Performed By: #### 2 4323-8 ####[facility] MILLTOWNCLIA [id number] [place] [address] [place] Urea nitrogen [Mass/Vol] 44 mg/dL High 7-21 [facility] Comment on above: Order Comment: Speci men Type: BLOOD SPECIMENOrdering Facility: [facility] Address: [place] [id number] Performed By: #### 2 4323-8 ####[facility] FR[facility]ISC[facility]ALTH MOORESVILLESADAF [id number] [address] OF [facility] [id number] 08-31-2024 [id number] HNO ID: [id number] Author: MILAGROS BROWN PT Service: ? Author Type: Physical Therapist Type: [id number] Filed: 08/31/2024 10:40 Note Text: [facility] Physical Therapy Plan of Care Certification Patient Name: Pat Sorto : 1960 [facility] #: [id number] Date: 08/27/2024 To: Micki Butler APRN.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 From Therapist: Milagros Brown PT RE: Patient [...] Planned: 8 Planned Treatment Interventions: Therapeutic exercise (76956), Manual therapy (65617), Self-halfway management (49854), Patient/Family/Caregive r Education, Therapeutic activities (53067) (lymphedema program) PLAN FOR NEXT VISIT: lymphedema program Patient demonstrates good understanding of plan of care and treatment. The above goals and plan of care were discussed and agreed upon by patient/family. For further details regarding this patient refer to the Physical Therapy electronically documented visit dated 08/27/2024. Provider Attestation I have reviewed the treatment plan for Pat Sorto, CCF# [id number] for the period of 08/27/24 -- 10/26/24, established on 08/27/2024. Signature certifies the need for therapy services. [facility] CNTHERAPYon 08-27-2024 CNTHERAPY OT/PT/Speech Visit (PNORCA) PAT SORTO ([id number]) 1960 F [facility] Date Time Provider Department 08/27/24 11:00 AM MILAGROS BROWN Date Time Provider Department Center 08/27/2024 11:00 AM [id number] BROWN [facility] N Reason for Visit: PT Eval [747] Primary Visit Diagnosis:Lymphedema of left arm [I89.0] Other Visit Diagnoses:History of breast cancer [Z85.3] S/P breast reconstruction [Z98.890] Seroma of breast [N64.89] Allergies As of Date: 08/27/2024 Noted Allergy Reaction AMOXICILLIN 11/15/2022 2 - Rash Comments: rash arms trunk neck face, itching Chills Tolerates Ancef Date Reviewed: 08/11/2024 Reviewed by: Tatianna Crook RPh - Fully Assessed Prescriptions as of 08/31/2024 [...] by mouth at bedtime as needed. - Whisk (formerly Zypsee) ULTRA PLUS TEST strp 1 Each two [...] 1 tablet by mouth once daily. Normal [facility] CBC W Auto Differential pane l (Bld)on 08-04-2024 Basophils (Bld) [#/Vol] 0.04 10*3/uL Normal <0.11 [facility] Comment on above: Order Comment: Speci men Type: BLOOD SPECIMENOrdering Facility: [facility] Address: [address] [place] [address] Performed By: #### 5 7021-8 ####[facility] [id number] [place] [address] [place] Basophils/100 WBC (Bld) 0.7 % Normal [facility] Comment on above: Order Comment: Speci men Type: BLOOD SPECIMENOrdering Facility: [facility] Address: [address] [place] [address] Performed By: #### 5 7021-8 ####[facility] [id number] [place] [address] [place] Differential cell count method Nom (Bld) Auto Normal [facility] Comment on above: Order Comment: Speci men Type: BLOOD SPECIMENOrdering Facility: [facility] Address: [address] [place] [address] Performed By: #### 5 7021-8 ####[facility] [id number] [place] [address] [place] Eosinophils (Bld) [#/Vol] 0.09 10*3/uL Normal <0.46 [facility] Comment on above: Order Comment: Speci men Type: BLOOD SPECIMENOrdering Facility: [facility] Address: [address] [place] [address] Performed By: #### 5 7021-8 ####[facility] MAURYWNCLIA [id number] [place] [address] [place] Eosinophils/100 WBC (Bld) 1.6 % Normal [facility] Comment on above: Order Comment: Speci men Type: BLOOD SPECIMENOrdering Facility: [facility] Address: [address] [place] [address] Performed By: #### 5 7021-8 ####[facility] HOSPITALCARLOSLIA [id number] [place] [address] [place] Erythrocyte distribution width (RBC) [Ratio] 14.6 % Normal 11.5-15.0 [facility] Comment on above: Order Comment: Speci men Type: BLOOD SPECIMENOrdering Facility: [facility] Address: [address] [place] [address] Performed By: #### 5 7021-8 ####[facility] HOSPITALCARLOSINTERMOUNTAIN MEDICAL CENTER [id number] [place] [address] [place] Hematocrit (Bld) [Volume fraction] 35.1 % Low 36.0-46.0 [facility] Comment on above: Order Comment: Speci men Type: BLOOD SPECIMENOrdering Facility: [facility] Address: [address] [place] [address] Performed By: #### 5 7021-8 ####[facility] HOSPITALCARLOSLIA [id number] [place] [address] [place] Hemoglobin (Bld) [Mass/Vol] 11.8 g/dL Normal 11.5-15.5 [facility] Comment on above: Order Comment: Speci men Type: BLOOD SPECIMENOrdering Facility: [facility] Address: [address] [place] [address] Performed By: #### 5 7021-8 ####[facility]INC[facility] HOSPITALNCLIA [id number] [place] [address] [place] Immature granulocytes (Bld) [#/Vol] 10*3/uL Normal <0.10 [facility] Comment on above: Order Comment: Speci men Type: BLOOD SPECIMENOrdering Facility: [facility] Address: [address] [place] [address] Performed By: #### 5 7021-8 ####[facility] POINCIA[facility] HOSPITALNCA [id number] [place] [address] [place] Immature granulocytes/100 WBC (Bld) 0.2 % Normal [facility] Comment on above: Order Comment: Speci men Type: BLOOD SPECIMENOrdering Facility: [facility] Address: [address] [place] [address] Performed By: #### 5 7021-8 ####[facility] [id number] [place] [address] [place] Lymphocytes (Bld) [#/Vol] 1.40 10*3/uL Normal 1.00-4.00 [facility] Comment on above: Order Comment: Speci men Type: BLOOD SPECIMENOrdering Facility: [facility] Address: [address] [place] [address] Performed By: #### 5 7021-8 ####[facility] [id number] [place] [address] [place] Lymphocytes/100 WBC (Bld) 25.2 % Normal [facility] Comment on above: Order Comment: Speci men Type: BLOOD SPECIMENOrdering Facility: [facility] Address: [address] [place] [address] Performed By: #### 5 7021-8 ####[facility] [id number] [place] [address] [place] MCH (RBC) [Entitic mass] 28.6 pg Normal 26.0-34.0 [facility] Comment on above: Order Comment: Speci men Type: BLOOD SPECIMENOrdering Facility: [facility] Address: [address] [place] [address] Performed By: #### 5 7021-8 ####[facility] FATOU [id number] [place] [address] [place] MCHC (RBC) [Mass/Vol] 33.6 g/dL Normal 30.5-36.0 [facility] Comment on above: Order Comment: Speci men Type: BLOOD SPECIMENOrdering Facility: [facility] Address: [address] [place] [address] Performed By: #### 5 7021-8 ####[facility]INCIA[facility] HOSPITALNCSADAF [id number] [place] [address] [place] MCV (RBC) [Entitic vol] 85.2 fL Normal 80.0-100.0 [facility] Comment on above: Order Comment: Speci men Type: BLOOD SPECIMENOrdering Facility: [facility] Address: [address] [place] [address] Performed By: #### 5 7021-8 ####[facility]INCIA[facility] HOSPITALNCA [id number] [place] [address] [place] Monocytes (Bld) [#/Vol] 0.39 10*3/uL Normal <0.87 [facility] Comment on above: Order Comment: Speci men Type: BLOOD SPECIMENOrdering Facility: [facility] Address: [address] [place] [address] Performed By: #### 5 7021-8 ####[facility] HOSPITALNCLIA [id number] [place] [address] [place] Monocytes/100 WBC (Bld) 7.0 % Normal [facility] Comment on above: Order Comment: Speci men Type: BLOOD SPECIMENOrdering Facility: [facility] Address: [address] [place] [address] Performed By: #### 5 7021-8 ####[facility] HOSPITALWNCLIA [id number] [place] [address] [place] Neutrophils (Bld) [#/Vol] 3.63 10*3/uL Normal 1.45-7.50 [facility] Comment on above: Order Comment: Speci men Type: BLOOD SPECIMENOrdering Facility: [facility] Address: [address] [place] [address] Performed By: #### 5 7021-8 ####PEOPLES HOSPITALLIA [id number] [place] [address] [place] Neutrophils/100 WBC (Bld) 65.3 % Normal [facility] Comment on above: Order Comment: Speci men Type: BLOOD SPECIMENOrdering Facility: [facility] Address: [address] [place] [address] Performed By: #### 5 7021-8 ####[facility] [id number] [place] [address] [place] Nucleated RBC (Bld) [#/Vol] 10*3/uL Normal <0.01 [facility] Comment on above: Order Comment: Speci men Type: BLOOD SPECIMENOrdering Facility: [facility] Address: [address] [place] [address] Performed By: #### 5 7021-8 ####[facility] [id number] [place] [address] [place] Nucleated RBC/100 WBC (Bld) [Ratio] 0.0 /100 WBC Normal [facility] Comment on above: Order Comment: Speci men Type: BLOOD SPECIMENOrdering Facility: [facility] Address: [address] [place] [address] Performed By: #### 5 7021-8 ####[facility] HOSPITALNCLI [id number] [place] [address] [place] Platelet mean volume (Bld) [Entitic vol] 10.0 fL Normal 9.0-12.7 [facility] Comment on above: Order Comment: Speci men Type: BLOOD SPECIMENOrdering Facility: [facility] Address: [address] [place] [address] Performed By: #### 5 7021-8 ####[facility] HOSPITALNCINTERMOUNTAIN MEDICAL CENTER [id number] [place] [address] [place] Platelets (Bld) [#/Vol] 192 10*3/uL Normal 150-400 [facility] Comment on above: Order Comment: Speci men Type: BLOOD SPECIMENOrdering Facility: [facility] Address: [address] [place] [address] Performed By: #### 5 7021-8 ####[facility] HOSPITALNCINTERMOUNTAIN MEDICAL [facility]ENTER [id number] [place] [address] [place] RBC (Bld) [#/Vol] 4.12 10*6/uL Normal 3.90-5.20 [facility] Comment on above: Order Comment: Speci men Type: BLOOD SPECIMENOrdering Facility: [facility] Address: [address] [place] [address] Performed By: #### 5 7021-8 ####[facility]INC[facility] HOSPITALNCA [id number] [place] [address] [place] WBC (Bld) [#/Vol] 5.56 10*3/uL Normal 3.70-11.00 [facility] Comment on above: Order Comment: Speci men Type: BLOOD SPECIMENOrdering Facility: [facility] Address: [address] [place] [address] Performed By: #### 5 7021-8 ####[facility] HOSPITALNCLIA [id number] [place] [address] [place] Comprehensive metabolic 2000 panelon 08-04-2024 Albumin [Mass/Vol] 4.0 g/dL Normal 3.9-4.9 [facility] Comment on above: Order Comment: Speci men Type: BLOOD SPECIMENOrdering Facility: [facility] Address: [address] [place] [address] Performed By: #### 2 4323-8 ####[facility] SHARAD MAURYWNCLIA [id number] [place] [address] [place] ALP [Catalytic activity/Vol] 67 U/L Normal 34-123 [facility] Comment on above: Order Comment: Speci men Type: BLOOD SPECIMENOrdering Facility: [facility] Address: [address] [place] [address] Performed By: #### 2 4323-8 ####[facility] HOSPITALWNCLIA [id number] [place] [address] [place] ALT [Catalytic activity/Vol] 16 U/L Normal 7-38 [facility] Comment on above: Order Comment: Speci men Type: BLOOD SPECIMENOrdering Facility: [facility] Address: [address] [place] [address] Performed By: #### 2 4323-8 ####[facility]OSPITALLIA [id number] [place] [address] [place] Anion gap [Moles/Vol] 9 mmol/L Normal 8-15 [facility] Comment on above: Order Comment: Speci men Type: BLOOD SPECIMENOrdering Facility: [facility] Address: [address] [place] [address] Performed By: #### 2 4323-8 ####[facility] SHARAD MILLTOWNCLIA [id number] [place] [address] [place] AST [Catalytic activity/Vol] 22 U/L Normal 13-35 [facility] Comment on above: Order Comment: Speci men Type: BLOOD SPECIMENOrdering Facility: [facility] Address: [address] [place] [address] Performed By: #### 2 4323-8 ####[facility] MILLTOWNCLIA [id number] [place] [address] [place] Bilirubin [Mass/Vol] 0.3 mg/dL Normal 0.2-1.[address] [facility] Comment on above: Order Comment: Speci men Type: BLOOD SPECIMENOrdering Facility: [facility] Address: [address] [place] [address] Performed By: #### 2 4323-8 ####[facility] MILLTOWNCLIA [id number] [place] [address] [place] Calcium [Mass/Vol] 9.3 mg/dL Normal 8.5-10.2 [facility] Comment on above: Order Comment: Speci men Type: BLOOD SPECIMENOrdering Facility: [facility] Address: [address] [place] [address] Performed By: #### 2 4323-8 ####[facility] HOSPITALWNCLIA [id number] [place] [address] [place] Chloride [Moles/Vol] 105 mmol/L Normal 98-[address] [facility] Comment on above: Order Comment: Speci men Type: BLOOD SPECIMENOrdering Facility: [facility] Address: [address] [place] [address] Performed By: #### 2 4323-8 ####[facility] MILLTOWNCLIA [id number] [place] [address] [place] CO2 [Moles/Vol] 27 mmol/L Normal 22-30 [facility] Comment on above: Order Comment: Speci men Type: BLOOD SPECIMENOrdering Facility: [facility] Address: [address] [place] [address] Performed By: #### 2 4323-8 ####[facility] HOSPITALNCLIA [id number] [place] [address] [place] Creatinine [Mass/Vol] 1.06 mg/dL High 0.58-0.96 [facility] Comment on above: Order Comment: Sunny lynn Type: BLOOD SPECIMENOrdering Facility: [facility] Address: [address] [place] [address] Performed By: #### 2 4323-8 ####[facility] [id number] [place] [address] [place] Creatinine and Glomerular filtration rate.predicted panel (S/P/Bld) 58 mL/min/1.73m??? Low >=60 [facility] Comment on above: Order Comment: Sunny lynn Type: BLOOD SPECIMENOrdering Facility: [facility] Address: [address] [place] [address] Result Comment: Sherlyn mated Glomerular Filtration Rate [...] actual GFR. Performed By: #### 2 4323-8 ####[facility] [id number] [place] [address] [place] Glucose [Mass/Vol] 150 mg/dL High 74-99 [facility] Comment on above: Order Comment: Sunny lynn Type: BLOOD SPECIMENOrdering Facility: [facility] Address: [address] [place] [address] Result Comment: The [place] Diabetes Association (ADA) provides guidance for cutoff [...] Standards of Medical Care in Diabetes 2016, [place] [employer]. Diabetes Care. 2016.39(Suppl 1). Performed By: #### 2 4323-8 ####[facility] SHARAD MENDIOLASHEY [id number] [place] [address] [place] Potassium [Moles/Vol] 4.1 mmol/L Normal 3.7-5.1 [facility] Comment on above: Order Comment: Speci men Type: BLOOD SPECIMENOrdering Facility: [facility] Address: [address] [place] [address] Performed By: #### 2 4323-8 ####[facility]INCIA[facility] HOSPITALNIA [id number] [place] [address] [place] Protein [Mass/Vol] 7.4 g/dL Normal 6.3-8.0 [facility] Comment on above: Order Comment: Speci men Type: BLOOD SPECIMENOrdering Facility: [facility] Address: [address] [place] [address] Performed By: #### 2 4323-8 ####[facility] HOSPITALNIA [id number] [place] [address] [place] Sodium [Moles/Vol] 141 mmol/L Normal 136-144 [facility] Comment on above: Order Comment: Speci men Type: BLOOD SPECIMENOrdering Facility: [facility] Address: [address] [place] [address] Performed By: #### 2 4323-8 ####[facility] HOSPITALCARLOSLIA [id number] [place] [address] [place] Urea nitrogen [Mass/Vol] 30 mg/dL High 7-21 [facility] Comment on above: Order Comment: Speci men Type: BLOOD SPECIMENOrdering Facility: [facility] Address: [address] [place] [address] Performed By: #### 2 4323-8 ####[facility] MILLWMALIA [id number] [place], [place] [address] [place] [address] STATES OF [facility] Anion gap in Serum or Plasma Ordered By: Stanley Nata on 08-03-2024 Anion gap [Moles/Vol] 11 mmol/L - [facility] BUN/creatinine ratioOrdered By: Andrea Nata on 08-03-2024 Urea nitrogen/Creatinine [Mass ratio] 34.2 mg/mg High - [facility] Basic Metabolic Profile (BMP )on 08-03-2024 BUN/CRE 34.2 RATIO High 01-[address] [facility] Comment on above: Performed By: #### L 500.2500 ####[facility] [address] [place], [address] Calcium [Mass/Vol] 9.3 mg/dL Normal 7.6-11.0 [facility] Comment on above: Performed By: #### L 500.2500 ####[facility] [address] [place], [address] Chloride [Moles/Vol] 103 mmol/L Normal 98-108 [facility] Comment on above: Performed By: #### L 500.2500 ####[facility] [address] [place], [address] CO2 [Moles/Vol] 24.7 mmol/L Normal 21.0-32.[address] [facility] Comment on above: Performed By: #### L 500.2500 ####[facility] [address] [place], [address] Creatinine [Mass/Vol] 0.84 mg/dL Normal 0.70-1.20 [facility] Comment on above: Performed By: #### L 500.2500 ####[facility] [address] [place], [address] GAP 11 Normal -[address] [facility] Comment on above: Performed By: #### L 500.2500 ####[facility] [address] [place], [address] GFR/1.73 sq M.predicted among non-blacks MDRD (S/P/Bld) [Vol rate/Area] 77 mL/min/{1.73_m2} Normal >[address] [facility] Comment on above: Result Comment: mL/m in/1.73m2 CKD-EPI Creatinine Equation (2020) Performed By: #### L 500.2500 ####[facility] [address] [place], [address] Glucose [Mass/Vol] 153 mg/dL High 70-99 [facility] Comment on above: Performed By: #### L 500.2500 ####[facility] [address] [place], [address] Potassium [Moles/Vol] 3.9 mmol/L Normal 3.3-5.1 [facility] Comment on above: Result Comment: Hemo lysis present, Results??could be affected. ?? Performed By: #### L 500.2500 ####[facility] [address] [place], [address] Sodium [Moles/Vol] 139 mmol/L Normal 133-145 [facility] Comment on above: Performed By: #### L 500.2500 ####[facility] [address] [place], [address] Urea nitrogen [Mass/Vol] 29 mg/dL High 4-[address] [facility] Comment on above: Performed By: #### L 500.2500 ####[facility] [address] [place], [address] CNOVon 08-03-2024 CNOV Normal [facility] Carbon dioxide, total [Moles /volume] in Central venous bloodOrdered By: Andrea Peace on 08-03-2024 CO2 [Moles/Vol] 24.7 mmol/L 21.0-32.[address] [facility] Chloride assayOrdered By: Silvino edwards Nata on 08-03-2024 Chloride [Moles/Vol] 103 mmol/L 98-108 [facility] Glomerular filtration rate ( GFR) estimation/1.73 sq m using serum, plasma, or whole bOrdered By: Andrea Nata on 08-03-2024 GFR/1.73 sq M.predicted among non-blacks MDRD (S/P/Bld) [Vol rate/Area] 77 mL/min/{1.73_m2} >[address] [facility] Comment on above: mL/min/1.73m2 CKD-EP I Creatinine Equation (2020) Potassium measurement (mass/ volume)Ordered By: Andrea Peace on 08-03-2024 Potassium (Unsp spec) [Mass/Vol] 3.9 mmol/L 3.3-5.[address] [facility] Comment on above: Hemolysis present, R esults could be affected. Serum creatinine measurement (mass/volume)Ordered By: Andrea Peace on 08-03-2024 Creatinine [Mass/Vol] 0.84 mg/dL 0.70-1.20 [facility] Serum glucose measurement (m ass/volume)Ordered By: Andrea Peace on 08-03-2024 Glucose [Mass/Vol] 153 mg/dL High 70-99 [facility] Serum or plasma calcium ashley urement (mass/volume)Ordered By: Andrea Peace on 08-03-2024 Calcium [Mass/Vol] 9.3 mg/dL 7.6-11.0 [facility] Serum or plasma urea nitroge n measurement (mass/volume)Ordered By: Andrea Peace on 08-03-2024 Urea nitrogen [Mass/Vol] 29 mg/dL High 4-[address] [facility] Sodium levelOrdered By: Chicho Peace on 08-03-2024 Sodium [Moles/Vol] 139 mmol/L 133-145 [facility] CNOVon 07-15-2024 CNOV Office Visit (PLASHL ) PAT SORTO ([id number]) 1960 F U[place] Date Time Provider Department 07/15/24 1:00 PM MICKI BUTLER During your visit today, we recorded the following information about you: Temperature 97 degrees Micki Butler APRN.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 07/15/2024 1:31 PM Signed Plastic Surgery Post [...] course of doxycycline that was ordered at [facility]. Hx Radiation Therapy: Yes- completed 12/2017 Hx Chemotherapy: Yes- completed in 2018 Hx of DM, on insulin HBa1c 6.8 recently Wiund culture from 06/25/24 WOUND CULTURE No growth Smear Result No organisms seen No Polymorphonuclear Leukocytes Surgical pathology FINAL DIAGNOSIS 1. 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 Husam Hart in [place] PAST SURGICAL HISTORY Procedure Laterality Date ARTHRP ACETBLR/PROX FEM PROSTC AGRFT/ALGRFT Right 03/20/2019 Hip replacement, total ARTHRP KNE CONDYLEANDPLATU MEDIALANDLAT COMPARTMENTS Left 02/2016 BIOPSY BREAST OPEN INCISIONAL Left 2007 [facility] benign pathology per patient BREAST RECONSTRUCTION Left [...] tablet by mouth at bedtime as needed. [employer] TechnologiesTOUCH ULTRA PLUS TEST strp 1 Each two [...] breast flat (more content not included)... Normal [facility] CNPNon 07-10-2024 CNPN Normal [facility] CNOVSPon 07-09-2024 CNOVSP Normal [facility] ALBUMIN/CREATININE RATIO, UR INEon 07-08-2024 Albumin DL <= 20 mg/L (U) [Mass/Vol] 86.8 mg/L Normal [facility] Comment on above: Order Comment: Speci men Type: URINE SPECIMENOrdering Facility: [facility] Address: [address] [place] [address] Performed By: #### U ACR ####[facility] LABCLIA [id number] [place] [address] [place] Albumin/Creatinine (U) [Mass ratio] 61 mg/g High <30 [facility] Comment on above: Order Comment: Speci men Type: URINE SPECIMENOrdering Facility: [facility] Address: [address] [place] [address] Result Comment: Adul t Male and Female Nephrotic Criteria:<30 mg/g is considered normal to mildly kmxmujght91-285 mg/g is considered moderately increased>300 mg/g is considered severely increasedKDIGO. (2013). KDIGO 2012 Clinical Practice Guideline for the Evaluation and Management of Chronic Kidney Disease. Official Journal of the International Society of Nephrology, 3(1), 1-150. Performed By: #### U ACR ####[facility] LABCLIA [id number] [place] [address] [place] Creatinine (U) [Mass/Vol] 143.0 mg/dL Normal 20.0-300.0 [facility] Comment on above: Order Comment: Speci men Type: URINE SPECIMENOrdering Facility: [facility] Address: [address] [place] [address] Performed By: #### U ACR ####[facility] LABCLIA [id number] [place] [address] [place] CBC W Auto Differential pane l (Bld)on 07-08-2024 Basophils (Bld) [#/Vol] 0.04 10*3/uL Normal <0.11 [facility] Comment on above: Order Comment: Speci men Type: BLOOD SPECIMENOrdering Facility: [facility] Address: [address] [place] [address] Performed By: #### 5 7021-8 ####[facility] [id number] [place] [address] [place] Basophils/100 WBC (Bld) 0.6 % Normal [facility] Comment on above: Order Comment: Speci men Type: BLOOD SPECIMENOrdering Facility: [facility] Address: [address] [place] [address] Performed By: #### 5 7021-8 ####[facility] [id number] [place] [address] [place] Differential cell count method Nom (Bld) Auto Normal [facility] Comment on above: Order Comment: Speci men Type: BLOOD SPECIMENOrdering Facility: [facility] Address: [address] [place] [address] Performed By: #### 5 7021-8 ####[facility]PITALA [id number] [place] [address] [place] Eosinophils (Bld) [#/Vol] 0.09 10*3/uL Normal <0.46 [facility] Comment on above: Order Comment: Speci men Type: BLOOD SPECIMENOrdering Facility: [facility] Address: [address] [place] [address] Performed By: #### 5 7021-8 ####[facility] SHARAD LAINEZ [id number] [place] [address] [place] Eosinophils/100 WBC (Bld) 1.4 % Normal [facility] Comment on above: Order Comment: Speci men Type: BLOOD SPECIMENOrdering Facility: [facility] Address: [address] [place] [address] Performed By: #### 5 7021-8 ####[facility] FLORESITAYISSELKey [id number] [place] [address] [place] Erythrocyte distribution width (RBC) [Ratio] 14.9 % Normal 11.5-15.0 [facility] Comment on above: Order Comment: Speci men Type: BLOOD SPECIMENOrdering Facility: [facility] Address: [address] [place] [address] Performed By: #### 5 7021-8 ####[facility] MAURYPASO ROBLESYISSELA [id number] [place] [address] [place] Hematocrit (Bld) [Volume fraction] 38.7 % Normal 36.0-46.0 [facility] Comment on above: Order Comment: Speci men Type: BLOOD SPECIMENOrdering Facility: [facility] Address: [address] [place] [address] Performed By: #### 5 7021-8 ####[facility] MAURYPASO ROBLESCARLOSLIA [id number] [place] [address] [place] Hemoglobin (Bld) [Mass/Vol] 13.3 g/dL Normal 11.5-15.5 [facility] Comment on above: Order Comment: Speci men Type: BLOOD SPECIMENOrdering Facility: [facility] Address: [address] [place] [address] Performed By: #### 5 7021-8 ####[facility] MILLWNCLIA [id number] [place] [address] [place] Immature granulocytes (Bld) [#/Vol] 10*3/uL Normal <0.10 [facility] Comment on above: Order Comment: Speci men Type: BLOOD SPECIMENOrdering Facility: [facility] Address: [address] [place] [address] Performed By: #### 5 7021-8 ####[facility]OSPITALLIA [id number] [place] [address] [place] Immature granulocytes/100 WBC (Bld) 0.2 % Normal [facility] Comment on above: Order Comment: Speci men Type: BLOOD SPECIMENOrdering Facility: [facility] Address: [address] [place] [address] Performed By: #### 5 7021-8 ####[facility]ITALA [id number] [place] [address] [place] Lymphocytes (Bld) [#/Vol] 1.72 10*3/uL Normal 1.00-4.00 [facility] Comment on above: Order Comment: Speci men Type: BLOOD SPECIMENOrdering Facility: [facility] Address: [address] [place] [address] Performed By: #### 5 7021-8 ####[facility]PITALLIA [id number] [place] [address] [place] Lymphocytes/100 WBC (Bld) 27.4 % Normal [facility] Comment on above: Order Comment: Speci men Type: BLOOD SPECIMENOrdering Facility: [facility] Address: [address] [place] [address] Performed By: #### 5 7021-8 ####[facility]ITALA [id number] [place] [address] [place] MCH (RBC) [Entitic mass] 28.7 pg Normal 26.0-34.0 [facility] Comment on above: Order Comment: Speci men Type: BLOOD SPECIMENOrdering Facility: [facility] Address: [address] [place] [address] Performed By: #### 5 7021-8 ####[facility] [id number] [place] [address] [place] MCHC (RBC) [Mass/Vol] 34.4 g/dL Normal 30.5-36.0 [facility] Comment on above: Order Comment: Speci men Type: BLOOD SPECIMENOrdering Facility: [facility] Address: [address] [place] [address] Performed By: #### 5 7021-8 ####[facility]ITALNCINTERM[facility] [id number] [place] [address] [place] MCV (RBC) [Entitic vol] 83.4 fL Normal 80.0-100.0 [facility] Comment on above: Order Comment: Speci men Type: BLOOD SPECIMENOrdering Facility: [facility] Address: [address] [place] [address] Performed By: #### 5 7021-8 ####[facility]ITALNCINTERMOUNTAIN [facility] [id number] [place] [address] [place] Monocytes (Bld) [#/Vol] 0.44 10*3/uL Normal <0.87 [facility] Comment on above: Order Comment: Speci men Type: BLOOD SPECIMENOrdering Facility: [facility] Address: [address] [place], [place] [address] Performed By: #### 5 7021-8 ####[facility]ITALNCINTERMOUNTAIN [facility] [id number] [place] [address] [place] Monocytes/100 WBC (Bld) 7.0 % Normal [facility] Comment on above: Order Comment: Speci men Type: BLOOD SPECIMENOrdering Facility: [facility] Address: [address] [place] [address] Performed By: #### 5 7021-8 ####[facility] [id number] [place] [address] [place] Neutrophils (Bld) [#/Vol] 3.98 10*3/uL Normal 1.45-7.50 [facility] Comment on above: Order Comment: Speci men Type: BLOOD SPECIMENOrdering Facility: [facility] Address: [address] [place] [address] Performed By: #### 5 7021-8 ####[facility] [id number] [place] [address] [place] Neutrophils/100 WBC (Bld) 63.4 % Normal [facility] Comment on above: Order Comment: Speci men Type: BLOOD SPECIMENOrdering Facility: [facility] Address: [address] [place] [address] Performed By: #### 5 7021-8 ####[facility] [id number] [place] [address] [place] Nucleated RBC (Bld) [#/Vol] 10*3/uL Normal <0.01 [facility] Comment on above: Order Comment: Speci men Type: BLOOD SPECIMENOrdering Facility: [facility] Address: [address] [place] [address] Performed By: #### 5 7021-8 ####[facility]OSPITALLIA [id number] [place] [address] [place] Nucleated RBC/100 WBC (Bld) [Ratio] 0.0 /100 WBC Normal [facility] Comment on above: Order Comment: Speci men Type: BLOOD SPECIMENOrdering Facility: [facility] Address: [address] [place] [address] Performed By: #### 5 7021-8 ####[facility] HOSPITALNCLIA [id number] [place] [address] [place] Platelet mean volume (Bld) [Entitic vol] 11.1 fL Normal 9.0-12.7 [facility] Comment on above: Order Comment: Speci men Type: BLOOD SPECIMENOrdering Facility: [facility] Address: [address] [place] [address] Performed By: #### 5 7021-8 ####[facility] HOSPITALNCLIA [id number] [place] [address] [place] Platelets (Bld) [#/Vol] 152 10*3/uL Normal 150-400 [facility] Comment on above: Order Comment: Speci men Type: BLOOD SPECIMENOrdering Facility: [facility] Address: [address] [place] [address] Result Comment: No c lot detected. Performed By: #### 5 7021-8 ####[facility]A [id number] [place] [address] [place] RBC (Bld) [#/Vol] 4.64 10*6/uL Normal 3.90-5.20 [facility] Comment on above: Order Comment: Speci men Type: BLOOD SPECIMENOrdering Facility: [facility] Address: [address] [place] [address] Performed By: #### 5 7021-8 ####[facility]ITALNCLIA [id number] [place] [address] [place] WBC (Bld) [#/Vol] 6.28 10*3/uL Normal 3.70-11.00 [facility] Comment on above: Order Comment: Speci men Type: BLOOD SPECIMENOrdering Facility: [facility] Address: [address] [place] [address] Performed By: #### 5 7021-8 ####[facility]OSPITALNCLIA [id number] [place] [address] [place] Comprehensive metabolic 2000 panelon 07-08-2024 Albumin [Mass/Vol] 4.1 g/dL Normal 3.9-4.9 [facility] Comment on above: Order Comment: Speci men Type: BLOOD SPECIMENOrdering Facility: [facility] Address: [address] [place] [address] Performed By: #### 2 4323-8 ####[facility] MILLTOWNCLIA [id number] [place] [address] [place] ALP [Catalytic activity/Vol] 70 U/L Normal 34-123 [facility] Comment on above: Order Comment: Speci men Type: BLOOD SPECIMENOrdering Facility: [facility] Address: [address] [place] [address] Performed By: #### 2 4323-8 ####[facility] MILLWNCLIA [id number] [place] [address] [place] ALT [Catalytic activity/Vol] 12 U/L Normal 7-38 [facility] Comment on above: Order Comment: Speci men Type: BLOOD SPECIMENOrdering Facility: [facility] Address: [address] [place] [address] Performed By: #### 2 4323-8 ####[facility] MILLWNCLIA [id number] [place] [address] [place] Anion gap [Moles/Vol] 8 mmol/L Normal 8-15 [facility] Comment on above: Order Comment: Speci men Type: BLOOD SPECIMENOrdering Facility: [facility] Address: [address] [place] [address] Performed By: #### 2 4323-8 ####[facility] MILLTOWNCLIA [id number] [place] [address] [place] AST [Catalytic activity/Vol] 16 U/L Normal 13-35 [facility] Comment on above: Order Comment: Speci men Type: BLOOD SPECIMENOrdering Facility: [facility] Address: [address] [place] [address] Performed By: #### 2 4323-8 ####[facility] SHARAD CANASYISSELA [id number] [place] [address] [place] Bilirubin [Mass/Vol] 0.3 mg/dL Normal 0.2-1.[address] [facility] Comment on above: Order Comment: Speci men Type: BLOOD SPECIMENOrdering Facility: [facility] Address: [address] [place] [address] Performed By: #### 2 4323-8 ####[facility]PITALROMELIA [id number] [place] [address] [place] Calcium [Mass/Vol] 9.6 mg/dL Normal 8.5-10.2 [facility] Comment on above: Order Comment: Speci men Type: BLOOD SPECIMENOrdering Facility: [facility] Address: [address] [place] [address] Performed By: #### 2 4323-8 ####[facility] MAURYPASO ROBLESYISSELA [id number] [place] [address] [place] Chloride [Moles/Vol] 99 mmol/L Normal 98-[address] [facility] Comment on above: Order Comment: Speci men Type: BLOOD SPECIMENOrdering Facility: [facility] Address: [address] [place] [address] Performed By: #### 2 4323-8 ####[facility]ITALWNCLIA [id number] [place] [address] [place] CO2 [Moles/Vol] 28 mmol/L Normal 22-30 [facility] Comment on above: Order Comment: Speci men Type: BLOOD SPECIMENOrdering Facility: [facility] Address: [address] [place] [address] Performed By: #### 2 4323-8 ####[facility]ITALWNCLIA [id number] [place] [address] [place] Creatinine [Mass/Vol] 1.16 mg/dL High 0.58-0.96 [facility] Comment on above: Order Comment: Speci men Type: BLOOD SPECIMENOrdering Facility: [facility] Address: [address] [place] [address] Performed By: #### 2 4323-8 ####[facility]OSPITALLI [id number] [place] [address] [place] Creatinine and Glomerular filtration rate.predicted panel (S/P/Bld) 52 mL/min/1.73m??? Low >=60 [facility] Comment on above: Order Comment: Speci [facility] Type: BLOOD SPECIMENOrdering Facility: [facility] Address: [address] [place] [address] Result Comment: Sherlyn mated Glomerular Filtration Rate [...] Performed By: #### 2 4323-8 ####[facility]ITALNCLIA [id number] [place] [address] [place] Glucose [Mass/Vol] 216 mg/dL High 74-99 [facility] Comment on above: Order Comment: Speci men Type: BLOOD SPECIMENOrdering Facility: [facility] Address: [address] [place] [address] Result Comment: The [place] Diabetes Association (ADA) provides guidance for cutoff [...] Standards of Medical Care in Diabetes 2016, [place] Diabetes Association. Diabetes Care. 2016.39(Suppl 1). Performed By: #### 2 4323-8 ####[facility] MILLTOWNCLIA [id number] [place] [address] [place] Potassium [Moles/Vol] 4.0 mmol/L Normal 3.7-5.1 [facility] Comment on above: Order Comment: Kourtneyi men Type: BLOOD SPECIMENOrdering Facility: [facility] Address: [address] [place] [address] Performed By: #### 2 4323-8 ####[facility]ITALLIA [id number] [place] [address] [place] Protein [Mass/Vol] 7.7 g/dL Normal 6.3-8.0 [facility] Comment on above: Order Comment: Kourtneyi leah Type: BLOOD SPECIMENOrdering Facility: [facility] Address: [address] [place] [address] Performed By: #### 2 4323-8 ####[facility]ITALLIA [id number] [place] [address] [place] Sodium [Moles/Vol] 135 mmol/L Low 136-144 [facility] Comment on above: Order Comment: Speci men Type: BLOOD SPECIMENOrdering Facility: [facility] Address: [address] [place] [address] Performed By: #### 2 4323-8 ####[facility]ITALLIA [id number] [place] [address] [place] Urea nitrogen [Mass/Vol] 45 mg/dL High 7-21 [facility] Comment on above: Order Comment: Sunny lynn Type: BLOOD SPECIMENOrdering Facility: [facility] Address: [address] [place] [address] Performed By: #### 2 4323-8 ####[facility] SHARAD ELLSWORTHNIA [id number] [place] [address] [place] HbA1c (Bld)on 07-08-2024 Average glucose Estimated from glycated hemoglobin (Bld) [Mass/Vol] 148 mg/dL Normal [facility] Comment on above: Order Comment: Sunny lynn Type: BLOOD SPECIMENOrdering Facility: [facility] Address: [address] [place] [address] Result Comment: eAG: (Estimated average glucose) is a calculated value from HgbA1c and is senior customer service representative of the average blood glucose level in the last 2-3 month period. Performed By: #### 5 5454-3 ####[facility] LABCLIA [id number] [address] [place] HbA1c (Bld) [Mass fraction] 6.8 % High 4.3-5.6 [facility] Comment on above: Order Comment: Sunny lynn Type: BLOOD SPECIMENOrdering Facility: [facility] Address: [address] [place] [address] Result Comment: Amer [place] Diabetes Association guidelines indicate that patients with HgbA1c in the range 5.7-6.4% are at increased risk for development of diabetes, and intervention by lifestyle modification may be beneficial. HgbA1c greater or equal to 6.5% is considered diagnostic of diabetes. Performed By: #### 5 5454-3 ####[facility] LABCLIA [id number] [place] [address] [place] LIPID PANEL, NONFASTINGon Cholesterol [Mass/Vol] 247 mg/dL High <200 [facility] Comment on above: Order Comment: Sunyn lynn Type: BLOOD SPECIMENOrdering Facility: [facility] Address: [address] [place] [address] Result Comment: <200 mg/dL, Desirable 200-239 mg/dL, Borderline high>239 mg/dL, High Performed By: #### L IPNF ####[facility] LABCLIA [id number] [address] OF [facility] HDL CHOLESTEROL, NF 39 mg/dL Low >39 [facility] Comment on above: Order Comment: Speci men Type: BLOOD SPECIMENOrdering Facility: [facility] Address: [address] [place] [address] Result Comment: 40-5 9 mg/dL, Acceptable>59 mg/dL, High: Negative risk factor for coronary heart disease<40 mg/dL, Low: Positive risk factor for coronary heart disease Performed By: #### L IPNF ####[facility] LABCLIA [id number] [address] LDL CHOLESTEROL, NF 162 mg/dL High <100 [facility] Comment on above: Order Comment: Sunny [facility] Type: BLOOD SPECIMENOrdering Facility: [facility] Address: [address] [place] [address] Result Comment: <100 mg/dL, Optimal 100-129 mg/dL, Near optimal/above optimal 130-159 mg/dL, Borderline high 160-189 mg/dL, High>189 mg/dL, Very highSecondary prevention optimal LDL Cholesterol levels are recommended to be < 70 mg/dL Performed By: #### L IPNF ####[facility] LABCLIA [id number] [address] OF [facility] LDL/HDL RATIO, NF 4.15 mg/dL High <2.54 [facility] Comment on above: Order Comment: Sunny [facility] Type: BLOOD SPECIMENOrdering Facility: [facility] Address: [address] [place] [address] Result Comment: Refe rence:1. National Cholesterol Education Program ATP III Guideline At-A-Glance Quick Desk Reference: National Heart, Lung, and Blood Friend. National Institutes of Health. 2001: NIH Publication No. 01-3305.2. An International Atherosclerosis Society position paper: global recommendations for the management of dyslipidemia: executive summary, Atherosclerosis. 2014: 232(2):410-413. Performed By: #### L IPNF ####[facility] LABCLIA [id number] [address] [place] NON HDL CHOL, NF 208 mg/dL High <130 [facility] Comment on above: Order Comment: Sunny lynn Type: BLOOD SPECIMENOrdering Facility: [facility] Address: [address] [place] [address] Result Comment: <130 mg/dL, Optimal 130-159 mg/dL, Near optimal/above optimal 160-189 mg/dL, Borderline high 190-219 mg/dL, High>219 mg/dL, Very highSecondary prevention optimal non HDL Cholesterol levels are recommended to be <100 mg/dL Performed By: #### L IPNF ####[facility] LABCLIA [id number] [address] OF [facility] T CHOL/HDL RATIO NF 6.33 mg/dL High <5.10 [facility] Comment on above: Order Comment: Sunny lynn Type: BLOOD SPECIMENOrdering Facility: [facility] Address: [address] [place] [address] Performed By: #### L IPNF ####[facility] LABCLIA [id number] [place] [address] [place] TRIGLYCERIDES, NF 230 mg/dL High <150 [facility] Comment on above: Order Comment: Sunny lynn Type: BLOOD SPECIMENOrdering Facility: [facility] Address: [address] [place] [address] Result Comment: <150 mg/dL, Normal 150-199 mg/dL, Borderline high 200-499 mg/dL, High>499 mg/dL, Very high Performed By: #### L IPNF ####[facility] LABCLIA [id number] [address] [place] VLDL CHOLESTEROL, NF 46 mg/dL High <[address] [facility] Comment on above: Order Comment: Speci men Type: BLOOD SPECIMENOrdering Facility: [facility] Address: [address] [place] [address] Performed By: #### L IPNF ####[facility] LABCLIA [id number] LILICan VEGA [id number] [place] [address] [place] US THYROID/PARATHYROIDon US THYROID/PARATHYROID Normal [facility] CNPNon 07-07-2024 CNPN Normal [facility] CNOVon 07-06-2024 CNOV Normal [facility] Cardiology Visit Reporton Cardiology Visit Report [facility] [address] [place], [place] [address] OFFICE VISIT Date of Service: 07/02/24 MR#: [id number] Acct: [id number] Name: PAT SORTO Rep #: [id number] : 1960 Provider: Dr. Andrea Peace MD Age/Sex: 64/F Location: [facility] Status: Signed HPI HPI History of [...] Source Monitor Intake Visit Reasons: 8 M Branch Officer Required: No Accompanied by: Self Is patient [...] and we (more content not included)... Normal [facility] GLUCOSE, BLOOD (POC)on 06-30 Glucose [Mass/Vol] 134 mg/dL Abnormal 74 - 99 mg/dL [facility] Comment on above: Location:[facility] [place], [place], [address] The Accu-Chek Inform II glucose meter has [...] Interpretation and review of laboratory results Abnormal [facility] NM PET/CT SKULL-THIGH SUBQon 06-30-2024 [...] * Uptake Time: 54 minutes * Radiopharmaceutical: L05-Nlgemwocwvjxigpiwo (FDG) COMPARISON: 06/30/2024 CORRELATION: No relevant prior [...] recently performed. * Chronic changes, as described. Tape Rules Printing Machine Operator: PSCMark Anthony Transcribe Date/Time: Jul 01 2024 10:58P Dictated by : LAMIN HARRINGTON MD This examination was interpreted and the report reviewed and electronically signed by: LAMIN HARRINGTON MD on Jul 02 2024 12:27AM EST [id number] Normal [facility] Bacteria Wnd Culton 06-26-19 25 Bacteria identified Cx Nom (Wound) CULTURE, WOUND: No growth GRAM STAIN: No organisms seen No Polymorphonuclear Leukocytes Normal [facility] Comment on above: Performed By: #### 6 462-6 ####[facility] LABCLIA [id number] [place] [address] [place] CNOVon 06-25-2024 CNOV Normal [facility] CNOVon 06-05-2024 CNOV Normal [facility] CNOVon 06-04-2024 CNOV Normal [facility] Basic metabolic 2000 panelon 06-03-2024 Anion gap [Moles/Vol] 11 mmol/L Normal 8-15 [facility] Comment on above: Order Comment: Speci men Type: BLOOD SPECIMENOrdering Facility: [facility] Address: [address] [place] [address] Performed By: #### 2 4321-2 ####[facility] [id number] [place] [address] [place] Calcium [Mass/Vol] 10.1 mg/dL Normal 8.5-10.2 [facility] Comment on above: Order Comment: Speci men Type: BLOOD SPECIMENOrdering Facility: [facility] Address: [address] [place] [address] Performed By: #### 2 4321-2 ####[facility] [id number] [place] [address] [place] Chloride [Moles/Vol] 104 mmol/L Normal 98-[address] [facility] Comment on above: Order Comment: Speci men Type: BLOOD SPECIMENOrdering Facility: [facility] Address: [address] [place] [address] Performed By: #### 2 4321-2 ####[facility] SENGWNCLIA [id number] [place] [address] [place] CO2 [Moles/Vol] 27 mmol/L Normal 22-30 [facility] Comment on above: Order Comment: Speci men Type: BLOOD SPECIMENOrdering Facility: [facility] Address: [address] [place] [address] Performed By: #### 2 4321-2 ####[facility]ITALNCLIA [id number] [place] [address] [place] Creatinine [Mass/Vol] 1.15 mg/dL High 0.58-0.96 [facility] Comment on above: Order Comment: Speci men Type: BLOOD SPECIMENOrdering Facility: [facility] Address: [address] [place] [address] Performed By: #### 2 4321-2 ####[facility]ITALNCLIA [id number] [address] Creatinine and Glomerular filtration rate.predicted panel (S/P/Bld) 53 mL/min/1.73m??? Low >=60 [facility] Comment on above: Order Comment: Speci men Type: BLOOD SPECIMENOrdering Facility: [facility] Address: [address] [place] [address] Result Comment: Sherlyn mated Glomerular Filtration Rate [...] actual GFR. Performed By: #### 2 4321-2 ####[facility]ITALWNCLIA [id number] [place] [address] [place] Glucose [Mass/Vol] 103 mg/dL High 74-99 [facility] Comment on above: Order Comment: Speci men Type: BLOOD SPECIMENOrdering Facility: [facility] Address: [address] [place] [address] Result Comment: The [place] Diabetes Association (ADA) provides guidance for cutoff [...] Standards of Medical Care in Diabetes 2016, [place] Diabetes Association. Diabetes Care. 2016.39(Suppl 1). Performed By: #### 2 4321-2 ####[facility]ITALNCLIA [id number] [place] [address] [place] Potassium [Moles/Vol] 4.0 mmol/L Normal 3.7-5.1 [facility] Comment on above: Order Comment: Speci men Type: BLOOD SPECIMENOrdering Facility: [facility] Address: [address] [place] [address] Performed By: #### 2 4321-2 ####[facility]ITALWNCLIA [id number] [place] [address] [place] Sodium [Moles/Vol] 142 mmol/L Normal 136-144 [facility] Comment on above: Order Comment: Speci men Type: BLOOD SPECIMENOrdering Facility: [facility] Address: [address] [place], [place] [address] Performed By: #### 2 4321-2 ####[facility]ITALWNCLIA [id number] [place] [address] [place] Urea nitrogen [Mass/Vol] 27 mg/dL High 7-21 [facility] Comment on above: Order Comment: Speci men Type: BLOOD SPECIMENOrdering Facility: [facility] Address: [address] [place] [address] Performed By: #### 2 4321-2 ####[facility] [id number] [place] [address] [place] TSH SerPl-aCncon 06-03-2024 TSH Qn 2.770 m[IU]/L Normal 0.270-4.20 0 [facility] Comment on above: Order Comment: Speci men Type: BLOOD SPECIMENOrdering Facility: [facility] Address: [address] [place] [address] Performed By: #### 3 016-3 ####[facility] LABORATORYCLIA [id number] [place] [id number] [place] CNOVon 05-29-2024 CNOV Normal [facility] CNOVon 05-27-2024 CNOV Normal [facility] CNCOon 05-26-2024 CNCO Letter Text Normal [facility] CNOVon 05-26-2024 CNOV Normal [facility] CNPNon 05-26-2024 CNPN Normal [facility] CNOVon 05-25-2024 CNOV Normal [facility] 12 Lead EKGon 05-21-2024 12 Lead EKG [facility] [address] [place] [address] 12 Lead EKG 05/21/24 1155 MR#: [id number] Acct: [id number] Name: PAT SORTO Rep #: [id number] : 1960 64 From: Jada Manuel MD [...] Borderline ECG Confirmed by EDUARDO NARAYAN, MIKAELA ([id number]), publication editor SERENITY CARLSON ([id number]) on 05/25/2024 8:06:33 AM Referred By: Confirmed By: MIKAELA MANUEL MD 05/25/24 0806 Date Jada Manuel MD CC: Dr. Jacinta Rivas MD; Dr. Rai Sterling DO Signed Normal [facility] Basic Metabolic Profile (BMP )on 05-21-2024 BUN/CRE 18.3 RATIO Normal 10-[address] [facility] Comment on above: Performed By: #### L 500.4050, L100.0100 #### [facility] [address] [place], [address] CA,Total 9.2 mg/dL Normal 8.5-10.[address] [facility] Comment on above: Performed By: #### L 500.4050, L100.0100 #### [facility] [address] [place], [address] Chloride [Moles/Vol] 106 mmol/L Normal 98-107 [facility] Comment on above: Performed By: #### L 500.4050, L100.0100 #### [facility] [address] [place], [address] CO2 [Moles/Vol] 23.0 mmol/L Normal 21.0-32.[address] [facility] Comment on above: Performed By: #### L 500.4050, L100.0100 #### [facility] [address] [place], [address] Creatinine [Mass/Vol] 1.04 mg/dL High 0.55-1.02 [facility] Comment on above: Result Comment: The validity of the calculated GFR GFRAA in patients over 70 years has not been determined. Clinical correlation is essential. Performed By: #### L 500.4050, L100.0100 #### [facility] [address] [place], [address] ECRCL 58.10 ml/min Normal [facility] Comment on above: Performed By: #### L 500.4050, L100.0100 #### [facility] [address] [place], [address] EST GFR - AA 68 mL/min Normal >[address] [facility] Comment on above: Result Comment: Afri can Uzbek GFR Calc Performed By: #### L 500.4050, L100.0100 #### [facility] [address] [place], [address] GAP 8 Normal 5-[address] [facility] Comment on above: Performed By: #### L 500.4050, L100.0100 #### [facility] [address] [place], [address] GFR/1.73 sq M.predicted among non-blacks MDRD (S/P/Bld) [Vol rate/Area] 57 mL/min/{1.73_m2} Low >[address] [facility] Comment on above: Result Comment: Non- GFR Calc Performed By: #### L 500.4050, L100.0100 #### [facility] [address] [place], [address] Glucose [Mass/Vol] 200 mg/dL High 74-106 [facility] Comment on above: Result Comment: Gluc ose result greater than or equal to 200 mg/dL suggests DIABETES MELLITUS per A.D.A. criteria. Performed By: #### L 500.4050, L100.0100 #### [facility] [address] [place], [address] Potassium [Moles/Vol] 3.6 mmol/L Normal 3.5-5.1 [facility] Comment on above: Performed By: #### L 500.4050, L100.0100 #### [facility] [address] [place], [address] Sodium [Moles/Vol] 137 mmol/L Normal 136-145 [facility] Comment on above: Performed By: #### L 500.4050, L100.0100 #### [facility] [address] [place], [address] Urea nitrogen [Mass/Vol] 19 mg/dL High 7-[address] [facility] Comment on above: Performed By: #### L 500.4050, L100.0100 #### [facility] [address] [place], [address] CBC W/Diff, Automatedon -04 10-2024 Absolute Lymph 1.74 X10 3/uL Normal 0.83-4.[address] [facility] Comment on above: Performed By: #### L 500.9400 #### [facility] [address] [place], [address] Absolute Neut 8.2 X10 3/uL High 2.0-7.[address] [facility] Comment on above: Performed By: #### L 500.9400 #### [facility] [address] [place], [address] Basophils/100 WBC (Bld) 0.7 % Normal 0-1 [facility] Comment on above: Performed By: #### L 500.9400 #### [facility] [address] [place], [address] Eosinophils/100 WBC (Bld) 0.5 % Normal 0-[address] [facility] Comment on above: Performed By: #### L 500.9400 #### [facility] [address] [place], [address] Erythrocyte distribution width (RBC) [Ratio] 13.2 % Normal 11.6-14.[address] [facility] Comment on above: Performed By: #### L 500.9400 #### [facility] [address] [place], [address] Hematocrit (Bld) [Volume fraction] 34.0 % Low 37-[address] [facility] Comment on above: Performed By: #### L 500.9400 #### [facility] [address] [place], [address] Hemoglobin (Bld) [Mass/Vol] 10.9 g/dL Low 12.0-15.[address] [facility] Comment on above: Performed By: #### L 500.9400 #### [facility] [address] [place], [address] IG% 1.300 High 0.0-0.[address] [facility] Comment on above: Result Comment: IG% - Immature Granulocytes (promyelocytes, myelocytes and metamyelocytes) > 1% indicates that a LEFT SHIFT is Present. Performed By: #### L 500.9400 #### [facility] [address] [place], [address] Lymphocytes/100 WBC (Bld) 15.6 % Low 19-[address] [facility] Comment on above: Performed By: #### L 500.9400 #### [facility] [address] [place], [address] MCH (RBC) [Entitic mass] 27.1 pg Normal 27.0-32.[address] [facility] Comment on above: Performed By: #### L 500.9400 #### [facility] [address] [place], [address] MCHC (RBC) [Mass/Vol] 32.1 g/dL Normal 32-36 [facility] Comment on above: Performed By: #### L 500.9400 #### [facility] [address] [place], [address] MCV (RBC) [Entitic vol] 84.6 fL Normal 81-99 [facility] Comment on above: Performed By: #### L 500.9400 #### [facility] [address] [place], [address] Monocytes/100 WBC (Bld) 8.9 % Normal 0-10 [facility] Comment on above: Performed By: #### L 500.9400 #### [facility] [address] [place], [address] Neutrophils/100 WBC (Bld) 73.0 % High 47-[address] [facility] Comment on above: Performed By: #### L 500.9400 #### [facility] [address] [place], [address] Nucleated RBC (Bld) [#/Vol] 0 10*3/uL Normal 0-[address] [facility] Comment on above: Performed By: #### L 500.9400 #### [facility] [address] [place], [address] Platelet mean volume (Bld) [Entitic vol] 10.2 fL Normal 6.2-12.[address] [facility] Comment on above: Performed By: #### L 500.9400 #### [facility] [address] [place], [address] Platelets (Bld) [#/Vol] 298 10*3/uL Normal 150-[address] [facility] Comment on above: Performed By: #### L 500.9400 #### [facility] [address] [place], [address] RBC (Bld) [#/Vol] 4.02 10*6/uL Low 4.2-5.4 [facility] Comment on above: Performed By: #### L 500.9400 #### [facility] [address] [place], [address] RDW SD 40.3 fl Normal 35.1-43.[address] [facility] Comment on above: Performed By: #### L 500.9400 #### [facility] [address] [place], [address] WBC (Bld) [#/Vol] 11.2 10*3/uL High 4.4-11.0 [facility] Comment on above: Performed By: #### L 500.9400 #### [facility] [address] [place], [place], [address] CTA Chest W/WO Contraston CTA Chest W/WO Contrast [facility] Imaging Services [address] [place], [place] [address] CTA Chest W/WO Contrast MR#: [id number] Acct: [id number] Name: PAT SORTO Rep #: [id number] : 1960 F 64 From: Wil cox MD PCP: Dr. Jacinta Rivas MD Status: [facility] Study: CTA Chest W/WO Contrast Date of Exam: 05/21/24 Exam# [id number] Ordering Dr: Rai Sterling DO PROCEDURE: CTA [...] use of iterative reconstruction technique). Reading Location: [place] [address] CC: Dr. Jacinta Rivas MD; Dr. Rai Sterling DO Tape Rules Printing Machine Operator: Signed Normal [facility] Chest 1 View (Portable)on Chest 1 View (Portable) [facility] Imaging Services [address] [place] [address] Chest 1 View (Portable) MR#: [id number] Acct: [id number] Name: PAT SORTO Rep #: [id number] : 1960 F 64 From: Garth North PCP: Dr. Jacinta Rivas MD Status: [facility] ER Study: Chest 1 View (Portable) Date of Exam: 05/21/24 Exam# [id number] Ordering Dr: Rai Sterling DO PROCEDURE: CHEST [...] range for age and technique. Reading Location: [address] CC: Dr. Jacinta Rivas MD; Dr. Rai Sterling DO Tape Rules Printing Machine Operator: Signed Normal [facility] D-Dimer Quantitative (DVT/PE )on 05-21-2024 D-DIMER QUANT 1.50 FEU/ug/m Invalid Interpretation Code 0.27-0.[address] [facility] Comment on above: Result Comment: D-Di brii ELEVATED (>0.49): Additional studies and clinical assessments are indicated to conclude diagnosis of: Deep Vein Thrombosis (DVT) or Pulmonary Embolism (PE) CRITICAL VALUE CALLED TO EMILLER 05/21/24 1339 Jabari Buckzano. RESULTS READ BACK BY SAME. Performed By: #### L 300.8000 ####[facility] [id number] [facility], [address] Emergency Department Summary on 05-21-2024 Emergency Department Summary [facility] Medical Records Department [address] [place] [address] Emergency Department Summary 05/21/24 MR#: [id number] Acct: [id number] Name: PAT SORTO Rep #: [id number] : 1960 64 From: Rai Odom PCP: [...] therapy. She is followed by Dr. Carrasco. [facility] Medical History Acute kidney injury Chemotherapy induced [...] Pulse Ox (more content not included)... Normal [facility] Partial Thromboplast Timeon 05-21-2024 aPTT Coag (Bld) [Time] 26.7 s Normal 24.1-36.2 [facility] Comment on above: Performed By: #### L 500.4050, L100.0100 #### [facility] [address] [place], [address] Prothrombin Time w/INRon INR Coag (PPP) [Relative time] 1.0 {INR} Normal [facility] Comment on above: Performed By: #### L 500.4050, L100.0100 #### [facility] [address] [place], [address] PT Coag (PPP) [Time] 13.2 s Normal 11.7-14.9 [facility] Comment on above: Performed By: #### L 500.4050, L100.0100 #### [facility] [address] [place], [address] CNPNon 05-19-2024 CNPN Normal [facility] ANES POSTPROC EVALon 025 ANES POSTPROC EVAL Normal [facility] ANES PRE-OPon 05-18-2024 ANES PRE-OP Normal [facility] BRIEF OP NOTon 05-18-2024 BRIEF OP NOT Normal [facility] GLUCOSE, BLOOD (POC)on 05-18 Glucose [Mass/Vol] 116 mg/dL Abnormal 74 - 99 mg/dL [facility] Comment on above: Location:[facility], [address] [place] [address] The Accu-Chek Inform II glucose meter has [...] Interpretation and review of laboratory results Abnormal [facility] Glucose [Mass/Vol] 130 mg/dL Abnormal 74 - 99 mg/dL [facility] Comment on above: Location:[facility], [address] , [place], [place], [facility] The Accu-Chek Inform II glucose meter has [...] Interpretation and review of laboratory results Abnormal [facility] OPERATIVE NOon 05-18-2024 OPERATIVE NO Normal [facility] OPERATIVE NO Normal [facility] Pathology biopsy report Rommel (Tiss)on 05-18-2024 CASE REPORT Normal [facility] Comment on above: Order Comment: Sunny lynn Type: TISSUE SPECIMENOrdering Facility: [facility] Address: [address] [place] [address] Result Comment: Surg ical Pathology Report Case: [id number] Provider: Micki Marcelino MD Collected: 05/18/2024 11:44 AMOrdering Location: Ambulatory Surgery Received: 05/18/2024 12:56 PMPathologist: David Irene MDSpecimens: A) - Skin, Excision, left chest excision of nodule B) - Breast Implant, Left, left breast implant with capsule C) - Skin, Wide Excision, left breast wide excision inframammory fold recurrence Performed By: #### 6 6121-5 ####[facility] LABCLIA [id number] [place] [address] [place] CLINICAL HISTORY Normal [facility] Comment on above: Order Comment: Sunny lynn Type: TISSUE SPECIMENOrdering Facility: [facility] Address: [address] [place] [address] Result Comment: Pre- op diagnosis:Malignant neoplasm of lower-outer quadrant of left breast of female, estrogen receptor positive (HCC) [C50.512, Z17.0] Performed By: #### 6 6121-5 ####[facility] LABCLIA [id number] [place] [address] [place] DIAGNOSIS COMMENT Normal [facility] Comment on above: Order Comment: Sunny lynn Type: TISSUE SPECIMENOrdering Facility: [facility] Address: [address] [place] [address] Result Comment: Part 1 - Invasive carcinoma [...] in consultation with Dr. Pickens, of the [facility] breast pathology department, who concurs.Laboratory Developed Test (LDT) Disclaimer:Performance characteristics of immunohistochemical, immunofluorescent and chromogenic in-situ hybridization tests have been determined by the performing laboratory within [facility]???s Adebayo Hanson [facility] Pathology and Laboratory Medicine Department ([facility], [facility], [facility], [facility], [facility], [facility], or [facility]) in a manner consistent with CLIA requirements. One or more of these tests have not been cleared or approved by the FDA. [facility] is regulated under CLIA as qualified to perform high-complexity testing. These tests are used for clinical purposes. They should not be regarded as investigational or for research. Positive and negative controls stain appropriately. Performed By: #### 6 6121-5 ####[facility] LABCLIA [id number] [place] [address] [place] FINAL DIAGNOSIS Normal [facility] Comment on above: Order Comment: Kourtneyi leah Type: TISSUE SPECIMENOrdering Facility: [facility] Address: [address] [place] [address] Result Comment: 1. L eft chest, skin, [...] subcutis, dermis and epidermis (including ulceration), (see comment).PJM/pjm/05/25/24 at 1407 EST Performed By: #### 6 6121-5 ####[facility] LABCLIA [id number] [address] [place] FINAL PERFORMING LAB Normal [facility] Comment on above: Order Comment: Speci men Type: TISSUE SPECIMENOrdering Facility: [facility] Address: [address] [place] [address] Result Comment: Diag nostic interpretation performed at: [facility], [address] [place] [address] CLIA# [id number] Director: Gonzales Lazaro MD Performed By: #### 6 6121-5 ####[facility] LABCLIA [id number] [address] GROSS DESCRIPTION Normal [facility] Comment on above: Order Comment: Speci men Type: TISSUE SPECIMENOrdering Facility: [facility] Address: [address] [place] [address] Result Comment: A. S kin, ExcisionReceived in [...] 18, 2024 5:08 PMGross examination performed at [facility], [address] [place] [address] 16606Q. Breast Implant, LeftReceived in formalin, labeled as left breast implant with capsule is an intact, smooth lined, silicone-filled breast implant that measures 13.0 x 13.0 x 2.0 cm and weighs 232.3 g. No defects are noted. Inscribed on the surface is STYLE SCL LOT [id number] ALLERGAN 230 CC. Also present in the specimen container are multiple segments of bld-vbxsl-yhsd granular, rubbery membranous tissue fragments that aggregate to 0.8 0.5 x 6.0 x 2.1 cm. No calcifications are noted. No nodules are present. The implant is for gross examination and is reviewed with Dr. Bullard. Scrapper sections of the tissue is submitted in cassettes B1-B2. May 19, 2024 2:11 PMGross examination performed at [facility], [address] [place] [address] 33444Z. Skin, Wide ExcisionReceived in formalin labeled as [...] cut surfaces. Photographs are taken prior to sectioning.Scrapper sections are submitted as follows:C1-lateral tip, shavedC2-medial tip, shavedC3-skin lesion with superior, inferior, and underlying capsuleC4-C14 remainder of skin submitted in consecutive sections from medial to lateral, with underlying. (C5-C9 includes thickened subcutaneous tissue with possible involvement by neoplasm)G31-plxjwc capsule fsinG40-ytdpxkm capsule mrtcO38-rfrqchuha capsule wallThe specimen was removed from the patient at 12:11 PM on 05/18/2024 and placed in formalin at 12:20 PM.Gross examination performed at [place] [id number] May 19, 2024 9:12 AM Performed By: #### 6 6121-5 ####[facility] LABCLIA [id number] [address] [place] CNTHERAPYon 05-13-2024 CNTHERAPY Normal [facility] CNOVon 05-12-2024 CNOV Normal [facility] CNNURSEon 05-11-2024 CNNURSE Normal [facility] CNOVon 05-07-2024 CNOV Normal [facility] STREP A MOLECULAR (POC)on Procedural Control Valid [facility] Strep A (POCT) Negative Negative [facility] CNTHERAPYon 05-06-2024 CNTHERAPY Normal [facility] CBC W Auto Differential pane l (Bld)on 05-04-2024 Basophils (Bld) [#/Vol] 0.05 10*3/uL Normal <0.11 [facility] Comment on above: Order Comment: Speci men Type: BLOOD SPECIMENOrdering Facility: [facility] Address: [address] [place] [address] Performed By: #### 5 7021-8 ####[facility] [id number] [place] [address] [place] Basophils/100 WBC (Bld) 0.7 % Normal [facility] Comment on above: Order Comment: Speci men Type: BLOOD SPECIMENOrdering Facility: [facility] Address: [address] [place] [address] Performed By: #### 5 7021-8 ####[facility] [id number] [place] [address] [place] Differential cell count method Nom (Bld) Auto Normal [facility] Comment on above: Order Comment: Speci men Type: BLOOD SPECIMENOrdering Facility: [facility] Address: [address] [place] [address] Performed By: #### 5 7021-8 ####[facility] [id number] [place] [address] [place] Eosinophils (Bld) [#/Vol] 0.09 10*3/uL Normal <0.46 [facility] Comment on above: Order Comment: Speci men Type: BLOOD SPECIMENOrdering Facility: [facility] Address: [address] [place] [address] Performed By: #### 5 7021-8 ####[facility] [id number] [place] [address] [place] Eosinophils/100 WBC (Bld) 1.3 % Normal [facility] Comment on above: Order Comment: Speci men Type: BLOOD SPECIMENOrdering Facility: [facility] Address: [address] [place] [address] Performed By: #### 5 7021-8 ####[facility] [id number] [place] [address] [place] Erythrocyte distribution width (RBC) [Ratio] 12.8 % Normal 11.5-15.0 [facility] Comment on above: Order Comment: Speci men Type: BLOOD SPECIMENOrdering Facility: [facility] Address: [address] [place] [address] Performed By: #### 5 7021-8 ####[facility] MAURYROMELIA [id number] [place] [address] [place] Hematocrit (Bld) [Volume fraction] 37.3 % Normal 36.0-46.0 [facility] Comment on above: Order Comment: Speci men Type: BLOOD SPECIMENOrdering Facility: [facility] Address: [address] [place] [address] Performed By: #### 5 7021-8 ####[facility] [id number] [place] [address] [place] Hemoglobin (Bld) [Mass/Vol] 12.3 g/dL Normal 11.5-15.5 [facility] Comment on above: Order Comment: Speci men Type: BLOOD SPECIMENOrdering Facility: [facility] Address: [address] [place] [address] Performed By: #### 5 7021-8 ####[facility] [id number] [place] [address] [place] Immature granulocytes (Bld) [#/Vol] 0.03 10*3/uL Normal <0.10 [facility] Comment on above: Order Comment: Speci men Type: BLOOD SPECIMENOrdering Facility: [facility] Address: [address] [place] [address] Performed By: #### 5 7021-8 ####[facility] [id number] [place] [address] [place] Immature granulocytes/100 WBC (Bld) 0.4 % Normal [facility] Comment on above: Order Comment: Speci men Type: BLOOD SPECIMENOrdering Facility: [facility] Address: [address] [place] [address] Performed By: #### 5 7021-8 ####[facility]ITALWMALIA [id number] [place] [address] [place] Lymphocytes (Bld) [#/Vol] 1.94 10*3/uL Normal 1.00-4.00 [facility] Comment on above: Order Comment: Speci men Type: BLOOD SPECIMENOrdering Facility: [facility] Address: [address] [place] [address] Performed By: #### 5 7021-8 ####[facility] [id number] [place] [address] [place] Lymphocytes/100 WBC (Bld) 29.0 % Normal [facility] Comment on above: Order Comment: Speci men Type: BLOOD SPECIMENOrdering Facility: [facility] Address: [address] [place] [address] Performed By: #### 5 7021-8 ####[facility] [id number] [place] [address] [place] MCH (RBC) [Entitic mass] 27.2 pg Normal 26.0-34.0 [facility] Comment on above: Order Comment: Speci men Type: BLOOD SPECIMENOrdering Facility: [facility] Address: [address] [place] [address] Performed By: #### 5 7021-8 ####[facility] [id number] [place] [address] [place] MCHC (RBC) [Mass/Vol] 33.0 g/dL Normal 30.5-36.0 [facility] Comment on above: Order Comment: Speci men Type: BLOOD SPECIMENOrdering Facility: [facility] Address: [address] [place] [address] Performed By: #### 5 7021-8 ####[facility]NCLI [id number] [place] [address] [place] MCV (RBC) [Entitic vol] 82.3 fL Normal 80.0-100.0 [facility] Comment on above: Order Comment: Speci men Type: BLOOD SPECIMENOrdering Facility: [facility] Address: [address] [place] [address] Performed By: #### 5 7021-8 ####[facility]NC[facility] [id number] [place] [address] [place] Monocytes (Bld) [#/Vol] 0.49 10*3/uL Normal <0.87 [facility] Comment on above: Order Comment: Speci men Type: BLOOD SPECIMENOrdering Facility: [facility] Address: [address] [place] [address] Performed By: #### 5 7021-8 ####[facility] [id number] [place] [address] [place] Monocytes/100 WBC (Bld) 7.3 % Normal [facility] Comment on above: Order Comment: Speci men Type: BLOOD SPECIMENOrdering Facility: [facility] Address: [address] [place] [address] Performed By: #### 5 7021-8 ####[facility] [id number] [place] [address] [place] Neutrophils (Bld) [#/Vol] 4.08 10*3/uL Normal 1.45-7.50 [facility] Comment on above: Order Comment: Speci men Type: BLOOD SPECIMENOrdering Facility: [facility] Address: [address] [place] [address] Performed By: #### 5 7021-8 ####[facility]NCL[facility] [id number] [place] [address] [place] Neutrophils/100 WBC (Bld) 61.3 % Normal [facility] Comment on above: Order Comment: Speci men Type: BLOOD SPECIMENOrdering Facility: [facility] Address: [address] [place] [address] Performed By: #### 5 7021-8 ####[facility] MAURYROMELIA [id number] [place] [address] [place] Nucleated RBC (Bld) [#/Vol] 10*3/uL Normal <0.01 [facility] Comment on above: Order Comment: Speci men Type: BLOOD SPECIMENOrdering Facility: [facility] Address: [address] [place] [address] Performed By: #### 5 7021-8 ####[facility]ITALNCSADAF [id number] [place] [address] [place] Nucleated RBC/100 WBC (Bld) [Ratio] 0.0 /100 WBC Normal [facility] Comment on above: Order Comment: Speci men Type: BLOOD SPECIMENOrdering Facility: [facility] Address: [address] [place] [address] Performed By: #### 5 7021-8 ####[facility]ITALNCL[facility] [id number] [place] [address] [place] Platelet mean volume (Bld) [Entitic vol] 9.7 fL Normal 9.0-12.7 [facility] Comment on above: Order Comment: Speci men Type: BLOOD SPECIMENOrdering Facility: [facility] Address: [address] [place] [address] Performed By: #### 5 7021-8 ####[facility]ITALNCLIA [id number] [place] [address] [place] Platelets (Bld) [#/Vol] 259 10*3/uL Normal 150-400 [facility] Comment on above: Order Comment: Speci men Type: BLOOD SPECIMENOrdering Facility: [facility] Address: [address] [place] [address] Performed By: #### 5 7021-8 ####[facility]ITALNCLIA [id number] [place] [address] [place] RBC (Bld) [#/Vol] 4.53 10*6/uL Normal 3.90-5.20 [facility] Comment on above: Order Comment: Speci men Type: BLOOD SPECIMENOrdering Facility: [facility] Address: [address] [place] [address] Performed By: #### 5 7021-8 ####[facility]ITALNCLIA [id number] [place] [address] [place] WBC (Bld) [#/Vol] 6.68 10*3/uL Normal 3.70-11.00 [facility] Comment on above: Order Comment: Speci men Type: BLOOD SPECIMENOrdering Facility: [facility] Address: [address] [place] [address] Performed By: #### 5 7021-8 ####[facility]NCL[facility] [id number] [place] [address] [place] CNPNon 05-04-2024 CNPN Normal [facility] HISTORY PHYSICALon HISTORY PHYSICAL Normal [facility] CNOVon 04-28-2024 CNOV Normal [facility] CNPNon 04-28-2024 CNPN Normal [facility] INFLUENZA A&B MOLECULAR (POC )on 04-28-2024 Flu A (POCT) Negative Negative [facility] Flu B (POCT) Negative Negative [facility] Procedural Control Valid [facility] Location:[facility], [address] [place] [address], [place], [place], [id number] [place] [address] POINT OF CARE [facility] XR CHEST 2V FRONTAL/LATon XR CHEST 2V FRONTAL/LAT Normal [facility] XR Chest PA and Lateralon IMPRESSION: No acute radiographic abnormality. Tape Rules Printing Machine Operator: MARTÍNEZ Transcribe Date/Time: Apr 28 2024 3:53P Dictated by : FRACISCO BELLO MD This examination was interpreted and the report reviewed and electronically signed by: FRACISCO BELLO MD on Apr 28 2024 4:01PM EST DIVISION OF RADIOLOGY * * *Final [...] the thoracic spine. DIVISION OF RADIOLOGY Provider, [facility] - 04/28/2024 * * *Final Report* * [...] spine. IMPRESSION IMPRESSION: No acute radiographic abnormality. [employer] Printing Machine Operator: PSCB Transcribe Date/Time: Apr 28 2024 3:53P Dictated by : FRACISCO BELLO MD This examination was interpreted and the report reviewed and electronically signed by: FRACISCO BELLO MD on Apr 28 2024 4:01PM EST [facility] Radiology Study observation (narrative) Dana Farmer XR Chest PA and LateralOrder ed By: Cc Provider on 04-28-2024 [facility] [id number] 04-24-2024 [id number] Normal [facility] CNTHERAPYon 04-24-2024 CNTHERAPY Normal [facility] THERAPY NTon 04-24-2024 THERAPY NT Normal [facility] CNOVon 04-15-2024 CNOV Normal [facility] GLOOKO ON DEMANDon Ordered by an unspecified provider. [facility] CNPNon 04-13-2024 CNPN Normal [facility] US DVT UPPER LTon 04-13-2024 US DVT [...] imaged segments of the left upper extremity. [employer] Printing Machine Operator: PSCB Transcribe Date/Time: Apr 13 2024 11:33A Dictated by : ARIELLA ALEX MD This examination was interpreted and the report reviewed and electronically signed by: ARIELLA ALEX MD on Apr 13 2024 11:33AM EST [id number] Normal [facility] US Upper extremity vein - le fton 01-06-2025 IMPRESSION: Negative study for DVT in the left upper extremity. Negative study for superficial thrombophlebitis in the imaged segments of the left upper extremity. [employer] Printing Machine Operator: PSCMark Anthony Transcribe Date/Time: Apr 13 2024 11:33A Dictated by : ARILELA ALEX MD This examination was interpreted and the report reviewed and electronically signed by: ARIELLA ALEX MD on Apr 13 2024 11:33AM EST [email or web address] * * *Final Report* * * DATE [...] Subclavian veins: Normal compression, normal spontaneous flow. Adreima SYNGO Provider, [facility] - 04/13/2024 * * *Final Report* * [...] imaged segments of the left upper extremity. T[employer] Printing Machine Operator: PSCB Transcribe Date/Time: Apr 13 2024 11:33A Dictated by : ARIELLA ALEX MD This examination was interpreted and the report reviewed and electronically signed by: ARIELLA ALEX MD on Apr 13 2024 11:33AM EST [facility] Radiology Study observation (narrative) [facility] US Upper extremity vein - le ftOrdered By: Ccf Provider on 04-13-2024 [facility] CNOVSPon 04-10-2024 CNOVSP Normal [facility] CNPNon 04-10-2024 CNPN Normal [facility] Comprehensive metabolic 2000 panelon 04-10-2024 Albumin [Mass/Vol] 3.9 g/dL Normal 3.9-4.9 [facility] Comment on above: Order Comment: Speci men Type: BLOOD SPECIMENOrdering Facility: [facility] Address: [address] [place] [address] Performed By: #### 2 4323-8 ####[facility] [id number] [place] [address] [place] ALP [Catalytic activity/Vol] 65 U/L Normal 34-123 [facility] Comment on above: Order Comment: Speci men Type: BLOOD SPECIMENOrdering Facility: [facility] Address: [address] [place], [place] [id number] Performed By: #### 2 4323-8 ####[facility] [id number] [place] [address] [place] ALT [Catalytic activity/Vol] 12 U/L Normal 7-38 [facility] Comment on above: Order Comment: Speci men Type: BLOOD SPECIMENOrdering Facility: [facility] Address: [address] [place] [address] Performed By: #### 2 4323-8 ####[facility] MILLTOWNCLIA [id number] [place] [address] [place] Anion gap [Moles/Vol] 9 mmol/L Normal 8-15 [facility] Comment on above: Order Comment: Speci men Type: BLOOD SPECIMENOrdering Facility: [facility] Address: [address] [place] [address] Performed By: #### 2 4323-8 ####[facility] [id number] [place] [address] [place] AST [Catalytic activity/Vol] 18 U/L Normal 13-35 [facility] Comment on above: Order Comment: Speci men Type: BLOOD SPECIMENOrdering Facility: [facility] Address: [address] [place] [address] Performed By: #### 2 4323-8 ####[facility] [id number] [place] [address] [place] Bilirubin [Mass/Vol] 0.3 mg/dL Normal 0.2-1.[address] [facility] Comment on above: Order Comment: Speci men Type: BLOOD SPECIMENOrdering Facility: [facility] Address: [address] [place] [address] Performed By: #### 2 4323-8 ####[facility] [id number] [place] [address] [place] Calcium [Mass/Vol] 9.3 mg/dL Normal 8.5-10.2 [facility] Comment on above: Order Comment: Speci men Type: BLOOD SPECIMENOrdering Facility: [facility] Address: [address] [place] [address] Performed By: #### 2 4323-8 ####[facility] [id number] [place] [address] [place] Chloride [Moles/Vol] 102 mmol/L Normal 98-[address] [facility] Comment on above: Order Comment: Speci men Type: BLOOD SPECIMENOrdering Facility: [facility] Address: [address] [place] [address] Performed By: #### 2 4323-8 ####[facility] [id number] [place] [address] [place] CO2 [Moles/Vol] 27 mmol/L Normal 22-30 [facility] Comment on above: Order Comment: Speci men Type: BLOOD SPECIMENOrdering Facility: [facility] Address: [address] [place] [address] Performed By: #### 2 4323-8 ####[facility] [id number] [place] [address] [place] Creatinine [Mass/Vol] 0.91 mg/dL Normal 0.58-0.96 [facility] Comment on above: Order Comment: Speci men Type: BLOOD SPECIMENOrdering Facility: [facility] Address: [address] [place] [address] Performed By: #### 2 4323-8 ####[facility] [id number] [place] [address] [place] Creatinine and Glomerular filtration rate.predicted panel (S/P/Bld) 70 mL/min/1.73m??? Normal >=60 [facility] Comment on above: Order Comment: Speci men Type: BLOOD SPECIMENOrdering Facility: [facility] Address: [address] [place] [address] Result Comment: Sherlyn mated Glomerular Filtration Rate [...] Performed By: #### 2 4323-8 ####[facility]OS[facility]ITALCARLOSLIKey [id number] [place] [address] [place] Glucose [Mass/Vol] 183 mg/dL High 74-99 [facility] Comment on above: Order Comment: Sunny lynn Type: BLOOD SPECIMENOrdering Facility: [facility] Address: [address] [place] [address] Result Comment: The [place] Diabetes Association (ADA) provides guidance for cutoff [...] Standards of Medical Care in Diabetes 2016, [place] [employer]. Diabetes Care. 2016.39(Suppl 1). Performed By: #### 2 4323-8 ####[facility] [id number] [place] [address] [place] Potassium [Moles/Vol] 3.5 mmol/L Low 3.7-5.1 [facility] Comment on above: Order Comment: Sunny lynn Type: BLOOD SPECIMENOrdering Facility: [facility] Address: [address] [id number] Performed By: #### 2 4323-8 ####[facility]ITALNCLI [id number] [place] [address] [place] Protein [Mass/Vol] 7.1 g/dL Normal 6.3-8.0 [facility] Comment on above: Order Comment: Speci men Type: BLOOD SPECIMENOrdering Facility: [facility] Address: [facility] [place] [address] Performed By: #### 2 4323-8 ####[facility] [id number] [place] [address] [place] Sodium [Moles/Vol] 138 mmol/L Normal 136-144 [facility] Comment on above: Order Comment: Speci men Type: BLOOD SPECIMENOrdering Facility: [facility] Address: [address] [place] [address] Performed By: #### 2 4323-8 ####[facility] [id number] [place] [address] [place] Urea nitrogen [Mass/Vol] 25 mg/dL High 7-21 [facility] Comment on above: Order Comment: Speci men Type: BLOOD SPECIMENOrdering Facility: [facility] Address: [address] [place] [address] Performed By: #### 2 4323-8 ####[facility] [id number] [place] [address] [place] GLUCOSE, BLOOD (POC)on 04-06 Glucose [Mass/Vol] 143 mg/dL Abnormal 74 - 99 mg/dL [facility] Comment on above: Location:[facility], [address] [place] [address], [address] The Accu-Chek Inform II glucose meter has [...] Interpretation and review of laboratory results Abnormal [facility] PET/CT SKULL-THIGH SUBQon 04-06-2024 NM PET/CT SKULL-THIGH [...] * Uptake Time: 60 minutes * Radiopharmaceutical: D63-Dwmnvlustodttvjucq (FDG) COMPARISON: FDG PET/CT 12/30/2023 CORRELATION: MRI [...] disease. MUSCULOSKELETAL: * No metabolically active disease. Tape Rules Printing Machine Operator: PSCB Transcribe Date/Time: Apr 10 2024 2:35P Dictated by : SUKHJINDER SIMMONS MD This examination was interpreted and the report reviewed and electronically signed by: JOSE ADAMS MD on Apr 10 2024 3:28PM EST [id number] Normal [facility] CNOVon 03-25-2024 CNOV Normal [facility] DBT Breast - right diagnosti c for implanton 03-25-2024 IMPRESSION: There is no mammographic evidence of malignancy in the right breast. Return to annual screening mammogram is recommended. Annual mammogram will be due in 1 year. BI-RADS Category 1: Negative Interpreting Radiologist: Gui Keith M.D. Electronically signed on: 03/25/2024 [employer] Printing Machine Operator: CINDA Transcribe Date/Time: Mar 25 2024 11:23A Dictated by : GUI KEITH MD This examination was interpreted and the report reviewed and electronically signed by: GUI KEITH MD on Mar 25 2024 11:47AM [facility] DIVISION OF RADIOLOGY * * *Final Report* * * DATE OF EXAM: Mar 25 2024 11:40AM [facility] 0629 - SAMANTHA DIAG W LIN RT / PROCEDURE REASON: multiple diagnoses * * * * Physician Interpretation * * * * [place] [address] #[id number] - SAMANTHA DIAG W LIN RT HISTORY: [...] significant interval changes. DIVISION OF RADIOLOGY Provider, [facility] - 03/25/2024 * * *Final Report* * * DATE OF EXAM: Mar 25 2024 11:40AM W 0629 - SAMANTHA DIAG W LIN RT / PROCEDURE REASON: multiple diagnoses * * * * Physician Interpretation * * * * [id number] [facility] [address] [place] [address] #[id number] - SAMANTHA DIAG W LIN RT HISTORY: [...] Gui Keith M.D. Electronically signed on: 03/25/2024 T[employer] Rules Printing Machine Operator: CINDA Transcribe Date/Time: Mar 25 2024 11:23A Dictated by : GUI KEITH MD This examination was interpreted and the report reviewed and electronically signed by: GUI KEITH MD on Mar 25 2024 11:47AM EST [facility] Radiology Study observation (narrative) [facility] DBT Breast - right diagnosti c for implantOrdered By: Ccf Provider on 03-25-2024 [facility] SAMANTHA DIAG W LIN RTon 024 SAMANTHA DIAG W LIN RT Normal [facility] Abdomen Limitedon 03-24-2024 Abdomen Limited [facility] Imaging Services [address] [place] [id number] Abdomen Limited MR#: [id number] Acct: [id number] Name: PAT SORTO Rep #: [id number] : 1960 F 64 From: Nicci Tracy MD PCP: Dr. Jacinta Rivas MD Status: REG CLI Study: Abdomen Limited Date of Exam: 03/24/24 Exam# [id number] Ordering [place]: [place] [id number] STUDY: ABDOMINAL ULTRASOUND - RIGHT UPPER QUADRANT [...] Jacinta Rivas MD; Dr. Ney Hart MD Tape Rules Printing Machine Operator: Signed Normal [facility] Dexa Bone Density Studyon Dexa Bone Density Study [facility] Imaging Services [address] [place] [address] Dexa Bone Density Study MR#: [id number] Acct: [id number] Name: PAT SORTO Rep #: [id number] : 1960 F 64 From: Wil cox MD PCP: Dr. Jacinta Rivas MD Status: [facility] Study: Dexa Bone Density Study Date of Exam: 03/24/24 Exam# [id number] Ordering [place]: [place] [id number] STUDY: DUAL ENERGY X-RAY ABSORPTIOMETRY / DXA [...] 8:30 EST Reading Location ID and State: [address] [address] , Service support , CC: Dr. Jacinta Rivas MD; Dr. Ney Hart MD Tape Rules Printing Machine Operator: Signed Normal [facility] CNOVon 03-18-2024 CNOV Normal [facility] HEMOGLOBIN A1C (POC)on 03-18 HbA1c (Bld) [Mass fraction] 7.2 % Abnormal 4.3 - 5.6 % [facility] Comment on above: Location:[address], [place], [address] Point of care (POC) Hemoglobin A1c (HGBA1C) [...] specific diabetes management situations: The POC device peoplesoft functional analyst provides a normal range of 4.2% to 6.5% for the HGBA1C POC test. However, the [place] Diabetes Association guidelines indicate that patients with [...] Interpretation and review of laboratory results Abnormal [facility]20[facility] 02-26-2024 CNPN Normal [facility] MRI BREAST 3D POST PROCESSIN [facility] 02-18-2024 MRI BREAST 3D POST PROCESSING * * *Final Report* * * DATE OF EXAM: Feb 18 2024 10:54AM [facility] 0788 - MRI BREAST 3D POST PROCESSING / PROCEDURE REASON: multiple diagnoses * * * * Physician Interpretation * * * * RESULT: [id number] [place] [address] HISTORY: Patient is 64 years old and [...] completed on an independent workstation. An additional 2-dmqody-nigt resolution sequence was performed after the first two 1 minute post-contrast sequences. Complex volumetric analysis requiring post processing was performed using a semi-automated software [employer], on an independent workstation by the physician, [...] 6: Known Biopsy-Proven Malignancy Interpreting Radiologist: Delilah Haque M.D. Electronically signed on: 02/19/2024 Transcribed Using Voice Recognition Transcribe Date/Time: Feb 18 2024 10:52A Dictated by: DELILAH HAQUE MD This examination was interpreted and the report reviewed and electronically signed by: DELILAH HAQUE MD on Feb (more content not included)... Normal [facility] MRI BREAST WO/W IVCON BILon 02-18-2024 MRI BREAST WO/W IVCON DEYVI * * *Final Report* * * DATE OF EXAM: Feb 18 2024 10:50AM [facility] 0773 - MRI BREAST WO/W IVCON DEYVI / PROCEDURE REASON: multiple diagnoses * * * * Physician Interpretation * * * * RESULT: [facility] [address] [id number] HISTORY: Patient is 64 years old and [...] completed on an independent workstation. An additional 5-vypste-uthx resolution sequence was performed after the first two 1 minute post-contrast sequences. Complex volumetric analysis requiring post processing was performed using a semi-automated software [employer], on an independent workstation by the physician, [...] 6: Known Biopsy-Proven Malignancy Interpreting Radiologist: Delilah Haque M.D. Electronically signed on: 02/19/2024 Transcribed Using Voice Recognition Transcribe Date/Time: Feb 18 2024 10:50A Dictated by: DELILAH HAQUE MD This examination was interpreted and the report reviewed and electronically signed by: DELILAH HAQUE MD on Feb 18 (more content not included)... Normal [facility] CNOVon 02-05-2024 CNOV Normal [facility] GLOOKO ON DEMANDon Ordered by an unspecified provider. [facility] XR HIP 2V AP/LAT RTon 2023 XR [...] pubis are maintained. IMPRESSION: No acute abnormality T[employer] Rules Printing Machine Operator: PSCB Transcribe Date/Time: Jan 13 2024 3:50P Dictated by : WENDY MITCHELL MD This examination was interpreted and the report reviewed and electronically signed by: WENDY MITCHELL MD on Jan 13 2024 3:51PM EST [id number] Normal [facility] XR Hip - right AP and Latera carey 01-13-2024 IMPRESSION: No acute abnormality Tape [employer] Printing Machine Operator: PSCB Transcribe Date/Time: Jan 13 2024 3:50P Dictated by : WENDY MITCHELL MD This examination was interpreted and the report reviewed and electronically signed by: WENDY MITCHELL MD on Jan 13 2024 3:51PM EST [facility] * * *Final Report* * * [...] Sacroiliac joints and symphysis pubis are maintained. [facility] Provider, Krista Reyes - 01/13/2024 * [...] are maintained. IMPRESSION IMPRESSION: No acute abnormality Tape [employer] Printing Machine Operator: PSCB Transcribe Date/Time: Jan 13 2024 3:50P Dictated by : WENDY MITCHELL MD This examination was interpreted and the report reviewed and electronically signed by: WENDY MITCHELL MD on Jan 13 2024 3:51PM EST [facility] Radiology Study observation (narrative) [place] [facility] XR Hip - right AP and Latera lOrdered By: Ccf Provider on 01-13-2024 [facility] GLUCOSE, BLOOD (POC)on 12-29 Glucose [Mass/Vol] 142 mg/dL Abnormal 74 - 99 mg/dL [facility] Comment on above: Location:[facility], [address] [place] [address], [address] The Accu-Chek Inform II glucose meter has [...] Interpretation and review of laboratory results Abnormal [facility] NM PET/CT SKULL-THIGH SUBQon 12-30-2023 [...] * Uptake Time: 49 minutes * Radiopharmaceutical: N86-Ixfxlqmgeltmxqlcfg (FDG) COMPARISON: FDG PET/CT 08/19/2023, 05/01/2023 RESULT: [...] disease. MUSCULOSKELETAL: * No metabolically active disease. Tape Rules Printing Machine Operator: MARTÍNEZ Transcribe Date/Time: Dec 30 2023 1:24P Dictated by : SUKHJINDER POSEY DO This examination was interpreted and the report reviewed and electronically signed by: LAMIN HARRINGTON MD on Dec 30 2023 3:10PM EST [id number] Normal [facility] PET+CT Guidance for localiza tion of tumor [...] disease. MUSCULOSKELETAL: * No metabolically active disease. Tape Rules Printing Machine Operator: MARTÍNEZ Transcribe Date/Time: Dec 30 2023 1:24P Dictated by : SUKHJINDER POSEY DO This examination was interpreted and the report reviewed and electronically signed by: LAMIN HARRINGTON MD on Dec 30 2023 3:10PM EST [facility] * * *Final Report* * * [...] * Uptake Time: 49 minutes * Radiopharmaceutical: O66-Hvxdhzceektarqctoi (FDG) COMPARISON: FDG PET/CT 08/19/2023, 05/01/2023 RESULT: [...] arthroplasty. Soft Tissues: No radiotracer avid lesion. [facility] Provider, [facility] - 12/30/2023 * * *Final Report* * [...] * Uptake Time: 49 minutes * Radiopharmaceutical: Q43-Xayoaqgvtlrbjebayg (FDG) COMPARISON: FDG PET/CT 08/19/2023, 05/01/2023 RESULT: [...] disease. MUSCULOSKELETAL: * No metabolically active disease. Tape Rules Printing Machine Operator: MARTÍNEZ Transcribe Date/Time: Dec 30 2023 1:24P Dictated by : SUKHJINDER POSEY DO This examination was interpreted and the report reviewed and electronically signed by: LAMIN HARRINGTON MD on Dec 30 2023 3:10PM EST [facility] Radiology Study observation (narrative) [facility] PET+CT Guidance for localiza tion of tumor of Skull base to mid-thigh-- W 18F-FDG IVOrdered By: Ccf Provider on 12-30-2023 [facility] US ABD RIGHT UPPER QUADRANTo n [...] acute inflammation. Other chronic findings, as above. Tape Rules Printing Machine Operator: MARTÍNEZ Transcribe Date/Time: Nov 21 2023 3:42P Dictated by : TELMA GERBER MD This examination was interpreted and the report reviewed and electronically signed by: TELMA GERBER MD on Nov 21 2023 3:51PM EST [id number] Normal [facility] US ABD SPLEEN -NBon 11-19-19 [...] acute inflammation. Other chronic findings, as above. Tape Rules Printing Machine Operator: MARTÍNEZ Transcribe Date/Time: Nov 21 2023 3:42P Dictated by : TELMA GERBER MD This examination was interpreted and the report reviewed and electronically signed by: TELMA GERBER MD on Nov 21 2023 3:51PM EST [id number] Normal [facility] UA DIP, URINE (POC)on 2023 BILIRUBIN UA (POCT) Small Abnormal Negative [facility] CLARITY UA (POCT) Cloudy [facility] COLOR UA (POCT) Dark yellow [facility] GLUCOSE UA (POCT) 100 mg/dL Abnormal [facility] Hemoglobin Ql (U) Large Abnormal Negative [facility] Interpretation and review of laboratory results Abnormal [facility] KETONE UA (POCT) Negative Negative mg/dL [facility] LEUKOCYTES UA (POCT) Trace Abnormal Negative [facility] NITRITE UA (POCT) Negative Negative [facility] PH UA (POCT) 5.5 4.5 - 8.0 [facility] Protein Ql (U) >=300 Abnormal Negative mg/dL [facility] SPECIFIC GRAVITY UA (POCT) >=1.030 1.005 - 1.030 [facility] UROBILINOGEN UA (POCT) 0.2 Noemy l E.U./dL [facility] Location:[address], [place], [place], [address] [place] [address] POINT OF CARE [facility] FERRITINon 08-05-2023 Ferritin [Mass/Vol] 144.0 ng/mL 14.7 - 205.1 ng/mL [facility] Ferritin [Mass/Vol]on 2023 Interpretation and review of laboratory results Normal [facility] Iron and Iron binding capaci ty panelon 08-05-2023 Interpretation and review of laboratory results Normal [facility] Iron [Mass/Vol] 49 ug/dL 41 - 186 ug/dL [facility] Iron binding capacity [Mass/Vol] 319 ug/dL 232 - 386 ug/dL [facility] Iron/TIBC [Molar ratio] 15.4 % 15.0 - 57.0 % [facility] HEMOGLOBIN A1C (POC)on 07-15 HbA1c (Bld) [Mass fraction] 9.1 % Abnormal 4.3 - 5.6 % [facility] Comment on above: Location:[facility], [address] [place] [address], [place], [address] Point of care (POC) Hemoglobin A1c (HGBA1C) [...] specific diabetes management situations: The POC device peoplesoft functional analyst provides a normal range of 4.2% to 6.5% for the HGBA1C POC test. However, the [place] Diabetes Association guidelines indicate that patients with [...] Interpretation and review of laboratory results Abnormal [facility] Absolute lymphocyte countOrd ered By: Jaquan Nelson on 07-08-2023 Lymphocytes Auto (Unsp spec) [#/Vol] 1.06 10*3/uL 0.83-4.[address] [facility] Amorphous sediment detection in urine sediment by light microscopyOrdered By: Jaquan Nelson on 07-08-2023 Amorphous sediment LM Ql (Urine sed) 1+ URATE [facility] Automated lymphocyte count a s percentage of total leukocytesOrdered By: Jaquan Nelson on 07-08-2023 Lymphocytes/100 WBC Auto (Unsp spec) 12.7 % 19-[address] [facility] Basophil percentageOrdered B y: Jaquan Nelson on 07-08-2023 Basophil percentage >100 SEEN /hpf 0-5 [facility] Basophils/100 WBC (Bld) 0.5 % 0-1 [facility] Chloride [Moles/Vol] 102 mmol/L 98-107 [facility] Eosinophils/100 WBC (Bld) 0.6 % 0-[address] [facility] Glucose [Mass/Vol] 294 mg/dL 74-106 [facility] Comment on above: Glucose result great er than or equal to 200 mg/dLsuggests DIABETES MELLITUS per A.D.A. criteria. Hemoglobin (Bld) [Mass/Vol] 10.4 g/dL 12.0-15.[address] [facility] Monocytes/100 WBC (Bld) 8.5 % 0-10 [facility] Neutrophils (Bld) [#/Vol] 6.5 10*3/uL 2.0-7.[address] [facility] Neutrophils/100 WBC (Bld) 77.5 % 47-[address] [facility] Potassium [Moles/Vol] 3.7 mmol/L 3.5-5.1 [facility] Sodium [Moles/Vol] 137 mmol/L 136-145 [facility] WBC (Bld) [#/Vol] 8.4 10*3/uL 4.4-11.0 [facility] Bilirubin Test strip Ql (U)O rdered By: Jaquan Nelson on 07-08-2023 Bilirubin Ql (U) Negative Negative [facility] Determination of erythrocyte mean corpuscular volume (MCV)Ordered By: Jaquan Nelson on 07-08-2023 MCV (RBC) [Entitic vol] 86.4 fL 81-99 [facility] Erythrocyte distribution wid th ratioOrdered By: Jaquan Nelson on 07-08-2023 Erythrocyte distribution width (RBC) [Ratio] 14.3 % 11.6-14.[address] [facility] Erythrocyte distribution wid th standard deviationOrdered By: Jaquan Nelson on 07-08-2023 Erythrocyte distribution width (RBC) [Entitic vol] 45.2 fL 35.1-43.[address] [facility] GLUCOSE, BLOOD (POC)on 07-07 Glucose [Mass/Vol] 339 mg/dL Abnormal 74 - 99 mg/dL [facility] Hematocrit Auto (Bld) [Volum e fraction]Ordered By: Jaquan Nelson on 07-08-2023 Hematocrit (Bld) [Volume fraction] 32.3 % 37-[address] [facility] Immature granulocytes/100 WB C Auto (Bld)Ordered By: Jaquan Nelson on 07-08-2023 Immature granulocytes/100 WBC (Bld) 0.200 % 0.0-0.[address] [facility] Comment on above: IG% - Immature Granu locytes (promyelocytes, myelocytes and metamyelocytes) > 1% indicates that a LEFT SHIFT is Present. Ketones Test strip Ql (U)Ord ered By: Jaquan Nelson on 07-08-2023 Ketones Ql (U) Negative Negative [facility] Laboratory - Chemistry and C hemistry - challengeOrdered By: Jaquan Nelson on 07-08-2023 CO2 [Moles/Vol] 29.0 mmol/L 21.0-32.[address] [facility] Urea nitrogen/Creatinine [Mass ratio] 13.5 mg/mg 10-[address] [facility] Laboratory - Hematology and Cell countsOrdered By: Jaquan Nelson on 07-08-2023 MCH (RBC) [Entitic mass] 27.8 pg 27.0-32.[address] [facility] MCHC (RBC) [Mass/Vol] 32.2 g/dL 32-36 [facility] Nucleated RBC/100 WBC (Bld) [Ratio] 0 % 0-[address] [facility] Platelet mean volume (Bld) [Entitic vol] 10.4 fL 6.2-12.[address] [facility] Platelets (Bld) [#/Vol] 240 10*3/uL 150-[address] [facility] Mucus LM Ql (Urine sed)Order ed By: Jaquan Nelson on 07-08-2023 Mucus Ql (Urine sed) 0 SEEN /hpf [facility] Nitrite Test strip Ql (U)Ord ered By: Jaquan Nelson on 07-08-2023 Nitrite Ql (U) Negative Negative [facility] No Panel InformationOrdered By: Jaquan Nelson on 07-08-2023 Estimated Creatinine Clearance Calc 56.04 ml/min [facility] Estimated GFR (MDRD) Amer 64 mL/min >[address] [facility] Comment on above: GFR Calc Estimated GFR (MDRD) Non-Af Amer 53 mL/min >[address] [facility] Comment on above: Non- GFR Calc Urine RBC 10-25 SEEN /hpf 0-[address] [facility] Protein Test strip Ql (U)Ord ered By: Jaquan Nelson on 07-08-2023 Protein Ql (U) 100 mg/dl Negative [facility] RBC Auto (Bld) [#/Vol]Ordere d By: Jaquan Nelson on 07-08-2023 RBC (Bld) [#/Vol] 3.74 10*6/uL 4.2-5.4 [facility] Serum or plasma calcium ashley urement (mass/volume)Ordered By: Jaquan Nelson on 07-08-2023 Calcium [Mass/Vol] 9.1 mg/dL 8.5-10.1 [facility] Serum or plasma creatinine m easurement (mass/volume)Ordered By: Jaquan Nelson on 07-08-2023 Creatinine [Mass/Vol] 1.11 mg/dL 0.55-1.02 [facility] Comment on above: The validity of the calculated GFR & GFRAA in patients over 70 years has not been determined. Clinical correlation is essential. Serum or plasma urea nitroge n measurement (mass/volume)Ordered By: Jaquan Nelson on 07-08-2023 Urea nitrogen [Mass/Vol] 15 mg/dL 7-[address] [facility] Squamous epithelial cells de tection in urine sediment by light microscopyOrdered By: Jaquan Nelson on 07-08-2023 Epithelial cells.squamous LM Ql (Urine sed) 0-5 SEEN /hpf 5-[address] [facility] Thin prep Papanicolaou smear with manual screeningOrdered By: Jaquan Nelson on 07-08-2023 Thin prep Papanicolaou smear with manual screening 6 5-[address] [facility] UA DIP, URINE (POC)on 2023 BILIRUBIN UA (POCT) Negative Negative [facility] CLARITY UA (POCT) Cloudy [facility] COLOR UA (POCT) Yellow [facility] GLUCOSE UA (POCT) >=1000 Abnormal Negative mg/dL [facility] Hemoglobin Ql (U) Large Abnormal Negative [facility] KETONE UA (POCT) Negative Negative mg/dL [facility] LEUKOCYTES UA (POCT) Small Abnormal Negative [facility] NITRITE UA (POCT) Negative Negative [facility] PH UA (POCT) 5.5 4.5 - 8.0 [facility] Protein Ql (U) >=300 Abnormal Negative mg/dL [facility] SPECIFIC GRAVITY UA (POCT) 1.020 1.005 - 1.030 [facility] UROBILINOGEN UA (POCT) 0.2 E.U./dL Noemy l E.U./dL [facility] Urine blood detectionOrdered By: Jaquan Nelson on 07-08-2023 RBC Ql (U) 250 /ul Negative [facility] Urine clarityOrdered By: Cheo Nelson on 07-08-2023 Clarity (U) Cloudy Clear [facility] Urine color determinationOrd ered By: Jaquan Nelson on 07-08-2023 Color (U) Yellow Yellow [facility] Urine glucose detectionOrder ed By: Jaquan Nelson on 07-08-2023 Glucose Ql (U) 1000 mg/dl Normal [facility] Urine leukocyte esterase det ection by dipstickOrdered By: Jaquan Nelson on 07-08-2023 Leukocyte esterase Test strip Ql (U) 500 /ul Negative [facility] Urine pHOrdered By: Jaquan harden on 07-08-2023 pH (U) 6.0 [pH] 5.0 - 8.[address] [facility] Urine sediment bacteria coun t by microscopy (number/high power field)Ordered By: Jaquan Nelson on 07-08-2023 Bacteria LM.HPF (Urine sed) [#/Area] 2 /[HPF] None Seen [facility] Urine specific gravity measu rementOrdered By: Jaqaun Nelson on 07-08-2023 Specific gravity (U) [Rel density] 1.015 1.002-1.[address] [facility] Urine urobilinogen measureme ntOrdered By: Jaquan Nelson on 07-08-2023 Urobilinogen Ql (U) Normal mg/dl Normal [facility] NM PET/CT SKULL-THIGH SUBSEQ UENTon 01-28-2023 [facility] Basic metabolic 2000 panelon 11-07-2022 Anion gap [Moles/Vol] 10 mmol/L 9 - 18 mmol/L [facility] Calcium [Mass/Vol] 9.6 mg/dL 8.5 - 10. 2 mg/dL [facility] Chloride [Moles/Vol] 105 mmol/L 97 - 10 5 mmol/L [facility] CO2 [Moles/Vol] 25 mmol/L 22 - 30 mmol/L [facility] Creatinine [Mass/Vol] 1.27 mg/dL High 0.58 - 0.96 mg/dL [facility] Estimated Glomerular Filtration Rate 48 mL/min/1.73m Low >=60 mL/min/1.7 3m [facility] Glucose [Mass/Vol] 140 mg/dL High 74 - 99 mg/dL [facility] Potassium [Moles/Vol] 3.8 mmol/L 3.7 - 5.1 mmol/L [facility] Sodium [Moles/Vol] 140 mmol/L 136 - 144 mmol/L [facility] Urea nitrogen [Mass/Vol] 22 mg/dL High 7 - 21 mg/dL [facility] Urinalysis complete panel (U )on 09-20-2022 Bilirubin Ql (U) Negative Negative [facility] Clarity (Unsp spec) Cloudy Abnormal Clear [facility] Color (U) Yellow Yellow [facility] Epithelial cells LM.HPF (Urine sed) [#/Area] Few Abnormal None Seen /HPF [facility] Glucose Test strip (U) [Mass/Vol] Negative Trace, Negative [facility] Hemoglobin Ql (U) 2+ Abnormal Negative, Trace [facility] Hyaline casts (Urine sed) [#/Area] 4-10 /LPF Abnormal 0 /LPF [facility] Ketones Ql (U) Negative Trace, Negative [facility] Leukocyte esterase Test strip Ql (U) 500 Ailin/uL Abnormal Negative, 25 Ailin/uL [facility] Nitrite Ql (U) Negative Negative [facility] pH (U) 5.5 [pH] 5.0 - 8.0 [facility] Protein (U) [Mass/Vol] 1+ Abnormal Trace , Negative [facility] RBC LM.HPF (Urine sed) [#/Area] 11-25 /HPF Abnormal 0-3 /HPF [facility] Specific gravity (U) [Rel density] 1.018 1.005 - 1.030 [facility] Urobilinogen Ql (U) Negative Negative [facility] WBC LM.HPF (Urine sed) [#/Area] /[HPF] Abnormal 0-5 /HPF [facility] MRI BREAST WO/W IVCON BILATE RALon 08-15-2022 [facility] ANES POSTPROC EVALon 023 ANES POSTPROC EVAL HNO ID: [id number] Author: Cliff Payton MD Service: Anesthesiology Author Type: Anesthesiologist Type: Anesthesia Postprocedure Evaluation Filed: 08/14/2022 10:02 AM Note Text: POST ANESTHESIA EVALUATION NOTE : 1960 Procedure Summary Date: 08/14/22 Room / Location: [facility] / [facility] Anesthesia Start: 903 Anesthesia Stop: 949 Procedure: [...] August 14, 2022 TIME: 10:02 AM CSN: [id number] [facility] ANES PRE-OPon 08-14-2022 ANES PRE-OP HNO ID: [id number] Author: Cliff Payton MD Service: Anesthesiology Author [...] August 14, 2022 TIME: 8:50 AM CSN: [id number] Normal [facility] CYTOLOGY NON-GYNon 3 ADEQUACY INTERPRETATION [facility] Comment on above: Order Comment: Speci men Type: SPECIMEN OBTAINED BY ASPIRATION Ordering Facility: [facility] Address: [address] [address] Result Comment: A: # 1 Positive for malignant cells, adenocarcinoma Dr. Rey / Margie Arzola Each letter in the above intra-procedural assessment refers to a unique site. The specific site is indicated in the final diagnosis portion of the report. Each number in this assessment references a discrete evaluation episode. Intra-procedural assessment performed at [facility], [address] [place] [address] Performed By: #### C YTONOAlexandria #### [facility] CLIA [id number] [address] [place] [address] LAB CLIA [id number] [facility] [facility] [address] OF HEATHER CASE REPORT Normal [facility] Comment on above: Order Comment: Speci men Type: SPECIMEN OBTAINED BY ASPIRATION Ordering Facility: [facility] Address: [address] [address] Result Comment: Medi renny Cytology Report Case: [id number] Authorizing Provider: Kam Dangelo MD Collected: 08/14/2022 09:11 AM Ordering Location: [facility] Received: 08/14/2022 10:05 AM Endoscopy - ENDO Pathologist: Adam Rey MD Specimen: EBUS TRANSBRONCHIAL FINE NEEDLE ASPIRATE, LYMPH NODE, 4L Performed By: #### C YTONON #### [facility] CLIA [id number] [place] [address] LAB CLIA [id number] [address] CLINICAL HISTORY Normal [facility] Comment on above: Order Comment: Speci men Type: SPECIMEN OBTAINED BY ASPIRATION Ordering Facility: [facility] Address: [address] [place] [address] Result Comment: Pre- op diagnosis: Adenopathy [R59.9] Performed By: #### C YTONON #### [facility] CLIA [id number] [address] [place] [address] LAB CLIA [id number] [address] DIAGNOSIS COMMENT Normal [facility] Comment on above: Order Comment: Speci men Type: SPECIMEN OBTAINED BY ASPIRATION Ordering Facility: [facility] Address: [address] [place] [address] Result Comment: The following immunohistochemical stains with appropriate controls were performed on the cell block and the results support the interpretation above: GATA3 and TRPS1 - positive. See also related surgical pathology report [id number]. Laboratory Developed Test (LDT) Disclaimer (GATA3): Performance characteristics of immunohistochemical, immunofluorescent and chromogenic in-situ hybridization tests have been determined by the performing laboratory within [facility]???s [facility] ([facility], [facility], [facility], [facility], [facility], or [facility]) in a manner consistent with CLIA requirements. [...] condition. Performed By: #### C YTONON #### [facility] CLIA [id number] [address] [place] [address] LAB CLIA [id number] [address] [place] [address] FINAL DIAGNOSIS [facility] Comment on above: Order Comment: Speci men Type: SPECIMEN OBTAINED BY ASPIRATION Ordering Facility: [facility] Address: [address] [address] Result Comment: A - EBUS TRANSBRONCHIAL FINE NEEDLE ASPIRATE, LYMPH NODE - 4L Positive for malignant cells. Metastatic adenocarcinoma consistent with breast primary (see comment). The following cell blocks were associated with this case: A1 Cell Block, Alcohol Fixed Performed By: #### C YTONON #### [facility] CLIA [id number] [address] [place] [address] LAB CLIA [id number] [address] [place] [address] FINAL PERFORMING LAB Normal [facility] Comment on above: Order Comment: Speci men Type: SPECIMEN OBTAINED BY ASPIRATION Ordering Facility: [facility] Address: [address] [address] Result Comment: Tech nical component, lamp stack developer screening performed at [facility], [address] [place] [address] CLIA# [id number] Diagnostic interpretation performed at [facility], [address] [place] [address] CLIA# [id number] Radiagraph Operator: Adam Rey M.D. Performed By: #### C YTONON #### [facility] CLIA [id number] [address] [place] [address] LAB CLIA [id number] [address] [place] [address] GROSS DESCRIPTION Normal [facility] Comment on above: Order Comment: Speci men Type: SPECIMEN OBTAINED BY ASPIRATION Ordering Facility: [facility] Address: [address] [place] [address] Result Comment: Leonel SMITH TRANSBRONCHIAL FINE NEEDLE ASPIRATE, LYMPH NODE 30 cc clear light pink CytoLyt with scant particles. ThinPrep and Cell Block prepared and 2 smears (1 air dried and 1 fixed). Performed By: #### C YTONON #### [id number] [address] [place] [address] OF [facility] LAB CLIA [id number] [address] [place] [address] ORDER COMMENT Normal [facility] Comment on above: Order Comment: Speci men Type: SPECIMEN OBTAINED BY ASPIRATION Ordering Facility: [facility] Address: [address] [place] [address] Result Comment: Pre- op diagnosis: Adenopathy [R59.9] Performed By: #### C YTONON #### [facility] CLIA [id number] [address] [place] [address] OF [facility] LAB CLIA [id number] [address] [place] [address] OF HEATHER HER2 (4B5) BY IHCon 08-15-19 23 HER2 (4B5) BY IHC Normal [facility] Comment on above: Order Comment: Speci men Type: TISSUE SPECIMEN Ordering Facility: [facility] Address: [address] [place] [address] Result Comment: [place] [facility] RESULTS: Estrogen Receptor (ER) Positive 91-100% Stain intensity: strong Internal controls: absent External controls: appropriately stained Progesterone Receptor (NY) Positive 91-100% Stain intensity: strong Internal controls: [...] Reference Range for Hormone Receptors: Staining for [place] of greater than or equal to 1% of the tumor cells is considered positive. Staining for ER of 1-10% of the tumor cells is considered low positive. Staining for ER of greater than 10% of the tumor cells is considered positive. Staining for ER or [place] of less than 1% is considered negative. [...] and Progesterone Receptor Testing in Breast Cancer: [place] Society of Clinical Oncology/College of [place] Pathologists Guideline Update. RACHELLE Arauz, Dennis FISH, et al., Arch Pathol Lab Med. 2019Apr 20. METHODS: Estrogen Receptor: Food and Drug Administration (FDA) cleared: [employer], [place], [place] Primary Antibody: SP1 Progesterone Receptor: FDA cleared: [employer], [place], [place] Primary Antibody: IE2 HER2 (ERBB2) by IHC: FDA cleared: [employer], [place], [place] Primary Antibody:4B5 The hormone receptor tests were performed and reported in accordance with the guidelines approved by the [place] Society of Clinical Oncologists and the College of [place] Pathologists. Regla BUSH, et al. Estrogen and Progesterone Receptor Testing in Breast Cancer: [place] Society of Clinical Oncologists and the College of [place] Pathologists Guideline Update. Arch Pathol Lab Med. 2019;144(5):545563. PMID: [id number]. The hormone receptor assays have been internally validated on decalcified tissues (for [facility] only). Estrogen and progesterone receptor results are valid if tissue was processed according to ASCO/CAP guidelines. Antibody and Detection System: [place] Pathway anti-HER2 rabbit monoclonal antibody (clone 4B5), [place] Confirm anti-estrogen receptor rabbit monoclonal antibody (clone SP1) and [place] anti-progesterone receptor rabbit monoclonal antibody (clone IE2) detected with the Red Lambda UltraView Univeral DAB Detection Kit (indirect biotin-free detection), [employer], [place], [place]. Control Slides: Cell line controls with high, [...] accordance with the guidelines approved by the [place] Society of Clinical Oncologists and the College of [place] Pathologists. Rochelle FRITZ et al. Arch Pathol [...] not included)... Performed By: #### S , [id number] #### [facility] CLIA [id number] [address] [place] [address] [place] NURSING PROGon 08-14-2022 NURSING PROG HNO ID: [id number] Author: Daily Palma Jolene, RN Service: ? Author Type: Registered Nurse Type: Nursing Progress Note Filed: 08/14/2022 8:49 AM Note Text: PATIENT EDUCATION TOPIC: PROCEDURE / SURGERY: Procedure/Surgery: ebus PATIENT NAME: Pat Sorto PATIENT LOCATION: ENDO POOL/FV ENDO POOL READINESS TO LEARN [...] None REFERRAL (RECOMMENDATION): None Electronically Signed By: aDily Fernández Other: ebus [facility] SURGICAL PATHOLOGYon 023 ADDENDUM 1: [facility] Comment on above: Order Comment: Speci men Type: TISSUE SPECIMEN Ordering Facility: [facility] Address: [address] [place] [address] Result Comment: The neoplastic cells are positive for GATA3, TRPS1 and ER, and negative for TTF-1, consistent with a breast primary. ER/NY/HER2 will be reported in an addendum. Addendum electronically signed by Toño Cabrera MD on 08/16/2022 at 10:12 AM Performed By: #### S , [id number] #### [facility] CLIA [id number] [address] [place], [place] [address] CASE REPORT [facility] Comment on above: Order Comment: Speci men Type: TISSUE SPECIMEN Ordering Facility: [facility] Address: [address] [place] [address] Result Comment: Surg ical Pathology Report Case: [id number] Authorizing Provider: Kam Dangelo MD Collected: 08/14/2022 09:27 AM Ordering Location: [facility] Received: 08/14/2022 11:28 AM Endoscopy - ENDO Pathologist: Toño Cabrera MD Specimen: LUNG BIOPSY LEFT, station 4L core biopsy Performed By: #### S , [id number] #### [facility] CLIA [id number] [address] [place] [address] CLINICAL HISTORY Normal [facility] Comment on above: Order Comment: Speci men Type: TISSUE SPECIMEN Ordering Facility: [facility] Address: [address] [place] [address] Result Comment: Pre- op diagnosis: Adenopathy [R59.9] Performed By: #### S , [id number] #### [facility] CLIA [id number] [address] [place] [address] DIAGNOSIS COMMENT Immunohistochemical stains for site of origin have been requested and will be reported in an addendum. [facility] Comment on above: Order Comment: Speci men Type: TISSUE SPECIMEN Ordering Facility: [facility] Address: [address] [place] [address] Performed By: #### S , [id number] #### [facility] CLIA [id number] [address] [place] [address] FINAL DIAGNOSIS [facility] Comment on above: Order Comment: Speci men Type: TISSUE SPECIMEN Ordering Facility: [facility] Address: [address] [place] [address] Result Comment: A. L ymph node, station 4L core biopsy: - Metastatic adenocarcinoma (See comment). Performed By: #### S , [id number] #### [facility] CLIA [id number] [address] [place] [address] FINAL PERFORMING LAB [facility] Comment on above: Order Comment: Speci men Type: TISSUE SPECIMEN Ordering Facility: [facility] Address: [address] [place] [address] Result Comment: Diag nostic interpretation performed at [place] [address] CLIA# [id number] Radiagraph Operator: Gonzales Lazaro M.D. Performed By: #### S , [id number] #### [facility] CLIA [id number] [address] [place] [address] OF [facility] GROSS DESCRIPTION Normal [facility] Comment on above: Order Comment: Speci men Type: TISSUE SPECIMEN Ordering Facility: [facility] Address: [address] [place] [address] Result Comment: A. L HOSSEIN BIOPSY LEFT Received in formalin are multiple segments of cylindrical tissue aggregating to 2.0 x 1.1 x 0.2 cm, red-brown and of a soft and friable consistency. Totally submitted in formalin in one cassette. Gross examination performed at [address] 08/14/2022 4:28 PM Performed By: #### S , [id number] #### [facility] CLIA [id number] [address] [place] [address] OF [facility] CNOVon 08-13-2022 CNOV Office Visit (PUFAMO ) PAT SORTO ([id number]) 1960 F UPA Date Time Provider Department 08/13/22 10:40 AM KAM DANGELO PUFAMO During your visit today, we recorded the following information about you: Pulse Blood pressure Weight Height 70/minute 144/87 92.1 kg 1.676 m Kam Dangelo MD 08/13/2022 11:14 AM Signed Interventional Pulmonary Consultation Date of Service: August 13, 2022 Patient: Pat Chaulang Medical Record: [id number] Primary Care Physician: Jacinta Rivas MD Referring Physician: Serena Carrasco DO History of Present Illness Patkey Chaulang is a 62 year old female who [...] (HCC) followed by Dr. Husam Hart in [place] Past Surgical History PAST SURGICAL HISTORY Procedure Laterality Date ARTHRP ACETBLR/PROX FEM PROSTC AGRFT/ALGRFT Right 03/20/2019 Hip replacement, total ARTHRP KNE CONDYLEANDPLATU MEDIALANDLAT COMPARTMENTS Left 02/2016 BIOPSY BREAST OPEN INCISIONAL Left 2007 [facility] benign pathology per patient BREAST RECONSTRUCTION Left [...] ABDOMEN: S (more content not included)... Normal [facility] HISTORY PHYSICALon 3 HISTORY PHYSICAL HNO ID: [id number] Author: Kam Dangelo MD Service: ? Author Type: Physician Type: HANDP Filed: 08/13/2022 11:14 AM Note Text: Interventional Pulmonary Consultation Date of Service: August 13, 2022 Patient: Pat Sorto Medical Record: [id number] Primary Care Physician: Jacinta Rivas MD Referring Physician: Serena Carrasco, History of Present Illness Pat Sorto is [...] followed by Dr. Husam Hart in [place] Past Surgical History PAST SURGICAL HISTORY Procedure Laterality Date ARTHRP ACETBLR/PROX FEM PROSTC AGRFT/ALGRFT Right 03/20/2019 Hip replacement, total ARTHRP KNE CONDYLEANDPLATU MEDIALANDLAT COMPARTMENTS Left 02/2016 BIOPSY BREAST OPEN INCISIONAL Left 2007 [facility] benign pathology per patient BREAST RECONSTRUCTION Left [...] the CT-PET (more content not included)... Normal [facility] US BREAST LTD LEFTon 023 [facility] XR Pelvis APon 03-26-2022 * * *Final Report* * * DATE OF EXAM: Mar 26 2022 9:26AM MDO 5239 - XR PELVIS 1V AP / PROCEDURE REASON: M25.551-Right hip pain * * * * Physician Interpretation * * * * PROCEDURE: Pelvis INDICATION: Right hip pain .pain TECHNIQUE: XR PELVIS 1V AP COMPARISON: 03/15/2020 FINDINGS: The right total hip arthroplasty remains in satisfactory position without evidence for loosening. Moderate to advanced left hip osteoarthrosis, showing interval progression. No fracture. [facility] Provider, Krista Reyes - 03/26/2022 * * *Final Report* * * DATE OF EXAM: Mar 26 2022 9:26AM MDO 5239 - XR PELVIS 1V AP / [...] RED 2. Progressive advanced left hip osteoarthrosis [employer] Printing Machine Operator: MARTÍNEZ Transcribe Date/Time: Mar 26 2022 2:12P Dictated by : WENDY MITCHELL MD This examination was interpreted and the report reviewed and electronically signed by: WENDY MITCHELL MD on Mar 26 2022 2:12PM EST [facility] Radiology Study observation (narrative) [facility] XR Pelvis APOrdered By: [facility] Provider on 03-26-2022 [facility] HEMOGLOBIN A1C (POC)on 02-19 HbA1c (Bld) [Mass fraction] 5.9 % 4.2 - 5.6 % [facility] UA DIP, URINE (POC)on 2021 BILIRUBIN UA (POCT) Negative Negative [facility] CLARITY UA (POCT) Cloudy [facility] COLOR UA (POCT) Yellow [facility] GLUCOSE UA (POCT) Negative Negative mg/dL [facility] HEMOGLOBIN/BLOOD UA (POCT) Trace-intact Abnormal Negative [facility] KETONE UA (POCT) Negative Negative mg/dL [facility] LEUKOCYTES UA (POCT) Large Abnormal Negative [facility] NITRITE UA (POCT) Positive Abnormal Negative [facility] PH UA (POCT) 5.5 4.5 - 8.0 [facility] Protein Ql (U) Trace Abnormal Negative mg/dL [facility] SPECIFIC GRAVITY UA (POCT) 1.025 1.005 - 1.030 [facility] UROBILINOGEN UA (POCT) 0.2 E.U./dL Noemy l E.U./dL [facility] UA DIP, URINE (POC)on 2021 BILIRUBIN UA (POCT) Negative Negative [facility] CLARITY UA (POCT) Cloudy [facility] COLOR UA (POCT) Yellow [facility] GLUCOSE UA (POCT) Negative Negative mg/dL [facility] HEMOGLOBIN/BLOOD UA (POCT) Small Abnormal Negative [facility] KETONE UA (POCT) Negative Negative mg/dL [facility] LEUKOCYTES UA (POCT) Moderate Abnormal Negative [facility] NITRITE UA (POCT) Positive Abnormal Negative [facility] PH UA (POCT) 5.0 4.5 - 8.0 [facility] Protein Ql (U) 30 mg/dL Abnormal Negative mg/dL [facility] SPECIFIC GRAVITY UA (POCT) 1.020 1.005 - 1.030 [facility] UROBILINOGEN UA (POCT) 0.2 E.U./dL Noemy l E.U./dL [facility] XR Chest PA and Lateralon IMPRESSION: No acute radiographic abnormality. Tape Rules Printing Machine Operator: MARTÍNEZ Transcribe Date/Time: Feb 13 2021 4:51P Dictated by : CHRISTIAN MA MD This examination was interpreted and the report reviewed and electronically signed by: CHRISTIAN MA MD on Feb 13 2021 4:54PM [facility] DIVISION OF RADIOLOGY * * *Final Report* [...] soft tissues: Unremarkable. [facility]OLOGY [facility] * * *Final Report* * [...] Unremarkable. IMPRESSION IMPRESSION: No acute radiographic abnormality. [employer] Printing Machine Operator: MARTÍNEZ Transcribe Date/Time: Feb 13 2021 4:51P Dictated by : CHRISTIAN MA MD This examination was interpreted and the report reviewed and electronically signed by: CHRISTIAN MA MD on Feb 13 2021 4:54PM EST [facility] Radiology Study observation (narrative) [facility] XR Chest PA and LateralOrder ed By: Cc Provider on 02-13-2021 [facility] XR Chest PA and Lateralon IMPRESSION: No acute radiographic abnormality. T[employer] Printing Machine Operator: PSCB Transcribe Date/Time: Jan 03 2021 3:52P [...] mild degenerative changes. DIVISION OF RADIOLOGY Provider, [facility] - 01/03/2021 * * *Final Report* * [...] changes. IMPRESSION IMPRESSION: No acute radiographic abnormality. T[employer] Printing Machine Operator: MARTÍNEZ Transcribe Date/Time: Jan 03 2021 3:52P Dictated by : RODRÍGUEZ MAGUIRE MD This examination was interpreted and the report reviewed and electronically signed by: RODRÍGUEZ MAGUIRE MD on Jan 03 2021 3:52PM EST [facility] Radiology Study observation (narrative) [facility] XR Chest PA and LateralOrder ed By: Ccf Provider on 01-03-2021 [facility] US ELASTOGRAPHY LIVER W/ABD LTDon 08-12-2019 [...] Izzy Duran, Adam Hays, Moris Espinoza, Betzaida Jcakson, Brent Tate, Dewayne Neal, Adebayo Pollock, Karyn Hannah, Nuzhat Mcclellan, and Nuzhat Gotti Radiology 2015 276:3, [phone] Interpreted By: Brett Cheema MD Preliminary Report By: Brett Cheema MD Electronically Signed By: Brett Cheema MD Dictated Date: 08/12/2019 11:16:29 AM Prelim Date: 08/12/2019 11:16:29 AM Sign Date: 08/12/2019 11:18:14 AM Ordering Provider:Ney Hart [facility] ([place]) Basic Metabolic Profile (BMP )Ordered By: Steel Buffer on 04-24-2017 Basic metabolic 2000 panel 59 mL/min Abnormal [facility] Work Phone: Comment on above: Non- GFR Calc [facility] [address] [place], [place], [address] Basic metabolic 2000 panel 25 mg/dL Abnormal 7-18 [facility] Work Phone: Comment on above: [facility] [address] [place], [place], [phone] Basic metabolic 2000 panel 72 mL/min Normal [facility] Work Phone: Comment on above: GFR Calc [facility] [address] [place], [place], [phone] Basic metabolic 2000 panel 56.28 ml/min Normal [facility] Work Phone: Comment on above: [facility] [address] [place], [place], [phone] Basic metabolic 2000 panel 24.5 {RATIO} Abnormal 10-20 [facility] Work Phone: Comment on above: [facility] [address] [place], [place], [phone] Basic metabolic 2000 panel 123 mg/dL Abnormal 70-110 [facility] Work Phone: Comment on above: Fasting Glucose resu lt from 110 to <126 mg/dLsuggests IMPAIRED HOMEOSTASIS per A.D.A. criteria. [facility] [address] [place], [place], [phone] Basic metabolic 2000 panel 3.8 mmol/L Normal 3.5-5.1 [facility] Work Phone: Comment on above: [facility] [address] [place], [place], [phone] Basic metabolic 2000 panel 11 1 Normal 5-15 [facility] Work Phone: Comment on above: [facility] [address] [place], [place], [address] Basic metabolic 2000 panel 9.3 mg/dL Normal 8.5-10.1 [facility] Work Phone: Comment on above: [facility] [address] [place], [place], [address] Basic metabolic 2000 panel 24.0 mmol/L Normal 21.0-32.0 [facility] Work Phone: Comment on above: [facility] [address] [place], [place], [phone] Basic metabolic 2000 panel 137 mmol/L Normal 136-145 [facility] Work Phone: Comment on above: [facility] [address] [place], [place], [phone] Basic metabolic 2000 panel 1.02 mg/dL Normal 0.55-1.02 [facility] Work Phone: Comment on above: The validity of the calculated GFR AND GFRAA in patients over70 years has not been determined. Clinical correlation isessential. [facility] [address] [place], [place], [phone] Basic metabolic 2000 panel 102 mmol/L Normal 98-107 [facility] Work Phone: Comment on above: [facility] [address] [place], [place], [phone] CBC-Complete Blood Cnt No Di ffOrdered By: Steel Buffer on 04-24-2017 Erythrocyte distribution width Ratio (RBC) 12.0 % Normal 11.6-14.6 [facility] Work Phone: Comment on above: [facility] [address] [place], [place], [address] Hematocrit Volume Fraction (Bld) 40.0 % Normal 37-47 [facility] Work Phone: Comment on above: [facility] [address] [place], [place], [phone] Hemoglobin mass conc (Bld) 13.4 g/dL Normal 12.0-15.0 [facility] Work Phone: Comment on above: [facility] [address] [place], [address] MCH Entitic mass (RBC) 29.9 pg Normal 27.0-32.0 Co [facility]fieldehensive [facility] Work Phone: Comment on above: [facility] [address] [place], [address] MCHC mass conc (RBC) 33.5 {g/gl} Normal 32-36 Com prehensive [facility] Work Phone: Comment on above: [facility] [address] [place], [address] MCV Entitic volume (RBC) 89.3 fL Normal 81-99 [facility] Work Phone: Comment on above: [facility] [address] [place], [address] Platelet mean volume Entitic volume (Bld) 10.4 fL Normal 6.2-12.0 Comprehensi Internal Medicine Work Phone: Comment on above: [facility] [address] [place], [address] Platelets #/vol (Bld) 256 10*3/uL Normal 150-450 Co [facility] Work Phone: Comment on above: [facility] [address] [place], [address] RBC #/vol (Bld) 4.48 {M/mm3} Normal 4.2-5.4 Compreh [facility] Work Phone: Comment on above: [facility] [address] [place], [address] WBC #/vol (Bld) 9.0 10*3/uL Normal 4.4-11.0 Comprehe nsive Internal Medicine Work Phone: Comment on above: [facility] [address] [place], [address] CBC-Complete Blood Cnt No Diff 38.8 fL Normal 35.1-43.9 [facility] Work Phone: Comment on above: [facility] [address] [place], [place], [phone] BREAST BIOPSY (CHOOSE SITE)O rdered By: Steel Buffer on 03-29-2017 BREAST BIOPSY (CHOOSE SITE) See Note Normal [facility] Work Phone: Comment on above: Patient: PAT SORTO : 1960 (57/F) Acct Num: [id number] Phys: Nusrat NARAYAN,Adebayo Unit Num: [id number] Loc: LABSPEC Specimen: [id number] Received: 03/29/171713 Spec Type: BREAST BX TISSUES TISSUES: Left breast, NOS ADDENDUM Addendum Number 1 This addendum is added to incorporate an outside pathology consultation report. The case was examined at [facility] (#[id number]) and the following diagnosis was rendered. Left breast, core needle biopsy: Invasive ductal carcinoma, nuclear grade 2. Focal ductal carcinoma in situ, nuclear grade 2, cribriform type. Please see complete above mentioned consultation report in EMR Addendum Signed Julius Sheffield 09/04/17 COMMENT Immunohistochemistry ([id number]) supports the above diagnosis. ER/NY/Hzo7wmi studies are being performed on sections of tumor and the results from this study will be reported separately ([id number]). Please make reference to previous specimen ([id number]) left breast, core biopsy with diagnosis of [...] one cassette. / ARNOLDO:dru 04/02/17 TC:0 CPT: 94703 HEADER OPERATION: Left breast core biopsy PRE-OP DIAGNOSIS: Left breast lump TISSUE SUBMITTED: Left breast tissue ISCHEMIC TIME: 1 minute FIXATION TIME: 101 hours MICROSCOPIC DESCRIPTION Slides are reviewed. MICROSCOPIC DIAGNOSIS Left breast, core biopsy: Invasive ductal carcinoma, nuclear grade 2 (1.3 cm in greatest length). See comment. SJ:dru 04/03/17 Signed Julius Sheffield 04/04/17 [facility] [place], [address] IMMUNOHISTOCHEMISTRYOrdered By: Steel Buffer on 03-29-2017 IMMUNOHISTOCHEMISTRY See Note Normal Comp rehensive Internal Medicine Work Phone: Comment on above: Patient: PAT SORTO : 1960 (57/F) Acct Num: [id number] Phys: Nusrat NARAYAN,Adebayo Unit Num: [id number] Loc: LABSPEC Specimen: [id number] Received: 04/03/17 - 1011 Spec Type: IMMUNO TISSUES TISSUES: Left breast, NOS SPECIMEN INFORMATION: Tissue Source: Left breast Clinical Info: Left breast lump Specimen Number: [id number] CPT code: 43735, 45236 x4, 65452 x3 METHODOLOGY: Deparaffinized sections of prefer/formalin-fixed tissue or PAP/DQ stained slides are incubated with monoclonal/polyclonal antibodies/oligonucleotide probes. Localization is made via biotin free immunoperoxidase method. Appropriate controls are performed and reacted as expected. Results on target cell population are indicated in the following table: RESULTS: ANTIBODY / CLONE RESULT E-Cad (ECH-6) positive CK8 (77keucY67) positive CK5-6 (D5 AND 1684) negative Ki-67 (30-9) positive, moderate P53 (DO-7) positive, weak, rare cells MORPHOMETRIC ANALYSIS ER (clone 6F11) >95%, strong NY (clone 16/1E2) >95%, strong Her-2Neu (clone CB11) 0 The prognostic test for HER2 is performed on formalin-fixed paraffin embedded tissue. A 3+ (positive) staining pattern is defined as intense, homogeneous, complete, circumferential membranous staining in >10% of contiguous tumor cells. A similar weak (2+) staining pattern is interpreted as equivocal. DIEGO follow-up testing is recommended for all equivocal cases. Positivity/negativity for ER/NY is reported if > or < 1% of the tumor cells are immuno- reactive, respectively. The ASCO/CAP criteria is used for scoring. Reference: Journal of Clinical Oncology, 2013; 31:4960-8962 AND 2009; 16:0520-8608. Duration of fixation: 99 Hrs; Sample Adequate: Yes. These assays have not been validated on decalcified tissues. Results should beinterpreted with caution given the likelihood of false negativity on decalcifiedspecimens. These tests were developed and their performance characteristics determined by [facility]. They may not have been cleared or approved by the U.S. Food and Drug Administration. The FDA has determined that such clearance or approval is not necessary. INTERPRETATION: Left breast, core biopsy: Invasive ductal carcinoma, nuclear grade 2. Positive for estrogen receptors (favorable prognostic indicator). Positive for progesterone receptors (favorable prognostic indicator). Negative for overexpression of FYW5llv. SJ:dru 04/04/17 [facility]YSICIAN [facility] INSTITUTION [address] [address] Signed Julius Sheffield 04/04/17 [facility] [address] [place], [place], [phone] CBC W/AUTO DIFF WBC (62091)O rdered By: Steel Buffer on 03-15-2017 Basophils #/vol (Bld) 0.0 {x10E3/uL} Normal 0.0-0.2 [facility] Work Phone: Comment on above: PATIENT WAS FASTINGP ERFORMED BY: [facility] Vfsysl7645 [facility] [id number] Basophils/100 WBC (Bld) 0 % Normal C omprehensive Internal Medicine Work Phone: Comment on above: PATIENT WAS FASTINGP ERFORMED BY: LUIS F [facility] Sihgdf7321 [address] RoadMission Family Health Centerin [place] [id number] Eosinophils #/vol (Bld) 0.1 {x10E3/uL} Normal 0.0-0.4 [facility] Work Phone: Comment on above: PATIENT WAS FASTINGP ERFORMED BY: CB [facility] Vcjbss1533 [address] RoadDuin [place] [id number] Eosinophils/100 WBC (Bld) 1 % Normal [facility] Work Phone: Comment on above: PATIENT WAS FASTINGP ERFORMED BY: [facility] Iefwro[address] [facility] [id number] Erythrocyte distribution width Ratio (RBC) 12.7 % Normal 12.3-15.4 [facility] Work Phone: Comment on above: PATIENT WAS FASTINGP ERFORMED BY: [facility] Ynawuw[address] [facility] [id number] Hematocrit Volume Fraction (Bld) 37.1 % Normal 34.0-46.6 [facility] Work Phone: Comment on above: PATIENT WAS FASTINGP ERFORMED BY: [facility] Pbabvd[address] [facility] [id number] Hemoglobin mass conc (Bld) 12.2 g/dL Normal 11.1-15.9 [facility] Work Phone: Comment on above: Please note refere nce interval change PATIENT WAS FASTINGP ERFORMED BY: [facility] Yqbtho[address] [facility] [place] [id number] Immature granulocytes #/vol (Bld) 0.0 {x10E3/uL} Normal 0.0-0.1 [facility] Work Phone: Comment on above: PATIENT WAS FASTINGP ERFORMED BY: [facility] Jhwvgn[address] [facility] [id number] Immature granulocytes/100 WBC (Bld) 0 % Normal [facility] Work Phone: Comment on above: PATIENT WAS FASTINGP ERFORMED BY: LabCoAcuteCare Health SystemCcsiox8077 [address] [facility] [id number] Lymphocytes #/vol (Bld) 2.0 {x10E3/uL} Normal 0.7-3.1 [facility] Work Phone: Comment on above: PATIENT WAS FASTINGP ERFORMED BY: [facility]Asc[facility] [facility] [id number] Lymphocytes/100 WBC (Bld) 27 % Normal [facility] Work Phone: Comment on above: PATIENT WAS FASTINGP ERFORMED BY: LabAsc[facility]omb[address] [facility] [id number] MCH Entitic mass (RBC) 30.1 pg Normal 26.6-33.0 Co [facility] Internal Medicine Work Phone: Comment on above: PATIENT WAS FASTINGP ERFORMED BY: [facility] Rcnvxy[address] [facility] [id number] MCHC mass conc (RBC) 32.9 g/dL Normal 31.5-35.[address] [facility] Internal Medicine Work Phone: Comment on above: PATIENT WAS FASTINGP ERFORMED BY: LabAsc[facility] [facility] [id number] MCV Entitic volume (RBC) 92 fL Normal 79-97 [facility] Work Phone: Comment on above: PATIENT WAS FASTINGP ERFORMED BY: [facility] [facility] [id number] Monocytes #/vol (Bld) 0.5 {x10E3/uL} Normal 0.1-0.9 [facility] Work Phone: Comment on above: PATIENT WAS FASTINGP ERFORMED BY: [facility] Jqmmbr[address] [facility] [id number] Monocytes/100 WBC (Bld) 7 % Normal C [facility]mpnew [facility] Internal [facility] Work Phone: Comment on above: PATIENT WAS FASTINGP ERFORMED BY: LUIS F Ricks6370 [address] RoadDublin [place] [id number] Neutrophils #/vol (Bld) 5.0 {x10E3/uL} Normal 1.4-7.0 [facility] Work Phone: Comment on above: PATIENT WAS FASTINGP ERFORMED BY: LUIS F Ricks[address] RoadDublin [place] [id number] Neutrophils/100 WBC (Bld) 65 % Normal [facility] Work Phone: Comment on above: PATIENT WAS FASTINGP ERFORMED BY: LUIS F Ricks[address] RoadDublin [place] [id number] Platelets #/vol (Bld) 250 {x10E3/uL} Normal 150-379 [facility] Work Phone: Comment on above: PATIENT WAS FASTINGP ERFORMED BY: LUIS F Ricks[address] RoadDublin [place] [id number] RBC #/vol (Bld) 4.05 {x10E6/uL} Normal 3.77-5.28 [facility] Work Phone: Comment on above: PATIENT WAS FASTINGP ERFORMED BY: LUIS F Ricks[address] Roadblin [place] [id number] WBC #/vol (Bld) 7.7 {x10E3/uL} Normal 3.4-10.8 [facility] Internal Medicine Work Phone: Comment on above: PATIENT WAS FASTINGP ERFORMED BY: LUIS F Byrdlin[address] RoadDublin [place] [id number] LIPID PANEL ([id number])Ordered B y: Steel Buffer on 03-15-2017 Cholesterol in HDL mass conc 40 mg/dL Normal [facility] Work Phone: Comment on above: PATIENT WAS FASTINGP ERFORMED BY: LUIS F Byrdlin[address] RoadDublin [place] [id number] Cholesterol in LDL mass conc 107 mg/dL Abnormal 0-99 [facility] Work Phone: Comment on above: PATIENT WAS FASTINGP ERFORMED BY: CB [facility] Unymph[address] [facility]bl[facility] [place] [id number] Cholesterol in LDL/Cholesterol in HDL mass ratio 2.7 {ratio_units} Normal 0.0-3.2 [facility] Work Phone: Comment on above: LDL/HDL Ratio Men Wo men 1/2 Avg.Risk 1.0 1.5 Avg.Risk 3.6 3.2 2X Avg.Risk 6.2 5.0 3X Avg.Risk 8.0 6.1 PATIENT WAS FASTINGP ERFORMED BY: LUIS F [facility] Xyfssl3989 [address] RoadMission Family Health Centerin [place] [id number] Cholesterol in VLDL mass conc 29 mg/dL Normal 5-40 [facility] Work Phone: Comment on above: PATIENT WAS FASTINGP ERFORMED BY: LUIS F [facility] Bhopxx[address] [facility] [place] [id number] Cholesterol mass conc 176 mg/dL Normal 100-199 Com prehensive Internal Medicine Work Phone: Comment on above: PATIENT WAS FASTINGP ERFORMED BY: LUIS F [facility] Ddaqjq[address] [facility] [place] [id number] Triglyceride mass conc 144 mg/dL Normal 0-149 Co [facility] springfieldehensive [facility] Work Phone: Comment on above: PATIENT WAS FASTINGP ERFORMED BY: LUIS F [facility] Ysiwba[address] [facility] [id number] METABOLIC PANEL, COMPREHENSI VE (22008)Ordered By: Steel Buffer on 03-15-2017 Albumin mass conc 4.1 g/dL Normal 3.5-5.5 Compreh ensive Internal Medicine Work Phone: Comment on above: PATIENT WAS FASTINGP ERFORMED BY: LUIS F [facility] Vodroa[address] [facility] HospitalDublin [place] [id number] Albumin/Globulin mass ratio 1.3 {ratio} Normal 1.2-2.2 [facility] Work Phone: Comment on above: PATIENT WAS FASTINGP ERFORMED BY: LUIS F [facility] Hxcviz[address] [facility] [place] [id number] ALP enzyme act/vol 86 [iU]/L Normal 39-117 [facility] Internal [facility] Work Phone: Comment on above: PATIENT WAS FASTINGP ERFORMED BY: LUIS F [facility] Pilnux3418 [address] RoadDublin [place] [id number] ALT enzyme act/vol 12 [iU]/L Normal 0-32 [facility] Internal Medicine Work Phone: Comment on above: PATIENT WAS FASTINGP ERFORMED BY: [facility] Lapvne99[address] Roadblin [place] [id number] AST enzyme act/vol 19 [iU]/L Normal 0-40 [facility] Internal Medicine Work Phone: Comment on above: PATIENT WAS FASTINGP ERFORMED BY: LUIS F LabChilo Nwdpbd9935 [address] RoadDublin [place] [id number] Bilirubin mass conc 0.4 mg/dL Normal 0.0-1.2 Compr ensive Internal Medicine Work Phone: Comment on above: PATIENT WAS FASTINGP ERFORMED BY: LUIS F [facility]Cross[facility] Bkmnyd2347 [address] RoadMission Family Health Centerin [place] [id number] Calcium mass conc 9.5 mg/dL Normal 8.7-10.2 Compreh page hospitalive Internal Medicine Work Phone: Comment on above: PATIENT WAS FASTINGP ERFORMED BY: LUIS F LabChilo Dhkhhu4857 [address] RoadMission Family Health Centerin [place] [id number] Chloride molar conc 99 mmol/L Normal 96-106 Compr ensive Internal Medicine Work Phone: Comment on above: PATIENT WAS FASTINGP ERFORMED BY: LUIS F [facility] Ytzrnv7754 [address] RoadMission Family Health Centerin [place] [id number] CO2 molar conc 27 mmol/L Normal 18-29 Comprehens leda Internal Medicine Work Phone: Comment on above: PATIENT WAS FASTINGP ERFORMED BY: LUIS F [facility] Sfoqix3149 [address] RoadDublin [place] [id number] Creatinine mass conc 0.95 mg/dL Normal 0.57-1.00 Comp [facility]ensive Internal Medicine Work Phone: Comment on above: PATIENT WAS FASTINGP ERFORMED BY: LUIS F [facility] Vovgcc[address] [facility] [place] [id number] GFR/1.73 sq M predicted among blacks CKD-EPI vol rate/area (S/P/Bld) 76 mL/min/1.73 Normal Comprehe nsive Internal Medicine Work Phone: Comment on above: PATIENT WAS FASTINGP ERFORMED BY: LabCrossroads [facility] Xvyfns[address] [facility]in [place] [id number] GFR/1.73 sq M predicted among non-blacks CKD-EPI vol rate/area (S/P/Bld) 66 mL/min/1.73 Normal [facility] Work Phone: Comment on above: PATIENT WAS FASTINGP ERFORMED BY: LabAsc[facility] [facility] [id number] Globulin mass conc (S) 3.2 g/dL Normal 1.5-4.5 Co mprehensive Internal Medicine Work Phone: Comment on above: PATIENT WAS FASTINGP ERFORMED BY: LabAsc[facility]omb[address] [facility] [id number] Glucose mass conc 99 mg/dL Normal 65-99 Compreh ensive Internal Medicine Work Phone: Comment on above: PATIENT WAS FASTINGP ERFORMED BY: LabAscension Macomb[address] [facility] [id number] Potassium molar conc 4.1 mmol/L Normal 3.5-5.2 Comp rehensive Internal Medicine Work Phone: Comment on above: PATIENT WAS FASTINGP ERFORMED BY: LabCrossroads [facility] Ovdpjk[address] [facility] [id number] Protein mass conc 7.3 g/dL Normal 6.0-8.5 Compreh ensive Internal Medicine Work Phone: Comment on above: PATIENT WAS FASTINGP ERFORMED BY: LabCrossroads [facility] Fiqpsq[address] [facility] [id number] Sodium molar conc 140 mmol/L Normal 134-144 Compreh ensive Internal Medicine Work Phone: Comment on above: PATIENT WAS FASTINGP ERFORMED BY: LUIS F Ricks[address] [facility] [id number] Urea nitrogen mass conc 22 mg/dL Normal 6-24 C omprehensive Internal Medicine Work Phone: Comment on above: PATIENT WAS FASTINGP ERFORMED BY: LUIS F Ricks[address] [facility] [id number] Urea nitrogen/Creatinine mass ratio 23 mg/mg Normal 9-23 [facility] Work Phone: Comment on above: PATIENT WAS FASTINGP ERFORMED BY: LUIS F [address]icks[address] [facility] [id number] MICROALBUMINOrdered By: Syst em Functional Director on 03-15-2017 Albumin DL <= 20 mg/L mass conc (U) 6.1 ug/mL Normal [facility] Work Phone: Comment on above: PATIENT WAS FASTINGP ERFORMED BY: LUIS F [address] [facility] [id number] Albumin/Creatinine mass ratio (U) 3.1 {mg/g_creat} Normal 0.0-30.0 [facility] Work Phone: Comment on above: PATIENT WAS FASTINGP ERFORMED BY: LUIS F Byrdlin[address] [facility] [id number] Creatinine mass conc (U) 196.5 mg/dL Normal [facility] Work Phone: Comment on above: PATIENT WAS FASTINGP ERFORMED BY: LUIS F Byrdlin[address] [facility] [id number] Microscopic ExaminationOrder ed By: Steel Buffer on 03-15-2017 Bacteria LM.HPF #/area (Urine sed) Few Normal [facility] Work Phone: Comment on above: PATIENT WAS FASTINGP ERFORMED BY: LUIS F Byrdlin[address] [facility] [id number] Casts LM Nom (Urine sed) Hyaline casts Normal [facility] Work Phone: Comment on above: PATIENT WAS FASTINGP ERFORMED BY: CB [facility] Sqohxk1511 [facility] [place] [id number] Casts LM Ql (Urine sed) Present Abnormal C omprehensive Internal Medicine Work Phone: Comment on above: PATIENT WAS FASTINGP ERFORMED BY: LUIS F [facility] Gkphee6949 [address] [facility] [place] [id number] Epithelial cells LM.HPF #/area (Urine sed) None seen Normal 0 - 10 [facility] Work Phone: Comment on above: PATIENT WAS FASTINGP ERFORMED BY: [facility] Ifsskd2313 [address] [facility] [place] [id number] Mucus Ql (Urine sed) Present Normal Comp rehensive Internal Medicine Work Phone: Comment on above: PATIENT WAS FASTINGP ERFORMED BY: LUIS F [facility] Ycxaeo8595 [address] [facility] [place] [id number] RBC LM.HPF #/area (Urine sed) None seen Normal 0 - 2 [facility] Work Phone: Comment on above: PATIENT WAS FASTINGP ERFORMED BY: [facility] Bojqac3965 [address] [facility] [place] [id number] WBC LM.HPF #/area (Urine sed) 0-5 Normal 0 - 5 [facility] Work Phone: Comment on above: PATIENT WAS FASTINGP ERFORMED BY: [facility] Xrtrxu0149 [address] [facility] [place] [id number] TSH ([id number])Ordered By: Syste m Functional Director on 03-15-2017 Thyrotropin Qn 1.510 {uIU/mL} Normal 0.450-4.50 0 [facility] Work Phone: Comment on above: PATIENT WAS FASTINGP ERFORMED BY: [facility] Oziuaw6355 [address] [facility] [place] [id number] URINALYSIS, W/ MICRO ([id number]) Ordered By: Steel Buffer on 03-15-2017 Appearance Nom (U) Clear Normal Compre hensive Internal Medicine Work Phone: Comment on above: PATIENT WAS FASTINGP ERFORMED BY: [facility] Snkqgi6972 [address] [facility] [place] [id number] Bilirubin Ql (U) Negative Normal Comprehe nsive Internal Medicine Work Phone: Comment on above: PATIENT WAS FASTINGP ERFORMED BY: LUIS F Ricks6370 [address] RoadDublin [place] [id number] Color Nom (U) Yellow Normal Comprehensi ve Internal Medicine Work Phone: Comment on above: PATIENT WAS FASTINGP ERFORMED BY: LUIS F Ricks6[address] RoadDublin [place] [id number] Glucose Ql (U) Negative Normal Comprehens leda Internal Medicine Work Phone: Comment on above: PATIENT WAS FASTINGP ERFORMED BY: LUIS F Ricks6[address] RoadDublin [place] [id number] Hemoglobin Ql (U) Negative Normal Compreh ensive Internal Medicine Work Phone: Comment on above: PATIENT WAS FASTINGP ERFORMED BY: LUIS F Ricks6[address] RoadDublin [place] [id number] Ketones Ql (U) Negative Normal Comprehens leda Internal Medicine Work Phone: Comment on above: PATIENT WAS FASTINGP ERFORMED BY: LUIS F Ricks6[address] RoadDublin [place] [id number] Leukocyte esterase Test strip Ql (U) Negative Normal [facility] Work Phone: Comment on above: PATIENT WAS FASTINGP ERFORMED BY: LUIS F Rikcs6370 [address] RoadDublin [place] [id number] Microscopic observation LM Nom (Urine sed) MICRON Normal [facility] Work Phone: Comment on above: Microscopic follows if indicated. PATIENT WAS FASTINGP ERFORMED BY: LUIS F Byrdlin6[address] RoadDublin [place] [id number] Microscopic observation LM Nom (Urine sed) See below: Normal [facility] Work Phone: Comment on above: Microscopic was brittany cated and was performed. PATIENT WAS FASTINGP ERFORMED BY: LUIS F Byrdlin6[address] RoadDublin [place] [id number] Nitrite Ql (U) Negative Normal Comprehens leda Internal Medicine Work Phone: Comment on above: PATIENT WAS FASTINGP ERFORMED BY: [employer] Gctvxh2722 [facility] [id number] pH (U) 5.0 [pH] Normal 5.0-7.5 [facility] Work Phone: Comment on above: PATIENT WAS FASTINGP ERFORMED BY: [facility] Wsjcdq8844 [facility] [id number] Protein Ql (U) Negative Normal Comprehens leda Internal Medicine Work Phone: Comment on above: PATIENT WAS FASTINGP ERFORMED BY: [facility] Yhzjge8282 [facility] [id number] Specific gravity Relative Density (U) 1.026 1 Normal 1.005-1.03 0 [facility] Work Phone: Comment on above: PATIENT WAS FASTINGP ERFORMED BY: [facility] Ozrvom8913 [facility] [id number] Urobilinogen Test strip mass conc (U) 0.2 mg/dL Normal 0.2-1.0 [facility] Work Phone: Comment on above: PATIENT WAS FASTINGP ERFORMED BY: LabFreshtake Media Grpnza6204 [facility] [id number] HgA1C , Office ([id number])Ordere d By: Zee Avila on 03-14-2017 Hemoglobin A1c/Hemoglobin.total mass fraction (Bld) 5.9 % Normal 4.6 - 7.1 Comprehensiv e Internal Medicine Work Phone: HPV automatic ([id number])Ordered By: Steel Buffer on 02-11-2017 HPV 16+18+31+33+35+39+45+51 +52+56+58+59+68 DNA Probe+sig amp Ql (Cvx) Negative Normal Comprehen sive Internal Medicine Work Phone: Comment on above: This high-risk HPV t est detects thirteen high-risk types(16/18/31/33/35/39/45/51/52/56/58/59/68) without differentiation. . Source.............C ervix;EndocervixNo. of containers..01 ThinPrep VialPATIENT NOT FASTINGPERFORMED BY: [facility]andaCrossroads [facility] Hanny [place]bph[place] [id number] BY: =G LabCross[facility] [place]anny [place] [id number] Information: [id number] Microscopic observation Other stain Nom (Unsp spec) . Normal [facility] Work Phone: Comment on above: Source.............C ervix;EndocervixNo. of containers..01 ThinPrep VialPATIENT NOT FASTINGPERFORMED BY: FernandaCrossroads Regional [facility] Center Hanny [facility]bph[facility] [place] [id number] BY: =G [facility] Kvsvbsfbrp054 [address] [place] [id number] Information: [id number] Pathology report final diagnosis Narrative SPRCS Normal Comprehensiv e Internal Medicine Work Phone: Comment on above: NEGATIVE FOR INTRAEP ITHELIAL LESION AND MALIGNANCY.THIS SPECIMEN WAS RESCREENED PART OF OUR AEMT PROGRAM.Satisfactory for evaluation. Endocervical and/or squamous metaplasticcells (endocervical component) are present.Z11.51Lilian Morgan, Magnetic Doctor ([facility])Alee Schulte, Supervisory Magnetic Doctor (ASCP) Source.............C ervix;EndocervixNo. of containers..01 ThinPrep VialPATIENT NOT FASTINGPERFORMED BY: LabCrossroads [facility] Udxzkofwju215 J[address]ph[address] [place] [id number] BY: =G LabCross[facility] Xbunzkvuoh072 [place]ph[address] [place] [id number] Information: [id number] HPV automatic (69160) PAPSMR Normal Com prehensive Internal Medicine Work Phone: [...] containers..01 ThinPrep VialPATIENT NOT FASTINGPERFORMED BY: WB [facility]CoSt. [facility] Hospital120 [facility] [id number] BY: =G [facility] Vudizauyrp458 [facility] [id number] Information: [id number] CBC-Complete Blood Cnt No Di ffOrdered By: Steel Buffer on 01-14-2017 Erythrocyte distribution width Ratio (RBC) 12.2 % Normal 11.6-14.6 [facility] Work Phone: Comment on above: [facility] [address] [place], [place], [phone] Hematocrit Volume Fraction (Bld) 37.5 % Normal 37-47 [facility] Work Phone: Comment on above: [facility] [address] [place], [place], [id number] Hemoglobin mass conc (Bld) 12.2 g/dL Normal 12.0-15.0 [facility] [[email or web address] Internal Medicine Work Phone: Comment on above: [facility] [address] [place], [place], [phone] MCH Entitic mass (RBC) 29.6 pg Normal 27.0-32.0 [facility] Internal Medicine Work Phone: Comment on above: [facility] [address] [place], [place], [phone] MCHC mass conc (RBC) 32.5 {g/gl} Normal 32-36 [facility] prehensive Internal Medicine Work Phone: Comment on above: [facility] [address] [place], [address] MCV Entitic volume (RBC) 91.0 fL Normal 81-99 [facility] Work Phone: Comment on above: [facility] [address]vc[address] [place], [address] Platelet mean volume Entitic volume (Bld) 11.6 fL Normal 6.2-12.0 Comprehensi ve Internal Medicine Work Phone: Comment on above: [facility] [address] [place], [address] Platelets #/vol (Bld) 237 10*3/uL Normal 150-450 Co mprehensive Internal Medicine Work Phone: Comment on above: [facility] Q[address]yarf[address] [place], [address] RBC #/vol (Bld) 4.12 {M/mm3} Abnormal 4.2-5.4 Compreh ensive Internal Medicine Work Phone: Comment on above: [facility] [address]ibav[address] [place], [address] WBC #/vol (Bld) 8.9 10*3/uL Normal 4.4-11.0 Comprehe nsive Internal Medicine Work Phone: Comment on above: [facility] [address] [place], [address] CBC-Complete Blood Cnt No Diff 40.7 fL Normal 35.1-43.9 [facility] Work Phone: Comment on above: [facility] [address] [place], [address] Liver ProfileOrdered By: Tejal tem Functional Director on 01-14-2017 Albumin mass conc 3.8 g/dL Normal 3.4-5.0 Compreh ensive Internal Medicine Work Phone: Comment on above: [facility] spital [address] [place], [place], [address] ALP enzyme act/vol 95 U/L Normal 45-117 [facility] Internal Medicine Work Phone: Comment on above: [facility] spital [address] [place], [place], [address] ALT enzyme act/vol 23 U/L Normal 12-78 [facility] Internal Medicine Work Phone: Comment on above: [facility] spital [address]cf[address] [place], [place], [phone] AST enzyme act/vol 19 U/L Normal 15-37 [facility] Internal Medicine Work Phone: Comment on above: [facility] [address] [place], [place], [address] Bilirubin mass conc 0.30 mg/dL Normal 0.20-1.00 [facility] Internal Medicine Work Phone: Comment on above: [facility] [address] [place], [place], [phone] Bilirubin.direct mass conc 0.09 mg/dL Normal 0.00-0.30 [facility] [[email or web address]] Internal Medicine Work Phone: Comment on above: [facility] [address] [place], [place], [address] Globulin mass conc (S) 4.1 g/dL Abnormal 2.3-3.5 Co [facility] Internal Medicine Work Phone: Comment on above: [facility] [address] [place], [address] Protein mass conc 7.9 g/dL Normal 6.4-8.2 [facility] Internal Medicine Work Phone: Comment on above: [facility] [address]qv[address] [place], [place], [address] Prothrombin Time w/INROrdere d By: Steel Buffer on 01-14-2017 INR Coag RelTime (PPP) 1.0 {INR} Normal Co [facility] Work Phone: Comment on above: [facility] [address] [place], [address] Prothrombin time (PT) Coag time (PPP) 13.0 s Normal 11.7-14.9 [facility] Work Phone: Comment on above: [facility] [address] [place], [address] Vitamin D,25 HydroxyOrdered By: Steel Buffer on 01-14-2017 Vitamin D,25 Hydroxy 41.1 ng/mL Normal [facility] Work Phone: Comment on above: Vitamin D 25(OH) Sta tus Range Deficiency <20 ng/mL (50nmol/L) Insuffciency 20 - 30 ng/mL (50 - 75 nmol/L) Sufficiency 30 - 100 ng/mL (75 - 250 nmol/L) Toxicity >100 ng/mL (>250 nmol/L) [facility] [address] [place], [address] Rapid Flu (14001 x 2)Ordered By: Leandra Alex on 06-13-2015 FLUAV Ag IA Ql (Throat) neg a and b Normal [facility] Work Phone: GGTPOrdered By: System Manag er on 01-12-2015 GGTP 40 U/L Normal 5-55 [facility] Work Phone: Comment on above: [facility] [address] [place], [address] Liver ProfileOrdered By: s tem Functional Director on 01-12-2015 Albumin mass conc 3.4 g/dL Normal 3.4-5.0 Compreh [facility] Internal Medicine Work Phone: Comment on above: [facility] [address] [place], [address] ALP enzyme act/vol 95 U/L Normal 50-136 Compre [facility] Internal Medicine Work Phone: Comment on above: [facility] [address] [place], [place], [address] ALT enzyme act/vol 23 U/L Normal 12-78 Compre [facility] Internal Medicine Work Phone: Comment on above: [facility] [address] [place], [place], [address] AST enzyme act/vol 20 U/L Normal 15-37 [facility] Internal [facility] Work Phone: Comment on above: [facility] [address] [place], [address] Bilirubin mass conc 0.30 mg/dL Normal 0.20-1.00 Compr ensive Internal Medicine Work Phone: Comment on above: [facility] [address] [place], [place], [address] Bilirubin.direct mass conc 0.10 mg/dL Normal 0.00-0.30 [facility] Work Phone: Comment on above: [facility] [address] [place], [place], [address] Globulin mass conc (S) 4.0 g/dL Abnormal 2.3-3.5 Co [facility] Work Phone: Comment on above: [facility] [address] [place], [address] Protein mass conc 7.4 g/dL Normal 6.4-8.2 Compreh ensive Internal Medicine Work Phone: Comment on above: [facility] [address] [place], [place], [phone] Comp. Metabolic Panel (14)Or dered By: Steel Buffer on 10-18-2014 Albumin mass conc 4.4 g/dL Normal 3.5-5.5 Compreh ensive Internal Medicine Work Phone: Comment on above: PATIENT NOT FASTINGP ERFORMED BY: LUIS F [facility] Ifjrus5051 [address] [facility] [place] [id number] Information: [id number] Albumin/Globulin mass ratio 1.4 {ratio} Normal 1.1-2.5 [facility] Work Phone: Comment on above: PATIENT NOT FASTINGP ERFORMED BY: LUIS F [facility] Xswngw1759 [facility] [id number] Information: [id number] ALP enzyme act/vol 101 [iU]/L Normal 39-117 [facility] Internal Medicine Work Phone: Comment on above: PATIENT NOT FASTINGP ERFORMED BY: LUIS F [facility] Ymokny9238 [facility] [id number] Information: [id number] ALT enzyme act/vol 19 [iU]/L Normal 0-32 [facility] Internal Medicine Work Phone: Comment on above: PATIENT NOT FASTINGP ERFORMED BY: LUIS F [facility] Oaxkvu0196 [facility] [id number] Information: [id number] AST enzyme act/vol 24 [iU]/L Normal 0-40 [facility] Internal Medicine Work Phone: Comment on above: PATIENT NOT FASTINGP ERFORMED BY: [facility] Noumve7622 [facility] [id number] Information: [id number] Bilirubin mass conc 0.4 mg/dL Normal 0.0-1.2 Compr [facility] Internal Medicine Work Phone: Comment on above: PATIENT NOT FASTINGP ERFORMED BY: LUIS F [facility] Ujldqz8767 [facility] [id number] Information: [id number] Calcium mass conc 10.0 mg/dL Normal 8.7-10.2 Compreh page hospitalive Internal Medicine Work Phone: Comment on above: PATIENT NOT FASTINGP ERFORMED BY: LUIS F [facility] Ygjohd8[address] [facility] [id number] Information: [id number] Chloride molar conc 101 mmol/L Normal 97-108 Compr ensive Internal Medicine Work Phone: Comment on above: PATIENT NOT FASTINGP ERFORMED BY: CB [facility] Cxdhwr0145 [address] [facility] [id number] Information: [id number] CO2 molar conc 25 mmol/L Normal 18-29 Comprehens [facility]a Internal Medicine Work Phone: Comment on above: PATIENT NOT FASTINGP ERFORMED BY: CB [facility] Umtzrh7086 [address] [facility] [id number] Information: [id number] Creatinine mass conc 0.88 mg/dL Normal 0.57-1.00 Comp [facility] Work Phone: Comment on above: PATIENT NOT FASTINGP ERFORMED BY: CB [facility] Qogypc1409 [facility] [id number] Information: [id number] GFR/1.73 sq M predicted among blacks CKD-EPI vol rate/area (S/P/Bld) 86 mL/min/1.73 Normal Comprehe [facility] Internal Medicine Work Phone: Comment on above: PATIENT NOT FASTINGP ERFORMED BY: CB [facility] Gkmexe1394 [facility] [id number] Information: [id number] GFR/1.73 sq M predicted among non-blacks CKD-EPI vol rate/area (S/P/Bld) 74 mL/min/1.73 Normal [facility] Work Phone: Comment on above: PATIENT NOT FASTINGP ERFORMED BY: CB [facility] Gdksgz6144 [facility] [id number] Information: [id number] Globulin mass conc (S) 3.1 g/dL Normal 1.5-4.5 Co [facility] Work Phone: Comment on above: PATIENT NOT FASTINGP ERFORMED BY: ULIS F [facility] Jsjxew4420 [address] Roadblin [place] [id number] Information: [id number] Glucose mass conc 88 mg/dL Normal 65-99 Compreh ensive Internal Medicine Work Phone: Comment on above: PATIENT NOT FASTINGP ERFORMED BY: CB [facility] Zjnhxs7688 [address] [facility] [place] [id number] Information: [id number] Potassium molar conc 4.8 mmol/L Normal 3.5-5.2 Comp rehensive Internal Medicine Work Phone: Comment on above: PATIENT NOT FASTINGP ERFORMED BY: LUIS F [facility] Kfotnt5777 [address] [facility] [place] [id number] Information: [id number] Protein mass conc 7.5 g/dL Normal 6.0-8.5 Compreh ensive Internal Medicine Work Phone: Comment on above: PATIENT NOT FASTINGP ERFORMED BY: CB [facility] Dubzhr1783 [address] [facility] [place] [id number] Information: [id number] Sodium molar conc 141 mmol/L Normal 134-144 Compreh ensive Internal Medicine Work Phone: Comment on above: PATIENT NOT FASTINGP ERFORMED BY: [facility] Eleerh9939 [address] [facility] [place] [id number] Information: [id number] Urea nitrogen mass conc 19 mg/dL Normal 6-24 C omprehensive Internal Medicine Work Phone: Comment on above: PATIENT NOT FASTINGP ERFORMED BY: CB [facility] Fbxssr2930 [address] [facility] [place] [id number] Information: [id number] Urea nitrogen/Creatinine mass ratio 22 mg/mg Normal 9-23 [facility] Work Phone: Comment on above: PATIENT NOT FASTINGP ERFORMED BY: CB [facility] Egpuez9797 [address] Road[address] [place] [id number] Information: [id number] Hepatic Function Panel (7)Or dered By: Steel Buffer on 10-18-2014 Bilirubin.direct mass conc 0.11 mg/dL Normal 0.00-0.40 [facility] Work Phone: Comment on above: PATIENT NOT FASTINGP ERFORMED BY: LUIS F FernandaKendy ByrdUlgapi[address] [facility]erUNC [facility] Nash [id number] Lipid Panel With LDL/HDL Rat ioOrdered By: Steel Buffer on 10-18-2014 Cholesterol in HDL mass conc 41 mg/dL Normal [facility] Work Phone: Comment on above: According to ATP-III Guidelines, HDL-C >59 mg/dL is considered anegative risk factor for CHD. PATIENT NOT FASTINGP ERFORMED BY: LUIS F FernandaKendy ByrdZkiwpx1514 [address] [facility] CallerUNC Health Nash [phone] Cholesterol in LDL mass conc 121 mg/dL Abnormal 0-99 [facility] Work Phone: Comment on above: PATIENT NOT FASTINGP ERFORMED BY: LUIS F FernandaKendy ByrdXccbux2886 [facility] [id number] Cholesterol in LDL/Cholesterol in HDL mass ratio 3.0 {ratio_units} Normal 0.0-3.2 [facility] Work Phone: Comment on above: LDL/HDL Ratio Men Wo men 1/2 Avg.Risk 1.0 1.5 Avg.Risk 3.6 3.2 2X Avg.Risk 6.2 5.0 3X Avg.Risk 8.0 6.1 PATIENT NOT FASTINGP ERFORMED BY: LUIS F FernandaKendy ByrdVgtvjv4271 [facility] [id number] Cholesterol in VLDL mass conc 47 mg/dL Abnormal 5-40 [facility] Work Phone: Comment on above: PATIENT NOT FASTINGP ERFORMED BY: LUIS F LabKendy ByrdTkmhkf6162 [address] [facility] CallerUNC Health Nash [phone] Cholesterol mass conc 209 mg/dL Abnormal 100-199 Com prehensive Internal Medicine Work Phone: Comment on above: PATIENT NOT FASTINGP ERFORMED BY: LUIS F LabKendy ByrdJnoqie3755 [address] [facility] CallerUNC Health Nash [phone] Triglyceride mass conc 236 mg/dL Abnormal 0-149 Co [facility] Internal Medicine Work Phone: Comment on above: PATIENT NOT FASTINGP ERFORMED BY: LUI SF LabCobushra Jgdacp9089 [address] Roadbl[address] [place] [id number] CALCIFEDIOL (28319)Ordered B y: Steel Buffer on 07-16-2014 25-Hydroxyvitamin D2+25-Hydroxyvitamin D3 mass conc 24.3 ng/mL Abnormal 30.0-100.0 [facility] Work Phone: Comment on above: Vitamin D deficiency has been defined by the Friend ofUc Medical Centercine and an Endocrine Society practice guideline as alevel of serum 25-OH vitamin D less than 20 ng/mL (1,2).The Endocrine Society went on to further define vitamin Dinsufficiency as a level between 21 and 29 ng/mL (2).1. IOM (Friend of Medicine). 2010. Dietary reference intakes for calcium and D. [place]: The National Academies Press.2. Luanne MF, Tessy NC, Amanda YOUSIF, et al. Evaluation, treatment, and prevention of vitamin D deficiency: an Endocrine Society clinical practice guideline. JCEM. 2010; 96(7):1911-30. PATIENT NOT FASTINGP ERFORMED BY: LUIS F [facility] Ultigp0826 [address] [facility] [place] [id number] HEPATIC FUNCTION PANEL (8007 6)Ordered By: Steel Buffer on 07-16-2014 Albumin mass conc 4.2 g/dL Normal 3.5-5.5 Compreh [facility] Internal Medicine Work Phone: Comment on above: PATIENT NOT FASTINGP ERFORMED BY: CB [facility] Guhbbq3610 [address] RoadDublin [place] [id number] Information: [id number] ALP enzyme act/vol 158 [iU]/L Abnormal 39-117 Compre [facility] Internal Medicine Work Phone: Comment on above: PATIENT NOT FASTINGP ERFORMED BY: CB [facility] Cxwbjr5109 [address] [facility] [place] [id number] Information: [id number] ALT enzyme act/vol 30 [iU]/L Normal 0-32 [facility] Internal Medicine Work Phone: Comment on above: PATIENT NOT FASTINGP ERFORMED BY: [facility] Dpguii6422 [facility] [id number] Information: [id number] AST enzyme act/vol 26 [iU]/L Normal 0-40 [facility] Internal Medicine Work Phone: Comment on above: PATIENT NOT FASTINGP ERFORMED BY: CB [facility] Zglmjb1325 [facility] [id number] Information: [id number] Bilirubin mass conc 0.4 mg/dL Normal 0.0-1.2 [facility] Internal Medicine Work Phone: Comment on above: PATIENT NOT FASTINGP ERFORMED BY: LabCoAcuteCare Health SystemHaiqfl8015 [facility] [id number] Information: [id number] Bilirubin.direct mass conc 0.12 mg/dL Normal 0.00-0.40 [facility] Work Phone: Comment on above: PATIENT NOT FASTINGP ERFORMED BY: LabCoAcuteCare Health SystemUwsyej1087 [facility] [id number] Information: [id number] Protein mass conc 7.3 g/dL Normal 6.0-8.5 [facility] Internal Medicine Work Phone: Comment on above: PATIENT NOT FASTINGP ERFORMED BY: [facility] Hdrdwq2276 [facility] [id number] Information: [id number] IMMUNOHISTOCHEMISTRYOrdered By: Steel Buffer on 06-07-2014 IMMUNOHISTOCHEMISTRY See Note Normal Comp [facility] Work Phone: Comment on above: Patient: PAT SORTO : 1960 (54/F) Acct Num: [id number] Phys: CyrusNey solis Unit Num: [id number] Loc: [facility] Specimen: [id number] Received: 06/09/141215 Spec Type: IMMUNO TISSUES TISSUES: SPECIMEN INFORMATION: Tissue Source: Liver, biopsy Clinical Info: Cirrhosis Specimen Number: [id number] CPT code: 34773 METHODOLOGY: Deparaffinized sections of prefer/formalin-fixed tissue or [...] developed and their performance characteristics determined by [facility]. They may not have been cleared or approved by the U.S. Food and Drug Administration. The FDA has determined that such clearance or approval is not necessary. INTERPRETATION: Liver biopsy: Decreased number of bile ducts are noted. Comment: Only a limited tissue is present. 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 Immunohistochemistry ([id number]) supports the above diagnosis. This case is [...] one cassette. / SJ:libertad 06/07/14 TC:5 CPT: 38750, 26701 x5 HEADER OPERATION: CT guided liver biopsy [...] Focal piecemeal necrosis is also noted. Immunohistochemistry ([id number]) shows decreased number of bile ducts. However, [...] for PBC/PSC). See Microscopic Description and Comment. ARNOLDO:david 06/09/14 Signed Julius Sheffield 06/10/14 Partial Thromboplast TimeOrd ered By: Steel Buffer on 06-03-2014 aPTT Coag time (Bld) 33.2 s Normal 24.1-36.2 [facility] Work Phone: Comment on above: Has pt arrived? YHas pt arrived? YTest performed at:[facility] [address] [place] [address] Platelet CountOrdered By: Sy stem Functional Director on 06-03-2014 Platelets #/vol (Bld) 296 10*3/uL Normal 150-450 [facility] Work Phone: Comment on above: Has pt arrived? YTes t performed at:[facility] [address] [place] [address] Prothrombin Time w/INROrdere d By: Steel Buffer on 06-03-2014 INR Coag RelTime (PPP) 0.9 {INR} Normal Co [facility] Internal Medicine Work Phone: Comment on above: Has pt arrived? YHas pt arrived? YTest performed at:[facility] [address] [place] [address] Prothrombin time (PT) Coag time (PPP) 12.7 s Normal 11.7-14.9 [facility] [[email or web address] Internal Medicine Work Phone: Comment on above: Has pt arrived? YHas pt arrived? YTest performed at:[facility] [address] [place] [address] Liver ProfileOrdered By: Tejal tem Functional Director on 04-28-2014 Albumin mass conc 3.7 g/dL Normal 3.4-5.0 [facility] Internal Medicine Work Phone: Comment on above: Test performed at:[facility] [address] [place] [address] ALT enzyme act/vol 81 U/L Abnormal 12-78 [facility] Internal Medicine Work Phone: Comment on above: Test performed at:[facility] [address] [place] [address] AST enzyme act/vol 48 U/L Abnormal 15-37 [facility] Internal Medicine Work Phone: Comment on above: Test performed at:[facility] [address] [place] [address] Bilirubin mass conc 0.40 mg/dL Normal 0.00-4.00 [facility] Internal Medicine Work Phone: Comment on above: Test performed at:[facility] [address] [place] [address] Bilirubin.direct mass conc 0.14 mg/dL Normal 0.00-0.30 [facility] Work Phone: Comment on above: Test performed at:[facility] [address] [place] [address] Globulin mass conc (S) 4.3 g/dL Abnormal 2.7-4.2 Co mprehensive Internal Medicine Work Phone: Comment on above: Test performed at:[facility] [address] [place] [address] Protein mass conc 8.0 g/dL Normal 6.4-8.2 Compreh ensive Internal Medicine Work Phone: Comment on above: Test performed at:[facility] [address] [place] [address] Liver Profile 286 U/L Abnormal 50-136 Comprehensi ve Internal Medicine Work Phone: Comment on above: Test performed at:[facility] [address] [place] [address] Protein Electroph, SOrdered By: Steel Buffer on 04-28-2014 Albumin mass conc 3.8 g/dL Normal 3.2-5.6 Compreh ensive Internal Medicine Work Phone: Comment on above: Test performed at:[facility] [address] [place] [address] Albumin/Globulin mass ratio 1.2 {ratio} Normal 0.7-2.0 [facility] Work Phone: Comment on above: Test performed at:[facility] [address] [place] [address] Globulin mass conc (S) 3.3 g/dL Normal 2.0-4.5 Co mprehensive Internal Medicine Work Phone: Comment on above: Test performed at:[facility] [address] [place] [address] Protein mass conc 7.1 g/dL Normal 6.0-8.5 Compreh ensive Internal Medicine Work Phone: Comment on above: Test performed at:[facility] [address] [place] [address] Protein Electroph, S 1.0 g/dL Normal 0.6-1.3 Comp rehensive Internal Medicine Work Phone: Comment on above: Test performed at:[facility] [address] [place] [address] Protein Electroph, S 0.7 g/dL Normal 0.4-1.2 Comp rehensive Internal Medicine Work Phone: Comment on above: Test performed at:[facility] [address] [place] [address] Protein Electroph, S 0 g/dL Normal Comp rehensive Internal Medicine Work Phone: Comment on above: Test performed at:[facility] [address] [place] [address] Protein Electroph, S 0.3 g/dL Normal 0.1-0.4 Comp rehensive Internal Medicine Work Phone: Comment on above: Test performed at:[facility] [address] [place] [address] Protein Electroph, S Comment Normal Comp rehensive Internal Medicine Work Phone: Comment on above: The SPE pattern appe ars essentially unremarkable. Evidenceof monoclonal protein is not apparent.Performed at: [facility] [address] [id number] Director: Eddie Mclaughlin PhD, Phone: [phone] Test performed at:[facility] [address] [place] [address] Protein electrophore sis scan will follow via computer,mail, or bar welder delivery. Protein Electroph, S 1.4 g/dL Normal 0.5-1.6 Comp rehensive Internal Medicine Work Phone: Comment on above: Test performed at:[facility] [address] [place], [place] [id number] Vitamin D,25 HydroxyOrdered By: Steel Buffer on 04-28-2014 Vitamin D,25 Hydroxy 17.2 ng/mL Normal Comp rehensive Internal Medicine Work Phone: Comment on above: Vitamin D 25(OH) Sta tus Range Deficiency <20 ng/mL (50nmol/L) Insuffciency 20 - 30 ng/mL (50 - 75 nmol/L) Sufficiency 30 - 100 ng/mL (75 - 250 nmol/L) Toxicity >100 ng/mL (>250 nmol/L) Test performed at:[facility] [address] [place] [address] Basic Metabolic Profile (BMP )Ordered By: Steel Buffer on 04-13-2014 Calcium mass conc 8.8 mg/dL Normal 8.5-10.1 Compreh ensive Internal Medicine Work Phone: Comment on above: Test performed at:[facility] [address] [place] [address] Chloride molar conc 103 mmol/L Normal 98-107 Compr ehensive Internal Medicine Work Phone: Comment on above: Test performed at:[facility] [address] [place] [address] CO2 molar conc 30.0 mmol/L Normal 21.0-32.0 Comprehen [facility] Internal Medicine Work Phone: Comment on above: Test performed at:[facility] [address] [place] [address] Creatinine mass conc 0.8 mg/dL Normal 0.6-1.0 Comp rehensive Internal Medicine Work Phone: Comment on above: Test performed at:[facility] [address] [place] [address] GFR/1.73 sq M predicted among non-blacks MDRD vol rate/area (S/P/Bld) 79 mL/min/{1.73_m2} Normal Comp rehensive Internal Medicine Work Phone: Comment on above: Test performed at:[facility] [address] [place] [address] Glucose mass conc 97 mg/dL Normal 70-110 Compreh ensive Internal Medicine Work Phone: Comment on above: Test performed at:[facility] [address] [place] [address] Potassium molar conc 3.9 mmol/L Normal 3.5-5.1 Comp rehensive Internal Medicine Work Phone: Comment on above: Test performed at:[facility] [address] [place] [address] Sodium molar conc 135 mmol/L Abnormal 136-145 Compreh ensive Internal Medicine Work Phone: Comment on above: Test performed at:[facility] [address] [place] [address] Urea nitrogen mass conc 12 mg/dL Normal 7-18 C omprehensive Internal Medicine Work Phone: Comment on above: Test performed at:[facility] [address] [place] [address] Basic Metabolic Profile (BMP) 2 1 Abnormal 5-15 [facility] Medicine Work Phone: Comment on above: Test performed at:[facility] [address] [place] [address] Basic Metabolic Profile (BMP) 15.0 {RATIO} Normal 10-20 [facility] Work Phone: Comment on above: Test performed at:[facility] [address] [place] [address] Basic Metabolic Profile (BMP) 96 mL/min Normal [facility] Internal Medicine Work Phone: Comment on above: Test performed at:[facility] [address] [place], [place] [address] CBC-Complete Blood Cnt No Di ffOrdered By: Steel Buffer on 04-13-2014 Erythrocyte distribution width Ratio (RBC) 12.5 % Normal 11.6-14.6 [facility] [[email or web address]] Internal Medicine Work Phone: Comment on above: Test performed at:[facility] [address] [place] [address] Hematocrit Volume Fraction (Bld) 39.3 % Normal 37-47 [facility] [[email or web address]] Internal Medicine Work Phone: Comment on above: Test performed at:[facility] [address] [place] [address] Hemoglobin mass conc (Bld) 12.8 g/dL Normal 12.0-15.0 [facility] [[email or web address]] Internal Medicine Work Phone: Comment on above: Test performed at:[facility] [address] [place] [address] MCH Entitic mass (RBC) 29.2 pg Normal 27.0-32.0 [facility] Internal Medicine Work Phone: Comment on above: Test performed at:[facility] [address] [place] [address] MCHC mass conc (RBC) 32.6 {g/gl} Normal 32-36 [facility] Internal Medicine Work Phone: Comment on above: Test performed at:[facility] [address] [place] [address] MCV Entitic volume (RBC) 89.7 fL Normal 81-99 [facility] [[email or web address]] Internal Medicine Work Phone: Comment on above: Test performed at:[facility] [address] [place] [address] Platelet mean volume Entitic volume (Bld) 11.2 fL Normal 6.2-12.0 [facility] Internal [facility] Work Phone: Comment on above: Test performed at:[facility] [address] [place] [address] Platelets #/vol (Bld) 284 10*3/uL Normal 150-450 Co mprehensive Internal Medicine Work Phone: Comment on above: Test performed at:[facility] [address] [place] [address] RBC #/vol (Bld) 4.38 {M/mm3} Normal 4.2-5.4 Compreh ensive Internal Medicine Work Phone: Comment on above: Test performed at:[facility] [address] [place] [address] WBC #/vol (Bld) 8.2 10*3/uL Normal 4.4-11.0 Comprehe nsive Internal Medicine Work Phone: Comment on above: Test performed at:[facility] [address] [place] [address] CBC-Complete Blood Cnt No Diff 40.1 fL Normal 35.1-43.9 [facility] Work Phone: Comment on above: Test performed at:[facility] [address] [place] [address] Hemoglobin Glyclated (HGB A1 C) (10983)Ordered By: Steel Buffer on 03-19-2014 Hemoglobin A1c/Hemoglobin.total mass fraction (Bld) 5.9 % Abnormal 4.8-5.6 Comprehensiv e Internal Medicine Work Phone: Comment on above: . Increased risk for diabetes: 5.7 - 6.4 Diabetes: >6.4 Glycemic control for adults with diabetes: <7.0 PATIENT NOT FASTINGP ERFORMED BY: LabCoAc[facility]Care Health SystemVivcrx7861 [facility] [id number] Information: [id number] MIACREOrdered By: System Man ager on 03-10-2014 Creatinine mass conc 5.8 {mg/g_CRE} Normal [facility] Medicine Work Phone: MIACRE 8.2 mg/L Normal [facility] Internal Medicine Work Phone: MIACRE 140.5 mg/dL Normal [facility] Internal Medicine Work Phone: UAOrdered By: Steel Buffer on 03-10-2014 UA Negative Normal [facility] Internal [...] 90-96% ofpatients with primary biliary cirrhosis.Performed at: [facility] [address] [id number] Director: Eddie Mclaughlin PhD, Phone: [phone] Has pt arrived? Y AMYOrdered By: System Manage r on 03-03-2014 ROD 58 U/L Normal [...] of patients with primary biliary cirrhosis.Performed at: [address] [id number] Director: Eddie Mclaughlin PhD, Phone: [phone] Has pt arrived? Y CMPOrdered By: System Manage r on 03-03-2014 Albumin mass conc 3.5 g/dL Normal 3.4-5.0 Compreh ensive Internal Medicine Work Phone: Albumin/Globulin mass ratio 0.8 {RATIO} Abnormal 0.9-2.4 [facility] Work Phone: ALP enzyme act/vol 247 U/L Abnormal 50-136 [facility] Internal Medicine Work Phone: ALT enzyme act/vol 51 U/L Normal 12-78 [facility] Internal Medicine Work Phone: AST enzyme act/vol 32 U/L Normal 15-37 [facility] Internal Medicine Work Phone: Bilirubin mass conc 0.40 mg/dL Normal 0.00-4.00 Compr ensive Internal Medicine Work Phone: Calcium mass conc 9.4 mg/dL Normal 8.5-10.1 Compreh ensive Internal Medicine Work Phone: Chloride molar conc 104 mmol/L Normal 98-107 Compr ensive Internal Medicine Work Phone: CO2 molar conc 24.0 mmol/L Normal 21.0-32.0 Comprehen [facility] Internal Medicine Work Phone: Creatinine mass conc 0.8 mg/dL Normal 0.6-1.0 [facility] Work Phone: GFR/1.73 sq [...] mass conc 17 mg/dL Normal 7-18 C omprehensive Internal Medicine Work Phone: Urea nitrogen/Creatinine mass ratio 21.3 {RATIO} Abnormal 10-20 [facility] Work Phone: CMP 96 mL/min Normal [facility] Work Phone: CMP 7 1 Normal 5-15 [facility] Work Phone: LIPASEOrdered By: System Sagoon margarito on 03-03-2014 LIPASE 204 U/L Normal 70-290 [facility] Work Phone: Comment on above: Has pt arrived? YHas pt arrived? YHas pt arrived? Y LIPIDOrdered By: System Lisakey hamilton on 03-03-2014 Cholesterol in HDL mass conc [...] YHas pt arrived? Y Thin prep Pap ([id number])Ordered By: Steel Buffer on 11-30-2013 Microscopic observation Other stain Nom (Unsp spec) . Normal [facility] Work Phone: Comment on above: Source.............C ervical;EndocervicalNo. of containers..01 CYTYC Thin Prep VialPATIENT NOT FASTINGPERFORMED BY: nivio[address] [id number] Information: [id number] Pathology report final diagnosis Narrative SPRCS Normal Comprehensiv e Internal Medicine Work Phone: Comment on above: NEGATIVE FOR INTRAEP ITHELIAL LESION AND MALIGNANCY.Satisfactory for evaluation. Endocervical and/or squamous metaplasticcells (endocervical component) are present.V72.31 ; Routine gynecological examinationRachel Paddy Magnetic Doctor (ASCP) Source.............C ervical;EndocervicalNo. of containers..01 CYTYC Thin Prep VialPATIENT NOT FASTINGPERFORMED BY: n[address] [id number] Information: [id number] Thin prep Pap (65333) PAPSMR Normal Com prehensive Internal Medicine Work Phone: [...] CYTYC Thin Prep VialPATIENT NOT FASTINGPERFORMED BY: [employer] ([employer])[address] [id number] Information: [id number] (821 05)Ordered By: Steel Buffer on 11-18-2013 AFP.tumor marker mass conc 3.6 ng/mL Normal 0.0-8.3 [facility] Work Phone: Comment on above: Jesse ECLIA methodol ogy PATIENT NOT FASTINGP ERFORMED BY: [employer] [id number] [employer] FinancialUNC Health Nash [id number] HEPATIC FUNCTION PANEL (2816 6)Ordered By: Steel Buffer on 11-18-2013 Bilirubin.direct mass conc 0.11 mg/dL Normal 0.00-0.40 [facility] Work Phone: Comment on above: PATIENT NOT FASTINGP ERFORMED BY: [employer] Dexozx4301 [employer] Link FinancialUNC Health Nash [id number] Metabolic Panel, Comprehensi ve (36888)Ordered By: Steel Buffer on 11-18-2013 Albumin mass conc 3.9 g/dL Normal 3.5-5.5 Compreh ensive Internal Medicine Work Phone: Comment on above: PATIENT NOT FASTINGP ERFORMED BY: [employer] [address]fpa[address] [id number] Information: [id number] Albumin/Globulin mass ratio 1.3 {ratio} Normal 1.1-2.5 [facility] Work Phone: Comment on above: PATIENT NOT FASTINGP ERFORMED BY: CB [facility] Geepae[address] RoadDublin [place] [id number] Information: [id number] ALP enzyme act/vol 174 [iU]/L Abnormal 39-117 [facility] Internal [facility] Work Phone: Comment on above: PATIENT NOT FASTINGP ERFORMED BY: CB [facility] Bwaset[address] RoadDublin [place] [id number] Information: [id number] ALT enzyme act/vol 29 [iU]/L Normal 0-32 [facility] Internal Medicine Work Phone: Comment on above: PATIENT NOT FASTINGP ERFORMED BY: CB [facility] Rtasuz5959 [address] RoadDublin [place] [id number] Information: [id number] AST enzyme act/vol 32 [iU]/L Normal 0-40 [facility] Internal Medicine Work Phone: Comment on above: PATIENT NOT FASTINGP ERFORMED BY: CB [facility] Iqpkct[address] RoadDublin [place] [id number] Information: [id number] Bilirubin mass conc 0.3 mg/dL Normal 0.0-1.2 Compr ensive Internal Medicine Work Phone: Comment on above: PATIENT NOT FASTINGP ERFORMED BY: CB [facility] Oatguq36[address] RoadDublin [place] [id number] Information: [id number] Calcium mass conc 9.2 mg/dL Normal 8.7-10.2 Compreh page hospitalive Internal Medicine Work Phone: Comment on above: PATIENT NOT FASTINGP ERFORMED BY: CB [facility] Oszxil8730 [address] RoadDublin [place] [id number] Information: [id number] Chloride molar conc 102 mmol/L Normal 97-108 Compr ensive Internal Medicine Work Phone: Comment on above: PATIENT NOT FASTINGP ERFORMED BY: CB [facility] Lmtvte8076 [address] RoadDublin [place] [id number] Information: [id number] CO2 molar conc 24 mmol/L Normal 18-29 Comprehens leda Internal Medicine Work Phone: Comment on above: PATIENT NOT FASTINGP ERFORMED BY: [facility] Kkiupt[address] [id number] Information: [id number] Creatinine mass conc 0.75 mg/dL Normal 0.57-1.00 Comp rehensive Internal Medicine Work Phone: Comment on above: PATIENT NOT FASTINGP ERFORMED BY: [address] [id number] Information: [id number] GFR/1.73 sq M predicted among blacks CKD-EPI vol rate/area (S/P/Bld) 105 mL/min/1.73 Normal Comprehe nsive Internal Medicine Work Phone: Comment on above: PATIENT NOT FASTINGP ERFORMED BY: [place] [id number] [facility] [id number] Information: [id number] GFR/1.73 sq M predicted among non-blacks CKD-EPI vol rate/area (S/P/Bld) 91 mL/min/1.73 Normal [facility] Internal Medicine Work Phone: Comment on above: PATIENT NOT FASTINGP ERFORMED BY: [place] [id number] [facility] [id number] Information: [id number] Globulin mass conc (S) 3.1 g/dL Normal 1.5-4.5 Co [facility] medicineensive Internal Medicine Work Phone: Comment on above: PATIENT NOT FASTINGP ERFORMED BY: [place] [id number] [facility] [id number] Information: [id number] Glucose mass conc 84 mg/dL Normal 65-99 Compreh ensive Internal Medicine Work Phone: Comment on above: PATIENT NOT FASTINGP ERFORMED BY: Lab78 Day StreetDublin [place] [id number] Information: [id number] Potassium molar conc 4.0 mmol/L Normal 3.5-5.2 Comp rehensive Internal Medicine Work Phone: Comment on above: PATIENT NOT FASTINGP ERFORMED BY: LUIS F LabCoAcuteCare Health SystemMflscr1258 [facility] [id number] Information: [id number] Protein mass conc 7.0 g/dL Normal 6.0-8.5 Compreh ensive Internal Medicine Work Phone: Comment on above: PATIENT NOT FASTINGP ERFORMED BY: LabCoBrandy Ville [id number] [facility] [id number] Information: [id number] Sodium molar conc 137 mmol/L Normal 134-144 Compreh ensive Internal Medicine Work Phone: Comment on above: PATIENT NOT FASTINGP ERFORMED BY: LabCoBrandy Ville [id number] [facility] [id number] Information: [id number] Urea nitrogen mass conc 18 mg/dL Normal 6-24 C omprehensive Internal Medicine Work Phone: Comment on above: PATIENT NOT FASTINGP ERFORMED BY: LabCoBrandy [place] [id number] [facility] [id number] Information: [id number],[id number] Urea nitrogen/Creatinine mass ratio 24 mg/mg Abnormal 9-23 [facility] Work Phone: Comment on above: PATIENT NOT FASTINGP ERFORMED BY: LabCoBrandy [place]ille [id number] [facility] [id number] Information: [id number] AMYLASE (55161)Ordered By: Maggi ramireztem Functional Director on 11-02-2013 Amylase enzyme act/vol 61 U/L Normal 31-124 [facility] Work Phone: Comment on above: PATIENT NOT FASTINGP ERFORMED BY: [facility] Htzjgt3033 [facility] [id number] ANTI-NONA-1 [id number] ([id number])Orde red By: Steel Buffer on 11-02-2013 Nona-1 extractable nuclear Ab Qn (S) <0.2 Normal 0.0-0.9 [facility] Work Phone: Comment on above: PATIENT NOT FASTINGP ERFORMED BY: Thumb Friendly Mbuylp0719 weeSPINin [place] [id number] ANTI-Sm (ANTI REED ANTIBODY ) ([id number])Ordered By: Steel Buffer on 11-02-2013 Ribonucleoprotein extractable nuclear Ab Qn (S) 0.5 {AI} Normal 0.0-0.9 [facility] Work Phone: Comment on above: PATIENT NOT FASTINGP ERFORMED BY: [facility] TechnologySt[facility] [id number] Reed extractable nuclear Ab Qn (S) <0.2 Normal 0.0-0.9 [facility] Work Phone: Comment on above: PATIENT NOT FASTINGP ERFORMED BY: Alces TechnologySt. Luke's Hospital [id number] ASM (ANTI SMOOTH MUSCLE ANTI BODY) ([id number])Ordered By: Steel Buffer on 11-02-2013 Actin IgG Qn 13 {Units} Normal 0-19 Comprehensiv e Internal Medicine Work Phone: Comment on above: Negative 0 - 19 Weak positive 20 - 30 Moderate to strong positive >30 . Actin Antibodies are found in 52-85% of patients with autoimmune hepatitis or chronic active hepatitis and in 22% of patients with primary biliary cirrhosis. PATIENT NOT FASTINGP ERFORMED BY: Thumb Friendly Qqmgnw7596 weeSPINSt. Luke's Hospital [id number] LIPASE ([id number])Ordered By: Sy stem Functional Director on 11-02-2013 Lipase enzyme act/vol 45 U/L Normal 0-59 [facility] prehensive Internal Medicine Work Phone: Comment on above: PATIENT NOT FASTINGP ERFORMED BY: Thumb Friendly Gfniki0813 True Link FinancialUNC Health Nash [id number] TSH (THYROID STIMULATING HOR TIM) (83139)Ordered By: Steel Buffer on 11-02-2013 Thyrotropin Qn 1.260 {uIU/mL} Normal 0.450-4.50 0 [facility] Work Phone: Comment on above: PATIENT NOT FASTINGP ERFORMED BY: LUIS F [facility] Mpowuf0305 [facility] [id number] Information: [id number] GGTOrdered By: System Manage r on 10-15-2013 Gamma glutamyl transferase enzyme act/vol 257 [iU]/L Abnormal 0-60 [facility] Work Phone: Comment on above: PATIENT WAS FASTINGP ERFORMED BY: [facility] Rdsexq1611 [facility] [id number] Information: [id number] Written AuthorizationOrdered By: Steel Buffer on 10-15-2013 Written Authorization WAR Normal Com prehensive Internal Medicine Work Phone: Comment on above: Written Authorizatio n Received.Authorization received from [facility] [id number] by Micki Reynolds PATIENT WAS FASTINGP ERFORMED BY: [facility] Saubit1459 [facility] [id number] CBC WITH MANUAL DIFF ([id number]) Ordered By: Steel Buffer on 10-14-2013 Basophils #/vol (Bld) 0.1 {x10E3/uL} Normal 0.0-0.2 [facility] Work Phone: Comment on above: PATIENT WAS FASTINGP ERFORMED BY: [facility] Krayyg2635 [facility] [id number] Information: [id number] Basophils/100 WBC (Bld) 1 % Normal 0-3 C omprehensive Internal Medicine Work Phone: Comment on above: PATIENT WAS FASTINGP ERFORMED BY: [facility] Lnwmbd6052 [facility] [id number] Information: [id number] Eosinophils #/vol (Bld) 0.2 {x10E3/uL} Normal 0.0-0.4 [facility] Work Phone: Comment on above: PATIENT WAS FASTINGP ERFORMED BY: [facility]6[address] [facility] [id number] Information: [id number] Eosinophils/100 WBC (Bld) 3 % Normal 0-5 [facility] Work Phone: Comment on above: PATIENT WAS FASTINGP ERFORMED BY: [address] [id number] Information: 404773,[id number] Erythrocyte distribution width Ratio (RBC) 13.1 % Normal 12.3-15.4 [facility] Work Phone: Comment on above: PATIENT WAS FASTINGP ERFORMED BY: [address] [id number] Information: [id number] Hematocrit Volume Fraction (Bld) 38.2 % Normal 34.0-46.6 [facility] Work Phone: Comment on above: PATIENT WAS FASTINGP ERFORMED BY: [address] [id number] Information: [id number] Hemoglobin mass conc (Bld) 12.8 g/dL Normal 11.1-15.9 [facility] Work Phone: Comment on above: PATIENT WAS FASTINGP ERFORMED BY: [address] [id number] Information: [id number] Immature granulocytes #/vol (Bld) 0.0 {x10E3/uL} Normal 0.0-0.1 [facility] Work Phone: Comment on above: PATIENT WAS FASTINGP ERFORMED BY: LabErin [place] 1824770 [facility] [id number] Information: [id number] Immature granulocytes/100 WBC (Bld) 0 % Normal 0-2 [facility] Work Phone: Comment on above: PATIENT WAS FASTINGP ERFORMED BY: [facility]6[address] [facility] [id number] Information: [id number],[id number] Lymphocytes #/vol (Bld) 1.8 {x10E3/uL} Normal 0.7-3.1 [facility] Work Phone: Comment on above: PATIENT WAS FASTINGP ERFORMED BY: [address] [id number] Information: [id number],[id number] Lymphocytes/100 WBC (Bld) 22 % Normal 14-46 [facility] Work Phone: Comment on above: PATIENT WAS FASTINGP ERFORMED BY: [address] [id number] Information: 616600,[id number] MCH Entitic mass (RBC) 29.9 pg Normal 26.6-33.0 [facility] Internal Medicine Work Phone: Comment on above: PATIENT WAS FASTINGP ERFORMED BY: [address] [id number] Information: [id number],[id number] MCHC mass conc (RBC) 33.5 g/dL Normal 31.5-35.[address] [facility] Internal Medicine Work Phone: Comment on above: PATIENT WAS FASTINGP ERFORMED BY: [address] [id number] Information: [id number],[id number] MCV Entitic volume (RBC) 89 fL Normal 79-97 [facility] [[email or web address]] Internal Medicine Work Phone: Comment on above: PATIENT WAS FASTINGP ERFORMED BY: [place] 6051370 [facility] [id number] Information: [id number],[id number] Monocytes #/vol (Bld) 0.5 {x10E3/uL} Normal 0.1-0.9 [facility] [[email or web address]] Internal Medicine Work Phone: Comment on above: PATIENT WAS FASTINGP ERFORMED BY: [place] 6051370 [facility] [id number] Information: [id number],[id number] Monocytes/100 WBC (Bld) 6 % Normal 4-12 [facility] Internal Medicine Work Phone: Comment on above: PATIENT WAS FASTINGP ERFORMED BY: LUIS F FernandaKendy Kvyqka14[address] [facility] [id number] Information: [id number],[id number] Neutrophils #/vol (Bld) 5.9 {x10E3/uL} Normal 1.4-7.0 [facility] Work Phone: Comment on above: PATIENT WAS FASTINGP ERFORMED BY: LUIS F [address] [id number] Information: [id number] Neutrophils/100 WBC (Bld) 68 % Normal 40-74 [facility] Work Phone: Comment on above: PATIENT WAS FASTINGP ERFORMED BY: LUIS F [place] 3949670 [facility] [id number] Information: [id number] Platelets #/vol (Bld) 283 {x10E3/uL} Normal 150-379 [facility] Work Phone: Comment on above: PATIENT WAS FASTINGP ERFORMED BY: LUIS F Byrdlin6[address] [facility] [id number] Information: [id number],[id number] RBC #/vol (Bld) 4.28 {x10E6/uL} Normal 3.77-5.[address] [facility] Internal Medicine Work Phone: Comment on above: PATIENT WAS FASTINGP ERFORMED BY: [facility]Asc[facility]6[address] [facility] [id number] Information: 861930,[id number] WBC #/vol (Bld) 8.5 {x10E3/uL} Normal 3.4-10.8 [facility] Internal Medicine Work Phone: Comment on above: PATIENT WAS FASTINGP ERFORMED BY: LUIS F LabErin [place] 1824770 [facility] [id number] Information: 144855,[id number] LIPID PANEL (42164)Ordered B y: Steel Buffer on 10-14-2013 Cholesterol in HDL mass conc 46 mg/dL Normal [facility] Work Phone: Comment on above: According to ATP-III Guidelines, HDL-C >59 mg/dL is considered anegative risk factor for CHD. PATIENT WAS FASTINGP ERFORMED BY: LUIS F Shawn Ricks6[address] [facility] [id number] Cholesterol in LDL mass conc 110 mg/dL Abnormal 0-99 [facility] Work Phone: Comment on above: PATIENT WAS FASTINGP ERFORMED BY: LUIS F Noelbushra Anhdis7[address] [facility] [id number] Cholesterol in LDL/Cholesterol in HDL mass ratio 2.4 {ratio_units} Normal 0.0-3.2 [facility] Work Phone: Comment on above: PATIENT WAS FASTINGP ERFORMED BY: LUIS F Noelbushra Wnbsrs2550 [facility] [id number] Cholesterol in VLDL mass conc 31 mg/dL Normal 5-40 [facility] Work Phone: Comment on above: PATIENT WAS FASTINGP ERFORMED BY: LUIS F Noelbushra Ywfjhj6440 [facility] [id number] Cholesterol mass conc 187 mg/dL Normal 100-199 Com prehensive Internal Medicine Work Phone: Comment on above: PATIENT WAS FASTINGP ERFORMED BY: LUIS F Noelbushra Ojffqj6454 [facility] [id number] Triglyceride mass conc 156 mg/dL Abnormal 0-149 [facility] springfieldehensive Internal Medicine Work Phone: Comment on above: PATIENT WAS FASTINGP ERFORMED BY: LUIS F LabChilobushra Wyjwwn5129 [facility] [id number] METABOLIC PANEL, COMPREHENSI VE (74883)Ordered By: Steel Buffer on 10-14-2013 Albumin mass conc 4.0 g/dL Normal 3.5-5.5 Compreh ensive Internal Medicine Work Phone: Comment on above: PATIENT WAS FASTINGP ERFORMED BY: LUIS F LabCobushra ByrdNxizdl9915 [address] RoadDublin [place] [id number] Albumin/Globulin mass ratio 1.4 {ratio} Normal 1.1-2.5 [facility] [[email or web address]] Internal Medicine Work Phone: Comment on above: PATIENT WAS FASTINGP ERFORMED BY: LUIS F LabCobushra ByrdIamlyd4808 Uriarte RoadDublin [place] [id number] ALP enzyme act/vol 232 [iU]/L Abnormal 39-117 [facility] Internal Medicine Work Phone: Comment on above: PATIENT WAS FASTINGP ERFORMED BY: LUIS F [facility] Cefzop1846 [address] RoadDublin [place] [id number] ALT enzyme act/vol 31 [iU]/L Normal 0-32 [facility] Internal Medicine Work Phone: Comment on above: PATIENT WAS FASTINGP ERFORMED BY: LUIS F Byrdlin6370 [address] RoadDublin [place] [id number] AST enzyme act/vol 31 [iU]/L Normal 0-40 [facility] Internal Medicine Work Phone: Comment on above: PATIENT WAS FASTINGP ERFORMED BY: LUIS F LabKendy ByrdHmmhui0395 [address] RoadDublin [place] [id number] Bilirubin mass conc 0.5 mg/dL Normal 0.0-1.2 [facility] Internal Medicine Work Phone: Comment on above: PATIENT WAS FASTINGP ERFORMED BY: LUIS F LabKendy ByrdEmujed9676 [address] RoadDublin [place] [id number] Calcium mass conc 9.8 mg/dL Normal 8.7-10.2 [facility] Internal Medicine Work Phone: Comment on above: PATIENT WAS FASTINGP ERFORMED BY: LUIS F [facility] Thslcf9903 [address] RoadDublin [place] [id number] Chloride molar conc 99 mmol/L Normal 97-108 [facility] Internal Medicine Work Phone: Comment on above: PATIENT WAS FASTINGP ERFORMED BY: LUIS F LabCobushra ByrdJguihx2298 [address] RoadDublin [place] [id number] CO2 molar conc 24 mmol/L Normal 18-29 Comprehens leda Internal Medicine Work Phone: Comment on above: PATIENT WAS FASTINGP ERFORMED BY: LUIS F LabCobushra ByrdCbxazm[address] [facility] [id number] Creatinine mass conc 0.67 mg/dL Normal 0.57-1.00 Comp rehensive Internal Medicine Work Phone: Comment on above: PATIENT WAS FASTINGP ERFORMED BY: LUIS F LabCobushra ByrdJamlqn[address] [facility] [id number] GFR/1.73 sq M predicted among blacks CKD-EPI vol rate/area (S/P/Bld) 115 mL/min/1.73 Normal Comprehe nsive Internal Medicine Work Phone: Comment on above: PATIENT WAS FASTINGP ERFORMED BY: LUIS F Byrdlin[address] [facility] [id number] GFR/1.73 sq M predicted among non-blacks CKD-EPI vol rate/area (S/P/Bld) 100 mL/min/1.73 Normal [facility] Work Phone: Comment on above: PATIENT WAS FASTINGP ERFORMED BY: LUIS F Byrdlin[address] [facility] [id number] Globulin mass conc (S) 2.9 g/dL Normal 1.5-4.5 Co mprehensive Internal Medicine Work Phone: Comment on above: PATIENT WAS FASTINGP ERFORMED BY: LUIS F LabCobushra ByrdUjmlam7[address] [facility] [id number] Glucose mass conc 99 mg/dL Normal 65-99 Compreh ensive Internal Medicine Work Phone: Comment on above: PATIENT WAS FASTINGP ERFORMED BY: LUIS F LabCobushra Svtqec5049 [address] [facility] [id number] Potassium molar conc 4.6 mmol/L Normal 3.5-5.2 Comp rehensive Internal Medicine Work Phone: Comment on above: PATIENT WAS FASTINGP ERFORMED BY: LUIS F LabCobushra Kwldnd1785 [address] [facility] [id number] Protein mass conc 6.9 g/dL Normal 6.0-8.5 Compreh ensive Internal Medicine Work Phone: Comment on above: PATIENT WAS FASTINGP ERFORMED BY: LUIS F LabKendy ByrdPwbfcm0254 [address] [place] Centerbl[place] [id number] Sodium molar conc 138 mmol/L Normal 134-144 Compreh ensive Internal Medicine Work Phone: Comment on above: PATIENT WAS FASTINGP ERFORMED BY: LUIS F Ricks[address] [facility] [place] [id number] Urea nitrogen mass conc 12 mg/dL Normal 6-24 C omprehensive Internal Medicine Work Phone: Comment on above: PATIENT WAS FASTINGP ERFORMED BY: LUIS F Ricks[address] [facility] [id number] Urea nitrogen/Creatinine mass ratio 18 mg/mg Normal 9-23 [facility] Work Phone: Comment on above: PATIENT WAS FASTINGP ERFORMED BY: LUIS F Byrdlin6[address] [facility] [id number] MICROALBUMINOrdered By: Syst em Functional Director on 10-14-2013 Albumin DL <= 20 mg/L mass conc (U) 11.4 ug/mL Normal 0.0-17.0 [facility] Work Phone: Comment on above: PATIENT WAS FASTINGP ERFORMED BY: LUIS F Byrdlin[address] [facility] [id number] Albumin/Creatinine mass ratio (U) 8.5 {mg/g_creat} Normal 0.0-30.0 [facility] Work Phone: Comment on above: PATIENT WAS FASTINGP ERFORMED BY: LUIS F LabCobushra Urblhc8[address] [place] [facility] [id number] Creatinine mass conc (U) 133.8 mg/dL Normal 15.0-278.0 [facility] Work Phone: Comment on above: PATIENT WAS FASTINGP ERFORMED BY: LUIS F LabChilo Blzmvr[address] [facility]in [place] [id number] TSH ([id number])Ordered By: Jess m Functional Director on 10-14-2013 Thyrotropin Qn 1.690 {uIU/mL} Normal 0.450-4.50 0 [facility] Work Phone: Comment on above: PATIENT WAS FASTINGP ERFORMED BY: LUIS F [facility] Btdcku2794 [address] [facility] [id number] SPINE, CERVICAL (ROUTINE)Ord ered By: Steel Buffer on 10-11-2011 SPINE, CERVICAL (ROUTINE) See Note Normal [facility] Work Phone: Comment on above: PROCEDURE: MRI CERVI RENNY SPINE WITHOUT CONTRAST REASON FOR EXAM: Female, [...] Chaudhary M.D.October 11, 2011 at 3:21:03 PM [id number] Signed LL/LL If you are the referring physician and would like to consult with theradiologist who provided this interpretation, please contact Lila Zafar M.D. at [phone]. If this radiologist is unavailable, you willbe directed to another radiologist to assist. If you are a patient with a question regarding this report, pleasecontactyour referring physician directly. Professional Interpretation Provided By: [employer], Phone , Dictated on 10/11/11922 by FATMATA NARAYAN,ANNAATranscribed on 10/11/112219 by ITS IMPORTSign by LILA CHAUDHARY MD on 10/11/112220 Sign by: LILA CHAUDHARY MD CERV SPINE,MIN 4 VIEWSOrdere d By: Steel Buffer on 08-29-2011 CERV SPINE,MIN 4 VIEWS See Note Normal Co mprehensive Internal Medicine Work Phone: [...] EDTElectronically Signed GP/GP Professional Interpretation Provided By: [facility], , To consult with a radiologist regarding this report, please call our [id number] line @ Dictated on 08/29/11 1649 by Adam NARAYAN,ChemariDebbiranscribed on 08/30/11 1249 by ITS IMPORTSign by Adam NARAYAN,Wil on 08/30/11 1250 Sign by: Adam NARAYAN,Wil Systemic Lupus Profile (8181 [id number])Ordered By: Steel Buffer on 11-10-2010 Chromatin Ab Qn <0.2 Normal 0.0-0.9 [facility] Internal Medicine Work Phone: Comment on above: PATIENT NOT FASTINGP ERFORMED BY: CB [facility] Vkovoi[address] Next CallerUNC Health Nash [id number] Information: [id number] DNA double strand Ab Qn (S) 17 {IU/mL} Abnormal 0-9 [facility] Work Phone: Comment on above: Negative <5 Equivoca l 5 - 9 Positive >9 PATIENT NOT FASTINGP ERFORMED BY: CB [facility] Oosmoj8[address] [facility] Surgical TechnologiesSt. Luke's Hospital [id number] Information: 469603,[id number] Rheumatoid factor Qn 7.0 {IU/mL} Normal 0.0-13.9 [facility] Internal [facility] Work Phone: Comment on above: PATIENT NOT FASTINGP ERFORMED BY: CB [facility] Suvbyz1402 [address] Next CallerUNC Health Nash [id number] Information: [id number] Ribonucleoprotein extractable nuclear Ab Qn (S) 0.4 {AI} Normal 0.0-0.9 [facility] Work Phone: Comment on above: PATIENT NOT FASTINGP ERFORMED BY: CB [facility] Usxnxc4784 [address] [employer] Technologiesin [place] [id number] Information: [id number],[id number] Sjogrens syndrome-A extractable nuclear Ab Qn (S) <0.2 Normal 0.0-0.9 [facility] Work Phone: Comment on above: PATIENT NOT FASTINGP ERFORMED BY: [facility] Aglxxt4246 [address] RoadMission Family Health Centerin [place] [id number] Information: 157906,[id number] Sjogrens syndrome-B extractable nuclear Ab Qn (S) <0.2 Normal 0.0-0.9 [facility] Work Phone: Comment on above: PATIENT NOT FASTINGP ERFORMED BY: [facility] Njzyqx4523 Urir[address] [facility] [id number] Information: 167133,[id number] Reed extractable nuclear Ab Qn (S) <0.2 Normal 0.0-0.9 [facility] Work Phone: Comment on above: PATIENT NOT FASTINGP ERFORMED BY: [facility] Dqlevb6005 [address] [facility] [id number] Information: [id number],[id number] Antinuclear Antibodies Direc tOrdered By: Steel Buffer on 10-10-2010 Nuclear Ab Ql (S) Positive Abnormal Compreh ensive Internal Medicine Work Phone: Comment on above: PATIENT WAS FASTINGP ERFORMED BY: [facility] Wczoeu5018 [facility] [id number] BY: Lab[address] [id number] C-Reactive Protein, QuantOrd ered By: Steel Buffer on 10-10-2010 CRP mass conc 3.8 mg/L Normal 0.0-4.9 Comprehensi ve Internal Medicine Work Phone: Comment on above: PATIENT WAS FASTINGP ERFORMED BY: [facility] Ospvyo7020 [address] [facility] [id number] BY: Lab[address] [id number] CBC With Differential/Platel etOrdered By: Steel Buffer on 10-10-2010 Basophils #/vol (Bld) 0.0 {x10E3/uL} Normal 0.0-0.2 [facility] Work Phone: Comment on above: PATIENT WAS FASTINGP ERFORMED BY: LUIS F [facility] Rgcndp4024 [facility] [id number] BY: [address] [id number] Basophils/100 WBC (Bld) 1 % Normal 0-3 C omprehensive Internal Medicine Work Phone: Comment on above: PATIENT WAS FASTINGP ERFORMED BY: [facility] Mfkrwg2873 [facility] [id number] BY: [address] [id number] Eosinophils #/vol (Bld) 0.2 {x10E3/uL} Normal 0.0-0.4 [facility] Work Phone: Comment on above: PATIENT WAS FASTINGP ERFORMED BY: LabCoAcuteCare Health SystemEdxgxu0312 [facility] [id number] BY: [address] [id number] Eosinophils/100 WBC (Bld) 3 % Normal 0-7 [facility] Work Phone: Comment on above: PATIENT WAS FASTINGP ERFORMED BY: [facility] Coxqkz5858 [facility] [id number] BY: [address] [id number] Erythrocyte distribution width Ratio (RBC) 14.7 % Normal 11.7-15.0 [facility] Work Phone: Comment on above: PATIENT WAS FASTINGP ERFORMED BY: [facility] Kollpv5301 [facility] [id number] BY: [address] [id number] Hematocrit Volume Fraction (Bld) 36.6 % Normal 34.0-44.0 [facility] Work Phone: Comment on above: PATIENT WAS FASTINGP ERFORMED BY: LabCoAcuteCare Health SystemBlqnwo4933 [facility] [id number] BY: [address] [id number] Hemoglobin mass conc (Bld) 11.9 g/dL Normal 11.5-15.0 [facility] Work Phone: Comment on above: PATIENT WAS FASTINGP ERFORMED BY: LabCoBrandy V[place] 6872170 [facility] [id number] BY: [address] [id number] Immature granulocytes #/vol (Bld) 0.0 {x10E3/uL} Normal 0.0-0.1 [facility] Work Phone: Comment on above: PATIENT WAS FASTINGP ERFORMED BY: LabErin [place] 1824770 [facility] [id number] BY: [address] [id number] Immature granulocytes/100 WBC (Bld) 0 % Normal 0-2 [facility] Work Phone: Comment on above: Please note refere nce interval change PATIENT WAS FASTINGP ERFORMED BY: LabE[place] 1824770 [facility] [id number] BY: Lab[address] [id number] Lymphocytes #/vol (Bld) 2.2 {x10E3/uL} Normal 0.7-4.5 [facility] Work Phone: Comment on above: PATIENT WAS FASTINGP ERFORMED BY: LabCoAcuteCare Health SystemChedzx0201 [facility] [id number] BY: [address] [id number] Lymphocytes/100 WBC (Bld) 30 % Normal 14-46 [facility] Work Phone: Comment on above: PATIENT WAS FASTINGP ERFORMED BY: LUIS F [facility] Uwtvmr6058 [facility] [id number] BY: [address] [id number] MCH Entitic mass (RBC) 27.4 pg Normal 27.0-34.0 [facility] Internal Medicine Work Phone: Comment on above: PATIENT WAS FASTINGP ERFORMED BY: LUIS F [facility] Hwsbsb5579 [facility] [id number] BY: [address] [id number] MCHC mass conc (RBC) 32.5 g/dL Normal 32.0-36.[address] [facility] Internal Medicine Work Phone: Comment on above: PATIENT WAS FASTINGP ERFORMED BY: LUIS F [facility] Sbhwwh6466 [facility] [id number] BY: [address] [id number] MCV Entitic volume (RBC) 84 fL Normal 80-98 [facility] Work Phone: Comment on above: PATIENT WAS FASTINGP ERFORMED BY: LUIS F [facility] Cycxxg6963 [facility] [id number] BY: [address] [id number] Monocytes #/vol (Bld) 0.6 {x10E3/uL} Normal 0.1-1.0 [facility] [[email or web address]] Internal Medicine Work Phone: Comment on above: PATIENT WAS FASTINGP ERFORMED BY: [facility] Ddeeqj8353 [facility] [id number] BY: [address] [id number] Monocytes/100 WBC (Bld) 8 % Normal 4-13 C [facility] Internal Medicine Work Phone: Comment on above: PATIENT WAS FASTINGP ERFORMED BY: LUIS F [facility] Wevdbl9453 [facility] [id number] BY: LabCo[address] [id number] Neutrophils #/vol (Bld) 4.4 {x10E3/uL} Normal 1.8-7.8 [facility] Work Phone: Comment on above: PATIENT WAS FASTINGP ERFORMED BY: LUIS F [facility] Siikmx6810 [facility] [id number] BY: LabCo[address] [id number] Neutrophils/100 WBC (Bld) 58 % Normal 40-74 [facility] Work Phone: Comment on above: PATIENT WAS FASTINGP ERFORMED BY: LUIS F [facility] Dvujvk4288 [facility] [id number] BY: Lab[address] [id number] Platelets #/vol (Bld) 286 {x10E3/uL} Normal 140-415 [facility] Work Phone: Comment on above: PATIENT WAS FASTINGP ERFORMED BY: LUIS F [address] [facility] [id number] BY: LabCo[address] [id number] RBC #/vol (Bld) 4.34 {x10E6/uL} Normal 3.80-5.[address] [facility] Internal Medicine Work Phone: Comment on above: PATIENT WAS FASTINGP ERFORMED BY: LUIS F [facility] Hqqbjw8466 [facility] [id number] BY: Lab[address] [id number] WBC #/vol (Bld) 7.3 {x10E3/uL} Normal 4.0-10.5 [facility] Internal Medicine Work Phone: Comment on above: PATIENT WAS FASTINGP ERFORMED BY: LUIS F Cohen Qrbuid9894 [facility] [id number] BY: [address] [id number] CCP Antibodies IgG/IgAOrdere d By: Steel Buffer on 10-10-2010 Cyclic citrullinated peptide IgA+IgG IA Qn 3 {units} Normal 0-19 Comprehens [facility] Internal Medicine Work Phone: Comment on above: Negative <20 Weak po sitive 20 - 39 Moderate positive 40 - 59 Strong positive >59 PATIENT WAS FASTINGP ERFORMED BY: Apps & ZertsAcuteCare Health SystemMtpzqn1239 [facility] [id number] BY: [address] [id number] Comp. Metabolic Panel (14)Or dered By: Steel Buffer on 10-10-2010 Albumin mass conc 3.9 g/dL Normal 3.5-5.5 Compreh ensive Internal Medicine Work Phone: Comment on above: PATIENT WAS FASTINGP ERFORMED BY: [employer] Jbrqcl1676 [facility] [id number] BY: [address] [id number] Albumin/Globulin mass ratio 1.1 {ratio} Normal 1.1-2.5 [facility] Internal Medicine Work Phone: Comment on above: PATIENT WAS FASTINGP ERFORMED BY: [employer] Vttvwr7095 [facility] [id number] BY: [address] [id number] ALP enzyme act/vol 123 [iU]/L Normal 25-150 Compre [facility] Internal Medicine Work Phone: Comment on above: PATIENT WAS FASTINGP ERFORMED BY: [employer] Zlhtoh0220 [facility] [id number] BY: [address] [id number] ALT enzyme act/vol 26 [iU]/L Normal 0-40 Compre [facility] Internal Medicine Work Phone: Comment on above: PATIENT WAS FASTINGP ERFORMED BY: LUIS F [facility] Zxdlex68[address] [place] [place] [facility] [place] [id number] BY: LabCo[address] [id number] AST enzyme act/vol 27 [iU]/L Normal 0-40 [facility] Internal [facility] Work Phone: Comment on above: PATIENT WAS FASTINGP ERFORMED BY: LUIS F [facility] Qhkvhz0162 [address] RoadUNC Health Nash [id number] BY: Lab[address] [id number] Bilirubin mass conc 0.3 mg/dL Normal 0.0-1.2 Compr ensive Internal Medicine Work Phone: Comment on above: PATIENT WAS FASTINGP ERFORMED BY: LUIS F [facility] Xgxnrm8083 [address] [facility] [id number] BY: [address] [id number] Calcium mass conc 9.0 mg/dL Normal 8.7-10.2 Compreh page hospitalive Internal Medicine Work Phone: Comment on above: PATIENT WAS FASTINGP ERFORMED BY: LUIS F [facility] Mmiufg5704 [address] [facility] [place] [id number] BY: LabCo[address] [id number] Chloride molar conc 103 mmol/L Normal 97-108 Compr ensive Internal Medicine Work Phone: Comment on above: PATIENT WAS FASTINGP ERFORMED BY: CB [facility] Liotyk3136 Uriarte RoadDublin [place] [id number] BY: [address] [id number] CO2 molar conc 23 mmol/L Normal 20-32 Comprehens [facility] Internal Medicine Work Phone: Comment on above: PATIENT WAS FASTINGP ERFORMED BY: CB [facility] Torxlj4300 [address] RoadUNC Health Nash [id number] BY: UserEvents[address] [id number] Creatinine mass conc 0.78 mg/dL Normal 0.57-1.00 [facility] Work Phone: Comment on above: PATIENT WAS FASTINGP ERFORMED BY: mobintent6[address] [facility] [id number] BY: UserEvents[address] [id number] GFR/1.73 sq M predicted among blacks MDRD vol rate/area (S/P/Bld) 102 mL/min/{1.73_m2} Normal [facility] Internal Medicine Work Phone: Comment on above: Note: A persistent e GFR <60 mL/min/1.73 m2 (3 months or more) mayindicate chronic kidney disease. An eGFR >59 mL/min/1.73 m2 with anelevated urine protein also may indicate chronic kidney disease.Calculated using CKD-EPI formula. PATIENT WAS FASTINGP ERFORMED BY: mobintent6[address] [facility] [id number] BY: UserEvents[address] [id number] GFR/1.73 sq M predicted among non-blacks CKD-EPI vol rate/area (S/P/Bld) 88 mL/min/1.73 Normal [facility] Internal Medicine Work Phone: Comment on above: PATIENT WAS FASTINGP ERFORMED BY: mobintent6[address] [facility] [id number] BY: Apps [employer] Zerts[address] [id number] Globulin mass conc (S) 3.6 g/dL Normal 1.5-4.5 Co [facility] Internal Medicine Work Phone: Comment on above: PATIENT WAS FASTINGP ERFORMED BY: mobintent6[address] [facility] [id number] BY: Lab[address] [id number] Glucose mass conc 102 mg/dL Abnormal 65-99 Compreh ensive Internal Medicine Work Phone: Comment on above: PATIENT WAS FASTINGP ERFORMED BY: LUIS F [facility] Damfcs4924 [facility] [id number] BY: LabCo[address] [id number] Potassium molar conc 3.9 mmol/L Normal 3.5-5.2 Comp rehensive Internal Medicine Work Phone: Comment on above: PATIENT WAS FASTINGP ERFORMED BY: LUIS F [facility] Fitswq7047 [facility] [id number] BY: LabCo[address] [id number] Protein mass conc 7.5 g/dL Normal 6.0-8.5 Compreh ensive Internal Medicine Work Phone: Comment on above: PATIENT WAS FASTINGP ERFORMED BY: LUIS F [facility] Ypqfgq3798 [facility] [id number] BY: LabCo[address] [id number] Sodium molar conc 140 mmol/L Normal 135-145 Compreh ensive Internal Medicine Work Phone: Comment on above: PATIENT WAS FASTINGP ERFORMED BY: LUIS F [facility] Puoihe5834 [facility] [id number] BY: LabCo[address] [id number] Urea nitrogen mass conc 19 mg/dL Normal 6-24 C omprehensive Internal Medicine Work Phone: Comment on above: PATIENT WAS FASTINGP ERFORMED BY: [facility] Dpvvdp4336 [facility] [id number] BY: LabCo[address] [id number] Urea nitrogen/Creatinine mass ratio 24 mg/mg Abnormal 9-23 [facility] Internal Medicine Work Phone: Comment on above: PATIENT WAS FASTINGP ERFORMED BY: LUIS F [facility] Skjkao5899 Kalani VazquezUNC Health Nash [id number] BY: WILLIAM [facility] Tzuxiwalsi7733 [facility] [id number] HAND,MIN 3 VIEWSOrdered By: Steel Buffer on 10-10-2010 HAND,MIN 3 VIEWS See Note [...] 1101 by Shirlene Arora MDranscribed on 10/10/10 1609 by ITS IMPORTSign by Wil Arora MD on 10/10/10 1610 Sign by: Wil Arora MD PROCEDURE: X-RAY - R IGHT WRIST REASON FOR EXAM: Female, 50 years [...] ITS IMPORTSign by Wil Arora MD on 10/10/101611 Sign by: Wil Arora MD PROCEDURE: X-RAY - L EFT WRIST REASON FOR EXAM: Female, 50 years [...] of the wrist. Dictated on 10/10/101100 by Naldo Arora MDbed on 10/10/102317 by ITS IMPORTSign by Wil Arora MD on 10/10/102318 Sign by: Wil Arora MD PROCEDURE: X-RAY [...] 10/10/101100 by Darien Arora MDribed on 10/10/10 1610 by ITS IMPORTSign by Wil Arora MD on 10/10/10 1611 Sign by: Wil Arora MD Lipid Panel With LDL/HDL Rat ioOrdered By: Steel Buffer on 10-10-2010 Cholesterol in HDL mass conc 39 mg/dL Abnormal [facility] Medicine Work Phone: Comment on above: According to ATP-III Guidelines, HDL-C >59 mg/dL is considered anegative risk factor for CHD. PATIENT WAS FASTINGP ERFORMED BY: CB [facility] Hvvoki33[address] [facility] [id number] BY: [facility] [address] [id number] Cholesterol in LDL mass conc 111 mg/dL Abnormal 0-99 [facility] Work Phone: Comment on above: PATIENT WAS FASTINGP ERFORMED BY: CB [facility] Nmcuat1246 [facility] [id number] BY: [facility] [address] [id number] Cholesterol in LDL/Cholesterol in HDL mass ratio 2.8 {ratio_units} Normal 0.0-3.2 [facility] Work Phone: Comment on above: PATIENT WAS FASTINGP ERFORMED BY: CB [facility] Hjvdxh0522 [facility] [id number] BY: [facility] [address] [id number] Cholesterol in VLDL mass conc 32 mg/dL Normal 5-40 [facility] Internal Medicine Work Phone: Comment on above: PATIENT WAS FASTINGP ERFORMED BY: CB [facility] Tycheb9917 [facility] [id number] BY: [facility] [address] [id number] Cholesterol mass conc 182 mg/dL Normal 100-199 [facility] prehensive Internal Medicine Work Phone: Comment on above: PATIENT WAS FASTINGP ERFORMED BY: CB [facility] Rcxwjq5767 [facility] [id number] BY: Lab[address] [id number] Triglyceride mass conc 159 mg/dL Abnormal 0-149 [facility] Internal Medicine Work Phone: Comment on above: PATIENT WAS FASTINGP ERFORMED BY: CB [facility] Ymhyyy4439 [facility] [id number] BY: Lab[address] [id number] Microalb/Creat Ratio, Randm UrOrdered By: Steel Buffer on 10-10-2010 Albumin DL <= 20 mg/L mass conc (U) 24.2 ug/mL Abnormal 0.0-17.0 [facility] Work Phone: Comment on above: PATIENT WAS FASTINGP ERFORMED BY: CB [facility] Dogzlj0664 [facility] [id number] BY: Lab[address] [id number] Albumin/Creatinine mass ratio (U) 9.7 {mg/g_creat} Normal 0.0-30.0 [facility] Work Phone: Comment on above: PATIENT WAS FASTINGP ERFORMED BY: [facility] Kowzqn6563 [facility] [id number] BY: Lab[address] [id number] Creatinine mass conc (U) 249.8 mg/dL Normal 15.0-278.0 [facility] Medicine Work Phone: Comment on above: PATIENT WAS FASTINGP ERFORMED BY: CB [facility] Eyjyeg8369 [facility] [id number] BY: Lab[address] [id number] Rheumatoid Arthritis FactorO rdered By: Steel Buffer on 10-10-2010 Rheumatoid factor Qn 6.5 {IU/mL} Normal 0.0-13.9 [facility] Work Phone: Comment on above: PATIENT WAS FASTINGP ERFORMED BY: CB [facility] Vvikqy5997 [facility] [id number] BY: [employer]erts[address] [id number] Sedimentation Rate-Westergre nOrdered By: Steel Buffer on 10-10-2010 ESR Velocity (Bld) 23 mm/h Normal 0-56 [facility] Internal Medicine Work Phone: Comment on above: PATIENT WAS FASTINGP ERFORMED BY: CB [facility] Rjfrqt8331 [facility] [id number] BY: LabFreshtake Media[address] [id number] TSHOrdered By: System Manage r on 10-10-2010 Thyrotropin Qn 1.480 {uIU/mL} Normal 0.450-4.50 0 [facility] [[email or web address]] Internal Medicine Work Phone: Comment on above: PATIENT WAS FASTINGP ERFORMED BY: CB [facility] Wjmvzn1785 [facility] [id number] BY: Apps [employer]erts[address] [id number] CHEST, PA AND LATERALOrdered By: Steel Buffer on 04-21-2010 CHEST, PA AND LATERAL See Note Normal [facility] Work Phone: Comment on above: [...] 04/21/10 1525 by NICCI BUTTTranscribed on 04/23/10 2649 by ITS IMPORTSign by NICCI BUTT on 04/23/10 0758 Sign by: NICCI BUTT Rapid Flu (46700 x 2)Ordered By: Evelina Owens on 04-21-2010 FLUAV Ag IA Ql (Throat) Negative Normal C omprehensive Internal Medicine Work Phone: Thin prep Pap ([id number])Ordered By: Steel Buffer on 09-19-2009 Microscopic observation Other stain Nom (Unsp spec) . Normal [facility] Medicine Work Phone: Comment on above: LMP / Prev Treat...L TF=[id number]. of containers..01 CYTYC Thin Prep VialPATIENT NOT FASTINGPERFORMED BY: Trampoline[address] [id number] Information: ADD [id number] Pathology report final diagnosis Narrative SPRCS Normal Comprehensiv e Internal Medicine Work Phone: Comment on above: NEGATIVE FOR INTRAEP ITHELIAL LESION AND MALIGNANCY.Satisfactory for evaluation. Endocervical and/or squamous metaplasticcells (endocervical component) are present.V72.31 ; Routine gynecological examinationGail Casper Magnetic Doctor LMP / Prev Treat...L PD=[id number]. of containers..01 CYTYC Thin Prep VialPATIENT NOT FASTINGPERFORMED BY: Metaresolver[address] [place], [place] [address]PetroDEGarfield Memorial Hospital [id number] Information: ADD [id number] Thin prep Pap (15341) PAPSMR Normal Com prehensive Internal Medicine Work Phone: [...] testing was performed.. LMP / Prev Treat...L MC=[id number]. of containers..01 CYTYC Thin Prep VialPATIENT NOT FASTINGPERFORMED BY: [facility] [address] [facility] ABBE [id number] Information: ADD [id number] CBCD,SMEAR DIFFOrdered By: Maggi ystem Functional Director on 09-15-2009 Erythrocyte distribution width Ratio (RBC) 12.6 % Normal 11.6-14.6 [facility] Work Phone: Hematocrit Volume Fraction (Bld) 34.8 % Abnormal 37-47 [facility] Work Phone: Hemoglobin mass conc (Bld) 11.8 g/dL Abnormal 12.0-16.0 [facility] Work Phone: Lymphocytes/100 WBC (Bld) 23 % Normal 19-41 [facility] Work Phone: MCH Entitic mass (RBC) 28.2 pg Normal 27.0-32.0 Co mprehensive Internal Medicine Work Phone: MCHC mass conc [...] #/vol (Bld) 287 10*3/uL Normal 150-450 [facility]fieldehens[facility] Internal Medicine Work Phone: Platelets #/vol (Bld) SeeNote Normal Com prehensive Internal Medicine Work Phone: Comment on above: Result: ADEQUATE RBC #/vol (Bld) 4.19 {M/mm3} Abnormal 4.2-5.4 Compreh ensive Internal Medicine Work Phone: WBC #/vol (Bld) 9.2 10*3/uL Normal 4.4-11.0 Comprehe nsive Internal Medicine Work Phone: CBCD,SMEAR DIFF 100 1 Normal [facility] Internal Medicine Work Phone: CBCD,SMEAR DIFF 69 % Normal 47-70 [facility] Internal Medicine Work Phone: COMP METABOLICOrdered By: Sadiq stem Functional Director on 09-15-2009 Albumin mass conc 3.4 g/dL Normal 3.4-5.0 [facility] Internal Medicine Work Phone: Albumin/Globulin mass ratio 0.8 {RATIO} Abnormal 0.9-2.4 [facility] [[email or web address]] Internal Medicine Work Phone: ALP enzyme act/vol 123 U/L Normal 50-136 [facility] Internal Medicine Work Phone: ALT enzyme act/vol 30 U/L Normal 12-78 [facility] Internal Medicine Work Phone: Anion gap molar conc 7 mmol/L Normal 5-[address] [facility] Internal Medicine Work Phone: AST enzyme act/vol 21 U/L Normal 15-37 [facility] Internal Medicine Work Phone: Bilirubin mass conc 0.40 mg/dL Normal 0.00-1.00 [facility] Internal Medicine Work Phone: Calcium mass conc 8.9 mg/dL Normal 8.5-10.1 [facility] Internal Medicine Work Phone: Chloride molar conc 101 mmol/L Normal 98-107 [facility] Internal Medicine Work Phone: CO2 molar conc 28.0 mmol/L Normal 21.0-32.0 [facility] Internal Medicine Work Phone: Creatinine mass conc 0.8 mg/dL Normal 0.6-1.[address] [facility] Internal Medicine Work Phone: GFR/1.73 sq M predicted among blacks MDRD vol rate/area (S/P/Bld) 98 mL/min/{1.73_m2} Normal Comprehe [facility] Internal Medicine Work Phone: GFR/1.73 sq M.predicted MDRD vol rate/area 81 mL/min/{1.73_m2} Normal Comprehen sive Internal Medicine Work Phone: Globulin mass conc [...] Medicine Work Phone: COMPLETE UAOrdered By: Jess m Functional Director on 09-15-2009 Bacteria LM.HPF #/area (Urine sed) 2+ Normal [facility] Internal Medicine Work Phone: Clarity Nom (U) SeeNote Normal Comprehen [facility] Internal Medicine Work Phone: Comment on above: [...] WBC #/vol (Bld) SeeNote Normal 0-5 [facility]prehen [facility] Internal Medicine Work Phone: Comment on above: Result: 0-5 SEEN COMPLETE UA SeeNote Normal [facility] Internal Medicine Work Phone: Comment on above: Result: NEGATIVE Result: NORM C+C Result: 01-30 SEEN COMPLETE UA 0 SEEN Normal [facility] Medicine Work Phone: COMPLETE UA 5.5 1 Normal 5.0-8.0 [facility] Work Phone: COMPLETE UA >=1.030 Normal 1.002-1.03 0 [facility] Medicine Work Phone: COMPLETE UA 0.2 EU/dl Normal 0.2 - 1.0 [facility] Work Phone: LIPIDOrdered By: System Lisa hamilton on 09-15-2009 Cholesterol in HDL mass [...] > or = 500 mg/dL MICROALBOrdered By: Martine jimenez on 09-15-2009 Creatinine mass conc 11.3 {mg/g_CRE} Normal [facility] Medicine Work Phone: Creatinine mass conc 141.7 mg/dL Normal Com prehensive Internal Medicine Work Phone: MICROALB 16.1 mg/L Normal [facility] Medicine Work Phone: TSHOrdered By: System [employer] r on 09-15-2009 Thyrotropin Qn 1.69 {uIU/mL} Normal 0.358-3.74 Compreh ensive Internal Medicine Work Phone: CHEST, PA AND LATERAL (MT)Or dered By: Steel Buffer on 03-29-2009 CHEST, PA AND LATERAL (MT) See Note Normal [facility] Work Phone: Comment on above: Exam Number: [id number] CHEST, PA AND LATERAL PA and [...] CHEST, PA AND LATERAL (MT)Or dered By: Steel Buffer on 01-28-2009 CHEST, PA AND LATERAL (MT) See Note Normal [facility] Work Phone: Comment on above: Exam Number: [id number] CLINICAL:Fever, cough and shortness of breath [...] HILL M.D. INFLUENZA IMMUNOASSY DIRECT OPTICAL OBSERV ([id number])Ordered By: Emily Arteaga on 01-28-2009 FLUAV Ag IA Ql (Throat) Negative Normal C omprehensive Internal Medicine Work Phone: Influenza A, H1N1, RT PCROrd ered By: Steel Buffer on 01-28-2009 Influenza A, H1N1, RT PCR Negative Normal [facility] Work Phone: Comment on above: Clinical Information : SRC:NL PERFORMED BY: LUIS F [facility] [facility] [id number] Viral Culture,Rapid,Influenz aOrdered By: Steel Buffer on 01-28-2009 FLUV identified Org specific cx Nom (Unsp spec) Final report Normal [facility] Medicine Work Phone: Comment on above: Negative:No Influenz a A or B detected. PERFORMED BY: [facility] Zzqcmh2939 [facility] [id number] Rapid Flu (01917 x 2)Ordered By: Dee Sims on 05-11-2008 FLUAV Ag IA Ql (Throat) Negative Normal C omprehensive Internal Medicine Work Phone: C-REACTIVE PROTOrdered By: Maggi ramireztem Functional Director on 09-04-2006 CRP mass conc 7.69 mg/L [...] or = 500 mg/dL ROUTINE UAOrdered By: Steel Buffer on 09-04-2006 Clarity Nom (U) CLOUDY Normal [...] UILAT DIAG DIGITAL & C ADOrdered By: Steel Buffer on 07-26-2006 MAMM, UILAT DIAG DIGITAL & CAD See Note Normal [facility] Work Phone: Comment on above: Exam Number: [id number] MAMMOGRAM, LEFT UNILATERAL DIAGNOSTIC DIGITAL AND [...] mammograms werealso examined with computer-aided detection software ([employer] Reported By: KASIE MARCH M.D. MAMM, BILAT SCRN DIGITAL & C ADOrdered By: Steel Buffer on 07-17-2006 MAMM, BILAT SCRN DIGITAL & CAD See Note Normal [facility] Work Phone: Comment on above: Exam Number: [id number] MAMMOGRAM, BILATERAL SCREENING DIGITAL & CAD [...] mammograms werealso examined with computer-aided detection software ([employer], [employer] Reported By: KASIE MARCH M.D. Vital Signs Date Time Vital Sign Value Performing Clinician Facility 12-21-2024 09:43-0400 Body temperature 98.01 [degF] Treatment Wstr Work Phone: [facility] 12-21-2024 09:43-0400 Diastolic blood pressure 90 mm[Hg] Treatment Wstr Work Phone: [facility] 12-21-2024 09:43-0400 Heart rate 96 /min Treatment Wstr Work Phone: [facility] 12-21-2024 09:43-0400 Respiratory rate 16 /min Treatment Wstr Work Phone: [facility] 12-21-2024 09:43-0400 SaO2% (BldA) [Mass fraction] 99 % Treatment Wstr Work Phone: [facility] 12-21-2024 09:43-0400 Systolic blood pressure 130 mm[Hg] Treatment Wstr Work Phone: [facility] 12-18-2024 15:02-0400 Body temperature 99.1 [degF] Treatment Wstr Work Phone: [facility] 12-18-2024 15:02-0400 Diastolic blood pressure 85 mm[Hg] Treatment Wstr Work Phone: [facility] 12-18-2024 15:02-0400 Heart rate 95 /min Treatment Wstr Work Phone: [facility] 12-18-2024 15:02-0400 SaO2% (BldA) [Mass fraction] 100 % Treatment Wstr Work Phone: [facility] 12-18-2024 15:02-0400 Systolic blood pressure 137 mm[Hg] Treatment Wstr Work Phone: [facility] 12-18-2024 09:57-0400 Body height 167.6 cm David Armstrong MD Work Phone: [facility] 12-18-2024 09:57-0400 Body mass index (BMI) [Ratio] 28.54 kg/m2 David Armstrong MD Work Phone: [facility] 12-18-2024 09:57-0400 Body weight 80.2 kg David Armstrong MD Work Phone: [facility] 12-18-2024 09:57-0400 Diastolic blood pressure 86 mm[Hg] David Armstrong MD Work Phone: [facility] 12-18-2024 09:57-0400 Heart rate 91 /min David Armstrong MD Work Phone: [facility] 12-18-2024 09:57-0400 SaO2% (BldA) [Mass fraction] 100 % David Armstrong MD Work Phone: [facility] 12-18-2024 09:57-0400 Systolic blood pressure 132 mm[Hg] David Armstrong MD Work Phone: [facility] 12-17-2024 10:07-0400 Body temperature 97 [degF] Micki Marcelino MD Work Phone: [facility] 12-17-2024 10:07-0400 Diastolic blood pressure 103 mm[Hg] Micki Marcelino MD Work Phone: [facility] 12-17-2024 10:07-0400 Heart rate 93 /min Micki Marcelino MD Work Phone: [facility] 12-17-2024 10:07-0400 SaO2% (BldA) [Mass fraction] 98 % Micki Marcelino MD Work Phone: [facility] 12-17-2024 10:07-0400 Systolic blood pressure 165 mm[Hg] Micki Marcelino MD Work Phone: [facility] 12-16-2024 16:29-0400 Body height 167.6 cm Garth Reza MD Work Phone: [facility] 12-16-2024 16:29-0400 Body mass index (BMI) [Ratio] 27.92 kg/m2 Garth Reza MD Work Phone: [facility] 12-16-2024 16:29-0400 Body weight 78.47 kg Garth Reza MD Work Phone: [facility] 12-15-2024 11:35-0400 Body mass index (BMI) [Ratio] 28.47 kg/m2 Cathy Burr 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.FORM BLOCK MAKER Work Phone: [facility] 12-15-2024 11:35-0400 Body weight 80 kg Cathy Burr 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.FORM BLOCK MAKER Work Phone: [facility] 12-15-2024 11:35-0400 Diastolic blood pressure 98 mm[Hg] Cathy Burr 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.FORM BLOCK MAKER Work Phone: [facility] 12-15-2024 11:35-0400 Heart rate 98 /min Cathy Burr 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.FORM BLOCK MAKER Work Phone: [facility] 12-15-2024 11:35-0400 Respiratory rate 16 /min Treatment Wstr Work Phone: [facility] 12-15-2024 11:35-0400 SaO2% (BldA) [Mass fraction] 100 % Cathy Burr 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.FORM BLOCK MAKER Work Phone: [facility] 12-15-2024 11:35-0400 Systolic blood pressure 144 mm[Hg] Treatment Wstr Work Phone: [facility] 12-15-2024 10:00-0400 Body temperature 98.29 [degF] Treatment Wstr Work Phone: [facility] 12-15-2024 10:00-0400 Diastolic blood pressure 96 mm[Hg] Treatment Wstr Work Phone: [facility] 12-15-2024 10:00-0400 Heart rate 99 /min Treatment Wstr Work Phone: [facility] 12-15-2024 10:00-0400 SaO2% (BldA) [Mass fraction] 99 % Treatment Wstr Work Phone: [facility] 12-11-2024 08:33-0400 Body temperature 98.4 [degF] Treatment Wstr Work Phone: [facility] 12-11-2024 08:33-0400 Diastolic blood pressure 83 mm[Hg] Treatment Wstr Work Phone: [facility] 12-11-2024 08:33-0400 Heart rate 90 /min Treatment Wstr Work Phone: [facility] [facility] 12-11-2024 08:33-0400 SaO2% (BldA) [Mass fraction] 98 % Treatment Wstr Work Phone: [facility] 12-11-2024 08:33-0400 Systolic blood pressure 141 mm[Hg] Treatment Wstr Work Phone: [facility] 11-20-2024 10:55-0400 Body height 167.6 cm Luis Alberto Raman 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.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 Work Phone: [facility] 11-20-2024 10:55-0400 Body mass index (BMI) [Ratio] 28.86 kg/m2 Luis Alberto Raman 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.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 Work Phone: [facility] 11-20-2024 10:55-0400 Body temperature 97.59 [degF] Luis Alberto Raman 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.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 Work Phone: [facility] 11-20-2024 10:55-0400 Body weight 81.1 kg Luis Alberto Raman 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.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 Work Phone: [facility] 11-20-2024 10:55-0400 Diastolic blood pressure 74 mm[Hg] Luis Alberto Raman 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.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 Work Phone: [facility] 11-20-2024 10:55-0400 Heart rate 86 /min Luis Alberto Raman 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.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 Work Phone: [facility] 11-20-2024 10:55-0400 Respiratory rate 14 /min Luis Alberto Raman 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.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 Work Phone: [facility] 11-20-2024 10:55-0400 SaO2% (BldA) [Mass fraction] 100 % Luis Alberto Raman 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.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 Work Phone: [facility] 11-20-2024 10:55-0400 Systolic blood pressure 138 mm[Hg] Luis Alberto Raman 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.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 Work Phone: [facility] 11-18-2024 11:01-0400 Body height 167.[address] Jacinta Rivas MD Work Phone: 7(746)042-244405 [place] [address] 11-18-2024 11:01-0400 Body weight 82.[address] Jacinta Rivas MD Work Phone: 9(982)969-200305 [place] [address] 11-18-2024 10:25-0400 Heart rate 85 /min Dr. Jacinta Rivas MD Work Phone: 2(208)291-427305 [place] [address] 11-18-2024 08:00-0400 Body temperature 99 [degF] Dr. Jacinta Rivas MD Work Phone: 6(023)950-265005 [place] [address] 11-18-2024 08:00-0400 Diastolic blood pressure 75 mm[Hg] Dr. Jacinta Rivas MD Work Phone: 1(342)128-570205 [place] [address] 11-18-2024 08:00-0400 Inhaled oxygen flow rate 2 L/min Dr. Jacinta Rivas MD Work Phone: 1(752)003-804605 [place] [address] 11-18-2024 08:00-0400 Respiratory rate 18 /min Dr. Jacinta Rivas MD Work Phone: 6(998)310-432305 [place] [address] 11-18-2024 08:00-0400 SaO2% (BldA) [Mass fraction] 98 % Dr. Jacinta Rivas MD Work Phone: 8(342)221-489605 [place] [address] 11-18-2024 08:00-0400 Systolic blood pressure 123 mm[Hg] Dr. Jacinta Rivas MD Work Phone: 0(494)907-861805 [place] [address] 11-18-2024 06:00-0400 Body mass index (BMI) [Ratio] 29 kg/m2 Dr. Jacinta Rivas MD Work Phone: 5(103)560-767105 [place] [address] 11-15-2024 23:00-0400 Diastolic blood pressure 65 mm[Hg] Dr. Jacinta Rivas MD Work Phone: 9(000)587-361905 [place] [address] 11-15-2024 23:00-0400 Heart rate 101 /min Dr. Jacinta Rivas MD Work Phone: 7(719)654-958405 [place] [address] 11-15-2024 23:00-0400 Respiratory rate 18 /min Dr. Jacinta Rivas MD Work Phone: 6(878)108-032219 [place] [address] 11-15-2024 23:00-0400 SaO2% (BldA) [Mass fraction] 97 % Dr. Jacinta Rivas MD Work Phone: 6(908)765-747405 [place] [address] 11-15-2024 23:00-0400 Systolic blood pressure 110 mm[Hg] Dr. Jacinta Rivas MD Work Phone: 0(419)390-295405 [place] [address] 11-15-2024 22:19-0400 Body temperature 101.3 [degF] Dr. Jacinta Rivas MD Work Phone: 2(376)022-085905 [place] [address] 11-15-2024 17:38-0400 Body height 167.[address] Jacinta Rivas MD Work Phone: 3(594)116-469605 [place] [address] 11-15-2024 17:38-0400 Body mass index (BMI) [Ratio] 28.2 kg/m2 Dr. Jacinta Rivas MD Work Phone: 6(745)807-159205 [place] [address] 11-15-2024 17:38-0400 Body weight 79.[address] Jacinta Rivas MD Work Phone: 9(379)261-855005 [place] [address] 11-09-2024 08:00-0400 Body temperature 97.5 [degF] Treatment Wstr Work Phone: [facility] 11-09-2024 08:00-0400 Diastolic blood pressure 89 mm[Hg] Treatment Wstr Work Phone: [facility] 11-09-2024 08:00-0400 Heart rate 92 /min Treatment Wstr Work Phone: [facility] 11-09-2024 08:00-0400 SaO2% (BldA) [Mass fraction] 99 % Treatment Wstr Work Phone: [facility] 11-09-2024 08:00-0400 Systolic blood pressure 138 mm[Hg] Treatment Wstr Work Phone: [facility] 11-02-2024 11:11-0400 Body height 167.[address] Jacinta Rivas MD Work Phone: [facility] 11-02-2024 11:11-0400 Body mass index (BMI) [Ratio] 29 kg/m2 Dr. Jacinta Rivas MD Work Phone: 2(813)596-812719 [place] [address] 11-02-2024 11:11-0400 Body weight 81.[address] Jacinta Rivas MD Work Phone: 1(103)696-611319 [place] [address] 11-02-2024 11:11-0400 Diastolic blood pressure 78 mm[Hg] Dr. Jacinta Rivas MD Work Phone: 6(470)314-441605 [place] [address] 11-02-2024 11:11-0400 Heart rate 82 /min Dr. Jacinta Rivas MD Work Phone: 5(581)721-519905 [place] [address] 11-02-2024 11:11-0400 Respiratory rate 18 /min Dr. Jacinta Rivas MD Work Phone: 0(199)263-036705 [place] [address] 11-02-2024 11:11-0400 SaO2% (BldA) [Mass fraction] 98 % Dr. Jacinta Rivas MD Work Phone: 3(351)545-183819 [place] [address] 11-02-2024 11:11-0400 Systolic blood pressure 115 mm[Hg] Dr. Jacinta Rivas MD Work Phone: 5(510)572-745319 [place] [address] 10-30-2024 09:19-0400 Body mass index (BMI) [Ratio] 29.58 kg/m2 Serena Carrasco DO Work Phone: [facility] 10-30-2024 09:19-0400 Body temperature 98.29 [degF] Serena Carrasco DO Work Phone: [facility] 10-30-2024 09:19-0400 Body weight 81.87 kg Serena Carrasco DO Work Phone: [facility] 10-30-2024 09:19-0400 Diastolic blood pressure 78 mm[Hg] Serena Carrasco DO Work Phone: [facility] 10-30-2024 09:19-0400 Heart rate 91 /min Serena Carrasco DO Work Phone: [facility] 10-30-2024 09:19-0400 SaO2% (BldA) [Mass fraction] 100 % Serena Carrasco DO Work Phone: [facility] 10-30-2024 09:19-0400 Systolic blood pressure 124 mm[Hg] Serena Carrasco DO Work Phone: [facility] 10-26-2024 14:28-0400 Body mass index (BMI) [Ratio] 29.66 kg/m2 Lisbet Rona 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.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 Work Phone: [facility] 10-26-2024 14:28-0400 Body weight 82.1 kg Lisbet Rona 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.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 Work Phone: [facility] 10-26-2024 14:28-0400 Diastolic blood pressure 78 mm[Hg] Lisbet Rona 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.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 Work Phone: [facility] 10-26-2024 14:28-0400 Heart rate 85 /min Lisbet Rona 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.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 Work Phone: [facility] 10-26-2024 14:28-0400 SaO2% (BldA) [Mass fraction] 97 % Lisbet Rona 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.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 Work Phone: [facility] 10-26-2024 14:28-0400 Systolic blood pressure 122 mm[Hg] Lisbet Rona 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.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 Work Phone: [facility] 10-15-2024 13:36-0400 Body temperature 98.91 [degF] Mino Beard 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.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 Work Phone: [facility] 10-15-2024 13:36-0400 Diastolic blood pressure 77 mm[Hg] Mino Beard 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.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 Work Phone: [facility] 10-15-2024 13:36-0400 Heart rate 85 /min Mino Beard 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.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 Work Phone: [facility] 10-15-2024 13:36-0400 SaO2% (BldA) [Mass fraction] 99 % Mino Beard 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.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 Work Phone: [facility] 10-15-2024 13:36-0400 Systolic blood pressure 122 mm[Hg] Mino Beard 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.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 Work Phone: [facility] 10-14-2024 11:44-0400 Body height 166.4 cm Daisy Cioce 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.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 Work Phone: [facility] 10-14-2024 11:44-0400 Body mass index (BMI) [Ratio] 29.6 kg/m2 Daisy Cioce 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.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 Work Phone: [facility] 10-14-2024 11:44-0400 Body weight 81.92 kg Daisy Cioce 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.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 Work Phone: [facility] 10-14-2024 11:44-0400 Diastolic blood pressure 64 mm[Hg] Daisy Cioce 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.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 Work Phone: [facility] 10-14-2024 11:44-0400 Heart rate 84 /min Daisy Cioce 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.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 Work Phone: [facility] 10-14-2024 11:44-0400 Respiratory rate 17 /min Daisy Cioce 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.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 Work Phone: [facility] 10-14-2024 11:44-0400 SaO2% (BldA) [Mass fraction] 96 % Daisy Cioce 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.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 Work Phone: [facility] 10-14-2024 11:44-0400 Systolic blood pressure 110 mm[Hg] Daisy Cioce 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.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 Work Phone: [facility] 10-13-2024 14:59-0400 Body mass index (BMI) [Ratio] 29.34 kg/m2 Lisbet Rona 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.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 Work Phone: [facility] 10-13-2024 14:59-0400 Body weight 81.2 kg Lisbet Rona 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.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 Work Phone: [facility] 10-13-2024 14:59-0400 Diastolic blood pressure 82 mm[Hg] Lisbet Rona 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.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 Work Phone: [facility] 10-13-2024 14:59-0400 Heart rate 64 /min Lisbet Petersr 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.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 Work Phone: [facility] 10-13-2024 14:59-0400 Systolic blood pressure 146 mm[Hg] Lisbet Rona 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.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 Work Phone: [facility] 09-22-2024 14:29-0400 Body mass index (BMI) [Ratio] 28.51 kg/m2 Nel Day 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.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 Work Phone: [facility] 09-22-2024 14:29-0400 Body weight 78.93 kg Nel Day 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.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 Work Phone: [facility] 09-22-2024 14:29-0400 Diastolic blood pressure 70 mm[Hg] Nel Day 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.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 Work Phone: [facility] 09-22-2024 14:29-0400 Heart rate 88 /min Nel Day 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.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 Work Phone: [facility] 09-22-2024 14:29-0400 Respiratory rate 14 /min Nel Day 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.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 Work Phone: [facility] 09-22-2024 14:29-0400 SaO2% (BldA) [Mass fraction] 99 % Nel Day 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.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 Work Phone: [facility] 09-22-2024 14:29-0400 Systolic blood pressure 116 mm[Hg] Nel Day 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.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 Work Phone: [facility] 09-07-2024 14:18-0400 Body mass index (BMI) [Ratio] 28.54 kg/m2 Cathy Burr 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.FORM BLOCK MAKER Work Phone: [facility] 09-07-2024 14:18-0400 Body weight 79 kg Cathy Burr 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.FORM BLOCK MAKER Work Phone: [facility] 09-07-2024 14:18-0400 Diastolic blood pressure 75 mm[Hg] Cathy Burr 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.FORM BLOCK MAKER Work Phone: [facility] 09-07-2024 14:18-0400 Heart rate 105 /min Cathy Burr 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.FORM BLOCK MAKER Work Phone: [facility] 09-07-2024 14:18-0400 Respiratory rate 16 /min Cathy Burr 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.FORM BLOCK MAKER Work Phone: [facility] 09-07-2024 14:18-0400 Systolic blood pressure 114 mm[Hg] Cathy Burr 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.FORM BLOCK MAKER Work Phone: [facility] 09-03-2024 13:12-0400 Body temperature 98.01 [degF] Micki Marcelino MD Work Phone: [facility] 09-03-2024 13:12-0400 Diastolic blood pressure 81 mm[Hg] Micki Marcelino MD Work Phone: [facility] 09-03-2024 13:12-0400 Heart rate 87 /min Micki Marcelino MD Work Phone: [facility] 09-03-2024 13:12-0400 Respiratory rate 15 /min Micki Marcelino MD Work Phone: [facility] 09-03-2024 13:12-0400 SaO2% (BldA) [Mass fraction] 99 % Micki Marcelino MD Work Phone: [facility] 09-03-2024 13:12-0400 Systolic blood pressure 135 mm[Hg] Micki Marcelino MD Work Phone: [facility] 07-15-2024 13:02-0400 Body temperature 97 [degF] Micki Butler APRN.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 Work Phone: [facility] 07-09-2024 09:31-0400 Body mass index (BMI) [Ratio] 27.37 kg/m2 Serena Carrasco DO Work Phone: [facility] 07-09-2024 09:31-0400 Body temperature 97.2 [degF] Serena Masci DO Work Phone: [facility] 07-09-2024 09:31-0400 Body weight 75.75 kg Serena Masci DO Work Phone: [facility] 07-09-2024 09:31-0400 Diastolic blood pressure 86 mm[Hg] Serena Masci DO Work Phone: [facility] 07-09-2024 09:31-0400 Heart rate 75 /min Serena Masci DO Work Phone: [facility] 07-09-2024 09:31-0400 Respiratory rate 12 /min Serena Masci DO Work Phone: [facility] 07-09-2024 09:31-0400 SaO2% (BldA) [Mass fraction] 99 % Serena Masci DO Work Phone: [facility] 07-09-2024 09:31-0400 Systolic blood pressure 121 mm[Hg] Serena Masci DO Work Phone: [facility] 06-25-2024 13:06-0400 Body height 166.4 cm Micki Marcelino MD Work Phone: [facility] 06-25-2024 13:06-0400 Body mass index (BMI) [Ratio] 28.84 kg/m2 Micki Marcelino MD Work Phone: [facility] 06-25-2024 13:06-0400 Body temperature 96.91 [degF] Micki Marcelino MD Work Phone: [facility] 06-25-2024 13:06-0400 Body weight 79.83 kg Micki Marcelino MD Work Phone: [facility] 06-25-2024 13:06-0400 Diastolic blood pressure 87 mm[Hg] Micki Marcelino MD Work Phone: [facility] 06-25-2024 13:06-0400 Heart rate 70 /min Micki Marcelino MD Work Phone: [facility] 06-25-2024 13:06-0400 Systolic blood pressure 153 mm[Hg] Micki Marcelino MD Work Phone: [facility] 06-05-2024 08:42-0500 Diastolic blood pressure 103 mm[Hg] Cathy Burr 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.FORM BLOCK MAKER Work Phone: [facility] Comment on above: bp average 06-05-2024 08:42-0500 Heart rate 93 /min Cathy Burr 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.FORM BLOCK MAKER Work Phone: [facility] 06-05-2024 08:42-0500 Systolic blood pressure 162 mm[Hg] Cathy Burr 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.FORM BLOCK MAKER Work Phone: [facility] Comment on above: bp average 06-05-2024 08:36-0500 Body mass index (BMI) [Ratio] 28.9 kg/m2 Cathy Burr 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.FORM BLOCK MAKER Work Phone: [facility] 06-05-2024 08:36-0500 Body weight 80 kg Cathy Burr 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.FORM BLOCK MAKER Work Phone: [facility] 06-05-2024 08:36-0500 Respiratory rate 16 /min Cathy Burr 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.FORM BLOCK MAKER Work Phone: [facility] 06-04-2024 11:04-0500 Diastolic blood pressure 117 mm[Hg] Mino Beard 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.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 Work Phone: [facility] 06-04-2024 11:04-0500 Heart rate 96 /min Mino Beard 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.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 Work Phone: [facility] 06-04-2024 11:04-0500 Systolic blood pressure 176 mm[Hg] Mino Beard 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.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 Work Phone: [facility] 05-26-2024 10:02-0500 Diastolic blood pressure 96 mm[Hg] Cathy Burr 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.FORM BLOCK MAKER Work Phone: [facility] Comment on above: bp average 05-26-2024 10:02-0500 Heart rate 95 /min Cathy Burr 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.FORM BLOCK MAKER Work Phone: [facility] 05-26-2024 10:02-0500 SaO2% (BldA) [Mass fraction] 98 % Cathy Burr 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.FORM BLOCK MAKER Work Phone: [facility] 05-26-2024 10:02-0500 Systolic blood pressure 155 mm[Hg] Cathy Burr 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.FORM BLOCK MAKER Work Phone: [facility] Comment on above: bp average 05-26-2024 09:54-0500 Body mass index (BMI) [Ratio] 28.9 kg/m2 Cathy Burr 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.FORM BLOCK MAKER Work Phone: [facility] 05-26-2024 09:54-0500 Body weight 80 kg Cathy Burr 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.FORM BLOCK MAKER Work Phone: [facility] 05-26-2024 09:54-0500 Respiratory rate 16 /min Cathy Burr 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.FORM BLOCK MAKER Work Phone: [facility] 05-18-2024 14:45-0500 Body temperature 97.3 [degF] Micki Marcelino MD Work Phone: [facility] 05-18-2024 14:45-0500 Diastolic blood pressure 68 mm[Hg] Micki Marcelino MD Work Phone: [facility] 05-18-2024 14:45-0500 Heart rate 80 /min Micki Marcelino MD Work Phone: [facility] 05-18-2024 14:45-0500 Respiratory rate 18 /min Micki Marcelino MD Work Phone: [facility] 05-18-2024 14:45-0500 SaO2% (BldA) [Mass fraction] 97 % Micki Marcelino MD Work Phone: [facility] 05-18-2024 14:45-0500 Systolic blood pressure 122 mm[Hg] Micki Marcelino MD Work Phone: [facility] 05-18-2024 10:26-0500 Body mass index (BMI) [Ratio] 28.72 kg/m2 Micki Marcelino MD Work Phone: [facility] 05-18-2024 10:26-0500 Body weight 79.5 kg Micki Marcelino MD Work Phone: [facility] 05-12-2024 09:41-0500 Body mass index (BMI) [Ratio] 27.82 kg/m2 Cathy Burr 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.FORM BLOCK MAKER Work Phone: [facility] 05-12-2024 09:41-0500 Body weight 77 kg Cathy Burr 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.FORM BLOCK MAKER Work Phone: [facility] 05-12-2024 09:41-0500 Diastolic blood pressure 92 mm[Hg] Cathy Burr 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.FORM BLOCK MAKER Work Phone: [facility] 05-12-2024 09:41-0500 Heart rate 92 /min Cathy Burr 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.FORM BLOCK MAKER Work Phone: [facility] 05-12-2024 09:41-0500 Respiratory rate 16 /min Cathy Burr 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.FORM BLOCK MAKER Work Phone: [facility] 05-12-2024 09:41-0500 Systolic blood pressure 142 mm[Hg] Cathy Burr 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.FORM BLOCK MAKER Work Phone: [facility] 05-07-2024 07:46-0500 Diastolic blood pressure 86 mm[Hg] Cathy Burr 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.FORM BLOCK MAKER Work Phone: [facility] 05-07-2024 07:46-0500 Systolic blood pressure 136 mm[Hg] Cathy Burr 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.FORM BLOCK MAKER Work Phone: [facility] 05-07-2024 07:44-0500 Body mass index (BMI) [Ratio] 27.46 kg/m2 Cathy Burr 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.FORM BLOCK MAKER Work Phone: [facility] 05-07-2024 07:44-0500 Body weight 76 kg Cathy Burr 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.FORM BLOCK MAKER Work Phone: [facility] 05-07-2024 07:44-0500 Heart rate 92 /min Cathy Burr 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.FORM BLOCK MAKER Work Phone: [facility] 05-07-2024 07:44-0500 Respiratory rate 16 /min Cathy Burr 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.FORM BLOCK MAKER Work Phone: [facility] 05-04-2024 11:10-0500 Body height 166.4 cm [facility] Comment on above: patient reported 05-04-2024 11:10-0500 Body mass index (BMI) [Ratio] 27.04 kg/m2 [facility] 05-04-2024 11:10-0500 Body weight 74.84 kg [facility] Comment on above: patient reported 05-04-2024 11:10-0500 Heart rate 82 /min [facility] Comment on above: [employer] 04-28-2024 14:56-0500 Body mass index (BMI) [Ratio] 28.05 kg/m2 Carla Forbes 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.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 Work Phone: [facility] 04-28-2024 14:56-0500 Body temperature 99.19 [degF] Carla Forbes 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.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 Work Phone: [facility] 04-28-2024 14:56-0500 Body weight 77.3 kg Carla Forbes 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.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 Work Phone: [facility] 04-28-2024 14:56-0500 Diastolic blood pressure 80 mm[Hg] Carla Forbes 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.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 Work Phone: [facility] 04-28-2024 14:56-0500 Heart rate 96 /min Carla Forbes 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.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 Work Phone: [facility] 04-28-2024 14:56-0500 Respiratory rate 16 /min Carla Forbes 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.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 Work Phone: [facility] 04-28-2024 14:56-0500 SaO2% (BldA) [Mass fraction] 96 % Carla Forbes 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.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 Work Phone: [facility] 04-28-2024 14:56-0500 Systolic blood pressure 126 mm[Hg] Carla Dagmar 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.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 Work Phone: [facility] 04-15-2024 12:10-0500 Body mass index (BMI) [Ratio] 27.33 kg/m2 Daisy Cioce 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.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 Work Phone: [facility] 04-15-2024 12:10-0500 Body temperature 97.81 [degF] Daisy Cioce 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.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 Work Phone: [facility] 04-15-2024 12:10-0500 Body weight 75.3 kg Daisy Cioce 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.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 Work Phone: [facility] 04-15-2024 12:10-0500 Diastolic blood pressure 92 mm[Hg] Daisy Cioce 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.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 Work Phone: [facility] 04-15-2024 12:10-0500 Heart rate 98 /min Daisy Cioce 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.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 Work Phone: [facility] 04-15-2024 12:10-0500 SaO2% (BldA) [Mass fraction] 98 % Daisy Cioce 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.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 Work Phone: [facility] 04-15-2024 12:10-0500 Systolic blood pressure 146 mm[Hg] Daisy Cioce 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.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 Work Phone: [facility] 04-13-2024 15:01-0500 Body temperature 97.3 [degF] Treatment Wstr Work Phone: [facility] 04-13-2024 15:01-0500 Diastolic blood pressure 92 mm[Hg] Treatment Wstr Work Phone: [facility] 04-13-2024 15:01-0500 Heart rate 98 /min Treatment Wstr Work Phone: [facility] 04-13-2024 15:01-0500 Respiratory rate 18 /min Treatment Wstr Work Phone: [facility] 04-13-2024 15:01-0500 SaO2% (BldA) [Mass fraction] 99 % Treatment Wstr Work Phone: [facility] 04-13-2024 15:01-0500 Systolic blood pressure 142 mm[Hg] Treatment Wstr Work Phone: [facility] 04-10-2024 08:59-0500 Body mass index (BMI) [Ratio] 28.15 kg/m2 Serena Edsoni DO Work Phone: [facility] 04-10-2024 08:59-0500 Body temperature 98.49 [degF] Serena Masci DO Work Phone: [facility] 04-10-2024 08:59-0500 Body weight 77.56 kg Serena Masci DO Work Phone: [facility] 04-10-2024 08:59-0500 Diastolic blood pressure 90 mm[Hg] Serena Masci DO Work Phone: [facility] 04-10-2024 08:59-0500 Heart rate 100 /min Serena Masci DO Work Phone: [facility] 04-10-2024 08:59-0500 SaO2% (BldA) [Mass fraction] 96 % Serena Masci DO Work Phone: [facility] 04-10-2024 08:59-0500 Systolic blood pressure 134 mm[Hg] Serena Edsoni DO Work Phone: [facility] 03-18-2024 14:22-0500 Diastolic blood pressure 88 mm[Hg] Jacinta Rivas MD Work Phone: [facility] 03-18-2024 14:22-0500 Systolic blood pressure 138 mm[Hg] Jacinta Rivas MD Work Phone: [facility] 03-18-2024 13:20-0500 Body height 166 cm Jacinta Rivas MD Work Phone: [facility] 03-18-2024 13:20-0500 Body mass index (BMI) [Ratio] 27.51 kg/m2 Jacinta Rivas MD Work Phone: [facility] 03-18-2024 13:20-0500 Body temperature 98.01 [degF] Jacinta Rivas MD Work Phone: [facility] 03-18-2024 13:20-0500 Body weight 75.8 kg Jacinta Rivas MD Work Phone: [facility] 03-18-2024 13:20-0500 Heart rate 82 /min Jacinta Rivas MD Work Phone: [facility] 03-18-2024 13:20-0500 Respiratory rate 16 /min Jacinta Rivas MD Work Phone: [facility] 03-18-2024 13:20-0500 SaO2% (BldA) [Mass fraction] 98 % Jacinta Rivas MD Work Phone: [facility] 02-05-2024 14:02-0400 Body height 164.5 cm Daisy Cioce 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.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 Work Phone: [facility] 02-05-2024 14:02-0400 Body mass index (BMI) [Ratio] 27.9 kg/m2 Daisy Cioce 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.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 Work Phone: [facility] 02-05-2024 14:02-0400 Body temperature 97.81 [degF] Daisy Cioce 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.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 Work Phone: [facility] 02-05-2024 14:02-0400 Body weight 75.48 kg Daisy Cioce 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.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 Work Phone: [facility] 02-05-2024 14:02-0400 Heart rate 81 /min Daisy Cioce 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.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 Work Phone: [facility] 02-05-2024 14:02-0400 SaO2% (BldA) [Mass fraction] 97 % Daisy Cioce 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.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 Work Phone: [facility] 01-06-2024 10:08-0400 Body mass index (BMI) [Ratio] 27.42 kg/m2 Serena Masci DO Work Phone: [facility] 01-06-2024 10:08-0400 Body temperature 98.49 [degF] Serena Masci DO Work Phone: [facility] 01-06-2024 10:08-0400 Body weight 74.16 kg Serena Masci DO Work Phone: [facility] 01-06-2024 10:08-0400 Diastolic blood pressure 96 mm[Hg] Serena Masci DO Work Phone: [facility] 01-06-2024 10:08-0400 Heart rate 92 /min Serena Masci DO Work Phone: [facility] 01-06-2024 10:08-0400 SaO2% (BldA) [Mass fraction] 97 % Serena Masci DO Work Phone: [facility] 01-06-2024 10:08-0400 Systolic blood pressure 168 mm[Hg] Serena Masci DO Work Phone: [facility] 11-11-2023 08:54-0400 Body mass index (BMI) [Ratio] 27.42 kg/m2 Serena Masci DO Work Phone: [facility] 11-11-2023 08:54-0400 Body temperature 98.4 [degF] Serena Masci DO Work Phone: [facility] 11-11-2023 08:54-0400 Body weight 74.16 kg Serena Masci DO Work Phone: [facility] 11-11-2023 08:54-0400 Diastolic blood pressure 77 mm[Hg] Serena Masci DO Work Phone: [facility] 11-11-2023 08:54-0400 Heart rate 92 /min Serena Masci DO Work Phone: [facility] 11-11-2023 08:54-0400 SaO2% (BldA) [Mass fraction] 99 % Serena Masci DO Work Phone: [facility] 11-11-2023 08:54-0400 Systolic blood pressure 118 mm[Hg] Serena Carrasco DO Work Phone: [facility] 10-23-2023 13:10-0400 Body mass index (BMI) [Ratio] 27.69 kg/m2 Lisbet Rona 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.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 Work Phone: [facility] 10-23-2023 13:10-0400 Body temperature 100.4 [degF] Lisbet Rona 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.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 Work Phone: [facility] 10-23-2023 13:10-0400 Body weight 74.89 kg Lisbet Rona 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.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 Work Phone: [facility] 10-23-2023 13:10-0400 Diastolic blood pressure 62 mm[Hg] Lisbet Rona 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.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 Work Phone: [facility] 10-23-2023 13:10-0400 Heart rate 120 /min Lisbet Rona 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.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 Work Phone: [facility] 10-23-2023 13:10-0400 Respiratory rate 16 /min Lisbet Rona 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.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 Work Phone: [facility] 10-23-2023 13:10-0400 SaO2% (BldA) [Mass fraction] 97 % Lisbet Rona 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.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 Work Phone: [facility] 10-23-2023 13:10-0400 Systolic blood pressure 98 mm[Hg] Lisbet Rona 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.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 Work Phone: [facility] 10-18-2023 17:28-0400 Body mass index (BMI) [Ratio] 28.1 kg/m2 Severino Moomaw 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.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 Work Phone: [facility] 10-18-2023 17:28-0400 Body temperature 98.29 [degF] Severino Moomaw 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.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 Work Phone: [facility] 10-18-2023 17:28-0400 Body weight 76 kg Severino Moomaw 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.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 Work Phone: [facility] 10-18-2023 17:28-0400 Diastolic blood pressure 82 mm[Hg] Severino Moomaw 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.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 Work Phone: [facility] 10-18-2023 17:28-0400 Heart rate 83 /min Severino Moomaw 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.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 Work Phone: [facility] 10-18-2023 17:28-0400 Respiratory rate 20 /min Severino Moomaw 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.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 Work Phone: [facility] 10-18-2023 17:28-0400 SaO2% (BldA) [Mass fraction] 99 % Severino Moomaw 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.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 Work Phone: [facility] 10-18-2023 17:28-0400 Systolic blood pressure 145 mm[Hg] Severino Moomaw 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.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 Work Phone: [facility] 08-05-2023 10:14-0400 Body mass index (BMI) [Ratio] 30.52 kg/m2 Serena Masci DO Work Phone: [facility] 08-05-2023 10:14-0400 Body temperature 98.6 [degF] Serena Masci DO Work Phone: [facility] 08-05-2023 10:14-0400 Body weight 82.56 kg Serena Masci DO Work Phone: [facility] 08-05-2023 10:14-0400 Diastolic blood pressure 78 mm[Hg] Serena Masci DO Work Phone: [facility] 08-05-2023 10:14-0400 Heart rate 87 /min Serean Masci DO Work Phone: [facility] 08-05-2023 10:14-0400 SaO2% (BldA) [Mass fraction] 99 % Serena Masci DO Work Phone: [facility] 08-05-2023 10:14-0400 Systolic blood pressure 149 mm[Hg] Serena Masci DO Work Phone: [facility] 07-16-2023 11:03-0400 Body mass index (BMI) [Ratio] 30.22 kg/m2 Jacinta Rivas MD Work Phone: [facility] 07-16-2023 11:03-0400 Body weight 81.74 kg Jacinta Rivas MD Work Phone: [facility] 07-16-2023 11:03-0400 Diastolic blood pressure 86 mm[Hg] Jacinta Rivas MD Work Phone: [facility] 07-16-2023 11:03-0400 Heart rate 90 /min Jacinta Rvias MD Work Phone: [facility] 07-16-2023 11:03-0400 SaO2% (BldA) [Mass fraction] 100 % Jacinta Rivas MD Work Phone: [facility] 07-16-2023 11:03-0400 Systolic blood pressure 122 mm[Hg] Jacinta Rivas MD Work Phone: [facility] 07-08-2023 20:35-0400 Body temperature 97.5 [degF] [facility] 07-08-2023 20:35-0400 Diastolic blood pressure 71 mm[Hg] [facility] 07-08-2023 20:35-0400 Heart rate 72 /min [facility] 07-08-2023 20:35-0400 Respiratory rate 15 /min [facility] 07-08-2023 20:35-0400 SaO2% (BldA) [Mass fraction] 97 % [facility] 07-08-2023 20:35-0400 Systolic blood pressure 132 mm[Hg] [facility] 07-08-2023 16:09-0400 Body height 167.64 cm [facility] 07-08-2023 16:09-0400 Body mass index (BMI) [Ratio] 29.9 kg/m2 [facility] 07-08-2023 16:09-0400 Body weight 84.36 kg [facility] 07-08-2023 15:00-0400 Body temperature 99.39 [degF] Carla Forbes APRN.CNP Work Phone: [facility] 07-08-2023 15:00-0400 Body weight 83.8 kg Carla Forbes 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.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 Work Phone: [facility] 07-08-2023 15:00-0400 Diastolic blood pressure 88 mm[Hg] Carla Forbes 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.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 Work Phone: [facility] 07-08-2023 15:00-0400 Heart rate 103 /min Carla Forbes 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.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 Work Phone: [facility] 07-08-2023 15:00-0400 Respiratory rate 19 /min Carla Forbes 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.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 Work Phone: [facility] 07-08-2023 15:00-0400 Systolic blood pressure 130 mm[Hg] Carla Forbes 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.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 Work Phone: [facility] 07-05-2023 09:04-0400 Body temperature 97.9 [degF] Michell David Work Phone: [facility] 07-05-2023 09:04-0400 Body weight 85.05 kg Michell David Work Phone: [facility] 07-05-2023 09:04-0400 Diastolic blood pressure 85 mm[Hg] Michell David Work Phone: [facility] 07-05-2023 09:04-0400 Heart rate 93 /min Michell David Work Phone: [facility] 07-05-2023 09:04-0400 SaO2% (BldA) [Mass fraction] 98 % Michell David Work Phone: [facility] 07-05-2023 09:04-0400 Systolic blood pressure 131 mm[Hg] Michell David Work Phone: [facility] 03-05-2023 09:15-0500 Body temperature 98.1 [degF] Injection Wstr Work Phone: [facility] 11-28-2023 09:15-0500 Body weight 85.73 kg Injection Wstr Work Phone: [facility] 03-05-2023 09:15-0500 Diastolic blood pressure 78 mm[Hg] Injection Wstr Work Phone: [facility] 03-05-2023 09:15-0500 Heart rate 89 /min Injection Wstr Work Phone: [facility] 03-05-2023 09:15-0500 Systolic blood pressure 120 mm[Hg] Injection Wstr Work Phone: [facility] 12-26-2022 14:30-0400 Body temperature 97.81 [degF] Treatment Wstr Work Phone: [facility] 12-26-2022 14:30-0400 Diastolic blood pressure 81 mm[Hg] Treatment Wstr Work Phone: [facility] 12-26-2022 14:30-0400 Heart rate 81 /min Treatment Wstr Work Phone: [facility] 12-26-2022 14:30-0400 Systolic blood pressure 119 mm[Hg] Treatment Wstr Work Phone: [facility] 12-17-2022 15:18-0400 Body temperature 97.59 [degF] Serena Masci DO Work Phone: [facility] 12-17-2022 15:18-0400 Body weight 86.41 kg Serena Masci DO Work Phone: [facility] 12-17-2022 15:18-0400 Diastolic blood pressure 67 mm[Hg] Serena Masci DO Work Phone: [facility] 12-17-2022 15:18-0400 Heart rate 73 /min Serena Masci DO Work Phone: [facility] 12-17-2022 15:18-0400 SaO2% (BldA) [Mass fraction] 98 % Serena Masci DO Work Phone: [facility] 12-17-2022 15:18-0400 Systolic blood pressure 110 mm[Hg] Serena Masci DO Work Phone: [facility] 12-13-2022 09:29-0400 Body temperature 98.49 [degF] Injection Wstr Work Phone: [facility] 12-13-2022 09:29-0400 Body weight 85.28 kg Injection Wstr Work Phone: [facility] 12-13-2022 09:29-0400 Diastolic blood pressure 62 mm[Hg] Injection Wstr Work Phone: [facility] 12-13-2022 09:29-0400 Heart rate 57 /min Injection Wstr Work Phone: [facility] 12-13-2022 09:29-0400 Systolic blood pressure 103 mm[Hg] Injection Wstr Work Phone: [facility] 11-15-2022 09:24-0400 Body temperature 97 [degF] Injection Wstr Work Phone: [facility] 11-15-2022 09:24-0400 Body weight 86.64 kg Injection Wstr Work Phone: [facility] 11-15-2022 09:24-0400 Diastolic blood pressure 83 mm[Hg] Injection Wstr Work Phone: [facility] 11-15-2022 09:24-0400 Heart rate 82 /min Injection Wstr Work Phone: [facility] 11-15-2022 09:24-0400 Systolic blood pressure 119 mm[Hg] Injection Wstr Work Phone: [facility] 11-07-2022 10:08-0400 Body temperature 97.2 [degF] Treatment Wstr Work Phone: [facility] 11-07-2022 10:08-0400 Diastolic blood pressure 83 mm[Hg] Treatment Wstr Work Phone: [facility] 11-07-2022 10:08-0400 Heart rate 72 /min Treatment Wstr Work Phone: [facility] 11-07-2022 10:08-0400 SaO2% (BldA) [Mass fraction] 99 % Treatment Wstr Work Phone: [facility] 11-07-2022 10:08-0400 Systolic blood pressure 127 mm[Hg] Treatment Wstr Work Phone: [facility] 11-06-2022 13:32-0400 Body temperature 97.5 [degF] Treatment Wstr Work Phone: [facility] 11-06-2022 13:32-0400 Diastolic blood pressure 65 mm[Hg] Treatment Wstr Work Phone: [facility] 11-06-2022 13:32-0400 Heart rate 78 /min Treatment Wstr Work Phone: [facility] 11-06-2022 13:32-0400 Respiratory rate 18 /min Treatment Wstr Work Phone: [facility] 11-06-2022 13:32-0400 Systolic blood pressure 117 mm[Hg] Treatment Wstr Work Phone: [facility] 10-18-2022 09:30-0400 Body temperature 97.3 [degF] Injection Wstr Work Phone: [facility] 10-18-2022 09:30-0400 Body weight 87.54 kg Injection Wstr Work Phone: [facility] 10-18-2022 09:30-0400 Diastolic blood pressure 71 mm[Hg] Injection Wstr Work Phone: [facility] 10-18-2022 09:30-0400 Heart rate 75 /min Injection Wstr Work Phone: [facility] 10-18-2022 09:30-0400 Systolic blood pressure 102 mm[Hg] Injection Wstr Work Phone: [facility] 09-25-2022 12:27-0400 Diastolic blood pressure 80 mm[Hg] Treatment Wstr Work Phone: [facility] 09-25-2022 12:27-0400 Heart rate 75 /min Treatment Wstr Work Phone: [facility] 09-25-2022 12:27-0400 Systolic blood pressure 126 mm[Hg] Treatment Wstr Work Phone: [facility] 09-21-2022 13:23-0400 Body temperature 97.59 [degF] Treatment Wstr Work Phone: [facility] 09-21-2022 13:23-0400 Diastolic blood pressure 57 mm[Hg] Treatment Wstr Work Phone: [facility] 09-21-2022 13:23-0400 Heart rate 87 /min Treatment Wstr Work Phone: [facility] 09-21-2022 13:23-0400 Respiratory rate 16 /min Treatment Wstr Work Phone: [facility] 09-21-2022 13:23-0400 SaO2% (BldA) [Mass fraction] 100 % Treatment Wstr Work Phone: [facility] 09-21-2022 13:23-0400 Systolic blood pressure 125 mm[Hg] Treatment Wstr Work Phone: [facility] 09-20-2022 10:34-0400 Body temperature 97.2 [degF] Serena Masci DO Work Phone: [facility] 09-20-2022 10:34-0400 Body weight 89.36 kg Serena Masci DO Work Phone: [facility] 09-20-2022 10:34-0400 Diastolic blood pressure 57 mm[Hg] Serena Masci DO Work Phone: [facility] 09-20-2022 10:34-0400 Heart rate 91 /min Serena Masci DO Work Phone: [facility] 09-20-2022 10:34-0400 SaO2% (BldA) [Mass fraction] 97 % Serena Masci DO Work Phone: [facility] 09-20-2022 10:34-0400 Systolic blood pressure 91 mm[Hg] Serena Masci DO Work Phone: [facility] 09-06-2022 09:07-0400 Body temperature 97.9 [degF] Injection Wstr Work Phone: [facility] 09-06-2022 09:07-0400 Body weight 89.36 kg Injection Wstr Work Phone: [facility] 09-06-2022 09:07-0400 Diastolic blood pressure 74 mm[Hg] Injection Wstr Work Phone: [facility] 09-06-2022 09:07-0400 Heart rate 83 /min Injection Wstr Work Phone: [facility] 09-06-2022 09:07-0400 Systolic blood pressure 112 mm[Hg] Injection Wstr Work Phone: [facility] 08-13-2022 10:33-0400 Body height 167.6 cm Kam Dangelo MD Work Phone: [facility] 08-13-2022 10:33-0400 Body weight 92.08 kg Kam Dangelo MD Work Phone: [facility] 08-13-2022 10:33-0400 Diastolic blood pressure 87 mm[Hg] Kam Dangelo MD Work Phone: [facility] 08-13-2022 10:33-0400 Heart rate 70 /min Kam Dangelo MD Work Phone: [facility] 08-13-2022 10:33-0400 SaO2% (BldA) [Mass fraction] 98 % Kam Dangelo MD Work Phone: [facility] 08-13-2022 10:33-0400 Systolic blood pressure 144 mm[Hg] Kam Dangelo MD Work Phone: [facility] 08-09-2022 14:16-0400 Body height 167.6 cm Pacc 1 Work Phone: [facility] 08-09-2022 14:16-0400 Body temperature 97.5 [degF] Pacc 1 Work Phone: [facility] 08-09-2022 14:16-0400 Body weight 92.08 kg Pacc 1 Work Phone: [facility] 08-09-2022 14:16-0400 Diastolic blood pressure 69 mm[Hg] Pacc 1 Work Phone: [facility] 08-09-2022 14:16-0400 Heart rate 96 /min Pacc 1 Work Phone: [facility] 08-09-2022 14:16-0400 Respiratory rate 16 /min Pacc 1 Work Phone: [facility] 08-09-2022 14:16-0400 SaO2% (BldA) [Mass fraction] 97 % Pacc 1 Work Phone: [facility] 08-09-2022 14:16-0400 Systolic blood pressure 119 mm[Hg] Pacc 1 Work Phone: [facility] 08-01-2022 14:59-0400 Body height 165.5 cm Serena Masci DO Work Phone: [facility] 08-01-2022 14:59-0400 Body temperature 98.29 [degF] Serena Masci DO Work Phone: [facility] 08-01-2022 14:59-0400 Body weight 91.85 kg Serena Masci DO Work Phone: [facility] 08-01-2022 14:59-0400 Diastolic blood pressure 78 mm[Hg] Serena Masci DO Work Phone: [facility] 08-01-2022 14:59-0400 Heart rate 95 /min Serena Masci DO Work Phone: [facility] 08-01-2022 14:59-0400 SaO2% (BldA) [Mass fraction] 98 % Serena Masci DO Work Phone: [facility] 08-01-2022 14:59-0400 Systolic blood pressure 124 mm[Hg] Serena Masci DO Work Phone: [facility] 07-09-2022 11:06-0400 Body temperature 96.8 [degF] Treatment Wstr Work Phone: [facility] 07-09-2022 11:06-0400 Diastolic blood pressure 77 mm[Hg] Treatment Wstr Work Phone: [facility] 07-09-2022 11:06-0400 Heart rate 90 /min Treatment Wstr Work Phone: [facility] 07-09-2022 11:06-0400 Respiratory rate 18 /min Treatment Wstr Work Phone: [facility] 07-09-2022 11:06-0400 Systolic blood pressure 119 mm[Hg] Treatment Wstr Work Phone: [facility] 07-04-2022 09:54-0400 Body height 165.7 cm Serena Edsoni DO Work Phone: [facility] 07-04-2022 09:54-0400 Body temperature 97 [degF] Serena Masci DO Work Phone: [facility] 07-04-2022 09:54-0400 Body weight 91.63 kg Serena Masci DO Work Phone: [facility] 07-04-2022 09:54-0400 Diastolic blood pressure 81 mm[Hg] Serena Masci DO Work Phone: [facility] 07-04-2022 09:54-0400 Heart rate 80 /min Serena Masci DO Work Phone: [facility] 07-04-2022 09:54-0400 SaO2% (BldA) [Mass fraction] 94 % Serena Masci DO Work Phone: [facility] 07-04-2022 09:54-0400 Systolic blood pressure 118 mm[Hg] Serena Masci DO Work Phone: [facility] 02-19-2022 09:31-0500 Body height 166.4 cm Jacinta Rivas MD Work Phone: [facility] 02-19-2022 09:31-0500 Body weight 90.72 kg Jacinta Rivas MD Work Phone: [facility] 02-19-2022 09:31-0500 Diastolic blood pressure 78 mm[Hg] Jacinta Rivas MD Work Phone: [facility] 02-19-2022 09:31-0500 Heart rate 85 /min Jacinta Rivas MD Work Phone: [facility] 02-19-2022 09:31-0500 SaO2% (BldA) [Mass fraction] 98 % Jacinta Rivas MD Work Phone: [facility] 02-19-2022 09:31-0500 Systolic blood pressure 112 mm[Hg] Jacinta Rivas MD Work Phone: [facility] 02-05-2022 10:12-0400 Body temperature 99 [degF] Victoria Duatre APRN.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 Work Phone: [facility] 02-05-2022 10:12-0400 Body weight 91.44 kg Victoria Duarte APRN.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 Work Phone: [facility] 02-05-2022 10:12-0400 Diastolic blood pressure 92 mm[Hg] Victoria Duarte APRN.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 Work Phone: [facility] 02-05-2022 10:12-0400 Heart rate 95 /min Victoria Duarte APRN.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 Work Phone: [facility] 02-05-2022 10:12-0400 Respiratory rate 24 /min Victoria Duarte APRN.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 Work Phone: [facility] 02-05-2022 10:12-0400 SaO2% (BldA) [Mass fraction] 98 % Victoria Duarte APRN.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 Work Phone: [facility] 02-05-2022 10:12-0400 Systolic blood pressure 130 mm[Hg] Victoria Duarte APRN.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 Work Phone: [facility] 01-22-2022 11:00-0400 Body temperature 98.01 [degF] Treatment Wstr Work Phone: [facility] 01-22-2022 11:00-0400 Body weight 90.49 kg Treatment Wstr Work Phone: [facility] 01-22-2022 11:00-0400 Diastolic blood pressure 79 mm[Hg] Treatment Wstr Work Phone: [facility] 01-22-2022 11:00-0400 Heart rate 69 /min Treatment Wstr Work Phone: [facility] 01-22-2022 11:00-0400 Respiratory rate 18 /min Treatment Wstr Work Phone: [facility] 01-22-2022 11:00-0400 SaO2% (BldA) [Mass fraction] 98 % Treatment Wstr Work Phone: [facility] 01-22-2022 11:00-0400 Systolic blood pressure 115 mm[Hg] Treatment Wstr Work Phone: [facility] 08-07-2021 09:02-0400 Body temperature 97.3 [degF] Treatment Wstr Work Phone: [facility] [facility] 08-07-2021 09:02-0400 Diastolic blood pressure 86 mm[Hg] Treatment Wstr Work Phone: [facility] 08-07-2021 09:02-0400 Heart rate 72 /min Treatment Wstr Work Phone: [facility] 08-07-2021 09:02-0400 Systolic blood pressure 113 mm[Hg] Treatment Wstr Work Phone: [facility] 08-02-2021 09:00-0400 Body height 165.7 cm Serena Masci DO Work Phone: [facility] 08-02-2021 09:00-0400 Body temperature 98.71 [degF] Serena Masci DO Work Phone: [facility] 08-02-2021 09:00-0400 Body weight 90.27 kg Serena Masci DO Work Phone: [facility] 08-02-2021 09:00-0400 Diastolic blood pressure 75 mm[Hg] Serena Masci DO Work Phone: [facility] 08-02-2021 09:00-0400 Heart rate 86 /min Serena Masci DO Work Phone: [facility] 08-02-2021 09:00-0400 Systolic blood pressure 111 mm[Hg] Serena Carrasco DO Work Phone: [facility] 03-14-2017 11:48-0500 BMI (Body Mass Index) 30.46 kg/m2 [facility] Work Phone: 03-14-2017 11:48-0500 Body weight 88.23 kg [facility] Work Phone: 03-14-2017 11:48-0500 BP Diastolic 82 mm[Hg] [facility] [...] 03-14-2017 11:48-0500 Pulse Oximetry 98 % [facility] Work Phone: Comment on above: Room air 03-14-2017 11:48-0500 Respiratory Rate 18 /min [facility] Work Phone: Comment on above: Pattern: Unlabored 03-14-2017 11:48-0500 Weight 88.23 kg [facility] Work Phone: 02-11-2017 11:50-0500 BMI (Body Mass Index) 30.44 kg/m2 [facility] Work Phone: 02-11-2017 11:50-0500 Body weight 88.17 kg [facility] Work Phone: 02-11-2017 11:50-0500 BP Diastolic 72 mm[Hg] Mindi Dasilva [facility] [[email or web address] Internal Medicine Work Phone: Comment on above: Patient Position: Standing; Cuff Locatio n: Left Arm; Cuff Size: Large 02-11-2017 11:50-0500 BP Systolic 120 mm[Hg] [facility] Work Phone: Comment on above: Patient Position: Standing; Cuff Locatio n: Left Arm; Cuff Size: Large 02-11-2017 11:50-0500 BSA (Body Surface Area) 2 m2 Mindi Dasilva [facility] [[email or web address] Internal Medicine Work Phone: 02-11-2017 11:50-0500 Height 170.18 cm Mindi Dasilva [facility] [[email or web address] Internal Medicine Work Phone: 02-11-2017 11:50-0500 Pulse (Heart Rate) 98 /min Mindi Dasilva [facility] [[email or web address] Internal Medicine Work Phone: Comment on above: Pattern: Regular 02-11-2017 11:50-0500 Pulse Oximetry 98 % Mindi Dasilva [facility] [[email or web address] Internal Medicine Work Phone: Comment on above: Room air 02-11-2017 11:50-0500 Respiratory Rate 18 /min Mindi Dasilva [facility] [[email or web address] Internal Medicine Work Phone: Comment on above: Pattern: Unlabored 02-11-2017 11:50-0500 Weight 88.17 kg Mindi Paredes [facility] Work Phone: 07-28-2015 07:53-0400 BMI (Body Mass Index) 29.5 kg/m2 Mindi Dasilva [facility] [[email or web address] Internal Medicine Work Phone: 07-28-2015 07:53-0400 Body weight 85.45 kg Mindi Dasilva [facility] [[email or web address] Internal Medicine Work Phone: 07-28-2015 07:53-0400 BP Diastolic 78 mm[Hg] Mindi Dasilva [facility] [[email or web address]] Internal Medicine Work Phone: Comment on above: Patient Position: Sitting; Cuff Location : Left Arm; Cuff Size: Large 07-28-2015 07:53-0400 BP Systolic 118 mm[Hg] Mindi Dasilva [facility] [[email or web address]] Internal Medicine Work Phone: Comment on above: Patient Position: Sitting; Cuff Location : Left Arm; Cuff Size: Large 07-28-2015 07:53-0400 BSA (Body Surface Area) 1.97 m2 Mindi Dasilva [facility] [[email or web address] Internal Medicine Work Phone: 07-28-2015 07:53-0400 Height 170.18 cm Mindi Dasilva [facility] [[email or web address] Internal Medicine Work Phone: 07-28-2015 07:53-0400 Pulse (Heart Rate) 108 /min Mindi Dasilva [facility] [[email or web address] Internal Medicine Work Phone: Comment on above: Pattern: Regular 07-28-2015 07:53-0400 Pulse Oximetry 98 % Mindi Dasilva [facility] [[email or web address] Internal Medicine Work Phone: Comment on above: Room air 07-28-2015 07:53-0400 Respiratory Rate 18 /min Mindi Dasilva [facility] [[email or web address] Internal Medicine Work Phone: Comment on above: Pattern: Unlabored 07-28-2015 07:53-0400 Weight 85.45 kg Mindi Dasilva [facility] [[email or web address] Internal Medicine Work Phone: 07-18-2015 11:48-0400 BMI (Body Mass Index) 29.97 kg/m2 Mindi Dasilva [facility] [[email or web address] Internal Medicine Work Phone: 07-18-2015 11:48-0400 Body Temperature 98.7 [degF] Mindi Dasilva [facility] [[email or web address] Internal Medicine Work Phone: 07-18-2015 11:48-0400 Body weight 86.81 kg Mindi Dasilva [facility] [[email or web address] Internal Medicine Work Phone: 07-18-2015 11:48-0400 BP Diastolic 64 mm[Hg] Mindi Dasilva [facility] [[email or web address] Internal Medicine Work Phone: Comment on above: Patient Position: Sitting; Cuff Location : Left Arm; Cuff Size: Large 07-18-2015 11:48-0400 BP Systolic 120 mm[Hg] [facility] Work [...] 07-11-2015 14:56-0400 Body weight 86.81 kg Mindi Paredes [facility] Work Phone: 07-11-2015 14:56-0400 BP [...] air 07-11-2015 14:56-0400 Weight 86.81 kg Mindi Paredes [facility] Work Phone: 06-13-2015 13:18-0500 Body Temperature 97.7 [degF] [facility] Work Phone: Comment on above: Method: Temporal 06-13-2015 13:18-0500 Body weight 83.52 kg Mind[facility] Work Phone: 06-13-2015 13:18-0500 BP [...] 13:18-0500 Pulse Oximetry 99 % [facility] Work Phone: Comment on above: Room air 06-13-2015 13:18-0500 Respiratory Rate 16 /min [facility] Work Phone: Comment on above: Pattern: Unlabored 06-13-2015 13:18-0500 Weight 83.52 kg [facility]i [facility] Work Phone: 10-18-2014 09:46-0400 Body Temperature 97.2 [degF] [facility] Work Phone: 10-18-2014 09:46-0400 Body weight 83.52 kg Mindi Paredes [facility] Work Phone: 10-18-2014 09:46-0400 BP [...] 09:16-0400 Body weight 83.01 kg [facility] Work Phone: 07-16-2014 09:16-0400 BP [...] 09:16-0400 Respiratory Rate 16 /min [facility] Work Phone: Comment on above: Pattern: Unlabored 07-16-2014 09:16-0400 Weight 83.01 kg Mindi Paredes [facility] Work Phone: 07-02-2014 09:08-0400 Body Temperature 98.2 [degF] [facility] Work Phone: Comment on above: Method: Oral 07-02-2014 09:08-0400 Body weight 83.01 kg Mindi Pared[facility] Work Phone: 07-02-2014 09:08-0400 BP Diastolic 88 mm[Hg] [facility] Work Phone: Comment on above: Patient Position: Sitting; Cuff Location : Left Arm; Cuff Size: Standard 07-02-2014 09:08-0400 BP Systolic 146 mm[Hg] [facility] Work Phone: Comment on above: Patient Position: Sitting; Cuff Location : Left Arm; Cuff Size: Standard 07-02-2014 09:08-0400 Pulse (Heart Rate) 70 /min [facility] Work Phone: Comment on above: Pattern: Regular 07-02-2014 09:08-0400 Pulse Oximetry 98 % [facility] Work Phone: Comment on above: Room air 07-02-2014 09:08-0400 Respiratory Rate 18 /min [facility] Work Phone: 07-02-2014 09:08-0400 Weight 83.01 kg Mind[facility] Work Phone: 03-19-2014 08:56-0500 Body weight 83.01 kg Mindi Paredes [facility] Work Phone: 03-19-2014 08:56-0500 BP Diastolic 88 mm[Hg] [facility] Work Phone: Comment on above: Patient Position: Sitting; Cuff Location : Left Arm; Cuff Size: Large 03-19-2014 08:56-0500 BP Systolic 128 mm[Hg] Mindi Dasilva [facility] [[email or web address]] Internal Medicine Work Phone: Comment on above: Patient Position: Sitting; Cuff Location : Left Arm; Cuff Size: Large 03-19-2014 08:56-0500 Pulse (Heart Rate) 76 /min Mindi Dasilva [facility] [[email or web address]] Internal Medicine Work Phone: Comment on above: Pattern: Regular 03-19-2014 08:56-0500 Pulse Oximetry 98 % Mindi Dasilva [facility] [[email or web address] Internal Medicine Work Phone: Comment on above: Room air 03-19-2014 08:56-0500 Respiratory Rate 20 /min Mindi Dasilva [email or web address] Internal Medicine Work Phone: Comment on above: Pattern: Unlabored 03-19-2014 08:56-0500 Weight 83.01 kg Mindi Dasilva [email or web address] Work Phone: 11-30-2013 10:130400 BMI (Body Mass Index) 29.06 kg/m2 Mindi Dasilva [email or web address] Work Phone: 11-30-2013 10:13-0400 Body weight 84.17 kg Mindi Dasilva [facility] [[email or web address] Work Phone: 11-30-2013 10:13-0400 BP Diastolic 88 mm[Hg] Mindi Dasilva [facility] [[email or web address] Work Phone: Comment on above: Patient Position: Sitting; Cuff Location : Left Arm; Cuff Size: Standard 11-30-2013 10:130400 BP Systolic 142 mm[Hg] Mindi Dasilva [facility] [[email or web address]] [facility] Work Phone: Comment on above: Patient Position: Sitting; Cuff Location : Left Arm; Cuff Size: Standard 11-30-2013 10:130400 BSA (Body Surface Area) 1.96 m2 Mindi Dasilva [email or web address] Work Phone: 11-30-2013 10:13-0400 Height 170.18 cm Mindi Paredes [facility] Work Phone: 11-30-2013 10:0400 Pulse (Heart Rate) 86 /min Mindi Paredes [facility] Work Phone: Comment on above: Pattern: Regular 11-30-2013 10:040 Pulse Oximetry 97 % Mindi Dasilva [email or web address] Work Phone: Comment on above: Room air 11-30-2013 10:0400 Respiratory Rate 20 /min Mindi Paredes [facility] Work Phone: Comment on above: Pattern: Unlabored 11-30-2013 10:040 Weight 84.17 kg Mindi Dasilva [facility] [[email or web address] Internal Medicine Work Phone: 11-18-2013 15:19-0400 BMI (Body Mass Index) 29.29 kg/m2 Mindi Dasilva [facility] [[email or web address] Medicine Work Phone: 11-18-2013 15:19-0400 Body Temperature 97 [degF] Mindi Dasilva [facility] [[email or web address] Internal Medicine Work Phone: Comment on above: Method: Oral 11-18-2013 15:-0400 Body weight 84.82 kg Mindi Paredes [facility] Work Phone: 11-18-2013 15:19-0400 BP Diastolic 82 mm[Hg] Mindi Dasilva [facility] [[email or web address]] Internal Medicine Work Phone: Comment on above: Patient Position: Sitting; Cuff Location : Left Arm; Cuff Size: Standard 11-18-2013 15:19-0400 BP Systolic 146 mm[Hg] Mindi Dasilva [facility] [[email or web address]] Internal Medicine Work Phone: Comment on above: Patient Position: Sitting; Cuff Location : Left Arm; Cuff Size: Standard 11-18-2013 15:19-0400 BSA (Body Surface Area) 1.97 m2 Mindi Dasilva [email or web address] Internal Medicine Work Phone: 11-18-2013 15:19-0400 Height 170.18 cm Mindi Dasilva [email or web address] Internal Medicine Work Phone: 11-18-2013 15:19-0400 Pulse (Heart Rate) 80 /min Mindi Paredes [facility] Work Phone: Comment on above: Pattern: Regular 11-18-2013 15:19-0400 Pulse Oximetry 98 % Mindi Paredes [facility] Work Phone: Comment on above: Room air 11-18-2013 15:19-0400 Respiratory Rate 18 /min Mindi Paredes [facility] Work Phone: 11-18-2013 15:19-0400 Weight 84.82 kg Mindi Paredes [facility] Work Phone: 11-02-2013 09:38-0400 BMI (Body Mass Index) 29.29 kg/m2 Mindi Paredes [facility] Work Phone: 11-02-2013 09:38-0400 Body Temperature 97.4 [degF] Mindi Dasilva [email or web address] Work Phone: Comment on above: Method: Oral 11-02-2013 09:38-0400 Body weight 84.82 kg Mindi Paredes [facility] Work Phone: 11-02-2013 09:38-0400 BP Diastolic 82 mm[Hg] Mindi Dasilva [email or web address] Work Phone: Comment on above: Patient Position: Sitting; Cuff Location : Left Arm; Cuff Size: Standard 11-02-2013 09:38-0400 BP Systolic 136 mm[Hg] Mindi Dasilva [email or web address] Work Phone: Comment on above: Patient Position: Sitting; Cuff Location : Left Arm; Cuff Size: Standard 11-02-2013 09:38-0400 BSA (Body Surface Area) 1.97 m2 Mindi P[facility] Work Phone: 11-02-2013 09:38-0400 Height 170.18 cm Mindi Paredes [facility] Work Phone: 11-02-2013 09:38-0400 Pulse (Heart Rate) 76 /min Mindi Paredes [facility] Work Phone: Comment on above: Pattern: Regular 11-02-2013 09:38-0400 Pulse Oximetry 98 % [facility] [...] m2 Mindi Paredes [facility] Work Phone: 10-14-2013 09:08-0400 Height 170.18 cm [facility] Work Phone: 10-14-2013 09:08-0400 Pulse (Heart Rate) 74 /min Mindi Paredes [facility] Work Phone: Comment on above: Pattern: Regular 10-14-2013 09:08-0400 Pulse Oximetry 97 % Mindi Paredes [facility] Work Phone: Comment on above: Room air 10-14-2013 09:08-0400 Weight 84.82 kg Mindi Paredes [facility] Work Phone: 01-15-2013 11:42-0400 BMI (Body Mass Index) 28.72 kg/m2 Mindi Dasilva [email or web address] Work Phone: 01-15-2013 11:42-0400 Body weight 83.18 kg Mindi Dasilva [email or web address] Work Phone: 01-15-2013 11:42-0400 BP Diastolic 98 mm[Hg] Mindi Dasilva [email or web address] Work Phone: Comment on above: Patient Position: Sitting; Cuff Location : Left Arm; Cuff Size: Large 01-15-2013 11:42-0400 BP Systolic 132 mm[Hg] Mindi Dasilva [email or web address] Work Phone: Comment on above: Patient Position: Sitting; Cuff Location : Left Arm; Cuff Size: Large 01-15-2013 11:42-0400 BSA (Body Surface Area) 1.95 m2 Mindi Dasilva [email or web address] Work Phone: 01-15-2013 11:42-0400 Height 170.18 cm Mindi Dasilva [email or web address] Work Phone: 01-15-2013 11:42-0400 Pulse (Heart Rate) 64 /min Mindi Dasilva [email or web address] Work Phone: Comment on above: Pattern: Regular 01-15-2013 11:42-0400 Respiratory Rate 18 /min Mindi Dasilva [email or web address] Work Phone: Comment on above: Pattern: Unlabored 01-15-2013 11:42-0400 Weight 83.18 kg Mindi Dasilva [email or web address] Work Phone: 10-11-2011 07:43-0400 BMI (Body Mass Index) 28.99 kg/m2 Mindi Dasilva [email or web address] Work Phone: 10-11-2011 07:43-0400 Body weight 83.97 kg Mindi Dasilva [email or web address] Work Phone: 10-11-2011 07:43-0400 BP Diastolic 82 mm[Hg] Mindi Dasilva [email or web address] Medicine Work Phone: Comment on above: Patient Position: Sitting; Cuff Location : Left Arm; Cuff Size: Large 10-11-2011 07:43-0400 BP Systolic 138 mm[Hg] Mindi Dasilva [email or web address] Work Phone: Comment on above: Patient Position: Sitting; Cuff Location : Left Arm; Cuff Size: Large 10-11-2011 07:43-0400 BSA (Body Surface Area) 1.96 m2 Mindi Dasilva [email or web address] Work Phone: 10-11-2011 07:43-0400 Height 170.18 cm Mindi Dasilva [email or web address] Work Phone: 10-11-2011 07:43-0400 Pulse (Heart Rate) 68 /min Mindi Dasilva [email or web address] Work Phone: Comment on above: Pattern: Regular 10-11-2011 07:43-0400 Respiratory Rate 18 /min Mindi Dasilva [email or web address] Work Phone: Comment on above: Pattern: Unlabored 10-11-2011 07:43-0400 Weight 83.97 kg Mindi Dasilva [email or web address] Work Phone: 08-29-2011 16:06-0400 BMI (Body Mass Index) 28.85 kg/m2 Mindi Dasilva [email or web address] Work Phone: 08-29-2011 16:06-0400 Body weight 83.55 kg Mindi Dasilva [email or web address] Work Phone: 08-29-2011 16:06-0400 BP Diastolic 98 mm[Hg] Mindi Dasilva [email or web address] Work Phone: Comment on above: Patient Position: Sitting; Cuff Location : Left Arm; Cuff Size: Large 08-29-2011 16:06-0400 BP Systolic 140 mm[Hg] Mindi Dasilva [email or web address] Work Phone: Comment on above: Patient Position: Sitting; Cuff Location : Left Arm; Cuff Size: Large 08-29-2011 16:06-0400 BSA (Body Surface Area) 1.95 m2 Mindi Dasilva [email or web address] Work Phone: 08-29-2011 16:06-0400 Height 170.18 cm Mindi Dasilva [email or web address] Work Phone: 08-29-2011 16:06-0400 Pulse (Heart Rate) 60 /min Mindi Dasilva [email or web address] Work Phone: Comment on above: Pattern: Regular 08-29-2011 16:06-0400 Respiratory Rate 16 /min Mindi Dasilva [email or web address] Work Phone: Comment on above: Pattern: Unlabored 08-29-2011 16:06-0400 Weight 83.55 kg Mindi Dasilva [email or web address] Work Phone: 08-01-2011 10:51-0400 BMI (Body Mass Index) 29.13 kg/m2 Mindi Dasilva [email or web address] Work Phone: 08-01-2011 10:51-0400 Body Temperature 99 [degF] Mindi Dasilva [email or web address] Work Phone: 08-01-2011 10:51-0400 Body weight 84.37 kg Mindi Dasilva [email or web address] Work Phone: 08-01-2011 10:51-0400 BP Diastolic 90 mm[Hg] Mindi Dasilva [email or web address] Work Phone: Comment on above: Patient Position: Sitting; Cuff Location : Left Arm; Cuff Size: Standard 08-01-2011 10:51-0400 BP Systolic 150 mm[Hg] Mindi Dasilva [email or web address] Work Phone: Comment on above: Patient Position: Sitting; Cuff Location : Left Arm; Cuff Size: Standard 08-01-2011 10:51-0400 BSA (Body Surface Area) 1.96 m2 Mindi Dasilva [email or web address] Work Phone: 08-01-2011 10:51-0400 Height 170.18 cm Mindi Dasilva [email or web address] Work Phone: 08-01-2011 10:51-0400 Pulse (Heart Rate) 68 /min Mindi Dasilva [email or web address] Work Phone: Comment on above: Pattern: Regular 08-01-2011 10:51-0400 Respiratory Rate 16 /min Mindi Dasilva [email or web address] Work Phone: Comment on above: Pattern: Unlabored 08-01-2011 10:51-0400 Weight 84.37 kg Mindi Dasilva [email or web address] Work Phone: 11-10-2010 13:31-0400 BMI (Body Mass Index) 29.2 kg/m2 Mindi Dasilva [email or web address] Work Phone: 11-10-2010 13:31-0400 Body Temperature 98.6 [degF] Mindi Dasilva [email or web address] Work Phone: Comment on above: Method: Oral 11-10-2010 13:31-0400 Body weight 84.57 kg Mindi Dasilva [email or web address] Work Phone: 11-10-2010 13:31-0400 BP Diastolic 86 mm[Hg] Mindi Dasilva [email or web address] Work Phone: Comment on above: Patient Position: Sitting; Cuff Location : Right Arm; Cuff Size: Standard 11-10-2010 13:31-0400 BP Systolic 122 mm[Hg] Mindi Dasilva [email or web address] Work Phone: Comment on above: Patient Position: Sitting; Cuff Location : Right Arm; Cuff Size: Standard 11-10-2010 13:31-0400 BSA (Body Surface Area) 1.96 m2 Mindi Dasilva [email or web address] Work Phone: 11-10-2010 13:31-0400 Height 170.18 cm Mindi Dasilva [email or web address] Work Phone: 11-10-2010 13:31-0400 Pulse (Heart Rate) 80 /min Mindi Dasilva [email or web address] Work Phone: Comment on above: Pattern: Regular 11-10-2010 13:31-0400 Respiratory Rate 20 /min Mindi Dasilva [email or web address] Work Phone: Comment on above: Pattern: Unlabored 11-10-2010 13:31-0400 Weight 84.57 kg Minid Dasilva [email or web address] Work Phone: 10-10-2010 09:23-0400 BMI (Body Mass Index) 28.87 kg/m2 Mindi [facility] Work Phone: 10-10-2010 09:23-0400 Body weight 83.6 kg Mindi Dasilva [email or web address] Work Phone: 10-10-2010 09:23-0400 BP Diastolic 90 mm[Hg] Mindi Dasilva [email or web address] Work Phone: Comment on above: Patient Position: Sitting; Cuff Location : Left Arm; Cuff Size: Large 10-10-2010 09:23-0400 BP Systolic 128 mm[Hg] Mindi Dasilva [email or web address] Work Phone: Comment on above: Patient Position: Sitting; Cuff Location : Left Arm; Cuff Size: Large 10-10-2010 09:23-0400 BSA (Body Surface Area) 1.95 m2 Mindi Dasilva [email or web address] Work Phone: 10-10-2010 09:23-0400 Height 170.18 cm Mindi Dasilva [facility] [[email or web address] Internal Medicine Work Phone: 10-10-2010 09:23-0400 Pulse (Heart Rate) 72 /min Mindi Dasilva [facility] [[email or web address]] Internal Medicine Work Phone: Comment on above: Pattern: Regular 10-10-2010 09:23-0400 Respiratory Rate 18 /min Mindi Dasilva [facility] [[email or web address]] Internal Medicine Work Phone: Comment on above: Pattern: Unlabored 10-10-2010 09:23-0400 Weight 83.6 kg Mindi Dasilva [facility] [[email or web address]] Internal Medicine Work Phone: 04-21-2010 14:07-0500 Body Temperature 97.9 [degF] Mindi Dasilva [facility] [[email or web address]] Internal Medicine Work Phone: Comment on above: Method: Oral 04-21-2010 14:07-0500 Body weight 85.39 kg Mindi Dasilva [facility] [[email or web address]] Internal Medicine Work Phone: 04-21-2010 14:07-0500 BP Diastolic 78 mm[Hg] Mindi Dasilva [facility] [...] Oral 04-17-2010 15:49-0500 Body weight 85.39 kg Midni Dasilva [facility] Work Phone: 04-17-2010 [...] Unlabored 04-17-2010 15:49-0500 Weight 85.39 kg Mindi Paredes Internal Medicine Work Phone: 09-19-2009 13:28-0400 Body Temperature 98 [degF] Mindi Dasilva [facility] [[email or web address]] Internal Medicine Work Phone: Comment on above: Method: Oral 09-19-2009 13:28-0400 Body weight 85.39 kg Mindi Dasilva [facility] [[email or web address]] Internal Medicine Work Phone: 09-19-2009 13:28-0400 BP Diastolic 68 mm[Hg] Mindi Dasilva [facility] [[email or web address]] Internal Medicine Work Phone: Comment on above: Patient Position: Sitting; Cuff Location : Left Arm; Cuff Size: Standard 09-19-2009 13:28-0400 BP Systolic 120 mm[Hg] Mindi Dasilva [facility] [[email or web address]] Internal Medicine Work Phone: Comment on above: Patient Position: Sitting; Cuff Location : Left Arm; Cuff Size: Standard 09-19-2009 13:28-0400 Pulse (Heart Rate) 70 /min Mindi Dasilva [facility] [[email or web address]] Internal Medicine Work Phone: Comment on above: Pattern: Regular 09-19-2009 13:28-0400 Respiratory Rate 18 /min Mindi Dasilva [facility] [[email or web address]] Internal Medicine Work Phone: Comment on above: Pattern: Unlabored 09-19-2009 13:28-0400 Weight 85.39 kg Mindi Dasilva [facility] [[email or web address]] Internal Medicine Work Phone: 09-09-2009 12:18-0400 BMI (Body Mass Index) 40.47 kg/m2 Mindi Dasilva [facility] Work Phone: 09-09-2009 12:18-0400 Body weight 84.82 kg Mindi Dasilva [facility] [[email or web address]] Internal Medicine Work Phone: 09-09-2009 12:18-0400 BP Diastolic 84 mm[Hg] Mindi Dasilva [facility] [[email or web address]] Internal Medicine Work Phone: Comment on above: Patient Position: Sitting; Cuff Location : Left Arm; Cuff Size: Large 09-09-2009 12:18-0400 BP Systolic 120 mm[Hg] Mindi Dasilva [facility] [[email or web address]] Internal Medicine Work Phone: Comment on above: Patient Position: Sitting; Cuff Location : Left Arm; Cuff Size: Large 09-09-2009 12:18-0400 BSA (Body Surface Area) 1.75 m2 Mindi Dasilva [facility] [[email or web address]] Internal Medicine Work Phone: 09-09-2009 12:18-0400 Height 144.78 cm Mindi Dasilva [facility] [[email or web address]] Internal Medicine Work Phone: 09-09-2009 12:18-0400 Pulse (Heart Rate) 68 /min Mindi Dasilva [facility] [[email or web address]] Internal Medicine Work Phone: Comment on above: Pattern: Regular 09-09-2009 12:18-0400 Respiratory Rate 20 /min Mindi Dasilva [facility] [[email or web address]] Internal Medicine Work Phone: Comment on above: Pattern: Unlabored 09-09-2009 12:18-0400 Weight 84.82 kg Mindi Dasilva [facility] [[email or web address]] Internal Medicine Work Phone: 01-28-2009 10:33-0400 Body Temperature 100.4 [degF] Mindi Dasilva [facility] [[email or web address]] Internal Medicine Work Phone: Comment on above: Method: Oral 01-28-2009 10:33-0400 Body weight 0 kg Mindi Dasilva [facility] [[email or web address]] Internal Medicine Work Phone: 01-28-2009 10:33-0400 BP Diastolic 78 mm[Hg] Mindi Dasilva [facility] [[email or web address]] Internal Medicine Work Phone: Comment on above: Patient Position: Sitting; Cuff Location : Left Arm; Cuff Size: Standard 01-28-2009 10:33-0400 BP Systolic 118 mm[Hg] Mindi Dasilva [facility] [[email or web address]] Internal Medicine Work Phone: Comment on above: Patient Position: Sitting; Cuff Location : Left Arm; Cuff Size: Standard 01-28-2009 10:33-0400 Head Circumference 0 cm Mindi Dasilva [facility] [[email or web address]] Internal Medicine Work Phone: 01-28-2009 10:33-0400 Height 0 cm Mindi Paredes Internal Medicine Work Phone: 01-28-2009 10:33-0400 Pulse [...] 14:48-0500 BP Diastolic 68 mm[Hg] Mindi Dasilva [facility] [[email or web address]] Internal Medicine Work Phone: Comment on above: Patient Position: Sitting; Cuff Location : Left Arm; Cuff Size: Standard 05-11-2008 14:48-0500 BP Systolic 116 mm[Hg] Mindi Paredes Internal Medicine Work Phone: Comment on above: Patient Position: Sitting; Cuff Location : Left Arm; Cuff Size: Standard 05-11-2008 14:48-0500 Head Circumference 0 cm Mindi Paredes Internal Medicine Work Phone: 05-11-2008 14:48-0500 Height 0 cm Mindi Paredes Internal Medicine Work Phone: 05-11-2008 14:48-0500 Pulse (Heart Rate) 68 /min Mindi Paredes Internal Medicine Work Phone: Comment on above: Pattern: Regular 05-11-2008 14:48-0500 Pulse Oximetry 97 % Mindi Dasilva [facility] [[email or web address]] Internal Medicine Work Phone: Comment on above: Room air 05-11-2008 14:48-0500 Respiratory Rate 18 /min Mindi Dasilva [facility] [[email or web address]] Internal Medicine Work Phone: Comment on above: Pattern: Unlabored 05-11-2008 14:48-0500 Weight 83.92 kg Mindi Dasilva [facility] [[email or web address]] Internal Medicine Work Phone: 09-04-2007 09:43-0400 BMI (Body Mass Index) 30.71 kg/m2 Mindi Dasilva [facility] [[email or web address]] Internal Medicine Work Phone: 09-04-2007 09:43-0400 Body weight 86.3 kg Mindi Dasilva [facility] [[email or web address]] Internal Medicine Work Phone: 09-04-2007 09:43-0400 BP Diastolic 88 mm[Hg] Mindi Dasilva [facility] [[email or web address]] Internal Medicine Work Phone: Comment on above: Patient Position: Sitting; Cuff Location : Left Arm; Cuff Size: Standard 09-04-2007 09:43-0400 BP Systolic 138 mm[Hg] Mindi Dasilva [facility] [[email or web address]] Internal Medicine Work Phone: Comment on above: Patient Position: Sitting; Cuff Location : Left Arm; Cuff Size: Standard 09-04-2007 09:43-0400 BSA (Body Surface Area) 1.96 m2 Mindi Dasilva [facility] [[email or web address]] Internal Medicine Work Phone: 09-04-2007 09:43-0400 Head Circumference 0 cm Mindi Dasilva [facility] [[email or web address]] Internal Medicine Work Phone: 09-04-2007 09:43-0400 Height 167.64 cm Mindi Dasilva [facility] [[email or web address]] Internal Medicine Work Phone: 09-04-2007 09:43-0400 Pulse (Heart Rate) 72 /min Mindi Dasilva [facility] [[email or web address]] Internal Medicine Work Phone: Comment on above: Pattern: Regular 09-04-2007 09:43-0400 Respiratory Rate 20 /min Mindi Dasilva [facility] [[email or web address]] Internal Medicine Work Phone: Comment on above: Pattern: Unlabored 09-04-2007 09:43-0400 Weight 86.3 kg Mindi Dasilva [facility] [[email or web address]] Internal Medicine Work Phone: 03-07-2007 09:42-0500 BMI (Body Mass Index) 30.4 kg/m2 Mindi Dasilva [facility] [[email or web address]] Internal Medicine Work Phone: 03-07-2007 09:42-0500 Body weight 85.45 kg Mindi Dasilva [facility] [[email or web address]] Internal Medicine Work Phone: 03-07-2007 09:42-0500 BP Diastolic 70 mm[Hg] Mindi Dasilva [facility] [[email or web address]] Internal Medicine Work Phone: Comment on above: Patient Position: Sitting; Cuff Location : Left Arm; Cuff Size: Standard 03-07-2007 09:42-0500 BP Systolic 118 mm[Hg] Mindi Dasilva [facility] [[email or web address]] Internal Medicine Work Phone: Comment on above: Patient Position: Sitting; Cuff Location : Left Arm; Cuff Size: Standard 03-07-2007 09:42-0500 BSA (Body Surface Area) 1.95 m2 Mindi Dasilva [facility] [[email or web address]] Internal Medicine Work Phone: 03-07-2007 09:42-0500 Head Circumference 0 cm Mindi Dasilva [facility] [[email or web address]] Internal Medicine Work Phone: 03-07-2007 09:42-0500 Height 167.64 cm Mindi Dasilva [facility] [[email or web address]] Internal Medicine Work Phone: 03-07-2007 09:42-0500 Pulse (Heart Rate) 64 /min Mindi Dasilva [facility] [[email or web address]] Internal Medicine Work Phone: Comment on above: Pattern: Regular 03-07-2007 09:42-0500 Respiratory Rate 16 /min Mindi Dasilva [facility] [[email or web address]] Internal Medicine Work Phone: Comment on above: Pattern: Unlabored 03-07-2007 09:42-0500 Weight 85.45 kg Mindi Dasilva [facility] [[email or web address]] Internal Medicine Work Phone: 09-04-2006 09:20-0400 BMI (Body Mass Index) 30.51 kg/m2 Mindi Dasilva [facility] [[email or web address]] Internal Medicine Work Phone: 09-04-2006 09:20-0400 Body Temperature 98.3 [degF] Mindi Dasilva [facility] [[email or web address]] Internal Medicine Work Phone: Comment on above: Method: Oral 09-04-2006 09:20-0400 Body weight 85.73 kg Mindi Paredes Internal Medicine Work Phone: 09-04-2006 09:20-0400 BP Diastolic 76 mm[Hg] Mindi Dasilva [facility] [[email or web address]] Internal Medicine Work Phone: Comment on above: Patient Position: Sitting; Cuff Location : Left Arm; Cuff Size: Standard 09-04-2006 09:20-0400 BP Systolic 122 mm[Hg] Mindi Dasilva [facility] [[email or web address]] Internal Medicine Work Phone: Comment on above: Patient Position: Sitting; Cuff Location : Left Arm; Cuff Size: Standard 09-04-2006 09:20-0400 BSA (Body Surface Area) 1.95 m2 Mindi Dasilva [facility] [[email or web address]] Internal Medicine Work Phone: 09-04-2006 09:20-0400 Head Circumference 0 cm Mindi Dasilva [facility] [[email or web address]] Internal Medicine Work Phone: 09-04-2006 09:20-0400 Height 167.64 cm Mindi Dasilva [facility] [[email or web address]] Internal Medicine Work Phone: 09-04-2006 09:20-0400 Pulse (Heart Rate) 70 /min Mindi Dasilva [facility] [[email or web address]] Internal Medicine Work Phone: Comment on above: Pattern: Regular 09-04-2006 09:20-0400 Respiratory Rate 17 /min Mindi Dasilva [facility] [[email or web address]] Internal Medicine Work Phone: Comment on above: Pattern: Unlabored 09-04-2006 09:20-0400 Weight 85.73 kg Mindi Dasilva [facility] [[email or web address]] Internal Medicine Work Phone: 07-18-2006 09:30-0400 BMI (Body Mass Index) 30.51 kg/m2 Mindi Dasilva [facility] [[email or web address]] Internal Medicine Work Phone: 07-18-2006 09:30-0400 Body Temperature 98.4 [degF] Mindi Dasilva [facility] [[email or web address]] Internal Medicine Work Phone: Comment on above: Method: Undefined 07-18-2006 09:30-0400 Body weight 85.73 kg Mindi Dasilva [facility] [[email or web address]] Internal Medicine Work Phone: 07-18-2006 09:30-0400 BP Diastolic 74 mm[Hg] Mindi Dasilva [facility] [[email or web address]] Internal Medicine Work Phone: Comment on above: Patient Position: Sitting; Cuff Location : Left Arm; Cuff Size: Standard 07-18-2006 09:30-0400 BP Systolic 126 mm[Hg] Mindi Dasilva [facility] [[email or web address]] Internal Medicine Work Phone: Comment on above: Patient Position: Sitting; Cuff Location : Left Arm; Cuff Size: Standard 07-18-2006 09:30-0400 BSA (Body Surface Area) 1.95 m2 Mindi Dasilva [facility] [[email or web address]] Internal Medicine Work Phone: 07-18-2006 09:30-0400 Head Circum[facility] 0 [facility] Work Phone: 07-18-2006 09:30-0400 Height 167.64 cm [facility] Work Phone: 07-18-2006 09:30-0400 Weight 85.73 [facility] Work Phone: 06-27-2006 10:27-0400 BMI (Body Mass Index) 30.51 kg/m2 [facility] Work Phone: 06-27-2006 10:27-0400 Body Temperature 98.1 [degF] Mindi Dasilva [facility] [[email or web address]] Internal Medicine Work Phone: Comment on above: Method: Undefined 06-27-2006 10:27-0400 Body weight 85.73 kg Mindi Dasilva [facility] [[email or web address]] Internal Medicine Work Phone: 06-27-2006 10:27-0400 BP Diastolic 64 mm[Hg] [facility] Work Phone: Comment on above: Patient Position: Undefined; Cuff Locati on: Undefined; Cuff Size: Undefined 06-27-2006 10:27-0400 BP Systolic 132 mm[Hg] [facility] Work Phone: Comment on above: Patient Position: Undefined; Cuff Locati on: Undefined; Cuff Size: Undefined 06-27-2006 10:27-0400 BSA (Body Surface Area) 1.95 m2 Mindi Dasilva [facility] [[email or web address]] Internal Medicine Work Phone: 06-27-2006 10:270400 Head Circumference 0 cm Mindi Dasilva [facility] [[email or web address]] Internal Medicine Work Phone: 06-27-2006 10:27-0400 Height 167.64 cm Mindi Dasilva [facility] [[email or web address]] Internal Medicine Work Phone: 06-27-2006 10:27-0400 Pulse (Heart Rate) 68 /min Mindi Dasilva [facility] [[email or web address]] Internal Medicine Work Phone: Comment on above: Pattern: Regular 06-27-2006 10:27-0400 Respiratory Rate 16 /min Mindi Dasilva [facility] [[email or web address]] Internal Medicine Work Phone: Comment on above: Pattern: Undefined 06-27-2006 10:27-0400 Weight 85.73 kg Mindi Dasilva [facility] [[email or web address]] Internal Medicine Work Phone: Encounters Encounter Date Encounter Type Care Provider Facility Start: 01-26-2025 End: 01-26-2025 ambulatory MICKI BLOCK Facility:[id number] Start: 01-26-2025 End: 01-26-2025 ambulatory JACINTA D TALAMPAS Facility:[facility] Start: 01-21-2025 End: 01-21-2025 ambulatory MILAGROS BROWN Facility:[id number] Start: 01-19-2025 End: 01-19-2025 ambulatory GARTH REZA Facility:[id number] Start: 01-18-2025 End: 01-18-2025 ambulatory JACINTA D TALAMPAS Facility:[facility] Start: 01-18-2025 End: 01-18-2025 ambulatory MICKI BLOCK Facility:[id number] Start: 01-15-2025 End: 01-15-2025 ambulatory JACINTA D TALAMPAS Facility:[facility] Start: 01-14-2025 End: 01-14-2025 ambulatory MICKI BLOCK Facility:[id number] Start: 01-11-2025 End: 01-11-2025 ambulatory MICKI BLOCK Facility:[id number] Start: 01-08-2025 End: 01-08-2025 ambulatory JACINTA D TALAMPAS Facility:[facility] Start: 01-08-2025 End: 01-08-2025 ambulatory MICKI BUTLER Facility:[id number] Start: 01-06-2025 End: 01-06-2025 ambulatory MICKI BUTLER Facility:[id number] Start: 01-05-2025 End: 01-05-2025 ambulatory JACINTA D TALAMPAS Facility:[facility] Start: 12-29-2024 End: 12-29-2024 ambulatory JACINTA D TALAMPAS Facility:[facility] Start: 12-28-2024 End: 12-28-2024 ambulatory SERENA A EDSONI Facility:[id number] Start: 12-25-2024 End: 12-25-2024 ambulatory JACINTA D ARLEENAMPRICARDO Facility:[facility] Start: 12-25-2024 End: 12-25-2024 ambulatory MICKI BUTLER Facility:[id number] Start: 12-24-2024 End: 12-24-2024 ambulatory SERENA A EDSONI Facility:[facility] Start: 12-23-2024 End: 12-23-2024 ambulatory Noecate Jackson [employer] Work Phone: [facility] [place] Comment on above: Lymphedema of left a rm (Primary Dx) Start: 12-21-2024 End: 12-21-2024 ambulatory Milagros Brown PT [facility] [place] Comment on above: Lymphedema of left a rm (Primary Dx) Start: 12-21-2024 End: 12-21-2024 ambulatory Treatment Rm 15 [facility] Work Phone: Hematology/Oncology Comment on above: Iron malabsorption ( HCC) (Primary Dx); Malignant neoplasm of left breast in female, estrogen receptor positive, unspecified site of breast (HCC); Anemia in stage 3b chronic kidney disease (HCC) Start: 12-18-2024 End: 12-18-2024 Patient encounter procedure David Armstrong MD Work Phone: Cardiology Comment on above: Coronary artery calc ification (Primary Dx); Palpitations; Primary hypertension Start: 12-18-2024 End: 12-18-2024 ambulatory Treatment Rm 18 [facility] Work Phone: Hematology/Oncology Comment on above: Iron malabsorption ( HCC) (Primary Dx); Anemia in stage 3b chronic kidney disease (HCC) Start: 12-17-2024 End: 12-17-2024 Telephone encounter Garth Reza MD Work Phone: Urology Comment on above: Surgery Start: 12-17-2024 End: 12-17-2024 ambulatory MICKI MARCELINO Facility:[facility] Start: 12-17-2024 End: 12-17-2024 Patient encounter procedure Micki Marcelino MD Work Phone: Plastic Surgery Comment on above: Lymphedema (Primary Dx); History of breast cancer; History of breast reconstruction Start: 12-16-2024 End: 12-16-2024 Patient encounter procedure Garth Reza MD Work Phone: Urology Comment on above: Urinary frequency (P rimary Dx); Recurrent UTI; Malignant neoplasm of lower-outer quadrant of left breast of female, estrogen receptor positive (HCC); 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) Start: 12-15-2024 End: 12-15-2024 ambulatory Treatment Rm 15 [facility] Work Phone: Hematology/Oncology Comment on above: Iron malabsorption ( HCC) (Primary Dx); Anemia in stage 3b chronic kidney disease (HCC); Malignant neoplasm of overlapping sites of left breast in female, estrogen receptor positive (HCC); 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 lymph node (HCC); Carcinoma of left breast metastatic to skin (HCC) Start: 12-14-2024 End: 12-14-[address] RD Work Phone: Endocrinology Comment on above: Medical Nutrition Th jaclyn (Type 2 diabetes) Start: 12-14-2024 End: 12-15-[address] Work Phone: Endocrinology Start: 12-12-2024 End: 12-14-2024 Refill Luis Alberto Raman APRN.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 Work Phone: Hematology/Oncology Comment on above: Med Change Request Start: 12-11-2024 End: 12-11-2024 ambulatory Treatment Rm 15 [facility] Work Phone: Hematology/Oncology Comment on above: Malignant neoplasm o f left breast in female, estrogen receptor positive, unspecified site of breast (HCC) (Primary Dx); Carcinoma of left breast metastatic to skin (HCC); Malignant neoplasm of lower-outer quadrant of left breast of female, estrogen receptor positive (HCC); 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 lymph node (HCC); Iron malabsorption (HCC); Anemia in stage 3b chronic kidney disease (HCC) Start: 12-10-2024 Non-patient / Non-visit Dr. Mendez Of [facility] Work Phone: Start: 12-10-2024 Registered Referred Paulo Elena A -Cat Scan [facility] Work Phone: Start: 12-10-2024 ambulatory Jacinta Rivas Facilit y:[facility] Start: 12-08-2024 End: 12-08-2024 ambulatory Noe Jackson [employer] Work Phone: [facility] [place] Comment on above: Lymphedema of left a rm (Primary Dx) Start: 12-04-2024 End: 12-08-2024 ambulatory Luis Alberto Raman APRN.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 Work Phone: Hematology/Oncology Comment on above: [employer] Start: 12-03-2024 End: 12-03-2024 Telephone encounter Serena Carrasco DO Work Phone: Hematology/Oncology Comment on above: Results; Follow Up Start: 12-03-2024 End: 12-03-2024 ambulatory Noe [place] [employer] Work Phone: [facility] [place] Comment on above: Lymphedema of left a rm (Primary Dx) Start: 12-01-2024 End: 12-01-2024 ambulatory Lab/Port [facility] Work Phone: Hematology/Oncology Comment on above: Anemia due to stage 3b chronic kidney disease (HCC) (Primary Dx) Start: 11-30-2024 End: 11-30-2024 Refill Serena Carrasco DO Work Phone: Hematology/Oncology Comment on above: Refill Request Start: 11-27-2024 End: 11-27-2024 ambulatory Lab/Port [facility] Work Phone: Hematology/Oncology Comment on above: Malignant neoplasm o f overlapping sites of left breast in female, estrogen receptor positive (HCC); 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 lymph node (HCC); Carcinoma of left breast metastatic to skin (HCC) Start: 11-23-2024 End: 11-25-2024 ambulatory JACINTA Can BACONAMPAS Facility:[facility] Comment on above: Form for travel insu talia upcoming bloodwork Start: 11-20-2024 End: 11-20-2024 E-mail encounter from caregiver Erica Kirkpatrick RN [facility] Radiology Start: 11-20-2024 End: 12-23-2024 Telephone encounter Luis Alberto Raman APRN.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 Work Phone: Hematology/Oncology Comment on above: avs 11/20 Start: 11-20-2024 End: 11-20-2024 Patient encounter procedure Luis Alberto Raman APRN.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 Work Phone: Hematology/Oncology Start: 11-20-2024 End: 11-20-2024 ambulatory Treatment Rm 16 [facility] Work Phone: Hematology/Oncology Comment on above: Hypokalemia (Primary Dx); Dehydration You are scheduled fo r a port placement at [facility] on Thursday 11/23 at 10:30 am Malignant neoplasm o f left breast in female, estrogen receptor positive, unspecified site of breast (HCC) (Primary Dx); Carcinoma of left breast metastatic to skin (HCC); 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 lymph node (HCC); Chemotherapy-induced cardiomyopathy (HCC); Lymphedema of left arm; Hypokalemia Start: 11-18-2024 Non-patient / Non-visit Dr. Sushila Minaya MD -[facility] Work Phone: Start: 11-18-2024 End: 11-18-2024 Telephone encounter Serena Carrasco DO Work Phone: Hematology/Oncology Comment on above: Follow Up Start: 11-17-2024 Non-patient / Non-visit Dr. Sushila Minaya MD [facility] Work Phone: Start: 11-16-2024 Non-patient / Non-visit Dr. Sushila Minaya MD [facility] Work Phone: Start: 11-15-2024 ambulatory Jacinta D Talampas Facilit y:[facility] Start: 11-15-2024 End: 11-18-2024 Evaluation and management of inpatient Dr. Meri Vu MD -Medical Surgical 3 Work Phone: Start: 11-13-2024 End: 11-13-2024 ambulatory JACINTA D TALAMPAS Facility:[facility] Start: 11-10-2024 End: 11-10-2024 ambulatory MINO BEARD Facility:[facility] Start: 11-09-2024 End: 11-09-2024 ambulatory MILAGROS BROWN Facility:[id number] Start: 11-09-2024 End: 11-09-2024 ambulatory Treatment Rm 15 [facility] Work Phone: Hematology/Oncology Comment on above: Malignant neoplasm o f left breast in female, estrogen receptor positive, unspecified site of breast (HCC) (Primary Dx); Carcinoma of left breast metastatic to skin (HCC); Malignant neoplasm of lower-outer quadrant of left breast of female, estrogen receptor positive (HCC); 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 lymph node (HCC) Start: 11-06-2024 End: 11-06-2024 Telephone encounter Daisy Titus APRN.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 Work Phone: Endocrinology Comment on above: Insurance Authorizat ion (Approval - tirzepatide (MOUNJARO) 2.5 mg/0.5 mL pen injector [[employer]]) Start: 11-06-2024 End: 11-06-2024 ambulatory Noe [place] [employer] Work Phone: [facility] Physical [facility] Comment on above: Lymphedema of left a rm (Primary Dx) Start: 11-05-2024 End: 11-05-2024 Refill Daisy Titus APRN.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 Work Phone: Endocrinology Start: 11-04-2024 End: 11-04-2024 ambulatory Noe [place] [employer] Work Phone: [facility] [employer] [facility] Comment on above: Lymphedema of left a rm (Primary Dx) Start: 11-02-2024 End: 11-02-2024 Patient encounter procedure Paulo WELLS -[employer] Work Phone: Start: 11-02-2024 End: 11-02-[address] Jacinta Rivas MD Work Phone: -[facility] Start: 10-30-2024 End: 10-30-2024 Office outpatient visit [...] (HCC) Start: 10-30-2024 End: 10-30-2024 ambulatory Noe [place] [employer] Work Phone: [employer] [place] Comment on above: Lymphedema of left a rm (Primary Dx) Start: 10-28-2024 End: 10-28-2024 ambulatory Noe [place] [employer] Work Phone: [employer] [place] Comment on above: Lymphedema of left a rm (Primary Dx) Start: 10-27-2024 End: 10-27-2024 [facility] Start: 10-26-2024 End: 10-26-2024 Patient encounter procedure Lisbet Pizano 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.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 Work Phone: Internal Medicine [place] Comment on above: Lymphedema of left a rm (Primary Dx); Urinary tract infection with hematuria, site unspecified; Renal insufficiency Start: 10-26-2024 End: 10-26-2024 ambulatory JACINTA [facility] COASTRICARDO Facility:[facility] Start: 10-26-2024 ambulatory SERENA CARRASCO Facility:[facility] Start: 10-26-2024 End: 10-26-2024 Subsequent hospital visit by physician [facility] Comment on above: Malignant neoplasm o f left breast in female, estrogen receptor positive, unspecified site of breast (HCC) [C50.912, Z17.0] Start: 10-22-2024 End: 10-22-2024 ambulatory Noe [place] [employer] Work Phone: [employer] [place] Comment on above: Lymphedema of left a rm (Primary Dx) Start: 10-21-2024 End: 10-21-2024 ambulatory Noe [place] [employer] Work Phone: [employer] [place] Comment on above: Lymphedema of left a rm (Primary Dx) Start: 10-15-2024 End: 10-15-2024 Patient encounter procedure Mino Beard APRN.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 Work Phone: Plastic Surgery Comment on above: History of breast re construction (Primary Dx); History of breast cancer; Lymphedema; Cellulitis of left upper limb Start: 10-15-2024 End: 10-15-2024 ambulatory MINO BEARD Facility:[facility] Start: 10-15-2024 End: 10-15-2024 ambulatory Noe [place] [employer] Work Phone: [facility] Physical [facility] Comment on above: Lymphedema of left a rm (Primary Dx) Start: 10-14-2024 End: 10-14-2024 Patient encounter procedure Daisy Titus 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.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 Work Phone: Endocrinology Comment on above: Diabetes mellitus tr eated with insulin (HCC) (Primary Dx) Start: 10-14-2024 End: 10-14-2024 ambulatory DAISY Huyen BURGOSOCE Facility:[facility] Start: 10-13-2024 End: 10-13-2024 Patient encounter procedure Lisbet Pizano 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.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 Work Phone: Internal Medicine [place] Comment on above: Urinary tract infect ion with hematuria, site unspecified (Primary Dx); Lymphedema of left arm; Cellulitis of left upper extremity Start: 10-13-2024 End: 10-13-2024 ambulatory JACINTA RIVAS Facility:[facility] Start: 10-13-2024 End: 10-13-2024 ambulatory Noe [place] [employer] Work Phone: [facility] Physical [facility] Comment on above: Lymphedema of left a rm (Primary Dx) Start: 10-12-2024 End: 10-13-2024 Telephone encounter Jacinta Rivas MD Work Phone: Internal Medicine [place] Comment on above: Results Start: 10-07-2024 End: 10-07-2024 ambulatory JACINTA RIVAS Facility:[facility] Start: 10-07-2024 End: 10-07-2024 Patient encounter procedure Tatianna Crook [facility] Work Phone: [facility] Comment on above: Type 2 diabetes yolanda itus without complication, unspecified whether content assistant insulin use (HCC) (Primary Dx) Start: 10-07-2024 End: 10-07-2024 Telemedicine consultation with patient Tatianna Ambreen [facility] Work Phone: [facility] Start: 10-07-2024 End: 10-07-2024 ambulatory JACINTA RIVAS Facility:[facility] Start: 10-07-2024 End: 10-07-2024 [facility] [place] Comment on above: Lymphedema of left a rm (Primary Dx) Start: 10-05-2024 End: 10-06-2024 Telephone encounter Micki Marcelino MD Work Phone: Plastic Surgery Start: 09-25-2024 End: 09-25-2024 Telephone encounter Cathy Burr APRN.FORM BLOCK MAKER Work Phone: Internal Medicine [place] Comment on above: Results Start: 09-24-2024 End: 09-28-2024 Telephone encounter Serena Carrasco DO Work Phone: Hematology/Oncology Comment on above: Orders; Appointment Start: 09-24-2024 End: 09-24-2024 ambulatory MICKI BUTLER Facility:[id number] Start: 09-24-2024 End: 09-24-2024 ambulatory Noe Renetta CORONADO Work Phone: [facility] Physical Therapy [place] Comment on above: Lymphedema of left a rm (Primary Dx) Start: 09-23-2024 End: 09-23-2024 Subsequent hospital visit by physician [facility] Comment on above: Acute renal insuffic iency [N28.9] Start: 09-23-2024 End: 10-15-2024 ambulatory NEL DAY Facility:[facility] Comment on above: IV drip Start: 09-23-2024 End: 11-23-2024 Follow-up encounter Nel Day APRN.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 Work Phone: Internal Medicine [place] Comment on above: Results Start: 09-22-2024 End: 09-22-2024 ambulatory NEL DAY Facility:[facility] Start: 09-22-2024 End: 09-22-2024 Office outpatient visit 15 minutes Nel Day 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.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 Work Phone: Internal Medicine [place] Comment on above: Urinary frequency (P rimary Dx); Renal insufficiency; Urinary tract infection with hematuria, site unspecified; Glucosuria; Type 2 diabetes mellitus without complication, with long-term current use of insulin (HCC) Start: 09-22-2024 End: 09-22-2024 Telephone encounter Jacinta Rivas MD Work Phone: Internal Medicine [place] Comment on above: Check urine for UTI Start: 09-22-2024 End: 09-22-2024 ambulatory Noe [place] [employer] Work Phone: [facility] Comment on above: Lymphedema of left a rm (Primary Dx) Start: 09-11-2024 End: 09-11-2024 ambulatory Noe [place] [employer] Work Phone: [facility] Comment on above: Lymphedema of left a rm (Primary Dx) Lymphedema (Primary Dx); History of breast cancer; S/P breast reconstruction Start: 09-10-2024 End: 09-10-2024 Follow-up encounter Cathy Burr APRN.FORM BLOCK MAKER Work Phone: Internal Medicine [place] Comment on above: Results; urine cultu re Start: 09-08-2024 End: 09-08-2024 ambulatory JACINTA RIVAS Facility:[facility] Start: 09-08-2024 End: 09-08-2024 Patient encounter procedure Tatianna Basurtoluz [facility] Work Phone: [facility] Comment on above: Type 2 diabetes yolanda itus without complication, unspecified whether jail insulin use (HCC) (Primary Dx) Start: 09-08-2024 End: 09-08-2024 Telemedicine consultation with patient Tatianna Ambreen [facility] Work Phone: [facility] Start: 09-07-2024 End: 09-07-2024 ambulatory JACINTA RIVAS Facility:[facility] Start: 09-07-2024 End: 09-07-2024 Office outpatient visit 15 minutes Cathy Burr APRN.FORM BLOCK MAKER Work Phone: Internal Medicine [place] Comment on above: UTI symptoms (Primar y Dx); Complicated UTI (urinary tract infection) Start: 09-03-2024 End: 09-03-2024 Chart abstracting Micki Marcelino MD Work Phone: Plastic Surgery Comment on above: PHOTOS TAKEN Start: 09-03-2024 End: 09-03-2024 Patient encounter procedure Micki Marcelino MD Work Phone: Plastic Surgery Comment on above: Lymphedema (Primary Dx) Start: 09-03-2024 End: 09-03-2024 ambulatory MICKI MARCELINO Facility:[facility] Start: 09-01-2024 End: 09-02-2024 Follow-up encounter Serena Carrasco DO Work Phone: Hematology/Oncology Start: 09-01-2024 End: 09-01-2024 ambulatory JACINTA RIVAS Facility:[facility] Start: 08-27-2024 End: 08-27-2024 ambulatory Milagros [facility] Comment on above: Lymphedema of left a rm (Primary Dx); History of breast cancer; S/P breast reconstruction; Seroma of breast Start: 08-11-2024 End: 08-11-2024 [facility] Start: 08-11-2024 End: 08-11-2024 Patient encounter procedure Tatianna Taborsukhjinder [facility] Work Phone: [facility] Comment on above: Type 2 diabetes yolanda itus without complication, unspecified whether jail insulin use (HCC) (Primary Dx) Start: 08-11-2024 End: 08-11-2024 Telemedicine consultation with patient Tatianna Crook [facility] Work Phone: [facility] Start: 08-10-2024 End: 08-10-2024 ambulatory Daisy Titus 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.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 Work Phone: Endocrinology Comment on above: Droplet pen needles Start: 08-04-2024 End: 08-04-2024 ambulatory JACINTA Can RIVAS Facility:[facility] Start: 08-03-2024 End: 08-03-[address] Andrea Peace MD -Laboratory Work Phone: Start: 08-03-2024 End: 08-03-2024 Patient encounter procedure Micki Butler 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.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 Work Phone: Plastic Surgery Comment on above: Post-operative state (Primary Dx); History of breast cancer; S/P breast reconstruction; Seroma of breast Start: 08-03-2024 End: 08-03-2024 ambulatory MICKI BUTLER Facility:[facility] Start: 08-03-2024 End: 08-03-2024 ambulatory Jacinta D [facility] Facility:[facility] Start: 07-16-2024 End: 09-15-2024 Follow-up encounter Cathy Burr APRN.FORM BLOCK MAKER Work Phone: Internal Medicine [place] Start: 07-15-2024 End: 07-15-2024 Patient encounter procedure Micki Butler 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.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 Work Phone: [facility] Comment on above: Seroma of breast (Pr imary Dx); Post-operative state Start: 07-15-2024 End: 07-16-2024 ambulatory JACINTA D [facility] Facility:[facility] Start: 07-14-2024 End: 07-14-2024 [facility] Facility:[facility] Start: 07-14-2024 End: 07-14-2024 Patient encounter procedure Tatianna Crook [facility] Work Phone: [facility] Comment on above: Type 2 diabetes yolanda itus without complication, unspecified whether jail insulin use (HCC) (Primary Dx) Start: 07-14-2024 End: 07-14-2024 Telemedicine consultation with patient Tatianna Crook [facility] Work Phone: [facility] Start: 07-10-2024 End: 07-13-2024 Telephone encounter Serena Carrasco DO Work Phone: Hematology/Oncology Comment on above: Results Start: 07-09-2024 End: 07-09-2024 ambulatory JACINTA D [facility] Facility:[facility] Start: 07-09-2024 End: 07-09-2024 Office outpatient visit [...] to medical condition Start: 07-08-2024 End: 07-08-2024 ambulatory JACINTA RIVAS Facility:[facility] Start: 07-08-2024 End: 07-08-2024 Subsequent hospital visit by physician [facility] [employer] [facility] Work Phone: Radiology Comment on above: Thyroid nodule [E04. 1] Start: 07-07-2024 End: 07-07-2024 Telephone encounter Serena Carrasco DO Work Phone: Hematology/Oncology Comment on above: Orders Start: 07-06-2024 End: 07-06-2024 Patient encounter procedure Micki Butler APRN.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 Work Phone: Plastic Surgery Comment on above: Seroma of breast (Pr imary Dx); Post-operative state Start: 07-06-2024 End: 07-06-2024 ambulatory MICKI ELIDA Facility:[facility] Start: 07-02-2024 End: 07-06-2024 ambulatory Michell David Work Phone: Hematology/Oncology Comment on above: Results on PET Scan Start: 06-30-2024 [facility] JACINTA RIVAS [facility] y:[facility] Start: 06-30-2024 End: 06-30-2024 Subsequent hospital visit by physician Injection [facility] PET CT Comment on above: Malignant neoplasm o f left breast in female, estrogen receptor positive, unspecified site of breast (HCC) [C50.912, Z17.0] Start: 06-26-2024 End: 06-26-2024 Refill Cathy Burr APRN.FORM BLOCK MAKER Work Phone: Internal Medicine [place] Comment on above: Med Change Request Start: 06-25-2024 End: 06-25-[address] [facility] Facility:[facility] Start: 06-25-2024 End: 06-25-2024 Patient encounter procedure Micki Marcelino MD Work Phone: Plastic Surgery Comment on above: Post-operative state (Primary Dx); History of breast cancer; S/P breast reconstruction; Seroma of breast Start: 06-23-2024 End: 08-24-2024 Follow-up encounter Cathy Burr APRN.FORM BLOCK MAKER Work Phone: Internal Medicine [place] Start: 06-16-2024 End: 06-16-2024 ambulatory JACINTA [place] [facility] Facility:[facility] Start: 06-16-2024 End: 06-16-2024 Patient encounter procedure Tatianna Crook [facility] Work Phone: [facility] Comment on above: Type 2 diabetes yolanda itus without complication, unspecified whether content assistant insulin use (HCC) (Primary Dx); Medication management Start: 06-16-2024 End: 06-16-2024 Telemedicine consultation with patient Tatianna Crook [facility] Work Phone: [facility] Start: 06-11-2024 End: 06-11-2024 Refill Serena Carrasco DO Work Phone: Hematology/Oncology Comment on above: Refill Request Post-operative state (Primary Dx); S/P breast reconstruction Start: 06-09-2024 End: 06-22-2024 Follow-up encounter Cathy Burr APRN.FORM BLOCK MAKER Work Phone: Internal Medicine [place] Start: 06-05-2024 End: 06-05-2024 [facility] Start: 06-05-2024 End: 06-05-2024 Office outpatient visit 25 minutes Cathy Burr APRN.FORM BLOCK MAKER Work Phone: Internal Medicine [place] Comment on above: Primary hypertension (Primary Dx) Start: 06-04-2024 End: 06-05-2024 ambulatory Tatianna Paneccao [facility] Work Phone: [facility] Start: 06-04-2024 End: 06-05-2024 Patient encounter procedure Mino Beard 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.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 Work Phone: Plastic Surgery Comment on above: Post-operative state (Primary Dx); S/P breast reconstruction; Seroma of breast HBP meds Start: 06-03-2024 End: 06-03-2024 ambulatory JACINTA Can [facility] Facility:[facility] Start: 05-29-2024 End: 05-29-2024 ambulatory JACINTA D [facility] Facility:[facility] Start: 05-29-2024 End: 05-29-2024 Patient encounter procedure Mino Beard 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.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 Work Phone: Plastic Surgery Comment on above: Post-operative state (Primary Dx); S/P breast reconstruction; Encounter for change or removal of drains Start: 05-27-2024 End: 05-27-2024 ambulatory ELIZ BINGHAM Facility:[facility] Start: 05-27-2024 End: 05-27-2024 Patient encounter procedure Eliz Bingham MD Work Phone: [facility] Comment on above: Malignant neoplasm o f lower-outer quadrant of left breast of female, estrogen receptor positive (HCC) (Primary Dx); 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); Axillary pain, left Start: 05-26-2024 End: 05-26-2024 Telephone encounter Cathy Burr APRN.FORM BLOCK MAKER Work Phone: Internal Medicine [place] Comment on above: Results Start: 05-26-2024 End: 07-15-2024 ambulatory Cathy Burr APRN.FORM BLOCK MAKER Work Phone: Internal Medicine [place] Start: 05-26-2024 End: 05-26-2024 Office outpatient visit 25 minutes Cathy Burr APRN.FORM BLOCK MAKER Work Phone: Internal Medicine [place] Comment on above: Primary hypertension (Primary Dx); Palpitations Start: 05-25-2024 End: 05-25-2024 ambulatory MINO BEARD Facility:[facility] Start: 05-25-2024 End: 05-25-2024 Patient encounter procedure Mino Beard 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.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 Work Phone: Plastic Surgery Comment on above: Post-operative state (Primary Dx); S/P breast reconstruction Start: 05-21-2024 End: 05-21-2024 ambulatory Jacinta Rivas MD Work Phone: Internal Medicine [place] Comment on above: Hypertension HBP medications Start: 05-21-2024 End: 05-21-2024 Patient encounter procedure Tatianna Crook [facility] Work Phone: [facility] Comment on above: HBP meds Start: 05-21-2024 End: 05-21-2024 Emergency department patient visit Jacinta Rivas Facility:[facility] Start: 05-20-2024 End: 05-20-2024 Refill Luis Alberto Raman 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.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 Work Phone: Hematology/Oncology Comment on above: Refill Request Start: 05-20-2024 End: 05-21-2024 Refill Luis Alberto Raman 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.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 Work Phone: Hematology/Oncology Comment on above: Refill Request Start: 05-19-2024 End: 05-19-2024 Telephone encounter Cayla Charles PA-C Work Phone: Breast Center Comment on above: Post Op Start: 05-18-2024 ambulatory MICKI MARCELINO Facility:[facility] Start: 05-18-2024 End: 05-18-2024 Subsequent hospital visit by physician Micki Marcelino MD Work Phone: Ambulatory Surgery Comment on above: Malignant neoplasm o f lower-outer quadrant of left breast of female, estrogen receptor positive (HCC) [C50.512, Z17.0] Start: 05-13-2024 End: 05-13-2024 ambulatory Bobbi Vanegas PT [facility] Physical [facility] Comment on above: Malignant neoplasm o f lower-outer quadrant of left breast of female, estrogen receptor positive (HCC) (Primary Dx); Lymphedema of left arm Start: 05-12-2024 End: 05-12-2024 Office outpatient visit 25 minutes Cathy Burr 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.FORM BLOCK MAKER Work Phone: Internal Medicine [place] Comment on above: Primary hypertension (Primary Dx); Acute cough; Sore throat Start: 05-12-2024 End: 05-12-2024 ambulatory CATHY BURR Facility:[facility] Start: 05-11-2024 End: 05-11-2024 ambulatory ELIZ BINGHAM Facility:[facility] Start: 05-11-2024 End: 05-11-2024 Nursing evaluation of patient and report Bianca Addison RN Breast Center Comment on above: Malignant neoplasm o f lower-outer quadrant of left breast of female, estrogen receptor positive (HCC) (Primary Dx); Encounter for education Start: 05-07-2024 End: 05-07-2024 ambulatory JACINTA RIVAS Facility:[facility] Start: 05-07-2024 End: 05-07-2024 Office outpatient visit 25 minutes Cathy Burr APRN.CNS Work Phone: Internal Medicine [place] Comment on above: Acute cough (Primary Dx); Primary hypertension; Sore throat Start: 05-06-2024 End: 05-06-2024 [facility] Comment on above: Malignant neoplasm o f lower-outer quadrant of left breast of female, estrogen receptor positive (HCC) (Primary Dx); Lymphedema of left arm Start: 05-05-2024 End: 05-05-2024 ambulatory JACINTA RIVAS Facility:[facility] Start: 05-05-2024 End: 05-05-2024 Patient encounter procedure Tatianna Crook [facility] Work Phone: [facility] Comment on above: Type 2 diabetes yolanda itus without complication, unspecified whether jail insulin use (HCC) (Primary Dx) Start: 05-05-2024 End: 05-05-2024 Telemedicine consultation with patient Tatianna Crook [facility] Work Phone: [facility] Start: 05-04-2024 End: 05-04-2024 Telephone encounter Serena Carrasco DO Work Phone: Pre Anesthesia Comment on above: Preparations For Mei edson (Follow-up) Start: 05-04-2024 End: 05-04-2024 Admission to establishment [facility] [place] [facility] Start: 05-04-2024 End: 05-04-2024 ambulatory JACINTA RIVAS Facility:[facility] Start: 05-04-2024 End: 05-04-2024 Anesthesia consultation [facility]esthesia Comment on above: Preop [...] Start: 05-04-2024 Encounter for other preprocedural examination MICKI MARCELINO [facility] Start: 05-04-2024 End: 05-04-2024 Preprocedural examination done [facility] Work Phone: Start: 04-28-2024 End: 04-28-2024 Subsequent hospital visit by physician [facility] Work Phone: Radiology Comment on above: Acute cough [R05.1] Start: 04-28-2024 End: 04-28-2024 ambulatory JACINTA RIVAS Facility:[facility] Start: 04-28-2024 End: 04-28-2024 Patient encounter procedure Carla Dagmar MOHAMUD Work Phone: [facility] Comment on above: Acute cough (Primary Dx); URI, acute Start: 04-28-2024 End: 04-28-2024 Telephone encounter Jacinta Rivas MD Work Phone: Internal Medicine [place] Comment on above: 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 Start: 04-24-2024 End: 04-24-2024 ambulatory Bobbi Orourke [facility] Physical Therapy Comment on above: Lymphedema of [...] Start: 04-15-2024 End: 04-15-2024 ambulatory DAISY TITUS Facility:[facility] Start: 04-15-2024 End: 04-15-2024 Patient encounter procedure Daisy Titus 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.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 Work Phone: Endocrinology Comment on above: Diabetes mellitus tr eated with insulin (HCC) (Primary Dx) Start: 04-13-2024 End: 04-14-2024 Telephone encounter Cayla Charles PA-C Work Phone: Breast Center Comment on above: Schedule Surgery Results Start: 04-13-2024 End: 04-13-2024 ambulatory Treatment Rm 15 [facility] Work Phone: Hematology/Oncology Comment on above: Malignant neoplasm o f left breast in female, estrogen receptor positive, unspecified site of breast (HCC) (Primary Dx) Start: 04-13-2024 End: 04-13-2024 Subsequent hospital visit by [facility] Comment on [...] cardiomyopathy (HCC) Start: 04-06-2024 ambulatory SERENA CARRASCO Facility:[facility] Start: 04-06-2024 End: 04-06-2024 Subsequent hospital visit by physician [facility] CT Comment on above: Malignant [...] hospital visit by physician Clinic Imaging [facility] Work Phone: Mammography Start: 03-25-2024 End: 03-25-2024 ambulatory JACINTA RIVAS Facility:[facility] Start: 03-25-2024 End: 03-25-2024 Patient encounter procedure [...] (HCC) (Primary Dx) Start: 03-24-2024 End: 03-24-2024 ambulatory Jacinta Rivas Facility:[facility] Start: 03-18-2024 End: 03-18-2024 [facility] Start: 03-18-2024 End: 03-18-2024 Office outpatient visit 25 minutes Jacinta Rivas MD Work Phone: Internal Medicine [place] Comment on above: Type 2 diabetes yolanda [...] Refill Start: 03-09-2024 End: 03-09-2024 Refill Serena Key Banksgracie COMBS Work Phone: Hematology/Oncology Comment on above: Refill Request Start: 02-27-2024 End: 02-27-2024 Orders Only Eliz Bingham MD Work Phone: Breast Center Comment on above: Malignant neoplasm o f lower-outer quadrant of left breast of female, estrogen receptor positive (HCC) (Primary Dx) 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; Appo intment Start: 02-26-2024 End: 02-26-2024 Telephone encounter Cayla Charles PA-C Work Phone: [facility] Comment on above: Appointment Start: 02-25-2024 End: 02-25-2024 ambulatory JACINTA RIVAS Facility:[facility] Start: 02-25-2024 End: 02-25-2024 Patient encounter procedure Tatiannajane Crook [facility] Work Phone: [facility] Comment on above: Type 2 diabetes yolanda itus without complication, unspecified whether content assistant insulin use (HCC) (Primary Dx) Start: 02-25-2024 End: 02-25-2024 Telemedicine consultation with patient Tatianna Ambreen [facility] Work Phone: [facility] Start: 02-24-2024 End: 02-26-2024 ambulatory Michell David Work Phone: Hematology/Oncology Comment on above: Recents scans Start: 02-18-2024 ambulatory JACINTA RIVAS Facilit y:[facility] Start: 02-18-2024 End: 02-18-2024 Subsequent hospital visit by physician Mri [facility] (I-Stat/1.5t) RADIO [facility] Comment on above: Malignant neoplasm o f lower-outer quadrant of left breast of female, estrogen receptor positive (HCC) [C50.512, Z17.0] Start: 02-05-2024 End: 02-05-2024 ambulatory DAISY Huyen STANFORDLakeshia Facility:[facility] Start: 02-05-2024 End: 02-05-2024 Patient encounter procedure Daisy Huyen Titus 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.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 Work Phone: Endocrinology Comment on above: Poorly control type 2 diabetes mellitus (HCC) (Primary Dx) Start: 02-03-2024 End: 02-03-2024 Refill Luis Alberto Raman 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.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 Work Phone: Hematology/Oncology Comment on above: Med Change Request Start: 01-22-2024 End: 01-24-2024 Refill Serena Carrasco DO Work Phone: Hematology/Oncology Comment on above: Refill Request Start: 01-13-2024 End: 01-13-2024 Office outpatient visit 15 minutes Adebayo Avila PA-C Work Phone: Orthopaedics Comment on above: Low back pain radiat ing to right leg (Primary Dx); Status post total replacement of right hip; Weakness of right hip; Trochanteric bursitis of right hip Start: 01-13-2024 ambulatory UNKNOWN PROVIDER Facili ty:[facility] Start: 01-13-2024 End: 01-13-2024 Subsequent hospital visit by physician [facility] Work Phone: Radiology Comment on above: Pain in right hip [M 25.551] Start: 01-07-2024 End: 01-07-2024 Patient encounter procedure Tatianna Basurtoluz [facility] Work Phone: [facility] Comment on above: Type 2 diabetes yolanda itus without complication, unspecified whether content assistant insulin use (HCC) (Primary Dx) Start: 01-07-2024 End: 01-07-2024 Telemedicine consultation with patient Tatianna Basurtoluz [facility] Work Phone: [facility] Start: 01-06-2024 End: 01-06-2024 Telephone encounter Bianca Addison RN Breast Center Comment on above: 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; 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 Start: 01-06-2024 End: 01-06-2024 ambulatory Serena Carrasco [...] (HCC); LAXMI (acute kidney injury) (HCC) Start: 01-06-2024 End: 01-06-2024 Patient encounter procedure Serena Carrasco DO Work Phone: Hematology/Oncology Start: 01-02-2024 End: 01-03-2024 Telephone encounter Adebayo Avila PA-C Work Phone: Orthopaedics Comment on above: Appointment Start: 12-30-2023 ambulatory SERENA CARRASCO [facility] Start: 12-30-2023 End: 12-30-2023 Subsequent hospital visit by physician [facility] Comment on above: 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) [C50.912, C79.2] Start: 12-27-2023 End: 12-30-2023 ambulatory Tatianna Crook [facility] Work Phone: [facility] Start: 12-27-2023 End: 12-30-2023 Patient encounter procedure Tatianna Crook [facility] Work Phone: [facility] Comment on above: Script Start: 12-11-2023 End: 12-12-2023 Refill Serena Carrasco DO Work Phone: Hematology/Oncology Comment on above: Refill Request Start: 12-02-2023 End: 12-02-2023 Patient encounter procedure Tatianna Crook [facility] Work Phone: [facility] Comment on above: Type 2 diabetes yolanda itus without complication, unspecified whether jail insulin use (HCC) (Primary Dx); Medication management Start: 12-02-2023 End: 12-02-2023 Telemedicine consultation with patient Tatianna Scottayah [facility] Work Phone: [facility] Start: 11-22-2023 ambulatory Serena Slaughter Work Phone: Hematology/Oncology Comment on above: Recent test Start: 11-19-2023 ambulatory SERENA CARRASCO Facility:[facility] Start: 11-19-2023 End: 11-19-2023 Subsequent hospital visit by [facility] Comment on above: Right upper quadrant pain [R10.11] Start: 11-13-2023 Telephone encounter Jacinta ambriz MD Work Phone: Internal Medicine [place] Comment on above: Order for Glucometer Start: [...] Lorazepam Start: 11-04-2023 Telephone encounter Lisbet govea 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.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 Work Phone: Internal Medicine [place] Comment on above: patient did follow u p urine sample Start: 10-30-2023 End: 10-30-2023 Patient encounter procedure Tatianna Basurtoluz [facility] Work Phone: [facility] Comment on above: Type 2 diabetes yolanda itus without complication, unspecified whether jail insulin use (HCC) (Primary Dx) Start: 10-30-2023 End: 10-30-2023 Telemedicine consultation with patient Tatianna Crook [facility] Work Phone: [facility] Start: 10-27-2023 ambulatory Serena North O Work Phone: Hematology/Oncology Comment on above: FYI Start: 10-23-2023 Telephone encounter Jacinta ambriz MD Work Phone: Internal Medicine [place] Comment on above: 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 Start: 10-23-2023 End: 10-23-2023 Patient encounter procedure Lisbet Pizano 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.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 Work Phone: Internal Medicine [place] Comment on above: Acute cystitis with hematuria (Primary Dx) Start: 10-18-2023 End: 10-18-2023 Patient encounter procedure Severino Rosalesjaney 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.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 Work Phone: [facility] Comment on above: Neck strain, initial encounter (Primary Dx) Start: 10-08-2023 End: 10-08-2023 Patient encounter procedure Tatianna Taobro [facility] Work Phone: [facility] Comment on above: Type 2 diabetes yolanda itus without complication, unspecified whether content assistant insulin use (HCC) (Primary Dx) Start: 10-08-2023 End: 10-08-2023 Telemedicine consultation with patient Tatianna Crook [facility] Work Phone: [facility] Start: 09-25-2023 Refill Serena North O Work Phone: Hematology/Oncology Comment on above: Refill Request Start: 09-23-2023 Refill Serena North O Work Phone: Hematology/Oncology Comment on above: Refill Request Start: 09-10-2023 Refill Michell David Work Phone: Hematology/Oncology Comment on above: Refill Request Lip wound Start: 09-05-2023 End: 09-05-2023 Patient encounter procedure Tatianna Paneccasio [facility] Work Phone: [facility] Comment on above: Type 2 diabetes yolanda itus without complication, unspecified whether content assistant insulin use (HCC) (Primary Dx) Start: 08-30-2023 ambulatory Tatianna escobar [facility] Work Phone: [facility] Start: 08-30-2023 Patient encounter procedure Tatianna Crook [facility] Work Phone: [facility] Comment on [...] [C50.512, Z17.0] Start: 08-13-2023 E-mail encounter narda m caregiver Tatianna Crook [facility] Work Phone: [facility] Start: 08-13-2023 End: 08-13-2023 Patient encounter procedure Tatianna Crook [facility] Work Phone: [facility] Comment on above: Type 2 diabetes yolanda itus without complication, unspecified whether jail insulin use (HCC) (Primary Dx) Ozempic Start: 08-13-2023 End: 08-13-2023 Telemedicine consultation with patient Tatianna Crook [facility] Work Phone: [facility] Start: 08-12-2023 Telephone encounter Serena burgos DO Work Phone: Hematology/Oncology Comment on above: Results Start: 08-12-2023 End: 08-12-2023 Subsequent hospital visit by physician Injection [facility] Start: 08-06-2023 Refill Michell David Work Phone: Hematology/Oncology Comment on above: Refill Request Start: 08-05-2023 End: 08-05-2023 ambulatory Serena A Masci DO Work Phone: Hematology/Oncology Comment on above: [...] End: 08-05-2023 Patient encounter procedure Serena Carrasco DO Work Phone: Hematology/Oncology Comment on above: Ozempic Start: 07-24-2023 Refill Michellchai David Work Phone: Hematology/Oncology Comment on above: Refill Request Start: 07-18-2023 ambulatory Jacinta huffman MD Work Phone: Internal Medicine [place] Comment on above: Diabetic tests strip s Start: 07-18-2023 End: 07-18-2023 Patient encounter procedure Tatianna Crook [facility] Work Phone: [facility] Comment on above: Type 2 diabetes yolanda itus without complication, unspecified whether jail insulin use (HCC) (Primary Dx) Start: 07-16-2023 End: 07-16-2023 Office outpatient visit 25 minutes Jacinta Rivas MD Work Phone: Internal Medicine [place] Comment on above: Newly diagnosed Unco ntrolled type 2 diabetes mellitus with hyperglycemia (HCC) (Primary Dx); Urinary tract infection without hematuria, site unspecified; Metastasis from breast cancer (HCC) Start: 07-15-2023 End: 07-15-2023 ambulatory Bobbi Orourke [facility] Physical Therapy Comment on above: Lymphedema of left a rm (Primary Dx); Malignant neoplasm of lower-outer quadrant of left breast of female, estrogen receptor positive (HCC); 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 lymph node (HCC); 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 Work Phone: Start: 07-08-2023 End: 07-08-2023 Patient encounter procedure Carla Forbes APRN.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 Work Phone: [place] [facility] Comment on above: Urinary frequency (P rimary [...] Start: 07-05-2023 End: 07-05-2023 Patient encounter procedure Michellchai Alemanight Work Phone: [facility] Start: 07-03-2023 Telephone encounter Serena burgos DO Work Phone: Hematology/Oncology Comment on above: Future Appointment Start: 06-03-2023 Telephone encounter Serena burgos DO Work Phone: Hematology/Oncology Comment on above: Follow Up Start: 05-31-2023 Orders Only Seerna Slaughter Work Phone: Hematology/Oncology Comment on above: Malignant neoplasm o f left breast in female, estrogen receptor positive, unspecified site of breast (HCC) (Primary Dx); 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); 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 lymph node (HCC) Start: 05-24-2023 Refill Michell David Work Phone: Hematology/Oncology Comment on above: Refill Request Start: 05-23-2023 ambulatory Luis Alberto snell APRN.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 Work Phone: Hematology/Oncology Comment on above: mouth wash Start: 05-17-2023 ambulatory Luis Alberto Santacruz r 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.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 Work Phone: Hematology/Oncology Comment on above: mouth [...] Start: 03-05-2023 End: 03-05-2023 ambulatory Injection [facility] Work Phone: Hematology/Oncology Comment on above: 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) (Primary Dx); Malignant neoplasm of lower-outer quadrant of left breast of female, estrogen receptor positive (HCC) ; 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) Start: 02-22-2023 Orders Only Myla batista Work Phone: Podiatry Comment on above: Arthritis of midfoot (Primary Dx) mobdago Start: 02-18-2023 End: 02-18-2023 ambulatory Myla Springer Work Phone: Podiatry Comment on above: Arthritis of midfoot (Primary Dx) Start: 02-18-2023 End: 02-18-2023 Telemedicine consultation with patient Myla Augustinmary Work Phone: [facility] MAURYPASO ROBLESAlexandria Start: 02-12-2023 ambulatory Myla batista Work Phone: Podiatry Comment on above: Meloxicam Start: 02-12-2023 Telephone encounter Jacinta ambriz MD Work Phone: Family Medicine [place] Comment on above: Consult Start: 2023 Orders Only Serena Slaughter Work Phone: Hematology/Oncology Comment on above: Malignant neoplasm o f lower-outer quadrant of left breast of female, estrogen receptor positive (HCC) (Primary Dx); 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); 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) Start: 01-29-2023 ambulatory Luis Alberto snell APRN.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 Work Phone: Hematology/Oncology Comment on above: PET Start: 01-28-2023 End: 01-28-2023 Subsequent hospital visit by physician Injection [facility] Comment on above: Malignant neoplasm o f left breast in female, estrogen receptor positive, unspecified site of breast (HCC) [C50.912, Z17.0] Start: 01-18-2023 Refill Jacinta huffman MD Work Phone: Internal Medicine [place] Comment on above: Refill Request Start: 01-09-2023 Telephone encounter Luis Alberto baires APRN.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 Work Phone: Hematology/Oncology Comment on above: AVS 01/09 Start: 01-08-2023 Telephone encounter Mino DOHERTY Hematology/Oncology Comment on above: Social Work Services Start: 12-27-2022 Telephone encounter Serena burgos DO Work Phone: Hematology/Oncology Comment on above: Results Start: 12-26-2022 End: 12-26-2022 ambulatory Treatment Rm 12 [facility] Work Phone: Hematology/Oncology Comment on above: [...] 12-17-2022 End: 12-17-2022 Patient encounter procedure Serena A Masci DO Work Phone: [facility] PATY Start: 12-17-2022 End: 12-17-2022 ambulatory Lab/Port [facility] Work Phone: Hematology/Oncology Comment on above: [...] Start: 12-13-2022 End: 12-13-2022 ambulatory Injection [facility] Work Phone: Hematology/Oncology Comment on above: 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) (Primary Dx); Malignant neoplasm of lower-outer quadrant of left breast of female, estrogen receptor positive (HCC); 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) Start: 12-03-2022 End: 12-03-2022 ambulatory Lab/Port [facility] Work Phone: Hematology/Oncology Comment on above: Malignant neoplasm o f lower-outer quadrant of left breast of female, estrogen receptor positive (HCC); Carcinoma of left breast metastatic to skin (HCC) Start: 11-28-2022 Telephone encounter Dena Lechuga RN He matology/Oncology Comment on above: 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-up ) Start: 11-15-2022 End: 11-15-2022 ambulatory Injection [facility] Work Phone: Hematology/Oncology Comment on above: 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) (Primary Dx); Malignant neoplasm of lower-outer quadrant of left breast of female, estrogen receptor positive (HCC); 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) Start: 11-14-2022 Orders Only Serena [place] O Work Phone: Hematology/Oncology Comment on above: Malignant neoplasm o f lower-outer quadrant of left breast of female, estrogen receptor positive (HCC) (Primary Dx); Carcinoma of left breast metastatic to skin (HCC); 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) Start: 11-07-2022 Telephone encounter Serena burgos DO Work Phone: Hematology/Oncology Comment on above: Patient Question Results Start: 11-07-2022 End: 11-07-2022 ambulatory Treatment Rm 11 [facility] Work Phone: Hematology/Oncology Comment on above: Dehydration (Primary Dx); Functional diarrhea Start: 11-06-2022 End: 11-06-2022 ambulatory Treatment Rm 6 [facility] Work Phone: Hematology/Oncology Comment on above: Dehydration (Primary Dx); Functional diarrhea Refill Request Start: 11-06-2022 Telephone encounter Serena burgos DO Work Phone: Hematology/Oncology Comment on above: Results Start: 11-05-2022 ambulatory [facility] Start: 11-05-2022 Patient encounter procedure [facility] Comment on above: SPP Oral [...] Start: 10-18-2022 End: 10-18-2022 ambulatory Injection [facility] Work Phone: Hematology/Oncology Comment on above: [...] End: 09-25-2022 ambulatory Treatment Rm 10 [facility] Work Phone: Hematology/Oncology Comment on above: 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); Functional diarrhea Start: 09-21-2022 Telephone encounter Serena burgos DO Work Phone: Hematology/Oncology Comment on above: Results; Future Appo intment Start: 09-21-2022 End: 09-21-2022 ambulatory Treatment Rm 4 [facility] Work Phone: Hematology/Oncology Comment on above: Functional diarrhea (Primary Dx) Start: 09-20-2022 Nursing evaluation o f patient and report Chantale Bundy RN Hematology/Oncology Comment on above: Examination of parti cipant in clinical trial (Primary Dx) 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) (Primary Dx) Start: 09-20-2022 End: 09-20-2022 Patient encounter procedure Serena Carrasco DO [facility] Start: 09-20-2022 Telephone encounter Serena burgos DO Work Phone: Hematology/Oncology Comment on above: Results (UA) Start: 09-20-2022 End: 09-20-2022 ambulatory Treatment Rm 12 [facility] Work Phone: Hematology/Oncology Comment on above: Functional diarrhea (Primary Dx) Start: 09-20-2022 End: 09-20-2022 ambulatory Injection [facility] Work Phone: Hematology/Oncology Comment on [...] Start: 09-06-2022 End: 09-06-2022 ambulatory Injection [facility] Work Phone: Hematology/Oncology Comment on above: [...] Telephone encounter Eliz lockwood MD Work Phone: [facility] Comment on above: Results Start: 08-17-2022 Telephone encounter Serena burgos DO Work Phone: Hematology/Oncology Comment on above: Refill Request Start: 08-16-2022 End: 08-16-2022 ambulatory Injection [facility] Work Phone: Hematology/Oncology Comment on above: 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) (Primary Dx); Malignant neoplasm of lower-outer quadrant of left breast of female, estrogen receptor positive (HCC); 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) Start: 08-16-2022 Patient encounter procedure Kenyon Lopes [facility] Comment on above: SPP Oral Oncology/he matology - Treatment Referral ([place]) Start: 08-16-2022 Telephone encounter Serena burgos DO Work Phone: Hematology/Oncology Comment on above: AVS 08/16/22; Quest[facility] n Start: 08-15-2022 End: 08-15-2022 Subsequent hospital visit by physician Mri [place] (1.5t/Lg Bore 70cm) Work Phone: [facility] Comment on above: Malignant neoplasm o f lower-outer quadrant of left breast of female, estrogen receptor positive (HCC) [C50.512, Z17.0] Start: 08-14-2022 End: 08-14-2022 ambulatory Kam Dangelo MD Work Phone: Pulmonology Comment on above: Results (Post bronch oscopy note) Start: 08-13-2022 Telephone encounter Cori Cox RN Pulmonary Medicine Comment on above: Appointment Start: 08-13-2022 End: 08-13-2022 ambulatory KAM DANGELO Facility:[facility] Start: 08-13-2022 End: 08-13-2022 Patient encounter procedure Kam Dangelo MD Work Phone: Pulmonology Comment on above: Adenopathy (Primary Dx); Carcinoma of left breast metastatic to skin (HCC); Primary biliary cirrhosis (HCC); Malignant neoplasm of lower-outer quadrant of left breast of female, estrogen receptor positive (HCC) Start: 08-09-2022 End: 08-09-2022 Admission to establishment [place] [id number] Work Phone: [facility] Start: 08-09-2022 End: 08-09-2022 [place] [id number] Work Phone: Pre Anesthesia Comment on above: Pre-op evaluation (P rimary Dx); Chemotherapy-induced neuropathy (HCC); Chemotherapy-induced cardiomyopathy (HCC); Primary biliary cirrhosis (HCC); Lumbar degenerative disc disease; Class 1 obesity due to excess calories with serious comorbidity and body mass index (BMI) of 32.0 to 32.9 in adult Start: 08-09-2022 End: 08-09-2022 Preprocedural examination done [place] [id number] Work Phone: Pre Anesthesia Start: 08-06-2022 ambulatory Kam amaya MD Work Phone: Pulmonology Comment on above: Bronchoscopy Schedul ing Start: 08-02-2022 End: 08-02-2022 Subsequent hospital visit by physician Mri [facility] ([facility]) [facility] Comment [...] encounter procedure Serena Carrasco DO Work Phone: [facility] [employer] Comment on above: Malignant neoplasm o f lower-outer quadrant of left breast of female, estrogen receptor positive (HCC) (Primary Dx) Start: 07-19-2022 End: 07-19-2022 Patient encounter procedure Eliz Bingham MD Work Phone: Breast Center Comment on above: Malignant neoplasm o f lower-outer quadrant of left breast of female, estrogen receptor positive (HCC) (Primary Dx) Start: 07-09-2022 End: 07-09-2022 ambulatory Treatment Rm 13 [facility] Work Phone: Hematology/Oncology Comment on above: Malignant neoplasm o f left breast in female, estrogen receptor positive, unspecified site of breast (HCC) (Primary Dx) Start: 07-04-2022 Nursing evaluation o f patient and report Chantale Bundy RN Hematology/Oncology Comment on above: Examination of parti cipant in clinical trial (Primary Dx) Start: 07-04-2022 End: 07-04-2022 Patient encounter procedure Serena Carrasco DO Work Phone: [facility] [facility] Start: 07-04-2022 Telephone encounter Bianca Addison RN [facility] Comment on above: Appointment (DR Shanna watts) Start: 07-04-2022 End: 03-29-2023 ambulatory Serena Carrasco DO Work Phone: Hematology/Oncology [...] Telephone encounter Jacinta ambriz MD Work Phone: [facility] Comment on above: Medication Request Start: 06-26-2022 Orders Only Wendy Madison [facility] HB-3 Comment on above: Abnormal ultrasound of breast (Primary Dx) Start: 06-25-2022 Refill Serena Slaughter Work Phone: Hematology/Oncology Comment on above: Refill Request Start: 06-01-2022 Documentation procedure Mammog abdirashid Coordinator [facility] Start: 06-01-2022 Letter encounter Mammography Coordinator [facility] Department Start: 05-25-2022 Refill Serena Slaughter Work Phone: Hematology/Oncology Comment on above: Refill Request Start: 04-26-2022 Telephone encounter Luis Alberto baires APRN.CNP Work Phone: Hematology/Oncology Comment on above: Results Start: 03-26-2022 End: 03-26-2022 Patient encounter procedure Adebayo Avila PA-C Work Phone: Orthopaedics Comment on above: It band syndrome, ri ght (Primary Dx); Status post total replacement of right hip; Primary osteoarthritis of right knee Start: 03-26-2022 End: 03-26-2022 Subsequent hospital visit by physician Radio General Veronica Lee Work Phone: Radiology Comment on above: Right hip pain [M25. 551] Start: 03-25-2022 Refill Myla batista Work Phone: Podiatry Comment on above: Refill Request Start: 03-20-2022 ambulatory Jacinta huffman MD Work Phone: Internal Medicine [place] Comment on above: CTA Abdomen and Pelv is Start: 03-20-2022 E-mail encounter fro m caregiver Jacinta Rivas MD Work Phone: [facility] Start: 02-23-2022 Telephone encounter Luis Alberto baires APRN.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 Work Phone: Hematology/Oncology Comment on above: Patient Question Start: 02-19-2022 End: 02-19-2022 Patient encounter status Jacinta Rivas MD Work Phone: Internal [facility] [place] Start: 02-19-2022 End: 02-19-2022 Periodic preventive med est patient 40-64yrs Jacinta Rivas MD Work Phone: Internal Medicine [place] Comment on above: Routine medical exam (Primary Dx); Elevated glucose; Acute cystitis without hematuria; Encounter for immunization Start: 02-07-2022 Telephone encounter Brent watts APRN.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 Work Phone: [facility] Comment on above: Results Start: 02-05-2022 End: 02-05-2022 Patient encounter procedure Victoria Duarte APRN.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 Work Phone: [facility] Comment on above: Frequent urination ( Primary Dx) Start: 01-25-2022 Orders Only Myla batista Work Phone: Podiatry Start: 01-22-2022 End: 01-22-2022 ambulatory Treatment Rm 13 [facility] Work Phone: Hematology/Oncology Comment on above: Malignant neoplasm o f left breast in female, estrogen receptor positive, unspecified site of breast (HCC) (Primary Dx) Start: 11-30-2021 End: 11-30-[address] [facility] Work Phone: Start: 11-30-2021 End: 11-30-2021 Patient encounter procedure [facility]-Radiology, [facility] Start: 10-11-2021 End: 10-11-2021 Patient encounter procedure Eliz Bingham MD Work Phone: Breast Center Comment on above: Malignant neoplasm o f lower-outer quadrant of left breast of female, estrogen receptor positive (HCC) (Primary Dx) Start: 09-08-2021 ambulatory Jacinta huffman MD Work Phone: Internal Medicine [place] Comment on above: Paxlovid information Start: 09-08-2021 E-mail encounter fro m caregiver Jacinta Rivas MD Work Phone: [facility] Start: 09-08-2021 Telephone encounter Jacinta ambriz MD Work Phone: Family Medicine [place] Comment on above: Covid19 Concern Start: 09-07-2021 ambulatory Jacinta huffman MD Work Phone: Internal Medicine [place] Comment on above: Tested positive Start: 08-14-2021 Refill Myla Pooja batista Work Phone: Podiatry Comment on above: Refill Request Start: 08-09-2021 End: 08-09-[address] Work Phone: [facility] Start: 08-09-2021 End: 08-09-2021 Nutrition therapy Serenity Godwin RD Work Phone: Radiation Oncology Comment on above: Nutrition Assessment Start: 08-07-2021 End: 08-07-2021 ambulatory Treatment Rm 7 [facility] Work Phone: Hematology/Oncology Comment on above: Malignant neoplasm o f left breast in female, estrogen receptor positive, unspecified site of breast (HCC) (Primary Dx) Start: 08-02-2021 Nursing evaluation o f patient and report Chantale Bundy RN Hematology/Oncology Comment on above: Examination of parti cipant in clinical trial (Primary Dx) Start: 08-02-2021 End: 08-02-2021 Patient encounter procedure Serena Carrasco DO Work Phone: [facility] Start: 08-02-2021 End: 08-02-2021 ambulatory Serena [...] 02-13-2021 Subsequent hospital visit by physician [facility] Work Phone: Radiology Comment on above: Cough [R05.9] Start: 01-03-2021 End: 01-03-2021 Subsequent hospital visit by physician [facility] Work Phone: Radiology Comment on above: Cough [R05] Start: 01-27-2018 Patient encounter procedure Serena Carrasco DO Work Phone: [facility] Work Phone: Start: 03-22-2017 End: 03-22-2017 Annotation/Addendum Mindi Paredes Farm Assistant al Medicine Start: 03-14-2017 End: 03-14-2017 Office outpatient visit 25 minutes Mindi Paredes Internal Medicine Start: 02-11-2017 End: 02-11-2017 Periodic preventive med est patient 40-64yrs Mindi Paredes Internal Medicine Start: 07-28-2015 End: 07-28-2015 Office outpatient visit 25 minutes Mindi Paredes Internal Medicine Start: 07-18-2015 End: 07-18-2015 Office outpatient visit 25 minutes Mindi Paredes Internal Medicine Start: 07-11-2015 End: 07-11-2015 Office outpatient visit 25 minutes Mindi Paredes Internal Medicine Start: 06-13-2015 End: 06-13-2015 Office outpatient visit 15 minutes Mindi Paredes Internal Medicine Start: 10-18-2014 End: 10-18-2014 Office outpatient visit 25 minutes Mindi Paredes Internal Medicine Start: 07-19-2014 End: 07-19-2014 Annotation/Addendum Mindi Paredes Farm Assistant al Medicine Start: 07-16-2014 End: 07-16-2014 Office outpatient visit 15 minutes Mindi Paredes Internal Medicine Start: 07-02-2014 End: 07-02-2014 Office outpatient visit 15 minutes Mindi Paredes Internal Medicine Start: 03-19-2014 End: 03-19-2014 Office outpatient visit 25 minutes Mindi Paredes Internal Medicine Start: 03-02-2014 End: 03-02-2014 Phone Encounter Mindi Brownjovanna Paredes Farm Assistant al Medicine Start: 11-30-2013 End: 11-30-2013 Periodic preventive med est patient 40-64yrs Mindi Paredes Internal Medicine Start: 11-18-2013 End: 11-18-2013 Annotation/Addendum Mindi Dasilva [email or web address] Farm Assistant al Medicine Start: 11-18-2013 End: 11-18-2013 Office outpatient visit 25 minutes Mindi Dasilva [facility] [[email or web address]] Internal Medicine Start: 11-02-2013 End: 11-02-2013 Office outpatient visit 25 minutes Mindi Dasilva [facility] [[email or web address] Internal Medicine Start: 10-19-2013 End: 10-19-2013 Annotation/Addendum Mindi Dasilva [facility] [[email or web address]] Farm Assistant al Medicine Start: 10-14-2013 End: 10-14-2013 Office outpatient visit 25 minutes Mindi Dasilva [facility] [[email or web address]] Internal Medicine Start: 01-15-2013 End: 01-15-2013 Patient encounter procedure Mindi Dasilva [facility] [[email or web address]] Internal Medicine Start: 10-11-2011 End: 10-11-2011 Patient encounter procedure Mindi Dasilva [facility] [[email or web address] Internal Medicine Start: 08-29-2011 End: 08-29-2011 Patient encounter procedure Mindi Dasilva [facility] [[email or web address]] Internal Medicine Start: 08-01-2011 End: 08-01-2011 Patient encounter procedure Mindi Paredes Internal Medicine Start: 11-10-2010 End: 11-10-2010 Patient encounter procedure Mindi Dasilva [facility] [[email or web address]] Internal Medicine Start: 10-10-2010 End: 10-10-2010 Patient encounter procedure Mindi Dasilva [facility] [[email or web address] Internal Medicine Start: 04-21-2010 End: 04-21-2010 Patient encounter procedure Mindi Dasilva [facility] [[email or web address] Internal Medicine Start: 04-17-2010 End: 04-17-2010 Patient encounter procedure Mindi Dasilva [facility] [[email or web address]] Internal Medicine Start: 09-19-2009 End: 09-19-2009 Patient encounter procedure Mindi Dasilva [email or web address] Internal Medicine Start: 09-09-2009 End: 09-09-2009 Patient encounter procedure Mindi Dasilva [facility] [[email or web address] Internal Medicine Start: 01-28-2009 End: 01-28-2009 Patient encounter procedure Mindi Dasilva [facility] [[email or web address] Internal Medicine Start: 05-11-2008 End: 05-11-2008 Office outpatient visit 15 minutes Mindi Dasilva [facility] [[email or web address]] Internal Medicine Start: 09-04-2007 End: 09-04-2007 Patient encounter procedure Mindi Dasilva [facility] [[email or web address] Internal Medicine Start: 03-07-2007 End: 03-07-2007 Office outpatient visit 40 minutes Mindi Dasilva [facility] [[email or web address] Internal Medicine Start: 09-04-2006 End: 09-04-2006 Office outpatient visit 10 minutes Mindi Dasilva [facility] [[email or web address] Internal Medicine Start: 07-18-2006 End: 07-18-2006 Patient encounter procedure Mindi Dasilva [facility] [[email or web address] Internal Medicine Start: 06-27-2006 End: 06-27-2006 Office outpatient visit 25 minutes Mindi Dasilva [facility] [[email or web address] Internal Medicine Start: 06-24-2006 End: 06-24-2006 Historical Summary Mindi Dasilva [facility] [[email or web address]] Farm Assistant al Medicine Start: 06-20-2006 End: 06-20-2006 Refill Request Mindi Dasilva [facility] [[email or web address]] Farm Assistant al Medicine Procedures Date Procedure Procedure Detail Performing Clinician Start: 12-21-2024 Blood count complete auto&auto difrntl wbc Luis Alberto Raman 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.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 Work Phone: Start: 12-16-2024 Urnls dip stick/tablet rgnt auto w/o microscopy [facility] Provider Start: 12-16-2024 BLADDER SCAN Garth Reza MD Work Phone: Start: 12-15-2024 Culture bacterial quanttative colony count urine Cathy Burr 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.FORM BLOCK MAKER Work Phone: Start: 12-15-2024 Urnls dip stick/tablet rgnt auto w/o microscopy Cathy Burr 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.FORM BLOCK MAKER Work Phone: Start: 12-15-2024 Blood count complete auto&auto difrntl wbc Serena Carrsaco DO Work Phone: Start: 12-10-2024 CT angiography of coronary arteries Dr. Jacinta Rivas MD Work Phone: Start: 12-01-2024 Assay of ferritin Serena Carrasco DO Work Phone: Start: 11-27-2024 Blood count complete auto&auto difrntl wbc Serena A Masci DO Work Phone: Start: 11-23-2024 IR MELVA Raman 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.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 Work Phone: Start: 11-18-[address] Jacinta Rivas MD Work Phone: Start: 11-18-[address] Jacinta Rivas MD Work Phone: Start: 11-17-[address] Jacinta Rivas MD Work Phone: Comment on above: Performed at: [facility] [address] [id number] Director: Ney Echeverria PhD, Phone: [phone] Start: 11-17-[address] Jacinta Rivas MD Work Phone: Comment on above: The atypical pANCA pattern has been obse rved in asignificant percentage of patients with ulcerative colitis,primary sclerosing cholangitis and autoimmune hepatitis.Performed at: [facility] [address] [id number] Director: Ney Echeverria PhD, Phone: [phone] Start: 11-17-2024 Antibody to centromere measurement Dr. Jacinta Rivas MD Work Phone: Comment on above: Test not performed Start: 11-17-2024 Antibody to extractable nuclear antigen measurement Dr. Jacinta Rivas MD Work Phone: Comment on above: Test not performed Start: 11-17-2024 Antibody to NONA-[address] Jacinta Rivas MD Work Phone: Comment on above: Test not performed Start: 11-17-2024 Antibody to lupus La protein measurement Dr. Jacinta Rivas MD Work Phone: Comment on above: Test not performed Start: 11-17-2024 Antibody to SS-A measurement Dr. Jacinta Rivas MD Work Phone: Comment on above: Test not performed Start: 11-17-[address] Jacinta Rivas MD Work Phone: Comment on above: Test not performed Start: 11-17-2024 FIRER WATERTENDER antibody measurement Dr. Jacinta Rivas MD Work Phone: Comment on above: Test not performed Start: 11-17-2024 Complete ultrasound of kidneys and bladder Dr. Jacinta Rivas MD Work Phone: Start: 11-17-2024 Measurement of occult blood in stool specimen using immunoassay Dr. Jacinta Rivas MD Work Phone: Start: 11-17-2024 Chloride measurement, urine Dr. Jacinta Rivas MD Work Phone: Start: 11-17-2024 Serum inorganic phosphate measurement Dr. Jacinta Rivas MD Work Phone: Start: 11-17-2024 Total iron binding capacity measurement Dr. Jacinta Rivas MD Work Phone: Start: 11-15-2024 Urnls dip stick/tablet reagent auto microscopy Dr. Jacinta Rivas MD Work Phone: Start: 11-15-[address] Jacinta Rivas MD Work Phone: Start: 11-15-[address] Jacinta Rivas MD Work Phone: Start: 11-15-2024 SARS-CoV-2, Influenza & RSV (PCR) Dr. Jacinta Rivas MD Work Phone: Start: 11-15-[address] Jacinta Rivas MD Work Phone: Start: 10-26-2024 Urnls dip stick/tablet rgnt auto w/o microscopy Lisbet Pizano APRN.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 Work Phone: Start: 10-26-[address] attenuation skull base mid-thigh Serena Carrasco DO Work Phone: Start: 10-26-2024 Gluc bld gluc mntr dev cleared fda spec home use [facility] Provider Start: 09-23-2024 Us retroperitoneal real time w/image complete Nel Charlie Barb 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.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 Work Phone: Start: 09-22-2024 Urnls dip stick/tablet reagent auto microscopy Nel Arellanor 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.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 Work Phone: Start: 09-22-2024 Urnls dip stick/tablet rgnt auto w/o microscopy Nel Charlie Barb 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.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 Work Phone: Start: 09-07-2024 Urnls dip stick/tablet rgnt auto w/o microscopy Cathygracie Burr 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.FORM BLOCK MAKER Work Phone: Start: 06-30-2024 Gluc bld gluc [...] 05-07-2024 STREP A MOLECULAR (POC) Cathy Burr 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.FORM BLOCK MAKER Work Phone: Start: 04-28-2024 Radiologic exam chest 2 views Carla Forbes 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.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 Work Phone: Start: 04-28-2024 INFLUENZA A&B MOLECULAR [...] Radex hip unilateral with pelvis 2-3 views Adebayo Avlia PA-C Work Phone: Start: 12-30-[address] attenuation skull base mid-thigh Serena Mackey Masci DO Work Phone: Start: 12-30-2023 Gluc bld gluc mntr dev cleared fda spec home use [facility] Provider Start: 10-23-2023 Urnls dip stick/tablet rgnt auto w/o microscopy Lisbet Pizano 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.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 Work Phone: Start: 07-16-2023 Hemoglobin A1c/Hemoglobin.total in Blood Jacinta Rivas MD Work Phone: Start: 07-08-2023 Gluc bld gluc mntr dev cleared fda spec home use Carla Forbes 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.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 Work Phone: Start: 07-08-2023 Urnls dip stick/tablet rgnt auto w/o microscopy Carla Forbes 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.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 Work Phone: Start: 01-28-[address] attenuation skull base mid-thigh Luis Alberto Raman 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.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 Work Phone: Start: 09-20-2022 Urnls dip stick/tablet reagent auto microscopy Serena Banksi DO Work Phone: Start: 08-15-2022 Mri breast without&with contrast w/cad bilateral Eliz Bingham MD Work Phone: Start: 05-31-2022 Mammography Mammography Coordinator Start: 03-26-2022 Radiologic examination pelvis 1/2 views Adebayo Avila PA-C Work Phone: Start: 02-19-2022 Hemoglobin A1c/Hemoglobin.total in Blood Jacinta Rivas MD Work Phone: Start: 02-19-2022 INFLUENZA VACCINE QUADRIVALENT 6 MO - 64 YRS IM Jacinta Rivas MD Work Phone: Start: 02-19-2022 Urnls dip stick/tablet rgnt auto w/o microscopy Jacinta Rivas MD Work Phone: Start: 02-05-2022 Urnls dip stick/tablet rgnt auto w/o microscopy Paige Pepe 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.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 Work Phone: Start: 11-30-2021 Radiography of esophagus Start: 11-30-2021 Ultrasound elastography Start: 11-30-2021 Ultrasonography of abdomen Start: 07-31-2021 Adult depression screening assessment Serena Carrasco DO Work Phone: Start: 02-13-2021 Radiologic exam chest 2 views Jacinta Rivas MD Work Phone: Start: 01-03-2021 Radiologic exam chest 2 views Paige Pepe 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.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 Work Phone: Start: 02-26-2019 Mammography Serena Carrasco DO Work Phone: Start: 10-07-2018 Lipid 1996 panel - Serum or Plasma Serena Carrasco DO Work Phone: Start: 08-13-2018 History of radiation therapy History of radiation therapy Serena Carrasco DO Work Phone: Start: 05-01-2017 End: 05-01-2017 12 lead ECG Comments: See Note; NOTES: [facility] Cardiovascular Services [address] [place] [address] 12 Lead EKG 04/24/17 1044 MR#: [id number] Acct: [id number] Name: PAT SORTO Rep #: [id number] : 1960 57 From: Serena Callaway MD Attending Dr: Adebayo Silverio MD Status: DEP [facility] Ordering Dr: Adebayo Silverio MD Date: 04/24/17 Location: [facility] Sex: F C [...] wave progression Confirmed by SID NARAYAN, SERENA ([id number]), publication editor TATE HAQUE ([id number]) on 05/01/2017 12:04:39 PM Referred By: Adebayo Silverio Confirmed By:SERENA CALLAWAY MD 05/01/17 1204 Date Serena Callaway MD CC: Mindi Dasilva DO; Adebayo Silverio MD Signed Mindi Dasilva Start: 04-26-2017 End: 04-26-2017 Discharge Instruction Comments: See Note; NOTES: [facility] Medical Records Department [address] [place] [address] Instructions for Home/Discharge Instructions 04/24/17 1243 MR#: [id number] Acct: [id number] Name: PAT SORTO Rep #: [id number] : 1960 57 From: Adebayo Silverio MD PCP: Mindi Dasilva DO Status: DEP [facility] Discharge Diet: Light [...] mg PO TUSA 04/23/17 Hydrocodone Bitart/Apap 5-325 [[place] 5MG-325MG] 1 tablet PO Q6H PRN PRN #10 tablet 04/24/17 The following prescriptions were given: Hydrocodone Bitart/Apap 5-325 [[place] 5MG-325MG] 1 tablet PO Q6H PRN PRN #10 tablet PRN Reason: Pain Primary Care Physician: Mindi Dasilva DO [Primary Care Provider] - Please Follow Up With: Adebayo Silverio MD - [phone] When: Call to make an appointment to be seen in about 10 days. 04/26/17 0617 <Electronically signed by Adebayo Silverio MD> Date Adebayo Silverio MD CC: Mindi Callejas Start: 04-26-2017 End: 04-26-2017 Operative Report Comments: See Note; NOTES: [facility] Medical Records Department [address] [facility] [address] [place] [address] Operative Report 04/24/17 1323 MR#: [id number] Acct: [id number] Name: PAT SORTO Rep #: [id number] : 1960 57 From: Adebayo Silverio MD PCP: Mindi Dasilva DO Status: [facility] Y Location: [facility] Problem List (1) [...] Same Surgery/Procedure Performed:: Right internal jugular 6 [place] PowerPort placement Description of Surgical Findings:: Right internal jugular 6 [place] PowerPort placement Timeout and informed consent was [...] minimal. Stat portable chest x-ray is pending Adebayo Silverio M.D., F.A.C.S. Type of Anesthesia:: Local MAC Anesthesiologist: Oskar Hernandez 04/26/17 0617 <Electronically signed by Adebayo Silverio MD> Date Adebayo Silverio MD CC: Mindi Dasilva DO; Adebayo Silverio MD Signed Mindi Dasilva Start: 04-24-2017 End: 04-24-2017 Chest 1 View (Portable) Comments: See Note; NOTES: [facility] Imaging Services [address] [place] [address] Chest 1 View (Portable) MR#: [id number] Acct: [id number] Name: PAT SORTO Rep #: [id number] : 1960 F 57 From: Wil Arora MD PCP: Mindi Dasilva DO Status: [facility] Study: Chest 1 View (Portable) Date of Exam: 04/24/17 Exam# [id number] Ordering Dr: Adebayo Silverio MD STUDY: X-RAY CHEST REASON FOR [...] Wil Arora MD at 14:30 EST Tel [phone], Service support , CC: Mindi Dasilva DO; Adebayo Silverio MD Tape Rules Printing Machine Operator: Signed Mindi Brown Start: 04-19-2017 End: 04-19-2017 Surgery Visit Report Comments: See Note; NOTES: [address] [place] [address] OFFICE VISIT Date of Service: 04/19/17 MR#: [id number] Acct: [id number] Name: PAT SORTO Rep #: [id number] : 1960 Provider: Adebayo Silverio MD Age/Sex: 57/F Location: [facility] Status: Signed Intake Intake Visit Reasons: Left axillary Lymph node biopsy, discuss surgery Branch Officer Required: No Is patient in pain?: No [...] mg PO ONCE 04/04/17 [History Confirmed 04/09/17] PFSH Medical History Breast cancer (Acute) Abnormal mammogram [...] most recent office charting reflects the following [facility] Medical History Abnormal mammogram of left breast [...] Plan Today was approximately a 40 minute gaep-vi-tjoi consultative appointment regarding these findings. Admittedly the [...] wants to pursue definitive treatment here at [place]. I offered her any of the 4 local rn case manager oncologist. She is aware that you are associated with [facility] and 2 are associated with [facility]. The patient is leaning toward wanting care Via [facility] physicians. For that reason I have strongly recommended to her that we obtain the MRI through [facility]. As noted on her previous evaluation [...] Bilat Today C50.919 04/09/17 1636<Electronically signed by Adebayo Silverio MD> Date Adebayo Matson It is of note that although [...] comment that she was considering referral to [facility] specialty breast center. It is for that reason that we obtain the MRI in [place]. The results suggest that the 2 lesions [...] referral to Dr. Serena Carrasco Office Procedures [id number] Biopsy of Lymph Node Performed By: Procedure [...] Orders Orders: 04/19/17 1556 <Electronically signed by Adebayo Silverio MD> Date Adebayo Silverio MD Cosigner Signature: Date (if applicable) CC: Mindi Dasilva DO; Serena Callejas Start: 04-09-2017 End: 04-09-2017 Surgery Visit Report Comments: See Note; NOTES: [place] [address] OFFICE VISIT Date of Service: 04/09/17 MR#: [id number] Acct: [id number] Name: PAT SORTO Rep #: [id number] : 1960 Provider: Adebayo Silverio MD Age/Sex: 57/F Location: [facility] Status: Signed Intake Intake Visit Reasons: breast path Branch Officer Required: No Is patient in pain?: No [...] mg PO ONCE 04/04/17 [History Confirmed 04/09/17] PFSH Medical History Abnormal mammogram of left breast [...] Plan Today was approximately a 40 minute [id number]-[id number] consultative appointment regarding these findings. Admittedly the [...] wants to pursue definitive treatment here at [place]. I offered her any of the 4 local rn case manager oncologist. She is aware that you are associated with [facility] and 2 are associated with [facility]. The patient is leaning toward wanting care Via [facility] physicians. For that reason I have strongly recommended to her that we obtain the MRI through [facility]. As noted on her previous evaluation [...] Orders Orders: 04/09/17 1636 <Electronically signed by Adebayo Silverio MD> Date Adebayo Ricardo Signature: Date (if applicable) CC: Mindi Callejas Start: 04-04-2017 End: 04-04-2017 Orthopedic Visit Report Comments: See Note; NOTES: [facility] Orthopaedics AND Sports Medicine [address] [place] [address] OFFICE VISIT Date of Service: 04/04/17 MR#: [id number] Acct: [id number] Name: PAT SORTO Rep #: [id number] : 1960 Provider: Palma Carter DO Age/Sex: 57/F [place] [facility] [place]: Signed Intake Vital Signs04/04/17 Height 5 [...] mg PO ONCE 04/04/17 [History Confirmed 04/04/17] PFSH Medical History Abnormal mammogram of left breast [...] Views with Pelvis Comments: See Note; NOTES: [facility] Imaging Services [address] [place] [address] Hip 2-3 Views with Pelvis MR#: [id number] Acct: [id number] Name: PAT SORTO Rep #: [id number] : 1960 F 57 From: Alan Eason MD PCP: Mindi Dasilva DO Status: REG CLI Study: Hip 2-3 Views with Pelvis Date of Exam: 04/04/17 Exam# [id number] Ordering Dr: Palma Carter DO STUDY: X-RAY [...] CC: Palma Carter DO; Mindi Dasilva DO Tape Rules Printing Machine Operator: Signed Mindi Dasilva Start: 03-29-2017 End: 03-29-2017 Surgery Visit Report Comments: See Note; NOTES: [facility] [address] [place] [address] OFFICE VISIT Date of Service: 03/29/17 MR#: [id number] Acct: [id number] Name: PAT SORTO Rep #: [id number] : 1960 Provider: Adebayo Silverio MD Age/Sex: 57/F Location: [facility] Status: Signed Intake Vital Signs03/29/17 Height 5 ft 7 in 03/29/17 Weight: 190 lb 1 oz Intake Visit Reasons: Positive Ultrasound Birads 5 03/21 [facility] Chief Complaint: left breast birads 5 Branch Officer Required: No Is patient in pain?: No [...] PO QDAY ea 03/29/17 [History Confirmed 03/29/17] [facility] Medical History Abnormal mammogram of left breast [...] son was at the same grade as Steve and he has graduated from the [employer]. 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 7-year-old female. A0. Menarche at age 13. First child was born when she was 30. In [address] Ford Avila to [facility]. By her report she had an excisional left breast biopsy. She has multiple hemostatic clips in the left breast. She states that that was benign. 2 years ago for routine life insurance screening she had laboratory. That demonstrates abnormal liver function tests. She is cared for by and she carries a diagnosis of primary biliary cirrhosis. At the [facility] on March 15, 2017 she had [...] the biopsy are felt to be good Adebayo Silverio M.D., F.A.C.S. Assessment AND Plan Plan [...] Discontinued Reason: Order Chan35 mg PO BID Pham villegas 03/29/17 9507 <Electronically signed by Adebayo Silverio MD> Date Adebayo Silverio MD Cosigner Signature: Date (if applicable) CC: Mindi Callejas Start: 03-21-2017 End: 03-21-2017 Breast Limited Unilateral Comments: See Note; NOTES: [facility] Imaging Services [address] [place] [address] Breast Limited Unilateral MR#: [id number] Acct: [id number] Name: PAT SORTO Rep #: [id number] : 1960 F 57 From: Wil Arora MD PCP: Mindi Dasilva DO Status: REG CLI Study: Breast Limited Unilateral Date of Exam: 03/21/17 Exam# [id number] Ordering Dr: Mindi Dasilva DO STUDY: ULTRASOUND [...] Wil Arora MD at 12:40 EST Tel [phone], Service support , CC: Mindi Dasilva DO Tape Rules Printing Machine Operator: Signed Mindi Dasilva Work Phone: Start: 03-15-2017 End: 03-15-2017 SCREENING MAMM (CAD), BILAT Comments: See Note; NOTES: [facility] Imaging Services [address] [place] [address] SCREENING MAMM (CAD), BILAT MR#: [id number] Acct: [id number] Name: PAT SORTO Rep #: [id number] : 1960 F 57 From: Wil Arora MD PCP: Mindi Dasilva DO Status: REG CLI Study: SCREENING MAMM (CAD), BILAT Date of Exam: 03/15/17 Exam# [id number] Ordering Dr: Mindi Dasilva DO MAMMOGRAPHY - [...] delay biopsy of a clinically suspicious abnormality. [id number] Electronically Signed: Wil Arora MD at 12:42 EST Tel [phone], Service support , CC: Mindi Dasilva DO Tape Rules Printing Machine Operator: Signed Mindi Dasilva Work Phone: Start: 01-28-2017 End: 01-29-2017 Chest without Contrast Comments: See Note; NOTES: [facility] Imaging Services [address] [place] [address] Chest without Contrast MR#: [id number] Acct: [id number] Name: PAT SORTO Rep #: [id number] : 1960 F 56 From: Wil Arora MD PCP: Mindi Dasilva DO Status: REG CLI Study: Chest without Contrast Date of Exam: 01/28/17 Exam# [id number] Ordering Dr: Jarred Schulte MD STUDY: CT [...] Wil Arora MD at 13:07 EDT Tel [phone], Service support , CC: Jarred Schulte MD; Mindi Dasilva DO Tape Rules Printing Machine Operator: Signed Mindi Dasilva Start: 01-24-2017 End: 01-24-2017 Dexa Bone Density Study (HP) Comments: See Note; NOTES: [facility] Imaging Services [address] [place] [address] Dexa Bone Density Study (HP) MR#: [id number] Acct: [id number] Name: PAT SORTO Rep #: [id number] : 1960 F 56 From: Wil Arora MD PCP: Mindi Dasilva DO Status: REG CLI Study: Dexa Bone Density Study () Date of Exam: 01/24/17 Exam# [id number] Ordering Dr: Ney Hart MD STUDY: DUAL [...] Wil Arora MD at 11:34 EDT Tel [phone], Service support , CC: Mindi Dasilva DO; Ney Hart Tape Rules Printing Machine Operator: Signed Mindi Dasilva Start: 03-07-2016 Total knee replacement Mindi Dasilva Comment on above: Patient: PAT SORTO : 1960 (56 /F) Acct Num: [id number] Phys: Josh De Los Santos DO Unit Num: [id number] Loc: [facility] Specimen: [id number] Received: 03/07/161221 Spec Type: TOTAL KNEE TISSUES TISSUES: GROSS [...] prominent osteophyte formation, eburnation, and bone erosion. Scrapper sections are submitted in two cassettes as follows: 1 - Soft tissue, 2 - bone after decalcification. / SJ:dru 03/07/16 TC:5 CPT: 00329, 69331 HEADER OPERATION: Left total knee arthroplasty PRE-OP DIAGNOSIS: Unilateral primary osteoarthritis, left knee TISSUE SUBMITTED: Bone, left knee MICROSCOPIC DESCRIPTION Slides are reviewed. MICROSCOPIC DIAGNOSIS Bone and soft tissue of left knee, total knee resection: Mild synovial hyperplasia. Severe degenerative joint disease. AM:dru 03/12/16 Signed Bill Tomas [id number], [address] Start: 03-05-2016 End: 03-05-2016 12 lead ECG Comments: See Note; NOTES: [facility] Cardiovascular Services [address] [place] [address] 12 Lead EKG 03/02/16 1031 MR#: [id number] Acct: [id number] Name: PAT KELLEY Rep #: [id number] : 1960 56 From: Serena Callaway MD Attending Dr: Alan Mcqueen Status: REG [facility] Ordering Dr: Alan Murry PA-C Date: 03/02/16 [...] Normal sinus rhythm Normal ECG Confirmed by SID NARAYAN, SERENA ([id number]), publication editor LAURO DECKER ([id number]) on 03/05/2016 9:41:28 AM Referred By: OLGA Confirmed By:SERENA CALLAWAY MD 03/05/16 0941 Date Serena Callaway MD CC: Mindi Dasilva DO Date Dictated: 03/02/16 1031 Date Transcribed: 03/02/16 103 Tape Rules Printing Machine Operator: Signed Mindi Brown Start: 02-13-2016 End: 02-13-2016 Chest without Contrast Comments: See Note; NOTES: [facility] Imaging Services [address] [place] [address] Verdana 4d Chest without Contrast MR#: [id number] Acct: [id number] Name: PAT KELLEY Rep #: [id number] : 1960 F 56 From: Simone Winchester MD PCP: Mindi Dasilva DO Status: REG CLI Study: Chest without Contrast Date of Exam: 02/13/16 Exam# [id number] Ordering Dr: Jarred Schulte MD STUDY: CT [...] MD at 23:25 EST , Service support [phone], CC: Jarred Schulte MD; Mindi Dasilva DO Tape Rules Printing Machine Operator: Signed Mindi Dasilva Start: 09-30-2015 End: 10-04-2015 PET/CT Tumor Base -Thigh Init Comments: See Note; NOTES: [facility] Imaging Services [address] [place] [address] Verdana 4d PET/CT Tumor Base -Thigh Init MR#: [id number] Acct: [id number] Name: PAT KELLEY Rep #: [id number] : 1960 F 55 From: Nicci Shane DO PCP: Mindi Dasilva DO Status: REG CLI Study: PET/CT Tumor Base -Thigh Init Date of Exam: 10/03/15 Exam# [id number] Ordering Dr: David Stanley ROPE TOW OPERATOR-C EXAMINATION: FDG PET CT INDICATIONS: A 55-year-old [...] Seminars in Thoracic and Cardiovascular Surgery 14:292, 2002). 4. Prominent glucose concentration observed in the descending thoracic, as well as abdominal aorta is commensurate with activated leukocytes associated with atherosclerotic plaque formation. (Uvaldo et al, Clinical Nuclear Medicine 29:93, 2004). Electronic Signature Nicci Shane D.O. Electronically Signed: Nicci Shane DO at 21:44 EDT Tel , Service support [phone], CC: David Stanley; Mindi Dasilva DO Tape Rules Printing Machine Operator: Signed Mindi Dasilva Start: 09-20-2015 End: 09-20-2015 Chest WITH Contrast Comments: See Note; NOTES: [facility] Imaging Services [address] [place] [address] Verdana 4d Chest WITH Contrast MR#: [id number] Acct: [id number] Name: PAT KELLEY Rep #: [id number] : 1960 F 55 From: Wil Arora MD PCP: Mindi Dasilva DO Status: REG CLI Study: Chest WITH Contrast Date of Exam: 09/20/15 Exam# [id number] Ordering Dr: Jarred Schulte MD STUDY: CT [...] Wil Arora MD at 8:54 EDT Tel [phone], Service support [phone], CC: Jarred Schulte MD; Mindi Dasilva DO Tape Rules Printing Machine Operator: Signed Mindi Dasilva Start: 07-18-2015 End: 07-18-2015 Spmtry w/vc expiratory deion w/wo mxml vol vntj [Preliminary Information] Sensor Calibration Date: 07/26/2014; Sensor SN: [id number]; Pressure: 760; Temperature: 21.8933765885001 [Pre-Bronchodilator] FVC: 2.51538465255910; FEV (0.5 secs): 1.16981335462965; FEV (1.0 sec): 2.59108279587116; FEV (3.0 secs): 1.73741956701446; FEV (6.0 secs): 0; FEV (1.0 sec) / FVC: 83.7485837809407; FEV (3.0 secs) / FVC: 71.7294823795946; FEV (1.0 sec) / FEV (6.0 secs): 0; FEF (25-75%): 2.34116896690699; FEF (75-85%): 0.317508047294178; PEF: 4.3163208906295; FEF (25%): 4.11428699893226; FEF (75%): 1.4213369653221; FEF (200-1200): 3.22144410774060; EXP TIME: 2.5; Best FVC: 2.13633541492044; Best FEV (1.0 sec): 2.37114342943931; V ext.: 0.4676795244340663; FIVC: 2.79141810781504; FIV (0.5 sec): 0.440814081465205; FEV (0.5 secs) / FIV (0.5 secs): 224.33982720443; FIF (50%): 1.7820062646498; FEF (50%) / FIF (50%): 141.654752439172; MVV: 0; MTV: 0; RR: 0; MVV [...] me -- no printed version bc honorio mathewog not in at tiime and i dindt want to make pt repeat study so i read on computer screenn Start: 07-12-2015 End: 07-13-2015 Ribs Unil 2V No CXR Comments: See Note; NOTES: [facility] Imaging Services [address] [place] [address] Verdana 4d Ribs Unil 2V No CXR MR#: [id number] Acct: [id number] Name: PAT KELLEY Key Rep #: [id number] : 1960 F 55 From: Wil Arora MD PCP: Mindi Dasilva DO Status: REG CLI Study: Ribs Unil 2V No CXR Date of Exam: 07/12/15 Exam# [id number] Ordering Dr: Mindi Dasilva DO STUDY: X-RAY [...] Wil Arora MD at 9:58 EDT Tel [phone], Service support [phone], RAD/Ribs Unil 2V No CXR IMPRESSION: Normal x-ray examination of the ribs. Electronically Signed: Wil Arora MD at 9:58 EDT Tel [phone], Service support [phone], CC: Mindi Dasilva DO Tape Rules Printing Machine Operator: Signed Mindi Dasilva Work Phone: Start: 07-11-2015 End: 07-11-2015 Spmtry w/vc expiratory deion w/wo mxml vol vntj _ Mindi Dasilva Work Phone: Comment on above: lil obstruction Start: 06-13-2015 End: 06-15-2015 Chest PA and Lateral Comments: See Note; NOTES: [facility] Imaging Services [address] [place] [address] Verda 4d Chest PA and Lateral MR#: [id number] Acct: [id number] Name: PAT KELLEY Rep #: [id number] : 1960 F 55 From: Wil Arora MD PCP: Mindi Dasilva DO Status: REG CLI Study: Chest PA and Lateral Date of Exam: 06/13/15 Exam# [id number] Ordering Dr: Mindi Dasilva DO STUDY: X-RAY [...] Wil Arora MD at 14:21 EST Tel [phone], Service support [phone], RAD/Chest PA and Lateral IMPRESSION: Noncalcified 1.9 cm x 1.3 cm nodule in the left upper lobe. Electronically Signed: Wil Arora MD at 14:21 EST Tel [phone], Service support [phone], CC: Mindi Dasilva DO Tape Rules Printing Machine Operator: Signed Mindi Dasilva Work Phone: Start: 06-25-2014 End: 06-25-2014 Emergency Department Summary Comments: See Note; NOTES: [facility] Medical Records Department [address] [place] [address] Emergency Department Summary MR#: [id number] Acct: [id number] Name: PAT SORTO Rep #: [id number] : 1960 54 From: Neeraj Inman MD PCP: Mindi Dasilva DO Status: [facility] DATE OF SERVICE: 06/25/2014 CHIEF COMPLAINT: Nosebleed. [...] C: Mindi Sánchez MD T: NTS JOB: [id number] 06/25/1442 <Electronically signed by Neeraj Inman MD> Date Neeraj Inman MD CC: Mindi Dasilva DO; Sen Mahmood MD Date Dictated: 06/25/14251 Date Transcribed: 06/25/14251 Tape Rules Printing Machine Operator: Signed Mindi Dasilva Start: 06-25-2014 End: 06-25-2014 Discharge Instruction Comments: See Note; NOTES: [facility] Medical Records Department [address] [place] [address] Discharge Instruction 06/25/14220 MR#: [id number] Acct: [id number] Name: PAT SORTO Key Rep #: [id number] : 1960 54 From: Neeraj Inman MD PCP: Mindi Dasilva DO Status: REG ER ED Disposition - Plan for ED Patient: Disposition: Home Chief Complaint: Nosebleed Instructions: Nosebleed Prescriptions: Hydrocodone Bitart/Apap 5-325 [[place] 5/325] 1 - 2 tablet PO Q4H [...] closest Emergency Room. Call 911 if necessary. 06/25/14223 <Electronically signed by Neeraj Inman MD> Date Neeraj Inman MD Cosigner Signature (If Indicated): Date CC: Mindi Dasilva DO Mindi Dasilva Start: 06-07-2014 End: 06-07-2014 Biopsy/Inj or Needle Placement Comments: See Note; NOTES: [facility] Imaging Services [address] [place] [address] CAT Scan Report MR#: [id number] Acct: [id number] Name: PAT SORTO Rep #: [id number] : 1960 F 54 From: Wil Arora MD PCP: Mindi Dasilva DO Status: REG CLI Study: Biopsy/Inj or Needle Placement Date of Exam: 06/07/14 Exam# [id number] Ordering Dr: Ney aHrt MD PROCEDURE: CT GUIDED biopsy of the [...] Wil Arora MD at 10:30 EST Tel [phone], Service support [phone], CC: Mindi Dasilva DO; Ney Hart Tape Rules Printing Machine Operator: Signed Mindi Dasilva Start: 04-14-2014 End: 04-14-2014 12 lead ECG Comments: See Note; NOTES: [facility] Cardiovascular Services [address] [place] [address] 12 Lead EKG 04/13/14 1412 MR#: [id number] Acct: [id number] Name: PAT SORTO Rep #: [id number] : 1960 54 From: Serena Callaway MD Attending Dr: Josh De Los Santos DO Status: REG CLI Ordering Dr: Josh De Los Santos DO Date: 04/13/14 Location: LAB Sex: F C Admitted: Test Reason : PRE-OP Blood Pressure : / mmHG Vent. Rate : 067 BPM Atrial Rate : 067 BPM P-R Int : 110 ms QRS Dur : 080 ms QT Int : 402 ms P-R-T Axes : 059 058 010 degrees QTc Int : 424 ms Sinus rhythm with short [place] Low voltage QRS ( LIMB LEADS) Confirmed by SID NARAYAN, SERENA ([id number]), publication editor TATE HAQUE (56) on 04/14/2014 10:27:14 AM Referred By: ALEM Confirmed By:SERENA CALLAWAY MD 04/14/14 1027 Date Serena Callaway MD CC: Mindi Dasilva DO Date Dictated: 04/13/14 1412 Date Transcribed: 04/13/141411 Tape Rules Printing Machine Operator: Signed Mindi Dasilva Start: 11-10-2013 End: 11-10-2013 Bilat Scrn Digital & CAD Comments: See Note; NOTES: [facility] Imaging Services [address] [place] [address] Breast Imaging Report MR#: [id number] Acct: [id number] Name: PAT SORTO Rep #: [id number] : 1960 F 53 From: Wil Arora MD PCP: Mindi Dasilva DO Status: REG CLI Exam# [id number] Ordering Dr: Farhana Alcaraz MAMMOGRAPHY - BILATERAL [...] Wil Arora MD at 14:53 EDT Tel [phone], Service support [phone], CC: Farhana Alcaraz; Mindi Dasilva DO Tape Rules Printing Machine Operator: Signed Kira Kieran Work Phone: Start: 11-10-2013 End: 11-10-2013 Dexa Bone Density Study (HP) Comments: See Note; NOTES: [facility] Imaging Services [address] [place] [address] Bone Density Report MR#: [id number] Acct: [id number] Name: PAT SORTO Rep #: [id number] : 1960 F 53 From: Wil Arora MD PCP: Mindi Dasilva DO Status: REG CLI Study: Dexa Bone Density Study (HP) Date of Exam: 11/10/13 Exam# [id number] Ordering Dr: Farhana Alcaraz STUDY: DUAL ENERGY [...] Wil Arora MD at 16:08 EDT Tel [phone], Service support [phone], CC: Farhana Alcaraz; Mindi Dasilva DO Tape Rules Printing Machine Operator: Signed Farhana Alcaraz Work Phone: Start: 11-07-2013 End: 11-08-2013 Abdomen Limited Comments: See Note; NOTES: [facility] Imaging Services [address] [place] [address] Ultrasound Report MR#: [id number] Acct: [id number] Name: PAT SORTO Rep #: [id number] : 1960 F 53 From: Myles Ames PCP: Mindi Dasilva DO Status: REG CLI Study: Abdomen Limited Date of Exam: 11/07/13 Exam# [id number] Ordering Dr: Farhana Alcaraz STUDY: ABDOMINAL ULTRASOUND [...] Myles Ames MD at 7:06 EDT Tel [phone] , Service support [phone], CC: Farhana Alcaraz; Mindi Dasilva DO Tape Rules Printing Machine Operator: Signed Farhana Alcaraz Work Phone: Plan of Treatment Date Care Activity Detail Author Start: 07-04-2026 Diabetes Screening Diabetes Screening [facility] Start: 06-03-2026 Diabetes Screening Diabetes Screening [facility] Start: 05-01-2026 Diabetes Screening Diabetes Screening [facility] Start: 03-11-2026 Diabetes Screening Diabetes Screening [facility] Start: 03-05-2026 Diabetes Screening Diabetes Screening [facility] Start: 02-07-2026 Diabetes Screening Diabetes Screening [facility] Start: 01-09-2026 Diabetes Screening Diabetes Screening [facility] Start: 12-31-2025 Diabetes Screening Diabetes Screening [facility] Start: 12-21-2025 Complete blood count Hemoglobin/Hematocrit [facility] Start: 12-21-2025 Creatinine measurement Serum Creatinine [facility] Start: 12-20-2025 Diabetes Screening Diabetes Screening [facility] Start: 12-17-2025 DIABETES SCREEN DIABETES SCREEN [facility] Start: 12-17-2025 Diabetes Screening Diabetes Screening [facility] Start: 12-15-2025 Annual PCP Team Chronic Disease Visit Annual PCP Team Chronic Disease Visit [facility] Start: 12-15-2025 Complete blood count Hemoglobin/Hematocrit [facility] Start: 12-15-2025 Creatinine measurement Serum Creatinine [facility] Start: 12-03-2025 DIABETES SCREEN DIABETES SCREEN [facility] Start: 11-27-2025 Complete blood count Hemoglobin/Hematocrit [facility] Start: 11-27-2025 Creatinine measurement Serum Creatinine [facility] Start: 11-15-2025 DIABETES SCREEN DIABETES SCREEN [facility] Start: 11-07-2025 DIABETES SCREEN DIABETES SCREEN [facility] Start: 11-06-2025 DIABETES SCREEN DIABETES SCREEN [facility] Start: 10-31-2025 DIABETES SCREEN DIABETES SCREEN [facility] Start: 10-26-2025 Annual PCP Team Chronic Disease Visit Annual PCP Team Chronic Disease Visit [facility] Start: 10-13-2025 Annual PCP Team Chronic Disease Visit Annual PCP Team Chronic Disease Visit [facility] Start: 09-25-2025 DIABETES SCREEN DIABETES SCREEN [facility] Start: 09-24-2025 DIABETES SCREEN DIABETES SCREEN [facility] Start: 09-22-2025 Annual PCP Team Chronic Disease Visit Annual PCP Team Chronic Disease Visit [facility] Start: 09-22-2025 Hepatitis B screening Urine Albumin:Creatinine Ratio [facility] Start: 09-22-2025 Hepatitis B surface antibody level LDL Cholesterol [facility] Start: 09-21-2025 DIABETES SCREEN DIABETES SCREEN [facility] Start: 09-20-2025 DIABETES SCREEN DIABETES SCREEN [facility] Start: 09-07-2025 BP Controlled (<130/80) BP Controlled (<130/80) [facility] Start: 09-06-2025 DIABETES SCREEN DIABETES SCREEN [facility] Start: 07-08-2025 Hepatitis B screening Urine Albumin:Creatinine Ratio [facility] Start: 07-08-2025 Hepatitis B surface antibody level LDL Cholesterol [facility] Start: 07-04-2025 DIABETES SCREEN DIABETES SCREEN [facility] Start: 04-26-2025 End: 04-26-2025 ambulatory [facility] Comment on above: BMP(S)* 2nd BMP(S)(PORT)* Start: 04-24-2025 BP Controlled (<130/80) BP Controlled (<130/80) [facility] Start: 04-15-2025 End: 04-15-2025 ambulatory 04/15/2025 4:00 PM [facility] Endocrinology [address] [place] [address] Daisy Titus, FELICIA.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 [address] [place] [address] 6 month f/u Endocrinology Comment on above: 6 month f/u Start: 04-08-2025 End: 07-08-2025 Comprehensive metabolic 2000 panel - Serum or Plasma COMPREHENSIVE METABOLIC PANEL Lab Routine Diabetes mellitus treated with insulin (HCC) Expected: 04/08/2025, Expires: 07/08/[address] [facility] Work Phone: Comment on above: Expected: 04/08/2025, Expires: Start: 04-08-2025 End: 07-08-2025 Hemoglobin A1c in Blood HEMOGLOBIN A1C Lab Routine Diabetes mellitus treated with insulin (HCC) Expected: 04/08/2025, Expires: 07/08/2025 [facility] Comment on above: Expected: 04/08/2025, Expires: Start: 04-08-2025 End: 07-08-2025 LIPID PANEL, NONFASTING LIPID PANEL, NONFASTING Lab Routine Diabetes mellitus treated with insulin (HCC) Expected: 04/08/2025, Expires: 07/08/2025 [facility] Comment on above: Expected: 04/08/2025, Expires: Start: 04-08-2025 End: 07-08-2025 Microalbumin/Creatinine [Mass Ratio] in Urine ALBUMIN/CREATININE RATIO, URINE Lab Routine Diabetes mellitus treated with insulin (HCC) Expected: 04/08/2025, Expires: 07/08/2025 [facility] Comment on above: Expected: 04/08/2025, Expires: Start: 03-25-2025 End: 03-25-2025 Patient encounter procedure 03/25/2025 9:30 AM EST Office Visit Urogynecology [address] [place] [address] Farhana Sanders MD [address] [place] [address] Frequent UTI's Urogynecology Comment on above: Frequent UTI's Start: 03-24-2025 Hemoglobin A1c measurement HbA1C [facility] Start: 03-23-2025 End: 03-23-2025 Patient encounter procedure Internal Medicine Sharad Comment on above: Yearly Yearly (patient insu talia asking about prescribing a statin) Start: 03-18-2025 Annual PCP Team Chronic Disease Visit Annual PCP Team Chronic Disease Visit [facility] Start: 03-18-2025 End: 03-18-2025 Patient encounter procedure 03/18/2025 2:00 PM EST Office Visit Plastic Surgery [address] [address] Micki Marcelino MD [address] [place] [address] follow up Plastic Surgery Comment on above: follow up Start: 02-19-2025 DIABETES SCREEN DIABETES SCREEN [facility] Start: 02-08-2025 End: 02-08-2025 ambulatory Hematology/Oncology Comment on above: OV PET SCAN OV PET SCAN/02/01* Start: 02-03-2025 End: 02-03-2025 Patient encounter procedure 02/03/2025 10:15 AM EDT Office Visit Urology [address] [place] [address] Garth Reza MD [address] [address] cysto stent Urology Comment on above: cysto stent Start: 02-01-2025 End: 02-01-2025 Patient encounter procedure Mobile PET CT Comment on above: Malignant neoplasm of left breast in fem nicolette, estrogen receptor positive, unspecified site of breast (HCC) [C50.912, Z17.0] Start: 01-24-2025 Subsequent hospital visit by physician 01/24/2025 [facility]counter [facility] [address] [place] [address] [id number] Micki Marcelino MD [address] [facility] [place], [place] [phone] Lymphedema [I89.0], History of breast cancer [Z85.3], History of breast reconstruction [Z98.890] Surgery Center Comment on above: Lymphedema [I89.0], History of breast ca ncer [Z85.3], History of breast reconstruction [Z98.890] Start: 01-20-2025 End: 01-20-2025 ambulatory 01/20/2025 3:00 PM EDT OT/PT/Speech Visit [facility] [address] [place] [address] Milagros Brown, PT Lymphedema [facility] Physical [facility] Comment on above: Lymphedema Start: 01-19-2025 End: 01-19-2025 Admission to same day surgery center 01/19/2025 8:00 AM EDT - 01/19/2025 9:20 AM EDT Surgery [facility] Surgery [address] [address] Garth Reza MD [address] [place] [place] [address] EXTRACORPOREAL SHOCKWAVE LITHOTRIPSY UNILATERAL [facility] Surgery Comment on above: EXTRACORPOREAL SHOCKWAVE LITHOTRIPSY UNI LATERAL Start: 01-19-2025 End: 01-19-2025 Cysto w/insert ureteral stent INSERTION STENT DOUBLE J Renal stones 01/19/2025 8:00 AM EDT MR OR Start: 01-19-2025 End: 01-19-2025 Lithotripsy xtrcorp shock wave EXTRACORPOREAL SHOCKWAVE LITHOTRIPSY UNILATERAL Renal stones 01/19/2025 8:00 AM EDT MR OR Start: 01-19-2025 Subsequent hospital visit by physician 01/19/2025 8:00 AM EDT Hospital Encounter [facility] Surgery [address] [place] [address] Garth Reza MD [address] [place] [address] Renal stones [N20.0] [facility] Surgery Comment on above: Renal stones [N20.0] Start: 01-18-2025 DIABETES SCREEN DIABETES SCREEN [facility] Start: 01-18-2025 End: 01-18-2025 ambulatory 01/18/2025 9:00 AM EDT OT/PT/Speech Visit [facility] Physical Therapy [place] [address] [place] [address] Noe Jackson PTA [address] [place] [address] Lymphedema [facility] Physical Therapy [place] Comment on above: Lymphedema Start: 01-17-2025 End: 04-18-2025 Comprehensive metabolic 2000 panel - Serum or Plasma COMPREHENSIVE METABOLIC PANEL Lab Routine Coronary artery calcification Expected: 01/17/2025, Expires: 04/18/[address] [facility] Work Phone: Comment on above: Expected: 01/17/2025, Expires: Start: 01-17-2025 End: 03-19-2025 LIPID PANEL, NONFASTING LIPID PANEL, NONFASTING Lab Routine Coronary artery calcification Expected: 01/17/2025, Expires: 03/19/2025 [facility] Comment on above: Expected: 01/17/2025, Expires: Start: 01-14-2025 End: 01-14-2025 ambulatory 01/14/2025 9:00 AM EDT OT/PT/Speech Visit [facility] Physical Therapy [place] [address] [place] [address] Noe Jackson, PILEDRIVER CARPENTER [address] [place] [address] L[facility]ema [facility] [place] Comment on above: Lymphedema Start: 01-13-2025 End: 01-13-2025 Patient encounter procedure 01/13/2025 10:00 AM EDT Office Visit Orthopaedics [address] [phone] Adebayo Avila PA-C [address] [place] [address] 1 year follow up right hip Orthopaedics Comment on above: 1 year follow up right hip Start: 01-11-2025 End: 01-11-2025 ambulatory 01/11/2025 8:15 AM EDT OT/PT/Speech Visit [facility] Physical Therapy [address] [place] [address] Noe Jackson, PILEDRIVER CARPENTER [address] [place] [address] Lymphedema [facility] Physical Therapy [place] Comment on above: Lymphedema Start: 01-08-2025 End: 01-08-2025 ambulatory Hematology/Oncology Comment on above: OV Lymphedema Start: 01-07-2025 Hemoglobin A1c measurement HbA1C [facility] Start: 01-06-2025 End: 01-06-2025 ambulatory 01/06/2025 9:45 AM EDT OT/PT/Speech Visit [facility] Physical Therapy [place] [address] [place] [address] Noe Jackson, P[employer]EDRIVER CARPENTER [address] [place] [address] Lymphedema [facility] Physical [facility] Comment on above: Lymphedema Start: 01-05-2025 End: 04-06-2025 Urinalysis complete panel - Urine URINALYSIS (WITH MICROSCOPIC) WITH CULTURE IF INDICATED Lab Routine Recurrent UTI Expected: 01/05/2025 (Approximate), Expires: 04/06/[address] [facility] Work Phone: Comment on above: Expected: 01/05/2025 (Approximate), Expi res: 04/06/2025 Start: 01-05-2025 End: 01-05-2025 ambulatory Hematology/Oncology Comment on above: QWK CBC/CMP(PORT) urine Start: 12-30-2024 End: 12-30-2024 ambulatory 12/30/2024 8:15 AM EDT OT/PT/Speech Visit [facility] Physical [address] [address] Noe Jackson, P[employer]EDRIVER CARPENTER [address] [place], [place] [phone] Lymphedema [facility] Physical [facility] Comment on above: Lymphedema Start: 12-29-2024 End: 12-29-2024 ambulatory 12/29/2024 9:15 AM EDT [facility] Hematology/Oncology [address] [place] [address] Wstr, Lab/Port [facility] [address] [place] [address] QWK CBC/CMP(PORT) Hematology/Oncology Comment on above: QWK CBC/CMP(PORT) Start: 12-28-2024 End: 12-28-2024 ambulatory 12/28/2024 8:15 AM EDT OT/PT/Speech Visit [facility] Physical [facility] [address] [facility] [place], [place] [phone] Noe Jackson, P[employer]RIVER [employer]PENTER [address] [place], [place] [phone] Lymphedema [facility] Physical Therapy [place] Comment on above: Lymphedema Start: 12-25-2024 End: 12-25-2024 Patient encounter procedure 12/25/2024 11:30 AM EDT [facility] [address] [address] Tatianna Crook, [facility] [address] [place] [address] DM f/up [facility] Comment on above: DM f/up Start: 12-25-2024 End: 12-25-2024 ambulatory 12/25/2024 9:45 AM EDT OT/PT/Speech Visit [facility] Physical Therapy [place] [address] [place] [address] Noe Jackson, P[employer]RIVER CARPENTER [address] [place] [address] Lymphedema [facility] Physical Therapy [place] Comment on above: Lymphedema Start: 12-24-2024 End: 12-24-2024 ambulatory 12/24/2024 9:00 AM EDT [facility] Hematology/Oncology [address] [place] [address] 2ND FLOOR Hematology/Oncology Comment on above: 2ND FLOOR Start: 12-23-2024 End: 12-23-2024 ambulatory 12/23/2024 9:00 AM EDT OT/PT/Speech Visit [facility] Physical Therapy [place] [address] [place] [address] Noe Jackson, PILEDRIVER CARPENTER [address] [place] [address] Lymphedema [facility] [place] Comment on above: Lymphedema Start: 12-22-2024 End: 12-22-2024 Patient encounter procedure 12/22/2024 10:00 AM EDT Office Visit Plastic Surgery [address] [phone] Micki Marcelino MD [address] [place] [address] post op Plastic Surgery Comment on above: post op Start: 12-21-2024 End: 12-21-2024 ambulatory 12/21/2024 4:30 PM EDT OT/PT/Speech Visit [facility] Physical Therapy [place] [address] [place] [address] Milagros Brown, PT Progress summary [facility] Physical Therapy [place] Comment on above: Progress summary Start: 12-21-2024 End: 12-21-2024 ambulatory Hematology/Oncology Comment on above: 2ND FLOOR IRON SUCROSE 200* 4-5 2ND FLOOR Start: 12-18-2024 End: 12-18-2024 ambulatory 12/18/2024 3:30 PM EDT Infusion Center Hematology/Oncology [address] [place], [place] [phone] 2ND FLOOR Hematology/Oncology Comment on above: 2ND FLOOR Start: 12-18-2024 End: 12-18-2024 ambulatory [facility] Physical Therapy [place] Comment on above: Lymphedema 2ND FLOOR Start: 12-18-2024 End: 12-18-2024 Patient encounter procedure 12/18/2024 10:00 AM EDT Office Visit Cardiology [address] [place] [address] David Armstrong MD [address] [place] [address] Primary hypertension [I10] Cardiology Comment on above: Primary hypertension [I10] Start: 12-17-2024 End: 12-17-2024 ambulatory 12/17/2024 3:00 PM EDT Infusion Center Hematology/Oncology [address] [place], [place] [phone] 2ND FLOOR Hematology/Oncology Comment on above: 2ND FLOOR Start: 12-17-2024 End: 12-17-2024 Patient encounter procedure 12/17/2024 10:00 AM EDT Office Visit Plastic Surgery [address] [phone] Micki Marcelino MD [address] [place] [address] Reading Plastic Surgery Comment on above: Reading Start: 12-16-2024 End: 12-16-2024 Patient encounter procedure 12/16/2024 4:00 PM EDT Office Visit [facility] [address] [facility] [address] [place] [phone] Garth Reza MD [address] [place] [phone] Dx: Recurrent UTI [N39.0]; Malignant neoplasm of lower-outer quadrant of left breast of female, estrogen receptor positive (HCC) [C50.512, Z17.0]; 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] Urology Comment on above: Dx: Recurrent UTI [N39.0]; Malignant aneta plasm of lower-outer quadrant of left breast of female, estrogen receptor positive (HCC) [C50.512, Z17.0]; 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] Start: 12-16-2024 End: 12-16-2024 ambulatory 12/16/2024 3:00 PM EDT OT/PT/Speech Visit [facility] Physical [facility] [address] [place], [place] [phone] HarChucky cheathamanda, [employer] [address] [place] [address] Lymphedema [facility] Physical Therapy [place] Comment on above: Lymphedema Start: 12-15-2024 End: 12-15-2024 Patient encounter procedure 12/15/2024 11:40 AM EDT Office Visit Internal Medicine [place] [address] [place], [place] [phone] Cathy Burr APRN.FORM BLOCK MAKER [address] [place], [place] [address] uti Internal Medicine [place] Comment on above: uti Start: 12-15-2024 End: 12-15-2024 ambulatory 12/15/2024 10:30 AM EDT Infusion Center Hematology/Oncology [address] [place] [address] 2ND FLOOR Hematology/Oncology Comment on above: 2ND FLOOR Start: 12-14-2024 End: 12-14-2024 ambulatory 12/14/2024 11:00 AM EDT Education Endocrinology [address] [place] [address] Erica Lyons, RD [address] [address] Advice for diabetics and kidneys Endocrinology Comment on above: Advice for diabetics and kidneys Start: 12-11-2024 End: 12-11-2024 ambulatory 12/11/2024 8:30 AM EDT Infusion Center Hematology/Oncology [address] [place] [address] 2ND FLOOR Hematology/Oncology Comment on above: 2ND FLOOR Start: 12-10-2024 End: 12-10-2024 ambulatory 12/10/2024 12:45 PM EDT OT/PT/Speech Visit [facility] Physical Therapy [place] [address] [place] [address] Milagros Brown, PT lymph [facility] Physical Therapy [place] Comment on above: lymph Start: 12-08-2024 End: 12-08-2024 ambulatory 12/08/2024 2:15 PM EDT OT/PT/Speech Visit [facility] Physical [facility] [address] [place] [address] Noe Jackson, CLIFF [address] [place] [address] lymph [facility] Physical Therapy [place] Comment on above: lymph Start: 12-07-2024 Influenza vaccination [facility] Start: 12-06-2024 Subsequent hospital visit by physician 12/06/2024 [facility] [address] [address] Micki Marcelino MD [address] [place] [address] Lymphedema [I89.0] Surgery Center Comment on above: Lymphedema [I89.0] Start: 12-03-2024 End: 12-03-2024 ambulatory 12/03/2024 9:45 AM EDT OT/PT/Speech Visit [facility] Physical Therapy [place] [address] [place] [address] Noe Jackson, [employer]RIVER [employer] [address] [place] [address] lymphedema [facility] Physical Therapy [place] Comment on above: lymphedema Start: 12-01-2024 End: 12-01-2024 ambulatory 12/01/2024 11:30 AM EDT Infusion Center Hematology/Oncology [address] [place] [address] Wstr, Lab/Port [facility] [address] [place] [address] IRON LEVELS(PORT)* Hematology/Oncology Comment on above: IRON LEVELS(PORT)* Start: 11-27-2024 End: 11-27-2024 ambulatory 11/27/2024 11:30 AM EDT Infusion Center Hematology/Oncology [address] [place] [address] Wstr, Lab/Port [facility] [address] [place] [address] (PORT) Hematology/Oncology Comment on above: (PORT) Start: 11-23-2024 End: 11-23-2024 Admission to same day surgery center 11/23/2024 10:30 AM EDT - 11/23/2024 12:00 PM EDT Surgery [facility] Rad[facility] [address] [place] [address] [place], [address] [address] INSERTION PORT VENOUS ACCESS ADULT [facility] Comment on above: INSERTION PORT VENOUS ACCESS ADULT Start: 11-23-2024 End: 11-23-2024 Insj tunneled ctr vad w/subq port age 4 yr/> INSERTION PORT VENOUS ACCESS ADULT Malignant neoplasm of left breast in female, estrogen receptor positive, unspecified site of breast (HCC) 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) Lymphedema of left arm Hypokalemia 11/23/2024 10:30 AM EDT ME IR Start: 11-23-2024 Subsequent hospital visit by physician 11/23/2024 10:30 AM EDT Hospital Encounter [facility] Radiology [address] [place] [address] [place], [address] [facility], [address] [address] Malignant neoplasm of left breast in female, estrogen receptor positive, unspecified site of breast (HCC) [C50.912, Z17.0], 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) [C50.912, C79.2], 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], Chemotherapy induced cardiomyopathy (HCC) [I42.7, T45.1X5A], Lymphedema of left arm [I89.0], Hypokalemia [E87.6] [facility] Rad[facility] Comment on above: Malignant neoplasm of left breast in fem nicolette, estrogen receptor positive, unspecified site of breast (HCC) [C50.912, Z17.0], 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) [C50.912, C79.2], 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], Chemotherapy induced cardiomyopathy (HCC) [I42.7, T45.1X5A], Lymphedema of left arm [I89.0], Hypokalemia [E87.6] Start: 11-22-2024 Subsequent hospital visit by physician 11/22/2024 Hospital Encounter Surgery [facility] [address] [address] Micki Marcelino MD [address] [place] [address] Lymphedema [I89.0] Surgery Center Comment on above: Lymphedema [I89.0] Start: 11-20-2024 Glaucoma screening Dilated Retinal Exam [facility] Start: 11-20-2024 End: 11-20-2024 ambulatory [facility] Laboratory Comment on above: (SO)CBC/CMP(S) OV/LAB EARLY* Start: 11-18-2024 End: 11-18-2024 ambulatory 11/18/2024 2:15 PM EDT OT/PT/Speech [facility] [address] [address] Noe Jackson, P[employer]RIVER [employer]PENTER [address] [place] [address] lymph [facility] [place] Comment on above: lymph Start: 11-18-2024 Patient discharge [facility] Start: 11-17-[address] [facility] Start: 11-17-2024 End: 11-17-2024 Patient encounter procedure 11/17/2024 1:00 PM EDT Office Visit Kidney Medicine [facility] [address] [place] [phone] [place] [address] [place] [address] abnormal kidney labs Kidney Medicine [facility] Comment on above: abnormal kidney labs Start: 11-17-2024 Referral [facility] safety aide [facility] Start: 11-16-2024 End: 11-17-[address] [facility] Start: 11-16-2024 End: 11-16-2024 ambulatory 11/16/2024 9:00 AM EDT OT/PT/Speech Visit [facility] [place] [address] [place] [address] Noe Jackson, P[employer]EDRIVER CARPENTER [address] [place] [address] lymph [facility] [place] Comment on above: lymph Start: 11-15-2024 Assessment of risk of venous thromboembolism [facility] Start: 11-15-2024 Care regimes management [facility] Start: 11-15-2024 Fall prevention [facility] Start: 11-15-2024 Inhalation therapy procedure [facility] Start: 11-15-2024 Insertion of catheter into peripheral vein [facility] Start: 11-15-2024 Introduction of urinary catheter [facility] Start: 11-15-2024 Measuring intake and output [facility] Start: 11-15-2024 Notification of physician [facility] Start: 11-15-2024 Oxygen therapy [facility] Start: 11-15-2024 Providing care according to standard [facility] Start: 11-15-2024 Provision of activity privileges [facility] Start: 11-15-2024 Referral for physical therapy [facility] Start: 11-15-2024 Referral to occupational therapist [facility] Start: 11-15-2024 Referral to service [facility] Start: 11-15-2024 Following clinical pathway protocol [facility] Start: 11-15-2024 End: 11-15-[address] [facility] Start: 11-15-2024 Hospital admission, emergency, from emergency room, medical nature [facility] Start: 11-15-2024 Nucleic acid assay [facility] Start: 11-15-2024 Verification routine [facility] Start: 11-15-2024 Admission procedure [facility] Start: 11-15-2024 End: 11-16-[address] [facility] Start: 11-15-2024 Serum inorganic phosphate measurement [facility] Start: 11-15-2024 Bacteria identified in Blood by Culture Blood Culture [facility] Start: 11-15-2024 Bacteria identified in Urine by Culture Urine Culture [facility] Start: 11-15-2024 Blood culture Blood Culture [facility] Start: 11-13-2024 End: 11-13-2024 Patient encounter procedure 11/13/2024 11:00 AM EDT [place] [address] [address] [place] [address] [place] [address] DM f/up [facility] Comment on above: DM f/up Start: 11-10-2024 End: 11-10-2024 Patient encounter procedure 11/10/2024 2:20 PM EDT Office Visit Plastic Surgery [address] [address] Mino Beard APRN.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 [address] [address] ICG/Scan Plastic Surgery Comment on above: ICG/Scan Start: 11-10-2024 BP Controlled (<130/80) BP Controlled (<130/80) [facility] in Start: 11-10-2024 Hepatitis B surface antibody level LDL Cholesterol [facility] Start: 11-09-2024 End: 11-09-2024 ambulatory 11/09/2024 2:15 PM EDT OT/PT/Speech Visit [facility] Physical [address] [address] Milagros Brown, PT Progress summary [facility] Therapy [place] Comment on above: Progress summary Start: 11-09-2024 End: 11-09-2024 ambulatory Hematology/Oncology Comment on above: Q6MO ZOMETA BMP(S)* Start: 11-06-2024 End: 11-06-2024 ambulatory 11/06/2024 9:45 AM EDT OT/PT/Speech Visit [facility] Physical Therapy [place] [address] [place] [address] HarNoe cheatham, P[employer]RIVER [employer]PENTER [address] [place] [address] Lymphedema [facility] Physical [facility] Comment on above: Lymphedema Start: 11-04-2024 End: 11-04-2024 ambulatory 11/04/2024 10:30 AM EDT OT/PT/Speech Visit [facility] Physical [address] [address] Noe Jackson, PILEDRIVER CARPENTER [address] [facility] [place] [address] Lymphedema [facility] Physical Therapy [place] Comment on above: Lymphedema Start: 10-30-2024 End: 10-30-2024 ambulatory Hematology/Oncology Comment on above: 3MO OV* Lymphedema 3MO OV Start: 10-28-2024 End: 10-28-2024 ambulatory 10/28/2024 3:45 PM EDT OT/PT/Speech Visit [facility] Physical Therapy [place] [address] [place] [address] Noe Jackson, PILEDRIVER CARPENTER [address] [facility] [place] [address] Lymphedema [facility] Physical [facility] Comment on above: Lymphedema Start: 10-27-2024 End: 10-27-2024 ambulatory Sharadann Ellsworthwn [facility] Laboratory Comment on above: CQMO BC/CMP QMO CBC/CMP(S) Start: 10-26-2024 End: 10-26-2024 ambulatory 10/26/2024 3:00 PM EDT [facility] Endocrinology [address] [place] [place] [address] Erica Lyons, TONI [address] [id number] Diabetes mellitus treated with insulin (HCC) [E11.9, Z79.4] Endocrinology Comment on above: Diabetes mellitus treated with insulin ( HCC) [E11.9, Z79.4] Start: 10-26-2024 End: 10-26-2024 Patient encounter procedure 10/26/2024 2:20 PM EDT Office Visit Internal Medicine [place] [address] [place] [phone] Lisbet Pizano APRN.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 [address] [place] [address] 10 day follow up Internal Medicine [place] [...] Visit [facility] [place] [address] [place] [address] Noe Jackson PTA [address] [place] [address] Lymphedema [facility] Therapy [place] Comment on above: Lymphedema Start: 10-22-2024 Annual PCP Team Chronic Disease Visit Annual PCP Team Chronic Disease Visit [facility] Start: 10-22-2024 BP Controlled (<130/80) BP Controlled (<130/80) [facility] Start: 10-21-2024 End: 10-21-2024 ambulatory 10/21/2024 3:45 PM EDT OT/PT/Speech Visit [facility] Physical Therapy [place] [address] [address] Noe Jackson P[employer]EDRIVER CARPENTER [address] [place] [address] Lymphedema [facility] Physical Therapy [place] Comment on above: Lymphedema Start: 10-15-2024 End: 10-15-2024 Patient encounter procedure 10/15/2024 1:20 PM EDT Office Visit Plastic Surgery [address] [address] Mino Beard APRN.[facility] [address] [address] follow up Plastic Surgery Comment on above: follow up Start: 10-15-2024 End: 10-15-2024 ambulatory 10/15/2024 10:30 AM EDT OT/PT/Speech Visit [facility] Physical [facility] [address] [place] [address] RenettaNoe, P[employer]EDRIVER CARPENTER [address] [place] [address] Lymphedema [facility] Physical [facility] Comment on above: Lymphedema Start: 10-14-2024 End: 10-14-2024 Patient encounter procedure 10/14/2024 11:45 AM EDT Office Visit Endocrinology [address] [place] [address] Daisy Titus APRN.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 [address] [place] [address] 6 month f/u Endocrinology Comment on above: 6 month f/u Start: 10-13-2024 End: 10-13-2024 ambulatory 10/13/2024 9:45 AM EDT OT/PT/Speech Visit [facility] [address] [place] [address] Renetta Noe, [facility] [address] [place] [address] Lymphedema [facility] Physical [facility] Comment on above: Lymphedema Start: 10-11-2024 Subsequent hospital visit by physician 10/11/2024 Hospital Encounter [facility] [address] [address] Micki Marcelino MD [address] [place] [address] Lymphedema [I89.0] Surgery Center Comment on above: Lymphedema [I89.0] Start: 10-09-2024 End: 01-08-2025 Urinalysis complete panel - Urine URINALYSIS (WITH MICROSCOPIC) WITH CULTURE IF INDICATED Lab Routine Renal insufficiency Urinary tract infection with hematuria, site unspecified Expected: 10/09/2024 (Approximate), Expires: 01/08/2025 [facility] Comment on above: Expected: 10/09/2024 (Approximate), Expi res: 01/08/2025 Start: 10-07-2024 End: 10-07-2024 Patient encounter procedure 10/07/2024 3:30 PM EDT [facility] Pharm Med [facility] [address] [address] Tatianna Crook, [facility] [address] [place] [address] DM f/up Pharm Med [facility] Comment on above: DM f/up Start: 10-07-2024 End: 10-07-2024 ambulatory 10/07/2024 1:45 PM EDT Results Only Sharad [place] [facility] Laboratory [address] [place] [address] [facility] Laboratory Start: 10-07-2024 End: 10-07-2024 ambulatory 10/07/2024 10:15 AM EDT OT/PT/Speech Visit [facility] Physical [facility] [address] [facility] [facility] [address] [place] [address] Milagros Brown, PT Lymphedema [facility] Physical [facility] Comment on above: Lymphedema Start: 10-06-2024 End: 01-05-2025 Comprehensive metabolic 2000 panel - Serum or Plasma COMPREHENSIVE METABOLIC PANEL Lab Routine Diabetes mellitus treated with insulin (HCC) Expected: 10/06/2024, Expires: 01/05/[address] [facility] Work Phone: Comment on above: Expected: 10/06/2024, Expires: Start: 10-06-2024 End: 01-05-2025 Hemoglobin A1c in Blood HEMOGLOBIN A1C Lab Routine Diabetes mellitus treated with insulin (HCC) Expected: 10/06/2024, Expires: 01/05/2025 [facility] Comment on above: Expected: 10/06/2024, Expires: Start: 10-06-2024 End: 01-05-2025 LIPID PANEL, NONFASTING LIPID PANEL, NONFASTING Lab Routine Diabetes mellitus treated with insulin (HCC) Expected: 10/06/2024, Expires: 01/05/2025 [facility] Comment on above: Expected: 10/06/2024, Expires: Start: 10-06-2024 End: 01-05-2025 Microalbumin/Creatinine [Mass Ratio] in Urine ALBUMIN/CREATININE RATIO, URINE Lab Routine Diabetes mellitus treated with insulin (HCC) Expected: 10/06/2024, Expires: 01/05/2025 [facility] Comment on above: Expected: 10/06/2024, Expires: Start: 09-29-2024 End: 09-29-2024 [facility] Comment on above: CQMO BC/CMP QMO CBC/CMP(S) Start: 09-25-2024 End: 12-25-2024 Comprehensive metabolic 2000 panel - Serum or Plasma COMPREHENSIVE METABOLIC PANEL Lab Routine Renal insufficiency Urinary tract infection with hematuria, site unspecified Expected: 09/25/2024, Expires: 12/25/[address] [facility] Work Phone: Comment on above: Expected: 09/25/2024, Expires: Start: 09-24-2024 End: 09-24-2024 ambulatory 09/24/2024 9:45 AM EDT OT/PT/Speech Visit [facility] Physical [facility] [address] [place] [address] Noe Jackson, [employer] [address] [place] [address] Lymphedema [facility] Physical [facility] Comment on above: Lymphedema Start: 09-22-2024 End: 09-22-2024 ambulatory 09/22/2024 10:30 AM EDT OT/PT/Speech Visit [facility] Physical [facility] [address] [place], [place] [phone] Noe Jackson, [employer] [address] [place] [address] Lymphedema [facility] Physical Therapy [place] Comment on above: Lymphedema Start: 09-16-2024 Hemoglobin A1c measurement HbA1C [facility] Start: 09-11-2024 End: 09-11-2024 ambulatory 09/11/2024 9:00 AM EDT OT/PT/Speech Visit [facility] Physical [facility] [address] [place] [address] Noe Jackson, [facility] [address] [place] [address] Lymphedema [facility] Physical [facility] Comment on above: Lymphedema Start: 09-08-2024 End: 09-08-2024 Patient encounter procedure 09/08/2024 11:00 AM EDT [facility] Med [facility] [address] [phone] [facility] [address] [place] [address] DM f/up Pharm Med Clinic Comment on above: DM f/up Start: 09-03-2024 End: 09-03-2024 Patient encounter procedure 09/03/2024 1:00 PM EDT Office Visit Plastic Surgery [address] [address] Micki Marcelino MD [address] [place] [address] post op Plastic Surgery Comment on above: post op Start: 09-01-2024 End: 09-01-2024 ambulatory Sharad Navarro [facility] Laboratory Comment on above: CQMO BC/CMP QMO CBC/CMP(S) Start: 08-27-2024 End: 08-27-2024 ambulatory 08/27/2024 11:00 AM EDT OT/PT/Speech Visit [facility] Physical [facility] [address] [place] [address] Milagros Brown PT History of breast cancer [Z85.3] [facility] Physical Therapy [place] Comment on above: History of breast cancer [Z85.3] Start: 08-11-2024 End: 08-11-2024 Patient encounter procedure 08/11/2024 11:00 AM EDT [facility] [address] [phone] [facility] [address] [place] [address] DM f/up Pharm Med Clinic Comment on above: DM f/up Start: 08-07-2024 Hepatitis B surface antibody level LDL Cholesterol [facility] Start: 08-04-2024 End: 08-04-2024 ambulatory 08/04/2024 11:00 AM EDT Results Only Sharad [place] [facility] Laboratory [address] [place] [address] CQMO BC/CMP [facility] Laboratory Comment on above: CQMO BC/CMP Start: 08-03-2024 End: 08-03-2024 Patient encounter procedure 08/03/2024 10:20 AM EDT Office Visit Plastic Surgery [address] [place] [address] Micki Butler, FELICIA.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 [address] [place] [address] Seroma drainage Plastic Surgery Comment on above: Seroma drainage Start: 08-02-2024 DIABETES SCREEN DIABETES SCREEN [facility] Start: 07-15-2024 Annual PCP Team Chronic Disease Visit Annual PCP Team Chronic Disease Visit [facility] Start: 07-15-2024 End: 07-15-2024 Patient encounter procedure 07/15/2024 1:00 PM EDT Office Visit [facility] [address] [place] [address] Micki Butler APRN.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 [address] [place] [address] post op [facility] Comment on above: post op Start: 07-14-2024 BP Controlled (<130/80) BP Controlled (<130/80) [facility] in Start: 07-14-2024 End: 07-14-2024 Patient encounter procedure 07/14/2024 11:00 AM EDT [facility] [address] [phone] Tatianna Crook, [facility] [address] [place] [address] DM f/up Pharm Med Clinic Comment on above: DM f/up Start: 07-09-2024 End: 07-09-2024 ambulatory [facility] Laboratory Comment on above: CBC/CMP(S)* 3MO OV /LABS CBC/CMP (S)* Start: 07-08-2024 End: 07-08-2024 Patient encounter procedure 07/08/2024 11:30 AM EDT Appointment Radiology [address] [place] [address] Thyroid nodule [E04.1] Radiology Comment on above: Thyroid nodule [E04.1] Start: 07-08-2024 End: 07-08-2024 ambulatory 07/08/2024 11:15 AM EDT Results Only Sharad [facility] Laboratory [address] [place] [address] CBC/CMP(S)* [facility] Laboratory Comment on above: CBC/CMP(S)* Start: 07-07-2024 End: 10-06-2024 CBC W Auto Differential panel - Blood COMPLETE BLOOD COUNT AND DIFFERENTIAL Lab Routine 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) Expected: 07/07/2024, Expires: 10/06/[address] [facility] Work Phone: Comment on above: Expected: 07/07/2024, Expires: Start: 07-07-2024 End: 10-06-2024 Comprehensive metabolic 2000 panel - Serum or Plasma [facility] Work Phone: Comment on above: Expected: 07/07/2024, Expires: Start: 07-07-2024 End: 10-06-2024 Hemoglobin A1c in Blood HEMOGLOBIN A1C Lab Routine Poorly control type 2 diabetes mellitus (HCC) Expected: 07/07/2024, Expires: 10/06/2024 [facility] Comment on above: Expected: 07/07/2024, Expires: Start: 07-07-2024 End: 10-06-2024 LIPID PANEL, NONFASTING LIPID PANEL, NONFASTING Lab Routine Poorly control type 2 diabetes mellitus (HCC) Expected: 07/07/2024, Expires: 10/06/2024 [facility] Comment on above: Expected: 07/07/2024, Expires: Start: 07-07-2024 End: 10-06-2024 Microalbumin/Creatinine [Mass Ratio] in Urine ALBUMIN/CREATININE RATIO, URINE Lab Routine Poorly control type 2 diabetes mellitus (HCC) Expected: 07/07/2024, Expires: 10/06/2024 [facility] Comment on above: Expected: 07/07/2024, Expires: Start: 07-06-2024 End: 07-06-2024 Patient encounter procedure 07/06/2024 10:20 AM EDT Office Visit Plastic Surgery [id number] [place] [address] Micki Butler APRN.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 [address] [place] [address] post op Plastic Surgery Comment on above: post op Start: 06-30-2024 End: 06-30-2024 Patient encounter procedure Mobile PET CT Comment on above: Malignant neoplasm of left breast in fem nicolette, estrogen receptor positive, unspecified site of breast (HCC) [C50.912, Z17.0] Start: 06-25-2024 End: 06-25-2024 Patient encounter procedure 06/25/2024 1:00 PM EDT Office Visit Plastic Surgery [address] [address] Micki Marcelino MD [address] [place] [address] drain removal Plastic Surgery Comment on above: drain removal Start: 06-16-2024 End: 06-16-2024 Patient encounter procedure 06/16/2024 10:30 AM EDT Distance [facility] Pharm Med Clinic [address] [phone] [facility] [address] [place] [address] DM f/up Pharm Med Clinic Comment on above: DM f/up Start: 06-11-2024 End: 06-11-2024 Admission to same day surgery center 06/11/2024 10:20 AM EST Distance [facility] Plastic Surgery [address] [address] Mino Beard, 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.[facility] [address] [address] post op - virtual Plastic Surgery Comment on above: post op - virtual Start: 06-05-2024 End: 06-05-2024 Patient encounter procedure 06/05/2024 8:40 AM EST Office Visit Internal Medicine Sharad [address] [place], [place] [phone] Cathy Burr, FELICIA.FORM BLOCK MAKER [address] [place] [address] follow up Internal Medicine Sharad Comment on above: follow up Start: 06-04-2024 End: 06-04-2024 Patient encounter procedure Internal Medicine Sharad Comment on above: follow up drain removal Start: 06-03-2024 BP Controlled (<130/80) BP Controlled (<130/80) [facility] Start: 05-29-2024 End: 05-29-2024 Patient encounter procedure 05/29/2024 10:40 AM EST Office Visit Plastic Surgery [address] [place] [address] Mino Beard APRN.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 [address] [place] [address] drain removal Plastic Surgery Comment on above: drain removal Start: 05-27-2024 End: 05-27-2024 Patient encounter procedure Breast Center Comment on above: post op post op Start: 05-26-2024 End: 08-25-2024 Basic metabolic 2000 panel - Serum or Plasma BASIC METABOLIC PANEL Lab Routine Palpitations Expected: 05/26/2024, Expires: 08/25/[address] [facility] Work Phone: Comment on above: Expected: 05/26/2024, Expires: Start: 05-26-2024 End: 08-25-2024 Thyrotropin [Units/volume] in Serum or Plasma THYROID STIMULATING HORMONE Lab Routine Palpitations Expected: 05/26/2024, Expires: 08/25/2024 [facility] Comment on above: Expected: 05/26/2024, Expires: Start: 05-26-2024 End: 05-26-2024 Patient encounter procedure 05/26/2024 9:40 AM EST Office Visit Internal Medicine [place] [address] [place] [address] Cathy Burr APRN.FORM BLOCK MAKER [address] [place] [address] [facility] ER F/U 05/21/2024; Palpitations Internal Medicine [place] Comment on above: [facility] ER F/U 05/21/2024; Palpitations Start: 05-25-2024 End: 05-25-2024 Patient encounter procedure 05/25/2024 2:00 PM EST Office Visit Plastic Surgery [address] [address] Mino Beard 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.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 [address] [place] [address] post op surg 05/18 Plastic Surgery Comment on above: post op surg 05/18 Start: 05-18-2024 End: 05-18-2024 Mastectomy partial MASTECTOMY PARTIAL Malignant neoplasm of lower-outer quadrant of left breast of female, estrogen receptor positive (HCC) 05/18/2024 12:34 PM EST [facility] Start: 05-18-2024 End: 05-18-2024 Admission to same day surgery center Ambulatory Surgery Comment on above: MASTECTOMY SIMPLE REMOVAL IMPLANT DADA ST Start: 05-18-2024 End: 05-18-2024 Mastectomy simple complete [facility] Start: 05-18-2024 End: 05-18-2024 Periprosthetic capsulectomy breast [facility] Start: 05-18-2024 End: 05-18-2024 Removal intact mammary implant [facility] Start: 05-18-2024 Subsequent hospital visit by physician Ambulatory Surgery Comment on above: Malignant neoplasm of lower-outer quadra nt of left breast of female, estrogen receptor positive (HCC) [C50.512, Z17.0] Start: 05-13-2024 End: 05-13-2024 ambulatory 05/13/2024 8:45 AM EST OT/PT/Speech Visit [facility] Physical Therapy [address] [place] [address] Bobbi Vanegas PT Priority: Routine [facility] Physical Therapy Comment on above: Priority: Routine Start: 05-12-2024 End: 05-12-2024 Patient encounter procedure 05/12/2024 9:40 AM EST Office Visit Internal Medicine [place] [address] [place] [address] Cathy Burr APRN.FORM BLOCK MAKER [address] [place] [address] follow up Internal Medicine [place] Comment on above: follow up Start: 05-11-2024 End: 05-11-2024 Nursing evaluation of patient and report 05/11/2024 9:30 AM EST Nurse Visit [facility] [address] [place] [address] Bianca Addison, FE PRE OP TEACHING W/ BIANCA [facility] Comment on above: PRE OP TEACHING W/ BIANCA Start: 05-08-2024 Annual PCP Team Chronic Disease Visit Annual PCP Team Chronic Disease Visit [facility] Start: 05-08-2024 BP Controlled (<130/80) BP Controlled (<130/80) [facility] Start: 05-07-2024 End: 05-07-2024 Patient encounter procedure Plastic Surgery Comment on above: POST OP SURG 05/01 cough congestion and check BP Start: 05-06-2024 End: 05-06-2024 ambulatory 05/06/2024 9:45 AM EST OT/PT/Speech Visit [facility] Physical Therapy [address] [place] [address] Bobbi Vanegas PT Priority: Routine [facility] Physical Therapy Comment on above: Priority: Routine Start: 05-05-2024 End: 05-05-2024 Patient encounter procedure 05/05/2024 10:30 AM EST [facility] Pharm Med Clinic [address] [phone] Tatianna Crook [facility] [address] [place] [address] DM f/up Pharm Med Clinic Comment on above: DM f/up Start: 05-04-2024 End: 05-04-2024 Anesthesia consultation 05/04/2024 11:00 AM EST PAT Pre Anesthesia [address] [place] [address] VIRTUAL PACC Pre Anesthesia Comment on above: [facility] Start: 04-28-2024 End: 07-28-2024 INFLUENZA A&B MOLECULAR (POC) INFLUENZA A&B MOLECULAR (POC) Microbiology Routine Acute cough Expected: 04/28/2024, Expires: 07/28/[address] [facility] Work Phone: Comment on above: Expected: 04/28/2024, Expires: Start: 04-24-2024 End: 04-24-2024 ambulatory 04/24/2024 11:00 AM EST OT/PT/Speech Visit [facility] Physical Therapy [address] [place] [address] Lemon, Bobbi, PT Malignant neoplasm of lower-outer quadrant of left breast of female, estrogen receptor positive (HCC) [C50.512, Z17.0] [facility] Physical Therapy Comment on above: Malignant neoplasm of lower-outer quadra nt of left breast of female, estrogen receptor positive (HCC) [C50.512, Z17.0] Start: 04-15-2024 End: 04-15-2024 Patient encounter procedure 04/15/2024 12:15 PM EST Office Visit Endocrinology [address] [place] [address] Daisy Titus, 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.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 [address] [place] [address] 2 MTH F/U Endocrinology Comment on above: 2 MTH F/U Start: 04-13-2024 End: 04-13-2024 ambulatory 04/13/2024 3:00 PM EST Infusion Center Hematology/Oncology [address] [place] [address] Q6MO ZOMETA /MDCR Hematology/Oncology Comment on above: Q6MO ZOMETA /MDCR Start: 04-13-2024 End: 04-13-2024 Patient encounter procedure 04/13/2024 10:00 AM EST Appointment [facility] [address] [place] [address] Malignant neoplasm of left breast in female, estrogen receptor positive, unspecified site of breast (HCC) [C50.912, Z17.0] [facility] Comment on above: Malignant neoplasm of left breast in fem nicolette, estrogen receptor positive, unspecified site of breast (HCC) [C50.912, Z17.0] Start: 04-10-2024 End: 04-10-2024 ambulatory [facility] Laboratory Comment on above: CBC/CMP(S)* 3MO OV /LABS CBC/CMP * Start: 04-08-2024 Advance Directive Discussion Advance Directive Discussion [facility] Start: 04-06-2024 End: 04-06-2024 Patient encounter [...] 1:00 PM EST Office Visit Internal Medicine [place] [address] [place], [place] [phone] Jacinta Rivas MD [address] [place] [address] Wellness Internal Medicine [place] Comment on above: Wellness Start: 03-11-2024 Annual PCP Team Chronic Disease Visit Annual PCP Team Chronic Disease Visit [facility] Start: 02-26-2024 End: 02-26-2024 Patient encounter procedure Breast Center Comment on above: REGROUP - STAFF MESSAGE CONSULTATION REMOVE IMPLANTS - STAFF MESSAGE REGROUP - STAFF [facility] Imaging per Delonte penny Start: 02-25-2024 End: 02-25-2024 Patient encounter procedure 02/25/2024 1:00 PM EST [facility] Pharm Med [facility] [address] [phone] [facility] [address] [place] [address] DM f/up Pharm Med Clinic Comment on above: DM f/up Start: 02-18-2024 End: 02-18-2024 Patient encounter procedure 02/18/2024 9:40 AM EST Appointment [facility] [address] [place] [address] BREAST MRI [facility] Comment on above: BREAST MRI Start: 02-16-2024 DIABETES SCREEN DIABETES SCREEN [facility] Start: 02-07-2024 Advance Directive Discussion Advance Directive Discussion [facility] Start: 02-07-2024 Screening for osteoporosis Bone Density Screening [facility] Start: 02-05-2024 End: 02-05-2024 Patient encounter procedure 02/05/2024 2:00 PM EDT Office Visit Endocrinology [address] [place] [address] Daisy Titus APRN.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 [address] [place] [address] Type 2 diabetes mellitus with other specified [...] Annual Wellness Visit Medicare Annual Wellness Visit [facility] Start: 01-07-2024 End: 01-07-2024 Patient encounter procedure 01/07/2024 1:00 PM EDT [facility] Med [facility] [address] [phone] [facility] [address], [place] [phone] DM f/up Pharm Med Clinic Comment on above: DM f/up Start: 01-06-2024 End: 01-06-2024 ambulatory Sharad [place] [facility] Laboratory Comment on above: CBC/CMP* 2 MO OV/LABS EARLY/P ET AFFINITOR* Start: 01-01-2024 End: 01-01-2024 Patient encounter procedure 01/01/2024 1:00 PM EDT [facility] [address] [phone] [facility] [address] [place] [address] DM f/up Pharm Med Clinic Comment on above: DM f/up Start: 12-30-2023 End: 12-30-2023 Patient encounter procedure Mobile PET CT Comment on above: Carcinoma of left breast metastatic to s kin (HCC) [C50.912, C79.2] Start: 12-18-2023 BP CONTROLLED (<130/80) BP CONTROLLED (<130/80) [facility] Start: 12-08-2023 Covid-19 Vaccine ( season) Covid-19 Vaccine () [facility] Start: 12-08-2023 Covid-19 Vaccine () Covid-19 Vaccine () [facility] Start: 12-08-2023 Influenza vaccination Influenza Vaccine (#1) [facility] Start: 11-26-2023 End: 11-26-2023 Patient encounter procedure 11/26/2023 1:30 PM EDT [facility] Pharm Med [facility] [address] [phone] [facility] [address], [place] [phone] DM f/up Pharm Med Clinic Comment on above: DM f/up Start: 11-19-2023 End: 11-19-2023 Patient encounter procedure 11/19/2023 10:00 AM EDT Appointment [facility] [address] [place] [phone] Right upper quadrant pain [R10.11] [facility] Comment on above: Right upper quadrant pain [R10.11] Start: 11-11-2023 End: 02-10-2024 Bacteria identified in Urine by Culture [facility] Work Phone: Comment on above: Expected: 11/11/2023, Expires: Start: 11-11-2023 End: 11-11-2023 ambulatory Sharad Navarro [facility] Laboratory Comment on above: LIPID(FASTING)/(SO) CBC/CMP* 3 MO OV/LAB EARLY* Start: 10-30-2023 End: 10-30-2023 Patient encounter procedure 10/30/2023 2:00 PM EDT [facility] [address] [phone] [facility] [address], [place] [phone] DM f/up Pharm Med Clinic Comment on above: DM f/up Start: 10-23-2023 End: 01-22-2024 Urinalysis complete panel - Urine URINALYSIS, WITH MICROSCOPIC Lab Routine Acute cystitis with hematuria Expected: 10/23/2023, Expires: 01/22/[address] [facility] Work Phone: Comment on above: Expected: 10/23/2023, Expires: Start: 10-15-2023 Hemoglobin A1c measurement HbA1C [facility] Start: 10-08-2023 Lipid 1996 panel - Serum or Plasma Lipid Screening [facility] Start: 10-08-2023 Lipid panel Lipid Screening [facility] Start: 10-08-2023 LIPID SCREEN LIPID SCREEN [facility] Start: 10-08-2023 End: 10-08-2023 Patient encounter procedure 10/08/2023 10:00 AM EDT [facility] [address] [phone] [facility] [address] [place] [address] DM f/up Pharm Med Clinic Comment on above: DM f/up Start: 09-30-2023 End: 09-30-2023 ambulatory 09/30/2023 8:00 AM EDT Results Only Sharad Navarro [facility] Laboratory [address] [place] [address] QMO CBC/CMP Sharad [place] [facility] Laboratory Comment on above: QMO CBC/CMP Start: 09-21-2023 BP CONTROLLED (<130/80) BP CONTROLLED (<130/80) [facility] Start: 09-05-2023 End: 09-05-2023 Patient encounter procedure 09/05/2023 10:00 AM EDT Office Visit Pharm Med Clinic [address] [place] [address] Paneccasio, [facility] [address], [place] [phone] DM f/up Pharm Med Clinic Comment on above: DM f/up Start: 08-30-2023 End: 08-30-2023 [facility] Sharad [facility] Laboratory Comment on above: QMO CBC/CMP QMO CBC/CMP(S) Start: 08-27-2023 End: 08-27-2023 Patient encounter procedure 08/27/2023 9:40 AM EDT Office Visit Cardiology [address] [place] [address] 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, T45.1X5A]; Encounter for monitoring cardiotoxic drug therapy [Z51.81, Z79.899] Cardiology Comment on above: Chemotherapy-induced cardiomyopathy (HCC ) [I42.7, T45.1X5A]; Encounter for monitoring cardiotoxic drug therapy [Z51.81, Z79.899] Start: 08-22-2023 End: 08-22-2023 Patient encounter procedure 08/22/2023 10:30 AM EDT Office Visit [facility] [address] [place] [address] [facility] [address] [place] [address] DM f/up [facility] Comment on above: DM f/up Start: 08-20-2023 End: 08-20-2023 Patient encounter procedure 08/20/2023 1:50 PM EDT Office Visit Cardiology [address] [place] [address] 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, T45.1X5A]; Encounter for [...] Patient encounter procedure 08/13/2023 9:00 AM EDT [facility] [address] [id number] [facility] [address] [place] [address] DM f/up; discuss Ozempic start [facility] Comment on above: DM f/up; discuss Ozempic start Start: 08-12-2023 End: 08-12-2023 Patient encounter procedure Mobile PET CT Comment on above: Malignant neoplasm of lower-outer quadra nt of left breast of female, estrogen receptor positive (HCC) [C50.512, Z17.0] Start: 08-10-2023 BP CONTROLLED (<130/80) BP CONTROLLED (<130/80) [facility] in Start: 08-08-2023 End: 08-08-2023 ambulatory 08/08/2023 8:30 AM EDT Results Only [facility] [address] [place] [address] LIPID* [facility] Comment on above: LIPID* Start: 08-05-2023 End: 11-04-2023 Lipid 1996 panel - Serum or Plasma LIPID PANEL BASIC Lab Routine Chemotherapy-induced cardiomyopathy (HCC) Expected: 08/05/2023, Expires: 11/04/[address] [facility] Work Phone: Comment on above: Expected: 08/05/2023, Expires: Start: 08-02-2023 BP CONTROLLED (<130/80) BP CONTROLLED (<130/80) [facility] in Start: 07-08-[address] [facility] Start: 07-08-2023 Bacteria identified in Urine by Culture [facility] Start: 06-03-2023 End: 09-02-2023 CYSTATIN C CYSTATIN C Lab Routine Malignant neoplasm of left breast in female, estrogen receptor positive, unspecified site of breast (HCC) (HCC) 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) Expected: 06/03/2023, Expires: 09/02/[address] [facility] Work Phone: Comment on above: Expected: 06/03/2023, Expires: 4 Start: 06-03-2023 End: 09-02-2023 Magnesium [Mass/volume] in Serum or Plasma MAGNESIUM BLD Lab STAT Malignant neoplasm of left breast in female, estrogen receptor positive, unspecified site of breast (HCC) (HCC) 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) Expected: 06/03/2023, Expires: 09/02/[address] [facility] Work Phone: Comment on above: Expected: 06/03/2023, Expires: Start: 06-03-2023 End: 09-02-2023 Phosphate [Mass/volume] in Serum or Plasma PHOSPHORUS INORGANIC Lab Routine Malignant neoplasm of left breast in female, estrogen receptor positive, unspecified site of breast (HCC) (HCC) 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) Expected: 06/03/2023, Expires: 09/02/[address] [facility] Work Phone: Comment on above: Expected: 06/03/2023, Expires: Start: 05-31-2023 Mammography [facility] Start: 05-31-2023 Screening for malignant neoplasm of breast Mammogram Screening [facility] Start: 04-08-2023 Behavioral Health Screening Behavioral Health Screening [facility] Start: 04-08-2023 Depression Assessment Depression Assessment [facility] Start: 03-04-2023 HPV TESTING HPV TESTING [facility] Start: 03-04-2023 PAP TESTING PAP TESTING [facility] Start: 03-04-2023 Screening for malignant neoplasm of cervix [facility] Start: 02-19-2023 ANNUAL PCP TEAM CHRONIC DISEASE VISIT ANNUAL PCP TEAM CHRONIC DISEASE VISIT [facility] Start: 02-19-2023 BP CONTROLLED (<130/80) BP CONTROLLED (<130/80) [facility] Start: 02-19-2023 HEPATITIS A (1 of 2 - Risk 2-dose series) HEPATITIS A (1 of 2 - Risk 2-dose series) [facility] Comment on above: Postponed from [birth year]/07/1960 (Declined at t his time) Postponed from 02/06 (Declined at this time) Start: 02-19-2023 Hepatitis A Vaccine (1 of 2 - Risk 2-dose series) Hepatitis A Vaccine (1 of 2 - Risk 2-dose series) [facility] Comment on above: Postponed from 1978 (Declined at t his time) Start: 02-19-2023 HEPATITIS B (1 of 3 - Risk 3-dose series) HEPATITIS B (1 of 3 - Risk 3-dose series) [facility] Comment on above: Postponed from 2019 (Declined at t his time) Start: 02-19-2023 Hepatitis B Vaccine (1 of 3 - Risk 3-dose series) Hepatitis B Vaccine (1 of 3 - Risk 3-dose series) [facility] Comment on above: Postponed from 2019 (Declined at t his time) Start: 02-19-2023 SHINGRIX VACCINE (1 of 2) SHINGRIX VACCINE (1 of 2) [facility] Comment on above: Postponed from 2009 (Declined at t his time) Postponed from 02/06 (Declined at this time) Start: 02-19-2023 Urine microalbumin profile [facility] Comment on above: Postponed from 1978 (Declined at t his time) Start: 02-07-2023 End: 05-09-2023 Magnesium [Mass/volume] in Serum or Plasma MAGNESIUM BLD Lab STAT Malignant neoplasm of lower-outer quadrant of left breast of female, estrogen receptor positive (HCC) 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 Work Phone: Comment on above: Expected: 02/07/2023, Expires: 4 Start: 01-18-2023 BP CONTROLLED (<130/80) BP CONTROLLED (<130/80) [facility] Start: 12-20-2022 End: 02-19-2023 Basic metabolic 2000 panel - Serum or Plasma BASIC METABOLIC PNL Lab STAT Malignant neoplasm of lower-outer quadrant of left breast of female, estrogen receptor positive (HCC) 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) Expected: 12/20/2022, Expires: 02/19/[address] [facility] Work Phone: Comment on above: Expected: 12/20/2022, Expires: 3 Start: 12-07-2022 Covid-19 Vaccine () Covid-19 Vaccine () [facility] Start: 12-07-2022 Influenza vaccination [facility] Start: 11-28-2022 End: 01-28-2023 Chronic hepatitis differentiation between hepatitis B and C virus panel - Serum or Plasma HEP REMOTE PANEL BL Lab Routine Carcinoma of left breast metastatic to skin (HCC) Expected: 11/28/2022, Expires: 01/28/[address] 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 Work Phone: Comment on above: Expected: 11/15/2022, Expires: 3 Start: 11-06-2022 End: 01-06-2023 Basic metabolic 2000 panel - Serum or Plasma BASIC METABOLIC PNL Lab STAT Malignant neoplasm of lower-outer quadrant of left breast of female, estrogen receptor positive (HCC) 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) Expected: 11/06/2022, Expires: 01/06/[address] [facility] Work Phone: Comment on above: Expected: 11/06/2022, Expires: 3 Start: 11-01-2022 End: 01-01-2023 CBC W Auto Differential panel - Blood CBC + DIFF Lab Routine Malignant neoplasm of lower-outer quadrant of left breast of female, estrogen receptor positive (HCC) Carcinoma of left breast metastatic to skin (HCC) Expected: 11/01/2022, Expires: 01/01/[address] [facility] Work Phone: Comment on above: Expected: 11/01/2022, Expires: 3 Start: 11-01-2022 End: 01-01-2023 Magnesium [Mass/volume] in Serum or Plasma MAGNESIUM BLD Lab STAT Malignant neoplasm of lower-outer quadrant of left breast of female, estrogen receptor positive (HCC) Carcinoma of left breast metastatic to skin (HCC) Expected: 11/01/2022, Expires: 01/01/[address] [facility] Work Phone: Comment on above: Expected: 11/01/2022, Expires: 3 Start: 11-01-2022 End: 01-01-2023 Phosphate [Mass/volume] in Serum or Plasma PHOSPHORUS INORGANIC Lab Routine Malignant neoplasm of lower-outer quadrant of left breast of female, estrogen receptor positive (HCC) Carcinoma of left breast metastatic to skin (HCC) Expected: 11/01/2022, Expires: 01/01/[address] [facility] Work Phone: Comment on above: Expected: 11/01/2022, Expires: 3 Start: 08-02-2022 BP CONTROLLED (<130/80) BP CONTROLLED (<130/80) [facility] Start: 07-31-2022 Adult depression screening assessment DEPRESSION SCREENING [facility] Start: 07-04-2022 End: 09-03-2022 CBC W Auto Differential panel - Blood CBC + DIFF Lab STAT Malignant neoplasm of lower-outer quadrant of left breast of female, estrogen receptor positive (HCC) Expected: 07/04/2022, Expires: 09/03/[address] [facility] Work Phone: Comment on above: Expected: 07/04/2022, Expires: 3 Start: 07-04-2022 End: 09-03-2022 Comprehensive metabolic 2000 panel - Serum or Plasma COMP METABOLIC PANEL Lab STAT Malignant neoplasm of lower-outer quadrant of left breast of female, estrogen receptor positive (HCC) Expected: 07/04/2022, Expires: 09/03/[address] [facility] Work Phone: Comment on above: Expected: 07/04/2022, Expires: 3 Start: 04-08-2022 DEPRESSION ASSESSMENT DEPRESSION ASSESSMENT [facility] Start: 02-15-2022 BP CONTROLLED (<130/80) BP CONTROLLED (<130/80) [facility] Start: 02-13-2022 ANNUAL PCP TEAM CHRONIC DISEASE VISIT ANNUAL PCP TEAM CHRONIC DISEASE VISIT [facility] Start: 02-13-2022 SHINGRIX VACCINE (1 of 2) SHINGRIX VACCINE (1 of 2) [facility] Comment on above: Postponed from 2009 (Declined at t his time) Postponed from 02/06 (Declined at this time) Start: 12-07-2021 Influenza vaccination INFLUENZA (#1) [facility] Start: 08-02-2021 End: 10-02-2021 CBC W Auto Differential panel - Blood CBC + DIFF Lab STAT Malignant neoplasm of left breast in female, estrogen receptor positive, unspecified site of breast (HCC) Nontoxic single thyroid nodule Expected: 08/02/2021, Expires: 10/02/[address] [facility] Work Phone: Comment on above: Expected: 08/02/2021, Expires: 2 Start: 08-02-2021 End: 10-02-2021 Comprehensive metabolic 2000 panel - Serum or Plasma COMP METABOLIC PANEL Lab Routine Malignant neoplasm of left breast in female, estrogen receptor positive, unspecified site of breast (HCC) Nontoxic single thyroid nodule Expected: 08/02/2021, Expires: 10/02/[address] [facility] Work Phone: Comment on above: Expected: 08/02/2021, Expires: 2 Start: 06-20-2021 COVID-19 VACCINE (4 - Booster for Moderna series) COVID-19 VACCINE (4 - Booster for Moderna series) [facility] Start: 05-17-2021 COVID-19 VACCINE (4 - Booster for Moderna series) COVID-19 VACCINE (4 - Booster for Moderna series) [facility] Start: 05-17-2021 COVID-19 VACCINE (4 - Moderna series) COVID-19 VACCINE (4 - Moderna series) [facility] Start: 04-08-2021 DEPRESSION ASSESSMENT DEPRESSION ASSESSMENT [facility] Start: 02-27-2020 Mammography MAMMOGRAM [facility] Start: 10-08-2019 Hepatitis B surface antibody level LDL Cholesterol [facility] Start: 03-04-2019 Screening for malignant neoplasm of cervix Cervical Cancer Screening [facility] Start: 2019 HEPATITIS B (1 of 3 - Risk 3-dose series) HEPATITIS B (1 of 3 - Risk 3-dose series) [facility] Start: 2019 Hepatitis B Vaccine (1 of 3 - Risk 3-dose series) Hepatitis B Vaccine (1 of 3 - Risk 3-dose series) [facility] Start: 2019 RSV Vaccine (1 - 1-dose 60+ series) RSV Vaccine (1 - 1-dose 60+ series) [facility] Start: 2019 RSV Vaccine (1 - Risk 60-74 years 1-dose series) RSV Vaccine (1 - Risk 60-74 years 1-dose series) [facility] Start: 03-14-2017 Provider Instructions for Treatment [facility] Work Phone: Start: 02-11-2017 Provider Instructions for Treatment [facility] Work Phone: Start: 02-11-2017 Cytp cerv/vag auto thin layer prep mnl screen Thin prep Pap (07711) (no STD testing) [facility] Work [...] imfluor stain ea Influenza A&B Viral Culture (99983) [facility] Work Phone: Start: 10-18-2014 Provider Instructions for Treatment Follow up if no improvement or if symptoms worsen [facility] Work Phone: Start: 10-18-2014 ALP enzyme act/vol ALKALINE PHOSPHATASE (95093) [facility] Work Phone: Start: 10-18-2014 Comprehensive metabolic panel Metabolic Panel, Comprehensive (27402) [facility] Work Phone: Start: 10-18-2014 Hepatic function panel HEPATIC FUNCTION PANEL (46000) [facility] Work Phone: Start: 10-18-2014 Lipid panel Lipid Panel (08307) [facility] Work Phone: Start: 07-16-2014 Provider Instructions for Treatment Follow up in 3 months gen med KF [facility] Work Phone: Start: 07-02-2014 Provider Instructions for Treatment [facility] Work Phone: Start: 03-19-2014 Provider Instructions for Treatment [facility] Work Phone: Start: 03-02-2014 Urine albumin quantitative MICROALBUMIN: CREATININE RATIO (40816) AND (34801) [facility] Work Phone: Start: 03-02-2014 Urinalysis qual/semiquant except immunoassays URINALYSIS (18599) [facility] Work Phone: Start: 03-02-2014 Thyrotropin Qn TSH (41129) [facility] Work Phone: Start: 03-02-2014 Blood count manual cell count each CBC WITH MANUAL DIFF (11188) [facility] Work Phone: Start: 03-02-2014 Comprehensive metabolic panel Metabolic Panel, Comprehensive (77328) [facility] Work Phone: Start: 03-02-2014 Lipid panel Lipid Panel (92003) [facility] Work Phone: Start: 11-30-2013 Patient Education Mammogram *: gynecological health [facility] Work Phone: Start: 11-30-2013 Provider Instructions for Treatment [facility] Work Phone: Start: 11-30-2013 Blood occult fecal hgb deter ia qual feces 1-3 FECAL OCCULT HGB ASSAY- tubes sent home (84163) [facility] Work Phone: Start: 11-02-2013 Provider Instructions for Treatment *Colon Cancer Screening [facility] Work Phone: Start: 11-02-2013 Extractable nuclear antigen antibody any method Anti-Nona-1 (77751) [facility] Work Phone: Start: 10-19-2013 Fluorescent nonnfct agt antb screen ea antibody ASM (ANTI SMOOTH MUSCLE ANTIBODY) (36914) [facility] Work Phone: Start: 10-19-2013 Immunoassay analyte qual/semiqual multiple step ANTIMITOCHONDRIAL AB 6650 (10011) [facility] Work Phone: Start: 10-19-2013 Thyrotropin Qn TSH (THYROID STIMULATING HORMONE) (24328) [facility] Work Phone: Start: 10-19-2013 Amylase enzyme act/vol AMYLASE (98698) [facility] Work Phone: Start: 10-19-2013 Assay of lipase LIPASE (54502) [facility] Work Phone: Start: 10-14-2013 Provider Instructions for Treatment [facility] Work Phone: Start: 10-14-2013 Urine albumin quantitative MICROALBUMIN URINE QUANT (93481) [facility] Work Phone: Start: 01-15-2013 [...] Phone: Start: 03-26-2011 Lipid panel LIPID PANEL (17571) [facility] Work Phone: Start: 11-13-2010 Glucose mass conc Glucose, PP/2 Hour (85306) [facility] Work Phone: Start: 11-10-2010 Dna antibody ho-chunk/double stranded DNA ANTIBODY-NATV/DBL ST (50017) test code [id number] [facility] Work Phone: Start: 11-10-2010 Rheumatoid factor quantitative RHEUMATOID FACTOR-QUANT (35478) test code [id number] [facility] Work Phone: Start: 11-10-2010 Extractable nuclear antigen antibody any method [facility] Work Phone: Start: 11-10-2010 Protein mass conc ANTI-FIRER WATERTENDER (ANTI RIBONUCLEAR PROTEIN ANTIBODY) (98516) test code [id number] [facility] Work Phone: Start: 11-10-2010 Provider Instructions for Treatment [facility] Work Phone: Start: 10-10-2010 Provider Instructions for Treatment FOLLOW UP - MAKE APPT AFTER DIAGNOSTIC TESTS [facility] Work Phone: Start: 10-10-2010 Cyclic citrullinated peptide antibody CCP ANTIBODY (66099) [facility] Work Phone: Start: 10-10-2010 Sedimentation rate rbc non-automated SED RATE ERYTHROCYTE (59470) [facility] Work Phone: Start: 10-10-2010 Blood count manual cell count each CBC WITH MANUAL DIFF (92816) [facility] Work Phone: Start: 10-10-2010 CRP mass conc C-REACTIVE PROTEIN (49080) [facility] Work Phone: Start: 10-10-2010 Nuclear Ab IF titer (S) VINCENZO (ANTINUCLEAR ANTIBODY) (07098) [facility] Work Phone: Start: 10-10-2010 Rheumatoid factor quantitative RHEUMATOID FACTOR-QUANT (94039) [facility] Work Phone: Start: 10-10-2010 Thyrotropin Qn TSH (88145) [facility] Work Phone: Start: 10-10-2010 Comprehensive metabolic panel METABOLIC PANEL, COMPREHENSIVE (34990) [facility] Work Phone: Start: 09-19-2009 Provider Instructions for Treatment [facility] Work Phone: Start: 09-19-2009 Blood occult fecal hgb deter ia qual feces 1-3 FECAL OCCULT HGB ASSAY- tubes sent home (61496) [facility] Work Phone: Start: 09-09-2009 Provider Instructions for Treatment [facility] Work Phone: Start: 09-09-2009 Thyrotropin Qn TSH (00939) [facility] Work Phone: Start: 09-09-2009 Urnls dip stick/tablet reagent auto microscopy URINALYSIS, W/ MICRO (12311) [facility] Work Phone: Start: 09-09-2009 Urine albumin quantitative MICROALBUMIN: CREATININE RATIO (32361) AND (91837) [facility] Work Phone: Start: 09-09-2009 Comprehensive metabolic panel METABOLIC PANEL, COMPREHENSIVE (40602) [facility] Work Phone: Start: 09-09-2009 Lipid panel LIPID PANEL (93199) [facility] Work Phone: Start: 09-09-2009 Blood count manual cell count each CBC WITH MANUAL DIFF (23723) [facility] Work Phone: Start: 05-11-2008 Provider Instructions for Treatment [facility] Work Phone: Start: 09-04-2007 Provider Instructions for Treatment [facility] Work Phone: Start: 09-04-2007 Glucose mass conc Glucose, PP/2 Hour (35332) [facility] Work Phone: Start: 09-04-2007 Thyrotropin Qn TSH (92376) [facility] Work Phone: Start: 09-04-2007 Lipid panel LIPID PANEL (32898) [facility] Work Phone: Start: 03-07-2007 Provider Instructions for Treatment [facility] Work Phone: Start: 03-07-2007 Electrolyte panel Electrolyte Panel (02521) [facility] Work Phone: Start: 03-07-2007 Lipid panel LIPID PANEL (98340) [facility] Work Phone: Comment on above: do in 4-6 months Start: 07-18-2006 Provider Instructions for Treatment [facility] Work Phone: Start: 07-18-2006 Cytp cerv/vag auto thin layer prep mnl screen Thin prep Pap (52068) [facility] Work Phone: Start: 06-27-2006 CRP mass conc C-Reactive Protein (94721) [facility] Work Phone: Start: 06-27-2006 Urnls dip stick/tablet rgnt auto w/o microscopy URINALYSIS W/O MICRO (88989) [email or web address] Work Phone: Start: 06-27-2006 Thyrotropin Qn TSH (07945) [facility] [[email or web address] Work Phone: Start: 06-27-2006 Lipid panel LIPID PANEL (10487) [facility] [[email or web address] Work Phone: Start: 02-07-2004 COLOGUARD (FIT-DNA) COLOGUARD (FIT-DNA) [facility] Start: 02-07-2004 Colonoscopy COLONOSCOPY [facility] Start: 02-07-2004 COLORECTAL CANCER SCREENING COLORECTAL CANCER SCREENING [facility] Start: 02-07-[address] COLONOGRAPHY [facility] Start: 02-07-2004 FECAL OCCULT BLOOD FECAL OCCULT BLOOD [facility] Start: 02-07-2004 Screening for malignant neoplasm of colon [facility] Start: 02-07-2004 SIGMOIDOSCOPY SIGMOIDOSCOPY [facility] Start: 1978 Hepatitis A Vaccine (1 of 2 - Risk 2-dose series) Hepatitis A Vaccine (1 of 2 - Risk 2-dose series) [facility] Start: 1978 HEPATITIS B (1 of 3 - Risk 3-dose series) HEPATITIS B (1 of 3 - Risk 3-dose series) [facility] Start: 1978 Shingrix Vaccine (1 of 2) Shingrix Vaccine (1 of 2) [facility] Start: 1978 Urine microalbumin profile [facility] Start: 1977 Anxiety Screening Anxiety Screening [facility] Start: 1977 BP CONTROLLED (<130/80) BP CONTROLLED (<130/80) [facility] Start: 1977 Depression Screening Depression Screening [facility] Start: 1977 HIV SCREENING HIV SCREENING [facility] Start: 1969 Diabetic foot examination Diabetic Foot Exam [facility] Start: 1969 Glaucoma screening Dilated Retinal Exam [facility] Start: 1969 Hepatitis B screening Urine Albumin:Creatinine Ratio [facility] Start: 1965 PNEUMOCOCCAL (1 - PCV) PNEUMOCOCCAL (1 - PCV) [facility] Start: 02-07-1960 HEPATITIS A (1 of 2 - Risk 2-dose series) HEPATITIS A (1 of 2 - Risk 2-dose series) [facility] Antibody to lupus La protein measurement [facility] Antibody to SS-A measurement [facility] Bacteria identified in Urine by Culture URINE CULTURE Microbiology Routine Frequent urination Ordered: 02/05/[address] [facility] Work Phone: Comment on above: Ordered: 02/05/2022 Bacteria identified in Urine by Culture BACTERIAL CULTURE, URINE Microbiology Routine UTI symptoms 09/07/2024 2:30 PM EDT [facility] Work Phone: Bacteria identified in Urine by Culture BACTERIAL CULTURE, URINE Microbiology Routine Urinary frequency Renal insufficiency 09/22/2024 2:51 PM [facility] Work Phone: Bacteria identified in Urine by Culture BACTERIAL CULTURE, URINE Microbiology Routine Urinary tract infection with hematuria, site unspecified 10/26/2024 3:17 PM [facility] Work Phone: Bacteria identified in Urine by Culture BACTERIAL CULTURE, URINE Microbiology Routine UTI symptoms 12/15/2024 11:51 AM [facility] End: 12-16-2025 Bacteria identified in Urine by Culture BACTERIAL CULTURE, URINE Microbiology Routine Recurrent UTI Once per month for 12 Occurrences starting 12/16/2024 until 12/16/[address] [facility] Work Phone: Comment on above: Once per month for 12 Occurrences starti ng 12/16/2024 until 12/16/2025 Bacteria identified in Urine by Culture BACTERIAL CULTURE, URINE Microbiology Routine Recurrent UTI 12/16/2024 4:43 PM [facility] Bacteria identified in Wound by Culture BACTERIAL CULTURE AND GRAM STAIN, ABSCESS AND WOUND (AEROBIC CULTURE) Microbiology Routine Seroma of breast 06/25/2024 1:52 PM [facility] Work Phone: BREAST MARKERS BREAST MARKERS L ab Routine Malignant neoplasm of lower-outer quadrant of left breast of female, estrogen receptor positive (HCC) 07/19/2022 10:01 AM [facility] Work Phone: End: 09-05-2023 CBC W Auto Differential panel - Blood CBC + DIFF Lab STAT Malignant neoplasm of lower-outer quadrant of left breast of female, estrogen receptor positive (HCC) 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) Every other week for 26 Occurrences starting 09/05/2022 until 09/05/[address] [facility] Work Phone: Comment on above: Every other week for 26 Occurrences amy kaur 09/05/2022 until 09/05/2023 End: 11-28-2023 CBC W Auto Differential panel - Blood CBC + DIFF Lab STAT Carcinoma of left breast metastatic to skin (HCC) Every other week for 30 Occurrences starting 11/28/2022 until 11/28/[address] [facility] Work Phone: Comment on above: Every other week for 30 Occurrences amy kaur 11/28/2022 until 11/28/2023 End: 12-21-2025 CBC W Auto Differential panel - Blood COMPLETE BLOOD COUNT AND DIFFERENTIAL Lab Routine Malignant neoplasm of left breast in female, estrogen receptor positive, unspecified site of breast (HCC) Once per week for 3 Occurrences starting 12/21/2024 until 12/21/2025, [address] [facility] Work Phone: Comment on above: Once per week for 3 Occurrences starting 12/21/2024 until 12/21/2025, 1 completed End: 09-05-2023 Comprehensive metabolic 2000 panel - Serum or Plasma COMP METABOLIC PANEL Lab STAT Malignant neoplasm of lower-outer quadrant of left breast of female, estrogen receptor positive (HCC) 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) Every other week for 26 Occurrences starting 09/05/2022 until 09/05/[address] [facility] Work Phone: Comment on above: Every other week for 26 Occurrences amy kaur 09/05/2022 until 09/05/2023 End: 11-28-2023 Comprehensive metabolic 2000 panel - Serum or Plasma COMP METABOLIC PANEL Lab STAT Carcinoma of left breast metastatic to skin (HCC) Every other week for 30 Occurrences starting 11/28/2022 until 11/28/[address] [facility] Work Phone: Comment on above: Every other week for 30 Occurrences amy kaur 11/28/2022 until 11/28/2023 End: 12-21-2025 Comprehensive metabolic 2000 panel - Serum or Plasma COMPREHENSIVE METABOLIC PANEL Lab Routine Malignant neoplasm of left breast in female, estrogen receptor positive, unspecified site of breast (HCC) Once per week for 3 Occurrences starting 12/21/2024 until 12/21/2025, 1 completed [facility] Comment on above: Once per week for 3 Occurrences starting 12/21/2024 until 12/21/2025, [address] angiography of coronary arteries [facility] CYSTATIN C CYSTATIN C Lab R outine LAXMI (acute kidney injury) (HCC) 12/26/2022 2:54 PM EDT [facility] Work Phone: Cysto w/insert urete ral stent INSERTION STENT DOUBLE J Renal stones MR OR DNA double strand Ab [Units/volume] in Serum [facility] End: 08-07-2023 ECG COMPLETE ECG COMPLETE ECG STAT Adenopathy 1 Occurrences starting 08/06/2022 until 08/07/[address] [facility] Work Phone: Comment on above: 1 Occurrences starting 08/06/2022 until 08/07/2023 End: 11-02-2023 ECG COMPLETE ECG COMPLETE ECG Routine Malignant neoplasm of lower-outer quadrant of left breast of female, estrogen receptor positive (HCC) Carcinoma of left breast metastatic to skin (HCC) 1 Occurrences starting 11/01/2022 until 11/02/[address] [facility] Work Phone: Comment on above: 1 Occurrences starting 11/01/2022 until 11/02/2023 End: 11-29-2023 ECG COMPLETE ECG COMPLETE ECG Routine Carcinoma of left breast metastatic to skin (HCC) Every other week for 2 Occurrences starting 11/28/2022 until 11/29/[address] [facility] Work Phone: Comment on above: Every other week for 2 Occurrences start ing 11/28/2022 until 11/29/2023 End: 08-04-2024 Echocardiography ECHO Cardiology Routine Chemotherapy-induced cardiomyopathy (HCC) Encounter for monitoring cardiotoxic drug therapy 1 Occurrences starting 08/05/2023 until 08/04/2024 [facility] Comment on above: 1 Occurrences starting 08/05/2023 until 08/04/2024 Guidance for placeme nt of CV catheter with port in Chest IR PORTOCATH PLACEMENT CONSULT Radiology Routine Malignant neoplasm of left breast in female, estrogen receptor positive, unspecified site of breast (HCC) 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 Work Phone: Comment on above: Ordered: 11/20/2024 Injection procedure lymphangiography INJECTION PROCEDURE LYMPHANGIOGRAPHY Lymphedema [facility] A60 Injection procedure lymphangiography INJECTION PROCEDURE LYMPHANGIOGRAPHY Lymphedema History of breast cancer History of breast reconstruction [facility] A60 Lithotripsy xtrcorp shock wave EXTRACORPOREAL SHOCKWAVE LITHOTRIPSY UNILATERAL Renal stones MR OR End: 11-28-2023 Magnesium [Mass/volume] in Serum or Plasma MAGNESIUM BLD Lab Routine Carcinoma of left breast metastatic to skin (HCC) Once per month for 6 Occurrences starting 11/28/2022 until 11/28/[address] [facility] Work Phone: Comment on above: Once per month for 6 Occurrences startin g 11/28/2022 until 11/28/2023 Magnesium measurement [facility] End: 03-28-2025 MG Breast - right Diagnostic for implant SAMANTHA DIAGNOSTIC RIGHT Radiology Routine Malignant neoplasm of lower-outer quadrant of left breast of female, estrogen receptor positive (HCC) 1 Occurrences starting 02/27/2024 until 03/28/[address] [facility] Work Phone: Comment on above: 1 Occurrences starting 02/27/2024 until 03/28/2025 Microsurg tqs req us e operating microscope MICROSURGICAL TECHNIQUES REQUIRING MICROSCOPE Lymphedema History of breast cancer History of breast reconstruction [facility] A60 End: 02-04-2025 MR Breast - bilateral WO and W contrast IV MRI BREAST WO/W IVCON BILATERAL Radiology Routine Malignant neoplasm of lower-outer quadrant of left breast of female, estrogen receptor positive (HCC) 1 Occurrences starting 01/06/2024 until 02/04/[address] [facility] Work Phone: Comment on above: 1 Occurrences starting 01/06/2024 until 02/04/2025 MR Breast - bilatera l WO and W contrast IV MRI BREAST WO/W IVCON BILATERAL Radiology Routine Malignant neoplasm of lower-outer quadrant of left breast of female, estrogen receptor positive (HCC) 02/18/2024 10:51 AM EST [facility] Work Phone: End: 08-02-2022 Mri brain brain stem w/o w/contrast material [facility] Work Phone: Comment on above: 1 Occurrences starting 08/02/2022 until 08/02/2022 End: 02-04-2025 MRI BREAST 3D POST PROCESSING MRI BREAST 3D POST PROCESSING Radiology Routine Malignant neoplasm of lower-outer quadrant of left breast of female, estrogen receptor positive (HCC) 1 Occurrences starting 01/06/2024 until 02/04/2025 [facility] Comment on above: 1 Occurrences starting 01/06/2024 until 02/04/2025 MRI BREAST 3D POST PROCESSING MRI BREAST 3D POST PROCESSING Radiology Routine Malignant neoplasm of lower-outer quadrant of left breast of female, estrogen receptor positive (HCC) 02/18/2024 10:54 AM EST [facility] End: 08-31-2023 MRI BREAST WO/W IVCON BILATERAL MRI BREAST WO/W IVCON BILATERAL Radiology Routine Malignant neoplasm of lower-outer quadrant of left breast of female, estrogen receptor positive (HCC) 1 Occurrences starting 08/01/2022 until 08/31/[address] [facility] Work Phone: Comment on above: 1 Occurrences starting 08/01/2022 until 08/31/2023 Neutrophil cytoplasm ic Ab.classic [Units/volume] in Serum [facility] End: 02-08-2024 NM PET/CT SKULL-THIGH SUBSEQUENT NM [...] starting 01/09/2023 until 02/08/[address] [facility] Work Phone: Comment on above: 1 Occurrences starting 01/09/2023 until 02/08/2024 Nuclear Ab [Presence ] in Serum [facility] OUTSIDE VENDOR CARDI AC OUTPATIENT EXTENDED RHYTHM RECORDING (WITHOUT TELEMETRY) OUTSIDE VENDOR CARDIAC OUTPATIENT EXTENDED RHYTHM RECORDING (WITHOUT TELEMETRY) Holter Routine Palpitations Ordered: 05/26/[address] [facility] Work Phone: Comment on above: Ordered: 05/26/2024 OUTSIDE VENDOR CARDI AC OUTPATIENT EXTENDED RHYTHM RECORDING (WITHOUT TELEMETRY) OUTSIDE VENDOR CARDIAC OUTPATIENT EXTENDED RHYTHM RECORDING (WITHOUT TELEMETRY) Holter Routine Palpitations Ordered: 07/15/[address] [facility] Work Phone: Comment on above: Ordered: 07/15/2024 P-ANCA measurement [facility] Patient referral [facility] Work Phone: End: 09-03-2024 PET+CT Guidance for localization of tumor of Skull base to mid-thigh-- W 18F-FDG IV NM PET/CT SKULL-THIGH SUBSEQUENT Radiology Routine Malignant neoplasm of lower-outer quadrant of left breast of female, estrogen receptor positive (HCC) 1 Occurrences starting 08/05/2023 until 09/03/2024 [facility] Comment on above: 1 Occurrences starting [...] 08/19/2023 8:16 AM EDT 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 Work Phone: Comment on above: 1 [...] 04/06/2024 10:09 AM EST [facility] Work Phone: End: 05-13-2025 PET+CT Guidance for localization of tumor of Skull base to mid-thigh-- W 18F-FDG IV NM PET/CT SKULL-THIGH SUBSEQUENT Radiology Routine Malignant neoplasm of left breast in female, estrogen receptor positive, unspecified site of breast (HCC) 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 lymph node (HCC) 1 Occurrences starting 04/13/2024 until 05/13/[address] [facility] Work Phone: Comment on above: 1 Occurrences starting 04/13/2024 until 05/13/2025 End: 06-30-2024 PET+CT Guidance for localization of tumor of Skull base to mid-thigh-- W 18F-FDG IV [facility] Work Phone: Comment on above: 1 [...] starting 07/09/2024 until 08/08/[address] [facility] Work Phone: Comment on above: 1 [...] starting 10/30/2024 until 11/29/[address] 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 Work Phone: Comment on above: Once [...] starting 01/29/2023 until 02/28/[address] [facility] Work Phone: Comment on above: 1 Occurrences starting 01/29/2023 until 02/28/2024 SARS-CoV-2 (COVID-19 ) RNA [Presence] in Respiratory specimen by EMILIA with probe detection SELF CHECK COVID Microbiology Routine Adenopathy Ordered: 08/06/[address] [facility] Work Phone: Comment on above: Ordered: 08/06/2022 Suction assisted lipectomy upper extremity LIPOSUCTION EXTREMITY UPPER Lymphedema History of breast cancer History of breast reconstruction [facility] A60 SURGICAL PATHOLOGY SURGICAL PATH OLOGY Lab Routine Malignant neoplasm of lower-outer quadrant of left breast of female, estrogen receptor positive (HCC) 07/19/2022 10:01 AM EDT [facility] Work Phone: Tissue Pathology bio psy report [facility] Work Phone: Comment on above: Release Upon Ordering for 1 Occurrences starting 05/18/2024, 1 completed Unlisted procedure h emic or lymphatic system UNILATERAL LEVEL 6 LYMPH NODE DISSECTION Lymphedema History of breast cancer History of breast reconstruction [facility] A60 Urine culture [facility] End: 12-12-2024 US Abdomen RUQ US ABD RIGHT UPPER QUADRANT Radiology Routine Right upper quadrant pain 1 Occurrences starting 11/13/2023 until 12/12/[address] [facility] Work Phone: Comment on above: 1 Occurrences starting 11/13/2023 until 12/12/2024 US Abdomen RUQ US ABD RIGHT UPP ER QUADRANT Radiology Routine Right upper quadrant pain 11/19/2023 11:01 AM EDT [facility] Work Phone: End: 08-18-2023 US BIOPSY BREAST LEFT US BIOPSY BREAST LEFT Radiology Routine Abnormal ultrasound of breast 1 Occurrences starting 07/19/2022 until 08/18/[address] [facility] Work Phone: Comment on above: 1 Occurrences starting 07/19/2022 until 08/18/2023 End: 08-03-2023 US BREAST LTD LEFT US BREAST LTD LEFT Radiology Routine Malignant neoplasm of lower-outer quadrant of left breast of female, estrogen receptor positive (HCC) 1 Occurrences starting 07/04/2022 until 08/03/[address] [facility] Work Phone: Comment on above: 1 Occurrences starting 07/04/2022 until 08/03/2023 US [facility] End: 08-02-2025 US Thyroid gland US THYROID/PARATHYROID Radiology Routine Thyroid nodule 1 Occurrences starting 07/03/2024 until 08/02/[address] [facility] Work Phone: Comment on above: 1 Occurrences starting 07/03/2024 until 08/02/2025 US Thyroid gland US THYROID/PARA THYROID Radiology Routine Thyroid nodule 07/08/2024 11:41 AM EDT [facility] Work Phone: End: 05-10-2025 US Upper extremity vein - left US DVT UPPER LEFT Radiology Routine Malignant neoplasm of left breast in female, estrogen receptor positive, unspecified site of breast (HCC) Swelling of limb 1 Occurrences starting 04/10/2024 until 05/10/2025 [facility] Comment on above: 1 Occurrences starting [...] starting 04/10/2024 until 04/10/[address] [facility] Work Phone: Comment on above: 1 [...] Work Phone: [facility] Work Phone: [facility] c [facility] Immunizations Immunization Date Immunization Notes Care Provider [facility] 2023 influenza, seasonal, injectable Bianca Addison RN [facility] 2023 influenza virus vaccine, unspecified formulation Tatianna Crook [facility] Work Phone: [facility] 02-19-2022 influenza, injectabl e, quadrivalent, contains preservative Jacinta Rivas MD Work Phone: [facility] 02-19-2022 pneumococcal (PCV20) vaccine, 20 valent (PREVNAR 20) Jacinta Rivas MD Work Phone: [facility] 02-19-2022 pneumococcal Conjugate, unspecified formulation Jacinta Rivas MD Work Phone: [facility] Work Phone: 02-19-2022 influenza virus vaccine, unspecified formulation Serena Carrasco DO Work Phone: [facility] 02-13-2021 influenza, injectabl e, quadrivalent, contains preservative Serena Carrasco DO Work Phone: [facility] 01-27-2020 influenza, injectabl e, quadrivalent, preservative free Serena Carrasco DO Work Phone: [facility] Payers Date Payer Category Payer Self-pay [id number] 2024 Medicare [id number] 2023 Medicare [id number] 2023 Medicare [id number] 2021 Unknown 2021 Unknown [employer] PPO [id number] 2021-Present [phone] [address] [place] [address] PPO [id number] 2021 Unknown [id number] 2014 Private Health Insurance [id number] Private Health Insurance [id number] Unknown [id number] Unknown [id number] Unknown [id number] Unknown [id number] Unknown [id number] Unknown [id number] Unknown [id number] Unknown [id number] Unknown [id number] Unknown [id number] Unknown [id number] Unknown [id number] Unknown [id number] Social History Date Type Detail Facility Start: 02-10-2020 End: 08-23-2022 Alcohol Use Never smoker [facility] Work Phone: Comment on above: Occasional alcohol u se 0-1 QD 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 [facility] Work Phone: Comment on above: 08/29/11 Start: 04-19-2017 End: 11-15-2024 Tobacco smoking status NHIS Never smoked tobacco [facility] Start: 04-19-2017 End: 10-14-2024 Tobacco use and exposure Smokeless tobacco non-user [facility] Start: 02-15-2021 End: 12-16-2024 Alcohol intake Current drinker of alcohol (finding) [facility] Start: 02-11-2020 End: 03-01-2020 History SDOH Alcohol Frequency 2 [facility] Start: 02-11-2020 End: 03-01-2020 History SDOH Alcohol Std Drinks 1 [facility] Start: 02-23-2019 History SDOH Alcohol Comment occasional [facility] Start: 02-11-2020 History SDOH Social Connections Phone 5 [facility] Start: 02-11-2020 History SDOH Social Connections [facility] 3 [facility] Start: 02-11-2020 History SDOH Physica l Activity DPW 6 [facility] Start: 02-10-2020 Education 18 [facility] Start: 1960 Sex Assigned At Not on file [facility] Start: 11-29-2020 End: 02-19-2022 Exposure to SARS-CoV-2 (event) Not sure [facility] Start: 08-27-2021 End: 09-06-2021 Exposure to SARS-CoV-2 (event) Unable to assess [facility] Work Phone: Start: 04-23-2017 End: 07-08-2023 Tobacco smoking status TXIS Unknown if ever smoked [facility] Start: 1960 Sex Assigned At Female W [facility] Start: 02-10-2020 End: 08-23-2022 Social connection and isolation panel [facility] Do you belong to any clubs or organizations such as rastafari groups, unions, fraternal or athletic groups, or school groups? Yes [facility] Are you now , , , , never or living with a partner? [facility] How often to you hav e a drink containing alcohol? Monthly or less [facility] How many standard drinks containing alcohol do you have on a typical day? 1 or 2 [facility] How often do you hav e 6 or more drinks on 1 occasion? Never [facility] Start: 04-10-2017 How hard is it for y ou to pay for the very basics like food, housing, medical care, and heating Not hard at all [facility] Do you feel stress - tense, restless, nervous, or anxious, or unable to sleep at night because your mind is troubled all the time - these days [OSQ] To some extent [facility] The food that (I/we) bought just didn't last, and (I/we) didn't have money to get more. Never true [facility] In the past 12 month s, was there a time when you were not able to pay the mortgage or rent on time? No [facility] Start: 05-04-2024 Alcohol Comment 2 drinks per month C [facility] NEGATED: Highlighted rowStart: NINF History of tobacco use Passive smoker [facility] Medical Equipment Procedure Code Equipment Code Equipment Origin al Text Equipment Identifier Dates Matrix Alloderm Thick Acellular Dermis 95m96cm Tissue Allograft - [id number] Start: 10-08-2017 Trident Solidbac k Acetabular Shell 52mm E [id number] Start: 03-20-2019 Liner 36mm 0d E X3 5.9mm Acetabular Hip - [id number] Start: 03-20-2019 Head V40 36mm 0m m Offset Taper Biolox Delta Femoral Hip - [id number] Start: 03-20-2019 Stem Accolade Ii 4 127d Femoral - [id number] Start: 03-20-2019 Imp Brst 405cc S sm Lorraine Inspr - [id number] Start: 10-08-2017 Implant Natrelle Inspira Low Profile Silicone Breast Smooth Shell Surface - [id number] Start: 08-29-2018 Comment on above: Description: Natrell e inspira breast implant, smooth round low profile 230 cc PORT,6FR POWER PORT FDA Start: 04-24-2017 PORT,6FR POWER PORT FDA Start: 04-24-2017 [id number], [id number], [id number], [id number], [id number] Start: 07-18-2023 End: 08-10-2024 Comment on above: Use with blood gluco se test two times a day. Insulin Dep? No Use with blood gluco se test two times a day. Insulin Dep? No E11.65 PORT,6FR POWER PORT FDA Start: 04-24-2017 PORT,6FR POWER PORT FDA Start: 04-24-2017 PORT,6FR POWER PORT FDA Start: 04-24-[address] Plastic 8f Chronoflex Catheter With Kit - [id number] Start: 11-23-2024 PORT,6FR POWER PORT FDA Start: 04-24-2017 Goals Date Patient Goal Desired Activity /State Personal health goal Personal health goal Functional Status Date Assessment Result Facility 11-18-2024 Functional status Ambulates;Chair [facility] Work Phone: 05-07-2024 Total score [AUDIT-C] 1 05/07/19 2:27 PM EST Yuri Felix [facility] 05-07-2024 Within the last year , have you been humiliated or emotionally abused in other ways by your partner or ex-partner? No 05/07/2024 2:27 PM EST User, Mychart No [facility] 05-07-2024 Within the last year , have you been afraid of your partner or ex-partner? No 05/07/2024 2:27 PM EST User, Mychart No [facility] 05-07-2024 Within the last year , have you been raped or forced to have any kind of sexual activity by your partner or ex-partner? No 05/07/2024 2:27 PM EST User, Mychart No [facility] 05-07-2024 Within the last year , have you been kicked, hit, slapped, or otherwise physically hurt by your partner or ex-partner? No 05/07/2024 2:27 PM EST User, Mychart No [facility] 05-07-2024 How often to you hav e a drink containing alcohol? Monthly or less 05/07/2024 2:27 PM EST User, Mychart Monthly or less [facility] 05-07-[address] inks containing alcohol do you have on a typical day? 1 or 2 05/07/2024 2:27 PM EST User, Mychart 1 or 2 [facility] 05-07-2024 How often do you hav e 6 or more drinks on 1 occasion? Never 05/07/2024 2:27 PM EST User, Mychart Never [facility] 03-21-2019 Are you deaf, or do you have serious difficulty hearing No 03/21/2019 1:43 PM Rosendo Henry, FE No [facility] 03-21-2019 Are you blind, or do you have serious difficulty seeing, even when wearing glasses No 03/21/2019 1:43 PM Rosendo Henry, FE No [facility] 03-21-2019 Do you have serious difficulty walking or climbing stairs Yes 03/21/2019 1:43 PM Rosendo Henry, FE Yes [facility] 03-21-2019 Do you have difficul ty dressing or bathing Yes 03/21/2019 1:43 PM Rosendo Henry, FE Yes [facility] 03-21-2019 Because of a physica l, mental, or emotional condition, do you have difficulty doing errands alone such as visiting a physician's office or shopping Yes 03/21/2019 1:43 PM Rosendo Henry RN Yes [facility] Mental Status Date Assessment Result Facility 11-18-2024 Cognitive function Appropriate;Cooperativ e [facility] Work Phone: 11-17-2024 Cognitive function Arousable To Voice/Nam e [facility] Work Phone: 11-15-2024 Cognitive function Level Of Cons ciousness Awake;Alert;Appropriate;Fol lows Commands 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 Author Type: Supervisor Transferring And Boxing Type: Progress Notes Filed: 01/26/2025 10:44 Note Text: Episode Visit Count: 27 Therapist That Will Accept/Oversee The Plan Of Care: Milagros Brown PT Start of Care Date: 08/27/24 Onset Date: 05/18/24 Plan of Care Certification Date: 12/21/24 Next Certification Due Date: 02/19/25 Patient Identified by Name and Date of : Yes REHABILITATION AND SPORTS THERAPY PHYSICAL THERAPY TREATMENT NOTE ASSESSMENT: Pat Sorto tolerated the session with no issues. She demonstrated improvements in her skin mobility significantly in dorsal aspect of forearm and medial aspect of forearm as well. Continues to have skin restrictions at dorsum of L hand, especially in comparison to R hand. Pt verbalizes that she will try to wear her glove more often daily to help with this. The patient will continue to benefit from ongoing skilled physical therapy to progress toward set goals. PLAN FOR NEXT VISIT: continue with lymphedema program SUBJECTIVE: Arm isn't feeling bad today. Thinks her arm is doing a little better. Feels heavy every day. Hand is movable. Tried to call [facility] and couldn't get a hold of anyone. Is going to try again. Had a kidney stone procedure/stent placement and is sore from this and tender. Pain: Pain Pain Level: 3 Pain Location: Arm - Left Description: (heaviness) Post Treatment Pain Post Treatment Pain Level: Better Post Treatment Pain Location: Arm - Left OBJECTIVE MEASURES WITH LEVEL OF FUNCTION: Pt arrives to clinic with arm sleeve donned. TREATMENT: Manual Therapy: 1: L UE MLD: Supraclavicular LN -- Superficial abdominals -- R axillary L-- inter-axillary anastomoses -- L inguinal LN -- axillo-inguinal anastomoses -- L shoulder/rotators -- L upper arm medial to lateral drainage emphasis -- elbow -- dorsal and ventral aspect of forearm -- follow up Skilled Intervention: Manual skills to improve joint mobility, ROM, and decrease pain. Utilized anatomy knowledge of the clinician, and assessment of patient's response to intervention. Billing KX Modifier : Therapist attests that services rendered are medically necessary. Therapeutic Exercise Treatment Minutes: 8 Manual TherapyTreatment Minutes: 30 Skilled Treatment Time Minutes (timed and untimed codes): 38 Total Session Time (minutes): 38 Session Start Time : 0953 Session Stop Time : [address] [facility] 01-22-2025 Note HNO ID: [id number] Author: MILAGROS BROWN, PT Service: ? Author Type: Physical Therapist Type: Progress Notes Filed: 01/22/2025 07:15 Note Text: Episode Visit Count: 26 Therapist That Will Accept/Oversee The Plan Of Care: Milagros Brown PT Start of Care Date: 08/27/24 Onset Date: 05/18/24 Plan of Care Certification Date: 12/21/24 Next Certification Due Date: 02/19/25 Patient Identified by Name and Date of : Yes REHABILITATION AND SPORTS THERAPY PHYSICAL THERAPY PROGRESS REPORT PLAN OF CARE UPDATE: Assessment: Pat Angelita Komara demonstrates decrease fluid volume of left arm from previous assessment. The patient has progressed toward goals. Patient continues to present with impairments in edema management that interfere with gripping, pulling, twisting, Comments difficult to open jars.. Current prognosis is Good due to: current objective clinical presentation Fair due to: chronic nature of impairments, multiple co- morbidities . The patient will benefit from continued skilled therapy services to meet the updated goals for this plan of care as noted below. Goals reviewed 01/22/25 Goals for Episode of Care: established 08/27/24 Patient / family knowledgeable re: all pertinent aspects of CDT Ongoing Patient / family independent with donning / doffing compression garment and proper wearing schedule and care of garment Ongoing, new garment does not fit at this time. Patient / family independent with home exercise program Ongoing Patient will decrease circumferential measurements by 1-2 cm in the following areas: left UE and hand for decreased recurrence of infection, improved mobility, improved range of motion and allow appropriate fit in compressive garment . Ongoing Patient Goals: Ease swelling Time Frame for Goals and Treatment : 02/19/25 Patient Goals: Decrease swelling Planned Interventions, Frequency, and Duration: 2x/week, 4 weeks Total Number of Visits Planned: 8 (will continue until patient transitions to [facility] Lymphedema program) Patient to be seen for Therapeutic exercise (13186), Manual therapy (94712), Self-halfway management (53588), Patient/Family/Caregiver Education, Therapeutic activities (89564) (lymphedema program) PLAN FOR NEXT VISIT: continue with lymphedema program SUBJECTIVE: Sore in low back due to kidney stone removed, stent put in. Making arrangements to go to [facility] for treatment once program here ends. No pain with arm but tender in axilla. Questions about how to transfer to [place], what she would need to order prior to transfer. This therapist explained that she would need a new order, nothing to order now.. Patient Goals: Decrease swelling Functional Limitations: gripping, pulling, twisting, Comments Functional Limitation Comments: difficult to open jars. Prior Level of Function: Independent without limitations Intake Information: Prescription present Previous Treatment: Physical Therapy Falls Interview: No positive findings with falls interview Pain: Pain Pain Level: 0 Pain Location: Upper Arm - Left Post Treatment Pain Post Treatment Pain Level: No Change PROMIS Scales 12/28/2024 11/06/2024 09/24/2024 Higher is Better Phys Func - T Score 43 (mild dysfunction) 49 (within normal limits) 43 (mild dysfunction) Phys Func - Percentile 24 46 24 Self-Eff Symptom - T Score 52 (Average) 44 (Average) 38 (Low) Self-Eff Symptom - Percentile 58 27 12 06/02/2019 Lower is Better Pain Interference - [...] score. OBJECTIVE MEASURES WITH LEVEL OF FUNCTION: Posture / Alignment Posture: Forward head, Rounded shoulders UE Observations: continues with lymphedema left UE, no compression sleeve in place but has it with her to put on after assessment. Shoulder Observations L Shoulder Presents with: Incision, Swelling Swelling: lymphedema Incision: healed incision at left breast L Shoulder Palpation Tenderness: No tenderness noted, Comments L Shoulder Palpation Tenderness Comments: good mobility of chest scar, mild myofascial tightness throughout chest area, moderate edema more in left forearm, hand; no cording noted - softening of this area. Sensation - Upper Extremity UE Light Touch Sensation: Grossly Intact Lymphedema Presents with: Swelling Lymphedema is worse: At end of day Lymphedema is better: After wearing compression (using compression pump) Lymphedema Contributing Factors: Chemotherapy, Radiation, Lymph Node (more content not included)... [facility] 01-19-2025 Note HNO ID: [id number] Author: NEPTALI CAMERON AA Service: ? Author Type: Lab Rep Type: Anesthesia Procedure Notes Filed: 01/19/2025 15:10 Note Text: ANESTHESIOLOGY PROCEDURE NOTE Airway General Information Procedure Start Time/Medication Administration: 01/19/2025 3:01 PM Procedure End Time: 01/19/2025 3:01 PM Patient location during procedure: OR Timeout Performed Pre-procedure: timeout performed Consent Obtained: Yes Patient identity confirmed: arm band Staffing Anesthesiologist: Noble Moreno DO CAA: Neptali Cameron AA Performed by: MARION Indications and Patient Condition Indications for airway management: anesthesia Preoxygenated: yes anesthesia circuit Patient position: sniffing Method: asleep Final Airway Details Final airway type: supraglottic airway Number of attempts at approach: 1 Final Supraglottic Airway: i-gel Size: 3Seal Adequate: yes Airway not difficult SIGNATURE: LORENZA Langford PATIENT NAME: Pat Sorto DATE: January 19, 2025 TIME: 3:09 PM CSN: [id number] [facility] 01-18-2025 Note HNO ID: [id number] Author: CHASITY ELLIOTT, RN Service: Nursing Author Type: Registered Nurse Type: Progress Notes Filed: 01/18/2025 16:27 Note Text: MEDICATION INSTRUCTIONS PRIOR TO SURGERY Please read below carefully for your personalized instructions. Medications: If you are on blood thinner or anticoagulants including aspirin, please confirm with your surgical team on when to stop these medications. Unless instructed differently by your surgical team, stay on all of your medications until your surgery. Pre Surgery Med Instructions Medication instructions alpha tocopheryl acetate (VITAMIN E) 400 unit capsule Follow surgeon's instructions. amLODIPine (NORVASC) 5 mg tablet Continue as prescribed. ascorbic acid, vitamin C, (VITAMIN C) 500 mg tablet Follow surgeon's instructions. aspirin, enteric coated (ASPIRIN, ENTERIC COATED) 81 mg EC tablet Follow prescriber's instructions. atorvastatin (LIPITOR) 40 mg tablet Continue as prescribed. blood sugar diagnostic (BLOOD GLUCOSE TEST) test strip Continue as prescribed. CALCIUM CARBONATE (CALCIUM 500 ORAL) Follow surgeon's instructions. cyanocobalamin (VITAMIN B-12) 1,000 mcg tab Follow surgeon's instructions. diphenhydrAMINE-Acetaminophen (TYLENOL PM EXTRA STRENGTH) 25-500 mg tab DO NOT TAKE THE MORNING OF SURGERY. DROPLET PEN NEEDLE 31 gauge x /16 everolimus, antineoplastic, (AFINITOR) 10 mg tablet Follow prescriber's instructions. exemestane (AROMASIN) 25 mg tablet Follow prescriber's instructions. insulin glargine (LANTUS SOLOSTAR U-100 INSULIN) 100 unit/mL (3 mL) See Diabetic medication instructions below. Lancets Continue as prescribed. lidocaine-prilocaine (EMLA) 2.5-2.5 % cream DO NOT TAKE THE MORNING OF SURGERY. losartan (COZAAR) 100 mg tablet DO NOT TAKE THE MORNING OF SURGERY. ONETOUCH ULTRA PLUS TEST strp Continue as prescribed. pantoprazole DR (PROTONIX) 40 mg tablet Continue as prescribed. Sodium Fluoride, Dental Rinse, 0.2 % traZODone (DESYREL) 50 mg tablet ursodiol (LEENA) 250 mg tablet Continue as prescribed. VITAMIN D 50,000 unit capsule Follow surgeon's instructions. - Accucheck day of surgery. - No oral diabetic medication the morning of surgery. - Take full dose of insulin the day before surgery. - Morning of surgery, if your blood sugar is >200, take half dose of your long or intermediate-acting insulin (Levemir, Lantus/glargine, Tresiba/degludec, NPH). If blood sugar is <200, do not administer insulin. 14 UNITS If you have any medication changes between receiving these instructions and your surgery date, please provide this updated information with the nurse who calls you the week day prior to your surgical procedure so we can update your list and provide you with updated instructions for the morning of your procedure. PRE-PROCEDURE INSTRUCTIONS TO PREPARE FOR YOUR PROCEDURE: Your arrival time for your procedure is 1230. Do NOT eat any solid foods after MIDNIGHT the night prior to your procedure - this includes gum or mints. You can drink clear liquids* up until 1030, which is 2 hours before your arrival time. *Clear liquids = water, carbohydrate drink (sports drink that is clear or yellow in color), Ensure Pre-Surgery (given by TARA or your DrJessica), fruit juice without pulp (apple/cranberry), clear tea, black coffee (no cream). NO CARBONATED BEVERAGES AND NO ALCOHOL. Shower the morning of the procedure, put on clean clothes, and have clean sheets for your bed to help prevent infection after your procedure. Leave all valuables such as jewelry including rings, piercings, wallets, and purses at home. Wear comfortable, loose-fitting clothing. If you wear glasses or contacts, please bring a case. SPECIAL INSTRUCTIONS: If instructed, bring your first voided urine specimen with you. If you were provided skin preparation to use prior to your procedure, complete this as directed. If a bowel preparation has been ordered by your physician, it is very important to follow the bowel prep instructions or your procedure may need to be rescheduled. If you use crutches or a walker, bring them with you. If you have a home CPAP/BIPAP machine, bring it with you. If you were instructed to complete a fleets enema or bowel prep, complete as directed. Bring copy of Living Will/Power of Banking Supervisor. Do not smoke or chew. If you use tobacco, quit or at least cut down before surgery. Do not smoke or chew after midnight the day before your surgery. This effects bleeding, infection, healing, and so much more. Do not take any Diet or Herbal Supplements 2 weeks prior to your surgery date. Please notify your physician if there is any change in your physical condition such as a cold, cough, fever, sore throat, or skin irritation near the surgical site. Visitors under the age of 14 are restricted in the Surgery Center. UPON ARRIVAL: Access to [facility] (the glass building (more content not included)... [facility] 01-18-2025 Note HNO ID: [id number] Author: NOE JACKSON PTA Service: ? Author Type: Supervisor Transferring And Boxing Type: Progress Notes Filed: 01/18/2025 09:55 Note Text: Episode Visit Count: 25 Therapist That Will Accept/Oversee The Plan Of Care: Milagros Brown PT Start of Care Date: 08/27/24 Onset Date: 05/18/24 Plan of Care Certification Date: 12/21/24 Next Certification Due Date: 02/19/25 Patient Identified by Name and Date of : Yes REHABILITATION AND SPORTS THERAPY PHYSICAL THERAPY TREATMENT NOTE ASSESSMENT: Pat Sorto tolerated the session with no issues. She demonstrated increased tightness and decreased skin mobility at medial aspect of elbow this date that is likely aligned with her report of increased heaviness today. Provided pt with information and phone number for [facility] to order a size bigger in her current sleeve as she reports it feeling too tight. The patient will continue to benefit from ongoing skilled physical therapy for reassessment by supervising therapist. PLAN FOR NEXT VISIT: Progress note due at next visit. SUBJECTIVE: Arm feels heavier and a little bigger today. Wore the sleeve over the weekend, didn't do the arm pump for the whole hour a couple days which may be why. Pain: Pain Pain Level: 4 Pain Location: Upper Arm - Left Description: (heavy) Post Treatment Pain Post Treatment Pain Level: Better Post Treatment Pain Location: Upper Arm - Left OBJECTIVE MEASURES WITH LEVEL OF FUNCTION: Pt arrives to clinic with sleeve donned, line visible at wrist of indentation from swelling. TREATMENT: Therapeutic Exercise: 1: OH pulleys flexion, ABD 15x ea 3 hold 2: UBE L2 x 6 minutes total (3 mins fwd, 3 min retro) forward for improved postural awareness and ROM/mobility in L UE ; subjective info taken during Skilled Intervention: Patient was educated in proper exercise technique and purpose for exercises. Skilled judgment was used in selection of appropriate interventions. Correct performance of therapeutic exercises was facilitated with verbal and tactile cuing. Manual Therapy: 1: L UE MLD: Supraclavicular LN -- Superficial abdominals -- R axillary L-- inter-axillary anastomoses -- L inguinal LN -- axillo-inguinal anastomoses -- L shoulder/rotators -- L upper arm medial to lateral drainage emphasis -- elbow -- dorsal and ventral aspect of forearm -- follow up Skilled Intervention: Manual skills to improve joint mobility, ROM, and decrease pain. Utilized anatomy knowledge of the clinician, and assessment of patient's response to intervention. Billing Therapeutic Exercise Treatment Minutes: 10 Manual TherapyTreatment Minutes: 27 Skilled Treatment Time Minutes (timed and untimed codes): 37 Total Session Time (minutes): 37 Session Start Time : 909 Session Stop Time : 09 Noe Jackson [facility] 01-15-2025 Note HNO ID: [id number] Author: BEKA MENDIETA APRN.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 Service: ? Author Type: Nurse Practitioner Type: Progress Notes Filed: 01/15/2025 12:31 Note Text: Summary: PAT REVIEW 64-year-old female with PMH: HTN, HLD, left breast cancer s/p mastectomy (2018), has port in right chest, + lymphedema left arm, CKD 3B, anemia, iron malabsorption, functional diarrhea, dehydration Coronary CTA 12/2024: Score 1.1 Echo 12/2024 EF 50% mild mitral valve insufficiency, mild to moderate tricuspid insufficiency [facility] 01-15-2025 Note HNO ID: [id number] Author: BEKA MENDIETA APRN.CNP Service: ? Author Type: Nurse Practitioner Type: Progress Notes Filed: 01/15/2025 12:26 Note Text: Summary: DOS MEDS MEDICATION INSTRUCTIONS PRIOR TO SURGERY Please read below carefully for your personalized instructions. Medications: If you are on blood thinner or anticoagulants including aspirin, please confirm with your surgical team on when to stop these medications. Unless instructed differently by your surgical team, stay on all of your medications until your surgery. Pre Surgery Med Instructions Medication instructions alpha tocopheryl acetate (VITAMIN E) 400 unit capsule Follow surgeon's instructions. amLODIPine (NORVASC) 5 mg tablet Continue as prescribed. ascorbic acid, vitamin C, (VITAMIN C) 500 mg tablet Follow surgeon's instructions. aspirin, enteric coated (ASPIRIN, ENTERIC COATED) 81 mg EC tablet Follow prescriber's instructions. atorvastatin (LIPITOR) 40 mg tablet Continue as prescribed. blood sugar diagnostic (BLOOD GLUCOSE TEST) test strip Continue as prescribed. CALCIUM CARBONATE (CALCIUM 500 ORAL) Follow surgeon's instructions. cyanocobalamin (VITAMIN B-12) 1,000 mcg tab Follow surgeon's instructions. diphenhydrAMINE-Acetaminophen (TYLENOL PM EXTRA STRENGTH) 25-500 mg tab DO NOT TAKE THE MORNING OF SURGERY. DROPLET PEN NEEDLE 31 gauge x 3/16 everolimus, antineoplastic, (AFINITOR) 10 mg tablet Follow prescriber's instructions. exemestane (AROMASIN) 25 mg tablet Follow prescriber's instructions. insulin glargine (LANTUS SOLOSTAR U-100 INSULIN) 100 unit/mL (3 mL) See Diabetic medication instructions below. Lancets Continue as prescribed. lidocaine-prilocaine (EMLA) 2.5-2.5 % cream DO NOT TAKE THE MORNING OF SURGERY. losartan (COZAAR) 100 mg tablet DO NOT TAKE THE MORNING OF SURGERY. ONETOUCH ULTRA PLUS TEST strp Continue as prescribed. pantoprazole DR (PROTONIX) 40 mg tablet Continue as prescribed. Sodium Fluoride, Dental Rinse, 0.2 % traZODone (DESYREL) 50 mg tablet ursodiol (LEENA) 250 mg tablet Continue as prescribed. VITAMIN D 50,000 unit capsule Follow surgeon's instructions. - Accucheck day of surgery. - No oral diabetic medication the morning of surgery. - Take full dose of insulin the day before surgery. - Morning of surgery, if your blood sugar is >200, take half dose of your long or intermediate-acting insulin (Levemir, Lantus/glargine, Tresiba/degludec, NPH). If blood sugar is <200, do not administer insulin. 14 UNITS If you have any medication changes between receiving these instructions and your surgery date, please provide this updated information with the nurse who calls you the week day prior to your surgical procedure so we can update your list and provide you with updated instructions for the morning of your procedure. [facility] 01-14-2025 Note HNO ID: [id number] Author: NOE JACKSON PTA Service: ? Author Type: Supervisor Transferring And Boxing Type: Progress Notes Filed: 01/14/2025 10:05 Note Text: Episode Visit Count: 24 Therapist That Will Accept/Oversee The Plan Of Care: Milagros Brown PT Start of Care Date: 08/27/24 Onset Date: 05/18/24 Plan of Care Certification Date: 12/21/24 Next Certification Due Date: 02/19/25 Patient Identified by Name and Date of : Yes REHABILITATION AND SPORTS THERAPY PHYSICAL THERAPY TREATMENT NOTE ASSESSMENT: Pat Sorto tolerated the session with expected muscle soreness. She demonstrated improvements in skin mobility at medial aspect of elbow this date. Mild fibrotic tissue this date but improved overall from previous sessions. Continues to present with tenderness with moderate palpation to L pec and anterior shoulder. The patient will continue to benefit from ongoing skilled physical therapy to progress toward set goals. PLAN FOR NEXT VISIT: Continue with MLD, focus on elbow and medial upper arm. MFR/STM to L chest. Potential KT tape to L chest to dec tightness/tenderness SUBJECTIVE: Hand is feeling good today. The arm is stiff today but not too bad. Pain: Pain Pain Level: 2 Pain Location: Upper Arm - Left Description: Stiffness Post Treatment Pain Post Treatment Pain Level: Better Post Treatment Pain Location: Upper Arm - Left OBJECTIVE MEASURES WITH LEVEL OF FUNCTION: Pt arrives to clinic in no acute distress. Shortened session due to pt tardiness. TREATMENT: Therapeutic Exercise: 1: OH pulleys flexion, ABD 15x ea 3 hold Skilled Intervention: Patient was educated [...] to lateral drainage emphasis -- elbow -- dorsal and ventral aspect of forearm -- follow up 2: STM and sustained pressure to L pec region Skilled Intervention: Manual skills to improve joint mobility, ROM, and decrease pain. Utilized anatomy knowledge of the clinician, and assessment of patient's response to intervention. Billing Therapeutic Exercise Treatment Minutes: 5 Manual TherapyTreatment Minutes: 29 Skilled Treatment Time Minutes (timed and untimed codes): 34 Total Session Time (minutes): 34 Session Start Time : 910 Session Stop Time : [address] [facility] 01-11-2025 Note HNO ID: [id number] Author: NOE JACKSON PTA Service: ? Author Type: Supervisor Transferring [employer]ing Type: Progress Notes Filed: 01/11/2025 09:12 Note Text: Episode Visit Count: 23 Therapist That Will Accept/Oversee The Plan Of Care: Milagros Brown PT Start of Care Date: 08/27/24 Onset Date: 05/18/24 Plan of Care Certification Date: 12/21/24 Next Certification Due Date: 02/19/25 Patient Identified by Name and Date of : Yes REHABILITATION AND SPORTS THERAPY PHYSICAL THERAPY TREATMENT NOTE ASSESSMENT: Pat Sorto tolerated the session with expected muscle soreness. She demonstrated improvements in mobility of skin at ventral aspect of L forearm/wrist in comparison to previous sessions. Skin is more mobile and less tight although just superior in mid forearm, tightness is still present. The patient will continue to benefit from ongoing skilled physical therapy to progress toward set goals. PLAN FOR NEXT VISIT: Continue with MLD, focus on elbow and medial upper arm. MFR/STM to L chest. Potential KT tape to L chest to dec tightness/tenderness SUBJECTIVE: Missed two days of doing her pump because she has been busy, has had family in from out of town, notices it is a little puffier because of this. Pain: Pain Pain Location: Upper Arm - Left Description: Stiffness Post Treatment Pain Post Treatment Pain Level: Better Post Treatment Pain Location: Upper Arm - Left OBJECTIVE MEASURES WITH LEVEL OF FUNCTION: Shortened session due to pt tardiness. Comes in to session with sleeve donned. TREATMENT: Therapeutic Exercise: 1: OH pulleys flexion, ABD 15x ea 3 hold Skilled Intervention: Patient was educated in proper exercise technique and purpose for exercises. Skilled judgment was used in selection of appropriate interventions. Correct performance of therapeutic exercises was facilitated with verbal and tactile cuing. Manual Therapy: 1: L UE MLD: Supraclavicular LN -- Superficial abdominals -- R axillary L-- inter-axillary anastomoses -- L inguinal LN -- axillo-inguinal anastomoses -- L shoulder/rotators -- L upper arm medial to lateral drainage emphasis -- elbow -- dorsal and ventral aspect of forearm -- follow up 2: STM to L pec region Skilled Intervention: Manual skills to improve joint mobility, ROM, and decrease pain. Utilized anatomy knowledge of the clinician, and assessment of patient's response to intervention. Billing Therapeutic Exercise Treatment Minutes: 5 Manual TherapyTreatment Minutes: 27 Skilled Treatment Time Minutes (timed and untimed codes): 32 Total Session Time (minutes): 32 Session Start Time : 828 Session Stop Time : [address] [facility] 01-08-2025 Note HNO ID: [id number] Author: NOE JACKSON PTA Service: ? Author Type: Supervisor Transferring [employer] Type: Progress Notes Filed: 01/08/2025 10:06 Note Text: Episode Visit Count: 22 Therapist That Will Accept/Oversee The Plan Of Care: Milagros Brown PT Start of Care Date: 08/27/24 Onset Date: 05/18/24 Plan of Care Certification Date: 12/21/24 Next Certification Due Date: 02/19/25 Patient Identified by Name and Date of : Yes REHABILITATION AND SPORTS THERAPY PHYSICAL THERAPY TREATMENT NOTE ASSESSMENT: Pat Sorto tolerated the session with expected muscle soreness. She demonstrated steady yet slow improvement of tightness in her wrist and forearm area on the ventral aspect. The patient will continue to benefit from ongoing skilled physical therapy to progress toward set goals. PLAN FOR NEXT VISIT: Continue with MLD, focus on elbow and medial upper arm. SUBJECTIVE: A little sore from the resisted band exercises. Pain: Pain Pain Level: 1 Pain Location: Upper Arm - Left Description: Sore Post Treatment Pain Post Treatment Pain Level: No Change Post Treatment Pain Location: Upper Arm - Left OBJECTIVE MEASURES WITH LEVEL OF FUNCTION: Pt comes to session with sleeve donned. TREATMENT: Therapeutic Exercise: 1: OH pulleys flexion, ABD 15x ea 3 hold 2: UBE L2 x 6 minutes total (3 mins fwd, 3 min retro) forward for improved postural awareness and ROM/mobility in L UE ; subjective info taken during Skilled Intervention: Patient was educated in proper [...] to lateral drainage emphasis -- elbow -- dorsal and ventral aspect of forearm -- follow up 2: STM to L pec region Skilled Intervention: Manual skills to improve joint mobility, ROM, and decrease pain. Utilized anatomy knowledge of the clinician, and assessment of patient's response to intervention. Billing Therapeutic Exercise Treatment Minutes: 10 Manual TherapyTreatment Minutes: 31 Skilled Treatment Time Minutes (timed and untimed codes): 41 Total Session Time (minutes): 41 Session Start Time : 906 Session Stop Time : [address] [facility] 01-06-2025 Note HNO ID: [id number] Author: NOE JACKSON PTA Service: ? Author Type: Supervisor Transferring [employer]ing Type: Progress Notes Filed: 01/06/2025 10:53 Note Text: Program_ID:[id number] Access Code: [email or web address] URL: [email or web address] Date: 01-06-2025 Prepared By: Noe Jackson Program Notes Exercises - Supine Chest Stretch with Elbows Bent - 1 x daily - 7 x weekly - sets - 3-5 reps - 30 sec holds hold - Standing Single Arm Shoulder Abduction Stretch on Wall - 1 x daily - 7 x weekly - sets - 3-5 reps - 30 hold - Standing Single Arm Shoulder Abduction Stretch on Wall - 1 x daily - 7 x weekly - sets - 3-5 reps - 30 seconds hold - Single Arm Doorway Pec Stretch at 90 Degrees Abduction - 1 x daily - 7 x weekly - 1 sets - 3 reps - 20-30 hold - Doorway Pec Stretch at 60 Degrees Abduction with Arm Straight - 1 x daily - 7 x weekly - 1 sets - 3 reps - 20-30 hold - Shoulder External Rotation and Scapular Retraction with Resistance - 1 x daily - 7 x weekly - 3 sets - 10 reps - Standing Shoulder Horizontal Abduction with Resistance - 1 x daily - 7 x weekly - 3 sets - 10 reps - Wall Push Up - 1 x daily - 7 x weekly - 3 sets - [address] [facility] 01-06-2025 Note HNO ID: [id number] Author: NOE JACKSON PTA Service: ? Author Type: Supervisor Transferring [employer]ing Type: Progress Notes Filed: 01/06/2025 10:53 Note Text: Episode Visit Count: 21 Therapist That Will Accept/Oversee The Plan Of Care: Milagros Brown PT Start of Care Date: 08/27/24 Onset Date: 05/18/24 Plan of Care Certification Date: 12/21/24 Next Certification Due Date: 02/19/25 Patient Identified by Name and Date of : Yes REHABILITATION AND SPORTS THERAPY PHYSICAL THERAPY TREATMENT NOTE ASSESSMENT: Pat Sorto tolerated the session with fatigue and expected muscle soreness. She demonstrated tightness with postural strengthening and mobility work and continues to have tenderness in L pec region as well. The patient will continue to benefit from ongoing skilled physical therapy to progress toward set goals. PLAN FOR NEXT VISIT: Continue with MLD, focus on elbow and medial upper arm. Follow up on strengthening exercises added SUBJECTIVE: Pat notes that her arm is okay today, feeling less tight. She is able to close her hand and make a fist easier. Her L pec area where she has fat necrosis bothers her and rubs on her bra. Her pec and L arm also feel very weak. Pain: Pain Pain Level: 2 Pain Location: Upper Arm - Left Description: Tightness Post Treatment Pain Post Treatment Pain Level: Better Post Treatment Pain Location: Upper Arm - Left OBJECTIVE MEASURES WITH LEVEL OF FUNCTION: Pt arrives to clinic in no acute distress. TREATMENT: Therapeutic Exercise: 1: OH pulleys flexion, ABD 15x ea 3 hold 2: UBE L1 x 6 minutes total (3 mins fwd, 3 min retro) forward for improved postural awareness and ROM/mobility in L UE ; subjective info taken during (added retro direction) 3: wall push ups 2 x10 4: B ER mint band 2x10 5: B horiz ABD 2x10 with mint band Skilled Intervention: Patient was educated in proper exercise technique and purpose for exercises. Reviewed and educated patient on additions/changes for home exercise program. Skilled judgment was used in selection of [...] to lateral drainage emphasis -- elbow -- dorsal and ventral aspect of forearm -- follow up Skilled Intervention: Manual skills to improve joint mobility, ROM, and decrease pain. Utilized anatomy knowledge of the clinician, and assessment of patient's response to intervention. Home Exercise Program Assigned: 1: Access Code: [email or web address] URL: [email or web address] Date: 01/06/2025 Prepared by: PT [place] Exercises - Supine Chest Stretch with Elbows [...] - 3 reps - 20-30 hold - Shoulder External Rotation and Scapular Retraction with Resistance - 1 x daily - 7 x weekly - 3 sets - 10 reps - Standing Shoulder Horizontal Abduction with Resistance - 1 x daily - 7 x weekly - 3 sets - 10 reps - Wall Push Up - 1 x daily - 7 x weekly - 3 sets - 10 reps Billing Therapeutic Exercise Treatment Minutes: 22 Manual TherapyTreatment Minutes: 20 Skilled Treatment Time Minutes (timed and untimed codes): 42 Total Session Time (minutes): 42 Session Start Time : 951 Session Stop Time : [address] [facility] 12-28-2024 Note HNO ID: [id number] Author: NOE JACKSON PTA Service: ? Author Type: Supervisor Transferring [employer]ing Type: Progress Notes Filed: 12/28/2024 10:43 Note Text: Episode Visit Count: 20 Therapist That Will Accept/Oversee The Plan Of Care: Milagros Brown PT Start of Care Date: 08/27/24 Onset Date: 05/18/24 Plan of Care Certification Date: 12/21/24 Next Certification Due Date: 02/19/25 Patient Identified by Name and Date of : Yes REHABILITATION AND SPORTS THERAPY PHYSICAL THERAPY TREATMENT NOTE ASSESSMENT: Pat Sorto tolerated the session with expected muscle soreness. She demonstrated continued tenderness at L chest and pec region. Recommended pt focus on pec stretches in doorway given previously as she hasn't been doing those stretches in particular. Focus of MLD on upper arm and elbow this date due to time constraints and wanting to shift focus to problem areas this date. The patient will continue to benefit from ongoing skilled physical therapy to progress toward set goals. PLAN FOR NEXT VISIT: Continue with MLD, focus on elbow and medial upper arm SUBJECTIVE: Arm got a little puffy on Saturday night because she didn't have her sleeve on for a few hours. She is not sure if the glove is helping or not but is not too tight. Pain: Pain Pain Level: 8 Pain Location: Upper Arm - Left Description: Tightness (heaviness) Post Treatment Pain Post Treatment Pain Level: No Change Post Treatment Pain Location: Upper Arm - Left OBJECTIVE MEASURES WITH LEVEL OF FUNCTION: Pt comes in to session with no garments donned. TREATMENT: Therapeutic Exercise: 1: OH pulleys flexion, ABD 15x ea 3 hold 2: UBE L1 x 6 minutes forward for improved postural awareness and ROM/mobility in L UE ; subjective info taken during Skilled Intervention: Patient was educated in proper [...] to lateral drainage emphasis -- elbow -- follow up Skilled Intervention: Manual skills to improve joint mobility, ROM, and decrease pain. Utilized anatomy knowledge of the clinician, and assessment of patient's response to intervention. Billing Therapeutic Exercise Treatment Minutes: 10 Manual TherapyTreatment Minutes: 30 Skilled Treatment Time Minutes (timed and untimed codes): 40 Total Session Time (minutes): 40 Session Start Time : 823 Session Stop Time : [address] [facility] 12-25-2024 Note HNO ID: [id number] Author: NOE JACKSON PTA Service: ? Author Type: Supervisor Transferring [employer]ing Type: Progress Notes Filed: 12/25/2024 10:56 Note Text: Episode Visit Count: 19 Therapist That Will Accept/Oversee The Plan Of Care: Milagros Brown PT Start of Care Date: 08/27/24 Onset Date: 05/18/24 Plan of Care Certification Date: 12/21/24 Next Certification Due Date: 02/19/25 Patient Identified by Name and Date of : Yes REHABILITATION AND SPORTS THERAPY PHYSICAL THERAPY TREATMENT NOTE ASSESSMENT: Pat Sorto tolerated the session with expected muscle soreness. She demonstrated continued tightness at elbow region and ventral aspect of forearm and wrist. I reiterated importance and reasoning of why of wearing the glove alongside the sleeve will help to avoid hand swelling and discomfort. Wearing sleeve without the glove will push her lymphatic fluid to her hand and cause more swelling, more tightness and decreased ROM in the hand. The patient will continue to benefit from ongoing skilled physical therapy to progress toward set goals. PLAN FOR NEXT VISIT: Continue with MLD, focus on elbow SUBJECTIVE: The sleeve is good for her arm but not for her hand because her hand swells. She continues to not wear her glove during the day but does wear her sleeve. She notes she has been wearing the glove and the sleeve for about 5 hours at night time the last couple of days , gets hot. Does note a slight improvement after taking it off in the morning. Her hand is better then it was at the start of therapy. Pain: Pain Pain Level: 0 Pain Location: Upper Arm - Left Post Treatment Pain Post Treatment Pain Level: No Change Post Treatment Pain Location: Upper Arm - Left OBJECTIVE MEASURES WITH LEVEL OF FUNCTION: Pt arrives to session with no sleeve donned. TREATMENT: Therapeutic Exercise: 1: OH pulleys flexion, ABD 15x 3 hold 2: UBE L1 x 6 minutes forward for improved postural awareness and ROM/mobility in L UE ; subjective info taken during Skilled Intervention: Patient was educated in proper [...] Exercise Treatment Minutes: 10 Manual TherapyTreatment Minutes: 36 Skilled Treatment Time Minutes (timed and untimed codes): 46 Total Session Time (minutes): 46 Session Start Time : 48 Session Stop Time : [address] [facility] 12-23-2024 Note HNO ID: [id number] Author: NOE JACKSON PTA Service: ? Author Type: Supervisor Transferring [employer]ing Type: Progress Notes Filed: 12/23/2024 12:22 Note Text: Episode Visit Count: 18 Therapist That Will Accept/Oversee The Plan Of Care: Milagros Brown PT Start of Care Date: 08/27/24 Onset Date: 05/18/24 Plan of Care Certification Date: 12/21/24 Next Certification Due Date: 02/19/25 Patient Identified by Name and Date of : Yes REHABILITATION AND SPORTS THERAPY PHYSICAL THERAPY TREATMENT NOTE ASSESSMENT: Pat Sorto tolerated the session with no issues. She demonstrated improvements in skin mobility, especially at medial forearm. We discussed how she can utilize compression for comfort both day and night, pt agreeable with plan discussed. The patient will continue to benefit from ongoing skilled physical therapy to progress toward set goals. PLAN FOR NEXT VISIT: Continue with MLD. Assess compliance with wearing sleeve and glove during nighttime. SUBJECTIVE: Notes that she wears her glove at night but not her sleeve. She wears her sleeve during the day but not the glove during the day. She has to take the glove off too much during the day which is why she does not wear it. She is not interested in a nighttime garment after being shown and discussion of what entails. She continues to note improvement of her hand movement. Pain: Pain Pain Level: 0 Pain Location: Upper Arm - Left Post Treatment Pain Post Treatment Pain Level: No Change Post Treatment Pain Location: Upper Arm - Left OBJECTIVE MEASURES WITH LEVEL OF FUNCTION: Pt arrives to clinic with sleeve donned, no glove. TREATMENT: Manual Therapy: 1: L UE MLD: [...] response to intervention. Self-Fdc Management: 1: Discussion of importance of wearing both glove and sleeve compression in order to avoid increased hand and finger swelling. We problem solved and decided pt is to wear her glove and sleeve during nighttime hours and can wear her sleeve during daytime hours 2: Visual aid for nighttime garment possibility and discussed features to help with swelling at night; pt not interested, states she likely would not use it Skilled Intervention: Reviewed patient specific diagnosis in relation to activities of daily living/home management. Billing Manual TherapyTreatment Minutes: 31 Self-Care/Home Management Treatment Minutes: 10 Skilled Treatment Time Minutes (timed and untimed codes): 41 Total Session Time (minutes): 41 Session Start Time : 901 Session Stop Time : 942 Noe Jackson [facility] 12-23-2024 History of Present illness Narrative Episode Visit Count: 18 Therapist That Will Accept/Oversee The Plan Of Care: Milagros Brown PT Start of Care Date: 08/27/24 Onset Date: 05/18/24 Plan of Care Certification Date: 12/21/24 Next Certification Due Date: 02/19/25 Patient Identified by Name and Date of : Yes REHABILITATION AND SPORTS THERAPY PHYSICAL THERAPY TREATMENT NOTE ASSESSMENT: Pat Sorto tolerated the session with no issues. She demonstrated improvements in skin mobility, especially at medial forearm. We discussed how she can utilize compression for comfort both day and night, pt agreeable with plan discussed. The patient will continue to benefit from ongoing skilled physical therapy to progress toward set goals. PLAN FOR NEXT VISIT: Continue with MLD. Assess compliance with wearing sleeve and glove during nighttime. SUBJECTIVE: Notes that she wears her glove at night but not her sleeve. She wears her sleeve during the day but not the glove during the day. She has to take the glove off too much during the day which is why she does not wear it. She is not interested in a nighttime garment after being shown and discussion of what entails. She continues to note improvement of her hand movement. Pain: Pain Pain Level: 0 Pain Location: Upper Arm - Left Post Treatment Pain Post Treatment Pain Level: No Change Post Treatment Pain Location: Upper Arm - Left OBJECTIVE MEASURES WITH LEVEL OF FUNCTION: Pt arrives to clinic with sleeve donned, no glove. TREATMENT: Manual Therapy: 1: L UE MLD: [...] response to intervention. Self-Fdc Management: 1: Discussion of importance of wearing both glove and sleeve compression in order to avoid increased hand and finger swelling. We problem solved and decided pt is to wear her glove and sleeve during nighttime hours and can wear her sleeve during daytime hours 2: Visual aid for nighttime garment possibility and discussed features to help with swelling at night; pt not interested, states she likely would not use it Skilled Intervention: Reviewed patient specific diagnosis in relation to activities of daily living/home management. Billing Manual TherapyTreatment Minutes: 31 Self-Care/Home Management Treatment Minutes: 10 Skilled Treatment Time Minutes (timed and untimed codes): 41 Total Session Time (minutes): 41 Session Start Time : 901 Session Stop Time : 942 Noe Jackson PTA documented in this encounter [facility] 12-23-2024 Note HNO ID: [id number] Author: MILAGROS BROWN PT Service: ? Author Type: Physical Therapist Type: Progress Notes Filed: 12/23/2024 07:54 Note Text: Episode Visit Count: 17 Therapist That Will Accept/Oversee The Plan Of Care: Milagros Brown PT Start of Care Date: 08/27/24 Onset Date: 05/18/24 Plan of Care Certification Date: 12/21/24 Next Certification Due Date: 02/19/25 Patient Identified by Name and Date of : Yes REHABILITATION AND SPORTS THERAPY PHYSICAL THERAPY PROGRESS REPORT PLAN OF CARE UPDATE: Assessment: Pat Sorto demonstrates improvements in decrease tightness, hardness of tissue in left arm. Skin softer, more mobile but continues with lymphedema. The patient has progressed toward goals. Patient continues to present with impairments in edema management and symptom management that interfere with gripping, pulling, twisting . Current prognosis is Good due to: current objective clinical presentation Fair due to: chronic nature of impairments, multiple co- morbidities . The patient will benefit from continued skilled therapy services to meet the updated goals for this plan of care as noted below. Goals reviewed 12/21/24 Goals for Episode of Care: established 08/27/24 Patient / family knowledgeable re: all pertinent aspects of CDT Ongoing Patient / family independent with donning / doffing compression garment and proper wearing schedule and care of garment Ongoing, new garment does not fit at this time. Patient / family independent with home exercise program Ongoing Patient will decrease circumferential measurements by 1-2 cm in the following areas: left UE and hand for decreased recurrence of infection, improved mobility, improved range of motion and allow appropriate fit in compressive garment . Ongoing Patient Goals: Ease swelling Time Frame for Goals and Treatment : 01/20/25 Patient Goals: Decrease swelling Planned Interventions, Frequency, and Duration: 2x/week (2-3x/week as indicated), 4 weeks Total Number of Visits Planned: 8 Patient to be seen for Therapeutic exercise (46717), Manual therapy (81974), Self-halfway management (73173), Patient/Family/Caregiver Education, Therapeutic activities (10157) (lymphedema program) PLAN FOR NEXT VISIT: continue current program - need to discuss compression garment, possibly one for night use. SUBJECTIVE: Using compression pump, wearing sleeve at times but feels tight. Not sure if it is helping reduce volume of swelling but tissue feels more mobile, softer. Would like to continue. Discussed the need to find other clinicians to follow up with due to program discontinuing at end of year at this clinic.Patient did indicate that the doctor wanted her to wear compression sleeve 29/10. Does not feel she can tolerate that with current sleeve.. Patient Goals: Decrease swelling Functional Limitations: gripping, pulling, twisting Prior Level of Function: Independent without limitations Intake Information: Prescription present Previous Treatment: Physical Therapy Falls Interview: No positive findings with falls interview Pain: Pain Pain Level: 0 Pain Location: Upper Arm - Left Description: Pressure Frequency: Intermittent Post Treatment Pain Post Treatment Pain Level: No Change Post Treatment Pain Location: Upper Arm - Left PROMIS Scales 11/06/2024 09/24/2024 08/27/2024 Higher is [...] / Alignment Posture: Forward head, Rounded shoulders UE Observations: continues with lymphedema left UE Shoulder Observations L Shoulder Presents with: Incision, Swelling Swelling: lymphedema Incision: healed incision at left breast following implant removal L Shoulder Palpation Tenderness: No tenderness noted, Comments L Shoulder Palpation Tenderness Comments: good mobility of chest scar, mild myofascial tightness throughout chest area, moderate edema more in left forearm, hand; no cording noted - softening of this area. Sensation - Upper Extremity UE Light Touch Sensation: Grossly Int (more content not included)... [facility] 12-23-2024 History of Present illness Narrative Images from the original note were not included. Episode Visit Count: 17 Therapist That Will Accept/Oversee The Plan Of Care: Milagros Brown PT Start of Care Date: 08/27/24 Onset Date: 05/18/24 Plan of Care Certification Date: 12/21/24 Next Certification Due Date: 02/19/25 Patient Identified by Name and Date of : Yes REHABILITATION AND SPORTS THERAPY PHYSICAL THERAPY PROGRESS REPORT PLAN OF CARE UPDATE: Assessment: Pat Angelita Komara demonstrates improvements in decrease tightness, hardness of tissue in left arm. Skin softer, more mobile but continues with lymphedema. The patient has progressed toward goals. Patient continues to present with impairments in edema management and symptom management that interfere with gripping, pulling, twisting . Current prognosis is Good due to: current objective clinical presentation Fair due to: chronic nature of impairments, multiple co- morbidities . The patient will benefit from continued skilled therapy services to meet the updated goals for this plan of care as noted below. Goals reviewed 12/21/24 Goals for Episode of Care: established 08/27/24 Patient / family knowledgeable re: all pertinent aspects of CDT Ongoing Patient / family independent with donning / doffing compression garment and proper wearing schedule and care of garment Ongoing, new garment does not fit at this time. Patient / family independent with home exercise program Ongoing Patient will decrease circumferential measurements by 1-2 cm in the following areas: left UE and hand for decreased recurrence of infection, improved mobility, improved range of motion and allow appropriate fit in compressive garment . Ongoing Patient Goals: Ease swelling Time Frame for Goals and Treatment : 01/20/25 Patient Goals: Decrease swelling Planned Interventions, Frequency, and Duration: 2x/week (2-3x/week as indicated), 4 weeks Total Number of Visits Planned: 8 Patient to be seen for Therapeutic exercise (73813), Manual therapy (84432), Self-halfway management (27268), Patient/Family/Caregiver Education, Therapeutic activities ([id number]) (lymphedema program) PLAN FOR NEXT VISIT: continue current program - need to discuss compression garment, possibly one for night use. SUBJECTIVE: Using compression pump, wearing sleeve at times but feels tight. Not sure if it is helping reduce volume of swelling but tissue feels more mobile, softer. Would like to continue. Discussed the need to find other clinicians to follow up with due to program discontinuing at end of year at this clinic.Patient did indicate that the doctor wanted her to wear compression sleeve 29/10. Does not feel she can tolerate that with current sleeve.. Patient Goals: Decrease swelling Functional Limitations: gripping, pulling, twisting Prior Level of Function: Independent without limitations Intake Information: Prescription present Previous Treatment: Physical Therapy Falls Interview: No positive findings with falls interview Pain: Pain Pain Level: 0 Pain Location: Upper Arm - Left Description: Pressure Frequency: Intermittent Post Treatment Pain Post Treatment Pain Level: No Change Post Treatment Pain Location: Upper Arm - Left PROMIS Scales 11/06/2024 09/24/2024 08/27/2024 Higher is [...] / Alignment Posture: Forward head, Rounded shoulders UE Observations: continues with lymphedema left UE Shoulder Observations L Shoulder Presents with: Incision, Swelling Swelling: lymphedema Incision: healed incision at left breast following implant removal L Shoulder Palpation Tenderness: No tenderness noted, Comments L Shoulder Palpation Tenderness Comments: good mobility of chest scar, mild myofascial tightness throughout chest area, moderate edema more in left forearm, hand; no cording noted - softening of this area. Sensation - Upper Extremity UE Light Touch Sensation: Grossly Intact Lymphedema Presents with: Swelling Lymphedema is worse: At end of day Lymphedema Contributing Factors: Chemotherapy, Radiation, Lymph Node Removal Current Lymphedema Management: (pump, compression sleeve, lymphedema program) Color Comments:: decrease in reddened tone to skin of left arm Pitting Edema Comments:: no pitting edema at this time Stemmer Sign Comments: negative Stemmer's sign on left Upper Extremity Circumferential Measurements L Thumb (proximal phalanx) (cm): 7.7 cm L Index Finger (proximal phalanx) (cm): 7.2 cm L Middle Finger (proximal phalanx) (cm): 6.8 cm L Ring Finger (proximal phalanx) (cm): 6.3 cm L Small Finger (proximal phalanx) (cm): 6.1 cm L DPC (cm): 22 cm L Distal Wrist Crease (DWC) (cm): 20 cm L 4 cm above wrist (cm): 21.8 cm L 8 cm above wrist (cm): 24.3 cm L 12 cm above wrist (cm): 29.1 cm L 16 cm above wrist (cm): 35.3 cm L 20 cm above wrist (cm): 35 cm L 24 cm above wrist (cm): 36.3 cm L 28 cm above wrist (cm): 38.5 cm L 32 cm above wrist (cm): 39.2 cm L 36 cm above wrist (cm): 38.6 cm L 40 cm above wrist (cm): 40.4 cm L 44 cm above wrist (cm): 40 cm Affected Arm : Left Arm L Upper Extremity Volume: 4085.57 UE AROM L Shoulder Flex: 170 Degrees L Shoulder ABduction: 180 Degrees L Shoulder Internal Rotation (Functional): able to reach to low back L Shoulder External Rotation (Functional): able to reach behind head UE PROM L Shoulder Flex: 170 Degrees L Shoulder ABduction: 180 Degrees L Shoulder Internal Rotation: 75 Degrees L Shoulder External Rotation: 85 Degrees UE and Cervical Strength R UE Strength: 4+/5 L UE Strength: 4+/5 Gait Gait Observation: independent, no gait deviations or loss of balance TREATMENT: Therapeutic Activity: 1: reassessment 2: PROM stretching for left UE Skilled Intervention: Education - discussed plan of care. Billing Therapeutic Activity Treatment Minutes: 40 Skilled Treatment Time Minutes (timed and untimed codes): 40 Total Session Time (minutes): 40 Session Start Time : 1635 Session Stop Time : 1715 Milagros Brown PT documented in this encounter [facility] 12-21-2024 Telephone encounter Note Done. Luis Alberto Raman APRN.CNP [facility] 12-21-2024 Miscellaneous Notes Done. Luis Alberto Raman APRN.CNP documented in this encounter [facility] 12-18-2024 History of Present illness Narrative Images from the original note were not included. [facility] SECTION OF REGIONAL CARDIOLOGY OUTPATIENT VISIT DATE 12/18/2024 OUTPATIENT VISIT TYPE NEW PRIMARY CARE PHYSICIAN: Jacinta Rivas [address] [place] [address] Patient is being seen at the request of the referring physician for palpitations, hypertension HISTORY OF PRESENT ILLNESS: Mrs. Sorto is a 64 year old female, history of metastatic breast cancer, history of reduced global longitudinal strain, CKD, anemia related to CKD, hypertension, hyperlipidemia, primary biliary cirrhosis is referred for hypertension and palpitations. She denies chest pain, SOB, orthopnea, PND, leg swelling, lightheadedness, syncope. Ziopatch 06/2024: min HR of 58 bpm, max HR of 190 bpm, and avg HR of 86 bpm. Predominant underlying rhythm was Sinus Rhythm. 73 SVT runs occurred, the run with the fastest interval lasting 5 beats with a max rate of 190 bpm, the longest lasting 17.0 secs with an avg rate of 131 bpm. SVT was detected within +/- 45 seconds of symptomatic patient event(s). Isolated SVEs were rare (< 1.0%), SVE Couplets were rare (<1.0%), and SVE Triplets were rare (<1.0%). Isolated VEs were rare (<1.0%), VE Couplets were rare (<1.0%), and no VE Triplets were present. CT cardiac 12/10/24: Mild coronary artery calcification. TTE 08/27/2023: EF 59% [prior EF 66%], borderline global longitudinal strain -15.5, RVSP 36, ascending aorta 3.5 cm She was seen by cardiology provider Paulo WELLS on 11/02/2024. Currently off losartan and HCTZ. Per her 11/02/24 cardiology note, her losartan was reduced to 25 mg daily due to elevated creatinine. Her former welder gas tungsten arc recommended lipid-lowering agent however she declined at that time. He recommended calcium score and repeat echocardiogram. She is awaiting the results on her repeat echocardiogram done at [place]. PAST MEDICAL HISTORY Diagnosis Date Anemia in stage 3b chronic kidney disease (HCC) 12/03/2024 Breast CA (HCC) 09/2017 Breast cyst, left 2007 Carcinoma of left breast metastatic to skin (HCC) 08/01/2022 Dehydration 10/30/2022 Functional diarrhea 09/20/2022 HTN (hypertension) Iron malabsorption (HCC) 12/03/2024 Malignant neoplasm of left breast in female, estrogen receptor positive (HCC) 08/01/2022 Primary biliary cirrhosis (HCC) followed by Dr. Husam Hart in [place] PAST SURGICAL HISTORY Procedure Laterality Date ARTHRP ACETBLR/PROX FEM PROSTC AGRFT/ALGRFT Right 03/20/2019 Hip replacement, total ARTHRP KNE CONDYLE&PLATU MEDIAL&LAT COMPARTMENTS Left 02/2016 BIOPSY BREAST OPEN INCISIONAL Left 2007 [facility] benign pathology per patient BREAST RECONSTRUCTION Left 2018 fat graft/implant exchange DELIVERY ONLY 1996,1993 , low transverse MASTECTOMY HX Left 2017 AND with immediate reconstruction MASTECTOMY, SIMPLE, COMPLETE Left 05/18/2024 removal of implant, WLE of chest wall PAST SURGICAL HISTORY OF 2022 bronchoscopy SOCIAL HISTORY[1] FAMILY HISTORY Problem Relation Age of Onset Diabetes Mother Heart disease Mother Diabetes Father Hypertension Sister Hypertension Brother twin No Known Problems Son No Known Problems Son Hearing Loss Maternal Grandmother Heart disease Maternal Grandmother other (Lung Cancer) Maternal Grandfather smoker Diabetes Paternal Grandmother other (Lung Cancer) Paternal Grandfather smoker Anesthesia Problems No Family History ALLERGIES Allergen Reactions Amoxicillin Rash rash arms trunk neck face, itching Chills Tolerates Ancef CURRENT MEDICATIONS: atorvastatin (LIPITOR) 40 mg tablet Take 1 tablet by mouth once daily. nitrofurantoin monohydrate and macrocrystal (MACROBID) 100 mg capsule Take 1 capsule by mouth two times a day for 7 days. FOR 7 DAYS. nitrofurantoin monohydrate and macrocrystal (MACROBID) 100 mg capsule Take 1 capsule by mouth two times a day with meals for 7 days. potassium chloride ER (KLOR-CON) 20 mEq tablet TAKE 1 TABLET BY MOUTH TWICE A DAY lidocaine-prilocaine (EMLA) 2.5-2.5 % cream Apply to affected area as needed. tirzepatide (MOUNJARO) 2.5 mg/0.5 mL pen injector Inject 2.5 mg subcutaneously one time a week. (Patient not taking: Reported on 12/15/2024) losartan (COZAAR) 100 mg tablet Take 0.5 tablets by mouth every afternoon. (Patient not taking: Reported on 12/15/2024) hydroCHLOROthiazide 12.5 mg capsule Take 1 capsule by mouth once daily. (Patient not taking: Reported on 12/15/2024) insulin glargine (LANTUS SOLOSTAR U-100 INSULIN) 100 unit/mL (3 mL) Inject 30 Units subcutaneously every morning. DROPLET PEN NEEDLE 31 gauge x 3/16 1 each two times a day. amLODIPine (NORVASC) 5 mg tablet Take 5 mg by mouth once daily. traZODone (DESYREL) 50 mg tablet Take 1 tablet by mouth daily at bedtime. metoprolol succinate ER (TOPROL XL) 25 mg 24 hr tablet take 1 tablet by mouth once daily (Patient not taking: Reported on 12/15/2024) exemestane (AROMASIN) 25 mg tablet Take 1 tablet by mouth once daily. (Patient not taking: Reported on 12/15/2024) ursodiol (LEENA) 250 mg tablet Take 250 mg by mouth two times a day. everolimus, antineoplastic, (AFINITOR) 10 mg tablet TAKE 1 TABLET ONCE DAILY Sodium Fluoride, Dental Rinse, 0.2 % SWISH 10 ML BY MOUTH THEN SPIT ONCE WEEKLY diphenhydrAMINE-Acetaminophen (TYLENOL PM EXTRA STRENGTH) 25-500 mg tab Take 1 tablet by mouth at bedtime as needed. mycujooUCH ULTRA PLUS TEST strp 1 Each two [...] once daily. VITAMIN D 50,000 unit capsule Take 1 capsule by mouth one time a week. CALCIUM CARBONATE (CALCIUM 500 ORAL) Take 1 tablet by mouth once daily. PHYSICAL EXAMINATION: BP 132/86 (BP Position: Sitting) Pulse 91 Ht 167.6 cm (5' 6) Wt 80.2 kg (176 lb 12.9 oz) SpO2 100% BMI 28.54 kg/m General: Appears comfortable in no apparent cardiopulmonary distress Neck: No JVD, no bruits CVS: S1, S2, No m/r/g Chest: CTAB Abd: Soft, nontender, no masses, BS present Ext: No pedal edema, pedal pulses 2+ bilaterally Neuro: No focal neurological deficits CARDIOVASCULAR MEDICINE TESTING: Last ECHO Result Conclusion ECHO Collected: 08/27/2023 9:51 AM (Edited Result - FINAL) Impression: CONCLUSIONS: - Technically difficult exam due to [...] RVSP was 39mmHg. Prior EF was 66%. * * * Final (Updating) * * * Last EKG Result Conclusion ECG COMPLETE Collected: 12/17/2022 3:09 PM (Final result) Impression: NORMAL SINUS RHYTHM NORMAL ECG Confirmed by JOSH BENDER D.O. ([id number]) on 12/21/2022 2:39:12 PM ASSESSMENT/PLAN: 1. Coronary artery calcification - ICD9: 414.00, ICD10: I25.10 (primary diagnosis) Noted to have mild CAC. Calculated ASCVD 20.4% - Discussed initiation of high intensity statin such as atorvastatin 40 mg p.o. daily and repeat lipids and LFTs in 4 to 6 weeks. Goal LDL less than 70. - Low cholesterol diet- limit/ avoid red meats and processed foods, focus on lean portions of white meat- chicken and turkey breast, fish, healthy nuts, fruits, vegetables. - Aim to gradually achieve at least 30 minutes of moderate intensity aerobic exercise 5 times per week-biking, brisk walking, hiking, swimming, rowing. - RTC in 1 year 2. Palpitations - ICD9: 785.1, ICD10: R00.2 Stable Ziopatch monitor results as above-brief PSVT - She would like to continue to monitor. She is advised to keep us informed if her palpitations increase in frequency or duration. 3. Primary hypertension - ICD9: 401.9, ICD10: I10 She states that her losartan and HCTZ were stopped due to elevated creatinine. Peak creatinine 2.77 on 11/20/2024. Since then, her creatinine has improved currently at 1.08 - On amlodipine 5 mg p.o. daily. She is advised to monitor her home blood pressures and keep us or her PCP/safety aide informed. 4. Breast cancer - She has been having her echocardiograms monitored. She will inform Sharad to fax her echocardiogram results to our office. David Armstrong MD, [facility] Non Invasive and Sports [employer] Punch And Coiler Operator [1] Social History Tobacco Use Smoking status: Never Passive exposure: Never Smokeless tobacco: Never Vaping Use Vaping status: Never Used Substance Use Topics Alcohol use: Yes Comment: 2 drinks per month Drug use: Never documented in this encounter [facility] 12-17-2024 Telephone encounter Note Called pt and had to leave message. Sesar Gunn [facility] 12-17-2024 Miscellaneous Notes Called pt and had to leave message. Sesar Gunn Images from the original note were not included. Garth Reza MD Smith-Mizik, Marryssa Anne Stop asa 1 week Start macrobid 3 d prior and get urine cx 10 days prior Plan R stent eswl documented in this encounter [facility] 12-17-2024 History of Present illness Narrative Plastic Surgery Note CC: Follow Up HPI: Pat Sorto is a 64 year old female who presents s/p Date of Surgery: 05/18/2024 Surgery: Left Breast Total Capsulectomy and Implant Removal Time Postop: 7 months 06/04 35 cc seroma aspirated from left breast 06/25 60 cc seroma aspirated from left breast 07/06 40 cc seroma aspirated from left breast 07/15 25 cc seroma aspirated from left breast 08/03 19 cc seroma aspirated from left breast No symptoms or signs of infection (no N/V/F/C, no wound drainage and no new redness) Has prosthetic from [place], is not interested in any further reconstruction Reports tenderness at area of scar tissue Hx Radiation Therapy: Yes- completed 12/2017 Hx Chemotherapy: Yes- completed in 2018 Hx of DM, on insulin HBa1c 7.7 on 09/22/24 Patient is here today to review ICG results Consult to lymphedema therapy placed NITHIN- she has been seeing Noe Jackson, last visit 12/03/24. She has been wearing compression sleeve for the left arm-states she feels like she needs a larger garment because the sleeve is too tight Lymphatec measurements Length: 42cm Left arm: 3835 mL Right arm: 2480 mL 11/10/2024 SOZO Review BMI 29.81 Extremity measured Right arm Pacemaker/ Defibrillator/ Possible No Dominant Side Right Bilateral/ Unilateral Measurement Unilateral Patient Position Standing LDEX Result -- LDEX Score -54.4 Provider notified Yes Another SOZO Measurement needed Yes Extremity measured Left Arm Pacemaker/ Defibrillator/ Possible No Dominant Side Right Bilateral/ Unilateral Measurement Unilateral Patient Position Standing LDEX Result -- LDEX Score 108.7 Provider notified Yes Another SOZO Measurement needed No Wound culture from 06/25/24 WOUND CULTURE No growth Smear Result No organisms seen No Polymorphonuclear Leukocytes Surgical pathology FINAL DIAGNOSIS 1. 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 2. Left breast implant, excision and removal (B) - Amorphous acellular material. -Breast implant (gross evaluation only). 3. Left breast, inframammary fold, excision (C) - Invasive ductal carcinoma, [place] grade 3, spanning greater than 50 mm, involving capsule, subcutis, dermis and epidermis (including ulceration), (see comment). 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 Husam Hart in [place] PAST SURGICAL HISTORY Procedure Laterality Date ARTHRP ACETBLR/PROX FEM PROSTC AGRFT/ALGRFT Right 03/20/2019 Hip replacement, total ARTHRP KNE CONDYLE&PLATU MEDIAL&LAT COMPARTMENTS Left 02/2016 BIOPSY BREAST OPEN INCISIONAL Left 2007 [facility] benign pathology per patient BREAST RECONSTRUCTION Left [...] tablet by mouth at bedtime as needed. Whisk (formerly Zypsee) ULTRA PLUS TEST strp 1 Each two [...] medications on file prior to visit. BP 165/103 Pulse 93 Temp 36.1 C (97 F) (Temporal) SpO2 98% PE Alert and oriented in NAD on room air Left breast flat closure, no fluid palpated on exam today Incisions c/d/I Swelling of left arm and hand ASSESSMENT/PLAN: (I89.0) Lymphedema (primary encounter diagnosis) (Z85.3) History of breast cancer (Z98.890) History of breast reconstruction post operative state Hx of left chest wall radiation -Submitted for LVB today, case message sent to surgical nurse -Photos taken 11/10/24 -Consent obtained for Left arm lymphatic reconstruction with lymphaticovenous bypass, indocyanine green (ICG) lymphangiography, possible liposuction -Recommended patient get re-fitted for new compression garment. Advised patient wear compression garment 24/7. Continue lymphedema therapy. -ok to cancel appointment on 12/22 as breast exam was performed today Encouraged patient to communicate through MyChart for all non-urgent questions or concerns. Return to clinic in 3 months The patient is seen and examined by Dr Marcelino and the following reflects her service. Scribed by Romana Schulte RN I agree with the Chief Complaint, ROS, and Past Histories independently gathered by the clinical other sales support worker and the remaining scribed note accurately describes my personal service to the patient. I spent 30 minutes in the visit, with more than 50% of the total [id number] time of the visit in counseling / coordination of care. Office visit on 09/03/2024: She has significant left upper extremity lymphedema which goes to her hand and makes holding a golf club difficult. She has not started compression yet. I discussed the importance of proper therapy. I will have her see Palomo for measurements and ICG and look to do a LVB. Today's visit 12/16/2024: She has left upper extremity lymphedema as evidenced by ICG lymphography. She needs to continue aggressive PT and compression. We will submit for LVB possible liposuction. We discussed the risks and benefits of prophylactic and treatment lymphovenous bypass including but not limited to: bleeding, infeciton, venous thrombosis, lack of improvement, lack of prevention or worsening of lymphedema symptoms. The abdomen is soft without tenderness, guarding, mass or organomegaly. Bowel sounds are normal. No CVA tenderness or inguinal adenopathy noted. Micki Marcelino MD documented in this encounter [facility] 12-17-2024 Telephone encounter Note Images from the original note were not included. Garth Reza MD Smith-Mizik, Marryssa Anne Stop asa 1 week Start macrobid 3 d prior and get urine cx 10 days prior Plan R stent eswl [facility] 12-16-2024 Note HNO ID: [id number] Author: GARTH REZA MD Service: ? Author Type: Physician Type: Progress Notes Filed: 12/16/2024 17:05 Note Text: [facility] NEW PATIENT ENCOUNTER Consultation requested by Jacinta Dorsey for an opinion regarding Nay. My final recommendations will be communicated back to the requesting physician by way of shared Medical record or letter to requesting physician via US mail. HISTORY OF PRESENT ILLNESS: Patient presents with: Consult recurrent uti: New patient here for recurrent UTI PVR 0ml she is on estrogen, exemestane, and everolimus. For breast cancer. She has been getting more UTI's in the past 2 years Pat Sorto is a 64 year old female who never had uti prior last 2-3 yrs, no hematuria, No prior stones or colic had large R stones since 2022, Plan R eswl, stent, the later use/laser Review of Systems LAB No results found for: PSA, PSASC Creatinine Date Value Ref Range Status 12/15/2024 1.08 (H) 0.58 - 0.96 mg/dL Final GLUCOSE UA (POCT) (mg/dL) Date Value 12/16/2024 Negative BILIRUBIN UA (POCT) (no units) Date Value 12/16/2024 Negative KETONE UA (POCT) (mg/dL) Date Value 12/16/2024 Negative SPECIFIC GRAVITY UA (POCT) (no units) Date Value 12/16/2024 1.020 HEMOGLOBIN/BLOOD UA (POCT) (no units) Date Value 12/16/2024 Large (A) PH UA (POCT) (no units) Date Value 12/16/2024 5.5 PROTEIN UA (POCT) (mg/dL) Date Value 12/16/2024 30 (A) UROBILINOGEN UA (POCT) (E.U./dL) Date Value 12/16/2024 0.2 NITRITE UA (POCT) (no units) Date Value 12/16/2024 Negative LEUKOCYTES UA (POCT) (no units) Date Value 12/16/2024 Moderate (A) COLOR UA (POCT) (no units) Date Value 12/16/2024 Yellow CLARITY UA (POCT) (no units) Date Value 12/16/2024 Clear ] MEDICATIONS potassium chloride ER (KLOR-CON) 20 mEq tablet TAKE 1 TABLET BY MOUTH TWICE A DAY lidocaine-prilocaine (EMLA) 2.5-2.5 % cream Apply to affected area as needed. insulin glargine (LANTUS SOLOSTAR U-100 INSULIN) 100 unit/mL (3 mL) Inject 30 Units subcutaneously every morning. DROPLET PEN NEEDLE 31 gauge x 3/16 1 each two times a day. amLODIPine (NORVASC) 5 mg tablet Take 5 mg by mouth once daily. traZODone (DESYREL) 50 mg tablet Take 1 tablet by mouth daily at bedtime. ursodiol (LEENA) 250 mg tablet Take 250 [...] once daily. VITAMIN D 50,000 unit capsule Take 1 capsule by mouth one time a week. CALCIUM CARBONATE (CALCIUM 500 ORAL) Take 1 tablet by mouth once daily. nitrofurantoin monohydrate and macrocrystal (MACROBID) 100 mg capsule Take 1 capsule by mouth two times a day with meals for 7 days. tirzepatide (MOUNJARO) 2.5 mg/0.5 mL pen injector Inject 2.5 mg subcutaneously one time a week. (Patient not taking: Reported on 12/15/2024) losartan (COZAAR) 100 mg tablet Take 0.5 tablets by mouth every afternoon. (Patient not taking: Reported on 12/15/2024) hydroCHLOROthiazide 12.5 mg capsule Take 1 capsule by mouth once daily. (Patient not taking: Reported on 12/15/2024) metoprolol succinate ER (TOPROL XL) 25 mg 24 hr tablet take 1 tablet by mouth once daily (Patient not taking: Reported on 12/15/2024) exemestane (AROMASIN) 25 mg tablet Take 1 tablet by mouth once daily. (Patient not taking: Reported on 12/15/2024) HISTORIES PAST MEDICAL HISTORY Diagnosis Date Anemia in stage 3b chronic kidney disease (HCC) 12/03/2024 Breast CA (HCC) 09/2017 Breast cyst, left 2007 Carcinoma of left breast metastatic to skin (HCC) 08/01/2022 Dehydration 10/30/2022 Functional diarrhea 09/20/2022 HTN (hypertension) Iron malabsorption (HCC) 12/03/2024 Malignant neoplasm of left breast in female, estrogen receptor positive (HCC) 08/01/2022 Primary biliary cirrhosis (HCC) followed by Dr. Husam Hart in [place] PAST SURGICAL HISTORY Procedure Laterality Date ARTHRP ACETBLR/PROX FEM PROSTC AGRFT/ALGRFT Right 03/20/2019 Hip replacement, total ARTHRP K (more content not included)... [facility] 12-16-2024 History of Present illness Narrative Images from the original note were not included. [facility] NEW PATIENT ENCOUNTER Consultation requested by Jacinta Doresy for an opinion regarding Nay. My final recommendations will be communicated back to the requesting physician by way of shared Medical record or letter to requesting physician via US mail. HISTORY OF PRESENT ILLNESS: Patient presents with: Consult recurrent uti: New patient here for recurrent UTI PVR 0ml she is on estrogen, exemestane, and everolimus. For breast cancer. She has been getting more UTI's in the past 2 years Pat Sorto is a 64 year old female who never had uti prior last 2-3 yrs, no hematuria, No prior stones or colic had large R stones since 2022, Plan R eswl, stent, the later use/laser Review of Systems LAB No results found for: PSA, PSASC Creatinine Date Value Ref Range Status 12/15/2024 1.08 (H) 0.58 - 0.96 mg/dL Final GLUCOSE UA (POCT) (mg/dL) Date Value 12/16/2024 Negative BILIRUBIN UA (POCT) (no units) Date Value 12/16/2024 Negative KETONE UA (POCT) (mg/dL) Date Value 12/16/2024 Negative SPECIFIC GRAVITY UA (POCT) (no units) Date Value 12/16/2024 1.020 HEMOGLOBIN/BLOOD UA (POCT) (no units) Date Value 12/16/2024 Large (A) PH UA (POCT) (no units) Date Value 12/16/2024 5.5 PROTEIN UA (POCT) (mg/dL) Date Value 12/16/2024 30 (A) UROBILINOGEN UA (POCT) (E.U./dL) Date Value 12/16/2024 0.2 NITRITE UA (POCT) (no units) Date Value 12/16/2024 Negative LEUKOCYTES UA (POCT) (no units) Date Value 12/16/2024 Moderate (A) COLOR UA (POCT) (no units) Date Value 12/16/2024 Yellow CLARITY UA (POCT) (no units) Date Value 12/16/2024 Clear ] MEDICATIONS potassium chloride ER (KLOR-CON) 20 mEq tablet TAKE 1 TABLET BY MOUTH TWICE A DAY lidocaine-prilocaine (EMLA) 2.5-2.5 % cream Apply to affected area as needed. insulin glargine (LANTUS SOLOSTAR U-100 INSULIN) 100 unit/mL (3 mL) Inject 30 Units subcutaneously every morning. DROPLET PEN NEEDLE 31 gauge x 3/16 1 each two times a day. amLODIPine (NORVASC) 5 mg tablet Take 5 mg by mouth once daily. traZODone (DESYREL) 50 mg tablet Take 1 tablet by mouth daily at bedtime. ursodiol (LEENA) 250 mg tablet Take 250 [...] once daily. VITAMIN D 50,000 unit capsule Take 1 capsule by mouth one time a week. CALCIUM CARBONATE (CALCIUM 500 ORAL) Take 1 tablet by mouth once daily. nitrofurantoin monohydrate and macrocrystal (MACROBID) 100 mg capsule Take 1 capsule by mouth two times a day with meals for 7 days. tirzepatide (MOUNJARO) 2.5 mg/0.5 mL pen injector Inject 2.5 mg subcutaneously one time a week. (Patient not taking: Reported on 12/15/2024) losartan (COZAAR) 100 mg tablet Take 0.5 tablets by mouth every afternoon. (Patient not taking: Reported on 12/15/2024) hydroCHLOROthiazide 12.5 mg capsule Take 1 capsule by mouth once daily. (Patient not taking: Reported on 12/15/2024) metoprolol succinate ER (TOPROL XL) 25 mg 24 hr tablet take 1 tablet by mouth once daily (Patient not taking: Reported on 12/15/2024) exemestane (AROMASIN) 25 mg tablet Take 1 tablet by mouth once daily. (Patient not taking: Reported on 12/15/2024) HISTORIES PAST MEDICAL HISTORY Diagnosis Date Anemia in stage 3b chronic kidney disease (HCC) 12/03/2024 Breast CA (HCC) 09/2017 Breast cyst, left 2008 Carcinoma of left breast metastatic to skin (HCC) 08/01/2022 Dehydration 10/30/2022 Functional diarrhea 09/20/2022 HTN (hypertension) Iron malabsorption (HCC) 12/03/2024 Malignant neoplasm of left breast in female, estrogen receptor positive (HCC) 08/01/2022 Primary biliary cirrhosis (HCC) followed by Dr. Husam Hart in [place] PAST SURGICAL HISTORY Procedure Laterality Date ARTHRP ACETBLR/PROX FEM PROSTC AGRFT/ALGRFT Right 03/20/2019 Hip replacement, total ARTHRP KNE CONDYLE&PLATU MEDIAL&LAT COMPARTMENTS Left 02/2016 BIOPSY BREAST OPEN INCISIONAL Left 2007 [facility] benign pathology per patient BREAST RECONSTRUCTION Left [...] Grandfather smoker Anesthesia Problems No Family History SOCIAL HISTORY SOCIAL HISTORY[1] Ht 167.6 cm (5' 6) Wt 78.5 kg (173 lb) BMI 27.92 kg/m Physical Exam ASSESSMENT & PLAN ASSESSMENT/PLAN: 1. Urinary frequency - ICD9: 788.41, ICD10: R35.0 (primary diagnosis) 2. Recurrent UTI - ICD9: 599.0, ICD10: N39.0 02/05/22 kleb 09/07/24, 09/22/24 , 10/07/2024 e.coli - BLADDER SCAN 0 cc - BACTERIAL CULTURE, URINE 3. Malignant neoplasm of lower-outer quadrant of left breast of female, estrogen receptor positive (HCC) - ICD9: 174.5, V86.0, ICD10: C50.512, Z17.0 10/08/17 L mastectomy and nodes + Adjuvant radiation to left chest wall/axilla and supraclavicular area completed 01/02/2018. 4. 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 Renal stones - ICD9: 592.0, ICD10: N20.0 No prior stones or colic, incidental 2022 pt not aware 09/23/24 JACQUELINE --R 1.6cm stone? Seen on pet/ct 01/28/23, 04/06/24, 10/26/24 Plan ESWL/stent then clear with use if needed Garth Reza MD This note was partially created using voice recognition software and is inherently subject to errors including those of syntax and sound-alike substitutions which may escape proofreading. In such instances, original meaning may be extrapolated by contextual derivation. [1] Social History Tobacco Use Smoking status: Never Passive exposure: Never Smokeless tobacco: Never Vaping Use Vaping status: Never Used Substance Use Topics Alcohol use: Yes Comment: 2 drinks per month Drug use: Never documented in this encounter [facility] 12-15-2024 History of Present illness Narrative SUBJECTIVE: HPI [...] With Long-Term Current Use of Insulin (Hcc) Hypokalemia Anemia in Stage 3b Chronic Kidney Disease (Hcc) Iron Malabsorption (Hcc) Presents for UTI symptoms. Urinary Tract Infections: - Symptoms x5 days. - Pat has had multiple UTIs in the past. - Pat has been on 5-6 different antibiotics for UTIs; last antibiotic seemed effective. - Last Macrobid use was 3 months ago. - Pat does not see a urologist. Creatinine Date Value Ref Range Status 12/15/2024 1.08 (H) 0.58 - 0.96 mg/dL Final 11/27/2024 1.58 (H) 0.58 - 0.96 mg/dL Final 11/20/2024 2.77 (H) 0.58 - 0.96 mg/dL Final 11/09/2024 1.89 (H) 0.58 - 0.96 mg/dL Final Review of Systems see HPI Objective BP 144/98 Pulse 98 Resp 16 Wt 80 kg (176 lb 5.9 oz) SpO2 100% BMI 28.47 kg/m Physical Exam Vitals and nursing note [...] neck face, itching Chills Tolerates Ancef Medications potassium chloride ER (KLOR-CON) 20 mEq tablet TAKE 1 TABLET BY MOUTH TWICE A DAY lidocaine-prilocaine (EMLA) 2.5-2.5 % cream Apply to affected area as needed. insulin glargine (LANTUS SOLOSTAR U-100 INSULIN) 100 unit/mL (3 mL) Inject 30 Units subcutaneously every morning. DROPLET PEN NEEDLE 31 gauge x 3/16 1 each two times a day. amLODIPine (NORVASC) 5 mg tablet Take 5 mg by mouth once daily. traZODone (DESYREL) 50 mg tablet Take 1 tablet by mouth daily at bedtime. ursodiol (LEENA) 250 mg tablet Take 250 [...] once daily. VITAMIN D 50,000 unit capsule Take 1 capsule by mouth one time a week. CALCIUM CARBONATE (CALCIUM 500 ORAL) Take 1 tablet by mouth once daily. nitrofurantoin monohydrate and macrocrystal (MACROBID) 100 mg capsule Take 1 capsule by mouth two times a day with meals for 7 days. tirzepatide (MOUNJARO) 2.5 mg/0.5 mL pen injector Inject 2.5 mg subcutaneously one time a week. (Patient not taking: Reported on 12/15/2024) losartan (COZAAR) 100 mg tablet Take 0.5 tablets by mouth every afternoon. (Patient not taking: Reported on 12/15/2024) hydroCHLOROthiazide 12.5 mg capsule Take 1 capsule by mouth once daily. (Patient not taking: Reported on 12/15/2024) metoprolol succinate ER (TOPROL XL) 25 mg 24 hr tablet take 1 tablet by mouth once daily (Patient not taking: Reported on 12/15/2024) exemestane (AROMASIN) 25 mg tablet Take 1 tablet by mouth once daily. (Patient not taking: Reported on 12/15/2024) PAST MEDICAL HISTORY Diagnosis Date Anemia in stage 3b chronic kidney disease (HCC) 12/03/2024 Breast CA (HCC) 09/2017 Breast cyst, left 2007 Carcinoma of left breast metastatic to skin (HCC) 08/01/2022 Dehydration 10/30/2022 Functional diarrhea 09/20/2022 HTN (hypertension) Iron malabsorption (HCC) 12/03/2024 Malignant neoplasm of left breast in female, estrogen receptor positive (HCC) 08/01/2022 Primary biliary cirrhosis (HCC) followed by Dr. Husam Hart in [place] Social History Tobacco Use Smoking status: Never Passive exposure: Never Smokeless tobacco: Never Vaping Use Vaping status: Never Used Substance Use Topics Alcohol use: Yes Comment: 2 drinks per month Drug use: Never 1. UTI symptoms (R39.9) - Symptoms include dysuria, fatigue, and urinary urgency; mild abdominal discomfort noted but improving. - UA in office confirms UTI. Prescribed antibiotic. She has had recurrent UTIs. Recommend recheck urinalysis in 3 to 4 weeks. Consider seeing a urogynecologist, consult placed. Cathy Burr APRN.CNS Medical Decision Making: Medical Decision Making Level: 1 - N/A documented in this encounter [facility] 12-14-2024 History of Present illness Narrative [facility] Medical Nutrition Therapy Visit Type: In-Person Patient states reason for visit: Type 2 Diabetes Management Initial DEMOGRAPHICS: Co-Morbidities: PAST MEDICAL HISTORY Diagnosis Date Breast CA (HCC) 09/2017 Breast cyst, left 2007 Carcinoma of left breast metastatic to skin (HCC) 08/01/2022 Dehydration 10/30/2022 Functional diarrhea 09/20/2022 HTN (hypertension) Malignant neoplasm of left breast in female, estrogen receptor positive (HCC) 08/01/2022 Primary biliary cirrhosis (HCC) followed by Dr. Husam Hart in [place] Activity: Do you regularly exercise? Yes - Activities: walking - Frequency: daily Symptoms: Patient's symptoms are as follows: Blood sugar regulation How many hours of sleep on average? 8-8.5 hours, interrupted - Relates/Declines difficulty staying asleep d/t need for restroom. Take trazadone to assist w/ sleep. Diet History: Breakfast: toast w/ 1-2 eggs and w/ or w/o yogurt or fruit (cantalope/peaches) Lunch: may skip if late lunch, or grilled cheese, soup Snack (3P): fruit Dinner (6:30P): Roast chicken w/ dutch salad (cucumber salad), or hamburger, or steak w/ grilled zucchini and potatoes, or spaghetti Snack: dutch yogurt Fluids: Water, 3 ounces OJ (occasionally), pop (regular mini can 2x/week) ETOH: none Dining/eating out? 2 x/week (take out- [place] or [place] [employer] or el tap [[employer]]) Allergies: No Food Allergy Patient / Provider Comments: - Undergoing chemo treatment for breast cancer. - Current DM medications: Lantus (25 units currently), Mounjaro (currently not taking) - Monitoring BG with 1 times per day -- FBG: over past 5 days:162, 127, 143, 132, 101, 110, 96, 103- pt notes afinitor (for cancer treatment) medication increases BG, was off for a few weeks and BG readings were decreased, pt states BG begin to spike when resumes medication. - Hypoglycemic events: denies having experienced - Hyperglycemic events: none recently- in the past 250-300 mg/dl felt yucky around time when first diagnosed. - Initial DM dx: 2023 - Recent A1C: 7.7% September 2024 Medications: Current Outpatient Medications Medication Sig potassium chloride ER (KLOR-CON) 20 mEq tablet Take 1 tablet by mouth two times a day. tirzepatide (MOUNJARO) 2.5 mg/0.5 mL pen injector Inject 2.5 mg subcutaneously one time a week. (Patient not taking: Reported on 11/20/2024) losartan (COZAAR) 100 mg tablet Take 0.5 tablets by mouth every afternoon. (Patient not taking: Reported on 11/20/2024) hydroCHLOROthiazide 12.5 mg capsule Take 1 capsule by mouth once daily. (Patient not taking: Reported on 11/20/2024) insulin glargine (LANTUS SOLOSTAR U-100 INSULIN) 100 unit/mL (3 mL) Inject 30 Units subcutaneously every morning. DROPLET PEN NEEDLE 31 gauge x 3/16 1 each two times a day. amLODIPine (NORVASC) 5 mg tablet Take 5 mg by mouth once daily. traZODone (DESYREL) 50 mg tablet Take 1 tablet by mouth daily at bedtime. metoprolol succinate ER (TOPROL XL) 25 mg 24 hr tablet take 1 tablet by mouth once daily (Patient not taking: Reported on 11/20/2024) exemestane (AROMASIN) 25 mg tablet Take 1 tablet by mouth once daily. (Patient not taking: Reported on 11/20/2024) ursodiol (LEENA) 250 mg tablet Take 250 mg by mouth two times a day. everolimus, antineoplastic, (AFINITOR) 10 mg tablet TAKE 1 TABLET ONCE DAILY Sodium Fluoride, Dental Rinse, 0.2 % SWISH 10 ML BY MOUTH THEN SPIT ONCE WEEKLY diphenhydrAMINE-Acetaminophen (TYLENOL PM EXTRA STRENGTH) 25-500 mg tab Take 1 tablet by mouth at bedtime as needed. [employer] Pool TechnologiesTOUCH ULTRA PLUS TEST strp 1 Each two [...] once daily. VITAMIN D 50,000 unit capsule Take 1 capsule by mouth one time a week. CALCIUM CARBONATE (CALCIUM 500 ORAL) Take 1 tablet by mouth once daily. No current facility-administered medications for this visit. Labs: Lab Results Component Value Date HBA1C 7.7 09/22/2024 HBA1C 6.8 07/08/2024 HBA1C 7.2 03/18/2024 HBA1C 9.1 07/16/2023 HBA1C 6.1 03/11/2023 HBA1C 5.9 02/19/2022 HBA1C 5.6 10/07/2018 HBA1C 5.7 05/20/2018 Total Cholesterol, Nonfasting Date Value Ref Range Status 09/22/2024 231 (H) <200 mg/dL Final Comment: <200 mg/dL, Desirable 200-239 mg/dL, Borderline high >239 mg/dL, High HDL Cholesterol, Nonfasting Date Value Ref Range Status 09/22/2024 29 (L) >39 mg/dL Final Comment: 40-59 mg/dL, Acceptable >59 mg/dL, High: Negative risk factor for coronary heart disease <40 mg/dL, Low: Positive risk factor for coronary heart disease LDL Cholesterol Calculated, Nonfasting Date Value Ref Range Status 09/22/2024 116 (H) <100 mg/dL Final Comment: <100 mg/dL, Optimal 100-129 mg/dL, Near optimal/above optimal 130-159 mg/dL, Borderline high 160-189 mg/dL, High >189 mg/dL, Very high Secondary prevention optimal LDL Cholesterol levels are recommended to be <70 mg/dL LDL cholesterol is calculated using the Fernandez-NIH equation. Triglycerides, Nonfasting Date Value Ref Range Status 09/22/2024 491 (H) <150 mg/dL Final Comment: <150 mg/dL, Normal 150-199 mg/dL, Borderline high 200-499 mg/dL, High >499 mg/dL, Very high Glucose (mg/dL) Date Value 11/20/2024 136 02/15/2021 148 Potassium (mmol/L) Date Value 11/20/2024 3.0 02/15/2021 3.9 Sodium (mmol/L) Date Value 11/20/2024 138 02/15/2021 136 Chloride (mmol/L) Date Value 11/20/2024 102 02/15/2021 102 CO2 (mmol/L) Date Value 11/20/2024 21 02/15/2021 23 Creatinine (mg/dL) Date Value 11/20/2024 2.77 02/15/2021 0.96 BUN (mg/dL) Date Value 11/20/2024 30 02/15/2021 29 Anion Gap (mmol/L) Date Value 11/20/2024 15 02/15/2021 11 Calcium (mg/dL) Date Value 02/15/2021 9.1 Calcium, Total (mg/dL) Date Value 11/20/2024 8.9 Protein, Total (g/dL) Date Value 11/20/2024 7.2 02/15/2021 6.9 Albumin (g/dL) Date Value 11/20/2024 3.5 02/15/2021 3.9 Bilirubin, Total (mg/dL) Date Value 11/20/2024 0.3 02/15/2021 0.3 Alkaline Phosphatase (U/L) Date Value 11/20/2024 75 02/15/2021 56 AST (U/L) Date Value 11/20/2024 56 02/15/2021 16 ALT (U/L) Date Value 11/20/2024 43 02/15/2021 15 ANTHROPOMETRICS Height: Last 1 Encounter Ht Readings: Date: Ht: 10/14/2024 166.4 cm (5' 5.5) Last 10 Encounter Wt Readings: Date: Wt: 11/20/2024 80.7 kg (178 lb) 11/20/2024 81.1 kg (178 lb 12.7 oz) 11/10/2024 82.5 kg (181 lb 14.1 oz) 10/30/2024 81.9 kg (180 lb 8 oz) 10/26/2024 82.1 kg (181 lb) 10/14/2024 81.9 kg (180 lb 9.6 oz) 10/13/2024 81.2 kg (179 lb 0.2 oz) 09/22/2024 78.9 kg (174 lb) 09/07/2024 79 kg (174 lb 2.6 oz) 07/09/2024 75.8 kg (167 lb) BMI: 29.60 kg/m2 5% -10% Weight loss: 9-18 lbs Last Wt 11/23/24 : 80.7 kg (178 lb) 5% weight loss = 169 lbs, 10% weight loss = 160 lbs [place] body weight: 58.2 kg (128 lb 3.2 oz) Adjusted ideal body weight: 67.7 kg (149 lb 2.5 oz) READINESS TO LEARN Cognitive ability: Alert and oriented Motivation to learn: Interested Family support: Unable to assess - Family not present Instruction provided to: Patient Patient learns best by: Multiple Methods Factors affecting learning: None Physical limitations affecting learning: None Stage of Change: Preparation Nutrition Diagnosis: Altered nutrition related laboratory values related to endocrine dysfunction Type 2 Diabetes Mellitus as evidence by elevated HBA1C or altered blood glucose levels. Calories Needed for Current Weight: Resting Metabolic Rate: 1377 Nutrition Intervention: -Healthy Eating: -- Encouraged establishing meals consistency; regularly consume 3 meals per day and snacks as needed. -- Space meals and/or snacks a part by 3-5 hours. -- Plate Method:1/2 plate non-starchy vegetables, 1/4 plate protein, 1/4 plate starch/grain/fruit -- carbohydrate and protein sources and effect on blood sugar regulation and metabolism -- Encouraged to always pair protein and/or healthy fat with CHO sources. Do not consume naked CHO. -- concepts of the Mediterranean diet for healthy carb choices -- CHO counting and foods with carbs, portion sizes, and choosing high fiber CHO sources. -- Recommendation for 30-45 grams carb per meal and 15 grams carb per snack. -- Recommendation for 20-30 grams protein per meal and 7 grams protein per snack. -- Portion sizes for commonly eaten carbohydrate foods -- Food label reading for serving size, total fat, total carbohydrate, fiber, and protein. -- Benefits of fiber in foods and effect on satiety and blood glucose regulation- discussed sources of high fiber foods. -- Importance of including lean protein sources at each meal and snack. -- Importance of including healthy fats such as olive oil, avocado, nuts and fish -- Reviewed sample carb controlled style menus. --Encouraged increased water/fluid consumption to promote healthy hydration and assist with blood sugar regulation- aim to consume water or SF beverages with goal 64 ounces per day. If consuming SSB (ex. OJ or regular pop) have at a meals w/ whole foods and count towards CHO goal range. -- Provided and discussed free nutrition apps that can be useful on nutrition journey. Education Materials: Healthy You: Planning Healthy Meals Nutrition Monitoring & Evaluation: Dietitian Goals: Maintained OR Improved Blood Glucose Control by next A1C test Criteria: Blood Glucose Values and A1C Patient Stated Goals at today's visit: Continue to pair Cho with protein and/or healthy fat at meals. Adherence Potential to Goals: Good Need for Follow up: TBD- encouraged 3-6 month follow up, contact info and scheduling number provided. Referred by: Daisy Titus APRN.C* Erica Lyons RD Consult Billing Type/Increments: Initial Assessment/15 minutes, 2 increment(s), 30 minutes Start time: 10:54 End time: 11:30 My final report will be communicated back to the requesting physician by way of shared medical record. Signed by: Erica Lyons RD documented in this encounter [facility] 12-14-2024 Telephone encounter Note Prescription Refill Information The patient has been identified by name and date of : Yes Caregiver verified no other encounters exist for this prescription request: Yes Caregiver confirmed with patient/requestor that no other refills are due, in the near future, with this provider at this time: Yes The last office visit in the department: 11/20/2024 Does the patient have a future office visit with this provider/department: Yes Requested Prescriptions Pending Prescriptions Disp Refills potassium chloride ER (KLOR-CON) 20 mEq tablet [Pharmacy Med Name: POTASSIUM CL ER 20 MEQ TAB MCR] 180 tablet 1 Sig: TAKE 1 TABLET BY MOUTH TWICE A DAY Kasie Lamb LPN December 14, 2024 7:41 AM [facility] 12-14-2024 Miscellaneous Notes Prescription Refill Information The patient has been identified by name and date of : Yes Caregiver verified no other encounters exist for this prescription request: Yes Caregiver confirmed with patient/requestor that no other refills are due, in the near future, with this provider at this time: Yes The last office visit in the department: 11/20/2024 Does the patient have a future office visit with this provider/department: Yes Requested Prescriptions Pending Prescriptions Disp Refills potassium chloride ER (KLOR-CON) 20 mEq tablet [Pharmacy Med Name: POTASSIUM CL ER 20 MEQ TAB MCR] 180 tablet 1 Sig: TAKE 1 TABLET BY MOUTH TWICE A DAY Kasie Lamb LPN December 14, 2024 7:41 AM documented in this encounter [facility] 12-08-2024 Telephone encounter Note Spoke with patient and scheduled Cayla Varma [facility] 12-08-2024 Miscellaneous Notes Spoke with patient and scheduled Cayla Varma Patient is taking her exemestane. She will restart Afinitor today. PSS- please contact patient to schedule weekly labs CBC/CMP beginning next Saturday and an OV in 1 month. Svetlana Kong LPN Restart Afinitor 10 mg daily. Verify she is taking exemestane. CBC/CMP weekly x4. OV in about a month. Serena Carrasco DO documented in this encounter [facility] 12-08-2024 Telephone encounter Note Patient is taking her exemestane. She will restart Afinitor today. PSS- please contact patient to schedule weekly labs CBC/CMP beginning next Saturday and an OV in 1 month. Svetlana Kong LPN [facility] 12-08-2024 Note HNO ID: [id number] Author: NOE JACKSON PTA Service: ? Author Type: Supervisor [employer] Type: Progress Notes Filed: 12/08/2024 15:05 Note Text: Episode Visit Count: 16 Therapist That Will Accept/Oversee The Plan Of Care: Milagros Brown PT Start of Care Date: 08/27/24 Onset Date: 05/18/24 Plan of Care Certification Date: 10/07/24 Next Certification Due Date: 12/07/24 Patient Identified by Name and Date of : Yes REHABILITATION AND SPORTS THERAPY PHYSICAL THERAPY TREATMENT NOTE ASSESSMENT: Pat Sorto tolerated the session with expected muscle soreness. She demonstrated improvements in mobility of skin at dorsal aspect of forearm although continues to have significant tightness at ventral aspect of forearm. We discussed wearing her glove at night so she has more consistent wear as she takes it on and off a lot during the day when she does wear it. Educated on performing self scar tissue massage at home to decrease tenderness and sensitivity in this area. The patient will continue to benefit from ongoing skilled physical therapy for reassessment by supervising therapist. PLAN FOR NEXT VISIT: Progress note due at next visit; passive stretching and MFR, STM to L pec and chest to reduce tightness and scar tissue SUBJECTIVE: Has been doing the pump for 30 minutes in the morning and then in the evenings for one hour. No issues after last session. Forearm is very tight especially when trying to put long sleeves on. Has been wearing the old sleeve she has daily for about 4-8 hours. Unsure if there is a difference when she removes the sleeve. Pain: Pain Pain Level: 0 Pain Location: Upper Arm - Left Post Treatment Pain Post Treatment Pain Level: No Change Post Treatment Pain Location: Upper Arm - Left OBJECTIVE MEASURES WITH LEVEL OF FUNCTION: Pt arrives to clinic in no acute distress. TREATMENT: Therapeutic Exercise: 1: OH pulleys flexion, ABD 15x 3 hold 2: UBE L1 x 6 minutes forward for improved postural awareness and ROM/mobility in L UE ; subjective info taken during Skilled Intervention: Patient was educated in proper [...] forearm -- follow up (did not perform inter axillary this date due to recent port and being sore near R pec/chest) Skilled Intervention: Manual skills to improve joint mobility, ROM, and decrease pain. Utilized anatomy knowledge of the clinician, and assessment of patient's response to intervention. Billing Therapeutic Exercise Treatment Minutes: 10 Manual TherapyTreatment Minutes: 29 Skilled Treatment Time Minutes (timed and untimed codes): 39 Total Session Time (minutes): 39 Session Start Time : 1421 Session Stop Time : 1500 Noe Jackson [facility] 12-08-2024 History of Present illness Narrative Episode Visit Count: 16 Therapist That Will Accept/Oversee The Plan Of Care: Milagros Brown PT Start of Care Date: 08/27/24 Onset Date: 05/18/24 Plan of Care Certification Date: 10/07/24 Next Certification Due Date: 12/07/24 Patient Identified by Name and Date of : Yes REHABILITATION AND SPORTS THERAPY PHYSICAL THERAPY TREATMENT NOTE ASSESSMENT: Pat Sorto tolerated the session with expected muscle soreness. She demonstrated improvements in mobility of skin at dorsal aspect of forearm although continues to have significant tightness at ventral aspect of forearm. We discussed wearing her glove at night so she has more consistent wear as she takes it on and off a lot during the day when she does wear it. Educated on performing self scar tissue massage at home to decrease tenderness and sensitivity in this area. The patient will continue to benefit from ongoing skilled physical therapy for reassessment by supervising therapist. PLAN FOR NEXT VISIT: Progress note due at next visit; passive stretching and MFR, STM to L pec and chest to reduce tightness and scar tissue SUBJECTIVE: Has been doing the pump for 30 minutes in the morning and then in the evenings for one hour. No issues after last session. Forearm is very tight especially when trying to put long sleeves on. Has been wearing the old sleeve she has daily for about 4-8 hours. Unsure if there is a difference when she removes the sleeve. Pain: Pain Pain Level: 0 Pain Location: Upper Arm - Left Post Treatment Pain Post Treatment Pain Level: No Change Post Treatment Pain Location: Upper Arm - Left OBJECTIVE MEASURES WITH LEVEL OF FUNCTION: Pt arrives to clinic in no acute distress. TREATMENT: Therapeutic Exercise: 1: OH pulleys flexion, ABD 15x 3 hold 2: UBE L1 x 6 minutes forward for improved postural awareness and ROM/mobility in L UE ; subjective info taken during Skilled Intervention: Patient was educated in proper [...] forearm -- follow up (did not perform inter axillary this date due to recent port and being sore near R pec/chest) Skilled Intervention: Manual skills to improve joint mobility, ROM, and decrease pain. Utilized anatomy knowledge of the clinician, and assessment of patient's response to intervention. Billing Therapeutic Exercise Treatment Minutes: 10 Manual TherapyTreatment Minutes: 29 Skilled Treatment Time Minutes (timed and untimed codes): 39 Total Session Time (minutes): 39 Session Start Time : 1421 Session Stop Time : 1500 Noe Jackson PTA documented in this encounter [facility] 12-08-2024 Telephone encounter Note Restart Afinitor 10 mg daily. Verify she is taking exemestane. CBC/CMP weekly x4. OV in about a month. Serena Carrasco DO [facility] 12-03-2024 Telephone encounter Note Spoke w pt and these have been scheduled. Edie Ott [facility] 12-03-2024 Miscellaneous Notes Spoke w pt and these have been scheduled. Edie Ott Patient aware of all information. PSS- please contact patient to schedule 5 doses of iron sucrose. Repeat CBC/CMP/iron studies about 4 to 6 weeks after finishing iron. Svetlana Kong LPN Can let her know that her iron levels although normal are not adequate enough for her degree of kidney dysfunction. Please schedule for 5 doses of iron sucrose. Hopefully that we will get her hemoglobin level up and give her more energy. Repeat CBC/CMP/iron studies about 4 to 6 weeks after finishing iron. documented in this encounter [facility] 12-03-2024 Telephone encounter Note Patient aware of all information. PSS- please contact patient to schedule 5 doses of iron sucrose. Repeat CBC/CMP/iron studies about 4 to 6 weeks after finishing iron. Svetlana Kong LPN [facility] 12-03-2024 Telephone encounter Note Can let her know that her iron levels although normal are not adequate enough for her degree of kidney dysfunction. Please schedule for 5 doses of iron sucrose. Hopefully that we will get her hemoglobin level up and give her more energy. Repeat CBC/CMP/iron studies about 4 to 6 weeks after finishing iron. [facility] 12-03-2024 Note HNO ID: [id number] Author: NOE JACKSON PTA Service: ? Author Type: Supervisor [employer] Type: Progress Notes Filed: 12/03/2024 10:58 Note Text: Episode Visit Count: 15 Therapist That Will Accept/Oversee The Plan Of Care: Milagros Brown PT Start of Care Date: 08/27/24 Onset Date: 05/18/24 Plan of Care Certification Date: 10/07/24 Next Certification Due Date: 12/07/24 Patient Identified by Name and Date of : Yes REHABILITATION AND SPORTS THERAPY PHYSICAL THERAPY TREATMENT NOTE ASSESSMENT: Pat Sorto tolerated the session with no issues. She demonstrated improvements in her swelling that is typically localized at medial forearm, visually there is an improvement today. Recommended patient trial using pump for 30 mins in mornings in addition to an hour at nighttime. I also recommended she wear her sleeve as much as possible. The patient will continue to benefit from ongoing skilled physical therapy to progress toward set goals. PLAN FOR NEXT VISIT: Continue with MLD. Initiate UBE and continue with pulleys for ROM SUBJECTIVE: She was in the hospital for kidneys shutting down from bacterial infection and medications mixing together (chemo meds, heart meds). Acute tubular necrosis is what they diagnosed her with. Didn't get to go to [facility]. Put a port back in her. Spoke with her kidney doctor and she is okay with proceeding with lymphedema therapy. Thinks her hand is a little better, her arm in general is about the same. Can close her hand a little better. Has been using the pump once a day. Hasn't heard anything from main campus about the lymph procedure. Pain: Pain Pain Level: 0 Pain Location: Upper Arm - Left, Forearm - Left Post Treatment Pain Post Treatment Pain Level: No Change OBJECTIVE MEASURES WITH LEVEL OF FUNCTION: Pt arrives to clinic in no acute distress. TREATMENT: Manual Therapy: 1: L UE MLD: Supraclavicular LN -- Superficial abdominals -- R axillary L-- inter-axillary anastomoses -- L inguinal LN -- axillo-inguinal anastomoses -- L shoulder/rotators -- L upper arm medial to lateral drainage emphasis -- elbow -- anterior/posterior forearm -- follow up (did not perform inter axillary this date due to recent port and being sore near R pec/chest) Skilled Intervention: Manual skills to improve joint mobility, ROM, and decrease pain. Utilized anatomy knowledge of the clinician, and assessment of patient's response to intervention. Billing Manual TherapyTreatment Minutes: 39 Skilled Treatment Time Minutes (timed and untimed codes): 39 Total Session Time (minutes): 39 Session Start Time : 50 Session Stop Time : 102 Noe Jackson [facility] 12-03-2024 History of Present illness Narrative Episode Visit Count: 15 Therapist That Will Accept/Oversee The Plan Of Care: Milagros Brown PT Start of Care Date: 08/27/24 Onset Date: 05/18/24 Plan of Care Certification Date: 10/07/24 Next Certification Due Date: 12/07/24 Patient Identified by Name and Date of : Yes REHABILITATION AND SPORTS THERAPY PHYSICAL THERAPY TREATMENT NOTE ASSESSMENT: Pat Sorto tolerated the session with no issues. She demonstrated improvements in her swelling that is typically localized at medial forearm, visually there is an improvement today. Recommended patient trial using pump for 30 mins in mornings in addition to an hour at nighttime. I also recommended she wear her sleeve as much as possible. The patient will continue to benefit from ongoing skilled physical therapy to progress toward set goals. PLAN FOR NEXT VISIT: Continue with MLD. Initiate UBE and continue with pulleys for ROM SUBJECTIVE: She was in the hospital for kidneys shutting down from bacterial infection and medications mixing together (chemo meds, heart meds). Acute tubular necrosis is what they diagnosed her with. Didn't get to go to [facility]. Put a port back in her. Spoke with her kidney doctor and she is okay with proceeding with lymphedema therapy. Thinks her hand is a little better, her arm in general is about the same. Can close her hand a little better. Has been using the pump once a day. Hasn't heard anything from main campus about the lymph procedure. Pain: Pain Pain Level: 0 Pain Location: Upper Arm - Left, Forearm - Left Post Treatment Pain Post Treatment Pain Level: No Change OBJECTIVE MEASURES WITH LEVEL OF FUNCTION: Pt arrives to clinic in no acute distress. TREATMENT: Manual Therapy: 1: L UE MLD: Supraclavicular LN -- Superficial abdominals -- R axillary L-- inter-axillary anastomoses -- L inguinal LN -- axillo-inguinal anastomoses -- L shoulder/rotators -- L upper arm medial to lateral drainage emphasis -- elbow -- anterior/posterior forearm -- follow up (did not perform inter axillary this date due to recent port and being sore near R pec/chest) Skilled Intervention: Manual skills to improve joint mobility, ROM, and decrease pain. Utilized anatomy knowledge of the clinician, and assessment of patient's response to intervention. Billing Manual TherapyTreatment Minutes: 39 Skilled Treatment Time Minutes (timed and untimed codes): 39 Total Session Time (minutes): 39 Session Start Time : 949 Session Stop Time : 1028 Noe Jackson PTA documented in this encounter [facility] 11-30-2024 Telephone encounter Note Patient requesting EMLA cream. Please send to [facility]. Svetlana Kong LPN [facility] 11-30-2024 Miscellaneous Notes Patient requesting EMLA cream. Please send to [facility]. Svetlana Kong LPN documented in this encounter [facility] 11-25-2024 Telephone encounter Note Added to patient to Port schedule Cayla Varma [facility] 11-25-2024 Miscellaneous Notes Added to patient to Port schedule Cayla Varma Please see my chart message. Pt. has a port now and will need labs on Saturday. Thank you. Luis Alberto Raman APRN.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 documented in this encounter [facility] 11-25-2024 Telephone encounter Note Please see my chart message. Pt. has a port now and will need labs on Saturday. Thank you. Luis Alberto Raman APRN.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 [facility] 11-24-2024 Telephone encounter Note Spoke w pt and she be walking in for her labs in [place] on Saturday am. Edie Ott [facility] 11-24-2024 Miscellaneous Notes Spoke w pt and she be walking in for her labs in [place] on Saturday am. Edie Ott 11/20 AVS Hydrate and IV potassium today.-done - Recheck CBC/CMP next Sat. - Please schedule port placement at [facility].-11/23 Patient called back and scheduled Port placement for Saturday. Patient asked if she could have a note to give her insurance company. Her trip to [facility] had to be cancelled due to medical condition. Cayla Varma LVM letting patient know there is an opening at [facility] Saturday at 9. If she wants it please message here and secure chat that's open. Cayla Varma - Hydrate and IV potassium today.-done - Recheck CBC/CMP next Sat. - Please schedule port placement at [facility].-secure chat started - Follow as scheduled otherwise. - Pt. aware to call office with any questions/concerns. documented in this encounter [facility] 11-24-2024 Telephone encounter Note 11/20 AVS Hydrate and IV potassium today.-done - Recheck CBC/CMP next Sat. - Please schedule port placement at [facility].-11/23 [facility] Work Phone: 11-20-2024 Telephone encounter Note Patient called back and scheduled Port placement for Saturday. Patient asked if she could have a note to give her insurance company. Her trip to [facility] had to be cancelled due to medical condition. Cayla Varma [facility] 11-20-2024 Telephone encounter Note LVM letting patient know there is an opening at [facility] Saturday at 9. If she wants it please message here and secure chat that's open. Cayla Varma [facility] 11-20-2024 Telephone encounter Note - Hydrate and IV potassium today.-done - Recheck CBC/CMP next Sat. - Please schedule port placement at [facility].-secure chat started - Follow as scheduled otherwise. - Pt. aware to call office with any questions/concerns. [facility] 11-20-2024 Telephone encounter Note Information faxed as directed. Kasie Lamb LPN [facility] 11-20-2024 Miscellaneous Notes Information faxed as directed. Kasie Lamb LPN Please send CMP to Dr. Esdras Carter's office today per Dr. Carrasco. Thank you. Luis Alberto Raman APRN.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 documented in this encounter [facility] 11-20-2024 Telephone encounter Note Please send CMP to Dr. Esdras Carter's office today per Dr. Carrasco. Thank you. Luis Alberto Raman APRN.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 [facility] 11-20-2024 History of Present illness Narrative Chief Complaint Patient presents with: Follow Up Malignant neoplasm of left breast in female, estrogen recept HPI: Pat Sorto is a 64 year old female who presents here today for follow up hospital discharge. Per Dr. Carrasco's previous note: H/o hypertension and primary biliary cirrhosis. She is seen by her accounts receivable accountant approximately once a year and she has had stable findings. Most recent liver chemistries performed at [facility] on 01/10/2017 showed a total bilirubin of [...] Evidently she was on a trip to [place] about 2 1/2 years ago when she [...] greatest length). ER (clone 6F11) >95%, strong NY (clone 16/1E2) >95%, strong Her-2Neu (clone CB11) [...] Previously performed (HER2) ERBB2 Status: Previously performed Scrapper Tumor Block: Specify: B3 Residual tumor burden: Tumor bed dimension #1: 8 mm Tumor bed dimension #2: 5 mm Overall tumor cellularity 50% Percentage in situ 3% Comment: Please see [id number] for the results of estrogen and progesterone receptors and HER2 studies. 3[facility]. Metastatic disease. Had [...] was performed on block A1 at the [facility] and compared to appropriate reactive controls. [...] everolimus second week April 2023. Was at [facility]. Had PET scan on 05/02. Demonstrated [...] consistent with invasive ductal carcinoma, grade 3. Dr. Carrasco's phone note 11/18/24: Admitted for dehydration to [facility]. LAXMI with serum Cr ~3 mg/dL. Discharge today. Will hold Afinitor for now (trip to [place] coming up). Please add on to see either Luis Alberto or [facility] on Saturday. CBC/CMP. She was seen by nephrology inpatient. Hydrochlorothiazide and losartan were held. She was continued on metoprolol and amlodipine. If significantly hypertensive on Saturday then can increase amlodipine or metoprolol depending on heart rate. Pt. cancelled her trip to [place]. Afinitor remains on hold. She is feeling better today. Appetite:It's coming back. Energy level:It's better. Denies fevers. Mouth:denies sores Resp:denies cough or sob Cardiac:denies chest pain/palpitations GI:denies abd pain, n/v, moving bowels regularly :denies dysuria/hematuria Extrem:denies new pain Endo:occ. hot flashes -sporatic Skin:denies rashes Heme:denies bleeding The ROS is otherwise negative. Past medical history, appointments, medications, allergies reviewed. No changes. EXAM: BP 138/74 Pulse 86 Temp 36.4 C (97.6 F) (Temporal) Resp 14 Ht 167.6 cm (5' 6) Wt 81.1 kg (178 lb 12.7 oz) SpO2 100% BMI 28.86 kg/m APPEARANCE Well appearing, alert, in no acute distress, well-hydrated, well nourished. HEART RRR with normal S1 and S2, no murmurs EXTREMITIES No edema NEURO Awake, alert and oriented x 3, Normal gait, and No involuntary motions. SKIN Skin color, texture, turgor normal, no suspicious rashes or lesions LABS: Latest Ref Rng 10/27/2024 11/09/2024 11/20/2024 WBC 3.70 - 11.00 k/uL 5.61 8.23 6.40 RBC 3.90 - 5.20 m/uL 3.22 (L) 3.54 (L) 3.24 (L) Hemoglobin 11.5 - 15.5 g/dL 9.1 (L) 10.0 (L) 9.0 (L) Hematocrit 36.0 - 46.0 % 27.3 (L) 30.0 (L) 26.8 (L) MCV 80.0 - 100.0 fL 84.8 84.7 82.7 MCH 26.0 - 34.0 pg 28.3 28.2 27.8 MCHC 30.5 - 36.0 g/dL 33.3 33.3 33.6 RDW-CV 11.5 - 15.0 % 13.4 13.0 12.8 Platelet Count 150 - 400 k/uL 204 222 198 MPV 9.0 - 12.7 fL 9.8 10.0 9.7 Neut% % 62.8 65.1 72.5 Abs Neut (ANC) 1.45 - 7.50 k/uL 3.52 5.37 4.64 Lymph% % 26.4 22.4 14.5 Abs Lymph 1.00 - 4.00 k/uL 1.48 1.84 0.93 (L) Pettis% % 7.8 9.5 11.6 Abs Pettis <0.87 k/uL 0.44 0.78 0.74 Eosin% % 1.6 1.6 0.6 Abs Eosin <0.46 k/uL 0.09 0.13 0.04 Baso% % 0.9 0.9 0.3 Abs Baso <0.11 k/uL 0.05 0.07 <0.03 Immature Gran % % 0.5 0.5 0.5 IMMATURE GRANS (ABS) <0.10 k/uL 0.03 0.04 0.03 NRBC /100 WBC 0.0 0.0 0.0 Absolute nRBC <0.01 k/uL <0.01 <0.01 <0.01 DTYPE Auto Auto Auto Latest Ref Rng 10/27/2024 11/09/2024 11/20/2024 Protein, Total 6.3 - 8.0 g/dL 7.1 7.2 7.2 Albumin 3.9 - 4.9 g/dL 3.9 3.8 (L) 3.5 (L) Calcium 8.5 - 10.2 mg/dL 9.2 9.5 8.9 Bilirubin, Total 0.2 - 1.3 mg/dL 0.4 0.2 0.3 Alkaline Phosphatase 34 - 123 U/L 57 62 75 AST 13 - 35 U/L 23 23 56 (H) ALT 7 - 38 U/L 16 15 43 (H) Glucose 74 - 99 mg/dL 204 (H) 144 (H) 136 (H) BUN 7 - 21 mg/dL 49 (H) 40 (H) 30 (H) Creatinine 0.58 - 0.96 mg/dL 1.86 (H) 1.89 (H) 2.77 (H) Sodium 136 - 144 mmol/L 137 139 138 Potassium 3.7 - 5.1 mmol/L 3.8 3.6 (L) 3.0 (L) Chloride 98 - 107 mmol/L 100 99 102 CO2 22 - 30 mmol/L 23 25 21 (L) Anion Gap 8 - 15 mmol/L 14 15 15 eGFR >=60 mL/min/1.73m 30 (L) 29 (L) 18 (L) ASSESSMENT/PLAN: 1. Malignant neoplasm of left breast in female, estrogen receptor positive, unspecified site of breast (HCC) - ICD9: 174.9, V86.0, ICD10: C50.912, Z17.0 (primary diagnosis) 2. 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 lymph node (HCC) - ICD9: 196.1, ICD10: C77.1 4. Chemotherapy-induced cardiomyopathy (HCC) - ICD9: 425.9, E933.1, ICD10: I42.7, T45.1X5A 5. Lymphedema of left arm - ICD9: 457.1, ICD10: I89.[address] Carrasco's previous note: Assessment: -cT3 cN3 (high axillary LNs and possible internal mammary merlyn involvement) MX stage IIIC ER/NY positive, HER2 non overexpressed invasive ductal carcinoma of the right breast. -KPS is 100%. -PET scan indicated disease left chest wall and mediastinal lymph nodes. -MRI brain negative. -Biopsy-proven disease recurrence left chest wall inferior and posterior to implant. -ER positive (99% strong staining intensity), NY positive (2% with strong staining intensity), HER2 2+; nonamplified by FISH testing. 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 -MRI Breast 03/28/2023 demonstrated PD and therapy was rotated to Faslodex and Afinitor. Oncology at [facility] recommended exemestane with Afinitor. 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 Plan: -Continue follow up with cardiology. (I89.0) Lymphedema of left arm Assessment: -Recurrent. -Seeing PT in [place]. Is to get home lymphatic pump. Plan: - Follow-up with physical therapy. HTN -Rx HCTZ 12.5 mg tablets. - Feeling better since discharge. - Reviewed CBC/CMP with pt. and Dr. Carrasco. - Continue to hold all medications that are on hold currently-afinitor, hctz, losartan, metroprolol. - Rx Kdur - Faxed CMP to Dr. Carter. - Hydrate and IV potassium today. - Recheck CBC/CMP next Sat. - Please schedule port placement at [facility]. - Follow as scheduled otherwise. - Pt. aware to call office with any questions/concerns. The patient indicates understanding of these issues and agrees with the plan. Discussed case with Dr. Carrasco who agrees with treatment plan. All documentation from previous visit of 10/30/24-Dr. Carrasco was copied and pasted, documentation has been reviewed and edited as necessary for today's visit. Luis Alberto Raman APRN.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 documented in this encounter [facility] 11-18-2024 Note [facility] Medical Records Department [address] [place] [id number] Discharge Summary 11/18/24 1401 MR#: [id number] Acct: [id number] Name: PAT SORTO Rep #: [id number] : 1960 64 From: William Minaya MD PCP: Dr. Jacinta Rivas MD Status:DIS IN Location: UT3 NA363-7 Providers Date of Admission: 11/15/24 Primary Care Physician: Dr. Jacinta Rivas MD Consultations 11/17/24 09:01 Consult: Nephrology Routine Consulting Provider: Annabel Carter Reason for Consult: LAXMI/ATN EMERGENT Consult: No MD Notified: Yes Date Notified: 11/17/24 Time Notified: 09:31 Method of Notification: Text Reason For Visit: UTI, LAXMI Diagnosis Discharge Diagnosis (1) Acute kidney injury: Status: Acute Code(s): N17.9 - Acute kidney failure, unspecified (2) Hypokalemia: Status: Acute Code(s): E87.6 - Hypokalemia (3) Urinary tract infection: Status: Acute Code(s): N39.0 - Urinary tract infection, site not specified (4) HTN (hypertension): Status: Chronic Code(s): I10 - Essential (primary) hypertension Qualifiers: Hypertension type: primary hypertension Qualified Code(s): I10 - Essential (primary) hypertension (5) History of chemotherapy: Status: Acute Code(s): Z92.21 - Personal history of antineoplastic chemotherapy (6) Type 2 diabetes mellitus with hyperglycemia: Status: Acute Code(s): E11.65 - Type 2 diabetes mellitus with hyperglycemia (7) Breast cancer metastasized to axillary lymph node: Status: Acute Code(s): C50.919 - Malignant neoplasm of unspecified site of unspecified female breast; C77.3 - Secondary and unspecified malignant neoplasm of axilla and upper limb lymph nodes Qualifiers: Laterality: left Qualified Code(s): C50.912 - Malignant neoplasm of unspecified site of left female breast; C77.3 - Secondary and unspecified malignant neoplasm of axilla and upper limb lymph nodes (8) Iron deficiency anemia: Status: Acute Code(s): D50.9 - Iron deficiency anemia, unspecified (9) Hypocalcemia: Status: Acute Code(s): E83.51 - Hypocalcemia Medications at Discharge Home Medications ascorbic acid (vitamin C) 100 mg tablet 500 mg PO QDAY 03/29/17 vitamin E (dl, acetate) 45 mg (100 unit) capsule 400 unit PO QDAY 03/29/17 aspirin 81 mg chewable tablet 81 mg PO ONCE 04/04/17 cyanocobalamin (vitamin B-12) 1,000 mcg capsule 1,000 mcg PO DAILY 04/23/17 ergocalciferol (vitamin D2) 1,250 mcg (50,000 unit) capsule (Vitamin D2) 50,000 unit PO QWEEK 09/03/23 everolimus (antineoplastic) 10 mg tablet 10 mg PO DAILY 09/03/23 exemestane 25 mg tablet 25 mg PO DAILY 09/03/23 lorazepam 0.5 mg tablet 0.5 mg PO TID PRN anxiety 09/03/23 pantoprazole 40 mg tablet,delayed release 40 mg PO DAILY 09/03/23 calcium carbonate 1,000 mg PO DAILY 10/09/23 amlodipine 5 mg tablet 5 mg PO QDAY #90 tabs 07/02/24 insulin glargine 100 unit/mL (3 mL) subcutaneous pen (Lantus Solostar U-100 Insulin) 20 unit subcut QAM 07/02/24 ursodiol 500 mg tablet (LEENA Forte) 1,250 mg PO QDAY 07/02/24 tirzepatide 2.5 mg/0.5 mL subcutaneous pen injector (Mounjaro) 2.5 mg subcut QWEEK 11/15/24 trazodone 50 mg tablet 50 mg PO QHS 11/15/24 cefdinir 300 mg capsule 300 mg PO DAILY 10 days #10 caps 11/18/24 Hospital Course Operations None Procedures None Summary of Care Provided Minutes Spent on Discharge: 36 Hospital Course: Per HPI: The patient is a 64 y/o F w/ PMHx: CKD stage II per GFR trending, Chronic anemia, Overweight, GERD, Diabetes mellitus type II, HTN, HLD, Hx L breast CA unclear specific type s/p L total breast mastectomy considered in remission, Primary biliary cirrhosis who presents to the [facility] ED on 11/15/2024 with significant fatigue, malaise, increasing weakness as well as loose stools over the last 3 days with decreased oral intake with subjective fevers and chills and diaphoresis with decreased urine output prompting eventual ED evaluation. She does report that she had urinary intact infection approximate 1 month prior specifically E. coli and at that time was treated with Augmentin as far as recent antibiotic therapies but none since. Workup in the ED included T97.8, heart rate 92, BP 103/67, respiratory 18, 99% on room air, notable orthostatic vital signs although slightly atypical with laying 95/59, sitting 121/61, standing 93/52 with no heart rate alteration, most recent repeat vitals of heart rate 99, BP 101/55, respiratory rate 16, 97% on room air, CBC with WC 12.9, hemoglobin 9.2, MCV 82, platelet 135 with left shift, BMP with sodium 130, potassium 2.8, chloride 93, BUN/canaille 45/3.18, GFR 16, glucose 123, urinalysis noted to be cloudy, protein 100, occult blood 250, nitrate negative, leukocyte esterase 500 with urine WBCs greater than 100 with 2+ bacteria with urine culture pending per ED, rapid SARS COVID/)/RSV PCR negative. In t (more content not included)... [facility] 11-18-20[address] Consult [address] [facility] 11-18-2024 Progress note [facility] 11-18-2024 Discharge summary [facility] 11-18-2024 Telephone encounter Note Patient scheduled labs Scheduled office visit with patient [facility] Work Phone: 11-18-2024 Miscellaneous Notes Patient scheduled labs Scheduled office visit with patient Spoke to patient. Aware to continue to hold her Afinitor and that she will need labs and OV Saturday. Please call pt and assist with scheduling. Анна Peck LPN Admitted for dehydration to [facility]. LAXMI with serum Cr ~3 mg/dL. Discharge today. Will hold Afinitor for now (trip to [place] coming up). Please add on to see either Luis Alberto or Michell on Saturday. CBC/CMP. She was seen by nephrology inpatient. Hydrochlorothiazide and losartan were held. She was continued on metoprolol and amlodipine. If significantly hypertensive on Saturday then can increase amlodipine or metoprolol depending on heart rate. Serena Carrasco DO documented in this encounter [facility] 11-18-2024 Telephone encounter Note Spoke to patient. Aware to continue to hold her Afinitor and that she will need labs and OV Saturday. Please call pt and assist with scheduling. Анна Peck LPN [facility] 11-18-2024 Telephone encounter Note Admitted for dehydration to [facility]. LAXMI with serum Cr ~3 mg/dL. Discharge today. Will hold Afinitor for now (trip to [facility] coming up). Please add on to see either Luis Alberto or Michell on Saturday. CBC/CMP. She was seen by nephrology inpatient. Hydrochlorothiazide and losartan were held. She was continued on metoprolol and amlodipine. If significantly hypertensive on Saturday then can increase amlodipine or metoprolol depending on heart rate. Serena Carrasco DO [facility] 11-17-2024 Consult note Note Date/Time November 18, 2024 12:26pm [facility] Medical Records Department [address] [place] [id number] Consultation - Nephrology 11/17/24 1608 MR#: [id number] Acct: [id number] Name: PAT SORTO Rep #:[id number] : 1960 64 From: Annabel Slaughter PCP: Dr. Jacinta Rivas MD Status:AD M IN Location: [facility] [id number] Assessment & Plan Assessment/Plan (1) Acute kidney injury: PLAN: Creatinine 0.8 in Dec 2023, progressed to 1.09 on 08/04/24, 1.47 eGFR 39cc/min on 09/01/24 to 1.96 on 09/22/24. Creatinine 1.86 eGFR 30cc/min on 10/27/24. She has been on ARB therapy with HCTZ. Doses decreased in office on initial visit 10/28/24. Creatinine 3.1 eGFR 16cc/min on admit. BP low on admit improved with iv hydration. She may have ATN from prolonged hypotension at home prior to admit vs AIN from infection vs multiple antibx therapy for UTI. She received zometa on 11/10 where biphosphonates can cause LAXMI. Aromasin and Everolimus can also increased creatinine level. Discussed with pt possible kidney biopsy if renal fxn does not improve to evaluate for AIN. Hx proteinuria that can be caused by chemotherapy agents, hypokalemia. 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 Check renal US, VINCENZO, ANCA for microscopic hematuria. DW hospitalist, nursing staff, pt and pt spouse. (2) Hypokalemia: PLAN: likely due to HCTZ, poor intake, diarrhea, chemotherapy. Potassium 2.9 phos 2.2 replaced with Kphos (3) Urinary tract infection: PLAN: on ceftriaxone (4) HTN (hypertension): QUALIFIERS: Hypertension type: primary hypertension Qualified Code(s): I10 - Essential (primary) hypertension PLAN: hold BP meds (5) History of chemotherapy: PLAN: both aromasin and everolimus can increase serum creatinine. Consider reducing dose due to rising creatinine. Defer to oncology (6) Type 2 diabetes mellitus with hyperglycemia: PLAN: chemotherapy induced on insulin (7) Breast cancer metastasized to axillary lymph node: QUALIFIERS: Laterality: left Qualified Code(s): C50.912 - Malignant neoplasm of unspecified site of left female breast; C77.3 - Secondary and unspecified malignant neoplasm of axilla and upper limb lymph nodes (8) Iron deficiency anemia: PLAN: would benefit from iv iron therapy hgb 8.3g iron level 12 (9) Hypocalcemia: PLAN: s/p zometa dose on 11/09/24 HPI Consult Data Date of Consult: 11/18/24 HPI Narrative Reason for Consultation: LAXMI on CKD stage 3B HPI Narrative: PAT SORTO, is a 64 F who presents with LAXMI, hypotension improved with iv fluids. Creatinine 1.89 eGFR 30cc/min on 11/08/24. [place] weak, sleepy, blurred vision, poor appetite, nausea, muscle cramps on Saturday11/13/24 after traveling [facility] last Saturday, gave 4 golf lessons in the heat Saturday. She had some chills, diarrhea watery then with mucous since last dose of Mounjaro 1 week ago.Urine output decreased over weekend. She was treated with multiple antibx for Ecoli UTI past month. She was on Losartan and HCTZ along with amlodipine and metoprolol for hypertension. BP low on admit received iv fluids. Denied nausea,vomiting currently, no tremor. She is on Aromasin and Everolimus for breast cancer. She received zometa on 11/09/24 as outpt. Recent PET scan a month ago was stable per pt. She had lymphedema study on 11/10/24 with indocyanine green dye forchronic lymphedema on LUE. Denies chest pain, shortness of breath. She has drug induced diabetes on insulin and mounjaro. [facility] Medical History History of removal of left breast implant (05/18/24) Acute kidney injury Chemotherapy induced cardiomyopathy Malignant neoplasm of lower-outer quadrant of left breast of female, estrogen receptor positive Type 2 diabetes mellitus with hyperglycemia Primary biliary cirrhosis History of chemotherapy Breast cancer Abnormal mammogram of left breast HTN (hypertension) Home Medications ?Medication ?Instructions ?Recorded ?Last Taken ?Type ascorbic acid (vitamin C) 100 mg 500 mg PO QDAY 05/20/24 History tablet vitamin E (dl, acetate) 45 mg (100 400 unit PO QDAY 05/20/24 History unit) capsule aspirin 81 mg chewable tablet 81 mg PO ONCE 04/04/17 0 05/20/24 History cyanocobalamin (vitamin B-12) 1,000 mcg PO DAILY 04/2305/20/24 History 1,000 mcg capsule ergocalciferol (vitamin D2) 1,250 50,000 unit PO QWEEK 09/03/23 Unknown History mcg (50,000 unit) capsule (Vitamin D2) everolimus (antineoplastic) 10 mg 10 mg PO DAILY 09/0205/20/24 History tablet exemestane 25 mg tablet 25 mg PO DAILY 09/03/2305/09 History lorazepam 0.5 mg tablet 0.5 mg PO TID PRN anxiety Unknown History pantoprazole 40 mg tablet,delayed 40 mg PO DAILY 09/0205/20/24 History release calcium carbonate 1,000 mg PO DAILY 10/09/23 U nknown History amlodipine 5 mg tablet 5 mg PO QDAY #90 tabs Unknown Rx insulin glargine 100 unit/mL (3 20 unit subcut QAM Unknown History mL) subcutaneous pen (Lantus Solostar U-100 Insulin) metoprolol succinate 25 mg 25 mg PO QDAY 07/02/24 Unkn own History tablet,extended release 24 hr ursodiol 500 mg tablet (LEENA Forte) 1,250 mg PO QDAY 0 07/02/24 Unknown History hydrochlorothiazide 12.5 mg tablet 12.5 mg PO QDAY Unknown History losartan 25 mg tablet 50 mg PO DAILY 11/15/24 Unkn own History tirzepatide 2.5 mg/0.5 mL 2.5 mg subcut QWEEK 11/15/24 Unknown History subcutaneous pen injector (Mounjaro) trazodone 50 mg tablet 50 mg PO QHS 11/15/24 Unknow n History Allergy/AdvReac Type Severity Reaction Status Date / Time No Known Allergies Allergy Verified 11/02/24 11:11 Family History Mother Diabetes Heart disease Hypertension CVA (cerebral vascular accident) Father Diabetes Hypertension Surgical History Hx of total mastectomy of left breast S/P breast biopsy S/P total knee replacement History of section Social History household members: spouse Smoking Status: Never smoker alcohol intake: current alcohol intake frequency: 0-2 drinks per day substance use type: does not use ROS Constitutional Constitutional: Reports chills and weakness; Denies fever(s) Eyes Eyes: Reports blurry vision ENT HEENT: Reports dry mouth Cardiovascular Cardiovascular: Denies chest pain, diaphoresis, dyspnea on exertion, leg edema or syncope Respiratory/Chest Respiratory/Chest: Denies dry cough, dyspnea on exertion, hemoptysis or shortness of breath at rest Gastrointestinal Gastrointestinal: Reports anorexia, diarrhea and nausea; Denies abdominal pain, hematemesis, hematochezia, melena or vomiting Genitourinary Genitourinary: Reports change in urinary stream and oliguria; Denies dysuria or hematuria Musculoskeletal Musculoskeletal: Reports muscle cramps Integumentary Integumentary: Denies rash Neurologic Neurologic: Reports weakness; Denies abnormal gait, focal weakness or tremor(s) Endocrine Endocrinology: Reports fatigue Hematologic/Lymphatic Hematologic/Lymphatic: Reports anemia Physical Exam Const alert and oriented x3 General Appearance: well developed Eyes EOMs intact bilaterally Resp clear to auscultation bilaterally Cardio regular rate, no murmurs and no rub GI non-tender and non-distended Auscultation: normoactive bowel sounds Palpation: soft Extremity no clubbing, cyanosis or edema Extremity Narrative: SUKH lymphedema Lab / Micro Data 11/18/24 05:18 11/18/24 05:18 Labs: Laboratory Results - last 24 hr 11/16/24 17:12: POC Glucose 96 11/16/24 22:41: POC Glucose 108 H 11/17/24 04:43: WBC 5.5, RBC 2.96 L, Hgb 8.3 L, Hct 24.2 L, MCV 81.8, MCH 28.0, MCHC 34.3, RDW Std Deviation 38.8, RDW Coeff of Rosie 12.8, Plt Count 119 L, MPV 11.0, Immature Gran % (Auto) 0.700, Neut % (Auto) 73.7 H, Lymph % (Auto) 14.6 L,Pettis % (Auto) 10.6 H, Eos % (Auto) 0.2, Baso % (Auto) 0.2, Absolute Neuts (auto)4.1, Absolute Lymphs (auto) 0.81 L, Nucleated RBC % 0, Sodium 133, Potassium 2.9L, Chloride 100, Carbon Dioxide 18.0 L, Anion Gap 15, BUN 39 H, Creatinine 3.17 H, Estim Creat Clear Calc 19.05 L, Est GFR (MDRD) Non-Af 16 L, BUN/Creatinine Ratio 12.3, Glucose 78, Calcium 7.3 L, Phosphorus 2.2 L, Magnesium 1.7, Iron 12 L, TIBC 222 L, Iron Saturation 5.4 L, Unsaturated IBC 210 L, Ferritin 520 H 11/17/24 06:49: POC Glucose 78 11/17/24 10:15: Ur Random Sodium 77, Urine Creatinine 85.60, Urine Potassium 25.0, Urine Chloride 82 11/17/24 11:17: POC Glucose 156 H Micro: Microbiology 11/17/24 10:00 Stool Stool Occult Blood (ISRA[place]) - Final 11/15/24 19:12 Urine, Clean Catch Urine Culture - Final Escherichia coli Gram negative jessie Imaging Radiology Impression Renal Ultrasound 11/17/24 14:48 IMPRESSION: 1. Nonobstructing right midpole renal calculus measuring 1 cm. 2. No hydronephrosis is visualized in bilateral kidneys. Reading Location: [id number] 11/18/24 1226 <Electronically signed by Annabel Carter DO> Cosigner Signature (if applicable): CC: Dr. Jacinta Rivas MD~ Signed [facility] Work Phone: 1(406) 995-116408-12-2025 Radiology Diagnostic study note [facility] Imaging Services [address] [place] [address] Kidney and Bladder MR#: [id number] Acct: [id number] Name: PAT SORTO Rep #: [id number] : 1960 F 64 From: Lorrie Painting MD PCP: Dr. Jacinta Rivas MD Status: AD M IN Study:Kidney and Bladder Date of Exam: 0 11/17/24 Exam# [id number] Ordering Dr: Sadaf Carter DO PROCEDURE: KIDNEY AND BLADDER 11/17/2024 REASON FOR EXAM: LAXMI TECHNIQUE: KIDNEY AND BLADDER COMPARISON: Ultrasound abdomen 03/24/2024. FINDINGS: Kidneys: Normal renal sizes, parenchymal thicknesses, and echotextures. Bilateral ureteral jets arenot visualized. [place]: No hydronephrosis visualized. Cysts or Masses: No cysts or large solid renal masses. Other: There is hyperechoic structure within right midpole with posterior acoustic shadowing measuring 1.1 x 0.3 x 0.7 cm likely representing nonobstructing renal calculus RIGHT Kidney Size: 10.8 x 4.5 x 4.8 Volume: 122.6 mL Parenchymal Thickness: 19 mm (>14mm is normal) Cortical Thickness (if discernible): 10 (>6mm is normal) LEFT Kidney Size: 10.9 x 5.2 x 4.7 Volume: 140.9 mL Parenchymal Thickness: 16 mm (>14mm is normal) Cortical Thickness (if discernible): 10 (>6mm is normal) Bladder: Bladder is distended with anechoic urine with volume of 19.7 mL and wall thickness of 0.2 cm without any sonographic evidence of any mass. US/Kidney and Bladder IMPRESSION: 1. Nonobstructing right midpole renal calculus measuring 1 cm. 2. No hydronephrosis is visualized in bilateral kidneys. Reading Location: [id number] CC: Dr. Annabel Carter DO; Dr. 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08-12-2025 Progress note Author William Minaya [facility] Note Date/Time November 17, 2024 9: 04am [facility] Medical Records Department [address] [place] [address] Progress Note - Hospitalist 11/17/24 0859 MR#: [id number] Acct: [id number] Name: PAT SORTO Rep #:[id number] : 1960 64 From: William hooker MD PCP: Dr. Jacinta Rivas MD Status:AD M IN Location: [facility] GB004-4 Subjective Subjective Doing well today, no issues overnight. Hemoglobin did drop again unclear as to the etiology Objective Data Objective Data Vital Signs: Vital Signs Temp Pulse Resp BP Pulse Ox O2 Del Method 98.1 F 88 16 134/84 H 100 Room Air 11/17/24 08:56 11/17/24 08:56 11/17/24 08:56 11/17/24 08:56 11/17/24 08:56 11/17/24 08:56 Oxygen Delivery Method Room Air Weight: 179 lb 14.355 oz Body Mass Index (BMI) 28.9 Intake & Output: Intake and Output for Last 24 Hours 11/16/24 11/17/24 11/18/24 03:59 03:59 03:59 Intake Total 2100 / 2100 1050 / 1050 Output Total 100 / 100 950 / 950 Balance 1999 / 1999 100 / 100 Lab / Micro Data 11/17/24 04:43 11/17/24 04:43 Labs: Laboratory Results - last 24 hr 11/16/24 11:23: POC Glucose 109 H 11/16/24 17:12: POC Glucose 96 11/16/24 22:41: POC Glucose 108 H 11/17/24 04:43: WBC 5.5, RBC 2.96 L, Hgb 8.3 L, Hct 24.2 L, MCV 81.8, MCH 28.0, MCHC 34.3, RDW Std Deviation 38.8, RDW Coeff of Rosie 12.8, Plt Count 119 L, MPV 11.0, Immature Gran % (Auto) 0.700, Neut % (Auto) 73.7 H, Lymph % (Auto) 14.6 L,Pettis % (Auto) 10.6 H, Eos % (Auto) 0.2, Baso % (Auto) 0.2, Absolute Neuts (auto)4.1, Absolute Lymphs (auto) 0.81 L, Nucleated RBC % 0, Sodium 133, Potassium 2.9L, Chloride 100, Carbon Dioxide 18.0 L, Anion Gap 15, BUN 39 H, Creatinine 3.17 H, Estim Creat Clear Calc 19.05 L, Est GFR (MDRD) Non-Af 16 L, BUN/Creatinine Ratio 12.3, Glucose 78, Calcium 7.3 L, Phosphorus 2.2 L, Magnesium 1.7, Iron 12 L, TIBC 222 L, Iron Saturation 5.4 L, Unsaturated IBC 210 L, Ferritin 520 H 11/17/24 06:49: POC Glucose 78 Micro: Microbiology 11/15/24 19:12 Urine, Clean Catch Urine Culture - Final Escherichia coli Gram negative jessie 11/15/24 19:12 Mucosa - Nose SARS-CoV-2, Influenza & RSV (PCR) - Final Physical Exam Narrative General: Alert, Oriented x3, Cooperative, No apparent distress HEENT: Atraumatic, PERRLA, EOMI, Normocephalic Oral: Moist Mucosa Neck: Supple, No JVD Lungs: Clear to auscultation, Normal air movement, No rhonchi, No wheeze, No rales Cardiovascular: Regular rate, Regular Rhythm, Normal S1, Normal S2, No murmurs Abdomen: Soft, Non Tender, Non-Distended, No Hepato-splenomegaly Extremities: No edema Skin: No rashes, No breakdown Musculoskeletal: No Tenderness to Palpation of Joints or Extremities Neurological: No focal neurological deficits, Motor Exam 5/5 strength throughout, Sensory exam intact to light touch and pain Psych/Mental Status: Normal Affect, Appropriate Assessment & Plan Assessment/Plan (1) Urinary tract infection: PLAN: Plan 1. Acute UTI due to E. coli with LAXMI ? Urine urine cultures with an intermediately resistant E. coli, blood cultures are pending ? Continue with Rocephin ? Continue with IV fluids ? Creatinine is 3.1 today, will obtain urine studies and consult nephrology ?She has not had a bowel movement since admission therefore we will discontinue C. difficile testing le ? Hypokalemia, will replace 2. Anemia and thrombocytopenia in the setting of metastatic breast cancer/anxiety ? Continue with chemotherapy ? She follows with [facility] oncology ? Iron studies demonstrate a mixed picture, given chemotherapy and likely nutritional deficiency may benefit from iron supplementation. ? Fecal occult is pending ? Continue with low-dose Ativan as needed 3. Essential HTN/HLD ? Blood pressures are stable ? Resume her home blood pressure medications ? Will monitor and make adjustments as necessary 4. DM2 ? Continue with her insulin and sliding scale ? Accu-Cheks ACHS ? Will monitor and make adjustments as necessary 5. GERD ? Stable ? Continue with PPI 6. Primary biliary cirrhosis ? Follows outpatient with GI ? Continue with ursodiol DVT: Heparin Charges/Coding Visit Charges Inpatient E&M: 99861 Subs Hosp L2 11/17/24 0904 <Electronically signed by William Minaya MD> Cosigner Signature (if applicable): CC: ~ Signed [facility] Work Phone: 1(751) 811-900008-12-2025 Progress note [facility] Medical Records Department [address] [place] [address] Progress Note - Hospitalist 11/17/24 0859 MR#: [id number] Acct: [id number] Name: PAT SORTO Rep #:[id number] : 1960 64 From: William hooker MD PCP: Dr. Jacinta Rivas MD Status:AD M IN Location: UT3 TM916-8 Subjective Subjective Doing well today, no issues overnight. Hemoglobin did drop again unclear as to the etiology Objective Data Objective Data Vital Signs: Vital Signs Temp Pulse Resp BP Pulse Ox O2 Del Method 98.1 F 88 16 134/84 H 100 Room Air 11/17/24 08:56 11/17/24 08:56 11/17/24 08:56 11/17/24 08:56 11/17/24 08:56 11/17/24 08:56 Oxygen Delivery Method Room Air Weight: 179 lb 14.355 oz Body Mass Index (BMI) 28.9 Intake & Output: Intake and Output for Last 24 Hours 11/16/24 11/17/24 11/18/24 03:59 03:59 03:59 Intake Total 2100 / 2100 1050 / 1050 Output Total 100 / 100 950 / 950 Balance 2000 / 1999 100 / 100 Lab / Micro Data 11/17/24 04:43 11/17/24 04:43 Labs: Laboratory Results - last 24 hr 11/16/24 11:23: POC Glucose 109 H 11/16/24 17:12: POC Glucose 96 11/16/24 22:41: POC Glucose 108 H 11/17/24 04:43: WBC 5.5, RBC 2.96 L, Hgb 8.3 L, Hct 24.2 L, MCV 81.8, MCH 28.0, MCHC 34.3, RDW Std Deviation 38.8, RDW Coeff of Rosie 12.8, Plt Count 119 L, MPV 11.0, Immature Gran % (Auto) 0.700, Neut% (Auto) 73.7 H, Lymph % (Auto) 14.6 L,Pettis % (Auto) 10.6 H, Eos % (Auto) 0.2, Baso % (Auto) 0.2, Absolute Neuts (auto)4.1, Absolute Lymphs (auto) 0.81 L, Nucleated RBC % 0, Sodium 133, Potassium 2.9L, Chloride 100, Carbon Dioxide 18.0 L, Anion Gap 15, BUN 39 H, Creatinine 3.17 H, Estim Creat ClearCalc 19.05 L, Est GFR (MDRD) Non-Af 16 L, BUN/Creatinine Ratio 12.3, Glucose 78, Calcium 7.3 L, Phosphorus 2.2 L, Magnesium 1.7, Iron 12 L, TIBC 222 L, Iron Saturation 5.4 L, Unsaturated IBC 210 L, Ferritin 520 H 11/17/24 06:49: POC Glucose 78 Micro: Microbiology 11/15/24 19:12 Urine, Clean Catch Urine Culture - Final Escherichia coli Gram negative jessie 11/15/24 19:12 Mucosa - Nose SARS-CoV-2, Influenza & RSV (PCR) - Final Physical Exam Narrative General: Alert, Oriented x3, Cooperative, No apparent distress HEENT: Atraumatic, PERRLA, EOMI, Normocephalic Oral: Moist Mucosa Neck: Supple, No JVD Lungs: Clear to auscultation, Normal air movement, No rhonchi, No wheeze, No rales Cardiovascular: Regular rate, Regular Rhythm, Normal S1, Normal S2, No murmurs Abdomen: Soft, Non Tender, Non-Distended, No Hepato-splenomegaly Extremities: No edema Skin: No rashes, No breakdown Musculoskeletal: No Tenderness to Palpation of Joints or Extremities Neurological: No focal neurological deficits, Motor Exam 5/5 strength throughout, Sensory exam intact to light touch and pain Psych/Mental Status: Normal Affect, Appropriate Assessment & Plan Assessment/Plan (1) Urinary tract infection: PLAN: Plan 1. Acute UTI due to E. coli with LAXMI ? Urine urine cultures with an intermediately resistant E. coli, blood cultures are pending ? Continue with Rocephin ? Continue with IV fluids ? Creatinine is 3.1 today, will obtain urine studies and consult nephrology ?She has not had a bowel movement since admission therefore we will discontinue C. difficile testing le ? Hypokalemia, will replace 2. Anemia and thrombocytopenia in the setting of metastatic breast cancer/anxiety ? Continue with chemotherapy ? She follows with [facility] oncology ? Iron studies demonstrate a mixed picture, given chemotherapy and likely nutritional deficiency may benefit from iron supplementation. ? Fecal occult is pending ? Continue with low-dose Ativan as needed 3. Essential HTN/HLD ? Blood pressures are stable ? Resume her home blood pressure medications ? Will monitor and make adjustments as necessary 4. DM2 ? Continue with her insulin and sliding scale ? Accu-Cheks ACHS ? Will monitor and make adjustments as necessary 5. GERD ? Stable ? Continue with PPI 6. Primary biliary cirrhosis ? Follows outpatient with GI ? Continue with ursodiol DVT: Heparin Charges/Coding Visit Charges Inpatient E&M: 17721 Subs Hosp L2 11/17/24 0904 Cosigner Signature (if applicable): CC: ~ Signed [facility]08-11-2025 Progress note Author William Minaya [facility] Note Date/Time November 16, 2024 9: 40am [facility] Medical Records Department [address] [place] [address] Progress Note - Hospitalist 11/16/24 0929 MR#: [id number] Acct: [id number] Name: PAT SORTO Rep #:[id number] : 1960 64 From: William hooker MD PCP: Dr. Jacinta Rivas MD Status:AD M IN Location: UT3 [id number] Subjective Subjective Doing well, no issues overnight. Feels better. Objective Data Objective Data Vital Signs: Vital Signs Temp Pulse Resp BP Pulse Ox O2 Del Method 98.9 F 88 18 114/70 98 Room Air 11/16/24 09:26 11/16/24 09:26 11/16/24 09:26 11/16/24 09:26 11/16/24 09:26 11/16/24 09:26 Oxygen Delivery Method Room Air Weight: 176 lb 12.972 oz Body Mass Index (BMI) 28.4 Intake & Output: Intake and Output for Last 24 Hours 11/15/24 11/16/24 11/17/24 03:59 03:59 03:59 Intake Total 2099 / 2100 Output Total 100 / 100 200 / 200 Balance 1999 / 1999 -200 / -200 Lab / Micro Data 11/16/24 05:35 11/16/24 05:35 Labs: Laboratory Results - last 24 hr 11/15/24 18:47: WBC 12.9 H, RBC 3.28 L, Hgb 9.2 L, Hct 26.9 L, MCV 82.0, MCH 28.0, MCHC 34.2, RDW Std Deviation 39.1, RDW Coeff of Rosie 13.0, Plt Count 135 L,MPV 10.0, Immature Gran % (Auto) 0.300, Neut % (Auto) 86.5 H, Lymph % (Auto) 8.9L, Pettis % (Auto) 4.2, Eos % (Auto) 0.0, Baso % (Auto) 0.1, Absolute Neuts (auto)11.1 H, Absolute Lymphs (auto) 1.15, Nucleated RBC % 0, Sodium 130 L, Potassium 2.8 L, Chloride 93 L, Carbon Dioxide 22.6, Anion Gap 14, BUN 45 H, Creatinine 3.18 H, Estim Creat Clear Calc 18.75 L, Est GFR (MDRD) Non-Af 16 L, BUN/Creatinine Ratio 14.1, Glucose 123 H, Calcium 7.7, Phosphorus 2.7, Magnesium1.5 11/15/24 19:12: Urine Color Yellow, Urine Clarity Sl. Cloudy, Urine pH 5.0, Ur Specific [place] 1.010, Urine Protein 100 H, Urine Glucose (UA) Normal, Urine Ketones Negative, Urine Occult Blood 250 H, Urine Nitrite Negative, Urine Bilirubin Negative, Urine Urobilinogen Normal, Ur Leukocyte Esterase 500 H, Urine RBC 0-5 SEEN, Urine WBC >100 SEEN, Ur Squamous Epith Cells 0 SEEN, Ur Transition Epith Cell 0-5 SEEN, Ur Renal Epithelial Cell 0-5 SEEN, Urine Bacteria 2+, Urine Mucus 0 SEEN 11/16/24 05:35: WBC 8.0, RBC 3.11 L, Hgb 8.6 L, Hct 25.5 L, MCV 82.0, MCH 27.7, MCHC 33.7, RDW Std Deviation 38.8, RDW Coeff of Rosie 12.8, Plt Count 123 L, MPV 10.9, Immature Gran % (Auto) 0.400, Neut % (Auto) 83.6 H, Lymph % (Auto) 9.0 L, Pettis % (Auto) 6.9, Eos % (Auto) 0.0, Baso % (Auto) 0.1, Absolute Neuts (auto) 6.7, Absolute Lymphs (auto) 0.72 L, Nucleated RBC % 0, Sodium 134, Potassium 3.0L, Chloride 101, Carbon Dioxide 18.6 L, Anion Gap 14, BUN 42 H, Creatinine 3.17 H, Estim Creat Clear Calc 18.90 L, Est GFR (MDRD) Non-Af 16 L, BUN/Creatinine Ratio 13.3, Glucose 75, Calcium 7.0 L, Total Bilirubin 0.21, AST 69 H, ALT 25, Alkaline Phosphatase 57, Total Protein 6.1, Albumin 3.1 L, Globulin 3.0, Albumin/Globulin Ratio 1.0 11/16/24 06:27: POC Glucose 66 L 11/16/24 07:33: POC Glucose 133 H Micro: Microbiology 11/15/24 19:12 Mucosa - Nose SARS-CoV-2, Influenza & RSV (PCR) - Final Physical Exam Narrative General: Alert, Oriented x3, Cooperative, No apparent distress HEENT: Atraumatic, PERRLA, EOMI, Normocephalic Oral: Moist Mucosa Neck: Supple, No JVD Lungs: Clear to auscultation, Normal air movement, No rhonchi, No wheeze, No rales Cardiovascular: Regular rate, Regular Rhythm, Normal S1, Normal S2, No murmurs Abdomen: Soft, Non Tender, Non-Distended, No Hepato-splenomegaly Extremities: No edema Skin: No rashes, No breakdown Musculoskeletal: No Tenderness to Palpation of Joints or Extremities Neurological: No focal neurological deficits, Motor Exam 5/5 strength throughout, Sensory exam intact to light touch and pain Psych/Mental Status: Normal Affect, Appropriate Assessment & Plan Assessment/Plan (1) Urinary tract infection: PLAN: Plan 1. Acute UTI with LAXMI ? Urine and blood cultures are pending ? Continue with Rocephin ? Continue with IV fluids ? Creatinine is 3.1 today we will monitor as her baseline is around 1 ? She says diarrhea is improving however a C. difficile test is pending though unclear if she has been able to give a sample yet likely indicating that she does not have C. difficile ? Hypokalemia, will replace 2. Anemia and thrombocytopenia in the setting of metastatic breast cancer/anxiety ? Continue with chemotherapy ? She follows with [facility] oncology ? Continue with low-dose Ativan as needed 3. Essential HTN/HLD ? Blood pressures are stable ? Resume her home blood pressure medications ? Will monitor and make adjustments as necessary 4. DM2 ? Continue with her insulin and sliding scale ? Accu-Cheks ACHS ? Will monitor and make adjustments as necessary 5. GERD ? Stable ? Continue with PPI 6. Primary biliary cirrhosis ? Follows outpatient with GI ? Continue with ursodiol DVT: Heparin Charges/Coding Visit Charges Inpatient E&M: 80726 Subs Hosp L2 11/16/24 0940 <Electronically signed by William Minaya MD> Cosigner Signature (if applicable): CC: ~ Signed [facility] Work Phone: [phone]) 927-317108-11-2025 Progress note [facility] Medical Records Department [address] [place] [address] Progress Note - Hospitalist 11/16/24928 MR#: [id number] Acct: [id number] Name: PAT SORTO Rep #:[id number] : 1960 64 From: William hooker MD PCP: Dr. Jacinta Rivas MD Status:AD M IN Location: UT3 DU237-4 Subjective Subjective Doing well, no issues overnight. Feels better. Objective Data Objective Data Vital Signs: Vital Signs Temp Pulse Resp BP Pulse Ox O2 Del Method 98.9 F 88 18 114/70 98 Room Air 11/16/24 09:26 11/16/24 09:26 11/16/24 09:26 11/16/24 09:26 11/16/24 09:26 11/16/24 09:26 Oxygen Delivery Method Room Air Weight: 176 lb 12.972 oz Body Mass Index (BMI) 28.4 Intake & Output: Intake and Output for Last 24 Hours 11/15/24 11/16/24 11/17/24 03:59 03:59 03:59 Intake Total 2100 / 2100 Output Total 100 / 100 200 / 200 Balance 1999 / 1999 -200 / -200 Lab / Micro Data 11/16/24 05:35 11/16/24 05:35 Labs: Laboratory Results - last 24 hr 11/15/24 18:47: WBC 12.9 H, RBC 3.28 L, Hgb 9.2 L, Hct 26.9 L, MCV 82.0, MCH 28.0, MCHC 34.2, RDW Std Deviation 39.1, RDW Coeff of Rosie 13.0, Plt Count 135 L,MPV 10.0, Immature Gran % (Auto) 0.300, Neut % (Auto) 86.5 H, Lymph % (Auto) 8.9L, Pettis % (Auto) 4.2, Eos % (Auto) 0.0, Baso % (Auto) 0.1, Absolute Neuts (auto)11.1 H, Absolute Lymphs (auto) 1.15, Nucleated RBC % 0, Sodium 130 L, Potassium 2.8 L, Chloride 93 L, Carbon Dioxide 22.6, Anion Gap 14, BUN 45 H, Creatinine 3.18 H, Estim Creat Clear Calc 18.75 L, Est GFR (MDRD) Non-Af 16 L, BUN/Creatinine Ratio 14.1, Glucose 123 H, Calcium 7.7, Phosphorus 2.7, Magnesium1.5 11/15/24 19:12: Urine Color Yellow, Urine Clarity Sl. Cloudy, Urine pH 5.0, Ur Specific [place] 1.010, Urine Protein 100 H, Urine Glucose (UA) Normal, Urine Ketones Negative, Urine Occult Blood 250 H, Urine Nitrite Negative, Urine Bilirubin Negative, Urine Urobilinogen Normal, Ur Leukocyte Retcopfr270 H, Urine RBC 0-5 SEEN, Urine WBC >100 SEEN, Ur Squamous Epith Cells 0 SEEN, Ur Transition Epith Cell 0-5 SEEN, Ur Renal Epithelial Cell 0-5 SEEN, Urine Bacteria 2+, Urine Mucus 0 SEEN 11/16/24 05:35: WBC 8.0, RBC 3.11 L, Hgb 8.6 L, Hct 25.5 L, MCV 82.0, MCH 27.7, MCHC 33.7, RDW Std Deviation 38.8, RDW Coeff of Rosie 12.8, Plt Count 123 L, MPV 10.9, Immature Gran % (Auto) 0.400, Neut% (Auto) 83.6 H, Lymph % (Auto) 9.0 L, Pettis % (Auto) 6.9, Eos % (Auto) 0.0, Baso % (Auto) 0.1, Absolute Neuts (auto) 6.7, Absolute Lymphs (auto) 0.72 L, Nucleated RBC % 0, Sodium 134, Potassium 3.0L,Chloride 101, Carbon Dioxide 18.6 L, Anion Gap 14, BUN 42 H, Creatinine 3.17 H, Estim Creat Clear Calc 18.90 L, Est GFR (MDRD) Non-Af 16 L, BUN/Creatinine Ratio 13.3, Glucose 75, Calcium 7.0 L, TotalBilirubin 0.21, AST 69 H, ALT 25, Alkaline Phosphatase 57, Total Protein 6.1, Albumin 3.1 L, Globuli n 3.0, Albumin/Globulin Ratio 1.0 11/16/24 06:27: POC Glucose 66 L 11/16/24 07:33: POC Glucose 133 H Micro: Microbiology 11/15/24 19:12 Mucosa - Nose SARS-CoV-2, Influenza & RSV (PCR) - Final Physical Exam Narrative General: Alert, Oriented x3, Cooperative, No apparent distress HEENT: Atraumatic, PERRLA, EOMI, Normocephalic Oral: Moist Mucosa Neck: Supple, No JVD Lungs: Clear to auscultation, Normal air movement, No rhonchi, No wheeze, No rales Cardiovascular: Regular rate, Regular Rhythm, Normal S1, Normal S2, No murmurs Abdomen: Soft, Non Tender, Non-Distended, No Hepato-splenomegaly Extremities: No edema Skin: No rashes, No breakdown Musculoskeletal: No Tenderness to Palpation of Joints or Extremities Neurological: No focal neurological deficits, Motor Exam 5/5 strength throughout, Sensory exam intact to light touch and pain Psych/Mental Status: Normal Affect, Appropriate Assessment & Plan Assessment/Plan (1) Urinary tract infection: PLAN: Plan 1. Acute UTI with LAXMI ? Urine and blood cultures are pending ? Continue with Rocephin ? Continue with IV fluids ? Creatinine is 3.1 today we will monitor as her baseline is around 1 ? She says diarrhea is improving however a C. difficile test is pending though unclear if she has been able to give a sample yet likely indicating that she does not have C. difficile ? Hypokalemia, will replace 2. Anemia and thrombocytopenia in the setting of metastatic breast cancer/anxiety ? Continue with chemotherapy ? She follows with [facility] oncology ? Continue with low-dose Ativan as needed 3. Essential HTN/HLD ? Blood pressures are stable ? Resume her home blood pressure medications ? Will monitor and make adjustments as necessary 4. DM2 ? Continue with her insulin and sliding scale ? Accu-Cheks ACHS ? Will monitor and make adjustments as necessary 5. GERD ? Stable ? Continue with PPI 6. Primary biliary cirrhosis ? Follows outpatient with GI ? Continue with ursodiol DVT: Heparin Charges/Coding Visit Charges Inpatient E&M: 98076 Subs Hosp L2 11/16/24 0940 Cosigner Signature (if applicable): CC: ~ Signed [facility]08-11-2025 Discharge summary Author Tyson Doherty [facility] Note Date/Time November 16, 2024 2: 53am [facility] Medical Records Department [address] [place] [address] Emergency Department Summary 11/15/24 MR#: [id number] Acct: [id number] Name: PAT SORTO Rep #:[id number] : 1960 64 From: Tyson Slaughter PCP: Dr. Jacinta Rivas MD Status:AD M IN Location: MS3 [id number] HPI History of Present Illness Chief Complaint: General Illness Informant: patient Onset/Context/Timing Onset: Days (3) Context: Gradual Onset Timing: Continuous Quality: Weakness Location: Generalized Worsened by: Nothing Relieved by: Nothing Narrative Narrative: Patient presents with diarrhea and weakness that has been getting worse over thepast 3 days. Patient states she feels weak all over. Patient states it is gradually getting worse. Patient admits to decreased appetite. Patient states nothing makes her symptoms worse and nothing makes them better. Patient admits to some subjective fevers and chills. Patient also admits to some sweats. Patient admits to some decreased urine output but denies any dysuria or hematuria. [facility] Medical History History of removal of left breast implant (05/18/24) Acute kidney injury Chemotherapy induced cardiomyopathy Malignant neoplasm of lower-outer quadrant of left breast of female, estrogen receptor positive Type 2 diabetes mellitus with hyperglycemia Primary biliary cirrhosis History of chemotherapy Breast cancer Abnormal mammogram of left breast HTN (hypertension) Home Medications ?Medication ?Instructions ?Recorded ?Last Taken ?Type ascorbic acid (vitamin C) 100 mg 500 mg PO QDAY 05/20/24 History tablet vitamin E (dl, acetate) 45 mg (100 400 unit PO QDAY 05/20/24 History unit) capsule aspirin 81 mg chewable tablet 81 mg PO ONCE 04/04/17 0 05/20/24 History cyanocobalamin (vitamin B-12) 1,000 mcg PO DAILY 04/2305/20/24 History 1,000 mcg capsule ergocalciferol (vitamin D2) 1,250 50,000 unit PO QWEEK 09/03/23 Unknown History mcg (50,000 unit) capsule (Vitamin D2) everolimus (antineoplastic) 10 mg 10 mg PO DAILY 09/0205/20/24 History tablet exemestane 25 mg tablet 25 mg PO DAILY 09/03/2305/09 History lorazepam 0.5 mg tablet 0.5 mg PO TID PRN anxiety Unknown History pantoprazole 40 mg tablet,delayed 40 mg PO DAILY 09/0205/20/24 History release calcium carbonate 1,000 mg PO DAILY 10/09/23 U nknown History amlodipine 5 mg tablet 5 mg PO QDAY #90 tabs Unknown Rx insulin glargine 100 unit/mL (3 20 unit subcut QAM Unknown History mL) subcutaneous pen (Lantus Solostar U-100 Insulin) metoprolol succinate 25 mg 25 mg PO QDAY 07/02/24 Unkn own History tablet,extended release 24 hr ursodiol 500 mg tablet (LEENA Forte) 1,250 mg PO QDAY 0 07/02/24 Unknown History hydrochlorothiazide 12.5 mg tablet 12.5 mg PO QDAY Unknown History losartan 25 mg tablet 50 mg PO DAILY 11/15/24 Unkn own History tirzepatide 2.5 mg/0.5 mL 2.5 mg subcut QWEEK 11/15/24 Unknown History subcutaneous pen injector (Mounjaro) trazodone 50 mg tablet 50 mg PO QHS 11/15/24 Unknow n History Allergy/AdvReac Type Severity Reaction Status Date / Time No Known Allergies Allergy Verified 11/02/24 11:11 Family History Mother Diabetes Heart disease Hypertension CVA (cerebral vascular accident) Father Diabetes Hypertension Surgical History Hx of total mastectomy of left breast S/P breast biopsy S/P total knee replacement History of section Social History household members: spouse Smoking Status: Never smoker alcohol intake: current alcohol intake frequency: 0-2 drinks per day substance use type: does not use ROS ROS ED Constitutional Constitutional ED: Reports chills, fever(s), subjective and sweats Eyes Eyes: Reports blurry vision; Denies diplopia ENT ENT ED: Denies rhinorrhea or sore throat Cardiovascular Cardiovascular: Denies chest pain or palpitations Respiratory/Chest Respiratory/Chest: Denies cough or dyspnea Gastrointestinal Gastrointestinal: Reports diarrhea; Denies abdominal pain, nausea or vomiting Genitourinary Genitourinary ED: Denies dysuria or hematuria Musculoskeletal Musculoskeletal: Denies back pain or neck pain Integumentary Denies abscess or rash Neurologic Neurologic: Denies headache(s) or weakness Allergic/Immunologic Allergic/Immunologic ED: Denies mouth swelling or urticaria EXAM Physical Exam Const Vital Signs: 11/15/24 17:38 11/15/24 17:38 11/15/24 19:38 Temperature 97.8 F Temperature Source Oral Pulse Rate 92 86 Pulse Rate [Lying] Pulse Rate [Sitting (for 1 minute prior to obtaining)] Pulse Rate [Standing (for 1 minute prior to obtaining)] Respiratory Rate 18 16 Respiratory Effort Normal Non-Labored Respiratory Pattern Normal Blood Pressure 103/67 103/62 Blood Pressure [Lying] Blood Pressure [Sitting (for 1 minute prior to obtaining)] Blood Pressure [Standing (for 1 minute prior to obtaining)] Blood Pressure Mean 79 75 Blood Pressure Mean [Lying] Blood Pressure Mean [Sitting (for 1 minute prior to obtaining)] Blood Pressure Mean [Standing (for 1 minute prior to obtaining)] Pulse Ox 99 96 Oxygen Delivery Method Room Air Room Air 11/15/24 19:56 11/15/24 21:00 Temperature Temperature Source Pulse Rate 99 Pulse Rate [Lying] 90 Pulse Rate [Sitting (for 1 minute prior to obtaining)] 98 Pulse Rate [Standing (for 1 minute prior to obtaining)] 93 Respiratory Rate 16 Respiratory Effort Respiratory Pattern Blood Pressure 101/55 L Blood Pressure [Lying] 95/59 L Blood Pressure [Sitting (for 1 minute prior to obtaining)] 121/61 H Blood Pressure [Standing (for 1 minute prior to obtaining)] 93/52 L Blood Pressure Mean 70 Blood Pressure Mean [Lying] 71 Blood Pressure Mean [Sitting (for 1 minute prior to obtaining)] 81 Blood Pressure Mean [Standing (for 1 minute prior to obtaining)] 65 Pulse Ox 97 Oxygen Delivery Method Room Air Positive well nourished and well developed General Appearance ED: well developed and NAD HEENT Reports moist mucous membranes Neck supple and no JVD Resp normal respiratory effort and clear to auscultation bilaterally Cardio regular rate and regular rhythm GI non-tender and non-distended Palpation: soft Neuro oriented x3, CN's II-XII intact bilaterally and no sensory deficits noted Sensorium / Orientation: alert Motor Exam: strength 5/5 throughout Psych mental status grossly normal MDM MDM MDM Narrative Medical decision making narrative: Differential diagnosis includes pneumonia, bronchitis, electrolyte abnormality, dehydration, urinary tract infection, and anxiety. CBC will be obtained to assess for leukocytosis and anemia. Basic metabolic profile will be obtained toassess for electrolyte abnormality or renal function. Urinalysis will be obtained to assess for urinary tract infection and hematuria. COVID-19, influenza, and RSV PCR will be obtained to assess for viral illness. History & Record Review Additional record(s) reviewed:: Prior outpatient record and Prior labs Lab Data Attestation: I reviewed the patient's lab results. Lab results narrative: CBC was reviewed. There is a leukocytosis of 12.9. Hemoglobin is slightly low at 9.2 and hematocrit was 26.9. Platelet count was slightly low at 135. Basic metabolic profile was reviewed. Sodium was low at 130 and potassium was low at 2.8. Chloride was low at 93. BUN was elevated at 45 and creatinine was elevated at 3.98. These were new compared to previous results. Urinalysis was reviewed. Leukocyte esterase was 500. There are greater than 100 white blood cells and 2+ bacteria. COVID-19 PCR was reviewed and was negative. Influenza PCR was reviewed and was negative for influenza A and influenza B. RSV PCR was reviewed and was negative. Labs: Laboratory Results - last 24 hr 11/15/24 11/15/24 18:47 19:12 WBC 12.9 H RBC 3.28 L Hgb 9.2 L Hct 26.9 L MCV 82.0 MCH 28.0 MCHC 34.2 RDW Std Deviation 39.1 RDW Coeff of Rosie 13.0 Plt Count 135 L MPV 10.0 Immature Gran % (Auto) 0.300 Neut % (Auto) 86.5 H Lymph % (Auto) 8.9 L Pettis % (Auto) 4.2 Eos % (Auto) 0.0 Baso % (Auto) 0.1 Absolute Neuts (auto) 11.1 H Absolute Lymphs (auto) 1.15 Nucleated RBC % 0 Sodium 130 L Potassium 2.8 L Chloride 93 L Carbon Dioxide 22.6 Anion Gap 14 BUN 45 H Creatinine 3.18 H Estim Creat Clear Calc 18.75 L Est GFR (MDRD) Non-Af 16 L BUN/Creatinine Ratio 14.1 Glucose 123 H Calcium 7.7 Phosphorus 2.7 Magnesium 1.5 Urine Color Yellow Urine Clarity Sl. Cloudy Urine pH 5.0 Ur Specific [place] 1.010 Urine Protein 100 H Urine Glucose (UA) Normal Urine Ketones Negative Urine Occult Blood 250 H Urine Nitrite Negative Urine Bilirubin Negative Urine Urobilinogen Normal Ur Leukocyte Esterase 500 H Urine RBC 0-5 SEEN Urine WBC >100 SEEN Ur Squamous Epith Cells 0 SEEN Ur Transition Epith Cell 0-5 SEEN Ur Renal Epithelial Cell 0-5 SEEN Urine Bacteria 2+ Urine Mucus 0 SEEN Management Discussion w/another healthcare provider: Hospitalist Treatment and Re-Evaluation :: Patient was given IV fluids. Patient was given a dose of oral potassium. Patient was advised of her findings. Patient was given a dose of Rocephin. Patient was advised of the need for hospitalization. Patient is agreeable with this. Case was discussed with the hospitalist. She will admit the patient to her service. Patient understood and was agreeable with the plan. All questionswere answered. Discharge Plan Dx/Rx/DC Orders Clinical Impression: Acute kidney injury, Hypokalemia, Breast cancer, Urinary tract infection Disposition Disposition: Acute Care Hospital [facility] Discharge Date/Time: 11/15/24 23:08 What to do if you have Problems For any increased pain, shortness of breath, bleeding, nausea or vomiting, chestpain, or any unexpected problems, contact your Primary Care Provider. Call [facility] ([phone]) or report to the closest Emergency Room. Call 911 if necessary. 11/16/24 0253 <Electronically signed by Tyson Doherty DO> Cosigner Signature (if applicable): CC: Dr. Jacinta Rivas MD ~ Signed [facility] Work Phone: [phone] Discharge summary [facility] Medical Records Department [address] [place] [address] Emergency Department Summary 11/15/24 MR#: [id number] Acct: [id number] Name: PAT SORTO Rep #:[id number] : 1960 64 From: Tyson Slaughter PCP: Dr. Jacinta Rivas MD Status:AD M IN Location: MS3 VE520-6 HPI History of Present Illness Chief Complaint: General Illness Informant: patient Onset/Context/Timing Onset: Days (3) Context: Gradual Onset Timing: Continuous Quality: Weakness Location: Generalized Worsened by: Nothing Relieved by: Nothing Narrative Narrative: Patient presents with diarrhea and weakness that has been getting worse over thepast 3 days. Patient states she feels weak all over. Patient states it is gradually getting worse. Patient admits to decreased appetite. Patient states nothing makes her symptoms worse and nothing makes them better. Patient admits to some subjective fevers and chills. Patient also admits to some sweats. Patient admitsto some decreased urine output but denies any dysuria or hematuria. [facility] Medical History History of removal of left breast implant (05/18/24) Acute kidney injury Chemotherapy induced cardiomyopathy Malignant neoplasm of lower-outer quadrant of left breast of female, estrogen receptor positive Type 2 diabetes mellitus with hyperglycemia Primary biliary cirrhosis History of chemotherapy Breast cancer Abnormal mammogram of left breast HTN (hypertension) Home Medications ?Medication ?Instructions ?Recorded ?Last Taken ?Type ascorbic acid (vitamin C) 100 mg 500 mg PO QDAY 05/20/24 History tablet vitamin E (dl, acetate) 45 mg (100 400 unit PO QDAY 05/20/24 History unit) capsule aspirin 81 mg chewable tablet 81 mg PO ONCE 04/04/17 0 05/20/24 History cyanocobalamin (vitamin B-12) 1,000 mcg PO DAILY 04/2305/20/24 History 1,000 mcg capsule ergocalciferol (vitamin D2) 1,250 50,000 unit PO QWEEK 09/03/23 Unknown History mcg (50,000 unit) capsule (Vitamin D2) everolimus (antineoplastic) 10 mg 10 mg PO DAILY 09/0205/20/24 History tablet exemestane 25 mg tablet 25 mg PO DAILY 09/03/2305/09 History lorazepam 0.5 mg tablet 0.5 mg PO TID PRN anxiety Unknown History pantoprazole 40 mg tablet,delayed 40 mg PO DAILY 09/0205/20/24 History release calcium carbonate 1,000 mg PO DAILY 10/09/23 U nknown History amlodipine 5 mg tablet 5 mg PO QDAY #90 tabs Unknown Rx insulin glargine 100 unit/mL (3 20 unit subcut QAM Unknown History mL) subcutaneous pen (Lantus Solostar U-100 Insulin) metoprolol succinate 25 mg 25 mg PO QDAY 07/02/24 Unkn own History tablet,extended release 24 hr ursodiol 500 mg tablet (LEENA Forte) 1,250 mg PO QDAY 0 07/02/24 Unknown History hydrochlorothiazide 12.5 mg tablet 12.5 mg PO QDAY Unknown History losartan 25 mg tablet 50 mg PO DAILY 11/15/24 Unkn own History tirzepatide 2.5 mg/0.5 mL 2.5 mg subcut QWEEK 11/15/24 Unknown History subcutaneous pen injector (Mounjaro) trazodone 50 mg tablet 50 mg PO QHS 11/15/24 Unknow n History Allergy/AdvReac Type Severity Reaction Status Date / Time No Known Allergies Allergy Verified 11/02/24 11:11 Family History Mother Diabetes Heart disease Hypertension CVA (cerebral vascular accident) Father Diabetes Hypertension Surgical History Hx of total mastectomy of left breast S/P breast biopsy S/P total knee replacement History of section Social History household members: spouse Smoking Status: Never smoker alcohol intake: current alcohol intake frequency: 0-2 drinks per day substance use type: does not use ROS ROS ED Constitutional Constitutional ED: Reports chills, fever(s), subjective and sweats Eyes Eyes: Reports blurry vision; Denies diplopia ENT ENT ED: Denies rhinorrhea or sore throat Cardiovascular Cardiovascular: Denies chest pain or palpitations Respiratory/Chest Respiratory/Chest: Denies cough or dyspnea Gastrointestinal Gastrointestinal: Reports diarrhea; Denies abdominal pain, nausea or vomiting Genitourinary Genitourinary ED: Denies dysuria or hematuria Musculoskeletal Musculoskeletal: Denies back pain or neck pain Integumentary Denies abscess or rash Neurologic Neurologic: Denies headache(s) or weakness Allergic/Immunologic Allergic/Immunologic ED: Denies mouth swelling or urticaria EXAM Physical Exam Const Vital Signs: 11/15/24 17:38 11/15/24 17:38 11/15/24 19:38 Temperature 97.8 F Temperature Source Oral Pulse Rate 92 86 Pulse Rate [Lying] Pulse Rate [Sitting (for 1 minute prior to obtaining)] Pulse Rate [Standing (for 1 minute prior to obtaining)] Respiratory Rate 18 16 Respiratory Effort Normal Non-Labored Respiratory Pattern Normal Blood Pressure 103/67 103/62 Blood Pressure [Lying] Blood Pressure [Sitting (for 1 minute prior to obtaining)] Blood Pressure [Standing (for 1 minute prior to obtaining)] Blood Pressure Mean 79 75 Blood Pressure Mean [Lying] Blood Pressure Mean [Sitting (for 1 minute prior to obtaining)] Blood Pressure Mean [Standing (for 1 minute prior to obtaining)] Pulse Ox 99 96 Oxygen Delivery Method Room Air Room Air 11/15/24 19:56 11/15/24 21:00 Temperature Temperature Source Pulse Rate 99 Pulse Rate [Lying] 90 Pulse Rate [Sitting (for 1 minute prior to obtaining)] 98 Pulse Rate [Standing (for 1 minute prior to obtaining)] 93 Respiratory Rate 16 Respiratory Effort Respiratory Pattern Blood Pressure 101/55 L Blood Pressure [Lying] 95/59 L Blood Pressure [Sitting (for 1 minute prior to obtaining)] 121/61 H Blood Pressure [Standing (for 1 minute prior to obtaining)] 93/52 L Blood Pressure Mean 70 Blood Pressure Mean [Lying] 71 Blood Pressure Mean [Sitting (for 1 minute prior to obtaining)] 81 Blood Pressure Mean [Standing (for 1 minute prior to obtaining)] 65 Pulse Ox 97 Oxygen Delivery Method Room Air Positive well nourished and well developed General Appearance ED: well developed and NAD HEENT Reports moist mucous membranes Neck supple and no JVD Resp normal respiratory effort and clear to auscultation bilaterally Cardio regular rate and regular rhythm GI non-tender and non-distended Palpation: soft Neuro oriented x3, CN's II-XII intact bilaterally and no sensory deficits noted Sensorium / Orientation: alert Motor Exam: strength 5/5 throughout Psych mental status grossly normal MDM MDM MDM Narrative Medical decision making narrative: Differential diagnosis includes pneumonia, bronchitis, electrolyte abnormality, dehydration, urinary tract infection, and anxiety. CBC will be obtained to assess for leukocytosis and anemia. Basic metabolic profile will be obtained toassess for electrolyte abnormality or renal function. Urinalysis will be obtained to assess for urinary tract infection and hematuria. COVID-19, influenza, and RSV PCR will be obtained to assess for viral illness. History & Record Review Additional record(s) reviewed:: Prior outpatient record and Prior labs Lab Data Attestation: I reviewed the patient's lab results. Lab results narrative: CBC was reviewed. There is a leukocytosis of 12.9. Hemoglobin is slightly low at 9.2 and hematocritwas 26.9. Platelet count was slightly low at 135. Basic metabolic profile was reviewed. Sodium was low at 130 and potassium was low at 2.8. Chloride was low at 93. BUN was elevated at 45 and creatinine was elevated at 3.98. These were new compared to previous results. Urinalysis was reviewed. Leukocyte esterase was 500. There are greater than 100 white blood cells and 2+ bacteria. COVID-19 PCR was reviewed and was negative. Influenza PCR was reviewed and was negative for influenza A and influenza B. RSV PCR was reviewed and was negative. Labs: Laboratory Results - last 24 hr 11/15/24 11/15/24 18:47 19:12 WBC 12.9 H RBC 3.28 L Hgb 9.2 L Hct 26.9 L MCV 82.0 MCH 28.0 MCHC 34.2 RDW Std Deviation 39.1 RDW Coeff of Rosie 13.0 Plt Count 135 L MPV 10.0 Immature Gran % (Auto) 0.300 Neut % (Auto) 86.5 H Lymph % (Auto) 8.9 L Pettis % (Auto) 4.2 Eos % (Auto) 0.0 Baso % (Auto) 0.1 Absolute Neuts (auto) 11.1 H Absolute Lymphs (auto) 1.15 Nucleated RBC % 0 Sodium 130 L Potassium 2.8 L Chloride 93 L Carbon Dioxide 22.6 Anion Gap 14 BUN 45 H Creatinine 3.18 H Estim Creat Clear Calc 18.75 L Est GFR (MDRD) Non-Af 16 L BUN/Creatinine Ratio 14.1 Glucose 123 H Calcium 7.7 Phosphorus 2.7 Magnesium 1.5 Urine Color Yellow Urine Clarity Sl. Cloudy Urine pH 5.0 Ur Specific [place] 1.010 Urine Protein 100 H Urine Glucose (UA) Normal Urine Ketones Negative Urine Occult Blood 250 H Urine Nitrite Negative Urine Bilirubin Negative Urine Urobilinogen Normal Ur Leukocyte Esterase 500 H Urine RBC 0-5 SEEN Urine WBC >100 SEEN Ur Squamous Epith Cells 0 SEEN Ur Transition Epith Cell 0-5 SEEN Ur Renal Epithelial Cell 0-5 SEEN Urine Bacteria 2+ Urine Mucus 0 SEEN Management Discussion w/another healthcare provider: Hospitalist Treatment and Re-Evaluation :: Patient was given IV fluids. Patient was given a dose of oral potassium. Patient was advised of herfindings. Patient was given a dose of Rocephin. Patient was advised of the need for hospitalization. Patient is agreeable with this. Case was discussed with the hospitalist. She will admit the patient to her service. Patient understood and was agreeable with the plan. All questionswere answered. Discharge Plan Dx/Rx/DC Orders Clinical Impression: Acute kidney injury, Hypokalemia, Breast cancer, Urinary tract infection Disposition Disposition: Acute Care Hospital [facility] Discharge Date/Time: 11/15/24 23:08 What to do if you have Problems For any increased pain, shortness of breath, bleeding, nausea or vomiting, chestpain, or any unexpected problems, contact your Primary Care Provider. Call [facility] ([phone]) or report tothe closest Emergency Room. Call 911 if necessary. 11/16/24 0253 Cosigner Signature (if applicable): CC: Dr. Jacinta Rivas MD ~ Signed [facility]08-11-2025 History and physical note Author Meri Vu [facility] Note Date/Time November 15, 2024 10 :50pm [facility] Medical Records Department [address] [place] [id number] H&P Exam - Hospitalist 11/15/24 2214 MR#: [id number] Acct: [id number] Name: PAT SORTO Rep #:[id number] : 1960 64 From: Meri Vu MD PCP: Dr. Jacinta Rivas MD Status:AD M IN Location: UT3 [id number] HPI - General General Date of Admission: 11/15/24 Date of Service: 11/15/24 Chief Complaint: Decreased oral intake, decreased UOP, diarrhea. HPI Narrative The patient is a 64 y/o F w/ PMHx: CKD stage II per GFR trending, Chronic anemia, Overweight, GERD, Diabetes mellitus type II, HTN, HLD, Hx L breast CA unclear specific type s/p L total breast mastectomy considered in remission, Primary biliary cirrhosis who presents to the [facility] ED on 11/15/2024 with significant fatigue, malaise, increasing weakness as well as loose stools over the last 3 days with decreased oral intake with subjective fevers and chills and diaphoresis with decreased urine output prompting eventualED evaluation. She does report that she had urinary intact infection approximate 1 month prior specifically E. coli and at that time was treated withAugmentin as far as recent antibiotic therapies but none since. Workup in the EDincluded T97.8, heart rate 92, BP 103/67, respiratory 18, 99% on room air, notable orthostatic vital signs although slightly atypical with laying 95/59, sitting 121/61, standing 93/52 with no heart rate alteration, most recent repeatvitals of heart rate 99, BP 101/55, respiratory rate 16, 97% on room air, CBC with WC 12.9, hemoglobin 9.2, MCV 82, platelet 135 with left shift, BMP with sodium 130, potassium 2.8, chloride 93, BUN/canaille 45/3.18, GFR 16, glucose 123, urinalysis noted to be cloudy, protein 100, occult blood 250, nitrate negative, leukocyte esterase 500 with urine WBCs greater than 100 with 2+ bacteria with urine culture pending per ED, rapid SARS COVID/)/RSV PCR negative. In the ED patient ministered 1 L normal saline, potassium 40 mill equivalent p.o. x 1, IV Rocephin 1 g x 1. [facility] Medical History History of removal of left breast implant (05/18/24) Acute kidney injury Chemotherapy induced cardiomyopathy Malignant neoplasm of lower-outer quadrant of left breast of female, estrogen receptor positive Type 2 diabetes mellitus with hyperglycemia Primary biliary cirrhosis History of chemotherapy Breast cancer Abnormal mammogram of left breast HTN (hypertension) Home Medications ?Medication ?Instructions ?Recorded ?Last Taken ?Type ascorbic acid (vitamin C) 100 mg 500 mg PO QDAY 05/20/24 History tablet vitamin E (dl, acetate) 45 mg (100 400 unit PO QDAY 05/20/24 History unit) capsule aspirin 81 mg chewable tablet 81 mg PO ONCE 04/04/17 0 05/20/24 History cyanocobalamin (vitamin B-12) 1,000 mcg PO DAILY 04/2305/20/24 History 1,000 mcg capsule ergocalciferol (vitamin D2) 1,250 50,000 unit PO QWEEK 09/03/23 Unknown History mcg (50,000 unit) capsule (Vitamin D2) everolimus (antineoplastic) 10 mg 10 mg PO DAILY 09/0205/20/24 History tablet exemestane 25 mg tablet 25 mg PO DAILY 09/03/2305/09 History lorazepam 0.5 mg tablet 0.5 mg PO TID PRN anxiety Unknown History pantoprazole 40 mg tablet,delayed 40 mg PO DAILY 09/0205/20/24 History release calcium carbonate 1,000 mg PO DAILY 10/09/23 U nknown History amlodipine 5 mg tablet 5 mg PO QDAY #90 tabs Unknown Rx insulin glargine 100 unit/mL (3 20 unit subcut QAM Unknown History mL) subcutaneous pen (Lantus Solostar U-100 Insulin) metoprolol succinate 25 mg 25 mg PO QDAY 07/02/24 Unkn own History tablet,extended release 24 hr ursodiol 500 mg tablet (LEENA Forte) 1,250 mg PO QDAY 0 07/02/24 Unknown History hydrochlorothiazide 12.5 mg tablet 12.5 mg PO QDAY Unknown History losartan 25 mg tablet 50 mg PO DAILY 11/15/24 Unkn own History tirzepatide 2.5 mg/0.5 mL 2.5 mg subcut QWEEK 11/15/24 Unknown History subcutaneous pen injector (Mounjaro) trazodone 50 mg tablet 50 mg PO QHS 11/15/24 Unknow n History Allergy/AdvReac Type Severity Reaction Status Date / Time No Known Allergies Allergy Verified 11/02/24 11:11 Family History Mother Diabetes Heart disease Hypertension CVA (cerebral vascular accident) Father Diabetes Hypertension Surgical History Hx of total mastectomy of left breast S/P breast biopsy S/P total knee replacement History of section Social History household members: spouse Smoking Status: Never smoker alcohol intake: current alcohol intake frequency: 0-2 drinks per day substance use type: does not use ROS ROS Narrative Admission Review of Systems: CONSTITUTIONAL: No weight loss, + fever, chills, weakness or fatigue. HEENT: Eyes: No visual loss, blurred vision, double vision or yellow sclerae. Ears, Nose, Throat: No hearing loss, sneezing, congestion, runny nose or sore throat. SKIN: No rash or itching, lesions, wounds. CARDIOVASCULAR: No chest pain, chest pressure or chest discomfort, palpitations,edema, orthopnea, syncopal events. RESPIRATORY: No shortness of breath, cough or sputum, wheezing, hemoptysis. GASTROINTESTINAL: + anorexia, nausea, diarrhea. No vomiting, abdominal pain, melena, BRBPR. GENITOURINARY: + Decreased urine output. No dysuria, frequency, urgency or retention. NEUROLOGICAL: No headache, dizziness, syncope, paralysis, ataxia, numbness or tingling in the extremities, focal weakness, change in bowel or bladder control,seizure. MUSCULOSKELETAL: + muscle, back pain, joint pain or stiffness. HEMATOLOGIC: + Chronic anemia, easy bleeding/bruising. LYMPHATICS: No enlarged nodes. No history of splenectomy. PSYCHIATRIC: + History of anxiety. ENDOCRINOLOGIC: No reports of sweating, cold or heat intolerance. No polyuria orpolydipsia. ALLERGIES: No history of asthma, hives, eczema or rhinitis. Vital Signs Vital Signs Vital Signs: 11/15/24 17:38 11/15/24 17:38 11/15/24 19:38 Temperature 97.8 F Temperature Source Oral Pulse Rate 92 86 Pulse Rate [Lying] Pulse Rate [Sitting (for 1 minute prior to obtaining)] Pulse Rate [Standing (for 1 minute prior to obtaining)] Respiratory Rate 18 16 Respiratory Effort Normal Non-Labored Respiratory Pattern Normal Blood Pressure 103/67 103/62 Blood Pressure [Lying] Blood Pressure [Sitting (for 1 minute prior to obtaining)] Blood Pressure [Standing (for 1 minute prior to obtaining)] Blood Pressure Mean 79 75 Blood Pressure Mean [Lying] Blood Pressure Mean [Sitting (for 1 minute prior to obtaining)] Blood Pressure Mean [Standing (for 1 minute prior to obtaining)] Pulse Ox 99 96 Oxygen Delivery Method Room Air Room Air 11/15/24 19:56 11/15/24 21:00 Temperature Temperature Source Pulse Rate 99 Pulse Rate [Lying] 90 Pulse Rate [Sitting (for 1 minute prior to obtaining)] 98 Pulse Rate [Standing (for 1 minute prior to obtaining)] 93 Respiratory Rate 16 Respiratory Effort Respiratory Pattern Blood Pressure 101/55 L Blood Pressure [Lying] 95/59 L Blood Pressure [Sitting (for 1 minute prior to obtaining)] 121/61 H Blood Pressure [Standing (for 1 minute prior to obtaining)] 93/52 L Blood Pressure Mean 70 Blood Pressure Mean [Lying] 71 Blood Pressure Mean [Sitting (for 1 minute prior to obtaining)] 81 Blood Pressure Mean [Standing (for 1 minute prior to obtaining)] 65 Pulse Ox 97 Oxygen Delivery Method Room Air Weight Weight: 175 lb Body Mass Index (BMI) 28.2 Physical Exam Narrative Physical Examination: General: Awake, alert, oriented x 3 and cooperative, seated upright in the ED bed in no apparent distress, fatigued but denies any acute complaints at this time. Skin: Normal color, normal turgor, no icterus, no cyanosis except occasional stage ecchymoses, abrasion. HEENT: AT/NC, EOMI, PERRLA, moderately dry MM, no carotid bruits or JVD noted. Lungs: CTA bilaterally, moderate effort, mild decrease BL bases, no rales, ronchi or wheezing. Heart: Mildly tachycardic with regular rhythm; no gallop, rub audible. Abdomen: Soft, overweight, NTTP, ND, mildly hyperactive BS, no appreciated HSM. Extremities: No cyanosis, no clubbing, no significant pitting edema noted. Neurological: Patient awake, alert, oriented as noted, cognitive function intact; pupils equally reactive to light and accommodation, cranial nerves grossly normal, moving all 4 extremities, no focal deficits, strength moderatelyglobally decreased secondary to acute presentation complaints. Psychiatric: Affect appears mildly flat, fatigued, no acute evidence of depressive or anxiety feelings but does have underlying anxiety history. Results Lab / Micro Data 11/15/24 18:47 11/15/24 18:47 Labs: Laboratory Results - last 24 hr 11/15/24 18:47: WBC 12.9 H, RBC 3.28 L, Hgb 9.2 L, Hct 26.9 L, MCV 82.0, MCH 28.0, MCHC 34.2, RDW Std Deviation 39.1, RDW Coeff of Rosie 13.0, Plt Count 135 L,MPV 10.0, Immature Gran % (Auto) 0.300, Neut % (Auto) 86.5 H, Lymph % (Auto) 8.9L, Pettis % (Auto) 4.2, Eos % (Auto) 0.0, Baso % (Auto) 0.1, Absolute Neuts (auto)11.1 H, Absolute Lymphs (auto) 1.15, Nucleated RBC % 0, Sodium 130 L, Potassium 2.8 L, Chloride 93 L, Carbon Dioxide 22.6, Anion Gap 14, BUN 45 H, Creatinine 3.18 H, Estim Creat Clear Calc 18.75 L, Est GFR (MDRD) Non-Af 16 L, BUN/Creatinine Ratio 14.1, Glucose 123 H, Calcium 7.7 11/15/24 19:12: Urine Color Yellow, Urine Clarity Sl. Cloudy, Urine pH 5.0, Ur Specific [place] 1.010, Urine Protein 100 H, Urine Glucose (UA) Normal, Urine Ketones Negative, Urine Occult Blood 250 H, Urine Nitrite Negative, Urine Bilirubin Negative, Urine Urobilinogen Normal, Ur Leukocyte Esterase 500 H, Urine RBC 0-5 SEEN, Urine WBC >100 SEEN, Ur Squamous Epith Cells 0 SEEN, Ur Transition Epith Cell 0-5 SEEN, Ur Renal Epithelial Cell 0-5 SEEN, Urine Bacteria 2+, Urine Mucus 0 SEEN Micro: Microbiology 11/15/24 19:12 Mucosa - Nose SARS-CoV-2, Influenza & RSV (PCR) - Final Assessment & Plan Assessment/Plan (1) Urinary tract infection: PLAN: Plan The patient is a 64 y/o F w/ PMHx: CKD stage II per GFR trending, Chronic anemia, Overweight, GERD, Diabetes mellitus type II, HTN, HLD, Hx L breast CA unclear specific type s/p L total breast mastectomy considered in remission, Primary biliary cirrhosis who presents to the [facility] ED on 11/15/2024 with significant fatigue, malaise, increasing weakness as well as loose stools over the last 3 days with decreased oral intake with subjective fevers and chills and diaphoresis with decreased urine output prompting eventualED evaluation. #1. Acute Urinary Tract Infection: Will admit to [facility] upon ED evaluation remarkable, pending UCx, will continue IVFs, monitor I/Os, continue IV Rocephin w/ transition as able pending sensitivities and speciation. Bld cx x 2 obtained in the ED. #2. Acute kidney injury on CKD stage II per previous GFR trending although has occasionally vacillated: Secondary to acute presentation as noted #1, in addition to GI losses and poor oral intake hypovolemic component. Admission BUN/Cr 45/3.18, GFR 16, prior baseline creatinine noted to be primarily 0.8-1.1.Will continue to aggressively hydrate, hold nephrotoxic medications and repeat chemistry in AM. #3. Persistent diarrhea, potentially gastroenteritis versus secondary to #1: Will continue aggressive hydration, will obtain c diff, stool cx to be cautioushowever do suspect likely secondary to acute complicated urinary tract infection, as noted will maintain on IV Rocephin in the interim. #4. Thrombocytopenia, acute: Admission platelets 135, no prior significant thrombocytopenia noted, potentially reactive given acute presentation as noted above, will trend CBC. Cautiously using chemoprophylaxis as noted. #5. Hyponatremia, hypochloremia, suspected hypovolemic etiology secondary to GIlosses and poor intake: Admission sodium 130, chloride 93, likely hypovolemic especially given #1 presentation, will continue aggressive hydration, repeat CMPin AM. #6. Hypokalemia: Admission K+ 2.8, magnesium level requested, supplementation given, repeat level in AM. #7. Hx L breast CA unclear specific type: s/p L total breast mastectomy considered in remission, encouraged continued outpatient follow-up as previouslyarranged. Clarifying chronic regimen as listed on everolimus and exemestane. #8. Primary biliary cirrhosis: Noted in history, will obtain CMP in a.m. is only BMP obtained upon presentation, will continue patient on ursodiol regimen, continue to encourage outpatient GI evaluation and follow-up. #9. Hypertension: Will temporally hold hypertensive regimen as BP low normal inthe ED as well as LAXMI, resume once clinically appropriate. #10. Chronic normocytic anemia: Admission hemoglobin 9.2, MCV 82, has vacillated, baseline hemoglobin more recently noted to be low 10 range, will continue to trend. #11. Overweight: Weight loss and lifestyle changes encouraged. #12. Anxiety: Will cautiously continue patient low-dose as needed lorazepam regimen, hold for sedation, do not want to cause patient withdrawal but if necessary with worsening renal function will hold. #13. Diabetes mellitus type II: Hold oral home regimen, continue home insulin regimen, encourage oral intake/ADA diet, accu checks w/ ISS. #14. GERD: Will continue patient on PPI. #15. Hyperlipidemia: Not on regimen, potential secondary to underlying primary biliary cirrhosis, defer to outpatient. #16. DVT prophylaxis: Heparin. #17. CODE status: Patient GUILHERME is her and living will is currently in place. Discussed CODE status at length including difference between FULL code, DNR-CCA and DNR-CC status. Following discussions about the differences in these status, requested Full Code status. Charges/Coding Visit Charges Inpatient E&M: 95830 Init Hosp L3 11/15/24 2250 <Electronically signed by Meri Vu MD> Cosigner Signature (if applicable): CC: Dr. Meri Vu MD; Dr. Jacinta Rivas MD~ Signed [facility] Work Phone: [phone]) 373-345208-10-2025 History and physical note [facility] Medical Records Department [address] [place] [address] H&P Exam - Hospitalist 11/15/24 2214 MR#: [id number] Acct: [id number] Name: PAT SORTO Rep #:[id number] : 1960 64 From: Meri Vu MD PCP: Dr. Jacinta Rivas MD Status:AD M IN Location: MS3 [id number] HPI - General General Date of Admission: 11/15/24 Date of Service: 11/15/24 Chief Complaint: Decreased oral intake, decreased UOP, diarrhea. HPI Narrative The patient is a 64 y/o F w/ PMHx: CKD stage II per GFR trending, Chronic anemia, Overweight, GERD,Diabetes mellitus type II, HTN, HLD, Hx L breast CA unclear specific type s/p L total breast mastectomy considered in remission, Primary biliary cirrhosis who presents to the [facility] ED on 11/15/2024 with significant fatigue, malaise, increasing weakness as well as loose stools over the last 3 days with decreased oral intake with subjective fevers and chills and diaphoresis withdecreased urine output prompting eventualED evaluation. She does report that she had urinary intactinfection approximate 1 month prior specifically E. coli and at that time was treated withAugmentinas far as recent antibiotic therapies but none since. Workup in the EDincluded T97.8, heart rate 92, BP 103/67, respiratory 18, 99% on room air, notable orthostatic vital signs although slightly atypical with laying 95/59, sitting 121/61, standing 93/52 with no heart rate alteration, most recent rep eatvitals of heart rate 99, BP 101/55, respiratory rate 16, 97% on room air, CBC with WC 12.9, hemoglobin 9.2, MCV 82, platelet 135 with left shift, BMP with sodium 130, potassium 2.8, chloride 93, BUN/canaille 45/3.18, GFR 16, glucose 123, urinalysis noted to be cloudy, protein 100, occult blood 250, nitrate negative, leukocyte esterase 500 with urine WBCs greater than 100 with 2+ bacteria with urine culture pending per ED, rapid SARS COVID/)/RSV PCR negative. In the ED patient ministered 1 L normal saline, potassium 40 mill equivalent p.o. x 1, IV Rocephin 1 g x 1. [facility] Medical History History of removal of left breast implant (05/18/24) Acute kidney injury Chemotherapy induced cardiomyopathy Malignant neoplasm of lower-outer quadrant of left breast of female, estrogen receptor positive Type 2 diabetes mellitus with hyperglycemia Primary biliary cirrhosis History of chemotherapy Breast cancer Abnormal mammogram of left breast HTN (hypertension) Home Medications ?Medication ?Instructions ?Recorded ?Last Taken ?Type ascorbic acid (vitamin C) 100 mg 500 mg PO QDAY 05/20/24 History tablet vitamin E (dl, acetate) 45 mg (100 400 unit PO QDAY 05/20/24 History unit) capsule aspirin 81 mg chewable tablet 81 mg PO ONCE 04/04/17 0 05/20/24 History cyanocobalamin (vitamin B-12) 1,000 mcg PO DAILY 04/2305/20/24 History 1,000 mcg capsule ergocalciferol (vitamin D2) 1,250 50,000 unit PO QWEEK 09/03/23 Unknown History mcg (50,000 unit) capsule (Vitamin D2) everolimus (antineoplastic) 10 mg 10 mg PO DAILY 09/0205/20/24 History tablet exemestane 25 mg tablet 25 mg PO DAILY 09/03/2305/09 History lorazepam 0.5 mg tablet 0.5 mg PO TID PRN anxiety Unknown History pantoprazole 40 mg tablet,delayed 40 mg PO DAILY 09/0205/20/24 History release calcium carbonate 1,000 mg PO DAILY 10/09/23 U nknown History amlodipine 5 mg tablet 5 mg PO QDAY #90 tabs Unknown Rx insulin glargine 100 unit/mL (3 20 unit subcut QAM Unknown History mL) subcutaneous pen (Lantus Solostar U-100 Insulin) metoprolol succinate 25 mg 25 mg PO QDAY 07/02/24 Unkn own History tablet,extended release 24 hr ursodiol 500 mg tablet (LEENA Forte) 1,250 mg PO QDAY 0 07/02/24 Unknown History hydrochlorothiazide 12.5 mg tablet 12.5 mg PO QDAY Unknown History losartan 25 mg tablet 50 mg PO DAILY 11/15/24 Unkn own History tirzepatide 2.5 mg/0.5 mL 2.5 mg subcut QWEEK 11/15/24 Unknown History subcutaneous pen injector (Mounjaro) trazodone 50 mg tablet 50 mg PO QHS 11/15/24 Unknow n History Allergy/AdvReac Type Severity Reaction Status Date / Time No Known Allergies Allergy Verified 11/02/24 11:11 Family History Mother Diabetes Heart disease Hypertension CVA (cerebral vascular accident) Father Diabetes Hypertension Surgical History Hx of total mastectomy of left breast S/P breast biopsy S/P total knee replacement History of section Social History household members: spouse Smoking Status: Never smoker alcohol intake: current alcohol intake frequency: 0-2 drinks per day substance use type: does not use ROS ROS Narrative Admission Review of Systems: CONSTITUTIONAL: No weight loss, + fever, chills, weakness or fatigue. HEENT: Eyes: No visual loss, blurred vision, double vision or yellow sclerae. Ears, Nose, Throat: No hearing loss, sneezing, congestion, runny nose or sore throat. SKIN: No rash or itching, lesions, wounds. CARDIOVASCULAR: No chest pain, chest pressure or chest discomfort, palpitations,edema, orthopnea, syncopal events. RESPIRATORY: No shortness of breath, cough or sputum, wheezing, hemoptysis. GASTROINTESTINAL: + anorexia, nausea, diarrhea. No vomiting, abdominal pain, melena, BRBPR. GENITOURINARY: + Decreased urine output. No dysuria, frequency, urgency or retention. NEUROLOGICAL: No headache, dizziness, syncope, paralysis, ataxia, numbness or tingling in the extremities, focal weakness, change in bowel or bladder control,seizure. MUSCULOSKELETAL: + muscle, back pain, joint pain or stiffness. HEMATOLOGIC: + Chronic anemia, easy bleeding/bruising. LYMPHATICS: No enlarged nodes. No history of splenectomy. PSYCHIATRIC: + History of anxiety. ENDOCRINOLOGIC: No reports of sweating, cold or heat intolerance. No polyuria orpolydipsia. ALLERGIES: No history of asthma, hives, eczema or rhinitis. Vital Signs Vital Signs Vital Signs: 11/15/24 17:38 11/15/24 17:38 11/15/24 19:38 Temperature 97.8 F Temperature Source Oral Pulse Rate 92 86 Pulse Rate [Lying] Pulse Rate [Sitting (for 1 minute prior to obtaining)] Pulse Rate [Standing (for 1 minute prior to obtaining)] Respiratory Rate 18 16 Respiratory Effort Normal Non-Labored Respiratory Pattern Normal Blood Pressure 103/67 103/62 Blood Pressure [Lying] Blood Pressure [Sitting (for 1 minute prior to obtaining)] Blood Pressure [Standing (for 1 minute prior to obtaining)] Blood Pressure Mean 79 75 Blood Pressure Mean [Lying] Blood Pressure Mean [Sitting (for 1 minute prior to obtaining)] Blood Pressure Mean [Standing (for 1 minute prior to obtaining)] Pulse Ox 99 96 Oxygen Delivery Method Room Air Room Air 11/15/24 19:56 11/15/24 21:00 Temperature Temperature Source Pulse Rate 99 Pulse Rate [Lying] 90 Pulse Rate [Sitting (for 1 minute prior to obtaining)] 98 Pulse Rate [Standing (for 1 minute prior to obtaining)] 93 Respiratory Rate 16 Respiratory Effort Respiratory Pattern Blood Pressure 101/55 L Blood Pressure [Lying] 95/59 L Blood Pressure [Sitting (for 1 minute prior to obtaining)] 121/61 H Blood Pressure [Standing (for 1 minute prior to obtaining)] 93/52 L Blood Pressure Mean 70 Blood Pressure Mean [Lying] 71 Blood Pressure Mean [Sitting (for 1 minute prior to obtaining)] 81 Blood Pressure Mean [Standing (for 1 minute prior to obtaining)] 65 Pulse Ox 97 Oxygen Delivery Method Room Air Weight Weight: 175 lb Body Mass Index (BMI) 28.2 Physical Exam Narrative Physical Examination: General: Awake, alert, oriented x 3 and cooperative, seated upright in the ED bed in no apparent distress, fatigued but denies any acute complaints at this time. Skin: Normal color, normal turgor, no icterus, no cyanosis except occasional stage ecchymoses, abrasion. HEENT: AT/NC, EOMI, PERRLA, moderately dry MM, no carotid bruits or JVD noted. Lungs: CTA bilaterally, moderate effort, mild decrease BL bases, no rales, ronchi or wheezing. Heart: Mildly tachycardic with regular rhythm; no gallop, rub audible. Abdomen: Soft, overweight, NTTP, ND, mildly hyperactive BS, no appreciated HSM. Extremities: No cyanosis, no clubbing, no significant pitting edema noted. Neurological: Patient awake, alert, oriented as noted, cognitive function intact; pupils equally reactive to light and accommodation, cranial nerves grossly normal, moving all 4 extremities, no focaldeficits, strength moderatelyglobally decreased secondary to acute presentation complaints. Psychiatric: Affect appears mildly flat, fatigued, no acute evidence of depressive or anxiety feelings but does have underlying anxiety history. Results Lab / Micro Data 11/15/24 18:47 11/15/24 18:47 Labs: Laboratory Results - last 24 hr 11/15/24 18:47: WBC 12.9 H, RBC 3.28 L, Hgb 9.2 L, Hct 26.9 L, MCV 82.0, MCH 28.0, MCHC 34.2, RDW Std Deviation 39.1, RDW Coeff of Rosie 13.0, Plt Count 135 L,MPV 10.0, Immature Gran % (Auto) 0.300, Neut % (Auto) 86.5 H, Lymph % (Auto) 8.9L, Pettis % (Auto) 4.2, Eos % (Auto) 0.0, Baso % (Auto) 0.1, Absolute Neuts (auto)11.1 H, Absolute Lymphs (auto) 1.15, Nucleated RBC % 0, Sodium 130 L, Potassium 2.8 L, Chloride 93 L, Carbon Dioxide 22.6, Anion Gap 14, BUN 45 H, Creatinine 3.18 H, Estim Creat Clear Calc 18.75 L, Est GFR (MDRD) Non-Af 16 L, BUN/Creatinine Ratio 14.1, Glucose 123 H, Calcium 7.7 11/15/24 19:12: Urine Color Yellow, Urine Clarity Sl. Cloudy, Urine pH 5.0, Ur Specific [place] 1.010, Urine Protein 100 H, Urine Glucose (UA) Normal, Urine Ketones Negative, Urine Occult Blood 250 H, Urine Nitrite Negative, Urine Bilirubin Negative, Urine Urobilinogen Normal, Ur Leukocyte Yigtjjgs570 H, Urine RBC 0-5 SEEN, Urine WBC >100 SEEN, Ur Squamous Epith Cells 0 SEEN, Ur Transition Epith Cell 0-5 SEEN, Ur Renal Epithelial Cell 0-5 SEEN, Urine Bacteria 2+, Urine Mucus 0 SEEN Micro: Microbiology 11/15/24 19:12 Mucosa - Nose SARS-CoV-2, Influenza & RSV (PCR) - Final Assessment & Plan Assessment/Plan (1) Urinary tract infection: PLAN: Plan The patient is a 64 y/o F w/ PMHx: CKD stage II per GFR trending, Chronic anemia, Overweight, GERD,Diabetes mellitus type II, HTN, HLD, Hx L breast CA unclear specific type s/p L total breast mastectomy considered in remission, Primary biliary cirrhosis who presents to the [facility] ED on 11/15/2024 with significant fatigue, malaise, increasing weakness as well as loose stools over the last 3 days with decreased oral intake with subjective fevers and chills and diaphoresis withdecreased urine output prompting eventualED evaluation. #1. Acute Urinary Tract Infection: Will admit to [facility] upon ED evaluation remarkable, pending UCx,will continue IVFs, monitor I/Os, continue IV Rocephin w/ transition as able pending sensitivities and speciation. Bld cx x 2 obtained in the ED. #2. Acute kidney injury on CKD stage II per previous GFR trending although has occasionally vacillated: Secondary to acute presentation as noted #1, in addition to GI losses and poor oral intake hypovolemic component. Admission BUN/Cr 45/3.18, GFR 16, prior baseline creatinine noted to be primarily0.8- 1.1.Will continue to aggressively hydrate, hold nephrotoxic medications and repeat chemistry Mag. #3. Persistent diarrhea, potentially gastroenteritis versus secondary to #1: Will continue aggressive hydration, will obtain c diff, stool cx to be cautioushowever do suspect likely secondary to acute complicated urinary tract infection, as noted will maintain on IV Rocephin in the interim. #4. Thrombocytopenia, acute: Admission platelets 135, no prior significant thrombocytopenia noted, potentially reactive given acute presentation as noted above, will trend CBC. Cautiously using chemoprophylaxis as noted. #5. Hyponatremia, hypochloremia, suspected hypovolemic etiology secondary to GIlosses and poor intake: Admission sodium 130, chloride 93, likely hypovolemic especially given #1 presentation, will continue aggressive hydration, repeat CMPin AM. #6. Hypokalemia: Admission K+ 2.8, magnesium level requested, supplementation given, repeat level in AM. #7. Hx L breast CA unclear specific type: s/p L total breast mastectomy considered in remission, encouraged continued outpatient follow-up as previouslyarranged. Clarifying chronic regimen as listed on everolimus and exemestane. #8. Primary biliary cirrhosis: Noted in history, will obtain CMP in a.m. is only BMP obtained upon presentation, will continue patient on ursodiol regimen, continue to encourage outpatient GI evaluation and follow-up. #9. Hypertension: Will temporally hold hypertensive regimen as BP low normal inthe ED as well as LAXMI, resume once clinically appropriate. #10. Chronic normocytic anemia: Admission hemoglobin 9.2, MCV 82, has vacillated, baseline hemoglobin more recently noted to be low 10 range, will continue to trend. #11. Overweight: Weight loss and lifestyle changes encouraged. #12. Anxiety: Will cautiously continue patient low-dose as needed lorazepam regimen, hold for sedation, do not want to cause patient withdrawal but if necessary with worsening renal function will hold. #13. Diabetes mellitus type II: Hold oral home regimen, continue home insulin regimen, encourage oral intake/ADA diet, accu checks w/ ISS. #14. GERD: Will continue patient on PPI. #15. Hyperlipidemia: Not on regimen, potential secondary to underlying primary biliary cirrhosis, defer to outpatient. #16. DVT prophylaxis: Heparin. #17. CODE status: Patient GUILHERME is her and living will is currently in place. Discussed CODE status at length including difference between FULL code, DNR-CCA and DNR-CC status. Following discussions about the differences in these status, requested Full Code status. Charges/Coding Visit Charges Inpatient E&M: 95040 Init Hosp L3 11/15/24 2250 Cosigner Signature (if applicable): CC: Dr. Meri Vu MD; Dr. Jacinta Rivas MD~ Signed [facility]08-06-2025 NoteHNO ID: [id number] Author: MILAGROS BROWN, PT Service: ? Author [...] Patient to be seen for Therapeutic exercise (87664), Manual therapy (07201), Self-halfway management (84784), Patient/Family/Caregiver Education, Therapeutic activities (46839) (lymphedema program) PLAN FOR NEXT VISIT: lymphedema program SUBJECTIVE: no pump yet, trying to figure out order. pump people say they sent it but doctor hasn't received it. needs the pump before she leaves for [place]. having lymph dye test tomorrow. Asked if [...] care and goals. Deyvi (more content not included)...[facility]08-01-2025 Telephone encounter Note* Telephone Encounter - Saadia Gonsales - 11/06/2024 10:54 AM EDT Images from the original note were not included. tirzepatide (MOUNJARO) 2.5 mg/0.5 mL pen injector has been approved [facility] Prior Medicaid Specialist [facility] Endocrinology & Metabolism [facility]08-01-2025 Miscellaneous Notes* Telephone Encounter - Saadia Gonsales - 11/06/2024 10:54 AM EDT Images from the original note were not included. tirzepatide (MOUNJARO) 2.5 mg/0.5 mL pen injector has been approved Notified patient through [employer] SUBHASH HURLEY Prior Medicaid Specialist [facility] Endocrinology & Metabolism * Telephone Encounter - Saadia Gonsales - 11/06/2024 10:42 AM EDT Initiated PA for tirzepatide (MOUNJARO) 2.5 mg/0.5 mL pen injector through [employer] via [employer] Clinical notes and labs attached Questions Completed Waiting for determination SUBHASH HURLEY Prior Medicaid Specialist III [facility] Endocrinology & Metabolism documented in this encounterNationwide [facility]08-[facility]-2025 Telephone encounter Note * Telephone Encounter - Saadia Gonsales - 11/06/2024 10:42 AM EDT Initiated PA for tirzepatide (MOUNJARO) 2.5 mg/0.5 mL pen injector through [employer] via [employer] Clinical notes and labs attached Questions Completed Waiting for determination SUBHASH HURLEY Prior Medicaid Specialist III [facility] Endocrinology & Metabolism [facility]08-01-2025 NoteHNO ID: [id number] Author: NOE JACKSON PTA Service: ? Author Type: Supervisor Transferring And Boxing Type: Progress Notes Filed: 11/06/2024 10:50 Note [...] taking it with her on vacation to [place]. Was riding her bike yesterday and took [...] Session Stop Time : 1031 Noe Jackson [facility]08-01-2025 History of Present illness Narrative* Noe Jackson PTA - 11/06/2024 9:48 AM EDT Episode Visit Count: 13 Therapist That Will [...] taking it with her on vacation to [place]. Was riding her bike yesterday and took [...] 1031 Noe Jackson PTA documented in this encounterNationwide [facility]07-31-2025 Telephone encounter Note * Telephone Encounter - Daisy Titus APRN.CNP - 11/05/2024 3:14 PM EDT . [facility]07-31-2025 Miscellaneous Notes* Telephone Encounter - Daisy Titus APRN.CNP - 11/05/2024 3:14 PM EDT . documented in this encounterNationwide Children'[facility] Hospital07-30-2025 NoteHNO ID: [id number] Author: NOE JACKSON PTA Service: ? Author Type: Supervisor Transferring And Boxing Type: Progress Notes Filed: 11/04/2024 11:55 Note [...] Session Stop Time : 1116 Noe Jackson [facility]07-30-2025 History of Present illness Narrative* Noe Jackson PTA - 11/04/2024 10:42 AM EDT Episode Visit Count: 12 Therapist That Will [...] wall. She is wearing her sleeve daily, woreit yesterday for about 8 or 9 hours. [...] 1116 Noe Jackson PTA documented in this encounterNationwide Children'S Hospital07-28-2025 Evaluation note* Diagnosis Onset Date Resolution Status Admit Date 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, 2024 11:07am HTN (hypertension) chronic October 072024 11:07am Hyperlipemia, mixed chronic November 02, 2024 11:07am Acute kidney injury acute 2024 10:14pm Breast cancer acute November 10:14pm Hypokalemia acute November 15, 2024 10:14pm Urinary tract infection acute A ug2024 10:14pm [facility] Work Phone: 1(650) 175-243407-28-2025 Evaluation note* Diagnosis Onset Date Resolution Status Admit Date 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, 2024 11:07am HTN (hypertension) chronic October 072024 11:07am Hyperlipemia, mixed chronic November 02, 2024 11:07am Acute kidney injury acute 2024 10:14pm Breast cancer acute November 10:14pm Breast cancer metastasized t o axillary lymph node acute November 15, 2024 10:14pm History of chemotherapy acute A 2024 10:14pm Hypocalcemia acute November 15, 2024 10:14pm Hypokalemia acute November 15, 2024 10:14pm Iron deficiency anemia acute [place] 2024 10:14pm Type 2 diabetes mellitus wit h hyperglycemia acute November 15 10:14pm Urinary tract infection acute A ug2024 10:14pm HTN (hypertension) chronic November 15, 2024 10:14pm [facility] Work Phone: 1(752) 353-145107-25-2025 NoteHNO ID: [id number] Author: NOE JACKSON PTA Service: ? Author Type: Supervisor Transferring And Boxing Type: Progress Notes Filed: 10/30/2024 15:55 Note [...] FOR NEXT VISIT: Continue with MLD SUBJECTIVE: [place] good after last session and by night [...] Session Stop Time : 1552 Noe Jackson [facility]07-25-2025 History of Present illness Narrative* Noe Jackson PTA - 10/30/2024 3:08 PM EDT Episode Visit Count: 11 Therapist That Will Accept/Oversee The Plan Of Care: Milagros Ernestosukhjinder PT Start of Care Date: 08/27/24 Onset [...] FOR NEXT VISIT: Continue with MLD SUBJECTIVE: [place] good after last session and by night [...] anterior/posterior forearm -- L wrist/hand --fingers -- followup Skilled Intervention: Manual skills to improve joint mobility, ROM, and decrease pain. Utilized anatomy knowledge of the clinician, and assessment of patient's response to intervention. Billing Therapeutic Exercise Treatment Minutes: 5 Manual TherapyTreatment Minutes: 40 Total Session Time (minutes): 45 Session Start Time : 1507 Session Stop Time : 1552 Noe Jackson PTA documented in this encounterNationwide Children'[facility]07-25-2025 History of Present illness Narrative* Serena Carrasco, - 10/30/2024 9:51 AM EDT Diagnosis: 1) Breast cancer. HPI: The patient is a 64-year-old female who has a past medical history significant for hypertension and primary biliary cirrhosis. She is seen by her accounts receivable accountant approximately once a year and she has had stable findings. Most recent liver chemistries performed at [facility] on 01/10/2017 showed a total bilirubin of [...] Evidently she was on a trip to [place] about 2 1/2 years ago when she [...] greatest length). ER (clone 6F11) >95%, strong [place] (clone 16/1E2) >95%, strong Her-2Neu (clone CB11) [...] Previously performed (HER2) ERBB2 Status: Previously performed Scrapper Tumor Block: Specify: B3 Residual tumor burden: Tumor bed dimension #1: 8 mm Tumor bed dimension #2: 5 mm Overall tumor cellularity 50% Percentage in situ 3% Comment: Please see [id number] for the results of estrogen and progesterone receptors and HER2 studies. 3) Anastrozole on [facility] clinical trial. Stopped 08/2022. Metastatic disease. Had [...] was performed on block A1 [facility] and compared to appropriate reactive controls. [...] everolimus second week April 2023. Was at [facility]. Had PET scan on 05/02. Demonstrated [...] She's having a hard time breaking HCTZ inhalf. No oral sores/ulcerations. Lips get irritated. Using [...] was discussed with the patient or authorized senior customer service representative. The patient or authorized senior customer service representative has agreed to proceed with the [...] internal mammary merlyn involvement) MX stage IIIC ER/NY positive, HER2 non overexpressed invasive ductal carcinoma of the right breast. -KPS is 100%. -PET scan indicated disease left chest wall and mediastinal lymph nodes. -MRI brain negative. -Biopsy-proven disease recurrence left chest wall inferior and posterior to implant. -ER positive (99% strong staining intensity), NY positive (2% with strong staining intensity), HER22+; nonamplified by FISH testing. 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 -MRI Breast 03/28/2023 demonstrated PD and therapy was rotated to Faslodex and Afinitor. Oncology at [facility] recommended exemestane with Afinitor. 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 Plan: -Continue follow up with cardiology. (I89.0) Lymphedema of left arm Assessment: -Recurrent. -Seeing PT in [place]. Is to get home lymphatic pump. Plan: - Follow-up with physical therapy. HTN -Rx HCTZ 12.5 mg tablets. Portions of this documentation were copied and pasted from my previous office visit note dated 07/09/2024 in order to provide a cohesive continuity of the history. The note has been reviewed and editedand updated as necessary. Serena Carrasco DO documented in this encounterNationwide Children'S Hospital07-23-2025 NoteHNO ID: [id number] Author: NOE JACKSON PTA Service: ? Author Type: Supervisor Transferring And Boxing Type: Progress Notes Filed: 10/28/2024 16:36 Note [...] post MLD this date. Reached out to [facility] for pump to check in on status of coverage for pump as well as assisted pt with direct contact of pt edgerman to schedule lymphangiography as doctor requested. The patient will continue to benefit from ongoing skilled physical therapy to progress toward set goals. PLAN FOR NEXT VISIT: Continue with MLD SUBJECTIVE: By night time her arm is pretty stiff. Having a difficult time flexing her wrist and supinating her forearm, feels tight and tender to do this. Went to safety aide, they said the redness is stagnant blood [...] Assisted pt with direct contact with pt edgerman from [facility] for lymphangiography procedure, as [...] Time : 1551 Session Stop Time : 1628 [facility] of Present illness Narrative* Noe Jackson [facility] - 10/28/2024 3:51 PM EDT Episode Visit Count: 10 Therapist That Will [...] assisted pt with direct contact of pt edgerman to schedule lymphangiography as doctor requested. The patient will continue to benefit from ongoing skilled physical therapy to progress toward set goals. PLAN FOR NEXT VISIT: Continue with MLD SUBJECTIVE: By night time her arm is pretty stiff. Having a difficult time flexing her wrist and supinating her forearm, feels tight and tender to do this. Went to safety aide, they said the rednessis stagnant blood in her arm. No more e coli with her culture test but still something there. Is onanother prescription now for this. The sleeve is [...] anterior/posterior forearm -- L wrist/hand --fingers -- followup Skilled Intervention: Manual skills to improve joint mobility, ROM, and decrease pain. Utilized anatomy knowledge of the clinician, and assessment of patient's response to intervention. Self-Fdc Management: 2: Assisted pt with direct contact with pt edgerman from [facility] for lymphangiography procedure, as well as [...] Session Stop Time : 1628 Noe Jackson PTA documented in this encounterNationwide Children'S Hospital07-21-2025 History of Present illness Narrative* Lisbet Pizano APRN.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 - 10/26/2024 2:33 PM EDT SUBJECTIVE Pat Sorto is a 64 year [...] which she attributes to a reaction from doxycyclineand sun exposure. The rash was characterized by [...] daily. DROPLET PEN NEEDLE 31 gauge x 06/21 1 each two times a day. ursodiol (LEENA) 250 mg tablet Take 250 mg by mouth two times a day. (Patient taking differently: Take 2-3 tablets by mouth two times a day. Takes 3 tablets in AM and 2 tablets in PM) ONETOUCH ULTRA PLUS TEST strp 1 Each two times a day. E11.65; No insulin (Patient taking differently: 1 each two times a day. E11.65) Lancets Use with blood glucose test two times a day. Insulin Dep? No blood sugar diagnostic (BLOOD GLUCOSE TEST) test strip Use with blood glucose test two times a day.Insulin Dep? No No current facility-administered medications for this visit. ALLERGIES Allergen Reactions Amoxicillin Rash rash arms trunk neck face, itching Chills Tolerates [facility] ACTIVE PROBLEM LIST Gastroesophageal Reflux Disease - 05/04/2024 Type 2 Diabetes Mellitus Without Complication, With Long-Term Current Use of Insulin (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) - 08/16/2022 Class 1 Obesity Due to Excess Calories With Serious Comorbidity and Body Mass Index (Bmi) of 32.0 to 32.9 in Adult - 08/09/2022 Carcinoma of Left Breast Metastatic to Skin (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) - 04/19/2017 Social History Tobacco Use Smoking [...] any further strain on kidneys. Recording using Chatwala software for draft documentation of the visit was discussed with the patient/authorized senior customer service representative; all questions welcomed and answered. Patient/authorized senior customer service representative agreed to proceed Portions of this [...] from today's visit and in agreement with treatmentplan. Questions answered. Agrees to call the office [...] as well as compliance with taking medications. Age- appropriate health preventative measures were discussed. Return if symptoms worsen or fail to improve, for Keep next scheduled appointment.. Lisbet Pizano APRN-SONIDO documented in this encounterNationwide Children'S Hospital07-21-2025 History of Present illness Narrative* Myla Do, RT(R) - 10/26/2024 9:30 AM EDT RADIOLOGY SERVICE PROGRESS NOTE SERVICE DATE: 10/26/2024 [...] PATIENT PRESENTS WITH AN IMPLANTABLE OR ATTACHED ELECTRIC MOTOR ASSEMBLER AND TESTER: No CREATININE: Creatinine Date Value Ref Range [...] 941 PATIENT DISCHARGED TO: Ambulatory patient, left [place] department area. Is this a therapy: No A Diagnostic radioactive procedure has taken place, with no further precautions necessary other than routine body substance precautions. More information regarding radiation safety can be found usingthis link: [email or web address] SIGNATURE: PATRICIA Ying) PATIENT NAME: Pat Sorto DATE: October 26, 2024 TIME: 9:47 AM PAGER/CONTACT #: documented in this encounterNationwide Children'S Hospital07-21-2025 NoteHNO ID: [id number] Author: MYLA DO RT (R) Service: Nuclear [...] PATIENT PRESENTS WITH AN IMPLANTABLE OR ATTACHED ELECTRIC MOTOR ASSEMBLER AND TESTER: No CREATININE: Creatinine Date Value Ref Range [...] DIAGNOSTIC CT PERFORMED: No IV SITE: Ambulatory: PR only - direct IV injection in the Right antecubital site POST EXAM PIV STATUS: Discontinued PROCEDURE TYPE: NM INJECT: PET/CT BODY SCAN. 10.9 mCi F18 FDG. Administered By: mo . No other medications given.. ADMINISTRATION TIME: 0942 PATIENT DISCHARGED TO: Ambulatory patient, left [place] department area. Is this a therapy: No A Diagnostic radioactive procedure has taken place, with no further precautions necessary other than routine body substance precautions. More information regarding radiation safety can be found using this link: [email or web address] SIGNATURE: RT Deonna(R) PATIENT NAME: Pat Sorto DATE: October 26, 2024 TIME: 9:47 AM [facility]AGER[facility]CONTACT [phone] NoteHNO ID: [id number] Author: NOE JACKSON PTA Service: ? Author Type: Supervisor Transferring And Boxing Type: Progress Notes Filed: 10/22/2024 15:55 Note [...] 1426 Session Stop Time : 1508 [facility] History of Present illness Narrative* Noe Jackson [facility] - 10/22/2024 2:26 PM EDT Episode Visit Count: 9 Therapist That Will [...] by 1cm compared to previous progress note. Wediscussed wearing her sleeve and glove throughout her [...] anterior/posterior forearm -- L wrist/hand --fingers -- followup 2: Fit with new sleeve and older [...] 1508 Noe Jackson PTA documented in this encounterNationwide Children'S Hospital07-16-2025 NoteHNO ID: [id number] Author: NOE JACKSON PTA Service: ? Author Type: Supervisor Transferring And Boxing Type: Progress Notes Filed: 10/21/2024 16:37 Note [...] THERAPY PHYSICAL THERAPY TREATMENT NOTE ASSESSMENT: Pat Angelita Komara tolerated the session with expected muscle soreness. [...] procedure scheduled. Has not heard from the edgerman yet. Her arm is not worse. Is [...] 1545 Session Stop Time : 1630 [facility] History of Present illness Narrative* Noe Jackson [facility] - 10/21/2024 3:43 PM EDT Episode Visit Count: 8 Therapist That Will [...] pt try to put her sleeve on onceshe gets home if it is comfortable. The patient will continue to benefit from ongoing skilled physical therapy to progress toward set goals. PLAN FOR NEXT VISIT: Continue with MLD; bandaging trial SUBJECTIVE: Saw doctor last week, is supposed to have the dye procedure scheduled. Has not heard from the edgerman yet. Her arm is not worse. Is [...] anterior/posterior forearm -- L wrist/hand --fingers -- followup Skilled Intervention: Manual skills to improve joint mobility, ROM, and decrease pain. Utilized anatomy knowledge of the clinician, and assessment of patient's response to intervention. Billing Manual TherapyTreatment Minutes: 45 Skilled Treatment Time Minutes (timed and untimed codes): 45 Total Session Time (minutes): 45 Session Start Time : 1545 Session Stop Time : 1630 Noe Jackson PTA documented in this encounterNationwide Children'[facility] Hospital07-10-2025 Instructions* Patient Instructions* Mino Beard APRN.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 - 10/15/2024 4:12 PM EDT - Continue [...] on and perform brief manual drainage sessions onthe plane to counteract pressure changes. - Expect a call from Erica, the surgical nurse, to set up your indocyanine green (ICG) [...] coli UTI and finish the antibiotic course asprescribed. - Remember that lymphedema is a chronic condition requiring ongoing management with therapy, compression, and, when needed, surgical support. documented in this encounterNationwide Children'S Hospital07-10-2025 History of Present illness Narrative* Mino Beard APRN.CNP - 10/15/2024 1:35 PM EDT Plastic Surgery Post Op Note CC: post op HPI: Pat Sorto is a 64 year old female who presents s/p Date of Surgery: 05/18/2024 Surgery: Left Breast Total Capsulectomy and Implant Removal Time Postop: 5 months Last Office Visit: She has significant left upper extremity lymphedema which goes to her hand and makes holding a golfclub difficult. She has not started compression yet. [...] (HCC) followed by Dr. Husam Hart in [place] PAST SURGICAL HISTORY Procedure Laterality Date ARTHRP ACETBLR/PROX FEM PROSTC AGRFT/ALGRFT Right 03/20/2019 Hip replacement, total ARTHRP KNE CONDYLE&PLATU MEDIAL&LAT COMPARTMENTS Left 02/2016 BIOPSY BREAST OPEN INCISIONAL Left 2007 [facility] benign pathology per patient BREAST RECONSTRUCTION Left [...] tablet by mouth at bedtime as needed. Solar Pool TechnologiesTOUCH ULTRA PLUS TEST strp 1 Each two times a day. E11.65; No insulin Lancets Use with blood glucose test two times a day. Insulin Dep? No blood sugar diagnostic (BLOOD GLUCOSE TEST) test strip Use with blood glucose test two times a day.Insulin Dep? No aspirin, enteric coated (ASPIRIN, ENTERIC [...] (ICG) lymphography to assess lymphatic flow and identifyany disruptions. - Explained the ICG procedure, including subdermal injection of fluorescent dye in three spots (twoon the top of the hand, one on the back of the wrist) to visualize lymphatic drainage. - Scheduled ICG lymphography; surgical nurse Erica will contact the patient to arrange the appointment, preferably on a Saturday or Saturday at the main campus. - Discussed potential surgical interventions based on ICG findings, including liposuction to removefibrotic tissue and possible lymphaticovenular anastomosis to reroute lymphatic channels. - Advised continuation of MLD, compression garments, and use of a compression pump to manage symptoms. - Patient is planning to travel to [place] in five weeks; advised maintaining compression and [...] to clinic for ICG procedure- will message Erica to get scheduled Mino Beard APRN.CNP October 15, 2024 documented in this encounterNationwide Children'S Hospital07-10-2025 NoteHNO ID: [id number] Author: NOE JACKSON PTA Service: ? Author Type: Supervisor Transferring And Boxing Type: Progress Notes Filed: 10/15/2024 16:31 Note [...] 1033 Session Stop Time : 1107 Noe JacksonSam[facility] History of Present illness Narrative* Noe Jackson [facility] - 10/15/2024 10:32 AM EDT Episode Visit Count: 7 Therapist That Will [...] on MLD this date as pt has onlybeen on antibiotics a couple of days and has not noticed a change in symptoms. Will resume MLD at ne xt visit as long as symptoms are not [...] 1107 Noe Jackson PTA documented in this encounterNationwide Children'S Hospital07-09-2025 History of Present illness Narrative* Daisy Titus, FELICIA.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 - 10/14/2024 11:45 AM EDT OFFICE VISIT PROGRESS NOTE CC Pat Sorto [...] going to be seeing PharmD [place] in [place], a lot of walking, different diet Sugars [...] > -- < > -- 12 -- 16 18 13 -- AST -- < > 15 < > -- < > -- 16 -- 21 20 -- UCRR -- -- -- -- -- [...] 12 -- -- -- -- 11 12 -- -- -- TCHDL -- < > [...] (HCC) followed by Dr. Husam Hart in [place] PAST SURGICAL HISTORY Procedure Laterality Date ARTHRP ACETBLR/PROX FEM PROSTC AGRFT/ALGRFT Right 03/20/2019 Hip replacement, total ARTHRP KNE CONDYLE&PLATU MEDIAL&LAT COMPARTMENTS Left 02/2016 BIOPSY BREAST OPEN INCISIONAL Left 2007 [facility] benign pathology per patient BREAST RECONSTRUCTION Left [...] tablet by mouth at bedtime as needed. mycujooUCH ULTRA PLUS TEST strp 1 Each two times a day. E11.65; No insulin Lancets Use with blood glucose test two times a day. Insulin Dep? No blood sugar diagnostic (BLOOD GLUCOSE TEST) test strip Use with blood glucose test two times a day.Insulin Dep? No aspirin, enteric coated (ASPIRIN, ENTERIC [...] BP Cuff Size: Regular Adult) Pulse 84 Resp17 Ht 166.4 cm (5' 5.5) Wt 81.9 [...] changes at this time Recommend see ENDO PROBE OPERATOR, patient is interested ENDOCRINOLOGY PROBE OPERATOR ORDER placed for patient Recommended diet: Low [...] A1C Daisy Titus CNP documented in this encounterNationwide Children'S Hospital07-08-2025 History of Present illness Narrative* Lisbet Pizano APRN.CNP - 10/13/2024 3:05 PM EDT SUBJECTIVE Pat Sorto is a 64 year old female here today for acute concern. Chief Complaint Patient presents with: Edema HPI Pat Sorto is a 64-year-old female with a history of lymphedema and recurrent UTIs, presentingwith concerns about worsening lymphedema and a persistent [...] tablet by mouth at bedtime as needed. mycujooUCH ULTRA PLUS TEST strp 1 Each two times a day. E11.65; No insulin Lancets Use with blood glucose test two times a day. Insulin Dep? No blood sugar diagnostic (BLOOD GLUCOSE TEST) test strip Use with blood glucose test two times a day.Insulin Dep? No aspirin, enteric coated (ASPIRIN, ENTERIC [...] arms trunk neck face, itching Chills Tolerates [facility] ACTIVE PROBLEM LIST Gastroesophageal Reflux Disease - 05/04/2024 Type 2 Diabetes Mellitus Without Complication, With Long-Term Current Use of Insulin (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) - 08/16/2022 Class 1 Obesity Due [...] Comment: Added automatically from request for surgery [id number] Stomatitis and Mucositis - 06/28/2017 Antineoplastic Chemotherapy [...] improvement, consider follow-up next week. Recording using Chatwala software for draft documentation of the visit was discussed with the patient/authorized senior customer service representative; all questions welcomed and answered. Patient/authorized senior customer service representative agreed to proceed Portions of this [...] from today's visit and in agreement with treatmentplan. Questions answered. Agrees to call the office [...] as well as compliance with taking medications. Age- appropriate health preventative measures were discussed. Return in 10 days (on 10/23/2024), or if symptoms worsen or fail to improve, for Keep next scheduledappointment.. Lisbet Pizano APRN-SONIDO documented in this encounterNationwide Children'S Hospital07-08-2025 Telephone encounter Note * Telephone Encounter - Cathy Burr APRN.CNS - 10/13/2024 12:58 PM EDT E. coli numbers are reduced from previous. If she wants to be checked for arm infection would recommend a visit. Would not expect a UTI to cause an arm infection. Has OV today, can discuss at OV. [facility]07-08-[facility] Miscellaneous Notes* Telephone Encounter - Cathy Burr APRN.CNS - 10/13/2024 12:58 PM EDT E. coli numbers are reduced from previous. If she wants to be checked for arm infection would recommend a visit. Would not expect a UTI to cause an arm infection. Has OV today, can discuss at OV. * Telephone Encounter - Serenity Vilchis RN - 10/12/2024 4:53 PM EDT Pt called and is notified of providers results and instructions. Pt voices understanding. Pt statesshe finished her antibiotics. She states the only symptom she has is a little tingling when urinating. She states the test came back with he highest level of e coli yet. She states she has lymphedemain her L arm, and the PT person was asking if may the provider though she could have an infection in it, because it is kind of warm. Pt denies running a fever or any nred streaks. She states the arm is pinkish, but she does wear a compression sleeve on it, but not all the times. Pt still reports tohaving the fatigue which she had with the UTI. I ask the Pt if she had an open wounds on that arm or hand and she denied any, and she reports to using good hand hygiene. She was asking if the e coli could have gotten into her arm with the lymphedema. Please call and advise. Serenity Vilchis RN * Telephone Encounter - Cathy Burr APRN.CNS - 10/12/2024 4:32 PM EDT Labs look like she is not getting [...] 1.06 (H) 0.58 - 0.96 mg/dL Final * Telephone Encounter - Karyn Truong RN - 10/12/2024 1:48 PM EDT Patient calls and states that she had urinalysis and blood work done last week. Patient is asking about the results. Latest Ref Rng 10/07/2024 Color Yellow Yellow Clarity Clear Clear Glucose, Urine Negative Negative Bilirubin, Urine Negative Negative Ketones, Urine Negative Negative Specific [place], Ur 1.005 - 1.030 1.017 Hemoglobin/Blood,Ur Negative [...] >=60 mL/min/1.73m 30 (L) documented in this encounterNationwide Children'S Hospital07-08-2025 History of Present illness Narrative* Neo Jackson PTA - 10/13/2024 10:26 AM EDT Program_ID:[id number] Access Code: [email or web address] URL: [email or web address] Date: 10-13-2024 Prepared By: Bobbi Vanegas Program [...] weekly - 1 sets - 3 reps * Noe Jackson PTA - 10/13/2024 9:38 AM EDT Episode Visit Count: 6 Therapist That Will [...] well as concern for infection. Her UE isnot warm to the touch by clinician although patient notes her arm feeling warm. Did not perform MLDthis date due to concern for infection. Pt [...] hard. Has been warm for about a week.Had a UTI that developed into E coli and has been on antibiotics. Is wondering if the infection hasspread to her arm. Pain: Pain Pain Location: [...] Program Assigned: 1: Access Code: [email or web address] URL: [email or web address] Date: 10/13/2024 Prepared by: SHIRLEY Pablo Exercises - Supine Chest Stretch with Elbows [...] Stretch at 90 Degrees Abduction - 1 xdaily - 7 x weekly - 1 sets [...] 1025 Noe Jackson PTA documented in this encounterNationwide Children'S Hospital07-08-2025 NoteHNO ID: [id number] Author: NOE JACKSON PTA Service: ? Author Type: Supervisor Transferring And Boxing Type: Progress Notes Filed: 10/13/2024 11:17 Note [...] Program Assigned: 1: Access Code: [email or web address] URL: [email or web address] Date: 10/13/2024 Prepared by: PT Juan Carlos Pablo Exercises - Supine Chest Stretch with Elbows [...] 940 Session Stop Time : 102 Noe JacksonSam[facility]07-07-2025 Telephone encounter Note* Telephone Encounter - Serenity Vilchis RN - 10/12/2024 4:53 PM EDT Pt called and is notified of providers results and instructions. Pt voices understanding. Pt statesshe finished her antibiotics. She states the only symptom she has is a little tingling when urinating. She states the test came back with he highest level of e coli yet. She states she has lymphedemain her L arm, and the PT person was asking if may the provider though she could have an infection in it, because it is kind of warm. Pt denies running a fever or any nred streaks. She states the arm is pinkish, but she does wear a compression sleeve on it, but not all the times. Pt still reports tohaving the fatigue which she had with the UTI. I ask the Pt if she had an open wounds on that arm or hand and she denied any, and she reports to using good hand hygiene. She was asking if the e coli could have gotten into her arm with the lymphedema. Please call and advise. Serenity Vilchis RN [facility]07-07-[facility] Telephone encounter Note* Telephone Encounter - Cathy Burr APRN.CNS - 10/12/2024 4:32 PM EDT Labs look like she is not getting [...] 1.06 (H) 0.58 - 0.96 mg/dL Final [facility]07-07-20[facility] Telephone encounter Note* Telephone Encounter - Karyn Truong RN - 10/12/2024 1:48 PM EDT Patient calls and states that she had urinalysis and blood work done last week. Patient is asking about the results. Latest Ref Rng 10/07/2024 Color Yellow Yellow Clarity Clear Clear Glucose, Urine Negative Negative Bilirubin, Urine Negative Negative Ketones, Urine Negative Negative Specific [place], Ur 1.005 - 1.030 1.017 Hemoglobin/Blood,Ur Negative [...] mmol/L 12 eGFR >=60 mL/min/1.73m 30 (L) [facility]07-[facility]25 NoteHNO ID: [id number] Author: MILAGROS BROWN, PT Service: ? Author [...] Patient to be seen for Therapeutic exercise (82724), Manual therapy (48255), Self-halfway management (03797), Patient/Family/Caregiver Education, Therapeutic activities (95955) (lymphedema program) PLAN FOR NEXT VISIT: lymphedema program SUBJECTIVE: Feels like it is getting worse - more tender, more swelling, reddened along inside of left arm. Pain 5/10. Decrease can top setter, difficult to grab things due to swelling. [...] Radiation, Lymph Node Remova (more content not included)...[facility]07-07-2025 History of Present illness Narrative* Milagros Brown, PT - 10/12/2024 7:13 AM EDT Images from the original note [...] Patient to be seen for Therapeutic exercise (88116), Manual therapy (35188), Self-halfway management (14928), Patient/Family/Caregiver Education, Therapeutic activities (86821) (lymphedema program) PLAN FOR NEXT VISIT: lymphedema program SUBJECTIVE: Feels like it is getting worse - more tender, more swelling, reddened along inside of left arm. Pain 5/10. Decrease can top setter, difficult to grab things due to swelling. [...] 1100 Milagros Brown PT documented in this encounterNationwide Children'S Hospital07-02-2025 History of Present illness Narrative* Tatianan Crook, [facility] - 10/07/2024 3:30 PM EDT Primary Care Pharmacy Visit CC (Reason for Consult): (E11.9) Type 2 diabetes mellitus without complication, unspecified whetherlong term insulin use (HCC) (primary encounter diagnosis) Goal(s): [...] better. Was walking a lot while in [place] Reports symptoms of hyperglycemia has improved, not [...] with blood glucose test two times a day.Insulin Dep? No 200 Each 3 aspirin, enteric [...] 2 diabetes mellitus without complication, unspecified whether jail insulin use (HCC) -ICD9: 250.00, ICD10: E11.9 - Improving control - [...] 03/23/25 Next PharmD visit: 11/13/24 Tatianna Crook, BipinD, BCACP Primary Care Clinical Planer Hand documented in this encounterNationwide Children'S Hospital07-01-2025 Telephone encounter Note * Telephone Encounter - Una Sawant - 10/06/2024 8:51 AM EDT Faxed and scanned [facility] Miscellaneous Notes* Telephone Encounter - Una Sawant - 10/06/2024 8:51 AM EDT Faxed and scanned * Telephone Encounter - Una Sawant - 10/06/2024 8:50 AM EDT Images from the original note were not included. Katie Carter RN You15 hours ago (5:11 PM) BIRDIE Yes, okay to sign * Telephone Encounter - Una Sawant - 10/05/2024 3:30 PM EDT Received an order from [employer], scanned into chart. OK to sign? documented in this encounterNationwide Children'S Hospital07-01-2025 Telephone encounter Note * Telephone Encounter - Una Sawant - 10/06/2024 8:50 AM EDT Images from the original note were not included. Katie Carter RN You15 hours ago (5:11 PM) BIRDIE Yes, okay to sign [facility]-30[facility] Telephone encounter Note* Telephone Encounter - Jacinta Rivas MD - 10/05/2024 10:20 PM EDT See MyChart reply [facility]-30-[facility] Miscellaneous Notes* Telephone Encounter - Jacinta Rivas MD - 10/05/2024 10:20 PM EDT See MyChart reply documented in this encounterNationwide Children'S Hospital06-30-2025 Telephone encounter Note * Telephone Encounter - Una Sawant - 10/05/2024 3:30 PM EDT Received an order from [employer], scanned into chart. OK to sign? [facility] Telephone encounter Note* Telephone Encounter - Serenity Vilchis RN - 09/25/2024 11:57 AM EDT Pt called back in and was asking if the e coli could be spread to other people since she will be going on vacation. I told her I don't believe it can be, but she needs to make sure to use good hygiene practices like wiping from front to back. Please send a [employer] message to Pt with reply. Serenity Vilchis RN [facility]06-20-2025 Miscellaneous Notes* Telephone Encounter - Serenity Vilchis RN - 09/25/2024 11:57 AM EDT Pt called back in and was asking if the e coli could be spread to other people since she will be going on vacation. I told her I don't believe it can be, but she needs to make sure to use good hygiene practices like wiping from front to back. Please send a [employer] message to Pt with reply. Serenity Vilchis RN * Telephone Encounter - Serenity Vilchis RN - 09/25/2024 11:51 AM EDT Pt called and is notified of providers message and instructions. Pt voices understanding. She states she will be leaving tomorrow for a week in [place]. Serenity Vilchis RN * Telephone Encounter - Cathy Burr APRN.CNS - 09/25/2024 11:29 AM EDT Please let her know we would like [...] with Jacinta Rivas MD documented in this encounterNationwide Children'S Hospital06-20-2025 Telephone encounter Note * Telephone Encounter - Serenity Vilchis RN - 09/25/2024 11:51 AM EDT Pt called and is notified of providers message and instructions. Pt voices understanding. She states she will be leaving tomorrow for a week in [place]. Serenity Vilchis RN [facility]06-20-[facility] Telephone encounter Note* Telephone Encounter - Cathy Burr APRN.CNS - 09/25/2024 11:29 AM EDT Please let her know we would like to switch her antibiotic to cefuroxime 500 mg once daily. Would recommend starting that today. Continue to push fluids. Keep appointment with nephrology. Would recommend recheck of urinalysis and metabolic panel for clearing of infection and renal function in 2-3 weeks. If considering travel would base on how she is feeling. Reviewed with Jacinta Rivas MD [facility]06-[facility] Telephone encounter Note* Telephone Encounter - Svetlana Kong LPN - 09/24/2024 2:00 PM EDT I got patient scheduled with Dr. Annabel Carter on 10/28/2024 @ 11:00. Patient is aware and will arrive at 10:45. Referral faxed. Svetlana Kong LPN [facility]06-19-20[facility] Miscellaneous Notes* Telephone Encounter - Svetlana Kong LPN - 09/24/2024 2:00 PM EDT I got patient scheduled with Dr. Annabel Carter on 10/28/2024 @ 11:00. Patient is aware and will arrive at 10:45. Referral faxed. Svetlana Kong LPN * Telephone Encounter - Svetlana Kong LPN - 09/24/2024 1:24 PM EDT Nel Day placed a referral to nephrology yesterday. Svetlana Kong LPN * Telephone Encounter - Morenita Boyd - 09/24/2024 12:44 PM EDT Patient calling in stating Dr. Carrasco would like her to see Nephrology for abnormal kidney labs. If appropriate, please place order. Patient is currently scheduled for [facility] [place]. Patient was concerned she needs to be seen sooner than this. Please review and advise. Morenita Boyd September 24, 2024 12:46 PM documented in this encounterNationwide Children'S Hospital06-19-2025 Telephone encounter Note * Telephone Encounter - Svetlana Kong LPN - 09/24/2024 1:24 PM EDT Nel Day placed a referral to nephrology yesterday. Svetlana Kong LPN [facility] Telephone encounter Note* Telephone Encounter - Morenita Boyd - 09/24/2024 12:44 PM EDT Patient calling in stating Dr. Carrasco would like her to see Nephrology for abnormal kidney labs. If appropriate, please place order. Patient is currently scheduled for first available within the [facility] November 17 in [place]. Patient was concerned she needs to be seen sooner than this. Please review and advise. Morenita Boyd September 24, 2024 12:46 PM [facility]-19-[facility] Telephone encounter Note* Telephone Encounter - Karyn Truong RN - 09/24/2024 12:29 PM EDT Patient notified of results and provider's instructions. Please let the patient know the ultrasound of her kidneys was normal. Culture results still pending. Dr. Carrasco recommends referral to nephrology LANE, please assist patient in scheduling or fax consult order if she prefers to stay local Nel Day APRN.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 Patient verbalizes understanding. Karyn Truong RN [facility]06-19-[facility]25 Miscellaneous Notes* Telephone Encounter - Karyn Truong RN - 09/24/2024 12:29 PM EDT Patient notified of results and provider's instructions. Please let the patient know the ultrasound of her kidneys was normal. Culture results still pending. Dr. Carrasco recommends referral to nephrology LANE, please assist patient in scheduling or fax consult order if she prefers to stay local Nel Day APRN.SONIDO Patient verbalizes understanding. Karyn Truong RN documented in this encounterNationwide Children'S Hospital06-19-2025 NoteHNO ID: [id number] Author: NOE JACKSON PTA Service: ? Author Type: Supervisor Transferring And Boxing Type: Progress Notes Filed: 09/24/2024 12:41 Note [...] Session Stop Time : 1030 Noe Jackson [facility]06-19-2025 History of Present illness Narrative* Noe JacksonCLIFF - 09/24/2024 9:45 AM EDT Episode Visit Count: 4 Therapist That Will [...] will continue to benefit from ongoing skilled physicaltherapy for reassessment by supervising therapist. PLAN FOR [...] anterior/posterior forearm -- L wrist/hand --fingers -- followup 2: Fit with isotoner glove size medium [...] Time (minutes): 45 Session Start Time : 944 Session Stop Time : 1030 Noe Jackson PTA documented in this encounterNationwide Children'S Hospital06-18-2025 History of Present illness Narrative* Tye Negron TECHNOLOGIST - 09/23/2024 4:00 PM EDT Radiology Service Progress Note PATIENT [...] Assigned female at . status: : No status:NO. PATIENT RELEVANT IMPLANT DATA REVIEWED: Yes PATIENT PRESENTS WITH AN IMPLANTABLE OR ATTACHED ELECTRIC MOTOR ASSEMBLER AND TESTER: No RADIOLOGY DEPARTMENT: Ultrasound PERIPHERAL IV DATA: Not applicable SIGNED BY: TECHNOLOGIST Brayden September 23, 2024 4:17 PM documented in this encounterNationwide Children'S Hospital06-18-2025 NoteHNO ID: [id number] Author: TYE NEGRON TECHNOLOGIST Service: ? Author [...] PATIENT PRESENTS WITH AN IMPLANTABLE OR ATTACHED ELECTRIC MOTOR ASSEMBLER AND TESTER: No RADIOLOGY DEPARTMENT: Ultrasound PERIPHERAL IV DATA: Not applicable SIGNED BY: Tye Negron TECHNOLOGIST September 23, 2024 4:17 [facility]06-17-[facility] History of Present illness Narrative* Nel Day, 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.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 - 09/22/2024 2:33 PM EDT CC: Patient presents with: Recheck: UTI HPI Recording using Chatwala software for draft documentation of the visit was discussed with the patient/authorized senior customer service representative; all questions welcomed and answered. Patient/authorized senior customer service representative agreed to proceed Pat Sorto is [...] emesis. Pat is scheduled to travel to [place] on Saturday and expressesa desire to ensure her UTI is resolved before her trip. Pat has a history of diabetes mellitus and reports that her blood glucose levels have been runninghigh. She attributes this to her cancer medication, [...] (HCC) followed by Dr. Husam Hart in [place] PAST SURGICAL HISTORY Procedure Laterality Date ARTHRP ACETBLR/PROX FEM PROSTC AGRFT/ALGRFT Right 03/20/2019 Hip replacement, total ARTHRP KNE CONDYLE&PLATU MEDIAL&LAT COMPARTMENTS Left 02/2016 BIOPSY BREAST OPEN INCISIONAL Left 2007 [facility] benign pathology per patient BREAST RECONSTRUCTION Left [...] with blood glucose test two times a day.Insulin Dep? No aspirin, enteric coated (ASPIRIN, ENTERIC [...] despite treatment with Macrobid. Initial urine dip on09/07 showed large hematuria and proteinuria. Current urine [...] Renal insufficiency (N28.9) Previous lab work on 09/01 showed worsening kidney function - Ordered repeat [...] Patient agreeable to treatment plan. Nel Day APRN.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 documented in this encounterNationwide Children'S Hospital06-17-2025 Telephone encounter Note * Telephone Encounter - Charlie Dupree RN - 09/22/2024 12:51 PM EDT Pt reports she has been on 2 [...] cloudy. Scheduled same day appt with Nel. [facility] Miscellaneous Notes* Telephone Encounter - Charlie Dupree RN - 09/22/2024 12:51 PM EDT Pt reports she has been on 2 [...] day appt with Nel. documented in this encounterNationwide Children'S Hospital06-17-2025 NoteHNO ID: [id number] Author: NOE JACKSON PTA Service: ? Author Type: Supervisor Transferring And Boxing Type: Progress Notes Filed: 09/22/2024 11:38 Note [...] 1028 Session Stop Time : 1113 [facility] History of Present illness Narrative* Noe Jackson [facility] - 09/22/2024 10:26 AM EDT Episode Visit Count: 3 Therapist That Will [...] anterior/posterior forearm -- L wrist/hand --fingers -- followup Skilled Intervention: Manual skills to improve joint mobility, ROM, and decrease pain. Utilized anatomy knowledge of the clinician, and assessment of patient's response to intervention. Self-Fdc Management: 1: Discussion and recommendation on potentially purchasing tight winter glove to wear on her week to assist with hand swelling in [...] 1113 Noe Jackson PTA documented in this encounterNationwide Children'S Hospital06-06-2025 NoteHNO ID: [id number] Author: NOE JACKSON PTA Service: ? Author Type: Supervisor Transferring And Boxing Type: Progress Notes Filed: 09/11/2024 11:52 Note [...] 5 for comfort arm sleeve made by [employer]. Measuring in size 3 of the harmony [...] 0900 Session Stop Time : 0950 [facility]06-[facility] History of Present illness Narrative* Noe Jackson, [facility] - 09/11/2024 8:58 AM EDT Episode Visit Count: 2 Therapist That Will [...] and glove to decongest L limb at 20- 30mmHg. We will await updated order/prescription from referring physician prior to submitting for the order. The patient will continueto benefit from ongoing skilled physical therapy to [...] 5 for comfort arm sleeve made by [employer]. Measuring in size 3 of the harmony Medi glove with fingers. TREATMENT: Manual Therapy: 1: Demo and pt performance of self-MLD; discussion regarding proper hand technique, proper drainagepattern and direction and hand placement (provided with [...] 0950 Noe Jackson PTA documented in this encounterNationwide Children'S Hospital06-05-2025 Telephone encounter Note * Telephone Encounter - Quattrocchi, Sulma, COUTURIERE - 09/10/2024 1:10 PM EDT Patient returned call and went over results, notes from Cathy Burr ROPE TOW OPERATOR with understanding. Aware rx sent to the pharmacy. [facility]06-[facility] Miscellaneous Notes* Telephone Encounter - Sulma Nettles LPN - 09/10/2024 1:10 PM EDT Patient returned call and went over results, notes from Cathy Burr ROPE TOW OPERATOR with understanding. Aware rx sent to the pharmacy. * Telephone Encounter - Sulma Nettles LPN - 09/10/2024 1:00 PM EDT Phoned patient left message to return call and ask to speak to a nurse. * Telephone Encounter - Sulma Nettles LPN - 09/10/2024 12:59 PM EDT ----- Message from Cathy Hopson APRN.CNS sent at 09/10/2024 11:16 AM EDT ----- E. coli bacteria present, culture shows resistance to ciprofloxacin and Bactrim. If still having symptoms would recommend switching to Macrobid. Will send in a prescription for her today to [facility]. * Result Encounter Note - Cathy Burr APRN.CNS - 09/10/2024 11:16 AM EDT E. coli bacteria present, culture shows resistance to ciprofloxacin and Bactrim. If still having symptoms would recommend switching to Macrobid. Will send in a prescription for her today to [facility]. documented in this encounterNationwide Children'S Hospital06-05-2025 Telephone encounter Note * Telephone Encounter - Sulma Nettles LPN - 09/10/2024 1:00 PM EDT Phoned patient left message to return call and ask to speak to a nurse. [facility] Telephone encounter Note* Telephone Encounter - Sulma Nettles LPN - 09/10/2024 12:59 PM EDT ----- Message from Cathy Hopson APRN.CNS sent at 09/10/2024 11:16 AM EDT ----- E. coli bacteria present, culture shows resistance to ciprofloxacin and Bactrim. If still having symptoms would recommend switching to Macrobid. Will send in a prescription for her today to [facility]. [facility]06-[facility] Progress note* Result Encounter Note - Cathy Burr APRN.CNS - 09/10/2024 11:16 AM EDT E. coli bacteria present, culture shows resistance to ciprofloxacin and Bactrim. If still having symptoms would recommend switching to Macrobid. Will send in a prescription for her today to [facility]. [facility]06-03[facility] History of Present illness Narrative* Tatianna Crook [facility] - 09/08/2024 11:00 AM EDT Primary Care Pharmacy Visit CC (Reason for Consult): (E11.9) Type 2 diabetes mellitus without complication, unspecified whetherlong term insulin use (HCC) (primary encounter diagnosis) Goal(s): [...] Rx yesterday, symptoms started a few days ago- a week ago States she would like to [...] tablet by mouth at bedtime as needed. Solar Pool TechnologiesTOUCH ULTRA PLUS TEST strp 1 Each two times a day. E11.65; No insulin 200 Each 3 Lancets Use with blood glucose test two times a day. Insulin Dep? No 200 Each 3 blood sugar diagnostic (BLOOD GLUCOSE TEST) test strip Use with blood glucose test two times a day.Insulin Dep? No 200 Each 3 aspirin, enteric [...] 2 diabetes mellitus without complication, unspecified whether jail insulin use (HCC) -ICD9: 250.00, ICD10: E11.9 - Worsening control d/t [...] Tatianna Crook, PharmD, BCACP Primary Care Clinical Planer Hand documented in this encounterNationwide Children'S Hospital06-03-2025 NoteTrinity [facility]06-02-2025 History of Present illness Narrative* Cathy Burr, FELIICA.FORM BLOCK MAKER - 09/07/2024 2:00 PM EDT SUBJECTIVE: HPI Pat Sorto is a 64 [...] past 5 days. - Upcoming travel to [place] with [id number]; wants to ensure UTI is resolved before [...] tablet by mouth at bedtime as needed. ensembli PLUS TEST strp 1 Each two times a day. E11.65; No insulin Lancets Use with blood glucose test two times a day. Insulin Dep? No blood sugar diagnostic (BLOOD GLUCOSE TEST) test strip Use with blood glucose test two times a day.Insulin Dep? No aspirin, enteric coated (ASPIRIN, ENTERIC [...] (HCC) followed by Dr. Husam Hart in [place] Social History Tobacco Use Smoking status: Never Smokeless tobacco: Never Vaping Use Vaping status: Never Used Substance Use Topics Alcohol use: Yes Comment: 2 drinks per month Drug use: No 1. UTI symptoms (R39.9) - Symptoms include dysuria, fatigue, and urinary urgency; mild abdominal discomfort noted but improving. - UA in office confirms UTI. - Prescribed Ciprofloxacin; sent prescription to [facility] pharmacy. - Advised increased fluid intake to aid in resolution. - Instructed to report if symptoms persist; will consider urine culture if no improvement. Cathy Burr APRN.CNS Medical Decision Making: Problems: Low: Acute, uncomplicated illness or injury Data: Unique test(s) ordered: 2 Risk: Moderate: Drug management Medical Decision Making Level: 3 - Low documented in this encounterNationwide Children'S Hospital06-02-2025 NoteTrinity [facility]05-29-2025 NoteHNO ID: [id number] Author: NOE PASTRANA ST Service: ? Author Type: Surg Solar Photovoltaic Designer Type: Progress Notes Filed: 09/03/2024 13:30 Note Text: DATE OF PHOTOS: 09/03/2024 Body Part: Breasts and Arms NOE RAMIREZST NGUYỄN September 03, 2024 1:30 PMCCommunity [facility]05-29-2025 History of Present illness Narrative* Noe Pastrana ST - 09/03/2024 1:30 PM EDT DATE OF PHOTOS: 09/03/2024 Body Part: Breasts and Arms NOE RAMIREZST NGUYỄN September 03, 2024 1:30 PM documented in this encounterNationwide Children'S Hospital05-29-2025 Instructions* Patient Instructions* Valery Razo RN - 09/03/2024 1:24 PM EDT For an appointment call Rehabilitation and Sports Therapy: [phone]. The call center agent will assist you in selecting the location and specialty service that will best meet your needs. Lymphedema of left upper extremity documented in this encounterNationwide Children'S Hospital05-29-2025 History of Present illness Narrative* Valery Razo RN - 09/03/2024 1:00 PM EDT Plastic Surgery Post Op Note CC: post [...] and no new redness) Has prosthetic from [employer], is not interested in any further [...] skin, excision (A) - Invasive ductal carcinoma, Warsaw grade 3, involving subcutis, dermis and epidermis (including ulceration), (see comment). 2. Left breast implant, excision and removal (B) - Amorphous acellular material. -Breast implant (gross evaluation only). 3. Left breast, inframammary fold, excision (C) - Invasive ductal carcinoma, Negro grade 3, spanning greater than 50 mm, involving capsule, subcutis, dermis and epidermis (including ulceration),(see comment). 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 Husam Hart in [place] PAST SURGICAL HISTORY Procedure Laterality Date ARTHRP ACETBLR/PROX FEM PROSTC AGRFT/ALGRFT Right 03/20/2019 Hip replacement, total ARTHRP KNE CONDYLE&PLATU MEDIAL&LAT COMPARTMENTS Left 02/2016 BIOPSY BREAST OPEN INCISIONAL Left 2007 [facility] benign pathology per patient BREAST RECONSTRUCTION Left [...] with blood glucose test two times a day.Insulin Dep? No aspirin, enteric coated (ASPIRIN, ENTERIC [...] questions or concerns during business hours call [phone] or after hours (after 5 pm or on the weekend) call [phone] and ask for the plastic surgery resident / fellow personal lines appraiser for further instructions. If you have increasing [...] Past Histories independently gathered by the clinical other sales support worker and the remaining scribed note accurately describes my personal service to the patient. I spent 20 minutes in the visit, with more than 50% of the total blva-rq-[id number] time of the visit in counseling / coordination of care. Today's Office Visit: She has significant left upper extremity lymphedema which goes to her hand and makes holding a golfclub difficult. She has not started compression yet. I discussed the importance of proper therapy. I will have her see [facility] for measurements and ICG and look to do a LVB. Micki Marcelino MD documented in this encounterNationwide Children'S Hospital05-29-2025 NoteTrinity Health [facility]05-27-2025 Progress note* Result Encounter Note - Serena Carrasco DO - 09/01/2024 1:27 PM EDT Her serum creatinine is elevated again and appears to be dehydration. Please ask her to remember tohydrate well daily. [facility]05-27-[facility] Miscellaneous Notes* Result Encounter Note - Serena Carrasco - 09/01/2024 1:27 PM EDT Her serum creatinine is elevated again and appears to be dehydration. Please ask her to remember tohydrate well daily. documented in this encounterNationwide Children'S Hospital05-26-2025 NoteHNO ID: [id number] Author: MILAGROS BROWN, PT Service: ? Author [...] Planned: 8 Planned Treatment Interventions: Therapeutic exercise (63639), Manual therapy (23913), Self-halfway management (91229), Patient/Family/Caregiver Education, Therapeutic activities (87028) (lymphedema program) PLAN FOR NEXT VISIT: lymphedema program Patient demonstrates good understanding of plan of care and treatment. The above goals and plan of care were discussed and agreed upon by patient/family. SUBJECTIVE: Diagnosed with breast cancer in 2018, mastectomy 2017, implant put in at time [...] (Left) 2008 Biopsy breast open incisional (Left) [facility] benign pathology per patient 1996,1993 delivery only , low transverse Right or Left Handed: Right Hobbies / Interests: golfing Intake Information: Prescription present Previous Treatment: Physical Therapy Falls Interview: No positive findings with falls interview Pain: Pain Pain Level: 0 Pain Location: Chest - Left Post Treatment Pa (more content not included)...[facility]05-26-2025 History of Present illness Narrative* Milagros Brown, PT - 08/31/2024 10:31 AM EDT Images from the original note [...] s/p left breast implant removal with left UElymphedema that interferes with gripping, pulling, twisting . The patient presents with impairmentsin edema management. PROMIS (Patient- Reported Outcomes Measurement Information System) scores were reviewed [...] / doffing compression garment and proper wearing scheduleand care of garment Patient / family independent [...] Planned: 8 Planned Treatment Interventions: Therapeutic exercise (48723), Manual therapy (49958), Self-halfway management (56915), Patient/Family/Caregiver Education, Therapeutic activities (07741) (lymphedema program) PLAN FOR NEXT VISIT: lymphedema program Patient demonstrates good understanding of plan of care and treatment. The above goals and plan of care were discussed and agreed upon by patient/family. SUBJECTIVE: Diagnosed with breast cancer in 2018, mastectomy 2018, implant put in at time of mastectomy. 2 moresurgeries following this then in May 2024 removed implant, scar tissue present and multiple seromas. Had reocurring cancer 2022, breast/skin. No therapy since. Had therapy in the past. Lymphedema has increased lately. Complains of twinging, pulling in left chest. On water pill but doesn't makea difference in swelling. Patient Goals: Ease swelling [...] 02/2016 Arthrp kne condyle&platu medial&lat compartments (Left) 2007 Biopsy breast open incisional (Left) [facility] benign pathology per patient 1996 delivery only , low transverse Right or [...] 1150 Milagros Brown PT documented in this encounterNationwide Children'S Hospital05-06-2025 History of Present illness Narrative* Tatianna Crook [facility] - 08/11/2024 11:00 AM EDT Primary Care Pharmacy Visit CC (Reason for Consult): (E11.9) Type 2 diabetes mellitus without complication, unspecified whetherlong term insulin use (HCC) (primary encounter diagnosis) Goal(s): A1c <8% per consult Last Collaborating Provider Visit: 06/05/24 with GIOVANNA Adamson Pat Sorto is a 64 year old female presenting for follow up visit telephone call. Patient consents to pharmacy collaborative practice agreement. Last Pharmacy Visit: 4/8/25 - Lantus increased HPI: Reports doing well [...] Fasting AM Before Dinner 2 hr PP 08/11 151 08/10 186 08/09 190 08/08 153 08/07 188 08/06 147 247 08/05 151 111 08/04 148 [...] with blood glucose test two times a day.Insulin Dep? No 200 Each 3 aspirin, enteric [...] 2 diabetes mellitus without complication, unspecified whether jail insulin use (HCC) -ICD9: 250.00, ICD10: E11.9 - Controlled per A1c; [...] Tatianna Crook, PharmD, BCACP Primary Care Clinical Planer Hand documented in this encounterNationwide Children'S Hospital05-06-2025 NoteTrinity Health [facility]05-05-2025 Telephone encounter Note* Telephone Encounter - Cristal Davidson MA - 08/10/2024 11:26 AM EDT Images from the original note were not included. Most recent Endocrinology visit: Last encounter Visit on 04/15/2024 (with Daisy Titus) 02/05/2024 in [facility] with DAISY TITUS for Poorly control type 2 diabetes mellitus (HCC) 04/15/2024 in [facility] with DAISY TITUS for Diabetes mellitus treated with insulin (HCC) Upcoming Endocrinology Appointments - Next 365 Days Visit Type Date Time Department EST ANNIE PATIENT 10/14/2024 11:45 AM [facility] Requested Prescriptions Pending Prescriptions Disp Refills DROPLET [...] the last 12 months Cristal Davidson MA [facility]05-05-2025 Miscellaneous Notes* Telephone Encounter - Cristal Davidson MA - 08/10/2024 11:26 AM EDT Images from the original note were not included. Most recent Endocrinology visit: Last encounter Visit on 04/15/2024 (with Daisy Titus) 02/05/2024 in [facility] with DAISY TITUS for Poorly control type 2 diabetes mellitus (HCC) [facility] DAISY TITUS for Diabetes mellitus treated with insulin (HCC) Upcoming Endocrinology Appointments - Next 365 Days Visit Type Date Time Department EST ANNIE PATIENT 10/14/2024 11:45 AM [facility] Requested Prescriptions Pending Prescriptions Disp Refills DROPLET [...] months Cristal Davidson MA documented in this encounterNationwide Children'S Hospital04-28-2025 Instructions* Patient Instructions* Brooke Batista RN - 08/03/2024 10:43 AM EDT Consult to breast rehab - Please call [phone] to schedule, change, cancel or confirm an [...] questions or concerns during business hours call [phone] or after hours (after 5 pm or on the weekend) call [phone] and ask for the plastic surgery resident / fellow personal lines appraiser for further instructions. If you have increasing [...] scheduled with Dr. Marcelino documented in this encounterNationwide Children'S Hospital04-28-2025 History of Present illness Narrative* Micki Butler APRN.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 - 08/03/2024 10:20 AM EDT Plastic Surgery Post Op Note CC: post [...] to last office visit Has prosthetic from [employer], is not interested in any further reconstruction Has some tightness to left upper extremity- saw bobbi at [facility] in the past Hx Radiation Therapy: Yes- completed 12/2017 Hx Chemotherapy: Yes- completed in 2018 Hx of DM, on insulin HBa1c 6.8 recently Wiund culture from 06/25/24 WOUND CULTURE No growth Smear Result No organisms seen No Polymorphonuclear Leukocytes Surgical pathology FINAL DIAGNOSIS 1. 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 2. Left breast implant, excision and removal (B) - Amorphous acellular material. -Breast implant (gross evaluation only). 3. Left breast, inframammary fold, excision (C) - Invasive ductal carcinoma, Warsaw grade 3, spanning greater than 50 mm, involving capsule, subcutis, dermis and epidermis (including ulceration),(see comment). 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 Husam Hart in [place] PAST SURGICAL HISTORY Procedure Laterality Date ARTHRP ACETBLR/PROX FEM PROSTC AGRFT/ALGRFT Right 03/20/2019 Hip replacement, total ARTHRP KNE CONDYLE&PLATU MEDIAL&LAT COMPARTMENTS Left 02/2016 BIOPSY BREAST OPEN INCISIONAL Left 2007 [facility] benign pathology per patient BREAST RECONSTRUCTION Left [...] with blood glucose test two times a day.Insulin Dep? No aspirin, enteric coated (ASPIRIN, ENTERIC [...] breast rehab [facility] questions or concerns. If experiencing wound complications or have any questions or concerns during business hours call [phone] or after hours (after 5 pm or on the weekend) call [phone] and ask for the plastic surgery resident / fellow personal lines appraiser for further instructions. If you have increasing [...] following reflects her service. Scribed by Brooke aBtista RN I agree with the Chief Complaint, ROS, and Past Histories independently gathered by the clinical other sales support worker and the remaining scribed note accurately describes my personal service to the patient. Micki Butler APRN.CNP August 03, 2024 documented in this encounterNationwide Children'S Hospital04-28-2025 NoteTrinity Health [facility]04-11-2025 Progress note* Result Encounter Note - Cathy Burr APRN.CNS - 07/17/2024 10:23 AM EDT NSR, some increased ectopy when compared to previous, remains less than 1% [facility]04-11-2025 Miscellaneous Notes* Result Encounter Note - Cathy Burr APRN.CNS - 07/17/2024 10:23 AM EDT NSR, some increased ectopy when compared to previous, remains less than 1% documented in this encounterNationwide Children'S Hospital04-09-2025 Instructions* Patient Instructions* Katie Carter RN - 07/15/2024 1:09 PM EDT Please call [phone] for Breast Rehab documented in this encounterNationwide Children'S Hospital04-09-2025 History of Present illness Narrative* Micki Butler APRN.CNP - 07/15/2024 1:00 PM EDT Plastic Surgery Post Op Note CC: post [...] course of doxycycline that was ordered at [facility]. Hx Radiation Therapy: Yes- completed 12/2017 Hx Chemotherapy: Yes- completed in 2017 Hx of DM, on insulin HBa1c 6.8 recently Wiund culture from 06/25/24 WOUND CULTURE No growth Smear Result No organisms seen No Polymorphonuclear Leukocytes Surgical pathology FINAL DIAGNOSIS 1. 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 2. Left breast implant, excision and removal (B) - Amorphous acellular material. -Breast implant (gross evaluation only). 3. Left breast, inframammary fold, excision (C) - Invasive ductal carcinoma, Negro grade 3, spanning greater than 50 mm, involving capsule, subcutis, dermis and epidermis (including ulceration),(see comment). 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 Husam Hart in [place] PAST SURGICAL HISTORY Procedure Laterality Date ARTHRP ACETBLR/PROX FEM PROSTC AGRFT/ALGRFT Right 03/20/2019 Hip replacement, total ARTHRP KNE CONDYLE&PLATU MEDIAL&LAT COMPARTMENTS Left 02/2016 BIOPSY BREAST OPEN INCISIONAL Left 2007 [facility] benign pathology per patient BREAST RECONSTRUCTION Left [...] with blood glucose test two times a day.Insulin Dep? No aspirin, enteric coated (ASPIRIN, ENTERIC [...] pain) [facility] all non-urgent questions or concerns. If experiencing wound complications or have any questions or concerns during business hours call [phone] or after hours (after 5 pm or on the weekend) call [phone] and ask for the plastic surgery resident / fellow personal lines appraiser for further instructions. If you have increasing [...] is seen and examined by Micki Butler APRN.SONIDO and the following reflects her service. Scribed by Katie Carter RN I agree with the Chief Complaint, ROS, and Past Histories independently gathered by the clinical other sales support worker and the remaining scribed note accurately describes my personal service to the patient. Micki Butler APRN.CNP July 15, 2024 documented in this encounterNationwide Children'S Hospital04-09-2025 NoteHNO ID: [id number] Author: MICKI BUTLER APRN.CNP Service: ? Author [...] course of doxycycline that was ordered at [facility]. Hx Radiation Therapy: Yes- completed 12/2017 Hx [...] fold, excision (C) - Invasive ductal carcinoma, Warsaw grade 3, spanning greater than 50 mm, [...] (HCC) followed by Dr. Husam Hart in [place] PAST SURGICAL HISTORY Procedure Laterality Date ARTHRP ACETBLR/PROX FEM PROSTC AGRFT/ALGRFT Right 03/20/2019 Hip replacement, total ARTHRP KNE CONDYLEANDPLATU MEDIALANDLAT COMPARTMENTS Left 02/2016 BIOPSY BREAST OPEN INCISIONAL Left 2007 [facility] benign pathology per patient BREAST RECONSTRUCTION Left [...] breast Safety check p (more content not included)...[facility]04-08-2025 History of Present illness Narrative* Tatianna Crook [facility] - 07/14/2024 11:00 AM EDT Primary Care Pharmacy Visit CC (Reason for Consult): (E11.9) Type 2 diabetes mellitus without complication, unspecified whetherlong term insulin use (HCC) (primary encounter diagnosis) Goal(s): A1c <8% per consult Last Collaborating Provider Visit: 06/05/24 with Cathy Burr, FORM BLOCK MAKER - metoprolol succinate started Pat Sorto is [...] to hold off today to focus more ondiabetes control at this time Current DM Medications: [...] hr PP 07/14 176 07/13 202 188 6 195 297 / 182 07/10 185 215 / 170 166 4/2 136 118 / 154 241 07/06 174 246 07/05 206 [...] tablet by mouth at bedtime as needed. Whisk (formerly Zypsee) ULTRA PLUS TEST strp 1 Each two times a day. E11.65; No insulin 200 Each 3 Lancets Use with blood glucose test two times a day. Insulin Dep? No 200 Each 3 blood sugar diagnostic (BLOOD GLUCOSE TEST) test strip Use with blood glucose test two times a day.Insulin Dep? No 200 Each 3 aspirin, enteric [...] 2 diabetes mellitus without complication, unspecified whether content assistant insulin use (HCC) -ICD9: 250.00, ICD10: E11.9 - Worsening control - [...] Next PharmD visit: 08/11/24 Elisabeth Benjamin RPh * Tatianna Crook RPh - 07/14/2024 11:00 AM EDT Patient interviewed independently by the resident. Barclay elements of history confirmed. Agree with findings and plan as outlined by the resident. My additions to the progress note are underlined. Tatianna Crook, PharmD, BCACP Primary Care Clinical Planer Hand documented in this encounterNationwide Children'S Hospital04-08-2025 [facility]Tr[facility]04-08-2025 NoteTr[facility]04-07-2025 Telephone encounter Note* Telephone Encounter - Svetlana Kong LPN - 07/13/2024 9:56 AM EDT I spoke with the patient and answered all questions. Patient to keep all appointments as scheduled. Svetlana Kong LPN [facility]04-07-2025 Miscellaneous Notes* Telephone Encounter - Svetlana Kong LPN - 07/13/2024 9:56 AM EDT I spoke with the patient and answered all questions. Patient to keep all appointments as scheduled. Svetlana Kong LPN * Telephone Encounter - Edilia Craven - 07/12/2024 2:05 PM EDT I called and spoke to Pat [...] we can let patient know Edilia Hughes * Telephone Encounter - Serena Carrasco DO - 07/10/2024 5:42 PM EDT Can let her know the ultrasound thyroid showed one nodule that stable and appears benign compared to the previous ultrasound from 2020. No further imaging needed for thyroid. documented in this encounterNationwide Children'S Hospital04-06-2025 Telephone encounter Note * Telephone Encounter - Edilia Craven - 07/12/2024 2:05 PM EDT I called and spoke to Pat [...] we can let patient know Edilia Hughes [facility]04-04-2025 Telephone encounter Note* Telephone Encounter - Serena Carrasco DO - 07/10/2024 5:42 PM EDT Can let her know the ultrasound thyroid showed one nodule that stable and appears benign compared to the previous ultrasound from 2020. No further imaging needed for thyroid. [facility]04-03-2025 [facility]Tr[facility]04-03-2025 History of Present illness Narrative* Serena Carrasco DO - 07/09/2024 9:44 AM EDT Diagnosis: 1) Breast cancer. HPI: The patient is a 64-year-old female who has a past medical history significant for hypertension and primary biliary cirrhosis. She is seen by her accounts receivable accountant approximately once a year and she has had stable findings. Most recent liver chemistries performed at [facility] on 01/10/2017 showed a total bilirubin of [...] Evidently she was on a trip to [place] about 2 1/2 years ago when she [...] greatest length). ER (clone 6F11) >95%, strong NY (clone 16/1E2) >95%, strong Her-2Neu (clone CB11) [...] Previously performed (HER2) ERBB2 Status: Previously performed Scrapper Tumor Block: Specify: B3 Residual tumor burden: Tumor bed dimension #1: 8 mm Tumor bed dimension #2: 5 mm Overall tumor cellularity 50% Percentage in situ 3% Comment: Please see [id number] for the results of estrogen and progesterone receptors and HER2 studies. 3[facility] Stopped 08/2022. Metastatic disease. Had [...] was performed [facility] block [facility] and compared to appropriate reactive controls. [...] everolimus second week April 2023. Was at [facility]. Had PET scan on 05/02. Demonstrated [...] was discussed with the patient or authorized senior customer service representative. The patient or authorized senior customer service representative has agreed to proceed with the sensitive examination. Svetlana Kong LPN chaperoned. PHYSICAL EXAM: Vitals: Blood pressure 121/86, pulse 75, temperature 36.2 C (97.2 F), resp. rate 12, weight 75.8 kg(167 lb), SpO2 99%. -appearing and in no [...] internal mammary merlyn involvement) MX stage IIIC ER/NY positive, HER2 non overexpressed invasive ductal carcinoma of the right breast. -KPS is 100%. -PET scan indicated disease left chest wall and mediastinal lymph nodes. -MRI brain negative. -Biopsy-proven disease recurrence left chest wall inferior and posterior to implant. -ER positive (99% strong staining intensity), NY positive (2% with strong staining intensity), HER22+; nonamplified by FISH testing. 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 -MRI Breast 03/28/2023 demonstrated PD and therapy was rotated to Faslodex and Afinitor. Oncology at [facility] recommended exemestane with Afinitor. -Symptomatically tolerating well. -Reviewed PET results and images. Right axillary node appears same size as it was on PET 12/30/2023.FDG avidity may be from injection side. Plan: [...] monitor blood pressures to share with her welder gas tungsten arc and PCP. Plan: -Continue follow up with [...] history. The note has been reviewed and editedand updated as necessary. Serena Carrasco DO documented in this encounterNationwide Children'S Hospital04-02-2025 History of Present illness Narrative* Carla Bose RDMS - 07/08/2024 11:30 AM EDT Radiology Service Progress Note PATIENT NAME: [...] Assigned female at . status: : No status:NO. PATIENT RELEVANT IMPLANT DATA REVIEWED: Not Applicable PATIENT PRESENTS WITH AN IMPLANTABLE OR ATTACHED ELECTRIC MOTOR ASSEMBLER AND TESTER: No RADIOLOGY DEPARTMENT: Ultrasound PERIPHERAL IV DATA: Not applicable SIGNED BY: Carla Bose RDMS RVT July 08, 2024 4:22 PM documented in this encounterNationwide Children'S Hospital04-02-2025 NoteTr[facility]04-01-2025 Telephone encounter Note* Telephone Encounter - Serena Carrasco DO - 07/07/2024 12:52 PM EDT Thank you. Filed. Serena Carrasco DO [facility]04-01-2025 Miscellaneous Notes* Telephone Encounter - Serena Carrasco DO - 07/07/2024 12:52 PM EDT Thank you. Filed. Serena Carrasco DO * Telephone Encounter - Kasie Lamb LPN - 07/07/2024 12:49 PM EDT Please sign order Kasie Lamb LPN documented in this encounterNationwide Children'S Hospital04-01-2025 Telephone encounter Note * Telephone Encounter - Kasie Lamb LPN - 07/07/2024 12:49 PM EDT Please sign order Kasie Lamb LPN [facility]03-31-2025 Instructions* Patient Instructions* Brooke Batista RN - 07/06/2024 2:02 PM [...] questions or concerns during business hours call [phone] or after hours (after 5 pm or on the weekend) call [phone] and ask for the plastic surgery resident / fellow personal lines appraiser for further instructions. If you have increasing [...] breathe or difficulty breathing documented in this encounterNationwide Children'S Hospital03-31-2025 History of Present illness Narrative* Micki Butler APRN.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 - 07/06/2024 10:20 AM EDT Plastic Surgery Post Op Note CC: post [...] skin, excision (A) - Invasive ductal carcinoma, Warsaw grade 3, involving subcutis, dermis and epidermis (including ulceration), (see comment). 2. Left breast implant, excision and removal (B) - Amorphous acellular material. -Breast implant (gross evaluation only). 3. Left breast, inframammary fold, excision (C) - Invasive ductal carcinoma, Negro grade 3, spanning greater than 50 mm, involving capsule, subcutis, dermis and epidermis (including ulceration),(see comment). 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 Husam Hart in [place] PAST SURGICAL HISTORY Procedure Laterality Date ARTHRP ACETBLR/PROX FEM PROSTC AGRFT/ALGRFT Right 03/20/2019 Hip replacement, total ARTHRP KNE CONDYLE&PLATU MEDIAL&LAT COMPARTMENTS Left 02/2016 BIOPSY BREAST OPEN INCISIONAL Left 2007 [facility] benign pathology per patient BREAST RECONSTRUCTION Left [...] tablet by mouth at bedtime as needed. Solar Pool TechnologiesTOUCH ULTRA PLUS TEST strp 1 Each two times a day. E11.65; No insulin Lancets Use with blood glucose test two times a day. Insulin Dep? No blood sugar diagnostic (BLOOD GLUCOSE TEST) test strip Use with blood glucose test two times a day.Insulin Dep? No aspirin, enteric coated (ASPIRIN, ENTERIC [...] not improve- she will keep us updated oncondition in the interim Continue compression bra to [...] questions or concerns during business hours call [phone] or after hours (after 5 pm or on the weekend) call [phone] and ask for the plastic surgery resident / fellow personal lines appraiser for further instructions. If you have increasing [...] with more than 50% of the total reva-nv-[id number] time of the visit in counseling / coordination of care. I agree with the Chief Complaint, ROS, and Past Histories independently gathered by the clinical other sales support worker and the remaining scribed note accurately describes my personal service to the patient. Micki Butler APRN.CNP July 06, 2024 documented in this encounterNationwide Children'S Hospital03-31-2025 NoteTr[facility]03-31-2025 Telephone encounter Note* Telephone Encounter - Edilia Craven - 07/06/2024 9:31 AM EDT I called and spoke to Pat and scheduled her for the below ordered ultrasound for this Saturday07/08/24 @ 11:30 am, she confirmed this date and time Edilia Hughes [facility]03-31-2025 Miscellaneous Notes* Telephone Encounter - Edilia Craven - 07/06/2024 9:31 AM EDT I called and spoke to Pat and scheduled her for the below ordered ultrasound for this Saturday07/08/24 @ 11:30 am, she confirmed this date and time Edilia Hughes * Telephone Encounter - Serena Carrasco DO - 07/03/2024 5:09 PM EDT US thyroid when able. Serena Carrasco DO documented in this encounterNationwide Children'S Hospital03-28-2025 Telephone encounter Note * Telephone Encounter - Serena Carrasco DO - 07/03/2024 5:09 PM EDT US thyroid when able. Serena Carrasco DO [facility]03-25-2025 History of Present illness Narrative* Myla Do RT(R) - 06/30/2024 10:00 AM EDT RADIOLOGY SERVICE PROGRESS NOTE SERVICE DATE: 06/30/2024 [...] PATIENT PRESENTS WITH AN IMPLANTABLE OR ATTACHED ELECTRIC MOTOR ASSEMBLER AND TESTER: No CREATININE: Creatinine Date Value Ref Range [...] radiation safety can be found usingthis link: [email or web address]%20Medicine%[email or web address] SIGNATURE: PATRICIA Ying) PATIENT NAME: Pat Sorto DATE: June 30, 2024 TIME: 10:25 AM PAGER/CONTACT #: documented in this encounterNationwide Children'S Hospital03-25-2025 NoteHNO ID: [id number] Author: MYLA DO RT (R) Service: Nuclear [...] PATIENT PRESENTS WITH AN IMPLANTABLE OR ATTACHED ELECTRIC MOTOR ASSEMBLER AND TESTER: No CREATININE: Creatinine Date Value Ref Range [...] 1002 PATIENT DISCHARGED TO: Ambulatory patient, left PR department area. Is this a therapy: No A Diagnostic radioactive procedure has taken place, with no further precautions necessary other than routine body substance precautions. More information regarding radiation safety can be found using this link: [email or web address] SIGNATURE: RT Deonna(R) PATIENT NAME: Pat Sorto DATE: June 30, 2024 TIME: 10:25 AM [facility]AGER/CONTACT #:[phone] Telephone encounter Note* Telephone Encounter - Cathy Burr APRN.CNS - 06/26/2024 10:28 AM EDT ok [facility]03-21-2025 Miscellaneous Notes* Telephone Encounter - Cathy Burr APRN.GIOVANNA - 06/26/2024 10:28 AM EDT ok * Telephone Encounter - Odette Martinez LPN - 06/26/2024 10:16 AM EDT pharmacy says insurance will cover 90 day supply. Change? Last saw ROPE TOW OPERATOR 06/05/24. Next appt with pcp in Mar 2025. documented in this encounterNationwide Children'S Hospital03-21-2025 Telephone encounter Note * Telephone Encounter - Odette Martinez LPN - 06/26/2024 10:16 AM EDT pharmacy says insurance will cover 90 day supply. Change? Last saw ROPE TOW OPERATOR 06/05/24. Next appt with pcp in Mar 2025. [facility]03-19-2025 NoteTr[facility]03-19-2025 History of Present illness Narrative* Micki Marcelino MD - 06/24/2024 2:55 PM EDT Plastic Surgery Post Op Note CC: post [...] skin, excision (A) - Invasive ductal carcinoma, Warsaw grade 3, involving subcutis, dermis and epidermis (including ulceration), (see comment). 2. Left breast implant, excision and removal (B) - Amorphous acellular material. -Breast implant (gross evaluation only). 3. Left breast, inframammary fold, excision (C) - Invasive ductal carcinoma, Warsaw grade 3, spanning greater than 50 mm, involving capsule, subcutis, dermis and epidermis (including ulceration),(see comment). 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 Husam Hart in [place] PAST SURGICAL HISTORY Procedure Laterality Date ARTHRP ACETBLR/PROX FEM PROSTC AGRFT/ALGRFT Right 03/20/2019 Hip replacement, total ARTHRP KNE CONDYLE&PLATU MEDIAL&LAT COMPARTMENTS Left 02/2016 BIOPSY BREAST OPEN INCISIONAL Left 2007 [facility] benign pathology per patient BREAST RECONSTRUCTION Left [...] tablet by mouth at bedtime as needed. Solar Pool TechnologiesTOUCH ULTRA PLUS TEST strp 1 Each two times a day. E11.65; No insulin Lancets Use with blood glucose test two times a day. Insulin Dep? No blood sugar diagnostic (BLOOD GLUCOSE TEST) test strip Use with blood glucose test two times a day.Insulin Dep? No aspirin, enteric coated (ASPIRIN, ENTERIC [...] pain) [facility] for all non-urgent questions or concerns. If experiencing wound complications or have any questions or concerns during business hours call [phone] or after hours (after 5 pm or on the weekend) call [phone] and ask for the plastic surgery resident / fellow personal lines appraiser for further instructions. If you have increasing [...] with more than 50% of the total eeiz-cu-wbwi time of the visit in counseling / coordination of care. I agree with the Chief Complaint, ROS, and Past Histories independently gathered by the clinical other sales support worker and the remaining scribed note accurately describes my personal service to the patient. I aspirated 60 cc serous simple fluid from the left breast pocket. Will have her follow with Micki Butler for seroma aspirations. I discussed that once the seroma has resolved for at least 2 weeks than she can start PT and massage. Micki Marcelino MD documented in this encounterNationwide Children'S Hospital03-18-2025 Progress note* Result Encounter Note - Cathy Burr APRN.CNS - 06/23/2024 2:59 PM EDT Labs overall look good. Endorse increased hydration [facility]03-18-2025 Miscellaneous Notes* Result Encounter Note - Cathy Burr APRN.CNS - 06/23/2024 2:59 PM EDT Labs overall look good. Endorse increased hydration documented in this encounterNationwide Children'S Hospital03-14-2025 Progress note* Result Encounter Note - Cathy Burr APRN.CNS - 06/19/2024 7:29 AM EDT ZIO shows primarily sinus rhythm with rare ectopics. [facility]03-14-2025 Miscellaneous Notes* Result Encounter Note - Cathy Burr APRN.CNS - 06/19/2024 7:29 AM EDT ZIO shows primarily sinus rhythm with rare ectopics. * Result Encounter Note - Cathy Burr APRN.CNS - 06/09/2024 9:08 AM EST Preliminary result shows primarily sinus rhythm with rare ectopic beats. Awaiting final sign off / interpretation by cardiology documented in this encounterNationwide Children'S Hospital03-11-2025 History of Present illness Narrative* Tatianna Crook [facility] - 06/16/2024 10:30 AM EDT Primary Care Pharmacy Visit CC (Reason for Consult): (E11.9) Type 2 diabetes mellitus without complication, unspecified whetherlong term insulin use (HCC) (primary encounter diagnosis) (Z79.899) Medication management Goal(s): A1c <8% per consult Last Collaborating Provider Visit: 06/05/24 with GIOVANNA Adamson - metoprolol succinate started Pat Sorto is [...] Lunch 2 hr PP Bedtime 06/16 117 06/15 94 136 3/9 111 8 103 /7 94 6 103 06/10 101 / 136 73 105 / 83 06/07 105 06/06 173 244 152 06/05 141 AVG 113 131 Past medical history reviewed. ALLERGIES Allergen Reactions Amoxicillin Rash rash arms trunk neck face, itching Chills Tolerates Ancef Current Outpatient Medications Medication Sig Dispense Refill metoprolol succinate ER (TOPROL XL) 25 mg 24 hr tablet Take 1 tablet by mouth once daily. 30 [id number] spironolactone (ALDACTONE) 25 mg tablet Take 1 [...] with blood glucose test two times a day.Insulin Dep? No 200 Each 3 aspirin, enteric [...] 2 diabetes mellitus without complication, unspecified whether jail insulin use (HCC) -ICD9: 250.00, ICD10: E11.9 (primary diagnosis) - Controlled [...] 10/14/24 Next PharmD visit: 07/14/24 Tatianna Crook, Last, BCACP Primary Care Clinical Planer Hand documented in this encounterNationwide Children'S Hospital03-11-2025 NoteTr[facility]03-06-2025 NoteTr[facility]03-06-2025 History of Present illness Narrative* Mino Beard APRN.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 - 06/11/2024 11:26 AM EST Plastic Surgery Post Op Note This is a virtual visit using [employer] Zoom Video Visit. It required patient- provider interaction for the medical decision making as documented below. I have communicated my name and active licensure. The patient's identity and physical location wereverified at the time of this visit. Either the patient or their legal senior customer service representative has been informed of the risks and benefits of -- and alternatives to -- treatment through a remote evaluation andconsents to proceed with the evaluation remotely. CC: [...] fold, excision (C) - Invasive ductal carcinoma, Warsaw grade 3, spanning greater than 50 mm, involving capsule, subcutis, dermis and epidermis (including ulceration),(see comment). 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 Husam Hart in [place] PAST SURGICAL HISTORY Procedure Laterality Date ARTHRP ACETBLR/PROX FEM PROSTC AGRFT/ALGRFT Right 03/20/2019 Hip replacement, total ARTHRP KNE CONDYLE&PLATU MEDIAL&LAT COMPARTMENTS Left 02/2016 BIOPSY BREAST OPEN INCISIONAL Left 2007 [facility] benign pathology per patient BREAST RECONSTRUCTION Left [...] tablet by mouth at bedtime as needed. Solar Pool TechnologiesTOUCH ULTRA PLUS TEST strp 1 Each two times a day. E11.65; No insulin Lancets Use with blood glucose test two times a day. Insulin Dep? No blood sugar diagnostic (BLOOD GLUCOSE TEST) test strip Use with blood glucose test two times a day.Insulin Dep? No aspirin, enteric coated (ASPIRIN, ENTERIC [...] above head at 4 weeks if you drainshave all been removed and you do not have any wound healing issues. No heavy lifting/pushing/pulling greater than 10 lbs for 6 weeks after surgery. Do not perform twisting press operator such as laundry andvacuuming. Do not perform yard work. -Please wear [...] questions or concerns during business hours call [phone] or after hours (after 5 pm or on the weekend) call [phone] and ask for the plastic surgery resident / fellow personal lines appraiser for further instructions. If you have increasing [...] have been reviewed and updated where appropriate, andall reflect current assessment and medical decision making from today's encounter. documented in this encounterNationwide Children'S Hospital03-04-2025 Progress note* Result Encounter Note - Cathy Burr APRN.CNS - 06/09/2024 9:08 AM EST Preliminary result shows primarily sinus rhythm with rare ectopic beats. Awaiting final sign off / interpretation by cardiology [facility]02-28-2025 Instructions* Patient Instructions* Cathy Burr APRN.CNS - 06/05/2024 9:02 AM EST Drink about 64 ounces of fluid daily. Add metoprolol succinate 25 mg daily. Check your blood pressure once daily. Call and let us know if your blood pressure is running greater than 150/80 documented in this encounterNationwide Children'S Hospital02-28-2025 NoteTr[facility]02-28-2025 History of Present illness Narrative* Cathy Burr APRN.CNS - 06/05/2024 8:44 AM EST SUBJECTIVE: Pat Sorto is a 64 year [...] visit for hypertension. She was seen at [facility] ER 05/21/2024 for hypertensiveurgency. She reported palpitations prior to arriving to [...] readings have ranged from 137/85 -181/122, HR 86- 103 bpm since last seen. She is noting [...] this however it did not work and hashad a new one mailed out. She is [...] tablet by mouth at bedtime as needed. Solar Pool TechnologiesTOUCH ULTRA PLUS TEST strp 1 Each two times a day. E11.65; No insulin Lancets Use with blood glucose test two times a day. Insulin Dep? No blood sugar diagnostic (BLOOD GLUCOSE TEST) test strip Use with blood glucose test two times a day.Insulin Dep? No aspirin, enteric coated (ASPIRIN, ENTERIC [...] (HCC) followed by Dr. Husam Hart in [place] Social History Tobacco Use Smoking status: Never [...] approximately 4-6 weeks, she is going to [place] next week to see her daughter. Can [...] Level: 4 - Moderate documented in this encounterNationwide [facility]02-27-[facility]25 History of Present illness Narrative* Mino Beard APRN.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 - 06/04/2024 11:00 AM EST Plastic Surgery Post Op Note CC: post [...] 2-3 days d/t diarrhea Drain removed at [facility] Activity: able to participate in ADLs within [...] (HCC) followed by Dr. Husam Hart in [place] PAST SURGICAL HISTORY Procedure Laterality Date ARTHRP ACETBLR/PROX FEM PROSTC AGRFT/ALGRFT Right 03/20/2019 Hip replacement, total ARTHRP KNE CONDYLE&PLATU MEDIAL&LAT COMPARTMENTS Left 02/2016 BIOPSY BREAST OPEN INCISIONAL Left 2007 [facility] benign pathology per patient BREAST RECONSTRUCTION Left [...] with blood glucose test two times a day.Insulin Dep? No aspirin, enteric coated (ASPIRIN, ENTERIC [...] fluid A dry sterile dressing was applied, Ltaisha wrap applied to chest for compression The [...] above head at 4 weeks if you drainshave all been removed and you do not have any wound healing issues. No heavy lifting/pushing/pulling greater than 10 lbs for 6 weeks after surgery. Do not perform twisting press operator such as laundry andvacuuming. Do not perform yard work. -Please wear [...] for pain) Encouraged patient to communicate through [employer] for all non-urgent questions or concerns. If experiencing wound complications or have any questions or concerns during business hours call [phone] or after hours (after 5 pm or on the weekend) call [phone] and ask for the plastic surgery resident / fellow personal lines appraiser for further instructions. If you have increasing [...] have been reviewed and updated where appropriate, andall reflect current assessment and medical decision making from today's encounter. documented in this encounterNationwide [facility]02-27-2025 [facility] NoteTr[facility] History of Present illness Narrative* Mino Beard APRN.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 - 05/29/2024 10:46 AM EST Plastic Surgery Post Op Note CC: post [...] (HCC) followed by Dr. Husam Hart in [place] PAST SURGICAL HISTORY Procedure Laterality Date ARTHRP ACETBLR/PROX FEM PROSTC AGRFT/ALGRFT Right 03/20/2019 Hip replacement, total ARTHRP KNE CONDYLE&PLATU MEDIAL&LAT COMPARTMENTS Left 02/2016 BIOPSY BREAST OPEN INCISIONAL Left 2007 [facility] benign pathology per patient BREAST RECONSTRUCTION Left [...] tablet by mouth at bedtime as needed. mycujooUCH ULTRA PLUS TEST strp 1 Each two times a day. E11.65; No insulin Lancets Use with blood glucose test two times a day. Insulin Dep? No blood sugar diagnostic (BLOOD GLUCOSE TEST) test strip Use with blood glucose test two times a day.Insulin Dep? No aspirin, enteric coated (ASPIRIN, ENTERIC [...] above head at 4 weeks if you drainshave all been removed and you do not have any wound healing issues. No heavy lifting/pushing/pulling greater than 10 lbs for 6 weeks after surgery. Do not perform twisting press operator such as laundry andvacuuming. Do not perform yard work. -Please wear [...] for pain) Encouraged [facility] to [facility] for all non-urgent questions or concerns. If experiencing wound complications or have any questions or concerns during business hours call [phone] or after hours (after 5 pm or on the weekend) call [phone] and ask for the plastic surgery resident / fellow personal lines appraiser for further instructions. If you have increasing [...] have been reviewed and updated where appropriate, andall reflect current assessment and medical decision making from today's encounter. documented in this encounterNationwide Children'S Hospital02-19-2025 History of Present illness Narrative* Eliz Bingham MD - 05/27/2024 9:00 AM EST REASON FOR TODAY'S VISIT: Post - operative [...] epidermis (including ulceration) IMPRESSION: 2018: Stage IIIC ER/[place] positive, HER2 negative left breast cancer treated; NACT ([facility]) ; MRM/impkant; PMRT (completed Dec 2017) July 2022; biopsy (punch) proven skin met PET c/w metastatic disease (EBUS: + FNA mediastinal node) verzenio/faslodex/ribociclib on Exemestane implant eventually became contracted and painful and informed discussion held regarding explantation for symptomatic relief/improved QOL; additionally the two biopsy proven skin mets would be excisedas best as possible without impacting closure. She [...] scheduled Eliz Bingham MD documented in this encounterNationwide Children'S Hospital02-19-2025 NoteTr[facility]02-18-2025 Note* Addendum Note - Cathy Burr APRN.CNS - 05/26/2024 12:30 PM ESTAddended by: CATHY BURR on: 05/26/2024 12:30 PM Modules accepted: Orders [facility]02-18-[facility] Miscellaneous Notes* Addendum Note - Cathy Burr APRN.CNS - 05/26/2024 12:30 PM ESTAddended by: CATHY BURR on: 05/26/2024 12:30 PM Modules accepted: Orders documented in this encounterNationwide Children'S Hospital02-18-2025 Telephone encounter Note * Telephone Encounter - Nuzhat Beauchamp LPN - 05/26/2024 11:30 AM EST Attempted to contact patient but no answer. Left message that labs done after appointment today were meant to be done next week prior to appointment. Labs from today have been cancelled, please stop in next week to have labs redone. Encounter routed to provider to place lab order again for patient to complete prior to appointment. [facility]02-[facility] Miscellaneous Notes* Telephone Encounter - Nuzhat Beauchamp LPN - 05/26/2024 11:30 AM EST Attempted to contact patient but no answer. Left message that labs done after appointment today were meant to be done next week prior to appointment. Labs from today have been cancelled, please stop in next week to have labs redone. Encounter routed to provider to place lab order again for patient to complete prior to appointment. documented in this encounterNationwide Children'S Hospital02-18-2025 NoteTr[facility]02-18-2025 NoteTr[facility]02-18-2025 History of Present illness Narrative* Cathy Burr APRN.FORM BLOCK MAKER - 05/26/2024 9:40 AM EST SUBJECTIVE: Pat Sorto is a 64 year [...] visit for hypertension. She was seen at [facility] ER 05/21/2024 for hypertensiveurgency. She reported palpitations prior to arriving to [...] tablet by mouth at bedtime as needed. [employer] Pool TechnologiesTOUCH ULTRA PLUS TEST strp 1 Each two times a day. E11.65; No insulin Lancets Use with blood glucose test two times a day. Insulin Dep? No blood sugar diagnostic (BLOOD GLUCOSE TEST) test strip Use with blood glucose test two times a day.Insulin Dep? No aspirin, enteric coated (ASPIRIN, ENTERIC [...] (HCC) followed by Dr. Husam Hart in [place] Social History Tobacco Use Smoking status: Never [...] approx one week with labs Cathy Burr APRN.CNS Medical Decision Making: Problems: Moderate: 1+ chronic illnesses with change Data: Unique source(s) for external note(s) reviewed: 1 Unique test result(s) reviewed: 3+ Risk: Moderate: Drug management Medical Decision Making Level: 4 - Moderate documented in this encounterNationwide Children'S Hospital02-18-2025 NoteTr[facility]02-17-2025 NoteTr[facility]02-17-2025 History of Present illness Narrative* Mino Beard APRN.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 - 05/25/2024 1:49 PM EST Plastic Surgery Post Op Note CC: post [...] 02/2016 BIOPSY BREAST OPEN INCISIONAL Left 2007 [facility] benign pathology per patient BREAST RECONSTRUCTION Left [...] tablet by mouth at bedtime as needed. [employer] TechnologiesTOUCH ULTRA PLUS TEST strp 1 Each two times a day. E11.65; No insulin Lancets Use with blood glucose test two times a day. Insulin Dep? No blood sugar diagnostic (BLOOD GLUCOSE TEST) test strip Use with blood glucose test two times a day.Insulin Dep? No aspirin, enteric coated (ASPIRIN, ENTERIC [...] above head at 4 weeks if you drainshave all been removed and you do not have any wound healing issues. No heavy lifting/pushing/pulling greater than 10 lbs for 6 weeks after surgery. Do not perform twisting press operator such as laundry andvacuuming. Do not perform yard work. -Please wear [...] for pain) Encouraged patient to [facility] through [facility] for all non-urgent questions or concerns. If experiencing wound complications or have any questions or concerns during business hours call [phone] or after hours (after 5 pm or on the weekend) call [phone] and ask for the plastic surgery resident / fellow personal lines appraiser for further instructions. If you have increasing [...] Past Histories independently gathered by the clinical other sales support worker and the remaining scribed note accurately describes my personal service to the patient. Mino Beard APRN.CNP May 25, 2024 documented in this encounterNationwide Children'S Hospital02-13-2025 Telephone encounter Note * Telephone Encounter - Tatianna Crook RPh - 05/21/2024 4:26 PM EST See nurse triage encounter 05/21/24 [facility] Work Phone: 1(823) 832-374102-13-2025 Miscellaneous Notes* Telephone Encounter - Tatianna Crook RPh - 05/21/2024 4:26 PM EST See nurse triage encounter 05/21/24 documented in this encounterNationwide Children'S Hospital02-13-2025 Telephone encounter Note * Telephone Encounter - Jazmine Medrano RN - 05/21/2024 11:45 AM EST See triage nurse encounter [facility]02-[facility] Miscellaneous Notes* Telephone Encounter - Jazmine Medrano RN - 05/21/2024 11:45 AM EST See triage nurse encounter documented in this encounterNationwide Children'S Hospital02-13-2025 Telephone encounter Note * Telephone Encounter - Jazmine Medrano RN - 05/21/2024 11:06 AM EST See pt's MyChart msg below. Pt's BP [...] 100 AND [2] cardiac (e.g., breathing difficulty, chestpain) or neurologic symptoms (e.g., new-onset blurred or [...] 7. :n/a Protocols used: Blood Pressure - [id number] ---- Message ----- From: Pat Sorto Sent: 05/21/2024 10:36 AM EST To: Emerypatric Vikicharlie My Chart Rx Pool Subject: HBP medications Hi Dr. Rivas, I am having some side effects with the new medication Amlodipine Besylate 2.5 MG. I know it's a very small dose, but I am getting swelling and retention of water, feels like my heartbeat is pounding, trouble sleeping , getting flushed and just can't getcomfortable to lay down. I am also taking [...] Should I reach out to [facility] harrell? [facility]02-[facility] Miscellaneous Notes* Telephone Encounter - Jazmine Medrano RN - 05/21/2024 11:06 AM EST See pt's MyChart msg below. Pt's BP [...] 100 AND [2] cardiac (e.g., breathing difficulty, chestpain) or neurologic symptoms (e.g., new-onset blurred or [...] 7. :n/a Protocols used: Blood Pressure - [id number] ---- Message ----- From: Pat Sorto Sent: 05/21/2024 10:36 AM EST To: Sundeep Bravo My Chart Rx Pool Subject: HBP medications Hi Dr. Rivas, I am having some side effects with the new medication Amlodipine Besylate 2.5 MG. I know it's a very small dose, but I am getting swelling and retention of water, feels like my heartbeat is pounding, trouble sleeping , getting flushed and just can't getcomfortable to lay down. I am also taking [...] out to [employer] harrell? documented in this encounterNationwide Children'S Hospital02-12-2025 Telephone encounter Note * Telephone Encounter - Svetlana Kong LPN - 05/20/2024 4:33 PM EST Duplicate request. Svetlana Kong LPN [facility]02-12-2025 Miscellaneous Notes* Telephone Encounter - Svetlana Kong LPN - 05/20/2024 4:33 PM EST Duplicate request. Svetlana Kong LPN documented in this encounterNationwide Children'S Hospital02-11-2025 Telephone encounter Note * Telephone Encounter - Cayla Charles PA-C - 05/19/2024 11:52 AM EST Spoke to patient today as a follow-up [...] Charles PA-C May 19, 2024 .11:59 AM [facility]02-11-2025 Miscellaneous Notes* Telephone Encounter - Cayla Charles PA-C - 05/19/2024 11:52 AM EST Spoke to patient today as a follow-up [...] 19, 2024 .11:59 AM documented in this encounterNationwide Children'S Hospital02-10-2025 Surgery Surgical operation note* Brief Op Note - Cayla Charles PA-C - 05/18/2024 12:31 PM EST BRIEF OPERATIVE / PROCEDURE NOTE LOG ID: [id number] SURGERY/PROCEDURE DATE: 05/18/2024 INCISION/PROCEDURE START TIME: 11:32 AM INCISION CLOSE/PROCEDURE END TIME: SURGEON(S)/PROCEDURALIST(S) AND JAVA DEVELOPER(S): Surgeons and Role: Panel 1: * Micki Marcelino MD - Primary * Nathan Osei MD - Resident - Assisting Panel 2: * Eliz Bingham MD - Primary Physician Client Service Consultant: Cayla Charles PA-C SURGERY/PROCEDURE(S): Left WLE of skin recurrence; closure of mastectomy flap ANESTHESIA: General FINDINGS: see dictation ESTIMATED BLOOD LOSS: 0 SPECIMENS: left skin excision at 7 o'clock COMPLICATIONS: None DRAINS: Unmodified 1 15 round [place] drain CLOSURE TECHNIQUE: Primary PRE-OP/PRE-PROCEDURE DIAGNOSIS: Left breast cancer recurrence POST-OP/POST-PROCEDURE DIAGNOSIS: Same as Preop Patient was accompanied to the next level of care by a licensed practitioner from the surgical teampending completion of this brief op note (or operative note) SIGNATURE: Cayla Charles PA-C PATIENT NAME: Pat Sorto DATE: May 18, 2024 TIME: 12:31 PM [facility]02-[facility] Surgical operation note* Brief Op Note - Cayla Charles PA-C - 05/18/2024 12:31 PM EST BRIEF OPERATIVE / PROCEDURE NOTE LOG ID: [id number] SURGERY/PROCEDURE DATE: 05/18/2024 INCISION/PROCEDURE START TIME: 11:32 AM INCISION CLOSE/PROCEDURE END TIME: SURGEON(S)/PROCEDURALIST(S) AND JAVA DEVELOPER(S): Surgeons and Role: Panel 1: * Micki Marcelino MD - Primary * Nathan Osei MD - Resident - Assisting Panel 2: * Eliz Bingham MD - Primary Physician Client Service Consultant: Cayla Charles PA-C SURGERY/PROCEDURE(S): Left WLE of skin recurrence; closure of mastectomy flap ANESTHESIA: General FINDINGS: see dictation ESTIMATED BLOOD LOSS: 0 SPECIMENS: left skin excision at 7 o'clock COMPLICATIONS: None DRAINS: Unmodified 1 15 round [place] drain CLOSURE TECHNIQUE: Primary PRE-OP/PRE-PROCEDURE DIAGNOSIS: Left breast cancer recurrence POST-OP/POST-PROCEDURE DIAGNOSIS: Same as Preop Patient was accompanied to the next level of care by a licensed practitioner from the surgical teampending completion of this brief op note (or operative note) SIGNATURE: Cayla Charles PA-C PATIENT NAME: Pat Sorto DATE: May 18, 2024 TIME: 12:31 PM documented in this encounterNationwide Children'S Hospital02-10-2025 NoteTr[facility]02-10-2025 Attending History and physical note* Eliz Bingham MD - 05/18/2024 10:14 AM EST UPDATED HISTORY AND PHYSICAL EXAMINATION SERVICE DATE: 05/18/2024 SERVICE TIME: 10:14 AM PHYSICAL EXAM MUST BE COMPLETED ON ADMISSION The History and Physical (completed in the past 30 days) has been reviewed and the patient has beenexamined. The contents accurately reflect the patient's condition [...] Yes This is a virtual visit using [employer] Video Visit. It require patient- provider interaction forthe medical decision making as documented below. Reason for contact: PACC visit Accompanied by: Self Scheduled Surgery: Procedure(s) (LRB): REMOVAL IMPLANT BREAST (Left) CAPSULECTOMY BREAST IMPLANT COMPLETE INCLD REMOVAL OF ALL INTRACAPSULAR CONTENTS (Left) MASTECTOMY SIMPLE (Left) I have communicated my name and active licensure. The patient's identity and physical location wereverified at the time of this visit. Either the patient or their legal senior customer service representative has been informed of the risks and benefits of -- and alternatives to -- treatment through a remote evaluation andconsents to proceed with the evaluation remotely. ASSESSMENT: 1. Preop examination Scheduled for above procedure 2. Viral URI with cough Onset of symptoms 04/25 with nasal congestion, cough and fatigue. She took home COVID-19 test that was negative and tested negative for influenza in [facility] care. Chest x-ray was negative for [...] patient to reach out to PCP and/or welder gas tungsten arc if the readings are consistently elevated. She plans to do this Per Intersect ENTt message from patient - she states home [...] borderline abnormal global myocardial strain pattern. She rosi losartan daily. Patient is very active and asymptomatic. She denies CP, SOB, orthopnea, edema, syncope. Her most recent EF on echocardiogram 08/27/2023 was 59%. Hoop Punch And Coiler Operator note reviewed from 10/09/2023 mentions recommendations for BP optimization. Will work toensure BP is addressed (if needed) preop Cardiology [...] (HCC) followed by Dr. Husam Hart in [place] PAST SURGICAL HISTORY Procedure Laterality Date ARTHRP ACETBLR/PROX FEM PROSTC AGRFT/ALGRFT Right 03/20/2019 Hip replacement, total ARTHRP KNE CONDYLE&PLATU MEDIAL&LAT COMPARTMENTS Left 02/2016 BIOPSY BREAST OPEN INCISIONAL Left 2007 [facility] benign pathology per patient BREAST RECONSTRUCTION Left [...] mouth three times a day as needed forcough. DROPLET PEN NEEDLE 31 gauge x 3/16 1 Each two times a day. Sodium Fluoride, Dental Rinse, 0.2 % SWISH 10 ML BY MOUTH THEN SPIT ONCE WEEKLY Solar Pool TechnologiesTOUCH ULTRA PLUS TEST strp 1 Each two times a day. E11.65; No insulin losartan (COZAAR) 25 mg tablet take 1 tablet by mouth once daily (Patient not taking: Reported on 03/18/2024) Lancets Use with blood glucose test two times a day. Insulin Dep? No blood sugar diagnostic (BLOOD GLUCOSE TEST) test strip Use with blood glucose test two times a day.Insulin Dep? No ascorbic acid, vitamin C, (VITAMIN [...] fevers. Neuro: No history of TIA's, stroke, FORM BLOCK MAKER tumor, impaired sensorium, hemiplegia, paraplegia or quadraplegia. No neurological symptoms or problems. Respiratory: Positive for URI - onset of symptoms 04/25 - nasal congestion, productive cough and fatigue. COVID-19 and flu testing negative. No fever. Improving - AM cough productive green sputum thatis progressively improving, Negative for Asthma, COPD Cardiovascular: Positive for: Hypertension, history of cardiomyopathy during chemotherapy 2017, Negative for Recent [place], Angina, CAD, Chest Pain, Valvular Heart Disease, DVT/PE GI: Positive for GERD, PBC, Negative for Nausea, Vomiting, Abdominal pain, Hepatitis, Pancreatitis : No history of dysuria, frequency or incontinence,, stones or chronic kidney disease PATIENT SAFETY SITTER: Negative for abnormal vaginal bleeding, abnormal vaginal [...] internal mammary merlyn involvement) MX stage IIIC ER/[place] positive, HER2 non overexpressed invasive ductal carcinoma of the right breast. -KPS is 100%. -PET scan indicated disease left chest wall and mediastinal lymph nodes. -MRI brain negative. -Biopsy-proven disease recurrence left chest wall inferior and posterior to implant. -ER positive (99% strong staining intensity), [place] positive (2% with strong staining intensity), HER22+; nonamplified by FISH testing. 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 -MRI Breast 03/28/2023 demonstrated PD and therapy was rotated to Faslodex and Afinitor. Oncology at [facility] recommended exemestane with Afinitor. -Symptomatically tolerating [...] breast skin lesion. Hopefully can be excised withupcoming surgery. 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 Plan: -Continue Cozaar and follow-up [...] which included preparing to see the patient, [id number] patient care, completing clinical documentation, obtaining and/or reviewing separately obtained history, performing a medically appropriate examination, counseling and educating the pat ient/family/caregiver, communicating with other HCPs (not separately reported), [...] DATE: 05/04/2024 TIME: 11:10 AM PAGER/CONTACT #: [facility] Work Phone: 1(968) 118-162102-10-2025 History and physical note* Eliz Bingham MD - 05/18/2024 10:14 AM EST UPDATED HISTORY AND PHYSICAL EXAMINATION SERVICE DATE: 05/18/2024 SERVICE TIME: 10:14 AM PHYSICAL EXAM MUST BE COMPLETED ON ADMISSION The History and Physical (completed in the past 30 days) has been reviewed and the patient has beenexamined. The contents accurately reflect the patient's condition [...] Yes This is a virtual visit using MyChart Zoom Video Visit. It require patient- provider interaction forthe medical decision making as documented below. Reason for contact: PACC visit Accompanied by: Self Scheduled Surgery: Procedure(s) (LRB): REMOVAL IMPLANT BREAST (Left) CAPSULECTOMY BREAST IMPLANT COMPLETE INCLD REMOVAL OF ALL INTRACAPSULAR CONTENTS (Left) MASTECTOMY SIMPLE (Left) I have communicated my name and active licensure. The patient's identity and physical location wereverified at the time of this visit. Either the patient or their legal senior customer service representative has been informed of the risks and benefits of -- and alternatives to -- treatment through a remote evaluation andconsents to proceed with the evaluation remotely. ASSESSMENT: 1. Preop examination Scheduled for above procedure 2. Viral URI with cough Onset of symptoms 04/25 with nasal congestion, cough and fatigue. She took home COVID-19 test that was negative and tested negative for influenza in [facility] care. Chest x-ray was negative for [...] patient to reach out to PCP and/or welder gas tungsten arc if the readings are consistently elevated. She plans to do this Per Intersect ENTt message from patient - she states home [...] borderline abnormal global myocardial strain pattern. She rosi losartan daily. Patient is very active and asymptomatic. She denies CP, SOB, orthopnea, edema, syncope. Her most recent EF on echocardiogram 08/27/2023 was 59%. Hoop Punch And Coiler Operator note reviewed from 10/09/2023 mentions recommendations for BP optimization. Will work toensure BP is addressed (if needed) preop Cardiology [...] (HCC) followed by Dr. Husam Hart in [place] PAST SURGICAL HISTORY Procedure Laterality Date ARTHRP ACETBLR/PROX FEM PROSTC AGRFT/ALGRFT Right 03/20/2019 Hip replacement, total ARTHRP KNE CONDYLE&PLATU MEDIAL&LAT COMPARTMENTS Left 02/2016 BIOPSY BREAST OPEN INCISIONAL Left 2007 [facility] benign pathology per patient BREAST RECONSTRUCTION Left [...] mouth three times a day as needed forcough. DROPLET PEN NEEDLE 31 gauge x 3/16 [...] with blood glucose test two times a day.Insulin Dep? No ascorbic acid, vitamin C, (VITAMIN [...] fevers. Neuro: No history of TIA's, stroke, FORM BLOCK MAKER tumor, impaired sensorium, hemiplegia, paraplegia or quadraplegia. No neurological symptoms or problems. Respiratory: Positive for URI - onset of symptoms 04/25 - nasal congestion, productive cough and fatigue. COVID-19 and flu testing negative. No fever. Improving - AM cough productive green sputum thatis progressively improving, Negative for Asthma, COPD Cardiovascular: Positive for: Hypertension, history of cardiomyopathy during chemotherapy 2018, Negative for Recent [place], Angina, CAD, Chest Pain, Valvular Heart Disease, DVT/PE GI: Positive for GERD, PBC, Negative for Nausea, Vomiting, Abdominal pain, Hepatitis, Pancreatitis : No history of dysuria, frequency or incontinence,, stones or chronic kidney disease PATIENT SAFETY SITTER: Negative for abnormal vaginal bleeding, abnormal vaginal [...] internal mammary merlyn involvement) MX stage IIIC ER/NY positive, HER2 non overexpressed invasive ductal carcinoma of the right breast. -KPS is 100%. -PET scan indicated disease left chest wall and mediastinal lymph nodes. -MRI brain negative. -Biopsy-proven disease recurrence left chest wall inferior and posterior to implant. -ER positive (99% strong staining intensity), [place] positive (2% with strong staining intensity), HER22+; nonamplified by FISH testing. 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 -MRI Breast 03/28/2023 demonstrated PD and therapy was rotated to Faslodex and Afinitor. Oncology at [facility] recommended exemestane with Afinitor. -Symptomatically tolerating [...] breast skin lesion. Hopefully can be excised withupcoming surgery. 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 Plan: -Continue Cozaar and follow-up [...] which included preparing to see the patient, [id number] patient care, completing clinical documentation, obtaining and/or reviewing separately obtained history, performing a medically appropriate examination, counseling and educating the pat ient/family/caregiver, communicating with other HCPs (not separately reported), [...] 11:10 AM PAGER/CONTACT #: documented in this encounterNationwide [facility]02-05-2025 [facility]-05-2025 History of Present illness Narrative* Bobbi Vanegas, PT - 05/13/2024 1:53 PM EST Images from the original note were [...] and treatment included: Therapeutic exercise, Manual therapy, Self-halfway management, and Patient/Family/Caregiver Education. Goals for Episode of Care: established 04/24/24 Goals updated on 05/13/2024. Forrest in home exercise program. (Met) Patient will [...] Time (minutes): 47 Session Start Time : 0850 Session Stop Time : 936 Bobbi Vanegas PT documented in this encounterNationwide Children'S [facility]02-04-2025 NoteTr[facility]02-04-2025 History of Present illness Narrative* Cathy Burr APRN.FORM BLOCK MAKER - 05/12/2024 10:02 AM EST SUBJECTIVE Pat Sorto is a 64 year old female who presents for recheck of cough. She was seen in [facility] on April 28, 2024 for acute cough [...] TM - clear with good landmarks, nl lightreflex Nose: purulent rhinorrhea, mucosa erythematous and swollen [...] in 1 to 4 weeks. Cathy Burr APRN.CNS Medical Decision Making: Problems: Low: Acute, uncomplicated illness or injury Moderate: 1+ chronic illnesses with change Risk: Moderate: Drug management Medical Decision Making Level: 4 - Moderate documented in this encounterNationwide Children'[facility]02-03-2025 [facility]Tr[facility]02-03-2025 History of Present illness Narrative* Bianca Addison RN - 05/11/2024 10:31 AM EST AMBULATORY PATIENT EDUCATION NOTE TOPIC: SURVIVAL SKILLS: [...] patient education: 30 minutes. documented in this encounterNationwide Children'S Hospital01-30-2025 Instructions* Patient Instructions* Cathy Burr APRN.CNS - 05/07/2024 7:50 AM EST Check your blood pressure daily. Take losartan 100 mg once daily for blood pressure Avoid cough and cold medications that can increase your blood pressure such as pseudoephedrine documented in this encounterNationwide Children'S Hospital01-30-2025 History of Present illness Narrative* Cathy Burr APRN.CNS - 05/07/2024 7:40 AM EST SUBJECTIVE Pat Sorto is a 64 year old female who presents with 7 days of symptoms that are improving butnow with sore throat and nasal congestion. She was seen in [facility] on April 28, 2024 for acute cough [...] TM - clear with good landmarks, nl lightreflex Nose: purulent rhinorrhea, mucosa erythematous and swollen [...] in 1 to 4 weeks. Cathy Burr APRN.CNS Medical Decision Making: Problems: Low: Acute, uncomplicated illness or injury Moderate: 1+ chronic illnesses with change Risk: Moderate: Drug management Medical Decision Making Level: 4 - Moderate documented in this encounterNationwide Children'[facility]01-30-2025 NoteTr[facility]01-29-2025 NoteTr[facility]01-29-2025 History of Present illness Narrative* Bobbi Vanegas, PT - 05/06/2024 9:58 AM EST Episode Visit Count: 2 Therapist That Will Accept/Oversee The Plan Of Care: Guilherme Bobbi Start of Care Date: 04/24/24 Onset [...] abduction, and ER stretches with pt in semi-reclinedposition (elevated head d/t pt coughing). Skilled Intervention: [...] decision-making regarding amount of stretch, intensity of pressureand assessment of responses. Manual techniques to facilitate lymphatic dynamics and improve condition of tissue. Billing Therapeutic Exercise Treatment Minutes: 15 Manual TherapyTreatment Minutes: 41 Skilled Treatment Time Minutes (timed and untimed codes): 56 Total Session Time (minutes): 56 Session Start Time : 958 Session Stop Time : 1054 Bobbi Vanegas PT documented in this encounterNationwide Children'S Hospital01-28-2025 History of Present illness Narrative* Tatianna Crook [facility] - 05/05/2024 10:30 AM EST Primary Care Pharmacy Visit CC (Reason for Consult): (E11.9) Type 2 diabetes mellitus without complication, unspecified whetherlong term insulin use (HCC) (primary encounter diagnosis) Goal(s): A1c <8% per consult Last Collaborating Provider Visit: 03/18/24 Pat Sotro is a 64 year old female presenting [...] mouth three times a day as needed forcough. 21 capsule 0 LORazepam (ATIVAN) 0.5 mg [...] tablet by mouth at bedtime as needed. Solar Pool TechnologiesTOUCH ULTRA PLUS TEST strp 1 Each two [...] with blood glucose test two times a day.Insulin Dep? No 200 Each 3 aspirin, enteric [...] 2 diabetes mellitus without complication, unspecified whether content assistant insulin use (HCC) -ICD9: 250.00, ICD10: E11.9 - Improving control - [...] visit: 10/14/24 Next PharmD visit: 06/16/24 Tatianna Crook, PharmD, BCACP Primary Care Clinical Planer Hand documented in this encounterNationwide Children'[facility] Hospital01-28-2025 NoteTr[facility]01-27-2025 Telephone encounter Note* Telephone Encounter - Yolanda Seo PA-C - 05/04/2024 5:18 PM EST As discussed during our virtual visit, Uberseq message will be sent to patient with instructions. Thank you! Yolanda Seo PA-C 05/04/2024 [facility]01-[facility] Miscellaneous Notes* Telephone Encounter - Yolanda Seo PA-C - 05/04/2024 5:18 PM EST As discussed during our virtual visit, Uberseq message will be sent to patient with instructions. Thank you! Yolanda Seo PA-C 05/04/2024 * Telephone Encounter - Serena Carrasco DO - 05/04/2024 5:09 PM EST Giuseppe Guerrero. Actually she should hold the drug for 1 week prior to and 2 weeks after surgery as it caninterfere with wound healing. Serena Carrasco DO * Telephone Encounter - Yolanda Seo PA-C - 05/04/2024 5:02 PM EST Dyllan afternoon Dr. Carrasco, This patient was [...] Yolanda Seo PA-C PACC documented in this encounterNationwide Children'S Hospital01-27-2025 Telephone encounter Note * Telephone Encounter - Serena Carrasco DO - 05/04/2024 5:09 PM EST Giuseppe Guerrero. Actually she should hold the drug for 1 week prior to and 2 weeks after surgery as it caninterfere with wound healing. Serena Carrasco DO [facility]01-27-[facility] Telephone encounter Note* Telephone Encounter - Yolanda Seo PA-C - 05/04/2024 5:02 PM EST Dyllan afternoon Dr. Carrasco, This patient was [...] time and help, Yolanda Seo PA-C PACC [facility]01-27-20[facility] Instructions* Patient Instructions* Yolanda Seo PA-C - 05/04/2024 11:39 AM EST Images from the original note were not included. [facility] PATIENT PREOPERATIVE INSTRUCTIONS Micki Marcelino MD has scheduled you for your procedure at this surgery center: [facility]: [phone] --[id number] [place] [address] [facility]. Please read below carefully for your [...] office. If you are currently using a exnj-erp-wlno injectable or oral medication for diabetes or weight loss such as Dulaglutide (Trulicity), Exenatide (Byetta, Bydureon), Liraglutide (Victoza, Saxenda), Semaglutide (Ozempic, Wegovy, Rybelsus), or Tirzepatide (Mounjaro), the medicine should be stopped at least 7 days before surgery. These medicines can cause food to remain in your stomach for a very longtime and increase the risks from surgery and anesthesia. Not stopping the medication for a long enough time may result in your surgery being rescheduled. Blood Thinning Medications: Please follow your surgeon's instructions regarding which vlcb-[id number]-pnhdtjd supplements and blood thinners you need to [...] Procedures: - YOU MUST HAVE A RESPONSIBLE BUSINESS TRANSFORMATION MANAGER TAKE YOU HOME. A CHIEF LENDING OFFICER OR ROPE SILICA MACHINE OPERATOR CANNOT BE MADE A RESPONSIBLE BUSINESS TRANSFORMATION MANAGER. - We recommend that a responsible person [...] inconvenience. Yolanda Seo PA-C documented in this encounterNationwide Children'S Hospital01-27-2025 History and physical note * Yolanda Seo PA-C - 05/04/2024 11:00 AM EST Images from the original note were not included. PREANESTHESIA CONSULT CLINIC TELEHEALTH VISIT Patient has been identified by name and date of : Yes This is a virtual visit using Not[employer] Video Visit. It require patient- provider interaction forthe medical decision making as documented below. Reason for contact: PACC visit Accompanied by: Self Scheduled Surgery: Procedure(s) (LRB): REMOVAL IMPLANT BREAST (Left) CAPSULECTOMY BREAST IMPLANT COMPLETE INCLD REMOVAL OF ALL INTRACAPSULAR CONTENTS (Left) MASTECTOMY SIMPLE (Left) I have communicated my name and active licensure. The patient's identity and physical location wereverified at the time of this visit. Either the patient or their legal senior customer service representative has been informed of the risks and benefits of -- and alternatives to -- treatment through a remote evaluation andconsents to proceed with the evaluation remotely. ASSESSMENT: 1. Preop examination Scheduled for above procedure 2. Viral URI with cough Onset of symptoms 04/25 with nasal congestion, cough and fatigue. She took home COVID-19 test that was negative and tested negative for influenza in [facility] care. Chest x-ray was negative for [...] patient to reach out to PCP and/or welder gas tungsten arc if the readings are consistently elevated. She plans to do this 4. Chemotherapy-induced cardiomyopathy (HCC) Patient follows with cardiology due to borderline abnormal global myocardial strain pattern. She rosi losartan daily. Patient is very active and asymptomatic. She denies CP, SOB, orthopnea, edema, syncope. Her most recent EF on echocardiogram 08/27/2023 was 59%. Hoop Punch And Coiler Operator note reviewed from 10/09/2023 mentions recommendations for BP optimization. Will work toensure BP is addressed (if needed) preop Cardiology [...] (HCC) followed by Dr. Husam Hart in [place] PAST SURGICAL HISTORY Procedure Laterality Date ARTHRP ACETBLR/PROX FEM PROSTC AGRFT/ALGRFT Right 03/20/2019 Hip replacement, total ARTHRP KNE CONDYLE&PLATU MEDIAL&LAT COMPARTMENTS Left 02/2016 BIOPSY BREAST OPEN INCISIONAL Left 2007 [facility] benign pathology per patient BREAST RECONSTRUCTION Left [...] mouth three times a day as needed forcough. DROPLET PEN NEEDLE 31 gauge x 3/16 [...] with blood glucose test two times a day.Insulin Dep? No ascorbic acid, vitamin C, (VITAMIN [...] fevers. Neuro: No history of TIA's, stroke, FORM BLOCK MAKER tumor, impaired sensorium, hemiplegia, paraplegia or quadraplegia. No neurological symptoms or problems. Respiratory: Positive for URI - onset of symptoms 04/25 - nasal congestion, productive cough and fatigue. COVID-19 and flu testing negative. No fever. Improving - AM cough productive green sputum thatis progressively improving, Negative for Asthma, COPD Cardiovascular: Positive for: Hypertension, history of cardiomyopathy during chemotherapy 2017, Negative for Recent [place], Angina, CAD, Chest Pain, Valvular Heart Disease, DVT/PE GI: Positive for GERD, PBC, Negative for Nausea, Vomiting, Abdominal pain, Hepatitis, Pancreatitis : No history of dysuria, frequency or incontinence,, stones or chronic kidney disease PATIENT SAFETY SITTER: Negative for abnormal vaginal bleeding, abnormal vaginal [...] internal mammary merlyn involvement) MX stage IIIC ER/NY positive, HER2 non overexpressed invasive ductal carcinoma of the right breast. -KPS is 100%. -PET scan indicated disease left chest wall and mediastinal lymph nodes. -MRI brain negative. -Biopsy-proven disease recurrence left chest wall inferior and posterior to implant. -ER positive (99% strong staining intensity), [place] positive (2% with strong staining intensity), HER22+; nonamplified by FISH testing. 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 -MRI Breast 03/28/2023 demonstrated PD and therapy was rotated to Faslodex and Afinitor. Oncology at [facility] recommended exemestane with Afinitor. -Symptomatically tolerating [...] breast skin lesion. Hopefully can be excised withupcoming surgery. 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 Plan: -Continue Cozaar and follow-up [...] which included preparing to see the patient, [id number] patient care, completing clinical documentation, obtaining and/or reviewing separately obtained history, performing a medically appropriate examination, counseling and educating the pat ient/family/caregiver, communicating with other HCPs (not separately reported), [...] DATE: 05/04/2024 TIME: 11:10 AM PAGER/CONTACT #: [facility]01-27-2025 History and physical note* Yolanda Seo PA-C - 05/04/2024 11:00 AM EST Images from the original note were not included. PREANESTHESIA CONSULT CLINIC TELEHEALTH VISIT Patient has been identified by name and date of : Yes This is a virtual visit using [employer] Video Visit. It require patient- provider interaction forthe medical decision making as documented below. Reason for contact: PACC visit Accompanied by: Self Scheduled Surgery: Procedure(s) (LRB): REMOVAL IMPLANT BREAST (Left) CAPSULECTOMY BREAST IMPLANT COMPLETE INCLD REMOVAL OF ALL INTRACAPSULAR CONTENTS (Left) MASTECTOMY SIMPLE (Left) I have communicated my name and active licensure. The patient's identity and physical location wereverified at the time of this visit. Either the patient or their legal senior customer service representative has been informed of the risks and benefits of -- and alternatives to -- treatment through a remote evaluation andconsents to proceed with the evaluation remotely. ASSESSMENT: 1. Preop examination Scheduled for above procedure 2. Viral URI with cough Onset of symptoms 04/25 with nasal congestion, cough and fatigue. She took home COVID-19 test that was negative and tested negative for influenza in [facility]. Chest x-ray was negative for pneumonia. She [...] patient to reach out to PCP and/or welder gas tungsten arc if the readings are consistently elevated. She plans to do this 4. Chemotherapy-induced cardiomyopathy (HCC) Patient follows with cardiology due to borderline abnormal global myocardial strain pattern. She rosi losartan daily. Patient is very active and asymptomatic. She denies CP, SOB, orthopnea, edema, syncope. Her most recent EF on echocardiogram 08/27/2023 was 59%. Hoop Punch And Coiler Operator note reviewed from 10/09/2023 mentions recommendations for BP optimization. Will work toensure BP is addressed (if needed) preop Cardiology [...] (HCC) followed by Dr. Husam Hart in [place] PAST SURGICAL HISTORY Procedure Laterality Date ARTHRP ACETBLR/PROX FEM PROSTC AGRFT/ALGRFT Right 03/20/2019 Hip replacement, total ARTHRP KNE CONDYLE&PLATU MEDIAL&LAT COMPARTMENTS Left 02/2016 BIOPSY BREAST OPEN INCISIONAL Left 2007 [facility] benign pathology per patient BREAST RECONSTRUCTION Left [...] mouth three times a day as needed forcough. DROPLET PEN NEEDLE 31 gauge x 3/16 [...] with blood glucose test two times a day.Insulin Dep? No ascorbic acid, vitamin C, (VITAMIN [...] fevers. Neuro: No history of TIA's, stroke, FORM BLOCK MAKER tumor, impaired sensorium, hemiplegia, paraplegia or quadraplegia. No neurological symptoms or problems. Respiratory: Positive for URI - onset of symptoms 04/25 - nasal congestion, productive cough and fatigue. COVID-19 and flu testing negative. No fever. Improving - AM cough productive green sputum thatis progressively improving, Negative for Asthma, COPD Cardiovascular: Positive for: Hypertension, history of cardiomyopathy during chemotherapy 2017, Negative for Recent [place], Angina, CAD, Chest Pain, Valvular Heart Disease, DVT/PE GI: Positive for GERD, PBC, Negative for Nausea, Vomiting, Abdominal pain, Hepatitis, Pancreatitis : No history of dysuria, frequency or incontinence,, stones or chronic kidney disease PATIENT SAFETY SITTER: Negative for abnormal vaginal bleeding, abnormal vaginal [...] internal mammary merlyn involvement) MX stage IIIC ER/[place] positive, HER2 non overexpressed invasive ductal carcinoma of the right breast. -KPS is 100%. -PET scan indicated disease left chest wall and mediastinal lymph nodes. -MRI brain negative. -Biopsy-proven disease recurrence left chest wall inferior and posterior to implant. -ER positive (99% strong staining intensity), [place] positive (2% with strong staining intensity), HER22+; nonamplified by FISH testing. 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 -MRI Breast 03/28/2023 demonstrated PD and therapy was rotated to Faslodex and Afinitor. Oncology at [facility] recommended exemestane with Afinitor. -Symptomatically tolerating [...] breast skin lesion. Hopefully can be excised withupcoming surgery. 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 Plan: -Continue Cozaar and follow-up [...] which included preparing to see the patient, [id number] patient care, completing clinical documentation, obtaining and/or reviewing separately obtained history, performing a medically appropriate examination, counseling and educating the pat ient/family/caregiver, communicating with other HCPs (not separately reported), [...] 11:10 AM PAGER/CONTACT #: documented in this encounterNationwide Children'S Hospital01-21-2025 Note* Addendum Note - Carla Forbes APRN.CNP - 04/28/2024 5:49 PM ESTAddended by: CARLA FORBES on: 04/28/2024 05:49 PM Modules accepted: Orders [facility]01-21-2025 Miscellaneous Notes* Addendum Note - Carla Forbes APRN.CNP - 04/28/2024 5:49 PM ESTAddended by: CARLA FORBES on: 04/28/2024 05:49 PM Modules accepted: Orders documented in this encounterNationwide Children'S Hospital01-21-2025 History of Present illness Narrative* Alondra Phelps RT(R) - 04/28/2024 3:20 PM EST Radiology Service Progress Note PATIENT [...] Assigned female at . status: : No status:NO. PATIENT RELEVANT IMPLANT DATA REVIEWED: Yes PATIENT PRESENTS WITH AN IMPLANTABLE OR ATTACHED ELECTRIC MOTOR ASSEMBLER AND TESTER: No RADIOLOGY DEPARTMENT: General X-ray: Exam(s) Completed: Chest X-Ray PERIPHERAL IV DATA: Not applicable SIGNED BY: RT Nicolasa(R) April 28, 2024 3:40 PM documented in this encounterNationwide Children'S Hospital01-21-2025 NoteTr[facility]01-21-2025 NoteTr[facility]01-21-2025 History of Present illness Narrative* Carla Forbes APRN.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 - 04/28/2024 2:59 PM EST This note was created using NoteWriter. Subjective [...] history is provided by the patient. No foreign languages department chair was used. Nasal Congestion This is a new problem. The current episode started in the past 7 days. The problem is unchanged. There has been no fever. Her pain is at a severity of 4/10. The pain is moderate. Associated symptoms include chills, congestion, coughing, sinus pressure and sneezing. Pertinent negatives include no moy phoresis, ear pain, headaches, hoarse voice, neck pain, shortness of breath, sore throat or swollenglands. Past treatments include nothing. The treatment provided no relief. 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 Husam Hart in [place] PAST SURGICAL HISTORY Procedure Laterality Date ARTHRP ACETBLR/PROX FEM PROSTC AGRFT/ALGRFT Right 03/20/2019 Hip replacement, total ARTHRP KNE CONDYLE&PLATU MEDIAL&LAT COMPARTMENTS Left 02/2016 BIOPSY BREAST OPEN INCISIONAL Left 2007 [facility] benign pathology per patient BREAST RECONSTRUCTION Left 2019 fat graft/implant exchange DELIVERY ONLY 1996,1993 , low transverse MASTECTOMY HX Left 2018 AND with immediate reconstruction ALLERGIES Amoxicillin MEDICATIONS [...] tablet by mouth at bedtime as needed. mycujooUCH ULTRA PLUS TEST strp 1 Each two times a day. E11.65; No insulin Lancets Use with blood glucose test two times a day. Insulin Dep? No blood sugar diagnostic (BLOOD GLUCOSE TEST) test strip Use with blood glucose test two times a day.Insulin Dep? No aspirin, enteric coated (ASPIRIN, ENTERIC [...] kg (170 lb 6.7 oz) SpO2 96% BMI28.05 kg/m Physical Exam Vitals and nursing note [...] or sooner if worsening of symptoms Carla Forbes, 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.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 documented in this encounterNationwide Children'S Hospital01-21-2025 Telephone encounter Note * Telephone Encounter - Susana Mix RN - 04/28/2024 2:23 PM EST Patient calling with request for evaluation of respiratory sx's. Denies any severe symptoms such aschest pain, SOB, dizziness or weakness. No appts available this afternoon at this [facility]. Patient agreeable to come to [facility] for evaluation now, as she wishes to begin treatment now, if indicated. Susana Mix RN [facility]01-21-2025 Miscellaneous Notes* Telephone Encounter - Susana Mix RN - 04/28/2024 2:23 PM EST Patient calling with request for evaluation of respiratory sx's. Denies any severe symptoms such aschest pain, SOB, dizziness or weakness. No appts available this afternoon at this [facility]. Patient agreeable to come to [facility] for evaluation now, as she wishes to begin treatment now, if indicated. Susana Mix RN documented in this encounterNationwide Children'S Hospital01-17-2025 History of Present illness Narrative* Bobbi Vanegas, PT - 04/24/2024 11:49 AM EST Program_ID:[id number] Access Code: [email or web address] URL: [email or web address] Date: 04-24-2024 Prepared By: Bobbi Vanegas Program [...] x weekly - sets - 3-5 reps * Bobbi Vanegas, PT - 04/24/2024 11:05 AM EST Images from the original note [...] with impairments in edema management, tissue tenderness, andsoft tissue restrictions. PROMIS (Patient-Reported Outcomes Measurement Information System) scores were reviewed and identified as a rehabilitation concern. Prognosis for therapy is Excellent due to:current objective clinical presentation, good overall health status, good support system/ coping skills . The patient will benefit from skilled therapy services to meet the goals established for thisplan of care as noted below. Goals for Episode of Care: established 04/24/24 Forrest in home exercise program. Patient will decrease [...] / doffing compression garment and proper wearing scheduleand care of garment Patient will decrease circumferential measurements by 0.5 to 1.0cm in the following areas: L UE fordecreased recurrence of infection, improved mobility, improved range of motion and allow appropriate fit in compressive garment. Pt will obtain appropriate and effective compression garment(s) to promote effective self-management. Patient Goals: To get ready for upcoming surgery for best effects. To help heal and get motion backas quickly as possible. Time Frame for Goals and Treatment : 05/25/24 Planned Interventions, Frequency, and Duration: Current Frequency: 1x/week Duration: 4 weeks Total Number of Visits Planned: 4 Planned Treatment Interventions: Therapeutic exercise (75031), Manual therapy (42531), Self-halfway management (76590), Patient/Family/Caregiver Education PLAN FOR NEXT VISIT: Assess [...] a lot of swelling and pain. Bicep towrist (tender to touch). It's a lot better now. Still a little tender, but not near as bad as it was. Denies aggravating factors or incident. Lasted about 3-4 weeks. Just now feeling better. US wasnegative for blood clot. Tried using compression sleeve, but her hand would swell when she wore it.Pt states she doesn't think she would wear a glove d/t how much she uses and washes her hands through the day. Discussed possibly a nighttime garment instead. Has surgery scheduled May 18 to remove the L breast prosthesis/implant. Patient Goals: To get ready for upcoming surgery for best effects. To help heal and get motion backas quickly as possible. Functional Limitations: nothing (Previously was interfering with daily activities, but now is back to normal.) Relevant History Past Relevant Medical Conditions: Hypertension (primary biliary cirrhosis) Past Relevant Surgical Conditions: Total Hip Replacement-Left, Total Knee Replacement-Left Right or Left Handed: Right Employment: Retired ([employer]) Intake Information: Prescription present Previous Treatment: (Wore the compression sleeve, but hand gets swollen when wearing it. Jumping onsmall trampoline with various arm movements.) Pain: Pain [...] 1157 Bobbi Vanegas PT documented in this encounterNationwide [facility]01-17-2025 NoteTr[facility]01-08-2025 NoteHNO ID: [id number] Author: NINI RUSSELL MA Service: ? Author Type: Life Specialist Type: Progress Notes Filed: 04/15/2024 12:41 Note Text:[facility]01-08-2025 History of Present illness Narrative* Nini Russell MA - 04/15/2024 12:21 PM EST Images from the original note were not included. * Daisy Titus APRN.CNP - 04/15/2024 12:15 PM EST OFFICE VISIT PROGRESS NOTE CC Pat Sorto [...] 4 oz (regular pop) 4 oz Dinner [place] or Steak or Chicken OR pasta with protein on weekends pizza or fish sandwich OR saladwith protein sometimes take out/usually weekends only Snacks [...] 12 -- -- -- -- 11 12 -- TCHDL -- 4.07 -- 4.91 [...] (HCC) followed by Dr. Husam Hart in [place] PAST SURGICAL HISTORY Procedure Laterality Date ARTHRP ACETBLR/PROX FEM PROSTC AGRFT/ALGRFT Right 03/20/2019 Hip replacement, total ARTHRP KNE CONDYLE&PLATU MEDIAL&LAT COMPARTMENTS Left 02/2016 BIOPSY BREAST OPEN INCISIONAL Left 2007 [facility] benign pathology per patient BREAST RECONSTRUCTION Left [...] BY MOUTH THEN SPIT ONCE WEEKLY Insulin [place], Disposable, (PEN NEEDLE) 32 gauge x 5/32 Inject 1 Each subcutaneously every 24 hours. Give with each insulin administration. exemestane (AROMASIN) 25 mg tablet TAKE ONE TABLET BY MOUTH DAILY AFTER A MEAL diphenhydrAMINE-Acetaminophen (TYLENOL PM EXTRA STRENGTH) 25-500 mg tab Take 1 tablet by mouth at bedtime as needed. mycujooUCH ULTRA PLUS TEST strp 1 Each two times a day. E11.65; No insulin losartan (COZAAR) 25 mg tablet take 1 tablet by mouth once daily (Patient not taking: Reported on 03/18/2024) Lancets Use with blood glucose test two times a day. Insulin Dep? No blood sugar diagnostic (BLOOD GLUCOSE TEST) test strip Use with blood glucose test two times a day.Insulin Dep? No aspirin, enteric coated (ASPIRIN, ENTERIC [...] BMI 27.33 kg/m [facility] 160[facility]110 GENERAL: alert and appropriate, in no [...] adjust LANTUS for NPO status night before surgicalprocedure Patient will call office for any other [...] A1C Daisy Titus CNP documented in this encounterNationwide Children'S Hospital01-08-2025 NoteTr[facility]01-06-2025 Telephone encounter Note* Telephone Encounter - Cayla Charles PA-C - 04/13/2024 2:20 PM EST Spoke to patient Discussed surgery date of Thursday 05/[address] Bingham and Dr. Marcelino which she agreed to Will see for preops the week prior Advised to stop Aromasin one week prior to surgery which pt verbalized understanding Cayla Charles PA-C April 13, 2024 2:20 PM [facility]01-[facility] Miscellaneous Notes* Telephone Encounter - Cayla Charles PA-C - 04/13/2024 2:20 PM EST Spoke to patient Discussed surgery date of Thursday 05/[address] Bingham and Dr. Marcelino which she agreed to Will see for preops the week prior Advised to stop Aromasin one week prior to surgery which pt verbalized understanding Cayla Charles PA-C April 13, 2024 2:20 PM documented in this encounterNationwide Children'S Hospital01-06-2025 Telephone encounter Note * Telephone Encounter - Inge Bonner - 04/13/2024 1:07 PM EST Apurva as directed [facility]01-06-2025 Miscellaneous Notes* Telephone Encounter - Inge Bonner - 04/13/2024 1:07 PM EST Apurva as directed * Telephone Encounter - Kasie Lamb LPN - 04/13/2024 10:58 AM EST PSS please reach out to schedule with pt. for repeat PET scan several days before I see her in 3 to4 months. Kasie Lamb LPN * Telephone Encounter - Serena Carrasco DO - 04/13/2024 10:07 AM EST It means they have took some of the tracer that was injected in the right arm. They are not cancerous. Serena Carrasco DO * Telephone Encounter - Kasie Lamb LPN - 04/13/2024 9:09 AM EST Pt. Contacted concerning results of PET , she questioned what this means Mild activity in the right axillary lymph nodes likely reactive. So she can have a better understanding. PET orders pended, please sign Kasie Lamb LPN * Telephone Encounter - Inge Bonner - 04/11/2024 8:[address] order * Telephone Encounter - Serena Carrasco DO - 04/10/2024 5:04 PM EST Can let her know PET scan shows stable findings. Mild uptake in the previous areas posterior to thebreast. No progression of cancer. We will continue current therapy. Please schedule for repeat PET scan several days before I see her in 3 to 4 months. documented in this encounterNationwide Children'S Hospital01-06-2025 Telephone encounter Note * Telephone Encounter - Kasie Lamb LPN - 04/13/2024 12:04 PM EST Spoke with pt, informed of negative ultrasound .Please refer to physical therapy for lymphedema. Pt. Voiced understanding. Kasie Lamb LPN [facility]01-06-2025 Miscellaneous Notes* Telephone Encounter - Kasie Lamb LPN - 04/13/2024 12:04 PM EST Spoke with pt, informed of negative ultrasound .Please refer to physical therapy for lymphedema. Pt. Voiced understanding. Kasie Lamb LPN * Telephone Encounter - Serena Carrasco DO - 04/13/2024 11:58 AM EST Can let her know that ultrasound left arm was negative for blood clot. Please refer to physical therapy for lymphedema. Order filed. documented in this encounterNationwide Children'S Hospital01-06-2025 Telephone encounter Note * Telephone Encounter - Serena Carrasco DO - 04/13/2024 11:58 AM EST Can let her know that ultrasound left arm was negative for blood clot. Please refer to physical therapy for lymphedema. Order filed. [facility]01-06-2025 Telephone encounter Note* Telephone Encounter - Kasie Lamb LPN - 04/13/2024 10:58 AM EST PSS please reach out to schedule with pt. for repeat PET scan several days before I see her in 3 to4 months. Kasie Lamb LPN [facility]01-06-[facility] Telephone encounter Note* Telephone Encounter - Serena Carrasco DO - 04/13/2024 10:07 AM EST It means they have took some of the tracer that was injected in the right arm. They are not cancerous. Serena Carrasco DO [facility]01-06-2025 History of Present illness Narrative* Luann Clarke RT(R) - 04/13/2024 10:00 AM EST Radiology Service Progress Note PATIENT [...] PATIENT PRESENTS WITH AN IMPLANTABLE OR ATTACHED ELECTRIC MOTOR ASSEMBLER AND TESTER: No RADIOLOGY DEPARTMENT: Ultrasound PERIPHERAL IV DATA: Not applicable SIGNED BY: Luann Clarke RDMS, RVT April 13, 2024 10:58 AM documented in this encounterNationwide Children'S Hospital01-06-2025 NoteHNO ID: [id number] Author: LUANN CLAREK RT(R) Service: ? Author Type: Technologist Type: [...] PATIENT PRESENTS WITH AN IMPLANTABLE OR ATTACHED ELECTRIC MOTOR ASSEMBLER AND TESTER: No RADIOLOGY DEPARTMENT: Ultrasound PERIPHERAL IV DATA: Not applicable SIGNED BY: Luann Clarke RDMS, RVT April 13, 2024 10:58 AMNorthern [facility]01-[facility] Telephone encounter Note* Telephone Encounter - Kasie Lamb LPN - 04/13/2024 9:09 AM EST Pt. Contacted concerning results of PET , she questioned what this means Mild activity in the right axillary lymph nodes likely reactive. So she can have a better understanding. PET orders pended, please sign Kasie Lamb LPN [facility]01-04-2025 Telephone encounter Note* Telephone Encounter - Inge Bonner - 04/11/2024 8:[address] order [facility]01-03-2025 Telephone encounter Note* Telephone Encounter - Serena Carrasco DO - 04/10/2024 5:04 PM EST Can let her know PET scan shows stable findings. Mild uptake in the previous areas posterior to thebreast. No progression of cancer. We will continue current therapy. Please schedule for repeat PET scan several days before I see her in 3 to 4 months. [facility]01-03-2025 [facility]Tr[facility]01-03-2025 History of Present illness Narrative* Serena Carrasco DO - 04/10/2024 9:18 AM EST Diagnosis: 1) Breast cancer. HPI: The patient is a 64-year-old female who has a past medical history significant for hypertension and primary biliary cirrhosis. She is seen by her accounts receivable accountant approximately once a year and she has had stable findings. Most recent liver chemistries performed at [facility] on 01/10/2017 showed a total bilirubin of [...] Evidently she was on a trip to [place] about 2 1/2 years ago when she [...] greatest length). ER (clone 6F11) >95%, strong NY (clone 16/1E2) >95%, strong Her-2Neu (clone CB11) [...] Previously performed (HER2) ERBB2 Status: Previously performed Scrapper Tumor Block: Specify: B3 Residual tumor burden: Tumor bed dimension #1: 8 mm Tumor bed dimension #2: 5 mm Overall tumor cellularity 50% Percentage in situ 3% Comment: Please see [id number] for the results of estrogen and progesterone receptors and HER2 studies. 3) [facility] Stopped 08/2022. Metastatic disease. Had [...] was performed [facility] and compared to appropriate reactive controls. [...] everolimus second week April 2023. Was at [facility]. Had PET scan on 05/02. Demonstrated [...] discussed with the Patient or Patient's Authorized Scrapper. Asapplicable, any other physician, advance practice provider, medical student, or other health professional student that will be observing or involved in the sensitive examination for educational or training purposes was discussed with the Patient or Authorized Scrapper. The Patient or Authorized Scrapper has agreed to proceed with the sensitive examination. (Sensitive examination includes inspection and/or palpation of the breasts, pelvis, prostate and anorectal regions) Kasie Lamb LPN chaperoned PHYSICAL EXAM: Vitals: Blood pressure 134/90, pulse 100, temperature 36.9 C (98.5 F), temperature source Temporal,weight 77.6 kg (171 lb), SpO2 96%. -appearing [...] SKIN: No jaundice or rash. LABS: PET [facility] on 05/02/2023. Resolution of FDG avid [...] internal mammary merlyn involvement) MX stage IIIC ER/NY positive, HER2 non overexpressed invasive ductal carcinoma of the right breast. -KPS is 100%. -PET scan indicated disease left chest wall and mediastinal lymph nodes. -MRI brain negative. -Biopsy-proven disease recurrence left chest wall inferior and posterior to implant. -ER positive (99% strong staining intensity), NY positive (2% with strong staining intensity), HER22+; nonamplified by FISH testing. 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 -MRI Breast 03/28/2023 demonstrated PD and therapy was rotated to Faslodex and Afinitor. Oncology at [facility] recommended exemestane with Afinitor. -Symptomatically tolerating [...] breast skin lesion. Hopefully can be excised withupcoming surgery. 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 Plan: -Continue Cozaar and follow-up [...] which included preparing to see the patient, [id number] patient care, completing clinical documentation, obtaining and/or reviewing separately obtained history, performing a medically appropriate examination, counseling and educating the pat ient/family/caregiver, communicating with other HCPs (not separately reported), and communicating results to the patient/family/caregiver. Serena Carrasco DO documented in this encounterNationwide Children'S Hospital12-30-2024 History of Present illness Narrative* Myla Do, RT(R) - 04/06/2024 9:00 AM EST RADIOLOGY SERVICE PROGRESS NOTE SERVICE DATE: 04/06/2024 [...] PATIENT PRESENTS WITH AN IMPLANTABLE OR ATTACHED ELECTRIC MOTOR ASSEMBLER AND TESTER: No CREATININE: Creatinine Date Value Ref Range [...] radiation safety can be found usingthis link: [email or web address]%[email or web address] SIGNATURE: PATRICIA Ying) PATIENT NAME: Pat Sorto DATE: April 06, 2024 TIME: 9:00 AM PAGER/CONTACT #: documented in this encounterNationwide Children'S Hospital12-30-2024 NoteHNO ID: [id number] Author: MYLA DO RT (R) Service: Nuclear [...] PATIENT PRESENTS WITH AN IMPLANTABLE OR ATTACHED ELECTRIC MOTOR ASSEMBLER AND TESTER: No CREATININE: Creatinine Date Value Ref Range [...] 0854 PATIENT DISCHARGED TO: Ambulatory patient, left [place] department area. Is this a therapy: No A Diagnostic radioactive procedure has taken place, with no further precautions necessary other than routine body substance precautions. More information regarding radiation safety can be found using this link: [email or web address] SIGNATURE: RT Deonna(R) PATIENT NAME: Pat Sorto DATE: April 06, 2024 TIME: 9:00 AM PAGER/CONTACT #:[id number] NoteHNO ID: [id number] Author: DELMY PRIDE ST Service: ? Author Type: Surg Solar Photovoltaic Designer Type: Progress Notes Filed: 03/25/2024 11:26 Note Text: DATE OF PHOTOS: 03/25/2024 Body Part: Breasts ST HANNA March 25, 2024 11:26 [facility]12-18-2024 History of Present illness Narrative* Delmy Pride ST - 03/25/2024 11:26 AM EST DATE OF PHOTOS: 03/25/2024 Body Part: BreastST Khari March 25, 2024 11:26 AM documented in this encounterNationwide Children'S Hospital12-18-2024 History of Present illness Narrative* Sussy Mcintyre RT(R) - 03/25/2024 11:00 AM EST Radiology Service Progress Note PATIENT [...] PATIENT PRESENTS WITH AN IMPLANTABLE OR ATTACHED ELECTRIC MOTOR ASSEMBLER AND TESTER: No RADIOLOGY DEPARTMENT: Mammography PERIPHERAL IV DATA: Not applicable SIGNED BY: RT Gilson(R) March 25, 2024 11:20 AM documented in this encounterNationwide Children'S Hospital12-18-2024 NoteTr[facility]12-18-2024 Telephone encounter Note* Telephone Encounter - Svetlana Kong LPN - 03/25/2024 10:[address] Peace is prescribing losartan 50 mg. Rx refill refused. Confirmed with patient. Svetlana Kong LPN [facility]12-18-2024 Miscellaneous Notes* Telephone Encounter - Svetlana Kong LPN - 03/25/2024 10:[address] Peace is prescribing losartan 50 mg. Rx refill refused. Confirmed with patient. Svetlana Kong LPN documented in this encounterNationwide Children'S Hospital12-18-2024 History of Present illness Narrative* Micki Marcelino MD - 03/25/2024 8:30 AM EST BREAST RECONSTRUCTION EVALUATION CC: Consult for Breast [...] Postive patient history of breast disease: in 2018 MAMMOGRAM: No MRI BREAST BILAT: Yes, date: [...] (HCC) followed by Dr. Husam Hart in [place] MEDS: Current Outpatient Medications Medication Sig Dispense Refill [...] BY MOUTH THEN SPIT ONCE WEEKLY Insulin [place], Disposable, (PEN NEEDLE) 32 gauge x 5/32 [...] with blood glucose test two times a day.Insulin Dep? No 200 Each 3 aspirin, enteric [...] dermal matrix (ADM) is used as an off- label device and can potentially increase postoperative complications. [...] Past Histories independently gathered by the clinical other sales support worker and the remaining scribed note accurately describes [...] surgery. Micki Marcelino MD documented in this encounterNationwide Children'S Hospital12-18-2024 History of Present illness Narrative* Eliz Bingham MD - 03/25/2024 8:30 AM EST LAST SEEN Apr 2023 following up to [...] scheduled 04/06/24 HISTORY: Presented in 2018 with ER/NY positive, HER2 negative left LABC [id number] Stage IIIC Neoadjuvant course :ddACx4, Taxol x12 [...] has mildly increased compared to the prior breastMRI She has been maintaining on Faslodex (since August 2022) and Ribociclib (since Nov 2022) started exemestane May 2023 HISTORY: additional: known PBC (LFTs stable) and HTN she wears a compression sleeve REVIEW OF SYSTEMS 14 point ROS is negative except for that which is stated above. EXAMINATION: The sensitive examination was discussed with the Patient or Patient's Authorized Scrapper. Asapplicable, any other physician, advance practice provider, medical student, or other health professional student that will be observing or involved in the sensitive examination for educational or training purposes was discussed with the Patient or Authorized Scrapper. The Patient or Authorized Scrapper has agreed to proceed with the sensitive [...] related IMPRESSION/PLAN: PBC HTN 2018: Stage IIIC ER/NY positive, HER2 negative left breast cancer treated; [...] and there was clinical evidence of disease progression.No intervention recommended. She presents today with worsening [...] to access mastectomy bed with possible excision ofgross disease if deemed safe. I spent a total of 75 minutes on the date of the service which included preparing to see the patient, [id number] patient care, completing clinical documentation, obtaining and/or reviewing separately obtained history, performing a medically appropriate examination, counseling and educating the pat ient/family/caregiver, ordering medications, tests, or procedures, communicating with other HCPs (not separately reported), independently interpreting results (not separately reported), communicatingresults to the patient/family/caregiver, and care coordination (not separately reported). Eliz Bingham MD documented in this encounterNationwide Children'S Hospital12-18-2024 NoteTr[facility]12-18-2024 NoteTr[facility]12-11-2024 Instructions* Patient Instructions* Jacinta Rivas MD - 03/18/2024 2:33 PM EST - Increase Losartan dosage to 50 mg daily to better manage blood pressure. - Monitor blood pressure regularly and report any significant changes. - Continue current insulin regimen; contact your solutions development analyst to discuss potential adjustments to better control [...] excessive tearing. - Follow up with your tip cutter to discuss potential cataract surgery and eyelid surgery to improve vision and reduce tearing. - Follow up with your surgeon to discuss the removal of the implant that is causing discomfort. - Follow up with your accounts receivable accountant to monitor liver function and address any potential issues. - Follow up with your welder gas tungsten arc to monitor heart function and address any potential issues. - Follow up with your solutions development analyst to monitor blood sugar levels and adjust insulin dosage as needed. - Follow up with your oncologist to monitor the effectiveness of Afinitor and address any potentialside effects. - Follow up with your primary care physician to monitor overall health and address any new or ongoing concerns. documented in this encounterNationwide Children'S Hospital12-11-2024 NoteTr[facility]12-11-2024 History of Present illness Narrative* Jacinta Rivas MD - 03/18/2024 1:08 PM EST This note was created using Silent Circleriter. Subjective Pat Sorto is a 64 year [...] readings since starting Afinitor. She is currently takinglosartan 25 mg, but her welder gas tungsten arc, Dr. Peace, has recommended increasing the dosage to 50 mg. She has not yet made this adjustment and is seeking confirmation before doing so. She notes occasionalelevations in her resting heart rate and is [...] she attributes to chemotherapy. She has been diagnosedwith cataracts, with the left eye being more [...] under the care of an oncologist at [facility] in [place], [place], and has a PET scan scheduled for the end of the month. She is also following up with a accounts receivable accountant for liver issues and is under the care of an solutions development analyst for diabetes management. She denies any recent [...] (HCC) followed by Dr. Husam Hart in [place] Current Outpatient Medications Medication Sig LORazepam (ATIVAN) [...] BY MOUTH THEN SPIT ONCE WEEKLY Insulin [place], Disposable, (PEN NEEDLE) 32 gauge x 5/32 [...] with blood glucose test two times a day.Insulin Dep? No aspirin, enteric coated (ASPIRIN, ENTERIC [...] (5' 5.35) Wt 75.8 kg (167 lb 1.7oz) SpO2 98% BMI 27.51 kg/m Last 5 [...] memory normal. Judgment: Judgment normal. Latest Ref Rng 07/16/2023 08/05/2023 08/08/2023 08/30/2023 09/30/2023 11/11/2023 01/06/2024 [...] 4.00 k/uL 1.46 1.65 1.85 1.94 1.41 Pettis% % 8.7 7.0 9.7 7.2 7.7 Abs Pettis <0.87 k/uL 0.53 0.45 0.59 0.67 0.46 [...] current insulin regimen; patient to contact Keisha Castro PharmD, for potential insulin dose adjustments. - Educated [...] weeks; no significant erythema or exudates observed onexamination. - Discussed potential viral etiology and the [...] to 50 mg as previously recommended by welder gas tungsten arc Dr. Peace. - Discussed the importance of [...] care. Jacinta Rivas MD documented in this encounterNationwide Children'S Hospital12-04-2024 Telephone encounter Note * Telephone Encounter - Svetlana Kong LPN - 03/11/2024 7:37 AM EST Rx pended. Svetlana Kong LPN [facility]12-04-2024 Miscellaneous Notes* Telephone Encounter - Svetlana Kong LPN - 03/11/2024 7:37 AM EST Rx pended. Svetlana Kong LPN documented in this encounterNationwide Children'S Hospital12-02-2024 Telephone encounter Note * Telephone Encounter - Kasie Lamb LPN - 03/09/2024 11:12 AM EST Prescription Refill Information The patient has been [...] Lamb LPN March 09, 2024 11:12 AM [facility]12-02-2024 Miscellaneous Notes* Telephone Encounter - Kasie Lamb LPN - 03/09/2024 11:12 AM EST Prescription Refill Information The patient has been [...] 09, 2024 11:12 AM documented in this encounterNationwide Children'S Hospital11-21-2024 Telephone encounter Note * Telephone Encounter - Bianca Addison RN - 02/27/2024 8:30 AM EST Spoke with Pat. She will come in and meet with Dr Bingham and Dr Marcelino on 03/25 at 0830. Will schedule her imaging that day also. No further questions. She will check in and go to Dr Marcelino office. [facility]11-[facility] Miscellaneous Notes* Telephone Encounter - Bianca Addison RN - 02/27/2024 8:30 AM EST Spoke with Pat. She will come in and meet with Dr Bingham and Dr Marcelino on 03/25 at 0830. Will schedule her imaging that day also. No further questions. She will check in and go to Dr Marcelino office. documented in this encounterNationwide Children'S Hospital11-20-2024 Telephone encounter Note * Telephone Encounter - Cayla Charles PA-C - 02/26/2024 8:43 AM EST Spoke to patient Advised will r/s apts today with Dr. Bingham and Dr. Marcelino as the purpose would be to be seen together simultaneously Will look into April after her PET scan Will r/s her mammogram in [place] for the right side Pt agreeable Cayla Charles PA-C February 26, 2024 8:44 AM [facility]11-20-20[facility] Miscellaneous Notes* Telephone Encounter - Cayla Charles PA-C - 02/26/2024 8:43 AM EST Spoke to patient Advised will r/s apts today with Dr. Bingham and Dr. Marcelino as the purpose would be to be seen together simultaneously Will look into April after her PET scan Will r/s her mammogram in [place] for the right side Pt agreeable Cayla Charles PA-C February 26, 2024 8:44 AM documented in this encounterNationwide Children'S Hospital11-19-2024 History of Present illness Narrative* Tatianna Crook [facility] - 02/25/2024 1:00 PM EST Primary Care Pharmacy Visit CC (Reason for Consult): (E11.9) Type 2 diabetes mellitus without complication, unspecified whetherlong term insulin use (HCC) (primary encounter diagnosis) Goal(s): [...] 113 02/09 193 109 02/10 172 145 02/11 175 153 02/12 147 181 02/13 183 [...] (3 mL) Inject 10 units once daily. CANTITRATE DOSE UP every 3-4 days by TWO UNITS until morning fasting sugar is 110-130. Then stay at that dose. 10 mL 3 Insulin [place], Disposable, (PEN NEEDLE) 32 gauge x 5/32 [...] tablet by mouth at bedtime as needed. Solar Pool TechnologiesTOUCH ULTRA PLUS TEST strp 1 Each two [...] with blood glucose test two times a day.Insulin Dep? No 200 Each 3 aspirin, enteric [...] 2 diabetes mellitus without complication, unspecified whether content assistant insulin use (HCC) -ICD9: 250.00, ICD10: E11.9 - Improving control - [...] 04/15/24 Next PharmD visit: 05/05/24 Tatianna Crook, BipinD, BCACP Primary Care Clinical Planer Hand documented in this encounterNationwide Children'S Hospital11-19-2024 [facility]Tr[facility]-12-[facility]24 History of Present illness Narrative* Bianca Le RN - 02/18/2024 9:40 AM EST Radiology Service Progress Note DATE OF SERVICE: [...] DATE: February 18, 2024 TIME: 9:58 AM * Jabari Hill MRI Tech - 02/18/2024 9:40 AM EST Radiology Service Progress Note PATIENT [...] PATIENT PRESENTS WITH AN IMPLANTABLE OR ATTACHED ELECTRIC MOTOR ASSEMBLER AND TESTER: No RADIOLOGY DEPARTMENT: MR; Exam(s) Completed: Chest: Breast PERIPHERAL IV DATA: Site assessment: Clean,Dry and Intact, Site disposition Discontinued SIGNED BY: HAYDEE Andrews February 18, 2024 10:28 AM documented in this encounterNationwide Children'S Hospital11-12-2024 NoteHNO ID: [id number] Author: BIANCA LE RN Service: Radiology Author [...] Sorto DATE: February 18, 2024 TIME: 9:58 [facility]11-12-2024 NoteHNO ID: [id number] Author: JABARI HILL MRI Tech Service: Radiology [...] PATIENT PRESENTS WITH AN IMPLANTABLE OR ATTACHED ELECTRIC MOTOR ASSEMBLER AND TESTER: No RADIOLOGY DEPARTMENT: MR; Exam(s) Completed: Chest: Breast PERIPHERAL IV DATA: Site assessment: Clean,Dry and Intact, Site disposition Discontinued SIGNED BY: HAYDEE Andrews February 18, 2024 10:28 [facility]10-30-2024 NoteHNO ID: [id number] Author: NINI RUSSELL MA Service: ? Author Type: Life Specialist Type: Progress Notes Filed: 02/05/2024 14:52 Note Text:[facility]10-30-2024 History of Present illness Narrative* Nini Russell MA - 02/05/2024 2:14 PM EDT Images from the original note were not included. * Daisy Titus APRN.CNP - 02/05/2024 2:00 PM EDT Images from the original note [...] 4 oz (regular pop) 4 oz Dinner [place] or Steak or Chicken OR pasta with protein on weekends pizza or fish sandwich OR saladwith protein sometimes take out/usually weekends only Snacks [...] (HCC) followed by Dr. Husam Hart in [place] PAST SURGICAL HISTORY Procedure Laterality Date ARTHRP ACETBLR/PROX FEM PROSTC AGRFT/ALGRFT Right 03/20/2019 Hip replacement, total ARTHRP KNE CONDYLE&PLATU MEDIAL&LAT COMPARTMENTS Left 02/2016 BIOPSY BREAST OPEN INCISIONAL Left 2007 [facility] benign pathology per patient BREAST RECONSTRUCTION Left [...] mouth once daily. TAKE AFTER A MEAL. Solar Pool TechnologiesTOUCH ULTRA PLUS TEST strp 1 Each two [...] with blood glucose test two times a day.Insulin Dep? No aspirin, enteric coated (ASPIRIN, ENTERIC [...] (MNT) Daisy Titus CNP documented in this encounterNationwide Children'S Hospital10-30-2024 NoteTr[facility]10-07-2024 History of Present illness Narrative* Adebayo Avila PA-C - 01/13/2024 2:06 PM EDT Images from the original note [...] (HCC) followed by Dr. Husam Hart in [place] PAST SURGICAL HISTORY Procedure Laterality Date ARTHRP ACETBLR/PROX FEM PROSTC AGRFT/ALGRFT Right 03/20/2019 Hip replacement, total ARTHRP KNE CONDYLE&PLATU MEDIAL&LAT COMPARTMENTS Left 02/2016 BIOPSY BREAST OPEN INCISIONAL Left 2007 [facility] benign pathology per patient BREAST RECONSTRUCTION Left [...] with blood glucose test two times a day.Insulin Dep? No 200 Each 3 aspirin, enteric [...] extremity swelling, varices, edema, pallor, erythema Ms. oSrto has no difficulty arising out of a [...] improved from pre-operative state, and experiencingpain from low back and trochanteric bursitis on the right. PLAN: Continue home exercise program- low back stretching, Continue with activities as tolerated. Follow up will be in 1 year. If there are any questions or problems, patient instructed to call theoffice. Rx Drug Management: No prescription given at today's appointment. Adebayo Avila PA-C documented in this encounterNationwide Children'S Hospital10-07-2024 History of Present illness Narrative* Kodi Reed CT - 01/13/2024 1:30 PM EDT Radiology Service Progress Note PATIENT [...] PATIENT PRESENTS WITH AN IMPLANTABLE OR ATTACHED ELECTRIC MOTOR ASSEMBLER AND TESTER: No RADIOLOGY DEPARTMENT: General X-ray: Exam(s) Completed: Pelvis X-Ray: Pelvis with Hip Right and Wt.Bearing PERIPHERAL IV DATA: Not applicable SIGNED BY: SUDHIR Irvin January 13, 2024 1:56 PM documented in this encounterNationwide Children'S Hospital10-07-2024 NoteHNO ID: [id number] Author: KODI REED CT Service: Radiology Author [...] PATIENT PRESENTS WITH AN IMPLANTABLE OR ATTACHED ELECTRIC MOTOR ASSEMBLER AND TESTER: No RADIOLOGY DEPARTMENT: General X-ray: Exam(s) Completed: Pelvis X-Ray: Pelvis with Hip Right and Wt. Bearing PERIPHERAL IV DATA: Not applicable SIGNED BY: SUDHIR Irvin January 13, 2024 1:56 PMSelect [id number] History of Present illness Narrative* Ambreen Tatianna, [facility] - 01/07/2024 1:00 PM EDT Primary Care Pharmacy Visit CC (Reason for Consult): (E11.9) Type 2 diabetes mellitus without complication, unspecified whetherlong term insulin use (HCC) (primary encounter diagnosis) Goal(s): [...] been pretty active recently; gets in about [id number] steps/day Current DM Medications: Glipizide XL 5 [...] MRI Breast DEYVI Inject, intravenously, once for 1dose. No IV access, insert saline lock prior [...] with blood glucose test two times a day.Insulin Dep? No 200 Each 3 aspirin, enteric [...] 2 diabetes mellitus without complication, unspecified whether jail insulin use (HCC) -ICD9: 250.00, ICD10: E11.9 - Worsening control - [...] Tatianna Crook, BipinD, BCACP Primary Care Clinical Planer Hand documented in this encounterNationwide Children'S Hospital09-30-2024 Telephone encounter Note * Telephone Encounter - Bianca Addison RN - 01/06/2024 3:05 PM EDT Discussed regroup with Dr Bingham and meeting with Dr Marcelino regarding implant removal on Feb 25. Will have MRI the week prior at [place] on Feb 17. Pat verbalized understanding. No further questions. [facility]09-30-[facility] Miscellaneous Notes* Telephone Encounter - Bianca Addison RN - 01/06/2024 3:05 PM EDT Discussed regroup with Dr Bingham and meeting with Dr Marcelino regarding implant removal on Feb 25. Will have MRI the week prior at [place] on Feb 17. Pat verbalized understanding. No further questions. documented in this encounterNationwide Children'S Hospital09-30-2024 History of Present illness Narrative* Serena Carrasco, - 01/06/2024 10:18 AM EDT Diagnosis: 1) Breast cancer. HPI: The patient is a 63-year-old female who has a past medical history significant for hypertension and primary biliary cirrhosis. She is seen by her accounts receivable accountant approximately once a year and she has had stable findings. Most recent liver chemistries performed at [facility] on 01/10/2017 showed a total bilirubin of [...] Evidently she was on a trip to [place] about 2 1/2 years ago when she [...] greatest length). ER (clone 6F11) >95%, strong [place] (clone 16/1E2) >95%, strong Her-2Neu (clone CB11) [...] Previously performed (HER2) ERBB2 Status: Previously performed Scrapper Tumor Block: Specify: B3 Residual tumor burden: Tumor bed dimension #1: 8 mm Tumor bed dimension #2: 5 mm Overall tumor cellularity 50% Percentage in situ 3% Comment: Please see [id number] for the results of estrogen and progesterone receptors and HER2 studies. 3) [facility]. Metastatic disease. Had [...] was performed [facility] and compared to appropriate reactive controls. [...] everolimus second week April 2023. Was at [facility]. Had PET scan on 05/02. Demonstrated [...] discussed with the Patient or Patient's Authorized Scrapper. Asapplicable, any other physician, advance practice provider, medical student, or other health professional student that will be observing or involved in the sensitive examination for educational or training purposes was discussed with the Patient or Authorized Scrapper. The Patient or Authorized Scrapper has agreed to proceed with the sensitive [...] of the implant. The dermal lesion at 7o'clock smaller remains. Skin is mildly hypertrophic but no underlying mass. The scarred tissue in lateral inferior breast fold is again in the internal less prominent and softer than prior exam. ABDOMEN: The abdomen is nondistended. No organomegaly. No tenderness. Extremities: No swelling or edema. SKIN: No jaundice or rash. LABS: PET MD [facility] on 05/02/2023. Resolution of FDG avid mediastinal [...] internal mammary merlyn involvement) MX stage IIIC ER/NY positive, HER2 non overexpressed invasive ductal carcinoma of the right breast. -KPS is 100%. -PET scan indicated disease left chest wall and mediastinal lymph nodes. MRI brain negative. -Biopsy-proven disease recurrence left chest wall inferior and posterior to implant. -ER positive (99% strong staining intensity), [place] positive (2% with strong staining intensity), HER22+; nonamplified by FISH testing. 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 -MRI Breast 03/28/2023 demonstrated PD and therapy was rotated to Faslodex and Afinitor. Oncology at [facility] recommended exemestane with Afinitor. -Hyperglycemia from [...] which included preparing to see the patient, [id number] patient care, completing clinical documentation, obtaining and/or reviewing separately obtained history, performing a medically appropriate examination, counseling and educating the pat ient/family/caregiver, ordering medications, tests, or procedures, communicating with other HCPs (not separately reported), and communicating results to the patient/family/caregiver. Serena Carrasco DO documented in this encounterNationwide Children'S Hospital09-26-2024 Telephone encounter Note * Telephone Encounter - Pat Almonte - 01/02/2024 7:04 AM EDT [phone] RIGHT HIP PAIN NO SCHED FOR PROVIDER PLEASE CLL TO [facility] LAST SEEN 2021 Please call patient to set up an appointment with Adebayo Avila [facility]09-26-2024 Miscellaneous Notes* Telephone Encounter - Pat Almonte - 01/02/2024 7:04 AM EDT [phone] RIGHT HIP PAIN NO SCHED FOR PROVIDER PLEASE CLL TO [facility] LAST SEEN 2021 Please call patient to set up an appointment with Adebayo Avila documented in this encounterNationwide Children'S Hospital09-23-2024 History of Present illness Narrative* Jose Scott RT(Alis) - 12/30/2023 8:00 AM EDT RADIOLOGY SERVICE PROGRESS NOTE SERVICE DATE: 12/30/2023 [...] PATIENT PRESENTS WITH AN IMPLANTABLE OR ATTACHED ELECTRIC MOTOR ASSEMBLER AND TESTER: No CREATININE: Creatinine Date Value Ref Range [...] 0757 PATIENT DISCHARGED TO: Ambulatory patient, left [place] department area. A Diagnostic radioactive procedure has taken place, with no further precautions necessary other than routine body substance precautions. More information regarding radiation safety can be found usingthis link: [email or web address] SIGNATURE: PATRICIA Hou) PATIENT NAME: Pat Sorto DATE: December 30, 2023 TIME: 8:09 AM PAGER/CONTACT #: documented in this encounterNationwide Children'S Hospital09-23-2024 NoteHNO ID: [id number] Author: JOSE SCOTT RT(Alis) Service: Radiology Author Type: Technologist Type: Progress [...] PATIENT PRESENTS WITH AN IMPLANTABLE OR ATTACHED ELECTRIC MOTOR ASSEMBLER AND TESTER: No CREATININE: Creatinine Date Value Ref Range [...] 0757 PATIENT DISCHARGED TO: Ambulatory patient, left [place] department area. A Diagnostic radioactive procedure has taken place, with no further precautions necessary other than routine body substance precautions. More information regarding radiation safety can be found using this link: [email or web address]%[email or web address] SIGNATURE: RT Ameya(R) PATIENT NAME: Pat Sorto DATE: December 30, 2023 TIME: 8:09 AM PAGER[facility]CONTACT #:[id number] History of Present illness Narrative* Tatianna Crook, [facility] - 12/02/2023 11:30 AM EDT Primary Care Pharmacy Visit CC (Reason for Consult): (E11.9) Type 2 diabetes mellitus without complication, unspecified whetherlong term insulin use (HCC) (primary encounter diagnosis) (Z79.899) Medication management Goal(s): A1c <8% per consult Last Collaborating Provider Visit: 07/16/[address] Rivas Pat Sorto is a 63 year old [...] 135 11/26 157 11/25 152 11/24 123 18 148 /17 174 187 16 138 8/14 108 8/13 154 812 179 11 137 AVG 150 Past medical history reviewed. [...] with blood glucose test two times a day.Insulin Dep? No 200 Each 3 aspirin, enteric [...] 2 diabetes mellitus without complication, unspecified whether content assistant insulin use (HCC) -ICD9: 250.00, ICD10: E11.9 - Improving control - [...] patient request. Follow Up: Next PCP visit: 12/11/24 Next PharmD visit: 01/01/24 Tatianna Crook PharmD, BCACP Primary Care Clinical Planer Hand documented in this encounterNationwide Children'S Hospital08-13-2024 History of Present illness Narrative* Luann Clarke RT(R) - 11/19/2023 10:00 AM EDT Radiology Service Progress Note PATIENT NAME: [...] PATIENT PRESENTS WITH AN IMPLANTABLE OR ATTACHED ELECTRIC MOTOR ASSEMBLER AND TESTER: No RADIOLOGY DEPARTMENT: Ultrasound PERIPHERAL IV DATA: Not applicable SIGNED BY: Luann Clarke RDMS, T November 19, 2023 10:53 AM documented in this encounterNationwide Children'S Hospital08-13-2024 NoteHNO ID: [id number] Author: LUANN CLARKE RT(R) Service: ? Author [...] PATIENT PRESENTS WITH AN IMPLANTABLE OR ATTACHED ELECTRIC MOTOR ASSEMBLER AND TESTER: No RADIOLOGY DEPARTMENT: Ultrasound PERIPHERAL IV DATA: Not applicable SIGNED BY: Luann Clarke RDMS, RVT November 19, 2023 10:53 [facility]08-07-2024 Miscellaneous Notes* Telephone Encounter - Tatianna Crook RPh - 11/13/2023 3:27 PM EDT Rx sent Tatianna Crook PharmD, ZENAIDA Primary Care Clinical Planer Hand * Telephone Encounter - Navya Perez RN - 11/13/2023 2:28 PM EDT [facility] calling with request for new script for Glucometer. Patient's test strips werechanged to One Touch Ultra 2 and they need glucometer script to match. Pharmacist states okay to order generic meter. Pended. Navya Perez RN documented in this encounterNationwide Children'S Hospital08-07-2024 Telephone encounter Note * Telephone Encounter - Tatianna Crook RPh - 11/13/2023 3:27 PM EDT Rx sent Tatianna Crook PharmD, ZENAIDA Primary Care Clinical Planer Hand [facility] Work Phone: [phone]) 857-746008-07-2024 Telephone encounter Note* Telephone Encounter - Navya Perez RN - 11/13/2023 2:28 PM EDT [facility] [place] calling with request for new script for Glucometer. Patient's test strips werechanged to One Touch Ultra 2 and they need glucometer script to match. Pharmacist states okay to order generic meter. Pended. Navya Perez RN [facility]08-07-2024 Telephone encounter Note* Telephone Encounter - Karyn Muñoz - 11/13/2023 1:54 PM EDT Spoke with patient and scheduled. Karyn Muñoz [facility]08-07-2024 Miscellaneous Notes* Telephone Encounter - Karyn Muñoz - 11/13/2023 1:54 PM EDT Spoke with patient and scheduled. Karyn Muñoz * Telephone Encounter - Svetlana Kong LPN - 11/13/2023 1:11 PM EDT PSS- please contact patient to schedule RUQ US. Patient is expecting the call. Svetlana Kong LPN * Telephone Encounter - Serena Carrasco DO - 11/13/2023 12:55 PM EDT Filed. * Telephone Encounter - Svetlana Kong LPN - 11/13/2023 8:51 AM EDT Please file order. Patient is expecting a call to schedule. Svetlana Kong LPN * Telephone Encounter - Serena Carrasco DO - 11/12/2023 5:12 PM EDT Urine culture suggests resolving UTI. Since she was having right upper quadrant pain as part of thepresentation, recommend ultrasound liver and gallbladder. Please pend order. Diagnosis right upper quadrant pain documented in this encounterNationwide Children'S Hospital08-07-2024 Telephone encounter Note * Telephone Encounter - Svetlana Kong LPN - 11/13/2023 1:11 PM EDT PSS- please contact patient to schedule RUQ US. Patient is expecting the call. Svetlana Kong LPN [facility]08-07-2024 Telephone encounter Note* Telephone Encounter - Serena Carrasco DO - 11/13/2023 12:55 PM EDT Filed. [facility] Telephone encounter Note* Telephone Encounter - Svetlana Kong LPN - 11/13/2023 8:51 AM EDT Please file order. Patient is expecting a call to schedule. Svetlana Kong LPN [facility]08-06-2024 Telephone encounter Note* Telephone Encounter - Serena Carrasco DO - 11/12/2023 5:12 PM EDT Urine culture suggests resolving UTI. Since she was having right upper quadrant pain as part of thepresentation, recommend ultrasound liver and gallbladder. Please pend order. Diagnosis right upper quadrant pain [facility]08-[facility]-20[facility] History of Present illness Narrative* Serena Carrasco DO - 11/11/2023 8:51 AM EDT Diagnosis: 1) Breast cancer. HPI: The patient is a 63-year-old female who has a past medical history significant for hypertension and primary biliary cirrhosis. She is seen by her accounts receivable accountant approximately once a year and she has had stable findings. Most recent liver chemistries performed at [facility] on 01/10/2017 showed a total bilirubin of [...] Evidently she was on a trip to [place] about 2 1/2 years ago when she [...] greatest length). ER (clone 6F11) >95%, strong [place] (clone 16/1E2) >95%, strong Her-2Neu (clone CB11) [...] Previously performed (HER2) ERBB2 Status: Previously performed Scrapper Tumor Block: Specify: B3 Residual tumor burden: Tumor bed dimension #1: 8 mm Tumor bed dimension #2: 5 mm Overall tumor cellularity 50% Percentage in situ 3% Comment: Please see [id number] for the results of estrogen and progesterone receptors and HER2 studies. 3) Anastrozole on [facility] clinical trial. Stopped 08/2022. Metastatic disease. Had [...] was performed on block A1 [facility] and compared to appropriate reactive controls. [...] everolimus second week April 2023. Was at [facility]. Had PET scan on 05/02. Demonstrated [...] rhonchi. CARDIOVASCULAR: Rhythm is regular. BREAST: Kasie Lamb, COUTURIERE chaperoned. Left sided implant remains contracted. No longer able to appreciate the previous BB sized metastases along superior margin of the implant. The dermal lesion at 7o'clock smaller remains. Skin is mildly hypertrophic but [...] Abs Lymph 1.00 - 4.00 k/uL 1.94 Pettis% % 7.2 Abs Pettis <0.87 k/uL 0.67 Eosin% % 1.1 Abs Eosin <0.46 k/uL 0.10 Baso% % 0.6 Abs Baso <0.11 k/uL 0.06 Immature Gran % % 0.4 IMMATURE GRANS (ABS) <0.10 k/uL 0.04 NRBC /100 WBC 0.0 Absolute nRBC <0.01 k/uL <0.01 DTYPE Auto PET [facility] on 05/02/2023. Resolution of FDG avid [...] internal mammary merlyn involvement) MX stage IIIC ER/[place] positive, HER2 non overexpressed invasive ductal carcinoma of the right breast. -KPS is 100%. -PET scan indicated disease left chest wall and mediastinal lymph nodes. MRI brain negative. -Biopsy-proven disease recurrence left chest wall inferior and posterior to implant. -ER positive (99% strong staining intensity), [place] positive (2% with strong staining intensity), HER22+; nonamplified by FISH testing. 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 -MRI Breast 03/28/2023 demonstrated PD and therapy was rotated to Faslodex and Afinitor. At [facility] they recommended exemestane with Afinitor. Changes were made. -Exam today suggest continued response. -Hyperglycemia from Afinitor. -Recent UTI. Symptoms continued after course of Bactrim. Currently on Cipro. No longer having feveror chill. But still having some bladder symptoms. [...] which included preparing to see the patient, [id number] patient care, completing clinical documentation, obtaining and/or reviewing separately obtained history, performing a medically appropriate examination, counseling and educating the pat ient/family/caregiver, ordering medications, tests, or procedures, communicating with other HCPs (not separately reported), and communicating results to the patient/family/caregiver. Serena Carrasco DO documented in this encounterNationwide Children'S Hospital07-31-2024 Telephone encounter Note * Telephone Encounter - Svetlana Kong LPN - 11/06/2023 8:22 AM EDT Rx pended. Svetlana Kong LPN [facility]07-31-2024 Miscellaneous Notes* Telephone Encounter - Svetlana Kong LPN - 11/06/2023 8:22 AM EDT Rx pended. Svetlana Kong LPN documented in this encounterNationwide Children'S Hospital07-29-2024 Telephone encounter Note * Telephone Encounter - Kamala Morales LPN - 11/04/2023 10:54 AM EDT Detailed message left for patient. [facility]07-29-2024 Miscellaneous Notes* Telephone Encounter - Kamala Morales LPN - 11/04/2023 10:54 AM EDT Detailed message left for patient. * Telephone Encounter - Lisbet Pizano APRN.SONIDO - 11/04/2023 10:48 AM EDT I agree, her repeat urine still indicates infection. I would like to treat her with cipro for 10 days to ensure we get this resolved. * Telephone Encounter - Sulma Nettles LPN - 11/04/2023 10:37 AM EDT Patient calling she did her follow up urine sample, after completing her antibiotic rx on 10/31/2023. Patient is asking if she needs to be placed on stronger antibiotic? she can see her urine results on my chart, very abnormal results. Patient uses [facility] her pharmacy. Please advise documented in this encounterNationwide Children'S Hospital07-29-2024 Telephone encounter Note * Telephone Encounter - Lisbet Pizano APRN.CNP - 11/04/2023 10:48 AM EDT I agree, her repeat urine still indicates infection. I would like to treat her with cipro for 10 days to ensure we get this resolved. [facility]07-29-2024 Telephone encounter Note* Telephone Encounter - Sulma Nettles LPN - 11/04/2023 10:37 AM EDT Patient calling she did her follow up urine sample, after completing her antibiotic rx on 10/31/2023. Patient is asking if she needs to be placed on stronger antibiotic? she can see her urine results on my chart, very abnormal results. Patient uses [facility] for her pharmacy. Please advise [facility]07-24[facility] History of Present illness Narrative* Tatianna Crook [facility] - 10/30/2023 2:00 PM EDT Primary Care Pharmacy Visit CC (Reason for Consult): (E11.9) Type 2 diabetes mellitus without complication, unspecified whetherlong term insulin use (HCC) (primary encounter diagnosis) Goal(s): [...] 10/20 220 10/21 189 10/22 157 233 10/23 175 10/24 158 10/25 116 10/27 214 10/28 240 10/29 264 AVG 192 Past medical history reviewed. ALLERGIES Allergen Reactions Amoxicillin Rash rash arms trunk neck face, itching Chills Current Outpatient Medications Medication Sig Dispense Refill sulfamethoxazole-trimethoprim (BACTRIM DS) 800-160 mg per tablet Take 1 tablet by mouth two times aday for 7 days. 14 tablet 0 cyclobenzaprine [...] with blood glucose test two times a day.Insulin Dep? No 200 Each 3 sgsutgluiaVQJJK-imjowd-wqbaoxmcm (BMX 1:1:1) 1:1:1 liqd Take by mouth every 4 hours as needed (mucositis). Magic mouthwash PRN (Patient not taking: Reported on 10/23/2023) aspirin, enteric coated (ASPIRIN, ENTERIC COATED) 81 mg EC tablet Take 81 mg by mouth once daily. OGLFJYF-LGTQGCJQJ-DRSY ORAL Take 1 tablet by mouth once [...] 2 diabetes mellitus without complication, unspecified whether jail insulin use (HCC) -ICD9: 250.00, ICD10: E11.9 - Worsening control, likely [...] Tatianna Crook, PharmD, BCACP Primary Care Clinical Planer Hand documented in this encounterNationwide [facility]07-[facility] History of Present illness Narrative* Lisbet Pizano APRN.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 - 10/23/2023 1:07 PM EDT SUBJECTIVE Pat Sorto is a 63 year old female here today for acute concern. Chief Complaint Patient presents with: Fever: X 3 days, has chills, headache x 3 days, and cloudy urine x 1 month with frequency in the evenings, denies pain or hematuria, HPI Pat Sorto is a 63 year old female. She is an established patient of Jacinta Rivas MD. [facility] for acute concerns of fever, chills, headache, [...] with blood glucose test two times a day.Insulin Dep? No aspirin, enteric coated (ASPIRIN, ENTERIC [...] Take 1 tablet by mouth two times aday for 7 days. cyclobenzaprine (FLEXERIL) 10 mg tablet Take 1 tablet by mouth three times a day as needed for muscle spasm for up to 12 doses. (Patient not taking: Reported on 10/23/2023) jklyjgtgxvHWGOB-ilerif-oxpzowyhn (BMX 1:1:1) 1:1:1 liqd Take by mouth every 4 hours as needed (mucositis). Magic mouthwash PRN (Patient not taking: Reported on 10/23/2023) PAXTEPB-JFSOPKDXR-ECNQ ORAL Take 1 tablet by mouth once [...] Comment: Added automatically from request for surgery [id number] Stomatitis and Mucositis - 06/28/2017 Antineoplastic Chemotherapy [...] from today's visit and in agreement with treatmentplan. Questions answered. Agrees to call the office [...] as well as compliance with taking medications. Age- appropriate health preventative measures were discussed. Return if symptoms worsen or fail to improve, for Keep next scheduled appointment.. Lisbet Pizano APRN-SONIDO documented in this encounterNationwide [facility]07-[facility]24 Telephone encounter Note * Telephone Encounter - Karyn Truong RN - 10/23/2023 12:15 PM EDT Patient calls and states that for the past couple of days she has had fever and chills. Patient also reports that she has had a headache and that her urine is cloudy. Patient states that she has beendizzy at times and is worried about becoming dehydrated. Patient asking if she should get labs done? Advised patient that she needs to set up appointment for provider to evaluated. Patient scheduled today at 1 pm with Rosa. Karyn Truong RN [facility]07-17-2024 Miscellaneous Notes* Telephone Encounter - Karyn Truong RN - 10/23/2023 12:15 PM EDT Patient calls and states that for the past couple of days she has had fever and chills. Patient also reports that she has had a headache and that her urine is cloudy. Patient states that she has beendizzy at times and is worried about becoming dehydrated. Patient asking if she should get labs done? Advised patient that she needs to set up appointment for provider to evaluated. Patient scheduled today at 1 pm with Rosa. Karyn Truong RN documented in this encounterNationwide [facility]07-12-[facility] History of Present illness Narrative* Severino Sauer APRN.CNP - 10/18/2023 5:30 PM EDT This note was created using Silent Circleriter. Subjective Pat Sorto is a 63 year old female. HPI Pt has occaisonal flares of neck pain She denies any known trauma. She thinks she may have slept onit wrong. Review of Systems Musculoskeletal: Positive for [...] activities as tolerated and use intermittent warm compressesfor relief. - CYCLOBENZAPRINE 10 MG TABLET Severino Sauer APRN.SONIDO documented in this encounterNationwide [facility]07-02-[facility] History of Present illness Narrative* Tatianna Crook RP - 10/08/2023 10:00 AM EDT Primary Care Pharmacy Visit CC (Reason for Consult): (E11.9) Type 2 diabetes mellitus without complication, unspecified whetherlong term insulin use (HCC) (primary encounter diagnosis) Goal(s): [...] with blood glucose test two times a day.Insulin Dep? No 200 Each 3 ptcrfnrlfbTTQVW-shoonw-udtprjaip (BMX 1:1:1) 1:1:1 liqd Take by mouth every 4 hours as needed (mucositis). Magic mouthwash PRN aspirin, enteric coated (ASPIRIN, ENTERIC COATED) 81 mg EC tablet Take 81 mg by mouth once daily. DUJAQZP-XHMZZJIXH-UZMQ ORAL Take 1 tablet by mouth once [...] 2 diabetes mellitus without complication, unspecified whether content assistant insulin use (HCC) -ICD9: 250.00, ICD10: E11.9 - Improving control - [...] 03/18/24 Next PharmD visit: 10/30/23 Tatianna Crook, Last, BCACP Primary Care Clinical Planer Hand documented in this encounterNationwide [facility]06-[facility] Telephone encounter Note * Telephone Encounter - Svetlana Kong LPN - 09/11/2023 4:18 PM EDT Pathology results requested from Dr. Del Cid's office. Svetlana Kong LPN [facility]06-05-2024 Miscellaneous Notes* Telephone Encounter - Svetlana Kong LPN - 09/11/2023 4:18 PM EDT Pathology results requested from Dr. Del Cid's office. Svetlana Kong LPN documented in this encounterNationwide [facility]05-30-[facility] History of Present illness Narrative* Tatianna Crook [facility] - 09/05/2023 10:00 AM EDT Primary Care Pharmacy Visit CC (Reason for Consult): (E11.9) Type 2 diabetes mellitus without complication, unspecified whetherlong term insulin use (HCC) (primary encounter diagnosis) Goal(s): [...] as needed for symptoms of sugars too highor too low. Diagnosis: E11.65, Insulin: No 200 Each 3 Lancets (ONETOUCH ULTRASOFT LANCETS) Use with blood glucose test two times a day. Insulin Dep? No E11.65 200 Each 3 glipiZIDE (GLUCOTROL XL) 5 mg 24 hr tablet Take 1 tablet by mouth once daily. 30 tablet 2 blood sugar diagnostic (BLOOD GLUCOSE TEST) test strip Use with blood glucose test two times a day.Insulin Dep? No 200 Each 3 isroqehqilTNYAI-uphmvm-xmcfthsgg (BMX 1:1:1) 1:1:1 liqd Take by mouth every 4 hours as needed (mucositis). Magic mouthwash PRN aspirin, enteric coated (ASPIRIN, ENTERIC COATED) 81 mg EC tablet Take 81 mg by mouth once daily. ZCISMVH-SEZJJZLHQ-AYSK ORAL Take 1 tablet by mouth once [...] 2 diabetes mellitus without complication, unspecified whether content assistant insulin use (HCC) -ICD9: 250.00, ICD10: E11.9 - Improving control - [...] visit: 03/18/24 Next PharmD visit: 10/08/23 Tatianna Crook, Last Primary Care Clinical Planer Hand I spent a total of 30 minutes on the date of the service which included preparing to see the patient, musc-pt-blcn patient care, completing clinical documentation, counseling and educating the patient/family/caregiver, and ordering medications, tests, or procedures. documented in this encounterNationwide [facility]05-22-2024 Telephone encounter Note * Telephone Encounter - Karyn Muñoz - 08/28/2023 10:36 AM EDT Referral faxed and confirmation scanned into Goalbook. Karyn Muñoz [facility]05-22-2024 Miscellaneous Notes* Telephone Encounter - Karyn Muñoz - 08/28/2023 10:36 AM EDT Referral faxed and confirmation scanned into Goalbook. Karyn Muñoz * Telephone Encounter - Svetlana Kong LPN - 08/28/2023 10:07 AM EDT DX: evaluation in a patient undergoing therapy with cardiotoxic agents Please make sure echo reports, last OV note and a copy of this phone note are sent with referral. Thank you. Svetlana Kong LPN * Telephone Encounter - Karyn Muñoz - 08/28/2023 9:51 AM EDT Spoke with patient to schedule. First available cardiology appointment with [facility] isn't untilApril 2024. Patient requested appointment with [facility]. Please advise on specific diagnosis for the referral so it can be included in the fax to [facility]. Karyn Muñoz * Telephone Encounter - Svetlana Kong LPN - 08/28/2023 9:36 AM EDT Patient is aware of all information. PSS- please contact patient to assist in scheduling with cardiology; she is willing to see someone here or [facility]. Svetlana Kong LPN * Telephone Encounter - Serena Carrasco DO - 08/27/2023 4:53 PM EDT Her echocardiogram essentially shows stable findings. Mild decrease in heart pumping action when compared to last echo in 2018, but currently the same when compared to echo in December 2017. Howevergiven her history of the heart issue from previous chemotherapy, I would like her to see cardiologyto make sure we are managing her blood pressure and cardiac issues appropriately. Serena Carrasco DO documented in this encounterNationwide [facility]05-22-2024 Telephone encounter Note * Telephone Encounter - Svetlana Kong LPN - 08/28/2023 10:07 AM EDT DX: evaluation in a patient undergoing therapy with cardiotoxic agents Please make sure echo reports, last OV note and a copy of this phone note are sent with referral. Thank you. Svetlana Kong LPN [facility]05-22-2024 Telephone encounter Note* Telephone Encounter - Karyn Muñoz - 08/28/2023 9:51 AM EDT Spoke with patient to schedule. First available cardiology appointment with [facility] isn't untilApril 2024. Patient requested appointment with [facility]. Please advise on specific diagnosis for the referral so it can be included in the fax to [facility]. Karyn Muñoz [facility]05-22-2024 Telephone encounter Note* Telephone Encounter - Svetlana Kong LPN - 08/28/2023 9:36 AM EDT Patient is aware of all information. PSS- please contact patient to assist in scheduling with cardiology; she is willing to see someone here or [facility]. Svetlana Kong LPN [facility]05-21-2024 Telephone encounter Note* Telephone Encounter - Serena Carrasco DO - 08/27/2023 4:53 PM EDT Her echocardiogram essentially shows stable findings. Mild decrease in heart pumping action when compared to last echo in 2018, but currently the same when compared to echo in December 2017. Howevergiven her history of the heart issue from previous chemotherapy, I would like her to see cardiologyto make sure we are managing her blood pressure and cardiac issues appropriately. Serena Carrasco DO [facility]05-20-2024 Telephone encounter Note* Telephone Encounter - Kasie Lamb LPN - 08/26/2023 11:02 AM EDT Pt. Notified of results, voiced understanding. Kasie Lamb LPN [facility]05-20-2024 Miscellaneous Notes* Telephone Encounter - Kasie Lamb LPN - 08/26/2023 11:02 AM EDT Pt. Notified of results, voiced understanding. Kasie Lamb LPN * Telephone Encounter - Serena Carrasco DO - 08/25/2023 1:33 PM EDT Good news. Can let her know the PET scan shows continued response to the cancer. documented in this encounterNationwide Children'[facility]05-19-2024 Telephone encounter Note * Telephone Encounter - Serena Carrasco DO - 08/25/2023 1:33 PM EDT Good news. Can let her know the PET scan shows continued response to the cancer. [facility]05-[facility] History of Present illness Narrative* Myla Do RT(R) - 08/19/2023 7:00 AM EDT RADIOLOGY SERVICE PROGRESS NOTE SERVICE DATE: 08/19/2023 [...] PATIENT PRESENTS WITH AN IMPLANTABLE OR ATTACHED ELECTRIC MOTOR ASSEMBLER AND TESTER: No CREATININE: Creatinine Date Value Ref Range [...] 712 PATIENT DISCHARGED TO: Ambulatory patient, left [place] department area. A Diagnostic radioactive procedure has taken place, with no further precautions necessary other than routine body substance precautions. More information regarding radiation safety can be found usingthis link: [email or web address] SIGNATURE: RT Deonna(Alis) PATIENT NAME: Pat Sorto DATE: August 19, 2023 TIME: 7:21 AM PAGER/CONTACT #: documented in this encounterNationwide Children'[facility] Hospital05-08-2024 Telephone encounter Note * Telephone Encounter - Rea Banda - 08/14/2023 10:30 AM EDT Patient returned call and scheduled. Rea Liang [facility]05-08-2024 Miscellaneous Notes* Telephone Encounter - Rea Banda - 08/14/2023 10:30 AM EDT Patient returned call and scheduled. Rea Liang * Telephone Encounter - Karyn Muñoz 08/12/2023 12:01 PM EDT Fasting Lipid with QMO CBC/CMP scheduled on 8.5 as directed. Left message for patient to return call. When patient calls, please advise below and schedule QMO CBC/CMP and follow up w/ Dr. Carrasco/Luis Alberto in 3 months. Karyn Muñoz * Telephone Encounter - Serena Carrasco DO - 08/12/2023 8:36 AM EDT For now, can schedule for monthly CBC/CMP and follow up OV with or Luis Alberto in about 3 months. May have to change of course depending on PET results. Serena Carrasco DO * Telephone Encounter - Svetlana Kong LPN - 08/12/2023 8:14 AM EDT Patient aware of all information. PSS- please schedule patient for a fasting lipid panel 11/11/2023 @ 8:30. Patient is aware of appointment date and time. Dr. Carrasco- patient has a PET scan today and an echo 08/20/2023. She is asking when a follow up visit should be scheduled? Svetlana Kong LPN * Telephone Encounter - Svetlana Kong LPN - 08/12/2023 8:10 AM EDT ----- Message from Serena Carrasco DO sent at 08/10/2023 9:59 AM EDT ----- Cholesterol and triglycerides increased. Recommend cutting back on sweets and fatty foods. Also, check in with Dr. Rivas if cholesterol medication indicated. Plan to repeat fasting lipid panel in 3 months. documented in this encounterNationwide Children'[facility]05-07-2024 History of Present illness Narrative* Paneccasio, Tatianna, [facility] - 08/13/2023 9:00 AM EDT Primary Care Pharmacy Visit CC (Reason for Consult): (E11.9) Type 2 diabetes mellitus without complication, unspecified whetherlong term insulin use (HCC) (primary encounter diagnosis) Goal(s): [...] as needed for symptoms of sugars too highor too low. Diagnosis: E11.65, Insulin: No 200 Each 3 Lancets (ONETOUCH ULTRASOFT LANCETS) Use with blood glucose test two times a day. Insulin Dep? No E11.65 200 Each 3 glipiZIDE (GLUCOTROL XL) 5 mg 24 hr tablet Take 1 tablet by mouth once daily. 30 tablet 2 blood sugar diagnostic (BLOOD GLUCOSE TEST) test strip Use with blood glucose test two times a day.Insulin Dep? No 200 Each 3 mqfomyifnwEZTEA-tftyvl-gjtrgzytk (BMX 1:1:1) 1:1:1 liqd Take by mouth every 4 hours as needed (mucositis). Magic mouthwash PRN aspirin, enteric coated (ASPIRIN, ENTERIC COATED) 81 mg EC tablet Take 81 mg by mouth once daily. PQNXBLI-PKPFYTPFA-GHRL ORAL Take 1 tablet by mouth once [...] 2 diabetes mellitus without complication, unspecified whether jail insulin use (HCC) -ICD9: 250.00, ICD10: E11.9 - Uncontrolled - Start semaglutide (Ozempic) 0.25 mg once weekly x4 weeks, then increase to 0.5 mg once weekly. Reviewed appropriate medication administration; will send demo video link via [employer] - Continue glipizide XL 5 mg once [...] visit: 03/18/24 Next PharmD visit: 09/05/23 Tatianna Crook, Last Primary Care Clinical Planer Hand documented in this encounterNationwide [facility]05-06-2024 Telephone encounter Note * Telephone Encounter - Karyn Muñoz - 08/12/2023 12:01 PM EDT Fasting Lipid with QMO CBC/CMP scheduled on 8.5 as directed. Left message for patient to return call. When patient calls, please advise below and schedule QMO CBC/CMP and follow up w/ Dr. Carrasco/Luis Alberto in 3 months. Karyn Muñoz [facility]05-06-2024 Telephone encounter Note* Telephone Encounter - Serena Carrasco DO - 08/12/2023 8:36 AM EDT For now, can schedule for monthly CBC/CMP and follow up OV with or Luis Alberto in about 3 months. May have to change of course depending on PET results. Serena Carrasco DO [facility]05-06-20[facility] Telephone encounter Note* Telephone Encounter - Svetlana Kong LPN - 08/12/2023 8:14 AM EDT Patient aware of all information. PSS- please schedule patient for a fasting lipid panel 11/11/2023 @ 8:30. Patient is aware of appointment date and time. Dr. Carrasco- patient has a PET scan today and an echo 08/20/2023. She is asking when a follow up visit should be scheduled? Svetlana Kong LPN [facility]05-[facility] Telephone encounter Note* Telephone Encounter - Svetlana Kong LPN - 08/12/2023 8:10 AM EDT ----- Message from Serena Carrasco DO sent at 08/10/2023 9:59 AM EDT ----- Cholesterol and triglycerides increased. Recommend cutting back on sweets and fatty foods. Also, check in with Dr. Rivas if cholesterol medication indicated. Plan to repeat fasting lipid panel in 3 months. [facility]04[facility]29[facility] Telephone encounter Note* Telephone Encounter - Cathy Burr APRN.FORM BLOCK MAKER - 08/05/2023 4:43 PM EDT She has questions about whether Ozempic is appropriate for her. Recently switched from metformin toglipizide. Routing to pharmacist and PCP for review. [facility] Work Phone: [phone]) 949-333404-29-2024 Miscellaneous Notes* Telephone Encounter - Cathy Burr APRN.CNS - 08/05/2023 4:43 PM EDT She has questions about whether Ozempic is appropriate for her. Recently switched from metformin toglipizide. Routing to pharmacist and PCP for review. documented in this encounterNationwide Children'S Hospital04-29-2024 History of Present illness Narrative* Serena Carrasco, - 08/05/2023 10:29 AM EDT Diagnosis: 1) Breast cancer. HPI: The patient is a 63-year-old female who has a past medical history significant for hypertension and primary biliary cirrhosis. She is seen by her accounts receivable accountant approximately once a year and she has had stable findings. Most recent liver chemistries performed at [facility] on 01/10/2017 showed a total bilirubin of [...] Evidently she was on a trip to [place] about 2 1/2 years ago when she [...] greatest length). ER (clone 6F11) >95%, strong NY (clone 16/1E2) >95%, strong Her-2Neu (clone CB11) [...] Previously performed (HER2) ERBB2 Status: Previously performed Scrapper Tumor Block: Specify: B3 Residual tumor burden: Tumor bed dimension #1: 8 mm Tumor bed dimension #2: 5 mm Overall tumor cellularity 50% Percentage in situ 3% Comment: Please see [id number] for the results of estrogen and progesterone [...] was performed on block A1 at the [facility] and compared to appropriate reactive controls. [...] everolimus second week April 2023. Was at [facility]. Had PET scan on 05/02. Demonstrated [...] insomnia. Chronic issue for which she used totake trazodone but that had not been helping [...] implant remains contracted. No longer appreciating BB sizedmetastases along superior margin of the implant. 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 -KPS is 100%. -PET scan indicated disease left chest wall and mediastinal lymph nodes. MRI brain negative. -Biopsy-proven disease recurrence left chest wall inferior and posterior to implant. -ER positive (99% strong staining intensity), NY positive (2% with strong staining intensity), HER22+; nonamplified by FISH testing. 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 -MRI Breast 03/28/2023 demonstrated PD and therapy was rotated to Faslodex and Afinitor. At [facility] they recommended exemestane with Afinitor. Changes were made. -PET scan results from [facility] on 05/02/2023. Resolution of FDG avid mediastinal adenopathy. Stable right axillary lymph node suspicious for reactive lymph node. Stable FDG uptake in the posteriortissues of the left breast prosthesis as well [...] and if after a couple nights does notseem to help then increase to 2 tablets [...] necessary. Serena Carrasco DO documented in this encounterNationwide Children'S Hospital04-17-2024 Miscellaneous Notes* Telephone Encounter - Svetlana Kong LPN - 07/24/2023 9:58 AM EDT Was only for 30 days and PCP discontinued on 07/16/2023. Svetlana Kong LPN documented in this encounterNationwide Children'S Hospital04-12-2024 Miscellaneous Notes* Telephone Encounter - Jacinta Rivas MD - 07/19/2023 10:54 PM EDT The following approved medication requests have [...] E11.65 Jacinta Rivas MD documented in this encounterNationwide Children'S Hospital04-11-2024 History of Present illness Narrative* Tatianna Crook, [facility] - 07/18/2023 1:30 PM EDT Primary Care Pharmacy Visit CC (Reason for Consult): (E11.9) Type 2 diabetes mellitus without complication, unspecified whetherlong term insulin use (HCC) (primary encounter diagnosis) Goal(s): [...] chemo medications prior. Follows with oncologist at [facility]. States not sure what duration of [...] steak with baked potato, broccoli, side salad, porkchop sometimes, hamburger without bun with broccoli Snacks [...] up to 30 days. 90 tablet 0 PYFUVAT-YYGOBCIUA-KSKI ORAL Take 1 tablet by mouth once daily. exemestane (AROMASIN) 25 mg tablet Take 1 tablet by mouth once daily. TAKE AFTER A MEAL. 30 tablet 5 dexAMETHasone (DECADRON) 0.5 mg/5 mL oral liquid Take 10 mL by mouth four times daily. (swish for 2minutes and spit out) 560 mL 5 losartan [...] for nausea/vomiting(For chemotherapy induced nausea). FOR NAUSEA 30 tablet [...] Adherence: denies missed doses. Rx coverage: Payor: [employer] / Plan: BLUE ACCESS PPO / Product [...] 2 diabetes mellitus without complication, unspecified whether jail insulin use (HCC) -ICD9: 250.00, ICD10: E11.9 - Uncontrolled. A1c not [...] visit: 03/18/24 Next PharmD visit: 08/22/23 Tatianna Crook PharmD Primary Care Clinical Planer Hand I spent a total of 60 minutes on the date of the service which included preparing to see the patient, pvkl-vz-vljl patient care, completing clinical documentation, counseling and educating the patient/family/caregiver, and ordering medications, tests, or procedures. documented in this encounterNationwide Children'S Hospital04-11-2024 Instructions* Patient Instructions* Tatianna Crook RPh - 07/18/2023 1:30 PM EDT Switch glyburide to glipizide - take glipizide XL 5 mg once daily documented in this encounterNationwide Children'S Hospital04-09-2024 Instructions* Patient Instructions* Jacinta Rivas MD - 07/16/2023 11:59 AM EDT May increase glyburide to taking 2 pills per day. documented in this encounterNationwide Children'S Hospital04-09-2024 History of Present illness Narrative* Jacinta Rivas MD - 07/16/2023 11:31 AM EDT This note was created using Silent Circleriter. Subjective Pat Sorto is a 63 year [...] (HCC) followed by Dr. Husam Hart in [place] Current Outpatient Medications Medication Sig glyBURIDE 2.5 [...] as needed for up to 30 days. RFAICTX-NPMAMBCPM-SWOR ORAL Take 1 tablet by mouth once daily. exemestane (AROMASIN) 25 mg tablet Take 1 tablet by mouth once daily. TAKE AFTER A MEAL. dexAMETHasone (DECADRON) 0.5 mg/5 mL oral liquid Take 10 mL by mouth four times daily. (swish for 2minutes and spit out) losartan (COZAAR) 25 mg tablet Take 1 tablet by mouth once daily. everolimus, antineoplastic, (AFINITOR) 10 mg tablet Take 1 tablet (10 mg) by mouth once daily. ondansetron (ZOFRAN) 8 mg tablet Take 1 tablet by mouth every 8 hours as needed for nausea/vomiting(For chemotherapy induced nausea). FOR NAUSEA pantoprazole DR [...] diabetes mellitus with hyperglycemia (HCC) E11.65 CONSULT TOPHARMACY Reviewed symptoms and labs done in ER.Consult [...] indicated. Jacinta Rivas MD documented in this encounterNationwide Children'S Hospital04-08-2024 History of Present illness Narrative* VijayjovannaBobbi, PT - 07/15/2023 1:08 PM EDT Images from the original note were not included. Episode Visit Count: 1 Therapist That Will Accept/Oversee The Plan Of Care: Vijayjovanna Bobbi Start of Care Date: 07/15/23 Onset Date: [...] presents with impairments in edema management, overall function,range of motion, tissue tenderness, and soft tissue [...] normal golf swing without restriction or pain/tightness. Forrest in home exercise program. Patient will decrease pain rating by 2 points to meet minimal clinical important difference for numeric pain rating scale. Patient will increase active ROM of L shoulder to 175deg flex and no pain/pulling/tightness at end range of all motions to allow pt to to improve performance of ADLs and golf swing for recreation andwork. Perform recreational activities;reaching overhead;lifting; and golfing without pain. Patient able to verbalize skin care and lymphedema risk reductions Patient/family able to verbalize all pertinent aspects of CDT Patient/family independent with donning/doffing compression garment and proper wearing schedule andcare of garment(s). Patient Goals: Reduced swelling/tightness in forearm. Any kind of improvements in L shld ROM. Planned Interventions, Frequency, and Duration: Current Frequency: 1x/week Duration: 8 weeks Total Number of Visits Planned: 8 Planned Treatment Interventions: Therapeutic exercise (56479), Manual therapy (73856), Self-halfway management (65383), Patient/Family/Caregiver Education PLAN FOR NEXT VISIT: Assess [...] past few months. Had PT in past forL shld ROM. 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 Pt with all [...] 1200 Bobbi Vanegas PT documented in this encounterNationwide Children'S Hospital04-03-2024 Miscellaneous Notes* Telephone Encounter - Susana Mix RN - 07/10/2023 5:01 PM EDT See PCP Dyllanhart response, 07/10/23. Patient notified of that message. Susana Mix RN * Telephone Encounter - Susana Mix RN - 07/10/2023 3:11 PM EDT Images from the original note were not included. Patient returned call and wishes to cancel the 07/11 appt that was available to her for ER follow-up;will be going out of town -Saturday. Pt agreeable to keep appt for 07/15. Patient also asking for PCP response to her message sent today (as copied below). Reports she rosi cancer medications as well and is concerned [...] team -Saturday. Any other options? Thanks Pat [phone] Please call patient with PCP response. Thank you. * Telephone Encounter - Leandra Mathew LPN - 07/10/2023 3:01 PM EDT Left message for patient to return call to office. Rescheduled patient for 07/11 with PCP for follow up. If this does not work for patient please cancel. Left appointment for 07/15 as well until we hear back from patient on which appt she would prefer. * Telephone Encounter - Jacinta Rivas MD - 07/09/2023 10:46 PM EDT Noted July eGFR was >60; prior eGFR 40 to 53 range Has 07/15 ER follow up appointment scheduled. See how patient is doing to see if need to see sooner and get set up with teaching to do glucometerfor monitoring sugars or if already knows how to check her own sugars. No orders for glucometer andsupplies in our orders so can send if needs to get with insurance coverage. * Telephone Encounter - Wes Saha MD - 07/08/2023 8:26 PM EDT Called by Dr. Nelson at [facility] ER for patient presenting with symptoms of [...] additional testing, and management. documented in this encounterNationwide Children'S Hospital04-03-2024 Miscellaneous Notes* Addendum Note - Jacinta Rivas MD - 07/10/2023 4:44 PM EDTAddended by: JACINTA RIVAS on: 07/10/2023 04:44 PM Modules accepted: Orders * Telephone Encounter - Susana Mix RN - 07/10/2023 3:16 PM EDT Please see 07/08/23 phone encounter. Will close this encounter. Susana Mix RN documented in this encounterNationwide Children'S Hospital04-01-2024 History of Present illness Narrative* Carla Forbes APRN.SONIDO - 07/08/2023 3:19 PM EDT This note was created using Silent Circler[employer]. Subjective Pat Sorto is a 63 year [...] (HCC) followed by Dr. Husam Hart in [place] PAST SURGICAL HISTORY Procedure Laterality Date ARTHRP ACETBLR/PROX FEM PROSTC AGRFT/ALGRFT Right 03/20/2019 Hip replacement, total ARTHRP KNE CONDYLE&PLATU MEDIAL&LAT COMPARTMENTS Left 02/2016 BIOPSY BREAST OPEN INCISIONAL Left 2007 [facility] benign pathology per patient BREAST RECONSTRUCTION Left 2019 fat graft/implant exchange DELIVERY ONLY 1996,1993 , low transverse MASTECTOMY HX Left 2018 AND with immediate reconstruction ALLERGIES Amoxicillin MEDICATIONS [...] as needed for up to 30 days. [id number]-[id number]-UINI ORAL Take 1 tablet by mouth once daily. exemestane (AROMASIN) 25 mg tablet Take 1 tablet by mouth once daily. TAKE AFTER A MEAL. dexAMETHasone (DECADRON) 0.5 mg/5 mL oral liquid Take 10 mL by mouth four times daily. (swish for 2minutes and spit out) losartan (COZAAR) 25 mg tablet Take 1 tablet by mouth once daily. everolimus, antineoplastic, (AFINITOR) 10 mg tablet Take 1 tablet (10 mg) by mouth once daily. ondansetron (ZOFRAN) 8 mg tablet Take 1 tablet by mouth every 8 hours as needed for nausea/vomiting(For chemotherapy induced nausea). FOR NAUSEA pantoprazole DR [...] one week. Reports chills, nausea, fatigue, LLQ painand one episode of hematuria. - Temp 99.4, [...] Declines EMS Referred to ED TEACHING PROVIDER (Physician/PA/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) NOTE OF PERSONAL INVOLVEMENT IN CARE: I have personally seen and examined the patient and performed the medical decision-making components. I have reviewed the Advanced Practice Registered Nurse (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) Student's documentation and verified the findings in the note as written. Any additions or changes are noted in bold/italics. Signature: Carla Forbes Date: 07/08/2023 Time: 3:57 PM documented in this encounterNationwide Children'S Hospital04-01-2024 Discharge summary Author Jaquan Nelson [facility] July 08, 2023 8:33pm Note Date/Time July 08, 2023 6:46 pm [facility] Medical Records Department [address] [place] [address] Emergency Department Summary 07/08/23 MR#: [id number] Acct: [id number] Name: PAT SORTO Rep #:[id number] : 1960 63 From: Jaquan Nelson DO [...] or flank pain. No diarrhea or constipation. [facility] Medical History Abnormal mammogram of left breast [...] 77.5 H Lymph % (Auto) 12.7 L Pettis % (Auto) 8.5 Eos % (Auto) 0.6 [...] Clarity Cloudy Urine pH 6.0 Ur Specific [place] 1.015 Urine Protein 100 H Urine Glucose [...] D2] 50,000 UNIT capsule 1.25 mg PO cyanocobalamin (vitamin B-12) 1,000 MCG capsule 1,000 [...] your Primary Care Provider. Call [facility] ([phone]) or report to the closest Emergency Room. Call 911 if necessary. 04/01/24 2033 <Electronically signed by Jaquan Nelson DO> Cosigner Signature (if applicable): CC: Dr. Jacinta Rivas MD ~ Signed [facility] Work Phone: 1(878) 969-509804-01-2024 Miscellaneous Notes* Telephone Encounter - Kasie Lamb [...] sugars. Serena Carrasco DO documented in this encounterNationwide Children'S Hospital03-29-2024 History of Present illness Narrative* Michell David - 07/05/2023 8:57 AM EDT Pat Sorto 1960 07/05/2023 Diagnosis: 1) Breast cancer. HPI: The patient is a 63-year-old female who has a past medical history significant for hypertension and primary biliary cirrhosis. She is seen by her accounts receivable accountant approximately once a year and she has had stable findings. Most recent liver chemistries performed at [facility] on 01/10/2017 showed a total bilirubin of [...] Evidently she was on a trip to [place] about 2 1/2 years ago when she [...] greatest length). ER (clone 6F11) >95%, strong NY (clone 16/1E2) >95%, strong Her-2Neu (clone CB11) [...] hemangioma. Brain MRI was normal. Was at [facility]. Had PET scan on 05/02. Demonstrated [...] Previously performed (HER2) ERBB2 Status: Previously performed Scrapper Tumor Block: Specify: B3 Residual tumor burden: Tumor bed dimension #1: 8 mm Tumor bed dimension #2: 5 mm Overall tumor cellularity 50% Percentage in situ 3% Comment: Please see [id number] for the results of estrogen and progesterone receptors and HER2 studies. 3) [facility] Stopped [facility]/2022. Metastatic disease. Had [...] [facility] and compared to appropriate reactive controls. [...] Recent return from golf [place] [facility]. Notes sensitivity and blistering of sun exposed [...] internal mammary merlyn involvement) MX stage IIIC ER/NY positive, HER2 non overexpressed invasive ductal carcinoma of the right breast. -KPS is 100%. -PET scan indicated disease left chest wall and mediastinal lymph nodes. MRI brain negative. -Biopsy-proven disease recurrence left chest wall inferior and posterior to implant. -ER positive (99% strong staining intensity), [place] positive (2% with strong staining intensity), HER22+; nonamplified by FISH testing. 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 -MRI Breast 03/28/2023 demonstrated PD as outlined above. -Therapy was rotated to Faslodex and Afinitor tour. At [facility] they recommended exemestane withAfinitor. Changes were made. -Tolerating exemestane fairly well. Some recurrence of musculoskeletal symptoms but these are not as prominent as they were initially with her AI therapy in the adjuvant setting. -Reviewed PET scan results from [facility] on 05/02/2023. Resolution of FDG avid [...] to monitor (N17.9) LAXMI (acute kidney injury) ([facility]) Assessment: -Initially observed when she was having severe diarrhea from abemaciclib. -Improved after hydration and dose reducing Verzenio. -Persisted on ribociclib. -labs generally stable today Plan: -Continue to monitor Hypokalemia - k sent today - continue to monitor - RTC in about 4 weeks with labs Michell David APRN.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 I spent a total of 30 minutes on the date of the service which included preparing to see the patient, [id number] patient care, completing clinical documentation, performing a [...] evaluation of this patient. documented in this encounterNationwide Children'S Hospital03-27-2024 Miscellaneous Notes* Telephone Encounter - Bobbi Zarate - 07/03/2023 8:20 AM EDT Patient informed * Telephone Encounter - Karyn Muñoz - 07/03/2023 8:05 AM EDT Left message for patient to return call. When she calls, please advise that Dr. Carrasco would like tosee her at 8:40 instead of 8:20 on 07/04. Karyn Muñoz documented in this encounterNationwide Children'S Hospital02-27-2024 Miscellaneous Notes* Telephone Encounter - Kasie [...] go to that place up there in [place] to get the sleeve. Rea Liang * Telephone Encounter - Serena Carrasco DO - 06/03/2023 4:32 PM EST I placed an order for physical therapy for lymphedema evaluation. I put it in the AVS but had not placed the order at time of OV. Is there now. Serena Carrasco DO documented in this encounterNationwide Children'S Hospital02-16-2024 Miscellaneous Notes* Telephone Encounter - Bobbi Zarate - 05/24/2023 4:20 PM EST Patient is calling requesting that prescription go to [facility] in [place] due to complications at pharm. * Telephone Encounter - Michell David - 05/24/2023 12:23 PM EST done * Telephone Encounter - Svetlana Kong LPN - 05/24/2023 11:53 AM EST Please resend Rx to [facility] pharmacy. [facility] is unable to compound meds. Svetlana Kong LPN documented in this encounterNationwide Children'S Hospital02-16-2024 Miscellaneous Notes* Addendum Note - Svetlana [...] Michell, Can you please send this since Luis Alberto is out? Svetlana Kong LPN documented in this encounterNationwide Children'S Hospital02-05-2024 Miscellaneous Notes* Addendum Note - Serena [...] PM EST Call to [facility], , spoke FE Sanders. He provided Dr. Rayo cell number. Given to Dr. Carrasco. Nicki Malhotra RN * Telephone Encounter - Lisa Malhotra RN - 05/07/2023 1:55 PM EST Attempted to call Carla Spears at number provided below. Rings normal and then rings busy. Nicki Malhotra RN Spoke with patient, she will send chart message through [facility]'s [employer] to ask for an alternative number to [...] a while I get a message from [employer] saying the call cannot be completed as dialed please try again later. Perhaps we can get an alternate number? Serena Carrasco DO * Telephone Encounter - Lisa Malhotra RN - 05/03/2023 8:55 AM EST [facility] Care Coordination FOLLOW-UP NOTE Patient identified by name and date of . YES Spoke to patient Summary: (Reason for follow-up) Patient states she is in [place] at [facility]. She is seeing another oncologist, Dr. [...] physicians. Dr. Knox nurse: Carla Spears RN. [phone] Care Coordination Plan: as above. Lisa Malhotra RN May 03, 2023 documented in this encounterNationwide Children'S Hospital02-01-2024 History of Present illness Narrative* Chantale [...] bulk with another kit. Shipped today via [employer] [phone] Patient had been unsure if she was willing to submit tissue or blood until today for study. Patientwas agreeable and discussed referral for phase 1 trials. Chantale Bundy RN [phone] [facility]12-08-2023 Miscellaneous Notes* Telephone Encounter - Serenity Stern RN - 03/15/2023 2:33 PM EST See [email or web address] message 02/22/[address] [facility]12-05-2023 Miscellaneous Notes* Telephone Encounter - Bianca Addison RN - 03/12/2023 3:32 PM EST Reached out to Pat to let her know that I have schedule an MRI and Dr Marcelino on 03/28 at [facility]. Pat verbalized understanding. No further questions. documented in this [facility]11-30-2023 Miscellaneous Notes* Telephone Encounter - Dena Lechuga RN - 03/07/2023 3:39 PM EST Called patient, no answer. Left a VM on patient identified VM stating to push fluids, take imodium as needed, call this nurse with any worsening/new symptoms, follow-up as scheduled. Dena Lechuga RN * Telephone Encounter - eDna Lechuga RN - 03/07/2023 9:27 AM EST [facility] Care Coordination FOLLOW-UP NOTE Patient identified by [...] Diarrhea? Serena Carrasco DO documented in this encounterNationwide Children'S Hospital11-28-2023 Nurse Note* Kasie Lamb LPN - 03/05/2023 9:22 AM EST Faslodex injection administered,bilateral buttocks, tolerated well, no immediate adverse reactions noted. Kasie Lamb LPN documented in this encounterNationwide Children'S Hospital11-13-2023 History of Present illness Narrative* Myla Springer - 02/18/2023 12:47 PM EST VIRTUAL VISIT PROGRESS NOTE This is a virtual visit using [employer] Zoom Video Visit. It required patient- provider interaction for the medical decision making as documented below. I have communicated my name and active licensure. The patient's identity and physical location wereverified at the time of this visit. Either the patient or their legal senior customer service representative has been informed of the risks [...] (HCC) followed by Dr. Husam Hart in [place] PAST SURGICAL HISTORY Procedure Laterality Date ARTHRP ACETBLR/PROX FEM PROSTC AGRFT/ALGRFT Right 03/20/2019 Hip replacement, total ARTHRP KNE CONDYLE&PLATU MEDIAL&LAT COMPARTMENTS Left 02/2016 BIOPSY BREAST OPEN INCISIONAL Left 2007 [facility] benign pathology per patient BREAST RECONSTRUCTION Left [...] which included counseling and educating the patient/family/caregiver GLORIA Hoffally signed by Myla Springer at 02/18/2023 12:57 PM EST documented in this encounterNationwide Children'S Hospital11-07-2023 Miscellaneous Notes* Telephone Encounter - Nuzhat Beauchamp LPN - 02/12/2023 4:06 PM EST Referral information and xray faxed to number provided. * Telephone Encounter - Cathy Burr APRN.FORM BLOCK MAKER - 02/12/2023 3:53 PM EST OK, see below * Telephone Encounter - Janee Ray LPN - 02/12/2023 10:15 AM EST Pt is requesting a referral to [facility] for recurring neck pain. She has an appt with them 02/14/23. Pt also requests her thoracic xray from 02/04/23 be faxed as well. Janee Ray LPN documented in this encounterNationwide Children'S Hospital10-23-2023 History of Present illness Narrative* Josh Major, RT(R) - 01/28/2023 10:00 AM EDT [...] 1004 PATIENT DISCHARGED TO: Ambulatory patient, left PR department area. A Diagnostic radioactive procedure has taken place, with no further precautions necessary other than routine body substance precautions. More information regarding radiation safety can be found usingthis link: [email or web address] SIGNATURE: RT Darlin(Alis) PATIENT NAME: Pat Sorto DATE: January 28, 2023 TIME: 10:10 AM PAGER/CONTACT #: documented in this encounterNationwide Children'S Hospital10-13-2023 Miscellaneous Notes* Telephone Encounter - Kasie Lamb LPN - 01/18/2023 11:05 AM EDT See refill encounter. Kasie Lamb LPN * Telephone Encounter - Bobbi Zarate - 01/18/2023 10:42 AM EDT Patient called requesting refill of Lisinopril 20-12.5 mg. Patient requesting to be sent to [facility] in [place]. Unable to find medication on med list. Pt called PCP. She stated Dr. Carrasco refills. Patient going out of town tomorrow. Requesting to citrus picker today. documented in this encounterNationwide Children'S Hospital10-11-2023 Miscellaneous Notes* Telephone Encounter - Edilia [...] PET scan as schedule for 01/28/23. Edilia Hughes * Telephone Encounter - Meri Buchanan - [...] with any questions/concerns. * Telephone Encounter - Luis Alberto Raman APRN.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 - 01/09/2023 12:25 PM EDT Discussed plan with Dr. Carrasco. Please add PET scan soon-Meraz. Pt. aware this has been ordered. Also, per Dr. Carrasco add cystatin lab with each lab draw. Thank you. Luis Alberto Raman APRN.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 documented in this encounterNationwide Children'S Hospital10-03-2023 Miscellaneous Notes* Telephone Encounter - Mino [...] listed in Care Team tab: Yes BESSY Holley-S documented in this encounterNationwide Children'S Hospital09-22-2023 Miscellaneous Notes* Telephone Encounter - Karyn Muñoz - 12/28/2022 10:20 AM EDT Spoke with patient and scheduled. Karyn Muñoz * Telephone Encounter - Анна Peck LPN - 12/27/2022 4:54 PM EDT Pt notified. OK to schedule. Анна Pcek LPN * Telephone Encounter - Serena Carrasco DO - 12/27/2022 4:46 PM EDT Can let her know the alternative test for kidney function was good. Okay to proceed with Zometa. My signature documented in this encounterNationwide Children'S Hospital09-20-2023 History of Present illness Narrative* Sulma Renee, FE - 12/26/2022 2:57 PM EDT Zometa held per order Dr Carrasco. Labs drawn documented in this encounterNationwide Children'S Hospital09-12-2023 Miscellaneous Notes* Telephone Encounter - Meri [...] . Serena Carrasco DO documented in this encounterNationwide Children'S Hospital09-12-2023 Miscellaneous Notes* Telephone Encounter - Rea [...] and 01/10? Thanks Rea documented in this encounterNationwide Children'S Hospital09-11-2023 History of Present illness Narrative* Serena Carrasco DO - 12/17/2022 4:02 PM EDT Diagnosis: 1) Breast cancer. HPI: The patient is a 62-year-old postmenopausal female who has a past medical history significant for hypertension and primary biliary cirrhosis. She is seen by her accounts receivable accountant approximately once ayear and she has had stable findings. Most recent liver chemistries performed at [facility] on 01/10/2017 showed a total bilirubin of [...] Evidently she was on a trip to [place] about 2 1/2 years ago when she [...] greatest length). ER (clone 6F11) >95%, strong [place] (clone 16/1E2) >95%, strong Her-2Neu (clone CB11) [...] Previously performed (HER2) ERBB2 Status: Previously performed Scrapper Tumor Block: Specify: B3 Residual tumor burden: Tumor bed dimension #1: 8 mm Tumor bed dimension #2: 5 mm Overall tumor cellularity 50% Percentage in situ 3% Comment: Please see [id number] for the results of estrogen and progesterone receptors and HER2 studies. 3) [facility] Stopped 08/2022. Metastatic disease. Had [...] was performed [facility] and compared to appropriate reactive controls. [...] rhonchi. CARDIOVASCULAR: Rhythm is regular. 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 Left sided implant remains contracted. Stable less [...] Abs Lymph 1.00 - 4.00 k/uL 2.03 Pettis% % 13.9 Abs Pettis <0.87 k/uL 0.70 Eosin% % 1.2 Abs [...] internal mammary merlyn involvement) MX stage IIIC ER/NY positive, HER2 non overexpressed invasive ductal carcinoma of the right breast. -KPS is 100%. -PET scan indicated disease left chest wall and mediastinal lymph nodes. MRI brain negative. -Biopsy-proven disease recurrence left chest wall inferior and posterior to implant. -ER positive (99% strong staining intensity), [place] positive (2% with strong staining intensity), HER22+; [...] which included preparing to see the patient, [id number] patient care, completing clinical documentation, obtaining and/or reviewing separately obtained history, performing a medically appropriate examination, counseling and educating the pat ient/family/caregiver, ordering medications, tests, or procedures, communicating with other HCPs (not separately reported), and communicating results to the patient/family/caregiver. Serena Carrasco DO documented in this encounterNationwide Children'S Hospital09-07-2023 Nurse Note* Kasie Lamb LPN - 12/13/2022 9:44 AM EDT faslodex injection administered,bilateral buttocks, tolerated well, no immediate adverse reactions noted. Kasie Lamb LPN documented in this encounterNationwide Children'S Hospital08-23-2023 Miscellaneous Notes* Telephone Encounter - Meri [...] and interstitial lung disease/pneumonitis. Monitor adherence. The [place] [employer] On[employer] hepatitis B virus [...] to call if unable to comply. Dena Lechuga, RN ORAL ANTI-CANCER AGENTS EDUCATION patient called [...] minutes Dena Lechuga RN documented in this encounterNationwide Children'S Hospital08-10-2023 History of Present illness Narrative* Анна Peck LPN - 11/15/2022 9:23 AM EDT Pt here for injection of Faslodex. Given IM in bilateral buttocks. Pt tolerated well. Анна Peck LPN documented in this encounterNationwide Children'S Hospital08-03-2023 Miscellaneous Notes* Telephone Encounter - Анна [...] hydration. Serena Carrasco DO documented in this encounterNationwide Children'S Hospital08-02-2023 Miscellaneous Notes* Telephone Encounter - Анна Peck LPN - 11/07/2022 3:33 PM EDT Pt notified that Slow-Mag is OTC and Kisqali will be shipped to her. pt voices understanding. Анна Peck LPN * Telephone Encounter - Bobbi Zarate - 11/07/2022 2:54 PM EDT Relayed message to patient. Scheduled Lab as requested. Patient is asking that Slow Mag be sent to [facility] in [place]. Patient also asking if rx for Kisqali [...] her diarrhea has resolved. documented in this encounterNationwide [facility] Hospital08-02-2023 Miscellaneous Notes* Telephone Encounter - Karyn [...] diarrhea? Serena Carrasco DO documented in this encounterNationwide Children'S Hospital08-01-2023 Miscellaneous Notes* Telephone Encounter - Tye Daniel, [facility] - 11/06/2022 2:07 PM EDT Images from the original note were not included. [facility] received prescription(s) for Kisqali from Dr. Carrasco's office. Benefits investigation was conducted, indicating that a prior authorization is not required at this time per patient's plan with [employer]. However, s/he is required to [facility] to fill this medication. Will queue prescription(s) to go to designated specialty pharmacy. For reference, their pharmacy phone number is . No further action by [facility]. Tye Daniel, PharmD Clinical Pharmacist, Oncology [facility] P: , F: Pool: P [facility] ONCOL[facility] Pool #: [id number] documented in this encounterNationwide Children'S Hospital08-01-2023 History of Present illness Narrative* Charlene Kincaid RN - 11/06/2022 1:31 PM EDT EKG completed per phone note. documented in this encounterNationwide Children'S Hospital07-27-2023 Miscellaneous Notes* Telephone Encounter - Lisa Malhotra RN - 11/01/2022 4:26 PM EDT Patient aware of message, labs, EKG and new Rx. Questions answered and agreeable with plan. Nicki Malhotra RN * Telephone Encounter - Serena Carrasco DO - 11/01/2022 4:08 PM EDT Going to rotate therapy from [facility] to [facility]. Rx sent to specialty pharmacy. When she is here on Saturday, add labs filed under this encounter and also obtain baseline EKG. Serena Carrasco DO documented in this encounterNationwide Children'S Hospital07-20-2023 Miscellaneous Notes* Telephone Encounter - Bianca Addison RN - 10/25/2022 12:44 PM EDT Spoke with Pat regarding when she should return to see Dr Bingham. Advised that per Dr Bingham, Willie will reach out to us and let us know when we need to see her back. Pat verbalized understanding. No further questions. documented in this encounterNationwide Children'S Hospital07-13-2023 Nurse Note* Kasie Moraes LPN - 10/18/2022 9:37 AM EDT faslosex injection administered, bilateral buttocks,tolerated well, no immediate adverse reactions noted. Kasie Moraes LPN documented in this encounterNationwide Children'S Hospital06-26-2023 Miscellaneous Notes* Telephone Encounter - Serena [...] Malhotra RN - 10/01/2022 3:59 PM EDT [place] Care Coordination FOLLOW-UP NOTE Patient identified [...] RN October 01, 2022 documented in this encounterNationwide Children'S Hospital06-20-2023 Nurse Note* Karyn Kirk RN - 09/25/2022 12:38 PM EDT No hydration. Continue liberal hydration. She can restart Verzenio and Nicki will call her about use of Imodium. She should call us if diarrhea not controlled. Per Dr. Carrasco Pt aware to re-start. documented in this encounterNationwide Children'S Hospital06-19-2023 Miscellaneous Notes* Telephone Encounter - Karyn [...] stopped? Serena Carrasco DO documented in this encounterNationwide Children'S Hospital06-15-2023 Miscellaneous Notes* Telephone Encounter - Kasie [...] Way. Serena Carrasco DO documented in this encounterNationwide Children'S Hospital06-15-2023 History of Present illness Narrative* Chantale [...] interm. MATTY Bruner, RN Clinical Research Nurse [phone] documented in this encounterNationwide Children'S Hospital06-15-2023 History of Present illness Narrative* Serena Carrasco, DO - 09/20/2022 10:54 AM EDT Diagnosis: 1) Breast cancer. HPI: The patient is a 62-year-old postmenopausal female who has a past medical history significant for hypertension and primary biliary cirrhosis. She is seen by her accounts receivable accountant approximately once ayear and she has had stable findings. Most recent liver chemistries performed at [facility] on 01/10/2017 showed a total bilirubin of [...] Evidently she was on a trip to [place] about 2 1/2 years ago when she [...] greatest length). ER (clone 6F11) >95%, strong [place] (clone 16/1E2) >95%, strong Her-2Neu (clone CB11) [...] Previously performed (HER2) ERBB2 Status: Previously performed Scrapper Tumor Block: Specify: B3 Residual tumor burden: Tumor bed dimension #1: 8 mm Tumor bed dimension #2: 5 mm Overall tumor cellularity 50% Percentage in situ 3% Comment: Please see [id number] for the results of estrogen and progesterone receptors and HER2 studies. 3[facility] Stopped 08/2022. Metastatic disease. Had [...] was performed on block [facility]1 [facility] and compared to appropriate reactive controls. [...] Lymph 1.00 - 4.00 k/uL 1.89 2.28 Pettis% % 4.7 5.8 Abs Pettis <0.87 k/uL 0.27 0.39 Eosin% % 3.3 [...] internal mammary merlyn involvement) MX stage IIIC ER/NY positive, HER2 non overexpressed invasive ductal carcinoma [...] implant. -ER positive (99% strong staining intensity), [place] positive (2% with strong staining intensity), HER22+; [...] which included preparing to see the patient, [id number] patient care, completing clinical documentation, obtaining and/or reviewing separately obtained history, performing a medically appropriate examination, counseling and educating the pat ient/family/caregiver, ordering medications, tests, or procedures, communicating with other HCPs (not separately reported), and communicating results to the patient/family/caregiver. Serena Carrasco DO documented in this encounterNationwide Children'S Hospital06-05-2023 Miscellaneous Notes* Telephone Encounter - Svetlana [...] scheduled. Serena Carrasco DO documented in this encounterNationwide Children'S Hospital06-01-2023 Nurse Note* Kasie Moraes LPN - 09/06/2022 9:08 AM EDT Faslodex injection administered, bilateral tolerated well, no immediate adverse reactions noted. Kasie Moraes LPN documented in this encounterNationwide Children'S Hospital05-13-2023 Miscellaneous Notes* Telephone Encounter - Eliz Bingham MD - 08/18/2022 1:16 PM EDT spoke with patient- reviewed situation reviewed MRI questions answered will follow in the background. Eliz Bingham MD 1:16 PM documented in this encounterNationwide Children'S Hospital05-12-2023 Miscellaneous Notes* Telephone Encounter - Rea [...] Please advise. Karyn Muñoz documented in this encounterNationwide Children'S Hospital05-12-2023 Miscellaneous Notes* Telephone Encounter - Serena Carrasco DO - 08/17/2022 8:40 AM EDT The following approved medication requests have been transmitted electronically. Requested Prescriptions Signed Prescriptions Disp Refills abemaciclib (VERZENIO) 150 mg tablet 60 tablet 5 Sig: Take 1 tablet (150 mg) by mouth twice daily. Authorizing Provider: SERENA CARRASCO DO * Telephone Encounter - Tye Daniel [facility] - 08/17/2022 6:07 AM EDT Prior authorization was NOT required for Verzenio. Plan Name: [employer] [place] reference number: N/A Approval Dates: N/A However, s/he is required to use [facility] to fill this medication. Will queue prescription(s) to go to designated specialty pharmacy. For reference, their pharmacy phone number is [phone]. No further action by [facility] Specialty. Tye Daniel, PharmD Clinical Pharmacist, Oncology [facility] P: , F: Pool: P [facility] Pool #: [id number] documented in this encounterNationwide Children'S Hospital05-11-2023 History of Present illness Narrative* Daily Singleton - 08/16/2022 5:39 PM EDT [facility] received prescription(s) for Verzenio from Dr. Carrasco's office. Benefits investigation was conducted, indicating that a prior authorization is not required at this time per patient's plan with [employer]. Prescriptions will now be processed through [facility] Special[facility] for determination of next steps. Daily Singleton documented in this encounterNationwide Children'S Hospital05-11-2023 Nurse Note* Kasie Moraes LPN - 08/16/2022 4:29 PM EDT Injection not given . Pt. Will be out of town the week thru therefore decided not to administer since she would not be available until 09/04 and loading regiman would be interrupted. Per Dr. Corwin Moraes LPN documented in this encounterNationwide Children'S Hospital05-09-2023 NoteHNO ID: [id number] Author: Nini Mansifeld RN Service: ? Author Type: Registered Nurse Type: Nursing Progress Note Filed: 08/14/2022 11:08 AM Note Text: 1105 pt given written and verbal dc instructions. Pt verbalized understanding.[facility] [id number] NoteHNO ID: [id number] Author: Kam Dangelo MD Service: ? Author [...] Kam Dangelo MD 10:11 AM August 14, 2022[facility] [id number] NoteHNO ID: [id number] Author: Gumaro Bey APRN.FISH BONING MACHINE FEEDER Service: Anesthesiology Author Type: Nurse Gas Refrigerator Servicer Type: Anesthesia Procedure Notes Filed: 08/14/2022 9:21 AM Note Text: ANESTHESIOLOGY PROCEDURE NOTE Airway General Information Procedure Start Time/Medication Administration: 08/14/2022 9:09 AM Patient location during procedure: OR Timeout Performed Pre-procedure: timeout performed Consent Obtained: Yes Patient identity confirmed: arm band, care sales team manager and patient Staffing FISH BONING MACHINE FEEDER: Gumaro Bey APRN.FISH BONING MACHINE FEEDER Performed by: PAMELA Indications and Patient Condition Indications for airway management: anesthesia Preoxygenated: yes anesthesia circuit Patient position: sniffing Method: asleep Difficult Mask: No Final Airway Details Final airway type: supraglottic airway Number of attempts at approach: 1 Final Supraglottic Airway: IGEL Size 5 Seal Adequate: yes Airway not difficult Comments Teeth and lips in preanesthetic condition. SIGNATURE: Gumaro Bey APRN.FISH BONING MACHINE FEEDER PATIENT NAME: Pat Sorto DATE: August 14, 2022 TIME: 9:20 AM CSN: [id number] [facility] Procedure Date: 08/14/2022 [...] Procedure Start: 9:12:46 AM Procedure End: 9:30:06 [facility]05-09-2023 History of Present illness Narrative* Kam [...] AM August 14, 2022 documented in this encounterNationwide Children'S Hospital05-08-2023 Miscellaneous Notes* Telephone Encounter - Cori Cox RN - 08/13/2022 2:39 PM EDT Call to patient to discuss upcoming bronchoscopy as scheduled at [facility] on 08/14/[address] Dangelo. Patient verified that they received instructions via PAT visit. Arrival time provided by [facility] per patient. Instructed patient they must have a responsible person to bring them home as they will receive general anesthesia. Provided a review of [facility] Bronchoscopy procedure NPO instructions: - No solid food after midnight. - You may have 12 ounces of clear liquids (water, clear juices such as apple juice or gatorade, carbonated beverages, clear tea, black coffee, jello) until 2 hours before scheduled arrival at facility. Current medications reviewed with patient. Anticoagulants: None Cori Cox MSN, RN, CCRN-K Interventional Pulmonary Outpatient Clinical Coordinator Respiratory Friend documented in this encounterNationwide Children'S Hospital05-08-2023 History and physical note * Kam Dangelo MD - 08/13/2022 10:51 AM EDT Images from the original note were not included. Interventional Pulmonary Consultation Date of Service: August 13, 2022 Patient: Pat Sorto Medical Record: [id number] Primary Care Physician: Jacinta Rivas MD Referring [...] (HCC) followed by Dr. Husam Hart in [place] Past Surgical History PAST SURGICAL HISTORY Procedure Laterality Date ARTHRP ACETBLR/PROX FEM PROSTC AGRFT/ALGRFT Right 03/20/2019 Hip replacement, total ARTHRP KNE CONDYLE&PLATU MEDIAL&LAT COMPARTMENTS Left 02/2016 BIOPSY BREAST OPEN INCISIONAL Left 2007 [facility] benign pathology per patient BREAST RECONSTRUCTION Left [...] 2022 Time: 10:51 AM documented in this encounterNationwide Children'S Hospital05-04-2023 Instructions* Patient Instructions* Jonathan Ku PA-C - 08/09/2022 2:22 PM EDT PATIENT PREOPERATIVE INSTRUCTIONS Kam Dangelo MD has scheduled you for your procedure at [facility]: [phone] --[phone] [address]. Please check in on the1st floor at [...] Procedures: - YOU MUST HAVE A RESPONSIBLE BUSINESS TRANSFORMATION MANAGER TAKE YOU HOME. A CHIEF LENDING OFFICER OR ROPE SILICA MACHINE OPERATOR CANNOT BE MADE A RESPONSIBLE BUSINESS TRANSFORMATION MANAGER. - We recommend that a responsible person [...] Advance Directive, please fax a copy to [phone] or email to for it to be [...] day. Jonathan Ku PA-C documented in this encounterNationwide Children'S Hospital05-04-2023 History and physical note * Jonathan [...] manage symptoms. Procedure scheduled on 08/14/2022 at [place]. REVIEW OF SYSTEMS: General: No weight loss, [...] > 1 time per night or hematuria. PATIENT SAFETY SITTER: Negative for abnormal vaginal bleeding, abnormal vaginal [...] (HCC) followed by Dr. Husam Hart in [place] PAST SURGICAL HISTORY Procedure Laterality Date ARTHRP ACETBLR/PROX FEM PROSTC AGRFT/ALGRFT Right 03/20/2019 Hip replacement, total ARTHRP KNE CONDYLE&PLATU MEDIAL&LAT COMPARTMENTS Left 02/2016 BIOPSY BREAST OPEN INCISIONAL Left 2007 [facility] benign pathology per patient BREAST RECONSTRUCTION Left [...] or any previous visit (from the past 89340 hour(s)). Assessment Patient has the following medical [...] (HCC) Assessment: s/p masectomy, radiation and chemo 2019 Lumbar degenerative disc disease Assessment: no previous [...] Well, with treated comorbid disease STOP-Bang Score: Kayla loudly Has or is being treated for high blood pressure Patient over 50 years old Denies feeling tired, fatigued, or sleepy during the daytime Has not been observed to stop breathing or choking/gasping during sleep BMI less than or equal to 35 kg/m^2 Does not have a large neck Non-male patient STOP-Bang Score: 3 [id number] Score: Age: <65 Sex: female CHF history: No Hypertension history: Yes Stroke/TIA/thromboembolism history: No Vascular disease history: No Diabetes history: No [id number] Score: 2 ASA Class: 2 ANESTHESIA FINDINGS: [...] 10:03 AM PAGER/CONTACT #: documented in this encounterNationwide Children'S Hospital05-01-2023 NoteHNO ID: [id number] Author: Kam Dangelo MD Service: ? Author [...] TAYLA Dangelo MD August 06, 2022 11:23 [facility]05-01-2023 History of Present illness Narrative* aKm Dangelo MD - 08/06/2022 11:22 AM EDT [...] 06, 2022 11:23 AM documented in this encounterNationwide Children'S Hospital04-27-2023 History of Present illness Narrative* RT [...] SIGNATURE: Luann Clarke RDMS, RVT - Jose ([facility]) PATIENT NAME: Pat Sorto DATE: August 02, 2022 TIME: 3:14 PM documented in this encounterNationwide Children'S Hospital04-26-2023 History of Present illness Narrative* Serena Carrasco, DO - 08/01/2022 2:55 PM EDT Diagnosis: 1) Breast cancer. HPI: The patient is a 61-year-old postmenopausal female who has a past medical history significant for hypertension and primary biliary cirrhosis. She is seen by her accounts receivable accountant approximately once ayear and she has had stable findings. Most recent liver chemistries performed at [facility] on 01/10/2017 showed a total bilirubin of [...] Evidently she was on a trip to [place] about 2 1/2 years ago when she [...] greatest length). ER (clone 6F11) >95%, strong [place] (clone 16/1E2) >95%, strong Her-2Neu (clone CB11) [...] Previously performed (HER2) ERBB2 Status: Previously performed Scrapper Tumor Block: Specify: B3 Residual tumor burden: Tumor bed dimension #1: 8 mm Tumor bed dimension #2: 5 mm Overall tumor cellularity 50% Percentage in situ 3% Comment: Please see [id number] for the results of estrogen and progesterone receptors and HER2 studies. 2) Radiation to left chest wall/axilla and supraclavicular area completed 01/02/2018. 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 Current therapy: 1) Anastrozole on clinical trial. Presents for ongoing oncologic management. Interim history: Rotated to Cymbalta at the time of last visit for [...] was performed [facility] block [facility] and compared to appropriate reactive controls. [...] edema. SKIN: No jaundice or rash. NEUROLOGIC: senior budget analyst II-XII are grossly intact. No focal motor [...] internal mammary merlyn involvement) MX stage IIIC ER/NY positive, HER2 non overexpressed invasive ductal carcinoma [...] which included preparing to see the patient, [id number] patient care, completing clinical documentation, obtaining and/or reviewing separately obtained history, performing a medically appropriate examination, counseling and educating the pat ient/family/caregiver, ordering medications, tests, or procedures, communicating with other HCPs (not separately reported), independently interpreting results (not separately reported), and communicating results to the patient/family/caregiver. Serena Carrasco DO documented in this encounterNationwide Children'S Hospital04-26-2023 Nurse Note* Bianca Addison RN - 08/01/2022 10:07 AM EDT Patient was referred by: regroup Did patient bring outside records to appt [...] work: No Is the patient active on [employer] Yes Electronically Signed By: Bianca Addison RN [...] (HCC) followed by Dr. Husam Hart in [place] PAST SURGICAL HISTORY Procedure Laterality Date ARTHRP ACETBLR/PROX FEM PROSTC AGRFT/ALGRFT Right 03/20/2019 Hip replacement, total ARTHRP KNE CONDYLE&PLATU MEDIAL&LAT COMPARTMENTS Left 02/2016 BIOPSY BREAST OPEN INCISIONAL Left 2007 [facility] benign pathology per patient BREAST RECONSTRUCTION Left 2019 fat graft/implant exchange DELIVERY ONLY 1996,1993 , low transverse MASTECTOMY HX Left 2018 AND with immediate reconstruction Social History Tobacco Use Smoking status: Never Smokeless tobacco: Never Vaping Use Vaping Use: Never used Substance Use Topics Alcohol use: Yes Comment: occasional Drug use: No documented in this encounterNationwide Children'S Hospital04-26-2023 History of Present illness Narrative* Eliz Bingham MD - 08/01/2022 10:00 AM EDT Images from the original note were not included. regroup to discuss punch biopsy results from 07/19/22: Skin, left breast, punch biopsy: -Consistent with metastatic breast adenocarcinoma, see comment. ER 99 NY 2 Her 2 (FISH) non amplified Dr. [...] recall breast history: Presented in 2018 with ER/NY positive, HER2 negative left LABC (worked up at [place]) [id number] Stage IIIC Neoadjuvant course (Masci): ddACx4, Taxol [...] which included preparing to see the patient, dmxe-tf-awkx patient care, completing clinical documentation, obtaining and/or reviewing separately obtained history, performing a medically appropriate examination, counseling and educating the pat ient/family/caregiver, ordering medications, tests, or procedures, communicating with other HCPs (not separately reported), independently interpreting results (not separately reported), communicatingresults to the patient/family/caregiver, and care coordination (not separately reported). Eliz Bingham MD documented in this encounterNationwide Children'S Hospital04-13-2023 History of Present illness Narrative* Eliz [...] it was placed. She is scheduled with [facility] in January for a RODNEY HISTORY: Presented in 2018 with ER/NY positive, HER2 negative left LABC (worked up at [place]) [id number] Stage IIIC Neoadjuvant course (Masci): ddACx4, Taxol [...] regional adenopathy IMPRESSION: 2018: Clinical Stage IIIC ER/NY positive, HER2 negative [facility] s/p MRM with LV-bypass and implant October [...] which included preparing to see the patient, wvta-[id number] patient care, completing clinical documentation, obtaining and/or reviewing separately obtained history, performing a medically appropriate examination, counseling and educating the pat ient/family/caregiver, ordering medications, tests, or procedures, communicating with other HCPs (not separately reported), independently interpreting results (not separately reported), communicatingresults to the patient/family/caregiver, and care coordination (not separately reported). Eliz Bingham MD documented in this encounterNationwide Children'S Hospital04-13-2023 Nurse Note* Bianca Addison RN - [...] (HCC) followed by Dr. Husam Hart in [place] PAST SURGICAL HISTORY Procedure Laterality Date ARTHRP ACETBLR/PROX FEM PROSTC AGRFT/ALGRFT Right 03/20/2019 Hip replacement, total ARTHRP KNE CONDYLE&PLATU MEDIAL&LAT COMPARTMENTS Left 02/2016 BIOPSY BREAST OPEN INCISIONAL Left 2007 [facility] benign pathology per patient BREAST RECONSTRUCTION Left 2018 fat graft/implant exchange DELIVERY ONLY 1996,1993 , low transverse MASTECTOMY HX Left 2017 AND with immediate reconstruction Social History Tobacco Use Smoking status: Never Smokeless tobacco: Never Vaping Use Vaping Use: Never used Substance Use Topics Alcohol use: Yes Comment: occasional Drug use: No documented in this encounterNationwide Children'S Hospital03-29-2023 Miscellaneous Notes* Telephone Encounter - Bianca Addison RN - 07/04/2022 3:09 PM EDT Reached out to Pat to offer her appt to see Dr Bingham on 07/19 at 9:45 with imaging prior. At 8:15. Patient accepted with appt. No further questions. documented in this encounterNationwide Children'S Hospital03-29-2023 History of Present illness Narrative* Chantale [...] interm. MATTY Bruner, RN Clinical Research Nurse [phone] documented in this encounterNationwide Children'S Hospital03-29-2023 History of Present illness Narrative* Serena Carrasco, - 07/04/2022 10:01 AM EDT Diagnosis: 1) Breast cancer. HPI: The patient is a 61-year-old postmenopausal female who has a past medical history significant for hypertension and primary biliary cirrhosis. She is seen by her accounts receivable accountant approximately once ayear and she has had stable findings. Most recent liver chemistries performed at [facility] on 01/10/2017 showed a total bilirubin of [...] Evidently she was on a trip to [place] about 2 1/2 years ago when she [...] greatest length). ER (clone 6F11) >95%, strong [place] (clone 16/1E2) >95%, strong Her-2Neu (clone CB11) [...] Previously performed (HER2) ERBB2 Status: Previously performed Scrapper Tumor Block: Specify: B3 Residual tumor burden: Tumor bed dimension #1: 8 mm Tumor bed dimension #2: 5 mm Overall tumor cellularity 50% Percentage in situ 3% Comment: Please see [id number] for the results of estrogen and progesterone receptors and HER2 studies. 2) Radiation to left chest wall/axilla and supraclavicular area completed 01/02/2018. 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 Current therapy: 1) Anastrozole on clinical trial. Presents for ongoing oncologic management. [...] rhonchi. CARDIOVASCULAR: Rhythm is regular. 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 Left sided implant remains contracted. Stable less than BB sized palpable nodules along the superior margin of the breast implant. There is a new, firm subcutaneous mobilenodule inferior side left breast implant. Right breast--No mass or nodule. ABDOMEN: The abdomen is nondistended. No organomegaly. No tenderness. Extremities: No swelling or edema. SKIN: No jaundice or rash. NEUROLOGIC: senior budget analyst II-XII are grossly intact. No focal motor weakness. MUSCULOSKELETAL: No muscle wasting. No joint swelling of the hands. ASSESSMENT/PLAN: (C50.512, Z17.0) Malignant neoplasm of lower-outer quadrant of left breast of female, estrogen receptor positive (HCC) (primary encounter diagnosis) (C77.3) 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) Assessment: -cT3 cN3 (high axillary LNs and possible internal mammary merlyn involvement) MX stage IIIC ER/NY positive, HER2 non overexpressed invasive ductal carcinoma [...] which included preparing to see the patient, qgwz-hd-rbrr patient care, completing clinical documentation, obtaining and/or reviewing separately obtained history, performing a medically appropriate examination, counseling and educating the pat ient/family/caregiver, ordering medications, tests, or procedures, communicating with other HCPs (not separately reported), and communicating results to the patient/family/caregiver. Serena Carrasco DO documented in this encounterNationwide [facility]03-27-2023 Miscellaneous Notes* Telephone Encounter - Kamala Morales LPN - 07/02/2022 1:19 PM EDT Last office visit: 02/19/22 Next appointment scheduled: 03/11/23 * Telephone Encounter - [facility] - 07/02/2022 12:11 PM EDT Pat Sorto is calling Jacinta Rivas MD today to request a medication not found on current med list: Trazadone 50 mg taking one daily When provider approves please send 90 day [facility] Call patient with any concerns at phone number below which has been verified. Patient has been identified by name and birthdate. Person calling: self Call patient at: on cell [phone] cell Was an appointment scheduled: No Closing statement: Results or non-symptom based questions: Thank you for calling [facility], your call will be returned within the next business day. [facility] documented in this encounterNationwide Children'[facility] Hospital03-20-2023 Miscellaneous Notes* Telephone Encounter - Kasie [...] patient. Kasie Moraes LPN documented in this encounterNationwide Children'S Hospital02-24-2023 Miscellaneous Notes* Letter - Mammography Coordinator - 06/01/2022 8:22 AM EST June 04, 2022 PID: [id number] Pat Sorto [address] [place] [address] Dear Ms. Sorto, We are pleased to [...] report will be [facility] as part of your permanent medical record and are available for your continuing care. Thank you for allowing us to help in meeting your health care needs. Sincerely, Dr. Ro Interpreting Radiologist [facility] (Normal over 40) documented in this encounterNationwide Children'S Hospital02-17-2023 Miscellaneous Notes* Telephone Encounter - Kasie [...] patient. Kasie Moraes LPN documented in this encounterNationwide Children'S Hospital01-19-2023 Miscellaneous Notes* Telephone Encounter - Анна Peck LPN - 04/26/2022 9:00 AM EST Pt notified and voices understanding. Анна Peck LPN * Telephone Encounter - Luis Alberto Raman APRN.SONIDO - 04/26/2022 8:37 AM EST Please inform pt. of her MRI results. Impression: Splenic lesion seen on CTA is benign, either a cyst/pseudocyst. No worrisome findings in the abdomen. Follow up as scheduled. Thank you. Luis Alberto Raman APRN.CNP documented in this encounterNationwide Children'S Hospital12-19-2022 NoteIMPRESSION: 1. Stable right RED 2. Progressive advanced left hip osteoarthrosis Tape Rules Printing Machine Operator: MARTÍNEZ Transcribe Date/Time: Mar 26 2022 2:12P Dictated by : WENDY MITCHELL MD This examination was interpreted and the report reviewed and electronically signed by: WENDY MITCHELL MD on Mar 26 2022 2:12PM EST [facility] [id number] History of Present illness Narrative* Adebayo Avila PA-C - 03/26/2022 9:51 AM EST [...] (HCC) followed by Dr. Husam Hart in [place] PAST SURGICAL HISTORY Procedure Laterality Date ARTHRP ACETBLR/PROX FEM PROSTC AGRFT/ALGRFT Right 03/20/2019 Hip replacement, total ARTHRP KNE CONDYLE&PLATU MEDIAL&LAT COMPARTMENTS Left 02/2016 BIOPSY BREAST OPEN INCISIONAL Left 2007 [facility] benign pathology per patient BREAST RECONSTRUCTION Left 2019 fat graft/implant exchange DELIVERY ONLY 1996,1993 , low transverse MASTECTOMY HX Left 2018 AND with immediate reconstruction Current Outpatient Medications [...] Rx Drug Management: New prescription entered into [facility]. Adebayo Avila PA-C documented in this encounterNationwide Children'S Hospital12-19-2022 Miscellaneous Notes* Allied Health - Kasie Arvizu RT(R) - 03/26/2022 9:00 AM EST Radiology [...] RT Laura(R) March 26, 2022 9:25 AM documented in this encounterNationwide Children'S Hospital12-19-2022 Progress note* [facility] - Kasie Arvizu RT(R) - 03/26/2022 9:00 AM EST Radiology [...] RT Laura(R) March 26, 2022 9:25 AM [facility]12-13-2022 Miscellaneous Notes* Telephone Encounter - Jacinta Rivas MD - 03/20/2022 10:13 PM EST See MyChart reply documented in this encounterNationwide Children'S Hospital11-21-2022 Miscellaneous Notes* Telephone Encounter - Svetlana Kong LPN - 02/26/2022 9:25 AM EST Detailed message left on patient's identified VM. Patient to contact ofice for further questions. Svetlana Kong LPN * Telephone Encounter - Luis Alberto Raman APRN.CNP - 02/26/2022 9:10 AM EST CTA was ordered by Dr. Rodriguez. She will need to discuss with her. Thank you. Luis Alberto Raman APRN.SONIDO * Telephone Encounter - Анна Peck LPN - 02/23/2022 2:55 PM EST Will fax to Dr Tellez. She is asking for results of CTA. Анна Peck LPN * Telephone Encounter - Susana Castillo Pss - 02/23/2022 2:33 PM EST Patient is requesting a return call from Luis Alberto in regards to a few test that was completed and asking if they was sent to Dr Tellez in [place]? She is also asking about the results of the CTA please return call to patient. documented in this encounterNationwide Children'S Hospital11-14-2022 History of Present illness Narrative* Jacinta Rivas MD - 02/19/2022 9:20 AM EST This note was created using Silent Circleriter. Subjective Pat Sorto is a 62 year [...] (HCC) followed by Dr. Husam Hart in [place] Current Outpatient Medications Medication Sig meloxicam (MOBIC) [...] Lymph 1.00 - 4.00 k/uL 2.06 1.84 Pettis% % 7.8 6.1 Abs Pettis <0.87 k/uL 0.56 0.55 Eosin% % 1.8 [...] (L) eGFR >=60 mL/min/1.73m 71 70 63 Noted11/12/28 CT abd/pelvis: IMPRESSION: 1. There is a [...] be communicated with the ordering provider via [facility] staff message or phone message by Imaging [...] sleep. Jacinta Rivas MD documented in this encounterNationwide Children'S Hospital11-03-2022 Miscellaneous Notes* Telephone Encounter - Henrietta [...] recommendation. Bobbi Saavedra * Telephone Encounter - rBent Wall APRN.SONIDO - 02/07/2022 11:40 AM EDT Please notify that urine culture came back positive for uti. The antibiotic came back intermediate/possible not to work. Ask if s/s still present or getting worse, I will order different atb. If s/s resolved can leave on macrobid documented in this encounterNationwide Children'S Hospital10-31-2022 History of Present illness Narrative* Victoria [...] (HCC) followed by Dr. Husam Hart in [place] PAST SURGICAL HISTORY Procedure Laterality Date ARTHRP ACETBLR/PROX FEM PROSTC AGRFT/ALGRFT Right 03/20/2019 Hip replacement, total ARTHRP KNE CONDYLE&PLATU MEDIAL&LAT COMPARTMENTS Left 02/2016 BIOPSY BREAST OPEN INCISIONAL Left 2007 [facility] benign pathology per patient BREAST RECONSTRUCTION Left 2019 fat graft/implant exchange DELIVERY ONLY 1996,1993 , low transverse MASTECTOMY HX Left 2017 AND with immediate reconstruction ALLERGIES Patient has [...] Patient agreeable to treatment plan. Victoria Duarte APRN.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 documented in this encounterNationwide Children'S Hospital07-06-2022 Nurse Note* Bianca Addison RN - [...] work: No Is the patient active on [employer] Yes Electronically Signed By: Bianca Addison RN [...] (HCC) followed by Dr. Husam Hart in [place] PAST SURGICAL HISTORY Procedure Laterality Date ARTHRP ACETBLR/PROX FEM PROSTC AGRFT/ALGRFT Right 03/20/2019 Hip replacement, total ARTHRP KNE CONDYLE&PLATU MEDIAL&LAT COMPARTMENTS Left 02/2016 BIOPSY BREAST OPEN INCISIONAL Left 2007 [facility] benign pathology per patient BREAST RECONSTRUCTION Left 2019 fat graft/implant exchange DELIVERY ONLY 1996,1993 , low transverse MASTECTOMY HX Left 2017 AND with immediate reconstruction Social History Tobacco Use Smoking status: Never Smoker Smokeless tobacco: Never Used Vaping Use Vaping Use: Never used Substance Use Topics Alcohol use: Yes Comment: occasional Drug use: No documented in this encounterNationwide Children'S Hospital07-06-2022 History of Present illness Narrative* Eliz Bingham MD - 10/11/2021 12:00 PM EDT LAST SEEN AUGUST 2020 for routine follow up of breast cancer history Presents today for scheduled annual exam She is maintaining the anastrozole- hot flashes have improved; joint stiffness is the worst SE She has increased discomfort around her left implant HISTORY: Presented in 2018 with ER/NY positive, HER2 negative left LABC (worked up at [place]) [id number] Stage IIIC Neoadjuvant course (Masci): ddACx4, Taxol [...] She continues to follow with hepatology (in [place]) for known biliary cirrhosis Left THR- 2018 REVIEW OF SYSTEMS PAIN ASSESSMENT: Negative [...] No history of dysuria, frequency or incontinence PATIENT SAFETY SITTER: Negative for abnormal vaginal bleeding, abnormal vaginal [...] regional adenopathy No imaging performed today IMPRESSION: Patkey Sorto, 60 year old female, with Clinical Stage IIIC ER/NY positive, HER2 negative left breast cancer in 2018 s/p NACT (Masci) s/p MRM with LV-bypass [...] breast concerns She plans on traveling to [place] to consult with Dr. Rodriguez regarding her implant contracture. I spent a total of 30 minutes on the date of the service which included preparing to see the patient, koeb-yx-kkxl patient care, completing clinical documentation, obtaining and/or reviewing separately obtained history, performing a medically appropriate examination, counseling and educating the pat ient/family/caregiver, ordering medications, tests, or procedures, communicating with other HCPs (not separately reported), independently interpreting results (not separately reported), communicatingresults to the patient/family/caregiver and care coordination (not separately reported). Eliz Bingham MD documented in this encounterNationwide Children'S Hospital06-08-2022 Miscellaneous Notes* Telephone Encounter - Jacinta [...] Paxlovid Nirmatrelvir/Ritonavir (Paxlovid) Eligibility and Patient Discussion [facility] Formulary Restriction Criteria: Adult outpatients 18 [...] of transplant or on systemic therapy for hrnma-tvzaki-gypo disease [] CAR T-cell/other cellular therapy recipients [...] PM * Telephone Encounter - Odette Martinez JUNIOR - 09/08/2021 4:46 PM EDT Called pt [...] Treatment. Please advise. She uses [facility] [place]. Saadia Zepeda LPN documented in this encounterNationwide Children'S Hospital06-04-2022 Miscellaneous Notes* Telephone Encounter - Jacinta Rivas MD - 09/09/2021 12:27 PM EDT Addressed. See telephone encounter documented in this encounterNationwide Children'S Hospital06-03-2022 Miscellaneous Notes* Telephone Encounter - Jacinta Rivas MD - 09/08/2021 8:07 PM EDT I pended Paxlovid orders in other encounter so can fill easily if needed. documented in this encounterNationwide Children'S Hospital06-03-2022 Instructions* Patient Instructions* Jacinta Rivas MD - 09/08/2021 8:04 PM EDT FACT SHEET FOR PATIENTS, PARENTS, AND CAREGIVERS EMERGENCY USE AUTHORIZATION (EUA) OF PAXLOVID FOR CORONAVIRUS DISEASE 2019 (COVID-19) You are being given this Fact Sheet because your healthcare provider believes it is necessary to provide you with PAXLOVID for the treatment of zttz-xa-oyhkobur coronavirus disease (COVID-19) caused by the SARS-CoV-2 [...] virus. COVID-19 illnesses have ranged from very rpcf-rp-viuast, including illness resulting in . While information [...] is an investigational medicine used to treat dnmn-rs-tahtwtjx COVID-19 in adults and children [12 years [...] of using PAXLOVID to treat people with vnof-ql-jlgqucpq COVID-19. The FDA has authorized the emergency use of PAXLOVID for the treatment of tdej-br-cxxozbwv COVID-19in adults and children [12 years of [...] the medicines you take, including prescription and irnd-rqh-uzsfchb medicines, vitamins, and herbal supplements. Some medicines [...] (remdesivir) is FDA-approved for the treatment of djyv-ma-krozsbep COVID-19 in certain adults and children. Talk with your doctor to see if Veklury is appropriate for you. Like PAXLOVID, FDA may also allow for the emergency use of other medicines to treat people with COVID-19. Go to https://www.fda.gov/jcfxyyvll-ypcghhqysacn-rkgnwthteeq/zjb-ixnti-nbakrpbysd-and- policy-framework/owimohzyp-xmw-kkqjetxifnspz for information on the emergency use of [...] if I am or ? There is electroencephalograph technologist treating women or mothers with PAXLOVID. [...] not go away. Report side effects to Consulted MedWatch at www.fda.gov/medwatch or call 6-946-FZM2915 or you can reportside effects to [employer]. at the contact information provided below. Website Fax number Telephone number [employer] How should I store PAXLOVID? Store PAXLOVID [...] (EUA). The EUA is supported by a Pump Tester of Health and Human Service (HHS) declaration that circumstances exist to justify the emergency use of drugs and biological productsduring the COVID-19 pandemic. PAXLOVID for the treatment of djpr-pz-dltdumzq COVID-19 in adults and children [12 years [...] telephone number provided below. Website Telephone number wwwThe fresh GroupMDVNW06bwjmWm.com (0-174-O77-PACK) You can also go to www.TryLife.VideoJax or call for more information. Pfizer Distributed by [employer] [place] [address] [id number] Revised: 23 June 2021 documented in this encounterNationwide Children'S Hospital05-04-2022 History of Present illness Narrative* Serenity Tato, RD - 08/09/2021 1:52 PM EDTSummary: Nutrition [...] vinegar based or ranch dressing// turkey sandwich, surinamese on wheat mustard// soup// fruit Snack - [...] Dosing Weight: 90.3 kg Estimated kilocalorie needs: 7208-8300 kilocalories determined by 15-18 kcal/kg Estimated protein [...] by: Serenity Godwin RD,LD documented in this encounterNationwide Children'S Hospital04-27-2022 History of Present illness Narrative* Serena Carrasco, DO - 08/02/2021 9:22 AM EDT Diagnosis: 1) Breast cancer. HPI: The patient is a 61-year-old postmenopausal female who has a past medical history significant for hypertension and primary biliary cirrhosis. She is seen by her accounts receivable accountant approximately once ayear and she has had stable findings. Most recent liver chemistries performed at [facility] on 01/10/2017 showed a total bilirubin of [...] Evidently she was on a trip to [place] about 2 1/2 years ago when she [...] greatest length). ER (clone 6F11) >95%, strong NY (clone 16/1E2) >95%, strong Her-2Neu (clone CB11) [...] Previously performed (HER2) ERBB2 Status: Previously performed Scrapper Tumor Block: Specify: B3 Residual tumor burden: Tumor bed dimension #1: 8 mm Tumor bed dimension #2: 5 mm Overall tumor cellularity 50% Percentage in situ 3% Comment: Please see [id number] for the results of estrogen and progesterone receptors and HER2 studies. 2) Radiation to left chest wall/axilla and supraclavicular area completed 01/02/2018. 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 Current therapy: 1) Anastrozole on clinical trial. Presents for ongoing oncologic management. [...] rhonchi. CARDIOVASCULAR: Rhythm is regular. 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 Left sided implant remains contracted. Lessl BB sized palpable nodules along the superior margin of the breast implant. Right breast--No mass or nodule. ABDOMEN: The abdomen is nondistended. No organomegaly. No tenderness. Extremities: No swelling or edema. SKIN: No jaundice or rash. NEUROLOGIC: senior budget analyst II-XII are grossly intact. No focal motor weakness. MUSCULOSKELETAL: No muscle wasting. No joint swelling of the hands. ASSESSMENT/PLAN: (C50.512, Z17.0) Malignant neoplasm of lower-outer quadrant of left breast of female, estrogen receptor positive (HCC) (primary encounter diagnosis) (C77.3) 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) Assessment: -cT3 cN3 (high axillary LNs and possible internal mammary merlyn involvement) MX stage IIIC ER/NY positive, HER2 non overexpressed invasive ductal carcinoma [...] necessary. Serena Carrasco DO documented in this encounterNationwide Children'S Hospital04-27-2022 History of Present illness Narrative* Chantale [...] interm. Chantale Bundy, Research Nurse, BSN, RN [phone] documented in this encounterNationwide Children'S Hospital11-08-2021 History of Present illness Narrative* Helen [...] 13, 2021 4:17 PM documented in this encounterNationwide Children'S Hospital09-28-2021 History of Present illness Narrative* Helen Fay [...] 03, 2021 3:41 PM documented in this encounterNationwide Children'S HospitalDissouthwest general health centerr summary Author William Minaya [facility] Note Date/Time November 18, 2024 12 :16pm [facility] Medical Records Department [address] [place] [address] Instructions for Home/Discharge Instructions 11/18/24 1210 MR#: [id number] Acct: [id number] Name: PAT SORTO Rep #:[id number] : 1960 64 From: William hooker MD PCP: Dr. Jacinta Rivas MD Status:AD M IN Discharge Instructions DC O2, CPAP, BIPAP needs Home O2 Discharge instructions: No Dressing / Incision Discharge Activity: Return to Normal Activity Dressing / Incision Call your doctor if you observe: Fever of 101 or Higher, Shortness of breath, Dizziness, Fainting spells, Swelling in the ankles, Chest pain and Increased palpitations (irregular heartbeat) Follow Up Care Test Results: Test results from this visit will be discussed in further detail at your follow- up appointment, if applicable. Discharge Plan Admission Admit Date/Time: 11/15/24 22:14 Attending Provider: William Minaya Primary Care Provider: Jacinta Rivas Consulting Providers: Meri Vu; Annabel Carter Instructions Additional Instructions / Restrictions: I discussed your case with your oncologist, he feels that you would be able to hold your everolimus and exemestane for a week or 2 while you are in [place] to allow time for your kidneys to recover. I discontinued all of your blood pressure medications except for your amlodipine. I do recommend that you follow-up with your PCP when you return from [facility] to see if any further adjustments need to be made. I gave you 10 days worth of cefdinir 300 mg p.o. daily this antibiotic is dose adjusted because of your kidney disease. Please take 5 tablets and then take the remainder with you to [facility] in case you develop symptoms of a UTI while there. Discharge Orders/Prescriptions Prescriptions: New cefdinir 300 mg capsule 300 mg PO DAILY 10 Days Qty: 10 0RF Rx Instructions: Take 5 days tablet. Keep 5 tablets for when you go to [facility] incase you develop a recurrent infection Continued aspirin 81 mg tablet,chewable 81 mg PO ONCE vitamin E (dl, acetate) 100 unit capsule 400 unit PO QDAY ascorbic acid (vitamin C) 100 mg tablet 500 mg PO QDAY ursodiol [LEENA Forte] 500 mg tablet 1,250 mg PO QDAY lorazepam 0.5 mg tablet 0.5 mg PO TID PRN (Reason: anxiety) exemestane 25 mg tablet 25 mg PO DAILY everolimus (antineoplastic) 10 mg tablet 10 mg PO DAILY pantoprazole 40 mg tablet,delayed release (DR/EC) 40 mg PO DAILY calcium carbonate 500 mg calcium (1,250 mg) tablet 1,000 mg PO DAILY insulin glargine [Lantus Solostar U-100 Insulin] 100 unit/mL (3 mL) insulin pen 20 unit subcut QAM amlodipine 5 mg tablet 5 mg PO QDAY Qty: 90 3RF cyanocobalamin (vitamin B-12) 1,000 MCG capsule 1,000 mcg PO DAILY ergocalciferol (vitamin D2) [Vitamin D2] 1,250 mcg (50,000 unit) capsule 50,000 unit PO QWEEK trazodone 50 mg tablet 50 mg PO QHS Mounjaro 2.5 mg/0.5 mL pen injector 2.5 mg subcut QWEEK Discontinued metoprolol succinate 25 mg tablet extended release 24 hr 25 mg PO QDAY hydrochlorothiazide 12.5 mg tablet 12.5 mg PO QDAY losartan 25 mg tablet 50 mg PO DAILY Referrals / Follow Up: Jacinta Rivas MD [Primary Care Provider] - Serena Carrasco DO [Med Staff - Active Staff] - Within 1 Week Disposition Disposition (needs filled in before D/C Order can be placed): Home, Self Care 11/18/24 1216<Electronically signed by William Minaya MD>William Minaya MD CC: Dr. Meri Vu MD; Dr. Annabel Carter DO; Dr. Jacinta Rivas MD ~ Signed [facility] Work Phone: Evaluation note* Diagnosis Malignant neoplasm of left breast in female, estrogen receptor positive, unspecified site of breast (HCC)- Primary Nontoxic single thyroid nodule Nontoxic uninodular goiter [facility] encounter [facility]* Diagnosis Malignant neoplasm of left breast in female, estrogen receptor positive, unspecified site of breast (HCC)- Primary documented in this encounter [facility] note* Diagnosis Examination of participant in clinical trial- Primary documented in this encounter [facility] note* Diagnosis Malignant neoplasm of left breast in female, estrogen receptor positive, unspecified site of breast (HCC)- Primary documented in this encounter [facility] note* Diagnosis Primary biliary cirrhosis (HCC)- Primary Biliary cirrhosis [facility]* Diagnosis COVID-19 virus infection- Primary [facility] encounter [facility]* Diagnosis Malignant neoplasm of lower-outer quadrant of left breast of female, estrogen receptor positive (HCC)- Primary documented in this encounter [facility] noteNo assessment information availableWOur [facility] of [facility] Work Phone: Evaluation note* Diagnosis Frequent urination- Primary Urinary frequency documented in this encounter [facility] note* Diagnosis Routine medical exam- Primary Routine general medical examination at a health care facility Elevated glucose Other abnormal glucose Acute cystitis without hematuria Acute cystitis Encounter for immunization Need for other specified prophylactic vaccination against single bacterial disease documented in this encounter [facility] note* Diagnosis It band syndrome, right- Primary Status post total replacement of right hip Primary osteoarthritis of right knee Primary localized osteoarthrosis, lower leg documented [facility] this encounter [facility]* Diagnosis Malignant neoplasm of lower-outer quadrant of left breast of female, estrogen receptor positive (HCC)- Primary documented in this encounter [facility] note* Diagnosis Insomnia, unspecified type documented in this encounter [facility] note* Diagnosis Malignant neoplasm of left breast in female, estrogen receptor positive, unspecified site of breast (HCC)- Primary documented in this encounter [facility]* Diagnosis Malignant neoplasm of lower-outer quadrant of left breast of female, estrogen receptor positive (HCC)- [facility] Malignant neoplasm of left breast in female, estrogen receptor positive, unspecified site of breast (HCC)- Primary [facility]* Diagnosis Abnormal ultrasound of breast- Primary Other (abnormal) findings on radiological examination of breast [facility] Diagnosis Malignant neoplasm of lower-outer quadrant of left breast of female, estrogen receptor positive (HCC)- Primary [facility] Diagnosis Malignant neoplasm of left breast in female, estrogen receptor positive, unspecified site of breast (HCC)- Primary 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) [facility] Diagnosis Malignant neoplasm of overlapping sites of left breast in female, estrogen receptor positive (HCC) 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) [facility] Diagnosis Malignant neoplasm of lower-outer quadrant of left breast of female, estrogen receptor positive (HCC)- Primary [facility] Diagnosis Adenopathy- Primary Enlargement of lymph nodes Adenopathy Enlargement of lymph nodes [facility] Diagnosis Pre-op evaluation- Primary Preoperative examination, [...] of lymph nodes [facility] Diagnosis Adenopathy- Primary Enlargement of lymph nodes 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) Primary biliary cirrhosis (HCC) Biliary cirrhosis Malignant neoplasm of lower-outer quadrant of left breast of female, estrogen receptor positive (HCC) Adenopathy Enlargement of lymph nodes [facility] Diagnosis Malignant neoplasm of lower-outer quadrant of left breast of female, estrogen receptor positive (HCC) [facility] 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)- Primary Malignant neoplasm of lower-outer quadrant of left breast of female, estrogen receptor positive (HCC) 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 [facility] 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 unspecified malignant neoplasm of intrathoracic lymph nodes [facility] Diagnosis Carcinoma of left breast metastatic to skin (HCC)- Primary [facility] Diagnosis Malignant neoplasm of lower-outer quadrant of left breast of female, estrogen receptor positive (HCC)- Primary 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 [facility] Diagnosis Carcinoma of left breast metastatic to skin (HCC)- Primary Malignant neoplasm of lower-outer quadrant of left breast of female, estrogen receptor positive (HCC) 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 [facility] Diagnosis Malignant neoplasm of lower-outer quadrant of left breast of female, estrogen receptor positive (HCC)- Primary 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 Hypotension due to hypovolemia Functional diarrhea LAXMI (acute kidney injury) (HCC) Acute kidney failure, unspecified [facility] Diagnosis Carcinoma of left breast metastatic to skin (HCC)- Primary Malignant neoplasm of lower-outer quadrant of left breast of female, estrogen receptor positive (HCC) 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 [facility] Diagnosis Examination of participant in clinical trial- Primary [facility] Diagnosis Carcinoma of left breast metastatic to skin (HCC)- Primary [facility] Diagnosis Functional diarrhea- Primary [facility] Diagnosis Functional diarrhea- Primary [facility] Diagnosis 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)- Primary Secondary and unspecified malignant neoplasm of lymph nodes of axilla and upper limb [facility] Diagnosis 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 unspecified malignant neoplasm of intrathoracic lymph nodes Functional diarrhea [facility] Diagnosis Carcinoma of left breast metastatic to skin (HCC)- Primary Malignant neoplasm of lower-outer quadrant of left breast of female, estrogen receptor positive (HCC) 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 [facility] Diagnosis Malignant neoplasm of lower-outer quadrant of left breast of female, estrogen receptor positive (HCC)- Primary Carcinoma of left breast metastatic to skin (HCC) [facility] Diagnosis 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 unspecified malignant neoplasm of intrathoracic lymph nodes [facility] Diagnosis Malignant neoplasm of lower-outer quadrant of left breast of female, estrogen receptor positive (HCC)- Primary 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 [facility] Diagnosis Dehydration- Primary Functional diarrhea [facility] Diagnosis Malignant neoplasm of lower-outer quadrant of left breast of female, estrogen receptor positive (HCC) Carcinoma of left breast metastatic to skin (HCC) [facility] Diagnosis Functional diarrhea- Primary [facility] Diagnosis Malignant neoplasm of lower-outer quadrant of left breast of female, estrogen receptor positive (HCC)- Primary Carcinoma of left breast metastatic to skin (HCC) 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 [facility] Diagnosis Carcinoma of left breast metastatic to skin (HCC)- Primary Malignant neoplasm of lower-outer quadrant of left breast of female, estrogen receptor positive (HCC) 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 [facility] Diagnosis Carcinoma of left breast metastatic to skin (HCC)- Primary [facility] Diagnosis Malignant neoplasm of lower-outer quadrant of left breast of female, estrogen receptor positive (HCC) Carcinoma of left breast metastatic to skin (HCC) [facility] Diagnosis Carcinoma of left breast metastatic to skin (HCC)- Primary Malignant neoplasm of lower-outer quadrant of left breast of female, estrogen receptor positive (HCC) 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 [facility] Diagnosis Carcinoma of left breast metastatic to skin (HCC) [facility] Diagnosis Malignant neoplasm of left breast in female, estrogen receptor positive, unspecified site of breast (HCC)- Primary 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, unspecified LAXMI (acute kidney injury) (HCC) Acute kidney failure, unspecified [facility] Diagnosis Malignant neoplasm of lower-outer quadrant of left breast of female, estrogen receptor positive (HCC)- Primary 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 [facility] Diagnosis Malignant neoplasm of left breast in female, estrogen receptor positive, unspecified site of breast (HCC)- Primary LAXMI (acute kidney injury) (HCC) Acute kidney failure, unspecified [facility] Diagnosis Malignant neoplasm of left [...] to skin (HCC) [facility] Diagnosis Malignant neoplasm of left [...] to skin (HCC) [facility] Diagnosis Malignant neoplasm of lower-outer quadrant of left breast of female, estrogen receptor positive (HCC)- Primary 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 Abnormal positron emission tomography (PET) scan Nonspecific abnormal results of other specified function study [facility] Diagnosis Malignant neoplasm of lower-outer quadrant of left breast of female, estrogen receptor positive (HCC)- Primary 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 to skin (HCC) [facility]* Diagnosis Cervicalgia- Primary [facility]* Diagnosis Arthritis of midfoot- Primary Unspecified arthropathy, ankle and foot [facility] Diagnosis Arthritis of midfoot- Primary Unspecified arthropathy, ankle and foot [facility]* Diagnosis Carcinoma of left breast metastatic to skin (HCC)- Primary Malignant neoplasm of lower-outer quadrant of left breast of female, estrogen receptor positive (HCC) 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 [facility] Diagnosis Stomatitis and mucositis- Primary Stomatitis and mucositis, unspecified Malignant neoplasm of left breast in female, estrogen receptor positive, unspecified site of breast (HCC) (HCC) 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 [facility] Diagnosis Stomatitis and mucositis Stomatitis and mucositis, unspecified [facility]* Diagnosis Malignant neoplasm of left breast in female, estrogen receptor positive, unspecified site of breast (HCC)- Primary 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 [facility] Diagnosis Malignant neoplasm of lower-outer quadrant of left breast of female, estrogen receptor positive (HCC)- Primary Carcinoma of left breast metastatic to skin (HCC) Malignant neoplasm of left breast in female, estrogen receptor positive, unspecified site of breast (HCC) 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 [facility] Diagnosis Urinary frequency- Primary Glucosuria Glycosuria Left lower quadrant abdominal tenderness with rebound tenderness Hyperglycemia Other abnormal glucose [facility]* Diagnosis Newly diagnosed diabetes (HCC)- Primary Type II or unspecified type diabetes mellitus without mention of complication, not stated as uncontrolled [facility] Diagnosis Lymphedema of left arm- Primary Malignant neoplasm of lower-outer quadrant of left breast of female, estrogen receptor positive (HCC) 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) [facility]* Diagnosis Type 2 diabetes mellitus without complication, unspecified whether content assistant insulin use (HCC)- Primary [facility] Diagnosis Malignant neoplasm of lower-outer quadrant of left breast of female, estrogen receptor positive (HCC) Carcinoma of left breast metastatic to skin (HCC) [facility]* Diagnosis Chemotherapy-induced cardiomyopathy (HCC)- Primary Secondary [...] red blood cells [facility] Diagnosis Carcinoma of left breast metastatic to skin (HCC) Malignant neoplasm of left breast in female, estrogen receptor positive, unspecified site of breast (HCC) 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 [facility] Diagnosis Malignant neoplasm of lower-outer quadrant of left breast of female, estrogen receptor positive (HCC) Type 2 diabetes mellitus without complication, unspecified whether content assistant insulin use (HCC)- Primary [facility] Diagnosis Type 2 diabetes mellitus without complication, unspecified whether content assistant insulin use (HCC)- Primary [facility]* Diagnosis Newly diagnosed Uncontrolled type 2 diabetes mellitus with hyperglycemia (HCC)- Primary Urinary tract infection without hematuria, site unspecified Metastasis from breast cancer (HCC) [facility]* Diagnosis Malignant neoplasm of lower-outer quadrant of left breast of female, estrogen receptor positive (HCC) Carcinoma of left breast metastatic to skin (HCC) 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 [facility] Diagnosis Type 2 diabetes mellitus without complication, unspecified whether jail insulin use (HCC)- Primary [facility]* Diagnosis Carcinoma of left breast metastatic to skin (HCC) Malignant neoplasm of left breast in female, estrogen receptor positive, unspecified site of breast (HCC) 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 [facility] Diagnosis Malignant neoplasm of left breast in female, estrogen receptor positive, unspecified site of breast (HCC) 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 [facility]* Diagnosis Type 2 diabetes mellitus without complication, unspecified whether jail insulin use (HCC)- Primary [facility]* Diagnosis Neck strain, initial encounter- Primary [facility] Diagnosis Acute cystitis with hematuria- Primary Acute cystitis [facility] Diagnosis Complicated UTI (urinary tract infection)- Primary Urinary tract infection, site not specified [facility] Diagnosis Carcinoma of left breast metastatic to skin (HCC) Malignant neoplasm of left breast in female, estrogen receptor positive, unspecified site of breast (HCC) 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 [facility] Diagnosis Carcinoma of left breast metastatic to skin (HCC)- Primary 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 Acute cystitis with hematuria Acute cystitis Primary hypertension Unspecified essential hypertension Chemotherapy-induced cardiomyopathy (HCC) Secondary cardiomyopathy, unspecified [facility] Diagnosis Carcinoma of left breast metastatic to skin (HCC)- Primary Malignant neoplasm of overlapping sites of left breast in female, estrogen receptor positive (HCC) [facility] Diagnosis Right upper quadrant pain- Primary Abdominal pain, right upper quadrant [facility] Diagnosis Right upper quadrant pain Abdominal pain, right upper quadrant [facility] Diagnosis Pre-operative examination- Primary Preoperative examination, [...] 2 diabetes mellitus without complication, unspecified whether content assistant insulin use (HCC)- Primary Medication management Encounter for long-term (current) use of other medications [facility] Diagnosis Pre-operative examination- Primary Preoperative examination, [...] intrathoracic lymph nodes documented in this encounter [facility]* Diagnosis Pre-operative examination- Primary [...] intrathoracic lymph nodes documented in this encounter [facility] note* Diagnosis Pre-operative examination- Primary [...] 32.9 in adult documented in this encounter [facility] note* Diagnosis Pre-operative examination- Primary [...] kidney failure, unspecified [facility] Diagnosis Pre-operative examination- Primary Preoperative examination, [...] positive (HCC)- Primary [facility] Diagnosis Pre-operative examination- Primary Preoperative examination, [...] 32.9 in adult documented in this encounter [facility] note* Diagnosis Pre-operative examination- Primary [...] 2 diabetes mellitus without complication, unspecified whether jail insulin use (HCC)- Primary documented in this encounter [facility] note* Diagnosis Pre-operative examination- Primary [...] 32.9 in adult [facility] Diagnosis Pre-operative examination- Primary Preoperative examination, [...] of hip region documented in this encounter [facility] note* Diagnosis Pre-operative examination- Primary [...] region and thigh documented in this encounter [facility] note* Diagnosis Pre-operative examination- Primary [...] intrathoracic lymph nodes documented in this encounter [facility] note* Diagnosis Pre-operative examination- Primary [...] mellitus (HCC)- Primary documented in this encounter [facility] note* Diagnosis Pre-operative examination- Primary [...] mellitus (HCC)- Primary documented in this encounter [facility] note* Diagnosis Pre-operative examination- Primary [...] receptor positive (HCC) documented in this encounter [facility] note* Diagnosis Pre-operative examination- Primary [...] 2 diabetes mellitus without complication, unspecified whether content assistant insulin use (HCC)- Primary History of breast cancer- Primary Personal history of malignant neoplasm of breast History of breast reconstruction Breast replaced by other means Encounter to discuss breast reconstruction Other specified counseling documented in this encounter [facility] note* Diagnosis Pre-operative examination- Primary [...] positive (HCC)- Primary documented in this encounter [facility] note* Diagnosis Pre-operative examination- Primary [...] intrathoracic lymph nodes documented in this encounter [facility] note* Diagnosis Pre-operative examination- Primary [...] intrathoracic lymph nodes documented in this encounter [facility] note* Diagnosis Pre-operative examination- Primary [...] Other specified counseling documented in this encounter [facility] note* Diagnosis Pre-operative examination- Primary [...] receptor positive (HCC) documented in this encounter [facility] note* Diagnosis Pre-operative examination- Primary [...] insulin (HCC)- Primary documented in this encounter [facility] note* Diagnosis Pre-operative examination- Primary [...] insulin (HCC)- Primary documented in this encounter [facility] note* Diagnosis Pre-operative examination- Primary [...] receptor positive (HCC) documented in this encounter [facility] note* Diagnosis Pre-operative examination- Primary [...] receptor positive (HCC) [facility] Pre-operative examination- Primary Preoperative examination, [...] receptor positive (HCC) documented in this encounter [facility] note* Diagnosis Pre-operative examination- Primary [...] receptor positive (HCC) documented in this encounter [facility] note* Diagnosis Pre-operative examination- Primary [...] receptor positive (HCC) documented in this encounter [facility] note* Diagnosis Pre-operative examination- Primary [...] receptor positive (HCC) documented in this encounter [facility] note* Diagnosis Pre-operative examination- Primary [...] receptor positive (HCC) [facility] Diagnosis Pre-operative examination- Primary Preoperative examination, [...] receptor positive (HCC) documented in this encounter [facility] note* Diagnosis Pre-operative examination- Primary [...] receptor positive (HCC) documented in this encounter [facility] note* Diagnosis Pre-operative examination- Primary [...] receptor positive (HCC) documented in this encounter [facility] note* Diagnosis Pre-operative examination- Primary [...] receptor positive (HCC) documented in this encounter [facility] note* Diagnosis Pre-operative examination- Primary [...] 2 diabetes mellitus without complication, unspecified whether content assistant insulin use (HCC)- Primary Malignant neoplasm of lower-outer quadrant of left breast of female, estrogen receptor positive (HCC) documented [facility]* Diagnosis Pre-operative examination- Primary Preoperative examination, [...] receptor positive (HCC) documented in this encounter [facility] note* Diagnosis Pre-operative examination- Primary [...] receptor positive (HCC) documented in this encounter [facility] note* Diagnosis Pre-operative examination- Primary [...] receptor positive (HCC) documented in this encounter [facility] note* Diagnosis Pre-operative examination- Primary [...] receptor positive (HCC) documented in this encounter [facility] note* Diagnosis Pre-operative examination- Primary [...] receptor positive (HCC) documented [facility] this [facility]* Diagnosis Pre-operative examination- Primary Preoperative examination, [...] positive (HCC)- Primary documented in this encounter [facility] note* Diagnosis Pre-operative examination- Primary [...] receptor positive (HCC) documented in this encounter [facility] note* Diagnosis Pre-operative examination- Primary [...] receptor positive (HCC) documented in this encounter [facility] note* Diagnosis Pre-operative examination- Primary [...] receptor positive (HCC) documented [facility]* Diagnosis Pre-operative examination- Primary Preoperative examination, [...] by other means documented in this encounter [facility] note* Diagnosis Pre-operative examination- Primary [...] essential hypertension Palpitations documented in this encounter [facility] note* Diagnosis Pre-operative examination- Primary [...] adult Palpitations- Primary documented in this encounter [facility] note* Diagnosis Pre-operative examination- Primary [...] Axillary pain, left documented in this encounter [facility] note* Diagnosis Pre-operative examination- Primary [...] aftercare following surgery documented in this encounter [facility] note* Diagnosis Pre-operative examination- Primary [...] Seroma of breast documented in this encounter [facility] note* Diagnosis Pre-operative examination- Primary [...] Unspecified essential hypertension documented in this encounter [facility] note* Diagnosis Pre-operative examination- Primary [...] intrathoracic lymph nodes documented in this encounter [facility] note* Diagnosis Pre-operative examination- Primary [...] by other means documented [facility] this encounter [facility]* Diagnosis Pre-operative examination- Primary Preoperative examination, [...] 2 diabetes mellitus without complication, unspecified whether jail insulin use (HCC)- Primary Medication management Encounter for long-term (current) use of other medications documented in this encounter [facility] note* Diagnosis Pre-operative examination- Primary [...] Seroma of breast documented in this encounter [facility] note* Diagnosis Pre-operative examination- Primary [...] intrathoracic lymph nodes documented in this encounter [facility] note* Diagnosis Pre-operative examination- Primary [...] Nontoxic uninodular goiter documented in this encounter [facility] note* Diagnosis Pre-operative examination- Primary [...] Other postprocedural status documented in this encounter [facility] note* Diagnosis Pre-operative examination- Primary [...] intrathoracic lymph nodes documented in this encounter [facility] note* Diagnosis Pre-operative examination- Primary [...] Nontoxic uninodular goiter documented in this encounter [facility] note* Diagnosis Pre-operative examination- Primary [...] condition classified elsewhere [facility] Diagnosis Pre-operative examination- Primary Preoperative examination, [...] 2 diabetes mellitus without complication, unspecified whether jail insulin use (HCC)- Primary documented in this encounter [facility] note* Diagnosis Pre-operative examination- Primary [...] Other postprocedural status documented in this encounter [facility] note* Diagnosis Pre-operative examination- Primary [...] adult Palpitations- Primary documented in this encounter [facility] note* Diagnosis Pre-operative examination- Primary [...] Seroma of breast documented in this encounter [facility] note* Diagnosis Pre-operative examination- Primary [...] 2 diabetes mellitus without complication, unspecified whether jail insulin use (HCC)- Primary documented [facility] this encounter [facility]* Diagnosis Pre-operative examination- Primary Preoperative examination, [...] Seroma of breast documented in this encounter [facility] note* Diagnosis Pre-operative examination- Primary [...] Primary Other lymphedema documented in this encounter [facility] note* Diagnosis Pre-operative examination- Primary [...] site not specified documented in this encounter [facility] note* Diagnosis Pre-operative examination- Primary [...] left arm- Primary documented in this encounter [facility] note* Diagnosis Pre-operative examination- Primary [...] by other means documented in this encounter [facility] note* Diagnosis Pre-operative examination- Primary [...] 2 diabetes mellitus without complication, unspecified whether jail insulin use (HCC)- Primary documented in this encounter [facility] note* Diagnosis Pre-operative examination- Primary [...] left arm- Primary documented in this encounter [facility] note* Diagnosis Pre-operative examination- Primary [...] of insulin (HCC) documented in this encounter [facility] note* Diagnosis Pre-operative examination- Primary [...] Other microscopic hematuria documented in this encounter [facility] note* Diagnosis Pre-operative examination- Primary [...] kidney and ureter documented in this encounter [facility] note* Diagnosis Pre-operative examination- Primary [...] left arm- Primary documented in this encounter [facility] note* Diagnosis Pre-operative examination- Primary [...] hematuria, site unspecified documented in this encounter [facility] note* Diagnosis Pre-operative examination- Primary [...] 2 diabetes mellitus without complication, unspecified whether jail insulin use (HCC)- Primary Diabetes mellitus treated with insulin (HCC)- Primary documented in this encounter [facility] note* Diagnosis Pre-operative examination- Primary [...] insulin (HCC)- Primary documented in this encounter [facility] note* Diagnosis Pre-operative examination- Primary [...] insulin (HCC)- Primary documented in this encounter [facility] note* Diagnosis Pre-operative examination- Primary [...] insulin (HCC)- Primary documented in this encounter [facility] note* Diagnosis Pre-operative examination- Primary [...] insulin (HCC)- Primary documented in this encounter [facility] note* Diagnosis Pre-operative examination- Primary [...] left upper limb documented in this encounter [facility] note* Diagnosis Pre-operative examination- Primary [...] left arm- Primary documented in this encounter [facility] note* Diagnosis Pre-operative examination- Primary [...] left arm- Primary documented in this encounter [facility] note* Diagnosis Pre-operative examination- Primary [...] left arm- Primary documented in this encounter [facility] note* Diagnosis Pre-operative examination- Primary [...] kidney and ureter documented in this encounter [facility] note* Diagnosis Pre-operative examination- Primary [...] intrathoracic lymph nodes documented in this encounter [facility] note* Diagnosis Pre-operative examination- Primary [...] left arm- Primary documented [facility] this encounter [facility]* Diagnosis Pre-operative examination- Primary Preoperative examination, [...] of breast (HCC) documented in this encounter [facility] note* Diagnosis Onset Date Resolution Status Admit Date 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, 2024 11:07am Hyperlipemia, mixed acute November 02, 2024 11:07am HTN (hypertension) chronic October 072024 11:07am [place] [employer] Work Phone: Evaluation note* Diagnosis Pre-operative examination- [...] left arm- Primary documented in this encounter [facility] note* Diagnosis Pre-operative examination- Primary [...] medication (HCC)- Primary documented in this encounter [facility] note* Diagnosis Pre-operative examination- Primary [...] left arm- Primary documented in this encounter [facility]* Diagnosis Pre-operative examination- Primary Preoperative examination, [...] intrathoracic lymph nodes documented in this encounter [facility] note* Diagnosis Pre-operative examination- Primary [...] (BMI) of 32.0 to 32.9 in adult Hypokalemia- Primary Hypopotassemia Dehydration Malignant neoplasm of left breast in female, estrogen receptor positive, unspecified site of breast (HCC) 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 cardiomyopathy (HCC) Secondary cardiomyopathy, unspecified Lymphedema of left arm Hypokalemia Hypopotassemia documented in this encounter [facility] note* Diagnosis Pre-operative examination- Primary [...] Secondary cardiomyopathy, unspecified Lymphedema of left arm Hypokalemia Hypopotassemia documented in this encounter [facility] note* Diagnosis Pre-operative examination- Primary [...] Primary Unspecified disorder of kidney and ureter Other microscopic hematuria Acute renal insufficiency Unspecified disorder of kidney and ureter Other microscopic hematuria documented in this encounter [facility] note* Diagnosis Pre-operative examination- Primary [...] breast in female, estrogen receptor positive (HCC) 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) documented in this encounter [facility] note* Diagnosis Pre-operative examination- Primary [...] (BMI) of 32.0 to 32.9 in adult Anemia due to stage 3b chronic kidney disease (HCC)- Primary documented in this encounter [facility] note* Diagnosis Pre-operative examination- Primary [...] left arm- Primary documented in this encounter [facility] note* Diagnosis Pre-operative examination- Primary [...] (BMI) of 32.0 to 32.9 in adult Anemia in stage 3b chronic kidney disease (HCC)- Primary Iron malabsorption (HCC) Other specified intestinal malabsorption documented in this encounter [facility] note* Diagnosis Pre-operative examination- Primary [...] left arm- Primary documented in this encounter [facility] note* Diagnosis Pre-operative examination- Primary [...] unspecified malignant neoplasm of intrathoracic lymph nodes Iron malabsorption (HCC) Other specified intestinal malabsorption Anemia in stage 3b chronic kidney disease (HCC) documented in this encounter [facility] note* Diagnosis Pre-operative examination- Primary [...] adult Type 2 diabetes mellitus without complication, with long-term current use of insulin (HCC)- Primary Diabetes mellitus treated with insulin (HCC) documented in this encounter [facility] note* Diagnosis Pre-operative examination- Primary [...] (BMI) of 32.0 to 32.9 in adult Iron malabsorption (HCC)- Primary Other specified intestinal malabsorption Anemia in stage 3b chronic kidney disease (HCC) Malignant neoplasm of overlapping sites of left breast in female, estrogen receptor positive (HCC) 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) [facility] Diagnosis Pre-operative examination- Primary Preoperative examination, [...] (BMI) of 32.0 to 32.9 in adult Recurrent UTI- Primary Urinary tract infection, site not specified UTI symptoms Other symptoms involving urinary system Malignant neoplasm of lower-outer quadrant of left breast of female, estrogen receptor positive (HCC) 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 [facility] Diagnosis Pre-operative examination- Primary Preoperative examination, [...] to 32.9 in adult Urinary frequency- Primary Recurrent UTI Urinary tract infection, site not specified Malignant neoplasm of lower-outer quadrant of left breast of female, estrogen receptor positive (HCC) 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 Renal stones Calculus of kidney [facility] Diagnosis Pre-operative examination- Primary Preoperative examination, [...] breast reconstruction Breast replaced by other means Coronary artery calcification- Primary Coronary atherosclerosis of unspecified type of vessel, ho-chunk or graft Palpitations documented in this encounter [facility]* Diagnosis Pre-operative examination- Primary Preoperative examination, [...] (BMI) of 32.0 to 32.9 in adult Coronary artery calcification- Primary Coronary atherosclerosis of unspecified type of vessel, ho-chunk or graft Palpitations Primary hypertension Unspecified essential hypertension [facility] Diagnosis Pre-operative examination- Primary Preoperative examination, [...] (BMI) of 32.0 to 32.9 in adult Iron malabsorption (HCC)- Primary Other specified intestinal malabsorption Anemia in stage 3b chronic kidney disease (HCC) documented in this encounter [facility] note* Diagnosis Pre-operative examination- Primary [...] (BMI) of 32.0 to 32.9 in adult Iron malabsorption (HCC)- Primary Other specified intestinal malabsorption Malignant neoplasm of left breast in female, estrogen receptor positive, unspecified site of breast (HCC) Anemia in stage 3b chronic kidney disease (HCC) [facility] Diagnosis Pre-operative examination- Primary Preoperative examination, [...] in adult Lymphedema of left arm- Primary Renal stones Calculus of kidney documented [facility] this encounter [facility]* Diagnosis Pre-operative examination- Primary Preoperative examination, [...] positive, unspecified site of breast (HCC)- Primary Renal stones Calculus of kidney documented in this encounter [facility] note* Diagnosis Pre-operative examination- Primary [...] in adult Lymphedema of left arm- Primary Renal stones Calculus of kidney [facility] Author Meri Vu [facility] Note Date/Time November 15, 2024 10 :50pm [facility] Medical Records Department [address] [place] [address] H&P Exam - Hospitalist 11/15/24 2214 MR#: [id number] Acct: [id number] Name: PAT SORTO Rep #:[id number] : 1960 64 From: Meri Vu MD PCP: Dr. Jacinta Rivas MD Status:AD M IN Location: [facility] [place] [id number] HPI - General General Date of Admission: 11/15/24 Date of Service: 11/15/24 Chief Complaint: Decreased oral intake, decreased UOP, diarrhea. HPI Narrative The patient is a 64 y/o F w/ PMHx: CKD stage II per GFR trending, Chronic anemia, Overweight, GERD, Diabetes mellitus type II, HTN, HLD, Hx L breast CA unclear specific type s/p L total breast mastectomy considered in remission, Primary biliary cirrhosis who presents to the [facility] ED on 11/15/2024 with significant fatigue, malaise, increasing weakness as well as loose stools over the last 3 days with decreased oral intake with subjective fevers and chills and diaphoresis with decreased urine output prompting eventualED evaluation. She does report that she had urinary intact infection approximate 1 month prior specifically E. coli and at that time was treated withAugmentin as far as recent antibiotic therapies but none since. Workup in the EDincluded T97.8, heart rate 92, BP 103/67, respiratory 18, 99% on room air, notable orthostatic vital signs although slightly atypical with laying 95/59, sitting 121/61, standing 93/52 with no heart rate alteration, most recent repeatvitals of heart rate 99, BP 101/55, respiratory rate 16, 97% on room air, CBC with WC 12.9, hemoglobin 9.2, MCV 82, platelet 135 with left shift, BMP with sodium 130, potassium 2.8, chloride 93, BUN/canaille 45/3.18, GFR 16, glucose 123, urinalysis noted to be cloudy, protein 100, occult blood 250, nitrate negative, leukocyte esterase 500 with urine WBCs greater than 100 with 2+ bacteria with urine culture pending per ED, rapid SARS COVID/)/RSV PCR negative. In the ED patient ministered 1 L normal saline, potassium 40 mill equivalent p.o. x 1, IV Rocephin 1 g x 1. [facility] History of removal of left breast implant (05/18/24) Acute kidney injury Chemotherapy induced cardiomyopathy Malignant neoplasm of lower-outer quadrant of left breast of female, estrogen receptor positive Type 2 diabetes mellitus with hyperglycemia Primary biliary cirrhosis History of chemotherapy Breast cancer Abnormal mammogram of left breast HTN (hypertension) Home Medications ?Medication ?Instructions ?Recorded ?Last Taken ?Type ascorbic acid (vitamin C) 100 mg 500 mg PO QDAY 05/20/24 History tablet vitamin E (dl, acetate) 45 mg (100 400 unit PO QDAY 05/20/24 History unit) capsule aspirin 81 mg chewable tablet 81 mg PO ONCE 04/04/17 0 05/20/24 History cyanocobalamin (vitamin B-12) 1,000 mcg PO DAILY 04/2305/20/24 History 1,000 mcg capsule ergocalciferol (vitamin D2) 1,250 50,000 unit PO QWEEK 09/03/23 Unknown History mcg (50,000 unit) capsule (Vitamin D2) everolimus (antineoplastic) 10 mg 10 mg PO DAILY 09/0205/20/24 History tablet exemestane 25 mg tablet 25 mg PO DAILY 09/03/2305/09 History lorazepam 0.5 mg tablet 0.5 mg PO TID PRN anxiety Unknown History pantoprazole 40 mg tablet,delayed 40 mg PO DAILY 09/0205/20/24 History release calcium carbonate 1,000 mg PO DAILY 10/09/23 U nknown History amlodipine 5 mg tablet 5 mg PO QDAY #90 tabs Unknown Rx insulin glargine 100 unit/mL (3 20 unit subcut QAM Unknown History mL) subcutaneous pen (Lantus Solostar U-100 Insulin) metoprolol succinate 25 mg 25 mg PO QDAY 07/02/24 Unkn own History tablet,extended release 24 hr ursodiol 500 mg tablet (LEENA Forte) 1,250 mg PO QDAY 0 07/02/24 Unknown History hydrochlorothiazide 12.5 mg tablet 12.5 mg PO QDAY Unknown History losartan 25 mg tablet 50 mg PO DAILY 11/15/24 Unkn own History tirzepatide 2.5 mg/0.5 mL 2.5 mg subcut QWEEK 11/15/24 Unknown History subcutaneous pen injector (Mounjaro) trazodone 50 mg tablet 50 mg PO QHS 11/15/24 Unknow n History Allergy/AdvReac Type Severity Reaction Status Date / Time No Known Allergies Allergy Verified 11/02/24 11:11 Family History Mother Diabetes Heart disease Hypertension CVA (cerebral vascular accident) Father Diabetes Hypertension Surgical History Hx of total mastectomy of left breast S/P breast biopsy S/P total knee replacement History of section Social History household members: spouse Smoking Status: Never smoker alcohol intake: current alcohol intake frequency: 0-2 drinks per day substance use type: does not use ROS ROS Narrative Admission Review of Systems: CONSTITUTIONAL: No weight loss, + fever, chills, weakness or fatigue. HEENT: Eyes: No visual loss, blurred vision, double vision or yellow sclerae. Ears, Nose, Throat: No hearing loss, sneezing, congestion, runny nose or sore throat. SKIN: No rash or itching, lesions, wounds. CARDIOVASCULAR: No chest pain, chest pressure or chest discomfort, palpitations,edema, orthopnea, syncopal events. RESPIRATORY: No shortness of breath, cough or sputum, wheezing, hemoptysis. GASTROINTESTINAL: + anorexia, nausea, diarrhea. No vomiting, abdominal pain, melena, BRBPR. GENITOURINARY: + Decreased urine output. No dysuria, frequency, urgency or retention. NEUROLOGICAL: No headache, dizziness, syncope, paralysis, ataxia, numbness or tingling in the extremities, focal weakness, change in bowel or bladder control,seizure. MUSCULOSKELETAL: + muscle, back pain, joint pain or stiffness. HEMATOLOGIC: + Chronic anemia, easy bleeding/bruising. LYMPHATICS: No enlarged nodes. No history of splenectomy. PSYCHIATRIC: + History of anxiety. ENDOCRINOLOGIC: No reports of sweating, cold or heat intolerance. No polyuria orpolydipsia. ALLERGIES: No history of asthma, hives, eczema or rhinitis. Vital Signs Vital Signs Vital Signs: 11/15/24 17:38 11/15/24 17:38 11/15/24 19:38 Temperature 97.8 F Temperature Source Oral Pulse Rate 92 86 Pulse Rate [Lying] Pulse Rate [Sitting (for 1 minute prior to obtaining)] Pulse Rate [Standing (for 1 minute prior to obtaining)] Respiratory Rate 18 16 Respiratory Effort Normal Non-Labored Respiratory Pattern Normal Blood Pressure 103/67 103/62 Blood Pressure [Lying] Blood Pressure [Sitting (for 1 minute prior to obtaining)] Blood Pressure [Standing (for 1 minute prior to obtaining)] Blood Pressure Mean 79 75 Blood Pressure Mean [Lying] Blood Pressure Mean [Sitting (for 1 minute prior to obtaining)] Blood Pressure Mean [Standing (for 1 minute prior to obtaining)] Pulse Ox 99 96 Oxygen Delivery Method Room Air Room Air 11/15/24 19:56 11/15/24 21:00 Temperature Temperature Source Pulse Rate 99 Pulse Rate [Lying] 90 Pulse Rate [Sitting (for 1 minute prior to obtaining)] 98 Pulse Rate [Standing (for 1 minute prior to obtaining)] 93 Respiratory Rate 16 Respiratory Effort Respiratory Pattern Blood Pressure 101/55 L Blood Pressure [Lying] 95/59 L Blood Pressure [Sitting (for 1 minute prior to obtaining)] 121/61 H Blood Pressure [Standing (for 1 minute prior to obtaining)] 93/52 L Blood Pressure Mean 70 Blood Pressure Mean [Lying] 71 Blood Pressure Mean [Sitting (for 1 minute prior to obtaining)] 81 Blood Pressure Mean [Standing (for 1 minute prior to obtaining)] 65 Pulse Ox 97 Oxygen Delivery Method Room Air Weight Weight: 175 lb Body Mass Index (BMI) 28.2 Physical Exam Narrative Physical Examination: General: Awake, alert, oriented x 3 and cooperative, seated upright in the ED bed in no apparent distress, fatigued but denies any acute complaints at this time. Skin: Normal color, normal turgor, no icterus, no cyanosis except occasional stage ecchymoses, abrasion. HEENT: AT/NC, EOMI, PERRLA, moderately dry MM, no carotid bruits or JVD noted. Lungs: CTA bilaterally, moderate effort, mild decrease BL bases, no rales, ronchi or wheezing. Heart: Mildly tachycardic with regular rhythm; no gallop, rub audible. Abdomen: Soft, overweight, NTTP, ND, mildly hyperactive BS, no appreciated HSM. Extremities: No cyanosis, no clubbing, no significant pitting edema noted. Neurological: Patient awake, alert, oriented as noted, cognitive function intact; pupils equally reactive to light and accommodation, cranial nerves grossly normal, moving all 4 extremities, no focal deficits, strength moderatelyglobally decreased secondary to acute presentation complaints. Psychiatric: Affect appears mildly flat, fatigued, no acute evidence of depressive or anxiety feelings but does have underlying anxiety history. Results Lab / Micro Data 11/15/24 18:47 11/15/24 18:47 Labs: Laboratory Results - last 24 hr 11/15/24 18:47: WBC 12.9 H, RBC 3.28 L, Hgb 9.2 L, Hct 26.9 L, MCV 82.0, MCH 28.0, MCHC 34.2, RDW Std Deviation 39.1, RDW Coeff of Rosie 13.0, Plt Count 135 L,MPV 10.0, Immature Gran % (Auto) 0.300, Neut % (Auto) 86.5 H, Lymph % (Auto) 8.9L, Pettis % (Auto) 4.2, Eos % (Auto) 0.0, Baso % (Auto) 0.1, Absolute Neuts (auto)11.1 H, Absolute Lymphs (auto) 1.15, Nucleated RBC % 0, Sodium 130 L, Potassium 2.8 L, Chloride 93 L, Carbon Dioxide 22.6, Anion Gap 14, BUN 45 H, Creatinine 3.18 H, Estim Creat Clear Calc 18.75 L, Est GFR (MDRD) Non-Af 16 L, BUN/Creatinine Ratio 14.1, Glucose 123 H, Calcium 7.7 11/15/24 19:12: Urine Color Yellow, Urine Clarity Sl. Cloudy, Urine pH 5.0, Ur Specific [place] 1.010, Urine Protein 100 H, Urine Glucose (UA) Normal, Urine Ketones Negative, Urine Occult Blood 250 H, Urine Nitrite Negative, Urine Bilirubin Negative, Urine Urobilinogen Normal, Ur Leukocyte Esterase 500 H, Urine RBC 0-5 SEEN, Urine WBC >100 SEEN, Ur Squamous Epith Cells 0 SEEN, Ur Transition Epith Cell 0-5 SEEN, Ur Renal Epithelial Cell 0-5 SEEN, Urine Bacteria 2+, Urine Mucus 0 SEEN Micro: Microbiology 11/15/24 19:12 Mucosa - Nose SARS-CoV-2, Influenza & RSV (PCR) - Final Assessment & Plan Assessment/Plan (1) Urinary tract infection: PLAN: Plan The patient is a 64 y/o F w/ PMHx: CKD stage II per GFR trending, Chronic anemia, Overweight, GERD, Diabetes mellitus type II, HTN, HLD, Hx L breast CA unclear specific type s/p L total breast mastectomy considered in remission, Primary biliary cirrhosis who presents to the [facility] ED on 11/15/2024 with significant fatigue, malaise, increasing weakness as well as loose stools over the last 3 days with decreased oral intake with subjective fevers and chills and diaphoresis with decreased urine output prompting eventualED evaluation. #1. Acute Urinary Tract Infection: Will admit to [facility] upon ED evaluation remarkable, pending UCx, will continue IVFs, monitor I/Os, continue IV Rocephin w/ transition as able pending sensitivities and speciation. Bld cx x 2 obtained in the ED. #2. Acute kidney injury on CKD stage II per previous GFR trending although has occasionally vacillated: Secondary to acute presentation as noted #1, in addition to GI losses and poor oral intake hypovolemic component. Admission BUN/Cr 45/3.18, GFR 16, prior baseline creatinine noted to be primarily 0.8-1.1.Will continue to aggressively hydrate, hold nephrotoxic medications and repeat chemistry in AM. #3. Persistent diarrhea, potentially gastroenteritis versus secondary to #1: Will continue aggressive hydration, will obtain c diff, stool cx to be cautioushowever do suspect likely secondary to acute complicated urinary tract infection, as noted will maintain on IV Rocephin in the interim. #4. Thrombocytopenia, acute: Admission platelets 135, no prior significant thrombocytopenia noted, potentially reactive given acute presentation as noted above, will trend CBC. Cautiously using chemoprophylaxis as noted. #5. Hyponatremia, hypochloremia, suspected hypovolemic etiology secondary to GIlosses and poor intake: Admission sodium 130, chloride 93, likely hypovolemic especially given #1 presentation, will continue aggressive hydration, repeat CMPin AM. #6. Hypokalemia: Admission K+ 2.8, magnesium level requested, supplementation given, repeat level in AM. #7. Hx L breast CA unclear specific type: s/p L total breast mastectomy considered in remission, encouraged continued outpatient follow-up as previouslyarranged. Clarifying chronic regimen as listed on everolimus and exemestane. #8. Primary biliary cirrhosis: Noted in history, will obtain CMP in a.m. is only BMP obtained upon presentation, will continue patient on ursodiol regimen, continue to encourage outpatient GI evaluation and follow-up. #9. Hypertension: Will temporally hold hypertensive regimen as BP low normal inthe ED as well as LAXMI, resume once clinically appropriate. #10. Chronic normocytic anemia: Admission hemoglobin 9.2, MCV 82, has vacillated, baseline hemoglobin more recently noted to be low 10 range, will continue to trend. #11. Overweight: Weight loss and lifestyle changes encouraged. #12. Anxiety: Will cautiously continue patient low-dose as needed lorazepam regimen, hold for sedation, do not want to cause patient withdrawal but if necessary with worsening renal function will hold. #13. Diabetes mellitus type II: Hold oral home regimen, continue home insulin regimen, encourage oral intake/ADA diet, accu checks w/ ISS. #14. GERD: Will continue patient on PPI. #15. Hyperlipidemia: Not on regimen, potential secondary to underlying primary biliary cirrhosis, defer to outpatient. #16. DVT prophylaxis: Heparin. #17. CODE status: Patient GUILHERME is her and living will is currently in place. Discussed CODE status at length including difference between FULL code, DNR-CCA and DNR-CC status. Following discussions about the differences in these status, requested Full Code status. Charges/Coding Visit Charges Inpatient E&M: 95286 Init Hosp L3 11/15/240 <Electronically signed by Meri Vu MD> Cosigner Signature (if applicable): CC: Dr. Meri Vu MD; Dr. Jacinta Rivas MD~ Signed [facility] Work Phone: Hospital Discharge instructionsAdditional Instructions I discussed your case with your oncologist, he feels that you would be able to hold your everolimus and exemestane for a week or 2 while you are in [facility] to allow time for your kidneys to recover. I discontinued all of your blood pressure medications except for your amlodipine. I do recommend that you follow-up with your PCP when you return from [facility] to see if any further adjustments need to be made. I gave you 10 days worth of cefdinir 300 mg p.o. daily this antibiotic is dose adjusted because of your kidney disease. Please take 5 tablets and then take the remainder with you to [facility] in case you develop symptoms of a UTI while there.[facility] Work Phone: Progress note Author Annabel [facility] Note Date/Time November 18, 2024 12 :26pm [facility] Medical Records Department [address] [place] [address] Progress Note - Nephrology 11/18/24 1222 MR#: [id number] Acct: [id number] Name: PAT SORTO Rep #:[id number] : 1960 64 From: Annabel Slaughter PCP: Dr. Jacinta Rivas MD Status:AD M IN Location: MS3 [id number] Subjective Subjective Creatinine slightly improved today at 3.0. BP stable. No uremic symptoms. Urine output good Objective Data Objective Data Vital Signs: Vital Signs Temp Pulse Resp BP Pulse Ox O2 Del Method O2 Flow Rate 99.0 F 85 18 123/75 H 98 Nasal Cannula 2 11/18/24 08:00 11/18/24 10:25 11/18/24 08:00 11/18/24 08:00 11/18/24 08:00 11/18/24 08:00 11/18/24 08:00 Oxygen Flow Rate (L/min) 2 Oxygen Delivery Method Nasal Cannula Weight: 82.1 kg Body Mass Index (BMI) 29.0 Intake & Output: Intake and Output for Last 24 Hours 11/16/24 11/17/24 11/18/24 23:59 23:59 23:59 Intake Total 2050 / 2050 1795 / 1795 455 / 455 Output Total 1050 / 1050 1000 / 1000 Balance 1000 / 1000 795 / 795 455 / 455 Lab / Micro Data 11/18/24 05:18 11/18/24 05:18 Labs: Laboratory Results - last 24 hr 11/17/24 10:15: U Random Total Protein 62.6 H, Urine Creatinine 88.30, Protein/Creatinin Ratio 709 H 11/17/24 16:09: NONA-1 Antibody TNP, Sm (Reed) Antibody TNP, FIRER WATERTENDER Antibody TNP, Scl-70 Scleroderma Ab TNP, Antichromatin Antibodies TNP, Centromere B Antibody TNP 11/17/24 22:18: POC Glucose 115 H 11/18/24 05:18: WBC 5.7, RBC 2.86 L, Hgb 7.9 L, Hct 23.0 L, MCV 80.4 L, MCH 27.6, MCHC 34.3, RDW Std Deviation 37.3, RDW Coeff of Rosie 12.8, Plt Count 113 L,MPV 11.3, Immature Gran % (Auto) 0.300, Neut % (Auto) 67.2, Lymph % (Auto) 18.5 L, Pettis % (Auto) 13.5 H, Eos % (Auto) 0.2, Baso % (Auto) 0.3, Absolute Neuts (auto) 3.8, Absolute Lymphs (auto) 1.06, Nucleated RBC % 0, Immature Plt Fraction 3.4, Retic Count 1.12, Immature Retic Fraction 6.20, Retic Hgb Equivalent 24.7 L, Sodium 137, Potassium 3.0 L, Chloride 103, Carbon Dioxide 19.2 L, Anion Gap 15, BUN 35 H, Creatinine 3.06 H, Estim Creat Clear Calc 19.74 L, Est GFR (MDRD) Non-Af 16 L, BUN/Creatinine Ratio 11.5, Glucose 87, Calcium 7.3 L, C-React Prot Ext Range 176.00 H 11/18/24 06:45: POC Glucose 87 11/18/24 11:32: POC Glucose 141 H Micro: Microbiology 11/15/24 22:38 Blood Culture (Wb) - Anticubital Right Blood Culture - Preliminary No growth in 48 hours. 11/15/24 22:38 Blood Culture (Wb) - Right Hand Blood Culture - Preliminary No growth in 48 hours. 11/17/24 10:00 Stool Stool Occult Blood (ISRAEL) - Final 11/15/24 19:12 Urine, Clean Catch Urine Culture - Final Escherichia coli Gram negative jessie 11/15/24 19:12 Mucosa - Nose SARS-CoV-2, Influenza & RSV (PCR) - Final Radiography Diagnostic Testing: Radiology Impression Renal Ultrasound 11/17/24 14:48 IMPRESSION: 1. Nonobstructing right midpole renal calculus measuring 1 cm. 2. No hydronephrosis is visualized in bilateral kidneys. Reading Location: [facility] Physical Exam Const alert and oriented x3 Resp clear to auscultation bilaterally Cardio regular rate GI non-tender and non-distended Auscultation: normoactive bowel sounds Palpation: soft Extremity Extremity Narrative: lymphedema LUE Skin no rashes or lesions noted Neuro CN's II-XII intact bilaterally Psych cooperative Assessment & Plan Assessment/Plan (1) Acute kidney injury: PLAN: Creatinine 0.8 in Dec 2023, progressed to 1.09 on 08/04/24, 1.47 eGFR 39cc/min on 09/01/24 to 1.96 on 09/22/24. Creatinine 1.86 eGFR 30cc/min on 10/27/24. Creatinine improved slightly to 3.0. UOP good. Continue to hold ARB, HCTZ. Check labs later this week. DW hospitalist (2) Hypokalemia: PLAN: likely due to HCTZ, poor intake, diarrhea, chemotherapy. Potassium 3.0 (3) Urinary tract infection: (4) HTN (hypertension): QUALIFIERS: Hypertension type: primary hypertension Qualified Code(s): I10 - Essential (primary) hypertension PLAN: hold BP meds, resume amlodipine if needed (5) History of chemotherapy: PLAN: both aromasin and everolimus can increase serum creatinine. Consider reducing dose due to rising creatinine. Defer to oncology (6) Type 2 diabetes mellitus with hyperglycemia: PLAN: chemotherapy induced on insulin (7) Breast cancer metastasized to axillary lymph node: QUALIFIERS: Laterality: left Qualified Code(s): C50.912 - Malignant neoplasm of unspecified site of left female breast; C77.3 - Secondary and unspecified malignant neoplasm of axilla and upper limb lymph nodes (8) Iron deficiency anemia: PLAN: iv iron (9) Hypocalcemia: PLAN: s/p zometa dose on 11/09/24 11/18/24 1226 <Electronically signed by Annabel Carter DO> Cosigner Signature (if applicable): CC: ~ Signed [facility] Work Phone: [facility] for referral (narrative)* Diagnostic Procedure Only (Routine) - Authorized Specialty Diagnoses / Procedures Referred By Contac t Referred To Contact [facility] Diagnoses Malignant neoplasm of lower-outer quadrant of left breast of female, estrogen receptor positive (HCC) Procedures US BREAST LTD LEFT US BREAST UNI REAL [place] [address] [place] [id number] [facility] [address] [place] [phone] Referral ID Status Reason Start Date Expiration Date Visits Requested Visits Authorized [id number] Authorized Auto-Generat ed Referral 07/04/2022 08/03/2023 1 1 [facility] for referral (narrative)* Diagnostic Procedure Only (Routine) - Pending Review Specialty Diagnoses / Procedures Referred By Contac t Referred To Contact BR [facility] Diagnoses Abnormal ultrasound of breast Procedures US BIOPSY BREAST LEFT BX BREAST W/DEVICE 1ST LESION ULTRASOUND GUID Chaz Birmingham MD [address] [place] [address] [facility] [address] [place] [phone] Referral ID Status Reason Start Date Expiration Date Visits Requested Visits Authorized [id number] Pending Review Auto-Generat ed Referral 07/19/2022 08/18/2023 1 1 [facility] for referral (narrative)* Outpatient Procedure (Urgent) - Pending Review Specialty Diagnoses / Procedures Referred By Contac t Referred To [facility] Diagnoses Adenopathy Procedures ECG COMPLETE ECG ROUTINE ECG W/LEAST 12 LDS W/I&R Kam Dangelo MD [address] [place] [address] [place] [id number] Referral ID Status Reason Start Date Expiration Date Visits Requested Visits Authorized [id number] Pending Review Auto-Generat ed Referral 08/06/2022 08/06/2023 1 1 [facility] for referral (narrative)* Outpatient Procedure (Routine) - Pending Review Specialty Diagnoses / Procedures Referred By Contac t Referred To [facility] Diagnoses Malignant neoplasm of lower-outer quadrant of left breast of female, estrogen receptor positive (HCC) 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 (HCC) Procedures ECG COMPLETE ECG ROUTINE ECG W/LEAST 12 LDS W/I&R Serena Carrasco DO [address] [place] [address] [address] Referral ID Status Reason Start Date Expiration Date Visits Requested Visits Authorized [id number] Pending Review Auto-Generat ed Referral 11/01/2022 11/01/2023 1 1 [facility] for referral (narrative)* Outpatient Procedure (Routine) - Authorized Specialty Diagnoses / Procedures Referred By Contac t Referred To [facility] Diagnoses Carcinoma of left breast metastatic to skin (HCC) Procedures ECG COMPLETE ECG ROUTINE ECG W/LEAST 12 LDS W/I&R Serena Carrasco, [address] [place] [address] [facility] [address] [place] [address] Referral ID Status Reason Start Date Expiration Date Visits Requested Visits Authorized [id number] Authorized Auto-Generat ed Referral 11/28/2022 11/28/2023 2 2 [facility] for referral (narrative)* Diagnostic Procedure Only [...] PET IMAGING CT ATTENUATION SKULL BASE MID-THIGH Luis Alberto Raman APRN.CNP [address] [place] [address] [facility] [address] [place] [address] Referral ID Status Reason Start Date Expiration Date Visits Requested Visits Authorized [id number] Authorized Auto-Generat ed Referral 3 02/13/2023 1 1 [facility] for referral (narrative)* Diagnostic Procedure Only [...] PET IMAGING CT ATTENUATION SKULL BASE MID-THIGH Luis Alberto Raman APRN.CNP [address] [place] [address] [facility] [address] [place], [place] [id number] Referral ID Status Reason Start Date Expiration Date V isits Requested Visits Authorized [id number] Closed Auto-Generate d Referral 01/15/2023 02/13/2023 1 1 [facility] for referral (narrative)* Diagnostic Procedure Only (Routine) - Pending Review Specialty Diagnoses / Procedures Referred By Contac t Referred To Contact XR IMAGING Diagnoses Malignant neoplasm of lower-outer quadrant of left breast of female, estrogen receptor positive (HCC) 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) Abnormal positron emission tomography (PET) scan Procedures XR THORACIC LIMITED 2V AP/LAT RADEX SPINE THORACIC 2 VIEWS Luis Alberto Raman APRN.CNP [address] [place] [address] [place] [address] Referral ID Status Reason Start Date Expiration Date Visits Requested Visits Authorized [id number] Pending Review Auto-Generat ed Referral 02/28/2024 1 1 [facility] for referral (narrative)* Diagnostic Procedure Only (Routine) - Authorized Specialty Diagnoses / Procedures Referred By Contac t Referred To Contact MOLECULAR & FUNCTIONAL IMAGING Diagnoses Malignant neoplasm of lower-outer quadrant of left breast of female, estrogen receptor positive (HCC) Procedures NM PET/CT SKULL-THIGH SUBSEQUENT PET IMAGING CT ATTENUATION SKULL BASE MID-THIGH Serena Carrasco DO [address] [place] [address] [facility] [address] [place] [address] Referral ID Status Reason Start Date Expiration Date Visits Requested Visits Authorized [id number] Authorized Auto-Generat ed Referral 08/05/2023 09/03/2023 2 2 * Outpatient Procedure (Routine) - Authorized Specialty Diagnoses / Procedures Referred By Contac t Referred To Contact [facility] Diagnoses Chemotherapy-induced cardiomyopathy (HCC) Encounter for monitoring cardiotoxic drug therapy Procedures ECHO ECHO TTHRC R-T 2D W/WOM-MODE COMPL SPEC&COLR D Serena Carrasco DO [address] [place] [address] [facility] [address] [place] [address] Referral ID Status Reason Start Date Expiration Date Visits Requested Visits Authorized [id number] Authorized Auto-Generat ed Referral 08/05/2023 08/04/2024 1 1 T [facility] for referral (narrative)* Diagnostic Procedure Only (Routine) - Additional Clinical Info Needed Specialty Diagnoses / Procedures Referred By Parmjit cabrera Referred To Contact MOLECULAR & FUNCTIONAL IMAGING Diagnoses 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) Procedures NM PET/CT SKULL-THIGH SUBSEQUENT PET IMAGING CT ATTENUATION SKULL BASE MID-THIGH Serena Carrasco DO [address] [place] [address] [facility] [address] [phone] Referral ID Status Reason Start Date Expiration Date Visits Requested Visits Authorized [id number] Additional Clinical Info Needed Auto-Generat ed Referral 11/11/2023 12/10/2024 1 1 [facility] for referral (narrative)* Diagnostic Procedure Only (Routine) - Authorized Specialty Diagnoses / Procedures Referred By Contac t Referred To Contact US IMAGING Diagnoses Right upper quadrant pain Procedures US ABD RIGHT UPPER QUADRANT US ABDOMINAL REAL TIME W/IMAGE LIMITED Serena Carrasco DO [address] [place] [address] [place] [address] Referral ID Status Reason Start Date Expiration Date Visits Requested Visits Authorized [id number] Authorized Auto-Generat ed Referral 11/13/2023 12/12/2024 1 1 [facility] for referral (narrative)* Diagnostic Procedure Only (Routine) - Closed Specialty Diagnoses / Procedures [facility] FUNCTIONAL [facility]AGING Diagnoses 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) Procedures NM PET/CT SKULL-THIGH SUBSEQUENT PET IMAGING CT ATTENUATION SKULL BASE MID-THIGH Serena Carrasco DO [address] [place] [address] [facility] [address] [place] [address] Referral ID Status Reason Start Date Expiration Date V isits Requested Visits Authorized [id number] Closed Auto-Generate d Referral 12/13/2023 01/11/2024 1 1 [facility] for referral (narrative)* Diagnostic Procedure Only (Routine) - Closed Specialty Diagnoses / Procedures [facility] To Contact XR IM[facility] Diagnoses Right hip pain Procedures XR PELVIS 1V AP RADIOLOGIC EXAMINATION PELVIS 1/2 VIEWS Adebayo Avila PA-C [address] [place] [address] [place] [address] Referral ID Status Reason Start Date Expiration Date V isits Requested Visits Authorized [id number] Closed Auto-Generate d Referral 03/20/2022 04/19/[address] [facility] for referral (narrative)* Diagnostic Procedure Only (Routine) - Pending Review Specialty Diagnoses / Procedures [facility] Referred To Contact MOLECULAR [...] MID-THIGH Serena Carrasco DO [address] [place] [address] [facility] [address] [place] [phone] Referral ID Status Reason Start Date Expiration Date Visits Requested Visits Authorized [id number] Pending Review Auto-Generat ed Referral 01/06/2024 02/04/2025 1 1 * Consult, Test, Treat (Routine) - Authorized Specialty Diagnoses / Procedures Referred By Contac t Referred To Contact Endocrinology Diagnoses Type 2 diabetes mellitus with other specified complication, without long-term current use of insulin (HCC) Procedures CONSULT TO ENDOCRINOLOGY OFFICE/OUTPATIENT NEW HIGH MDM 60 MINUTES Serena Carrasco DO [address] [facility] [place] [address] Referral ID Status Reason Start Date Expiration Date Visits Requested Visits Authorized [id number] Authorized PCP Requested Referral 01/06/2024 01/05/2025 1 1 [facility] for referral (narrative)* Diagnostic Procedure Only (Routine) - Closed Specialty Diagnoses / Procedures [facility] To Contact XR IMAGING Diagnoses Pain in right hip Procedures XR HIP 2V AP/LAT RIGHT (AK,FL,ME,UN) RADEX HIP UNILATERAL WITH PELVIS 2-3 VIEWS Adebayo Avila PA-C [address] [place] [address] [place] [address] Referral ID Status Reason Start Date Expiration Date V isits Requested Visits Authorized [id number] Closed Auto-Generate d Referral 01/03/2024 02/01/2025 1 1 [facility] for referral (narrative)* Diagnostic Procedure Only (Routine) - New Request Specialty Diagnoses / Procedures [facility] To [facility] Diagnoses Malignant neoplasm of lower-outer quadrant of left breast of female, estrogen receptor positive (HCC) Procedures SAMANTHA DIAGNOSTIC RIGHT DIAGNOSTIC MAMMOGRAPHY COMPUTER[place] [address] [place] [address] [facility] [address] [place] [address] Referral ID Status Reason Start Date Expiration Date Visits Requested Visits Authorized [id number] New Request Auto-Generat ed Referral 03/28/2025 1 1 [facility] for referral (narrative)* Diagnostic Procedure Only (Routine) - Authorized Specialty Diagnoses / Procedures Referred By Contac t Referred To Contact US IMAGING Diagnoses Malignant neoplasm of left breast in female, estrogen receptor positive, unspecified site of breast (HCC) Swelling of limb Procedures US DVT UPPER LEFT DUP-SCAN XTR VEINS UNILATERAL/LIMITED STUDY Serena Carrasco DO [address] [place] [address] [place] [address] Referral ID Status Reason Start Date Expiration Date Visits Requested Visits Authorized [id number] Authorized Auto-Generat ed Referral 04/10/2024 05/10/2025 1 [...] UNILATERAL/LIMITED STUDY Serena Carrasco DO [address] [place] [address] [facility] [address] [facility] [place] [address] Referral ID Status Reason Start Date Expiration Date Visits Requested Visits Authorized [id number] New Request Auto-Generat ed Referral 04/10/2024 04/10/2025 1 1 [facility] for referral (narrative)* Diagnostic Procedure Only (Routine) - Closed Specialty Diagnoses / Procedures Referred By Contac t Referred To Contact US IMAGING Diagnoses Malignant neoplasm of left breast in female, estrogen receptor positive, unspecified site of breast (HCC) Swelling of limb Procedures US DVT UPPER LEFT DUP-SCAN XTR VEINS UNILATERAL/LIMITED STUDY Serena Carrasco DO [address] [place] [address] [place] [address] Referral ID Status Reason Start Date Expiration Date V isits Requested Visits Authorized [id number] Closed Auto-Generate d Referral 04/10/2024 05/10/[address] [facility] for referral (narrative)* Diagnostic Procedure Only [...] BASE MID-THIGH Serena Carrasco DO [address] [place] [address] Molecular & Functional Imaging [address] [place] [address] Referral ID Status Reason Start Date Expiration Date Visits Requested Visits Authorized [id number] Authorized Auto-Generat ed Referral 04/13/2024 05/13/[address] [facility] for referral (narrative)No reason for referral information [facility] Phone: Reason for visit Narrative* Diagnostic Procedure Only (Routine) [...] PET IMAGING CT ATTENUATION SKULL BASE MID-THIGH Luis Alberto Raman FELICIA.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 [address] [place] [address] Molecular & Functional Imaging [address] [place] [address] Referral ID Status Reason Start Date Expiration Date V isits Requested Visits Authorized [id number] Closed Auto-Generate d Referral 01/15/2023 02/13/2023 1 1 [facility] for visit Narrative* Diagnostic Procedure Only [...] MID-THIGH Serena Carrasco, DO [address] [place] [id number] Molecular & Functional Imaging [address] [place] [address] Referral ID Status Reason Start Date Expiration Date V isits Requested Visits Authorized [id number] Closed Auto-Generate d Referral 08/16/2023 09/14/2023 2 2 [facility] for visit Narrative* Diagnostic Procedure Only (Routine) - Closed Specialty Diagnoses / Procedures Referred By Contac t Referred To Contact US IMAGING Diagnoses Right upper quadrant pain Procedures US ABD RIGHT UPPER QUADRANT US ABDOMINAL REAL TIME W/IMAGE LIMITED Serena Carrasco, DO [address] [facility] [place] [address] [place] [address] Referral ID Status Reason Start Date Expiration Date V isits Requested Visits Authorized [id number] Closed Auto-Generate d Referral 11/13/2023 12/12/2024 1 1 [facility] for visit Narrative* Diagnostic Procedure Only (Routine) - Closed Specialty Diagnoses / Procedures Referred By Contac t Referred To Contact MOLECULAR & FUNCTIONAL IMAGING Diagnoses 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) Procedures NM PET/CT SKULL-THIGH SUBSEQUENT PET IMAGING CT ATTENUATION SKULL BASE MID-THIGH Serena Carrasco, DO [address] [place] [address] Molecular & Functional Imaging [address] [place] [address] Referral ID Status Reason Start Date Expiration Date V isits Requested Visits Authorized [id number] Closed Auto-Generate d Referral 12/13/2023 01/11/2024 1 1 [facility] for visit Narrative* Diagnostic Procedure Only (Routine) - Closed Specialty Diagnoses / Procedures Referred By Contac t Referred To Contact XR IMAGING Diagnoses Right hip pain Procedures XR PELVIS 1V AP RADIOLOGIC EXAMINATION PELVIS 1/2 VIEWS Adebayo Avila PA-C [address] [place] [address] [place] [address] Referral ID Status Reason Start Date Expiration Date V isits Requested Visits Authorized [id number] Closed Auto-Generate d Referral 03/20/2022 04/19/2023 1 1 [facility] for visit Narrative* Diagnostic Procedure Only (Routine) - Closed Specialty Diagnoses / Procedures Referred By Contac t Referred To Contact XR IMAGING Diagnoses Pain in right hip Procedures XR HIP 2V AP/LAT RIGHT (AK,FL,ME,UN) RADEX HIP UNILATERAL WITH PELVIS 2-3 VIEWS Adebayo Avila PA-C [address] [place] [address] [place] [address] Referral ID Status Reason Start Date Expiration Date V isits Requested Visits Authorized [id number] Closed Auto-Generate d Referral 01/03/2024 02/01/2025 1 1 [facility] for visit Narrative* Diagnostic Procedure Only [...] MID-THIGH Serena Carrasco, DO [address] [place] [address] Molecular & Functional Imaging [address] [place] [address] Referral ID Status Reason Start Date Expiration Date V isits Requested Visits Authorized [id number] Closed Auto-Generate d Referral 01/06/2024 02/04/2025 1 1 [facility] for visit Narrative* Diagnostic Procedure Only (Routine) - Closed Specialty Diagnoses / Procedures Referred By Parmjit cabrera Referred To Contact US IMAGING Diagnoses Malignant neoplasm of left breast in female, estrogen receptor positive, unspecified site of breast (HCC) Swelling of limb Procedures US DVT UPPER LEFT DUP-SCAN XTR VEINS UNILATERAL/LIMITED STUDY Serena Carrasco DO [address] [place] [address] [place] [address] Referral ID Status Reason Start Date Expiration Date V isits Requested Visits Authorized [id number] Closed Auto-Generate d Referral 04/10/2024 05/10/2025 1 1 [facility] for visit Narrative* Auth/Cert (Routine) Specialty Diagnoses / Procedures Referred By Parmjit cabrera Referred To Contact [facility] Diagnoses Malignant neoplasm of lower-outer [...] ALL INTRACAPSULAR CONTENTS MASTECTOMY PARTIAL Ambulatory Surgery [address] [place] [address] Referral ID Status Reason Start Date Expiration Date Visits Re quested Visits Authorized [id number] 1 1 [facility] for visit Narrative* Diagnostic Procedure Only [...] MID-THIGH Serena Carrasco DO [address] [place] [address] Phone: tel: fax: Molecular Imaging [address] [place] [address] Phone: tel: Referral ID Status Reason Start Date Expiration Date V isits Requested Visits Authorized [id number] Closed Auto-Generate d Referral 04/13/2024 05/13/2025 1 1 [facility] for visit Narrative* Diagnostic Procedure Only (Urgent) - Closed Specialty Diagnoses / Procedures Referred By Contac t Referred To Contact US IMAGING Diagnoses Acute renal insufficiency Other microscopic hematuria Procedures US KIDNEY/BLADDER US RETROPERITONEAL REAL TIME W/IMAGE COMPLETE Nel Day M, 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.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 [address] [place] [address] Phone: tel: fax: [place] [address] Referral ID Status Reason Start Date Expiration Date V isits Requested Visits Authorized [id number] Closed Auto-Generate d Referral 09/23/2024 10/23/2025 1 1 [facility] for visit Narrative* Diagnostic Procedure Only [...] MID-THIGH Serena Carrasco, DO [address] [place] [address] Phone: tel: fax: Molecular Imaging [address] [place], [place] [id number] Phone: tel: Referral ID Status Reason Start Date Expiration Date V isits Requested Visits Authorized [id number] Closed Auto-Generate d Referral 07/09/2024 08/08/2025 1 1 [facility] Instructions Name Dates Details Non-smoker : [...] ctions Indication:Fatty liver Breast cancer screening : Pa tient Instructions Indication:Breast cancer screening Elevated liver enzymes [...] FoundDocuments on File Type Date Recorded Patient Scrapper Expl anation Advance Directive(s) 09/24/2017 4:22 PM Date Activated Date Inactivated Comments 03/31/2019 1:31 PM 08/14/2022 8:33 AM Latest Code Status on File Code Status Date Activated Date Inactivated Comments Full Code 03/31/2019 1:31 PM Documents on File Type Date Recorded Patient Scrapper Expl anation Advance Directive(s) 03/20/2019 6:42 AM Advance Directive(s) 03/09/2019 12:12 PM Advance Directive(s) 08/29/2018 9:49 AM Advance Directive(s) 08/08/2018 9:48 AM Advance Directive(s) 09/24/2017 4:06 PM Advance Directive(s) 09/24/2017 4:23 PM Advance Directive(s) 09/24/2017 4:22 PM Advance Directive Response Recorded Date/ Time Advance Directives Yes June 07 10:05am Living Will No April 23 10:55am Power of Banking Supervisor No April 23, 2017 10:55am Documents on File Type Date Recorded Patient Scrapper Expl anation Advance Directive(s) 09/24/2017 4:22 PM [...] No July 08, 2023 6:21pm Power of Banking Supervisor No July 07 6:21pm Date Activated Date Inactivated Comments 03/31/2019 1:31 PM 08/14/2022 8:33 AM Advance Directive Response Recorded Date/ Time Advance Directives Yes June 07 10:05am Advance Directive Response Recorded Date/ Time Do you have a Healthcare Power of Banking Supervisor? No November 15, 2024 5:38pm Advance Directives Yes June 07 10:05am Advance Directive Response Recorded Date/ Time Do you have a Healthcare Power of Banking Supervisor? No November 15, 2024 11:20pm Advance Directives Yes June 07 10:05am Medications Administered Section Inactive Administered Medications - up to 3 most recent administrations Medication Order MAR Action Action Date Dose Rate Site zoledronic ts-waallagd-5.9NaCl 4 mg iv piggyback 100 mL (ZOMETA) 4 mg, INTRAVENOUS, Administer over 15 Minutes, ONCE, 1 dose, On Sat08/07/21 at 0930, Hazardous Potential Reproductive Risk Drug: Use appropriate PPE. New Bag/Syringe/Bottle 08/07/2021 9:12 AM EDT 4 mg Inactive Administered Medications - up to 3 most recent administrations Medication Order MAR Action Action Date Dose Rate Site zoledronic tn-avqkowzh-0.9NaCl 4 mg iv piggyback 100 mL (ZOMETA) 4 mg, INTRAVENOUS, Administer over 15 Minutes, ONCE, 1 dose, On Sat01/22/22 at 1130, Hazardous Potential Reproductive Risk Drug: Use appropriate PPE. New Bag/Syringe/Bottle 01/22/2022 11:40 AM EDT 4 mg Inactive Administered Medications - up to 3 most recent administrations Medication Order MAR Action Action Date Dose Rate Site zoledronic hj-jfpywsjg-6.9NaCl 4 mg iv piggyback 100 mL (ZOMETA) [...] mg, INTRAMUSCULAR, ONCE, 1 dose, On Xiomara 09/06/22 at 0900, Hazardous Chemotherapy Drug: Use appropriate PPE. Refrigerate. Given 09/06/2022 9:06 AM EDT 500 mg Buttocks, Left Inactive Administered Medications - up to 3 most recent administrations Medication Order MAR Action Action Date Dose Rate Site fulvestrant 500 mg injection (FASLODEX) 500 mg, INTRAMUSCULAR, ONCE, 1 dose, On Xiomara 09/20/22 at 1200, Hazardous Chemotherapy Drug: Use appropriate PPE. Refrigerate. Given 09/20/2022 12:31 PM EDT 500 mg Buttocks, Right Inactive Administered Medications - up to 3 most recent administrations Medication Order MAR Action Action Date Dose Rate Site NaCl 0.9% 1,000 mL INTRAVENOUS, at 500 mL/hr, Administer over 2 Hours, ONCE, 1 dose, On Xiomara 09/20/22 at 1130 New Bag/Syringe/Bottle 09/20/2022 11:30 AM [...] 500 mg, INTRAMUSCULAR, ONCE, 1 dose, On Sat11/15/22 at 0930, Hazardous Chemotherapy Drug: Use appropriate PPE. Refrigerate. Given 11/15/2022 9:29 AM EDT 500 mg Buttocks, Left Inactive Administered Medications - up to 3 most recent administrations Medication Order MAR Action Action Date Dose Rate Site fulvestrant 500 mg injection (FASLODEX) 500 mg, INTRAMUSCULAR, ONCE, 1 dose, On Sat12/13/22 at 0930, Hazardous Chemotherapy Drug: Use appropriate PPE. Refrigerate. Given 12/13/2022 9:42 AM EDT 500 mg Buttocks, Left Inactive Administered Medications - up to 3 most recent administrations Medication Order MAR Action Action Date Dose Rate Site fulvestrant 500 mg injection (FASLODEX) 500 mg, INTRAMUSCULAR, ONCE, 1 dose, On Sat03/05/23 at 0930, Hazardous Chemotherapy Drug: Use appropriate [...] HTN (hypertension) November 02, 2024 11:0 7am Chief Complaint Admit Date 4 M FU November 02, 2024 11:0 7am UTI, LAXMI November 15, 2024 10 :14pm Reason for Visit Admit Date 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, 2024 11:07am HTN (hypertension) November 02, 2024 11:0 7am Hyperlipemia, mixed November 02, 2024 11:0 7am Acute kidney injury November 15, 2024 10 :14pm Breast cancer November 15, 2024 10 :14pm Hypokalemia November 15, 2024 10 :14pm Urinary tract infection November 15 10:14pm Chief Complaint Admit Date 4 M FU November 02, 2024 11:0 7am UTI, LAXMI November 15, 2024 10 :14pm UTI, LAXMI November 16, 2024 9: 29am UTI, LAXMI November 17, 2024 8: 59am Reason for Visit Admit Date 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, 2024 11:07am HTN (hypertension) November 02, 2024 11:0 7am Hyperlipemia, mixed November 02, 2024 11:0 7am Acute kidney injury November 15, 2024 10 :14pm Breast cancer November 15, 2024 10 :14pm Breast cancer metastasized to axillary l ymph node November 15, 2024 10:14pm History of chemotherapy November 15 10:14pm Hypocalcemia November 15, 2024 10 :14pm Hypokalemia November 15, 2024 10 :14pm Iron deficiency anemia November 15, 2024 10:14pm Type 2 diabetes mellitus with hyperglyce lindsey November 15, 2024 10:14pm Urinary tract infection November 15 10:14pm HTN (hypertension) November 15, 2024 10 :14pm Chief Complaint Admit Date 4 M FU November 02, 2024 11:0 7am UTI, LAXMI November 15, 2024 10 :14pm UTI, LAXMI November 16, 2024 9: 29am UTI, LAXMI November 17, 2024 8: 59am UTI, LAXMI November 18, 2024 2: 01pm FAMILY HX, HLD, HTN, INTERMEDIATE ASCVD RISK December 10, 2024 2:50pm CT CALCIUM SCORING December 10, 2024 2:53pm LOCALIZED EDEMA December 15, 2024 12:50pm Reason for Referral Specialty Diagnoses / Procedures Referred By Contac t Referred To Contact [facility] Diagnoses It band syndrome, right Status post total replacement of right hip Procedures CONSULT TO PHYSICAL THERAPY PHYSICAL THERAPY EVALUATION HIGH COMPLEX 45 MINS Adebayo Avila PA-C [address] [place] [address] [facility] [address] [place] [address] Referral ID Status Reason Start Date Expiration Date Visits Requested Visits Authorized [id number] Pending Review Auto-Generat ed Referral 2 03/26/2023 [...] Serena Carrasco DO [address] [place] [address] Mr Imaging Referral ID Status Reason Start Date Expiration Date V isits Requested Visits Authorized [id number] Closed Auto-Generate d Referral 07/26/2022 08/25/2023 1 1 [facility] Diagnoses / [facility] Diagnoses Malignant neoplasm of lower-outer quadrant of left breast of female, estrogen receptor positive (HCC) Procedures MRI BREAST WO/W IVCON BILATERAL MRI BREAST WITHOUT&WITH CONTRAST W/[place] [address] [place] [address] Mr Imaging Referral ID Status Reason Start Date Expiration Date Visits Requested Visits Authorized [id number] Authorized Auto-Generat ed Referral 08/01/2022 08/31/2023 1 1 Specialty Diagnoses / Procedures Referred By Contac t Referred To Contact BR IMAGING Diagnoses Malignant neoplasm of lower-outer quadrant of left breast of female, estrogen receptor positive (HCC) Procedures US BREAST LTD LEFT US BREAST UNI REAL [place] [address] [place] [address] [facility] Imaging [address] [place] [address] Referral ID Status Reason Start Date Expiration Date V isits Requested Visits Authorized [id number] Closed Auto-Generate d Referral 08/01/2022 04/07/2023 1 1 Referral ID Status Reason Start Date Expiration Date V isits Requested Visits Authorized [id number] Closed Auto-Generate d Referral 08/01/2022 08/31/2023 1 1 Specialty Diagnoses / Procedures Referred By Contac t Referred To Contact Orthopedics Diagnoses Cervicalgia Procedures CONSULT TO ORTHOPAEDICS OFFICE/OUTPATIENT NEW HIGH MDM 60-74 MINUTES 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, 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.[facility] [address] [place] [address] Referral ID Status Reason Start Date Expiration Date Visits Requested Visits Authorized [id number] Authorized PCP Requested Referral 02/12/2023 02/12/2024 1 1 Specialty Diagnoses / Procedures Referred By Contac t Referred To Contact MR IMAGING Diagnoses Malignant neoplasm of lower-outer quadrant of left breast of female, estrogen receptor positive (HCC) Procedures MRI BREAST WO/W IVCON BILATERAL MRI BREAST WITHOUT&WITH CONTRAST W/[place] [address] [place] [address] [place] [address] Referral ID Status Reason Start Date Expiration Date Visits Requested Visits Authorized [id number] New Request Auto-Generat ed Referral 01/06/2024 02/04/2025 1 1 Specialty Diagnoses / Procedures Referred By Contac t Referred To Contact Diagnoses Poorly control type 2 diabetes mellitus (HCC) Procedures ENDOCRINOLOGY DIETITIAN VISIT (MNT) MEDICAL NUTRITION ASSMT&IVNTJ INDIV EACH 15 W[place] MEDICAL NUTRITION ASSMT&IVNTJ INDIV EACH 15 [place] MEDICAL NUTRITION ASSMT&IVNTJ INDIV EACH 15 [place] MEDICAL NUTRITION ASSMT&IVNTJ INDIV EACH 15 [place] Daisy Tituslakeshia Matson, 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.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 [address] [place] [address] Referral ID Status Reason Start Date Expiration Date Visits Requested Visits Authorized [id number] Authorized PCP Requested Referral 02/04/2025 1 1 Specialty Diagnoses / Procedures Referred By Contac t Referred To Contact [facility] Diagnoses Malignant neoplasm of lower-outer quadrant of left breast of female, estrogen receptor positive (HCC) Lymphedema of left arm Procedures CONSULT TO LYMPHEDEMA THERAPY OFFICE/OUTPATIENT [facility] 60 MINUTES Serena Carrasco, [address] [place] [address] [facility] [address] [place] [address] Referral ID Status Reason Start Date Expiration Date Visits Requested Visits Authorized [id number] Authorized Auto-Generat ed Referral 04/13/2024 04/13/2025 99 99 Additional Source Comments INFORMATION SOURCE (unrecogn ized section and content) DATE CREATED AUTHOR 08/22/2019 [facility] ([place]) DATE CREATED AUTHOR AUTHOR'S ORGANIZ ATION 08/18/2022 [facility] DATE CREATED AUTHOR AUTHOR'S ORGANIZ ATION 07/17/2024 [facility] DATE CREATED AUTHOR AUTHOR'S ORGANIZ ATION 09/26/2024 [facility] DATE CREATED AUTHOR AUTHOR'S ORGANIZ ATION 11/23/2024 [facility] DATE CREATED AUTHOR AUTHOR'S ORGANIZ ATION 12/30/2024 [facility] DATE CREATED AUTHOR AUTHOR'S ORGANIZ ATION 01/27/2025 [facility] DATE CREATED AUTHOR AUTHOR'S ORGANIZ ATION 01/27/2025 [facility] Source Comments (unrecognize d section and content) In the event this informatio n is protected by the Federal Confidentiality of Alcohol and Drug Abuse Patient Records regulations: The Federal rules restrict any use of the information to criminally investigate or prosecute any alcohol or drug abuse patient.[facility] the event this information is protected by the Federal Confidentiality of Alcohol and Drug Abuse Patient Records regulations: The Federal rules restrict any use of the information to criminally investigate or prosecute any alcohol or drug abuse patient.[facility] the event this information is protected by the Federal Confidentiality of Alcohol and Drug Abuse Patient Records regulations: The Federal rules restrict any use of the information to criminally investigate or prosecute any alcohol or drug abuse patient.[facility] the event this information is protected by the Federal Confidentiality of Alcohol and Drug Abuse Patient Records regulations: The Federal rules restrict any use of the information to criminally investigate or prosecute any alcohol or drug abuse patient.[facility] the event this information is protected by the Federal Confidentiality of Alcohol and Drug Abuse Patient Records regulations: The Federal rules restrict any use of the information to criminally investigate or prosecute any alcohol or drug abuse patient.[facility] HospitalIn the event this information is protected by the Federal Confidentiality of Alcohol and Drug Abuse Patient Records regulations: The Federal rules restrict any use of the information to criminally investigate or prosecute any alcohol or drug abuse patient.[facility] Hospital[facility] the event this information is protected by the Federal Confidentiality of Alcohol and Drug Abuse Patient Records regulations: The Federal rules restrict any use of the information to criminally investigate or prosecute any alcohol or drug abuse patient.[facility] HospitalIn the event this information is protected by the Federal Confidentiality of Alcohol and Drug Abuse Patient Records regulations: The Federal rules restrict any use of the information to criminally investigate or prosecute any alcohol or drug abuse patient.[facility] Hospital[facility] the event this information is protected by the Federal Confidentiality of Alcohol and Drug Abuse Patient Records regulations: The Federal rules restrict any use of the information to criminally investigate or prosecute any alcohol or drug abuse patient.[facility] Hospital[facility] the event this information is protected by the Federal Confidentiality of Alcohol and Drug Abuse Patient Records regulations: The Federal rules restrict any use of the information to criminally investigate or prosecute any alcohol or drug abuse patient.[facility] HospitalIn the event this information is protected by the Federal Confidentiality of Alcohol and Drug Abuse Patient Records regulations: The Federal rules restrict any use of the information to criminally investigate or prosecute any alcohol or drug abuse patient.[facility] HospitalIn the event this information is protected by the Federal Confidentiality of Alcohol and Drug Abuse Patient Records regulations: The Federal rules restrict any use of the information to criminally investigate or prosecute any alcohol or drug abuse patient.[facility] HospitalIn the event this information is protected by the Federal Confidentiality of Alcohol and Drug Abuse Patient Records regulations: The Federal rules restrict any use of the information to criminally investigate or prosecute any alcohol or drug abuse patient.[facility] HospitalIn the event this information is protected by the Federal Confidentiality of Alcohol and Drug Abuse Patient Records regulations: The Federal rules restrict any use of the information to criminally investigate or prosecute any alcohol or drug abuse patient.[facility] HospitalIn the event this information is protected by the Federal Confidentiality of Alcohol and Drug Abuse Patient Records regulations: The Federal rules restrict any use of the information to criminally investigate or prosecute any alcohol or drug abuse patient.[facility] HospitalIn the event this information is protected by the Federal Confidentiality of Alcohol and Drug Abuse Patient Records regulations: The Federal rules restrict any use of the information to criminally investigate or prosecute any alcohol or drug abuse patient.[facility] HospitalIn the event this information is protected by the Federal Confidentiality of Alcohol and Drug Abuse Patient Records regulations: The Federal rules restrict any use of the information to criminally investigate or prosecute any alcohol or drug abuse patient.[facility] HospitalIn the event this information is protected by the Federal Confidentiality of Alcohol and Drug Abuse Patient Records regulations: The Federal rules restrict any use of the information to criminally investigate or prosecute any alcohol or drug abuse patient.[facility] HospitalIn the event this information is protected by the Federal Confidentiality of Alcohol and Drug Abuse Patient Records regulations: The Federal rules restrict any use of the information to criminally investigate or prosecute any alcohol or drug abuse patient.[facility] HospitalIn the event this information is protected by the Federal Confidentiality of Alcohol and Drug Abuse Patient Records regulations: The Federal rules restrict any use of the information to criminally investigate or prosecute any alcohol or drug abuse patient.[facility] HospitalIn the event this information is protected by the Federal Confidentiality of Alcohol and Drug Abuse Patient Records regulations: The Federal rules restrict any use of the information to criminally investigate or prosecute any alcohol or drug abuse patient.[facility] HospitalIn the event this information is protected by the Federal Confidentiality of Alcohol and Drug Abuse Patient Records regulations: The Federal rules restrict any use of the information to criminally investigate or prosecute any alcohol or drug abuse patient.[facility] HospitalIn the event this information is protected by the Federal Confidentiality of Alcohol and Drug Abuse Patient Records regulations: The Federal rules restrict any use of the information to criminally investigate or prosecute any alcohol or drug abuse patient.[facility] HospitalIn the event this information is protected by the Federal Confidentiality of Alcohol and Drug Abuse Patient Records regulations: The Federal rules restrict any use of the information to criminally investigate or prosecute any alcohol or drug abuse patient.[facility] HospitalIn the event this information is protected by the Federal Confidentiality of Alcohol and Drug Abuse Patient Records regulations: The Federal rules restrict any use of the information to criminally investigate or prosecute any alcohol or drug abuse patient.[facility] HospitalIn the event this information is protected by the Federal Confidentiality of Alcohol and Drug Abuse Patient Records regulations: The Federal rules restrict any use of the information to criminally investigate or prosecute any alcohol or drug abuse patient.[facility] HospitalIn the event this information is protected by the Federal Confidentiality of Alcohol and Drug Abuse Patient Records regulations: The Federal rules restrict any use of the information to criminally investigate or prosecute any alcohol or drug abuse patient.[facility] HospitalIn the event this information is protected by the Federal Confidentiality of Alcohol and Drug Abuse Patient Records regulations: The Federal rules restrict any use of the information to criminally investigate or prosecute any alcohol or drug abuse patient.[facility] HospitalIn the event this information is protected by the Federal Confidentiality of Alcohol and Drug Abuse Patient Records regulations: The Federal rules restrict any use of the information to criminally investigate or prosecute any alcohol or drug abuse patient.[facility] HospitalIn the event this information is protected by the Federal Confidentiality of Alcohol and Drug Abuse Patient Records regulations: The Federal rules restrict any use of the information to criminally investigate or prosecute any alcohol or drug abuse patient.[facility] HospitalIn the event this information is protected by the Federal Confidentiality of Alcohol and Drug Abuse Patient Records regulations: The Federal rules restrict any use of the information to criminally investigate or prosecute any alcohol or drug abuse patient.[facility] HospitalIn the event this information is protected by the Federal Confidentiality of Alcohol and Drug Abuse Patient Records regulations: The Federal rules restrict any use of the information to criminally investigate or prosecute any alcohol or drug abuse patient.[facility] HospitalIn the event this information is protected by the Federal Confidentiality of Alcohol and Drug Abuse Patient Records regulations: The Federal rules restrict any use of the information to criminally investigate or prosecute any alcohol or drug abuse patient.[facility] HospitalIn the event this information is protected by the Federal Confidentiality of Alcohol and Drug Abuse Patient Records regulations: The Federal rules restrict any use of the information to criminally investigate or prosecute any alcohol or drug abuse patient.[facility] HospitalIn the event this information is protected by the Federal Confidentiality of Alcohol and Drug Abuse Patient Records regulations: The Federal rules restrict any use of the information to criminally investigate or prosecute any alcohol or drug abuse patient.[facility] HospitalIn the event this information is protected by the Federal Confidentiality of Alcohol and Drug Abuse Patient Records regulations: The Federal rules restrict any use of the information to criminally investigate or prosecute any alcohol or drug abuse patient.[facility] the event this information is protected by the Federal Confidentiality of Alcohol and Drug Abuse Patient Records regulations: The Federal rules restrict any use of the information to criminally investigate or prosecute any alcohol or drug abuse patient.[facility] HospitalIn the event this information is protected by the Federal Confidentiality of Alcohol and Drug Abuse Patient Records regulations: The Federal rules restrict any use of the information to criminally investigate or prosecute any alcohol or drug abuse patient.[facility] HospitalIn the event this information is protected by the Federal Confidentiality of Alcohol and Drug Abuse Patient Records regulations: The Federal rules restrict any use of the information to criminally investigate or prosecute any alcohol or drug abuse patient.[facility] the event this information is protected by the Federal Confidentiality of Alcohol and Drug Abuse Patient Records regulations: The Federal rules restrict any use of the information to criminally investigate or prosecute any alcohol or drug abuse patient.[facility] HospitalIn the event this information is protected by the Federal Confidentiality of Alcohol and Drug Abuse Patient Records regulations: The Federal rules restrict any use of the information to criminally investigate or prosecute any alcohol or drug abuse patient.[facility] HospitalIn the event this information is protected by the Federal Confidentiality of Alcohol and Drug Abuse Patient Records regulations: The Federal rules restrict any use of the information to criminally investigate or prosecute any alcohol or drug abuse patient.[facility] HospitalIn the event this information is protected by the Federal Confidentiality of Alcohol and Drug Abuse Patient Records regulations: The Federal rules restrict any use of the information to criminally investigate or prosecute any alcohol or drug abuse patient.[facility] HospitalIn the event this information is protected by the Federal Confidentiality of Alcohol and Drug Abuse Patient Records regulations: The Federal rules restrict any use of the information to criminally investigate or prosecute any alcohol or drug abuse patient.[facility] HospitalIn the event this information is protected by the Federal Confidentiality of Alcohol and Drug Abuse Patient Records regulations: The Federal rules restrict any use of the information to criminally investigate or prosecute any alcohol or drug abuse patient.[facility] HospitalIn the event this information is protected by the Federal Confidentiality of Alcohol and Drug Abuse Patient Records regulations: The Federal rules restrict any use of the information to criminally investigate or prosecute any alcohol or drug abuse patient.[facility] HospitalIn the event this information is protected by the Federal Confidentiality of Alcohol and Drug Abuse Patient Records regulations: The Federal rules restrict any use of the information to criminally investigate or prosecute any alcohol or drug abuse patient.[facility] HospitalIn the event this information is protected by the Federal Confidentiality of Alcohol and Drug Abuse Patient Records regulations: The Federal rules restrict any use of the information to criminally investigate or prosecute any alcohol or drug abuse patient.[facility] HospitalIn the event this information is protected by the Federal Confidentiality of Alcohol and Drug Abuse Patient Records regulations: The Federal rules restrict any use of the information to criminally investigate or prosecute any alcohol or drug abuse patient.[facility] HospitalIn the event this information is protected by the Federal Confidentiality of Alcohol and Drug Abuse Patient Records regulations: The Federal rules restrict any use of the information to criminally investigate or prosecute any alcohol or drug abuse patient.[facility] HospitalIn the event this information is protected by the Federal Confidentiality of Alcohol and Drug Abuse Patient Records regulations: The Federal rules restrict any use of the information to criminally investigate or prosecute any alcohol or drug abuse patient.[facility] HospitalIn the event this information is protected by the Federal Confidentiality of Alcohol and Drug Abuse Patient Records regulations: The Federal rules restrict any use of the information to criminally investigate or prosecute any alcohol or drug abuse patient.[facility] HospitalIn the event this information is protected by the Federal Confidentiality of Alcohol and Drug Abuse Patient Records regulations: The Federal rules restrict any use of the information to criminally investigate or prosecute any alcohol or drug abuse patient.[facility] HospitalIn the event this information is protected by the Federal Confidentiality of Alcohol and Drug Abuse Patient Records regulations: The Federal rules restrict any use of the information to criminally investigate or prosecute any alcohol or drug abuse patient.[facility] HospitalIn the event this information is protected by the Federal Confidentiality of Alcohol and Drug Abuse Patient Records regulations: The Federal rules restrict any use of the information to criminally investigate or prosecute any alcohol or drug abuse patient.[facility] HospitalIn the event this information is protected by the Federal Confidentiality of Alcohol and Drug Abuse Patient Records regulations: The Federal rules restrict any use of the information to criminally investigate or prosecute any alcohol or drug abuse patient.[facility] HospitalIn the event this information is protected by the Federal Confidentiality of Alcohol and Drug Abuse Patient Records regulations: The Federal rules restrict any use of the information to criminally investigate or prosecute any alcohol or drug abuse patient.[facility] HospitalIn the event this information is protected by the Federal Confidentiality of Alcohol and Drug Abuse Patient Records regulations: The Federal rules restrict any use of the information to criminally investigate or prosecute any alcohol or drug abuse patient.[facility] HospitalIn the event this information is protected by the Federal Confidentiality of Alcohol and Drug Abuse Patient Records regulations: The Federal rules restrict any use of the information to criminally investigate or prosecute any alcohol or drug abuse patient.[facility] HospitalIn the event this information is protected by the Federal Confidentiality of Alcohol and Drug Abuse Patient Records regulations: The Federal rules restrict any use of the information to criminally investigate or prosecute any alcohol or drug abuse patient.[facility] HospitalIn the event this information is protected by the Federal Confidentiality of Alcohol and Drug Abuse Patient Records regulations: The Federal rules restrict any use of the information to criminally investigate or prosecute any alcohol or drug abuse patient.[facility] HospitalIn the event this information is protected by the Federal Confidentiality of Alcohol and Drug Abuse Patient Records regulations: The Federal rules restrict any use of the information to criminally investigate or prosecute any alcohol or drug abuse patient.[facility] HospitalIn the event this information is protected by the Federal Confidentiality of Alcohol and Drug Abuse Patient Records regulations: The Federal rules restrict any use of the information to criminally investigate or prosecute any alcohol or drug abuse patient.[facility] HospitalIn the event this information is protected by the Federal Confidentiality of Alcohol and Drug Abuse Patient Records regulations: The Federal rules restrict any use of the information to criminally investigate or prosecute any alcohol or drug abuse patient.[facility] HospitalIn the event this information is protected by the Federal Confidentiality of Alcohol and Drug Abuse Patient Records regulations: The Federal rules restrict any use of the information to criminally investigate or prosecute any alcohol or drug abuse patient.[facility] HospitalIn the event this information is protected by the Federal Confidentiality of Alcohol and Drug Abuse Patient Records regulations: The Federal rules restrict any use of the information to criminally investigate or prosecute any alcohol or drug abuse patient.[facility] HospitalIn the event this information is protected by the Federal Confidentiality of Alcohol and Drug Abuse Patient Records regulations: The Federal rules restrict any use of the information to criminally investigate or prosecute any alcohol or drug abuse patient.[facility] HospitalIn the event this information is protected by the Federal Confidentiality of Alcohol and Drug Abuse Patient Records regulations: The Federal rules restrict any use of the information to criminally investigate or prosecute any alcohol or drug abuse patient.[facility] HospitalIn the event this information is protected by the Federal Confidentiality of Alcohol and Drug Abuse Patient Records regulations: The Federal rules restrict any use of the information to criminally investigate or prosecute any alcohol or drug abuse patient.[facility] HospitalIn the event this information is protected by the Federal Confidentiality of Alcohol and Drug Abuse Patient Records regulations: The Federal rules restrict any use of the information to criminally investigate or prosecute any alcohol or drug abuse patient.[facility] HospitalIn the event this information is protected by the Federal Confidentiality of Alcohol and Drug Abuse Patient Records regulations: The Federal rules restrict any use of the information to criminally investigate or prosecute any alcohol or drug abuse patient.[facility] HospitalIn the event this information is protected by the Federal Confidentiality of Alcohol and Drug Abuse Patient Records regulations: The Federal rules restrict any use of the information to criminally investigate or prosecute any alcohol or drug abuse patient.[facility] HospitalIn the event this information is protected by the Federal Confidentiality of Alcohol and Drug Abuse Patient Records regulations: The Federal rules restrict any use of the information to criminally investigate or prosecute any alcohol or drug abuse patient.[facility] HospitalIn the event this information is protected by the Federal Confidentiality of Alcohol and Drug Abuse Patient Records regulations: The Federal rules restrict any use of the information to criminally investigate or prosecute any alcohol or drug abuse patient.[facility] HospitalIn the event this information is protected by the Federal Confidentiality of Alcohol and Drug Abuse Patient Records regulations: The Federal rules restrict any use of the information to criminally investigate or prosecute any alcohol or drug abuse patient.[facility] HospitalIn the event this information is protected by the Federal Confidentiality of Alcohol and Drug Abuse Patient Records regulations: The Federal rules restrict any use of the information to criminally investigate or prosecute any alcohol or drug abuse patient.[facility] HospitalIn the event this information is protected by the Federal Confidentiality of Alcohol and Drug Abuse Patient Records regulations: The Federal rules restrict any use of the information to criminally investigate or prosecute any alcohol or drug abuse patient.[facility] HospitalIn the event this information is protected by the Federal Confidentiality of Alcohol and Drug Abuse Patient Records regulations: The Federal rules restrict any use of the information to criminally investigate or prosecute any alcohol or drug abuse patient.[facility] HospitalIn the event this information is protected by the Federal Confidentiality of Alcohol and Drug Abuse Patient Records regulations: The Federal rules restrict any use of the information to criminally investigate or prosecute any alcohol or drug abuse patient.[facility] HospitalIn the event this information is protected by the Federal Confidentiality of Alcohol and Drug Abuse Patient Records regulations: The Federal rules restrict any use of the information to criminally investigate or prosecute any alcohol or drug abuse patient.[facility] HospitalIn the event this information is protected by the Federal Confidentiality of Alcohol and Drug Abuse Patient Records regulations: The Federal rules restrict any use of the information to criminally investigate or prosecute any alcohol or drug abuse patient.[facility] HospitalIn the event this information is protected by the Federal Confidentiality of Alcohol and Drug Abuse Patient Records regulations: The Federal rules restrict any use of the information to criminally investigate or prosecute any alcohol or drug abuse patient.[facility] HospitalIn the event this information is protected by the Federal Confidentiality of Alcohol and Drug Abuse Patient Records regulations: The Federal rules restrict any use of the information to criminally investigate or prosecute any alcohol or drug abuse patient.[facility] HospitalIn the event this information is protected by the Federal Confidentiality of Alcohol and Drug Abuse Patient Records regulations: The Federal rules restrict any use of the information to criminally investigate or prosecute any alcohol or drug abuse patient.[facility] HospitalIn the event this information is protected by the Federal Confidentiality of Alcohol and Drug Abuse Patient Records regulations: The Federal rules restrict any use of the information to criminally investigate or prosecute any alcohol or drug abuse patient.[facility] HospitalIn the event this information is protected by the Federal Confidentiality of Alcohol and Drug Abuse Patient Records regulations: The Federal rules restrict any use of the information to criminally investigate or prosecute any alcohol or drug abuse patient.[facility] the event this information is protected by the Federal Confidentiality of Alcohol and Drug Abuse Patient Records regulations: The Federal rules restrict any use of the information to criminally investigate or prosecute any alcohol or drug abuse patient.[facility] HospitalIn the event this information is protected by the Federal Confidentiality of Alcohol and Drug Abuse Patient Records regulations: The Federal rules restrict any use of the information to criminally investigate or prosecute any alcohol or drug abuse patient.[facility] HospitalIn the event this information is protected by the Federal Confidentiality of Alcohol and Drug Abuse Patient Records regulations: The Federal rules restrict any use of the information to criminally investigate or prosecute any alcohol or drug abuse patient.[facility]In the event this information is protected by the Federal Confidentiality of Alcohol and Drug Abuse Patient Records regulations: The Federal rules restrict any use of the information to criminally investigate or prosecute any alcohol or drug abuse patient.[facility]In the event this information is protected by the Federal Confidentiality of Alcohol and Drug Abuse Patient Records regulations: The Federal rules restrict any use of the information to criminally investigate or prosecute any alcohol or drug abuse patient.[facility] HospitalIn the event this information is protected by the Federal Confidentiality of Alcohol and Drug Abuse Patient Records regulations: The Federal rules restrict any use of the information to criminally investigate or prosecute any alcohol or drug abuse patient.[facility] HospitalIn the event this information is protected by the Federal Confidentiality of Alcohol and Drug Abuse Patient Records regulations: The Federal rules restrict any use of the information to criminally investigate or prosecute any alcohol or drug abuse patient.[facility] HospitalIn the event this information is protected by the Federal Confidentiality of Alcohol and Drug Abuse Patient Records regulations: The Federal rules restrict any use of the information to criminally investigate or prosecute any alcohol or drug abuse patient.[facility]In the event this information is protected by the Federal Confidentiality of Alcohol and Drug Abuse Patient Records regulations: The Federal rules restrict any use of the information to criminally investigate or prosecute any alcohol or drug abuse patient.[facility] HospitalIn the event this information is protected by the Federal Confidentiality of Alcohol and Drug Abuse Patient Records regulations: The Federal rules restrict any use of the information to criminally investigate or prosecute any alcohol or drug abuse patient.[facility] HospitalIn the event this information is protected by the Federal Confidentiality of Alcohol and Drug Abuse Patient Records regulations: The Federal rules restrict any use of the information to criminally investigate or prosecute any alcohol or drug abuse patient.[facility] HospitalIn the event this information is protected by the Federal Confidentiality of Alcohol and Drug Abuse Patient Records regulations: The Federal rules restrict any use of the information to criminally investigate or prosecute any alcohol or drug abuse patient.[facility] HospitalIn the event this information is protected by the Federal Confidentiality of Alcohol and Drug Abuse Patient Records regulations: The Federal rules restrict any use of the information to criminally investigate or prosecute any alcohol or drug abuse patient.[facility] HospitalIn the event this information is protected by the Federal Confidentiality of Alcohol and Drug Abuse Patient Records regulations: The Federal rules restrict any use of the information to criminally investigate or prosecute any alcohol or drug abuse patient.[facility] HospitalIn the event this information is protected by the Federal Confidentiality of Alcohol and Drug Abuse Patient Records regulations: The Federal rules restrict any use of the information to criminally investigate or prosecute any alcohol or drug abuse patient.[facility] HospitalIn the event this information is protected by the Federal Confidentiality of Alcohol and Drug Abuse Patient Records regulations: The Federal rules restrict any use of the information to criminally investigate or prosecute any alcohol or drug abuse patient.[facility] HospitalIn the event this information is protected by the Federal Confidentiality of Alcohol and Drug Abuse Patient Records regulations: The Federal rules restrict any use of the information to criminally investigate or prosecute any alcohol or drug abuse patient.[facility] HospitalIn the event this information is protected by the Federal Confidentiality of Alcohol and Drug Abuse Patient Records regulations: The Federal rules restrict any use of the information to criminally investigate or prosecute any alcohol or drug abuse patient.[facility] HospitalIn the event this information is protected by the Federal Confidentiality of Alcohol and Drug Abuse Patient Records regulations: The Federal rules restrict any use of the information to criminally investigate or prosecute any alcohol or drug abuse patient.[facility] HospitalIn the event this information is protected by the Federal Confidentiality of Alcohol and Drug Abuse Patient Records regulations: The Federal rules restrict any use of the information to criminally investigate or prosecute any alcohol or drug abuse patient.[facility] HospitalIn the event this information is protected by the Federal Confidentiality of Alcohol and Drug Abuse Patient Records regulations: The Federal rules restrict any use of the information to criminally investigate or prosecute any alcohol or drug abuse patient.[facility] HospitalIn the event this information is protected by the Federal Confidentiality of Alcohol and Drug Abuse Patient Records regulations: The Federal rules restrict any use of the information to criminally investigate or prosecute any alcohol or drug abuse patient.[facility] HospitalIn the event this information is protected by the Federal Confidentiality of Alcohol and Drug Abuse Patient Records regulations: The Federal rules restrict any use of the information to criminally investigate or prosecute any alcohol or drug abuse patient.[facility] HospitalIn the event this information is protected by the Federal Confidentiality of Alcohol and Drug Abuse Patient Records regulations: The Federal rules restrict any use of the information to criminally investigate or prosecute any alcohol or drug abuse patient.[facility] HospitalIn the event this information is protected by the Federal Confidentiality of Alcohol and Drug Abuse Patient Records regulations: The Federal rules restrict any use of the information to criminally investigate or prosecute any alcohol or drug abuse patient.[facility] HospitalIn the event this information is protected by the Federal Confidentiality of Alcohol and Drug Abuse Patient Records regulations: The Federal rules restrict any use of the information to criminally investigate or prosecute any alcohol or drug abuse patient.[facility] HospitalIn the event this information is protected by the Federal Confidentiality of Alcohol and Drug Abuse Patient Records regulations: The Federal rules restrict any use of the information to criminally investigate or prosecute any alcohol or drug abuse patient.[facility] HospitalIn the event this information is protected by the Federal Confidentiality of Alcohol and Drug Abuse Patient Records regulations: The Federal rules restrict any use of the information to criminally investigate or prosecute any alcohol or drug abuse patient.[facility] HospitalIn the event this information is protected by the Federal Confidentiality of Alcohol and Drug Abuse Patient Records regulations: The Federal rules restrict any use of the information to criminally investigate or prosecute any alcohol or drug abuse patient.[facility] HospitalIn the event this information is protected by the Federal Confidentiality of Alcohol and Drug Abuse Patient Records regulations: The Federal rules restrict any use of the information to criminally investigate or prosecute any alcohol or drug abuse patient.[facility] HospitalIn the event this information is protected by the Federal Confidentiality of Alcohol and Drug Abuse Patient Records regulations: The Federal rules restrict any use of the information to criminally investigate or prosecute any alcohol or drug abuse patient.[facility] HospitalIn the event this information is protected by the Federal Confidentiality of Alcohol and Drug Abuse Patient Records regulations: The Federal rules restrict any use of the information to criminally investigate or prosecute any alcohol or drug abuse patient.[facility] HospitalIn the event this information is protected by the Federal Confidentiality of Alcohol and Drug Abuse Patient Records regulations: The Federal rules restrict any use of the information to criminally investigate or prosecute any alcohol or drug abuse patient.[facility] HospitalIn the event this information is protected by the Federal Confidentiality of Alcohol and Drug Abuse Patient Records regulations: The Federal rules restrict any use of the information to criminally investigate or prosecute any alcohol or drug abuse patient.[facility] HospitalIn the event this information is protected by the Federal Confidentiality of Alcohol and Drug Abuse Patient Records regulations: The Federal rules restrict any use of the information to criminally investigate or prosecute any alcohol or drug abuse patient.[facility] HospitalIn the event this information is protected by the Federal Confidentiality of Alcohol and Drug Abuse Patient Records regulations: The Federal rules restrict any use of the information to criminally investigate or prosecute any alcohol or drug abuse patient.[facility] HospitalIn the event this information is protected by the Federal Confidentiality of Alcohol and Drug Abuse Patient Records regulations: The Federal rules restrict any use of the information to criminally investigate or prosecute any alcohol or drug abuse patient.[facility] HospitalIn the event this information is protected by the Federal Confidentiality of Alcohol and Drug Abuse Patient Records regulations: The Federal rules restrict any use of the information to criminally investigate or prosecute any alcohol or drug abuse patient.[facility] HospitalIn the event this information is protected by the Federal Confidentiality of Alcohol and Drug Abuse Patient Records regulations: The Federal rules restrict any use of the information to criminally investigate or prosecute any alcohol or drug abuse patient.[facility] HospitalIn the event this information is protected by the Federal Confidentiality of Alcohol and Drug Abuse Patient Records regulations: The Federal rules restrict any use of the information to criminally investigate or prosecute any alcohol or drug abuse patient.[facility] HospitalIn the event this information is protected by the Federal Confidentiality of Alcohol and Drug Abuse Patient Records regulations: The Federal rules restrict any use of the information to criminally investigate or prosecute any alcohol or drug abuse patient.[facility] HospitalIn the event this information is protected by the Federal Confidentiality of Alcohol and Drug Abuse Patient Records regulations: The Federal rules restrict any use of the information to criminally investigate or prosecute any alcohol or drug abuse patient.[facility] HospitalIn the event this information is protected by the Federal Confidentiality of Alcohol and Drug Abuse Patient Records regulations: The Federal rules restrict any use of the information to criminally investigate or prosecute any alcohol or drug abuse patient.[facility] HospitalIn the event this information is protected by the Federal Confidentiality of Alcohol and Drug Abuse Patient Records regulations: The Federal rules restrict any use of the information to criminally investigate or prosecute any alcohol or drug abuse patient.[facility] HospitalIn the event this information is protected by the Federal Confidentiality of Alcohol and Drug Abuse Patient Records regulations: The Federal rules restrict any use of the information to criminally investigate or prosecute any alcohol or drug abuse patient.[facility] HospitalIn the event this information is protected by the Federal Confidentiality of Alcohol and Drug Abuse Patient Records regulations: The Federal rules restrict any use of the information to criminally investigate or prosecute any alcohol or drug abuse patient.[facility] HospitalIn the event this information is protected by the Federal Confidentiality of Alcohol and Drug Abuse Patient Records regulations: The Federal rules restrict any use of the information to criminally investigate or prosecute any alcohol or drug abuse patient.[facility] HospitalIn the event this information is protected by the Federal Confidentiality of Alcohol and Drug Abuse Patient Records regulations: The Federal rules restrict any use of the information to criminally investigate or prosecute any alcohol or drug abuse patient.[facility] HospitalIn the event this information is protected by the Federal Confidentiality of Alcohol and Drug Abuse Patient Records regulations: The Federal rules restrict any use of the information to criminally investigate or prosecute any alcohol or drug abuse patient.[facility] HospitalIn the event this information is protected by the Federal Confidentiality of Alcohol and Drug Abuse Patient Records regulations: The Federal rules restrict any use of the information to criminally investigate or prosecute any alcohol or drug abuse patient.[facility] the event this information is protected by the Federal Confidentiality of Alcohol and Drug Abuse Patient Records regulations: The Federal rules restrict any use of the information to criminally investigate or prosecute any alcohol or drug abuse patient.[facility] HospitalIn the event this information is protected by the Federal Confidentiality of Alcohol and Drug Abuse Patient Records regulations: The Federal rules restrict any use of the information to criminally investigate or prosecute any alcohol or drug abuse patient.[facility] HospitalIn the event this information is protected by the Federal Confidentiality of Alcohol and Drug Abuse Patient Records regulations: The Federal rules restrict any use of the information to criminally investigate or prosecute any alcohol or drug abuse patient.[facility]In the event this information is protected by the Federal Confidentiality of Alcohol and Drug Abuse Patient Records regulations: The Federal rules restrict any use of the information to criminally investigate or prosecute any alcohol or drug abuse patient.[facility] HospitalIn the event this information is protected by the Federal Confidentiality of Alcohol and Drug Abuse Patient Records regulations: The Federal rules restrict any use of the information to criminally investigate or prosecute any alcohol or drug abuse patient.[facility] HospitalIn the event this information is protected by the Federal Confidentiality of Alcohol and Drug Abuse Patient Records regulations: The Federal rules restrict any use of the information to criminally investigate or prosecute any alcohol or drug abuse patient.[facility] HospitalIn the event this information is protected by the Federal Confidentiality of Alcohol and Drug Abuse Patient Records regulations: The Federal rules restrict any use of the information to criminally investigate or prosecute any alcohol or drug abuse patient.[facility] HospitalIn the event this information is protected by the Federal Confidentiality of Alcohol and Drug Abuse Patient Records regulations: The Federal rules restrict any use of the information to criminally investigate or prosecute any alcohol or drug abuse patient.[facility] HospitalIn the event this information is protected by the Federal Confidentiality of Alcohol and Drug Abuse Patient Records regulations: The Federal rules restrict any use of the information to criminally investigate or prosecute any alcohol or drug abuse patient.[facility] HospitalIn the event this information is protected by the Federal Confidentiality of Alcohol and Drug Abuse Patient Records regulations: The Federal rules restrict any use of the information to criminally investigate or prosecute any alcohol or drug abuse patient.[facility] HospitalIn the event this information is protected by the Federal Confidentiality of Alcohol and Drug Abuse Patient Records regulations: The Federal rules restrict any use of the information to criminally investigate or prosecute any alcohol or drug abuse patient.[facility] HospitalIn the event this information is protected by the Federal Confidentiality of Alcohol and Drug Abuse Patient Records regulations: The Federal rules restrict any use of the information to criminally investigate or prosecute any alcohol or drug abuse patient.[facility] HospitalIn the event this information is protected by the Federal Confidentiality of Alcohol and Drug Abuse Patient Records regulations: The Federal rules restrict any use of the information to criminally investigate or prosecute any alcohol or drug abuse patient.[facility] HospitalIn the event this information is protected by the Federal Confidentiality of Alcohol and Drug Abuse Patient Records regulations: The Federal rules restrict any use of the information to criminally investigate or prosecute any alcohol or drug abuse patient.[facility] HospitalIn the event this information is protected by the Federal Confidentiality of Alcohol and Drug Abuse Patient Records regulations: The Federal rules restrict any use of the information to criminally investigate or prosecute any alcohol or drug abuse patient.[facility] HospitalIn the event this information is protected by the Federal Confidentiality of Alcohol and Drug Abuse Patient Records regulations: The Federal rules restrict any use of the information to criminally investigate or prosecute any alcohol or drug abuse patient.[facility] HospitalIn the event this information is protected by the Federal Confidentiality of Alcohol and Drug Abuse Patient Records regulations: The Federal rules restrict any use of the information to criminally investigate or prosecute any alcohol or drug abuse patient.[facility] HospitalIn the event this information is protected by the Federal Confidentiality of Alcohol and Drug Abuse Patient Records regulations: The Federal rules restrict any use of the information to criminally investigate or prosecute any alcohol or drug abuse patient.[facility] HospitalIn the event this information is protected by the Federal Confidentiality of Alcohol and Drug Abuse Patient Records regulations: The Federal rules restrict any use of the information to criminally investigate or prosecute any alcohol or drug abuse patient.[facility] HospitalIn the event this information is protected by the Federal Confidentiality of Alcohol and Drug Abuse Patient Records regulations: The Federal rules restrict any use of the information to criminally investigate or prosecute any alcohol or drug abuse patient.[facility] HospitalIn the event this information is protected by the Federal Confidentiality of Alcohol and Drug Abuse Patient Records regulations: The Federal rules restrict any use of the information to criminally investigate or prosecute any alcohol or drug abuse patient.[facility] HospitalIn the event this information is protected by the Federal Confidentiality of Alcohol and Drug Abuse Patient Records regulations: The Federal rules restrict any use of the information to criminally investigate or prosecute any alcohol or drug abuse patient.[facility] HospitalIn the event this information is protected by the Federal Confidentiality of Alcohol and Drug Abuse Patient Records regulations: The Federal rules restrict any use of the information to criminally investigate or prosecute any alcohol or drug abuse patient.[facility] HospitalIn the event this information is protected by the Federal Confidentiality of Alcohol and Drug Abuse Patient Records regulations: The Federal rules restrict any use of the information to criminally investigate or prosecute any alcohol or drug abuse patient.[facility] HospitalIn the event this information is protected by the Federal Confidentiality of Alcohol and Drug Abuse Patient Records regulations: The Federal rules restrict any use of the information to criminally investigate or prosecute any alcohol or drug abuse patient.[facility] HospitalIn the event this information is protected by the Federal Confidentiality of Alcohol and Drug Abuse Patient Records regulations: The Federal rules restrict any use of the information to criminally investigate or prosecute any alcohol or drug abuse patient.[facility] HospitalIn the event this information is protected by the Federal Confidentiality of Alcohol and Drug Abuse Patient Records regulations: The Federal rules restrict any use of the information to criminally investigate or prosecute any alcohol or drug abuse patient.[facility] HospitalIn the event this information is protected by the Federal Confidentiality of Alcohol and Drug Abuse Patient Records regulations: The Federal rules restrict any use of the information to criminally investigate or prosecute any alcohol or drug abuse patient.[facility] HospitalIn the event this information is protected by the Federal Confidentiality of Alcohol and Drug Abuse Patient Records regulations: The Federal rules restrict any use of the information to criminally investigate or prosecute any alcohol or drug abuse patient.[facility] HospitalIn the event this information is protected by the Federal Confidentiality of Alcohol and Drug Abuse Patient Records regulations: The Federal rules restrict any use of the information to criminally investigate or prosecute any alcohol or drug abuse patient.[facility] HospitalIn the event this information is protected by the Federal Confidentiality of Alcohol and Drug Abuse Patient Records regulations: The Federal rules restrict any use of the information to criminally investigate or prosecute any alcohol or drug abuse patient.[facility] HospitalIn the event this information is protected by the Federal Confidentiality of Alcohol and Drug Abuse Patient Records regulations: The Federal rules restrict any use of the information to criminally investigate or prosecute any alcohol or drug abuse patient.[facility] HospitalIn the event this information is protected by the Federal Confidentiality of Alcohol and Drug Abuse Patient Records regulations: The Federal rules restrict any use of the information to criminally investigate or prosecute any alcohol or drug abuse patient.[facility] HospitalIn the event this information is protected by the Federal Confidentiality of Alcohol and Drug Abuse Patient Records regulations: The Federal rules restrict any use of the information to criminally investigate or prosecute any alcohol or drug abuse patient.[facility] HospitalIn the event this information is protected by the Federal Confidentiality of Alcohol and Drug Abuse Patient Records regulations: The Federal rules restrict any use of the information to criminally investigate or prosecute any alcohol or drug abuse patient.[facility] HospitalIn the event this information is protected by the Federal Confidentiality of Alcohol and Drug Abuse Patient Records regulations: The Federal rules restrict any use of the information to criminally investigate or prosecute any alcohol or drug abuse patient.[facility] HospitalIn the event this information is protected by the Federal Confidentiality of Alcohol and Drug Abuse Patient Records regulations: The Federal rules restrict any use of the information to criminally investigate or prosecute any alcohol or drug abuse patient.[facility] HospitalIn the event this information is protected by the Federal Confidentiality of Alcohol and Drug Abuse Patient Records regulations: The Federal rules restrict any use of the information to criminally investigate or prosecute any alcohol or drug abuse patient.[facility] HospitalIn the event this information is protected by the Federal Confidentiality of Alcohol and Drug Abuse Patient Records regulations: The Federal rules restrict any use of the information to criminally investigate or prosecute any alcohol or drug abuse patient.[facility] HospitalIn the event this information is protected by the Federal Confidentiality of Alcohol and Drug Abuse Patient Records regulations: The Federal rules restrict any use of the information to criminally investigate or prosecute any alcohol or drug abuse patient.[facility] HospitalIn the event this information is protected by the Federal Confidentiality of Alcohol and Drug Abuse Patient Records regulations: The Federal rules restrict any use of the information to criminally investigate or prosecute any alcohol or drug abuse patient.[facility] HospitalIn the event this information is protected by the Federal Confidentiality of Alcohol and Drug Abuse Patient Records regulations: The Federal rules restrict any use of the information to criminally investigate or prosecute any alcohol or drug abuse patient.[facility] HospitalIn the event this information is protected by the Federal Confidentiality of Alcohol and Drug Abuse Patient Records regulations: The Federal rules restrict any use of the information to criminally investigate or prosecute any alcohol or drug abuse patient.[facility] HospitalIn the event this information is protected by the Federal Confidentiality of Alcohol and Drug Abuse Patient Records regulations: The Federal rules restrict any use of the information to criminally investigate or prosecute any alcohol or drug abuse patient.[facility] HospitalIn the event this information is protected by the Federal Confidentiality of Alcohol and Drug Abuse Patient Records regulations: The Federal rules restrict any use of the information to criminally investigate or prosecute any alcohol or drug abuse patient.[facility] HospitalIn the event this information is protected by the Federal Confidentiality of Alcohol and Drug Abuse Patient Records regulations: The Federal rules restrict any use of the information to criminally investigate or prosecute any alcohol or drug abuse patient.[facility] HospitalIn the event this information is protected by the Federal Confidentiality of Alcohol and Drug Abuse Patient Records regulations: The Federal rules restrict any use of the information to criminally investigate or prosecute any alcohol or drug abuse patient.[facility] HospitalIn the event this information is protected by the Federal Confidentiality of Alcohol and Drug Abuse Patient Records regulations: The Federal rules restrict any use of the information to criminally investigate or prosecute any alcohol or drug abuse patient.[facility] HospitalIn the event this information is protected by the Federal Confidentiality of Alcohol and Drug Abuse Patient Records regulations: The Federal rules restrict any use of the information to criminally investigate or prosecute any alcohol or drug abuse patient.[facility] HospitalIn the event this information is protected by the Federal Confidentiality of Alcohol and Drug Abuse Patient Records regulations: The Federal rules restrict any use of the information to criminally investigate or prosecute any alcohol or drug abuse patient.[facility] the event this information is protected by the Federal Confidentiality of Alcohol and Drug Abuse Patient Records regulations: The Federal rules restrict any use of the information to criminally investigate or prosecute any alcohol or drug abuse patient.[facility] HospitalIn the event this information is protected by the Federal Confidentiality of Alcohol and Drug Abuse Patient Records regulations: The Federal rules restrict any use of the information to criminally investigate or prosecute any alcohol or drug abuse patient.[facility] HospitalIn the event this information is protected by the Federal Confidentiality of Alcohol and Drug Abuse Patient Records regulations: The Federal rules restrict any use of the information to criminally investigate or prosecute any alcohol or drug abuse patient.[facility]In the event this information is protected by the Federal Confidentiality of Alcohol and Drug Abuse Patient Records regulations: The Federal rules restrict any use of the information to criminally investigate or prosecute any alcohol or drug abuse patient.[facility] HospitalIn the event this information is protected by the Federal Confidentiality of Alcohol and Drug Abuse Patient Records regulations: The Federal rules restrict any use of the information to criminally investigate or prosecute any alcohol or drug abuse patient.[facility] HospitalIn the event this information is protected by the Federal Confidentiality of Alcohol and Drug Abuse Patient Records regulations: The Federal rules restrict any use of the information to criminally investigate or prosecute any alcohol or drug abuse patient.[facility] HospitalIn the event this information is protected by the Federal Confidentiality of Alcohol and Drug Abuse Patient Records regulations: The Federal rules restrict any use of the information to criminally investigate or prosecute any alcohol or drug abuse patient.[facility] HospitalIn the event this information is protected by the Federal Confidentiality of Alcohol and Drug Abuse Patient Records regulations: The Federal rules restrict any use of the information to criminally investigate or prosecute any alcohol or drug abuse patient.[facility] HospitalIn the event this information is protected by the Federal Confidentiality of Alcohol and Drug Abuse Patient Records regulations: The Federal rules restrict any use of the information to criminally investigate or prosecute any alcohol or drug abuse patient.[facility] HospitalIn the event this information is protected by the Federal Confidentiality of Alcohol and Drug Abuse Patient Records regulations: The Federal rules restrict any use of the information to criminally investigate or prosecute any alcohol or drug abuse patient.[facility] HospitalIn the event this information is protected by the Federal Confidentiality of Alcohol and Drug Abuse Patient Records regulations: The Federal rules restrict any use of the information to criminally investigate or prosecute any alcohol or drug abuse patient.[facility] HospitalIn the event this information is protected by the Federal Confidentiality of Alcohol and Drug Abuse Patient Records regulations: The Federal rules restrict any use of the information to criminally investigate or prosecute any alcohol or drug abuse patient.[facility] HospitalIn the event this information is protected by the Federal Confidentiality of Alcohol and Drug Abuse Patient Records regulations: The Federal rules restrict any use of the information to criminally investigate or prosecute any alcohol or drug abuse patient.[facility] HospitalIn the event this information is protected by the Federal Confidentiality of Alcohol and Drug Abuse Patient Records regulations: The Federal rules restrict any use of the information to criminally investigate or prosecute any alcohol or drug abuse patient.[facility] HospitalIn the event this information is protected by the Federal Confidentiality of Alcohol and Drug Abuse Patient Records regulations: The Federal rules restrict any use of the information to criminally investigate or prosecute any alcohol or drug abuse patient.[facility] HospitalIn the event this information is protected by the Federal Confidentiality of Alcohol and Drug Abuse Patient Records regulations: The Federal rules restrict any use of the information to criminally investigate or prosecute any alcohol or drug abuse patient.[facility] HospitalIn the event this information is protected by the Federal Confidentiality of Alcohol and Drug Abuse Patient Records regulations: The Federal rules restrict any use of the information to criminally investigate or prosecute any alcohol or drug abuse patient.[facility] HospitalIn the event this information is protected by the Federal Confidentiality of Alcohol and Drug Abuse Patient Records regulations: The Federal rules restrict any use of the information to criminally investigate or prosecute any alcohol or drug abuse patient.[facility] HospitalIn the event this information is protected by the Federal Confidentiality of Alcohol and Drug Abuse Patient Records regulations: The Federal rules restrict any use of the information to criminally investigate or prosecute any alcohol or drug abuse patient.[facility] HospitalIn the event this information is protected by the Federal Confidentiality of Alcohol and Drug Abuse Patient Records regulations: The Federal rules restrict any use of the information to criminally investigate or prosecute any alcohol or drug abuse patient.[facility] HospitalIn the event this information is protected by the Federal Confidentiality of Alcohol and Drug Abuse Patient Records regulations: The Federal rules restrict any use of the information to criminally investigate or prosecute any alcohol or drug abuse patient.[facility] HospitalIn the event this information is protected by the Federal Confidentiality of Alcohol and Drug Abuse Patient Records regulations: The Federal rules restrict any use of the information to criminally investigate or prosecute any alcohol or drug abuse patient.[facility] HospitalIn the event this information is protected by the Federal Confidentiality of Alcohol and Drug Abuse Patient Records regulations: The Federal rules restrict any use of the information to criminally investigate or prosecute any alcohol or drug abuse patient.[facility] HospitalIn the event this information is protected by the Federal Confidentiality of Alcohol and Drug Abuse Patient Records regulations: The Federal rules restrict any use of the information to criminally investigate or prosecute any alcohol or drug abuse patient.[facility] HospitalIn the event this information is protected by the Federal Confidentiality of Alcohol and Drug Abuse Patient Records regulations: The Federal rules restrict any use of the information to criminally investigate or prosecute any alcohol or drug abuse patient.[facility] HospitalIn the event this information is protected by the Federal Confidentiality of Alcohol and Drug Abuse Patient Records regulations: The Federal rules restrict any use of the information to criminally investigate or prosecute any alcohol or drug abuse patient.[facility] HospitalIn the event this information is protected by the Federal Confidentiality of Alcohol and Drug Abuse Patient Records regulations: The Federal rules restrict any use of the information to criminally investigate or prosecute any alcohol or drug abuse patient.[facility] HospitalIn the event this information is protected by the Federal Confidentiality of Alcohol and Drug Abuse Patient Records regulations: The Federal rules restrict any use of the information to criminally investigate or prosecute any alcohol or drug abuse patient.[facility] HospitalIn the event this information is protected by the Federal Confidentiality of Alcohol and Drug Abuse Patient Records regulations: The Federal rules restrict any use of the information to criminally investigate or prosecute any alcohol or drug abuse patient.[facility] HospitalIn the event this information is protected by the Federal Confidentiality of Alcohol and Drug Abuse Patient Records regulations: The Federal rules restrict any use of the information to criminally investigate or prosecute any alcohol or drug abuse patient.[facility] HospitalIn the event this information is protected by the Federal Confidentiality of Alcohol and Drug Abuse Patient Records regulations: The Federal rules restrict any use of the information to criminally investigate or prosecute any alcohol or drug abuse patient.[facility] HospitalIn the event this information is protected by the Federal Confidentiality of Alcohol and Drug Abuse Patient Records regulations: The Federal rules restrict any use of the information to criminally investigate or prosecute any alcohol or drug abuse patient.[facility] HospitalIn the event this information is protected by the Federal Confidentiality of Alcohol and Drug Abuse Patient Records regulations: The Federal rules restrict any use of the information to criminally investigate or prosecute any alcohol or drug abuse patient.[facility] HospitalIn the event this information is protected by the Federal Confidentiality of Alcohol and Drug Abuse Patient Records regulations: The Federal rules restrict any use of the information to criminally investigate or prosecute any alcohol or drug abuse patient.[facility] HospitalIn the event this information is protected by the Federal Confidentiality of Alcohol and Drug Abuse Patient Records regulations: The Federal rules restrict any use of the information to criminally investigate or prosecute any alcohol or drug abuse patient.[facility] HospitalIn the event this information is protected by the Federal Confidentiality of Alcohol and Drug Abuse Patient Records regulations: The Federal rules restrict any use of the information to criminally investigate or prosecute any alcohol or drug abuse patient.[facility] HospitalIn the event this information is protected by the Federal Confidentiality of Alcohol and Drug Abuse Patient Records regulations: The Federal rules restrict any use of the information to criminally investigate or prosecute any alcohol or drug abuse patient.[facility] HospitalIn the event this information is protected by the Federal Confidentiality of Alcohol and Drug Abuse Patient Records regulations: The Federal rules restrict any use of the information to criminally investigate or prosecute any alcohol or drug abuse patient.[facility] HospitalIn the event this information is protected by the Federal Confidentiality of Alcohol and Drug Abuse Patient Records regulations: The Federal rules restrict any use of the information to criminally investigate or prosecute any alcohol or drug abuse patient.[facility] HospitalIn the event this information is protected by the Federal Confidentiality of Alcohol and Drug Abuse Patient Records regulations: The Federal rules restrict any use of the information to criminally investigate or prosecute any alcohol or drug abuse patient.[facility] HospitalIn the event this information is protected by the Federal Confidentiality of Alcohol and Drug Abuse Patient Records regulations: The Federal rules restrict any use of the information to criminally investigate or prosecute any alcohol or drug abuse patient.[facility] HospitalIn the event this information is protected by the Federal Confidentiality of Alcohol and Drug Abuse Patient Records regulations: The Federal rules restrict any use of the information to criminally investigate or prosecute any alcohol or drug abuse patient.[facility] HospitalIn the event this information is protected by the Federal Confidentiality of Alcohol and Drug Abuse Patient Records regulations: The Federal rules restrict any use of the information to criminally investigate or prosecute any alcohol or drug abuse patient.[facility] HospitalIn the event this information is protected by the Federal Confidentiality of Alcohol and Drug Abuse Patient Records regulations: The Federal rules restrict any use of the information to criminally investigate or prosecute any alcohol or drug abuse patient.[facility] HospitalIn the event this information is protected by the Federal Confidentiality of Alcohol and Drug Abuse Patient Records regulations: The Federal rules restrict any use of the information to criminally investigate or prosecute any alcohol or drug abuse patient.[facility] HospitalIn the event this information is protected by the Federal Confidentiality of Alcohol and Drug Abuse Patient Records regulations: The Federal rules restrict any use of the information to criminally investigate or prosecute any alcohol or drug abuse patient.[facility] HospitalIn the event this information is protected by the Federal Confidentiality of Alcohol and Drug Abuse Patient Records regulations: The Federal rules restrict any use of the information to criminally investigate or prosecute any alcohol or drug abuse patient.[facility] HospitalIn the event this information is protected by the Federal Confidentiality of Alcohol and Drug Abuse Patient Records regulations: The Federal rules restrict any use of the information to criminally investigate or prosecute any alcohol or drug abuse patient.[facility] HospitalIn the event this information is protected by the Federal Confidentiality of Alcohol and Drug Abuse Patient Records regulations: The Federal rules restrict any use of the information to criminally investigate or prosecute any alcohol or drug abuse patient.[facility] HospitalIn the event this information is protected by the Federal Confidentiality of Alcohol and Drug Abuse Patient Records regulations: The Federal rules restrict any use of the information to criminally investigate or prosecute any alcohol or drug abuse patient.[facility] the event this information is protected by the Federal Confidentiality of Alcohol and Drug Abuse Patient Records regulations: The Federal rules restrict any use of the information to criminally investigate or prosecute any alcohol or drug abuse patient.[facility] HospitalIn the event this information is protected by the Federal Confidentiality of Alcohol and Drug Abuse Patient Records regulations: The Federal rules restrict any use of the information to criminally investigate or prosecute any alcohol or drug abuse patient.[facility] HospitalIn the event this information is protected by the Federal Confidentiality of Alcohol and Drug Abuse Patient Records regulations: The Federal rules restrict any use of the information to criminally investigate or prosecute any alcohol or drug abuse patient.[facility]In the event this information is protected by the Federal Confidentiality of Alcohol and Drug Abuse Patient Records regulations: The Federal rules restrict any use of the information to criminally investigate or prosecute any alcohol or drug abuse patient.[facility] HospitalIn the event this information is protected by the Federal Confidentiality of Alcohol and Drug Abuse Patient Records regulations: The Federal rules restrict any use of the information to criminally investigate or prosecute any alcohol or drug abuse patient.[facility] HospitalIn the event this information is protected by the Federal Confidentiality of Alcohol and Drug Abuse Patient Records regulations: The Federal rules restrict any use of the information to criminally investigate or prosecute any alcohol or drug abuse patient.[facility] HospitalIn the event this information is protected by the Federal Confidentiality of Alcohol and Drug Abuse Patient Records regulations: The Federal rules restrict any use of the information to criminally investigate or prosecute any alcohol or drug abuse patient.[facility] HospitalIn the event this information is protected by the Federal Confidentiality of Alcohol and Drug Abuse Patient Records regulations: The Federal rules restrict any use of the information to criminally investigate or prosecute any alcohol or drug abuse patient.[facility] HospitalIn the event this information is protected by the Federal Confidentiality of Alcohol and Drug Abuse Patient Records regulations: The Federal rules restrict any use of the information to criminally investigate or prosecute any alcohol or drug abuse patient.[facility] HospitalIn the event this information is protected by the Federal Confidentiality of Alcohol and Drug Abuse Patient Records regulations: The Federal rules restrict any use of the information to criminally investigate or prosecute any alcohol or drug abuse patient.[facility] HospitalIn the event this information is protected by the Federal Confidentiality of Alcohol and Drug Abuse Patient Records regulations: The Federal rules restrict any use of the information to criminally investigate or prosecute any alcohol or drug abuse patient.[facility] HospitalIn the event this information is protected by the Federal Confidentiality of Alcohol and Drug Abuse Patient Records regulations: The Federal rules restrict any use of the information to criminally investigate or prosecute any alcohol or drug abuse patient.[facility] HospitalIn the event this information is protected by the Federal Confidentiality of Alcohol and Drug Abuse Patient Records regulations: The Federal rules restrict any use of the information to criminally investigate or prosecute any alcohol or drug abuse patient.[facility] HospitalIn the event this information is protected by the Federal Confidentiality of Alcohol and Drug Abuse Patient Records regulations: The Federal rules restrict any use of the information to criminally investigate or prosecute any alcohol or drug abuse patient.[facility] HospitalIn the event this information is protected by the Federal Confidentiality of Alcohol and Drug Abuse Patient Records regulations: The Federal rules restrict any use of the information to criminally investigate or prosecute any alcohol or drug abuse patient.[facility] HospitalIn the event this information is protected by the Federal Confidentiality of Alcohol and Drug Abuse Patient Records regulations: The Federal rules restrict any use of the information to criminally investigate or prosecute any alcohol or drug abuse patient.[facility] HospitalIn the event this information is protected by the Federal Confidentiality of Alcohol and Drug Abuse Patient Records regulations: The Federal rules restrict any use of the information to criminally investigate or prosecute any alcohol or drug abuse patient.[facility] HospitalIn the event this information is protected by the Federal Confidentiality of Alcohol and Drug Abuse Patient Records regulations: The Federal rules restrict any use of the information to criminally investigate or prosecute any alcohol or drug abuse patient.[facility] HospitalIn the event this information is protected by the Federal Confidentiality of Alcohol and Drug Abuse Patient Records regulations: The Federal rules restrict any use of the information to criminally investigate or prosecute any alcohol or drug abuse patient.[facility] HospitalIn the event this information is protected by the Federal Confidentiality of Alcohol and Drug Abuse Patient Records regulations: The Federal rules restrict any use of the information to criminally investigate or prosecute any alcohol or drug abuse patient.[facility] HospitalIn the event this information is protected by the Federal Confidentiality of Alcohol and Drug Abuse Patient Records regulations: The Federal rules restrict any use of the information to criminally investigate or prosecute any alcohol or drug abuse patient.[facility] HospitalIn the event this information is protected by the Federal Confidentiality of Alcohol and Drug Abuse Patient Records regulations: The Federal rules restrict any use of the information to criminally investigate or prosecute any alcohol or drug abuse patient.[facility] HospitalIn the event this information is protected by the Federal Confidentiality of Alcohol and Drug Abuse Patient Records regulations: The Federal rules restrict any use of the information to criminally investigate or prosecute any alcohol or drug abuse patient.[facility] HospitalIn the event this information is protected by the Federal Confidentiality of Alcohol and Drug Abuse Patient Records regulations: The Federal rules restrict any use of the information to criminally investigate or prosecute any alcohol or drug abuse patient.[facility] HospitalIn the event this information is protected by the Federal Confidentiality of Alcohol and Drug Abuse Patient Records regulations: The Federal rules restrict any use of the information to criminally investigate or prosecute any alcohol or drug abuse patient.[facility] HospitalIn the event this information is protected by the Federal Confidentiality of Alcohol and Drug Abuse Patient Records regulations: The Federal rules restrict any use of the information to criminally investigate or prosecute any alcohol or drug abuse patient.[facility] HospitalIn the event this information is protected by the Federal Confidentiality of Alcohol and Drug Abuse Patient Records regulations: The Federal rules restrict any use of the information to criminally investigate or prosecute any alcohol or drug abuse patient.[facility] HospitalIn the event this information is protected by the Federal Confidentiality of Alcohol and Drug Abuse Patient Records regulations: The Federal rules restrict any use of the information to criminally investigate or prosecute any alcohol or drug abuse patient.[facility] HospitalIn the event this information is protected by the Federal Confidentiality of Alcohol and Drug Abuse Patient Records regulations: The Federal rules restrict any use of the information to criminally investigate or prosecute any alcohol or drug abuse patient.[facility] HospitalIn the event this information is protected by the Federal Confidentiality of Alcohol and Drug Abuse Patient Records regulations: The Federal rules restrict any use of the information to criminally investigate or prosecute any alcohol or drug abuse patient.[facility] HospitalIn the event this information is protected by the Federal Confidentiality of Alcohol and Drug Abuse Patient Records regulations: The Federal rules restrict any use of the information to criminally investigate or prosecute any alcohol or drug abuse patient.[facility] HospitalIn the event this information is protected by the Federal Confidentiality of Alcohol and Drug Abuse Patient Records regulations: The Federal rules restrict any use of the information to criminally investigate or prosecute any alcohol or drug abuse patient.[facility] HospitalIn the event this information is protected by the Federal Confidentiality of Alcohol and Drug Abuse Patient Records regulations: The Federal rules restrict any use of the information to criminally investigate or prosecute any alcohol or drug abuse patient.[facility] HospitalIn the event this information is protected by the Federal Confidentiality of Alcohol and Drug Abuse Patient Records regulations: The Federal rules restrict any use of the information to criminally investigate or prosecute any alcohol or drug abuse patient.[facility] HospitalIn the event this information is protected by the Federal Confidentiality of Alcohol and Drug Abuse Patient Records regulations: The Federal rules restrict any use of the information to criminally investigate or prosecute any alcohol or drug abuse patient.[facility] HospitalIn the event this information is protected by the Federal Confidentiality of Alcohol and Drug Abuse Patient Records regulations: The Federal rules restrict any use of the information to criminally investigate or prosecute any alcohol or drug abuse patient.[facility] HospitalIn the event this information is protected by the Federal Confidentiality of Alcohol and Drug Abuse Patient Records regulations: The Federal rules restrict any use of the information to criminally investigate or prosecute any alcohol or drug abuse patient.[facility] HospitalIn the event this information is protected by the Federal Confidentiality of Alcohol and Drug Abuse Patient Records regulations: The Federal rules restrict any use of the information to criminally investigate or prosecute any alcohol or drug abuse patient.[facility] HospitalIn the event this information is protected by the Federal Confidentiality of Alcohol and Drug Abuse Patient Records regulations: The Federal rules restrict any use of the information to criminally investigate or prosecute any alcohol or drug abuse patient.[facility] HospitalIn the event this information is protected by the Federal Confidentiality of Alcohol and Drug Abuse Patient Records regulations: The Federal rules restrict any use of the information to criminally investigate or prosecute any alcohol or drug abuse patient.[facility] HospitalIn the event this information is protected by the Federal Confidentiality of Alcohol and Drug Abuse Patient Records regulations: The Federal rules restrict any use of the information to criminally investigate or prosecute any alcohol or drug abuse patient.[facility] HospitalIn the event this information is protected by the Federal Confidentiality of Alcohol and Drug Abuse Patient Records regulations: The Federal rules restrict any use of the information to criminally investigate or prosecute any alcohol or drug abuse patient.[facility] HospitalIn the event this information is protected by the Federal Confidentiality of Alcohol and Drug Abuse Patient Records regulations: The Federal rules restrict any use of the information to criminally investigate or prosecute any alcohol or drug abuse patient.[facility] HospitalIn the event this information is protected by the Federal Confidentiality of Alcohol and Drug Abuse Patient Records regulations: The Federal rules restrict any use of the information to criminally investigate or prosecute any alcohol or drug abuse patient.[facility] HospitalIn the event this information is protected by the Federal Confidentiality of Alcohol and Drug Abuse Patient Records regulations: The Federal rules restrict any use of the information to criminally investigate or prosecute any alcohol or drug abuse patient.[facility] HospitalIn the event this information is protected by the Federal Confidentiality of Alcohol and Drug Abuse Patient Records regulations: The Federal rules restrict any use of the information to criminally investigate or prosecute any alcohol or drug abuse patient.[facility] HospitalIn the event this information is protected by the Federal Confidentiality of Alcohol and Drug Abuse Patient Records regulations: The Federal rules restrict any use of the information to criminally investigate or prosecute any alcohol or drug abuse patient.[facility] HospitalIn the event this information is protected by the Federal Confidentiality of Alcohol and Drug Abuse Patient Records regulations: The Federal rules restrict any use of the information to criminally investigate or prosecute any alcohol or drug abuse patient.[facility] HospitalIn the event this information is protected by the Federal Confidentiality of Alcohol and Drug Abuse Patient Records regulations: The Federal rules restrict any use of the information to criminally investigate or prosecute any alcohol or drug abuse patient.[facility] HospitalIn the event this information is protected by the Federal Confidentiality of Alcohol and Drug Abuse Patient Records regulations: The Federal rules restrict any use of the information to criminally investigate or prosecute any alcohol or drug abuse patient.[facility] the event this information is protected by the Federal Confidentiality of Alcohol and Drug Abuse Patient Records regulations: The Federal rules restrict any use of the information to criminally investigate or prosecute any alcohol or drug abuse patient.[facility] HospitalIn the event this information is protected by the Federal Confidentiality of Alcohol and Drug Abuse Patient Records regulations: The Federal rules restrict any use of the information to criminally investigate or prosecute any alcohol or drug abuse patient.[facility] HospitalIn the event this information is protected by the Federal Confidentiality of Alcohol and Drug Abuse Patient Records regulations: The Federal rules restrict any use of the information to criminally investigate or prosecute any alcohol or drug abuse patient.[facility] the event this information is protected by the Federal Confidentiality of Alcohol and Drug Abuse Patient Records regulations: The Federal rules restrict any use of the information to criminally investigate or prosecute any alcohol or drug abuse patient.[facility] HospitalIn the event this information is protected by the Federal Confidentiality of Alcohol and Drug Abuse Patient Records regulations: The Federal rules restrict any use of the information to criminally investigate or prosecute any alcohol or drug abuse patient.[facility] HospitalIn the event this information is protected by the Federal Confidentiality of Alcohol and Drug Abuse Patient Records regulations: The Federal rules restrict any use of the information to criminally investigate or prosecute any alcohol or drug abuse patient.[facility] HospitalIn the event this information is protected by the Federal Confidentiality of Alcohol and Drug Abuse Patient Records regulations: The Federal rules restrict any use of the information to criminally investigate or prosecute any alcohol or drug abuse patient.[facility] HospitalIn the event this information is protected by the Federal Confidentiality of Alcohol and Drug Abuse Patient Records regulations: The Federal rules restrict any use of the information to criminally investigate or prosecute any alcohol or drug abuse patient.[facility] HospitalIn the event this information is protected by the Federal Confidentiality of Alcohol and Drug Abuse Patient Records regulations: The Federal rules restrict any use of the information to criminally investigate or prosecute any alcohol or drug abuse patient.[facility] HospitalIn the event this information is protected by the Federal Confidentiality of Alcohol and Drug Abuse Patient Records regulations: The Federal rules restrict any use of the information to criminally investigate or prosecute any alcohol or drug abuse patient.[facility] HospitalIn the event this information is protected by the Federal Confidentiality of Alcohol and Drug Abuse Patient Records regulations: The Federal rules restrict any use of the information to criminally investigate or prosecute any alcohol or drug abuse patient.[facility] HospitalIn the event this information is protected by the Federal Confidentiality of Alcohol and Drug Abuse Patient Records regulations: The Federal rules restrict any use of the information to criminally investigate or prosecute any alcohol or drug abuse patient.[facility] HospitalIn the event this information is protected by the Federal Confidentiality of Alcohol and Drug Abuse Patient Records regulations: The Federal rules restrict any use of the information to criminally investigate or prosecute any alcohol or drug abuse patient.[facility] HospitalIn the event this information is protected by the Federal Confidentiality of Alcohol and Drug Abuse Patient Records regulations: The Federal rules restrict any use of the information to criminally investigate or prosecute any alcohol or drug abuse patient.[facility] HospitalIn the event this information is protected by the Federal Confidentiality of Alcohol and Drug Abuse Patient Records regulations: The Federal rules restrict any use of the information to criminally investigate or prosecute any alcohol or drug abuse patient.[facility] HospitalIn the event this information is protected by the Federal Confidentiality of Alcohol and Drug Abuse Patient Records regulations: The Federal rules restrict any use of the information to criminally investigate or prosecute any alcohol or drug abuse patient.[facility] HospitalIn the event this information is protected by the Federal Confidentiality of Alcohol and Drug Abuse Patient Records regulations: The Federal rules restrict any use of the information to criminally investigate or prosecute any alcohol or drug abuse patient.[facility] HospitalIn the event this information is protected by the Federal Confidentiality of Alcohol and Drug Abuse Patient Records regulations: The Federal rules restrict any use of the information to criminally investigate or prosecute any alcohol or drug abuse patient.[facility] HospitalIn the event this information is protected by the Federal Confidentiality of Alcohol and Drug Abuse Patient Records regulations: The Federal rules restrict any use of the information to criminally investigate or prosecute any alcohol or drug abuse patient.[facility] HospitalIn the event this information is protected by the Federal Confidentiality of Alcohol and Drug Abuse Patient Records regulations: The Federal rules restrict any use of the information to criminally investigate or prosecute any alcohol or drug abuse patient.[facility] HospitalIn the event this information is protected by the Federal Confidentiality of Alcohol and Drug Abuse Patient Records regulations: The Federal rules restrict any use of the information to criminally investigate or prosecute any alcohol or drug abuse patient.[facility] HospitalIn the event this information is protected by the Federal Confidentiality of Alcohol and Drug Abuse Patient Records regulations: The Federal rules restrict any use of the information to criminally investigate or prosecute any alcohol or drug abuse patient.[facility] HospitalIn the event this information is protected by the Federal Confidentiality of Alcohol and Drug Abuse Patient Records regulations: The Federal rules restrict any use of the information to criminally investigate or prosecute any alcohol or drug abuse patient.[facility] Care Teams (unrecognized sec tion and content) Wind Development Director Relationship Specialty Start Date End Date Jacinta Rivas MD [address] [place], [place] [id number] PCP - General Internal Medicine 02/03/19 Dena Lechuga, FE Specialty Production Line Welder Oncology 04/24/17 Jesus Carter MD, MD [address] [place] [address] Physician Radiation Oncology 04/24/17 Lisa Malhotra, FE [address] [place] [address] Research Nurse Hematology/Oncology 05/23/18 Taz Howard MD [address] [address] Home Care Physician Orthopedics 03/20/19 Taz Howard MD [address] [address] Referring Orthopedics 03/20/19 Lizeth Acosta, PT [address] [place], [place] [id number] Media Reporter Acute Care 03/21/19 Wind Development Director Relationship Specialty Start Date End Date Jacinta Rivas MD [address] [place], [place] [id number] PCP - General Internal Medicine 02/03/19 Doup, Dena, RN Specialty Production Line Welder Oncology 04/24/17 Jesus Carter MD, [address] [place] [address] Physician Radiation Oncology 04/24/17 Lisa Malhotra, FE [address] [place] [address] Research Nurse Hematology/Oncology 05/23/18 Taz Howard MD [address] [address] Home Care Physician Orthopedics 03/20/19 Taz Howard MD [facility] [address] [address] Referring Orthopedics 03/20/19 Lizeth Acosta, PT [address] [place] [address] Media Reporter Acute Care 03/21/19 Wind Development Director Relationship Specialty Start Date End Date Jacinta Rivas MD [address] [place] [address] PCP - General Internal Medicine 02/03/19 Dena Lechuga RN Specialty Production Line Welder Oncology 04/24/17 Jesus Carter MD, [address] [place] [address] Physician Radiation Oncology 04/24/17 Lisa Malhotra, FE [address] [facility] [place] [address] Research Nurse Hematology/Oncology 05/23/18 Taz Howard MD [address] [address] Home Care Physician Orthopedics 03/20/19 Taz Howard MD [address] [address] Referring Orthopedics 03/20/19 Lizeht Acosta, PT [address] [place] [address] Media Reporter Acute Care 03/21/19 Wind Development Director Relationship Specialty Start Date End Date Jacinta Rivas MD [address] [place] [address] PCP - General Internal Medicine 02/03/19 Dena Lechuga RN Specialty Production Line Welder Oncology 04/24/17 Jesus Carter MD, MD [address] [place] [address] Physician Radiation Oncology 04/24/17 Lisa Malhotra RN [address] [place] [address] Research Nurse Hematology/Oncology 05/23/18 Taz Howard MD [address] [address] Home Care Physician Orthopedics 03/20/19 Taz Howard MD [address] [address] Referring Orthopedics 03/20/19 Lizeth Acosta, PT [address] [place] [address] Media Reporter Acute Care 03/21/19 Wind Development Director Relationship Specialty Start Date End Date Jacinta Rivas MD [address] [place] [address] PCP - General Internal Medicine 02/03/19 Dena Lechuga RN Specialty Production Line Welder Oncology 04/24/17 Jesus Carter MD, [address] [facility] [place] [address] Physician Radiation Oncology 04/24/17 Lisa Malhotra, FE [address] [place] [address] Research Nurse Hematology/Oncology 05/23/18 Taz Howard MD [address] [address] Home Care Physician Orthopedics 03/20/19 Taz Howard MD [address] [address] Referring Orthopedics 03/20/19 Lizeth Acosta, PT [address] [place] [address] Media Reporter Acute Care 03/21/19 Wind Development Director Relationship Specialty Start Date End Date Jacinta Rivas MD [address] [place] [address] PCP - General Internal Medicine 02/03/19 Dena Lechuga RN Specialty Production Line Welder Oncology 04/24/17 Jesus Carter MD, [address] [place] [address] Physician Radiation Oncology 04/24/17 Lisa Malhotra, FE [address] [place] [address] Research Nurse Hematology/Oncology 05/23/18 Taz Howard MD [address] [address] Home Care Physician Orthopedics 03/20/19 Taz Howard MD [address] [address] Referring Orthopedics 03/20/19 Lizeth Acosta, PT [address] [place] [address] Media Reporter Acute Care 03/21/19 Wind Development Director Relationship Specialty Start Date End Date Jacinta Rivas MD [address] [facility] [place] [address] PCP - General Internal Medicine 02/03/19 Dena Lechuga RN Specialty Production Line Welder Oncology 04/24/17 Jesus Carter MD, [address] [facility] [place] [address] Physician Radiation Oncology 04/24/17 Lisa Malhotra, FE [address] [facility] [place] [address] Research Nurse Hematology/Oncology 05/23/18 Taz Howard MD [address] [address] Home Care Physician Orthopedics 03/20/19 Taz Howard MD [address] [address] Referring Orthopedics 03/20/19 Lizeth Acosta, PT [address] [facility] [place] [address] Media Reporter Acute Care 03/21/19 Wind Development Director Relationship Specialty Start Date End Date Jacinta Rivas MD [address] [facility] [place] [address] PCP - General Internal Medicine 02/03/19 Dena Lechuga RN Specialty Production Line Welder Oncology 04/24/17 Jesus Carter MD, [address] [place] [address] Physician Radiation Oncology 04/24/17 Lisa Malhotra, FE [address] [place] [address] Research Nurse Hematology/Oncology 05/23/18 Taz Howard MD [address] [address] Home Care Physician Orthopedics 03/20/19 Taz Howard MD [address] [place] [address] Referring Orthopedics 03/20/19 Lizeth Acosta, PT [address] [place] [address] Media Reporter Acute Care 03/21/19 Wind Development Director Relationship Specialty Start Date End Date Jacinta Rivas MD [address] [place] [address] PCP - General Internal Medicine 02/03/19 Dena Lechuga RN Specialty Production Line Welder Oncology 04/24/17 Jesus Carter MD, [address] [place] [address] Physician Radiation Oncology 04/24/17 Lisa Malhotra RN [address] [place] [address] Research Nurse Hematology/Oncology 05/23/18 Taz Howard MD [address] [address] Home Care Provider Orthopedics 03/20/19 Taz Howard MD [address] [place] [address] Referring Orthopedics 03/20/19 Lizeth Acosta, PT [address] [place] [address] Media Reporter Acute Care 03/21/19 Wind Development Director Relationship Specialty Start Date End Date Jacinta Rivas MD [address] [place] [address] PCP - General Internal Medicine 02/03/19 Dena Lechuga, RN Specialty Production Line Welder Oncology 04/24/17 Jesus Carter MD, [address] [place] [address] Physician Radiation Oncology 04/24/17 Lisa Malhotra, FE [address] [place] [address] Research Nurse Hematology/Oncology 05/23/18 Taz Howard MD [address] [address] Home Care Provider Orthopedics 03/20/19 Taz Howard MD [address] [address] Referring Orthopedics 03/20/19 Lizeth Acosta, PT [address] [place], [place] [phone] Media Reporter Acute Care 03/21/19 Wind Development Director Relationship Specialty Start Date End Date Jacinta Rivas MD [address] [place] [address] PCP - General Internal Medicine 02/03/19 Dena Lechuga, RN Specialty Production Line Welder Oncology 04/24/17 Jesus Carter MD, [address] [place] [address] Physician Radiation Oncology 04/24/17 Taz Howard MD [address] [address] Home Care Provider Orthopedics 03/20/19 Taz Howard MD [address] [address] Referring Orthopedics 03/20/19 Lizeth Acosta, PT [address] [place] [address] Media Reporter Acute Care 03/21/19 Wind Development Director Relationship Specialty Start Date End Date Jacinta Rivas MD [address] [place] [address] PCP - General Internal Medicine 02/03/19 Dena Lechuga, RN Specialty Production Line Welder Oncology 04/24/17 Jesus Carter MD, MD [address] [place] [address] Physician Radiation Oncology 04/24/17 Taz Howard MD [address] [address] Home Care Provider Orthopedics 03/20/19 Taz Howard MD [address] [address] Referring Orthopedics 03/20/19 Lizeth Acosta, PT [address] [place] [address] Media Reporter Acute Care 03/21/19 Wind Development Director Relationship Specialty Start Date End Date Jacinta Rivas MD [address] [place] [address] PCP - General Internal Medicine 02/03/19 Dena Lechuga, FE Specialty Production Line Welder Oncology 04/24/17 Jesus Carter MD, [address] [place] [address] Physician Radiation Oncology 04/24/17 Taz Howard MD [address] [address] Home Care Provider Orthopedics 03/20/19 Taz Howard MD [address] [address] Referring Orthopedics 03/20/19 Lizeth Acosta, PT [address] [place] [address] Media Reporter Acute Care 03/21/19 Wind Development Director Relationship Specialty Start Date End Date Jacinta Rivas MD [address] [place] [address] PCP - General Internal Medicine 02/03/19 Dena Lechuga RN Specialty Production Line Welder Oncology 04/24/17 Jesus Carter MD, [address] [place] [address] Physician Radiation Oncology 04/24/17 Taz Howard MD [address] [address] Home Care Provider Orthopedics 03/20/19 Taz Howard MD [address] [address] Referring Orthopedics 03/20/19 Lizeth Acosta, PT [address] [place] [address] Media Reporter Acute Care 03/21/19 Wind Development Director Relationship Specialty Start Date End Date Jacinta Rivas MD [address] [place] [address] PCP - General Internal Medicine 02/03/19 Dena Lechuga RN Specialty Production Line Welder Oncology 04/24/17 Jesus Carter MD, [address] [place] [address] Physician Radiation Oncology 04/24/17 Taz Howard MD [address] [address] Home Care Provider Orthopedics 03/20/19 Taz Howard MD [address] [address] Referring Orthopedics 03/20/19 Lizeth Acosta, PT [address] [place] [address] Media Reporter Acute Care 03/21/19 Wind Development Director Relationship Specialty Start Date End Date Jacinta Rivas MD [address] [place] [address] PCP - General Internal Medicine 02/03/19 Dena Lechuga, RN Specialty Production Line Welder Oncology 04/24/17 Jesus Catrer MD, [address] [place] [address] Physician Radiation Oncology 04/24/17 Taz Howard MD [address] [address] Home Care Provider Orthopedics 03/20/19 Taz Howard MD [address] [address] Referring Orthopedics 03/20/19 Lizeth Acosta, PT [address] [place], [place] [phone] Media Reporter Acute Care 03/21/19 Wind Development Director Relationship Specialty Start Date End Date Jacinta Rivas MD [address] [place] [address] PCP - General Internal Medicine 02/03/19 Dena Lechuga, RN Specialty Production Line Welder Oncology 04/24/17 Jesus Carter MD, MD [address] [place] [address] Physician Radiation Oncology 04/24/17 Taz Howard MD [address] [address] Home Care Provider Orthopedics 03/20/19 Taz Howard MD [address] [address] Referring Orthopedics 03/20/19 Lizeth Acosta, PT [address] [place] [address] Media Reporter Acute Care 03/21/19 Wind Development Director Relationship Specialty Start Date End Date Jacinta Rivas MD [address] [place] [address] PCP - General Internal Medicine 02/03/19 Dena Lechuga, RN Specialty Production Line Welder Oncology 04/24/17 Jesus Carter MD, [address] [place] [address] Physician Radiation Oncology 04/24/17 Taz Howard MD [address] [address] Home Care Provider Orthopedics 03/20/19 Taz Howard MD [address] [address] Referring Orthopedics 03/20/19 Lizeth Acosta, PT [address] [place], [place] [phone] Media Reporter Acute Care 03/21/19 Wind Development Director Relationship Specialty Start Date End Date Jacinta Rivas MD [address] [place], [place] [address] PCP - General Internal Medicine 02/03/19 Dena Lechuga, RN Specialty Production Line Welder Oncology 04/24/17 Jesus Carter MD, [address] [place] [address] Physician Radiation Oncology 04/24/17 Taz Howard MD [address] [address] Home Care Provider Orthopedics 03/20/19 Taz Howard MD [address] [address] Referring Orthopedics 03/20/19 Lizeth Acosta, PT [address] [place] [address] Media Reporter Acute Care 03/21/19 Wind Development Director Relationship Specialty Start Date End Date Jacinta Rivas MD [address] [place] [address] PCP - General Internal Medicine 02/03/19 Dena Lechuga, RN Specialty Production Line Welder Oncology 04/24/17 Jesus Carter MD, [address] [place] [address] Physician Radiation Oncology 04/24/17 Taz Howard MD [address] [address] Home Care Provider Orthopedics 03/20/19 Taz Howard MD [address] [address] Referring Orthopedics 03/20/19 Lizeth Acosta, PT [address] [place] [address] Media Reporter Acute Care 03/21/19 Eliz Bingham MD [address] [place] [address] General Surgery 07/04/22 Ney Hart E [facility] [address] [place] [address] Gastroenterology 07/04/22 Wind Development Director Relationship Specialty Start Date End Date Jacinta Rivas MD [address] [place] [address] PCP - General Internal Medicine 02/03/19 Dena Lechuga, RN Specialty Production Line Welder Oncology 04/24/17 Jesus Carter MD, MD [address] [place] [address] Physician Radiation Oncology 04/24/17 Taz Howard MD [address] [address] Home Care Provider Orthopedics 03/20/19 Taz Howard MD [address] [address] Referring Orthopedics 03/20/19 Lizeth Acosta, PT [address] [place] [address] Media Reporter Acute Care 03/21/19 Eliz Bingham MD [address] [place] [address] General Surgery 07/04/22 Ney Hart E [facility] [address] [place] [address] Gastroenterology 07/04/22 Wind Development Director Relationship Specialty Start Date End Date Jacinta Rivas MD [address] [place] [address] PCP - General Internal Medicine 02/03/19 Dena Lechuga, RN Specialty Production Line Welder Oncology 04/24/17 Jesus Carter MD, [address] [place] [address] Physician Radiation Oncology 04/24/17 Taz Howard MD [address] [address] Home Care Provider Orthopedics 03/20/19 Taz Howard MD [address] [place] [address] Referring Orthopedics 03/20/19 Lizeth Acosta, PT [address] [place] [address] Media Reporter Acute Care 03/21/19 Eliz Bingham MD [address] [place] [address] General Surgery 07/04/22 Ney Hart [address] [address] Gastroenterology 07/04/22 Wind Development Director Relationship Specialty Start Date End Date Jacinta Rivas MD [address] [place] [address] PCP - General Internal Medicine 02/03/19 Dena Lechuga, RN Specialty Production Line Welder Oncology 04/24/17 Jesus Carter MD, [address] [place] [address] Physician Radiation Oncology 04/24/17 Taz Howard MD [address] [id number] Home Care Provider Orthopedics 03/20/19 Taz Howard MD [address] [address] Referring Orthopedics 03/20/19 Lizeth Acosta, PT [address] [place] [address] Media Reporter Acute Care 03/21/19 Eliz Bingham MD [address] [place] [address] General Surgery 07/04/22 Ney Hart [address] [id number] Gastroenterology 07/04/22 Wind Development Director Relationship Specialty Start Date End Date Jacinta Rivas MD [address] [place] [address] PCP - General Internal Medicine 02/03/19 Dean Lechuga, RN Specialty Production Line Welder Oncology 04/24/17 Jesus Carter MD, MD 721 [facility] [place] [id number] Physician Radiation Oncology 04/24/17 Taz Howard MD [address] [address] Home Care Provider Orthopedics 03/20/19 Taz Howard MD [address] [address] Referring Orthopedics 03/20/19 Lizeth Acosta, PT [address] [place] [address] Media Reporter Acute Care 03/21/19 Eliz Bingham MD [address] [place] [address] General Surgery 07/04/22 Ney Hart 128 E [facility] 206 [place] [address] Gastroenterology 07/04/22 Wind Development Director Relationship Specialty Start Date End Date Jacinta Rivas MD [address] [place], [place] 100431 PCP - General Internal Medicine 02/03/19 Dena Lechuga RN Specialty Production Line Welder Oncology 04/24/17 Jesus Carter MD, MD [address] [place], [place] 598091 Physician Radiation Oncology 04/24/17 Taz Howard MD [address] [address] Home Care Provider Orthopedics 03/20/19 Taz Howard MD [address] [address] Referring Orthopedics 03/20/19 Lizeth Acosta, PT [address] [place] [address] Media Reporter Acute Care 03/21/19 Eliz Bingham MD [address] [id number] General Surgery 07/04/22 Ney Hart 128 E [facility] 206 [place] [address] Gastroenterology 07/04/22 Wind Development Director Relationship Specialty Start Date End Date Jacinta Rivas MD [address] [place] [address] PCP - General Internal Medicine 02/03/19 Dena Lechuga RN Specialty Production Line Welder Oncology 04/24/17 Jesus Carter MD, MD 721 E [facility] [place] [address] Physician Radiation Oncology 04/24/17 Taz Howard MD [address] [address] Home Care Provider Orthopedics 03/20/19 Taz Howard MD [address] [address] Referring Orthopedics 03/20/19 Lizeth Acosta, PT [address] [place] [address] Media Reporter Acute Care 03/21/19 Eliz Bingham MD [address] [place] [address] [id number] General Surgery 07/04/22 Ney Hart [address] [address] Gastroenterology 07/04/22 Wind Development Director Relationship Specialty Start Date End Date Jacinta Rivas MD [address] [place] [address] PCP - General Internal Medicine 02/03/19 Dena Lechuga, RN Specialty Production Line Welder Oncology 04/24/17 Jesus Carter MD, [address]21 [place] [address] Physician Radiation Oncology 04/24/17 Taz Howard MD [address] [phone] Home Care Provider Orthopedics 03/20/19 Taz Howard MD [address] [phone] Referring Orthopedics 03/20/19 Lizeth Acosta, PT [address] [place] [address] Media Reporter Acute Care 03/21/19 Eliz Bingham MD [address] [place] [address] General Surgery 07/04/22 Ney Hart [facility] 206 [place] [address] Gastroenterology 07/04/22 Wind Development Director Relationship Specialty Start Date End Date Jacinta Rivas MD [address] [place] [address] PCP - General Internal Medicine 02/03/19 Dena Lechuga, FE Specialty Production Line Welder Oncology 04/24/17 Jesus Carter MD, MD 721 E [facility] [place] [address]351 Physician Radiation Oncology 04/24/17 Taz Howard MD [address] [address] Home Care Provider Orthopedics 03/20/19 Taz Howard MD [address] [address] Referring Orthopedics 03/20/19 Lizeth Acosta, PT [address] [place] [address] Media Reporter Acute Care 03/21/19 Eliz Bingham MD [address] [place] [address] General Surgery 07/04/22 Ney HartAlexandria [facility] 206 [place] [address] Gastroenterology 07/04/22 Wind Development Director Relationship Specialty Start Date End Date Jacinta Rivas MD [address] [place] [address] PCP - General Internal Medicine 02/03/19 Dena Lechuga, RN Specialty Production Line Welder Oncology 04/24/17 Jesus Carter MD, [address] [place], [place] 522271 Physician Radiation Oncology 04/24/17 Taz Howard MD [address] [address] Home Care Provider Orthopedics 03/20/19 Taz Howard MD [address] [address] Referring Orthopedics 03/20/19 Lizeth Acosta, PT [address] [place] [address] Media Reporter Acute Care 03/21/19 Eliz Bingham MD [address] [facility] [address] [place] [address] General Surgery 07/04/22 Ney Hart [address] [address] Gastroenterology 07/04/22 Wind Development Director Relationship Specialty Start Date End Date Jacinta Rivas MD [address] [place] [address] PCP - General Internal Medicine 02/03/19 Dena Lechuga, RN Specialty Production Line Welder Oncology 04/24/17 Jesus Carter MD, MD [address] [place] [address] Physician Radiation Oncology 04/24/17 Taz Howard MD [address] [address] Home Care Provider Orthopedics 03/20/19 Taz Howard MD [address] [address] Referring Orthopedics 03/20/19 Lizeth Acosta, PT [address] [place] [address] Media Reporter Acute Care 03/21/19 Eliz Bingham MD [address] [place] [address] General Surgery 07/04/22 Ney Hart 128 E [place] [place] [address]AR [address] [place] [address] Gastroenterology 07/04/22 Wind Development Director Relationship Specialty Start Date End Date Jacinta Rivas MD [address] [place] [address] PCP - General Internal Medicine 02/03/19 Dena Lechuga, RN Specialty Production Line Welder Oncology 04/24/17 Jesus Carter MD, MD 721 [facility] [place] [address] Physician Radiation Oncology 04/24/17 Taz Howard MD [address] [address] Home Care Provider Orthopedics 03/20/19 Taz Howard MD [address] [address] Referring Orthopedics 03/20/19 Lizeth Acosta, PT [address] [place] [address] Media Reporter Acute Care 03/21/19 Eliz Bingham MD [address] [place] [id number] General Surgery 07/04/22 Ney Hart E [facility] [address] [address] Gastroenterology 07/04/22 Wind Development Director Relationship Specialty Start Date End Date Jacinta Rivas MD [address] [place], [place] 722011 PCP - General Internal Medicine 02/03/19 Dena Lechuga RN Specialty Production Line Welder Oncology 04/24/17 Jesus Carter MD, [address] [place], [place] 015551 Physician Radiation Oncology 04/24/17 Taz Howard MD [address] [facility] [address] [place] [address] Home Care Provider Orthopedics 03/20/19 Taz Howard MD [address] [facility] [address] [place] [address] Referring Orthopedics 03/20/19 Lizeth Acosta, PT [address] [place] [address] Media Reporter Acute Care 03/21/19 Eliz Bingham MD [address] [place] [address] General Surgery 07/04/22 Ney Hart E [place] [address] [address] Gastroenterology 07/04/22 Wind Development Director Relationship Specialty Start Date End Date Jacinta Rivas MD [address] [place] [address] PCP - General Internal Medicine 02/03/19 Dena Lechuga, FE Specialty Production Line Welder Oncology 04/24/17 Jesus Carter MD, MD [address] [place], [place] 561781 Physician Radiation Oncology 04/24/17 Taz Howard MD [address] [address] Home Care Provider Orthopedics 03/20/19 Taz Howard MD [address] [address] Referring Orthopedics 03/20/19 Lizeth Acosta, PT [address] [place] [address] Media Reporter Acute Care 03/21/19 Eliz Bingham MD 9500 [facility] [address] [place] [address] [id number] General Surgery 07/04/22 Ney Hart 128 [facility] 206 [place] [address] Gastroenterology 07/04/22 Wind Development Director Relationship Specialty Start Date End Date Jacinta Rivas MD [address] [place] [address] PCP - General Internal Medicine 02/03/19 Dena Lechuga, RN Specialty Production Line Welder Oncology 04/24/17 Jesus Carter MD, [address] [place] [address] Physician Radiation Oncology 04/24/17 Taz Howard MD [address] [address] Home Care Provider Orthopedics 03/20/19 Taz Howard MD [address] [address] Referring Orthopedics 03/20/19 Lizeth Acosta, PT [address] [place] [address] Media Reporter Acute Care 03/21/19 Eliz Bingham MD [address] [place] [address] General Surgery 07/04/22 Ney Hart E [facility] [facility] 206 [place] [address] Gastroenterology 07/04/22 Wind Development Director Relationship Specialty Start Date End Date Jacinta Rivas MD [address] [place] [address] PCP - General Internal Medicine 02/03/19 Dena Lechuga RN Specialty Production Line Welder Oncology 04/24/17 Jesus Carter MD, 721 E [facility] [place] [address] Physician Radiation Oncology 04/24/17 Taz Howard MD [address] [address] Home Care Provider Orthopedics 03/20/19 Taz Howard MD [address] [address] Referring Orthopedics 03/20/19 Lizeth Acosta, PT [address] [place] [address] Media Reporter Acute Care 03/21/19 Eliz Bingham MD [address] [place] [address] General Surgery 07/04/22 Ney Hart E PATY [facility] 206 [place] [address] Gastroenterology 07/04/22 Wind Development Director Relationship Specialty Start Date End Date Jacinta Rivas MD [address] [place], [place] 825441 PCP - General Internal Medicine 02/03/19 Dena Lechuga, RN Specialty Production Line Welder Oncology 04/24/17 Jesus Carter MD, MD 721 E [facility] [place], [place] 964031 Physician Radiation Oncology 04/24/17 Taz Howard MD [address] [facility] [address] [place] [address] Home Care Provider Orthopedics 03/20/19 Taz Howard MD [address] [address] Referring Orthopedics 03/20/19 Lizeth Acosta, PT [address] [place] [address] Media Reporter Acute Care 03/21/19 Eliz Bingham MD [address] [place] [address] General Surgery 07/04/22 Ney Hart [address] [address] Gastroenterology 07/04/22 Wind Development Director Relationship Specialty Start Date End Date Jacinta Rivas MD [address] [place] [address] PCP - General Internal Medicine 02/03/19 Dena Lechuga, RN Specialty Production Line Welder Oncology 04/24/17 Jesus Carter MD, MD 721 E [facility] [place] [address] Physician Radiation Oncology 04/24/17 Taz Howard MD [address] [address] Home Care Provider Orthopedics 03/20/19 Taz Howard MD [address] [address] Referring Orthopedics 03/20/19 Lizeth Acosta, PT [address] [place] [address] Media Reporter Acute Care 03/21/19 Eliz Bingham MD 2636 [facility] [address] [place] [address] [id number] General Surgery 07/04/22 Ney Hart 128 [facility] SUGAR [address] [place] [address] Gastroenterology 07/04/22 Wind Development Director Relationship Specialty Start Date End Date Jacinta Rivas MD [address] [place] [address] PCP - General Internal Medicine 02/03/19 Dena Lechuga, RN Specialty Production Line Welder Oncology 04/24/17 Jesus Carter MD, MD [address]21 [place] [address] Physician Radiation Oncology 04/24/17 Taz Howard MD [address] [address] Home Care Provider Orthopedics 03/20/19 Taz Howard MD [address] [address] Referring Orthopedics 03/20/19 Lizeth Acosta, PT [address] [place] [address] Media Reporter Acute Care 03/21/19 Eliz Bingham MD [address] [place] [address] General Surgery 07/04/22 Ney Hart 128 E [facility] 206 [place] [address] Gastroenterology 07/04/22 Wind Development Director Relationship Specialty Start Date End Date Jacinta Rivas MD [address] [place] [address] PCP - General Internal Medicine 02/03/19 Dena Lechuga, RN Specialty Production Line Welder Oncology 04/24/17 Jesus Carter MD, [address] [place], [place] 262061 Physician Radiation Oncology 04/24/17 Taz Howard MD [address] [address] Home Care Provider Orthopedics 03/20/19 Taz Howard MD [address] [address] Referring Orthopedics 03/20/19 Lizeth Acosta, PT [address] [place] [address] Media Reporter Acute Care 03/21/19 Eliz Bingham MD [address] [place] [address] General Surgery 07/04/22 Ney Hart 128 E [facility] 206 [place] [address] Gastroenterology 07/04/22 Wind Development Director Relationship Specialty Start Date End Date Jacinta Rivas MD [address] [place] [address] PCP - General Internal Medicine 02/03/19 Dena Lechuga, RN Specialty Production Line Welder Oncology 04/24/17 Jesus Carter MD, MD [address] [place] [address] Physician Radiation Oncology 04/24/17 Taz Howard MD [address] [facility] [address] [place] [address] Home Care Provider Orthopedics 03/20/19 Taz Howard MD [address] [facility] [address] [place] [address] Referring Orthopedics 03/20/19 Lizeth Acosta, PT [address] [place] [address] Media Reporter Acute Care 03/21/19 Eliz Bingham MD [address] [place] [address] General Surgery 07/04/22 Ney Hart [address] [address] Gastroenterology 07/04/22 Wind Development Director Relationship Specialty Start Date End Date Jacinta Rivas MD [address] [place] [address] PCP - General Internal Medicine 02/03/19 Dena Lechuga, RN Specialty Production Line Welder Oncology 04/24/17 Jesus Carter MD, [address] [place] [address] Physician Radiation Oncology 04/24/17 Taz Howard MD [address] [address] Home Care Provider Orthopedics 03/20/19 Taz Howard MD [address] [address] Referring Orthopedics 03/20/19 Lizeth Acosta, PT [address] [place] [address] Media Reporter Acute Care 03/21/19 Eliz Bingham MD [address] [place] [address]19 General Surgery 07/04/22 Ney Hart [address] [address] Gastroenterology 07/04/22 Wind Development Director Relationship Specialty Start Date End Date Jacinta Rivas MD [address] [place] [address] PCP - General Internal Medicine 02/03/19 Dena Lechuga, RN Specialty Production Line Welder Oncology 04/24/17 Jesus Carter MD, [address] [place] [address] Physician Radiation Oncology 04/24/17 Taz Howard MD [address] [address] Home Care Provider Orthopedics 03/20/19 Taz Howard MD [address] [address] Referring Orthopedics 03/20/19 ZacAlthea Lizeth, PT [address] [place] [address] Media Reporter Acute Care 03/21/19 Eliz Bingham MD [address] [place] [address] General Surgery 07/04/22 Ney Hart 128 E [facility] [address] [address] Gastroenterology 07/04/22 Wind Development Director Relationship Specialty Start Date End Date Jacinta Rivas MD [address] [place] [address] PCP - General Internal Medicine 02/03/19 Dena Lechuga, RN Specialty Production Line Welder Oncology 04/24/17 Jesus Carter MD, [address] [place] [address] Physician Radiation Oncology 04/24/17 Taz Howard MD [address] [address] Home Care Provider Orthopedics 03/20/19 Taz Howard MD [address] [address] Referring Orthopedics 03/20/19 Eliz Bingham MD [address] [place] [address] General Surgery 07/04/22 Ney Hart 128 E [facility] [facility] 206 [place] [address] Gastroenterology 07/04/22 Wind Development Director Relationship Specialty Start Date End Date Jacinta Rivas MD [address] [place] [address] PCP - General Internal Medicine 02/03/19 Dena Lechuga RN Specialty Production Line Welder Oncology 04/24/17 Jesus Carter MD, [address] [place] [address] Physician Radiation Oncology 04/24/17 Taz Howard MD [address] [address] Home Care Provider Orthopedics 03/20/19 Taz Howard MD [address] [address] Referring Orthopedics 03/20/19 Eliz Bingham MD [address] [address] General Surgery 07/04/22 Ney Hart 128 E [facility] 206 [place] [address] Gastroenterology 07/04/22 Wind Development Director Relationship Specialty Start Date End Date Jacinta Rivas MD [address] [place] [address] PCP - General Internal Medicine 02/03/19 Doup, Dena, RN Specialty Production Line Welder Oncology 04/24/17 Jesus Carter MD, MD [address] [place] [address] Physician Radiation Oncology 04/24/17 Taz Howard MD [address] [address] Home Care Provider Orthopedics 03/20/19 Taz Howard MD [address] [address] Referring Orthopedics 03/20/19 Eliz Bingham MD 9500 [facility] [address] [place] [address] General Surgery 07/04/22 Ney Hart 128 E [place] TONI [address] [address] Gastroenterology 07/04/22 Wind Development Director Relationship Specialty Start Date End Date Jacinta Rivas MD [address] [place] [address] PCP - General Internal Medicine 02/03/19 Dena Lechuga RN Specialty Production Line Welder Oncology 04/24/17 Jesus Carter MD, MD [address] [place] [place] [address] Physician Radiation Oncology 04/24/17 Taz Howard MD [address] [address] Home Care Provider Orthopedics 03/20/19 Taz Howard MD [address] [address] Referring Orthopedics 03/20/19 Eliz Bingham MD [address] [place] [address] General Surgery 07/04/22 Ney Hart 128 E [facility] [facility] 206 [place] [address] Gastroenterology 07/04/22 Wind Development Director Relationship Specialty Start Date End Date Jacinta Rivas MD [address] [place] [address] PCP - General Internal Medicine 02/03/19 Dena Lechuga RN Specialty Production Line Welder Oncology 04/24/17 Jesus Carter MD, [address] [place] [address] Physician Radiation Oncology 04/24/17 Taz Howard MD [address] [address] Home Care Provider Orthopedics 03/20/19 Taz Howard MD [address] [address] Referring Orthopedics 03/20/19 Eliz Bingham MD [address] [place] [address] General Surgery 07/04/22 Ney Hart 128 E S[facility] [facility] 206 [place] [address] Gastroenterology 07/04/22 Wind Development Director Relationship Specialty Start Date End Date Jacinta Rivas MD [address] [place], [place] 847561 PCP - General Internal Medicine 02/03/19 Dena Lechuga RN Specialty Production Line Welder Oncology 04/24/17 Jesus Carter MD, MD 721 E [facility] [place] [address] Physician Radiation Oncology 04/24/17 Taz Howard MD [address] [address] Home Care Provider Orthopedics 03/20/19 Taz Howard MD [address] [address] Referring Orthopedics 03/20/19 Eliz Bingham MD [address]00 [facility] [address] [place] [address] General Surgery 07/04/22 Ney Hart [address] [address] Gastroenterology 07/04/22 Wind Development Director Relationship Specialty Start Date End Date Jacinta Rivas MD [address] [place], [place] 990451 PCP - General Internal Medicine 02/03/19 Dena Lechuga, RN Specialty Production Line Welder Oncology 04/24/17 Jesus Carter MD, 721 E [facility] [place], [place] 97[address]91 Physician Radiation Oncology 04/24/17 Taz Howard MD [address] [address] Home Care Provider Orthopedics 03/20/19 Taz Howard MD [address] [address] Referring Orthopedics 03/20/19 Eliz Bingham MD [address] [address] General Surgery 07/04/22 Ney Hart 128 E [facility] [address] [address] Gastroenterology 07/04/22 Wind Development Director Relationship Specialty Start Date End Date Jacinta Rivas MD [address] [place] [address] PCP - General Internal Medicine 02/03/19 Dena Lechuga, RN Specialty Production Line Welder Oncology 04/24/17 Jesus Carter MD, 721 E [facility] [place] [address] Physician Radiation Oncology 04/24/17 Taz Howard MD [address] [address] Home Care Provider Orthopedics 03/20/19 Taz Howard MD [address] [address] Referring Orthopedics 03/20/19 Eliz Bingham MD [address] [place] [address] General Surgery 07/04/22 Ney Hart 128 E [place] [address] [place] [address] Gastroenterology 07/04/22 Wind Development Director Relationship Specialty Start Date End Date Jacinta Rivas MD [address] [place] [address] PCP - General Internal Medicine 02/03/19 Dena Lechuga RN Specialty Production Line Welder Oncology 04/24/17 Jesus Carter MD, [address] [place] [address] Physician Radiation Oncology 04/24/17 Taz Howard MD [address] [address] Home Care Provider Orthopedics 03/20/19 Taz Howard MD [address] [address] Referring Orthopedics 03/20/19 Eliz Bingham MD [address] [place] [address] General Surgery 07/04/22 Ney Hart 128 E [facility] [facility] 206 [place] [address] Gastroenterology 07/04/22 Wind Development Director Relationship Specialty Start Date End Date Jacinta Rivas MD [address] [place] [address] PCP - General Internal Medicine 02/03/19 Dena Lechuga RN Specialty Production Line Welder Oncology 04/24/17 Jesus Carter MD, MD [address] [place] [address] Physician Radiation Oncology 04/24/17 Taz Howard MD [address] [address] Home Care Provider Orthopedics 03/20/19 Taz Howard MD [address] [address] Referring Orthopedics 03/20/19 Eliz Bingham MD [address] [place] [address] General Surgery 07/04/22 Ney Hart 128 E [place] [address] [address] Gastroenterology 07/04/22 Wind Development Director Relationship Specialty Start Date End Date Jacinta Rivas MD [address] [place] [address] PCP - General Internal Medicine 02/03/19 Dena Lechuga, FE Specialty Production Line Welder Oncology 04/24/17 Jesus Carter MD, MD [address] [place] [address] Physician Radiation Oncology 04/24/17 Taz Howard MD [address] [address] Home Care Provider Orthopedics 03/20/19 Taz Howard MD [address] [address] Referring Orthopedics 03/20/19 Eliz Bingham MD [address] [place] [address] General Surgery 07/04/22 Ney Hart [address] [address] Gastroenterology 07/04/22 Wind Development Director Relationship Specialty Start Date End Date Jacinta Rivas MD [address] [place] [address] PCP - General Internal Medicine 02/03/19 Dena Lechuga, RN Specialty Production Line Welder Oncology 04/24/17 Jesus Carter MD, MD [address] [place] [address] Physician Radiation Oncology 04/24/17 Taz Howard MD [address] [address] Home Care Provider Orthopedics 03/20/19 Taz Howard MD [address] [address] Referring Orthopedics 03/20/19 Eliz Bingham MD [address] [place] [address] General Surgery 07/04/22 Ney Hart MD [address] [place] [address] Gastroenterology 07/04/22 Mino Rosales LISW [address] [place] [address] Garbage Collector Hematology/Oncology 01/08/23 Wind Development Director Relationship Specialty Start Date End Date Jacinta Rivas MD 1740 [facility] [place] [address] PCP - General Internal Medicine 02/03/19 Dena Lechuga RN Specialty Production Line Welder Oncology 04/24/17 Jesus Carter MD, [address] [place] [address] Physician Radiation Oncology 04/24/17 Taz Howard MD [address] [address] Home Care Provider Orthopedics 03/20/19 Taz Howard MD [address] [address] Referring Orthopedics 03/20/19 Eliz Bingham MD 9500 [facility] [address] [place] [address] General Surgery 07/04/22 Ney Hart MD [address] [place] [address] Gastroenterology 07/04/22 Mino Rosales LISW [address] [place] [address] Garbage Collector Hematology/Oncology 01/08/23 Wind Development Director Relationship Specialty Start Date End Date Jacinta Rivas MD [address] [place] [address] PCP - General Internal Medicine 02/03/19 Dena Lechuga, RN Specialty Production Line Welder Oncology 04/24/17 Jesus Carter MD, [address] [place], [place] [address] Physician Radiation Oncology 04/24/17 Taz Howard MD [address] [facility] [address] [place] [address] Home Care Provider Orthopedics 03/20/19 Taz Howard MD [address] [facility] [address] [place] [address] Referring Orthopedics 03/20/19 Eliz Bingham MD [address] [place] [address] General Surgery 07/04/22 Ney Hart MD [address] [address] Gastroenterology 07/04/22 Mino Rosales LISW [address] [place] [address] Garbage Collector Hematology/Oncology 01/08/23 Wind Development Director Relationship Specialty Start Date End Date Jacinta Rivas MD [address] [place], [place] [address] PCP - General Internal Medicine 02/03/19 Dena Lechuga RN Specialty Production Line Welder Oncology 04/24/17 Jesus Carter MD, [address] [place] [address] Physician Radiation Oncology 04/24/17 Taz Howard MD [address] [address] Home Care Provider Orthopedics 03/20/19 Taz Howard MD [address] [address] Referring Orthopedics 03/20/19 Eliz Bingham MD [address] [place] [address] General Surgery 07/04/22 Ney Hart MD [address] [facility] [address] [address] Gastroenterology 07/04/22 Mino Rosales LISW [address] [place] [address] Garbage Collector Hematology/Oncology 01/08/23 Wind Development Director Relationship Specialty Start Date End Date Jacinta Rivas MD [address] [place] [address] PCP - General Internal Medicine 02/03/19 Dena Lechuga, FE Specialty Production Line Welder Oncology 04/24/17 Jesus Carter MD, [address] [facility] [place] [address] Physician Radiation Oncology 04/24/17 Taz Howard MD [address] [address] Home Care Provider Orthopedics 03/20/19 Taz Howard MD [address] [address] Referring Orthopedics 03/20/19 Eliz Bingham MD [address] [place] [address] General Surgery 07/04/22 Ney Hart MD [address] [facility] 206 [place] [address] Gastroenterology 07/04/22 Mino Rosales LISW [address] [place] [address] Garbage Collector Hematology/Oncology 01/08/23 Wind Development Director Relationship Specialty Start Date End Date Jacinta Rivas MD [address] [place] [address] PCP - General Internal Medicine 02/03/19 Dena Lechuga, RN Specialty Production Line Welder Oncology 04/24/17 Jesus Carter MD, [address] [facility] [place] [address] Physician Radiation Oncology 04/24/17 Taz Howard MD [address] [address] Home Care Provider Orthopedics 03/20/19 Taz Howard MD [address] [address] Referring Orthopedics 03/20/19 Eliz Bingham MD [address] [place] [address] General Surgery 07/04/22 Ney Hart MD [address] [facility] 206 [place] [address] Gastroenterology 07/04/22 Mino Rosales LISW 721 [facility] [place] [address] Garbage Collector Hematology/Oncology 01/08/23 Wind Development Director Relationship Specialty Start Date End Date Jacinta Rivas MD [address]40 [facility] [place] [address] PCP - General Internal Medicine 02/03/19 Dena Lechuga, RN Specialty Production Line Welder Oncology 04/24/17 Jesus Carter MD, [address] [place] [address] Physician Radiation Oncology 04/24/17 Taz Howard MD [address] [address] Home Care Provider Orthopedics 03/20/19 Taz Howard MD [address] [address] Referring Orthopedics 03/20/19 Eliz Bingham MD [address] [facility] [address] [place] [address] General Surgery 07/04/22 Ney Hart MD [address] [facility] 206 [place] [address] Gastroenterology 07/04/22 Mino Rosales LISW 721 [facility] [place] [address] Garbage Collector Hematology/Oncology 01/08/23 Wind Development Director Relationship Specialty Start Date End Date Jacinta Rivas MD [address] [place] [address] PCP - General Internal Medicine 02/03/19 Dena Lechuga, RN Specialty Production Line Welder Oncology 04/24/17 Jesus Carter MD, [address] [place] [address] Physician Radiation Oncology 04/24/17 Taz Howard MD [address] [facility] [address] [place] [address] Home Care Provider Orthopedics 03/20/19 Taz Howard MD [address] [facility] [address] [place] [address] Referring Orthopedics 03/20/19 Eliz Bingham MD [address] [place] [address] General Surgery 07/04/22 Ney Hart MD [address] [address] Gastroenterology 07/04/22 Mino Rosales LISW [address] [place] [address] Garbage Collector Hematology/Oncology 01/08/23 Wind Development Director Relationship Specialty Start Date End Date Jacinta Rivas MD [address] [place], [place] 68[address] PCP - General Internal Medicine 02/03/19 Dena Lechuga, RN Specialty Production Line Welder Oncology 04/24/17 Jesus Carter MD, [address] [place] [address] Physician Radiation Oncology 04/24/17 Taz Howard MD [address] [address] Home Care Provider Orthopedics 03/20/19 Taz Howard MD [address] [address] Referring Orthopedics 03/20/19 Eliz Bingham MD [address] [place] [address] General Surgery 07/04/22 Ney Hart MD [address] [address] Gastroenterology 07/04/22 Mino Rosales LISW [address] [place] [address] Garbage Collector Hematology/Oncology 01/08/23 Wind Development Director Relationship Specialty Start Date End Date Jacinta Rivas MD [address] [place] [address] PCP - General Internal Medicine 02/03/19 Dena Lechuga, RN Specialty Production Line Welder Oncology 04/24/17 Jesus Carter MD, MD [address] [place] [address] Physician Radiation Oncology 04/24/17 Taz Howard MD [address] [address] Home Care Provider Orthopedics 03/20/19 Taz Howard MD [address] [address] Referring Orthopedics 03/20/19 Eliz Bingham MD [address] [place] [address] General Surgery 07/04/22 Ney Hart MD [address] [address] Gastroenterology 07/04/22 Mino Rosales LISW [address] [place] [address] Garbage Collector Hematology/Oncology 01/08/23 Wind Development Director Relationship Specialty Start Date End Date Jacinta Rivas MD [address] [place] [address] PCP - General Internal Medicine 02/03/19 Dena Lechuga RN Specialty Production Line Welder Oncology 04/24/17 Jesus Carter MD, [address] [facility] [place] [address] Physician Radiation Oncology 04/24/17 Taz Howard MD [address] [address] Home Care Provider Orthopedics 03/20/19 Taz Howard MD [address] [address] Referring Orthopedics 03/20/19 Eliz Bingham MD [address] [place] [address] General Surgery 07/04/22 Ney Hart MD [address] [facility] 206 [place] [address] Gastroenterology 07/04/22 Mino Rosales LISW 721 [facility] [place] [address] Garbage Collector Hematology/Oncology 01/08/23 Wind Development Director Relationship Specialty Start Date End Date Jacinta Rivas MD [address]40 [facility] [place] [address] PCP - General Internal Medicine 02/03/19 Dena Lechuga RN Specialty Production Line Welder Oncology 04/24/17 Jesus Carter MD, [address] [place] [address] Physician Radiation Oncology 04/24/17 Taz Howard MD [address] [address] Home Care Provider Orthopedics 03/20/19 Taz Howard MD [address] [address] Referring Orthopedics 03/20/19 Eliz Bingham MD [address] [address] General Surgery 07/04/22 Ney Hart MD [address] [facility] 206 [place] [address] Gastroenterology 07/04/22 Mino Rosales LISW 721 [facility] [place] [address] Garbage Collector Hematology/Oncology 01/08/23 Wind Development Director Relationship Specialty Start Date End Date Jacinta Rivas MD [address] [place] [address] PCP - General Internal Medicine 02/03/19 Dena Lechuga, RN Specialty Production Line Welder Oncology 04/24/17 Jesus Carter MD, MD [address] [facility] [place] [address] Physician Radiation Oncology 04/24/17 Taz Howard MD [address] [facility] [address] [place] [address] Home Care Provider Orthopedics 03/20/19 Taz Howard MD [address] [facility] [address] [place] [address] Referring Orthopedics 03/20/19 Eliz Bingham MD [address] [place] [address] General Surgery 07/04/22 Ney Hart MD [address] [address] Gastroenterology 07/04/22 Mino Rosales LISW [address] [place] [address] Garbage Collector Hematology/Oncology 01/08/23 Wind Development Director Relationship Specialty Start Date End Date Jacinta Rivas MD [address] [place] [address] PCP - General Internal Medicine 02/03/19 Dena Lechuga RN Specialty Production Line Welder Oncology 04/24/17 Jesus Carter MD [address] [place] [place] [address] Physician Radiation Oncology 04/24/17 Taz Howard MD [address] [address] Home Care Provider Orthopedics 03/20/19 Taz Howard MD [address] [address] Referring Orthopedics 03/20/19 Eliz Bingham MD [address] [place] [address] General Surgery 07/04/22 Ney Hart MD [address] [address] Gastroenterology 07/04/22 Mino Rosales LISW [address] [place] [address] Garbage Collector Hematology/Oncology 01/08/23 Wind Development Director Relationship Specialty Start Date End Date Jacinta Rivas MD [address] [place] [address] PCP - General Internal Medicine 02/03/19 Dena Lechuga, RN Specialty Production Line Welder Oncology 04/24/17 Jesus Carter MD [address] [place] [address] Physician Radiation Oncology 04/24/17 Taz Howard MD [address] [address] Home Care Provider Orthopedics 03/20/19 Taz Howard MD [address] [address] Referring Orthopedics 03/20/19 Eliz Bingham MD [address] [place] [address] General Surgery 07/04/22 Ney Hart MD [address] [facility] 206 [place] [address] Gastroenterology 07/04/22 Mino Rosales LISW [address] [place] [address] Garbage Collector Hematology/Oncology 01/08/23 Wind Development Director Relationship Specialty Start Date End Date Jacinta Rivas MD [address] [place] [address] PCP - General Internal Medicine 02/03/19 Dena Lechuga RN Specialty Production Line Welder Oncology 04/24/17 Jesus Carter MD [address] [place] [address] Physician Radiation Oncology 04/24/17 Taz Howard MD [address] [address] Home Care Provider Orthopedics 03/20/19 Taz Howard MD [address] [address] Referring Orthopedics 03/20/19 Eliz Bingham MD [address] [place] [address] General Surgery 07/04/22 Ney Hart MD [address] [facility] [facility] 206 [place] [address] Gastroenterology 07/04/22 Mino Rosales LISW 721 [facility] [place] [address] Garbage Collector Hematology/Oncology 01/08/23 Wind Development Director Relationship Specialty Start Date End Date Jacinta Rivas MD [address]40 [facility] [place] [address] PCP - General Internal Medicine 02/03/19 Dena Lechuga RN Specialty Production Line Welder Oncology 04/24/17 Jesus Carter MD [address] [place] [address] Physician Radiation Oncology 04/24/17 Taz Howard MD [address] [address] Home Care Provider Orthopedics 03/20/19 Taz Howard MD [address] [address] Referring Orthopedics 03/20/19 Eliz Bingham MD [address] [place] [address] General Surgery 07/04/22 Ney Hart MD [address] [place] [address] Gastroenterology 07/04/22 Mino Rosales LISW 721 [facility] [place] [address] Garbage Collector Hematology/Oncology 01/08/23 Wind Development Director Relationship Specialty Start Date End Date Jacinta Rivas MD [address] [facility] [place] [address] PCP - General Internal Medicine 02/03/19 Dena Lechuga, RN Specialty Production Line Welder Oncology 04/24/17 Jesus Carter MD [address] [place] [place] [address] Physician Radiation Oncology 04/24/17 Taz Howard MD [address] [address] Home Care Provider Orthopedics 03/20/19 Taz Howard MD [address] [address] Referring Orthopedics 03/20/19 Eliz Bingham MD [address] [place] [address] General Surgery 07/04/22 Ney Hart MD [address] [address] Gastroenterology 07/04/22 Mino Rosales LISW [address] [place] [address] Garbage Collector Hematology/Oncology 01/08/23 Wind Development Director Relationship Specialty Start Date End Date Jacinta Rivas MD [address] [place] [address] PCP - General Internal Medicine 02/03/19 Dena Lechuga RN Specialty Production Line Welder Oncology 04/24/17 Jesus Carter MD [address] [place] [address] Physician Radiation Oncology 04/24/17 Taz Howard MD [address] [address] Home Care Provider Orthopedics 03/20/19 Taz Howard MD [address] [address] Referring Orthopedics 03/20/19 Eliz Bingham MD [address] [address] General Surgery 07/04/22 Ney Hart MD [address] [facility] [address] [address] Gastroenterology 07/04/22 Mino Rosales LISW [address] [place] [address] Garbage Collector Hematology/Oncology 01/08/23 Wind Development Director Relationship Specialty Start Date End Date Jacinta Rivas MD [address] [place] [address] PCP - General Internal Medicine 02/03/19 Dena Lechuga, RN Specialty Production Line Welder Oncology 04/24/17 Jesus Carter MD [address] [facility] [place] [address] Physician Radiation Oncology 04/24/17 Taz Howard MD [address] [address] Home Care Provider Orthopedics 03/20/19 Taz Howard MD [address] [address] Referring Orthopedics 03/20/19 Eliz Bingham MD [address] [address] General Surgery 07/04/22 Ney Hart MD [address] [facility] [address] [place] [address] Gastroenterology 07/04/22 Bobby MinoBESSY escamilla 721 [facility] [place] [address] Garbage Collector Hematology/Oncology 01/08/23 Team Status: Active Member Role Status Dates Dr. Jacinta Rivas MD Family Provider Active Dr. Jacinta Rivas MD Primary Care Provider Active Team Status: Inactive Member Role Status Dates Dr. Jacinta Rivas MD Primary Care Provider Active Dr. Jaquan Nelson DO Emergency Provider Active Wind Development Director Relationship Specialty Start Date End Date Jacinta Rivas MD [address] [facility] [place] [address] PCP - General Internal Medicine 02/03/19 Dena Lechuga, FE Specialty Production Line Welder Oncology 04/24/17 Jesus Carter MD [address] [place] [address] Physician Radiation Oncology 04/24/17 Taz Howard MD [address] [address] Home Care Provider Orthopedics 03/20/19 Taz Howard MD [address] [address] Referring Orthopedics 03/20/19 Eliz Bingham MD [address] [address] General Surgery 07/04/22 Ney Hart MD [address] [facility] [facility] 206 [place] [address] Gastroenterology 07/04/22 Mino Rosales LISW [address] [place] [address] Garbage Collector Hematology/Oncology 01/08/23 Wind Development Director Relationship Specialty Start Date End Date Jacinta Rivas MD [address] [place] [address] PCP - General Internal Medicine 02/03/19 Dena Lechuga RN Specialty Production Line Welder Oncology 04/24/17 Jesus Carter MD [address] [facility] [address] Physician Radiation Oncology 04/24/17 Taz Howard MD [address] [address] Home Care Provider Orthopedics 03/20/19 Taz Howard MD [address] [address] Referring Orthopedics 03/20/19 Eliz Bingham MD [address] [address] General Surgery 07/04/22 Ney Hart MD [address] [facility] 206 [place] [address] Gastroenterology 07/04/22 Mino Rosales LISW 721 [facility] [place] [address] Garbage Collector Hematology/Oncology 01/08/23 Wind Development Director Relationship Specialty Start Date End Date Jacinta Rivas MD [address] [facility] [place] [address] PCP - General Internal Medicine 02/03/19 Dena Lechuga, RN Specialty Production Line Welder Oncology 04/24/17 Jesus Carter MD [address] [place] [address] Physician Radiation Oncology 04/24/17 Taz Howard MD [address] [address] Home Care Provider Orthopedics 03/20/19 Taz Howard MD [address] [address] Referring Orthopedics 03/20/19 Eliz Bingham MD [address] [address] General Surgery 07/04/22 Ney Hart MD [address] [place] [address] Gastroenterology 07/04/22 Mino Rosales LISW 721 [facility] [place] [address] Garbage Collector Hematology/Oncology 01/08/23 Wind Development Director Relationship Specialty Start Date End Date Jacinta Rivas MD [address] [facility] [place] [address] PCP - General Internal Medicine 02/03/19 Dena Lechuga RN Specialty Production Line Welder Oncology 04/24/17 Jesus Carter MD [address] [facility] [place] [address] Physician Radiation Oncology 04/24/17 Taz Howard MD [address] [address] Home Care Provider Orthopedics 03/20/19 Taz Howard MD [address] [address] Referring Orthopedics 03/20/19 Eliz Bingham MD [address] [address] General Surgery 07/04/22 Ney Hart MD [address] [address] Gastroenterology 07/04/22 Mino Rosales LISW [address] [place] [address] Garbage Collector Hematology/Oncology 01/08/23 Wind Development Director Relationship Specialty Start Date End Date Jacinta Rivas MD [address] [place] [address] PCP - General Internal Medicine 02/03/19 Dena Lechuga RN Specialty Production Line Welder Oncology 04/24/17 Jesus Carter MD [address] [place] [address] Physician Radiation Oncology 04/24/17 Taz Howard MD [address] [address] Home Care Provider Orthopedics 03/20/19 Taz Howard MD [address] [address] Referring Orthopedics 03/20/19 Eliz Bingham MD [address] [address] General Surgery 07/04/22 Ney Hart MD [address] [address] Gastroenterology 07/04/22 Mino Rosales LISW [address] [place] [address] Garbage Collector Hematology/Oncology 01/08/23 Tatianna Corok, [facility] 17[address] [place] [address] Pharmacist Pharmacy 07/18/23 Wind Development Director Relationship Specialty Start Date End Date Jacinta Rivas MD [address] [place] [address] PCP - General Internal Medicine 02/03/19 Dena Lechuga, RN Specialty Production Line Welder Oncology 04/24/17 Jesus Carter MD [address] [place] [address] Physician Radiation Oncology 04/24/17 Taz Howard MD [address] [address] Home Care Provider Orthopedics 03/20/19 Taz Howard MD [address] [place] [address] Referring Orthopedics 03/20/19 Eliz Bingham MD [address] [facility] [address] [place] [address] General Surgery 07/04/22 Ney Hart MD [address] [address] Gastroenterology 07/04/22 Mino Rosales LISW [address] [place] [address] Garbage Collector Hematology/Oncology 01/08/23 Tatianna Crook, [facility] [address] [place] [address] Pharmacist Pharmacy 07/18/23 Wind Development Director Relationship Specialty Start Date End Date Jacinta Rivas MD [address] [place] [address] PCP - General Internal Medicine 02/03/19 Dena Lechuga, RN Specialty Production Line Welder Oncology 04/24/17 Jesus Carter MD [address] [place] [address] Physician Radiation Oncology 04/24/17 Taz Howard MD [address] [address] Home Care Provider Orthopedics 03/20/19 Taz Howard MD [address] [address] Referring Orthopedics 03/20/19 Eliz Bingham MD [address] [address] General Surgery 07/04/22 Ney Hart MD [address] [address] Gastroenterology 07/04/22 Mino Rosales LISW [address] [place] [address] Garbage Collector Hematology/Oncology 01/08/23 Tatianna Crook, [facility] [address] [place] [address] Pharmacist Pharmacy 07/18/23 Wind Development Director Relationship Specialty Start Date End Date Jacinta Rivas MD [address] [place] [address] PCP - General Internal Medicine 02/03/19 Dena Lechuga, RN Specialty Production Line Welder Oncology 04/24/17 Jesus Carter MD [address] [place] [address] Physician Radiation Oncology 04/24/17 Taz Howard MD [address] [address] Home Care Provider Orthopedics 03/20/19 Taz Howard MD [address] [address] Referring Orthopedics 03/20/19 Eliz Bingham MD [address] [address] General Surgery 07/04/22 Ney Hart MD [address] [facility] 206 [place] [address] Gastroenterology 07/04/22 Mino Rosales LISW 721 [facility] [place] [address] Garbage Collector Hematology/Oncology 01/08/23 Tatianna Crook, [facility] 1740 [facility] [place] [address] Pharmacist Pharmacy 07/18/23 Wind Development Director Relationship Specialty Start Date End Date Jacinta Rivas MD [address] [facility] [place] [address] PCP - General Internal Medicine 02/03/19 Dena Lechuga RN Specialty Production Line Welder Oncology 04/24/17 Jesus Carter MD [address] [place] [address] Physician Radiation Oncology 04/24/17 Taz Howard MD [address] [address] Home Care Provider Orthopedics 03/20/19 Taz Hoawrd MD [address] [address] Referring Orthopedics 03/20/19 Eliz Bingham MD [address] [address] General Surgery 07/04/22 Ney Hart MD [address] E [facility] 206 [place] [address] Gastroenterology 07/04/22 Mino Rosales LISW [address] [place] [address] Garbage Collector Hematology/Oncology 01/08/23 Ambreen Tatianna, [facility] 1740 [place] [address] Pharmacist Pharmacy 07/18/23 Wind Development Director Relationship Specialty Start Date End Date Jacinta Rivas MD [address] [facility] [place] [address] PCP - General Internal Medicine 02/03/19 Dena Lechuga RN Specialty Production Line Welder Oncology 04/24/17 Jesus Carter MD [address] [place] [address] Physician Radiation Oncology 04/24/17 Taz Howard MD [address] [address] Home Care Provider Orthopedics 03/20/19 Taz Howard MD [address] [address] Referring Orthopedics 03/20/19 Eliz Bingham MD [address] [address] General Surgery 07/04/22 Ney Hart MD [address] [facility] [facility] 206 [place] [address] Gastroenterology 07/04/22 Mino Rosales LISW [address] [place] [address] Garbage Collector Hematology/Oncology 01/08/23 Tatianna Crook [facility] [address] [place] [address] Pharmacist Pharmacy 07/18/23 Wind Development Director Relationship Specialty Start Date End Date Jacinta Rivas MD [address] [place] [address] PCP - General Internal Medicine 02/03/19 Dena Lechuga, RN Specialty Production Line Welder Oncology 04/24/17 Jesus Carter MD [address] [place] [address] Physician Radiation Oncology 04/24/17 Taz Howard MD [address] [address] Home Care Provider Orthopedics 03/20/19 Taz Howard MD [address] [address] Referring Orthopedics 03/20/19 Eliz Bingham MD [address] [address] General Surgery 07/04/22 Ney Hart MD [address] [facility] [address] [address] Gastroenterology 07/04/22 Mino Rosales LISW [address] [place] [address] Garbage Collector Hematology/Oncology 01/08/23 Tatianna Crook [facility] [address] [place] [address] Pharmacist Pharmacy 07/18/23 Wind Development Director Relationship Specialty Start Date End Date Jacinta Rivas MD [address] [place] [address] PCP - General Internal Medicine 02/03/19 Dena Lechuga, RN Specialty Production Line Welder Oncology 04/24/17 Jesus Carter MD [address] [place] [address] Physician Radiation Oncology 04/24/17 Taz Howard MD [address] [address] Home Care Provider Orthopedics 03/20/19 Taz Howard MD [address] [address] Referring Orthopedics 03/20/19 Eliz Bingham MD [address] [address] General Surgery 07/04/22 Ney Hart MD [address] [address] Gastroenterology 07/04/22 Mino Rosales LISW [address] [place] [address] Garbage Collector Hematology/Oncology 01/08/23 Tatianna Crook, [facility] [address] [place] [address] Pharmacist Pharmacy 07/18/23 Wind Development Director Relationship Specialty Start Date End Date Jacinta Rivas MD [address] [place] [address] PCP - General Internal Medicine 02/03/19 Dena Lechuga RN Specialty Production Line Welder Oncology 04/24/17 Jesus Carter MD [address] [place] [address] Physician Radiation Oncology 04/24/17 Taz Howard MD [address] [address] Home Care Provider Orthopedics 03/20/19 Taz Howard MD [address] [address] Referring Orthopedics 03/20/19 Eliz Bingham MD [address] [address] General Surgery 07/04/22 Ney Hart MD [address] [address] Gastroenterology 07/04/22 Mino Rosales LISW [address] [place] [address] Garbage Collector Hematology/Oncology 01/08/23 Tatianna Crook, [facility] [address] [place] [address] Pharmacist Pharmacy 07/18/23 Wind Development Director Relationship Specialty Start Date End Date Jacinta Rivas MD [address] [place] [address] PCP - General Internal Medicine 02/03/19 Dena Lechuga RN Specialty Production Line Welder Oncology 04/24/17 Jesus Carter MD [address] [facility] [place] [address] Physician Radiation Oncology 04/24/17 Taz Howard MD [address] [address] Home Care Provider Orthopedics 03/20/19 Taz Howard MD [address] [address] Referring Orthopedics 03/20/19 Eliz Bingham MD [address] [address] General Surgery 07/04/22 Ney Hart MD [address] [address] Gastroenterology 07/04/22 Mino Rosales LISW [address] [place] [address] Garbage Collector Hematology/Oncology 01/08/23 Tatianna Crook, [facility] [address] [place] [address] Pharmacist Pharmacy 07/18/23 Wind Development Director Relationship Specialty Start Date End Date Jacinta Rivas MD [address] [place] [address] PCP - General Internal Medicine 02/03/19 Dena Lechuga RN Specialty Production Line Welder Oncology 04/24/17 Jesus Carter MD [address] [place], [place] [address] Physician Radiation Oncology 04/24/17 Taz Howard MD [address] [address] Home Care Provider Orthopedics 03/20/19 Taz Howard MD [address] [address] Referring Orthopedics 03/20/19 Eliz Bingham MD [address] [address] General Surgery 07/04/22 Ney Hart MD [address] [facility] [address] [address] Gastroenterology 07/04/22 Mino Rosales LISW [address] [place] [address] Garbage Collector Hematology/Oncology 01/08/23 Wind Development Director Relationship Specialty Start Date End Date Jacinta Rivas MD [address] [place] [address] PCP - General Internal Medicine 02/03/19 Dena Lechuga, FE Specialty Production Line Welder Oncology 04/24/17 Jesus Carter MD [address] [facility] [place] [address] Physician Radiation Oncology 04/24/17 Taz Howard MD [address] [address] Home Care Provider Orthopedics 03/20/19 Taz Howard MD [address] [place] [address] Referring Orthopedics 03/20/19 Eliz Bingham MD [address] [place] [address] General Surgery 07/04/22 Ney Hart MD [address] [address] Gastroenterology 07/04/22 Mino Rosales LISW [address] [place] [address] Garbage Collector Hematology/Oncology 01/08/23 Tatianna Crook, [facility] [address] [place] [address] Pharmacist Pharmacy 07/18/23 Wind Development Director Relationship Specialty Start Date End Date Jacinta Rivas MD [address] [place] [address] PCP - General Internal Medicine 02/03/19 Dena Lechuga, RN Specialty Production Line Welder Oncology 04/24/17 Jesus Carter MD [address] [place] [address] Physician Radiation Oncology 04/24/17 Taz Howard MD [address] [place] [address] Home Care Provider Orthopedics 03/20/19 Taz Howard MD [address] [address] Referring Orthopedics 03/20/19 Eliz Bingham MD [address] [address] General Surgery 07/04/22 Ney Hart MD [address] [address] Gastroenterology 07/04/22 Mino Rosales LISW [address] [place] [address] Garbage Collector Hematology/Oncology 01/08/23 Tatianna Crook, [facility] [address] [place] [address] Pharmacist Pharmacy 07/18/23 Wind Development Director Relationship Specialty Start Date End Date Jacinta Rivas MD [address] [place] [address] PCP - General Internal Medicine 02/03/19 Dena Lechuga, RN Specialty Production Line Welder Oncology 04/24/17 Jesus Carter MD [address] [place] [address] Physician Radiation Oncology 04/24/17 Taz Howard MD [address] [address] Home Care Provider Orthopedics 03/20/19 Taz Howard MD [address] [address] Referring Orthopedics 03/20/19 Eliz Bingham MD [address] [address] General Surgery 07/04/22 Ney Hart MD [address] [facility] [address] [place] [address] Gastroenterology 07/04/22 Bobby Mino TELEPHONE CLERK TELEGRAPH OFFICE 721 [facility] [place] [address] Garbage Collector Hematology/Oncology 01/08/23 [facility] 1740 [facility] [place] [address] Pharmacist Pharmacy 07/18/23 Wind Development Director Relationship Specialty Start Date End Date Jacinta Rivas MD [address]40 [facility] [place] [address] PCP - General Internal Medicine 02/03/19 Dena Lechuga RN Specialty Production Line Welder Oncology 04/24/17 Jesus Carter MD [address] [place] [address] Physician Radiation Oncology 04/24/17 Taz Howard MD [address] [address] Home Care Provider Orthopedics 03/20/19 Taz Howard MD [address] [address] Referring Orthopedics 03/20/19 Eliz Bingham MD [address] [address] General Surgery 07/04/22 Ney Hart MD [address] [facility] [facility] [address] [place] [address] Gastroenterology 07/04/22 Mino Rosales LISW [address] [place] [address] Garbage Collector Hematology/Oncology 01/08/23 Tatianna Crook, [facility] [address] [place] [address] Pharmacist Pharmacy 07/18/23 Wind Development Director Relationship Specialty Start Date End Date Jacinta Rivas MD [address] [place] [address] PCP - General Internal Medicine 02/03/19 Dena Lechuga, FE Specialty Production Line Welder Oncology 04/24/17 Jesus Carter MD [address] [place] [address] Physician Radiation Oncology 04/24/17 Taz Howard MD [address] [address] Home Care Provider Orthopedics 03/20/19 Taz Howard MD [address] [address] Referring Orthopedics 03/20/19 Eliz Bingham MD [address] [address] General Surgery 07/04/22 Ney Hart MD [address] [address] [address] Gastroenterology 07/04/22 Mino Rosales LISW [address] [place] [address] Garbage Collector Hematology/Oncology 01/08/23 Tatianna Crook, [facility] [address] [place] [address] Pharmacist Pharmacy 07/18/23 Wind Development Director Relationship Specialty Start Date End Date Jacinta Rivas MD [address] [place] [address] PCP - General Internal Medicine 02/03/19 Dena Lechuga, FE Specialty Production Line Welder Oncology 04/24/17 Jesus Carter MD [address] [place], [place] [address] Physician Radiation Oncology 04/24/17 Taz Howard MD [address] [address] Home Care Provider Orthopedics 03/20/19 Taz Howard MD [address] [address] Referring Orthopedics 03/20/19 Eliz Bingham MD [address] [address] General Surgery 07/04/22 Ney Hart MD [address] [facility] [address] [address] Gastroenterology 07/04/22 Mino Rosales LISW [address] [place] [address] Garbage Collector Hematology/Oncology 01/08/23 Tatianna Crook, [facility] [address] [place] [address] Pharmacist Pharmacy 07/18/23 Wind Development Director Relationship Specialty Start Date End Date Jacinta Rivas MD [address] [place] [address] PCP - General Internal Medicine 02/03/19 Dena Lechuga, RN Specialty Production Line Welder Oncology 04/24/17 Jesus Carter MD [address] [place] [address] Physician Radiation Oncology 04/24/17 Taz Howard MD [address] [address] Home Care Provider Orthopedics 03/20/19 Taz Howard MD [address] [address] Referring Orthopedics 03/20/19 Eliz Bingham MD [address] [address] General Surgery 07/04/22 Ney Hart MD [address] [address] Gastroenterology 07/04/22 Mino Rosales LISW [address] [place] [address] Garbage Collector Hematology/Oncology 01/08/23 Tatianna Crook [facility] [address] [place] [address] Pharmacist Pharmacy 07/18/23 Wind Development Director Relationship Specialty Start Date End Date Jacinta Rivas MD [address] [place] [address] PCP - General Internal Medicine 02/03/19 Dena Lechuga RN Specialty Production Line Welder Oncology 04/24/17 Jesus Carter MD [address] [place] [address] Physician Radiation Oncology 04/24/17 Taz Howard MD [address] [address] Home Care Provider Orthopedics 03/20/19 Taz Howard MD [address] [address] Referring Orthopedics 03/20/19 Eliz Bingham MD [address] [address] General Surgery 07/04/22 Ney Hart MD [address] [address] Gastroenterology 07/04/22 Mino Rosales LISW [address] [place] [address] Garbage Collector Hematology/Oncology 01/08/23 Tatianna Crook, [facility] [address] [place] [address] Pharmacist Pharmacy 07/18/23 Wind Development Director Relationship Specialty Start Date End Date Jacinta Rivas MD [address] [place] [address] PCP - General Internal Medicine 02/03/19 Dena Lechuga RN Specialty Production Line Welder Oncology 04/24/17 Jesus Carter MD [address] [facility] [place] [address] Physician Radiation Oncology 04/24/17 Taz Howard MD [address] [facility] [address] [place] [address] Home Care Provider Orthopedics 03/20/19 Taz Howard MD [address] [facility] [address] [place] [address] Referring Orthopedics 03/20/19 Eliz Bingham MD [address] [facility] [address] [place] [address] General Surgery 07/04/22 Ney Hart MD [address] [address] Gastroenterology 07/04/22 Mino Rosales LISW [address] [place] [address] Garbage Collector Hematology/Oncology 01/08/23 PaneccaTatianna poon, [facility] [address] [place] [address] Pharmacist Pharmacy 07/18/23 Wind Development Director Relationship Specialty Start Date End Date Jacinta Rivas MD [address] [place] [address] PCP - General Internal Medicine 02/03/19 Dena Lechuga, RN Specialty Production Line Welder Oncology 04/24/17 Jesus Carter MD [address] [facility] [place] [address] Physician Radiation Oncology 04/24/17 Taz Howard MD [address] [address] Home Care Provider Orthopedics 03/20/19 Taz Howard MD [address] [address] Referring Orthopedics 03/20/19 Eliz Bingham MD [address] [address] General Surgery 07/04/22 Ney Hart MD [address] [address] Gastroenterology 07/04/22 Mino Rosales LISW [address] [place] [address] Garbage Collector Hematology/Oncology 01/08/23 Tatianna Crook, [facility] [address] [place] [address] Pharmacist Pharmacy 07/18/23 Wind Development Director Relationship Specialty Start Date End Date Jacinta Rivas MD [address] [place] [address] PCP - General Internal Medicine 02/03/19 Dena Lechuga, RN Specialty Production Line Welder Oncology 04/24/17 Jesus Carter MD [address] [place] [address] Physician Radiation Oncology 04/24/17 Taz Howard MD [address] [address] Home Care Provider Orthopedics 03/20/19 Taz Howard MD [address] [address] Referring Orthopedics 03/20/19 Eliz Bingham MD [address] [address] General Surgery 07/04/22 Ney Hart MD [address] [address] Gastroenterology 07/04/22 Mino Rosales LISW [address] [place] [address] Garbage Collector Hematology/Oncology 01/08/23 Tatianna Crook, [facility] [address] [place] [address] Pharmacist Pharmacy 07/18/23 Wind Development Director Relationship Specialty Start Date End Date Jacinta Rivas MD [address] [place] [address] PCP - General Internal Medicine 02/03/19 Dena Lechuga, RN Specialty Production Line Welder Oncology 04/24/17 Jesus Carter MD [address] [place] [address] Physician Radiation Oncology 04/24/17 Taz Howard MD [address] [address] Home Care Provider Orthopedics 03/20/19 Taz Howard MD [address] [address] Referring Orthopedics 03/20/19 Eliz Bingham MD [address] [place] [address] General Surgery 07/04/22 Ney Hart MD [address] [place] [address] Gastroenterology 07/04/22 Mino Rosales LISW 721 [facility] [place] [address] Garbage Collector Hematology/Oncology 01/08/23 Tatianna Crook [facility] 1740 [facility] [place] [address] Pharmacist Pharmacy 07/18/23 Wind Development Director Relationship Specialty Start Date End Date Jacinta Rivas MD [address] [facility] [place] [address] PCP - General Internal Medicine 02/03/19 Dena Lechuga, RN Specialty Production Line Welder Oncology 04/24/17 Jesus Carter MD [address] [place] [address] Physician Radiation Oncology 04/24/17 Taz Howard MD [address] [place] [address] Home Care Provider Orthopedics 03/20/19 Taz Howard MD [address] [place] [address] Referring Orthopedics 03/20/19 Eliz Bingham MD [address] [address] General Surgery 07/04/22 Ney Hart MD [address] [address] Gastroenterology 07/04/22 Mino Rosales LISW [address] [place] [address] Garbage Collector Hematology/Oncology 01/08/23 PaneccaTatianna poon, [facility] [address] [place] [address] Pharmacist Pharmacy 07/18/23 Wind Development Director Relationship Specialty Start Date End Date Jacinta Rivas MD [address] [place] [address] PCP - General Internal Medicine 02/03/19 Dena Lechuga, RN Specialty Production Line Welder Oncology 04/24/17 Jesus Carter MD [address] [place] [address] Physician Radiation Oncology 04/24/17 Taz Howard MD [address] [address] Home Care Provider Orthopedics 03/20/19 Taz Howard MD [address] [address] Referring Orthopedics 03/20/19 Eliz Bingham MD [address] [address] General Surgery 07/04/22 Ney Hart MD [address] [facility] 206 [place] [address] Gastroenterology 07/04/22 Ejchelsea Mino, TELEPHONE CLERK TELEGRAPH OFFICE [address] [place] [address] Garbage Collector Hematology/Oncology 01/08/23 Tatianna Crook, [facility] 1740 [facility] [place] [address] Pharmacist Pharmacy 07/18/23 Wind Development Director Relationship Specialty Start Date End Date Jacinta Rivas MD [address] [place] [address] PCP - General Internal Medicine 02/03/19 Dena Lechuga RN Specialty Production Line Welder Oncology 04/24/17 Jesus Carter MD [address] [place] [address] Physician Radiation Oncology 04/24/17 Taz Howard MD [address] [address] Home Care Provider Orthopedics 03/20/19 Taz Howard MD [address] [address] Referring Orthopedics 03/20/19 Eliz Bingham MD [address] [address] General Surgery 07/04/22 Ney Hart MD [address] [facility] 206 [place] [address] Gastroenterology 07/04/22 Mino Rosales LISW [address] [place] [address] Garbage Collector Hematology/Oncology 01/08/23 [facility] 1740 [facility] [place] [address] Pharmacist Pharmacy 07/18/23 Wind Development Director Relationship Specialty Start Date End Date Jacinta Rivas MD [address] [facility] [address] PCP - General Internal Medicine 02/03/19 Dena Lechuga, FE Specialty Production Line Welder Oncology 04/24/17 Jesus Carter MD [address] [place] [address] Physician Radiation Oncology 04/24/17 Taz Howard MD [address] [address] Home Care Provider Orthopedics 03/20/19 Taz Howard MD [address] [address] Referring Orthopedics 03/20/19 Eliz Bingham MD [address] [address] General Surgery 07/04/22 Ney Hart MD [address] [address] [place] [address] Gastroenterology 07/04/22 Mino Rosales LISW [address] [place] [address] Garbage Collector Hematology/Oncology 01/08/23 Tatianna Crook, [facility] [address] [place] [address] Pharmacist Pharmacy 07/18/23 Wind Development Director Relationship Specialty Start Date End Date Jacinta Rivas MD [address] [place], [place] [address] PCP - General Internal Medicine 02/03/19 Dena Lechuga RN Specialty Production Line Welder Oncology 04/24/17 Jesus Carter MD [address] [place] [address] Physician Radiation Oncology 04/24/17 Taz Howard MD [address] [address] Home Care Provider Orthopedics 03/20/19 Taz Howard MD [address] [address] Referring Orthopedics 03/20/19 Lizeth Acosta, PT [address] [place], [place] [id number] Media Reporter Acute Care 03/21/19 11/05/22 Wind Development Director Relationship Specialty Start Date End Date Jacinta Rivas MD [address] [place] [address] PCP - General Internal Medicine 02/03/19 Dena Lechuga RN Specialty Production Line Welder Oncology 04/24/17 Jesus Carter MD [address] [place] [address] Physician Radiation Oncology 04/24/17 Taz Howard MD [address] [address] Home Care Provider Orthopedics 03/20/19 Taz Howard MD [address] [address] Referring Orthopedics 03/20/19 Eliz Bingham MD [address] [address] General Surgery 07/04/22 Ney Hart MD [address] [address] Gastroenterology 07/04/22 Mino Rosales LISW [address] [place] [address] Garbage Collector Hematology/Oncology 01/08/23 SbeccaTatianna poon, [facility] [address] [place] [address] Pharmacist Pharmacy 07/18/23 Wind Development Director Relationship Specialty Start Date End Date Jacinta Rivas MD [address] [place] [address] PCP - General Internal Medicine 02/03/19 Dena Lechuga, RN Specialty Production Line Welder Oncology 04/24/17 Jesus Carter MD [address] [place] [address] Physician Radiation Oncology 04/24/17 Taz Howard MD [address] [address] Home Care Provider Orthopedics 03/20/19 Taz Howard MD [address] [address] Referring Orthopedics 03/20/19 Eliz Bingham MD [address] [address] General Surgery 07/04/22 Ney Hart MD [address] [address] Gastroenterology 07/04/22 Mino Rosales LISW [address] [place] [address] Garbage Collector Hematology/Oncology 01/08/23 Tatianna Crook, [facility] [address] [place] [address] Pharmacist Pharmacy 07/18/23 Wind Development Director Relationship Specialty Start Date End Date Jacinta Rivas MD [address] [place] [address] PCP - General Internal Medicine 02/03/19 Dena Lechuga, RN Specialty Production Line Welder Oncology 04/24/17 Jesus Carter MD [address] [place] [address] Physician Radiation Oncology 04/24/17 Taz Howard MD [address] [address] Home Care Provider Orthopedics 03/20/19 Taz Howard MD [address] [address] Referring Orthopedics 03/20/19 Eliz Bingham MD [address] [address] General Surgery 07/04/22 Ney Hart MD [address] [address] Gastroenterology 07/04/22 Mino Rosales LISW 721 [facility] [place] [address] Garbage Collector Hematology/Oncology 01/08/23 [facility] 1740 [facility] [place] [address] Pharmacist Pharmacy 07/18/23 Wind Development Director Relationship Specialty Start Date End Date Jacinta Rivas MD [address] [facility] [place] [address] PCP - General Internal Medicine 02/03/19 Dena Lechuga, FE Specialty Production Line Welder Oncology 04/24/17 Jesus Carter MD [address] [place] [address] Physician Radiation Oncology 04/24/17 Lisa Malhotra, FE [address] [place] [place] [address] Research Nurse Hematology/Oncology 05/23/18 01/25/22 Taz Howard MD [address] [address] Home Care Provider Orthopedics 03/20/19 aTz Howard MD [address] [address] Referring Orthopedics 03/20/19 Lizeth Acosta, PT [address] [place] [address] Media Reporter Acute Care 03/21/19 11/05/22 Wind Development Director Relationship Specialty Start Date End Date Jacinta Rivas MD [address] [place] [address] PCP - General Internal Medicine 02/03/19 Dena Lechuga, FE Specialty Production Line Welder Oncology 04/24/17 Jesus Carter MD [address] [facility] [place] [address] Physician Radiation Oncology 04/24/17 Taz Howard MD [address] [address] Home Care Provider Orthopedics 03/20/19 Taz Howard MD [address] [address] Referring Orthopedics 03/20/19 Eliz Bingham MD [address] [address] General Surgery 07/04/22 Ney Hart MD [address] [place] [place] [address] [address] Gastroenterology 07/04/22 Mino Rosales LISW [address] [place] [address] Garbage Collector Hematology/Oncology 01/08/23 Tatianna Crook, [facility] [address] [place] [address] Pharmacist Pharmacy 07/18/23 Wind Development Director Relationship Specialty Start Date End Date Jacinta Rivas MD [address] [place] [address] PCP - General Internal Medicine 02/03/19 Dena Lechuga RN Specialty Production Line Welder Oncology 04/24/17 Jesus Carter MD [address] [place] [address] Physician Radiation Oncology 04/24/17 Lisa Malhotra RN [address] [place] [address] Research Nurse Hematology/Oncology 05/23/18 01/25/22 Taz Howard MD [address] [address] Home Care Provider Orthopedics 03/20/19 Taz Howard MD [address] [address] Referring Orthopedics 03/20/19 Lizeth Acosta, PT [address] [place] [address] Media Reporter Acute Care 03/21/19 11/05/22 Wind Development Director Relationship Specialty Start Date End Date Jacinta Rivas MD [address] [place] [address] PCP - General Internal Medicine 02/03/19 Dena Lechuga RN Specialty Production Line Welder Oncology 04/24/17 Jesus Carter MD [address] [place] [address] Physician Radiation Oncology 04/24/17 Taz Howard MD [address] [address] Home Care Provider Orthopedics 03/20/19 Taz Howard MD [address] [address] Referring Orthopedics 03/20/19 Eliz Bingham MD [address] [address] General Surgery 07/04/22 Ney Hart MD [address] [address] Gastroenterology 07/04/22 Mino Rosales LISW [address] [place] [address] Garbage Collector Hematology/Oncology 01/08/23 Tatianna Crook, [facility] [address] [place] [address] Pharmacist Pharmacy 07/18/23 Wind Development Director Relationship Specialty Start Date End Date Jacinta Rivas MD [address] [place] [address] PCP - General Internal Medicine 02/03/19 Dena Lechuga, RN Specialty Production Line Welder Oncology 04/24/17 Jesus Carter MD [address] [place] [address] Physician Radiation Oncology 04/24/17 Taz Howard MD [address] [address] Home Care Provider Orthopedics 03/20/19 Taz Howard MD [address] [address] Referring Orthopedics 03/20/19 Eliz Bingham MD [address] [address] General Surgery 07/04/22 Ney Hart MD [address] [address] Gastroenterology 07/04/22 Mino Rosales LISW [address] [place] [address] Garbage Collector Hematology/Oncology 01/08/23 PaneccasiTatianna slaughter, [facility] [address] [place] [address] Pharmacist Pharmacy 07/18/23 Wind Development Director Relationship Specialty Start Date End Date Jacinta Rivas MD [address] [place] [address] PCP - General Internal Medicine 02/03/19 Dena Lechuga, RN Specialty Production Line Welder Oncology 04/24/17 Jesus Carter MD [address] [place] [address] Physician Radiation Oncology 04/24/17 Taz Howard MD [address] [address] Home Care Provider Orthopedics 03/20/19 Taz Howard MD [address] [address] Referring Orthopedics 03/20/19 Eliz Bingham MD [address] [address] General Surgery 07/04/22 Ney Hart MD [address] [address] Gastroenterology 07/04/22 Mino Rosales LISW [address] [place] [address] Garbage Collector Hematology/Oncology 01/08/23 Tatianna Crook, [facility] [address] [place] [address] Pharmacist Pharmacy 07/18/23 Wind Development Director Relationship Specialty Start Date End Date Jacinta Rivas MD [address] [place] [address] PCP - General Internal Medicine 02/03/19 Dena Lechuga, RN Specialty Production Line Welder Oncology 04/24/17 Jesus Carter MD [address] [place] [address] Physician Radiation Oncology 04/24/17 Taz Howard MD [address] [address] Home Care Provider Orthopedics 03/20/19 Taz Howard MD [address] [address] Referring Orthopedics 03/20/19 Eliz Bingham MD [address] [address] General Surgery 07/04/22 Ney Hart MD [address] [place] [address] Gastroenterology 07/04/22 Mino Rosales LISW 721 [facility] [place] [address] Garbage Collector Hematology/Oncology 01/08/23 [facility] 1740 [facility] [place] [address] Pharmacist Pharmacy 07/18/23 Wind Development Director Relationship Specialty Start Date End Date Jacinta Rivas MD 1740 [facility] [place] [address] PCP - General Internal Medicine 02/03/19 Dena Lechuga, RN Specialty Production Line Welder Oncology 04/24/17 Jesus Carter MD [address] [place] [address] Physician Radiation Oncology 04/24/17 Taz Howard MD [address] [address] Home Care Provider Orthopedics 03/20/19 Taz Howard MD [address] [address] Referring Orthopedics 03/20/19 Eliz Bingham MD [address] [address] General Surgery 07/04/22 Ney Hart MD [address] [facility] 206 [place] [address] Gastroenterology 07/04/22 Mino Rosales LISW 721 [facility] [place] [address] Garbage Collector Hematology/Oncology 01/08/23 Tatianna Crook, [facility] 1740 [facility] [place] [address] Pharmacist Pharmacy 07/18/23 Wind Development Director Relationship Specialty Start Date End Date Jacinta Rivas MD [address]40 [facility] [place] [address] PCP - General Internal Medicine 02/03/19 Dena Lechuga, FE Specialty Production Line Welder Oncology 04/24/17 Jesus Carter MD [address] [place] [address] Physician Radiation Oncology 04/24/17 Taz Howard MD [address] [address] Home Care Provider Orthopedics 03/20/19 Taz Howard MD [address] [address] Referring Orthopedics 03/20/19 Eliz Bingham MD [address] [address] General Surgery 07/04/22 Ney Hart MD 128 [address] [facility] 206 [place] [address] Gastroenterology 07/04/22 Mino Rosales LISW [address] [place] [address] Garbage Collector Hematology/Oncology 01/08/23 Cl Crookietta, [facility] 1740 [place] [address] Pharmacist Pharmacy 07/18/23 Wind Development Director Relationship Specialty Start Date End Date Jacinta Rivas MD [address]40 [facility] [place] [address] PCP - General Internal Medicine 02/03/19 Dena Lechuga RN Specialty Production Line Welder Oncology 04/24/17 Jesus Carter MD [address] [place] [address] Physician Radiation Oncology 04/24/17 Taz Howard MD [address] [address] Home Care Provider Orthopedics 03/20/19 Taz Howard MD [address] [address] Referring Orthopedics 03/20/19 Eliz Bingham MD [address] [address] General Surgery 07/04/22 Ney Hart MD [address] [facility] 206 [place] [address] Gastroenterology 07/04/22 Mino Rosales LISW 721 [facility] [place] [address] Garbage Collector Hematology/Oncology 01/08/23 Tatianna Crook [facility] 1740 [facility] [place] [address] Pharmacist Pharmacy 07/18/23 Wind Development Director Relationship Specialty Start Date End Date Jacinta Rivas MD [address]40 [facility] [place] [address] PCP - General Internal Medicine 02/03/19 Dena Lechuga, FE Specialty Production Line Welder Oncology 04/24/17 Jesus Carter MD [address] [place] [address] Physician Radiation Oncology 04/24/17 Taz Howard MD [address] [address] Home Care Provider Orthopedics 03/20/19 Taz Howard MD [address] [address] Referring Orthopedics 03/20/19 Eliz Bingham MD [address] [address] General Surgery 07/04/22 Ney Hart MD [address] E [facility] [address] [address] Gastroenterology 07/04/22 Mino Rosales LISW [address] [place] [address] Garbage Collector Hematology/Oncology 01/08/23 Tatianna Crook [facility] 1740 [facility] [place] [address] Pharmacist Pharmacy 07/18/23 Wind Development Director Relationship Specialty Start Date End Date Jacinta Rivas MD 1740 [place] [address] PCP - General Internal Medicine 02/03/19 Dena Lechuga, FE Specialty Production Line Welder Oncology 04/24/17 Jesus Carter MD [address] [place] [address] Physician Radiation Oncology 04/24/17 Taz Howard MD [address] [address] Home Care Provider Orthopedics 03/20/19 Taz Howard MD [address] [address] Referring Orthopedics 03/20/19 Eliz Bingham MD [address] [address] General Surgery 07/04/22 Ney Hart MD [address] [address] Gastroenterology 07/04/22 Mino Rosales LISW [address]21 [place] [address] Garbage Collector Hematology/Oncology 01/08/23 Tatianna Crook, [facility] 1740 [place] [address] Pharmacist Pharmacy 07/18/23 Cathy Burr APRN.FORM BLOCK MAKER [address]40 [place] [address] Signs Cleaner Internal Medicine 03/16/24 Lisbet Pizano APRN.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 1740 [place], [place] 610971 Signs Cleaner Internal Medicine 03/16/24 Wind Development Director Relationship Specialty Start Date End Date Jacinta Rivas MD [address]40 [place] [address] PCP - General Internal Medicine 02/03/19 Dena Lechuga, FE Specialty Production Line Welder Oncology 04/24/17 Jesus Carter MD [address] [place] [address] Physician Radiation Oncology 04/24/17 Taz Howard MD [address] [address] Home Care Provider Orthopedics 03/20/19 Taz Howard MD [address] [address] Referring Orthopedics 03/20/19 Eliz Bingham MD [address] [address] General Surgery 07/04/22 Ney Hart MD [address] [facility] [address] [address] Gastroenterology 07/04/22 Mino Rosales LISW [address] [place] [address] Garbage Collector Hematology/Oncology 01/08/23 Tatianna Crook [facility] 1740 [facility], [place] [address] Pharmacist Pharmacy 07/18/23 Cathy Burr, FELICIA.FORM BLOCK MAKER [address] [place] [address] Signs Cleaner Internal Medicine 03/16/24 Lisbet Pizano APRN.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 [address] [place], [place] [address]761 Signs Cleaner Internal Medicine 03/16/24 Wind Development Director Relationship Specialty Start Date End Date Jacinta Rivas MD [address] [place], [place] [address]281 PCP - General Internal Medicine 02/03/19 Dena Lechuga, FE Specialty Production Line Welder Oncology 04/24/17 Jesus Carter MD [address] [place] [address] Physician Radiation Oncology 04/24/17 Taz Howard MD [address] [address] Home Care Provider Orthopedics 03/20/19 Taz Howard MD [address] [address] Referring Orthopedics 03/20/19 Eliz Bingham MD [address] [address] General Surgery 07/04/22 Ney Hart MD [address] [place] [address] [place] [address] Gastroenterology 07/04/22 Mino Rosales LISW 721 [place] [address] Garbage Collector Hematology/Oncology 01/08/23 Tatianna Crook, [facility] [address] [place] [address] Pharmacist Pharmacy 07/18/23 Cathy Burr, 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.FORM BLOCK MAKER [address] [place] [address] Signs Cleaner Internal Medicine 03/16/24 Lisbet Pizano, 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.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 [address] [place], [place] 329711 Signs Cleaner Internal Medicine 03/16/24 Wind Development Director Relationship Specialty Start Date End Date Jacinta Rivas MD [address] [place] [address] PCP - General Internal Medicine 02/03/19 Dena Lechuga, RN Specialty Production Line Welder Oncology 04/24/17 Jesus Carter MD [address] [place] [address] Physician Radiation Oncology 04/24/17 Taz Howard MD [address] [address] Home Care Provider Orthopedics 03/20/19 Taz Howard MD [address] [address] Referring Orthopedics 03/20/19 Eliz Bingham MD [address] [facility] [address] [place] [address] General Surgery 07/04/22 Ney Hart MD [address] [address] Gastroenterology 07/04/22 Mino Rosales LISW 721 [place] [address] Garbage Collector Hematology/Oncology 01/08/23 PaneccaTatianna poon, [facility] 1740 [place], [place] [address] Pharmacist Pharmacy 07/18/23 Cathy Burr 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.FORM BLOCK MAKER [address] [place], [place] [address] Signs Cleaner Internal Medicine 03/16/24 Lisbet Pizano, 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.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 [address] [place], [place] 976951 Signs Cleaner Internal Medicine 03/16/24 Wind Development Director Relationship Specialty Start Date End Date Jacinta Rivas MD [address] [place], [place] 746801 PCP - General Internal Medicine 02/03/19 Dena Lechuga, RN Specialty Production Line Welder Oncology 04/24/17 Jesus Carter MD [address] [place], [place] 416961 Physician Radiation Oncology 04/24/17 Taz Howard MD [address] [address] Home Care Provider Orthopedics 03/20/19 Taz Howard MD [address] [facility] [address] [place] [address] Referring Orthopedics 03/20/19 Eliz Bingham MD [address] [facility] [address] [place] [address] General Surgery 07/04/22 Ney Hart MD [address] [address] Gastroenterology 07/04/22 Mino Rosales LISW [address] [place] [address] Garbage Collector Hematology/Oncology 01/08/23 Tatianna Crook, [facility] [address] [place] [address] Pharmacist Pharmacy 07/18/23 Cathy Burr, 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.FORM BLOCK MAKER [address] [place] [address] Signs Cleaner Internal Medicine 03/16/24 Lisbet Pizano APRN.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 [address] [place] [address] Signs Cleaner Internal Medicine 03/16/24 Wind Development Director Relationship Specialty Start Date End Date Jacinta Rivas MD [address]40 [place] [address] PCP - General Internal Medicine 02/03/19 Dena Lechuga, RN Specialty Production Line Welder Oncology 04/24/17 Jesus Carter MD [address] [place] [address] Physician Radiation Oncology 04/24/17 Taz Howard MD [address] [facility] [address] [place] [address] Home Care Provider Orthopedics 03/20/19 Taz Howard MD [address] [facility] [address] [place] [address] Referring Orthopedics 03/20/19 Eliz Bingham MD [address] [facility] [address] [place] [address] General Surgery 07/04/22 Ney Hart MD [address] [address] Gastroenterology 07/04/22 Mino Rosales LISW [address] [place] [address] Garbage Collector Hematology/Oncology 01/08/23 Tatianna Crook [facility] [address] [place] [address] Pharmacist Pharmacy 07/18/23 Cathy Burr APRN.FORM BLOCK MAKER [address] [place] [address] Signs Cleaner Internal Medicine 03/16/24 Lisbet Pizano 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.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 [address] [place] [address] Signs Cleaner Internal Medicine 03/16/24 Wind Development Director Relationship Specialty Start Date End Date Jacinta Rivas MD [address] [place] [address] PCP - General Internal Medicine 02/03/19 Dena Lechuga, RN Specialty Production Line Welder Oncology 04/24/17 Jesus Carter MD [address] [place] [place] [address] Physician Radiation Oncology 04/24/17 Taz Howard MD [address] [address] Home Care Provider Orthopedics 03/20/19 Taz Howard MD [address] [address] Referring Orthopedics 03/20/19 Eliz Bingham MD [address] [address] General Surgery 07/04/22 Ney Hart MD [address] [place] [address] [address] Gastroenterology 07/04/22 Mino Rosales LISW [address] [place] [address] Garbage Collector Hematology/Oncology 01/08/23 Tatianna Crook [facility] [address] [place] [address] Pharmacist Pharmacy 07/18/23 Cathy Burr APRN.FORM BLOCK MAKER [address] [place] [address] Signs Cleaner Internal Medicine 03/16/24 Lisbet Pizano APRN.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 [address] [place] [address] Signs Cleaner Internal Medicine 03/16/24 Wind Development Director Relationship Specialty Start Date End Date Jacinta Rivas MD [address] [place] [address] PCP - General Internal Medicine 02/03/19 Dena Lechuga, RN Specialty Production Line Welder Oncology 04/24/17 Jesus Carter MD [address] [place] [address] Physician Radiation Oncology 04/24/17 Taz Howard MD [address] [address] Home Care Provider Orthopedics 03/20/19 Taz Howard MD [address] [address] Referring Orthopedics 03/20/19 Eliz Bingham MD [address] [address] General Surgery 07/04/22 Ney Hart MD [address] [address] Gastroenterology 07/04/22 Mino Rosales LISW [address] [place] [address] Garbage Collector Hematology/Oncology 01/08/23 Tatianna Crook [facility] [address] [place] [address] Pharmacist Pharmacy 07/18/23 Cathy Burr APRN.FORM BLOCK MAKER [address] [place], [place] 492761 Signs Cleaner Internal Medicine 03/16/24 Lisbet Pizano APRN.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 [address] [place], [place] 008181 Signs Cleaner Internal Medicine 03/16/24 Wind Development Director Relationship Specialty Start Date End Date Jacinta Rivas MD [address] [place] [address] PCP - General Internal Medicine 02/03/19 Dena Lechuga, FE Specialty Production Line Welder Oncology 04/24/17 Jesus Carter MD [address] [place] [address] Physician Radiation Oncology 04/24/17 Taz Howard MD [address] [address] Home Care Provider Orthopedics 03/20/19 Taz Howard MD [address] [address] Referring Orthopedics 03/20/19 Eliz Bingham MD [address] [address] General Surgery 07/04/22 Ney Hart MD [address] [facility] [address] [address] Gastroenterology 07/04/22 Mino Rosales LISW [address] [place] [address] Garbage Collector Hematology/Oncology 01/08/23 Tatianna Crook, [facility] [address] [place], [place] 805831 Pharmacist Pharmacy 07/18/23 aCthy Burr APRN.FORM BLOCK MAKER [address] [place] [address] Signs Cleaner Internal Medicine 03/16/24 Lisbet Pizano APRN.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 [address] [place], [place] 492871 Signs Cleaner Internal Medicine 03/16/24 Wind Development Director Relationship Specialty Start Date End Date Jacinta Rivas MD [address] [place] [address] PCP - General Internal Medicine 02/03/19 Dena Lechuga RN Specialty Production Line Welder Oncology 04/24/17 Jesus Carter MD [address] [place] [address] Physician Radiation Oncology 04/24/17 Taz Howard MD [address] [address] Home Care Provider Orthopedics 03/20/19 Taz Howard MD [address] [address] Referring Orthopedics 03/20/19 Eliz Bingham MD [address] [address] General Surgery 07/04/22 Ney Hart MD [address] [address] Gastroenterology 07/04/22 Mino Rosales LISW [address] [place] [address] Garbage Collector Hematology/Oncology 01/08/23 Tatianna Crook, [facility] [address] [place] [address] Pharmacist Pharmacy 07/18/23 Cathy Burr, FELICIA.FORM BLOCK MAKER [address] [place], [place] 139031 Signs Cleaner Internal Medicine 03/16/24 Lisbet Pizano 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.INDUCTION HEATING EQUIPMENT SETTER [address] [place], [place] 323871 Signs Cleaner Internal Medicine 03/16/24 Wind Development Director Relationship Specialty Start Date End Date Jacinta Rivas MD [address] [place] [address] PCP - General Internal Medicine 02/03/19 Dena Lechuga, FE Specialty Production Line Welder Oncology 04/24/17 Jesus Carter MD [address] [place], [place] 266461 Physician Radiation Oncology 04/24/17 Taz Howard MD [address] [address] Home Care Provider Orthopedics 03/20/19 Taz Howard MD [address] [address] Referring Orthopedics 03/20/19 Eliz Bingham MD [address] [address] General Surgery 07/04/22 Ney Hart MD [address] [facility] [address] [address] Gastroenterology 07/04/22 Mino Rosales LISW [address] [place] [address] Garbage Collector Hematology/Oncology 01/08/23 Tatianna Crook, [facility] [address] [place] [address] Pharmacist Pharmacy 07/18/23 Cathy Burr APRN.FORM BLOCK MAKER [address] [place] [address] Signs Cleaner Internal Medicine 03/16/24 Lisbet Pizano 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.INDUCTION HEATING EQUIPMENT SETTER [address] [place], [place] 146741 Signs Cleaner Internal Medicine 03/16/24 Wind Development Director Relationship Specialty Start Date End Date Jacinta Rivas MD [address] [place], [place] 988081 PCP - General Internal Medicine 02/03/19 Dena Lechuga, FE Specialty Production Line Welder Oncology 04/24/17 Jesus Carter MD [address] [facility] [place] [address] Physician Radiation Oncology 04/24/17 Taz Howard MD [address] [address] Home Care Provider Orthopedics 03/20/19 Taz Howard MD [address] [facility] [address] [place] [address] Referring Orthopedics 03/20/19 Eliz Bingham MD [address] [facility] [address] [place] [address] General Surgery 07/04/22 Ney Hart MD [address] [facility] 206 [place] [address] Gastroenterology 07/04/22 Mino Rosales LISW 721 [facility] [place] [address] Garbage Collector Hematology/Oncology 01/08/23 PaneccaTatianna poon, [facility] 1740 [facility] [place] [address] Pharmacist Pharmacy 07/18/23 Cathy Burr, 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.FORM BLOCK MAKER [address]40 [facility] [place] [address] Signs Cleaner Internal Medicine 03/16/24 Lisbet Pizano 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.INDUCTION HEATING EQUIPMENT SETTER [address] [place] [address] Signs Cleaner Internal Medicine 03/16/24 Wind Development Director Relationship Specialty Start Date End Date Jacinta Rivas MD [address] [facility] [place] [address] PCP - General Internal Medicine 02/03/19 Dena Lechuga, FE Specialty Production Line Welder Oncology 04/24/17 Jesus Carter MD [address] E [facility] [place] [address] Physician Radiation Oncology 04/24/17 Taz Howard MD [address] [facility] [address] [place] [address] Home Care Provider Orthopedics 03/20/19 Taz Howard MD [address] [facility] [address] [place] [address] Referring Orthopedics 03/20/19 Eliz Bingham MD [address] [facility] [address] [place] [address] General Surgery 07/04/22 Ney Hart MD [address] [address] Gastroenterology 07/04/22 Mino Rosales LISW [address] [place] [address] Garbage Collector Hematology/Oncology 01/08/23 SbeccaTatianna poon, [facility] [address] [place] [address] Pharmacist Pharmacy 07/18/23 Cathy Burr, 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.FORM BLOCK MAKER [address] [place] [address] Signs Cleaner Internal Medicine 03/16/24 Lisbet Pizano, 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.INDUCTION HEATING EQUIPMENT SETTER [address] [place] [address] Signs Cleaner Internal Medicine 03/16/24 Wind Development Director Relationship Specialty Start Date End Date Jacinta Rivas MD [address] [place] [address] PCP - General Internal Medicine 02/03/19 Dena Lechuga, RN Specialty Production Line Welder Oncology 04/24/17 Jesus Carter MD [address] [place] [address] Physician Radiation Oncology 04/24/17 Taz Howard MD [address] [address] Home Care Provider Orthopedics 03/20/19 Taz Howard MD [address] [address] Referring Orthopedics 03/20/19 Eliz Bingham MD [address] [address] General Surgery 07/04/22 Ney Hart MD [address] [place] [address] [address] Gastroenterology 07/04/22 Mino Rosales LISW [address] [place] [address] Garbage Collector Hematology/Oncology 01/08/23 PaneccaTatianna poon, [facility] [address] [place] [address] Pharmacist Pharmacy 07/18/23 Cathy Burr APRN.FORM BLOCK MAKER [address] [place] [address] Signs Cleaner Internal Medicine 03/16/24 Lisbet Pizano APRN.INDUCTION HEATING EQUIPMENT SETTER [address] [place] [address] Signs Cleaner Internal Medicine 03/16/24 Wind Development Director Relationship Specialty Start Date End Date Jacinta iRvas MD [address] [place] [address] PCP - General Internal Medicine 02/03/19 Dena Lechuga, RN Specialty Production Line Welder Oncology 04/24/17 Jesus Carter MD [address] [place] [address] Physician Radiation Oncology 04/24/17 Taz Howard MD [address] [facility] [address] [place] [address] Home Care Provider Orthopedics 03/20/19 Taz Howard MD [address] [facility] [address] [place] [address] Referring Orthopedics 03/20/19 Eliz Bingham MD [address] [facility] [address] [place] [address] General Surgery 07/04/22 Ney Hart MD [address] [address] Gastroenterology 07/04/22 Mino Rosales LISW [address] [place] [address] Garbage Collector Hematology/Oncology 01/08/23 PanecTatianna hankins, [facility] [address] [place], [place] 5095[address]91 Pharmacist Pharmacy 07/18/23 Cathy Burr APRN.FORM BLOCK MAKER [address] [place], [place] 261291 Signs Cleaner Internal Medicine 03/16/24 Lisbet Pizano APRN.INDUCTION HEATING EQUIPMENT SETTER [address] [place], [place] 513101 Signs Cleaner Internal Medicine 03/16/24 Wind Development Director Relationship Specialty Start Date End Date Jacinta Rivas MD [address] [place] [address] PCP - General Internal Medicine 02/03/19 Dena Lechuga, FE Specialty Production Line Welder Oncology 04/24/17 Jesus Carter MD [address] [place], [place] [address] Physician Radiation Oncology 04/24/17 Taz Howard MD [address] [address] Home Care Provider Orthopedics 03/20/19 Taz Howard MD [address] [address] Referring Orthopedics 03/20/19 Eliz Bingham MD [address] [address] General Surgery 07/04/22 Ney Hart MD [address] [address] Gastroenterology 07/04/22 Mino Rosales LISW [address] [place] [address] Garbage Collector Hematology/Oncology 01/08/23 Tatianna Crook, [facility] [address] [place], [place] 10584691 Pharmacist Pharmacy 07/18/23 Cathy Burr, 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.FORM BLOCK MAKER [address] [place], [place] 171871 Signs Cleaner Internal Medicine 03/16/24 Lisbet Pizano APRN.INDUCTION HEATING EQUIPMENT SETTER [address] [place], [place] [id number] [facility] Internal Medicine 03/16/24 Wind Development Director Relationship Specialty Start Date End Date Jacinta Rivas MD [address] [place], [place] 286[address] PCP - General Internal Medicine 02/03/19 Dena Lechuga RN Specialty Production Line Welder Oncology 04/24/17 Jesus Carter MD [address] [place] [address] Physician Radiation Oncology 04/24/17 Taz Howard MD [address] [address] Home Care Provider Orthopedics 03/20/19 Taz Howard MD [address] [address] Referring Orthopedics 03/20/19 Eliz Bingham MD [address] [address] General Surgery 07/04/22 Ney Hart MD [address] [place] [address] [address] Gastroenterology 07/04/22 Mino Rosales LISW [address] [place] [address] Garbage Collector Hematology/Oncology 01/08/23 Tatianna Crook [facility] [address] [place] [address] Pharmacist Pharmacy 07/18/23 Cathy Burr APRN.FORM BLOCK MAKER [address] [place], [place] 553171 Signs Cleaner Internal Medicine 03/16/24 Lisbet Pizano APRN.INDUCTION HEATING EQUIPMENT SETTER [address] [place], [place] [id number] Signs Cleaner Internal Medicine 03/16/24 Wind Development Director Relationship Specialty Start Date End Date Jacinta Rivas MD [address] [place] [address] PCP - General Internal Medicine 02/03/19 Dena Lechuga, FE Specialty Production Line Welder Oncology 04/24/17 Jesus Carter MD [address] [place] [address] Physician Radiation Oncology 04/24/17 Taz Howard MD [address] [address] Home Care Provider Orthopedics 03/20/19 Taz Howard MD [address] [address] Referring Orthopedics 03/20/19 Eliz Bingham MD [address] [address] General Surgery 07/04/22 Ney Hart MD [address] [address] Gastroenterology 07/04/22 Mino Rosales LISW [address] [place] [address] Garbage Collector Hematology/Oncology 01/08/23 Tatianna Crook, [facility] [address] [place] [address] Pharmacist Pharmacy 07/18/23 Cathy Burr APRN.FORM BLOCK MAKER [address] [place] [address] Signs Cleaner Internal Medicine 03/16/24 Lisbet Pizano APRN.INDUCTION HEATING EQUIPMENT SETTER [address] [place] [address] Signs Cleaner Internal Medicine 03/16/24 Wind Development Director Relationship Specialty Start Date End Date Jacinta Rivas MD [address] [place], [place] 350341 PCP - General Internal Medicine 02/03/19 Dena Lechuga, RN Specialty Production Line Welder Oncology 04/24/17 Jesus Carter MD [address] [place] [address] Physician Radiation Oncology 04/24/17 Taz Howard MD [address] [address] Home Care Provider Orthopedics 03/20/19 Taz Howard MD [address] [address] Referring Orthopedics 03/20/19 Eliz Bingham MD [address] [address] General Surgery 07/04/22 Ney aHrt MD [address] [address] Gastroenterology 07/04/22 Mino Rosales LISW [address] [place] [address] Garbage Collector Hematology/Oncology 01/08/23 Tatianna Crook, [facility] [address] [place] [address] Pharmacist Pharmacy 07/18/23 Cathy Burr, 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.FORM BLOCK MAKER [address] [place] [address] Signs Cleaner Internal Medicine 03/16/24 Lisbet Pizano 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.INDUCTION HEATING EQUIPMENT SETTER [address] [place] [address] Signs Cleaner Internal Medicine 03/16/24 Wind Development Director Relationship Specialty Start Date End Date Jacinta Rivas MD [address] [place] [address] PCP - General Internal Medicine 02/03/19 Dena Lechuga, RN Specialty Production Line Welder Oncology 04/24/17 Jesus Carter MD [address] [place] [address] Physician Radiation Oncology 04/24/17 Taz Howard MD [address] [address] Home Care Provider Orthopedics 03/20/19 Taz Howard MD [address] [address] Referring Orthopedics 03/20/19 Eliz Bingham MD [address] [address] General Surgery 07/04/22 Ney Hart MD [address] [address] Gastroenterology 07/04/22 Mino Rosales LISW [address] [place] [address] Garbage Collector Hematology/Oncology 01/08/23 Tatianna Crook [facility] [address] [place] [address] Pharmacist Pharmacy 07/18/23 Cathy Burr APRN.FORM BLOCK MAKER [address] [place] [address] Signs Cleaner Internal Medicine 03/16/24 Lisbet Pizano APRN.INDUCTION HEATING EQUIPMENT SETTER [address] [place] [address] Signs Cleaner Internal Medicine 03/16/24 Wind Development Director Relationship Specialty Start Date End Date Jacinta Rivas MD [address] [place] [address] PCP - General Internal Medicine 02/03/19 Dena Lechuga, FE Specialty Production Line Welder Oncology 04/24/17 Jesus Carter MD [address] [place] [address] Physician Radiation Oncology 04/24/17 Taz Howard MD [address] [address] Home Care Provider Orthopedics 03/20/19 Taz Howard MD [address] [address] Referring Orthopedics 03/20/19 Eliz Bingham MD [address] [address] General Surgery 07/04/22 Ney Hart MD [address] [address] [address] Gastroenterology 07/04/22 Mino Rosales LISW [address] [place] [address] Garbage Collector Hematology/Oncology 01/08/23 PaneccaTatianna poon, [facility] [address] [place] [address] Pharmacist Pharmacy 07/18/23 Cathy Burr, FELICIA.FORM BLOCK MAKER [address] [place] [address] Signs Cleaner Internal Medicine 03/16/24 Lisbet Pizano APRN.INDUCTION HEATING EQUIPMENT SETTER [address] [place] [address] Signs Cleaner Internal Medicine 03/16/24 Wind Development Director Relationship Specialty Start Date End Date Jacinta Rivas MD [address] [facility] [place] [address] PCP - General Internal Medicine 02/03/19 Dena Lechuga, RN Specialty Production Line Welder Oncology 04/24/17 Jesus Carter MD [address] [place] [address] Physician Radiation Oncology 04/24/17 Taz Howard MD [address] [facility] [address] [place] [address] Home Care Provider Orthopedics 03/20/19 Taz Howard MD [address] [address] Referring Orthopedics 03/20/19 Eliz Bingham MD [address] [address] General Surgery 07/04/22 Ney Hart MD [address] [address] Gastroenterology 07/04/22 Mino Rosales LISW 721 [facility] [place] [address] Garbage Collector Hematology/Oncology 01/08/23 PanecTatianna hankins, [facility] [address]40 [facility] [place] [address] Pharmacist Pharmacy 07/18/23 Cathy Burr APRN.FORM BLOCK MAKER [address] [facility] [place] [address] Signs Cleaner Internal Medicine 03/16/24 Lisbet Pizano APRN.INDUCTION HEATING EQUIPMENT SETTER [address] [place] [address] Signs Cleaner Internal Medicine 03/16/24 Wind Development Director Relationship Specialty Start Date End Date Jacinta Rivas MD [address] [place] [address] PCP - General Internal Medicine 02/03/19 Dena Lechuga, FE Specialty Production Line Welder Oncology 04/24/17 Jesus Carter MD [address] [place], [place] 444381 Physician Radiation Oncology 04/24/17 Taz Howard MD [address] [address] Home Care Provider Orthopedics 03/20/19 Taz Howard MD [address] [address] Referring Orthopedics 03/20/19 Eliz Bingham MD [address] [address] General Surgery 07/04/22 Ney Hart MD [address] [address] Gastroenterology 07/04/22 Mino Rosales LISW [address] [place] [address] Garbage Collector Hematology/Oncology 01/08/23 Tatianna Crook, [facility] [address] [place], [place] 449221 Pharmacist Pharmacy 07/18/23 Burr, Cathy, 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.FORM BLOCK MAKER [address] [place] [address] Signs Cleaner Internal Medicine 03/16/24 Lisbet Pizano APRN.INDUCTION HEATING EQUIPMENT SETTER [address] [place] [address] Signs Cleaner Internal Medicine 03/16/24 Wind Development Director Relationship Specialty Start Date End Date Jacinta Rivas MD [address] [place], [place] 195291 PCP - General Internal Medicine 02/03/19 Dena Lechuga, FE Specialty Production Line Welder Oncology 04/24/17 Jesus Carter MD [address] [place] [place] [address] Physician Radiation Oncology 04/24/17 Taz Howrad MD [address] [address] Home Care Provider Orthopedics 03/20/19 Taz Howard MD [address] [address] Referring Orthopedics 03/20/19 Eliz Bingham MD [address] [address] General Surgery 07/04/22 Ney Hart MD [address] [place] [address] Gastroenterology 07/04/22 Mino Rosales LISW [address] [place] [address] Garbage Collector Hematology/Oncology 01/08/23 Tatianna Crook [facility] [address] [place], [place] [address] Pharmacist Pharmacy 07/18/23 Cathy Burr APRN.FORM BLOCK MAKER [address] [place], [place] [address] Signs Cleaner Internal Medicine 03/16/24 Lisbet Pizano 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.INDUCTION HEATING EQUIPMENT SETTER [address] [place], [place] [address] Signs Cleaner Internal Medicine 03/16/24 Wind Development Director Relationship Specialty Start Date End Date Jacinta Rivas MD [address] [place], [place] 882071 PCP - General Internal Medicine 02/03/19 Dena Lechuga, FE Specialty Production Line Welder Oncology 04/24/17 Jesus Carter MD [address] [place], [place] [address] Physician Radiation Oncology 04/24/17 Taz Howard MD [address] [address] Home Care Provider Orthopedics 03/20/19 Taz Howard MD [address] [address] Referring Orthopedics 03/20/19 Eliz Bingham MD [address] [address] General Surgery 07/04/22 Ney Hart MD [address] [facility] [address] [address] Gastroenterology 07/04/22 Mino Rosales LISW [address] [place] [address] Garbage Collector Hematology/Oncology 01/08/23 Tatianna Crook, [facility] [address] [place] [address] Pharmacist Pharmacy 07/18/23 Cathy Burr, 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.FORM BLOCK MAKER [address]40 [facility] [place] [address] Signs Cleaner Internal Medicine 03/16/24 Lisbet Pizano 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.INDUCTION HEATING EQUIPMENT SETTER [address] [place] [address] Signs Cleaner Internal Medicine 03/16/24 Wind Development Director Relationship Specialty Start Date End Date Jacinta Rivas MD [address] [place] [address] PCP - General Internal Medicine 02/03/19 Dena Lechuga, RN Specialty Production Line Welder Oncology 04/24/17 Jesus Carter MD [address] [facility] [place] [address] Physician Radiation Oncology 04/24/17 Taz Howard MD [address] [address] Home Care Provider Orthopedics 03/20/19 Taz Howard MD [address] [address] Referring Orthopedics 03/20/19 Eliz Bingham MD [address] [address] General Surgery 07/04/22 Ney Hart MD [address] [facility] [address] [address] Gastroenterology 07/04/22 Mino Rosales LISW [address] [place] [address] Garbage Collector Hematology/Oncology 01/08/23 Tatianna Crook [facility] [address] [place] [address] Pharmacist Pharmacy 07/18/23 Cathy Burr APRN.FORM BLOCK MAKER [address] [place] [address] Signs Cleaner Internal Medicine 03/16/24 Lisbet Pizano APRN.INDUCTION HEATING EQUIPMENT SETTER [address] [place] [address] Signs Cleaner Internal Medicine 03/16/24 Wind Development Director Relationship Specialty Start Date End Date Jacinta Rivas MD [address] [place] [address] PCP - General Internal Medicine 02/03/19 Dena Lechuga, RN Specialty Production Line Welder Oncology 04/24/17 Jesus Carter MD [address] [facility] [place] [address] Physician Radiation Oncology 04/24/17 Taz Howard MD [address] [address] Home Care Provider Orthopedics 03/20/19 Taz Howard MD [address] [address] Referring Orthopedics 03/20/19 Eliz Bingham MD [address] [address] General Surgery 07/04/22 Ney Hart MD [address] [facility] [address] [address] Gastroenterology 07/04/22 Mino Rosales LISW 721 [facility] [place] [address] Garbage Collector Hematology/Oncology 01/08/23 [facility] 1740 [facility] [place] [address] Pharmacist Pharmacy 07/18/23 Cathy Burr APRN.FORM BLOCK MAKER [address] [facility] [place] [address] Signs Cleaner Internal Medicine 03/16/24 Lisbet Pizano APRN.INDUCTION HEATING EQUIPMENT SETTER [address] [facility] [place] [address] Signs Cleaner Internal Medicine 03/16/24 Wind Development Director Relationship Specialty Start Date End Date Jacinta Rivas MD [address] [facility] [place] [address] PCP - General Internal Medicine 02/03/19 Dena Lechuga RN Specialty Production Line Welder Oncology 04/24/17 Jesus Carter MD [address] [facility] [place] [address] Physician Radiation Oncology 04/24/17 Taz Howard MD [address] [facility] [address] [place] [address] Home Care Provider Orthopedics 03/20/19 Taz Howard MD [address] [facility] [address] [place] [address] Referring Orthopedics 03/20/19 Eliz Bingham MD [address] [address] General Surgery 07/04/22 Ney Hart MD [address] [address] [address] Gastroenterology 07/04/22 Mino Rosales LISW [address] [place] [address] Garbage Collector Hematology/Oncology 01/08/23 Tatianna Crook, [facility] [address] [place] [address] Pharmacist Pharmacy 07/18/23 Cathy Burr, 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.FORM BLOCK MAKER [address] [place] [address] Signs Cleaner Internal Medicine 03/16/24 Lisbet Pizano, 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.INDUCTION HEATING EQUIPMENT SETTER [address] [place] [address] Signs Cleaner Internal Medicine 03/16/24 Wind Development Director Relationship Specialty Start Date End Date Jacinta Rivas MD [address] [place], [place] [address]31 PCP - General Internal Medicine 02/03/19 Dena Lechuga, RN Specialty Production Line Welder Oncology 04/24/17 Jesus Carter MD [address] [place] [address] Physician Radiation Oncology 04/24/17 Taz Howard MD [address] [address] Home Care Provider Orthopedics 03/20/19 Taz Howard MD [address] [address] Referring Orthopedics 03/20/19 Eliz Bingham MD [address] [address] General Surgery 07/04/22 Ney Hart MD [address] [address] Gastroenterology 07/04/22 Mino Rosales LISW [address] [place] [address] Garbage Collector Hematology/Oncology 01/08/23 Tatianna Crook, [facility] [address] [place] [address] Pharmacist Pharmacy 07/18/23 Cathy Burr APRN.FORM BLOCK MAKER [address] [place] [address] Signs Cleaner Internal Medicine 03/16/24 Lisbet Pizano 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.INDUCTION HEATING EQUIPMENT SETTER [address] [place] [address] Signs Cleaner Internal Medicine 03/16/24 Wind Development Director Relationship Specialty Start Date End Date Jacinta Rivas MD [address] [place] [address] PCP - General Internal Medicine 02/03/19 Dena Lechuga, FE Specialty Production Line Welder Oncology 04/24/17 Jesus Carter MD [address] [place] [address] Physician Radiation Oncology 04/24/17 Taz Howard MD [address] [address] Home Care Provider Orthopedics 03/20/19 Taz Howard MD [address] [address] Referring Orthopedics 03/20/19 Eliz Bingham MD [address] [address] General Surgery 07/04/22 Ney Hart MD [address] [address] Gastroenterology 07/04/22 Mino Rosales LISW [address] [place] [address] Garbage Collector Hematology/Oncology 01/08/23 Tatianna Crook, [facility] [address] [place] [address] Pharmacist Pharmacy 07/18/23 Cathy Burr APRN.FORM BLOCK MAKER [address] [place] [address] Signs Cleaner Internal Medicine 03/16/24 Lisbet Pizano APRN.INDUCTION HEATING EQUIPMENT SETTER [address] [place] [address] Signs Cleaner Internal Medicine 03/16/24 Wind Development Director Relationship Specialty Start Date End Date Jacinta Rivas MD [address] [place] [address] PCP - General Internal Medicine 02/03/19 Dena Lechuga, FE Specialty Production Line Welder Oncology 04/24/17 Jesus Carter MD [address] [place] [place] [address] Physician Radiation Oncology 04/24/17 Taz Howard MD [address] [address] Home Care Provider Orthopedics 03/20/19 Taz Howard MD [address] [address] Referring Orthopedics 03/20/19 Eliz Bingham MD [address] [address] General Surgery 07/04/22 Ney Hart MD [address] [address] Gastroenterology 07/04/22 Mino Rosales LISW [address] [place] [address] Garbage Collector Hematology/Oncology 01/08/23 Tatianna Crook [facility] 1740 [facility] [place] [address] Pharmacist Pharmacy 07/18/23 Cathy Burr APRN.FORM BLOCK MAKER [address] [place] [address] Signs Cleaner Internal Medicine 03/16/24 Lisbet Pizano 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.INDUCTION HEATING EQUIPMENT SETTER [address] [place] [address] Signs Cleaner Internal Medicine 03/16/24 Wind Development Director Relationship Specialty Start Date End Date Jacinta Rivas MD [address] [place] [address] PCP - General Internal Medicine 02/03/19 Dena Lechuga RN Specialty Production Line Welder Oncology 04/24/17 Jesus Carter MD [address] [place] [address] Physician Radiation Oncology 04/24/17 Taz Howard MD [address] [address] Home Care Provider Orthopedics 03/20/19 Taz Howard MD [address] [address] Referring Orthopedics 03/20/19 Eliz Bingham MD [address] [address] General Surgery 07/04/22 Ney Hart MD [address] [place] [address] [place] [address] Gastroenterology 07/04/22 Mino Rosales LISW [address] [place] [address] Garbage Collector Hematology/Oncology 01/08/23 Cl Crookietta, [facility] [address] [place] [address] Pharmacist Pharmacy 07/18/23 Cathy Burr, 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.FORM BLOCK MAKER [address] [facility] [place] [address] Signs Cleaner Internal Medicine 03/16/24 Lisbet Pizano 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.INDUCTION HEATING EQUIPMENT SETTER [address] [facility] [place] [address] Signs Cleaner Internal Medicine 06/30/24 Wind Development Director Relationship Specialty Start Date End Date Jacinta Rivas MD [address] [place] [address] PCP - General Internal Medicine 02/03/19 Dena Lechuga, RN Specialty Production Line Welder Oncology 04/24/17 Jesus Carter MD [address] [facility] [place] [address] Physician Radiation Oncology 04/24/17 Taz Howard MD [address] [address] Home Care Provider Orthopedics 03/20/19 Taz Howard MD [address] [address] Referring Orthopedics 03/20/19 Eliz Bingham MD [address] [facility] [address] [place] [address] General Surgery 07/04/22 Ney Hart MD [address] [address] Gastroenterology 07/04/22 Mino Rosales LISW [address] [place] [address] Garbage Collector Hematology/Oncology 01/08/23 Tatianna Crook, [facility] [address] [place] [address] Pharmacist Pharmacy 07/18/23 Cathy Burr APRN.FORM BLOCK MAKER [address] [place] [address] Signs Cleaner Internal Medicine 03/16/24 Lisbet Pizano, PLUMBING ASSEMBLER INSTALLER.INDUCTION HEATING EQUIPMENT SETTER [address] [place] [address] Signs Cleaner Internal Medicine 06/30/24 Wind Development Director Relationship Specialty Start Date End Date Jacinta Rivas MD [address] [place] [address] PCP - General Internal Medicine 02/03/19 Dena Lechuga, RN Specialty Production Line Welder Oncology 04/24/17 Jesus Carter MD [address] [place] [address] Physician Radiation Oncology 04/24/17 Taz Howard MD [address] [address] Home Care Provider Orthopedics 03/20/19 Taz Howard MD [address] [facility] [address] [place] [address] Referring Orthopedics 03/20/19 Eliz Bingham MD [address] [facility] [address] [place] [address] General Surgery 07/04/22 Ney Hart MD [address] [place] [address] Gastroenterology 07/04/22 Mino Rosales LISW 721 [facility] [place] [address] Garbage Collector Hematology/Oncology 01/08/23 [facility] 1740 [facility] [place] [address] Pharmacist Pharmacy 07/18/23 Cathy Burr, PLUMBING ASSEMBLER INSTALLER.FORM BLOCK MAKER [address] [facility] [place] [address] Signs Cleaner Internal Medicine 03/16/24 Lisbet Pizano PLUMBING ASSEMBLER INSTALLER.INDUCTION HEATING EQUIPMENT SETTER [address] [facility] [place] [address] Signs Cleaner Internal Medicine 06/30/24 Wind Development Director Relationship Specialty Start Date End Date Jacinta Rivas MD [address] [facility] [place] [address] PCP - General Internal Medicine 02/03/19 Dena Lechuga, RN Specialty Production Line Welder Oncology 04/24/17 Jesus Carter MD [address] [place] [address] Physician Radiation Oncology 04/24/17 Taz Howard MD [address] [facility] [address] [place] [address] Home Care Provider Orthopedics 03/20/19 Taz Howard MD [address] [facility] [address] [place] [address] Referring Orthopedics 03/20/19 Eliz Bingham MD [address] [facility] [address] [place] [address] General Surgery 07/04/22 Ney Hart MD [address] [facility] [address] [address] Gastroenterology 07/04/22 Mino Rosales LISW [address] [place] [address] Garbage Collector Hematology/Oncology 01/08/23 Tatianna Crook [facility] [address] [place] [address] Pharmacist Pharmacy 07/18/23 Cathy Burr, PLUMBING ASSEMBLER INSTALLER.FORM BLOCK MAKER [address] [place] [address] Signs Cleaner Internal Medicine 03/16/24 Lisbet Pizano, PLUMBING ASSEMBLER INSTALLER.INDUCTION HEATING EQUIPMENT SETTER [address] [place] [address] Signs Cleaner Internal Medicine 06/30/24 Wind Development Director Relationship Specialty Start Date End Date Jacinta Rivas MD [address] [place] [address] PCP - General Internal Medicine 02/03/19 Dena Lechuga, RN Specialty Production Line Welder Oncology 04/24/17 Jesus Carter MD [address] [place] [address] Physician Radiation Oncology 04/24/17 Taz Howard MD [address] [address] Home Care Provider Orthopedics 03/20/19 Taz Howard MD [address] [address] Referring Orthopedics 03/20/19 Eliz Bingham MD [address] [address] General Surgery 07/04/22 Ney Hart MD [address] [address] Gastroenterology 07/04/22 Mino Rosales LISW [address] [place] [address] Garbage Collector Hematology/Oncology 01/08/23 Tatianna Crook [facility] [address] [place] [address] Pharmacist Pharmacy 07/18/23 Cathy Burr APRN.FORM BLOCK MAKER [address] [place] [address] Signs Cleaner Internal Medicine 03/16/24 Lisbet Pizano APRN.INDUCTION HEATING EQUIPMENT SETTER [address] [place] [address] Signs Cleaner Internal Medicine 06/30/24 Wind Development Director Relationship Specialty Start Date End Date Jacinta Rivas MD [address] [place], [place] [address]21 PCP - General Internal Medicine 02/03/19 Dena Lechuga, RN Specialty Production Line Welder Oncology 04/24/17 Jesus Carter MD [address] [place] [address] Physician Radiation Oncology 04/24/17 Taz Howard MD [address] [address] Home Care Provider Orthopedics 03/20/19 Taz Howard MD [address] [address] Referring Orthopedics 03/20/19 Eliz Bingham MD [address] [address] General Surgery 07/04/22 Ney Hart MD [address] [address] Gastroenterology 07/04/22 Mino Rosales LISW [address] [place] [address] Garbage Collector Hematology/Oncology 01/08/23 Tatianna Crook [facility] [address] [place], [place] [address]01 Pharmacist Pharmacy 07/18/23 Cathy Burr APRN.FORM BLOCK MAKER [address] [place], [place] [address]91 Signs Cleaner Internal Medicine 03/16/24 Lisbet Pizano APRN.INDUCTION HEATING EQUIPMENT SETTER [address] [place], [place] 445881 Signs Cleaner Internal Medicine 06/30/24 Wind Development Director Relationship Specialty Start Date End Date Jacinta Rivas MD [address] [place] [address] PCP - General Internal Medicine 02/03/19 Dena Lechuga, FE Specialty Production Line Welder Oncology 04/24/17 Jesus Carter MD [address] [place] [address] Physician Radiation Oncology 04/24/17 Taz Howard MD [address] [address] Home Care Provider Orthopedics 03/20/19 Taz Howard MD [address] [address] Referring Orthopedics 03/20/19 Eliz Bingham MD [address] [address] General Surgery 07/04/22 Ney Hart MD [address] [address] [address] Gastroenterology 07/04/22 Mino Rosales LISW [address] [place] [address] Garbage Collector Hematology/Oncology 01/08/23 Tatianna Crook [facility] 1740 [place] [address] Pharmacist Pharmacy 07/18/23 Cathy Burr, FELICIA.FORM BLOCK MAKER [address] [place] [address] Signs Cleaner Internal Medicine 03/16/24 Lisbet Pizano PLUMBING ASSEMBLER INSTALLER.INDUCTION HEATING EQUIPMENT SETTER 1740 [facility] [place] [address] Signs Cleaner Internal Medicine 06/30/24 Wind Development Director Relationship Specialty Start Date End Date Jacinta Rivas MD [address] [place] [address] PCP - General Internal Medicine 02/03/19 Dena Lechuga RN Specialty Production Line Welder Oncology 04/24/17 Jesus Carter MD [address] [place] [address] Physician Radiation Oncology 04/24/17 Taz Howard MD [address] [address] Home Care Provider Orthopedics 03/20/19 Taz Howard MD [address] [address] Referring Orthopedics 03/20/19 Eliz Bingham MD [address] [address] General Surgery 07/04/22 Ney Hart MD [address] [address] [address] Gastroenterology 07/04/22 Mino Rosales LISW [address] [place] [address] Garbage Collector Hematology/Oncology 01/08/23 Tatianna Crook [facility] [address] [place] [address] Pharmacist Pharmacy 07/18/23 Cathy Burr APRN.FORM BLOCK MAKER [address] [place] [address] Signs Cleaner Internal Medicine 03/16/24 Lisbet Pizano APRN.INDUCTION HEATING EQUIPMENT SETTER [address] [place] [address] Signs Cleaner Internal Medicine 06/30/24 Wind Development Director Relationship Specialty Start Date End Date Jacinta Rivas MD [address] [place] [address] PCP - General Internal Medicine 02/03/19 Dena Lechuga, FE Specialty Production Line Welder Oncology 04/24/17 Jesus Carter MD [address] [place] [address] Physician Radiation Oncology 04/24/17 Taz Howard MD [address] [address] Home Care Provider Orthopedics 03/20/19 Taz Howard MD [address] [address] Referring Orthopedics 03/20/19 Eliz Bingham MD [address] [address] General Surgery 07/04/22 Ney Hart MD [address] [facility] [place] [address] [place] [address] Gastroenterology 07/04/22 Mino Rosales LISW [address] [place] [address] Garbage Collector Hematology/Oncology 01/08/23 Tatianna Crook [facility] 1740 [facility] [place] [address] Pharmacist Pharmacy 07/18/23 Cathy Burr APRN.FORM BLOCK MAKER [address] [place] [address] Signs Cleaner Internal Medicine 03/16/24 Lisbet Pizano PLUMBING ASSEMBLER INSTALLER.INDUCTION HEATING EQUIPMENT SETTER [address] [place] [address] Signs Cleaner Internal Medicine 06/30/24 Wind Development Director Relationship Specialty Start Date End Date Jacinta Rivas MD [address] [place] [address] PCP - General Internal Medicine 02/03/19 Dena Lechuga, FE Specialty Production Line Welder Oncology 04/24/17 Jesus Carter MD [address] [facility] [place] [address] Physician Radiation Oncology 04/24/17 Taz Howard MD [address] [address] Home Care Provider Orthopedics 03/20/19 Taz Howard MD [address] [facility] [address] [place] [address] Referring Orthopedics 03/20/19 Eliz Bingham MD [address] [facility] [address] [place] [address] General Surgery 07/04/22 Ney Hart MD [address] [facility] 206 [place] [address] Gastroenterology 07/04/22 Mino Rosales LISW 721 [facility] [place] [address] Garbage Collector Hematology/Oncology 01/08/23 Tatianna Crook, [facility] 1740 [facility] [place] [address] Pharmacist Pharmacy 07/18/23 Cathy Burr, PLUMBING ASSEMBLER INSTALLER.FORM BLOCK MAKER [address] [facility] [place] [address] Signs Cleaner Internal Medicine 03/16/24 Lisbet Pizano PLUMBING ASSEMBLER INSTALLER.INDUCTION HEATING EQUIPMENT SETTER [address]40 [facility] [place] [address] Signs Cleaner Internal Medicine 03/16/24 06/26/24 Lisbet Pizano PLUMBING ASSEMBLER INSTALLER.INDUCTION HEATING EQUIPMENT SETTER [address] [facility] [place] [address] Signs Cleaner Internal Medicine 06/30/24 Wind Development Director Relationship Specialty Start Date End Date Jacinta Rivas MD [address] [facility] [place] [address] PCP - General Internal Medicine 02/03/19 Dena Lechuga, RN Specialty Production Line Welder Oncology 04/24/17 Jesus Carter MD [address] [place] [address] Physician Radiation Oncology 04/24/17 Taz Howard MD [address] [facility] [address] [place] [address] Home Care Provider Orthopedics 03/20/19 Taz Howard MD [address] [facility] [address] [place] [address] Referring Orthopedics 03/20/19 Eliz Bingham MD [address] [facility] [address] [place] [address] General Surgery 07/04/22 Ney Hart MD [address] [facility] [facility] 206 [place] [address] Gastroenterology 07/04/22 Mino Rosales LISW [address] [place] [address] Garbage Collector Hematology/Oncology 01/08/23 SbeccaTatianna poon, [facility] 17[address] [facility] [place] [address] Pharmacist Pharmacy 07/18/23 Cathy Burr APRN.FORM BLOCK MAKER [address] [facility] [place] [address] Signs Cleaner Internal Medicine 03/16/24 Lisbet Pizano APRN.INDUCTION HEATING EQUIPMENT SETTER [address] [facility] [place] [address] Signs Cleaner Internal Medicine 06/30/24 Wind Development Director Relationship Specialty Start Date End Date Jacinta Rivas MD [address] [place] [address] PCP - General Internal Medicine 02/03/19 Dena Lechuga, RN Specialty Production Line Welder Oncology 04/24/17 Jesus Carter MD [address] [place] [address] Physician Radiation Oncology 04/24/17 Taz Howard MD [address] [facility] [address] [place] [address] Home Care Provider Orthopedics 03/20/19 Taz Howadr MD [address] [facility] [address] [place] [address] Referring Orthopedics 03/20/19 Eliz Bingham MD [address] [facility] [address] [place] [address] General Surgery 07/04/22 Ney Hart MD [address] [address] Gastroenterology 07/04/22 Mino Rosales LISW 721 [place] [address] Garbage Collector Hematology/Oncology 01/08/23 Tatianna Crook, [facility] 1740 [place] [address] Pharmacist Pharmacy 07/18/23 Cathy Burr APRN.FORM BLOCK MAKER [address] [place], [place] [address] Signs Cleaner Internal Medicine 03/16/24 Lisbet Pizano APRN.INDUCTION HEATING EQUIPMENT SETTER [address] [place] [address] Signs Cleaner Internal Medicine 06/30/24 Wind Development Director Relationship Specialty Start Date End Date Jacinta Rivas MD [address] [place] [address] PCP - General Internal Medicine 02/03/19 Dena Lechuga, FE Specialty Production Line Welder Oncology 04/24/17 Jesus Carter MD [address] [place], [place] [address] Physician Radiation Oncology 04/24/17 Taz Howard MD [address] [address] Home Care Provider Orthopedics 03/20/19 Taz Howard MD [address] [address] Referring Orthopedics 03/20/19 Eliz Bingham MD [address] [address] General Surgery 07/04/22 Ney Hart MD [address] [address] Gastroenterology 07/04/22 Mino Rosales LISW [address] [place] [address] Garbage Collector Hematology/Oncology 01/08/23 Tatianna Crook, [facility] [address] [place] [address] Pharmacist Pharmacy 07/18/23 Cathy Burr, PLUMBING ASSEMBLER INSTALLER.FORM BLOCK MAKER [address] [place], [place] [address]87[address] Signs Cleaner Internal Medicine 03/16/24 Lisbet Pizano APRN.INDUCTION HEATING EQUIPMENT SETTER [address] [place], [place] [address] Signs Cleaner Internal Medicine 06/30/24 Wind Development Director Relationship Specialty Start Date End Date Jacinta Rivas MD [address] [place], [place] [address] PCP - General Internal Medicine 02/03/19 Dena Lechuga, FE Specialty Production Line Welder Oncology 04/24/17 Jesus Carter MD [address] [place] [address] Physician Radiation Oncology 04/24/17 Taz Howard MD [address] [address] Home Care Provider Orthopedics 03/20/19 Taz Howard MD [address] [address] Referring Orthopedics 03/20/19 Eliz Bingham MD [address] [address] General Surgery 07/04/22 Ney Hart MD [address] [address] [address] Gastroenterology 07/04/22 Mino Rosales LISW 721 [place] [address] Garbage Collector Hematology/Oncology 01/08/23 Tatianna Crook [facility] 1740 [place] [address] Pharmacist Pharmacy 07/18/23 Cathy Burr APRN.FORM BLOCK MAKER [address] [place] [address] Signs Cleaner Internal Medicine 03/16/24 Lisbet Pizano APRN.INDUCTION HEATING EQUIPMENT SETTER [address] [place] [address] [facility] Internal Medicine 03/16/24 06/26/24 Lisbet Pizano APRN.INDUCTION HEATING EQUIPMENT SETTER [address] [place] [address] [facility] Internal Medicine 06/30/24 Wind Development Director Relationship Specialty Start Date End Date Jacinta Rivas MD [address] [place], [place] [address]01 PCP - General Internal Medicine 02/03/19 Dnea Lechuga, FE Specialty Production Line Welder Oncology 04/24/17 Jesus Catrer MD [address] [place] [address] Physician Radiation Oncology 04/24/17 Taz Howard MD [address] [address] Home Care Provider Orthopedics 03/20/19 Taz Howard MD [address] [address] Referring Orthopedics 03/20/19 Eliz Bingham MD [address] [address] General Surgery 07/04/22 Ney Hart MD [address] [address] Gastroenterology 07/04/22 Mino Rosales LISW 721 [place] [address] Garbage Collector Hematology/Oncology 01/08/23 Tatianna Crook [facility] 1740 [place] [address] Pharmacist Pharmacy 07/18/23 Lisbet Pizano PLUMBING ASSEMBLER INSTALLER.INDUCTION HEATING EQUIPMENT SETTER [address] [place] [address] Signs Cleaner Internal Medicine 06/30/24 Cathy Burr, FELICIA.FORM BLOCK MAKER [address] [place] [address] Signs Cleaner Internal Medicine 08/26/24 Wind Development Director Relationship Specialty Start Date End Date Jacinta Rivas MD [address] [place] [address] PCP - General Internal Medicine 02/03/19 Dena Lechuga, RN Specialty Production Line Welder Oncology 04/24/17 Jesus Carter MD [address] [place] [address] Physician Radiation Oncology 04/24/17 Taz Howard MD [address] [address] Home Care Provider Orthopedics 03/20/19 Taz Howard MD [address] [address] Referring Orthopedics 03/20/19 Eliz Bingham MD [address] [address] General Surgery 07/04/22 Ney Hart MD [address] [facility] [address] [address] Gastroenterology 07/04/22 Mino Rosales LISW [address]21 [place] [address] Garbage Collector Hematology/Oncology 01/08/23 Tatianna Crook, [facility] 1740 [place] [address] Pharmacist Pharmacy 07/18/23 Lisbet Pizano APRN.INDUCTION HEATING EQUIPMENT SETTER [address] [place] [address] Signs Cleaner Internal Medicine 06/30/24 Cathy Burr, FELICIA.FORM BLOCK MAKER [address] [place] [address] Signs Cleaner Internal Medicine 08/26/24 Wind Development Director Relationship Specialty Start Date End Date Jacinta Rivas MD [address] [place] [address] PCP - General Internal Medicine 02/03/19 Dena Lechuga, FE Specialty Production Line Welder Oncology 04/24/17 Jesus Carter MD [address]21 [place] [address] Physician Radiation Oncology 04/24/17 Taz Howard MD [address] [facility] [address]A [place] [address] Home Care Provider Orthopedics 03/20/19 Taz Howard MD [address] [address] Referring Orthopedics 03/20/19 Eliz Bingham MD [address] [address] General Surgery 07/04/22 Ney Hart MD [address] [address] Gastroenterology 07/04/22 Mino Rosales LISW [address]21 [place] [address] Garbage Collector Hematology/Oncology 01/08/23 Tatianna Crook, [facility] [address] [place] [address] Pharmacist Pharmacy 07/18/23 Lisbet Pizano, PLUMBING ASSEMBLER INSTALLER.INDUCTION HEATING EQUIPMENT SETTER [address] [place] [address] Signs Cleaner Internal Medicine 06/30/24 Cathy Burr, FELICIA.FORM BLOCK MAKER [address] [place] [address] Signs Cleaner Internal Medicine 08/26/24 Wind Development Director Relationship Specialty Start Date End Date Jacinta Rivas MD [address] [place] [address] PCP - General Internal Medicine 02/03/19 Dena Lechuga, RN Specialty Production Line Welder Oncology 04/24/17 Jesus Carter MD [address] [place] [address] Physician Radiation Oncology 04/24/17 Taz Howard MD [address] [address] Home Care Provider Orthopedics 03/20/19 Taz Howard MD [address] [address] Referring Orthopedics 03/20/19 Eliz Bingham MD [address] [address] General Surgery 07/04/22 Ney Hart MD [address] [address] [address] Gastroenterology 07/04/22 Mino Rosales LISW 721 [place] [address] Garbage Collector Hematology/Oncology 01/08/23 Tatianna Crook [facility] [address] [place] [address] Pharmacist Pharmacy 07/18/23 Lisbet Pizano APRN.INDUCTION HEATING EQUIPMENT SETTER [address] [place] [address] Signs Cleaner Internal Medicine 06/30/24 Cathy Burr APRN.FORM BLOCK MAKER [address] [place] [address] Signs Cleaner Internal Medicine 08/26/24 Wind Development Director Relationship Specialty Start Date End Date Jacinta Rivas MD [address] [place] [address] PCP - General Internal Medicine 02/03/19 Dena Lechuga, FE Specialty Production Line Welder Oncology 04/24/17 Jesus Carter MD [address] [place] [address] Physician Radiation Oncology 04/24/17 Taz Howard MD [address] [address] Home Care Provider Orthopedics 03/20/19 Taz Howard MD [address] [address] Referring Orthopedics 03/20/19 Eliz Bingham MD [address] [address] General Surgery 07/04/22 Ney Hart MD [address] [address] Gastroenterology 07/04/22 Mino Rosales LISW [address] [place] [address] Garbage Collector Hematology/Oncology 01/08/23 Tatianna Crook [facility] 17[address] [place] [address] Pharmacist Pharmacy 07/18/23 Lisbet Pizano APRN.INDUCTION HEATING EQUIPMENT SETTER [address] [place] [address] Signs Cleaner Internal Medicine 06/30/24 Cathy Burr APRN.FORM BLOCK MAKER [address] [place] [address] Signs Cleaner Internal Medicine 08/26/24 Wind Development Director Relationship Specialty Start Date End Date Jacinta Rivas MD [address] [place] [address] PCP - General Internal Medicine 02/03/19 Dena Lechuga, FE Specialty Production Line Welder Oncology 04/24/17 Jesus Carter MD [address] [place] [address] Physician Radiation Oncology 04/24/17 Taz Howard MD [address] [address] Home Care Provider Orthopedics 03/20/19 Taz Howard MD [address] [address] Referring Orthopedics 03/20/19 Eliz Bingham MD [address] [address] General Surgery 07/04/22 Ney Hart MD [address] [address] Gastroenterology 07/04/22 iMno Rosales LISW [address]21 [place] [address] Garbage Collector Hematology/Oncology 01/08/23 Tatianna Crook, [facility] 17[address] [place], [place] [address] Pharmacist Pharmacy 07/18/23 Lisbet Pizano PLUMBING ASSEMBLER INSTALLER.INDUCTION HEATING EQUIPMENT SETTER [address] [place] [address] Signs Cleaner Internal Medicine 06/30/24 Cathy Burr, PLUMBING ASSEMBLER INSTALLER.FORM BLOCK MAKER [address] [place], [place] [address] Signs Cleaner Internal Medicine 08/26/24 Wind Development Director Relationship Specialty Start Date End Date Jacinta Rivas MD [address] [place], [place] [address] PCP - General Internal Medicine 02/03/19 Dena Lechuga RN Specialty Production Line Welder Oncology 04/24/17 Jesus Carter MD [address] [place], [place] [address] Physician Radiation Oncology 04/24/17 Taz Howard MD [address] [address] Home Care Provider Orthopedics 03/20/19 Taz Howard MD [address] [address] Referring Orthopedics 03/20/19 Eliz Bingham MD [address] [address] General Surgery 07/04/22 Ney Hart MD [address] [facility] 206 [place] [address] Gastroenterology 07/04/22 Mino Rosales LISW [address] [place] [address] Garbage Collector Hematology/Oncology 01/08/23 Tatianna Crook, [facility] [address] [place] [address] Pharmacist Pharmacy 07/18/23 Lisbet Pizano PLUMBING ASSEMBLER INSTALLER.INDUCTION HEATING EQUIPMENT SETTER 1740 [facility] [place] [address] Signs Cleaner Internal Medicine 06/30/24 Cathy Burr APRN.FORM BLOCK MAKER [address] [facility] [place] [address] Signs Cleaner Internal Medicine 08/26/24 Wind Development Director Relationship Specialty Start Date End Date Jacinta Rivas MD [address] [facility] [place] [address] PCP - General Internal Medicine 02/03/19 Dena Lechuga, RN Specialty Production Line Welder Oncology 04/24/17 Jesus Carter MD [address] [facility] [place] [address] Physician Radiation Oncology 04/24/17 Taz Howard MD [address] [address] Home Care Provider Orthopedics 03/20/19 Taz Howard MD [address] [address] Referring Orthopedics 03/20/19 Eliz Bingham MD [address] [facility] [address]A [place] [address] General Surgery 07/04/22 Ney Hart MD [address] [address] Gastroenterology 07/04/22 Mino Rosales LISW 721 [facility] [place] [address] Garbage Collector Hematology/Oncology 01/08/23 Tatianna Crook, [facility] [address] [place] [address] Pharmacist Pharmacy 07/18/23 Cathy Burr, PLUMBING ASSEMBLER INSTALLER.FORM BLOCK MAKER [address] [place] [address] Signs Cleaner Internal Medicine 03/16/24 08/25/24 Lisbet Pizano, PLUMBING ASSEMBLER INSTALLER.INDUCTION HEATING EQUIPMENT SETTER [address] [place] [address] [facility] Internal Medicine 06/30/24 Cathy Burr, PLUMBING ASSEMBLER INSTALLER.FORM BLOCK MAKER [address] [place] [address] Signs Cleaner Internal Medicine 08/26/24 Wind Development Director Relationship Specialty Start Date End Date Jacinta Rivas MD [address] [place] [address] PCP - General Internal Medicine 02/03/19 Dena Lechuga, RN Specialty Production Line Welder Oncology 04/24/17 Jesus Carter MD [address] [facility] [place] [address] Physician Radiation Oncology 04/24/17 Taz Howard MD [address] [facility] [address] [place] [address] Home Care Provider Orthopedics 03/20/19 Taz Howard MD [address] [facility] [address] [place] [address] Referring Orthopedics 03/20/19 Eliz Bingham MD [address] [facility] [address] [place] [address] General Surgery 07/04/22 Ney Hart MD [address] [address] Gastroenterology 07/04/22 Mino Rosales LISW [address] [place] [address] Garbage Collector Hematology/Oncology 01/08/23 Tatianna Crook [facility] [address] [place] [address] Pharmacist Pharmacy 07/18/23 Lisbet Pizano, PLUMBING ASSEMBLER INSTALLER.INDUCTION HEATING EQUIPMENT SETTER [address] [place] [address] Signs Cleaner Internal Medicine 06/30/24 Cathy Burr, PLUMBING ASSEMBLER INSTALLER.FORM BLOCK MAKER [address] [place] [address] Signs Cleaner Internal Medicine 08/26/24 Wind Development Director Relationship Specialty Start Date End Date Jacinta Rivas MD [address] [place] [address] PCP - General Internal Medicine 02/03/19 Dena Lechuga, RN Specialty Production Line Welder Oncology 04/24/17 Jesus Carter MD [address] [place] [address] Physician Radiation Oncology 04/24/17 Taz Howard MD [address] [address] Home Care Provider Orthopedics 03/20/19 Taz Howard MD [address] [address] Referring Orthopedics 03/20/19 Eliz Bingham MD [address] [address] General Surgery 07/04/22 Ney Hart MD [address] [address] Gastroenterology 07/04/22 Mino Rosales LISW [address] [place] [address] Garbage Collector Hematology/Oncology 01/08/23 Tatianna Crook [facility] [address] [place] [address] Pharmacist Pharmacy 07/18/23 Lisbet Pizano APRN.INDUCTION HEATING EQUIPMENT SETTER [address] [facility] [place] [address] Signs Cleaner Internal Medicine 06/30/24 Cathy Burr APRN.FORM BLOCK MAKER [address] [facility] [place] [address] Signs Cleaner Internal Medicine 08/26/24 Wind Development Director Relationship Specialty Start Date End Date Jacinta Rivas MD [address] [place] [address] PCP - General Internal Medicine 02/03/19 Dena Lechuga, RN Specialty Production Line Welder Oncology 04/24/17 Jesus Carter MD [address] [place] [address] Physician Radiation Oncology 04/24/17 Taz Howard MD [address] [address] Home Care Provider Orthopedics 03/20/19 Taz Howard MD [address] [address] Referring Orthopedics 03/20/19 Eliz Bingham MD [address] [address] General Surgery 07/04/22 Ney Hart MD [address] [address] Gastroenterology 07/04/22 Mion Rosales LISW [address] [place] [address] Garbage Collector Hematology/Oncology 01/08/23 Tatianna Crook [facility] [address] [place] [address] Pharmacist Pharmacy 07/18/23 Lisbet Pizano APRN.INDUCTION HEATING EQUIPMENT SETTER [address] [place], [place] [address] Signs Cleaner Internal Medicine 06/30/24 Cathy Burr APRN.FORM BLOCK MAKER [address] [place] [address] Signs Cleaner Internal Medicine 08/26/24 Wind Development Director Relationship Specialty Start Date End Date Jacinta Rivas MD [address] [place] [address] PCP - General Internal Medicine 02/03/19 Dena Lechuga, FE Specialty Production Line Welder Oncology 04/24/17 Jesus Carter MD [address] [facility] [place] [address] Physician Radiation Oncology 04/24/17 Taz Howard MD [address] [address] Home Care Provider Orthopedics 03/20/19 Taz Howard MD [address] [address] Referring Orthopedics 03/20/19 Eliz Bingham MD [address] [address] General Surgery 07/04/22 Ney Hart MD [address] [address] Gastroenterology 07/04/22 Mino Rosales LISW [address] [place] [address] Garbage Collector Hematology/Oncology 01/08/23 Tatianna Crook, [facility] [address] [place] [address] Pharmacist Pharmacy 07/18/23 Lisbet Pizano APRN.INDUCTION HEATING EQUIPMENT SETTER 1740 [facility] [place] [address] Signs Cleaner Internal Medicine 06/30/24 Cathy Burr APRN.FORM BLOCK MAKER [address] [facility] [place] [address] Signs Cleaner Internal Medicine 08/26/24 Wind Development Director Relationship Specialty Start Date End Date Jacinta Rivas MD [address] [place] [address] PCP - General Internal Medicine 02/03/19 Dena Lechuga RN Specialty Production Line Welder Oncology 04/24/17 Jesus Carter MD [address] [place] [address] Physician Radiation Oncology 04/24/17 Taz Howard MD [address] [address] Home Care Provider Orthopedics 03/20/19 Taz Howard MD [address] [address] Referring Orthopedics 03/20/19 Eliz Bingham MD [address] [address] General Surgery 07/04/22 Ney Hart MD [address] [address] [address] Gastroenterology 07/04/22 Mino Rosales LISW [address] [place] [address] Garbage Collector Hematology/Oncology 01/08/23 Tatianna Crook, [facility] [address] [place] [address] Pharmacist Pharmacy 07/18/23 Lisbet Pizano PLUMBING ASSEMBLER INSTALLER.INDUCTION HEATING EQUIPMENT SETTER [address] [place] [address] Signs Cleaner Internal Medicine 06/30/24 Cathy Burr APRN.FORM BLOCK MAKER [address] [place] [address] Signs Cleaner Internal Medicine 08/26/24 Wind Development Director Relationship Specialty Start Date End Date Jacinta Rivas MD [address] [place] [address] PCP - General Internal Medicine 02/03/19 Dena Lechuga, FE Specialty Production Line Welder Oncology 04/24/17 Jesus Carter MD [address] [place] [address] Physician Radiation Oncology 04/24/17 Taz Howard MD [address] [address] Home Care Provider Orthopedics 03/20/19 Taz Howard MD [address] [address] Referring Orthopedics 03/20/19 Eliz Bingham MD [address] [address] General Surgery 07/04/22 Ney Hart MD [address] [place] [place] [address] [place] [address] Gastroenterology 07/04/22 Mino Rosales LISW [address] [place] [address] Garbage Collector Hematology/Oncology 01/08/23 [facility] 1740 [facility] [place] [address] Pharmacist Pharmacy 07/18/23 Lisbet Pizano PLUMBING ASSEMBLER INSTALLER.INDUCTION HEATING EQUIPMENT SETTER [address] [place] [address] Signs Cleaner Internal Medicine 06/30/24 Cathy Burr, PLUMBING ASSEMBLER INSTALLER.FORM BLOCK MAKER [address] [place] [address] Signs Cleaner Internal Medicine 08/26/24 Wind Development Director Relationship Specialty Start Date End Date Jacinta Rivas MD [address] [place] [address] PCP - General Internal Medicine 02/03/19 Dena Lechuga, FE Specialty Production Line Welder Oncology 04/24/17 Jesus Carter MD [address] [place] [address] Physician Radiation Oncology 04/24/17 aTz Howard MD [address] [address] Home Care Provider Orthopedics 03/20/19 Taz Howard MD [address] [facility] [address] [place] [address] Referring Orthopedics 03/20/19 Eliz Bingham MD [address] [facility] [address] [place] [address] General Surgery 07/04/22 Ney Hart MD [address] [facility] 206 [place] [address] Gastroenterology 07/04/22 Mino Rosales LISW 721 [facility] [place] [address] Garbage Collector Hematology/Oncology 01/08/23 Tatianna Crook [facility] 1740 [facility] [place] [address] Pharmacist Pharmacy 07/18/23 Lisbet Pizano, PLUMBING ASSEMBLER INSTALLER.INDUCTION HEATING EQUIPMENT SETTER [address] [facility] [place] [address] Signs Cleaner Internal Medicine 06/30/24 Cathy Burr, FELICIA.FORM BLOCK MAKER [address] [facility] [place] [address] Signs Cleaner Internal Medicine 08/26/24 Wind Development Director Relationship Specialty Start Date End Date Jacinta Rivas MD [address] [facility] [place] [address] PCP - General Internal Medicine 02/03/19 Dena Lechuga, FE Specialty Production Line Welder Oncology 04/24/17 Jesus Carter MD [address] [address] Physician Radiation Oncology 04/24/17 Taz Howard MD [address] [facility] [address] [place] [address] Home Care Provider Orthopedics 03/20/19 Taz Howard MD [address] [facility] [address] [place] [address] Referring Orthopedics 03/20/19 Eliz Bingham MD [address] [facility] [address] [place] [address] General Surgery 07/04/22 Ney Hart MD [address] [address] Gastroenterology 07/04/22 Mino Rosales LISW 721 [facility] [place] [address] Garbage Collector Hematology/Oncology 01/08/23 Tatianna Crook, [facility] 1740 [facility] [place] [address] Pharmacist Pharmacy 07/18/23 Lisbet Pizano, PLUMBING ASSEMBLER INSTALLER.INDUCTION HEATING EQUIPMENT SETTER [address] [facility] [place] [address] Signs Cleaner Internal Medicine 06/30/24 Cathy Burr, PLUMBING ASSEMBLER INSTALLER.FORM BLOCK MAKER [address] [facility] [place] [address] Signs Cleaner Internal Medicine 08/26/24 Wind Development Director Relationship Specialty Start Date End Date Jacinta Rivas MD [address] [facility] [place] [address] PCP - General Internal Medicine 02/03/19 Dena Lechuga, RN Specialty Production Line Welder Oncology 04/24/17 Jesus Carter MD [address] [place] [address] Physician Radiation Oncology 04/24/17 Taz Howard MD [address] [address] Home Care Provider Orthopedics 03/20/19 Taz Howard MD [address] [address] Referring Orthopedics 03/20/19 Eliz Bingham MD [address] [address] General Surgery 07/04/22 Ney Hart MD [address] [address] Gastroenterology 07/04/22 Mino Rosales LISW [address] [place] [address] Garbage Collector Hematology/Oncology 01/08/23 MikecaTatianna poon, [facility] [address] [place] [address] Pharmacist Pharmacy 07/18/23 Lisbet Pizano APRN.INDUCTION HEATING EQUIPMENT SETTER [address] [place] [address] Signs Cleaner Internal Medicine 06/30/24 Cathy Burr APRN.FORM BLOCK MAKER [address] [place] [address] Signs Cleaner Internal Medicine 08/26/24 Wind Development Director Relationship Specialty Start Date End Date Jacinta Rivas MD [address] [place] [address] PCP - General Internal Medicine 02/03/19 Dena Lechuga, RN Specialty Production Line Welder Oncology 04/24/17 Jesus Carter MD [address] [place], [place] [address] Physician Radiation Oncology 04/24/17 Taz Howard MD [address] [facility] [address] [place] [address] Home Care Provider Orthopedics 03/20/19 Taz Howard MD [address] [facility] [address] [place] [address] Referring Orthopedics 03/20/19 Eliz Bingham MD [address] [facility] [address] [place] [address] General Surgery 07/04/22 Ney Hart MD [address] [address] Gastroenterology 07/04/22 Mino Rosales LISW [address] [place] [address] Garbage Collector Hematology/Oncology 01/08/23 Tatianna Crook, [facility] [address] [place], [place] [id number] Pharmacist Pharmacy 07/18/23 Lisbet Pizano APRN.INDUCTION HEATING EQUIPMENT SETTER [address] [place], [place] [id number] Signs Cleaner Internal Medicine 06/30/24 Cathy Burr APRN.FORM BLOCK MAKER [address] [place] [address] Signs Cleaner Internal Medicine 08/26/24 Wind Development Director Relationship Specialty Start Date End Date Jacinta Rivas MD [address] [place] [address] PCP - General Internal Medicine 02/03/19 Dena Lechuga, FE Specialty Production Line Welder Oncology 04/24/17 Jesus Carter MD [address] [facility] [place], [place] [address] Physician Radiation Oncology 04/24/17 Taz Howard MD [address] [address] Home Care Provider Orthopedics 03/20/19 Taz Howard MD [address] [address] Referring Orthopedics 03/20/19 Eliz Bingham MD [address] [address] General Surgery 07/04/22 Ney Hart MD [address] [facility] [address] [address] Gastroenterology 07/04/22 Mino Rosales LISW [address] [place] [address] Garbage Collector Hematology/Oncology 01/08/23 Tatianna Crook, [facility] [address] [place] [address] Pharmacist Pharmacy 07/18/23 iLsbet Pizano APRN.INDUCTION HEATING EQUIPMENT SETTER [address] [place], [place] [address]61 Signs Cleaner Internal Medicine 06/30/24 Cathy Burr APRN.FORM BLOCK MAKER [address] [place], [place] [address]34131 Signs Cleaner Internal Medicine 08/26/24 Wind Development Director Relationship Specialty Start Date End Date Jacinta Rivas MD [address] [place], [place] [address] PCP - General Internal Medicine 02/03/19 Dena Lechuga RN Specialty Production Line Welder Oncology 04/24/17 Jesus Carter MD [address] [place] [address] Physician Radiation Oncology 04/24/17 Taz Howard MD [address] [address] Home Care Provider Orthopedics 03/20/19 Taz Howard MD [address] [address] Referring Orthopedics 03/20/19 Eliz Bingham MD [address] [address] General Surgery 07/04/22 Ney Hart MD [address] [address] Gastroenterology 07/04/22 Mino Rosales LISW [address] [place] [address] Garbage Collector Hematology/Oncology 01/08/23 Tatianna Corok [facility] [address] [place] [address] Pharmacist Pharmacy 07/18/23 Lisbet Pizano PLUMBING ASSEMBLER INSTALLER.INDUCTION HEATING EQUIPMENT SETTER [address] [place] [address] Signs Cleaner Internal Medicine 06/30/24 Cathy Burr APRN.FORM BLOCK MAKER [address] [place] [address] Signs Cleaner Internal Medicine 08/26/24 Wind Development Director Relationship Specialty Start Date End Date Jacinta Rivas MD [address] [place] [address] PCP - General Internal Medicine 02/03/19 Dena Lechuga, FE Specialty Production Line Welder Oncology 04/24/17 Jesus Carter MD [address] [place] [address] Physician Radiation Oncology 04/24/17 Taz Howard MD [address] [address] Home Care Provider Orthopedics 03/20/19 Taz Howard MD [address] [address] Referring Orthopedics 03/20/19 Eliz Bingham MD [address] [address] General Surgery 07/04/22 Ney Hart MD [address] [address] Gastroenterology 07/04/22 Mino Rosales LISW [address] [place] [address] Garbage Collector Hematology/Oncology 01/08/23 [facility] [address] [place] [address] Pharmacist Pharmacy 07/18/23 Lisbet Pizano PLUMBING ASSEMBLER INSTALLER.INDUCTION HEATING EQUIPMENT SETTER [address] [facility] [place] [address] Signs Cleaner Internal Medicine 06/30/24 Cathy Burr, PLUMBING ASSEMBLER INSTALLER.FORM BLOCK MAKER [address] [facility] [place] [address] Signs Cleaner Internal Medicine 08/26/24 Wind Development Director Relationship Specialty Start Date End Date Jacinta Rivas MD [address] [place] [address] PCP - General Internal Medicine 02/03/19 Dena Lechuga, RN Specialty Production Line Welder Oncology 04/24/17 Jesus Carter MD [address] [place] [address] Physician Radiation Oncology 04/24/17 Taz Howard MD [address] [address] Home Care Provider Orthopedics 03/20/19 Taz Howard MD [address] [address] Referring Orthopedics 03/20/19 Eliz Bingham MD [address] [address] General Surgery 07/04/22 Ney Hart MD [address] [address] Gastroenterology 07/04/22 Mino Rosales LISW [address] [place] [address] Garbage Collector Hematology/Oncology 01/08/23 [facility] [address] [place] [address] Pharmacist Pharmacy 07/18/23 Lisbet Pizano APRN.INDUCTION HEATING EQUIPMENT SETTER [address] [place] [address] Signs Cleaner Internal Medicine 06/30/24 Cathy Burr APRN.FORM BLOCK MAKER [address] [place] [address] Signs Cleaner Internal Medicine 08/26/24 Wind Development Director Relationship Specialty Start Date End Date Jacinta Rivas MD [address] [place] [address] PCP - General Internal Medicine 02/03/19 Dena Lechuga, RN Specialty Production Line Welder Oncology 04/24/17 Jesus Carter MD [address] [place] [address] Physician Radiation Oncology 04/24/17 Taz Howard MD [address] [address] Home Care Provider Orthopedics 03/20/19 Taz Howard MD [address] [address] Referring Orthopedics 03/20/19 Eliz Bingham MD [address] [address] General Surgery 07/04/22 Ney Hart MD [address] [address] Gastroenterology 07/04/22 Mino Rosales LISW [address] [place] [address] Garbage Collector Hematology/Oncology 01/08/23 Tatianna Crook [facility] [address] [place] [address] Pharmacist Pharmacy 07/18/23 Lisbet Pizano APRN.INDUCTION HEATING EQUIPMENT SETTER [address] [place] [address] Signs Cleaner Internal Medicine 06/30/24 Cathy Burr APRN.FORM BLOCK MAKER [address] [place] [address] Signs Cleaner Internal Medicine 08/26/24 Wind Development Director Relationship Specialty Start Date End Date Jacinta Rivas MD [address] [place] [address] PCP - General Internal Medicine 02/03/19 Dena Lechuga, FE Specialty Production Line Welder Oncology 04/24/17 Jesus Carter MD [address] [place] [address] Physician Radiation Oncology 04/24/17 Taz Howard MD [address] [address] Home Care Provider Orthopedics 03/20/19 Taz Howard MD [address] [address] Referring Orthopedics 03/20/19 Eliz Bingham MD [address] [address] General Surgery 07/04/22 Ney Hart MD [address] [address] Gastroenterology 07/04/22 Mino Rosales LISW [address] [place] [address] Garbage Collector Hematology/Oncology 01/08/23 PaneccaTatianna poon, [facility] [address] [facility] [place] [address] Pharmacist Pharmacy 07/18/23 Lisbet Pizano APRN.INDUCTION HEATING EQUIPMENT SETTER [address] [facility] [place] [address] Signs Cleaner Internal Medicine 06/30/24 Cathy Burr APRN.FORM BLOCK MAKER [address] [place] [address] Signs Cleaner Internal Medicine 08/26/24 Team Status: Active Member [...] November 02, 2024 End: November 02, 2024 Wind Development Director Relationship Specialty Start Date End Date Jacinta Rivas MD [address] [place] [address] PCP - General Internal Medicine 02/03/19 Dena Lechuga RN Specialty Production Line Welder Oncology 04/24/17 Jesus Carter MD [address] [place] [address] Physician Radiation Oncology 04/24/17 Taz Howard MD [address] [address] Home Care Provider Orthopedics 03/20/19 Taz Howard MD [address] [address] Referring Orthopedics 03/20/19 Eliz Bingham MD [address] [address] General Surgery 07/04/22 Ney Hart MD [address] [facility] [address] [place] [address] Gastroenterology 07/04/22 Ejchelsea MinoBESSY escamilla [address] [facility] [place] [address] Garbage Collector Hematology/Oncology 01/08/23 Tatianna Crook, [facility] [address] [facility] [place] [address] Pharmacist Pharmacy 07/18/23 Lisbet Pizano APRN.INDUCTION HEATING EQUIPMENT SETTER [address] [place] [address] Signs Cleaner Internal Medicine 06/30/24 Cathy Burr APRN.FORM BLOCK MAKER [address] [facility] [place] [address] Signs Cleaner Internal Medicine 08/26/24 Team Status: Active Member Role/Relationship Status Dates Dr. Jacinta Rivas MD Primary Care Provider Active Start: November 15, 2024 Dr. Tyson Doherty DO Emergency Provider Active Start: November 15, 2024 Dr. Meri Vu MD Admit Provider Active St art: November 15, 2024 Dr. Meri Vu MD Attending Provider Active Start: November 15, 2024 Dr. Meri Vu MD Other Provider Active St art: November 15, 2024 Team Status: Inactive Member Role/Relationship Status Dates Dr. Jacinta Rivas MD Primary Care Provider Active Start: November 15, 2024 End: November 18, 2024 Dr. Tyson Doherty DO Emergency Provider Active Start: November 15, 2024 End: November 18, 2024 Dr. Meri Vu MD Admit Provider Active St art: November 15, 2024 End: November 18, 2024 Dr. Meri Vu MD Other Provider Active St art: November 15, 2024 End: November 18, 2024 Dr. William Minaya MD Attending Provider Active Start: November 15, 2024 End: November 18, 2024 Dr. Annabel Carter DO Other Provider Active Sta rt: November 15, 2024 End: November 18, 2024 Team Status: Active Member Role/Relationship Status Dates Dr. Jacinta Rivas MD Primary Care Provider Active Start: November 16, 2024 Dr. Tyson Doherty DO Emergency Provider Active Start: November 16, 2024 Dr. Meri Vu MD Admit Provider Active St art: November 16, 2024 Dr. Meri Vu MD Other Provider Active St art: November 16, 2024 Dr. William Minaya MD Attending Provider Active Start: November 16, 2024 Dr. William Minaya MD Other Provider Active Start: November 16, 2024 Team Status: Active Member Role/Relationship Status Dates Dr. Jacinta Rivas MD Primary Care Provider Active Start: November 17, 2024 Dr. Tyson Doherty DO Emergency Provider Active Start: November 17, 2024 Dr. Meri Vu MD Admit Provider Active St art: November 17, 2024 Dr. Meri Vu MD Other Provider Active St art: November 17, 2024 Dr. William Minaya MD Attending Provider Active Start: November 17, 2024 Dr. William Minaya MD Other Provider Active Start: November 17, 2024 Wind Development Director Relationship Specialty Start Date End Date Jacinta Rivas MD [address] [place] [address] PCP - General Internal Medicine 02/03/19 Dena Lechuga RN Specialty Production Line Welder Oncology 04/24/17 Jesus Carter MD [address] [place], [place] [address] Physician Radiation Oncology 04/24/17 Taz Howard MD [address] [facility] [address] [place] [address] Home Care Provider Orthopedics 03/20/19 Taz Howard MD [address] [facility] [address] [place] [address] Referring Orthopedics 03/20/19 Eliz Bingham MD [address] [facility] [address] [place] [address] General Surgery 07/04/22 Ney Hart MD [address] [facility] [address] [place] [address] Gastroenterology 07/04/22 Mino Rosales LISW [address] [facility] [place] [address] Garbage Collector Hematology/Oncology 01/08/23 [facility] [address] [place] [address] Pharmacist Pharmacy 07/18/23 Lisbet Pizano PLUMBING ASSEMBLER INSTALLER.INDUCTION HEATING EQUIPMENT SETTER [address] [place] [address] Signs Cleaner Internal Medicine 06/30/24 Cathy Burr APRN.FORM BLOCK MAKER [address] [place] [address] Signs Cleaner Internal Medicine 08/26/24 Wind Development Director Relationship Specialty Start Date End Date Jacinta Rivas MD [address] [place] [address] PCP - General Internal Medicine 02/03/19 Dena Lechuga, RN Specialty Production Line Welder Oncology 04/24/17 Jesus Carter MD [address] [facility] [place] [address] Physician Radiation Oncology 04/24/17 Taz Howard MD [address] [address] Home Care Provider Orthopedics 03/20/19 Taz Howard MD [address] [address] Referring Orthopedics 03/20/19 Eliz Bingham MD [address] [address] General Surgery 07/04/22 Ney Hart MD [address] [facility] [address] [address] Gastroenterology 07/04/22 Mino Rosales LISW [address] [place] [address] Garbage Collector Hematology/Oncology 01/08/23 Tatianna Crook [facility] [address] [place] [address] Pharmacist Pharmacy 07/18/23 Lisbet Pizano, PLUMBING ASSEMBLER INSTALLER.INDUCTION HEATING EQUIPMENT SETTER [address] [place] [address] Signs Cleaner Internal Medicine 06/30/24 Cathy Burr, PLUMBING ASSEMBLER INSTALLER.FORM BLOCK MAKER [address] [place] [address] Signs Cleaner Internal Medicine 08/26/24 Wind Development Director Relationship Specialty Start Date End Date Jacinta Rivas MD [address] [place] [address] PCP - General Internal Medicine 02/03/19 Dena Lechuga, RN Specialty Production Line Welder Oncology 04/24/17 Jesus Carter MD [address] [place] [address] Physician Radiation Oncology 04/24/17 Taz Howard MD [address] [address] Home Care Provider Orthopedics 03/20/19 Taz Howard MD [address] [address] Referring Orthopedics 03/20/19 Eliz Bingham MD [address] [address] General Surgery 07/04/22 Ney Hart MD [address] [address] Gastroenterology 07/04/22 Mino Rosales LISW [address] [place] [address] Garbage Collector Hematology/Oncology 01/08/23 Tatianna Crook [facility] [address] [place] [address] Pharmacist Pharmacy 07/18/23 Lisbet Pizano APRN.INDUCTION HEATING EQUIPMENT SETTER [address] [place] [address] Signs Cleaner Internal Medicine 06/30/24 Cathy Burr APRN.FORM BLOCK MAKER [address] [place] [address] Signs Cleaner Internal Medicine 08/26/24 Wind Development Director Relationship Specialty Start Date End Date Jacinta Rivas MD [address] [place] [address] PCP - General Internal Medicine 02/03/19 Dena Lechuga, RN Specialty Production Line Welder Oncology 04/24/17 Jesus Carter MD [address] [place] [address] Physician Radiation Oncology 04/24/17 Taz Howard MD [address] [address] Home Care Provider Orthopedics 03/20/19 Taz Howard MD [address] [address] Referring Orthopedics 03/20/19 Eliz Bingham MD [address] [address] General Surgery 07/04/22 Ney Hart MD [address] [address] Gastroenterology 07/04/22 Mino Rosales LISW [address] [place] [address] Garbage Collector Hematology/Oncology 01/08/23 Tatianna Crook [facility] [address] [place] [address] Pharmacist Pharmacy 07/18/23 Lisbet Pizano APRN.INDUCTION HEATING EQUIPMENT SETTER [address] [place], [place] [address] Signs Cleaner Internal Medicine 06/30/24 Cathy Burr APRN.FORM BLOCK MAKER [address] [place] [address] Signs Cleaner Internal Medicine 08/26/24 Wind Development Director Relationship Specialty Start Date End Date Jacinta Rivas MD [address] [place] [address] PCP - General Internal Medicine 02/03/19 Dena Lechuga, FE Specialty Production Line Welder Oncology 04/24/17 Jesus Carter MD [address] [place] [address] Physician Radiation Oncology 04/24/17 Taz Howard MD [address] [address] Home Care Provider Orthopedics 03/20/19 Taz Howard MD [address] [address] Referring Orthopedics 03/20/19 Eliz Bingham MD [address] [address] General Surgery 07/04/22 Ney Hart MD [address] [facility] [address] [address] Gastroenterology 07/04/22 Mino Rosales LISW [address] [place] [address] Garbage Collector Hematology/Oncology 01/08/23 Tatianna Crook, [facility] [address] [place] [address] Pharmacist Pharmacy 07/18/23 Lisbet Pizano APRN.INDUCTION HEATING EQUIPMENT SETTER [address] [place] [address] Signs Cleaner Internal Medicine 06/30/24 Cathy Burr, FELICIA.FORM BLOCK MAKER [address] [place] [address] Signs Cleaner Internal Medicine 08/26/24 Wind Development Director Relationship Specialty Start Date End Date Jacinta Rivas MD [address] [place] [address] PCP - General Internal Medicine 02/03/19 Dena Lechuga RN Specialty Production Line Welder Oncology 04/24/17 Jesus Carter MD [address] [place] [address] Physician Radiation Oncology 04/24/17 Taz Howard MD [address] [address] Home Care Provider Orthopedics 03/20/19 Taz Howard MD [address] [address] Referring Orthopedics 03/20/19 Eliz Bingham MD [address] [address] General Surgery 07/04/22 Ney Hart MD [address] [address] Gastroenterology 07/04/22 Mino Rosales LISW [address] [place] [address] Garbage Collector Hematology/Oncology 01/08/23 Ambreen Tatianna, [facility] [address] [place] [address] Pharmacist Pharmacy 07/18/23 Lisbet Pizano APRN.INDUCTION HEATING EQUIPMENT SETTER [address] [place] [address] Signs Cleaner Internal Medicine 06/30/24 Cathy Burr APRN.FORM BLOCK MAKER [address] [place] [address] Signs Cleaner Internal Medicine 08/26/24 Wind Development Director Relationship Specialty Start Date End Date Jacinta Rivas MD [address] [place] [address] PCP - General Internal Medicine 02/03/19 Dena Lechuga, FE Specialty Production Line Welder Oncology 04/24/17 Jesus Carter MD [address] [place], [place] [address] Physician Radiation Oncology 04/24/17 Taz Howard MD [address] [address] Home Care Provider Orthopedics 03/20/19 Taz Howard MD [address] [address] Referring Orthopedics 03/20/19 Eliz Bingham MD [address] [place] [address] General Surgery 07/04/22 Ney Hart MD [address] [facility] [facility] 206 [place] [address] Gastroenterology 07/04/22 Mino Rosales LISW 721 [facility] [place] [address] Garbage Collector Hematology/Oncology 01/08/23 Tatianna Crook, [facility] [address] [facility] [place] [address] Pharmacist Pharmacy 07/18/23 Lisbet Pizano, PLUMBING ASSEMBLER INSTALLER.INDUCTION HEATING EQUIPMENT SETTER [address] [facility] [place] [address] Signs Cleaner Internal Medicine 06/30/24 Cathy Burr, PLUMBING ASSEMBLER INSTALLER.FORM BLOCK MAKER [address] [facility] [place] [address] Signs Cleaner Internal Medicine 08/26/24 Wind Development Director Relationship Specialty Start Date End Date Jaicnta Rivas MD [address] [place] [address] PCP - General Internal Medicine 02/03/19 Dena Lechuga, FE Specialty Production Line Welder Oncology 04/24/17 Jesus Carter MD [address] [place] [address] Physician Radiation Oncology 04/24/17 Taz Howard MD [address] [address] Home Care Provider Orthopedics 03/20/19 Taz Howard MD [address] [facility] [address] [place] [address] Referring Orthopedics 03/20/19 Eliz Bingham MD [address] [facility] [address] [place] [address] General Surgery 07/04/22 Ney Hart MD [address] [facility] 206 [place] [address] Gastroenterology 07/04/22 Mino Rosales LISW [address]21 [facility] [place] [address] Garbage Collector Hematology/Oncology 01/08/23 Tatianna Crook [facility] [address] [facility] [place] [address] Pharmacist Pharmacy 07/18/23 Lisbet Pizano, PLUMBING ASSEMBLER INSTALLER.INDUCTION HEATING EQUIPMENT SETTER [address] [facility] [place] [address] Signs Cleaner Internal Medicine 06/30/24 Cathy Burr, FELICIA.FORM BLOCK MAKER [address] [facility] [place] [address] Signs Cleaner Internal Medicine 08/26/24 Wind Development Director Relationship Specialty Start Date End Date Jacinta Rivas MD [address] [facility] [place] [address] PCP - General Internal Medicine 02/03/19 Dena Lechuga, FE Specialty Production Line Welder Oncology 04/24/17 Jesus Carter MD [address] [place] [address] Physician Radiation Oncology 04/24/17 Taz Howard MD [address] [facility] [address] [place] [address] Home Care Provider Orthopedics 03/20/19 Taz Howard MD [address] [facility] [address] [place] [address] Referring Orthopedics 03/20/19 Eliz Bingham MD [address] [facility] [address] [place] [address] General Surgery 07/04/22 Ney Hart MD [address] [address] Gastroenterology 07/04/22 Mino Rosales LISW [address] [facility] [place] [address] Garbage Collector Hematology/Oncology 01/08/23 Tatianna Crook, [facility] [address] [facility] [place] [address] Pharmacist Pharmacy 07/18/23 Lisbet Pizano, PLUMBING ASSEMBLER INSTALLER.INDUCTION HEATING EQUIPMENT SETTER [address] [facility] [place] [address] Signs Cleaner Internal Medicine 06/30/24 Cathy Burr, PLUMBING ASSEMBLER INSTALLER.FORM BLOCK MAKER [address] [facility] [place] [address] Signs Cleaner Internal Medicine 08/26/24 Wind Development Director Relationship Specialty Start Date End Date Jacinta Rivas MD [address] [facility] [place] [address] PCP - General Internal Medicine 02/03/19 Dena Lechuga, RN Specialty Production Line Welder Oncology 04/24/17 Jesus Carter MD [address] [place] [address] Physician Radiation Oncology 04/24/17 Taz Howard MD [address] [address] Home Care Provider Orthopedics 03/20/19 Taz Howard MD [address] [address] Referring Orthopedics 03/20/19 Eliz Bingham MD [address] [address] General Surgery 07/04/22 Ney Hart MD [address] [address] Gastroenterology 07/04/22 Mino Rosales LISW [address] [place] [address] Garbage Collector Hematology/Oncology 01/08/23 Tatianna Crook, [facility] [address] [place] [address] Pharmacist Pharmacy 07/18/23 Lisbet Pizano, PLUMBING ASSEMBLER INSTALLER.INDUCTION HEATING EQUIPMENT SETTER [address] [place] [address] Signs Cleaner Internal Medicine 06/30/24 Cathy Burr, FELICIA.FORM BLOCK MAKER [address] [place] [address] Signs Cleaner Internal Medicine 08/26/24 Wind Development Director Relationship Specialty Start Date End Date Jacinta Rivas MD [address] [place] [address] PCP - General Internal Medicine 02/03/19 Dena Lechuga, RN Specialty Production Line Welder Oncology 04/24/17 Jesus Carter MD [address] [place] [address] Physician Radiation Oncology 04/24/17 Taz Howard MD [address] [facility] [address] [place] [address] Home Care Provider Orthopedics 03/20/19 Taz Howard MD [address] [facility] [address] [place] [address] Referring Orthopedics 03/20/19 Eliz Bingham MD [address] [facility] [address] [place] [address] General Surgery 07/04/22 Ney Hart MD [address] [address] Gastroenterology 07/04/22 Mino Rosales LISW [address] [place] [address] Garbage Collector Hematology/Oncology 01/08/23 Tatianna Crook, [facility] [address] [place] [address] Pharmacist Pharmacy 07/18/23 Lisbet Pizano APRN.INDUCTION HEATING EQUIPMENT SETTER [address] [place] [address] Signs Cleaner Internal Medicine 06/30/24 Cathy Burr, PLUMBING ASSEMBLER INSTALLER.FORM BLOCK MAKER [address] [place] [address] [facility] Internal Medicine 08/26/24 Team Status: Active Member Role/Relationship Status Dates Dr. Jacinta Rivas MD Primary care physician Active Team Status: Inactive Member Role/Relationship Status Dates Dr. Jacinta Rivas MD Primary care physician Active Start: November 02, 2024 End: November 02, 2024 Dr. Jacinta Rivas MD Referring Provider Active Start: November 02, 2024 End: November 02, 2024 RUSSELL Lr Attending physician Active S tart: November 02, 2024 End: November 02, 2024 Team Status: Inactive Member Role/Relationship Status Dates Dr. Jacinta Rivas MD Primary care physician Active Start: November 15, 2024 End: November 18, 2024 Dr. Tyson Doherty , Emergency Departm ent Physician Active Start: November 15, 2024 End: November 18, 2024 Dr. Meri Vu MD Admitting physician Active Start: November 15, 2024 End: November 18, 2024 Dr. Meri Vu MD Nurse Practitioner Active Start: November 15, 2024 End: November 18, 2024 Dr. William Minaya MD Attending physician Active Start: November 15, 2024 End: November 18, 2024 Dr. Annabel Carter DO Nurse Practitioner Active Start: November 15, 2024 End: November 18, 2024 Team Status: Active Member Role/Relationship Status Dates Dr. Jacinta Rivas MD Primary care physician Active Start: November 16, 2024 Dr. Tyson Doherty DO Emergency Departm ent Physician Active Start: November 16, 2024 Dr. Meri Vu MD Admitting physician Active Start: November 16, 2024 Dr. Meri Vu MD Nurse Practitioner Active Start: November 16, 2024 Dr. William Minaya MD Attending physician Active Start: November 16, 2024 Dr. William Minaya MD Nurse Practitioner Active Start: November 16, 2024 Team Status: Active Member Role/Relationship Status Dates Dr. Jacinta Rivas MD Primary care physician Active Start: November 17, 2024 Dr. Tyson Doherty DO Emergency Departm ent Physician Active Start: November 17, 2024 Dr. Meri Vu MD Admitting physician Active Start: November 17, 2024 Dr. Mrei Vu MD Nurse Practitioner Active Start: November 17, 2024 Dr. William Minaya MD Attending physician Active Start: November 17, 2024 Dr. William Minaya MD Nurse Practitioner Active Start: November 17, 2024 Team Status: Active Member Role/Relationship Status Dates Dr. Jacinta Rivas MD Primary care physician Active Start: November 18, 2024 Dr. Tyson Doherty DO Emergency Depart ent Physician Active Start: November 18, 2024 Dr. Meri Vu MD Admitting physician Active Start: November 18, 2024 Dr. Meri Vu MD Nurse Practitioner Active Start: November 18, 2024 Dr. William Minaya MD Attending physician Active Start: November 18, 2024 Dr. William Minaya MD Nurse Practitioner Active Start: November 18, 2024 Dr. Annabel Carter DO Nurse Practitioner Active Start: November 18, 2024 Team Status: Active Member Role/Relationship Status Dates Dr. Jacinta Rivas MD Primary care physician Active Start: December 10, 2024 RUSSELL Lr Attending physician Active S tart: December 10, 2024 RUSSELL Lr Referring Provider Active St art: December 10, 2024 Team Status: Active Member Role/Relationship Status Dates Dr. Jacinta Rivas MD Primary care physician Active Start: December 10, 2024 Dr. Andrea Peace MD Attending physician Active Start: December 10, 2024 Pauloalis Salazar , PA Referring Provider Active St art: December 10, 2024 Team Status: Inactive Member Role/Relationship Status Dates Dr. Jacinta Rivas MD Primary care physician Active Start: December 15, 2024 End: December 15, 2024 RUSSELL Lr Attending physician Active S tart: December 15, 2024 End: December 15, 2024 RUSSELL Lr Referring Provider Active St art: December 15, 2024 End: December 15, 2024 Team Status: Active Member Role/Relationship Status Dates Dr. Jacinta Rivas MD Primary care physician Active Start: December 15, 2024 Dr. Andrea Peace MD Attending physician Active Start: December 15, 2024 Reason for Visit (unrecogniz ed section and content) Reason Comments Anemia Specialty Diagnoses / Procedures Referred By Contac t Referred To Contact Diagnoses Iron malabsorption (HCC) Anemia in stage 3b chronic kidney disease (HCC) Serena Carrasco DO [address] [facility] [place] [address] Phone: tel: fax: Hematology/Oncology [address] [place] [address] Phone: tel: fax: Referral ID Status Reason Start Date Expiration Date V isits Requested Visits Authorized [id number] Authorized 12/09/2024 03/09/2025 99 99 Reason Comments Physical Therapy Specialty Diagnoses / Procedures Referred By Contac t Referred To Contact [facility] Diagnoses History of breast cancer S/P breast reconstruction Seroma of breast Procedures CONSULT TO BREAST REHAB PROGRAM PHYSICAL THERAPY EVALUATION HIGH COMPLEX 45 MINS OCCUPATIONAL THERAPY EVAL HIGH COMPLEX 60 MINS Micki Butler APRN.INDUCTION HEATING EQUIPMENT SETTER [address] [place] [address] Phone: tel: fax: [facility] [address] [place] [address] Referral ID Status Reason Start Date Expiration Date Visits Requested Visits Authorized [id number] Authorized PCP Requested Referral Auto-Generate d Referral 04/08/2024 04/07/2025 99 99 Reason Comments PT Progress Note Specialty Diagnoses / Procedures Referred By Contac t Referred To Contact [facility] Diagnoses Malignant neoplasm of lower-outer quadrant of left breast of female, estrogen receptor positive (HCC) Lymphedema of left arm Procedures CONSULT TO LYMPHEDEMA THERAPY OFFICE/OUTPATIENT NEW HIGH MDM 60 MINUTES Serena Carrasco DO [address] [place] [address] [facility] [address] [place] [address] Referral ID Status Reason Start Date Expiration Date Visits Requested Visits Authorized [id number] Authorized Auto-Generat ed Referral 04/13/2024 04/13/2025 99 99 Reason Comments Established Patient Reason Comments Non-Chemotherapy Treatment Specialty Diagnoses / Procedures Referred By [facility] Referred To Contact Diagnoses Malignant neoplasm of left breast in female, estrogen receptor positive, unspecified site of breast (HCC) C50.912,Z17.0 (ICD-10-CM) - Malignant neoplasm of left breast in female, estrogen receptor positive, unspecified site of breast (HCC) Procedures INJECTION, ZOLEDRONIC ACID, 1 MG BONE MODIFYING AGENT: $ - Q6 MONTHS IF CRCL IS GREATER THAN 30 ML/MIN Serena Carrasco DO [address] [place] [address] [facility] [address] [place] [address] Referral ID Status Reason Start Date Expiration Date V isits Requested Visits Authorized [id number] Authorized 03/01/2020 08/03/2022 99 99 Reason Comments Nutrition Assessment Reason Comments Refill Request Reason Comments Covid19 Concern Reason Comments Follow Up Specialty Diagnoses / Procedures Referred By [facility] Referred To Contact Diagnoses Malignant neoplasm of left breast in female, estrogen receptor positive, unspecified site of breast (HCC) C50.912,Z17.0 (ICD-10-CM) - Malignant neoplasm of left breast in female, estrogen receptor positive, unspecified site of breast (HCC) Procedures INJECTION, ZOLEDRONIC ACID, 1 MG BONE MODIFYING AGENT: $ - Q6 MONTHS IF CRCL IS GREATER THAN 30 ML/MIN Serena Carrasco DO [address] [place] [address] [facility] [address] [place] [address] Reason Comments UTI Frequency, burning x 5 days Reason Comments Results Reason Comments Wellness Reason Comments Patient Question Reason Comments Established Patient Hip Replacement Follow Up Pain Reason Comments Medication Request Reason Comments Appointment DR Bingham Reason Comments New Patient Specialty Diagnoses / Procedures [facility] To Contact MR IMAGING Diagnoses Malignant neoplasm of overlapping sites of left breast in female, estrogen receptor positive (HCC) 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) Procedures MRI BRAIN WO/W IVCON MRI BRAIN BRAIN STEM W/O W/CONTRAST MATERIAL Serena Carrasco, DO [address] [facility] [place] [address] Mr Imaging Referral ID Status Reason Start Date Expiration Date V isits Requested Visits Authorized [id number] Closed Auto-Generate d Referral 07/26/2022 08/25/2023 1 1 Reason Comments Established Patient regroup Reason Comments Bronchoscopy Scheduling Reason Comments Anesthesia Consult Reason Comments Appointment Reason Comments Results Post bronchoscopy no te Specialty Diagnoses / Procedures [facility] Referred To Contact MR IMAGING Diagnoses Malignant neoplasm of lower-outer quadrant of left breast of female, estrogen receptor positive (HCC) Procedures MRI BREAST WO/W IVCON BILATERAL MRI BREAST WITHOUT&WITH CONTRAST W/[place] [address] [place] [address] Mr Imaging Referral ID Status Reason Start Date Expiration Date V isits Requested Visits Authorized [id number] Closed Auto-Generate d Referral 08/01/2022 08/31/2023 1 1 Reason Comments Imm/Inj Specialty Diagnoses / Procedures [facility] Referred To Contact Diagnoses Malignant neoplasm of lower-outer quadrant of left breast of female, estrogen receptor positive (HCC) 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) Procedures INJECTION, FULVESTRANT (TEVA) NOT THERAPEUTICALLY EQUIVALENT TO J9395, 25 MG Serena Carrasco, DO [address] [place] [address] [facility] [address] [place] [address] Referral ID Status Reason Start Date Expiration Date V isits Requested Visits Authorized [id number] Authorized 08/03/2022 08/03/2023 16 16 Reason Onset Date Comments SPP Oral Oncology/hematology - Treatment Referra l 08/16/2022 Verzenio Reason Onset Date Comments Refill Request 08/17/2022 Reason Comments AVS 08/16/22 Question Reason Comments Results Mild increase in ser um Cr and BUN Specialty Diagnoses / Procedures Referred By Contac t Referred To Contact Diagnoses Malignant neoplasm of lower-outer quadrant of left breast of female, estrogen receptor positive (HCC) 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) Procedures INJECTION, FULVESTRANT (TEVA) NOT THERAPEUTICALLY EQUIVALENT TO J9395, 25 MG Serena Carrasco, DO [address] [facility] [place] [address] [facility] [address] [place] [address] Reason Comments Results UA Reason Comments HYDRATION [...] Date Comments Refill Request 11/06/2022 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 Education/Follow-up Reason Comments EKG Specialty Diagnoses / Procedures [facility] Referred To Contact [facility] Diagnoses Malignant neoplasm of lower-outer quadrant of left breast of female, estrogen receptor positive (HCC) 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) Procedures ECG COMPLETE ECG ROUTINE ECG W/LEAST 12 LDS W/I&R Serena Carrasco, DO [address] [place] [address] [facility] [address] [place] [address] Referral ID Status Reason Start Date Expiration Date V isits Requested Visits Authorized [id number] Closed Auto-Generate d Referral 11/01/2022 11/01/2023 1 1 Specialty Diagnoses / Procedures Referred By Contac t Referred To Contact [facility] Diagnoses 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) Procedures ECG COMPLETE ECG ROUTINE ECG W/LEAST 12 LDS W/I&R Serena Carrasco, DO [address] [place] [address] [facility] [address] [place] [address] Referral ID Status Reason Start Date Expiration Date Visits Requested Visits Authorized [id number] Authorized Auto-Generat ed Referral 11/28/2022 11/28/2023 2 2 Referral ID Status Reason Start Date Expiration Date V isits Requested Visits Authorized [id number] Authorized 03/01/2020 04/07/2023 99 99 Reason Comments [...] 25 MG Serena Carrasco, DO [address] [place] [address] [facility] [address] [place] [address] Reason Comments 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 Appointment Reason Comments Research CTD CTD Reason Comments Care Coordination Follow Up Note Reason Onset Date Comments Refill Request 05/24/2023 Reason Comments Future Appointment Reason Comments Urinary Problem Possible uti, freque ncy x 1 week Reason Comments PT Eval Specialty Diagnoses / Procedures Referred By Contac [...] 60 MINUTES Serena Carrasco, DO [address] [place] [address] [facility] [address] [place] [address] Referral ID Status Reason Start Date Expiration Date V isits Requested Visits Authorized [id number] Closed Auto-Generate d Referral 06/03/2023 06/02/2024 1 1 Reason Comments Diabetes Reason Comments Established Patient Specialty Diagnoses / Procedures Referred By Contac t Referred To Contact Radiology / RADIO PET CT [facility] [place] Diagnoses Malignant neoplasm of lower-outer quadrant of left breast of female, estrogen receptor positive (HCC) [C50.512, Z17.0] Procedures INJECTION PET CT Serena Carrasco, DO [address] [place] [address] Mobile [facility] [address] [place] [address] Referral ID Status Reason Start Date Expiration Date Visits Re quested Visits Authorized [id number] Closed 08/12/2023 11/10/2023 1 1 Reason Comments [...] BASE MID-THIGH Serena Carrasco, DO [address] [place] [address] Molecular & Functional Imaging [address] [place] [address] Referral ID Status Reason Start Date Expiration Date V isits Requested Visits Authorized [id number] Closed Auto-Generate d Referral 08/16/2023 09/14/2023 2 [...] Refill Request 12/11/2023 Reason Comments 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 Comments Pain X6 months Reason Onset Date Comments Refill Request 01/22/2024 Reason Comments Med Change Request Reason Comments type 2 diabetes Specialty Diagnoses / Procedures Referred By Contac t Referred To Contact Endocrinology Diagnoses Type 2 diabetes mellitus with other specified complication, without long-term current use of insulin (HCC) Procedures CONSULT TO ENDOCRINOLOGY OFFICE/OUTPATIENT NEW HIGH MDM 60 MINUTES Serena Carrasco, DO [address] [place] [address] Referral ID Status Reason Start Date Expiration Date V isits Requested Visits Authorized [id number] Closed PCP Requested Referral 01/06/2024 01/05/2025 1 1 Specialty Diagnoses / Procedures [facility] Referred To Contact MR IMAGING Diagnoses Malignant neoplasm of lower-outer quadrant of left breast of female, estrogen receptor positive (HCC) Procedures MRI BREAST WO/W IVCON BILATERAL MRI BREAST WITHOUT&WITH CONTRAST W/[place] [address] [place] [address] [place] [address] Referral ID Status Reason Start Date Expiration Date V isits Requested Visits Authorized [id number] Closed Auto-Generate d Referral 02/05/2024 03/05/2024 1 1 Reason Comments Consult Breast Reconstructio n Reason Comments PHOTOS TAKEN Reason Comments Radiology Mammogram Specialty Diagnoses / Procedures [facility] Referred To Contact BR IMAGING Diagnoses Malignant neoplasm of lower-outer quadrant of left breast of female, estrogen receptor positive (HCC) Procedures [facility] DIAGNOSTIC RIGHT DIAGNOSTIC MAMMOGRAPHY COMPUTER-[place] [address] [place] [address] Br Imaging [address] [place] [address] Referral ID Status Reason Start Date Expiration Date V isits Requested Visits Authorized [id number] Closed Auto-Generate d Referral 02/27/2024 03/28/2025 1 1 Specialty Diagnoses / Procedures [facility] Referred To Contact MOLECULAR [...] BASE MID-THIGH Serena Carrasco, DO [address] [place] [address] Molecular & Functional Imaging [address] [place] [address] Referral ID Status Reason Start Date Expiration Date V isits Requested Visits Authorized [id number] Closed Auto-Generate d Referral 01/06/2024 02/04/2025 1 1 Reason Comments Schedule Surgery Specialty Diagnoses / Procedures Referred By Parmjit t Referred To Contact Diagnoses Malignant neoplasm of left breast in female, estrogen receptor positive, unspecified site of breast (HCC) Serena Carrasco, DO [address] [place] [address] [facility] [address] [place] [address] Referral ID Status Reason Start Date Expiration Date V isits Requested Visits Authorized [id number] Authorized 04/10/2024 07/09/2024 99 99 Reason Comments [...] BASE MID-THIGH Serena Carrasco, DO [address] [place] [address] Phone: tel: fax: Molecular Imaging [address] [place] [address] Phone: tel: Referral ID Status Reason Start Date Expiration Date V isits Requested Visits Authorized [id number] Closed Auto-Generate d Referral 04/13/2024 05/13/2025 1 1 Reason Comments Post Op Left Breast Total ca psulectomy and implant removal Reason Comments Orders Reason Comments Radiology US Specialty Diagnoses / Procedures [facility] Referred To Contact US IMAGING Diagnoses Thyroid nodule Procedures US THYROID/PARATHYROID US SOFT TISSUE HEAD & NECK REAL TIME IMGE DOCM Serena Carrasco, DO [address] [place] [address] Phone: tel: fax: [place] [address] Referral ID Status Reason Start Date Expiration Date V isits Requested Visits Authorized [id number] Closed Auto-Generate d Referral 07/03/2024 08/02/2025 1 [...] NM Specialty Diagnoses / Procedures [facility] Referred To Contact MOLECULAR & FUNCTIONAL IMAGING Diagnoses Malignant neoplasm of left breast in female, estrogen receptor positive, unspecified site of breast (HCC) 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) Procedures NM PET/CT SKULL-THIGH SUBSEQUENT PET IMAGING CT ATTENUATION SKULL BASE MID-THIGH Serena Carrasco, DO [address] [place] [address] Phone: tel: fax: Molecular Imaging [address] [place], [place] [address] Phone: tel: Referral ID Status Reason Start Date Expiration Date V isits Requested Visits Authorized [id number] Closed Auto-Generate d Referral 07/09/2024 08/08/2025 1 1 Reason Comments Insurance Authorization Approval - guillermo patide (MOUNJARO) 2.5 mg/0.5 mL pen injector [...] to mediastinal lymph node (HCC) Serena Carrasco, [address] [place] [address] Phone: tel: fax: Hematology/Oncology [address] [place] [address] Phone: tel: fax: Referral ID Status Reason Start Date Expiration Date V isits Requested Visits Authorized [id number] Authorized 11/04/2024 02/02/2025 99 99 Reason Comments Follow Up Malignant neoplasm of left breast in fem nicolette, estrogen recept Reason Comments avs 11/20 Reason Comments Blood Draw (CVAD) Reason Onset Date Comments Refill Request 11/30/2024 Specialty Diagnoses / Procedures Referred By Contac t Referred To Contact [facility] Diagnoses History of breast cancer S/P breast reconstruction Seroma of breast Procedures PHYSICAL THERAPY EVALUATION HIGH COMPLEX 45 MINS OCCUPATIONAL THERAPY EVAL HIGH COMPLEX 60 MINS Micki Butler APRN.INDUCTION HEATING EQUIPMENT SETTER [address] [place] [address] Phone: tel: fax: [facility] [address] [place] [address] Reason Comments Results Follow Up Reason Comments Medical Nutrition Therapy Type 2 diabete s Specialty Diagnoses / Procedures Referred By Contac t Referred To Contact Endocrinology Diagnoses Diabetes mellitus treated with insulin (HCC) Procedures MEDICAL NUTRITION ASSMT&IVNTJ INDIV EACH 15 [place] MEDICAL NUTRITION ASSMT&IVNTJ INDIV EACH 15 [place] MEDICAL NUTRITION ASSMT&IVNTJ INDIV EACH 15 [place] MEDICAL NUTRITION ASSMT&IVNTJ INDIV EACH 15 [place] Volodymyr Daisy C, PLUMBING ASSEMBLER INSTALLER.INDUCTION HEATING EQUIPMENT SETTER [address] [place] [address] Phone: tel: fax: Referral ID Status Reason Start Date Expiration Date V isits Requested Visits Authorized [id number] Closed PCP Requested Referral 10/14/2024 10/14/2025 1 1 Reason Comments uti symptom Reason Comments Consult recurrent uti New patient here for recurrent UTI PVR 0ml she is on estrogen, exemestane, and everolimus. For breast cancer. 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) Procedures OFFICE/OUTPATIENT [facility] 60 MINUTES Cathy Burr, PLUMBING ASSEMBLER INSTALLER.FORM BLOCK MAKER [address] [place] [address] Phone: tel: fax: Referral ID Status Reason Start Date Expiration Date V isits Requested Visits Authorized [id number] Closed PCP Requested Referral 12/15/2024 12/15/2025 1 1 Reason Comments Surgery Goals (unrecognized section and content) Goals may [...] bottle (CANCELED) X (OR/PROCEDURE) PRN, Starting on Sat05/18/24 at 1130, Until Sat05/18/24 at 1304, Intraprocedure 1130 (Given - Provid [...] dose, Starting on Sat05/18/24 at 1250, Until Sat05/18/24 at 1404, Moderate [...] BE BASED ON THE PRIMARY CLINICAL RECORDS. [facility]. provides no warranty or guarantee of the accuracy or completeness of information in this document.
[2025-01-31] MEDS: 0.9% Normal Saline (1000mL) 1,000 ML 1000 ML IV (14:07)
[2025-01-31 14:11] LABS: Hematocrit 26.6 % (37-47); Hemoglobin 9.2 g/dL (12.0-15.0); Immature Granulocytes Count 0.090 X10^3/uL (0.0-0.0); Mean Corp Hgb Conc 34.6 g/dL (32-36); Mean Corpuscular Volume 82.9 fL (81-99); Mean Platelet Vol. 10.1 fl (6.2-12.0); NRBC Flagged by Analyzer 0 % (0-5); Platelet Count 146 K/mm3 (150-450); RBC Distribution Width CV 13.4 % (11.6-14.6); RBC Distribution Width SD 40.4 fl (35.1-43.9); Red Blood Count 3.21 M/mm3 (4.2-5.4); White Blood Count 14.2 K/mm3 (4.4-11.0)
[2025-01-31 14:55] LABS: Anion Gap 14 (5-15); BUN 23 mg/dL (4-19); BUN/Creat Ratio 12.0 RATIO (10-20); Calcium,Total 7.9 mg/dL (7.6-11.0); Carbon Dioxide 22.1 mmol/L (21.0-32.0); Chloride 95 mmol/L (98-108); Estimated Creatinine Clearance 30.92 ml/min (50-250); Glucose 237 mg/dL (70-99); Potassium 2.9 mmol/L (3.3-5.1)
[2025-01-31 15:12] VITALS: BP 127/66; PULSE 99; RESP 29; O2SAT 94
[2025-01-31 16:25] VITALS: BP 104/56; BP 112/77; BP 124/71; PULSE 107; PULSE 109; PULSE 116
[2025-01-31 16:36] LABS: CORTISOL PM 26.00 ug/dL (2.68-10.50)
[2025-01-31 17:00] VITALS: BP 128/67; PULSE 89; RESP 18; O2SAT 99
[2025-01-31 17:07] VITALS: BP 128/67; PULSE 89; RESP 18; TEMP 37.1; O2SAT 99
[2025-01-31 17:54] LABS: Osmolality, Serum 285 mOsm/KG (280-301)
[2025-01-31 17:54] LABS: Osmolality, Urine 414 mOsm/KG
== END 2025-01-31 17:08 | disposition home or self-care (01) ==
PROVIDERS: Emergency Provider Emergency Medicine; PCP Internal Medicine; Visit Provider Emergency Medicine
DX: R19.7 Diarrhea, unspecified (principal); N18.4 Chronic kidney disease, stage 4 (severe); E10.649 Type 1 diabetes mellitus with hypoglycemia without coma; E10.22 Type 1 diabetes mellitus with diabetic chronic kidney disease; E87.1 Hypo-osmolality and hyponatremia; D72.829 Elevated white blood cell count, unspecified; E86.0 Dehydration; E87.6 Hypokalemia; D64.9 Anemia, unspecified; I12.9 Hypertensive chronic kidney disease with stage 1 through stage 4 chronic kidney disease, or unspecified chronic kidney disease; R00.0 Tachycardia, unspecified; Z85.3 Personal history of malignant neoplasm of breast; Z92.21 Personal history of antineoplastic chemotherapy; Z79.82 Long term (current) use of aspirin; Z79.899 Other long term (current) drug therapy; Z90.12 Acquired absence of left breast and nipple; Z96.659 Presence of unspecified artificial knee joint; R11.0 Nausea
CPT/HCPCS: 36591; 80048; 82436; 82533; 83930; 83935; 84300; 85025; 96360; 96361; 99283; A4216

== ENCOUNTER → 2025-03-01 | Outpatient (CLI) | payer MEDICARE, OTHER, SELFPAY ==
[2025-03-01 19:14] LABS: AST(SGOT) 24 U/L (<=31); Alanine Aminotransfer ALT/SGPT 14 U/L (<=34); Albumin, Serum 3.9 g/dL (3.4-4.8); Alkaline Phosphatase 85 U/L (35-104); Bilirubin, Direct 0.11 mg/dL (0.00-0.30); Globulin 3.7 g/dL (2.2-4.2); Vitamin D,25 Hydroxy 51.7 ng/mL (30-100)
[2025-03-03 04:07] LABS: GGTP 24 IU/L (0-60)
== END | disposition home or self-care (01) ==
LOC: MTLAB 14:34
PROVIDERS: PCP Internal Medicine; Referring Provider Internal Medicine Gastroenterology; Visit Provider Internal Medicine Gastroenterology
DX: M81.0 Age-related osteoporosis without current pathological fracture (principal); E55.9 Vitamin D deficiency, unspecified; Z79.899 Other long term (current) drug therapy
CPT/HCPCS: 36415; 80076; 82306; 82977

== ENCOUNTER → 2025-03-08 | Outpatient (CLI) | payer MEDICARE, OTHER, SELFPAY ==
--- NOTE | 2025-03-08 07:43 | US_ITS ---
PROCEDURE: ABD LIMITED W/ ELASTOGRAPHY REASON FOR EXAM: PBC COMPARISON: Prior study dated March 24, 2024. TECHNIQUE: Procedure Code: [id number] Modality: US Procedure: ABD LIMITED W/ ELASTOGRAPHY Right upper quadrant abdominal ultrasound. [facility] ElastQ Imaging shear wave elastography for non-invasive assessment of liver tissue stiffness. [facility]man EPIQ Elite. FINDINGS: LIVER: Size: Unremarkable Length: 15.2 cm Echotexture: Normal Contour: Normal Lesions: None identified Elastography: EQI Med: 6.7 kPa EQI Med Oziel: 1.49 m/s IQR/Med: 21.6 %* GALLBLADDER: Multiple gallstones. COMMON BILE DUCT: Normal measuring 4.8 mm . PANCREAS: Normal Visualized portions of the right kidney are unremarkable except for 2, small renal cysts. No right upper quadrant ascites. US/ABD Limited w/ Elastography IMPRESSION: [id number]-ko-mpowzpnj hepatic fibrosis. Metavir score of F2/F3 Small right renal cysts. Multiple gallstones. Reference Values: SRU <1.37 m/s (5.7kPa): No to mild fibrosis 1.37 m/s - 2.2 m/s: Moderate to severe fibrosis >2.2 m/s (15kPa): Significant fibrosis / cirrhosis METAVIR Score F2 or higher: 1.34 m/s (5.7kPa) F3 or higher: 1.55 m/s (7.3kPa) F4: 1.80 m/s (10kPa) * If the IQR/Med is >30%, the variance in the measurements is a large and the a ccuracy of the measurement may be in question. Reading Location: [place] [address]
== END | disposition home or self-care (01) ==
PROVIDERS: PCP Internal Medicine; Referring Provider Internal Medicine Gastroenterology; Visit Provider Internal Medicine Gastroenterology
DX: K74.5 Biliary cirrhosis, unspecified (principal)
CPT/HCPCS: 76705; 76981